=== PATIENT | female | born 1945 | race Caucasian/White ===

== ENCOUNTER → 2018-06-05 08:35 | Outpatient (CLI) | payer MEDICARE, OTHER, SELFPAY ==
[2018-06-05 11:15] LABS: AST(SGOT) 30 U/L (15-37); Alanine Aminotransfer ALT/SGPT 54 U/L (13-56); Anion Gap 11 (5-15); BUN 15 mg/dL (7-18); BUN/Creat Ratio 23.2 RATIO (10-20); Calcium,Total 8.7 mg/dL (8.5-10.1); Chloride 102 mmol/L (98-107); Cholesterol 167 mg/dL (200); Creatinine, Serum 0.65 mg/dL (0.55-1.02); EST Glomerular Filtration Rate 95 mL/min (>60); Est Glom Filt Rate - Afr Amer 115 mL/min (>60); Glucose 112 mg/dL (74-106); High Density Lipoprotein 69 mg/dL; Sodium Level 139 mmol/L (136-145); Triglycerides 66 mg/dL; Very Low Density Lipoprotein 13 mg/dL (5-40)
== END ==
PROVIDERS: Family Provider Family Medicine; PCP Family Medicine; Visit Provider Family Medicine
DX: I10 Essential (primary) hypertension (principal); E78.5 Hyperlipidemia, unspecified
CPT/HCPCS: 36415; 80048; 80061; 84450; 84460

== ENCOUNTER 2018-07-05 15:13 | Emergency (ER) | payer MEDICARE, OTHER, SELFPAY ==
[2018-07-05 15:14] VITALS: BP 161/66; PULSE 59; RESP 16; TEMP 36.6; O2SAT 96; BMI 25.7
--- NOTE | 2018-07-05 15:33 | RAD_ITS ---
STUDY: X-RAY - LUMBAR SPINE REASON FOR EXAM: Female, 72 years old. Sagittal plane with left-sided back and leg pain. TECHNIQUE: 3 view(s) of the lumbar spine were obtained. COMPARISON: None FINDINGS: Normal lumbar lordosis. There is no substantial scoliosis. There is a normal alignment of the vertebrae. There is multilevel endplate spondylosis of the lumbar vertebrae. There is multi-level degenerative disc disease with multi-level disc space narrowing. There is no evidence of acute fracture or loss of vertebral axial height. There is diffuse facet degenerative change. There is atherosclerotic calcification of the abdominal aorta without a demonstrated aneurysm. RAD/Lumbar Spine 2 or 3 Views IMPRESSION: Degenerative changes of the spine, as detailed above. Electronically Signed: Markell Cerna DO at 16:02 EST Tel [phone], Service support ,
--- NOTE | 2018-07-05 15:42 | ED.VISSUMM ---
- ER Visit Summary Date of Service: 07/05/18 Chief Complaint: Back pain History of Present Illness: The patient is a 72 F presenting for evaluation secondary to back pain. Patient reports that since yesterday she has had an onset of lower back pain that radiates somewhat down her left thigh. Patient denies that it was associated with any sort of spit civic injury. Patient states that it is a continuous pain that is worse with movement. She denies any bowel or bladder incontinence fevers recent surgeries or injections. Patient states that she did stumble over the weekend while she was removing snow, but she did not actually fall. Review of systems otherwise negative. Physical Examination: Vitals: Within normal limits General: Well-nourished well-developed no acute distress Head: Normocephalic atraumatic ENT: Moist mucous membranes Neck: Supple no JVD Cardiovascular: Heart regular rate and rhythm no murmurs Respiratory: Respirations nondistressed, lung sounds clear to auscultation bilaterally Abdominal: Soft, nontender, nondistended, normal bowel sounds, no evidence of abdominal masses or pulsatile mass Back: Normal to inspection, no midline tenderness to palpation, straight leg raise negative bilaterally Extremities: Nontender, nonedematous, 2+ radial and PT pulses bilaterally symmetric Skin: Normal color no rash Neuro: 5/5 strength hip flexion, knee flexion, knee extension, dorsiflexion, plantarflexion, EHL. Sensation intact over all dermatomes of the lower extremities bilaterally, 2+ patellar and Achilles reflexes bilaterally symmetric, negative clonus bilaterally Test Results: Lumbar x-ray demonstrates degenerative joint disease. Urinalysis is negative for blood or infection Emergency Department Course and Treatment: Patient presented with back pain. This pain seemed to radiate somewhat into her left groin, there is at least some concern for the possibility of a kidney stone so a urinalysis was obtained which was found to be negative making the likelihood of that much less. Patient's lumbar x-ray was essentially negative except for some degenerative arthritis. Patient did suffer a stumble a day or so prior to the onset of this back pain, and I believe that she likely has an element of a lumbar strain. She was recommended NSAIDs ice heat and stretching exercises for this. She was recommended to follow-up with primary care. Disposition: Discharge Impression: 1. Lumbosacral strain This note was generated with [employer] dictation software. It may contain incorrect words, spelling, and punctuation that were not noted in review of the chart prior to signing ED Disposition - Plan for ED Patient: Disposition: Home or Assisted Living Chief Complaint: Back Diagnosis: Lumbosacral strain Instructions: ED Sprain Strain Lumbar Referrals: Monika Venegas MD [Primary Care Provider] - 3-5 Days if not improving
[2018-07-05 16:06] LABS: Bacteria 0 SEEN /hpf (None Seen); Mucous, Urine 0 SEEN /hpf (<or=2+); Red Blood Cells-Urine 0 SEEN /hpf (0-5); Squamous Epithelial Cells - UA 0 SEEN /hpf (5-10); White Blood Cells 0 SEEN /hpf (0-5)
[2018-07-05 16:08] LABS: Color, Urine Yellow (Yellow); Glucose, Dipstick Normal (Normal); Ketone-Dipstick Negative (Negative); Leukocyte Esterase-Dipstick Negative /ul (Negative); Nitrite-Dipstick Negative (Negative); Occult Blood-Urine 10 /ul (Negative); Protein-Dipstick Negative (Negative); Urine Bilirubin Dipstick Negative (Negative); Urine Clarity Clear (Clear); Urine Urobilinogen Normal (Normal); Urine pH 6.5 (5.0 - 8.0)
[2018-07-05 16:55] VITALS: BP 172/67; PULSE 60; RESP 18; O2SAT 98
== END 2018-07-05 16:55 | disposition home or self-care (01) ==
PROVIDERS: Emergency Provider Emergency Medicine; Family Provider Family Medicine; PCP Family Medicine
DX: S39.012A Strain of muscle, fascia and tendon of lower back, initial encounter (principal); X58.XXXA Exposure to other specified factors, initial encounter; Y93.9 Activity, unspecified; Y92.9 Unspecified place or not applicable; M79.602 Pain in left arm; R20.2 Paresthesia of skin; I10 Essential (primary) hypertension; E78.00 Pure hypercholesterolemia, unspecified; Z79.899 Other long term (current) drug therapy
CPT/HCPCS: 72100; 81001; 99282

== ENCOUNTER 2018-09-06 15:30 | Outpatient (RCR) | payer MEDICARE, OTHER, SELFPAY ==
--- NOTE | 2018-07-26 15:26 | HP.PTEVAL_ITS ---
Patient's Visit Information FREDO MCGUIRE is a 72 year old F referred to Physical Therapy by Monika Venegas MD with a diagnosis of LOW BACK STRAIN. Date of Evaluation: 07/26/18 Physical Therapist: Ernie Darling PT, Cert MDT, OCS - Visit Plan Frequency: 2x /Week Duration: 4 Weeks Plan: DLS ABD/BACK,POSTURAL EX'S,MODLATIES PRN - Subjective Findings: This 72 y/o female presents to physical therapy with low back pain for 3weeks. Patient had to ER 3 weeks ago,did x-rays - . Patient left lumbar to pelvis region. Pain is described dull pain. Aggravted factors liffting,bending ,sitting. Alleviating factors walking and standing, Pain affects ADLS' and cleaning the house. Denies parathesia/tingling. Couging/sneezing -. Bowel/bladder -. No trauma . Possible incidous factors snow shoveling. Patient has had no prior therapy. Patient pain affects QOL and function. 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 SOCAIL: - Pain Left Back Pain Intensity (Out of 10): 4 Pain Intensity Range: 10 - Objective POSTURE: mild foward posture. GAIT: ambulates with normal alize. NEURO: denies parathesia/tingling,reflexes L3-4,L4-5,L5-S1 2/3. PALPATION: unremarkable. MMT: quads/hams 4/5,hip flexion 4-/5,ankle 4/5. SYMMMTRIES: align. LUMBAR ROM: flexion min loss decrease curve reversal,side glides decrease segmental motion,extenison mod/severe loss pain - Special Tests L/S Slump test left side: Negative L/S Slump test right side: Negative L/S Left Straight Leg Raise: Negative L/S Right Straight Leg Raise: Negative Lumbar Standing: Flexion - Mechanical Response: No effect Lumbar Standing: Flexion - Symptoms During Testing: No effect Lumbar Standing: Flexion - Symptoms After Testing: No effect Lumbar Standing: Extension - Mechanical Response: No effect Lumbar Standing: Extension - Symptoms During Testing: Increases Lumbar Standing: Extension - Symptoms After Testing: No worse Lumbar Standing: Right Side Glides - Mechanical Response: No effect Lumbar Standing: Right Side [place] - Symptoms During Testing: No effect Lumbar Standing: Right Side [place] - Symptoms After Testing: No effect Lumbar Standing: Left Side [place] - Mechanical Response: No effect Lumbar Standing: Left Side [place] - Symptoms During Testing: No effect Lumbar Standing: Left Side [place] - Symptoms After Testing: No effect - Goals Goal 1:: Independant with HEP Goal Time Frame: 4-6 Weeks Goal 2:: Independant with posture for ADL'S Goal Time Frame: 4-6 Weeks Goal 3:: Decrease lumbar pain by 50 % or greater to improve function and QOL Goal Time Frame: 4-6 Weeks Goal 4:: Patient to improve lumbar ROM for function of recovery Goal Time Frame: 4-6 Weeks Goal 5:: Patient ROSINA back owestry score by 5 points or greater to improve function. Goal Time Frame: 4-6 Weeks - Rehabilitation Potential Physical Therapy Diagnosis: Patient has symmtrical lumbtar pain with pain with extension,affects housework tasks,decrease core strength thus benifit from skilled PT Rehabilitation Potential: Good - Anticipated Interventions Patient/Client Instruction: Educate patient on: Condition, Plan of Care For the Purpose of:: To decrease pain, To increase ROM, To improve muscle performance and motor function, To improve ability to perform ADL's, To increase tolerance to activity/condition/position, To improve ability of physical actions for home/community/work/leisure, To improve health of tissue, To decrease soft tissue restriction, To increase flexibility/ROM, To improve health and function, To improve ability to perform tasks related to life management Therapeutic Exercise to Include: Strength training, Postural training, Flexibilty training, Active ROM, Dynamic Lumbar Stabilization For the Purpose of:: To decrease pain, To increase ROM, To improve muscle performance and motor function, To increase tolerance to activity/condition/position, To improve performance and independence with ADL's, To improve ability of physical actions for home/community/work/leisure, To improve health of tissue, To decrease soft tissue restriction, To increase flexibility/ROM, To improve ability to perform tasks related to life management TENS: Yes IF ES: Yes Cryotherapy (ice pack, ice massage): Yes Thermo therapy (hot pack): Yes Ultrasound (thermal/non thermal): Yes For the Purpose of:: To decrease pain, To increase ROM, To improve nutrient delivery to tissue, To increase oxygenation perfusion, To improve health of tissue, To decrease soft tissue restriction Thank you for the opportunity to evaluate your patient. For Medicare and Medicare HMO plans, please review the plan of care and approve it. It will need to be FAXED BACK to us at [phone] for Medicare purposes. For Medicare only, by signing this I certify the plan of care. Please let me know if there are questions or concerns regarding this plan of care. Physician Signature: Date:
--- NOTE | 2018-09-06 15:45 | HP.PTDCSUM ---
- PT D/C Summary It has been my pleasure to treat FREDO MCGUIRE under orders from Monika Venegas MD, for the diagnosis of LOW BACK STRAIN for a total of 9 visit(s). Discharge Date: 09/06/18 Please see the following information for a summary of their discharge status. - Subjective Subjective: Doing well ..Patient is able to do ADL''s and function - Pain Left Back Pain Intensity (Out of 10): 0 R back Pain Intensity (Out of 10): 0 LB Pain Intensity (Out of 10): 0 - Overall Improvement % Improvement: 100 - Objective Objective/Function: POSTURE: mild thoracic kyphosis. GAIT: normal alize. MMT: quads/hams/hip 4/5. LUMBAR ROM: lumbar flexion WFL ,extesnion min loss,side glides min loss. -SLR - Goals Goal 1:: Independant with HEP Goal Progress: Goal Met Goal 2:: Independant with posture for ADL'S Goal Progress: Goal Met Goal 3:: Decrease lumbar pain by 50 % or greater to improve function and QOL Goal Progress: Goal Met Goal 4:: Patient to improve lumbar ROM for function of recovery Goal Progress: Goal Met Goal 5:: Patient ROSINA back owestry score by 5 points or greater to improve function. Goal Progress: Goal Met - Plan Plan: D/C TO HEP AND GYM POSSIBLE AT - D/C Information Discharge Comments: HEP AND GYM AT If there are questions or concerns regarding this patient's physical therapy, please feel free to call me at [phone]. Thank you for the referral of this patient. Sincerely, Ernie Darling, PT, Cert MDT, OCS
== END 2018-09-06 19:00 | disposition home or self-care (01) ==
LOC: PT 15:30
PROVIDERS: Family Provider Family Medicine; PCP Family Medicine; Visit Provider Family Medicine
DX: S39.012D Strain of muscle, fascia and tendon of lower back, subsequent encounter (principal)
CPT/HCPCS: 97110; 97162; 97530

== ENCOUNTER → 2018-12-11 | Outpatient (CLI) | payer MEDICARE, OTHER, SELFPAY ==
[2018-12-11 13:59] LABS: AST(SGOT) 18 U/L (15-37); Alanine Aminotransfer ALT/SGPT 28 U/L (13-56); Anion Gap 7 (5-15); BUN 16 mg/dL (7-18); BUN/Creat Ratio 21.5 RATIO (10-20); Calcium,Total 8.8 mg/dL (8.5-10.1); Chloride 105 mmol/L (98-107); Cholesterol 146 mg/dL (200); Creatinine, Serum 0.74 mg/dL (0.55-1.02); EST Glomerular Filtration Rate 81 mL/min (>60); Est Glom Filt Rate - Afr Amer 98 mL/min (>60); Glucose 115 mg/dL (74-106); High Density Lipoprotein 66 mg/dL; Potassium 4.1 mmol/L (3.5-5.1); Sodium Level 140 mmol/L (136-145); Triglycerides 54 mg/dL; Very Low Density Lipoprotein 11 mg/dL (5-40)
== END | disposition home or self-care (01) ==
LOC: MFPLAB 10:11
PROVIDERS: Family Provider Family Medicine; PCP Family Medicine; Visit Provider Family Medicine
DX: E78.5 Hyperlipidemia, unspecified (principal); I10 Essential (primary) hypertension
CPT/HCPCS: 36415; 80048; 80061; 84450; 84460

== ENCOUNTER → 2019-06-11 10:06 | Outpatient (CLI) | payer MEDICARE, OTHER, SELFPAY ==
[2019-06-11 13:01] LABS: Anion Gap 5 (5-15); BUN 17 mg/dL (7-18); BUN/Creat Ratio 23.7 RATIO (10-20); Calcium,Total 8.8 mg/dL (8.5-10.1); Chloride 100 mmol/L (98-107); Creatinine, Serum 0.72 mg/dL (0.55-1.02); EST Glomerular Filtration Rate 84 mL/min (>60); Est Glom Filt Rate - Afr Amer 102 mL/min (>60); Glucose 121 mg/dL (74-106); Potassium 3.6 mmol/L (3.5-5.1); Sodium Level 134 mmol/L (136-145)
== END ==
PROVIDERS: Family Provider Family Medicine; PCP Family Medicine; Visit Provider Family Medicine
DX: I10 Essential (primary) hypertension (principal)
CPT/HCPCS: 36415; 80048

== ENCOUNTER → 2019-07-10 10:39 | Outpatient (CLI) | payer MEDICARE, OTHER, SELFPAY ==
--- NOTE | 2019-07-10 10:42 | BI_ITS ---
MAMMOGRAPHY - BILATERAL SCREENING REASON FOR EXAM: Female, 73 years old. Routine annual screening examination. PERTINENT HISTORY: Non-contributory. History of remote bilateral breast reduction and excisional breast biopsies. TECHNIQUE: Digital bilateral breast rhea (3D mammographic acquisition) in the CC and MLO projections. 2-D mediolateral oblique (MLO) and craniocaudad (CC) views of both breasts were obtained. CAD: Full Field Digital Mammography with Computer Added Detection was performed. COMPARISON: Comparison is made with prior examination dated May 27, 2016 and May 26, 2015. FINDINGS: Breast Composition: The breasts are heterogeneously dense, which may obscure small masses. There are no dominant masses or suspicious calcifications. Stable benign-appearing bilateral axillary lymph nodes. Stable architectural distortion from prior breast surgeries. No other significant abnormalities are identified. There has been no significant change since the prior study. BI/SCREEN MAMM (CAD) W/RHEA BILAT IMPRESSION: Stable bilateral screening mammogram. Yearly follow-up mammogram recommended. (A) ASSESSMENT CATEGORY: BIRADS Category 2: Benign. A letter regarding these results will be sent to the patient by the facility within 30 days. Approximately 10% of breast cancers are not detected by mammography. A normal mammogram should not delay biopsy of a clinically suspicious abnormality. [id number] Electronically Signed: Eugenio Bradshaw, at 12:57 EST , Service support ,
--- NOTE | 2019-07-10 10:51 | BD_ITS ---
STUDY: DUAL ENERGY X-RAY ABSORPTIOMETRY / DXA REASON FOR EXAM: Female, 73 years old. 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 COMPARISON: None. FINDINGS: Lumbar Spine (L1-L4): g/cm2 (0.917) / T-score (-2.1) / Z-score (-0.3) Findings are suggestive of osteopenia with a high fracture risk. Left Femur Total: g/cm2 (0.863) / T-score (-1.1) / Z-score (0.6) Left Femoral Neck: g/cm2 (0.679) / T-score (-2.6) / Z-score (-0.6) Right Femur Total: g/cm2 (0.867) / T-score (-1.1) / Z-score (0.6) Right Femoral Neck: g/cm2 (0.734) / T-score (-2.2) / Z-score (-0.2) BD/Dexa Bone Density Study IMPRESSION: The patient is considered osteoporotic as outlined below according to World Ar Organization (WHO) criteria with a high fracture risk. Reference Information: The T-score is the number of standard deviations above or below the standard which is normal for young adults at their peak bone mineral density. The World Health Organization (WHO) interprets the T-scores as follows: Above -1 Normal bone density Between -1 and -2.5 Osteopenia Equal to / or below -2.5 Osteoporosis As a practical clinical guideline, osteopenia may be graded as follows: Mild -1 through -1.5 Moderate -1.6 through -2.0 Severe -2.1 through -2.4 The Z-score is the number of standard deviations above or below age-matched controls. A Z-score of less than -1.5 would be considered abnormal. References: 1. NIH Osteoporosis and Related Bone Diseases http://www.osteo.org 2. International Society for Clinical Densitometry http://www.iscd.org 3. National Osteoporosis Foundation http://www.nof.org Electronically Signed: Eugenio Bradshaw, at 13:02 EST , Service support ,
== END ==
PROVIDERS: PCP Family Medicine; Referring Provider Family Medicine; Visit Provider Family Medicine
DX: Z00.00 Encounter for general adult medical examination without abnormal findings (principal); Z12.31 Encounter for screening mammogram for malignant neoplasm of breast; Z78.0 Asymptomatic menopausal state
CPT/HCPCS: 77063; 77067; 77080

== ENCOUNTER → 2019-12-11 10:04 | Outpatient (CLI) | payer MEDICARE, OTHER, SELFPAY ==
[2019-12-11 13:06] LABS: AST(SGOT) 14 U/L (15-37); Alanine Aminotransfer ALT/SGPT 25 U/L (13-56); Anion Gap 7 (5-15); BUN 15 mg/dL (7-18); BUN/Creat Ratio 19.9 RATIO (10-20); Calcium,Total 9.4 mg/dL (8.5-10.1); Chloride 97 mmol/L (98-107); Cholesterol 177 mg/dL (200); Creatinine, Serum 0.76 mg/dL (0.55-1.02); EST Glomerular Filtration Rate 79 mL/min (>60); Est Glom Filt Rate - Afr Amer 96 mL/min (>60); Glucose 133 mg/dL (74-106); High Density Lipoprotein 56 mg/dL; Potassium 3.8 mmol/L (3.5-5.1); Sodium Level 133 mmol/L (136-145); Triglycerides 131 mg/dL; Very Low Density Lipoprotein 26 mg/dL (5-40)
== END ==
PROVIDERS: PCP Family Medicine; Referring Provider Family Medicine; Visit Provider Family Medicine
DX: I10 Essential (primary) hypertension (principal); E78.5 Hyperlipidemia, unspecified
CPT/HCPCS: 36415; 80048; 80061; 84450; 84460

== ENCOUNTER → 2020-08-13 10:26 | Outpatient (CLI) | payer MEDICARE, OTHER, SELFPAY ==
[2020-08-12 14:34] VITALS: BMI 27.8
[2020-08-13 12:47] LABS: BUN 17 mg/dL (7-18); Creatinine, Serum 0.77 mg/dL (0.55-1.02); Glucose 133 mg/dL (74-106)
[2020-08-13 12:48] LABS: Anion Gap 7 (5-15); Calcium,Total 9.1 mg/dL (8.5-10.1); Chloride 99 mmol/L (98-107); EST Glomerular Filtration Rate 77 mL/min (>60); Est Glom Filt Rate - Afr Amer 93 mL/min (>60); Potassium 3.9 mmol/L (3.5-5.1); Sodium Level 133 mmol/L (136-145)
== END ==
PROVIDERS: PCP Family Medicine; Referring Provider Family Medicine; Visit Provider Family Medicine
DX: I10 Essential (primary) hypertension (principal)
CPT/HCPCS: 36415; 80048

== ENCOUNTER 2020-08-19 09:23 | Day surgery (SDC) | payer MEDICARE, OTHER, SELFPAY ==
[2020-08-12 14:34] VITALS: BMI 27.8
[2020-08-19] VITALS (9 sets, daily range): BP systolic 119–179; BP diastolic 49–74; PULSE 60–69; RESP 14–18; TEMP 36.2–37.2; O2SAT 95–100; BMI 26.9
[2020-08-19] MEDS: Lactated Ringers 1,000 ML 100 ML IV ×2 (10:09→14:45)
--- NOTE | 2020-08-19 10:32 | PCM.HP.BLA ---
Problem List (1) Hemorrhoids Status: Acute Qualifiers: Hemorrhoid type: third degree Qualified Code(s): K64.2 - Third degree hemorrhoids History and Physical Date of Admission: 08/19/20 Intake Vital Signs 08/12/20 Height 4 ft 8 in 08/12/20 Weight: 124 lb 08/12/20 BMI 27.8 08/12/20 BP 184/74 H 08/12/20 Blood Pressure Location Rt brachial 08/12/20 Position Sitting 08/12/20 Respiration 16 Intake Visit Reasons: HEMORRHOIDS Chief Complaint: hemorrhoids Personal Support Worker Required: No Is patient in pain?: No Allergies No Known Allergies Allergy (Verified 08/12/20 14:34) Medications Atenolol [Tenormin (beta bright)] 50 mg PO DAILY 07/05/18 [History Confirmed 07/05/18] Atorvastatin Calcium [Lipitor] 10 mg PO DAILY 07/05/18 [History Confirmed 07/05/18] Hydrochlorothiazide [Hctz] 25 mg PO DAILY 07/05/18 [History Confirmed 07/05/18] multivitamin 1 tab PO DAILY 08/12/20 [History Confirmed 08/12/20] PFSH Medical History (Updated 08/12/20 @ 14:33 by Breana Flynn) High cholesterol (Acute) HTN (hypertension) (Chronic) Surgical History (Updated 08/12/20 @ 14:46 by Breana Flynn) S/P bilateral breast reduction (Acute) S/P carpal tunnel release (Acute) S/P hysterectomy (Acute) Family History (Updated 08/12/20 @ 14:33 by Breana Flynn) Father CVA (cerebral vascular accident) Heart disease Mother Diabetes Social History (Updated 08/12/20 @ 15:[address] Damien Gallegos MD) Smoking Status: Never smoker alcohol intake: never HPI HPI HPI: FREDO MCGUIRE, is a 74 F who presents to the office today for HPI HPI HPI: FREDO MCGUIRE, is a 74 F who presents to the office today for Hemorrhoids. The patient reports that she has discomfort with defecation as well as blood in the stool. She says they intermittently bleed but they have started bleeding even with just urination. Patient's last colonoscopy was in 2015 was normal. ROS General General: No weight change or fatigue Cardio Cardiovascular: Yes high blood pressure; no murmur, pacemaker, heart disease, atrial fibrillation, heart attack, heart stent, palpitations, shortness of breat with exertion or chest pain Psych Psychiatric: No depression or anxiety Resp Respiratory: Yes shortness of breath, No sleep apnea, No cough, No COPD, No asthma, No emphysema, No wheezing Gastro Gastrointestinal: No abdominal pain, No nausea or vomiting, Yes diarrhea, No constipation, No blood in stool, No acid reflux, Yes hemorrhoids, No ulcers, No gallbladder problem, No black,tarry stools Hossein Hematologic: No blood thinners Exam Const General: cooperative Orientation: alert, oriented x3 Resp Effort & Inspection: normal respiratory effort Auscultation: clear to auscultation bilaterally Cardio Rate: regular rate Rhythm: regular rhythm Heart Sounds: no murmurs GI Inspection: non-distended Palpation: soft, nontender Other: On rectal exam the patient has grade 3 and 4 hemorrhoids with some ulceration of the internal hemorrhoids that are prolapsing Assessment & Plan Problems 1. Grade IV hemorrhoids K64.3 Plan The patient has third and fourth degree hemorrhoids which are ulcerated and likely the source of her bleeding. It appears that she has prolapse of the internal portion of her hemorrhoids. I did discuss hemorrhoidectomy with her. I discussed the risks including but not limited to bleeding, infection, recurrence of hemorrhoids, ongoing pain after surgery. The patient understands the risks and is willing to proceed with hemorrhoidectomy. Damien Gallegos MD Pager: [facility] [address] [place] [address], [address] [place] [address] Office:
[2020-08-19] MEDS: Cefotetan 2 GM in 0.9% NS 100 ML IV (10:50)
--- NOTE | 2020-08-19 11:00 | HEM_PTH ---
PATIENT: FREDO MCGUIRE LOC: [facility] U#:[id number] AGE/SX: 74/F ROOM: RE08/19/[address]: Dr. Damien Gallegos MD : 1945 BED: DIS: 08/19/2020 SPEC #: [id number] RECD: 08/19/20 12:17 STATUS: ALEJANDRINA RESonya #: [id number] MARLYN: 08/19/20 11:[address]: Damien Gallegos DEPT: SURGICAL PATHOLOGY RECD BY: Zeynep Gonzalez ENTERED: 08/19/20 12:47 SP TYPE: HEMORRHOID OTHR DR: Dr. Monika Venegas MD Tissues: HEMORRHOIDS Procedures: Surgery Specimen Level III HEADER OPERATION: Hemorrhoidectomy PRE-OP DIAGNOSIS: Grade IV hemorrhoids TISSUE SUBMITTED: A - Right superior hemorrhoid, B - Right inferior hemorrhoid MICROSCOPIC DIAGNOSIS A. Right superior hemorrhoid, hemorrhoidectomy: Submucosal vascular ectasia and thrombosis consistent with hemorrhoid. B. Right inferior hemorrhoid, hemorrhoidectomy: Submucosal vascular ectasia and thrombosis consistent with hemorrhoid. AM:levy 08/20/2020 MICROSCOPIC DESCRIPTION Slides are reviewed. GROSS DESCRIPTION A - Received in fixative is one container labeled with the patient's name and designated right superior hemorrhoid. The specimen consists of two irregular fragments of light costa mucosa with attached submucosal tissue that in aggregate measure 3 x 1.7 x 1.5 cm. Both fragments are bisected and submitted in their entirety in one cassette. B - Received in fixative is one container labeled with the patient's name and designated right inferior hemorrhoid. The specimen consists of one irregular fragment of light costa mucosa with attached submucosal tissue measuring 1.5 x 1.5 x 1 cm. The specimen is bisected and totally submitted in one cassette. / AM:levy 08/19/20 TC:5 CPT: 79294 x2
[2020-08-19] MEDS: Bupivacaine Mpf 0.5% 30 ML VIAL (11:15)
[2020-08-19] MEDS: Dibucaine 30 GM Tube 1 APPLIC (11:22)
--- NOTE | 2020-08-19 11:41 | PCM.OPRPT ---
Problem List (1) Hemorrhoids Status: Acute Qualifiers: Hemorrhoid type: third degree Qualified Code(s): K64.2 - Third degree hemorrhoids Report of Operation Date of Procedure: 08/19/20 Pre-Operative Diagnosis: Bleeding hemorrhoids grade 3 Post-Operative Diagnosis: Same Surgery/Procedure Performed:: Hemorrhoidectomy, 2 column internal and external Specimen's removed: Right superior and right inferior hemorrhoid Description of Procedure: The patient was brought back to the operating room and general anesthesia was induced. The patient was placed in a prone jackknife position. The buttocks were taped open. The perineum was prepped and draped in the normal usual fashion. A well-lubricated finger was used to perform a digital rectal exam the patient had 2 hemorrhoids on the right side which were ulcerated and enlarged. The patient also had a few hemorrhoids externally around the left side but none of those were ulcerated. It is likely that the runs on the right were larger and causing her issues. The right superior hemorrhoid was isolated and retracted medially. The harmonic scalpel was used to take the hemorrhoid material down and the mucosa was reapproximated with a running 2-0 chromic suture. In the same fashion the inferior hemorrhoid was grasped and retracted medially. Harmonic scalpel was used to take down this hemorrhoid column. The mucosa was reapproximated using a running 2-0 chromic suture. The area was irrigated and suctioned dry and appeared to be having good hemostasis. The area was injected with local anesthetic. Next a Gelfoam gauze was rolled and coated with dibucaine gel and placed into the rectal vault. Dressings were applied and the patient was awoken and taken to PACU in stable condition. - Admit VTE Documentation VTE Mechan Device Prophylaxis: SCD's
--- NOTE | 2020-08-19 11:50 | DCINST_ITS ---
Discharge Diet: No Restrictions Discharge Activity: Return to Normal Activity, May Not Drive - while you are taking narcotic pain medications. Do not drive, work with heavy equipment or sign legal documents for 24 hours after your surgery. Additional Activity Instructions:: Be aware that pain medications may cause nausea. You should typically eat light foods as you take your pain medications. Pain medications may also cause constipation, if you have difficulty with this please discuss with your doctor. Call your doctor if your incision/area has: Continuous Slow Oozing, Sudden Increased Bleeding, Increased Pain/ Swelling, Increased Redness, Foul Smelling Discharge, Swelling at the incision site Call your doctor if you observe: Fever of 101 or Higher Additional Dressing/Incision Instructions:: Leave the operative bandage on for 2 days. If a local anesthetic plug was placed in the anal area, try not to expel for [address]ucaine ointment on the perianal area as needed. Sitz baths twice daily and after bowel movements. Allergies/Adverse Reactions: Allergies No Known Allergies Allergy (Verified 08/19/20 09:43) Medications to take at Discharge Atenolol [Tenormin (beta bright)] 50 mg PO DAILY 07/05/18 Atorvastatin Calcium [Lipitor] 10 mg PO DAILY 07/05/18 Hydrochlorothiazide [Hctz] 25 mg PO DAILY 07/05/18 multivitamin 1 tab PO DAILY 08/12/20 Ascorbic Acid/Elderberry Fruit [Elderberry-Vit C 50-100 mg Chw] 1 ea PO DAILY 08/14/20 Calcium Carbonate/Vitamin D3 [Calcium 500 mg-Vit D3 600 Unit] 2 ea PO DAILY 08/14/20 Cholecalciferol (Vitamin D3) [Vitamin D3] 125 mcg PO DAILY 08/14/20 Cyanocobalamin (Vitamin B-12) [Vitamin B-12] 1,000 mcg PO DAILY 08/14/20 Glucosam/[place]-Msm1/C/Javier/Bosw [Osteo Bi-Flex Caplet] 2 tab PO DAILY 08/14/20 Docusate Sodium [Colace] 100 mg PO BID #30 cap 08/19/20 Oxycodone HCl/Acetaminophen [Percocet 5-325 mg Tablet] 1 - 2 tab PO Q6H PRN PRN 5 Days #40 tablet 08/19/20 The following prescriptions were given: Docusate Sodium [Colace] 100 mg PO BID #30 cap Transmission Status: Pending to [facility] Oxycodone HCl/Acetaminophen [Percocet 5-325 mg Tablet] 1 - 2 tab PO Q6H PRN PRN 5 Days #40 tablet PRN Reason: Pain Score 4-10/10 Transmission Status: Sent to [facility] Primary Care Physician: Monika Venegas MD [Primary Care Provider] - Test Results: Test results from this visit will be discussed in further detail at your follow- up appointment, if applicable. Please Follow Up With: Damien Gallegos MD When: Please call to schedule 2 week follow up appointment. [phone]
== END 2020-08-19 16:15 | disposition home or self-care (01) ==
LOC: SDC 09:24 → AC 09:24
PROVIDERS: PCP Family Medicine; Referring Provider Surgery; Visit Provider Surgery
PROC: (CPT 46260; principal; 2020-08-19 10:45)
DX: K64.2 Third degree hemorrhoids (principal); Z20.828 Contact with and (suspected) exposure to other viral communicable diseases; I10 Essential (primary) hypertension; E78.00 Pure hypercholesterolemia, unspecified; Z78.0 Asymptomatic menopausal state; Z86.718 Personal history of other venous thrombosis and embolism; Z79.899 Other long term (current) drug therapy
CPT/HCPCS: 00902; 46260; 87426; 88304; C9803; J7120; J2405

== ENCOUNTER 2020-08-28 18:54 | Observation (INO) | payer MEDICARE, OTHER, SELFPAY ==
[2020-08-19 09:45] VITALS: BMI 26.9
[2020-08-28 18:56] VITALS: BP 173/76; PULSE 63; RESP 16; TEMP 36.4; O2SAT 97; BMI 27.3
[2020-08-28 19:55] VITALS: BP 157/63; PULSE 64; RESP 16; O2SAT 99
[2020-08-28 19:58] LABS: Absolute Lymphocyte Count 0.98 X10^3/uL (0.83-4.51); Absolute Neutrophil Count 10.6 X10^3/uL (2.0-7.7); Basophil# 0.03 X10^3/uL; Basophil% 0.2 % (0-1); Eosinophil# 0.09 X10^3/uL; Eosinophils% 0.7 % (0-5); Hematocrit 30.1 % (37-47); Hemoglobin 10.9 g/dL (12.0-15.0); Lymphocyte # 0.98 X10^3/ul (4.0); Lymphocyte % 7.7 % (19-41); Mean Corp Hgb Conc 36.2 g/dL (32-36); Mean Corpuscular Hgb 30.4 pg (27.0-32.0); Mean Corpuscular Volume 84.1 fL (81-99); Mean Platelet Vol. 9.8 fl (6.2-12.0); Monocyte# 0.99 X10^3/uL; Monocyte% 7.8 % (0-10); NRBC Flagged by Analyzer 0 % (0-5); Neutrophil # 10.58 X10^3/uL (2.7-7.7); Neutrophil % 83.1 % (47-70); Platelet Count 266 K/mm3 (150-450); RBC Distribution Width CV 13.2 % (11.6-14.6); RBC Distribution Width SD 39.7 fl (35.1-43.9); Red Blood Count 3.58 M/mm3 (4.2-5.4); White Blood Count 12.7 K/mm3 (4.4-11.0)
[2020-08-28 20:10] LABS: Prothrombin Time (Protime)PT. 12.7 SECONDS (11.7-14.9)
[2020-08-28 20:14] LABS: ALB/GLOB Ratio 1.2 RATIO (0.9-2.4); AST(SGOT) 33 U/L (15-37); Alanine Aminotransfer ALT/SGPT 45 U/L (13-56); Albumin, Serum 4.1 g/dL (3.2-5.0); Alkaline Phosphatase 89 U/L (45-117); Anion Gap 6 (5-15); BUN 11 mg/dL (7-18); BUN/Creat Ratio 17.4 RATIO (10-20); Calcium,Total 8.9 mg/dL (8.5-10.1); Chloride 90 mmol/L (98-107); Creatinine, Serum 0.63 mg/dL (0.55-1.02); EST Glomerular Filtration Rate 97 mL/min (>60); Est Glom Filt Rate - Afr Amer 117 mL/min (>60); Globulin 3.3 g/dL (2.2-4.2); Glucose 116 mg/dL (74-106); Potassium 3.8 mmol/L (3.5-5.1); Protein, Total 7.4 g/dL (6.4-8.2); Sodium Level 122 mmol/L (136-145)
--- NOTE | 2020-08-28 20:18 | HP.PCM_ITS ---
Problem List (1) Rectal bleeding Status: Acute History of Present Illness Date of Admission: 08/28/20 The patient is a 74 year old F who presents to the emergency room with rectal bleeding. The patient had a hemorrhoidectomy 10 days ago for rectal bleeding and irritation. Since then the patient reports she has been doing well until today. She was having 3 loose bowel movements this morning and then this afternoon she had a large bloody bowel movement. Since then she has had several large bloody bowel movements. She is not having any abdominal pain or bloody vomiting. Past Medical History Medical History: Medical History (Last Updated 08/12/20 @ 14:33 by Breana Flynn) High cholesterol E78.00 HTN (hypertension) I10 Allergies No Known Allergies Allergy (Verified 08/28/20 18:56) Home Medications: Ambulatory Orders Medication Instructions Recorded Atenolol [Tenormin (beta bright)] 50 mg PO DAILY 07/05/18 Atorvastatin Calcium [Lipitor] 10 mg PO DAILY 07/05/18 Hydrochlorothiazide [Hctz] 25 mg PO DAILY 07/05/18 multivitamin 1 tab PO DAILY 08/12/20 Ascorbic Acid/Elderberry Fruit 1 ea PO DAILY 08/14/20 [Elderberry-Vit C 50-100 mg Chw] Calcium Carbonate/Vitamin D3 2 ea PO DAILY 08/14/20 [Calcium 500 mg-Vit D3 600 Unit] Cholecalciferol (Vitamin D3) 125 mcg PO DAILY 08/14/20 [Vitamin D3] Cyanocobalamin (Vitamin B-12) 1,000 mcg PO DAILY 08/14/20 [Vitamin B-12] Glucosam/Jeramie-Msm1/C/Javier/Bosw 2 tab PO DAILY 08/14/20 [Osteo Bi-Flex Caplet] Docusate Sodium [Colace] 100 mg PO BID #30 cap 08/19/20 Surgical History: Surgical History (Last Updated 08/12/20 @ 14:46 by Breana Flynn) S/P bilateral breast reduction Z98.890 S/P carpal tunnel release Z98.890 S/P hysterectomy Z90.710 Smoking Status: Never smoker Review of Systems Constitutional: Denies: Anorexia, Fever HEENT: Denies: Difficulty Swallowing Respiratory: Denies: Shortness of Breath Gastrointestinal: Reports: Diarrhea, Hematochezia. Denies: Abdominal Pain, Constipation, Hematemesis, Nausea, Melena, Vomiting Genitourinary: Denies: Dysuria Musculoskeletal: Denies: Joint Tenderness Skin: Denies: Jaundice Neurological: Denies: Balance problems Psychiatric: Reports: Anxiety. Denies: Depression Hematologic/ Lymphatic: Denies: Easy Bleeding VTE Information - Inpt Only VTE Present on Admission: No VTE Mechan Device Prophylaxis: SCD's Patient Problems: Active and Suspected Problems (Last Updated 08/12/20 @ 14:33 by Breana Flynn) Rectal bleeding (Acute) - Physical Exam Vitals/I&O's: Vital Signs Temp Pulse Resp BP Pulse Ox 97.5 F L 64 16 157/63 H 99 08/28/20 18:56 08/28/20 19:55 08/28/20 19:55 08/28/20 19:55 08/28/20 19:55 Oxygen Delivery Method Room Air Weight: 124 lb Body Mass Index (BMI) 27.3 General: Alert, Oriented x3 Neck: No JVD Lungs: Normal air movement Cardiovascular: Regular rate, Regular Rhythm Abdomen: Soft, Non Tender, Non-Distended, - - Red blood on rectal exam Skin: No rashes Musculoskeletal: No Muscle Wasting Neurological: Cranial nerves II-XII grossly intact Psych/Mental Status: Normal Affect Laboratory Results 08/28/20 19:48: WBC 12.7 H, RBC 3.58 L, Hgb 10.9 L, Hct 30.1 L, MCV 84.1, MCH 30.4, MCHC 36.2 H, RDW Std Deviation 39.7, RDW Coeff of Marga 13.2, Plt Count 266, MPV 9.8, Immature Gran % (Auto) 0.500, Neut % (Auto) 83.1 H, Lymph % (Auto) 7.7 L, [place] % (Auto) 7.8, Eos % (Auto) 0.7, Baso % (Auto) 0.2, Absolute Neuts (auto) 10.6 H, Absolute Lymphs (auto) 0.98, Nucleated RBC % 0 08/28/20 19:48: PT 12.7, INR 1.0, APTT 24.0 L 08/28/20 19:48: Sodium 122 L, Potassium 3.8, Chloride 90 L, Carbon Dioxide 26.0, Anion Gap 6, BUN 11, Creatinine 0.63, Estim Creat Clear Calc 42.50, Est GFR (MDRD) Af Amer 117, Est GFR (MDRD) Non-Af 97, BUN/Creatinine Ratio 17.4, Glucose 116 H, Calcium 8.9, Total Bilirubin 0.80, AST 33, ALT 45, Alkaline Phosphatase 89, Total Protein 7.4, Albumin 4.1, Globulin 3.3, Albumin/Globulin Ratio 1.2 08/28/20 19:48: Blood Type Pending, Antibody Screen Pending Current Medications Acetaminophen (Acetaminophen 325 Mg Tablet) 650 mg PO Q4H PRN PRN PRN Reason: P/F Sodium Chloride () 1,000 mls @ 100 mls/hr IV .Q10H TISHA Ondansetron HCl (Ondansetron 4 Mg/2 Ml Vial) 4 mg IV Q6H PRN PRN PRN Reason: NAUSEA Pantoprazole Sodium (Pantoprazole Sodium 40 Mg Tablet) 40 mg PO DAILY TISHA Assessment/Plan All Active Problems (Last Updated 08/12/20 @ 14:33 by Breana Flynn) Hemorrhoids (Acute) Rectal bleeding (Acute) 74-year-old female with rectal bleeding 1. The patient is having a heavy amount of rectal bleeding currently. She had a hemorrhoidectomy 10 days ago. On rectal exam the hemorrhoids did not appear to be active bleeding but then she had a large bowel movement with blood after rectal exam. I am unsure if the patient is having bleeding from the hemorrhoids or proximal GI tract. 2. At this time I will admit the patient and continue serial hemoglobin checks. Currently her hemoglobin is 10.9. She has had a type and screen. If the bleeding continues through the night and does not cease I will take her back for exploration tomorrow to see if any of the hemorrhoidectomy sites are bleeding. If the bleeding appears to be coming from more proximal we will bowel prep her and perform a colonoscopy. Her last colonoscopy was in 2016 and was normal. Patient is not taking any blood thinners. She will be kept on a clear liquid diet. Damien Gallegos MD Pager: [facility] [place] [facility] [address] [place] [address], [address] [place] [address] Office:
--- NOTE | 2020-08-28 20:21 | ED.VIS.GEN ---
History of Present Illness Chief Complaint: GI Bleed Informant: Patient Onset: Today Context: Sudden Onset Timing: Intermittent Narrative: Patient is a 74-year-old female that is status post hemorrhoidectomy presenting with rectal bleeding. Patient is on any blood thinners. She states she started having multiple bowel movements this morning and started having blood with her bowel movements around 430 this afternoon. She states since then she has had 6 or 7 episodes of bloody diarrhea. She is not sure if the stool is black or discomfort and blood. She states before that she was having normal postoperative bleeding. She denies any lightheadedness or dizziness. She denies any cyst abdominal pain. She has been taking Tylenol and Motrin to control her pain. No other complaints at this time. Past Medical History - Allergies and Home Meds Allergies/Adverse Reactions: Allergies No Known Allergies Allergy (Verified 08/28/20 18:56) Primary Care Physician: Monika Venegas MD [Primary Care Provider] - Past Medical History: - - Hypertension, hyperlipidemia Surgical History: - - Hemorrhoidectomy Lives: Alone Smoking Status: Never smoker Review of Systems General: Denies: Chills, Fever, Sweats Eyes: Denies: Visual changes - bilaterally, Diplopia ENT: Denies: Rhinorrhea, Sore throat Cardiovascular: Denies: Chest pain, Palpitations Respiratory: Denies: Dyspnea, Cough, Dyspnea on exertion Gastrointestinal: Reports: Diarrhea, Hematochezia. Denies: Abdominal pain, Nausea, Vomiting, Melena Genitourinary: Denies: Dysuria, Hematuria, Frequency Musculoskeletal: Denies: Back pain, Extremity Pain Skin: Denies: Rash, Wounds Neurological: Denies: Headache, Weakness, Numbness Physical Exam Vital Signs/Narrative: Vital Signs Temp Pulse Resp BP Pulse Ox 08/28/20 19:55 64 16 157/63 H 99 08/28/20 18:56 97.5 F L 63 16 173/76 H 97 Inital Vital Signs reviewed: Yes General: Well nourished, Well developed, No Acute Distress Head: Normocephalic, Atraumatic Eyes: Perrl, EOMI. Negative for: Pale conjunctiva ENT: Moist mucous membranes, No rhinorrhea Neck: Supple, Nontender Cardiovascular: Regular rate, Regular rhythm, No murmurs Respiratory: No distress, CTA bilaterally, Chest nontender Abdomen: Soft, Nontender, Nondistended, Normal bowel sounds Rectal: - - Small amount of blood noticed at the rectum but no active bleeding. Sutures in place from recent surgery. Back: Nontender, Normal Inspection Extremities: Nontender, No edema Skin: Normal color, No rash Neurological: Alert, Oriented x3, Cranial nerves II-XII grossly intact, Normal Strength, Normal Sensation Psychological: Normal affect, Normal Mood Diagnostic/Tx/Re-eval Laboratory Data 08/28/20 08/28/20 08/28/20 19:48 19:48 19:48 WBC 12.7 H RBC 3.58 L Hgb 10.9 L Hct 30.1 L MCV 84.1 MCH 30.4 MCHC 36.2 H RDW Std Deviation 39.7 RDW Coeff of Marga 13.2 Plt Count 266 MPV 9.8 Immature Gran % (Auto) 0.500 Neut % (Auto) 83.1 H Lymph % (Auto) 7.7 L Angelina % (Auto) 7.8 Eos % (Auto) 0.7 Baso % (Auto) 0.2 Absolute Neuts (auto) 10.6 H Absolute Lymphs (auto) 0.98 Nucleated RBC % 0 PT 12.7 INR 1.0 APTT 24.0 L Sodium 122 L Potassium 3.8 Chloride 90 L Carbon Dioxide 26.0 Anion Gap 6 BUN 11 Creatinine 0.63 Estim Creat Clear Calc 42.50 Est GFR (MDRD) Af Amer 117 Est GFR (MDRD) Non-Af 97 BUN/Creatinine Ratio 17.4 Glucose 116 H Calcium 8.9 Total Bilirubin 0.80 AST 33 ALT 45 Alkaline Phosphatase 89 Total Protein 7.4 Albumin 4.1 Globulin 3.3 Albumin/Globulin Ratio 1.2 - Medical Decision Making Evaluated for bright red blood per rectum. She is 10 days status post hemorrhoidectomy. Patient is having large volume episodes of hematochezia and has 2 episodes in the ER. She is hemodynamically stable. She is mildly anemic I do not have a baseline to compare to. Patient is evaluated by her surgeon, Dr. Gallegos, who will admit the patient for further evaluation and serial H&H's. Patient might require endoscopy tomorrow or revision. Type and cross is sent. Patient does not require transfusion at this time. Patient agreeable plan of care. ED Disposition - Plan for ED Patient: Disposition: Acute Care Hospital [facility] Diagnosis: Bleeding hemorrhoid Referrals: Monika Venegas MD [Primary Care Provider] -
[2020-08-28 20:27] VITALS: BP 167/52; PULSE 62; RESP 16; TEMP 37; O2SAT 99
[2020-08-28] MEDS: 0.9% Normal Saline 1,000 ML 100 ML IV (20:29)
[2020-08-28 21:16] VITALS: BMI 27.1
[2020-08-28 21:24] VITALS: BP 124/45; PULSE 60; RESP 18; TEMP 36.7; O2SAT 98
[2020-08-28 21:44] VITALS: BMI 27.2
[2020-08-29] VITALS (11 sets, daily range): BP systolic 114–164; BP diastolic 41–63; PULSE 62–99; RESP 12–18; TEMP 36.8–36.9; O2SAT 96–100; BMI 27.1; BMI 27.2
[2020-08-29 00:51] LABS: Hematocrit 23.6 % (37-47); Hemoglobin 8.3 g/dL (12.0-15.0)
[2020-08-29] MEDS: Ondansetron 4 MG/2 ML Vial IV (02:49)
[2020-08-29] MEDS: 0.9% Saline Lock 10 ML Syringe IV ×2 (02:49→05:59)
[2020-08-29 05:40] LABS: Absolute Lymphocyte Count 0.69 X10^3/uL (0.83-4.51); Absolute Neutrophil Count 10.2 X10^3/uL (2.0-7.7); Basophil# 0.02 X10^3/uL; Basophil% 0.2 % (0-1); Eosinophil# 0.01 X10^3/uL; Eosinophils% 0.1 % (0-5); Hematocrit 22.9 % (37-47); Hemoglobin 8.1 g/dL (12.0-15.0); Lymphocyte # 0.69 X10^3/ul (4.0); Lymphocyte % 5.9 % (19-41); Mean Corp Hgb Conc 35.4 g/dL (32-36); Mean Corpuscular Hgb 30.1 pg (27.0-32.0); Mean Corpuscular Volume 85.1 fL (81-99); Mean Platelet Vol. 10.1 fl (6.2-12.0); Monocyte# 0.65 X10^3/uL; Monocyte% 5.6 % (0-10); NRBC Flagged by Analyzer 0 % (0-5); Neutrophil # 10.17 X10^3/uL (2.7-7.7); Neutrophil % 87.7 % (47-70); Platelet Count 236 K/mm3 (150-450); RBC Distribution Width CV 13.1 % (11.6-14.6); RBC Distribution Width SD 39.8 fl (35.1-43.9); Red Blood Count 2.69 M/mm3 (4.2-5.4); White Blood Count 11.6 K/mm3 (4.4-11.0)
[2020-08-29] MEDS: 0.9% Normal Saline 1,000 ML 100 ML IV ×2 (05:58→14:30)
[2020-08-29] MEDS: Pantoprazole Sodium 40 MG Tablet PO (07:55)
--- NOTE | 2020-08-29 10:20 | EKG12_ITS ---
Test Reason : PRE OP Blood Pressure : / mmHG Vent. Rate : 065 BPM Atrial Rate : 065 BPM P-R Int : 146 ms QRS Dur : 078 ms QT Int : 440 ms P-R-T Axes : 054 030 047 degrees QTc Int : 457 ms Sinus rhythm with Premature atrial complexes Otherwise normal ECG When compared with ECG of 21-AUG-2003 09:11, Premature atrial complexes are now Present QT has lengthened Confirmed by LOLIS DEL VALLE, BROCK ([id number]), index editor ARETHA GARCIA ([id number]) on 09/02/2020 10:56:53 AM Referred By: AMBER Confirmed By:BROCK DANIELLE MD
--- NOTE | 2020-08-29 10:34 | PCM.PN.SRG ---
Patient Problems: Active and Suspected Problems (Last Updated 08/12/20 @ 14:33 by Breana Flynn) Rectal bleeding (Acute) Subjective: The patient had a few episodes of bleeding before midnight. Since midnight she has had no blood per rectum. - Physical Exam Vitals/I&O's: Vital Signs Temp Pulse Resp BP Pulse Ox 98.4 F 76 16 137/51 H 100 08/29/20 07:25 08/29/20 07:38 08/29/20 07:38 08/29/20 07:25 08/29/20 07:38 Oxygen Delivery Method Room Air Weight: 123 lb 7.342 oz Body Mass Index (BMI) 27.1 Intake and Output for Last 24 Hours 08/27/20 08/28/20 08/29/20 23:59 23:59 23:59 Intake Total 1228.33 / 1228.33 Balance 1228.33 / 1228.33 General: Alert, Oriented x3 Lungs: Normal air movement Cardiovascular: Regular Rhythm Abdomen: Soft, Non Tender, Non-Distended Microbiology Past 72 Hours 08/28/20 20:28 Mucosa - Nose SARS-CoV-2 Antigen (Rapid) - Final Laboratory Results 08/28/20 19:48: WBC 12.7 H, RBC 3.58 L, Hgb 10.9 L, Hct 30.1 L, MCV 84.1, MCH 30.4, MCHC 36.2 H, RDW Std Deviation 39.7, RDW Coeff of Marga 13.2, Plt Count 266, MPV 9.8, Immature Gran % (Auto) 0.500, Neut % (Auto) 83.1 H, Lymph % (Auto) 7.7 L, Gonzales % (Auto) 7.8, Eos % (Auto) 0.7, Baso % (Auto) 0.2, Absolute Neuts (auto) 10.6 H, Absolute Lymphs (auto) 0.98, Nucleated RBC % 0 08/28/20 19:48: PT 12.7, INR 1.0, APTT 24.0 L 08/28/20 19:48: Sodium 122 L, Potassium 3.8, Chloride 90 L, Carbon Dioxide 26.0, Anion Gap 6, BUN 11, Creatinine 0.63, Estim Creat Clear Calc 42.50, Est GFR (MDRD) Af Amer 117, Est GFR (MDRD) Non-Af 97, BUN/Creatinine Ratio 17.4, Glucose 116 H, Calcium 8.9, Total Bilirubin 0.80, AST 33, ALT 45, Alkaline Phosphatase 89, Total Protein 7.4, Albumin 4.1, Globulin 3.3, Albumin/Globulin Ratio 1.2 08/28/20 19:48: Blood Type AB NEGATIVE, Antibody Screen NEGATIVE 08/29/20 00:45: Hgb 8.3 L, Hct 23.6 L 08/29/20 05:12: WBC 11.6 H, RBC 2.69 L, Hgb 8.1 L, Hct 22.9 L, MCV 85.1, MCH 30.1, MCHC 35.4, RDW Std Deviation 39.8, RDW Coeff of Marga 13.1, Plt Count 236, MPV 10.1, Immature Gran % (Auto) 0.500, Neut % (Auto) 87.7 H, Lymph % (Auto) 5.9 L, Gonzales % (Auto) 5.6, Eos % (Auto) 0.1, Baso % (Auto) 0.2, Absolute Neuts (auto) 10.2 H, Absolute Lymphs (auto) 0.69 L, Nucleated RBC % 0 Current Medications Acetaminophen (Acetaminophen 325 Mg Tablet) 650 mg PO Q4H PRN PRN PRN Reason: PAIN 1-10/F Sodium Chloride () 1,000 mls @ 100 mls/hr IV .Q10H TISHA Last Admin: 08/29/20 05:58 Dose: 100 mls/hr Documented by: Ondansetron HCl (Ondansetron 4 Mg/2 Ml Vial) 4 mg IV Q6H PRN PRN PRN Reason: NAUSEA Last Admin: 08/29/20 02:49 Dose: 4 mg Documented by: Pantoprazole Sodium (Pantoprazole Sodium 40 Mg Tablet) 40 mg PO DAILY TISHA Last Admin: 08/29/20 07:55 Dose: 40 mg Documented by: Sodium Chloride (0.9% Saline Lock 10 Ml Syringe) 10 - 40 ml IV UD PRN PRN Reason: SALINE FLUSH Last Admin: 08/29/20 05:59 Dose: 10 ml Documented by: Medical Necessity - Tobacco Use Smoking Status: Never smoker Assessment/Plan All Active Problems (Last Updated 08/12/20 @ 14:33 by Breana Flynn) Hemorrhoids (Acute) Rectal bleeding (Acute) 74-year-old female with rectal bleeding status post hemorrhoidectomy 1. The patient reports no bleeding since midnight. Her hemoglobin at 1 AM was 8.3 and this morning is 8.1. I discussed observation versus exploration with her. The patient is very anxious and I believe that she has a fair chance of rebleeding. I discussed exam under anesthesia with her. I discussed the risks of worsening bleeding or infection. The patient understands the risks and would like exam under anesthesia. I will perform exam under anesthesia and stop any bleeding necessary and oversew the hemorrhoidectomy sites. Damien Gallegos MD Pager: [facility] [address] [place] [address] [address] [place] [address] Office:
--- NOTE | 2020-08-29 10:43 | CASEMGMT ---
MICAH LEY Assessment: Face to Face with pt for initial transition planning/care coordination assessment. RN CM introduced self and role at [facility], pt voices understanding and consents to assessment. Pt is A/O x4 and answers all questions appropriately at this time. Pt lying in bed with dtr at bedside. Care providers, pharmacy, and demographics verified/updated. Admitting Dx: Rectal Bleeding PCP: Dr. Venegas Specialists: Dr. Gallegos, surgeon Preferred Pharmacy: [facility] Retail Insurance: [employer], Commercial Prescription Benefit: Induction Manager LW/HPOA: Pt has LW and DPOA on file at [facility]. Pt DPOA is her dtr Alexsandra Grullon. LNOK: Dtr, Alexsandra Grullon Living Arrangements: Pt lives alone in a single story house with 4 steps to enter with a rail. Pt states she is I in ADL's and denies concerns at home. Transportation: Pt states she drives self. Dtr is available if needed for transportation. No concerns regarding this. DME/HHC/SNF: Pt states she has a cane and grab bar in the shower. Pt denies previous HHC and SNF stay. Pt states no concerns with going home at time of dc. Dtr states she will stay the night with the pt the night after dc as she did when she had her surgery a couple of weeks ago. Pt states no further concerns/needs. CM to follow. Advised pt to ask CM if any further question/concerns/needs arise, voices understanding. Pt Goal: Home Plan: Home with family support, fu plans in place.
[2020-08-29] MEDS: Bupivacaine Mpf 0.5% 30 ML VIAL (12:44)
[2020-08-29] MEDS: Dibucaine 30 GM Tube 1 APPLIC (13:20)
--- NOTE | 2020-08-29 14:36 | OP.PCM_ITS ---
Problem List (1) Rectal bleeding Status: Acute Report of Operation Date of Procedure: 08/29/20 Pre-Operative Diagnosis: Recurrent rectal bleeding 10 days after hemorrhoidectomy Post-Operative Diagnosis: Same Surgery/Procedure Performed:: Rectal exam under anesthesia Description of Procedure: The patient was brought back to the operating room and general anesthesia was induced. The patient was placed in prone jackknife position and the buttocks were taped open. The perineal area was prepped and draped in usual sterile fashion. A well-lubricated finger was used to perform a rectal exam and a well- lubricated speculum was placed into the rectum. The previous hemorrhoidal columns were inspected and there was no active bleeding only a slow ooze. The base of each hemorrhoidal column was sutured using a 2-0 Vicryl suture and the mucosa was once again reapproximated using a combination of interrupted 2-0 Vicryl sutures and running 2-0 chromic suture. Both of these areas had good hemostasis at the end of the case. A dibucaine soaked Gelfoam pad was rolled and placed in the rectal vault. Local anesthesia was injected around the anal area. Patient was awoken and taken to the PACU in stable condition. - Admit VTE Documentation VTE Mechan Device Prophylaxis: SCD's
--- NOTE | 2020-08-29 14:38 | DCINST_ITS ---
Discharge Diet: No Restrictions Discharge Activity: Return to Normal Activity, May Not Drive - while you are taking narcotic pain medications. Do not drive, work with heavy equipment or sign legal documents for 24 hours after your surgery., May Shower, May Take a Tub Bath Additional Activity Instructions:: Be aware that pain medications may cause nausea. You should typically eat light foods as you take your pain medications. Pain medications may also cause constipation, if you have difficulty with this please discuss with your doctor. Call your doctor if your incision/area has: Continuous Slow Oozing, Sudden Increased Bleeding, Increased Pain/ Swelling, Increased Redness Call your doctor if you observe: Fever of 101 or Higher Additional Dressing/Incision Instructions:: Leave the operative bandage on for 2 days. If a local anesthetic plug was placed in the anal area, try not to expel for [address]ucaine ointment on the perianal area as needed. Sitz baths twice daily and after bowel movements. Allergies/Adverse Reactions: Allergies No Known Allergies Allergy (Verified 08/28/20 18:56) Medications to take at Discharge Atenolol [Tenormin (beta bright)] 50 mg PO DAILY 07/05/18 Atorvastatin Calcium [Lipitor] 10 mg PO QHS 07/05/18 Hydrochlorothiazide [Hctz] 25 mg PO DAILY 07/05/18 multivitamin 1 tab PO DAILY 08/12/20 Ascorbic Acid/Elderberry Fruit [Elderberry-Vit C 50-100 mg Chw] 1 ea PO DAILY 08/14/20 Calcium Carbonate/Vitamin D3 [Calcium 500 mg-Vit D3 600 Unit] 2 ea PO DAILY 08/14/20 Cholecalciferol (Vitamin D3) [Vitamin D3] 125 mcg PO DAILY 08/14/20 Cyanocobalamin (Vitamin B-12) [Vitamin B-12] 1,000 mcg PO DAILY 08/14/20 Glucosam/[place]amie-Msm1/C/Javier/Bosw [Osteo Bi-Flex Caplet] 2 tab PO DAILY 08/14/20 Docusate Sodium [Colace] 100 mg PO BID 08/28/20 Primary Care Physician: Monika Venegas MD [Primary Care Provider] - Test Results: Test results from this visit will be discussed in further detail at your follow- up appointment, if applicable. Please Follow Up With: Damien Gallegos MD When: Follow up Tuesday as originally scheduled
[2020-08-29] MEDS: Lubricating Jelly 60 GM Tube 30 GM TOPICAL (15:19)
[2020-08-29] MEDS: Acetaminophen 325 MG Tablet 650 MG PO (17:26)
== END 2020-08-29 17:28 | disposition home or self-care (01) ==
LOC: ED 20:19 → MS3 20:23
PROVIDERS: Admitting Provider Surgery; Emergency Provider Emergency Medicine; PCP Family Medicine; Visit Provider Surgery
PROC: (CPT 45990; principal; 2020-08-29 12:45)
DX: K62.5 Hemorrhage of anus and rectum (principal); I10 Essential (primary) hypertension; K64.9 Unspecified hemorrhoids; E78.5 Hyperlipidemia, unspecified; Z79.899 Other long term (current) drug therapy; Z86.718 Personal history of other venous thrombosis and embolism
CPT/HCPCS: 45990; 36415; 80053; 85014; 85018; 85025; 85610; 85730; 86850; 86900; 86901; 87426; 93005; 96361; 96374; 99218; 99284; J7030; A4216; G0378; J2405

== ENCOUNTER → 2020-09-12 09:56 | Outpatient (CLI) | payer MEDICARE, OTHER, SELFPAY ==
[2020-08-29 11:19] VITALS: BMI 27.1
[2020-09-12 12:20] LABS: Absolute Lymphocyte Count 0.76 X10^3/uL (0.83-4.51); Absolute Neutrophil Count 8.3 X10^3/uL (2.0-7.7); Basophil# 0.04 X10^3/uL; Basophil% 0.4 % (0-1); Eosinophil# 0.11 X10^3/uL; Eosinophils% 1.1 % (0-5); Hematocrit 30.7 % (37-47); Hemoglobin 9.8 g/dL (12.0-15.0); Lymphocyte # 0.76 X10^3/ul (4.0); Lymphocyte % 7.6 % (19-41); Mean Corp Hgb Conc 31.9 g/dL (32-36); Mean Corpuscular Hgb 28.1 pg (27.0-32.0); Mean Platelet Vol. 9.6 fl (6.2-12.0); Monocyte# 0.71 X10^3/uL; Monocyte% 7.1 % (0-10); NRBC Flagged by Analyzer 0 % (0-5); Neutrophil # 8.31 X10^3/uL (2.7-7.7); Neutrophil % 83.4 % (47-70); Platelet Count 423 K/mm3 (150-450); RBC Distribution Width CV 14.2 % (11.6-14.6); RBC Distribution Width SD 45.2 fl (35.1-43.9); Red Blood Count 3.49 M/mm3 (4.2-5.4)
[2020-09-12 12:43] LABS: Anion Gap 6 (5-15); BUN 15 mg/dL (7-18); BUN/Creat Ratio 21.1 RATIO (10-20); Calcium,Total 9.4 mg/dL (8.5-10.1); Chloride 97 mmol/L (98-107); Creatinine, Serum 0.71 mg/dL (0.55-1.02); EST Glomerular Filtration Rate 85 mL/min (>60); Est Glom Filt Rate - Afr Amer 102 mL/min (>60); Glucose 163 mg/dL (74-106); Potassium 3.6 mmol/L (3.5-5.1); Sodium Level 131 mmol/L (136-145)
== END ==
PROVIDERS: PCP Family Medicine; Referring Provider Family Medicine; Visit Provider Family Medicine
DX: I10 Essential (primary) hypertension (principal); K64.9 Unspecified hemorrhoids
CPT/HCPCS: 36415; 80048; 85025

== ENCOUNTER → 2020-09-17 08:37 | Outpatient (CLI) | payer MEDICARE, OTHER, SELFPAY ==
[2020-08-12 14:34] VITALS: BMI 27.8
[2020-08-29 11:19] VITALS: BMI 27.1
--- NOTE | 2020-09-17 08:40 | BI_ITS ---
MAMMOGRAPHY - BILATERAL SCREENING REASON FOR EXAM: Female, 74 years old. Routine annual screening examination. PERTINENT HISTORY: Non-contributory. History of prior bilateral breast reduction surgery. TECHNIQUE: Digital bilateral breast hamzah (3D mammographic acquisition) in the CC and MLO projections. 2-D mediolateral oblique (MLO) and craniocaudad (CC) views of both breasts were obtained. CAD: Full Field Digital Mammography with Computer Added Detection was performed. COMPARISON: Comparison is made with prior examination dated 07/10/2019 and 05/27/2016. FINDINGS: Breast Composition: The breasts are heterogeneously dense, which may obscure small masses. There are no dominant masses or suspicious calcifications. Stable benign-appearing bilateral axillary lymph nodes. Stable densely calcified nodules in the retroareolar region of the breasts. No other significant abnormalities are identified. There has been no significant change since the prior study. BI/SCREENING MAMM (CAD), BILAT IMPRESSION: Stable bilateral screening mammogram. Yearly follow-up mammogram recommended. (A) ASSESSMENT CATEGORY: BIRADS Category 2: Benign. A letter regarding these results will be sent to the patient by the facility within 30 days. Approximately 10% of breast cancers are not detected by mammography. A normal mammogram should not delay biopsy of a clinically suspicious abnormality. [id number] Electronically Signed: Eugenio Bradshaw MD at 10:20 EDT , Service support ,
== END ==
PROVIDERS: PCP Family Medicine; Referring Provider Family Medicine; Visit Provider Family Medicine
DX: Z00.00 Encounter for general adult medical examination without abnormal findings (principal); Z12.31 Encounter for screening mammogram for malignant neoplasm of breast
CPT/HCPCS: 77067

== ENCOUNTER → 2021-02-18 14:44 | Outpatient (CLI) | payer MEDICARE, OTHER, SELFPAY ==
[2021-02-18 17:42] LABS: Absolute Lymphocyte Count 1.21 X10^3/uL (0.83-4.51); Absolute Neutrophil Count 6.8 X10^3/uL (2.0-7.7); Basophil# 0.04 X10^3/uL; Basophil% 0.5 % (0-1); Eosinophil# 0.08 X10^3/uL; Eosinophils% 0.9 % (0-5); Hematocrit 36.1 % (37-47); Hemoglobin 12.2 g/dL (12.0-15.0); Lymphocyte # 1.21 X10^3/ul (0.83-4.51); Lymphocyte % 13.6 % (19-41); Mean Corp Hgb Conc 33.8 g/dL (32-36); Mean Corpuscular Hgb 29.9 pg (27.0-32.0); Mean Corpuscular Volume 88.5 fL (81-99); Mean Platelet Vol. 10.6 fl (6.2-12.0); Monocyte# 0.71 X10^3/uL; NRBC Flagged by Analyzer 0 % (0-5); Neutrophil % 76.5 % (47-70); Platelet Count 270 K/mm3 (150-450); RBC Distribution Width CV 13.3 % (11.6-14.6); RBC Distribution Width SD 43.2 fl (35.1-43.9); Red Blood Count 4.08 M/mm3 (4.2-5.4); White Blood Count 8.9 K/mm3 (4.4-11.0)
[2021-02-18 18:00] LABS: AST(SGOT) 18 U/L (15-37); Alanine Aminotransfer ALT/SGPT 28 U/L (13-56); Anion Gap 6 (5-15); BUN 15 mg/dL (7-18); BUN/Creat Ratio 20.1 RATIO (10-20); Calcium,Total 9.6 mg/dL (8.5-10.1); Chloride 99 mmol/L (98-107); Cholesterol 164 mg/dL (200); Creatinine, Serum 0.74 mg/dL (0.55-1.02); EST Glomerular Filtration Rate 80 mL/min (>60); Est Glom Filt Rate - Afr Amer 97 mL/min (>60); Glucose 103 mg/dL (74-106); High Density Lipoprotein 59 mg/dL; Potassium 3.6 mmol/L (3.5-5.1); Sodium Level 134 mmol/L (136-145); Triglycerides 137 mg/dL; Very Low Density Lipoprotein 27 mg/dL (5-40)
== END ==
PROVIDERS: PCP Family Medicine; Referring Provider Family Medicine; Visit Provider Family Medicine
DX: I10 Essential (primary) hypertension (principal); K62.5 Hemorrhage of anus and rectum; E78.5 Hyperlipidemia, unspecified
CPT/HCPCS: 36415; 80048; 80061; 84450; 84460; 85025

== ENCOUNTER 2021-06-11 13:35 | Outpatient (CLI) | payer MEDICARE, OTHER, SELFPAY ==
--- NOTE | 2021-06-11 13:49 | ECHOD_ITS ---
Reason For Study: MURMUR Procedure This was a 2D Doppler, Color Flow transthoracic echocardiogram. Exam performed in department. Left Ventricle Normal LV size. Left ventricular systolic function is normal. The estimated ejection fraction is 60 %. Stage 1 diastolic dysfunction. No regional wall motion abnormalities noted. Right Ventricle Normal RV size. Normal systolic function. Atria The left atrium is mildly enlarged. Normal right atrium. Mitral Valve There is mild to moderate mitral annular calcification. Mild (1+) eccentric mitral valve insufficiency. Tricuspid Valve Normal tricuspid valve. Mild (1+) tricuspid valve insufficiency. Pulmonary artery systolic pressure is 36 mmHg. Aortic Valve Trisinus/trileaflet aortic valve. Mild (1+) aortic valve insufficiency. Pulmonic Valve Normal pulmonic valve. Great Vessels Normal aortic root. The pulmonary artery is normal size. Normal inferior vena cava. Pericardium/Pleural No pericardial effusion. MMode/2D Measurements & Calculations LVIDd: 4.2 cm IVSd: 0.97 cm LVOT diam: 2.0 cm LVIDs: 2.5 cm LVPWd: 1.0 cm LVOT area: 3.2 cm2 RVDd: 2.9 cm FS: 39.2 % Ao root diam: 2.7 cm LAV(MOD-bp): 42.7 ml LVAd ap4: 20.8 cm2 LAV(MOD-bp) Indexed: 29.9 ml/m2 LVLd ap4: 6.1 cm LAV(MOD-sp2): 40.0 ml EDV(MOD-sp4): 57.1 ml LAV(MOD-sp4): 38.0 ml EDV(sp4-el): 60.7 ml LVAs ap4: 11.1 cm2 LVLs ap4: 5.3 cm ESV(MOD-sp4): 19.6 ml ESV(sp4-el): 19.6 ml EF(MOD-sp4): 65.7 % EF(sp4-el): 67.6 % SV(MOD-sp4): 37.6 ml SV(sp4-el): 41.1 ml Aortic Valve Planimetry: 1.8 cm2 LA A4 area: 15.4 cm2 LA dimension(2D): 3.4 cm RA A4 area: 10.5 cm2 Time Measurements MV dec time: 0.22 sec Doppler Measurements & Calculations MV E max migel: 120.9 cm/sec Lat Peak E' Migel: 6.6 cm/sec Med Peak E' Migel: 4.9 cm/sec MV A max migel: 125.7 cm/sec E/E' lat: 18.5 E/E' med: 24.6 MV E/A: 0.96 Ao V2 max: 212.5 cm/sec AI max migel: 392.0 cm/sec LV V1 max: 113.1 cm/sec Ao max P.1 mmHg AI max P.5 mmHg LV V1 max P.1 mmHg JULIUS(V,D): 1.7 cm2 AI dec slope: 220.9 cm/sec2 AI P1/2t: 519.8 msec PA V2 max: 111.0 cm/sec TR max migel: 283.2 cm/sec TR max P.1 mmHg ECHO/Echo Complete Interpretation Summary Normal LV size. Left ventricular systolic function is normal. The estimated ejection fraction is 60 %. Mild (1+) aortic valve insufficiency. Pulmonary artery systolic pressure is 36 mmHg. Stage 1 diastolic dysfunction. Ordering Physician: Jagdish Noyola Referring Physician: JOSETTE SANTOS Performed By: Liz Palma RDCS
== END 2021-06-11 23:59 | disposition short-term general hospital (02) ==
LOC: CVS 13:36
PROVIDERS: PCP Family Medicine; Referring Provider Family Medicine; Visit Provider Family Medicine
DX: R01.1 Cardiac murmur, unspecified (principal)
CPT/HCPCS: 93306

== ENCOUNTER 2021-07-31 16:58 | Emergency (ER) | payer MEDICARE, OTHER, SELFPAY ==
[2021-07-31 16:59] VITALS: BP 201/59; PULSE 58; RESP 16; TEMP 35.7; O2SAT 100; BMI 26.4
--- NOTE | 2021-07-31 17:03 | RAD_ITS ---
STUDY: XR Shoulder Min 2 Views REASON FOR EXAM: Female, 75 years old. PAIN TECHNIQUE: XR Shoulder Min 2 Views COMPARISON: None. FINDINGS: Normal glenohumeral articulation. Normal acromioclavicular joint. Normal acromion. Normal humeral head and visualized proximal humerus. The soft tissue structures are unremarkable. Normal visualized pulmonary apex. RAD/Shoulder min 2 Views IMPRESSION: There are no acute findings of the shoulder. Electronically Signed: Mohamud Larose MD at 18:12 EST ,
--- NOTE | 2021-07-31 19:19 | ED.RN ---
Jovanna states she is not sure if workmans' comp because she was not on the clock. Discussed with patient and she states she has a number to call for [employer] but did not bring it with her and discussed with patient so she is aware if she needs it under workmans comp, needs to let us know to do the proper paperwork. For now, she is filing under private insurance.
--- NOTE | 2021-07-31 19:23 | ED.RN ---
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 Daughter is going to help her, per registration.
[2021-07-31 21:18] VITALS: BP 170/54; PULSE 67; RESP 16; O2SAT 99
--- NOTE | 2021-07-31 21:22 | EDS_ITS ---
HPI HPI - Fall History of Present Illness Chief Complaint: Fall Detail of Chief Complaint: Complaint left shoulder discomfort. Informant: patient and family Occured/Mechanism Occurred: Today and Hours Pain/Injury Pain Location: upper extremity Quality of Pain: Dull Current Severity: Mild Maximum Severity: Mild Associated Symptoms Associated Symptoms: Negative for Parasthesias, Weakness, Loss of function, Inability to ambulate, Loss of consciousness and Amnesia Narrative Narrative: 75-year-old female history of hypertension. Was getting out of her car today slipped on the ice fell landing awkwardly on her left shoulder left upper chest. Complaining of discomfort. This occurred several hours ago. She denies any LOC. She did not hit her head. She denies any neck pain or other injuries. She is on no blood thinners. She has no prior shoulder history or surgery. She is right-hand dominant. Prior similar symptoms: No Recent Illness/Hospitalization: No PFSH PFS Medical History Hemorrhoids High cholesterol HTN (hypertension) Home Medications atenolol 50 mg PO DAILY 07/05/18 [History Last Taken 08/28/20] atorvastatin 10 mg PO QHS 07/05/18 [History Last Taken 08/27/20] hydrochlorothiazide 25 mg PO DAILY 07/05/18 [History Last Taken 08/28/20] multivitamin 1 tablet PO DAILY 08/12/20 [History Last Taken 08/28/20] ascorbic acid-elderberry fruit 1 each PO DAILY 08/14/20 [History Last Taken 08/27/20] calcium carbonate-vitamin D3 2 each PO DAILY 08/14/20 [History Last Taken 08/28/20] cholecalciferol (vitamin D3) 125 mcg PO DAILY 08/14/20 [History Last Taken 08/28/20] cyanocobalamin (vitamin B-12) 1,000 mcg PO DAILY 08/14/20 [History Last Taken 08/27/20] Allergy/AdvReac Type Severity Reaction Status Date / Time No Known Allergies Allergy Verified 07/31/21 17:01 Family History Father CVA (cerebral vascular accident) Heart disease Mother Diabetes Surgical History S/P bilateral breast reduction S/P carpal tunnel release S/P hysterectomy Status post hemorrhoidectomy (~08/19/20) Social History Smoking Status: Never smoker alcohol intake: never ROS ROS ED ROS Narrative Denies recent illness. Review of Systems ROS Unobtainable: Denies due to encephalopathy Constitutional Constitutional ED: Denies fever(s) Eyes Eyes: Denies change in vision ENT ENT ED: Denies ear pain Cardiovascular Cardiovascular: Denies chest pain Respiratory/Chest Respiratory/Chest: Denies dyspnea Gastrointestinal Gastrointestinal: Denies abdominal pain Genitourinary Genitourinary ED: Denies dysuria Musculoskeletal Musculoskeletal: Denies myalgias Integumentary Denies rash Neurologic Neurologic: Denies headache(s) Psychiatric Psychiatric: Denies depression Endocrine Endocrinology: Denies polyuria Hematologic/Lymphatic Hematologic/Lymphatic: Denies easy bruising Allergic/Immunologic Allergic/Immunologic ED: Denies urticaria EXAM Physical Exam Narrative Exam Narrative: 75-year-old female no acute distress. Vital signs stable afebrile. Pulse ox 9% on room air no hypoxia. H EENT exam atraumatic. Pupils round reactive light. No trauma to the scalp or face nor any tenderness. C- spine nontender. Trachea midline. Lungs clear to auscultation bilaterally. Ribs nontender. Heart regular rate and rhythm no murmur. Abdomen soft nontender. Pelvic girdle intact. Extremities moves all 4. Neurovascular intact. No deformity. Normal range of motion. 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 Dorsi plantarflexion intact. No shortening or rotation of the lower extremities. Back nontender. Neurologic exam normal. Her left shoulder there is mild tenderness to the clavicle but no deformity. Const Vital Signs: 07/31/21 16:59 07/31/21 19:12 07/31/21 21:18 Temperature 96.3 F L Temperature Source Temporal Pulse Rate 58 L 67 Respiratory Rate 16 16 Respiratory Effort Normal Blood Pressure 201/59 H 170/54 H Blood Pressure Mean 106 92 Pulse Ox 100 99 Oxygen Delivery Method Room Air Room Air Positive well nourished and well developed; Negative for obese, cachectic, contractures or unkempt General Appearance ED: well developed and NAD; Negative for unkempt, cachectic or contractures Nutritional Appearance: Negative for cachectic or obese HEENT Reports normocephalic atraumatic Eyes PERRL and EOMs intact bilaterally General Eye ED: Negative for pale conjunctiva or scleral icterus Neck full ROM, no lymphadenopathy and supple General: Negative for tenderness Chest Wall inspection of chest normal; Negative for palpation of chest normal Chest Narrative: Mild tenderness to left clavicle. No deformity. Resp normal respiratory effort, no retractions and clear to auscultation bilaterally Auscultation: Negative for rales, rhonchi or wheezes Cardio regular rate, regular rhythm, S1 normal heart sound, S2 normal heart sound and no murmurs GI non-tender, non-distended and no masses Auscultation: normoactive bowel sounds Palpation: soft; Negative for guarding Back/Spine no CVA tenderness General Back: Negative for CVA tenderness Cervical Spine: Negative for cervical spine tenderness Thoracic Spine / Upper Back: Negative for thoracic spinal tenderness Extremity normal to inspection, full ROM and normal capillary refill Neuro oriented x3, moves all extremities and no focal motor deficits Catina Coma Scale: document GCS findings Spontaneous Obeys Commands Oriented 15 Sensorium / Orientation: alert, oriented to person, oriented to place and oriented to time; Negative for orientation impaired, confused, lethargic or stuporous Psych mental status grossly normal and thought process normal Appearance: Negative for unkempt Attitude: No agitated Mood & Affect: Negative for depressed, anxious or tearful Skin Lesions: no lesions and No lesion noted Rashes: no rashes and No rashes noted Trauma: Negative for abrasion or laceration MDM MDM MDM Narrative Medical decision making narrative: 75-year-old female fall. Exam benign. X-ray of the left shoulder was obtained shows no fracture. No dislocation. And the clavicle is unremarkable. Radiography Diagnostic Testing: Clinical Impression(s) from Imaging Studies Shoulder X-Ray 07/31/21 17:03 IMPRESSION: There are no acute findings of the shoulder. Electronically Signed: Mohamud Larose MD at 18:12 EST Reading Location ID and State: [facility] / [place] , Service support , Left shoulder x-ray interpreted by myself and radiologist shows no acute abnormality. No fracture or dislocation. I did go over the films with the patient and family. Discharge Plan Triage Chief Complaint: Fall ED Provider: Trev Luna Dx/Rx/DC Orders Clinical Impression: Fall, Contusion of left shoulder Instructions: ED Contusion, Upper Extremity Prescriptions: No Action multivitamin Tablet 1 tablet PO DAILY RF: 0 hydrochlorothiazide 25 MG tablet 25 mg PO DAILY RF: 0 atenolol 50 tablet 50 mg PO DAILY RF: 0 atorvastatin 10 MG tablet 10 mg PO QHS RF: 0 calcium carbonate-vitamin D3 1 EACH tablet 2 each PO DAILY RF: 0 cyanocobalamin (vitamin B-12) 500 MCG tablet,chewable 1,000 mcg PO DAILY RF: 0 ascorbic acid-elderberry fruit 1 EACH tablet,chewable 1 each PO DAILY RF: 0 cholecalciferol (vitamin D3) 125 MCG capsule 125 mcg PO DAILY RF: 0 Primary Care Provider: Monika Venegas Referrals: Monika Venegas MD [Primary Care Provider] - 1 Week if not improving Activity Restrictions/Additional Instructions: X-ray of your left shoulder looks good. No broken bones or dislocations. Ice to shoulder and collarbone. Alternate Tylenol Motrin for pain. This should progressively improve. Tomorrow you will be sore and that should start getting better. If in 1 to 2 weeks this is not greatly improved you need to have it reevaluated. Disposition Disposition: Home, Self Care
--- NOTE | 2021-08-03 14:40 | CASEMGMT ---
MICAH LEY ED follow-up: Date of ER visit: 07/31/2021 Presenting ER complaint: fall RN JIL placed call to patient's telephone number listed on demographics and patient answered. MICAH LEY introduced self and role at [facility]. Patient continues to report shoulder pain and tenderness, worsened when attempting to lift arm or reach into microwave above the stove. Hurts to twist a cap or open things. Patient states using ice intermittently and alternating Tylenol and Motrin every 4 hours as needed. Patient denies shortness of breath. 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 MICAH LEY encouraged patient rest and to schedule PCP follow-up for continued pain discomfort. Patient voiced understanding. Patient denies questions, needs or concerns and expressed appreciation for follow-up call. MICAH Trejo CM
== END 2021-07-31 21:30 | disposition home or self-care (01) ==
PROVIDERS: Emergency Provider Emergency Medicine; PCP Family Medicine; Visit Provider Emergency Medicine
DX: S40.012A Contusion of left shoulder, initial encounter (principal); I10 Essential (primary) hypertension; E78.00 Pure hypercholesterolemia, unspecified; W00.0XXA Fall on same level due to ice and snow, initial encounter; Y93.9 Activity, unspecified; Y92.9 Unspecified place or not applicable; Z79.899 Other long term (current) drug therapy
CPT/HCPCS: 73030; 99282

== ENCOUNTER → 2022-03-23 | Outpatient (CLI) | payer MEDICARE, OTHER, SELFPAY ==
[2022-03-23 18:17] LABS: AST(SGOT) 17 U/L (15-37); Alanine Aminotransfer ALT/SGPT 26 U/L (13-56); Anion Gap 7 (5-15); BUN 21 mg/dL (7-18); BUN/Creat Ratio 23.6 RATIO (10-20); Calcium,Total 9.4 mg/dL (8.5-10.1); Chloride 101 mmol/L (98-107); Cholesterol 155 mg/dL (200); Creatinine, Serum 0.89 mg/dL (0.55-1.02); EST Glomerular Filtration Rate 65 mL/min (>60); Est Glom Filt Rate - Afr Amer 79 mL/min (>60); Glucose 152 mg/dL (74-106); High Density Lipoprotein 53 mg/dL; Potassium 3.7 mmol/L (3.5-5.1); Sodium Level 135 mmol/L (136-145); Triglycerides 180 mg/dL; Very Low Density Lipoprotein 36 mg/dL (5-40)
== END | disposition home or self-care (01) ==
LOC: MFPLAB 14:48
PROVIDERS: PCP Family Medicine; Referring Provider Family Medicine; Visit Provider Family Medicine
DX: E78.5 Hyperlipidemia, unspecified (principal); I10 Essential (primary) hypertension
CPT/HCPCS: 36415; 80048; 80061; 84450; 84460

== ENCOUNTER → 2022-05-14 | Outpatient (CLI) | payer MEDICARE, OTHER, SELFPAY ==
--- NOTE | 2022-05-14 10:48 | BI_ITS ---
MAMMOGRAPHY - BILATERAL SCREENING REASON FOR EXAM: Female, 76 years old. Routine annual screening examination. PERTINENT HISTORY: Non-contributory. History of prior bilateral breast reduction surgery and bilateral excisional breast biopsies. TECHNIQUE: Digital bilateral breast rhea (3D mammographic acquisition) in the CC and MLO projections. 2-D mediolateral oblique (MLO) and craniocaudad (CC) views of both breasts were obtained. CAD: Full Field Digital Mammography with Computer Added Detection was performed. COMPARISON: Comparison is made with prior study 09/17/2020 and 07/10/2019. FINDINGS: Breast Composition: The breasts are heterogeneously dense, which may obscure small masses. There are no dominant masses or suspicious calcifications. Stable bilateral retroareolar calcifications. Stable benign appearing bilateral axillary lymph nodes. No other significant abnormalities are identified. There has been no significant change since the prior study. BI/SCRN MAMM (CAD)W/RHEA BILAT IMPRESSION: Stable bilateral screening mammogram. Yearly follow-up mammogram recommended. (A) ASSESSMENT CATEGORY: BIRADS Category 2: Benign. A letter regarding these results will be sent to the patient by the facility within 30 days. Approximately 10% of breast cancers are not detected by mammography. A normal mammogram should not delay biopsy of a clinically suspicious abnormality. [id number] Electronically Signed: Eugenio Bradshaw MD at 12:20 EST ,
== END | disposition home or self-care (01) ==
LOC: OPBI 10:47
PROVIDERS: PCP Family Medicine; Referring Provider Family Medicine; Visit Provider Family Medicine
DX: Z12.31 Encounter for screening mammogram for malignant neoplasm of breast (principal)
CPT/HCPCS: 77063; 77067

== ENCOUNTER → 2022-09-21 | Outpatient (CLI) | payer MEDICARE, OTHER, SELFPAY ==
[2022-09-21 13:24] LABS: Microalbumin,Random Urine 7.6 mg/L (NO RANGE EST.); Microalbumin:Creatinine Ratio 21.9 mg/g CRE (<30 mg/g CRE)
[2022-09-21 13:28] LABS: AST(SGOT) 18 U/L (15-37); Alanine Aminotransfer ALT/SGPT 28 U/L (13-56); Anion Gap 5 (5-15); BUN 14 mg/dL (7-18); Calcium,Total 9.3 mg/dL (8.5-10.1); Chloride 101 mmol/L (98-107); Cholesterol 164 mg/dL (200); Creatinine, Serum 0.74 mg/dL (0.55-1.02); EST Glomerular Filtration Rate 81 mL/min (>60); Est Glom Filt Rate - Afr Amer 98 mL/min (>60); Glucose 107 mg/dL (74-106); High Density Lipoprotein 63 mg/dL; Potassium 3.7 mmol/L (3.5-5.1); Sodium Level 132 mmol/L (136-145); Triglycerides 97 mg/dL; Very Low Density Lipoprotein 19 mg/dL (5-40)
== END | disposition home or self-care (01) ==
LOC: MFPLAB 09:55
PROVIDERS: PCP Family Medicine; Visit Provider Family Medicine
DX: I10 Essential (primary) hypertension (principal); E78.5 Hyperlipidemia, unspecified
CPT/HCPCS: 36415; 80048; 80061; 82043; 82570; 84450; 84460

== ENCOUNTER → 2022-09-23 | Outpatient (CLI) | payer MEDICARE, OTHER, SELFPAY ==
--- NOTE | 2022-09-23 06:40 | CT_ITS ---
STUDY: CT BRAIN WITH CONTRAST REASON FOR EXAM: Female, 76 years old. SCALP CYST -- ATTENTION SCALP RADIATION DOSAGE (If Supplied By Facility): CTDIvol = ( 44.99 ) mGy, DLP = ( 796.11 ) mGycm TECHNIQUE: Transaxial CT imaging of the brain was performed post contrast administration. The examination was performed with intravenous administration of IV 50mL Isovue-300. Individualized dose optimization techniques were used for this CT. COMPARISON: None. FINDINGS: There is a 5.2 cm x 3.4 cm x 2.9 cm enhancing mass in the scalp overlying the left frontoparietal bone with the underlying bone destruction. There is evidence of a invasion of the mass lesion into the extra-axial space overlying the left frontoparietal lobes. A neoplastic process should be ruled out. Normal size ventricles and extra-axial spaces for the patient''s age. Normal white matter tracts of the cerebral hemispheres. Normal basal ganglia and thalami. Normal brainstem. Normal cerebellum. There is no intracranial hemorrhage. There are no findings of an acute ischemic infarction. Normal visualized paranasal sinuses.
== END | disposition home or self-care (01) ==
LOC: CT 06:35
PROVIDERS: PCP Family Medicine; Referring Provider Surgery; Visit Provider Surgery
DX: L72.9 Follicular cyst of the skin and subcutaneous tissue, unspecified (principal)
CPT/HCPCS: 70460; Q9967

== ENCOUNTER → 2022-09-30 | Outpatient (CLI) | payer MEDICARE, OTHER, SELFPAY ==
--- NOTE | 2022-09-30 15:48 | CT_ITS ---
STUDY: CT CHEST, ABDOMEN T PELVIS WITH CONTRAST REASON FOR EXAM: Female, 76 years old. skull mass, eval for primary site RADIATION DOSAGE (If Supplied By Facility): CTDIvol = ( 9.68 ) mGy, DLP = ( 733.75 ) mGycm TECHNIQUE: Transaxial imaging was performed following intravenous administration of Oral and amp; IV Gastrografin and amp; 75mL Isovue-370. Individualized dose optimization techniques were used for this CT. COMPARISON: FINDINGS: CHEST The lungs. Minimal bibasilar fibrosis. There is no demonstrated pleural abnormality. Normal heart and pericardium. Normal mediastinum. Normal hilar regions. Normal unenhanced pulmonary arteries. Normal aorta arch and descending thoracic aorta. Normal osseous structures. There is no demonstrated abnormality of the visualized upper abdomen. ABDOMEN The visualized lung bases are unremarkable. The visualized portions of the heart are within normal limits. Normal liver. Normal gallbladder and extrahepatic biliary system. Normal spleen. Normal variant accessory spleen in the splenic hilum. Normal pancreas. Normal bilateral adrenal glands. Normal right kidney. Normal left kidney. Normal visualized stomach. Normal small intestine. Normal colon. The appendix is visualized and appears normal. Normal abdominal aorta. Normal inferior vena cava. Normal retroperitoneum. Normal abdominal wall. Normal osseous structures. PELVIS Normal urinary bladder. The uterus is atrophic or surgically absent. There is a cystic lesion in the left hemipelvis likely ovarian cyst less likely enteric duplication cyst measures 1.5 x 1.5 cm. Normal visualized small intestine. Normal visualized colon. There is no pelvic fluid. There is no pelvic lymphadenopathy or mass lesion. Normal visualized pelvic arteries. Normal abdominal wall. Grade 2 spondylolisthesis L4-5. Moderate degenerative disc disease L3-L5 and to a slightly lesser degree L5-S1. CT/CT Chest, Abd, Pel w/Contrast IMPRESSION: Minimal bibasilar fibrosis. Normal variant accessory spleen. Atrophic uterus versus hysterectomy. Left adnexal cyst less likely enteric duplication cyst in the left hemipelvis measures 0.5 x 1.5 cm. Degenerative changes of the lumbar Electronically Signed: Sylvain Leon MD, NASH at 18:38 EDT ,
== END | disposition home or self-care (01) ==
LOC: CT 15:40
PROVIDERS: PCP Family Medicine
DX: M89.8X8 Other specified disorders of bone, other site (principal)
CPT/HCPCS: 71260; 74177; Q9967; A4216

== ENCOUNTER → 2022-10-29 | Outpatient (CLI) | payer MEDICARE, OTHER, SELFPAY ==
--- NOTE | 2022-10-29 12:47 | CT_ITS ---
STUDY: CT BRAIN WITHOUT CONTRAST REASON FOR EXAM: Female, 76 years old. SKULL MASS *3D RECONSTRUCTION* RADIATION DOSAGE (If Supplied By Facility): CTDIvol = ( 44.99 ) mGy, DLP = ( 812.98 ) mGycm TECHNIQUE: Transaxial CT imaging of the brain was performed without administration of intravenous contrast material. Individualized dose optimization techniques were used for this CT. COMPARISON: Head CT dated September 23, 2022 FINDINGS: Redemonstration of a soft tissue mass of the scalp and lateral and superior aspect of the left side of frontal bone which is eroded the outer cortex and extends through the medullary portion of the bone into the subdural space in the superior aspect of the left frontal lobe. The portion of the mass in the lateral convexity and superior aspect of the left frontal lobe results in mild mass effect on the underlying parenchyma as seen on image /44 series 2. 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 The malignant mass extends to the junction of the left parietal bone near the apex of the skull. No parenchymal edema or definite infiltration is seen by CT but this should be further evaluated by MRI. No definite areas of parenchymal edema or obvious masses are seen in the remaining aspects of the brain. Normal size ventricles and extra-axial spaces for the patient''s age. Normal white matter tracts of the cerebral hemispheres. Normal basal ganglia and thalami. Normal brainstem. Normal cerebellum. There is no intracranial hemorrhage. There are no findings of an acute ischemic infarction. Normal visualized paranasal sinuses. CT/Brain/Head without Contrast IMPRESSION: 1. Redemonstration of a soft tissue mass of the scalp and lateral and superior aspect of the left side of frontal bone which is eroded the outer cortex and extends through the medullary portion of the bone into the subdural space in the superior aspect of the left frontal lobe. The portion of the mass in the lateral convexity and superior aspect of the left frontal lobe results in mild mass effect on the underlying parenchyma as seen on image 27/44 series 2. 2. 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 The malignant mass extends to the junction of the left parietal bone near the apex of the skull. No parenchymal edema or definite infiltration is seen by CT but this should be further evaluated by MRI. No definite areas of parenchymal edema or obvious masses are seen in the remaining aspects of the brain. Electronically Signed: Rafa Resendez MD at 14:25 EDT ,
--- NOTE | 2022-10-29 13:00 | CT_ITS ---
STUDY: CT BRAIN WITHOUT CONTRAST WITH 3-D RECONSTRUCTIONS OF THE SKULL. REASON FOR EXAM: Female, 76 years old. MASS RADIATION DOSAGE (If Supplied By Facility): CTDIvol = ( 44.99 ) mGy, DLP = ( 812.98 ) mGycm TECHNIQUE: Transaxial CT imaging of the brain was performed without administration of intravenous contrast material. Individualized dose optimization techniques were used for this CT. COMPARISON: Noncontrast head CT dated October 29, 2022 and September 23, 2022 FINDINGS: Redemonstration of a 6.69 x 1.90 x 3.94 cm soft tissue mass of the scalp and lateral and superior aspect of the left side of frontal bone which has eroded the outer cortex and extends through the medullary portion of the bone into the subdural space in the superior aspect of the left frontal lobe. The portion of the mass in the lateral convexity and superior aspect of the left frontal lobe results in mild mass effect on the underlying parenchyma as seen on image 27/44 series 2. 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 The malignant mass extends to the junction of the left parietal bone near the apex of the skull. No parenchymal edema or definite infiltration is seen by CT but this should be further evaluated by MRI. No definite areas of parenchymal edema or obvious masses are seen in the remaining aspects of the brain. The left frontal bone/soft tissue aggressive mass does not cross the midline to affect the right side of the bone. No additional lytic or blastic lesions are seen in the bony structures. CT/Coronals Sag Multi Obl 3-D Rec IMPRESSION: 1. 6.69 x 1.90 x 3.94 cm soft tissue mass of the scalp and lateral and superior aspect of the left side of frontal bone which has eroded the outer cortex and extends through the medullary portion of the bone into the subdural space in the superior aspect of the left frontal lobe. The portion of the mass in the lateral convexity and superior aspect of the left frontal lobe results in mild mass effect on the underlying parenchyma as seen on image 27/44 series 2. 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 Electronically Signed: Rfaa Resendez MD at 14:35 EDT ,
== END | disposition home or self-care (01) ==
LOC: CT 12:46
PROVIDERS: PCP Family Medicine
DX: M89.8X8 Other specified disorders of bone, other site (principal)
CPT/HCPCS: 70450; 76377

== ENCOUNTER → 2022-11-09 | Outpatient (CLI) | payer MEDICARE, OTHER, SELFPAY ==
[2022-11-09 15:22] LABS: Absolute Lymphocyte Count 1.41 X10^3/uL (0.83-4.51); Absolute Neutrophil Count 6.1 X10^3/uL (2.0-7.7); Basophil# 0.03 X10^3/uL; Basophil% 0.4 % (0-1); Eosinophil# 0.08 X10^3/uL; Hematocrit 34.7 % (37-47); Hemoglobin 12.2 g/dL (12.0-15.0); Lymphocyte # 1.41 X10^3/ul (0.83-4.51); Lymphocyte % 16.9 % (19-41); Mean Corp Hgb Conc 35.2 g/dL (32-36); Mean Corpuscular Volume 88.3 fL (81-99); Mean Platelet Vol. 9.8 fl (6.2-12.0); Monocyte# 0.73 X10^3/uL; Monocyte% 8.8 % (0-10); NRBC Flagged by Analyzer 0 % (0-5); Neutrophil # 6.05 X10^3/uL (2.7-7.7); Neutrophil % 72.5 % (47-70); Platelet Count 272 K/mm3 (150-450); RBC Distribution Width CV 13.2 % (11.6-14.6); RBC Distribution Width SD 42.7 fl (35.1-43.9); Red Blood Count 3.93 M/mm3 (4.2-5.4); White Blood Count 8.3 K/mm3 (4.4-11.0)
[2022-11-09 15:47] LABS: International Normalized Ratio 0.9; Prothrombin Time (Protime)PT. 12.5 SECONDS (11.7-14.9)
[2022-11-09 15:48] LABS: Partial Thromboplast Time 29.1 Seconds (24.1-36.2)
[2022-11-09 15:51] LABS: Anion Gap 6 (5-15); BUN 15 mg/dL (7-18); BUN/Creat Ratio 21.3 RATIO (10-20); Calcium,Total 9.3 mg/dL (8.5-10.1); Chloride 100 mmol/L (98-107); EST Glomerular Filtration Rate 85 mL/min (>60); Est Glom Filt Rate - Afr Amer 103 mL/min (>60); Glucose 108 mg/dL (74-106); Potassium 3.8 mmol/L (3.5-5.1); Sodium Level 133 mmol/L (136-145)
== END | disposition home or self-care (01) ==
LOC: LAB 14:56
PROVIDERS: PCP Family Medicine
DX: Z01.818 Encounter for other preprocedural examination (principal); M89.8X8 Other specified disorders of bone, other site; R79.89 Other specified abnormal findings of blood chemistry; R79.1 Abnormal coagulation profile
CPT/HCPCS: 36415; 80048; 85025; 85610; 85730

== ENCOUNTER 2022-12-06 18:30 | Inpatient (IN) | payer MEDICARE, OTHER, SELFPAY ==
[2022-12-06 19:07] VITALS: BP 128/47; PULSE 79; RESP 18; TEMP 37; O2SAT 98; BMI 29.0
[2022-12-06 22:31] LABS: Bedside Glucose 264 mg/dL (74-106)
[2022-12-06] MEDS: Doxazosin 1 MG Tablet 2 MG PO (22:48)
[2022-12-06] MEDS: Sodium Chloride 1 GM Tablet 2 GM PO (22:48)
[2022-12-06] MEDS: Atorvastatin Calcium 10 MG Tablet PO (22:48)
[2022-12-06] MEDS: Cephalexin 500 MG Capsule PO (22:48)
[2022-12-06] MEDS: Linezolid 600 MG Tablet PO (22:49)
[2022-12-06] MEDS: Menthol/Lanolin/Calamine/Znox 113 GM Tube 1 APPLIC TOPICAL (22:52)
[2022-12-06 22:55] VITALS: BP 124/55; PULSE 95; RESP 18; TEMP 36.8; O2SAT 97
[2022-12-07 06:09] LABS: Hematocrit 29.7 % (37-47); Hemoglobin 10.1 g/dL (12.0-15.0); Mean Corpuscular Hgb 30.2 pg (27.0-32.0); Mean Corpuscular Volume 88.9 fL (81-99); Mean Platelet Vol. 9.2 fl (6.2-12.0); Platelet Count 229 K/mm3 (150-450); RBC Distribution Width CV 14.4 % (11.6-14.6); RBC Distribution Width SD 46.3 fl (35.1-43.9); Red Blood Count 3.34 M/mm3 (4.2-5.4)
[2022-12-07 06:44] LABS: Bedside Glucose 119 mg/dL (74-106)
[2022-12-07 06:54] LABS: ALB/GLOB Ratio 0.6 RATIO (0.9-2.4); AST(SGOT) 16 U/L (15-37); Alanine Aminotransfer ALT/SGPT 23 U/L (13-56); Albumin, Serum 1.8 g/dL (3.2-5.0); Alkaline Phosphatase 74 U/L (45-117); Anion Gap 1 (5-15); BUN 14 mg/dL (7-18); BUN/Creat Ratio 36.1 RATIO (10-20); Chloride 104 mmol/L (98-107); Creatinine, Serum 0.39 mg/dL (0.55-1.02); EST Glomerular Filtration Rate 170 mL/min (>60); Est Glom Filt Rate - Afr Amer 205 mL/min (>60); Estimated Creatinine Clearance 43.78 ml/min; Glucose 122 mg/dL (74-106); Magnesium 1.7 mg/dL (1.6-2.6); Phosphorus 3.2 mg/dL (2.5-4.9); Protein, Total 4.8 g/dL (6.4-8.2); Sodium Level 133 mmol/L (136-145)
[2022-12-07 07:49] VITALS: BP 132/53; PULSE 98; RESP 17; TEMP 36.6; O2SAT 99
[2022-12-07 08:00] VITALS: BP 157/61; BP 169/64; PULSE 102; PULSE 92
[2022-12-07] MEDS: Senna/Docusate Sodium 1 Tablet 2 TABLET PO (08:50)
[2022-12-07] MEDS: Linezolid 600 MG Tablet PO ×2 (09:03→20:35)
[2022-12-07] MEDS: Sodium Chloride 1 GM Tablet 2 GM PO ×2 (09:11→20:34)
[2022-12-07] MEDS: Carvedilol 12.5 MG Tablet PO ×2 (09:11→18:42)
[2022-12-07] MEDS: Polyethylene Glycol 3350 17 GM PACKET PO (09:11)
[2022-12-07] MEDS: Cephalexin 500 MG Capsule PO ×2 (09:11→20:35)
[2022-12-07] MEDS: Menthol/Lanolin/Calamine/Znox 113 GM Tube 1 APPLIC TOPICAL ×2 (09:12→20:34)
--- NOTE | 2022-12-07 09:46 | PCM.HP.STD ---
HPI - General General Date of Admission: 12/06/22 Date of Service: 12/07/22 Chief Complaint: Debility due to craniectomy for meningioma resection. 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 On 11/16/22. Postoperative course was complicated by a right thalamic/internal capsule CVA. She also had steroid induced hyperglycemia and hyponatremia. She is not diabetic and a HGBA1C was 5.4. Post op she was seen by PT/OT/ST and recommendation for acute inpt rehab at [facility] was made. Fredo was transferred to the acute inpt rehab unit at [facility] on 12/06/22 for 3 hours of therapy daily to restore function/independence at or near her level prior to the surgery. Reportedly was C DIFF + at the previous hospital but, not currently having diarrhea........she is actually on 2 stool softeners. May be a carrier. 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 Decreased caliber and number of right M2 MCA and distal branches. Intracranial arterial atherosclerosis contributes to multifocal severe stenoses including severe stenoses of the right carotid terminus, distal left supraclinoid internal carotid artery, focal severe stenosis of the proximal left M1 MCA, multifocal severe stenoses of the right A1 anterior communicating artery, right P1 posterior cerebellar artery and focal severe stenosis of the proximal left P2 [employer]. There were several small foci of acute infarct most notably involving the right thalamus and right cerebellar hemisphere. There were also a few other punctate foci elsewhere in both cerebral hemispheres. ECHO: The left ventricle is of normal size and has normal wall thickness and normal global systolic function with an estimated ejection fraction of 65 to 70%. There were no wall motion abnormalities. Both atria were of normal size and there is no evidence of a right to left shunt. She has mild to moderate mitral stenosis with no regurgitation. The estimated right ventricular systolic pressure is elevated at 48 consistent with moderate pulmonary hypertension. 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 No seizures were seen. Needs a 30 day event monitor at [facility]. Afebrile VSS -blood pressures have ranged from 124/55 to 157/61 since admission to rehab. Heart rate has ranged from 79-102. Maintaining appropriate oxygen saturation on RA -97 to 99%. Oral intake is good. She ate 75 to 100% of her breakfast today. Oral intake is 1020 since admission and this is in less than 24H. She is incontinent of urine. No PVRs have been done yet. The blood sugar record was reviewed. At bedtime blood sugar was 264 and the fasting is 119 today. She is off dexamethasone but is on no medication to cover high blood sugars. Will institute a sliding insulin scale which I doubt we will need for long because she has a normal hemoglobin A1c and no history of diabetes mellitus. Discussed with nursing - Pt is very weak and needs 2-3 person assist for stand/pivot. Medication list reviewed. She is on linezolid and Keflex. All lab drawn this morning was personally reviewed. White blood cell count is normal at 10, hemoglobin is mildly decreased 10.1 and platelets are within normal limits. Sodium is 133 and was low even prior to the craniectomy and CVA. Potassium is normal at 4.0. BUN is 14 with a creatinine of 0.39. Based Creatinine since 2000 is 0.7-0.89. She was on hydrochlorothiazide during that time. Magnesium is low normal at 1.7. Calcium corrected for hypoalbuminemia is within normal limits. Albumin is decreased at 1.8. LFTs are unremarkable. Lipid panel done in September 2022 shows a total cholesterol of 164 with an LDL of 82 and an HDL of 63. Triglycerides were within normal limits. [facility] Medical History (Updated 12/08/22 @ 16:[address] Jo-Ann Arias, ) Cerebrovascular disease Hemorrhoids High cholesterol HTN (hypertension) Mitral stenosis Pulmonary hypertension Stroke/cerebrovascular accident Home Medications atenolol 50 mg tablet 50 mg PO DAILY blood pressure 07/05/18 [History Last Taken 08/28/20] atorvastatin 10 mg tablet 10 mg PO QHS cholesterol 07/05/18 [History Last Taken 08/27/20] hydrochlorothiazide 25 mg tablet 25 mg PO DAILY BP 07/05/18 [History Last Taken 08/28/20] multivitamin 1 tablet PO DAILY supplement 08/12/20 [History Last Taken 08/28/20] ascorbic acid 100 mg-elderberry fruit 50 mg chewable tablet 1 each PO DAILY supplement 08/14/20 [History Last Taken 08/27/20] calcium carbonate 500 mg-vitamin D3 15 mcg (600 unit) tablet 2 each PO DAILY supplement 08/14/20 [History Last Taken 08/28/20] cholecalciferol (vitamin D3) 125 mcg (5,000 unit) capsule 125 mcg PO DAILY supplement 08/14/20 [History Last Taken 08/28/20] cyanocobalamin (vitamin B-12) 500 mcg chewable tablet 1,000 mcg PO DAILY supplement 08/14/20 [History Last Taken 08/27/20] acetaminophen 325 mg tablet (Tylenol) 650 mg PO Q4H PRN pain 12/06/22 [History Last Taken Unknown] ascorbic acid (vitamin C) 500 mg tablet (C-500) 500 mg PO DAILY@1200 vitamin 12/06/22 [History Last Taken Unknown] carvedilol 12.5 mg tablet (Coreg) 12.5 mg PO BIDCM heart 12/06/22 [History Last Taken Unknown] cephalexin 500 mg capsule 500 mg PO Q12H atb 12/06/22 [History Last Taken Unknown] doxazosin 2 mg tablet (Cardura) 2 mg PO QHS heart 12/06/22 [History Last Taken Unknown] ferrous sulfate 325 mg (65 mg iron) tablet (Loly-Time) 325 mg PO DAILY@1200 iron 12/06/22 [History Last Taken Unknown] linezolid 600 mg tablet 600 mg PO Q12H atb 12/06/22 [History Last Taken Unknown] polyethylene glycol 3350 17 gram oral powder packet (Miralax) 17 g PO DAILY constipation 12/06/22 [History Last Taken Unknown] selenium 200 mcg capsule 200 mcg PO DAILY vitamin 12/06/22 [History Last Taken Unknown] sodium chloride 1,000 mg soluble tablet 2,000 mg PO BID vitamin 12/06/22 [History Last Taken Unknown] zinc sulfate 50 mg zinc (220 mg) capsule (Orazinc) 220 mg PO DAILY vitamin 12/06/22 [History Last Taken Unknown] Allergy/AdvReac Type Severity Reaction Status Date / Time No Known Allergies Allergy Verified 07/31/21 17:01 Family History Father CVA (cerebral vascular accident) Heart disease Mother Diabetes Surgical History (Updated 12/08/22 @ 16:[address] Jo-Ann Arias DO) H/O craniotomy S/P bilateral breast reduction S/P carpal tunnel release S/P hysterectomy Status post hemorrhoidectomy (~08/19/20) Social History Smoking Status: Never smoker alcohol intake: never ROS Review of Systems ROS Unobtainable: Denies due to encephalopathy, due to endotracheal tube, due to mental condition or due to mental status Constitutional Constitutional: Reports fatigue and weakness; Denies anorexia, change in weight, chills, fever(s) or night sweats Eyes Eyes: Denies blurry vision, change in vision, eye pain or loss of vision ENT HEENT: Denies abnormal hearing, dysphagia, headache(s), hearing loss, nasal congestion or sore throat Cardiovascular Cardiovascular: Reports lightheadedness; Denies chest pain, dyspnea on exertion, edema, orthopnea, palpitations, paroxysmal nocturnal dyspnea or syncope Respiratory/Chest Respiratory/Chest: Denies cough, dyspnea, shortness of breath at rest, shortness of breath with exertion or wheezing Gastrointestinal Gastrointestinal: Denies abdominal pain, constipation, diarrhea, dyspepsia, hematemesis, hematochezia, nausea or vomiting Genitourinary Genitourinary: Denies dysuria, hematuria, nocturia, urinary frequency, urinary hesitancy, urinary incontinence or urinary urgency Musculoskeletal Musculoskeletal: Denies back pain, joint pain, joint swelling or neck pain Neurologic Neurologic: Reports disequilibrium and other Details: has noticed some problems with her memory since the CVA ; Denies confusion, dizziness, focal weakness, headache(s), paresthesias, seizures or tremor(s) Psychiatric Psychiatric: Denies anxiety, depression, homicidal ideation or suicidal ideation Endocrine Endocrinology: Denies change in body appearance, polydipsia or polyuria Hematologic/Lymphatic Hematologic/Lymphatic: Denies easy bleeding, easy bruising or lymphadenopathy Allergic/Immunologic Allergic/Immunologic: Denies rhinitis, eczemia or asthma Vital Signs Vital Signs Vital Signs: 12/06/22 19:07 12/06/22 22:55 12/06/22 22:00 Temperature 98.6 F 98.2 F Temperature Source Temporal Temporal Pulse Rate 79 95 Pulse Rate [Lying] Pulse Rate [Sitting (for 1 minute prior to obtaining)] Pulse Strength Normal (2+) Respiratory Rate 18 18 Respiratory Effort Respiratory Depth Respiratory Pattern Blood Pressure 128/47 H 124/55 H Blood Pressure [Lying] Blood Pressure [Sitting (for 1 minute prior to obtaining)] Blood Pressure Mean 74 78 Blood Pressure Mean [Lying] Blood Pressure Mean [Sitting (for 1 minute prior to obtaining)] Blood Pressure Source Monitor Monitor Blood Pressure Position Semi-Fowlers Semi-Fowlers Blood Pressure Location Left Arm Left Arm Pulse Ox 98 97 Oxygen Delivery Method Room Air Room Air 12/06/22 23:30 12/07/22 07:49 12/07/22 08:00 Temperature 97.9 F Temperature Source Temporal Pulse Rate 98 Pulse Rate [Lying] 92 Pulse Rate [Sitting (for 1 minute prior to obtaining)] 102 H Pulse Strength Respiratory Rate 17 Respiratory Effort Normal Non-Labored Respiratory Depth Normal Respiratory Pattern Normal Blood Pressure 132/53 H Blood Pressure [Lying] 157/61 H Blood Pressure [Sitting (for 1 minute prior to obtaining)] 169/64 H Blood Pressure Mean 79 Blood Pressure Mean [Lying] 93 Blood Pressure Mean [Sitting (for 1 minute prior to obtaining)] 99 Blood Pressure Source Monitor Blood Pressure Position Semi-Fowlers Blood Pressure Location Right Arm Pulse Ox 99 Oxygen Delivery Method Room Air Room Air Weight Weight: 134 lb 0.657 oz Body Mass Index (BMI) 29.0 Physical Exam Const alert and no apparent distress Constitutional Narrative: Lying in bed resting. No tachypnea and no labored breathing. She is pleasant and appropriate. General Appearance: cooperative and well kempt HEENT HEENT Narrative: Dry MM with thrush. Eyes EOMs intact bilaterally, conjunctivae normal and no scleral icterus Eyes Narrative: Discharge from the eyes and no mattering of the eyelashes. EOMI Neck supple General: normal visual inspection and trachea midline Chest Chest: symmetrical chest wall rise Resp normal respiratory effort, normal air movement and clear to auscultation bilaterally Effort and Inspection: able to speak in complete sentences Cardio regular rate, regular rhythm, S1 normal heart sound, S2 normal heart sound, no rub and no gallops Cardio Narrative: She has a systolic MM at the second RICS that radiates to the LLSB and apex. Also with a systolic MM in the Left axillary area. GI normal to inspection, nondistended, normoactive bowel sounds, soft to palpation and non-tender GI Narrative: No guarding with palpation no CVA tenderness Extremity no calf tenderness Extremity Narrative: She has edema of the LUE from an IV that infiltrated. Also had mild edema of both LE's. Skin General Skin Exam: no breakdown Rashes: no rashes Wound Narrative: The craniotomy incision is intact with no discharge, no magdaleno-incisional erythema. There is a raised area away from the incision that is soft to palpation and not tender. No fluctuance. Not warm to touch and not red. Neuro CN's II-XII intact bilaterally, moves all extremities, no focal motor deficits and no sensory deficits noted Neuro Narrative: Generalized weakness is severe with poor endurance. No visual field cuts. Psych cooperative, affect normal and speech normal Psych Narrative: Therapy mentions that patient is very fearful of falling and is hesitant to try things without 2 people present. Appearance: grossly normal Attitude: calm Activity / Motor Behavior: appropriate eye contact Speech: normal speech Results Lab / Micro Data 12/07/22 06:00 12/07/22 06:00 Labs: Laboratory Results - last 24 hr 12/06/22 22:13: POC Glucose 264 H 12/07/22 06:00: WBC 10.0, RBC 3.34 L, Hgb 10.1 L, Hct 29.7 L, MCV 88.9, MCH 30.2, MCHC 34.0, RDW Std Deviation 46.3 H, RDW Coeff of Marga 14.4, Plt Count 229, MPV 9.2, Sodium 133 L, Potassium 4.0, Chloride 104, Carbon Dioxide 28.0, Anion Gap 1 L, BUN 14, Creatinine 0.39 L, Estim Creat Clear Calc 43.78, Est GFR (MDRD) Af Amer 205, Est GFR (MDRD) Non-Af 170, BUN/Creatinine Ratio 36.1 H, Glucose 122 H, Calcium 8.0 L, Phosphorus 3.2, Magnesium 1.7, Total Bilirubin 1.00, AST 16, ALT 23, Alkaline Phosphatase 74, Total Protein 4.8 L, Albumin 1.8 L, Globulin 3.0, Albumin/Globulin Ratio 0.6 L 12/07/22 06:26: POC Glucose 119 H Assessment & Plan Assessment/Plan (1) Physical debility: (2) Scalp lesion: PLAN: Due to meningioma with intraosseous extension. (3) H/O craniotomy: PLAN: 11/16/22 at [facility] (4) Ischemic cerebrovascular accident (CVA): PLAN: Several foci of acute infarct most notably involving the right thalamus and right cerebellar hemisphere but she also had a few other punctate foci in both cerebral hemispheres. 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 (5) Cerebrovascular disease: PLAN: Multiple areas of stenoses in the cerebral arteries. (6) Pulmonary hypertension: PLAN: Recent ECHO with PA systolic estimated at 48. (7) Mitral stenosis: QUALIFIERS: Cardiac valve disease etiology: nonrheumatic Qualified Code(s): I34.2 - Nonrheumatic mitral (valve) stenosis PLAN: Mild to moderate. (8) Acute blood loss anemia: (9) Hyponatremia: (10) Thrush: (11) C. difficile enteritis: PLAN: Reported by the previous hospital. PLAN: Plan PLAN PT for gait stability OT for ADL's ST for evaluation Analgesics as needed Bowel protocol Fall precautions Assess for Anxiety/Depression GI prophylaxis -not necessary at this time. Patient has no epigastric pain, nausea, vomiting or history of peptic ulcer disease. DVT prophylaxis with heparin 5000 units subcu every 12 hours Follow up with neurosurgeon, plastic surgeon and Dr. Venegas following DC from [facility] Rehab AM lab including CMP, CBC, Mag and Phos -personally reviewed 30 day event monitor at [facility] C. difficile toxin/antigen C. difficile PCR isolation until the results of the C Diff testing is available. heparin 5000 units subcu every 12 hours for DVT prophylaxis Low medium sliding insulin scale - she is not diabetic but, BS still elevated due to steroids she received at [facility]. Nystatin swish and swallow for thrush. She is third spacing fluid due to low Albumin and salt tabs. Consider giving 25 of Albumin and 20 mg of Lasix if the edema does not resolve with increased movement. Mag is only 1.7 which is low normal however, she had probable embolic strokes in the hospital post-op so would like to see the MAG at 2 so will order a supplement. Charges/Coding Visit Charges Inpatient E&M: 84764 Init Hosp L3
[2022-12-07 11:36] LABS: Bedside Glucose 204 mg/dL (74-106)
[2022-12-07] MEDS: Ferrous Sulfate 325 MG Tablet PO (11:55)
[2022-12-07] MEDS: Ascorbic Acid 500 MG Tablet PO (11:55)
[2022-12-07] MEDS: Insulin Lispro 100 UNIT/ML INSULN.PEN SC (11:55)
[2022-12-07 15:50] VITALS: O2SAT 98
[2022-12-07 16:32] LABS: Bedside Glucose 143 mg/dL (74-106)
[2022-12-07 19:59] VITALS: BP 130/54; PULSE 77; RESP 18; TEMP 37.1; O2SAT 98
[2022-12-07] MEDS: Atorvastatin Calcium 10 MG Tablet PO (20:35)
[2022-12-07] MEDS: Heparin Injection (Vial) 5,000 UNIT/ML VIAL 5000 UNIT SC (20:35)
[2022-12-07] MEDS: Doxazosin 1 MG Tablet 2 MG PO (20:35)
[2022-12-07 22:55] LABS: Bedside Glucose 191 mg/dL (74-106)
[2022-12-08 06:44] LABS: Bedside Glucose 128 mg/dL (74-106)
[2022-12-08 08:04] VITALS: BP 147/61; PULSE 98; RESP 16; TEMP 36.7; O2SAT 97
[2022-12-08] MEDS: Senna/Docusate Sodium 1 Tablet 2 TABLET PO (09:47)
[2022-12-08] MEDS: Sodium Chloride 1 GM Tablet 2 GM PO ×2 (09:47→21:04)
[2022-12-08] MEDS: Heparin Injection (Vial) 5,000 UNIT/ML VIAL 5000 UNIT SC ×2 (09:48→21:04)
[2022-12-08] MEDS: Polyethylene Glycol 3350 17 GM PACKET PO (09:48)
[2022-12-08] MEDS: Carvedilol 12.5 MG Tablet PO ×2 (09:48→17:34)
[2022-12-08] MEDS: Linezolid 600 MG Tablet PO ×2 (09:48→21:04)
[2022-12-08] MEDS: Cephalexin 500 MG Capsule PO ×2 (09:48→21:04)
[2022-12-08] MEDS: Menthol/Lanolin/Calamine/Znox 113 GM Tube 1 APPLIC TOPICAL ×2 (09:57→21:04)
[2022-12-08 11:26] LABS: Bedside Glucose 134 mg/dL (74-106)
[2022-12-08] MEDS: Ferrous Sulfate 325 MG Tablet PO (11:49)
[2022-12-08] MEDS: Ascorbic Acid 500 MG Tablet PO (11:49)
[2022-12-08 15:28] VITALS: BMI 29.0
--- NOTE | 2022-12-08 16:32 | REHABEVAL_ITS ---
Admission Information Primary Diagnosis:: Physical debility secondary to recent craniotomy to remove an extensive meningioma with postop ischemic CVAs most notably in the right internal capsule and right thalamus. Status Changes from Prescreening?: No changes Identified Actual Problem List:: Skin Intergrity, Pain, ALteration in Cmfrt, Cognitve Impr/Memory Loss, Mobility Impaired, Self Care Deficit and Alteration-Leisure Activ. Potential Problem List:: DVT, Bleeding, Infection, UTI, Aspiration, Falls, Skin Integrity and Depression Risk of Complications DVT: TORSTEN Hose and - (Heparin 5000 units subcu every 12 hours) Bleeding: Monitor Lab Values, Nursing to Teach Precautions for anti-coagulation therapy., Wound, if applicable, to be assessed every shift. and Stroke patients assessed for lethargy or change in status. Infection: Clinical Staff to Monitor for S/S of infection: and S/S of infection include fever, redness, warmth, etc. Urinary Tract Infection: Monitor for frequency, burning, discomfort, or incontinence. and Nursing will obtain urine sample for urinalysis and C&S when ordered. Aspiration: Clinical staff will monitor for coughing, drooling, congestion., Speech will evaluate swallowing and dsyphasia. and Nursing will monitor patient swallowing during meals. Falls: Patient will be evaluated for Fall Precautions and Patient will be placed on Fall Precautions as indicated per protocol. Skin Breakdown: Nursing will assess skin daily using assessment tool. and N ursing will place on Skin Breakdown Precautions as indicated. Pain: Clinical staff will assess patient's pain level per protocol., Medications will be given, if needed, and the pain level reassessed. and Other methods: Massage, distraction, decrease stimulus, etc. used PRN. Plan of Care Patient requires physician specializing in physical medicine and rehab oversight to provide close medical supervision of rehab issues including: Pain Management, Sleep Problems, Bowel and Bladder, Medical and co-morbidity Management, DVT prophylaxis, Rehabilitation Leadership and Coordination of treatment team Patient needs Physical Therapy: For a minimum of 1 hour and At least 5 out of 7 days Patient needs Physical Therapy to improve:: Mobility, Strengthening, Transfers, Stretching, ROM, Endurance, Stairs, Gait and Balance Patient needs Occupational Therapy: For a minimum of 1 hour and At least 5 out of 7 days Patient needs Occupational Therapy to improve ADL's incl.: Eating, Grooming, Bathing, Dressing, Toileting, Toilet transfers, Community Reintegration, Higher functioning activities, Household tasks, Adaptive Equipment, Splinting and Other activities as determined Patient requires speech therapy: For a minimum of 1 hour and At least 5 out of 7 days Patient requires speech therapy for: Swallowing, Cognition, Language Skills and Compensatory Strategies Patient requires 24/7 Rehabilitation Nursing for: Pain Issues, Identifying and preventing risk factors, Monitoring and reporting current medical conditions, Assisting with ambulation, transfer, and all ADL's, Teaching patients about disease process and medications, Family teaching, Providing safe environment, Bowel and Bladder Issues, Skin integrity and Medication Management Patient needs Special Agent Group Insurance/ Case Management for: Discharge Planning, Arranging Home Equipment or Services and Family Interventions Patient needs Dietary and Nutrition Services for: Adequate Nutrition, Nutritional Supplements and Nutritional Education Goals Patient will remain: free from falls and or injury at time of discharge. Patient will perform bed mobility at: MOD I level of assist. Patient will complete transfers from bed to chair at: MOD I level of assist. Patient will ambulate: with LRD and - (350 feet at Mod I with FWW) Patient will complete upper body dressing at: MOD I level of assist. Patient will complete lower body dressing at: MOD I level of assist. Patient will complete toileting at: MOD I level of assist. Patient will perform bathing at: Standby Assist. Patient will complete grooming at: MOD I level of assist. Patient will complete home management skills at: MOD I level of assist. Patient will achieve: - (1 curb step and 4 steps to gain entry to her home) Patient will have pain level of: of 3 or less Patient's skin will: remain intact Patient will receive: adequate nutrition. Discharge Planning Pt Prognosis for Sig. Practical Improv. w/in Reasonable Time: Good Estimated Length of stay (days): 28 Anticipated D/C Destination: Home with Outpt Therapy Was Preadmission Assessment Accurate?: Yes
[2022-12-08 16:56] LABS: Bedside Glucose 136 mg/dL (74-106)
[2022-12-08] MEDS: NYSTATIN 500,000 UNIT/5 ML UDC 500000 UNIT PO ×2 (17:34→21:04)
[2022-12-08 19:09] VITALS: O2SAT 97
[2022-12-08 19:30] VITALS: PULSE 81; RESP 16; O2SAT 99
[2022-12-08 19:34] VITALS: BP 121/44; PULSE 81; RESP 16; TEMP 37.2; O2SAT 99
[2022-12-08] MEDS: Atorvastatin Calcium 10 MG Tablet PO (21:04)
[2022-12-08] MEDS: Doxazosin 1 MG Tablet 2 MG PO (21:04)
[2022-12-08 21:18] LABS: Bedside Glucose 164 mg/dL (74-106)
[2022-12-08 22:00] VITALS: BMI 29.0
[2022-12-09 06:36] LABS: Bedside Glucose 120 mg/dL (74-106)
[2022-12-09] MEDS: Carvedilol 12.5 MG Tablet PO ×2 (08:09→17:23)
[2022-12-09 08:12] VITALS: BP 140/49; PULSE 96; RESP 18; TEMP 36.8; O2SAT 97
[2022-12-09] MEDS: NYSTATIN 500,000 UNIT/5 ML UDC 500000 UNIT PO ×4 (10:18→21:41)
[2022-12-09] MEDS: Magnesium Chloride 64 MG Delay Rel.Tablet 128 MG PO (10:18)
[2022-12-09] MEDS: Polyethylene Glycol 3350 17 GM PACKET PO (10:18)
[2022-12-09] MEDS: Cephalexin 500 MG Capsule PO ×2 (10:18→21:42)
[2022-12-09] MEDS: Heparin Injection (Vial) 5,000 UNIT/ML VIAL 5000 UNIT SC ×2 (10:19→21:42)
[2022-12-09] MEDS: Sodium Chloride 1 GM Tablet 2 GM PO ×2 (10:19→21:41)
[2022-12-09] MEDS: Senna/Docusate Sodium 1 Tablet 2 TABLET PO (10:19)
[2022-12-09] MEDS: Linezolid 600 MG Tablet PO ×2 (10:20→21:41)
[2022-12-09] MEDS: Menthol/Lanolin/Calamine/Znox 113 GM Tube 1 APPLIC TOPICAL ×2 (10:21→21:42)
[2022-12-09 11:37] LABS: Bedside Glucose 175 mg/dL (74-106)
[2022-12-09] MEDS: Ascorbic Acid 500 MG Tablet PO (11:47)
[2022-12-09] MEDS: Ferrous Sulfate 325 MG Tablet PO (11:47)
[2022-12-09] MEDS: Insulin Lispro 100 UNIT/ML INSULN.PEN SC (11:47)
--- NOTE | 2022-12-09 12:51 | CASEMGMT ---
Social Work IDT met with patient and two daughters for Team meeting. Discussed patient's progress in PT/OT/ST/SN. Educated to Medicare approval of 26 days with [facility] 01/01. Pt's goal is to return home close to PLOF. Pt does live home alone with 4 CHRIS. 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 Will ReTeam weekly. SW to continue to follow for DC planning. Vanessa Zhao, SYSTEMS DEVELOPMENT CONSULTANT [employer]
[2022-12-09 17:00] VITALS: BMI 29.0
[2022-12-09 17:13] LABS: Bedside Glucose 131 mg/dL (74-106)
[2022-12-09 20:24] LABS: Bedside Glucose 153 mg/dL (74-106)
[2022-12-09 21:30] VITALS: BP 149/59; PULSE 83; RESP 16; TEMP 36.8; O2SAT 98; BMI 29.0
[2022-12-09] MEDS: Doxazosin 1 MG Tablet 2 MG PO (21:41)
[2022-12-09] MEDS: Atorvastatin Calcium 10 MG Tablet PO (21:41)
[2022-12-10 06:00] VITALS: BMI 27.9
[2022-12-10 07:17] LABS: Bedside Glucose 120 mg/dL (74-106)
[2022-12-10 08:10] VITALS: O2SAT 94
[2022-12-10 08:11] VITALS: BP 142/61; PULSE 94; RESP 16; TEMP 36.9; O2SAT 97
--- NOTE | 2022-12-10 08:33 | PN_ITS ---
Subjective Subjective Sarah was seen yesterday on TEAM rounds and her family was present in the room. Afebrile VSS Maintaining appropriate oxygen saturation on RA Oral intake is fair. She is taking 50 to 74% of her meals but she is a small person and says her portions are too big. Most of the elderly patients in rehab say they get too much food even though we specify smaller portions. Blood sugar record was reviewed and the blood sugars are under excellent control. Blood sugars were elevated secondary to steroids and she is required no insulin coverage. We will discontinue Accu-Cheks. Discussed with nursing - no problems that need addressed Reviewed the PT/OT/ST notes Medication list reviewed. Sarah tells me that she is very tired and she wants to sleep a lot. She is having no trouble sleeping at night. Therapy wears her out and she has poor exercise tolerance. Denies cephalgia, sore throat, chest pain, shortness of breath at rest, palpitations, vomiting/abdominal pain, dysuria and calf tenderness. She does get a little lightheaded when standing and has some shortness of breath with exertion. She feels rather nauseated today after taking a large handful of medications this morning. Nursing will try to break these up so she does not get so many medications at one time. Objective Data Objective Data Vital Signs: Vital Signs Temp Pulse Resp BP Pulse Ox O2 Del Method 98.5 F 94 16 142/61 H 97 Room Air 12/10/22 08:11 12/10/22 08:11 12/10/22 08:11 12/10/22 08:11 12/10/22 08:11 12/10/22 08:11 Oxygen Delivery Method Room Air Weight: 129 lb 10.109 oz Body Mass Index (BMI) 27.9 Intake & Output: Intake and Output for Last 24 Hours 12/08/22 12/09/22 12/10/22 23:59 23:59 23:59 Intake Total 1250 / 1250 600 / 600 250 / 250 Output Total 305 / 305 7 / 357 750 / 750 Balance 945 / 945 593 / 243 -500 / -500 Lab / Micro Data 12/07/22 06:00 12/07/22 06:00 Labs: Laboratory Results - last 24 hr 12/09/22 11:17: POC Glucose 175 H 12/09/22 16:43: POC Glucose 131 H 12/09/22 20:06: POC Glucose 153 H 12/10/22 06:55: POC Glucose 120 H Micro: Microbiology 12/07/22 18:50 Stool C. difficile GDH Antigen & Toxins - Final 12/07/22 18:50 Stool C. difficile DNA Amplification - Final Physical Exam Const alert and no apparent distress Constitutional Narrative: Lying in bed resting. No tachypnea and no labored breathing. She is pleasant and appropriate. General Appearance: cooperative Resp normal respiratory effort, normal air movement and clear to auscultation bilaterally Effort and Inspection: able to speak in complete sentences Cardio regular rate, regular rhythm, no rub and no gallops Cardio Narrative: She has a systolic MM at the second RICS that radiates to the LLSB and apex. Also with a systolic MM in the Left axillary area. GI normal to inspection, nondistended, normoactive bowel sounds, soft to palpation and non-tender GI Narrative: No guarding with palpation no CVA tenderness Extremity no calf tenderness Extremity Narrative: She has edema of the LUE from an IV that infiltrated. Also had mild edema of both LE's. Skin General Skin Exam: no breakdown Rashes: no rashes Wound Narrative: The craniotomy incision is intact with no discharge, no magdaleno-incisional erythema. There is a raised area away from the incision that is soft to palpat ion and not tender. No fluctuance. Not warm to touch and not red. The incision of the lateral Left thigh is intact with no erythema and no DC. There is some swelling of the left thigh and some pitting in the posterior thigh. There is resolving bruising. The drain has minimal DC. Assessment & Plan Assessment/Plan (1) Physical debility: (2) Scalp lesion: PLAN: Due to meningioma with intraosseous extension. (3) H/O craniotomy: PLAN: 11/16/22 at [facility] (4) Ischemic cerebrovascular accident (CVA): PLAN: Several foci of acute infarct most notably involving the right thalamus and right cerebellar hemisphere but she also had a few other punctate foci in both cerebral hemispheres. 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 (5) Cerebrovascular disease: PLAN: Multiple areas of stenoses in the cerebral arteries. (6) Pulmonary hypertension: PLAN: Recent ECHO with PA systolic estimated at 48. (7) Mitral stenosis: QUALIFIERS: Cardiac valve disease etiology: nonrheumatic Qualified Code(s): I34.2 - Nonrheumatic mitral (valve) stenosis PLAN: Mild to moderate. (8) Acute blood loss anemia: (9) Hyponatremia: (10) Thrush: (11) C. difficile enteritis: PLAN: Reported by the previous hospital. PLAN: Plan 1. Continue therapy 2. Give 25 GM of albumin today and 20 mg of IV Lasix to improve the third spacing of fluids.....neeraj in the legs.....she is telling me her legs feel very heavy 3. Her daughter will get the phone number of the plastic surgeon and I will call and ask if we can remove the drain and the jahaira while she is in rehab. She will not be able to leave rehab to go to her appointment at [facility] in 10 to 14 days. 4. Break up the medications so she does not get so many at one time. 5. Discontinue Accu-Cheks 6. Finished linezolid and cephalexin. 7. Recheck a BMP on Tuesday Charges/Coding Visit Charges Inpatient E&M: 33204 Subs Hosp L2
[2022-12-10] MEDS: Carvedilol 12.5 MG Tablet PO ×2 (09:28→18:35)
[2022-12-10] MEDS: Menthol/Lanolin/Calamine/Znox 113 GM Tube 1 APPLIC TOPICAL ×2 (09:28→22:30)
[2022-12-10] MEDS: Cephalexin 500 MG Capsule PO ×2 (09:29→22:34)
[2022-12-10] MEDS: Magnesium Chloride 64 MG Delay Rel.Tablet 128 MG PO (09:29)
[2022-12-10] MEDS: Linezolid 600 MG Tablet PO ×2 (09:30→22:33)
[2022-12-10] MEDS: Sodium Chloride 1 GM Tablet 2 GM PO ×2 (09:30→22:33)
[2022-12-10] MEDS: NYSTATIN 500,000 UNIT/5 ML UDC 500000 UNIT PO ×4 (09:30→22:34)
[2022-12-10] MEDS: Heparin Injection (Vial) 5,000 UNIT/ML VIAL 5000 UNIT SC ×2 (09:31→22:35)
[2022-12-10] MEDS: Albumin Human 25% (100 mL) 25 GM/100 ML BAG IV (10:50)
[2022-12-10] MEDS: 0.9% Saline Lock 10 ML Syringe IV ×2 (10:50→12:43)
[2022-12-10] MEDS: Furosemide 20 MG/2 ML VIAL IV (10:51)
[2022-12-10] MEDS: Ferrous Sulfate 325 MG Tablet PO (12:08)
[2022-12-10] MEDS: Ascorbic Acid 500 MG Tablet PO (12:08)
[2022-12-10 15:01] VITALS: BMI 27.9
[2022-12-10 19:02] VITALS: BP 146/59; PULSE 89; RESP 15; TEMP 37.1; O2SAT 98
[2022-12-10 22:10] VITALS: BMI 27.9
[2022-12-10] MEDS: Atorvastatin Calcium 10 MG Tablet PO (22:33)
[2022-12-10] MEDS: Doxazosin 1 MG Tablet 2 MG PO (22:33)
[2022-12-10] MEDS: Senna/Docusate Sodium 1 Tablet 2 TABLET PO (22:34)
[2022-12-11 08:26] VITALS: BP 126/48; PULSE 83; RESP 18; TEMP 36.8; O2SAT 98
[2022-12-11] MEDS: Carvedilol 12.5 MG Tablet PO ×2 (10:03→17:31)
[2022-12-11] MEDS: Menthol/Lanolin/Calamine/Znox 113 GM Tube 1 APPLIC TOPICAL ×2 (10:03→23:00)
[2022-12-11] MEDS: Magnesium Chloride 64 MG Delay Rel.Tablet 128 MG PO (10:03)
[2022-12-11] MEDS: Cephalexin 500 MG Capsule PO (10:03)
[2022-12-11] MEDS: NYSTATIN 500,000 UNIT/5 ML UDC 500000 UNIT PO ×4 (10:04→23:02)
[2022-12-11] MEDS: Sodium Chloride 1 GM Tablet 2 GM PO ×2 (10:04→23:02)
[2022-12-11] MEDS: Linezolid 600 MG Tablet PO ×2 (10:04→23:03)
[2022-12-11] MEDS: Heparin Injection (Vial) 5,000 UNIT/ML VIAL 5000 UNIT SC ×2 (10:05→23:02)
[2022-12-11] MEDS: Ascorbic Acid 500 MG Tablet PO (11:48)
[2022-12-11] MEDS: Ferrous Sulfate 325 MG Tablet PO (11:48)
[2022-12-11 14:15] VITALS: BMI 27.9
[2022-12-11] MEDS: 0.9% Saline Lock 10 ML Syringe IV (14:47)
[2022-12-11 22:30] VITALS: BP 124/42; PULSE 82; RESP 15; TEMP 36.8; O2SAT 99; BMI 27.9
[2022-12-11] MEDS: Atorvastatin Calcium 10 MG Tablet PO (23:01)
[2022-12-11] MEDS: Doxazosin 1 MG Tablet 2 MG PO (23:01)
[2022-12-12 07:04] VITALS: BP 138/49; PULSE 89; RESP 17; TEMP 36.7; O2SAT 97
[2022-12-12] MEDS: Linezolid 600 MG Tablet PO (09:02)
[2022-12-12] MEDS: Heparin Injection (Vial) 5,000 UNIT/ML VIAL 5000 UNIT SC ×2 (09:02→22:06)
[2022-12-12] MEDS: Carvedilol 12.5 MG Tablet PO ×2 (09:02→16:53)
[2022-12-12] MEDS: Sodium Chloride 1 GM Tablet 2 GM PO ×2 (09:02→22:06)
[2022-12-12] MEDS: Menthol/Lanolin/Calamine/Znox 113 GM Tube 1 APPLIC TOPICAL ×2 (09:03→22:07)
[2022-12-12] MEDS: Magnesium Chloride 64 MG Delay Rel.Tablet 128 MG PO (09:03)
[2022-12-12] MEDS: NYSTATIN 500,000 UNIT/5 ML UDC 500000 UNIT PO ×4 (09:04→22:05)
[2022-12-12] MEDS: Ferrous Sulfate 325 MG Tablet PO (11:21)
[2022-12-12] MEDS: Ascorbic Acid 500 MG Tablet PO (11:21)
[2022-12-12 15:17] VITALS: BMI 27.9
[2022-12-12 22:00] VITALS: BP 133/59; PULSE 81; RESP 15; TEMP 36.6; O2SAT 97; BMI 27.9
[2022-12-12] MEDS: Atorvastatin Calcium 10 MG Tablet PO (22:05)
[2022-12-12] MEDS: Doxazosin 1 MG Tablet 2 MG PO (22:06)
[2022-12-13 05:35] LABS: Hematocrit 29.1 % (37-47); Hemoglobin 9.8 g/dL (12.0-15.0)
[2022-12-13 06:02] LABS: Anion Gap 4 (5-15); BUN 10 mg/dL (7-18); BUN/Creat Ratio 22.9 RATIO (10-20); Calcium,Total 8.3 mg/dL (8.5-10.1); Chloride 107 mmol/L (98-107); Creatinine, Serum 0.44 mg/dL (0.55-1.02); EST Glomerular Filtration Rate 148 mL/min (>60); Est Glom Filt Rate - Afr Amer 179 mL/min (>60); Estimated Creatinine Clearance 42.34 ml/min; Glucose 106 mg/dL (74-106); Magnesium 1.6 mg/dL (1.6-2.6); Sodium Level 138 mmol/L (136-145)
[2022-12-13 08:13] VITALS: BP 138/56; PULSE 89; RESP 17; TEMP 36.5; O2SAT 99
[2022-12-13] MEDS: Carvedilol 12.5 MG Tablet PO ×2 (08:48→17:56)
[2022-12-13] MEDS: NYSTATIN 500,000 UNIT/5 ML UDC 500000 UNIT PO ×4 (08:48→21:48)
[2022-12-13] MEDS: Magnesium Chloride 64 MG Delay Rel.Tablet 128 MG PO ×2 (08:49→21:49)
[2022-12-13] MEDS: Heparin Injection (Vial) 5,000 UNIT/ML VIAL 5000 UNIT SC ×2 (08:49→21:50)
[2022-12-13] MEDS: Menthol/Lanolin/Calamine/Znox 113 GM Tube 1 APPLIC TOPICAL ×2 (08:58→21:49)
[2022-12-13] MEDS: Sodium Chloride 1 GM Tablet 2 GM PO (10:31)
--- NOTE | 2022-12-13 10:53 | PCM.PROGNOTE ---
Subjective Subjective Afebrile VSS-systolic is mildly elevated but diastolics are always within normal limits. Maintaining appropriate oxygen saturation on RA Oral intake is good. Fluid intake yesterday was 1390. Discussed with nursing - no problems that need addressed Reviewed the PT/OT/ST notes Medication list reviewed. All lab from this morning it was personally reviewed. Hemoglobin is 9.8, down from 10.1 on 12/07/2022. Sodium is normal at 138 and the potassium is 4.0. BUN is 10 and the creatinine is stable at 0.44. Mag is low at 1.6. Calcium corrected for hypoalbuminemia is within normal limits. Sarah denies headache, lightheadedness, chest pain, shortness of breath, cough, nausea/vomiting/abdominal pain, dysuria and calf tenderness. She is afraid of falling and is always insisting she needs 2 people to get her up. She does not want to get out of bed at night to use the toilet at night and insists on the bed reese. Objective Data Objective Data Vital Signs: Vital Signs Temp Pulse Resp BP Pulse Ox O2 Del Method 97.7 F L 89 17 138/56 H 99 Room Air 12/13/22 08:13 12/13/22 08:13 12/13/22 08:13 12/13/22 08:13 12/13/22 08:13 12/13/22 08:13 Oxygen Delivery Method Room Air Weight: 129 lb 10.109 oz Body Mass Index (BMI) 27.9 Intake & Output: Intake and Output for Last 24 Hours 12/11/22 12/12/22 12/13/22 23:59 23:59 23:59 Intake Total 1170 / 1170 1390 / 1490 490 / 490 Output Total 610 / 610 635 / 845 430 / 430 Balance 560 / 560 755 / 645 60 / 60 Lab / Micro Data 12/13/22 05:15 12/16/22 05:37 Labs: Laboratory Results - last 24 hr 12/13/22 05:15: Hgb 9.8 L, Hct 29.1 L, Sodium 138, Potassium 4.0, Chloride 107, Carbon Dioxide 27.0, Anion Gap 4 L, BUN 10, Creatinine 0.44 L, Estim Creat Clear Calc 42.34, Est GFR (MDRD) Af Amer 179, Est GFR (MDRD) Non-Af 148, BUN/Creatinine Ratio 22.9 H, Glucose 106, Calcium 8.3 L, Magnesium 1.6 Micro: Microbiology 12/07/22 18:50 Stool C. difficile GDH Antigen & Toxins - Final 12/07/22 18:50 Stool C. difficile DNA Amplification - Final Physical Exam Const alert, oriented x3 and no apparent distress Constitutional Narrative: Talkative and pleasant. General Appearance: cooperative Resp clear to auscultation bilaterally Cardio regular rate and no gallops GI normal to inspection, nondistended, normoactive bowel sounds, soft to palpation and non-tender GI Narrative: No ectopy Extremity no calf tenderness General Extremity: Negative for edema Skin General Skin Exam: no breakdown Rashes: no rashes Wound Narrative: The scalp incision is intact with no dehiscence, no erythema and no discharge. There is still a very localized mushy swelling on the top of her head. No openings in the skin. It is not tender to light palpation. Neuro CN's II-XII intact bilaterally Neuro Narrative: Generalized weakness....improving. Assessment & Plan Assessment/Plan (1) Physical debility: (2) Scalp lesion: (3) H/O craniotomy: (4) Ischemic cerebrovascular accident (CVA): (5) Cerebrovascular disease: (6) Pulmonary hypertension: (7) Mitral stenosis: QUALIFIERS: Cardiac valve disease etiology: nonrheumatic Qualified Code(s): I34.2 - Nonrheumatic mitral (valve) stenosis (8) Acute blood loss anemia: (9) Hyponatremia: (10) Thrush: (11) C. difficile enteritis: PLAN: W/U negative. PLAN: Plan 1. Continue therapy 2. Decrease sodium chloride tabs to 2 g once daily 3. Recheck a BMP and magnesium on 4. Increase mag chloride to 128 mg twice daily 5. isolation precautions discontinue. Charges/Coding Visit Charges Inpatient E&M: 80934 Subs Hosp L2
[2022-12-13] MEDS: Ferrous Sulfate 325 MG Tablet PO (13:39)
[2022-12-13] MEDS: Ascorbic Acid 500 MG Tablet PO (13:39)
[2022-12-13 17:00] VITALS: BMI 27.9
--- NOTE | 2022-12-13 18:31 | NURSING ---
Thigh dressing changed, SHELBIE drain in place and draining well. Patient tolerated wound dressing fine w/ no complaints. Approx 55 cc of drainage removed today.
[2022-12-13 21:30] VITALS: PULSE 83; RESP 17; O2SAT 98
[2022-12-13] MEDS: Doxazosin 1 MG Tablet 2 MG PO (21:48)
[2022-12-13] MEDS: Atorvastatin Calcium 10 MG Tablet PO (21:48)
[2022-12-13 22:00] VITALS: BP 142/48; PULSE 83; RESP 17; TEMP 36.3; O2SAT 98; BMI 27.9
[2022-12-14 05:42] LABS: Magnesium 1.7 mg/dL (1.6-2.6)
[2022-12-14 07:51] VITALS: BP 137/63; PULSE 86; RESP 17; TEMP 36.6; O2SAT 97
[2022-12-14] MEDS: Carvedilol 12.5 MG Tablet PO ×2 (09:04→17:11)
[2022-12-14] MEDS: Sodium Chloride 1 GM Tablet 2 GM PO (10:23)
[2022-12-14] MEDS: Menthol/Lanolin/Calamine/Znox 113 GM Tube 1 APPLIC TOPICAL ×2 (10:23→21:55)
[2022-12-14] MEDS: Heparin Injection (Vial) 5,000 UNIT/ML VIAL 5000 UNIT SC ×2 (10:23→21:56)
[2022-12-14] MEDS: NYSTATIN 500,000 UNIT/5 ML UDC 500000 UNIT PO ×4 (10:23→21:55)
[2022-12-14] MEDS: Magnesium Chloride 64 MG Delay Rel.Tablet 128 MG PO ×2 (10:23→21:55)
[2022-12-14] MEDS: Ascorbic Acid 500 MG Tablet PO (11:53)
[2022-12-14] MEDS: Ferrous Sulfate 325 MG Tablet PO (11:53)
[2022-12-14 13:31] VITALS: BMI 27.9
[2022-12-14 19:30] VITALS: PULSE 82; RESP 16; BMI 27.9
[2022-12-14 19:57] VITALS: BP 144/48; PULSE 82; RESP 16; TEMP 36.6; O2SAT 98
[2022-12-14] MEDS: Doxazosin 1 MG Tablet 2 MG PO (21:55)
[2022-12-14] MEDS: Atorvastatin Calcium 10 MG Tablet PO (21:55)
[2022-12-15 07:59] VITALS: BP 134/73; PULSE 94; RESP 17; TEMP 37.2; O2SAT 97
[2022-12-15] MEDS: Carvedilol 12.5 MG Tablet PO ×3 (08:06→16:41)
[2022-12-15] MEDS: Heparin Injection (Vial) 5,000 UNIT/ML VIAL 5000 UNIT SC ×2 (08:06→20:45)
[2022-12-15] MEDS: Magnesium Chloride 64 MG Delay Rel.Tablet 128 MG PO ×2 (08:07→20:47)
[2022-12-15] MEDS: NYSTATIN 500,000 UNIT/5 ML UDC 500000 UNIT PO ×4 (10:08→20:45)
[2022-12-15] MEDS: Sodium Chloride 1 GM Tablet 2 GM PO (10:09)
[2022-12-15] MEDS: Menthol/Lanolin/Calamine/Znox 113 GM Tube 1 APPLIC TOPICAL ×2 (10:13→20:52)
[2022-12-15] MEDS: Ascorbic Acid 500 MG Tablet PO (13:43)
[2022-12-15] MEDS: Ferrous Sulfate 325 MG Tablet PO (13:43)
--- NOTE | 2022-12-15 15:21 | CHAPLAIN ---
Type of Pastoral Visit _x__ Initial Visit ___ Follow-up Visit ___ On-call Visit ___ General Patient Visit ___ Spiritual Assessment ___ Family Conference ___ Bereavement ___ Rapid Response ___ Code Blue ___ Other (describe below) Pastoral Care Referral From _x__ Patient ___ Family ___ Nurse ___ Physician ___ Medical Records Supervisor ___ Cementer Machine Applicator ___ Other (describe below) Sacrament/Intervention _x__ Active listening ___ Anointing ___ Confucianist ___ Bereavement ___ Communion ___ Analy exploration ___ _x__ Life review _x__ Prayer ___ Reconciliation ___ Sacrament of Sick _x__ Supportive presence ___ Wedding ___ Other (describe below) Pastoral Comments patient gives her health story and that of her recovery so far; pt states they say I am doing fine but it seems like a long time; pt talks about being closer to home and then gives some life review; pt has support from family and her bolt labeler/anglican; pt has clear goal of wanting to get home as soon as possible; pt welcomes prayer and is expressive of gratitude for visit and time given to sit with her
[2022-12-15 17:00] VITALS: BMI 27.9
[2022-12-15 18:55] VITALS: BP 156/54; PULSE 96; RESP 18; TEMP 36.8; O2SAT 96
[2022-12-15] MEDS: Atorvastatin Calcium 10 MG Tablet PO (20:48)
[2022-12-15 21:50] VITALS: BMI 27.9
[2022-12-15 22:00] VITALS: PULSE 84; RESP 15; O2SAT 96
[2022-12-15] MEDS: Doxazosin 1 MG Tablet 2 MG PO (22:41)
[2022-12-16 06:41] LABS: Anion Gap 4 (5-15); BUN 7 mg/dL (7-18); BUN/Creat Ratio 13.3 RATIO (10-20); Calcium,Total 8.8 mg/dL (8.5-10.1); Chloride 103 mmol/L (98-107); Creatinine, Serum 0.53 mg/dL (0.55-1.02); EST Glomerular Filtration Rate 119 mL/min (>60); Est Glom Filt Rate - Afr Amer 144 mL/min (>60); Estimated Creatinine Clearance 42.34 ml/min; Glucose 127 mg/dL (74-106); Potassium 4.2 mmol/L (3.5-5.1); Sodium Level 134 mmol/L (136-145)
[2022-12-16 07:55] VITALS: BP 155/51; PULSE 90; RESP 17; TEMP 36.6; O2SAT 97
[2022-12-16] MEDS: NYSTATIN 500,000 UNIT/5 ML UDC 500000 UNIT PO ×4 (08:23→21:02)
[2022-12-16] MEDS: Magnesium Chloride 64 MG Delay Rel.Tablet 128 MG PO ×2 (08:23→21:03)
[2022-12-16] MEDS: Menthol/Lanolin/Calamine/Znox 113 GM Tube 1 APPLIC TOPICAL ×2 (08:23→21:07)
[2022-12-16] MEDS: Heparin Injection (Vial) 5,000 UNIT/ML VIAL 5000 UNIT SC ×2 (08:23→21:02)
[2022-12-16] MEDS: Sodium Chloride 1 GM Tablet 2 GM PO (08:24)
[2022-12-16] MEDS: Carvedilol 12.5 MG Tablet PO ×2 (08:26→16:15)
[2022-12-16] MEDS: Ascorbic Acid 500 MG Tablet PO (11:57)
[2022-12-16] MEDS: Ferrous Sulfate 325 MG Tablet PO (11:58)
--- NOTE | 2022-12-16 12:22 | PN_ITS ---
Subjective Subjective Sarah was seen on team rounds today. Her daughter and her daughters friend were present in the room. All their questions were answered to their satisfaction. Afebrile VSS-systolic blood pressure is ranging from 137-156. Diastolics are always within normal limits. Maintaining appropriate oxygen saturation on RA Oral intake is good Discussed with nursing - no problems that need addressed Reviewed the PT/OT/ST notes Medication list reviewed. Sarah has been getting up in the chair more and is much more alert during the day. She requests the bedpan but, nursing is having her get up to use the toilet. She is ambulating longer distances. Her nurse got her up by herself this morning and Sarah is gaining some confidence that she is not going to fall. all lab from today was personally reviewed. Sodium is low at 134 and the potassium is 4.2. BUN is 7 with a creatinine of 0.53 and a BUN/creatinine ratio of 13.3. Sarah denies cephalgia, lightheadedness, vertigo, chest pain, shortness of breath, palpitations, dysuria and calf tenderness. Swelling in the extremities is much better with increased moving Objective Data Objective Data Vital Signs: Vital Signs Temp Pulse Resp BP Pulse Ox O2 Del Method 97.8 F 90 17 155/51 H 97 Room Air 12/16/22 07:55 12/16/22 07:55 12/16/22 07:55 12/16/22 07:55 12/16/22 07:55 12/16/22 07:55 Oxygen Delivery Method Room Air Weight: 129 lb 10.109 oz Body Mass Index (BMI) 27.9 Intake & Output: Intake and Output for Last 24 Hours 12/14/22 12/15/22 12/16/22 23:59 23:59 23:59 Intake Total 1160 / 1160 1920 / 2120 870 / 870 Output Total 1180 / 1180 630 / 630 905 / 905 Balance -20 / -20 1290 / 1490 -35 / -35 Lab / Micro Data 12/13/22 05:15 12/16/22 05:37 Labs: Laboratory Results - last 24 hr 12/16/22 05:37: Sodium 134 L, Potassium 4.2, Chloride 103, Carbon Dioxide 27.0, Anion Gap 4 L, BUN 7, Creatinine 0.53 L, Estim Creat Clear Calc 42.34, Est GFR (MDRD) Af Amer 144, Est GFR (MDRD) Non-Af 119, BUN/Creatinine Ratio 13.3, Glucose 127 H, Calcium 8.8 Micro: Microbiology 12/07/22 18:50 Stool C. difficile GDH Antigen & Toxins - Final 12/07/22 18:50 Stool C. difficile DNA Amplification - Final Physical Exam Const alert, oriented x3 and no apparent distress General Appearance: cooperative Orientation / Consciousness: Negative for confused HEENT moist oral mucous membranes Resp clear to auscultation bilaterally Cardio regular rate, regular rhythm and no gallops GI normal to inspection, nondistended, normoactive bowel sounds, soft to palpation and non-tender Extremity no calf tenderness Extremity Narrative: No pitting edema Assessment & Plan Assessment/Plan (1) Physical debility: (2) Scalp lesion: (3) H/O craniotomy: (4) Ischemic cerebrovascular accident (CVA): (5) Cerebrovascular disease: (6) Pulmonary hypertension: (7) Mitral stenosis: QUALIFIERS: Cardiac valve disease etiology: nonrheumatic Quali fied Code(s): I34.2 - Nonrheumatic mitral (valve) stenosis (8) Acute blood loss anemia: (9) Hyponatremia: (10) Thrush: (11) C. difficile enteritis: PLAN: W/U negative. PLAN: Plan 1. Continue therapy 2. Sodium decreased to 134 with decreasing salt tablets to twice daily from 3 times daily. This is acceptable. We will continue to monitor and when the sodium goes above 135 again will likely decrease salt tablets to once daily. 3. She is not to use the bedpan and is to continue to get up in the chair with meals. Charges/Coding Visit Charges Inpatient E&M: 91172 Subs Hosp L2
[2022-12-16 13:00] VITALS: BMI 27.9
--- NOTE | 2022-12-16 13:03 | CASEMGMT ---
Social Work IDT met with patient, dtr and friend for Team meeting. Discussed patient's progress in PT/OT/ST/SN. Educated to Medicare approval of 26 days with DC 01/01. DC plan unknown at this time. Home vs SNF. Encouraged pt to have more self-confidence and motivation. Will ReTeam next week to follow progress. Vanessa Zhao, MEDICAL CODING INSTRUCTOR [employer] OPERATIONS MANAGER
[2022-12-16 13:06] LABS: Magnesium 2.1 mg/dL (1.6-2.6)
[2022-12-16 19:29] VITALS: BP 134/80; PULSE 79; RESP 18; TEMP 36.7; O2SAT 95
[2022-12-16 20:15] VITALS: BMI 27.9
[2022-12-16] MEDS: Atorvastatin Calcium 10 MG Tablet PO (21:03)
[2022-12-16] MEDS: Doxazosin 1 MG Tablet 2 MG PO (21:03)
[2022-12-16 22:00] VITALS: PULSE 79; RESP 16; O2SAT 95
[2022-12-17 05:35] VITALS: BMI 26.3
[2022-12-17 08:07] VITALS: BP 136/72; PULSE 90; RESP 18; TEMP 36.4; O2SAT 99
[2022-12-17] MEDS: Carvedilol 12.5 MG Tablet PO ×2 (09:15→16:39)
[2022-12-17] MEDS: Magnesium Chloride 64 MG Delay Rel.Tablet 128 MG PO ×2 (09:41→20:43)
[2022-12-17] MEDS: Sodium Chloride 1 GM Tablet 2 GM PO (09:42)
[2022-12-17] MEDS: Menthol/Lanolin/Calamine/Znox 113 GM Tube 1 APPLIC TOPICAL ×2 (09:43→20:46)
[2022-12-17] MEDS: Heparin Injection (Vial) 5,000 UNIT/ML VIAL 5000 UNIT SC ×2 (09:43→20:41)
[2022-12-17] MEDS: Ferrous Sulfate 325 MG Tablet PO (12:38)
[2022-12-17] MEDS: Ascorbic Acid 500 MG Tablet PO (12:38)
[2022-12-17 17:00] VITALS: BMI 26.3
--- NOTE | 2022-12-17 18:44 | PCM.PROGNOTE ---
Subjective Subjective Afebrile VSS Maintaining appropriate oxygen saturation on RA Oral intake is good. Fluid intake is very good. Discussed with nursing - no problems that need addressed Reviewed the PT/OT/ST notes Medication list reviewed. No complaints today. The drain from the left thigh was removed today. The sutures in the skull will remain intact until she sees the plastic surgeon. Denies chest pain, cephalgia, night sweats, shaking chills, shortness of breath, cough and dysuria. Objective Data Objective Data Vital Signs: Vital Signs Temp Pulse Resp BP Pulse Ox O2 Del Method 97.6 F L 90 18 136/72 H 99 Room Air 12/17/22 08:07 12/17/22 08:07 12/17/22 08:07 12/17/22 08:07 12/17/22 08:07 12/17/22 08:07 Oxygen Delivery Method Room Air Weight: 121 lb 11.123 oz Body Mass Index (BMI) 26.3 Intake & Output: Intake and Output for Last 24 Hours 12/15/22 12/16/22 12/17/22 23:59 23:59 23:59 Intake Total 1920 / 2120 1350 / 1350 1670 / 1670 Output Total 630 / 630 1605 / 1605 1325 / 1325 Balance 1290 / 1490 -255 / -255 345 / 345 Lab / Micro Data 12/13/22 05:15 12/16/22 05:37 Micro: Microbiology 12/07/22 18:50 Stool C. difficile GDH Antigen & Toxins - Final 12/07/22 18:50 Stool C. difficile DNA Amplification - Final Physical Exam Const alert, oriented x3 and no apparent distress Constitutional Narrative: Very pleasant and talkative. Cooperating with everyone. Resp clear to auscultation bilaterally Cardio regular rate, regular rhythm and no gallops Cardio Narrative: No ectopy GI normal to inspection, nondistended, normoactive bowel sounds, soft to palpation and non-tender Extremity no calf tenderness General Extremity: Negative for edema Skin Skin Narrative: There is no longer any mushy swelling on the to of the head. There is no erythema and no discharge from the incision. The Left thigh is not red and does not have any swelling. Rashes: no rashes Assessment & Plan Assessment/Plan (1) Physical debility: (2) Scalp lesion: (3) H/O craniotomy: (4) Ischemic cerebrovascular accident (CVA): (5) Cerebrovascular disease: (6) Pulmonary hypertension: (7) Mitral stenosis: QUALIFIERS: Cardiac valve disease etiology: nonrheumatic Qualified Code(s): I34.2 - Nonrheumatic mitral (valve) stenosis (8) Acute blood loss anemia: (9) Hyponatremia: (10) Thrush: (11) C. difficile enteritis: PLAN: W/U negative. PLAN: Plan 1. Continue therapy 2. Check a sodium on Tuesday. Charges/Coding Visit Charges Inpatient E&M: 05170 Subs Hosp L1
[2022-12-17 19:35] VITALS: BP 142/77; PULSE 89; RESP 16; TEMP 36.2; O2SAT 97
[2022-12-17] MEDS: Atorvastatin Calcium 10 MG Tablet PO (20:42)
[2022-12-17] MEDS: Doxazosin 1 MG Tablet 2 MG PO (20:42)
[2022-12-17 22:00] VITALS: RESP 18; O2SAT 97
[2022-12-18 01:31] VITALS: BMI 26.3
[2022-12-18] MEDS: Magnesium Chloride 64 MG Delay Rel.Tablet 128 MG PO ×2 (07:57→21:09)
[2022-12-18] MEDS: Carvedilol 12.5 MG Tablet PO ×2 (07:57→16:28)
[2022-12-18] MEDS: Heparin Injection (Vial) 5,000 UNIT/ML VIAL 5000 UNIT SC ×2 (07:58→21:09)
[2022-12-18] MEDS: Menthol/Lanolin/Calamine/Znox 113 GM Tube 1 APPLIC TOPICAL ×2 (07:58→21:10)
[2022-12-18 08:00] VITALS: BP 125/46; PULSE 80; RESP 18; TEMP 36.5; O2SAT 97
[2022-12-18 10:18] VITALS: BMI 26.3
[2022-12-18] MEDS: Sodium Chloride 1 GM Tablet 2 GM PO (10:25)
[2022-12-18] MEDS: Ascorbic Acid 500 MG Tablet PO (12:31)
[2022-12-18] MEDS: Ferrous Sulfate 325 MG Tablet PO (12:31)
[2022-12-18] MEDS: Doxazosin 1 MG Tablet 2 MG PO (21:08)
[2022-12-18] MEDS: Atorvastatin Calcium 10 MG Tablet PO (21:09)
[2022-12-18 21:38] VITALS: BP 109/77; PULSE 90; RESP 16; TEMP 36.6; O2SAT 97
[2022-12-18 21:40] VITALS: RESP 16
[2022-12-19 04:25] VITALS: BMI 26.3
[2022-12-19] MEDS: Carvedilol 12.5 MG Tablet PO ×2 (08:16→16:38)
[2022-12-19] MEDS: Magnesium Chloride 64 MG Delay Rel.Tablet 128 MG PO ×2 (08:16→21:06)
[2022-12-19] MEDS: Heparin Injection (Vial) 5,000 UNIT/ML VIAL 5000 UNIT SC ×2 (08:17→21:06)
[2022-12-19] MEDS: Menthol/Lanolin/Calamine/Znox 113 GM Tube 1 APPLIC TOPICAL ×2 (08:21→21:07)
[2022-12-19 09:00] VITALS: BP 132/55; PULSE 91; RESP 16; TEMP 36.9; O2SAT 99
[2022-12-19] MEDS: Sodium Chloride 1 GM Tablet 2 GM PO (10:36)
[2022-12-19] MEDS: Ferrous Sulfate 325 MG Tablet PO (12:24)
[2022-12-19] MEDS: Ascorbic Acid 500 MG Tablet PO (12:24)
[2022-12-19 13:45] VITALS: BMI 26.3
[2022-12-19 21:00] VITALS: BP 130/52; PULSE 87; RESP 17; TEMP 36.7; O2SAT 97; BMI 26.3
[2022-12-19] MEDS: Atorvastatin Calcium 10 MG Tablet PO (21:06)
[2022-12-19] MEDS: Doxazosin 1 MG Tablet 2 MG PO (21:06)
[2022-12-20 06:30] LABS: Sodium Level 137 mmol/L (136-145)
[2022-12-20 07:49] VITALS: BP 143/54; PULSE 86; RESP 16; TEMP 36.9; O2SAT 98
[2022-12-20] MEDS: Carvedilol 12.5 MG Tablet PO ×2 (08:00→16:51)
[2022-12-20] MEDS: Magnesium Chloride 64 MG Delay Rel.Tablet 128 MG PO ×2 (08:00→22:27)
[2022-12-20] MEDS: Heparin Injection (Vial) 5,000 UNIT/ML VIAL 5000 UNIT SC ×2 (08:00→22:29)
[2022-12-20] MEDS: Menthol/Lanolin/Calamine/Znox 113 GM Tube 1 APPLIC TOPICAL ×2 (08:03→22:30)
[2022-12-20] MEDS: Sodium Chloride 1 GM Tablet 2 GM PO (09:55)
[2022-12-20] MEDS: Ferrous Sulfate 325 MG Tablet PO (11:57)
[2022-12-20] MEDS: Ascorbic Acid 500 MG Tablet PO (11:57)
--- NOTE | 2022-12-20 12:08 | PCM.PROGNOTE ---
Subjective Subjective Afebrile VSS Maintaining appropriate oxygen saturation on RA Oral intake is good Discussed with nursing - no problems that need addressed Reviewed the PT/OT/ST notes Medication list reviewed. Sarah has had a cough since admission to rehab. It is productive but, she is unable to expectorate any sputum. She denies ST, CP and SOB. She is c/o some pain in the R ear when her hearing aid is in. She has a little rhinorrhea/nasal congestion. She denies any hx of allergies or asthma. She denies shaking chills and night sweats. She has been afebrile. Objective Data Objective Data Vital Signs: Vital Signs Temp Pulse Resp BP Pulse Ox O2 Del Method 98.4 F 86 16 143/54 H 98 Room Air 12/20/22 07:49 12/20/22 07:49 12/20/22 07:49 12/20/22 07:49 12/20/22 07:49 12/20/22 07:49 Oxygen Delivery Method Room Air Weight: 121 lb 11.123 oz Body Mass Index (BMI) 26.3 Intake & Output: Intake and Output for Last 24 Hours 12/18/22 12/19/22 12/20/22 23:59 23:59 23:59 Intake Total 1220 / 1720 1400 / 1400 60 / 60 Output Total 1800 / 2200 1500 / 1500 Balance -580 / -480 -100 / -100 60 / 60 Lab / Micro Data 12/13/22 05:15 12/20/22 05:45 Labs: Laboratory Results - last 24 hr 12/20/22 05:45: Sodium 137 Micro: Microbiology 12/07/22 18:50 Stool C. difficile GDH Antigen & Toxins - Final 12/07/22 18:50 Stool C. difficile DNA Amplification - Final Physical Exam Const alert, oriented x3 and no apparent distress General Appearance: cooperative Orientation / Consciousness: Negative for confused HEENT HEENT Narrative: The bilateral external auditory canals are occluded with cerumen. There is no erythema of either canal. There is no pain with traction on the ear pinna. Resp Resp Narrative: Good air exchange, no conversational dyspnea. Clear posteriorly in all lung marti. Inspiratory and exp wheezing on the R anterior. The wheezing persisted despite a cough. The cough is loose and she is unable to expectorate sputum. Effort and Inspection: Negative for tachypneic or labored Cardio regular rate, regular rhythm and no gallops GI normal to inspection, nondistended, normoactive bowel sounds, soft to palpation and non-tender GI Narrative: No guarding with palpation Extremity no calf tenderness General Extremity: Negative for edema Skin General Skin Exam: no breakdown Rashes: no rashes Wound Narrative: The incision in the L thigh is intact and there is no magdaleno-incisional erythema or increased warmth to touch. There is some swelling in the upper lateral thigh but, it is progressively getting less. The drain was removed on Tuesday and when I squeeze the drain site there is a single drop of blood that was expressed. No fluctuance with palpation around the incision. The cranial incisions are intact with no magdaleno-incisional erythema, no discharge and no magdaleno-incisional swelling. There are some small scabs which are gradually being removed. Neuro CN's II-XII intact bilaterally, no focal motor deficits and no sensory deficits noted Psych cooperative and affect normal Assessment & Plan Assessment/Plan (1) Physical debility: (2) Scalp lesion: (3) H/O craniotomy: (4) Ischemic cerebrovascular accident (CVA): (5) Cerebrovascular disease: (6) Pulmonary hypertension: (7) Mitral stenosis: QUALIFIERS: Cardiac valve disease etiology: nonrheumatic Qualified Code(s): I34.2 - Nonrheumatic mitral (valve) stenosis (8) Acute blood loss anemia: (9) Hyponatremia: (10) Thrush: (11) C. difficile enteritis: (12) Excessive cerumen in both ear canals: PLAN: Plan 1. Continue therapy 2. PA and lateral chest x-ray today 3. Debrox eardrops into each ear nightly x5 days then will reexamine and if she still has wax will use ear candling to remove the wax. 4. Mucinex BID to thin the secretions. the cough is not keeping her awake at night so she will not need a cough suppressant. Charges/Coding Visit Charges Inpatient E&M: 70360 Subs Hosp L2
--- NOTE | 2022-12-20 12:40 | RAD_ITS ---
INDICATION: cough/wheezing EXAMINATION/TECHNIQUE: X-RAY - XR Chest 2 Views COMPARISON: FINDINGS: LINES/DEVICES: None. LUNGS: No consolidation, edema or effusion. No pneumothorax. MEDIASTINUM AND CARDIOVASCULAR STRUCTURES: Cardiac silhouette not enlarged. Central airways and mediastinal contour are unremarkable. BONES AND SOFT TISSUES: Unremarkable. RAD/Chest PA and Lateral IMPRESSION: No radiographic evidence of acute cardiopulmonary disease. Electronically Signed: Sukhdev Patel, at 12:51 EDT ,
[2022-12-20 13:05] VITALS: BMI 26.3
[2022-12-20 20:00] VITALS: BP 132/42; PULSE 90; RESP 16; TEMP 36.9; O2SAT 94; BMI 26.3
[2022-12-20] MEDS: Arthritis Pain Compound 60 CLICK TUBE TOPICAL (22:26)
[2022-12-20] MEDS: Doxazosin 1 MG Tablet 2 MG PO (22:28)
[2022-12-20] MEDS: Atorvastatin Calcium 10 MG Tablet PO (22:29)
[2022-12-20] MEDS: guaiFENesin 1,200 MG Tablet 1200 MG PO (22:29)
[2022-12-21] MEDS: Arthritis Pain Compound 60 CLICK TUBE TOPICAL ×3 (06:22→21:38)
[2022-12-21 07:59] VITALS: BP 123/56; PULSE 91; RESP 18; TEMP 36.6; O2SAT 97
[2022-12-21] MEDS: Heparin Injection (Vial) 5,000 UNIT/ML VIAL 5000 UNIT SC ×2 (08:55→21:35)
[2022-12-21] MEDS: Magnesium Chloride 64 MG Delay Rel.Tablet 128 MG PO ×2 (08:56→21:36)
[2022-12-21] MEDS: Carbamide Peroxide 15 ML Bottle OTIC (08:56)
[2022-12-21] MEDS: Carvedilol 12.5 MG Tablet PO ×2 (08:56→18:22)
[2022-12-21] MEDS: guaiFENesin 1,200 MG Tablet 1200 MG PO ×2 (11:58→21:35)
[2022-12-21] MEDS: Sodium Chloride 1 GM Tablet 2 GM PO (11:58)
[2022-12-21] MEDS: Menthol/Lanolin/Calamine/Znox 113 GM Tube 1 APPLIC TOPICAL ×2 (12:02→21:38)
--- NOTE | 2022-12-21 12:11 | PCM.PROGNOTE ---
Subjective Subjective Afebrile VSS Maintaining appropriate oxygen saturation on RA-94 to 97%. Oral intake is good Discussed with nursing - Night nursing thought she was coughing more last night and she slept poorly because of this. CXR yesterday showed no infiltrates. She did not like taking the Mucinex tablet because it was too big. Reviewed the PT/OT/ST notes Medication list reviewed. Sarah denies cephalgia, lightheadedness, vertigo, chest pain, palpitations, hemoptysis, nausea/vomiting/abdominal pain, dysuria and calf tenderness. She has been fearful and always wants someone to help her if she is out of bed. She has been up in the chair but, she is bed a lot of the day as well. Objective Data Objective Data Vital Signs: Vital Signs Temp Pulse Resp BP Pulse Ox O2 Del Method 97.9 F 91 18 123/56 H 97 Room Air 12/21/22 07:59 12/21/22 07:59 12/21/22 07:59 12/21/22 07:59 12/21/22 07:59 12/21/22 07:59 Oxygen Delivery Method Room Air Weight: 121 lb 11.123 oz Body Mass Index (BMI) 26.3 Intake & Output: Intake and Output for Last 24 Hours 12/19/22 12/20/22 12/21/22 23:59 23:59 23:59 Intake Total 1400 / 1400 1160 / 1160 300 / 300 Output Total 1500 / 1500 Balance -100 / -100 1160 / 1160 300 / 300 Lab / Micro Data 12/13/22 05:15 12/20/22 05:45 Micro: Microbiology 12/07/22 18:50 Stool C. difficile GDH Antigen & Toxins - Final 12/07/22 18:50 Stool C. difficile DNA Amplification - Final Radiography Diagnostic Testing: Radiology Impression Chest X-Ray 12/20/22 12:40 IMPRESSION: No radiographic evidence of acute cardiopulmonary disease. Electronically Signed: Sukhdev Patel, at 12:51 EDT , Physical Exam Const alert, oriented x3 and no apparent distress General Appearance: cooperative Resp normal respiratory effort, normal air movement and clear to auscultation bilaterally Effort and Inspection: Negative for tachypneic or labored Auscultation: Negative for rales or wheezes Cardio regular rate, regular rhythm and no gallops Cardio Narrative: No change in the heart murmur. GI normal to inspection, nondistended, normoactive bowel sounds, soft to palpation and non-tender GI Narrative: No guarding with palpation. Having regular bowel movements. Extremity no calf tenderness Extremity Narrative: She has lost about 15 lbs since admission. She was given Albumin 25GM and Lasix 20 mg IV X 1. She is moving much more now. General Extremity: Negative for edema Skin General Skin Exam: no breakdown Rashes: no rashes Wound Narrative: The left thigh incision is intact with no dehiscence, no magdaleno-incisional erythema, no purulent discharge. There is a small spot on the dressing that is serosanguineous. I could not express any DC from the drain site today. Psych cooperative and affect normal Assessment & Plan Assessment/Plan (1) Physical debility: (2) H/O craniotomy: (3) Ischemic cerebrovascular accident (CVA): (4) Cerebrovascular disease: (5) Pulmonary hypertension: (6) Mitral stenosis: QUALIFIERS: Cardiac valve disease etiology: nonrheumatic Qualified Code(s): I34.2 - Nonrheumatic mitral (valve) stenosis (7) Acute blood loss anemia: (8) Hyponatremia: (9) Thrush: (10) C. difficile enteritis: (11) Excessive cerumen in both ear canals: PLAN: Plan 1. Continue therapy 2. Start guaifenesin/DM as needed for cough which is keeping her up at night. Charges/Coding Visit Charges Inpatient E&M: 80376 Subs Hosp L2
[2022-12-21] MEDS: Ferrous Sulfate 325 MG Tablet PO (12:29)
[2022-12-21] MEDS: Ascorbic Acid 500 MG Tablet PO (12:29)
[2022-12-21 16:07] VITALS: BMI 26.3
[2022-12-21] MEDS: guaiFENesin Dm 10 ML UDC PO (18:47)
[2022-12-21 19:18] VITALS: BP 119/68; PULSE 80; RESP 18; TEMP 36.8; O2SAT 95
[2022-12-21 20:30] VITALS: BMI 26.3
[2022-12-21] MEDS: Doxazosin 1 MG Tablet 2 MG PO (21:36)
[2022-12-21] MEDS: Atorvastatin Calcium 10 MG Tablet PO (21:37)
[2022-12-22] MEDS: guaiFENesin Dm 10 ML UDC PO ×2 (01:00→10:18)
[2022-12-22 03:37] VITALS: BP 131/41; PULSE 92; RESP 18; TEMP 36.8; O2SAT 96
[2022-12-22] MEDS: Arthritis Pain Compound 60 CLICK TUBE TOPICAL ×3 (05:01→20:20)
[2022-12-22 08:11] VITALS: BP 131/41; PULSE 92; RESP 18; TEMP 36.8; O2SAT 96
[2022-12-22] MEDS: Sodium Chloride 1 GM Tablet 2 GM PO (09:15)
[2022-12-22] MEDS: Magnesium Chloride 64 MG Delay Rel.Tablet 128 MG PO ×2 (09:15→20:22)
[2022-12-22] MEDS: guaiFENesin 1,200 MG Tablet 1200 MG PO ×2 (10:18→20:23)
[2022-12-22] MEDS: Heparin Injection (Vial) 5,000 UNIT/ML VIAL 5000 UNIT SC ×2 (10:18→20:21)
[2022-12-22] MEDS: Carbamide Peroxide 15 ML Bottle OTIC (10:18)
[2022-12-22] MEDS: Menthol/Lanolin/Calamine/Znox 113 GM Tube 1 APPLIC TOPICAL ×2 (10:24→20:33)
[2022-12-22] MEDS: Ferrous Sulfate 325 MG Tablet PO (11:47)
[2022-12-22] MEDS: Carvedilol 12.5 MG Tablet PO ×2 (11:47→17:04)
[2022-12-22] MEDS: Ascorbic Acid 500 MG Tablet PO (11:53)
[2022-12-22 14:20] VITALS: BMI 26.3
[2022-12-22 19:24] VITALS: BP 121/45; PULSE 92; RESP 16; TEMP 36.7; O2SAT 97
[2022-12-22] MEDS: Doxazosin 1 MG Tablet 2 MG PO (20:21)
[2022-12-22] MEDS: Atorvastatin Calcium 10 MG Tablet PO (20:22)
[2022-12-22] MEDS: Senna/Docusate Sodium 1 Tablet 2 TABLET PO (20:23)
[2022-12-23] MEDS: Arthritis Pain Compound 60 CLICK TUBE TOPICAL ×2 (05:43→14:00)
[2022-12-23 07:32] VITALS: BP 101/46; PULSE 53; RESP 18; TEMP 36.4; O2SAT 97
[2022-12-23] MEDS: Sodium Chloride 1 GM Tablet 2 GM PO (08:17)
[2022-12-23] MEDS: Magnesium Chloride 64 MG Delay Rel.Tablet 128 MG PO (08:18)
[2022-12-23] MEDS: Senna/Docusate Sodium 1 Tablet 2 TABLET PO (08:19)
[2022-12-23] MEDS: guaiFENesin 1,200 MG Tablet 1200 MG PO (08:19)
[2022-12-23] MEDS: Heparin Injection (Vial) 5,000 UNIT/ML VIAL 5000 UNIT SC (08:19)
[2022-12-23] MEDS: Carvedilol 12.5 MG Tablet PO (08:19)
[2022-12-23] MEDS: Menthol/Lanolin/Calamine/Znox 113 GM Tube 1 APPLIC TOPICAL (08:20)
[2022-12-23] MEDS: Carbamide Peroxide 15 ML Bottle OTIC (08:20)
[2022-12-23] MEDS: Ascorbic Acid 500 MG Tablet PO (11:54)
[2022-12-23] MEDS: Ferrous Sulfate 325 MG Tablet PO (11:54)
--- NOTE | 2022-12-23 12:22 | PCM.PROGNOTE ---
Subjective Subjective Was seen on team rounds today. Her daughter was present in the room for rounds and so was Ashley, a family friend. All questions were answered. Afebrile VSS-heart rate has been in the 80s and 90s and this morning it is 53? Blood pressure is also low this morning at 101/46. There have been no changes in the drug regimen. She is on Coreg 12.5 mg twice daily. Maintaining appropriate oxygen saturation on RA Oral intake is good Her weight today is 121.7 pounds which is down from 134 pounds at admission due to diuresis. Discussed with nursing -night nursing reports that she is not sleeping well at night. Reviewed the PT/OT/ST notes Medication list reviewed. Sarah denies cephalgia, lightheadedness, vertigo, chest pain, shortness of breath, palpitations, nausea/vomiting/abdominal pain, dysuria and calf pain. She has a persistent cough however it is better with the Robitussin-DM. It is still nonproductive. Chest x-ray a few days ago showed no infiltrates, pulmonary vascular congestion or pleural effusions. Objective Data Objective Data Vital Signs: Vital Signs Temp Pulse Resp BP Pulse Ox O2 Del Method 97.5 F L 53 L 18 101/46 L 97 Room Air 12/23/22 07:32 12/23/22 07:32 12/23/22 07:32 12/23/22 07:32 12/23/22 07:32 12/23/22 07:32 Oxygen Delivery Method Room Air Weight: 121 lb 11.123 oz Body Mass Index (BMI) 26.3 Intake & Output: Intake and Output for Last 24 Hours 12/21/22 12/22/22 12/23/22 23:59 23:59 23:59 Intake Total 1700 / 1700 1150 / 1270 520 / 520 Output Total 300 / 300 600 / 600 400 / 400 Balance 1400 / 1400 550 / 670 120 / 120 Lab / Micro Data 12/13/22 05:15 12/20/22 05:45 Micro: Microbiology 12/07/22 18:50 Stool C. difficile GDH Antigen & Toxins - Final 12/07/22 18:50 Stool C. difficile DNA Amplification - Final Physical Exam Const alert, oriented x3 and no apparent distress General Appearance: cooperative Eyes PERRL and EOMs intact bilaterally Resp normal respiratory effort, normal air movement and clear to auscultation bilaterally Effort and Inspection: Negative for tachypneic or respiratory distress Cardio regular rate, regular rhythm and no gallops GI normal to inspection, nondistended, normoactive bowel sounds, soft to palpation and non-tender Extremity no calf tenderness General Extremity: Negative for edema Skin General Skin Exam: no breakdown Rashes: no rashes Psych affect normal Psych Narrative: She is still very fearful Assessment & Plan Assessment/Plan (1) Physical debility: (2) Scalp lesion: (3) H/O craniotomy: (4) Ischemic cerebrovascular accident (CVA): (5) Cerebrovascular disease: (6) Pulmonary hypertension: (7) Mitral stenosis: QUALIFIERS: Cardiac valve disease etiology: nonrheumatic Qualified Code(s): I34.2 - Nonrheumatic mitral (valve) stenosis (8) Acute blood loss anemia: (9) Hyponatremia: (10) Thrush: (11) C. difficile enteritis: (12) Excessive cerumen in both ear canals: PLAN: Plan 1. Continue therapy 2. Continue guaifenesin DM as needed for cough 3. We had a discussion about developing some independence and self-confidence show that when she goes home she will feel comfortable doing things herself. Her daughter will be with her /7 for as long as needed. 4. Recheck lab in the AM. It has now been over a month since the craniotomy so will start pharmacologic DVT prophylaxis in the AM. Charges/Coding Visit Charges Inpatient E&M: 30299 Subs Hosp L2
--- NOTE | 2022-12-23 13:05 | CASEMGMT ---
Social Work IDT met with patient, dtr and friend for Team meeting. Discussed patient's progress in PT/OT/ST/SN. Educated to Medicare DC 01/01. Pt is still having lack of confidence with doing tasks on her own. Dtr stated she will stay with pt at least the first week at home. SW offered HHC vs OP. Pt prefers HHC. Offered skilled HHC list with quality and resource data via [employer]. Printed and provided to dtr. Pt needs a FWW. Dtr to transport. SW faxed referral to [facility] [place]. Plan: DC home with dtr 01/01, HHC PT/OT/ST, FWW Vanessa Zhao, [employer]
[2022-12-23 14:39] VITALS: BMI 26.3
--- NOTE | 2022-12-23 16:38 | EKG12_ITS ---
Test Reason : afib Blood Pressure : / mmHG Vent. Rate : 149 BPM Atrial Rate : 000 BPM P-R Int : 000 ms QRS Dur : 076 ms QT Int : 260 ms P-R-T Axes : 000 029 259 degrees QTc Int : 409 ms Atrial fibrillation with rapid ventricular response Possible Inferior infarct , age undetermined Abnormal ECG Confirmed by LOLIS DEL VALLE, BROCK ([id number]), medical editor ARETHA GARCIA ([id number]) on 12/28/2022 7:20:33 AM Referred By: Jo-Ann Arias Confirmed By:BROCK DANIELLE MD
[2022-12-23 17:20] VITALS: BP 106/50; PULSE 79; RESP 16; TEMP 36.6; O2SAT 100
--- NOTE | 2022-12-23 17:44 | PCM.DC.SUM ---
Providers Date of Admission: 12/06/22 Date of Discharge: 12/23/22 Primary Care Physician: Dr. Monika Venegas MD Reason For Visit: STROKE Diagnosis Discharge Diagnosis (1) Physical debility: Status: Acute Code(s): R53.81 - Other malaise (2) H/O craniotomy: Status: Acute Code(s): Z98.890 - Other specified postprocedural states (3) Ischemic cerebrovascular accident (CVA): Status: Acute Code(s): I63.9 - Cerebral infarction, unspecified (4) Cerebrovascular disease: Status: Chronic Code(s): I67.9 - Cerebrovascular disease, unspecified (5) Pulmonary hypertension: Status: Chronic Code(s): I27.20 - Pulmonary hypertension, unspecified (6) Mitral stenosis: Status: Chronic Code(s): I05.0 - Rheumatic mitral stenosis Qualifiers: Cardiac valve disease etiology: nonrheumatic Qualified Code(s): I34.2 - Nonrheumatic mitral (valve) stenosis (7) Acute blood loss anemia: Status: Acute Code(s): D62 - Acute posthemorrhagic anemia (8) Hyponatremia: Status: Resolved Code(s): E87.1 - Hypo-osmolality and hyponatremia (9) Thrush: Status: Resolved Code(s): B37.0 - Candidal stomatitis (10) C. difficile enteritis: Status: Ruled-out Code(s): A04.72 - Enterocolitis due to Clostridium difficile, not specified as recurrent (11) Excessive cerumen in both ear canals: Status: Acute Code(s): H61.23 - Impacted cerumen, bilateral (12) Paroxysmal atrial fibrillation with rapid ventricular response: Status: Acute Code(s): I48.0 - Paroxysmal atrial fibrillation Plan 1. I notified Dr. Jacobo who is the admitting hospitalist and he will accept transfer of Anders to the progressive care unit for continuous telemetry monitoring and treatment of RVR. 2. I attempted to contact Alexsandra, her daughter, but she did not answer and I left a voicemail with my office and cell numbers and asked for her to call me. 3. She is asymptomatic at this time but she has not been on anticoagulation for DVT prophylaxis secondary to the craniotomy. she has been on TEDS and SCD's. Will likely need D Dimer and or CTA of the chest to r/o PE. She has no calf pain and no CP or SOB. Since it has been over a month since the surgery anticoagulation if necessary should be OK, neeraj DVT prophylaxis but, if she needs to be fully anticoagulated would discuss with the neurosurgeon who is Dr. Elfego Chopra at [facility]. 4. We will take her back on acute rehab when she is medically stable. She should continue to have PT/OT/ST while on PCU. Medications at Discharge Home Medications atenolol 50 mg tablet 50 mg PO DAILY blood pressure 07/05/18 atorvastatin 10 mg tablet 10 mg PO QHS cholesterol 07/05/18 hydrochlorothiazide 25 mg tablet 25 mg PO DAILY BP 07/05/18 multivitamin 1 tablet PO DAILY supplement 08/12/20 ascorbic acid 100 mg-elderberry fruit 50 mg chewable tablet 1 each PO DAILY supplement 08/14/20 calcium carbonate 500 mg-vitamin D3 15 mcg (600 unit) tablet 2 each PO DAILY supplement 08/14/20 cholecalciferol (vitamin D3) 125 mcg (5,000 unit) capsule 125 mcg PO DAILY supplement 08/14/20 cyanocobalamin (vitamin B-12) 500 mcg chewable tablet 1,000 mcg PO DAILY supplement 08/14/20 acetaminophen 325 mg tablet (Tylenol) 650 mg PO Q4H PRN pain 12/06/22 ascorbic acid (vitamin C) 500 mg tablet (C-500) 500 mg PO DAILY@1200 vitamin 12/06/22 carvedilol 12.5 mg tablet (Coreg) 12.5 mg PO BIDCM heart 12/06/22 cephalexin 500 mg capsule 500 mg PO Q12H atb 12/06/22 doxazosin 2 mg tablet (Cardura) 2 mg PO QHS heart 12/06/22 ferrous sulfate 325 mg (65 mg iron) tablet (Loly-Time) 325 mg PO DAILY@1200 iron 12/06/22 linezolid 600 mg tablet 600 mg PO Q12H atb 12/06/22 polyethylene glycol 3350 17 gram oral powder packet (Miralax) 17 g PO DAILY constipation 12/06/22 selenium 200 mcg capsule 200 mcg PO DAILY vitamin 12/06/22 sodium chloride 1,000 mg soluble tablet 2,000 mg PO BID vitamin 12/06/22 zinc sulfate 50 mg zinc (220 mg) capsule (Orazinc) 220 mg PO DAILY vitamin 12/06/22 Hospital Course Operations - (Craniectomy on 11/16/2022 with the excision of extensive meningioma by neurosurgery and plastics closure (flap muscle/myocutaneous/fasciocutaneous full-thickness skin graft of the scalp.) Procedures None Summary of Care Provided Minutes Spent on Discharge: 40 Hospital Course: ANDERS MCGUIRE, is a 77 YO F with a PMH of HTN, HLD and L intraosseous, 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 On 11/16/22. Postoperative course was complicated by a right thalamic/internal capsule CVA. She also had steroid induced hyperglycemia and hyponatremia. She is not diabetic and a HGBA1C was 5.4. Post op she was seen by PT/OT/ST and recommendation for acute inpt rehab at OR was made. Anders was transferred to the acute inpt rehab unit at [facility] on 12/06/22 for 3 hours of therapy daily to restore function/independence at or near her level prior to the surgery. 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 There was fairly extensive atherosclerosis contributing to multifocal severe stenoses including severe stenosis of the right carotid terminus, distal left supraclinoid internal carotid artery, focal severe stenosis of the proximal left M1 MCA and multifocal severe stenoses of the right A1 anterior communicating artery, right P1 posterior cerebellar artery and proximal left P2 [employer]. She had a acute infarct most notably involving the right thalamus and right cerebellar hemisphere. There were also a few other punctate foci elsewhere in both cerebral hemispheres. This may have been embolic. She has no hx of prior stroke or AF. the atria of ECHO were of normal size but she does have mitral stenosis and pulmonary hypertension. The EF was normal with no wall motion abnormalities. Lab at admission to rehab showed a hemoglobin of 10.1 which was down from 12.2 on 11/09/2022. Repeat hemoglobin on 12/13/2022 was stable at 9.8. The sodium was mildly decreased at 134 and she was on salt tablets which have been weaned down to 2 g once daily with a repeat sodium of 137 on the . Potassium was normal at 4.2 and magnesium was also normal. BUN was 14 with a creatinine of 0.39. Anders was doing quite well in rehab but developed a cough on 12/20/2022. She also had some rhinorrhea and postnasal discharge. Auscultation of the lungs revealed mild wheezing on the right anteriorly. She had no crackles and she had no shortness of breath and no tachypnea. Chest x-ray was obtained and showed no infiltrate, pleural effusions or pulmonary vascular congestion. She was started on Mucinex but continued to have a cough that kept her awake at night so she was changed to guaifenesin/dextromethorphan as needed. When I was listening to her lungs in the evening on 12/24/2022 they were clear to auscultation but when I listen to her heart the heart rate was rapid and irregular. EKG confirmed atrial fibrillation with rapid ventricular response. Anders denies shortness of breath, palpitations, lightheadedness, chest pain and calf pain. She was totally asymptomatic however we have no telemetry on rehab so I discussed the case with Dr. Jacobo who was the admitting hospitalist. He agreed to accept transfer of Anders to PCU. I called her dtr Alexsandra but, there was no answer so I left a VM asking her to call me and left my office and cell numbers. anders has been doing quite well in therapy and her strength has improved considerably. she will need to continue PT/OT/ST while on PCU. she has not been on pharmacologic DVT prophylaxis since she had an extensive resection of a meningioma with involvement of the skull. Since it has been greater than 1 month since her surgery she is likely able to start DVT prophylaxis. We will likely need to rule out pulmonary embolus since she has only been on SCDs and TORSTEN hose but she is totally asymptomatic so I do not suspect she has had a PE. If the CTA is positive would call Dr. Elfego Painter to [place] full dose anticoagulation prior to starting the medication. The sutures from the plastics closure are still in place and are not to be removed until she shes the plastic surgeon in January. The sutures and drain from the left lower extremity were removed and there is no discharge from the leg and no magdaleno-incisional erythema, dehiscence or increased warmth to touch. Anders will come back to acute rehab after she is medically stable. Physical Exam Const alert, oriented x3 and no apparent distress General Appearance: cooperative Orientation / Consciousness: Negative for confused Eyes PERRL and EOMs intact bilaterally Neck supple Resp normal respiratory effort, normal air movement and clear to auscultation bilaterally Resp Narrative: Very good air exchange. She is not tachypneic and respirations are not labored. She has had no hemoptysis with her cough. Cardio Cardio Narrative: She is tachycardic with an irregular rhythm and EKG showed atrial fibrillation with a heart rate of 151. QT is not prolonged. There is no ST elevation and no significant ST segment depression. She has a systolic murmur at the second right intercostal space that radiates to the lower left sternal border and apex. There is also a systolic murmur in the left axillary area. The murmur has not changed since admission to acute rehab. GI normal to inspection, nondistended, normoactive bowel sounds, soft to palpation and non-tender GI Narrative: No guarding with palpation Extremity no calf tenderness General Extremity: Negative for edema Skin General Skin Exam: no breakdown Rashes: no rashes Wound Narrative: The craniotomy wound with plastics closure is healing well with no discharge, no dehiscence and no magdaleno-incisional swelling or erythema. Neuro CN's II-XII intact bilaterally Neuro Narrative: She is moving all extremities. There are no focal motor deficits and no sensory deficits. She has generalized weakness which has improved significantly since admission. No visual field cuts, no neglect and no extinction. Psych affect normal Weight / BMI Weight Weight: 121 lb 11.123 oz Body Mass Index (BMI) 26.3 ABG / Lab / Microbiology Data 12/13/22 05:15 12/20/22 05:45 Microbiology: Microbiology 12/07/22 18:50 Stool C. difficile GDH Antigen & Toxins - Final 12/07/22 18:50 Stool C. difficile DNA Amplification - Final Meaningful Use Info Meaningful Use Diagnoses (Choose all that apply): Ischemic CVA CVA Therapy Assessed for PT,OT and/or ST?: Yes Ischemic Stroke Antithrombotic order at d/c?: No Reason antithrombotic not ordered: Medical Contraindication (Recent extensive craniotomy with plastic surgery closure to remove large meningioma with involvement of the skull. She also had a drain in the left thigh with a incision where the graft was taken.) Dx of Atrial fib/flutter?: Yes Anticoagulant at discharge?: No Reason anticoagulant not ordered: Treatment not Indicated (She just today had new onset of atrial fibrillation with rapid ventricular response but is asymptomatic. Anticoagulation will be addressed after pulmonary embolism is ruled out. At this point in time she would be able to have pharmacologic DVT prophylaxis.) Statins at discharge?: Yes Primary Dx Acute Ischemic CVA?: Yes IV thrombolytic ordered during stay?: No Reason IV thrombolytic not ordered: Treatment not Indicated Discharge Plan Admission Admit Date/Time: 12/06/22 18:30 Attending Provider: Jo-Ann Arias Primary Care Provider: Monika Venegas Discharge Orders/Prescriptions Prescriptions: No Action multivitamin Tablet 1 tablet PO DAILY hydrochlorothiazide 25 MG tablet 25 mg PO DAILY atenolol 50 tablet 50 mg PO DAILY atorvastatin 10 MG tablet 10 mg PO QHS calcium carbonate-vitamin D3 1 EACH tablet 2 each PO DAILY cyanocobalamin (vitamin B-12) 500 MCG tablet,chewable 1,000 mcg PO DAILY ascorbic acid-elderberry fruit 1 EACH tablet,chewable 1 each PO DAILY cholecalciferol (vitamin D3) 125 MCG capsule 125 mcg PO DAILY acetaminophen [Tylenol] 325 mg tablet 650 mg PO Q4H PRN (Reason: pain) ascorbic acid (vitamin C) [C-500] 500 mg tablet 500 mg PO DAILY@1200 carvedilol [Coreg] 12.5 mg tablet 12.5 mg PO BIDCM Rx Instructions: must administer with a meal/food cephalexin 500 mg capsule 500 mg PO Q12H doxazosin [Cardura] 2 mg tablet 2 mg PO QHS Rx Instructions: hold if systolic BP less than 110 ferrous sulfate [Loly-Time] 325 mg (65 mg iron) tablet 325 mg PO DAILY@1200 linezolid 600 mg tablet 600 mg PO Q12H polyethylene glycol 3350 [Miralax] 17 gram powder in packet 17 g PO DAILY selenium 200 mcg capsule 200 mcg PO DAILY sodium chloride 1,000 mg tablet,soluble 2,000 mg PO BID zinc sulfate [Orazinc] 50 mg zinc (220 mg) capsule 220 mg PO DAILY Referrals / Follow Up: Tali Yo [Other] - 01/10/23 1:15 pm ([facility] [id number] ) flavia turcios [Other] - 01/06/23 1:30 pm (virtual phone appointment ) CT,SCAN [Other] - 01/02/23 12:30 pm (CT Scan @ [facility] ) Monika Venegas MD [Primary Care Provider] - Disposition Disposition (needs filled in before D/C Order can be placed): Home Health Service Charges/Coding Visit Charges Inpatient E&M: 95428 Disch Hosp >30min
[2022-12-23 17:53] VITALS: BMI 26.3
[2022-12-24 15:24] VITALS: BP 135/49; PULSE 87; RESP 18; TEMP 36.7; O2SAT 95
--- NOTE | 2022-12-24 15:30 | PCM.PROGNOTE ---
Subjective Subjective Sarah returned from the progressive care unit today. She is in normal sinus rhythm and on Cardizem and amiodarone. The beta-bright was discontinued for a low blood pressure. I spoke to Dr. Kincaid, the neurosurgeon who performed Sarah's craniotomy, and he was okay with starting anticoagulation for PAF if a CT scan revealed no bleeding in the head. The CT showed no intracranial hemorrhage. She was started on Eliquis 2.5 mg BID.......if the creat clear is > 30 on Mondays lab and the H/H is stable will increase the dose to 5 mg BID I reviewed the med list she was discharged on. She is now on Amiodarone. VSS She is maintaining appropriate oxygen saturation on room air. Alert, oriented x3, no apparent distress Lungs-clear to auscultation throughout with excellent air exchange Heart-regular rate and rhythm, no gallop Abdomen-soft, nontender, nondistended, no guarding with palpation, normal bowel sounds heard No peripheral edema, no calf tenderness Impressions 1. Debility secondary to recent craniotomy for resection of a large invasive meningioma. 2. Postoperative ischemic CVA with multiple small foci in both cerebral hemispheres-suspect embolic. Since we now have documented atrial fibrillation we will anticoagulate 3. Generalized weakness Readmit to acute rehab and continue therapy. Objective Data Objective Data Vital Signs: Vital Signs Temp Pulse Resp BP Pulse Ox O2 Del Method 98.1 F 87 18 135/49 H 95 Room Air 12/24/22 15:24 12/24/22 15:24 12/24/22 15:24 12/24/22 15:24 12/24/22 15:24 12/24/22 15:24 Oxygen Delivery Method Room Air Weight: 121 lb 11.123 oz Body Mass Index (BMI) 26.3 Intake & Output: Intake and Output for Last 24 Hours 12/22/22 12/23/22 12/24/22 23:59 23:59 23:59 Intake Total 1150 / 1270 640 / 640 Output Total 600 / 600 400 / 400 Balance 550 / 670 240 / 240 Lab / Micro Data 12/13/22 05:15 12/27/22 05:40 Micro: Microbiology 12/07/22 18:50 Stool C. difficile GDH Antigen & Toxins - Final 12/07/22 18:50 Stool C. difficile DNA Amplification - Final Charges/Coding Visit Charges Inpatient E&M: 23982 Subs Hosp L2
[2022-12-24] MEDS: Carvedilol 12.5 MG Tablet PO ×2 (17:55→20:06)
[2022-12-24 19:52] VITALS: BP 138/52; PULSE 79; RESP 16; TEMP 36.7; O2SAT 95
[2022-12-24 19:53] VITALS: PULSE 80
[2022-12-24] MEDS: Arthritis Pain Compound 60 CLICK TUBE TOPICAL (22:43)
[2022-12-24] MEDS: APIXABAN 2.5 MG TABLET (WCH) PO (22:44)
[2022-12-24] MEDS: Atorvastatin Calcium 10 MG Tablet PO (22:45)
[2022-12-24] MEDS: Doxazosin 1 MG Tablet 2 MG PO (22:46)
[2022-12-25 03:04] VITALS: BMI 26.3
[2022-12-25] MEDS: Arthritis Pain Compound 60 CLICK TUBE TOPICAL ×3 (06:01→21:42)
[2022-12-25] MEDS: Multivitamins,Therapeutic Tablet 1 TABLET PO (07:50)
[2022-12-25] MEDS: Carvedilol 12.5 MG Tablet PO ×2 (07:50→16:39)
[2022-12-25 08:00] VITALS: BP 110/72; PULSE 80; RESP 16; TEMP 36.9; O2SAT 96
[2022-12-25] MEDS: Cyanocobalamin 500 MCG Tablet 1000 MCG PO (09:09)
[2022-12-25] MEDS: Calcium Carb/Vitamin D 1 TABLET Tablet PO (09:09)
[2022-12-25] MEDS: Amiodarone 200 MG Tablet PO (09:09)
[2022-12-25] MEDS: APIXABAN 2.5 MG TABLET (WCH) PO ×2 (09:09→21:46)
[2022-12-25] MEDS: Ferrous Sulfate 325 MG Tablet PO (12:07)
[2022-12-25] MEDS: Ascorbic Acid 500 MG Tablet PO (12:07)
[2022-12-25 12:37] VITALS: BMI 26.3
[2022-12-25 19:56] VITALS: BP 131/51; PULSE 78; RESP 17; TEMP 36.6; O2SAT 97
[2022-12-25 20:15] VITALS: BMI 26.3
[2022-12-25] MEDS: Atorvastatin Calcium 10 MG Tablet PO (21:44)
[2022-12-25] MEDS: Doxazosin 1 MG Tablet 2 MG PO (21:45)
[2022-12-26] MEDS: Arthritis Pain Compound 60 CLICK TUBE TOPICAL ×3 (06:01→20:15)
[2022-12-26] MEDS: Multivitamins,Therapeutic Tablet 1 TABLET PO (07:34)
[2022-12-26] MEDS: Carvedilol 12.5 MG Tablet PO ×2 (07:34→16:20)
[2022-12-26] MEDS: Calcium Carb/Vitamin D 1 TABLET Tablet PO (07:34)
[2022-12-26] MEDS: Amiodarone 200 MG Tablet PO (07:34)
[2022-12-26 08:55] VITALS: BP 119/54; PULSE 83; RESP 16; TEMP 36.3; O2SAT 98
[2022-12-26] MEDS: Cyanocobalamin 500 MCG Tablet 1000 MCG PO (09:53)
[2022-12-26] MEDS: APIXABAN 2.5 MG TABLET (WCH) PO ×2 (09:53→20:16)
[2022-12-26 10:47] VITALS: BMI 26.3
[2022-12-26] MEDS: Ascorbic Acid 500 MG Tablet PO (12:54)
[2022-12-26] MEDS: Ferrous Sulfate 325 MG Tablet PO (12:54)
[2022-12-26 19:06] VITALS: BP 134/58; PULSE 82; RESP 16; TEMP 35.9; O2SAT 97
[2022-12-26] MEDS: Doxazosin 1 MG Tablet 2 MG PO (20:15)
[2022-12-26] MEDS: Atorvastatin Calcium 10 MG Tablet PO (20:16)
[2022-12-26 20:33] VITALS: O2SAT 97
[2022-12-27 00:03] VITALS: BMI 26.3
[2022-12-27] MEDS: Arthritis Pain Compound 60 CLICK TUBE TOPICAL ×3 (05:14→20:15)
[2022-12-27 06:38] LABS: Anion Gap 4 (5-15); BUN 14 mg/dL (7-18); BUN/Creat Ratio 26.9 RATIO (10-20); Calcium,Total 8.8 mg/dL (8.5-10.1); Chloride 106 mmol/L (98-107); Creatinine, Serum 0.52 mg/dL (0.55-1.02); EST Glomerular Filtration Rate 121 mL/min (>60); Est Glom Filt Rate - Afr Amer 146 mL/min (>60); Estimated Creatinine Clearance 39.75 ml/min; Glucose 123 mg/dL (74-106); Magnesium 1.7 mg/dL (1.6-2.6); Potassium 4.2 mmol/L (3.5-5.1); Sodium Level 137 mmol/L (136-145)
[2022-12-27 07:10] VITALS: BP 150/58; PULSE 88; RESP 16; TEMP 36.7; O2SAT 97
[2022-12-27] MEDS: Carvedilol 12.5 MG Tablet PO ×2 (08:05→17:02)
[2022-12-27] MEDS: Multivitamins,Therapeutic Tablet 1 TABLET PO (08:05)
[2022-12-27] MEDS: Amiodarone 200 MG Tablet PO (08:05)
[2022-12-27] MEDS: APIXABAN 2.5 MG TABLET (WCH) PO (08:06)
[2022-12-27 08:15] VITALS: BMI 26.3
[2022-12-27] MEDS: Cyanocobalamin 500 MCG Tablet 1000 MCG PO (11:07)
[2022-12-27] MEDS: Calcium Carb/Vitamin D 1 TABLET Tablet PO (11:08)
--- NOTE | 2022-12-27 12:20 | PCM.PROGNOTE ---
Subjective Subjective Afebrile VSS - no more low BP's. HR is regular and in the 80's. Maintaining appropriate oxygen saturation on RA Oral intake is good Discussed with nursing - no problems that need addressed Reviewed the PT/OT/ST notes Medication list reviewed. All lab today was personally reviewed. Sodium is 137 and the potassium is 4.2. The BUN is 14 with a creatinine of 0.52 which is stable. Creatinine clearance is 40. Magnesium is borderline low at 1.7. Hemoglobin is stable at 9.7 and the white blood cell count is within normal limits. Platelets are within normal limits. Sarah is somewhat tearful today because she does not feel that she is making enough progress. I told her she has made excellent progress and her strength has significantly improved. She is ambulating well now with a WW and no LOB. Sarah is generally a fearful person without a lot of self confidence. I reinforced that she is giving us her best and that she will be able to go home on the with some assistance from her dtr. She needs a lot of reassurance. She denies cephalgia, changes in vision, vertigo, neck stiffness, chest pain, palpitations, lightheadedness, shortness of breath, cough, nausea/vomiting/abdominal pain, constipation, dysuria and calf pain. Objective Data Objective Data Vital Signs: Vital Signs Temp Pulse Resp BP Pulse Ox O2 Del Method 98.0 F 88 16 150/58 H 97 Room Air 12/27/22 07:10 12/27/22 07:10 12/27/22 07:10 12/27/22 07:10 12/27/22 07:10 12/27/22 07:10 Oxygen Delivery Method Room Air Weight: 121 lb 11.123 oz Body Mass Index (BMI) 26.3 Intake & Output: Intake and Output for Last 24 Hours 12/25/22 12/26/22 12/27/22 23:59 23:59 23:59 Intake Total 1080 / 1080 1160 / 1400 600 / 600 Output Total 1000 / 1600 1125 / 1125 Balance 1080 / 1080 160 / -200 -525 / -525 Lab / Micro Data 12/13/22 05:15 12/27/22 05:40 Labs: Laboratory Results - last 24 hr 12/27/22 05:40: Sodium 137, Potassium 4.2, Chloride 106, Carbon Dioxide 27.0, Anion Gap 4 L, BUN 14, Creatinine 0.52 L, Estim Creat Clear Calc 39.75, Est GFR (MDRD) Af Amer 146, Est GFR (MDRD) Non-Af 121, BUN/Creatinine Ratio 26.9 H, Glucose 123 H, Calcium 8.8, Magnesium 1.7 Micro: Microbiology 12/07/22 18:50 Stool C. difficile GDH Antigen & Toxins - Final 12/07/22 18:50 Stool C. difficile DNA Amplification - Final Physical Exam Const alert, oriented x3 and no apparent distress General Appearance: cooperative Orientation / Consciousness: Negative for confused Resp normal respiratory effort and clear to auscultation bilaterally Effort and Inspection: Negative for tachypneic or labored Cardio regular rate, regular rhythm and no gallops Cardio Narrative: No ectopy GI normal to inspection, nondistended, normoactive bowel sounds, soft to palpation and non-tender GI Narrative: No guarding with palpation Extremity no calf tenderness General Extremity: Negative for edema Skin General Skin Exam: no breakdown Rashes: no rashes Wound Narrative: The sutures in the scalp are intact with no dehiscence, no discharge and no magdaleno-incisional swelling. There is also no magdaleno-incisional erythema. Sutures will be removed by the plastic surgeon at her appt next week. Neuro CN's II-XII intact bilaterally Speech: speech normal Psych affect normal Psych Narrative: low self esteem and poor self confidence. Appearance: appropriate Assessment & Plan Assessment/Plan (1) Physical debility: (2) H/O craniotomy: (3) Ischemic cerebrovascular accident (CVA): (4) Cerebrovascular disease: (5) Paroxysmal atrial fibrillation: (6) Pulmonary hypertension: (7) Mitral stenosis: QUALIFIERS: Cardiac valve disease etiology: nonrheumatic Qualified Code(s): I34.2 - Nonrheumatic mitral (valve) stenosis (8) Acute blood loss anemia: (9) Hyponatremia: (10) Thrush: (11) C. difficile enteritis: (12) Excessive cerumen in both ear canals: (13) High cholesterol: (14) HTN (hypertension): QUALIFIERS: Hypertension type: primary hypertension Qualified Code(s): I10 - Essential (primary) hypertension PLAN: Plan 1. Continue therapy 2. Supplement Mag to keep the Mag at 2 or > in light of recent PAF. Keep the K at 4. 3. Increase the Eliquis to 5 mg BID 4. Assured her that we know she is doing her best and that she has made excellent progress since admission to rehab. 5. Recheck a BMP, HH and a Mag at the end of the week. Charges/Coding Visit Charges Inpatient E&M: 58084 Subs Hosp L2
[2022-12-27] MEDS: Ferrous Sulfate 325 MG Tablet PO (12:27)
[2022-12-27] MEDS: Ascorbic Acid 500 MG Tablet PO (12:27)
--- NOTE | 2022-12-27 14:56 | CASEMGMT ---
Addendum entered by Vanessa Zhao 12/27/22 15:11: SW spoke with [employer] and they are drop shipping the walker to the pt's home. SW updated dtr. Original Note: Social Work SW phoned dtr to follow up on confirming DC plans for 01/[address] [facility] agencies. Dtr prefers [facility]. SW phoned referral for PT/OT/[facility] sent email to f/u with [employer] on FWW. Dtr to transport. Plan: DC home with dtr assistance 01/01, [facility] PT/OT/ST, [facility] Vanessa Zhao, [employer]PERATOR [employer]CH[employer]IC
[2022-12-27 15:24] VITALS: BMI 28.8
[2022-12-27 19:06] VITALS: BP 131/49; PULSE 75; RESP 16; TEMP 36.9; O2SAT 99
[2022-12-27] MEDS: Doxazosin 1 MG Tablet 2 MG PO (20:15)
[2022-12-27] MEDS: APIXABAN 5 MG TABLET PO (20:16)
[2022-12-27] MEDS: Atorvastatin Calcium 10 MG Tablet PO (20:17)
[2022-12-27] MEDS: Magnesium Chloride 64 MG Delay Rel.Tablet 128 MG PO (20:17)
[2022-12-27 21:12] VITALS: O2SAT 99
[2022-12-28 03:04] VITALS: BMI 28.8
[2022-12-28] MEDS: Arthritis Pain Compound 60 CLICK TUBE TOPICAL ×3 (05:50→20:25)
[2022-12-28 07:13] VITALS: BP 134/67; PULSE 83; RESP 16; TEMP 36.4; O2SAT 97
[2022-12-28] MEDS: Multivitamins,Therapeutic Tablet 1 TABLET PO (08:57)
[2022-12-28] MEDS: Magnesium Chloride 64 MG Delay Rel.Tablet 128 MG PO ×2 (08:57→20:28)
[2022-12-28] MEDS: Carvedilol 12.5 MG Tablet PO ×2 (08:57→17:09)
[2022-12-28] MEDS: Calcium Carb/Vitamin D 1 TABLET Tablet PO (08:57)
[2022-12-28] MEDS: Amiodarone 200 MG Tablet PO (08:57)
[2022-12-28] MEDS: APIXABAN 5 MG TABLET PO ×2 (08:58→20:28)
[2022-12-28] MEDS: Cyanocobalamin 500 MCG Tablet 1000 MCG PO (08:58)
[2022-12-28] MEDS: Ascorbic Acid 500 MG Tablet PO (12:18)
[2022-12-28] MEDS: Ferrous Sulfate 325 MG Tablet PO (12:18)
[2022-12-28 16:33] VITALS: BMI 28.8
[2022-12-28 19:34] VITALS: BP 97/61; PULSE 74; RESP 16; TEMP 36.6; O2SAT 95
[2022-12-28 20:20] VITALS: BMI 28.8
[2022-12-28] MEDS: Atorvastatin Calcium 10 MG Tablet PO (20:28)
[2022-12-29] MEDS: Arthritis Pain Compound 60 CLICK TUBE TOPICAL ×3 (05:06→20:35)
[2022-12-29] MEDS: Cyanocobalamin 500 MCG Tablet 1000 MCG PO (07:44)
[2022-12-29] MEDS: Magnesium Chloride 64 MG Delay Rel.Tablet 128 MG PO ×2 (07:44→20:37)
[2022-12-29] MEDS: APIXABAN 5 MG TABLET PO ×2 (07:44→20:36)
[2022-12-29] MEDS: Carvedilol 12.5 MG Tablet PO ×2 (07:44→17:16)
[2022-12-29] MEDS: Calcium Carb/Vitamin D 1 TABLET Tablet PO (07:45)
[2022-12-29] MEDS: Multivitamins,Therapeutic Tablet 1 TABLET PO (07:45)
[2022-12-29] MEDS: Amiodarone 200 MG Tablet PO (07:45)
[2022-12-29 07:46] VITALS: BP 141/51; PULSE 75; RESP 16; TEMP 36.5; O2SAT 98
[2022-12-29] MEDS: Acetaminophen 325 MG Tablet 650 MG PO ×3 (08:07→21:37)
[2022-12-29] MEDS: Ascorbic Acid 500 MG Tablet PO (12:21)
[2022-12-29] MEDS: Ferrous Sulfate 325 MG Tablet PO (12:21)
--- NOTE | 2022-12-29 16:52 | PCM.PROGNOTE ---
Subjective Subjective Afebrile VSS Maintaining appropriate oxygen saturation on RA Oral intake is good Discussed with nursing - no problems that need addressed Reviewed the PT/OT/ST notes - She needs a lot of cajoling to attempt things with therapy without them having their hands on her. Poor self confidence. Medication list reviewed. Sarah denies lightheadedness, vertigo, CP, SOB at rest, SOB with exertion, cough, nausea, vomiting, abd pain, diarrhea, constipation, dysuria, calf pain and ankle swelling. Objective Data Objective Data Vital Signs: Vital Signs Temp Pulse Resp BP Pulse Ox O2 Del Method 97.7 F L 75 16 141/51 H 98 Room Air 12/29/22 07:46 12/29/22 07:46 12/29/22 07:46 12/29/22 07:46 12/29/22 07:46 12/29/22 07:46 Oxygen Delivery Method Room Air Weight: 127 lb 13.89 oz Body Mass Index (BMI) 28.8 Intake & Output: Intake and Output for Last 24 Hours 12/27/22 12/28/22 12/29/22 23:59 23:59 23:59 Intake Total 1300 / 1540 2080 / 2080 780 / 780 Output Total 1125 / 1925 1350 / 1350 Balance 175 / -385 730 / 730 780 / 780 Lab / Micro Data 12/13/22 05:15 12/27/22 05:40 Micro: Microbiology 12/07/22 18:50 Stool C. difficile GDH Antigen & Toxins - Final 12/07/22 18:50 Stool C. difficile DNA Amplification - Final Physical Exam Const alert, oriented x3 and no apparent distress Constitutional Narrative: Has been spending more time up in the chair. Nursing is having her get up from the bed at [facility] and she is able to do it without any assistance. General Appearance: cooperative Orientation / Consciousness: Negative for confused Resp normal respiratory effort, normal air movement and clear to auscultation bilaterally Cardio regular rate, regular rhythm and no gallops GI normal to inspection, nondistended, normoactive bowel sounds, soft to palpation and non-tender GI Narrative: No guarding with palpation. Regular bowel movements. Extremity no calf tenderness General Extremity: Negative for edema Skin General Skin Exam: no breakdown Rashes: no rashes Wound Narrative: The scalp incisions are intact with no dehiscence, no magdaleno-incisional erythema or swelling and no fluctuant areas. Sutures remain in and will not be removed until she sees the plastic surgeon in follow-up post discharge from acute rehab. Neuro CN's II-XII intact bilaterally, no focal motor deficits and no sensory deficits noted Psych cooperative and affect normal Psych Narrative: Hesitant to move without someone having their hands on her. Mood & Affect: anxious; Negative for depressed Assessment & Plan Assessment/Plan (1) Physical debility: (2) H/O craniotomy: PLAN: To remove a large meningioma which had invaded the skull. Plastics closure of the scalp. Craniotomy done by Dr. Kincaid from neurosurgery at [facility]. (3) Ischemic cerebrovascular accident (CVA): PLAN: Post operatively. Possibly due to AF since the there were several small foci of acute infarct in the right thalamus, right cerebellar hemisphere and a few other places in both cerebral hemispheres. She had PAF while on rehab and she is now on Amiodarone and Coreg. 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 There are multifocal areas of severe stenosis on both sides of the brain. (5) Paroxysmal atrial fibrillation: (6) Pulmonary hypertension: PLAN: The right ventricular systolic pressure was estimated at 48 on a transthoracic echocardiogram done at [facility]. (7) Mitral stenosis: QUALIFIERS: Cardiac valve disease etiology: nonrheumatic Qualified Code(s): I34.2 - Nonrheumatic mitral (valve) stenosis PLAN: Mild to moderate on echocardiogram done at [facility]. (8) Acute blood loss anemia: PLAN: Heme globin stable at 9.7. (9) Hyponatremia: PLAN: Stable at 137 and she is now off salt tablets. (10) Thrush: PLAN: Resolved. (11) C. difficile enteritis: PLAN: Ruled out. (12) Excessive cerumen in both ear canals: (13) High cholesterol: (14) HTN (hypertension): QUALIFIERS: Hypertension type: primary hypertension Qualified Code(s): I10 - Essential (primary) hypertension PLAN: Recent blood pressures have been mildly elevated above goal of 130/80. PLAN: Plan 1. Continue therapy 2. Add lisinopril 2.5 mg daily to the current drug regimen. 3. Plan discharge home on Tuesday. She will be staying with her daughter and have supervision 27/12 for at least the first 1 to 2 weeks. 4. She will have home health care with [facility] home health care for PT/OT/ST. 5. DME includes a front wheeled walker and [employer] will be drop shipping the walker to her home. 6. She is to follow-up with her PCP in 7 to 10 days postdischarge. 7. Cranial sutures will be removed by the plastic surgeon at her next appointment. Charges/Coding Visit Charges Inpatient E&M: 34131 Subs Hosp L2
[2022-12-29 17:00] VITALS: BMI 28.8
--- NOTE | 2022-12-29 17:14 | PCM.DC ---
Discharge Instructions Diet Discharge Diet: Low fat / Low cholesterol Activity Discharge Activity: May Not Drive and May Shower Weight Bearing Status: Full weight bearing Dressing / Incision Call your doctor if your incision/area has: Continuous Slow Oozing, Sudden Increased Bleeding, Increased Pain/ Swelling, Increased Redness, Foul Smelling Discharge and Swelling at the incision site Call your doctor if you observe: Fever of 101 or Higher, Shortness of breath, Dizziness, Fainting spells, Swelling in the ankles, Chest pain, Increased palpitations (irregular heartbeat), Calf discomfort, Uncontrolled pain and - (STROKE symptoms: facial droop, slurred speech, inability to get words out, weakness on 1 side of the body and not the other, numbness on 1 side of the body and not the other, inability to maintain your balance sitting or standing, vertigo. ) Suture Line Care: Avoid Pulling/Pushing and Avoid Pinching/Bending Cleanse incision/area with: Soap & Water and - (No dressing is necessary) Follow Up Care Please Follow Up With: Monika Venegas MD When: Within 7-10 days of DC from rehab. You will also need to follow up with Dr. Kincaid and Dr. Yo. Appts have been made for you. Test Results: Test results from this visit will be discussed in further detail at your follow-up appointment, if applicable. Pending Tests Upon Discharge: none Discharge Plan Admission Admit Date/Time: 12/06/22 18:30 Primary Reason for Your Visit: Debility post craniotomy to remove a large meningioma. Attending Provider: Jo-Ann Arias Primary Care Provider: Monika Venegas Instructions Patient Instructions: Caring for Your Incision Additional Instructions / Restrictions: 1. You were very weak when you came to rehab but, you have made remarkable improvement with therapy and you will be able to go home rather than to a detention facility. You worked very hard. 2. Use the walker until the therapists who will be seeing you at home tell you it is okay to use a cane or no assistive device. 3. Read the info given you about caring for the incision and preventing infection. The sutures will stay in until you see Dr. Yo and she will take them out herself. 4. You are doing very well but, you are afraid to try things without having someone else's hands on you. You not need help to get out of bed or up from a chair or to walk you to the bathroom. You have been doing these things without help recently in rehab and this should continue at home. You are steady and you are not going to fall. 5. Stay active and do the exercises given to you by the therapists twice a day. Do not sit in one spot for more than 1 hour without getting up and taking a walk around the house. 6. You had a problem with the rhythm of your heart while in rehab and it is called atrial fibrillation. This increases your risk for stroke and you will now be taking and anticoagulant called Eliquis. I okayed the Eliquis with Dr. Kincaid. I am going to have you follow up with one of the cardiologists at the hospital.......[facility]. 7. You have a lot of narrowing of the arteries in your brain and in order to keep this from getting worse and causing more strokes you need to follow a low fat diet, keep your BP under 130/80 and keep the LDL cholesterol (bad cholesterol) under 70. 8. Instead of the prescription cream you are getting on you sore knee you can use Voltaren gel which is available at any pharmacy over the counter. Voltaren is one of of the components of the cream you have been using in the hospital. If this does not work as well call me next and I will call the prescription into the retail pharmacy at the hospital. It will cost about $40 for a container. 9. If you or your family have any questions after you leave rehab please do not hesitate to call me. OFFICE: [phone] CELL: [phone] Discharge Orders/Prescriptions Prescriptions: New apixaban 5 mg tablet 5 mg PO BID Qty: 60 0RF lisinopril 2.5 mg Tablet 2.5 mg PO DAILY Qty: 30 0RF Mag 64 64 mg Tablet,Delayed Release (Dr/Ec) 128 mg PO BID Qty: 60 0RF Continued multivitamin Tablet 1 tablet PO DAILY calcium carbonate-vitamin D3 1 EACH tablet 2 each PO DAILY cyanocobalamin (vitamin B-12) 500 MCG tablet,chewable 1,000 mcg PO DAILY ascorbic acid-elderberry fruit 1 EACH tablet,chewable 1 each PO DAILY cholecalciferol (vitamin D3) 125 MCG capsule 125 mcg PO DAILY acetaminophen [Tylenol] 325 mg tablet 650 mg PO Q4H PRN (Reason: pain) ascorbic acid (vitamin C) [C-500] 500 mg tablet 500 mg PO DAILY@1200 ferrous sulfate [Loly-Time] 325 mg (65 mg iron) tablet 325 mg PO DAILY@1200 selenium 200 mcg capsule 200 mcg PO DAILY zinc sulfate [Orazinc] 50 mg zinc (220 mg) capsule 220 mg PO DAILY carvedilol [Coreg] 12.5 mg tablet 12.5 mg PO BIDCM Qty: 60 0RF Rx Instructions: must administer with a meal/food atorvastatin 10 MG tablet 10 mg PO QHS Qty: 30 0RF amiodarone 200 mg Tablet 200 mg PO DAILY Qty: 30 0RF doxazosin [Cardura] 2 mg tablet 2 mg PO QHS Qty: 30 0RF Rx Instructions: hold if systolic BP less than 110 Discontinued hydrochlorothiazide 25 MG tablet 25 mg PO DAILY cephalexin 500 mg capsule 500 mg PO Q12H linezolid 600 mg tablet 600 mg PO Q12H polyethylene glycol 3350 [Miralax] 17 gram powder in packet 17 g PO DAILY sodium chloride 1,000 mg tablet,soluble 2,000 mg PO BID Referrals / Follow Up: Tali Yo [Other] - 01/10/23 1:15 pm ([facility] [address] ) flavia kincaid [Other] - 01/06/23 1:30 pm (virtual phone appointment ) CT,SCAN [Other] - 01/02/23 12:30 pm (CT Scan @ [facility] ) Monika Venegas MD [Primary Care Provider] - Disposition Disposition (needs filled in before D/C Order can be placed): Home Health Service
--- NOTE | 2022-12-29 17:49 | PCM.DC.SUM ---
Providers Date of Admission: 12/06/22 Date of Discharge: 01/02/23 Primary Care Physician: Dr. Monika Venegas MD none Reason For Visit: STROKE Diagnosis Discharge Diagnosis (1) Physical debility: Status: Acute Code(s): R53.81 - Other malaise (2) H/O craniotomy: Status: Inactive Code(s): Z98.890 - Other specified postprocedural states Plan: To remove a large meningioma which had invaded the skull. Plastics closure of the scalp. Craniotomy done by Dr. Kincaid from neurosurgery at [facility]. (3) Ischemic cerebrovascular accident (CVA): Status: Acute Code(s): I63.9 - Cerebral infarction, unspecified Plan: Post operatively. Possibly due to AF since the there were several small foci of acute infarct in the right thalamus, right cerebellar hemisphere and a few other places in both cerebral hemispheres. She had PAF while on rehab and she is now on Amiodarone and Coreg. (4) Cerebrovascular disease: Status: Inactive Code(s): I67.9 - Cerebrovascular disease, unspecified Plan: She has many areas of arterial stenosis in the brain and chronic occlusion of the right M1 MCA with collateral circulation. There are multifocal areas of severe stenosis on both sides of the brain. (5) Paroxysmal atrial fibrillation: Status: Acute Code(s): I48.0 - Paroxysmal atrial fibrillation (6) Pulmonary hypertension: Status: Inactive Code(s): I27.20 - Pulmonary hypertension, unspecified Plan: The right ventricular systolic pressure was estimated at 48 on a transthoracic echocardiogram done at [facility]. (7) Mitral stenosis: Status: Inactive Code(s): I05.0 - Rheumatic mitral stenosis Qualifiers: Cardiac valve disease etiology: nonrheumatic Qualified Code(s): I34.2 - Nonrheumatic mitral (valve) stenosis Plan: Mild to moderate on echocardiogram done at [facility]. (8) Acute blood loss anemia: Status: Acute Code(s): D62 - Acute posthemorrhagic anemia Plan: Heme globin stable at 9.7. (9) Hyponatremia: Status: Resolved Code(s): E87.1 - Hypo-osmolality and hyponatremia Plan: Stable at 137 and she is now off salt tablets. (10) Thrush: Status: Resolved Code(s): B37.0 - Candidal stomatitis Plan: Resolved. (11) C. difficile enteritis: Status: Ruled-out Code(s): A04.72 - Enterocolitis due to Clostridium difficile, not specified as recurrent Plan: Ruled out. (12) Excessive cerumen in both ear canals: Status: Acute Code(s): H61.23 - Impacted cerumen, bilateral (13) High cholesterol: Status: Inactive Code(s): E78.00 - Pure hypercholesterolemia, unspecified (14) HTN (hypertension): Status: Inactive Code(s): I10 - Essential (primary) hypertension Qualifiers: Hypertension type: primary hypertension Qualified Code(s): I10 - Essential (primary) hypertension Plan: Recent blood pressures have been mildly elevated above goal of 130/80. Plan 1. Continue therapy 2. Add lisinopril 2.5 mg daily to the current drug regimen. 3. Plan discharge home on Tuesday. She will be staying with her daughter and have supervision 27/12 for at least the first 1 to 2 weeks. 4. She will have home health care with [facility] home health care for PT/OT/ST. 5. DME includes a front wheeled walker and [employer] will be drop shipping the walker to her home. 6. She is to follow-up with her PCP, Dr. Monika Venegas, in 7 to 10 days postdischarge. 7. Cranial sutures will be removed by the plastic surgeon at her next appointment (scheduled for her in rehab). 8. Follow-up with Dr. Kincaid, neurosurgery, has been scheduled. Medications at Discharge Home Medications multivitamin 1 tablet PO DAILY supplement 08/12/20 ascorbic acid 100 mg-elderberry fruit 50 mg chewable tablet 1 each PO DAILY supplement 08/14/20 calcium carbonate 500 mg-vitamin D3 15 mcg (600 unit) tablet 2 each PO DAILY supplement 08/14/20 cholecalciferol (vitamin D3) 125 mcg (5,000 unit) capsule 125 mcg PO DAILY supplement 08/14/20 cyanocobalamin (vitamin B-12) 500 mcg chewable tablet 1,000 mcg PO DAILY supplement 08/14/20 acetaminophen 325 mg tablet (Tylenol) 650 mg PO Q4H PRN pain 12/06/22 ascorbic acid (vitamin C) 500 mg tablet (C-500) 500 mg PO DAILY@1200 vitamin 12/06/22 ferrous sulfate 325 mg (65 mg iron) tablet (Loly-Time) 325 mg PO DAILY@1200 iron 12/06/22 selenium 200 mcg capsule 200 mcg PO DAILY vitamin 12/06/22 zinc sulfate 50 mg zinc (220 mg) capsule (Orazinc) 220 mg PO DAILY vitamin 12/06/22 amiodarone 200 mg tablet 200 mg PO DAILY afib #30 tabs 12/29/22 apixaban 5 mg tablet 5 mg PO BID #60 tabs 12/29/22 atorvastatin 10 mg tablet 10 mg PO QHS cholesterol #30 tabs 12/29/22 carvedilol 12.5 mg tablet (Coreg) 12.5 mg PO BIDCM heart #60 tabs 12/29/22 doxazosin 2 mg tablet (Cardura) 2 mg PO QHS heart #30 tabs 12/29/22 lisinopril 2.5 mg tablet 2.5 mg PO DAILY #30 tabs 12/29/22 magnesium chloride 64 mg (magnesium chloride) tablet,delayed release (Mag 64) 128 mg (2 x 64 mg) PO BID #60 tabs 12/29/22 Hospital Course Operations - (Craniotomy with excision of meningioma and plastics reconstruction on 11/16/2022.) Procedures None Summary of Care Provided Minutes Spent on Discharge: 45 Hospital Course: FREDO MCGUIRE, is a 77 YO F with a PMH of HTN, HLD and L intraosseous, intra/extra?calvarial frontoparietal grade 1 meningioma who underwent Left frontal/temporal craniectomy for resection of meningioma with plastics closure (flap muscle/myocutaneous/fasciocutaneous full-thickness skin graft of the scalp) on 11/16/22. Postoperative course was complicated by a right thalamic/internal capsule CVA. 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 There was decreased caliber and number of the right M2 MCA and distal branches. 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 There were also several small foci of acute infarct most notably involving the right thalamus and right cerebellar hemisphere but there were also a few other punctate foci elsewhere in both cerebral hemispheres. I suspect she may have embolized. She also had steroid induced hyperglycemia and hyponatremia. She is not diabetic and a HGBA1C was 5.4. Post op she was seen by PT/OT/ST and recommendation for acute inpt rehab at [facility] was made. Fredo was transferred to the acute inpt rehab unit at [facility] on 12/06/22 for 3 hours of therapy daily to restore function/independence at or near her level prior to the surgery. Reportedly was C DIFF + at the previous hospital but, was not having diarrhea when she presented to rehab. The stool was negative for C. difficile A/B antigen and negative for C. difficile toxin. Fredo did very well in therapy and progressed much faster than I expected. Prior to discharge she was supervision/set up for eating, grooming and upper body dressing. She required only minimal assistance with bathing and she was standby assist for lower body dressing, toilet transfer, tub/shower transfer and toileting. She was able to do 12 sit to stands with bilateral upper extremities to assist in 30 seconds. She could ascend/descend two 6 inch steps with a right handrail and handhold of the therapist on the left for 3 sets. She was able to ambulate 172 feet with a front wheeled walker at contact-guard assist on various surfaces with no loss of balance. She was discharged home on 01/01/2023 and will have home health care. Her daughter will be staying with her for at least the first few weeks. She had follow-up appointments scheduled with Dr. Shannon Yo from plastic surgery, Dr. Ernie Kincaid from neurosurgery and also with her primary care doctor Dr. Monika Venegas. Physical Exam Const alert, oriented x3 and no apparent distress General Appearance: cooperative and well kempt Orientation / Consciousness: Negative for confused HEENT moist oral mucous membranes Eyes PERRL, EOMs intact bilaterally, conjunctivae normal and no scleral icterus Neck supple General: normal visual inspection and trachea midline Chest Chest: symmetrical chest wall rise Resp normal respiratory effort, normal air movement and clear to auscultation bilaterally Effort and Inspection: able to speak in complete sentences; Negative for tachypneic, respiratory distress or labored Cardio regular rate, regular rhythm, S1 normal heart sound, S2 normal heart sound, no rub and no gallops Cardio Narrative: No ectopy GI normal to inspection, nondistended, normoactive bowel sounds, soft to palpation and non-tender GI Narrative: No guarding with palpation. Regular bowel movements. no CVA tenderness Extremity no calf tenderness General Extremity: Negative for edema Skin General Skin Exam: no breakdown Rashes: no rashes Wound Narrative: The scalp incisions are intact with no dehiscence, no magdaleno-incisional erythema or swelling and no fluctuant areas. Sutures remain in and will not be removed until she sees the plastic surgeon in follow-up post discharge from acute rehab. Neuro CN's II-XII intact bilaterally and moves all extremities Neuro Narrative: She is moving all extremities. There are no focal motor deficits and no sensory deficits. She has generalized weakness which has improved significantly since admission. No visual field cuts, no neglect and no extinction. Speech: speech normal Psych cooperative, affect normal and speech normal Appearance: appropriate Attitude: calm Activity / Motor Behavior: appropriate eye contact Weight / BMI Weight Weight: 127 lb 13.89 oz Body Mass Index (BMI) 28.8 ABG / Lab / Microbiology Data 12/13/22 05:15 12/27/22 05:40 Microbiology: Microbiology 12/07/22 18:50 Stool C. difficile GDH Antigen & Toxins - Final 12/07/22 18:50 Stool C. difficile DNA Amplification - Final D/C Instructions Discharge Diet: Low fat / Low cholesterol Weight Bearing Status: Full weight bearing Call your doctor if your incision/area has: Continuous Slow Oozing, Sudden Increased Bleeding, Increased Pain/ Swelling, Increased Redness, Foul Smelling Discharge and Swelling at the incision site Call your doctor if you observe: Fever of 101 or Higher, Shortness of breath, Dizziness, Fainting spells, Swelling in the ankles, Chest pain, Increased palpitations (irregular heartbeat), Calf discomfort, Uncontrolled pain and - (STROKE symptoms: facial droop, slurred speech, inability to get words out, weakness on 1 side of the body and not the other, numbness on 1 side of the body and not the other, inability to maintain your balance sitting or standing, vertigo. ) Suture Line Care: Avoid Pulling/Pushing and Avoid Pinching/Bending Cleanse incision/area with: Soap & Water and - (No dressing is necessary) Pending Tests Upon Discharge: none Please Follow Up With: Monika Venegas MD When: Within 7-10 days of DC from rehab. You will also need to follow up with Dr. Kincaid and Dr. Yo. Appts have been made for you. Meaningful Use Info Meaningful Use Diagnoses (Choose all that apply): Ischemic CVA CVA Therapy Assessed for PT,OT and/or ST?: Yes Ischemic Stroke Antithrombotic order at d/c?: No Reason antithrombotic not ordered: Treatment not Indicated Dx of Atrial fib/flutter?: Yes Anticoagulant at discharge?: Yes Statins at discharge?: Yes Primary Dx Acute Ischemic CVA?: Yes IV thrombolytic ordered during stay?: No Discharge Plan Admission Admit Date/Time: 12/06/22 18:30 Primary Reason for Your Visit: Debility post craniotomy to remove a large meningioma. Attending Provider: Jo-Ann Arias Primary Care Provider: Monika Venegas Instructions Patient Instructions: Caring for Your Incision Additional Instructions / Restrictions: 1. You were very weak when you came to rehab but, you have made remarkable improvement with therapy and you will be able to go home rather than to a [facility] facility. You worked very hard. 2. Use the walker until the therapists who will be seeing you at home tell you it is okay to use a cane or no assistive device. 3. Read the info given you about caring for the incision and preventing infection. The sutures will stay in until you see Dr. Yo and she will take them out herself. 4. You are doing very well but, you are afraid to try things without having someone else's hands on you. You not need help to get out of bed or up from a chair or to walk you to the bathroom. You have been doing these things without help recently in rehab and this should continue at home. You are steady and you are not going to fall. 5. Stay active and do the exercises given to you by the therapists twice a day. Do not sit in one spot for more than 1 hour without getting up and taking a walk around the house. 6. You had a problem with the rhythm of your heart while in rehab and it is called atrial fibrillation. This increases your risk for stroke and you will now be taking and anticoagulant called Eliquis. I okayed the Eliquis with Dr. Kincaid. I am going to have you follow up with one of the cardiologists at the hospital.......[facility]. 7. You have a lot of narrowing of the arteries in your brain and in order to keep this from getting worse and causing more strokes you need to follow a low fat diet, keep your BP under 130/80 and keep the LDL cholesterol (bad cholesterol) under 70. 8. Instead of the prescription cream you are getting on you sore knee you can use Voltaren gel which is available at any pharmacy over the counter. Voltaren is one of of the components of the cream you have been using in the hospital. If this does not work as well call me next and I will call the prescription into the retail pharmacy at the hospital. It will cost about $40 for a container. 9. If you or your family have any questions after you leave rehab please do not hesitate to call me. OFFICE: [phone] CELL: [phone] Discharge Orders/Prescriptions Prescriptions: New apixaban 5 mg tablet 5 mg PO BID Qty: 60 0RF lisinopril 2.5 mg Tablet 2.5 mg PO DAILY Qty: 30 0RF Mag 64 64 mg Tablet,Delayed Release (Dr/Ec) 128 mg PO BID Qty: 60 0RF Continued multivitamin Tablet 1 tablet PO DAILY calcium carbonate-vitamin D3 1 EACH tablet 2 each PO DAILY cyanocobalamin (vitamin B-12) 500 MCG tablet,chewable 1,000 mcg PO DAILY ascorbic acid-elderberry fruit 1 EACH tablet,chewable 1 each PO DAILY cholecalciferol (vitamin D3) 125 MCG capsule 125 mcg PO DAILY acetaminophen [Tylenol] 325 mg tablet 650 mg PO Q4H PRN (Reason: pain) ascorbic acid (vitamin C) [C-500] 500 mg tablet 500 mg PO DAILY@1200 ferrous sulfate [Loly-Time] 325 mg (65 mg iron) tablet 325 mg PO DAILY@1200 selenium 200 mcg capsule 200 mcg PO DAILY zinc sulfate [Orazinc] 50 mg zinc (220 mg) capsule 220 mg PO DAILY carvedilol [Coreg] 12.5 mg tablet 12.5 mg PO BIDCM Qty: 60 0RF Rx Instructions: must administer with a meal/food atorvastatin 10 MG tablet 10 mg PO QHS Qty: 30 0RF amiodarone 200 mg Tablet 200 mg PO DAILY Qty: 30 0RF doxazosin [Cardura] 2 mg tablet 2 mg PO QHS Qty: 30 0RF Rx Instructions: hold if systolic BP less than 110 Discontinued hydrochlorothiazide 25 MG tablet 25 mg PO DAILY cephalexin 500 mg capsule 500 mg PO Q12H linezolid 600 mg tablet 600 mg PO Q12H polyethylene glycol 3350 [Miralax] 17 gram powder in packet 17 g PO DAILY sodium chloride 1,000 mg tablet,soluble 2,000 mg PO BID Referrals / Follow Up: Tali Yo [Other] - 01/10/23 1:15 pm ([facility] [address] ) ernie kincaid [Other] - 01/06/23 1:30 pm (virtual phone appointment ) CT,SCAN [Other] - 01/02/23 12:30 pm ([facility] Scan @ [facility] ) Monika Venegas MD [Primary Care Provider] - (daughter will make appointment) Lolly Alejandra PA [Med Staff - Adv Practice Prof] - 01/13/23 1:00 pm Disposition Disposition (needs filled in before D/C Order can be placed): Home Health Service Charges/Coding Visit Charges Inpatient E&M: 47876 Disch Hosp >30min
[2022-12-29 18:58] VITALS: BP 158/60; PULSE 76; RESP 18; TEMP 36.6; O2SAT 97
[2022-12-29 20:13] VITALS: BMI 28.8
[2022-12-29 20:35] VITALS: BP 116/41; PULSE 71
[2022-12-29] MEDS: Doxazosin 1 MG Tablet 2 MG PO (20:36)
[2022-12-29] MEDS: Atorvastatin Calcium 10 MG Tablet PO (20:37)
[2022-12-30] MEDS: Acetaminophen 325 MG Tablet 650 MG PO ×3 (03:05→17:25)
[2022-12-30] MEDS: Lisinopril 2.5 MG Tablet PO (08:07)
[2022-12-30] MEDS: Multivitamins,Therapeutic Tablet 1 TABLET PO (08:07)
[2022-12-30] MEDS: Carvedilol 12.5 MG Tablet PO ×3 (08:07→20:40)
[2022-12-30] MEDS: Amiodarone 200 MG Tablet PO (08:07)
[2022-12-30] MEDS: Cyanocobalamin 500 MCG Tablet 1000 MCG PO (08:07)
[2022-12-30] MEDS: APIXABAN 5 MG TABLET PO ×2 (08:07→20:40)
[2022-12-30] MEDS: Magnesium Chloride 64 MG Delay Rel.Tablet 128 MG PO ×2 (08:08→20:40)
[2022-12-30] MEDS: Calcium Carb/Vitamin D 1 TABLET Tablet PO (08:08)
[2022-12-30] MEDS: Arthritis Pain Compound 60 CLICK TUBE TOPICAL ×3 (08:08→20:39)
[2022-12-30 09:16] VITALS: BP 138/58; PULSE 76; RESP 16; TEMP 36.5; O2SAT 94
[2022-12-30] MEDS: Ascorbic Acid 500 MG Tablet PO (12:15)
[2022-12-30] MEDS: Ferrous Sulfate 325 MG Tablet PO (12:15)
--- NOTE | 2022-12-30 15:07 | CASEMGMT ---
Social Work Team meeting held. Patient present as well as patient daughters. Discharge date continues to be 01/01/2023 with patient to discharge to home alone with daughters to stay with patient. Patient to have home health care services through [facility] for PT/OT/[facility]. Patient family reports to have received walker through [employer] and walker is already at home. Family plans to transport patient to home. Patient has no concerns on returning to home. Family able to have all questioned answered. Patient to continiue with further care and treatment on the Inpatient Rehab Unit until time of discharge on 01/01/2023. [facility] reports that start of care is going to be Tuesday and to have spoken with family. Proposed discharge date: 01/01/2023 PLAN: Discharge to home with home health services and family for support. Agustin BLOOD, CHIOMA
[2022-12-30 15:36] VITALS: BMI 28.8
[2022-12-30 19:38] VITALS: BP 151/61; PULSE 77; RESP 16; TEMP 36.7; O2SAT 97
[2022-12-30 20:27] VITALS: BMI 28.8
[2022-12-30] MEDS: Doxazosin 1 MG Tablet 2 MG PO (20:40)
[2022-12-30] MEDS: Atorvastatin Calcium 10 MG Tablet PO (20:41)
[2022-12-30 22:00] VITALS: PULSE 77; RESP 16; O2SAT 97
[2022-12-31] MEDS: Acetaminophen 325 MG Tablet 650 MG PO ×4 (01:09→22:58)
[2022-12-31] MEDS: Arthritis Pain Compound 60 CLICK TUBE TOPICAL ×3 (05:02→20:16)
[2022-12-31 05:15] VITALS: BMI 27.1
[2022-12-31] MEDS: APIXABAN 5 MG TABLET PO ×2 (07:44→20:19)
[2022-12-31] MEDS: Multivitamins,Therapeutic Tablet 1 TABLET PO (07:44)
[2022-12-31] MEDS: Amiodarone 200 MG Tablet PO (07:44)
[2022-12-31 07:57] VITALS: BP 125/59; PULSE 67; RESP 16; TEMP 36; O2SAT 98
[2022-12-31] MEDS: Calcium Carb/Vitamin D 1 TABLET Tablet PO (09:37)
[2022-12-31] MEDS: Magnesium Chloride 64 MG Delay Rel.Tablet 128 MG PO ×2 (09:37→20:18)
[2022-12-31] MEDS: Cyanocobalamin 500 MCG Tablet 1000 MCG PO (09:37)
[2022-12-31] MEDS: Lisinopril 2.5 MG Tablet PO (09:37)
[2022-12-31 10:50] VITALS: BMI 27.1
[2022-12-31] MEDS: Ascorbic Acid 500 MG Tablet PO (12:05)
[2022-12-31] MEDS: Ferrous Sulfate 325 MG Tablet PO (12:06)
[2022-12-31] MEDS: Carvedilol 12.5 MG Tablet PO (16:37)
[2022-12-31 19:00] VITALS: BP 135/71; PULSE 81; RESP 16; TEMP 36.6; O2SAT 98
[2022-12-31] MEDS: Doxazosin 1 MG Tablet 2 MG PO (20:18)
[2022-12-31] MEDS: Atorvastatin Calcium 10 MG Tablet PO (20:18)
[2022-12-31 20:30] VITALS: BMI 27.1
[2023-01-01] MEDS: Arthritis Pain Compound 60 CLICK TUBE TOPICAL (05:04)
[2023-01-01] MEDS: Acetaminophen 325 MG Tablet 650 MG PO ×2 (05:04→11:52)
[2023-01-01 07:46] VITALS: BP 118/43; PULSE 71; RESP 16; TEMP 36.4; O2SAT 97
[2023-01-01] MEDS: Lisinopril 2.5 MG Tablet PO (08:06)
[2023-01-01] MEDS: Calcium Carb/Vitamin D 1 TABLET Tablet PO (08:07)
[2023-01-01] MEDS: APIXABAN 5 MG TABLET PO (08:07)
[2023-01-01] MEDS: Cyanocobalamin 500 MCG Tablet 1000 MCG PO (08:07)
[2023-01-01] MEDS: Multivitamins,Therapeutic Tablet 1 TABLET PO (08:08)
[2023-01-01] MEDS: Amiodarone 200 MG Tablet PO (08:09)
[2023-01-01] MEDS: Magnesium Chloride 64 MG Delay Rel.Tablet 128 MG PO (08:09)
[2023-01-01] MEDS: Carvedilol 12.5 MG Tablet PO (08:09)
[2023-01-01] MEDS: Ascorbic Acid 500 MG Tablet PO (11:46)
[2023-01-01] MEDS: Ferrous Sulfate 325 MG Tablet PO (11:47)
== END 2023-01-01 12:32 | disposition home health service (06) | DRG 949 ==
PROVIDERS: Admitting Provider Internal Medicine; PCP Family Medicine; Referring Provider Internal Medicine; Visit Provider Internal Medicine
DX: Z48.811 Encounter for surgical aftercare following surgery on the nervous system (principal); D62 Acute posthemorrhagic anemia; A04.72 Enterocolitis due to Clostridium difficile, not specified as recurrent; B37.0 Candidal stomatitis; E87.1 Hypo-osmolality and hyponatremia; I27.20 Pulmonary hypertension, unspecified; I48.0 Paroxysmal atrial fibrillation; D32.9 Benign neoplasm of meninges, unspecified; E78.00 Pure hypercholesterolemia, unspecified; I10 Essential (primary) hypertension; T38.0X5A Adverse effect of glucocorticoids and synthetic analogues, initial encounter; R73.9 Hyperglycemia, unspecified; Z86.73 Personal history of transient ischemic attack (TIA), and cerebral infarction without residual deficits; Z79.899 Other long term (current) drug therapy
CPT/HCPCS: 36415; 70450; 71046; 80048; 80053; 82962; 83735; 84100; 84295; 84443; 85014; 85018; 85025; 85027; 87493; 92507; 92526; 92610; 93005; 94668; 97110; 97112; 97116; 97129; 97130; 97150; 97163; 97166; 97530; 97535; 97802; P9047; A4216; J1940

== ENCOUNTER 2022-12-23 18:32 | Inpatient (IN) | payer MEDICARE, OTHER, SELFPAY ==
[2022-12-23] VITALS (18 sets, daily range): BP systolic 92–126; BP diastolic 48–104; PULSE 122–172; RESP 14–25; TEMP 36.6–36.7; O2SAT 97–100; BMI 27.4
--- NOTE | 2022-12-23 18:30 | EKG12_ITS ---
Test Reason : AFIB Blood Pressure : / mmHG Vent. Rate : 151 BPM Atrial Rate : 091 BPM P-R Int : 000 ms QRS Dur : 076 ms QT Int : 274 ms P-R-T Axes : 000 040 089 degrees QTc Int : 434 ms Atrial fibrillation Abnormal ECG No previous ECGs available Confirmed by LOLIS DEL VALLE, BROCK ([id number]), dictionary editor ARETHA GARCIA ([id number]) on 12/28/2022 7:13:45 AM Referred By: RIKA Confirmed By:BROCK DANIELLE MD
--- NOTE | 2022-12-23 18:39 | PCM.HP.STD ---
HPI - General General Date of Admission: 12/23/22 Date of Service: 12/23/22 Chief Complaint: Atrial fibrillation with rapid ventricular response HPI Narrative FREDO MCGUIRE, is a 77 F who recently underwent craniotomy for resection of a large meningioma in the left frontotemporal region at [facility] and had been undergoing acute rehab here posthospital. Hospitalization at that time was complicated by acute ischemic stroke in the right thalamic and right cerebellar regions with CTA showing extensive atherosclerotic intracranial stenosis. On routine examination today patient was found to be tachycardic with an irregular heart rhythm. EKG was done that showed atrial fibrillation with rapid ventricular response with rates as high as 150. Patient typically runs in the 50s. Decision made to admit patient to the hospital for management. Patient denies any chest pain or shortness of breath or even palpitations. Denies any dizziness or lightheadedness. No prior history of atrial fibrillation. [facility] Medical History Cerebrovascular disease Hemorrhoids High cholesterol HTN (hypertension) Mitral stenosis Pulmonary hypertension Stroke/cerebrovascular accident Home Medications atenolol 50 mg tablet 50 mg PO DAILY blood pressure 07/05/18 [History Last Taken 08/28/20] atorvastatin 10 mg tablet 10 mg PO QHS cholesterol 07/05/18 [History Last Taken 08/27/20] hydrochlorothiazide 25 mg tablet 25 mg PO DAILY BP 07/05/18 [History Last Taken 08/28/20] multivitamin 1 tablet PO DAILY supplement 08/12/20 [History Last Taken 08/28/20] ascorbic acid 100 mg-elderberry fruit 50 mg chewable tablet 1 each PO DAILY supplement 08/14/20 [History Last Taken 08/27/20] calcium carbonate 500 mg-vitamin D3 15 mcg (600 unit) tablet 2 each PO DAILY supplement 08/14/20 [History Last Taken 08/28/20] cholecalciferol (vitamin D3) 125 mcg (5,000 unit) capsule 125 mcg PO DAILY supplement 08/14/20 [History Last Taken 08/28/20] cyanocobalamin (vitamin B-12) 500 mcg chewable tablet 1,000 mcg PO DAILY supplement 08/14/20 [History Last Taken 08/27/20] acetaminophen 325 mg tablet (Tylenol) 650 mg PO Q4H PRN pain 12/06/22 [History Last Taken Unknown] ascorbic acid (vitamin C) 500 mg tablet (C-500) 500 mg PO DAILY@1200 vitamin 12/06/22 [History Last Taken Unknown] carvedilol 12.5 mg tablet (Coreg) 12.5 mg PO BIDCM heart 12/06/22 [History Last Taken Unknown] cephalexin 500 mg capsule 500 mg PO Q12H atb 12/06/22 [History Last Taken Unknown] doxazosin 2 mg tablet (Cardura) 2 mg PO QHS heart 12/06/22 [History Last Taken Unknown] ferrous sulfate 325 mg (65 mg iron) tablet (Loly-Time) 325 mg PO DAILY@1200 iron 12/06/22 [History Last Taken Unknown] linezolid 600 mg tablet 600 mg PO Q12H atb 12/06/22 [History Last Taken Unknown] polyethylene glycol 3350 17 gram oral powder packet (Miralax) 17 g PO DAILY constipation 12/06/22 [History Last Taken Unknown] selenium 200 mcg capsule 200 mcg PO DAILY vitamin 12/06/22 [History Last Taken Unknown] sodium chloride 1,000 mg soluble tablet 2,000 mg PO BID vitamin 12/06/22 [History Last Taken Unknown] zinc sulfate 50 mg zinc (220 mg) capsule (Orazinc) 220 mg PO DAILY vitamin 12/06/22 [History Last Taken Unknown] Allergy/AdvReac Type Severity Reaction Status Date / Time No Known Allergies Allergy Verified 07/31/21 17:01 Family History Father CVA (cerebral vascular accident) Heart disease Mother Diabetes Surgical History H/O craniotomy S/P bilateral breast reduction S/P carpal tunnel release S/P hysterectomy Status post hemorrhoidectomy (~08/19/20) Social History current occupational status: retired Smoking Status: Never smoker alcohol intake: never ROS ROS Narrative Denies any chest pain or shortness of breath. No nausea vomiting. Admits to some anxiety currently. All other systems reviewed and essentially negative or as above in the body of the history. Vital Signs Vital Signs Vital Signs: Weight Weight: 55.5 kg Body Mass Index (BMI) 27.4 Physical Exam Narrative General exam. Elderly woman, anxious appearing. Not in any overt distress HEENT. Oral mucosa moist no pallor jaundice and no cyanosis. Well-healed scars over the scalp with intact sutures. Neck. Neck is supple Heart. Heart sounds irregular and tachycardic. No murmurs heard Lungs. Clear to auscultation. Abdomen. Obese and moves with respiration. Extremities. No pedal edema. [employer]. Conscious and alert oriented x3. Cranial nerves II to XII grossly intact. Myoclonic jerking of the right foot noted. Results Lab / Micro Data Attestation: I reviewed the patient's lab results. Assessment & Plan Assessment/Plan (1) Paroxysmal atrial fibrillation with rapid ventricular response: PLAN: Plan Assessment and plan 1. New onset versus newly detected atrial fibrillation with rapid ventricular response. Heart rate as high as 150. Patient to be admitted to the ICU on telemetry. Start patient on Cardizem drip while monitoring blood pressure. Titrate for heart rate between 90 and 110. Consult cardiology. Echocardiogram. [id number] of 5 warrants anticoagulation, however had craniotomy about a month ago. We will need to check with patient's neurosurgeon if safe and okay to start on full anticoagulation with Eliquis. May be prudent to start with heparin by weight and then monitoring for 24 to 48 hours for any bleeding complications prior to transitioning to Eliquis. 2. Recent cerebrovascular accident complicating postoperative course. Infarct noted in different vascular territories indeed raising the suspicion of cardioembolic etiology, however CT angiogram did not show extensive intracranial atherosclerotic stenotic disease that potentially may explain the same especially if patient experienced significant hypotension and cerebral hypoperfusion during surgery. No aspirin initiated. Will increase atorvastatin to 40 mg daily 3. Recent craniotomy for resection of large meningioma. Noted patient on long-term antibiotics with cephalexin and linezolid. Not clear the indication. Discussed with acute rehab physician and informed patient was supposed to continue for 14 days from date of admission there. That would end today. We will discontinue. 4. Myoclonic jerking of the right foot. Possible simple focal motor seizure. The patient states that she has had this for some years. Suspect related to meningioma that was on the left. Will order EEG. Consult neurology if abnormal. Charges/Coding Visit Charges Inpatient E&M: 88153 Init Hosp L3
[2022-12-23 20:52] LABS: Thyroid Stim Hormone (TSH) 2.34 uIU/mL (0.358-3.74)
[2022-12-23] MEDS: Sodium Chloride 1 GM Tablet 2 GM PO (21:03)
[2022-12-23] MEDS: MELATONIN 10 MG TABLET PO (21:03)
[2022-12-23] MEDS: Atorvastatin Calcium 40 MG Tablet PO (21:03)
[2022-12-23] MEDS: Amiodarone 360 MG in Dextrose 5% Viaflo Bag 192.8 ML 33.3 MG CONT INF (23:58)
[2022-12-24] VITALS (18 sets, daily range): BP systolic 88–119; BP diastolic 42–74; PULSE 69–119; RESP 14–24; TEMP 36.5–36.8; O2SAT 95–99
[2022-12-24] MEDS: Amiodarone 360 MG in Dextrose 5% Viaflo Bag 192.8 ML 16.7 MG CONT INF (04:53)
[2022-12-24 05:52] LABS: Absolute Lymphocyte Count 0.91 X10^3/uL (0.83-4.51); Absolute Neutrophil Count 3.9 X10^3/uL (2.0-7.7); Basophil# 0.02 X10^3/uL; Basophil% 0.4 % (0-1); Eosinophil# 0.04 X10^3/uL; Eosinophils% 0.7 % (0-5); Hematocrit 30.1 % (37-47); Hemoglobin 9.7 g/dL (12.0-15.0); Lymphocyte # 0.91 X10^3/ul (0.83-4.51); Lymphocyte % 15.9 % (19-41); Mean Corp Hgb Conc 32.2 g/dL (32-36); Mean Corpuscular Hgb 29.5 pg (27.0-32.0); Mean Corpuscular Volume 91.5 fL (81-99); Mean Platelet Vol. 9.9 fl (6.2-12.0); Monocyte# 0.75 X10^3/uL; Monocyte% 13.1 % (0-10); NRBC Flagged by Analyzer 0 % (0-5); Neutrophil # 3.86 X10^3/uL (2.7-7.7); Neutrophil % 67.6 % (47-70); Platelet Count 246 K/mm3 (150-450); RBC Distribution Width CV 15.2 % (11.6-14.6); RBC Distribution Width SD 50.5 fl (35.1-43.9); Red Blood Count 3.29 M/mm3 (4.2-5.4); White Blood Count 5.7 K/mm3 (4.4-11.0)
[2022-12-24 06:29] LABS: ALB/GLOB Ratio 1.1 RATIO (0.9-2.4); AST(SGOT) 14 U/L (15-37); Alanine Aminotransfer ALT/SGPT 36 U/L (13-56); Albumin, Serum 2.9 g/dL (3.2-5.0); Alkaline Phosphatase 121 U/L (45-117); Anion Gap 6 (5-15); BUN 17 mg/dL (7-18); Calcium,Total 8.8 mg/dL (8.5-10.1); Chloride 109 mmol/L (98-107); Creatinine, Serum 0.59 mg/dL (0.55-1.02); EST Glomerular Filtration Rate 105 mL/min (>60); Est Glom Filt Rate - Afr Amer 127 mL/min (>60); Estimated Creatinine Clearance 39.97 ml/min; Globulin 2.7 g/dL (2.2-4.2); Glucose 159 mg/dL (74-106); Potassium 4.2 mmol/L (3.5-5.1); Protein, Total 5.6 g/dL (6.4-8.2); Sodium Level 138 mmol/L (136-145)
--- NOTE | 2022-12-24 09:41 | CASEMGMT ---
Patient is from [facility] Acute Rehab Unit. SALINAS spoke with Alicia in Rehab and patient can return whenever she is ready. SALINAS will check with patient and family to confirm this is the plan. Plan: [facility] Acute Rehab Unit Padmini PIZARRO
[2022-12-24] MEDS: hydroCHLOROthiazide 25 MG Tablet PO (09:44)
[2022-12-24] MEDS: Sodium Chloride 1 GM Tablet 2 GM PO (09:44)
[2022-12-24] MEDS: Enoxaparin 40 MG/0.4 ML Syringe SC (09:48)
[2022-12-24] MEDS: Cyanocobalamin 500 MCG Tablet 1000 MCG PO (09:48)
--- NOTE | 2022-12-24 10:36 | CON.PCM.CA_ITS ---
Assessment & Plan Assessment/Plan (1) Paroxysmal atrial fibrillation: PLAN: Converted to normal sinus rhythm. Change amiodarone to p.o. Patient has history of recent coronary artery disease, complicated by intracerebral bleed and postop ischemic CVA. Defer decision of anticoagulation to neurosurgery/neurology. Suspect (2) HTN (hypertension): PLAN: Blood pressure on the lower side. Stop hydrochlorothiazide. (3) H/O craniotomy: PLAN: As per neurosurgery. (4) Ischemic cerebrovascular accident (CVA): PLAN: Antiplatelet/anticoagulation agents only as per neurosurgery/neurology. HPI Consult Data Date of Consult: 12/24/22 HPI Narrative Reason for Consultation: Atrial fibrillation HPI Narrative: Patient has past medical history significant for hypertension. She recently had surgery done for meningioma. Postop course was complicated by an ischemic stroke. She has been in the rehab where she was noted to have irregular, fast heart rate. She was referred to the hospital. She was noted to be in atrial fibrillation with rapid ventricular response. Started on amiodarone and d iltiazem. Converted to normal sinus rhythm. Patient denies any palpitations. Denies any chest pains. No shortness of breath. [facility] Medical History Cerebrovascular disease Hemorrhoids High cholesterol HTN (hypertension) Mitral stenosis Pulmonary hypertension Stroke/cerebrovascular accident Home Medications atenolol 50 mg tablet 50 mg PO DAILY blood pressure 07/05/18 [History Last Taken 08/28/20] atorvastatin 10 mg tablet 10 mg PO QHS cholesterol 07/05/18 [History Last Taken 08/27/20] hydrochlorothiazide 25 mg tablet 25 mg PO DAILY BP 07/05/18 [History Last Taken 08/28/20] multivitamin 1 tablet PO DAILY supplement 08/12/20 [History Last Taken 08/28/20] ascorbic acid 100 mg-elderberry fruit 50 mg chewable tablet 1 each PO DAILY sup plement 08/14/20 [History Last Taken 08/27/20] calcium carbonate 500 mg-vitamin D3 15 mcg (600 unit) tablet 2 each PO DAILY supplement 08/14/20 [History Last Taken 08/28/20] cholecalciferol (vitamin D3) 125 mcg (5,000 unit) capsule 125 mcg PO DAILY supplement 08/14/20 [History Last Taken 08/28/20] cyanocobalamin (vitamin B-12) 500 mcg chewable tablet 1,000 mcg PO DAILY supplement 08/14/20 [History Last Taken 08/27/20] acetaminophen 325 mg tablet (Tylenol) 650 mg PO Q4H PRN pain 12/06/22 [History Last Taken Unknown] ascorbic acid (vitamin C) 500 mg tablet (C-500) 500 mg PO DAILY@1200 vitamin [History Last Taken Unknown] carvedilol 12.5 mg tablet (Coreg) 12.5 mg PO BIDCM heart 12/06/22 [History Last Taken Unknown] cephalexin 500 mg capsule 500 mg PO Q12H atb 12/06/22 [History Last Taken Unknown] doxazosin 2 mg tablet (Cardura) 2 mg PO QHS heart 12/06/22 [History Last Taken Unknown] ferrous sulfate 325 mg (65 mg iron) tablet (Loly-Time) 325 mg PO DAILY@1200 iron 12/06/22 [History Last Taken Unknown] linezolid 600 mg tablet 600 mg PO Q12H atb 12/06/22 [History Last Taken Unknown] polyethylene glycol 3350 17 gram oral powder packet (Miralax) 17 g PO DAILY constipation 12/06/22 [History Last Taken Unknown] selenium 200 mcg capsule 200 mcg PO DAILY vitamin 12/06/22 [History Last Taken Unknown] sodium chloride 1,000 mg soluble tablet 2,000 mg PO BID vitamin 12/06/22 [History Last Taken Unknown] zinc sulfate 50 mg zinc (220 mg) capsule (Orazinc) 220 mg PO DAILY vitamin 12/06 [History Last Taken Unknown] Allergy/AdvReac Type Severity Reaction Status Date / Time No Known Allergies Allergy Verified 07/31/21 17:01 Family History Father CVA (cerebral vascular accident) Heart disease Mother Diabetes Surgical History H/O craniotomy S/P bilateral breast reduction S/P carpal tunnel release S/P hysterectomy Status post hemorrhoidectomy (~08/19/20) Social History current occupational status: retired Smoking Status: Never smoker alcohol intake: never Physical Exam Narrative Comfortable. No distress. States his heart size is improved is abnormal exercise rubs. Chest clear to auscultation bilaterally. Alert oriented x3. No ankle edema noted. Risk Stratification Risk Stratification Applicable: No Objective Data Vital Signs: Vital Signs Temp Pulse Resp BP Pulse Ox O2 Del Method 98.1 F 75 14 88/63 L 99 Room Air 12/24/22 10:00 12/24/22 10:00 12/24/22 10:00 12/24/22 10:00 12/24/22 10:00 12/24/22 10:00 Oxygen Delivery Method Room Air Weight: 122 lb 5.705 oz Body Mass Index (BMI) 27.4 Intake & Output: Intake and Output for Last 24 Hours 12/22/22 12/23/22 12/24/22 23:59 23:59 23:59 Intake Total 148.09 / 263.09 521.92 / 521.92 Balance 148.09 / 263.09 521.92 / 521.92 Lab / Micro Data 12/24/22 05:39 12/24/22 05:39 Labs: Laboratory Results - last 24 hr 12/23/22 20:18: TSH 2.34 12/24/22 05:39: WBC 5.7, RBC 3.29 L, Hgb 9.7 L, Hct 30.1 L, MCV 91.5, MCH 29.5, MCHC 32.2, RDW Std Deviation 50.5 H, RDW Coeff of Marga 15.2 H, Plt Count 246, MPV 9.9, Immature Gran % (Auto) 2.300 H, Neut % (Auto) 67.6, Lymph % (Auto) 15.9 L, [place] % (Auto) 13.1 H, Eos % (Auto) 0.7, Baso % (Auto) 0.4, Absolute Neuts (auto) 3.9, Absolute Lymphs (auto) 0.91, Nucleated RBC % 0, Sodium 138, Potassium 4.2, Chloride 109 H, Carbon Dioxide 23.0, Anion Gap 6, BUN 17, Creatinine 0.59, Estim Creat Clear Calc 39.97, Est GFR (MDRD) Af Amer 127, Est GFR (MDRD) Non-Af 105, BUN/Creatinine Ratio 29.0 H, Glucose 159 H, Calcium 8.8, Total Bilirubin 0.70, AST 14 L, ALT 36, Alkaline Phosphatase 121 H, Total Protein 5.6 L, Albumin 2.9 L , Globulin 2.7, Albumin/Globulin Ratio 1.1 Cardiology Labs/Tests 12/24/22 05:39: WBC 5.7, RBC 3.29 L, Hgb 9.7 L, Hct 30.1 L, MCV 91.5, MCH 29.5, MCHC 32.2, Plt Count 246, MPV 9.9, Immature Gran % (Auto) 2.300 H, Neut % (Auto) 67.6, Lymph % (Auto) 15.9 L, [place] % (Auto) 13.1 H, Eos % (Auto) 0.7, Baso % (Auto) 0.4, Absolute Neuts (auto) 3.9, Nucleated RBC % 0, Sodium 138, Potassium 4.2, Chloride 109 H, Carbon Dioxide 23.0, Anion Gap 6, BUN 17, Creatinine 0.59, Est GFR (MDRD) Af Amer 127, Est GFR (MDRD) Non-Af 105, BUN/Creatinine Ratio 29.0 H, Glucose 159 H, Calcium 8.8, Total Bilirubin 0.70 Rhythm: EKG: ECHO: Stress Test: Cardiac Cath: PCI: CT Surgery: Holter monitor: EPS: PPM: CXR: Chest CT Scan:
[2022-12-24] MEDS: 0.9% Saline Lock 10 ML Syringe IV (10:53)
[2022-12-24] MEDS: Amiodarone 200 MG Tablet PO (10:53)
[2022-12-24] MEDS: Ascorbic Acid 500 MG Tablet PO (10:58)
[2022-12-24] MEDS: Ferrous Sulfate 325 MG Tablet PO (10:58)
--- NOTE | 2022-12-24 11:27 | PCM.DC.SUM ---
Providers Date of Admission: 12/23/22 Date of Discharge: 12/24/22 Primary Care Physician: Dr. Monika Venegas MD Consultations 12/23/22 18:30 Consult: Cardiology Routine Consulting Provider: Mo Galaviz Reason for Consult: afib rvr EMERGENT Consult: No MD Notified: Yes Date Notified: 12/23/22 Time Notified: 18:30 Method of Notification: Text Reason For Visit: AFIB WITH RVR Diagnosis Discharge Diagnosis (1) Paroxysmal atrial fibrillation: Status: Acute Code(s): I48.0 - Paroxysmal atrial fibrillation (2) HTN (hypertension): Status: Chronic Code(s): I10 - Essential (primary) hypertension (3) H/O craniotomy: Status: Acute Code(s): Z98.890 - Other specified postprocedural states (4) Ischemic cerebrovascular accident (CVA): Status: Acute Code(s): I63.9 - Cerebral infarction, unspecified Medications at Discharge Home Medications atorvastatin 10 mg tablet 10 mg PO QHS cholesterol 07/05/18 hydrochlorothiazide 25 mg tablet 25 mg PO DAILY BP 07/05/18 multivitamin 1 tablet PO DAILY supplement 08/12/20 ascorbic acid 100 mg-elderberry fruit 50 mg chewable tablet 1 each PO DAILY supplement 08/14/20 calcium carbonate 500 mg-vitamin D3 15 mcg (600 unit) tablet 2 each PO DAILY supplement 08/14/20 cholecalciferol (vitamin D3) 125 mcg (5,000 unit) capsule 125 mcg PO DAILY supplement 08/14/20 cyanocobalamin (vitamin B-12) 500 mcg chewable tablet 1,000 mcg PO DAILY supplement 08/14/20 acetaminophen 325 mg tablet (Tylenol) 650 mg PO Q4H PRN pain 12/06/22 ascorbic acid (vitamin C) 500 mg tablet (C-500) 500 mg PO DAILY@1200 vitamin 12/06/22 carvedilol 12.5 mg tablet (Coreg) 12.5 mg PO BIDCM heart 12/06/22 cephalexin 500 mg capsule 500 mg PO Q12H atb 12/06/22 doxazosin 2 mg tablet (Cardura) 2 mg PO QHS heart 12/06/22 ferrous sulfate 325 mg (65 mg iron) tablet (Loly-Time) 325 mg PO DAILY@1200 iron 12/06/22 linezolid 600 mg tablet 600 mg PO Q12H atb 12/06/22 polyethylene glycol 3350 17 gram oral powder packet (Miralax) 17 g PO DAILY constipation 12/06/22 selenium 200 mcg capsule 200 mcg PO DAILY vitamin 12/06/22 sodium chloride 1,000 mg soluble tablet 2,000 mg PO BID vitamin 12/06/22 zinc sulfate 50 mg zinc (220 mg) capsule (Orazinc) 220 mg PO DAILY vitamin 12/06/22 amiodarone 200 mg tablet 200 mg PO DAILY #0 tabs 12/24/22 Hospital Course Operations None Procedures EKG Summary of Care Provided Minutes Spent on Discharge: 33 Hospital Course: Mrs. Marie is a 77-year-old white female who presented to [facility] as a direct admission from the rehab facility here on campus. She recently underwent a craniotomy for resection of a large meningioma in the left frontal temporal region at [facility] and was undergoing acute rehab prior to discharging home. Her hospitalization at [facility] was complicated by an acute ischemic stroke in the right thalamic area and a right cerebellar stroke with CTA showing extensive atherosclerosis and intracranial stenosis. On routine exam on the day of admission she was found to be tachycardic with an irregularly irregular heart rhythm. An EKG was done and demonstrated that she was in A-fib with RVR. Heart rates were as high as 150. Typical heart rates in the 50s. Request for admission to the hospital directly from rehab was made and the patient was admitted to PCU. She was initially placed on a Cardizem drip however her heart rate still remained elevated and amiodarone was ordered. We subsequently discontinued Cardizem and her amiodarone was able to be transition to oral amiodarone as she did convert to normal sinus rhythm. It was felt that she developed atrial fibrillation on the day of admission as her initial exam in the morning per discussion with the physician was normal sinus rhythm. Cardiology evaluated the patient and did transitioned her to amiodarone 200 mg daily which will be continued at discharge. Dr. Arias from rehab discussed the case with the neurosurgeon at [facility] with regards to anticoagulation and they recommended a CT scan be performed and reviewed prior to anticoagulation being initiated. With her history of stroke we do feel that it is imperative that we anticoagulate her if at all possible. Echocardiogram was deferred as she had a recent echocardiogram done at [facility] that did not show any gross abnormalities however she did have some nonrheumatic valvular disease on that echocardiogram which will need follow-up as an outpatient. There is also some concern about some twitching she had in her foot periodically. There was concern that this could be seizure activity and an EEG was ordered however the patient did have a recent EEG done [facility] which was unremarkable for any acute findings. EEG was deferred at this time. She was able to discharge in stable condition in normal sinus rhythm on 12/24/2022. Her CT scan is pending at the time of discharge and will be reviewed by the rehab physician for initiation of anticoagulation after discharge. She is to follow-up with cardiology as noted in the discharge recommendations and her primary care physician within the 1 month after discharge from the rehab facility or sooner if recommended by rehab physician. Discharge diagnoses: Atrial fibrillation with RVR-resolved History of stroke Cerebrovascular disease Meningioma status post resection Mitral valve stenosis PAH Hypertension constipation type lipidemia Physical Exam Const alert, oriented x3, no apparent distress, average body habitus, no limitations and well nourished Constitutional Narrative: Elderly, white female, sitting up in bed watching television, nursing at bedside, patient appears comfortable and nontoxic General Appearance: cooperative, comfortable, well kempt and well developed Orientation / Consciousness: awake, oriented to person, oriented to place and oriented to time Exam Limitations: no limitations HEENT hearing grossly normal bilaterally and moist oral mucous membranes HEENT Narrative: Craniotomy incision noted with no signs of drainage or erythema, sutures in place Mallampati is 2-3, no thrush Eyes PERRL, EOMs intact bilaterally and conjunctivae normal Eyes Narrative: No scleral icterus Resp normal respiratory effort, no retractions, no use of accessory muscles and clear to auscultation bilaterally Auscultation: Negative for rales, rhonchi or wheezes Cardio regular rate, regular rhythm, S1 normal heart sound, S2 normal heart sound, no murmurs, no rub, no gallops and no clicks GI normal to inspection, nondistended, normoactive bowel sounds, soft to palpation and non-tender Extremity no clubbing, cyanosis or edema Neuro oriented x3 and moves all extremities Speech: speech normal Psych affect normal Mood & Affect: anxious Weight / BMI Weight Weight: 55.5 kg Body Mass Index (BMI) 27.4 ABG / Lab / Microbiology Data 12/24/22 05:39 12/24/22 05:39 Laboratory: Laboratory Results - last 24 hr 12/23/22 20:18: TSH 2.34 12/24/22 05:39: WBC 5.7, RBC 3.29 L, Hgb 9.7 L, Hct 30.1 L, MCV 91.5, MCH 29.5, MCHC 32.2, RDW Std Deviation 50.5 H, RDW Coeff of Marga 15.2 H, Plt Count 246, MPV 9.9, Immature Gran % (Auto) 2.300 H, Neut % (Auto) 67.6, Lymph % (Auto) 15.9 L, [place] % (Auto) 13.1 H, Eos % (Auto) 0.7, Baso % (Auto) 0.4, Absolute Neuts (auto) 3.9, Absolute Lymphs (auto) 0.91, Nucleated RBC % 0, Sodium 138, Potassium 4.2, Chloride 109 H, Carbon Dioxide 23.0, Anion Gap 6, BUN 17, Creatinine 0.59, Estim Creat Clear Calc 39.97, Est GFR (MDRD) Af Amer 127, Est GFR (MDRD) Non-Af 105, BUN/Creatinine Ratio 29.0 H, Glucose 159 H, Calcium 8.8, Total Bilirubin 0.70, AST 14 L, ALT 36, Alkaline Phosphatase 121 H, Total Protein 5.6 L, Albumin 2.9 L, Globulin 2.7, Albumin/Globulin Ratio 1.1 D/C Instructions Discharge Diet: Low fat / Low cholesterol Discharge Activity: Return to Normal Activity Meaningful Use Info Meaningful Use Diagnoses (Choose all that apply): None applicable Discharge Plan Admission Admit Date/Time: 12/23/22 18:32 Primary Reason for Your Visit: A fib with RVR Attending Provider: Alix Hudson Primary Care Provider: Monika Venegas Consulting Providers: Kourtney Thompson; Dudley Calderon; Nic Harvey; Domenic Goodson; German Dacosta; John Severino; Corey Easton; Antwon Tyler; Joanne,Juan Jose; Amelia Díaz; Gemma Cordova; Darshan Esparza; Hugo Burns; Howard Rivera; Jagdish Moncada COMPOSITION TILE LAYER; Kourtney Beasley COMPOSITION TILE LAYER; Lolly Alejandra PA; Laura Jacobo Discharge Orders/Prescriptions Prescriptions: New amiodarone 200 mg Tablet 200 mg PO DAILY Qty: 0 0RF Continued multivitamin Tablet 1 tablet PO DAILY hydrochlorothiazide 25 MG tablet 25 mg PO DAILY atorvastatin 10 MG tablet 10 mg PO QHS calcium carbonate-vitamin D3 1 EACH tablet 2 each PO DAILY cyanocobalamin (vitamin B-12) 500 MCG tablet,chewable 1,000 mcg PO DAILY ascorbic acid-elderberry fruit 1 EACH tablet,chewable 1 each PO DAILY cholecalciferol (vitamin D3) 125 MCG capsule 125 mcg PO DAILY acetaminophen [Tylenol] 325 mg tablet 650 mg PO Q4H PRN (Reason: pain) ascorbic acid (vitamin C) [C-500] 500 mg tablet 500 mg PO DAILY@1200 carvedilol [Coreg] 12.5 mg tablet 12.5 mg PO BIDCM Rx Instructions: must administer with a meal/food cephalexin 500 mg capsule 500 mg PO Q12H doxazosin [Cardura] 2 mg tablet 2 mg PO QHS Rx Instructions: hold if systolic BP less than 110 ferrous sulfate [Loly-Time] 325 mg (65 mg iron) tablet 325 mg PO DAILY@1200 linezolid 600 mg tablet 600 mg PO Q12H polyethylene glycol 3350 [Miralax] 17 gram powder in packet 17 g PO DAILY selenium 200 mcg capsule 200 mcg PO DAILY sodium chloride 1,000 mg tablet,soluble 2,000 mg PO BID zinc sulfate [Orazinc] 50 mg zinc (220 mg) capsule 220 mg PO DAILY Discontinued atenolol 50 tablet 50 mg PO DAILY Referrals / Follow Up: Monika Venegas MD [Primary Care Provider] - Within 1 Month Disposition Disposition (needs filled in before D/C Order can be placed): Inpatient Rehab Unit/Facility Charges/Coding Visit Charges Inpatient E&M: 51473 Disch Hosp
--- NOTE | 2022-12-24 11:42 | CASEMGMT ---
Patient's plan is to return to [facility] Acute Rehab Unit. Padmini PIZARRO
--- NOTE | 2022-12-24 11:50 | CT_ITS ---
STUDY: CT BRAIN WITHOUT CONTRAST REASON FOR EXAM: Female, 77 years old. recent brain surgery RADIATION DOSAGE (If Supplied By Facility): CTDIvol = ( 44.99 ) mGy, DLP = ( 796.11 ) mGycm TECHNIQUE: Transaxial CT imaging of the brain was performed without administration of intravenous contrast material. Individualized dose optimization techniques were used for this CT. 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 Interval appearance of dural closure material in the overlying prosthesis with cortical plate screw constructs. No visualized focal mass or infiltrative process of the brain parenchyma on the current study. Small postoperative subdural hygroma of the right frontal convexity without demonstrated midline shift. There is mild cerebral atrophy with widening of the extra-axial spaces and ventricular dilatation. There are areas of decreased attenuation within the white matter tracts of the supratentorial brain, consistent with microvascular disease changes. Normal basal ganglia and thalami. Normal brainstem. Normal cerebellum. There is no intracranial hemorrhage. There are no findings of an acute ischemic infarction. Normal visualized paranasal sinuses. CT/Brain/Head without Contrast IMPRESSION: 1. 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 Interval appearance of dural closure material in the overlying prosthesis with cortical plate screw constructs. No visualized focal mass or infiltrative process of the brain parenchyma on the current study. Small postoperative subdural hygroma of the right frontal convexity without demonstrated midline shift. Electronically Signed: Rafa Resendez MD at 13:03 EDT ,
--- NOTE | 2022-12-24 15:09 | CHAPLAIN ---
Type of Pastoral Visit ___ Initial Visit _x__ Follow-up Visit ___ On-call Visit ___ General Patient Visit ___ Spiritual Assessment ___ Family Conference ___ Bereavement ___ Rapid Response ___ Code Blue ___ Other (describe below) Pastoral Care Referral From _x__ Patient ___ Family ___ Nurse ___ Physician ___ Clinical Data Coordinator ___ Co Founder And Chief Strategy Officer ___ Other (describe below) Sacrament/Intervention _x__ Active listening ___ Anointing ___ Pentecostalism ___ Bereavement ___ Communion ___ Analy exploration ___ _x__ Life review _x_ Prayer ___ Reconciliation ___ Sacrament of Sick _x__ Supportive presence ___ Wedding ___ Other (describe below) Pastoral Comments patient had a change of medical status and was moved to PCU; pt expects to go back to Rehab for more therapy; pt gives her review of current health and progress in therapy; pt strongly desires to get home soon and she has been in hospitals for several weeks; pt stated that her livestock farm manager tried to visit yesterday but missed her; pt welcomes presence and prayer for her support
== END 2022-12-24 13:40 | DRG 308 ==
PROVIDERS: Admitting Provider Internal Medicine; PCP Family Medicine; Visit Provider Internal Medicine
DX: I48.0 Paroxysmal atrial fibrillation (principal); I63.9 Cerebral infarction, unspecified; G40.109 Localization-related (focal) (partial) symptomatic epilepsy and epileptic syndromes with simple partial seizures, not intractable, without status epilepticus; D32.9 Benign neoplasm of meninges, unspecified; E78.00 Pure hypercholesterolemia, unspecified; I10 Essential (primary) hypertension; I25.10 Atherosclerotic heart disease of native coronary artery without angina pectoris; I05.0 Rheumatic mitral stenosis; Z82.3 Family history of stroke; Z86.73 Personal history of transient ischemic attack (TIA), and cerebral infarction without residual deficits; Z98.890 Other specified postprocedural states
CPT/HCPCS: 36415; 70450; 80053; 84443; 85025; 93005; 97802; A4216

== ENCOUNTER → 2023-01-18 | Outpatient (CLI) | payer MEDICARE, OTHER, SELFPAY ==
[2023-01-18 17:53] LABS: Absolute Lymphocyte Count 0.91 X10^3/uL (0.83-4.51); Basophil# 0.02 X10^3/uL; Basophil% 0.3 % (0-1); Eosinophil# 0.12 X10^3/uL; Eosinophils% 1.5 % (0-5); Hematocrit 30.8 % (37-47); Hemoglobin 10.4 g/dL (12.0-15.0); Lymphocyte # 0.91 X10^3/ul (0.83-4.51); Lymphocyte % 11.7 % (19-41); Mean Corp Hgb Conc 33.8 g/dL (32-36); Mean Corpuscular Hgb 30.6 pg (27.0-32.0); Mean Corpuscular Volume 90.6 fL (81-99); Mean Platelet Vol. 10.5 fl (6.2-12.0); Monocyte# 0.71 X10^3/uL; Monocyte% 9.1 % (0-10); NRBC Flagged by Analyzer 0 % (0-5); Neutrophil # 5.96 X10^3/uL (2.7-7.7); Neutrophil % 76.8 % (47-70); Platelet Count 245 K/mm3 (150-450); RBC Distribution Width CV 15.1 % (11.6-14.6); RBC Distribution Width SD 49.6 fl (35.1-43.9); White Blood Count 7.8 K/mm3 (4.4-11.0)
[2023-01-18 18:10] LABS: Anion Gap 4 (5-15); BUN 16 mg/dL (7-18); BUN/Creat Ratio 22.3 RATIO (10-20); Calcium,Total 9.4 mg/dL (8.5-10.1); Chloride 98 mmol/L (98-107); Creatinine, Serum 0.72 mg/dL (0.55-1.02); EST Glomerular Filtration Rate 83 mL/min (>60); Est Glom Filt Rate - Afr Amer 101 mL/min (>60); Glucose 113 mg/dL (74-106); Potassium 4.4 mmol/L (3.5-5.1); Sodium Level 132 mmol/L (136-145)
== END | disposition home or self-care (01) ==
LOC: MFPLAB 15:56
PROVIDERS: PCP Family Medicine; Visit Provider Family Medicine
DX: R60.9 Edema, unspecified (principal)
CPT/HCPCS: 36415; 80048; 85025

== ENCOUNTER → 2023-07-19 | Outpatient (CLI) | payer MEDICARE, OTHER, SELFPAY ==
[2023-07-19 17:04] LABS: AST(SGOT) 18 U/L (15-37); Alanine Aminotransfer ALT/SGPT 29 U/L (13-56); Albumin, Serum 4.2 g/dL (3.2-5.0); Alkaline Phosphatase 84 U/L (45-117); Bilirubin, Direct 0.32 mg/dL (0.00-0.30); Free T3 2.1 pg/mL (2.18-3.98); Protein, Total 7.2 g/dL (6.4-8.2); T4 Free Direct 1.53 ng/dL (0.76-1.46); Thyroid Stim Hormone (TSH) 2.69 uIU/mL (0.358-3.74)
== END | disposition home or self-care (01) ==
LOC: LAB 14:33
PROVIDERS: PCP Family Medicine; Referring Provider Physician Assistant Medical; Visit Provider Physician Assistant Medical
DX: R53.81 Other malaise (principal); Z79.899 Other long term (current) drug therapy
CPT/HCPCS: 36415; 80076; 84439; 84443; 84481

== ENCOUNTER → 2023-07-28 | Outpatient (CLI) | payer MEDICARE, OTHER, SELFPAY ==
--- NOTE | 2023-07-28 14:34 | CDU_ITS ---
Reason For Study: bilateral carotid bruit Rt. Velocities/BP Lt. Velocities/BP Prox CCA 91.6/4.4 cm/sec. Prox CCA 73.2/14.2 cm/sec. Mid CCA 73.2/5.6 cm/sec. Mid CCA 60.9/15.5 cm/sec. Dist CCA 60.9/9.3 cm/sec. Dist CCA 68.3/10.6 cm/sec. Prox ICA 49.5/10.2 cm/sec. Prox ICA 69.5/20.4 cm/sec. Mid ICA 96.1/16.3 cm/sec. Mid ICA 89.1/30.2 cm/sec. Dist ICA 50.7/9.0 cm/sec. Dist ICA 58.9/20.4 cm/sec. Rt. ICA/CCA = 1.3. Lt. ICA/CCA = 1.5. Prox ECA 76.7 cm/sec. Prox ECA 119.9/3.5 cm/sec. Rt. Vert. 75.6/10.6 cm/sec. Lt. Vert. 62.1/10.6 cm/sec. Right Extracranial There is homogeneous, smooth atherosclerotic plaque noted in the right common carotid artery. There is heterogeneous, irregular atherosclerotic plaque noted in the right internal carotid artery. There is heterogeneous, irregular atherosclerotic plaque noted in the right external carotid artery. Antegrade flow is noted in the right vertebral artery. Left Extracranial There is intimal thickening but no significant atherosclerotic plaque noted in the left common carotid artery. There is intimal thickening but no significant atherosclerotic plaque noted in the left internal carotid artery. The left internal carotid artery is very tortuous. There is intimal thickening but no significant atherosclerotic plaque noted in the left external carotid artery. Antegrade flow is noted in the left vertebral artery. VL/Carotid Duplex Ultrasound Interpretation Summary Normal right extracranial internal carotid. Mild (<50%) stenosis left extracranial internal carotid. Patent and antegrade vertebrals bilaterally. Ordering Physician: Lolly Alejandra Referring Physician: Lolly Alejandra Performed By: Chacho Roper RVT
== END | disposition home or self-care (01) ==
LOC: CVS 14:30
PROVIDERS: PCP Family Medicine; Referring Provider Physician Assistant Medical; Visit Provider Physician Assistant Medical
DX: R09.89 Other specified symptoms and signs involving the circulatory and respiratory systems (principal)
CPT/HCPCS: 93880

== ENCOUNTER 2023-10-12 18:00 | Outpatient (RCR) | payer MEDICARE, OTHER, SELFPAY ==
--- NOTE | 2023-04-21 18:55 | HP.PTEVAL_ITS ---
Patient's Visit Information Visit Information Visit Information: FREDO MCGUIRE is a 77 year old F referred to Physical Therapy by Dr. Monika Venegas MD with a diagnosis of Stroke. Date of Evaluation: 04/21/23 Physical Therapist: Corey Zhao, KRISTOFERT, OCS, CSCS Visit Plan Frequency: 3x /Week Duration: 4-6 Weeks Plan: 3x/week for 4-6 weeks for 1. Gait training for step length/height, safety and confidence with gait with decreasing AD as safety allows, cane then no AD. 2. standing balance and weight shifts 3. steps, transfers. 4. progressive LE and balance HEP with pics. Subjective Subjective: Recuperating from 2 surgeries. Had brain tumor surgery in skull. Replaced skull and 10+ hour surgery, had a ministroke with slurred speech. Starting to recover and had a brain bleed and another surgery. First surgery was November 16. No falls but has a deep fear of falling. Second surgery a week later. 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 Done in March. Had home PT. Was using cane to walk in rehab. Started working with cane at when sent for outpatient PT. Feels weak. Feels wants to sleep alot. Sleeps alot during the day and not tired at night. Spends day helping to fold clothes and do dishes, reads Sensorist and watches TV. Exercises: stand at sink and lifting toes and heels, hip extension, stand knee flexion, hip abduction 20reps daily. LE movements on couch. Had skin graft from second surgery from hip Basic ADLS at home: dresses self, needs help with elastic hose. Bathroom I, showering with dtr helping step in tub. L side is weak and numb. Has shower chair. 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 No walker or cane needed prior. Has basement steps and front porch, Does front steps avoids basement steps. Porch steps with supervision with railing. Dtr staying with her right now. 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 Walks out with larger steps due to cues and education. Walks with cane hesitant but able with SBA, Without cane with Min A for balance and fear. Needs hands to exit chair and sit and is hesitant and fearful. bed trasnfers are slow and labored adn weakness evident in core. Steps preferring up with L and down with L and needing cane and rail or two rails and SBA Stand balance with cane is good, without AD is good ec for 30 seconds. LE strength 3+/5 symettrically reflexes 1/3 patella and achilles B. Sensation seem slightly at deficit L lE vs R to gross light touch. Coordination to reciprocal toe tap is min deficits and slow. UE AROM WFL and strength at 3+. Balance/Special Test Scores Lower Extremity Functional Score: 20 Goals Goal 1:: Walk with cane into and out of PT mod I Goal Time Frame: 4-6 Weeks Goal 2:: Steps reciprocal with one rail I Goal Time Frame: 4-6 Weeks Goal 3:: I appropriate HEP to continue progress with LE strength adn weoght shift and confidence. Goal Time Frame: 4-6 Weeks Goal 4:: Step over edge into tub safely adn I Goal Time Frame: 4-6 Weeks Rehabilitation Potential Physical Therapy Diagnosis: weakness and L leg proprio deficits from stroke limiting confidence with gait and mobility. Rehabilitation Potential: Fair Anticipated Interventions Patient/Client Instruction: Educate patient on: Condition and Risk Factors For the Purpose of:: To decrease pain, To increase ROM, To improve nutrient delivery to tissue, To improve muscle performance and motor function, To increase tolerance to activity/condition/position and To improve gait and locomotor functions Therapeutic Exercise to Include: Strength training, Balance training, Postural training, Flexibilty training and Gait and locomotor training For the Purpose of:: To improve nutrient delivery to tissue, To improve muscle performance and motor function, To increase tolerance to activity/condition/position, To improve ability of physical actions for home/community/work/leisure, To improve gait and locomotor functions, To improve balance and To improve safety with gait Text: Thank you for the opportunity to evaluate your patient. For Medicare and Medicare HMO plans, please review the plan of care and approve it. It will need to be FAXED BACK to us at [phone] for Medicare purposes. For Medicare only, by signing this I certify the plan of care. Please let me know if there are questions or concerns regarding this plan of care. Physician Signature: Date:
--- NOTE | 2023-07-06 17:24 | HP.PTREVAL ---
Re-Evaluation Intro: Dr. Monika Venegas MD, It has been my pleasure to treat FREDO MCGUIRE over the last 24 visits for Stroke. Please see the progress note below for an update on the physical therapy plan of care! Subjective Subjective: Went to [facility] this morning first time this year. Used cane alot but walker to go to bathroom. Wants to use cane to get around more instead of walker. getting in tub is still difficult at times. Used cane and railing on steps at [employer] and impressed her friends. Dtr present and sees huge improvements getting up big step into car with less support but still needs more. Objective Objective/Function: Walking with walker today with good step length entire session, tends to lean FW on walker but up tall and good form otherwise adn very safe. Can get out of chair easily without UE but holds onto it tight at first when getting up and lacks soncifdence to let go , Cotninues to slow down at turns with cane and need frequesnt breaks. Mentally is scared at times and panics to feet stuck to the floor limitig balance potential. Overall significat mobility improvements and appropriate to continue toward specific goals with a fair prognosis. LEFS worse cause dtr helped her fill it out day one. Goals 1. step into tub I holding on over tub edge 2. walk 50 feet (into [facility] or restaurant I with cane) 3. Step up 10 inch step I with one rail 4. stand at counter and bend to picker / packer object/lean over counter without LOB All 4-6 week goals and fair to questionable prognosis. Plan Plan Plan: 3x/week for 4 weeks (pt to walk with wh walker as much as possible at home in limited environment and with weather. Also to continue leg strengthening exercises daily 3x10) Please work in therapy on funcitonal mobility towward goals of weight shifting, walk short distances with cane safely and reach , bending and recovering as she might have to do in kitchen, also stepping over tub holding on and larger steps that she has at [facility] and into car. Balance/Gait/Functional tests Balance/Special Test Scores Lower Extremity Functional Score: 11 TUG Test Time Seconds: 30 Tug Test: 20-30sec.=variable mobility 30 Second Chair Rise Test Seconds: 13 6 Minute Walk Test: 580 feet 416ft on 05/16/23 Goals Goals Goal 1:: Walk with cane into and out of PT mod I Goal Time Frame: 4-6 Weeks Goal Progress: NA on her own, yes A. Goal 2:: Steps reciprocal with one rail I Goal Time Frame: 4-6 Weeks Goal Progress: Goal Met with cane Goal 3:: I appropriate HEP to continue progress with LE strength adn weoght shift and confidence. Goal Time Frame: 4-6 Weeks Goal Progress: Goal Met Goal 4:: Step over edge into tub safely adn I Goal Time Frame: 4-6 Weeks Goal Progress: Not Progressing, approp Goal 5:: walk I with cane and bend and recover easily and I to floor Goal Time Frame: 4-6 Weeks Goal Progress: NEW GOAL Anticipated Interventions Anticipated Interventions Patient/Client Instruction: Educate patient on: Condition and Risk Factors For the Purpose of:: To decrease pain, To increase ROM, To improve nutrient delivery to tissue, To improve muscle performance and motor function, To increase tolerance to activity/condition/position and To improve gait and locomotor functions Therapeutic Exercise to Include: Strength training, Balance training, Postural training, Flexibilty training and Gait and locomotor training For the Purpose of:: To improve nutrient delivery to tissue, To improve muscle performance and motor function, To increase tolerance to activity/condition/position, To improve ability of physical actions for home/community/work/leisure, To improve gait and locomotor functions, To improve balance and To improve safety with gait Re-Evaluation Ending Re-evaluation ending: Please do not hesitate to contact me at [phone] by phone or if you have questions or concerns regarding this new plan of care! Sincerely, Corey Zhao, DPT, OCS, CSCS
--- NOTE | 2023-08-15 16:23 | HP.PTREVAL ---
Re-Evaluation Intro: Dr. Mnoika Venegas MD, It has been my pleasure to treat FREDO MCGUIRE over the last 36 visits for Stroke. Please see the progress note below for an update on the physical therapy plan of care! Subjective Subjective: To doctor in October. MRI FOR 3 MO F/U tuesday. Doing well overall but still having trouble with turning and reaching into cupboards. Dtr says she is exercising at home and walking with A into places with cane but needs walker if on her own. Objective Objective/Function: Pt still not doing things at home that she can likely do and it was recommended she do these things as safety allows. TUG is slow mostly now b/c of taking 12 seconds to turn adn sit down once arrives at chair(mental vs physical). 30 second sit to stand test is good today. Walking a lap with cane today with therapist min A for LOB when her feet stops but body does not(panic vs mental). pt is not confident with wt shifts at this point especially funcitonally. Overall pt is much safer with ambulation and mod I with wh walker. Faster with walking annie stronger with 30 sec sit to stand. She c/o her L quad less which is still tight sometimes. Due to continued progress, she is appropriate to work toward further funcitonal goals and a fair prognosis. Plan Plan Plan: 2x/week weaning therapy, pt to work at home on gait with cane with others able bodied to assist but lots of wh walker walking otherwise adn HEP including sit to stand 2x15 daily. In clinic please work on 2 goals of 1. turning to sit quicker with weight shifts, practice, tilt board...and 2. reaching into upper and lower cupboards with support with reaching under plinths and into cupboards in clinic. Reaching weight shifting execises. Balance/Gait/Functional tests Balance/Special Test Scores Lower Extremity Functional Score: 37 TUG Test Time Seconds: 33 Tug Test: >30sec.=impaired mobility 30 Second Chair Rise Test Seconds: 14 6 Minute Walk Test: 580 feet 416ft on 05/16/23 Goals Goals Goal 1:: Walk with cane into and out of PT mod I Goal Time Frame: 4-6 Weeks Goal Progress: with A and max med I Goal 2:: Steps reciprocal with one rail I Goal Time Frame: 4-6 Weeks Goal Progress: Goal Met with cane Goal 3:: 22 seconds on Tug to show improved turning efficiency adn safety Goal Time Frame: 4-6 Weeks Goal Progress: NEW GOAL Goal 4:: Step over edge into tub safely adn I Goal Time Frame: 4-6 Weeks Goal Progress: Goal Met Goal 5:: walk I with cane and bend and recover easily and I to floor Goal Time Frame: 4-6 Weeks Goal Progress: Goal Met Goal 6:: reach into upper and lower cupboards with support safe and I to get plates. Goal Time Frame: 4-6 Weeks Goal Progress: NEW GOAL Anticipated Interventions Anticipated Interventions Patient/Client Instruction: Educate patient on: Condition and Risk Factors For the Purpose of:: To decrease pain, To increase ROM, To improve nutrient delivery to tissue, To improve muscle performance and motor function, To increase tolerance to activity/condition/position and To improve gait and locomotor functions Therapeutic Exercise to Include: Strength training, Balance training, Postural training, Flexibilty training and Gait and locomotor training For the Purpose of:: To improve nutrient delivery to tissue, To improve muscle performance and motor function, To increase tolerance to activity/condition/position, To improve ability of physical actions for home/community/work/leisure, To improve gait and locomotor functions, To improve balance and To improve safety with gait Re-Evaluation Ending Re-evaluation ending: Please do not hesitate to contact me at [phone] by phone or if you have questions or concerns regarding this new plan of care! Sincerely, Corey Zhao, DPT, OCS, CSCS
--- NOTE | 2023-09-20 18:19 | HP.PTREVAL ---
Re-Evaluation Intro: Dr. Monika Venegas MD, It has been my pleasure to treat FREDO MCGUIRE over the last 46 visits for Stroke. Please see the progress note below for an update on the physical therapy plan of care! Subjective Subjective: Walked at home alot yesterday with dtr. Going to [facility] study weekly. Still complaining of L leg tightness and discomfort without pattern and is frustrating adn almost mentally captivating to patient who focusses on this. Objective Objective/Function: TUG is better by 10 seconds but still requires focus and extra time to turn due to confidence, lack of focus, and metal fear. Walked one lap today with cane with 3 stops and no LOB corrections by PT but still requires SBA for safety. Steps reciprocal with one rail and cane Mod I. Overall better and fucnitonal but has fallen back on some of the home exercises and needs update in prep for d/c Plan Plan Plan: weekly x 4, please review HEP with new pics as she seems to be focussing on the easier exercises at home, walk and step each visit and focus on turning. HEP should be : heel raises x10 hip abd/ext x 10 stadn knee flexion x 10 march x10 no hands in here chair sit to stand 2x10 foam stance eo then ec(cues and safety needed) 2 min each side step no UE 10 feet x1 step and recover 'side step side step and rotate SLS Please give pics and challenge as appropriate in prep for d/c Balance/Gait/Functional tests Balance/Special Test Scores Lower Extremity Functional Score: 37 TUG Test Time Seconds: 22 Tug Test: >30sec.=impaired mobility 30 Second Chair Rise Test Seconds: 14 6 Minute Walk Test: 580 feet 416ft on 05/16/23 Goals Goals Goal 1:: Walk with cane into and out of PT mod I Goal Time Frame: 4-6 Weeks Goal Progress: Met with SBA Goal 2:: Steps reciprocal with one rail I Goal Time Frame: 4-6 Weeks Goal Progress: Goal Met with cane Goal 3:: 22 seconds on Tug to show improved turning efficiency adn safety Goal Time Frame: 4-6 Weeks Goal Progress: 23 seconds, good progress Goal 4:: Maintain 23 second TUG, 14 on 30 sec sit to stand and ability to walk with cane one lap without LOB all maintained with 1x/week therapy adn HEP Goal Time Frame: 4-6 Weeks Goal Progress: NEW GOAL Goal 5:: walk I with cane and bend and recover easily and I to floor Goal Time Frame: 4-6 Weeks Goal Progress: Goal Met Goal 6:: reach into upper and lower cupboards with support safe and I to get plates. Goal Time Frame: 4-6 Weeks Goal Progress: Goal Met Anticipated Interventions Anticipated Interventions Patient/Client Instruction: Educate patient on: Condition and Risk Factors For the Purpose of:: To decrease pain, To increase ROM, To improve nutrient delivery to tissue, To improve muscle performance and motor function, To increase tolerance to activity/condition/position and To improve gait and locomotor functions Therapeutic Exercise to Include: Strength training, Balance training, Postural training, Flexibilty training and Gait and locomotor training For the Purpose of:: To improve nutrient delivery to tissue, To improve muscle performance and motor function, To increase tolerance to activity/condition/position, To improve ability of physical actions for home/community/work/leisure, To improve gait and locomotor functions, To improve balance and To improve safety with gait Re-Evaluation Ending Re-evaluation ending: Please do not hesitate to contact me at [phone] by phone or if you have questions or concerns regarding this new plan of care! Sincerely, Corey Zhao, DPT, OCS, CSCS
== END 2023-10-12 19:00 | disposition home or self-care (01) ==
LOC: PT 18:00
PROVIDERS: PCP Family Medicine; Referring Provider Family Medicine; Visit Provider Family Medicine
DX: Z86.73 Personal history of transient ischemic attack (TIA), and cerebral infarction without residual deficits (principal)
CPT/HCPCS: 97110; 97116; 97140; 97162; 97164; 97530

== ENCOUNTER → 2023-11-18 | Outpatient (CLI) | payer MEDICARE, OTHER, SELFPAY ==
[2023-11-18 13:37] LABS: Protein, Urine (Random) 13.1 mg/dL (<11.9); Protein:Creat Ratio 463 mg/g CRE (0-200)
[2023-11-19 01:56] LABS: AST(SGOT) 29 U/L (15-37); Alanine Aminotransfer ALT/SGPT 45 U/L (13-56); Anion Gap 8 (5-15); BUN 11 mg/dL (7-18); Calcium,Total 9.3 mg/dL (8.5-10.1); Chloride 94 mmol/L (98-107); Cholesterol 158 mg/dL (200); Creatinine, Serum 0.73 mg/dL (0.55-1.02); EST Glomerular Filtration Rate 81 mL/min (>60); Est Glom Filt Rate - Afr Amer 99 mL/min (>60); Glucose 114 mg/dL (74-106); High Density Lipoprotein 67 mg/dL; Potassium 3.6 mmol/L (3.5-5.1); Sodium Level 131 mmol/L (136-145); Triglycerides 67 mg/dL; Very Low Density Lipoprotein 13 mg/dL (5-40)
== END | disposition home or self-care (01) ==
LOC: MFPLAB 10:26
PROVIDERS: PCP Family Medicine; Visit Provider Family Medicine
DX: I10 Essential (primary) hypertension (principal); E78.5 Hyperlipidemia, unspecified
CPT/HCPCS: 36415; 80048; 80061; 82570; 84156; 84450; 84460

== ENCOUNTER → 2023-12-16 | Outpatient (CLI) | payer MEDICARE, OTHER, SELFPAY ==
[2023-12-16 15:23] LABS: Anion Gap 9 (5-15); BUN 15 mg/dL (7-18); BUN/Creat Ratio 18.1 RATIO (10-20); Calcium,Total 9.5 mg/dL (8.5-10.1); Chloride 96 mmol/L (98-107); Creatinine, Serum 0.83 mg/dL (0.55-1.02); EST Glomerular Filtration Rate 70 mL/min (>60); Est Glom Filt Rate - Afr Amer 85 mL/min (>60); Glucose 98 mg/dL (74-106); Potassium 3.4 mmol/L (3.5-5.1); Sodium Level 131 mmol/L (136-145)
== END | disposition home or self-care (01) ==
PROVIDERS: PCP Family Medicine; Referring Provider Family Medicine; Visit Provider Family Medicine
DX: I10 Essential (primary) hypertension (principal); E87.1 Hypo-osmolality and hyponatremia
CPT/HCPCS: 36415; 80048

== ENCOUNTER → 2024-01-13 | Outpatient (CLI) | payer MEDICARE, OTHER, SELFPAY ==
[2024-01-13 18:02] LABS: Anion Gap 7 (5-15); BUN 15 mg/dL (7-18); BUN/Creat Ratio 18.5 RATIO (10-20); Chloride 100 mmol/L (98-107); Creatinine, Serum 0.81 mg/dL (0.55-1.02); EST Glomerular Filtration Rate 72 mL/min (>60); Est Glom Filt Rate - Afr Amer 87 mL/min (>60); Glucose 161 mg/dL (74-106); Potassium 3.3 mmol/L (3.5-5.1); Sodium Level 135 mmol/L (136-145)
== END | disposition home or self-care (01) ==
LOC: MTLAB 15:26
PROVIDERS: PCP Family Medicine; Referring Provider Family Medicine; Visit Provider Family Medicine
DX: E87.1 Hypo-osmolality and hyponatremia (principal)
CPT/HCPCS: 36415; 80048

== ENCOUNTER → 2024-02-24 | Outpatient (CLI) | payer MEDICARE, OTHER, SELFPAY ==
[2024-02-24 17:57] LABS: ALB/GLOB Ratio 1.3 RATIO (0.9-2.4); AST(SGOT) 22 U/L (15-37); Alanine Aminotransfer ALT/SGPT 33 U/L (13-56); Albumin, Serum 3.9 g/dL (3.2-5.0); Alkaline Phosphatase 81 U/L (45-117); Anion Gap 7 (5-15); BUN 12 mg/dL (7-18); BUN/Creat Ratio 16.5 RATIO (10-20); Calcium,Total 9.1 mg/dL (8.5-10.1); Chloride 96 mmol/L (98-107); Creatinine, Serum 0.73 mg/dL (0.55-1.02); EST Glomerular Filtration Rate 82 mL/min (>60); Est Glom Filt Rate - Afr Amer 99 mL/min (>60); Globulin 2.9 g/dL (2.2-4.2); Glucose 145 mg/dL (74-106); Potassium 3.4 mmol/L (3.5-5.1); Protein, Total 6.8 g/dL (6.4-8.2); Sodium Level 130 mmol/L (136-145)
== END | disposition home or self-care (01) ==
LOC: MTLAB 15:33
PROVIDERS: PCP Family Medicine; Referring Provider Family Medicine; Visit Provider Family Medicine
DX: E87.6 Hypokalemia (principal)
CPT/HCPCS: 36415; 80053

== ENCOUNTER 2024-03-09 15:30 | Outpatient (RCR) | payer MEDICARE, OTHER, SELFPAY ==
--- NOTE | 2023-11-22 15:22 | HP.OTEVAL_ITS ---
Patient's Visit Information Visit Information Visit Information: FREDO MCGUIRE is a 78 year old F, referred to Occupational Therapy by Dr. Monika Venegas MD, with a diagnosis of CVA. Date of Evaluation: 11/22/23 Occupational Therapist: Lauryn Tubbs Subjective Subjective: This 78 year old female present to this date for OT eval with dx of CVA. 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 pt with internal bleeding then back to surgery pt brought back to [facility] december 06 for rehabilitation drain tube was taken out and began having leg pain. Pt was in rehab then home health therapy. underwent radiation to assure does not come back home therapy started back up after radiation complete. pt did have a fall in october which set pt back due to lack of confidence. pt does receive assistance with bathing washing of hair and getting in and out of shower, does require occ assist for compression socks. pt is R hand dominant. Per family member pt was affected on both sides of body. pt enjoys counter cross stitching. Objective Objective/Observation: Pt arrives this date using rollator as means of mobility to therapy room. This pt requiring cues to assure safety as well as problem solving of tasks. Pt relies on family member during intake to answer majority of detailed questions for her. ROM Shoulder: wfl Elbow: wfl Forearm: wfl Wrist: wfl CMC: wfl MP: wfl IP: wfl Radial Abduction: wfl Palmar Abduction: wfl Opposition: wfl MP: wfl PIP: wfl DIP: wfl ROM Comments: within normal range Strength Shoulder: L 8.4 R 4.9 pounds Elbow: L 10.7 R 8.3 pounds Behavioral Sciences Instructor: L 30 R 25 pounds Lateral Pinch: L 4 R 5 pounds Tripod Pinch: L2 R 1 pounds Sensation Sensation Comments: L numbness and tingling 2.83 semmes Nine Hole Peg Right: 33 sec Left: 55 sec In-Hand Manipulation Finger to Palm Translation: Moderate - Right and Moderate - Left Palm to Finger Translation: Moderate - Right and Moderate - Left Goals Goal:: pt will increase L shoulder flexion strength to 15 pounds in order to maximize I in self care as well as light IADL tasks pt will increase R shoulder flexion strength to 10 pounds in order to maximize I in self care as well as light IADL tasks pt will increase L bicep strength to 15 pounds in order to maximize I in self care tasks as well as light IADL tasks pt will increase R bicep strength to 13 pounds in order to maximize I in self care tasks as well as light IADL tasks pt will improve L local delivery truck driver strength to 35 pounds or more in order to maximize I in light IADL tasks as well as cross stitching pt will improve R local delivery truck driver strength to 30 pounds or more in order to maximize I in light IADL tasks as well as cross stitching Goal:: Pt will improve L hand coordination with improvement in 9 hole test scoring 45 sec or less in order to increase I in IADL as well as cross stitching task pt will demonstrate the ability to manipulation and manage 5/5 buttons of various size in order to maximize I in ADL tasks Goal:: pt will completing hair washing task set up assistance in order to return to PLOF Rehabilitation General Assessment: This 78 year old female presents s/p brain tumor removal x4 mini vera and brain bleed as well as radiation treatment within the past year time frame. Pt presents with instability in standing, decreased overall aerobic capacity to sustained task, decreased UB strength as well as FMC dexterity in hand manipulation tasks impacting ability to perform self care tasks as well as light IADL tasks. Rehabilitation Potential: Good Anticipated Interventions Anticipated Interventions: A/AAROM/PROM, Strengthening, Joint Protection/Energy Conservation, Fine Motor Coord/Antelmo, Neuro Reeducation, ADL Training, Education re assistive Equipment, Education re Diagnosis, Caregiver Training and Home Program Visit Plan Frequency: 2x /Week Duration: 6 Weeks General Plan: strengthening FMC coordination in hand manipulation adaptive tool training joint protection TEXT: Thank you for the opportunity to evaluate your patient. For Medicare and Medicare HMO plans, please review the plan of care and approve it. It will need to be FAXED BACK to us at [phone] for Medicare purposes. Please let me know if there are questions or concerns regarding this plan of ca re. Physician Signature: Date:
--- NOTE | 2024-01-10 15:54 | OTREVAL_ITS ---
Re-Evaluation Intro: Dr. Monika Venegas MD, It has been my pleasure to treat FREDO MCGUIRE over the last 11 visits for CVA. Please see the progress note below for an update on the occupational therapy plan of care! Subjective Subjective: arrives with daughter doing well no new concners Plan Plan Frequency: 2x /Week Duration: 6 Weeks Visits in this POC: (Insurance Limit: $2330) 6 weeks (2x week) Plan: AROM/AAROM/PROM strengthening coordination Goals Goals Patient Goals: Regain Strength, Improve Fine Motor Skills, Use Hand/Wrist/Arm Normally Again, Be More Independent in ADLS, Resume Former Household Responsibilities (Cooking,Cleaning,Yard, etc.) and Resume Hobbies Goal:: pt will increase L shoulder flexion strength to 15 pounds in order to maximize I in self care as well as light IADL tasks 01/10/24: 11.5 pounds pt will increase R shoulder flexion strength to 10 pounds in order to maximize I in self care as well as light IADL tasks 01/10/24: 10.2 GOAL MET NEW: pt will increase R shoulder flexion strength to 12 pounds in order to maximize I in self care as well as light IADL tasks pt will increase L bicep strength to 15 pounds in order to maximize I in self care tasks as well as light IADL tasks 01/10/24: 11.8# pt will increase R bicep strength to 13 pounds in order to maximize I in self care tasks as well as light IADL tasks 01/10/24: 9# pt will improve L supervising editor news reel strength to 35 pounds or more in order to maximize I in light IADL tasks as well as cross stitching 01/10/24: 25# pt will improve R supervising editor news reel strength to 30 pounds or more in order to maximize I in light IADL tasks as well as cross stitching 01/10/24: 22# Goal:: Pt will improve L hand coordination with improvement in 9 hole test scoring 45 sec or less in order to increase I in IADL as well as cross stitching task 01/10/24: 29 sec GOAL MET pt will demonstrate the ability to manipulation and manage 5/5 buttons of various size in order to maximize I in ADL tasks able to button 4/4 small buttons this session ongoing Goal:: pt will completing hair washing task set up assistance in order to return to PLOF ongoing Anticipated Interventions Anticipated Interventions Anticipated Interventions: A/AAROM/PROM, Strengthening, Joint Protection/Energy Conservation, Fine Motor Coord/Antelmo, Neuro Reeducation, ADL Training, Education re assistive Equipment, Education re Diagnosis, Caregiver Training and Home Program Re-Evaluation Ending Re-evaluation ending: Please do not hesitate to contact me at [phone] by phone or if you have questions or concerns regarding this new plan of care! Sincerely, Lauryn Tubbs
--- NOTE | 2024-01-19 09:02 | HP.PTREVAL ---
Re-Evaluation Intro: Dr. Monika Venegas MD, It has been my pleasure to treat FREDO MCGUIRE over the last 63 visits for Stroke. Please see the progress note below for an update on the physical therapy plan of care! Subjective Subjective: Doing exercises at home daily. Legs still don't feel normal and feel not right but have felt that way since this incident. Staying at home by self one night per week. Using walker at home. Objective Objective/Function: one lap 8 minutes with 2 LOB when you s. W with body and not feet when she stops walking causing her to tumble FW. Decent steps and movement today until she stops which she does often in response to others in her visual field or stress etc.Dtr adn her state difficulty getting items out of microwave adn onto tray to table and refrigerator due to standing and reaching balance. Much education today on likely reaching maximum mobility with her confidence and limitations and need to use wh walker forever. They want to get better with getting items from fridge/microwave onto walker to push them to table. mental confidence continues to be a problem as well as legs not feelign right and have not since her incident. I educated her that they likely will not but doctor will be a sharon person totalk to this about. New goal and fair prognosis for that goal. Prepared pt and dtr for maximum medical improvement. Plan Plan Plan: 2x/week for 8 visits until end February to work strictyl on... 1. standing reaching balance to mimic moving items from fridge/microwave to tray on walker and pushing them safely. 2. Answer and progress any exercises via HEP, work to standing balance and reach at home with pics. Balance/Gait/Functional tests Balance/Special Test Scores Lower Extremity Functional Score: 23 TUG Test Time Seconds: 31 Tug Test: >30sec.=impaired mobility 30 Second Chair Rise Test Seconds: 17 Goals Goals Goal 1:: 30 seconds on TUG to show improved mobility. Goal Time Frame: 6-8 Weeks Goal Progress: Goal Met Goal 2:: Pt compliant 5x/week with full HEP to help limit effects of sedentarism Goal Time Frame: 6-8 Weeks Goal Progress: Goal Met subjectively Goal 3:: 10 on 30 sec STS to show improved strength and confidence. Goal Time Frame: 6-8 Weeks Goal Progress: Goal Met Goal 4:: Maintain 23 seconds TUG, 14 on 30 sec sit to stand and ability to walk with one cane one lap without LOB with 1x/week PT Goal Time Frame: 4-6 Weeks Goal Progress: Has been worse. Goal 5:: walk one lap at in under 10 minutes with cane and CGA Goal Time Frame: 6-8 Weeks Goal Progress: Goal Met Goal 6:: place object on walker from a shelf with twohands and good weight shift and push it across floor 8/8 x placing it back on shelf with two hands without LOB. Goal Time Frame: 4-6 Weeks Goal Progress: NEW GOAL Anticipated Interventions Anticipated Interventions Patient/Client Instruction: Educate patient on: Condition For the Purpose of:: To improve gait and locomotor functions Therapeutic Exercise to Include: Strength training and Gait and locomotor training Re-Evaluation Ending Re-evaluation ending: Please do not hesitate to contact me at [phone] by phone or if you have questions or concerns regarding this new plan of care! Sincerely, Corey Zhao, DPT, OCS, CSCS
--- NOTE | 2024-02-23 17:07 | HP.OTREVAL ---
Re-Evaluation Intro: Dr. Monika Venegas MD, It has been my pleasure to treat FREDO MCGUIRE over the last 20 visits for CVA. Please see the progress note below for an update on the occupational therapy plan of care! Subjective Subjective: pt arrives with family doing well no new concerns Objective Objective/Function: L shoulder 9.9# R shoulder 9.5# L bicep 16.2# R bicep 14.1# L manager community development 30# R manager community development 35# Plan Plan Frequency: 2x /Week Duration: 6 Weeks Visits in this POC: (Insurance Limit: $2330) 6 weeks (2x week) Plan: AROM/AAROM/PROM strengthening coordination Goals Goals Patient Goals: Regain Strength, Improve Fine Motor Skills, Use Hand/Wrist/Arm Normally Again, Be More Independent in ADLS, Resume Former Household Responsibilities (Cooking,Cleaning,Yard, etc.) and Resume Hobbies Goal:: pt will increase L shoulder flexion strength to 15 pounds in order to maximize I in self care as well as light IADL tasks 01/10/24: 11.5 pounds 02/22: 9/9 pounds pt will increase R shoulder flexion strength to 10 pounds in order to maximize I in self care as well as light IADL tasks 01/10/24: 10.2 GOAL MET NEW: pt will increase R shoulder flexion strength to 12 pounds in order to maximize I in self care as well as light IADL tasks 02/22: 9.5# pt will increase L bicep strength to 15 pounds in order to maximize I in self care tasks as well as light IADL tasks 01/10/24: 11.8# 02/22:16.2# GOAL MET pt will increase R bicep strength to 13 pounds in order to maximize I in self care tasks as well as light IADL tasks 01/10/24: 9# 02/22:14.1# GOAL MET pt will improve L manager community development strength to 35 pounds or more in order to maximize I in light IADL tasks as well as cross stitching 01/10/24: 25# 02/22: 30# pt will improve R manager community development strength to 30 pounds or more in order to maximize I in light IADL tasks as well as cross stitching 01/10/24: 22# 02/22: 35# GOAL MET Goal:: Pt will improve L hand coordination with improvement in 9 hole test scoring 45 sec or less in order to increase I in IADL as well as cross stitching task 01/10/24: 29 sec GOAL MET pt will demonstrate the ability to manipulation and manage 5/5 buttons of various size in order to maximize I in ADL tasks able to do 5/5 buttons with button hook as needed Goal:: pt will completing hair washing task set up assistance in order to return to PLOF PR GOAL MET Anticipated Interventions Anticipated Interventions Anticipated Interventions: A/AAROM/PROM, Strengthening, Joint Protection/Energy Conservation, Fine Motor Coord/Antelmo, Neuro Reeducation, ADL Training, Education re assistive Equipment, Education re Diagnosis, Caregiver Training and Home Program Re-Evaluation Ending Re-evaluation ending: Please do not hesitate to contact me at [phone] by phone or if you have questions or concerns regarding this new plan of care! Sincerely, Lauryn Tubbs
--- NOTE | 2024-03-01 17:06 | HP.OTDCSUM ---
Discharge Summary D/C Summary: It has been my pleasure to treat FREDO MCGUIRE under orders from Dr. Monika Venegas MD, for the diagnosis of CVA for a total of 22 visit(s). Please see the following information for a summary of their discharge status. Overall Improvement % Improvement: 35 Objective Objective/Function: L shoulder 11.3# R shoulder 10.7# Goals Patient Goals: Regain Strength, Improve Fine Motor Skills, Use Hand/Wrist/Arm Normally Again, Be More Independent in ADLS, Resume Former Household Responsibilities (Cooking,Cleaning,Yard, etc.) and Resume Hobbies Goal:: pt will increase L shoulder flexion strength to 15 pounds in order to maximize I in self care as well as light IADL tasks 01/10/24: 11.5 pounds 02/22: 9/ pounds 03/01/24: 11.3 pounds NOT MET pt will increase R shoulder flexion strength to 10 pounds in order to maximize I in self care as well as light IADL tasks 01/10/24: 10.2 GOAL MET NEW: pt will increase R shoulder flexion strength to 12 pounds in order to maximize I in self care as well as light IADL tasks 02/22: 9.5# 03/01/24: 10.7# NOT MET pt will increase L bicep strength to 15 pounds in order to maximize I in self care tasks as well as light IADL tasks 01/10/24: 11.8# 02/22:16.2# GOAL MET pt will increase R bicep strength to 13 pounds in order to maximize I in self care tasks as well as light IADL tasks 01/10/24: 9# 02/22:14.1# GOAL MET pt will improve L natural resource officer strength to 35 pounds or more in order to maximize I in light IADL tasks as well as cross stitching 01/10/24: 25# 02/22: 30# 03/01: 32# NOT MET pt will improve R natural resource officer strength to 30 pounds or more in order to maximize I in light IADL tasks as well as cross stitching 01/10/24: 22# 02/22: 35# GOAL MET Goal:: Pt will improve L hand coordination with improvement in 9 hole test scoring 45 sec or less in order to increase I in IADL as well as cross stitching task 24: 29 sec GOAL MET pt will demonstrate the ability to manipulation and manage 5/5 buttons of various size in order to maximize I in ADL tasks able to do 5/5 buttons with button hook as needed GOAL MET Goal:: pt will completing hair washing task set up assistance in order to return to PLOF [place] GOAL MET Plan Plan: AROM/AAROM/PROM strengthening coordination D/C Information Discharge Comments: pt seen for dx of CVA. progress made in fine motor control manipulation skills as well as overall UB strength. pt to continue exercises and manipulation tasks at home for ongoing progress. d/c sentence: If there are questions or concerns regarding this patient's occupational therapy, please fell free to call me at [phone]. Thank you for the referral of this patient. Sincerely, Lauryn Tubbs
--- NOTE | 2024-03-01 17:07 | HP.OT.NRP ---
Patient Information Patient Information: FREDO MCGUIRE was seen in my office for initial evaluation on 11/22/23. The following Plan of Care was established for this patient: POC Established Initial Frequency: 2x /Week Initial Duration: 6 Weeks Plan: AROM/AAROM/PROM strengthening coordination Anticipated Interventions Anticipated Interventions: A/AAROM/PROM, Strengthening, Joint Protection/Energy Conservation, Fine Motor Coord/Antelmo, Neuro Reeducation, ADL Training, Education re assistive Equipment, Education re Diagnosis, Caregiver Training and Home Program Last Seen Last Seen: This patient was last seen in our office 03/01/24. Pertinent comments regarding their Occupational therapy will appear below: this 78 year old female seen in OT for dx of CVA. pt seen for improved UB strength [facility] ed in adaptive equipment. pt has progressed in all goals and to be discharged at this time pt in agreeance. At this point I will be discontinuing this patient from occupational therapy. I would be happy to see this patient again in the future if found appropriate by the physician. Thank you! Lauryn Tubbs
--- NOTE | 2024-03-09 16:23 | HP.PTDCSUM_ITS ---
Discharge Summary D/C summary: It has been my pleasure to treat FREDO MCGUIRE referred by Dr. Monika Venegas MD, with the diagnosis of Stroke for a total of 74 visit(s). Discharge Date: 03/09/24 Please see the following information for a summary of their discharge status. Subjective Subjective: States doing exercises daily when not in PT. Uses wh walker but sometimes wiill walk with dtr with cane. Taking things out of microwave and putting on walker and pushing to table. L leg still painful and tight especially if going to rain.Dtr agreeable. Picking tray up with two hands spometimes adn one hand. Pain L quad: Pain Intensity (Out of 10): Unrated Overall Improvement % Improvement: 25 Objective Objective/Function: 6 minutes for 3/4 lap today with cane and 5 LOB typically when she stops her feet and her body continues FW(panics) Mod A. Walks in with wh walker and does so well without a problem. TUG is still 32+ seconds adn 50% + of that time is turning once she gets back to chair lacking confidence to sit and has been that way for some time without lasting improvement. 30 sec STS is status quo and good for her age but does not on her own fully shift weight forward and prefers holding on the whole time. Can staand without UE. LEFS is not improving overall She did picker and packer object with two hands, place on walker roll it to a goal and take it off and place it with 2hands but slow and lacks confidence with balance. Goals Goal 1:: 30 seconds on TUG to show improved mobility. Goal Progress: Goal Met Goal 2:: Pt compliant 5x/week with full HEP to help limit effects of sedentarism Goal Progress: Goal Met subjectively Goal 3:: 10 on 30 sec STS to show improved strength and confidence. Goal Progress: Goal Met Goal 4:: Maintain 23 seconds TUG, 14 on 30 sec sit to stand and ability to walk with one cane one lap without LOB with 1x/week PT Goal Progress: Not Progressing Goal 5:: walk one lap at in under 10 minutes with cane and CGA Goal Progress: Goal Met Goal 6:: place object on walker from a shelf with twohands and good weight shift and push it across floor 8/8 x placing it back on shelf with two hands without LOB. Goal Progress: slow but met. Plan Plan: Pt seems to lack confidence and have fear that causes anxiety which panics her in walking and LOB or causes huge increases in time on TUG or slows way down weight shifts. Repetition and HEP are not helping this. PT will be D?C and will see eye doctor and surgeon for f/u and expectations as she seems to have reached maximum medical improvement after a year of therapy. D/C Information d/c sentence: If there are questions or concerns regarding this patient's physical therapy, pl faustino feel free to call me at [phone]. Thank you for the referral of this patient. Sincerely, Corey Zhao, DPT, OCS, CSCS Balance/Gait/Functional tests Balance/Special Test Scores Lower Extremity Functional Score: 29 TUG Test Time Seconds: 31 Tug Test: >30sec.=impaired mobility 30 Second Chair Rise Test Seconds: 15 Improvement % Improvement: 25
== END 2024-03-09 19:00 | disposition home or self-care (01) ==
LOC: PT 15:30
PROVIDERS: PCP Family Medicine; Referring Provider Family Medicine; Visit Provider Family Medicine
DX: Z86.73 Personal history of transient ischemic attack (TIA), and cerebral infarction without residual deficits (principal); M79.605 Pain in left leg
CPT/HCPCS: 97110; 97112; 97116; 97164; 97166; 97530

== ENCOUNTER → 2024-04-17 | Outpatient (CLI) | payer MEDICARE, OTHER, SELFPAY ==
[2024-04-17 17:56] LABS: Protein, Urine (Random) 20.1 mg/dL (<11.9); Protein:Creat Ratio 301 mg/g CRE (0-200)
[2024-04-17 18:09] LABS: AST(SGOT) 24 U/L (15-37); Alanine Aminotransfer ALT/SGPT 46 U/L (13-56); Anion Gap 7 (5-15); BUN 16 mg/dL (7-18); BUN/Creat Ratio 17.6 RATIO (10-20); Calcium,Total 9.1 mg/dL (8.5-10.1); Chloride 99 mmol/L (98-107); Cholesterol 160 mg/dL (200); Creatinine, Serum 0.91 mg/dL (0.55-1.02); EST Glomerular Filtration Rate 63 mL/min (>60); Est Glom Filt Rate - Afr Amer 77 mL/min (>60); Glucose 121 mg/dL (74-106); High Density Lipoprotein 73 mg/dL; Potassium 4.6 mmol/L (3.5-5.1); Sodium Level 130 mmol/L (136-145); Triglycerides 78 mg/dL; Very Low Density Lipoprotein 16 mg/dL (5-40)
== END | disposition home or self-care (01) ==
LOC: MTLAB 15:42
PROVIDERS: PCP Family Medicine; Referring Provider Family Medicine; Visit Provider Family Medicine
DX: E78.5 Hyperlipidemia, unspecified (principal); E87.1 Hypo-osmolality and hyponatremia; I10 Essential (primary) hypertension
CPT/HCPCS: 36415; 80048; 80061; 82570; 84156; 84450; 84460

== ENCOUNTER → 2024-06-19 | Outpatient (CLI) | payer MEDICARE, OTHER, SELFPAY ==
[2024-06-19 12:34] LABS: Urine Sodium 75 mmol/L (Not Establ.)
[2024-06-19 13:32] LABS: Anion Gap 6 (5-15); BUN 23 mg/dL (7-18); BUN/Creat Ratio 25.9 RATIO (10-20); Calcium,Total 9.3 mg/dL (8.5-10.1); Chloride 98 mmol/L (98-107); Creatinine, Serum 0.89 mg/dL (0.55-1.02); EST Glomerular Filtration Rate 65 mL/min (>60); Est Glom Filt Rate - Afr Amer 79 mL/min (>60); Glucose 121 mg/dL (74-106); Potassium 4.4 mmol/L (3.5-5.1); Sodium Level 129 mmol/L (136-145)
[2024-06-19 13:47] LABS: Osmolality, Urine 657 mOsm/KG
[2024-06-19 13:48] LABS: Osmolality, Serum 281 mOsm/KG (280-301)
[2024-06-19 15:28] LABS: Free T3 1.8 pg/mL (2.18-3.98)
== END | disposition home or self-care (01) ==
LOC: POLAB3 11:52
PROVIDERS: Physician Assistant Medical; PCP Family Medicine; Visit Provider Internal Medicine Nephrology
DX: E87.1 Hypo-osmolality and hyponatremia (principal); I48.0 Paroxysmal atrial fibrillation; Z79.899 Other long term (current) drug therapy
CPT/HCPCS: 36415; 80048; 83930; 83935; 84300; 84439; 84443; 84481

== ENCOUNTER → 2024-07-24 | Outpatient (CLI) | payer MEDICARE, OTHER, SELFPAY ==
[2024-07-24 15:10] LABS: Anion Gap 8 (5-15); BUN 21 mg/dL (7-18); BUN/Creat Ratio 26.3 RATIO (10-20); Calcium,Total 9.4 mg/dL (8.5-10.1); Chloride 97 mmol/L (98-107); EST Glomerular Filtration Rate 74 mL/min (>60); Est Glom Filt Rate - Afr Amer 89 mL/min (>60); Glucose 120 mg/dL (74-106); Potassium 4.5 mmol/L (3.5-5.1); Sodium Level 129 mmol/L (136-145)
== END | disposition home or self-care (01) ==
LOC: LAB 13:56
PROVIDERS: PCP Family Medicine; Referring Provider Internal Medicine Nephrology; Visit Provider Internal Medicine Nephrology
DX: E87.1 Hypo-osmolality and hyponatremia (principal)
CPT/HCPCS: 36415; 80048

== ENCOUNTER 2024-09-27 09:19 | Emergency (ER) | payer MEDICARE, OTHER, SELFPAY ==
[2024-09-27 09:20] VITALS: TEMP 36.6; BMI 24.8
[2024-09-27 09:23] VITALS: BP 178/43; PULSE 55; RESP 25; O2SAT 98
[2024-09-27 09:37] LABS: Absolute Neutrophil Count 5.1 X10^3/uL (2.0-7.7); Basophil# 0.02 X10^3/uL; Basophil% 0.3 % (0-1); Eosinophil# 0.07 X10^3/uL; Eosinophils% 1.1 % (0-5); Hematocrit 31.3 % (37-47); Lymphocyte % 10.8 % (19-41); Mean Corp Hgb Conc 35.1 g/dL (32-36); Mean Corpuscular Hgb 32.4 pg (27.0-32.0); Mean Corpuscular Volume 92.3 fL (81-99); Mean Platelet Vol. 9.9 fl (6.2-12.0); Monocyte# 0.54 X10^3/uL; Monocyte% 8.3 % (0-10); NRBC Flagged by Analyzer 0 % (0-5); Neutrophil # 5.12 X10^3/uL (2.7-7.7); Neutrophil % 78.7 % (47-70); Platelet Count 219 K/mm3 (150-450); RBC Distribution Width CV 13.8 % (11.6-14.6); RBC Distribution Width SD 46.5 fl (35.1-43.9); Red Blood Count 3.39 M/mm3 (4.2-5.4); White Blood Count 6.5 K/mm3 (4.4-11.0)
[2024-09-27] MEDS: 0.9% Normal Saline (500mL Bag) 500 ML 999 ML IV (09:40)
[2024-09-27 09:48] LABS: International Normalized Ratio 1.1; Prothrombin Time (Protime)PT. 14.8 SECONDS (11.7-14.9)
[2024-09-27 09:49] LABS: Partial Thromboplast Time 32.4 Seconds (24.1-36.2)
--- NOTE | 2024-09-27 09:50 | RAD_ITS ---
PROCEDURE: CHEST PA AND LATERAL 09/27/2024 REASON FOR EXAM: CHEST PAIN Chest pressure with radiation to the left upper extremity. TECHNIQUE: Frontal and lateral views of the chest. COMPARISON: None available. FINDINGS: Hardware: EKG electrodes are seen. Heart: The heart size is normal. Mediastinum: The mediastinal contour is unremarkable. Atherosclerotic calcification of the aortic arch. Lungs: The lungs are clear. Bones: The bones are unremarkable. RAD/Chest PA and Lateral IMPRESSION: No acute abnormality is seen. Reading Location: [place] [id number]
--- NOTE | 2024-09-27 09:54 | EX.ED.DYSGE1 ---
HPI History of Present Illness Chief Complaint: Chest Pain Narrative Narrative: Patient is a 78-year-old female with past medical history hypertension, hypercholesteremia, CVA, pulmonary hypertension, mitral stenosis, intracranial hemorrhage status post craniotomy who presents to the emergency department the chief complaint of chest pain. Patient states that around 730 this morning she noted that she had discomfort in the left side of her chest which ultimately she states that this felt different than her normal pain. States that ever since her surgery and from the ride from [facility] to [place] and December 2022 she noted that she has had some numbness and tingling periodically in her left arm but today this felt different therefore her daughter brought her here for further evaluation management. She states that she was sitting eating breakfast when this occurred. Patient states that she is anxious about her symptoms. She states that she is on Eliquis. [facility] Medical History Mitral valve stenosis, non-rheumatic Cerebrovascular disease Mitral stenosis Pulmonary hypertension Stroke/cerebrovascular accident Scalp lesion Hemorrhoids High cholesterol HTN (hypertension) Home Medications ?Medication ?Instructions ?Recorded ?Last Taken ?Type multivitamin 1 tablet PO DAILY supplement 08/12/20 12/24/22 10:00 History cholecalciferol (vitamin D3) 125 125 mcg PO DAILY supplement 08/14/20 12/24/22 08:00 History mcg (5,000 unit) capsule cyanocobalamin (vitamin B-12) 500 1,000 mcg PO DAILY supplement 08/14/20 12/24/22 10:00 History mcg chewable tablet zinc sulfate 50 mg zinc (220 mg) 220 mg PO DAILY vitamin 12/06/22 12/24/22 10:00 History capsule (Orazinc) amiodarone 200 mg tablet 200 mg PO DAILY #90 TABLETS 12/12/23 09/27/24 Rx atorvastatin 10 mg tablet 10 mg PO QHS for cholesterol #90 12/12/23 09/26/24 Rx TABLETS carvedilol 12.5 mg tablet 12.5 mg PO BID #180 TABLETS 12/12/23 09/27/24 Rx doxazosin 2 mg tablet 2 mg PO QHS #90 TABLETS 12/12/23 09/26/24 Rx apixaban 2.5 mg tablet 2.5 mg PO BID called to [facility] 08/13/24 09/27/24 Rx [facility]180 tabs acetaminophen 650 mg 1,300 mg PO Q8H PRN pain 09/27/24 Unknown History tablet,extended release (8 Hour Pain Reliever) garlic extract 1 tab PO DAILY supplement 09/27/24 Unknown History spironolactone 25 mg tablet 25 mg PO DAILY 09/27/24 09/27/24 History Allergy/AdvReac Type Severity Reaction Status Date / Time No Known Allergies Allergy Verified 09/27/24 09:20 Family History Father CVA (cerebral vascular accident) Heart disease Mother Diabetes Surgical History H/O craniotomy Status post hemorrhoidectomy (~08/19/20) S/P carpal tunnel release S/P bilateral breast reduction S/P hysterectomy Social History current occupational status: retired Smoking Status: Never smoker alcohol intake: never ROS ROS ED ROS Narrative Constitutional: Denies fever, chills, headaches, lightness, dizziness Eyes: Denies change in vision double vision blurry vision Cardiovascular: Complains of chest discomfort as noted above denies palpitations Respiratory: Denies shortness of breath, coughing Abdomen: Denies abdominal pain nausea vomit diarrhea : Denies urinary symptoms Neurological: Complains of chronic numbness tingling in the left upper extremity as noted above denies any new numbness, weakness or tingling Musculoskeletal: Denies back pain Skin: Denies any rashes or lesions EXAM Physical Exam Narrative Exam Narrative: General: Patient was lying in bed rest comfortably did not appear to be in acute distress Head: Atraumatic, normocephalic Eyes: PERRL bilaterally, EOMI bilaterally, no conjunctival injection noted Neck: Soft, supple, trachea midline Cardiovascular: Patient bradycardic with a regular rhythm Respiratory: Clear to auscultation bilaterally Abdomen: Soft, nondistended, nontender to palpation Extremities: Radial pulses +2/4 in the bilateral extremities, +5/5 strength noted in the bilateral upper and lower extremities Neurological: Patient follow commands knew that she was at [facility] year is 2024 Skin: Warm, dry, intact Const Vital Signs: 04/24/25 09:20 09/27/24 09:23 09/27/24 09:31 Temperature 98 F Temperature Source Oral Pulse Rate 55 L Respiratory Rate 25 H Blood Pressure 178/43 H Blood Pressure Mean 88 Pulse Ox 98 Oxygen Delivery Method Room Air 09/27/24 10:24 09/27/24 11:00 09/27/24 12:00 Temperature Temperature Source Pulse Rate 51 L 50 L 49 L Respiratory Rate 18 14 15 Blood Pressure 176/53 H 191/66 H Blood Pressure Mean 94 107 Pulse Ox 99 96 98 Oxygen Delivery Method 09/27/24 13:05 Temperature Temperature Source Pulse Rate 51 L Respiratory Rate 16 Blood Pressure 180/64 H Blood Pressure Mean 102 Pulse Ox 98 Oxygen Delivery Method MDM MDM MDM Narrative Medical decision making narrative: Patient is a 78-year-old female who presented to the emergency department with chief complaint of chest discomfort. On the differential diagnose includes but not limited to ACS, pneumonia, pneumothorax, anxiety. Once workup is obtained reviewed she will be reevaluated. Patient CBC reviewed and was largely unremarkable no evidence of leukocytosis white blood count normal at 6.5, hemoglobin is 11, platelet count was noted to be normal at 219. Patient INR normal at 1.1, PT of 14.8. Patient's sodium was noted to be low at 128 indicating hyponatremia however according to previous blood draw she is chronically hyponatremic this is her baseline, creatinine normal at 0.97. Patient's troponin was noted be 16 with a delta troponin of 14. Patient's EKG was reviewed which showed sinus bradycardia. Patient chest x-ray reviewed by myself and by radiology showed no acute cardiopulmonary processes. Did discuss his case with on-call hydropulper operator Dr. Calderon who states that she can follow-up in the outpatient setting. Did discuss results with the patient and family member bedside. She would like to go home at this point in time and is feeling better. Family bedside states that she has a doctor's appointment tomorrow and she was advised to follow-up at that appointment which is with her primary care physician. She is encouraged return with worsening symptoms or concerns. They are agreeable to this plan all question concerns answered she was discharged home in stable condition. Lab Data Labs: Laboratory Results - last 24 hr 09/27/24 09:24 WBC 6.5 RBC 3.39 L Hgb 11.0 L Hct 31.3 L MCV 92.3 MCH 32.4 H MCHC 35.1 RDW Std Deviation 46.5 H RDW Coeff of Marga 13.8 Plt Count 219 MPV 9.9 Immature Gran % (Auto) 0.800 Neut % (Auto) 78.7 H Lymph % (Auto) 10.8 L Aiken % (Auto) 8.3 Eos % (Auto) 1.1 Baso % (Auto) 0.3 Absolute Neuts (auto) 5.1 Absolute Lymphs (auto) 0.70 L Nucleated RBC % 0 PT 14.8 INR 1.1 APTT 32.4 Sodium 128 L Potassium 4.6 Chloride 95 L Carbon Dioxide 22.8 Anion Gap 10 BUN 23 H Creatinine 0.97 Estim Creat Clear Calc 33.23 L Est GFR (MDRD) Non-Af 59 L BUN/Creatinine Ratio 23.3 H Glucose 160 H Calcium 9.3 Troponin T High Sens 16 H Troponin T Hi Sens 2 Hr 14 Radiography Diagnostic Testing: Clinical Impression(s) from Imaging Studies Chest X-Ray 09/27/24 09:50 IMPRESSION: No acute abnormality is seen. Reading Location: [place] [id number] Discharge Plan Triage Chief Complaint: Chest Pain ED Provider: Hayden Sadler Dx/Rx/DC Orders Clinical Impression: Chest pain Prescriptions: No Action multivitamin Tablet 1 tablet PO DAILY cyanocobalamin (vitamin B-12) 500 MCG tablet,chewable 1,000 mcg PO DAILY cholecalciferol (vitamin D3) 125 MCG capsule 125 mcg PO DAILY zinc sulfate [Orazinc] 50 mg zinc (220 mg) capsule 220 mg PO DAILY acetaminophen [8 Hour Pain Reliever] 650 mg tablet extended release 1,300 mg PO Q8H PRN (Reason: pain) spironolactone 25 mg tablet 25 mg PO DAILY garlic extract 1 tab PO DAILY atorvastatin 10 mg tablet 10 mg PO QHS Qty: 90 3RF amiodarone 200 mg tablet 200 mg PO DAILY Qty: 90 3RF doxazosin 2 mg tablet 2 mg PO QHS Qty: 90 3RF carvedilol 12.5 mg tablet 12.5 mg PO BID Qty: 180 3RF apixaban 2.5 mg tablet 2.5 mg PO BID Qty: 180 4RF Primary Care Provider: Monika Venegas Referrals: Monika Venegas MD [Primary Care Provider] - Activity Restrictions/Additional Instructions: Follow-up with your primary care physician at your scheduled appointment tomorrow. Return with worsening symptoms or any other concerns. Print Language: Telugu Disposition Disposition: Home, Self Care
[2024-09-27 10:13] LABS: Anion Gap 10 (5-15); BUN 23 mg/dL (4-19); BUN/Creat Ratio 23.3 RATIO (10-20); Calcium,Total 9.3 mg/dL (7.6-11.0); Carbon Dioxide 22.8 mmol/L (21.0-32.0); Chloride 95 mmol/L (98-108); Creatinine, Serum 0.97 mg/dL (0.70-1.20); EST Glomerular Filtration Rate 59 (>60); Estimated Creatinine Clearance 33.23 ml/min (50-250); Glucose 160 mg/dL (70-99); Potassium 4.6 mmol/L (3.3-5.1); Sodium Level 128 mmol/L (133-145); Troponin T High Sensitivity 16 ng/L (<=14)
[2024-09-27 10:24] VITALS: BP 176/53; PULSE 51; RESP 18; O2SAT 99
[2024-09-27] MEDS: Aspirin 325 MG Tablet PO (10:36)
[2024-09-27 11:00] VITALS: PULSE 50; RESP 14; O2SAT 96
[2024-09-27 12:00] VITALS: BP 191/66; PULSE 49; RESP 15; O2SAT 98
[2024-09-27 12:45] LABS: Troponin T High Sens 2 HR 14 ng/L (<=14)
[2024-09-27 13:05] VITALS: BP 180/64; PULSE 51; RESP 16; O2SAT 98
== END 2024-09-27 13:40 | disposition home or self-care (01) ==
PROVIDERS: Emergency Provider Emergency Medicine; PCP Family Medicine; Visit Provider Emergency Medicine
DX: R07.9 Chest pain, unspecified (principal); I10 Essential (primary) hypertension; E78.00 Pure hypercholesterolemia, unspecified; Z90.710 Acquired absence of both cervix and uterus; Z86.73 Personal history of transient ischemic attack (TIA), and cerebral infarction without residual deficits; Z79.899 Other long term (current) drug therapy; Z79.01 Long term (current) use of anticoagulants
CPT/HCPCS: 71046; 80048; 84484; 85025; 85610; 85730; 93005; 96360; 99284

== ENCOUNTER 2024-11-07 10:51 | Emergency (ER) | payer MEDICARE, OTHER, SELFPAY ==
[2024-11-07 10:51] VITALS: BP 218/43; PULSE 47; RESP 20; O2SAT 100
[2024-11-07 10:52] VITALS: BP 161/37; PULSE 46; RESP 19; TEMP 37.1; O2SAT 98
--- NOTE | 2024-11-07 10:53 | EKG12_ITS ---
Test Reason : STROKE Blood Pressure : */* mmHG Vent. Rate : 49 BPM Atrial Rate : 49 BPM P-R Int : 176 ms QRS Dur : 76 ms QT Int : 484 ms P-R-T Axes : 53 31 57 degrees QTcB Int : 437 ms Sinus bradycardia Otherwise normal ECG Confirmed by STEW DEL VALLE, LORENA ([id number]), news assignment editor ARETHA GARCIA ([id number]) on 11/12/2024 7:10:59 AM Referred By: Confirmed By: LORENA MATHIAS MD
[2024-11-07 10:54] VITALS: BMI 26.0
--- NOTE | 2024-11-07 10:57 | EDS_ITS ---
HPI History of Present Illness Chief Complaint: Neuro S/Sx Detail of Chief Complaint: Daughter received a call that mother had slurred speech and had difficulty Informant: patient and family Onset/Context/Timing Onset: Today (1020) Context: Sudden Onset Timing: Continuous Quality and Location: Positive for Slurred Speech and Difficulty with Ambulation Onset: 1020 this is a Current Severity: Mild Maximum Severity: Mild Worsened by: Nothing Relieved by: Nothing Associated Symptoms Associated Symptoms: Negative for Headache, Nausea, Vomiting or Chest Pain Narrative Narrative: Patient is an 78-year-old woman. She was at [employer]. Other participants called daughter at 1021 because of trouble with speech and unable to walk. She has no complaints. She does admit she is having trouble walking. Patient is on amiodarone, she has history carotid bruit, mitral valve stenosis, high cholesterol, hypertension, prior stroke. Patient denies headache, visual, ocular auditory symptoms. Patient denies cardiovascular or respiratory symptoms. Patient has no GI symptoms. Prior similar symptoms: Yes Recent Illness/Hospitalization: No PFSH PFS Medical History Mitral valve stenosis, non-rheumatic Cerebrovascular disease Mitral stenosis Pulmonary hypertension Stroke/cerebrovascular accident Scalp lesion Hemorrhoids High cholesterol HTN (hypertension) Home Medications ?Medication ?Instructions ?Recorded ?Last Taken ?Type multivitamin 1 tablet PO DAILY supplement 08/12/20 12/24/22 10:00 History cholecalciferol (vitamin D3) 125 125 mcg PO DAILY supp lement 08/14/20 12/24/22 08:00 History mcg (5,000 unit) capsule cyanocobalamin (vitamin B-12) 500 1,000 mcg PO DAILY s upplement 08/14/20 0706/28 10:00 History mcg chewable tablet zinc sulfate 50 mg zinc (220 mg) 220 mg PO DAILY vitam in 12/06/22 12/24/22 10:00 History capsule (Orazinc) amiodarone 200 mg tablet 200 mg PO DAILY #90 TABLETS 12/12/23 09/27/24 Rx atorvastatin 10 mg tablet 10 mg PO QHS for cholesterol #90 12/12/23 09/26/24 Rx TABLETS carvedilol 12.5 mg tablet 12.5 mg PO BID #180 TABLETS 12/12/23 09/27/24 Rx doxazosin 2 mg tablet 2 mg PO QHS #90 TABLETS 07/0 01/2709/26/24 Rx apixaban 2.5 mg tablet 2.5 mg PO BID called to Disc ount 08/13/24 09/27/24 Rx [facility] #180 tabs acetaminophen 650 mg 1,300 mg PO Q8H PRN pain Unknown History tablet,extended release (8 Hour Pain Reliever) garlic extract 1 tab PO DAILY supplement Unknown History spironolactone 25 mg tablet 25 mg PO DAILY 09/27/24 History Allergy/AdvReac Type Severity Reaction Status Date / Time No Known Allergies Allergy Verified 11/07/24 11:15 Family History Father CVA (cerebral vascular accident) Heart disease Mother Diabetes Surgical History H/O craniotomy Status post hemorrhoidectomy (~08/19/20) S/P carpal tunnel release S/P bilateral breast reduction S/P hysterectomy Social History current occupational status: retired Smoking Status: Never smoker alcohol intake: never ROS ROS ED Constitutional Constitutional ED: Denies chills, fever(s) or subjective Eyes Eyes: Denies blurry vision or change in vision ENT ENT ED: Denies ear pain or rhinorrhea Cardiovascular Cardiovascular: Denies chest pain or palpitations Respiratory/Chest Respiratory/Chest: Denies cough, dyspnea or dyspnea on exertion Gastrointestinal Gastrointestinal: Denies abdominal pain, nausea or vomiting Genitourinary Genitourinary ED: Denies dysuria, hematuria or urinary frequency Musculoskeletal Musculoskeletal: Denies arthralgias, back pain or neck pain Neurologic Neurologic: Reports other Details: Difficulty ambulating and slurred speech ; Denies headache(s), paresthesias or weakness Psychiatric Psychiatric: Denies anxiety or depression Hematologic/Lymphatic Hematologic/Lymphatic: Denies easy bleeding or easy bruising EXAM Physical Exam Const Vital Signs: 11/07/24 10:51 11/07/24 10:52 11/07/24 10:53 Temperature 98.7 F Temperature Source Temporal Pulse Rate 47 L 46 L Respiratory Rate 20 H 19 H Blood Pressure 218/43 H 161/37 H Blood Pressure Mean 101 78 Pulse Ox 100 98 Oxygen Delivery Method Room Air Room Air 11/07/24 11:30 11/07/24 12:00 Temperature Temperature Source Pulse Rate 51 L 58 L Respiratory Rate 14 20 H Blood Pressure 217/62 H 194/59 H Blood Pressure Mean 113 104 Pulse Ox 99 100 Oxygen Delivery Method Room Air Positive well nourished and well developed Constitutional Narrative: HEENT exam is remarkable for prior surgery due to epidural. General Appearance ED: well developed and NAD HEENT Reports moist mucous membranes atraumatic Eyes PERRL and EOMs intact bilaterally General Eye ED: Negative for pale conjunctiva or scleral icterus Neck no lymphadenopathy, supple and no JVD Chest Wall inspection of chest normal and palpation of chest normal Resp normal respiratory effort and clear to auscultation bilaterally Cardio Rate: regular rate Rhythm: regular rhythm GI normal to inspection, nondistended, normoactive bowel sounds, soft to palpation, non-tender, non-distended and no masses Back/Spine no CVA tenderness Extremity normal to inspection Neuro oriented x3, CN's II-XII intact bilaterally and no sensory deficits noted Psych mental status grossly normal Skin no wounds General Skin Exam: Negative for jaundice Lesions: no lesions Rashes: no rashes MDM MDM MDM Narrative Medical decision making narrative: Patient presents with acute onset of trouble speaking and walking. Daughter states he walked her here apparently hit her head on the faucet the other day. She has a prior history of epidural hematoma. She is presently on apixaban and history of A-fib. History & Record Review Discussion w/independent historian: EMS personnel and Patient Additional record(s) reviewed:: Prior inpatient record Lab Data Labs: Laboratory Results - last 24 hr 11/07/24 11:09 WBC 6.7 RBC 3.09 L Hgb 10.2 L Hct 28.5 L MCV 92.2 MCH 33.0 H MCHC 35.8 RDW Std Deviation 45.2 H RDW Coeff of Marga 13.3 Plt Count 194 MPV 9.8 Immature Gran % (Auto) 0.900 Neut % (Auto) 79.2 H Lymph % (Auto) 9.3 L Loving % (Auto) 9.9 Eos % (Auto) 0.4 Baso % (Auto) 0.3 Absolute Neuts (auto) 5.3 Absolute Lymphs (auto) 0.62 L Nucleated RBC % 0 PT 17.1 H INR 1.4 APTT 33.0 Sodium 131 L Potassium 4.5 Chloride 98 Carbon Dioxide 23.7 Anion Gap 9 BUN 23 H Creatinine 1.04 Estim Creat Clear Calc 30.99 L Est GFR (MDRD) Non-Af 54 L BUN/Creatinine Ratio 22.3 H Glucose 101 H Calcium 9.1 Troponin T High Sens 21 H D POC Glucose 99 Radiography Diagnostic Testing: Clinical Impression(s) from Imaging Studies Brain CT 11/07/24 11:00 IMPRESSION: 1. Moderate-sized mixed density left subdural fluid collection, concerning for recurrent bleed. No midline shift is noted. 2. Hypodensities in nearby areas left frontal white matter, concerning for possible areas infarction, of uncertain age. 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 EKG Initial EKG: Attestation: I personally reviewed and interpreted this EKG as follows: Interpretation: Sinus Bradycardia (Rate is 49. Parables 176 ms. QS duration 76 ms. QT duration 484 ms. [place] is normal. Other than the bradycardia there is no abnormality.) Management Discussion w/another healthcare provider: Other (Nurse at [facility] transfer line, Dr. Bailey who accepted as well as a trauma patient. Dr. Treviño the ED accepting physician) Treatment and Re-Evaluation Narrative: Spoke with transfer nurse at [facility]. Patient was accepted ED to ED transfer by Dr. Treviño. Patient will receive human prothrombin to reverse the apixaban she is on for her atrial fibrillation. Critical Care Time Critical Care Time: Yes Critical care time (excluding procedures): 30-74 minutes (31), Including time spent: (History, physical, documentation, review of prior records and prior images as well as independent rotation of the CAT scan that reveals no hemorrhage.), Discussing w/Patient &/or Family/Charter Coach Driver, Discussing w/Consultants ([facility]), Arranging Admission or Transfer and Performing Direct Patient Care at Bedside Discharge Plan Triage Chief Complaint: Neuro S/Sx ED Provider: Dallas Bowen Dx/Rx/DC Orders Clinical Impression: Traumatic intracranial subdural hematoma, HTN (hypertension), Paroxysmal atrial fibrillation, Carotid artery bruit, [facility] current use of amiodarone, Difficulty in walking, Anticoagulant long-term use, Bradycardia, sinus Prescriptions: No Action multivitamin Tablet 1 tablet PO DAILY cyanocobalamin (vitamin B-12) 500 MCG tablet,chewable 1,000 mcg PO DAILY cholecalciferol (vitamin D3) 125 MCG capsule 125 mcg PO DAILY zinc sulfate [Orazinc] 50 mg zinc (220 mg) capsule 220 mg PO DAILY acetaminophen [8 Hour Pain Reliever] 650 mg tablet extended release 1,300 mg PO Q8H PRN (Reason: pain) spironolactone 25 mg tablet 25 mg PO DAILY garlic extract 1 tab PO DAILY atorvastatin 10 mg tablet 10 mg PO QHS Qty: 90 3RF amiodarone 200 mg tablet 200 mg PO DAILY Qty: 90 3RF doxazosin 2 mg tablet 2 mg PO QHS Qty: 90 3RF carvedilol 12.5 mg tablet 12.5 mg PO BID Qty: 180 3RF apixaban 2.5 mg tablet 2.5 mg PO BID Qty: 180 4RF Primary Care Provider: Monika Venegas Referrals: Monika Venegas MD [Primary Care Provider] - Print Language: Burkinan Disposition Disposition: Acute Care Hospital Discharge Location: [facility] Discharge Date/Time: 11/07/24 12:10 NIHSS NIHSS 1a. Level of Consciousness: 0 - Alert; keenly responsive 1b. LOC Questions: 0 - Answers BOTH questions correctly 1c. LOC Commands: 0 - Performs BOTH tasks correctly 3. Visual: 0 - No visual loss 4. Facial Palsy: 0 - Normal symmetrical movements 5a. Left Arm: 0 - No drift; arm holds 90 (or 45) degrees for full 10 seconds 5b. Right Arm: 0 - No drift; arm holds 90 (or 45) degrees for full 10 seconds 6a. Left Le - No drift; leg holds 30-degree position for full 5 seconds 6b. Right Le - No drift; leg holds 30-degree position for full 5 seconds 7. Limb Ataxia: 0 - Absent 8. Sensory: 0 - Normal; no sensory loss 9. Best Language: 0 - No aphasia; normal 10. Dysarthria: 1 = [id number] dysarthria; 11. Extinction and Inattention: 0 - No abnormality Total: 1 Stroke Questions Stroke Team Activated: Yes Reviewed Inclusion/Exclusion criteria: Yes Was Patient considered for Endovascular Intervention?: No IV Thrombolytic Administered: No No contraindications from thrombolytic administration: No
[2024-11-07 10:59] VITALS: BMI 24.0
--- NOTE | 2024-11-07 11:00 | CT_ITS ---
PROCEDURE: STROKE BRAIN/HEAD WITHOUT CONT 11/07/2024 REASON FOR EXAM: NEURO DEFICIT, ACUTE, STROKE SUSPECTED TECHNIQUE: Head CT without intravenous contrast. Coronal and Sagittal reconstruction series were provided. One or more dose reduction techniques were used (e.g., Automated exposure control, adjustment of the mA and/or kV according to patient size, use of iterative reconstruction technique. RADIATION DOSE SUMMARY: CTDlvol: 44.99 mGy DLP: 762.36 mGycm COMPARISON: Head CT of 12/24/2022. FINDINGS: A left craniotomy site is seen. Beneath the craniotomy site is noted mixed density moderate-sized subdural fluid collection. No significant midline shift is seen. Beneath the subdural fluid collection is seen areas of left frontal white matter hypodensities (axial images 19 through 30). These are concerning for the presence of possible white matter infarction, of uncertain age. Ventricles appear symmetric and within the normal range. No parenchymal hemorrhage is seen. No intraventricular blood is noted. Sinuses/Mastoids: Clear at visualized levels Bones: No acute osseous change is seen. CT/STROKE Brain/Head without Cont IMPRESSION: 1. Moderate-sized mixed density left subdural fluid collection, concerning for recurrent bleed. No midline shift is noted. 2. Hypodensities in nearby areas left frontal white matter, concerning for poss ible areas infarction, of uncertain age. Reading Location: [address]
[2024-11-07 11:07] VITALS: BP 218/43; PULSE 48; RESP 16; TEMP 36.6; O2SAT 99; BMI 26.1
--- NOTE | 2024-11-07 11:11 | ED.RN ---
patient was entered in the computer twice see other visit
--- NOTE | 2024-11-07 11:12 | ED.RN ---
pre registration was a duplicate.
[2024-11-07 11:21] LABS: Absolute Lymphocyte Count 0.62 X10^3/uL (0.83-4.51); Absolute Neutrophil Count 5.3 X10^3/uL (2.0-7.7); Basophil# 0.02 X10^3/uL; Basophil% 0.3 % (0-1); Eosinophil# 0.03 X10^3/uL; Eosinophils% 0.4 % (0-5); Hematocrit 28.5 % (37-47); Hemoglobin 10.2 g/dL (12.0-15.0); Lymphocyte # 0.62 X10^3/ul (0.83-4.51); Lymphocyte % 9.3 % (19-41); Mean Corp Hgb Conc 35.8 g/dL (32-36); Mean Corpuscular Volume 92.2 fL (81-99); Mean Platelet Vol. 9.8 fl (6.2-12.0); Monocyte# 0.66 X10^3/uL; Monocyte% 9.9 % (0-10); NRBC Flagged by Analyzer 0 % (0-5); Neutrophil % 79.2 % (47-70); Platelet Count 194 K/mm3 (150-450); RBC Distribution Width CV 13.3 % (11.6-14.6); RBC Distribution Width SD 45.2 fl (35.1-43.9); Red Blood Count 3.09 M/mm3 (4.2-5.4); White Blood Count 6.7 K/mm3 (4.4-11.0)
[2024-11-07 11:30] VITALS: BP 217/62; PULSE 51; RESP 14; O2SAT 99
[2024-11-07 11:32] LABS: International Normalized Ratio 1.4; Prothrombin Time (Protime)PT. 17.1 SECONDS (11.7-14.9)
[2024-11-07 11:33] LABS: Bedside Glucose 99 mg/dL (74-106)
[2024-11-07] MEDS: HUM PROTHROMBIN CPLX LANS IV (11:38)
[2024-11-07] MEDS: VIAFLEX IV (11:38)
[2024-11-07 11:40] LABS: Anion Gap 9 (5-15); BUN 23 mg/dL (4-19); BUN/Creat Ratio 22.3 RATIO (10-20); Calcium,Total 9.1 mg/dL (7.6-11.0); Carbon Dioxide 23.7 mmol/L (21.0-32.0); Chloride 98 mmol/L (98-108); Creatinine, Serum 1.04 mg/dL (0.70-1.20); EST Glomerular Filtration Rate 54 (>60); Estimated Creatinine Clearance 30.99 ml/min (50-250); Glucose 101 mg/dL (70-99); Potassium 4.5 mmol/L (3.3-5.1); Sodium Level 131 mmol/L (133-145); Troponin T High Sensitivity 21 ng/L (<=14)
[2024-11-07 12:00] VITALS: BP 194/59; PULSE 58; RESP 20; O2SAT 100
--- NOTE | 2024-11-07 15:34 | CM.ED ---
Social Work SW responded to stroke alert in triage. Patients daughter has accompanied patient to ER. SW took patient to room to wait on patient to return from imaging. Nurse is with patients daughter at this time collecting information, SW left room at this time. Magda Clark, HOSTEL MANAGER, CREDIT INVESTIGATOR
--- OUTSIDE RECORDS SUMMARY | 2024-11-07 20:03 | XMS RPT_ITS | CCD ---
Author Organization [facility] CliniSynv Care Team Providers Care General Surgery Physician Assistant Name Role Phone Dr. Monika Venegas Primary Care Provider Dr. Monika Venegas Referring Provider Dr. Rock Downing Attending Provider Monika Venegas MD Primary Care Provider Hugo, Dr. Jo-Ann Carias Admit Provider Dr. Jo-Ann Arias Attending Provider Dr. Jo-Ann Arias Other Provider Hugo, Dr. Jo-Ann Carias Referring Provider Monika Venegas MD Primary Care Provider Dr. Monika Venegas Primary Care Provider Dr. Monika Venegas Referring Provider Dr. Rock Downing Attending Provider Dr. German Dacosta Attending Provider Dr. Jo-Ann Arias Referring Provider Dr. Laura Jacobo Admit Provider Dr. Laura Jacobo Other Provider Kourtney Thompson Other Provider Unavailable Dr. Dudley Calderon Attending Provider Dr. Dudley Calderon Other Provider Dr. Nic Harvey Other Provider Dr. Domenic Goodson Other Provider Unavailable Dr. German Dacosta Other Provider Dr. John Severino Other Provider Dr. Corey Easton Other Provider Dr. Antwon Tyler Other Provider Dr. Juan Jose Rubio Other Provider Dr. Amelia Díaz Other Provider Dr. Gemma Cordova Other Provider Dr. Darshan Esparza Other Provider Dr. Hugo Burns Other Provider Dr. Howard Rivera Other Provider Roof DISPATCH OFFICER, DISPATCH OFFICER-C Jagdish Basilio Other Provider Ramos DISPATCH OFFICER, DISPATCH OFFICER-C Kourtney Other Provider MAGALY Palomo Other Provider Dr. Alix Hudson Other Provider Dr. Alix Hudson Attending Provider MAAGLY Palomo Attending Provider Dr. Monika Venegas Primary Care Provider Dr. Monika Venegas Referring Provider [phone] MAGALY Palomo Attending Provider BUENO, ANDREW D Attending Unavailable BUENO, ANDREW D Referring Unavailable JOLLIFF, MONIKA S Primary Care Unavailable BUENO, ANDREW D Attending Unavailable SELF, SELF Referring Unavailable JOLLIFF, MONIKA S Primary Care Unavailable BUENO, ANDREW D Referring Unavailable JOLLIFF, MONIKA S Primary Care Unavailable BUENO, ANDREW D Attending Unavailable BUENO, ANDREW D Referring Unavailable BUENO, ANDREW D Attending Unavailable JOLLIFF, MONIKA S Primary Care Unavailable JOLLIFF, MONIKA S Referring Unavailable JOLLIFF, MONIKA S Primary Care Unavailable BUENO, ANDREW D Attending Unavailable JOLLIFF, MONIKA S Primary Care Unavailable SALTS, KRISTINE A Attending Unavailable SALTS, KRISTINE A Referring Unavailable JOLLIFF, MONIKA S Primary Care Unavailable ANDREW BUENO Attending Unavailable SALTS, KRISTINE A Referring Unavailable JOLLIFF, MONIKA S Primary Care Unavailable SALTS, KRISTINE A Attending Unavailable SALTS, KRISTINE A Referring Unavailable BUENOANDREW Attending Unavailable SELF, SELF Referring Unavailable JOLLIFF, MONIKA S Primary Care Unavailable Tresaiff Dr. Monika DEL VALLE Primary Care Provider Dr. Nati Hudson DO Attending Provider Dr. Nati Hudson DO Referring Provider Dr. Hayden Sadler DO Emergency Provider [phone] Jolliff, Monika S Referring Unavailable Jolliff, Monika S Primary Care Unavailable Lolly Palomo Attending Unavail able Jolliff, Monika S Referring Unavailable Jolliff, Monika S Attending Unavailable Jolliff, Monika S Primary Care Unavailable Jolliff, Monika S Attending Unavailable Jolliff, Monika S Primary Care Unavailable Jolliff, Monika S Attending Unavailable Jolliff, Monika S Referring Unavailable Jolliff, Monika S Primary Care Unavailable Jolliff, Monika S Attending Unavailable Jolliff, Monika S Referring Unavailable Jolliff, Monika S Primary Care Unavailable Jolliff, Monika S Primary Care Unavailable Hayden Sadler Attending Unavailable Jolliff, Monika S Primary Care Unavailable Nati Hudson Attending Unavailable Nati Hudson Referring Unavailable Jolliff, Monika S Primary Care Unavailable Nati Hudson Attending Unavailable Jolliff, Monika S Primary Care Unavailable Jolliff, Monika S Attending Unavailable Jolliff, Monika S Referring Unavailable Jolliff, Monika S Referring Unavailable Jolliff, Monika S Primary Care Unavailable Jolliff, Monika S Attending Unavailable Jolliff, Monika S Referring Unavailable Jolliff, Monika S Attending Unavailable Jolliff, Monika S Primary Care Unavailable Medications Current Medications Medication Drug Class(es) Dates Sig (Normalized) Sig (Original) 8 hr acetaminophen 650 mg extended release oral tablet (20 sources) Start: 09-27-2024 Acetaminophen (8 Hour Pain Reliever) 650 mg tablet extended release Active 1300 mg PO Q8H as needed for pain September 27, 2024 12:00am Start: 12-06-2022 take 1 tablet nasoga stric route every four hours as needed Acetaminophen 325 MG tablet 1 tablet by Per NG tube route every 4 hours as needed for Mild Pain. 30 tablet 12/06/2022 Active Start: 12-06-2022 End: 09-27-2024 take 2 tablets by mouth every four hours as needed for pain Acetaminophen (Tylenol) 325 mg tablet Discontinued 650 mg PO Q4H as needed for pain December 06, 2022 12:00am September 27, 2024 9:59am apixaban 2.5 mg oral tablet (20 sources) Factor Xa Inhibitor Start: 08-13-2024 take 1 tablet by mouth twice daily Apixaban 2.5 mg tablet Active 2.5 mg PO TWICE A DAY 180 August 13, 2024 12:00am Start: 12-29-2022 End: 08-13-2024 take 1 tablet by mouth twice daily Apixaban 5 mg tablet Discontinued 5 mg PO TWICE A DAY 180 July 24, 2024 4:26pm August 13, 2024 3:51pm cholecalciferol 0.125 mg oral capsule (17 sources) Vitamin D Start: 08-14-2020 End: 11-17-2022 take 1 capsule by mouth once daily Cholecalciferol (Vitamin D3) 125 MCG capsule Active 125 ug PO DAILY August 14, 2020 1:00am Garlic preparation (7 sources) Non-Standardized Food Allergenic Extract Start: 09-27-2024 garlic extract Active 1 {tbl} PO DAILY September 27, 2024 12:00am End: 11-17-2022 Garlic (GARLIQUE PO) Take by mouth daily every morning. 11/17/2022 Discontinued (Medication Reconciliation (suppress cancel msg)) Garlic (GARLIQUE PO) Take by mouth daily every morning. 0 Active Garlic (GARLIQUE PO) Take by mouth. 0 Active magnesium chloride 535 mg delayed release oral tablet (20 sources) Start: 01-01-2023 magnesium Chlo ride (Mag64) [address] tablet ER 01/01/2023 Active Start: 12-29-2022 Magnesium Chlo ride (Mag 64) 64 mg Tablet,Delayed Release (Dr/Ec) Active 128 MG PO TWICE A DAY 60 December 28, 2022 11:00pm Start: 12-29-2022 End: 09-27-2024 Magnesium Chloride (Mag 64) 64 mg Tablet,Delayed Release (Dr/Ec) Discontinued 128 mg PO TWICE A DAY 60 December 29, 2022 12:00am September 27, 2024 10:00am Multivitamin preparation (10 sources) Start: 08-12-2020 take 1 tablet by mouth once daily Multivitamin Active 1 TABLET PO DAILY August 12, 2020 12:00am Start: 08-12-2020 take 1 tablet by melo th once daily Multivitamin Active 1 TABLET PO DAILY August 12, 2020 1:00am Multivitamin tablet (1 source) Start: 08-12-2020 Multivitamin tablet Active 1 {tbl} PO DAILY August 12, 2020 1:00am spironolactone 25 mg oral tablet (2 sources) Aldosterone Antagonist Start: 09-27-2024 take 1 tablet by mouth once daily Spironolactone 25 mg tablet Active 25 mg PO DAILY September 27, 2024 12:00am Start: 03-20-2024 take 25 mg by mouth once daily Spironolactone 25 MG/5ML Suspension Take 25 mg by mouth daily. 03/20/2024 Active vitamin b12 0.5 mg chewable tablet (11 sources) Vitamin B12 Start: 08-14-2020 take 2 tablets by mouth once daily Cyanocobalamin (Vitamin B-12) 500 MCG tablet,chewable Active 1000 ug PO DAILY August 14, 2020 1:00am Start: 08-14-2020 take 1000 ug by mout h once daily Cyanocobalamin (Vitamin B-12) Active 1000 MCG PO DAILY August 14, 2020 12:00am Zinc (5 sources) Zinc 50 MG table t Take by mouth. 0 Active zinc sulfate 220 mg oral cap dhaval (4 sources) Start: 12-06-2022 Zinc Sulfate ( Orazinc) 50 mg zinc (220 mg) capsule Active 220 mg PO DAILY December 06, 2022 12:00am Completed/Discontinued Medications Medication Drug Class(es) Dates Sig (Normalized) Sig (Original) acetaminophen 325 mg / oxyCODONE hydrochloride 5 mg oral tablet (11 sources) Opioid Agonist Start: 08-19-2020 End: 08-24-2020 Oxycodone-Acetamino phen 1 EACH tablet Discontinued 1 - 2 {tbl} PO EVERY 6 HOURS NEEDED as needed for Pain Score 4-10/10 40 5 August 19, 2020 August 23, 2020 12:00am August 24, 2020 12:03am Start: 08-19-2020 End: 08-24-2020 take 1 tablet by mouth every six hours as needed Oxycodone-Acetaminophen Discontinued 1 - 2 TABLET PO EVERY 6 HOURS NEEDED 40 5 August 19, 2020 August 23, 2020 11:03pm amiodarone hydrochloride 200 mg oral tablet (20 sources) Antiarrhythmic Start: 12-24-2022 End: 12-12-2023 take 1 tablet by mouth once daily Amiodarone 200 mg tablet Discontinued 200 mg PO DAILY January 07, 2023 1:55pm January 13, 2023 1:50pm ascorbic acid 500 mg oral tablet (4 sources) Vitamin C Start: 12-06-2022 End: 01-13-2023 take 1 tablet by mouth once daily Ascorbic Acid (Vitamin C) (C-500) 500 mg tablet Discontinued 500 mg PO DAILY@1200 December 06, 2022 12:00am January 13, 2023 1:18pm Ascorbic Acid-Elderberry Fruit (10 sources) Start: 08-14-2020 End: 01-13-2023 Ascorbic Acid-Elderberry Fruit Discontinued 1 EACH PO DAILY August 14, 2020 12:00am January 13, 2023 12:18pm Start: 08-14-2020 End: 01-13-2023 Ascorbic Acid-Elderberry Fru it Discontinued 1 EACH PO DAILY August 14, 2020 1:00am January 13, 2023 1:18pm Start: 08-14-2020 Ascorbic Acid- Elderberry Fruit Active 1 EACH PO DAILY August 14, 2020 12:00am Start: 08-14-2020 Ascorbic Acid- Elderberry Fruit Active 1 EACH PO DAILY August 14, 2020 1:00am Ascorbic Acid-Elderberry Fruit 1 EACH tablet,chewable (1 source) Start: 08-14-2020 End: 01-13-2023 take 1 tablet by mouth once daily Ascorbic Acid-Elderberry Fruit 1 EACH tablet,chewable Discontinued 1 NMA PO DAILY August 14, 2020 1:00am January 13, 2023 1:18pm atenolol 50 mg oral tablet (17 sources) beta-Adrenergi c Joie Start: 07-05-2018 End: 12-24-2022 take 1 tablet by mouth once daily Atenolol 50 tablet Discontinued 50 mg PO DAILY July 05, 2018 1:00am December 24, 2022 11:28am End: 12-06-2022 take 1 tablet by mouth twice daily Atenolol 50 MG tablet Take 1 tablet by mouth 2 times daily. 12/06/2022 Discontinued (Stop Taking at Discharge) take 2 tablets by mo uth twice daily, then take 2 tablets by mouth in the morning, then take 2 tablets by mouth in the evening Atenolol 50 MG tablet Take 2 tablets by mouth 2 times daily. 2 in the morning and two in the evening 0 Active atorvastatin 10 mg oral tablet (20 sources) HMG-CoA Reductase Inhibitor Start: 07-05-2018 End: 12-12-2023 take 1 tablet by mouth at bedtime Atorvastatin 10 MG tablet Discontinued 10 mg PO AT BEDTIME December 29, 2022 5:40pm January 13, 2023 1:50pm Boswellia-Glucosami ne-Vit D (OSTEO BI-FLEX ONE PER DAY PO) (6 sources) End: 10-13-2022 Boswellia-Glucosami ne-Vit D (OSTEO BI-FLEX ONE PER DAY PO) Take by mouth. 10/13/2022 Discontinued (Stop Taking at Discharge) Boswellia-Glucos amine-Vit D (OSTEO BI-FLEX ONE PER DAY PO) Take by mouth. 0 Active calcium carbonate 1250 mg / cholecalciferol 600 unt oral tablet (11 sources) Vitamin D Start: 08-14-2020 End: 09-27-2024 Calcium Carbonate-Vitamin D3 1 EACH tablet Discontinued 2 NMA PO DAILY August 14, 2020 1:00am September 27, 2024 9:59am Start: 08-14-2020 Calcium Carbon ate-Vitamin D3 Active 2 EACH PO DAILY August 14, 2020 12:00am Calcium Citrate / Vitamin D (6 sources) End: 11-17-2022 Calcium Citrate-Vitamin D (C ALCIUM CITRATE+D3 PO) Take by mouth daily every morning. 11/17/2022 Discontinued (Medication Reconciliation (suppress cancel msg)) Calcium Citrate- Vitamin D (CALCIUM CITRATE+D3 PO) Take by mouth daily every morning. 0 Active Calcium Citrate- Vitamin D (CALCIUM CITRATE+D3 PO) Take by mouth. 0 Active carvedilol 12.5 mg oral tablet (20 sources) alpha-Adrenergic Joie, beta-Adrenergic Joie Start: 12-06-2022 carveDILOL 12.5 MG tablet 1 tablet by Per NG tube route every 12 hours. 60 tablet 12/06/2022 Active Start: 12-06-2022 End: 12-12-2023 take 1 tablet by mouth twice daily at mealtime Carvedilol (Coreg) 12.5 mg tablet Discontinued 12.5 mg PO TWICE DAILY WITH MEALS 60 December 29, 2022 5:40pm January 13, 2023 1:50pm must administer with a meal/food cephalexin 500 mg oral capsule (4 sources) Cephalosporin Antibacterial Start: 12-06-2022 End: 12-29-2022 take 1 capsule by mouth every twelve hours Cephalexin 500 mg capsule Discontinued 500 mg PO Q12H December 06, 2022 12:00am December 29, 2022 5:36pm docusate sodium 100 mg oral capsule (11 sources) Start: 08-19-2020 End: 08-28-2020 take 1 capsule by mouth twice daily Docusate Sodium 100 MG capsule Discontinued 100 mg PO TWICE A DAY August 19, 2020 12:00am August 28, 2020 9:41pm doxazosin 2 mg oral tablet (20 sources) alpha-Adrenergic Joie Start: 12-06-2022 End: 12-12-2023 take 1 tablet by mouth at bedtime Doxazosin (Cardura) 2 mg tablet Discontinued 2 mg PO AT BEDTIME January 07, 2023 1:55pm January 13, 2023 1:50pm hold if systolic BP less than 110 ferrous sulfate 325 mg oral tablet (4 sources) Start: 12-06-2022 End: 01-13-2023 take 1 tablet by mouth once daily Ferrous Sulfate (Loly-Time) 325 mg (65 mg iron) tablet Discontinued 325 mg PO DAILY@1200 December 06, 2022 12:00am January 13, 2023 1:18pm Gadopiclenol SOLN 1-25 mL (4 sources) Start: 07-11-2024 End: 07-11-2024 1-25 mL, Intravenous, ONCE, 1 dose, On Tue07/11/24 at 0945 Start: 03-14-2024 End: 03-14-2024 1-25 mL, Intravenous, ONCE, 1 dose, On Tue03/14/24 at 1400 Start: 11-29-2023 End: 11-29-2023 1-25 mL, Intravenous, ONCE, 1 dose, On Tu11/29/23 at 1345 Start: 08-18-2023 End: 08-18-2023 1-25 mL, Intravenous, ONCE, 1 dose, On Donita 08/18/23 at 1400 gadoterate Meglumine (DOTARE M) 5 MMOL/10ML injection 3-60 mL (2 sources) Start: 01-12-2023 End: 01-12-2023 gadoterate Meglumine (DOTARE M) 5 MMOL/10ML injection 3-60 mL Start: 10-09-2022 End: 10-09-2022 gadoterate Meglumine (DOTARE M) 5 MMOL/10ML injection 3-60 mL Gallium Ga 68 Dotatate (Netspot) 0.5-5.94 millicurie (2 sources) Start: 03-14-2024 End: 03-14-2024 0.5-5.94 millicurie, Intravenous, ONCE, 1 dose, On Tue03/14/24 at 0915 Start: 01-12-2023 End: 01-12-2023 Gallium Ga 68 Dotatate (Nets pot) 0.5-5.94 millicurie hydroCHLOROthiazide 25 mg oral tablet (20 sources) Thiazide Diuretic Start: 01-07-2023 End: 09-27-2024 take 1 tablet by mouth once daily Hydrochlorothiazide 25 mg tablet Discontinued 25 mg PO DAILY December 12, 2023 8:05am September 27, 2024 10:00am Start: 07-05-2018 End: 12-29-2022 take 1 tablet by mouth once daily Hydrochlorothiazide 25 MG tablet Discontinued 25 mg PO DAILY July 05, 2018 1:00am December 29, 2022 5:37pm linezolid 600 mg oral tablet (4 sources) Oxazolidinone Antibacterial Start: 12-06-2022 End: 12-29-2022 take 1 tablet by mouth every twelve hours Linezolid 600 mg tablet Discontinued 600 mg PO Q12H December 06, 2022 12:00am December 29, 2022 5:37pm lisinopril 2.5 mg oral tablet (20 sources) Angiotensin Converting Enzyme Inhibitor Start: 12-29-2022 End: 01-13-2023 take 1 tablet by mouth once daily Lisinopril 2.5 mg Tablet Discontinued 2.5 mg PO DAILY December 29, 2022 12:00am January 13, 2023 1:18pm On Hold: BP is low Multiple Vitamin (multivitamin) capsule (6 sources) End: 11-17-2022 take 1 capsule by mouth once daily in the morning Multiple Vitamin (multivitamin) capsule Take 1 capsule by mouth daily every morning. 11/17/2022 Discontinued (Medication Reconciliation (suppress cancel msg)) take 1 capsule by mo ut once daily in the morning Multiple Vitamin (multivitamin) capsule Take 1 capsule by mouth daily every morning. 0 Active take 1 capsule by mouth once jayme ly Multiple Vitamin (multivitamin) capsule Take 1 capsule by mouth daily. 0 Active polyethylene glycol 3350 34537 mg powder for oral solution (4 sources) Osmotic Laxative Start: 12-06-2022 End: 12-29-2022 Polyethylene Glycol 3350 (Miralax) 17 gram powder in packet Discontinued 17 g PO DAILY December 06, 2022 12:00am December 29, 2022 5:38pm potassium chloride 20 meq extended release oral tablet (1 source) Start: 01-17-2024 End: 09-27-2024 take 1 tablet by mouth once daily Potassium Chloride 20 mEq tablet extended release Discontinued 20 meq PO DAILY January 17, 2024 12:00am September 27, 2024 10:00am Selenium (3 sources) Start: 12-06-2022 End: 01-13-2023 take 200 ug by mouth once daily Selenium Discontinued 200 MCG PO DAILY December 05, 2022 11:00pm January 13, 2023 12:18pm Start: 12-06-2022 End: 01-13-2023 take 200 ug by mouth once daily Selenium Discontinued 200 MCG PO DAILY December 06, 2022 12:00am January 13, 2023 1:18pm Start: 12-06-2022 take 200 ug by mouth once daily Selenium Active 200 MCG PO DAILY December 06, 2022 12:00am Selenium 200 mcg capsule (1 source) Start: 12-06-2022 End: 01-13-2023 take 1 capsule by mouth once daily Selenium 200 mcg capsule Discontinued 200 ug PO DAILY December 06, 2022 12:00am January 13, 2023 1:18pm 20 ml sodium chloride 9 mg/ml injection (8 sources) Start: 03-14-2024 End: 03-14-2024 1-100 mL, Intravenous, ONCE NEEDED, 1 dose, Starting on Tue03/14/24 at 1356, Until Tue03/14/24 at 1457, Flush, MR Procedure Start: 11-29-2023 End: 11-29-2023 1-100 mL, Intravenous, ONCE NEEDED, 1 dose, Starting on Tue11/29/23 at 1337, Until Tue11/29/23 at 1429, Flush, MR Procedure Start: 08-18-2023 End: 08-18-2023 1-100 mL, Intravenous, ONCE NEEDED, 1 dose, Starting on Tue08/18/23 at 1352, Until Tue08/18/23 at 1353, Flush, MR Procedure Start: 12-06-2022 End: 12-29-2022 take 2 tablets by mouth twice daily Sodium Chloride 1,000 mg tablet,soluble Discontinued 2000 mg PO TWICE A DAY December 06, 2022 12:00am December 29, 2022 5:38pm Start: 12-06-2022 End: 12-29-2022 take 2000 mg by mouth twice daily Sodium Chloride Discontinued 2000 MG PO TWICE A DAY December 05, 2022 11:00pm December 29, 2022 4:38pm Start: 10-09-2022 End: 10-09-2022 Sodium chloride (PF) 0.9 % i njection 1-100 mL zinc gluconate 50 mg oral tablet (1 source) End: 10-13-2022 Zinc [facility] MG [facility] 10/13/2022 Discontinued (Stop Taking at Discharge) Problems Active Problems Problem Classification Problem Date Documented Da te Episodic/Chronic Acute cerebrovascular disease (10 sources) Ischemic stroke; Translations: [Cerebral infarction, unspecified] Onset: 03-12-2024 12-08-2022 Chronic Comment on above: suspect embolic - mu ltiple foci in different areas of the brain Acute posthemorrhagic anemia (6 sources) Acute posthemorrhagic anemia; Translations: [Acute posthemorrhagic anemia] 12-08-2022 Episodic Cancer of brain and nervous system (20 sources) Malignant neoplasm of cerebral meninges; Translations: [Malignant neoplasm of cerebral meninges] Onset: 01-06-2023 01-12-2023 Chronic Cardiac dysrhythmias (13 sources) Paroxysmal atrial fibrillation; Translations: [Paroxysmal atrial fibrillation] Onset: 01-17-2024 01-09-2023 Chronic Comment on above: New onset on 12/25/19 23 Disorders of lipid metabolism (7 sources) Hyperlipidemia; Translations: [Hyperlipidemia, unspecified] Onset: 05-15-2024 Chronic E Codes: Fall (11 sources) Fall; Translations: [Unspecified fall, initial encounter] 08-08-2021 Episodic Essential hypertension (8 sources) Essential hypertension; Translations: [Essential (primary) hypertension] Onset: 12-23-2023 Chronic Fluid and electrolyte disorders (20 sources) Hyponatremia; Translations: [Hypo-osmolality and hyponatremia] Onset: 11-17-2022 12-08-2022 Episodic Gastrointestinal hemorrhage (11 sources) Rectal hemorrhage; Translations: [Hemorrhage of anus and rectum] 08-28-2020 Episodic Heart valve disorders (10 sources) Mitral valve stenosis; 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] 12-08-2022 Chronic Hemorrhoids (11 sources) Hemorrhoids; Translations: [Unspecified hemorrhoids] 08-28-2020 Episodic Intestinal infection (2 sources) Clostridioides difficile infection; Translations: [Enterocolitis due to Clostridium difficile, not specified as recurrent] 12-07-2022 Episodic Malaise and fatigue (6 sources) Asthenia; Translations: [Other malaise] 12-08-2022 Episodic Malignant neoplasm without specification of site (20 sources) Malignant neuroendocrine tumor; Translations: [Other malignant neuroendocrine tumors] Onset: 01-06-2023 01-12-2023 Chronic Mycoses (6 sources) Candidiasis of mouth; Translations: [Candidal stomatitis] 12-08-2022 Episodic Nonspecific chest pain (2 sources) Chest pain; Translations: [Chest pain, unspecified] Onset: 10-01-2024 09-27-2024 Episodic Other aftercare (2 sources) Drug therapy finding; Translations: [Other buttermaker (current) drug therapy] 07-19-2023 Episodic Other and ill-defined cerebrovascular disease (4 sources) Cerebrovascular disease; Translations: [Cerebrovascular disease, unspecified] 12-08-2022 Chronic Other and ill-defined cerebrovascular disease (1 source) Cerebrovascular disease, unspecified; Translations: [Unspecified cerebrovascular disease] 12-23-2022 Chronic Other circulatory disease (2 sources) Carotid bruit; Translations: [Other specified symptoms and signs involving the circulatory and respiratory systems] 07-19-2023 Episodic Other circulatory disease (1 source) Other specified symptoms and signs involving the circulatory and respiratory systems; Translations: [Other symptoms involving cardiovascular system] 07-19-2023 Episodic Other ear and sense organ disorders (4 sources) Excessive cerumen in ear canal ; Translations: [Impacted cerumen, bilateral] 12-20-2022 Episodic Other ear and sense organ disorders (2 sources) Impacted cerumen, bilateral; Translations: [Impacted cerumen] 12-23-2022 Episodic Other skin disorders (9 sources) Lesion of scalp; Translations: [Disorder of the skin and subcutaneous tissue, unspecified] 09-28-2022 Episodic Comment on above: This is a 76-year-ol d female who presents for evaluation of multiple left scalp lesions which she stated have been present for a number of years, but have undergone progressive growth. She underwent a CT scan of her brain 09/23/2022 with the following read:There is a 5.2 cm x 3.4 cm x 2.9 cm enhancing mass in the scalp overlyingthe left frontoparietal bone with the underlying bone destruction. There isevidence of a invasion of the mass lesion into the extra-axial spaceoverlying the left frontoparietal lobes. A neoplastic process should beruled out.Given this read, patient was notified via telephone of these results in an effort to give her as much time as possible. Patient's PCP, Dr. Venegas was also updated and has since made a referral to neurosurgery with [facility]. Today I did share CT images with Mrs. Mcguire and her daughter and tried to answer any questions as appropriate, but primarily deferred questions related to diagnosis and treatment for patient's eventual consultation visit. Patient's daughter is very understanding and states that they will look to follow-up with the referral later today. For her part, patient is quite anxious, but I have tried to encourage both patients and participation with this work-up. I have suggested it is a favorable thing that she has not developed any significant neuro symptoms, but in the end emphasized that a diagnosis must be made before prognoses are shared with treatment plans were formulated. Other skin disorders (13 sources) Disorder of the skin and subcutaneous tissue, unspecified; Translations: [Unspecified disorder of skin and subcutaneous tissue] 09-15-2022 Episodic Other skin disorders (2 sources) Alopecia; Translations: [Nonscarring hair loss, unspecified] 08-06-2024 Episodic Other skin disorders (1 source) Skin finding; Translations: [Unspecified skin changes] 07-11-2024 Episodic Other skin disorders (2 sources) Unspecified skin changes; Translations: [Unspecified skin changes] Onset: 07-11-2024 Episodic Other skin disorders (2 sources) Nonscarring hair loss, unspecified; Translations: [Nonscarring hair loss, unspecified] Onset: 07-11-2024 Episodic Pulmonary heart disease (5 sources) Pulmonary hypertension; Translations: [Pulmonary hypertension, unspecified] 12-08-2022 Chronic Residual codes; unclassified (4 sources) History of craniotomy; Translations: [Other specified postprocedural states] 12-08-2022 Episodic Residual codes; unclassified (1 source) Other specified postprocedural states; Translations: [Other postprocedural status] 12-23-2022 Episodic Residual codes; unclassified (2 sources) Personal history of irradiation; Translations: [Personal history of irradiation] Onset: 07-11-2024 Episodic Sprains and strains (11 sources) Lumbosacral strain; Translations: [Strain of muscle, fascia and tendon of lower back, initial encounter] 07-06-2018 Episodic Superficial injury; contusion (11 sources) Contusion of shoulder region; Translations: [Contusion of left shoulder, initial encounter] 08-08-2021 Episodic Past or Other Problems Problem Classification Problem Date Documented Da te Episodic/Chronic Deficiency and other anemia (20 sources) Anemia; Translations: [Anemia, unspecified] Onset: 11-16-2022 11-17-2022 Episodic Mood disorders (20 sources) Mood disorders Onset: 09-30-2022 Resolved: 07-11-2024 09-30-2022 Other aftercare (2 sources) Other buttermaker (current) drug therapy; Translations: [Long-term (current) use of other medications] Onset: 01-17-2024 07-19-2023 Episodic Other bone disease and musculoskeletal deformities (20 sources) Mass of head; Translations: [Other specified disorders of bone, other site] Onset: 10-04-2022 Episodic Other nervous system disorders (20 sources) Postoperative pain ; Translations: [Other acute postprocedural pain] Onset: 10-13-2022 10-13-2022 Episodic Residual codes; unclassified (20 sources) Postoperative state; Translations: [Other specified postprocedural states] Onset: 11-16-2022 11-16-2022 Episodic Unclassified (10 sources) Onset: 09-30-2022 Resolved: 03-14-2024 09-30-2022 Unclassified (1 source) Skin finding 08-06-2024 Results Test Name Value Interpretation Reference Range Facility Absolute neutrophil countOrd ered By: Hayden Sadler on 09-27-2024 Neutrophils (Bld) [#/Vol] 5.1 10*3/uL 2.0-7.7 [facility] Anion gap in Serum or Plasma Ordered By: Hayden Sadler on 09-27-2024 Anion gap [Moles/Vol] 10 mmol/L 5-15 [facility] BUN/creatinine ratioOrdered By: Hayden Sadler on 09-27-2024 Urea nitrogen/Creatinine [Mass ratio] 23.3 mg/mg High 10-20 [facility] Basic Metabolic Profile (BMP )on 09-27-2024 BUN/CRE 23.3 RATIO High 10- [facility] Comment on above: Performed By: #### L 500.2500 #### [facility] [address] [place], [address] Calcium [Mass/Vol] 9.3 mg/dL Normal 7.6-11.0 [facility] Comment on above: Performed By: #### L 500.2500 #### [facility] [address] [place], [address] Chloride [Moles/Vol] 95 mmol/L Low 98-108 [facility] Comment on above: Performed By: #### L 500.2500 #### [facility] [address] [place], [address] CO2 [Moles/Vol] 22.8 mmol/L Normal 21.0-32.0 [facility] Comment on above: Performed By: #### L 500.2500 #### [facility] [address] [place], [address] Creatinine [Mass/Vol] 0.97 mg/dL Normal 0.70-1.20 [facility] Comment on above: Performed By: #### L 500.2500 #### [facility] [address] [place], [address] ECRCL 33.23 ml/min Low 50-250 [facility] Comment on above: Performed By: #### L 500.2500 #### [facility] [address] [place], [address] GAP 10 Normal 5-15 [facility] Comment on above: Performed By: #### L 500.2500 #### [facility] [address] [place], [address] GFR/1.73 sq M.predicted among non-blacks MDRD (S/P/Bld) [Vol rate/Area] 59 mL/min/{1.73_m2} Low >60 [facility] Comment on above: Result Comment: mL/m in/1.73m2 CKD-EPI Creatinine Equation (2020) Performed By: #### L 500.2500 #### [facility] [address] [place], [address] Glucose [Mass/Vol] 160 mg/dL High 70-99 [facility] Comment on above: Performed By: #### L 500.2500 #### [facility] [address] [place], [address] Potassium [Moles/Vol] 4.6 mmol/L Normal 3.3-5.1 [facility] Comment on above: Performed By: #### L 500.2500 #### [facility] [address] [place], [address] Sodium [Moles/Vol] 128 mmol/L Low 133-145 [facility] Comment on above: Performed By: #### L 500.2500 #### [facility] [address] [place], [address] Urea nitrogen [Mass/Vol] 23 mg/dL High 4-19 [facility] Comment on above: Performed By: #### L 500.2500 #### [facility] [address] [place], [address] Basophil percentageOrdered B y: Hayden Sadler on 09-27-2024 Basophils/100 WBC (Bld) 0.3 % 0-1 [facility] CBC W/Diff, Automatedon 09-05 Absolute Lymph 0.70 X10 3/uL Low 0.83-4.51 [facility] Comment on above: Performed By: #### L 500.2500 #### [facility] [address] [place], [address] Absolute Neut 5.1 X10 3/uL Normal 2.0-7.7 [facility] Comment on above: Performed By: #### L 500.2500 #### [facility] [address] [place], [address] Basophils/100 WBC (Bld) 0.3 % Normal 0-1 [facility] Comment on above: Performed By: #### L 500.2500 #### [facility] [address] [place], [address] Eosinophils/100 WBC (Bld) 1.1 % Normal 0-5 [facility] Comment on above: Performed By: #### L 500.2500 #### [facility] [address] [place], [address] Erythrocyte distribution width (RBC) [Ratio] 13.8 % Normal 11.6-14.6 [facility] Comment on above: Performed By: #### L 500.2500 #### [facility] [address] [place], [address] Hematocrit (Bld) [Volume fraction] 31.3 % Low 37-47 [facility] Comment on above: Performed By: #### L 500.2500 #### [facility] [address] [place], [address] Hemoglobin (Bld) [Mass/Vol] 11.0 g/dL Low 12.0-15.0 [facility] Comment on above: Performed By: #### L 500.2500 #### [facility] [address] [place], [address] IG% 0.800 Normal 0.0-0.9 [facility] Comment on above: Result Comment: IG% - Immature Granulocytes (promyelocytes, myelocytes and metamyelocytes) > 1% indicates that a LEFT SHIFT is Present. Performed By: #### L 500.2500 #### [facility] [address] [place], [address] Lymphocytes/100 WBC (Bld) 10.8 % Low 19-41 [facility] Comment on above: Performed By: #### L 500.2500 #### [facility] [address] [place], [address] MCH (RBC) [Entitic mass] 32.4 pg High 27.0-32.0 [facility] Comment on above: Performed By: #### L 500.2500 #### [facility] [address] [place], [address] MCHC (RBC) [Mass/Vol] 35.1 g/dL Normal 32-36 [facility] Comment on above: Performed By: #### L 500.2500 #### [facility] [address] [place], [address] MCV (RBC) [Entitic vol] 92.3 fL Normal 81-99 [facility] Comment on above: Performed By: #### L 500.2500 #### [facility] [address] [place], [address] Monocytes/100 WBC (Bld) 8.3 % Normal 0-10 [facility] Comment on above: Performed By: #### L 500.2500 #### [facility] [address] [place], [address] Neutrophils/100 WBC (Bld) 78.7 % High 47-70 [facility] Comment on above: Performed By: #### L 500.2500 #### [facility] [address] [place], [address] Nucleated RBC (Bld) [#/Vol] 0 10*3/uL Normal 0-5 [facility] Comment on above: Performed By: #### L 500.2500 #### [facility] [address] [place], [address] Platelet mean volume (Bld) [Entitic vol] 9.9 fL Normal 6.2-12.0 [facility] Comment on above: Performed By: #### L 500.2500 #### [facility] [address] [place], [address] Platelets (Bld) [#/Vol] 219 10*3/uL Normal 150-450 [facility] Comment on above: Performed By: #### L 500.2500 #### [facility] [address] [place], [address] RBC (Bld) [#/Vol] 3.39 10*6/uL Low 4.2-5.4 [facility] Comment on above: Performed By: #### L 500.2500 #### [facility] [address] [place], [address] RDW SD 46.5 fl High 35.1-43.9 [facility] Comment on above: Performed By: #### L 500.2500 #### [facility] [address] [place], [place], [address] WBC (Bld) [#/Vol] 6.5 10*3/uL Normal 4.4-11.0 [facility] Comment on above: Performed By: #### L 500.2500 #### [facility] [address] [place], [address] Carbon dioxide, total [Moles /volume] in Central venous bloodOrdered By: Hayden Sadler on 09-27-2024 CO2 [Moles/Vol] 22.8 mmol/L 21.0-32.0 [facility] Chest PA and Lateralon 09-27 Chest PA and Lateral [facility] Imaging Services [address] [place] [address] Chest PA and Lateral MR#: [id number] Acct: [id number] Name: SARAH MCGUIRE Rep #: [id number] : 1945 F 78 From: Eugenio gomez MD PCP: Dr. Monika Venegas MD Status: REG ER Study: Chest PA and Lateral Date of Exam: 09/27/24 Exam# [id number] Ordering Dr: Hayden Sadler DO PROCEDURE: CHEST PA AND LATERAL 09/27/2024 REASON FOR EXAM: CHEST PAIN Chest pressure with radiation to the left upper extremity. TECHNIQUE: Frontal and lateral views of the chest. COMPARISON: None available. FINDINGS: Hardware: EKG electrodes are seen. Heart: The heart size is normal. Mediastinum: The mediastinal contour is unremarkable. Atherosclerotic calcification of the aortic arch. Lungs: The lungs are clear. Bones: The bones are unremarkable. RAD/Chest PA and Lateral IMPRESSION: No acute abnormality is seen. Reading Location: [place] [address] CC: Dr. Monika Venegas MD; Dr. Hayden Sadler DO Supply Chain Manager: Signed Normal [facility] Chloride assayOrdered By: Delfin Sadler on 09-27-2024 Chloride [Moles/Vol] 95 mmol/L Low 98-108 [facility] Emergency Department Summary on 09-27-2024 Emergency Department Summary [facility] Medical Records Department [address] [place] [address] Emergency Department Summary 09/27/24 MR#: [id number] Acct: [id number] Name: SARAH MCGUIRE Rep #: [id number] : 1945 78 From: Hayden Sadler DO PCP: Dr. Monika Venegas MD Status:REG ER Location: ED HPI History of Present Illness Chief Complaint: Chest Pain Narrative Narrative: Patient is a 78-year-old female with past medical history hypertension, hypercholesteremia, CVA, pulmonary hypertension, mitral stenosis, intracranial hemorrhage status post craniotomy who presents to the emergency department the chief complaint of chest pain. Patient states that around 730 this morning she noted that she had discomfort in the left side of her chest which ultimately she states that this felt different than her normal pain. States that ever since her surgery and from the ride from [facility] to [place] and December 2022 she noted that she has had some numbness and tingling periodically in her left arm but today this felt different therefore her daughter brought her here for further evaluation management. She states that she was sitting eating breakfast when this occurred. Patient states that she is anxious about her symptoms. She states that she is on Eliquis. [facility] Medical History Mitral valve stenosis, non-rheumatic Cerebrovascular disease Mitral stenosis Pulmonary hypertension Stroke/cerebrovascular accident Scalp lesion Hemorrhoids High cholesterol HTN (hypertension) Home Medications ???Medication ???Instructions ???Recorded ???Last Taken ???Type multivitamin 1 tablet PO DAILY supplement 08/1212/24/22 10:00 History cholecalciferol (vitamin D3) 125 125 mcg PO DAILY supplement 12/24/22 08:00 History mcg (5,000 unit) capsule cyanocobalamin (vitamin B-12) 500 1,000 mcg PO DAILY supplement 04/2612/24/22 10:00 History mcg chewable tablet zinc sulfate 50 mg zinc (220 mg) 220 mg PO DAILY vitamin 07/03/23 0 12/24/22 10:00 History capsule (Orazinc) amiodarone 200 mg tablet 200 mg PO DAILY #90 TABLETS 09/27/24 Rx atorvastatin 10 mg tablet 10 mg PO QHS for cholesterol #90 0 12/12/23 09/26/24 Rx TABLETS carvedilol 12.5 mg tablet 12.5 mg PO BID #180 TABLETS 09/27/24 Rx doxazosin 2 mg tablet 2 mg PO QHS #90 TABLETS 12/12/23 0 09/26/24 Rx apixaban 2.5 mg tablet 2.5 mg PO BID called to [facility] 08/13/24 09/27/24 Rx [facility] tabs acetaminophen 650 mg 1,300 mg PO Q8H PRN pain 09/27/24 Unknown History tablet,extended release (8 Hour Pain Reliever) garlic extract 1 tab PO DAILY supplement 09/27/24 Unknown History spironolactone 25 mg tablet 25 mg PO DAILY 09/27/24 09/27/24 H istory Allergy/AdvReac Type Severity Reaction Status Date / Time No Known Allergies Allergy Verified 09/27/24 09:20 Family History Father CVA (cerebral vascular accident) Heart disease Mother Diabetes Surgical History H/O craniotomy Status post hemorrhoidectomy ( 08/19/20) S/P carpal tunnel release S/P bilateral breast reduction S/P hysterectomy Social History current occupational status: retired Smoking Status: Never smoker alcohol intake: never ROS ROS ED ROS Narrative Constitutional: Denies fever, chills, headaches, lightness, dizziness Eyes: Denies change in vision double vision blurry vision Cardiovascular: Complains of chest discomfort as noted above denies palpitations Respiratory: Denies shortness of breath, coughing Abdomen: Denies abdominal pain nausea vomit diarrhea : Denies urinary symptoms Neurological: Complains of chronic numbness tingling in the left upper extremity as noted above denies any new numbness, weakness or tingling Musculoskeletal: Denies back pain Skin: Denies any rashes or lesions EXAM Physical Exam Narrative Exam Narrative: General: Patient was lying in bed rest comfortably did not appear to be in acute distress Head: Atraumatic, normocephalic Eyes: PERRL bilaterally, EOMI bilaterally, no conjunctival injection noted Neck: Soft, supple, trachea midline Cardiovascular: Patient bradycardic with a regular rhythm Respiratory: Clear to auscultation bilaterally Abdomen: Soft, nondistended, nontender to palpation Extremities: Radial pulses +2/4 in the bilateral extremities, +5/5 strength noted in the bilateral upper and lower extremities Neurological: Patient follow commands knew that she was at [facility] year is 2024 Skin: Warm, dry, intact Const Vital Signs: 09/27/24 09:20 09/27/24 09:23 09/27/24 09:31 Temperature 98 F (more content not included)... Normal [facility] Eosinophil percentageOrdered By: Hayden Sadler on 09-27-2024 Eosinophils/100 WBC (Bld) 1.1 % 0-5 [facility] Erythrocyte distribution wid th (RBC) [Ratio]Ordered By: Hayden Sadler on 09-27-2024 Erythrocyte distribution width (RBC) [Entitic vol] 46.5 fL High 35.1-43.9 [facility] Erythrocyte distribution wid th ratioOrdered By: Hayden Sadler on 09-27-2024 Erythrocyte distribution width (RBC) [Ratio] 13.8 % 11.6-14.6 [facility] Estimation of creatinine guido aranceOrdered By: Hayden Sadler on 09-27-2024 Estimated Creatinine Clearance Calc 33.23 ml/min Low 50-250 [facility] GFR/1.73 sq M.predicted maicol g non-blacks MDRD (S/P/Bld) [Vol rate/Area]Ordered By: Hayden Sadler on 09-27-2024 Estimated GFR (MDRD) Non-Af Amer 59 Low >60 [facility] Comment on above: mL/min/1.73m2 CKD-EP I Creatinine Equation (2020) Hematocrit Auto (Bld) [Volum e fraction]Ordered By: Hayden Sadler on 09-27-2024 Hematocrit (Bld) [Volume fraction] 31.3 % Low 37-47 [facility] Hemoglobin measurementOrdere d By: Hayden Sadler on 09-27-2024 Hemoglobin (Bld) [Mass/Vol] 11.0 g/dL Low 12.0-15.0 [facility] Immature granulocytes/100 WB C Auto (Bld)Ordered By: Hayden Sadler on 09-27-2024 Immature granulocytes/100 WBC (Bld) 0.800 % 0.0-0.9 [facility] Comment on above: IG% - Immature Granu locytes (promyelocytes, myelocytes and metamyelocytes) > 1% indicates that a LEFT SHIFT is Present. International normalized rat io (INR) calculationOrdered By: Hayden Sadler on 09-27-2024 INR Coag (Bld) [Relative time] 1.1 {INR} [facility] L499.0042on 09-27-2024 Trop T High Sen 14 ng/L Normal <=14 [facility] Comment on above: Performed By: #### L 300.4310, L300.3900 #### [facility] [address] [place], [address] L499.0043on 09-27-2024 Trop T High Sen Normal <=14 [facility] Comment on above: Result Comment: CANC ELLATION ORDER Performed By: #### L 499.0043 #### [facility] [address] [place], [address] L501.4021on 09-27-2024 Trop T High Sen 16 ng/L High <=14 [facility] Comment on above: Performed By: #### L 500.2500 #### [facility] [address] [place], [address] Lymphocytes Auto (Unsp spec) [#/Vol]Ordered By: Hayden Sadler on 09-27-2024 Lymphocytes (Bld) [#/Vol] 0.70 10*3/uL Low 0.83-4.51 [facility] Lymphocytes/100 WBC Auto (Un sp spec)Ordered By: Hayden Sadler on 09-27-2024 Lymphocytes/100 WBC (Bld) 10.8 % Low 19-41 [facility] MCV (mean corpuscular volume ) determinationOrdered By: Hayden Sadler on 09-27-2024 MCV (RBC) [Entitic vol] 92.3 fL 81-99 [facility] Mean corpuscular hemoglobin (MCH) determinationOrdered By: Hayden Sadler on 09-27-2024 MCH (RBC) [Entitic mass] 32.4 pg High 27.0-32.0 [facility] Mean corpuscular hemoglobin concentration (MCHC) determinationOrdered By: Hayden Sadler on 09-27-2024 MCHC (RBC) [Mass/Vol] 35.1 g/dL 32-36 [facility] Mean platelet volume determi nationOrdered By: Hayden Sadler on 09-27-2024 Platelet mean volume (Bld) [Entitic vol] 9.9 fL 6.2-12.0 [facility] Monocyte percentageOrdered B y: Hayden Sadler on 09-27-2024 Monocytes/100 WBC (Bld) 8.3 % 0-10 [facility] Neutrophil percentageOrdered By: Hayden Sadler on 09-27-2024 Neutrophils/100 WBC (Bld) 78.7 % High 47-70 [facility] Nucleated red blood cell per centageOrdered By: Hayden Sadler on 09-27-2024 Nucleated RBC/100 WBC (Bld) [Ratio] 0 % 0-5 [facility] Partial Thromboplast Timeon 09-27-2024 aPTT Coag (Bld) [Time] 32.4 s Normal 24.1-36.2 [facility] Comment on above: Performed By: #### L 300.4310, L300.3900 #### [facility] [address] [place] [address], [address] Platelet countOrdered By: Delfin Sadler on 09-27-2024 Platelets (Bld) [#/Vol] 219 10*3/uL 150-450 [facility] Potassium (Unsp spec) [Mass/ Vol]Ordered By: Hayden Sadler on 09-27-2024 Potassium [Moles/Vol] 4.6 mmol/L 3.3-5.1 [facility] Prothrombin Time w/INRon INR Coag (PPP) [Relative time] 1.1 {INR} Normal [facility] Comment on above: Performed By: #### L 300.4310, L300.3900 #### [facility] [address] [place], [address] PT Coag (PPP) [Time] 14.8 s Normal 11.7-14.9 [facility] Comment on above: Performed By: #### L 300.4310, L300.3900 #### [facility] [address] [place], [address] Prothrombin timeOrdered By: Hayden Sadler on 09-27-2024 PT Coag (PPP) [Time] 14.8 s 11.7-14.9 [facility] RBC Auto (Bld) [#/Vol]Ordere d By: Hayden Sadler on 09-27-2024 RBC (Bld) [#/Vol] 3.39 10*6/uL Low 4.2-5.4 [facility] Serum creatinine measurement (mass/volume)Ordered By: Hayden Sadler on 09-27-2024 Creatinine [Mass/Vol] 0.97 mg/dL 0.70-1.20 [facility] Serum glucose measurement (m ass/volume)Ordered By: Hayden Sadler on 09-27-2024 Glucose [Mass/Vol] 160 mg/dL High 70-99 [facility] Serum or plasma calcium ena urement (mass/volume)Ordered By: Hayden Sadler on 09-27-2024 Calcium [Mass/Vol] 9.3 mg/dL 7.6-11.0 [facility] Serum or plasma urea nitroge n measurement (mass/volume)Ordered By: Hayden Sadler on 09-27-2024 Urea nitrogen [Mass/Vol] 23 mg/dL High 4-19 [facility] Sodium levelOrdered By: Naomi Sadler on 09-27-2024 Sodium [Moles/Vol] 128 mmol/L Low 133-145 [facility] Troponin T.cardiac High sens itivity method [Mass/Vol]Ordered By: Hayden Sadler on 09-27-2024 Troponin T High Sensitivity 16 ng/L High <14 [facility] Troponin T High Sensitivity 2 Hour 14 ng/L <14 [facility] White blood cell (WBC) count Ordered By: Hayden Sadler on 09-27-2024 WBC (Bld) [#/Vol] 6.5 10*3/uL 4.4-11.0 [facility] aPTT Coag (PPP) [Time]Ordere d By: Hayden Sadler on 09-27-2024 aPTT Coag (Bld) [Time] 32.4 s 24.1-36.2 [facility] Basic Metabolic Profile (BMP )on 07-24-2024 BUN/CRE 26.3 RATIO High 10-20 [facility] Comment on above: Performed By: #### L 500.2500 #### [facility] [address] [place], [address] CA,Total 9.4 mg/dL Normal 8.5-10.1 [facility] Comment on above: Performed By: #### L 500.2500 #### [facility] [address] [place], [address] Chloride [Moles/Vol] 97 mmol/L Low 98-107 [facility] Comment on above: Performed By: #### L 500.2500 #### [facility] [address] [place], [address] CO2 [Moles/Vol] 24.0 mmol/L Normal 21.0-32.0 [facility] Comment on above: Performed By: #### L 500.2500 #### [facility] [address] [place], [address] Creatinine [Mass/Vol] 0.80 mg/dL Normal 0.55-1.02 [facility] Comment on above: Result Comment: The validity of the calculated GFR GFRAA in patients over 70 years has not been determined. Clinical correlation is essential. Performed By: #### L 500.2500 #### [facility] [address] [place], [address] EST GFR - AA 89 mL/min Normal >60 [facility] Comment on above: Result Comment: Afri can [place] GFR Calc Performed By: #### L 500.2500 #### [facility] [address] [place], [address] GAP 8 Normal 5-15 [facility] Comment on above: Performed By: #### L 500.2500 #### [facility] [address] [place], [address] GFR/1.73 sq M.predicted among non-blacks MDRD (S/P/Bld) [Vol rate/Area] 74 mL/min/{1.73_m2} Normal >60 [facility] Comment on above: Result Comment: Non- GFR Calc Performed By: #### L 500.2500 #### [facility] [address] [place], [address] Glucose [Mass/Vol] 120 mg/dL High 74-106 [facility] Comment on above: Result Comment: Fast ing Glucose result from 100 to 125 mg/dL suggests IMPAIRED HOMEOSTASIS per A.D.A. criteria. Performed By: #### L 500.2500 #### [facility] [address] [place], [address] Potassium [Moles/Vol] 4.5 mmol/L Normal 3.5-5.1 [facility] Comment on above: Performed By: #### L 500.2500 #### [facility] [address] [place], [address] Sodium [Moles/Vol] 129 mmol/L Low 136-145 [facility] Comment on above: Performed By: #### L 500.2500 #### [facility] [address] [place], [address] Urea nitrogen [Mass/Vol] 21 mg/dL High 7-18 [facility] Comment on above: Performed By: #### L 500.2500 #### [facility] [address] [place], [address] Blood urea nitrogen (BUN)/cr eatinine ratioOrdered By: Nati Hudson on 07-24-2024 Urea nitrogen/Creatinine [Mass ratio] 26.3 mg/mg High 10-20 [facility] Carbon dioxide measurementOr dered By: Nati Hudson on 07-24-2024 CO2 [Moles/Vol] 24.0 mmol/L 21.0-32.0 [facility] Chloride measurementOrdered By: Nati Hudson on 07-24-2024 Chloride [Moles/Vol] 97 mmol/L Low 98-107 [facility] Estimated glomerular filtrat ion rate (GFR) AmericanOrdered By: Nati Hudson on 07-24-2024 Estimated GFR (MDRD) Amer 89 mL/min >60 [facility] Comment on above: GFR Calc Glomerular filtration rate ( GFR) estimationOrdered By: Nati Hudson on 07-24-2024 Estimated GFR (MDRD) Non-Af Amer 74 mL/min >60 [facility] Comment on above: Non- GFR Calc Glucose measurementOrdered B y: Nati Hudson on 07-24-2024 Glucose [Mass/Vol] 120 mg/dL High 74-106 [facility] Comment on above: Fasting Glucose resu lt from 100 to 125 mg/dL suggests IMPAIRED HOMEOSTASIS per A.D.A. criteria. Potassium measurementOrdered By: Nati Hudson on 07-24-2024 Potassium [Moles/Vol] 4.5 mmol/L 3.5-5.1 [facility] Serum anion gap measurementO rdered By: Nati Hudson on 07-24-2024 Anion gap [Moles/Vol] 8 mmol/L 5-15 [facility] Serum or plasma calcium ena urement (mass/volume)Ordered By: Nati Hudson on 07-24-2024 Calcium [Mass/Vol] 9.4 mg/dL 8.5-10.1 [facility] Serum or plasma creatinine m easurement (mass/volume)Ordered By: Nati Hudson on 07-24-2024 Creatinine [Mass/Vol] 0.80 mg/dL 0.55-1.02 [facility] Comment on above: The validity of the calculated GFR & GFRAA in patients over 70 years has not been determined. Clinical correlation is essential. 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 CONTRAST: Gadopiclenol SOLN 1-25 mL; Route of Administration: Intravenous; Dose: 10 mL. FINDINGS: Redemonstrated postsurgical changes related to craniotomy for meningioma resection. Unchanged areas of encephalomalacia and gliosis in the left frontal lobe underlying the surgical site. Expected postsurgical dural thickening without evidence of a suspicious nodular enhancing focus. No discrete focus of elevated relative blood volume is identified on perfusion imaging. No evidence of mass effect. Mild hemosiderin along the left cerebral convexity. Small stable heterogeneously T1-hyperintense collection at the left cranioplasty site. No evidence of acute infarct is identified. No additional abnormal enhancement. Scattered foci of T2 prolongation in the periventricular and deep white matter are nonspecific but compatible with chronic microvascular changes and/or treatment-related changes. Small remote infarct in the right cerebellar hemisphere, unchanged. Sellar and parasellar structures are unremarkable. Ventricles and sulci are mildly prominent, compatible with parenchymal volume loss. Minimal mucosal thickening in the paranasal sinuses. Bilateral cataract surgery. IMPRESSION: Stable posttreatment changes are again seen without evidence of nodular disease recurrence along the resection margins. There is no nodular correlates to areas of mild neuroendocrine radiotracer uptake on the March 14, 2024 PET/CT. Normal [facility] Basic Metabolic Profile (BMP )on 06-19-2024 BUN/CRE 25.9 RATIO High 10-20 [facility] Comment on above: Performed By: #### L 500.2500 #### [facility] [address] [place], [address] CA,Total 9.3 mg/dL Normal 8.5-10.1 [facility] Comment on above: Performed By: #### L 500.2500 #### [facility] [address] [place], [address] Chloride [Moles/Vol] 98 mmol/L Normal 98-107 [facility] Comment on above: Performed By: #### L 500.2500 #### [facility] [address] [place], [address] CO2 [Moles/Vol] 24.0 mmol/L Normal 21.0-32.0 [facility] Comment on above: Performed By: #### L 500.2500 #### [facility] [address] [place], [address] Creatinine [Mass/Vol] 0.89 mg/dL Normal 0.55-1.02 [facility] Comment on above: Result Comment: The validity of the calculated GFR GFRAA in patients over 70 years has not been determined. Clinical correlation is essential. Performed By: #### L 500.2500 #### [facility] [address] [place], [address] EST GFR - AA 79 mL/min Normal >60 [facility] Comment on above: Result Comment: Afri can Kenyan GFR Calc Performed By: #### L 500.2500 #### [facility] [address] [place], [address] GAP 6 Normal 5-15 [facility] Comment on above: Performed By: #### L 500.2500 #### [facility] [address] [place], [address] GFR/1.73 sq M.predicted among non-blacks MDRD (S/P/Bld) [Vol rate/Area] 65 mL/min/{1.73_m2} Normal >60 [facility] Comment on above: Result Comment: Non- GFR Calc Performed By: #### L 500.2500 #### [facility] [address] [place], [address] Glucose [Mass/Vol] 121 mg/dL High 74-106 [facility] Comment on above: Result Comment: Fast ing Glucose result from 100 to 125 mg/dL suggests IMPAIRED HOMEOSTASIS per A.D.A. criteria. Performed By: #### L 500.2500 #### [facility] [address] [place], [address] Potassium [Moles/Vol] 4.4 mmol/L Normal 3.5-5.1 [facility] Comment on above: Performed By: #### L [id number] #### [facility] [address] [place], [address] Sodium [Moles/Vol] 129 mmol/L Low 136-145 [facility] Comment on above: Performed By: #### L 500.2500 #### [facility] [address] [place], [address] Urea nitrogen [Mass/Vol] 23 mg/dL High 7-18 [facility] Comment on above: Performed By: #### L 500.2500 #### [facility] [address] [place], [address] Blood urea nitrogen (BUN)/cr eatinine ratioOrdered By: Nati Hudson on 06-19-2024 Urea nitrogen/Creatinine [Mass ratio] 25.9 mg/mg High 10-20 [facility] Carbon dioxide measurementOr dered By: Nati Hudson on 06-19-2024 CO2 [Moles/Vol] 24.0 mmol/L 21.0-32.0 [facility] Chloride measurementOrdered By: Nati Hudson on 06-19-2024 Chloride [Moles/Vol] 98 mmol/L 98-107 [facility] Direct serum free thyroxine (FT4) measurementOrdered By: Lolly Alejandra on 06-19-2024 Free T4 [Mass/Vol] 1.60 ng/dL High 0.76-1.46 [facility] Estimated glomerular filtrat ion rate (GFR) AmericanOrdered By: Nati Hudson on 06-19-2024 Estimated GFR (MDRD) Amer 79 mL/min >60 [facility] Comment on above: GFR Calc Free T3on 06-19-2024 Free T3 [Mass/Vol] 1.8 pg/mL Low 2.18-3.98 [facility] Comment on above: Performed By: #### L 506.0400, L501.9520, L501.87271 #### [facility] [address] [place] [address], [address] Free J4Iexuxvs By: Lolly Alejandra on 06-19-2024 Free Triiodothyronine (T3) pg/dL 1.8 pg/mL Low 2.18-3.98 [facility] Glomerular filtration rate ( GFR) estimationOrdered By: Nati Hudson on 06-19-2024 Estimated GFR (MDRD) Non-Af Amer 65 mL/min >60 [facility] Comment on above: Non- GFR Calc Glucose measurementOrdered B y: Nati Hudson on 06-19-2024 Glucose [Mass/Vol] 121 mg/dL High 74-106 [facility] Comment on above: Fasting Glucose resu lt from 100 to 125 mg/dL suggests IMPAIRED HOMEOSTASIS per A.D.A. criteria. Osmolality (U) [Osmolality]O rdered By: Nati Hudson on 06-19-2024 Urine Osmolality 657 mOsm/KG >50 [facility] Comment on above: Normal Urine Referen ce Ranges Random: 50 - 1200 mOsm/kg H20 depending on fluid intake Random: >850 mOsm/kg after 12 hour fluid restriction 24 hour: ~300 - 900 mOsm/kg H2O Osmolality, Serumon 06-19-19 25 OSMOLALITY,SER 281 mOsm/KG Normal 280-301 [facility] Comment on above: Performed By: #### L 500.2500 #### [facility] [address] [place], [place], [address] Osmolality, Urineon 06-19-19 25 OSMOLALITY,UR 657 mOsm/KG Normal [facility] Comment on above: Result Comment: Normal Urine Reference Ranges Random: 50 - 1200 mOsm/kg H20 depending on fluid intake Random: >850 mOsm/kg after 12 hour fluid restriction 24 hour: 300 - 900 mOsm/kg H2O Performed By: #### L 500.2500 #### [facility] [address] [facility] [place], [address] Osmolality, serumOrdered By: Nati Hudson on 06-19-2024 Serum Osmolality 281 mOsm/KG 280-301 [facility] Potassium measurementOrdered By: Nati Hudson on 06-19-2024 Potassium [Moles/Vol] 4.4 mmol/L 3.5-5.1 [facility] Serum anion gap measurementO rdered By: Nati Hudson on 06-19-2024 Anion gap [Moles/Vol] 6 mmol/L 5-15 [facility] Serum or plasma calcium ena urement (mass/volume)Ordered By: Nati Hudson on 06-19-2024 Calcium [Mass/Vol] 9.3 mg/dL 8.5-10.1 [facility] Serum or plasma creatinine m easurement (mass/volume)Ordered By: Nati Hudson on 06-19-2024 Creatinine [Mass/Vol] 0.89 mg/dL 0.55-1.02 [facility] Comment on above: The validity of the calculated GFR & GFRAA in patients over 70 years has not been determined. Clinical correlation is essential. Serum or plasma urea nitroge n measurement (mass/volume)Ordered By: Nati Hudson on 06-19-2024 Urea nitrogen [Mass/Vol] 23 mg/dL High 7-18 [facility] Sodium levelOrdered By: Luiz Hudson on 06-19-2024 Sodium [Moles/Vol] 129 mmol/L Low 136-145 [facility] Sodium urOrdered By: Ana Cristina Hudson on 06-19-2024 Sodium (U) [Moles/Vol] 75 mmol/L Not Establ. [facility] T4 Free Directon 06-19-2024 T4 FREE DIRECT 1.60 ng/dL High 0.76-1.46 [facility] Comment on above: Performed By: #### L 506.0400, L501.9520, L501.68275 #### [facility] [address] [place], [address] TSH QnOrdered By: Lolly Bernabe on 06-19-2024 Thyroid Stimulating Hormone (TSH) 1.730 uIU/mL 0.358-3.740 [facility] Thyroid Stim Hormone (TSH)on 06-19-2024 TSH 1.730 uIU/mL Normal 0.358-3.740 [facility] Comment on above: Performed By: #### L 506.0400, L501.9520, L501.23462 #### [facility] [address] [place], [address] Urine Sodiumon 06-19-2024 Sodium (U) [Moles/Vol] 75 mmol/L Normal Not Establ. [facility] Comment on above: Performed By: #### L 500.2500 #### [facility] [address] [place], [address] AST(SGOT)on 04-17-2024 AST [Catalytic activity/Vol] 24 U/L Normal 15-37 [facility] Comment on above: Order Comment: Order Date: 03/20/24Order Info: 0667-1 - BMPOrder Info: 62543-8 - LIPIDOrder Date: 11/18/23Order Info: 1920-8 - ASTOrder Info: 1742-6 - ALT Performed By: #### L 300.4310, L300.3900 #### [facility] [address] [place], [address] Alanine Aminotransferas (SGP T)on 04-17-2024 ALT [Catalytic activity/Vol] 46 U/L Normal 13-56 [facility] Comment on above: Order Comment: Order Date: 03/20/24Order Info: 666-06 - BMPOrder Info: - LIPIDOrder Date: 11/18/23Order Info: 1920-01 - ASTOrder Info: 1741-11 - ALT Performed By: #### L 300.4310, L300.3900 #### [facility] [address] [place], [place], [address] Basic Metabolic Profile (BMP )on 04-17-2024 BUN/CRE 17.6 RATIO Normal 10-20 [facility] Comment on above: Order Comment: Order Date: 03/20/24 Order Info: 666-06 - BMP Order Info: - LIPID Order Date: 11/18/23 Order Info: 1920-01 - AST Order Info: 1741-11 - ALT Performed By: #### L 500.2500 #### [facility] [address] [place], [place], [address] CA,Total 9.1 mg/dL Normal 8.5-10.1 [facility] Comment on above: Order Comment: Order Date: 03/20/24 Order Info: 666-06 - BMP Order Info: - LIPID Order Date: 11/18/23 Order Info: 1920-01 - AST Order Info: 1741-11 - ALT Performed By: #### L 500.2500 #### [facility] [address] [place], [address] Chloride [Moles/Vol] 99 mmol/L Normal 98-107 [facility] Comment on above: Order Comment: Order Date: 03/20/24 Order Info: 666-06 - BMP Order Info: - LIPID Order Date: 11/18/23 Order Info: 1920-01 - AST Order Info: 1741-11 - ALT Performed By: #### L 500.2500 #### [facility] [address] [place], [address] CO2 [Moles/Vol] 24.0 mmol/L Normal 21.0-32.0 [facility] Comment on above: Order Comment: Order Date: 03/20/24 Order Info: 666-06 - BMP Order Info: - LIPID Order Date: 11/18/23 Order Info: 1920-01 - AST Order Info: 1741-11 - ALT Performed By: #### L 500.2500 #### [facility] [address] [place], [place], [address] Creatinine [Mass/Vol] 0.91 mg/dL Normal 0.55-1.02 [facility] Comment on above: Order Comment: Order Date: 03/20/24 Order Info: 666-06 - BMP Order Info: - LIPID Order Date: 11/18/23 Order Info: 1920-01 - AST Order Info: 1741-11 - ALT Result Comment: The validity of the calculated GFR GFRAA in patients over 70 years has not been determined. Clinical correlation is essential. Performed By: #### L 500.2500 #### [facility] [address] [place], [address] EST GFR - AA 77 mL/min Normal >60 [facility] Comment on above: Order Comment: Order Date: 03/20/24 Order Info: 666-06 - BMP Order Info: - LIPID Order Date: 11/18/23 Order Info: 1920-01 - AST Order Info: 1741-11 - ALT Result Comment: Afri can Kenyan GFR Calc Performed By: #### L 500.2500 #### [facility] [address] [place], [address] GAP 7 Normal 5-15 [facility] Comment on above: Order Comment: Order Date: 03/20/24 Order Info: 666-06 - BMP Order Info: - LIPID Order Date: 11/18/23 Order Info: 1920-01 - AST Order Info: 1741-11 - ALT Performed By: #### L 500.2500 #### [facility] [address] [place], [address] GFR/1.73 sq M.predicted among non-blacks MDRD (S/P/Bld) [Vol rate/Area] 63 mL/min/{1.73_m2} Normal >60 [facility] Comment on above: Order Comment: Order Date: 03/20/24 Order Info: 666-06 - BMP Order Info: - LIPID Order Date: 11/18/23 Order Info: 1920-01 - AST Order Info: 1741-11 - ALT Result Comment: Non- GFR Calc Performed By: #### L 500.2500 #### [facility] [address] [place], [address] Glucose [Mass/Vol] 121 mg/dL High 74-106 [facility] Comment on above: Order Comment: Order Date: 03/20/24 Order Info: 666-06 - BMP Order Info: - LIPID Order Date: 11/18/23 Order Info: 1920-01 - AST Order Info: 1741-11 - ALT Result Comment: Fast ing Glucose result from 100 to 125 mg/dL suggests IMPAIRED HOMEOSTASIS per A.D.A. criteria. Performed By: #### L 500.2500 #### [facility] [address] [place], [address] Potassium [Moles/Vol] 4.6 mmol/L Normal 3.5-5.1 [facility] Comment on above: Order Comment: Order Date: 03/20/24 Order Info: 666-06 - BMP Order Info: - LIPID Order Date: 11/18/23 Order Info: 1920-01 - AST Order Info: 1741-11 - ALT Performed By: #### L 500.2500 #### [facility] [address] [place], [address] Sodium [Moles/Vol] 130 mmol/L Low 136-145 [facility] Comment on above: Order Comment: Order Date: 03/20/24 Order Info: 666-06 - BMP Order Info: - LIPID Order Date: 11/18/23 Order Info: 1920-01 - AST Order Info: 1741-11 - ALT Performed By: #### L 500.2500 #### [facility] [address] [place], [address] Urea nitrogen [Mass/Vol] 16 mg/dL Normal 7-18 [facility] Comment on above: Order Comment: Order Date: 03/20/24 Order Info: 666-06 - BMP Order Info: - LIPID Order Date: 11/18/23 Order Info: 1920-01 - AST Order Info: 1741-11 - ALT Performed By: #### L 500.2500 #### [facility] [address] [place], [place], [address] Lipid Profileon 04-17-2024 Cholesterol [Mass/Vol] 160 mg/dL Normal 200 [facility] Comment on above: Order Comment: Order Date: 03/20/24 Order Info: 666-06 - BMP Order Info: - LIPID Order Date: 11/18/23 Order Info: 1920-01 - AST Order Info: 1741-11 - ALT Result Comment: <200 mg/dL Desirable 200-240 mg/dL Borderline >240 mg/dL High Risk Performed By: #### L 501.4405, L500.4100, L501.4100 #### [facility] [address] [place], [address] Cholesterol in HDL [Mass/Vol] 73 mg/dL Normal [facility] Comment on above: Order Comment: Order Date: 03/20/24 Order Info: 666-06 - BMP Order Info: - LIPID Order Date: 11/18/23 Order Info: 1920-01 - AST Order Info: 1741-11 - ALT Result Comment: The drugs N-Acetylcysteine and Metamizole may falsely depress this assay. Reference Range HDL <40 mg/dL Low HDL Cholesterol HDL >or= 60 mg/dL High HDL Cholesterol Performed By: #### L 501.4405, L500.4100, L501.4100 #### [facility] [address] [place], [address] Cholesterol in LDL [Mass/Vol] 71 mg/dL Normal 0-130 [facility] Comment on above: Order Comment: Order Date: 03/20/24 Order Info: 666-06 - BMP Order Info: 27908-4 - LIPID Order Date: 11/18/23 Order Info: 1920-01 - AST Order Info: 1741-11 - ALT Performed By: #### L 501.4405, L500.4100, L501.4100 #### [facility] [address] [place], [address] Cholesterol in VLDL [Mass/Vol] 16 mg/dL Normal 5-40 [facility] Comment on above: Order Comment: Order Date: 03/20/24 Order Info: 666-06 - BMP Order Info: - LIPID Order Date: 11/18/23 Order Info: 1920-01 - AST Order Info: 1741-11 - ALT Performed By: #### L 501.4405, L500.4100, L501.4100 #### [facility] [address] [place], [address] Triglyceride [Mass/Vol] 78 mg/dL Normal [facility] Comment on above: Order Comment: Order Date: 03/20/24 Order Info: 666-06 - BMP Order Info: [id number] - LIPID Order Date: 11/18/23 Order Info: 1920-01 - AST Order Info: 1741-11 - ALT Result Comment: The drugs N-Acetylcysteine and Metamizole may falsely depress this assay. Serum Triglycerides Reference Interval Normal <150 mg/dL Borderline high 150 - 199 mg/dL High 200 - 499 mg/dL Very High > or = 500 mg/dL Performed By: #### L 501.4405, L500.4100, L501.4100 #### [facility] [address] [place], [address] Protein+Creatinine Ratio,Uri neon 04-17-2024 PROT:CRE RATIO 301 mg/g CRE High 0-200 [facility] Comment on above: Performed By: #### L 300.4310, L300.3900 #### [facility] [address] [place], [address] Protein (U) [Mass/Vol] 20.1 mg/dL High <11.9 [facility] Comment on above: Performed By: #### L 300.4310, L300.3900 #### [facility] [address] [place], [address] UR CREAT 66.70 mg/dL Normal NO RANGE EST. [facility] Comment on above: Performed By: #### L 300.4310, L300.3900 #### [facility] [address] [place], [address] MRI BRAIN WITH PERFUSIONon 1 MRI BRAIN WITH PERFUSION EXAM: MRI BRAIN WITH PERFUSION, 03/14/2024 15:39 PM COMPARISON: MRI brain dated November 29, 2023. A PET/CT dated March 14, 2024 was also reviewed. CLINICAL INDICATIONS: 78-year-old female. Grade 2 meningioma s/p RT. Evaluation for progression. 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 Study was performed at 1.5 [place]. Dynamic susceptibility contrast MR perfusion imaging was performed. CONTRAST: Gadopiclenol SOLN 1-25 mL; Route of Administration: Intravenous; Dose: 10 mL. FINDINGS: Redemonstrated postsurgical changes related to craniotomy for meningioma resection. Unchanged areas of encephalomalacia and gliosis in the left frontal lobe underlying the surgical site. Expected postsurgical dural thickening without evidence of a suspicious nodular enhancing focus. No discrete focus of elevated relative blood volume is identified on perfusion imaging. No evidence of mass effect. Mild hemosiderin along the left cerebral convexity. Small stable heterogeneously T1-hyperintense collection at the left cranioplasty site. No evidence of acute infarct is identified. No additional abnormal enhancement. Scattered foci of T2 prolongation in the periventricular and deep white matter are nonspecific but compatible with chronic microvascular changes and/or treatment-related changes. Small remote infarct in the right cerebellar hemisphere, unchanged. Sellar and parasellar structures are unremarkable. Ventricles and sulci are mildly prominent, compatible with parenchymal volume loss. Minimal mucosal thickening in the paranasal sinuses. Bilateral cataract surgery. IMPRESSION: Stable posttreatment findings related to meningioma resection. No evidence of recurrent tumor. I personally viewed and interpreted these images and I have reviewed and approved this report. Normal [facility] PT Skull base to mid-thighon 03-14-2024 IMPRESSION: Persistent 4 foci of tracer avidity along the postsurgical site with similar distribution but decrease in overall intensity of tracer activity in the left frontal craniotomy site and post surgical bed, findings remain indeterminate and could be either postsurgical, although residual/recurrent disease cannot be entirely excluded. OLOGY EXAM: NUC PET NEUROENDOCRINE, 03/14/2024 10:34 AM CLINICAL INDICATIONS: grade 2 meningioma eval for progression; , COMPARISON: PET/CT 01/12/23.MRI brain 11/29/23 CT DOSE: DLP: 453 mGy x cm kVp: 120 TECHNIQUE: Approximately 65 minutes following the injection of 2.6 mCi of Gallium-68 Dotatate, the patient was positioned on the Siemens Biograph mCT TOF< PET/CT-64, [employer] imaging unit.. A low resolution non-contrast CT was obtained from the top of the head through the mid-femurs for use in attenuation correction and anatomic correlation. PET emission scans of this anatomic region were acquired shortly thereafter. Axial, sagittal, coronal and maximal intensity projection reconstruction images were presented for interpretation. FINDINGS: Head/Neck: Physiologic activity seen within the pituitary gland, salivary glands, and thyroid. Postsurgical change of left frontal lobe, unchanged. There are persistent 4 foci of tracer avidity along the postsurgical site with similar distribution but decrease in overall intensity of tracer activity. There is a focus in the superior anterior medial aspect with maximum SUV 4.8, previously 9.3. There is a focus along the inferior most craniectomy site within the calvarium with maximum SUV 3.1, previously 7.3. Additional focus along the cranioplasty flap associated with surgical clip has maximum SUV 3.1, previously 5.6. There is a focus of tracer avid subcutaneous stranding/mass in the superior anterior cranioplasty site with maximum SUV 3.8, previously 6.4. Chest: No suspicious tracer avid lung parenchymal lesions or lymphadenopathy. Abdomen/Pelvis: Intense physiologic uptake seen within the spleen and adrenal glands which can obscure potential disease in these structures. Milder physiologic uptake seen within the liver. Musculoskeletal: No suspicious tracer avid osseous foci. RADIOLOGY Anthony Ricci MD - 03/14/2024 EXAM: NUC PET NEUROENDOCRINE, 03/14/2024 10:34 AM CLINICAL INDICATIONS: grade 2 meningioma eval for progression; , COMPARISON: PET/CT 01/12/23.MRI brain 11/29/23 CT DOSE: DLP: 453 mGy x cm kVp: 120 TECHNIQUE: Approximately 65 minutes following the injection of 2.6 mCi of Gallium-68 Dotatate, the patient was positioned on the Siemens [email or web address] mCT TOF< PET/CT-64, [facility] imaging unit.. A low resolution non-contrast CT was obtained from the top of the head through the mid-femurs for use in attenuation correction and anatomic correlation. PET emission scans of this anatomic region were acquired shortly thereafter. Axial, sagittal, coronal and maximal intensity projection reconstruction images were presented for interpretation. FINDINGS: Head/Neck: Physiologic activity seen within the pituitary gland, salivary glands, and thyroid. Postsurgical change of left frontal lobe, unchanged. There are persistent 4 foci of tracer avidity along the postsurgical site with similar distribution but decrease in overall intensity of tracer activity. There is a focus in the superior anterior medial aspect with maximum SUV 4.8, previously 9.3. There is a focus along the inferior most craniectomy site within the calvarium with maximum SUV 3.1, previously 7.3. Additional focus along the cranioplasty flap associated with surgical clip has maximum SUV 3.1, previously 5.6. There is a focus of tracer avid subcutaneous stranding/mass in the superior anterior cranioplasty site with maximum SUV 3.8, previously 6.4. Chest: No suspicious tracer avid lung parenchymal lesions or lymphadenopathy. Abdomen/Pelvis: Intense physiologic uptake seen within the spleen and adrenal glands which can obscure potential disease in these structures. Milder physiologic uptake seen within the liver. Musculoskeletal: No suspicious tracer avid osseous foci. IMPRESSION IMPRESSION: Persistent 4 foci of tracer avidity along the postsurgical site with similar distribution but decrease in overall intensity of tracer activity in the left frontal craniotomy site and post surgical bed, findings remain indeterminate and could be either postsurgical, although residual/recurrent disease cannot be entirely excluded. [facility] Radiology Study observation (narrative) [facility] PT Skull base to mid-thighOr dered By: Anthony Ricci on 03-14-2024 [facility] Work Phone: PT D/C Summary (1)on 024 PT D/C Summary (1) [facility] Physical Therapy [facility] [address] [place] [address]. [address] [place] [address] / REHABILITATION SERVICES DISCHARGE SUMMARY MR#: [id number] Acct: [id number] Name: SARAH MCGUIRE Rep #: [id number] : 1945 78 From: Corey Zhao DPT, OCS, CSCS Referring Dr.: Dr. Monika Venegas MD Status: RE G RCR Insurance: MEDICARE PART A B MEDICARE SUPPLEMENT PLAN Discharge Summary D/C summary: It has been my pleasure to treat SARAH MCGUIRE referred by Dr. Monika Venegas MD, with the diagnosis of Stroke for a total of 74 visit(s). Discharge Date: 03/09/24 Please see the following information for a summary of their discharge status. Subjective Subjective: States doing exercises daily when not in PT. Uses wh walker but sometimes wiill walk with dtr with cane. Taking things out of microwave and putting on walker and pushing to table. L leg still painful and tight especially if going to rain.Dtr agreeable. Picking tray up with two hands spometimes adn one hand. Pain L quad: Pain Intensity (Out of 10): Unrated Overall Improvement % Improvement: 25 Objective Objective/Function: 6 minutes for 3/4 lap today with cane and 5 LOB typically when she stops her feet and her body continues FW(panics) Mod A. Walks in with wh walker and does so well without a problem. TUG is still 32+ seconds adn 50% + of that time is turning once she gets back to chair lacking confidence to sit and has been that way for some time without lasting improvement. 30 sec STS is status quo and good for her age but does not on her own fully shift weight forward and prefers holding on the whole time. Can staand without UE. LEFS is not improving overall She did product picker object with two hands, place on walker roll it to a goal and take it off and place it with 2hands but slow and lacks confidence with balance. Goals Goal 1:: 30 seconds on TUG to show improved mobility. Goal Progress: Goal Met Goal 2:: Pt compliant 5x/week with full HEP to help limit effects of sedentarism Goal Progress: Goal Met subjectively Goal 3:: 10 on 30 sec STS to show improved strength and confidence. Goal Progress: Goal Met Goal 4:: Maintain 23 seconds TUG, 14 on 30 sec sit to stand and ability to walk with one cane one lap without LOB with 1x/week PT Goal Progress: Not Progressing Goal 5:: walk one lap at in under 10 minutes with cane and CGA Goal Progress: Goal Met Goal 6:: place object on walker from a shelf with twohands and good weight shift and push it across floor 8/8 x placing it back on shelf with two hands without LOB. Goal Progress: slow but met. Plan Plan: Pt seems to lack confidence and have fear that causes anxiety which panics her in walking and LOB or causes huge increases in time on TUG or slows way down weight shifts. Repetition and HEP are not helping this. PT will be D?C and will see eye doctor and surgeon for f/u and expectations as she seems to have reached maximum medical improvement after a year of therapy. D/C Information d/c sentence: If there are questions or concerns regarding this patient's physical therapy, please feel free to call me at [phone]. Thank you for the referral of this patient. Sincerely, Corey Zhao, DPT, OCS, CSCS Balance/Gait/Functional tests Balance/Special Test Scores Lower Extremity Functional Score: 29 TUG Test Time Seconds: 31 Tug Test: >30sec.=impaired mobility 30 Second Chair Rise Test Seconds: 15 Improvement % Improvement: 25 03/09/24 1623 CC: Dr. Monika Venegas MD EBG Signed Normal [facility] OT D/C Summaryon 03-01-2024 OT D/C Summary [facility] Occupational Therapy [facility] [address] [place] [address] / REHABILITATION SERVICES DISCHARGE SUMMARY MR#: [id number] Acct: [id number] Name: SARAH MCGUIRE Rep #: [id number] : 1945 78 From: Lauryn Tubbs Referring Dr.: Dr. Monika Venegas MD Status: RE G RCR Eval Date: Discharge Date: Discharge Summary D/C Summary: It has been my pleasure to treat SARAH MCGUIRE under orders from Dr. Monika Venegas MD, for the diagnosis of CVA for a total of 22 visit(s). Please see the following information for a summary of their discharge status. Overall Improvement % Improvement: 35 Objective Objective/Function: L shoulder 11.3# R shoulder 10.7# Goals Patient Goals: Regain Strength, Improve Fine Motor Skills, Use Hand/Wrist/Arm Normally Again, Be More Independent in ADLS, Resume Former Household Responsibilities (Cooking,Cleaning,Yard, etc.) and Resume Hobbies Goal:: pt will increase L shoulder flexion strength to 15 pounds in order to maximize I in self care as well as light IADL tasks 01/10/24: 11.5 pounds 02/22: 9/9 pounds 03/01/24: 11.3 pounds NOT MET pt will increase R shoulder flexion strength to 10 pounds in order to maximize I in self care as well as light IADL tasks 01/10/24: 10.2 GOAL MET NEW: pt will increase R shoulder flexion strength to 12 pounds in order to maximize I in self care as well as light IADL tasks 02/22: 9.5# 03/01/24: 10.7# NOT MET pt will increase L bicep strength to 15 pounds in order to maximize I in self care tasks as well as light IADL tasks 01/10/24: 11.8# 02/22:16.2# GOAL MET pt will increase R bicep strength to 13 pounds in order to maximize I in self care tasks as well as light IADL tasks 01/10/24: 9# 02/22:14.1# GOAL MET pt will improve L hoop driving machine operator helper strength to 35 pounds or more in order to maximize I in light IADL tasks as well as cross stitching 01/10/24: 25# 02/22: 30# 03/01: 32# NOT MET pt will improve R hoop driving machine operator helper strength to 30 pounds or more in order to maximize I in light IADL tasks as well as cross stitching 01/10/24: 22# 02/22: 35# GOAL MET Goal:: Pt will improve L hand coordination with improvement in 9 hole test scoring 45 sec or less in order to increase I in IADL as well as cross stitching task 01/10/24: 29 sec GOAL MET pt will demonstrate the ability to manipulation and manage 5/5 buttons of various size in order to maximize I in ADL tasks able to do 5/5 buttons with button hook as needed GOAL MET Goal:: pt will completing hair washing task set up assistance in order to return to PLOF PR GOAL MET Plan Plan: AROM/AAROM/PROM strengthening coordination D/C Information Discharge Comments: pt seen for dx of CVA. progress made in fine motor control manipulation skills as well as overall UB strength. pt to continue exercises and manipulation tasks at home for ongoing progress. d/c sentence: If there are questions or concerns regarding this patient's occupational therapy, please fell free to call me at [phone]. Thank you for the referral of this patient. Sincerely, Lauryn Tubbs 03/01/24 6875 CC: Dr. Monika Venegas MD CK Signed Normal [facility] OT D/C of Non Returning Pton 03-01-2024 OT D/C of Non Returning Pt [facility] Occupational Therapy [facility] [address] [place] [address]. [address] [place] [address] / REHABILITATION SERVICES DISCHARGE SUMMARY MR#: [id number] Acct: [id number] Name: SARAH MCGUIRE Rep #: [id number] : 1945 78 From: Lauryn Tbubs Referring Dr.: Dr. Monika Venegas MD Status: RE G RCR Eval Date: Discharge Date: Patient Information Patient Information: SARAH MCGUIRE was seen in my office for initial evaluation on 11/22/23. The following Plan of Care was established for this patient: POC Established Initial Frequency: 2x /Week Initial Duration: 6 Weeks Plan: AROM/AAROM/PROM strengthening coordination Anticipated Interventions Anticipated Interventions: A/AAROM/PROM, Strengthening, Joint Protection/Energy Conservation, Fine Motor Coord/Antelmo, Neuro Reeducation, ADL Training, Education re assistive Equipment, Education re Diagnosis, Caregiver Training and Home Program Last Seen Last Seen: This patient was last seen in our office 03/01/24. Pertinent comments regarding their Occupational therapy will appear below: this 78 year old female seen in OT for dx of CVA. pt seen for improved UB strength C ed in adaptive equipment. pt has progressed in all goals and to be discharged at this time pt in agreeance. At this point I will be discontinuing this patient from occupational therapy. I would be happy to see this patient again in the future if found appropriate by the physician. Thank you! Lauryn Tubbs 03/01/24 1707 CC: Dr. Monika Venegas MD CK Signed Normal [facility] Comprehensive Metabolic Prof ilon 02-24-2024 Albumin [Mass/Vol] 3.9 g/dL Normal 3.2-5.0 [facility] Comment on above: Order Comment: Order Date: 01/17/24Order Info: 0786-1 - CMP Performed By: #### L 300.2297, L300.0985 #### [facility] [address] [place], [place], [id number] Albumin/Globulin [Mass ratio] 1.3 {ratio} Normal 0.9-2.4 [facility] Comment on above: Order Comment: Order Date: 01/17/24Order Info: 0786-1 - CMP Performed By: #### L 300.4310, L300.3900 #### [facility] [address] [place], [address] ALK P 81 U/L Normal 45-117 [facility] Comment on above: Order Comment: Order Date: 01/17/24Order Info: 0786-1 - CMP Performed By: #### L 300.4310, L300.3900 #### [facility] [address] [place], [address] ALT [Catalytic activity/Vol] 33 U/L Normal 13-56 [facility] Comment on above: Order Comment: Order Date: 01/17/24Order Info: 0786-1 - CMP Performed By: #### L 300.4310, L300.3900 #### [facility] [address] [place], [address] AST [Catalytic activity/Vol] 22 U/L Normal 15-37 [facility] Comment on above: Order Comment: Order Date: 01/17/24Order Info: 0786-1 - CMP Performed By: #### L 300.4310, L300.3900 #### [facility] [address] [place], [address] Bilirubin [Mass/Vol] 0.80 mg/dL Normal 0.20-1.00 [facility] Comment on above: Order Comment: Order Date: 01/17/24Order Info: 0786-1 - CMP Result Comment: For patients on eltrombopag therapy, use of Dimension [place] TBIL is not recommended. Performed By: #### L 300.4310, L300.3900 #### [facility] [address] [place], [address] BUN/CRE 16.5 RATIO Normal 10-20 [facility] Comment on above: Order Comment: Order Date: 01/17/24Order Info: 0786-1 - CMP Performed By: #### L 300.4310, L300.3900 #### [facility] [address] [place], [address] CA,Total 9.1 mg/dL Normal 8.5-10.1 [facility] Comment on above: Order Comment: Order Date: 01/17/24Order Info: 0786-1 - CMP Performed By: #### L 300.4310, L300.3900 #### [facility] [address] [place], [address] Chloride [Moles/Vol] 96 mmol/L Low 98-107 [facility] Comment on above: Order Comment: Order Date: 01/17/24Order Info: 07-1 - CMP Performed By: #### L 300.4310, L300.3900 #### [facility] [address] [place], [address] CO2 [Moles/Vol] 27.0 mmol/L Normal 21.0-32.0 [facility] Comment on above: Order Comment: Order Date: 01/17/24Order Info: 07- - CMP Performed By: #### L 300.4310, L300.3900 #### [facility] [address] [place], [address] Creatinine [Mass/Vol] 0.73 mg/dL Normal 0.55-1.02 [facility] Comment on above: Order Comment: Order Date: 01/17/24Order Info: 0786-1 - CMP Result Comment: The validity of the calculated GFR GFRAA in patients over 70 years has not been determined. Clinical correlation is essential. Performed By: #### L 300.4310, L300.3900 #### [facility] [address] [place], [address] EST GFR - AA 99 mL/min Normal >60 [facility] Comment on above: Order Comment: Order Date: 01/17/24Order Info: 0786-1 - CMP Result Comment: Afri can [place] GFR Calc Performed By: #### L 300.4310, L300.3900 #### [facility] [address] [place], [address] GAP 7 Normal 5-15 [facility] Comment on above: Order Comment: Order Date: 01/17/24Order Info: 0786-1 - CMP Performed By: #### L 300.4310, L300.3900 #### [facility] [address] [place], [address] GFR/1.73 sq M.predicted among non-blacks MDRD (S/P/Bld) [Vol rate/Area] 82 mL/min/{1.73_m2} Normal >60 [facility] Comment on above: Order Comment: Order Date: 01/17/24Order Info: 0786-1 - CMP Result Comment: Non- GFR Calc Performed By: #### L 300.4310, L300.3900 #### [facility] [address] [place], [address] Globulin (S) [Mass/Vol] 2.9 g/dL Normal 2.2-4.2 [facility] Comment on above: Order Comment: Order Date: 01/17/24Order Info: 0786-1 - CMP Performed By: #### L 300.4310, L300.3900 #### [facility] [address] [place], [address] Glucose [Mass/Vol] 145 mg/dL High 74-106 [facility] Comment on above: Order Comment: Order Date: 01/17/24Order Info: 0786-1 - CMP Result Comment: Fast ing Glucose result greater than or equal to 126 mg/dL suggests DIABETES MELLITUS per A.D.A. criteria. Performed By: #### L 300.4310, L300.3900 #### [facility] [address] [place], [address] Potassium [Moles/Vol] 3.4 mmol/L Low 3.5-5.1 [facility] Comment on above: Order Comment: Order Date: 01/17/24Order Info: 0786-1 - CMP Performed By: #### L 300.4310, L300.3900 #### [facility] [address] [place], [address] Sodium [Moles/Vol] 130 mmol/L Low 136-145 [facility] Comment on above: Order Comment: Order Date: 01/17/24Order Info: 0786-1 - CMP Performed By: #### L 300.4310, L300.3900 #### [facility] [address] [place], [address] T PROT 6.8 g/dL Normal 6.4-8.2 [facility] Comment on above: Order Comment: Order Date: 01/17/24Order Info: 0786-1 - CMP Performed By: #### L 300.4310, L300.3900 #### [facility] [address] [place], [address] Urea nitrogen [Mass/Vol] 12 mg/dL Normal 7-18 [facility] Comment on above: Order Comment: Order Date: 01/17/24Order Info: 0786-1 - CMP Performed By: #### L 300.4310, L300.3900 #### [facility] [address] [place], [address] Re-Evalution OTon 02-23-2024 Re-Evalution OT [facility] Occupational Therapy [address] [place] [address] / REEVALUATION / MEDICARE RECERTIFICATION OCCUPATIONAL THERAPY MR#: [id number] Acct: [id number] Name: SARAH MCGUIRE Rep #: [id number] : 1945 78 From: Lauryn Tubbs Referring Dr.: Dr. Monika Venegas MD Status: RE G RCR Insurance: MEDICARE PART A B Eval Date: MEDICARE SUPPLEMENT PLAN Re-Evaluation Intro: Dr. Monika Venegas MD, It has been my pleasure to treat SARAH MCGUIRE over the last 20 visits for CVA. Please see the progress note below for an update on the occupational therapy plan of care! Subjective Subjective: pt arrives with family doing well no new concerns Objective Objective/Function: L shoulder 9.9# R shoulder 9.5# L bicep 16.2# R bicep 14.1# L hoop driving machine operator helper 30# R hoop driving machine operator helper 35# Plan Plan Frequency: 2x /Week Duration: 6 Weeks Visits in this POC: (Insurance Limit: $2330) 6 weeks (2x week) Plan: AROM/AAROM/PROM strengthening coordination Goals Goals Patient Goals: Regain Strength, Improve Fine Motor Skills, Use Hand/Wrist/Arm Normally Again, Be More Independent in ADLS, Resume Former Household Responsibilities (Cooking,Cleaning,Yard, etc.) and Resume Hobbies Goal:: pt will increase L shoulder flexion strength to 15 pounds in order to maximize I in self care as well as light IADL tasks 01/10/24: 11.5 pounds 02/22: 9/9 pounds pt will increase R shoulder flexion strength to 10 pounds in order to maximize I in self care as well as light IADL tasks 01/10/24: 10.2 GOAL MET NEW: pt will increase R shoulder flexion strength to 12 pounds in order to maximize I in self care as well as light IADL tasks 02/22: 9.5# pt will increase L bicep strength to 15 pounds in order to maximize I in self care tasks as well as light IADL tasks 01/10/24: 11.8# 02/22:16.2# GOAL MET pt will increase R bicep strength to 13 pounds in order to maximize I in self care tasks as well as light IADL tasks 01/10/24: 9# 02/22:14.1# GOAL MET pt will improve L hoop driving machine operator helper strength to 35 pounds or more in order to maximize I in light IADL tasks as well as cross stitching 01/10/24: 25# 02/22: 30# pt will improve R hoop driving machine operator helper strength to 30 pounds or more in order to maximize I in light IADL tasks as well as cross stitching 01/10/24: 22# 02/22: 35# GOAL MET Goal:: Pt will improve L hand coordination with improvement in 9 hole test scoring 45 sec or less in order to increase I in IADL as well as cross stitching task 01/10/24: 29 sec GOAL MET pt will demonstrate the ability to manipulation and manage 5/5 buttons of various size in order to maximize I in ADL tasks able to do 5/5 buttons with button hook as needed Goal:: pt will completing hair washing task set up assistance in order to return to PLOF PR GOAL MET Anticipated Interventions Anticipated Interventions Anticipated Interventions: A/AAROM/PROM, Strengthening, Joint Protection/Energy Conservation, Fine Motor Coord/Antelmo, Neuro Reeducation, ADL Training, Education re assistive Equipment, Education re Diagnosis, Caregiver Training and Home Program Re-Evaluation Ending Re-evaluation ending: Please do not hesitate to contact me at [phone] by phone or if you have questions or concerns regarding this new plan of care! Sincerely, Lauryn Tubbs 02/23/24 0092 CC: Dr. Monika Venegas MD CK Signed For Medicare only, by signing this I certify the plan of care. Physicians Signature Date Normal [facility] Re-Evaluation - PT (1)on Re-Evaluation - PT (1) [facility] [address] [place] [address] / REEVALUATION / MEDICARE RECERTIFICATION PHYSICAL THERAPY MR#: [id number] Acct: [id number] Name: SARAH MCGUIRE Rep #: [id number] : 1945 78 From: Corey Zhao DPT, OCS, CSCS Referring Dr.: Dr. Monika Venegas MD Status:REG RCR Insurance: MEDICARE PART A B MEDICARE SUPPLEMENT PLAN Re-Evaluation Intro: Dr. Monika Venegas MD, It has been my pleasure to treat SARAH MCGUIRE over the last 63 visits for Stroke. Please see the progress note below for an update on the physical therapy plan of care! Subjective Subjective: Doing exercises at home daily. Legs still don't feel normal and feel not right but have felt that way since this incident. Staying at home by self one night per week. Using walker at home. Objective Objective/Function: one lap 8 minutes with 2 LOB when you s. W with body and not feet when she stops walking causing her to tumble FW. Decent steps and movement today until she stops which she does often in response to others in her visual field or stress etc.Dtr adn her state difficulty getting items out of microwave adn onto tray to table and refrigerator due to standing and reaching balance. Much education today on likely reaching maximum mobility with her confidence and limitations and need to use wh walker forever. They want to get better with getting items from fridge/microwave onto walker to push them to table. mental confidence continues to be a problem as well as legs not feelign right and have not since her incident. I educated her that they likely will not but doctor will be a sharon person totalk to this about. New goal and fair prognosis for that goal. Prepared pt and dtr for maximum medical improvement. Plan Plan Plan: 2x/week for 8 visits until end February to work strictyl on... 1. standing reaching balance to mimic moving items from fridge/microwave to tray on walker and pushing them safely. 2. Answer and progress any exercises via HEP, work to standing balance and reach at home with pics. Balance/Gait/Functional tests Balance/Special Test Scores Lower Extremity Functional Score: 23 TUG Test Time Seconds: 31 Tug Test: >30sec.=impaired mobility 30 Second Chair Rise Test Seconds: 17 Goals Goals Goal 1:: 30 seconds on TUG to show improved mobility. Goal Time Frame: 6-8 Weeks Goal Progress: Goal Met Goal 2:: Pt compliant 5x/week with full HEP to help limit effects of sedentarism Goal Time Frame: 6-8 Weeks Goal Progress: Goal Met subjectively Goal 3:: 10 on 30 sec STS to show improved strength and confidence. Goal Time Frame: 6-8 Weeks Goal Progress: Goal Met Goal 4:: Maintain 23 seconds TUG, 14 on 30 sec sit to stand and ability to walk with one cane one lap without LOB with 1x/week PT Goal Time Frame: 4-6 Weeks Goal Progress: Has been worse. Goal 5:: walk one lap at in under 10 minutes with cane and CGA Goal Time Frame: 6-8 Weeks Goal Progress: Goal Met Goal 6:: place object on walker from a shelf with twohands and good weight shift and push it across floor 8/8 x placing it back on shelf with two hands without LOB. Goal Time Frame: 4-6 Weeks Goal Progress: NEW GOAL Anticipated Interventions Anticipated Interventions Patient/Client Instruction: Educate patient on: Condition For the Purpose of:: To improve gait and locomotor functions Therapeutic Exercise to Include: Strength training and Gait and locomotor training Re-Evaluation Ending Re-evaluation ending: Please do not hesitate to contact me at [phone] by phone or if you have questions or concerns regarding this new plan of care! Sincerely, Corey Zhao, DPT, OCS, CSCS 01/19/24 0902 CC: Dr. Monika Venegas MD EBG Signed For Medicare only, by signing this I certify the plan of care. Physicians Signature Date Normal [facility] 12 Lead EKG performed by [facility] on 01-17-2024 12 Lead EKG performed by [facility] [address] [place] [address] 12 Lead EKG performed by [facility] [facility] 01/17/24 1323 MR#: [id number] Acct: [id number] Name: SARAH MCGUIRE Rep #: [id number] : 1945 78 From: Lolly Haro Attending Dr: MAGALY Davis Status: DEP AMB Ordering Dr: Lolly Alejandra Date: 01/04 08/27 Location: [facility] Sex: F C Admitted: [facility]/12 Lead EKG performed by [facility] ECG Report Interpretation ---Sinus Bradycardia WITHIN NORMAL LIMITSElectronically signed on 02/07/2024 at 15:56 by German [employer] Version 8610 02/07/24 1601 Date Lolly MCKENZIE CC: Dr. Monika Venegas MD Date Dictated: 01/17/241322 Date Transcribed: 01/17/241322 Supply Chain Manager: SUSAN Signed Normal [facility] Cardiology Visit Reporton Cardiology Visit Report [facility] [address] [place] [address] OFFICE VISIT Date of Service: 01/17/24 MR#: [id number] Acct: [id number] Name: SARAH MCGUIRE Rep #: [id number] : 1945 Provider: MAGALY Fitzgerald Age/Sex: 78/F Location: [facility] Status: Signed with Addenda ADDENDUM by MAGALY Davis on 01/17/24 at 1535 Addendum Addendum Details:: Patient did have low sodium. This is being managed by her primary care doctor. If she continues to have low sodium would consider stopping her hydrochlorothiazide and potassium supplement that was just started and starting her on spironolactone. Assessment and Plan Assessment and Plan (1) Paroxysmal atrial fibrillation: Status: Acute (2) jail current use of amiodarone: Status: Acute Orders: Orders 12 Lead EKG performed by [facility] Today Z79.899 - Other buttermaker (current) drug therapy T4 Free Direct Today I48.0 - Paroxysmal atrial fibrillation, Z79.899 - Other snf (current) drug therapy Thyroid Stim Hormone (TSH) Today I48.0 - Paroxysmal atrial fibrillation, Z79.899 - Other buttermaker (current) drug therapy Free T3 Today I48.0 - Paroxysmal atrial fibrillation, Z79.899 - Other snf (current) drug therapy Plan Details Follow Up: 9 Months (Conn ) 01/17/24 1535 A> Date Lolly Alejandra cc: Dr. Monika Venegas MD * Signed HPI HPI History of Present Illness Details: Sarah Mcguire is a 78-year-old female who presents here today for a hospital follow-up. She was hospitalized on 12/23/2022 for atrial fibs with RVR. 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 CTA demonstrated extensive atherosclerotic intracranial stenosis. While in the acute rehab floor today on her exam in the acute rehab floor she was noted to be tachycardic and an irregular rhythm. She was admitted to the hospital for further management. Cardiology was consulted. While in the hospital she was started on amiodarone and diltiazem. She did convert to sinus rhythm. She was not started on an anticoagulant immediately due to concerns over recent craniotomy. She was discharged back to rehab. She was discharged home on January 02, 2023. While in the rehab she was started on Eliquis. Her amiodarone was continued. She does have a history of ischemic CVA, paroxysmal atrial fibrillation, pulmonary hypertension, rheumatic mitral stenosis, anemia, hypertension and hyperlipidemia. She did have an echocardiogram done at [facility] prior to her craniotomy. This demonstrated left ventricle is of normal size and has normal wall thickness and normal global systolic function with an estimated ejection fraction of 65 to 70%. There were no wall motion abnormalities. Both atria were of normal size and there is no evidence of a right to left shunt. She has mild to moderate mitral stenosis with no regurgitation. The estimated right ventricular systolic pressure is elevated at 48 consistent with moderate pulmonary hypertension. She is following with [facility] every 3 months. She is still at [facility] for PT/OT. She is ambulating with walker. She does occasionally have dizziness. She does not have any edema. She does not have any chest pain/heaviness. She does not have any worsening SOB. Intake Vital Signs 07/19/23 13:50 01/17/24 14:16 01/17/24 14:18 Height 4 ft 8 in 4 ft 8 in 4 ft 8 in Weight: 114 lb BMI 25.5 BP 148/56 H Blood Pressure Location Lt brachial Position Sitting Respiration 18 Pulse 60 Pulse Source Monitor Pulse Oximetry (%) 97 Intake Visit Reasons: 6 M FU Fiscal Technician Required: No Is patient in pain?: No Allergies No Known Allergies Allergy (Verified 01/17/24 14:16) Medications ???Medication ???Instructions ???Recorded ???Confirmed ???Type multivitamin 1 tablet PO DAILY supplement 08/12/20 01/17/24 History calcium carbonate 500 mg-vitamin 2 each PO DAILY supplement 08/14/20 01/17/24 History D3 15 mcg (600 unit) tablet cholecalciferol (vitamin D3) 125 125 mcg PO DAILY supplement 08/14/20 01/17/24 History mcg (5,000 unit) capsule cyanocobalamin (vitamin B-12) 500 1,000 mcg PO DAILY supplement 08/14/20 01/17/24 History mcg chewable tablet acetaminophen 325 mg tablet 650 mg PO Q4H PRN pain 12/06/22 01/17/24 History (Tylenol) zinc sulfate 50 mg zinc (220 mg) 220 mg PO DAILY vitamin 12/06/22 01/17/24 History capsule (Orazinc) magnesium chloride 64 mg 128 mg (2 x 64 mg) PO BID #60 tabs 12/29/22 01/17/24 Rx (magnesium chloride) tablet,delayed release (Mag 64) apixaban 5 mg tablet 5 mg PO BID #60 tabs 08/17/23 (more content not included)... Normal [facility] Basic Metabolic Profile (BMP )on 01-13-2024 BUN/CRE 18.5 RATIO Normal 10-20 [facility] Comment on above: Order Comment: Order Date: 12/19/23 Order Info: 0667-1 - BMP Performed By: #### L 500.2500 #### [facility] [address] [place], [address] CA,Total 9.0 mg/dL Normal 8.5-10.1 [facility] Comment on above: Order Comment: Order Date: 12/19/23 Order Info: 666-06 - BMP Performed By: #### L 500.2500 #### [facility] [address] [place], [address] Chloride [Moles/Vol] 100 mmol/L Normal 98-107 [facility] Comment on above: Order Comment: Order Date: 12/19/23 Order Info: 666-06 - BMP Performed By: #### L 500.2500 #### [facility] [address] [place], [address] CO2 [Moles/Vol] 28.0 mmol/L Normal 21.0-32.0 [facility] Comment on above: Order Comment: Order Date: 12/19/23 Order Info: 666-06 - BMP Performed By: #### L 500.2500 #### [facility] [address] [place], [address] Creatinine [Mass/Vol] 0.81 mg/dL Normal 0.55-1.02 [facility] Comment on above: Order Comment: Order Date: 12/19/23 Order Info: 666-06 - BMP Result Comment: The validity of the calculated GFR GFRAA in patients over 70 years has not been determined. Clinical correlation is essential. Performed By: #### L 500.2500 #### [facility] [address] [place], [address] EST GFR - AA 87 mL/min Normal >60 [facility] Comment on above: Order Comment: Order Date: 12/19/23 Order Info: 666-06 - BMP Result Comment: Afri can Kenyan GFR Calc Performed By: #### L 500.2500 #### [facility] [address] [place], [address] GAP 7 Normal 5-15 [facility] Comment on above: Order Comment: Order Date: 12/19/23 Order Info: 06 - BMP Performed By: #### L 500.2500 #### [facility] [address] [place], [place], [address] GFR/1.73 sq M.predicted among non-blacks MDRD (S/P/Bld) [Vol rate/Area] 72 mL/min/{1.73_m2} Normal >60 [facility] Comment on above: Order Comment: Order Date: 12/19/23 Order Info: 06 - BMP Result Comment: Non- GFR Calc Performed By: #### L 500.2500 #### [facility] [address] [place], [place], [address] Glucose [Mass/Vol] 161 mg/dL High 74-106 [facility] Comment on above: Order Comment: Order Date: 12/19/23 Order Info: 06 - BMP Result Comment: Fast ing Glucose result greater than or equal to 126 mg/dL suggests DIABETES MELLITUS per A.D.A. criteria. Performed By: #### L 500.2500 #### [facility] [address] [place], [place], [address] Potassium [Moles/Vol] 3.3 mmol/L Low 3.5-5.1 [facility] Comment on above: Order Comment: Order Date: 12/19/23 Order Info: 0667 - BMP Performed By: #### L 500.2500 #### [facility] [address] [place], [place], [address] [phone] Sodium [Moles/Vol] 135 mmol/L Low 136-145 [facility] Comment on above: Order Comment: Order Date: 12/19/23 Order Info: 0667 - BMP Performed By: #### L 500.2500 #### [facility] [address] [place], [place], [address] [phone] Urea nitrogen [Mass/Vol] 15 mg/dL Normal 7-18 [facility] Comment on above: Order Comment: Order Date: 12/19/23 Order Info: 0667 - BMP Performed By: #### L 500.2500 #### [facility] [address], [address] Re-Evalution OTon 01-10-2024 Re-Evalution OT [facility] Occupational Therapy [facility] [address] [place] [address] / REEVALUATION / MEDICARE RECERTIFICATION OCCUPATIONAL THERAPY MR#: [id number] Acct: [id number] Name: SARAH MCGUIRE Rep #: [id number] : 1945 78 From: Lauryn Tubbs Referring Dr.: Dr. Monika Venegas MD Status: RE G RCR Insurance: MEDICARE PART A B Eval Date: MEDICARE SUPPLEMENT PLAN Re-Evaluation Intro: Dr. Monika Venegas MD, It has been my pleasure to treat SARAH MCGUIRE over the last 11 visits for CVA. Please see the progress note below for an update on the occupational therapy plan of care! Subjective Subjective: arrives with daughter doing well no new concners Plan Plan Frequency: 2x /Week Duration: 6 Weeks Visits in this POC: (Insurance Limit: $2330) 6 weeks (2x week) Plan: AROM/AAROM/PROM strengthening coordination Goals Goals Patient Goals: Regain Strength, Improve Fine Motor Skills, Use Hand/Wrist/Arm Normally Again, Be More Independent in ADLS, Resume Former Household Responsibilities (Cooking,Cleaning,Yard, etc.) and Resume Hobbies Goal:: pt will increase L shoulder flexion strength to 15 pounds in order to maximize I in self care as well as light IADL tasks 01/10/24: 11.5 pounds pt will increase R shoulder flexion strength to 10 pounds in order to maximize I in self care as well as light IADL tasks 01/10/24: 10.2 GOAL MET NEW: pt will increase R shoulder flexion strength to 12 pounds in order to maximize I in self care as well as light IADL tasks pt will increase L bicep strength to 15 pounds in order to maximize I in self care tasks as well as light IADL tasks 01/10/24: 11.8# pt will increase R bicep strength to 13 pounds in order to maximize I in self care tasks as well as light IADL tasks 01/10/24: 9# pt will improve L hoop driving machine operator helper strength to 35 pounds or more in order to maximize I in light IADL tasks as well as cross stitching 01/10/24: 25# pt will improve R hoop driving machine operator helper strength to 30 pounds or more in order to maximize I in light IADL tasks as well as cross stitching 01/10/24: 22# Goal:: Pt will improve L hand coordination with improvement in 9 hole test scoring 45 sec or less in order to increase I in IADL as well as cross stitching task 01/10/24: 29 sec GOAL MET pt will demonstrate the ability to manipulation and manage 5/5 buttons of various size in order to maximize I in ADL tasks able to button 4/4 small buttons this session ongoing Goal:: pt will completing hair washing task set up assistance in order to return to PLOF ongoing Anticipated Interventions Anticipated Interventions Anticipated Interventions: A/AAROM/PROM, Strengthening, Joint Protection/Energy Conservation, Fine Motor Coord/Antelmo, Neuro Reeducation, ADL Training, Education re assistive Equipment, Education re Diagnosis, Caregiver Training and Home Program Re-Evaluation Ending Re-evaluation ending: Please do not hesitate to contact me at [phone] by phone or if you have questions or concerns regarding this new plan of care! Sincerely, Lauryn Tubbs 01/10/24 5808 CC: Dr. Monika Venegas MD CK Signed For Medicare only, by signing this I certify the plan of care. Physicians Signature Date Normal [facility] Basic Metabolic Profile (BMP )on 12-16-2023 BUN/CRE 18.1 RATIO Normal 10-20 [facility] Comment on above: Order Comment: Order Date: 11/21/23Order Info: 0667-1 - BMP Performed By: #### L 300.7628, L300.3900 #### [facility] [address] [place], [address] CA,Total 9.5 mg/dL Normal 8.5-10.1 [facility] Comment on above: Order Comment: Order Date: 11/21/23Order Info: 666-06 - BMP Performed By: #### L 300.4310, L300.3900 #### [facility] [address] [place], [address] Chloride [Moles/Vol] 96 mmol/L Low 98-107 [facility] Comment on above: Order Comment: Order Date: 11/21/23Order Info: 666-06 - BMP Performed By: #### L 300.4310, L300.3900 #### [facility] [address] [place], [address] CO2 [Moles/Vol] 26.0 mmol/L Normal 21.0-32.0 [facility] Comment on above: Order Comment: Order Date: 11/21/23Order Info: 666-06 - BMP Performed By: #### L 300.4310, L300.3900 #### [facility] [address] [place], [address] Creatinine [Mass/Vol] 0.83 mg/dL Normal 0.55-1.02 [facility] Comment on above: Order Comment: Order Date: 11/21/23Order Info: 666-06 - BMP Result Comment: The validity of the calculated GFR GFRAA in patients over 70 years has not been determined. Clinical correlation is essential. Performed By: #### L 300.4310, L300.3900 #### [facility] [address] [place], [address] EST GFR - AA 85 mL/min Normal >60 [facility] Comment on above: Order Comment: Order Date: 11/21/23Order Info: 666-06 - BMP Result Comment: Afri can Kenyan GFR Calc Performed By: #### L 300.4310, L300.3900 #### [facility] [address] [place], [address] GAP 9 Normal 5-15 [facility] Comment on above: Order Comment: Order Date: 11/21/23Order Info: 666-06 - BMP Performed By: #### L 300.4310, L300.3900 #### [facility] [address] [place], [address] GFR/1.73 sq M.predicted among non-blacks MDRD (S/P/Bld) [Vol rate/Area] 70 mL/min/{1.73_m2} Normal >60 [facility] Comment on above: Order Comment: Order Date: 11/21/23Order Info: 666-06 - BMP Result Comment: Non- GFR Calc Performed By: #### L 300.4310, L300.3900 #### [facility] [address] [place], [address] Glucose [Mass/Vol] 98 mg/dL Normal 74-106 [facility] Comment on above: Order Comment: Order Date: 11/21/23Order Info: 666-06 - BMP Performed By: #### L 300.4310, L300.3900 #### [facility] [address] [place], [address] Potassium [Moles/Vol] 3.4 mmol/L Low 3.5-5.1 [facility] Comment on above: Order Comment: Order Date: 11/21/23Order Info: 666-06 - BMP Performed By: #### L 300.4310, L300.3900 #### [facility] [address] [place], [address] Sodium [Moles/Vol] 131 mmol/L Low 136-145 [facility] Comment on above: Order Comment: Order Date: 11/21/23Order Info: 666-06 - BMP Performed By: #### L 300.4310, L300.3900 #### [facility] [address] 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 CONTRAST: Gadopiclenol SOLN 1-25 mL; Route of Administration: Intravenous; Dose: 10 mL. FINDINGS: Again noted are postoperative changes following previous craniotomy and surgical resection of meningioma along the lateral/superior convexity of the left hemisphere. There is chronic scarring and heterogeneous postoperative fluid again noted along the craniotomy site which appears stable. There is chronic smooth dural thickening adjacent to the craniotomy site which appears stable. There is no evidence of recurrent nodular enhancing lesion. Stable areas of encephalomalacia and gliosis along the periphery of the left frontal lobe. No new parenchymal abnormality. No other acute abnormality such as acute infarct or hemorrhage. No extracerebral collection. Sellar and parasellar structures are unremarkable. There is mild chronic atrophy again noted in the cerebellum. Posterior fossa is otherwise unremarkable. Ventricles and sulci are within normal limits. Extracranial structures are unremarkable. IMPRESSION: Stable compared to previous MRI. Postoperative changes with no evidence of recurrent tumor. Normal [facility] OT General Evaluationon 11-04 OT General Evaluation [facility] Occupational Therapy [facility] [place] [address] / REHABILITATION SERVICES INITIAL EVALUATION MR#: [id number] Acct: [id number] Name: SARAH MCGUIRE Rep #: [id number] : 1945 78 From: Lauryn Tubbs Referring Dr.: Dr. Monika Venegas MD Status: RE G RCR Insurance: MEDICARE PART A B Eval Date: MEDICARE SUPPLEMENT PLAN Patient's Visit Information Visit Information Visit Information: SARAH MCGUIRE is a 78 year old F, referred to Occupational Therapy by Dr. Monika Venegas MD, with a diagnosis of CVA. Date of Evaluation: 11/22/23 Occupational Therapist: Lauryn Tubbs Subjective Subjective: This 78 year old female present to this date for OT eval with dx of CVA. 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 pt with internal bleeding then back to surgery pt brought back to [facility] december 06 for rehabilitation drain tube was taken out and began having leg pain. Pt was in rehab then home health therapy. underwent radiation to assure does not come back home therapy started back up after radiation complete. pt did have a fall in october which set pt back due to lack of confidence. pt does receive assistance with bathing washing of hair and getting in and out of shower, does require occ assist for compression socks. pt is R hand dominant. Per family member pt was affected on both sides of body. pt enjoys counter cross stitching. Objective Objective/Observation: Pt arrives this date using rollator as means of mobility to therapy room. This pt requiring cues to assure safety as well as problem solving of tasks. Pt relies on family member during intake to answer majority of detailed questions for her. ROM Shoulder: wfl Elbow: wfl Forearm: wfl Wrist: wfl CMC: wfl MP: wfl IP: wfl Radial Abduction: wfl Palmar Abduction: wfl Opposition: wfl MP: wfl PIP: wfl DIP: wfl ROM Comments: within normal range Strength Shoulder: L 8.4 R 4.9 pounds Elbow: L 10.7 R 8.3 pounds Maintenance Groundman: L 30 R 25 pounds Lateral Pinch: L 4 R 5 pounds Tripod Pinch: L2 R 1 pounds Sensation Sensation Comments: L numbness and tingling 2.83 semmes Nine Hole Peg Right: 33 sec Left: 55 sec In-Hand Manipulation Finger to Palm Translation: Moderate - Right and Moderate - Left Palm to Finger Translation: Moderate - Right and Moderate - Left Goals Goal:: pt will increase L shoulder flexion strength to 15 pounds in order to maximize I in self care as well as light IADL tasks pt will increase R shoulder flexion strength to 10 pounds in order to maximize I in self care as well as light IADL tasks pt will increase L bicep strength to 15 pounds in order to maximize I in self care tasks as well as light IADL tasks pt will increase R bicep strength to 13 pounds in order to maximize I in self care tasks as well as light IADL tasks pt will improve L hoop driving machine operator helper strength to 35 pounds or more in order to maximize I in light IADL tasks as well as cross stitching pt will improve R hoop driving machine operator helper strength to 30 pounds or more in order to maximize I in light IADL tasks as well as cross stitching Goal:: Pt will improve L hand coordination with improvement in 9 hole test scoring 45 sec or less in order to increase I in IADL as well as cross stitching task pt will demonstrate the ability to manipulation and manage 5/5 buttons of various size in order to maximize I in ADL tasks Goal:: pt will completing hair washing task set up assistance in order to return to PLOF Rehabilitation General Assessment: This 78 year old female presents s/p brain tumor removal x4 mini vera and brain bleed as well as radiation treatment within the past year time frame. Pt presents with instability in standing, decreased overall aerobic capacity to sustained task, decreased UB strength as well as FMC dexterity in hand manipulation tasks impacting ability to perform self care tasks as well as light IADL tasks. Rehabilitation Potential: Good Anticipated Interventions Anticipated Interventions: A/AAROM/PROM, Strengthening, Joint Protection/Energy Conservation, Fine Motor Coord/Antelmo, Neuro Reeducation, ADL Training, Education re assistive Equipment, Education re Diagnosis, Caregiver Training and Home Program Visit Plan Frequency: 2x /Week Duration: 6 Weeks General Plan: strengthening FMC coordination in hand manipulation adaptive tool training joint protection TEXT: Thank you for the opportunity to evaluate your patient. For Medicare and Medicare HMO plans, please review the plan of care and approve it. It will need to be FAXED BACK to us at [phone] for Medicare purposes. Please let me know if there are questions or concerns regarding this plan of care. Physician Signature: (more content not included)... Normal [facility] AST(SGOT)on 11-19-2023 AST [Catalytic activity/Vol] 29 U/L Normal 15-37 [facility] Comment on above: Performed By: #### L 300.4310, L300.3900 #### [facility] [address] [place], [address] Alanine Aminotransferas (SGP T)on 11-19-2023 ALT [Catalytic activity/Vol] 45 U/L Normal 13-56 [facility] Comment on above: Performed By: #### L 300.4310, L300.3900 #### [facility] [address] [place], [address] Basic Metabolic Profile (BMP )on 11-19-2023 BUN/CRE 15.0 RATIO Normal 10-20 [facility] Comment on above: Performed By: #### L 300.4310, L300.3900 #### [facility] [address] [place], [address] CA,Total 9.3 mg/dL Normal 8.5-10.1 [facility] Comment on above: Performed By: #### L 300.4310, L300.3900 #### [facility] [address] [place], [address] Chloride [Moles/Vol] 94 mmol/L Low 98-107 [facility] Comment on above: Performed By: #### L 300.4310, L300.3900 #### [facility] [address] [place], [address] CO2 [Moles/Vol] 29.0 mmol/L Normal 21.0-32.0 [facility] Comment on above: Performed By: #### L 300.4310, L300.3900 #### [facility] [address] [place], [address] Creatinine [Mass/Vol] 0.73 mg/dL Normal 0.55-1.02 [facility] Comment on above: Result Comment: The validity of the calculated GFR GFRAA in patients over 70 years has not been determined. Clinical correlation is essential. Performed By: #### L 300.4310, L300.3900 #### [facility] [facility] [address] [place], [address] EST GFR - AA 99 mL/min Normal >60 [facility] Comment on above: Result Comment: Afri can [place] GFR Calc Performed By: #### L 300.4310, L300.3900 #### [facility] [address] [place], [address] GAP 8 Normal 5-15 [facility] Comment on above: Performed By: #### L 300.4310, [id number] #### [facility] [address] [place], [address] GFR/1.73 sq M.predicted among non-blacks MDRD (S/P/Bld) [Vol rate/Area] 81 mL/min/{1.73_m2} Normal >60 [facility] Comment on above: Result Comment: Non- GFR Calc Performed By: #### L 300.4310, L300.3900 #### [facility] [address] [place], [address] Glucose [Mass/Vol] 114 mg/dL High 74-106 [facility] Comment on above: Result Comment: Fast ing Glucose result from 100 to 125 mg/dL suggests IMPAIRED HOMEOSTASIS per A.D.A. criteria. Performed By: #### L 300.4310, L300.3900 #### [facility] [address] [place], [address] Potassium [Moles/Vol] 3.6 mmol/L Normal 3.5-5.1 [facility] Comment on above: Performed By: #### L 300.4310, [id number] #### [facility] [address] [place], [address] Sodium [Moles/Vol] 131 mmol/L Low 136-145 [facility] Comment on above: Performed By: #### L 300.4310, [id number] #### [facility] [address] [place], [address] Urea nitrogen [Mass/Vol] 11 mg/dL Normal 7-18 [facility] Comment on above: Performed By: #### L 300.4310, [id number] #### [facility] [address] [place], [address] Lipid Profileon 11-19-2023 Cholesterol [Mass/Vol] 158 mg/dL Normal 200 [facility] Comment on above: Result Comment: <200 mg/dL Desirable 200-240 mg/dL Borderline >240 mg/dL High Risk Performed By: #### L 300.4310, [id number] #### [facility] [address] [place], [address] Cholesterol in HDL [Mass/Vol] 67 mg/dL Normal [facility] Comment on above: Result Comment: The drugs N-Acetylcysteine and Metamizole may falsely depress this assay. Reference Range HDL <40 mg/dL Low HDL Cholesterol HDL >or= 60 mg/dL High HDL Cholesterol Performed By: #### L 300.4310, L300.3900 #### [facility] [address] [place], [address] Cholesterol in LDL [Mass/Vol] 78 mg/dL Normal 0-130 [facility] Comment on above: Performed By: #### L 300.4310, [id number] #### [facility] [address] [place], [address] Cholesterol in VLDL [Mass/Vol] 13 mg/dL Normal 5-40 [facility] Comment on above: Performed By: #### L 300.4310, [id number] #### [facility] [address] [place], [address] Triglyceride [Mass/Vol] 67 mg/dL Normal [facility] Comment on above: Result Comment: The drugs N-Acetylcysteine and Metamizole may falsely depress this assay. Serum Triglycerides Reference Interval Normal <150 mg/dL Borderline high 150 - 199 mg/dL High 200 - 499 mg/dL Very High > or = 500 mg/dL Performed By: #### L 300.4310, [id number] #### [facility] [address] [place], [address] Protein+Creatinine Ratio,Uri neon 11-18-2023 PROT:CRE RATIO 463 mg/g CRE High 0-200 [facility] Comment on above: Performed By: #### L 300.4310, [id number] #### [facility] [address] [place], [address] Protein (U) [Mass/Vol] 13.1 mg/dL High <11.9 [facility] Comment on above: Performed By: #### L 300.4310, [id number] #### [facility] [address] [place], [address] UR CREAT 28.30 mg/dL Normal NO RANGE EST. [facility] Comment on above: Performed By: #### L 300.4310, [id number] #### [facility] [address] [place], [address] MRI BRAIN WITH PERFUSIONon 0 08-22-2023 MRI BRAIN WITH PERFUSION ADDENDUM #1 The following should be added to the findings: Stable asymmetric atrophy within the superior cerebellar vermis. This can be seen in the setting of chronic alcohol use, chronic antiseizure therapy, and with certain paraneoplastic disorders. ORIGINAL REPORT EXAM: MRI BRAIN WITH PERFUSION, 08/18/2023 13:53 PM COMPARISON: MRI the brain dated May 19, 2023. CLINICAL INDICATIONS: 77 years Female hx grade 2 meningioma s/p resection and radiation restaging scan.; RELEVANT CLINICAL HISTORY: C70.0:Cancer of cerebral meninges Please include a volumetric T1-post contrast sequence.; TECHNIQUE: A series of multisequence, multiplanar images of the brain are obtained both before and after intravenous administration of gadolinium-based contrast using standard protocol. CONTRAST: Gadopiclenol SOLN 1-25 mL; Route of Administration: Intravenous; Dose: 5.6 mL. FINDINGS: Again seen are postoperative changes related to left frontoparietal craniotomy for meningioma resection. There is a chronic extracerebral fluid collection beneath the craniotomy site which is grossly unchanged in size, and again contains intrinsically T1 hyperintense blood products and other postsurgical changes. There is persistent dural thickening and enhancement around the craniotomy site. No progressive nodular enhancement is seen at the craniotomy site to strongly suggest tumor recurrence. No significant mass effect or midline shift. No acute infarcts are seen on diffusion-weighted imaging. Stable encephalomalacia in the right cerebellum compatible with a remote infarct. Additional areas of stable encephalomalacia along the periphery of the left frontal lobe near the site of surgery which may be related to prior surgery in this region and/or remote infarcts. No hydrocephalus. Trace scattered opacity in the sinuses. Bilateral cataract surgery. Partial opacification of the right mastoid air cells. IMPRESSION: Stable examination since May 19, 2023. Postoperative changes following resection of a left convexity meningioma. No evidence of recurrent tumor. Stable postoperative extracerebral collection at the left frontoparietal craniotomy site. Stable areas of encephalomalacia in the right cerebellum and periphery of the left frontal lobe. Normal [facility] Basophil percentageOrdered B y: Lolly Alejandra on 07-19-2023 Bilirubin [Mass/Vol] 1.00 mg/dL 0.20-1.00 [facility] Comment on above: For patients on eltr ombopag therapy, use of Dimension [place] TBIL is not recommended. Protein [Mass/Vol] 7.2 g/dL 6.4-8.2 [facility] Direct bilirubinOrdered By: Lolly Alejandra on 07-19-2023 Bilirubin.direct [Mass/Vol] 0.32 mg/dL 0.00-0.30 [facility] - Chemistry and C hemistry - challengeOrdered By: Lolly Alejandra on 07-19-2023 ALP [Catalytic activity/Vol] 84 U/L 45-117 [facility] ALT [Catalytic activity/Vol] 29 U/L 13-56 [facility] Globulin (S) [Mass/Vol] 3.0 g/dL 2.2-4.2 [facility] No Panel InformationOrdered By: Lolly Alejandra on 07-19-2023 Free Triiodothyronine (T3) pg/dL 2.1 pg/mL 2.18-3.98 [facility] Serum or plasma thyroid stim ulating hormone (TSH) measurement (units/volume)Ordered By: Lolly Alejandra on 07-19-2023 TSH Qn 2.69 uIU/mL 0.358-3.74 [facility] Thin prep Papanicolaou smear with manual screeningOrdered By: Lolly Alejandra on 07-19-2023 Thin prep Papanicolaou smear with manual screening 4.2 g/dL 3.2-5.0 [facility] Thin prep Papanicolaou smear with manual screening 18 U/L 15-37 [facility] Thin prep Papanicolaou smear with manual screening 1.53 ng/dL 0.76-1.46 [facility] RAD ONC ARIA FRACTION SUMMAR Yon 02-16-2023 Course Elapsed Days 15 [facility] Course First Treatment Date 02/01/2023 12:46 PM [facility] ID [facility] Last Treatment Date 02/16/2023 9:15 AM [facility] Energy [facility]X [facility] D[facility] to [facility] 2200 [facility] Fractions Treated to Date 11 [facility] Plan ID L_Fronto_Temp [facility] Plan Prescribed Dose Per Fraction 200 [facility]Gy [facility] Plan Primary Reference Point 1.A L_FrontoTemp [facility] Plan Total Fractions Prescribed [facility] Plan Total Prescribed Dose 6000 cGy [facility] Reference Point ID 1.A L_FrontoTemp [facility] Treatment Dates 30 [facility] Radiology Study observation (narrative) [facility] RAD ONC ARIA FRACTION SUMMAR Yon 02-08-2023 Course [facility] First Treatment Date 02/01/2023 12:46 PM [facility] Course ID C1 Meningioma [facility] Course Last Treatment Date 02/08/2023 10:18 AM [facility] Energy 6X [facility] Dose Delivered to Date 1000 cGy [facility] Plan Fractions Treated to Date 5 [facility] Plan ID L_Fronto_Temp [facility] Plan Prescribed Dose Per Fraction 200 cGy [facility] Plan Primary Reference Point 1.A L_FrontoTemp [facility] Plan Total Fractions Prescribed 30 [facility] Plan Total Prescribed Dose 6000 cGy [facility] Reference Point ID 1.A L_FrontoTemp [facility] Treatment Dates 30 [facility] Radiology Study observation (narrative) [facility] Absolute lymphocyte countOrd ered By: Monika Venegas on 01-18-2023 Lymphocytes Auto (Unsp spec) [#/Vol] 0.91 10*3/uL 0.83-4.51 [facility] Basophil percentageOrdered B y: Monika Venegas on 01-18-2023 Basophils/100 WBC (Bld) 0.3 % 0-1 [facility] Chloride [Moles/Vol] 98 mmol/L 98-107 [facility] Eosinophils/100 WBC (Bld) 1.5 % 0-5 [facility] Glucose [Mass/Vol] 113 mg/dL 74-106 [facility] Comment on above: Fasting Glucose resu lt from 100 to 125 mg/dL suggests IMPAIRED HOMEOSTASIS per A.D.A. criteria. Neutrophils (Bld) [#/Vol] 6.0 10*3/uL 2.0-7.7 [facility] Neutrophils/100 WBC (Bld) 76.8 % 47-70 [facility] Potassium [Moles/Vol] 4.4 mmol/L 3.5-5.1 [facility] Sodium [Moles/Vol] 132 mmol/L 136-145 [facility] WBC (Bld) [#/Vol] 7.8 10*3/uL 4.4-11.0 [facility] Blood erythrocytes count (nu mber/volume)Ordered By: Monika Venegas on 01-18-2023 RBC (Bld) [#/Vol] 3.40 10*6/uL 4.2-5.4 [facility] Blood hemoglobin measurement (mass/volume)Ordered By: Monika Venegas on 01-18-2023 Hemoglobin (Bld) [Mass/Vol] 10.4 g/dL 12.0-15.0 [facility] Blood lymphocytes/100 leukoc ytesOrdered By: Monika Venegas on 01-18-2023 Lymphocytes/100 WBC (Bld) 11.7 % 19-41 [facility] Blood monocytes/100 leukocyt esOrdered By: Monika Venegas on 01-18-2023 Monocytes/100 WBC (Bld) 9.1 % 0-10 [facility] Blood platelet mean volumeOr dered By: Monika Venegas on 01-18-2023 Platelet mean volume (Bld) [Entitic vol] 10.5 fL 6.2-12.0 [facility] Determination of erythrocyte mean corpuscular volume (MCV)Ordered By: Monika Venegas on 01-18-2023 MCV (RBC) [Entitic vol] 90.6 fL 81-99 [facility] Hematocrit Auto (Bld) [Volum e fraction]Ordered By: Monika Venegas on 01-18-2023 Hematocrit (Bld) [Volume fraction] 30.8 % 37-47 [facility] - Chemistry and C hemistry - challengeOrdered By: Monika Venegas on 01-18-2023 CO2 [Moles/Vol] 30.0 mmol/L 21.0-32.0 [facility] Urea nitrogen/Creatinine [Mass ratio] 22.3 mg/mg 10-20 [facility] - Hematology and Cell countsOrdered By: Monika Venegas on 01-18-2023 Erythrocyte distribution width (RBC) [Entitic vol] 49.6 fL 35.1-43.9 [facility] Erythrocyte distribution width (RBC) [Ratio] 15.1 % 11.6-14.6 [facility] Immature granulocytes/100 WBC (Bld) 0.600 % 0.0-0.9 [facility] Comment on above: IG% - Immature Granu locytes (promyelocytes, myelocytes and metamyelocytes) > 1% indicates that a LEFT SHIFT is Present. MCH (RBC) [Entitic mass] 30.6 pg 27.0-32.0 [facility] Nucleated RBC/100 WBC (Bld) [Ratio] 0 % 0-5 [facility] MCHC Auto (RBC) [Mass/Vol]Or dered By: Monika Venegas on 01-18-2023 MCHC (RBC) [Mass/Vol] 33.8 g/dL 32-36 [facility] No Panel InformationOrdered By: Monika Venegas on 01-18-2023 Estimated GFR (MDRD) Amer 101 mL/min >60 [facility] Comment on above: GFR Calc Estimated GFR (MDRD) Non-Af Amer 83 mL/min >60 [facility] Comment on above: Non- GFR Calc Platelets bldOrdered By: Monika Venegas on 01-18-2023 Platelets (Bld) [#/Vol] 245 10*3/uL 150-450 [facility] Serum or plasma calcium ena urement (mass/volume)Ordered By: Monika Venegas on 01-18-2023 Calcium [Mass/Vol] 9.4 mg/dL 8.5-10.1 [facility] Serum or plasma creatinine m easurement (mass/volume)Ordered By: Monika Venegas on 01-18-2023 Creatinine [Mass/Vol] 0.72 mg/dL 0.55-1.02 [facility] Comment on above: The validity of the calculated GFR & GFRAA in patients over 70 years has not been determined. Clinical correlation is essential. Serum or plasma urea nitroge n measurement (mass/volume)Ordered By: Monika Venegas on 01-18-2023 Urea nitrogen [Mass/Vol] 16 mg/dL 7-18 [facility] Thin prep Papanicolaou smear with manual screeningOrdered By: Monika Venegas on 01-18-2023 Thin prep Papanicolaou smear with manual screening 09 08- [facility] Basophil percentageOrdered B y: Jo-Ann Arais on 12-27-2022 Chloride [Moles/Vol] 106 mmol/L 98-107 [facility] Glucose [Mass/Vol] 123 mg/dL 74-106 [facility] Comment on above: Fasting Glucose resu lt from 100 to 125 mg/dL suggests IMPAIRED HOMEOSTASIS per A.D.A. criteria. Potassium [Moles/Vol] 4.2 mmol/L 3.5-5.1 [facility] Sodium [Moles/Vol] 137 mmol/L 136-145 [facility] - Chemistry and C hemistry - challengeOrdered By: Jo-Ann Arias on 12-27-2022 CO2 [Moles/Vol] 27.0 mmol/L 21.0-32.0 [facility] Magnesium [Mass/Vol] 1.7 mg/dL 1.6-2.6 [facility] Urea nitrogen/Creatinine [Mass ratio] 26.9 mg/mg 10-20 [facility] No Panel InformationOrdered By: Jo-Ann Arias on 12-27-2022 Estimated Creatinine Clearance Calc 39.75 ml/min [facility] Estimated GFR (MDRD) Amer 146 mL/min >60 [facility] Comment on above: GFR Calc Estimated GFR (MDRD) Non-Af Amer 121 mL/min >60 [facility] Comment on above: Non- GFR Calc Serum or plasma calcium ena urement (mass/volume)Ordered By: Jo-Ann Arias on 12-27-2022 Calcium [Mass/Vol] 8.8 mg/dL 8.5-10.1 [facility] Serum or plasma creatinine m easurement (mass/volume)Ordered By: Jo-Ann Hsiehjenny on 12-27-2022 Creatinine [Mass/Vol] 0.52 mg/dL 0.55-1.02 [facility] Comment on above: The validity of the calculated GFR & GFRAA in patients over 70 years has not been determined. Clinical correlation is essential. Serum or plasma urea nitroge n measurement (mass/volume)Ordered By: Jo-Ann Hsiehjenny on 12-27-2022 Urea nitrogen [Mass/Vol] 14 mg/dL 7-18 [facility] Thin prep Papanicolaou smear with manual screeningOrdered By: Jo-Ann Hugo on 12-27-2022 Thin prep Papanicolaou smear with manual screening 4 5-15 [facility] Absolute lymphocyte countOrd ered By: Laura Jacobo on 12-24-2022 Lymphocytes Auto (Unsp spec) [#/Vol] 0.91 10*3/uL 0.83-4.51 [facility] Basophil percentageOrdered B y: Laura Jacobo on 12-24-2022 Basophils/100 WBC (Bld) 0.4 % 0-1 [facility] Bilirubin [Mass/Vol] 0.70 mg/dL 0.20-1.00 [facility] Comment on above: For patients on eltr ombopag therapy, use of Dimension [place] TBIL is not recommended. Chloride [Moles/Vol] 109 mmol/L 98-107 [facility] Eosinophils/100 WBC (Bld) 0.7 % 0-5 [facility] Glucose [Mass/Vol] 159 mg/dL 74-106 [facility] Comment on above: Fasting Glucose resu lt greater than or equal to 126 mg/dL suggests DIABETES MELLITUS per A.D.A. criteria. Neutrophils (Bld) [#/Vol] 3.9 10*3/uL 2.0-7.7 [facility] Neutrophils/100 WBC (Bld) 67.6 % 47-70 [facility] Potassium [Moles/Vol] 4.2 mmol/L 3.5-5.1 [facility] Protein [Mass/Vol] 5.6 g/dL 6.4-8.2 [facility] Sodium [Moles/Vol] 138 mmol/L 136-145 [facility] WBC (Bld) [#/Vol] 5.7 10*3/uL 4.4-11.0 [facility] Blood erythrocytes count (nu mber/volume)Ordered By: Laura Jacobo on 12-24-2022 RBC (Bld) [#/Vol] 3.29 10*6/uL 4.2-5.4 [facility] Blood hemoglobin measurement (mass/volume)Ordered By: Laura Jacobo on 12-24-2022 Hemoglobin (Bld) [Mass/Vol] 9.7 g/dL 12.0-15.0 [facility] Blood lymphocytes/100 leukoc ytesOrdered By: Laura Jacobo on 12-24-2022 Lymphocytes/100 WBC (Bld) 15.9 % 19-41 [facility] Blood monocytes/100 leukocyt esOrdered By: Laura Jacobo on 12-24-2022 Monocytes/100 WBC (Bld) 13.1 % 0-10 [facility] Blood platelet mean volumeOr dered By: Laura Jacobo on 12-24-2022 Platelet mean volume (Bld) [Entitic vol] 9.9 fL 6.2-12.0 [facility] Determination of erythrocyte mean corpuscular volume (MCV)Ordered By: Laura Jacobo on 12-24-2022 MCV (RBC) [Entitic vol] 91.5 fL 81-99 [facility] Hematocrit Auto (Bld) [Volum e fraction]Ordered By: Laura Jacobo on 12-24-2022 Hematocrit (Bld) [Volume fraction] 30.1 % 37-47 [facility] - Chemistry and C hemistry - challengeOrdered By: Laura Jacobo on 12-24-2022 ALP [Catalytic activity/Vol] 121 U/L 45-117 [facility] ALT [Catalytic activity/Vol] 36 U/L 13-56 [facility] CO2 [Moles/Vol] 23.0 mmol/L 21.0-32.0 [facility] Globulin (S) [Mass/Vol] 2.7 g/dL 2.2-4.2 [facility] Urea nitrogen/Creatinine [Mass ratio] 29.0 mg/mg 10-20 [facility] - Hematology and Cell countsOrdered By: Laura Jacobo on 12-24-2022 Erythrocyte distribution width (RBC) [Entitic vol] 50.5 fL 35.1-43.9 [facility] Erythrocyte distribution width (RBC) [Ratio] 15.2 % 11.6-14.6 [facility] Immature granulocytes/100 WBC (Bld) 2.300 % 0.0-0.9 [facility] Comment on above: IG% - Immature Granu locytes (promyelocytes, myelocytes and metamyelocytes) > 1% indicates that a LEFT SHIFT is Present. MCH (RBC) [Entitic mass] 29.5 pg 27.0-32.0 [facility] Nucleated RBC/100 WBC (Bld) [Ratio] 0 % 0-5 [facility] MCHC Auto (RBC) [Mass/Vol]Or dered By: Laura Jacobo on 12-24-2022 MCHC (RBC) [Mass/Vol] 32.2 g/dL 32-36 [facility] No Panel InformationOrdered By: Laura Jacobo on 12-24-2022 Estimated Creatinine Clearance Calc 39.97 ml/min [facility] Estimated GFR (MDRD) Amer 127 mL/min >60 [facility] Comment on above: GFR Calc Estimated GFR (MDRD) Non-Af Amer 105 mL/min >60 [facility] Comment on above: Non- GFR Calc Platelets bldOrdered By: Isabel Jacobo on 12-24-2022 Platelets (Bld) [#/Vol] 246 10*3/uL 150-450 [facility] Serum or plasma albumin ena urement (mass/volume)Ordered By: Laura Jacobo on 12-24-2022 Albumin [Mass/Vol] 2.9 g/dL 3.2-5.0 [facility] Serum or plasma albumin/glob ulin mass ratioOrdered By: Laura Jacobo on 12-24-2022 Albumin/Globulin [Mass ratio] 1.1 {ratio} 0.9-2.4 [facility] Serum or plasma calcium ena urement (mass/volume)Ordered By: Laura Jacobo on 12-24-2022 Calcium [Mass/Vol] 8.8 mg/dL 8.5-10.1 [facility] Serum or plasma creatinine m easurement (mass/volume)Ordered By: Laura Jacobo on 12-24-2022 Creatinine [Mass/Vol] 0.59 mg/dL 0.55-1.02 [facility] Comment on above: The validity of the calculated GFR & GFRAA in patients over 70 years has not been determined. Clinical correlation is essential. Serum or plasma urea nitroge n measurement (mass/volume)Ordered By: Laura Jacobo on 12-24-2022 Urea nitrogen [Mass/Vol] 17 mg/dL 7-18 [facility] Thin prep Papanicolaou smear with manual screeningOrdered By: Laura Jacobo on 12-24-2022 Thin prep Papanicolaou smear with manual screening 14 U/L 15-37 [facility] Thin prep Papanicolaou smear with manual screening 6 5-15 [facility] No Panel InformationOrdered By: Laura Jacobo on 12-23-2022 Thyroid Stimulating Hormone (TSH) 2.34 uIU/mL 0.358-3.74 [facility] Basophil percentageOrdered B y: Jo-Ann Hsiehjenny on 12-20-2022 Sodium [Moles/Vol] 137 mmol/L 136-145 [facility] Basophil percentageOrdered B y: Jo-Ann Hsiehjenny on 12-16-2022 Chloride [Moles/Vol] 103 mmol/L 98-107 [facility] Glucose [Mass/Vol] 127 mg/dL 74-106 [facility] Comment on above: Fasting Glucose resu lt greater than or equal to 126 mg/dL suggests DIABETES MELLITUS per A.D.A. criteria. Potassium [Moles/Vol] 4.2 mmol/L 3.5-5.1 [facility] - Chemistry and C hemistry - challengeOrdered By: Jo-Ann Hugo on 12-16-2022 CO2 [Moles/Vol] 27.0 mmol/L 21.0-32.0 [facility] Magnesium [Mass/Vol] 2.1 mg/dL 1.6-2.6 [facility] Urea nitrogen/Creatinine [Mass ratio] 13.3 mg/mg 10-20 [facility] No Panel InformationOrdered By: Jo-Ann Hugo on 12-16-2022 Estimated Creatinine Clearance Calc 42.34 ml/min [facility] Estimated GFR (MDRD) Amer 144 mL/min >60 [facility] Comment on above: GFR Calc Estimated GFR (MDRD) Non-Af Amer 119 mL/min >60 [facility] Comment on above: Non- GFR Calc Serum or plasma calcium ena urement (mass/volume)Ordered By: Jo-Ann Arias on 12-16-2022 Calcium [Mass/Vol] 8.8 mg/dL 8.5-10.1 [facility] Serum or plasma creatinine m easurement (mass/volume)Ordered By: Jo-Ann Arias on 12-16-2022 Creatinine [Mass/Vol] 0.53 mg/dL 0.55-1.02 [facility] Comment on above: The validity of the calculated GFR & GFRAA in patients over 70 years has not been determined. Clinical correlation is essential. Serum or plasma urea nitroge n measurement (mass/volume)Ordered By: Jo-Ann Arias on 12-16-2022 Urea nitrogen [Mass/Vol] 7 mg/dL 7-18 [facility] Thin prep Papanicolaou smear with manual screeningOrdered By: Jo-Ann Arias on 12-16-2022 Thin prep Papanicolaou smear with manual screening 4 5-15 [facility] Blood hemoglobin measurement (mass/volume)Ordered By: Jo-Ann Arias on 12-13-2022 Hemoglobin (Bld) [Mass/Vol] 9.8 g/dL 12.0-15.0 [facility] Hematocrit Auto (Bld) [Volum e fraction]Ordered By: Jo-Ann Arias on 12-13-2022 Hematocrit (Bld) [Volume fraction] 29.1 % 37-47 [facility] Glucose Glucometer (BldC) [M ass/Vol]Ordered By: Jo-Ann Arias on 12-10-2022 Glucose [Mass/Vol] 120 mg/dL 74-106 [facility] Comment on above: MANAGEMENT OF PATIEN T CARE PER NURSING PROTOCOL Basophil percentageOrdered B y: Jo-Ann Arias on 12-07-2022 Basophil percentage 3.2 mg/dL 2.5-4.9 [facility] Bilirubin [Mass/Vol] 1.00 mg/dL 0.20-1.00 [facility] Comment on above: For patients on eltr ombopag therapy, use of Dimension [place] TBIL is not recommended. Protein [Mass/Vol] 4.8 g/dL 6.4-8.2 [facility] WBC (Bld) [#/Vol] 10.0 10*3/uL 4.4-11.0 [facility] Blood erythrocytes count (nu mber/volume)Ordered By: Jo-Ann Arias on 12-07-2022 RBC (Bld) [#/Vol] 3.34 10*6/uL 4.2-5.4 [facility] Blood platelet mean volumeOr dered By: Jo-Ann Arias on 12-07-2022 Platelet mean volume (Bld) [Entitic vol] 9.2 fL 6.2-12.0 [facility] Clostridium difficile detect ion by polymerase chain reactionOrdered By: Jo-Ann Arias on 12-07-2022 C. difficile DNA SHAHBAZ+probe Ql (Unsp spec) [facility] Determination of erythrocyte mean corpuscular volume (MCV)Ordered By: Jo-Ann Arias on 12-07-2022 MCV (RBC) [Entitic vol] 88.9 fL 81-99 [facility] Laboratory - Chemistry and C hemistry - challengeOrdered By: Jo-Ann Arias on 12-07-2022 ALP [Catalytic activity/Vol] 74 U/L 45-117 [facility] ALT [Catalytic activity/Vol] 23 U/L 13-56 [facility] Globulin (S) [Mass/Vol] 3.0 g/dL 2.2-4.2 [facility] Laboratory - Hematology and Cell countsOrdered By: Jo-Ann Arias on 12-07-2022 Erythrocyte distribution width (RBC) [Entitic vol] 46.3 fL 35.1-43.9 [facility] Erythrocyte distribution width (RBC) [Ratio] 14.4 % 11.6-14.6 [facility] MCH (RBC) [Entitic mass] 30.2 pg 27.0-32.0 [facility] MCHC Auto (RBC) [Mass/Vol]Or dered By: Jo-Ann Hsiehjenny on 12-07-2022 MCHC (RBC) [Mass/Vol] 34.0 g/dL 32-36 [facility] Platelets bldOrdered By: Alyssa Arias on 12-07-2022 Platelets (Bld) [#/Vol] 229 10*3/uL 150-450 [facility] Serum or plasma albumin ena urement (mass/volume)Ordered By: Jo-Ann Hugo on 12-07-2022 Albumin [Mass/Vol] 1.8 g/dL 3.2-5.0 [facility] Serum or plasma albumin/glob ulin mass ratioOrdered By: Jo-Ann Hsiehjenny on 12-07-2022 Albumin/Globulin [Mass ratio] 0.6 {ratio} 0.9-2.4 [facility] Stool Clostridium difficile detectionOrdered By: Jo-Ann Hugo on 12-07-2022 C. difficile Ql (Stl) [facility] Thin prep Papanicolaou smear with manual screeningOrdered By: Jo-Ann Hugo on 12-07-2022 Thin prep Papanicolaou smear with manual screening 16 U/L 15-37 [facility] Absolute lymphocyte counton 11-09-2022 Lymphocytes Auto (Unsp spec) [#/Vol] 1.41 10*3/uL 0.83-4.51 [facility] Basophil percentageon 2022 Basophils/100 WBC (Bld) 0.4 % 0-1 [facility] Chloride [Moles/Vol] 100 mmol/L 98-107 [facility] Eosinophils/100 WBC (Bld) 1.0 % 0-5 [facility] Glucose [Mass/Vol] 108 mg/dL 74-106 [facility] Comment on above: Fasting Glucose resu lt from 100 to 125 mg/dL suggests IMPAIRED HOMEOSTASIS per A.D.A. criteria. Neutrophils (Bld) [#/Vol] 6.1 10*3/uL 2.0-7.7 [facility] Neutrophils/100 WBC (Bld) 72.5 % 47-70 [facility] Potassium [Moles/Vol] 3.8 mmol/L 3.5-5.1 [facility] Sodium [Moles/Vol] 133 mmol/L 136-145 [facility] WBC (Bld) [#/Vol] 8.3 10*3/uL 4.4-11.0 [facility] Blood erythrocytes count (nu mber/volume)on 11-09-2022 RBC (Bld) [#/Vol] 3.93 10*6/uL 4.2-5.4 [facility] Blood hemoglobin measurement (mass/volume)on 11-09-2022 Hemoglobin (Bld) [Mass/Vol] 12.2 g/dL 12.0-15.0 [facility] Blood lymphocytes/100 leukoc yteson 11-09-2022 Lymphocytes/100 WBC (Bld) 16.9 % 19-41 [facility] Blood monocytes/100 leukocyt eson 11-09-2022 Monocytes/100 WBC (Bld) 8.8 % 0-10 [facility] Blood platelet mean volumeon 11-09-2022 Platelet mean volume (Bld) [Entitic vol] 9.8 fL 6.2-12.0 [facility] Determination of erythrocyte mean corpuscular volume (MCV)on 11-09-2022 MCV (RBC) [Entitic vol] 88.3 fL 81-99 [facility] Hematocrit Auto (Bld) [Volum e fraction]on 11-09-2022 Hematocrit (Bld) [Volume fraction] 34.7 % 37-47 [facility] INR in Blood by Coagulation assayon 11-09-2022 INR Coag (Bld) [Relative time] 0.9 {INR} [facility] Laboratory - Chemistry and C hemistry - challengeon 11-09-2022 CO2 [Moles/Vol] 27.0 mmol/L 21.0-32.0 [facility] Urea nitrogen/Creatinine [Mass ratio] 21.3 mg/mg 10-20 [facility] Laboratory - Coagulationon 0 11-09-2022 aPTT Coag (Bld) [Time] 29.1 s 24.1-36.2 [facility] PT Coag (PPP) [Time] 12.5 s 11.7-14.9 [facility] Laboratory - Hematology and Cell countson 11-09-2022 Erythrocyte distribution width (RBC) [Entitic vol] 42.7 fL 35.1-43.9 [facility] Erythrocyte distribution width (RBC) [Ratio] 13.2 % 11.6-14.6 [facility] Immature granulocytes/100 WBC (Bld) 0.400 % 0.0-0.9 [facility] Comment on above: IG% - Immature Granu locytes (promyelocytes, myelocytes and metamyelocytes) > 1% indicates that a LEFT SHIFT is Present. MCH (RBC) [Entitic mass] 31.0 pg 27.0-32.0 [facility] Nucleated RBC/100 WBC (Bld) [Ratio] 0 % 0-5 [facility] MCHC Auto (RBC) [Mass/Vol]on 11-09-2022 MCHC (RBC) [Mass/Vol] 35.2 g/dL 32-36 [facility] No Panel Informationon 11-09 Estimated GFR (MDRD) Amer 103 mL/min >60 [facility] Comment on above: GFR Calc Estimated GFR (MDRD) Non-Af Amer 85 mL/min >60 [facility] Comment on above: Non- GFR Calc Platelets bldon 11-09-2022 Platelets (Bld) [#/Vol] 272 10*3/uL 150-450 [facility] Serum or plasma calcium ena urement (mass/volume)on 11-09-2022 Calcium [Mass/Vol] 9.3 mg/dL 8.5-10.1 [facility] Serum or plasma creatinine m easurement (mass/volume)on 11-09-2022 Creatinine [Mass/Vol] 0.70 mg/dL 0.55-1.02 [facility] Comment on above: The validity of the calculated GFR & GFRAA in patients over 70 years has not been determined. Clinical correlation is essential. Serum or plasma urea nitroge n measurement (mass/volume)on 11-09-2022 Urea nitrogen [Mass/Vol] 15 mg/dL 7-18 [facility] Thin prep Papanicolaou smear with manual screeningon 11-09-2022 Thin prep Papanicolaou smear with manual screening 6 5-15 [facility] EXTRA MICROon 10-09-2022 [facility] SCREEN: MRSA/MSSAOrdered By: Patrick Galicia on 05-06-2023 Interpretation and review of laboratory results Normal [facility] Methicillin Resistant S. Aureus By Pcr Negative Negative [facility] Staphylococcus Aureus By Pcr Negative Negative [facility] This test was perfor med using a real time PCR assay. Results should be interpreted in conjunction with other clinical and laboratory findings. A positive result does not necessarily indicate the presence of viable organism. This test should not be used as a test of cure. For E-swab specimens, this test was developed and its performance characteristics determined by the Clinical Microbiology Laboratory at [facility]. It has not been cleared or approved by the FDA.The laboratory is regulated under CLIA as qualified to perform high-complexity testing. This test is used for clinical purposes. It should not be regarded as investigational or for research. [facility] CBC AND ELECTRONIC DIFFon Basophils (Bld) [#/Vol] 0.05 10*3/uL 0.00 - 0.15 K/uL [facility] Basophils/100 WBC (Bld) 0.5 % [facility] Differential cell count method Nom (Bld) Electronic Differential [facility] Eosinophils (Bld) [#/Vol] 0.08 10*3/uL 0.00 - 0.42 K/uL [facility] Eosinophils/100 WBC (Bld) 0.8 % [facility] Erythrocyte distribution width (RBC) [Ratio] 12.9 % 10.8 - 14.9 % [facility] Hematocrit (Bld) [Volume fraction] 38.0 % 34.9 - 44.3 % [facility] Hemoglobin (Bld) [Mass/Vol] 13.0 g/dL 11.4 - 15.2 g/dL [facility] Immature granulocytes (Bld) [#/Vol] 0.05 10*3/uL NINF - 0.08 K/uL [facility] Immature granulocytes/100 WBC (Bld) 0.5 % [facility] Interpretation and review of laboratory results Abnormal [facility] Lymphocytes (Bld) [#/Vol] 1.34 10*3/uL 1.16 - 3.51 K/uL [facility] Lymphocytes/100 WBC (Bld) 13.4 % [facility] MCH (RBC) [Entitic mass] 29.5 pg 25.9 - 33.9 pg [facility] MCHC (RBC) [Mass/Vol] 34.2 g/dL 31.4 - 35.9 g/dL [facility] MCV (RBC) [Entitic vol] 86.2 fL 79.6 - 97.7 fL [facility] Monocytes (Bld) [#/Vol] 0.76 10*3/uL 0.22 - 0.87 K/uL [facility] Monocytes/100 WBC (Bld) 7.6 % [facility] Neutrophils (Bld) [#/Vol] 7.74 10*3/uL High 1.64 - 7.28 K/uL [facility] Nucleated RBC/100 WBC (Bld) [Ratio] 0.0 % NINF [facility] Platelet mean volume (Bld) [Entitic vol] 10.3 fL 8.5 - 12.2 fL [facility] Platelets (Bld) [#/Vol] 280 10*3/uL 150 - 393 K/uL [facility] RBC (Bld) [#/Vol] 4.41 10*6/uL [facility] Segmented neutrophils/100 WBC (Bld) 77.2 % [facility] WBC (Bld) [#/Vol] 10.02 10*3/uL 3.99 - 11 .19 K/uL [facility] CHEM 7 (LYTES,BUN,CREA,GLUC) on 10-08-2022 Anion gap [Moles/Vol] 11 mmol/L 7 - 17 mmol/L [facility] Chloride [Moles/Vol] 93 mmol/L Low 98 - 10 8 mmol/L [facility] CO2 [Moles/Vol] 28 mmol/L 21 - 31 mmol/L [facility] Creatinine [Mass/Vol] 0.72 mg/dL 0.50 - 1.20 mg/dL [facility] GFR/1.73 sq M.predicted CKD-EPI (S/P/Bld) [Vol rate/Area] 86 - PINF [facility] Comment on above: Reported eGFR is bas ed on the CKD-EPI 2020 equation using creatinine, age, and sex. Glucose [Mass/Vol] 106 mg/dL High 70 - 99 mg/dL [facility] Interpretation and review of laboratory results Abnormal [facility] Osmolality Calc [Osmolality] 272 Low [facility] Potassium [Moles/Vol] 4.3 mmol/L 3.5 - 5.0 mmol/L [facility] Sodium [Moles/Vol] 128 mmol/L Low 135 - 145 mmol/L [facility] Urea nitrogen [Mass/Vol] 15 mg/dL 7 - 25 mg/dL [facility] Urea nitrogen/Creatinine [Mass ratio] 21 mg/mg [facility] EXTRA LIGHT BLUE TOP DOUBLE SPINon 10-08-2022 Dummy LRR - Route to Double Spin Received [facility] PREPARE TO TRANSFUSE OR RED BLOOD CELLSon 10-08-2022 [facility] PROTIME-INRon 10-08-2022 INR Coag (Bld) [Relative time] 1.0 {INR} 0.9 - 1.1 [facility] Interpretation and review of laboratory results Normal [facility] PT Coag (PPP) [Time] 13.[address] [facility] PTT W/MIXING STUDY PERF ONLY Ordered By: Adia Ross on 10-08-2022 aPTT Coag (PPP) [Time] 28.7 s OS [facility] PTT Mixing Study With Normal Plasma Not Indicated [facility] TYPE AND SCREEN - PREADMISSI ONon 10-08-2022 ABO/RH(D) TYPE AB NEG [facility] URINALYSIS REFLEX TO CULTURE PERFORMABLEOrdered By: Paula Dixon on 10-08-2022 Appearance (U) Clear Clear [facility] Bacteria LM Ql (Urine sed) TRACE Abnormal ABSENT [facility] Color (U) Yellow Yellow [facility] Epithelial cells.squamous LM Ql (Urine sed) 1/hpf = 1+ 1/hpf = 1+, 2-5/hpf = 2+, 0/hpf = 0+, ABSENT U [facility] Glucose Test strip (U) [Mass/Vol] Negative Negative [facility] Interpretation and review of laboratory results Abnormal [facility] Ketones (U) [Mass/Vol] Negative Negative [facility] Leukocyte esterase Test strip Ql (U) Trace Abnormal Negative [facility] Nitrite Ql (U) Negative Negative [facility] pH (U) 7.0 [pH] 5.0 - 7.0 [facility] Protein (U) [Mass/Vol] Negative Negative [facility] RBC (U) [#/Vol] Negative Negative [facility] RBC LM.HPF (Urine sed) [#/Area] 0-2 [facility] Specific gravity (U) [Rel density] 1.015 1.001 - PINF [facility] Urobilinogen (U) [Mass/Vol] 0.2 E.U./dL 0.2 E.U/dL, 1.0 E.U/dL [facility] WBC LM.HPF (Urine sed) [#/Area] 0-[address] [facility] XR Chest PA and Lateralon IMPRESSION: No acute cardiopulmonary disease OLOGY EXAM: XR CHEST PA AN D LATERAL, 10/08/2022 12:44 PM COMPARISON: No prior studies available for comparison. 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 Pleural Spaces: No pleural effusion. No pneumothorax. Mediastinum and Tammie: Normal Cardiac silhouette and great vessels: Normal heart size. Atherosclerotic calcifications. Chest Wall: Normal RADIOLOGY Abraham Bahena MD - 10/08/2022 EXAM: XR CHEST PA AND LATERAL, 10/08/2022 12:44 PM COMPARISON: No prior studies available for comparison. 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 Pleural Spaces: No pleural effusion. No pneumothorax. Mediastinum and Tammie: Normal Cardiac silhouette and great vessels: Normal heart size. Atherosclerotic calcifications. Chest Wall: Normal IMPRESSION IMPRESSION: No acute cardiopulmonary disease [facility] Radiology Study observation (narrative) [facility] XR Chest PA and LateralOrder ed By: Abraham Bahena on 10-08-2022 [facility] Work Phone: CT Cheston 10-06-2022 IMPRESSION: Agree wi th outside interpretation. OLOGY EXAM: CT CHEST (INTERPRETATION - OUTSIDE IMAGE), 10/04/2022 08:18 AM DATE- OUTSIDE STUDY PERFORMED: September 30, 2022 COMPARISON: No prior studies available for comparison. CLINICAL INDICATIONS: Reason for Exam:->patient with a large skull/brain mass, please over-read CTs for any other sides of potential primary malignancy; Abdomen pelvis is also included but I am unable to link it to the separate order M89.8X8:Skull mass DISCLAIMER: This is an interpretation of images obtained at an outside imaging facility. This report refers only to the anatomic area or body part in the study description, as requested. Technique: Contiguous axial images were obtained through the chest using intravenous contrast. Reconstructed sagittal and coronal images were performed as well. Findings: Mild motion artifact degrades imaging of the lung bases, otherwise the lungs show no mass, nodule, consolidation or pleural effusion. No pneumothorax. Central airways patent. Normal heart size with no pericardial effusion. Aorta and central pulmonary vasculature are of normal caliber. Mild calcified atherosclerotic disease of the aorta and coronary arteries. No mediastinal or axillary lymphadenopathy. Unremarkable thyroid and esophagus. No destructive bony lesions. Mild degenerative changes of the thoracic spine. CT abdomen dictated separately. RADIOLOGY Ernie Rogel DO - 10/06/2022 EXAM: CT CHEST (INTERPRETATION - OUTSIDE IMAGE), 10/04/2022 08:18 AM DATE- OUTSIDE STUDY PERFORMED: September 30, 2022 COMPARISON: No prior studies available for comparison. CLINICAL INDICATIONS: Reason for Exam:->patient with a large skull/brain mass, please over-read CTs for any other sides of potential primary malignancy; Abdomen pelvis is also included but I am unable to link it to the separate order M89.8X8:Skull mass DISCLAIMER: This is an interpretation of images obtained at an outside imaging facility. This report refers only to the anatomic area or body part in the study description, as requested. Technique: Contiguous axial images were obtained through the chest using intravenous contrast. Reconstructed sagittal and coronal images were performed as well. Findings: Mild motion artifact degrades imaging of the lung bases, otherwise the lungs show no mass, nodule, consolidation or pleural effusion. No pneumothorax. Central airways patent. Normal heart size with no pericardial effusion. Aorta and central pulmonary vasculature are of normal caliber. Mild calcified atherosclerotic disease of the aorta and coronary arteries. No mediastinal or axillary lymphadenopathy. Unremarkable thyroid and esophagus. No destructive bony lesions. Mild degenerative changes of the thoracic spine. CT abdomen dictated separately. IMPRESSION IMPRESSION: Agree with outside interpretation. [facility] CT ChestOrdered By: Ernie Coburn on 10-06-2022 [facility] Work Phone: CT Abdomen and Pelvison Outside Imaging Stud y for Support of Clinical Care This study was sent from an outside facility to [facility] for support of clinical care of the patient within the [facility] system. [facility] CT Cheston 10-04-2022 Radiology Study observation (narrative) [facility] Basophil percentageOrdered B y: Dr. Venegas on 09-21-2022 Chloride [Moles/Vol] 101 mmol/L 98-107 [facility] Cholesterol [Mass/Vol] 164 mg/dL <200 [facility] Comment on above: <200 mg/dL Desirable 200-240 mg/dL Borderline >240 mg/dL High Risk Glucose [Mass/Vol] 107 mg/dL 74-106 [facility] Comment on above: Fasting Glucose resu lt from 100 to 125 mg/dL suggests IMPAIRED HOMEOSTASIS per A.D.A. criteria. Potassium [Moles/Vol] 3.7 mmol/L 3.5-5.1 [facility] Sodium [Moles/Vol] 132 mmol/L 136-145 [facility] Triglyceride [Mass/Vol] 97 mg/dL <199 [facility] Comment on above: The drugs N-Acetylcy steine and Metamizole may falsely depress this assay.Serum Triglycerides Reference Interval Normal <150 mg/dL Borderline high 150 - 199 mg/dL High 200 - 499 mg/dL Very High > or = 500 mg/dL Laboratory - Chemistry and C hemistry - challengeOrdered By: Dr. Venegas on 09-21-2022 ALT [Catalytic activity/Vol] 28 U/L 13-56 [facility] CO2 [Moles/Vol] 26.0 mmol/L 21.0-32.0 [facility] Urea nitrogen/Creatinine [Mass ratio] 19.0 mg/mg 10-20 [facility] No Panel InformationOrdered By: Dr. Venegas on 09-21-2022 Estimated GFR (MDRD) Amer 98 mL/min >60 [facility] Comment on above: GFR Calc Estimated GFR (MDRD) Non-Af Amer 81 mL/min >60 [facility] Comment on above: Non- GFR Calc Urine Microalbumin/Creatinine Ratio 21.9 mg/g CRE <30 [facility] Serum or plasma calcium ena urement (mass/volume)Ordered By: Dr. Venegas on 09-21-2022 Calcium [Mass/Vol] 9.3 mg/dL 8.5-10.1 [facility] Serum or plasma cholesterol in HDL measurement (mass/volume)Ordered By: Dr. Venegas on 09-21-2022 Cholesterol in HDL [Mass/Vol] 63 mg/dL >40 [facility] Comment on above: The drugs N-Acetylcy steine and Metamizole may falsely depress this assay. Reference Range HDL <40 mg/dL Low HDL Cholesterol HDL >or= 60 mg/dL High HDL Cholesterol Serum or plasma cholesterol in VLDL measurement (mass/volume)Ordered By: Dr. Venegas on 09-21-2022 Cholesterol in VLDL [Mass/Vol] 19 mg/dL 5-40 [facility] Serum or plasma creatinine m easurement (mass/volume)Ordered By: Dr. Venegas on 09-21-2022 Creatinine [Mass/Vol] 0.74 mg/dL 0.55-1.02 [facility] Comment on above: The validity of the calculated GFR & GFRAA in patients over 70 years has not been determined. Clinical correlation is essential. Serum or plasma low density lipoprotein (LDL) cholesterol measurement (mass/volume)Ordered By: Dr. Venegas on 09-21-2022 Cholesterol in LDL [Mass/Vol] 82 mg/dL 0-130 [facility] Serum or plasma urea nitroge n measurement (mass/volume)Ordered By: Dr. Venegas on 09-21-2022 Urea nitrogen [Mass/Vol] 14 mg/dL 7-18 [facility] Thin prep Papanicolaou smear with manual screeningOrdered By: Dr. Venegas on 09-21-2022 Thin prep Papanicolaou smear with manual screening 18 U/L 15-37 [facility] Thin prep Papanicolaou smear with manual screening 5 5-15 [facility] Thin prep Papanicolaou smear with manual screening 7.6 mg/L NO RANGE EST. [facility] Urine creatinine measurement (mass/volume)Ordered By: Dr. Venegas on 09-21-2022 Creatinine (U) [Mass/Vol] 34.60 mg/dL NO RANGE EST. [facility] Basophil percentageon 2021 Chloride [Moles/Vol] 101 mmol/L 98-107 [facility] Work Phone: Cholesterol [Mass/Vol] 155 mg/dL <200 [facility] Work Phone: Comment on above: <200 mg/dL Desirable 200-240 mg/dL Borderline >240 mg/dL High Risk Glucose [Mass/Vol] 152 mg/dL 74-106 [facility] Work Phone: Comment on above: Fasting Glucose resu lt greater than or equal to 126 mg/dL suggests DIABETES MELLITUS per A.D.A. criteria. Potassium [Moles/Vol] 3.7 mmol/L 3.5-5.1 [facility] Work Phone: Sodium [Moles/Vol] 135 mmol/L 136-145 [facility] Work Phone: [phone] Triglyceride [Mass/Vol] 180 mg/dL <199 [facility] Work Phone: Comment on above: The drugs N-Acetylcy steine and Metamizole may falsely depress this assay.Serum Triglycerides Reference Interval Normal <150 mg/dL Borderline high 150 - 199 mg/dL High 200 - 499 mg/dL Very High > or = 500 mg/dL Laboratory - Chemistry and C hemistry - challengeon 03-23-2022 ALT [Catalytic activity/Vol] 26 U/L 13-56 [facility] Work Phone: CO2 [Moles/Vol] 27.0 mmol/L 21.0-32.0 [facility] Work Phone: [phone] Urea nitrogen/Creatinine [Mass ratio] 23.6 mg/mg 10-20 [facility] Work Phone: No Panel Informationon 03-23 Estimated GFR (MDRD) Amer 79 mL/min >60 [facility] Work Phone: Comment on above: GFR Calc Estimated GFR (MDRD) Non-Af Amer 65 mL/min >60 [facility] Work Phone: [phone] Comment on above: Non- GFR Calc Serum or plasma calcium ena urement (mass/volume)on 03-23-2022 Calcium [Mass/Vol] 9.4 mg/dL 8.5-10.1 [facility] Work Phone: [phone] Serum or plasma cholesterol in HDL measurement (mass/volume)on 03-23-2022 Cholesterol in HDL [Mass/Vol] 53 mg/dL >40 [facility] Work Phone: Comment on above: The drugs N-Acetylcy steine and Metamizole may falsely depress this assay. Reference Range HDL <40 mg/dL Low HDL Cholesterol HDL >or= 60 mg/dL High HDL Cholesterol Serum or plasma cholesterol in VLDL measurement (mass/volume)on 03-23-2022 Cholesterol in VLDL [Mass/Vol] 36 mg/dL 5-40 [facility] Work Phone: Serum or plasma creatinine m easurement (mass/volume)on 03-23-2022 Creatinine [Mass/Vol] 0.89 mg/dL 0.55-1.02 [facility] Work Phone: Comment on above: The validity of the calculated GFR & GFRAA in patients over 70 years has not been determined. Clinical correlation is essential. Serum or plasma low density lipoprotein (LDL) cholesterol measurement (mass/volume)on 03-23-2022 Cholesterol in LDL [Mass/Vol] 66 mg/dL 0-130 [facility] Work Phone: Serum or plasma urea nitroge n measurement (mass/volume)on 03-23-2022 Urea nitrogen [Mass/Vol] 21 mg/dL -18 [facility] Work Phone: Thin prep Papanicolaou smear with manual screeningon 03-23-2022 Thin prep Papanicolaou smear with manual screening 17 U/L 15-37 [facility] Work Phone: [phone] Thin prep Papanicolaou smear with manual screening 7 5-15 [facility] Work Phone: Vital Signs Date Time Vital Sign Value Performing Clinician Facility 09-27-2024 13:05-0400 Diastolic blood pressure 64 mm[Hg] Dr. Monika Venegas MD Work Phone: [facility] 09-27-2024 13:05-0400 Heart rate 51 /min Dr. Monika Venegas MD Work Phone: [facility] 09-27-2024 13:05-0400 Respiratory rate 16 /min Dr. Monika Venegas MD Work Phone: [facility] 09-27-2024 13:05-0400 SaO2% (BldA) [Mass fraction] 98 % Dr. Monika Venegas MD Work Phone: [facility] 09-27-2024 13:05-0400 Systolic blood pressure 180 mm[Hg] Dr. Monika Venegas MD Work Phone: [facility] 09-27-2024 09:20-0400 Body height 142.[address] Monika Venegas MD Work Phone: [facility] 09-27-2024 09:20-0400 Body mass index (BMI) [Ratio] 24.8 kg/m2 Dr. Monika Venegas MD Work Phone: [facility] 09-27-2024 09:20-0400 Body temperature 98 [degF] Dr. Monika Venegas MD Work Phone: [facility] 09-27-2024 09:20-0400 Body weight 50.[address] Monika Venegas MD Work Phone: [facility] 07-11-2024 11:09-0500 Body mass index (BMI) [Ratio] 24.98 kg/m2 Andrew Bueno MD Work Phone: [facility] 07-11-2024 11:09-0500 Body temperature 97.5 [degF] Andrew Bueno MD Work Phone: [facility] 07-11-2024 11:09-0500 Body weight 50.53 kg Andrew Bueno MD Work Phone: [facility] 07-11-2024 11:09-0500 Diastolic blood pressure 70 mm[Hg] Andrew Bueno MD Work Phone: [facility] Comment on above: manual 07-11-2024 11:09-0500 Heart rate 57 /min Andrew Bueno MD Work Phone: [facility] 07-11-2024 11:09-0500 Respiratory rate 16 /min Andrew Bueno MD Work Phone: [facility] 07-11-2024 11:09-0500 SaO2% (BldA) [Mass fraction] 97 % Andrew Bueno MD Work Phone: [facility] 07-11-2024 11:09-0500 Systolic blood pressure 162 mm[Hg] Andrew Bueno MD Work Phone: 6(260)891-253331 [place] [address] Comment on above: manual 03-14-2024 15:48-0400 Body mass index (BMI) [Ratio] 25.18 kg/m2 Andrew Bueno MD Work Phone: 5(592)589-203531 [place] [address] 03-14-2024 15:48-0400 Body temperature 97.5 [degF] Andrew Bueno MD Work Phone: 6(140)299-727431 [place] [address] 03-14-2024 15:48-0400 Body weight 50.94 kg Andrew Bueno MD Work Phone: [facility] 03-14-2024 15:48-0400 Diastolic blood pressure 68 mm[Hg] Andrew Bueno MD Work Phone: [facility] 03-14-2024 15:48-0400 Heart rate 56 /min Andrew Bueno MD Work Phone: 0(614)400-737831 [place] [address] 03-14-2024 15:48-0400 Respiratory rate 16 /min Andrew Bueno MD Work Phone: [facility] 03-14-2024 15:48-0400 SaO2% (BldA) [Mass fraction] 98 % Andrew Bueno MD Work Phone: [facility] 03-14-2024 15:48-0400 Systolic blood pressure 140 mm[Hg] Andrew Bueno MD Work Phone: [facility] 03-14-2024 13:56-0400 Diastolic blood pressure 87 mm[Hg] Andrew Bueno MD Work Phone: [facility] 03-14-2024 13:56-0400 Heart rate 55 /min Andrew Bueno MD Work Phone: [facility] 03-14-2024 13:56-0400 Systolic blood pressure 220 mm[Hg] Andrew Bueno MD Work Phone: [facility] 11-29-2023 15:40-0400 Body mass index (BMI) [Ratio] 26.21 kg/m2 Andrew Bueno MD Work Phone: [facility] 11-29-2023 15:40-0400 Body temperature 97.39 [degF] Andrew Bueno MD Work Phone: 8(202)953-443131 [place] [address] 11-29-2023 15:40-0400 Body weight 53.02 kg Andrew Bueno MD Work Phone: [facility] 11-29-2023 15:40-0400 Diastolic blood pressure 60 mm[Hg] Andrew Bueno MD Work Phone: [facility] 11-29-2023 15:40-0400 Heart rate 56 /min Andrew Bueno MD Work Phone: [facility] 11-29-2023 15:40-0400 Respiratory rate 16 /min Andrew Bueno MD Work Phone: [facility] 11-29-2023 15:40-0400 SaO2% (BldA) [Mass fraction] 98 % Andrew Bueno MD Work Phone: [facility] 11-29-2023 15:40-0400 Systolic blood pressure 128 mm[Hg] Andrew Bueno MD Work Phone: [facility] 11-29-2023 13:38-0400 Diastolic blood pressure 77 mm[Hg] Andrew Bueno MD Work Phone: [facility] 11-29-2023 13:38-0400 Heart rate 58 /min Andrew Bueno MD Work Phone: [facility] 11-29-2023 13:38-0400 Systolic blood pressure 199 mm[Hg] Andrew Bueno MD Work Phone: [facility] 08-18-2023 13:25-0400 Diastolic blood pressure 92 mm[Hg] Kristine Salts AMBULANCE ASSISTANT-[employer] Work Phone: [facility] 08-18-2023 13:25-0400 Heart rate 66 /min Kristine Salts [employer]BULANCE ASSISTANT[employer] Work Phone: [facility] 08-18-2023 13:25-0400 Systolic blood pressure 202 mm[Hg] Kristine Salts AMBULANCE ASSISTANT[employer] Work Phone: [facility] 07-19-2023 13:50-0500 Body height 142.[address] Monika Venegas Work Phone: [facility] 07-19-2023 13:49-0500 Body mass index (BMI) [Ratio] 26.4 kg/m2 Dr. Monika Venegas Work Phone: [facility] 07-19-2023 13:49-0500 Body weight 53.[address] Monika Venegas Work Phone: [facility] 07-19-2023 13:49-0500 Diastolic blood pressure 70 mm[Hg] Dr. Monika Venegas Work Phone: [facility] 07-19-2023 13:49-0500 Heart rate 63 /min Dr. Monika Venegas Work Phone: [facility] 07-19-2023 13:49-0500 Respiratory rate 18 /min Dr. Monika Venegas Work Phone: [facility] 07-19-2023 13:49-0500 SaO2% (BldA) [Mass fraction] 99 % Dr. Monika Venegas Work Phone: [facility] 07-19-2023 13:49-0500 Systolic blood pressure 179 mm[Hg] Dr. Monika Venegas Work Phone: [facility] 05-19-2023 14:01-0500 Body mass index (BMI) [Ratio] 27.89 kg/m2 Andrew Bueno MD Work Phone: [facility] 05-19-2023 14:01-0500 Body temperature 97.2 [degF] Andrew Bueno MD Work Phone: [facility] 05-19-2023 14:01-0500 Body weight 56.43 kg Andrew Bueno MD Work Phone: [facility] 05-19-2023 14:01-0500 Diastolic blood pressure 70 mm[Hg] Andrew Bueno MD Work Phone: [facility] 05-19-2023 14:01-0500 Heart rate 68 /min Andrew Bueno MD Work Phone: [facility] 05-19-2023 14:01-0500 Respiratory rate 16 /min Andrew Bueno MD Work Phone: [facility] 05-19-2023 14:01-0500 SaO2% (BldA) [Mass fraction] 98 % Andrew Bueno MD Work Phone: [facility] 05-19-2023 14:01-0500 Systolic blood pressure 142 mm[Hg] Andrew Bueno MD Work Phone: [facility] 03-15-2023 10:29-0400 Body mass index (BMI) [Ratio] 26.9 kg/m2 Andrew Bueno MD Work Phone: [facility] 03-15-2023 10:29-0400 Body temperature 97.9 [degF] Andrew Bueno MD Work Phone: [facility] 03-15-2023 10:29-0400 Body weight 54.43 kg Andrew Bueno MD Work Phone: [facility] 03-15-2023 10:29-0400 Diastolic blood pressure 68 mm[Hg] Andrew Bueno MD Work Phone: [facility] 03-15-2023 10:29-0400 Heart rate 62 /min Andrew Bueno MD Work Phone: [facility] 03-15-2023 10:29-0400 Respiratory rate 16 /min Andrew Bueno MD Work Phone: [facility] 03-15-2023 10:29-0400 SaO2% (BldA) [Mass fraction] 97 % Andrew Bueno MD Work Phone: [facility] 03-15-2023 10:29-0400 Systolic blood pressure 160 mm[Hg] Andrew Bueno MD Work Phone: [facility] 03-08-2023 10:08-0400 Body mass index (BMI) [Ratio] 27.06 kg/m2 Ameya Singh MD Work Phone: [facility] 03-08-2023 10:08-0400 Body temperature 97.9 [degF] Ameya Singh MD Work Phone: [facility] 03-08-2023 10:08-0400 Body weight 54.75 kg Ameya Singh MD Work Phone: [facility] 03-08-2023 10:08-0400 Diastolic blood pressure 66 mm[Hg] Ameya Singh MD Work Phone: [facility] 03-08-2023 10:08-0400 Heart rate 70 /min Ameya Singh MD Work Phone: [facility] 03-08-2023 10:08-0400 Respiratory rate 16 /min Ameya Singh MD Work Phone: [facility] 03-08-2023 10:08-0400 SaO2% (BldA) [Mass fraction] 98 % Ameya Singh MD Work Phone: [facility] 03-08-2023 10:08-0400 Systolic blood pressure 152 mm[Hg] Ameya Singh MD Work Phone: [facility] 03-01-2023 09:59-0400 Body mass index (BMI) [Ratio] 27.15 kg/m2 Andrew Bueno MD Work Phone: 2(389)089-431931 [place] [address] 03-01-2023 09:59-0400 Body temperature 97.59 [degF] Andrew Bueno MD Work Phone: 9(140)411-536631 [place] [address] 03-01-2023 09:59-0400 Body weight 54.93 kg Andrew Bueno MD Work Phone: [facility] 03-01-2023 09:59-0400 Diastolic blood pressure 62 mm[Hg] Andrew Bueno MD Work Phone: [facility] 03-01-2023 09:59-0400 Heart rate 69 /min Andrew Bueno MD Work Phone: [facility] 03-01-2023 09:59-0400 Respiratory rate 16 /min Andrew Bueno MD Work Phone: 0(457)224-010744 [address] 03-01-2023 09:59-0400 SaO2% (BldA) [Mass fraction] 99 % Andrew Bueno MD Work Phone: [facility] 03-01-2023 09:59-0400 Systolic blood pressure 118 mm[Hg] Andrew Bueno MD Work Phone: [facility] 02-15-2023 09:35-0400 Body mass index (BMI) [Ratio] 26.72 kg/m2 Andrew Bueno MD Work Phone: 4(586)923-451444 [address] 02-15-2023 09:35-0400 Body temperature 97.81 [degF] Andrew Bueno MD Work Phone: 5(349)649-957344 [address] 02-15-2023 09:35-0400 Body weight 54.07 kg Andrew Bueno MD Work Phone: 2(077)871-294444 [address] 02-15-2023 09:35-0400 Diastolic blood pressure 62 mm[Hg] Andrew Bueno MD Work Phone: [facility] 02-15-2023 09:35-0400 Heart rate 66 /min Andrew Bueno MD Work Phone: [facility] 02-15-2023 09:35-0400 Respiratory rate 16 /min Andrew Bueno MD Work Phone: [facility] 02-15-2023 09:35-0400 SaO2% (BldA) [Mass fraction] 97 % Andrew Bueno MD Work Phone: [facility] 02-15-2023 09:35-0400 Systolic blood pressure 148 mm[Hg] Andrew Bueno MD Work Phone: [facility] 02-08-2023 10:31-0400 Body mass index (BMI) [Ratio] 27.33 kg/m2 Andrew Bueno MD Work Phone: [facility] 02-08-2023 10:31-0400 Body temperature 97.7 [degF] Andrew Bueno MD Work Phone: [facility] 02-08-2023 10:31-0400 Body weight 55.29 kg Andrew Bueno MD Work Phone: 4(187)091-928244 [address] 02-08-2023 10:31-0400 Diastolic blood pressure 72 mm[Hg] Andrew Bueno MD Work Phone: 9(421)438-637144 [address] 02-08-2023 10:31-0400 Heart rate 69 /min Andrew Bueno MD Work Phone: 1(330)639-897244 [address] 02-08-2023 10:31-0400 Respiratory rate 16 /min Andrew Bueno MD Work Phone: 8(373)166-540044 [address] 02-08-2023 10:31-0400 SaO2% (BldA) [Mass fraction] 98 % Andrew Bueno MD Work Phone: 2(176)663-256944 [address] 02-08-2023 10:31-0400 Systolic blood pressure 150 mm[Hg] Andrew Bueno MD Work Phone: [facility] 01-19-2023 10:59-0400 Body mass index (BMI) [Ratio] 26.3 kg/m2 Andrew Bueno MD Work Phone: [facility] 01-19-2023 10:59-0400 Body temperature 98.1 [degF] Andrew Bueno MD Work Phone: [facility] 01-19-2023 10:59-0400 Body weight 53.21 kg Andrew Bueno MD Work Phone: [facility] 01-19-2023 10:59-0400 Diastolic blood pressure 68 mm[Hg] Andrew Bueno MD Work Phone: [facility] 08-16-2023 10:59-0400 Heart rate 65 /min Andrew Bueno MD Work Phone: [facility] 01-19-2023 10:59-0400 Respiratory rate 16 /min Andrew Bueno MD Work Phone: [facility] 01-19-2023 10:59-0400 SaO2% (BldA) [Mass fraction] 98 % Andrew Bueno MD Work Phone: [facility] 01-19-2023 10:59-0400 Systolic blood pressure 154 mm[Hg] Andrew Bueno MD Work Phone: [facility] 01-13-2023 13:14-0400 Body height 142.[address] Monika Venegas Work Phone: [facility] 01-13-2023 13:14-0400 Body mass index (BMI) [Ratio] 26.2 kg/m2 Dr. Monika Venegas Work Phone: [facility] 01-13-2023 13:14-0400 Body weight 53.[address] Monika Venegas Work Phone: [facility] 01-13-2023 13:14-0400 Diastolic blood pressure 67 mm[Hg] Dr. Monika Venegas Work Phone: [facility] 01-13-2023 13:14-0400 Heart rate 70 /min Dr. Monika Venegas Work Phone: [facility] 01-13-2023 13:14-0400 SaO2% (BldA) [Mass fraction] 99 % Dr. Monika Venegas Work Phone: [facility] 01-13-2023 13:14-0400 Systolic blood pressure 130 mm[Hg] Dr. Monika Venegas Work Phone: [facility] 01-01-2023 07:46-0400 Body temperature 97.6 [degF] Dr. Monika Venegas Work Phone: [facility] 01-01-2023 07:46-0400 Diastolic blood pressure 43 mm[Hg] Dr. Monika Venegas Work Phone: [facility] 01-01-2023 07:46-0400 Heart rate 71 /min Dr. Monika Venegas Work Phone: [facility] 01-01-2023 07:46-0400 Respiratory rate 16 /min Dr. Monika Venegas Work Phone: 5(368)870-825343 [place] [address] 01-01-2023 07:46-0400 SaO2% (BldA) [Mass fraction] 97 % Dr. Monika Venegas Work Phone: 4(117)952-943143 [place] [address] 01-01-2023 07:46-0400 Systolic blood pressure 118 mm[Hg] Dr. Monika Venegas Work Phone: 6(912)689-250022 [place] [address] 12-31-2022 20:30-0400 Body mass index (BMI) [Ratio] 27.1 kg/m2 Dr. Monika Venegas Work Phone: 9(051)160-525643 [place] [address] 12-31-2022 05:15-04[address] Body weight [address] Monika Venegas Work Phone: 0(642)777-455922 [place] [address] 12-24-2022 15:11-0400 Body weight 55.[address] Monika Venegas Work Phone: 9(613)094-118529 [address] 12-24-2022 13:54-0400 Body temperature 97.7 [degF] Dr. Monika Venegas Work Phone: [facility] 12-24-2022 13:54-0400 Diastolic blood pressure 52 mm[Hg] Dr. Monika Venegas Work Phone: 9(289)310-505443 [place] [address] 12-24-2022 13:54-0400 Heart rate 79 /min Dr. Monika Venegas Work Phone: [facility] 12-24-2022 13:54-0400 Respiratory rate 18 /min Dr. Monika Venegas Work Phone: [facility] 12-24-2022 13:54-0400 SaO2% (BldA) [Mass fraction] 95 % Dr. Monika Venegas Work Phone: [facility] 12-24-2022 13:54-0400 Systolic blood pressure 115 mm[Hg] Dr. Monika Venegas Work Phone: [facility] 12-23-2022 18:15-0400 Body mass index (BMI) [Ratio] 27.4 kg/m2 Dr. Monika Venegas Work Phone: 1(085)513-370643 [place] [address] 12-23-2022 14:39-0400 Body mass index (BMI) [Ratio] 26.3 kg/m2 Dr. Monika Venegas Work Phone: 3(685)417-495829 [address] 12-23-2022 07:32-0400 Body temperature 97.5 [degF] Dr. Monika Venegas Work Phone: 3(334)702-689329 [address] 12-23-2022 07:32-0400 Diastolic blood pressure 46 mm[Hg] Dr. Monika Venegas Work Phone: 5(472)307-663629 [address] 12-23-2022 07:32-0400 Heart rate 53 /min Dr. Monika Venegas Work Phone: 5(251)498-421529 [address] 12-23-2022 07:32-0400 Respiratory rate 18 /min Dr. Monika Venegas Work Phone: 7(647)759-413729 [address] 12-23-2022 07:32-0400 SaO2% (BldA) [Mass fraction] 97 % Dr. Monika Venegas Work Phone: [facility] 12-23-2022 07:32-0400 Systolic blood pressure 101 mm[Hg] Dr. Monika Venegas Work Phone: 4(278)458-881129 [address] 12-22-2022 14:14-0400 Body height 144.[address] Monika Venegas Work Phone: 9(201)579-587443 [place] [address] 12-22-2022 14:14-0400 Body weight 55.[address] Monika Venegas Work Phone: 4(761)533-970729 [address] 10-09-2022 12:16-0400 Body height 143.5 cm Shaye Weston AMBULANCE ASSISTANT[employer] Work Phone: [facility] 10-09-2022 12:16-0400 Diastolic blood pressure 61 mm[Hg] Shaye Weston AMBULANCE ASSISTANT[employer] Work Phone: [facility] 10-09-2022 12:16-0400 Heart rate 63 /min Shaye Weston AMBULANCE ASSISTANT[employer] Work Phone: [facility] 10-09-2022 12:16-0400 Systolic blood pressure 190 mm[Hg] Shaye Weston AMBULANCE ASSISTANT[employer] Work Phone: [facility] 10-08-2022 11:24-0400 Body height 142.2 cm Qian Randle MD Work Phone: [facility] 10-08-2022 11:24-0400 Body mass index (BMI) [Ratio] 27.31 kg/m2 Qian Randle MD Work Phone: [facility] 10-08-2022 11:24-0400 Body temperature 98.4 [degF] Qian Randle MD Work Phone: [facility] 10-08-2022 11:24-0400 Body weight 55.25 kg Qian Randle MD Work Phone: [facility] 10-08-2022 11:24-0400 Diastolic blood pressure 80 mm[Hg] Qian Randle MD Work Phone: [facility] 10-08-2022 11:24-0400 Heart rate 55 /min Qian Ranlde MD Work Phone: [facility] 10-08-2022 11:24-0400 Respiratory rate 16 /min Qian Randle MD Work Phone: [facility] 10-08-2022 11:24-0400 SaO2% (BldA) [Mass fraction] 99 % Qian Randle MD Work Phone: [facility] 10-08-2022 11:24-0400 Systolic blood pressure 128 mm[Hg] Qian Randle MD Work Phone: [facility] 09-30-2022 11:21-0400 Diastolic blood pressure 72 mm[Hg] Ernie Kincaid MD Work Phone: [facility] Comment on above: manual providers aware 09-30-2022 11:21-0400 Systolic blood pressure 196 mm[Hg] Ernie Kincaid MD Work Phone: [facility] Comment on above: manual providers aware 09-30-2022 11:17-0400 Body height 142.2 cm Ernie Kincaid MD Work Phone: [facility] 09-30-2022 11:17-0400 Body mass index (BMI) [Ratio] 26.97 kg/m2 Ernie Kincaid MD Work Phone: [facility] 09-30-2022 11:17-0400 Body temperature 99.39 [degF] Ernie Kincaid MD Work Phone: [facility] 09-30-2022 11:17-0400 Body weight 54.57 kg Ernie Kincaid MD Work Phone: [facility] 09-30-2022 11:17-0400 Heart rate 62 /min Ernie Kincaid MD Work Phone: [facility] 09-30-2022 11:17-0400 Respiratory rate 16 /min Ernie Kincaid MD Work Phone: [facility] 09-30-2022 11:17-0400 SaO2% (BldA) [Mass fraction] 96 % Ernie Kincaid MD Work Phone: [facility] 09-15-2022 13:37-0400 Body height 142.[address] Monika Venegas Work Phone: [facility] 09-15-2022 13:37-0400 Body mass index (BMI) [Ratio] 27.3 kg/m2 Dr. Monika Venegas Work Phone: [facility] 09-15-2022 13:37-0400 Body temperature 97.4 [degF] Dr. Monika Venegas Work Phone: [facility] 09-15-2022 13:37-0400 Body weight 55.[address] Monika Venegas Work Phone: [facility] 09-15-2022 13:37-0400 Diastolic blood pressure 66 mm[Hg] Dr. Monika Venegas Work Phone: [facility] 09-15-2022 13:37-0400 Heart rate 53 /min Dr. Monika Venegas Work Phone: [facility] 09-15-2022 13:37-0400 Respiratory rate 17 /min Dr. Monika Venegas Work Phone: [facility] 09-15-2022 13:37-0400 SaO2% (BldA) [Mass fraction] 99 % Dr. Monika Venegas Work Phone: [facility] 09-15-2022 13:37-0400 Systolic blood pressure 177 mm[Hg] Dr. Monika Venegas Work Phone: [facility] Encounters Encounter Date Encounter Type Care Provider Facility Start: 09-27-2024 End: 09-27-2024 Emergency department patient visit Dr. Monika Venegas MD Work Phone: -Emergency Department Work Phone: Start: 07-24-2024 End: 07-24-[address] Nati Hudson DO -Laboratory Work Phone: Start: 07-24-2024 End: 07-24-2024 ambulatory Monika Venegas Facility:[facility] Start: 07-11-2024 End: 07-11-2024 Office outpatient visit 25 minutes Andrew Bueno MD Work Phone: Department of Radiation Oncology at [facility] Comment on above: Cancer of cerebral m eninges (Primary Dx); Skin change; Alopecia; S/P radiation therapy Start: 07-11-2024 ambulatory MONIKA S JOLLIFF Facility: [facility] Start: 07-11-2024 End: 07-11-2024 Subsequent hospital visit by physician Kristine ABREU Work Phone: Imaging [facility] Comment on above: Arrived Start: 07-11-2024 ambulatory MONIKA S JOLLIFF Facility: [facility] Start: 06-19-2024 End: 06-19-[address] Nati Hudson DO -Laboratory, Phy Office 3rd Arr Start: 06-19-2024 End: 06-19-2024 ambulatory Monika S Jolliff Facility:[facility] Start: 04-17-2024 End: 04-17-2024 ambulatory Monika S Jolliff Facility:[facility] Start: 03-14-2024 End: 03-14-2024 Office outpatient visit 25 minutes Andrew Bueno MD Work Phone: Department of Radiation Oncology at [facility] Comment on above: Cancer of cerebral m eninges (Primary Dx) Start: 03-14-2024 ambulatory MONIKA S JOLLIFF Facility: [facility] Start: 03-14-2024 End: 03-14-2024 Subsequent hospital visit by physician Andrew Bueno MD Work Phone: Imaging at [facility] Comment on above: Arrived Start: 03-14-2024 ambulatory ANDREW BUENO Facilit y:[facility] Start: 03-14-2024 End: 03-14-2024 Subsequent hospital visit by physician Andrew Bueno MD Work Phone: Imaging [facility] Comment on above: Arrived Start: 03-09-2024 End: 03-09-2024 ambulatory Monika S Jolliff Facility:[facility] Start: 02-24-2024 End: 02-24-2024 ambulatory Monika S Jolliff Facility:[facility] Start: 01-17-2024 End: 01-17-2024 ambulatory Monika S Jolliff Facility:[facility] Start: 01-13-2024 End: 01-13-2024 ambulatory Monika S Jolliff Facility:[facility] Start: 12-16-2023 End: 12-16-2023 ambulatory Monika S Jolliff Facility:[facility] Start: 11-29-2023 End: 11-29-2023 Office outpatient visit 25 minutes Andrew Bueno MD Work Phone: Department of Radiation Oncology at [facility] Comment on above: Cancer of cerebral m eninges (Primary Dx); Neuroendocrine cancer Start: 11-29-2023 ambulatory ANDREW BUENO Facilit y:[facility] Start: 11-29-2023 End: 11-29-2023 Subsequent hospital visit by physician Andrew Bueno MD Work Phone: Imaging at [facility] Comment on above: Arrived Start: 11-18-2023 End: 11-18-2023 ambulatory Monika S Jolliff Facility:[facility] Start: 10-12-2023 End: 10-12-2023 ambulatory Monika S Jolliff Facility:[facility] Start: 08-23-2023 ambulatory ANDREW Nicole BUENO Facilit y:[facility] Start: 08-18-2023 ambulatory MONIKA S JOLLIFF Facility: [facility] Start: 08-18-2023 End: 08-18-2023 Subsequent hospital visit by physician Kristine ABREU Work Phone: Imaging at [facility] Comment on above: Arrived Start: 07-22-[address] Monika hameed Work Phone: [facility] Work Phone: Start: 07-19-2023 End: 07-19-[address] Monika Venegas Work Phone: [facility] Work Phone: Start: 07-19-2023 End: 07-19-[address] Monika Venegas Work Phone: [facility] Work Phone: Start: 05-19-2023 End: 05-19-2023 Office outpatient visit 25 minutes Andrew Bueno MD Work Phone: Department of Radiation Oncology at [facility] Comment on above: Cancer of cerebral m eninges (Primary Dx) Start: 03-16-2023 End: 03-16-2023 Subsequent hospital visit by physician [facility] John [facility]ac 1 Department of Radiation Oncology at [facility] Comment on above: Arrived Start: 03-15-2023 End: 03-28-2023 Patient encounter procedure Andrew Bueno MD Work Phone: Department of Radiation Oncology at [facility] Comment on above: Cancer of cerebral m eninges (Primary Dx) Start: 03-14-2023 End: 03-14-2023 Subsequent hospital visit by physician [facility] 1 Department of Radiation Oncology at [facility] Comment on above: Arrived Start: 03-10-2023 End: 03-10-2023 Subsequent hospital visit by physician [facility] 1 Department of Radiation Oncology at [facility] Comment on above: Arrived Start: 03-08-2023 End: 03-08-2023 Patient encounter procedure Andrew Bueno MD Work Phone: Department of Radiation Oncology at [facility] Comment on above: Neuroendocrine cance r (Primary Dx) Start: 03-04-2023 End: 03-04-2023 Subsequent hospital visit by physician [facility] 1 Department of Radiation Oncology at [facility] Comment on above: Arrived Start: 03-03-2023 End: 03-03-2023 Subsequent [facility] 1 Department of Radiation Oncology at [facility] Comment on above: Arrived Start: 03-02-2023 End: 03-02-2023 Subsequent [facility] Department of Radiation Oncology at [facility] Comment on above: Arrived Start: 03-01-2023 End: 03-29-2023 Patient encounter procedure Andrew Bueno MD Work Phone: Department of Radiation Oncology at [facility] Comment on above: Cancer of cerebral m eninges (Primary Dx) Start: 03-01-2023 End: 03-01-2023 Subsequent hospital visit by physician Tonia John [place] 1 Department of Radiation Oncology at [facility] Comment on above: Arrived Start: 02-28-2023 End: 02-28-2023 Subsequent hospital visit by physician Tonia John [place] 1 Department of Radiation Oncology at [facility] Comment on above: Arrived Start: 02-24-2023 End: 02-24-2023 Subsequent [facility] 1 Department of Radiation Oncology at [facility] Comment on above: Arrived Start: 02-23-2023 End: 02-23-2023 Subsequent [facility] 1 Department of Radiation Oncology at [facility] Comment on above: Arrived Start: 02-18-2023 End: 02-18-2023 Subsequent [facility] [place] 1 Department of Radiation Oncology at [facility] Comment on above: Arrived Start: 02-17-2023 End: 02-17-2023 Subsequent hospital visit by [facility] 1 Department of Radiation Oncology at [facility] Comment on above: Arrived Start: 02-16-2023 End: 02-16-2023 Subsequent hospital visit by [facility] 1 Department of Radiation Oncology at [facility] Comment on above: Arrived Start: 02-15-2023 End: 03-16-2023 Patient encounter procedure Andrew Bueno MD Work Phone: Department of Radiation Oncology at [facility] Comment on above: Cancer of cerebral m eninges (Primary Dx) Start: 02-15-2023 End: 02-15-2023 Subsequent hospital visit [facility] 1 Department of Radiation Oncology at [facility] Comment on above: Arrived Start: 02-14-2023 End: 02-14-2023 Subsequent hospital visit by physician [facility] John [facility] 1 Department of Radiation Oncology at [facility] Comment on above: Arrived Start: 02-11-2023 End: 02-11-2023 Subsequent hospital visit by physician [facility] John [place] 1 Department of Radiation Oncology at [facility] Comment on above: Arrived Start: 02-10-2023 End: 02-10-2023 Subsequent hospital visit by physician Tonia John [facility] 1 Department of Radiation Oncology at [facility] Comment on above: Arrived Start: 02-09-2023 End: 02-09-2023 Subsequent [facility] 1 Department of Radiation Oncology at [facility] Comment on above: Arrived Start: 02-08-2023 End: 03-08-2023 Patient encounter procedure Andrew Bueno MD Work Phone: Department of Radiation Oncology at [facility] Comment on above: Cancer of cerebral m eninges (Primary Dx) Start: 02-08-2023 End: 02-08-2023 Subsequent hospital visit [facility] 1 Department of Radiation Oncology at [facility] Comment on above: Arrived Start: 02-04-2023 End: 02-04-2023 Subsequent hospital visit [facility] [place] 1 Department of Radiation Oncology at [facility] Comment on above: Arrived Start: 02-03-2023 End: 02-03-2023 Subsequent hospital visit by physician [facility] 1 Department of Radiation Oncology at [facility] Comment on above: Arrived Start: 02-02-2023 End: 02-02-2023 [facility] Department of Radiation Oncology at [facility] Comment on above: Arrived Start: 02-01-2023 End: 02-01-2023 Subsequent hospital visit by physician Andrew Bueno MD Work Phone: Department of Radiation Oncology at [facility] Comment on above: Arrived Start: 01-19-2023 End: 01-19-2023 Clinical Support Encounter Andrew Bueno MD Work Phone: Department of Radiation Oncology Comment on above: Neuroendocrine cance r (Primary Dx) Start: 01-19-2023 End: 01-19-2023 Office outpatient new 60 minutes Andrew Bueno MD Work Phone: Department of Radiation Oncology Comment on above: Cancer of cerebral m eninges (Primary Dx); Neuroendocrine cancer Start: 01-19-2023 End: 01-19-2023 Subsequent hospital visit by physician Andrew Bueno MD Work Phone: Department of Radiology Comment on above: Arrived Start: 01-18-2023 End: 01-18-[address] Monika Venegas Work Phone: [facility] Work Phone: Start: 01-18-2023 End: 01-18-[address] Monika Venegas Work Phone: [facility] Start: 01-13-2023 End: 01-13-[address] Monika Venegas Work Phone: [facility] Work Phone: Start: 01-12-2023 End: 01-12-2023 Subsequent hospital visit by physician Andrew Bueno MD Work Phone: [facility] Comment on above: Arrived Start: 01-12-2023 End: 01-12-2023 Subsequent hospital visit by physician Andrew Bueno MD Work Phone: Department of Radiology Comment on above: Arrived Start: 12-29-2022 Non-patient / Non-visit Dr. Joni Venegas Work Phone: [facility] Work Phone: Start: 12-27-2022 Non-patient / Non-visit Dr. Joni Venegas Work Phone: [facility] Work Phone: Start: 12-24-2022 Non-patient / Non-visit Dr. Joni Venegas Work Phone: [facility] Work Phone: Start: 12-23-2022 End: 12-24-2022 Evaluation and management of inpatient Dr. Monika Venegas Work Phone: [facility] Work Phone: Start: 12-23-2022 End: 12-23-2022 Non-patient / Non-visit Dr. Monika Venegas Work Phone: [facility] Work Phone: Start: 12-23-2022 Non-patient / Non-visit Dr. Joni Venegas Work Phone: [facility] Work Phone: Start: 12-21-2022 Non-patient / Non-visit Dr. Joni Venegas Work Phone: [facility] Work Phone: Start: 12-20-2022 Non-patient / Non-visit Dr. Joni Venegas Work Phone: [facility] Work Phone: Start: 12-17-2022 Non-patient / Non-visit Dr. Joni Venegas Work Phone: [facility] Work Phone: Start: 12-16-2022 Non-patient / Non-visit Dr. Joni Venegas Work Phone: [facility] Work Phone: Start: 12-13-2022 Non-patient / Non-visit Dr. Joni Venegas Work Phone: [facility] Work Phone: Start: 12-10-2022 Non-patient / Non-visit Dr. Joni Venegas Work Phone: [facility] Work Phone: Start: 12-08-2022 Non-patient / Non-visit Dr. Joni Venegas Work Phone: [facility] Work Phone: Start: 12-07-2022 Non-patient / Non-visit Dr. Joni Venegas Work Phone: [facility] Work Phone: Start: 12-06-2022 End: 01-01-2023 Evaluation and management of inpatient Dr. Monika Venegas Work Phone: [facility] Work Phone: Start: 11-09-2022 End: 11-09-[address] Monika Venegas Work Phone: [facility] Work Phone: Start: 11-09-2022 End: 11-09-[address] Monika Venegas Work Phone: [facility]Labor[facility] Start: 10-29-2022 End: 10-29-[address] Monika Venegas Work Phone: [facility] Work Phone: Start: 10-29-2022 End: 10-29-[address] Monika Venegas Work Phone: [facility]-Cat Scan, [facility] Start: 10-09-2022 End: 10-09-2022 Subsequent hospital visit by physician Shaye Weston APRN-[employer] Work Phone: Imaging Outpatient [facility] Comment on above: Arrived Start: 10-08-2022 End: 10-08-2022 Subsequent hospital visit by physician Qian Randle MD Work Phone: Imaging [facility] Comment on above: Arrived Start: 10-08-2022 End: 10-08-2022 Office consultation new/estab patient 60 min Qian Randle MD Work Phone: Pre-Procedure Evaluation and Assessment [facility] Comment on above: Preop exam for inter nal medicine (Primary Dx); Skull mass; Essential hypertension; Hyperlipidemia, unspecified hyperlipidemia type Start: 10-08-2022 End: 10-08-2022 Patient encounter status Qian Randle MD Work Phone: [facility] Start: 10-04-2022 End: 10-04-2022 Patient encounter procedure [facility] Outside Imaging Ct Scan So Outside Imaging Second Opinion Start: 09-30-2022 End: 09-30-2022 Subsequent hospital visit by physician Joanne Mitchell APRN-[employer] Work Phone: Outside Imaging Start: 09-30-2022 End: 09-30-[address] Monika Venegas Work Phone: [facility] Work Phone: Start: 09-30-2022 End: 09-30-[address] Monika Venegas Work Phone: [facility] Start: 09-30-2022 End: 09-30-2022 Office outpatient new 45 minutes Ernie Kincaid MD Work Phone: Division of Neuro Surgery at [facility] Comment on above: Skull mass (Primary Dx) Start: 09-28-2022 End: 09-28-[address] Monika Venegas Work Phone: [facility] Start: 09-23-2022 End: 09-23-[address] Monika Venegas Work Phone: [facility] Work Phone: Start: 09-23-2022 End: 09-23-[address] Monika Venegas Work Phone: [facility] Start: 09-21-2022 End: 09-21-[address] Monika Venegas Work Phone: [facility] Work Phone: Start: 09-21-2022 End: 09-21-[address] Monika Venegas Work Phone: [facility] Start: 09-15-2022 End: 09-15-[address] Monika Venegas Work Phone: [facility] Start: 05-14-2022 End: 05-14-2022 ambulatory [facility] Work Phone: Start: 05-14-2022 End: 05-14-2022 Patient encounter procedure [facility]Outpatient Breast Imaging Start: 03-23-2022 End: 03-23-2022 ambulatory [facility] Work Phone: Start: 03-23-2022 End: 03-23-2022 Patient encounter procedure [facility], [place] [facility] Date Procedure Procedure Detail Performing Clinician Start: 09-27-2024 X-ray of chest, PA a nd lateral views Dr. Monika Venegas MD Work Phone: Start: 03-14-[address] attenuation skull base mid-thigh Andrew Bueno MD Work Phone: Start: 02-16-2023 RAD ONC ARIA FRACTIO N SUMMARY Other Other Start: 02-08-2023 RAD ONC ARIA FRACTIO N SUMMARY Other Other Start: 12-24-2022 CT of head without contrast Dr. Monika Venegas Work Phone: Start: 12-20-2022 Plain chest X-ray Dr. Tahir Venegas Work Phone: Start: 12-07-[address] e detection Dr. Monika Venegas Work Phone: Start: 10-29-[address] Monika Venegas Work Phone: Start: 10-29-2022 CT of head without contrast Dr. Monika Venegas Work Phone: Start: 10-08-2022 Antibody screen Qian spangler MD Work Phone: Start: 10-08-2022 Blood typing serolog ic abo Qian Randle MD Work Phone: Start: 10-08-2022 CBC AND ELECTRONIC DIFF Qian Randle MD Work Phone: Start: 10-08-2022 Complete blood count with white cell differential, automated Qian Randle MD Work Phone: Start: 10-08-2022 EXTRA LIGHT BLUE TOP Ran Randle MD Work Phone: Start: 10-08-2022 Prothrombin time Qian Randle MD Work Phone: Start: 10-08-2022 PTT WITH MIXING STUDY K simon Randle MD Work Phone: Start: 10-08-2022 Radiologic exam ches t 2 views Qian Randle MD Work Phone: Start: 10-08-2022 EXTRA MICRO Qian greene MD Work Phone: Start: 10-08-2022 Iadna s aureus ampli fied probe tq Qian Randle MD Work Phone: Start: 10-08-2022 URINALYSIS REFLEX TO CULTURE Qian Randle MD Work Phone: Start: 10-08-2022 PREPARE TO TRANSFUSE OR RED BLOOD CELLS Qian Rnadle MD Work Phone: Start: 10-04-2022 Ct thorax w/contrast material Joanne Mitchell AMBULANCE ASSISTANT-[employer] Work Phone: Start: 09-30-2022 CT Abdomen and Pelvis V ictvanessa Mitchell AMBULANCE ASSISTANT-[employer] Work Phone: Start: 09-30-2022 CT of chest and abdomen Dr. Monika Venegas Work Phone: Start: 09-23-2022 CT of head with contrast Dr. Monika Venegas Work Phone: Start: 05-14-2022 Screening mammography History of radiation therapy S/P radiation therapy Andrew Bueno MD Work Phone: Plan of Treatment Date Care Activity Detail Author Start: 11-14-2024 End: 11-14-2024 Patient encounter procedure Imaging at [facility] Start: 09-27-2024 [facility] Start: 09-27-2024 [facility] Start: 07-11-2024 End: 07-11-2025 MR Brain W contrast IV [facility] Work Phone: Comment on above: 1 Occurrences starti ng 07/11/2024 until 07/11/2024 Expected: 07/11/2024 , Expires: 07/11/2025 Start: 07-11-2024 End: 07-11-2024 Patient encounter procedure Imaging at [facility] Start: 06-14-2024 End: 03-14-2025 MR Brain W contrast IV MRI BRAIN WITH PERFUSION Imaging Routine Cancer of cerebral meninges Expected: 06/14/2024, Expires: 03/14/2025 [facility] Comment on above: Expected: 06/14/2024 , Expires: 03/14/2025 Start: 03-14-2024 End: 03-14-2024 Patient encounter procedure Imaging at [facility] Start: 03-14-2024 End: 03-14-2024 Patient encounter procedure 03/14/2024 9:30 AM EDT Appointment Imaging [facility] [address] [place] [address] Andrew Bueno MD [address] [place] [address] Imaging [facility] Start: 02-05-2024 Influenza vaccination O [facility] Start: 12-07-2023 Potassium [Moles/vol ume] in Serum or Plasma POTASSIUM [facility] Start: 11-29-2023 End: 11-28-2024 MR Brain W contrast IV [facility] Comment on above: 1 Occurrences starti ng 11/29/2023 until 11/29/2023 Expected: 11/29/2023 , Expires: 11/28/2024 Start: 11-29-2023 End: 11-28-2024 PT Skull base to mid-thigh NUC PET NEUROENDOCRINE Imaging Routine Cancer of cerebral meninges Neuroendocrine cancer Expected: 11/29/2023, Expires: 11/28/2024 [facility] Comment on above: Expected: 11/29/2023 , Expires: 11/28/2024 Start: 11-29-2023 End: 11-29-2023 Patient encounter procedure Imaging at [facility] Start: 10-09-2023 Potassium [Moles/vol ume] in Serum or Plasma POTASSIUM [facility] Start: 08-23-2023 End: 08-23-2023 Telemedicine consultation with patient 08/23/2023 5:30 PM EDT Telemedicine Department of Radiation Oncology at [facility] [place] [address] [place] [phone] Andrew Bueno MD [address] [place] [address] Department of Radiation Oncology at [facility] Start: 08-18-2023 End: 05-19-2024 MR Brain W contrast IV [facility] Comment on above: Expected: 08/18/2023 , Expires: 05/19/2024 1 Occurrences starti ng 08/18/2023 until 08/18/2023 Start: 08-18-2023 End: 08-18-2023 Patient encounter procedure Imaging at [facility] Start: 05-19-2023 End: 05-19-2023 Patient encounter procedure Department of Radiation Oncology at [facility] Start: 05-19-2023 End: 05-19-2023 Patient encounter procedure Imaging at [facility] Start: 05-14-2023 Screening for malign ant neoplasm of breast MAMMOGRAM SCREENING DISCUSSION [facility] Start: 03-15-2023 End: 03-15-2024 MR Brain W contrast IV MRI BRAIN WITH PERFUSION Imaging Routine Cancer of cerebral meninges Expected: 03/15/2023, Expires: 03/15/2024 [facility] Comment on above: Expected: 03/15/2023 , Expires: 03/15/2024 Start: 03-15-2023 End: 03-15-2023 Patient encounter procedure 03/15/2023 10:00 AM EDT Office Visit Department of Radiation Oncology at [facility] [place] [address] [address] [facility] [place] [address] Andrew Bueno MD [address] [place] [phone] Department of Radiation Oncology at [facility] Start: 03-08-2023 End: 03-08-2023 Patient encounter procedure Department of Radiation Oncology at [facility] Start: 03-01-2023 End: 03-01-2023 Patient encounter procedure 03/01/2023 10:00 AM EDT Office Visit Department of Radiation Oncology at [place] [address] [address] [place] [phone] Andrew Bueno MD [address] [place] [phone] Department of Radiation Oncology at [facility] Start: 02-22-2023 End: 02-22-2023 Patient encounter procedure 02/22/2023 10:20 AM EDT Office Visit Department of Radiation Oncology at [place] [address] [place] [phone] Andrew Bueno MD [address] [place] [phone] Department of Radiation Oncology at [facility] Start: 02-17-2023 Subsequent hospital visit by physician 02/17/2023 9:09 AM EDT Hospital Encounter Department of Radiation Oncology at [facility] [place] [address] [address] [place] [phone] Arrived Department of Radiation Oncology at [facility] Comment on above: Arrived Start: 02-15-2023 End: 02-15-2023 Patient encounter procedure 02/15/2023 9:40 AM EDT Office Visit Department of Radiation Oncology at [facility] [place] [address] [address] [place] [address], [place] [address] Andrew Bueno MD [address] [place] [address] [phone] Department of Radiation Oncology at [facility] Start: 02-08-2023 End: 02-08-2023 Patient encounter procedure 02/08/2023 10:40 AM EDT Office Visit Department of Radiation Oncology at [place] [address] [address] [place] [address] Andrew Bueno MD [address] [place] [phone] Department of Radiation Oncology at [facility] Start: 02-04-2023 Influenza vaccination INFLUENZA VACC INE (#1) [facility] Start: 02-01-2023 End: 02-01-2023 Patient encounter procedure 02/01/2023 1:00 PM EDT Office Visit Department of Radiation Oncology at [place] [address] [address] [place] [address] Andrew Bueno MD [address] [place] [phone] Department of Radiation Oncology at [facility] Start: 01-19-2023 End: 01-19-2023 Patient encounter procedure Department of Radiation Oncology Start: 01-02-2023 Patient discharge [facility] Start: 01-01-2023 [facility] Start: 12-31-2022 [facility] Start: 12-29-2022 End: 12-30-2022 [facility] Start: 12-29-2022 [facility] Start: 12-27-2022 Referral to service [facility] Start: 12-24-2022 Patient discharge [facility] Start: 12-24-2022 Care planning and pr oblem solving actions [facility] Start: 12-24-2022 Chart related administrative procedure [facility] Start: 12-23-2022 End: 12-24-2022 [facility] Start: 12-23-2022 Care planning and pr oblem solving actions [facility] Start: 12-23-2022 Cardiac monitoring [facility] Start: 12-23-2022 Admission procedure [facility] Start: 12-23-2022 Provision of activit y privileges [facility] Start: 12-23-2022 Assessment of risk o f venous thromboembolism [facility] Start: 12-23-2022 Insertion of cathete r into peripheral vein [facility] Start: 12-23-2022 Measuring intake and output [facility] Start: 12-23-2022 Providing care accor ding to standard [facility] Start: 12-23-2022 Referral to team lead [facility] Start: 12-23-2022 Referral to occupati onal therapist [facility] Start: 12-23-2022 Referral to service [facility] Start: 12-23-2022 Following clinical pathway protocol [facility] Start: 12-23-2022 Patient discharge [facility] Start: 12-23-2022 Patient referral to dietitian [facility] Start: 12-22-2022 [facility] Start: 12-16-2022 [facility] Start: 12-10-2022 Following clinical pathway protocol [facility] Start: 12-09-2022 Application of elast ic bandage [facility] Start: 12-06-2022 Application of intermittent pneumatic compression device [facility] Start: 12-06-2022 [facility] Start: 12-06-2022 Recommendation to continue with treatment [facility] Start: 12-06-2022 Urinary bladder training [facility] Start: 12-06-2022 Wound care [facility] Start: 12-06-2022 Referral to service [facility] Start: 12-06-2022 Admission procedure [facility] Start: 12-06-2022 Patient referral to dietitian [facility] Start: 12-06-2022 Referral to occupati onal therapist [facility] Start: 12-06-2022 Vital signs measurements [facility] Start: 12-06-2022 [facility] Start: 12-06-2022 Speech therapy assessment [facility] Start: 10-28-2022 End: 10-28-2022 Patient encounter procedure 10/28/2022 Office Visit Neurosurgery Neuro Oncology Shaye Weston, AMBULANCE ASSISTANT-[employer] [address] [place] [address] Division of Neuro Surgery at [facility] Start: 10-13-2022 End: 10-13-2022 Craniectomy w/excision tumor/lesion skull EXCISION SKULL LESION TUMOR W/ CRANIECTOMY W/ OR W/O GRAFT Skull lesion 10/13/2022 10:30 AM EDT [facility] Start: 10-13-2022 End: 10-13-2022 Evaluation and management of inpatient CCCT PERIOP Comment on above: Skull lesion EXCISION SKULL LESIO N TUMOR W/ CRANIECTOMY W/ OR W/O GRAFT Start: 10-09-2022 Subsequent hospital visit by physician 10/09/2022 Hospital Encounter Magnetic Resonance Imaging Shaye Weston, AMBULANCE ASSISTANT-[employer] [address] [place] [address] Imaging Outpatient Care [facility] Start: 10-07-2022 End: 10-07-2022 Telemedicine consultation with patient 10/07/2022 Telemedicine Neurosurgery Neuro Oncology Ernie Kincaid MD [address] [place] [address] Division of Neuro Surgery at [facility] Start: 09-30-2022 End: 10-01-2023 CT Abdomen and Pelvis W contrast IV CT ABDOMEN/PELVIS WITH CONTRAST Imaging STAT Skull mass Expected: 09/30/2022, Expires: 10/01/2023 [facility] Comment on above: Expected: 09/30/2022 , Expires: 10/01/2023 Start: 09-30-2022 End: 10-01-2023 CT Chest W contrast IV CT CHEST WITH CONTRAST Imaging STAT Skull mass Expected: 09/30/2022, Expires: 10/01/2023 [facility] Comment on above: Expected: 09/30/2022 , Expires: 10/01/2023 Start: 07-24-2022 COVID-19 VACCINE (2 - Moderna series) COVID-19 VACCINE (2 - Moderna series) [facility] Start: 04-20-2022 COVID-19 VACCINE (2 - Moderna risk series) COVID-19 VACCINE (2 - Moderna risk series) [facility] Start: 11-19-2018 RSV VACCINE (1 - 1-d ose 75+ series) RSV VACCINE (1 - 1-dose 75+ series) [facility] Start: 11-19-2008 Pneumococcal vaccination PNEUM OCOCCAL VACCINE SERIES (1 - PCV) [facility] Start: 2003 RSV VACCINE (1 - 1-d ose 60+ series) RSV VACCINE (1 - 1-dose 60+ series) [facility] Start: 11-19-1993 Zoster vaccine hzv l henrietta for subcutaneous use ZOSTER (SHINGLES) VACCINE (1 of 2) [facility] Start: 11-19-1988 Screening for malign ant neoplasm of colon COLORECTAL CANCER SCREENING DISCUSSION [facility] Start: 11-19-1964 Screening for malign ant neoplasm of cervix CERVICAL CANCER SCREENING DISCUSSION [facility] Start: 11-19-1962 Pneumococcal vaccination PNEUM OCOCCAL VACCINE SERIES (1 of 2 - PCV) [facility] Start: 11-19-1962 Third diphtheria, te tanus and acellular pertussis (DTaP) vaccination TDAP (ADULT) [facility] Start: 11-19-1962 Zoster vaccine hzv l henrietta for subcutaneous use ZOSTER (SHINGLES) VACCINE (1 of 2) [facility] Start: 11-19-1949 Pneumococcal vaccination [facility] Start: 05-21-1944 COVID-19 VACCINE (#1) COVID-19 VACCI NE (#1) [facility] Start: 1945 Hepatitis C screening HEPATITI S C VIRUS SCREENING [facility] Start: 1945 Potassium [Moles/vol ume] in Serum or Plasma POTASSIUM [facility] Start: 1945 Screening for osteoporosis DEXA SCAN DISCUSSION [facility] Start: 1945 Tetanus vaccination TETANUS [facility] Cranioplasty skull d efect 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 Skull mass [facility] Cranioplasty skull d efect 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 Skull [facility] Ecg routine ecg w/le ast 12 lds w/i&r CA ELECTROCARDIOGRAM, COMPLETE CA - OFFICE PERFORMED Routine Preop exam for internal medicine Skull mass Essential hypertension Hyperlipidemia, unspecified hyperlipidemia type Ordered: 10/08/2022 [facility] Comment on above: Ordered: 10/08/2022 Fth/gft free w/direc t closure s/a/l 20 cm/< GRAFT SKIN FULL THICKNESS SCALP (FTSG) Skull mass [facility] Fth/gft free w/direc t closure s/a/l 20 cm/< GRAFT SKIN FULL THICKNESS SCALP (FTSG) Skull mass [facility] End: 10-09-2022 MR Brain [facility] Work Phone: Comment on above: 1 Occurrences starti ng 10/09/2022 until 10/09/2022 End: 01-12-2023 MR Brain W contrast IV [facility] Comment on above: 1 Occurrences starti ng 01/12/2023 until 01/12/2023 End: 03-14-2024 MR Brain W contrast [facility] Comment on above: 1 Occurrences starti ng 03/14/2024 until 03/14/2024 Musc myoq/fscq flap head&neck w/named vasc pedcl FLAP MUSCLE/MYOCUTANEOUS/FASC IOCUTANEOUS HEAD OR NECK Skull mass [facility] Musc myoq/fscq flap head&neck w/named vasc pedcl FLAP MUSCLE/MYOCUTANEOUS/FASC IOCUTANEOUS HEAD OR NECK Skull mass [facility] Patient Education [facility] Your [facility] n [facility] Work Phone: Patient referral [facility] Work Phone: End: 01-12-2023 PT Skull base to mid-thigh [facility] Comment on above: 1 Occurrences starti ng 01/12/2023 until 01/12/2023 RAD ONC SIMULATION RAD ONC SIMUL ATION Imaging Routine Neuroendocrine cancer Cancer of cerebral meninges 01/19/2023 2:34 PM EDT [facility] Troponin T.cardiac [Mass/volume] in Serum or Plasma by High sensitivity method [facility] US Carotid arteries [facility] Immunizations Immunization Date Immunization Notes Care Provider Fa néstor 03-23-2022 influenza virus vaccine, unspecified formulation Andrew Bueno MD Work Phone: [facility] 04-06-2020 Influenza virus vaccine [facility] Payers Date Payer Category Payer Self-pay [id number] 2022 Medicare [id number] 2019 Managed Care (unspecified) MEDICARE SUPPLEMENT [id number] 2019 Unknown GENERIC PAYOR ME DICARE SUPPLEMENT [id number] 2019-Present [phone] [place] [id number] 2019 Unknown [id number] 2008 Medicare [id number] 1945 Unknown [id number] 2..840.1.267755.3.579. 2.594 1943 Unknown [id number] 2.840.1.074078.3.579. 2.594 1943 Unknown [id number] 2.840.1.721645.3.579. 2.594 1943 Unknown [id number] 2.840.1.491597.3.579. 2.594 1943 Unknown [id number] 2.840.1.125510.3.579. 2.594 1943 Unknown [id number] 2.0.1.650724.3.579. 2.594 1943 Unknown [id number] .0.1.779218.3.579. 2.594 1943 Unknown [id number] .0.1.443035.3.579. 2.594 1943 Unknown [id number] .0.1.717932.3.579. 2.594 Medicare MEDICARE HMO OTHER [id number] Private Health Insurance [employer] SR SUPPLEM ENT INS [id number] Unknown [id number] .840.1.228248.3.579. 2.462 Unknown [id number] .840.1.131700.3.579. 2.462 Unknown [id number] 2.840.1.658075.3.579. 2.462 Unknown [id number] 2.840.1.329681.3.579. 2.462 Unknown [id number] 2.840.1.516087.3.579. 2.462 Unknown [id number] 2.16.840.1.618704.3.579. 2.462 Unknown [id number] 2.16840.1.799750.3.579. 2.462 Unknown [id number] 2.16840.1.424360.3.579. 2.462 Unknown [id number] 2.16840.1.381356.3.579. 2.462 Unknown [id number] 2.840.1.471142.3.579. 2.462 Unknown [id number] 2.840.1.201530.3.579. 2.462 Social History Date Type Detail Facility Start: 07-31-2021 End: 07-19-2023 Tobacco smoking status NHIS Unknown if ever smoked [facility] Start: 08-28-2020 Alone [facility] Start: 08-14-2020 Non-smoker [facility] Start: 1945 Sex Assigned At Female [facility] Start: 1945 Sex Assigned At Not on file [facility] Start: 10-04-2022 End: 09-27-2024 Tobacco smoking status NHIS Never smoked tobacco [facility] Start: 10-04-2022 Tobacco use and exposure Smokeless tobacco non-user [facility] Start: 10-04-2022 End: 10-08-2022 Alcohol intake Current drinker of alcohol (finding) [facility] Start: 10-04-2022 Alcohol Comment socially once a year [facility] Start: 01-12-2023 End: 07-12-2024 Alcohol intake Ex-drinker (finding) [facility] Start: 11-18-2022 End: 07-11-2024 History of Social function [facility] Start: 11-18-2022 End: 07-11-2024 Alcohol Use Disorder Identification Test - Consumption [AUDIT-C] [facility] How often to you hav e a drink containing alcohol? Monthly or less [facility] How many standard dr inks containing alcohol do you have on a typical day? 1 or 2 [facility] How often do you hav e 6 or more drinks on 1 occasion? Never [facility] (I/We) worried mark anthony er (my/our) food would run out before (I/we) got money to buy more. Never true [facility] In the past 12 month s, has lack of transportation kept you from medical appointments or from getting medications? No [facility] In the past 12 month s, was there a time when you were not able to pay the mortgage or rent on time? No [facility] Start: 11-09-2022 End: 11-19-2022 Exposure to SARS-CoV-2 (event) Not sure [facility] Start: 07-08-2024 Gender identity Identifies as female gender (finding) [facility] Start: 07-08-2024 Sexual orientation Heterosexual (finding) [facility] Start: 09-27-2022 End: 09-27-2024 Sex Female (finding) [facility] Medical Equipment Procedure Code Equipment Code Equipment Original Text Equipment Identifier Dates Sealant Dural Ad herus Autospray Et - [id number] Start: 11-16-2022 Screw Bone 5mm 1 .8mm Emergency Craniofacial Level One - [id number] Start: 11-24-2022 Clearfit Cranial Implant [id number] Start: 11-25-2022 Clearfit Cranial Implant [id number] Start: 11-16-2022 Patch Dural 3x3i n Durepair Substitute - [id number] Start: 11-16-2022 Screw Bone 5mm 1 .8mm Emergency Craniomaxillofacial Level One - [id number] Start: 11-24-2022 Patch Dural 7x5i n Thk3.5mm Craniomaxillofacial - [id number] Start: 11-24-2022 Mesh Titanium 3m m Regular Cranial Screen Panel 59-048-00-09 - [id number] Start: 11-24-2022 Plate Bone .6mm Curve Craniomaxillofacial 5x2 Hole Low - [id number] Start: 11-24-2022 Plate Bn .6mm Cr nmxf 3x2 Hl Lwpr Crv Seg Ti Nst - [id number] Start: 11-24-2022 Cover [place] Craniofacial .3mm 15mm Ultra Low Profile - [id number] Start: 11-24-2022 Screw Bone 5mm 1 .5mm Craniomaxillofacial Level One - [id number] Start: 11-24-2022 Screw Bone Drill Free Craniomaxillofacial Titanium Level One - [id number] Start: 11-25-2022 Cover Bur Hl Crn mxf .4mm 17mm Matrixneuro Ti Nst Eddie - [id number] Start: 11-24-2022 Cover Bur Hl Crn mxf .4mm 17mm Matrixneuro Ti Nst Eddie - [id number] Start: 11-16-2022 Screw 1.5x4mm 04.503.104.01 - [id number] Start: 11-24-2022 Screw 1.5x4mm 04.503.104.01 - [id number] Start: 11-16-2022 Cover Bur Hl Crn mxf .4mm 15mm Matrixneuro Ti Nst Eddie - [id number] Start: 11-24-2022 Cover Bur Hl Crn mxf .4mm 15mm Matrixneuro Ti Nst Eddie - [id number] Start: 11-16-2022 Cover [place] Hole Craniomaxillofacial .4mm 24mm Matrixneuro - [id number] Start: 11-24-2022 Cover [place] Hole Craniomaxillofacial .4mm 24mm Matrixneuro - [id number] Start: 11-16-2022 Mesh Matrixneuro [id number].6mm Titanium Cranial Rigid - [id number] Start: 11-24-2022 Mesh Matrixneuro [id number].6mm Titanium Cranial Rigid - [id number] Start: 11-16-2022 Goals Date Patient Goal Desired Activity /State Functional Status Date Assessment Result Facility 01-06-2023 Are you deaf, or do you have serious difficulty hearing Yes 01/06/2023 9:52 AM Hansa Patiño, MICAH Yes [facility] 01-06-2023 Are you blind, or do you have serious difficulty seeing, even when wearing glasses No 01/06/2023 9:52 AM Hansa Patiño, RN No [facility] 01-06-2023 Do you have serious difficulty walking or climbing stairs Yes 01/06/2023 9:52 AM Hansa Patiño, MICAH Yes [facility] 01-06-2023 Do you have difficul ty dressing or bathing No 01/06/2023 9:52 AM Hansa Patiño, MICAH No [facility] 01-06-2023 Because of a physica l, mental, or emotional condition, do you have difficulty doing errands alone such as visiting a physician's office or shopping No 01/06/2023 9:52 AM Hansa Patiño, MICAH No [facility] 01-01-2023 Functional status Activity Abili ty Standby Assist [facility] Work Phone: 12-31-2022 Functional status Chair [facility] Work Phone: 12-24-2022 Functional status Ambulates [facility] Work Phone: 12-23-2022 Functional status Ambulates [facility] Work Phone: Mental Status Date Assessment Result Facility 09-27-2024 Cognitive function Awake;Alert;A ppropriate; Follows Commands [facility] Work Phone: 01-06-2023 Because of a physica l, mental, or emotional condition, do you have serious difficulty concentrating, remembering, or making decisions No 01/06/2023 9:52 AM Hansa Patiño, MICAH No [facility] 01-01-2023 Cognitive function Voice/Name [facility] Work Phone: 12-24-2022 Cognitive function Voice/Name [facility] Work Phone: 12-23-2022 Cognitive function Voice/Name [facility] Work Phone: Clinical Notes 09-30-2022 to 09-27-2024 Annelise Rogers, RN - 07/11/2024 11:00 AM Marino Rogers, RN - 07/11/2024 11:00 AM Marino Rogers RN - 07/11/2024 11:00 AM Paul Trejo, AMBULANCE ASSISTANT-AGNIESZKA - 07/11/2024 11:00 AM EST Note Date & Type Note Facility 09-27-2024 Discharge summary [facility] 09-27-2024 Radiology Diagnostic study note [facility] Imaging Services [address] [place] [address] Chest PA and Lateral MR#: [id number] Acct: [id number] Name: SARAH MCGUIRE Rep #: [id number] : 1945 F 78 From: Heri Bradshaw MD PCP: Dr. Monika Venegas MD Status: REG ER Study:Chest PA and Lateral Date of Exam: 09/27/24 Exam# [id number] Ordering Dr: Brte Sadler DO PROCEDURE: CHEST PA AND LATERAL 09/27/2024 REASON FOR EXAM: CHEST PAIN Chest pressure with radiation to the left upper extremity. TECHNIQUE: Frontal and lateral views of the chest. COMPARISON: None available. FINDINGS: Hardware: EKG electrodes are seen. Heart: The heart size is normal. Mediastinum: The mediastinal contour is unremarkable. Atherosclerotic calcification of the aortic arch. Lungs: The lungs are clear. Bones: The bones are unremarkable. RAD/Chest PA and Lateral IMPRESSION: No acute abnormality is seen. Reading Location: [place] [address] CC: Dr. Monika Venegas MD; Dr. Hayden Sadler DO ~ Supply Chain Manager: Signed [facility] 07-11-2024 History of Present illness Narrative Patient here today for follow up with her daughter. Diagnosis: grade 2 meningioma of the scalp. s/p skull lesion biopsy (10/13/22), and s/p left frontal craniectomy and plastics closure on 11/16/22. Postoperative course was complicated by right thalamic/internal capsule stroke, s/p left frontal craniotomy for epidural hematoma evacuation on 11/24/2022. Prior Radiation Treatment: Left frontal/temporal meningioma: 30 fractions in 6000 cGy completed 03/16/2023 NEURO ASSESSMENT Fatigue: grade 2; daughter assist with shower Headache: ongoing frontal headaches a couple times a week; rating 2-3/10, takes tylenol with relief Seizures: denies Falls: denies Weakness: denies Balance difficulty: yes; using walker, taking break from cane and therapy with winter Dizziness/Light headedness: with position change Vision changes: denies; needs glasses readjusted not focusing/reading as well Hearing changes: decreased hearing in left ear; local ENT; has hearing aids Memory changes: denies Speech/Word finding difficulty: rare WF difficulty- stable Numbness/Tingling: left side- stable Nausea/Vomiting: denies PROMIS: 30 (was 28 on 03/14/24) Chemo/immunotherapy: denies Recent Hospitalizations: denies -intermittent left leg edema wears compression stockings; switched from hydrochlorothiazide to spironolactone due to sodium levels decreasing - interested in discussing Rogaine to apply to scalp for hair regrowth within treatment site. Karen Trejo CNP notified Annelise Rogers RN Cognitive Function - Short Form 8a ([employer]) In the past 7 days... My thinking has been slow: 3 : Sometimes (two or three times) It has seemed like my brain has not been working as well as usual: 4 : Rarely (once) I have had to work harder than usual to keep track of what I was doin : Rarely (once) I have had trouble shifting back and forth between different activities that require thinkin : Rarely (once) I have had trouble concentratin : Rarely (once) I have had to work really hard to pay attention, or I would make a mistake: 4 : Rarely (once) I have had trouble forming thoughts: 3 : Sometimes (two or three times) I have had trouble adding or subtracting numbers in my head: 4 : Rarely (once) TOTAL: 30 EQ-5D-3L FORM: MOBILITY: (2) I have some problems in walking about SELF-CARE: (2) I have some problems washing or dressing myself USUAL ACTIVITIES (e.g. work, study, housework, family, or leisure activities): (2) I have some problems with performing my usual activities PAIN / DISCOMFORT: (2) I have moderate pain or discomfort ANXIETY / DEPRESSION: (2) I am moderately anxious or depressed We would like to know how good or bad your health is TODAY This scale is numbered 0 to 100 100 means the best health you can imagine 0 means the worst health you can imagine Sylvain X on the scale to indicate how your health is TODAY Now, please write the number you marked on the scale in the box below. YOUR HEALTH TODAY= 65% RADIATION ONCOLOGY FOLLOW UP NOTE Patient Name: Sarah Mcguire Provider: Dr. Andrew Bueno : 1945 Date: 07/11/2024 DIAGNOSIS: 78 y/o with grade 2 meningioma of the scalp. s/p skull lesion biopsy (10/13/22), and s/p left frontal craniectomy and plastics closure on 11/16/22. Postoperative course was complicated by right thalamic/internal capsule stroke, s/p left frontal craniotomy for epidural hematoma evacuation on 11/24/2022. CURRENT STATUS OF DISEASE: No clinical or radiographic evidence of progression. PRIOR RADIATION TREATMENT: 1) Meningioma 60-75Gy in 30fx completed 03/16/23. INTERVAL SINCE COMPLETION OF TREATMENT: 1 year, 3 months. Interval History: Here with her daughter. Grade 2 fatigue. Ongoing frontal HAs twice weekly. -08/13. Taking tylenol with good relief. Using a walker d/t the weather. Not doing PT currently. Denies falls. Dizziness with position change. Occasional, not constant. Denies vision change, but feels she needs new glasses. Has difficulty with fine print. Left ear with decreased hearing. Follows with local ENT. Has hearing aid. Rare word finding difficulty. PROMIS 30, previous 28. Left sided neuropathy stable. Waxes and wanes, but no worse. Wears compression stockings for edema. Changed her diaurectic d/t Na levels. Continues to have alopecia. Interested in Akbar. Denies any balance difficulty, dysphagia, seizures, focal weakness, numbness/tingling, or bowel/bladder incontinence or retention. Review of Systems: A complete 14 system review was negative except as noted in the HPI above. Allergies: No Known Allergies Medications: Current Outpatient Medications: Spironolactone 25 MG/5ML Suspension, Take 25 mg by mouth daily., Disp: , Rfl: Acetaminophen 325 MG tablet, 1 tablet by Per NG tube route every 4 hours as needed for Mild Pain., Disp: 30 tablet, Rfl: 0 AMIOdarone 200 MG tablet, , Disp: , Rfl: apixaban (Eliquis) 5 MG tablet, , Disp: , Rfl: Atorvastatin 10 MG tablet, Take 1 tablet by mouth at bedtime., Disp: , Rfl: carveDILOL 12.5 MG tablet, 1 tablet by Per NG tube route every 12 hours., Disp: 60 tablet, Rfl: 0 Doxazosin 2 MG tablet, Take 1 tablet by mouth at bedtime., Disp: , Rfl: hydroCHLOROthiazide 25 MG tablet, Take 1 tablet by mouth daily., Disp: , Rfl: Lisinopril 2.5 MG tablet, , Disp: , Rfl: magnesium Chloride (Mag64) [address] tablet ER, , Disp: , Rfl: No current facility-administered medications for this visit. Facility-Administered Medications Ordered in Other Visits: Sodium chloride (PF) 0.9 % injection 1-100 mL, 1-100 mL, Intravenous, Once PRN, Maddison Pickett DO Physical Exam: Performance status: Karnofsky scale 80 (ECOG grade 1) Performs normal activity with effort; some signs & symptoms of disease General: NAD, patient well appearing. HEENT: Oropharynx is clear without erythema or exudates. Neck: no decrease in suppleness, trachea midline. CV: regular rate and rhythm, no audible murmurs, rubs, or gallops Resp: Breathing is non-labored on room air. Lungs clear to auscultation bilaterally. Abdomen: Soft, NT, ND. Bowel sounds normoactive. Extremities: No acute findings. Mild non-pitting BLE. Skin: color, texture and turgor wnl. No rashes and lesions. Focal alopecia, hyperpigmentation of scalp / ? seborrheic keratosis. Neuro: AAO x 3, appropriately interactive, normal affect, speech fluent. Cranial nerves II through XII are intact grossly and symmetrically EXCEPT [place] in the left ear. No focal neurologic deficit. Normal sensation to LT intact bilaterally in the upper and lower extremities. BLE 4/5, BUE 4/5 strength. Imaging and Diagnostic Studies: MRI BRAIN WITH PERFUSION, 07/12/24 The final impression is pending at the time of our visit. TOXICITY: Grade 1 fatigue. Grade 1 alopecia Assessment/Plan: Sarah Mcguire is a 78 y.o. female with grade 2 meningioma of the scalp. s/p skull lesion biopsy (10/13/22), and s/p left frontal craniectomy and plastics closure on 11/16/22. Postoperative course was complicated by right thalamic/internal capsule stroke, s/p left frontal craniotomy for epidural hematoma evacuation on 11/24/2022. Patient is s/p radiation to Meningioma of scalp 60-75Gy in 30fx completed 03/16/23. She presents today with her daughter for routine follow up. Here with her daughter. Feeling well. Not undergoing PT currently so daughter feels that she may be a little weaker in general d/t this. Uses a walker for stability and denies any falls. Having some headaches which are well managed with tylenol. Her left sided neuropathy is stable. Her biggest issue currently is LE swelling which is being managed by her PCP, changes have recently been made to her diuretics which has caused the swelling to wax and wane. Otherwise, she continues to have alopecia from her RT. Has interest in Rogaine, however given hyperpigmentation/possible seborrheic keratosis, will refer to dermatology for further recommendations on alopecia and evaluation of her skin lesions. Patient prefers local consultation therefore copy of referral provided to patient/daughter. We have reviewed the MRI brain completed earlier today. The final impression is pending at the time of our visit. On our review of the imaging, there is no clear evidence of disease progression or recurrence. Recommendations: 1) RTC in 4 months. 2) MRI brain with perfusion in 4 months. 3) Dotatate PET scan in 12 months (last study 03/14/24). 4) Referral to dermatology for alopecia/skin lesions. 5) Contact our office with any new or worsening neurologic symptoms in the interim. All the patient's questions were answered to verbalized satisfaction. We instructed the patient to call with any questions or concerns in the interim. The patient was seen and the plan of care was developed with Dr. Andrew Bueno, attending physician. In total, 30 minutes were spent in association with this visit by the LOIS. LOIS Clarke, [facility] Department of Radiation Oncology Pager #[phone] Radiation Oncology Attending Addendum: I saw and independently examined this patient today on 07/11/2024. I discussed my findings and the therapeutic plan with Radiation Oncology Nurse Practitioner, Karen Trejo CNP . I agree with her history, physical examination, and medical decisions as outlined. I have reviewed the progress note and edited as appropriate. I edited the assessment, physical examination, impression and plan to reflect the patient's current status and treatment plan, which was developed mutually at the time of the visit with the patient. DIAGNOSIS: 77 y/o with grade 2 meningioma of the scalp. s/p skull lesion biopsy (10/13/22), and s/p left frontal craniectomy and plastics closure on 11/16/22. Postoperative course was complicated by right thalamic/internal capsule stroke, s/p left frontal craniotomy for epidural hematoma evacuation on 11/24/2022. CURRENT STATUS OF DISEASE: No clinical or radiographic evidence of progression. (SUV decreased from 9.6 to 4.8) PRIOR RADIATION TREATMENT: 1) Meningioma 60-75Gy in 30fx completed 03/16/23. INTERVAL SINCE COMPLETION OF TREATMENT: 1 year Interval History: Sarah Mcguire is a 78 y.o. female with a WHO grade 2 meningioma s/p subtotal resection and dose escalated 75 Gy in 30 fractions to the tumor. She presents today for routine follow-up with her daughter and mentions grade 2 fatigue, needing assistance from her daughter with showering. Pt reports difficulty with balancing, using a walker and taking a break from a cane and therapy for the winter. Pt reports ongoing frontal headaches a couple times a week, rating 2-3/10. She takes Tylenol with relief. Pt experiences dizziness/light headedness with position change. Pt denies vision changes, but needs glasses readjusted due to difficulty focusing/reading. Pt has decreased hearing in the left ear, uses hearing aids, and sees a local ENT. Pt's rare word finding difficulty is stable. Her left side numbness/tingling is stable. Pt denies seizures, falls, weakness, memory changes, nausea/vomiting, chemo/immunotherapy, and recent hospitalizations. Pt has an intermittent left leg edema and wears compression stockings. She switched from hydrochlorothiazide to spironolactone due to sodium levels decreasing. She is interested in discussing Rogaine to apply to scalp for hair regrowth within treatment site. PROMIS: 30 (was 28 on 03/14/24) Physical exam: Brown patches resembling seborrheic keratosis observed on the scalp . No focal neurologic deficits. The final radiology report has not yet been published, however on our physician review her MRI brain from today, 07/11/24, shows no evidence of recurrence or disease progression. The plan for the patient is to continue with routine MRI surveillance imaging. The exam is stable, imaging is stable. Recommendations: 1) MRI RTC in 4 months 2) MRI brain with perfusion in 4 months. 3) Will refer to dermatology for brown patches of skin on scalp. Thank you for allowing us to participate in the care of this patient. Please do not hesitate to contact me should any questions arise. Documented by Linda, Minna Hawk, for Dr. Andrew Bueno on 07/11/2024 11:31 AM. All medical record entries made by the Linda were at my direction and personally dictated by me, Andrew Bueno MD . I have reviewed and edited the chart and agree that the record accurately reflects my personal performance of the history, physical exam, assessment and plan. I have also personally directed, reviewed, and agree with the discharge instructions. documented in this encounter [facility] 07-11-2024 Instructions Annelise Rogers RN - 07/11/2024 11:00 AM EST It was a pleasure to see you today! We will contact you if there are any concerning findings on the final read of your MRI completed today. Please call our office if you develop any new or worsening symptoms in the interim. [phone]. Please schedule a MRI brain prior to follow up with Dr. Bueno in 4 months. Referral placed for dermatology. documented in this encounter [facility] 03-14-2024 Note EXAM: NUC PET NEUROE NDOCRINE, 03/14/2024 10:34 AM CLINICAL INDICATIONS: grade 2 meningioma eval for progression; , COMPARISON: PET/CT 01/12/23.MRI brain 11/29/23 CT DOSE: DLP: 453 mGy x cm kVp: 120 TECHNIQUE: Approximately 65 minutes following the injection of 2.6 mCi of Gallium-68 Dotatate, the patient was positioned on the Siemens Biograph mCT TOF< PET/CT-64, [employer] imaging unit.. A low resolution non-contrast CT was obtained from the top of the head through the mid-femurs for use in attenuation correction and anatomic correlation. PET emission scans of this anatomic region were acquired shortly thereafter. Axial, sagittal, coronal and maximal intensity projection reconstruction images were presented for interpretation. FINDINGS: Head/Neck: Physiologic activity seen within the pituitary gland, salivary glands, and thyroid. Postsurgical change of left frontal lobe, unchanged. There are persistent 4 foci of tracer avidity along the postsurgical site with similar distribution but decrease in overall intensity of tracer activity. There is a focus in the superior anterior medial aspect with maximum SUV 4.8, previously 9.3. There is a focus along the inferior most craniectomy site within the calvarium with maximum SUV 3.1, previously 7.3. Additional focus along the cranioplasty flap associated with surgical clip has maximum SUV 3.1, previously 5.6. There is a focus of tracer avid subcutaneous stranding/mass in the superior anterior cranioplasty site with maximum SUV 3.8, previously 6.4. Chest: No suspicious tracer avid lung parenchymal lesions or lymphadenopathy. Abdomen/Pelvis: Intense physiologic uptake seen within the spleen and adrenal glands which can obscure potential disease in these structures. Milder physiologic uptake seen within the liver. Musculoskeletal: No suspicious tracer avid osseous foci. IMPRESSION: Persistent 4 foci of tracer avidity along the postsurgical site with similar distribution but decrease in overall intensity of tracer activity in the left frontal craniotomy site and post surgical bed, findings remain indeterminate and could be either postsurgical, although residual/recurrent disease cannot be entirely excluded. [facility] 03-14-2024 History of Present illness Narrative RADIATION ONCOLOGY FOLLOW UP NOTE Patient Name: Sarah Mcguire Provider: Dr. Andrew Bueno : 1945 Date: 03/14/2024 DIAGNOSIS: 78 y/o with grade 2 meningioma of the scalp. s/p skull lesion biopsy (10/13/22), and s/p left frontal craniectomy and plastics closure on 11/16/22. Postoperative course was complicated by right thalamic/internal capsule stroke, s/p left frontal craniotomy for epidural hematoma evacuation on 11/24/2022. CURRENT STATUS OF DISEASE: No clinical or radiographic evidence of progression. (SUV 9.6 to 4.8) PRIOR RADIATION TREATMENT: 1) Meningioma 60-75Gy in 30fx completed 03/16/23. INTERVAL SINCE COMPLETION OF TREATMENT: 1 year Interval History: Sarah Mcguire is an 78 y.o. female with a WHO grade 2 meningioma s/p subtotal resection and dose escalated 75 Gy in 30 fractions to the tumor. She presents today for routine follow-up with her daughter and granddaughter. Patient complains of grade 1 fatigue, balance difficulty, left sided neuropathy, intermittent left leg edema wears compression stockings, and rare word finding difficulty. She also reports PROMIS: 28 (was 28 on 11/29/23) Review of Systems: A complete 14 system review was negative except as noted in the HPI above. Allergies: No Known Allergies Medications: Current Outpatient Medications: Acetaminophen 325 MG tablet, 1 tablet by Per NG tube route every 4 hours as needed for Mild Pain., Disp: 30 tablet, Rfl: 0 AMIOdarone 200 MG tablet, , Disp: , Rfl: apixaban (Eliquis) 5 MG tablet, , Disp: , Rfl: Atorvastatin 10 MG tablet, Take 1 tablet by mouth at bedtime., Disp: , Rfl: carveDILOL 12.5 MG tablet, 1 tablet by Per NG tube route every 12 hours., Disp: 60 tablet, Rfl: 0 Doxazosin 2 MG tablet, Take 1 tablet by mouth at bedtime., Disp: , Rfl: hydroCHLOROthiazide 25 MG tablet, Take 1 tablet by mouth daily., Disp: , Rfl: Lisinopril 2.5 MG tablet, , Disp: , Rfl: magnesium Chloride (Mag64) [address] tablet ER, , Disp: , Rfl: No current facility-administered medications for this visit. Facility-Administered Medications Ordered in Other Visits: Gadopiclenol SOLN 1-25 mL, 1-25 mL, Intravenous, Once, Darnell Moss MD Sodium chloride (PF) 0.9 % injection 1-100 mL, 1-100 mL, Intravenous, Once PRN, Darnell Moss MD Physical Exam: Performance status: Karnofsky scale 80 (ECOG grade 1) Performs normal activity with effort; some signs & symptoms of disease General: NAD, patient well appearing. HEENT: Oropharynx is clear without erythema or exudates. Neck: no decrease in suppleness, trachea midline. Well healed incision on scalp with well approximated skin. Focal alopecia present. CV: regular rate and rhythm, no audible murmurs, rubs, or gallops Resp: Breathing is non-labored on room air. Lungs clear to auscultation bilaterally. Abdomen: Soft, NT, ND. Bowel sounds normoactive. No guarding, no rebound Extremities: No acute findings. Mild non-pitting BLE. Skin: color, texture and turgor wnl. No rashes and lesions. Focal alopecia, hyperpigmentation of scalp. Neuro: AAO x 3, appropriately interactive, normal affect, speech fluent. Cranial nerves II through XII are intact grossly and symmetrically. No focal neurologic deficit. Normal sensation to LT intact bilaterally in the upper and lower extremities. BLE 4/5, BUE 4/5. Imaging and Diagnostic Studies: 03/14/24: MRI Brain: PRELIMINARY: IMPRESSION: Stable posttreatment findings related to meningioma resection. No evidence of recurrent tumor. This result has not been signed. Information might be incomplete. 03/14/24: NUC PET: IMPRESSION: Persistent 4 foci of tracer avidity along the postsurgical site with similar distribution but decrease in overall intensity of tracer activity in the left frontal craniotomy site and post surgical bed, findings remain indeterminate and could be either postsurgical, although residual/recurrent disease cannot be entirely excluded. TOXICITY: Grade 1 fatigue. Grade 1 alopecia and dermatitis. Assessment/Plan: 78 y/o with grade 2 meningioma of the scalp. s/p skull lesion biopsy (10/13/22), and s/p left frontal craniectomy and plastics closure on 11/16/22. Postoperative course was complicated by right thalamic/internal capsule stroke, s/p left frontal craniotomy for epidural hematoma evacuation on 11/24/2022. Patient is s/p radiation to Meningioma of scalp 60-75Gy in 30fx completed 03/16/23. Patient arrives with her daughter and granddaughter for follow up today. Patient reports stable mild headaches on top of her head. Patient denies visual changes, trouble eating or drinking, bowel or bladder issues. She does have some dizziness with position changes. She is now walking with her walker again and restarting PT/OT and hopes to get back to walking with just a cane. The final read of the MRI Brain is not completed at this time, however, upon physician review it appears stable. Dr. Bueno plans to see the patient back with a repeat MRI in 3 months and a neuroendocrine PET scan in 1 months. Recommendations: 1) RTC in 3 months. 2) MRI brain with perfusion in 3 months. 3) Dotatate PET scan in 12 months. 4) Advised pt to consider Rogaine to apply to scalp for hair regrowth within treatment site. All the patient's questions were answered to verbalized satisfaction. We instructed the patient to call with any questions or concerns in the interim. The patient was seen and the plan of care was developed with Dr. Bueno, attending physician. Kristine Blue APRN-[employer], pager [phone] Radiation Oncology Attending Addendum: I saw and independently examined this patient today on 03/14/2024. I discussed my findings and the therapeutic plan with Radiation Oncology Nurse Practitioner, Kristine Blue APRN, CNP. I agree with her history, physical examination, and medical decisions as outlined. I have reviewed the progress note and edited as appropriate. I edited the assessment, physical examination, impression and plan to reflect the patient's current status and treatment plan, which was developed mutually at the time of the visit with the patient. DIAGNOSIS: 77 y/o with grade 2 meningioma of the scalp. s/p skull lesion biopsy (10/13/22), and s/p left frontal craniectomy and plastics closure on 11/16/22. Postoperative course was complicated by right thalamic/internal capsule stroke, s/p left frontal craniotomy for epidural hematoma evacuation on 11/24/2022. CURRENT STATUS OF DISEASE: No clinical or radiographic evidence of progression. (SUV 9.6 to 4.8) PRIOR RADIATION TREATMENT: 1) Meningioma 60-75Gy in 30fx completed 03/16/23. INTERVAL SINCE COMPLETION OF TREATMENT: 1 year Interval History: Sarah Mcguire is a 78 y.o. female with a WHO grade 2 meningioma s/p subtotal resection and dose escalated 75 Gy in 30 fractions to the tumor. She presents today for routine follow-up with her daughter and mentions grade 1 fatigue, balance difficulty, left sided neuropathy, intermittent left leg edema wears compression stockings, and rare word finding difficulty. PROMIS: 28 (was 28 on 11/29/23) Neuro exam, unchanged. I have reviewed the MRI imaging with the patient at the time of the visit. The final radiology report has not yet been published, however on our physician review her MRI brain from 03/14/24 shows no evidence of recurrence or disease progression. The plan for the patient is to continue with routine MRI surveillance imaging. The exam is stable, imaging is stable. Recommendations: 1) RTC in 3 months. 2) MRI brain with perfusion in 3 months. 3) Dotatate PET scan in 12 months. 4) Advised pt to consider Rogaine to apply to scalp for hair regrowth within treatment site. Thank you for allowing us to participate in the care of this patient. Please do not hesitate to contact me should any questions arise. Documented by Danny Mckeon, for Dr. Andrew Bueno on 03/14/2024 4:05 PM. All medical record entries made by the Linda were at my direction and personally dictated by me, Andrew Bueno MD . I have reviewed and edited the chart and agree that the record accurately reflects my personal performance of the history, physical exam, assessment and plan. I have also personally directed, reviewed, and agree with the discharge instructions. Andrew Bueno MD [employer] Department of Radiation Oncology Pager: [phone] Office: [phone] Patient seen independently by provider. Annelise Rogers RN Cognitive Function - Short Form 8a (PROMIS Item Bank) In the past 7 days... My thinking has been slow: 3 : Sometimes (two or three times) It has seemed like my brain has not been working as well as usual: 4 : Rarely (once) I have had to work harder than usual to keep track of what I was doin : Sometimes (two or three times) I have had trouble shifting back and forth between different activities that require thinkin : Sometimes (two or three times) I have had trouble concentratin : Sometimes (two or three times) I have had to work really hard to pay attention, or I would make a mistake: 4 : Rarely (once) I have had trouble forming thoughts: 3 : Sometimes (two or three times) I have had trouble adding or subtracting numbers in my head: 5 : Never TOTAL: 28 EQ-5D-3L FORM: MOBILITY: (2) I have some problems in walking about SELF-CARE: (2) I have some problems washing or dressing myself USUAL ACTIVITIES (e.g. work, study, housework, family, or leisure activities): (2) I have some problems with performing my usual activities PAIN / DISCOMFORT: (1) I have no pain or discomfort ANXIETY / DEPRESSION: (2) I am moderately anxious or depressed We would like to know how good or bad your health is TODAY This scale is numbered 0 to 100 100 means the best health you can imagine 0 means the worst health you can imagine Sylvain X on the scale to indicate how your health is TODAY Now, please write the number you marked on the scale in the box below. YOUR HEALTH TODAY= 75% documented in this encounter [facility] 03-14-2024 Instructions Annelise Rogers RN - 03/14/2024 3:00 PM EDT Please return in 3 month MRI and follow up with Dr. Bueno documented in this encounter [facility] 11-29-2023 History of Present illness Narrative Patient here today for follow up with her daughter. Diagnosis: grade 2 meningioma of the scalp. s/p skull lesion biopsy (10/13/22), and s/p left frontal craniectomy and plastics closure on 11/16/22. Postoperative course was complicated by right thalamic/internal capsule stroke, s/p left frontal craniotomy for epidural hematoma evacuation on 11/24/2022. NEURO ASSESSMENT Fatigue: grade 1 Headache: ongoing slight headache on top of head, occurring daily, rating 2-3/10, takes tylenol with relief Seizures: denies [place]: [place] have foot fully on pavement and lost balance and fell onto butt, did not hit head Weakness: denies Balance difficulty: yes; using walker, and restart PT/OT this week which they will work with transitioning back to cane Dizziness/Light headedness: with position change Vision changes: denies Hearing changes: build up of earwax near left ear drum; local ENT; has hearing aids Memory changes: denies Speech/Word finding difficulty: rare WF difficulty Numbness/Tingling: left side- especially L thigh is worse Nausea/Vomiting: denies PROMIS: 28 (was 31 on 05/19/23) Chemo/immunotherapy: denies Recent Hospitalizations: denies -intermittent left leg edema wears compression stockings Kristine Blue CNP notified Annelise Rogers RN Cognitive Function - Short Form 8a (PROMIS Item Bank) In the past 7 days... My thinking has been slow: 3 : Sometimes (two or three times) It has seemed like my brain has not been working as well as usual: 4 : Rarely (once) I have had to work harder than usual to keep track of what I was doin : Rarely (once) I have had trouble shifting back and forth between different activities that require thinkin : Never I have had trouble concentratin : Rarely (once) I have had to work really hard to pay attention, or I would make a mistake: 4 : Rarely (once) I have had trouble forming thoughts: 3 : Sometimes (two or three times) I have had trouble adding or subtracting numbers in my head: 4 : Rarely (once) TOTAL: 28 EQ-5D-3L FORM: MOBILITY: (2) I have some problems in walking about SELF-CARE: (1) I have no problems with self-care USUAL ACTIVITIES (e.g. work, study, housework, family, or leisure activities): (2) I have some problems with performing my usual activities PAIN / DISCOMFORT: (2) I have moderate pain or discomfort ANXIETY / DEPRESSION: (2) I am moderately anxious or depressed We would like to know how good or bad your health is TODAY This scale is numbered 0 to 100 100 means the best health you can imagine 0 means the worst health you can imagine Sylvain X on the scale to indicate how your health is TODAY Now, please write the number you marked on the scale in the box below. YOUR HEALTH TODAY= 85% RADIATION ONCOLOGY FOLLOW UP NOTE Patient Name: Sarah Mcguire Provider: Dr. Andrew Bueno : 1945 Date: 11/29/2023 DIAGNOSIS: 78 y/o with grade 2 meningioma of the scalp. s/p skull lesion biopsy (10/13/22), and s/p left frontal craniectomy and plastics closure on 11/16/22. Postoperative course was complicated by right thalamic/internal capsule stroke, s/p left frontal craniotomy for epidural hematoma evacuation on 11/24/2022. CURRENT STATUS OF DISEASE: No clinical or radiographic evidence of progression. PRIOR RADIATION TREATMENT: 1) Meningioma 60-75Gy in 30fx completed 03/16/23. INTERVAL SINCE COMPLETION OF TREATMENT: 8 months Interval History: Patient arrives with her daughter for follow up today. Patient continues to have mild headaches at the top of her head. She denies visual changes, trouble eating or drinking, bowel or bladder issues. She does have some dizziness with position changes, and she fell a few weeks ago walking on unstable surface, she did not hit her head. Patient is back to walking with a walker, and is restarting PT/OT. She states the goal is to be able to walk without her walker. Patient has bilateral hearing aides, but did not wear them today due to having an MRI. Patient has intermittent bilateral leg edema, and is wearing her compression stockings. Of note the patient denied weight loss, change in energy level, headache, nausea, vomiting, vertigo, vision or hearing changes, seizures, syncope, new focal weakness, numbness, or difficulty walking. Denies any cough. No hemoptysis. No fever, chills or night sweats. Promis 28, was 31 05/2023. Review of Systems: A complete 14 system review was negative except as noted in the HPI above. Allergies: No Known Allergies Medications: Current Outpatient Medications: Acetaminophen 325 MG tablet, 1 tablet by Per NG tube route every 4 hours as needed for Mild Pain., Disp: 30 tablet, Rfl: 0 AMIOdarone 200 MG tablet, , Disp: , Rfl: apixaban (Eliquis) 5 MG tablet, , Disp: , Rfl: Atorvastatin 10 MG tablet, Take 1 tablet by mouth at bedtime., Disp: , Rfl: carveDILOL 12.5 MG tablet, 1 tablet by Per NG tube route every 12 hours., Disp: 60 tablet, Rfl: 0 Doxazosin 2 MG tablet, Take 1 tablet by mouth at bedtime., Disp: , Rfl: hydroCHLOROthiazide 25 MG tablet, Take 1 tablet by mouth daily., Disp: , Rfl: Lisinopril 2.5 MG tablet, , Disp: , Rfl: magnesium Chloride (Mag64) [address] tablet ER, , Disp: , Rfl: Physical Exam: Performance status: Karnofsky scale 80 (ECOG grade 1) Performs normal activity with effort; some signs & symptoms of disease General: NAD, patient well appearing. HEENT: Oropharynx is clear without erythema or exudates. Neck: no decrease in suppleness, trachea midline. Well healed incision on scalp with well approximated skin. Focal alopecia present. CV: regular rate and rhythm, no audible murmurs, rubs, or gallops Resp: Breathing is non-labored on room air. Lungs clear to auscultation bilaterally. Abdomen: Soft, NT, ND. Bowel sounds normoactive. No guarding, no rebound Extremities: No acute findings. Mild non-pitting BLE. Skin: color, texture and turgor wnl. No rashes and lesions. Neuro: AAO x 3, appropriately interactive, normal affect, speech fluent. Cranial nerves II through XII are intact grossly and symmetrically. No focal neurologic deficit. Normal sensation to LT intact bilaterally in the upper and lower extremities. BLE 4/5, BUE 4/5. Imaging and Diagnostic Studies: 11/29/23: MRI Brain with perfusion: pending TOXICITY: Grade 1 fatigue. Assessment/Plan: 78 y/o with grade 2 meningioma of the scalp. s/p skull lesion biopsy (10/13/22), and s/p left frontal craniectomy and plastics closure on 11/16/22. Postoperative course was complicated by right thalamic/internal capsule stroke, s/p left frontal craniotomy for epidural hematoma evacuation on 11/24/2022. Patient is s/p radiation to Meningioma of scalp 60-75Gy in 30fx completed 03/16/23. Patient arrives with her daughter for follow up today. Patient reports stable mild headaches on top of her head. Patient denies visual changes, trouble eating or drinking, bowel or bladder issues. She does have some dizziness with position changes. She had a fall several weeks ago when walking up a hill and fell on her bottom, did not hit her head. She is now walking with her walker again, but is restarting PT/OT and hopes to get back to walking with just a cane. The final read of the MRI Brain is not completed at this time, however, upon physician review it appears stable. Dr. Bueno plans to see the patient back with a repeat MRI in 3 months and a neuroendocrine PET scan in 3 months.. Plan: 1) RTC in 3 months 2) MRI Brain (perfusion) in 3 months 3) Neuroendocrine PET in 3 months All the patient's questions were answered to verbalized satisfaction. We instructed the patient to call with any questions or concerns in the interim. The patient was seen and the plan of care was developed with Dr. Bueno, attending physician. Kristine ABREU, pager [phone] Radiation Oncology Attending Addendum: I saw and independently examined this patient today on 11/29/2023. I discussed my findings and the therapeutic plan with Radiation Oncology Nurse Practitioner, Kristine Blue APRN, CNP. I agree with her history, physical examination, and medical decisions as outlined. I have reviewed the progress note and edited as appropriate. I edited the assessment, physical examination, impression and plan to reflect the patient's current status and treatment plan, which was developed mutually at the time of the visit with the patient. DIAGNOSIS: 77 y/o with grade 2 meningioma of the scalp. s/p skull lesion biopsy (10/13/22), and s/p left frontal craniectomy and plastics closure on 11/16/22. Postoperative course was complicated by right thalamic/internal capsule stroke, s/p left frontal craniotomy for epidural hematoma evacuation on 11/24/2022. CURRENT STATUS OF DISEASE: No clinical or radiographic evidence of progression. PRIOR RADIATION TREATMENT: 1) Meningioma 60-75Gy in 30fx completed 03/16/23. INTERVAL SINCE COMPLETION OF TREATMENT: 8 months Interval History: Sarah Mcguire is a 78 y.o. female with a WHO grade 2 meningioma s/p subtotal resection and dose escalated 75 Gy in 30 fractions to the tumor. She presents today for routine follow-up with her daughter and mentions grade 1 fatigue, daily headaches, rating a 2-3 out of 10 (relived with Tylenol), balance difficulty (plan to restart CA/OT this week), dizziness with position change, left sided neuropathy, intermittent left leg edema wears compression stockings, and rare word finding difficulty. PROMIS: 28 (was 31 on 05/19/23) Neuro exam, unchanged. I have reviewed the MRI imaging with the patient at the time of the visit. The final radiology report has not yet been published, however on our physician review her MRI brain from 11/29/23 shows no evidence of recurrence or disease progression. The plan for the patient is to continue with routine MRI surveillance imaging. The exam is stable, imaging is stable. Recommendations: 1) RTC in 3 months. 2) MRI brain with perfusion in 3 months. 3) Neuroendocrine PET scan in 3 months. 4) Advised pt to consider Rogaine to apply to scalp for hair regrowth within treatment site. Thank you for allowing us to participate in the care of this patient. Please do not hesitate to contact me should any questions arise. Documented by Danny Mckeon, for Dr. Andrew Bueno on 11/29/2023 4:53 PM. All medical record entries made by the Linda were at my direction and personally dictated by me, Andrew Bueno MD . I have reviewed and edited the chart and agree that the record accurately reflects my personal performance of the history, physical exam, assessment and plan. I have also personally directed, reviewed, and agree with the discharge instructions. Andrew Bueno MD Band Ripsaw Operator Department of Radiation Oncology Pager: [phone] Office: [phone] documented in this encounter [facility] 11-29-2023 Instructions Kristine Blue APRN-[employer] - 11/29/2023 2:30 PM EDT It was a pleasure to see you today! Please call our office if you develop any new or worsening symptoms in the interim. [phone]. Please schedule a MRI Brain and Neuroendocrine PET scan prior to follow up with Dr. Bueno in 3 months. documented in this encounter [facility] 05-19-2023 History of Present illness Narrative Patient seen today in clinic for two month follow up. She is here with her daughter NEURO ASSESSMENT Pain: headache (see below) Fatigue: Grade 1 Headache: top of head and eyes, 2/10 Seizures: denies Falls: yes, 1 1/2 months ago was using her walker and ran into a chair, she fell on her bottom, did not hit head Weakness: yes, gets PT three times a week Balance difficulty: yes, PT is working on her balance an walking Dizziness/Light headedness: yes, now and then with position changes Vision changes: denies Hearing changes: can't hear out of left ear. Patient has an appointment tomorrow with PCP, she had to have wax cleaned out of her ear in January. Memory changes: denies Speech/Word finding difficulty: denies Numbness/Tingling: yes, whole left side-since December from waist up and in left leg, occasionally has arm jerks Nausea/Vomiting: denies PROMIS: 31 Chemo/immunotherapy: denies Follows with: Dr. Kincaid Recent Hospitalizations: denies -patient has significant amount of scabbing top of head over her incision Kristine Blue CNP notified Cherrie Mendoza RN RADIATION ONCOLOGY FOLLOW UP NOTE Patient Name: Sarah Mcguire Provider: Dr. Andrew Bueno : 1945 Date: 05/19/2023 DIAGNOSIS: 77 y/o with grade 2 meningioma of the scalp. s/p skull lesion biopsy (10/13/22), and s/p left frontal craniectomy and plastics closure on 11/16/22. Postoperative course was complicated by right thalamic/internal capsule stroke, s/p left frontal craniotomy for epidural hematoma evacuation on 11/24/2022. CURRENT STATUS OF DISEASE: No clinical or radiographic evidence of progression. PRIOR RADIATION TREATMENT: 1) Meningioma 60-75Gy in 30fx completed 03/16/23. INTERVAL SINCE COMPLETION OF TREATMENT: 2 months Interval History: Patient arrives with her daughter for follow up today. Patient is concerned that she still has a rather long area of scabbing over her incision area. Otherwise, patient denies any new headache, visual changes, trouble eating or drinking, bowel or bladder issues. She does have some dizziness with position changes, and she is working with PT 3 times per week to improve this, and increase her strength. She states the goal is to be able to walk without her walker. Of note the patient denied weight loss, change in energy level, headache, nausea, vomiting, vertigo, vision or hearing changes, seizures, syncope, new focal weakness, numbness, or difficulty walking. Denies any cough. No hemoptysis. No fever, chills or night sweats. Promis 31. Review of Systems: A complete 14 system review was negative except as noted in the HPI above. Allergies: No Known Allergies Medications: Current Outpatient Medications: Acetaminophen 325 MG tablet, 1 tablet by Per NG tube route every 4 hours as needed for Mild Pain., Disp: 30 tablet, Rfl: 0 AMIOdarone 200 MG tablet, , Disp: , Rfl: apixaban (Eliquis) 5 MG tablet, , Disp: , Rfl: Atorvastatin 10 MG tablet, Take 1 tablet by mouth at bedtime., Disp: , Rfl: carveDILOL 12.5 MG tablet, 1 tablet by Per NG tube route every 12 hours., Disp: 60 tablet, Rfl: 0 Doxazosin 2 MG tablet, Take 1 tablet by mouth at bedtime., Disp: , Rfl: hydroCHLOROthiazide 25 MG tablet, Take 1 tablet by mouth daily., Disp: , Rfl: Lisinopril 2.5 MG tablet, , Disp: , Rfl: magnesium Chloride (Mag64) [address] tablet ER, , Disp: , Rfl: Physical Exam: Performance status: Karnofsky scale 80 (ECOG grade 1) Performs normal activity with effort; some signs & symptoms of disease General: NAD, patient well appearing. HEENT: Oropharynx is clear without erythema or exudates. Neck: no decrease in suppleness, trachea midline. Well healed incision on scalp with clean and dry scab overlying the area. CV: regular rate and rhythm, no audible murmurs, rubs, or gallops Resp: Breathing is non-labored on room air. Lungs clear to auscultation bilaterally. Abdomen: Soft, NT, ND. Bowel sounds normoactive. No masses, no organomegaly. Extremities: No acute findings.Mild non-pitting BLE. Skin: color, texture and turgor wnl. No rashes and lesions. Neuro: AAO x 3, appropriately interactive, normal affect, speech fluent. Cranial nerves II through XII are intact grossly and symmetrically. No focal neurologic deficit. Normal sensation to LT intact bilaterally in the upper and lower extremities. BLE 4/5, BLE 4/5. Imaging and Diagnostic Studies: 05/19/23: MRI Brain with perfusion: pending TOXICITY: Grade 1 fatigue. Assessment/Plan: 77 y/o with grade 2 meningioma of the scalp. s/p skull lesion biopsy (10/13/22), and s/p left frontal craniectomy and plastics closure on 11/16/22. Postoperative course was complicated by right thalamic/internal capsule stroke, s/p left frontal craniotomy for epidural hematoma evacuation on 11/24/2022. Patient is s/p radiation to Meningioma of scalp 60-75Gy in 30fx completed 03/16/23. Patient arrives with her daughter for follow up today. Patient is concerned that she still has a rather long area of scabbing over her incision area. They are trying moisturizing cream for the scab. If this does not improve, patient instructed to call clinic. Otherwise, patient denies any new headache, visual changes, trouble eating or drinking, bowel or bladder issues. She does have some dizziness with position changes, and she is working with PT 3 times per week to improve this, and increase her strength. She states the goal is to be able to walk without her walker. The final read of the MRI Brain is not completed at this time, however, upon physician review it appears stable. Dr. Bueno plans to see the patient back with a repeat MRI in 3 months. Plan: 1) RTC in 3 months 2) MRI Brain (perfusion) in 3 months All the patient's questions were answered to verbalized satisfaction. We instructed the patient to call with any questions or concerns in the interim. The patient was seen and the plan of care was developed with Dr. Bueno, attending physician. Kristine ABREU, pager [phone] Radiation Oncology Attending Addendum: I saw and independently examined this patient today on 05/19/2023. I discussed my findings and the therapeutic plan with Radiation Oncology DISPATCH OFFICER, Kristine. I agree with her history, physical examination, and medical decisions as outlined. I have reviewed the progress note and edited as appropriate. I edited the assessment, physical examination, impression and plan to reflect the patient's current status and treatment plan, which was developed mutually at the time of the visit with the patient. I have reviewed the MRI imaging with the patient at the time of the visit. The plan for the patient is to continue with routine MRI surveillance imaging. The exam is stable, imaging is stable. Thank you for allowing us to participate in the care of this patient. Please do not hesitate to contact me should any questions arise. Andrew Bueno MD Band Ripsaw Operator Department of Radiation Oncology Pager: [phone] Office: [phone] Cognitive Function - Short Form 8a ([employer]) In the past 7 days... My thinking has been slow: 3 : Sometimes (two or three times) It has seemed like my brain has not been working as well as usual: 4 : Rarely (once) I have had to work harder than usual to keep track of what I was doin : Rarely (once) I have had trouble shifting back and forth between different activities that require thinkin : Rarely (once) I have had trouble concentratin : Rarely (once) I have had to work really hard to pay attention, or I would make a mistake: 4 : Rarely (once) I have had trouble forming thoughts: 3 : Sometimes (two or three times) I have had trouble adding or subtracting numbers in my head: 5 : Never EQ-5D-3L FORM: MOBILITY: (2) I have some problems in walking about SELF-CARE: (2) I have some problems washing or dressing myself USUAL ACTIVITIES (e.g. work, study, housework, family, or leisure activities): (1) I have no problems with performing my usual activities PAIN / DISCOMFORT: (2) I have moderate pain or discomfort ANXIETY / DEPRESSION: (2) I am moderately anxious or depressed We would like to know how good or bad your health is TODAY This scale is numbered 0 to 100 100 means the best health you can imagine 0 means the worst health you can imagine Sylvain X on the scale to indicate how your health is TODAY Now, please write the number you marked on the scale in the box below. YOUR HEALTH TODAY= did not fill out documented in this encounter [facility] 05-19-2023 Instructions LOIS Middleton - 05/19/2023 2:30 PM EST It was a pleasure to see you today! Please call our office if you develop any new or worsening symptoms in the interim. [phone]. Please schedule a MRI prior to follow up with Dr. Bueno in 3 months. documented in this encounter [facility] 03-15-2023 History of Present illness Narrative RADIATION ONCOLOGY ON TREATMENT VISIT Sarah Mcguire is here for an On Treatment Visit for External Beam Radiation to left frontal temporal meningioma. Sarah Mcguire has received 29 of 30 fx's and 5800 cGy of 6000 cGy. VS and weight obtained. Diagnosis: Meningioma grade 2 Concurrent Chemotherapy: denies Current seizure medications: denies Current steroids: denies Here today with her daughter. Staying in hotel during treatment. PT/OT resume after finishing RT. NEURO ASSESSMENT Pain: denies Fatigue: Grade 1 Headache: discomfort, intermittently takes tylenol with relief Seizures: denies Falls: assisted fall onto the couch while turning direction with her grandson, he didn't pivot with her. Did not hit head, no sustained injuries Weakness: denies Balance difficulty: mild imbalance, using walker transitioning to cane Dizziness/Light headedness: with position change Vision changes: intermittent blurry vision; plans for an eye exam after finishing RT Hearing changes: chronic bilateral tinnitus Memory changes: denies Speech/Word finding difficulty: denies Numbness/Tingling: stable numbness on left arm and left leg- started after surgery Appetite: good Nausea/Vomiting: mild nausea, believes it is due to her iron and zinc vitamins, started taking with food which has helped. 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 MD Annelise Deleon RN RADIATION ONCOLOGY ON-TREATMENT VISIT Date of service: 03/15/2023 ID: Sarah Mcguire 77 y.o. female with past medical history of a scalp tumor confirmed to be a meningoma, Grade 2. Pt is s/p skull lesion biopsy (10/13/22), and s/p left frontal craniectomy and plastics closure on 11/16/22. Postoperative course was complicated by right thalamic/internal capsule stroke, s/p left frontal craniotomy for epidural hematoma evacuation on 11/24/2022 Treatment Site: Left frontoteporal Current Total Dose: 58 Gy Planned Total Dose: 60 Gy Fraction Number: Dose per Fraction: 2 Gy Chemotherapy: None Subjective: Patient doing well this week with mild fatigue. No new numbness, falls, seizures, nausea, or vision changes. Objective: Vitals: weight is 54.4 kg (120 lb). Her oral temperature is 97.9 F (36.6 C). Her blood pressure is 160/68 and her pulse is 62. Her respiration is 16 and oxygen saturation is 97%. Performance status: Karnofsky scale 70 (ECOG grade 1) Cares for self, unable to perform normal activity or active work General: NAD. Well appearing. 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 Labs: Lab Results Component Value Date WBC 11.63 (H) 12/06/2022 HGB 10.1 (L) 12/06/2022 HCT 29.6 (L) 12/06/2022 PLATELET 227 12/06/2022 MCV 87.3 12/06/2022 Toxicity:g1 alopecia Assessment/Plan: - Evaluated patient for radiation reactions/side effects and were noted as above. - Radiation therapy side effects consistent with current radiation dose. - I have personally reviewed and approved all treatment related imaging, table shifts, and daily setup this week for the patient. - arrange follow up - The patient is tolerating treatment as expected based on radiation dose. - Continue radiation therapy as planned. Andrew Bueno MD Administrative Associate Department of Radiation Oncology documented in this encounter [facility] 03-15-2023 Instructions Annelise Rogers RN - 03/15/2023 10:00 AM EDT Please return in 2 months with repeat brain MRI and follow up with Dr. Bueno on same day! (Patient cannot do Mondays) documented in this encounter [facility] 03-08-2023 History of Present illness Narrative RADIATION ONCOLOGY ON TREATMENT VISIT Sarah Mcguire is here for an On Treatment Visit for External Beam Radiation to left frontal temporal meningioma. Sarah Mcguire has received 24 of 30 fx's and 4800 cGy of 6000 cGy. VS and weight obtained. Diagnosis: Meningioma grade 2 Concurrent Chemotherapy: denies Current seizure medications: denies Current steroids: denies Here today with her daughter. Staying in hotel during treatment. PT/OT resume after finishing RT. NEURO ASSESSMENT Pain: denies Fatigue: Grade 1 Headache: discomfort, intermittently takes tylenol with relief Seizures: denies Falls: denies Weakness: denies Balance difficulty: mild imbalance, using walker transitioning to cane Dizziness/Light headedness: with position change Vision changes: intermittent blurry vision; plans for an eye exam after finishing RT Hearing changes: chronic bilateral tinnitus Memory changes: denies Speech/Word finding difficulty: denies Numbness/Tingling: stable numbness on left arm and left leg- started after surgery Appetite: good Nausea/Vomiting: mild nausea, believes it is due to her iron and zinc vitamins, started taking with food which has helped. 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 Singh notified Annelise Rogers RN RADIATION ONCOLOGY ON-TREATMENT VISIT Date of service: 03/08/2023 ID: Sarah Mcguire 77 y.o. female with past medical history of a scalp tumor confirmed to be a meningoma, Grade 2. Pt is s/p skull lesion biopsy (10/13/22), and s/p left frontal craniectomy and plastics closure on 11/16/22. Postoperative course was complicated by right thalamic/internal capsule stroke, s/p left frontal craniotomy for epidural hematoma evacuation on 11/24/2022 Treatment Site: Left frontoteporal Current Total Dose: 48 Gy Planned Total Dose: 60 Gy Fraction Number: Dose per Fraction: 2 Gy Chemotherapy: None Subjective: Patient doing well this week with grade I fatigue. No new numbness, falls, seizures, nausea, or vision changes. She uses walker, mild dizziness, chronic left hearing loss, right hearing is good, stable left sided numbness. Objective: Vitals: weight is 54.7 kg (120 lb 11.2 oz). Her infrared temperature is 97.9 F (36.6 C). Her blood pressure is 152/66 and her pulse is 70. Her respiration is 16 and oxygen saturation is 98%. Performance status: Karnofsky scale 70 (ECOG grade 1) Cares for self, unable to perform normal activity or active work General: NAD. Well appearing. Neuro: Neurologically grossly unchanged from prior examination. Left sided numbness and left sided hearing loss Labs: Lab Results Component Value Date WBC 11.63 (H) 12/06/2022 HGB 10.1 (L) 12/06/2022 HCT 29.6 (L) 12/06/2022 PLATELET 227 12/06/2022 MCV 87.3 12/06/2022 Assessment/Plan: - Evaluated patient for radiation reactions/side effects and were noted as above. - Radiation therapy side effects consistent with current radiation dose. - The patient is tolerating treatment as expected based on radiation dose. - Continue radiation therapy as planned. Ameya Singh MD documented in this encounter [facility] 03-01-2023 History of Present illness Narrative RADIATION ONCOLOGY ON TREATMENT VISIT Sarah Mcguire is here for an On Treatment Visit for External Beam Radiation to left frontal temporal meningioma. Sarah Mcguire has received 20 of 30 fx's and 4000 cGy of 6000 cGy. VS and weight obtained. Diagnosis: Meningioma grade 2 Concurrent Chemotherapy: denies Current seizure medications: denies Current steroids: denies Here today with her daughter. Staying in hotel during treatment. PT/OT resume after finishing RT. NEURO ASSESSMENT Pain: denies Fatigue: Grade 1 Headache: discomfort, intermittently takes tylenol with relief Seizures: denies Falls: denies Weakness: denies Balance difficulty: mild imbalance, using walker transitioning to cane Dizziness/Light headedness: with position change Vision changes: intermittent blurry vision; plans for an eye exam after finishing RT Hearing changes: chronic bilateral tinnitus Memory changes: denies Speech/Word finding difficulty: denies Numbness/Tingling: stable numbness on left arm and left leg- started after surgery Appetite: good Nausea/Vomiting: denies Radiation dermatitis: G1 alopecia hair starting to thin; remedy cream provided -BLE edema, wearing compression stockings Julian Siddiqui MD notified Annelise Rogers RN RADIATION ONCOLOGY ON-TREATMENT VISIT Date of service: 03/01/2023 ID: Sarah Mcguire 77 y.o. female with past medical history of a scalp tumor confirmed to be a meningoma, Grade 2. Pt is s/p skull lesion biopsy (10/13/22), and s/p left frontal craniectomy and plastics closure on 11/16/22. Postoperative course was complicated by right thalamic/internal capsule stroke, s/p left frontal craniotomy for epidural hematoma evacuation on 11/24/2022 Treatment Site: Left frontoteporal Current Total Dose: 40 Gy Planned Total Dose: 60 Gy Fraction Number: Dose per Fraction: 2 Gy Chemotherapy: None Subjective: Patient doing well this week with grade I fatigue. No new numbness, falls, seizures, nausea, or vision changes. She uses walker, mild dizziness, chronic left hearing loss, right hearing is good, stable left sided numbness. Objective: Vitals: vitals were not taken for this visit. Performance status: Karnofsky scale 70 (ECOG grade 1) Cares for self, unable to perform normal activity or active work General: NAD. Well appearing. Neuro: Neurologically grossly unchanged from prior examination. Left sided numbness and left sided hearing loss Labs: Lab Results Component Value Date WBC 11.63 (H) 12/06/2022 HGB 10.1 (L) 12/06/2022 HCT 29.6 (L) 12/06/2022 PLATELET 227 12/06/2022 MCV 87.3 12/06/2022 Assessment/Plan: - Evaluated patient for radiation reactions/side effects and were noted as above. - Radiation therapy side effects consistent with current radiation dose. - Dr. Bueno reviewed and approved all treatment related imaging, table shifts, and daily setup this week for the patient. - The patient is tolerating treatment as expected based on radiation dose. - Continue radiation therapy as planned. Julian Siddiqui MD Radiation Oncology Resident Pager:[phone] On Treatment Visit Addendum: I saw and independently examined this patient today with the Radiation Oncology Resident. I agree with the documented history, physical exam findings, and medical decisions as outlined. I discussed my findings and plan with them, and personally reviewed and approved all treatment related imaging, table shifts, and daily setup this week for the patient. Radiation therapy side effects consistent with radiation dose. The patient will continue radiation therapy as planned. Andrew Bueno MD Band Ripsaw Operator Department of Radiation Oncology [facility] documented in this encounter [facility] 02-15-2023 History of Present illness Narrative RADIATION ONCOLOGY ON TREATMENT VISIT Sarah Mcguire is here for an On Treatment Visit for External Beam Radiation to left frontal temporal meningioma. Sarah Mcguire has received 10 of 30 fx's and 2000 cGy of 6000 cGy. VS and weight obtained. Diagnosis: Meningioma grade 2 Concurrent Chemotherapy: denies Current seizure medications: denies Current steroids: denies Here today with her daughter. Staying in hotel during treatment. PT/OT resume after finishing RT. NEURO ASSESSMENT Pain: denies Fatigue: Grade 1 Headache: discomfort, intermittently takes tylenol with relief Seizures: denies Falls: denies Weakness: denies Balance difficulty: mild imbalance, using walker transitioning to cane Dizziness/Light headedness: with position change Vision changes: the other day had blurry vision with TV, hasn't had lenses checked in 2-3 years, will be getting eye exam after finishing RT Hearing changes: chronic bilateral tinnitus, cannot hear out of left ear (was having problems before surgery) , now right ear hearing decreasing, recommending PCP Memory changes: denies Speech/Word finding difficulty: denies Numbness/Tingling: stable numbness on left arm and left leg- started after surgery Appetite: good Nausea/Vomiting: denies Radiation dermatitis: denies; remedy cream provided -BLE edema, wearing compression stockings Julian Siddiqui MD notified. Annelise Rogers RN RADIATION ONCOLOGY ON-TREATMENT VISIT Date of service: 02/15/2023 ID: Sarah Mcguier 77 y.o. female with past medical history of a scalp tumor confirmed to be a meningoma, Grade 2. Pt is s/p skull lesion biopsy (10/13/22), and s/p left frontal craniectomy and plastics closure on 11/16/22. Postoperative course was complicated by right thalamic/internal capsule stroke, s/p left frontal craniotomy for epidural hematoma evacuation on 11/24/2022 Treatment Site: Left frontoteporal Current Total Dose: 20 Gy Planned Total Dose: 60 Gy Fraction Number: 04/04 Dose per Fraction: 2 Gy Chemotherapy: None Subjective: Patient doing well this week with grade I fatigue. No new numbness, falls, seizures, nausea, or vision changes. She uses walker, mild dizziness, chronic left hearing loss, right hearing is good, stable left sided numbness. Objective: Vitals: weight is 54.1 kg (119 lb 3.2 oz). Her oral temperature is 97.8 F (36.6 C). Her blood pressure is 148/62 and her pulse is 66. Her respiration is 16 and oxygen saturation is 97%. Performance status: Karnofsky scale 70 (ECOG grade 1) Cares for self, unable to perform normal activity or active work General: NAD. Well appearing. Neuro: Neurologically grossly unchanged from prior examination. Left sided numbness and left sided hearing loss Labs: Lab Results Component Value Date WBC 11.63 (H) 12/06/2022 HGB 10.1 (L) 12/06/2022 HCT 29.6 (L) 12/06/2022 PLATELET 227 12/06/2022 MCV 87.3 12/06/2022 Assessment/Plan: - Evaluated patient for radiation reactions/side effects and were noted as above. - Radiation therapy side effects consistent with current radiation dose. - Dr. Bueno reviewed and approved all treatment related imaging, table shifts, and daily setup this week for the patient. - The patient is tolerating treatment as expected based on radiation dose. - Continue radiation therapy as planned. Julian Siddiqui MD Radiation Oncology Resident Pager:[phone] On Treatment Visit Addendum: I saw and independently examined this patient today with the Radiation Oncology Resident. I agree with the documented history, physical exam findings, and medical decisions as outlined. I discussed my findings and plan with them, and personally reviewed and approved all treatment related imaging, table shifts, and daily setup this week for the patient. Radiation therapy side effects consistent with radiation dose. The patient will continue radiation therapy as planned. Andrew Bueno MD Band Ripsaw Operator Department of Radiation Oncology [facility] documented in this encounter [facility] 02-08-2023 History of Present illness Narrative RADIATION ONCOLOGY ON TREATMENT VISIT Sarah Mcguire is here for an On Treatment Visit for External Beam Radiation to left frontal temporal meningioma. Sarah Mcguire has received 5 of 30 fx's and 1000 cGy of 6000 cGy. VS and weight obtained. Diagnosis: Meningioma grade 2 Concurrent Chemotherapy: denies Current seizure medications: denies Current steroids: denies Here today with her daughter. Staying in hotel during treatment. PT/OT resume after finishing RT. NEURO ASSESSMENT Pain: denies Fatigue: Grade 1 Headache: slight headaches, only lasts a few minutes, intermittently takes tylenol with relief Seizures: denies Falls: denies Weakness: denies Balance difficulty: mild imbalance, using walker transitioning to cane Dizziness/Light headedness: today when getting off RT table Vision changes: denies Hearing changes: chronic bilateral tinnitus, cannot hear out of left ear (was having problems before surgery) Memory changes: denies Speech/Word finding difficulty: denies Numbness/Tingling: stable numbness on left arm and left leg- started after surgery Appetite: good Nausea/Vomiting: denies Radiation dermatitis: denies; remedy cream provided -BLE edema, wearing compression stockings Andrew Bueno MD notified. Annelise Rogers RN RADIATION ONCOLOGY ON-TREATMENT VISIT Date of service: 02/08/2023 ID: Sarah Mcguire 77 y.o. female with past medical history of a scalp tumor confirmed to be a meningoma, Grade 2. Pt is s/p skull lesion biopsy (10/13/22), and s/p left frontal craniectomy and plastics closure on 11/16/22. Postoperative course was complicated by right thalamic/internal capsule stroke, s/p left frontal craniotomy for epidural hematoma evacuation on 11/24/2022 Treatment Site: Left frontoteporal Current Total Dose: 1000/350 cGy Planned Total Dose: 6000/7500 cGy Fraction Number: 11/02 Dose per Fraction: 200 Gy (350 cGy) Chemotherapy: None Subjective: Patient doing well this week with no fatigue. No new numbness, falls, seizures, nausea, or vision changes. Objective: Vitals: weight is 55.3 kg (121 lb 14.4 oz). Her oral temperature is 97.7 F (36.5 C). Her blood pressure is 150/72 and her pulse is 69. Her respiration is 16 and oxygen saturation is 98%. Performance status: Karnofsky scale 80 (ECOG grade 1) Performs normal activity with effort; some signs & symptoms of disease General: NAD. Well appearing. 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 Labs: Lab Results Component Value Date WBC 11.63 (H) 12/06/2022 HGB 10.1 (L) 12/06/2022 HCT 29.6 (L) 12/06/2022 PLATELET 227 12/06/2022 MCV 87.3 12/06/2022 Toxicity:g0 Assessment/Plan: - Evaluated patient for radiation reactions/side effects and were noted as above. - Radiation therapy side effects consistent with current radiation dose. - I have personally reviewed and approved all treatment related imaging, table shifts, and daily setup this week for the patient. - Continue as planned - The patient is tolerating treatment as expected based on radiation dose. - Continue radiation therapy as planned. Andrew Bueno MD Administrative Associate Department of Radiation Oncology documented in this encounter [facility] 01-19-2023 History of Present illness Narrative Sarah Mcguire was seen 01/19/2023 in Radiation Oncology for a CT Simulation. Sarah Mcguire will start radiation on 02/01/2023 and receive 30 treatments. Final treatment will be on 03/15/2023. Dr. Kincaid's medical oncology group notified by BRENDA samaniego. Assessed pt for any further needs with regard to childcare, spiritual, financial, transportation, or psychosocial issues. Further education was provided to Sarah Mcguire regarding side effects of radiation, the OTV process, and Time Out procedures prior to daily treatments. No further assistance needed at this time. Annelise Rogers RN [facility] Instructions Annelise Rogers RN - 01/19/2023 3:[address] Simulation Instructions You had a CT scan today. If you had IV contrast for your CT, make sure you drink 2-3 extra glasses of water this evening to help your kidneys flush the contrast from your blood. Your CT scan will help your doctor, the dosimetrists, and the physicists plan for your radiation treatment. This planning normally takes about 7-10 days, after which you will start treatment. You may start treatment earlier than this in some cases. You will leave today with a full schedule of all of your radiation appointments. If there is a time of day that works best for you for treatment, let your radiation therapist know during your CT so they can try to accommodate your schedule. Any changes in treatment times after your CT will need to be made by the therapists on your machine. Radiation treatments occur daily Tuesday through Tuesday. Normally, there are no treatments on weekends or holidays. Your doctor will tell you if you need treatment on a weekend or holiday. Your treatment will normally be in the same LINAC (treatment machine) each day. You can check the monitors in each waiting room when you come to see if your treatment machine is running on time or if there is a delay. Allow for about 45-60 minutes for your treatment each day. Dr. Bueno will see you each TUESDAY at [facility] after your treatment for your On Treatment Visit (OTV). Your physician along with your primary nurse will discuss symptom management and check to see how you are doing. Your primary nurse is Annelise. Allow for a longer visit on these days. If you have side effects or trouble related to your treatment in between your weekly OTVs, ask the therapists during your treatment to see a nurse and you can be scheduled for a nursing visit following treatment. The department validates parking, so make sure to ask for a ticket each day. This includes jewel bearing polisher parking. You will be given information on reserved parking in the [place] garages. You will be given a special wrist band today that you can use to check in for your treatments. You do not need to go to registration before each radiation treatment. If you have appointments with any other department at [facility], you must go to registration prior to those appointments. Please call the radiation clinic at [phone] with any questions or concerns. You can also contact your physician via My Chart with any non-urgent issues. My Chart messages are only reviewed during regular business hours. documented in this encounter [facility] 01-19-2023 History of Present illness Narrative Patient seen today in clinic for consult. Here today with her daughter and friend. Reason for Consult: meningioma WHO grade 2 Prior Radiation: denies Prior Chemo: denies Pacemaker: denies Claustrophobia: denies Smoking History: denies Alcohol Use: rarely Drug Use: denies 11/16/2022: left frontotemporal craniectomy for resection of intraosseous meningioma with intra- and extra-cranial extension with Dr. Kincaid 11/24/2022: Left frontal craniotomy for epidural hematoma evacuation with Dr. Salazar 01/12/2023: brain MRI and PET scan NEURO ASSESSMENT Pain: head incisional soreness, rating 1-2 out of 10, not taking medications for it Fatigue: Grade 1 Headache: slight headaches, intermittently takes tylenol with relief Seizures: denies Falls: denies Weakness: denies Balance difficulty: mild imbalance, using walker, working with home PT Dizziness/Light headedness: denies Vision changes: shadows in peripheral vision have improved Hearing changes: denies Memory changes: denies Speech/Word finding difficulty: mild word finding difficulty- released from speech this week Numbness/Tingling: numbness on left arm and left leg- started after surgery Nausea/Vomiting: denies PROMIS: 38 Chemo/immunotherapy: denies -BLE edema, wearing compression stockings -PT/OT twice a week Razia Aldridge MD notified Annelise Rogers RN Cognitive Function - Short Form 8a (PROMIS Item Bank) In the past 7 days... 1. My thinking has been slow: 4 : Rarely (once) 2. It has seemed like my brain has not been working as well as usual: 4 : Rarely (once) 3. I have had to work harder than usual to keep track of what I was doin : Never 4. I have had trouble shifting back and forth between different activities that require thinkin : Never 5. I have had trouble concentratin : Never 6. I have had to work really hard to pay attention, or I would make a mistake: 5 : Never 7. I have had trouble forming thoughts: 5 : Never 8. I have had trouble adding or subtracting numbers in my head: 5 : Never TOTAL: 38 EQ-5D-3L FORM: MOBILITY: (2) I have some problems in walking about SELF-CARE: (2) I have some problems washing or dressing myself USUAL ACTIVITIES (e.g. work, study, housework, family, or leisure activities): (2) I have some problems with performing my usual activities PAIN / DISCOMFORT: (2) I have moderate pain or discomfort ANXIETY / DEPRESSION: (2) I am moderately anxious or depressed We would like to know how good or bad your health is TODAY This scale is numbered 0 to 100 100 means the best health you can imagine 0 means the worst health you can imagine Sylvain X on the scale to indicate how your health is TODAY Now, please write the number you marked on the scale in the box below. YOUR HEALTH TODAY= didn't fill out Images from the original note were not included. DIAGNOSIS: Meningioma grade 2. Dear Dr. Ernie Kincaid MD, It was a pleasure to evaluate your patient an outpatient consultation today. HISTORY OF PRESENT ILLNESS: As you know, Sarah Mcgurie is a 77 y.o. female who presents to the [facility] for adjuvant radiation for left frontal meningioma grade 2. Sarah Mcguire is a 77 y.o. female patient with past medical history of a scalp tumor confirmed to be a meningoma, Grade 2. Patient is s/p skull lesion biopsy (10/13/22), and s/p left frontal craniectomy and plastics closure on 11/16/22. Postoperative course was complicated by right thalamic/internal capsule stroke, s/p left frontal craniotomy for epidural hematoma evacuation on 11/24/2022. She still has incisional soarness 1-2/10, with slight headaches, relieved with tylenol, mild imbalance difficulty. She works twice weekly. The peripheral vision blurriness has improved. Mild word finding difficulty. Numbness on left arm and leg...PROMIS 38. Edema in lower legs. PAST MEDICAL HISTORY: Past Medical History: Diagnosis Date High blood cholesterol HTN (hypertension) PAST SURGICAL HISTORY: Past Surgical History: Procedure Laterality Date EVACUATION BRAIN HEMATOMA BY CRANIECTOMY/CRANIOTOMY SUPRATENTORIAL Left 11/24/2022 Laterality: Left; Surgeon: Chava Salazar MD; Location: [facility] OR EXCISION SKULL LESION TUMOR W/ CRANIECTOMY W/ OR W/O GRAFT Left 11/16/2022 Laterality: Left; Surgeon: Ernie Kincaid MD; Location: [facility] OR EXCISION BRAIN TUMOR BY CRANIOTOMY Left 11/16/2022 Laterality: Left; Surgeon: Ernie Kincaid MD; Location: [facility] MA[facility] OR FLAP MUSCLE/MYOCUTANEOUS/FASCIOCUTANEOU S HEAD OR NECK Left 11/16/2022 Laterality: Left; Surgeon: aSray Key MD, PhD; Location: [facility] MAIN OR GRAFT SKIN FULL THICKNESS SCALP (FTSG) Left 11/16/2022 Laterality: Left; Surgeon: Saray Key MD, PhD; Location: [facility] MAIN OR CRANIOPLASTY FOR SKULL DEFECT Left 11/16/2022 Laterality: Left; Surgeon: Saray Key MD, PhD; Location: [facility] MA[facility] OR EXCISION SKULL LESION TUMOR W/ CRANIECTOMY W/ OR W/O GRAFT Left 10/13/2022 Laterality: Left; Surgeon: Ernie Kincaid MD; Location: [facility] MAIN OR BREAST REDUCTION 1997 BREAST LUMPECTOMY Bilateral HEMORRHOIDECTOMY HYSTERECTOMY MEDICATIONS: Current Outpatient Medications Medication Sig Dispense Refill Acetaminophen 325 MG tablet 1 tablet by Per NG tube route every 4 hours as needed for Mild Pain. 30 tablet 0 AMIOdarone 200 MG tablet apixaban (Eliquis) 5 MG tablet Atorvastatin 10 MG tablet Take 1 tablet by mouth at bedtime. carveDILOL 12.5 MG tablet 1 tablet by Per NG tube route every 12 hours. 60 tablet 0 hydroCHLOROthiazide 25 MG tablet Take 1 tablet by mouth daily. Lisinopril 2.5 MG tablet magnesium Chloride (Mag64) [address] tablet ER No current facility-administered medications for this visit. ALLERGIES: Patient has no known allergies. 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 Tobacco Use Smoking status: Never Smokeless tobacco: Never Vaping Use Vaping Use: Never used Substance and Sexual Activity Alcohol use: Not Currently Comment: socially once a year Drug use: Never Sexual activity: Never Other Topics Concern Occupational Exposure No Hobby Hazards No Social History Narrative Not on file Social Determinants of Health Financial Resource Strain: Not on file Food Insecurity: No Food Insecurity (11/18/2022) Hunger Vital Sign Worried About Running Out of Food in the Last Year: Never true Ran Out of Food in the Last Year: Never true Transportation Needs: No Transportation Needs (11/18/2022) PRAPARE - Transportation Lack of Transportation (Medical): No Lack of Transportation (Non-Medical): No Physical Activity: Not on file Stress: Not on file Social Connections: Not on file Intimate Partner Violence: Not on file Housing Stability: Low Risk (11/18/2022) Housing Stability Vital Sign Unable to Pay for Housing in the Last Year: No Number of Places Lived in the Last Year: 1 Unstable Housing in the Last Year: No FAMILY HISTORY: Family History Problem Relation Age of Onset Other - Specify Father perferated bowel Prior Radiation Therapy: no Collagen Vascular Diseases: no Pacemaker: no REVIEW OF SYSTEMS: A 14 point review of systems was completed and was negative except for what is noted by the nurse and in HPI. PHYSICAL EXAM: Smoking Status Never CONSTITUTIONAL: Well developed, well nourished female, who looks their stated age of 77 y.o.. No acute distress noted. HEENT: Head: Normocephalic and atraumatic. EYES: Pupils are equal, round, and reactive to light and accommodation. Extraocular movements are intact. Sclerae are anicteric. NECK: Supple, non-tender, with no lymphadenopathy. No jugular venous distension, carotid bruits, or tracheal deviation. CARDIAC: Regular rate and rhythm. Normal S1, S2. No murmurs, rubs or gallops. PULMONARY/CHEST: Lungs are clear to auscultation and percussion bilaterally. No wheezes, rhonchi or rales noted. ABDOMINAL: Abdomen soft, non-tender, non-distended. No organomegaly. Normoactive bowel sounds in all four quadrants. No guarding, rebound. BACK: Non-tender to percussion, no CVA tenderness. Axial skeleton non-tender to percussion. EXTREMITIES: Full range of motion in all four extremities, with normal strength equally and symmetrically. No cyanosis or clubbing or edema. SKIN: Skin is warm and dry. She is not diaphoretic. NEUROLOGIC EXAM: Alert and oriented x 3. Cranial nerves II through XII are intact grossly. No focal neurologic deficit. Speech is fluent. There is no upper or lower extremitymotor deficit. Muscle strength is intact in all muscle groups. numbness (left arm and leg). PSYCHIATRIC: Appropriate mood and affect for her clinical situation. KPS: 90 CLINICAL DATA: RADIOGRAPHIC FINDINGS: I reviewed NUC PET NEUROENDOCRINE, 01/12/2023 IMPRESSION: 1. There are 4 tracer avid foci along the left frontal craniotomy and cranioplasty site as detailed above, indeterminate. This finding is likely postsurgical, although residual/recurrent disease cannot be entirely excluded. 2. There is incidental finding of epidural hematoma along the left frontal craniectomy and cranioplasty site, with approximately 4 mm right-sided midline Shift. MRI BRAIN WITH PERFUSION, 01/12/2023 IMPRESSION: - Improved postoperative meningioma resection along the left cerebral convexity. - Persistent postoperative collection adjacent to the cranioplasty site. Underlying mild mass effect remains. - Chronic infarcts in the right cerebellum, right thalamus, and along the cortex of the left frontal and parietal lobes. No evidence of acute infarct. - Stable mild midline shift. - Decrease in size of the previously noted residual enhancing focus. CT HEAD WITHOUT CONTRAST, 12/24/2022 at 1:04 pm PATHOLOGIC FINDINGS: Pathologic Diagnosis 10/13/22 A. Left skull/scalp tumor, biopsy: Meningioma, most compatible with WHO Grade 1 designation, see Comment B. Left skull/scalp tumor, excision: Meningioma, most compatible with WHO Grade 1 designation, see Comment Pathologic Diagnosis, 11/16/2022 A. Left frontotemporal tumor and bone flap, craniectomy with excision: Atypical meningioma, WHO grade 2, with bone involvement; see Comment B. Left frontotemporal tumor for Biobank, no specimen received: No microscopic diagnosis is rendered, as all the tissue submitted for research C. Glia, excision: Atypical meningioma, WHO grade 2; see Comment D. Scalp over tumor, excision: Fragments of skin consistent with scalp showing reactive changes. ALL available labs and pathology have been reviewed. ASSESSMENT AND PLAN: Sarah Mcguire is a 77 y.o. female patient with past medical history of a scalp tumor confirmed to be a meningoma, Grade 2. Pt is s/p skull lesion biopsy (10/13/22), and s/p left frontal craniectomy and plastics closure on 11/16/22. Postoperative course was complicated by right thalamic/internal capsule stroke, s/p left frontal craniotomy for epidural hematoma evacuation on 11/24/2022. Patient is doing well, no neurological symptoms except for left sided numbness of upper and lower limbs (probably due to the recent stroke). PLAN: 1) Recommend LINAC-based stereotactic radiation therapy to a total dose of 6000 cGy in a 30 fractions to the surgical bed, with boost of the AVID lesions +/- bolus to the skin. 2) Discussed the potential benefits and risks of radiation therapy, including both short-term and long-term potential side effects of radiation therapy. 3) The patient stated they understood our thoughts and were open to undergoing radiation therapy as recommended. Consents for treatment were obtained at today's visit. 4) CT Simulation scan for radiation treatment planning. We discussed the acute and late toxicities, risks, benefits and alternatives to radiation therapy. The patient has had time to ask questions and has signed informed consent. All the patients questions were answered to their satisfaction and will call with any further questions or concerns. Thank you for allowing me to participate in the management and care of your patient. If I may answer any questions in the interim, please do not hesitiate to contact me at any time. Razia Singh MD Radiation Oncology Fellow Pager: [phone] Radiation Oncology Attending Addendum: I saw and independently examined this patient today on 01/19/2023. I discussed my findings and the therapeutic plan with Radiation Oncology Fellow, Dr. Razia Aldridge. I agree with his history, physical examination, and medical decisions as outlined. I have reviewed the progress note and edited as appropriate. I edited the assessment, physical examination, impression and plan to reflect the patient's current status and treatment plan, which was developed mutually at the time of the visit with the patient. 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 CURRENT STATUS OF DISEASE: Radiographic evidence of residual disease within the left frontoparietal skull meningioma PRIOR RADIATION: N/A 1.) 11/16/2022: left frontotemporal craniectomy for resection of intraosseous meningioma with intra- and extra-cranial extension with Dr. Kincaid 2.) 11/24/2022: Left frontal craniotomy for epidural hematoma evacuation with Dr. Salazar INTERVAL SINCE COMPLETION OF RADIATION: N/A Interval History: Sarah Mcguire is a 77 y.o. female who presents in our department for consultation in regards to the role of radiation in treating a residual left frontoparietal skull meningioma WHO grade 2. Mr. Mcguire has a past medical history of a scalp tumor confirmed to be a meningoma, Grade 2. Pt is s/p skull lesion biopsy (10/13/22), and s/p left frontal craniectomy and plastics closure on 11/16/22. Postoperative course was complicated by right thalmic/internal capsule stroke, s/p left frontal craniotomy for epidural hematoma evacuation on 11/24/2022. Clinically pt reports head incisional soreness, rating a 1-2 out of 10, intermittently slight headaches (takes tylenol with relief), mild imbalance (using walker, working with home PT), improvements within peripheral vision, mild word finding difficulty, neuropathy within left arm and left leg. PROMIS: 38 On exam pt has 4+/5 strength within LLE, no focal defects. I have reviewed the MRI brain imaging with the patient at the time of the visit from 01/12/23 which shows improved postoperative meningioma resection along the left cerebral convexity. Persistent postoperative collection adjacent to the cranioplasty site. Underlying mild mass effect remains. Chronic infarcts in the right cerebellum, right thalamus, and along the cortex of the left frontal and parietal lobes. No evidence of acute infarct.Stable mild midline shift. Decrease in size of the previously noted residual enhancing focus. I also reviewed the PET scan from 01/12/23 which shows tracer avid foci along the left frontal craniotomy and cranioplasty site, with a incidental finding of epidural hematoma along the left frontal craniectomy and cranioplasty site, with approximately 4 mm right-sided midline shift. Pathologic Diagnosis from 11/16/22: A. Left frontotemporal tumor and bone flap, craniectomy with excision: Atypical meningioma, WHO grade 2, with bone involvement; see Comment B. Left frontotemporal tumor for Biobank, no specimen received: No microscopic diagnosis is rendered, as all the tissue submitted for research C. Glia, excision: Atypical meningioma, WHO grade 2; see Comment D. Scalp over tumor, excision: Fragments of skin consistent with scalp showing reactive changes. Pathologic Diagnosis from 10/13/22: A. Left skull/scalp tumor, biopsy: Meningioma, most compatible with WHO Grade 1 designation, see Comment B. Left skull/scalp tumor, excision: Meningioma, most compatible with WHO Grade 1 designation, see Comment Assessment/Plan Sarah Mcguire is a 77 y.o. female who presents in our department for consultation in regards to the role of radiation in treating a left frontoparietal skull meningioma WHO grade 2. We had a long discussion about her current diagnosis, the nature of her disease and possible treatment options. This included undergoing RT 60-75 Gy in 30 fractions to ablate the residual left frontoparietal skull meningioma WHO grade 2 non-invasively to distribute a focal treatment to the known area of disease. Treatment Plan Summary: 1) Recommend 60-75 Gy in 30 fractions to grade 2 meningioma 2) Discussed the potential benefits and risks of radiation therapy, including both short-term and long-term potential side effects of radiation therapy. 3) The patient stated they understood our thoughts and were open to undergoing radiation therapy as recommended. Consents for treatment were obtained at today's visit. 4) CT Simulation scan for radiation treatment planning. Thank you for allowing us to participate in the care of this patient. Please do not hesitate to contact me should any questions arise. Documented by Danny Mckeon, for Dr. Andrew Bueno on 01/19/2023 12:48 PM. All medical record entries made by the Danny Mckeon, were at my direction and personally dictated by me, Andrew Bueno. I have reviewed the chart and agree that the record accurately reflects my personal performance of the history, physical exam, assessment and plan. I have also personally directed, reviewed, and agree with the discharge instructions. Andrew Bueno MD [employer] Department of Radiation Oncology Pager: [phone] Office: [phone] documented in this encounter [facility] 12-20-2022 Progress note Note Date/Time December 20, 2022 12:13pm [facility] Medical Records Department [address] [place] [address] Progress Note 12/20/22 1208 MR#: [id number] Acct: [id number] Name: SARAH MCGUIRE Rep #:[id number] : 1945 77 From: Jo-Ann Arias DO PCP: Dr. Monika Venegas MD Status:ADM IN Location: [address] Subjective Subjective Afebrile VSS Maintaining appropriate oxygen saturation on RA Oral intake is good Discussed with nursing - no problems that need addressed Reviewed the PT/OT/ST notes Medication list reviewed. Sarah has had a cough since admission to rehab. It is productive but, she is unable to expectorate any sputum. She denies ST, CP and SOB. She is c/o some pain in the R ear when her hearing aid is in. She has a little rhinorrhea/nasalcongestion. She denies any hx of allergies or asthma. She denies shaking chills and night sweats. She has been afebrile. Objective Data Objective Data Vital Signs: Vital Signs Temp Pulse Resp BP Pulse Ox O2 Del Method 98.4 F 86 16 143/54 H 98 Room Air 12/20/22 07:49 12/20/22 07:49 12/20/22 07:49 12/20/22 07:49 12/20/22 07:49 12/20/22 07:49 Oxygen Delivery Method Room Air Weight: 121 lb 11.123 oz Body Mass Index (BMI) 26.3 Intake & Output: Intake and Output for Last 24 Hours 12/18/22 12/19/22 12/20/22 23:59 23:59 23:59 Intake Total 1220 / 1720 1400 / 1400 60 / 60 Output Total 1800 / 2200 1500 / 1500 Balance -580 / -480 -100 / -100 60 / 60 Lab / Micro Data 12/13/22 05:15 12/20/22 05:45 Labs: Laboratory Results - last 24 hr 12/20/22 05:45: Sodium 137 Micro: Microbiology 12/07/22 18:50 Stool C. difficile GDH Antigen & Toxins - Final 12/07/22 18:50 Stool C. difficile DNA Amplification - Final Physical Exam Const alert, oriented x3 and no apparent distress General Appearance: cooperative Orientation / Consciousness: Negative for confused HEENT HEENT Narrative: The bilateral external auditory canals are occluded with cerumen. There is no erythema of either canal. There is no pain with traction on the ear pinna. Resp Resp Narrative: Good air exchange, no conversational dyspnea. Clear posteriorly in all lung marti. Inspiratory and exp wheezing on the R anterior. The wheezing persisteddespite a cough. The cough is loose and she is unable to expectorate sputum. Effort and Inspection: Negative for tachypneic or labored Cardio regular rate, regular rhythm and no gallops GI normal to inspection, nondistended, normoactive bowel sounds, soft to palpation and non-tender GI Narrative: No guarding with palpation Extremity no calf tenderness General Extremity: Negative for edema Skin General Skin Exam: no breakdown Rashes: no rashes Wound Narrative: The incision in the L thigh is intact and there is no magdaleno-incisional erythema or increased warmth to touch. There is some swelling in the upper lateral thighbut, it is progressively getting less. The drain was removed on Tuesday and whenI squeeze the drain site there is a single drop of blood that was expressed. Nofluctuance with palpation around the incision. The cranial incisions are intactwith no magdaleno-incisional erythema, no discharge and no magdaleno-incisional swelling. There are some small scabs which are gradually being removed. Neuro CN's II-XII intact bilaterally, no focal motor deficits and no sensory deficits noted Psych cooperative and affect normal Assessment & Plan Assessment/Plan (1) Physical debility: (2) Scalp lesion: (3) H/O craniotomy: (4) Ischemic cerebrovascular accident (CVA): (5) Cerebrovascular disease: (6) Pulmonary hypertension: (7) Mitral stenosis: QUALIFIERS: Cardiac valve disease etiology: nonrheumatic Qualified Code(s): I34.2 - Nonrheumatic mitral (valve) stenosis (8) Acute blood loss anemia: (9) Hyponatremia: (10) Thrush: (11) C. difficile enteritis: (12) Excessive cerumen in both ear canals: PLAN: Plan 1. Continue therapy 2. PA and lateral chest x-ray today 3. Debrox eardrops into each ear nightly x5 days then will reexamine and if shestill has wax will use ear candling to remove the wax. 4. Mucinex BID to thin the secretions. the cough is not keeping her awake at night so she will not need a cough suppressant. Charges/Coding Visit Charges Inpatient E&M: 99994 Subs Hosp L2 12/20/22 1528 <Electronically signed by Jo-Ann Arias DO> Jo-Ann Arias DO Cosigner Signature (if applicable): CC: ~ Signed ADDENDUM by Dr. Jo-Ann Arias DO on 12/20/22 at 1545 Addendum Chest x-ray is negative for infiltrate, pleural effusion or pulmonary vascular congestion. No need for antibiotics at this time. Mucinex has been prescribed to thin the secretions. 12/20/22 1545 <Electronically signed by Jo-Ann alvarado DO> Date _ Jo-Ann Arias DO Cosshahlaer Signature (if applicable): Date cc: ~* Signed [facility] Work Phone: 1(430) 544-137307-15-2023 Progress note Author Jo-Ann Arias [facility] December 18, 2022 11:48am Note Date/Time December 17, 2022 6:46 pm [facility] Medical Records Department [address] [place] [address] Progress Note 12/17/22 1844 MR#: [id number] Acct: [id number] Name: SARAH MCGUIRE Rep #:[id number] : 1945 77 From: Jo-Ann Arias DO PCP: Dr. Monika Venegas MD Status:ADM IN Location: [place] [address]84[address]5 Subjective Subjective Afebrile VSS Maintaining appropriate oxygen saturation on RA Oral intake is good. Fluid intake is very good. Discussed with nursing - no problems that need addressed Reviewed the PT/OT/ST notes Medication list reviewed. No complaints today. The drain from the left thigh was removed today. The sutures in the skull will remain intact until she sees the plastic surgeon. Denies chest pain, cephalgia, night sweats, shaking chills, shortness of breath,cough and dysuria. Objective Data Objective Data Vital Signs: Vital Signs Temp Pulse Resp BP Pulse Ox O2 Del Method 97.6 F L 90 18 136/72 H 99 Room Air 12/17/22 08:07 12/17/22 08:07 12/17/22 08:07 12/17/22 08:07 12/17/22 08:07 12/17/22 08:07 Oxygen Delivery Method Room Air Weight: 121 lb 11.123 oz Body Mass Index (BMI) 26.3 Intake & Output: Intake and Output for Last 24 Hours 12/15/22 12/16/22 12/17/22 23:59 23:59 23:59 Intake Total 1920 / 2120 1350 / 1350 1670 / 1670 Output Total 630 / 630 1605 / 1605 1325 / 1325 Balance 1290 / 1490 -255 / -255 345 / 345 Lab / Micro Data 12/13/22 05:15 12/16/22 05:37 Micro: Microbiology 12/07/22 18:50 Stool C. difficile GDH Antigen & Toxins - Final 12/07/22 18:50 Stool C. difficile DNA Amplification - Final Physical Exam Const alert, oriented x3 and no apparent distress Constitutional Narrative: Very pleasant and talkative. Cooperating with everyone. Resp clear to auscultation bilaterally Cardio regular rate, regular rhythm and no gallops Cardio Narrative: No ectopy GI normal to inspection, nondistended, normoactive bowel sounds, soft to palpation and non-tender Extremity no calf tenderness General Extremity: Negative for edema Skin Skin Narrative: There is no longer any mushy swelling on the to of the head. There is no erythema and no discharge from the incision. The Left thigh is not red and does not have any swelling. Rashes: no rashes Assessment & Plan Assessment/Plan (1) Physical debility: (2) Scalp lesion: (3) H/O craniotomy: (4) Ischemic cerebrovascular accident (CVA): (5) Cerebrovascular disease: (6) Pulmonary hypertension: (7) Mitral stenosis: QUALIFIERS: Cardiac valve disease etiology: nonrheumatic Qualified Code(s): I34.2 - Nonrheumatic mitral (valve) stenosis (8) Acute blood loss anemia: (9) Hyponatremia: (10) Thrush: (11) C. difficile enteritis: PLAN: W/U negative. PLAN: Plan 1. Continue therapy 2. Check a sodium on Tuesday. Charges/Coding Visit Charges Inpatient E&M: 47621 Subs Hosp L1 12/18/22 1148 <Electronically signed by Jo-Ann Arias DO> Jo-Ann Arias DO Cosigner Signature (if applicable): CC: ~ Signed [facility] Work Phone: 1(273) 961-505807-15-2023 Progress note Author [facility] December 18, 2022 11:42am Note Date/Time December 16, 2022 12:2 6pm [facility] Medical Records Department [address] [place] [address] Progress Note 12/16/22 1222 MR#: [id number] Acct: [id number] Name: SARAH MCGUIRE Rep #:[id number] : 1945 77 From: Jo-Ann Arias DO PCP: Dr. Monika Venegas MD Status:ADM IN Location: [place] [address] Subjective Subjective Sarah was seen on team rounds today. Her daughter and her daughters friend were present in the room. All their questions were answered to their satisfaction. Afebrile VSS-systolic blood pressure is ranging from 137-156. Diastolics are always within normal limits. Maintaining appropriate oxygen saturation on RA Oral intake is good Discussed with nursing - no problems that need addressed Reviewed the PT/OT/ST notes Medication list reviewed. Sarah has been getting up in the chair more and is much more alert during the day. She requests the bedpan but, nursing is having her get up to use the toilet. She is ambulating longer distances. Her nurse got her up by herself this morning and Sarah is gaining some confidence that she is not going to fall. all lab from today was personally reviewed. Sodium is low at 134 and the potassium is 4.2. BUN is 7 with a creatinine of 0.53 and a BUN/creatinine ratioof 13.3. Sarah denies cephalgia, lightheadedness, vertigo, chest pain, shortness of breath, palpitations, dysuria and calf tenderness. Swelling in the extremities is much better with increased moving Objective Data Objective Data Vital Signs: Vital Signs Temp Pulse Resp BP Pulse Ox O2 Del Method 97.8 F 90 17 155/51 H 97 Room Air 12/16/22 07:55 12/16/22 07:55 12/16/22 07:55 12/16/22 07:55 12/16/22 07:55 12/16/22 07:55 Oxygen Delivery Method Room Air Weight: 129 lb 10.109 oz Body Mass Index (BMI) 27.9 Intake & Output: Intake and Output for Last 24 Hours 12/14/22 12/15/22 12/16/22 23:59 23:59 23:59 Intake Total 1160 / 1160 1920 / 2120 870 / 870 Output Total 1180 / 1180 630 / 630 905 / 905 Balance -20 / -20 1290 / 1490 -35 / -35 Lab / Micro Data 12/13/22 05:15 12/16/22 05:37 Labs: Laboratory Results - last 24 hr 12/16/22 05:37: Sodium 134 L, Potassium 4.2, Chloride 103, Carbon Dioxide 27.0, Anion Gap 4 L, BUN 7, Creatinine 0.53 L, Estim Creat Clear Calc 42.34, Est GFR (MDRD) Af Amer 144, Est GFR (MDRD) Non-Af 119, BUN/Creatinine Ratio 13.3, Glucose 127 H, Calcium 8.8 Micro: Microbiology 12/07/22 18:50 Stool C. difficile GDH Antigen & Toxins - Final 12/07/22 18:50 Stool C. difficile DNA Amplification - Final Physical Exam Const alert, oriented x3 and no apparent distress General Appearance: cooperative Orientation / Consciousness: Negative for confused HEENT moist oral mucous membranes Resp clear to auscultation bilaterally Cardio regular rate, regular rhythm and no gallops GI normal to inspection, nondistended, normoactive bowel sounds, soft to palpation and non-tender Extremity no calf tenderness Extremity Narrative: No pitting edema Assessment & Plan Assessment/Plan (1) Physical debility: (2) Scalp lesion: (3) H/O craniotomy: (4) Ischemic cerebrovascular accident (CVA): (5) Cerebrovascular disease: (6) Pulmonary hypertension: (7) Mitral stenosis: QUALIFIERS: Cardiac valve disease etiology: nonrheumatic Qualified Code(s): I34.2 - Nonrheumatic mitral (valve) stenosis (8) Acute blood loss anemia: (9) Hyponatremia: (10) Thrush: (11) C. difficile enteritis: PLAN: W/U negative. PLAN: Plan 1. Continue therapy 2. Sodium decreased to 134 with decreasing salt tablets to twice daily from 3 times daily. This is acceptable. We will continue to monitor and when the sodium goes above 135 again will likely decrease salt tablets to once daily. 3. She is not to use the bedpan and is to continue to get up in the chair with meals. Charges/Coding Visit Charges Inpatient E&M: 58614 Subs Hosp L2 12/18/22 1142 <Electronically signed by Jo-Ann Arias DO> Jo-Ann Arias DO Cosigner Signature (if applicable): CC: ~ Signed [facility] Work Phone: 1(106) [phone] Progress [facility] December 18, 2022 11:30am Note Date/Time December 13, 2022 10:5 9am [facility] Medical Records Department [address] [place] [address] Progress Note 12/13/22 1053 MR#: [id number] Acct: [id number] Name: SARAH MCGUIRE Rep #:[id number] : 1945 77 From: Jo-Ann Arias DO PCP: Dr. Monika Venegas MD Status:ADM IN Location: [place] [address] Subjective Subjective Afebrile VSS-systolic is mildly elevated but diastolics are always within normal limits. Maintaining appropriate oxygen saturation on RA Oral intake is good. Fluid intake yesterday was 1390. Discussed with nursing - no problems that need addressed Reviewed the PT/OT/ST notes Medication list reviewed. All lab from this morning it was personally reviewed. Hemoglobin is 9.8, down from 10.1 on 12/07/2022. Sodium is normal at 138 and the potassium is 4.0. BUN is 10 and the creatinine is stable at 0.44. Mag is low at 1.6. Calcium corrected for hypoalbuminemia is within normal limits. Sarah denies headache, lightheadedness, chest pain, shortness of breath, cough, nausea/vomiting/abdominal pain, dysuria and calf tenderness. She is afraid of falling and is always insisting she needs 2 people to get her up. She does not want to get out of bed at night to use the toilet at night and insists on the bed reese. Objective Data Objective Data Vital Signs: Vital Signs Temp Pulse Resp BP Pulse Ox O2 Del Method 97.7 F L 89 17 138/56 H 99 Room Air 12/13/22 08:13 12/13/22 08:13 12/13/22 08:13 12/13/22 08:13 12/13/22 08:13 12/13/22 08:13 Oxygen Delivery Method Room Air Weight: 129 lb 10.109 oz Body Mass Index (BMI) 27.9 Intake & Output: Intake and Output for Last 24 Hours 12/11/22 12/12/22 12/13/22 23:59 23:59 23:59 Intake Total 1170 / 1170 1390 / 1490 490 / 490 Output Total 610 / 610 635 / 845 430 / 430 Balance 560 / 560 755 / 645 60 / 60 Lab / Micro Data 12/13/22 05:15 12/16/22 05:37 Labs: Laboratory Results - last 24 hr 12/13/22 05:15: Hgb 9.8 L, Hct 29.1 L, Sodium 138, Potassium 4.0, Chloride 107, Carbon Dioxide 27.0, Anion Gap 4 L, BUN 10, Creatinine 0.44 L, Estim Creat ClearCalc 42.34, Est GFR (MDRD) Af Amer 179, Est GFR (MDRD) Non-Af 148, BUN/Creatinine Ratio 22.9 H, Glucose 106, Calcium 8.3 L, Magnesium 1.6 Micro: Microbiology 12/07/22 18:50 Stool C. difficile GDH Antigen & Toxins - Final 12/07/22 18:50 Stool C. difficile DNA Amplification - Final Physical Exam Const alert, oriented x3 and no apparent distress Constitutional Narrative: Talkative and pleasant. General Appearance: cooperative Resp clear to auscultation bilaterally Cardio regular rate and no gallops GI normal to inspection, nondistended, normoactive bowel sounds, soft to palpation and non-tender GI Narrative: No ectopy Extremity no calf tenderness General Extremity: Negative for edema Skin General Skin Exam: no breakdown Rashes: no rashes Wound Narrative: The scalp incision is intact with no dehiscence, no erythema and no discharge. There is still a very localized mushy swelling on the top of her head. No openings in the skin. It is not tender to light palpation. Neuro CN's II-XII intact bilaterally Neuro Narrative: Generalized weakness....improving. Assessment & Plan Assessment/Plan (1) Physical debility: (2) Scalp lesion: (3) H/O craniotomy: (4) Ischemic cerebrovascular accident (CVA): (5) Cerebrovascular disease: (6) Pulmonary hypertension: (7) Mitral stenosis: QUALIFIERS: Cardiac valve disease etiology: nonrheumatic Qualified Code(s): I34.2 - Nonrheumatic mitral (valve) stenosis (8) Acute blood loss anemia: (9) Hyponatremia: (10) Thrush: (11) C. difficile enteritis: PLAN: W/U negative. PLAN: Plan 1. Continue therapy 2. Decrease sodium chloride tabs to 2 g once daily 3. Recheck a BMP and magnesium on 4. Increase mag chloride to 128 mg twice daily 5. isolation precautions discontinue. Charges/Coding Visit Charges Inpatient E&M: 07560 Subs Hosp L2 12/18/22 1130 <Electronically signed by Jo-Ann Arias DO> Jo-Ann Arias DO Cosigner Signature (if applicable): CC: ~ Signed [facility] Work Phone: 1(254) 218-235907-07-2023 Progress note Author Jo-Ann Arias [facility] December 10, 2022 8:52am Note Date/Time December 10, 2022 8:53a m [facility] Medical Records Department [address] [place] [address] Progress Note 12/10/22 0833 MR#: [id number] Acct: [id number] Name: RENETTASARAH AppleAINE Rep #:[id number] : 1945 77 From: Jo-Ann Arias PCP: Dr. Monika Venegas MD Status:ADM IN [id number] Subjective Subjective Sarah was seen yesterday on TEAM rounds and her family was present in the room. Afebrile VSS Maintaining appropriate oxygen saturation on RA Oral intake is fair. She is taking 50 to 74% of her meals but she is a small person and says her portions are too big. Most of the elderly patients in rehabsay they get too much food even though we specify smaller portions. Blood sugar record was reviewed and the blood sugars are under excellent control. Blood sugars were elevated secondary to steroids and she is required no insulin coverage. We will discontinue Accu-Cheks. Discussed with nursing - no problems that need addressed Reviewed the PT/OT/ST notes Medication list reviewed. Sarah tells me that she is very tired and she wants to sleep a lot. She is having no trouble sleeping at night. Therapy wears her out and she has poor exercise tolerance. Denies cephalgia, sore throat, chest pain, shortness of breath at rest, palpitations, vomiting/abdominal pain, dysuria and calf tenderness. She does get a little lightheaded when standing and has some shortness of breath with exertion. She feels rather nauseated today after taking a large handful of medications this morning. Nursing will try to break these up so she does not get so many medications at one time. Objective Data Objective Data Vital Signs: Vital Signs Temp Pulse Resp BP Pulse Ox O2 Del Method 98.5 F 94 16 142/61 H 97 Room Air 12/10/22 08:11 12/10/22 08:11 12/10/22 08:11 12/10/22 08:11 12/10/22 08:11 12/10/22 08:11 Oxygen Delivery Method Room Air Weight: 129 lb 10.109 oz Body Mass Index (BMI) 27.9 Intake & Output: Intake and Output for Last 24 Hours 12/08/22 12/09/22 12/10/22 23:59 23:59 23:59 Intake Total 1250 / 1250 600 / 600 250 / 250 Output Total 305 / 305 7 / 357 750 / 750 Balance 945 / 945 593 / 243 -500 / -500 Lab / Micro Data 12/07/22 06:00 12/07/22 06:00 Labs: Laboratory Results - last 24 hr 12/09/22 11:17: POC Glucose 175 H 12/09/22 16:43: POC Glucose 131 H 12/09/22 20:06: POC Glucose 153 H 12/10/22 06:55: POC Glucose 120 H Micro: Microbiology 12/07/22 18:50 Stool C. difficile GDH Antigen & Toxins - Final 12/07/22 18:50 Stool C. difficile DNA Amplification - Final Physical Exam Const alert and no apparent distress Constitutional Narrative: Lying in bed resting. No tachypnea and no labored breathing. She is pleasant and appropriate. General Appearance: cooperative Resp normal respiratory effort, normal air movement and clear to auscultation bilaterally Effort and Inspection: able to speak in complete sentences Cardio regular rate, regular rhythm, no rub and no gallops Cardio Narrative: She has a systolic MM at the second RICS that radiates to the LLSB and apex. Also with a systolic MM in the Left axillary area. GI normal to inspection, nondistended, normoactive bowel sounds, soft to palpation and non-tender GI Narrative: No guarding with palpation no CVA tenderness Extremity no calf tenderness Extremity Narrative: She has edema of the LUE from an IV that infiltrated. Also had mild edema of both LE's. Skin General Skin Exam: no breakdown Rashes: no rashes Wound Narrative: The craniotomy incision is intact with no discharge, no magdaleno-incisional erythema. There is a raised area away from the incision that is soft to palpation and not tender. No fluctuance. Not warm to touch and not red. The incision of the lateral Left thigh is intact with no erythema and no DC. There is some swelling of the left thigh and some pitting in the posterior thigh. There is resolving bruising. The drain has minimal DC. Assessment & Plan Assessment/Plan (1) Physical debility: (2) Scalp lesion: PLAN: Due to meningioma with intraosseous extension. (3) H/O craniotomy: PLAN: 11/16/22 at [facility] (4) Ischemic cerebrovascular accident (CVA): PLAN: Several foci of acute infarct most notably involving the right thalamus and right cerebellar hemisphere but she also had a few other punctate foci in both cerebral hemispheres. 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 (5) Cerebrovascular disease: PLAN: Multiple areas of stenoses in the cerebral arteries. (6) Pulmonary hypertension: PLAN: Recent ECHO with PA systolic estimated at 48. (7) Mitral stenosis: QUALIFIERS: Cardiac valve disease etiology: nonrheumatic Qualified Code(s): I34.2 - Nonrheumatic mitral (valve) stenosis PLAN: Mild to moderate. (8) Acute blood loss anemia: (9) Hyponatremia: (10) Thrush: (11) C. difficile enteritis: PLAN: Reported by the previous hospital. PLAN: Plan 1. Continue therapy 2. Give 25 GM of albumin today and 20 mg of IV Lasix to improve the third spacing of fluids.....neeraj in the legs.....she is telling me her legs feel very heavy 3. Her daughter will get the phone number of the plastic surgeon and I will call and ask if we can remove the drain and the jahaira while she is in rehab. She will not be able to leave rehab to go to her appointment at [facility] in 10 to 14 days. 4. Break up the medications so she does not get so many at one time. 5. Discontinue Accu-Cheks 6. Finished linezolid and cephalexin. 7. Recheck a BMP on Tuesday Charges/Coding Visit Charges Inpatient E&M: 15303 Subs Hosp L2 12/10/22 0852 <Electronically signed by Jo-Ann Arias DO> Jo-Ann Arias DO Cosigner Signature (if applicable): CC: ~ Signed [facility] Work Phone: 1([phone]) 429-573007-07-2023 History and physical note Author [facility] December 10, 2022 8:33am Note Date/Time December 08, 2022 4:34p m [facility] Medical Records Department [address] [place] [address] Post Admission Physician Eval 12/08/22 1632 MR#: [id number] Acct: [id number] Name: SARAH MCGUIRE Rep #:[id number] : 1945 77 From: Jo-Ann Arias DO PCP: Dr. Monika Venegas MD Status:ADM IN Location: [place] [address] Admission Information Primary Diagnosis:: Physical debility secondary to recent craniotomy to remove an extensive meningioma with postop ischemic CVAs most notably in the right internal capsule and right thalamus. Status Changes from Prescreening?: No changes Identified Actual Problem List:: Skin Intergrity, Pain, ALteration in Cmfrt, Cognitve Impr/Memory Loss, Mobility Impaired, Self Care Deficit and Alteration-Leisure Activ. Potential Problem List:: DVT, Bleeding, Infection, UTI, Aspiration, Falls, Skin Integrity and Depression Risk of Complications DVT: TORSTEN Nolan and - (Heparin 5000 units subcu every 12 hours) Bleeding: Monitor Lab Values, Nursing to Teach Precautions for anti-coagulation therapy., Wound, if applicable, to be assessed every shift. and Stroke patients assessed for lethargy or change in status. Infection: Clinical Staff to Monitor for S/S of infection: and S/S of infection include fever, redness, warmth, etc. Urinary Tract Infection: Monitor for frequency, burning, discomfort, or incontinence. and Nursing will obtain urine sample for urinalysis and C&S when ordered. Aspiration: Clinical staff will monitor for coughing, drooling, congestion., Speech will evaluate swallowing and dsyphasia. and Nursing will monitor patient swallowing during meals. Falls: Patient will be evaluated for Fall Precautions and Patient will be placedon Fall Precautions as indicated per protocol. Skin Breakdown: Nursing will assess skin daily using assessment tool. and Nursing will place on Skin Breakdown Precautions as indicated. Pain: Clinical staff will assess patient's pain level per protocol., Medicationswill be given, if needed, and the pain level reassessed. and Other methods: Massage, distraction, decrease stimulus, etc. used PRN. Plan of Care Patient requires physician specializing in physical medicine and rehab oversightto provide close medical supervision of rehab issues including: Pain Management,Sleep Problems, Bowel and Bladder, Medical and co-morbidity Management, DVT prophylaxis, Rehabilitation Leadership and Coordination of treatment team Patient needs Physical Therapy: For a minimum of 1 hour and At least 5 out of 7 days Patient needs Physical Therapy to improve:: Mobility, Strengthening, Transfers, Stretching, ROM, Endurance, Stairs, Gait and Balance Patient needs Occupational Therapy: For a minimum of 1 hour and At least 5 out of 7 days Patient needs Occupational Therapy to improve ADL's incl.: Eating, Grooming, Bathing, Dressing, Toileting, Toilet transfers, Community Reintegration, Higher functioning activities, Household tasks, Adaptive Equipment, Splinting and Otheractivities as determined Patient requires speech therapy: For a minimum of 1 hour and At least 5 out of 7days Patient requires speech therapy for: Swallowing, Cognition, Language Skills and Compensatory Strategies Patient requires 24/7 Rehabilitation Nursing for: Pain Issues, Identifying and preventing risk factors, Monitoring and reporting current medical conditions, Assisting with ambulation, transfer, and all ADL's, Teaching patients about disease process and medications, Family teaching, Providing safe environment, Bowel and Bladder Issues, Skin integrity and Medication Management Patient needs Pipe Coverer And Insulator/ Case Management for: Discharge Planning, Arranging Home Equipment or Services and Family Interventions Patient needs Dietary and Nutrition Services for: Adequate Nutrition, Nutritional Supplements and Nutritional Education Goals Patient will remain: free from falls and or injury at time of discharge. Patient will perform bed mobility at: MOD I level of assist. Patient will complete transfers from bed to chair at: MOD I level of assist. Patient will ambulate: with LRD and - (350 feet at Mod I with FWW) Patient will complete upper body dressing at: MOD I level of assist. Patient will complete lower body dressing at: MOD I level of assist. Patient will complete toileting at: MOD I level of assist. Patient will perform bathing at: Standby Assist. Patient will complete grooming at: MOD I level of assist. Patient will complete home management skills at: MOD I level of assist. Patient will achieve: - (1 curb step and 4 steps to gain entry to her home) Patient will have pain level of: of 3 or less Patient's skin will: remain intact Patient will receive: adequate nutrition. Discharge Planning Pt Prognosis for Sig. Practical Improv. w/in Reasonable Time: Good Estimated Length of stay (days): 28 Anticipated D/C Destination: Home with Outpt Therapy Was Preadmission Assessment Accurate?: Yes 12/10/22 0833 <Electronically signed by Jo-Ann Arias DO> Cosigner Signature (if applicable): CC: ~ Signed [facility] Work Phone: [phone]) 228-689107-05-2023 History and physical note Author Jo-Ann Arias [facility] December 08, 2022 4:32pm Note Date/Time December 07, 2022 10:06 am [facility] Medical Records Department [address] [place], [place] [address]alma [place] [address] History & Physical Exam 12/07/22 0946 MR#: [id number] Acct: [id number] Name: SARAH MCGUIRE Rep #:[id number] : 1945 77 From: Jo-Ann AlineEnoc Arias PCP: Dr. Monika Venegas MD Status:ADM IN Location: [address] HPI - General General Date of Admission: 12/06/22 Date of Service: 12/07/22 Chief Complaint: Debility due to craniectomy for meningioma resection. 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 On 11/16/22. Postoperative course was complicated by a right thalamic/internal capsule CVA. She also had steroid induced hyperglycemia and hyponatremia. She is not diabetic and a HGBA1C was 5.4. Post op she was seen byPT/OT/ST and recommendation for acute inpt rehab at [facility] was made. Sarah was transferred to the acute inpt rehab unit at [facility] on 12/06/22 for 3 hours of therapydaily to restore function/independence at or near her level prior to the surgery. Reportedly was C DIFF + at the previous hospital but, not currently having diarrhea........she is actually on 2 stool softeners. May be a carrier. 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 Decreased caliber and number of right M2 MCA and distal branches. Intracranial arterial atherosclerosis contributes to multifocal severe stenoses including severe stenoses of the right carotid terminus, distal left supraclinoid internal carotid artery, focal severe stenosis of the proximal leftM1 MCA, multifocal severe stenoses of the right A1 anterior communicating artery, right P1 posterior cerebellar artery and focal severe stenosis of the proximal left P2 HAND COLLATOR. There were several small foci of acute infarct most notably involving the right thalamus and right cerebellar hemisphere. There were also a few other punctate foci elsewhere in both cerebral hemispheres. ECHO: The left ventricle is of normal size and has normal wall thickness and normal global systolic function with an estimated ejection fraction of 65 to 70%. There were no wall motion abnormalities. Both atria were of normal size and there is no evidence of a right to left shunt. She has mild to moderate mitral stenosis with no regurgitation. The estimated right ventricular systolicpressure is elevated at 48 consistent with moderate pulmonary hypertension. 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 No seizures were seen. Needs a 30 day event monitor at [facility]. Afebrile VSS -blood pressures have ranged from 124/55 to 157/61 since admission to rehab. Heart rate has ranged from 79-102. Maintaining appropriate oxygen saturation on RA -97 to 99%. Oral intake is good. She ate 75 to 100% of her breakfast today. Oral intake [id number] since admission and this is in less than 24H. She is incontinent of urine. No PVRs have been done yet. The blood sugar record was reviewed. At bedtime blood sugar was 264 and the fasting is 119 today. She is off dexamethasone but is on no medication to coverhigh blood sugars. Will institute a sliding insulin scale which I doubt we willneed for long because she has a normal hemoglobin A1c and no history of diabetesmellitus. Discussed with nursing - Pt is very weak and needs 2-3 person assist for stand/pivot. Medication list reviewed. She is on linezolid and Keflex. All lab drawn this morning was personally reviewed. White blood cell count is normal at 10, hemoglobin is mildly decreased 10.1 and platelets are within normallimits. Sodium is 133 and was low even prior to the craniectomy and CVA. Potassium is normal at 4.0. BUN is 14 with a creatinine of 0.39. Based Creatinine since 2000 is 0.7-0.89. She was on hydrochlorothiazide during that time. Magnesium is low normal at 1.7. Calcium corrected for hypoalbuminemia iswithin normal limits. Albumin is decreased at 1.8. LFTs are unremarkable. Lipid panel done in September 2022 shows a total cholesterol of 164 with an LDL of 82 and an HDL of 63. Triglycerides were within normal limits. [facility] Medical History (Updated 12/08/22 @ 16:[address] Jo-Ann Arias, ) Cerebrovascular disease Hemorrhoids High cholesterol HTN (hypertension) Mitral stenosis Pulmonary hypertension Stroke/cerebrovascular accident Home Medications atenolol 50 mg tablet 50 mg PO DAILY blood pressure 07/05/18 [History Last Taken 08/28/20] atorvastatin 10 mg tablet 10 mg PO QHS cholesterol 07/05/18 [History Last Taken 08/27/20] hydrochlorothiazide 25 mg tablet 25 mg PO DAILY BP 07/05/18 [History Last Taken 08/28/20] multivitamin 1 tablet PO DAILY supplement 08/12/20 [History Last Taken 08/28/20] ascorbic acid 100 mg-elderberry fruit 50 mg chewable tablet 1 each PO DAILY supplement 08/14/20 [History Last Taken 08/27/20] calcium carbonate 500 mg-vitamin D3 15 mcg (600 unit) tablet 2 each PO DAILY supplement 08/14/20 [History Last Taken 08/28/20] cholecalciferol (vitamin D3) 125 mcg (5,000 unit) capsule 125 mcg PO DAILY supplement 08/14/20 [History Last Taken 08/28/20] cyanocobalamin (vitamin B-12) 500 mcg chewable tablet 1,000 mcg PO DAILY supplement 08/14/20 [History Last Taken 08/27/20] acetaminophen 325 mg tablet (Tylenol) 650 mg PO Q4H PRN pain 12/06/22 [History Last Taken Unknown] ascorbic acid (vitamin C) 500 mg tablet (C-500) 500 mg PO DAILY@1200 vitamin 12/06/22 [History Last Taken Unknown] carvedilol 12.5 mg tablet (Coreg) 12.5 mg PO BIDCM heart 12/06/22 [History Last Taken Unknown] cephalexin 500 mg capsule 500 mg PO Q12H atb 12/06/22 [History Last Taken Unknown] doxazosin 2 mg tablet (Cardura) 2 mg PO QHS heart 12/06/22 [History Last Taken Unknown] ferrous sulfate 325 mg (65 mg iron) tablet (Loly-Time) 325 mg PO DAILY@1200 iron 12/06/22 [History Last Taken Unknown] linezolid 600 mg tablet 600 mg PO Q12H atb 12/06/22 [History Last Taken Unknown] polyethylene glycol 3350 17 gram oral powder packet (Miralax) 17 g PO DAILY constipation 12/06/22 [History Last Taken Unknown] selenium 200 mcg capsule 200 mcg PO DAILY vitamin 12/06/22 [History Last Taken Unknown] sodium chloride 1,000 mg soluble tablet 2,000 mg PO BID vitamin 12/06/22 [History Last Taken Unknown] zinc sulfate 50 mg zinc (220 mg) capsule (Orazinc) 220 mg PO DAILY vitamin 12/06/22 [History Last Taken Unknown] Allergy/AdvReac Type Severity Reaction Status Date / Time No Known Allergies Allergy Verified 07/31/21 17:01 Family History Father CVA (cerebral vascular accident) Heart disease Mother Diabetes Surgical History (Updated 12/08/22 @ 16:[address] Jo-Ann Arias DO) H/O craniotomy S/P bilateral breast reduction S/P carpal tunnel release S/P hysterectomy Status post hemorrhoidectomy (~08/19/20) Social History Smoking Status: Never smoker alcohol intake: never ROS Review of Systems ROS Unobtainable: Denies due to encephalopathy, due to endotracheal tube, due tomental condition or due to mental status Constitutional Constitutional: Reports fatigue and weakness; Denies anorexia, change in weight,chills, fever(s) or night sweats Eyes Eyes: Denies blurry vision, change in vision, eye pain or loss of vision ENT HEENT: Denies abnormal hearing, dysphagia, headache(s), hearing loss, nasal congestion or sore throat Cardiovascular Cardiovascular: Reports lightheadedness; Denies chest pain, dyspnea on exertion,edema, orthopnea, palpitations, paroxysmal nocturnal dyspnea or syncope Respiratory/Chest Respiratory/Chest: Denies cough, dyspnea, shortness of breath at rest, shortnessof breath with exertion or wheezing Gastrointestinal Gastrointestinal: Denies abdominal pain, constipation, diarrhea, dyspepsia, hematemesis, hematochezia, nausea or vomiting Genitourinary Genitourinary: Denies dysuria, hematuria, nocturia, urinary frequency, urinary hesitancy, urinary incontinence or urinary urgency Musculoskeletal Musculoskeletal: Denies back pain, joint pain, joint swelling or neck pain Neurologic Neurologic: Reports disequilibrium and other Details: has noticed some problems with her memory since the CVA ; Denies confusion, dizziness, focal weakness, headache(s), paresthesias, seizuresor tremor(s) Psychiatric Psychiatric: Denies anxiety, depression, homicidal ideation or suicidal ideation Endocrine Endocrinology: Denies change in body appearance, polydipsia or polyuria Hematologic/Lymphatic Hematologic/Lymphatic: Denies easy bleeding, easy bruising or lymphadenopathy Allergic/Immunologic Allergic/Immunologic: Denies rhinitis, eczemia or asthma Vital Signs Vital Signs Vital Signs: 12/06/22 19:07 12/06/22 22:55 12/06/22 22:00 Temperature 98.6 F 98.2 F Temperature Source Temporal Temporal Pulse Rate 79 95 Pulse Rate [Lying] Pulse Rate [Sitting (for 1 minute prior to obtaining)] Pulse Strength Normal (2+) Respiratory Rate 18 18 Respiratory Effort Respiratory Depth Respiratory Pattern Blood Pressure 128/47 H 124/55 H Blood Pressure [Lying] Blood Pressure [Sitting (for 1 minute prior to obtaining)] Blood Pressure Mean 74 78 Blood Pressure Mean [Lying] Blood Pressure Mean [Sitting (for 1 minute prior to obtaining)] Blood Pressure Source Monitor Monitor Blood Pressure Position Semi-Fowlers Semi-Fowlers Blood Pressure Location Left Arm Left Arm Pulse Ox 98 97 Oxygen Delivery Method Room Air Room Air 12/06/22 23:30 12/07/22 07:49 12/07/22 08:00 Temperature 97.9 F Temperature Source Temporal Pulse Rate 98 Pulse Rate [Lying] 92 Pulse Rate [Sitting (for 1 minute prior to obtaining)] 102 H Pulse Strength Respiratory Rate 17 Respiratory Effort Normal Non-Labored Respiratory Depth Normal Respiratory Pattern Normal Blood Pressure 132/53 H Blood Pressure [Lying] 157/61 H Blood Pressure [Sitting (for 1 minute prior to obtaining)] 169/64 H Blood Pressure Mean 79 Blood Pressure Mean [Lying] 93 Blood Pressure Mean [Sitting (for 1 minute prior to obtaining)] 99 Blood Pressure Source Monitor Blood Pressure Position Semi-Fowlers Blood Pressure Location Right Arm Pulse Ox 99 Oxygen Delivery Method Room Air Room Air Weight Weight: 134 lb 0.657 oz Body Mass Index (BMI) 29.0 Physical Exam Const alert and no apparent distress Constitutional Narrative: Lying in bed resting. No tachypnea and no labored breathing. She is pleasant and appropriate. General Appearance: cooperative and well kempt HEENT HEENT Narrative: Dry MM with thrush. Eyes EOMs intact bilaterally, conjunctivae normal and no scleral icterus Eyes Narrative: Discharge from the eyes and no mattering of the eyelashes. EOMI Neck supple General: normal visual inspection and trachea midline Chest Chest: symmetrical chest wall rise Resp normal respiratory effort, normal air movement and clear to auscultation bilaterally Effort and Inspection: able to speak in complete sentences Cardio regular rate, regular rhythm, S1 normal heart sound, S2 normal heart sound, no rub and no gallops Cardio Narrative: She has a systolic MM at the second RICS that radiates to the LLSB and apex. Also with a systolic MM in the Left axillary area. GI normal to inspection, nondistended, normoactive bowel sounds, soft to palpation and non-tender GI Narrative: No guarding with palpation no CVA tenderness Extremity no calf tenderness Extremity Narrative: She has edema of the LUE from an IV that infiltrated. Also had mild edema of both LE's. Skin General Skin Exam: no breakdown Rashes: no rashes Wound Narrative: The craniotomy incision is intact with no discharge, no magdaleno-incisional erythema. There is a raised area away from the incision that is soft to palpation and not tender. No fluctuance. Not warm to touch and not red. Neuro CN's II-XII intact bilaterally, moves all extremities, no focal motor deficits and no sensory deficits noted Neuro Narrative: Generalized weakness is severe with poor endurance. No visual field cuts. Psych cooperative, affect normal and speech normal Psych Narrative: Therapy mentions that patient is very fearful of falling and is hesitant to try things without 2 people present. Appearance: grossly normal Attitude: calm Activity / Motor Behavior: appropriate eye contact Speech: normal speech Results Lab / Micro Data 12/07/22 06:00 12/07/22 06:00 Labs: Laboratory Results - last 24 hr 12/06/22 22:13: POC Glucose 264 H 12/07/22 06:00: WBC 10.0, RBC 3.34 L, Hgb 10.1 L, Hct 29.7 L, MCV 88.9, MCH 30.2, MCHC 34.0, RDW Std Deviation 46.3 H, RDW Coeff of Marga 14.4, Plt Count 229,MPV 9.2, Sodium 133 L, Potassium 4.0, Chloride 104, Carbon Dioxide 28.0, Anion Gap 1 L, BUN 14, Creatinine 0.39 L, Estim Creat Clear Calc 43.78, Est GFR (MDRD)Af Amer 205, Est GFR (MDRD) Non-Af 170, BUN/Creatinine Ratio 36.1 H, Glucose 122H, Calcium 8.0 L, Phosphorus 3.2, Magnesium 1.7, Total Bilirubin 1.00, AST 16, ALT 23, Alkaline Phosphatase 74, Total Protein 4.8 L, Albumin 1.8 L, Globulin 3.0, Albumin/Globulin Ratio 0.6 L 12/07/22 06:26: POC Glucose 119 H Assessment & Plan Assessment/Plan (1) Physical debility: (2) Scalp lesion: PLAN: Due to meningioma with intraosseous extension. (3) H/O craniotomy: PLAN: 11/16/22 at [facility] (4) Ischemic cerebrovascular accident (CVA): PLAN: Several foci of acute infarct most notably involving the right thalamus and right cerebellar hemisphere but she also had a few other punctate foci in both cerebral hemispheres. 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 (5) Cerebrovascular disease: PLAN: Multiple areas of stenoses in the cerebral arteries. (6) Pulmonary hypertension: PLAN: Recent ECHO with PA systolic estimated at 48. (7) Mitral stenosis: QUALIFIERS: Cardiac valve disease etiology: nonrheumatic Qualified Code(s): I34.2 - Nonrheumatic mitral (valve) stenosis PLAN: Mild to moderate. (8) Acute blood loss anemia: (9) Hyponatremia: (10) Thrush: (11) C. difficile enteritis: PLAN: Reported by the previous hospital. PLAN: Plan PLAN PT for gait stability OT for ADL's ST for evaluation Analgesics as needed Bowel protocol Fall precautions Assess for Anxiety/Depression GI prophylaxis -not necessary at this time. Patient has no epigastric pain, nausea, vomiting or history of peptic ulcer disease. DVT prophylaxis with heparin 5000 units subcu every 12 hours Follow up with neurosurgeon, plastic surgeon and Dr. Venegas following DC from [facility] Rehab AM lab including CMP, CBC, Mag and Phos -personally reviewed 30 day event monitor at [facility] C. difficile toxin/antigen C. difficile PCR isolation until the results of the C Diff testing is available. heparin 5000 units subcu every 12 hours for DVT prophylaxis Low medium sliding insulin scale - she is not diabetic but, BS still elevated due to steroids she received at [facility]. Nystatin swish and swallow for thrush. She is third spacing fluid due to low Albumin and salt tabs. Consider giving 25of Albumin and 20 mg of Lasix if the edema does not resolve with increased movement. Mag is only 1.7 which is low normal however, she had probable embolic strokes inthe hospital post-op so would like to see the MAG at 2 so will order a supplement. Charges/Coding Visit Charges Inpatient E&M: 86474 Init Hosp L3 12/08/22 1632 <Electronically signed by Jo-Ann Arias DO> Cosigner Signature (if applicable): CC: Dr. Monika Venegas MD; Dr. Jo-Ann Arias DO~ Signed [facility] Work Phone: [phone]) [phone] History and physical note* Qian Randle MD - 10/08/2022 11:45 AM EDT History of Present Illness Ms. Mcguire is a 76 y.o. female is being evaluated in OPAC due to her medical condition(s) , which increases her risk for perioperative complications. Patient has hx of HYPERTENSION, HYPERLIPIDEMIA and Skull mass. Pt is accompanied by daughter Alexsandra. Name: Sarah Mcguire Date of Surgery: 10/13 Surgeon: Sanjiv Pre-Op Diagnosis: Skull mass Planned Procedure: BIOPSY OF LEFT FRONTOPARIETAL SKULL LESION Do you take Aspirin? no If so, why? Do you take anti-coagulations? If so, why? Type of anesthesia planned: General ANESTHESIA/AIRWAY Anesthesia alerts - PONV Personal history of problems related to anesthesia (ex.Malignant Hyperthermia): no Family History of problems related to anesthesia (ex.Malignant Hyperthermia: no Pacer/AICD: no Glaucoma: no Beta Joie: yes Diabetic Mellitus: no JENNIFER: no STOP-BANG Risk Assessment (3 or more YES responses is high risk) Do you snore - Yes Are you frequently tired during the day? - No Have you been observed gasping or choking while asleep? - No Do you have high blood pressure? - Yes Age more than 50? - Yes Gender male? - No Neck circumference greater than 40 cm? - No Neck Circumference (cm): 35 BMI more then 35? - No Body mass index is 27.31 kg/m . Mallampati class - 2 TM Distance - 3 FB Oral Opening - 3 FB Teeth - dentures Cervical range of motion - within normal limits Neck circumference - Neck Circumference (cm): 35 Allergies and adverse drug reactions No Known Allergies Anesthesia/Airway A/P - Pt denies hx of complication with previous anesthesia and/or airway. CARDIOVASCULAR Cardiovascular A/P - This patient is in a elevated risk category as calculated using the RCRI/NSQIP with 1 risk factors. RCRI score is 1 points placing him/her at a 6% cardiac risk in the perioperative setting Functional status - : moderate functional status. 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 1. HYPERTENSION- diangosed 6+yrs ago and has been controlled on current meds. BP Readings from Last 3 Encounters: 10/08/22 128/80 09/30/22 196/72 2. HYPERLIPIDEMIA - stable on statins for 6+ yrs. PLAN: No further cardiac testing needed. CARDIAC TESTING: EKG (10/08/2022): sinus bradycardia, HR:57, normal CA interval, no acute abnormality. PULMONARY Social History Tobacco Use Smoking Status Never Smokeless Tobacco Never Does the patient Vape? no Pulmonary A/P - Pt denies any active pulmonary complaints/concerns at this time. SUBSTANCE ABUSE Social History Substance and Sexual Activity Alcohol Use Yes Comment: socially once a year Social History Substance and Sexual Activity Drug Use Never Substance Abuse A/P - Pt denies any hx of substance abuse. CLOTTING/BLEEDING History of DVT/PE - no Are you a Jehovah Witness? - no In case of surgeons plan or unforseen emergency, are you okay with receiving blood products? - yes Clotting Bleeding A/P - Pt denies any hx of clotting/bleeding disorder. Recommend standard DVT/PE prophylaxis postoperatively. DIABETES Diabetes A/P - Pt has never been diagnosed with DM. No results found for: HGBA1C ADDITIONAL DIAGNOSES OF CONCERN MEDICATIONS Current Outpatient Medications Medication Sig Atenolol 50 MG tablet Take 2 tablets by mouth 2 times daily. 2 in the morning and two in the evening Atorvastatin 10 MG tablet Take 1 tablet by mouth at bedtime. Calcium Citrate-Vitamin D (CALCIUM CITRATE+D3 PO) Take by mouth daily every morning. Cholecalciferol (Vitamin D) 125 MCG (5000 UT) capsule Take by mouth daily every morning. Garlic (GARLIQUE PO) Take by mouth daily every morning. hydroCHLOROthiazide 25 MG tablet Take 1 tablet by mouth daily every morning. Multiple Vitamin (multivitamin) capsule Take 1 capsule by mouth daily every morning. Ovmyzqjgg-Llslmmrxxjl-Zzy D (OSTEO BI-FLEX ONE PER DAY PO) Take by mouth. (Patient not taking: Reported on 10/07/2022) Zinc 50 MG tablet Take by mouth. (Patient not taking: Reported on 10/08/2022) Medication A/P - Instructions for preoperative medications given to the patient in AVS. LABS Orders Placed This Encounter SCREEN: MRSA/MSSA XR CHEST PA AND LATERAL CBC, EDIF, PLATELET CHEM 7 (LYTES,BUN,CREA,GLUC) PROTIME-INR PTT WITH MIXING STUDY PTT W/MIXING STUDY PERF ONLY EXTRA LIGHT BLUE TOP DOUBLE SPIN CBC AND ELECTRONIC DIFF PREPARE TO TRANSFUSE OR RED BLOOD CELLS: 2 Units Type and Cross -Preadmission URINALYSIS REFLEX TO CULTURE URINALYSIS REFLEX TO CULTURE PERFORMABLE EXTRA MICRO CA ECG, CLINIC PERFORMED Lab A/P - Labs reviewed and CBC, PT/INR/PTT & Chem-6 (noted to have hypnatremia which seems chronic in nature, was 132 09/22/2022) noted in acceptable range for scheduled surgery. Lab Results Component Value Date WBC 10.02 10/08/2022 HGB 13.0 10/08/2022 HCT 38.0 10/08/2022 PLATELET 280 10/08/2022 MCV 86.2 10/08/2022 Lab Results Component Value Date SODIUM 128 (L) 10/08/2022 POTASSIUM 4.3 10/08/2022 CHLORIDE 93 (L) 10/08/2022 CO2 28 10/08/2022 BUN 15 10/08/2022 CREATSERUM 0.72 10/08/2022 GLUCOSE 106 (H) 10/08/2022 Lab Results Component Value Date PTT 28.7 10/08/2022 MRSA: UA: neg Chest xray (10/08/2022): IMPRESSION: No acute cardiopulmonary disease Does pt meet criteria for liberalized NPO? no. If no, why? ASA 3 or more Pt is Medically OPTIMIZED to proceed with scheduled surgery. Qian Randle MD [facility] [place] [address] [facility] Review of Systems (OSUROS) Review of Systems Constitutional: Negative for appetite change, chills, fatigue and fever. HENT: Negative for congestion, ear pain, hearing loss, nosebleeds, sinus pain, sore throat, tinnitus and trouble swallowing. Eyes: Negative for discharge and itching. Respiratory: Negative for cough, chest tightness and shortness of breath. Cardiovascular: Negative for chest pain, palpitations and leg swelling. Gastrointestinal: Negative for abdominal pain, constipation, diarrhea, nausea and vomiting. Genitourinary: Negative for difficulty urinating, dysuria, enuresis, hematuria and urgency. Musculoskeletal: Negative for back pain, myalgias and neck pain. Skin: Negative for color change and rash. Neurological: Negative for dizziness, speech difficulty, numbness and headaches. Psychiatric/Behavioral: Negative for agitation, behavioral problems, decreased concentration and sleep disturbance. The patient is nervous/anxious. Physical Examination ([facility]) Blood pressure 128/80, pulse 55, temperature 98.4 F (36.9 C), temperature source Temporal, resp. rate 16, height 1.422 m (4' 8), weight 55.2 kg (121 lb 12.8 oz), SpO2 99 %. Physical Exam Constitutional: General: She is not in acute distress. Appearance: Normal appearance. She is well-developed and normal weight. She is not ill-appearing, toxic-appearing or diaphoretic. HENT: Head: Normocephalic and atraumatic. Right Ear: Tympanic membrane and external ear normal. Left Ear: Tympanic membrane and external ear normal. Nose: Nose normal. No congestion or rhinorrhea. Mouth/Throat: Mouth: Mucous membranes are moist. Pharynx: Oropharynx is clear. Eyes: Extraocular Movements: Extraocular movements intact. Conjunctiva/sclera: Conjunctivae normal. Pupils: Pupils are equal, round, and reactive to light. Cardiovascular: Rate and Rhythm: Normal rate and regular rhythm. Pulses: Normal pulses. Heart sounds: Normal heart sounds. No murmur heard. No friction rub. Pulmonary: Effort: Pulmonary effort is normal. No respiratory distress. Breath sounds: Normal breath sounds. No stridor. No wheezing or rhonchi. Abdominal: General: Abdomen is flat. Bowel sounds are normal. There is no distension. Palpations: Abdomen is soft. There is no mass. Tenderness: There is no abdominal tenderness. Hernia: No hernia is present. Musculoskeletal: General: No swelling, tenderness, deformity or signs of injury. Normal range of motion. Cervical back: Normal range of motion and neck supple. No rigidity. No muscular tenderness. Skin: General: Skin is warm. Coloration: Skin is not jaundiced or pale. Findings: No bruising or erythema. Neurological: General: No focal deficit present. Mental Status: She is alert and oriented to person, place, and time. Mental status is at baseline. Cranial Nerves: No cranial nerve deficit. Sensory: No sensory deficit. Motor: No weakness. Coordination: Coordination normal. Psychiatric: Mood and Affect: Mood normal. Behavior: Behavior normal. Thought Content: Thought content normal. Judgment: Judgment normal. 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 Mcguire is a 76 y.o. female is being evaluated in OPAC due to her medical condition(s) , which increases her risk for perioperative complications. Patient has hx of HYPERTENSION, HYPERLIPIDEMIA and Skull mass. Pt is accompanied by daughter Alexsandra. Name: Sarah Mcguire Date of Surgery: 10/13 Surgeon: Sanjiv Pre-Op Diagnosis: Skull mass Planned Procedure: BIOPSY OF LEFT FRONTOPARIETAL SKULL LESION Do you take Aspirin? no If so, why? Do you take anti-coagulations? If so, why? Type of anesthesia planned: General ANESTHESIA/AIRWAY Anesthesia alerts - PONV Personal history of problems related to anesthesia (ex.Malignant Hyperthermia): no Family History of problems related to anesthesia (ex.Malignant Hyperthermia: no Pacer/AICD: no Glaucoma: no Beta Joie: yes Diabetic Mellitus: no JENNIFER: no STOP-BANG Risk Assessment (3 or more YES responses is high risk) Do you snore - Yes Are you frequently tired during the day? - No Have you been observed gasping or choking while asleep? - No Do you have high blood pressure? - Yes Age more than 50? - Yes Gender male? - No Neck circumference greater than 40 cm? - No Neck Circumference (cm): 35 BMI more then 35? - No Body mass index is 27.31 kg/m . Mallampati class - 2 TM Distance - 3 FB Oral Opening - 3 FB Teeth - dentures Cervical range of motion - within normal limits Neck circumference - Neck Circumference (cm): 35 Allergies and adverse drug reactions No Known Allergies Anesthesia/Airway A/P - Pt denies hx of complication with previous anesthesia and/or airway. CARDIOVASCULAR Cardiovascular A/P - This patient is in a elevated risk category as calculated using the RCRI/NSQIP with 1 risk factors. RCRI score is 1 points placing him/her at a 6% cardiac risk in the perioperative setting Functional status - : moderate functional status. 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 1. HYPERTENSION- diangosed 6+yrs ago and has been controlled on current meds. BP Readings from Last 3 Encounters: 10/08/22 128/80 09/30/22 196/72 2. HYPERLIPIDEMIA - stable on statins for 6+ yrs. PLAN: No further cardiac testing needed. CARDIAC TESTING: EKG (10/08/2022): sinus bradycardia, HR:57, normal CA interval, no acute abnormality. PULMONARY Social History Tobacco Use Smoking Status Never Smokeless Tobacco Never Does the patient Vape? no Pulmonary A/P - Pt denies any active pulmonary complaints/concerns at this time. SUBSTANCE ABUSE Social History Substance and Sexual Activity Alcohol Use Yes Comment: socially once a year Social History Substance and Sexual Activity Drug Use Never Substance Abuse A/P - Pt denies any hx of substance abuse. CLOTTING/BLEEDING History of DVT/PE - no Are you a Jehovah Witness? - no In case of surgeons plan or unforseen emergency, are you okay with receiving blood products? - yes Clotting Bleeding A/P - Pt denies any hx of clotting/bleeding disorder. Recommend standard DVT/PE prophylaxis postoperatively. DIABETES Diabetes A/P - Pt has never been diagnosed with DM. No results found for: HGBA1C ADDITIONAL DIAGNOSES OF CONCERN MEDICATIONS Current Outpatient Medications Medication Sig Atenolol 50 MG tablet Take 2 tablets by mouth 2 times daily. 2 in the morning and two in the evening Atorvastatin 10 MG tablet Take 1 tablet by mouth at bedtime. Calcium Citrate-Vitamin D (CALCIUM CITRATE+D3 PO) Take by mouth daily every morning. Cholecalciferol (Vitamin D) 125 MCG (5000 UT) capsule Take by mouth daily every morning. Garlic (GARLIQUE PO) Take by mouth daily every morning. hydroCHLOROthiazide 25 MG tablet Take 1 tablet by mouth daily every morning. Multiple Vitamin (multivitamin) capsule Take 1 capsule by mouth daily every morning. Nkbzpyldr-Crenywgzfbr-Ckd D (OSTEO BI-FLEX ONE PER DAY PO) Take by mouth. (Patient not taking: Reported on 10/07/2022) Zinc 50 MG tablet Take by mouth. (Patient not taking: Reported on 10/08/2022) Medication A/P - Instructions for preoperative medications given to the patient in AVS. LABS Orders Placed This Encounter SCREEN: MRSA/MSSA XR CHEST PA AND LATERAL CBC, EDIF, PLATELET CHEM 7 (LYTES,BUN,CREA,GLUC) PROTIME-INR PTT WITH MIXING STUDY PTT W/MIXING STUDY PERF ONLY EXTRA LIGHT BLUE TOP DOUBLE SPIN CBC AND ELECTRONIC DIFF PREPARE TO TRANSFUSE OR RED BLOOD CELLS: 2 Units Type and Cross -Preadmission URINALYSIS REFLEX TO CULTURE URINALYSIS REFLEX TO CULTURE PERFORMABLE EXTRA MICRO CA ECG, CLINIC PERFORMED Lab A/P - Labs reviewed and CBC, PT/INR/PTT & Chem-6 (noted to have hypnatremia which seems chronic in nature, was 132 09/22/2022) noted in acceptable range for scheduled surgery. Lab Results Component Value Date WBC 10.02 10/08/2022 HGB 13.0 10/08/2022 HCT 38.0 10/08/2022 PLATELET 280 10/08/2022 MCV 86.2 10/08/2022 Lab Results Component Value Date SODIUM 128 (L) 10/08/2022 POTASSIUM 4.3 10/08/2022 CHLORIDE 93 (L) 10/08/2022 CO2 28 10/08/2022 BUN 15 10/08/2022 CREATSERUM 0.72 10/08/2022 GLUCOSE 106 (H) 10/08/2022 Lab Results Component Value Date PTT 28.7 10/08/2022 MRSA: UA: neg Chest xray (10/08/2022): IMPRESSION: No acute cardiopulmonary disease Does pt meet criteria for liberalized NPO? no. If no, why? ASA 3 or more Pt is Medically OPTIMIZED to proceed with scheduled surgery. Qian Randle MD [facility] Perioperative Clinic [facility] [address] [facility] Review of Systems (OSUROS) Review of Systems Constitutional: Negative for appetite change, chills, fatigue and fever. HENT: Negative for congestion, ear pain, hearing loss, nosebleeds, sinus pain, sore throat, tinnitus and trouble swallowing. Eyes: Negative for discharge and itching. Respiratory: Negative for cough, chest tightness and shortness of breath. Cardiovascular: Negative for chest pain, palpitations and leg swelling. Gastrointestinal: Negative for abdominal pain, constipation, diarrhea, nausea and vomiting. Genitourinary: Negative for difficulty urinating, dysuria, enuresis, hematuria and urgency. Musculoskeletal: Negative for back pain, myalgias and neck pain. Skin: Negative for color change and rash. Neurological: Negative for dizziness, speech difficulty, numbness and headaches. Psychiatric/Behavioral: Negative for agitation, behavioral problems, decreased concentration and sleep disturbance. The patient is nervous/anxious. Physical Examination ([facility]SEXAM) Blood pressure 128/80, pulse 55, temperature 98.4 F (36.9 C), temperature source Temporal, resp. rate 16, height 1.422 m (4' 8), weight 55.2 kg (121 lb 12.8 oz), SpO2 99 %. Physical Exam Constitutional: General: She is not in acute distress. Appearance: Normal appearance. She is well-developed and normal weight. She is not ill-appearing, toxic-appearing or diaphoretic. HENT: Head: Normocephalic and atraumatic. Right Ear: Tympanic membrane and external ear normal. Left Ear: Tympanic membrane and external ear normal. Nose: Nose normal. No congestion or rhinorrhea. Mouth/Throat: Mouth: Mucous membranes are moist. Pharynx: Oropharynx is clear. Eyes: Extraocular Movements: Extraocular movements intact. Conjunctiva/sclera: Conjunctivae normal. Pupils: Pupils are equal, round, and reactive to light. Cardiovascular: Rate and Rhythm: Normal rate and regular rhythm. Pulses: Normal pulses. Heart sounds: Normal heart sounds. No murmur heard. No friction rub. Pulmonary: Effort: Pulmonary effort is normal. No respiratory distress. Breath sounds: Normal breath sounds. No stridor. No wheezing or rhonchi. Abdominal: General: Abdomen is flat. Bowel sounds are normal. There is no distension. Palpations: Abdomen is soft. There is no mass. Tenderness: There is no abdominal tenderness. Hernia: No hernia is present. Musculoskeletal: General: No swelling, tenderness, deformity or signs of injury. Normal range of motion. Cervical back: Normal range of motion and neck supple. No rigidity. No muscular tenderness. Skin: General: Skin is warm. Coloration: Skin is not jaundiced or pale. Findings: No bruising or erythema. Neurological: General: No focal deficit present. Mental Status: She is alert and oriented to person, place, and time. Mental status is at baseline. Cranial Nerves: No cranial nerve deficit. Sensory: No sensory deficit. Motor: No weakness. Coordination: Coordination normal. Psychiatric: Mood and Affect: Mood normal. Behavior: Behavior normal. Thought Content: Thought content normal. Judgment: Judgment normal. 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 Do not take any of your other medications on the morning of surgery. Current Outpatient Medications Medication Sig Last Dose Atenolol 50 MG tablet 100 mg, Oral, 2 TIMES DAILY, 2 in the morning and two in the evening Taking Take day of the surgery. Atorvastatin 10 MG tablet 10 mg, Oral, DAILY AT BEDTIME Taking Take night prior to the surgery. Calcium Citrate-Vitamin D (CALCIUM CITRATE+D3 PO) Oral, DAILY EVERY MORNING Taking Do not take day of the surgery. Cholecalciferol (Vitamin D) 125 MCG (5000 UT) capsule Oral, DAILY EVERY MORNING Taking Do not take day of the surgery. Garlic (GARLIQUE PO) Oral, DAILY EVERY MORNING Taking Hold 2 weeks prior to the surgery. hydroCHLOROthiazide 25 MG tablet 25 mg, Oral, DAILY EVERY MORNING Taking Do not take day of the surgery. Multiple Vitamin (multivitamin) capsule 1 capsule, Oral, DAILY EVERY MORNING Taking Hold 2 weeks prior to the surgery. If you use an Inhaler/Inhalers on a daily basis, then use your inhaler on the morning of surgery. - Do NOT take Herbal Medication (including multi-vitamin, fish oil ([place]-3), garlic, Glucosamine -Chondroitin ,gingko, ginseng, Vitamin E, probiotics) vitamins and supplements 2 weeks before surgery. - Do NOT take Excedrin, ibuprofen, Advil, Voltaren (Diclofenac), Motrin, naproxen, or Aleve, Mobic (Meloxicam) for the 7-14 days before surgery. Acetaminophen (Tylenol) is ok to take up until the dayof surgery. DO not Vape 24 hrs prior to the surgery. Patient Pre-Operative Instructions: Diet Instructions: Does pt meet criteria for liberalized NPO? no. If no, why? ASA 3 or more -NO food or drink after 11 pm the night before surgery except for enough water to take your medications. (No Candy, Mints and/or Gum) - Do NOT wear any hearing aids, jewelry, watches, rings, hairpieces, makeup, glasses or contact lenses with you into your surgery. - Shower the night before and the morning of surgery. - Do NOT shave, or pluck hair from anywhere near the surgical site one week prior to surgery. - [place] your teeth and rinse your mouth the morning of surgery. - Do NOT bring your dentures or partials with you into surgery. They may be lost. Give them to someone to bring to you after surgery. If you become ill, develop a fever, cough, or any type of infection within 14 days of your scheduled surgery, please call the surgeon's office. You may need to have your surgery moved, as we would not want to put you at risk for complications due to an illness. If you are placed on Antibiotics within 1 week of surgery, please notify our team immediately. To lessen your chance of getting an infection after your surgery, you will need to wash your skin with a special soap called 4% Chlorhexidine Gluconate (CHG) before your surgery. Your nurse has givenyou CHG soap today and written instructions; Getting Your Skin Ready for Surgery. Please review the instructions carefully prior to your surgery. Today we completed a nasal swab culture to check for a specific bacteria called MRSA or MSSA. This is a bacteria that can live in the nose and cause no symptoms or illness. If your culture is positive, we will contact you and send in a prescription for mupirocin to your pharmacy. You will be instructed to rub the ointment into each of your nostrils twice a day for 5 days prior to your surgery. Your nurse will also swab your nose with a betadine swab in the preoperative area on your day of surgery. Please notify the nurse if you have an iodine allergy. - If you have Sleep apnea and have a CPAP or BIPAP, then bring your CPAP mask and machine with you to the hospital. Please contact Medical Information Management Department for all records requests. [phone] [phone] AVS/RF documented in this [place]04-27-2023 History of Present illness Narrative* Emily Veras RN - 09/30/2022 12:00 PM EDT Nurse Note: Review of Systems Constitutional: Positive for fatigue. Negative for chills and fever. HENT: Positive for tinnitus (history ). Negative for hearing loss. Eyes: Negative for visual disturbance. Respiratory: Negative for cough and shortness of breath. Cardiovascular: Negative for chest pain and leg swelling. Gastrointestinal: Negative for constipation, diarrhea, nausea and vomiting. Genitourinary: Negative for difficulty urinating. Musculoskeletal: Positive for back pain (shot down to left leg). Negative for neck pain. Skin: Negative for rash. Neurological: Positive for dizziness (intermittent ), numbness (and tingling left hand ) and headaches. Negative for tremors, seizures, speech difficulty, weakness and light-headedness. Psychiatric/Behavioral: Negative for confusion, decreased concentration and hallucinations. Nursing Assessment: Physical Exam * Shaye Weston, AMBULANCE ASSISTANT-[employer]ER - 09/30/2022 12:00 PM EDT Images from the original note were not included. [facility] Dr. Ernie Kincaid MD Professor, Department of Neurosurgery Director of Neurosurgical Oncology [facility] and [place] [address] NEW PATIENT VISIT NOTES IEnoc Mcguire is a 76 y.o. female with PMH of HTN, HDL, no cancer history who was recently diagnosed with a Left frontotemporal skull lesion that presents to [facility] for consultation. Pt felt an irregular structure on the left side of her head few weeks ago. She told her PCP, who sent her to a local general surgeon. CT scan showed a 5.2 x 3.4 x 2.9 cm enhancing mass in the scalp overlying the left frontoparietal bone with the underlying bone destruction. In addition, there is evidence of the mass into the extra- axial space overlying the left frontoparietal lobes. 09/30/22: New patient visit. Pt presents to the clinic with her daughter. Pt reports doing well overall. She is very anxious due to the unknown pathology of her recently found large skull mass. Pt endorses occasional headaches, which have not changed. Pt denies numbness, weakness, paresthesias, altered ambulation, change in vision, difficulty swallowing, change in speech, change in bowel/bladder habits, or other focal neurologic deficits. II. PAST MEDICAL / SURGICAL HISTORY Past Medical History: Diagnosis Date High blood cholesterol HTN (hypertension) Past Surgical History: Procedure Laterality Date BREAST REDUCTION 1996 BREAST LUMPECTOMY Bilateral HEMORRHOIDECTOMY HYSTERECTOMY Social History Socioeconomic History Marital status: Spouse name: Not on file Number of children: Not on file Years of education: Not on file Highest education level: Not on file Occupational History Not on file Tobacco Use Smoking status: Not on file Smokeless tobacco: Not on file Substance and Sexual Activity Alcohol use: Not on file Drug use: Not on file Sexual activity: Not on file Other Topics Concern Not on file Social History Narrative Not on file Social Determinants of Health Financial Resource Strain: Not on file Food Insecurity: Not on file Transportation Needs: Not on file Physical Activity: Not on file Stress: Not on file Social Connections: Not on file Intimate Partner Violence: Not on file Housing Stability: Not on file No family history on file. III. ALLERGIES/ MEDICATIONS ALLERGIES: Patient has no known allergies. MEDICATIONS: Current Outpatient Medications Medication Sig Atenolol 50 MG tablet Take 1 tablet by mouth 2 times daily. Atorvastatin 10 MG tablet Take 1 tablet by mouth daily. Dypkjnwvb-Noymsenbnzc-Ble D (OSTEO BI-FLEX ONE PER DAY PO) Take by mouth. Calcium Citrate-Vitamin D (CALCIUM CITRATE+D3 PO) Take by mouth. Cholecalciferol (Vitamin D) 125 MCG (5000 UT) capsule Take by mouth. Garlic (GARLIQUE PO) Take by mouth. hydroCHLOROthiazide 25 MG tablet Take 1 tablet by mouth daily. Multiple Vitamin (multivitamin) capsule Take 1 capsule by mouth daily. Zinc 50 MG tablet Take by mouth. IV. IMAGING CT HEAD WITHOUT CONTRAST 09/23/22 . CURRENT CLINIC VISIT FINDINGS, EVALUATION, AND PLAN OF CARE REVIEW OF SYSTEMS: Review of Systems Constitutional: Negative for chills, diaphoresis, fatigue and fever. Musculoskeletal: Negative for gait problem. Neurological: Negative for dizziness, extremity weakness, gait problem, headaches, light-headedness, numbness, seizures and speech difficulty. All other systems reviewed and are negative. ASSESSMENT AND PHYSICAL EXAM: BP (!) 214/88 Pulse 62 Temp 99.4 F (37.4 C) Resp 16 Ht 1.422 m (4' 8) Wt 54.6 kg (120 lb4.8 oz) SpO2 96% BMI 26.97 kg/m See Dr. Kincaid's note. IMPRESSION AND PLAN OF CARE: Sarah Mcguire is a 76 y.o. 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 Patient seen and evaluated by myself and Dr. Kincaid, all relevant imaging reviewed. Patient denies new neurological symptoms. Imaging reviewed w/ patient. Pt is asymptomatic from this. No indication for neurosur gical intervention at this time. From a neurosurgery standpoint, we recommend an urgent systemic workup, given that patient has no known cancer history. Will order CT CAP and refer to the [facility]. We will see patient once a diagnosis is established or if a biopsy of skull lesion is recommended. Neurosurgery recommendations and plan were discussed with MIRELA at the [facility]. Patient advised to call with new or worsening neurological symptoms. Patient agrees with the plan. Plan: CT CAP with contrast STAT Referral to [facility] RTC after dx is established or if bx is needed to establish dx * Ernie Kincaid MD - 09/30/2022 12:00 PM EDT I saw and examined Sarah Mcguire today with my MIRELA, Shaye Weston. Sarah Mcguire is a 76 y.o. female with history of newly diagnosed skull tumor. She was referred for surgical opinion. I agree with the history of present illness, past medical history, family history, social history, medication list, allergies listed, and current complaints. I have personally reviewed all labs and radiographs as well as medical records and I confirm the findings noted above. I agree with the assessment and plan as noted above. Awake, alert ox4 eomfull tml fs ma4e 5/5 Palpable mass left frontal, non tender, no erythema The imaging reviewed today includes: CT: mass involving left frontal bone and epidural and subgaleal spaces with mass effect on underlying brain and overlying scalp At this time, I feel we should proceed with systemic workup. She may require biopsy versus resection of the skull tumor if systemic workup does not yield a diagnosis or if the tumor progresses and the mass effect on the brain increases. I discussed with the patient that risks of skull tumor surgerymay include bleeding, infection, pneumonia, heart complications, blood clots, post operative pain, neurological deficit, and . The patient is aware of these risks. All questions answered. I willalso order MRI brain. The plan was developed mutually at the time of the clinic visit. The nurse practitioner/physician assistant curator and I have spoken with the patient and provided written and verbal instructions for the patient. The above note has been reviewed and I agree with the assessment and plan. Ernie Kincaid MD [facility] Instructions* Patient Instructions* Hansa Nice RN - 09/30/2022 12:00 PM EDT We are here to assist you through your care at [facility]! Your Care Team from today's visit included: Neurosurgeon- Dr. Ramakrishna Kincaid Nurse Practitioner- Shaye Weston APRN-[employer] Primary Nurse - ROSETTA Hall, RN The Neurosurgery clinic and scheduling staff can be reached at [phone]. Please call if you develop new or worsening symptoms, also with any additional questions regarding your visit today or if you need to contact the doctor. You will speak with a skein dyer, who will take a message and forward it to the clinical team. The primary nurse will return your call within 24 hours, assess your problem, consult with your medical team, and give direction on what should be done. We are not able to accommodate walk-in appointments. This is to provide the best possible care we can to all our patients. For any questions, comments, or concerns during after-hours (past 4:00pm M-F), weekends, and/or during a holiday please call [phone] and speak with the after-hours service. You will be connectedto the neurosurgery resident conversion developer. New or worsening neurological symptoms can include, but are not limited to: weakness, confusion, difficulty walking, vision/hearing/speech changes, seizures or extremity tremors, and persistent headaches. If it is an emergency you will need to go to your local ER. Ask them to fax your records to us so that we can update our team, fax number [phone]. If you experience seizures affecting the whole body, with or with out loss of consciousness, or stroke like symptoms please call 911 and get evaluated at local Emergency Room. The neurosurgery team typically does not refill medications. Please reach out to your primary care physician for any post-hospital or post- surgical medication refill requests. Family Medical Leave paperwork is available through your human resources department. Please allow 10-14 business days for completion of paperwork from our office. Documentation can be faxed to [phone]. Your feedback is important to our team. You may receive a survey in the mail following today's appointment. We would appreciate if you could take a few minutes to complete the survey and return it inthe envelope provided. Your response will be confidential and used to enhance patient care and address areas of opportunity. Thank you The Oncology Distress Screening, or Patient-Reported Outcomes Measurement Information System (PROMIS) questionnaire, is a validated tool used for recording self-reported measures of global, physical,mental and social health for adults in the general population and those living with a chronic condition. You will receive this questionnaire via Telepartner. Please complete so your providers at [facility] can better help you! documented in this encounterOS[facility] CenterDischarge summary Author Hayden Sadler [facility] Note Date/Time September 27, 2024 1:3 0pm [facility] Medical Records Department [address] [place] [address] Emergency Department Summary 09/27/24 MR#: [id number] Acct: [id number] Name: SARAH MCGUIRE Rep #:[id number] : 1945 78 From: Hayden Sadler DO PCP: Dr. Monika Venegas MD Status:REG ER Location: ED HPI History of Present Illness Chief Complaint: Chest Pain Narrative Narrative: Patient is a 78-year-old female with past medical history hypertension, hypercholesteremia, CVA, pulmonary hypertension, mitral stenosis, intracranial hemorrhage status post craniotomy who presents to the emergency department the chief complaint of chest pain. Patient states that around 730 this morning shenoted that she had discomfort in the left side of her chest which ultimately shestates that this felt different than her normal pain. States that ever since her surgery and from the ride from [facility] to [place] and December 2022 she notedthat she has had some numbness and tingling periodically in her left arm but today this felt different therefore her daughter brought her here for further evaluation management. She states that she was sitting eating breakfast when this occurred. Patient states that she is anxious about her symptoms. She states that she is on Eliquis. [facility] Medical History Mitral valve stenosis, non-rheumatic Cerebrovascular disease Mitral stenosis Pulmonary hypertension Stroke/cerebrovascular accident Scalp lesion Hemorrhoids High cholesterol HTN (hypertension) Home Medications ?Medication ?Instructions ?Recorded ?Last Taken ?Type multivitamin 1 tablet PO DAILY supplement 08/12/20 12/24/22 10:00 History cholecalciferol (vitamin D3) 125 125 mcg PO DAILY supp lement 08/14/20 12/24/22 08:00 History mcg (5,000 unit) capsule cyanocobalamin (vitamin B-12) 500 1,000 mcg PO DAILY s upplement 08/14/20 12/24/22 10:00 History mcg chewable tablet zinc sulfate 50 mg zinc (220 mg) 220 mg PO DAILY vitam in 12/06/22 12/24/22 10:00 History capsule (Orazinc) amiodarone 200 mg tablet 200 mg PO DAILY #90 TABLETS 12/12/23 09/27/24 Rx atorvastatin 10 mg tablet 10 mg PO QHS for cholesterol #90 12/12/23 09/26/24 Rx TABLETS carvedilol 12.5 mg tablet 12.5 mg PO BID #180 TABLETS 12/12/23 09/27/24 Rx doxazosin 2 mg tablet 2 mg PO QHS #90 TABLETS 07/0 01/2709/26/24 Rx apixaban 2.5 mg tablet 2.5 mg PO BID called to Disc ount 08/13/24 09/27/24 Rx [facility]180 tabs acetaminophen 650 mg 1,300 mg PO Q8H PRN pain Unknown History tablet,extended release (8 Hour Pain Reliever) garlic extract 1 tab PO DAILY supplement Unknown History spironolactone 25 mg tablet 25 mg PO DAILY 09/27/24 History Allergy/AdvReac Type Severity Reaction Status Date / Time No Known Allergies Allergy Verified 09/27/24 09:20 Family History Father CVA (cerebral vascular accident) Heart disease Mother Diabetes Surgical History H/O craniotomy Status post hemorrhoidectomy (~08/19/20) S/P carpal tunnel release S/P bilateral breast reduction S/P hysterectomy Social History current occupational status: retired Smoking Status: Never smoker alcohol intake: never ROS ROS ED ROS Narrative Constitutional: Denies fever, chills, headaches, lightness, dizziness Eyes: Denies change in vision double vision blurry vision Cardiovascular: Complains of chest discomfort as noted above denies palpitations Respiratory: Denies shortness of breath, coughing Abdomen: Denies abdominal pain nausea vomit diarrhea : Denies urinary symptoms Neurological: Complains of chronic numbness tingling in the left upper extremityas noted above denies any new numbness, weakness or tingling Musculoskeletal: Denies back pain Skin: Denies any rashes or lesions EXAM Physical Exam Narrative Exam Narrative: General: Patient was lying in bed rest comfortably did not appear to be in acutedistress Head: Atraumatic, normocephalic Eyes: PERRL bilaterally, EOMI bilaterally, no conjunctival injection noted Neck: Soft, supple, trachea midline Cardiovascular: Patient bradycardic with a regular rhythm Respiratory: Clear to auscultation bilaterally Abdomen: Soft, nondistended, nontender to palpation Extremities: Radial pulses +2/4 in the bilateral extremities, +5/5 strength noted in the bilateral upper and lower extremities Neurological: Patient follow commands knew that she was at [facility] 2024 Skin: Warm, dry, intact Const Vital Signs: 09/27/24 09:20 09/27/24 09:23 09/27/24 09:31 Temperature 98 F Temperature Source Oral Pulse Rate 55 L Respiratory Rate 25 H Blood Pressure 178/43 H Blood Pressure Mean 88 Pulse Ox 98 Oxygen Delivery Method Room Air 09/27/24 10:24 09/27/24 11:00 09/27/24 12:00 Temperature Temperature Source Pulse Rate 51 L 50 L 49 L Respiratory Rate 18 14 15 Blood Pressure 176/53 H 191/66 H Blood Pressure Mean 94 107 Pulse Ox 99 96 98 Oxygen Delivery Method 09/27/24 13:05 Temperature Temperature Source Pulse Rate 51 L Respiratory Rate 16 Blood Pressure 180/64 H Blood Pressure Mean 102 Pulse Ox 98 Oxygen Delivery Method MDM MDM MDM Narrative Medical decision making narrative: Patient is a 78-year-old female who presented to the emergency department with chief complaint of chest discomfort. On the differential diagnose includes but not limited to ACS, pneumonia, pneumothorax, anxiety. Once workup is obtained reviewed she will be reevaluated. Patient CBC reviewed and was largely unremarkable no evidence of leukocytosis white blood count normal at 6.5, hemoglobin is 11, platelet count was noted to be normal at 219. Patient INR normal at 1.1, PT of 14.8. Patient's sodium was noted to be low at 128 indicating hyponatremia however according to previous blood draw she is chronically hyponatremic this is her baseline, creatinine normal at 0.97. Patient's troponin was noted be 16 with a delta troponin of 14. Patient's EKG was reviewed which showed sinus bradycardia. Patient chest x-rayreviewed by myself and by radiology showed no acute cardiopulmonary processes. Did discuss his case with on-call team lead Dr. Calderon who states that she canfollow-up in the outpatient setting. Did discuss results with the patient and family member bedside. She would like to go home at this point in time and is feeling better. Family bedside states that she has a doctor's appointment tomorrow and she was advised to follow-up atthat appointment which is with her primary care physician. She is encouraged return with worsening symptoms or concerns. They are agreeable to this plan allquestion concerns answered she was discharged home in stable condition. Lab Data Labs: Laboratory Results - last 24 hr 09/27/24 09:24 WBC 6.5 RBC 3.39 L Hgb 11.0 L Hct 31.3 L MCV 92.3 MCH 32.4 H MCHC 35.1 RDW Std Deviation 46.5 H RDW Coeff of Marga 13.8 Plt Count 219 MPV 9.9 Immature Gran % (Auto) 0.800 Neut % (Auto) 78.7 H Lymph % (Auto) 10.[address] [place] % (Auto) 8.3 Eos % (Auto) 1.1 Baso % (Auto) 0.3 Absolute Neuts (auto) 5.1 Absolute Lymphs (auto) 0.70 L Nucleated RBC % 0 PT 14.8 INR 1.1 APTT 32.4 Sodium 128 L Potassium 4.6 Chloride 95 L Carbon Dioxide 22.8 Anion Gap 10 BUN 23 H Creatinine 0.97 Estim Creat Clear Calc 33.23 L Est GFR (MDRD) Non-Af 59 L BUN/Creatinine Ratio 23.3 H Glucose 160 H Calcium 9.3 Troponin T High Sens 16 H Troponin T Hi Sens 2 Hr 14 Radiography Diagnostic Testing: Clinical Impression(s) from Imaging Studies Chest X-Ray 09/27/24 09:50 IMPRESSION: No acute abnormality is seen. Reading Location: [place] [address] Discharge Plan Triage Chief Complaint: Chest Pain ED Provider: Hayden Sadler Dx/Rx/DC Orders Clinical Impression: Chest pain Prescriptions: No Action multivitamin Tablet 1 tablet PO DAILY cyanocobalamin (vitamin B-12) 500 MCG tablet,chewable 1,000 mcg PO DAILY cholecalciferol (vitamin D3) 125 MCG capsule 125 mcg PO DAILY zinc sulfate [Orazinc] 50 mg zinc (220 mg) capsule 220 mg PO DAILY acetaminophen [8 Hour Pain Reliever] 650 mg tablet extended release 1,300 mg PO Q8H PRN (Reason: pain) spironolactone 25 mg tablet 25 mg PO DAILY garlic extract 1 tab PO DAILY atorvastatin 10 mg tablet 10 mg PO QHS Qty: 90 3RF amiodarone 200 mg tablet 200 mg PO DAILY Qty: 90 3RF doxazosin 2 mg tablet 2 mg PO QHS Qty: 90 3RF carvedilol 12.5 mg tablet 12.5 mg PO BID Qty: 180 3RF apixaban 2.5 mg tablet 2.5 mg PO BID Qty: 180 4RF Primary Care Provider: Monika Venegas Referrals: Monika Venegas MD [Primary Care Provider] - Activity Restrictions/Additional Instructions: Follow-up with your primary care physician at your scheduled appointment tomorrow. Return with worsening symptoms or any other concerns. Print Language: Amharic Disposition Disposition: Home, Self Care What to do if you have Problems For any increased pain, shortness of breath, bleeding, nausea or vomiting, chestpain, or any unexpected problems, contact your Primary Care Provider. Call [facility] ([phone]) or report to the closest Emergency Room. Call 911 if necessary. 09/27/24 1330 <Electronically signed by Hayden Sadler DO> Leonardoigner Signature (if applicable): CC: Dr. Monika Venegas MD ~ Signed [facility] Work Phone: Evaluation noteNo assessment information available [facility] Work Phone: Evaluation note* Diagnosis Onset Date Resolution Status Scalp lesion chronic Scalp lesion chronic [facility] Work Phone: Evaluation note* Diagnosis Skull mass- Primary Disorder of bone and cartilage, unspecified [facility] encounter [facility]* Diagnosis Preop exam for internal medicine Other specified pre-operative examination Skull mass Disorder of bone and cartilage, unspecified Essential hypertension Unspecified essential hypertension Hyperlipidemia, unspecified hyperlipidemia type Skull lesion Disorder of bone and cartilage, unspecified [facility] Diagnosis Preop exam for internal medicine- Primary Other specified pre-operative examination Skull mass Disorder of bone and cartilage, unspecified Essential hypertension Unspecified essential hypertension Hyperlipidemia, unspecified hyperlipidemia type Preop exam for internal medicine Other specified pre-operative examination Skull mass Disorder of bone and cartilage, unspecified Essential hypertension Unspecified essential hypertension Hyperlipidemia, unspecified hyperlipidemia type Skull lesion Disorder of bone and cartilage, unspecified [facility] Diagnosis Skull mass Disorder of bone and cartilage, unspecified Skull lesion Disorder of bone and cartilage, unspecified [facility] Diagnosis Onset Date Resolution Status Scalp lesion chronic Scalp lesion chronic Acute blood loss anemia acut e C. difficile enteritis acute Cerebrovascular disease acut e Excessive cerumen in both ear canals acute H/O craniotomy acute Hyponatremia acute Ischemic cerebrovascular accident (CVA) acute Mitral stenosis acute Physical debility acute Pulmonary hypertension acute Thrush acute Scalp lesion chronic [facility] Work Phone: Evaluation note* Diagnosis Neuroendocrine cancer Other malignant neoplasm without specification of site Cancer of cerebral meninges Malignant neoplasm of cerebral meninges [facility] Neuroendocrine cancer- Primary Other malignant neoplasm without specification of site [facility] Diagnosis Onset Date Resolution Status Acute blood loss anemia acut e Excessive cerumen in both ear canals acute High cholesterol acute Ischemic cerebrovascular accident (CVA) acute Paroxysmal atrial fibrillation acute Physical debility acute HTN (hypertension) chronic Hyponatremia resolved Paroxysmal atrial fibrillati on with rapid ventricular response resolved Thrush resolved Ischemic cerebrovascular accident (CVA) acute Paroxysmal atrial fibrillation acute HTN (hypertension) chronic Paroxysmal atrial fibrillati on with rapid ventricular response resolved Ischemic cerebrovascular accident (CVA) acute Mitral valve stenosis, non-rheumatic acute Paroxysmal atrial fibrillation acute [facility] Work Phone: Evaluation note* Diagnosis Cancer of cerebral meninges- Primary Malignant neoplasm of cerebral meninges Neuroendocrine cancer Other malignant neoplasm without specification of site [facility] Diagnosis Neuroendocrine cancer- Primary Other malignant neoplasm without specification of site [facility] Diagnosis Cancer of cerebral meninges- Primary Malignant neoplasm of cerebral meninges [facility] Diagnosis Cancer of cerebral meninges- Primary Malignant neoplasm of cerebral meninges [facility] Diagnosis Cancer of cerebral meninges- Primary Malignant neoplasm of cerebral meninges [facility]* Diagnosis Cancer of cerebral meninges- Primary Malignant neoplasm of cerebral meninges [facility] Diagnosis Onset Date Resolution Status Carotid artery bruit acute Ischemic cerebrovascular accident (CVA) acute jail current use of amiodarone acute Mitral valve stenosis, non-rheumatic acute Paroxysmal atrial fibrillation acute [facility] Work Phone: Evaluation note* Diagnosis Cancer of cerebral meninges Malignant neoplasm of cerebral meninges [facility] Diagnosis Cancer of cerebral meninges- Primary Malignant neoplasm of cerebral meninges Neuroendocrine cancer Other malignant neoplasm without specification of site [facility] Diagnosis Cancer of cerebral meninges Malignant neoplasm of cerebral meninges Neuroendocrine cancer Other malignant neoplasm without specification of site [facility] Diagnosis Cancer of cerebral meninges Malignant neoplasm of cerebral meninges Neuroendocrine cancer Other malignant neoplasm without specification of site [facility]* Diagnosis Cancer of cerebral meninges- Primary Malignant neoplasm of cerebral meninges [facility] Diagnosis Cancer of cerebral meninges Malignant neoplasm of cerebral meninges [facility]* Diagnosis Cancer of cerebral meninges- Primary Malignant neoplasm of cerebral meninges Skin change Other symptoms involving skin and integumentary tissues Alopecia Alopecia, unspecified S/P radiation therapy Convalescence following radiotherapy documented [facility] this encounter [facility] Additional Instructions Follow-up with your primary care physician at your scheduled appointment tomorrow. Return with worsening symptoms or any other concerns.[facility] Work Phone: Reason for referral (narrative)* Consultation (Urgent) - New Request Specialty Diagnoses / Procedures Referred By Martha maciel Referred To Contact Oncology Diagnoses Skull mass Shaye Weston APRN-CNP [address] [place] [address] Referral ID Status Reason Start Date Expiration Date V isits Requested Visits Authorized [id number] New Request 09/30/2022 10/25/2023 1 1 * MRI/CAT Scan (Emergency) - New Request Specialty Diagnoses / Procedures Referred By Martha maciel Referred To Contact Diagnoses Skull mass Procedures CT ABDOMEN/PELVIS WITH CONTRAST CHG CT SCAN,ABDOMENT AND PELVIS,W CONTRAST Shaye Weston APRN-CNP [address] [place] [address] Referral ID Status Reason Start Date Expiration Date V isits Requested Visits Authorized [id number] New Request 09/30/2022 10/25/2023 1 1 * MRI/CAT Scan (Emergency) - New Request Specialty Diagnoses / Procedures Referred By Martha maciel Referred To Contact Diagnoses Skull mass Procedures CT CHEST WITH CONTRAST CHG DIAGNOSTIC COMPUTED TOMOGRAPHY THORAX W/CONTRAST Shaye Weston APRN-CNP [address] [place] [address] Referral ID Status Reason Start Date Expiration Date V isits Requested Visits Authorized [id number] New Request 09/30/2022 10/25/2023 1 1 [facility] (narrative)No reason for referral information availableWGeorgetown Behavioral [facility] Work Phone: Family History No Family History Records Found Relationship Condition Age at Onset Recorded Date/T emir father Cerebrovascular accident (CVA) Unknown Cardiac disease Unknown mother Diabetes mellitus Unknown Advance Directives No Advanced Directives Records Found Advance Directive Response Recorded Date/ Time Living Will No July 31, 022 8:17pm Power of Wool Shearing Supervisor No July 31, 2021 8:17pm Advance Directive Response Recorded Date/ Time Living Will No July 31, 022 7:17pm Power of Wool Shearing Supervisor No July 31, 2021 7:17pm Advance Directive Response Recorded Date/ Time Name of Medical Power of Wool Shearing Supervisor nicole Rapp December 10, 2022 11:50am Living Will Yes December 10, 2022 1 1:50am Power of Wool Shearing Supervisor Yes December 10, 2022 11:50am Latest Code Status on File Code Status Date Activated Date Inactivated Comments Full Code 11/24/2022 4:41 PM Code Status History Code Status Date Activated Date Inactivated Comments Full Code 11/17/2022 10:57 AM 11/24/2022 4:41 PM Full Code 11/16/2022 5:26 AM 11/16/2022 5:13 PM Full Code 10/13/2022 8:29 AM 11/16/2022 5:26 AM Latest Code Status on File Code Status Date Activated Date Inactivated Comments Full Code 11/24/2022 4:41 PM Code Status History Code Status Date Activated Date Inactivated Comments Full Code 11/17/2022 10:57 AM 11/24/2022 4:41 PM Full Code 11/16/2022 5:26 AM 11/16/2022 5:13 PM Full Code 10/13/2022 8:29 AM 11/16/2022 5:26 AM Advance Directive Response Recorded Date/ Time Name of Medical Power of Wool Shearing Supervisor Alexsandra Renettanicole apple cristinjanusz December 10, 2022 11:50am Name of Medical Power of Wool Shearing Supervisor AlexsandraSonal saminayudy boudreaux December 23, 2022 6:27pm Living Will Yes December 23, 2022 6:27pm Power of Wool Shearing Supervisor Yes December 23 6:27pm Advance Directive Response Recorded Date/ Time Living Will Yes December 23, 2022 5:27pm Power of Wool Shearing Supervisor Yes December 23 5:27pm Date Activated Date Inactivated Comments 11/24/2022 4:41 PM Date Activated Date Inactivated Comments 11/17/2022 10:57 AM 11/24/2022 4:41 PM Date Activated Date Inactivated Comments 11/16/2022 5:26 AM 11/16/2022 5:13 PM Date Activated Date Inactivated Comments 10/13/2022 8:29 AM 11/16/2022 5:26 AM Date Activated Date Inactivated Comments 11/24/2022 4:41 PM Date Activated Date Inactivated Comments 11/17/2022 10:57 AM 11/24/2022 4:41 PM Date Activated Date Inactivated Comments 11/16/2022 5:26 AM 11/16/2022 5:13 PM Date Activated Date Inactivated Comments 10/13/2022 8:29 AM 11/16/2022 5:26 AM Advance Directive Response Recorded Date/ Time Do you have a Healthcare Power of Wool Shearing Supervisor? Yes September 27, 2024 9:32am Name of Medical Power of Wool Shearing Supervisor Alexsandra September 27, 2024 9:32am Chief Complaint and Reason for Visit Chief Complaint SCREENING Chief Complaint SEBACEOUS CYST SCALP CYST F/U SEBASECOUS CYST Reason for Visit Scalp lesion Scalp lesion Chief Complaint SEBACEOUS CYST SCALP CYST F/U SEBASECOUS CYST SKULL MASS Reason for Visit Scalp lesion Scalp lesion Chief Complaint SEBACEOUS CYST SCALP CYST F/U SEBASECOUS CYST SKULL MASS SKULL MASS *3D RECONSTRUCTION* Reason for Visit Scalp lesion Scalp lesion Chief Complaint SEBACEOUS CYST SCALP CYST F/U SEBASECOUS CYST SKULL MASS SKULL MASS *3D RECONSTRUCTION* STROKE STROKE STROKE STROKE STROKE STROKE STROKE STROKE Reason for Visit Scalp lesion Scalp lesion Acute blood loss anemia C. difficile enteritis Cerebrovascular disease Excessive cerumen in both ear canals H/O craniotomy Hyponatremia Ischemic cerebrovascular accident (CVA) Mitral stenosis Physical debility Pulmonary hypertension Thrush Scalp lesion Chief Complaint F/U SEBASECOUS CYST SKULL MASS SKULL MASS *3D RECONSTRUCTION* STROKE STROKE STROKE STROKE STROKE STROKE STROKE STROKE STROKE STROKE Atrial fibrillation AFIB WITH RVR AFIB WITH RVR AFIB WITH RVR STROKE STROKE S/P [facility] 12/24/22 Reason for Visit Acute blood loss ane pam Excessive cerumen in both ear canals High cholesterol Ischemic cerebrovascular accident (CVA) Paroxysmal atrial fibrillation Physical debility HTN (hypertension) Hyponatremia Paroxysmal atrial fibrillation with rapid ventricular response Thrush Ischemic cerebrovascular accident (CVA) Paroxysmal atrial fibrillation HTN (hypertension) Paroxysmal atrial fibrillation with rapid ventricular response Ischemic cerebrovascular accident (CVA) Mitral valve stenosis, non-rheumatic Paroxysmal atrial fibrillation Chief Complaint [address] TO FAX (HOME HEALTH TO OUTPATIENT) Reason for Visit Carotid artery bruit Ischemic cerebrovascular accident (CVA) jail current use of amiodarone Mitral valve stenosis, non-rheumatic Paroxysmal atrial fibrillation Chief Complaint Admit Date chest pain September 27, 2024 9:1 9am Reason for Referral Specialty Diagnoses / Procedures Referred By Martha maciel Referred To Contact Diagnoses Preop exam for internal medicine Skull mass Essential hypertension Hyperlipidemia, unspecified hyperlipidemia type Procedures PREPARE TO TRANSFUSE OR RED BLOOD CELLS Qian Randle MD [address] [facility] [place] [facility] [address] [place] [address] Referral ID Status Reason Start Date Expiration Date V isits Requested Visits Authorized [id number] New Request 10/08/2022 11/02/2023 1 1 Specialty Diagnoses / Procedures Referred By Martha maciel Referred To Contact Diagnoses Skull mass Procedures MRI STEALTH BRAIN CA MRI BRAIN COMBO Shaye Weston, AMBULANCE ASSISTANT-[employer]ELT GL[employer] SANDER [address] [place] [address] Referral ID Status Reason Start Date Expiration Date V isits Requested Visits Authorized [id number] New Request 10/08/2022 11/02/2023 1 1 Specialty Diagnoses / Procedures Referred By Contac t Referred To Contact Diagnoses Neuroendocrine cancer Cancer of cerebral meninges Procedures MRI BRAIN WITH PERFUSION CA MRI BRAIN Andrew Sher MD [address] [place] [address] Referral ID Status Reason Start Date Expiration Date V isits Requested Visits Authorized [id number] New Request 01/06/2023 01/31/2024 1 1 Specialty Diagnoses / Procedures Referred By Contac t Referred To Contact Diagnoses Neuroendocrine cancer Cancer of cerebral meninges Procedures NUC PET NEUROENDOCRINE CHG NUC THERAPY HYPERTHYROID SUBSEQUENT Andrew Bueno MD [address] [place] [address] Referral ID Status Reason Start Date Expiration Date V isits Requested Visits Authorized [id number] New Request 01/06/2023 01/31/2024 1 1 Specialty Diagnoses / Procedures Referred By Contac t Referred To Contact Diagnoses Cancer of cerebral meninges Procedures MRI BRAIN WITH PERFUSION CA MRI BRAIN Andrew Sher MD [address] [place] [address] Referral ID Status Reason Start Date Expiration Date V isits Requested Visits Authorized [id number] New Request 03/15/2023 04/08/2024 1 1 Specialty Diagnoses / Procedures Referred By Contac t Referred To Contact Diagnoses Cancer of cerebral meninges Procedures MRI BRAIN WITH PERFUSION CA MRI BRAIN COMBO Kristine Blue, AMBULANCE ASSISTANT-[employer]ER [address] [facility] [address] [place] [address] Referral ID Status Reason Start Date Expiration Date V isits Requested Visits Authorized [id number] New Request 05/19/2023 06/12/2024 1 1 Referral ID Status Reason Start Date Expiration Date V isits Requested Visits Authorized [id number] New Request 08/23/2023 09/16/2024 1 1 Specialty Diagnoses / Procedures Referred By Contac t Referred To Contact Diagnoses Cancer of cerebral meninges Neuroendocrine cancer Procedures NUC PET NEUROENDOCRINE CHG PET IMAGING CT ATTENUATION SKULL BASE MID-THIGH Andrew Bueno MD [address] [place] [address] Referral ID Status Reason Start Date Expiration Date V isits Requested Visits Authorized [id number] New Request 11/29/2023 12/23/2024 1 1 Specialty Diagnoses / Procedures Referred By Contac t Referred To Contact Diagnoses Cancer of cerebral meninges Neuroendocrine cancer Procedures MRI BRAIN WITH PERFUSION CHG MRI BRAIN BRAIN STEM W/O W/CONTRAST MATERIAL Andrew Bueno MD [address] [place] [address] Referral ID Status Reason Start Date Expiration Date V isits Requested Visits Authorized [id number] New Request 11/29/2023 12/23/2024 1 1 Specialty Diagnoses / Procedures Referred By Contac t Referred To Contact Diagnoses Cancer of cerebral meninges Procedures MRI BRAIN WITH PERFUSION CHG MRI BRAIN BRAIN STEM W/O W/CONTRAST MATERIAL Su, Kristine Haro, AMBULANCE ASSISTANT-[employer]ER [address] [place] [address] Referral ID Status Reason Start Date Expiration Date V isits Requested Visits Authorized [id number] New Request 03/14/2024 04/08/2025 1 1 Summary Purpose Additional Source Comments Goals (unrecognized section and content) Goals may be documented in a n alternate sectionGoals may be documented in an alternate sectionGoals may be documented in an alternate sectionGoals may be documented in an alternate sectionGoals may be documented in an alternate sectionGoals may be documented in an alternate sectionGoals may be documented in an alternate sectionGoals may be documented in an alternate sectionGoals may be documented in an alternate section Care Teams (unrecognized sec tion and content) Team Status: Active Member Role Status Dates Dr. Monika Venegas MD Family Provider Active Dr. Monika Venegas MD Primary Care Provider Active Team Status: Inactive Member Role Status Dates Dr. Monika Venegas MD Primary Care Provider, Referrin g Provider Active Dr. Rock Downing MD Attending Provider Active Team Status: Inactive Member Role Status Dates Dr. Monika Venegas MD Primary Care Provider Active Dr. Rock Downing MD Attending Provider, Referring P rovider Active Team Status: Active Member Role Status Dates Dr. Monika Venegas MD Primary Care Provider, Attendin g Provider Active Team Status: Inactive Member Role Status Dates Dr. Monika Venegas MD Primary Care Provider, Attendin g Provider Active Team Status: Active Member Role Status Dates Dr. Monika Venegas MD Primary Care Provider Active MONICA ESQUIVEL Attending Provider, Referring Provide r Active Team Status: Inactive Member Role Status Dates Dr. Monika Venegas MD Primary Care Provider Active MONICA ESQUIVEL Attending Provider, Referring Provide r Active General Surgery Physician Assistant Relationship Specialty Start Date End Date Monika Venegas MD [address] [place] [address] PCP - General Family Medicine 09/28/22 General Surgery Physician Assistant Relationship Specialty Start Date End Date Monika Venegas MD [address] [place] [address] PCP - General Family Medicine 09/28/22 General Surgery Physician Assistant Relationship Specialty Start Date End Date Monika Venegas MD [address] [place] [phone] PCP - General Family Medicine 09/28/22 General Surgery Physician Assistant Relationship Specialty Start Date End Date Monika Venegas MD [address] [place] [address] PCP - General Family Medicine 09/28/22 General Surgery Physician Assistant Relationship Specialty Start Date End Date Monika Venegas MD [address] [place] [address] PCP - General Family Medicine 09/28/22 Team Status: Inactive Member Role Status Dates Dr. Monika Venegas MD Primary Care Provider Active DEQUAN ANDERSON Attending Provider, Referring Prov ider Active Team Status: Inactive Member Role Status Dates Dr. Monika Venegas MD Primary Care Provider Active MONICA ESQUIVEL Attending Provider Active MONICA ESQUIVEL Referring Provider Active Team Status: Active Member Role Status Dates Dr. Monika Venegas MD Primary Care Provider Active Dr. Jo-Ann Arias , DO Admit Pr ovider, Attending Provider, Other Provider Active Team Status: Active Member Role Status Dates Dr. Monika Venegas MD Primary Care Provider Active Dr. Jo-Ann Arias , DO Admit Pr ovider, Attending Provider, Referring Provider, Other Provider Active Team Status: Inactive Member Role Status Dates Dr. Monika Venegas MD Primary Care Provider Active Dr. Jo-Ann Arias , DO Admit Pr ovider, Attending Provider, Referring Provider Active General Surgery Physician Assistant Relationship Specialty Start Date End Date Monika Venegas MD [address] [place] [address] PCP - General Family Medicine 09/28/22 General Surgery Physician Assistant Relationship Specialty Start Date End Date Monika Venegas MD [address] [place] [phone] PCP - General Family Medicine 09/28/22 General Surgery Physician Assistant Relationship Specialty Start Date End Date Monika Venegas MD [address] [place] [phone] PCP - General Family Medicine 09/28/22 Team Status: Active Member Role Status Dates Dr. Monika Venegas MD Primary Care Provider Active Dr. Laura Jacobo MD Admit Provider, Other Provider Active Kourtney Thompson Other Provider Active Dr. Dudley Calderon MD Attending Provider, Other Provid er Active Dr. Nic Harvey MD Other Provider Active Dr. Domenic Goodson MD Other Provider Active Dr. German Dacosta MD Other Provider Active Dr. John Severino MD Other Provider Active Dr. Corey Easton MD Other Provider Active Dr. Antwon Tyler MD Other Provider Active Dr. Juan Jose Rubio MD Other Provider Active Dr. Amelia Díaz MD Other Provider Active Dr. Gemma Cordova MD Other Provider Active Dr. Darshan Esparza MD Other Provider Active Dr. Hugo Burns MD Other Provider Active Dr. Howard Rivera MD Other Provider Active Jagdish Moncada DISPATCH OFFICER, DISPATCH OFFICER-C Other Provider Active Kourtney Beasley DISPATCH OFFICER, DISPATCH OFFICER-C Other Provider Active Lolly Alejandra PA, PA Other Provider Active Dr. Alix Hudson DO Other Provider Active Team Status: Active Member Role Status Dates Dr. Monika Venegas MD Primary Care Provider Active Dr. Laura Jacobo MD Admit Provider, Other Provider Active Kourtney Thompson Other Provider Active Dr. Dudley Calderon MD Other Provider Active Dr. Nic Harvey MD Other Provider Active Dr. Domenic Goodson MD Other Provider Active Dr. German Dacosta MD Other Provider Active Dr. John Severino MD Other Provider Active Dr. Corey Easton MD Other Provider Active Dr. Antwon Tyler MD Other Provider Active Dr. Juan Jose Rubio MD Other Provider Active Dr. Amelia Díaz MD Other Provider Active Dr. Gemma Cordova MD Other Provider Active Dr. Darshan Esparza MD Other Provider Active Dr. Hugo Burns MD Other Provider Active Dr. Howard Rivera MD Other Provider Active Jagdish Moncada DISPATCH OFFICER, DISPATCH OFFICER-C Other Provider Active Kourtney Beasley DISPATCH OFFICER, DISPATCH OFFICER-C Other Provider Active Lolly Alejandra PA, PA Other Provider Active Dr. Alix Hudson DO Attending Provider, Other Provide r Active Team Status: Inactive Member Role Status Dates Dr. Monika Venegas MD Primary Care Provider, Referrin g Provider Active Lolly Alejandra PA, PA Attending Provider Active Team Status: Active Member Role Status Dates Dr. Monika Venegas MD Primary Care Provider Active Dr. German Dacosta MD Attending Provider Active Dr. Jo-Ann Arias DO Referring Provider Act henrietta Team Status: Inactive Member Role Status Dates Dr. Monika Venegas MD Primary Care Provider Active Dr. Laura Jacobo MD Admit Provider, Other Provider Active Kourtney Thompson Other Provider Active Dr. Dudley Calderon MD Other Provider Active Dr. Nic Harvey MD Other Provider Active Dr. Domenic Goodson MD Other Provider Active Dr. German Dacosta MD Other Provider Active Dr. John Severino MD Other Provider Active Dr. Corey Easton MD Other Provider Active Dr. Antwon Tyler MD Other Provider Active Dr. Juan Jose Rubio MD Other Provider Active Dr. Amelia Díaz MD Other Provider Active Dr. Gemma Cordova MD Other Provider Active Dr. Darshan Esparza MD Other Provider Active Dr. Hugo Burns MD Other Provider Active Dr. Howard Rivera MD Other Provider Active Jagdish Moncada DISPATCH OFFICER, DISPATCH OFFICER-C Other Provider Active Kourtney Beasley DISPATCH OFFICER, DISPATCH OFFICER-C Other Provider Active Lolly Alejandra PA, PA Other Provider Active Dr. Alix Hudson DO Attending Provider Active General Surgery Physician Assistant Relationship Specialty Start Date End Date Monika Venegas MD [address] [place] [phone] PCP - General Family Medicine 09/28/22 General Surgery Physician Assistant Relationship Specialty Start Date End Date Monika Venegas MD [address] [place] [address] PCP - General Family Medicine 09/28/22 General Surgery Physician Assistant Relationship Specialty Start Date End Date Monika Venegas MD [address] [place] [address] PCP - General Family Medicine 09/28/22 General Surgery Physician Assistant Relationship Specialty Start Date End Date Monika Venegas MD [address] [place] [address] PCP - General Family Medicine 09/28/22 General Surgery Physician Assistant Relationship Specialty Start Date End Date Monika Venegas MD [address] [place] [phone] PCP - General Family Medicine 09/28/22 General Surgery Physician Assistant Relationship Specialty Start Date End Date Monika Venegas MD [address] [place] [address] PCP - General Family Medicine 09/28/22 General Surgery Physician Assistant Relationship Specialty Start Date End Date Monika Venegas MD [address] [place] [phone] PCP - General Family Medicine 09/28/22 General Surgery Physician Assistant Relationship Specialty Start Date End Date Monika Venegas MD [address] [place] [phone] PCP - General Family Medicine 09/28/22 General Surgery Physician Assistant Relationship Specialty Start Date End Date Monika Venegas MD [address] [place] [address] PCP - General Family Medicine 09/28/22 Team Status: Inactive Member Role Status Dates Dr. Monika Venegas MD Primary Care Provider Active Lolly MCKENZIE, PA Attending Provider, Referr ing Provider Active Team Status: Active Member Role Status Dates Dr. Monika Venegas MD Primary Care Prov ider, Attending Provider, Referring Provider Active General Surgery Physician Assistant Relationship Specialty Start Date End Date Monika Venegas MD [address] [place] [phone] PCP - General Family Medicine 09/28/22 General Surgery Physician Assistant Relationship Specialty Start Date End Date Monika Venegas MD [address] [place] [phone] PCP - General Family Medicine 09/28/22 General Surgery Physician Assistant Relationship Specialty Start Date End Date Monika Venegas MD [address] [place] [phone] PCP - General Family Medicine 09/28/22 General Surgery Physician Assistant Relationship Specialty Start Date End Date Monika Venegas MD [address] [place] [address] PCP - General Family Medicine 09/28/22 Team Status: Active Member Role Status Dates Dr. Monika Venegas MD Primary Care Provider Active Team Status: Inactive Member Role Status Dates Dr. Monika Venegas MD Primary Care Provider Active Start: June 19, 2024 End: June 19, 2024 Dr. Nati Hudson DO Attending Provider Active Start: June 19, 2024 End: June 19, 2024 Team Status: Inactive Member Role Status Dates Dr. Monika Venegas MD Primary Care Provider Active Start: July 24, 2024 End: July 24, 2024 Dr. Nati Hudson DO Attending Provider Active Start: July 24, 2024 End: July 24, 2024 Dr. Nati Hudson DO Referring Provider Active Start: July 24, 2024 End: July 24, 2024 Team Status: Inactive Member Role Status Dates Dr. Monika Venegas MD Primary Care Provider Active Start: September 27, 2024 End: September 27, 2024 Dr. Hayden Sadler DO Emergency Provider Active Start: September 27, 2024 End: September 27, 2024 Reason for Visit (unrecogniz ed section and content) Reason Comments New Patient Specialty Diagnoses / Procedures Referred By Martha maciel Referred To Contact Neurologic Surgery Diagnoses Neoplasm of bone of skull Monika Venegas MD [address] [place] [address] [facility] [address] [place] [address] Referral ID Status Reason Start Date Expiration Date V isits Requested Visits Authorized [id number] Pending Review 09/27/2022 10/22/2023 1 1 Reason Comments Pre-operative Consultation Specialty Diagnoses / Procedures Referred By Contac t Referred To Contact PreOp Diagnoses Skull mass Shaye Weston, AMBULANCE ASSISTANT-[employer]ER [address] [place] [address] Referral ID Status Reason Start Date Expiration Date V isits Requested Visits Authorized [id number] New Request 10/07/2022 11/01/2023 1 1 Specialty Diagnoses / Procedures Referred By Contac t Referred To Contact Diagnoses Skull mass Procedures MRI STEALTH BRAIN CA MRI BRAIN COMBO Shaye Weston, AMBULANCE ASSISTANT-[employer]ER [address] [place] [address] Referral ID Status Reason Start Date Expiration Date V isits Requested Visits Authorized [id number] New Request 10/08/2022 11/02/2023 1 1 Specialty Diagnoses / Procedures Referred By Contac t Referred To Contact Diagnoses Neuroendocrine cancer Cancer of cerebral meninges Procedures MRI BRAIN WITH PERFUSION CA MRI BRAIN COMBO Andrew Bueno MD [address] [place] [phone] Referral ID Status Reason Start Date Expiration Date V isits Requested Visits Authorized [id number] New Request 01/06/2023 01/31/2024 1 1 Specialty Diagnoses / Procedures Referred By Contac t Referred To Contact Diagnoses Neuroendocrine cancer Cancer of cerebral meninges Procedures NUC PET NEUROENDOCRINE CHG NUC THERAPY HYPERTHYROID SUBSEQUENT Andrew Bueno MD [address] [place] [phone] Referral ID Status Reason Start Date Expiration Date V isits Requested Visits Authorized [id number] New Request 01/06/2023 01/31/2024 1 1 Reason Comments Continuity Of Care Specialty Diagnoses / Procedures Referred By Contac t Referred To Contact Diagnoses Neuroendocrine cancer Cancer of cerebral meninges Procedures RAD ONC SIMULATION Andrew Bueno MD [address] [place] [address] Referral ID Status Reason Start Date Expiration Date Visits Re quested Visits Authorized [id number] Closed 01/06/2023 01/31/2024 1 1 Reason Comments Consult Reason Comments On Treatment Visit Reason Comments On Treatment Visit Reason Comments Follow-up Specialty Diagnoses / Procedures Referred By Contac t Referred To Contact Diagnoses Cancer of cerebral meninges Procedures MRI BRAIN WITH PERFUSION CA MRI BRAIN COMBO Kristine Blue, AMBULANCE ASSISTANT-[employer]ER [address] [place] [address] [address] [place] [address] Referral ID Status Reason Start Date Expiration Date V isits Requested Visits Authorized [id number] New Request 05/19/2023 06/12/2024 1 1 Specialty Diagnoses / Procedures Referred By Contac t Referred To Contact Diagnoses Cancer of cerebral meninges Procedures MRI BRAIN WITH PERFUSION CA MRI BRAIN COMBO Andrew Bueno MD [address] [place] [phone] Referral ID Status Reason Start Date Expiration Date V isits Requested Visits Authorized [id number] New Request 08/23/2023 09/16/2024 1 1 Reason Comments Follow-up Specialty Diagnoses / Procedures Referred By Contac t Referred To Contact Diagnoses Cancer of cerebral meninges Neuroendocrine cancer Procedures NUC PET NEUROENDOCRINE CHG PET IMAGING CT ATTENUATION SKULL BASE MID-THIGH Andrew Bueno MD [address] [place] [address] Referral ID Status Reason Start Date Expiration Date V isits Requested Visits Authorized [id number] New Request 11/29/2023 12/23/2024 1 1 Specialty Diagnoses / Procedures Referred By Contac t Referred To Contact Diagnoses Cancer of cerebral meninges Neuroendocrine cancer Procedures MRI BRAIN WITH PERFUSION CHG MRI BRAIN BRAIN STEM W/O W/CONTRAST MATERIAL Andrew Bueno MD [address] [place] [address] Referral ID Status Reason Start Date Expiration Date V isits Requested Visits Authorized [id number] New Request 11/29/2023 12/23/2024 1 1 Specialty Diagnoses / Procedures Referred By Contac t Referred To Contact Diagnoses Cancer of cerebral meninges Procedures MRI BRAIN WITH PERFUSION CHG MRI BRAIN BRAIN STEM W/O W/CONTRAST MATERIAL Salts, Kristine A, AMBULANCE ASSISTANT-[employer]ER [address] [place] [address] Referral ID Status Reason Start Date Expiration Date V isits Requested Visits Authorized [id number] New Request 03/14/2024 04/08/2025 1 1 INFORMATION SOURCE (unrecogn ized section and content) DATE CREATED AUTHOR 08/07/2024 [facility] DATE CREATED AUTHOR AUTHOR'S ORGANIZ ATION 10/02/2024 [facility] FOR RECORDS PERTAINING TO PATIENTS WHO ARE OR HAVE BEEN ENROLLED IN A CHEMICAL DEPENDENCY/SUBSTANCEABUSE PROGRAM, SOME INFORMATION MAY BE OMITTED. This clinical summary was aggregated from multiple sources. Caution should be exercised in using it in the provision of clinical care. This summary normalizes information from multiple sources, and as a consequence, information in this document may materially change the coding, format and clinical context of patient data. In addition, data may be omitted in some cases. CLINICAL DECISIONS SHOULD BE BASED ON THE PRIMARY CLINICAL RECORDS. [employer] provides no warranty or guarantee of the accuracy or completeness of information in this document.
== END 2024-11-07 12:10 | disposition short-term general hospital (02) ==
PROVIDERS: Emergency Provider Emergency Medicine; PCP Family Medicine; Visit Provider Emergency Medicine
DX: S06.5X0A Traumatic subdural hemorrhage without loss of consciousness, initial encounter (principal); I48.0 Paroxysmal atrial fibrillation; Z90.710 Acquired absence of both cervix and uterus; R00.1 Bradycardia, unspecified; E78.00 Pure hypercholesterolemia, unspecified; R26.2 Difficulty in walking, not elsewhere classified; I10 Essential (primary) hypertension; Z79.01 Long term (current) use of anticoagulants; R09.89 Other specified symptoms and signs involving the circulatory and respiratory systems; Z86.73 Personal history of transient ischemic attack (TIA), and cerebral infarction without residual deficits; Z79.899 Other long term (current) drug therapy; X58.XXXA Exposure to other specified factors, initial encounter
CPT/HCPCS: 70450; 80048; 82962; 84484; 85025; 85610; 85730; 93005; 96365; 99285; A4216; J7165

== ENCOUNTER 2024-11-12 18:16 | Inpatient (IN) | payer MEDICARE, OTHER, SELFPAY ==
[2024-11-12 18:45] VITALS: BP 120/43; PULSE 57; RESP 16; TEMP 37.2; O2SAT 97
[2024-11-12 19:10] VITALS: BMI 24.5
[2024-11-12 21:06] VITALS: PULSE 66
[2024-11-12 21:27] VITALS: BP 115/36; PULSE 54; RESP 18; TEMP 37.4; O2SAT 95
[2024-11-12] MEDS: Magnesium Chloride 64 MG Delay Rel.Tablet PO (21:32)
[2024-11-12] MEDS: Cefdinir 300 MG Capsule PO (21:32)
[2024-11-12] MEDS: APIXABAN 2.5 MG TABLET (WCH) PO (21:32)
[2024-11-12] MEDS: levETIRAcetam 1,000 MG Tablet 1000 MG PO (21:32)
[2024-11-12] MEDS: Atorvastatin Calcium 10 MG Tablet PO (21:32)
--- OUTSIDE RECORDS SUMMARY | 2024-11-13 03:21 | XMS RPT_ITS | CCD ---
Author Organization [facility] Care Team Providers Care Storage Administrator Name Role Phone Dr. Monika Venegas Primary [...] Other Provider Dr. Nic Harvey Other Provider Goodson, Dr. Bhava Other Provider Unavailable Dr. German Dacosta Other Provider Dr. John Severino Other Provider Dr. Corey Easton Other Provider Dr. Antwon Tyler Other Provider Dr. Juan Jose Rubio Other Provider Dr. Amelia Díaz Other Provider Dr. Gemma Cordova Other Provider Dr. Darshan Esparza Other Provider Dr. Hugo Burns Other Provider Dr. Howard Rivera Other Provider Roof HEALTH PROMOTION OFFICER, HEALTH PROMOTION OFFICER-C Jagdish Basilio Other Provider Beasley HEALTH PROMOTION OFFICER, HEALTH PROMOTION OFFICER-C Kourtney Other Provider MAGALY Palomo Other Provider Dr. Alix Hudson Other Provider Dr. Alix Hudson Attending Provider MAGALY Palomo Attending Provider Dr. Monika Venegas Primary Care Provider Dr. Monika Venegas Referring Provider MAGALY Palomo Attending Provider Dr. Monika Venegas MD Primary Care Provider Dr. Nati Hudson DO Attending Provider Dr. Nati Hudson DO Referring Provider Dr. Hayden Sadler DO Emergency Provider Monika Venegas Primary Care Unavailable Hayden Sadler Attending Unavailable Monika Venegas Referring Unavailable Monika Venegas Attending Unavailable Monika Venegas Primary Care Unavailable Monika Venegas Primary Care Unavailable Nati Hudson Attending Unavailable Monika Venegas Primary Care Unavailable Nati Hudson Attending Unavailable Nati Hudson Referring Unavailable Jolliff, Monika S Primary Care Unavailable Provider, Ed Physician Attending Unavailab le Jolliff, Monika S Primary Care Unavailable Anand, Dallas Attending Unavailable Jolliff, Monika S Referring Unavailable Jolliff, Monika S Primary Care Unavailable Lolly Palomo Attending Unavail able Jolliff, Monika S Attending Unavailable Jolliff, Monika S Referring Unavailable Jolliff, Monika S Primary Care Unavailable Jolliff, Monika S Attending Unavailable Jolliff, Monika S Primary Care Unavailable Jolliff, Monika S Attending Unavailable Jolliff, Monika S Referring Unavailable Jolliff, Monika S Primary Care Unavailable Jolliff, Monika S Attending Unavailable Jolliff, Monika S Referring Unavailable Jolliff, Monika S Primary Care Unavailable Jolliff, Monika S Referring Unavailable Jolliff, Monika S Attending Unavailable Jolliff, Monika S Primary Care Unavailable BUENO, ANDREW D Attending Unavailable BUENO, ANDREW D Referring Unavailable JOLLIFF, MONIKA S Primary Care Unavailable BUENO, ANDREW D Attending Unavailable BUENO, ANDREW D Referring Unavailable JOLLIFF, MONIKA S Primary Care Unavailable JOLLIFF, MONIKA S Referring Unavailable BUENO, ANDREW D Attending Unavailable JOLLIFF, MONIKA S Primary Care Unavailable JOLLIFF, MONIKA S Primary Care Unavailable SALTS, KRISTINE A Attending Unavailable SALTS, KRISTINE A Referring Unavailable JOLLIFF, MONIKA S Primary Care Unavailable BUENO, ANDREW D Attending Unavailable SALTS, KRISTINE A Referring Unavailable JOLLIFF, MONIKA S Primary Care Unavailable BUENO, ANDREW D Attending Unavailable BUENO, ANDREW D Referring Unavailable BUENO, ANDREW D Attending Unavailable SELF, SELF Referring Unavailable JOLLIFF, MONIKA S Primary Care Unavailable JOLLIFF, MONIKA S Primary Care Unavailable ANGEL HILTON Attending Unavailable CONSULT, SURGERY - NEURO Consulting Unavail able ANAND, DALLAS Referring Unavailable JL NAZARIO Admitting Unavailable Jolliff Monika DEL VALLE Primary Care Provider Medications Current Medications Medication Drug Class(es) Dates Sig (Normalized) Sig (Original) apixaban 2.5 mg oral tablet (20 sources) Factor Xa Inhibitor Start: 11-08-2024 End: 11-12-2024 take 1 tablet by mouth every twelve hours apixaban (Eliquis) 2.5 MG tablet Indications: Paroxysmal atrial fibrillation Take 1 tablet by mouth every 12 hours. 11/12/2024 Active Start: 08-13-2024 take 1 tablet by melo twice daily Apixaban 2.5 mg tablet Active 2.5 mg PO TWICE A DAY 180 August 13, 2024 12:00am Start: 12-29-2022 End: 11-12-2024 apixaban (Eliquis) 5 MG tabl et 01/01/2023 11/12/2024 Discontinued cefdinir 300 mg oral capsule (1 source) Cephalosporin Antibacterial Start: 11-12-2024 End: 11-15-2024 take 1 capsule by mouth every twelve hours Cefdinir (OMNICEF) 300 MG capsule Take 1 capsule by mouth every 12 hours for 3 days. 6 capsule 11/12/2024 11/15/2024 Active cholecalciferol 0.125 mg oral capsule (17 sources) [...] (GARLIQUE PO) Take by mouth. 0 Active levETIRAcetam 1000 mg oral tablet (3 sources) Start: 11-12-2024 take 1 tablet by mouth every twelve hours levETIRAcetam 1000 MG tablet Take 1 tablet by mouth every 12 hours. 11/12/2024 Active Start: 11-10-2024 End: 11-12-2024 take 1000 mg by mouth every twelve hours 1,000 mg, Oral, EVERY 12 HOURS, First dose on Tue11/10/24 at 0900, Until Discontinued Start: 11-07-2024 End: 11-10-2024 take 1000 mg intravenously every twelve hours 1,000 mg, Intravenous, EVERY 12 HOURS NON-STANDARD, First dose on Tue11/07/24 at 1430, Until Discontinued, Administer by IV push at a rate not to exceed 500 mg/min. lisinopril 10 mg oral tablet (20 sources) Angiotensin Converting Enzyme Inhibitor Start: 11-11-2024 End: 11-12-2024 take 1 tablet by mouth once daily Lisinopril 10 MG tablet Take 1 tablet by mouth daily. 11/12/2024 Active Start: 12-29-2022 End: 11-12-2024 take 2.5 mg by mouth once daily 2.5 mg, Oral, DAILY, First dose on Tue11/10/24 at 0900, Until Discontinued magnesium chloride 535 mg delayed release oral [...] Multivitamin tablet (1 source) Start: 08-12-2020 Multivitamin t ablet Active 1 {tbl} PO DAILY August 12, 2020 1:00am vitamin b12 0.5 mg chewable tablet (11 [...] Sig (Normalized) Sig (Original) acetaminophen 325 mg oral tablet (20 sources) Start: 11-08-2024 End: 11-12-2024 take 1 tablet by mouth every six hours as needed 650 mg, Oral, EVERY 6 HOURS NEEDED, Starting on Donita 11/08/24 at 1551, Until 11/12/24 at 1804, Mild Pain, Oral temp > 100.4 F, Headaches, Alternate with ibuprofen if ordered, Maximum dose of acetaminophen is 4000 mg from all sources in 24 hours or 2000 mg from all sources in patients with cirrhosis in 24 hours. Start: 09-27-2024 Acetaminophen (8 Hour Pain Reliever) [...] 06, 2022 12:00am September 27, 2024 9:59am acetaminophen 325 mg / oxyCODONE hydrochloride 5 mg oral tablet (11 sources) Opioid Agonist Start: 08-19-2020 End: 08-24-2020 Oxycodone-Acetaminophen 1 EA CH tablet Discontinued 1 - 2 {tbl} PO [...] mg oral tablet (20 sources) Antiarrhythmic Start: 11-08-2024 End: 11-12-2024 take 200 mg by mouth once daily 200 mg, Oral, DAILY, First dose on Tue11/08/24 at 1615, Until Discontinued Start: 12-24-2022 End: 12-12-2023 AMIOdarone 200 MG tablet 09/2022 Active ascorbic acid 500 mg oral tablet (4 [...] mg oral tablet (17 sources) beta-Adrenergi c Bright Start: 07-05-2018 End: 12-24-2022 take 1 tablet [...] tablet (20 sources) HMG-CoA Reductase Inhibitor Start: 11-08-2024 End: 11-12-2024 take 10 mg by mouth once daily at bedtime 10 mg, Oral, DAILY AT BEDTIME, First dose on Tue11/08/24 at 2100, Until Discontinued Start: 07-05-2018 End: 12-12-2023 take 1 tablet by mouth at bedtime Atorvastatin 10 MG tablet Discontinued 10 mg PO AT BEDTIME December 29, 2022 5:40pm January 13, 2023 1:50pm Vummgjpzf-Jsszafsexuv-Dyf D (OSTEO BI-FLEX ONE PER DAY PO) (6 sources) End: 10-13-2022 Bygcvqnzd-Cgyqgqvbavp-Bry D (OSTEO BI-FLEX ONE PER DAY PO) [...] 12.5 mg oral tablet (20 sources) alpha-Adrenergic Bright, beta-Adrenergic Bright Start: 11-08-2024 End: 11-12-2024 Start: 12-06-2022 End: 11-12-2024 carveDILOL 12.5 MG tablet 1 tablet by Per NG tube route every 12 hours. 60 tablet 12/06/2022 11/12/2024 Discontinued (Stop Taking at Discharge) Start: 12-06-2022 End: 12-12-2023 take 1 tablet by mouth twice daily at mealtime Carvedilol (Coreg) 12.5 mg tablet Discontinued 12.5 mg PO TWICE DAILY WITH MEALS 60 December 29, 2022 5:40pm January 13, 2023 1:50pm must administer with a meal/food cefTRIAXone 1000 mg injection (1 source) Cephalosporin Antibacterial Start: 11-09-2024 End: 11-12-2024 1 g, Intravenous, Administer over 30 Minutes, DAILY, First dose on Tue11/09/24 at 1030, Until Discontinued cephalexin 500 mg oral capsule (4 sources) [...] 2020 12:00am August 28, 2020 9:41pm doxazosin 1 mg oral tablet (20 sources) alpha-Adrenergic Bright Start: 11-08-2024 End: 11-10-2024 take 2 mg by mouth once daily 2 mg, Oral, Nightly, First dose on Tue11/08/24 at 2100, Until Discontinued Start: 12-06-2022 End: 11-12-2024 take 1 tablet by mouth at bedtime Doxazosin 2 MG tablet Take 1 tablet by mouth at bedtime. 01/30/2023 11/12/2024 Discontinued (Stop Taking at Discharge) ferrous sulfate 325 mg oral tablet (4 sources) Start: 12-06-2022 End: 01-13-2023 take 1 tablet by mouth once daily Ferrous Sulfate (Loly-Time) 325 mg (65 mg iron) tablet Discontinued 325 mg PO DAILY@1200 December 06, 2022 12:00am January 13, 2023 1:18pm Gadopiclenol SOLN 1-25 mL (5 sources) Start: 11-10-2024 End: 11-10-2024 1-25 mL, Intravenous, ONCE, 1 dose, On 11/10/24 at 1100 Start: 07-11-2024 End: 07-11-2024 1-25 mL, Intravenous, ONCE, 1 dose, On Tue07/11/24 at 0945 Start: 03-14-2024 End: 03-14-2024 1-25 mL, Intravenous, ONCE, 1 dose, On Tue03/14/24 at 1400 Start: 11-29-2023 End: 11-29-2023 1-25 mL, Intravenous, ONCE, 1 dose, On 11/29/23 at 1345 Start: 08-18-2023 End: 08-18-2023 1-25 [...] 0.5-5.94 millicurie, Intravenous, ONCE, 1 dose, On 03/14/24 at 0915 Start: 01-12-2023 End: 01-12-2023 Gallium Ga 68 Dotatate (Nets pot) 0.5-5.94 millicurie guaiFENesin 20 mg/ml oral solution (1 source) Start: 11-08-2024 End: 11-12-2024 take 400 mg by mouth every six hours as needed 400 mg, Oral, EVERY 6 HOURS NEEDED, Starting on Tue11/08/24 at 1549, Until 11/12/24 at 1804, Cough, Congestion hydroCHLOROthiazide 25 mg oral tablet (20 sources) Thiazide Diuretic Start: 01-07-2023 End: 09-27-2024 take 1 tablet by mouth once daily Hydrochlorothiazide 25 mg tablet Discontinued 25 mg PO DAILY 90 December 12, 2023 8:05am September 27, 2024 10:00am Start: 07-05-2018 End: 11-12-2024 take 1 tablet by mouth once daily Hydrochlorothiazide 25 MG tablet Discontinued 25 mg PO DAILY July 05, 2018 1:00am December 29, 2022 5:37pm linezolid 600 mg oral tablet (4 sources) Oxazolidinone Antibacterial Start: 12-06-2022 End: 12-29-2022 take 1 tablet by mouth every twelve hours Linezolid 600 mg tablet Discontinued 600 mg PO Q12H December 06, 2022 12:00am December 29, 2022 5:37pm melatonin 3 mg oral tablet (1 source) Start: 11-08-2024 End: 11-12-2024 take 6 mg by mouth once daily at bedtime as needed 6 mg, Oral, DAILY AT BEDTIME NEEDED, Starting on Tue11/08/24 at 1549, Until Tue11/12/24 at 1804, Insomnia Multiple Vitamin (multivitamin) capsule (6 sources) End: 11-17-2022 take 1 capsule by mouth once daily in the morning Multiple Vitamin (multivitamin) capsule Take 1 capsule by mouth daily every morning. 11/17/2022 Discontinued (Medication Reconciliation (suppress cancel msg)) take 1 capsule by mo uth once daily in the morning Multiple Vitamin (multivitamin) capsule Take 1 capsule by mouth daily every morning. 0 Active take 1 capsule by mouth once jayme ly Multiple Vitamin (multivitamin) capsule Take 1 capsule by mouth daily. 0 Active 200 ml niCARdipine hydrochloride 0.2 mg/ml injection (1 source) Dihydropyridine Calcium Channel Bright Start: 11-07-2024 End: 11-08-2024 0-15 mg/hr (0-75 mL/hr), Intravenous, CONTINUOUS, Starting on Tue11/07/24 at 1330, Until Tue11/08/24 at 1535, Initiate at 5 mg/hr. Titrate by 2.5 mg/hr every 15 minutes to maintain SAH: SBP between 120 and 160 mmHg . Notify prescriber for inability to achieve goals at maximum dose of ordered range or change in clinical condition. Ondansetron 4mg/2ml (ZOFRAN) injection 4 mg (1 source) Start: 11-08-2024 End: 11-12-2024 take 4 mg intravenously every six hours as needed Ondansetron 4mg/2ml (ZOFRAN) injection 4 mg polyethylene glycol 3350 03780 mg powder for oral solution (5 sources) Osmotic Laxative Start: 11-09-2024 End: 11-12-2024 17 g, Oral, DAILY, First dose on Tue11/09/24 at 0900, Until Discontinued Start: 12-06-2022 End: 12-29-2022 Polyethylene Glycol 3350 (Mi ralax) 17 gram powder in packet Discontinued 17 [...] 06, 2022 12:00am January 13, 2023 1:18pm sennosides, mcfp 8.6 mg oral tablet (1 source) Start: 11-08-2024 End: 11-12-2024 take 8.6 mg by mouth once daily as needed for constipation 8.6 mg, Oral, DAILY NEEDED, Starting on Tue11/08/24 at 1551, Until 11/12/24 at 1804, Constipation 1st Line 250 ml sodium chloride 9 mg/ml injection (9 sources) Start: 11-08-2024 End: 11-12-2024 Intravenous, at 20 mL/hr, NEEDED, Starting on Tue11/08/24 at 1549, Until Tue11/12/24 at 1804, Carrier Fluid - See Admin. Inst, 250mL 0.9NS to be used as carrier fluid for intermittent small volume or piggyback medication administration as needed. Infusion rate of the carrier fluid should be set at 20 mL/hr unless the rate as the intermittent medication is less than 20 mL/hr. For intermittent medications with a rate less than 20 mL/hr set the carrier fluid at that rate of the intermittent or piggy back medication. Start: 03-14-2024 End: 03-14-2024 1-100 mL, Intravenous, [...] (PF) 0.9 % i njection 1-100 mL spironolactone 25 mg oral tablet (4 sources) Aldosterone Antagonist Start: 11-09-2024 End: 11-10-2024 take 25 mg by mouth once daily 25 mg, Oral, DAILY, First dose on Tue11/09/24 at 0900, Until Discontinued Start: 09-27-2024 take 1 tablet by melo once daily Spironolactone 25 mg tablet Active 25 mg PO DAILY September 27, 2024 12:00am Start: 03-20-2024 End: 11-12-2024 take 25 mg by mouth once daily Spironolactone 25 MG/5M L Suspension Take 25 mg by mouth daily. 03/20/2024 11/12/2024 Discontinued (Stop Taking at Discharge) zinc gluconate 50 mg oral tablet (1 source) End: 10-13-2022 Zinc 50 MG tablet Take by [facility]. 10/13/2022 Discontinued (Stop Taking at Discharge) Problems [...] meninges] Onset: 01-06-2023 01-12-2023 Chronic Cardiac dysrhythmias (16 sources) Paroxysmal atrial fibrillation; Translations: [Paroxysmal atrial fibrillation] Onset: 01-17-2024 01-09-2023 Chronic Comment on above: New onset on 12/25/19 23 Disorders of lipid metabolism (7 sources) Hyperlipidemia; Translations: [Hyperlipidemia, unspecified] Onset: 05-15-2024 Chronic E Codes: Fall (11 sources) Fall; Translations: [Unspecified fall, initial encounter] 08-08-2021 Episodic Epilepsy; convulsions (5 sources) Unspecified convulsions; Translations: [Seizure] Onset: 11-07-2024 Episodic Essential hypertension (8 sources) Essential hypertension; Translations: [Essential (primary) hypertension] Onset: 12-23-2023 Chronic Gastrointestinal hemorrhage (11 sources) Rectal hemorrhage; Translations: [Hemorrhage of anus and rectum] 08-28-2020 Episodic Heart valve disorders (10 sources) Mitral valve stenosis; 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] 12-08-2022 Chronic Heart valve disorders (3 sources) Cardiac murmur, unspecified; Translations: [Heart murmur] Onset: 11-07-2024 Episodic Hemorrhoids (11 sources) Hemorrhoids; Translations: [Unspecified hemorrhoids] 08-28-2020 Episodic Intestinal infection (2 sources) Clostridioides difficile infection; Translations: [Enterocolitis due to Clostridium difficile, not specified as recurrent] 12-07-2022 Episodic Intracranial injury (3 sources) Traumatic subdural hemorrhage without loss of consciousness, initial encounter; Translations: [Hematoma] Onset: 11-08-2024 11-08-2024 Episodic Malaise and fatigue (6 sources) Asthenia; [...] (2 sources) Drug therapy finding; Translations: [Other meterman (current) drug therapy] 07-19-2023 Episodic Other and [...] since made a referral to neurosurgery with [facility]. Today I did share CT images [...] finding; Translations: [Unspecified skin changes] 07-11-2024 Episodic Pulmonary heart disease (5 sources) Pulmonary hypertension; Translations: [Pulmonary hypertension, unspecified] 12-08-2022 Chronic Residual codes; unclassified (4 sources) History of craniotomy; Translations: [Other specified postprocedural states] 12-08-2022 Episodic Residual codes; unclassified (1 source) Other specified postprocedural states; Translations: [Other postprocedural status] 12-23-2022 Episodic Sprains and strains (11 sources) Lumbosacral [...] Translations: [Anemia, unspecified] Onset: 11-16-2022 11-17-2022 Episodic Fluid and electrolyte disorders (20 sources) Hyponatremia; Translations: [Hypo-osmolality and hyponatremia] Onset: 11-17-2022 12-08-2022 Episodic Mood disorders (20 sources) Mood disorders Onset: 09-30-2022 Resolved: 07-11-2024 09-30-2022 Other aftercare (2 sources) Other meterman (current) drug therapy; Translations: [Long-term (current) use of other medications] Onset: 01-17-2024 07-19-2023 Episodic Other bone disease and musculoskeletal deformities (20 sources) Mass of head; Translations: [Other specified disorders of bone, other site] Onset: 10-04-2022 Episodic Other nervous system disorders (20 sources) Postoperative pain ; Translations: [Other acute postprocedural pain] Onset: 10-13-2022 10-13-2022 Episodic Other skin disorders (2 sources) Unspecified skin changes; Translations: [Unspecified skin changes] Onset: 07-11-2024 Episodic Other skin disorders (2 sources) Nonscarring hair loss, unspecified; Translations: [Nonscarring hair loss, unspecified] Onset: 07-11-2024 Episodic Residual codes; unclassified (20 sources) Postoperative state; Translations: [Other specified postprocedural states] Onset: 11-16-2022 11-16-2022 Episodic Residual codes; unclassified (2 sources) Personal history of irradiation; Translations: [Personal history of irradiation] Onset: 07-11-2024 Episodic Unclassified (10 sources) Onset: 09-30-2022 Resolved: 03-14-2024 09-30-2022 Unclassified (1 source) Skin finding 08-06-2024 Results Test Name Value Interpretation Reference Range Facility CBC,PLATELETSon 11-12-2024 Erythrocyte distribution width (RBC) [Ratio] 13.2 % 10.8 - 14.9 % [facility] Hematocrit (Bld) [Volume fraction] 30 % Low 34.9 - 44.3 % [facility] Hemoglobin (Bld) [Mass/Vol] 10.6 g/dL Low 11.4 - 15.2 g/dL [facility] Interpretation and review of laboratory results Abnormal [facility] MCH (RBC) [Entitic mass] 32.8 pg 25.9 - 33.9 pg [facility] MCHC (RBC) [Mass/Vol] 35.3 g/dL 31.4 - 35.9 g/dL [facility] MCV (RBC) [Entitic vol] 92.9 fL 79.6 - 97.7 fL [facility] Platelet mean volume (Bld) [Entitic vol] 10.2 fL 8.5 - 12.2 fL [facility] Platelets (Bld) [#/Vol] 195 10*3/uL 150 - 393 K/uL [facility] RBC (Bld) [#/Vol] 3.23 10*6/uL Low [facility] WBC (Bld) [#/Vol] 6.18 10*3/uL 3.99 - 11. 19 K/uL [facility] Hematocrit (Bld) [Volume fraction] 30.0 % Low 34.9-44.3 [facility] Comment on above: Performed By: #### [place] [facility] [place] #### [facility] (DEFAULT) [address] [place] [phone] Hemoglobin (Bld) [Mass/Vol] 10.6 g/dL Low 11.4-15.2 [facility] Comment on above: Performed By: #### H EMOGC #### [facility] (DEFAULT) [address] [place] [phone] MCV (RBC) [Entitic vol] 92.9 fL Normal 79.6-97.7 [facility] Comment on above: Performed By: #### H EMOGC #### [facility] (DEFAULT) [address] [address] Mean Cell Hgb 32.8 pg Normal 25.9-33.9 [facility] Comment on above: Performed By: #### H EMOGC #### [facility] (DEFAULT) [address] [address] Mean Cell Hgb Conc 35.3 g/dL Normal 31.4-35.9 [facility] Comment on above: Performed By: #### H EMOGC #### [facility] (DEFAULT) [address] [address] Platelet mean volume (Bld) [Entitic vol] 10.2 fL Normal 8.5-12.2 [facility] Comment on above: Performed By: #### H EMOGC #### [facility] (DEFAULT) [address] [address] Platelets (Bld) [#/Vol] 195 10*3/uL Normal 150-393 [facility] Comment on above: Performed By: #### H EMOGC #### [facility] (DEFAULT) [address] [address] RBC (Bld) [#/Vol] 3.23 10*6/uL Low 3.91-5.04 [facility] Comment on above: Performed By: #### H EMOGC #### [facility] (DEFAULT) [address] [place] [phone] RBC Distribution 13.2 % Normal 10.8-14.9 [facility] Comment on above: Performed By: #### [place] [facility] [place] #### [facility] (DEFAULT) [address] [place] [address] WBC (Bld) [#/Vol] 6.18 10*3/uL Normal 3.99-11.19 [facility] Comment on above: Performed By: #### [facility] [place] #### [facility] (DEFAULT) [address] [place] [phone] CHEM 7 (LYTES,BUN,CREA,GLUC) on 11-12-2024 Anion gap [Moles/Vol] 12 mmol/L 7 - 17 mmol/L [facility] Chloride [Moles/Vol] 99 mmol/L 98 - 10 8 mmol/L [facility] CO2 [Moles/Vol] 25 mmol/L 21 - 31 mmol/L [facility] Creatinine [Mass/Vol] 0.89 mg/dL 0.50 - 1.20 mg/dL [facility] eGFR, CKD-EPI, Female 65 - PINF [facility] Comment on above: Reported eGFR is bas ed on the CKD-EPI 2020 equation using creatinine, age, and sex. Glucose [Mass/Vol] 99 mg/dL 70 - 179 mg/dL [facility] Interpretation and review of laboratory results Abnormal [facility] Osmolality Calc [Osmolality] 278 [facility] Potassium [Moles/Vol] 4.5 mmol/L 3.5 - 5.0 mmol/L [facility] Sodium [Moles/Vol] 131 mmol/L Low 135 - 145 mmol/L [facility] Urea nitrogen [Mass/Vol] 16 mg/dL 7 - 25 mg/dL [facility] Urea nitrogen/Creatinine [Mass ratio] 18 mg[facility] Anion gap [Moles/Vol] 12 mmol/L Normal 7-17 [facility] Comment on above: Performed By: #### C 7 #### [facility] (DEFAULT) [address] [place] [address] Chloride [Moles/Vol] 99 mmol/L Normal 98-108 [facility] Comment on above: Performed By: #### C HM7 #### [facility] (DEFAULT) [address] [place] [address] CO2 [Moles/Vol] 25 mmol/L Normal 21-31 [facility] Comment on above: Performed By: #### C HM7 #### [facility] (DEFAULT) [address] [place] [address] Creatinine [Mass/Vol] 0.89 mg/dL Normal 0.50-1.20 [facility] Comment on above: Performed By: #### C HM7 #### [facility] (DEFAULT) [address] [place] [phone] GFR/1.73 sq M.predicted among non-blacks MDRD (S/P/Bld) [Vol rate/Area] 65 mL/min/{1.73_m2} Normal >=60 [facility] Comment on above: Result Comment: Repo rted eGFR is based on the CKD-EPI 2020 equation using creatinine, age, and sex. Performed By: #### C HM7 #### [facility] (DEFAULT) [address] [place] [phone] Glucose [Mass/Vol] 99 mg/dL Normal Nonfastin -179 mg/dL; Fastin-99 [facility] Comment on above: Performed By: #### C HM7 #### [facility] (DEFAULT) [address] [place] [address] Osmolality [Osmolality] 278 mosm/kg Normal 278-305 [facility] Comment on above: Performed By: #### C HM7 #### [facility] (DEFAULT) [address] [place] [address] Potassium [Moles/Vol] 4.5 mmol/L Normal 3.5-5.0 [facility] Comment on above: Performed By: #### C HM7 #### [facility] (DEFAULT) [address] [place] [address] 39301 Sodium [Moles/Vol] 131 mmol/L Low 135-145 [facility] Comment on above: Performed By: #### C HM7 #### [facility] (DEFAULT) [address] [place] [address] 01951 Urea nitrogen [Mass/Vol] 16 mg/dL Normal 7-25 [facility] Comment on above: Performed By: #### C HM7 #### [facility] (DEFAULT) [address] [place] [address] 74151 Urea nitrogen/Creatinine [Mass ratio] 18 mg/mg Normal [facility] Comment on above: Performed By: #### C HM7 #### [facility] (DEFAULT) [address] [place] [address] 53612 Cardiac echo study Procedure Ordered By: Shirlene Marrero on 11-12-2024 Ao ASC index 2.1 cm/m2 [facility] Work Phone: Ao peak vika 2.71 m/s [facility] Work Phone: Ao SOV index 1.88 cm/m2 [facility] Work Phone: [phone] Ao VTI 63.7 cm [facility] Work Phone: AR Max Vika 4.09 m/s [facility] Work Phone: Ascending aorta 2.9 cm [facility] Work Phone: AV LVOT peak gradient 9 mmHg [facility] Work Phone: AV mean gradient 15 mmHg [facility] Work Phone: AV peak gradient 29 mmHG [facility] Work Phone: AV regurgitation pressure 1/2 time 468 ms [facility] Work Phone: [phone] AV valve area 1.38 cm2 [facility] Work Phone: [phone] AV Velocity Ratio 0.54 [facility] Work Phone: [phone] JULIUS (continuity Vmax) 1.37 cm2 [facility] Work Phone: [phone] JULIUS (continuity VTI) 1.38 cm2 [facility] Work Phone: [phone] JULIUS index (continuity Vmax) 0.99 m/s [facility] Work Phone: [phone] JULIUS index (continuity VTI) 1 cm2/m2 [facility] Work Phone: [phone] Avg e' pk vika 0.06 m/s [facility] Work Phone: [phone] Avg E/e' ratio 15.98 [facility] Work Phone: [phone] Body surface area Derived from formula 1.38 m2 [facility] Work Phone: [phone] DI (Vmax) 0.54 [facility] Work Phone: [phone] DI (VTI) 0.54 m/2 [facility] Work Phone: E wave decelartion time 209 msec [facility] Work Phone: [phone] e' lateral pk vika 0.0729 m/s [facility] Work Phone: [phone] e' lateral pk vika 0.07 m/s [facility] Work Phone: [phone] e' septal pk vika 0.0511 m/s [facility] Work Phone: [phone] e' septal pk vika 0.05 m/s [facility] Work Phone: E/A ratio 0.73 [facility] Work Phone: [phone] E/e' lateral ratio 13.17 [facility] Work Phone: [phone] E/e' septal ratio 18.79 [facility] Work Phone: [phone] Echo EF Estimated 55 % [facility] Work Phone: [phone] EST RAP 3 mmHg [facility] Work Phone: EST RVSP 25 mmHg [facility] Work Phone: [phone] FS 47 % [facility] [phone] IVC ostium 1.5 cm [facility] Work Phone: [phone] IVS 0.9 cm [facility] Work Phone: [phone] LA ESV BP (MOD) 60 mL [facility] Work Phone: LA ESV BP (MOD) index 43 mL/m2 [facility] Work Phone: LA ESV SP 2CH (MOD) [address] [facility] Work Phone: LA ESV SP 4CH (MOD) [address] [facility] Work Phone: LV mass 141.91 g [facility] Work Phone: LV Mass Index 102.8 g/m2 [facility] Work Phone: LV RWT 0.33 [facility] Work Phone: LVIDD 4.9 cm [facility] Work Phone: LVIDS 2.6 cm [facility] Work Phone: LVOT area 2.54 cm2 [facility] Work Phone: LVOT diameter 1.8 cm [facility] Work Phone: [phone] LVOT peak vika 1.46 m/s [facility] Work Phone: [phone] LVOT peak VTI 34.5 cm [facility] Work Phone: [phone] LVOT stroke volume 88 cm3 [facility] Work Phone: [phone] LVOT stroke volume index 63.59 ml/m2 [facility] Work Phone: [phone] MV pk A vika 1.32 m/s [facility] Work Phone: [phone] MV pk E vika 0.96 m/s [facility] Work Phone: [phone] MV stenosis pressure 1/2 time 61 ms [facility] Work Phone: [phone] MV valve area p 1/2 method 3.61 cm2 [facility] Work Phone: [phone] [facility] AV VTI RATIO PRE STRESS 0.54 [facility] Work Phone: [phone] [facility] RVOT VTI RATIO 0.79 [facility] Work Phone: [phone] PV mean gradient 4 mmHg [facility] Work Phone: [phone] [facility]: [phone] PV PK VIKA 1.22 m/s [facility] Work Phone: [phone] PV VTI 29.8 cm [facility] Work Phone: [phone] PW 0.8 cm [facility] Work Phone: [phone] RA vol index 4CH (MOD) 12.32 mL/m2 [facility] Work Phone: [phone] Right atrium volume 4 chamber method of disks 17 [facility] Phone: [phone] RV basal diam 3.7 [facility] Work Phone: RV S' 13.1 cm/s [facility] Work Phone: RVOT peak gradient [address] Work Phone: RVOT peak vika 0.97 m/s [facility] Work Phone: RVOT peak VTI 23.5 cm [facility] Work Phone: Sinus 2.6 cm [facility] Work Phone: Stroke Volume 88 cm/mL [facility] Work Phone: Stroke volume index [address] [facility] Work Phone: TAPSE 2.23 cm [facility] Work Phone: TR pk grad 22 mmHg [facility] Work Phone: TR pk vika 2.33 m/s [facility] Work Phone: [facility] Work Phone: Cardiac echo study Procedure on 11-12-2024 Normal left ventricu lar size with mild asymmetric mid septal hypertrophy (max thickness 1.3 cm). Normal systolic function, LVEF 55-60%. Grade II diastolic dysfunction. Normal right ventricular size with normal systolic function. Mildly calcified aortic valve leaflets with mild aortic stenosis as well as mild to moderate central aortic regurgitation. Normal RVSP estimated at 25 mmHg. Left Ventricle Chamber size is normal. End-diastolic volume is normal. Mild predominately mid septal asymmetric hypertrophy with no gradient. Normal global systolic function. Regional wall motion is normal. The ejection fraction is 55% (+/- 5%) by visual estimate. Ejection fraction is normal (55 - 60%). Diastolic function is consistent with pseudonormalization (grade II). Right Ventricle Chamber size is normal. Systolic function is normal. Estimated right ventricular systolic pressure is 25 mmHg. Right ventricular S' is 13.10 cm/s. Tricuspid annular plane systolic excursion is 2.23 cm. Left Atrium Chamber size is moderately enlarged. Right Atrium Chamber size is normal. IVC/SVC The inferior vena cava is normal in size. The inferior vena cava structure is normal. Mitral Valve Mild anterior and posterior leaflet thickening. Leaflet mobility is normal. Moderate posterior annular calcification. Trace regurgitation. No valve stenosis. Tricuspid Valve Normal leaflets. Leaflet mobility is normal. Trace regurgitation. No stenosis. No echo/Doppler evidence for pulmonary hypertension. Estimated right ventricular systolic pressure is 25 mmHg. Estimated right atrial pressure is 3.00 mmHg. Aortic Valve Trileaflet valve. Leaflet mobility is normal. Mild to moderate central regurgitation. Mild stenosis. LVOT diameter: 1.80 cm. Mean gradient: 15 mmHg. Dimensionless Index by VTI: 0.54. Dimensionless Index by VMAX: 0.54. Valve area continuity VMAX: 1.37 cm2. Valve area continuity VTI: 1.38 cm2. Stroke volume index: 63.59 ml/m2. The valve Vmax is 2.71 m/s. Pulmonic Valve Trace regurgitation. No stenosis. Peak gradient is 6 mmHg. Mean gradient is 4 mmHg. Pericardium No pericardial effusion. Septum The atrial septum is normal. No evidence of patent foramen ovale determined by color flow. Aorta No dilation to extent seen. SOV: 2.60 cm. Ascendin.90 cm. Study Details A complete echocardiography study (including color flow Doppler, spectral Doppler and M-mode) was performed. Overall study quality was fair. Study limitations include patient's inability to turn and technically difficult study. Imaging system used: [employer]ogethe[employer]. Indications Indications for study: murmur. Wall Scoring Score Index: 1.00 The left ventricular wall motion is normal. [facility] Radiology Study observation (narrative) [facility] CBC,PLATELETSon 11-11-2024 Erythrocyte distribution width (RBC) [Ratio] 13.2 % 10.8 - 14.9 % [facility] Hematocrit (Bld) [Volume fraction] 29.3 % Low 34.9 - 44.3 % [facility] Hemoglobin (Bld) [Mass/Vol] 10.2 g/dL Low 11.4 - 15.2 g/dL [facility] Interpretation and review of laboratory results Abnormal [facility] MCH (RBC) [Entitic mass] 32.5 pg 25.9 - 33.9 pg [facility] MCHC (RBC) [Mass/Vol] 34.8 g/dL 31.4 - 35.9 g/dL [facility] MCV (RBC) [Entitic vol] 93.3 fL 79.6 - 97.7 fL [facility] Platelet mean volume (Bld) [Entitic vol] 10.3 fL 8.5 - 12.2 fL [facility] Platelets (Bld) [#/Vol] 193 10*3/uL 150 - 393 K/uL [facility] RBC (Bld) [#/Vol] 3.14 10*6/uL Low [facility] WBC (Bld) [#/Vol] 5.77 10*3/uL 3.99 - 11. 19 K/uL [facility] Hematocrit (Bld) [Volume fraction] 29.3 % Low 34.9-44.3 [facility] Comment on above: Performed By: #### [place] [facility] [place] #### [facility] (DEFAULT) [address] [place] [address] 56456 Hemoglobin (Bld) [Mass/Vol] 10.2 g/dL Low 11.4-15.2 [facility] Comment on above: Performed By: #### H EMO #### [facility] (DEFAULT) [address] [place] [address] 28113 MCV (RBC) [Entitic vol] 93.3 fL Normal 79.6-97.7 [facility] Comment on above: Performed By: #### H EMO #### [facility] (DEFAULT) [address] [place] [address] 69367 Mean Cell Hgb 32.5 pg Normal 25.9-33.9 [facility] Comment on above: Performed By: #### H EMO #### [facility] (DEFAULT) [address] [place] [address] Mean Cell Hgb Conc 34.8 g/dL Normal 31.4-35.9 [facility] Comment on above: Performed By: #### H EMO #### [facility] (DEFAULT) [address] [place] [address] 11788 Platelet mean volume (Bld) [Entitic vol] 10.3 fL Normal 8.5-12.2 [facility] Comment on above: Performed By: #### H EMO #### [facility] (DEFAULT) [address] [place] [address] 65733 Platelets (Bld) [#/Vol] 193 10*3/uL Normal 150-393 [facility] Comment on above: Performed By: #### H EMO #### [facility] (DEFAULT) [address] [place] [address] 88591 RBC (Bld) [#/Vol] 3.14 10*6/uL Low 3.91-5.04 [facility] Comment on above: Performed By: #### H EMO #### [facility] (DEFAULT) [address] [place] [address] 82536 RBC Distribution 13.2 % Normal 10.8-14.9 [facility] Comment on above: Performed By: #### H EMOGC #### [facility] (DEFAULT) [address] [place] [address] 21655 WBC (Bld) [#/Vol] 5.77 10*3/uL Normal 3.99-11.19 [facility] Comment on above: Performed By: #### H EMO #### [facility] (DEFAULT) [address] [place] [address] 74641 CHEM 7 (LYTES,BUN,CREA,GLUC) on 11-11-2024 Anion gap [Moles/Vol] 12 mmol/L 7 - 17 mmol/L [facility] Chloride [Moles/Vol] 98 mmol/L 98 - 10 8 mmol/L [facility] CO2 [Moles/Vol] 24 mmol/L 21 - 31 mmol/L [facility] Creatinine [Mass/Vol] 0.93 mg/dL 0.50 - 1.20 mg/dL [facility] eGFR, CKD-EPI, Female 62 - PINF [facility] Comment on above: Reported eGFR is bas ed on the CKD-EPI 2020 equation using creatinine, age, and sex. Glucose [Mass/Vol] 95 mg/dL 70 - 179 mg/dL [facility] Interpretation and review of laboratory results Abnormal [facility] Osmolality Calc [Osmolality] 275 Low [facility] Potassium [Moles/Vol] 4.3 mmol/L 3.5 - 5.0 mmol/L [facility] Sodium [Moles/Vol] 130 mmol/L Low 135 - 145 mmol/L [facility] Urea nitrogen [Mass/Vol] 15 mg/dL 7 - 25 mg/dL [facility] Urea nitrogen/Creatinine [Mass ratio] 16 mg/mg [facility] Anion gap [Moles/Vol] 12 mmol/L Normal 7-17 [facility] Comment on above: Performed By: #### M GO, IPB, CHM7, HFP #### [facility] (DEFAULT) [address] [place] [address] 90967 Chloride [Moles/Vol] 98 mmol/L Normal 98-108 [facility] Comment on above: Performed By: #### Harini GO, IPB, CHM7, HFP #### [facility] (DEFAULT) [address] [place] [address] 65614 CO2 [Moles/Vol] 24 mmol/L Normal 21-31 [facility] Comment on above: Performed By: #### M GO, IPB, CHM7, HFP #### [facility] (DEFAULT) [address] [place] [address] 60117 Creatinine [Mass/Vol] 0.93 mg/dL Normal 0.50-1.20 [facility] Comment on above: Performed By: #### M GO, IPB, CHM7, HFP #### [facility] (DEFAULT) [address] [place] [address] 52555 GFR/1.73 sq M.predicted among non-blacks MDRD (S/P/Bld) [Vol rate/Area] 62 mL/min/{1.73_m2} Normal >=60 [facility] Comment on above: Result Comment: Repo rted eGFR is based on the CKD-EPI 2020 equation using creatinine, age, and sex. Performed By: #### Harini ALBERTO IPB, CHM7, HFP #### [facility] (DEFAULT) [address] [place] [address] 55313 Glucose [Mass/Vol] 95 mg/dL Normal Nonfastin -179 mg/dL; Fastin-99 [facility] Comment on above: Performed By: #### IDALIA FUNESB, CHM7, HFP #### [facility] (DEFAULT) [address] [place] [address] 20109 Osmolality [Osmolality] 275 mosm/kg Low 278-305 [facility] Comment on above: Performed By: #### Harini ALBERTO IPB, CHM7, HFP #### [facility] (DEFAULT) [address] [place] [address] 96009 Potassium [Moles/Vol] 4.3 mmol/L Normal 3.5-5.0 [facility] Comment on above: Performed By: #### Harini ALBERTO IPB, CHM7, HFP #### [facility] (DEFAULT) [address] [place] [address] 82036 Sodium [Moles/Vol] 130 mmol/L Low 135-145 [facility] Comment on above: Performed By: #### Harini ALBERTO IPB, CHM7, HFP #### [facility] (DEFAULT) [address] [place] [address] 81988 Urea nitrogen [Mass/Vol] 15 mg/dL Normal 7-25 [facility] Comment on above: Performed By: #### Harini ALBERTO IPB, CHM7, HFP #### [facility] (DEFAULT) [address] [place] [address] 63476 Urea nitrogen/Creatinine [Mass ratio] 16 mg/mg Normal [facility] Comment on above: Performed By: #### M GA ALBERTO CHM7, HFP #### [facility] (DEFAULT) [address] [place] [address] CARDIAC RHYTHMon 11-10-2024 [facility] CBC,PLATELETSon 11-10-2024 Erythrocyte distribution width (RBC) [Ratio] 13.3 % 10.8 - 14.9 % [facility] Hematocrit (Bld) [Volume fraction] 31.4 % Low 34.9 - 44.3 % [facility] Hemoglobin (Bld) [Mass/Vol] 11.1 g/dL Low 11.4 - 15.2 g/dL [facility] Interpretation and review of laboratory results Abnormal [facility] MCH (RBC) [Entitic mass] 33 pg 25.9 - 33.9 pg [facility] MCHC (RBC) [Mass/Vol] 35.4 g/dL 31.4 - 35.9 g/dL [facility] MCV (RBC) [Entitic vol] 93.5 fL 79.6 - 97.7 fL [facility] Platelet mean volume (Bld) [Entitic vol] 10.4 fL 8.5 - 12.2 fL [facility] Platelets (Bld) [#/Vol] 205 10*3/uL 150 - 393 K/uL [facility] RBC (Bld) [#/Vol] 3.36 10*6/uL Low [facility] WBC (Bld) [#/Vol] 9.67 10*3/uL 3.99 - 11. 19 K/uL [facility] Hematocrit (Bld) [Volume fraction] 31.4 % Low 34.9-44.3 [facility] Comment on above: Performed By: #### M GA ALBERTO, TIANA, HFP #### [facility] (DEFAULT) [address] [place] [address] 17366 Hemoglobin (Bld) [Mass/Vol] 11.1 g/dL Low 11.4-15.2 [facility] Comment on above: Performed By: #### M REMY, IPB, CHM7, HFP #### [facility] (DEFAULT) [address] [place] [address] 34037 MCV (RBC) [Entitic vol] 93.5 fL Normal 79.6-97.7 [facility] Comment on above: Performed By: #### M GO, IPB, CHM7, HFP #### [facility] (DEFAULT) [address] [place] [address] 11130 Mean Cell Hgb 33.0 pg Normal 25.9-33.9 [facility] Comment on above: Performed By: #### M GO, IPB, CHM7, HFP #### [facility] (DEFAULT) [address] [place] [address] 69982 Mean Cell Hgb Conc 35.4 g/dL Normal 31.4-35.9 [facility] Comment on above: Performed By: #### M REMY, IPB, CHM7, HFP #### [facility] (DEFAULT) [address] [place] [address] 40739 Platelet mean volume (Bld) [Entitic vol] 10.4 fL Normal 8.5-12.2 [facility] Comment on above: Performed By: #### M REMY, IPB, CHM7, HFP #### [facility] (DEFAULT) [address] [place] [address] 49346 Platelets (Bld) [#/Vol] 205 10*3/uL Normal 150-393 [facility] Comment on above: Performed By: #### M GO, IPB, CHM7, HFP #### [facility] (DEFAULT) [address] [place] [address] 83305 RBC (Bld) [#/Vol] 3.36 10*6/uL Low 3.91-5.04 [facility] Comment on above: Performed By: #### M GO, IPB, CHM7, HFP #### [facility] (DEFAULT) [address] [place] [address] RBC Distribution 13.3 % Normal 10.8-14.9 [facility] Comment on above: Performed By: #### M REMY, IPB, CHM7, HFP #### [facility] (DEFAULT) [address] [place] [address] WBC (Bld) [#/Vol] 9.67 10*3/uL Normal 3.99-11.19 [facility] Comment on above: Performed By: #### M REMY, IPB, CHM7, HFP #### [facility] (DEFAULT) [address] [place] [address] CHEM 7 (LYTES,BUN,CREA,GLUC) on 11-10-2024 Anion gap [Moles/Vol] 13 mmol/L 7 - 17 mmol/L [facility] Chloride [Moles/Vol] 99 mmol/L 98 - 10 8 mmol/L [facility] CO2 [Moles/Vol] 25 mmol/L 21 - 31 mmol/L [facility] Creatinine [Mass/Vol] 0.78 mg/dL 0.50 - 1.20 mg/dL [facility] eGFR, CKD-EPI, Female 77 - PINF [facility] Comment on above: Reported eGFR is bas ed on the CKD-EPI 2020 equation using creatinine, age, and sex. Glucose [Mass/Vol] 96 mg/dL 70 - 179 mg/dL [facility] Interpretation and review of laboratory results Abnormal [facility] Osmolality Calc [Osmolality] 280 [facility] Potassium [Moles/Vol] 4.7 mmol/L 3.5 - 5.0 mmol/L [facility] Sodium [Moles/Vol] 132 mmol/L Low 135 - 145 mmol/L [facility] Urea nitrogen [Mass/Vol] 16 mg/dL 7 - 25 mg/dL [facility] Urea nitrogen/Creatinine [Mass ratio] 21 mg/mg [facility] Anion gap [Moles/Vol] 13 mmol/L Normal 7-17 [facility] Comment on above: Performed By: #### M GA ALBERTO, CHM7, HFP #### [facility] (DEFAULT) [address] [place] [address] 71747 Chloride [Moles/Vol] 99 mmol/L Normal 98-108 [facility] Comment on above: Performed By: #### M GA ALBERTO, CHM7, HFP #### [facility] (DEFAULT) [address] [place] [address] 97605 CO2 [Moles/Vol] 25 mmol/L Normal 21-31 [facility] Comment on above: Performed By: #### GA FUNES, CHM7, HFP #### [facility] (DEFAULT) [address] [place] [address] 02518 Creatinine [Mass/Vol] 0.78 mg/dL Normal 0.50-1.20 [facility] Comment on above: Performed By: #### GA FUNES, CHM7, HFP #### [facility] (DEFAULT) [address] [place] [address] 53978 GFR/1.73 sq M.predicted among non-blacks MDRD (S/P/Bld) [Vol rate/Area] 77 mL/min/{1.73_m2} Normal >=60 [facility] Comment on above: Result Comment: Repo rted eGFR is based on the CKD-EPI 2020 equation using creatinine, age, and sex. Performed By: #### GA FUNES, CHM7, HFP #### [facility] (DEFAULT) [address] [place] [address] 05250 Glucose [Mass/Vol] 96 mg/dL Normal Nonfastin -179 mg/dL; Fastin-99 [facility] Comment on above: Performed By: #### M GA ALBERTO, CHM7, HFP #### [facility] (DEFAULT) [address] [place] [address] 67052 Osmolality [Osmolality] 280 mosm/kg Normal 278-305 [facility] Comment on above: Performed By: #### M GO, IPB, CHM7, HFP #### [facility] (DEFAULT) [address] [place] [address] 21418 Potassium [Moles/Vol] 4.7 mmol/L Normal 3.5-5.0 [facility] Comment on above: Performed By: #### M GO, IPB, CHM7, HFP #### [facility] (DEFAULT) [address] [place] [address] 42689 Sodium [Moles/Vol] 132 mmol/L Low 135-145 [facility] Comment on above: Performed By: #### M GO, IPB, CHM7, HFP #### [facility] (DEFAULT) [address] [place] [address] 16441 Urea nitrogen [Mass/Vol] 16 mg/dL Normal 7-25 [facility] Comment on above: Performed By: #### M GO, IPB, CHM7, HFP #### [facility] (DEFAULT) [address] [address] [place] [id number] Urea nitrogen/Creatinine [Mass ratio] 21 mg/mg Normal [facility] Comment on above: Performed By: #### M GO, IPB, CHM7, HFP #### [facility] (DEFAULT) [address] [place] [phone] MR Brain WO and W contrast I Von 11-10-2024 IMPRESSION: Postoperative changes related at prior left-sided craniectomy and 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 There are areas of encephalomalacia involving the left frontal and parietal lobes. A fluid collection with blood products is again noted at the cranioplasty site. Stable appearance of an area of dural thickening in the left parasagittal region near the vertex. No new/progressive contrast enhancing nodule to suggest recurrence. Stable remote right cerebellar infarct. OLOGY EXAM: MRI BRAIN WITH AND WITHOUT CONTRAST, 11/10/2024 11:55 AM COMPARISON: MRI BRAIN WITH PERFUSION July 11, 2024, MRI [facility]ALTH BRAIN October 09, 2022 CLINICAL INDICATIONS: 78 years Female seizure work up TECHNIQUE: A series of multisequence, multiplanar images of the brain are obtained both before and after intravenous administration of gadolinium-based contrast using standard protocol. CONTRAST: Gadopiclenol SOLN 1-25 mL; Route of Administration: Intravenous; Dose: 6 mL. 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 There are areas of encephalomalacia involving the left frontal and parietal lobes. A fluid collection with blood products is again noted at the cranioplasty site. Stable appearance of a left parasagittal dural thickening near the vertex. No new/progressive contrast enhancing nodule to suggest recurrence. No filling defect within the dural venous sinuses to suggest thrombosis. No restricted diffusion within the brain parenchyma to suggest acute infarct. T2 hyperintense lesion involving the right cerebellar hemispheres consistent with sequela of a remote infarct. Susceptibility weighted imaging shows no evidence of intracranial hemorrhage. There are however remote blood products at the postoperative site. No sellar or parasellar mass is identified. Mild prominence of the ventricles suggesting central parenchymal volume loss. No air-fluid level within the paranasal sinuses. No orbital mass is identified. The mastoids are clear. No contrast enhancing mass is identified involving the skull or visualized upper cervical spine. RADIOLOGY Morgan Fierro MD, MPH - 11/10/2024 EXAM: MRI BRAIN WITH AND WITHOUT CONTRAST, 11/10/2024 11:55 AM COMPARISON: MRI BRAIN WITH PERFUSION July 11, 2024, MRI [facility]ALTH BRAIN October 09, 2022 CLINICAL INDICATIONS: 78 years Female seizure work up TECHNIQUE: A series of multisequence, multiplanar images of the brain are obtained both before and after intravenous administration of gadolinium-based contrast using standard protocol. CONTRAST: Gadopiclenol SOLN 1-25 mL; Route of Administration: Intravenous; Dose: 6 mL. 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 There are areas of encephalomalacia involving the left frontal and parietal lobes. A fluid collection with blood products is again noted at the cranioplasty site. Stable appearance of a left parasagittal dural thickening near the vertex. No new/progressive contrast enhancing nodule to suggest recurrence. No filling defect within the dural venous sinuses to suggest thrombosis. No restricted diffusion within the brain parenchyma to suggest acute infarct. T2 hyperintense lesion involving the right cerebellar hemispheres consistent with sequela of a remote infarct. Susceptibility weighted imaging shows no evidence of intracranial hemorrhage. There are however remote blood products at the postoperative site. No sellar or parasellar mass is identified. Mild prominence of the ventricles suggesting central parenchymal volume loss. No air-fluid level within the paranasal sinuses. No orbital mass is identified. The mastoids are clear. No contrast enhancing mass is identified involving the skull or visualized upper cervical spine. 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 There are areas of encephalomalacia involving the left frontal and parietal lobes. A fluid collection with blood products is again noted at the cranioplasty site. Stable appearance of an area of dural thickening in the left parasagittal region near the vertex. No new/progressive contrast enhancing nodule to suggest recurrence. Stable remote right cerebellar infarct. [facility] Radiology Study observation (narrative) [facility] MRA Head vessels WO contrast on 11-10-2024 IMPRESSION: Occlusion of the right carotid terminus with no flow related signal in the right A1, right M1 and proximal right M2. Mild flow related signal through the distal segments of the right middle cerebral artery likely through collaterals. Occlusion with immediate reconstitution or severe stenoses at the left supraclinoid ICA and proximal left M1 segment. 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 OLOGY EXAM: MRI ARTERIOGRA M BRAIN WITHOUT CONTRAST, 11/10/2024 11:55 AM COMPARISON: MRI BRAIN WITH AND WITHOUT CONTRAST November 10, 2024 CLINICAL INDICATIONS: 78 years Female Seizure work up TECHNIQUE: MR Angiography of the brain is performed using 3D uoae-yb-biweom technique without intravenous contrast. Source images, as well as MIP images with region of interest cut-outs, are provided. FINDINGS: INTERNAL CAROTID ARTERIES: There is either severe stenosis of the left supraclinoid ICA or occlusion with immediate reconstitution since flow related signal is noted in the left carotid terminus. There is occlusion of the right carotid terminus with no flow related signal noted in the right A1 or a right M1. ANTERIOR CEREBRAL ARTERIES: No flow related signal noted in the right A1. The left A1 is patent. Bilateral A2 are widely patent. MIDDLE CEREBRAL ARTERIES: No flow related signal in the right M1 and proximal right M2. The sylvian branches of the right middle cerebral artery show flow related signal but are small in caliber. POSTERIOR CEREBRAL ARTERIES: Suspected severe stenosis at the P2 segments bilaterally. The right posterior cerebral artery originates predominantly from the anterior circulation whereas the left posterior cerebral artery originates predominantly from the posterior circulation. VERTEBRAL ARTERIES: Patent. 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 The remainder of the basilar artery is widely patent. OTHER: No aneurysm or AVM. RADIOLOGY Morgan Fierro MD, MPH - 11/10/2024 EXAM: MRI ARTERIOGRAM BRAIN WITHOUT CONTRAST, 11/10/2024 11:55 AM COMPARISON: MRI BRAIN WITH AND WITHOUT CONTRAST November 10, 2024 CLINICAL INDICATIONS: 78 years Female Seizure work up TECHNIQUE: MR Angiography of the brain is performed using 3D [id number]-ik-[id number] technique without intravenous contrast. Source images, as well as MIP images with region of interest cut-outs, are provided. FINDINGS: INTERNAL CAROTID ARTERIES: There is either severe stenosis of the left supraclinoid ICA or occlusion with immediate reconstitution since flow related signal is noted in the left carotid terminus. There is occlusion of the right carotid terminus with no flow related signal noted in the right A1 or a right M1. ANTERIOR CEREBRAL ARTERIES: No flow related signal noted in the right A1. The left A1 is patent. Bilateral A2 are widely patent. MIDDLE CEREBRAL ARTERIES: No flow related signal in the right M1 and proximal right M2. The sylvian branches of the right middle cerebral artery show flow related signal but are small in caliber. POSTERIOR CEREBRAL ARTERIES: Suspected severe stenosis at the P2 segments bilaterally. The right posterior cerebral artery originates predominantly from the anterior circulation whereas the left posterior cerebral artery originates predominantly from the posterior circulation. VERTEBRAL ARTERIES: Patent. 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 The remainder of the basilar artery is widely patent. OTHER: No aneurysm or AVM. IMPRESSION IMPRESSION: Occlusion of the right carotid terminus with no flow related signal in the right A1, right M1 and proximal right M2. Mild flow related signal through the distal segments of the right middle cerebral artery likely through collaterals. Occlusion with immediate reconstitution or severe stenoses at the left supraclinoid ICA and proximal left M1 segment. 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 [facility] Radiology Study observation (narrative) [facility] MRA Head vessels WO contrast Ordered By: Morgan Fierro on 11-10-2024 [facility] Work Phone: MRA Neck vessels WO and W co ntrast Dina 11-10-2024 IMPRESSION: No large vessel occlusion or significant stenosis involving the carotid or vertebral system in the neck. OLOGY EXAM: MRI ANGIO NECK WITH AND WITHOUT CONTRAST, 11/10/2024 11:56 AM COMPARISON: MRI BRAIN WITH AND WITHOUT CONTRAST November 10, 2024 CLINICAL INDICATIONS: 78 years Female Seizure work up TECHNIQUE: MR Angiography of the Neck is performed precontrast 2D Time of Flight technique, with MIP and source images are provided. MR Angiography of the Neck is performed using contrast enhanced MRA (CEMRA) technique, with 3D gradient echo coronal slabs obtained both before and after intravenous administration of gadolinium based contrast, with MIP and source images provided. CONTRAST: Gadopiclenol SOLN 1-25 mL; Route of Administration: Intravenous; Dose: 6 mL. FINDINGS: AORTIC ARCH: Conventional anatomic origin of the great vessels. No significant stenosis. RIGHT CAROTID ARTERY: Common carotid artery is patent and normal in caliber. Internal carotid artery origin at the bifurcation is patent and normal in caliber. More distal cervical segments of the internal carotid artery are patent and normal in caliber. LEFT CAROTID ARTERY: Common carotid artery is patent and normal in caliber. Internal carotid artery origin at the bifurcation is patent and normal in caliber. More distal cervical segments of the internal carotid artery are patent and normal in caliber. RIGHT VERTEBRAL ARTERY: Origin is patent. More distal cervical segments are patent and normal in caliber. LEFT VERTEBRAL ARTERY: Origin is patent. More distal cervical segments are patent and normal in caliber. OTHER: No dissection or pseudoaneurysm. RADIOLOGY Morgan Fierro MD, MPH - 11/10/2024 EXAM: MRI ANGIO NECK WITH AND WITHOUT CONTRAST, 11/10/2024 11:56 AM COMPARISON: MRI BRAIN WITH AND WITHOUT CONTRAST November 10, 2024 CLINICAL INDICATIONS: 78 years Female Seizure work up TECHNIQUE: MR Angiography of the Neck is performed precontrast 2D Time of Flight technique, with MIP and source images are provided. MR Angiography of the Neck is performed using contrast enhanced MRA (CEMRA) technique, with 3D gradient echo coronal slabs obtained both before and after intravenous administration of gadolinium based contrast, with MIP and source images provided. CONTRAST: Gadopiclenol SOLN 1-25 mL; Route of Administration: Intravenous; Dose: 6 mL. FINDINGS: AORTIC ARCH: Conventional anatomic origin of the great vessels. No significant stenosis. RIGHT CAROTID ARTERY: Common carotid artery is patent and normal in caliber. Internal carotid artery origin at the bifurcation is patent and normal in caliber. More distal cervical segments of the internal carotid artery are patent and normal in caliber. LEFT CAROTID ARTERY: Common carotid artery is patent and normal in caliber. Internal carotid artery origin at the bifurcation is patent and normal in caliber. More distal cervical segments of the internal carotid artery are patent and normal in caliber. RIGHT VERTEBRAL ARTERY: Origin is patent. More distal cervical segments are patent and normal in caliber. LEFT VERTEBRAL ARTERY: Origin is patent. More distal cervical segments are patent and normal in caliber. OTHER: No dissection or pseudoaneurysm. IMPRESSION IMPRESSION: No large vessel occlusion or significant stenosis involving the carotid or vertebral system in the neck. [facility] Radiology Study observation (narrative) [facility] MRI ANGIO NECK WITH AND WITH OUT CONTRASTon 11-10-2024 MRI ANGIO NECK WITH AND WITHOUT CONTRAST EXAM: MRI ANGIO NECK WITH AND WITHOUT CONTRAST, 11/10/2024 11:56 AM COMPARISON: MRI BRAIN WITH AND WITHOUT CONTRAST November 10, 2024 CLINICAL INDICATIONS: 78 years Female Seizure work up TECHNIQUE: MR Angiography of the Neck is performed precontrast 2D Time of Flight technique, with MIP and source images are provided. MR Angiography of the Neck is performed using contrast enhanced MRA (CEMRA) technique, with 3D gradient echo coronal slabs obtained both before and after intravenous administration of gadolinium based contrast, with MIP and source images provided. CONTRAST: Gadopiclenol SOLN 1-25 mL; Route of Administration: Intravenous; Dose: 6 mL. FINDINGS: AORTIC ARCH: Conventional anatomic origin of the great vessels. No significant stenosis. RIGHT CAROTID ARTERY: Common carotid artery is patent and normal in caliber. Internal carotid artery origin at the bifurcation is patent and normal in caliber. More distal cervical segments of the internal carotid artery are patent and normal in caliber. LEFT CAROTID ARTERY: Common carotid artery is patent and normal in caliber. Internal carotid artery origin at the bifurcation is patent and normal in caliber. More distal cervical segments of the internal carotid artery are patent and normal in caliber. RIGHT VERTEBRAL ARTERY: Origin is patent. More distal cervical segments are patent and normal in caliber. LEFT VERTEBRAL ARTERY: Origin is patent. More distal cervical segments are patent and normal in caliber. OTHER: No dissection or pseudoaneurysm. IMPRESSION: No large vessel occlusion or significant stenosis involving the carotid or vertebral system in the neck. Normal [facility] MRI ARTERIOGRAM BRAIN WITHOU T CONTRASTon 11-10-2024 MRI ARTERIOGRAM BRAIN WITHOUT CONTRAST EXAM: MRI ARTERIOGRAM BRAIN WITHOUT CONTRAST, 11/10/2024 11:55 AM COMPARISON: MRI BRAIN WITH AND WITHOUT CONTRAST November 10, 2024 CLINICAL INDICATIONS: 78 years Female Seizure work up TECHNIQUE: MR Angiography of the brain is performed using 3D [id number]-zy-[id number] technique without intravenous contrast. Source images, as well as MIP images with region of interest cut-outs, are provided. FINDINGS: INTERNAL CAROTID ARTERIES: There is either severe stenosis of the left supraclinoid ICA or occlusion with immediate reconstitution since flow related signal is noted in the left carotid terminus. There is occlusion of the right carotid terminus with no flow related signal noted in the right A1 or a right M1. ANTERIOR CEREBRAL ARTERIES: No flow related signal noted in the right A1. The left A1 is patent. Bilateral A2 are widely patent. MIDDLE CEREBRAL ARTERIES: No flow related signal in the right M1 and proximal right M2. The sylvian branches of the right middle cerebral artery show flow related signal but are small in caliber. POSTERIOR CEREBRAL ARTERIES: Suspected severe stenosis at the P2 segments bilaterally. The right posterior cerebral artery originates predominantly from the anterior circulation whereas the left posterior cerebral artery originates predominantly from the posterior circulation. VERTEBRAL ARTERIES: Patent. 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 The remainder of the basilar artery is widely patent. OTHER: No aneurysm or AVM. IMPRESSION: Occlusion of the right carotid terminus with no flow related signal in the right A1, right M1 and proximal right M2. Mild flow related signal through the distal segments of the right middle cerebral artery likely through collaterals. Occlusion with immediate reconstitution or severe stenoses at the left supraclinoid ICA and proximal left M1 segment. 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 Normal [facility] MRI BRAIN WITH AND WITHOUT C [facility] 11-10-2024 MRI BRAIN WITH AND WITHOUT CONTRAST EXAM: MRI BRAIN WITH AND WITHOUT CONTRAST, 11/10/2024 11:55 AM COMPARISON: MRI BRAIN WITH PERFUSION July 11, 2024, MRI [facility]ALTH BRAIN October 09, 2022 CLINICAL INDICATIONS: 78 years Female seizure work up TECHNIQUE: A series of multisequence, multiplanar images of the brain are obtained both before and after intravenous administration of gadolinium-based contrast using standard protocol. CONTRAST: Gadopiclenol SOLN 1-25 mL; Route of Administration: Intravenous; Dose: 6 mL. 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 There are areas of encephalomalacia involving the left frontal and parietal lobes. A fluid collection with blood products is again noted at the cranioplasty site. Stable appearance of a left parasagittal dural thickening near the vertex. No new/progressive contrast enhancing nodule to suggest recurrence. No filling defect within the dural venous sinuses to suggest thrombosis. No restricted diffusion within the brain parenchyma to suggest acute infarct. T2 hyperintense lesion involving the right cerebellar hemispheres consistent with sequela of a remote infarct. Susceptibility weighted imaging shows no evidence of intracranial hemorrhage. There are however remote blood products at the postoperative site. No sellar or parasellar mass is identified. Mild prominence of the ventricles suggesting central parenchymal volume loss. No air-fluid level within the paranasal sinuses. No orbital mass is identified. The mastoids are clear. No contrast enhancing mass is identified involving the skull or visualized upper cervical spine. 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 There are areas of encephalomalacia involving the left frontal and parietal lobes. A fluid collection with blood products is again noted at the cranioplasty site. Stable appearance of an area of dural thickening in the left parasagittal region near the vertex. No new/progressive contrast enhancing nodule to suggest recurrence. Stable remote right cerebellar infarct. Normal [facility] CBC,PLATELETSon 11-09-2024 Erythrocyte distribution width (RBC) [Ratio] 13.2 % 10.8 - 14.9 % [facility] Hematocrit (Bld) [Volume fraction] 28.5 % Low 34.9 - 44.3 % [facility] Hemoglobin (Bld) [Mass/Vol] 10.4 g/dL Low 11.4 - 15.2 g/dL [facility] Interpretation and review of laboratory results Abnormal [facility] MCH (RBC) [Entitic mass] 33.5 pg 25.9 - 33.9 pg [facility] MCHC (RBC) [Mass/Vol] 36.5 g/dL High 31.4 - 35.9 g/dL [facility] MCV (RBC) [Entitic vol] 91.9 fL 79.6 - 97.7 fL [facility] Platelet mean volume (Bld) [Entitic vol] 10.4 fL 8.5 - 12.2 fL [facility] Platelets (Bld) [#/Vol] 182 10*3/uL 150 - 393 K/uL [facility] RBC (Bld) [#/Vol] 3.1 10*6/uL Low [facility] WBC (Bld) [#/Vol] 6.17 10*3/uL 3.99 - 11. 19 K/uL [facility] Hematocrit (Bld) [Volume fraction] 28.5 % Low 34.9-44.3 [facility] Comment on above: Performed By: #### M REMY IPB, CHM7, HFP #### [facility] (DEFAULT) [address] [place] [phone] Hemoglobin (Bld) [Mass/Vol] 10.4 g/dL Low 11.4-15.2 [facility] Comment on above: Performed By: #### Harini ALBERTO IPB, CHM7, HFP #### [facility] (DEFAULT) [address] [place] [address] [phone] MCV (RBC) [Entitic vol] 91.9 fL Normal 79.6-97.7 [facility] Comment on above: Performed By: #### M REMY IPB, CHM7, HFP #### [facility] (DEFAULT) [address] [place] [address] [phone] Mean Cell Hgb 33.5 pg Normal 25.9-33.9 [facility] Comment on above: Performed By: #### M REMY IPB, CHM7, HFP #### [facility] (DEFAULT) [address] [place] [address] [phone] Mean Cell Hgb Conc 36.5 g/dL High 31.4-35.9 [facility] Comment on above: Performed By: #### M REMY IPB, CHM7, HFP #### [facility] (DEFAULT) [address] [place] [address] [phone] Platelet mean volume (Bld) [Entitic vol] 10.4 fL Normal 8.5-12.2 [facility] Comment on above: Performed By: #### M REMY IPB, CHM7, HFP #### [facility] (DEFAULT) [address] [place] [address] [phone] Platelets (Bld) [#/Vol] 182 10*3/uL Normal 150-393 [facility] Comment on above: Performed By: #### M REMY IPB, CHM7, HFP #### [facility] (DEFAULT) [address] [place] [address] [phone] RBC (Bld) [#/Vol] 3.10 10*6/uL Low 3.91-5.04 [facility] Comment on above: Performed By: #### M REMY IPB, CHM7, HFP #### [facility] (DEFAULT) [address] [place] [address] [phone] RBC Distribution 13.2 % Normal 10.8-14.9 [facility] Comment on above: Performed By: #### Harini GO IPB, CHM7, HFP #### [facility] (DEFAULT) [address] [place] [address] [phone] WBC (Bld) [#/Vol] 6.17 10*3/uL Normal 3.99-11.19 [facility] Comment on above: Performed By: #### Harini ALBERTO IPB, CHM7, HFP #### [facility] (DEFAULT) [address] [place] [address] [phone] CHEM 7 (LYTES,BUN,CREA,GLUC) on 11-09-2024 Anion gap [Moles/Vol] 11 mmol/L 7 - 17 mmol/L [facility] Chloride [Moles/Vol] 100 mmol/L 98 - 10 8 mmol/L [facility] CO2 [Moles/Vol] 26 mmol/L 21 - 31 mmol/L [facility] Creatinine [Mass/Vol] 0.97 mg/dL 0.50 - 1.20 mg/dL [facility] eGFR, CKD-EPI, Female 57 Low - PINF [facility] Comment on above: Reported eGFR is bas ed on the CKD-EPI 2020 equation using creatinine, age, and sex. Glucose [Mass/Vol] 110 mg/dL 70 - 179 mg/dL [facility] Osmolality Calc [Osmolality] 283 [facility] Potassium [Moles/Vol] 4.2 mmol/L 3.5 - 5.0 mmol/L [facility] Sodium [Moles/Vol] 133 mmol/L Low 135 - 145 mmol/L [facility] Urea nitrogen [Mass/Vol] 20 mg/dL 7 - 25 mg/dL [facility] Urea nitrogen/Creatinine [Mass ratio] 21 mg/mg [facility] Anion gap [Moles/Vol] 11 mmol/L Normal 7-17 [facility] Comment on above: Performed By: #### GA FUNES, CARLM7, HFP #### [facility] (DEFAULT) [address] [place] [address] [phone] Chloride [Moles/Vol] 100 mmol/L Normal 98-108 [facility] Comment on above: Performed By: #### GA FUNES, KARL7, HFP #### [facility] (DEFAULT) [address] [place] [address] 92748 CO2 [Moles/Vol] 26 mmol/L Normal 21-31 [facility] Comment on above: Performed By: #### GA FUNES, CHM7, HFP #### [facility] (DEFAULT) [address] [place] [address] 41010 Creatinine [Mass/Vol] 0.97 mg/dL Normal 0.50-1.20 [facility] Comment on above: Performed By: #### GA FUNES, CHM7, HFP #### [facility] (DEFAULT) [address] [place] [address] 80283 GFR/1.73 sq M.predicted among non-blacks MDRD (S/P/Bld) [Vol rate/Area] 59 mL/min/{1.73_m2} Low >=60 [facility] Comment on above: Result Comment: Repo rted eGFR is based on the CKD-EPI 2020 equation using creatinine, age, and sex. Performed By: #### Harini ALBERTO, IPB, CHM7, HFP #### [facility] (DEFAULT) [address] [place] [address] 62716 Glucose [Mass/Vol] 110 mg/dL Normal Nonfastin -179 mg/dL; Fastin-99 [facility] Comment on above: Performed By: #### Harini ALBERTO, IPB, CHM7, HFP #### [facility] (DEFAULT) [address] [place] [address] 36061 Osmolality [Osmolality] 283 mosm/kg Normal 278-305 [facility] Comment on above: Performed By: #### M REMY IPB, CHM7, HFP #### [facility] (DEFAULT) [address] [place] [address] 53820 Potassium [Moles/Vol] 4.2 mmol/L Normal 3.5-5.0 [facility] Comment on above: Performed By: #### Harini ALBERTO IPB, CHM7, HFP #### [facility] (DEFAULT) [address] [place] [address] 53786 Sodium [Moles/Vol] 133 mmol/L Low 135-145 [facility] Comment on above: Performed By: #### M REMY, IPB, CHM7, HFP #### [facility] (DEFAULT) [address] [place] [address] 83949 Urea nitrogen [Mass/Vol] 20 mg/dL Normal 7-25 [facility] Comment on above: Performed By: #### M GO, IPB, CHM7, HFP #### [facility] (DEFAULT) [address] [place] [address] 13616 Urea nitrogen/Creatinine [Mass ratio] 21 mg/mg Normal [facility] Comment on above: Performed By: #### M GO, IPB, CHM7, HFP #### [facility] (DEFAULT) [address] [place] [address] 90738 GENERAL PROCEDUREon 11-10-19 FABY Jacques - 11/09/2024 8:56 AM EDT Inpatient routine EEG report: History: 78 yo F with h/o HTN, HLD, pAF on eliquis, 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 Indication: evaluate for possible seizure Technical Description: This is a 21-channel digital EEG recording with time-locked video and single-channel electrocardiogram. Electrodes are placed according to the 10 to 20 International System. . The patient was monitored continuously by EEG technicians by video and EEG recording was reviewed intermittently with annotations to the EEG record made . Portions of this record are reviewed using bandpass filters of 1 to 70 Hz and sensitivity of 7mV/mm. EEG DESCRIPTION Background: This recording was obtained during awake and drowsy state. In the maximally alert state, a posterior dominant rhythm was a symmetric, reactive, well-modulated 8-9 Hz with a normal frequency-amplitude gradient over right hemisphere and 6-7 over left hemisphere. During drowsiness, there was attenuation of the waking background. Stage II sleep architecture was not present. Background was comprised of continuous left hemispheric polymorphic theta slow activity. Activation Procedures: none Sporadic Epileptiform Discharges: none Focal slow activity: Continuous left hemispheric polymorphic theta slow activity. Rhythmic or Periodic activity: none Seizures:none Patient Events: none EEG DIAGNOSIS Focal slow activity over left hemisphere CLINICAL INTERPRETATION This routine EEG is indicative of structural lesion over left hemisphere. No epileptiform discharges or seizures were noted during this period of recording. Brittaney Ferraro MD Interventionist Department of Neurology and Epilepsy [facility] Radiology Study observation (narrative) [facility] HEPATIC FUNCTION PANELon Albumin [Mass/Vol] 3.7 g/dL 3.5 - 5.0 g/dL [facility] ALP [Catalytic activity/Vol] 64 U/L 32 - 126 U/L [facility] ALT [Catalytic activity/Vol] 64 U/L High 9 - 48 U/L [facility] AST [Catalytic activity/Vol] 41 U/L High 10 - 39 U/L [facility] Bilirubin [Mass/Vol] 1 mg/dL NINF - 1.5 mg/dL [facility] Bilirubin.direct [Mass/Vol] 0.2 mg/dL NINF - 0.3 mg/dL [facility] Protein [Mass/Vol] 5.9 g/dL Low 6.4 - 8.3 g/dL [facility] Albumin [Mass/Vol] 3.7 g/dL Normal 3.5-5.0 [facility] Comment on above: Performed By: #### M GO, IPB, CHM7, HFP #### [facility] (DEFAULT) [address] [place] [address] 64130 ALP [Catalytic activity/Vol] 64 U/L Normal 32-126 [facility] Comment on above: Performed By: #### M GO IPB, CHM7, HFP #### [facility] (DEFAULT) [address] [place] [address] 03982 ALT [Catalytic activity/Vol] 64 U/L High 9-48 [facility] Comment on above: Performed By: #### M GO IPB, CHM7, HFP #### [facility] (DEFAULT) [address] [place] [address] 84099 AST [Catalytic activity/Vol] 41 U/L High 10-39 [facility] Comment on above: Performed By: #### M GO, IPB, CHM7, HFP #### [facility] (DEFAULT) [address] [place] [address] 67170 Bilirubin [Mass/Vol] 1.0 mg/dL Normal <1.5 [facility] Comment on above: Performed By: #### M GO, IPB, CHM7, HFP #### [facility] (DEFAULT) [address] [place] [address] 45689 Bilirubin.indirect [Mass/Vol] 0.2 mg/dL Normal <0.3 [facility] Comment on above: Performed By: #### M GO, IPB, CHM7, HFP #### [facility] (DEFAULT) [address] [place] [address] 28763 Protein [Mass/Vol] 5.9 g/dL Low 6.4-8.3 [facility] Comment on above: Performed By: #### M GA ALBERTO, CHM7, HFP #### [facility] (DEFAULT) [address] [place] [address] 68066 MAGNESIUMon 11-09-2024 Magnesium [Mass/Vol] 1.9 mg/dL 1.6 - 2 .6 mg/dL [facility] Magnesium [Mass/Vol] 1.9 mg/dL Normal 1.6-2.6 [facility] Comment on above: Performed By: #### GA FUNES, CHM7, HFP #### [facility] (DEFAULT) [address] [place] [address] 20083 No Panel Informationon 11-09 Interpretation and review of laboratory results Normal [facility] Interpretation and review of laboratory results Abnormal [facility] PHOSPHATE, INORGANICon 11-09 Phosphate [Mass/Vol] 3.6 mg/dL 2.2 - 4 .6 mg/dL [facility] Phosphorous 3.6 mg/dL Normal 2.2-4.6 [facility] Comment on above: Performed By: #### GA FUNES, CHM7, HFP #### [facility] (DEFAULT) [address] [place] [address] 95676 PT,INR,PTTon 11-09-2024 aPTT Coag (PPP) [Time] 31.6 s [facility] INR Coag (Bld) [Relative time] 1.1 {INR} 0.9 - 1.1 [facility] Interpretation and review of laboratory results Normal [facility] PT Coag (PPP) [Time] 14 s [facility] aPTT Coag (Bld) [Time] 31.6 s Normal 24.0-34.3 [facility] Comment on above: Performed By: #### M REMY, IPB, CHM7, HFP #### [facility] (DEFAULT) [address] [place] [address] 70999 INR Coag (PPP) [Relative time] 1.1 {INR} Normal 0.9-1.1 [facility] Comment on above: Performed By: #### M GO, IPB, CHM7, HFP #### [facility] (DEFAULT) [address] [place] [address] 74229 PT Coag (PPP) [Time] 14.0 s Normal 11.9-14.2 [facility] Comment on above: Performed By: #### M REMY, IPB, CHM7, HFP #### [facility] (DEFAULT) [address] [place] [address] 86196 EXTRA MICROon 11-08-2024 [facility] 12 Lead EKGon 11-07-2024 12 Lead EKG [facility] Cardiovascular Services [address] [place] [address] 32264 12 Lead EKG 11/07/24 1110 MR#: [id number] Acct: [id number] Name: SARAH MCGUIRE Rep #: [id number] : 1945 78 From: Gemma Cordova MD Attending Dr: Dr. [place] Anand MD Status: DEP ER Ordering Dr: [place] Anand MD Date: 11/07/24 Location: ED Sex: F C Admitted: Test Reason : STROKE Blood Pressure : */* mmHG Vent. Rate : 49 BPM Atrial Rate : 49 BPM P-R Int : 176 ms QRS Dur : 76 ms QT Int : 484 ms P-R-T Axes : 53 31 57 degrees QTcB Int : 437 ms Sinus bradycardia Otherwise normal ECG Confirmed by STEW DEL VALLE, LORENA ([id number]), tape editor ARETHA GARCIA ([id number]) on 11/12/2024 7:10:59 AM Referred By: Confirmed By: LORENA CORDOVA MD 11/12/24 07 Date Gemma Cordova MD CC: Dr. Monika Venegas MD; Dr. [place] Anand MD Signed Normal [facility] ALCOHOL (ETHANOL),BLOODon Ethanol Ql (Bld) mg/dL NINF - 10 mg/dL [facility] Interpretation and review of laboratory results Normal [facility] Alcohol, Serum <10 Normal <10 [facility] Comment on above: Order Comment: Non-f lesic. Performed By: #### M GO, IPB, CHM7, HFP #### [facility] (DEFAULT) [address] [place] [address] Basic Metabolic Profile (BMP )on 11-07-2024 BUN/CRE 22.3 RATIO High 10-20 [facility] Comment on above: Performed By: #### L 501.9520, L506.0400, L501.49404 #### [facility] [address] [place], [address] Calcium [Mass/Vol] 9.1 mg/dL Normal 7.6-11.0 [facility] Comment on above: Performed By: #### L 501.9520, L506.0400, [id number] #### [facility] [address] [place], [address] Chloride [Moles/Vol] 98 mmol/L Normal 98-108 [facility] Comment on above: Performed By: #### L 501.9520, L506.0400, [id number] #### [facility] [address] [place], [address] CO2 [Moles/Vol] 23.7 mmol/L Normal 21.0-32.0 [facility] Comment on above: Performed By: #### L 501.9520, L506.0400, L501.63609 #### [facility] [address] [place], [address] Creatinine [Mass/Vol] 1.04 mg/dL Normal 0.70-1.20 [facility] Comment on above: Performed By: #### L 501.9520, L506.0400, L501.44218 #### [facility] [address] [place], [address] ECRCL 30.99 ml/min Low 50-250 [facility] Comment on above: Performed By: #### L 501.9520, L506.0400, L501.05155 #### [facility] [address] [place], [address] GAP 9 Normal 5-15 [facility] Comment on above: Performed By: #### L 501.9520, L506.0400, [id number] #### [facility] [address] [place], [address] GFR/1.73 sq M.predicted among non-blacks MDRD (S/P/Bld) [Vol rate/Area] 54 mL/min/{1.73_m2} Low >60 [facility] Comment on above: Result Comment: mL/m in/1.73m2 CKD-EPI Creatinine Equation (2020) Performed By: #### L 501.9520, L506.0400, L501.13335 #### [facility] [address] [place], [address] Glucose [Mass/Vol] 101 mg/dL High 70-99 [facility] Comment on above: Performed By: #### L 501.9520, L506.0400, L501.27957 #### [facility] [address] [place], [address] Potassium [Moles/Vol] 4.5 mmol/L Normal 3.3-5.1 [facility] Comment on above: Performed By: #### L 501.9520, L506.0400, L501.53976 #### [facility] [address] [place], [address] Sodium [Moles/Vol] 131 mmol/L Low 133-145 [facility] Comment on above: Performed By: #### L 501.9520, L506.0400, [id number] #### [facility] [address] [place], [address] Urea nitrogen [Mass/Vol] 23 mg/dL High 4-19 [facility] Comment on above: Performed By: #### L 501.9520, L506.0400, L501.27952 #### [facility] [address] [place], [address] Bedside Glucoseon 11-07-2024 FINGERSTICK GLU 99 mg/dL Normal 74-106 [facility] Comment on above: Result Comment: REJI KUMAR OF PATIENT CARE PER NURSING PROTOCOL Performed By: #### L 300.4310, L300.3900 #### [facility] [address] [place], [address] CBC AND ELECTRONIC DIFFon Basophils (Bld) [#/Vol] K/uL 0.00 - 0.15 K/uL [facility] Basophils/100 WBC (Bld) 0.3 % [facility] Differential cell count method Nom (Bld) Electronic Differential [facility] Eosinophils (Bld) [#/Vol] K/uL 0.00 - 0.42 K/uL [facility] Eosinophils/100 WBC (Bld) 0.4 % [facility] Erythrocyte distribution width (RBC) [Ratio] 13.1 % 10.8 - 14.9 % [facility] Hematocrit (Bld) [Volume fraction] 29 % Low 34.9 - 44.3 % [facility] Hemoglobin (Bld) [Mass/Vol] 10.5 g/dL Low 11.4 - 15.2 g/dL [facility] Immature granulocytes (Bld) [#/Vol] K/uL NINF - 0.08 K/uL [facility] Immature granulocytes/100 WBC (Bld) 0.4 % [facility] Interpretation and review of laboratory results Abnormal [facility] Lymphocytes (Bld) [#/Vol] 0.69 10*3/uL Low 1.16 - 3.51 K/uL [facility] Lymphocytes/100 WBC (Bld) 10.2 % [facility] MCH (RBC) [Entitic mass] 33.1 pg 25.9 - 33.9 pg [facility] MCHC (RBC) [Mass/Vol] 36.2 g/dL High 31.4 - 35.9 g/dL [facility] MCV (RBC) [Entitic vol] 91.5 fL 79.6 - 97.7 fL [facility] Monocytes (Bld) [#/Vol] 0.62 10*3/uL 0.22 - 0.87 K/uL [facility] Monocytes/100 WBC (Bld) 9.2 % [facility] Neutrophils (Bld) [#/Vol] 5.35 10*3/uL 1.64 - 7.28 K/uL [facility] Nucleated RBC/100 WBC (Bld) [Ratio] 0 % [facility] Platelet mean volume (Bld) [Entitic vol] 10 fL 8.5 - 12.2 fL [facility] Platelets (Bld) [#/Vol] 169 10*3/uL 150 - 393 K/uL [facility] RBC (Bld) [#/Vol] 3.17 10*6/uL Low [facility] Segmented neutrophils/100 WBC (Bld) 79.5 % [facility] WBC (Bld) [#/Vol] 6.74 10*3/uL 3.99 - 11. 19 K/uL [facility] Abs Baso Auto < Normal 0.00-0.15 [facility] Comment on above: Performed By: #### M REMY IPB, CHM7, HFP #### [facility] (DEFAULT) [address] [place] [address] 68178 Abs Eos Auto < Normal 0.00-0.42 [facility] Comment on above: Performed By: #### M REMY, IPB, CHM7, HFP #### [facility] (DEFAULT) [address] [place] [address] 98894 Basophils/100 WBC (Bld) 0.3 % Normal [facility] Comment on above: Performed By: #### M REMY IPB, CHM7, HFP #### [facility] (DEFAULT) [address] [place] [address] 88762 DIFF STATUS Electronic Differential Normal [facility] Comment on above: Performed By: #### Harini ALBERTO IPB, CHM7, HFP #### [facility] (DEFAULT) [address] [place] [address] 55570 Eosinophils/100 WBC (Bld) 0.4 % Normal [facility] Comment on above: Performed By: #### M REMY IPB, CHM7, HFP #### [facility] (DEFAULT) [address] [place] [address] 01554 Hematocrit (Bld) [Volume fraction] 29.0 % Low 34.9-44.3 [facility] Comment on above: Performed By: #### M REMY, IPB, CHM7, HFP #### [facility] (DEFAULT) [address] [place] [address] 51979 Hemoglobin (Bld) [Mass/Vol] 10.5 g/dL Low 11.4-15.2 [facility] Comment on above: Performed By: #### M GO, IPB, CHM7, HFP #### [facility] (DEFAULT) [address] [place] [address] 29374 Immature Grans % 0.4 % Normal [facility] Comment on above: Performed By: #### M GO, IPB, CHM7, HFP #### [facility] (DEFAULT) [address] [place] [address] 54605 Immature Grans Absolute < Normal <=0.08 [facility] Comment on above: Performed By: #### M GO, IPB, CHM7, HFP #### [facility] (DEFAULT) [address] [place] [address] 47395 Lymphocytes (Bld) [#/Vol] 0.69 10*3/uL Low 1.16-3.51 [facility] Comment on above: Performed By: #### M GO, IPB, CHM7, HFP #### [facility] (DEFAULT) [address] [place] [address] 56547 Lymphocytes/100 WBC (Bld) 10.2 % Normal [facility] Comment on above: Performed By: #### M GO, IPB, CHM7, HFP #### [facility] (DEFAULT) [address] [place] [address] 19479 MCV (RBC) [Entitic vol] 91.5 fL Normal 79.6-97.7 [facility] Comment on above: Performed By: #### M GO, IPB, CHM7, HFP #### [facility] (DEFAULT) [address] [place] [address] 51442 Mean Cell Hgb 33.1 pg Normal 25.9-33.9 [facility] Comment on above: Performed By: #### M GO, IPB, CHM7, HFP #### [facility] (DEFAULT) [address] [place] [address] 70428 Mean Cell Hgb Conc 36.2 g/dL High 31.4-35.9 [facility] Comment on above: Performed By: #### M GO, IPB, CHM7, HFP #### [facility] (DEFAULT) [address] [place] [address] 92578 Monocytes (Bld) [#/Vol] 0.62 10*3/uL Normal 0.22-0.87 [facility] Comment on above: Performed By: #### M IDALIA ALBERTOB, CHM7, HFP #### [facility] (DEFAULT) [address] [place] [address] 23882 Monocytes/100 WBC (Bld) 9.2 % Normal [facility] Comment on above: Performed By: #### Harini ALBERTO IPB, CHM7, HFP #### [facility] (DEFAULT) [address] [place] [address] 60145 Nucleated RBC 0.0 /100 WBC Normal <=0.2 [facility] Comment on above: Performed By: #### Harini ALBERTO IPB, CHM7, HFP #### [facility] (DEFAULT) [address] [place] [address] 31387 Platelet mean volume (Bld) [Entitic vol] 10.0 fL Normal 8.5-12.2 [facility] Comment on above: Performed By: #### Harini ALBERTO IPB, CHM7, HFP #### [facility] (DEFAULT) [address] [place] [address] 13101 Platelets (Bld) [#/Vol] 169 10*3/uL Normal 150-393 [facility] Comment on above: Performed By: #### M REMY IPB, CHM7, HFP #### [facility] (DEFAULT) [address] [place] [address] 09862 RBC (Bld) [#/Vol] 3.17 10*6/uL Low 3.91-5.04 [facility] Comment on above: Performed By: #### Harini ALBERTO IPB, CHM7, HFP #### [facility] (DEFAULT) [address] [place] [address] 02592 RBC Distribution 13.1 % Normal 10.8-14.9 [facility] Comment on above: Performed By: #### Harini ALBERTO IPB, CHM7, HFP #### [facility] (DEFAULT) [address] [place] [address] 92835 Segs + Bands Auto 79.5 % Normal [facility] Comment on above: Performed By: #### M REMY, IPB, CHM7, HFP #### [facility] (DEFAULT) [address] [place] [address] 83799 Segs + Bands,Absolute Auto 5.35 K/uL Normal 1.64-7.28 [facility] Comment on above: Performed By: #### M REMY, IPB, CHM7, HFP #### [facility] (DEFAULT) [address] [place] [address] 78540 WBC (Bld) [#/Vol] 6.74 10*3/uL Normal 3.99-11.19 [facility] Comment on above: Performed By: #### M REMY IPB, CHM7, HFP #### [facility] (DEFAULT) [address] [place] [address] 68960 CBC W/Diff, Automatedon 06-0 4-2025 Absolute Lymph 0.62 X10 3/uL Low 0.83-4.51 [facility] Comment on above: Performed By: #### L 501.9520, L506.0400, L501.32296 #### [facility] [address] [place], [address] Absolute Neut 5.3 X10 3/uL Normal 2.0-7.7 [facility] Comment on above: Performed By: #### L 501.9520, L506.0400, L501.24668 #### [facility] [address] [place], [address] Basophils/100 WBC (Bld) 0.3 % Normal 0-1 [facility] Comment on above: Performed By: #### L 501.9520, L506.0400, L501.96054 #### [facility] [address] [place], [address] Eosinophils/100 WBC (Bld) 0.4 % Normal 0-5 [facility] Comment on above: Performed By: #### L 501.9520, L506.0400, L501.58514 #### [facility] [address] [place], [address] Erythrocyte distribution width (RBC) [Ratio] 13.3 % Normal 11.6-14.6 [facility] Comment on above: Performed By: #### L 501.9520, L506.0400, L501.14944 #### [facility] [address] [place], [address] Hematocrit (Bld) [Volume fraction] 28.5 % Low 37-47 [facility] Comment on above: Performed By: #### L 501.9520, L506.0400, L501.10588 #### [facility] [address] [place], [address] Hemoglobin (Bld) [Mass/Vol] 10.2 g/dL Low 12.0-15.0 [facility] Comment on above: Performed By: #### L 501.9520, L506.0400, L501.48914 #### [facility] [address] [place], [address] IG% 0.900 Normal 0.0-0.9 [facility] Comment on above: Result Comment: IG% - Immature Granulocytes (promyelocytes, myelocytes and metamyelocytes) > 1% indicates that a LEFT SHIFT is Present. Performed By: #### L 501.9520, L506.0400, L501.85122 #### [facility] [address] [place], [address] Lymphocytes/100 WBC (Bld) 9.3 % Low 19-41 [facility] Comment on above: Performed By: #### L 501.9520, L506.0400, L501.14704 #### [facility] [address] [place], [address] MCH (RBC) [Entitic mass] 33.0 pg High 27.0-32.0 [facility] Comment on above: Performed By: #### L 501.9520, L506.0400, L501.94502 #### [facility] [address] [place], [place], [address] MCHC (RBC) [Mass/Vol] 35.8 g/dL Normal 32-36 [facility] [place] [facility] Comment on above: Performed By: #### L [id number], L506.0400, L501.05897 #### [facility] [address] [place], [address] MCV (RBC) [Entitic vol] 92.2 fL Normal 81-[address] [facility] Comment on above: Performed By: #### L [id number], L506.0400, L501.96273 #### [facility] [address] [place], [address] Monocytes/100 WBC (Bld) 9.9 % Normal 0-[address] [facility] Comment on above: Performed By: #### L [id number], L506.0400, [id number] #### [facility] [address] [place], [address] Neutrophils/100 WBC (Bld) 79.2 % High 47-70 [facility] Comment on above: Performed By: #### L [id number], L506.0400, L501.60599 #### [facility] [address] [place], [address] Nucleated RBC (Bld) [#/Vol] 0 10*3/uL Normal 0-5 [facility] Comment on above: Performed By: #### L [id number], L506.0400, L501.56910 #### [facility] [address] [place], [address] Platelet mean volume (Bld) [Entitic vol] 9.8 fL Normal 6.2-12.0 [facility] Comment on above: Performed By: #### L [id number], L506.0400, L501.10474 #### [facility] [address] [place], [address] Platelets (Bld) [#/Vol] 194 10*3/uL Normal 150-450 [facility] Comment on above: Performed By: #### L [id number], L506.0400, L501.61813 #### [facility] [address] [place], [address] RBC (Bld) [#/Vol] 3.09 10*6/uL Low 4.2-5.4 [facility] Comment on above: Performed By: #### L [id number], L506.0400, L501.65269 #### [facility] [address] [place], [address] RDW SD 45.2 fl High 35.1-43.9 [facility] Comment on above: Performed By: #### L [id number], L506.0400, L501.42119 #### [facility] [address] [place], [address] WBC (Bld) [#/Vol] 6.7 10*3/uL Normal 4.4-11.0 [facility] Comment on above: Performed By: #### L [id number], L506.0400, L501.87773 #### [facility] [address] [place], [address] CHM 7 - EDon 11-07-2024 Anion gap [Moles/Vol] 15 mmol/L 7 - 17 mmol/L [facility] Chloride [Moles/Vol] 100 mmol/L 98 - 10 8 mmol/L [facility] CO2 [Moles/Vol] 21 mmol/L 21 - 31 mmol/L [facility] Creatinine [Mass/Vol] 0.93 mg/dL 0.50 - 1.20 mg/dL [facility] eGFR, CKD-EPI, Female 62 - PINF [facility] Comment on above: Reported eGFR is bas ed on the CKD-EPI 2020 equation using creatinine, age, and sex. Glucose [Mass/Vol] 107 mg/dL 70 - 179 mg/dL [facility] Interpretation and review of laboratory results Abnormal [facility] Osmolality Calc [Osmolality] 281 [facility] Potassium [Moles/Vol] 4.5 mmol/L 3.5 - 5.0 mmol/L [facility] Sodium [Moles/Vol] 131 mmol/L Low 135 - 145 mmol/L [facility] Urea nitrogen [Mass/Vol] 22 mg/dL 7 - 25 mg/dL [facility] Urea nitrogen/Creatinine [Mass ratio] 24 mg/mg [facility] Anion gap [Moles/Vol] 15 mmol/L Normal 7-17 [facility] Comment on above: Performed By: #### GA FUNES, CHM7, HFP #### [facility] (DEFAULT) [address] [place] [address] Chloride [Moles/Vol] 100 mmol/L Normal 98-108 [facility] Comment on above: Performed By: #### GA FUNES, CHM7, HFP #### [facility] (DEFAULT) [address] [place] [address] CO2 [Moles/Vol] 21 mmol/L Normal 21-31 [facility] Comment on above: Performed By: #### GA FUNES, CHM7, HFP #### [facility] (DEFAULT) [address] [place] [address] Creatinine [Mass/Vol] 0.93 mg/dL Normal 0.50-1.20 [facility] Comment on above: Performed By: #### GA FUNES CHM7, HFP #### [facility] (DEFAULT) [address] [place] [address] GFR/1.73 sq M.predicted among non-blacks MDRD (S/P/Bld) [Vol rate/Area] 62 mL/min/{1.73_m2} Normal >=60 [facility] Comment on above: Result Comment: Repo rted eGFR is based on the CKD-EPI 2020 equation using creatinine, age, and sex. Performed By: #### GA FUNES CHM7, HFP #### [facility] (DEFAULT) [address] [place] [address] Glucose [Mass/Vol] 107 mg/dL Normal Nonfastin -179 mg/dL; Fastin-99 [facility] Comment on above: Performed By: #### GA FUNES CHM7, HFP #### [facility] (DEFAULT) [address] [place] [address] Osmolality [Osmolality] 281 mosm/kg Normal 278-305 [facility] Comment on above: Performed By: #### GA FUNES, CHM7, HFP #### [facility] (DEFAULT) [address] [place] [address] Potassium [Moles/Vol] 4.5 mmol/L Normal 3.5-5.0 [facility] Comment on above: Performed By: #### GA FUNES, CHM7, HFP #### [facility] (DEFAULT) [address] [place] [address] Sodium [Moles/Vol] 131 mmol/L Low 135-145 [facility] Comment on above: Performed By: #### GA FUNES, CHM7, HFP #### [facility] (DEFAULT) [address] [place] [address] Urea nitrogen [Mass/Vol] 22 mg/dL Normal 7-25 [facility] Comment on above: Performed By: #### M REMY, IPB, CHM7, HFP #### [facility] (DEFAULT) [address] [place] [address] Urea nitrogen/Creatinine [Mass ratio] 24 mg/mg Normal [facility] Comment on above: Performed By: #### M GO, IPB, CHM7, HFP #### [facility] (DEFAULT) [address] [place] [address] CT Cervical spine WO contras ton 11-07-2024 IMPRESSION: No acute fracture or traumatic malalignment. OLOGY EXAM: CT SPINE CERVI DANIELLA WITHOUT CONTRAST, 11/07/2024 13:43 PM COMPARISON: No prior studies available for comparison. CLINICAL INDICATIONS: Trauma Age: 78 years Gender: Female TECHNIQUE: A series of transaxial multislice computed tomographic thin-section source images are obtained with helical technique from the clivus to the upper thoracic spine without intravenous contrast. Reformats: Axial, sagittal, and coronal. FINDINGS: Alignment is normal. Vertebral bodies are normal in height. No acute fracture. Prevertebral and other paraspinal soft tissues are within normal limits. Intervertebral discs are within normal limits in height for age. No high-grade canal or foraminal stenosis. Skull base and craniocervical junction are within normal limits. RADIOLOGY Zahida Zuniga MD - 11/07/2024 EXAM: CT SPINE CERVICAL WITHOUT CONTRAST, 11/07/2024 13:43 PM COMPARISON: No prior studies available for comparison. CLINICAL INDICATIONS: Trauma Age: 78 years Gender: Female TECHNIQUE: A series of transaxial multislice computed tomographic thin-section source images are obtained with helical technique from the clivus to the upper thoracic spine without intravenous contrast. Reformats: Axial, sagittal, and coronal. FINDINGS: Alignment is normal. Vertebral bodies are normal in height. No acute fracture. Prevertebral and other paraspinal soft tissues are within normal limits. Intervertebral discs are within normal limits in height for age. No high-grade canal or foraminal stenosis. Skull base and craniocervical junction are within normal limits. IMPRESSION IMPRESSION: No acute fracture or traumatic malalignment. [facility] Radiology Study observation (narrative) [facility] CT HEAD WITHOUT CONTRASTon 0 11-07-2024 CT HEAD WITHOUT CONTRAST EXAM: CT HEAD WITHOUT CONTRAST, 11/07/2024 1:42 PM COMPARISON: CT HEAD (OUTSIDE IMAGE) December 24, 2022. CLINICAL INDICATIONS: Trauma Age: 78 years Gender: Female TECHNIQUE: A series of transaxial computed tomographic images were obtained from the base of the skull to the vertex without intravenous contrast. Axial whole-head and thin-section posterior fossa images were provided. Reformats: Sagittal and coronal. FINDINGS: Status post left-sided craniectomy/cranioplast y. Again present is a predominantly hypoattenuating extra-axial fluid collection deep to the cranioplasty, mildly increased in size since December 2022. There are some indistinctly marginated nodular isoattenuating to mildly hyperattenuating findings along the deep margin of this extra-axial collection that are new from December 2022. This is nonspecific and could represent scarring, blood, or recurrent neoplasm. An MRI brain with and without contrast would offer better characterization of this finding. Chronic encephalomalacic findings peripherally in the left cerebral hemisphere, with mild interval progression of generalized cerebral parenchymal volume loss in comparison to December 2022. 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 Patchy hypoattenuation in the periventricular and deep white matter is nonspecific but compatible with chronic microvascular changes. There is no evidence of acute intraparenchymal hemorrhage or acute large territory infarct. No hydrocephalus. There is no mass effect or midline shift. Visualized paranasal sinuses show no air-fluid levels. Minimal mucosal thickening in the paranasal sinuses. Bilateral cataract surgery is noted. Vascular calcifications are seen along the intracranial carotid and vertebral arteries. IMPRESSION: Status post left-sided craniectomy/cranioplast y. Again present is a predominantly hypoattenuating extra-axial fluid collection deep to the cranioplasty, mildly increased in size since December 2022. There are some indistinctly marginated nodular isoattenuating to mildly hyperattenuating findings along the deep margin of this extra-axial collection that are new from December 2022. This is nonspecific and could represent scarring, blood, or recurrent neoplasm. An MRI brain with and without contrast would offer better characterization of this finding. No evidence of acute intraparenchymal hemorrhage, mass effect, or acute large territory infarct. Normal [facility] CT Head WO contraston 2024 IMPRESSION: Status post left-sided craniectomy/cranioplast y. Again present is a predominantly hypoattenuating extra-axial fluid collection deep to the cranioplasty, mildly increased in size since December 2022. There are some indistinctly marginated nodular isoattenuating to mildly hyperattenuating findings along the deep margin of this extra-axial collection that are new from December 2022. This is nonspecific and could represent scarring, blood, or recurrent neoplasm. An MRI brain with and without contrast would offer better characterization of this finding. No evidence of acute intraparenchymal hemorrhage, mass effect, or acute large territory infarct. OLOGY EXAM: CT HEAD WITHOU T CONTRAST, 11/07/2024 1:42 PM COMPARISON: CT HEAD (OUTSIDE IMAGE) December 24, 2022. CLINICAL INDICATIONS: Trauma Age: 78 years Gender: Female TECHNIQUE: A series of transaxial computed tomographic images were obtained from the base of the skull to the vertex without intravenous contrast. Axial whole-head and thin-section posterior fossa images were provided. Reformats: Sagittal and coronal. FINDINGS: Status post left-sided craniectomy/cranioplast y. Again present is a predominantly hypoattenuating extra-axial fluid collection deep to the cranioplasty, mildly increased in size since December 2022. There are some indistinctly marginated nodular isoattenuating to mildly hyperattenuating findings along the deep margin of this extra-axial collection that are new from December 2022. This is nonspecific and could represent scarring, blood, or recurrent neoplasm. An MRI brain with and without contrast would offer better characterization of this finding. Chronic encephalomalacic findings peripherally in the left cerebral hemisphere, with mild interval progression of generalized cerebral parenchymal volume loss in comparison to December 2022. 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 Patchy hypoattenuation in the periventricular and deep white matter is nonspecific but compatible with chronic microvascular changes. There is no evidence of acute intraparenchymal hemorrhage or acute large territory infarct. No hydrocephalus. There is no mass effect or midline shift. Visualized paranasal sinuses show no air-fluid levels. Minimal mucosal thickening in the paranasal sinuses. Bilateral cataract surgery is noted. Vascular calcifications are seen along the intracranial carotid and vertebral arteries. RADIOLOGY Zahida Zuniga MD - 11/07/2024 EXAM: CT HEAD WITHOUT CONTRAST, 11/07/2024 1:42 PM COMPARISON: CT HEAD (OUTSIDE IMAGE) December 24, 2022. CLINICAL INDICATIONS: Trauma Age: 78 years Gender: Female TECHNIQUE: A series of transaxial computed tomographic images were obtained from the base of the skull to the vertex without intravenous contrast. Axial whole-head and thin-section posterior fossa images were provided. Reformats: Sagittal and coronal. FINDINGS: Status post left-sided craniectomy/cranioplast y. Again present is a predominantly hypoattenuating extra-axial fluid collection deep to the cranioplasty, mildly increased in size since December 2022. There are some indistinctly marginated nodular isoattenuating to mildly hyperattenuating findings along the deep margin of this extra-axial collection that are new from December 2022. This is nonspecific and could represent scarring, blood, or recurrent neoplasm. An MRI brain with and without contrast would offer better characterization of this finding. Chronic encephalomalacic findings peripherally in the left cerebral hemisphere, with mild interval progression of generalized cerebral parenchymal volume loss in comparison to December 2022. 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 Patchy hypoattenuation in the periventricular and deep white matter is nonspecific but compatible with chronic microvascular changes. There is no evidence of acute intraparenchymal hemorrhage or acute large territory infarct. No hydrocephalus. There is no mass effect or midline shift. Visualized paranasal sinuses show no air-fluid levels. Minimal mucosal thickening in the paranasal sinuses. Bilateral cataract surgery is noted. Vascular calcifications are seen along the intracranial carotid and vertebral arteries. IMPRESSION IMPRESSION: Status post left-sided craniectomy/cranioplast y. Again present is a predominantly hypoattenuating extra-axial fluid collection deep to the cranioplasty, mildly increased in size since December 2022. There are some indistinctly marginated nodular isoattenuating to mildly hyperattenuating findings along the deep margin of this extra-axial collection that are new from December 2022. This is nonspecific and could represent scarring, blood, or recurrent neoplasm. An MRI brain with and without contrast would offer better characterization of this finding. No evidence of acute intraparenchymal hemorrhage, mass effect, or acute large territory infarct. [facility] Radiology Study observation (narrative) [facility] CT Head WO contrastOrdered B y: Zahida Yang on 11-07-2024 [facility] Work Phone: CT SPINE CERVICAL WITHOUT CO NTRASTon 11-07-2024 CT SPINE CERVICAL WITHOUT CONTRAST EXAM: CT SPINE CERVICAL WITHOUT CONTRAST, 11/07/2024 13:43 PM COMPARISON: No prior studies available for comparison. CLINICAL INDICATIONS: Trauma Age: 78 years Gender: Female TECHNIQUE: A series of transaxial multislice computed tomographic thin-section source images are obtained with helical technique from the clivus to the upper thoracic spine without intravenous contrast. Reformats: Axial, sagittal, and coronal. FINDINGS: Alignment is normal. Vertebral bodies are normal in height. No acute fracture. Prevertebral and other paraspinal soft tissues are within normal limits. Intervertebral discs are within normal limits in height for age. No high-grade canal or foraminal stenosis. Skull base and craniocervical junction are within normal limits. IMPRESSION: No acute fracture or traumatic malalignment. Normal [facility] Emergency Department Summary on 11-07-2024 Emergency Department Summary [facility] Medical Records Department [address] [place] [address] Emergency Department Summary 11/07/24 MR#: [id number] Acct: [id number] Name: SARAH MCGUIRE #: [id number] : 1945 78 From: [place] Anand MD PCP: Dr. Monika Venegas MD Status:DEP ER Location: ED HPI History of Present Illness Chief Complaint: Neuro S/Sx Detail of Chief Complaint: Daughter received a call that mother had slurred speech and had difficulty Informant: patient and family Onset/Context/Timing Onset: Today (1020) Context: Sudden Onset Timing: Continuous Quality and Location: Positive for Slurred Speech and Difficulty with Ambulation Onset: 1020 this is a Current Severity: Mild Maximum Severity: Mild Worsened by: Nothing Relieved by: Nothing Associated Symptoms Associated Symptoms: Negative for Headache, Nausea, Vomiting or Chest Pain Narrative Narrative: Patient is an 78-year-old woman. She was at [employer]. Other participants called daughter at 1021 because of trouble with speech and unable to walk. She has no complaints. She does admit she is having trouble walking. Patient is on amiodarone, she has history carotid bruit, mitral valve stenosis, high cholesterol, hypertension, prior stroke. Patient denies headache, visual, ocular auditory symptoms. Patient denies cardiovascular or respiratory symptoms. Patient has no GI symptoms. Prior similar symptoms: Yes Recent Illness/Hospitalization : No PFSH PFS Medical History Mitral valve stenosis, non-rheumatic Cerebrovascular [...] mg) 220 mg PO DAILY vitamin 12/06/22 0 12/24/22 10:00 History capsule (Orazinc) amiodarone [...] / Time No Known Allergies Allergy Verified 11/07/24 11:15 Family History Father CVA (cerebral vascular accident) Heart disease Mother Diabetes Surgical History H/O craniotomy Status post hemorrhoidectomy ( 08/19/20) S/P carpal tunnel release S/P bilateral breast reduction S/P hysterectomy Social History current occupational status: retired Smoking Status: Never smoker alcohol intake: never ROS ROS ED Constitutional Constitutional ED: Denies chills, fever(s) or subjective Eyes Eyes: Denies blurry vision or change in vision ENT ENT ED: Denies ear pain or rhinorrhea Cardiovascular Cardiovascular: Denies chest pain or palpitations Respiratory/Chest Respiratory/Chest: Denies cough, dyspnea or dyspnea on exertion Gastrointestinal Gastrointestinal: Denies abdominal pain, nausea or vomiting Genitourinary Genitourinary ED: Denies dysuria, hematuria or urinary frequency Musculoskeletal Musculoskeletal: Denies arthralgias, back pain or neck pain Neurologic Neurologic: Reports other Details: Difficulty ambulating and slurred speech ; Denies headache(s), paresthesias or weakness Psychiatric Psychiatric: Denies anxiety or depression Hematologic/Lymphatic Hematologic/Lymphatic: Denies easy bleeding or easy bruising EXAM Physical Exam Const Vital Signs: 11/07/24 10:51 11/07/24 10:52 11/07/24 10:53 Temperature 98.7 F Temperature Source Temporal Pulse Rate 47 L 46 L Respiratory Rate 20 H 19 H Blood Pressure 218/43 H 161/37 H Blood Pressure Mean 101 78 Pulse Ox 100 98 Oxygen Delivery Method Room Air Room Air (more content not included)... Normal [facility] HIGH SENSITIVITY TROPONIN I - SINGLE ORDERon 11-07-2024 Interpretation and review of laboratory results Normal [facility] Troponin I.cardiac High sensitivity method [Mass/Vol] 9 ng/L NINF - 34 ng/L [facility] hs-Troponin I 9 ng/L Normal <34 [facility] Comment on above: Order Comment: Acute Coronary Syndrome (ACS): Initial Evaluation and Management:[email or web address] Performed By: #### M GO, IPB, CHM7, HFP #### [facility] (DEFAULT) [address] [address] L499.0042on 11-07-2024 Trop T High Sen Normal <=14 [facility] Comment on above: Result Comment: Canc elled via OM: Order cancelled - Patient discharged Performed By: #### L 499.0042 #### [facility] [address] [place], [address] L499.0043on 11-07-2024 Trop T High Sen Normal <=14 [facility] Comment on above: Result Comment: Canc elled via OM: Order cancelled - Patient discharged Performed By: #### L 499.0043 #### [facility] [address] [place], [place], [address] L501.4021on 11-07-2024 Trop T High Sen 21 ng/L High <=14 [facility] Comment on above: Performed By: #### L 501.9520, L506.0400, L501.41004 #### [facility] [address] [place], [address] No Panel Informationon 11-07 [facility] PROTIME-INRon 11-07-2024 INR Coag (Bld) [Relative time] 1.3 {INR} High 0.9 - 1.1 [facility] Interpretation and review of laboratory results Abnormal [facility] PT Coag (PPP) [Time] 15.8 s High [facility] INR Coag (PPP) [Relative time] 1.3 {INR} High 0.9-1.1 [facility] Comment on above: Performed By: #### GA FUNES, CHM7, HFP #### [facility] (DEFAULT) [address] [place] [id number] PT Coag (PPP) [Time] 15.8 s High 11.9-14.2 [facility] Comment on above: Performed By: #### GA FUNES, CHM7, HFP #### [facility] (DEFAULT) [address] [place] [address] Partial Thromboplast Timeon 11-07-2024 aPTT Coag (Bld) [Time] 33.0 s Normal 24.1-36.2 [facility] Comment on above: Performed By: #### L 501.9520, L506.0400, L501.71466 #### [facility] [address] [place], [address] Portable XR Chest Viewson IMPRESSION: No displaced fracture. Diffuse centrally predominant bronchial wall thickening and interstitial changes can be seen with inflammatory airways disease or early developing edema. Clinically correlate. OLOGY EXAM: XR CHEST 1 VIE W PORTABLE, 11/07/2024 13:23 PM COMPARISON: December 02, 2022 CLINICAL INDICATIONS: Trauma RELEVANT CLINICAL HISTORY: FINDINGS: (Adequate technique) Thickening along the right paravertebral region was not well seen on the immediate prior, however is similar to more remote exams from October 2022 and correlates with fat on the interval PET/CT from March 2024. Bronchial cuffing and diffuse mild interstitial changes. Stable cardiac megaly. Aortic atherosclerosis. No displaced fracture. Degenerative changes in the spine. RADIOLOGY Adele Luna M D - 11/07/2024 EXAM: XR CHEST 1 VIEW PORTABLE, 11/07/2024 13:23 PM COMPARISON: December 02, 2022 CLINICAL INDICATIONS: Trauma RELEVANT CLINICAL HISTORY: FINDINGS: (Adequate technique) Thickening along the right paravertebral region was not well seen on the immediate prior, however is similar to more remote exams from October 2022 and correlates with fat on the interval PET/CT from March 2024. Bronchial cuffing and diffuse mild interstitial changes. Stable cardiac megaly. Aortic atherosclerosis. No displaced fracture. Degenerative changes in the spine. IMPRESSION IMPRESSION: No displaced fracture. Diffuse centrally predominant bronchial wall thickening and interstitial changes can be seen with inflammatory airways disease or early developing edema. Clinically correlate. [facility] Radiology Study observation (narrative) [facility] Portable XR Chest ViewsOrder ed By: Adele Luna on 11-07-2024 [facility] Work Phone: Prothrombin Time w/INRon INR Coag (PPP) [Relative time] 1.4 {INR} Normal [facility] Comment on above: Performed By: #### L [id number], L506.0400, [id number] #### [facility] [address] [place], [place], [id number] PT Coag (PPP) [Time] 17.1 s High 11.7-14.9 [facility] Comment on above: Performed By: #### L [id number], L506.0400, [id number] #### [facility] [address] [place], [address] STROKE Brain/Head without Co nton 11-07-2024 STROKE Brain/Head without Cont [facility] Imaging Services [address] [place] [address] STROKE Brain/Head without Cont MR#: [id number] Acct: [id number] Name: SARAH MCGUIRE Rep #: [id number] : 1945 F 78 From: Darnell Rivera PCP: Dr. Monika Venegas MD Status: REG ER Study: STROKE Brain/Head without Cont Date of Exam: 0 11/07/24 Exam# [id number] Ordering Dr: [place] Anand MD PROCEDURE: STROKE BRAIN/HEAD WITHOUT CONT 11/07/2024 REASON FOR EXAM: NEURO DEFICIT, ACUTE, STROKE SUSPECTED TECHNIQUE: Head CT without intravenous contrast. Coronal and Sagittal reconstruction series were provided. One or more dose reduction techniques were used (e.g., Automated exposure control, adjustment of the mA and/or kV according to patient size, use of iterative reconstruction technique. RADIATION DOSE SUMMARY: CTDlvol: 44.99 mGy DLP: 762.36 mGycm COMPARISON: Head CT of 12/24/2022. FINDINGS: A left craniotomy site is seen. Beneath the craniotomy site is noted mixed density moderate-sized subdural fluid collection. No significant midline shift is seen. Beneath the subdural fluid collection is seen areas of left frontal white matter hypodensities (axial images 19 through 30). These are concerning for the presence of possible white matter infarction, of uncertain age. Ventricles appear symmetric and within the normal range. No parenchymal hemorrhage is seen. No intraventricular blood is noted. Sinuses/Mastoids: Clear at visualized levels Bones: No acute osseous change is seen. CT/STROKE Brain/Head without Cont IMPRESSION: 1. Moderate-sized mixed density left subdural fluid collection, concerning for recurrent bleed. No midline shift is noted. 2. Hypodensities in nearby areas left frontal white matter, concerning for possible areas infarction, of uncertain age. Reading Location: [id number] CC: Dr. Monika Venegas MD; Dr. [place] Anand MD [employer]borne [employer] Air Delivery Specialist: Signed Normal [facility] TSHon 11-07-2024 Interpretation and review of laboratory results Normal [facility] TSH Qn 1.934 m[IU]/L [facility] TSH 1.934 uIU/mL Normal 0.550-4.780 [facility] Comment on above: Performed By: #### GA FUNES, CHM7, HFP #### [facility] (DEFAULT) [address] [place] [address] TYPE AND SCREENon 11-07-2024 ABO/RH(D) TYPE AB NEG [facility] Specimen Expiration 11/10/2024 23:59 [facility] ABO/RH(D) TYPE AB NEG Normal [facility] Comment on above: Performed By: #### GA FUNES, CHM7, HFP #### [facility] (DEFAULT) [address] [place] [address] Specimen Expiration 11/10/2024 23:59 Normal [facility] Comment on above: Performed By: #### GA FUNES, CHM7, HFP #### [facility] (DEFAULT) [address] [place] [address] URINALYSIS REFLEX TO CULTURE PERFORMABLEOrdered By: Annika Pitts on 11-07-2024 Appearance (U) Clear Clear [facility] Bacteria LM Ql (Urine sed) PRESENT Abnormal ABSENT [facility] Color (U) Yellow Yellow [facility] Epithelial cells.squamous LM Ql (Urine sed) 0-2/hpf 0-2/hpf, 3-5/hpf = 1+ [facility] Glucose Test strip (U) [Mass/Vol] Negative Negative [facility] Interpretation and review of laboratory results Abnormal [facility] Ketones (U) [Mass/Vol] Negative Negative [facility] Leukocyte esterase Test strip Ql (U) Moderate Abnormal Negative [facility] Nitrite Ql (U) Positive Abnormal Negative [facility] pH (U) 7.0 [pH] 5.0 - 7.0 [facility] Protein (U) [Mass/Vol] Negative Negative [facility] RBC (U) [#/Vol] Negative Negative [facility] RBC LM.HPF (Urine sed) [#/Area] 0-2 [facility] Specific gravity (U) [Rel density] 1.014 1.001 - 1.035 [facility] Urobilinogen (U) [Mass/Vol] 1.0 E.U./dL 0.2 E.U/dL, 1.0 E.U/dL [facility] WBC LM.HPF (Urine sed) [#/Area] 6 - 10 Abnormal [facility] URINALYSIS REFLEX TO CULTURE PERFORMABLEon 11-07-2024 Appearance (U) Clear Normal Clear [facility] Comment on above: Order Comment: For i ndwelling catheters, specimen collection is acceptable on catheter day 1 and 2 only. ? Performed By: #### U [id number] #### [facility] (DEFAULT) [address] [address] Bacteria PRESENT Abnormal ABSENT [facility] Comment on above: Order Comment: For i ndwelling catheters, specimen collection is acceptable on catheter day 1 and 2 only. ? Performed By: #### U [id number] #### [facility] (DEFAULT) [address] [address] Blood Urine Negative Normal Negative [facility] Comment on above: Order Comment: For i ndwelling catheters, specimen collection is acceptable on catheter day 1 and 2 only. ? Performed By: #### U [id number] #### [facility] (DEFAULT) [address] [address] Color (U) Yellow Normal Yellow [facility] Comment on above: Order Comment: For i ndwelling catheters, specimen collection is acceptable on catheter day 1 and 2 only. ? Performed By: #### U [id number] #### [facility] (DEFAULT) [address] [place] [address] Glucose Ql (U) Negative Normal Negative [facility] Comment on above: Order Comment: For i ndwelling catheters, specimen collection is acceptable on catheter day 1 and 2 only. ? Performed By: #### U [id number] #### [facility] (DEFAULT) [address] [place] [address] Ketones Ql (U) Negative Normal Negative [facility] Comment on above: Order Comment: For i ndwelling catheters, specimen collection is acceptable on catheter day 1 and 2 only. ? Performed By: #### U [id number] #### [facility] (DEFAULT) [address] [place] [address] Leukocyte esterase Test strip Ql (U) Moderate Abnormal Negative [facility] Comment on above: Order Comment: For i ndwelling catheters, specimen collection is acceptable on catheter day 1 and 2 only. ? Performed By: #### U [id number] #### [facility] (DEFAULT) [address] [place] [address] Nitrites Urine Positive Abnormal Negative [facility] Comment on above: Order Comment: For i ndwelling catheters, specimen collection is acceptable on catheter day 1 and 2 only. ? Performed By: #### U [id number] #### [facility] (DEFAULT) [address] [place] [address] pH (U) 7.0 [pH] Normal 5.0-7.0 [facility] Comment on above: Order Comment: For i ndwelling catheters, specimen collection is acceptable on catheter day 1 and 2 only. ? Performed By: #### U [id number] #### [facility] (DEFAULT) [address] [place] [address] Protein Urine Negative Normal Negative [facility] Comment on above: Order Comment: For i ndwelling catheters, specimen collection is acceptable on catheter day 1 and 2 only. ? Performed By: #### U [id number] #### [facility] (DEFAULT) [address] [place] [address] RBC Urine 0-2 Normal 0-2 [facility] Comment on above: Order Comment: For i ndwelling catheters, specimen collection is acceptable on catheter day 1 and 2 only. ? Performed By: #### U [id number] #### [facility] (DEFAULT) [address] [address] Specific [place] Urine 1.014 Normal 1.001-1.035 [facility] Comment on above: Order Comment: For i ndwelling catheters, specimen collection is acceptable on catheter day 1 and 2 only. ? Performed By: #### U [id number] #### [facility] (DEFAULT) [address] [address] Squamous/Epithelial Cells, Urine 0-2/hpf Normal 0-2/hpf, 3-5/hpf = 1+ [facility] Comment on above: Order Comment: For i ndwelling catheters, specimen collection is acceptable on catheter day 1 and 2 only. ? Performed By: #### U [id number] #### [facility] (DEFAULT) [address] [address] Urobilinogen Urine 1.0 E.U./dL Normal 0.2 E.U/d L, 1.0 E.U/dL [facility] Comment on above: Order Comment: For i ndwelling catheters, specimen collection is acceptable on catheter day 1 and 2 only. ? Performed By: #### U [id number] #### [facility] (DEFAULT) [address] [address] WBC Urine 6 - 10 Abnormal 0 - 5 [facility] Comment on above: Order Comment: For i ndwelling catheters, specimen collection is acceptable on catheter day 1 and 2 only. ? Performed By: #### U [id number] #### [facility] (DEFAULT) [address] [address] URINE DRUG SCREEN 11-07 Amphetamine+Methampheta mine Screen (U) [Mass/Vol] Not detected Cutoff: 500 ng/mL [facility] Barbiturates Ql (U) Not detected Cutoff: 200 ng/mL [facility] Benzodiazepines Ql (U) Not detected Cutof f: 200 ng/mL [facility] Buprenorphine Ql (U) Not detected Cutoff: 5 ng/mL [facility] Cannabinoids Screen Ql (U) Not detected Cutoff: 50 ng/mL [facility] Cocaine Ql (U) Not detected Cutoff: 150 ng/mL [facility] fentaNYL Ql (U) Not detected Cutoff: 1 ng/mL [facility] Interpretation and review of laboratory results Normal [facility] Methadone Ql (U) Not detected Cutoff: 300 ng/mL [facility] Opiates Ql (U) Not detected Cutoff: 300 ng/mL [facility] oxyCODONE Ql (U) Not detected Cutoff: 100 ng/mL [facility] For medical purposes only. Positive results are unconfirmed unless otherwise noted. [facility] Amphetamine/Methampheta mine Not detected Normal Cutoff: 500 ng/mL [facility] Comment on above: Order Comment: For edical purposes only. Positive results are unconfirmed unless otherwise noted. Performed By: #### Harini ALBERTO IPB, CHM7, HFP #### [facility] (DEFAULT) [address] [address] Barbiturates Not detected Normal Cutoff: 200 ng/mL [facility] Comment on above: Order Comment: For m edical purposes only. Positive results are unconfirmed unless otherwise noted. Performed By: #### Harini ALBERTO IPB, CHM7, HFP #### [facility] (DEFAULT) [address] [place] [address] Benzodiazepines Not detected Normal Cutoff: 200 ng/mL [facility] Comment on above: Order Comment: For m edical purposes only. Positive results are unconfirmed unless otherwise noted. Performed By: #### Harini ALBERTO, IPB, CHM7, HFP #### [facility] (DEFAULT) [address] [address] Buprenorphine Not detected Normal Cutoff: 5 ng/mL [facility] Comment on above: Order Comment: For m edical purposes only. Positive results are unconfirmed unless otherwise noted. Performed By: #### M GO, IPB, CHM7, HFP #### [facility] (DEFAULT) [address] [place] [address] Cannabinoids Screen Ql (U) Not detected Normal Cutoff: 50 ng/mL [facility] Comment on above: Order Comment: For m edical purposes only. Positive results are unconfirmed unless otherwise noted. Performed By: #### M GO, IPB, CHM7, HFP #### [facility] (DEFAULT) [address] [address] Cocaine Not detected Normal Cutoff: 150 ng/mL [facility] Comment on above: Order Comment: For m edical purposes only. Positive results are unconfirmed unless otherwise noted. Performed By: #### M GO, IPB, CHM7, HFP #### [facility] (DEFAULT) [address] [address] Fentanyl Not detected Normal Cutoff: 1 ng/mL [facility] Comment on above: Order Comment: For edical purposes only. Positive results are unconfirmed unless otherwise noted. Performed By: #### M GO, IPB, CHM7, HFP #### [facility] (DEFAULT) [address] [address] Methadone Not detected Normal Cutoff: 300 ng/mL [facility] Comment on above: Order Comment: For m edical purposes only. Positive results are unconfirmed unless otherwise noted. Performed By: #### M GO, IPB, CHM7, HFP #### [facility] (DEFAULT) [address] [address] Opiates Not detected Normal Cutoff: 300 ng/mL [facility] Comment on above: Order Comment: For m edical purposes only. Positive results are unconfirmed unless otherwise noted. Performed By: #### M GO, IPB, CHM7, HFP #### [facility] (DEFAULT) [address] [address] Oxycodone Not detected Normal Cutoff: 100 ng/mL [facility] Comment on above: Order Comment: For m edical purposes only. Positive results are unconfirmed unless otherwise noted. Performed By: #### M GO, IPB, CHM7, HFP #### [facility] (DEFAULT) [address] [place] [address] VENOUS BLOOD GAS (FULL PANEL )on 11-07-2024 Base excess Calc (Bld) [Moles/Vol] -1.9000 mmol/L -3.0 - 3.0 mmol/L [facility] Calcium.ionized (Bld) [Mass/Vol] 4.45 mg/dL Low 4.60 - 5.30 mg/dL [facility] Carboxyhemoglobin (Bld) [Mass fraction] 1.6 % High NINF - 1.5 % [facility] CO2 (Bld) [Partial pressure] 29 mm[Hg] Low [facility] Glucose [Mass/Vol] 102 mg/dL 70 - 179 mg/dL [facility] HCO3 (Bld) [Moles/Vol] 22 mmol/L 22 - 29 mmol/L [facility] Hematocrit (Bld) [Volume fraction] 33 % Low 34 - 46 % [facility] Hemoglobin (Bld) [Mass/Vol] 11.1 g/dL Low 11.4 - 15.2 g/dL [facility] Interpretation and review of laboratory results Abnormal [facility] Lactate [Moles/Vol] 0.7 mmol/L 0.5 - 1. 6 mmol/L [facility] Methemoglobin (Bld) [Mass fraction] 1.1 % NINF - 1.5 % [facility] Oxygen (Bld) [Partial pressure] 106 mm[Hg] mm Hg [facility] Comment on above: Venous pO2 is not re commended for the evaluation of oxygen status, clinical correlation is recommended. Oxygen saturation in Blood 99 % High 70 - 80 % [facility] Oxyhemoglobin 96 % 94 - 98 % [facility] pH (Bld) 7.48 [pH] High 7.32 - 7.43 [facility] Potassium [Moles/Vol] 4.3 mmol/L 3.5 - 5.0 mmol/L [facility] Sodium [Moles/Vol] 128 mmol/L Low 135 - 145 mmol/L [facility] Specimen source Nom (Unsp spec) Venous [facility] Base Excess -1.9 mmol/L Normal -3.0-3.0 [facility] Comment on above: Performed By: #### G SVALL #### [facility] (DEFAULT) [address] [place] [address] Carboxyhemoglobin 1.6 % High <=1.5 [facility] Comment on above: Performed By: #### G SVALL #### [facility] (DEFAULT) [address] [place] [address] Glucose [Mass/Vol] 102 mg/dL Normal Nonfastin g Glucose: 70-179 [facility] Comment on above: Performed By: #### G SVALL #### [facility] (DEFAULT) [address] [place] [address] HCO3 (Bld) [Moles/Vol] 22 mmol/L Normal 22-29 [facility] Comment on above: Performed By: #### G SVALL #### [facility] (DEFAULT) [address] [place] [address] Hematocrit (Bld) [Volume fraction] 33 % Low 34-46 [facility] Comment on above: Performed By: #### G SVALL #### [facility] (DEFAULT) [address] [place] [address] Hemoglobin (Bld) [Mass/Vol] 11.1 g/dL Low 11.4-15.2 [facility] Comment on above: Performed By: #### G SVALL #### [facility] (DEFAULT) [address] [place] [address] Ionized Calcium, Whole Blood 4.45 mg/dL Low 4.60-5.30 [facility] Comment on above: Performed By: #### G SVALL #### [facility] (DEFAULT) [address] [place] [address] Lactate, Whole Blood 0.7 mmol/L Normal 0.5-1.6 [facility] Comment on above: Performed By: #### G SVALL #### [facility] (DEFAULT) [address] [place] [address] Methemoglobin 1.1 % Normal <=1.5 [facility] Comment on above: Performed By: #### G SVALL #### [facility] (DEFAULT) [address] [place] [address] Oxygen saturation in Blood 99 % High 70-80 [facility] Comment on above: Performed By: #### G SVALL #### [facility] (DEFAULT) [address] [place] [address] Oxyhemoglobin 96 % Normal 94-98 [facility] Comment on above: Performed By: #### G SVALL #### [facility] (DEFAULT) [address] [place] [address] pCO2, Venous 29 mm Hg Low 36-52 [facility] Comment on above: Performed By: #### G SVALL #### [facility] (DEFAULT) [address] [place] [address] pH, Venous 7.48 High 7.32-7.43 [facility] Comment on above: Performed By: #### G SVALL #### [facility] (DEFAULT) [address] [place] [address] pO2, Venous 106 mm Hg Normal [facility] Comment on above: Result Comment: Veno us pO2 is not recommended for the evaluation of oxygen status, clinical correlation is recommended. Performed By: #### G SVALL #### [facility] (DEFAULT) [address] [place] [address] Potassium [Moles/Vol] 4.3 mmol/L Normal 3.5-5.0 [facility] Comment on above: Performed By: #### G SVALL #### [facility] (DEFAULT) [address] [place] [address] Sodium [Moles/Vol] 128 mmol/L Low 135-145 [facility] Comment on above: Performed By: #### G SVALL #### [facility] (DEFAULT) [address] [place] [address] Specimen type Nom (Spec) Venous Normal [facility] Comment on above: Performed By: #### G SVALL #### [facility] (DEFAULT) [address] [place] [address] XR CHEST 1 VIEW PORTABLEon 0 11-07-2024 XR CHEST 1 VIEW PORTABLE EXAM: XR CHEST 1 VIEW PORTABLE, 11/07/2024 13:23 PM COMPARISON: December 02, 2022 CLINICAL INDICATIONS: Trauma RELEVANT CLINICAL HISTORY: FINDINGS: (Adequate technique) Thickening along the right paravertebral region was not well seen on the immediate prior, however is similar to more remote exams from October 2022 and correlates with fat on the interval PET/CT from March 2024. Bronchial cuffing and diffuse mild interstitial changes. Stable cardiac megaly. Aortic atherosclerosis. No displaced fracture. Degenerative changes in the spine. IMPRESSION: No displaced fracture. Diffuse centrally predominant bronchial wall thickening and interstitial changes can be seen with inflammatory airways disease or early developing edema. Clinically correlate. Normal [facility] XR PELVIS 1-2 VIEWSon 2024 XR PELVIS 1-2 VIEWS EXAM: XR PELVIS 1-2 VIEWS, 11/07/2024 13:23 PM COMPARISON: CT pelvis dated November 26, 2022 CLINICAL INDICATIONS: , Trauma RELEVANT CLINICAL HISTORY: FINDINGS: 1 images obtained. Bone: There is diffuse demineralization. Bony pelvis appears grossly intact. Mild widening of the pubic symphysis is unchanged. SI Joint: The sacroiliac joints are anatomically aligned. Hip: The hip joints are anatomically aligned. IMPRESSION: Osteopenia. Chronic appearing mild widening of the pubic symphysis. No displaced fracture evident. Normal [facility] XR Pelvis 2 Viewson 11-08-19 IMPRESSION: Osteopenia. Chronic appearing mild widening of the pubic symphysis. No displaced fracture evident. OLOGY EXAM: XR PELVIS 1-2 VIEWS, 11/07/2024 13:23 PM COMPARISON: CT pelvis dated November 26, 2022 CLINICAL INDICATIONS: , Trauma RELEVANT CLINICAL HISTORY: FINDINGS: 1 images obtained. Bone: There is diffuse demineralization. Bony pelvis appears grossly intact. Mild widening of the pubic symphysis is unchanged. SI Joint: The sacroiliac joints are anatomically aligned. Hip: The hip joints are anatomically aligned. RADIOLOGY Damien Beasley DO - 11/07/2024 EXAM: XR PELVIS 1-2 VIEWS, 11/07/2024 13:23 PM COMPARISON: CT pelvis dated November 26, 2022 CLINICAL INDICATIONS: , Trauma RELEVANT CLINICAL HISTORY: FINDINGS: 1 images obtained. Bone: There is diffuse demineralization. Bony pelvis appears grossly intact. Mild widening of the pubic symphysis is unchanged. SI Joint: The sacroiliac joints are anatomically aligned. Hip: The hip joints are anatomically aligned. IMPRESSION IMPRESSION: Osteopenia. Chronic appearing mild widening of the pubic symphysis. No displaced fracture evident. [facility] Radiology Study observation (narrative) [facility] XR Pelvis 2 ViewsOrdered By: Damien Beasley on 11-07-2024 [facility] Work Phone: Absolute neutrophil countOrd ered By: Hayden Sadler on 09-27-2024 Neutrophils (Bld) [#/Vol] 5.1 10*3/uL 2.0-7.7 [facility] Anion gap in Serum or Plasma Ordered By: Hayden Sadler on 09-27-2024 Anion gap [Moles/Vol] 10 mmol/L 5-15 [facility] BUN/creatinine ratioOrdered By: Hayden Sadler on 09-27-2024 Urea nitrogen/Creatinine [Mass ratio] 23.3 mg/mg High - [facility] Basic Metabolic Profile (BMP )on 09-27-2024 BUN/CRE 23.3 RATIO High - [facility] Comment on above: Performed By: #### L 501.9520, L506.0400, [id number] #### [facility] [address] [place], [address] Calcium [Mass/Vol] 9.3 mg/dL Normal 7.6-11.0 [facility] Comment on above: Performed By: #### L 501.9520, L506.0400, L501.99924 #### [facility] [address] [place], [address] Chloride [Moles/Vol] 95 mmol/L Low 98-108 [facility] Comment on above: Performed By: #### L 501.9520, L506.0400, L501.03372 #### [facility] [address] [place], [address] CO2 [Moles/Vol] 22.8 mmol/L Normal 21.0-32.0 [facility] Comment on above: Performed By: #### L 501.9520, L506.0400, L501.87543 #### [facility] [address] [place], [address] Creatinine [Mass/Vol] 0.97 mg/dL Normal 0.70-1.20 [facility] Comment on above: Performed By: #### L 501.9520, L506.0400, L501.41519 #### [facility] [address] [place], [address] ECRCL 33.23 ml/min Low 50-250 [facility] Comment on above: Performed By: #### L 501.9520, L506.0400, L501.62249 #### [facility] [address] [place], [address] GAP 10 Normal 5-15 [facility] Comment on above: Performed By: #### L 501.9520, L506.0400, L501.63813 #### [facility] [address] [place], [address] GFR/1.73 sq M.predicted among non-blacks MDRD (S/P/Bld) [Vol rate/Area] 59 mL/min/{1.73_m2} Low >60 [facility] Comment on above: Result Comment: mL/m in/1.73m2 CKD-EPI Creatinine Equation (2020) Performed By: #### L 501.9520, L506.0400, L501.67270 #### [facility] [address] [place], [address] Glucose [Mass/Vol] 160 mg/dL High 70-99 [facility] Comment on above: Performed By: #### L 501.9520, L506.0400, L501.67052 #### [facility] [address] [place], [address] Potassium [Moles/Vol] 4.6 mmol/L Normal 3.3-5.1 [facility] Comment on above: Performed By: #### L 501.9520, L506.0400, L501.91303 #### [facility] [address] [place], [address] Sodium [Moles/Vol] 128 mmol/L Low 133-145 [facility] Comment on above: Performed By: #### L 501.9520, L506.0400, L501.89416 #### [facility] [address] [place], [address] Urea nitrogen [Mass/Vol] 23 mg/dL High 4-19 [facility] Comment on above: Performed By: #### L 501.9520, L506.0400, L501.31820 #### [facility] [address] [place], [address] Basophil percentageOrdered B y: Hayden Sadler on 09-27-2024 Basophils/100 WBC (Bld) 0.3 % 0-1 [facility] CBC W/Diff, Automatedon 09-05 Absolute Lymph 0.70 X10 3/uL Low 0.83-4.51 [facility] Comment on above: Performed By: #### L 501.9520, L506.0400, L501.06786 #### [facility] [address] [place], [address] Absolute Neut 5.1 X10 3/uL Normal 2.0-7.7 [facility] Comment on above: Performed By: #### L 501.9520, L506.0400, L501.42950 #### [facility] [address] [place], [address] Basophils/100 WBC (Bld) 0.3 % Normal 0-1 [facility] Comment on above: Performed By: #### L 501.9520, L506.0400, L501.68447 #### [facility] [address] [place], [address] Eosinophils/100 WBC (Bld) 1.1 % Normal 0-5 [facility] Comment on above: Performed By: #### L 501.9520, L506.0400, L501.11015 #### [facility] [address] [place], [address] Erythrocyte distribution width (RBC) [Ratio] 13.8 % Normal 11.6-14.6 [facility] Comment on above: Performed By: #### L 501.9520, L506.0400, L501.50441 #### [facility] [address] [place], [address] Hematocrit (Bld) [Volume fraction] 31.3 % Low 37-47 [facility] Comment on above: Performed By: #### L 501.9520, L506.0400, L501.25102 #### [facility] [address] [place], [address] Hemoglobin (Bld) [Mass/Vol] 11.0 g/dL Low 12.0-15.0 [facility] Comment on above: Performed By: #### L 501.9520, L506.0400, L501.76093 #### [facility] [address] [place], [address] IG% 0.800 Normal 0.0-0.9 [facility] Comment on above: Result Comment: IG% - Immature Granulocytes (promyelocytes, myelocytes and metamyelocytes) > 1% indicates that a LEFT SHIFT is Present. Performed By: #### L 501.9520, L506.0400, L501.93059 #### [facility] [address] [place], [address] Lymphocytes/100 WBC (Bld) 10.8 % Low 19-41 [facility] Comment on above: Performed By: #### L 501.9520, L506.0400, L501.30601 #### [facility] [address] [place], [address] MCH (RBC) [Entitic mass] 32.4 pg High 27.0-32.0 [facility] Comment on above: Performed By: #### L 501.9520, L506.0400, L501.93825 #### [facility] [address] [place], [address] MCHC (RBC) [Mass/Vol] 35.1 g/dL Normal 32-36 [facility] Comment on above: Performed By: #### L 501.9520, L506.0400, L501.65246 #### [facility] [address] [place], [address] MCV (RBC) [Entitic vol] 92.3 fL Normal 81-99 [facility] Comment on above: Performed By: #### L 501.9520, L506.0400, L501.44977 #### [facility] [address] [place], [address] Monocytes/100 WBC (Bld) 8.3 % Normal 0-[address] [facility] Comment on above: Performed By: #### L 501.9520, L506.0400, L501.75442 #### [facility] [address] [place], [address] Neutrophils/100 WBC (Bld) 78.7 % High 47-70 [facility] Comment on above: Performed By: #### L 501.9520, L506.0400, L501.60255 #### [facility] [address] [place], [address] Nucleated RBC (Bld) [#/Vol] 0 10*3/uL Normal 0-5 [facility] Comment on above: Performed By: #### L 501.20, L506.0400, L501.41675 #### [facility] [address] [place], [address] Platelet mean volume (Bld) [Entitic vol] 9.9 fL Normal 6.2-12.0 [facility] Comment on above: Performed By: #### L 501.9520, L506.0400, L501.38996 #### [facility] [address] [place], [address] Platelets (Bld) [#/Vol] 219 10*3/uL Normal 150-450 [facility] Comment on above: Performed By: #### L 501.9520, L506.0400, L501.88017 #### [facility] [address] [place], [address] RBC (Bld) [#/Vol] 3.39 10*6/uL Low 4.2-5.4 [facility] Comment on above: Performed By: #### L 501.9520, L506.0400, L501.78977 #### [facility] [address] [place], [address] RDW SD 46.5 fl High 35.1-43.9 [facility] Comment on above: Performed By: #### L 501.9520, L506.0400, L501.29405 #### [facility] [address] [place], [address] WBC (Bld) [#/Vol] 6.5 10*3/uL Normal 4.4-11.0 [facility] Comment on above: Performed By: #### L 501.9520, L506.0400, L501.92101 #### [facility] [address] [place], [address] Carbon dioxide, total [Moles /volume] in Central venous bloodOrdered By: Hayden Sadler on 09-27-2024 CO2 [Moles/Vol] 22.8 mmol/L 21.0-32.0 [facility] Chest PA and Lateralon 09-27 Chest PA and Lateral [facility] Imaging Services [address] [place] [address] Chest PA and Lateral MR#: [id number] Acct: [id number] Name: SARAH MCGUIRE Rep #: [id number] : 1945 F 78 From: Eugenio gomez MD PCP: Dr. Monika Venegas MD Status: [facility] ER Study: Chest PA and Lateral Date of Exam: 09/27/24 Exam# [id number] Ordering Dr: Hayden Sadler DO PROCEDURE: CHEST [...] No acute abnormality is seen. Reading Location: [facility] CC: Dr. Monika Venegas MD; Dr. Hayden Sadler DO [employer] Specialist: Signed Normal [facility] Chloride assayOrdered By: Delfin Sadler on 09-27-2024 Chloride [Moles/Vol] 95 mmol/L Low 98-108 [facility] Emergency Department Summary on 09-27-2024 Emergency Department Summary [facility] Medical Records Department [address] [place] [id number] Emergency Department Summary 09/27/24 MR#: [id number] Acct: [id number] Name: SARAH MCGUIRE Rep #: [id number] : 1945 78 From: Hayden Sadler DO [...] her surgery and from the ride from [facility] to [place] and December 2022 she noted that she has had some numbness and tingling periodically in her left arm but today this felt different therefore her daughter brought her here for further evaluation management. She states that she was sitting eating breakfast when this occurred. Patient states that she is anxious about her symptoms. She states that she is on Eliquis. [facility] Medical History Mitral valve stenosis, non-rheumatic [...] mg) 220 mg PO DAILY vitamin 12/06/22 0 12/24/22 10:00 History capsule (Orazinc) amiodarone [...] follow commands knew that she was at [facility] year is 2024 Skin: Warm, dry, intact Const Vital Signs: 09/27/24 09:20 09/27/24 09:23 09/27/24 09:31 Temperature 98 F (more content not included)... Normal [facility] Eosinophil percentageOrdered By: Hayden Sadler on 09-27-2024 Eosinophils/100 WBC (Bld) 1.1 % 0-5 [facility] Erythrocyte distribution wid th (RBC) [Ratio]Ordered By: Hayden Sadler on 09-27-2024 Erythrocyte distribution width (RBC) [Entitic vol] 46.5 fL High 35.1-43.9 [facility] Erythrocyte distribution wid th ratioOrdered By: Hayden Sadler on 09-27-2024 Erythrocyte distribution width (RBC) [Ratio] 13.8 % 11.6-14.6 [facility] Estimation of creatinine guido aranceOrdered By: Hayden Sadler on 09-27-2024 Estimated Creatinine Clearance Calc 33.23 ml/min Low 50-250 [facility] GFR/1.73 sq M.predicted maicol g non-blacks MDRD (S/P/Bld) [Vol rate/Area]Ordered By: Hayden Sadler on 09-27-2024 Estimated GFR (MDRD) Non-Af Amer 59 Low >60 [facility] Comment on above: mL/min/1.73m2 CKD-EP I Creatinine Equation (2020) Hematocrit Auto (Bld) [Volum e fraction]Ordered By: Hayden Sadler on 09-27-2024 Hematocrit (Bld) [Volume fraction] 31.3 % Low 37-47 [facility] Hemoglobin measurementOrdere d By: Hayden Sadler on 09-27-2024 Hemoglobin (Bld) [Mass/Vol] 11.0 g/dL Low 12.0-15.0 [facility] Immature granulocytes/100 WB C Auto (Bld)Ordered By: Hayden Sadler on 09-27-2024 Immature granulocytes/100 WBC (Bld) 0.800 % 0.0-0.9 [facility] Comment on above: IG% - Immature Granu locytes (promyelocytes, myelocytes and metamyelocytes) > 1% indicates that a LEFT SHIFT is Present. International normalized rat io (INR) calculationOrdered By: Hayden Sadler on 09-27-2024 INR Coag (Bld) [Relative time] 1.1 {INR} [facility] L499.0042on 09-27-2024 Trop T High Sen 14 ng/L Normal <=14 [facility] Comment on above: Performed By: #### L 300.5010, L300.3900 #### [facility] [address] [place], [place], [address] L499.0043on 09-27-2024 Trop T High Sen Normal <=14 [facility] Comment on above: Result Comment: CANC ELLATION ORDER Performed By: #### L 499.0043 #### [facility] [address] [place], [address] L501.4021on 09-27-2024 Trop T High Sen 16 ng/L High <=14 [facility] Comment on above: Performed By: #### L 501.9520, L506.0400, L501.17078 #### [facility] [address] [place], [address] Lymphocytes Auto (Unsp spec) [#/Vol]Ordered By: Hayden Sadler on 09-27-2024 Lymphocytes (Bld) [#/Vol] 0.70 10*3/uL Low 0.83-4.51 [facility] Lymphocytes/100 WBC Auto (Un sp spec)Ordered By: Hayden Sadler on 09-27-2024 Lymphocytes/100 WBC (Bld) 10.8 % Low 19-41 [facility] MCV (mean corpuscular volume ) determinationOrdered By: Hayden Sadler on 09-27-2024 MCV (RBC) [Entitic vol] 92.3 fL 81-99 [facility] Mean corpuscular hemoglobin (MCH) determinationOrdered By: Hayden Sadler on 09-27-2024 MCH (RBC) [Entitic mass] 32.4 pg High 27.0-32.0 [facility] Mean corpuscular hemoglobin concentration (MCHC) determinationOrdered By: Hayden Sadler on 09-27-2024 MCHC (RBC) [Mass/Vol] 35.1 g/dL 32-36 [facility] Mean platelet volume determi nationOrdered By: Hayden Sadler on 09-27-2024 Platelet mean volume (Bld) [Entitic vol] 9.9 fL 6.2-12.0 [facility] Monocyte percentageOrdered B y: Hayden Sadler on 09-27-2024 Monocytes/100 WBC (Bld) 8.3 % 0-10 [facility] Neutrophil percentageOrdered By: Hayden Sadler on 09-27-2024 Neutrophils/100 WBC (Bld) 78.7 % High 47-70 [facility] Nucleated red blood cell per centageOrdered By: Hayden Sadler on 09-27-2024 Nucleated RBC/100 WBC (Bld) [Ratio] 0 % 0-5 [facility] Partial Thromboplast Timeon 09-27-2024 aPTT Coag (Bld) [Time] 32.4 s Normal 24.1-36.2 [facility] Comment on above: Performed By: #### L 300.4310, L300.3900 #### [facility] [address] [place], [address] Platelet countOrdered By: Delfin Sadler on 09-27-2024 Platelets (Bld) [#/Vol] 219 10*3/uL 150-450 [facility] Potassium (Unsp spec) [Mass/ Vol]Ordered By: Hayden Sadler on 09-27-2024 Potassium [Moles/Vol] 4.6 mmol/L 3.3-5.1 [facility] Prothrombin Time w/INRon INR Coag (PPP) [Relative time] 1.1 {INR} Normal [facility] Comment on above: Performed By: #### L 300.4310, L300.3900 #### [facility] [address] [place], [address] PT Coag (PPP) [Time] 14.8 s Normal 11.7-14.9 [facility] Comment on above: Performed By: #### L 300.4310, L300.3900 #### [facility] [address] [place], [address] Prothrombin timeOrdered By: Hayden Sadler on 09-27-2024 PT Coag (PPP) [Time] 14.8 s 11.7-14.9 [facility] RBC Auto (Bld) [#/Vol]Ordere d By: Hayden Sadler on 09-27-2024 RBC (Bld) [#/Vol] 3.39 10*6/uL Low 4.2-5.4 [facility] Serum creatinine measurement (mass/volume)Ordered By: Hayden Sadler on 09-27-2024 Creatinine [Mass/Vol] 0.97 mg/dL 0.70-1.20 [facility] Serum glucose measurement (m ass/volume)Ordered By: Hayden Sadler on 09-27-2024 Glucose [Mass/Vol] 160 mg/dL High 70-99 [facility] Serum or plasma calcium ena urement (mass/volume)Ordered By: Hayden Sadler on 09-27-2024 Calcium [Mass/Vol] 9.3 mg/dL 7.6-11.0 [facility] Serum or plasma urea nitroge n measurement (mass/volume)Ordered By: Hayden Sadler on 09-27-2024 Urea nitrogen [Mass/Vol] 23 mg/dL High 4-19 [facility] Sodium levelOrdered By: Naomi Sadler on 09-27-2024 Sodium [Moles/Vol] 128 mmol/L Low 133-145 [facility] Troponin T.cardiac High sens itivity method [Mass/Vol]Ordered By: Hayden Sadler on 09-27-2024 Troponin T High Sensitivity 16 ng/L High <14 [facility] Troponin T High Sensitivity 2 Hour 14 ng/L <14 [facility] White blood cell (WBC) count Ordered By: Hayden Sadler on 09-27-2024 WBC (Bld) [#/Vol] 6.5 10*3/uL 4.4-11.0 [facility] aPTT Coag (PPP) [Time]Ordere d By: Hayden Sadler on 09-27-2024 aPTT Coag (Bld) [Time] 32.4 s 24.1-36.2 [facility] Basic Metabolic Profile (BMP )on 07-24-2024 BUN/CRE 26.3 RATIO High 10-20 [facility] Comment on above: Performed By: #### L 500.2500 #### [facility] [address] [place], [place], [id number] CA,Total 9.4 mg/dL Normal 8.5-10.1 [facility] Comment on above: Performed By: #### L 500.2500 #### [facility] [address] [place], [address] Chloride [Moles/Vol] 97 mmol/L Low 98-107 [facility] Comment on above: Performed By: #### L 500.2500 #### [facility] [address] [place], [address] CO2 [Moles/Vol] 24.0 mmol/L Normal 21.0-32.0 [facility] Comment on above: Performed By: #### L 500.2500 #### [facility] [address] [place], [address] Creatinine [Mass/Vol] 0.80 mg/dL Normal 0.55-1.02 [facility] Comment on above: Result Comment: The validity of the calculated GFR GFRAA in patients over 70 years has not been determined. Clinical correlation is essential. Performed By: #### L 500.2500 #### [facility] [address] [place], [address] EST GFR - AA 89 mL/min Normal >60 [facility] Comment on above: Result Comment: Afri can Guamanian GFR Calc Performed By: #### L 500.2500 #### [facility] [address] [place], [address] GAP 8 Normal 5-15 [facility] Comment on above: Performed By: #### L 500.2500 #### [facility] [address] [place], [address] GFR/1.73 sq M.predicted among non-blacks MDRD (S/P/Bld) [Vol rate/Area] 74 mL/min/{1.73_m2} Normal >60 [facility] Comment on above: Result Comment: Non- GFR Calc Performed By: #### L 500.2500 #### [facility] [address] [place], [address] Glucose [Mass/Vol] 120 mg/dL High 74-106 [facility] Comment on above: Result Comment: Fast ing Glucose result from 100 to 125 mg/dL suggests IMPAIRED HOMEOSTASIS per A.D.A. criteria. Performed By: #### L 500.2500 #### [facility] [address] [place], [address] Potassium [Moles/Vol] 4.5 mmol/L Normal 3.5-5.1 [facility] Comment on above: Performed By: #### L 500.2500 #### [facility] [address] [place], [address] Sodium [Moles/Vol] 129 mmol/L Low 136-145 [facility] Comment on above: Performed By: #### L 500.2500 #### [facility] [address] [place], [address] Urea nitrogen [Mass/Vol] 21 mg/dL High 7-18 [facility] Comment on above: Performed By: #### L 500.2500 #### [facility] [address] [place], [address] Blood urea nitrogen (BUN)/cr eatinine ratioOrdered By: Nati Hudson on 07-24-2024 Urea nitrogen/Creatinine [Mass ratio] 26.3 mg/mg High 10-20 [facility] Carbon dioxide measurementOr dered By: Nati Hudson on 07-24-2024 CO2 [Moles/Vol] 24.0 mmol/L 21.0-32.0 [facility] Chloride measurementOrdered By: Nati Hudson on 07-24-2024 Chloride [Moles/Vol] 97 mmol/L Low 98-107 [facility] Estimated glomerular filtrat ion rate (GFR) AmericanOrdered By: Nati Hudson on 07-24-2024 Estimated GFR (MDRD) Amer 89 mL/min >60 [facility] Comment on above: GFR Calc Glomerular filtration rate ( GFR) estimationOrdered By: Nati Hudson on 07-24-2024 Estimated GFR (MDRD) Non-Af Amer 74 mL/min >60 [facility] Comment on above: Non- GFR Calc Glucose measurementOrdered B y: Nati Hudson on 07-24-2024 Glucose [Mass/Vol] 120 mg/dL High 74-106 [facility] Comment on above: Fasting Glucose resu lt from 100 to 125 mg/dL suggests IMPAIRED HOMEOSTASIS per A.D.A. criteria. Potassium measurementOrdered By: Nati Hudson on 07-24-2024 Potassium [Moles/Vol] 4.5 mmol/L 3.5-5.1 [facility] Serum anion gap measurementO rdered By: Nati Hudson on 07-24-2024 Anion gap [Moles/Vol] 8 mmol/L 5-15 [facility] Serum or plasma calcium ena urement (mass/volume)Ordered By: Nati Hudson on 07-24-2024 Calcium [Mass/Vol] 9.4 mg/dL 8.5-10.1 [facility] Serum or plasma creatinine m easurement (mass/volume)Ordered By: Nati Hudson on 07-24-2024 Creatinine [Mass/Vol] 0.80 mg/dL 0.55-1.02 [facility] Comment on above: The validity of the calculated GFR & GFRAA in patients over 70 years has not been determined. Clinical correlation is essential. Serum or plasma urea nitroge n measurement (mass/volume)Ordered By: Nati Hudson on 07-24-2024 Urea nitrogen [Mass/Vol] 21 mg/dL High 7-18 [facility] Sodium levelOrdered By: Luiz Hudson on 07-24-2024 Sodium [Moles/Vol] 129 mmol/L Low 136-145 [facility] MRI BRAIN WITH PERFUSIONon 0 07-16-2024 MRI [...] on the March 14, 2024 PET/CT. Normal [facility] Basic Metabolic Profile (BMP )on 06-19-2024 BUN/CRE 25.9 RATIO High 10-20 [facility] Comment on above: Performed By: #### L 300.4310, L300.3900 #### [facility] [address] [place], [address] CA,Total 9.3 mg/dL Normal 8.5-10.1 [facility] Comment on above: Performed By: #### L 300.4310, L300.3900 #### [facility] [address] [place], [address] Chloride [Moles/Vol] 98 mmol/L Normal 98-107 [facility] Comment on above: Performed By: #### L 300.4310, L300.3900 #### [facility] [address] [place], [address] CO2 [Moles/Vol] 24.0 mmol/L Normal 21.0-32.0 [facility] Comment on above: Performed By: #### L 300.4310, L300.3900 #### [facility] [address] [place], [address] Creatinine [Mass/Vol] 0.89 mg/dL Normal 0.55-1.02 [facility] Comment on above: Result Comment: The validity of the calculated GFR GFRAA in patients over 70 years has not been determined. Clinical correlation is essential. Performed By: #### L 300.4310, L300.3900 #### [facility] [address] [place], [address] EST GFR - AA 79 mL/min Normal >60 [facility] Comment on above: Result Comment: Afri can Guamanian GFR Calc Performed By: #### L 300.4310, L300.3900 #### [facility] [address] [place], [address] GAP 6 Normal 5-15 [facility] Comment on above: Performed By: #### L 300.4310, L300.3900 #### [facility] [address] [place], [address] GFR/1.73 sq M.predicted among non-blacks MDRD (S/P/Bld) [Vol rate/Area] 65 mL/min/{1.73_m2} Normal >60 [facility] Comment on above: Result Comment: Non- GFR Calc Performed By: #### L 300.4310, L300.3900 #### [facility] [address] [place], [address] Glucose [Mass/Vol] 121 mg/dL High 74-106 [facility] Comment on above: Result Comment: Fast ing Glucose result from 100 to 125 mg/dL suggests IMPAIRED HOMEOSTASIS per A.D.A. criteria. Performed By: #### L 300.4310, L300.3900 #### [facility] [address] [place], [address] Potassium [Moles/Vol] 4.4 mmol/L Normal 3.5-5.1 [facility] Comment on above: Performed By: #### L 300.4310, L300.3900 #### [facility] [address] [place], [address] Sodium [Moles/Vol] 129 mmol/L Low 136-145 [facility] Comment on above: Performed By: #### L 300.4310, L300.3900 #### [facility] [address] [place], [address] Urea nitrogen [Mass/Vol] 23 mg/dL High 7-18 [facility] Comment on above: Performed By: #### L 300.4310, L300.3900 #### [facility] [address] [place], [address] Blood urea nitrogen (BUN)/cr eatinine ratioOrdered By: Nati Hudson on 06-19-2024 Urea nitrogen/Creatinine [Mass ratio] 25.9 mg/mg High 10-20 [facility] Carbon dioxide measurementOr dered By: Nati Hudson on 06-19-2024 CO2 [Moles/Vol] 24.0 mmol/L 21.0-32.0 [facility] Chloride measurementOrdered By: Nati Hudson on 06-19-2024 Chloride [Moles/Vol] 98 mmol/L 98-107 [facility] Direct serum free thyroxine (FT4) measurementOrdered By: Lolly Alejandra on 06-19-2024 Free T4 [Mass/Vol] 1.60 ng/dL High 0.76-1.46 [facility] Estimated glomerular filtrat ion rate (GFR) AmericanOrdered By: Nati Hudson on 06-19-2024 Estimated GFR (MDRD) Amer 79 mL/min >60 [facility] Comment on above: GFR Calc Free T3on 06-19-2024 Free T3 [Mass/Vol] 1.8 pg/mL Low 2.18-3.98 [facility] Comment on above: Performed By: #### L 501.9520, L506.0400, L501.15511 #### [facility] [address], [place], [address] Free [id number] By: Lolly Aleajndra on 06-19-2024 Free Triiodothyronine (T3) pg/dL 1.8 pg/mL Low 2.18-3.98 [facility] Glomerular filtration rate ( GFR) estimationOrdered By: Nati Hudson on 06-19-2024 Estimated GFR (MDRD) Non-Af Amer 65 mL/min >60 [facility] Comment on above: Non- GFR Calc Glucose measurementOrdered B y: Nati Hudson on 06-19-2024 Glucose [Mass/Vol] 121 mg/dL High 74-106 [facility] Comment on above: Fasting Glucose resu lt from 100 to 125 mg/dL suggests IMPAIRED HOMEOSTASIS per A.D.A. criteria. Osmolality (U) [Osmolality]O rdered By: Nati Hudson on 06-19-2024 Urine Osmolality 657 mOsm/KG >50 [facility] Comment on above: Normal Urine Referen ce Ranges Random: 50 - 1200 mOsm/kg H20 depending on fluid intake Random: >850 mOsm/kg after 12 hour fluid restriction 24 hour: ~300 - 900 mOsm/kg H2O Osmolality, Serumon 06-19-19 25 OSMOLALITY,SER 281 mOsm/KG Normal 280-301 [facility] Comment on above: Performed By: #### L 300.4310, L300.3900 #### [facility] [address] [place], [address] Osmolality, Urineon 06-19-19 25 OSMOLALITY,UR 657 mOsm/KG Normal [facility] Comment on above: Result Comment: Normal Urine Reference Ranges Random: 50 - 1200 mOsm/kg H20 depending on fluid intake Random: >850 mOsm/kg after 12 hour fluid restriction 24 hour: 300 - 900 mOsm/kg H2O Performed By: #### L 300.4310, L300.3900 #### [facility] [address] [place], [address] Osmolality, serumOrdered By: Nati Hudson on 06-19-2024 Serum Osmolality 281 mOsm/KG 280-301 [facility] Potassium measurementOrdered By: Nati Hudson on 06-19-2024 Potassium [Moles/Vol] 4.4 mmol/L 3.5-5.1 [facility] Serum anion gap measurementO rdered By: Nati Hudson on 06-19-2024 Anion gap [Moles/Vol] 6 mmol/L 5-15 [facility] Serum or plasma calcium ena urement (mass/volume)Ordered By: Nati Hudson on 06-19-2024 Calcium [Mass/Vol] 9.3 mg/dL 8.5-10.1 [facility] Serum or plasma creatinine m easurement (mass/volume)Ordered By: Nati Hudson on 06-19-2024 Creatinine [Mass/Vol] 0.89 mg/dL 0.55-1.02 [facility] Comment on above: The validity of the calculated GFR & GFRAA in patients over 70 years has not been determined. Clinical correlation is essential. Serum or plasma urea nitroge n measurement (mass/volume)Ordered By: Nati Hudson on 06-19-2024 Urea nitrogen [Mass/Vol] 23 mg/dL High 7-18 [facility] Sodium levelOrdered By: Luiz Hudson on 06-19-2024 Sodium [Moles/Vol] 129 mmol/L Low 136-145 [facility] Sodium urOrdered By: Ana Cristina Hudson on 06-19-2024 Sodium (U) [Moles/Vol] 75 mmol/L Not Establ. [facility] T4 Free Directon 06-19-2024 T4 FREE DIRECT 1.60 ng/dL High 0.76-1.46 [facility] Comment on above: Performed By: #### L 501.9520, L506.0400, L501.13358 #### [facility] [address] [place], [place], [address] TSH QnOrdered By: Lolly Bernabe on 06-19-2024 Thyroid Stimulating Hormone (TSH) 1.730 uIU/mL 0.358-3.740 [facility] Thyroid Stim Hormone (TSH)on 06-19-2024 TSH 1.730 uIU/mL Normal 0.358-3.740 [facility] Comment on above: Performed By: #### L 501.9520, L506.0400, L501.08050 #### [facility] [address] [place], [address] Urine Sodiumon 06-19-2024 Sodium (U) [Moles/Vol] 75 mmol/L Normal Not Establ. [facility] Comment on above: Performed By: #### L 300.4310, L300.3900 #### [facility] [address] [place], [address] AST(SGOT)on 04-17-2024 AST [Catalytic activity/Vol] 24 U/L Normal 15-37 [facility] Comment on above: Order Comment: Order Date: 03/20/24Order Info: 666-06 - BMPOrder Info: - LIPIDOrder Date: 11/18/23Order Info: 1920-01 - ASTOrder Info: 1741-11 - ALT Performed By: #### L 300.4310, L300.3900 #### [facility] [address] [place], [address] Alanine Aminotransferas (SGP T)on 04-17-2024 ALT [Catalytic activity/Vol] 46 U/L Normal 13-56 [facility] Comment on above: Order Comment: Order Date: 03/20/24Order Info: 666-06 - BMPOrder Info: [id number] - LIPIDOrder Date: 11/18/23Order Info: 1920-01 - ASTOrder Info: 1741-11 - ALT Performed By: #### L 300.4310, L300.3900 #### [facility] [address] [place], [address] Basic Metabolic Profile (BMP )on 04-17-2024 BUN/CRE 17.6 RATIO Normal 10-20 [facility] Comment on above: Order Comment: Order Date: 03/20/24 Order Info: 666-06 - BMP Order Info: - LIPID Order Date: 11/18/23 Order Info: 1920-01 - AST Order Info: 1741-11 - ALT Performed By: #### L 500.2500 #### [facility] [address] [place], [place], [address] CA,Total 9.1 mg/dL Normal 8.5-10.1 [facility] Comment on above: Order Comment: Order Date: 03/20/24 Order Info: 666-06 - BMP Order Info: - LIPID Order Date: 11/18/23 Order Info: 1920-01 - AST Order Info: 1741-11 - ALT Performed By: #### L 500.2500 #### [facility] [address] [place], [place], [address] Chloride [Moles/Vol] 99 mmol/L Normal 98-107 [facility] Comment on above: Order Comment: Order Date: 03/20/24 Order Info: 666-06 - BMP Order Info: - LIPID Order Date: 11/18/23 Order Info: 1920-01 - AST Order Info: 1741-11 - ALT Performed By: #### L 500.2500 #### [facility] [address] [place], [place], [address] CO2 [Moles/Vol] 24.0 mmol/L Normal 21.0-32.0 [facility] Comment on above: Order Comment: Order Date: 03/20/24 Order Info: 666-06 - BMP Order Info: - LIPID Order Date: 11/18/23 Order Info: 1920-01 - AST Order Info: 1741-11 - ALT Performed By: #### L 500.2500 #### [facility] [address] [place], [address] Creatinine [Mass/Vol] 0.91 mg/dL Normal 0.55-1.02 [facility] Comment on above: Order Comment: Order Date: 03/20/24 Order Info: 666-06 - BMP Order Info: - LIPID Order Date: 11/18/23 Order Info: 1920-01 AST Order Info: 1741-11 - ALT Result Comment: The validity of the calculated GFR GFRAA in patients over 70 years has not been determined. Clinical correlation is essential. Performed By: #### L 500.2500 #### [facility] [address] [place], [address] EST GFR - AA 77 mL/min Normal >60 [facility] Comment on above: Order Comment: Order Date: 03/20/24 Order Info: 666-06 - BMP Order Info: - LIPID Order Date: 11/18/23 Order Info: 1920-01 AST Order Info: 1741-11 - ALT Result Comment: Afri can Guamanian GFR Calc Performed By: #### L 500.2500 #### [facility] [address] [place], [place], [address] GAP 7 Normal 5-15 [facility] Comment on above: Order Comment: Order Date: 03/20/24 Order Info: 666-06 - BMP Order Info: - LIPID Order Date: 11/18/23 Order Info: 1920-01 - AST Order Info: 1741-11 - ALT Performed By: #### L 500.2500 #### [facility] [address] [place], [place], [address] GFR/1.73 sq M.predicted among non-blacks MDRD (S/P/Bld) [Vol rate/Area] 63 mL/min/{1.73_m2} Normal >60 [facility] Comment on above: Order Comment: Order Date: 03/20/24 Order Info: 666-06 - BMP Order Info: - LIPID Order Date: 11/18/23 Order Info: 1920-01 - AST Order Info: 1741-11 - ALT Result Comment: Non- GFR Calc Performed By: #### L 500.2500 #### [facility] [address] [place], [place], [address] Glucose [Mass/Vol] 121 mg/dL High 74-106 [facility] Comment on above: Order Comment: Order Date: 03/20/24 Order Info: 666-06 - BMP Order Info: - LIPID Order Date: 11/18/23 Order Info: 1920-01 - AST Order Info: 1741-11 - ALT Result Comment: Fast ing Glucose result from 100 to 125 mg/dL suggests IMPAIRED HOMEOSTASIS per A.D.A. criteria. Performed By: #### L 500.2500 #### [facility] [address] [place], [place], [address] Potassium [Moles/Vol] 4.6 mmol/L Normal 3.5-5.1 [facility] Comment on above: Order Comment: Order Date: 03/20/24 Order Info: 666-06 - BMP Order Info: [id number] - LIPID Order Date: 11/18/23 Order Info: 1920-01 - AST Order Info: 1741-11 - ALT Performed By: #### L 500.2500 #### [facility] [address] [place], [place], [address] Sodium [Moles/Vol] 130 mmol/L Low 136-145 [facility] Comment on above: Order Comment: Order Date: 03/20/24 Order Info: 666-06 - BMP Order Info: 45326-0 - LIPID Order Date: 11/18/23 Order Info: 1920-01 - AST Order Info: 1741-11 - ALT Performed By: #### L 500.2500 #### [facility] [address] [place], [place], [address] Urea nitrogen [Mass/Vol] 16 mg/dL Normal 7-18 [facility] Comment on above: Order Comment: Order Date: 03/20/24 Order Info: 666-06 - BMP Order Info: - LIPID Order Date: 11/18/23 Order Info: 1920-01 - AST Order Info: 1741-11 - ALT Performed By: #### L 500.2500 #### [facility] [address] [place], [address] Lipid Profileon 04-17-2024 Cholesterol [Mass/Vol] 160 mg/dL Normal 200 [facility] Comment on above: Order Comment: Order Date: 03/20/24Order Info: 666-06 - BMPOrder Info: - LIPIDOrder Date: 11/18/23Order Info: 1920-01 - ASTOrder Info: 6 - ALT Result Comment: <200 mg/dL Desirable 200-240 mg/dL Borderline >240 mg/dL High Risk Performed By: #### L 300.4310, L300.3900 #### [facility] [address] [place], [address] Cholesterol in HDL [Mass/Vol] 73 mg/dL Normal [facility] Comment on above: Order Comment: Order Date: 03/20/24Order Info: 666-06 - BMPOrder Info: - LIPIDOrder Date: 11/18/23Order Info: 1920-01 - ASTOrder Info: 1741-11 - ALT Result Comment: The drugs N-Acetylcysteine and Metamizole may falsely depress this assay. Reference Range HDL <40 mg/dL Low HDL Cholesterol HDL >or= 60 mg/dL High HDL Cholesterol Performed By: #### L 300.4310, L300.3900 #### [facility] [address] [place], [address] Cholesterol in LDL [Mass/Vol] 71 mg/dL Normal 0-130 [facility] Comment on above: Order Comment: Order Date: 03/20/24Order Info: 666-06 - BMPOrder Info: - LIPIDOrder Date: 11/18/23Order Info: 1920-01 - ASTOrder Info: 1741-11 - ALT Performed By: #### L 300.4310, L300.3900 #### [facility] [address] [place], [address] Cholesterol in VLDL [Mass/Vol] 16 mg/dL Normal 5-40 [facility] Comment on above: Order Comment: Order Date: 03/20/24Order Info: 666-06 - BMPOrder Info: - LIPIDOrder Date: 11/18/23Order Info: 1920-01 - ASTOrder Info: 1741-11 - ALT Performed By: #### L 300.4310, L300.3900 #### [facility] [address] [place], [address] Triglyceride [Mass/Vol] 78 mg/dL Normal [facility] Comment on above: Order Comment: Order Date: 03/20/24Order Info: 0667-1 - BMPOrder Info: 33341-4 - LIPIDOrder Date: 11/18/23Order Info: 1920-01 - ASTOrder Info: 1741-11 - ALT Result Comment: The drugs N-Acetylcysteine and Metamizole may falsely depress this assay. Serum Triglycerides Reference Interval Normal <150 mg/dL Borderline high 150 - 199 mg/dL High 200 - 499 mg/dL Very High > or = 500 mg/dL Performed By: #### L 300.4310, L300.3900 #### [facility] [address] [place], [address] Protein+Creatinine Ratio,Uri neon 04-17-2024 PROT:CRE RATIO 301 mg/g CRE High 0-200 [facility] Comment on above: Performed By: #### L 500.2500 #### [facility] [address] [place], [address] Protein (U) [Mass/Vol] 20.1 mg/dL High <11.9 [facility] Comment on above: Performed By: #### L 500.2500 #### [facility] [address] [place], [address] UR CREAT 66.70 mg/dL Normal NO RANGE EST. [facility] Comment on above: Performed By: #### L 500.2500 #### [facility] [address] [place], [address] MRI BRAIN WITH PERFUSIONon 1 MRI BRAIN [...] have reviewed and approved this report. Normal [facility] PT Skull base to mid-thighon 03-14-2024 [...] the patient was positioned on the Siemens WemoLabgraph mCT TOF< PET/CT-64, Ulices imaging unit.. A [...] although residual/recurrent disease cannot be entirely excluded. [facility] Radiology Study observation (narrative) [facility] PT Skull base to mid-thighOr dered By: Anthony Ricci on 03-14-2024 [facility] Work Phone: PT D/C Summary (1)on 024 PT D/C Summary (1) [facility] Physical Therapy Health[address] [place] [address] / REHABILITATION SERVICES DISCHARGE SUMMARY MR#: [id number] Acct: [id number] Name: SARAH MCGUIRE Rep #: [id number] : 1945 78 From: Corey Zhao DPT, [...] LEFS is not improving overall She did order picker/assembler object with two hands, place on walker [...] please feel free to call me at [phone]. Thank you for the referral of this patient. Sincerely, Corey Zhao, DPT, OCS, CSCS Balance/Gait/Functional tests Balance/Special Test Scores Lower Extremity Functional Score: 29 TUG Test Time Seconds: 31 Tug Test: >30sec.=impaired mobility 30 Second Chair Rise Test Seconds: 15 Improvement % Improvement: 25 03/09/24 1623 CC: Dr. Monika Venegas MD EBG Signed Normal [facility] OT D/C Summaryon 03-01-2024 OT D/C Summary [facility] Occupational Therapy Health[address] [place] [address] / REHABILITATION SERVICES DISCHARGE SUMMARY MR#: [id number] Acct: [id number] Name: SARAH MCGUIRE Rep #: [id number] : 1945 78 From: Lauryn Tubbs Referring DrEnoc: Dr. Monika Venegas MD Status: RE G [...] light IADL tasks 01/10/24: 11.5 pounds 02/22: 9 pounds 03/01/24: 11.3 pounds NOT MET pt [...] 02/22:14.1# GOAL MET pt will improve L custom bookbinder strength to 35 pounds or more in order to maximize I in light IADL tasks as well as cross stitching 01/10/24: 25# 02/22: 30# 03/01: 32# NOT MET pt will improve R custom bookbinder strength to 30 pounds or more in [...] assistance in order to return to PLOF NH GOAL MET Plan Plan: AROM/AAROM/PROM strengthening coordination D/C Information Discharge Comments: pt seen for dx of CVA. progress made in fine motor control manipulation skills as well as overall UB strength. pt to continue exercises and manipulation tasks at home for ongoing progress. d/c sentence: If there are questions or concerns regarding this patient's occupational therapy, please fell free to call me at [phone]. Thank you for the referral of this patient. Sincerely, Lauryn Tubbs 03/01/24 1632 CC: Dr. Monika Venegas MD CK Signed Normal [facility] OT D/C of Non Returning Pton 03-01-2024 OT D/C of Non Returning Pt [facility] [place] [id number] / REHABILITATION SERVICES DISCHARGE SUMMARY MR#: [id number] Acct: [id number] Name: SARAH MCGUIRE Rep #: [id number] : 1945 78 From: Lauryn Tubbs Referring [...] CVA. pt seen for improved UB strength [facility] ed in adaptive equipment. pt has progressed in all goals and to be discharged at this time pt in agreeance. At this point I will be discontinuing this patient from occupational therapy. I would be happy to see this patient again in the future if found appropriate by the physician. Thank you! Lauryn Tubbs 03/01/24 5707 CC: Dr. Monika Venegas MD CK Signed Normal [facility] Comprehensive Metabolic Prof ilon 02-24-2024 Albumin [Mass/Vol] 3.9 g/dL Normal 3.2-5.0 [facility] Comment on above: Order Comment: Order Date: 01/17/24Order Info: 0786-1 - CMP Performed By: #### L 499.0043 #### [facility] [address] [place], [address] Albumin/Globulin [Mass ratio] 1.3 {ratio} Normal 0.9-2.4 [facility] Comment on above: Order Comment: Order Date: 01/17/24Order Info: 0786-1 - CMP Performed By: #### L 499.0043 #### [facility] [address] [place], [address] ALK P 81 U/L Normal 45-117 [facility] Comment on above: Order Comment: Order Date: 01/17/24Order Info: 0786-1 - CMP Performed By: #### L 499.0043 #### [facility] [address] [place], [address] ALT [Catalytic activity/Vol] 33 U/L Normal 13-56 [facility] Comment on above: Order Comment: Order Date: 01/17/24Order Info: 0786-1 - CMP Performed By: #### L 499.0043 #### [facility] [address] [place], [address] AST [Catalytic activity/Vol] 22 U/L Normal 15-37 [facility] Comment on above: Order Comment: Order Date: 01/17/24Order Info: 0786-1 - CMP Performed By: #### L 499.0043 #### [facility] [address] [place], [address] Bilirubin [Mass/Vol] 0.80 mg/dL Normal 0.20-1.00 [facility] Comment on above: Order Comment: Order Date: 01/17/24Order Info: 0786-1 - CMP Result Comment: For patients on eltrombopag therapy, use of Dimension [place] TBIL is not recommended. Performed By: #### L 499.0043 #### [facility] [address] [place], [address] BUN/CRE 16.5 RATIO Normal 10-20 [facility] Comment on above: Order Comment: Order Date: 01/17/24Order Info: 86-1 - CMP Performed By: #### L 499.0043 #### [facility] [address] [place], [address] CA,Total 9.1 mg/dL Normal 8.5-10.1 [facility] Comment on above: Order Comment: Order Date: 01/17/24Order Info: 0786-1 - CMP Performed By: #### L 499.0043 #### [facility] [address] [place], [address] Chloride [Moles/Vol] 96 mmol/L Low 98-107 [facility] Comment on above: Order Comment: Order Date: 01/17/24Order Info: 0786-1 - CMP Performed By: #### L 499.0043 #### [facility] [address] [place], [address] CO2 [Moles/Vol] 27.0 mmol/L Normal 21.0-32.0 [facility] Comment on above: Order Comment: Order Date: 01/17/24Order Info: 0786-1 - CMP Performed By: #### L 499.0043 #### [facility] [address] [place], [place], [address] Creatinine [Mass/Vol] 0.73 mg/dL Normal 0.55-1.02 [facility] Comment on above: Order Comment: Order Date: 01/17/24Order Info: 0786-1 - CMP Result Comment: The validity of the calculated GFR GFRAA in patients over 70 years has not been determined. Clinical correlation is essential. Performed By: #### L 499.0043 #### [facility] [address] [place], [address] EST GFR - AA 99 mL/min Normal >60 [facility] Comment on above: Order Comment: Order Date: 01/17/24Order Info: 0786-1 - CMP Result Comment: Afri can Guamanian GFR Calc Performed By: #### L 499.0043 #### [facility] [address] [place], [address] GAP 7 Normal 5-15 [facility] Comment on above: Order Comment: Order Date: 01/17/24Order Info: 0786-1 - CMP Performed By: #### L 499.0043 #### [facility] [address] [place], [address] GFR/1.73 sq M.predicted among non-blacks MDRD (S/P/Bld) [Vol rate/Area] 82 mL/min/{1.73_m2} Normal >60 [facility] Comment on above: Order Comment: Order Date: 01/17/24Order Info: 0786-1 - CMP Result Comment: Non- GFR Calc Performed By: #### L 499.0043 #### [facility] [address] [place], [address] Globulin (S) [Mass/Vol] 2.9 g/dL Normal 2.2-4.[address] [facility] Comment on above: Order Comment: Order Date: 01/17/24Order Info: 0786-1 - CMP Performed By: #### L 499.0043 #### [facility] [address] [place], [address] Glucose [Mass/Vol] 145 mg/dL High 74-106 [facility] Comment on above: Order Comment: Order Date: 01/17/24Order Info: 0786-1 - CMP Result Comment: Fast ing Glucose result greater than or equal to 126 mg/dL suggests DIABETES MELLITUS per A.D.A. criteria. Performed By: #### L 499.0043 #### [facility] [address] [place], [address] Potassium [Moles/Vol] 3.4 mmol/L Low 3.5-5.1 [facility] Comment on above: Order Comment: Order Date: 01/17/24Order Info: 0786-1 - CMP Performed By: #### L 499.0043 #### [facility] [address] [place], [address] Sodium [Moles/Vol] 130 mmol/L Low 136-145 [facility] Comment on above: Order Comment: Order Date: 01/17/24Order Info: 0786-1 - CMP Performed By: #### L 499.0043 #### [facility] [address] [place], [place], [address] T PROT 6.8 g/dL Normal 6.4-8.2 [facility] Comment on above: Order Comment: Order Date: 01/17/24Order Info: 0786-1 - CMP Performed By: #### L 499.0043 #### [facility] [address] [place], [address] Urea nitrogen [Mass/Vol] 12 mg/dL Normal 7-18 [facility] Comment on above: Order Comment: Order Date: 01/17/24Order Info: 0786-1 - CMP Performed By: #### L 499.0043 #### [facility] [address] [place], [address] Re-Evalution OTon 02-23-2024 Re-Evalution OT [facility] [address] [place] [address] / REEVALUATION / MEDICARE RECERTIFICATION OCCUPATIONAL THERAPY MR#: [id number] Acct: [id number] Name: SARAH MCGUIRE Rep #: [id number] : 1945 78 From: Lauryn Tubbs Referring [...] L bicep 16.2# R bicep 14.1# L custom bookbinder 30# R custom bookbinder 35# Plan Plan Frequency: 2x /Week Duration: [...] 02/22:14.1# GOAL MET pt will improve L custom bookbinder strength to 35 pounds or more in order to maximize I in light IADL tasks as well as cross stitching 01/10/24: 25# 02/22: 30# pt will improve R custom bookbinder strength to 30 pounds or more in [...] assistance in order to return to PLOF NH GOAL MET Anticipated Interventions Anticipated Interventions Anticipated Interventions: A/AAROM/PROM, Strengthening, Joint Protection/Energy Conservation, Fine Motor Coord/Antelmo, Neuro Reeducation, ADL Training, Education re assistive Equipment, Education re Diagnosis, Caregiver Training and Home Program Re-Evaluation Ending Re-evaluation ending: Please do not hesitate to contact me at [phone] by phone or if you have questions or concerns regarding this new plan of care! Sincerely, Lauryn Tubbs 02/23/24 1378 CC: Dr. Monika Venegas MD CK Signed For Medicare only, by signing this I certify the plan of care. Physicians Signature Date Normal [facility] Re-Evaluation - PT (1)on Re-Evaluation - PT (1) [facility] Physical Therapy Health[address] [place] [address] / REEVALUATION / MEDICARE RECERTIFICATION PHYSICAL THERAPY MR#: [id number] Acct: [id number] Name: SARAH MCGUIRE Rep #: [id number] : 1945 78 From: Corey Zhao DPT, [...] weight shift and push it across floor 8 x placing it back on shelf with two hands without LOB. Goal Time Frame: 4-6 Weeks Goal Progress: NEW GOAL Anticipated Interventions Anticipated Interventions Patient/Client Instruction: Educate patient on: Condition For the Purpose of:: To improve gait and locomotor functions Therapeutic Exercise to Include: Strength training and Gait and locomotor training Re-Evaluation Ending Re-evaluation ending: Please do not hesitate to contact me at [phone] by phone or if you have questions or concerns regarding this new plan of care! Sincerely, Corey Zhao, KRISTOFERT, OCS, CSCS 01/19/24 0902 CC: Dr. Monika Venegas MD EBG Signed For Medicare only, by signing this I certify the plan of care. Physicians Signature Date Normal [facility] 12 Lead EKG performed by [facility] on 01-17-2024 12 Lead EKG performed by [place] [address] [place] [address] 12 Lead EKG performed by [facility] 01/17/24 1323 MR#: [id number] Acct: [id number] Name: SARAH MCGUIRE Rep #: [id number] : 1945 78 From: oLlly Haro Attending Dr: MAGALY Davis Status: DEP AMB Ordering Dr: Lolly Alejandra Date: 01/04 08/27 Location: [facility] Sex: F C Admitted: BMS/12 Lead EKG performed by [facility] ECG Report Interpretation ---Sinus Bradycardia WITHIN NORMAL LIMITSElectronically signed on 02/07/2024 at 15:56 by German [employer] Version 8610 02/07/24 1601 Date Lolly MCKENZIE CC: Dr. Monika Venegas MD Date Dictated: 01/17/241322 Date Transcribed: 01/17/241322 Airborne And Air Delivery Specialist: SUSAN Signed Normal [facility] Cardiology Visit Reporton Cardiology Visit Report [facility] [address] [place] [address] OFFICE VISIT Date of Service: 01/17/24 MR#: [id number] Acct: [id number] Name: SARAH MCGUIRE Rep #: [id number] : 1945 Provider: MAGALY Fitzgerald Age/Sex: 78/F Location: [facility] Status: Signed with Addenda ADDENDUM by [...] (1) Paroxysmal atrial fibrillation: Status: Acute (2) long-term current use of amiodarone: Status: Acute Orders: Orders 12 Lead EKG performed by [facility] Today Z79.899 - Other meterman (current) drug therapy T4 Free Direct Today I48.0 - Paroxysmal atrial fibrillation, Z79.899 - Other meterman (current) drug therapy Thyroid Stim Hormone (TSH) Today I48.0 - Paroxysmal atrial fibrillation, Z79.899 - Other meterman (current) drug therapy Free T3 Today I48.0 - Paroxysmal atrial fibrillation, Z79.899 - Other nursing home (current) drug therapy Plan Details Follow Up: 9 Months ([place] ) 01/17/24 1535 A> Date Lolly Alejandra [...] every 3 months. She is still at [facility] for PT/OT. She is ambulating with walker. 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 Normal [facility] Basic Metabolic Profile (BMP )on 01-13-2024 BUN/CRE 18.5 RATIO Normal 10-20 [facility] Comment on above: Order Comment: Order Date: 12/19/23Order Info: 0667-1 - BMP Performed By: #### L 501.9520, L506.0400, L501.89793 #### [facility] [address] [place], [address] CA,Total 9.0 mg/dL Normal 8.5-10.1 [facility] Comment on above: Order Comment: Order Date: 12/19/23Order Info: 666-06 - BMP Performed By: #### L 501.9520, L506.0400, L501.39478 #### [facility] [address] [place], [address] Chloride [Moles/Vol] 100 mmol/L Normal 98-107 [facility] Comment on above: Order Comment: Order Date: 12/19/23Order Info: 0667 - BMP Performed By: #### L 501.9520, L506.0400, L501.69650 #### [facility] [address] [place], [address] CO2 [Moles/Vol] 28.0 mmol/L Normal 21.0-32.0 [facility] Comment on above: Order Comment: Order Date: 12/19/23Order Info: 0667- - BMP Performed By: #### L 501.9520, L506.0400, L501.50800 #### [facility] [address] [place], [address] Creatinine [Mass/Vol] 0.81 mg/dL Normal 0.55-1.02 [facility] Comment on above: Order Comment: Order Date: 12/19/23Order Info: 06- - BMP Result Comment: The validity of the calculated GFR GFRAA in patients over 70 years has not been determined. Clinical correlation is essential. Performed By: #### L 501.9520, L506.0400, L501.54896 #### [facility] [address] [place], [address] EST GFR - AA 87 mL/min Normal >60 [facility] Comment on above: Order Comment: Order Date: 12/19/23Order Info: 0667 - BMP Result Comment: Afri can Guamanian GFR Calc Performed By: #### L 501.9520, L506.0400, L501.78101 #### [facility] [address] [place], [address] GAP 7 Normal 5-15 [facility] Comment on above: Order Comment: Order Date: 12/19/23Order Info: 0667 - BMP Performed By: #### L 501.9520, L506.0400, L501.77720 #### [facility] [address] [place], [address] GFR/1.73 sq M.predicted among non-blacks MDRD (S/P/Bld) [Vol rate/Area] 72 mL/min/{1.73_m2} Normal >60 [facility] Comment on above: Order Comment: Order Date: 12/19/23Order Info: 0667- - BMP Result Comment: Non- GFR Calc Performed By: #### L 501.9520, L506.0400, L501.93108 #### [facility] [address] [place], [address] Glucose [Mass/Vol] 161 mg/dL High 74-106 [facility] Comment on above: Order Comment: Order Date: 12/19/23Order Info: 0667- - BMP Result Comment: Fast ing Glucose result greater than or equal to 126 mg/dL suggests DIABETES MELLITUS per A.D.A. criteria. Performed By: #### L 501.9520, L506.0400, L501.25885 #### [facility] [address] [place], [address] Potassium [Moles/Vol] 3.3 mmol/L Low 3.5-5.1 [facility] Comment on above: Order Comment: Order Date: 12/19/23Order Info: 0667-1 - BMP Performed By: #### L 501.9520, L506.0400, L501.52594 #### [facility] [address] [place], [address] Sodium [Moles/Vol] 135 mmol/L Low 136-145 [facility] Comment on above: Order Comment: Order Date: 12/19/23Order Info: 0667 - BMP Performed By: #### L 501.9520, L506.0400, L501.41929 #### [facility] [address] [place], [address] Urea nitrogen [Mass/Vol] 15 mg/dL Normal 7-18 [facility] Comment on above: Order Comment: Order Date: 12/19/23Order Info: 06671 - BMP Performed By: #### L 501.9520, L506.0400, L501.61332 #### [facility] [address] [place], [address] Re-Evalution OTon 01-10-2024 Re-Evalution OT [facility] Occupational Therapy [address] [place] [address] / REEVALUATION / MEDICARE RECERTIFICATION OCCUPATIONAL THERAPY MR#: [id number] Acct: [id number] Name: SARAH MCGUIRE Rep #: [id number] : 1945 78 From: Lauryn Tubbs Referring [...] tasks 01/10/24: 9# pt will improve L custom bookbinder strength to 35 pounds or more in order to maximize I in light IADL tasks as well as cross stitching 01/10/24: 25# pt will improve R custom bookbinder strength to 30 pounds or more in [...] do not hesitate to contact me at [phone] by phone or if you have questions or concerns regarding this new plan of care! Sincerely, Lauryn Tubbs 01/10/24 6255 CC: Dr. Monika Venegas MD CK Signed For Medicare only, by signing this I certify the plan of care. Physicians Signature Date Normal [facility] Basic Metabolic Profile (BMP )on 12-16-2023 BUN/CRE 18.1 RATIO Normal 10-20 [facility] Comment on above: Order Comment: Order Date: 11/21/23Order Info: 0667-1 - BMP Performed By: #### L 499.0043 #### [facility] [address] [place], [place], [id number] ([address]) CA,Total 9.5 mg/dL Normal 8.5-10.1 [facility] Comment on above: Order Comment: Order Date: 11/21/23Order Info: 0667-1 - BMP Performed By: #### L 499.0043 #### [facility] [address] [place], [address] Chloride [Moles/Vol] 96 mmol/L Low 98-107 [facility] Comment on above: Order Comment: Order Date: 11/21/23Order Info: 0667-1 - BMP Performed By: #### L 499.0043 #### [facility] [address] [place], [address] CO2 [Moles/Vol] 26.0 mmol/L Normal 21.0-32.0 [facility] Comment on above: Order Comment: Order Date: 11/21/23Order Info: 666-06 - BMP Performed By: #### L 499.0043 #### [facility] [address] [place], [address] Creatinine [Mass/Vol] 0.83 mg/dL Normal 0.55-1.02 [facility] Comment on above: Order Comment: Order Date: 11/21/23Order Info: 666-06 - BMP Result Comment: The validity of the calculated GFR GFRAA in patients over 70 years has not been determined. Clinical correlation is essential. Performed By: #### L 499.0043 #### [facility] [address] [place], [address] EST GFR - AA 85 mL/min Normal >60 [facility] Comment on above: Order Comment: Order Date: 11/21/23Order Info: 666-06 - BMP Result Comment: Afri can Guamanian GFR Calc Performed By: #### L 499.0043 #### [facility] [address] [place], [address] GAP 9 Normal 5-15 [facility] Comment on above: Order Comment: Order Date: 11/21/23Order Info: 06 - BMP Performed By: #### L 499.0043 #### [facility] [address] [place], [address] GFR/1.73 sq M.predicted among non-blacks MDRD (S/P/Bld) [Vol rate/Area] 70 mL/min/{1.73_m2} Normal >60 [facility] Comment on above: Order Comment: Order Date: 11/21/23Order Info: 666-06 - BMP Result Comment: Non- GFR Calc Performed By: #### L 499.0043 #### [facility] [address] [place], [place], [address] Glucose [Mass/Vol] 98 mg/dL Normal 74-106 [facility] Comment on above: Order Comment: Order Date: 11/21/23Order Info: 666-06 - BMP Performed By: #### L 499.0043 #### [facility] [address] [place], [address] Potassium [Moles/Vol] 3.4 mmol/L Low 3.5-5.1 [facility] Comment on above: Order Comment: Order Date: 11/21/23Order Info: 666-06 - BMP Performed By: #### L 499.0043 #### [facility] [address] [place], [address] Sodium [Moles/Vol] 131 mmol/L Low 136-145 [facility] Comment on above: Order Comment: Order Date: 11/21/23Order Info: 666-06 - BMP Performed By: #### L 499.0043 #### [facility] [address] [place], [place], [address] Urea nitrogen [Mass/Vol] 15 mg/dL Normal 7-18 [facility] Comment on above: Order Comment: Order Date: 11/21/23Order Info: 666-06 - BMP Performed By: #### L 499.0043 #### [facility] [address] [place], [address] MRI BRAIN WITH PERFUSIONon 0 12-01-2023 MRI [...] with no evidence of recurrent tumor. Normal [facility] OT General Evaluationon 11-04 OT General Evaluation [facility] Occupational Therapy Health[address] [place] [address] / REHABILITATION SERVICES INITIAL EVALUATION MR#: [id number] Acct: [id number] Name: SARAH MCGUIRE Rep #: [id number] : 1945 78 From: Lauryn Tubbs Referring Dr.: Dr. Monika Venegas MD Status: RE G [facility] Insurance: MEDICARE PART A B Eval Date: [...] back to surgery pt brought back to [facility] december 06 for rehabilitation drain tube [...] pounds Elbow: L 10.7 R 8.3 pounds Department Clerk: L 30 R 25 pounds Lateral Pinch: [...] light IADL tasks pt will improve L custom bookbinder strength to 35 pounds or more in order to maximize I in light IADL tasks as well as cross stitching pt will improve R custom bookbinder strength to 30 pounds or more in [...] to be FAXED BACK to us at [phone] for Medicare purposes. Please let me know if there are questions or concerns regarding this plan of care. Physician Signature: (more content not included)... Normal [facility] AST(SGOT)on 11-19-2023 AST [Catalytic activity/Vol] 29 U/L Normal 15-37 [facility] Comment on above: Performed By: #### L 499.0043 #### [facility] [address] [place], [place], [id number] Alanine Aminotransferas (SGP T)on 11-19-2023 ALT [Catalytic activity/Vol] 45 U/L Normal 13-56 [facility] Comment on above: Performed By: #### L 501.9520, L506.0400, L501.03310 #### [facility] [address] [place], [address] Basic Metabolic Profile (BMP )on 11-19-2023 BUN/CRE 15.0 RATIO Normal 10-20 [facility] Comment on above: Performed By: #### L 499.0043 #### [facility] [address] [place], [address] CA,Total 9.3 mg/dL Normal 8.5-10.1 [facility] Comment on above: Performed By: #### L 499.0043 #### [facility] [address] [place], [address] Chloride [Moles/Vol] 94 mmol/L Low 98-107 [facility] Comment on above: Performed By: #### L 499.0043 #### [facility] [address] [place], [address] CO2 [Moles/Vol] 29.0 mmol/L Normal 21.0-32.0 [facility] Comment on above: Performed By: #### L 499.0043 #### [facility] [address] [place], [address] Creatinine [Mass/Vol] 0.73 mg/dL Normal 0.55-1.02 [facility] Comment on above: Result Comment: The validity of the calculated GFR GFRAA in patients over 70 years has not been determined. Clinical correlation is essential. Performed By: #### L 499.0043 #### [facility] [address] [place], [address] EST GFR - AA 99 mL/min Normal >60 [facility] Comment on above: Result Comment: Afri can Guamanian GFR Calc Performed By: #### L 499.0043 #### [facility] [address] [place], [address] GAP 8 Normal 5-15 [facility] Comment on above: Performed By: #### L 499.0043 #### [facility] [address] [place], [address] GFR/1.73 sq M.predicted among non-blacks MDRD (S/P/Bld) [Vol rate/Area] 81 mL/min/{1.73_m2} Normal >60 [facility] Comment on above: Result Comment: Non- GFR Calc Performed By: #### L 499.0043 #### [facility] [address] [place], [address] Glucose [Mass/Vol] 114 mg/dL High 74-106 [facility] Comment on above: Result Comment: Fast ing Glucose result from 100 to 125 mg/dL suggests IMPAIRED HOMEOSTASIS per A.D.A. criteria. Performed By: #### L 499.0043 #### [facility] [address] [place], [address] Potassium [Moles/Vol] 3.6 mmol/L Normal 3.5-5.1 [facility] Comment on above: Performed By: #### L 499.0043 #### [facility] [address] [place], [address] Sodium [Moles/Vol] 131 mmol/L Low 136-145 [facility] Comment on above: Performed By: #### L 499.0043 #### [facility] [address] [place], [address] Urea nitrogen [Mass/Vol] 11 mg/dL Normal 7-18 [facility] Comment on above: Performed By: #### L 499.0043 #### [facility] [address] [place], [address] Lipid Profileon 11-19-2023 Cholesterol [Mass/Vol] 158 mg/dL Normal 200 [facility] Comment on above: Result Comment: <200 mg/dL Desirable 200-240 mg/dL Borderline >240 mg/dL High Risk Performed By: #### L 499.0043 #### [facility] [address] [place], [address] Cholesterol in HDL [Mass/Vol] 67 mg/dL Normal [facility] Comment on above: Result Comment: The drugs N-Acetylcysteine and Metamizole may falsely depress this assay. Reference Range HDL <40 mg/dL Low HDL Cholesterol HDL >or= 60 mg/dL High HDL Cholesterol Performed By: #### L 499.0043 #### [facility] [address] [place], [address] Cholesterol in LDL [Mass/Vol] 78 mg/dL Normal 0-130 [facility] Comment on above: Performed By: #### L 499.0043 #### [facility] [address] [place], [address] Cholesterol in VLDL [Mass/Vol] 13 mg/dL Normal 5-40 [facility] Comment on above: Performed By: #### L 499.0043 #### [facility] [address] [place], [address] Triglyceride [Mass/Vol] 67 mg/dL Normal [facility] Comment on above: Result Comment: The drugs N-Acetylcysteine and Metamizole may falsely depress this assay. Serum Triglycerides Reference Interval Normal <150 mg/dL Borderline high 150 - 199 mg/dL High 200 - 499 mg/dL Very High > or = 500 mg/dL Performed By: #### L 499.0043 #### [facility] [address] [place], [address] Protein+Creatinine Ratio,Uri neon 11-18-2023 PROT:CRE RATIO 463 mg/g CRE High 0-200 [facility] Comment on above: Performed By: #### L 499.0043 #### [facility] [address] [place], [address] Protein (U) [Mass/Vol] 13.1 mg/dL High <11.9 [facility] Comment on above: Performed By: #### L 499.0043 #### [facility] [address] [place], [address] UR CREAT 28.30 mg/dL Normal NO RANGE EST. [facility] Comment on above: Performed By: #### L 499.0043 #### [facility] [address] [place], [address] Basophil percentageOrdered B y: Lolly Alejandra on 07-19-2023 Bilirubin [Mass/Vol] 1.00 mg/dL 0.20-1.00 [facility] Comment on above: For patients on eltr ombopag therapy, use of Dimension [place] TBIL is not recommended. Protein [Mass/Vol] 7.2 g/dL 6.4-8.2 [facility] Direct bilirubinOrdered By: Lolly Alejandra on 07-19-2023 Bilirubin.direct [Mass/Vol] 0.32 mg/dL 0.00-0.30 [facility] - Chemistry and C hemistry - challengeOrdered By: Lolly Alejandra on 07-19-2023 ALP [Catalytic activity/Vol] 84 U/L 45-117 [facility] ALT [Catalytic activity/Vol] 29 U/L 13-56 [facility] Globulin (S) [Mass/Vol] 3.0 g/dL 2.2-4.[address] [facility] No Panel InformationOrdered By: Lolly Alejandra on 07-19-2023 Free Triiodothyronine (T3) pg/dL 2.1 pg/mL 2.18-3.98 [facility] Serum or plasma thyroid stim ulating hormone (TSH) measurement (units/volume)Ordered By: Lolly Alejandra on 07-19-2023 TSH Qn 2.69 uIU/mL 0.358-3.74 [facility] Thin prep Papanicolaou smear with manual screeningOrdered By: Lolly Alejandra on 07-19-2023 Thin prep Papanicolaou smear with manual screening 4.2 g/dL 3.2-5.0 [facility] Thin prep Papanicolaou smear with manual screening 18 U/L 15-37 [facility] Thin prep Papanicolaou smear with manual screening 1.53 ng/dL 0.76-1.46 [facility] RAD ONC ARIA FRACTION SUMMAR Yon 02-16-2023 Course Elapsed Days [address] [facility] Course First Treatment Date [facility]23 [facility] Course Last Treatment Date 02/16/2023 9:15 AM [facility] Energy [facility]X [facility] Fraction Number 11 [facility] Plan Dose Delivered to Date 2200 [facility]Gy [facility] Plan Fractions Treated to Date 11 [facility] Plan ID L_Fronto_Temp [facility] Plan Prescribed Dose Per Fraction 200 [facility] Plan Primary Reference Point 1.A L_FrontoTemp [facility] Plan Total Fractions Prescribed 30 [facility] Plan Total Prescribed Dose 6000 cGy [facility] Reference Point ID 1.A L_Frontomp [facility] Radiology Study observation (narrative) [facility] RAD ONC ARIA FRACTION SUMMAR [facility] 02-08-2023 Course Elapsed Days [address] [facility] Course First Treatment Date 02/01/2023 12:46 PM [facility] Course ID C1 Meningioma [facility] Course Last Treatment Date 02/08/2023 10:18 AM [facility] Energy 6X [facility] Dose Delivered to Date 1000 cGy [facility] Plan Fractions Treated to Date 5 [facility] Plan ID L_Fronto_Temp [facility] Plan Prescribed Dose Per Fraction 200 cGy [facility] Plan Primary Reference Point 1.A L_FrontoTemp [facility] Plan Total Fractions Prescribed 30 [facility] Plan Total Prescribed Dose 6000 cGy [facility] Reference Point ID 1.A L_FrontoTemp [facility] Treatment Dates 30 [facility] Radiology Study observation (narrative) [facility] Absolute lymphocyte countOrd ered By: Monika Venegas on 01-18-2023 Lymphocytes Auto (Unsp spec) [#/Vol] 0.91 10*3/uL 0.83-4.51 [facility] Basophil percentageOrdered B y: Monika Venegas on 01-18-2023 Basophils/100 WBC (Bld) 0.3 % 0-1 [facility] Chloride [Moles/Vol] 98 mmol/L 98-107 [facility] Eosinophils/100 WBC (Bld) 1.5 % 0-5 [facility] Glucose [Mass/Vol] 113 mg/dL 74-106 [facility] Comment on above: Fasting Glucose resu lt from 100 to 125 mg/dL suggests IMPAIRED HOMEOSTASIS per A.D.A. criteria. Neutrophils (Bld) [#/Vol] 6.0 10*3/uL 2.0-7.7 [facility] Neutrophils/100 WBC (Bld) 76.8 % 47-70 [facility] Potassium [Moles/Vol] 4.4 mmol/L 3.5-5.1 [facility] Sodium [Moles/Vol] 132 mmol/L 136-145 [facility] WBC (Bld) [#/Vol] 7.8 10*3/uL 4.4-11.0 [facility] Blood erythrocytes count (nu mber/volume)Ordered By: Monika Venegas on 01-18-2023 RBC (Bld) [#/Vol] 3.40 10*6/uL 4.2-5.4 [facility] Blood hemoglobin measurement (mass/volume)Ordered By: Monika Venegas on 01-18-2023 Hemoglobin (Bld) [Mass/Vol] 10.4 g/dL 12.0-15.0 [facility] [facility] Blood lymphocytes/100 leukoc ytesOrdered By: Monika Venegas on 01-18-2023 Lymphocytes/100 WBC (Bld) 11.7 % 19-41 [facility] Blood monocytes/100 leukocyt esOrdered By: Monika Venegas on 01-18-2023 Monocytes/100 WBC (Bld) 9.1 % 0-10 [facility] Blood platelet mean volumeOr dered By: Monika Venegas on 01-18-2023 Platelet mean volume (Bld) [Entitic vol] 10.5 fL 6.2-12.0 [facility] Determination of erythrocyte mean corpuscular volume (MCV)Ordered By: Monika Venegas on 01-18-2023 MCV (RBC) [Entitic vol] 90.6 fL 81-[address] [facility] Hematocrit Auto (Bld) [Volum e fraction]Ordered By: Monika Venegas on 01-18-2023 Hematocrit (Bld) [Volume fraction] 30.8 % 37-47 [facility] Laboratory - Chemistry and C hemistry - challengeOrdered By: Monika Venegas on 01-18-2023 CO2 [Moles/Vol] 30.0 mmol/L 21.0-32.0 [facility] Urea nitrogen/Creatinine [Mass ratio] 22.3 mg/mg 10-20 [facility] Laboratory - Hematology and Cell countsOrdered By: Moniak Venegas on 01-18-2023 Erythrocyte distribution width (RBC) [Entitic vol] 49.6 fL 35.1-43.9 [facility] Erythrocyte distribution width (RBC) [Ratio] 15.1 % 11.6-14.6 [facility] Immature granulocytes/100 WBC (Bld) 0.600 % 0.0-0.9 [facility] Comment on above: IG% - Immature Granu locytes (promyelocytes, myelocytes and metamyelocytes) > 1% indicates that a LEFT SHIFT is Present. MCH (RBC) [Entitic mass] 30.6 pg 27.0-32.0 [facility] Nucleated RBC/100 WBC (Bld) [Ratio] 0 % 0-5 [facility] MCHC Auto (RBC) [Mass/Vol]Or dered By: Monika Venegas on 01-18-2023 MCHC (RBC) [Mass/Vol] 33.8 g/dL 32-36 [facility] No Panel InformationOrdered By: Monika Venegas on 01-18-2023 Estimated GFR (MDRD) Amer 101 mL/min >60 [facility] Comment on above: GFR Calc Estimated GFR (MDRD) Non-Af Amer 83 mL/min >60 [facility] Comment on above: Non- GFR Calc Platelets bldOrdered By: Monika Venegas on 01-18-2023 Platelets (Bld) [#/Vol] 245 10*3/uL 150-450 [facility] Serum or plasma calcium ena urement (mass/volume)Ordered By: Monika Venegas on 01-18-2023 Calcium [Mass/Vol] 9.4 mg/dL 8.5-10.1 [facility] Serum or plasma creatinine m easurement (mass/volume)Ordered By: Monika Venegas on 01-18-2023 Creatinine [Mass/Vol] 0.72 mg/dL 0.55-1.02 [facility] Comment on above: The validity of the calculated GFR & GFRAA in patients over 70 years has not been determined. Clinical correlation is essential. Serum or plasma urea nitroge n measurement (mass/volume)Ordered By: Monika Venegas on 01-18-2023 Urea nitrogen [Mass/Vol] 16 mg/dL 7-18 [facility] Thin prep Papanicolaou smear with manual screeningOrdered By: Monika Venegas on 01-18-2023 Thin prep Papanicolaou smear with manual screening 4 -15 [facility] Basophil percentageOrdered B y: Jo-Ann Arias on 12-27-2022 Chloride [Moles/Vol] 106 mmol/L 98-107 [facility] Glucose [Mass/Vol] 123 mg/dL 74-106 [facility] Comment on above: Fasting Glucose resu lt from 100 to 125 mg/dL suggests IMPAIRED HOMEOSTASIS per A.D.A. criteria. Potassium [Moles/Vol] 4.2 mmol/L 3.5-5.1 [facility] Sodium [Moles/Vol] 137 mmol/L 136-145 [facility] Laboratory - Chemistry and C hemistry - challengeOrdered By: Jo-Ann Arias on 12-27-2022 CO2 [Moles/Vol] 27.0 mmol/L 21.0-32.0 [facility] Magnesium [Mass/Vol] 1.7 mg/dL 1.6-2.6 [facility] Urea nitrogen/Creatinine [Mass ratio] 26.9 mg/mg 10-20 [facility] No Panel InformationOrdered By: Jo-Ann Arias on 12-27-2022 Estimated Creatinine Clearance Calc 39.75 ml/min [facility] Estimated GFR (MDRD) Amer 146 mL/min >60 [facility] Comment on above: GFR Calc Estimated GFR (MDRD) Non-Af Amer 121 mL/min >60 [facility] Comment on above: Non- GFR Calc Serum or plasma calcium ena urement (mass/volume)Ordered By: Jo-Ann Arias on 12-27-2022 Calcium [Mass/Vol] 8.8 mg/dL 8.5-10.1 [facility] Serum or plasma creatinine m easurement (mass/volume)Ordered By: Jo-Ann Arias on 12-27-2022 Creatinine [Mass/Vol] 0.52 mg/dL 0.55-1.02 [facility] Comment on above: The validity of the calculated GFR & GFRAA in patients over 70 years has not been determined. Clinical correlation is essential. Serum or plasma urea nitroge n measurement (mass/volume)Ordered By: Jo-Ann Arias on 12-27-2022 Urea nitrogen [Mass/Vol] 14 mg/dL 7-18 [facility] Thin prep Papanicolaou smear with manual screeningOrdered By: Jo-Ann Arias on 12-27-2022 Thin prep Papanicolaou smear with manual screening 4 5-15 [facility] Absolute lymphocyte countOrd ered By: Laura Jacobo on 12-24-2022 Lymphocytes Auto (Unsp spec) [#/Vol] 0.91 10*3/uL 0.83-4.51 [facility] Basophil percentageOrdered B y: Laura Jacobo on 12-24-2022 Basophils/100 WBC (Bld) 0.4 % 0-1 [facility] Bilirubin [Mass/Vol] 0.70 mg/dL 0.20-1.00 [facility] Comment on above: For patients on eltr ombopag therapy, use of Dimension [place] TBIL is not recommended. Chloride [Moles/Vol] 109 mmol/L 98-107 [facility] Eosinophils/100 WBC (Bld) 0.7 % 0-5 [facility] Glucose [Mass/Vol] 159 mg/dL 74-106 [facility] Comment on above: Fasting Glucose resu lt greater than or equal to 126 mg/dL suggests DIABETES MELLITUS per A.D.A. criteria. Neutrophils (Bld) [#/Vol] 3.9 10*3/uL 2.0-7.7 [facility] Neutrophils/100 WBC (Bld) 67.6 % 47-70 [facility] Potassium [Moles/Vol] 4.2 mmol/L 3.5-5.1 [facility] Protein [Mass/Vol] 5.6 g/dL 6.4-8.2 [facility] Sodium [Moles/Vol] 138 mmol/L 136-145 [facility] WBC (Bld) [#/Vol] 5.7 10*3/uL 4.4-11.0 [facility] Blood erythrocytes count (nu mber/volume)Ordered By: Laura Jacobo on 12-24-2022 RBC (Bld) [#/Vol] 3.29 10*6/uL 4.2-5.4 [facility] Blood hemoglobin measurement (mass/volume)Ordered By: Laura Jacobo on 12-24-2022 Hemoglobin (Bld) [Mass/Vol] 9.7 g/dL 12.0-15.0 [facility] Blood lymphocytes/100 leukoc ytesOrdered By: Laura Jacobo on 12-24-2022 Lymphocytes/100 WBC (Bld) 15.9 % 19-41 [facility] Blood monocytes/100 leukocyt esOrdered By: Laura Jacobo on 12-24-2022 Monocytes/100 WBC (Bld) 13.1 % 0-10 [facility] Blood platelet mean volumeOr dered By: Laura Jacobo on 12-24-2022 Platelet mean volume (Bld) [Entitic vol] 9.9 fL 6.2-12.0 [facility] Determination of erythrocyte mean corpuscular volume (MCV)Ordered By: Laura Jacobo on 12-24-2022 MCV (RBC) [Entitic vol] 91.5 fL 81-99 [facility] Hematocrit Auto (Bld) [Volum e fraction]Ordered By: Laura Jacobo on 12-24-2022 Hematocrit (Bld) [Volume fraction] 30.1 % 37-47 [facility] Laboratory - Chemistry and C hemistry - challengeOrdered By: Laura Jacobo on 12-24-2022 ALP [Catalytic activity/Vol] 121 U/L 45-117 [facility] ALT [Catalytic activity/Vol] 36 U/L 13-56 [facility] CO2 [Moles/Vol] 23.0 mmol/L 21.0-32.0 [facility] Globulin (S) [Mass/Vol] 2.7 g/dL 2.2-4.2 [facility] Urea nitrogen/Creatinine [Mass ratio] 29.0 mg/mg 10-20 [facility] Laboratory - Hematology and Cell countsOrdered By: Laura Jacobo on 12-24-2022 Erythrocyte distribution width (RBC) [Entitic vol] 50.5 fL 35.1-43.9 [facility] Erythrocyte distribution width (RBC) [Ratio] 15.2 % 11.6-14.6 [facility] Immature granulocytes/100 WBC (Bld) 2.300 % 0.0-0.9 [facility] Comment on above: IG% - Immature Granu locytes (promyelocytes, myelocytes and metamyelocytes) > 1% indicates that a LEFT SHIFT is Present. MCH (RBC) [Entitic mass] 29.5 pg 27.0-32.0 [facility] Nucleated RBC/100 WBC (Bld) [Ratio] 0 % 0-5 [facility] MCHC Auto (RBC) [Mass/Vol]Or dered By: Laura Jacobo on 12-24-2022 MCHC (RBC) [Mass/Vol] 32.2 g/dL 32-36 [facility] No Panel InformationOrdered By: Laura Jacobo on 12-24-2022 Estimated Creatinine Clearance Calc 39.97 ml/min [facility] Estimated GFR (MDRD) Amer 127 mL/min >60 [facility] Comment on above: GFR Calc Estimated GFR (MDRD) Non-Af Amer 105 mL/min >60 [facility] Comment on above: Non- GFR Calc Platelets bldOrdered By: Isabel Jacobo on 12-24-2022 Platelets (Bld) [#/Vol] 246 10*3/uL 150-450 [facility] Serum or plasma albumin ena urement (mass/volume)Ordered By: Laura Jacobo on 12-24-2022 Albumin [Mass/Vol] 2.9 g/dL 3.2-5.0 [facility] Serum or plasma albumin/glob ulin mass ratioOrdered By: Laura Jacobo on 12-24-2022 Albumin/Globulin [Mass ratio] 1.1 {ratio} 0.9-2.4 [facility] Serum or plasma calcium ena urement (mass/volume)Ordered By: Laura Jacobo on 12-24-2022 Calcium [Mass/Vol] 8.8 mg/dL 8.5-10.1 [facility] Serum or plasma creatinine m easurement (mass/volume)Ordered By: Laura Jacobo on 12-24-2022 Creatinine [Mass/Vol] 0.59 mg/dL 0.55-1.02 [facility] Comment on above: The validity of the calculated GFR & GFRAA in patients over 70 years has not been determined. Clinical correlation is essential. Serum or plasma urea nitroge n measurement (mass/volume)Ordered By: Laura Jacobo on 12-24-2022 Urea nitrogen [Mass/Vol] 17 mg/dL 7-18 [facility] Thin prep Papanicolaou smear with manual screeningOrdered By: Laura Jacobo on 12-24-2022 Thin prep Papanicolaou smear with manual screening 14 U/L 15-37 [facility] Thin prep Papanicolaou smear with manual screening 6 5-15 [facility] No Panel InformationOrdered By: Laura Jacobo on 12-23-2022 Thyroid Stimulating Hormone (TSH) 2.34 uIU/mL 0.358-3.74 [facility] Basophil percentageOrdered B y: Jo-Ann Arias on 12-20-2022 Sodium [Moles/Vol] 137 mmol/L 136-145 [facility] Basophil percentageOrdered B y: Jo-Ann Arias on 12-16-2022 Chloride [Moles/Vol] 103 mmol/L 98-107 [facility] Glucose [Mass/Vol] 127 mg/dL 74-106 [facility] Comment on above: Fasting Glucose resu lt greater than or equal to 126 mg/dL suggests DIABETES MELLITUS per A.D.A. criteria. Potassium [Moles/Vol] 4.2 mmol/L 3.5-5.1 [facility] Laboratory - Chemistry and C hemistry - challengeOrdered By: Jo-Ann Arias on 12-16-2022 CO2 [Moles/Vol] 27.0 mmol/L 21.0-32.0 [facility] Magnesium [Mass/Vol] 2.1 mg/dL 1.6-2.6 [facility] Urea nitrogen/Creatinine [Mass ratio] 13.3 mg/mg 10-20 [facility] No Panel InformationOrdered By: Jo-Ann Arias on 12-16-2022 Estimated Creatinine Clearance Calc 42.34 ml/min [facility] Estimated GFR (MDRD) Amer 144 mL/min >60 [facility] Comment on above: GFR Calc Estimated GFR (MDRD) Non-Af Amer 119 mL/min >60 [facility] Comment on above: Non- GFR Calc Serum or plasma calcium ena urement (mass/volume)Ordered By: Jo-Ann Arias on 12-16-2022 Calcium [Mass/Vol] 8.8 mg/dL 8.5-10.1 [facility] Serum or plasma creatinine m easurement (mass/volume)Ordered By: Jo-Ann Arias on 12-16-2022 Creatinine [Mass/Vol] 0.53 mg/dL 0.55-1.02 [facility] Comment on above: The validity of the calculated GFR & GFRAA in patients over 70 years has not been determined. Clinical correlation is essential. Serum or plasma urea nitroge n measurement (mass/volume)Ordered By: Jo-Ann Arias on 12-16-2022 Urea nitrogen [Mass/Vol] 7 mg/dL 7-18 [facility] Thin prep Papanicolaou smear with manual screeningOrdered By: Jo-Ann Arias on 12-16-2022 Thin prep Papanicolaou smear with manual screening 4 5-15 [facility] Blood hemoglobin measurement (mass/volume)Ordered By: Jo-Ann Arias on 12-13-2022 Hemoglobin (Bld) [Mass/Vol] 9.8 g/dL 12.0-15.0 [facility] Hematocrit Auto (Bld) [Volum e fraction]Ordered By: Jo-Ann Arias on 12-13-2022 Hematocrit (Bld) [Volume fraction] 29.1 % 37-47 [facility] Glucose Glucometer (BldC) [M ass/Vol]Ordered By: Jo-Ann Hugo on 12-10-2022 Glucose [Mass/Vol] 120 mg/dL 74-106 [facility] Comment on above: MANAGEMENT OF PATIEN T CARE PER NURSING PROTOCOL Basophil percentageOrdered B y: Jo-Ann Hsiehjenny on 12-07-2022 Basophil percentage 3.2 mg/dL 2.5-4.9 [facility] Bilirubin [Mass/Vol] 1.00 mg/dL 0.20-1.00 [facility] Comment on above: For patients on eltr ombopag therapy, use of Dimension [place] TBIL is not recommended. Protein [Mass/Vol] 4.8 g/dL 6.4-8.2 [facility] WBC (Bld) [#/Vol] 10.0 10*3/uL 4.4-11.0 [facility] Blood erythrocytes count (nu mber/volume)Ordered By: Jo-Ann Arias on 12-07-2022 RBC (Bld) [#/Vol] 3.34 10*6/uL 4.2-5.4 [facility] Blood platelet mean volumeOr dered By: Jo-Ann Hugo on 12-07-2022 Platelet mean volume (Bld) [Entitic vol] 9.2 fL 6.2-12.0 [facility] Clostridium difficile detect ion by polymerase chain reactionOrdered By: Jo-Ann Arias on 12-07-2022 C. difficile DNA SHAHBAZ+probe Ql (Unsp spec) [facility] Determination of erythrocyte mean corpuscular volume (MCV)Ordered By: Jo-Ann Arias on 12-07-2022 MCV (RBC) [Entitic vol] 88.9 fL 81-99 [facility] Laboratory - Chemistry and C hemistry - challengeOrdered By: Jo-Ann Arias on 12-07-2022 ALP [Catalytic activity/Vol] 74 U/L 45-117 [facility] ALT [Catalytic activity/Vol] 23 U/L 13-56 [facility] Globulin (S) [Mass/Vol] 3.0 g/dL 2.2-4.2 [facility] Laboratory - Hematology and Cell countsOrdered By: Jo-Ann Arias on 12-07-2022 Erythrocyte distribution width (RBC) [Entitic vol] 46.3 fL 35.1-43.9 [facility] Erythrocyte distribution width (RBC) [Ratio] 14.4 % 11.6-14.6 [facility] MCH (RBC) [Entitic mass] 30.2 pg 27.0-32.0 [facility] MCHC Auto (RBC) [Mass/Vol]Or dered By: Jo-Ann Hugo on 12-07-2022 MCHC (RBC) [Mass/Vol] 34.0 g/dL 32-36 [facility] Platelets bldOrdered By: Alyssa mejia Hugo on 12-07-2022 Platelets (Bld) [#/Vol] 229 10*3/uL 150-450 [facility] Serum or plasma albumin ena urement (mass/volume)Ordered By: Jo-Ann Hugo on 12-07-2022 Albumin [Mass/Vol] 1.8 g/dL 3.2-5.0 [facility] Serum or plasma albumin/glob ulin mass ratioOrdered By: Jo-Ann Hugo on 12-07-2022 Albumin/Globulin [Mass ratio] 0.6 {ratio} 0.9-2.4 [facility] Stool Clostridium difficile detectionOrdered By: Jo-Ann Hugo on 12-07-2022 C. difficile Ql (Stl) [facility] Thin prep Papanicolaou smear with manual screeningOrdered By: Jo-Ann Hugo on 12-07-2022 Thin prep Papanicolaou smear with manual screening 16 U/L 15-37 [facility] Absolute lymphocyte counton 11-09-2022 Lymphocytes Auto (Unsp spec) [#/Vol] 1.41 10*3/uL 0.83-4.51 [facility] Basophil percentageon 2022 Basophils/100 WBC (Bld) 0.4 % 0-1 [facility] Chloride [Moles/Vol] 100 mmol/L 98-107 [facility] Eosinophils/100 WBC (Bld) 1.0 % 0-5 [facility] Glucose [Mass/Vol] 108 mg/dL 74-106 [facility] Comment on above: Fasting Glucose resu lt from 100 to 125 mg/dL suggests IMPAIRED HOMEOSTASIS per A.D.A. criteria. Neutrophils (Bld) [#/Vol] 6.1 10*3/uL 2.0-7.7 [facility] Neutrophils/100 WBC (Bld) 72.5 % 47-70 [facility] Potassium [Moles/Vol] 3.8 mmol/L 3.5-5.1 [facility] Sodium [Moles/Vol] 133 mmol/L 136-145 [facility] WBC (Bld) [#/Vol] 8.3 10*3/uL 4.4-11.0 [facility] Blood erythrocytes count (nu mber/volume)on 11-09-2022 RBC (Bld) [#/Vol] 3.93 10*6/uL 4.2-5.4 [facility] Blood hemoglobin measurement (mass/volume)on 11-09-2022 Hemoglobin (Bld) [Mass/Vol] 12.2 g/dL 12.0-15.0 [facility] Blood lymphocytes/100 leukoc yteson 11-09-2022 Lymphocytes/100 WBC (Bld) 16.9 % 19-41 [facility] Blood monocytes/100 leukocyt eson 11-09-2022 Monocytes/100 WBC (Bld) 8.8 % 0-10 [facility] Blood platelet mean volumeon 11-09-2022 Platelet mean volume (Bld) [Entitic vol] 9.8 fL 6.2-12.0 [facility] Determination of erythrocyte mean corpuscular volume (MCV)on 11-09-2022 MCV (RBC) [Entitic vol] 88.3 fL 81-99 [facility] Hematocrit Auto (Bld) [Volum e fraction]on 11-09-2022 Hematocrit (Bld) [Volume fraction] 34.7 % 37-47 [facility] INR in Blood by Coagulation assayon 11-09-2022 INR Coag (Bld) [Relative time] 0.9 {INR} [facility] Laboratory - Chemistry and C hemistry - challengeon 11-09-2022 CO2 [Moles/Vol] 27.0 mmol/L 21.0-32.0 [facility] Urea nitrogen/Creatinine [Mass ratio] 21.3 mg/mg 10-20 [facility] Laboratory - Coagulationon 0 11-09-2022 aPTT Coag (Bld) [Time] 29.1 s 24.1-36.2 [facility] PT Coag (PPP) [Time] 12.5 s 11.7-14.9 [facility] Laboratory - Hematology and Cell countson 11-09-2022 Erythrocyte distribution width (RBC) [Entitic vol] 42.7 fL 35.1-43.9 [facility] Erythrocyte distribution width (RBC) [Ratio] 13.2 % 11.6-14.6 [facility] Immature granulocytes/100 WBC (Bld) 0.400 % 0.0-0.9 [facility] Comment on above: IG% - Immature Granu locytes (promyelocytes, myelocytes and metamyelocytes) > 1% indicates that a LEFT SHIFT is Present. MCH (RBC) [Entitic mass] 31.0 pg 27.0-32.0 [facility] Nucleated RBC/100 WBC (Bld) [Ratio] 0 % 0-5 [facility] MCHC Auto (RBC) [Mass/Vol]on 11-09-2022 MCHC (RBC) [Mass/Vol] 35.2 g/dL 32-36 [facility] No Panel Informationon 11-09 Estimated GFR (MDRD) Amer 103 mL/min >60 [facility] Comment on above: GFR Calc Estimated GFR (MDRD) Non-Af Amer 85 mL/min >60 [facility] Comment on above: Non- GFR Calc Platelets bldon 11-09-2022 Platelets (Bld) [#/Vol] 272 10*3/uL 150-450 [facility] Serum or plasma calcium ena urement (mass/volume)on 11-09-2022 Calcium [Mass/Vol] 9.3 mg/dL 8.5-10.1 [facility] Serum or plasma creatinine m easurement (mass/volume)on 11-09-2022 Creatinine [Mass/Vol] 0.70 mg/dL 0.55-1.02 [facility] Comment on above: The validity of the calculated GFR & GFRAA in patients over 70 years has not been determined. Clinical correlation is essential. Serum or plasma urea nitroge n measurement (mass/volume)on 11-09-2022 Urea nitrogen [Mass/Vol] 15 mg/dL 7-18 [facility] Thin prep Papanicolaou smear with manual screeningon 11-09-2022 Thin prep Papanicolaou smear with manual screening 6 5-15 [facility] EXTRA MICROon 10-09-2022 [facility] SCREEN: MRSA/MSSAOrdered By: Patrick Galicia on 10-09-2022 Interpretation and review of laboratory results Normal [facility] Methicillin Resistant S. Aureus By Pcr Negative Negative [facility] Staphylococcus Aureus By Pcr Negative Negative [facility] This test was perfor med using a [...] by the Clinical Microbiology Laboratory at [facility]. It has not been cleared or approved by the FDA.The laboratory is regulated under CLIA as qualified to perform high-complexity testing. This test is used for clinical purposes. It should not be regarded as investigational or for research. [facility] CBC AND ELECTRONIC DIFFon Basophils (Bld) [#/Vol] 0.05 10*3/uL 0.00 - 0.15 K/uL [facility] Basophils/100 WBC (Bld) 0.5 % [facility] Differential cell count method Nom (Bld) Electronic Differential [facility] Eosinophils (Bld) [#/Vol] 0.08 10*3/uL 0.00 - 0.42 K/uL [facility] Eosinophils/100 WBC (Bld) 0.8 % [facility] Erythrocyte distribution width (RBC) [Ratio] 12.9 % 10.8 - 14.9 % [facility] Hematocrit (Bld) [Volume fraction] 38.0 % 34.9 - 44.3 % [facility] Hemoglobin (Bld) [Mass/Vol] 13.0 g/dL 11.4 - 15.2 g/dL [facility] Immature granulocytes (Bld) [#/Vol] 0.05 10*3/uL NINF - 0.08 K/uL [facility] Immature granulocytes/100 WBC (Bld) 0.5 % [facility] Interpretation and review of laboratory results Abnormal [facility] Lymphocytes (Bld) [#/Vol] 1.34 10*3/uL 1.16 - 3.51 K/uL [facility] Lymphocytes/100 WBC (Bld) 13.4 % [facility] MCH (RBC) [Entitic mass] 29.5 pg 25.9 - 33.9 pg [facility] MCHC (RBC) [Mass/Vol] 34.2 g/dL 31.4 - 35.9 g/dL [facility] MCV (RBC) [Entitic vol] 86.2 fL 79.6 - 97.7 fL [facility] Monocytes (Bld) [#/Vol] 0.76 10*3/uL 0.22 - 0.87 K/uL [facility] Monocytes/100 WBC (Bld) 7.6 % [facility] Neutrophils (Bld) [#/Vol] 7.74 10*3/uL High 1.64 - 7.28 K/uL [facility] Nucleated RBC/100 WBC (Bld) [Ratio] 0.0 % [facility] Platelet mean volume (Bld) [Entitic vol] 10.3 fL 8.5 - 12.2 fL [facility] Platelets (Bld) [#/Vol] 280 10*3/uL 150 - 393 K/uL [facility] RBC (Bld) [#/Vol] 4.41 10*6/uL [facility] Segmented neutrophils/100 WBC (Bld) 77.2 % [facility] WBC (Bld) [#/Vol] 10.02 10*3/uL 3.99 - 11 .19 K/uL [facility] CHEM 7 (LYTES,BUN,CREA,GLUC) on 10-08-2022 Anion gap [Moles/Vol] 11 mmol/L 7 - 17 mmol/L [facility] Chloride [Moles/Vol] 93 mmol/L Low 98 - 10 8 mmol/L [facility] CO2 [Moles/Vol] 28 mmol/L 21 - 31 mmol/L [facility] Creatinine [Mass/Vol] 0.72 mg/dL 0.50 - 1.20 mg/dL [facility] GFR/1.73 sq M.predicted CKD-EPI (S/P/Bld) [Vol rate/Area] 86 - PINF [facility] Comment on above: Reported eGFR is bas ed on the CKD-EPI 2020 equation using creatinine, age, and sex. Glucose [Mass/Vol] 106 mg/dL High 70 - 99 mg/dL [facility] Interpretation and review of laboratory results Abnormal [facility] Osmolality Calc [Osmolality] 272 Low [facility] Potassium [Moles/Vol] 4.3 mmol/L 3.5 - 5.0 mmol/L [facility] Sodium [Moles/Vol] 128 mmol/L Low 135 - 145 mmol/L [facility] Urea nitrogen [Mass/Vol] 15 mg/dL 7 - 25 mg/dL [facility] Urea nitrogen/Creatinine [Mass ratio] 21 mg/mg [facility] [facility] EXTRA LIGHT BLUE TOP DOUBLE SPINon 10-08-2022 Dummy LRR - Route to Double Spin Received [facility] PREPARE TO TRANSFUSE OR RED BLOOD CELLSon 10-08-2022 [facility] PROTIME-INRon 10-08-2022 INR Coag (Bld) [Relative time] 1.0 {INR} 0.9 - 1.1 [facility] Interpretation and review of laboratory results Normal [facility] PT Coag (PPP) [Time] 13.2 s [facility] PTT W/MIXING STUDY PERF ONLY Ordered By: Adia Ross on 10-08-2022 aPTT Coag (PPP) [Time] 28.7 s [facility] PTT Mixing Study With Normal Plasma Not Indicated [facility] TYPE AND SCREEN - PREADMISSI ONon 10-08-2022 ABO/RH(D) TYPE AB NEG [facility] URINALYSIS REFLEX TO CULTURE PERFORMABLEOrdered By: Paula Dixon on 10-08-2022 Appearance (U) [facility] Bacteria LM Ql (Urine sed) TRACE Abnormal ABSENT [facility] Color (U) Yellow Yellow [facility] Epithelial cells.squamous LM Ql (Urine sed) 1/hpf = 1+ 1/hpf = 1+, 2-5/hpf = 2+, 0/hpf = 0+, ABSENT [facility] Glucose Test strip (U) [Mass/Vol] Negative Negative [facility] Interpretation and review of laboratory results Abnormal [facility] Ketones (U) [Mass/Vol] Negative Negative [facility] Leukocyte esterase Test strip Ql (U) Trace Abnormal Negative [facility] Nitrite Ql (U) Negative Negative [facility] pH (U) 7.0 [pH] 5.0 - 7.0 [facility] Protein (U) [Mass/Vol] Negative Negative [facility] RBC (U) [#/Vol] Negative Negative [facility] RBC LM.HPF (Urine sed) [#/Area] 0-2 [facility] Specific gravity (U) [Rel density] 1.015 1.001 - PINF [facility] Urobilinogen (U) [Mass/Vol] 0.2 E.U./dL 0.2 E.U/dL, 1.0 E.U/dL [facility] WBC LM.HPF (Urine sed) [#/Area] 0-5 [facility] XR Chest PA and Lateralon IMPRESSION: No [...] comparison. 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 Pleural Spaces: No pleural effusion. No pneumothorax. Mediastinum and Tammie: Normal Cardiac silhouette and great vessels: Normal heart size. Atherosclerotic calcifications. Chest Wall: Normal IMPRESSION IMPRESSION: No acute cardiopulmonary disease [facility] Radiology [facility]narrative[facility] PA and LateralOrder ed By: Abraham Bahena on 10-08-2022 [facility] Work Phone: CT Cheston 10-06-2022 IMPRESSION: Agree [...] spine. CT abdomen dictated separately. RADIOLOGY Ernie Rogel, DO - 10/06/2022 EXAM: CT CHEST (INTERPRETATION [...] separately. IMPRESSION IMPRESSION: Agree with outside interpretation. [facility] CT ChestOrdered By: Ernie Coburn on 10-06-2022 [facility] Work Phone: CT Abdomen and Pelvison 05- Outside Imaging Stud y for Support of Clinical Care This study was sent from an outside facility to [facility] for support of clinical care of the patient within the [facility]. [facility] CT Cheston 10-04-2022 Radiology Study observation (narrative) [facility] Basophil percentageOrdered B y: Dr. Venegas on 09-21-2022 Chloride [Moles/Vol] 101 mmol/L 98-107 [facility] Cholesterol [Mass/Vol] 164 mg/dL <200 [facility] Comment on above: <200 mg/dL Desirable 200-240 mg/dL Borderline >240 mg/dL High Risk Glucose [Mass/Vol] 107 mg/dL 74-106 [facility] Comment on above: Fasting Glucose resu lt from 100 to 125 mg/dL suggests IMPAIRED HOMEOSTASIS per A.D.A. criteria. Potassium [Moles/Vol] 3.7 mmol/L 3.5-5.1 [facility] Sodium [Moles/Vol] 132 mmol/L 136-145 [facility] Triglyceride [Mass/Vol] 97 mg/dL <199 [facility] Comment on above: The drugs N-Acetylcy steine and Metamizole may falsely depress this assay.Serum Triglycerides Reference Interval Normal <150 mg/dL Borderline high 150 - 199 mg/dL High 200 - 499 mg/dL Very High > or = 500 mg/dL Laboratory - Chemistry and C hemistry - challengeOrdered By: Dr. Venegas on 09-21-2022 ALT [Catalytic activity/Vol] 28 U/L 13-56 [facility] CO2 [Moles/Vol] 26.0 mmol/L 21.0-32.0 [facility] Urea nitrogen/Creatinine [Mass ratio] 19.0 mg/mg 10-20 [facility] No Panel InformationOrdered By: Dr. Venegas on 09-21-2022 Estimated GFR (MDRD) Amer 98 mL/min >60 [facility] Comment on above: GFR Calc Estimated GFR (MDRD) Non-Af Amer 81 mL/min >60 [facility] Comment on above: Non- GFR Calc Urine Microalbumin/Creatinine Ratio 21.9 mg/g CRE <30 [facility] Serum or plasma calcium ena urement (mass/volume)Ordered By: Dr. Venegas on 09-21-2022 Calcium [Mass/Vol] 9.3 mg/dL 8.5-10.1 [facility] Serum or plasma cholesterol in HDL measurement (mass/volume)Ordered By: Dr. Venegas on 09-21-2022 Cholesterol in HDL [Mass/Vol] 63 mg/dL >40 [facility] Comment on above: The drugs N-Acetylcy steine and Metamizole may falsely depress this assay. Reference Range HDL <40 mg/dL Low HDL Cholesterol HDL >or= 60 mg/dL High HDL Cholesterol Serum or plasma cholesterol in VLDL measurement (mass/volume)Ordered By: Dr. Venegas on 09-21-2022 Cholesterol in VLDL [Mass/Vol] 19 mg/dL 5-40 [facility] Serum or plasma creatinine m easurement (mass/volume)Ordered By: Dr. Venegas on 09-21-2022 Creatinine [Mass/Vol] 0.74 mg/dL 0.55-1.02 [facility] Comment on above: The validity of the calculated GFR & GFRAA in patients over 70 years has not been determined. Clinical correlation is essential. Serum or plasma low density lipoprotein (LDL) cholesterol measurement (mass/volume)Ordered By: Dr. Venegas on 09-21-2022 Cholesterol in LDL [Mass/Vol] 82 mg/dL 0-130 [facility] Serum or plasma urea nitroge n measurement (mass/volume)Ordered By: Dr. Venegas on 09-21-2022 Urea nitrogen [Mass/Vol] 14 mg/dL 7-18 [facility] Thin prep Papanicolaou smear with manual screeningOrdered By: Dr. Venegas on 09-21-2022 Thin prep Papanicolaou smear with manual screening 18 U/L 15-37 [facility] Thin prep Papanicolaou smear with manual screening 5 5-15 [facility] Thin prep Papanicolaou smear with manual screening 7.6 mg/L NO RANGE EST. [facility] Urine creatinine measurement (mass/volume)Ordered By: Dr. Venegas on 09-21-2022 Creatinine (U) [Mass/Vol] 34.60 mg/dL NO RANGE EST. [facility] Basophil percentageon 2021 Chloride [Moles/Vol] 101 mmol/L 98-107 [facility] Work Phone: Cholesterol [Mass/Vol] 155 mg/dL <200 [facility] Work Phone: Comment on above: <200 mg/dL Desirable 200-240 mg/dL Borderline >240 mg/dL High Risk Glucose [Mass/Vol] 152 mg/dL 74-106 [facility] Work Phone: Comment on above: Fasting Glucose resu lt greater than or equal to 126 mg/dL suggests DIABETES MELLITUS per A.D.A. criteria. Potassium [Moles/Vol] 3.7 mmol/L 3.5-5.1 [facility] Work Phone: Sodium [Moles/Vol] 135 mmol/L 136-145 [facility] Work Phone: Triglyceride [Mass/Vol] 180 mg/dL <199 [facility] Work Phone: [phone] Comment on above: The drugs N-Acetylcy steine and Metamizole may falsely depress this assay.Serum Triglycerides Reference Interval Normal <150 mg/dL Borderline high 150 - 199 mg/dL High 200 - 499 mg/dL Very High > or = 500 mg/dL Laboratory - Chemistry and C hemistry - challengeon 03-23-2022 ALT [Catalytic activity/Vol] 26 U/L 13-56 [facility] Work Phone: CO2 [Moles/Vol] 27.0 mmol/L 21.0-32.0 [facility] Work Phone: Urea nitrogen/Creatinine [Mass ratio] 23.6 mg/mg 10-20 [facility] Work Phone: No Panel Informationon 03-23 Estimated GFR (MDRD) Amer 79 mL/min >60 [facility] Work Phone: Comment on above: GFR Calc Estimated GFR (MDRD) Non-Af Amer 65 mL/min >60 [facility] Work Phone: [phone] Comment on above: Non- GFR Calc Serum or plasma calcium ena urement (mass/volume)on 03-23-2022 Calcium [Mass/Vol] 9.4 mg/dL 8.5-10.1 [facility] Work Phone: Serum or plasma cholesterol in HDL measurement (mass/volume)on 03-23-2022 Cholesterol in HDL [Mass/Vol] 53 mg/dL >40 [facility] Work Phone: Comment on above: The drugs N-Acetylcy steine and Metamizole may falsely depress this assay. Reference Range HDL <40 mg/dL Low HDL Cholesterol HDL >or= 60 mg/dL High HDL Cholesterol Serum or plasma cholesterol in VLDL measurement (mass/volume)on 03-23-2022 Cholesterol in VLDL [Mass/Vol] 36 mg/dL 5-40 [facility] Work Phone: Serum or plasma creatinine m easurement (mass/volume)on 03-23-2022 Creatinine [Mass/Vol] 0.89 mg/dL 0.55-1.02 [facility] Work Phone: Comment on above: The validity of the calculated GFR & GFRAA in patients over 70 years has not been determined. Clinical correlation is essential. Serum or plasma low density lipoprotein (LDL) cholesterol measurement (mass/volume)on 03-23-2022 Cholesterol in LDL [Mass/Vol] 66 mg/dL 0-130 [facility] Work Phone: Serum or plasma urea nitroge n measurement (mass/volume)on 03-23-2022 Urea nitrogen [Mass/Vol] 21 mg/dL -18 [facility] Work Phone: Thin prep Papanicolaou smear with manual screeningon 03-23-2022 Thin prep Papanicolaou smear with manual screening 17 U/L 15-37 [facility] Work Phone: Thin prep Papanicolaou smear with manual screening 7 5-15 [facility] Work Phone: Vital Signs Date Time Vital Sign Value Performing Clinician Facility 11-12-2024 11:54-0400 Body height 142.2 cm Ignacio De La Garza Sr., MD, PhD Work Phone: [facility] 11-12-2024 11:54-0400 Body mass index (BMI) [Ratio] 24.89 kg/m2 Ignacio De La Garza Sr., MD, PhD Work Phone: [facility] 11-12-2024 11:54-0400 Body temperature 97.9 [degF] Ignacio De La Garza Sr., MD, PhD Work Phone: [facility] 11-12-2024 11:54-0400 Body weight 50.35 kg Ignacio De La Garza Sr., MD, PhD Work Phone: [facility] 11-12-2024 11:54-0400 Diastolic blood pressure 66 mm[Hg] Ignacio De La Garza Sr., MD, PhD Work Phone: [facility] 11-12-2024 11:54-0400 Heart rate 59 /min Ignacio De La Garza Sr., MD, PhD Work Phone: [facility] 11-12-2024 11:54-0400 Respiratory rate 18 /min Ignacio De La Garza Sr., MD, PhD Work Phone: [facility] 11-12-2024 11:54-0400 SaO2% (BldA) [Mass fraction] 98 % Ignacio De La Garza Sr., MD, PhD Work Phone: [facility] 11-12-2024 11:54-0400 Systolic blood pressure 150 mm[Hg] Ignacio De La Garza Sr., MD, PhD Work Phone: [facility] 09-27-2024 13:05-0400 Diastolic blood pressure 64 mm[Hg] Dr. Monika Venegas MD Work Phone: [facility] 09-27-2024 13:05-0400 Heart rate 51 /min Dr. Monika Venegas MD Work Phone: [facility] 09-27-2024 13:05-0400 Respiratory rate 16 /min Dr. Monika Venegas MD Work Phone: [facility] 09-27-2024 13:05-0400 SaO2% (BldA) [Mass fraction] 98 % Dr. Monika Venegas MD Work Phone: [facility] 09-27-2024 13:05-0400 Systolic blood pressure 180 mm[Hg] Dr. Monika Venegas MD Work Phone: [facility] 09-27-2024 09:20-0400 Body height 142.[address] Monika Venegas MD Work Phone: [facility] 09-27-2024 09:20-0400 Body mass index (BMI) [Ratio] 24.8 kg/m2 Dr. Monika Venegas MD Work Phone: [facility] 09-27-2024 09:20-0400 Body temperature 98 [degF] Dr. Monika Venegas MD Work Phone: [facility] 09-27-2024 09:20-0400 Body weight 50.[address] Monika Venegas MD Work Phone: [facility] 07-11-2024 11:09-0500 Body mass index (BMI) [Ratio] 24.98 kg/m2 Andrew Bueno MD Work Phone: [facility] 07-11-2024 11:09-0500 Body temperature 97.5 [degF] Andrew Bueno MD Work Phone: [facility] 07-11-2024 11:09-0500 Body weight 50.53 kg Andrew Bueno MD Work Phone: [facility] 07-11-2024 11:09-0500 Diastolic blood pressure 70 mm[Hg] Andrew Bueno MD Work Phone: [facility] Comment on above: manual 07-11-2024 11:09-0500 Heart rate 57 /min Andrew Bueno MD Work Phone: [facility] 07-11-2024 11:09-0500 Respiratory rate 16 /min Andrew Bueno MD Work Phone: [facility] 07-11-2024 11:09-0500 SaO2% (BldA) [Mass fraction] 97 % Andrew Bueno MD Work Phone: [facility] 07-11-2024 11:09-0500 Systolic blood pressure 162 mm[Hg] Andrew Bueno MD Work Phone: [facility] Comment on above: manual 03-14-2024 15:48-0400 Body mass index (BMI) [Ratio] 25.18 kg/m2 Andrew Bueno MD Work Phone: [phone] [place] [address] 03-14-2024 15:48-0400 Body temperature 97.5 [degF] Andrew Bueno MD Work Phone: [facility] 03-14-2024 15:48-0400 Body weight 50.94 kg Andrew Bueno MD Work Phone: [facility] 03-14-2024 15:48-0400 Diastolic blood pressure 68 mm[Hg] Andrew Bueno MD Work Phone: [facility] 03-14-2024 15:48-0400 Heart rate 56 /min Andrew Bueno MD Work Phone: [facility] 03-14-2024 15:48-0400 Respiratory rate 16 /min Andrew Bueno MD Work Phone: [facility] 03-14-2024 15:48-0400 SaO2% (BldA) [Mass fraction] 98 % Andrew Bueno MD Work Phone: [facility] 03-14-2024 15:48-0400 Systolic blood pressure 140 mm[Hg] Andrew Bueno MD Work Phone: [facility] 03-14-2024 13:56-0400 Diastolic blood pressure 87 mm[Hg] Andrew Bueno MD Work Phone: [facility] 03-14-2024 13:56-0400 Heart rate 55 /min Andrew Bueno MD Work Phone: [facility] 03-14-2024 13:56-0400 Systolic blood pressure 220 mm[Hg] Andrew Bueno MD Work Phone: [facility] 11-29-2023 15:40-0400 Body mass index (BMI) [Ratio] 26.21 kg/m2 Andrew Bueno MD Work Phone: [phone] [place] [address] 11-29-2023 15:40-0400 Body temperature 97.39 [degF] Andrew Bueno MD Work Phone: [facility] 11-29-2023 15:40-0400 Body weight 53.02 kg Andrew Bueno MD Work Phone: [facility] 11-29-2023 15:40-0400 Diastolic blood pressure 60 mm[Hg] Andrew Bueno MD Work Phone: [facility] 11-29-2023 15:40-0400 Heart rate 56 /min Andrew Bueno MD Work Phone: [facility] 11-29-2023 15:40-0400 Respiratory rate 16 /min Andrew Bueno MD Work Phone: [facility] 11-29-2023 15:40-0400 SaO2% (BldA) [Mass fraction] 98 % Andrew Bueno MD Work Phone: [facility] 11-29-2023 15:40-0400 Systolic blood pressure 128 mm[Hg] Andrew Bueno MD Work Phone: [facility] 11-29-2023 13:38-0400 Diastolic blood pressure 77 mm[Hg] Andrew Bueno MD Work Phone: [facility] 11-29-2023 13:38-0400 Heart rate 58 /min Andrew Bueno MD Work Phone: [facility] 11-29-2023 13:38-0400 Systolic blood pressure 199 mm[Hg] Andrew Bueno MD Work Phone: [facility] 08-18-2023 13:25-0400 Diastolic blood pressure 92 mm[Hg] Kristine Salts SALES ACCOUNT MANAGER[employer] Work Phone: [facility] 08-18-2023 13:25-0400 Heart rate 66 /min Kristine Salts SALES ACCOUNT MANAGER-[employer] INSPECTOR AND P[employer]ER Work Phone: [facility] 08-18-2023 13:25-0400 Systolic blood pressure 202 mm[Hg] Kristine Salts SALES ACCOUNT MANAGER-HOSE INSPECTOR AND PATCHER Work Phone: [facility] 07-19-2023 13:50-0500 Body height 142.[address] Monika Venegas Work Phone: [facility] 07-19-2023 13:49-0500 Body mass index (BMI) [Ratio] 26.4 kg/m2 Dr. Monika Venegas Work Phone: [facility] 07-19-2023 13:49-0500 Body weight 53.[address] Monika Venegas Work Phone: [facility] 07-19-2023 13:49-0500 Diastolic blood pressure 70 mm[Hg] Dr. Monika Venegas Work Phone: [facility] 07-19-2023 13:49-0500 Heart rate 63 /min Dr. Monika Venegas Work Phone: [facility] 07-19-2023 13:49-0500 Respiratory rate 18 /min Dr. Monika Venegas Work Phone: [facility] 07-19-2023 13:49-0500 SaO2% (BldA) [Mass fraction] 99 % Dr. Monika Venegas Work Phone: [facility] 07-19-2023 13:49-0500 Systolic blood pressure 179 mm[Hg] Dr. Monika Venegas Work Phone: [facility] 05-19-2023 14:01-0500 Body mass index (BMI) [Ratio] 27.89 kg/m2 Andrew Bueno MD Work Phone: [facility] 05-19-2023 14:01-0500 Body temperature 97.2 [degF] Andrew Bueno MD Work Phone: [facility] 05-19-2023 14:01-0500 Body weight 56.43 kg Andrew Bueno MD Work Phone: [facility] 05-19-2023 14:01-0500 Diastolic blood pressure 70 mm[Hg] Andrew Bueno MD Work Phone: [facility] 05-19-2023 14:01-0500 Heart rate 68 /min Andrew Bueno MD Work Phone: [facility] 05-19-2023 14:01-0500 Respiratory rate 16 /min Andrew Bueno MD Work Phone: [facility] 05-19-2023 14:01-0500 SaO2% (BldA) [Mass fraction] 98 % Andrew Bueno MD Work Phone: [facility] 05-19-2023 14:01-0500 Systolic blood pressure 142 mm[Hg] Andrew Bueno MD Work Phone: [facility] 03-15-2023 10:29-0400 Body mass index (BMI) [Ratio] 26.9 kg/m2 Andrew Bueno MD Work Phone: [facility] 03-15-2023 10:29-0400 Body temperature 97.9 [degF] Andrew Bueno MD Work Phone: [facility] 03-15-2023 10:29-0400 Body weight 54.43 kg Andrew Bueno MD Work Phone: [facility] 03-15-2023 10:29-0400 Diastolic blood pressure 68 mm[Hg] Andrew Bueno MD Work Phone: [facility] 03-15-2023 10:29-0400 Heart rate 62 /min Andrew Bueno MD Work Phone: [facility] 03-15-2023 10:29-0400 Respiratory rate 16 /min Andrew Bueno MD Work Phone: [facility] 03-15-2023 10:29-0400 SaO2% (BldA) [Mass fraction] 97 % Andrew Bueno MD Work Phone: [facility] 03-15-2023 10:29-0400 Systolic blood pressure 160 mm[Hg] Andrew Bueno MD Work Phone: [facility] 03-08-2023 10:08-0400 Body mass index (BMI) [Ratio] 27.06 kg/m2 Ameya Singh MD Work Phone: [facility] 03-08-2023 10:08-0400 Body temperature 97.9 [degF] Ameya Singh MD Work Phone: [facility] 03-08-2023 10:08-0400 Body weight 54.75 kg Ameya Singh MD Work Phone: [facility] 03-08-2023 10:08-0400 Diastolic blood pressure 66 mm[Hg] Ameya Singh MD Work Phone: [facility] 03-08-2023 10:08-0400 Heart rate 70 /min Ameya Singh MD Work Phone: [facility] 03-08-2023 10:08-0400 Respiratory rate 16 /min Ameya Singh MD Work Phone: [facility] 03-08-2023 10:08-0400 SaO2% (BldA) [Mass fraction] 98 % Ameya Singh MD Work Phone: [facility] 03-08-2023 10:08-0400 Systolic blood pressure 152 mm[Hg] Ameya Singh MD Work Phone: [facility] 03-01-2023 09:59-0400 Body mass index (BMI) [Ratio] 27.15 kg/m2 Andrew Bueno MD Work Phone: [facility] 03-01-2023 09:59-0400 Body temperature 97.59 [degF] Andrew Bueno MD Work Phone: [facility] 03-01-2023 09:59-0400 Body weight 54.93 kg Andrew Bueno MD Work Phone: [facility] 03-01-2023 09:59-0400 Diastolic blood pressure 62 mm[Hg] Andrew Bueno MD Work Phone: [facility] 03-01-2023 09:59-0400 Heart rate 69 /min Andrew Bueno MD Work Phone: [facility] 03-01-2023 09:59-0400 Respiratory rate 16 /min Andrew Bueno MD Work Phone: [facility] 03-01-2023 09:59-0400 SaO2% (BldA) [Mass fraction] 99 % Andrew Bueno MD Work Phone: [facility] 03-01-2023 09:59-0400 Systolic blood pressure 118 mm[Hg] Andrew Bueno MD Work Phone: [facility] 02-15-2023 09:35-0400 Body mass index (BMI) [Ratio] 26.72 kg/m2 Andrew Bueno MD Work Phone: [facility] 02-15-2023 09:35-0400 Body temperature 97.81 [degF] Andrew Bueno MD Work Phone: [facility] 02-15-2023 09:35-0400 Body weight 54.07 kg Andrew Bueno MD Work Phone: [facility] 02-15-2023 09:35-0400 Diastolic blood pressure 62 mm[Hg] Andrew Bueno MD Work Phone: [facility] 02-15-2023 09:35-0400 Heart rate 66 /min Andrew Bueno MD Work Phone: [facility] 02-15-2023 09:35-0400 Respiratory rate 16 /min Andrew Bueno MD Work Phone: [facility] 02-15-2023 09:35-0400 SaO2% (BldA) [Mass fraction] 97 % Andrew Bueno MD Work Phone: [facility] 02-15-2023 09:35-0400 Systolic blood pressure 148 mm[Hg] Andrew Bueno MD Work Phone: [facility] 02-08-2023 10:31-0400 Body mass index (BMI) [Ratio] 27.33 kg/m2 Andrew Bueno MD Work Phone: [facility] 02-08-2023 10:31-0400 Body temperature 97.7 [degF] Andrew Bueno MD Work Phone: 9(675)380-613521 [address] 02-08-2023 10:31-0400 Body weight 55.29 kg Andrew Bueno MD Work Phone: 0(731)282-991214 [place] [address] 02-08-2023 10:31-0400 Diastolic blood pressure 72 mm[Hg] Andrew Bueno MD Work Phone: 8(513)966-579814 [place] [address] 02-08-2023 10:31-0400 Heart rate 69 /min Andrew Bueno MD Work Phone: 3(378)966-133314 [place] [address] 02-08-2023 10:31-0400 Respiratory rate 16 /min Andrew Bueno MD Work Phone: 0(317)547-462821 [address] 02-08-2023 10:31-0400 SaO2% (BldA) [Mass fraction] 98 % Andrew Bueno MD Work Phone: [phone] [address] 02-08-2023 10:31-0400 Systolic blood pressure 150 mm[Hg] Andrew Bueno MD Work Phone: [facility] 01-19-2023 10:59-0400 Body mass index (BMI) [Ratio] 26.3 kg/m2 Andrew Bueno MD Work Phone: [facility] 01-19-2023 10:59-0400 Body temperature 98.1 [degF] Andrew Bueno MD Work Phone: [facility] 01-19-2023 10:59-0400 Body weight 53.21 kg Andrew Bueno MD Work Phone: [phone](963)[phone] [address] 01-19-2023 10:59-0400 Diastolic blood pressure 68 mm[Hg] Andrew Bueno MD Work Phone: [facility] 01-19-2023 10:59-0400 Heart rate 65 /min Andrew Bueno MD Work Phone: [facility] 01-19-2023 10:59-0400 Respiratory rate 16 /min Andrew Bueno MD Work Phone: [facility] 01-19-2023 10:59-0400 SaO2% (BldA) [Mass fraction] 98 % Andrew Bueno MD Work Phone: [facility] 01-19-2023 10:59-0400 Systolic blood pressure 154 mm[Hg] Andrew Bueon MD Work Phone: [facility] 01-13-2023 13:14-0400 Body height 142.[address] Monika Venegas Work Phone: [facility] 01-13-2023 13:14-0400 Body mass index (BMI) [Ratio] 26.2 kg/m2 Dr. Monika Venegas Work Phone: [facility] 01-13-2023 13:14-0400 Body weight 53.[address] Monika Venegas Work Phone: [facility] 01-13-2023 13:14-0400 Diastolic blood pressure 67 mm[Hg] Dr. Monika Venegas Work Phone: [facility] 01-13-2023 13:14-0400 Heart rate 70 /min Dr. Monika Venegas Work Phone: [facility] 01-13-2023 13:14-0400 SaO2% (BldA) [Mass fraction] 99 % Dr. Monika Venegas Work Phone: [facility] 01-13-2023 13:14-0400 Systolic blood pressure 130 mm[Hg] Dr. Monika Venegas Work Phone: 7(530)180-405565 [place] [address] 01-01-2023 07:46-0400 Body temperature 97.6 [degF] Dr. Monika Venegas Work Phone: [facility] 01-01-2023 07:46-0400 Diastolic blood pressure 43 mm[Hg] Dr. Monika Venegas Work Phone: 2(858)846-960965 [place] [address] 01-01-2023 07:46-0400 Heart rate 71 /min Dr. Monika Venegas Work Phone: 0(182)824-418312 [place] [address] 01-01-2023 07:46-0400 Respiratory rate 16 /min Dr. Monika Venegas Work Phone: 9(180)423-637312 [place] [address] 01-01-2023 07:46-0400 SaO2% (BldA) [Mass fraction] 97 % Dr. Monika Venegas Work Phone: 0(324)494-367812 [place] [address] 01-01-2023 07:46-0400 Systolic blood pressure 118 mm[Hg] Dr. Monika Venegas Work Phone: 3(242)570-796112 [place] [address] 12-31-2022 20:30-0400 Body mass index (BMI) [Ratio] 27.1 kg/m2 Dr. Monika Venegas Work Phone: 9(082)881-928612 [place] [address] 12-31-2022 05:15-04[address] Body weight [address] Monika Venegas Work Phone: 5(415)915-673512 [place] [address] 12-24-2022 15:11-0400 Body weight 55.[address] Monika Venegas Work Phone: 4(418)944-337965 [place] [address] 12-24-2022 13:54-0400 Body temperature 97.7 [degF] Dr. Monika Venegas Work Phone: 5(581)661-272985 [address] 12-24-2022 13:54-0400 Diastolic blood pressure 52 mm[Hg] Dr. Monika Venegas Work Phone: 5(382)568-658065 [place] [address] 12-24-2022 13:54-0400 Heart rate 79 /min Dr. Monika Venegas Work Phone: 5(549)574-148865 [place] [address] 12-24-2022 13:54-0400 Respiratory rate 18 /min Dr. Monika Venegas Work Phone: [facility] 12-24-2022 13:54-0400 SaO2% (BldA) [Mass fraction] 95 % Dr. Monika Venegas Work Phone: [facility] 12-24-2022 13:54-0400 Systolic blood pressure 115 mm[Hg] Dr. Monika Venegas Work Phone: 1(313)339-458965 [place] [address] 12-23-2022 18:15-0400 Body mass index (BMI) [Ratio] 27.4 kg/m2 Dr. Monika Venegas Work Phone: 2(787)209-776785 [address] 12-23-2022 14:39-0400 Body mass index (BMI) [Ratio] 26.3 kg/m2 Dr. Monika Venegas Work Phone: 9(668)805-185385 [address] 12-23-2022 07:32-0400 Body temperature 97.5 [degF] Dr. Monika Venegas Work Phone: [facility] 12-23-2022 07:32-0400 Diastolic blood pressure 46 mm[Hg] Dr. Monika Venegas Work Phone: [facility] 12-23-2022 07:32-0400 Heart rate 53 /min Dr. Monika Venegas Work Phone: [facility] 12-23-2022 07:32-0400 Respiratory rate 18 /min Dr. Monika Venegas Work Phone: [facility] 12-23-2022 07:32-0400 SaO2% (BldA) [Mass fraction] 97 % Dr. Monika Venegas Work Phone: [facility] 12-23-2022 07:32-0400 Systolic blood pressure 101 mm[Hg] Dr. Monika Venegas Work Phone: [facility] 12-22-2022 14:14-0400 Body height 144.[address] Monika Venegas Work Phone: [facility] 12-22-2022 14:14-0400 Body weight 55.[address] Monika Venegas Work Phone: [facility] 10-09-2022 12:16-0400 Body height 143.5 cm Shaye Weston SALES ACCOUNT MANAGER-HOSE INSPECTOR AND PATCHER Work Phone: [facility] 10-09-2022 12:16-0400 Diastolic blood pressure 61 mm[Hg] Shaye Weston SALES ACCOUNT MANAGER-HOSE INSPECTOR AND PATCHER Work Phone: [facility] 10-09-2022 12:16-0400 Heart rate 63 /min radha Ledbetter SALES ACCOUNT MANAGER-HOSE INSPECTOR AND PATCHER Work Phone: [facility] 10-09-2022 12:16-0400 Systolic blood pressure 190 mm[Hg] Shaye Monica SALES ACCOUNT MANAGER-HOSE INSPECTOR AND PATCHER Work Phone: [facility] 10-08-2022 11:24-0400 Body height 142.2 cm Qian Randle MD Work Phone: [facility] 10-08-2022 11:24-0400 Body mass index (BMI) [Ratio] 27.31 kg/m2 Qian Randle MD Work Phone: [facility] 10-08-2022 11:24-0400 Body temperature 98.4 [degF] Qian Randle MD Work Phone: [facility] 10-08-2022 11:24-0400 Body weight 55.25 kg Qian Randle MD Work Phone: [facility] 10-08-2022 11:24-0400 Diastolic blood pressure 80 mm[Hg] Qian Randle MD Work Phone: [facility] 10-08-2022 11:24-0400 Heart rate 55 /min Qian Randle MD Work Phone: [facility] 10-08-2022 11:24-0400 Respiratory rate 16 /min Qian Randle MD Work Phone: [facility] 10-08-2022 11:24-0400 SaO2% (BldA) [Mass fraction] 99 % Qian Randle MD Work Phone: [facility] 10-08-2022 11:24-0400 Systolic blood pressure 128 mm[Hg] Qian Randle MD Work Phone: [facility] 09-30-2022 11:21-0400 Diastolic blood pressure 72 mm[Hg] Ernie Kincaid MD Work Phone: [facility] Comment on above: manual providers aware 09-30-2022 11:21-0400 Systolic blood pressure 196 mm[Hg] Ernie Kincaid MD Work Phone: 9(920)710-305831 [place] [address] Comment on above: manual providers aware 09-30-2022 11:17-0400 Body height 142.2 cm Ernie Kincaid MD Work Phone: [facility] 09-30-2022 11:17-0400 Body mass index (BMI) [Ratio] 26.97 kg/m2 Ernie Kincaid MD Work Phone: [facility] 09-30-2022 11:17-0400 Body temperature 99.39 [degF] Ernie Kincaid MD Work Phone: [facility] 09-30-2022 11:17-0400 Body weight 54.57 kg Ernie Kincaid MD Work Phone: [facility] 09-30-2022 11:17-0400 Heart rate 62 /min Ernie Kincaid MD Work Phone: [facility] 09-30-2022 11:17-0400 Respiratory rate 16 /min Ernie Kincaid MD Work Phone: [facility] 09-30-2022 11:17-0400 SaO2% (BldA) [Mass fraction] 96 % Ernie Kincaid MD Work Phone: [facility] 09-15-2022 13:37-0400 Body height 142.[address] Monika Venegas Work Phone: [facility] 09-15-2022 13:37-0400 Body mass index (BMI) [Ratio] 27.3 kg/m2 Dr. Monika Venegas Work Phone: [facility] 09-15-2022 13:37-0400 Body temperature 97.4 [degF] Dr. Monika Venegas Work Phone: [facility] 09-15-2022 13:37-0400 Body weight 55.[address] Monika Venegas Work Phone: [facility] 09-15-2022 13:37-0400 Diastolic blood pressure 66 mm[Hg] Dr. Monika Venegas Work Phone: [facility] 09-15-2022 13:37-0400 Heart rate 53 /min Dr. Monika Venegas Work Phone: [facility] 09-15-2022 13:37-0400 Respiratory rate 17 /min Dr. Monika Venegas Work Phone: [facility] 09-15-2022 13:37-0400 SaO2% (BldA) [Mass fraction] 99 % Dr. Monika Venegas Work Phone: [facility] 09-15-2022 13:37-0400 Systolic blood pressure 177 mm[Hg] Dr. Monika Venegas Work Phone: [facility] Encounters Encounter Date Encounter Type Care Provider Facility Start: 11-07-2024 End: 11-12-2024 Evaluation and management of inpatient MONIKA VENEGAS Facility:[facility] Comment on above: Epidural hematoma Start: 11-07-2024 ambulatory oMnika Venegas Facility: [facility] Start: 11-07-2024 End: 11-07-2024 Emergency department patient visit Monika Venegas Facility:[facility] Start: 09-27-2024 End: 09-27-2024 Emergency department patient visit Dr. Monika Venegas MD Work Phone: -Emergency Department Work Phone: Start: 07-24-2024 End: 07-24-[address] Nati Olvera Work Phone: Start: 07-24-2024 End: 07-24-2024 ambulatory Monika S Jolliff Facility:[facility] Start: 07-11-2024 End: 07-11-2024 Office outpatient visit 25 minutes Andrew Bueno MD Work Phone: Department of Radiation Oncology at [facility] Comment on above: Cancer of cerebral m eninges (Primary Dx); Skin change; Alopecia; S/P radiation therapy Start: 07-11-2024 ambulatory MONIKA S PILOGODFREY Facility: [facility] Start: 07-11-2024 End: 07-11-2024 Subsequent hospital visit by physician Kristine ABREU Work Phone: Imaging [facility] Comment on above: Arrived Start: 07-11-2024 ambulatory MONIKA S JOLLIFF Facility: [facility] Start: 06-19-2024 End: 06-19-[address] Nati Olvera, [facility] Office 3rd Cor Start: 06-19-2024 End: 06-19-2024 ambulatory Monika S Jolliff Facility:[facility] Start: 04-17-2024 End: 04-17-2024 ambulatory Monika S Jolliff Facility:[facility] Start: 03-14-2024 End: 03-14-2024 Office outpatient visit 25 minutes Andrew Bueno MD Work Phone: Department of Radiation Oncology at [facility] Comment on above: Cancer of cerebral m eninges (Primary Dx) Start: 03-14-2024 ambulatory MONIKA S JOLLIFF Facility: [facility] Start: 03-14-2024 End: 03-14-2024 Subsequent hospital visit by physician Andrew Bueno MD Work Phone: Imaging at [facility] Comment on above: Arrived Start: 03-14-2024 ambulatory ANDREW BUENO Facilit y:[facility] Start: 03-14-2024 End: 03-14-2024 Subsequent hospital visit by physician Andrew Bueno MD Work Phone: Imaging [facility] Comment on above: Arrived Start: 03-09-2024 End: 03-09-2024 ambulatory Monika S Jolliff Facility:[facility] Start: 02-24-2024 End: 02-24-2024 ambulatory Monika S Jolliff Facility:[facility] Start: 01-17-2024 End: 01-17-2024 ambulatory Monika S Jolliff Facility:[facility] Start: 01-13-2024 End: 01-13-2024 ambulatory Monika S Jolliff Facility:[facility] Start: 12-16-2023 End: 12-16-2023 ambulatory Monika S Jolliff Facility:[facility] Start: 11-29-2023 End: 11-29-2023 Office outpatient visit 25 minutes Andrew Bueno MD Work Phone: Department of Radiation Oncology at [facility] Comment on above: Cancer of cerebral m eninges (Primary Dx); Neuroendocrine cancer Start: 11-29-2023 ambulatory ANDREW BUENO Facilit y:[facility] Start: 11-29-2023 End: 11-29-2023 Subsequent hospital visit by physician Andrew Bueno MD Work Phone: Imaging at [facility] Comment on above: Arrived Start: 11-18-2023 End: 11-18-2023 ambulatory Monika S Jolliff Facility:[facility] Start: 08-18-2023 End: 08-18-2023 Subsequent hospital visit by physician Kristine ABREU Work Phone: Imaging at [facility] Comment on above: Arrived Start: 07-22-[address] Monika hameed Work Phone: [facility]-Physical Therapy Work Phone: Start: 07-19-2023 End: 07-19-[address] Monika Venegas Work Phone: [facility] Work Phone: Start: 07-19-2023 End: 07-19-[address] Monika Venegas Work Phone: [facility] Work Phone: Start: 05-19-2023 End: 05-19-2023 Office outpatient visit 25 minutes Andrew Bueno MD Work Phone: Department of Radiation Oncology at [facility] Comment on above: Cancer of cerebral m eninges (Primary Dx) Start: 03-16-2023 End: 03-16-2023 Subsequent hospital visit by physician [facility] John [place] 1 Department of Radiation Oncology at [facility] Comment on above: Arrived Start: 03-15-2023 End: 03-28-2023 Patient encounter procedure Andrew Bueno MD Work Phone: Department of Radiation Oncology at [facility] Comment on above: Cancer of cerebral m eninges (Primary Dx) Start: 03-14-2023 End: 03-14-2023 Subsequent hospital visit by physician [facility] [place] 1 Department of Radiation Oncology at [facility] Comment on above: Arrived Start: 03-10-2023 End: 03-10-2023 Subsequent hospital visit by physician Tonia [place] 1 Department of Radiation Oncology at [facility] Comment on above: Arrived Start: 03-08-2023 End: 03-08-2023 Patient encounter procedure Andrew Bueno MD Work Phone: Department of Radiation Oncology at [facility] Comment on above: Neuroendocrine cance r (Primary Dx) Start: 03-04-2023 End: 03-04-2023 Subsequent hospital visit by physician [facility] [place] 1 Department of Radiation Oncology at [facility] Comment on above: Arrived Start: 03-03-2023 End: 03-03-2023 Subsequent hospital visit by [facility] [place] 1 Department of Radiation Oncology at [facility] Comment on above: Arrived Start: 03-02-2023 End: 03-02-2023 Subsequent hospital visit by physician [facility] [place] 1 Department of Radiation Oncology at [facility] Comment on above: Arrived Start: 03-01-2023 End: 03-29-2023 Patient encounter procedure Andrew Bueno MD Work Phone: Department of Radiation Oncology at [facility] Comment on above: Cancer of cerebral m eninges (Primary Dx) Start: 03-01-2023 End: 03-01-2023 Subsequent hospital visit by physician [facility] [place] 1 Department of Radiation Oncology at [facility] Comment on above: Arrived Start: 02-28-2023 End: 02-28-2023 Subsequent hospital visit by physician [facility] [place] 1 Department of Radiation Oncology at [facility] Comment on above: Arrived Start: 02-24-2023 End: 02-24-2023 Subsequent hospital visit by physician [facility] [place] 1 Department of Radiation Oncology at [facility] Comment on above: Arrived Start: 02-23-2023 End: 02-23-2023 Subsequent hospital visit by physician [facility] [place] 1 Department of Radiation Oncology at [facility] Comment on above: Arrived Start: 02-18-2023 End: 02-18-2023 Subsequent hospital visit by physician [facility] [place] 1 Department of Radiation Oncology at [facility] Comment on above: Arrived Start: 02-17-2023 End: 02-17-2023 Subsequent hospital visit by physician [facility] John [place] 1 Department of Radiation Oncology at [facility] Comment on above: Arrived Start: 02-16-2023 End: 02-16-2023 Subsequent hospital visit by physician [facility] John [place] 1 Department of Radiation Oncology at [facility] Comment on above: Arrived Start: 02-15-2023 End: 03-16-2023 Patient encounter procedure Andrew Bueno MD Work Phone: Department of Radiation Oncology at [facility] Comment on above: Cancer of cerebral m eninges (Primary Dx) Start: 02-15-2023 End: 02-15-2023 Subsequent hospital visit by physician [facility] John [place] 1 Department of Radiation Oncology at [facility] Comment on above: Arrived Start: 02-14-2023 End: 02-14-2023 Subsequent hospital visit by physician [facility] [place] 1 Department of Radiation Oncology at [facility] Comment on above: Arrived Start: 02-11-2023 End: 02-11-2023 Subsequent hospital visit by physician Tonia [place] 1 Department of Radiation Oncology at [facility] Comment on above: Arrived Start: 02-10-2023 End: 02-10-2023 Subsequent hospital visit by physician [facility] John [place] 1 Department of Radiation Oncology at [facility] Comment on above: Arrived Start: 02-09-2023 End: 02-09-2023 Subsequent hospital visit by physician [facility] John [place] 1 Department of Radiation Oncology at [facility] Comment on above: Arrived Start: 02-08-2023 End: 03-08-2023 Patient encounter procedure Andrew Bueno MD Work Phone: Department of Radiation Oncology at [facility] Comment on above: Cancer of cerebral m eninges (Primary Dx) Start: 02-08-2023 End: 02-08-2023 Subsequent [facility] 1 Department of Radiation Oncology at [facility] Comment on above: Arrived Start: 02-04-2023 End: 02-04-2023 Subsequent hospital visit by physician [facility] John [place] 1 Department of Radiation Oncology at [facility] Comment on above: Arrived Start: 02-03-2023 End: 02-03-2023 Subsequent hospital visit by physician [facility] [place] 1 Department of Radiation Oncology at [facility] Comment on above: Arrived Start: 02-02-2023 End: 02-02-2023 Subsequent hospital visit by physician [facility] John [place] 1 Department of Radiation Oncology at [facility] Comment on above: Arrived Start: 02-01-2023 End: 02-01-2023 Subsequent hospital visit by physician Andrew Bueno MD Work Phone: Department of Radiation Oncology at [facility] Comment on above: Arrived Start: 01-19-2023 End: [...] 01-18-[address] Monika Venegas Work Phone: [facility] Work Phone: Start: 01-18-2023 End: 01-18-[address] Monika Venegas Work Phone: [facility] Start: 01-13-2023 End: 01-13-[address] Monika Venegas Work Phone: [facility] Work Phone: Start: 01-12-2023 End: 01-12-2023 Subsequent hospital visit by physician Andrew Bueno MD Work Phone: [facility] Comment on above: Arrived Start: 01-12-2023 End: 01-12-2023 Subsequent hospital visit by physician Andrew Bueno MD Work Phone: Department of Radiology Comment on above: Arrived Start: 12-29-2022 Non-patient / Non-visit Dr. Joni Venegas Work Phone: [facility] Work Phone: Start: 12-27-2022 Non-patient / Non-visit Dr. Joni Venegas Work Phone: [facility] Work Phone: Start: 12-24-2022 Non-patient / Non-visit Dr. Joni Venegas Work Phone: [facility] Work Phone: Start: 12-23-2022 End: 12-24-2022 Evaluation and management of inpatient Dr. Monika Venegas Work Phone: [facility]-Progressive Care Unit Work Phone: Start: 12-23-2022 End: 12-23-2022 Non-patient / Non-visit Dr. Monika Venegas Work Phone: [facility] Work Phone: Start: 12-23-2022 Non-patient / Non-visit Dr. Joni Venegas Work Phone: [facility] Work Phone: Start: 12-21-2022 Non-patient / Non-visit Dr. Joni Venegas Work Phone: [facility] Work Phone: Start: 12-20-2022 Non-patient / Non-visit Dr. Joni Venegas Work Phone: [facility] Work Phone: Start: 12-17-2022 Non-patient / Non-visit Dr. Joni Venegas Work Phone: [facility] Work Phone: Start: 12-16-2022 Non-patient / Non-visit Dr. Joni Venegas Work Phone: [facility] Work Phone: Start: 12-13-2022 Non-patient / Non-visit Dr. Joni Venegas Work Phone: [facility] Work Phone: Start: 12-10-2022 Non-patient / Non-visit Dr. Joni Venegas Work Phone: [facility] Work Phone: Start: 12-08-2022 Non-patient / Non-visit Dr. Joni Venegas Work Phone: [facility] Work Phone: Start: 12-07-2022 Non-patient / Non-visit Dr. Joni Venegas Work Phone: [facility] Work Phone: Start: 12-06-2022 End: 01-01-2023 Evaluation and management of inpatient Dr. Monika Venegas Work Phone: [facility]-Rehab Unit Work Phone: Start: 11-09-2022 End: 11-09-[address] Monika Venegas Work Phone: [facility] Work Phone: Start: 11-09-2022 End: 11-09-[address] Monika Venegas Work Phone: [facility]-Laboratory Start: 10-29-2022 End: 10-29-[address] Monika Venegas Work Phone: [facility] Work Phone: Start: 10-29-2022 End: 10-29-[address] Monika Venegas Work Phone: [facility]-Cat Scan, [facility] Start: 10-09-2022 End: 10-09-2022 Subsequent hospital visit by physician Shaye Weston SALES ACCOUNT MANAGER-HOSE INSPECTOR AND PATCHER Work Phone: Imaging [facility] Comment on above: Arrived Start: 10-08-2022 End: 10-08-2022 Subsequent hospital visit by physician Qian Randle MD Work Phone: Imaging [facility] Comment on above: Arrived Start: 10-08-2022 End: 10-08-2022 Office consultation new/estab patient 60 min Qian Randle MD Work Phone: Pre-Procedure Evaluation and Assessment [facility] Comment on above: Preop exam for inter nal medicine (Primary Dx); Skull mass; Essential hypertension; Hyperlipidemia, unspecified hyperlipidemia type Start: 10-08-2022 End: 10-08-2022 Patient encounter status Qian Randle MD Work Phone: Imaging [facility] Start: 10-04-2022 End: 10-04-2022 Patient encounter procedure [facility] Outside Imaging Ct Scan So Outside Imaging Second Opinion Start: 09-30-2022 End: 09-30-2022 Subsequent hospital visit by physician Joanne Mitchell SALES ACCOUNT MANAGER-HOSE INSPECTOR AND PATCHER Work Phone: Outside Imaging Start: 09-30-2022 End: 09-30-[address] Monika Venegas Work Phone: [facility] Work Phone: Start: 09-30-2022 End: 09-30-[address] Monika Venegas Work Phone: [facility] Start: 09-30-2022 End: 09-30-2022 Office outpatient new 45 minutes Ernie Kincaid MD Work Phone: Division of Neuro Surgery [facility] Comment on above: Skull mass (Primary Dx) Start: 09-28-2022 End: 09-28-[address] Monika Venegas Work Phone: [facility] Start: 09-23-2022 End: 09-23-[address] Monika Venegas Work Phone: [facility] Work Phone: Start: 09-23-2022 End: 09-23-[address] Monika Venegas Work Phone: [facility] Start: 09-21-2022 End: 09-21-[address] Monika Venegas Work Phone: [facility] Work Phone: Start: 09-21-2022 End: 09-21-[address] Monika Venegas Work Phone: [facility] Start: 09-15-2022 End: 09-15-[address] Monika Venegas Work Phone: [facility] Start: 05-14-2022 End: 05-14-2022 ambulatory [facility] Work Phone: Start: 05-14-2022 End: 05-14-2022 Patient encounter procedure [facility]Outpatient Breast Imaging Start: 03-23-2022 End: 03-23-2022 ambulatory [facility] Work Phone: Start: 03-23-2022 End: 03-23-2022 Patient encounter procedure [facility] [facility] Procedures Date Procedure Procedure Detail Performing Clinician Start: 11-12-2024 Echo tthrc r-t 2d w/wom-mode compl spec&colr d Angel Hilton MD Work Phone: Start: 11-12-2024 Creatinine blood Jl [facility] Work Phone: Start: 11-11-2024 Creatinine blood Jl [facility]AN [facility] Work Phone: Start: 11-10-2024 CARDIAC RHYTHM Other Ot her OT Start: 11-10-2024 End: 11-10-2024 Mri brain brain stem w/o w/contrast material Staci Luna MD Work Phone: Start: 11-10-2024 Creatinine blood Jl [facility]AN [facility] Work Phone: Start: 11-09-2024 GENERAL PROCEDURE Shasha ROMAN Work Phone: Start: 11-09-2024 Assay of magnesium Jl ROMAN [facility] Work Phone: Start: 11-09-2024 Hepatic function panel Jl [facility]AN [facility] Work Phone: Start: 11-08-2024 IP CONSULT TO SPEECH THERAPY Jl [facility]AN [facility] Work Phone: Start: 11-07-2024 Drug tst prsmv instr mnt chem analyzers pr date Ignacio De La Garza MD, PhD Work Phone: Start: 11-07-2024 EXTRA MICRO Ignacio De La Garza MD, PhD Work Phone: Start: 11-07-2024 URINALYSIS REFLEX TO CULTURE Ignacio De La Garza MD, PhD Work Phone: Start: 11-07-2024 Urnls dip stick/tabl et reagent auto microscopy Ignacio De La Garza MD, PhD Work Phone: Start: 11-07-2024 Antibody screen Ignacio De La Garza Sr., MD, PhD Work Phone: Start: 11-07-2024 Ct cervical spine w/ o contrast material Smiley Bailey MD, MPH Work Phone: Start: 11-07-2024 Ct head/brain w/o contrast material Smiley Bailey MD, MPH Work Phone: Start: 11-07-2024 Radiologic examinati on pelvis 1/2 views Ignacio De La Garza MD, PhD Work Phone: Start: 11-07-2024 Radiologic exam ches t single view Ignacio De La Garza MD, PhD Work Phone: Start: 11-07-2024 Antibody screen ANDREW BUENO Comment on above: Performed By: #### M REMY, IPB, CHM7, HFP #### [facility] ([facility]) [address] [address] Start: 11-07-2024 ALCOHOL (ETHANOL),BLOOD Ignacio De La Garza MD, PhD Work Phone: Start: 11-07-2024 End: 11-07-2024 Assay of thyroid stimulating hormone tsh Ignacio De La Garza MD, PhD Work Phone: Start: 11-07-2024 Blood typing serolog ic abo Igancio De La Garza MD, PhD Work Phone: Start: 11-07-2024 CBC AND ELECTRONIC DIFF Ignacio De La Garza MD, PhD Work Phone: Start: 11-07-2024 Complete blood count with white cell differential, automated Ignacio De La Garza MD, PhD Work Phone: Start: 11-07-2024 GOLD TOP TUBE Ignacio De La Garza MD, PhD Work Phone: Start: 11-07-2024 LAVENDER TOP TUBE Eugenio s Chaparro De La Garza MD, PhD Work Phone: Start: 11-07-2024 LT BLUE TOP TUBE Ignacio De La Garza MD, PhD Work Phone: Start: 11-07-2024 MINT GREEN TOP TUBE José Antonio De La Garza MD, PhD Work Phone: Start: 11-07-2024 RAINBOW DRAW Ignacio De La Garza MD, PhD Work Phone: Start: 09-27-2024 X-ray of chest, PA a [...] Radiologic exam ches t 2 views Qian Ranlde MD Work Phone: Start: 10-08-2022 EXTRA MICRO Qian greene MD Work Phone: Start: 10-08-2022 Iadna s aureus ampli fied probe tq Qian Randle MD Work Phone: Start: 10-08-2022 URINALYSIS REFLEX TO CULTURE Qian Randle MD Work Phone: Start: 10-08-2022 PREPARE TO TRANSFUSE OR RED BLOOD CELLS Qian Randle MD Work Phone: Start: 10-04-2022 Ct thorax w/contrast material Joanne Mitchell SALES ACCOUNT MANAGER-HOSE INSPECTOR AND PATCHER Work Phone: Start: 09-30-2022 CT Abdomen and Pelvis V ictoria E Stephen SALES ACCOUNT MANAGER-HOSE INSPECTOR AND PATCHER Work Phone: Start: 09-30-2022 CT of chest and abdomen Dr. Monika Venegas Work Phone: Start: 09-23-2022 CT of head with contrast Dr. Monika Venegas Work Phone: Start: 05-14-2022 Screening mammography History of radiation therapy S/P radiation therapy Andrew Bueno MD Work Phone: Plan of Treatment Date Care Activity Detail Author Start: 11-07-2034 Tetanus vaccination TETANUS [facility] Start: 11-28-2024 End: 11-28-2024 Patient encounter procedure 11/28/2024 12:00 PM EDT Office Visit Department of Radiation Oncology at [facility] [address] [place] [address] Andrew Bueno MD [address] [place] [address] Department of Radiation Oncology at [facility] Start: 11-14-2024 End: 11-14-2024 Patient encounter procedure Imaging at [facility] Start: 09-27-2024 [facility] Start: 09-27-2024 [facility] Start: 07-11-2024 End: 07-11-2025 MR Brain W contrast IV [facility] Work Phone: Comment on above: 1 Occurrences starti ng 07/11/2024 until 07/11/2024 Expected: 07/11/2024 , Expires: 07/11/2025 Start: 07-11-2024 End: 07-11-2024 Patient encounter procedure Imaging at [facility] Start: 06-14-2024 End: 03-14-2025 MR Brain W contrast IV MRI BRAIN WITH PERFUSION Imaging Routine Cancer of cerebral meninges Expected: 06/14/2024, Expires: 03/14/2025 [facility] Comment on above: Expected: 06/14/2024 , Expires: 03/14/2025 Start: 03-14-2024 End: 03-14-2024 Patient encounter procedure Imaging at [facility] Start: 03-14-2024 End: 03-14-2024 Patient encounter procedure 03/14/2024 9:30 AM EDT Appointment Imaging [facility] [address] [place] [phone] Andrew Bueno MD [address] [place] [address] Imaging [facility] Start: 02-05-2024 Influenza vaccination [facility] Start: 12-07-2023 Potassium [Moles/vol ume] in Serum or Plasma POTASSIUM [facility] Start: 11-29-2023 End: 11-28-2024 MR Brain W contrast IV [facility] Comment on above: 1 Occurrences starti ng 11/29/2023 until 11/29/2023 Expected: 11/29/2023 , Expires: 11/28/2024 Start: 11-29-2023 End: 11-28-2024 PT Skull base to mid-thigh NUC PET NEUROENDOCRINE Imaging Routine Cancer of cerebral meninges Neuroendocrine cancer Expected: 11/29/2023, Expires: 11/28/2024 [facility] Comment on above: Expected: 11/29/2023 , Expires: 11/28/2024 Start: 11-29-2023 End: 11-29-2023 Patient encounter procedure Imaging at [facility] Start: 10-09-2023 Potassium [Moles/vol ume] in Serum or Plasma POTASSIUM [facility] Start: 08-23-2023 End: 08-23-2023 Telemedicine consultation with patient 08/23/2023 5:30 PM EDT Telemedicine Department of Radiation Oncology at [facility] [place] [id number] [place] [phone] Andrew Bueno MD [address] [place] [address] Department of Radiation Oncology at [facility] Start: 08-18-2023 End: 05-19-2024 MR Brain W contrast IV [facility] Comment on above: Expected: 08/18/2023 , Expires: 05/19/2024 1 Occurrences starti ng 08/18/2023 until 08/18/2023 Start: 08-18-2023 End: 08-18-2023 Patient encounter procedure Imaging at [facility] Start: 05-19-2023 End: 05-19-2023 Patient encounter procedure Department of Radiation Oncology at [facility] Start: 05-19-2023 End: 05-19-2023 Patient encounter procedure Imaging at [facility] Start: 05-14-2023 Screening for malign ant neoplasm of breast MAMMOGRAM SCREENING DISCUSSION [facility] Start: 03-15-2023 End: 03-15-2024 MR Brain W contrast IV MRI BRAIN WITH PERFUSION Imaging Routine Cancer of cerebral meninges Expected: 03/15/2023, Expires: 03/15/2024 [facility] Comment on above: Expected: 03/15/2023 , Expires: 03/15/2024 Start: 03-15-2023 End: 03-15-2023 Patient encounter procedure 03/15/2023 10:00 AM EDT Office Visit Department of Radiation Oncology at [facility] [address] [place] [phone] Andrew Bueno MD [address] [place] [phone] Department of Radiation Oncology at [facility] Start: 03-08-2023 End: 03-08-2023 Patient encounter procedure Department of Radiation Oncology at [facility] Start: 03-01-2023 End: 03-01-2023 Patient encounter procedure 03/01/2023 10:00 AM EDT Office Visit Department of Radiation Oncology at [facility] [address] [place] [phone] Andrew Bueno MD [address] [place] [phone] Department of Radiation Oncology at [facility] Start: 02-22-2023 End: 02-22-2023 Patient encounter procedure 02/22/2023 10:20 AM EDT Office Visit Department of Radiation Oncology at [place] [address] [address] [place] [phone] Andrew Bueno MD [address] [place] [phone] Department of Radiation Oncology at [facility] Start: 02-17-2023 Subsequent hospital visit by physician 02/17/2023 9:09 AM EDT Hospital Encounter Department of Radiation Oncology at [place] [address] [address] [place] [phone] Arrived Department of Radiation Oncology at [facility] Comment on above: Arrived Start: 02-15-2023 End: 02-15-2023 Patient encounter procedure 02/15/2023 9:40 AM EDT Office Visit Department of Radiation Oncology at [place] [address] [address] [place] [phone] Andrew Bueno MD [address] [place] [phone] Department of Radiation Oncology at [facility] Start: 02-08-2023 End: 02-08-2023 Patient encounter procedure 02/08/2023 10:40 AM EDT Office Visit Department of Radiation Oncology at [place] [address] [address] [place] [phone] Andrew Bueno MD [address] [place] [phone] Department of Radiation Oncology at [facility] Start: 02-04-2023 Influenza vaccination INFLUENZA VACC INE (#1) [facility] Start: 02-01-2023 End: 02-01-2023 Patient encounter procedure 02/01/2023 1:00 PM EDT Office Visit Department of Radiation Oncology at [facility] [address] [place] [address] Andrew Bueno MD [address] [place] [phone] Department of Radiation Oncology at [facility] Start: 01-19-2023 End: 01-19-2023 Patient encounter procedure Department of Radiation Oncology Start: 01-02-2023 Patient discharge [facility] Start: 01-01-2023 [facility] Start: 12-31-2022 [facility] Start: 12-29-2022 End: 12-30-2022 [facility] Start: 12-29-2022 [facility] Start: 12-27-2022 Referral to service [facility] Start: 12-24-2022 Patient discharge [facility] Start: 12-24-2022 Care planning and pr oblem solving actions [facility] Start: 12-24-2022 Chart related administrative procedure [facility] Start: 12-23-2022 End: 12-24-2022 [facility] Start: 12-23-2022 Care planning and pr oblem solving actions [facility] Start: 12-23-2022 Cardiac monitoring [facility] Start: 12-23-2022 Admission procedure [facility] Start: 12-23-2022 Provision of activit y privileges [facility] Start: 12-23-2022 Assessment of risk o f venous thromboembolism [facility] Start: 12-23-2022 Insertion of cathete r into peripheral vein [facility] Start: 12-23-2022 Measuring intake and output [facility] Start: 12-23-2022 Providing care accor ding to standard [facility] Start: 12-23-2022 Referral to anatomy professor [facility] Start: 12-23-2022 Referral to occupati onal therapist [facility] Start: 12-23-2022 Referral to service [facility] Start: 12-23-2022 Following clinical pathway protocol [facility] Start: 12-23-2022 Patient discharge [facility] Start: 12-23-2022 Patient referral to dietitian [facility] Start: 12-22-2022 [facility] Start: 12-16-2022 [facility] Start: 12-10-2022 Following clinical pathway protocol [facility] Start: 12-09-2022 Application of elast ic bandage [facility] Start: 12-06-2022 Application of intermittent pneumatic compression device [facility] Start: 12-06-2022 [facility] Start: 12-06-2022 Recommendation to continue with treatment [facility] Start: 12-06-2022 Urinary bladder training [facility] Start: 12-06-2022 Wound care [facility] Start: 12-06-2022 Referral to service [facility] Start: 12-06-2022 Admission procedure [facility] Start: 12-06-2022 Patient referral to dietitian [facility] Start: 12-06-2022 Referral to occupati onal therapist [facility] Start: 12-06-2022 Vital signs measurements [facility] Start: 12-06-2022 [facility] Start: 12-06-2022 Speech therapy assessment [facility] Start: 10-28-2022 End: 10-28-2022 Patient encounter procedure 10/28/2022 Office Visit Neurosurgery Neuro Oncology Shaye Weston, SALES ACCOUNT MANAGER-HOSE INSPECTOR AND PATCHER [address] [place] [phone] Division of Neuro Surgery at [facility] Start: 10-13-2022 End: 10-13-2022 Craniectomy w/excision tumor/lesion [...] Hospital Encounter Magnetic Resonance Imaging Shaye Weston, SALES ACCOUNT MANAGER-HOSE INSPECTOR AND PATCHER [address] [place] [address] Imaging Outpatient Care [facility] Start: 10-07-2022 End: 10-07-2022 Telemedicine consultation with patient 10/07/2022 Telemedicine Neurosurgery Neuro Oncology Ernie Kincaid MD [address] [place] [address] Division of Neuro Surgery at [facility] Start: 09-30-2022 End: 10-01-2023 CT Abdomen and Pelvis W contrast IV CT ABDOMEN/PELVIS WITH CONTRAST Imaging STAT Skull mass Expected: 09/30/2022, Expires: 10/01/2023 [facility] Comment on above: Expected: 09/30/2022 , Expires: 10/01/2023 Start: 09-30-2022 End: 10-01-2023 CT Chest W contrast IV CT CHEST WITH CONTRAST Imaging STAT Skull mass Expected: 09/30/2022, Expires: 10/01/2023 [facility] Comment on above: Expected: 09/30/2022 , Expires: 10/01/2023 Start: 07-24-2022 COVID-19 VACCINE (2 - Moderna series) COVID-19 VACCINE (2 - Moderna series) [facility] Start: 04-20-2022 COVID-19 VACCINE (2 - Moderna risk series) COVID-19 VACCINE (2 - Moderna risk series) [facility] Start: 11-19-2018 RSV VACCINE (1 - 1-d ose 75+ series) RSV VACCINE (1 - 1-dose 75+ series) [facility] Start: 11-19-2008 Pneumococcal vaccination PNEUM OCOCCAL VACCINE SERIES (1 - PCV) [facility] Start: 2003 RSV VACCINE (1 - 1-d ose 60+ series) RSV VACCINE (1 - 1-dose 60+ series) [facility] Start: 11-19-1993 Zoster vaccine hzv l henrietta for subcutaneous use ZOSTER (SHINGLES) VACCINE (1 of 2) [facility] Start: 11-19-1988 Screening for malign ant neoplasm of colon COLORECTAL CANCER SCREENING DISCUSSION [facility] Start: 11-19-1964 Screening for malign ant neoplasm of cervix CERVICAL CANCER SCREENING DISCUSSION [facility] Start: 11-19-1962 Pneumococcal vaccination PNEUM OCOCCAL VACCINE SERIES (1 of 2 - PCV) [facility] Start: 11-19-1962 Third diphtheria, te tanus and acellular pertussis (DTaP) vaccination TDAP (ADULT) [facility] Start: 11-19-1962 Zoster vaccine hzv l henrietta for subcutaneous use ZOSTER (SHINGLES) VACCINE (1 of 2) [facility] Start: 11-19-1949 Pneumococcal vaccination [facility] Start: 05-21-1944 COVID-19 VACCINE (#1) COVID-19 VACCI NE (#1) [facility] Start: 1943 Hepatitis C screening HEPATITI S C VIRUS SCREENING [facility] Start: 1943 Potassium [Moles/vol ume] in Serum or Plasma POTASSIUM [facility] Start: 1943 Screening for osteoporosis DEXA SCAN DISCUSSION [facility] Start: 1943 Tetanus vaccination TETANUS [facility] Cranioplasty skull d efect 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 Skull mass [facility] Cranioplasty skull d efect 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 Skull mass [facility] Ecg routine ecg w/le ast 12 lds w/i&r ND ELECTROCARDIOGRAM, COMPLETE ND - OFFICE PERFORMED Routine Preop exam for internal medicine Skull mass Essential hypertension Hyperlipidemia, unspecified hyperlipidemia type Ordered: 10/08/2022 [facility] Comment on above: Ordered: 10/08/2022 End: 11-07-2024 ED US FAST ED US FAST Imaging STAT One Time for 1 Occurrences starting 11/07/2024 until 11/07/2024 [facility] Comment on above: One Time for 1 Occur rences starting 11/07/2024 until 11/07/2024 Fth/gft free w/direc t closure s/a/l 20 cm/< GRAFT SKIN FULL THICKNESS SCALP (FTSG) Skull mass [facility] Fth/gft free w/direc t closure s/a/l 20 cm/< GRAFT SKIN FULL THICKNESS SCALP (FTSG) [facility] End: 10-09-2022 MR Brain [facility] Work Phone: Comment on above: 1 Occurrences starti ng 10/09/2022 until 10/09/2022 End: 01-12-2023 MR Brain W contrast IV [facility] Comment on above: 1 Occurrences starti ng 01/12/2023 until 01/12/2023 End: 03-14-2024 MR Brain W contrast IV [facility] Comment on above: 1 Occurrences starti ng 03/14/2024 until 03/14/2024 [facility] myoq/fscq flap head&neck w/named vasc pedcl FLAP MUSCLE/MYOCUTANEOUS/FASC IOCUTANEOUS HEAD OR NECK Skull mass [facility] Musc myoq/fscq flap head&neck w/named vasc pedcl FLAP MUSCLE/MYOCUTANEOUS/FASC IOCUTANEOUS HEAD OR NECK Skull mass [facility] Patient Education [facility] Work Phone: Patient referral [facility] Work Phone: End: 01-12-2023 PT Skull base to mid-thigh [facility] Comment on above: 1 Occurrences starti ng 01/12/2023 until 01/12/2023 RAD ONC SIMULATION RAD ONC SIMUL ATION Imaging Routine Neuroendocrine cancer Cancer of cerebral meninges 01/19/2023 2:34 PM EDT [facility] End: 11-07-2024 Standard ECG ECG ECG STAT One Time for 1 Occurrences starting 11/07/2024 until 11/07/2024 [facility] Comment on above: One Time for 1 Occur rences starting 11/07/2024 until 11/07/2024 Troponin T.cardiac [Mass/volume] in Serum or Plasma by High sensitivity method [facility] US Carotid arteries [facility] End: 11-07-2024 VITAMIN D (25-HYDROXY,TOTAL) VITAMIN D (25-HYDROXY,TOTAL) Lab Routine One Time for 1 Occurrences starting 11/07/2024 until 11/07/2024 [facility] Comment on above: One Time for 1 Occur rences starting 11/07/2024 until 11/07/2024 Immunizations Immunization Date Immunization Notes Care Provider Matt palm 11-07-2024 tetanus and diphther ia toxoids, adsorbed, preservative free, for adult use (5 Lf of tetanus toxoid and 2 Lf of diphtheria toxoid) Ignacio De La Garza Sr., MD, PhD Work Phone: [facility] 03-23-2022 influenza virus vaccine, unspecified formulation Andrew Bueno MD Work Phone: [facility] 04-06-2020 Influenza virus vaccine [facility] Payers Date Payer Category Payer Self-pay [id number] 2022 Medicare [id number] 2019 Managed Care (unspecified) MEDICARE SUPPLEMENT [id number] 2019 Unknown GENERIC PAYOR ME DICARE SUPPLEMENT [id number] 2019-Present [phone] [address] [address] [place] [address] [id number] 2019 Unknown [id number] 2008 Medicare [id number] 1943 Unknown [id number] 2.840.1.654116.3.579. 2.594 1943 Unknown [id number] 2.840.1.896841.3.579. 2.594 1943 Unknown [id number] .0.1.117551.3.579. 2.594 1943 Unknown [id number] .0.1.830099.3.579. 2.594 1943 Unknown [id number] .0.1.099320.3.579. 2.594 1943 Unknown [id number] 2.0.1.998564.3.579. 2.594 1943 Unknown [id number] .0.1.900189.3.579. 2.594 1943 Unknown [id number] 2.0.1.076561.3.579. 2.594 Medicare MEDICARE HMO OTHER [id number] Private Health Insurance [employer] SR SUPPLEM ENT INS [id number] Unknown [id number] 2.840.1.080040.3.579. 2.462 Unknown [id number] 2.840.1.058217.3.579. 2.462 Unknown [id number] 2.840.1.712324.3.579. 2.462 Unknown [id number] 2.840.1.932188.3.579. 2.462 Unknown [id number] 2.16.840.1.467742.3.579. 2.462 Unknown [id number] 2.16.840.1.241644.3.579. 2.462 Unknown [id number] 2.16.840.1.408794.3.579. 2.462 Unknown [id number] 2.16840.1.290421.3.579. 2.462 Unknown [id number] 2.16.840.1.924651.3.579. 2.462 Unknown [id number] 2.16840.1.339067.3.579. 2.462 Unknown [id number] 2.16840.1.192884.3.579. 2.462 Unknown [id number] 2.840.1.998823.3.579. 2.462 Social History Date Type Detail Facility Start: 07-31-2021 End: 07-19-2023 Tobacco smoking status NHIS Unknown if ever smoked [facility] Start: 08-28-2020 Alone [facility] Start: 08-14-2020 Non-smoker [facility] Start: 1945 Sex Assigned At Female [facility] Start: 1945 Sex Assigned At Not on file [facility] Start: 10-04-2022 End: 09-27-2024 Tobacco smoking status NHIS Never smoked tobacco [facility] Start: 10-04-2022 Tobacco use and exposure Smokeless tobacco non-user [facility] Start: 10-04-2022 End: 10-08-2022 Alcohol intake Current drinker of alcohol (finding) [facility] Start: 10-04-2022 Alcohol Comment socially once a year [facility] Start: 01-12-2023 End: 11-04-2024 Alcohol intake Ex-drinker (finding) [facility] Start: 11-18-2022 End: 07-11-2024 History of Social function [facility] Start: 11-18-2022 End: 07-11-2024 Alcohol Use Disorder Identification Test - Consumption [AUDIT-C] [facility] How often to you hav e a drink containing alcohol? Monthly or less [facility] How many standard dr inks containing alcohol do you have on a typical day? 1 or 2 [facility] How often do you hav e 6 or more drinks on 1 occasion? Never [facility] (I/We) worried mark anthony er (my/our) food would run out before (I/we) got money to buy more. Never true [facility] In the past 12 month s, has lack of transportation kept you from medical appointments or from getting medications? No [facility] In the past 12 month s, was there a time when you were not able to pay the mortgage or rent on time? No [facility] Start: 11-09-2022 End: 11-19-2022 Exposure to SARS-CoV-2 (event) Not sure [facility] Start: 07-08-2024 Gender identity Identifies as female gender (finding) [facility] Start: 07-08-2024 Sexual orientation Heterosexual (finding) [facility] Start: 09-27-2022 End: 09-27-2024 Sex Female (finding) [facility] Medical Equipment Procedure Code Equipment Code Equipment Original Text Equipment Identifier Dates Sealant Dural Ad herus [employer] Et - [id number] Start: 11-16-2022 Screw Bone 5mm 1 .8mm Emergency Craniofacial Level One - [id number] Start: 11-24-2022 Clearfit Cranial Implant [id number] Start: 11-25-2022 Clearfit Cranial Implant [id number] Start: 11-16-2022 Patch Dural 3x3i n Durepair Substitute - [id number] Start: 11-16-2022 Screw Bone 5mm 1 .8mm Emergency Craniomaxillofacial Level One - [id number] Start: 11-24-2022 Patch Dural 7x5i n Thk3.5mm Craniomaxillofacial - [id number] Start: 11-24-2022 Mesh Titanium 3m m Regular Cranial Screen Panel 12-980-55- - [id number] Start: 11-24-2022 Plate Bone .6mm Curve Craniomaxillofacial 5x2 Hole Low - [id number] Start: 11-24-2022 Plate Bn .6mm Cr nmxf 3x2 Hl Lwpr Crv Seg Ti Nst - [id number] Start: 11-24-2022 Cover Kylie Hole Craniofacial .3mm 15mm Ultra Low Profile - [id number] Start: 11-24-2022 Screw Bone 5mm 1 .5mm Craniomaxillofacial Level One - [id number] Start: 11-24-2022 Screw Bone Drill Free Craniomaxillofacial Titanium Level One - [id number] Start: 11-25-2022 Cover Bur Hl Crn mxf .4mm 17mm Matrixneuro Ti Nst Eddie - [id number] Start: 11-24-2022 Cover Bur Hl Crn mxf .4mm 17mm Matrixneuro Ti Nst Eddie - [id number] Start: 11-16-2022 Screw 1.5x4mm 04.503.104.01 - [id number] Start: 11-24-2022 Screw 1.5x4mm 04.503.104.01 - [id number] Start: 11-16-2022 Cover Bur Hl Crn mxf .4mm 15mm Matrixneuro Ti Nst Eddie - [id number] Start: 11-24-2022 Cover Bur Hl Crn mxf .4mm 15mm Matrixneuro Ti Nst Eddie - [id number] Start: 11-16-2022 Cover [place] Craniomaxillofacial .4mm 24mm Matrixneuro - [id number] Start: 11-24-2022 Cover Kylie Hole Craniomaxillofacial .4mm 24mm Matrixneuro - [id number] Start: 11-16-2022 Mesh Matrixneuro [id number].6mm Titanium Cranial Rigid - [id number] Start: 11-24-2022 Mesh Matrixneuro 014x351o.6mm Titanium Cranial Rigid - [id number] Start: 11-16-2022 Goals Date Patient Goal Desired Activity /State Functional Status Date Assessment Result Facility 11-08-2024 Are you deaf, or do you have serious difficulty hearing Yes 11/08/2024 4:11 PM Shelby Montano RN Yes [facility] 11-08-2024 Are you blind, or do you have serious difficulty seeing, even when wearing glasses No 11/08/2024 4:11 PM Shelby Montano RN No [facility] 11-08-2024 Do you have serious difficulty walking or climbing stairs Yes 11/08/2024 4:11 PM Shelby Montano, MICAH Yes [facility] 11-08-2024 Do you have difficul ty dressing or bathing No 11/08/2024 4:11 PM Shelby Montano RN No [facility] 11-08-2024 Because of a physica l, mental, or emotional condition, do you have difficulty doing errands alone such as visiting a physician's office or shopping No 11/08/2024 4:11 PM Shelby Montano, MICAH No [facility] 01-06-2023 Are you deaf, or do you have serious difficulty hearing Yes 01/06/2023 9:52 AM Hansa Patiño, MICAH Yes [facility] 01-06-2023 Are you blind, or do you have serious difficulty seeing, even when wearing glasses No 01/06/2023 9:52 AM Hansa Patiño, MICAH No [facility] 01-06-2023 Do you have serious difficulty walking or climbing stairs Yes 01/06/2023 9:52 AM Hansa Patiño, MICAH Yes [facility] 01-06-2023 Do you have difficul ty dressing or bathing No 01/06/2023 9:52 AM Hansa Patiño, MICAH No [facility] 01-06-2023 Because of a physica l, mental, or emotional condition, do you have difficulty doing errands alone such as visiting a physician's office or shopping No 01/06/2023 9:52 AM Hansa Patiño RN No [facility] 01-01-2023 Functional status Activity Abili ty Standby Assist [facility] Work Phone: 12-31-2022 Functional status Chair [facility] Work Phone: 12-24-2022 Functional status Ambulates [facility] Work Phone: 12-23-2022 Functional status Ambulates [facility] Work Phone: Mental Status Date Assessment Result Facility 11-08-2024 Because of a physica l, mental, or emotional condition, do you have serious difficulty concentrating, remembering, or making decisions No 11/08/2024 4:11 PM EDT Shelby Mae RN No [facility] 09-27-2024 Cognitive function Awake;Alert;A ppropriate; Follows Commands [facility] Work Phone: 01-06-2023 Because of a physica l, mental, or emotional condition, do you have serious difficulty concentrating, remembering, or making decisions No 01/06/2023 9:52 AM Hansa Patiño RN No [facility] 01-01-2023 Cognitive function Voice/Name [facility] Work Phone: 12-24-2022 Cognitive function Voice/Name [facility] Work Phone: 12-23-2022 Cognitive function Voice/Name [facility] Work Phone: Clinical Notes 09-30-2022 to 11-12-2024 Plan of Care - Shanna Benavides RN - 11/12/2024 3:44 PM EDTPlan of Care - Shanna Benavides RN - 11/12/2024 3:44 PM EDTNursing Notes - Shanna Benavides RN - 11/12/2024 3:42 PM EDTDischarge Instructions Note Date & Type Note Facility 11-12-2024 Plan of care note Problem: Adult Inpatient Plan of Care Goal: Plan of Care Review Outcome: Adequate for Discharge Goal: Patient-Specific Goal (Individualized) Outcome: Adequate for Discharge Goal: Absence of Hospital-Acquired Illness or Injury Outcome: Adequate for Discharge Goal: Optimal Comfort and Wellbeing Outcome: Adequate for Discharge Intervention: Provide Person-Centered Care Flowsheets (Taken 11/12/2024 0859) Trust Relationship/Rapport: care explained emotional support provided empathic listening provided questions answered Goal: Readiness for Transition of Care Outcome: Adequate for Discharge Problem: OT - Balance Goal: Balance - Standing - Patient will perform 5 minutes of functional task in standing with minimal assistance and fair balance to promote safety and improved balance required for self-care activities. Outcome: Adequate for Discharge Problem: Mobility Impairment Goal: Optimal Mobility [place] and Safety Outcome: Adequate for Discharge Problem: Communication Impairment Goal: Effective Communication Skills Outcome: Adequate for Discharge [facility] 11-12-2024 Miscellaneous Notes Problem: Adult Inpatient Plan of Care Goal: Plan of Care Review Outcome: Adequate for Discharge Goal: Patient-Specific Goal (Individualized) Outcome: Adequate for Discharge Goal: Absence of Hospital-Acquired Illness or Injury Outcome: Adequate for Discharge Goal: Optimal Comfort and Wellbeing Outcome: Adequate for Discharge Intervention: Provide Person-Centered Care Flowsheets (Taken 11/12/2024 0859) Trust Relationship/Rapport: care explained emotional support provided empathic listening provided questions answered Goal: Readiness for Transition of Care Outcome: Adequate for Discharge Problem: OT - Balance Goal: Balance - Standing - Patient will perform 5 minutes of functional task in standing with minimal assistance and fair balance to promote safety and improved balance required for self-care activities. Outcome: Adequate for Discharge Problem: Mobility Impairment Goal: Optimal Mobility [place] and Safety Outcome: Adequate for Discharge Problem: Communication Impairment Goal: Effective Communication Skills Outcome: Adequate for Discharge Report called to [facility]. Problem: PT - General Goals Goal: Supine <-> Sit Transfers - Patient will perform supine to/from sit transfers with minimal assistance and with use of hospital bed features in order to improve functional mobility and safety. Outcome: Progressing Goal: Sit <-> Stand Transfers - Patient will perform sit to/from stand transfers with minimal assistance and least restrictive device in order to improve functional mobility and safety. Outcome: Progressing Goal: Standing Endurance/Balance - Patient will perform standing balance tasks for 5 min with minimal assistance and least restrictive device Outcome: Progressing Goal: Ambulation - Patient will ambulate 50 feet with minimal assistance and least restrictive device to improve ability to safely navigate home and community. Outcome: Progressing Problem: OT - ADLs Goal: Grooming - Patient will complete grooming in standing with minimal assistance for improved ability to safely complete ADLs. Outcome: Progressing Problem: OT - Transfers Goal: Transfers Sit/Stand - Patient will demonstrate good safety awareness during sit to/from stand functional transfer with minimal assistance and front-wheeled walker to demonstrate safe functional transfers. Outcome: Progressing Problem: OT - Balance Goal: Balance - Standing - Patient will perform 5 minutes of functional task in standing with minimal assistance and fair balance to promote safety and improved balance required for self-care activities. Outcome: Progressing Problem: OT - Endurance Goal: Endurance Functional Mobility - Patient will complete distance needed to access restroom with ww and min A for improved tolerance to safely complete I/ADL's Outcome: Progressing Problem: OT - Cognition Goal: Safety - Patient will demonstrate good safety awareness during ADL routine with 25% or less cues for accuracy. Outcome: Progressing Problem: Adult Inpatient Plan of Care Goal: Optimal Comfort and Wellbeing Intervention: Provide Person-Centered Care Flowsheets (Taken 11/12/2024 0859) Trust Relationship/Rapport: care explained emotional support provided empathic listening provided questions answered Problem: Adult Inpatient Plan of Care Goal: Plan of Care Review Outcome: Progressing Goal: Patient-Specific Goal (Individualized) Outcome: Progressing Goal: Absence of Hospital-Acquired Illness or Injury Outcome: Progressing Goal: Optimal Comfort and Wellbeing Outcome: Progressing Goal: Readiness for Transition of Care Outcome: Progressing Problem: Mobility Impairment Goal: Optimal Mobility [place] and Safety Outcome: Progressing Problem: Communication Impairment Goal: Effective Communication Skills Outcome: Progressing Orthostatic vitals obtained per MD order. See below: 11/10/24 1642 11/10/24 1644 11/10/24 1702 Vitals ICU/PCU Pulse (Heart Rate) 54 52 59 Heart Rate Source Monitor Monitor Monitor Resp Rate 20 18 24 BP 165/68 186/75 159/71 MAP (mmHg) 98 mmHg 108 mmHg 102 mmHg BP Method Automatic Automatic Automatic BP Location Left arm Left arm Right arm BP Position Lying Sitting Standing Oxygen Therapy O2 Sat (%) 98 % 97 % 98 % Problem: Adult Inpatient Plan of Care Goal: Plan of Care Review Outcome: Progressing Goal: Patient-Specific Goal (Individualized) Outcome: Progressing Goal: Absence of Hospital-Acquired Illness or Injury Outcome: Progressing Goal: Optimal Comfort and Wellbeing Outcome: Progressing Goal: Readiness for Transition of Care Outcome: Progressing Problem: Mobility Impairment Goal: Optimal Mobility [place] and Safety Outcome: Progressing Orthostatic vital signs obtained per MD order. See below. 11/10/24 0822 11/10/24 0827 11/10/24 0838 Vitals ICU/PCU Pulse (Heart Rate) 59 60 61 Heart Rate Source Monitor Monitor Monitor Resp Rate 16 19 19 BP 144/63 154/70 133/61 MAP (mmHg) 91 mmHg 100 mmHg 88 mmHg BP Method Automatic Automatic Automatic BP Location Left arm Left arm Left arm BP Position Lying Sitting Standing Oxygen Therapy O2 Sat (%) 100 % 100 % 98 % O2 Device room air room air room air Problem: Adult Inpatient Plan of Care Goal: Plan of Care Review Outcome: Progressing Goal: Patient-Specific Goal (Individualized) Outcome: Progressing Goal: Absence of Hospital-Acquired Illness or Injury Outcome: Progressing Goal: Optimal Comfort and Wellbeing Outcome: Progressing Goal: Readiness for Transition of Care Outcome: Progressing Problem: PT - General Goals Goal: Supine <-> Sit Transfers - Patient will perform supine to/from sit transfers with minimal assistance and with use of hospital bed features in order to improve functional mobility and safety. Outcome: Progressing Goal: Sit <-> Stand Transfers - Patient will perform sit to/from stand transfers with minimal assistance and least restrictive device in order to improve functional mobility and safety. Outcome: Progressing Goal: Standing Endurance/Balance - Patient will perform standing balance tasks for 5 min with minimal assistance and least restrictive device Outcome: Progressing Goal: Ambulation - Patient will ambulate 50 feet with minimal assistance and least restrictive device to improve ability to safely navigate home and community. Outcome: Progressing Problem: OT - ADLs Goal: Grooming - Patient will complete grooming in standing with minimal assistance for improved ability to safely complete ADLs. Outcome: Progressing Goal: Toileting - Patient will complete toileting task with moderate assistance and adaptive equipment as needed for improved ability to safely complete self-care activities. Outcome: Progressing Problem: OT - Transfers Goal: Transfers Sit/Stand - Patient will demonstrate good safety awareness during sit to/from stand functional transfer with minimal assistance and front-wheeled walker to demonstrate safe functional transfers. Outcome: Progressing Problem: OT - Balance Goal: Balance - Standing - Patient will perform 5 minutes of functional task in standing with minimal assistance and fair balance to promote safety and improved balance required for self-care activities. Outcome: Progressing Problem: OT - Endurance Goal: Endurance Functional Mobility - Patient will complete distance needed to access restroom with ww and min A for improved tolerance to safely complete I/ADL's Outcome: Progressing Problem: OT - Cognition Goal: Safety - Patient will demonstrate good safety awareness during ADL routine with 25% or less cues for accuracy. Outcome: Progressing Problem: PT - General Goals Goal: Supine <-> Sit Transfers - Patient will perform supine to/from sit transfers with minimal assistance and with use of hospital bed features in order to improve functional mobility and safety. Outcome: Ongoing Goal: Sit <-> Stand Transfers - Patient will perform sit to/from stand transfers with minimal assistance and least restrictive device in order to improve functional mobility and safety. Outcome: Ongoing Goal: Standing Endurance/Balance - Patient will perform standing balance tasks for 5 min with minimal assistance and least restrictive device Outcome: Ongoing Goal: Ambulation - Patient will ambulate 50 feet with minimal assistance and least restrictive device to improve ability to safely navigate home and community. Outcome: Ongoing Problem: OT - ADLs Goal: Grooming - Patient will complete grooming in standing with minimal assistance for improved ability to safely complete ADLs. Outcome: Ongoing Goal: Toileting - Patient will complete toileting task with moderate assistance and adaptive equipment as needed for improved ability to safely complete self-care activities. Outcome: Ongoing Problem: OT - Transfers Goal: Transfers Sit/Stand - Patient will demonstrate good safety awareness during sit to/from stand functional transfer with minimal assistance and front-wheeled walker to demonstrate safe functional transfers. Outcome: Ongoing Problem: OT - Balance Goal: Balance - Standing - Patient will perform 5 minutes of functional task in standing with minimal assistance and fair balance to promote safety and improved balance required for self-care activities. Outcome: Ongoing Problem: OT - Endurance Goal: Endurance Functional Mobility - Patient will complete distance needed to access restroom with ww and min A for improved tolerance to safely complete I/ADL's Outcome: Ongoing Problem: OT - Cognition Goal: Safety - Patient will demonstrate good safety awareness during ADL routine with 25% or less cues for accuracy. Outcome: Ongoing Neurosurgery Update: Consulted for fluid under craioplasty. Imaging reviewed which revealed stable extradural fluid under cranioplasty, as expected after procedure. No neurosurgical intervention at this time. - for question of seizures or intermittent altered mental status, recommend neurology evaluation if indicated. Otherwise can continue Keppra for 1 week total. - No neurosurgery follow up needed. - Neurosurgery will sign-off. Please call with questions. Andrew Chopra MD, Neurosurgery NS1 ([phone]) Problem: Adult Inpatient Plan of Care Goal: Plan of Care Review Outcome: Progressing Goal: Patient-Specific Goal (Individualized) Outcome: Progressing Goal: Absence of Hospital-Acquired Illness or Injury Outcome: Progressing Goal: Optimal Comfort and Wellbeing Outcome: Progressing Goal: Readiness for Transition of Care Outcome: Progressing Images from the original note were not included. On admission to [facility], from ED a dual RN initial assessment of skin condition was performed by Shelby Mae RN and Teresa Long RN. Skin Assessment: Skin not within defined limits. - Photo taken and uploaded into notes in IHIS: Yes Brent Score: 16 LDA Added:No Shelby Mae RN Right heel blanchable documented in this encounter [facility] 11-12-2024 Nurse [facility] History of Presen t illness Narrative Care Management Discharge Note Selected Continued Care - Admitted Since 11/07/2024 Destination Coordination complete. Service Provider Services Address Phone Fax Patient Preferred [facility] Inpatient Rehabilitation [address] [facility] [address] [phone] -- Transport Request Mode of Transfer: BLS Name of Discharge Transport Company: ([facility]) Discharge Transport ETA: 3pm Patient medically stable for discharge per physician/medical team. Patient/Rn Picu remain in agreement with the discharge plan. JEREMI Cast, [employer] Supervisor Available by Secure Chat Acute Physical Therapy Treatment Prior Gross Functional Mobility: used device, independent Current AM-PAC score(s): CURRENT AM-PAC Mobility Raw Score: 15 Based on the above AM-PAC score(s) and PT clinical judgment, patient is a good candidate [facility] Barriers to discharge home: Patient needs assistance with functional mobility Mobility equipment available at home: rollator, straight cane ADL equipment available at home: shower chair Equipment needed for discharge: to be determined Current therapy frequency recommendation in acute: PT Therapy Frequency: 5 times a week Activity Recommendations for outside of rehab session: 2 person pivot transfer Precautions and Weightbearing Status: Existing Precautions/Restrictions: fall Patient Safety Communication Prior to Visit: Nursing Subjective: pt was alert and cooperative and agreeable to participate Pain: General Pain Documentation (Adult, OB, Peds) Presence of Pain: denies pain/discomfort Presence of Pain Score (Auto-calculated): 0 Objective/Observation: Vitals/Vitals Responses to Treatment: WFL O2 Device: room air Cognition Overall Cognitive Status: Within Functional Limits Arousal/Alertness: Appropriate responses to stimuli Orientation Level: Oriented X4 Cognition Comments: pt continues to be very anxious with all mobility Extremity Assessments: See PT Evaluation flowsheet for Extremity Measurement updates. Skin and Edema: Balance: Standing Balance Static Standing-Level of Assistance: (contact guard to mod) Standing-Balance Support: Gait belt, Front-wheeled walker Skilled Rationale: Positioning, Sequencing, Hand placement, Verbal cues Standing Balance Skilled Intervention/Details: Pt completed standing throughout session up to 1-2 minutes with mostly min/mod assist due to patient with retro leaning. Pt completed standing at sink during functional ADLs. Pt completed additional standing with WW requiring cues for increased MUNDO and anterior weight shifting. Pt able to briefly progress to contact guard assist during true static standing with WW for 10-20 seconds before requiring a sitting rest break Mobility Assessment/Intervention: Supine to Sit Mobility [place] Level: Supine->Sit: minimum assist (75% patient effort) Bed Features/Set-up: Supine->Sit: Head of bed elevated, Use of bed rail Skilled Rationale: Positioning, Sequencing, Hand placement, Verbal cues Skilled Intervention/Details: Supine->Sit: increased time and step by step cues for sequencing Transfer Assessment/Intervention: Sit to Stand Transfer [place] Level: Sit->Stand: minimum assist (75% patient effort) Physical Assist: Sit->Stand: (1-2) Assistive Device: Sit->Stand: gait belt Skilled Rationale: Positioning, Sequencing, Hand placement, Verbal cues Skilled Intervention/Details: Sit->Stand: Pt educated in sit to stand transfers throughout session from EOB and chair. Pt required cues for hand placement and transfer technique Stand to Sit Transfer Skilled Intervention/Details: Stand->Sit: cues for hand placement and eccentric quad control each stand to sit Bed-Chair Transfer [place] Level: Bed<->Chair: moderate assist (50% patient effort) Physical Assist: Bed<->Chair: 2 person assist Assistive Device: Bed<->Chair: gait belt, hand held assist Skilled Rationale: Positioning, Sequencing, Hand placement, Verbal cues Skilled Intervention/Details: Bed<->Chair: Pt completed bed to chair transfer with arm and arm assist, pt required increased time but able to complete x 2-3 steps Gait/Functional Mobility Assessment/Intervention: Gait Assessment [place] Level: Gait: minimum assist (75% patient effort) Physical Assist: Gait: chair follow Assistive Device: Gait: gait belt, front-wheeled walker Ambulation Distance (Feet): (10) Gait Deviations Identified: decreased gait speed, decreased alize, decreased step length, decreased weight shifting, decreased stride length, decreased heel strike Gait Skilled Rationale: verbal, upright posture, increase step length Skilled Intervention/Details - Gait: Pt educated in gait trianing with slow alize/decreased step length, max encouragement to complete Stairs Assessment/Intervention: Outcome Score(s): CURRENT [facility] Basic Mobility Inpatient Short Form Turning over in bed: 3 - A Little Assistance Moving from lying on back to sittin - A Little Assistance Moving to and from bed to chair: 2 - A Lot of Assistance Sitting/standing from chair: 3 - A Little Assistance Walk in hospital room: 3 - A Little Assistance Climbing 3-5 steps with a railin - Total Assistance CURRENT [facility] Mobility Raw Score: 15 CURRENT [facility] Mobility Functional Limitation: 57.70% Impaired in Basic Mobility Interventions: Assessment & Plan: Pt progressed standing balance, gait distance Patient Instruction/Education this session: Learners: Patient Education provided: Activity outside of therapy, Discharge recommendations, Fall precautions Plan for next session: Continue to progress standing balance, endurance and gait distance Acute PT Goals Plan of Care by Karen Johnson PT at 11/12/2024 12:29 PM Version 1 of 1 Problem: PT - General Goals Goal: Supine <-> Sit Transfers - Patient will perform supine to/from sit transfers with minimal assistance and with use of hospital bed features in order to improve functional mobility and safety. Outcome: Progressing Goal: Sit <-> Stand Transfers - Patient will perform sit to/from stand transfers with minimal assistance and least restrictive device in order to improve functional mobility and safety. Outcome: Progressing Goal: Standing Endurance/Balance - Patient will perform standing balance tasks for 5 min with minimal assistance and least restrictive device Outcome: Progressing Goal: Ambulation - Patient will ambulate 50 feet with minimal assistance and least restrictive device to improve ability to safely navigate home and community. Outcome: Progressing PT treatment consisted of the following to progress towards the above goal(s): PT Evaluation and Treatment Time Therapeutic Activity Time Entry: 16 Gait Training Time Entry: 14 Treating Therapist: Karen Johnson PT Additional Details: PT Co-Eval/Treatment Information Co-evaluation/co-treatment performed?: Yes, simultaneous billable skilled care was necessary due to medical complexity and functional deficits Other discipline: OT Rationale for need to co-eval/treat: postural control Co-treatment goal focus: balance, mobility PPE used during patient interaction: gloves Patient location at end of session: chair Alarms on at end of session: chair alarm, RN aware Needs in reach. Time In: 1118 Time Out: 1148 Total Visit Time: 30 minutes Total Treatment Time (skilled, billable minutes): 30 minutes Upon discontinuation of Acute Care Physical Therapy Services or patient discharge from the hospital this note represents the current Physical Therapy Discharge Summary. Acute Occupational Therapy Treatment Prior Gross Functional Mobility: used device, independent Current AM-PAC score(s): CURRENT AM-PAC Activity Raw Score: 14 Based on the above AM-PAC score(s), and OT clinical judgment, discharge destination recommendation is: [facility] Barriers to discharge home: Patient needs assistance with functional mobility, Patient needs assistance with ADLs, Patient needs assistance with IADLs (see note below) Mobility equipment available at home: rollator, straight cane ADL equipment available at home: shower chair Equipment recommendations for discharge: to be determined Equipment issued: Current therapy frequency recommendation(s) in acute: 5 times a week Activity Recommendations for outside of rehab session: 2 person pivot Precautions and Weightbearing Status: OT Existing Precautions/Restrictions: fall Telemetry Patient Safety Communication Prior to Visit: Nursing Subjective: Pt agreeable to OT session, anxious throughout asking if therapist was holding on to her, cooperative with treatment Pain: General Pain Documentation (Adult, OB, Peds) Presence of Pain: denies pain/discomfort Presence of Pain Score (Auto-calculated): 0 Objective/Observation: Vitals/Vitals Responses to Treatment: VSS O2 Device: room air Cognition Overall Cognitive Status: Impaired Arousal/Alertness: Appropriate responses to stimuli Orientation Level: Oriented X4 Following Commands: Follows one step commands with increased time, Follows one step commands with repetition Safety Judgment: Decreased awareness of need for assistance, Decreased awareness of need for safety Awareness of Errors: Assistance required to correct errors made, Assistance required to identify errors made, Decreased awareness of errors Deficits: Decreased awareness of deficits Cognition Comments: anxious behaviors with activity, decreased safety and insight and recall ADL Assessment/Intervention: ADLs: Grooming Assistance: Minimal Grooming Location: standing at sink Grooming Deficit: Activity tolerance, Generalized weakness, Balance, Wash/dry face Grooming Skilled Rationale (Verbal/Tactile/Visual/Demonstrat ion): Supervision, Setup, Facilitate positioning Grooming Intervention/Details: cues for anterior weight shift and upright posture Balance: Sitting Balance Static Sitting-Level of Assistance: Contact guard Skilled Rationale: Verbal cues Standing Balance Static Standing-Level of Assistance: (CGA to mod) Standing-Balance Support: Gait belt, Front-wheeled walker Skilled Rationale: Verbal cues, Tactile cues, Facilitate anterior shift, Full extension to upright positioning/posture Standing Balance Skilled Intervention/Details: Pt completed standing trial at sink x2-3 min with counter for balance support and intermittent 1 hand for functional task. Pt required min to mod A and frequent cues for anterior weight shift for posture during task. Pt then completed standing trial x1 with ww and CGA to min A, multimodal cues for upright posture and anterior weight shift Mobility Assessment/Intervention: Supine to Sit Mobility [place] Level: Supine->Sit: minimum assist (75% patient effort) Bed Features/Set-up: Supine->Sit: Head of bed elevated, Use of bed rail Skilled Rationale: Tactile cues, Verbal cues Skilled Intervention/Details: Supine->Sit: step by step sequencing cues and assist at LEs Transfer Assessment/Intervention: Sit to Stand Transfer [place] Level: Sit->Stand: minimum assist (75% patient effort) Physical Assist: Sit->Stand: (1-2) Assistive Device: Sit->Stand: gait belt (handheld progressing to 2ww) Skilled Rationale: Verbal cues, Tactile cues, Technique of activity Skilled Intervention/Details: Sit->Stand: Pt completed x1 from EOB with bilat arm in arm and then x3 from recliner with cues for hand placement and hands on chair vs ww, cues for anterior weight shift Stand to Sit Transfer [place] Level: Stand->Sit: minimum assist (75% patient effort) Assistive Device: Stand->Sit: gait belt, front-wheeled walker, armed chair Skilled Rationale: Hand placement, Verbal cues, Controlled descent for sitting Skilled Intervention/Details: Stand->Sit: cues for proximity to chair and reaching back to arm rest with fair eccentric control Bed-Chair Transfer [place] Level: Bed<->Chair: moderate assist (50% patient effort) Physical Assist: Bed<->Chair: 2 person assist Assistive Device: Bed<->Chair: gait belt, hand held assist Skilled Rationale: Verbal cues, Tactile cues Skilled Intervention/Details: Bed<->Chair: pivot transfer to left with bilat arm in arm, assist to weight shift bilat to progress feet Functional Mobility: Functional Mobility [place] Level: Functional Mobility/Gait: minimum assist (75% patient effort) Physical Assist: Functional Mobility/Gait: chair follow Assistive Device: Functional Mobility/Gait: gait belt, front-wheeled walker Functional Mobility Distance: (approx 5ft towards bathroom/sink) Functional Mobility Deficits: Activity tolerance, Balance, Slowed gait speed, Decreased step length Functional Mobility Skilled Rationale: Verbal cues, Tactile cues Skilled Intervention/Details - Functional Mobility/Gait: Pt completed with max encouragement, min A and cues for increased step length and progression of ww, close chair follow Outcome Score(s): CURRENT AM-PAC Daily Activity Inpatient Short Form Putting on/Taking Off Lower Body Clothin - Total Assistance Bathin - A Lot of Assistance Toiletin - Total Assistance Putting on/Taking Off Upper Body Clothin - A Little Assistance Groomin - A Little Assistance Eatin - No Assistance CURRENT AM-[facility] Activity Raw Score: 14 CURRENT AM-[facility] Activity Functional Limitation/Modifier: 59.67% Currently Impaired in Daily Activity - CK Assessment & Plan: Pt demonstrates increased activity tolerance, standing balance, I with grooming at sink from previous session and is making good progress towards goals. Pt continues to present with deficits in balance, activity tolerance, cognition and requires 1-2 person assist for ADLs and functional transfer and mobility tasks. Pt requires continued skilled OT services to address functional deficits and maximize safety and independence in ADLs for return home with family assist safely. Patient Instruction/Education this session: Plan for next session: toilet transfers and clothing mgmt during toileting Acute OT Goals Plan of Care by Grace Meyer OT at 11/12/2024 11:45 AM Version 1 of 1 Problem: OT - ADLs Goal: Grooming - Patient will complete grooming in standing with minimal assistance for improved ability to safely complete ADLs. Outcome: Progressing Problem: OT - Transfers Goal: Transfers Sit/Stand - Patient will demonstrate good safety awareness during sit to/from stand functional transfer with minimal assistance and front-wheeled walker to demonstrate safe functional transfers. Outcome: Progressing Problem: OT - Balance Goal: Balance - Standing - Patient will perform 5 minutes of functional task in standing with minimal assistance and fair balance to promote safety and improved balance required for self-care activities. Outcome: Progressing Problem: OT - Endurance Goal: Endurance Functional Mobility - Patient will complete distance needed to access restroom with ww and min A for improved tolerance to safely complete I/ADL's Outcome: Progressing Problem: OT - Cognition Goal: Safety - Patient will demonstrate good safety awareness during ADL routine with 25% or less cues for accuracy. Outcome: Progressing OT treatment consisted of the following to work and progress towards the above goal(s): OT Evaluation and Treatment Time Self Care/Home Management (ADLs) Time Entry: 30 Treating Therapist: Grace Meyer OT Additional Details: OT Co-Eval/Treatment Information Co-evaluation/co-treatment performed?: Yes, simultaneous billable skilled care was necessary due to medical complexity and functional deficits Other discipline: PT Rationale for need to co-eval/treat: cognition, postural control Co-treatment goal focus: self-care PPE used during patient interaction: gloves Patient location at end of session: chair Alarms on at end of session: chair alarm Needs in reach. Time In: 1118 Time Out: 1148 Total Visit Time: 30 minutes Total Treatment Time (skilled, billable minutes): 30 minutes Upon discontinuation of Acute Care Occupational Therapy Services or patient discharge from the hospital this note represents the current Occupational Therapy Discharge Summary. Care Management Progress Note Transportation for discharge arranged Mode of Transfer: (P) [facility] Name of Discharge Transport Company: (P) Other ([facility] Discharge Transport ETA: (P) 11/12/2024 @ 3:00pm Pick-up from 0E 1078/A Destination [address] [address] [facility]ff Care Management Starch Cooker Psychosocial Assessment Per chart review, patient is an 78 year old female who presents with concern for slurred speech/word finding difficulty. Freight Car Builder met with patient to introduce self, explain social work role during the inpatient stay and answer patient questions. Patient was alert and oriented x 4 and agreeable to social work visit. Information Source Information Source Information Source: patient Information Source Name: Sarah Mcguire Information Source Number: [phone] Considerations for the Medical Team: Patient has support from her daughter. Employment Financial Employed?: Retired Employment Details: Patient is retired. Employment/Financial Concerns: no Source Of Income: social security Financial Concerns: none Housing and Utilities: Housing Stability: Not At Risk (11/11/2024) NCSS - Housing/Utilities Has Housing: Yes Worried About Losing Housing: No Unable to Get Utilities: No Food Insecurity: Food Insecurity: No Food Insecurity (11/11/2024) NCSS - Food Insecurity Worried About Running Out of Food in the Last Year: No Ran Out of Food in the Last Year: No Transportation Needs: Transportation Needs: No Transportation Needs (11/11/2024) NCSS - Transportation Lack of Transportation: No Abuse Screen Abuse Screen Do You Feel Unsafe at Home, Work or School?: no Mental Health Mental Health Conditions/Symptoms: none Previous Mental Health Treatment: none Substance Use Past or current substance use by patient: Denied Age at first use: Consequence of use/legal related issues: Positive tox screen: No Cultural, Spiritual, Latter Day Practices Cultural or hoahaoism practices that may impact discharge planning and/or medical care?: No Coping and Stress Concerns Patient Coping/Stress Concerns Patient Coping/Stress Concerns: No Patient Personal Strengths: able to adapt, strong support system, positive attitude, expressive of needs Sources Of Support: adult child(morris) Reaction To Health Status: accepting, adjusting, realistic Understanding Of Condition And Treatment: adequate understanding of medical condition Caregiver Coping/Stress Concerns Caregiver Coping/Stress Concerns: No Primary Caregiver Strengths: resourceful, positive attitude Sources Of Support: unable to assess Reaction To Health Status: unable to assess Understanding Of Condition And Treatment: unable to assess SW Intervention(s) and Recommendation(s): SW met with patient at bedside for SDOH assessment, following trauma screener. Daughter lives with her and is her main support system. Daughter is able to drive patient to appointments. No needs at this time. CHIOMA Quesada Painter Rough 11/11/24 1332 Social Work Screenings Screening patient has qualified for Trauma Patient appropriate for screening? Yes Trauma Screening Were you using substances at the time of the accident? No Is alcohol use a problem? No Interventions Intervention Needed? No CHIOMA Quesada Painter Rough [facility] Medicine Daily Progress Note Patient: Sarah Mcguire, 1945, IMPRESSION / PLAN 78 yo F with h/o HTN, HLD, pAF on eliquis, 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 Word Finding Difficulties: With worsening of speech disturbances (has word finding difficulties at baseline) noted by others during bible study. MRI brain, MRA brain, and MRA neck without evidence of new CVA. - Neurology feels that this is highly concerning for seizures, though no events captured on EEG. - Continue keppra [id number] mg BID Hypertensive Urgency: SBP in 200's on arrival - Escalate lisinopril to 10 mg daily. Orthostatic vitals negative - Will not resume doxazosin and spironolactone - Titrate antihypertensive meds to maintain SBP <160 mmHg while monitoring orthostatic vitals Extradural Fluid Collection: Noted beneath patient's cranioplasty on imaging. - Neurosurgery consulted, who have advised that this is an expected finding after cranioplasty. - Continue holding anticoagulation for at least 2 weeks Paraoxysmal Afib: Chadsvasc 4. - Holding home eliquis for at least 2 weeks per neurosurgery. - Continue home amiodarone, but holding coreg for bradycardia. Sinus bradycardia: Unclear etiology, pt otherwise asymptomatic - Holding home carvedilol as above. Will not continue on discharge. - Continue cardiac monitoring HLD: Continue home statin DVT prophylaxis with SCDs Anticipated Disposition: Pneding PT/OT evaluation Code status is Full Code INTERVAL HISTORY / SUBJECTIVE No acute events overnight. Patient was afebrile, hemodynamically stable, and had appropriate oxygen saturation on RA. Patient denied pain or dyspnea. Daughter was at bedside. Discussed her ongoing plan of care and discharge planning. All questions answered. OBJECTIVE Temp 97.8 F (36.6 C) Pulse 53 Resp 24 BP 155/67 SaO2 98 % Weight PHYSICAL EXAM Gen: A, A, NAD, SILETZ TRIBE ENT: MMM Resp: CTA & P bilat, normal effort Cardio: RRR, normal S1, S2, No TONO GI: S/NT/ND, NABS Psych: Ox3, appropriate affect and cognition DATA REVIEW WBC/Hgb/Hct/Plts: 5.77/10.2/29.3/193 (11/12 435) Na/K+/Phos/Mg/Ca: 130/4.3/--/--/-- (11/12 435) Bun/Creat/Cl/CO2/Glucose: 15/0.93/98/24/95 (11/12 435) [facility] Medicine Daily Progress Note Patient: Sarah Mcguire, 1945, IMPRESSION / PLAN 78 yo F with h/o HTN, HLD, pAF on eliquis, 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 Word Finding Difficulties: With worsening of speech disturbances (has word finding difficulties at baseline) noted by others during bible study. - Neurology feels that this is highly concerning for seizures, though no events captured on EEG. - Follow up MRI brain, MRA brain, and MRA neck. - Transitioning IV to PO keppra, which is likely to be continued at the time of discharge. Extradural Fluid Collection: Noted beneath patient's cranioplasty on imaging. - Neurosurgery consulted, who have advised that this is an expected finding after cranioplasty. - Continue holding anticoagulation for at least 2 weeks Hypertensive Urgency: SBP in 200's on arrival - Escalate lisinopril to 10 mg daily. Will continue to titrate as need to maintain goals. - Discontinue doxazosin and spironolactone - Titrate antihypertensive meds to maintain SBP <160 mmHg while monitoring orthostatic vitals Paraoxysmal Afib: Chadsvasc 4. - Holding home eliquis for at least 2 weeks per neurosurgery. - Continue home amiodarone, but holding coreg for bradycardia. Sinus bradycardia: Unclear etiology, pt otherwise asymptomatic - Holding home carvedilol as above. Will not continue on discharge. - Continue cardiac monitoring HLD: Continue home statin DVT prophylaxis with SCDs Anticipated Disposition: Pneding PT/OT evaluation Code status is Full Code INTERVAL HISTORY / SUBJECTIVE No acute events overnight. Patient was afebrile, hemodynamically stable, and had appropriate oxygen saturation on RA. Patient was leaving to go to MRI. Stayed with daughter and discussed her ongoing plan of care and titration of her blood pressure medications. OBJECTIVE Temp 97.4 F (36.3 C) Pulse 51 Resp 18 BP 171/72 SaO2 100 % Weight PHYSICAL EXAM Gen: A, A, NAD, SI[place] TRIBE ENT: MMM Resp: CTA & P bilat, normal effort Cardio: RRR, normal S1, S2, No TONO GI: S/NT/ND, NABS Psych: Ox3, appropriate affect and cognition DATA REVIEW WBC/Hgb/Hct/Plts: 9.67/11.1/31.4/205 (11/10 338) Na/K+/Phos/Mg/Ca: 132/4.7/--/--/-- (11/10 338) Bun/Creat/Cl/CO2/Glucose: 16/0.78/99/25/96 (11/10 338) Acute Care Speech Therapy Screen Note ? SLEEVE SEPARATOR speech/language/cognitive consult received and chart review completed this date. Pt is admitted with word finding difficulties. Head imaging is non-acute (please see CT imaging for further details.). Patient with hx of meningioma s/p left frontotemporal resection and flap reconstruction (2022) c/b EDH s/p emergent L frontal craniotomy. Patient was seen in 2022 for speech therapy services and has not received further services. Per discussion with RN, patient has returned near baseline. Given this and chronicity of deficits, do not recommend services at this time. If concerns arise, recommend outpatient SLEEVE SEPARATOR services. Time in: 1530 Time out: 1530 Speech-Language Pathologist TERRY Loja Acute Physical Therapy Evaluation Prior Gross Functional Mobility: used device, independent Current AM-PAC score(s): CURRENT AM-PAC Mobility Raw Score: 10 Based on the above AM-PAC score(s) and PT clinical judgment, patient is a good candidate for [facility] to [facility] Barriers to discharge home: Patient needs assistance with functional mobility Mobility equipment available at home: rollator, straight cane ADL equipment available at home: shower chair Equipment needed for discharge: to be determined Current therapy frequency recommendation in acute: PT Therapy Frequency: 5 times a week Activity Recommendations for outside of rehab session: 2 person pivot Precautions and Weightbearing Status: Existing Precautions/Restrictions: fall Patient Safety Communication Prior to Visit: Nursing Subjective: pt was alert and agreeable to participate, pt extremely nervous throughout mobility Pain: General Pain Documentation (Adult, OB, Peds) Presence of Pain: denies pain/discomfort Presence of Pain Score (Auto-calculated): 0 Home Setting Residence: House (1 level with basement) Lives With: alone, children (adult) (daughter is there 80% of the time) Patient receives help from : children (adult) Patient reported support for discharge plannin hour physical assistance, 24 hour supervision First floor setup: bedroom, tub shower (has not been in the tub the past few months, sponge baths) Number of stairs to enter home: 3-4 Stair Railings at Home: entry - with rail Mobility Equipment Available: rollator, straight cane ADL Equipment Available: shower chair Previous Level of Function Gross Functional Mobility: used device, independent Assistive Device: rollator Prior level ADL Overview: Independent with all ADLs (supervise standing bathing task at sink) Dominant Hand: Right Bed Mobility: independent Transfers: independent Stairs: needs assist (supervision/stand by) Ambulation: modified independent with home Prior Level of Function Details: no true falls but can lower self to ground, patient assist with basic IADLs including making light meals and folding laundry, doing dishes Objective/Observation: Vitals/Vitals Responses to Treatment: WFL O2 Device: room air Cognition Overall Cognitive Status: Within Functional Limits Arousal/Alertness: Appropriate responses to stimuli Orientation Level: Oriented X4 Vision Screen Currently wearing corrective lenses: Yes Visual Impairments Observed?: No Speech Speech: no gross deficits noted (daughter reports back to baseline speech this date) Hearing Hearing: hard of hearing Extremity Assessments: RLE Assessment RLE Assessment: Within Functional Limits LLE Assessment LLE Assessment: Within Functional Limits Sensation Overall Sensation: Intact Proprioception Proprioception: intact Skin Integrity Skin Integrity Description: WFL Edema Edema: none noted Mobility Assessment: Supine to Sit Mobility [place] Level: Supine->Sit: moderate assist (50% patient effort) Physical Assist: Supine->Sit: 2 person assist Bed Features/Set-up: Supine->Sit: Head of bed elevated, Use of bed rail Skilled Rationale: Positioning, Hand placement, Verbal cues, Sequencing Skilled Intervention/Details: Supine->Sit: increased time and step by step cues for sequencing Balance: Sitting Balance Static Sitting-Level of Assistance: (contact guard/stand by) Dynamic Sitting-Level of Assistance: Minimum assistance Skilled Rationale: Positioning, Sequencing, Hand placement, Verbal cues, Full extension to upright positioning/posture, Finding/maintaining midline positioning Sitting Balance Skilled Intervention/Details: Pt initially required min assist with forward leaning, able to progress to contact guard/stand by assist Standing Balance Static Standing-Level of Assistance: Minimum assistance, 2-person assist Standing-Balance Support: Gait belt, Hand-held assist Skilled Rationale: Positioning, Sequencing, Hand placement, Verbal cues Standing Balance Skilled Intervention/Details: Pt completed static standing following use of commode and prior to completing transfers with min assist of 2 and arm and arm assist Transfer Assessment: Sit to Stand Transfer [place] Level: Sit->Stand: minimum assist (75% patient effort) Physical Assist: Sit->Stand: 2 person assist Assistive Device: Sit->Stand: gait belt, hand held assist Skilled Rationale: Positioning, Sequencing, Hand placement, Verbal cues Skilled Intervention/Details: Sit->Stand: pt educated in sit to stand transfer with min assist of 2 and arm and arm assist, pt completed sit to stand from EOB and bedside commode Bed-Chair Transfer [place] Level: Bed<->Chair: moderate assist (50% patient effort) Physical Assist: Bed<->Chair: 2 person assist Assistive Device: Bed<->Chair: gait belt, hand held assist Skilled Rationale: Positioning, Sequencing, Hand placement, Verbal cues Skilled Intervention/Details: Bed<->Chair: pt educated in bed to bedside commode and bedside commode to chair transfer with mod assist of 2, arm and arm assist, cues for full trunk and knee extension, assist for weight shifting to complete x 2-3 small, shuffling steps Gait/Functional Mobility: Stairs: Outcome Score(s): CURRENT [facility] Basic Mobility Inpatient Short Form Turning over in bed: 2 - A Lot of Assistance Moving from lying on back to sittin - A Lot of Assistance Moving to and from bed to chair: 2 - A Lot of Assistance Sitting/standing from chair: 2 - A Lot of Assistance Walk in hospital room: 1 - Total Assistance Climbing 3-5 steps with a railin - Total Assistance CURRENT [facility] Mobility Raw Score: 10 CURRENT AM-PAC Mobility Functional Limitation: 76.75% Impaired in Basic Mobility Interventions: Assessment & Plan: Patient was admitted for Epidural hematoma [S06.4XAA] and seen for therapy evaluation related to deficits in functional mobility. Exam findings include impairments in: Strength, Coordination, Balance, Posture, Transfers, Gait/Locomotion, Motor control, Aerobic capacity/endurance, Neuromotor development and sensory integration. These impairments contribute to functional limitations including Decreased ambulation distance/endurance, Ambulation/locomotion pain, Difficulty stair climbing/descent, Increased fall risk, Limited standing tolerance, Difficulty with bed mobility, Difficulty with transfers, Decreased functional mobility. Current clinical presentation is Evolving - changing/inconsistent clinical characteristics (Moderate). Patient history factors impacting Plan Of Care include . Patient will benefit from skilled physical therapy to address these impairments, functional limitations, and participation restrictions and has good rehab potential to achieve therapy goals. Planned Therapy Interventions: balance training, bed mobility training, endurance, functional activity tolerance, gait training, motor coordination training, neuromuscular re-education, postural re-education, strengthening, transfer training Patient Instruction/Education this session: Learners: Patient, Adult Child/Children Education provided: Activity outside of therapy, Discharge recommendations, Fall precautions Teaching method: Audiovisual Learner response: Applies knowledge Learning preferences: Auditory Learning considerations: No barriers/ready to learn Stroke education: Role of rehabilitation discipline Plan for next session: Continue to progress standing balance, endurance and mobiltiy Acute PT Goals Plan of Care by Karen Johnson PT at 11/09/2024 10:35 AM Version 1 of 1 Problem: PT - General Goals Goal: Supine <-> Sit Transfers - Patient will perform supine to/from sit transfers with minimal assistance and with use of hospital bed features in order to improve functional mobility and safety. Outcome: Ongoing Goal: Sit <-> Stand Transfers - Patient will perform sit to/from stand transfers with minimal assistance and least restrictive device in order to improve functional mobility and safety. Outcome: Ongoing Goal: Standing Endurance/Balance - Patient will perform standing balance tasks for 5 min with minimal assistance and least restrictive device Outcome: Ongoing Goal: Ambulation - Patient will ambulate 50 feet with minimal assistance and least restrictive device to improve ability to safely navigate home and community. Outcome: Ongoing PT treatment consisted of the following to progress towards the above goal(s): PT Evaluation and Treatment Time PT Evaluation (Moderate) Time Entry: 30 Evaluating Therapist: Karen Johnson PT Additional Details: PT Co-Eval/Treatment Information Co-evaluation/co-treatment performed?: Yes, simultaneous billable skilled care was necessary due to medical complexity and functional deficits Other discipline: OT Rationale for need to co-eval/treat: postural control, coordination Co-treatment goal focus: balance, mobility Evaluation Complexity Components History: Moderate (1-2 personal factors and/or comorbidities) Body Systems Review: Moderate (Addressing a total of 3 or more elements) Clinical Presentation: Evolving - changing/inconsistent clinical characteristics (Moderate) Clinical Decision Making Complexity: Moderate Time In: 0943 Time Out: 1013 Total Visit Time: 30 minutes Total Treatment Time (skilled, billable minutes): 30 minutes PPE used during patient interaction: gloves Patient location at end of session: chair Alarms on at end of session: chair alarm, RN aware Needs in reach. Upon discontinuation of Acute Care Physical Therapy Services or patient discharge from the hospital this note represents the current Physical Therapy Discharge Summary. Discharge Planning Assessment Is the patient able to participate in the assessment?: Yes Care Management Plan CM met with patient and daughter at bedside, Daughter stated she moved in with patient about a year ago. Daughter assists patient with safety. Current recommendation is for SNF. [facility]. She had been there in the past. CM will initiate referral today. YI TBD. Initial Discharge Planning Expected Discharge Disposition: [facility] Transportation Available for Discharge: Ambulance Anticipated DME: unknown at this time Anticipated Services at Discharge: Physical Therapy, Occupational Therapy, Outpatient follow up, [facility] Patient Assessment Completed: Initial Legal Next of Kin Does the patient have a Guardian?: No Spouse: No Adult Child(morris), List All Adult Children: Yes Name and Contact information: Alexsandra Gascadereje [phone] Reviewed and Updated in Demographics? : Yes Advanced Care Planning Has the patient completed Advance Directives?: Completed, Not Available in Medical Record Copy of Advance Directives was requested?: Yes Advance Directives Requested From: Daughter Medication Management Does the patient have prescription insurance coverage? : Yes Is the patient on Anticoagulation? : Yes Provider or Clinic that manages Anticoagulation?: [facility] [address] [place] [phone] [facility] [address] [facility] [id number] Living Environment and Support System Is the patient from a facility or intermediate?: No Living Environment: House Patient Caregiving Responsibilities: Self Patient-identified caregiver/support network: Family Who does the patient identify as a teachable caregiver(s)?: Child(morris) - Independent Services Does the patient use a home health or hospice agency?: No Current with dialysis?: No Does the patient use any community programs or services?: No Does patient use DME? : walker, rollator, straight cane Would you like to add additional DME providers?: No Does the patient use oxygen?: No Does patient use medical supplies? : none Anticipated Changes Related to Illness/Injury? : Yes Inability to care for self?: Yes Inability to care for dependents?: N/A Inability to return to school/work?: N/A Initial ADLs Prior to Arrival What is the patient's reported baseline physical functioning prior to this acute illness?: independent (Daughter only assisted for safety) What is the patient's reported baseline cognitive functioning prior to this acute illness?: independent (Patient [place]BE and prefers Daughter answer CM questions) Is the patient's baseline functioning changed by this acute illness? : Yes Changes observed : Physical Concerns with patient being able to care for themselves at home? : Yes JEREMI Cast, [employer] Supervisor Available by Secure Chat Acute Occupational Therapy Evaluation Prior Gross Functional Mobility: used device, independent Current AM-PAC score(s): CURRENT AM-PAC Activity Raw Score: 14 Based on the above AM-PAC score(s) and OT clinical judgment, discharge destination recommendation is: [facility] Facility Barriers to discharge home: Patient needs assistance with functional mobility, Patient needs assistance with ADLs, Patient needs assistance with IADLs (see note below) Mobility equipment available at home: rollator, straight cane ADL equipment available at home: shower chair Equipment recommendations for discharge: to be determined Equipment issued: Current therapy frequency recommendation(s) in acute: 5 times a week Activity Recommendations for outside of rehab session: 2 person pivot Precautions and Weightbearing Status: OT Existing Precautions/Restrictions: fall Telemetry Patient Safety Communication Prior to Visit: Nursing Subjective: Pt agreeable to OT session, anxious throughout stating don't let me fall Pain: General Pain Documentation (Adult, OB, Peds) Presence of Pain: denies pain/discomfort Presence of Pain Score (Auto-calculated): 0 Home Setting Residence: House (1 level with basement) Lives With: alone, children (adult) (daughter is there 80% of the time) Patient receives help from : children (adult) Patient reported support for discharge plannin hour physical assistance, 24 hour supervision First floor setup: bedroom, tub shower (has not been in the tub the past few months, sponge baths) Number of stairs to enter home: 3-4 Stair Railings at Home: entry - with rail Mobility Equipment Available: rollator, straight cane ADL Equipment Available: shower chair Previous Level of Function Gross Functional Mobility: used device, independent Assistive Device: rollator Prior level ADL Overview: Independent with all ADLs (supervise standing bathing task at sink) Dominant Hand: Right Bed Mobility: independent Transfers: independent Stairs: needs assist (supervision/stand by) Ambulation: modified independent with home Prior Level of Function Details: no true falls but can lower self to ground, patient assist with basic IADLs including making light meals and folding laundry, doing dishes Objective/Observation: Vitals/Vitals Responses to Treatment: VSS O2 Device: room air Vision Screen Currently wearing corrective lenses: Yes Visual Impairments Observed?: No Speech Speech: no gross deficits noted Hearing Hearing: hard of hearing (hears better out of right ear per pt) Cognition Overall Cognitive Status: Within Functional Limits Arousal/Alertness: Appropriate responses to stimuli Orientation Level: Oriented X4 Following Commands: Follows one step commands with increased time, Follows one step commands with repetition Awareness of Errors: Assistance required to identify errors made, Assistance required to correct errors made Cognition Comments: pt with anxious behaviors throughout ADLs: ADL Assessment: Toileting Deficit ADL Anticipated Performance (ADLs not directly observed this session): Eating, Grooming, Bathing, UE Dressing, LE Dressing Eating Assistance: Independent Grooming Assistance: Stand by Grooming Location: edge of bed Bathing Assistance: Maximal UE Dressing Assistance: Stand by UE Dressing Location: seated in chair LE Dressing Assistance: Total Toilet Assistance: Total Toileting Location: bedside commode Toileting Deficit: Activity tolerance, Generalized weakness, Balance, Grab bar use, Perineal hygiene Toilet Skilled Rationale (Verbal/Tactile/Visual/Demonstrat ion): Supervision, Setup, Facilitate positioning Toileting Intervention/Details: Transferred to and from [facility] with min Ax2 and stood with min Ax2 and required total assist for magdaleno care Extremity Assessments: RUE Assessment RUE Assessment: Within Functional Limits Right UE Assessment Details: grossly 4/5 LUE Assessment LUE Assessment: Within Functional Limits Left UE Assessment Details: grossly 4/5 Balance: Sitting Balance Static Sitting-Level of Assistance: (CGA to SBA) Dynamic Sitting-Level of Assistance: Minimum assistance Skilled Rationale: Tactile cues, Verbal cues, Facilitate anterior shift, Full extension to upright positioning/posture Sitting Balance Skilled Intervention/Details: Pt sat EOB approx 4-5 min prior to transfer to stand. Required initial min A progressing to CGA to SBA once hips positioned forward EOB Standing Balance Static Standing-Level of Assistance: Minimum assistance, 2-person assist Standing-Balance Support: Gait belt, Hand-held assist Skilled Rationale: Verbal cues, Tactile cues Standing Balance Skilled Intervention/Details: Pt completed static standing at EOB/BSC with min Ax2 Neuro: Sensation Overall Sensation: Intact Gross Coordination Gross Coordination: bilat UE intact Skin and Edema: Mobility Assessment: Supine to Sit Mobility [place] Level: Supine->Sit: moderate assist (50% patient effort) Physical Assist: Supine->Sit: 2 person assist Bed Features/Set-up: Supine->Sit: Head of bed elevated Skilled Rationale: Verbal cues Skilled Intervention/Details: Supine->Sit: step by step sequencing cues, increased time, assist at trunk and hips Transfer Assessment: Sit to Stand Transfer [place] Level: Sit->Stand: minimum assist (75% patient effort) Physical Assist: Sit->Stand: 2 person assist Assistive Device: Sit->Stand: gait belt, hand held assist Skilled Rationale: Verbal cues, Tactile cues, Full extension to upright positioning/posture Skilled Intervention/Details: Sit->Stand: Completed x1 from EOB, x1 from BSC, and x1 from recliner. Bilat arm in arm, tactile cues at hips and cues for full upright posture Bed-Chair Transfer [place] Level: Bed<->Chair: moderate assist (50% patient effort) Physical Assist: Bed<->Chair: 2 person assist Assistive Device: Bed<->Chair: gait belt, hand held assist Skilled Rationale: Verbal cues, Tactile cues, Full extension to upright positioning/posture Skilled Intervention/Details: Bed<->Chair: Completed pivot from EOB to BSC and then to recliner chair with bilat arm in arm, tactile cues at hips and assist to weight shift bilat to take steps to left. Functional Mobility: Outcome Score(s): CURRENT [facility] Daily Activity Inpatient Short Form Putting on/Taking Off Lower Body Clothin - Total Assistance Bathin - A Lot of Assistance Toiletin - Total Assistance Putting on/Taking Off Upper Body Clothin - A Little Assistance Groomin - A Little Assistance Eatin - No Assistance CURRENT [facility] Activity Raw Score: 14 CURRENT [facility] Activity Functional Limitation/Modifier: 59.67% Currently Impaired in Daily Activity - CK Assessment & Plan: Patient was admitted for slurred speech/word-finding difficulty and seen for therapy evaluation related to balance, strength, activity tolerance affecting I in ADL/IADLs. Exam findings include impairments in: balance, endurance, pain, posture, strength, transfers. These impairments contribute to occupational performance limitations including bathing, dressing, grooming, toileting, functional mobility, ADL transfers, home management tasks. The following factors impact the plan of care: hx of falls, hx of craniectomy/plasty Patient will benefit from skilled occupational therapy to address these impairments, occupational performance limitations, and participation restrictions. Patient's rehab potential is: good. Planned Therapy Interventions (OT Eval): ADL retraining, IADL retraining, bed mobility training, balance training, caregiver training/education, neuromuscular re-education, strengthening, transfer training Patient Instruction/Education this session: Learners: Patient, Adult Child/Children Education provided: Activity outside of therapy, Balance training, Discharge recommendations, Plan of care, Role of this discipline Teaching method: Verbal Education/Instruction Learner response: Needs review Plan for next session: increased standing tolerance at sink for ADLs Acute OT Goals Plan of Care by Grace Meyer OT at 11/09/2024 10:15 AM Version 1 of 1 Problem: OT - ADLs Goal: Grooming - Patient will complete grooming in standing with minimal assistance for improved ability to safely complete ADLs. Outcome: Ongoing Goal: Toileting - Patient will complete toileting task with moderate assistance and adaptive equipment as needed for improved ability to safely complete self-care activities. Outcome: Ongoing Problem: OT - Transfers Goal: Transfers Sit/Stand - Patient will demonstrate good safety awareness during sit to/from stand functional transfer with minimal assistance and front-wheeled walker to demonstrate safe functional transfers. Outcome: Ongoing Problem: OT - Balance Goal: Balance - Standing - Patient will perform 5 minutes of functional task in standing with minimal assistance and fair balance to promote safety and improved balance required for self-care activities. Outcome: Ongoing Problem: OT - Endurance Goal: Endurance Functional Mobility - Patient will complete distance needed to access restroom with ww and min A for improved tolerance to safely complete I/ADL's Outcome: Ongoing Problem: OT - Cognition Goal: Safety - Patient will demonstrate good safety awareness during ADL routine with 25% or less cues for accuracy. Outcome: Ongoing OT treatment consisted of the following to work and progress towards the above goal(s): OT Evaluation and Treatment Time OT Evaluation (Moderate) Time Entry: 29 Evaluating Therapist: Grace Meyer OT Additional Details: OT Co-Eval/Treatment Information Co-evaluation/co-treatment performed?: Yes, simultaneous billable skilled care was necessary due to medical complexity and functional deficits Other discipline: PT Rationale for need to co-eval/treat: cognition, postural control OT Evaluation Complexity Occupational Profile and Client History: Moderate - expanded history Assessment of Occupational Performance: Moderate (3-5 performance deficits) Clinical Decision/Performance Deficits: Moderate (detailed assessments w/several treatment options) Time In: 0945 Time Out: 1014 Total Visit Time: 29 minutes Total Treatment Time (skilled, billable minutes): 29 minutes PPE used during patient interaction: gloves Patient location at end of session: chair Alarms on at end of session: chair alarm, RN aware Needs in reach. Upon discontinuation of Acute Care Occupational Therapy Services or patient discharge from the hospital this note represents the current Occupational Therapy Discharge Summary. 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 Extradural Fluid Collection: Noted beneath patient's cranioplasty on imaging. - Neurosurgery consulted, who have advised that this is an expected finding after cranioplasty. - Continue holding anticoagulation for at least 2 weeks Word Finding Difficulties: With worsening of speech disturbances (has word finding difficulties at baseline) noted by others during bible study. - Neurology consulted, appreciate recs - Follow up spot EEG for evidence of seizures - Continue keppra 1000 mg IV BID pending further neurology recs Hypertensive Urgency: SBP in 200's on arrival - Continue home spironolactone and doxazosin Paraoxysmal Afib: Chadsvasc 4. - Holding home eliquis for at least 2 weeks per neurosurgery. - Continue home amiodarone, but holding coreg for bradycardia. Sinus bradycardia: Unclear etiology, pt otherwise asymptomatic - Holding home carvedilol as above. Will not continue on discharge. - Continue cardiac monitoring HLD: Continue home statin DVT prophylaxis with SCDs Anticipated Disposition: Pneding PT/OT evaluation Code status is Full Code INTERVAL HISTORY / SUBJECTIVE No acute events overnight. EEG did not record any epileptic events. Patient was afebrile, hemodynamically stable, and had appropriate oxygen saturation on RA. Daughter was present at bedside, discussed her ongoing plan of care and discharge planning. OBJECTIVE Temp 97.5 F (36.4 C) Pulse 52 Resp 22 BP 157/64 SaO2 100 % Weight PHYSICAL EXAM Gen: A, A, NAD, SI[place] TRIBE ENT: MMM Resp: CTA & P bilat, normal effort Cardio: RRR, normal S1, S2, No TONO GI: S/NT/ND, NABS Psych: Ox3, appropriate affect and cognition DATA REVIEW WBC/Hgb/Hct/Plts: 6.17/10.4/28.5/182 (11/10 335) Na/K+/Phos/Mg/Ca: 133/4.2/3.6/1.9/-- (11/10 335) Bun/Creat/Cl/CO2/Glucose: 20/0.97/100/26/110 (11/10 335) Ptt/Pt/Inr: 31.6/14.0/1.1 (11/10 335) 11/07/242022 Social Work Screenings Screening patient has qualified for Trauma Patient appropriate for screening? No - altered mental status JEREMI Keith, INSERTING OPERATOR-[facility], Emergency Dept. Trauma Response Per EMS ([facility]), patient is Sarah Mcguire DOB 41 Family is not present. EMS states daughter is en route. Pastoral presence provided. Rev. Abraham Stokes M.Div., [place], PSYCHIATRIC [phone] (office) Chaplains are available 27/12 by paging [phone]. 11/07/24 1315 Clinical Encounter Type Visited With Health Care Provider;Patient Visit Type Introduction Crisis Visit Trauma Pastoral Time Spent 15 min Referral Automated Page Interventions Provided Active listening;Supportive presence Plan of Care Continue Visiting PRN documented in this encounter [facility] 11-12-2024 Plan of care note Problem: PT - General Goals Goal: Supine <-> Sit Transfers - Patient will perform supine to/from sit transfers with minimal assistance and with use of hospital bed features in order to improve functional mobility and safety. Outcome: Progressing Goal: Sit <-> Stand Transfers - Patient will perform sit to/from stand transfers with minimal assistance and least restrictive device in order to improve functional mobility and safety. Outcome: Progressing Goal: Standing Endurance/Balance - Patient will perform standing balance tasks for 5 min with minimal assistance and least restrictive device Outcome: Progressing Goal: Ambulation - Patient will ambulate 50 feet with minimal assistance and least restrictive device to improve ability to safely navigate home and community. Outcome: Progressing [facility] 11-12-2024 Plan of care note Problem: OT - ADLs Goal: Grooming - Patient will complete grooming in standing with minimal assistance for improved ability to safely complete ADLs. Outcome: Progressing Problem: OT - Transfers Goal: Transfers Sit/Stand - Patient will demonstrate good safety awareness during sit to/from stand functional transfer with minimal assistance and front-wheeled walker to demonstrate safe functional transfers. Outcome: Progressing Problem: OT - Balance Goal: Balance - Standing - Patient will perform 5 minutes of functional task in standing with minimal assistance and fair balance to promote safety and improved balance required for self-care activities. Outcome: Progressing Problem: OT - Endurance Goal: Endurance Functional Mobility - Patient will complete distance needed to access restroom with ww and min A for improved tolerance to safely complete I/ADL's Outcome: Progressing Problem: OT - Cognition Goal: Safety - Patient will demonstrate good safety awareness during ADL routine with 25% or less cues for accuracy. Outcome: Progressing [facility] 11-12-2024 Plan of care note Problem: Adult Inpatient Plan of Care Goal: Optimal Comfort and Wellbeing Intervention: Provide Person-Centered Care Flowsheets (Taken 11/12/2024 0859) Trust Relationship/Rapport: care explained emotional support provided empathic listening provided questions answered T [facility] 11-11-2024 Plan of care note Problem: Adult Inpatient Plan of Care Goal: Plan of Care Review Outcome: Progressing Goal: Patient-Specific Goal (Individualized) Outcome: Progressing Goal: Absence of Hospital-Acquired Illness or Injury Outcome: Progressing Goal: Optimal Comfort and Wellbeing Outcome: Progressing Goal: Readiness for Transition of Care Outcome: Progressing Problem: Mobility Impairment Goal: Optimal Mobility [place] and Safety Outcome: Progressing Problem: Communication Impairment Goal: Effective Communication Skills Outcome: Progressing [facility] 11-10-2024 Nurse Note Orthostatic vitals obtained per MD order. See below: 11/10/24 1642 11/10/24 1644 11/10/24 1702 Vitals ICU/PCU Pulse (Heart Rate) 54 52 59 Heart Rate Source Monitor Monitor Monitor Resp Rate 20 18 24 BP 165/68 186/75 159/71 MAP (mmHg) 98 mmHg 108 mmHg 102 mmHg BP Method Automatic Automatic Automatic BP Location Left arm Left arm Right arm BP Position Lying Sitting Standing Oxygen Therapy O2 Sat (%) 98 % 97 % 98 % [facility] 11-10-2024 Plan of care note Problem: Adult Inpatient Plan of Care Goal: Plan of Care Review Outcome: Progressing Goal: Patient-Specific Goal (Individualized) Outcome: Progressing Goal: Absence of Hospital-Acquired Illness or Injury Outcome: Progressing Goal: Optimal Comfort and Wellbeing Outcome: Progressing Goal: Readiness for Transition of Care Outcome: Progressing Problem: Mobility Impairment Goal: Optimal Mobility [place] and Safety Outcome: Progressing [facility] 11-10-2024 Nurse Note Orthostatic vital signs obtained per MD order. See below. 11/10/24 0822 11/10/24 0827 11/10/24 0838 Vitals ICU/PCU Pulse (Heart Rate) 59 60 61 Heart Rate Source Monitor Monitor Monitor Resp Rate 16 19 19 BP 144/63 154/70 133/61 MAP (mmHg) 91 mmHg 100 mmHg 88 mmHg BP Method Automatic Automatic Automatic BP Location Left arm Left arm Left arm BP Position Lying Sitting Standing Oxygen Therapy O2 Sat (%) 100 % 100 % 98 % O2 Device room air room air room air [facility] 11-09-2024 Plan of care note Problem: Adult Inpatient Plan of Care Goal: Plan of Care Review Outcome: Progressing Goal: Patient-Specific Goal (Individualized) Outcome: Progressing Goal: Absence of Hospital-Acquired Illness or Injury Outcome: Progressing Goal: Optimal Comfort and Wellbeing Outcome: Progressing Goal: Readiness for Transition of Care Outcome: Progressing Problem: PT - General Goals Goal: Supine <-> Sit Transfers - Patient will perform supine to/from sit transfers with minimal assistance and with use of hospital bed features in order to improve functional mobility and safety. Outcome: Progressing Goal: Sit <-> Stand Transfers - Patient will perform sit to/from stand transfers with minimal assistance and least restrictive device in order to improve functional mobility and safety. Outcome: Progressing Goal: Standing Endurance/Balance - Patient will perform standing balance tasks for 5 min with minimal assistance and least restrictive device Outcome: Progressing Goal: Ambulation - Patient will ambulate 50 feet with minimal assistance and least restrictive device to improve ability to safely navigate home and community. Outcome: Progressing Problem: OT - ADLs Goal: Grooming - Patient will complete grooming in standing with minimal assistance for improved ability to safely complete ADLs. Outcome: Progressing Goal: Toileting - Patient will complete toileting task with moderate assistance and adaptive equipment as needed for improved ability to safely complete self-care activities. Outcome: Progressing Problem: OT - Transfers Goal: Transfers Sit/Stand - Patient will demonstrate good safety awareness during sit to/from stand functional transfer with minimal assistance and front-wheeled walker to demonstrate safe functional transfers. Outcome: Progressing Problem: OT - Balance Goal: Balance - Standing - Patient will perform 5 minutes of functional task in standing with minimal assistance and fair balance to promote safety and improved balance required for self-care activities. Outcome: Progressing Problem: OT - Endurance Goal: Endurance Functional Mobility - Patient will complete distance needed to access restroom with ww and min A for improved tolerance to safely complete I/ADL's Outcome: Progressing Problem: OT - Cognition Goal: Safety - Patient will demonstrate good safety awareness during ADL routine with 25% or less cues for accuracy. Outcome: Progressing [facility] 11-09-2024 Plan of care note Problem: PT - General Goals Goal: Supine <-> Sit Transfers - Patient will perform supine to/from sit transfers with minimal assistance and with use of hospital bed features in order to improve functional mobility and safety. Outcome: Ongoing Goal: Sit <-> Stand Transfers - Patient will perform sit to/from stand transfers with minimal assistance and least restrictive device in order to improve functional mobility and safety. Outcome: Ongoing Goal: Standing Endurance/Balance - Patient will perform standing balance tasks for 5 min with minimal assistance and least restrictive device Outcome: Ongoing Goal: Ambulation - Patient will ambulate 50 feet with minimal assistance and least restrictive device to improve ability to safely navigate home and community. Outcome: Ongoing [facility] 11-09-2024 Plan of care note Problem: OT - ADLs Goal: Grooming - Patient will complete grooming in standing with minimal assistance for improved ability to safely complete ADLs. Outcome: Ongoing Goal: Toileting - Patient will complete toileting task with moderate assistance and adaptive equipment as needed for improved ability to safely complete self-care activities. Outcome: Ongoing Problem: OT - Transfers Goal: Transfers Sit/Stand - Patient will demonstrate good safety awareness during sit to/from stand functional transfer with minimal assistance and front-wheeled walker to demonstrate safe functional transfers. Outcome: Ongoing Problem: OT - Balance Goal: Balance - Standing - Patient will perform 5 minutes of functional task in standing with minimal assistance and fair balance to promote safety and improved balance required for self-care activities. Outcome: Ongoing Problem: OT - Endurance Goal: Endurance Functional Mobility - Patient will complete distance needed to access restroom with ww and min A for improved tolerance to safely complete I/ADL's Outcome: Ongoing Problem: OT - Cognition Goal: Safety - Patient will demonstrate good safety awareness during ADL routine with 25% or less cues for accuracy. Outcome: Ongoing [facility] 11-09-2024 Consult note Associated Order (s): IP CONSULT TO GERIATRICS Images from the original note were not included. 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 -PT/OT with evaluation for SNF vs HHC placement -consider consult to cardiology regarding bradycardia and possible relationship to neurologic symptoms -consider reducing dose of doxazosin vs changing antihypertensive regimen +/- cardiology consultation -consider TTE to evaluation murmur, defer to cardiology Jagdish Galindo MD PGY-4 Internal Medicine-Pediatrics [facility] Pager #: [phone] Reason for consult - 78 yo F here as level 2 trauma, acute on chronic subdural hematoma - trauma surgery recs for fatmata c/s for co-mx Admission date and reason - 11/08/24, slurred speech/word finding difficulty Primary Service - 6 PCP - Monika Venegas [facility] - The history was obtained from patient, EMR and adult daughter at bedside. Mrs. Mcguire is an 78 yo F with h/o HTN, HLD, pAF on eliquis, 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 OSH CT head c/f epidural collection, transferred to [facility] as a level 2 trauma due to concern that the patient may have fallen with head strike +/- seizure activity. Interviewed the patient and adult daughter at [facility], and they relate that she was in her usual state of health attending a local Bible study group when her friends noted her speech/word finding difficulty was much worse. She also reported progressive difficulty walking (described as feet feel like lead on the floor). At the time of her admission to [facility], she denied any falls, headaches, extremity weakness, numbness or facial weakness. She did report intermittent lightheadedness but no chest pain, SOB, n/v, abd pain or changes in bowel/urinary habits aside from occasional mild constipation. Patient's NIH score was 1 at OSH, but zero for the flight team. Admitted to the [facility] with neurosurgery consultation, received Kcentra at OSH. Daughter and patient confirm the above information at bedside, adding that the word finding issues have been an ongoing recent problem. 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 Postoperatively, she has become mostly dependant for most of her ADL/IADL (can still fold laundry and make a sandwich, but otherwise requires assistance with everything else on a daily basis). She denies any recent falls, but does report a remote partial fall (slid to the floor) approximately 2-4 weeks ago. States that she was walking with her walker and felt her legs weakening, and had attempted to move to the living room in order to sit on her couch. States that she didn't quite make it and slid down to the floor. She required her neighbor's assistance to regain standing, and was assisted to her couch. Daughter reports that her word finding issue suddenly worsened while at Bible study as above. She did not note any other neurologic deficits. S States that the noted intracranial hematoma appears to be old (I.e. a prior known hematoma collection from 2022 related to a meningioma resection completed at that time). Of note, daughter also reports that they follow with a non-[facility] anatomy professor in their home town, adding that her HR has been much lower than baseline over the past 2-4 weeks. Medications history reviewed with adult daughter, and she is currently taking amiodarone and apixaban for pAF, previously taking 2.5 mg lisinopril but not currently, currently taking doxazosin for HTN, and carvedilol 12.5 mg BID per her anatomy professor. She is taking spironolactone 25 mg daily (previously taking Hydrochlorothiazide, now discontinued at this admission. Daughter denies any other sedating/opioid/anticholinergic medication history. Related to cardiac murmur heard on exam today, they report that she does have a known history of a murmur for several years, but indicated that it has not been further evaluated in the past. Geriatric ROS: Functional status at baseline Basic ADLs - Instrumental ADLs - Current functional status Basic ADLs - Instrumental ADLs - Geriatric Syndromes Cognitive function and memory at baseline - SILETZ TRIBE at baseline, otherwise cognitively intact with normal/appropriate memory Prior history of delirium - None Falls/Mobility - 1 approx one month prior to this admission Sensory impairment - None Sleep habits - Generally sleeping well. Elder Abuse/Neglect -None/denies Review of Systems - See HPI Advanced directive/Code Status - Full, HC surrogate (daughter, Alexsandra Grullon, no POA) Past Medical History: Diagnosis Date High blood cholesterol HTN (hypertension) Past Surgical History: Procedure Laterality Date EVACUATION [...] MD; Location: [facility] FLAP MUSCLE/MYOCUTANEOUS/FASCIOCUTANEO US HEAD OR NECK Left 11/16/2022 Laterality: Left; Surgeon: Saray Key [...] Location: [facility] OR BREAST REDUCTION 1996 BREAST LUMPECTOMY Bilateral HEMORRHOIDECTOMY HYSTERECTOMY Family History Problem Relation Age of Onset Other - Specify Father perferated bowel Social History Socioeconomic History Marital status: Spouse name: Not on file Number of children: Not on file Years of education: Not on file Highest education level: Not on file Occupational History 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 Tobacco Use Smoking status: Never Smokeless tobacco: Never Vaping Use Vaping status: Never Used Substance and Sexual Activity Alcohol use: Not Currently Comment: socially once a year Drug use: Never Sexual activity: Never Other Topics Concern Occupational Exposure No Hobby Hazards No Social History Narrative Not on file Social Drivers of Health Financial Resource Strain: Not on [...] on file Social Connections: Not on file Personal Safety: Not on file Housing Stability: Low Risk (11/18/2022) Housing Stability Vital Sign Unable to Pay for Housing in the Last Year: No Number of Places Lived in the Last Year: 1 Unstable Housing in the Last Year: No Allergies - Patient has no known allergies. Home Medications Reviewed - Current Outpatient Medications Medication Instructions Acetaminophen (TYLENOL) 325 mg, Per NG tube, EVERY 4 HOURS NEEDED AMIOdarone 200 MG tablet No dose, route, or frequency recorded. apixaban (Eliquis) 5 MG tablet No dose, route, or frequency recorded. Atorvastatin (LIPITOR) 10 mg, Oral, DAILY AT BEDTIME carveDILOL (COREG) 12.5 mg, Per NG tube, EVERY 12 HOURS Doxazosin (CARDURA) 2 mg, Oral, Nightly hydroCHLOROthiazide (HYDRODIURIL) 25 mg, Oral, DAILY Lisinopril 2.5 MG tablet No dose, route, or frequency recorded. magnesium Chloride (Mag64) [address] tablet ER No dose, route, or frequency recorded. Spironolactone 25 mg, Oral, DAILY Inpatient Medications Reviewed - AMIOdarone 200 mg Oral Daily [Held by provider] apixaban 2.5 mg Oral Q12H Atorvastatin 10 mg Oral QHS [Held by provider] carveDILOL 12.5 mg Per NG tube Q12H cefTRIAXone 1 g Intravenous Daily Doxazosin 2 mg Oral Nightly levETIRAcetam 1,000 mg Intravenous Q12HNS Polyethylene glycol 17 g Oral Daily Spironolactone 25 mg Oral Daily Acetaminophen, guaiFENesin, hydrALAZINE, Melatonin, Ondansetron 4mg/2ml OR Ondansetron, Senna, Sodium chloride 0.9% Physical Exam Blood pressure 157/64, pulse 52, temperature 97.5 F (36.4 C), temperature source Oral, resp. rate 22, height 1.422 m (4' 8), SpO2 100%. Constitutional: Appears well. SILETZ TRIBE at baseline, No acute distress. Weight appropriate for height. Head: Head symmetric and normocephalic. No evidence of trauma. No deformity. Eyes: Lids without swelling, lesions, or drainage. Conjunctiva clear. PERRLA. ENT: External auditory canals are without swelling or drainage. TM exam deferred.. Nasal mucosa is pink without drainage. There is no maxillary sinus tenderness. Pharynx is non-erythematous and without exudate. Mouth: Tongue and gingiva are pink without lesions. Mildly dry mucosa Neck: Full ROM. No evidence of lymphadenopathy. No asymmetry, deviation, or masses. Lungs/Thorax: Respirations are full and nonlabored. Chest wall without deformity. Lung sounds are clear and equal to auscultation through all marti without adventitious sounds. Percussion normal. Cardiovascular: Bradycardic rate and rhythm. No JVD. II/ systolic murmur throughout precordium, best at LUSB, no radiation, no thrills noted. Carotid, radial, femoral, and pedal pulses are intact and equal. No carotid or aortic bruits. No edema of the extremities. Abdomen: Soft and nontender. Bowel sounds present in all four quadrants. There is no hepatosplenomegaly or other masses. No rebound, guarding, costovertebral angle tenderness, or suprapubic tenderness. No palpable hernias. Lymphatics: No visible or palpable enlargement of anterior cervical, posterior cervical, supraclavicular, supratrochlear, axillary, and inguinal lymph nodes. No tenderness to palpation. Musculoskeletal: All major joints are without swelling, erythema, or bony deformity. Full range of motion of all major joints. Function is grossly intact. Muscular strength is overall normal. Gait not tested. Skin: Inspection and palpation reveal that skin is intact without pathologic lesions, erythema, vesicles, discharge, or significant rash. No evidence of jaundice. Neurological: Cranial nerves II - XII intact. Reflexes normal in all extremities. No sensory or motor deficits. Psychiatry/Mental Health: Alert and oriented to person, place, and time. Affect appropriate. Thought process is normal without evidence of depression or psychosis. Memory grossly intact. Laboratory Data Reviewed Lab Results Component Value Date WBC 6.17 11/09/2024 HGB 10.4 (L) 11/09/2024 HCT 28.5 (L) 11/09/2024 PLATELET 182 11/09/2024 MCV 91.9 11/09/2024 Lab Results Component Value Date SODIUM 133 (L) 11/09/2024 POTASSIUM 4.2 11/09/2024 CHLORIDE 100 11/09/2024 CO2 26 11/09/2024 BUN 20 11/09/2024 CREATSERUM 0.97 11/09/2024 GLUCOSE 110 11/09/[address]-C/spine 11/07/24 IMPRESSION IMPRESSION: No acute fracture or traumatic malalignment. CTH 11/07/24 IMPRESSION IMPRESSION: Status post left-sided craniectomy/cranioplasty. Again present is a predominantly hypoattenuating extra-axial fluid collection deep to the cranioplasty, mildly increased in size since December 2022. There are some indistinctly marginated nodular isoattenuating to mildly hyperattenuating findings along the deep margin of this extra-axial collection that are new from December 2022. This is nonspecific and could represent scarring, blood, or recurrent neoplasm. An MRI brain with and without contrast would offer better characterization of this finding. XR Pelvis, 11/07/24 IMPRESSION IMPRESSION: Osteopenia. Chronic appearing mild widening of the pubic symphysis. No displaced fracture evident. No evidence of acute intraparenchymal hemorrhage, mass effect, or acute large territory infarct. XR chest IMPRESSION IMPRESSION: No displaced fracture. Diffuse centrally predominant bronchial wall thickening and interstitial changes can be seen with inflammatory airways disease or early developing edema. Clinically correlate. MRI Brain/perfusion 07/11/24 IMPRESSION IMPRESSION: Stable posttreatment changes are again seen without evidence of nodular disease recurrence along the resection margins. There is no nodular correlates to areas of mild neuroendocrine radiotracer uptake on the March 14, 2024 PET/CT. Cosigned by Pebbles Gu MD at 11/09/2024 6:50 PM EDT Associated attestation - Pebbles Gu MD - 11/09/2024 6:50 PM EDT Attending Physician Note I interviewed and examined this patient independently I reviewed the history and exam detailed in the note. I agree with the medical decision making with the following comment(s): Ms. Mcguire is an 78 year old admitted for slurred speech and difficulty with word finding. Of note had a fall 1-2 weeks ago. Geriatrics consult for fall evaluation which most likely due to bradycardia and physical deconditioning. Agree with holding beta bright. Would wean off Doxazosin and consider other options for BP management. PT/OT consults to evaluate for SNF needs and CM/SW for safe discharge planning. Thank you for allowing us to participate in the care of this interesting patient. Should you have any questions feel free to call the geriatric consult service. Pebbles Gu MD Interventionist of Clinical Medicine Geriatric Medicine [id number] [facility] Work Phone: 11-09-2024 Consult note Associated Order (s): IP CONSULT TO GERIATRICS Images from the original note were not included. 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 -PT/OT with evaluation for SNF vs HHC placement -consider consult to cardiology regarding bradycardia and possible relationship to neurologic symptoms -consider reducing dose of doxazosin vs changing antihypertensive regimen +/- cardiology consultation -consider TTE to evaluation murmur, defer to cardiology Jagdish Galindo MD PGY-4 Internal Medicine-Pediatrics [facility] Pager #: [phone] Reason for consult - 78 yo F here as level 2 trauma, acute on chronic subdural hematoma - trauma surgery recs for fatmata c/s for co-mx Admission date and reason - 11/08/24, slurred speech/word finding difficulty Primary Service - GM 6 PCP - Monika Venegas [facility] - The history was obtained from patient, EMR and adult daughter at bedside. Mrs. Mcguire is an 78 yo F with h/o HTN, HLD, pAF on eliquis, 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 OSH CT head c/f epidural collection, transferred to [facility] as a level 2 trauma due to concern that the patient may have fallen with head strike +/- seizure activity. Interviewed the patient and adult daughter at [facility], and they relate that she was in her usual state of health attending a local Bible study group when her friends noted her speech/word finding difficulty was much worse. She also reported progressive difficulty walking (described as feet feel like lead on the floor). At the time of her admission to [facility], she denied any falls, headaches, extremity weakness, numbness or facial weakness. She did report intermittent lightheadedness but no chest pain, SOB, n/v, abd pain or changes in bowel/urinary habits aside from occasional mild constipation. Patient's NIH score was 1 at OSH, but zero for the flight team. Admitted to the [facility] with neurosurgery consultation, received Kcentra at OSH. Daughter and patient confirm the above information at bedside, adding that the word finding issues have been an ongoing recent problem. 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 Postoperatively, she has become mostly dependant for most of her ADL/IADL (can still fold laundry and make a sandwich, but otherwise requires assistance with everything else on a daily basis). She denies any recent falls, but does report a remote partial fall (slid to the floor) approximately 2-4 weeks ago. States that she was walking with her walker and felt her legs weakening, and had attempted to move to the living room in order to sit on her couch. States that she didn't quite make it and slid down to the floor. She required her neighbor's assistance to regain standing, and was assisted to her couch. Daughter reports that her word finding issue suddenly worsened while at [facility] study as above. She did not note any other neurologic deficits. S States that the noted intracranial hematoma appears to be old (I.e. a prior known hematoma collection from 2022 related to a meningioma resection completed at that time). Of note, daughter also reports that they follow with a non-[facility] anatomy professor in their home town, adding that her HR has been much lower than baseline over the past 2-4 weeks. Medications history reviewed with adult daughter, and she is currently taking amiodarone and apixaban for pAF, previously taking 2.5 mg lisinopril but not currently, currently taking doxazosin for HTN, and carvedilol 12.5 mg BID per her anatomy professor. She is taking spironolactone 25 mg daily (previously taking Hydrochlorothiazide, now discontinued at this admission. Daughter denies any other sedating/opioid/anticholinergic medication history. Related to cardiac murmur heard on exam today, they report that she does have a known history of a murmur for several years, but indicated that it has not been further evaluated in the past. Geriatric ROS: Functional status at baseline Basic ADLs - Instrumental ADLs - Current functional status Basic ADLs - Instrumental ADLs - Geriatric Syndromes Cognitive function and memory at baseline - SILETZ TRIBE at baseline, otherwise cognitively intact with normal/appropriate memory Prior history of delirium - None Falls/Mobility - 1 approx one month prior to this admission Sensory impairment - None Sleep habits - Generally sleeping well. Elder Abuse/Neglect -None/denies Review of Systems - See HPI Advanced directive/Code Status - Full, HC surrogate (daughter, Alexsandra Grullon, no POA) Past Medical History: Diagnosis Date High blood cholesterol HTN (hypertension) Past Surgical History: Procedure Laterality Date EVACUATION [...] MD; Location: [facility] FLAP MUSCLE/MYOCUTANEOUS/FASCIOCUTANEO US HEAD OR NECK Left 11/16/2022 Laterality: Left; Surgeon: Saray Key [...] Location: [facility] OR BREAST REDUCTION 1996 BREAST LUMPECTOMY Bilateral HEMORRHOIDECTOMY HYSTERECTOMY Family History Problem Relation Age of Onset Other - Specify Father perferated bowel Social History Socioeconomic History Marital status: Spouse name: Not on file Number of children: Not on file Years of education: Not on file Highest education level: Not on file Occupational History 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 Tobacco Use Smoking status: Never Smokeless tobacco: Never Vaping Use Vaping status: Never Used Substance and Sexual Activity Alcohol use: Not Currently Comment: socially once a year Drug use: Never Sexual activity: Never Other Topics Concern Occupational Exposure No Hobby Hazards No Social History Narrative Not on file Social Drivers of Health Financial Resource Strain: Not on [...] on file Social Connections: Not on file Personal Safety: Not on file Housing Stability: Low Risk (11/18/2022) Housing Stability Vital Sign Unable to Pay for Housing in the Last Year: No Number of Places Lived in the Last Year: 1 Unstable Housing in the Last Year: No Allergies - Patient has no known allergies. Home Medications Reviewed - Current Outpatient Medications Medication Instructions Acetaminophen (TYLENOL) 325 mg, Per NG tube, EVERY 4 HOURS NEEDED AMIOdarone 200 MG tablet No dose, route, or frequency recorded. apixaban (Eliquis) 5 MG tablet No dose, route, or frequency recorded. Atorvastatin (LIPITOR) 10 mg, Oral, DAILY AT BEDTIME carveDILOL (COREG) 12.5 mg, Per NG tube, EVERY 12 HOURS Doxazosin (CARDURA) 2 mg, Oral, Nightly hydroCHLOROthiazide (HYDRODIURIL) 25 mg, Oral, DAILY Lisinopril 2.5 MG tablet No dose, route, or frequency recorded. magnesium Chloride (Mag64) [address] tablet ER No dose, route, or frequency recorded. Spironolactone 25 mg, Oral, DAILY Inpatient Medications Reviewed - AMIOdarone 200 mg Oral Daily [Held by provider] apixaban 2.5 mg Oral Q12H Atorvastatin 10 mg Oral QHS [Held by provider] carveDILOL 12.5 mg Per NG tube Q12H cefTRIAXone 1 g Intravenous Daily Doxazosin 2 mg Oral Nightly levETIRAcetam 1,000 mg Intravenous Q12HNS Polyethylene glycol 17 g Oral Daily Spironolactone 25 mg Oral Daily Acetaminophen, guaiFENesin, hydrALAZINE, Melatonin, Ondansetron 4mg/2ml OR Ondansetron, Senna, Sodium chloride 0.9% Physical Exam Blood pressure 157/64, pulse 52, temperature 97.5 F (36.4 C), temperature source Oral, resp. rate 22, height 1.422 m (4' 8), SpO2 100%. Constitutional: Appears well. SILETZ TRIBE at baseline, No acute distress. Weight appropriate for height. Head: Head symmetric and normocephalic. No evidence of trauma. No deformity. Eyes: Lids without swelling, lesions, or drainage. Conjunctiva clear. PERRLA. ENT: External auditory canals are without swelling or drainage. TM exam deferred.. Nasal mucosa is pink without drainage. There is no maxillary sinus tenderness. Pharynx is non-erythematous and without exudate. Mouth: Tongue and gingiva are pink without lesions. Mildly dry mucosa Neck: Full ROM. No evidence of lymphadenopathy. No asymmetry, deviation, or masses. Lungs/Thorax: Respirations are full and nonlabored. Chest wall without deformity. Lung sounds are clear and equal to auscultation through all marti without adventitious sounds. Percussion normal. Cardiovascular: Bradycardic rate and rhythm. No JVD. II/ systolic murmur throughout precordium, best at LUSB, no radiation, no thrills noted. Carotid, radial, femoral, and pedal pulses are intact and equal. No carotid or aortic bruits. No edema of the extremities. Abdomen: Soft and nontender. Bowel sounds present in all four quadrants. There is no hepatosplenomegaly or other masses. No rebound, guarding, costovertebral angle tenderness, or suprapubic tenderness. No palpable hernias. Lymphatics: No visible or palpable enlargement of anterior cervical, posterior cervical, supraclavicular, supratrochlear, axillary, and inguinal lymph nodes. No tenderness to palpation. Musculoskeletal: All major joints are without swelling, erythema, or bony deformity. Full range of motion of all major joints. Function is grossly intact. Muscular strength is overall normal. Gait not tested. Skin: Inspection and palpation reveal that skin is intact without pathologic lesions, erythema, vesicles, discharge, or significant rash. No evidence of jaundice. Neurological: Cranial nerves II - XII intact. Reflexes normal in all extremities. No sensory or motor deficits. Psychiatry/Mental Health: Alert and oriented to person, place, and time. Affect appropriate. Thought process is normal without evidence of depression or psychosis. Memory grossly intact. Laboratory Data Reviewed Lab Results Component Value Date WBC 6.17 11/09/2024 HGB 10.4 (L) 11/09/2024 HCT 28.5 (L) 11/09/2024 PLATELET 182 11/09/2024 MCV 91.9 11/09/2024 Lab Results Component Value Date SODIUM 133 (L) 11/09/2024 POTASSIUM 4.2 11/09/2024 CHLORIDE 100 11/09/2024 CO2 26 11/09/2024 BUN 20 11/09/2024 CREATSERUM 0.97 11/09/2024 GLUCOSE 110 11/09/[address]-C/spine 11/07/24 IMPRESSION IMPRESSION: No acute fracture or traumatic malalignment. CTH 11/07/24 IMPRESSION IMPRESSION: Status post left-sided craniectomy/cranioplasty. Again present is a predominantly hypoattenuating extra-axial fluid collection deep to the cranioplasty, mildly increased in size since December 2022. There are some indistinctly marginated nodular isoattenuating to mildly hyperattenuating findings along the deep margin of this extra-axial collection that are new from December 2022. This is nonspecific and could represent scarring, blood, or recurrent neoplasm. An MRI brain with and without contrast would offer better characterization of this finding. XR Pelvis, 11/07/24 IMPRESSION IMPRESSION: Osteopenia. Chronic appearing mild widening of the pubic symphysis. No displaced fracture evident. No evidence of acute intraparenchymal hemorrhage, mass effect, or acute large territory infarct. XR chest IMPRESSION IMPRESSION: No displaced fracture. Diffuse centrally predominant bronchial wall thickening and interstitial changes can be seen with inflammatory airways disease or early developing edema. Clinically correlate. MRI Brain/perfusion 07/11/24 IMPRESSION IMPRESSION: Stable posttreatment changes are again seen without evidence of nodular disease recurrence along the resection margins. There is no nodular correlates to areas of mild neuroendocrine radiotracer uptake on the March 14, 2024 PET/CT. Cosigned by Pebbles Gu MD at 11/09/2024 6:50 PM EDT Associated attestation - Pebbles Gu MD - 11/09/2024 6:50 PM EDT Attending Physician Note I interviewed and examined this patient independently I reviewed the history and exam detailed in the note. I agree with the medical decision making with the following comment(s): Ms. Mcguire is an 78 year old admitted for slurred speech and difficulty with word finding. Of note had a fall 1-2 weeks ago. Geriatrics consult for fall evaluation which most likely due to bradycardia and physical deconditioning. Agree with holding beta bright. Would wean off Doxazosin and consider other options for BP management. PT/OT consults to evaluate for SNF needs and CM/SW for safe discharge planning. Thank you for allowing us to participate in the care of this interesting patient. Should you have any questions feel free to call the geriatric consult service. Pebbles Gu MD Interventionist of Clinical Medicine Geriatric Medicine [id number] Patient Name: Sarah Mcguire 78 y.o. female Date of Evaluation: 11/07/2024 Trauma Attending: Dr. Leo GARDNER: TRAUMA LEVEL: Level 2 Trauma Inter-facility Transfer: No Sarah Mcguire is a 78 y.o. female transported to [facility] s/p slurred speech and c/f possible head strike earlier this week. Per EMS Slurred speech, unsteady gait while at bible study. PMH intracranial bleed, craniotomy for tumor (2022). 200/60 on EMS arrival. Improved to 170 en route. NIH 1 at OSH but 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 On eliquis at home, patient hard of hearing but GCS 14 one off for confusion on arrival. Pre-hospital Care Provided: imaging HISTORY: [] Unable to obtain due to altered sensorium Allergies: has no known allergies. Home Medications: AMIOdarone, Acetaminophen, Atorvastatin, Doxazosin, Lisinopril, Spironolactone, apixaban, carveDILOL, hydroCHLOROthiazide, and magnesium Chloride Past Medical History: PMH significant for HTN, HLD, and a large frontoparietal meningioma s/p left frontotemporal resection with Dr. Kincaid and a large plastics scalp reconstruction with Dr. Key in 11/2022 c/b an emergent left frontal craniotomy for an epidural hematoma postop 8 days later Past Medical History: Diagnosis Date High blood cholesterol HTN (hypertension) Past Surgical History: per above Past Surgical History: Procedure Laterality Date EVACUATION [...] MD; Location: [facility] MAIN OR FLAP MUSCLE/MYOCUTANEOUS/FASCIOCUTANEO US HEAD OR NECK Left 11/16/2022 Laterality: Left; Surgeon: Saray Key [...] REDUCTION 1997 BREAST LUMPECTOMY Bilateral HEMORRHOIDECTOMY HYSTERECTOMY There is no height or weight on file to calculate BMI. Social History: reports that she has never smoked. She has never used smokeless tobacco. She reports that she does not currently use alcohol. She reports that she does not use drugs. ROS: Hard of hearing but no obvious complaints, states she doesn't have pain or n/v. PRIMARY SURVEY: Airway/C-Spine: Patent, Trachea Midline, Cervical collar in place Breathing/Pulmonary: Spontaneous, Bilateral breath sounds, Equal rise and fall of chest Circulation/Cardiovascular: 2+ and symmetric, No significant bleeding Disability/Neurologic: G.C.S: 4 - Opens eyes on own, 6 - Follows simple motor commands, 5 - Alert and oriented G.C.S. Total: 15 Exposure: Exposure achieved. SECONDARY SURVEY: VS: BP 123/57 Pulse 54 Temp 98.6 F (37 C) (Oral) Resp 23 SpO2 99% Smoking Status Never O2 Sat (%): [97 %-99 %] 99 % O2 Device: room air Neurologic: Awake, alert, follows commands, moves all extremities. PEERL. Motor and sensation grossly intact. Head: Vision and hearing intact. Midface stable. No hyphema, hemotympanum, nasal septal hematoma, malocclusion, loose teeth, blood in mouth. Old post op changes to head with step off on cranium Neck: No midline spine tenderness with palpation, no step offs or deformities, no paraspinal tenderness. No JVD. Back/Flank: No thoracic or lumbar spine tenderness, nontender sacrum. No lacerations, abrasions, ecchymoses. Cardiopulmonary/Chest: Respirations easy and regular, equal rise and fall of chest, no accessory muscle use. Regular rate and rhythm, well perfused with warm extremities. No chest pain with palpation. No lacerations, abrasions or other obvious deformities. GI/Abd: Abdomen soft, non-distended, non-tender to palpation. No lacerations, abrasions or other obvious deformities. /Pelvis: Pelvis stable and nontender to AP compression, no blood from genitalia or rectum. No lacerations, abrasions or other obvious deformities. MSK: Good pulse, motor and sensory to all four extremities. Skin, pink, warm and dry. No lacerations, abrasions or other obvious deformities. Psych: Normal affect. LABS/IMAGING: Recent Labs 11/07/24 1254 11/07/24 1319 WBC 6.74 -- HGB 10.5* -- SODIUM 131* 128* POTASSIUM 4.5 4.3 CO2 21 -- CREATSERUM 0.93 -- INR 1.3* -- CT SPINE CERVICAL WITHOUT CONTRAST Preliminary Result IMPRESSION: No acute fracture or traumatic malalignment. CT HEAD WITHOUT CONTRAST Preliminary Result IMPRESSION: Status post left-sided craniectomy/cranioplasty. Again present is a predominantly hypoattenuating extra-axial fluid collection deep to the cranioplasty, mildly increased in size since 2022. There are some indistinctly marginated nodular isoattenuating to mildly hyperattenuating findings along the deep margin of this extra-axial collection that are new from December 2022. This is nonspecific and could represent scarring, blood, or recurrent neoplasm. An MRI brain with and without contrast would offer better characterization of this finding. No evidence of acute intraparenchymal hemorrhage, mass effect, or acute large territory infarct. XR PELVIS 1-2 VIEWS Final Result IMPRESSION: Osteopenia. Chronic appearing mild widening of the pubic symphysis. No displaced fracture evident. CHEST 1 VIEW PORTABLE Final Result IMPRESSION: No displaced fracture. Diffuse centrally predominant bronchial wall thickening and interstitial changes can be seen with inflammatory airways disease or early developing edema. Clinically correlate. US FAST (Results Pending) TRAUMA CATALOGUE OF INJURIES & INCIDENTAL FINDINGS: Status post left-sided craniectomy/cranioplasty. Again present is a predominantly hypoattenuating extra-axial fluid collection deep to the cranioplasty, mildly increased in size since December 2022. There are some indistinctly marginated nodular isoattenuating to mildly hyperattenuating findings along the deep margin of this extra-axial collection that are new from December 2022. Incidental Findings: ASSESSMENT AND PLAN: The patient was evaluated according to ATLS standards and discussed with the Attending Trauma Surgeon. Time Discussed with Trauma Attending: Dr. Leo Silver Frank is a 78 y.o. s/p slurred speech and possible recent head strike transferred from OSH due to concern for Intracranial bleed, on eliquis, reversed OSH Predominantly hypoattenuating extra-axial fluid collection deep to the cranioplasty, mildly increased in size since December 2022. There are some indistinctly marginated nodular isoattenuating to mildly hyperattenuating findings along the deep margin of this extra-axial collection that are new from December 2022. OSH CTH showed a 1.2 cm epidural collection of fluid, isointense with a heterogenous component that could be concerning for subacute epidural blood, and 6 hour interval CTH was stable. - NSGY consulted: -- No repeat imaging recommended at this time given the 6 hour interval scan was stable (unless patient has a decline on exam) -- Start keppra 1000 mg BID for concern of seizure as etiology of word-finding difficulties -- Recommend a spot EEG -- Maintain INR < 1.4 and PLT > 100 -- SBP < 160 C/F fall/head strike: - Geriatric trauma labs (if not already collected): vitamin D, TSH, UA reflex to culture - Recommend fall workup: orthostatic vital signs, EKG, may require echocardiogram if suspicion for cardiac etiology Goals of Care and Code Status: Code Status on File: Full Code Disposition: NSGY recommending medicine admission [] For all traumatically injured geriatric patients, place geriatrics consult. [] SW/SBIRT order for all traumatically injured patients. [] SICU Admission: Handoff Called to Fellow - Pager [phone] D-ÉG [employer] [phone] If there are any questions or concerns, please see the treatment team or page the Consult Resident #[id number] (Web Exchange, search Acute Care Surgery > Consults - Emergency General Surgery/Trauma Consults) Greta Tabares MD Complexity. Any conditions listed below are present on admission unless otherwise specified.. Cosigned by Smiley Bailey MD, MPH at 11/08/2024 6:22 AM EDT Associated attestation - Smiley Bailey MD, MPH - 11/08/2024 6:22 AM EDT Images from the original note were not included. TRAUMA ATTENDING NOTE I personally saw and examined the patient on 11/07/24 at 1:05pm. All pertinent notes, labs and imaging were discussed, read, and reviewed. All past medical, social and family histories were reviewed and not pertinent to the presenting problem, unless otherwise documented. A review of systems was queried and is negative unless otherwise noted. All effort was exhausted to obtain pertinent information from the patient, available family, medical records, or technical support consultant. I agree with resident exam, assessment and plan and my additional comments are below. In brief, this is a 78 yo F with h/o HTN, HPL, large frontoparietal meningioma s/p left frontotemporal resection and flap reconstruction (2022) c/b EDH s/p emergent L frontal craniotomy post op and XRT who presents with unclear traumatic story. Patient was found to be altered, with slurred speech at bible study, with subsequent reports of hitting her head in the bathroom while washing her hair in the sink before bible study. Patient is on eliquis, unclear indication. Primary intact - HDS, GCS 15. Secondary unremarkable. Labs r/f Hgb 10.5, sodium 131. CXR/PXR negative for injury. CTH with 1.2 cm epidural collection of fluid, isointense with a heterogenous component that could be concerning for subacute epidural blood. Trauma Activation Checklist was utilized: Yes. This patient s admission is complicated by: Blood Loss Anemia and Traumatic SDH/EDH Without Loss of Consciousness. See details in my documentation below. Diagnosis/Plan: # concern for epidural hematoma - NSTY consulted - rCTH stable, keppra BID, spot EEG, INR < 1.4 and PLT > 100, SBP < 160 Disposition from the ED: Medicine with NSGY C/S and ACS tertiary. Given the patient's age > 64, recommend geriatric consult. Signed Smiley Bailey MD MPH home office claim specialist Division of Trauma, Critical Care, Burn Associated Order(s): IP CONSULT TO SURGERY - NEURO Neurosurgery Consult Note Reason for Consultation: subdural HPI Ms. Sarah Mcguire is a 78 y.o. female w/ PMH significant for HTN, HLD, and a large frontoparietal meningioma s/p left frontotemporal resection with Dr. Kincaid and a large plastics scalp reconstruction with Dr. Key in 11/2022 c/b an emergent left frontal craniotomy for an epidural hematoma postop 8 days later who presents to [facility] for an epidural collection observed on OSH CTH in the context of word finding difficulties at her bible study meeting. She denies any headache, nausea, vomiting, numbness, weakness, paresthesias, altered ambulation, changes in vision, difficulty swallowing, changes in speech, changes in bowel/bladder habits, or other focal neurological deficits. She states that her friend group at the bible study wanted her to get checked out the hospital because of her word finding difficulties. She takes eliquis (LD 6/4 AM) and received kcentra at OSH for reversal. ROS: All other systems are negative except as mentioned in HPI Past Medical History: Diagnosis Date High blood cholesterol HTN (hypertension) Past Surgical History: Procedure Laterality Date EVACUATION [...] MD; Location: [facility] OR FLAP MUSCLE/MYOCUTANEOUS/FASCIOCUTANEO US HEAD OR NECK Left 11/16/2022 Laterality: Left; Surgeon: Saray Key [...] REDUCTION 1997 BREAST LUMPECTOMY Bilateral HEMORRHOIDECTOMY HYSTERECTOMY Family History Problem Relation Age of Onset Other - Specify Father perferated bowel Social History Tobacco Use Smoking status: Never Smokeless tobacco: Never Vaping Use Vaping status: Never Used Substance Use Topics Alcohol use: Not Currently Comment: socially once a year Drug use: Never Allergies No Known Allergies Infusions niCARdipine 5 mg/hr (11/07/24 1324) Scheduled Meds levETIRAcetam 1,000 mg Intravenous Q12HNS Tetanus & diphtheria toxoids vaccine 0.5 mL Intramuscular Once PRN Meds: Home Meds Prior to Admission medications Medication Sig Start Date End Date Taking? Authorizing Provider Acetaminophen 325 MG tablet 1 tablet by Per NG tube route every 4 hours as needed for Mild Pain. 12/06/22 LOIS Chairez AMIOdarone 200 MG tablet 01/07/23 Historical Provider apixaban (Eliquis) 5 MG tablet 01/01/23 Historical Provider Atorvastatin 10 MG tablet Take 1 tablet by mouth at bedtime. Historical Provider carveDILOL 12.5 MG tablet 1 tablet by Per NG tube route every 12 hours. 12/06/22 01/05/23 LOIS Chairez Doxazosin 2 MG tablet Take 1 tablet by mouth at bedtime. 01/30/23 Historical Provider hydroCHLOROthiazide 25 MG tablet Take 1 tablet by mouth daily. Historical Provider Lisinopril 2.5 MG tablet 12/29/22 Historical Provider magnesium Chloride (Mag64) [address] tablet ER 01/01/23 Historical Provider Spironolactone 25 MG/5ML Suspension Take 25 mg by mouth daily. 03/20/24 Historical Provider Vitals Temp: [98.6 F (37 C)] 98.6 F (37 C) Pulse (Heart Rate): [60-64] 61 Resp Rate: [14-25] 23 BP: (131-218)/(59-88) 131/59 O2 Sat (%): [98 %-99 %] 98 % Physical General: NAD Cards: no obvious JVD Resp: no stridor or retractions Abd: soft NTND Ext: no edema Mental Status: Awake, alert, oriented x3. Cooperative, follows commands. Language fluent. Cranial Nerves: PERRL, EOMI bilaterally. Facial sensation intact in all 3 branches. Facial movement intact and symmetric. SCM/Trap strength 5/5 bilaterally. Tongue is midline. Motor Function: SA EF EE WF WE FG DI HF KF KE PF DF Right 5 5 5 5 5 5 5 5 5 5 5 5 Left 5 5 5 5 5 5 5 5 5 5 5 5 Sensory Function: Sensation is intact to light touch and painful stimulation throughout. Labs WBC/Hgb/Hct/Plts: 6.74/10.5/33/169 (11/07 1254-11/07 1319) Na/K+/Phos/Mg/Ca: 128/4.3/--/--/-- (11/07 1319) Bun/Creat/Cl/CO2/Glucose: --/--/--/--/102 (11/07 1319) Recent Labs 11/07/24 1254 PT 15.8* INR 1.3* Imaging: XR PELVIS 1-2 VIEWS Final Result IMPRESSION: Osteopenia. Chronic appearing mild widening of the pubic symphysis. No displaced fracture evident. CHEST 1 VIEW PORTABLE Final Result IMPRESSION: No displaced fracture. Diffuse centrally predominant bronchial wall thickening and interstitial changes can be seen with inflammatory airways disease or early developing edema. Clinically correlate. US FAST (Results Pending) CT HEAD WITHOUT CONTRAST (Results Pending) CT SPINE CERVICAL WITHOUT CONTRAST (Results Pending) Pertinent Imaging: OSH CTH / - 1.2 cm thick epidural collection of fluid under the cranioplasty but above the dural layer, no midline shift CTH 6/4 6 hour interval scan - stable without interval progression, no midline shift Pertinent Labs: INR 1.3 (post kcentra), PLT 169 A/P: Sarah Mcguire is a 78 y.o. female w/ PMH significant for a large frontoparietal meningioma s/p left frontotemporal resection with Dr. Kincaid and a large plastics scalp reconstruction with Dr. Key in 11/2022 c/b an emergent left frontal craniotomy for an epidural hematoma postop [address] Salazar who presents to [facility] for an epidural collection observed on OSH CTH in the context of word find difficulties at [facility] study. OSH CTH showed a 1.2 cm epidural collection of fluid, isointense with a heterogenous component that could be concerning for subacute epidural blood, and 6 hour interval CTH was stable. Exam was intact. She received kcentra at OSH because of eliquis. Plan: -- No repeat imaging recommended at this time given the 6 hour interval scan was stable (unless patient has a decline on exam) -- Start keppra 1000 mg BID for concern of seizure as etiology of word-finding difficulties -- Recommend a spot EEG -- Maintain INR < 1.4 and PLT > 100 -- SBP < 160 Staff: Dr. Kincaid Covering: NS1 ([phone]) ## neurosurgery coverage changes at 0530/1730; if 0530 or 1730 has passed since original consult note placed, please page covering pager above ## Complexity. Hyponatremia - Secondary to fluid shifts. Monitor. Hypocalcemia - Continue to monitor and replete. Wound Documentation Any conditions listed below are present on admission unless otherwise specified. . Cosigned by Ernie Kincaid MD at 11/08/2024 9:48 AM EDT documented in this encounter [facility] 11-09-2024 Hospital Discharg e instructions Shannon Werner RN - 11/09/2024 9:18 AM EDT Patient Experience Survey Reminder You may receive a survey in the mail within a few weeks regarding your hospitalization. This helps us to improve the care and services we provide at [facility]. We truly appreciate you taking the time to fill this out. We particularly welcome any specific comments you may have (good or bad!) regarding your experience at [facility] so that we may use them to continue to strive towards excellence for our patients. documented in this encounter [facility] 11-09-2024 Procedure note Associated Ord er(s): GENERAL PROCEDURE Inpatient routine EEG report: History: 78 yo F with h/o HTN, HLD, pAF on eliquis, 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 Indication: evaluate for possible seizure Technical Description: This is a 21-channel digital EEG recording with time-locked video and single-channel electrocardiogram. Electrodes are placed according to the 10 to 20 International System. . The patient was monitored continuously by EEG technicians by video and EEG recording was reviewed intermittently with annotations to the EEG record made . Portions of this record are reviewed using bandpass filters of 1 to 70 Hz and sensitivity of 7mV/mm. EEG DESCRIPTION Background: This recording was obtained during awake and drowsy state. In the maximally alert state, a posterior dominant rhythm was a symmetric, reactive, well-modulated 8-9 Hz with a normal frequency-amplitude gradient over right hemisphere and 6-7 over left hemisphere. During drowsiness, there was attenuation of the waking background. Stage II sleep architecture was not present. Background was comprised of continuous left hemispheric polymorphic theta slow activity. Activation Procedures: none Sporadic Epileptiform Discharges: none Focal slow activity: Continuous left hemispheric polymorphic theta slow activity. Rhythmic or Periodic activity: none Seizures:none Patient Events: none EEG DIAGNOSIS Focal slow activity over left hemisphere CLINICAL INTERPRETATION This routine EEG is indicative of structural lesion over left hemisphere. No epileptiform discharges or seizures were noted during this period of recording. Brittaney Ferraro MD Interventionist Department of Neurology and Epilepsy [facility] Work Phone: 11-09-2024 Procedure note Associated Ord er(s): GENERAL PROCEDURE Inpatient routine EEG report: History: 78 yo F with h/o HTN, HLD, pAF on eliquis, 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 Indication: evaluate for possible seizure Technical Description: This is a 21-channel digital EEG recording with time-locked video and single-channel electrocardiogram. Electrodes are placed according to the 10 to 20 International System. . The patient was monitored continuously by EEG technicians by video and EEG recording was reviewed intermittently with annotations to the EEG record made . Portions of this record are reviewed using bandpass filters of 1 to 70 Hz and sensitivity of 7mV/mm. EEG DESCRIPTION Background: This recording was obtained during awake and drowsy state. In the maximally alert state, a posterior dominant rhythm was a symmetric, reactive, well-modulated 8-9 Hz with a normal frequency-amplitude gradient over right hemisphere and 6-7 over left hemisphere. During drowsiness, there was attenuation of the waking background. Stage II sleep architecture was not present. Background was comprised of continuous left hemispheric polymorphic theta slow activity. Activation Procedures: none Sporadic Epileptiform Discharges: none Focal slow activity: Continuous left hemispheric polymorphic theta slow activity. Rhythmic or Periodic activity: none Seizures:none Patient Events: none EEG DIAGNOSIS Focal slow activity over left hemisphere CLINICAL INTERPRETATION This routine EEG is indicative of structural lesion over left hemisphere. No epileptiform discharges or seizures were noted during this period of recording. Brittaney Ferraro MD Interventionist Department of Neurology and Epilepsy [facility] documented in this encounter [facility] 11-09-2024 Plan of care note Neurosurgery Update: Consulted for fluid under craioplasty. Imaging reviewed which revealed stable extradural fluid under cranioplasty, as expected after procedure. No neurosurgical intervention at this time. - for question of seizures or intermittent altered mental status, recommend neurology evaluation if indicated. Otherwise can continue Keppra for 1 week total. - No neurosurgery follow up needed. - Neurosurgery will sign-off. Please call with questions. Andrew Chopra MD, Neurosurgery NS1 ([phone]) [facility] Work Phone: 11-08-2024 Plan of care note Problem: Adult Inpatient Plan of Care Goal: Plan of Care Review Outcome: Progressing Goal: Patient-Specific Goal (Individualized) Outcome: Progressing Goal: Absence of Hospital-Acquired Illness or Injury Outcome: Progressing Goal: Optimal Comfort and Wellbeing Outcome: Progressing Goal: Readiness for Transition of Care Outcome: Progressing [facility] 11-08-2024 Nurse Note Images from the original note were not included. On admission to [facility], from ED a dual RN initial assessment of skin condition was performed by Shelby Mae RN and Teresa Long RN. Skin Assessment: Skin not within defined limits. - Photo taken and uploaded into notes in IHIS: Yes Brent Score: 16 LDA Added:No Shelby Mae RN Right heel blanchable [facility] 11-08-2024 History and physical note Hospital Medicine Admission History & Physical Patient: Sarah Mcguire, 1945, [id number] Physician: JESSIE Bone [facility], Attending Physician Date of face to face patient encounter: 11/08/2024. IMPRESSION/PLAN 78 yo F with h/o HTN, HLD, pAF on eliquis, 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 Epidural collection on CT head c/f acute on chronic hematoma Word finding difficulties Hx of large meningioma s/p resection and radiation tx - Pt reports worsening of speech disturbances (has word finding difficulties at baseline) noted by others during bible study. Reports trauma to head few days prior (washing hair in sink and hit head on the sink faucet). No LOC/fall. - OSH CT head showed 1.2 cm thick epidural collection of fluid under the cranioplasty but above the dural layer. No midline shift - Repeat CT head here 11/07 - stable with no progression. Epidural collection appears mildly increased compared to imaging in December 2022. Non specific and could represent scarring/blood or recurrent neoplasm - NSGY consulted and concerned that there is a possibility of subacute epidural blood. No intervention recommended and overall findings appear stable compared to prior images. Recommended to hold anticoagulation for at least 2 weeks. - Monitor H/H - Suspect seizure as possible etiology of word-finding difficulties - Follow up spot EEG - Start keppra 1gm IV BID - Neuro consult -> ?need for MRI to further evaluate - Cont NIH assessments and neuro checks. Obtain repeat imaging if any changes. - PT/OT/ST consults Hypertensive urgency - SBP in 200's on arrival - Briefly required cardene gtt -> off on 11/07 - Repeat BP readings improved -> resume home spironolactone. Holding coreg due to bradycardia. Consider addition of nifedipine vs losartan instead pending BP trend. She was taken off lisinopril and thiazides due to hx of hypoNa per daughter - Hydralazine PRN SBP > 160 Sinus bradycardia - Unclear etiology, pt otherwise asymptomatic - HR ranging between 45 bpm - 50 bpm. - Troponins negative - Hold home BB - Keep on tele monitoring Paraoxysmal Afib - Chadsvasc 4 - Pt is on eliquis, she received Kcentra at OSH prior to arrival. HOLD for now per NSGY recs (Atleast 2 weeks). - cont home amiodarone HLD - cont home statin DVT prophylaxis with SCD's Disposition: pending pt/ot eval Code status is full CHIEF COMPLAINT Word finding difficulties x 1 day HISTORY OF PRESENT ILLNESS 78 yo F with h/o HTN, HLD, pAF on eliquis, 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 OSH CT head c/f epidural collection - pt was brought here via med flight as level 2 trauma. Pt reports being in her usual state of health, her friends noted her speech/word finding difficulty was much worse at her bible study. She also reports difficulty walking (feet feel like lead on the floor). Denies any falls, headaches, extremity weakness, numbness or facial weakness. Has intermittent lightheadedness but no chest pain, SOB, n/v, abd pain or changes in bowel/urinary habits (other than occasional constipation) NIH 1 at OSH but 0 for medflight. NSGY consulted here and repeat CT head done - suspect possible subacute on chronic hematoma, but no intervention recommended. K centra given at OSH. Suspect seizure contributed to current episode and started on IV keppra BID. Plan to admit to [facility]. REVIEW OF SYSTEMS Constitutional (- fever, chills, weight changes) Eyes (negative for vision changes) ENT (- ringing, loss of hearing) Cardiovascular (no LE edema or leg pain with walking, denies PND, orthopnea) Respiratory (no cough, SOB) Gastrointestinal (no abd pain, +ve constipation, diarrhea) Genitourinary (- dysuria, gross hematuria) Integumentary (no rash) Musculoskeletal (no joint deformity, joint pains) Psych: no depressed mood MEDICAL HISTORY Past Medical History: Diagnosis Date High blood cholesterol HTN (hypertension) Past Surgical History: Procedure Laterality Date EVACUATION [...] MD; Location: [facility] MA[facility] OR FLAP MUSCLE/MYOCUTANEOUS/FASCIOCUTANEO US HEAD OR NECK Left 11/16/2022 Laterality: Left; Surgeon: Saray Key [...] Location: [facility] MAIN OR BREAST REDUCTION 1996 BREAST LUMPECTOMY Bilateral HEMORRHOIDECTOMY HYSTERECTOMY SOCIAL HISTORY Social History Tobacco Use Smoking status: Never Smokeless tobacco: Never Substance Use Topics Alcohol use: Not Currently Comment: socially once a year Social History Substance and Sexual Activity Drug Use Never FAMILY HISTORY family history includes Other - Specify in her father. MEDICATIONS Prior to Admission Medications Prescriptions Last Dose Informant Patient Reported? Taking? AMIOdarone 200 MG tablet Yes No Acetaminophen 325 MG tablet No No Si tablet by Per NG tube route every 4 hours as needed for Mild Pain. Atorvastatin 10 MG tablet Yes No Sig: Take 1 tablet by mouth at bedtime. Doxazosin 2 MG tablet Yes No Sig: Take 1 tablet by mouth at bedtime. Lisinopril 2.5 MG tablet Yes No Spironolactone 25 MG/5ML Suspension Yes No Sig: Take 25 mg by mouth daily. apixaban (Eliquis) 5 MG tablet Yes No carveDILOL 12.5 MG tablet No No Si tablet by Per NG tube route every 12 hours. hydroCHLOROthiazide 25 MG tablet Yes No Sig: Take 1 tablet by mouth daily. magnesium Chloride (Mag64) [address] tablet ER Yes No Facility-Administered Medications: None ALLERGIES No Known Allergies PHYSICAL EXAM Vitals: 11/08/24 1345 BP: 134/61 Pulse: 50 Resp: 24 Temp: SpO2: 100% O2 Device: room air (11/07/24 1845) Gen: Comfortable appearing, no apparent distress. Noted L sided skull deformity c/w prior craniotomy hx Eyes: Anicteric Neck: No visible JVD ENT: MMM Resp: normal respiratory effort, CTA & P bilaterally, no other adventitious sounds. Cardio: RRR, normal S1, S2, No TONO GI: non distended, soft, non tender, normal abdominal bowel sounds Neuro: awake & alert. No focal deficits. Noted slow speech/word finding difficulties. Strength grossly equal in muscle groups of the bilateral UEs and LEs. Psych: O X 3, appropriate affect and cognition Skin: warm and dry. No rash or erythema. DATA REVIEW There is no height or weight on file to calculate BMI. Imaging: OSH CTH 11/07 - 1.2 cm thick epidural collection of fluid under the cranioplasty but above the dural layer, no midline shift CTH 11/07 6 hour interval scan - stable without interval progression, no midline shift ECG: Sinus bradycardia, no ST segment changes Signed, JESSIE Bone [facility] Interventionist of Internal Medicine Division of Hospital Medicine [facility], [facility] 11-08-2024 History and physical note Hospital Medicine Admission History & Physical Patient: Sarah Mcguire, 1945, [id number] Physician: JESSIE Bone [facility], Attending Physician Date of face to face patient encounter: 11/08/2024. IMPRESSION/PLAN 78 yo F with h/o HTN, HLD, pAF on eliquis, 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 Epidural collection on CT head c/f acute on chronic hematoma Word finding difficulties Hx of large meningioma s/p resection and radiation tx - Pt reports worsening of speech disturbances (has word finding difficulties at baseline) noted by others during bible study. Reports trauma to head few days prior (washing hair in sink and hit head on the sink faucet). No LOC/fall. - OSH CT head showed 1.2 cm thick epidural collection of fluid under the cranioplasty but above the dural layer. No midline shift - Repeat CT head here 11/07 - stable with no progression. Epidural collection appears mildly increased compared to imaging in December 2022. Non specific and could represent scarring/blood or recurrent neoplasm - NSGY consulted and concerned that there is a possibility of subacute epidural blood. No intervention recommended and overall findings appear stable compared to prior images. Recommended to hold anticoagulation for at least 2 weeks. - Monitor H/H - Suspect seizure as possible etiology of word-finding difficulties - Follow up spot EEG - Start keppra 1gm IV BID - Neuro consult -> ?need for MRI to further evaluate - Cont NIH assessments and neuro checks. Obtain repeat imaging if any changes. - PT/OT/ST consults Hypertensive urgency - SBP in 200's on arrival - Briefly required cardene gtt -> off on 11/07 - Repeat BP readings improved -> resume home spironolactone. Holding coreg due to bradycardia. Consider addition of nifedipine vs losartan instead pending BP trend. She was taken off lisinopril and thiazides due to hx of hypoNa per daughter - Hydralazine PRN SBP > 160 Sinus bradycardia - Unclear etiology, pt otherwise asymptomatic - HR ranging between 45 bpm - 50 bpm. - Troponins negative - Hold home BB - Keep on tele monitoring Paraoxysmal Afib - Chadsvasc 4 - Pt is on eliquis, she received Kcentra at OSH prior to arrival. HOLD for now per NSGY recs (Atleast 2 weeks). - cont home amiodarone HLD - cont home statin DVT prophylaxis with SCD's Disposition: pending pt/ot eval Code status is full CHIEF COMPLAINT Word finding difficulties x 1 day HISTORY OF PRESENT ILLNESS 78 yo F with h/o HTN, HLD, pAF on eliquis, 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 OSH CT head c/f epidural collection - pt was brought here via med flight as level 2 trauma. Pt reports being in her usual state of health, her friends noted her speech/word finding difficulty was much worse at her bible study. She also reports difficulty walking (feet feel like lead on the floor). Denies any falls, headaches, extremity weakness, numbness or facial weakness. Has intermittent lightheadedness but no chest pain, SOB, n/v, abd pain or changes in bowel/urinary habits (other than occasional constipation) NIH 1 at OSH but 0 for medflight. NSGY consulted here and repeat CT head done - suspect possible subacute on chronic hematoma, but no intervention recommended. K centra given at OSH. Suspect seizure contributed to current episode and started on IV keppra BID. Plan to admit to [facility]. REVIEW OF SYSTEMS Constitutional (- fever, chills, weight changes) Eyes (negative for vision changes) ENT (- ringing, loss of hearing) Cardiovascular (no LE edema or leg pain with walking, denies PND, orthopnea) Respiratory (no cough, SOB) Gastrointestinal (no abd pain, +ve constipation, diarrhea) Genitourinary (- dysuria, gross hematuria) Integumentary (no rash) Musculoskeletal (no joint deformity, joint pains) Psych: no depressed mood MEDICAL HISTORY Past Medical History: Diagnosis Date High blood cholesterol HTN (hypertension) Past Surgical History: Procedure Laterality Date EVACUATION [...] MD; Location: [facility] FLAP MUSCLE/MYOCUTANEOUS/FASCIOCUTANEO US HEAD OR NECK Left 11/16/2022 Laterality: Left; Surgeon: Saray Key [...] Location: [facility] MAIN OR BREAST REDUCTION 1996 BREAST LUMPECTOMY Bilateral HEMORRHOIDECTOMY HYSTERECTOMY SOCIAL HISTORY Social History Tobacco Use Smoking status: Never Smokeless tobacco: Never Substance Use Topics Alcohol use: Not Currently Comment: socially once a year Social History Substance and Sexual Activity Drug Use Never FAMILY HISTORY family history includes Other - Specify in her father. MEDICATIONS Prior to Admission Medications Prescriptions Last Dose Informant Patient Reported? Taking? AMIOdarone 200 MG tablet Yes No Acetaminophen 325 MG tablet No No Si tablet by Per NG tube route every 4 hours as needed for Mild Pain. Atorvastatin 10 MG tablet Yes No Sig: Take 1 tablet by mouth at bedtime. Doxazosin 2 MG tablet Yes No Sig: Take 1 tablet by mouth at bedtime. Lisinopril 2.5 MG tablet Yes No Spironolactone 25 MG/5ML Suspension Yes No Sig: Take 25 mg by mouth daily. apixaban (Eliquis) 5 MG tablet Yes No carveDILOL 12.5 MG tablet No No Si tablet by Per NG tube route every 12 hours. hydroCHLOROthiazide 25 MG tablet Yes No Sig: Take 1 tablet by mouth daily. magnesium Chloride (Mag64) [address] tablet ER Yes No Facility-Administered Medications: None ALLERGIES No Known Allergies PHYSICAL EXAM Vitals: 11/08/24 1345 BP: 134/61 Pulse: 50 Resp: 24 Temp: SpO2: 100% O2 Device: room air (11/07/24 1845) Gen: Comfortable appearing, no apparent distress. Noted L sided skull deformity c/w prior craniotomy hx Eyes: Anicteric Neck: No visible JVD ENT: MMM Resp: normal respiratory effort, CTA & P bilaterally, no other adventitious sounds. Cardio: RRR, normal S1, S2, No TONO GI: non distended, soft, non tender, normal abdominal bowel sounds Neuro: awake & alert. No focal deficits. Noted slow speech/word finding difficulties. Strength grossly equal in muscle groups of the bilateral UEs and LEs. Psych: O X 3, appropriate affect and cognition Skin: warm and dry. No rash or erythema. DATA REVIEW There is no height or weight on file to calculate BMI. Imaging: OSH CTH 11/07 - 1.2 cm thick epidural collection of fluid under the cranioplasty but above the dural layer, no midline shift CTH 11/07 6 hour interval scan - stable without interval progression, no midline shift ECG: Sinus bradycardia, no ST segment changes Signed, JESSIE Bone [facility] Interventionist of Internal Medicine Division of Hospital Medicine [facility], [facility] documented in this encounter [facility] 11-08-2024 Emergency department Note Pt has been germania- HR 42-49. Dr Johnson aware. No intervention as long at pt is saturating appropriately [facility] 11-08-2024 Emergency department Note Pt has been germania- HR 42-49. Dr Johnson aware. No intervention as long at pt is saturating appropriately Per Dr Johnson, pt is allowed to eat. Pt given breakfast. Pt passed bedside swallow. Pt incontinent at this time. Total linen change, new brief and purwick in place. Pt states dull pain across forehead that is new, no changes in neuro exam. Md notified Transport to CT on monitor with RN, Resident. eMERGENCY dEPARTMENT eNCOUnter Patient: Sarah Mcguire : 1945 MR#: [id number] Primary Care Provider: Monika Venegas Date of Exam: 11/07/2024 CHIEF COMPLAINT No chief complaint on file. HPI Sarah Mcguire is a 78 y.o. 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, hypertension, hyperlipidemia presents to [facility] as a level 2 trauma transfer via medflight for subdural hematoma. Brief History: Patient had slurred speech, unsteady gait while at bible study. EMS report patient hit her head at faucet when trying to wash her hair, LKW 10.21am. Blood pressure was 200/60 on EMS arrival. Improved to 170 en route. NIH 1 at OSH but 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 Patient on eliquis, Balfaxar given at OSH. C-collar placed upon arrival to [facility] ED. The patient was evaluated using standard ATLS protocols with assistance from trauma surgery service. Cervical spine precautions were maintained throughout primary and secondary surveys. TRAUMA INFORMATION Trauma Level Time of Alert: 1251 Trauma Level: level 2 Pre-Arrival Treatment Pre-Arrival Treatment: hospital transfer [facility] Ar[facility] By: helicopter PAST MEDICAL HISTORY Past Medical History: Diagnosis Date High blood cholesterol HTN (hypertension) SURGICAL HISTORY Past Surgical History: Procedure Laterality Date EVACUATION [...] MD; Location: [facility] MAIN OR FLAP MUSCLE/MYOCUTANEOUS/FASCIOCUTANEO US HEAD OR NECK Left 11/16/2022 Laterality: Left; Surgeon: Saray Key [...] REDUCTION 1997 BREAST LUMPECTOMY Bilateral HEMORRHOIDECTOMY HYSTERECTOMY CURRENT MEDICATIONS Current Outpatient Medications Medication Sig Acetaminophen 325 MG tablet 1 tablet by Per NG tube route every 4 hours as needed for Mild Pain. AMIOdarone 200 MG tablet apixaban (Eliquis) 5 MG tablet Atorvastatin 10 MG tablet Take 1 tablet by mouth at bedtime. carveDILOL 12.5 MG tablet 1 tablet by Per NG tube route every 12 hours. Doxazosin 2 MG tablet Take 1 tablet by mouth at bedtime. hydroCHLOROthiazide 25 MG tablet Take 1 tablet by mouth daily. Lisinopril 2.5 MG tablet magnesium Chloride (Mag64) [address] tablet ER Spironolactone 25 MG/5ML Suspension Take 25 mg by mouth daily. 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 Tobacco Use Smoking status: Never Smokeless tobacco: Never Vaping Use Vaping status: Never Used Substance and Sexual Activity Alcohol use: Not Currently Comment: socially once a year Drug use: Never Sexual activity: Never Other Topics Concern Occupational Exposure No Hobby Hazards No Social History Narrative Not on file Social Drivers of Health Financial Resource Strain: Not on [...] on file Social Connections: Not on file Personal Safety: Not on file Housing Stability: Low Risk (11/18/2022) Housing Stability Vital Sign Unable to Pay for Housing in the Last Year: No Number of Places Lived in the Last Year: 1 Unstable Housing in the Last Year: No PHYSICAL EXAM VITAL SIGNS: BP 200/70 Pulse 64 Temp 98.6 F (37 C) (Oral) Resp 20 SpO2 98% Smoking Status Never [place] Coma Scale Best Eye Response: 4-->(E4) spontaneous Best Motor Response: 6-->(M6) obeys commands Best Verbal Response: 5-->(V5) oriented [place] Coma Scale Score: 15 Primary Assessment Airway Airway (WDL): Within Defined Limits C-Spine Protections: c-collar applied (on arrival) Breathing Breathing (WDL): Within Defined Limits Chest Assessment: Trachea midline O2 Sat (%): 98 % O2 Device: room air Circulation Circulation (WDL): Within Defined Limits Radial Pulses: Assessed Left Radial Pulse: 2+ (normal) Right Radial Pulse: 2+ (normal) Femoral Pulses: Assessed Left Femoral Pulse: 2+ (normal) Right Femoral Pulse: 2+ (normal) Dorsalis Pedis Pulses: Assessed Left Dorsalis Pedis Pulse: 2+ (normal) Right Dorsalis Pedis Pulse: 2+ (normal) Back Back (WDL): Within Defined Limits Log Roll With C-Spine Precautions: yes Back Deformity: negative Step Offs: negative Rectal Tone: deferred Secondary Assessment Head/Face Head/Face Assessment: WDL Except Head/Face: (S) (post operative changes in occipital region, s/p craniotomy in 2022) Mouth and Throat Assessment: Brief WDL Neck NECK (WDL): Within Defined Limits (c-collar applied on arrival) Chest Chest (WDL): Within Defined Limits Abdomen Abdomen (WDL): (S) Exceptions to WDL (left lower abdominal pain with palpation) Genito-Urinary Genito-Urinary (WDL): Within Defined Limits Rectal Tone: deferred Pelvis Pelvis (WDL): Within Defined Limits Extremities Extremities (WDL): Within Defined Limits Results for orders placed or performed during the hospital encounter of 11/07/24 CBC AND ELECTRONIC DIFF Result Value Ref Range WBC Count 6.74 3.99 - 11.19 K/uL RBC Count 3.17 (L) 3.91 - 5.04 M/uL Hemoglobin 10.5 (L) 11.4 - 15.2 g/dL Hematocrit 29.0 (L) 34.9 - 44.3 % Mean Cell Volume 91.5 79.6 - 97.7 fL Mean Cell Hgb 33.1 25.9 - 33.9 pg Mean Cell Hgb Conc 36.2 (H) 31.4 - 35.9 g/dL RBC Distribution 13.1 10.8 - 14.9 % Platelet Count 169 150 - 393 K/uL Mean Platelet Volume 10.0 8.5 - 12.2 fL DIFF STATUS Electronic Differential Segs + Bands Auto 79.5 % Immature Grans % 0.4 % Lymphocyte % Auto 10.2 % Monocyte % Auto 9.2 % Eosinophil % Auto 0.4 % Basophil % Auto 0.3 % Nucleated RBC 0.0 <=0.2 /100 WBC Segs + Bands,Absolute Auto 5.35 1.64 - 7.28 K/uL Immature Grans Absolute <0.04 <=0.08 K/uL Abs Lymph Auto 0.69 (L) 1.16 - 3.51 K/uL Abs Panola Auto 0.62 0.22 - 0.87 K/uL Abs Eos Auto <0.04 0.00 - 0.42 K/uL Abs Baso Auto <0.04 0.00 - 0.15 K/uL VENOUS BLOOD GAS (FULL PANEL) Result Value Ref Range pH, Venous 7.48 (H) 7.32 - 7.43 pCO2, Venous 29 (L) 36 - 52 mm Hg pO2, Venous 106 mm Hg HCO3, Venous 22 22 - 29 mmol/L sO2 (O2 Saturation), Venous 99 (H) 70 - 80 % Base Excess -1.9 -3.0 - 3.0 mmol/L Glucose, Whole Blood 102 Nonfasting Glucose: 70-179 mg/dL Lactate, Whole Blood 0.7 0.5 - 1.6 mmol/L Sodium, Whole Blood 128 (L) 135 - 145 mmol/L Potassium, Whole Blood 4.3 3.5 - 5.0 mmol/L Ionized Calcium, Whole Blood 4.45 (L) 4.60 - 5.30 mg/dL Total Hemoglobin 11.1 (L) 11.4 - 15.2 g/dL Hematocrit (Calculated) 33 (L) 34 - 46 % Oxyhemoglobin 96 94 - 98 % Carboxyhemoglobin 1.6 (H) <=1.5 % Methemoglobin 1.1 <=1.5 % Specimen Type Venous ED US FAST (Results Pending) XR CHEST 1 VIEW PORTABLE (Results Pending) XR PELVIS 1-2 VIEWS (Results Pending) CT HEAD WITHOUT CONTRAST (Results Pending) CT SPINE CERVICAL WITHOUT CONTRAST (Results Pending) Vitals: 11/07/24 1309 11/07/24 1320 BP: 200/70 Pulse: 62 64 Resp: 18 20 Temp: 98.6 degrees F (37 degrees C) TempSrc: Oral SpO2: 98% 98% ED COURSE & MEDICAL DECISION MAKING Medical Decision Making Amount and/or Complexity of Data Reviewed Labs: ordered. Radiology: ordered. ECG/medicine tests: ordered. Sarah Mcguire is a 78 y.o. female, who presents as a trauma alert. Standard ATLS protocols were followed with assistance from the trauma surgery service. Initial evaluation significant for acute on chronic subd. Differential includes but is not limited to acute intracranial, intra-abdominal, intra-thoracic, spinal pathology and/or injury, fracture to skull, facial bones. Pertinent labs & imaging studies reviewed. Cervical spine clearance per trauma service. Continuous cardiovascular monitoring. Trauma labs obtained, including T&C, coags, CBC, chemistries. Volume resuscitation was not necessary as the patient was hemodynamically stable Trauma imaging: CT: head and cervical spine XR: chest and pelvis tetanus was updated as last tetanus unknown Will consult neurosurgery. Will place geriatrics consult. ED Course as of 11/08/24 1502 Wed Nov 07, 2024 1347 Neurosurgery at bedside, BP goal systolic < 160. Seizure prophylaxis with keppra 1000 bid. possible admission to their service pending discussion with team, will reach out with further recommendations 1347 Patient on eliquis, 2500units of balfaxar given at OSH. INR 1.3 Donita Nov 08, 2024 1501 SO: hx of meningioma w/ craniotomy, acute on chronic subdural, NSGY following, admitted to medicine Disposition Admitted to medicine A [id number] dictation tool was used in the production of this document and all attempts were made for proper editing but errors may occur. Cindy Coffey MD Resident 11/07/24 1654 Bed: E021 Expected date: Expected time: Means of arrival: Comments: 34 Department of Pharmacy - Trauma Note Patient: Sarah Mcguire Room/Bed: E034/E034 Level 2 trauma s/p Fall with SDH found at OSH Medications received prior to arrival: Balfaxar 2500 units @1130 Prophylactic Antibiotics: n/a Tetanus: N/A Patient is on eliquis. Please feel free to contact me with any further questions. Name: Octavio Pinon RPH Phone #: [phone] Date/Time: 11/07/2024 1:29 PM ED ATTENDING NOTE Please see resident notes from this encounter for additional information. I saw and examined the patient. I discussed the history and examination with the resident and agree with the plan of care unless otherwise indicated. RELEVANT HPI: Sarah Mcguire is a 78 y.o. female has a past medical history of High blood cholesterol and HTN (hypertension). She has no past medical history of History of chemotherapy, History of radiation therapy, or Pacemaker.; she presents with chief complaint of No chief complaint on file. Patient presents with known SDH. Patient presents as level 2 trauma activation per trauma team. Report to them from physician at OSH was of a head strike on the faucet while the patient was washing her hair. EMS was not told of any traumatic injury. They were told LKW 1021 and patient had new slurred speech; NIH 1. Patient was alert, oriented with normal speech, and no weakness for medics en route and in general stable. No c collar given lack of trauma in report to them. C collar was applied upon arrival. Patient is in no acute distress and corroborates the story including noting that she is unsure if she hit her head or not. EMS also notes patient had a craniotomy but other than that known deformity that appears chronic there were no reported signs of head trauma. PERTINENT EXAM: Vital Signs: BP 200/70 Pulse 64 Temp 98.6 F (37 C) (Oral) Resp 20 SpO2 98% Smoking Status Never Catina Coma Scale Best Eye Response: 4-->(E4) spontaneous Best Motor Response: 6-->(M6) obeys commands Best Verbal Response: 5-->(V5) oriented Catina Coma Scale Score: 15 Primary Assessment Airway Airway (WDL): Within Defined Limits C-Spine Protections: c-collar applied (on arrival) Breathing Breathing (WDL): Within Defined Limits Chest Assessment: Trachea midline O2 Sat (%): 98 % O2 Device: room air Circulation Circulation (WDL): Within Defined Limits Radial Pulses: Assessed Left Radial Pulse: 2+ (normal) Right Radial Pulse: 2+ (normal) Femoral Pulses: Assessed Left Femoral Pulse: 2+ (normal) Right Femoral Pulse: 2+ (normal) Dorsalis Pedis Pulses: Assessed Left Dorsalis Pedis Pulse: 2+ (normal) Right Dorsalis Pedis Pulse: 2+ (normal) Back Back (WDL): Within Defined Limits Log Roll With C-Spine Precautions: yes Back Deformity: negative Step Offs: negative Rectal Tone: deferred Secondary Assessment Head/Face Head/Face Assessment: WDL Except Head/Face: (S) (post operative changes in occipital region, s/p craniotomy in 2022) Mouth and Throat Assessment: Brief WDL Neck NECK (WDL): Within Defined Limits (c-collar applied on arrival) Chest Chest (WDL): Within Defined Limits Abdomen Abdomen (WDL): (S) Exceptions to WDL (left lower abdominal pain with palpation) Genito-Urinary Genito-Urinary (WDL): Within Defined Limits Rectal Tone: deferred Pelvis Pelvis (WDL): Within Defined Limits Extremities Extremities (WDL): Within Defined Limits DIAGNOSTICS EKG Interpretation Rhythm: normal sinus Rate: normal Purdum: normal Ectopy: none Conduction: normal ST Segments: no acute change T Waves: no acute change Q Waves: none Clinical Impression: no acute changes Labs: Results for orders placed or performed during the hospital encounter of 11/07/24 CBC AND ELECTRONIC DIFF Result Value Ref Range WBC Count 6.74 3.99 - 11.19 K/uL RBC Count 3.17 (L) 3.91 - 5.04 M/uL Hemoglobin 10.5 (L) 11.4 - 15.2 g/dL Hematocrit 29.0 (L) 34.9 - 44.3 % Mean Cell Volume 91.5 79.6 - 97.7 fL Mean Cell Hgb 33.1 25.9 - 33.9 pg Mean Cell Hgb Conc 36.2 (H) 31.4 - 35.9 g/dL RBC Distribution 13.1 10.8 - 14.9 % Platelet Count 169 150 - 393 K/uL Mean Platelet Volume 10.0 8.5 - 12.2 fL DIFF STATUS Electronic Differential Segs + Bands Auto 79.5 % Immature Grans % 0.4 % Lymphocyte % Auto 10.2 % Monocyte % Auto 9.2 % Eosinophil % Auto 0.4 % Basophil % Auto 0.3 % Nucleated RBC 0.0 <=0.2 /100 WBC Segs + Bands,Absolute Auto 5.35 1.64 - 7.28 K/uL Immature Grans Absolute <0.04 <=0.08 K/uL Abs Lymph Auto 0.69 (L) 1.16 - 3.51 K/uL Abs Panola Auto 0.62 0.22 - 0.87 K/uL Abs Eos Auto <0.04 0.00 - 0.42 K/uL Abs Baso Auto <0.04 0.00 - 0.15 K/uL VENOUS BLOOD GAS (FULL PANEL) Result Value Ref Range pH, Venous 7.48 (H) 7.32 - 7.43 pCO2, Venous 29 (L) 36 - 52 mm Hg pO2, Venous 106 mm Hg HCO3, Venous 22 22 - 29 mmol/L sO2 (O2 Saturation), Venous 99 (H) 70 - 80 % Base Excess -1.9 -3.0 - 3.0 mmol/L Glucose, Whole Blood 102 Nonfasting Glucose: 70-179 mg/dL Lactate, Whole Blood 0.7 0.5 - 1.6 mmol/L Sodium, Whole Blood 128 (L) 135 - 145 mmol/L Potassium, Whole Blood 4.3 3.5 - 5.0 mmol/L Ionized Calcium, Whole Blood 4.45 (L) 4.60 - 5.30 mg/dL Total Hemoglobin 11.1 (L) 11.4 - 15.2 g/dL Hematocrit (Calculated) 33 (L) 34 - 46 % Oxyhemoglobin 96 94 - 98 % Carboxyhemoglobin 1.6 (H) <=1.5 % Methemoglobin 1.1 <=1.5 % Specimen Type Venous Radiology: CT SPINE CERVICAL WITHOUT CONTRAST Preliminary Result IMPRESSION: No acute fracture or traumatic malalignment. CT HEAD WITHOUT CONTRAST Preliminary Result IMPRESSION: Status post left-sided craniectomy/cranioplasty. Again present is a predominantly hypoattenuating extra-axial fluid collection deep to the cranioplasty, mildly increased in size since 2022. There are some indistinctly marginated nodular isoattenuating to mildly hyperattenuating findings along the deep margin of this extra-axial collection that are new from December 2022. This is nonspecific and could represent scarring, blood, or recurrent neoplasm. An MRI brain with and without contrast would offer better characterization of this finding. No evidence of acute intraparenchymal hemorrhage, mass effect, or acute large territory infarct. XR PELVIS 1-2 VIEWS Final Result IMPRESSION: Osteopenia. Chronic appearing mild widening of the pubic symphysis. No displaced fracture evident. CHEST 1 VIEW PORTABLE Final Result IMPRESSION: No displaced fracture. Diffuse centrally predominant bronchial wall thickening and interstitial changes can be seen with inflammatory airways disease or early developing edema. Clinically correlate. US FAST (Results Pending) I directly reviewed the images and radiology interpretation . Medical Decision Making Patient presents with acute on chronic SDH. Unknown trauma status but remainder of patient's exam is atraumatic. Out of caution will obtain CT cervical spine in addition to repeat CT head to evaluate for progression. Will start nicardipine for blood pressure control as patient is significantly hypertensive in the setting of SDH. Neurosurgery consulted for management. Imaging as above without traumatic injury and questionable hyperdensity that may represent neoplasm vs. Blood with associated hypodensities with presumed chronic findings. Impression: acute on chronic sdh, hypertensive emergency Critical Care Time 34 minutes. Total number of minutes spent in direct care of this critically ill patient; excludes procedure time. Interventions 1. Serial Hemodynamic evaluation 2. Serial Neurologic evaluation 3. Laboratory evaluation/interpretation 4. Radiographic evaluation/interpretation 12. Discussion with accepting team on patient status Amount and/or Complexity of Data Reviewed Labs: ordered. Radiology: ordered. ECG/medicine tests: ordered. Risk Prescription drug management. Decision regarding hospitalization. Orders Placed This Encounter ED US FAST XR CHEST 1 VIEW PORTABLE XR PELVIS 1-[address] HEAD WITHOUT CONTRAST CT SPINE CERVICAL WITHOUT CONTRAST RAINBOW DRAW CBC, EDIF, PLATELET CHM 7 - ED PROTIME-INR ALCOHOL (ETHANOL),BLOOD URINE DRUG SCREEN 10 HIGH SENSITIVITY TROPONIN I - SINGLE ORDER VITAMIN D (25-HYDROXY,TOTAL) TSH GOLD TOP TUBE MINT GREEN TOP TUBE LAVENDER TOP TUBE LT BLUE TOP TUBE CBC AND ELECTRONIC DIFF ECG TYPE AND SCREEN niCARdipine in sodium chloride (CARDENE) 40 mg-0.83/200 ml premix IV infusion URINALYSIS REFLEX TO CULTURE URINALYSIS REFLEX TO CULTURE PERFORMABLE EXTRA MICRO ED Course: I have reviewed the history, physical, and plan with the resident/MIRELA and agree. Prior medical records were reviewed. All pertinent labs and imaging results were reviewed and interpreted by me. The patient was updated regarding findings, and was re-assessed during ED stay. This note was dictated using medical voice recognition software. Attempts at proofreading were made, but errors may occasionally still occur. Ignacio De La Garza Sr., MD, PhD 11/07/24 1332 Ignacio De La Garza Sr., MD, PhD 11/07/24 1627 Ignacio De La Garza Sr., MD, PhD 11/07/24 1628 Cardene 5 mg/hr started now. SW responded to Level 2 Trauma brought in by [employer] after patient fell. Emergency Contacts: Alexsandra, child [phone] Per EMS patient's daughter is en route to [facility]. SW will be available for support as needed while patient is in the ED. Edy BLOOD, [facility] Medical Social Work Patient arrives to trauma bay now. Slurred speech, unsteady gait while at [facility] study. PMH intracranial bleed, craniotomy for tumor (2022). 200/60 on EMS arrival. Improved to 170 en route. NIH 1 at OSH but 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 Patient roomed for ordering purposes. Neuro surg provider paged at this time to clarify BP parameters at this time. Neuro surg provider paged at this time to clarify BP parameters documented in this encounter [facility] 11-08-2024 Emergency department Note Per Dr Johnson, pt is allowed to eat. Pt given breakfast. Pt passed bedside swallow. [facility] 11-08-2024 Emergency department Note Pt incontinent at this time. Total linen change, new brief and purwick in place. [facility] 11-07-2024 Emergency department Note Pt states dull pain across forehead that is new, no changes in neuro exam. [facility] Consult note Formatting of th is note is different from the original. TRAUMA SERVICES - TRAUMA H & P Patient Name: Sarah Mcguire 78 y.o. female Date of Evaluation: 11/07/2024 Trauma Attending: Dr. Leo GARDNER: TRAUMA LEVEL: Level 2 Trauma Inter-facility Transfer: No Sarah Mcguire is a 78 y.o. female transported to [facility] s/p slurred speech and c/f possible head strike earlier this week. Per EMS Slurred speech, unsteady gait while at bible study. PMH intracranial bleed, craniotomy for tumor (2022). 200/60 on EMS arrival. Improved to 170 en route. NIH 1 at OSH but 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 On eliquis at home, patient hard of hearing but GCS 14 one off for confusion on arrival. Pre-hospital Care Provided: imaging HISTORY: [] Unable to obtain due to altered sensorium Allergies: has no known allergies. Home Medications: AMIOdarone, Acetaminophen, Atorvastatin, Doxazosin, Lisinopril, Spironolactone, apixaban, carveDILOL, hydroCHLOROthiazide, and magnesium Chloride Past Medical History: PMH significant for HTN, HLD, and a large frontoparietal meningioma s/p left frontotemporal resection with Dr. Kincaid and a large plastics scalp reconstruction with Dr. Key in 11/2022 c/b an emergent left frontal craniotomy for an epidural hematoma postop 8 days later Past Medical History: Diagnosis Date High blood cholesterol HTN (hypertension) Past Surgical History: per above Past Surgical History: Procedure Laterality Date EVACUATION [...] MD; Location: [facility] MAIN OR FLAP MUSCLE/MYOCUTANEOUS/FASCIOCUTANEO US HEAD OR NECK Left 11/16/2022 Laterality: Left; Surgeon: Saray Key [...] REDUCTION 1997 BREAST LUMPECTOMY Bilateral HEMORRHOIDECTOMY HYSTERECTOMY There is no height or weight on file to calculate BMI. Social History: reports that she has never smoked. She has never used smokeless tobacco. She reports that she does not currently use alcohol. She reports that she does not use drugs. ROS: Hard of hearing but no obvious complaints, states she doesn't have pain or n/v. PRIMARY SURVEY: Airway/C-Spine: Patent, Trachea Midline, Cervical collar in place Breathing/Pulmonary: Spontaneous, Bilateral breath sounds, Equal rise and fall of chest Circulation/Cardiovascular: 2+ and symmetric, No significant bleeding Disability/Neurologic: G.C.S: 4 - Opens eyes on own, 6 - Follows simple motor commands, 5 - Alert and oriented G.C.S. Total: 15 Exposure: Exposure achieved. SECONDARY SURVEY: VS: BP 123/57 Pulse 54 Temp 98.6 F (37 C) (Oral) Resp 23 SpO2 99% Smoking Status Never O2 Sat (%): [97 %-99 %] 99 % O2 Device: room air Neurologic: Awake, alert, follows commands, moves all extremities. PEERL. Motor and sensation grossly intact. Head: Vision and hearing intact. Midface stable. No hyphema, hemotympanum, nasal septal hematoma, malocclusion, loose teeth, blood in mouth. Old post op changes to head with step off on cranium Neck: No midline spine tenderness with palpation, no step offs or deformities, no paraspinal tenderness. No JVD. Back/Flank: No thoracic or lumbar spine tenderness, nontender sacrum. No lacerations, abrasions, ecchymoses. Cardiopulmonary/Chest: Respirations easy and regular, equal rise and fall of chest, no accessory muscle use. Regular rate and rhythm, well perfused with warm extremities. No chest pain with palpation. No lacerations, abrasions or other obvious deformities. GI/Abd: Abdomen soft, non-distended, non-tender to palpation. No lacerations, abrasions or other obvious deformities. /Pelvis: Pelvis stable and nontender to AP compression, no blood from genitalia or rectum. No lacerations, abrasions or other obvious deformities. MSK: Good pulse, motor and sensory to all four extremities. Skin, pink, warm and dry. No lacerations, abrasions or other obvious deformities. Psych: Normal affect. LABS/IMAGING: Recent Labs 11/07/24 1254 11/07/24 1319 WBC 6.74 -- HGB 10.5* -- SODIUM 131* 128* POTASSIUM 4.5 4.3 CO2 21 -- CREATSERUM 0.93 -- INR 1.3* -- CT SPINE CERVICAL WITHOUT CONTRAST Preliminary Result IMPRESSION: No acute fracture or traumatic malalignment. CT HEAD WITHOUT CONTRAST Preliminary Result IMPRESSION: Status post left-sided craniectomy/cranioplasty. Again present is a predominantly hypoattenuating extra-axial fluid collection deep to the cranioplasty, mildly increased in size since 2022. There are some indistinctly marginated nodular isoattenuating to mildly hyperattenuating findings along the deep margin of this extra-axial collection that are new from December 2022. This is nonspecific and could represent scarring, blood, or recurrent neoplasm. An MRI brain with and without contrast would offer better characterization of this finding. No evidence of acute intraparenchymal hemorrhage, mass effect, or acute large territory infarct. XR PELVIS 1-2 VIEWS Final Result IMPRESSION: Osteopenia. Chronic appearing mild widening of the pubic symphysis. No displaced fracture evident. CHEST 1 VIEW PORTABLE Final Result IMPRESSION: No displaced fracture. Diffuse centrally predominant bronchial wall thickening and interstitial changes can be seen with inflammatory airways disease or early developing edema. Clinically correlate. US FAST (Results Pending) TRAUMA CATALOGUE OF INJURIES & INCIDENTAL FINDINGS: Status post left-sided craniectomy/cranioplasty. Again present is a predominantly hypoattenuating extra-axial fluid collection deep to the cranioplasty, mildly increased in size since December 2022. There are some indistinctly marginated nodular isoattenuating to mildly hyperattenuating findings along the deep margin of this extra-axial collection that are new from December 2022. Incidental Findings: ASSESSMENT AND PLAN: The patient was evaluated according to ATLS standards and discussed with the Attending Trauma Surgeon. Time Discussed with Trauma Attending: Dr. Leo Mcguire is a 78 y.o. s/p slurred speech and possible recent head strike transferred from OSH due to concern for Intracranial bleed, on eliquis, reversed OSH Predominantly hypoattenuating extra-axial fluid collection deep to the cranioplasty, mildly increased in size since December 2022. There are some indistinctly marginated nodular isoattenuating to mildly hyperattenuating findings along the deep margin of this extra-axial collection that are new from December 2022. OSH CTH showed a 1.2 cm epidural collection of fluid, isointense with a heterogenous component that could be concerning for subacute epidural blood, and 6 hour interval CTH was stable. - NSGY consulted: -- No repeat imaging recommended at this time given the 6 hour interval scan was stable (unless patient has a decline on exam) -- Start keppra 1000 mg BID for concern of seizure as etiology of word-finding difficulties -- Recommend a spot EEG -- Maintain INR < 1.4 and PLT > 100 -- SBP < 160 C/F fall/head strike: - Geriatric trauma labs (if not already collected): vitamin D, TSH, UA reflex to culture - Recommend fall workup: orthostatic vital signs, EKG, may require echocardiogram if suspicion for cardiac etiology Goals of Care and Code Status: Code Status on File: Full Code Disposition: NSGY recommending medicine admission [] For all traumatically injured geriatric patients, place geriatrics consult. [] SW/SBIRT order for all traumatically injured patients. [] SICU Admission: Handoff Called to Fellow - Pager [phone] D-ÉG [employer] [phone] If there are any questions or concerns, please see the treatment team or page the Consult Resident #[id number] (Web Exchange, search Acute Care Surgery > Consults - Emergency General Surgery/Trauma Consults) Greta Tabares MD Complexity. Any conditions listed below are present on admission unless otherwise specified.. Cosigned by Smiley Bailey MD, MPH at 11/08/2024 6:22 AM EDT Associated attestation - Smiley Bailey MD, MPH - 11/08/2024 6:22 AM EDT Images from the original note were not included. TRAUMA ATTENDING NOTE I personally saw and examined the patient on 11/07/24 at 1:05pm. All pertinent notes, labs and imaging were discussed, read, and reviewed. All past medical, social and family histories were reviewed and not pertinent to the presenting problem, unless otherwise documented. A review of systems was queried and is negative unless otherwise noted. All effort was exhausted to obtain pertinent information from the patient, available family, medical records, or technical support consultant. I agree with resident exam, assessment and plan and my additional comments are below. In brief, this is a 78 yo F with h/o HTN, HPL, large frontoparietal meningioma s/p left frontotemporal resection and flap reconstruction (2022) c/b EDH s/p emergent L frontal craniotomy post op and XRT who presents with unclear traumatic story. Patient was found to be altered, with slurred speech at bible study, with subsequent reports of hitting her head in the bathroom while washing her hair in the sink before bible study. Patient is on eliquis, unclear indication. Primary intact - HDS, GCS 15. Secondary unremarkable. Labs r/f Hgb 10.5, sodium 131. CXR/PXR negative for injury. CTH with 1.2 cm epidural collection of fluid, isointense with a heterogenous component that could be concerning for subacute epidural blood. Trauma Activation Checklist was utilized: Yes. This patient s admission is complicated by: Blood Loss Anemia and Traumatic SDH/EDH Without Loss of Consciousness. See details in my documentation below. Diagnosis/Plan: # concern for epidural hematoma - NSTY consulted - rCTH stable, keppra BID, spot EEG, INR < 1.4 and PLT > 100, SBP < 160 Disposition from the ED: Medicine with NSGY C/S and ACS tertiary. Given the patient's age > 64, recommend geriatric consult. Signed Smiley Bailey MD MPH home office claim specialist Division of Trauma, Critical Care, Burn [facility] Work Phone: 11-07-2024 Consult note Associated Order (s): IP CONSULT TO SURGERY - NEURO Neurosurgery Consult Note Reason for Consultation: subdural HPI Ms. Sarah Mcguire is a 78 y.o. female w/ PMH significant for HTN, HLD, and a large frontoparietal meningioma s/p left frontotemporal resection with Dr. Kincaid and a large plastics scalp reconstruction with Dr. Key in 11/2022 c/b an emergent left frontal craniotomy for an epidural hematoma postop 8 days later who presents to [facility] for an epidural collection observed on OSH CTH in the context of word finding difficulties at her bible study meeting. She denies any headache, nausea, vomiting, numbness, weakness, paresthesias, altered ambulation, changes in vision, difficulty swallowing, changes in speech, changes in bowel/bladder habits, or other focal neurological deficits. She states that her friend group at the bible study wanted her to get checked out the hospital because of her word finding difficulties. She takes eliquis (LD 6/4 AM) and received kcentra at OSH for reversal. ROS: All other systems are negative except as mentioned in HPI Past Medical History: Diagnosis Date High blood cholesterol HTN (hypertension) Past Surgical History: Procedure Laterality Date EVACUATION [...] MD; Location: [facility] FLAP MUSCLE/MYOCUTANEOUS/FASCIOCUTANEO US HEAD OR NECK Left 11/16/2022 Laterality: Left; Surgeon: Saray Key [...] REDUCTION 1997 BREAST LUMPECTOMY Bilateral HEMORRHOIDECTOMY HYSTERECTOMY Family History Problem Relation Age of Onset Other - Specify Father perferated bowel Social History Tobacco Use Smoking status: Never Smokeless tobacco: Never Vaping Use Vaping status: Never Used Substance Use Topics Alcohol use: Not Currently Comment: socially once a year Drug use: Never Allergies No Known Allergies Infusions niCARdipine 5 mg/hr (11/07/24 1324) Scheduled Meds levETIRAcetam 1,000 mg Intravenous Q12HNS Tetanus & diphtheria toxoids vaccine 0.5 mL Intramuscular Once PRN Meds: Home Meds Prior to Admission medications Medication Sig Start Date End Date Taking? Authorizing Provider Acetaminophen 325 MG tablet 1 tablet by Per NG tube route every 4 hours as needed for Mild Pain. 12/06/22 LOIS Chairez AMIOdarone 200 MG tablet 01/07/23 Historical Provider apixaban (Eliquis) 5 MG tablet 01/01/23 Historical Provider Atorvastatin 10 MG tablet Take 1 tablet by mouth at bedtime. Historical Provider carveDILOL 12.5 MG tablet 1 tablet by Per NG tube route every 12 hours. 12/06/22 01/05/23 LOIS Chairez Doxazosin 2 MG tablet Take 1 tablet by mouth at bedtime. 01/30/23 Historical Provider hydroCHLOROthiazide 25 MG tablet Take 1 tablet by mouth daily. Historical Provider Lisinopril 2.5 MG tablet 12/29/22 Historical Provider magnesium Chloride (Mag64) [address] tablet ER 01/01/23 Historical Provider Spironolactone 25 MG/5ML Suspension Take 25 mg by mouth daily. 03/20/24 Historical Provider Vitals Temp: [98.6 F (37 C)] 98.6 F (37 C) Pulse (Heart Rate): [60-64] 61 Resp Rate: [14-25] 23 BP: (131-218)/(59-88) 131/59 O2 Sat (%): [98 %-99 %] 98 % Physical General: NAD Cards: no obvious JVD Resp: no stridor or retractions Abd: soft NTND Ext: no edema Mental Status: Awake, alert, oriented x3. Cooperative, follows commands. Language fluent. Cranial Nerves: PERRL, EOMI bilaterally. Facial sensation intact in all 3 branches. Facial movement intact and symmetric. SCM/Trap strength 5/5 bilaterally. Tongue is midline. Motor Function: SA EF EE WF WE FG DI HF KF KE PF DF Right 5 5 5 5 5 5 5 5 5 5 5 5 Left 5 5 5 5 5 5 5 5 5 5 5 5 Sensory Function: Sensation is intact to light touch and painful stimulation throughout. Labs WBC/Hgb/Hct/Plts: 6.74/10.5/33/169 (11/07 1254-11/07 1319) Na/K+/Phos/Mg/Ca: 128/4.3/--/--/-- (11/07 1319) Bun/Creat/Cl/CO2/Glucose: --/--/--/--/102 (11/07 1319) Recent Labs 11/07/24 1254 PT 15.8* INR 1.3* Imaging: XR PELVIS 1-2 VIEWS Final Result IMPRESSION: Osteopenia. Chronic appearing mild widening of the pubic symphysis. No displaced fracture evident. CHEST 1 VIEW PORTABLE Final Result IMPRESSION: No displaced fracture. Diffuse centrally predominant bronchial wall thickening and interstitial changes can be seen with inflammatory airways disease or early developing edema. Clinically correlate. US FAST (Results Pending) CT HEAD WITHOUT CONTRAST (Results Pending) CT SPINE CERVICAL WITHOUT CONTRAST (Results Pending) Pertinent Imaging: OSH CTH 11/07 - 1.2 cm thick epidural collection of fluid under the cranioplasty but above the dural layer, no midline shift CTH 6/ 6 hour interval scan - stable without interval progression, no midline shift Pertinent Labs: INR 1.3 (post kcentra), PLT 169 A/P: Sarah Mcguire is a 78 y.o. female w/ PMH significant for a large frontoparietal meningioma s/p left frontotemporal resection with Dr. Kincaid and a large plastics scalp reconstruction with Dr. Key in 11/2022 c/b an emergent left frontal craniotomy for an epidural hematoma postop [address] Salazar who presents to [facility] for an epidural collection observed on OSH CTH in the context of word find difficulties at bible study. OSH CTH showed a 1.2 cm epidural collection of fluid, isointense with a heterogenous component that could be concerning for subacute epidural blood, and 6 hour interval CTH was stable. Exam was intact. She received kcentra at OSH because of eliquis. Plan: -- No repeat imaging recommended at this time given the 6 hour interval scan was stable (unless patient has a decline on exam) -- Start keppra 1000 mg BID for concern of seizure as etiology of word-finding difficulties -- Recommend a spot EEG -- Maintain INR < 1.4 and PLT > 100 -- SBP < 160 Staff: Dr. Kincaid Covering: NS1 ([id number]) ## neurosurgery coverage changes at 0530/1730; if 0530 or 1730 has passed since original consult note placed, please page covering pager above ## Complexity. Hyponatremia - Secondary to fluid shifts. Monitor. Hypocalcemia - Continue to monitor and replete. Wound Documentation Any conditions listed below are present on admission unless otherwise specified. . Cosigned by Ernie Kincaid MD at 11/08/2024 9:48 AM EDT [facility] Work Phone: 11-07-2024 Note Acute Coronary Syndr ome (ACS): Initial Evaluation and Management: [email or web address] [facility] 11-07-2024 Emergency department Note Transport to CT on monitor with RN, Resident. [facility] 11-07-2024 Physician Emergency department Note eMERGENCY dEPARTMENT eNCOUnter Patient: Sarah Mcguire : 1945 MR#: [id number] Primary Care Provider: Monika Venegas Date of Exam: 11/07/2024 CHIEF COMPLAINT No chief complaint on file. HPI Sarah Mcguire is a 78 y.o. 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, hypertension, hyperlipidemia presents to [facility] as a level 2 trauma transfer via [facility] for subdural hematoma. Brief History: Patient had slurred speech, unsteady gait while at [facility] study. EMS report patient hit her head at faucet when trying to wash her hair, LKW 10.21am. Blood pressure was 200/60 on EMS arrival. Improved to 170 en route. NIH 1 at OSH but 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 Patient on eliquis, Balfaxar given at OSH. C-collar placed upon arrival to [facility] ED. The patient was evaluated using standard ATLS protocols with assistance from trauma surgery service. Cervical spine precautions were maintained throughout primary and secondary surveys. TRAUMA INFORMATION Trauma Level Time of Alert: 1251 Trauma Level: level 2 Pre-Arrival Treatment Pre-Arrival Treatment: hospital transfer EMS Agency: [facility] (5) Arrived By: helicopter PAST MEDICAL HISTORY Past Medical History: Diagnosis Date High blood cholesterol HTN (hypertension) SURGICAL HISTORY Past Surgical History: Procedure Laterality Date EVACUATION [...] MD; [facility] FLAP MUSCLE/MYOCUTANEOUS/FASCIOCUTANEO US HEAD OR NECK Left 11/16/2022 Laterality: Left; Surgeon: Saray Key [...] W/O GRAFT Left 10/13/2022 Laterality: Left; Surgeon: Ernei Kincaid MD; Location: [facility] OR BREAST REDUCTION 1997 BREAST LUMPECTOMY Bilateral HEMORRHOIDECTOMY HYSTERECTOMY CURRENT MEDICATIONS Current Outpatient Medications Medication Sig Acetaminophen 325 MG tablet 1 tablet by Per NG tube route every 4 hours as needed for Mild Pain. AMIOdarone 200 MG tablet apixaban (Eliquis) 5 MG tablet Atorvastatin 10 MG tablet Take 1 tablet by mouth at bedtime. carveDILOL 12.5 MG tablet 1 tablet by Per NG tube route every 12 hours. Doxazosin 2 MG tablet Take 1 tablet by mouth at bedtime. hydroCHLOROthiazide 25 MG tablet Take 1 tablet by mouth daily. Lisinopril 2.5 MG tablet magnesium Chloride (Mag64) [address] tablet ER Spironolactone 25 MG/5ML Suspension Take 25 mg by mouth daily. 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 Tobacco Use Smoking status: Never Smokeless tobacco: Never Vaping Use Vaping status: Never Used Substance and Sexual Activity Alcohol use: Not Currently Comment: socially once a year Drug use: Never Sexual activity: Never Other Topics Concern Occupational Exposure No Hobby Hazards No Social History Narrative Not on file Social Drivers of Health Financial Resource Strain: Not on [...] on file Social Connections: Not on file Personal Safety: Not on file Housing Stability: Low Risk (11/18/2022) Housing Stability Vital Sign Unable to Pay for Housing in the Last Year: No Number of Places Lived in the Last Year: 1 Unstable Housing in the Last Year: No PHYSICAL EXAM VITAL SIGNS: BP 200/70 Pulse 64 Temp 98.6 F (37 C) (Oral) Resp 20 SpO2 98% Smoking Status Never [place] Coma Scale Best Eye Response: 4-->(E4) spontaneous Best Motor Response: 6-->(M6) obeys commands Best Verbal Response: 5-->(V5) oriented [place] Coma Scale Score: 15 Primary Assessment Airway Airway (WDL): Within Defined Limits C-Spine Protections: c-collar applied (on arrival) Breathing Breathing (WDL): Within Defined Limits Chest Assessment: Trachea midline O2 Sat (%): 98 % O2 Device: room air Circulation Circulation (WDL): Within Defined Limits Radial Pulses: Assessed Left Radial Pulse: 2+ (normal) Right Radial Pulse: 2+ (normal) Femoral Pulses: Assessed Left Femoral Pulse: 2+ (normal) Right Femoral Pulse: 2+ (normal) Dorsalis Pedis Pulses: Assessed Left Dorsalis Pedis Pulse: 2+ (normal) Right Dorsalis Pedis Pulse: 2+ (normal) Back Back (WDL): Within Defined Limits Log Roll With C-Spine Precautions: yes Back Deformity: negative Step Offs: negative Rectal Tone: deferred Secondary Assessment Head/Face Head/Face Assessment: WDL Except Head/Face: (S) (post operative changes in occipital region, s/p craniotomy in 2022) Mouth and Throat Assessment: Brief WDL Neck NECK (WDL): Within Defined Limits (c-collar applied on arrival) Chest Chest (WDL): Within Defined Limits Abdomen Abdomen (WDL): (S) Exceptions to WDL (left lower abdominal pain with palpation) Genito-Urinary Genito-Urinary (WDL): Within Defined Limits Rectal Tone: deferred Pelvis Pelvis (WDL): Within Defined Limits Extremities Extremities (WDL): Within Defined Limits Results for orders placed or performed during the hospital encounter of 11/07/24 CBC AND ELECTRONIC DIFF Result Value Ref Range WBC Count 6.74 3.99 - 11.19 K/uL RBC Count 3.17 (L) 3.91 - 5.04 M/uL Hemoglobin 10.5 (L) 11.4 - 15.2 g/dL Hematocrit 29.0 (L) 34.9 - 44.3 % Mean Cell Volume 91.5 79.6 - 97.7 fL Mean Cell Hgb 33.1 25.9 - 33.9 pg Mean Cell Hgb Conc 36.2 (H) 31.4 - 35.9 g/dL RBC Distribution 13.1 10.8 - 14.9 % Platelet Count 169 150 - 393 K/uL Mean Platelet Volume 10.0 8.5 - 12.2 fL DIFF STATUS Electronic Differential Segs + Bands Auto 79.5 % Immature Grans % 0.4 % Lymphocyte % Auto 10.2 % Monocyte % Auto 9.2 % Eosinophil % Auto 0.4 % Basophil % Auto 0.3 % Nucleated RBC 0.0 <=0.2 /100 WBC Segs + Bands,Absolute Auto 5.35 1.64 - 7.28 K/uL Immature Grans Absolute <0.04 <=0.08 K/uL Abs Lymph Auto 0.69 (L) 1.16 - 3.51 K/uL Abs Panola Auto 0.62 0.22 - 0.87 K/uL Abs Eos Auto <0.04 0.00 - 0.42 K/uL Abs Baso Auto <0.04 0.00 - 0.15 K/uL VENOUS BLOOD GAS (FULL PANEL) Result Value Ref Range pH, Venous 7.48 (H) 7.32 - 7.43 pCO2, Venous 29 (L) 36 - 52 mm Hg pO2, Venous 106 mm Hg HCO3, Venous 22 22 - 29 mmol/L sO2 (O2 Saturation), Venous 99 (H) 70 - 80 % Base Excess -1.9 -3.0 - 3.0 mmol/L Glucose, Whole Blood 102 Nonfasting Glucose: 70-179 mg/dL Lactate, Whole Blood 0.7 0.5 - 1.6 mmol/L Sodium, Whole Blood 128 (L) 135 - 145 mmol/L Potassium, Whole Blood 4.3 3.5 - 5.0 mmol/L Ionized Calcium, Whole Blood 4.45 (L) 4.60 - 5.30 mg/dL Total Hemoglobin 11.1 (L) 11.4 - 15.2 g/dL Hematocrit (Calculated) 33 (L) 34 - 46 % Oxyhemoglobin 96 94 - 98 % Carboxyhemoglobin 1.6 (H) <=1.5 % Methemoglobin 1.1 <=1.5 % Specimen Type Venous ED US FAST (Results Pending) XR CHEST 1 VIEW PORTABLE (Results Pending) XR PELVIS 1-2 VIEWS (Results Pending) CT HEAD WITHOUT CONTRAST (Results Pending) CT SPINE CERVICAL WITHOUT CONTRAST (Results Pending) Vitals: 11/07/24 1309 11/07/24 1320 BP: 200/70 Pulse: 62 64 Resp: 18 20 Temp: 98.6 degrees F (37 degrees C) TempSrc: Oral SpO2: 98% 98% ED COURSE & MEDICAL DECISION MAKING Medical Decision Making Amount and/or Complexity of Data Reviewed Labs: ordered. Radiology: ordered. ECG/medicine tests: ordered. Sarah Mcguire is a 78 y.o. female, who presents as a trauma alert. Standard ATLS protocols were followed with assistance from the trauma surgery service. Initial evaluation significant for acute on chronic subd. Differential includes but is not limited to acute intracranial, intra-abdominal, intra-thoracic, spinal pathology and/or injury, fracture to skull, facial bones. Pertinent labs & imaging studies reviewed. Cervical spine clearance per trauma service. Continuous cardiovascular monitoring. Trauma labs obtained, including T&C, coags, CBC, chemistries. Volume resuscitation was not necessary as the patient was hemodynamically stable Trauma imaging: CT: head and cervical spine XR: chest and pelvis tetanus was updated as last tetanus unknown Will consult neurosurgery. Will place geriatrics consult. ED Course as of 11/08/24 1502 Wed Nov 07, 2024 1347 Neurosurgery at bedside, BP goal systolic < 160. Seizure prophylaxis with keppra 1000 bid. possible admission to their service pending discussion with team, will reach out with further recommendations 1347 Patient on eliquis, 2500units of balfaxar given at OSH. 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 Cindy Coffey MD Resident 11/07/24 1668 [facility] Work Phone: 11-07-2024 Emergency department Note Bed: E021 Expected date: Expected time: Means of arrival: Comments: 34 [facility] 11-07-2024 Emergency department Note Department of Pharmacy - Trauma Note Patient: Sarah Mcguire Room/Bed: E034/E034 Level 2 trauma s/p Fall with SDH found at OSH Medications received prior to arrival: Balfaxar 2500 units @1130 Prophylactic Antibiotics: n/a Tetanus: N/A Patient is on eliquis. Please feel free to contact me with any further questions. Name: Octavio Pinon RPH Phone #: [phone] Date/Time: 11/07/2024 1:29 PM [facility] 11-07-2024 Physician Emergency department Note ED ATTENDING NOTE Please see resident notes from this encounter for additional information. I saw and examined the patient. I discussed the history and examination with the resident and agree with the plan of care unless otherwise indicated. RELEVANT HPI: Sarah Mcguire is a 78 y.o. female has a past medical history of High blood cholesterol and HTN (hypertension). She has no past medical history of History of chemotherapy, History of radiation therapy, or Pacemaker.; she presents with chief complaint of No chief complaint on file. Patient presents with known SDH. Patient presents as level 2 trauma activation per trauma team. Report to them from physician at OSH was of a head strike on the faucet while the patient was washing her hair. EMS was not told of any traumatic injury. They were told LKW 1021 and patient had new slurred speech; NIH 1. Patient was alert, oriented with normal speech, and no weakness for medics en route and in general stable. No c collar given lack of trauma in report to them. C collar was applied upon arrival. Patient is in no acute distress and corroborates the story including noting that she is unsure if she hit her head or not. EMS also notes patient had a craniotomy but other than that known deformity that appears chronic there were no reported signs of head trauma. PERTINENT EXAM: Vital Signs: BP 200/70 Pulse 64 Temp 98.6 F (37 C) (Oral) Resp 20 SpO2 98% Smoking Status Never Hann[place] Coma Scale Best Eye Response: 4-->(E4) spontaneous Best Motor Response: 6-->(M6) obeys commands Best Verbal Response: 5-->(V5) oriented Hann[place] Coma Scale Score: 15 Primary Assessment Airway Airway (WDL): Within Defined Limits C-Spine Protections: c-collar applied (on arrival) Breathing Breathing (WDL): Within Defined Limits Chest Assessment: Trachea midline O2 Sat (%): 98 % O2 Device: room air Circulation Circulation (WDL): Within Defined Limits Radial Pulses: Assessed Left Radial Pulse: 2+ (normal) Right Radial Pulse: 2+ (normal) Femoral Pulses: Assessed Left Femoral Pulse: 2+ (normal) Right Femoral Pulse: 2+ (normal) Dorsalis Pedis Pulses: Assessed Left Dorsalis Pedis Pulse: 2+ (normal) Right Dorsalis Pedis Pulse: 2+ (normal) Back Back (WDL): Within Defined Limits Log Roll With C-Spine Precautions: yes Back Deformity: negative Step Offs: negative Rectal Tone: deferred Secondary Assessment Head/Face Head/Face Assessment: WDL Except Head/Face: (S) (post operative changes in occipital region, s/p craniotomy in 2022) Mouth and Throat Assessment: Brief WDL Neck NECK (WDL): Within Defined Limits (c-collar applied on arrival) Chest Chest (WDL): Within Defined Limits Abdomen Abdomen (WDL): (S) Exceptions to WDL (left lower abdominal pain with palpation) Genito-Urinary Genito-Urinary (WDL): Within Defined Limits Rectal Tone: deferred Pelvis Pelvis (WDL): Within Defined Limits Extremities Extremities (WDL): Within Defined Limits DIAGNOSTICS EKG Interpretation Rhythm: normal sinus Rate: normal Purdum: normal Ectopy: none Conduction: normal ST Segments: no acute change T Waves: no acute change Q Waves: none Clinical Impression: no acute changes Labs: Results for orders placed or performed during the hospital encounter of 11/07/24 CBC AND ELECTRONIC DIFF Result Value Ref Range WBC Count 6.74 3.99 - 11.19 K/uL RBC Count 3.17 (L) 3.91 - 5.04 M/uL Hemoglobin 10.5 (L) 11.4 - 15.2 g/dL Hematocrit 29.0 (L) 34.9 - 44.3 % Mean Cell Volume 91.5 79.6 - 97.7 fL Mean Cell Hgb 33.1 25.9 - 33.9 pg Mean Cell Hgb Conc 36.2 (H) 31.4 - 35.9 g/dL RBC Distribution 13.1 10.8 - 14.9 % Platelet Count 169 150 - 393 K/uL Mean Platelet Volume 10.0 8.5 - 12.2 fL DIFF STATUS Electronic Differential Segs + Bands Auto 79.5 % Immature Grans % 0.4 % Lymphocyte % Auto 10.2 % Monocyte % Auto 9.2 % Eosinophil % Auto 0.4 % Basophil % Auto 0.3 % Nucleated RBC 0.0 <=0.2 /100 WBC Segs + Bands,Absolute Auto 5.35 1.64 - 7.28 K/uL Immature Grans Absolute <0.04 <=0.08 K/uL Abs Lymph Auto 0.69 (L) 1.16 - 3.51 K/uL Abs Panola Auto 0.62 0.22 - 0.87 K/uL Abs Eos Auto <0.04 0.00 - 0.42 K/uL Abs Baso Auto <0.04 0.00 - 0.15 K/uL VENOUS BLOOD GAS (FULL PANEL) Result Value Ref Range pH, Venous 7.48 (H) 7.32 - 7.43 pCO2, Venous 29 (L) 36 - 52 mm Hg pO2, Venous 106 mm Hg HCO3, Venous 22 22 - 29 mmol/L sO2 (O2 Saturation), Venous 99 (H) 70 - 80 % Base Excess -1.9 -3.0 - 3.0 mmol/L Glucose, Whole Blood 102 Nonfasting Glucose: 70-179 mg/dL Lactate, Whole Blood 0.7 0.5 - 1.6 mmol/L Sodium, Whole Blood 128 (L) 135 - 145 mmol/L Potassium, Whole Blood 4.3 3.5 - 5.0 mmol/L Ionized Calcium, Whole Blood 4.45 (L) 4.60 - 5.30 mg/dL Total Hemoglobin 11.1 (L) 11.4 - 15.2 g/dL Hematocrit (Calculated) 33 (L) 34 - 46 % Oxyhemoglobin 96 94 - 98 % Carboxyhemoglobin 1.6 (H) <=1.5 % Methemoglobin 1.1 <=1.5 % Specimen Type Venous Radiology: CT SPINE CERVICAL WITHOUT CONTRAST Preliminary Result IMPRESSION: No acute fracture or traumatic malalignment. CT HEAD WITHOUT CONTRAST Preliminary Result IMPRESSION: Status post left-sided craniectomy/cranioplasty. Again present is a predominantly hypoattenuating extra-axial fluid collection deep to the cranioplasty, mildly increased in size since 2022. There are some indistinctly marginated nodular isoattenuating to mildly hyperattenuating findings along the deep margin of this extra-axial collection that are new from December 2022. This is nonspecific and could represent scarring, blood, or recurrent neoplasm. An MRI brain with and without contrast would offer better characterization of this finding. No evidence of acute intraparenchymal hemorrhage, mass effect, or acute large territory infarct. XR PELVIS 1-2 VIEWS Final Result IMPRESSION: Osteopenia. Chronic appearing mild widening of the pubic symphysis. No displaced fracture evident. CHEST 1 VIEW PORTABLE Final Result IMPRESSION: No displaced fracture. Diffuse centrally predominant bronchial wall thickening and interstitial changes can be seen with inflammatory airways disease or early developing edema. Clinically correlate. US FAST (Results Pending) I directly reviewed the images and radiology interpretation . Medical Decision Making Patient presents with acute on chronic SDH. Unknown trauma status but remainder of patient's exam is atraumatic. Out of caution will obtain CT cervical spine in addition to repeat CT head to evaluate for progression. Will start nicardipine for blood pressure control as patient is significantly hypertensive in the setting of SDH. Neurosurgery consulted for management. Imaging as above without traumatic injury and questionable hyperdensity that may represent neoplasm vs. Blood with associated hypodensities with presumed chronic findings. Impression: acute on chronic sdh, hypertensive emergency Critical Care Time 34 minutes. Total number of minutes spent in direct care of this critically ill patient; excludes procedure time. Interventions 1. Serial Hemodynamic evaluation 2. Serial Neurologic evaluation 3. Laboratory evaluation/interpretation 4. Radiographic evaluation/interpretation 12. Discussion with accepting team on patient status Amount and/or Complexity of Data Reviewed Labs: ordered. Radiology: ordered. ECG/medicine tests: ordered. Risk Prescription drug management. Decision regarding hospitalization. Orders Placed This Encounter ED US FAST XR CHEST 1 VIEW PORTABLE XR PELVIS 1-[address] HEAD WITHOUT CONTRAST CT SPINE CERVICAL WITHOUT CONTRAST RAINBOW DRAW CBC, EDIF, PLATELET CHM 7 - ED PROTIME-INR ALCOHOL (ETHANOL),BLOOD URINE DRUG SCREEN 10 HIGH SENSITIVITY TROPONIN I - SINGLE ORDER VITAMIN D (25-HYDROXY,TOTAL) TSH GOLD TOP TUBE MINT GREEN TOP TUBE LAVENDER TOP TUBE LT BLUE TOP TUBE CBC AND ELECTRONIC DIFF ECG TYPE AND SCREEN niCARdipine in sodium chloride (CARDENE) 40 mg-0.83/200 ml premix IV infusion URINALYSIS REFLEX TO CULTURE URINALYSIS REFLEX TO CULTURE PERFORMABLE EXTRA MICRO ED Course: I have reviewed the history, physical, and plan with the resident/MIRELA and agree. Prior medical records were reviewed. All pertinent labs and imaging results were reviewed and interpreted by me. The patient was updated regarding findings, and was re-assessed during ED stay. This note was dictated using medical voice recognition software. Attempts at proofreading were made, but errors may occasionally still occur. Ignacio De La Garza Sr., MD, PhD 11/07/24 1332 Ignacio De La Garza Sr., MD, PhD 11/07/24 1627 Ignacio De La Garza Sr., MD, PhD 11/07/24 1628 [facility] 11-07-2024 Emergency department Note Cardene 5 mg/hr started now. [facility] department Note SW responded to Level 2 Trauma brought in by [employer] after patient fell. Emergency Contacts: elba Upton [phone] Per EMS patient's daughter is en route to [facility]. SW will be available for support as needed while patient is in the ED. Edy BLOOD, HIGHWAY ENGINEERING TECHNICIAN Medical Social Work [facility] Emergency department Note Patient arrives to trauma bay now. Slurred speech, unsteady gait while at bible study. PMH intracranial bleed, craniotomy for tumor (2022). 200/60 on EMS arrival. Improved to 170 en route. NIH 1 at OSH but 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 [facility] 11-07-2024 Emergency department Note Patient roomed for ordering purposes. [facility] 11-07-2024 Emergency department Note Neuro surg provider paged at this time to clarify BP parameters at this time. [facility] 11-07-2024 Emergency department Note Neuro surg provider paged at this time to clarify BP parameters [facility] 09-27-2024 Discharge summary [facility] 09-27-2024 Radiology Diagnostic study note [facility] Imaging Services [address], [place] [address] Chest PA and Lateral MR#: [id number] Acct: [id number] Name: SARAH MCGUIRE Rep #: [id number] : 1945 F 78 From: Heri Bradshaw MD PCP: Dr. Monika Venegas MD Status: REG ER Study:Chest PA and Lateral Date of Exam: 09/27/24 Exam# [id number] Ordering Dr: Bret Sadler DO PROCEDURE: CHEST PA AND LATERAL [...] No acute abnormality is seen. Reading Location: [facility] CC: Dr. Monika Venegas MD; Dr. Hayden Sadler DO ~ Airborne And Air Delivery Specialist: Signed [facility] 07-11-2024 History of Present illness Narrative Patient [...] 2 fatigue. Ongoing frontal HAs twice weekly. 2-08/13. Taking tylenol with good relief. Using a [...] levels. Continues to have alopecia. Interested in Rogaine. Denies any balance difficulty, dysphagia, seizures, focal [...] mL, 1-100 mL, Intravenous, Once PRN, Maddison Pickett, DO Physical Exam: Performance status: Karnofsky scale [...] XII are intact grossly and symmetrically EXCEPT SILETZ TRIBE in the left ear. No focal neurologic [...] this visit by the LOIS. LOIS Clarke, [facility] Department of Radiation Oncology Pager #[phone] Radiation Oncology Attending Addendum: I saw and [...] All medical record entries made by the Scribnadeem were at my direction and personally dictated by me, Andrew Bueno MD . I have reviewed and edited the chart and agree that the record accurately reflects my personal performance of the history, physical exam, assessment and plan. I have also personally directed, reviewed, and agree with the discharge instructions. documented in this encounter [facility] 07-11-2024 Instructions Annelise Rogers RN - 07/11/2024 11:00 AM EST It was a pleasure to see you today! We will contact you if there are any concerning findings on the final read of your MRI completed today. Please call our office if you develop any new or worsening symptoms in the interim. [phone]. Please schedule a MRI brain prior to follow up with Dr. Bueno in 4 months. Referral placed for dermatology. documented in this encounter [facility] 03-14-2024 Note EXAM: NUC PET NEUROE NDOCRINE, [...] although residual/recurrent disease cannot be entirely excluded. [facility] 03-14-2024 History of Present illness Narrative [...] Dr. Bueno, attending physician. Kristine ABREU, pager [phone] Radiation Oncology Attending Addendum: I saw and [...] with the discharge instructions. Andrew Bueno MD Executive Coach Department of Radiation Oncology Pager: [phone] Office: [phone] Patient seen independently by provider. Annelise Rogers [...] HEALTH TODAY= 75% documented in this encounter [facility] 03-14-2024 Instructions Annelise Rogers RN - 03/14/2024 3:00 PM EDT Please return in 3 month MRI and follow up with Dr. Bueno documented in this encounter [facility] 11-29-2023 History of Present illness Narrative Patient [...] Dr. Bueno, attending physician. Kristine ABREU, pager [phone] Radiation Oncology Attending Addendum: I saw and independently examined this patient today on 11/29/2023. I discussed my findings and the therapeutic plan with Radiation Oncology Nurse Practitioner, Kristine Blue, SALES ACCOUNT MANAGER,HOSE INSPECTOR AND PATCHER. I agree with her history, physical examination, [...] with Tylenol), balance difficulty (plan to restart ND/OT this week), dizziness with position change, left [...] should any questions arise. Documented by Danny Mckeon for Dr. Andrew Bueno on 11/29/2023 4:53 [...] with the discharge instructions. Andrew Bueno MD Executive Coach Department of Radiation Oncology Pager: [phone] Office: [phone] documented in this encounter [facility] 11-29-2023 Instructions LOIS Middleton - 11/29/2023 2:30 PM EDT It was a pleasure to see you today! Please call our office if you develop any new or worsening symptoms in the interim. [phone]. Please schedule a MRI Brain and Neuroendocrine PET scan prior to follow up with Dr. Bueno in 3 months. documented in this encounter [facility] 05-19-2023 History of Present illness Narrative Patient [...] with Dr. Bueno, attending physician. Kristine Blue APRN-[facility], pager [phone] Radiation Oncology Attending Addendum: I saw and independently examined this patient today on 05/19/2023. I discussed my findings and the therapeutic plan with Radiation Oncology HEALTH PROMOTION OFFICER, Kristine. I agree with her history, [...] should any questions arise. Andrew Bueno MD Executive Coach Department of Radiation Oncology Pager: [phone] Office: [phone] Cognitive Function - Short Form 8a (PROMIS [...] not fill out documented in this encounter [facility] 05-19-2023 Instructions Kristine Blue APRN-AGNIESZKA - 05/19/2023 2:30 PM EST It was a pleasure to see you today! Please call our office if you develop any new or worsening symptoms in the interim. [phone]. Please schedule a MRI prior to follow up with Dr. Bueno in 3 months. documented in this encounter [facility] 03-15-2023 History of Present illness Narrative [...] placed, bruised, no active drainage. MD Annelise Deelon, RN RADIATION ONCOLOGY ON-TREATMENT VISIT Date of [...] grossly unchanged from prior examination, no focal MARINE GEAR KEEPER findings. Labs: Lab Results Component Value Date [...] radiation therapy as planned. Andrew Bueno MD Interventionist Department of Radiation Oncology documented in this encounter [facility] 03-15-2023 Instructions Annelise Rogers RN - 03/15/2023 10:00 AM EDT Please return in 2 months with repeat brain MRI and follow up with Dr. Bueno on same day! (Patient cannot do Mondays) documented in this encounter [facility] 03-08-2023 History of Present illness Narrative RADIATION [...] Singh MD documented in this encounter [facility] 03-01-2023 History of Present illness Narrative RADIATION [...] planned. Julian Siddiqui MD Radiation Oncology Resident Pager:[phone] On Treatment Visit Addendum: I saw and [...] will continue radiation therapy as planned. Andrew uBeno MD Executive Coach Department of Radiation Oncology [facility] documented in this encounter [facility] 02-15-2023 History of Present illness Narrative RADIATION [...] VISIT Date of service: 02/15/2023 ID: Sarah Mcguire 77 y.o. female with [...] planned. Julian Siddiqui MD Radiation Oncology Resident Pager:[phone] On Treatment Visit Addendum: I saw and [...] radiation therapy as planned. Andrew Bueno MD Executive Coach Department of Radiation Oncology [facility] documented in this encounter [facility] 02-08-2023 History of Present illness Narrative RADIATION [...] grossly unchanged from prior examination, no focal MARINE GEAR KEEPER findings. Labs: Lab Results Component Value Date [...] radiation therapy as planned. Andrew Bueno MD Interventionist Department of Radiation Oncology documented in this encounter [facility] 01-19-2023 History of Present illness Narrative Sarah Nadeem Mcguire was seen 01/19/2023 in Radiation Oncology for a CT Simulation. Sarah Nadeem Mcguire will start radiation on 02/01/2023 and receive 30 treatments. Final treatment will be on 03/15/2023. Dr. Kincaid's medical oncology group notified by ADDIE samaniego. Assessed pt for any further needs with regard to childcare, spiritual, financial, transportation, or psychosocial issues. Further education was provided to Sarah Silver Frank regarding side effects of radiation, the OTV process, and Time Out procedures prior to daily treatments. No further assistance needed at this time. Annelise Rogers RN documented in this encounter [facility] 01-19-2023 Instructions Annelise Rogers RN - [...] Bueno will see you each TUESDAY at [facility] after your treatment for your [...] for a ticket each day. This includes nnps parking. You will be given information on reserved parking in the [place] garages. You will be given a special wrist band today that you can use to check in for your treatments. You do not need to go to registration before each radiation treatment. If you have appointments with any other department at [facility], you must go to registration prior to those appointments. Please call the radiation clinic at [phone] with any questions or concerns. You can also contact your physician via My Chart with any non-urgent issues. My Chart messages are only reviewed during regular business hours. documented in this encounter [facility] 01-19-2023 History of Present illness Narrative Patient [...] OF PRESENT ILLNESS: As you know, Sarah Mcguire is a 77 y.o. 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 female who [...] with the discharge instructions. Andrew Bueno MD Executive Coach Department of Radiation Oncology Pager: [phone] Office: [phone] documented in this encounter [facility] 12-20-2022 Progress note Note Date/Time December 20, 2022 12:13pm [facility] Medical Records Department [address] [place] [address] Progress Note 12/20/22 1208 MR#: [id number] Acct: [id number] Name: SARAH MCGUIRE Rep #:[id number] : 1945 77 From: Jo-Ann Arias DO PCP: Dr. Monika Venegas MD Status:ADM IN Location: [place] [address]-1 Subjective Subjective Afebrile VSS Maintaining appropriate oxygen [...] cough suppressant. Charges/Coding Visit Charges Inpatient E&M: 68870 Subs Hosp L2 12/20/22 1528 <Electronically signed [...] alvarado DO> Date _ Jo-Ann Arias DO Cosigner Signature (if applicable): Date cc: ~* Signed [facility] Work Phone: 1(906) 887-485607-15-2023 Progress note Author Jo-Ann Arias [facility] December 18, 2022 11:48am Note Date/Time December 17, 2022 6:46 pm [facility] Medical Records Department [address] [place] [address] Progress Note 12/17/22 1844 MR#: [id number] Acct: [id number] Name: SARAH MCGUIRE Rep #:[id number] : 1945 77 From: Jo-Ann Arias DO PCP: Dr. Monika Venegas MD Status:ADM IN Location: [place] [address] Subjective Subjective Afebrile VSS Maintaining appropriate oxygen [...] on Tuesday. Charges/Coding Visit Charges Inpatient E&M: 73104 [facility] Hosp L1 12/18/22 1148 <Electronically signed by Jo-Ann Arias DO> Jo-Ann Arias DO Cosigner Signature (if applicable): CC: ~ Signed [facility] Work Phone: 1(788) 619-571007-15-2023 Progress note Author Jo-Ann Arias [facility] December 18, 2022 11:42am Note Date/Time December 16, 2022 12:2 6pm [facility] Medical Records Department [address] [place] [address] Progress Note 12/16/22 1222 MR#: [id number] Acct: [id number] Name: SARAH MCGUIRE Rep #:[id number] : 1945 77 From: Jo-Ann Arias DO PCP: Dr. Monika Venegas MD Status:ADM IN Location: [place] [address]-1 Subjective Subjective Sarah was seen on team [...] with meals. Charges/Coding Visit Charges Inpatient E&M: 51231 Subs Hosp L2 12/18/22 1142 <Electronically signed by Jo-Ann Arias DO> Jo-Ann Arias DO Cosigner Signature (if applicable): CC: ~ Signed [facility] Work Phone: 1(380) 178-736107-15-2023 Progress note Author Jo-Ann Arias [facility] December 18, 2022 11:30am Note Date/Time December 13, 2022 10:5 9am [facility] Medical Records Department [address] [place] [address] Progress Note 12/13/22 1053 MR#: [id number] Acct: [id number] Name: SARAH MCGUIRE Rep #:[id number] : 1945 77 From: Jo-Ann Arias DO PCP: Dr. Monika Venegas MD Status:ADM IN Location: [place] [address] Subjective Subjective Afebrile VSS-systolic is mildly elevated [...] precautions discontinue. Charges/Coding Visit Charges Inpatient E&M: 19924 Subs Hosp L2 12/18/22 1130 <Electronically signed by Jo-Ann Arias DO> Jo-Ann Arias DO Cosigner Signature (if applicable): CC: ~ Signed [facility] Work Phone: 1(296) 159-457607-07-2023 Progress note Author Jo-Ann Hsiehjenny [facility] December 10, 2022 8:52am Note Date/Time December 10, 2022 8:53a m [facility] Medical Records Department [address] [facility] [place] [address] Progress Note 12/10/22 0833 MR#: [id number] Acct: [id number] Name: SARAH MCGUIRE Rep #:[id number] : 1945 77 From: Jo-Ann Arias DO PCP: Dr. Monika Venegas MD Status:ADM IN Location: [place] [address] Subjective Subjective Saarh was seen yesterday on TEAM rounds and [...] on Tuesday Charges/Coding Visit Charges Inpatient E&M: 12029 Subs Hosp L2 12/10/22 0852 <Electronically signed by Jo-Ann Arias DO> Jo-Ann Arias DO Cosigner Signature (if applicable): CC: ~ Signed [facility] Work Phone: 1(126) 888-777407-07-2023 History and physical note Author Jo-Ann Arias [facility] December 10, 2022 8:33am Note Date/Time December 08, 2022 4:34p m [facility] Medical Records Department [address] [place] [address] Post Admission Physician Radhika 12/08/22 1632 MR#: [id number] Acct: [id number] Name: SARAH MCGUIRE Rep #:[id number] : 1945 77 From: Jo-Ann Arias DO PCP: Dr. Monika Venegas MD Status:ADM IN Location: [place] [address] Admission Information Primary Diagnosis:: Physical debility secondary [...] and Depression Risk of Complications DVT: TORSTEN Hose and - (Heparin 5000 units subcu every [...] Skin integrity and Medication Management Patient needs Administrative Volunteer/ Case Management for: Discharge Planning, Arranging Home [...] Cosigner Signature (if applicable): CC: ~ Signed [facility] Work Phone: 1(291) 705-939207-05-2023 History and physical note Author Jo-Ann [facility] December 08, 2022 4:32pm Note Date/Time December 07, 2022 10:06 am [facility] Medical Records Department [address] [place] [address] History & Physical Exam 12/07/22 0946 MR#: [id number] Acct: [id number] Name: SARAH MCGUIRE Rep #:[id number] : 1945 77 From: Jo-Ann Arias DO PCP: Dr. Monika Venegas MD Status:ADM IN Location: [place] [address] HPI - General General Date of Admission: [...] and recommendation for acute inpt rehab at [place] was made. Sarah was transferred to the acute inpt rehab unit at 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 There were several small foci of acute [...] Needs a 30 day event monitor at [place]. Afebrile VSS -blood pressures have ranged from 124/55 to 157/61 since admission to rehab. Heart rate has ranged from 79-102. Maintaining appropriate oxygen saturation on RA -97 to 99%. Oral intake is good. She ate 75 to 100% of her breakfast today. Oral intake [id number] since admission and this is in less [...] of 63. Triglycerides were within normal limits. [facility] Medical History (Updated 12/08/22 @ 16:[address] Jo-Ann Arias DO) Cerebrovascular disease Hemorrhoids High cholesterol HTN (hypertension) [...] a supplement. Charges/Coding Visit Charges Inpatient E&M: 01607 Init Hosp L3 12/08/22 1632 <Electronically signed by Jo-Ann Arias DO> Cosigner Signature (if applicable): CC: Dr. Monika Venegas MD; Dr. Jo-Ann Arias DO~ Signed [facility] Work Phone: 1(642) 666-110205-05-2023 History and physical note* Qian Randle MD - 10/08/2022 11:45 AM EDT History of Present Illness Ms. Mcguire is a 76 y.o. 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 1. HYPERTENSION- diangosed 6+yrs ago and has been controlled on current meds. BP Readings from Last 3 Encounters: 10/08/22 128/80 09/30/22 196/72 2. HYPERLIPIDEMIA - stable on statins for 6+ yrs. PLAN: No further cardiac testing needed. CARDIAC TESTING: EKG (10/08/2022): sinus bradycardia, HR:57, normal ND interval, no acute abnormality. PULMONARY Social History [...] 1 capsule by mouth daily every morning. Yzisycdvr-Ldrjwkvmuxy-Kgn D (OSTEO BI-FLEX ONE PER DAY PO) [...] URINALYSIS REFLEX TO CULTURE PERFORMABLE EXTRA MICRO ND ECG, CLINIC PERFORMED Lab A/P - Labs [...] proceed with scheduled surgery. 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 1. HYPERTENSION- diangosed 6+yrs ago and has been controlled on current meds. BP Readings from Last 3 Encounters: 10/08/22 128/80 09/30/22 196/72 2. HYPERLIPIDEMIA - stable on statins for 6+ yrs. PLAN: No further cardiac testing needed. CARDIAC TESTING: EKG (10/08/2022): sinus bradycardia, HR:57, normal ND interval, no acute abnormality. PULMONARY Social History [...] 1 capsule by mouth daily every morning. Lvgfolgqu-Ngukxpiqqtp-Xuo D (OSTEO BI-FLEX ONE PER DAY PO) [...] URINALYSIS REFLEX TO CULTURE PERFORMABLE EXTRA MICRO ND ECG, CLINIC PERFORMED Lab A/P - Labs [...] proceed with scheduled surgery. Qian Randle MD [facility] Perioperative Clinic [facility] [address] Review of Systems (OSUROS) Review of [...] disturbance. The patient is nervous/anxious. 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 - [place] your teeth and rinse your mouth the [...] Information Management Department for all records requests. [phone] [phone] AVS/RF [facility] History of Present illness Narrative* Emily Veras [...] hallucinations. Nursing Assessment: Physical Exam * Shaye Weston APRN-HOSE INSPECTOR AND PATCHER - 09/30/2022 12:00 PM EDT Images from the original note were not included. [facility] Neurosurgery Oncology Clinic Dr. Ernie Kincaid MD Professor, Department of Neurosurgery Director of Neurosurgical Oncology [facility] and [place] [address] NEW PATIENT VISIT NOTES Leon Mcguire is a 76 y.o. female with PMH of HTN, HDL, no cancer history who was recently diagnosed with a Left frontotemporal skull lesion that presents to [facility] Neuro[facility]cology [facility] for consultation. Pt felt [...] Surgical History: Procedure Laterality Date BREAST REDUCTION 1997 BREAST LUMPECTOMY Bilateral HEMORRHOIDECTOMY HYSTERECTOMY Social History [...] tablet Take 1 tablet by mouth daily. Binqacrsn-Sdfjqfxokgg-Ihx D (OSTEO BI-FLEX ONE PER DAY PO) [...] cancer history who presents today to [facility] Neurosurgery[facility]cology Clinic for a consultation related to [...] order CT CAP and refer to [facility]cology Clinic. We will see patient [...] of the clinic visit. The nurse practitioner/physician animal care assistant and I have spoken with the patient and provided written and verbal instructions for the patient. The above note has been reviewed and I agree with the assessment and plan. Ernie Kincaid MD [facility] Instructions* Patient Instructions* Hansa Nice RN - 09/30/2022 12:00 PM EDT We are here to assist you through your care at [facility] and Noman Villegas [facility] [place]! Your Care Team from today's visit included: Neurosurgeon- Dr. Ramakrishna Kincaid Nurse Practitioner- Shaye Weston, SALES ACCOUNT MANAGER-HOSE INSPECTOR AND PATCHER Primary Nurse - ROSETTA Hall, RN The Neurosurgery clinic and scheduling staff can be reached at [phone]. Please call if you develop new or worsening symptoms, also with any additional questions regarding your visit today or if you need to contact the doctor. You will speak with a medical scheduler, who will take a message and forward [...] weekends, and/or during a holiday please call [phone] and speak with the after-hours service. You will be connectedto the neurosurgery resident sonographer. New or worsening neurological symptoms can include, but are not limited to: weakness, confusion, difficulty walking, vision/hearing/speech changes, seizures or extremity tremors, and persistent headaches. If it is an emergency you will need to go to your local ER. Ask them to fax your records to us so that we can update our team, fax number [phone]. If you experience seizures affecting the whole [...] our office. Documentation can be faxed to [phone]. Your feedback is important to our team. [...] condition. You will receive this questionnaire via [employer]. Please complete so your providers at [facility] can better help you! documented in this encounter[facility] HospitalDis[facility] summary Author Hayden Sadler [facility] Note Date/Time September 27, 2024 1:3 0pm [facility] Medical Records Department [address] [place] [address] Emergency Department Summary 09/27/24 MR#: [id number] Acct: [id number] Name: SARAH MCGUIRE Rep #:[id number] : 1945 78 From: Hayden Sadler DO [...] her surgery and from the ride from [facility] to [place] and December 2022 she notedthat she has had some numbness and tingling periodically in her left arm but today this felt different therefore her daughter brought her here for further evaluation management. She states that she was sitting eating breakfast when this occurred. Patient states that she is anxious about her symptoms. She states that she is on Eliquis. [facility] Medical History Mitral valve stenosis, non-rheumatic [...] tablet 2 mg PO QHS #90 TABLETS /01/2709/26/24 Rx apixaban 2.5 mg tablet 2.5 mg [...] follow commands knew that she was at [facility] 2024 Skin: Warm, dry, intact Const [...] processes. Did discuss his case with on-call anatomy professor Dr. Calderon who states that she canfollow-up [...] 78.7 H Lymph % (Auto) 10.8 L [place] % (Auto) 8.3 Eos % (Auto) 1.1 [...] No acute abnormality is seen. Reading Location: [facility] Discharge Plan Triage Chief Complaint: Chest Pain [...] symptoms or any other concerns. Print Language: Romanian Disposition Disposition: Home, Self Care What to do if you have Problems For any increased pain, shortness of breath, bleeding, nausea or vomiting, chestpain, or any unexpected problems, contact your Primary Care Provider. Call [facility] ([phone]) or report to the closest Emergency Room. Call 911 if necessary. 09/27/24 1330 <Electronically signed by Hayden Sadler DO> Cosigner Signature (if applicable): CC: Dr. Monika Venegas MD ~ Signed [facility] Work Phone: Evaluation noteNo assessment information available [facility] Work Phone: Evaluation note* Diagnosis Onset Date Resolution Status Scalp lesion chronic Scalp lesion chronic [facility] Work Phone: Evaluation note* Diagnosis Skull mass- Primary Disorder of bone and cartilage, unspecified [facility] Preop exam for internal medicine Other specified pre-operative examination Skull mass Disorder of bone and cartilage, unspecified Essential hypertension Unspecified essential hypertension Hyperlipidemia, unspecified hyperlipidemia type Skull lesion Disorder of bone and cartilage, unspecified [facility] Preop exam for internal medicine- [...] cartilage, unspecified [facility] Diagnosis Skull mass Disorder of bone and cartilage, unspecified Skull lesion Disorder of bone and cartilage, unspecified [facility] Diagnosis Onset Date Resolution Status Scalp lesion chronic Scalp lesion chronic Acute blood loss anemia acut e C. difficile enteritis acute Cerebrovascular disease acut e Excessive cerumen in both ear canals acute H/O craniotomy acute Hyponatremia acute Ischemic cerebrovascular accident (CVA) acute Mitral stenosis acute Physical debility acute Pulmonary hypertension acute Thrush acute Scalp lesion chronic [facility] Work Phone: Evaluation note* Diagnosis Neuroendocrine cancer Other malignant neoplasm without specification of site Cancer of cerebral meninges Malignant neoplasm of cerebral meninges documented [facility] Diagnosis Neuroendocrine cancer- Primary Other malignant neoplasm without specification of site documented [facility] this [facility] Diagnosis Onset Date Resolution Status Acute [...] stenosis, non-rheumatic acute Paroxysmal atrial fibrillation acute [facility] Work Phone: Evaluation note* Diagnosis Cancer of cerebral meninges- Primary Malignant neoplasm of cerebral meninges Neuroendocrine cancer Other malignant neoplasm without specification of site [facility] Diagnosis Neuroendocrine cancer- Primary Other malignant neoplasm without specification of site [facility] Diagnosis Cancer of cerebral meninges- Primary Malignant neoplasm of cerebral meninges [facility] Cancer of cerebral meninges- Primary Malignant neoplasm of cerebral meninges [facility] Diagnosis Cancer of cerebral meninges- Primary Malignant neoplasm of cerebral meninges documented [facility] Diagnosis Cancer of cerebral meninges- Primary Malignant neoplasm of cerebral meninges documented [facility] Diagnosis Onset Date Resolution Status Carotid artery bruit acute Ischemic cerebrovascular accident (CVA) acute long term current use of amiodarone acute Mitral valve stenosis, non-rheumatic acute Paroxysmal atrial fibrillation acute [facility] Work Phone: Evaluation note* Diagnosis Cancer of cerebral meninges Malignant neoplasm of cerebral meninges documented [facility] Diagnosis Cancer of cerebral meninges- Primary Malignant neoplasm of cerebral meninges Neuroendocrine cancer Other malignant neoplasm without specification of site documented [facility] Diagnosis Cancer of cerebral meninges Malignant neoplasm of cerebral meninges Neuroendocrine cancer Other malignant neoplasm without specification of site documented in this [facility] Diagnosis Cancer of cerebral meninges Malignant neoplasm of cerebral meninges Neuroendocrine cancer Other malignant neoplasm without specification of site documented in this [facility] Diagnosis Cancer of cerebral meninges- Primary Malignant neoplasm of cerebral meninges documented [facility] this [facility] Diagnosis Cancer of cerebral meninges Malignant neoplasm of cerebral meninges documented [facility] Diagnosis Cancer of cerebral meninges- Primary Malignant neoplasm of cerebral meninges Skin change Other symptoms involving skin and integumentary tissues Alopecia Alopecia, unspecified S/P radiation therapy Convalescence following radiotherapy documented in this [facility]* Diagnosis 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 Return with worsening symptoms or any other concerns.[facility] Work Phone: Reason for referral (narrative)* Consultation (Urgent) - New Request Specialty Diagnoses / Procedures Referred By Martha maciel Referred To Contact Oncology Diagnoses Skull mass Shaye Weston, SALES ACCOUNT MANAGER-HOSE INSPECTOR AND PATCHER [address] [place] [address] Referral ID Status Reason Start Date Expiration Date V isits Requested Visits Authorized [id number] New Request 09/30/2022 10/25/2023 1 1 * MRI/CAT Scan (Emergency) - New Request Specialty Diagnoses / Procedures Referred By Contac t Referred To Contact Diagnoses Skull mass Procedures CT ABDOMEN/PELVIS WITH CONTRAST CHG CT SCAN,ABDOMENT AND PELVIS,W CONTRAST Shaye Weston APRN-HOSE INSPECTOR AND PATCHER [address] [place] [address] Referral ID Status Reason Start Date Expiration Date V isits Requested Visits Authorized [id number] New Request 09/30/2022 10/25/2023 1 1 * MRI/CAT Scan (Emergency) - New Request Specialty Diagnoses / Procedures Referred By Contac t Referred To Contact Diagnoses Skull mass Procedures CT CHEST WITH CONTRAST CHG DIAGNOSTIC COMPUTED TOMOGRAPHY THORAX W/CONTRAST Shaye Weston APRN-HOSE INSPECTOR AND PATCHER [address] [place] [address] Referral ID Status Reason Start Date Expiration Date V isits Requested Visits Authorized [id number] New Request 09/30/2022 10/25/2023 1 1 [facility] HospitalReason for referral (narrative)No reason for referral information availableWUniversity [facility] Work Phone: Reason for visit Narrative* Auth/Cert Specialty Diagnoses / Procedures Referred By Contac t Referred To Contact Diagnoses Epidural hematoma Subdural Hematoma Jl Nazario MB [facility] [address] [facility] [address] [place] [address] Phone: tel: fax: [facility] [address] [place] [phone] Referral ID Status Reason Start Date Expiration Date Visits Re quested Visits Authorized [id number] 1 1 [facility] Family History Relationship Condition Age at Onset Recorded Date/T emir father Cerebrovascular accident (CVA) Unknown Cardiac disease Unknown mother Diabetes mellitus Unknown Advance Directives Advance Directive Response Recorded Date/ Time Living Will No July 31, 022 8:17pm Power of Snow Technician No July 31, 2021 8:17pm Advance Directive Response Recorded Date/ Time Living Will No July 31, 7:17pm Power of Snow Technician No July 31, 2021 7:17pm Advance Directive Response Recorded Date/ Time Name of Medical Power of Snow Technician herbie Rapp December 10, 2022 11:50am Living Will Yes December 10, 2022 1 1:50am Power of Snow Technician Yes December 10, 2022 11:50am Latest Code [...] Date/ Time Name of Medical Power of Snow Technician herbie Rapp December 10, 2022 11:50am Name of Medical Power of Snow Technician Reggie boudreaux December 23, 2022 6:27pm Living Will Yes December 23, 2022 6:27pm Power of Snow Technician Yes December 23 6:27pm Advance Directive Response Recorded Date/ Time Living Will Yes December 23, 2022 5:27pm Power of Snow Technician Yes December 23 5:27pm Date Activated Date [...] Do you have a Healthcare Power of Snow Technician? Yes September 27, 2024 9:32am Name of Medical Power of Snow Technician Alexsandra September 27, 2024 9:32am Date Activated Date Inactivated Comments 11/08/2024 3:51 PM Date Activated Date Inactivated Comments 11/24/2022 4:41 PM 11/08/2024 3:51 PM Date Activated Date Inactivated Comments 11/17/2022 10:57 AM 11/24/2022 4:41 PM Date Activated Date Inactivated Comments 11/16/2022 5:26 AM 11/16/2022 5:13 PM Date Activated Date Inactivated Comments 10/13/2022 8:29 AM 11/16/2022 5:26 AM Chief Complaint and Reason for Visit Chief [...] RVR AFIB WITH RVR STROKE STROKE S/P [facility] 12/24/22 Reason for Visit Acute blood loss [...] Carotid artery bruit Ischemic cerebrovascular accident (CVA) long term current use of amiodarone Mitral valve stenosis, non-rheumatic Paroxysmal atrial fibrillation Chief Complaint Admit Date chest pain September 27, 2024 9:1 9am Reason for Referral Specialty Diagnoses / Procedures Referred By Martha maciel Referred To Contact Diagnoses Preop exam for internal medicine Skull mass Essential hypertension Hyperlipidemia, unspecified hyperlipidemia type Procedures PREPARE TO TRANSFUSE OR RED BLOOD CELLS Qian Randle MD [address] [facility] [address] [place] [address] Referral ID Status Reason Start Date Expiration Date V isits Requested Visits Authorized [id number] New Request 10/08/2022 11/02/2023 1 1 Specialty Diagnoses / Procedures Referred By Martha maciel Referred To Contact Diagnoses Skull mass Procedures MRI STEALTH BRAIN ND MRI BRAIN [place] Shaye Weston, SALES ACCOUNT MANAGER-HOSE INSPECTOR AND PATCHER [address] [place] [address] Referral ID Status Reason Start Date Expiration Date V isits Requested Visits Authorized [id number] New Request 10/08/2022 11/02/2023 1 1 Specialty Diagnoses / Procedures Referred By Contac t Referred To Contact Diagnoses Neuroendocrine cancer Cancer of cerebral meninges Procedures MRI BRAIN WITH PERFUSION ND MRI BRAIN Andrew Sher MD [address] [place] [address] Referral ID Status Reason Start Date Expiration Date V isits Requested Visits Authorized [id number] New Request 01/06/2023 01/31/2024 1 1 Specialty Diagnoses / Procedures Referred By Contac t Referred To Contact Diagnoses Neuroendocrine cancer Cancer of cerebral meninges Procedures NUC PET NEUROENDOCRINE CHG NUC THERAPY HYPERTHYROID SUBSEQUENT Andrew Bueno MD [address] [place] [address] Referral ID Status Reason Start Date Expiration Date V isits Requested Visits Authorized [id number] New Request 01/06/2023 01/31/2024 1 1 Specialty Diagnoses / Procedures Referred By Contac t Referred To Contact Diagnoses Cancer of cerebral meninges Procedures MRI BRAIN WITH PERFUSION ND MRI BRAIN Andrew Sher MD [address] [place] [phone] Referral ID Status Reason Start Date Expiration Date V isits Requested Visits Authorized [id number] New Request 03/15/2023 04/08/2024 1 1 Specialty Diagnoses / Procedures Referred By Contac t Referred To Contact Diagnoses Cancer of cerebral meninges Procedures MRI BRAIN WITH PERFUSION ND MRI BRAIN COMBO Kristine Blue APRN-HOSE INSPECTOR AND PATCHER [address] [place] [address] Referral ID Status Reason Start Date Expiration Date V isits Requested Visits Authorized [id number] New Request 05/19/2023 06/12/2024 1 1 Referral ID Status Reason Start Date Expiration Date V isits Requested Visits Authorized [id number] New Request 08/23/2023 09/16/2024 1 1 Specialty Diagnoses / Procedures Referred By Contac t Referred To Contact Diagnoses Cancer of cerebral meninges Neuroendocrine cancer Procedures NUC PET NEUROENDOCRINE CHG PET IMAGING CT ATTENUATION SKULL BASE MID-THIGH Andrew Bueno MD [address] [place] [address] Referral ID Status Reason Start Date Expiration Date V isits Requested Visits Authorized [id number] New Request 11/29/2023 12/23/2024 1 1 Specialty Diagnoses / Procedures Referred By Contac t Referred To Contact Diagnoses Cancer of cerebral meninges Neuroendocrine cancer Procedures MRI BRAIN WITH PERFUSION CHG MRI BRAIN BRAIN STEM W/O W/CONTRAST MATERIAL Andrew Bueno MD [address] [place] [address] Referral ID Status Reason Start Date Expiration Date V isits Requested Visits Authorized [id number] New Request 11/29/2023 12/23/2024 1 1 Specialty Diagnoses / Procedures Referred By Contac t Referred To Contact Diagnoses Cancer of cerebral meninges Procedures MRI BRAIN WITH PERFUSION CHG MRI BRAIN BRAIN STEM W/O W/CONTRAST MATERIAL Kristine Blue APRN-HOSE INSPECTOR AND PATCHER [address] Floor [facility] [address] [place] [address] Referral ID Status Reason Start Date Expiration Date V isits Requested Visits Authorized [id number] New Request 03/14/2024 04/08/2025 1 1 Summary [...] Dr. Monika Venegas MD Primary Care Provider, [facility] Provider Active Dr. Rock Downing MD Attending [...] ESQUIVEL Attending Provider, Referring Provide r Active Storage Administrator Relationship Specialty Start Date End Date Monika Venegas MD [address] [place] [phone] PCP - General Family Medicine 09/28/22 Storage Administrator Relationship Specialty Start Date End Date Monika Venegas MD [address] [place] [phone] PCP - General Family Medicine 09/28/22 Storage Administrator Relationship Specialty Start Date End Date Monika Venegas MD [address] [place] [phone] PCP - General Family Medicine 09/28/22 Storage Administrator Relationship Specialty Start Date End Date Monika Venegas MD [address] [place] [phone] PCP - General Family Medicine 09/28/22 Storage Administrator Relationship Specialty Start Date End Date Monika Venegas MD [address] [place] [phone] PCP - General Family Medicine 09/28/22 Team [...] Pr ovider, Attending Provider, Referring Provider Active Storage Administrator Relationship Specialty Start Date End Date Monika Venegas MD [address] [place] [phone] PCP - General Family Medicine 09/28/22 Storage Administrator Relationship Specialty Start Date End Date Monika Venegas MD [address] [place] [phone] PCP - General Family Medicine 09/28/22 Storage Administrator Relationship Specialty Start Date End Date Monika Venegas MD [address] [place] [phone] PCP - General Family Medicine 09/28/22 Team [...] Rivera MD Other Provider Active Jagdish Moncada HEALTH PROMOTION OFFICER, HEALTH PROMOTION OFFICER-C Other Provider Active Kourtney Beasley HEALTH PROMOTION OFFICER, HEALTH PROMOTION OFFICER-C Other Provider Active Lolly Alejandra PA, [...] Rivera MD Other Provider Active Jagdish Moncada HEALTH PROMOTION OFFICER, HEALTH PROMOTION OFFICER-C Other Provider Active Kourtney Beasley HEALTH PROMOTION OFFICER, HEALTH PROMOTION OFFICER-C Other Provider Active Lolly Alejandra PA, [...] Rivera MD Other Provider Active Jagdish Moncada HEALTH PROMOTION OFFICER, HEALTH PROMOTION OFFICER-C Other Provider Active Kourtney Beasley HEALTH PROMOTION OFFICER, HEALTH PROMOTION OFFICER-C Other Provider Active Lolly Alejandra PA, PA Other Provider Active Dr. Alix Hudson DO Attending Provider Active Storage Administrator Relationship Specialty Start Date End Date Monika Venegas MD [address] [place] [phone] PCP - General Family Medicine 09/28/22 Storage Administrator Relationship Specialty Start Date End Date Monika Venegas MD [address] [place] [phone] PCP - General Family Medicine 09/28/22 Storage Administrator Relationship Specialty Start Date End Date Monika Venegas MD [address] [place] [phone] PCP - General Family Medicine 09/28/22 Storage Administrator Relationship Specialty Start Date End Date Monika Venegas MD [address] [place] [phone] PCP - General Family Medicine 09/28/22 Storage Administrator Relationship Specialty Start Date End Date Monika Venegas MD [address] [place] [address] PCP - General Family Medicine 09/28/22 Storage Administrator Relationship Specialty Start Date End Date Monika Venegas MD [address] [place] [address] PCP - General Family Medicine 09/28/22 Storage Administrator Relationship Specialty Start Date End Date Monika Venegas MD [address] [place] [phone] PCP - General Family Medicine 09/28/22 Storage Administrator Relationship Specialty Start Date End Date Monika Venegas MD [address] [place] [address] PCP - General Family Medicine 09/28/22 Storage Administrator Relationship Specialty Start Date End Date Monika Venegas MD [address] [place] [phone] PCP - General Family Medicine 09/28/22 Team Status: Inactive Member Role Status Dates Dr. Monika Venegas MD Primary Care Provider Active Lolly Alejandra PA, PA Attending Provider, Referr ing Provider Active Team Status: Active Member Role Status Dates Dr. Monika Venegas MD Primary Care Prov ider, Attending Provider, Referring Provider Active Storage Administrator Relationship Specialty Start Date End Date Monika Venegas MD [address] [place] [phone] PCP - General Family Medicine 09/28/22 Storage Administrator Relationship Specialty Start Date End Date Monika Venegas MD [address] [place] [phone] PCP - General Family Medicine 09/28/22 Storage Administrator Relationship Specialty Start Date End Date Monika Venegas MD [address] [place] [address] PCP - General Family Medicine 09/28/22 Storage Administrator Relationship Specialty Start Date End Date Monika Venegas MD [address] [place] [address] PCP - General Family Medicine 09/28/22 Team Status: Active Member Role Status Dates Dr. Monika Venegas MD Primary Care Provider Active Team Status: Inactive Member Role Status Dates Dr. Monika Vneegas MD Primary Care Provider Active Start: June [...] September 27, 2024 End: September 27, 2024 Storage Administrator Relationship Specialty Start Date End Date Monika Venegas MD PCP - General Family Medicine 09/28/22 Reason for Visit (unrecogniz ed section and content) Reason Comments New Patient Specialty Diagnoses / Procedures Referred By Martha t Referred To Contact Neurologic Surgery Diagnoses Neoplasm of bone of skull Monika Venegas MD [address] [place] [address] [facility] [address] [place], [place] [phone] Referral ID Status Reason Start Date Expiration Date V isits Requested Visits Authorized [id number] Pending Review 09/27/2022 10/22/2023 1 1 Reason Comments Pre-operative Consultation Specialty Diagnoses / Procedures Referred By Contac t Referred To Contact PreOp Diagnoses Skull mass Mak Westonkleber Eldridge, SALES ACCOUNT MANAGER-HOSE INSPECTOR AND PATCHER [address] [place] [address] Referral ID Status Reason Start Date Expiration Date V isits Requested Visits Authorized [id number] New Request 10/07/2022 11/01/2023 1 1 Specialty Diagnoses / Procedures Referred By Contac t Referred To Contact Diagnoses Skull mass Procedures MRI STEALTH BRAIN ND MRI BRAIN COMBO Shaye Weston, SALES ACCOUNT MANAGER-HOSE INSPECTOR AND PATCHER [address] [place] [phone] Referral ID Status Reason Start Date Expiration Date V isits Requested Visits Authorized [id number] New Request 10/08/2022 11/02/2023 1 1 Specialty Diagnoses / Procedures Referred By Contac t Referred To Contact Diagnoses Neuroendocrine cancer Cancer of cerebral meninges Procedures MRI BRAIN WITH PERFUSION ND MRI BRAIN COMBO Andrew Bueno MD [address] [place] [address] Referral ID Status Reason Start Date Expiration Date V isits Requested Visits Authorized [id number] New Request 01/06/2023 01/31/2024 1 1 Specialty Diagnoses / Procedures Referred By Contac t Referred To Contact Diagnoses Neuroendocrine cancer Cancer of cerebral meninges Procedures NUC PET NEUROENDOCRINE CHG NUC THERAPY HYPERTHYROID SUBSEQUENT Andrew Bueno MD [address] [address] Referral ID Status Reason Start Date Expiration Date V isits Requested Visits Authorized [id number] New Request 01/06/2023 01/31/2024 1 1 Reason Comments Continuity Of Care Specialty Diagnoses / Procedures Referred By Contac t Referred To Contact Diagnoses Neuroendocrine cancer Cancer of cerebral meninges Procedures RAD ONC SIMULATION Andrew Bueno MD [address] [place] [phone] Referral ID Status Reason Start Date Expiration Date Visits Re quested Visits Authorized [id number] Closed 01/06/2023 01/31/2024 1 1 Reason Comments Consult Reason Comments On Treatment Visit Reason Comments On Treatment Visit Reason Comments Follow-up Specialty Diagnoses / Procedures Referred By Contac t Referred To Contact Diagnoses Cancer of cerebral meninges Procedures MRI BRAIN WITH PERFUSION ND MRI BRAIN SCOTTO Kristine Blue APRN-HOSE INSPECTOR AND PATCHER [address] [place] [phone] Referral ID Status Reason Start Date Expiration Date V isits Requested Visits Authorized [id number] New Request 05/19/2023 06/12/2024 1 1 Specialty Diagnoses / Procedures Referred By Contac t Referred To Contact Diagnoses Cancer of cerebral meninges Procedures MRI BRAIN WITH PERFUSION ND MRI BRAIN COMBAndrew Santana MD [address] [place] [phone] Referral ID Status Reason Start Date Expiration Date V isits Requested Visits Authorized [id number] New Request 08/23/2023 09/16/2024 1 1 Reason Comments Follow-up Specialty Diagnoses / Procedures Referred By Contac t Referred To Contact Diagnoses Cancer of cerebral meninges Neuroendocrine cancer Procedures NUC PET NEUROENDOCRINE CHG PET IMAGING CT ATTENUATION SKULL BASE MID-THIGH Andrew Bueno MD [address] [place] [phone] Referral ID Status Reason Start Date Expiration Date V isits Requested Visits Authorized [id number] New Request 11/29/2023 12/23/2024 1 1 Specialty Diagnoses / Procedures Referred By Contac t Referred To Contact Diagnoses Cancer of cerebral meninges Neuroendocrine cancer Procedures MRI BRAIN WITH PERFUSION CHG MRI BRAIN BRAIN STEM W/O W/CONTRAST MATERIAL Andrew Bueno MD [address] [place] [phone] Referral ID Status Reason Start Date Expiration Date V isits Requested Visits Authorized [id number] New Request 11/29/2023 12/23/2024 1 1 Specialty Diagnoses / Procedures Referred By Contac t Referred To Contact Diagnoses Cancer of cerebral meninges Procedures MRI BRAIN WITH PERFUSION CHG MRI BRAIN BRAIN STEM W/O W/CONTRAST MATERIAL Su, Kristine Haro, SALES ACCOUNT MANAGER-HOSE INSPECTOR AND PATCHER [address] [place] [phone] Referral ID Status Reason Start Date Expiration Date V isits Requested Visits Authorized [id number] New Request 03/14/2024 04/08/2025 1 1 INFORMATION SOURCE (unrecogn ized section and content) DATE CREATED AUTHOR 11/12/2024 [facility] DATE CREATED AUTHOR AUTHOR'S ORGANIZ ATION 11/12/2024 [facility] Scheduled Active and Recently Administ ered Medications (unrecognized section and content) Medication Order 11/10/2024 11/11/2024 11/12/2024 AMIOdarone (PACERONE) tablet 200 mg 200 mg, Oral, DAILY, First dose on Donita 11/08/24 at 1615, Until Discontinued 0840 (Given - Provider: Greta Yoder RN) 0927 (Given - Provider: Greta Yoder RN) 0831 (Given - Provider: Shanna Benavides RN) apixaban (ELIQUIS) tablet 2.5 mg 2.5 mg, Oral, EVERY 12 HOURS, First dose on Donita 11/08/24 at 2100, Until Discontinued, Due to the rapid onset of action of apixaban, no overlap is needed with other anticoagulants (e.g. enoxaparin, heparin)., Indications: Atrial Fibrillation, On hold since Donita 11/08/2024 at 1610 until manually unheld 0900 (Automatically Held)2100 (Automatically Held) 0900 (Automatically Held)2100 (Automatically Held) 0900 (Automatically Held)1804 (Unheld by provider - Provider: System Discharge) Atorvastatin (LIPITOR) tablet 10 mg 10 mg, Oral, DAILY AT BEDTIME, First dose on Tue11/08/24 at 2100, Until Discontinued 2015 (Given - Provider: Sharlene Moses RN) 2100 (Given - Provider: Ashley Blake RN) carveDILOL (COREG) tablet 12.5 mg 12.5 mg, Per NG tube, EVERY 12 HOURS, First dose on Tue11/08/24 at 2100, Until Discontinued, On hold since Tue11/08/2024 at 1610 until manually unheld 0900 (Automatically Held)2100 (Automatically Held) 0900 (Automatically Held)2100 (Automatically Held) 0900 (Automatically Held)1804 (Unheld by provider - Provider: System Discharge) cefTRIAXone (ROCEPHIN) 1 g in dextrose 50ml premix IVPB 1 g, Intravenous, Administer over 30 Minutes, DAILY, First dose on Tue11/09/24 at 1030, Until Discontinued 1303 ($$New Bag$$ - Provider: Greta Yoder RN)1333 (Stopped - Provider: Greta Yoder RN) 1007 ($$New Bag$$ - Provider: Greta Yoder RN)1032 (Stopped - Provider: Shanna Benavides RN)1034 (Stopped - Provider: Shanna Benavides RN)1418 (Stopped - Provider: Greta Yoder RN) 1025 ($$New Bag$$ - Provider: Shanna Benavides RN)1025 (Rate/Dose Verify - Provider: Shanna Benavides RN)1054 (Stopped - Provider: Shanna Benavides RN) Gadopiclenol SOLN 1-25 mL (COMPLETED) 1-25 mL, Intravenous, ONCE, 1 dose, On Tue11/10/24 at 1100 1059 (Given - Provider: Aubrie Henderson) levETIRAcetam (KEPPRA) injection 1,000 mg (CANCELED) 1,000 mg, Intravenous, EVERY 12 HOURS NON-STANDARD, First dose on Tue11/07/24 at 1430, Until Discontinued, Administer by IV push at a rate not to exceed 500 mg/min. 0323 (Given - Provider: Sharlene Moses, MICAH) levETIRAcetam (KEPPRA) tablet 1,000 mg 1,000 mg, Oral, EVERY 12 HOURS, First dose on Tue11/10/24 at 0900, Until Discontinued 0839 (Given - Provider: Greta Yoder, MICAH)2015 (Given - Provider: Sharlene Moses RN) 09 (Given - Provider: Greta Yoder RN)2099 (Given - Provider: Ashley Blake RN) 0831 (Given - Provider: Shanna Benavides, RN) Lisinopril (PRINIVIL) tablet 10 mg 10 mg, Oral, DAILY, First dose (after last modification) on Tue11/11/24 at 0900, Until Discontinued 09 (Given - Provider: Greta Yoder RN) 0831 (Given - Provider: Shanna Benaivdes, RN) Lisinopril (PRINIVIL) tablet 2.5 mg (CANCELED) 2.5 mg, Oral, DAILY, First dose on 11/10/24 at 0900, Until Discontinued 0839 (Given - Provider: Greta Yoder RN) Polyethylene glycol (MIRALAX) packet 17 g 17 g, Oral, DAILY, First dose on Tue11/09/24 at 0900, Until Discontinued 0840 (Given - Provider: Greta Yoder RN) 09 (Given - Provider: Greta Yoder RN) 0831 (Given - Provider: Shanna Benavides, MICAH) Spironolactone (ALDACTONE) tablet 25 mg (CANCELED) 25 mg, Oral, DAILY, First dose on Tue11/09/24 at 0900, Until Discontinued 0840 (Given - Provider: Greta Yoder RN) PRN Medication Order 11/10/2024 11/11/2024 11/12/2024 Acetaminophen (TYLENOL) tablet 650 mg 650 mg, Oral, EVERY 6 HOURS NEEDED, Starting on Donita 11/08/24 at 1551, Until 11/12/24 at 1804, Mild Pain, Oral temp > 100.4 F, Headaches, Alternate with ibuprofen if ordered, Maximum dose of acetaminophen is 4000 mg from all sources in 24 hours or 2000 mg from all sources in patients with cirrhosis in 24 hours. 0840 (Given - Provider: Greta Yoder RN)1724 (Given - Provider: Greta Yoder RN) 0444 (Given - Provider: Sharlene Moses RN)1407 (Given - Provider: Greta Yoder RN) 1317 (Given - Provider: Shanna Benavides, MICAH) guaiFENesin (ROBITUSSIN) oral solution 400 mg 400 mg, Oral, EVERY 6 HOURS NEEDED, Starting on Donita 11/08/24 at 1549, Until Tue11/12/24 at 1804, Cough, Congestion Melatonin tablet 6 mg 6 mg, Oral, DAILY AT BEDTIME NEEDED, Starting on Donita 11/08/24 at 1549, Until Tue11/12/24 at 1804, Insomnia 2100 (Given - Provider: Ashley Blake RN) Ondansetron (ZOFRAN-ODT) disintegrating tablet 4 mg(Linked Group 1) 4 mg, Oral, EVERY 6 HOURS NEEDED, Starting on Donita 11/08/24 at 1551, Until Tue11/12/24 at 1804, Nausea / Vomiting Ondansetron 4mg/2ml (ZOFRAN) injection 4 mg(Linked Group 1) 4 mg, Intravenous, EVERY 6 HOURS NEEDED, Starting on Donita 11/08/24 at 1551, Until Tue11/12/24 at 1804, Nausea / Vomiting Senna (SENOKOT) tablet 8.6 mg 8.6 mg, Oral, DAILY NEEDED, Starting on Donita 11/08/24 at 1551, Until Tue11/12/24 at 1804, Constipation 1st Line Sodium chloride 0.9% IV solution 250 mL Intravenous, at 20 mL/hr, NEEDED, Starting on Donita 11/08/24 at 1549, Until Tue11/12/24 at 1804, Carrier Fluid - See Admin. Inst, 250mL 0.9NS to be used as carrier fluid for intermittent small volume or piggyback medication administration as needed. Infusion rate of the carrier fluid should be set at 20 mL/hr unless the rate as the intermittent medication is less than 20 mL/hr. For intermittent medications with a rate less than 20 mL/hr set the carrier fluid at that rate of the intermittent or piggy back medication. Linked Groups Order Group 1: Ondansetron 4mg/2ml (ZOFRAN) injection 4 mgJump to med 4 mg, Intravenous, EVERY 6 HOURS NEEDED, Starting on Donita 11/08/24 at 1551, Until Tue11/12/24 at 1804, Nausea / Vomiting Or Ondansetron (ZOFRAN-ODT) disintegrating tablet 4 mgJump to med 4 mg, Oral, EVERY 6 HOURS NEEDED, Starting on Donita 11/08/24 at 1551, Until 11/12/24 at 1804, Nausea / Vomiting FOR RECORDS PERTAINING TO PATIENTS WHO ARE [...] BE BASED ON THE PRIMARY CLINICAL RECORDS. [facility] [employer] [facility]. provides no warranty or guarantee of the accuracy or completeness of information in this document.
[2024-11-13 05:30] VITALS: BP 170/44; PULSE 59; RESP 17; TEMP 37.1; O2SAT 98
[2024-11-13 06:57] LABS: Hematocrit 30.8 % (37-47); Hemoglobin 11.1 g/dL (12.0-15.0); Mean Corpuscular Hgb 33.3 pg (27.0-32.0); Mean Corpuscular Volume 92.5 fL (81-99); Mean Platelet Vol. 10.1 fl (6.2-12.0); Platelet Count 204 K/mm3 (150-450); RBC Distribution Width CV 13.2 % (11.6-14.6); RBC Distribution Width SD 44.3 fl (35.1-43.9); Red Blood Count 3.33 M/mm3 (4.2-5.4)
[2024-11-13 07:20] LABS: Phosphorus 3.9 mg/dL (2.7-4.5)
[2024-11-13 07:24] LABS: ALB/GLOB Ratio 1.8 RATIO (0.9-2.4); AST(SGOT) 57 U/L (<=31); Alanine Aminotransfer ALT/SGPT 82 U/L (<=34); Albumin, Serum 3.9 g/dL (3.4-4.8); Alkaline Phosphatase 81 U/L (35-104); Anion Gap 10 (5-15); BUN 20 mg/dL (4-19); BUN/Creat Ratio 22.2 RATIO (10-20); Calcium,Total 9.4 mg/dL (7.6-11.0); Chloride 95 mmol/L (98-108); Creatinine, Serum 0.89 mg/dL (0.70-1.20); EST Glomerular Filtration Rate 66 (>60); Estimated Creatinine Clearance 36.21 ml/min (50-250); Globulin 2.2 g/dL (2.2-4.2); Glucose 95 mg/dL (70-99); Potassium 4.7 mmol/L (3.3-5.1); Protein, Total 6.1 g/dL (5.9-8.4); Sodium Level 127 mmol/L (133-145); Total Bilirubin 0.71 mg/dL (0.00-1.30)
[2024-11-13] MEDS: Amiodarone 200 MG Tablet PO (08:35)
[2024-11-13] MEDS: Lisinopril 10 MG Tablet PO (08:35)
[2024-11-13] MEDS: levETIRAcetam 1,000 MG Tablet 1000 MG PO ×2 (08:35→22:02)
[2024-11-13] MEDS: Cefdinir 300 MG Capsule PO ×2 (08:35→22:02)
--- NOTE | 2024-11-13 10:50 | PCM.HP.STD ---
HPI - General General Date of Admission: 11/12/24 Date of Service: 11/13/24 HPI Narrative FREDO MCGUIRE, is a 78 YO F with a PMH of paroxysmal atrial fibrillation, hypertension, hyperlipidemia, CVA (following resection of meningioma in December of 2022), chronic hyponatremia, large meningioma resected at [facility] by Dr. Kincaid in December of 2022, cerebral vascular disease involving multiple intracerebral arteries, rheumatic mitral stenosis, pulmonary hypertension with a PA systolic estimated at 48 in December 2022, hx of epidural hematoma (post op) and C DIFF infection in the past who presented to the emergency department at [facility] on 11/07/2024 complaining of increased slurred speech over her baseline and difficulty ambulating. Noncontrast brain CT showed a moderate-sized mixed density left subdural fluid collection concerning for bleeding. She was transferred to [facility] ED for possible subdural hematoma. She was given Kcentra in the ED prior to transfer to reverse the Apixaban. MRI of the brain, MRA brain and MRA neck showed no evidence of a new CVA. Neurology evaluated the patient and felt her history was highly suggestive of seizures although no epileptic discharges were captured on EEG. She had continuous left hemispheric polymorphic theta slow-wave activity indicative of a structural lesion over the left hemisphere and this is the area where she had the craniotomy in 2022. She was started on Keppra 1000 mg p.o. twice daily. Neurosurgery was consulted for the extradural fluid collection and recommended holding anticoagulation for at least 2 weeks since she could have a subacute on chronic extradural fluid collection related to a fall she had approximately 1 month prior to presenting to the emergency department at [facility].. Coreg was held for bradycardia but, amiodarone was continued. Blood pressures were high so lisinopril was increased to 10 mg daily. Doxazosin, HCTZ and spironolactone were discontinued. Serum osmolality was low at [facility] but, I could not find a urine osmolality or urine sodium in my review of the chart. Speech was back to baseline at the time of DC from [facility]. She was seen by PT/OT/ST at [facility] and acute rehab was recommended at DC. She was transferred to the acute inpt rehab unit at [facility] on 11/12/24 for 3 hours of therapy daily to restore function/independence at or near her level prior to recent events. Since her craniotomy in 2022 she requires assistance from family for many ADL's. All lab drawn this AM was personally reviewed. White blood cell count is normal at 7. Hemoglobin is mildly decreased at 11.1 which is stable from a CBC done in September 2024. Platelets are within normal limits. MCV is normal. RDW is very mildly increased at 44.3. Sodium is low at 127 and the potassium is 4.7. Sodium has been low since December 2022. Chloride is low at 95. BUN is 20 with a creatinine of 0.89 which is stable from creatinine on 09/27/2024. GFR is 66 which is consistent with stage II chronic renal failure. Calcium and phosphorus are normal. Magnesium is 2.0. Bilirubin and alkaline phosphatase are within normal limits however AST and ALT are mildly elevated at 57 and 82 respectively. Blood pressure since arrival on rehab has ranged from 115/36 to 170/44. Heart rate has ranged from 54-66. Postvoid residuals x 3 are all less than 100. [facility] Medical History (Updated 11/13/24 @ 14:[address] Jo-Ann Arias, ) Presbycusis History of rheumatic fever as a child Grade II diastolic dysfunction Ischemic cerebrovascular accident (CVA) Intracranial epidural hematoma Cerebrovascular disease Mitral stenosis Pulmonary hypertension Stroke/cerebrovascular accident Scalp lesion Hemorrhoids High cholesterol HTN (hypertension) Home Medications ?Medication ?Instructions ?Recorded ?Last Taken ?Type multivitamin 1 tablet PO DAILY supplement 08/12/20 12/24/22 10:00 History cholecalciferol (vitamin D3) 125 125 mcg PO DAILY supplement 08/14/20 12/24/22 08:00 History mcg (5,000 unit) capsule cyanocobalamin (vitamin B-12) 500 1,000 mcg PO DAILY supplement 08/14/20 12/24/22 10:00 History mcg chewable tablet zinc sulfate 50 mg zinc (220 mg) 220 mg PO DAILY vitamin 12/06/22 12/24/22 10:00 History capsule (Orazinc) amiodarone 200 mg tablet 200 mg PO DAILY heart #90 TABLETS 12/12/23 11/12/24 08:30 Rx atorvastatin 10 mg tablet 10 mg PO QHS for cholesterol #90 12/12/23 11/11/24 21:08 Rx TABLETS apixaban 2.5 mg tablet 2.5 mg PO BID called to [facility] 08/13/24 09/27/24 Rx [facility] tabs acetaminophen 325 mg capsule 325 mg PO Q4H PRN pain 11/12/24 11/12/24 13:15 History cefdinir 300 mg capsule 300 mg PO BID UTI 11/12/24 Unknown History levetiracetam 1,000 mg tablet 1,000 mg PO BID Seizures 11/12/24 11/12/24 08:30 History (Keppra) lisinopril 10 mg tablet 10 mg PO DAILY BP 11/12/24 Unknown History magnesium chloride 64 mg PO QHS Supplement 11/12/24 Unknown History Allergy/AdvReac Type Severity Reaction Status Date / Time No Known Allergies Allergy Verified 11/07/24 11:15 Family History Father CVA (cerebral vascular accident) Heart disease Mother Diabetes Surgical History (Updated 11/13/24 @ 14:[address] Jo-Ann Arias DO) H/O craniotomy Status post hemorrhoidectomy (~08/19/20) S/P carpal tunnel release S/P bilateral breast reduction S/P hysterectomy Social History (Updated 11/13/24 @ 14:[address] Jo-Ann Arias DO) household members: children and other details: BRADY Upton lives with her. housing: house current occupational status: retired Smoking Status: Never smoker alcohol intake: never ROS Review of Systems ROS Unobtainable: Denies due to mental status Constitutional Constitutional: Reports fatigue and weakness; Denies anorexia, change in weight, chills, fever(s) or night sweats Eyes Eyes: Denies blurry vision, change in vision, eye pain or loss of vision ENT HEENT: Reports abnormal hearing and hearing loss; Denies dizziness, dysphagia, headache(s), mouth pain, nasal congestion or sore throat Cardiovascular Cardiovascular: Denies chest pain, dyspnea on exertion, edema, lightheadedness, orthopnea, palpitations, paroxysmal nocturnal dyspnea or syncope Respiratory/Chest Respiratory/Chest: Denies cough, dyspnea, shortness of breath at rest, shortness of breath with exertion or wheezing Gastrointestinal Gastrointestinal: Denies abdominal pain, constipation, diarrhea, dyspepsia, hematemesis, hematochezia, nausea or vomiting Genitourinary Genitourinary: Reports other Details: Being treated for a UTI at presentation to rehab with Cefdinir ; Denies dysuria, hematuria, nocturia, urinary frequency, urinary hesitancy, urinary incontinence or urinary urgency Musculoskeletal Musculoskeletal: Denies back pain, joint pain, joint swelling or neck pain Integumentary Integumentary: Reports alopecia and dry skin; Denies jaundice, pruritus or rash Neurologic Neurologic: Reports confusion, headache(s) and other Details: scored 41/50 on BCAT but, having some issues with memory. Unclear from her hx if she has frequent falls at home or not. ; Denies disequilibrium, dizziness, focal weakness, paresthesias, radicular pain, restless legs, seizures, syncope or tremor(s) Psychiatric Psychiatric: Reports memory loss; Denies anxiety, depression, homicidal ideation, hopelessness, suicidal ideation or visual hallucinations Endocrine Endocrinology: Denies change in body appearance, polydipsia or polyuria Hematologic/Lymphatic Hematologic/Lymphatic: Reports easy bleeding and easy bruising; Denies lymphadenopathy Allergic/Immunologic Allergic/Immunologic: Denies rhinitis, eczemia or asthma Vital Signs Vital Signs Vital Signs: 11/12/24 18:45 11/12/24 21:06 11/12/24 21:27 Temperature 98.9 F 99.3 F H Temperature Source Temporal Temporal Pulse Rate 57 L 66 54 L Respiratory Rate 16 18 Respiratory Effort Normal Non-Labored Respiratory Depth Normal Respiratory Pattern Normal Blood Pressure 120/43 L 115/36 L Blood Pressure Mean 68 62 Blood Pressure Source Monitor Monitor Blood Pressure Position Semi-Fowlers Semi-Fowlers Blood Pressure Location Left Arm Left Arm Pulse Ox 97 95 Oxygen Delivery Method Room Air Room Air Room Air 11/13/24 05:30 Temperature 98.7 F Temperature Source Temporal Pulse Rate 59 L Respiratory Rate 17 Respiratory Effort Respiratory Depth Respiratory Pattern Blood Pressure 170/44 H Blood Pressure Mean 86 Blood Pressure Source Monitor Blood Pressure Position Semi-Fowlers Blood Pressure Location Left Arm Pulse Ox 98 Oxygen Delivery Method Room Air Weight Weight: 105 lb 6.095 oz Body Mass Index (BMI) 24.5 Physical Exam Const alert, oriented x3 and no apparent distress Constitutional Narrative: Sitting in bed when I examined her. General Appearance: cooperative and well kempt; Negative for anxious HEENT head/scalp atraumatic HEENT Narrative: She has localized alopecia of L frontal temporal area from previous craniotomy. She also has some age related hair loss in other areas of the scalp. No bruising of the scalp noted. No hematomas. Told me she fell to the floor about 1 month ago but, she did not hit her head and she did not lose consciousness......her legs just gave out. Very slight asymmetry of the smile.........less teeth on the Left side when smiling. No pain with palpation of the skull. Mucous membranes are moist. No evidence of thrush. General Ear: other Other Details: Hard of hearing and need to repeat things when speaking with her. Eyes PERRL, EOMs intact bilaterally, conjunctivae normal and no scleral icterus Eyes Narrative: No discharge from the eyes. General Eye: normal appearance of both eyes Neck Neck Narrative: She has loud bruits in both carotids....whether these are bruits or radiation of the MM I can not tell. MRA of the neck recently did not mention any significant carotid stenosis General: trachea midline Chest Chest: symmetrical chest wall rise Resp normal respiratory effort, normal air movement and clear to auscultation bilaterally Effort and Inspection: able to speak in complete sentences Cardio regular rate, regular rhythm, no rub and no gallops Cardio Narrative: No ectopy. She has a 3/6 PATY at the second RICS with radiation to the LVOT, LLSB, apex, carotids and into the left axilla. No diastolic MM appreciated. GI normal to inspection, nondistended, normoactive bowel sounds, soft to palpation and non-tender GI Narrative: No guarding with palpation. no CVA tenderness Narrative: No suprapubic tenderness. Extremity no calf tenderness and no pedal edema Extremity Narrative: No clubbing and no cyanosis. Skin no jaundice Rashes: no rashes Hair: general thinning and scarring alopecia Neuro oriented x3, moves all extremities, no focal motor deficits and no sensory deficits noted Neuro Narrative: Shuffling gait per PT. I did not ambulate her. No resting tremors. No bradykinesia. No masked facies. No significant rigidity. Having a little trouble with short term memory. Able to follow simple commands with no problem. Talkative and engaged. Psych thought process normal, cooperative, affect normal, denies hallucinations and denies suicidal ideation Appearance: grossly normal, appropriate and well kempt Attitude: calm and engaged Activity / Motor Behavior: appropriate eye contact Mood & Affect: euthymic mood Results Lab / Micro Data 11/13/24 06:37 11/13/24 06:37 Labs: Laboratory Results - last 24 hr 11/13/24 06:37: WBC 7.0, RBC 3.33 L, Hgb 11.1 L, Hct 30.8 L, MCV 92.5, MCH 33.3 H, MCHC 36.0, RDW Std Deviation 44.3 H, RDW Coeff of Marga 13.2, Plt Count 204, MPV 10.1, Sodium 127 L, Potassium 4.7, Chloride 95 L, Carbon Dioxide 22.0, Anion Gap 10, BUN 20 H, Creatinine 0.89, Estim Creat Clear Calc 36.21 L, Est GFR (MDRD) Non-Af 66, BUN/Creatinine Ratio 22.2 H, Glucose 95, Calcium 9.4, Phosphorus 3.9, Magnesium 2.0, Total Bilirubin 0.71, AST 57 H, ALT 82 H, Alkaline Phosphatase 81, Total Protein 6.1, Albumin 3.9, Globulin 2.2, Albumin/Globulin Ratio 1.8 Assessment & Plan Assessment/Plan (1) Physical debility: (2) Generalized muscle weakness: (3) Seizure disorder: (4) Intracranial epidural hematoma: (5) Acute cystitis: QUALIFIERS: Hematuria presence: without hematuria Qualified Code(s): N30.00 - Acute cystitis without hematuria (6) Paroxysmal atrial fibrillation: (7) Anticoagulant long-term use: (8) Bradycardia, sinus: PLAN: On amiodarone. Coreg was DC'd at [facility] for bradycardia. TSH is normal. 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 (11) HTN (hypertension): QUALIFIERS: Hypertension type: primary hypertension Qualified Code(s): I10 - Essential (primary) hypertension PLAN: Continue lisinopril for now. Dose recently increased to 10 mg from 2.5 mg. Hyponatremia got worse......may need to DC and use another agent to control BP.......Norvasc, procardia or Hydralazine since they do not cause bradycardia. (12) Carotid artery bruit: QUALIFIERS: Laterality: bilateral Qualified Code(s): R09.89 - Other specified symptoms and signs involving the circulatory and respiratory systems PLAN: due to carotid stenosis or to radiation of MM? MRA of the neck at [facility] showed no significant stenosis in the carotids or posterior neck. (13) Mild aortic stenosis: PLAN: Rheumatic (14) Grade II diastolic dysfunction: PLAN: With preserved EF. (15) Chronic anemia: PLAN: Normocytic (16) Hypo-osmolality and hyponatremia: PLAN: Suspect possible SIADH........ serum osmolality, urine osmolality and urine sodium ordered. Serum osmolality is low at 271 and the other tests are still pending. (17) Presbycusis: PLAN: Plan PLAN PT for gait stability OT for ADL's ST for evaluation Analgesics as needed Bowel protocol Fall precautions Assess for Anxiety/Depression GI prophylaxis -not necessary at this time. She denies nausea/vomiting/epigastric pain/heartburn. DVT prophylaxis with SCDs and TORSTEN bowen Follow up with PCP, neurology, cardiology following DC from [facility] AM lab including CMP, CBC, Mag and Phos Serum osmolality, urine osmolality and urine sodium Check a TSH No diuretics Request results of UA and/or urine culture from [facility]......none of the documentation we received tells me why she is on Cefdinir? Lisinopril can cause hyponatremia and the dose was increased to 10 mg while at [facility]. Last saw cardiology in January 2024. Last echocardiogram at [facility] was in 2021. It showed an ejection fraction of 60% with stage I diastolic dysfunction, mild left atrial enlargement, mild mitral regurgitation and a PA systolic estimated at 36. She had an echocardiogram at [facility] when she had her craniotomy and the EF was 65 to 70%. The atria were of normal size. There was no [id number] shunt. She had mild to moderate mitral stenosis with no regurgitation with an estimated right ventricular systolic pressure of 48 consistent with moderate pulmonary hypertension. ECHO this admission to [facility] showed a normal left ventricular ejection fraction of 55 to 60% with no wall motion abnormalities. There was grade 2 diastolic dysfunction. There was normal right ventricular size with normal systolic function. There were mildly calcified aortic valve leaflets with mild aortic stenosis as well as mild to moderate central aortic regurgitation. The right ventricular systolic pressure was estimated at 25. There was trace of mitral regurgitation but no mitral stenosis. Will need to discuss with Alexsandra what patient was able to do at home by herself without assistance. She may just be de-conditioned because Alexsandra helps her with everything. Charges/Coding Visit Charges Inpatient E&M: 44861 Init Hosp L2
--- NOTE | 2024-11-13 12:00 | PCM.RU.PYE ---
Admission Information Primary Diagnosis:: Debility/generalized weakness/recent diagnosis of seizures Status Changes from Prescreening?: No changes Identified Actual Problem List:: UTI (She is on Cefdinir......no documentation from previous hospital for why she is on and antibiotic. ), Falls, Mobility Impaired, Self Care Deficit, BP, Hypertension and Alteration-Leisure Activ. Risk of Complications DVT: TORSTEN Hose and Sequential Compression Device Bleeding: Monitor Lab Values, Nursing to Teach Precautions for anti-coagulation therapy., Wound, if applicable, to be assessed every shift. and Stroke patients assessed for lethargy or change in status. Infection: Clinical Staff to Monitor for S/S of infection: and S/S of infection include fever, redness, warmth, etc. Urinary Tract Infection: Monitor for frequency, burning, discomfort, or incontinence. and Nursing will obtain urine sample for urinalysis and C&S when ordered. Aspiration: Clinical staff will monitor for coughing, drooling, congestion., Speech will evaluate swallowing and dsyphasia. and Nursing will monitor patient swallowing during meals. Falls: Patient will be evaluated for Fall Precautions and Patient will be placed on Fall Precautions as indicated per protocol. Skin Breakdown: Nursing will assess skin daily using assessment tool. and Nursing will place on Skin Breakdown Precautions as indicated. Pain: Clinical staff will assess patient's pain level per protocol., Medications will be given, if needed, and the pain level reassessed. and Other methods: Massage, distraction, decrease stimulus, etc. used PRN. Plan of Care Patient requires physician specializing in physical medicine and rehab oversight to provide close medical supervision of rehab issues including: Pain Management, Sleep Problems, Bowel and Bladder, Medical and co-morbidity Management, DVT prophylaxis, Rehabilitation Leadership and Coordination of treatment team Patient needs Physical Therapy: For a minimum of 1 hour and At least 5 out of 7 days Patient needs Physical Therapy to improve:: Mobility, Strengthening, Transfers, Stretching, ROM, Endurance, Stairs, Gait and Balance Patient needs Occupational Therapy: For a minimum of 1 hour and At least 5 out of 7 days Patient needs Occupational Therapy to improve ADL's incl.: Eating, Grooming, Bathing, Dressing, Toileting, Toilet transfers, Community Reintegration, Higher functioning activities, Household tasks, Adaptive Equipment, Splinting and Other activities as determined Patient requires speech therapy: For a minimum of 1 hour and At least 5 out of 7 days Patient requires speech therapy for: Swallowing, Cognition, Language Skills and Compensatory Strategies Patient requires 24/ Rehabilitation Nursing for: Pain Issues, Identifying and preventing risk factors, Monitoring and reporting current medical conditions, Assisting with ambulation, transfer, and all ADL's, Teaching patients about disease process and medications, Family teaching, Providing safe environment, Bowel and Bladder Issues, Skin integrity and Medication Management Patient needs Market Intelligence Consultant/ Case Management for: Discharge Planning, Arranging Home Equipment or Services and Family Interventions Patient needs Dietary and Nutrition Services for: Adequate Nutrition, Nutritional Supplements and Nutritional Education Goals Goals Patient will remain: free from falls Patient will perform eating at: MOD I level of assist. Patient will perform bed mobility at: MOD I level of assist. Patient will complete transfers from bed to chair at: MOD I level of assist. Patient will ambulate: - (165 feet with a rollator walker at standby assist on various surfaces) Patient will complete upper body dressing at: - (Supervision) Patient will complete lower body dressing at: - (Supervision with adaptive equipment as needed for increased independence with self-care) Patient will complete toilet transfer at: - (Supervision) Patient will complete toileting at: - (Supervision) Patient will perform bathing at: - (She will complete upper body bathing at supervision and lower body bathing at supervision with adaptive equipment as needed.) Patient will perform Tub/Shower transfer at: - (Supervision) Patient will complete grooming at: - (Supervision while standing at the sink) Patient will complete home management skills at: - (Supervision) Patient will achieve: - (4 steps with 2 handrails at standby assist to allow access to her home) Patient will have pain level of: of 3 or less Patient's skin will: remain intact Discharge Planning Pt Prognosis for Sig. Practical Improv. w/in Reasonable Time: Good Estimated Length of stay (days): 28 Anticipated D/C Destination: Home w/ family or friends Was Preadmission Assessment Accurate?: Yes
[2024-11-13 13:43] LABS: Osmolality, Serum 271 mOsm/KG (280-301)
--- NOTE | 2024-11-13 15:40 | CHAPLAIN ---
Type of Pastoral Visit _x__ Initial Visit ___ Follow-up Visit ___ On-call Visit ___ General Patient Visit ___ Spiritual Assessment ___ Family Conference ___ Bereavement ___ Rapid Response ___ Code Blue ___ Other (describe below) Pastoral Care Referral From _x__ Patient ___ Family ___ Nurse ___ Physician ___ Human Resources Professional ___ Sewage Plant Attendant ___ Other (describe below) Sacrament/Intervention _x__ Active listening ___ Anointing ___ Amish ___ Bereavement ___ Communion ___ Analy exploration ___ _x__ Life review _x__ Prayer ___ Reconciliation ___ Sacrament of Sick ___ Supportive presence ___ Wedding ___ Other (describe below) Pastoral Comments patient is talkative about her life, being a , changing churches so it is easy accessible to her, and how she is feeling about therapy so far; pt has support and welcomes prayers
[2024-11-13 17:12] LABS: Urine Sodium 89 mmol/L (Not Establ.)
[2024-11-13 18:00] VITALS: BP 142/55; PULSE 60; RESP 17; TEMP 37.1; O2SAT 98
[2024-11-13 19:09] LABS: Osmolality, Urine 591 mOsm/KG
[2024-11-13] MEDS: Atorvastatin Calcium 10 MG Tablet PO (22:02)
[2024-11-13] MEDS: Magnesium Chloride 64 MG Delay Rel.Tablet PO (22:02)
[2024-11-13] MEDS: Nystatin Powder 15gm Bottle 1 APPLIC TOPICAL (22:02)
[2024-11-14 05:44] VITALS: BP 152/42; PULSE 56; RESP 16; TEMP 37.1; O2SAT 96
[2024-11-14] MEDS: Cyanocobalamin 500 MCG Tablet 1000 MCG PO (08:24)
[2024-11-14] MEDS: Nystatin Powder 15gm Bottle 1 APPLIC TOPICAL ×2 (08:25→21:26)
[2024-11-14] MEDS: Multivitamins,Therapeutic Tablet 1 TABLET PO (08:25)
[2024-11-14] MEDS: levETIRAcetam 1,000 MG Tablet 1000 MG PO ×2 (08:25→21:26)
[2024-11-14] MEDS: Zinc Sulfate 50 mg zinc (220 mg) ORAL capsule PO (08:25)
[2024-11-14] MEDS: Amiodarone 200 MG Tablet PO (08:25)
[2024-11-14] MEDS: Lisinopril 10 MG Tablet PO (08:25)
[2024-11-14] MEDS: Cholecalciferol (Vit D3) 125 MCG CAPSULE (5,000 UNITS) PO (08:25)
[2024-11-14] MEDS: Cefdinir 300 MG Capsule PO ×2 (08:25→21:26)
[2024-11-14] MEDS: Sodium Chloride 1 GM Tablet PO ×2 (13:09→21:27)
[2024-11-14 17:39] VITALS: BP 175/51; PULSE 66; RESP 16; TEMP 36.8; O2SAT 98
[2024-11-14 21:25] VITALS: BP 170/50
[2024-11-14] MEDS: Atorvastatin Calcium 10 MG Tablet PO (21:26)
[2024-11-14] MEDS: Magnesium Chloride 64 MG Delay Rel.Tablet PO (21:27)
[2024-11-15 03:00] VITALS: BP 155/75
[2024-11-15] MEDS: Nystatin Powder 15gm Bottle 1 APPLIC TOPICAL ×2 (05:40→22:24)
[2024-11-15 06:00] VITALS: BP 175/80; PULSE 66; RESP 16; TEMP 36.6; O2SAT 96
[2024-11-15 06:16] LABS: Anion Gap 10 (5-15); BUN 17 mg/dL (4-19); BUN/Creat Ratio 18.3 RATIO (10-20); Calcium,Total 9.1 mg/dL (7.6-11.0); Carbon Dioxide 22.8 mmol/L (21.0-32.0); Chloride 92 mmol/L (98-108); Creatinine, Serum 0.91 mg/dL (0.70-1.20); EST Glomerular Filtration Rate 64 (>60); Estimated Creatinine Clearance 35.42 ml/min (50-250); Glucose 97 mg/dL (70-99); Potassium 4.7 mmol/L (3.3-5.1); Sodium Level 124 mmol/L (133-145)
[2024-11-15] MEDS: Cholecalciferol (Vit D3) 125 MCG CAPSULE (5,000 UNITS) PO (08:07)
[2024-11-15] MEDS: Amiodarone 200 MG Tablet PO (08:07)
[2024-11-15] MEDS: levETIRAcetam 1,000 MG Tablet 1000 MG PO ×2 (08:07→22:14)
[2024-11-15] MEDS: Zinc Sulfate 50 mg zinc (220 mg) ORAL capsule PO (08:07)
[2024-11-15] MEDS: Multivitamins,Therapeutic Tablet 1 TABLET PO (08:07)
[2024-11-15] MEDS: Cyanocobalamin 500 MCG Tablet 1000 MCG PO (08:07)
[2024-11-15] MEDS: Cefdinir 300 MG Capsule PO ×2 (08:07→22:14)
[2024-11-15] MEDS: Sodium Chloride 1 GM Tablet PO ×3 (08:07→22:14)
[2024-11-15] MEDS: Lisinopril 10 MG Tablet PO (08:07)
--- NOTE | 2024-11-15 11:24 | PCM.PROGNOTE ---
Subjective Subjective Sarah was seen on team rounds today. Her daughter Maribell was present in the room for rounds. All questions were answered to their satisfaction. Afebrile VSS - BP's are not adequately controlled.....even with increasing the dose of the Lisinopril to 10 mg daily while at [facility]. Heart rate has ranged from 56-89 over the past 24 hours. She was taken off her beta-bright while at [facility] due to bradycardia. Maintaining appropriate oxygen saturation on RA Oral intake - FOOD good FLUIDS good but she has to be reminded to drink. Discussed with nursing - no problems that need addressed Reviewed the THERAPY notes Medication list reviewed. sodium is 124 today, down from 127 at admission. she is mildly hypotonic (271) and the urine sodium is > 40 (89) with a urine osmo > 100 (591) TSH is normal Objective Data Objective Data Vital Signs: Vital Signs Temp Pulse Resp BP Pulse Ox O2 Del Method 98 F 66 16 175/80 H 96 Room Air 11/15/24 06:00 11/15/24 06:00 11/15/24 06:00 11/15/24 06:00 11/15/24 06:00 11/15/24 06:00 Oxygen Delivery Method Room Air Weight: 105 lb 6.095 oz Body Mass Index (BMI) 24.5 Intake & Output: Intake and Output for Last 24 Hours 11/13/24 11/14/24 11/15/24 23:59 23:59 23:59 Intake Total 834 / 834 1120 / 1120 560 / 560 Output Total 850 / 1050 1270 / 1270 450 / 450 Balance -16 / -216 -150 / -150 110 / 110 Lab / Micro Data 11/13/24 06:37 11/15/24 05:33 Labs: Laboratory Results - last 24 hr 11/15/24 05:33: Sodium 124 L, Potassium 4.7, Chloride 92 L, Carbon Dioxide 22.8, Anion Gap 10, BUN 17, Creatinine 0.91, Estim Creat Clear Calc 35.42 L, Est GFR (MDRD) Non-Af 64, BUN/Creatinine Ratio 18.3, Glucose 97, Calcium 9.1 Physical Exam Const alert, oriented x3 and no apparent distress Constitutional Narrative: Sitting in bed when I examined her. General Appearance: cooperative and well kempt HEENT General Ear: other Other Details: Hard of hearing and need to repeat things when speaking with her. Resp normal respiratory effort, normal air movement and clear to auscultation bilaterally Effort and Inspection: able to speak in complete sentences Cardio regular rate, regular rhythm, no rub and no gallops Cardio Narrative: No ectopy. She has a 3/6 PATY at the second RICS with radiation to the LVOT, LLSB, apex, carotids and into the left axilla. No diastolic MM appreciated. GI normal to inspection, nondistended, normoactive bowel sounds, soft to palpation and non-tender GI Narrative: No guarding with palpation. Extremity no calf tenderness and no pedal edema Extremity Narrative: No clubbing and no cyanosis. 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 Continue therapy 2. Continue 1000 cc daily fluid restriction 3. Increase salt tablets to 1 g p.o. 3 times daily 4. Hold lisinopril and start hydralazine 25 mg 3 times daily 5. Lasix 20 mg p.o. today 6. Recheck BMP in the a.m. and a cortisol. TSH is normal. 7. If no improvement in the sodium tomorrow will need to consult Nephrology. 8. Hyponatremia is a SE of Keppra Charges/Coding Visit Charges Inpatient E&M: 00586 Subs Hosp L2
[2024-11-15 13:27] VITALS: PULSE 89
[2024-11-15] MEDS: hydrALAZINE 25 MG Tablet PO ×2 (13:27→22:20)
[2024-11-15] MEDS: Furosemide 20 MG Tablet PO (13:28)
--- NOTE | 2024-11-15 13:40 | CASEMGMT ---
Addendum entered by Vanessa Zhao 11/15/24 17:21: SW received Medicare days - approval of 16 days with DC 11/28. SW phoned dtr and left VM to notify. Original Note: Social Work IDT met with patient and dtr for Team meeting. Discussed patient's progress in PT/OT/ST/SN. Educated to Medicare benefit and will notify pt/dtr when aware of days approved. SW clarified DC plans. Pt's dtr has been living with pt since this happened and plans to continue until pt no longer needs assistance. Dtr does have her own home and has been working remotely from pt's home. Pt will need to be independent with short-distance ambulation, transfers and toileting. Dtr can assist with other areas. SW will continue to follow for DC planning. Will ReTeam weekly. Vanessa Zhao MSW PLANT SPECIALIST
[2024-11-15 18:00] VITALS: BP 137/38; PULSE 57; RESP 16; TEMP 37; O2SAT 98
[2024-11-15 22:00] VITALS: BP 144/49; PULSE 57; RESP 16; O2SAT 98
[2024-11-15] MEDS: Atorvastatin Calcium 10 MG Tablet PO (22:14)
[2024-11-15] MEDS: Magnesium Chloride 64 MG Delay Rel.Tablet PO (22:14)
[2024-11-15 22:20] VITALS: BP 144/49; PULSE 57
[2024-11-16] VITALS (7 sets, daily range): BP systolic 114–143; BP diastolic 37–75; PULSE 54–65; RESP 17; TEMP 36.7–37.1; O2SAT 99–100; BMI 24.3
[2024-11-16] MEDS: hydrALAZINE 25 MG Tablet PO ×3 (04:52→21:21)
[2024-11-16] MEDS: Sodium Chloride 1 GM Tablet PO ×3 (04:52→21:22)
[2024-11-16] MEDS: Nystatin Powder 15gm Bottle 1 APPLIC TOPICAL ×2 (04:54→21:22)
[2024-11-16 05:53] LABS: Anion Gap 11 (5-15); BUN 17 mg/dL (4-19); BUN/Creat Ratio 18.5 RATIO (10-20); Calcium,Total 9.3 mg/dL (7.6-11.0); Carbon Dioxide 21.4 mmol/L (21.0-32.0); Chloride 95 mmol/L (98-108); Creatinine, Serum 0.91 mg/dL (0.70-1.20); EST Glomerular Filtration Rate 64 (>60); Estimated Creatinine Clearance 35.42 ml/min (50-250); Glucose 103 mg/dL (70-99); Potassium 4.5 mmol/L (3.3-5.1); Sodium Level 126 mmol/L (133-145)
[2024-11-16] MEDS: Zinc Sulfate 50 mg zinc (220 mg) ORAL capsule PO (08:22)
[2024-11-16] MEDS: Cyanocobalamin 500 MCG Tablet 1000 MCG PO (08:22)
[2024-11-16] MEDS: Cholecalciferol (Vit D3) 125 MCG CAPSULE (5,000 UNITS) PO (08:22)
[2024-11-16] MEDS: Amiodarone 200 MG Tablet PO (08:22)
[2024-11-16] MEDS: levETIRAcetam 1,000 MG Tablet 1000 MG PO ×2 (08:22→21:22)
[2024-11-16] MEDS: Multivitamins,Therapeutic Tablet 1 TABLET PO (08:22)
--- NOTE | 2024-11-16 08:28 | PCM.PROGNOTE ---
Subjective Subjective Afebrile VSS -she was transitioned from lisinopril to hydralazine for blood pressure control yesterday. The blood pressure over the past 24 hours has ranged from 137/38 to 175/80. Blood pressure this a.m. was 143/40. The heart rate is ranged from 54-89. Maintaining appropriate oxygen saturation on RA Oral intake - FOOD good FLUIDS she stayed within the 1000 cc/day fluid restriction yesterday. Discussed with nursing - Pt c/o nausea last night.......she associates this with the salt tabs but, she was nauseated prior to the salt tabs being started and I suspect it is related to low sodium. Despite c/o nausea she ate 75-100% of breakfast this AM. She is requesting a stool softener. Reviewed the THERAPY notes Medication list reviewed. All lab drawn this morning was personally reviewed. Sodium is up to 126 today and chloride is up to 95. Potassium is stable at 4.5. The BUN is 17 and the creatinine is 0.1 which is unchanged from yesterday. No nausea when she took her medications with a cracker today. Denies cephalgia and lightheadedness. Oriented X 3 today. Good appetite today. Denies SOB, CP and calf pain. Objective Data Objective Data Vital Signs: Vital Signs Temp Pulse Resp BP Pulse Ox O2 Del Method 98.0 F 54 L 17 143/40 H 100 Room Air 11/16/24 04:58 11/16/24 04:58 11/16/24 04:58 11/16/24 04:58 11/16/24 04:58 11/16/24 04:58 Oxygen Delivery Method Room Air Weight: 104 lb 11.513 oz Body Mass Index (BMI) 24.3 Intake & Output: Intake and Output for Last 24 Hours 11/14/24 11/15/24 11/16/24 23:59 23:59 23:59 Intake Total 1120 / 1120 760 / 760 380 / 380 Output Total 1270 / 1270 750 / 750 325 / 325 Balance -150 / -150 55 / 55 Lab / Micro Data 11/13/24 06:37 11/16/24 04:36 Labs: Laboratory Results - last 24 hr 11/16/24 04:36: Sodium 126 L, Potassium 4.5, Chloride 95 L, Carbon Dioxide 21.4, Anion Gap 11, BUN 17, Creatinine 0.91, Estim Creat Clear Calc 35.42 L, Est GFR (MDRD) Non-Af 64, BUN/Creatinine Ratio 18.5, Glucose 103 H, Calcium 9.3, Cortisol AM Sample 11.40 Physical Exam Const alert, oriented x3 and no apparent distress Resp normal respiratory effort, normal air movement and clear to auscultation bilaterally Effort and Inspection: able to speak in complete sentences Cardio regular rate, regular rhythm, no rub and no gallops Cardio Narrative: No ectopy. She has a 3/6 PATY at the second RICS with radiation to the LVOT, LLSB, apex, carotids and into the left axilla. No diastolic MM appreciated. GI normal to inspection, nondistended, normoactive bowel sounds, soft to palpation and non-tender GI Narrative: No guarding with palpation. 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 Continue therapy 2. Lasix 40 mg p.o. today 3. Continue 1000 cc/day fluid restriction. 4. Discontinue lisinopril and continue hydralazine for blood pressure control. 5. Recheck a BMP on Tuesday. 6. Senna added to the current drug regimen. 7. Consider starting something for anxeity after the sodium is 130 or >. she is calmer today and may not need anything after she is here for a few more days. Charges/Coding Visit Charges Inpatient E&M: 05503 Subs Hosp L1
[2024-11-16] MEDS: Senna/Docusate Sodium 1 Tablet 2 TABLET PO ×2 (10:23→21:22)
[2024-11-16] MEDS: Furosemide 40 MG Tablet PO (10:23)
[2024-11-16] MEDS: Atorvastatin Calcium 10 MG Tablet PO (21:21)
[2024-11-16] MEDS: Magnesium Chloride 64 MG Delay Rel.Tablet PO (21:23)
[2024-11-17] VITALS (8 sets, daily range): BP systolic 119–141; BP diastolic 42–83; PULSE 62–87; RESP 14–16; TEMP 36.3–36.9; O2SAT 95–99
[2024-11-17] MEDS: hydrALAZINE 25 MG Tablet PO ×3 (05:34→20:55)
[2024-11-17] MEDS: Sodium Chloride 1 GM Tablet PO ×3 (05:34→20:58)
[2024-11-17] MEDS: Nystatin Powder 15gm Bottle 1 APPLIC TOPICAL ×2 (05:37→20:59)
[2024-11-17] MEDS: levETIRAcetam 1,000 MG Tablet 1000 MG PO ×2 (08:08→20:56)
[2024-11-17] MEDS: Zinc Sulfate 50 mg zinc (220 mg) ORAL capsule PO (08:08)
[2024-11-17] MEDS: Cyanocobalamin 500 MCG Tablet 1000 MCG PO (08:08)
[2024-11-17] MEDS: Cholecalciferol (Vit D3) 125 MCG CAPSULE (5,000 UNITS) PO (08:08)
[2024-11-17] MEDS: Amiodarone 200 MG Tablet PO (08:08)
[2024-11-17] MEDS: Senna/Docusate Sodium 1 Tablet 2 TABLET PO ×2 (08:08→20:57)
[2024-11-17] MEDS: Multivitamins,Therapeutic Tablet 1 TABLET PO (08:09)
[2024-11-17] MEDS: Atorvastatin Calcium 10 MG Tablet PO (20:56)
[2024-11-17] MEDS: Magnesium Chloride 64 MG Delay Rel.Tablet PO (20:57)
[2024-11-18] VITALS (7 sets, daily range): BP systolic 133; BP diastolic 35–48; PULSE 66–70; RESP 16; TEMP 36.6–36.8; O2SAT 98
[2024-11-18] MEDS: Sodium Chloride 1 GM Tablet PO ×3 (05:50→20:04)
[2024-11-18] MEDS: hydrALAZINE 25 MG Tablet PO ×3 (05:50→20:08)
[2024-11-18] MEDS: Nystatin Powder 15gm Bottle 1 APPLIC TOPICAL ×2 (05:51→20:14)
[2024-11-18 07:30] LABS: Anion Gap 10 (5-15); BUN 32 mg/dL (4-19); BUN/Creat Ratio 33.7 RATIO (10-20); Calcium,Total 8.9 mg/dL (7.6-11.0); Carbon Dioxide 20.1 mmol/L (21.0-32.0); Chloride 104 mmol/L (98-108); Creatinine, Serum 0.94 mg/dL (0.70-1.20); EST Glomerular Filtration Rate 61 (>60); Estimated Creatinine Clearance 34.29 ml/min (50-250); Glucose 101 mg/dL (70-99); Potassium 4.3 mmol/L (3.3-5.1); Sodium Level 134 mmol/L (133-145)
[2024-11-18] MEDS: levETIRAcetam 1,000 MG Tablet 1000 MG PO ×2 (09:52→20:03)
[2024-11-18] MEDS: Cyanocobalamin 500 MCG Tablet 1000 MCG PO (09:53)
[2024-11-18] MEDS: Multivitamins,Therapeutic Tablet 1 TABLET PO (09:53)
[2024-11-18] MEDS: Zinc Sulfate 50 mg zinc (220 mg) ORAL capsule PO (09:53)
[2024-11-18] MEDS: Cholecalciferol (Vit D3) 125 MCG CAPSULE (5,000 UNITS) PO (09:53)
[2024-11-18] MEDS: Amiodarone 200 MG Tablet PO (09:53)
[2024-11-18] MEDS: Senna/Docusate Sodium 1 Tablet 2 TABLET PO (20:03)
[2024-11-18] MEDS: Atorvastatin Calcium 10 MG Tablet PO (20:03)
[2024-11-18] MEDS: Magnesium Chloride 64 MG Delay Rel.Tablet PO (20:03)
[2024-11-19 04:37] VITALS: BP 151/44; PULSE 67; RESP 16; TEMP 37.1; O2SAT 97
[2024-11-19 04:40] VITALS: BP 151/44; PULSE 67
[2024-11-19] MEDS: Sodium Chloride 1 GM Tablet PO ×2 (04:40→17:14)
[2024-11-19] MEDS: hydrALAZINE 25 MG Tablet PO ×3 (04:40→22:48)
[2024-11-19] MEDS: Nystatin Powder 15gm Bottle 1 APPLIC TOPICAL ×2 (06:50→22:55)
--- NOTE | 2024-11-19 08:26 | PN_ITS ---
Subjective Subjective Afebrile VSS -blood pressure over the weekend has ranged from 125/45 to 151/44 (this AM).......most BP's are less than 140/80. Heart rate has ranged from 65-87. Lisinopril was discontinued last week due to the low sodium and she is now taking Hydralazine. Maintaining appropriate oxygen saturation on RA Oral intake - FOOD good FLUIDS poor......not even coming close to the fluid restriction of 1,000 daily. Discussed with nursing - no problems that need addressed. Needs a lot of encouragement to get up and move from nursing........ with complaints of not being able to transfer but she is able to do this and nursing encourages her to do it. Reviewed the THERAPY notes Medication list reviewed. Most recent sodium is up to 134 with a K of 4.3. BUN is 32 with stable creat at 0.94. AM cortisol on Sat was WNL at 11.4. Sarah tends to perseverate on things. She is complaining of nausea after med Pass however she is eating 75 to 100% of over 80% of her meals. Keeps going back to her last admission to rehab when she had nausea and blamed it on the pills at that time as well. Seems to do better if she is given crackers with her medications. Continually perseverates on the salt tablets. Poor short-term memory, I have to repeat myself daily about the same things. Arpit denies lightheadedness, headache, chest pain, abdominal pain, dysuria and calf tenderness. Hemoglobin is 10.7 today which is stable. Sodium is now stable at 134 and the potassium is stable at 4.3. The BUN is 27 with a creatinine of 0.84. Random blood sugar today is 138, obtained after breakfast. Objective Data Objective Data Vital Signs: Vital Signs Temp Pulse Resp BP Pulse Ox O2 Del Method 98.7 F 67 16 151/44 H 97 Room Air 11/19/24 04:37 11/19/24 04:40 11/19/24 04:37 11/19/24 04:40 11/19/24 04:37 11/19/24 04:37 Oxygen Delivery Method Room Air Weight: 104 lb 11.513 oz Body Mass Index (BMI) 24.3 Intake & Output: Intake and Output for Last 24 Hours 11/17/24 11/18/24 11/19/24 23:59 23:59 23:59 Intake Total 400 / 400 210 / 410 300 / 300 Output Total 500 / 500 450 / 450 175 / 175 Balance -100 / -100 -240 / -40 125 / 125 Lab / Micro Data 11/19/24 08:50 11/19/24 08:50 Physical Exam Const alert, oriented x3 and no apparent distress HEENT moist oral mucous membranes Resp normal respiratory effort, normal air movement and clear to auscultation bilaterally Effort and Inspection: able to speak in complete sentences Cardio regular rate, regular rhythm, no rub and no gallops Cardio Narrative: No ectopy. She has a 3/6 PATY at the second RICS with radiation to the LVOT, LLSB, apex, carotids and into the left axilla. No diastolic MM appreciated. GI normal to inspection, nondistended, normoactive bowel sounds, soft to palpation and non-tender GI Narrative: No guarding with palpation. Extremity no calf tenderness and no pedal edema Skin General Skin Exam: no breakdown Rashes: no rashes Neuro Neuro Narrative: Poor short-term memory. Asks me the same questions every day. Tends to perseverate on things. No seizure activity observed since admission. She is anxious and has intention tremors and tremors at rest. 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 Continue therapy 2. BMP and HH today. Reviewed. 3. Encouraged her to increase fluid intake to 1,000 daily. Increase fluid restriction to 1200 cc daily 4. Decrease sodium tablets to twice daily 5. Continue hydralazine for blood pressure control. I suspect the lisinopril is what led to the worsening of the hyponatremia. 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 TSH and cortisol are normal. Osmolalities and urine sodium are consistent with SIADH. 6. Needs a lot of encouragement to get up and move. 7. Start Buspar 5 mg BID for anxiety. 8. HGB is stable on apixaban. 9. Recheck a BMP . Charges/Coding Visit Charges Inpatient E&M: 53498 Subs Hosp L1
[2024-11-19] MEDS: Amiodarone 200 MG Tablet PO (08:28)
[2024-11-19] MEDS: Cholecalciferol (Vit D3) 125 MCG CAPSULE (5,000 UNITS) PO (08:28)
[2024-11-19] MEDS: Cyanocobalamin 500 MCG Tablet 1000 MCG PO (08:28)
[2024-11-19] MEDS: Zinc Sulfate 50 mg zinc (220 mg) ORAL capsule PO (08:28)
[2024-11-19] MEDS: levETIRAcetam 1,000 MG Tablet 1000 MG PO ×2 (08:28→22:55)
[2024-11-19] MEDS: Multivitamins,Therapeutic Tablet 1 TABLET PO (08:28)
[2024-11-19] MEDS: Senna/Docusate Sodium 1 Tablet 2 TABLET PO ×2 (08:29→22:54)
[2024-11-19 09:04] LABS: Hematocrit 30.9 % (37-47); Hemoglobin 10.7 g/dL (12.0-15.0)
[2024-11-19 09:50] LABS: Anion Gap 11 (5-15); BUN 27 mg/dL (4-19); BUN/Creat Ratio 32.5 RATIO (10-20); Calcium,Total 9.2 mg/dL (7.6-11.0); Carbon Dioxide 20.4 mmol/L (21.0-32.0); Chloride 103 mmol/L (98-108); Creatinine, Serum 0.84 mg/dL (0.70-1.20); EST Glomerular Filtration Rate 70 (>60); Estimated Creatinine Clearance 37.73 ml/min (50-250); Glucose 138 mg/dL (70-99); Potassium 4.3 mmol/L (3.3-5.1); Sodium Level 134 mmol/L (133-145)
[2024-11-19 14:20] VITALS: BP 141/36; PULSE 64
[2024-11-19 18:00] VITALS: BP 112/37; PULSE 65; RESP 17; TEMP 36.9; O2SAT 98
[2024-11-19 22:45] VITALS: BP 149/29; PULSE 59; RESP 17
[2024-11-19 22:48] VITALS: BP 149/29; PULSE 59
[2024-11-19] MEDS: Atorvastatin Calcium 10 MG Tablet PO (22:53)
[2024-11-19] MEDS: Magnesium Chloride 64 MG Delay Rel.Tablet PO (22:54)
[2024-11-20] VITALS (7 sets, daily range): BP systolic 129–175; BP diastolic 35–58; PULSE 62–74; RESP 16–17; TEMP 36.6–36.9; O2SAT 98
[2024-11-20] MEDS: Acetaminophen 325 MG Tablet PO (06:32)
[2024-11-20] MEDS: hydrALAZINE 25 MG Tablet PO (06:32)
[2024-11-20] MEDS: Nystatin Powder 15gm Bottle 1 APPLIC TOPICAL (06:33)
[2024-11-20] MEDS: Sodium Chloride 1 GM Tablet PO ×2 (08:23→16:54)
[2024-11-20] MEDS: Amiodarone 200 MG Tablet PO (08:24)
[2024-11-20] MEDS: Cholecalciferol (Vit D3) 125 MCG CAPSULE (5,000 UNITS) PO (08:24)
[2024-11-20] MEDS: Multivitamins,Therapeutic Tablet 1 TABLET PO (08:24)
[2024-11-20] MEDS: Senna/Docusate Sodium 1 Tablet 2 TABLET PO ×2 (08:24→21:42)
[2024-11-20] MEDS: Zinc Sulfate 50 mg zinc (220 mg) ORAL capsule PO (08:24)
[2024-11-20] MEDS: levETIRAcetam 1,000 MG Tablet 1000 MG PO ×2 (08:24→21:43)
[2024-11-20] MEDS: Cyanocobalamin 500 MCG Tablet 1000 MCG PO (08:24)
--- NOTE | 2024-11-20 11:40 | PN_ITS ---
Subjective Subjective Afebrile Fluid intake yesterday was 1180 with much encouragement. Having regular bowel movements Eating 75 to 100% of most of her meals. Blood pressure over the past 24 hours has ranged from 149/29 to 161/35. Heart rate has ranged from 59-62. Has not c/o nausea to nursing. She was restless on and of through the night last night. she is anxious during the day also........this is her baseline per her dtr. Tends to perseverate also. she has no complaints today. She denies lightheadedness, cephalgia, chest pain, shortness of breath, cough, nausea/vomiting/abdominal pain, dysuria and calf tenderness today. Objective Data Objective Data Vital Signs: Vital Signs Temp Pulse Resp BP Pulse Ox O2 Del Method 98.5 F 62 17 161/35 H 98 Room Air 11/20/24 06:00 11/20/24 06:32 11/20/24 06:00 11/20/24 06:32 11/20/24 06:00 11/20/24 06:00 Oxygen Delivery Method Room Air Weight: 104 lb 11.513 oz Body Mass Index (BMI) 24.3 Intake & Output: Intake and Output for Last 24 Hours 11/18/24 11/19/24 11/20/24 23:59 23:59 23:59 Intake Total 210 / 410 1180 / 1180 Output Total 450 / 450 825 / 825 Balance -240 / -40 355 / 355 Lab / Micro Data 11/19/24 08:50 11/19/24 08:50 Physical Exam Const alert, oriented x3 and no apparent distress HEENT moist oral mucous membranes Resp normal respiratory effort, normal air movement and clear to auscultation bilaterally Effort and Inspection: able to speak in complete sentences Cardio regular rate, regular rhythm, no rub and no gallops Cardio Narrative: No ectopy. She has a 3/6 PATY at the second RICS with radiation to the LVOT, LLSB, apex, carotids and into the left axilla. No diastolic MM appreciated. GI normal to inspection, nondistended, normoactive bowel sounds, soft to palpation and non-tender GI Narrative: No guarding with palpation. Extremity no calf tenderness and no pedal edema Skin General Skin Exam: no breakdown Rashes: no rashes Neuro Neuro Narrative: gets restless and has tremors of the hands and feet when she feels stressed. Does not seem depressed. 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 Continue therapy 2. Start BuSpar 5 mg p.o. twice daily starting tonight. 3. Lab ordered for . 4. Increase hydralazine to 50 mg 3 times daily to better control the systolic blood pressure. 5. Check orthostatics in the AM. Charges/Coding Visit Charges Inpatient E&M: 03552 Subs Hosp L1
[2024-11-20] MEDS: hydrALAZINE 50 MG Tablet PO ×2 (13:53→21:42)
[2024-11-20] MEDS: busPIRone 5 MG Tablet PO (21:42)
[2024-11-20] MEDS: Magnesium Chloride 64 MG Delay Rel.Tablet PO (21:42)
[2024-11-20] MEDS: Atorvastatin Calcium 10 MG Tablet PO (21:43)
[2024-11-21] VITALS (7 sets, daily range): BP systolic 127–153; BP diastolic 34–51; PULSE 67–75; RESP 12–16; TEMP 37–37.1; O2SAT 97–98
[2024-11-21] MEDS: Nystatin Powder 15gm Bottle 1 APPLIC TOPICAL ×2 (05:32→21:31)
[2024-11-21] MEDS: hydrALAZINE 50 MG Tablet PO ×3 (05:32→21:29)
[2024-11-21] MEDS: Sodium Chloride 1 GM Tablet PO ×2 (09:04→17:23)
[2024-11-21] MEDS: Cholecalciferol (Vit D3) 125 MCG CAPSULE (5,000 UNITS) PO (09:04)
[2024-11-21] MEDS: Zinc Sulfate 50 mg zinc (220 mg) ORAL capsule PO (09:04)
[2024-11-21] MEDS: levETIRAcetam 1,000 MG Tablet 1000 MG PO ×2 (09:04→21:29)
[2024-11-21] MEDS: Multivitamins,Therapeutic Tablet 1 TABLET PO (09:04)
[2024-11-21] MEDS: Senna/Docusate Sodium 1 Tablet 2 TABLET PO ×2 (09:04→21:30)
[2024-11-21] MEDS: busPIRone 5 MG Tablet PO ×2 (09:04→21:29)
[2024-11-21] MEDS: Amiodarone 200 MG Tablet PO (09:04)
[2024-11-21] MEDS: Cyanocobalamin 500 MCG Tablet 1000 MCG PO (09:04)
[2024-11-21] MEDS: Magnesium Chloride 64 MG Delay Rel.Tablet PO (21:29)
[2024-11-21] MEDS: Atorvastatin Calcium 10 MG Tablet PO (21:30)
[2024-11-22 06:00] VITALS: BP 140/44; PULSE 77; RESP 17; TEMP 36.6; O2SAT 97
[2024-11-22 06:14] VITALS: BP 140/44; PULSE 77
[2024-11-22] MEDS: hydrALAZINE 50 MG Tablet PO ×3 (06:14→21:16)
[2024-11-22] MEDS: Sodium Chloride 1 GM Tablet PO ×2 (06:19→17:09)
[2024-11-22 06:25] LABS: Anion Gap 10 (5-15); BUN 11 mg/dL (4-19); BUN/Creat Ratio 14.8 RATIO (10-20); Calcium,Total 8.8 mg/dL (7.6-11.0); Carbon Dioxide 21.4 mmol/L (21.0-32.0); Chloride 98 mmol/L (98-108); Creatinine, Serum 0.76 mg/dL (0.70-1.20); EST Glomerular Filtration Rate 79 (>60); Estimated Creatinine Clearance 39.62 ml/min (50-250); Glucose 95 mg/dL (70-99); Potassium 4.3 mmol/L (3.3-5.1); Sodium Level 129 mmol/L (133-145)
--- NOTE | 2024-11-22 08:50 | PCM.PROGNOTE ---
Subjective Subjective Sarah was seen on team rounds today. Afebrile VSS - Maintaining appropriate oxygen saturation on RA Oral intake - FOOD good FLUIDS she is on fluid restriction for SIADH.Suspect she is drinking more than what is being recorded because the BUN has decreased significantly since last checked and the Sodium dropped to 129 today? Discussed with nursing - no problems that need addressed Reviewed the THERAPY notes Medication list reviewed. All lab drawn this morning was personally reviewed. Sodium today is 129, down from 134 on 11/19/2024. Potassium is 4.3. BUN is only 11 today which is down from 27 on 11/19/2024. Creatinine is 0.76 which is down from 0.94 on 11/18/2024. I suspect she is getting more fluid that what nursing is giving her. I have no other explanation for why the BUN dropped 16 points in the past 3 days. The only new medication in the past couple days is Buspar and hyponatremia is not a SE of this medication. We did decrease the salt tabs to BID from TID. TSH and cortisol are normal. Keppra can cause hyponatremia but, it would not cause the BUN to drop. She tends to perseverate on things that happened in the past. When she does this she gets very anxious and starts shaking her legs and has tremors in the hands and gets emotional and then c/o nausea. I think the complaints of nausea are due to uncontrolled anxiety and not due to any of the meds she is getting. She is eating well and has a good appetite and is not having emesis. Keeps perseverating on how this happened the last time she was in rehab and it was because we did not space out her pills but, nursing is spacing out the medications......then she blames it on the salt tabs because she says they taste bad. Objective Data Objective Data Vital Signs: Vital Signs Temp Pulse Resp BP Pulse Ox O2 Del Method 97.9 F 77 17 140/44 H 97 Room Air 11/22/24 06:00 11/22/24 06:14 11/22/24 06:00 11/22/24 06:14 11/22/24 06:00 11/22/24 06:00 Oxygen Delivery Method Room Air Weight: 104 lb 11.513 oz Body Mass Index (BMI) 24.3 Intake & Output: Intake and Output for Last 24 Hours 11/20/24 11/21/24 11/22/24 23:59 23:59 23:59 Intake Total 650 / 650 830 / 830 220 / 220 Output Total 300 / 300 550 / 550 200 / 200 Balance 350 / 350 280 / 280 Lab / Micro Data 11/19/24 08:50 11/22/24 05:19 Labs: Laboratory Results - last 24 hr 11/22/24 05:19: Sodium 129 L, Potassium 4.3, Chloride 98, Carbon Dioxide 21.4, Anion Gap 10, BUN 11, Creatinine 0.76, Estim Creat Clear Calc 39.62 L, Est GFR (MDRD) Non-Af 79, BUN/Creatinine Ratio 14.8, Glucose 95, Calcium 8.8 Physical Exam Const alert, oriented x3 and no apparent distress HEENT moist oral mucous membranes Resp normal respiratory effort, normal air movement and clear to auscultation bilaterally Effort and Inspection: able to speak in complete sentences Cardio regular rate, regular rhythm, no rub and no gallops Cardio Narrative: No ectopy. She has a 3/6 PATY at the second RICS with radiation to the LVOT, LLSB, apex, carotids and into the left axilla. No diastolic MM appreciated. GI normal to inspection, nondistended, normoactive bowel sounds, soft to palpation and non-tender GI Narrative: No guarding with palpation. Extremity no calf tenderness and no pedal edema Skin General Skin Exam: no breakdown Rashes: no rashes Psych Psych Narrative: the restlessness, shaking of the legs and tremoring of the hands is somewhat better today. she is sleeping better. Assessment & Plan Assessment/Plan (1) Physical debility: (2) Generalized muscle weakness: (3) Seizure disorder: (4) Intracranial epidural hematoma: (5) Acute cystitis: QUALIFIERS: Hematuria presence: without hematuria Qualified Code(s): N30.00 - Acute cystitis without hematuria (6) Paroxysmal atrial fibrillation: (7) Anticoagulant long-term use: (8) Bradycardia, sinus: (9) halfway current use of amiodarone: (10) High cholesterol: (11) HTN (hypertension): QUALIFIERS: Hypertension type: primary hypertension Qualified Code(s): I10 - Essential (primary) hypertension (12) Carotid artery bruit: QUALIFIERS: Laterality: bilateral Qualified Code(s): R09.89 - Other specified symptoms and signs involving the circulatory and respiratory systems (13) Mild aortic stenosis: (14) Grade II diastolic dysfunction: (15) Chronic anemia: (16) Hypo-osmolality and hyponatremia: (17) Presbycusis: QUALIFIERS: Laterality: bilateral Qualified Code(s): 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 Continue therapy 2. The nurses are spacing out her pills so she does not get too many at one time. 3. Continue the BuSpar 5 mg twice daily because it seems to be helping. 4. Planning on discharging her next Tuesday. She will go home with [facility] home health care. This morning when I spoke to her she did not have her hearing aids in because she says they do not help however her daughter Alexsandra brought them in and put them in her ears and when we had the team meeting no one had to repeat themselves and we did not have to scream at her. I stayed in the room and spoke to her in a normal voice following team meeting and she understood what I was saying much better. I encouraged her to continue wearing the hearing aids because I think that they help. I also told her that hearing aids are not perfect and if there is a lot of noise in the room or people are speaking behind her and not looking at her that her hearing will be worse. I told her that when she is talking with someone she should not have the radio or the television on and that they should always be standing in front of her talking to her and not behind her or talking to her from another room. Her daughter was present when we had this discussion. Charges/Coding Visit Charges Inpatient E&M: 11537 Subs Hosp L2
[2024-11-22] MEDS: Zinc Sulfate 50 mg zinc (220 mg) ORAL capsule PO (09:10)
[2024-11-22] MEDS: Senna/Docusate Sodium 1 Tablet 2 TABLET PO ×2 (09:10→21:15)
[2024-11-22] MEDS: Amiodarone 200 MG Tablet PO (09:11)
[2024-11-22] MEDS: Multivitamins,Therapeutic Tablet 1 TABLET PO (09:11)
[2024-11-22] MEDS: levETIRAcetam 1,000 MG Tablet 1000 MG PO ×2 (09:11→21:16)
[2024-11-22] MEDS: busPIRone 5 MG Tablet PO ×2 (09:11→21:16)
[2024-11-22] MEDS: Cyanocobalamin 500 MCG Tablet 1000 MCG PO (09:11)
[2024-11-22] MEDS: Cholecalciferol (Vit D3) 125 MCG CAPSULE (5,000 UNITS) PO (09:11)
--- NOTE | 2024-11-22 13:31 | CASEMGMT ---
Social Work Team meeting held with pt and pt's dgt present. PT/OT/ST/SN/Physician provided updates. PT is progressing well with therapy. Discharge date has been set for 11/28. Pt and dgt are agreeable that pt will be ready to return home at that time. Pt will be going to her home and dgt will be moving in with pt to provide / supervision and assistance as needed. Pt is agreeable to recommended [facility] PT/OT/[employer]CH[employer]IC. Per pt dgt, pt has used [facility] in the past and would like to use this agency again. Pt has all needed DME. SW to follow for continued dc planning. KEY Dobbs
[2024-11-22 14:26] VITALS: BP 142/33; PULSE 68
[2024-11-22 18:00] VITALS: BP 128/42; PULSE 77; RESP 16; TEMP 37; O2SAT 98
[2024-11-22 21:15] VITALS: BP 135/56; PULSE 66
[2024-11-22] MEDS: Magnesium Chloride 64 MG Delay Rel.Tablet PO (21:15)
[2024-11-22 21:16] VITALS: BP 135/56; PULSE 66
[2024-11-22] MEDS: Atorvastatin Calcium 10 MG Tablet PO (21:16)
[2024-11-22] MEDS: Nystatin Powder 15gm Bottle 1 APPLIC TOPICAL (21:36)
[2024-11-23] MEDS: Nystatin Powder 15gm Bottle 1 APPLIC TOPICAL ×2 (04:58→21:04)
[2024-11-23 05:00] VITALS: BP 169/49; PULSE 69
[2024-11-23] MEDS: hydrALAZINE 50 MG Tablet PO ×3 (05:00→21:02)
[2024-11-23 05:03] VITALS: BMI 24.7
[2024-11-23 05:05] VITALS: BP 169/49; PULSE 69; RESP 16; TEMP 36.7; O2SAT 97
[2024-11-23] MEDS: busPIRone 5 MG Tablet PO ×2 (08:35→21:03)
[2024-11-23] MEDS: Multivitamins,Therapeutic Tablet 1 TABLET PO (08:35)
[2024-11-23] MEDS: Cholecalciferol (Vit D3) 125 MCG CAPSULE (5,000 UNITS) PO (08:35)
[2024-11-23] MEDS: Amiodarone 200 MG Tablet PO (08:35)
[2024-11-23] MEDS: Zinc Sulfate 50 mg zinc (220 mg) ORAL capsule PO (08:35)
[2024-11-23] MEDS: Sodium Chloride 1 GM Tablet PO ×2 (08:35→15:46)
[2024-11-23] MEDS: levETIRAcetam 1,000 MG Tablet 1000 MG PO (08:36)
[2024-11-23] MEDS: Senna/Docusate Sodium 1 Tablet 2 TABLET PO (08:40)
[2024-11-23] MEDS: Cyanocobalamin 500 MCG Tablet 1000 MCG PO (10:41)
[2024-11-23] MEDS: APIXABAN 2.5 MG TABLET (WCH) PO ×2 (10:42→21:03)
--- NOTE | 2024-11-23 14:37 | CASEMGMT ---
Social Work Discharge is planned for 11/28. Pt and dgt agreeable and requesting [facility]. Referral made to [facility] for PT/OT/SN. [facility] is able to accept with SOC on 11/29. Discharge Date: 11/28 Discharge Disposition: home with dgt providing 24 hour supervision and assistance, [facility] PT/OT/SN [facility] [place]
[2024-11-23 15:09] VITALS: BP 167/52; PULSE 63
[2024-11-23 18:00] VITALS: BP 130/38; PULSE 72; RESP 17; TEMP 36.4; O2SAT 98
[2024-11-23 21:02] VITALS: BP 130/71; PULSE 64
[2024-11-23] MEDS: Magnesium Chloride 64 MG Delay Rel.Tablet PO (21:03)
[2024-11-23] MEDS: levETIRAcetam 750 MG Tablet PO (21:03)
[2024-11-23] MEDS: Atorvastatin Calcium 10 MG Tablet PO (21:03)
[2024-11-23 22:00] VITALS: PULSE 64; O2SAT 98
[2024-11-24 05:06] VITALS: BP 132/40; PULSE 66
[2024-11-24] MEDS: Nystatin Powder 15gm Bottle 1 APPLIC TOPICAL ×2 (05:06→20:59)
[2024-11-24] MEDS: hydrALAZINE 50 MG Tablet PO ×3 (05:06→20:57)
[2024-11-24 05:28] LABS: Anion Gap 9 (5-15); BUN 9 mg/dL (4-19); BUN/Creat Ratio 12.6 RATIO (10-20); Calcium,Total 8.7 mg/dL (7.6-11.0); Carbon Dioxide 20.7 mmol/L (21.0-32.0); Chloride 97 mmol/L (98-108); Creatinine, Serum 0.68 mg/dL (0.70-1.20); EST Glomerular Filtration Rate 88 (>60); Estimated Creatinine Clearance 39.62 ml/min (50-250); Glucose 92 mg/dL (70-99); Potassium 3.9 mmol/L (3.3-5.1); Sodium Level 127 mmol/L (133-145)
[2024-11-24 06:00] VITALS: BP 132/40; PULSE 66; RESP 16; TEMP 36.4; O2SAT 97
[2024-11-24] MEDS: APIXABAN 2.5 MG TABLET (WCH) PO ×2 (07:52→20:58)
[2024-11-24] MEDS: Zinc Sulfate 50 mg zinc (220 mg) ORAL capsule PO (07:52)
[2024-11-24] MEDS: Cyanocobalamin 500 MCG Tablet 1000 MCG PO (07:52)
[2024-11-24] MEDS: levETIRAcetam 750 MG Tablet PO ×2 (07:53→20:58)
[2024-11-24] MEDS: amLODIPine 5 MG Tablet PO (07:53)
[2024-11-24] MEDS: Cholecalciferol (Vit D3) 125 MCG CAPSULE (5,000 UNITS) PO (07:54)
[2024-11-24] MEDS: Sodium Chloride 1 GM Tablet PO ×2 (07:54→17:03)
[2024-11-24] MEDS: Amiodarone 200 MG Tablet PO (07:55)
[2024-11-24] MEDS: Multivitamins,Therapeutic Tablet 1 TABLET PO (07:55)
[2024-11-24] MEDS: busPIRone 5 MG Tablet PO ×2 (07:56→20:58)
[2024-11-24 14:21] VITALS: BP 146/47; PULSE 72
[2024-11-24 16:14] LABS: Bacteria 0 SEEN /hpf (None Seen); Mucous, Urine 0 SEEN /hpf (<or=2+); Squamous Epithelial Cells - UA 0 SEEN /hpf (5-10)
[2024-11-24 16:52] LABS: Color, Urine Yellow (Yellow); Glucose, Dipstick Normal (Normal); Ketone-Dipstick Negative (Negative); Leukocyte Esterase-Dipstick 100 /ul (Negative); Nitrite-Dipstick Negative (Negative); Occult Blood-Urine Negative /ul (Negative); Protein-Dipstick 15 mg/dl (Negative); Urine Bilirubin Dipstick Negative (Negative); Urine Clarity Clear (Clear); Urine Urobilinogen Normal (Normal)
[2024-11-24 17:43] VITALS: BP 136/40; PULSE 71; RESP 16; TEMP 36.7; O2SAT 96
[2024-11-24 18:30] LABS: Red Blood Cells-Urine 0-5 SEEN /hpf (0-5); White Blood Cells 5-10 SEEN /hpf (0-5)
[2024-11-24 20:57] VITALS: BP 149/42; PULSE 66
[2024-11-24] MEDS: Magnesium Chloride 64 MG Delay Rel.Tablet PO (20:58)
[2024-11-24] MEDS: Atorvastatin Calcium 10 MG Tablet PO (20:58)
[2024-11-25 06:00] VITALS: BP 143/43; PULSE 74; RESP 17; TEMP 36.3; O2SAT 98
[2024-11-25 07:14] VITALS: BP 143/43; PULSE 74
[2024-11-25] MEDS: hydrALAZINE 50 MG Tablet PO ×3 (07:14→21:59)
[2024-11-25] MEDS: Nystatin Powder 15gm Bottle 1 APPLIC TOPICAL ×2 (07:15→21:59)
[2024-11-25] MEDS: Multivitamins,Therapeutic Tablet 1 TABLET PO (08:46)
[2024-11-25] MEDS: Amiodarone 200 MG Tablet PO (08:46)
[2024-11-25] MEDS: Zinc Sulfate 50 mg zinc (220 mg) ORAL capsule PO (08:47)
[2024-11-25] MEDS: Cholecalciferol (Vit D3) 125 MCG CAPSULE (5,000 UNITS) PO (08:47)
[2024-11-25] MEDS: APIXABAN 2.5 MG TABLET (WCH) PO ×2 (08:47→21:57)
[2024-11-25] MEDS: Sodium Chloride 1 GM Tablet PO ×3 (08:47→16:23)
[2024-11-25] MEDS: Cyanocobalamin 500 MCG Tablet 1000 MCG PO (08:47)
[2024-11-25] MEDS: busPIRone 5 MG Tablet PO (08:47)
[2024-11-25] MEDS: levETIRAcetam 750 MG Tablet PO ×2 (08:47→21:57)
[2024-11-25 13:26] VITALS: BP 175/47; PULSE 88
[2024-11-25 18:00] VITALS: BP 149/46; PULSE 60; RESP 16; TEMP 36.2; O2SAT 98
[2024-11-25] MEDS: Atorvastatin Calcium 10 MG Tablet PO (21:57)
[2024-11-25 21:59] VITALS: BP 133/46; PULSE 63
[2024-11-25] MEDS: Senna/Docusate Sodium 1 Tablet 2 TABLET PO (22:00)
[2024-11-25] MEDS: Magnesium Chloride 64 MG Delay Rel.Tablet PO (22:38)
[2024-11-26 06:27] LABS: Anion Gap 10 (5-15); BUN 9 mg/dL (4-19); BUN/Creat Ratio 12.8 RATIO (10-20); Calcium,Total 8.8 mg/dL (7.6-11.0); Carbon Dioxide 22.9 mmol/L (21.0-32.0); Chloride 95 mmol/L (98-108); EST Glomerular Filtration Rate 87 (>60); Estimated Creatinine Clearance 39.62 ml/min (50-250); Glucose 101 mg/dL (70-99); Potassium 4.1 mmol/L (3.3-5.1); Sodium Level 127 mmol/L (133-145)
[2024-11-26 06:33] VITALS: BP 135/39; PULSE 67; RESP 15; TEMP 36.5; O2SAT 96
[2024-11-26 06:37] VITALS: BP 135/39; PULSE 67
[2024-11-26] MEDS: hydrALAZINE 50 MG Tablet PO ×3 (06:37→21:56)
[2024-11-26] MEDS: Nystatin Powder 15gm Bottle 1 APPLIC TOPICAL ×2 (06:38→21:59)
[2024-11-26] MEDS: Cholecalciferol (Vit D3) 125 MCG CAPSULE (5,000 UNITS) PO (08:32)
[2024-11-26] MEDS: levETIRAcetam 750 MG Tablet PO ×2 (08:32→21:56)
[2024-11-26] MEDS: Sodium Chloride 1 GM Tablet PO ×3 (08:32→17:05)
[2024-11-26] MEDS: APIXABAN 2.5 MG TABLET (WCH) PO ×2 (08:33→21:57)
[2024-11-26] MEDS: Cyanocobalamin 500 MCG Tablet 1000 MCG PO (10:00)
[2024-11-26] MEDS: Amiodarone 200 MG Tablet PO (10:01)
[2024-11-26] MEDS: Zinc Sulfate 50 mg zinc (220 mg) ORAL capsule PO (10:01)
[2024-11-26] MEDS: Furosemide 40 MG Tablet PO (10:01)
[2024-11-26] MEDS: Multivitamins,Therapeutic Tablet 1 TABLET PO (10:01)
--- NOTE | 2024-11-26 12:06 | PCM.PROGNOTE ---
Subjective Subjective Afebrile VSS - Maintaining appropriate oxygen saturation on RA Oral intake - FOOD good Discussed with nursing - no problems that need addressed Reviewed the THERAPY notes Medication list reviewed. All lab from today was personally reviewed. Sodium is 127, stable from 11/24/2024. The BUN is 9, down from 27 on 11/19/2024 and the creatinine is 0.7 which is down from 0.91 on 11/16/2024. Wt is going up, BUN is going down and creat is going down and sodium is going down........This is not consistent with only only drinking 580-600 cc per day? She continues to have c/o nausea and she has emesis. I was talking to her about DC and some of her issues and she started to gag......then she brought up a lot of thick mucous......more like a cough rather than regurgitation. I was not associated with taking pills or eating........I think this is due to anxiety/stress and she makes herself gag. She had been fine all morning. She perseverates on getting too many pills at one time.....she does this even when nursing spaces the medications out. she does not have this problem at home. She grew Pseudomonas aeruginosa in the urine but only 1000-10,000 colonies. She denies dysuria and has had no fever. The WBC is normal. NO tx indicted at this time. She had urinary frequency over the weekend but, I think this is related to anxiety and not UTI. She denies SOB, lightheadedness, CP, palpitations, c/o nausea but eating 75-100% of her meals most of the time, no abd pain and no diarrhea. Denies calf tenderness. Objective Data Objective Data Vital Signs: Vital Signs Temp Pulse Resp BP Pulse Ox O2 Del Method 97.7 F L 67 15 135/39 H 96 Room Air 11/26/24 06:33 11/26/24 06:37 11/26/24 06:33 11/26/24 06:37 11/26/24 06:33 11/26/24 06:33 Oxygen Delivery Method Room Air Weight: 106 lb 4.8 oz Body Mass Index (BMI) 24.7 Intake & Output: Intake and Output for Last 24 Hours 11/24/24 11/25/24 11/26/24 23:59 23:59 23:59 Intake Total 580 / 580 600 / 600 Output Total 425 / 425 525 / 525 300 / 300 Balance 155 / 155 75 / 75 -300 / -300 Lab / Micro Data 11/27/24 05:38 11/27/24 05:38 Labs: Laboratory Results - last 24 hr 11/26/24 05:26: Sodium 127 L, Potassium 4.1, Chloride 95 L, Carbon Dioxide 22.9, Anion Gap 10, BUN 9, Creatinine 0.70, Estim Creat Clear Calc 39.62 L, Est GFR (MDRD) Non-Af 87, BUN/Creatinine Ratio 12.8, Glucose 101 H, Calcium 8.8 Physical Exam Const alert, oriented x3 and no apparent distress HEENT moist oral mucous membranes Resp normal respiratory effort, normal air movement and clear to auscultation bilaterally Effort and Inspection: able to speak in complete sentences Cardio regular rate, regular rhythm, no rub and no gallops Cardio Narrative: No ectopy. She has a 3/6 PATY at the second RICS with radiation to the LVOT, LLSB, apex, carotids and into the left axilla. No diastolic MM appreciated. GI normal to inspection, nondistended, normoactive bowel sounds, soft to palpation and non-tender GI Narrative: No guarding with palpation. 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 Continue therapy 2. Lasix 40 mg p.o. today 3. Recheck a BMP in the AM. 4. DC Buspar.......because of nausea.......the nausea predated the Buspar and she is c/o taking too many pills. We discussed follow up as an OP with psychotherapy to learn to control her anxiety. Charges/Coding Visit Charges Inpatient E&M: 21729 Subs Hosp L1
[2024-11-26 14:09] VITALS: PULSE 62
[2024-11-26 18:00] VITALS: BP 149/50; PULSE 71; RESP 17; TEMP 36.5; O2SAT 97
[2024-11-26 21:56] VITALS: BP 144/47; PULSE 67
[2024-11-26] MEDS: Atorvastatin Calcium 10 MG Tablet PO (21:56)
[2024-11-26] MEDS: Magnesium Chloride 64 MG Delay Rel.Tablet PO (21:57)
[2024-11-27 05:25] VITALS: BP 159/53; PULSE 72
[2024-11-27] MEDS: hydrALAZINE 50 MG Tablet PO ×3 (05:25→20:17)
[2024-11-27] MEDS: Nystatin Powder 15gm Bottle 1 APPLIC TOPICAL ×2 (05:26→20:19)
[2024-11-27 05:58] LABS: Hematocrit 27.3 % (37-47); Hemoglobin 9.9 g/dL (12.0-15.0); Mean Corp Hgb Conc 36.3 g/dL (32-36); Mean Corpuscular Hgb 32.6 pg (27.0-32.0); Mean Corpuscular Volume 89.8 fL (81-99); Mean Platelet Vol. 10.2 fl (6.2-12.0); Platelet Count 226 K/mm3 (150-450); RBC Distribution Width CV 12.5 % (11.6-14.6); RBC Distribution Width SD 40.9 fl (35.1-43.9); Red Blood Count 3.04 M/mm3 (4.2-5.4); White Blood Count 8.6 K/mm3 (4.4-11.0)
[2024-11-27 06:00] VITALS: BP 159/53; PULSE 72; RESP 16; TEMP 36.7; O2SAT 96
[2024-11-27 06:33] LABS: Anion Gap 11 (5-15); BUN 11 mg/dL (4-19); BUN/Creat Ratio 13.8 RATIO (10-20); Calcium,Total 8.7 mg/dL (7.6-11.0); Carbon Dioxide 22.7 mmol/L (21.0-32.0); Chloride 93 mmol/L (98-108); Creatinine, Serum 0.77 mg/dL (0.70-1.20); EST Glomerular Filtration Rate 78 (>60); Estimated Creatinine Clearance 39.62 ml/min (50-250); Glucose 93 mg/dL (70-99); Potassium 3.8 mmol/L (3.3-5.1); Sodium Level 127 mmol/L (133-145)
[2024-11-27] MEDS: Sodium Chloride 1 GM Tablet PO ×3 (07:58→16:48)
[2024-11-27] MEDS: APIXABAN 2.5 MG TABLET (WCH) PO ×2 (10:04→20:17)
[2024-11-27] MEDS: Furosemide 40 MG Tablet PO (10:04)
[2024-11-27] MEDS: levETIRAcetam 750 MG Tablet PO ×2 (10:05→20:17)
[2024-11-27] MEDS: Multivitamins,Therapeutic Tablet 1 TABLET PO (10:05)
[2024-11-27] MEDS: Cyanocobalamin 500 MCG Tablet 1000 MCG PO (10:06)
[2024-11-27] MEDS: Zinc Sulfate 50 mg zinc (220 mg) ORAL capsule PO (10:51)
[2024-11-27] MEDS: Cholecalciferol (Vit D3) 125 MCG CAPSULE (5,000 UNITS) PO (10:51)
[2024-11-27] MEDS: Amiodarone 200 MG Tablet PO (10:51)
[2024-11-27 14:26] VITALS: BP 155/59; PULSE 70
--- NOTE | 2024-11-27 16:02 | PCM.DC ---
Discharge Instructions Diet Discharge Diet: - (Limit fluid to five 8 ounce cups a day. Regular diet. ) DC O2, CPAP, BIPAP needs Home O2 Discharge instructions: No Dressing / Incision Discharge Activity: May Not Drive, May Shower and Use Walker Weight Bearing Status: Full weight bearing Dressing / Incision Call your doctor if you observe: Fever of 101 or Higher, Inability to urinate, Inability to have a bowel movement, Shortness of breath, Dizziness, Fainting spells, Swelling in the ankles, Chest pain and Calf discomfort Follow Up Care Please Follow Up With: Monika Venegas MD When: listed later in this document. You will also need to follow up with Dr. Melchor from neurology. Test Results: Test results from this visit will be discussed in further detail at your follow-up appointment, if applicable. Pending Tests Upon Discharge: none Discharge Plan Admission Admit Date/Time: 11/12/24 18:16 Primary Reason for Your Visit: Debility Attending Provider: Jo-Ann Arias Primary Care Provider: Monika Venegas Instructions Patient Instructions: Anxiety Disorders Tx, ED Anxiety Reaction, ED Panic Attack Additional Instructions / Restrictions: 1. We have not witnessed any seizures while you have been on rehab. We decreased the dose of the Keppra (antiepileptic drug) to 750 mg twice a day from 1000 mg twice a day. You had an EEG at [facility] and it was negative for seizure. You will need to follow up with a neurologist. There is a excellent neurologist in [place] and his name is Dr. Melchor. He may want to do some additional testing to see if you even need to be on and antiseizure medication. 2. Your sodium has been low while on rehab. This was a problem the last time you were on rehab also. 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 With this diagnosis the problem is NOT that your body is low in sodium.....it is that you have an excess of water that is diluting the sodium out. The treatment for this condition is to restrict fluid intake. You should not drink more than five 8 oz cups of water a day. Sometimes this is not enough and you have to take salt tabs as well. While you were on rehab we also had to give you a diuretic called Lasix a couple times to get rid of the excess water. You will need to have follow up lab done after you leave rehab to make sure the sodium is staying stable. Sometimes when people have SIADH and it is hard to keep the sodium up they have to see a rate setter(kidney doctor) to help manage the medications. I would recommend follow up with Dr. Schulte who is a kidney doctor who sees outpatients at the hospital in his office. 3. You are very anxious. You tend to get an idea in your head and stick with it and agonize about it, even when things have been changed. Nausea can be a sx of uncontrolled anxiety. When we get anxious it can cause lightheadedness, headache, palpitations, chest pain, shortness of breath, nausea, diarrhea, difficulty sleeping and fatigue. Being anxious can feel terrible. I think some of the symptoms you have are due to anxiety and I suspect you would feel a lot better if this could be controlled. I think you would benefit from seeing a psychiatrist to try medication to control your anxiety and I also think you would benefit from counselling. TAlk to your PCP about this. 4. If you or Alexsandra have questions after you leave rehab please do not hesitate to call me. I have given you some handouts that talk about anxiety and some of the symptoms uncontrolled anxiety can cause......you have many of these symptoms.......I hope you and Alexsandra are able to read these together so you can make a plan for getting help to control anxiety. Your heart rate is normal now that you are off COREG. You continue to take Amiodarone that helps keep your heart rate in control. You are back on Eliquis which you need to continue to take to prevent strokes due to atrial fibrillation (AFIB). OFFICE: [phone] CELL: [phone] NURSES STATION ON REHAB: [phone] Discharge Orders/Prescriptions Prescriptions: New hydralazine 50 mg Tablet 50 mg PO TID Qty: 90 0RF levetiracetam 750 mg Tablet 750 mg PO BID Qty: 60 0RF sodium chloride 1,000 mg Tablet,Soluble 1,000 mg PO TIDCM Qty: 90 0RF Continued multivitamin Tablet 1 tablet PO DAILY cyanocobalamin (vitamin B-12) 500 MCG tablet,chewable 1,000 mcg PO DAILY cholecalciferol (vitamin D3) 125 MCG capsule 125 mcg PO DAILY zinc sulfate [Orazinc] 50 mg zinc (220 mg) capsule 220 mg PO DAILY acetaminophen 325 mg capsule 325 mg PO Q4H PRN (Reason: pain) magnesium chloride 64 mg PO QHS atorvastatin 10 mg tablet 10 mg PO QHS Qty: 90 3RF amiodarone 200 mg tablet 200 mg PO DAILY Qty: 90 3RF apixaban 2.5 mg tablet 2.5 mg PO BID Qty: 180 4RF Discontinued lisinopril 10 mg tablet 10 mg PO DAILY cefdinir 300 mg capsule 300 mg PO BID levetiracetam [Keppra] 1,000 mg tablet 1,000 mg PO BID Referrals / Follow Up: Andrew Bueno [Other] - 11/28/24 12:00 pm Monika Venegas MD [Primary Care Provider] - 12/12/24 11:00 pm Disposition Disposition (needs filled in before D/C Order can be placed): Home Health Service
--- NOTE | 2024-11-27 16:47 | PCM.DC.SUM ---
Providers Date of Admission: 11/12/24 Date of Discharge: 11/28/24 Primary Care Physician: Dr. Monika Venegas MD Consultations 11/28/24 12:17 Consult: Nephrology Routine Consulting Provider: [facility] Reason for Consult: hyponatremia with hx SIADH EMERGENT Consult: Yes MD Notified: Yes Date Notified: 11/28/24 Time Notified: 12:17 Method of Notification: Answering Service Reason For Visit: SUBDURAL HEMATOMA Diagnosis Discharge Diagnosis (1) Physical debility: Status: Acute Code(s): R53.81 - Other malaise (2) Generalized muscle weakness: Status: Acute Code(s): M62.81 - Muscle weakness (generalized) Plan: Improved. (3) Seizure disorder: Status: Acute Code(s): G40.909 - Epilepsy, unspecified, not intractable, without status epilepticus Plan: I suspect the etiology of the slurred speech and difficulty walking was severe bradycardia with poor cerebral perfusion. EEG was negative at [facility]. She was placed on Keppra 1,000 BID which was making her drowsy. Also likely contributing to hyponatremia. We decreased the dose to 750 mg while on rehab and she has had no events. HR is now always WNL since Coreg was discontinued, She remains on Amiodarone 200 mg daily. She will follow up with neurology to address thye need for continued Keppra. (4) Intracranial epidural hematoma: Status: Chronic Code(s): S06.4XAA - Epidural hemorrhage with loss of consciousness status unknown, initial encounter Plan: The epidural hematoma is not new. She had no recent head trauma. Neurosurgery recommended holding Eliquis for 2 weeks and then restarting. She has been restarted on Eliquis 2.5 mg BID prior to DC from rehab. (5) Acute cystitis: Status: Resolved Code(s): N30.00 - Acute cystitis without hematuria Qualifiers: Hematuria presence: without hematuria Qualified Code(s): N30.00 - Acute cystitis without hematuria Plan: This was present at admission to rehab and she came to us on Cefdinir. She had a UA done on 11/25 prior to DC and it had 5-10 WBC's with no bacteria. The urine culture grew 1000-10,000 colonies of Pseudomonas aeruginosa. She is afebrile with a normal white blood cell count and denies dysuria. Asymptomatic bacteriuria in the elderly is not uncommon and since she is afebrile, asymptomatic and has a normal white blood cell count there is no reason to treat this. 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 (8) Bradycardia, sinus: Status: Inactive Code(s): R00.1 - Bradycardia, unspecified Plan: Resolved with the4 discontinuation of Coreg. HR is WNL on Amiodarone 200 mg daily. (9) [facility] current use of amiodarone: Status: Chronic Code(s): Z79.899 - Other fdc (current) drug therapy (10) High cholesterol: Status: Chronic Code(s): E78.00 - Pure hypercholesterolemia, unspecified (11) HTN (hypertension): Status: Chronic Code(s): I10 - Essential (primary) hypertension Qualifiers: Hypertension type: primary hypertension Qualified Code(s): I10 - Essential (primary) hypertension Plan: Continue atorvastatin (12) Carotid artery bruit: Status: Chronic Code(s): R09.89 - Other specified symptoms and signs involving the circulatory and respiratory systems Qualifiers: Laterality: bilateral Qualified Code(s): R09.89 - Other specified symptoms and signs involving the circulatory and respiratory systems (13) Mild aortic stenosis: Status: Chronic Code(s): I35.0 - Nonrheumatic aortic (valve) stenosis (14) Grade II diastolic dysfunction: Status: Chronic Code(s): I51.89 - Other ill-defined heart diseases (15) Chronic anemia: Status: Chronic Code(s): D64.9 - Anemia, unspecified (16) Hypo-osmolality and hyponatremia: Status: Resolved Code(s): E87.1 - Hypo-osmolality and hyponatremia Plan: 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 The Keppra may be causing the sodium to continue to drop. She was placed on fluid restriction, salt tabs and was given Lasix with no improvement. On 11/28/25 the sodium was 125. She was given 15 mg of Tolvaptan on 11/28 and the sodium on 11/29 was 135. She is being discharged on salt tabs and fluid restircition and will follow up with Dr. Schulte post DC from rehab. (17) Presbycusis: Status: Chronic Code(s): H91.10 - Presbycusis, unspecified ear Qualifiers: Laterality: bilateral Qualified Code(s): H91.13 - Presbycusis, bilateral Plan: She is very hard of hearing and will not wear her hearing aids. she does not think they help BUT, when she has them in I do not have to repeat myself multiple times and scream at her. (18) Decubitus ulcer of coccyx, stage 2: Status: Acute Code(s): L89.152 - Pressure ulcer of sacral region, stage 2 Plan: Mepilex applied and will have HHC [place] with SN to follow the ulcer to healing. Will continue Mepilex and off loading. (19) Severe anxiety: Status: Chronic Code(s): F41.9 - Anxiety disorder, unspecified Plan: She has severe anxiety and many somatic complaints. She perseverates on things that happened in the past and keeps repeating the same thing over and over. She c/o nausea chronically and associates this with getting too many pills at once.......nursing spread her pills out and she continues to repeat she is getting too many pills at once. She c/o nausea even when she has not had any pills. When she gets anxious she will start gagging and regurgitating. What she brings up is thick clear secretions.......not gastrc contents. I have watched her do this and it comes out of the blue.......neeraj if we are talking something that makes her anxious. Immediately after she will eat? She is eating 75-100% of all her meals despite c/o nausea. She was tried on Buspar with no success on rehab and it was discontinued. I have recommended that she follow up with psychotherapy to get her anxiety treated. Plan 1. DC home with [facility]. BMP in 1 week. HHC to draw. 2. Continue Mepilex to the decubitus ulcer C SN will follow 3. BMP in 1 week - results to PCP. 4. Follow up with Dr. Schulte for chronic hyponatremia. 5. Follow up with Dr. Melchor 6. COntinue to follow up with [facility] 7. Follow up with PCP Medications at Discharge Home Medications multivitamin 1 tablet PO DAILY supplement 08/12/20 cholecalciferol (vitamin D3) 125 mcg (5,000 unit) capsule 125 mcg PO DAILY supplement 08/14/20 cyanocobalamin (vitamin B-12) 500 mcg chewable tablet 1,000 mcg PO DAILY supplement 08/14/20 zinc sulfate 50 mg zinc (220 mg) capsule (Orazinc) 220 mg PO DAILY vitamin 12/06/22 amiodarone 200 mg tablet 200 mg PO DAILY heart #90 TABLETS 12/12/23 atorvastatin 10 mg tablet 10 mg PO QHS for cholesterol #90 TABLETS 12/12/23 apixaban 2.5 mg tablet 2.5 mg PO BID called to [facility] tabs 08/13/24 acetaminophen 325 mg capsule 325 mg PO Q4H PRN pain 11/12/24 magnesium chloride 64 mg PO QHS Supplement 11/12/24 hydralazine 50 mg tablet 50 mg PO TID #90 tabs 11/27/24 levetiracetam 750 mg tablet 750 mg PO BID #60 tabs 11/27/24 sodium chloride 1,000 mg soluble tablet 1,000 mg PO TIDCM #90 tabs 11/27/24 Hospital Course Operations None Procedures Electroencephalogram (Done at [facility]. No epileptiform activity but, she had continuous left hemispheric polymorphic theta slow-wave activity indicative of a structural lesion over the left hemisphere which is where the meningioma was.) Summary of Care Provided Minutes Spent on Discharge: 42 Hospital Course: ANDERS MCGUIRE, is a 78 YO F with a PMH of paroxysmal atrial fibrillation, hypertension, hyperlipidemia, CVA (following resection of meningioma in December of 2022), chronic hyponatremia, large meningioma resected at [facility] by Dr. Kincaid in December of 2022, cerebral vascular disease involving multiple intracerebral arteries, rheumatic mitral stenosis, pulmonary hypertension with a PA systolic estimated at 48 in December 2022, hx of epidural hematoma (post op) and C DIFF infection in the past who presented to the emergency department at [facility] on 11/07/2024 complaining of increased slurred speech over her baseline and difficulty ambulating. Noncontrast brain CT showed a moderate-sized mixed density left subdural fluid collection concerning for bleeding. She was transferred to [facility] ED for possible subdural hematoma. She was given Kcentra in the ED prior to transfer to reverse the Apixaban. MRI of the brain, MRA brain and MRA neck showed no evidence of a new CVA. Neurology evaluated the patient and felt her history was highly suggestive of seizures although no epileptic discharges were captured on EEG. She had continuous left hemispheric polymorphic theta slow-wave activity indicative of a structural lesion over the left hemisphere and this is the area where she had the craniotomy in 2022. She was started on Keppra 1000 mg p.o. twice daily. Neurosurgery was consulted for the extradural fluid collection and recommended holding anticoagulation for 2 weeks since she could have a subacute on chronic extradural fluid collection related to a fall she had approximately 1 month prior to presenting to the emergency department at [facility]. Coreg was held for bradycardia but, amiodarone was continued. Blood pressures were high so lisinopril was increased to 10 mg daily. Doxazosin, HCTZ and spironolactone were discontinued. Serum osmolality was low at [facility] but, I could not find a urine osmolality or urine sodium in my review of the chart. Speech was back to baseline at the time of DC from [facility]. She was seen by PT/OT/ST at [facility] and acute rehab was recommended at DC. She was transferred to the acute inpt rehab unit at [facility] on 11/12/24 for 3 hours of therapy daily to restore function/independence at or near her level prior to recent events. Since her craniotomy in 2022 she requires assistance from family for many ADL's. anders was taking Cefdinir at the time of admission to acute rehab for reported urinary tract infection. Sodium was 127 at admission to rehab. Serum osmolality was 271 and urine osmolality 591. Urine sodium was 89. Sodium dropped to 124 on 11/15/2024. She is chronically hyponatremic. Lisinopril was discontinued since it can cause a low sodium. She was placed on fluid restriction and salt tabs but, sodium remained low. She was given 2 dose of Lasix and the sodium came up to 134. When the sodium was 134 the BUN was 32 with a creatinine of 0.94. Salt tabs were decreased to twice a day and fluid restriction was continued. The sodium began to decreases again. On 11/28/25 it was 125 and this was on fluid restriction, salt tabs 1 gm TID and 2 doses of Lasix. Urine osmolality was 519 and the urine sodium was 48. Serum osmolality was 281. She was given Tolvaptan 15 mg and on 11/29 the sodium was 135. She will continue salt tabs and fluid restriction at home and will follow up with Dr. Schulte. She will have a BMP done in 1 week post [place] to draw and send results to the PCP. with fluid restriction and reportedly drinking less than 1 liter a day and often less than 800 cc the BUN has remained at 9-11 since 11/19 when the BUN was 27 and the sodium was 134? Creat has remained in the 0.70 - 75 range. At the time of discharge she is able to do 8 sit to stands at MIN A using her upper extremities to rise in 30 seconds. She does a 3/4 rise and does not get fully upright. She is able to ascend/descend three 4 inch steps with 2 handrails at min assist/contact-guard assist. She has ambulated up to 130 feet with a rollator walker. She needs moderate assistance to get out of bed but is min assist for sit to stand. She is supervision/set up for eating and grooming. She requires minimal assistance with tub/shower transfer, bathing, upper body dressing and toileting. She is max assist with toilet transfer. She requires moderate assistance for lower body bathing. anders has some barriers to making progress in therapy. she has severe hearing loss and does not wear her hearing aids. They do not ring aids in and I am speaking with repeat myself multiple times nor do I have to scream at her. When she does not have the hearing aids in she needs a lot of cuing to complete activities. In addition to hearing loss she is very anxious and frequently does not listen to what is being said to her because she is talking over the person peaking to her. She has numerous somatic complaints and perseverates on things that happened in the past but, are not happening currently. She chronically c/o nausea but, she is eating 75-100% of her meals. She days the nausea is do to getting too many pills at once but, nursing is spreading them out and she continues to c.o this. When you are speaking with her about something that makes her anxious she gets tremulous, shakes her legs and then starts gagging. I have watched her do this and then she spits out some thick, clear spit. It is not even sputum. No emesis and then she will eat a meal? She was tried on Buspar while on rehab but, it was not effective. I have recommended to her daughter Alexsandra that Anders be seen by psychiatry/psychotherapy to get her anxiety under control. She has had no seizures while on rehab. I suspect the slurred speech and trouble walking at presentation to the ER were due to severe bradycardia/hypotension and not due to seizures. Keppra was decreased to 750 mg BID while on rehab and she has had no slurred speech or increased neurologic events. No one has witnessed any seizure activity. she is going to follow up with Dr. Melchor post [place] from rehab. HR is WNL on Amiodarone 200 mg daily with no tachycardia. She has not been bradycardic. Anders was discharged home with her daughter Alexsandra on 11/29/2024 and will have [facility] home health care. Will have home health care draw a BMP in 1 week with the results to go to her primary care physician. Physical Exam Const alert, oriented x3 and no apparent distress Constitutional Narrative: Extremely anxious HEENT HEENT Narrative: MM are a little dry No evidence of thrush. She has localized alopecia in the left frontal cranium secondary to previous meningioma with resection. Eyes PERRL, EOMs intact bilaterally, conjunctivae normal and no scleral icterus Eyes Narrative: No discharge from the eyes. Neck Neck Narrative: She has loud bruits over both carotids however this may be due to radiation of the aortic stenosis murmur and not due to carotid stenosis. MRI of the neck done recently did not mention any significant carotid stenosis. Chest Chest: symmetrical chest wall rise Resp normal respiratory effort, normal air movement and clear to auscultation bilaterally Resp Narrative: Initially had some coarse crackles in the bases but after few deep breaths this resolved. She has been lying in bed all day and not taking deep breaths. She has no cough. Effort and Inspection: able to speak in complete sentences Cardio regular rate, regular rhythm, no rub and no gallops Cardio Narrative: No ectopy. She has a 3/6 PATY at the second RICS with radiation to the LVOT, LLSB, apex, carotids and into the left axilla. No diastolic MM appreciated. GI normal to inspection, nondistended, normoactive bowel sounds, soft to palpation and non-tender GI Narrative: No guarding with palpation. Ate 75 to 100% of her breakfast today Extremity no calf tenderness and no pedal edema Skin General Skin Exam: no breakdown Rashes: no rashes Neuro CN's II-XII intact bilaterally, moves all extremities and no focal motor deficits Neuro Narrative: Generalized weakness. Severe hearing loss. Psych Psych Narrative: Severely anxious with tremulous upper extremities and shaking her legs. Tearful at times. Gagging at times. Weight / BMI Weight Weight: 106 lb 4.8 oz Body Mass Index (BMI) 24.7 ABG / Lab / Microbiology Data 11/27/24 05:38 11/29/24 07:37 Laboratory: Laboratory Results - last 24 hr 11/28/24 05:12: Sodium 126 L, Potassium 3.8, Chloride 92 L, Carbon Dioxide 22.8, Anion Gap 11, BUN 10, Creatinine 0.75, Estim Creat Clear Calc 39.62 L, Est GFR (MDRD) Non-Af 80, BUN/Creatinine Ratio 13.0, Glucose 94, Calcium 8.9, Phosphorus 3.5, Albumin 3.6 11/28/24 13:16: Serum Osmolality 281 11/28/24 16:14: Urine Osmolality 519, Ur Random Sodium 48 11/29/24 07:37: Sodium 135, Potassium 4.0, Chloride 101, Carbon Dioxide 23.5, Anion Gap 10, BUN 11, Creatinine 0.88, Estim Creat Clear Calc 36.01 L, Est GFR (MDRD) Non-Af 66, BUN/Creatinine Ratio 12.2, Glucose 114 H, Calcium 8.8 Microbiology: Microbiology 11/25/24 07:47 Urine Catheter - Catheter Urine Culture - Final Pseudomonas aeruginosa D/C Instructions Discharge Diet: - (Limit fluid to five 8 ounce cups a day. Regular diet. ) Weight Bearing Status: Full weight bearing Call your doctor if you observe: Fever of 101 or Higher, Inability to urinate, Inability to have a bowel movement, Shortness of breath, Dizziness, Fainting spells, Swelling in the ankles, Chest pain and Calf discomfort DC O2, CPAP, BIPAP Needs Home O2 Discharge instructions: No Pending Tests Upon Discharge: none Please Follow Up With: Monika Venegas MD When: listed later in this document. You will also need to follow up with Dr. Melchor from neurology. Meaningful Use Info Meaningful Use Meaningful Use Diagnoses (Choose all that apply): None applicable Ischemic Stroke Statin Dosing Therapy Reference: STATIN DOSE THERAPY REFERENCE: * Patients > 75 years receive moderate or high dose statin therapy. * Patients 75 years or YOUNGER should receive HIGH intensity statin dose unless contraindicated. You will be required to document reason for non-treatment if statin daily dose does not meet guidelines. HIGH DOSE STATIN THERAPY DAILY Atorvastatin > than or = to 40 mg Rosuvastatin > than or = to 20 mg Amlodipine + Atorvastatin > than or = to 2.5/40 mg Ezetimibe + Simvastatin 10/80 mg Simvastatin 80mg Discharge Plan Admission Admit Date/Time: 11/12/24 18:16 Primary Reason for Your Visit: Debility Attending Provider: Jo-Ann Arias Primary Care Provider: Monika Venegas Consulting Providers: Chente Leung; Yifan Roque; Gagan Schulte; Mattie Haynes; Christy Baer; Argentina Schmitz; Sanjuana Flores; Deepak Byrd; Gibson Yang; Sylvia Cabral Instructions Patient Instructions: Anxiety Disorders Tx, ED Anxiety Reaction, ED Panic Attack Additional Instructions / Restrictions: 1. We have not witnessed any seizures while you have been on rehab. We decreased the dose of the Keppra (antiepileptic drug) to 750 mg twice a day from 1000 mg twice a day. You had an EEG at [facility] and it was negative for seizure. You will need to follow up with a neurologist. There is a excellent neurologist in [place] and his name is Dr. Melchor. He may want to do some additional testing to see if you even need to be on and antiseizure medication. 2. Your sodium has been low while on rehab. This was a problem the last time you were on rehab also. 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 With this diagnosis the problem is NOT that your body is low in sodium.....it is that you have an excess of water that is diluting the sodium out. The treatment for this condition is to restrict fluid intake. You should not drink more than five 8 oz cups of water a day. Sometimes this is not enough and you have to take salt tabs as well. While you were on rehab we also had to give you a diuretic called Lasix a couple times to get rid of the excess water. You will need to have follow up lab done after you leave rehab to make sure the sodium is staying stable. Sometimes when people have SIADH and it is hard to keep the sodium up they have to see a wan support specialist(kidney doctor) to help manage the medications. I would recommend follow up with Dr. Schulte who is a kidney doctor who sees outpatients at the hospital in his office. 3. You are very anxious. You tend to get an idea in your head and stick with it and agonize about it, even when things have been changed. Nausea can be a sx of uncontrolled anxiety. When we get anxious it can cause lightheadedness, headache, palpitations, chest pain, shortness of breath, nausea, diarrhea, difficulty sleeping and fatigue. Being anxious can feel terrible. I think some of the symptoms you have are due to anxiety and I suspect you would feel a lot better if this could be controlled. I think you would benefit from seeing a psychiatrist to try medication to control your anxiety and I also think you would benefit from counselling. TAlk to your PCP about this. 4. If you or Alexsandra have questions after you leave rehab please do not hesitate to call me. I have given you some handouts that talk about anxiety and some of the symptoms uncontrolled anxiety can cause......you have many of these symptoms.......I hope you and Alexsandra are able to read these together so you can make a plan for getting help to control anxiety. Your heart rate is normal now that you are off COREG. You continue to take Amiodarone that helps keep your heart rate in control. You are back on Eliquis which you need to continue to take to prevent strokes due to atrial fibrillation (AFIB). OFFICE: [phone] CELL: [phone] NURSES STATION ON REHAB: [phone] Discharge Orders/Prescriptions Prescriptions: New hydralazine 50 mg Tablet 50 mg PO TID Qty: 90 0RF levetiracetam 750 mg Tablet 750 mg PO BID Qty: 60 0RF sodium chloride 1,000 mg Tablet,Soluble 1,000 mg PO TIDCM Qty: 90 0RF Continued multivitamin Tablet 1 tablet PO DAILY cyanocobalamin (vitamin B-12) 500 MCG tablet,chewable 1,000 mcg PO DAILY cholecalciferol (vitamin D3) 125 MCG capsule 125 mcg PO DAILY zinc sulfate [Orazinc] 50 mg zinc (220 mg) capsule 220 mg PO DAILY acetaminophen 325 mg capsule 325 mg PO Q4H PRN (Reason: pain) magnesium chloride 64 mg PO QHS atorvastatin 10 mg tablet 10 mg PO QHS Qty: 90 3RF amiodarone 200 mg tablet 200 mg PO DAILY Qty: 90 3RF apixaban 2.5 mg tablet 2.5 mg PO BID Qty: 180 4RF Discontinued lisinopril 10 mg tablet 10 mg PO DAILY cefdinir 300 mg capsule 300 mg PO BID levetiracetam [Keppra] 1,000 mg tablet 1,000 mg PO BID Other Ambulatory Orders: Basic Metabolic Profile (BMP) (Routine) Timeframe: 1 Week Location: Determined by Patient Ordered By: Dr. Jo-Ann Arias Referrals / Follow Up: Andrew Bueno [Other] - 12/06/24 2:30 pm (this will be an over the phone appt. ) Monika Venegas MD [Primary Care Provider] - 12/03/24 4:10 pm (Seeing Dr. Kiran from now on. ) Gagan Schulte MD [Med Staff - Consulting] - (Dr Schulte's office will contact you) Odilon Melchor MD [Non-Staff -Ordering Privileges] - 12/20/24 9:00 am () Disposition Disposition (needs filled in before D/C Order can be placed): Home Health Service Charges/Coding Visit Charges Inpatient E&M: 73999 Disch Hosp >30min
[2024-11-27 17:41] VITALS: BP 148/42; PULSE 71; RESP 17; TEMP 36.7; O2SAT 97
[2024-11-27 20:10] VITALS: BP 133/38; PULSE 66; PULSE 71; RESP 17; O2SAT 97
[2024-11-27 20:17] VITALS: BP 133/38; PULSE 66
[2024-11-27] MEDS: Magnesium Chloride 64 MG Delay Rel.Tablet PO (20:17)
[2024-11-27] MEDS: Atorvastatin Calcium 10 MG Tablet PO (20:17)
[2024-11-28 05:03] VITALS: BP 139/40; PULSE 67; RESP 15; TEMP 36.7; O2SAT 94
[2024-11-28 05:06] VITALS: BP 139/40; PULSE 67
[2024-11-28] MEDS: hydrALAZINE 50 MG Tablet PO ×3 (05:06→20:17)
[2024-11-28 06:12] LABS: Anion Gap 10 (5-15); BUN 10 mg/dL (4-19); BUN/Creat Ratio 12.9 RATIO (10-20); Calcium,Total 8.6 mg/dL (7.6-11.0); Carbon Dioxide 23.2 mmol/L (21.0-32.0); Chloride 92 mmol/L (98-108); Creatinine, Serum 0.77 mg/dL (0.70-1.20); EST Glomerular Filtration Rate 77 (>60); Estimated Creatinine Clearance 39.62 ml/min (50-250); Glucose 95 mg/dL (70-99); Potassium 3.8 mmol/L (3.3-5.1); Sodium Level 125 mmol/L (133-145)
[2024-11-28] MEDS: Sodium Chloride 1 GM Tablet PO ×3 (08:02→17:03)
[2024-11-28] MEDS: Amiodarone 200 MG Tablet PO (08:03)
[2024-11-28] MEDS: Cyanocobalamin 500 MCG Tablet 1000 MCG PO (08:03)
[2024-11-28] MEDS: APIXABAN 2.5 MG TABLET (WCH) PO ×2 (08:03→20:16)
[2024-11-28] MEDS: levETIRAcetam 750 MG Tablet PO ×2 (08:03→20:16)
[2024-11-28] MEDS: Multivitamins,Therapeutic Tablet 1 TABLET PO (08:03)
[2024-11-28] MEDS: Cholecalciferol (Vit D3) 125 MCG CAPSULE (5,000 UNITS) PO (08:04)
[2024-11-28] MEDS: Zinc Sulfate 50 mg zinc (220 mg) ORAL capsule PO (08:04)
[2024-11-28] MEDS: TOLVAPTAN 15 MG TABLET PO (14:28)
[2024-11-28 14:29] VITALS: PULSE 68
--- NOTE | 2024-11-28 15:45 | CASEMGMT ---
Social Work notified this worker that pt's sodium levels were abnormal and will be discharging today as planned. will recheck tomorrow for new DC date. Nursing and notified pt and dtr. SALINAS phoned [facility]. Vanessa Zhao MEDICAL ONCOLOGY PHYSICIAN WHEELAGE CLERK
[2024-11-28 16:19] LABS: Albumin, Serum 3.6 g/dL (3.4-4.8); Anion Gap 11 (5-15); BUN 10 mg/dL (4-19); Calcium,Total 8.9 mg/dL (7.6-11.0); Carbon Dioxide 22.8 mmol/L (21.0-32.0); Chloride 92 mmol/L (98-108); Creatinine, Serum 0.75 mg/dL (0.70-1.20); EST Glomerular Filtration Rate 80 (>60); Estimated Creatinine Clearance 39.62 ml/min (50-250); Glucose 94 mg/dL (70-99); Phosphorus 3.5 mg/dL (2.7-4.5); Potassium 3.8 mmol/L (3.3-5.1); Sodium Level 126 mmol/L (133-145)
[2024-11-28 17:22] VITALS: BP 125/35; PULSE 71; RESP 16; TEMP 37.2; O2SAT 96
[2024-11-28 18:38] LABS: Urine Sodium 48 mmol/L (Not Establ.)
[2024-11-28 19:45] VITALS: BP 136/32; PULSE 67; RESP 16; O2SAT 96
[2024-11-28] MEDS: Magnesium Chloride 64 MG Delay Rel.Tablet PO (20:16)
[2024-11-28 20:17] VITALS: BP 136/32; PULSE 67
[2024-11-28] MEDS: Atorvastatin Calcium 10 MG Tablet PO (20:18)
[2024-11-28 23:13] LABS: Osmolality, Urine 519 mOsm/KG
[2024-11-28 23:15] LABS: Osmolality, Serum 281 mOsm/KG (280-301)
[2024-11-29 06:14] VITALS: BP 126/44; PULSE 70
[2024-11-29] MEDS: hydrALAZINE 50 MG Tablet PO ×2 (06:14→08:20)
[2024-11-29 06:18] VITALS: BP 126/44; PULSE 70; RESP 20; TEMP 37.1; O2SAT 97
[2024-11-29] MEDS: Sodium Chloride 1 GM Tablet PO ×2 (08:19→11:13)
[2024-11-29] MEDS: APIXABAN 2.5 MG TABLET (WCH) PO (08:19)
[2024-11-29] MEDS: Amiodarone 200 MG Tablet PO (08:19)
[2024-11-29] MEDS: Cholecalciferol (Vit D3) 125 MCG CAPSULE (5,000 UNITS) PO (08:19)
[2024-11-29] MEDS: levETIRAcetam 750 MG Tablet PO (08:19)
[2024-11-29] MEDS: Zinc Sulfate 50 mg zinc (220 mg) ORAL capsule PO (08:19)
[2024-11-29 08:20] VITALS: BP 126/44; PULSE 70
[2024-11-29] MEDS: Cyanocobalamin 500 MCG Tablet 1000 MCG PO (08:20)
[2024-11-29] MEDS: Multivitamins,Therapeutic Tablet 1 TABLET PO (08:23)
[2024-11-29 08:33] LABS: Anion Gap 10 (5-15); BUN 11 mg/dL (4-19); BUN/Creat Ratio 12.2 RATIO (10-20); Calcium,Total 8.8 mg/dL (7.6-11.0); Carbon Dioxide 23.5 mmol/L (21.0-32.0); Chloride 101 mmol/L (98-108); Creatinine, Serum 0.88 mg/dL (0.70-1.20); EST Glomerular Filtration Rate 66 (>60); Estimated Creatinine Clearance 36.01 ml/min (50-250); Glucose 114 mg/dL (70-99); Sodium Level 135 mmol/L (133-145)
--- NOTE | 2024-11-29 11:50 | WOUNDNOTE ---
skin photo: cleft
--- NOTE | 2024-11-29 11:50 | WOUNDNOTE ---
Was asked to see patient for pressure injury to the coccyx. nursing had applied a foam dressing. pt stood in room for this nurse to assess. removed the foam dressing. there is a small area of folded skin from a previous pilonidal cyst removal. no pressure injury noted. no need for dressing to be applied. discussed with patient that she could use a moisture barrier cream if the area gets sore. does not appear to be red or moist at this time. see skin photo.
--- NOTE | 2024-11-29 12:19 | CASEMGMT ---
Social Work SW confirmed with that pt is stable and cleared to DC this date. spoke with dtr. Dr requesting SW provide dtr with [place] resources to assist with caregiver burnout. SW to provide. SALINAS notified [facility] of DC. Vanessa Zhao PHOTOGRAPHY PROFESSOR CAR SALES REPRESENTATIVE
== END 2024-11-29 12:59 | disposition home health service (06) | DRG 101 ==
PROVIDERS: Admitting Provider Internal Medicine; PCP Family Medicine; Referring Provider Internal Medicine; Visit Provider Internal Medicine
DX: G40.909 Epilepsy, unspecified, not intractable, without status epilepticus (principal); E22.2 Syndrome of inappropriate secretion of antidiuretic hormone; I13.0 Hypertensive heart and chronic kidney disease with heart failure and stage 1 through stage 4 chronic kidney disease, or unspecified chronic kidney disease; I50.32 Chronic diastolic (congestive) heart failure; N30.00 Acute cystitis without hematuria; L89.152 Pressure ulcer of sacral region, stage 2; I27.20 Pulmonary hypertension, unspecified; B96.5 Pseudomonas (aeruginosa) (mallei) (pseudomallei) as the cause of diseases classified elsewhere; I70.0 Atherosclerosis of aorta; I08.0 Rheumatic disorders of both mitral and aortic valves; D64.9 Anemia, unspecified; I48.0 Paroxysmal atrial fibrillation; R00.1 Bradycardia, unspecified; E78.00 Pure hypercholesterolemia, unspecified; F41.9 Anxiety disorder, unspecified; H91.13 Presbycusis, bilateral; N18.2 Chronic kidney disease, stage 2 (mild); Z79.01 Long term (current) use of anticoagulants; M62.81 Muscle weakness (generalized); Z79.899 Other long term (current) drug therapy
CPT/HCPCS: 36415; 80048; 80053; 80069; 81001; 82533; 83735; 83930; 83935; 84100; 84300; 84443; 85014; 85018; 85027; 87077; 87086; 87088; 87184; 87186; 92507; 92523; 97110; 97112; 97116; 97129; 97130; 97162; 97166; 97530; 97535; 97802

== ENCOUNTER 2024-12-03 15:44 | Inpatient (IN) | payer MEDICARE, OTHER, SELFPAY ==
[2024-12-03] VITALS (8 sets, daily range): BP systolic 144–182; BP diastolic 49–82; PULSE 60–79; RESP 15–19; TEMP 36.6–36.7; O2SAT 94–99; BMI 25.3; BMI 23.9
--- NOTE | 2024-12-03 18:17 | EX.ED.DYSGE1 ---
HPI History of Present Illness Chief Complaint: Weakness Narrative Narrative: Patient is a 79-year-old female past medical history of CVA, grade 2 diastolic dysfunction, mitral stenosis, pulmonary hypertension, hypercholesteremia, hypertension who presented to the emergency department chief complaint of generalized weakness. According to the daughter at bedside who provided most of history present illness she states that on she was released from rehab and states that for the last several days she has been extremely weak and shaky. States that periodically her legs are giving out on her. She states that her sodium have been low and they have been restricting her to 40 mL of water daily which they have been hearing to and she states in fact there is a chance that she is actually not drinking enough. They deny other complaints. Daughter at bedside states that she has been acting her normal self [facility] Medical History Presbycusis History of rheumatic fever as a child Grade II diastolic dysfunction Ischemic cerebrovascular accident (CVA) Intracranial epidural hematoma Cerebrovascular disease Mitral stenosis Pulmonary hypertension Stroke/cerebrovascular accident Scalp lesion Hemorrhoids High cholesterol HTN (hypertension) Home Medications ?Medication ?Instructions ?Recorded ?Last Taken ?Type multivitamin 1 tablet PO DAILY supplement 08/12/20 12/24/22 10:00 History cholecalciferol (vitamin D3) 125 125 mcg PO DAILY supplement 08/14/20 12/24/22 08:00 History mcg (5,000 unit) capsule cyanocobalamin (vitamin B-12) 500 1,000 mcg PO DAILY supplement 08/14/20 12/24/22 10:00 History mcg chewable tablet zinc sulfate 50 mg zinc (220 mg) 220 mg PO DAILY vitamin 12/06/22 12/24/22 10:00 History capsule (Orazinc) amiodarone 200 mg tablet 200 mg PO DAILY heart #90 TABLETS 12/12/23 11/12/24 08:30 Rx atorvastatin 10 mg tablet 10 mg PO QHS for cholesterol #90 12/12/23 11/11/24 21:08 Rx TABLETS apixaban 2.5 mg tablet 2.5 mg PO BID called to [facility] 08/13/24 09/27/24 Rx [facility] tabs acetaminophen 325 mg capsule 325 mg PO Q4H PRN pain 11/12/24 11/12/24 13:15 History hydralazine 50 mg tablet 50 mg PO TID #90 tabs 11/27/24 Unknown Rx levetiracetam 750 mg tablet 750 mg PO BID #60 tabs 11/27/24 Unknown Rx sodium chloride 1,000 mg soluble 1,000 mg PO TIDCM #90 tabs 11/27/24 Unknown Rx tablet Allergy/AdvReac Type Severity Reaction Status Date / Time No Known Allergies Allergy Verified 12/03/24 15:46 Family History Father CVA (cerebral vascular accident) Heart disease Mother Diabetes Surgical History H/O craniotomy Status post hemorrhoidectomy (~08/19/20) S/P carpal tunnel release S/P bilateral breast reduction S/P hysterectomy Social History household members: children and other details: BRADY Upton lives with her. housing: house current occupational status: retired Smoking Status: Never smoker alcohol intake: never ROS ROS ED ROS Narrative Constitutional: Denies any fevers, chills, headaches Eyes: Denies double vision blurry vision changes vision Cardiovascular: Denies chest pain Respiratory: No shortness of breath, coughing Abdomen: Denies abdominal pain nausea vomit diarrhea : Denies any urinary symptoms Neurological: Complains of generalized weakness denies any numbness or tingling Musculoskeletal: Denies back pain Skin: Denies any rashes or lesions EXAM Physical Exam Narrative Exam Narrative: General: Patient lying in bed rest comfortably did not appear to be in acute distress Head: Atraumatic, normocephalic Eyes: PERRL bilaterally, EOMI blood, no conjunctival injection noted Neck: Soft, supple, trachea midline Cardiovascular: Regular rate and rhythm no murmurs gallops rubs noted Respiratory: Clear to auscultation bilaterally no rales rhonchi or wheezes noted Abdomen: Soft, nondistended, no tenderness palpation Extremities: +4/5 strength noted in the bilateral upper and lower extremities, radial pulses +2/4 in the bilateral extremities, no pedal edema on exam Neurological: Patient follow commands knew that she was at [facility]. NIH of 0 GCS 15 Skin: Warm, dry, intact no rashes or lesions noted Const Vital Signs: 12/03/24 15:46 12/03/24 17:28 12/03/24 17:33 Temperature 98.1 F Temperature Source Oral Pulse Rate 79 72 Respiratory Rate 16 18 Respiratory Effort Normal Non-Labored Respiratory Pattern Normal Blood Pressure 159/49 H 144/82 H Blood Pressure Mean 85 102 Pulse Ox 98 99 Oxygen Delivery Method Room Air Room Air 12/03/24 18:00 12/03/24 19:04 12/03/24 20:00 Temperature Temperature Source Pulse Rate 73 72 71 Respiratory Rate 19 H 18 18 Respiratory Effort Respiratory Pattern Blood Pressure 176/52 H 182/73 H 168/60 H Blood Pressure Mean 93 109 96 Pulse Ox 99 98 94 Oxygen Delivery Method Room Air Room Air 12/03/24 21:00 Temperature Temperature Source Pulse Rate 67 Respiratory Rate 18 Respiratory Effort Respiratory Pattern Blood Pressure 164/60 H Blood Pressure Mean 94 Pulse Ox 98 Oxygen Delivery Method Room Air MDM MDM MDM Narrative Medical decision making narrative: Patient is a 79-year-old female who presents to the emergency department chief complaint of generalized weakness. On the differential diagnose includes Melamin to UTI, pneumonia, electrolyte abnormality, cardiac arrhythmia. Once workup is obtained reviewed she will be reevaluated. Patient be given IV fluids for hydration. Patient CBC reviewed showed no evidence of cytosis white blood count 7.3, hemoglobin 10, plate count was 197. Patient sodium was 133, potassium normal 3.7, creatinine was 0.67. Patient's AST and ALT were 104 and 282 respectively, lipase was 68. Patient's urinalysis showed positive nitrites 0-5 white cells with 3+ bacteria this was sent for culture she was given a gram of Rocephin here in the emergency department. We attempted to get the patient up out of bed and she was extremely weak and could not do so therefore will discuss case with hospitalist for admission for placement into rehab. Daughter and patient are agreeable with this plan. Discussed case with hospitalist Dr. Shields who accept patient for admission. Patient and family ember at bedside was notified of this plan they are agreeable all question concerns answered. Lab Data Labs: Laboratory Results - last 24 hr 12/03/24 12/03/24 18:53 20:10 WBC 7.3 RBC 3.04 L Hgb 10.0 L Hct 28.2 L MCV 92.8 MCH 32.9 H MCHC 35.5 RDW Std Deviation 43.1 RDW Coeff of Marga 12.6 Plt Count 197 MPV 10.2 Immature Gran % (Auto) 0.700 Neut % (Auto) 80.3 H Lymph % (Auto) 9.0 L [place] % (Auto) 9.6 Eos % (Auto) 0.1 Baso % (Auto) 0.3 Absolute Neuts (auto) 5.9 Absolute Lymphs (auto) 0.66 L Nucleated RBC % 0 Sodium 133 Potassium 3.7 Chloride 100 Carbon Dioxide 22.8 Anion Gap 10 BUN 15 Creatinine 0.67 L Estim Creat Clear Calc 39.62 L Est GFR (MDRD) Non-Af 88 BUN/Creatinine Ratio 22.8 H Glucose 106 H Calcium 8.8 Total Bilirubin 0.65 AST 104 H ALT 282 H Alkaline Phosphatase 104 Total Protein 5.8 L Albumin 3.7 Globulin 2.1 L Albumin/Globulin Ratio 1.8 Lipase 68 Urine Color Straw Urine Clarity Clear Urine pH 7.0 Ur Specific [place] 1.010 Urine Protein 15 H Urine Glucose (UA) Normal Urine Ketones 5 H Urine Occult Blood Negative Urine Nitrite Positive H Urine Bilirubin Negative Urine Urobilinogen Normal Ur Leukocyte Esterase Negative Urine RBC 0-5 SEEN Urine WBC 0-5 SEEN Ur Squamous Epith Cells 0 SEEN Urine Bacteria 3+ Urine Mucus 0 SEEN Discharge Plan Triage Chief Complaint: Weakness ED Provider: Hayden Sadler Dx/Rx/DC Orders Clinical Impression: Generalized weakness, Urinary tract infection Prescriptions: No Action multivitamin Tablet 1 tablet PO DAILY cyanocobalamin (vitamin B-12) 500 MCG tablet,chewable 1,000 mcg PO DAILY cholecalciferol (vitamin D3) 125 MCG capsule 125 mcg PO DAILY zinc sulfate [Orazinc] 50 mg zinc (220 mg) capsule 220 mg PO DAILY acetaminophen 325 mg capsule 325 mg PO Q4H PRN (Reason: pain) hydralazine 50 mg Tablet 50 mg PO TID Qty: 90 0RF levetiracetam 750 mg Tablet 750 mg PO BID Qty: 60 0RF sodium chloride 1,000 mg Tablet,Soluble 1,000 mg PO TIDCM Qty: 90 0RF atorvastatin 10 mg tablet 10 mg PO QHS Qty: 90 3RF amiodarone 200 mg tablet 200 mg PO DAILY Qty: 90 3RF apixaban 2.5 mg tablet 2.5 mg PO BID Qty: 180 4RF Primary Care Provider: Monika Venegas Referrals: Monika Venegas MD [Primary Care Provider] - Print Language: Tamazight Disposition Disposition: Acute Care Hospital [facility]
[2024-12-03] MEDS: 0.9% Normal Saline (1000mL) 1,000 ML 999 ML IV (18:50)
[2024-12-03 19:14] LABS: Hematocrit 28.2 % (37-47); Hemoglobin 10.0 g/dL (12.0-15.0); Immature Granulocytes Count 0.050 X10^3/uL (0.0-0.0); Mean Corp Hgb Conc 35.5 g/dL (32-36); Mean Corpuscular Volume 92.8 fL (81-99); Mean Platelet Vol. 10.2 fl (6.2-12.0); NRBC Flagged by Analyzer 0 % (0-5); Platelet Count 197 K/mm3 (150-450); RBC Distribution Width CV 12.6 % (11.6-14.6); RBC Distribution Width SD 43.1 fl (35.1-43.9); Red Blood Count 3.04 M/mm3 (4.2-5.4); White Blood Count 7.3 K/mm3 (4.4-11.0)
[2024-12-03 20:08] LABS: AST(SGOT) 104 U/L (<=31); Alanine Aminotransfer ALT/SGPT 282 U/L (<=34); Albumin, Serum 3.7 g/dL (3.4-4.8); Alkaline Phosphatase 104 U/L (35-104); Anion Gap 10 (5-15); BUN 15 mg/dL (4-19); BUN/Creat Ratio 22.8 RATIO (10-20); Calcium,Total 8.8 mg/dL (7.6-11.0); Carbon Dioxide 22.8 mmol/L (21.0-32.0); Chloride 100 mmol/L (98-108); Estimated Creatinine Clearance 39.62 ml/min (50-250); Globulin 2.1 g/dL (2.2-4.2); Glucose 106 mg/dL (70-99); Lipase 68 U/L (13-75); Potassium 3.7 mmol/L (3.3-5.1)
[2024-12-03 20:18] LABS: Mucous, Urine 0 SEEN /hpf (<or=2+); Squamous Epithelial Cells - UA 0 SEEN /hpf (5-10)
[2024-12-03 20:20] LABS: Color, Urine Straw (Yellow); Glucose, Dipstick Normal (Normal); Ketone-Dipstick 5 mg/dl (Negative); Leukocyte Esterase-Dipstick Negative /ul (Negative); Nitrite-Dipstick Positive (Negative); Occult Blood-Urine Negative /ul (Negative); Protein-Dipstick 15 mg/dl (Negative); Specific Gravity, Urine 1.010 (1.002-1.030); Urine Bilirubin Dipstick Negative (Negative)
[2024-12-03 20:27] LABS: Red Blood Cells-Urine 0-5 SEEN /hpf (0-5)
--- NOTE | 2024-12-03 22:24 | PCM.HP.STD ---
[facility] - General General Date of Admission: 12/03/24 Date of Service: 12/03/24 Chief Complaint: Generalized Weakness. HPI Narrative FREDO MCGUIRE, is a 79 F with a past medical history of essential hypertension; on hydralazine 3 times daily, hyperlipidemia; on atorvastatin, history of paroxysmal atrial fibrillation; on amiodarone and apixaban, history of large meningioma; s/p resection at [facility] by Dr. Kincaid in December 2022, history of CVA, history of intracranial epidural hematoma; s/p craniotomy (2022), history of suspected seizures; on levetiracetam twice daily, history of hyponatremia; on sodium chloride 1 g p.o. 3 times daily, recent history of UTI history of pulmonary hypertension, history of rheumatic mitral stenosis, history of grade 2 diastolic dysfunction, remote history of rheumatic fever as a child, OA and recent admission here to the rehabilitation unit under the care of Dr. Arias from November 13, 2024 to November 27, 2024 who presents to [facility] after initially presenting to [facility] ER on November 07, 2024 complaining of slurred speech over her baseline and difficulty ambulating with noncontrasted CT scan of the brain showing moderate-sized mixed density Left subdural fluid collection concerning for bleeding with patient then subsequently transferred to [facility]. She was treated with Kcentra in the ER to reverse her apixaban with MRI of the brain and MRA of the brain and neck showing no evidence of new CVA. Neurology evaluated the patient and felt her history was highly suggestive of seizures although no epileptic discharges were captured on EEG. She had continuous left hemispheric polymorphic theta slow-wave activity indicative of a structural lesion over the left hemisphere in this area where she had a craniotomy in 2022 causing her to be started on levetiracetam 1 g twice daily. Neurosurgery was consulted for the extradural fluid collection and recommended holding anticoagulation for at least 2 weeks with suspected subacute on chronic extradural fluid collection related to a fall she had approximately 1 month prior to presenting to the emergency department. Her carvedilol, doxazosin, hydrochlorothiazide and spironolactone were held but amiodarone was continued. She was transferred back to acute inpatient rehab on November 12, 2024 for 3 hours of therapy daily in an effort to restore function/independence to her previous baseline. Unfortunately, since returning home the patient has become progressively more generally weak for the past several days and has been shaky with her legs giving out on her periodically. She states that her sodium levels have been recently low so they have been fluid restricting her to 40 mL of water daily with patient informing the ER provider there was a chance that she may not actually be drinking enough. She denies other complaints. Her daughter was present at the bedside and stating that she had otherwise been acting normally. There was no report of fever, chills, headaches, changes in vision, chest pain, palpitations, heart racing, shortness of breath, cough, abdominal pain, nausea, vomiting, diarrhea, constipation, dysuria, hematuria, back pain or rash. In the ER she was noted to have unremarkable laboratory studies including a normal serum sodium of 133 mmol/L present on admission with a normal glucose of 106 mg/dL and a UA positive for evidence of colonization but not acute infection. She was then diagnosed with Generalized Weakness with Ambulatory Dysfunction in the setting of recent suspected seizure activity due to moderate-sized mixed density Left subdural fluid collection recently evaluated at [facility]. She was then admitted to the general medical floor with telemetric monitoring under observation status for stay that is expected to be less than 2 midnights. [facility] Medical History (Updated 12/04/24 @ 01:[address] Darnell Gonzalez, ) Ischemic cerebrovascular accident (CVA) Presbycusis History of rheumatic fever as a child Grade II diastolic dysfunction Intracranial epidural hematoma Cerebrovascular disease Mitral stenosis Pulmonary hypertension Stroke/cerebrovascular accident Scalp lesion Hemorrhoids High cholesterol HTN (hypertension) Home Medications ?Medication ?Instructions ?Recorded ?Last Taken ?Type multivitamin 1 tablet PO DAILY supplement 08/12/20 12/24/22 10:00 History cholecalciferol (vitamin D3) 125 125 mcg PO DAILY supplement 08/14/20 12/24/22 08:00 History mcg (5,000 unit) capsule cyanocobalamin (vitamin B-12) 500 1,000 mcg PO DAILY supplement 08/14/20 12/24/22 10:00 History mcg chewable tablet amiodarone 200 mg tablet 200 mg PO DAILY heart #90 TABLETS 12/12/23 11/12/24 08:30 Rx atorvastatin 10 mg tablet 10 mg PO QHS for cholesterol #90 12/12/23 11/11/24 21:08 Rx [facility] apixaban 2.5 mg tablet 2.5 mg PO BID called to [facility] 08/13/24 09/27/24 Rx [facility] tabs acetaminophen 325 mg capsule 325 mg PO Q4H PRN pain 11/12/24 11/12/24 13:15 History hydralazine 50 mg tablet 50 mg PO TID bp #90 tabs 11/27/24 Unknown Rx levetiracetam 750 mg tablet 750 mg PO BID [facility] #60 tabs 11/27/24 Unknown Rx sodium chloride 1,000 mg soluble 1,000 mg PO TIDCM low sodium #90 11/27/24 Unknown Rx tablet tabs Allergy/AdvReac Type Severity Reaction Status Date / Time No Known Allergies Allergy Verified 12/03/24 15:46 Family History Father CVA (cerebral vascular accident) Heart disease Mother Diabetes Surgical History H/O craniotomy Status post hemorrhoidectomy (~08/19/20) S/P carpal tunnel release S/P bilateral breast reduction S/P hysterectomy Social History household members: children and other details: BRADY Upton lives with her. housing: house current occupational status: retired Smoking Status: Never smoker alcohol intake: never ROS ROS Narrative Review of Systems: Constitutional: Patient admits to generalized weakness but she denies fever or chills. Eyes: Patient denies changes in vision or discharge from eyes. ENT: Patient denies runny nose, sore throat or ear pain. Resp: Patient denies shortness of breath or cough. GI: Patient denies abdominal pain, nausea, vomiting, diarrhea or constipation. : Patient denies dysuria or hematuria. MSK: Patient admits to generalized weakness with ambulatory dysfunction and shakiness in her legs occasionally giving out as per HPI. Skin: Patient denies rash, abscess, wounds or jaundice. Psych: Patient denies symptoms of uncontrolled depression or anxiety. Neuro: Patient denies headache, paresthesias or focal neurologic deficits. Allergy: Patient denies lip swelling, tongue swelling or urticaria. Hematology: Patient admits to easy bleeding and easy bruising on apixaban. Endocrinology: Patient denies polyuria, polydipsia, polyphagia or heat/cold intolerance. 14 point ROS otherwise negative except for positives noted above in HPI. Vital Signs Vital Signs Vital Signs: 12/03/24 15:46 12/03/24 17:28 12/03/24 17:33 Temperature 98.1 F Temperature Source Oral Pulse Rate 79 72 Respiratory Rate 16 18 Respiratory Effort Normal Non-Labored Respiratory Pattern Normal Blood Pressure 159/49 H 144/82 H Blood Pressure Mean 85 102 Pulse Ox 98 99 Oxygen Delivery Method Room Air Room Air 12/03/24 18:00 12/03/24 19:04 12/03/24 20:00 Temperature Temperature Source Pulse Rate 73 72 71 Respiratory Rate 19 H 18 18 Respiratory Effort Respiratory Pattern Blood Pressure 176/52 H 182/73 H 168/60 H Blood Pressure Mean 93 109 96 Pulse Ox 99 98 94 Oxygen Delivery Method Room Air Room Air 12/03/24 21:00 Temperature Temperature Source Pulse Rate 67 Respiratory Rate 18 Respiratory Effort Respiratory Pattern Blood Pressure 164/60 H Blood Pressure Mean 94 Pulse Ox 98 Oxygen Delivery Method Room Air Weight Weight: 109 lb 2.061 oz Body Mass Index (BMI) 25.3 Physical Exam Const alert, oriented x3, no apparent distress and average body habitus General Appearance: cooperative HEENT normocephalic, head/scalp atraumatic, hearing grossly normal bilaterally and moist oral mucous membranes Eyes PERRL, EOMs intact bilaterally and conjunctivae normal Neck no lymphadenopathy and supple Resp normal respiratory effort, no retractions, no use of accessory muscles and clear to auscultation bilaterally Cardio regular rate and regular rhythm GI normal to inspection, nondistended, normoactive bowel sounds, soft to palpation, non-tender and non-distended Extremity normal to inspection, full ROM and no clubbing, cyanosis or edema Skin Skin Narrative: Patient has evidence of rash, abscess, wounds or jaundice. Neuro oriented x3, CN's II-XII intact bilaterally, moves all extremities and no focal motor deficits Sensorium / Orientation: awake, alert, oriented to person, oriented to place and oriented to time Speech: speech normal Psych affect normal Results Medical Records Data Attestation: I reviewed the patient's medical records Lab / Micro Data Attestation: I reviewed the patient's lab results. 12/03/24 18:53 12/03/24 18:53 Labs: Laboratory Results - last 24 hr 12/03/24 18:53: WBC 7.3, RBC 3.04 L, Hgb 10.0 L, Hct 28.2 L, MCV 92.8, MCH 32.9 H, MCHC 35.5, RDW Std Deviation 43.1, RDW Coeff of Marga 12.6, Plt Count 197, MPV 10.2, Immature Gran % (Auto) 0.700, Neut % (Auto) 80.3 H, Lymph % (Auto) 9.0 L, [place] % (Auto) 9.6, Eos % (Auto) 0.1, Baso % (Auto) 0.3, Absolute Neuts (auto) 5.9, Absolute Lymphs (auto) 0.66 L, Nucleated RBC % 0, Sodium 133, Potassium 3.7, Chloride 100, Carbon Dioxide 22.8, Anion Gap 10, BUN 15, Creatinine 0.67 L, Estim Creat Clear Calc 39.62 L, Est GFR (MDRD) Non-Af 88, BUN/Creatinine Ratio 22.8 H, Glucose 106 H, Calcium 8.8, Total Bilirubin 0.65, AST 104 H, ALT 282 H, Alkaline Phosphatase 104, Total Protein 5.8 L, Albumin 3.7, Globulin 2.1 L, Albumin/Globulin Ratio 1.8, Lipase 68 12/03/24 20:10: Urine Color Straw, Urine Clarity Clear, Urine pH 7.0, Ur Specific [place] 1.010, Urine Protein 15 H, Urine Glucose (UA) Normal, Urine Ketones 5 H, Urine Occult Blood Negative, Urine Nitrite Positive H, Urine Bilirubin Negative, Urine Urobilinogen Normal, Ur Leukocyte Esterase Negative, Urine RBC 0-5 SEEN, Urine WBC 0-5 SEEN, Ur Squamous Epith Cells 0 SEEN, Urine Bacteria 3+, Urine Mucus 0 SEEN Assessment & Plan Assessment/Plan (1) Generalized weakness: (2) Ambulatory dysfunction: (3) History of subdural hematoma: (4) Intracranial epidural hematoma: (5) Ischemic cerebrovascular accident (CVA): (6) Seizure disorder: (7) Anticoagulant long-term use: PLAN: Plan 1. Generalized Weakness with Ambulatory Dysfunction - Admit to general medical floor under observation status. PT/OT and Case Management consult and treat on rounds in a.m. further recommendations regarding possible ECF placement with help appreciated in advance. Give acetaminophen prn for pain or fever. 2. Recent admission here to the rehabilitation unit under the care of Dr. Arias from November 13, 2024 to November 27, 2024 who presents to [facility] after initially presenting to [facility] ER on November 07, 2024 complaining of slurred speech over her baseline and difficulty ambulating with noncontrasted CT scan of the brain showing moderate-sized mixed density Left subdural fluid collection concerning for bleeding with patient then subsequently transferred to [facility]. She was treated with Kcentra in the ER to reverse her apixaban with MRI of the brain and MRA of the brain and neck showing no evidence of new CVA. Neurology evaluated the patient and felt her history was highly suggestive of seizures although no epileptic discharges were captured on EEG. She had continuous Left hemispheric polymorphic theta slow-wave activity indicative of a structural lesion over the Left hemisphere in this area where she had a craniotomy in 2022 causing her to be started on levetiracetam 1 g twice daily. Neurosurgery was consulted for the extradural fluid collection and recommended holding anticoagulation for at least 2 weeks with suspected subacute on chronic extradural fluid collection related to a fall she had approximately 1 month prior to presenting to the emergency department complicating #1 - Noted with patient likely in need of ECF for subacute rehabilitation. 3. History of large meningioma; s/p resection at [facility] by Dr. Kincaid in December 2022 adding to the medical complexity of #1 & #2 - Noted. 4. History of intracranial epidural hematoma; s/p craniotomy (2022) - Noted. 5. History of CVA - Noted. 6. History of paroxysmal atrial fibrillation; on amiodarone and apixaban adding to the burden of disease outlined from #1 - #4 - Maintain current therapy. 7. Essential hypertension; on hydralazine 3 times daily - Maintain hydralazine as previous. 8. Hyperlipidemia; on atorvastatin - Hold statin in case of myotoxicity contributing to #1. 9. History of hyponatremia; on sodium chloride 1 g p.o. 3 times daily - Stable with serum sodium of 133 mmol/L present on admission. 10. Recent history of UTI - Noted with UA positive for colonization and not acute infection at time of admission. 11. History of pulmonary hypertension - Noted. 12. History of rheumatic mitral stenosis - Noted. 13. History of grade 2 diastolic dysfunction - Stable. 14. Remote history of rheumatic fever as a child - Noted. 15. OA - We hattie give acetaminophen prn as outlined in #1. 16. DVT prophylaxis - Patient already on apixaban for #6 which will be continued. Total time: Approximately (but not less than) 70 minutes. Charges/Coding Visit Charges OBSV E&M: 26409 Observ/hosp same date L2
[2024-12-03] MEDS: 0.9% Normal Saline (1000mL) 1,000 ML 50 ML IV (23:24)
[2024-12-03] MEDS: 0.9% Saline Lock 10 ML Syringe IV (23:24)
[2024-12-04] VITALS (15 sets, daily range): BP systolic 135–166; BP diastolic 38–62; PULSE 60–74; RESP 16–18; TEMP 36.5–37.2; O2SAT 93–98; BMI 24.0
--- OUTSIDE RECORDS SUMMARY | 2024-12-04 00:20 | XMS RPT_ITS | CCD ---
Author Organization [facility] Care Team Providers Care Spinner Tender Name Role Phone Dr. Monika Venegas Primary [...] Provider Dr. Howard Rivera Other Provider Roof AGRICULTURE MANAGER, AGRICULTURE MANAGER-C Jagdish Basilio Other Provider Beasley AGRICULTURE MANAGER, AGRICULTURE MANAGER-C Kourtney Other Provider MAGALY Palomo Other Provider Dr. Alix Hudson Other Provider Dr. Alix Hudson Attending Provider MAGALY Palomo Attending Provider Dr. Monika Venegas Primary Care Provider Dr. Monika Venegas Referring Provider MAGALY Palomo Attending Provider Dr. Monika Venegas MD Primary Care Provider Dr. Nati Hudson DO Attending Provider Dr. Nati Hudson DO Referring Provider Dr. Hayden Sadler DO Emergency Provider Monika Venegas MD Primary Care Provider Dr. Monika Venegas MD Primary Care Provider Dr. Nati Hudson DO Attending Provider Dr. Hayden Sadler DO Attending Provider Dr. Mario Anand MDo Emergency Provider JOLLIFF, MONIKA S Primary Care Unavailable YOBANIANGEL B Attending Unavailable CONSULT, SURGERY - NEURO Consulting Unavail able DALLAS ANAND Referring Unavailable MARKO, HIBA R Admitting Unavailable BUENO, ANDREW D Attending Unavailable SELF, [...] KRISTINE A Referring Unavailable JOLLIFF, MONIKA S Referring Unavailable BUENO, ANDREW D Attending Unavailable JOLLIFF, MONIKA S Primary Care Unavailable BUENO, ANDREW D Attending Unavailable BUENO, ANDREW D Referring Unavailable JOLLIFF, MONIKA S Primary Care Unavailable BUENO, ADNREW D Attending Unavailable BUENO, ANDREW D Referring Unavailable JOLLIFF, MONIKA S Primary Care Unavailable Jolliff , Dr. Monika Smith Primary Care Provider Andrés DEL VALLE, Dr. Haynes Attending Provider [phone] Hugo TREJO, Dr. Jo-Ann Carias Admit Provider Hugo TREJO, Dr. Jo-Ann Carias Attending Provide r Hugo TREJO, Dr. Jo-Ann Carias Referring Provide r Xochitl DEL VALLE, Dr. Eldridge Other Provider Jude DEL VALLE, Dr. Saha Other Provider Eris DEL VALLE, Dr. Farah Other Provider Dr. Mattie Haynes DO Other Provider Keyur DEL VALLE, Dr. Harrison Other Provider Ainsley DEL VALLE, Dr. Elaine Other Provider Mark DEL VALLE, Dr. Wei Other Provider Rochelle DEL VALLE, Dr. Sotelo Other Provider Celia DEL VALLE, Dr. Arreaga Other Provider Sylvia Laughlin Other Provider Sementi DO, Dr. Jo-Ann Carias Other Provider Sementi, Jo-Ann Carias Referring Unavaila ble Sementi, Jo-Ann Carias Consulting Unavaila ble Sementi, Jo-Ann Carias Attending Unavaila ble Sementi, Jo-Ann Carias Admitting Unavaila ble Jolliff, Monika S Primary Care Unavailable Jolliff, Monika S Primary Care Unavailable TristanPopeyeNati Attending Unavailable Jolliff, Monika S Primary Care Unavailable Nati Hudson Attending Unavailable Tristan, Nati Referring Unavailable Jolliff, Monika S Referring Unavailable Jolliff, Monika S Primary Care Unavailable Jolliff, Monika S Attending Unavailable Jolliff, Monika S Primary Care Unavailable Hayden Sadler Attending Unavailable Jolliff, Monika S Primary Care Unavailable [place] Anand Attending Unavailable Jolliff, Monika S Referring Unavailable Jolliff, Monika S Primary Care Unavailable Jolliff, Monika S Attending Unavailable Jolliff, Monika S Primary Care Unavailable Sementi, Jo-Ann Carias Referring Unavaila ble Sementi, Jo-Ann Carias Attending Unavaila ble Sementi, Jo-Ann Carias Admitting Unavaila ble Baknikis, Aziz Consulting Unavailable Jude, Yifan Consulting Unavailable Eris, Jayaprakas Consulting Unavailable Zidehsarai, Mattie Consulting Unavailable Tanphaichitr, Natthavat Consulting Unavaila ble Voroshilova, Argentina Consulting Unavailable Mark, Preti Consulting Unavailable Deshawn Byrdpesh Consulting Unavailable Gibson Yang Consulting Unavailable Sylvia Cabral Consulting Unavailable Jolliff, Monika S Primary Care Unavailable Provider, Ed Physician Attending Unavailab le Jolliff, Monika S Attending Unavailable Jolliff, Monika [...] Care Unavailable Lolly Palomo Attending Unavail able Bakhous, Aziz Consulting Unavailable Jude, Yifan Consulting Unavailable Eris, Jayaprakas Consulting Unavailable Mattie Haynes Consulting Unavailable TanChristy menezes Consulting Unavaila Argentina Connell Consulting Unavailable Sanjuana Flores Consulting Unavailable Deepak Byrd Consulting Unavailable Gibson Yang Consulting Unavailable Sylvia Cabral Consulting Unavailable Gonzalez DO, Dr. Patrick Admit Provider Unavail able Gonzalez DO, Dr. Patrick Attending Provider Unav ailable Gonzalez DO, Dr. Patrick Referring Provider Unav ailable Medications Current Medications Medication Drug Class(es) Dates Sig (Normalized) Sig (Original) acetaminophen 325 mg oral capsule (20 sources) Start: 11-12-2024 take 1 capsule by mouth every four hours as needed for pain Acetaminophen 325 mg capsule Active 325 mg PO Q4H as needed for pain November 12, 2024 12:00am Start: 11-08-2024 End: 11-12-2024 take 1 tablet by mouth every six hours as needed 650 mg, Oral, EVERY 6 HOURS NEEDED, Starting on Donita 11/08/24 at 1551, Until Tue11/12/24 at 1804, Mild Pain, Oral temp > 100.4 F, Headaches, Alternate with ibuprofen if ordered, Maximum dose of acetaminophen is 4000 mg from all sources in 24 hours or 2000 mg from all sources in patients with cirrhosis in 24 hours. Start: 09-27-2024 End: 11-13-2024 Acetaminophen (8 Hour Pain Reliever) 650 mg tablet extended release Discontinued 1300 mg PO Q8H as needed for pain September 27, 2024 12:00am November 13, 2024 8:58am Start: 12-06-2022 take 1 tablet nasoga stric [...] tablet by mouth every 12 hours. 11/12/2024 Start: 08-13-2024 take 1 tablet by melo th twice daily Apixaban 2.5 mg tablet Active 2.5 mg PO TWICE A DAY 180 4 August 13, 2024 12:00am called to [facility] Start: 12-29-2022 End: 11-12-2024 take 1 tablet by mouth twice daily Apixaban 5 mg tablet Discontinued 5 mg PO TWICE A DAY 180 4 July 24, 2024 4:26pm August 13, 2024 3:51pm cefdinir 300 mg oral capsule (5 sources) Cephalosporin Antibacterial Start: 11-12-2024 End: 11-15-2024 take 1 capsule by mouth every twelve hours Cefdinir (OMNICEF) 300 MG capsule Take 1 capsule by mouth every 12 hours for 3 days. 6 capsule 11/12/2024 11/15/2024 Active Start: 11-12-2024 End: 11-27-2024 take 1 capsule by mouth twice daily Cefdinir 300 mg capsule Discontinued 300 mg PO TWICE A DAY November 12, 2024 12:00am November 27, 2024 4:42pm UTI cholecalciferol 0.125 mg oral capsule (20 sources) Vitamin D Start: 08-14-2020 End: 11-17-2022 take 1 capsule by mouth once daily Cholecalciferol (Vitamin D3) 125 MCG capsule Active 125 ug PO DAILY August 14, 2020 1:00am supplement hydrALAZINE hydrochloride 50 mg oral tablet (2 sources) Arteriolar Vasodilator Start: 11-27-2024 take 1 tablet by mouth three times daily Hydralazine 50 mg Tablet Active 50 mg PO THREE TIMES A DAY 90 0 November 27, 2024 12:00am bp levETIRAcetam 750 mg oral tablet (11 sources) Start: 11-27-2024 take 1 tablet by mouth twice daily Levetiracetam 750 mg Tablet Active 750 mg PO TWICE A DAY 60 0 November 27, 2024 12:00am sezuire Start: 11-12-2024 take 1 tablet by melo th every twelve hours levETIRAcetam 1000 MG tablet Take 1 tablet by mouth every 12 hours. 11/12/2024 Active Start: 11-12-2024 End: 11-27-2024 take 1 tablet by mouth twice daily Levetiracetam (Kepp ra) 1,000 mg tablet Discontinued 1000 mg PO TWICE A DAY November 12, 2024 12:00am November 27, 2024 4:42pm Seizures Start: 11-10-2024 End: 11-12-2024 take 1000 mg [...] a rate not to exceed 500 mg/min. Multivitamin preparation (10 sources) Start: 08-12-2020 take 1 tablet by mouth once daily Multivitamin Active 1 TABLET PO DAILY August 12, 2020 12:00am Start: 08-12-2020 take 1 tablet by melo once daily Multivitamin Active 1 TABLET PO DAILY August 12, 2020 1:00am Multivitamin tablet (4 sources) Start: 08-12-2020 Multivitamin t ablet Active 1 {tbl} PO DAILY August 12, 2020 1:00am supplement Start: 08-12-2020 Multivitamin t ablet Active 1 {tbl} PO DAILY August 12, 2020 1:00am sodium chloride 1000 mg oral tablet (15 sources) Start: 11-27-2024 take 1 tablet by mouth three times daily at mealtime Sodium Chloride 1,000 mg Tablet,Soluble Active 1000 mg PO 3 TIMES DAILY WITH MEALS 90 0 November 27, 2024 12:00am low sodium Start: 11-08-2024 End: 11-12-2024 Intravenous, at 20 mL/hr, NEEDED, Starting on Donita 11/08/24 at 1549, Until 11/12/24 at 1804, Carrier Fluid - See Admin. [...] Intravenous, ONCE NEEDED, 1 dose, Starting on Donita 08/18/23 at 1352, Until Tue08/18/23 at 1353, Flush, MR Procedure Start: 12-06-2022 End: 12-29-2022 take 2 tablets by mouth twice daily Sodium Chloride 1,000 mg tablet,soluble Discontinued 2000 mg PO TWICE A DAY December 06, 2022 12:00am December 29, 2022 5:38pm vitamin Start: 12-06-2022 End: 12-29-2022 take 2000 mg by mouth twice daily Sodium Chloride Discontinued 2000 MG PO TWICE A DAY December 05, 2022 11:00pm December 29, 2022 4:38pm Start: 10-09-2022 End: 10-09-2022 Sodium chloride (PF) 0.9 % i njection 1-100 mL vitamin b12 0.5 mg chewable tablet (14 sources) Vitamin B12 Start: 08-14-2020 take 2 tablets by mouth once daily Cyanocobalamin (Vitamin B-12) 500 MCG tablet,chewable Active 1000 ug PO DAILY August 14, 2020 1:00am supplement Start: 08-14-2020 take 1000 ug by mout h once daily Cyanocobalamin (Vitamin B-12) Active 1000 MCG PO DAILY August 14, 2020 12:00am Zinc (5 sources) Zinc 50 MG table t Take by mouth. 0 Active zinc sulfate 220 mg oral cap dhaval (7 sources) Start: 12-06-2022 Zinc Sulfate ( Orazinc) 50 mg zinc (220 mg) capsule Active 220 mg PO DAILY December 06, 2022 12:00am vitamin Completed/Discontinued Medications Medication Drug Class(es) Dates Sig (Normalized) Sig (Original) acetaminophen 325 mg / oxyCODONE hydrochloride 5 mg oral tablet (14 sources) Opioid Agonist Start: 08-19-2020 End: 08-24-2020 Oxycodone-Acetamino phen 1 EACH tablet Discontinued 1 - 2 {tbl} PO EVERY 6 HOURS NEEDED as needed for Pain Score 4-10/10 40 5 0 August 19, 2020 August 23, 2020 12:00am August 24, 2020 12:03am Hemorrhoids Unspecified hemorrhoids Start: 08-19-2020 End: 08-24-2020 take 1 tablet by mouth every six hours as needed Oxycodone-Acetaminophen Discontinued 1 - 2 TABLET PO EVERY 6 HOURS NEEDED 40 5 August 19, 2020 August 23, 2020 11:03pm amiodarone hydrochloride 200 mg oral tablet (20 sources) Antiarrhythmic Start: 12-24-2022 End: 11-12-2024 take 1 tablet by mouth once daily Amiodarone 200 mg tablet Discontinued 200 mg PO DAILY 30 January 07, 2023 1:55pm January 13, 2023 1:50pm afib ascorbic acid 500 mg oral tablet (7 sources) Vitamin C Start: 12-06-2022 End: 01-13-2023 take 1 tablet by mouth once daily Ascorbic Acid (Vitamin C) (C-500) 500 mg tablet Discontinued 500 mg PO DAILY@1200 December 06, 2022 12:00am January 13, 2023 1:18pm vitamin Ascorbic Acid-Elderberry Fruit (10 sources) Start: 08-14-2020 [...] 1:00am Ascorbic Acid-Elderberry Fruit 1 EACH tablet,chewable (4 sources) Start: 08-14-2020 End: 01-13-2023 take 1 tablet by mouth once daily Ascorbic Acid-Elderberry Fruit 1 EACH tablet,chewable Discontinued 1 NMA PO DAILY August 14, 2020 1:00am January 13, 2023 1:18pm supplement Start: 08-14-2020 End: 01-13-2023 take 1 tablet by mouth once daily Ascorbic Acid-Elderberry Fruit 1 EACH tablet,chewable Discontinued 1 NMA PO DAILY August 14, 2020 1:00am January 13, 2023 1:18pm atenolol 50 mg oral tablet (20 sources) beta-Adrenergic Bright Start: 07-05-2018 End: 12-24-2022 take 1 tablet by mouth once daily Atenolol 50 tablet Discontinued 50 mg PO DAILY July 05, 2018 1:00am December 24, 2022 11:28am blood pressure End: 12-06-2022 take 1 tablet by mouth [...] sources) HMG-CoA Reductase Inhibitor Start: 07-05-2018 End: 11-12-2024 take 1 tablet by mouth at bedtime Atorvastatin 10 MG tablet Discontinued 10 mg PO AT BEDTIME 30 0 December 29, 2022 5:40pm January 13, 2023 1:50pm cholesterol Boswellia-Glucosami ne-Vit D (OSTEO BI-FLEX ONE PER DAY PO) (6 sources) End: 10-13-2022 Boswellia-Glucosami ne-Vit D (OSTEO BI-FLEX ONE PER DAY PO) Take by mouth. 10/13/2022 Discontinued (Stop Taking at Discharge) Boswellia-Glucos amine-Vit D (OSTEO BI-FLEX ONE PER DAY PO) Take by mouth. 0 Active calcium carbonate 1250 mg / cholecalciferol 600 unt oral tablet (14 sources) Vitamin D Start: 08-14-2020 End: 09-27-2024 Calcium Carbonate-Vitamin D3 1 EACH tablet Discontinued 2 NMA PO DAILY August 14, 2020 1:00am September 27, 2024 9:59am supplement Start: 08-14-2020 Calcium Carbon ate-Vitamin D3 Active [...] (20 sources) alpha-Adrenergic Bright, beta-Adrenergic Bright Start: 12-03-2024 End: 12-03-2024 take 1 tablet by mouth twice daily Carvedilol 12.5 mg tablet Discontinued 12.5 mg PO TWICE A DAY December 03, 2024 12:00am December 03, 2024 5:40pm Start: 11-08-2024 End: 11-12-2024 Start: 12-06-2022 End: 11-12-2024 carveDILOL 12.5 MG tablet 1 tablet by Per NG tube route every 12 hours. 60 tablet 12/06/2022 11/12/2024 Discontinued (Stop Taking at Discharge) Start: 12-06-2022 End: 11-13-2024 take 1 tablet by mouth twice daily Carvedilol 12.5 mg tablet Discontinued 12.5 mg PO TWICE A DAY 180 3 December 12, 2023 8:06am November 13, 2024 8:59am cefTRIAXone 1000 mg injection (2 sources) Cephalosporin Antibacterial Start: 11-09-2024 End: 11-12-2024 1 g, Intravenous, Administer over 30 Minutes, DAILY, First dose on Tue11/09/24 at 1030, Until Discontinued cephalexin 500 mg oral capsule (7 sources) Cephalosporin Antibacterial Start: 12-06-2022 End: 12-29-2022 take 1 capsule by mouth every twelve hours Cephalexin 500 mg capsule Discontinued 500 mg PO Q12H December 06, 2022 12:00am December 29, 2022 5:36pm atb docusate sodium 100 mg oral capsule (14 sources) Start: 08-19-2020 End: 08-28-2020 take 1 capsule by mouth twice daily Docusate Sodium 100 MG capsule Discontinued 100 mg PO TWICE A DAY 30 0 August 19, 2020 12:00am August 28, 2020 9:41pm doxazosin 2 mg oral tablet (20 sources) alpha-Adrenergic Bright Start: 12-03-2024 End: 12-03-2024 take 1 tablet by mouth once daily Doxazosin 2 mg tablet Discontinued 2 mg PO DAILY December 03, 2024 12:00am December 03, 2024 5:40pm Start: 11-08-2024 End: 11-10-2024 take 2 mg by mouth once daily 2 mg, Oral, Nightly, Fir st dose on Donita 11/08/24 at 2100, Until Discontinued Start: 12-06-2022 End: 11-13-2024 take 1 tablet by mouth at bedtime Doxazosin 2 mg tablet Discontinued 2 mg PO AT BEDTIME 90 3 December 12, 2023 8:06am November 13, 2024 8:59am ferrous sulfate 325 mg oral tablet (7 sources) Start: 12-06-2022 End: 01-13-2023 take 1 tablet by mouth once daily Ferrous Sulfate (Loly-Time) 325 mg (65 mg iron) tablet Discontinued 325 mg PO DAILY@1200 December 06, 2022 12:00am January 13, 2023 1:18pm iron Gadopiclenol SOLN 1-25 mL (6 sources) Start: 11-10-2024 End: 11-10-2024 1-25 mL, Intravenous, ONCE, 1 dose, On 11/10/24 at 1100 Start: 07-11-2024 End: 07-11-2024 1-25 mL, Intravenous, ONCE, 1 dose, On Tue07/11/24 at 0945 Start: 03-14-2024 End: 03-14-2024 1-25 mL, Intravenous, ONCE, 1 dose, On 03/14/24 at 1400 Start: 11-29-2023 End: 11-29-2023 1-25 [...] Ga 68 Dotatate (Nets pot) 0.5-5.94 millicurie Garlic preparation (10 sources) Non-Standardized Food Allergenic Extract Start: 09-27-2024 End: 11-13-2024 garlic extract Discontinued 1 {tbl} PO DAILY September 27, 2024 12:00am November 13, 2024 8:59am supplement Start: 09-27-2024 End: 11-13-2024 garlic extract Discontinued 1 {tbl} PO DAILY September 27, 2024 12:00am November 13, 2024 8:59am Start: 09-27-2024 garlic extract Active 1 {tbl} PO DAILY September 27, 2024 12:00am End: 11-17-2022 Garlic (GARLIQUE PO) Take by mouth daily every morning. 11/17/2022 Discontinued (Medication Reconciliation (suppress cancel msg)) Garlic (GARLIQUE PO) Take by mouth daily every morning. 0 Active Garlic (GARLIQUE PO) Take by mouth. 0 Active guaiFENesin 20 mg/ml oral solution (2 sources) Start: 11-08-2024 End: 11-12-2024 take 400 mg by mouth every six hours as needed 400 mg, Oral, EVERY 6 HOURS NEEDED, Starting on Donita 11/08/24 at 1549, Until 11/12/24 at 1804, Cough, Congestion hydroCHLOROthiazide 25 mg oral tablet (20 sources) Thiazide Diuretic Start: 07-05-2018 End: 11-12-2024 take 1 tablet by mouth once daily Hydrochlorothiazide 25 mg tablet Discontinued 25 mg PO DAILY 90 3 December 12, 2023 8:05am September 27, 2024 10:00am linezolid 600 mg oral tablet (7 sources) Oxazolidinone Antibacterial Start: 12-06-2022 End: 12-29-2022 take 1 tablet by mouth every twelve hours Linezolid 600 mg tablet Discontinued 600 mg PO Q12H December 06, 2022 12:00am December 29, 2022 5:37pm atb lisinopril 10 mg oral tablet (20 sources) Angiotensin Converting Enzyme Inhibitor Start: 11-11-2024 End: 11-27-2024 take 1 tablet by mouth once daily Lisinopril 10 mg tablet Discontinued 10 mg PO DAILY November 12, 2024 12:00am November 27, 2024 4:43pm BP Start: 12-29-2022 End: 11-12-2024 take 1 tablet by mouth once daily Lisinopril 2.5 mg Tablet Discontinued 2.5 mg PO DAILY 30 0 December 29, 2022 12:00am January 13, 2023 1:18pm On Hold: BP is low Magnesium Chloride (20 sources) Start: 11-12-2024 End: 12-03-2024 take 64 mg by mouth at bedtime magnesium chloride Discontinued 64 mg PO AT BEDTIME November 12, 2024 12:00am December 03, 2024 5:42pm Supplement Start: 11-12-2024 take 64 mg by mouth at bedtime magnesium chloride Active 64 mg PO AT BEDTIME November 12, 2024 12:00am Start: 01-01-2023 magnesium Chlo ride (Mag64) [address] tablet ER 01/01/2023 Active Start: 12-29-2022 Magnesium Chlo ride (Mag 64) 64 mg Tablet,Delayed Release (Dr/Ec) Active 128 MG PO TWICE A DAY 60 December 28, 2022 11:00pm Start: 12-29-2022 End: 09-27-2024 Magnesium Chloride (Mag 64) 64 mg Tablet,Delayed Release (Dr/Ec) Discontinued 128 mg PO TWICE A DAY 60 0 December 29, 2022 12:00am September 27, 2024 10:00am melatonin 3 mg oral tablet (2 sources) Start: 11-08-2024 End: 11-12-2024 take 6 mg [...] (suppress cancel msg)) take 1 capsule by [facility] once daily in the morning Multiple Vitamin (multivitamin) capsule Take 1 capsule by mouth daily every morning. 0 Active take 1 capsule by mouth once jayme ly Multiple Vitamin (multivitamin) capsule Take 1 capsule by mouth daily. 0 Active 200 ml niCARdipine hydrochloride 0.2 mg/ml injection (2 sources) Dihydropyridine Calcium Channel Bright Start: 11-07-2024 End: [...] condition. Ondansetron 4mg/2ml (ZOFRAN) injection 4 mg (2 sources) Start: 11-08-2024 End: 11-12-2024 take 4 mg intravenously every six hours as needed Ondansetron 4mg/2ml (ZOFRAN) injection 4 mg polyethylene glycol 3350 [id number] mg powder for oral solution (9 sources) Osmotic Laxative Start: 11-09-2024 End: 11-12-2024 17 g, Oral, DAILY, First dose on Tue11/09/24 at 0900, Until Discontinued Start: 12-06-2022 End: 12-29-2022 Polyethylene Glycol 3350 (Mi ralax) 17 gram powder in packet Discontinued 17 g PO DAILY December 06, 2022 12:00am December 29, 2022 5:38pm constipation potassium chloride 20 meq extended release oral tablet (4 sources) Start: 01-17-2024 End: 09-27-2024 take 1 tablet [...] 06, 2022 12:00am Selenium 200 mcg capsule (4 sources) Start: 12-06-2022 End: 01-13-2023 take 1 capsule by mouth once daily Selenium 200 mcg capsule Discontinued 200 ug PO DAILY December 06, 2022 12:00am January 13, 2023 1:18pm vitamin Start: 12-06-2022 End: 01-13-2023 take 1 capsule by mouth once daily Selenium 200 mcg capsule Discontinued 200 ug PO DAILY December 06, 2022 12:00am January 13, 2023 1:18pm sennosides, group home 8.6 mg oral tablet (2 sources) Start: 11-08-2024 End: 11-12-2024 take 8.6 mg by mouth once daily as needed for constipation 8.6 mg, Oral, DAILY NEEDED, Starting on Tue11/08/24 at 1551, Until Tue11/12/24 at 1804, Constipation 1st Line spironolactone 25 mg oral tablet (10 sources) Aldosterone Antagonist Start: 12-03-2024 End: 12-03-2024 take 1 tablet by mouth once daily Spironolactone 25 mg tablet Discontinued 25 mg PO DAILY December 03, 2024 12:00am December 03, 2024 5:41pm Start: 09-27-2024 End: 11-13-2024 take 1 tablet by mouth once daily Spironolactone 25 mg tablet Discontinued 25 mg PO DAILY September 27, 2024 12:00am November 13, 2024 8:59am Start: 03-20-2024 End: 11-12-2024 take 25 mg by mouth once daily Spironolactone 25 MG/5M L Suspension Take 25 mg by mouth daily. 03/20/2024 11/12/2024 Discontinued (Stop Taking at Discharge) zinc gluconate 50 mg oral tablet (1 source) End: 10-13-2022 Zinc 50 MG tablet Take by [facility]. 10/13/2022 Discontinued (Stop Taking at Discharge) Problems Active Problems Problem Classification Problem Date Documented Da te Episodic/Chronic Acute cerebrovascular disease (13 sources) Ischemic stroke; Translations: [Cerebral infarction, unspecified] Onset: 03-12-2024 12-08-2022 Chronic Comment on above: suspect embolic - mu ltiple foci in different areas of the brain Suspect embolic - mu ltiple foci in different areas of the brain in 2022 following excision of meningioma......had AF at the time. Acute posthemorrhagic anemia (9 sources) Acute posthemorrhagic anemia; Translations: [Acute posthemorrhagic anemia] 12-08-2022 Episodic Anxiety disorders (6 sources) Severe anxiety (panic); Translations: [Anxiety disorder, unspecified] Onset: 11-29-2024 11-29-2024 Chronic Cancer of brain and nervous system (20 sources) Malignant neoplasm of cerebral meninges; Translations: [Malignant neoplasm of cerebral meninges] Onset: 01-06-2023 01-12-2023 Chronic Cardiac dysrhythmias (20 sources) Paroxysmal atrial fibrillation; Translations: [Paroxysmal atrial fibrillation] Onset: 11-07-2024 01-09-2023 Chronic Comment on above: New onset on 12/25/19 23 Cardiac dysrhythmias (7 sources) Sinus bradycardia; Translations: [Bradycardia, unspecified] Onset: 11-29-2024 11-07-2024 Episodic Chronic ulcer of skin (6 sources) Pressure ulcer of sacral region, stage 2; Translations: [Pressure injury of coccygeal region, stage 2] Onset: 11-29-2024 11-29-2024 Chronic Deficiency and other anemia (4 sources) Chronic anemia; Translations: [Anemia, unspecified] 11-13-2024 Episodic Deficiency and other anemia (2 sources) Anemia, unspecified; Translations: [Anemia, unspecified] Onset: 11-29-2024 Episodic Disorders of lipid metabolism (14 sources) Hyperlipidemia; Translations: [Hyperlipidemia, unspecified] Onset: 05-15-2024 Chronic E Codes: Fall (14 sources) Fall; Translations: [Unspecified fall, initial encounter] 08-08-2021 Episodic Epilepsy; convulsions (6 sources) Seizure disorder; Translations: [Epilepsy, unspecified, not intractable, without status epilepticus] Onset: 11-29-2024 11-13-2024 Chronic Epilepsy; convulsions (8 sources) Seizure; Translations: [Unspecified convulsions] Onset: 11-07-2024 11-12-2024 Episodic Essential hypertension (14 sources) Essential hypertension; Translations: [Essential (primary) hypertension] Onset: 11-29-2024 Chronic Fluid and electrolyte disorders (20 sources) Hyponatremia; Translations: [Hypo-osmolality and hyponatremia] Onset: 11-17-2022 12-08-2022 Episodic Comment on above: Acute on chronic.... 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] Onset: 11-29-2024 12-08-2022 Chronic Heart valve disorders (4 sources) Heart murmur; Translations: [Cardiac murmur, unspecified] Onset: 11-07-2024 11-12-2024 Episodic Hemorrhoids (14 sources) Hemorrhoids; Translations: [Unspecified hemorrhoids] 08-28-2020 Episodic Intestinal infection (4 sources) Clostridioides difficile infection; Translations: [Enterocolitis due to Clostridium difficile, not specified as recurrent] 12-07-2022 Episodic Intracranial injury (13 sources) Hematoma; Translations: [Epidural hematoma] Onset: 11-08-2024 11-08-2024 Episodic Comment on above: possible subactue co mponent. Neurosurgery recommended holding Eliquis for 2 weeks. Essentially unchanged from previous study Malaise and fatigue (15 sources) Asthenia; Translations: [Other malaise] Onset: 11-29-2024 12-08-2022 Episodic Malignant neoplasm without specification of site (20 sources) Malignant neuroendocrine tumor; Translations: [Other malignant neuroendocrine tumors] Onset: 01-06-2023 01-12-2023 Chronic Mycoses (9 sources) Candidiasis of mouth; Translations: [Candidal stomatitis] 12-08-2022 Episodic Nonspecific chest pain (5 sources) Chest pain; Translations: [Chest pain, unspecified] Onset: 10-01-2024 09-27-2024 Episodic Other aftercare (2 sources) Drug therapy finding; Translations: [Other usp (current) drug therapy] 07-19-2023 Episodic Other aftercare (3 sources) Other terminal computer operator (current) drug therapy; Translations: [Long-term (current) use of other medications] Onset: 11-29-2024 07-19-2023 Episodic Other aftercare (5 sources) Long-term current use of anticoagulant; Translations: [ferry terminal agent (current) use of anticoagulants] 11-07-2024 Episodic Comment on above: On Eliquis for PAF.. 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 Other aftercare (5 sources) Long-term current use of amiodarone; Translations: [Other usp (current) drug therapy] 07-19-2023 Episodic Other aftercare (2 sources) ferry terminal agent (current) use of anticoagulants; Translations: [long-term (current) use of anticoagulants] Onset: 11-29-2024 Episodic Other and ill-defined cerebrovascular disease (7 sources) Cerebrovascular disease; Translations: [Cerebrovascular disease, unspecified] 12-08-2022 Chronic Other and ill-defined cerebrovascular disease (1 source) Cerebrovascular disease, unspecified; Translations: [Unspecified cerebrovascular disease] 12-23-2022 Chronic Other and ill-defined heart disease (4 sources) Diastolic dysfunction; Translations: [Other ill-defined heart diseases] 11-29-2024 Chronic Other and ill-defined heart disease (2 sources) Other ill-defined heart diseases; Translations: [Other ill-defined heart diseases] Onset: 11-29-2024 Chronic Other circulatory disease (7 sources) Carotid bruit; Translations: [Other specified symptoms and signs involving the circulatory and respiratory systems] 07-19-2023 Episodic Comment on above: No significant extra cranial stenosis on MRA November 2024.......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 Other circulatory disease (3 sources) Other specified symptoms and signs involving the circulatory and respiratory systems; Translations: [Other symptoms involving cardiovascular system] Onset: 11-29-2024 07-19-2023 Episodic Other connective tissue disease (4 sources) Muscle weakness; Translations: [Muscle weakness (generalized)] 11-29-2024 Episodic Other connective tissue disease (2 sources) Muscle weakness (generalized); Translations: [Muscle weakness (generalized)] Onset: 11-29-2024 Episodic Other ear and sense organ disorders (7 sources) Excessive cerumen in ear canal ; Translations: [Impacted cerumen, bilateral] 12-20-2022 Episodic Other ear and sense organ disorders (2 sources) Impacted cerumen, bilateral; Translations: [Impacted cerumen] 12-23-2022 Episodic Other ear and sense organ disorders (4 sources) Presbycusis; Translations: [Presbycusis, unspecified ear] 11-29-2024 Episodic Other ear and sense organ disorders (2 sources) Presbycusis, unspecified ear; Translations: [Presbycusis, unspecified ear] Onset: 11-29-2024 Episodic Other ear and sense organ disorders (2 sources) Presbycusis, bilateral; Translations: [Presbycusis, bilateral] Onset: 11-29-2024 Episodic Other nervous system disorders (3 sources) Difficulty walking; Translations: [Difficulty in walking, not elsewhere classified] 11-07-2024 Chronic Other nervous system disorders (2 sources) Walking disability; Translations: [Difficulty in walking, not elsewhere classified] 12-03-2024 Chronic Other skin disorders (12 sources) Lesion of scalp; Translations: [Disorder of [...] since made a referral to neurosurgery with [facility]. Today I did share CT [...] skin changes] 07-11-2024 Episodic Pulmonary heart disease (8 sources) Pulmonary hypertension; Translations: [Pulmonary hypertension, unspecified] 12-08-2022 Chronic Residual codes; unclassified (7 sources) History of craniotomy; Translations: [Other specified postprocedural states] 12-08-2022 Episodic Comment on above: November [address] [facility] [address] Kincaid. Residual codes; unclassified (1 source) Other specified postprocedural states; Translations: [Other postprocedural status] 12-23-2022 Episodic Sprains and strains (14 sources) Lumbosacral strain; Translations: [Strain of muscle, fascia and tendon of lower back, initial encounter] 07-06-2018 Episodic Superficial injury; contusion (14 sources) Contusion of shoulder region; Translations: [Contusion of left shoulder, initial encounter] 08-08-2021 Episodic Unclassified (2 sources) this will be an over the phone appt. Unclassified (2 sources) Seeing Dr. Kiran from now on. Unclassified (2 sources) Dr Schulte's office will contact you Unclassified (2 sources) Epidural hemorrhage with loss of consciousness status unknown, initial encounter; Translations: [Epidural hemorrhage with loss of consciousness status unknown, initial encounter] Onset: 11-29-2024 Urinary tract infections (7 sources) Acute cystitis; Translations: [Acute cystitis without hematuria] Onset: 11-29-2024 11-29-2024 Episodic Past or Other Problems Problem Classification Problem Date Documented Da te Episodic/Chronic Deficiency and other anemia (20 sources) Anemia; Translations: [Anemia, unspecified] Onset: 11-16-2022 11-17-2022 Episodic Mood disorders (20 sources) Mood disorders Onset: 09-30-2022 Resolved: 07-11-2024 09-30-2022 Other bone disease and musculoskeletal deformities (20 [...] Name Value Interpretation Reference Range Facility Absolute lymphocyte countOrd ered By: Hayden Sadler on 12-03-2024 Lymphocytes Auto (Unsp spec) [#/Vol] 0.66 10*3/uL Low 0.83-4.51 [facility] Absolute neutrophil countOrd ered By: Hayden Sadler on 12-03-2024 Neutrophils (Bld) [#/Vol] 5.9 10*3/uL 2.0-7.7 [facility] Anion gap in Serum or Plasma Ordered By: Hayden Sadler on 12-03-2024 Anion gap [Moles/Vol] 10 mmol/L 5-15 [facility] Automated lymphocyte count a s percentage of total leukocytesOrdered By: Hayden Sadler on 12-03-2024 Lymphocytes/100 WBC Auto (Unsp spec) 9.0 % Low 19-41 [facility] BUN/creatinine ratioOrdered By: Hayden Sadler on 12-03-2024 Urea nitrogen/Creatinine [Mass ratio] 22.8 mg/mg High 10-20 [facility] Basophil percentageOrdered B y: Hayden Sadler on 12-03-2024 Basophils/100 WBC (Bld) 0.3 % 0-1 [facility] Bilirubin Test strip Ql (U)O rdered By: Hayden Sadler on 12-03-2024 Bilirubin Ql (U) Negative Negative [facility] Bilirubin, totalOrdered By: Hayden Sadler on 12-03-2024 Bilirubin [Mass/Vol] 0.65 mg/dL 0.00-1.30 [facility] Carbon dioxide, total [Moles /volume] in Central venous bloodOrdered By: Hayden Sadler on 12-03-2024 CO2 [Moles/Vol] 22.8 mmol/L 21.0-32.0 [facility] Chloride assayOrdered By: Delfin Sadler on 12-03-2024 Chloride [Moles/Vol] 100 mmol/L 98-108 [facility] Eosinophil percentageOrdered By: Hayden Sadler on 12-03-2024 Eosinophils/100 WBC (Bld) 0.1 % 0-5 [facility] Erythrocyte distribution wid th ratioOrdered By: Hayden Sadler on 12-03-2024 Erythrocyte distribution width (RBC) [Ratio] 12.6 % 11.6-14.6 [facility] Erythrocyte distribution wid th standard deviationOrdered By: Hayden Sadler on 12-03-2024 Erythrocyte distribution width (RBC) [Ratio] 43.1 fl 35.1-43.9 [facility] Glomerular filtration rate ( GFR) estimation/1.73 sq m using serum, plasma, or whole bOrdered By: Hayden Sadler on 12-03-2024 GFR/1.73 sq M.predicted among non-blacks MDRD (S/P/Bld) [Vol rate/Area] 88 mL/min/{1.73_m2} >60 [facility] Comment on above: mL/min/1.73m2 CKD-EP I Creatinine Equation (2020) Hematocrit Auto (Bld) [Volum e fraction]Ordered By: Hayden Sadler on 12-03-2024 Hematocrit (Bld) [Volume fraction] 28.2 % Low 37-47 [facility] Hemoglobin measurementOrdere d By: Hayden Sadler on 12-03-2024 Hemoglobin (Bld) [Mass/Vol] 10.0 g/dL Low 12.0-15.0 [facility] Immature granulocytes/100 WB C Auto (Bld)Ordered By: Hayden Sadler on 12-03-2024 Immature granulocytes/100 WBC (Bld) 0.700 % 0.0-0.9 [facility] Comment on above: IG% - Immature Granu locytes (promyelocytes, myelocytes and metamyelocytes) > 1% indicates that a LEFT SHIFT is Present. Ketones Test strip Ql (U)Ord ered By: Hayden Sadler on 12-03-2024 Ketones Ql (U) 5 mg/dl High Negative [facility] - Chemistry and C hemistry - challengeOrdered By: Hayden Sadler on 12-03-2024 AST [Catalytic activity/Vol] 104 U/L High <32 [facility] Lipase measurementOrdered By : Haydenjanusz Sadler on 12-03-2024 Lipase [Catalytic activity/Vol] 68 U/L 13-75 [facility] Comment on above: Please note:LIPASE r evised reference range effective 23. New Lipase methodology. Expected to produce lower values than the previous assay method. NEW Reference Range: 13 - 75 U/L MCV (mean corpuscular volume ) determinationOrdered By: Hayden Sadler on 12-03-2024 MCV (RBC) [Entitic vol] 92.8 fL 81-99 [facility] Mean corpuscular hemoglobin (MCH) determinationOrdered By: Hayden Sadler on 12-03-2024 MCH (RBC) [Entitic mass] 32.9 pg High 27.0-32.0 [facility] Mean corpuscular hemoglobin concentration (MCHC) determinationOrdered By: Hayden Sadler on 12-03-2024 MCHC (RBC) [Mass/Vol] 35.5 g/dL 32-36 [facility] Mean platelet volume determi nationOrdered By: Hayden Sadler on 12-03-2024 Platelet mean volume (Bld) [Entitic vol] 10.2 fL 6.2-12.0 [facility] Microscopic analysis of urin e for red blood cells (RBC)Ordered By: Hayden Sadler on 12-03-2024 Microscopic analysis of urine for red blood cells (RBC) 0-5 SEEN /hpf 0-5 [facility] Monocyte percentageOrdered B y: Hayden Sadler on 12-03-2024 Monocytes/100 WBC (Bld) 9.6 % 0-10 [facility] Mucus LM Ql (Urine sed)Order ed By: Hayden Sadler on 12-03-2024 Mucus Ql (Urine sed) 0 SEEN /hpf [facility] Neutrophil percentageOrdered By: Hayden Sadler on 12-03-2024 Neutrophils/100 WBC (Bld) 80.3 % High 47-70 [facility] Nitrite Test strip Ql (U)Ord ered By: Hayden Sadler on 12-03-2024 Nitrite Ql (U) Positive High Negative [facility] Nucleated red blood cell per centageOrdered By: Hayden Sadler on 12-03-2024 Nucleated RBC/100 WBC (Bld) [Ratio] 0 % 0-5 [facility] Platelet countOrdered By: Delfin Sadler on 12-03-2024 Platelets (Bld) [#/Vol] 197 10*3/uL 150-450 [facility] Potassium measurement (mass/ volume)Ordered By: Hayden Sadler on 12-03-2024 Potassium (Unsp spec) [Mass/Vol] 3.7 mmol/L 3.3-5.1 [facility] Protein Test strip Ql (U)Ord ered By: Hayden Sadler on 12-03-2024 Protein Ql (U) 15 mg/dl High Negative [facility] RBC Auto (Bld) [#/Vol]Ordere d By: Hayden Sadler on 12-03-2024 RBC (Bld) [#/Vol] 3.04 10*6/uL Low 4.2-5.4 [facility] Serum creatinine measurement (mass/volume)Ordered By: Hayden Sadler on 12-03-2024 Creatinine [Mass/Vol] 0.67 mg/dL Low 0.70-1.20 [facility] Serum globulin measurementOr dered By: Hayden Sadler on 12-03-2024 Globulin (S) [Mass/Vol] 2.1 g/dL Low 2.2-4.2 [facility] Serum glucose measurement (m ass/volume)Ordered By: Hayden Sadler on 12-03-2024 Glucose [Mass/Vol] 106 mg/dL High 70-99 [facility] Serum or plasma alanine oliver otransferase (ALT) measurementOrdered By: Hayden Sadler on 12-03-2024 ALT [Catalytic activity/Vol] 282 U/L High <35 [facility] Serum or plasma albumin ena urement (mass/volume)Ordered By: Hayden Sadler on 12-03-2024 Albumin [Mass/Vol] 3.7 g/dL 3.4-4.8 [facility] Serum or plasma albumin/glob ulin mass ratioOrdered By: Hayden Sadler on 12-03-2024 Albumin/Globulin [Mass ratio] 1.8 {ratio} 0.9-2.4 [facility] Serum or plasma alkaline brenna sphatase measurementOrdered By: Hayden Sadler on 12-03-2024 ALP [Catalytic activity/Vol] 104 U/L 35-104 [facility] Serum or plasma calcium ena urement (mass/volume)Ordered By: Hayden Sadler on 12-03-2024 Calcium [Mass/Vol] 8.8 mg/dL 7.6-11.0 [facility] Serum or plasma urea nitroge n measurement (mass/volume)Ordered By: Hayden Sadler on 12-03-2024 Urea nitrogen [Mass/Vol] 15 mg/dL 4-19 [facility] Sodium levelOrdered By: Naomi Sadler on 12-03-2024 Sodium [Moles/Vol] 133 mmol/L 133-145 [facility] Squamous epithelial cells de tection in urine sediment by light microscopyOrdered By: Hayden Sadler on 12-03-2024 Epithelial cells.squamous LM Ql (Urine sed) 0 SEEN /hpf 5-10 [facility] Total proteinOrdered By: Sarita Sadler on 12-03-2024 Protein [Mass/Vol] 5.8 g/dL Low 5.9-8.4 [facility] Urine clarityOrdered By: Sarita Sadler on 12-03-2024 Clarity (U) Clear Clear [facility] Urine color determinationOrd ered By: Hayden Sadler on 12-03-2024 Color (U) Straw Yellow [facility] Urine glucose detectionOrder ed By: Hayden Sadler on 12-03-2024 Glucose Ql (U) Normal mg/dl Normal [facility] Urine leukocyte esterase det ection by dipstickOrdered By: Hayden Sadler on 12-03-2024 Leukocyte esterase Test strip Ql (U) Negative Negative [facility] Urine pHOrdered By: Hayden briscoe on 12-03-2024 pH (U) 7.0 [pH] 5.0 - 8.0 [facility] Urine sediment bacteria coun t by microscopy (number/high power field)Ordered By: Hayden Sadler on 12-03-2024 Bacteria LM.HPF (Urine sed) [#/Area] 3 /[HPF] None Seen [facility] Urine specific gravity measu rementOrdered By: Hayden Sadler on 12-03-2024 Specific gravity (U) [Rel density] 1.010 1.002-1.030 [facility] Urine urobilinogen measureme ntOrdered By: Hayden Sadler on 12-03-2024 Urobilinogen Ql (U) Normal mg/dl Normal [facility] White blood cell (WBC) count Ordered By: Hayden Sadler on 12-03-2024 WBC (Bld) [#/Vol] 7.3 10*3/uL 4.4-11.0 [facility] White blood cell countOrdere d By: Hayden Sadler on 12-03-2024 White blood cell count 0-5 SEEN /hpf 0-5 [facility] Anion gap in Serum or Plasma Ordered By: Jo-Ann Arias on 11-29-2024 Anion gap [Moles/Vol] 10 mmol/L 5-15 [facility] BUN/creatinine ratioOrdered By: Jo-Ann Arias on 11-29-2024 Urea nitrogen/Creatinine [Mass ratio] 12.2 mg/mg - [facility] Basic Metabolic Profile (BMP )on 11-29-2024 BUN/CRE 12.2 RATIO Normal - [facility] Comment on above: Performed By: #### L [id number] #### [facility] [address] [place], [address] Calcium [Mass/Vol] 8.8 mg/dL Normal 7.6-11.0 [facility] Comment on above: Performed By: #### [id number] #### [facility] [address] [place], [address] Chloride [Moles/Vol] 101 mmol/L Normal 98-108 [facility] Comment on above: Performed By: #### [id number] #### [facility] [address] [place], [address] CO2 [Moles/Vol] 23.5 mmol/L Normal 21.0-32.0 [facility] Comment on above: Performed By: #### [id number] #### [facility] [address] [place], [address] Creatinine [Mass/Vol] 0.88 mg/dL Normal 0.70-1.20 [facility] Comment on above: Performed By: #### [id number] #### [facility] [address] [place], [address] ECRCL 36.01 ml/min Low 50-250 [facility] Comment on above: Performed By: #### [id number] #### [facility] [address] [place], [address] GAP 10 Normal 5-15 [facility] Comment on above: Performed By: #### L [id number] #### [facility] [address] [place], [address] GFR/1.73 sq M.predicted among non-blacks MDRD (S/P/Bld) [Vol rate/Area] 66 mL/min/{1.73_m2} Normal >60 [facility] Comment on above: Result Comment: mL/m in/1.73m2 CKD-EPI Creatinine Equation (2020) Performed By: #### L [id number] #### [facility] [address] [place], [address] Glucose [Mass/Vol] 114 mg/dL High 70-99 [facility] Comment on above: Performed By: #### L [id number] #### [facility] [address] [place], [address] Potassium [Moles/Vol] 4.0 mmol/L Normal 3.3-5.1 [facility] Comment on above: Performed By: #### [id number] #### [facility] [address] [place], [address] Sodium [Moles/Vol] 135 mmol/L Normal 133-145 [facility] Comment on above: Performed By: #### [id number] #### [facility] [address] [place], [address] Urea nitrogen [Mass/Vol] 11 mg/dL Normal 4-19 [facility] Comment on above: Performed By: #### L [id number] #### [facility] [address] [place], [address] Carbon dioxide, total [Moles /volume] in Central venous bloodOrdered By: Jo-Ann Arias on 11-29-2024 CO2 [Moles/Vol] 23.5 mmol/L 21.0-32.0 [facility] Chloride assayOrdered By: Morro Arias on 11-29-2024 Chloride [Moles/Vol] 101 mmol/L 98-108 [facility] Glomerular filtration rate ( GFR) estimation/1.73 sq m using serum, plasma, or whole bOrdered By: Jo-Ann Arias on 11-29-2024 GFR/1.73 sq M.predicted among non-blacks MDRD (S/P/Bld) [Vol rate/Area] 66 mL/min/{1.73_m2} >60 [facility] Comment on above: mL/min/1.73m2 CKD-EP I Creatinine Equation (2020) Potassium measurement (mass/ volume)Ordered By: Jo-Ann Arias on 11-29-2024 Potassium (Unsp spec) [Mass/Vol] 4.0 mmol/L 3.3-5.1 [facility] Serum creatinine measurement (mass/volume)Ordered By: Jo-Ann Arias on 11-29-2024 Creatinine [Mass/Vol] 0.88 mg/dL 0.70-1.20 [facility] Serum glucose measurement (m ass/volume)Ordered By: Jo-Ann Arias on 11-29-2024 Glucose [Mass/Vol] 114 mg/dL High 70-99 [facility] Serum or plasma calcium ena urement (mass/volume)Ordered By: Jo-Ann Arias on 11-29-2024 Calcium [Mass/Vol] 8.8 mg/dL 7.6-11.0 [facility] Serum or plasma urea nitroge n measurement (mass/volume)Ordered By: Jo-Ann Arias on 11-29-2024 Urea nitrogen [Mass/Vol] 11 mg/dL 4-19 [facility] Sodium levelOrdered By: Jo-Ann Arias on 11-29-2024 Sodium [Moles/Vol] 135 mmol/L 133-145 [facility] Basic Metabolic Profile (BMP )on 11-28-2024 BUN/CRE 12.9 RATIO Normal 10-20 [facility] Comment on above: Performed By: #### L [id number] #### [facility] [address] [place], [address] Calcium [Mass/Vol] 8.6 mg/dL Normal 7.6-11.0 [facility] Comment on above: Performed By: #### L [id number] #### [facility] [address] [place], [address] Chloride [Moles/Vol] 92 mmol/L Low 98-108 [facility] Comment on above: Performed By: #### [id number] #### [facility] [address] [place], [address] CO2 [Moles/Vol] 23.2 mmol/L Normal 21.0-32.0 [facility] Comment on above: Performed By: #### L [id number] #### [facility] [address] [place], [address] Creatinine [Mass/Vol] 0.77 mg/dL Normal 0.70-1.20 [facility] Comment on above: Performed By: #### [id number] #### [facility] [address] [place], [address] ECRCL 39.62 ml/min Low 50-250 [facility] Comment on above: Performed By: #### [id number] #### [facility] [address] [place], [address] GAP 10 Normal 5-15 [facility] Comment on above: Performed By: #### L [id number] #### [facility] [address] [place], [address] GFR/1.73 sq M.predicted among non-blacks MDRD (S/P/Bld) [Vol rate/Area] 77 mL/min/{1.73_m2} Normal >60 [facility] Comment on above: Result Comment: mL/m in/1.73m2 CKD-EPI Creatinine Equation (2020) Performed By: #### L [id number] #### [facility] [address] [place], [address] Glucose [Mass/Vol] 95 mg/dL Normal 70-99 [facility] Comment on above: Performed By: #### L [id number] #### [facility] [address] [place], [address] Potassium [Moles/Vol] 3.8 mmol/L Normal 3.3-5.1 [facility] Comment on above: Performed By: #### L [id number] #### [facility] [address] [place], [address] Sodium [Moles/Vol] 125 mmol/L Low 133-145 [facility] Comment on above: Performed By: #### L [id number] #### [facility] [address] [place], [address] Urea nitrogen [Mass/Vol] 10 mg/dL Normal 4-19 [facility] Comment on above: Performed By: #### L [id number] #### [facility] [address] [place], [address] Osmolality urOrdered By: Alyssa Arias on 11-28-2024 Osmolality (U) [Osmolality] 519 mOsm/KG >50 [facility] Comment on above: Normal Urine Referen ce Ranges Random: 50 - 1200 mOsm/kg H20 depending on fluid intake Random: >850 mOsm/kg after 12 hour fluid restriction 24 hour: ~300 - 900 mOsm/kg H2O Osmolality, Serumon 11-29-19 25 OSMOLALITY,SER 281 mOsm/KG Normal 280-301 [facility] Comment on above: Performed By: #### L [id number] #### [facility] [address] [place], [address] Osmolality, Urineon 11-29-19 25 OSMOLALITY,UR 519 mOsm/KG Normal [facility] Comment on above: Result Comment: Normal Urine Reference Ranges Random: 50 - 1200 mOsm/kg H20 depending on fluid intake Random: >850 mOsm/kg after 12 hour fluid restriction 24 hour: 300 - 900 mOsm/kg H2O Performed By: #### L [id number] #### [facility] [address] [place], [address] Renal Profileon 11-28-2024 Albumin [Mass/Vol] 3.6 g/dL Normal 3.4-4.8 [facility] Comment on above: Performed By: #### L [id number] #### [facility] [address] [place], [address] BUN/CRE 13.0 RATIO Normal 10-20 [facility] Comment on above: Performed By: #### L [id number] #### [facility] [address] [place], [address] Calcium [Mass/Vol] 8.9 mg/dL Normal 7.6-11.0 [facility] Comment on above: Performed By: #### L [id number] #### [facility] [address] [place], [address] Chloride [Moles/Vol] 92 mmol/L Low 98-108 [facility] Comment on above: Performed By: #### L [id number] #### [facility] [address] [place], [address] CO2 [Moles/Vol] 22.8 mmol/L Normal 21.0-32.0 [facility] Comment on above: Performed By: #### L [id number] #### [facility] [address] [place], [address] Creatinine [Mass/Vol] 0.75 mg/dL Normal 0.70-1.20 [facility] Comment on above: Performed By: #### L [id number] #### [facility] [address] [place], [address] ECRCL 39.62 ml/min Low 50-250 [facility] Comment on above: Performed By: #### L [id number] #### [facility] [address] [place], [address] GAP 11 Normal 5-15 [facility] Comment on above: Performed By: #### L [id number] #### [facility] [address] [place], [address] GFR/1.73 sq M.predicted among non-blacks MDRD (S/P/Bld) [Vol rate/Area] 80 mL/min/{1.73_m2} Normal >60 [facility] Comment on above: Result Comment: mL/m in/1.73m2 CKD-EPI Creatinine Equation (2020) Performed By: #### L [id number] #### [facility] [address] [place], [address] Glucose [Mass/Vol] 94 mg/dL Normal 70-99 [facility] Comment on above: Performed By: #### L [id number] #### [facility] [address] [place], [address] Phosphate [Mass/Vol] 3.5 mg/dL Normal 2.7-4.5 [facility] Comment on above: Performed By: #### L 500.3600 #### [facility] [address] [place], [address] Potassium [Moles/Vol] 3.8 mmol/L Normal 3.3-5.1 [facility] Comment on above: Performed By: #### L 500.3600 #### [facility] [address] [place], [address] Sodium [Moles/Vol] 126 mmol/L Low 133-145 [facility] Comment on above: Performed By: #### L 500.3600 #### [facility] [address] [place], [address] Urea nitrogen [Mass/Vol] 10 mg/dL Normal 4-19 [facility] Comment on above: Performed By: #### L 500.3600 #### [facility] [address] [place], [address] Serum or plasma albumin ena urement (mass/volume)Ordered By: Jo-Ann Arias on 11-28-2024 Albumin [Mass/Vol] 3.6 g/dL 3.4-4.8 [facility] Urine Cultureon 11-28-2024 [facility] Urine Culture Urine Culture Pseudomonas aeruginosa [place] Count 1000-10,000 Pseudomonas aeruginosa: REACTION Aztreonam Islt KB 22 Pseudomonas aeruginosa: REACTION Cefepime Islt PJ 2 Ciprofloxacin Islt PJ 0.12 S levoFLOXacin Islt PJ 0.25 S Meropenem Islt PJ 1 S Pip+Tazo Islt PJ 8 S Pseudomonas aeruginosa: REACTION Amikacin Islt PJ 4 Imipenem Islt PJ <=0.5 S Tobramycin Islt PJ 8 R Normal [facility] Comment on above: Performed By: #### L 500.2500 #### [facility] [place], [address] Urine Sodiumon 11-28-2024 Sodium (U) [Moles/Vol] 48 mmol/L Normal Not Establ. [facility] Comment on above: Performed By: #### L 506.0400, L501.9520, L501.44293 #### [facility] [address] [place], [address] Urine sodium measurement (mo les/volume)Ordered By: Jo-Ann Arias on 11-28-2024 Sodium (U) [Moles/Vol] 48 mmol/L Not Establ. [facility] Basic Metabolic Profile (BMP )on 11-27-2024 BUN/CRE 13.8 RATIO Normal 10-20 [facility] Comment on above: Performed By: #### L 500.2500 #### [facility] [address] [place], [address] Calcium [Mass/Vol] 8.7 mg/dL Normal 7.6-11.0 [facility] Comment on above: Performed By: #### L 500.2500 #### [facility] [address] [place], [address] Chloride [Moles/Vol] 93 mmol/L Low 98-108 [facility] Comment on above: Performed By: #### L 500.2500 #### [facility] [address] [place], [address] CO2 [Moles/Vol] 22.7 mmol/L Normal 21.0-32.0 [facility] Comment on above: Performed By: #### L 500.2500 #### [facility] [address] [place], [address] Creatinine [Mass/Vol] 0.77 mg/dL Normal 0.70-1.20 [facility] Comment on above: Performed By: #### L 500.2500 #### [facility] [address] [place], [address] ECRCL 39.62 ml/min Low 50-250 [facility] Comment on above: Performed By: #### L 500.2500 #### [facility] [address] [place], [address] GAP 11 Normal 5-15 [facility] Comment on above: Performed By: #### L 500.2500 #### [facility] [address] [place], [address] GFR/1.73 sq M.predicted among non-blacks MDRD (S/P/Bld) [Vol rate/Area] 78 mL/min/{1.73_m2} Normal >60 [facility] Comment on above: Result Comment: mL/m in/1.73m2 CKD-EPI Creatinine Equation (2020) Performed By: #### L 500.2500 #### [facility] [address] [place], [address] Glucose [Mass/Vol] 93 mg/dL Normal 70-99 [facility] Comment on above: Performed By: #### L 500.2500 #### [facility] [address] [place], [address] Potassium [Moles/Vol] 3.8 mmol/L Normal 3.3-5.1 [facility] Comment on above: Performed By: #### L 500.2500 #### [facility] [address] [place], [address] Sodium [Moles/Vol] 127 mmol/L Low 133-145 [facility] Comment on above: Performed By: #### L 500.2500 #### [facility] [address] [place], [address] Urea nitrogen [Mass/Vol] 11 mg/dL Normal 4-19 [facility] Comment on above: Performed By: #### L 500.2500 #### [facility] [address] [place], [address] CBC-Complete Blood Cnt No Di ffon 11-27-2024 Erythrocyte distribution width (RBC) [Ratio] 12.5 % Normal 11.6-14.6 [facility] Comment on above: Performed By: #### L 500.2500 #### [facility] [address] [place], [address] Hematocrit (Bld) [Volume fraction] 27.3 % Low 37-47 [facility] Comment on above: Performed By: #### L 500.2500 #### [facility] [address] [place], [address] Hemoglobin (Bld) [Mass/Vol] 9.9 g/dL Low 12.0-15.0 [facility] Comment on above: Performed By: #### L 500.2500 #### [facility] [address] [place], [address] MCH (RBC) [Entitic mass] 32.6 pg High 27.0-32.0 [facility] Comment on above: Performed By: #### L 500.2500 #### [facility] [address] [place], [address] MCHC (RBC) [Mass/Vol] 36.3 g/dL High 32-36 [facility] Comment on above: Performed By: #### L 500.2500 #### [facility] [address] [place], [address] MCV (RBC) [Entitic vol] 89.8 fL Normal 81-99 [facility] Comment on above: Performed By: #### L 500.2500 #### [facility] [address] [place], [address] Platelet mean volume (Bld) [Entitic vol] 10.2 fL Normal 6.2-12.0 [facility] Comment on above: Performed By: #### L 500.2500 #### [facility] [address] [place], [address] Platelets (Bld) [#/Vol] 226 10*3/uL Normal 150-450 [facility] Comment on above: Performed By: #### L 500.2500 #### [facility] [address] [place], [address] RBC (Bld) [#/Vol] 3.04 10*6/uL Low 4.2-5.4 [facility] Comment on above: Performed By: #### L 500.2500 #### [facility] [address] [place], [address] RDW SD 40.9 fl Normal 35.1-43.9 [facility] Comment on above: Performed By: #### L 500.2500 #### [facility] [address] [place], [address] WBC (Bld) [#/Vol] 8.6 10*3/uL Normal 4.4-11.0 [facility] Comment on above: Performed By: #### L 500.2500 #### [facility] [address] [place], [address] Discharge Instructionon 11-05 Discharge Instruction [facility] Medical Records Department [address] [facility] [place] [address] Instructions for Home/Discharge Instructions 11/27/24 1602 MR#: [id number] Acct: [id number] Name: SARAH MCGUIRE Rep #: [id number] : 1945 79 From: Jo-Ann Arias DO PCP: Dr. Monika Venegas MD Status:ADM IN Discharge Instructions Diet Discharge Diet: - (Limit fluid to five 8 ounce cups a day. Regular diet. ) DC O2, CPAP, BIPAP needs Home O2 Discharge instructions: No Dressing / Incision Discharge Activity: May Not Drive, May Shower and Use Walker Weight Bearing Status: Full weight bearing Dressing / Incision Call your doctor if you observe: Fever of 101 or Higher, Inability to urinate, Inability to have a bowel movement, Shortness of breath, Dizziness, Fainting spells, Swelling in the ankles, Chest pain and Calf discomfort Follow Up Care Please Follow Up With: Monika Venegas MD When: listed later in this document. You will also need to follow up with Dr. Melchor from neurology. Test Results: Test results from this visit will be discussed in further detail at your follow-up appointment, if applicable. Pending Tests Upon Discharge: none Discharge Plan Admission Admit Date/Time: 11/12/24 18:16 Primary Reason for Your Visit: Debility Attending Provider: Jo-Ann Arias Primary Care Provider: Monika Venegas Instructions Patient Instructions: Anxiety Disorders Tx, ED Anxiety Reaction, ED Panic Attack Additional Instructions / Restrictions: 1. We have not witnessed any seizures while you have been on rehab. We decreased the dose of the Keppra (antiepileptic drug) to 750 mg twice a day from 1000 mg twice a day. You had an EEG at [facility] and it was negative for seizure. You will need to follow up with a neurologist. There is a excellent neurologist in [place] and his name is Dr. Melchor. He may want to do some additional testing to see if you even need to be on and antiseizure medication. 2. Your sodium has been low while on rehab. This was a problem the last time you were on rehab also. 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 With this diagnosis the problem is NOT that your body is low in sodium.....it is that you have an excess of water that is diluting the sodium out. The treatment for this condition is to restrict fluid intake. You should not drink more than five 8 oz cups of water a day. Sometimes this is not enough and you have to take salt tabs as well. While you were on rehab we also had to give you a diuretic called Lasix a couple times to get rid of the excess water. You will need to have follow up lab done after you leave rehab to make sure the sodium is staying stable. Sometimes when people have SIADH and it is hard to keep the sodium up they have to see a head stock transfer clerk(kidney doctor) to help manage the medications. I would recommend follow up with Dr. Schulte who is a kidney doctor who sees outpatients at the hospital in his office. 3. You are very anxious. You tend to get an idea in your head and stick with it and agonize about it, even when things have been changed. Nausea can be a sx of uncontrolled anxiety. When we get anxious it can cause lightheadedness, headache, palpitations, chest pain, shortness of breath, nausea, diarrhea, difficulty sleeping and fatigue. Being anxious can feel terrible. I think some of the symptoms you have are due to anxiety and I suspect you would feel a lot better if this could be controlled. I think you would benefit from seeing a psychiatrist to try medication to control your anxiety and I also think you would benefit from counselling. TAlk to your PCP about this. 4. If you or Alexsandra have questions after you leave rehab please do not hesitate to call me. I have given you some handouts that talk about anxiety and some of the symptoms uncontrolled anxiety can cause......you have many of these symptoms.......I hope you and Alexsandra are able to read these together so you can make a plan for getting help to control anxiety. Your heart rate is normal now that you are off COREG. You continue to take Amiodarone that helps keep your heart rate in control. You are back on Eliquis which you need to continue to take to prevent strokes due to atrial fibrillation (AFIB). OFFICE: [phone] CELL: [phone] NURSES STATION ON REHAB: [phone] Discharge Orders/Prescriptions Prescriptions: New hydralazine 50 mg Tablet 50 mg PO TID Qty: 90 0RF levetiracetam 750 mg Tablet 750 mg PO BID Qty: 60 0RF sodium chloride 1,000 mg Tablet,Soluble 1,000 mg PO TIDCM Qty: 90 0RF Continued multivitamin Tablet 1 tablet PO DAILY cyanocobalamin (vitamin B-12) 500 MCG tablet,chewable 1,000 mcg PO DAILY cholecalciferol (vitamin D3) 125 MCG capsule 125 mcg PO DAILY zinc sulfate [Orazinc] 50 mg zinc (220 mg) capsule 220 mg PO LINDA (more content not included)... Normal [facility] Erythrocyte distribution wid th ratioOrdered By: Jo-Ann Arias on 11-27-2024 Erythrocyte distribution width (RBC) [Ratio] 12.5 % 11.6-14.6 [facility] Erythrocyte distribution wid th standard deviationOrdered By: Jo-Ann Arias on 11-27-2024 Erythrocyte distribution width (RBC) [Ratio] 40.9 fl 35.1-43.9 [facility] Hematocrit Auto (Bld) [Volum e fraction]Ordered By: Jo-Ann Arias on 11-27-2024 Hematocrit (Bld) [Volume fraction] 27.3 % Low 37-47 [facility] Hemoglobin measurementOrdere d By: Jo-Ann Arias on 11-27-2024 Hemoglobin (Bld) [Mass/Vol] 9.9 g/dL Low 12.0-15.0 [facility] MCV (mean corpuscular volume ) determinationOrdered By: Jo-Ann Arias on 11-27-2024 MCV (RBC) [Entitic vol] 89.8 fL 81-99 [facility] Mean corpuscular hemoglobin (MCH) determinationOrdered By: Jo-Ann Hugo on 11-27-2024 MCH (RBC) [Entitic mass] 32.6 pg High 27.0-32.0 [facility] Mean corpuscular hemoglobin concentration (MCHC) determinationOrdered By: Jo-Ann Hsiehjenny on 11-27-2024 MCHC (RBC) [Mass/Vol] 36.3 g/dL High 32-36 [facility] Mean platelet volume determi nationOrdered By: Jo-Ann Hugo on 11-27-2024 Platelet mean volume (Bld) [Entitic vol] 10.2 fL 6.2-12.0 [facility] Platelet countOrdered By: Morro zaidi Hugo on 11-27-2024 Platelets (Bld) [#/Vol] 226 10*3/uL 150-450 [facility] RBC Auto (Bld) [#/Vol]Ordere d By: Jo-Ann Hugo on 11-27-2024 RBC (Bld) [#/Vol] 3.04 10*6/uL Low 4.2-5.4 [facility] White blood cell (WBC) count Ordered By: Jo-Ann Hugo on 11-27-2024 WBC (Bld) [#/Vol] 8.6 10*3/uL 4.4-11.0 [facility] Basic Metabolic Profile (BMP )on 11-26-2024 BUN/CRE 12.8 RATIO Normal 10-20 [facility] Comment on above: Performed By: #### L 500.2500 #### [facility] [address] [place], [address] Calcium [Mass/Vol] 8.8 mg/dL Normal 7.6-11.0 [facility] Comment on above: Performed By: #### L 500.2500 #### [facility] [address] [place], [address] Chloride [Moles/Vol] 95 mmol/L Low 98-108 [facility] Comment on above: Performed By: #### L 500.2500 #### [facility] [address] [place], [address] CO2 [Moles/Vol] 22.9 mmol/L Normal 21.0-32.0 [facility] Comment on above: Performed By: #### L 500.2500 #### [facility] [address] [place], [address] Creatinine [Mass/Vol] 0.70 mg/dL Normal 0.70-1.20 [facility] Comment on above: Performed By: #### L 500.2500 #### [facility] [address] [place], [address] ECRCL 39.62 ml/min Low 50-250 [facility] Comment on above: Performed By: #### L 500.2500 #### [facility] [address] [place], [address] GAP 10 Normal 5-15 [facility] Comment on above: Performed By: #### L 500.2500 #### [facility] [address] [place], [address] GFR/1.73 sq M.predicted among non-blacks MDRD (S/P/Bld) [Vol rate/Area] 87 mL/min/{1.73_m2} Normal >60 [facility] Comment on above: Result Comment: mL/m in/1.73m2 CKD-EPI Creatinine Equation (2020) Performed By: #### L 500.2500 #### [facility] [address] [place], [address] Glucose [Mass/Vol] 101 mg/dL High 70-99 [facility] Comment on above: Performed By: #### L 500.2500 #### [facility] [address] [place], [address] Potassium [Moles/Vol] 4.1 mmol/L Normal 3.3-5.1 [facility] Comment on above: Performed By: #### L 500.2500 #### [facility] [address] [place], [address] Sodium [Moles/Vol] 127 mmol/L Low 133-145 [facility] Comment on above: Performed By: #### L 500.2500 #### [facility] [address] [place], [address] Urea nitrogen [Mass/Vol] 9 mg/dL Normal 4-19 [facility] Comment on above: Performed By: #### L 500.2500 #### [facility] [address] [place], [address] Urine cultureOrdered By: Alyssa Arias on 11-25-2024 Bacteria identified Cx Nom (U) Pseudomonas aeruginosa Abnormal [facility] Basic Metabolic Profile (BMP )on 11-24-2024 BUN/CRE 12.6 RATIO Normal 10-20 [facility] Comment on above: Performed By: #### L 500.2500 #### [facility] [address] [facility] [place], [address] Calcium [Mass/Vol] 8.7 mg/dL Normal 7.6-11.0 [facility] Comment on above: Performed By: #### L 500.2500 #### [facility] [address] [place], [address] Chloride [Moles/Vol] 97 mmol/L Low 98-108 [facility] Comment on above: Performed By: #### L 500.2500 #### [facility] [address] [place], [address] CO2 [Moles/Vol] 20.7 mmol/L Low 21.0-32.0 [facility] Comment on above: Performed By: #### L 500.2500 #### [facility] [address] [place], [address] Creatinine [Mass/Vol] 0.68 mg/dL Low 0.70-1.20 [facility] Comment on above: Performed By: #### L 500.2500 #### [facility] [address] [place], [address] ECRCL 39.62 ml/min Low 50-250 [facility] Comment on above: Performed By: #### L 500.2500 #### [facility] [address] [place], [address] GAP 9 Normal 5-15 [facility] Comment on above: Performed By: #### L 500.2500 #### [facility] [address] [place], [address] GFR/1.73 sq M.predicted among non-blacks MDRD (S/P/Bld) [Vol rate/Area] 88 mL/min/{1.73_m2} Normal >60 [facility] Comment on above: Result Comment: mL/m in/1.73m2 CKD-EPI Creatinine Equation (2020) Performed By: #### L 500.2500 #### [facility] [address] [place], [address] Glucose [Mass/Vol] 92 mg/dL Normal 70-99 [facility] Comment on above: Performed By: #### L 500.2500 #### [facility] [address] [place], [address] Potassium [Moles/Vol] 3.9 mmol/L Normal 3.3-5.1 [facility] Comment on above: Performed By: #### L 500.2500 #### [facility] [address] [place], [address] Sodium [Moles/Vol] 127 mmol/L Low 133-145 [facility] Comment on above: Performed By: #### L 500.2500 #### [facility] [address] [place], [address] Urea nitrogen [Mass/Vol] 9 mg/dL Normal 4-19 [facility] Comment on above: Performed By: #### L 500.2500 #### [facility] [address] [place], [address] Bilirubin Test strip Ql (U)O rdered By: Jo-Ann Hugo on 11-24-2024 Bilirubin Ql (U) Negative Negative [facility] Ketones Test strip Ql (U)Ord ered By: Jo-Ann Hugo on 11-24-2024 Ketones Ql (U) Negative Negative [facility] Microscopic analysis of urin e for red blood cells (RBC)Ordered By: Jo-Ann Arias on 11-24-2024 Microscopic analysis of urine for red blood cells (RBC) 0-5 SEEN /hpf 0-5 [facility] Mucus LM Ql (Urine sed)Order ed By: Jo-Ann Arias on 11-24-2024 Mucus Ql (Urine sed) 0 SEEN /hpf [facility] Protein Test strip Ql (U)Ord ered By: Jo-Ann Arias on 11-24-2024 Protein Ql (U) 15 mg/dl High Negative [facility] Squamous epithelial cells de tection in urine sediment by light microscopyOrdered By: Jo-Ann Arias on 11-24-2024 Epithelial cells.squamous LM Ql (Urine sed) 0 SEEN /hpf 5-10 [facility] Urinalysis, Completeon 11-24 RBC 0-5 SEEN Normal 0-5 [facility] Comment on above: Order Comment: MARILYN TER SPECIMEN Performed By: #### L 400.0001 #### [facility] [address] [place], [address] WBC 5-10 SEEN Normal 0-5 [facility] Comment on above: Order Comment: MARILYN TER SPECIMEN Performed By: #### L 400.0001 #### [facility] [address] [place], [address] BILIRUBIN URINE Negative Normal Negative [facility] Comment on above: Order Comment: MARILYN TER SPECIMEN Performed By: #### L 400.0001 #### [facility] [address] [place], [address] GLUCOSE, UR Normal Normal Normal [facility] Comment on above: Order Comment: MARILYN TER SPECIMEN Performed By: #### L 400.0001 #### [facility] [address] [place], [address] KETONE UR Negative Normal Negative [facility] Comment on above: Order Comment: MARILYN TER SPECIMEN Performed By: #### L 400.0001 #### [facility] [address] [place], [address] LEUK ESTERASE 100 /ul Abnormal Negative [facility] Comment on above: Order Comment: MARILYN TER SPECIMEN Performed By: #### L 400.0001 #### [facility] [address] [place], [address] OCCULT BLOOD-UR Negative Normal Negative [facility] Comment on above: Order Comment: MARILYN TER SPECIMEN Performed By: #### L 400.0001 #### [facility] [address] [place], [address] pH UR 6.0 Normal 5.0 - 8.0 [facility] Comment on above: Order Comment: MARILYN TER SPECIMEN Performed By: #### L 400.0001 #### [facility] [address] [place], [address] PROT DIPSTX 15 mg/dl Abnormal Negative [facility] Comment on above: Order Comment: MARILYN TER SPECIMEN Performed By: #### L 400.0001 #### [facility] [address] [place], [address] SP.GR. DIPSTX 1.020 Normal 1.002-1.030 [facility] Comment on above: Order Comment: MARILYN TER SPECIMEN Performed By: #### L 400.0001 #### [facility] [address] [place], [address] UROBILI Normal Normal Normal [facility] Comment on above: Order Comment: MARILYN TER SPECIMEN Performed By: #### L 400.0001 #### [facility] [address] [place], [address] BACTERIA 0 SEEN Normal None Seen [facility] Comment on above: Order Comment: MARILYN TER SPECIMEN Performed By: #### L 400.0001 #### [facility] [address] [place], [address] EPI,SQUAMOUS 0 SEEN Normal 5-10 [facility] Comment on above: Order Comment: MARILYN TER SPECIMEN Performed By: #### L 400.0001 #### [facility] [address] [place], [address] Mucus Ql (Urine sed) 0 SEEN Normal [facility] Comment on above: Order Comment: MARILYN TER SPECIMEN Performed By: #### L 400.0001 #### [facility] [address] [place], [address] Urine clarityOrdered By: Alyssa Arias on 11-24-2024 Clarity (U) Clear Clear [facility] Comment on above: Order Comment: MARILYN TER SPECIMEN Performed By: #### L 400.0001 #### [facility] [address] [place], [address] Urine color determinationOrd ered By: Jo-Ann Arias on 11-24-2024 Color (U) Yellow Yellow [facility] Comment on above: Order Comment: MARILYN TER SPECIMEN Performed By: #### L 400.0001 #### [facility] [address] [place], [address] Urine glucose detectionOrder ed By: Jo-Ann Arias on 11-24-2024 Glucose Ql (U) Normal mg/dl Normal [facility] Urine leukocyte esterase det ection by dipstickOrdered By: Jo-Ann Arias on 11-24-2024 Leukocyte esterase Test strip Ql (U) 100 /ul High Negative [facility] Urine nitrite test by dipsti ckOrdered By: Jo-Ann Arias on 11-24-2024 Nitrite Ql (U) Negative Negative [facility] Comment on above: Order Comment: MARILYN TER SPECIMEN Performed By: #### L 400.0001 #### [facility] [address] [place], [address] Urine pHOrdered By: Jo-Ann Hernández olivia on 11-24-2024 pH (U) 6.0 [pH] 5.0 - 8.0 [facility] Urine sediment bacteria coun t by microscopy (number/high power field)Ordered By: Jo-Ann Arias on 11-24-2024 Bacteria LM.HPF (Urine sed) [#/Area] 0 /[HPF] None Seen [facility] Urine specific gravity measu rementOrdered By: Jo-Ann Hsiehjenny on 11-24-2024 Specific gravity (U) [Rel density] 1.020 1.002-1.030 [facility] Urine urobilinogen measureme ntOrdered By: Jo-Ann Hsiehjenny on 11-24-2024 Urobilinogen Ql (U) Normal mg/dl Normal [facility] White blood cell countOrdere d By: Jo-Ann Hsiehjenny on 11-24-2024 White blood cell count 5-10 SEEN /hpf 0-5 [facility] Basic Metabolic Profile (BMP )on 11-22-2024 BUN/CRE 14.8 RATIO Normal 10-20 [facility] Comment on above: Performed By: #### L 500.2500 #### [facility] [address] [place], [address] Calcium [Mass/Vol] 8.8 mg/dL Normal 7.6-11.0 [facility] Comment on above: Performed By: #### L 500.2500 #### [facility] [address] [place], [address] Chloride [Moles/Vol] 98 mmol/L Normal 98-108 [facility] Comment on above: Performed By: #### L 500.2500 #### [facility] [address] [place], CO2 [Moles/Vol] 21.4 mmol/L Normal 21.0-32.0 [facility] Comment on above: Performed By: #### L 500.2500 #### [facility] [address] [place], [address] Creatinine [Mass/Vol] 0.76 mg/dL Normal 0.70-1.20 [facility] Comment on above: Performed By: #### L 500.2500 #### [facility] [address] [place], [address] ECRCL 39.62 ml/min Low 50-250 [facility] Comment on above: Performed By: #### L 500.2500 #### [facility] [address] [place], [address] GAP 10 Normal 5-15 [facility] Comment on above: Performed By: #### L 500.2500 #### [facility] [address] [place], [address] GFR/1.73 sq M.predicted among non-blacks MDRD (S/P/Bld) [Vol rate/Area] 79 mL/min/{1.73_m2} Normal >60 [facility] Comment on above: Result Comment: mL/m in/1.73m2 CKD-EPI Creatinine Equation (2020) Performed By: #### L 500.2500 #### [facility] [address] [place], [address] Glucose [Mass/Vol] 95 mg/dL Normal 70-99 [facility] Comment on above: Performed By: #### L 500.2500 #### [facility] [address] [place], [address] Potassium [Moles/Vol] 4.3 mmol/L Normal 3.3-5.1 [facility] Comment on above: Performed By: #### L 500.2500 #### [facility] [address] [place], [address] Sodium [Moles/Vol] 129 mmol/L Low 133-145 [facility] Comment on above: Performed By: #### L 500.2500 #### [facility] [address] [place], [address] Urea nitrogen [Mass/Vol] 11 mg/dL Normal 4-19 [facility] Comment on above: Performed By: #### L 500.2500 #### [facility] [address] [place], [address] Basic Metabolic Profile (BMP )on 11-19-2024 BUN/CRE 32.5 RATIO High 10-20 [facility] Comment on above: Performed By: #### L 500.2500 #### [facility] [address] [place], [address] Calcium [Mass/Vol] 9.2 mg/dL Normal 7.6-11.0 [facility] Comment on above: Performed By: #### L 500.2500 #### [facility] [address] [place], [address] Chloride [Moles/Vol] 103 mmol/L Normal 98-108 [facility] Comment on above: Performed By: #### L 500.2500 #### [facility] [address] [place], [address] CO2 [Moles/Vol] 20.4 mmol/L Low 21.0-32.0 [facility] Comment on above: Performed By: #### L 500.2500 #### [facility] [address] [place], [address] Creatinine [Mass/Vol] 0.84 mg/dL Normal 0.70-1.20 [facility] Comment on above: Performed By: #### L 500.2500 #### [facility] [address] [place], [address] ECRCL 37.73 ml/min Low 50-250 [facility] Comment on above: Performed By: #### L 500.2500 #### [facility] [address] [place], [address] GAP 11 Normal 5-15 [facility] Comment on above: Performed By: #### L 500.2500 #### [facility] [address] [place], [address] GFR/1.73 sq M.predicted among non-blacks MDRD (S/P/Bld) [Vol rate/Area] 70 mL/min/{1.73_m2} Normal >60 [facility] Comment on above: Result Comment: mL/m in/1.73m2 CKD-EPI Creatinine Equation (2020) Performed By: #### L 500.2500 #### [facility] [address] [place], [address] Glucose [Mass/Vol] 138 mg/dL High 70-99 [facility] Comment on above: Performed By: #### L 500.2500 #### [facility] [address] [place], [address] Potassium [Moles/Vol] 4.3 mmol/L Normal 3.3-5.1 [facility] Comment on above: Performed By: #### L 500.2500 #### [facility] [address] [place], [address] Sodium [Moles/Vol] 134 mmol/L Normal 133-145 [facility] Comment on above: Performed By: #### L 500.2500 #### [facility] [address] [place], [address] Urea nitrogen [Mass/Vol] 27 mg/dL High 4-19 [facility] Comment on above: Performed By: #### L 500.2500 #### [facility] [address] [place], [address] HH, Hemoglobin AND Hematocri ton 11-19-2024 Hematocrit (Bld) [Volume fraction] 30.9 % Low 37-47 [facility] Comment on above: Performed By: #### L 500.2500 #### [facility] [address] [place], [address] Hemoglobin (Bld) [Mass/Vol] 10.7 g/dL Low 12.0-15.0 [facility] Comment on above: Performed By: #### L 500.2500 #### [facility] [address] [place], [address] Basic Metabolic Profile (BMP )on 11-18-2024 BUN/CRE 33.7 RATIO High 10-20 [facility] Comment on above: Performed By: #### L 500.2500 #### [facility] [address] [place], [address] Calcium [Mass/Vol] 8.9 mg/dL Normal 7.6-11.0 [facility] Comment on above: Performed By: #### L 500.2500 #### [facility] [address] [place], [address] Chloride [Moles/Vol] 104 mmol/L Normal 98-108 [facility] Comment on above: Performed By: #### L 500.2500 #### [facility] [address] [place], [address] CO2 [Moles/Vol] 20.1 mmol/L Low 21.0-32.0 [facility] Comment on above: Performed By: #### L 500.2500 #### [facility] [address] [place], [address] Creatinine [Mass/Vol] 0.94 mg/dL Normal 0.70-1.20 [facility] Comment on above: Performed By: #### L 500.2500 #### [facility] [address] [place], [address] ECRCL 34.29 ml/min Low 50-250 [facility] Comment on above: Performed By: #### L 500.2500 #### [facility] [address] [place], [address] GAP 10 Normal 5-15 [facility] Comment on above: Performed By: #### L 500.2500 #### [facility] [address] [place], [address] GFR/1.73 sq M.predicted among non-blacks MDRD (S/P/Bld) [Vol rate/Area] 61 mL/min/{1.73_m2} Normal >60 [facility] Comment on above: Result Comment: mL/m in/1.73m2 CKD-EPI Creatinine Equation (2020) Performed By: #### L 500.2500 #### [facility] [address] [place], [address] Glucose [Mass/Vol] 101 mg/dL High 70-99 [facility] Comment on above: Performed By: #### L 500.2500 #### [facility] [address] [place], [address] Potassium [Moles/Vol] 4.3 mmol/L Normal 3.3-5.1 [facility] Comment on above: Performed By: #### L 500.2500 #### [facility] [address] [place], [address] Sodium [Moles/Vol] 134 mmol/L Normal 133-145 [facility] Comment on above: Performed By: #### L 500.2500 #### [facility] [address] [place], [address] Urea nitrogen [Mass/Vol] 32 mg/dL High 4-19 [facility] Comment on above: Performed By: #### L 500.2500 #### [facility] [address] [place], [address] Basic Metabolic Profile (BMP )on 11-16-2024 BUN/CRE 18.5 RATIO Normal 10-20 [facility] Comment on above: Performed By: #### L 509.6001 #### [facility] [address] [place], [address] Calcium [Mass/Vol] 9.3 mg/dL Normal 7.6-11.0 [facility] Comment on above: Performed By: #### L 509.6001 #### [facility] [address] [place], [address] Chloride [Moles/Vol] 95 mmol/L Low 98-108 [facility] Comment on above: Performed By: #### L 509.6001 #### [facility] [address] [place], [address] CO2 [Moles/Vol] 21.4 mmol/L Normal 21.0-32.0 [facility] Comment on above: Performed By: #### L 509.6001 #### [facility] [address] [place], [address] Creatinine [Mass/Vol] 0.91 mg/dL Normal 0.70-1.20 [facility] Comment on above: Performed By: #### L 509.6001 #### [facility] [address] [place], [address] ECRCL 35.42 ml/min Low 50-250 [facility] Comment on above: Performed By: #### L 509.6001 #### [facility] [address] [place], [address] GAP 11 Normal 5-15 [facility] Comment on above: Performed By: #### L 509.6001 #### [facility] [address] [place], [address] GFR/1.73 sq M.predicted among non-blacks MDRD (S/P/Bld) [Vol rate/Area] 64 mL/min/{1.73_m2} Normal >60 [facility] Comment on above: Result Comment: mL/m in/1.73m2 CKD-EPI Creatinine Equation (2020) Performed By: #### L 509.6001 #### [facility] [address] [place], [address] Glucose [Mass/Vol] 103 mg/dL High 70-99 [facility] Comment on above: Performed By: #### L 509.6001 #### [facility] [address] [place], [address] Potassium [Moles/Vol] 4.5 mmol/L Normal 3.3-5.1 [facility] Comment on above: Performed By: #### L 509.6001 #### [facility] [address] [place], [address] Sodium [Moles/Vol] 126 mmol/L Low 133-145 [facility] Comment on above: Performed By: #### L 509.6001 #### [facility] [address] [place], [address] Urea nitrogen [Mass/Vol] 17 mg/dL Normal 4-19 [facility] Comment on above: Performed By: #### L 509.6001 #### [facility] [address] [place], [address] L509.6001on 11-16-2024 CORTISOL 11.40 ug/dL Normal 6.02-18.40 [facility] Comment on above: Performed By: #### L 509.6001 #### [facility] [address] [place], [address] Serum or plasma cortisol silvio surement (mass/volume)Ordered By: Jo-Ann Arias on 11-16-2024 Cortisol [Mass/Vol] 11.40 ug/dL 6.02-18.40 [facility] Basic Metabolic Profile (BMP )on 11-15-2024 BUN/CRE 18.3 RATIO Normal 10-20 [facility] Comment on above: Performed By: #### L 500.2500 #### [facility] [address] [place], [address] Calcium [Mass/Vol] 9.1 mg/dL Normal 7.6-11.0 [facility] Comment on above: Performed By: #### L 500.2500 #### [facility] [address] [place], [address] Chloride [Moles/Vol] 92 mmol/L Low 98-108 [facility] Comment on above: Performed By: #### L 500.2500 #### [facility] [address] [place], [address] CO2 [Moles/Vol] 22.8 mmol/L Normal 21.0-32.0 [facility] Comment on above: Performed By: #### L 500.2500 #### [facility] [address] [place], [address] Creatinine [Mass/Vol] 0.91 mg/dL Normal 0.70-1.20 [facility] Comment on above: Performed By: #### L 500.2500 #### [facility] [address] [place], [address] ECRCL 35.42 ml/min Low 50-250 [facility] Comment on above: Performed By: #### L 500.2500 #### [facility] [address] [place], [address] GAP 10 Normal 5-15 [facility] Comment on above: Performed By: #### L 500.2500 #### [facility] [address] [place], [address] GFR/1.73 sq M.predicted among non-blacks MDRD (S/P/Bld) [Vol rate/Area] 64 mL/min/{1.73_m2} Normal >60 [facility] Comment on above: Result Comment: mL/m in/1.73m2 CKD-EPI Creatinine Equation (2020) Performed By: #### L 500.2500 #### [facility] [address] [place], [address] Glucose [Mass/Vol] 97 mg/dL Normal 70-99 [facility] Comment on above: Performed By: #### L 500.2500 #### [facility] [address] [place], [address] Potassium [Moles/Vol] 4.7 mmol/L Normal 3.3-5.1 [facility] Comment on above: Performed By: #### L 500.2500 #### [facility] [address] [place], [address] Sodium [Moles/Vol] 124 mmol/L Low 133-145 [facility] Comment on above: Performed By: #### L 500.2500 #### [facility] [address] [place], [address] Urea nitrogen [Mass/Vol] 17 mg/dL Normal 4-19 [facility] Comment on above: Performed By: #### L 500.2500 #### [facility] [address] [place], [address] Bilirubin, totalOrdered By: Jo-Ann Arias on 11-13-2024 Bilirubin [Mass/Vol] 0.71 mg/dL 0.00-1.30 [facility] CBC-Complete Blood Cnt No Di ffon 11-13-2024 Erythrocyte distribution width (RBC) [Ratio] 13.2 % Normal 11.6-14.6 [facility] Comment on above: Performed By: #### L 500.2500 #### [facility] [address] [place], [address] Hematocrit (Bld) [Volume fraction] 30.8 % Low 37-47 [facility] Comment on above: Performed By: #### L 500.2500 #### [facility] [address] [place], [address] Hemoglobin (Bld) [Mass/Vol] 11.1 g/dL Low 12.0-15.0 [facility] Comment on above: Performed By: #### L 500.2500 #### [facility] [address] [place], [address] MCH (RBC) [Entitic mass] 33.3 pg High 27.0-32.0 [facility] Comment on above: Performed By: #### L 500.2500 #### [facility] [address] [place], [address] MCHC (RBC) [Mass/Vol] 36.0 g/dL Normal 32-36 [facility] Comment on above: Performed By: #### L 500.2500 #### [facility] [address] [place], [address] MCV (RBC) [Entitic vol] 92.5 fL Normal 81-99 [facility] Comment on above: Performed By: #### L 500.2500 #### [facility] [address] [place], [address] Platelet mean volume (Bld) [Entitic vol] 10.1 fL Normal 6.2-12.0 [facility] Comment on above: Performed By: #### L 500.2500 #### [facility] [address] [place], [address] Platelets (Bld) [#/Vol] 204 10*3/uL Normal 150-450 [facility] Comment on above: Performed By: #### L 500.2500 #### [facility] [address] [place], [address] RBC (Bld) [#/Vol] 3.33 10*6/uL Low 4.2-5.4 [facility] Comment on above: Performed By: #### L 500.2500 #### [facility] [address] [place], [address] RDW SD 44.3 fl High 35.1-43.9 [facility] Comment on above: Performed By: #### L 500.2500 #### [facility] [address] [place], [address] WBC (Bld) [#/Vol] 7.0 10*3/uL Normal 4.4-11.0 [facility] Comment on above: Performed By: #### L 500.2500 #### [facility] [address] [place], [address] Comprehensive Metabolic Prof ilon 11-13-2024 Albumin [Mass/Vol] 3.9 g/dL Normal 3.4-4.8 [facility] Comment on above: Performed By: #### L 500.2500 #### [facility] [address] [place], [address] Albumin/Globulin [Mass ratio] 1.8 {ratio} Normal 0.9-2.4 [facility] Comment on above: Performed By: #### L 500.2500 #### [facility] [address] [place], [address] ALK PHOS 81 U/L Normal 35-104 [facility] Comment on above: Performed By: #### L 500.2500 #### [facility] [address] [place], [address] ALT [Catalytic activity/Vol] 82 U/L High <=34 [facility] Comment on above: Performed By: #### L 500.2500 #### [facility] [address] [place], [address] AST [Catalytic activity/Vol] 57 U/L High <=31 [facility] Comment on above: Performed By: #### L 500.2500 #### [facility] [address] [place], [address] Bilirubin [Mass/Vol] 0.71 mg/dL Normal 0.00-1.30 [facility] Comment on above: Performed By: #### L 500.2500 #### [facility] [address] [place], [address] BUN/CRE 22.2 RATIO High 10-20 [facility] Comment on above: Performed By: #### L 500.2500 #### [facility] [address] [place], [address] Calcium [Mass/Vol] 9.4 mg/dL Normal 7.6-11.0 [facility] Comment on above: Performed By: #### L 500.2500 #### [facility] [address] [place], [address] Chloride [Moles/Vol] 95 mmol/L Low 98-108 [facility] Comment on above: Performed By: #### L 500.2500 #### [facility] [address] [place], [address] CO2 [Moles/Vol] 22.0 mmol/L Normal 21.0-32.0 [facility] Comment on above: Performed By: #### L 500.2500 #### [facility] [address] [place], [address] Creatinine [Mass/Vol] 0.89 mg/dL Normal 0.70-1.20 [facility] Comment on above: Performed By: #### L 500.2500 #### [facility] [address] [place], [address] ECRCL 36.21 ml/min Low 50-250 [facility] Comment on above: Performed By: #### L 500.2500 #### [facility] [address] [place], [address] GAP 10 Normal 5-15 [facility] Comment on above: Performed By: #### L 500.2500 #### [facility] [address] [place], [address] GFR/1.73 sq M.predicted among non-blacks MDRD (S/P/Bld) [Vol rate/Area] 66 mL/min/{1.73_m2} Normal >60 [facility] Comment on above: Result Comment: mL/m in/1.73m2 CKD-EPI Creatinine Equation (2020) Performed By: #### L 500.2500 #### [facility] [address] [place], [address] Globulin (S) [Mass/Vol] 2.2 g/dL Normal 2.2-4.2 [facility] Comment on above: Performed By: #### L 500.2500 #### [facility] [address] [place], [address] Glucose [Mass/Vol] 95 mg/dL Normal 70-99 [facility] Comment on above: Performed By: #### L 500.2500 #### [facility] [address] [place], [address] Potassium [Moles/Vol] 4.7 mmol/L Normal 3.3-5.1 [facility] Comment on above: Performed By: #### L 500.2500 #### [facility] [address] [place], [address] Sodium [Moles/Vol] 127 mmol/L Low 133-145 [facility] Comment on above: Performed By: #### L 500.2500 #### [facility] [address] [place], [address] T PROT 6.1 g/dL Normal 5.9-8.4 [facility] Comment on above: Performed By: #### L 500.2500 #### [facility] [address] [place], [address] Urea nitrogen [Mass/Vol] 20 mg/dL High 4-19 [facility] Comment on above: Performed By: #### L 500.2500 #### [facility] [address] [place], [place], [id number] Laboratory - Chemistry and C hemistry - challengeOrdered By: Jo-Ann Hsiehjenny on 11-13-2024 AST [Catalytic activity/Vol] 57 U/L High <32 [facility] Magnesiumon 11-13-2024 Magnesium [Mass/Vol] 2.0 mg/dL Normal 1.5-2.2 [facility] Comment on above: Performed By: #### L 500.2500 #### [facility] [address] [place], [place], [address] Magnesium measurement (mass/ volume)Ordered By: Jo-Ann Hugo on 11-13-2024 Magnesium (Unsp spec) [Mass/Vol] 2.0 mg/dL 1.5-2.2 [facility] Osmolality, Serumon 11-14-19 25 OSMOLALITY,SER 271 mOsm/KG Low 280-301 [facility] Comment on above: Performed By: #### L 500.2500 #### [facility] [address] [place], [place], [id number] Osmolality, Urineon 11-14-19 25 OSMOLALITY,UR 591 mOsm/KG Normal [facility] Comment on above: Result Comment: Normal Urine Reference Ranges Random: 50 - 1200 mOsm/kg H20 depending on fluid intake Random: >850 mOsm/kg after 12 hour fluid restriction 24 hour: 300 - 900 mOsm/kg H2O Performed By: #### L 500.2500 #### [facility] [address] [place], [place], [address] Phosphoruson 11-13-2024 Phosphate [Mass/Vol] 3.9 mg/dL Normal 2.7-4.5 [facility] Comment on above: Performed By: #### L 500.2500 #### [facility] [address] [place], [place], [address] Serum globulin measurementOr dered By: Jo-Ann Arias on 11-13-2024 Globulin (S) [Mass/Vol] 2.2 g/dL 2.2-4.2 [facility] Serum or plasma alanine oliver otransferase (ALT) measurementOrdered By: Jo-Ann Hsiehjenny on 11-13-2024 ALT [Catalytic activity/Vol] 82 U/L High <35 [facility] Serum or plasma albumin/glob ulin mass ratioOrdered By: Jo-Ann Hsiehjenny on 11-13-2024 Albumin/Globulin [Mass ratio] 1.8 {ratio} 0.9-2.4 [facility] Serum or plasma alkaline brenna sphatase measurementOrdered By: Jo-Ann Hsiehjenny on 11-13-2024 ALP [Catalytic activity/Vol] 81 U/L 35-104 [facility] TSH DL <= 0.005 mIU/L QnOrde red By: Jo-Ann Hsiehjenny on 11-13-2024 TSH Qn 1.990 uIU/mL 0.300-4.200 [facility] Thyroid Stim Hormone (TSH)on 11-13-2024 TSH 1.990 uIU/mL Normal 0.300-4.200 [facility] Comment on above: Performed By: #### L 509.6001 #### [facility] [address] [place], [address] Total proteinOrdered By: Alyssa Arias on 11-13-2024 Protein [Mass/Vol] 6.1 g/dL 5.9-8.4 [facility] Urine Sodiumon 11-13-2024 Sodium (U) [Moles/Vol] 89 mmol/L Normal Not Establ. [facility] Comment on above: Performed By: #### L 500.2500 #### [facility] [address] [facility] [place], [address] CBC,PLATELETSon 11-12-2024 Hematocrit (Bld) [Volume fraction] 30.0 % Low 34.9-44.3 [facility] Comment on above: Performed By: #### [facility] #### [facility] (DEFAULT) [address] [place] [address] Hemoglobin (Bld) [Mass/Vol] 10.6 g/dL Low 11.4-15.2 [facility] Comment on above: Performed By: #### H [facility] #### [facility] (DEFAULT) [address] [address] MCV (RBC) [Entitic vol] 92.9 fL Normal 79.6-97.7 O [facility] Comment on above: Performed By: #### H [facility] #### [facility] (DEFAULT) [address] [address] Mean Cell Hgb 32.8 pg Normal 25.9-33.9 [facility] Comment on above: Performed By: #### H [facility] #### [facility] (DEFAULT) [address] [address] Mean Cell Hgb Conc 35.3 g/dL Normal 31.4-35.9 [facility] Comment on above: Performed By: #### H EMOGC #### [facility] (DEFAULT) [address] [address] Platelet mean volume (Bld) [Entitic vol] 10.2 fL Normal 8.5-12.2 [facility] Comment on above: Performed By: #### H EMOGC #### [facility] (DEFAULT) [address] [address] Platelets (Bld) [#/Vol] 195 10*3/uL Normal 150-393 [facility] Comment on above: Performed By: #### H EMOGC #### [facility] (DEFAULT) [address] [address] RBC (Bld) [#/Vol] 3.23 10*6/uL Low 3.91-5.04 [facility] Comment on above: Performed By: #### H EMOGC #### [facility] (DEFAULT) [address] [address] RBC Distribution 13.2 % Normal 10.8-14.9 [facility] Comment on above: Performed By: #### H EMOGC #### [facility] (DEFAULT) [address] [place] [address] WBC (Bld) [#/Vol] 6.18 10*3/uL Normal 3.99-11.19 [facility] Comment on above: Performed By: #### H [facility] #### [facility] (DEFAULT) [address] [place] [address] CHEM 7 (LYTES,BUN,CREA,GLUC) on 11-12-2024 Anion gap [Moles/Vol] 12 mmol/L Normal 7-17 [facility] Comment on above: Performed By: #### C HM7 #### [facility] (DEFAULT) [address] [place] [address] Chloride [Moles/Vol] 99 mmol/L Normal 98-108 [facility] Comment on above: Performed By: #### C HM7 #### [facility] (DEFAULT) [address] [place] [address] CO2 [Moles/Vol] 25 mmol/L Normal 21-31 [facility] Comment on above: Performed By: #### C HM7 #### [facility] (DEFAULT) [address] [place] [address] Creatinine [Mass/Vol] 0.89 mg/dL Normal 0.50-1.20 [facility] Comment on above: Performed By: #### C HM7 #### [facility] (DEFAULT) [address] [place] [address] GFR/1.73 sq M.predicted among non-blacks MDRD (S/P/Bld) [Vol rate/Area] 65 mL/min/{1.73_m2} Normal >=60 [facility] Comment on above: Result Comment: Repo rted eGFR is based on the CKD-EPI 2020 equation using creatinine, age, and sex. Performed By: #### C HM7 #### [facility] (DEFAULT) [address] [place] [address] Glucose [Mass/Vol] 99 mg/dL Normal Nonfastin -179 mg/dL; Fastin-99 [facility] Comment on above: Performed By: #### C HM7 #### [facility] (DEFAULT) [address] [place] [address] Osmolality [Osmolality] 278 mosm/kg Normal 278-305 [facility] Comment on above: Performed By: #### C HM7 #### [facility] (DEFAULT) [address] [place] [address] Potassium [Moles/Vol] 4.5 mmol/L Normal 3.5-5.0 [facility] Comment on above: Performed By: #### C HM7 #### [facility] (DEFAULT) [address] [place] [address] Sodium [Moles/Vol] 131 mmol/L Low 135-145 [facility] Comment on above: Performed By: #### C HM7 #### [facility] (DEFAULT) [address] [place] [address] Urea nitrogen [Mass/Vol] 16 mg/dL Normal 7-25 [facility] Comment on above: Performed By: #### C HM7 #### [facility] (DEFAULT) [address] [place] [address]69 Urea nitrogen/Creatinine [Mass ratio] 18 mg/mg Normal [facility] Comment on above: Performed By: #### C HM7 #### [facility] (DEFAULT) [address] [place] [address] Cardiac echo study Procedure Ordered By: Shirlene Marrero on 11-12-2024 Ao ASC index 2.1 cm/m2 [facility] Work Phone: [phone] Ao peak vika 2.71 m/s [facility] Work Phone: [phone] Ao SOV index 1.88 cm/m2 [facility] Work Phone: [phone] Ao VTI 63.7 cm [facility] Work Phone: AR Max Vika 4.09 m/s [facility] Work Phone: [phone] Ascending aorta 2.9 cm [facility] Work Phone: [phone] AV LVOT peak gradient 9 mmHg [facility] Work Phone: [phone] AV mean gradient 15 mmHg [facility] Work Phone: [phone] AV peak gradient 29 mmHG [facility] Work Phone: [phone] AV regurgitation pressure 1/2 time 468 ms [facility] Work Phone: [phone] AV valve area 1.38 cm2 [facility] Work Phone: [phone] AV Velocity Ratio 0.54 [facility] Work Phone: [phone] JULIUS (continuity Vmax) 1.37 cm2 [facility] Work Phone: [phone] JULIUS (continuity VTI) 1.38 cm2 [facility] Work Phone: [phone] JULIUS index (continuity Vmax) 0.99 m/s [facility] Work Phone: [phone] JULIUS index (continuity VTI) 1 cm2/m2 [facility] Work Phone: [phone] Avg e' pk vika 0.06 m/s [facility] Work Phone: [phone] Avg E/e' ratio 15.98 [facility] Work Phone: [phone] Body surface area Derived from formula 1.38 m2 [facility] Work Phone: [phone] DI (Vmax) 0.54 [facility] Work Phone: [phone] DI (VTI) 0.54 m/2 [facility] Work Phone: [phone] E wave decelartion time 209 msec [facility] Work Phone: [phone] e' lateral pk vika 0.0729 m/s [facility] Work Phone: [phone] e' lateral pk [facility] 0.07 [facility]: [phone] e' septal pk vika 0.0511 m/s [facility] Work Phone: [phone] e' septal pk vika 0.05 m/s [facility] Work Phone: [phone] E/A ratio 0.73 [facility] Work Phone: [phone] E/e' lateral ratio 13.17 [facility] Work Phone: [phone] E/e' septal ratio 18.79 [facility] Work Phone: [phone] Echo EF Estimated 55 % [facility] Work Phone: [phone] EST RAP 3 [facility]: [phone] EST RVSP 25 mmHg [facility] Work Phone: [phone] FS 47 % [facility] Work Phone: [phone] IVC ostium 1.5 cm [facility] Work Phone: [phone] IVS 0.9 cm [facility] Work Phone: [phone] LA ESV BP (MOD) 60 mL [facility] Work Phone: [phone] LA ESV BP (MOD) index 43 mL/m2 [facility] Work Phone: [phone] LA ESV SP 2CH (MOD) 46 mL [facility] Work Phone: [phone] LA ESV SP 4CH (MOD) 64 mL [facility] Work Phone: [phone] LV mass 141.91 g [facility] Work Phone: [phone] LV Mass Index 102.8 g/m2 [facility] Work Phone: [phone] LV RWT 0.33 [facility] Work Phone: [phone] LVIDD 4.9 cm [facility] Work Phone: [phone] LVIDS 2.6 cm [facility] Work Phone: [phone] LVOT area 2.54 cm2 [facility] Phone: [phone] LVOT diameter 1.8 cm [facility] Work Phone: [phone] LVOT peak vika 1.46 m/s [facility] Work Phone: [phone] LVOT peak VTI 34.5 cm [facility] Work Phone: [phone] LVOT stroke volume 88 cm3 [facility] Phone: [phone] LVOT stroke volume index 63.59 ml/m2 [facility] Work Phone: [phone] MV pk A vika 1.32 m/s [facility] Work Phone: [phone] MV pk E vika 0.96 m/s [facility] Work Phone: [phone] MV stenosis pressure 1/2 time 61 ms [facility] Work Phone: [phone] MV valve area p 1/2 method 3.61 cm2 [facility] Work Phone: [phone] [facility] AV VTI RATIO PRE STRESS 0.54 [facility] Work Phone: [phone] [facility] RVOT VTI RATIO 0.79 [facility] Work Phone: [phone] PV mean gradient 4 [facility]: [phone] PV peak gradient 6 mmHg [facility] Work Phone: [phone] PV PK VIKA 1.22 m/s [facility] Work Phone: [phone] PV VTI 29.8 cm [facility] Work Phone: [phone] PW 0.8 cm [facility] Work Phone: [phone] RA vol index 4CH (MOD) 12.32 mL/m2 [facility] Work Phone: Right atrium volume 4 chamber method of disks 17 mL [facility] Work Phone: [phone] RV basal diam 3.7 cm [facility] Work Phone: [phone] RV S' 13.1 cm/s [facility] Work Phone: RVOT peak gradient 4 mmHg [facility] Work Phone: RVOT peak vika 0.97 m/s [facility] Work Phone: RVOT peak VTI 23.5 cm [facility] Work Phone: Sinus 2.6 cm [facility] Work Phone: Stroke Volume 88 cm/mL [facility] Work Phone: Stroke volume index [facility]: TAPSE 2.23 cm [facility] Work Phone: TR pk grad 22 mmHg [facility] Work Phone: TR pk vika 2.33 m/s [facility] Work Phone: [facility] Work Phone: Cardiac echo study Procedure on [...] and technically difficult study. Imaging system used: reportbrain. Indications Indications for study: murmur. Wall Scoring Score Index: 1.00 The left ventricular wall motion is normal. [facility] Radiology Study observation (narrative) [facility] ECHOCARDIOGRAMon 11-12-2024 Echocardiography Normal left ventricu lar size with mild asymmetric mid septal hypertrophy (max thickness 1.3 cm). Normal systolic function, LVEF 55-60%. Grade II diastolic dysfunction. Normal right ventricular size with normal systolic function. Mildly calcified aortic valve leaflets with mild aortic stenosis as well as mild to moderate central aortic regurgitation. Normal RVSP estimated at 25 mmHg. Table formatting from the original result was not included. Images from the original result were not included. [facility] Facility [facility] Patient Information Patient Name Saarh Mcguire Legal Sex Female Indication for Exam Priority: Routine Dx: Murmur [R01.1 (ICD-10-CM)] Order Question Reason for Exam systolic murmur Interpretation Summary Result History is available. Normal left ventricular size with mild asymmetric mid septal hypertrophy (max thickness 1.3 cm). Normal systolic function, LVEF 55-60%. Grade II diastolic dysfunction. Normal right ventricular size with normal systolic function. Mildly calcified aortic valve leaflets with mild aortic stenosis as well as mild to moderate central aortic regurgitation. Normal RVSP estimated at 25 mmHg. Findings Left Ventricle Chamber size is normal. End-diastolic [...] enlarged. Right Atrium Chamber size is normal. Septum The atrial septum is normal. No evidence of patent foramen ovale determined by color flow. Mitral Valve Mild anterior and posterior leaflet thickening. Leaflet mobility is normal. Moderate posterior annular calcification. Trace regurgitation. No valve stenosis. Aortic Valve Trileaflet valve. Leaflet mobility is normal. Mild to moderate central regurgitation. Mild stenosis. LVOT diameter: 1.80 cm. Mean gradient: 15 mmHg. Dimensionless Index by VTI: 0.54. Dimensionless Index by VMAX: 0.54. Valve area continuity VMAX: 1.37 cm2. Valve area continuity VTI: 1.38 cm2. Stroke volume index: 63.59 ml/m2. The valve Vmax is 2.71 m/s. Tricuspid Valve Normal leaflets. Leaflet mobility is normal. Trace regurgitation. No stenosis. No echo/Doppler evidence for pulmonary hypertension. Estimated right ventricular systolic pressure is 25 mmHg. Estimated right atrial pressure is 3.00 mmHg. Pulmonic Valve Trace regurgitation. No stenosis. Peak gradient is 6 mmHg. Mean gradient is 4 mmHg. Aorta No dilation to extent seen. SOV: 2.60 cm. Ascendin.90 cm. Pericardium No pericardial effusion. IVC/SVC The inferior vena cava is normal in size. The inferior vena cava structure is normal. Reading Providers Reading Role Read Date Shirlene Marrero MD [facility] [place], Test Director [facility] 11/12/2024 Wall Scoring Score Index: 1.00 The left ventricular wall motion is normal. Left Heart Measurements LV - Systole LVIDD 4.9 cm IVS 0.9 cm LVIDS 2.6 cm PW 0.8 cm LV RWT 0.33 LV Mass Index 102.8 g/m2 LV - Diastole MV pk E vika 0.96 m/s MV pk A vika 1.32 m/s E/A ratio 0.73 e' septal pk vika 0.05 m/s e' lateral pk vika 0.07 m/s Avg e' pk vika 0.06 m/s E/e' septal ratio 18.79 E/e' lateral ratio 13.17 Avg E/e' ratio 15.98 LV - HCM AV LVOT peak gradient 9 mmHg Left Atrium LA ESV SP 4CH (MOD) 64 mL LA ESV SP 2CH (MOD) 46 mL LA ESV BP (MOD) index 43 mL/m2 Right Heart Measurements RV - 2D RV basal diam 3.7 cm RV - Doppler TAPSE 2.23 cm RV S' 13.1 cm/s Right Atrium RA vol index 4CH (MOD) 12.32 mL/m2 EST RAP 3 mmHg [facility]els Aortic Root - End Diastolic Sinus 2.6 cm Ascending aorta 2.9 cm Inferior Vena Cava IVC ostium 1.5 cm Doppler Measurements - Aortic Valve Stenosis LVOT diameter 1.8 cm LVOT area 2.54 cm2 LVOT peak vika 1.46 m/s LVOT peak VTI 34.5 cm Stroke Volume 88 cm/mL Stroke volume index 64 Ao peak vika 2.71 m/s Ao VTI 63.7 cm AV peak gradient 29 mmHG AV mean gradient 15 mmHg DI (VTI) 0.54 m/2 DI (Vmax) 0.54 JULIUS (continuity Vmax) 1.37 cm2 JULIUS index (continuity Vmax) 0.99 m/s JULIUS (continuity VTI) 1.38 cm2 JULIUS index (continuity VTI) 1 cm2/m2 LVOT stroke volume 88 cm3 LVOT stroke volume index 63.59 ml/m2 Regurgitation AV regurgitation pressure 1/2 time 468 ms PISA A (more content not included)... Normal [facility] Laboratory - Chemistry and C hemistry - challengeon 11-12-2024 Anion gap [Moles/Vol] 12 mmol/L 7 - 17 [facility] Chloride [Moles/Vol] 99 mmol/L 98 - 10 8 mmol/L [facility] CO2 [Moles/Vol] 25 mmol/L 21 - 31 mmol/L [facility] Creatinine [Mass/Vol] 0.89 mg/dL 0.50 - 1.20 mg/dL [facility] Glucose [Mass/Vol] 99 mg/dL 70 - 179 mg/dL [facility] Osmolality Calc [Osmolality] 278 [facility] Potassium [Moles/Vol] 4.5 mmol/L 3.5 - 5.0 mmol/L [facility] Sodium [Moles/Vol] 131 mmol/L Low 135 - 145 mmol/L [facility] Urea nitrogen [Mass/Vol] 16 mg/dL 7 - 25 mg/dL [facility] Urea nitrogen/Creatinine [Mass ratio] 18 mg/mg [facility] Laboratory - Hematology and Cell countson 11-12-2024 Erythrocyte distribution width (RBC) [Ratio] 13.2 % 10.8 - 14.9 % [facility] Hematocrit (Bld) [Volume fraction] 30 % Low 34.9 - 44.3 % [facility] Hemoglobin (Bld) [Mass/Vol] 10.6 g/dL Low 11.4 - 15.2 g/dL [facility] MCH (RBC) [Entitic mass] 32.8 pg 25.9 - 33.9 pg [facility] MCHC (RBC) [Mass/Vol] 35.3 g/dL 31.4 - 35.9 g/dL [facility] MCV (RBC) [Entitic vol] 92.9 fL 79.6 - 97.7 fL [facility] Platelet mean volume (Bld) [Entitic vol] 10.2 fL 8.5 - 12.2 fL [facility] Platelets (Bld) [#/Vol] 195 10*3/uL 150 - 393 K/uL [facility] RBC (Bld) [#/Vol] 3.23 10*6/uL Low [facility] WBC (Bld) [#/Vol] 6.18 10*3/uL 3.99 - 11. 19 K/uL [facility] No Panel Informationon 11-12 eGFR, CKD-EPI, Female 63 - PINF [facility] Comment on above: Reported eGFR is bas ed on the CKD-EPI 2020 equation using creatinine, age, and sex. Interpretation and review of laboratory results Abnormal [facility] Interpretation and review of laboratory results Abnormal [facility] CBC,PLATELETSon 11-11-2024 Hematocrit (Bld) [Volume fraction] 29.3 % Low 34.9-44.3 [facility] Comment on above: Performed By: #### M GA ALBERTO, TIANA, HFP #### [facility] (DEFAULT) [address] [place] [address] Hemoglobin (Bld) [Mass/Vol] 10.2 g/dL Low 11.4-15.2 [facility] Comment on above: Performed By: #### M GA ALBERTO, KARL7, HFP #### [facility] (DEFAULT) [address] [place] [address] MCV (RBC) [Entitic vol] 93.3 fL Normal 79.6-97.7 [facility] Comment on above: Performed By: #### M GO, IPB, CHM7, HFP #### [facility] (DEFAULT) [address] [place] [address]247 Mean Cell Hgb 32.5 pg Normal 25.9-33.9 [facility] Comment on above: Performed By: #### M GO, IPB, CHM7, HFP #### [facility] (DEFAULT) [address] [place] [address] 57751 Mean Cell Hgb Conc 34.8 g/dL Normal 31.4-35.9 [facility] Comment on above: Performed By: #### M GO, IPB, CHM7, HFP #### [facility] (DEFAULT) [address] [address] Platelet mean volume (Bld) [Entitic vol] 10.3 fL Normal 8.5-12.2 [facility] Comment on above: Performed By: #### M GO, IPB, CHM7, HFP #### [facility] (DEFAULT) [address] [place] [address]38 Platelets (Bld) [#/Vol] 193 10*3/uL Normal 150-393 [facility] Comment on above: Performed By: #### M GO, IPB, CHM7, HFP #### [facility] (DEFAULT) [address] [place] [address] RBC (Bld) [#/Vol] 3.14 10*6/uL Low 3.91-5.04 [facility] Comment on above: Performed By: #### M GO, IPB, CHM7, HFP #### [facility] (DEFAULT) [address] [address] RBC Distribution 13.2 % Normal 10.8-14.9 [facility] Comment on above: Performed By: #### M GO, IPB, CHM7, HFP #### [facility] (DEFAULT) [address] [place] [address]341 WBC (Bld) [#/Vol] 5.77 10*3/uL Normal 3.99-11.19 [facility] Comment on above: Performed By: #### M AG ALBERTO, CHM7, HFP #### [facility] (DEFAULT) [address] [place] [id number] CHEM 7 (LYTES,BUN,CREA,GLUC) on 11-11-2024 Anion gap [Moles/Vol] 12 mmol/L Normal 7-17 [facility] Comment on above: Performed By: #### GA FUNES, CHM7, HFP #### [facility] (DEFAULT) [address] [place] [address]377 Chloride [Moles/Vol] 98 mmol/L Normal 98-108 [facility] Comment on above: Performed By: #### GA FUNES, CHM7, HFP #### [facility] (DEFAULT) [address] [place] [address] CO2 [Moles/Vol] 24 mmol/L Normal 21-31 [facility] Comment on above: Performed By: #### GA FUNES, CHM7, HFP #### [facility] (DEFAULT) [address] [place] [address] Creatinine [Mass/Vol] 0.93 mg/dL Normal 0.50-1.20 [facility] Comment on above: Performed By: #### IDALIA FUNESB, CHM7, HFP #### [facility] (DEFAULT) [address] [place] [address]28 GFR/1.73 sq M.predicted among non-blacks MDRD (S/P/Bld) [Vol rate/Area] 62 mL/min/{1.73_m2} Normal >=60 [facility] Comment on above: Result Comment: Repo rted eGFR is based on the CKD-EPI 2020 equation using creatinine, age, and sex. Performed By: #### M GO, IPB, CHM7, HFP #### [facility] (DEFAULT) [address] [place] [address]240 Glucose [Mass/Vol] 95 mg/dL Normal Nonfastin -179 mg/dL; Fastin-99 [facility] Comment on above: Performed By: #### Harini ALBERTO IPB, CHM7, HFP #### [facility] (DEFAULT) [address] [place] [address] Osmolality [Osmolality] 275 mosm/kg Low 278-305 [facility] Comment on above: Performed By: #### Harini ALBERTO IPB, CHM7, HFP #### [facility] (DEFAULT) [address] [place] [address] Potassium [Moles/Vol] 4.3 mmol/L Normal 3.5-5.0 [facility] Comment on above: Performed By: #### IDALIA FUNESB, CHM7, HFP #### [facility] (DEFAULT) [address] [place] [address] 33595 Sodium [Moles/Vol] 130 mmol/L Low 135-145 [facility] Comment on above: Performed By: #### IDALIA FUNESB, CHM7, HFP #### [facility] (DEFAULT) [address] [place] [address]106 Urea nitrogen [Mass/Vol] 15 mg/dL Normal 7-25 [facility] Comment on above: Performed By: #### IDALIA FUNESB, CHM7, HFP #### [facility] (DEFAULT) [address] [place] [address]876 Urea nitrogen/Creatinine [Mass ratio] 16 mg/mg Normal [facility] Comment on above: Performed By: #### IDALIA FUNESB, CHM7, HFP #### [facility] (DEFAULT) [address] [place] [address] Laboratory - Chemistry and C hemistry - challengeon 11-11-2024 Anion gap [Moles/Vol] 12 mmol/L 7 - 17 mmol/L [facility] Chloride [Moles/Vol] 98 mmol/L 98 - 10 8 mmol/L [facility] CO2 [Moles/Vol] 24 mmol/L 21 - 31 mmol/L [facility] Creatinine [Mass/Vol] 0.93 mg/dL 0.50 - 1.20 mg/dL [facility] Glucose [Mass/Vol] 95 mg/dL 70 - 179 mg/dL [facility] Osmolality Calc [Osmolality] 275 Low [facility] Potassium [Moles/Vol] 4.3 mmol/L 3.5 - 5.0 mmol/L [facility] Sodium [Moles/Vol] 130 mmol/L Low 135 - 145 mmol/L [facility] Urea nitrogen [Mass/Vol] 15 mg/dL 7 - 25 mg/dL [facility] Urea nitrogen/Creatinine [Mass ratio] 16 mg/mg [facility] Laboratory - Hematology and Cell countson 11-11-2024 Erythrocyte distribution width (RBC) [Ratio] 13.2 % 10.8 - 14.9 % [facility] Hematocrit (Bld) [Volume fraction] 29.3 % Low 34.9 - 44.3 % [facility] Hemoglobin (Bld) [Mass/Vol] 10.2 g/dL Low 11.4 - 15.2 g/dL [facility] MCH (RBC) [Entitic mass] 32.5 pg 25.9 - 33.9 pg [facility] MCHC (RBC) [Mass/Vol] 34.8 g/dL 31.4 - 35.9 g/dL [facility] MCV (RBC) [Entitic vol] 93.3 fL 79.6 - 97.7 fL [facility] Platelet mean volume (Bld) [Entitic vol] 10.3 fL 8.5 - 12.2 fL [facility] Platelets (Bld) [#/Vol] 193 10*3/uL 150 - 393 K/uL [facility] RBC (Bld) [#/Vol] 3.14 10*6/uL Low [facility] WBC (Bld) [#/Vol] 5.77 10*3/uL 3.99 - 11. 19 K/uL [facility] No Panel Informationon 11-11 eGFR, CKD-EPI, Female 60 - PINF [facility] Comment on above: Reported eGFR is bas ed on the CKD-EPI 2020 equation using creatinine, age, and sex. Interpretation and review of laboratory results Abnormal [facility] Interpretation and review of laboratory results Abnormal [facility] CBC,PLATELETSon 11-10-2024 Hematocrit (Bld) [Volume fraction] 31.4 % Low 34.9-44.3 [facility] Comment on above: Performed By: #### GA FUNES, CHM7, HFP #### [facility] (DEFAULT) [address] [address] Hemoglobin (Bld) [Mass/Vol] 11.1 g/dL Low 11.4-15.2 [facility] Comment on above: Performed By: #### GA FUNES, CHM7, HFP #### [facility] (DEFAULT) [address] [address] MCV (RBC) [Entitic vol] 93.5 fL Normal 79.6-97.7 O [facility] Comment on above: Performed By: #### IDALIA FUNESB, CHM7, HFP #### [facility] (DEFAULT) [address] [place] [address] Mean Cell Hgb 33.0 pg Normal 25.9-33.9 [facility] Comment on above: Performed By: #### IDALIA FUNESB, CHM7, HFP #### [facility] (DEFAULT) [address] [address] Mean Cell Hgb Conc 35.4 g/dL Normal 31.4-35.9 [facility] Comment on above: Performed By: #### IDALIA FUNESB, CHM7, HFP #### [facility] (DEFAULT) [address] [place] [address] Platelet mean volume (Bld) [Entitic vol] 10.4 fL Normal 8.5-12.2 [facility] [facility] Comment on above: Performed By: #### M GO, IPB, CHM7, HFP #### [facility] (DEFAULT) [address] [place] [address] [id number] Platelets (Bld) [#/Vol] 205 10*3/uL Normal 150-393 [facility] Comment on above: Performed By: #### M GO, IPB, CHM7, HFP #### [facility] (DEFAULT) [address] [place] [address] [id number] RBC (Bld) [#/Vol] 3.36 10*6/uL Low 3.91-5.04 [facility] Comment on above: Performed By: #### M GO, IPB, CHM7, HFP #### [facility] (DEFAULT) [address] [place] [address] [id number] RBC Distribution 13.3 % Normal 10.8-14.9 [facility] Comment on above: Performed By: #### M GO, IPB, CHM7, HFP #### [facility] (DEFAULT) [address] [place] [address] 44917 WBC (Bld) [#/Vol] 9.67 10*3/uL Normal 3.99-11.19 [facility] Comment on above: Performed By: #### M GO, IPB, CHM7, HFP #### [facility] (DEFAULT) [address] [place] [address] [id number] CHEM 7 (LYTES,BUN,CREA,GLUC) on 11-10-2024 Anion gap [Moles/Vol] 13 mmol/L Normal 7-17 [facility] Comment on above: Performed By: #### M GO, IPB, CHM7, HFP #### [facility] (DEFAULT) [address] [place] [address] 31435 Chloride [Moles/Vol] 99 mmol/L Normal 98-108 [facility] Comment on above: Performed By: #### M GA ALBERTO, CHM7, HFP #### [facility] (DEFAULT) [address] [place] [address] 72170 CO2 [Moles/Vol] 25 mmol/L Normal 21-31 [facility] Comment on above: Performed By: #### M GA ALBERTO, CHM7, HFP #### [facility] (DEFAULT) [address] [place] [address] 60850 Creatinine [Mass/Vol] 0.78 mg/dL Normal 0.50-1.20 [facility] Comment on above: Performed By: #### GA FUNES, CHM7, HFP #### [facility] (DEFAULT) [address] [place] [address] 95858 GFR/1.73 sq M.predicted among non-blacks MDRD (S/P/Bld) [Vol rate/Area] 77 mL/min/{1.73_m2} Normal >=60 [facility] Comment on above: Result Comment: Repo rted eGFR is based on the CKD-EPI 2020 equation using creatinine, age, and sex. Performed By: #### GA FUNES, CHM7, HFP #### [facility] (DEFAULT) [address] [place] [address] 37586 Glucose [Mass/Vol] 96 mg/dL Normal Nonfastin -179 mg/dL; Fastin-99 [facility] Comment on above: Performed By: #### M GA ALBERTO, CHM7, HFP #### [facility] (DEFAULT) [address] [place] [address] 06733 Osmolality [Osmolality] 280 mosm/kg Normal 278-305 [facility] Comment on above: Performed By: #### M GA ALBERTO, CHM7, HFP #### [facility] (DEFAULT) [address] [place] [address] 27305 Potassium [Moles/Vol] 4.7 mmol/L Normal 3.5-5.0 [facility] Comment on above: Performed By: #### M GA ALBERTO, CHM7, HFP #### [facility] (DEFAULT) [address] [place] [address] Sodium [Moles/Vol] 132 mmol/L Low 135-145 [facility] Comment on above: Performed By: #### GA FUNES, CARLM7, HFP #### [facility] (DEFAULT) [address] [place] [address] 51167 Urea nitrogen [Mass/Vol] 16 mg/dL Normal 7-25 [facility] Comment on above: Performed By: #### GA FUNES, CHM7, HFP #### [facility] (DEFAULT) [address] [place] [address] 22352 Urea nitrogen/Creatinine [Mass ratio] 21 mg/mg Normal [facility] Comment on above: Performed By: #### GA FUNES, CHM7, HFP #### [facility] (DEFAULT) [address] [place] [address] 36146 Laboratory - Chemistry and C hemistry - challengeon 11-10-2024 Anion gap [Moles/Vol] 13 mmol/L 7 - 17 mmol/L [facility] Chloride [Moles/Vol] 99 mmol/L 98 - 10 8 mmol/L [facility] CO2 [Moles/Vol] 25 mmol/L 21 - 31 mmol/L [facility] Creatinine [Mass/Vol] 0.78 mg/dL 0.50 - 1.20 mg/dL [facility] Glucose [Mass/Vol] 96 mg/dL 70 - 179 mg/dL [facility] Osmolality Calc [Osmolality] 280 [facility] Potassium [Moles/Vol] 4.7 mmol/L 3.5 - 5.0 mmol/L [facility] Sodium [Moles/Vol] 132 mmol/L Low 135 - 145 mmol/L [facility] Urea nitrogen [Mass/Vol] 16 mg/dL 7 - 25 mg/dL [facility] Urea nitrogen/Creatinine [Mass ratio] 21 mg/mg [facility] Laboratory - Hematology and Cell countson 11-10-2024 Erythrocyte distribution width (RBC) [Ratio] 13.3 % 10.8 - 14.9 % [facility] Hematocrit (Bld) [Volume fraction] 31.4 % Low 34.9 - 44.3 % [facility] Hemoglobin (Bld) [Mass/Vol] 11.1 g/dL Low 11.4 - 15.2 g/dL [facility] MCH (RBC) [Entitic mass] 33 pg 25.9 - 33.9 pg [facility] MCHC (RBC) [Mass/Vol] 35.4 g/dL 31.4 - 35.9 g/dL [facility] MCV (RBC) [Entitic vol] 93.5 fL 79.6 - 97.7 fL [facility] Platelet mean volume (Bld) [Entitic vol] 10.4 fL 8.5 - 12.2 fL [facility] Platelets (Bld) [#/Vol] 205 10*3/uL 150 - 393 K/uL [facility] RBC (Bld) [#/Vol] 3.36 10*6/uL Low [facility] WBC (Bld) [#/Vol] 9.67 10*3/uL 3.99 - 11. 19 K/uL [facility] MR Brain WO and W contrast I [...] suggest recurrence. Stable remote right cerebellar infarct. [facility] Radiology Study observation (narrative) [facility] MRA Head vessels WO contrast on 11-10-2024 [...] of the brain is performed using 3D gvmq-xr-qiwxrj technique without intravenous contrast. Source images, as [...] of the brain is performed using 3D fiag-uq-wpbndd technique without intravenous contrast. Source images, as [...] segment of the bilateral posterior cerebral arteries. [facility] Radiology Study observation (narrative) [facility] MRA Head vessels WO contrast Ordered By: Morgan Fierro on 11-10-2024 [facility] Work Phone: MRA Neck vessels WO and [...] carotid or vertebral system in the neck. [facility] Radiology Study observation (narrative) [facility] MRI ANGIO NECK WITH AND WITH OUT [...] or vertebral system in the neck. Normal [facility] MRI ARTERIOGRAM BRAIN WITHOU T CONTRASTon 11-10-2024 MRI ARTERIOGRAM BRAIN WITHOUT CONTRAST EXAM: MRI ARTERIOGRAM BRAIN WITHOUT CONTRAST, 11/10/2024 11:55 AM COMPARISON: MRI BRAIN WITH AND WITHOUT CONTRAST November 10, 2024 CLINICAL INDICATIONS: 78 years Female Seizure work up TECHNIQUE: MR Angiography of the brain is performed using 3D ljab-py-hyrauu technique without intravenous contrast. Source images, as [...] of the bilateral posterior cerebral arteries. Normal [facility] MRI BRAIN WITH AND WITHOUT C [facility] 11-10-2024 MRI BRAIN WITH AND WITHOUT CONTRAST [...] recurrence. Stable remote right cerebellar infarct. Normal [facility] No Panel Informationon 11-10 [facility] eGFR, CKD-EPI, Female 75 - PINF [facility] Comment on above: Reported eGFR is bas ed on the CKD-EPI 2020 equation using creatinine, age, and sex. Interpretation and review of laboratory results Abnormal [facility] Interpretation and review of laboratory results Abnormal [facility] CBC,PLATELETSon 11-09-2024 Hematocrit (Bld) [Volume fraction] 28.5 % Low 34.9-44.3 [facility] Comment on above: Performed By: #### M GA ALBERTO, CARLM7, HFP #### [facility] (DEFAULT) [address] [place] [address] 03104 Hemoglobin (Bld) [Mass/Vol] 10.4 g/dL Low 11.4-15.2 [facility] Comment on above: Performed By: #### M GA ALBERTO, CHM7, HFP #### [facility] (DEFAULT) [address] [place] [address] 42211 MCV (RBC) [Entitic vol] 91.9 fL Normal 79.6-97.7 [facility] Comment on above: Performed By: #### M GO, IPB, CHM7, HFP #### [facility] (DEFAULT) [address] [place] [address] 96206 Mean Cell Hgb 33.5 pg Normal 25.9-33.9 [facility] Comment on above: Performed By: #### M GO, IPB, CHM7, HFP #### [facility] (DEFAULT) [address] [place] [address] 01542 Mean Cell Hgb Conc 36.5 g/dL High 31.4-35.9 [facility] Comment on above: Performed By: #### M GO, IPB, CHM7, HFP #### [facility] (DEFAULT) [address] [place] [address] 21687 Platelet mean volume (Bld) [Entitic vol] 10.4 fL Normal 8.5-12.2 [facility] Comment on above: Performed By: #### M GO, IPB, CHM7, HFP #### [facility] (DEFAULT) [address] [place] [address] 10375 Platelets (Bld) [#/Vol] 182 10*3/uL Normal 150-393 [facility] Comment on above: Performed By: #### M GO, IPB, CHM7, HFP #### [facility] (DEFAULT) [address] [address] RBC (Bld) [#/Vol] 3.10 10*6/uL Low 3.91-5.04 [facility] Comment on above: Performed By: #### M GO, IPB, CHM7, HFP #### [facility] (DEFAULT) [address] [place] [address] 23511 RBC Distribution 13.2 % Normal 10.8-14.9 [facility] Comment on above: Performed By: #### M GO, IPB, CHM7, HFP #### [facility] (DEFAULT) [address] [place] [address] 23375 WBC (Bld) [#/Vol] 6.17 10*3/uL Normal 3.99-11.19 [facility] Comment on above: Performed By: #### M IDALIA ALBERTOB, CHM7, HFP #### [facility] (DEFAULT) [address] [place] [address] [id number] CHEM 7 (LYTES,BUN,CREA,GLUC) on 11-09-2024 Anion gap [Moles/Vol] 11 mmol/L Normal 7-17 [facility] Comment on above: Performed By: #### IDALIA FUNESB, CHM7, HFP #### [facility] (DEFAULT) [address] [place] [address] 45119 Chloride [Moles/Vol] 100 mmol/L Normal 98-108 [facility] Comment on above: Performed By: #### IDALIA FUNESB, CHM7, HFP #### [facility] (DEFAULT) [address] [place] [address] 54190 CO2 [Moles/Vol] 26 mmol/L Normal 21-31 [facility] Comment on above: Performed By: #### IDALIA FUNESB, CHM7, HFP #### [facility] (DEFAULT) [address] [place] [address] 92368 Creatinine [Mass/Vol] 0.97 mg/dL Normal 0.50-1.20 [facility] Comment on above: Performed By: #### M REMY IPB, CHM7, HFP #### [facility] (DEFAULT) [address] [place] [address] 27004 GFR/1.73 sq M.predicted among non-blacks MDRD (S/P/Bld) [Vol rate/Area] 59 mL/min/{1.73_m2} Low >=60 [facility] Comment on above: Result Comment: Repo rted eGFR is based on the CKD-EPI 2020 equation using creatinine, age, and sex. Performed By: #### M GO, IPB, CHM7, HFP #### [facility] (DEFAULT) [address] [place] [address] 41556 Glucose [Mass/Vol] 110 mg/dL Normal Nonfastin -179 mg/dL; Fastin-99 [facility] Comment on above: Performed By: #### M REMY IPB, CHM7, HFP #### [facility] (DEFAULT) [address] [place] [address] 26918 Osmolality [Osmolality] 283 mosm/kg Normal 278-305 [facility] Comment on above: Performed By: #### Harini ALBERTO IPB, CHM7, HFP #### [facility] (DEFAULT) [address] [place] [address] 66558 Potassium [Moles/Vol] 4.2 mmol/L Normal 3.5-5.0 [facility] Comment on above: Performed By: #### Harini ALBERTO IPB, CHM7, HFP #### [facility] (DEFAULT) [address] [place] [address] 92115 Sodium [Moles/Vol] 133 mmol/L Low 135-145 [facility] Comment on above: Performed By: #### Harini ALBERTO IPB, CHM7, HFP #### [facility] (DEFAULT) [address] [place] [address] 38376 Urea nitrogen [Mass/Vol] 20 mg/dL Normal 7-25 [facility] Comment on above: Performed By: #### Harini ALBERTO IPB, CHM7, HFP #### [facility] (DEFAULT) [address] [place] [address] 84383 Urea nitrogen/Creatinine [Mass ratio] 21 mg/mg Normal [facility] Comment on above: Performed By: #### Harini ALBERTO IPB, CHM7, HFP #### [facility] (DEFAULT) [address] [place] [address] 09588 HEPATIC FUNCTION PANELon Albumin [Mass/Vol] 3.7 g/dL Normal 3.5-5.0 [facility] Comment on above: Performed By: #### M GO, IPB, CHM7, HFP #### [facility] (DEFAULT) [address] [place] [address] 85500 ALP [Catalytic activity/Vol] 64 U/L Normal 32-126 [facility] Comment on above: Performed By: #### M GO, IPB, CHM7, HFP #### [facility] (DEFAULT) [address] [place] [address] 39273 ALT [Catalytic activity/Vol] 64 U/L High 9-48 [facility] Comment on above: Performed By: #### M GO, IPB, CHM7, HFP #### [facility] (DEFAULT) [address] [place] [address] 37651 AST [Catalytic activity/Vol] 41 U/L High 10-39 [facility] Comment on above: Performed By: #### M GO, IPB, CHM7, HFP #### [facility] (DEFAULT) [address] [place] [address] 65464 Bilirubin [Mass/Vol] 1.0 mg/dL Normal <1.5 [facility] Comment on above: Performed By: #### M GO, IPB, CHM7, HFP #### [facility] (DEFAULT) [address] [place] [address] 00564 Bilirubin.indirect [Mass/Vol] 0.2 mg/dL Normal <0.3 [facility] Comment on above: Performed By: #### M GO, IPB, CHM7, HFP #### [facility] (DEFAULT) [address] [place] [address] 40462 Protein [Mass/Vol] 5.9 g/dL Low 6.4-8.3 [facility] Comment on above: Performed By: #### M GO, IPB, CHM7, HFP #### [facility] (DEFAULT) [address] [place] [address] 04477 Laboratory - Chemistry and C hemistry - challengeon 11-09-2024 Albumin [Mass/Vol] 3.7 g/dL 3.5 - 5.0 g/dL [facility] ALP [Catalytic activity/Vol] 64 U/L 32 - 126 U/L [facility] ALT [Catalytic activity/Vol] 64 U/L High 9 - 48 U/L [facility] Anion gap [Moles/Vol] 11 mmol/L 7 - 17 mmol/L [facility] AST [Catalytic activity/Vol] 41 U/L High 10 - 39 U/L [facility] Bilirubin [Mass/Vol] 1 mg/dL NINF - 1.5 mg/dL [facility] Bilirubin.direct [Mass/Vol] 0.2 mg/dL NINF - 0.3 mg/dL [facility] Chloride [Moles/Vol] 100 mmol/L 98 - 10 8 mmol/L [facility] CO2 [Moles/Vol] 26 mmol/L 21 - 31 mmol/L [facility] Creatinine [Mass/Vol] 0.97 mg/dL 0.50 - 1.20 mg/dL [facility] Glucose [Mass/Vol] 110 mg/dL 70 - 179 mg/dL [facility] Magnesium [Mass/Vol] 1.9 mg/dL 1.6 - 2 .6 mg/dL [facility] Osmolality Calc [Osmolality] 283 [facility] Phosphate [Mass/Vol] 3.6 mg/dL 2.2 - 4 .6 mg/dL [facility] Potassium [Moles/Vol] 4.2 mmol/L 3.5 - 5.0 mmol/L [facility] Protein [Mass/Vol] 5.9 g/dL Low 6.4 - 8.3 g/dL [facility] Sodium [Moles/Vol] 133 mmol/L Low 135 - 145 mmol/L [facility] Urea nitrogen [Mass/Vol] 20 mg/dL 7 - 25 mg/dL [facility] Urea nitrogen/Creatinine [Mass ratio] 21 mg/mg [facility] Laboratory - Coagulationon 0 11-09-2024 aPTT Coag (PPP) [Time] 31.6 s [facility] INR Coag (Bld) [Relative time] 1.1 {INR} 0.9 - 1.1 [facility] PT Coag (PPP) [Time] 14 s [facility] Laboratory - Hematology and Cell countson 11-09-2024 Erythrocyte distribution width (RBC) [Ratio] 13.2 % 10.8 - 14.9 % [facility] Hematocrit (Bld) [Volume fraction] 28.5 % Low 34.9 - 44.3 % [facility] Hemoglobin (Bld) [Mass/Vol] 10.4 g/dL Low 11.4 - 15.2 g/dL [facility] MCH (RBC) [Entitic mass] 33.5 pg 25.9 - 33.9 pg [facility] MCHC (RBC) [Mass/Vol] 36.5 g/dL High 31.4 - 35.9 g/dL [facility] MCV (RBC) [Entitic vol] 91.9 fL 79.6 - 97.7 fL [facility] Platelet mean volume (Bld) [Entitic vol] 10.4 fL 8.5 - 12.2 fL [facility] Platelets (Bld) [#/Vol] 182 10*3/uL 150 - 393 K/uL [facility] RBC (Bld) [#/Vol] 3.1 10*6/uL Low [facility] WBC (Bld) [#/Vol] 6.17 10*3/uL 3.99 - 11. 19 K/uL [facility] MAGNESIUMon 11-09-2024 Magnesium [Mass/Vol] 1.9 mg/dL Normal 1.6-2.6 [facility] Comment on above: Performed By: #### M REMY, IPMark, CHM7, HFP #### [facility] (DEFAULT) [address] [place] [address] No Panel Informationon 11-09 FABY Jacques - 11/09/2024 8:56 AM EDT [...] this period of recording. Brittaney Ferraro MD [employer] Department of Neurology and Epilepsy [facility] eGFR, CKD-EPI, Female 57 Low - PINF [facility] Comment on above: Reported eGFR is bas ed on the CKD-EPI 2020 equation using creatinine, age, and sex. Interpretation and review of laboratory results Normal [facility] Interpretation and review of laboratory results Abnormal [facility] Interpretation and review of laboratory results Normal [facility] Interpretation and review of laboratory results Abnormal [facility] Radiology Study observation (narrative) [facility] PHOSPHATE, INORGANICon 11-09 Phosphorous 3.6 mg/dL Normal 2.2-4.6 [facility] Comment on above: Performed By: #### M GO, IPB, CHM7, HFP #### [facility] (DEFAULT) [address] [place] [address] 65594 PT,INR,PTTon 11-09-2024 aPTT Coag (Bld) [Time] 31.6 s Normal 24.0-34.3 [facility] Comment on above: Performed By: #### M GO, IPB, CHM7, HFP #### [facility] (DEFAULT) [address] [place] [address] 64187 INR Coag (PPP) [Relative time] 1.1 {INR} Normal 0.9-1.1 [facility] Comment on above: Performed By: #### M GO, IPB, CHM7, HFP #### [facility] (DEFAULT) [address] [place] [address] [id number] PT Coag (PPP) [Time] 14.0 s Normal 11.9-14.2 [facility] Comment on above: Performed By: #### M GO, IPB, CHM7, HFP #### [facility] (DEFAULT) [address] [place] [address] [id number] No Panel Informationon 11-08 [facility] 12 Lead EKGon 11-07-2024 12 Lead EKG [facility] Cardi[facility] [address] [place] [address] 12 Lead EKG 11/07/24 1110 MR#: [id number] Acct: [id number] Name: SARAH MCGUIRE Rep #: [id number] : 1945 78 From: Gemma Cordova MD [...] ECG Confirmed by STEW DEL VALLE, LORENA ([id number]), videotape editor JOSE ARETHA ([id number]) on 11/12/2024 7:10:59 AM Referred By: MARIO Confirmed By: LORENA CORDOVA MD 11/12/24710 Date Gemma Cordova MD CC: Dr. Monika Venegas MD; Dr. Dallas Anand MD Signed Normal [facility] ALCOHOL (ETHANOL),BLOODon Alcohol, Serum <10 Normal <10 [facility] Comment on above: Order Comment: Non-f orensic. Performed By: #### M GO, IPB, CHM7, HFP #### [facility] (DEFAULT) [address] [place] [address] Absolute lymphocyte countOrd ered By: Dallas Anand on 11-07-2024 Lymphocytes Auto (Unsp spec) [#/Vol] 0.62 10*3/uL Low 0.83-4.51 [facility] Absolute neutrophil countOrd ered By: Dallas Anand on 11-07-2024 Neutrophils (Bld) [#/Vol] 5.3 10*3/uL 2.0-7.7 [facility] Activated partial thrombopla stin time (aPTT) in platelet poor plasma by coagulation aOrdered By: Dallas Anand on 11-07-2024 aPTT Coag (PPP) [Time] 33.0 s 24.1-36.2 [facility] Anion gap in Serum or Plasma Ordered By: Dallas Anand on 11-07-2024 Anion gap [Moles/Vol] 9 mmol/L 5-15 [facility] Automated lymphocyte count a s percentage of total leukocytesOrdered By: Dallas Anand on 11-07-2024 Lymphocytes/100 WBC Auto (Unsp spec) 9.3 % Low 19-41 [facility] BUN/creatinine ratioOrdered By: Dallas Anand on 11-07-2024 Urea nitrogen/Creatinine [Mass ratio] 22.3 mg/mg High 10-20 [facility] Basic Metabolic Profile (BMP )on 11-07-2024 BUN/CRE 22.3 RATIO High 10-20 [facility] Comment on above: Performed By: #### L 499.0043 #### [facility] [address] [place], [address] Calcium [Mass/Vol] 9.1 mg/dL Normal 7.6-11.0 [facility] Comment on above: Performed By: #### L 499.0043 #### [facility] [address] [place], [address] Chloride [Moles/Vol] 98 mmol/L Normal 98-108 [facility] Comment on above: Performed By: #### L 499.0043 #### [facility] [address] [place], [address] CO2 [Moles/Vol] 23.7 mmol/L Normal 21.0-32.0 [facility] Comment on above: Performed By: #### L 499.0043 #### [facility] [address] [place], [address] Creatinine [Mass/Vol] 1.04 mg/dL Normal 0.70-1.20 [facility] Comment on above: Performed By: #### L 499.0043 #### [facility] [address] [place], [address] ECRCL 30.99 ml/min Low 50-250 [facility] Comment on above: Performed By: #### L 499.0043 #### [facility] [address] [place], [address] GAP 9 Normal 5-15 [facility] Comment on above: Performed By: #### L [id number] #### [facility] [address] [place], [address] GFR/1.73 sq M.predicted among non-blacks MDRD (S/P/Bld) [Vol rate/Area] 54 mL/min/{1.73_m2} Low >60 [facility] Comment on above: Result Comment: mL/m in/1.73m2 CKD-EPI Creatinine Equation (2020) Performed By: #### L 499.0043 #### [facility] [address] [place], [address] Glucose [Mass/Vol] 101 mg/dL High 70-99 [facility] Comment on above: Performed By: #### L [id number] #### [facility] [address] [place], [address] Potassium [Moles/Vol] 4.5 mmol/L Normal 3.3-5.1 [facility] Comment on above: Performed By: #### L 499.0043 #### [facility] [address] [place], [address] Sodium [Moles/Vol] 131 mmol/L Low 133-145 [facility] Comment on above: Performed By: #### L 499.0043 #### [facility] [address] [place], [address] Urea nitrogen [Mass/Vol] 23 mg/dL High 4-19 [facility] Comment on above: Performed By: #### L 499.0043 #### [facility] [address] [place], [address] Basophil percentageOrdered B y: Dallas Anand on 11-07-2024 Basophils/100 WBC (Bld) 0.3 % 0-1 [facility] Bedside Glucoseon 06-04-2025 FINGERSTICK GLU 99 mg/dL Normal 74-106 [facility] Comment on above: Result Comment: REJI KUMAR OF PATIENT CARE PER NURSING PROTOCOL Performed By: #### L 509.6001 #### [facility] [address] [place], [address] CBC AND ELECTRONIC DIFFon Abs Baso Auto < Normal 0.00-0.15 [facility] Comment on above: Performed By: #### M GO, IPB, CHM7, HFP #### [facility] (DEFAULT) [address] [place] [address] 15319 Abs Eos Auto < Normal 0.00-0.42 [facility] [facility] Comment on above: Performed By: #### M GO, IPB, CHM7, HFP #### [facility] (DEFAULT) [address] [place] [address] 69490 Basophils/100 WBC (Bld) 0.3 % Normal O [facility] Comment on above: Performed By: #### M GO, IPB, CHM7, HFP #### [facility] (DEFAULT) [address] [place] [address] 19360 DIFF STATUS Electronic Differential Normal [facility] Comment on above: Performed By: #### M GO, IPB, CHM7, HFP #### [facility] (DEFAULT) [address] [place] [address] 40058 Eosinophils/100 WBC (Bld) 0.4 % Normal [facility] Comment on above: Performed By: #### M GO, IPB, CHM7, HFP #### [facility] (DEFAULT) [address] [place] [address] 72973 Hematocrit (Bld) [Volume fraction] 29.0 % Low 34.9-44.3 [facility] Comment on above: Performed By: #### M GO, IPB, CHM7, HFP #### [facility] (DEFAULT) [address] [place] [address] 24352 Hemoglobin (Bld) [Mass/Vol] 10.5 g/dL Low 11.4-15.2 [facility] Comment on above: Performed By: #### M GO, IPB, CHM7, HFP #### [facility] (DEFAULT) [address] [place] [address] 51479 Immature Grans % 0.4 % Normal [facility] Comment on above: Performed By: #### M GO, IPB, CHM7, HFP #### [facility] (DEFAULT) [address] [place] [address] [phone] Immature Grans Absolute < Normal <=0.08 O [facility] Comment on above: Performed By: #### M GO, IPB, CHM7, HFP #### [facility] (DEFAULT) [address] [place] [address] 78054 Lymphocytes (Bld) [#/Vol] 0.69 10*3/uL Low 1.16-3.51 [facility] Comment on above: Performed By: #### M GO, IPB, CHM7, HFP #### [facility] (DEFAULT) [address] [place] [address] 45672 Lymphocytes/100 WBC (Bld) 10.2 % Normal [facility] Comment on above: Performed By: #### M REMY, IPB, CHM7, HFP #### [facility] (DEFAULT) [address] [place] [address] 97819 MCV (RBC) [Entitic vol] 91.5 fL Normal 79.6-97.7 O [facility] Comment on above: Performed By: #### M GO, IPB, CHM7, HFP #### [facility] (DEFAULT) [address] [place] [address] 61038 Mean Cell Hgb 33.1 pg Normal 25.9-33.9 [facility] Comment on above: Performed By: #### M GO, IPB, CHM7, HFP #### [facility] (DEFAULT) [address] [place] [address] 49388 Mean Cell Hgb Conc 36.2 g/dL High 31.4-35.9 [facility] Comment on above: Performed By: #### M IDALIA ALBERTOB, CHM7, HFP #### [facility] (DEFAULT) [address] [place] [address] 16809 Monocytes (Bld) [#/Vol] 0.62 10*3/uL Normal 0.22-0.87 [facility] Comment on above: Performed By: #### Harini ALBERTO IPB, CHM7, HFP #### [facility] (DEFAULT) [address] [place] [address] 57473 Monocytes/100 WBC (Bld) 9.2 % Normal O [facility] Comment on above: Performed By: #### Harini ALBERTO IPB, CHM7, HFP #### [facility] (DEFAULT) [address] [place] [address] 62681 Nucleated RBC 0.0 /100 WBC Normal <=0.2 [facility] Comment on above: Performed By: #### Harini ALBERTO IPB, CHM7, HFP #### [facility] (DEFAULT) [address] [place] [address] 75415 Platelet mean volume (Bld) [Entitic vol] 10.0 fL Normal 8.5-12.2 [facility] Comment on above: Performed By: #### IDALIA FUNESB, CHM7, HFP #### [facility] (DEFAULT) [address] [place] [address] 33583 Platelets (Bld) [#/Vol] 169 10*3/uL Normal 150-393 [facility] Comment on above: Performed By: #### IDALIA FUNESB, CHM7, HFP #### [facility] (DEFAULT) [address] [place] [address] 76725 RBC (Bld) [#/Vol] 3.17 10*6/uL Low 3.91-5.04 [facility] Comment on above: Performed By: #### IDALIA FUNESB, CHM7, HFP #### [facility] (DEFAULT) [address] [place] [address] 15384 RBC Distribution 13.1 % Normal 10.8-14.9 [facility] Comment on above: Performed By: #### M GO, IPB, CHM7, HFP #### [facility] (DEFAULT) [address] [place] [address] 10535 Segs + Bands Auto 79.5 % Normal [facility] Comment on above: Performed By: #### M GO, IPB, CHM7, HFP #### [facility] (DEFAULT) [address] [place] [address] 59411 Segs + Bands,Absolute Auto 5.35 K/uL Normal 1.64-7.28 [facility] Comment on above: Performed By: #### M GO, IPB, CHM7, HFP #### [facility] (DEFAULT) [address] [place] [address] 10651 WBC (Bld) [#/Vol] 6.74 10*3/uL Normal 3.99-11.19 [facility] Comment on above: Performed By: #### M GO, IPB, CHM7, HFP #### [facility] (DEFAULT) [address] [place] [address] 66425 CBC W/Diff, Automatedon 06-0 4-5 Absolute Lymph 0.62 X10 3/uL Low 0.83-4.51 [facility] Comment on above: Performed By: #### L 499.0043 #### [facility] [address] [place], [address] Absolute Neut 5.3 X10 3/uL Normal 2.0-7.7 [facility] Comment on above: Performed By: #### L 499.0043 #### [facility] [address] [place], [address] Basophils/100 WBC (Bld) 0.3 % Normal 0-1 [facility] Comment on above: Performed By: #### L 499.0043 #### [facility] [address] [place], [address] Eosinophils/100 WBC (Bld) 0.4 % Normal 0-5 [facility] Comment on above: Performed By: #### L 499.0043 #### [facility] [address] [place], [address] Erythrocyte distribution width (RBC) [Ratio] 13.3 % Normal 11.6-14.6 [facility] Comment on above: Performed By: #### L 499.0043 #### [facility] [address] [place], [address] Hematocrit (Bld) [Volume fraction] 28.5 % Low 37-47 [facility] Comment on above: Performed By: #### L 499.0043 #### [facility] [address] [place], [address] Hemoglobin (Bld) [Mass/Vol] 10.2 g/dL Low 12.0-15.0 [facility] Comment on above: Performed By: #### L 499.0043 #### [facility] [address] [place], [address] IG% 0.900 Normal 0.0-0.9 [facility] Comment on above: Result Comment: IG% - Immature Granulocytes (promyelocytes, myelocytes and metamyelocytes) > 1% indicates that a LEFT SHIFT is Present. Performed By: #### L 499.0043 #### [facility] [address] [place], [address] Lymphocytes/100 WBC (Bld) 9.3 % Low 19-41 [facility] Comment on above: Performed By: #### L 499.0043 #### [facility] [address] [place], [address] MCH (RBC) [Entitic mass] 33.0 pg High 27.0-32.0 [facility] Comment on above: Performed By: #### L 499.0043 #### [facility] [address] [place], [address] MCHC (RBC) [Mass/Vol] 35.8 g/dL Normal 32-36 [facility] Comment on above: Performed By: #### L 499.0043 #### [facility] [address] [place], [address] MCV (RBC) [Entitic vol] 92.2 fL Normal 81-99 [facility] Comment on above: Performed By: #### L 499.0043 #### [facility] [address] [place], [address] Monocytes/100 WBC (Bld) 9.9 % Normal 0-10 [facility] Comment on above: Performed By: #### L 499.0043 #### [facility] [address] [place], [address] Neutrophils/100 WBC (Bld) 79.2 % High 47-70 [facility] Comment on above: Performed By: #### L 499.0043 #### [facility] [address] [place], [address] Nucleated RBC (Bld) [#/Vol] 0 10*3/uL Normal 0-5 [facility] Comment on above: Performed By: #### L 499.0043 #### [facility] [address] [place], [address] Platelet mean volume (Bld) [Entitic vol] 9.8 fL Normal 6.2-12.0 [facility] Comment on above: Performed By: #### L 499.0043 #### [facility] [address] [place], [address] Platelets (Bld) [#/Vol] 194 10*3/uL Normal 150-450 [facility] Comment on above: Performed By: #### L 499.0043 #### [facility] [address] [place], [address] RBC (Bld) [#/Vol] 3.09 10*6/uL Low 4.2-5.4 [facility] Comment on above: Performed By: #### L 499.0043 #### [facility] [address] [place], [address] RDW SD 45.2 fl High 35.1-43.9 [facility] Comment on above: Performed By: #### L 499.0043 #### [facility] [address] [place], [address] WBC (Bld) [#/Vol] 6.7 10*3/uL Normal 4.4-11.0 [facility] Comment on above: Performed By: #### L 499.0043 #### [facility] [address] [place], [address] CHM 7 - EDon 11-07-2024 Anion gap [Moles/Vol] 15 mmol/L Normal 7-17 [facility] Comment on above: Performed By: #### M GO, IPB, CHM7, HFP #### [facility] (DEFAULT) [address] [address] Chloride [Moles/Vol] 100 mmol/L Normal 98-108 [facility] Comment on above: Performed By: #### M GO, IPB, CHM7, HFP #### [facility] (DEFAULT) [address] [address] CO2 [Moles/Vol] 21 mmol/L Normal 21-31 [facility] Comment on above: Performed By: #### M GO, IPB, CHM7, HFP #### [facility] (DEFAULT) [address] [address] Creatinine [Mass/Vol] 0.93 mg/dL Normal 0.50-1.20 [facility] Comment on above: Performed By: #### GA FUNES CHM7, HFP #### [facility] (DEFAULT) [address] [place] [address] 71010 GFR/1.73 sq M.predicted among non-blacks MDRD (S/P/Bld) [Vol rate/Area] 62 mL/min/{1.73_m2} Normal >=60 [facility] Comment on above: Result Comment: Repo rted eGFR is based on the CKD-EPI 2020 equation using creatinine, age, and sex. Performed By: #### GA FUNES CHM7, HFP #### [facility] (DEFAULT) [address] [place] [address] 66123 Glucose [Mass/Vol] 107 mg/dL Normal Nonfastin -179 mg/dL; Fastin-99 [facility] Comment on above: Performed By: #### GA FUNES, CARLM7, HFP #### [facility] (DEFAULT) [address] [place] [address] 20892 Osmolality [Osmolality] 281 mosm/kg Normal 278-305 [facility] Comment on above: Performed By: #### GA FUNES, CARLM7, HFP #### [facility] (DEFAULT) [address] [place] [address] 32166 Potassium [Moles/Vol] 4.5 mmol/L Normal 3.5-5.0 [facility] Comment on above: Performed By: #### GA FUNES, CHM7, HFP #### [facility] (DEFAULT) [address] [place] [address] 11857 Sodium [Moles/Vol] 131 mmol/L Low 135-145 [facility] Comment on above: Performed By: #### GA FUNES, CHM7, HFP #### [facility] (DEFAULT) [address] [place] [address] 95137 Urea nitrogen [Mass/Vol] 22 mg/dL Normal 7-25 [facility] Comment on above: Performed By: #### M GA ALBERTO, CARLM7, HFP #### [facility] (DEFAULT) [address] [place] [address] Urea nitrogen/Creatinine [Mass ratio] 24 mg/mg Normal [facility] Comment on above: Performed By: #### M GA ALBERTO, CARLM7, HFP #### [facility] (DEFAULT) [address] [place] [address] CT Cervical spine WO contras ton 11-07-2024 [...] IMPRESSION: No acute fracture or traumatic malalignment. [facility] Radiology Study observation (narrative) [facility] CT HEAD WITHOUT CONTRASTon 0 11-07-2024 CT [...] effect, or acute large territory infarct. Normal [facility] CT Head WO contraston 2024 IMPRESSION: Status [...] mass effect, or acute large territory infarct. [facility] Radiology Study observation (narrative) [facility] CT Head WO contrastOrdered B y: Zahida Yang on 11-07-2024 [facility] Work Phone: CT SPINE CERVICAL WITHOUT [...] No acute fracture or traumatic malalignment. Normal [facility] Carbon dioxide, total [Moles /volume] in Central venous bloodOrdered By: Dallas Anand on 11-07-2024 CO2 [Moles/Vol] 23.7 mmol/L 21.0-32.0 [facility] Chloride assayOrdered By: Mario Anand on 11-07-2024 Chloride [Moles/Vol] 98 mmol/L 98-108 [facility] Emergency Department Summary on 11-07-2024 Emergency Department Summary [facility] Medical Records Department [address] [place] [address] Emergency Department Summary 11/07/24 MR#: [id number] Acct: [id number] Name: SARAH MCGUIRE Rep #: [id number] : 1945 78 From: [place] Anand MD [...] is an 78-year-old woman. She was at [employer]. Other participants called daughter at 1021 because [...] symptoms: Yes Recent Illness/Hospitalization : No PFSH PFSH Medical History Mitral valve stenosis, non-rheumatic Cerebrovascular [...] Room Air (more content not included)... Normal [facility] Eosinophil percentageOrdered By: Dallas Anand on 11-07-2024 Eosinophils/100 WBC (Bld) 0.4 % 0-5 [facility] Erythrocyte distribution wid th ratioOrdered By: Dallasjamison Anand on 11-07-2024 Erythrocyte distribution width (RBC) [Ratio] 13.3 % 11.6-14.6 [facility] Erythrocyte distribution wid th standard deviationOrdered By: Dallasjamison Anand on 11-07-2024 Erythrocyte distribution width (RBC) [Ratio] 45.2 fl High 35.1-43.9 [facility] Glomerular filtration rate ( GFR) estimation/1.73 sq m using serum, plasma, or whole bOrdered By: Dallas Anand on 11-07-2024 GFR/1.73 sq M.predicted among non-blacks MDRD (S/P/Bld) [Vol rate/Area] 54 mL/min/{1.73_m2} Low >60 [facility] Comment on above: mL/min/1.73m2 CKD-EP I Creatinine Equation (2020) [facility] deOrdered By: [place] Anand on 11-07-2024 Glucose [Mass/Vol] 99 mg/dL 74-106 [facility] Comment on above: MANAGEMENT OF PATIEN T CARE PER NURSING PROTOCOL HIGH SENSITIVITY TROPONIN I - SINGLE ORDERon 11-07-2024 hs-Troponin I 9 ng/L Normal <34 [facility] Comment on above: Order Comment: Acute Coronary Syndrome (ACS): Initial Evaluation and Management: [email or web address] Performed By: #### L ABHSTI1, C7ED, TSH #### [facility] (DEFAULT) [address] [place] [address] 74161 Hematocrit Auto (Bld) [Volum e fraction]Ordered By: Dallasjamison Anand on 11-07-2024 Hematocrit (Bld) [Volume fraction] 28.5 % Low 37-47 [facility] Hemoglobin measurementOrdere d By: Dallasjamison Anand on 11-07-2024 Hemoglobin (Bld) [Mass/Vol] 10.2 g/dL Low 12.0-15.0 [facility] Immature granulocytes/100 WB C Auto (Bld)Ordered By: Dallasjamison Anand on 11-07-2024 Immature granulocytes/100 WBC (Bld) 0.900 % 0.0-0.9 [facility] Comment on above: IG% - Immature Granu locytes (promyelocytes, myelocytes and metamyelocytes) > 1% indicates that a LEFT SHIFT is Present. International normalized rat io (INR) calculationOrdered By: Dallasjamison Anand on 11-07-2024 INR Coag (Bld) [Relative time] 1.4 {INR} [facility] L499.0042on 11-07-2024 Trop T High Sen Normal <=14 [facility] Comment on above: Result Comment: Canc elled via OM: Order cancelled - Patient discharged Performed By: #### L 509.6001 #### [facility] [address] [place], [place], [address] L499.0043on 11-07-2024 Trop T High Sen Normal <=14 [facility] Comment on above: Result Comment: Canc elled via OM: Order cancelled - Patient discharged Performed By: #### L 509.6001 #### [facility] [address] [place], [address] L501.4021on 11-07-2024 Trop T High Sen 21 ng/L High <=14 [facility] Comment on above: Performed By: #### L 499.0043 #### [facility] [address] [place], [address] Laboratory - Chemistry and C hemistry - challengeOrdered By: Annika Pitts on 11-07-2024 pH (U) 7.0 [pH] 5.0 - 7.0 [facility] Specific gravity (U) [Rel density] 1.014 1.001 - 1.035 [facility] Urobilinogen (U) [Mass/Vol] 1.0 E.U./dL 0.2 E.U/dL, 1.0 E.U/dL [facility] - Chemistry and C hemistry - challengeon 11-07-2024 Anion gap [Moles/Vol] 15 mmol/L 7 - 17 mmol/L [facility] Chloride [Moles/Vol] 100 mmol/L 98 - 10 8 mmol/L [facility] CO2 [Moles/Vol] 21 mmol/L 21 - 31 mmol/L [facility] Creatinine [Mass/Vol] 0.93 mg/dL 0.50 - 1.20 mg/dL [facility] Glucose [Mass/Vol] 107 mg/dL 70 - 179 mg/dL [facility] Osmolality Calc [Osmolality] 281 [facility] Potassium [Moles/Vol] 4.5 mmol/L 3.5 - 5.0 mmol/L [facility] Sodium [Moles/Vol] 131 mmol/L Low 135 - 145 mmol/L [facility] Urea nitrogen [Mass/Vol] 22 mg/dL 7 - 25 mg/dL [facility] Urea nitrogen/Creatinine [Mass ratio] 24 mg/mg [facility] TSH Qn 1.934 m[IU]/L [facility] Troponin I.cardiac High sensitivity method [Mass/Vol] 9 ng/L NINF - 34 ng/L [facility] Base excess Calc (Bld) [Moles/Vol] -1.9000 mmol/L -3.0 - 3.0 mmol/L [facility] Calcium.ionized (Bld) [Mass/Vol] 4.45 mg/dL Low 4.60 - 5.30 mg/dL [facility] Carboxyhemoglobin (Bld) [Mass fraction] 1.6 % High NINF - 1.5 % [facility] CO2 (Bld) [Partial pressure] 29 mm[Hg] Low [facility] Glucose [Mass/Vol] 102 mg/dL 70 - 179 mg/dL [facility] HCO3 (Bld) [Moles/Vol] 22 mmol/L 22 - 29 mmol/L [facility] Lactate [Moles/Vol] 0.7 mmol/L 0.5 - 1. 6 mmol/L [facility] Methemoglobin (Bld) [Mass fraction] 1.1 % NINF - 1.5 % [facility] Oxygen (Bld) [Partial pressure] 106 mm[Hg] mm Hg [facility] Comment on above: Venous pO2 is not re commended for the evaluation of oxygen status, clinical correlation is recommended. pH (Bld) 7.48 [pH] High 7.32 - 7.43 [facility] Potassium [Moles/Vol] 4.3 mmol/L 3.5 - 5.0 mmol/L [facility] Sodium [Moles/Vol] 128 mmol/L Low 135 - 145 mmol/L [facility] Laboratory - Coagulationon 0 11-07-2024 INR Coag (Bld) [Relative time] 1.3 {INR} High 0.9 - 1.1 [facility] PT Coag (PPP) [Time] 15.8 s High [facility] - Drug toxicology on 11-07-2024 Amphetamine+Methampheta mine Screen (U) [Mass/Vol] Not detected Cutoff: 500 ng/mL [facility] Barbiturates Ql (U) Not detected Cutoff: 200 ng/mL [facility] Benzodiazepines Ql (U) Not detected Cutof f: 200 ng/mL [facility] Buprenorphine Ql (U) Not detected Cutoff: 5 ng/mL [facility] Cannabinoids Screen Ql (U) Not detected Cutoff: 50 ng/mL [facility] Cocaine Ql (U) Not detected Cutoff: 150 ng/mL [facility] fentaNYL Ql (U) Not detected Cutoff: 1 ng/mL [facility] Methadone Ql (U) Not detected Cutoff: 300 ng/mL [facility] Opiates Ql (U) Not detected Cutoff: 300 ng/mL [facility] oxyCODONE Ql (U) Not detected Cutoff: 100 ng/mL [facility] Ethanol Ql (Bld) mg/dL NINF - 10 mg/dL [facility] - Hematology and Cell countson 11-07-2024 Basophils (Bld) [#/Vol] K/uL 0.00 - 0.15 K/uL [facility] Basophils/100 WBC (Bld) 0.3 % [facility] Differential cell count method Nom (Bld) Electronic Differential [facility] Eosinophils (Bld) [#/Vol] K/uL 0.00 - 0.42 K/uL [facility] Eosinophils/100 WBC (Bld) 0.4 % [facility] Erythrocyte distribution width (RBC) [Ratio] 13.1 % 10.8 - 14.9 % [facility] Hematocrit (Bld) [Volume fraction] 29 % Low 34.9 - 44.3 % [facility] Hemoglobin (Bld) [Mass/Vol] 10.5 g/dL Low 11.4 - 15.2 g/dL [facility] Immature granulocytes (Bld) [#/Vol] K/uL NINF - 0.08 K/uL [facility] Immature granulocytes/100 WBC (Bld) 0.4 % [facility] Lymphocytes (Bld) [#/Vol] 0.69 10*3/uL Low 1.16 - 3.51 K/uL [facility] Lymphocytes/100 WBC (Bld) 10.2 % [facility] MCH (RBC) [Entitic mass] 33.1 pg 25.9 - 33.9 pg [facility] MCHC (RBC) [Mass/Vol] 36.2 g/dL High 31.4 - 35.9 g/dL [facility] MCV (RBC) [Entitic vol] 91.5 fL 79.6 - 97.7 fL [facility] Monocytes (Bld) [#/Vol] 0.62 10*3/uL 0.22 - 0.87 K/uL [facility] Monocytes/100 WBC (Bld) 9.2 % [facility] Neutrophils (Bld) [#/Vol] 5.35 10*3/uL 1.64 - 7.28 K/uL [facility] Nucleated RBC/100 WBC (Bld) [Ratio] 0 % NINF [facility] Platelet mean volume (Bld) [Entitic vol] 10 fL 8.5 - 12.2 fL [facility] Platelets (Bld) [#/Vol] 169 10*3/uL 150 - 393 K/uL [facility] RBC (Bld) [#/Vol] 3.17 10*6/uL Low [facility] Segmented neutrophils/100 WBC (Bld) 79.5 % [facility] WBC (Bld) [#/Vol] 6.74 10*3/uL 3.99 - 11. 19 K/uL [facility] Hematocrit (Bld) [Volume fraction] 33 % Low 34 - 46 % [facility] Hemoglobin (Bld) [Mass/Vol] 11.1 g/dL Low 11.4 - 15.2 g/dL [facility] Laboratory - Specimen inform ationOrdered By: Annika Pitts on 11-07-2024 Appearance (U) Clear Clear [facility] Color (U) Yellow Yellow [facility] - Specimen inform ationon 11-07-2024 Specimen source Nom (Unsp spec) Venous [facility] - UrinalysisOrder ed By: Annika Pitts on 11-07-2024 Bacteria LM Ql (Urine sed) PRESENT Abnormal ABSENT [facility] Epithelial cells.squamous LM Ql (Urine sed) 0-2/hpf 0-2/hpf, 3-5/hpf = 1+ [facility] Glucose Test strip (U) [Mass/Vol] Negative Negative [facility] Ketones (U) [Mass/Vol] Negative Negative [facility] Leukocyte esterase Test strip Ql (U) Moderate Abnormal Negative [facility] Nitrite Ql (U) Positive Abnormal Negative [facility] Protein (U) [Mass/Vol] Negative Negative [facility] RBC (U) [#/Vol] Negative Negative [facility] RBC LM.HPF (Urine sed) [#/Area] 0-2 [facility] WBC LM.HPF (Urine sed) [#/Area] 6 - 10 Abnormal [facility] MCV (mean corpuscular volume ) determinationOrdered By: Dallas Anand on 11-07-2024 MCV (RBC) [Entitic vol] 92.2 fL 81-99 [facility] Mean corpuscular hemoglobin (MCH) determinationOrdered By: Dallas Anand on 11-07-2024 MCH (RBC) [Entitic mass] 33.0 pg High 27.0-32.0 [facility] Mean corpuscular hemoglobin concentration (MCHC) determinationOrdered By: Dallas Anand on 11-07-2024 MCHC (RBC) [Mass/Vol] 35.8 g/dL 32-36 [facility] Mean platelet volume determi nationOrdered By: Dallas Anand on 11-07-2024 Platelet mean volume (Bld) [Entitic vol] 9.8 fL 6.2-12.0 [facility] Monocyte percentageOrdered B y: Dallas Anand on 11-07-2024 Monocytes/100 WBC (Bld) 9.9 % 0-10 [facility] Neutrophil percentageOrdered By: Dallas Anand on 11-07-2024 Neutrophils/100 WBC (Bld) 79.2 % High 47-70 [facility] No Panel InformationOrdered By: Annika Pitts on 11-07-2024 Interpretation and review of laboratory results Abnormal [facility] No Panel Informationon 11-07 Interpretation and review of laboratory results Normal [facility] For medical purposes only. Positive results are unconfirmed unless otherwise noted. [facility] eGFR, CKD-EPI, Female 62 - PINF [facility] Comment on above: Reported eGFR is bas ed on the CKD-EPI 2020 equation using creatinine, age, and sex. Interpretation and review of laboratory results Abnormal [facility] ABO/RH(D) TYPE AB NEG [facility] Specimen Expiration 11/10/2024 23:59 [facility] Interpretation and review of laboratory results Normal [facility] Interpretation and review of laboratory results Normal [facility] Interpretation and review of laboratory results Normal [facility] Interpretation and review of laboratory results Abnormal [facility] Interpretation and review of laboratory results Abnormal [facility] Interpretation and review of laboratory results Abnormal [facility] Oxyhemoglobin 96 % 94 - 98 % [facility] Nucleated red blood cell per centageOrdered By: Dallas Anand on 11-07-2024 Nucleated RBC/100 WBC (Bld) [Ratio] 0 % 0-5 [facility] PROTIME-INRon 11-07-2024 INR Coag (PPP) [Relative time] 1.3 {INR} High 0.9-1.1 [facility] Comment on above: Performed By: #### M GO, IPB, CHM7, HFP #### [facility] (DEFAULT) [address] [place] [address] PT Coag (PPP) [Time] 15.8 s High 11.9-14.2 [facility] Comment on above: Performed By: #### M GO, IPB, CHM7, HFP #### [facility] (DEFAULT) [address] [place] [address] Partial Thromboplast Timeon 11-07-2024 aPTT Coag (Bld) [Time] 33.0 s Normal 24.1-36.2 [facility] Comment on above: Performed By: #### L 499.0043 #### [facility] [address] [place], [address] Platelet countOrdered By: Mario Anand on 11-07-2024 Platelets (Bld) [#/Vol] 194 10*3/uL 150-450 [facility] Portable XR Chest Viewson IMPRESSION: No displaced [...] disease or early developing edema. Clinically correlate. [facility] Radiology Study observation (narrative) [facility] Portable XR Chest ViewsOrder ed By: Adele Luna on 11-07-2024 [facility] Work Phone: Potassium measurement (mass/ volume)Ordered By: Dallas Anand on 11-07-2024 Potassium (Unsp spec) [Mass/Vol] 4.5 mmol/L 3.3-5.1 [facility] Prothrombin Time w/INRon INR Coag (PPP) [Relative time] 1.4 {INR} Normal [facility] Comment on above: Performed By: #### L 499.0043 #### [facility] [address] [place], [address] PT Coag (PPP) [Time] 17.1 s High 11.7-14.9 [facility] Comment on above: Performed By: #### L 499.0043 #### [facility] [address] [place], [place], [id number] [phone] Prothrombin timeOrdered By: Dallas Anand on 11-07-2024 PT Coag (PPP) [Time] 17.1 s High 11.7-14.9 [facility] RBC Auto (Bld) [#/Vol]Ordere d By: Dallas Anand on 11-07-2024 RBC (Bld) [#/Vol] 3.09 10*6/uL Low 4.2-5.4 [facility] STROKE Brain/Head without Co nton 11-07-2024 STROKE Brain/Head without Cont [facility] Imaging Services [address] [place], [place] [id number] STROKE Brain/Head without Cont MR#: [id number] Acct: [id number] Name: SARAH MCGUIRE Rep #: [id number] : 1945 F 78 From: Darnell Rivera PCP: Dr. Monika Venegas MD Status: REG ER Study: STROKE Brain/Head without Cont Date of Exam: 0 11/07/24 Exam# [id number] Ordering Dr: Dallas Anand MD PROCEDURE: STROKE [...] areas infarction, of uncertain age. Reading Location: [address] CC: Dr. Monika Venegas MD; Dr. Dallas Anand MD Director Database: Signed Normal [facility] Serum creatinine measurement (mass/volume)Ordered By: Dallas Anand on 11-07-2024 Creatinine [Mass/Vol] 1.04 mg/dL 0.70-1.20 [facility] Serum glucose measurement (m ass/volume)Ordered By: Dallas Anand on 11-07-2024 Glucose [Mass/Vol] 101 mg/dL High 70-99 [facility] Serum or plasma calcium ena urement (mass/volume)Ordered By: Dallas Anand on 11-07-2024 Calcium [Mass/Vol] 9.1 mg/dL 7.6-11.0 [facility] Serum or plasma urea nitroge n measurement (mass/volume)Ordered By: Dallas Anand on 11-07-2024 Urea nitrogen [Mass/Vol] 23 mg/dL High 4-19 [facility] Sodium levelOrdered By: Dallas Anand on 11-07-2024 Sodium [Moles/Vol] 131 mmol/L Low 133-145 [facility] TSHon 11-07-2024 TSH 1.934 uIU/mL Normal 0.550-4.780 [facility] Comment on above: Performed By: #### IDALIA FUNESB, CHM7, HFP #### [facility] (DEFAULT) [address] [place] [address] TYPE AND SCREENon 11-07-2024 ABO/RH(D) TYPE AB NEG Normal [facility] Comment on above: Performed By: #### IDALIA FUNESB, CHM7, HFP #### [facility] (DEFAULT) [address] [place] [address] Specimen Expiration 11/10/2024 23:59 Normal [facility] Comment on above: Performed By: #### IDALIA FUNESB, CHM7, HFP #### [facility] (DEFAULT) [address] [place] [address] Troponin T.cardiac [Mass/vol ume] in Serum or Plasma by High sensitivity methodOrdered By: Dallas Anand on 11-07-2024 Troponin T.cardiac High sensitivity method [Mass/Vol] 21 ng/L High <14 [facility] Comment on above: Delta: 16 on URINALYSIS REFLEX TO CULTURE PERFORMABLEon 11-07-2024 Appearance (U) Clear Normal Clear [facility] Comment on above: Order Comment: For i ndwelling catheters, specimen collection is acceptable on catheter day 1 and 2 only. ? Performed By: #### U [id number] #### [facility] (DEFAULT) [address] [place] [address] Bacteria PRESENT Abnormal ABSENT [facility] Comment on above: Order Comment: For i ndwelling catheters, specimen collection is acceptable on catheter day 1 and 2 only. ? Performed By: #### U [id number] #### [facility] (DEFAULT) [address] [place] [address] Blood Urine Negative Normal Negative [facility] Comment on above: Order Comment: For i ndwelling catheters, specimen collection is acceptable on catheter day 1 and 2 only. ? Performed By: #### U [id number] #### [facility] (DEFAULT) [address] [place] [address] Color (U) Yellow Normal Yellow [facility] Comment on above: Order Comment: For i ndwelling catheters, specimen collection is acceptable on catheter day 1 and 2 only. ? Performed By: #### U [id number] #### [facility] (DEFAULT) [address] [place] [phone] Glucose Ql (U) Negative Normal Negative [facility] Comment on above: Order Comment: For i ndwelling catheters, specimen collection is acceptable on catheter day 1 and 2 only. ? Performed By: #### U [id number] #### [facility] (DEFAULT) [address] [place] [address] Ketones Ql (U) Negative Normal Negative [facility] Comment on above: Order Comment: For i ndwelling catheters, specimen collection is acceptable on catheter day 1 and 2 only. ? Performed By: #### U [id number] #### [facility] (DEFAULT) [address] [place] [address] Leukocyte esterase Test strip Ql (U) Moderate Abnormal Negative [facility] Comment on above: Order Comment: For i ndwelling catheters, specimen collection is acceptable on catheter day 1 and 2 only. ? Performed By: #### U [id number] #### [facility] (DEFAULT) [address] [place] [address] Nitrites Urine Positive Abnormal Negative [facility] Comment on above: Order Comment: For i ndwelling catheters, specimen collection is acceptable on catheter day 1 and 2 only. ? Performed By: #### U [id number] #### [facility] (DEFAULT) [address] [place] [address] pH (U) 7.0 [pH] Normal 5.0-7.0 [facility] Comment on above: Order Comment: For i ndwelling catheters, specimen collection is acceptable on catheter day 1 and 2 only. ? Performed By: #### U [id number] #### [facility] (DEFAULT) [address] [place] [address] Protein Urine Negative Normal Negative [facility] Comment on above: Order Comment: For i ndwelling catheters, specimen collection is acceptable on catheter day 1 and 2 only. ? Performed By: #### U [id number] #### [facility] (DEFAULT) [address] [place] [address] RBC Urine 0-2 Normal 0-2 [facility] Comment on above: Order Comment: For i ndwelling catheters, specimen collection is acceptable on catheter day 1 and 2 only. ? Performed By: #### U [id number] #### [facility] (DEFAULT) [address] [place] [address] Specific Dafter Urine 1.014 Normal 1.001-1.035 O [facility] Comment on above: Order Comment: For i ndwelling catheters, specimen collection is acceptable on catheter day 1 and 2 only. ? Performed By: #### U [id number] #### [facility] (DEFAULT) [address] [place] [address] Squamous/Epithelial Cells, Urine 0-2/hpf Normal 0-2/hpf, 3-5/hpf = 1+ [facility] Comment on above: Order Comment: For i ndwelling catheters, specimen collection is acceptable on catheter day 1 and 2 only. ? Performed By: #### U [id number] #### [facility] (DEFAULT) [address] [place] [address] Urobilinogen Urine 1.0 E.U./dL Normal 0.2 E.U/d L, 1.0 E.U/dL [facility] Comment on above: Order Comment: For i ndwelling catheters, specimen collection is acceptable on catheter day 1 and 2 only. ? Performed By: #### U [id number] #### [facility] (DEFAULT) [address] [place] [address] WBC Urine 6 - 10 Abnormal 0 - 5 [facility] Comment on above: Order Comment: For i ndwelling catheters, specimen collection is acceptable on catheter day 1 and 2 only. ? Performed By: #### U [id number] #### [facility] (DEFAULT) [address] [place] [address] URINE DRUG SCREEN 11-07 Amphetamine/Methampheta mine Not detected Normal Cutoff: 500 ng/mL [facility] Comment on above: Order Comment: For m edical purposes only. Positive results are unconfirmed unless otherwise noted. Performed By: #### M GO, IPB, CHM7, HFP #### [facility] (DEFAULT) [address] [place] [address] Barbiturates Not detected Normal Cutoff: 200 ng/mL [facility] Comment on above: Order Comment: For m edical purposes only. Positive results are unconfirmed unless otherwise noted. Performed By: #### M GO, IPB, CHM7, HFP #### [facility] (DEFAULT) [address] [place] [address] Benzodiazepines Not detected Normal Cutoff: 200 ng/mL [facility] Comment on above: Order Comment: For m edical purposes only. Positive results are unconfirmed unless otherwise noted. Performed By: #### M GO, IPB, CHM7, HFP #### [facility] (DEFAULT) [address] [place] [address] Buprenorphine Not detected Normal Cutoff: 5 ng/mL [facility] Comment on above: Order Comment: For m edical purposes only. Positive results are unconfirmed unless otherwise noted. Performed By: #### M GO, IPB, CHM7, HFP #### [facility] (DEFAULT) [address] [place] [address] Cannabinoids Screen Ql (U) Not detected Normal Cutoff: 50 ng/mL [facility] Comment on above: Order Comment: For m edical purposes only. Positive results are unconfirmed unless otherwise noted. Performed By: #### M GO, IPB, CHM7, HFP #### [facility] (DEFAULT) [address] [place] [address] Cocaine Not detected Normal Cutoff: 150 ng/mL [facility] Comment on above: Order Comment: For m edical purposes only. Positive results are unconfirmed unless otherwise noted. Performed By: #### M GO, IPB, CHM7, HFP #### [facility] (DEFAULT) [address] [address] Fentanyl Not detected Normal Cutoff: 1 ng/mL [facility] Comment on above: Order Comment: For m edical purposes only. Positive results are unconfirmed unless otherwise noted. Performed By: #### M GO, IPB, CHM7, HFP #### [facility] (DEFAULT) [address] [place] [address] Methadone Not detected Normal Cutoff: 300 ng/mL [facility] Comment on above: Order Comment: For m edical purposes only. Positive results are unconfirmed unless otherwise noted. Performed By: #### M GO, IPB, CHM7, HFP #### [facility] (DEFAULT) [address] [address] Opiates Not detected Normal Cutoff: 300 ng/mL [facility] Comment on above: Order Comment: For edical purposes only. Positive results are unconfirmed unless otherwise noted. Performed By: #### M GO, IPB, CHM7, HFP #### [facility] (DEFAULT) [address] [place] [address] Oxycodone Not detected Normal Cutoff: 100 ng/mL [facility] Comment on above: Order Comment: For m edical purposes only. Positive results are unconfirmed unless otherwise noted. Performed By: #### M GO, IPB, CHM7, HFP #### [facility] (DEFAULT) [address] [place] [address] VENOUS BLOOD GAS (FULL PANEL )on 11-07-2024 Base Excess -1.9 mmol/L Normal -3.0-3.0 [facility] Comment on above: Performed By: #### G SVALL #### [facility] (DEFAULT) [address] [place] [address] Carboxyhemoglobin 1.6 % High <=1.5 [facility] Comment on above: Performed By: #### G SVALL #### [facility] (DEFAULT) [address] [place] [address] Glucose [Mass/Vol] 102 mg/dL Normal Nonfastin g Glucose: 70-179 [facility] Comment on above: Performed By: #### G SVALL #### [facility] (DEFAULT) [address] [place] [address] HCO3 (Bld) [Moles/Vol] 22 mmol/L Normal 22-29 [facility] Comment on above: Performed By: #### G SVALL #### [facility] (DEFAULT) [address] [place] [address] Hematocrit (Bld) [Volume fraction] 33 % Low 34-46 [facility] Comment on above: Performed By: #### G SVALL #### [facility] (DEFAULT) [address] [place] [address] Hemoglobin (Bld) [Mass/Vol] 11.1 g/dL Low 11.4-15.2 [facility] Comment on above: Performed By: #### G SVALL #### [facility] (DEFAULT) [address] [place] [address] Ionized Calcium, Whole Blood 4.45 mg/dL Low 4.60-5.30 [facility] Comment on above: Performed By: #### G SVALL #### [facility] (DEFAULT) [address] [place] [address] Lactate, Whole Blood 0.7 mmol/L Normal 0.5-1.6 [facility] Comment on above: Performed By: #### G SVALL #### [facility] (DEFAULT) [address] [place] [address] Methemoglobin 1.1 % Normal <=1.5 [facility] Comment on above: Performed By: #### G SVALL #### [facility] (DEFAULT) [address] [place] [address]50 Oxygen saturation in Blood 99 % High 70-80 [facility] Comment on above: Performed By: #### G SVALL #### [facility] (DEFAULT) [address] [place] [address] Oxyhemoglobin 96 % Normal 94-98 [facility] Comment on above: Performed By: #### G SVALL #### [facility] (DEFAULT) [address] [place] [address]494 pCO2, Venous 29 mm Hg Low 36-52 [facility] Comment on above: Performed By: #### G SVALL #### [facility] (DEFAULT) [address] [place] [address] pH, Venous 7.48 High 7.32-7.43 [facility] Comment on above: Performed By: #### G SVALL #### [facility] (DEFAULT) [address] [place] [address]17 pO2, Venous 106 mm Hg Normal [facility] Comment on above: Result Comment: Veno us pO2 is not recommended for the evaluation of oxygen status, clinical correlation is recommended. Performed By: #### G SVALL #### [facility] (DEFAULT) [address] [place] [address] Potassium [Moles/Vol] 4.3 mmol/L Normal 3.5-5.0 [facility] Comment on above: Performed By: #### G SVALL #### [facility] (DEFAULT) [address] [place] [address] Sodium [Moles/Vol] 128 mmol/L Low 135-145 [facility] Comment on above: Performed By: #### G SVALL #### [facility] (DEFAULT) [address] [place] [address] Specimen type Nom (Spec) Venous Normal [facility] Comment on above: Performed By: #### G SVALL #### [facility] (DEFAULT) [address] [place] [address] Vital signson 11-07-2024 Oxygen saturation in Blood 99 % High 70 - 80 % [facility] White blood cell (WBC) count Ordered By: Dallas Anand on 11-07-2024 WBC (Bld) [#/Vol] 6.7 10*3/uL 4.4-11.0 [facility] XR CHEST 1 VIEW PORTABLEon 0 11-07-2024 [...] or early developing edema. Clinically correlate. Normal [facility] XR PELVIS 1-2 VIEWSon 2024 XR PELVIS [...] pubic symphysis. No displaced fracture evident. Normal [facility] XR Pelvis 2 Viewson 11-08-19 IMPRESSION: Osteopenia. [...] the pubic symphysis. No displaced fracture evident. [facility] Radiology Study observation (narrative) [facility] XR Pelvis 2 ViewsOrdered By: Damien Beasley on 11-07-2024 [facility] Work Phone: Absolute lymphocyte countOrd ered By: Hayden Sadler on 09-27-2024 Lymphocytes Auto (Unsp spec) [#/Vol] 0.70 10*3/uL Low 0.83-4.51 [facility] Absolute neutrophil countOrd ered By: Hayden Salder on 09-27-2024 Neutrophils (Bld) [#/Vol] 5.1 10*3/uL 2.0-7.7 [facility] Activated partial thrombopla stin time (aPTT) in platelet poor plasma by coagulation aOrdered By: Hayden Sadler on 09-27-2024 aPTT Coag (PPP) [Time] 32.4 s 24.1-36.2 [facility] Anion gap in Serum or Plasma Ordered By: Hayden Sadler on 09-27-2024 Anion gap [Moles/Vol] 10 mmol/L 5-15 [facility] Automated lymphocyte count a s percentage of total leukocytesOrdered By: Hayden Sadler on 09-27-2024 Lymphocytes/100 WBC Auto (Unsp spec) 10.8 % Low 19-41 [facility] BUN/creatinine ratioOrdered By: Hayden Sadler on 09-27-2024 Urea nitrogen/Creatinine [Mass ratio] 23.3 mg/mg High 10-20 [facility] Basic Metabolic Profile (BMP )on 09-27-2024 BUN/CRE 23.3 RATIO High 10-20 [facility] Comment on above: Performed By: #### L 500.2500 #### [facility] [address] [facility] [place], [address] Calcium [Mass/Vol] 9.3 mg/dL Normal 7.6-11.0 [facility] Comment on above: Performed By: #### L 500.2500 #### [facility] [address] [place], [address] Chloride [Moles/Vol] 95 mmol/L Low 98-108 [facility] Comment on above: Performed By: #### L 500.2500 #### [facility] [address] [place], [address] CO2 [Moles/Vol] 22.8 mmol/L Normal 21.0-32.0 [facility] Comment on above: Performed By: #### L 500.2500 #### [facility] [address] [place], [address] Creatinine [Mass/Vol] 0.97 mg/dL Normal 0.70-1.20 [facility] Comment on above: Performed By: #### L 500.2500 #### [facility] [address] [place], [address] ECRCL 33.23 ml/min Low 50-250 [facility] Comment on above: Performed By: #### L 500.2500 #### [facility] [address] [place], [address] GAP 10 Normal 5-15 [facility] Comment on above: Performed By: #### L 500.2500 #### [facility] [address] [place], [address] GFR/1.73 sq M.predicted among non-blacks MDRD (S/P/Bld) [Vol rate/Area] 59 mL/min/{1.73_m2} Low >60 [facility] Comment on above: Result Comment: mL/m in/1.73m2 CKD-EPI Creatinine Equation (2020) Performed By: #### L 500.2500 #### [facility] [address] [place], [address] Glucose [Mass/Vol] 160 mg/dL High 70-99 [facility] Comment on above: Performed By: #### L 500.2500 #### [facility] [address] [place], [address] Potassium [Moles/Vol] 4.6 mmol/L Normal 3.3-5.1 [facility] Comment on above: Performed By: #### L 500.2500 #### [facility] [address] [place], [address] Sodium [Moles/Vol] 128 mmol/L Low 133-145 [facility] Comment on above: Performed By: #### L 500.2500 #### [facility] [address] [place], [address] Urea nitrogen [Mass/Vol] 23 mg/dL High 4-19 [facility] Comment on above: Performed By: #### L 500.2500 #### [facility] [address] [place], [address] Basophil percentageOrdered B y: Hayden Doroteo on 09-27-2024 Basophils/100 WBC (Bld) 0.3 % 0-1 [facility] CBC W/Diff, Automatedon 09-05 Absolute Lymph 0.70 X10 3/uL Low 0.83-4.51 [facility] Comment on above: Performed By: #### L 500.2500 #### [facility] [address] [place], [address] Absolute Neut 5.1 X10 3/uL Normal 2.0-7.7 [facility] Comment on above: Performed By: #### L 500.2500 #### [facility] [address] [place], [address] Basophils/100 WBC (Bld) 0.3 % Normal 0-1 [facility] Comment on above: Performed By: #### L 500.2500 #### [facility] [address] [place], [address] Eosinophils/100 WBC (Bld) 1.1 % Normal 0-5 [facility] Comment on above: Performed By: #### L 500.2500 #### [facility] [address] [place], [address] Erythrocyte distribution width (RBC) [Ratio] 13.8 % Normal 11.6-14.6 [facility] Comment on above: Performed By: #### L 500.2500 #### [facility] [address] [place], [address] Hematocrit (Bld) [Volume fraction] 31.3 % Low 37-47 [facility] Comment on above: Performed By: #### L 500.2500 #### [facility] [address] [place], [address] Hemoglobin (Bld) [Mass/Vol] 11.0 g/dL Low 12.0-15.0 [facility] Comment on above: Performed By: #### L 500.2500 #### [facility] [address] [place], [address] IG% 0.800 Normal 0.0-0.9 [facility] Comment on above: Result Comment: IG% - Immature Granulocytes (promyelocytes, myelocytes and metamyelocytes) > 1% indicates that a LEFT SHIFT is Present. Performed By: #### L 500.2500 #### [facility] [address] [place], [address] Lymphocytes/100 WBC (Bld) 10.8 % Low 19-41 [facility] Comment on above: Performed By: #### L 500.2500 #### [facility] [address] [place], [address] MCH (RBC) [Entitic mass] 32.4 pg High 27.0-32.0 [facility] Comment on above: Performed By: #### L 500.2500 #### [facility] [address] [place], [address] MCHC (RBC) [Mass/Vol] 35.1 g/dL Normal 32-36 [facility] Comment on above: Performed By: #### L 500.2500 #### [facility] [address] [place], [address] MCV (RBC) [Entitic vol] 92.3 fL Normal 81-99 [facility] Comment on above: Performed By: #### L 500.2500 #### [facility] [address] [place], [address] Monocytes/100 WBC (Bld) 8.3 % Normal 0-10 [facility] Comment on above: Performed By: #### L 500.2500 #### [facility] [address] [place], [address] Neutrophils/100 WBC (Bld) 78.7 % High 47-70 [facility] Comment on above: Performed By: #### L 500.2500 #### [facility] [address] [place], [address] Nucleated RBC (Bld) [#/Vol] 0 10*3/uL Normal 0-5 [facility] Comment on above: Performed By: #### L 500.2500 #### [facility] [address] [place], [address] Platelet mean volume (Bld) [Entitic vol] 9.9 fL Normal 6.2-12.0 [facility] Comment on above: Performed By: #### L 500.2500 #### [facility] [address] [place], [address] Platelets (Bld) [#/Vol] 219 10*3/uL Normal 150-450 [facility] Comment on above: Performed By: #### L 500.2500 #### [facility] [address] [place], [address] RBC (Bld) [#/Vol] 3.39 10*6/uL Low 4.2-5.4 [facility] Comment on above: Performed By: #### L 500.2500 #### [facility] [address] [place], [address] RDW SD 46.5 fl High 35.1-43.9 [facility] Comment on above: Performed By: #### L 500.2500 #### [facility] [address] [place], [address] WBC (Bld) [#/Vol] 6.5 10*3/uL Normal 4.4-11.0 [facility] Comment on above: Performed By: #### L 500.2500 #### [facility] [address] [place], [address] Carbon dioxide, total [Moles /volume] in Central venous bloodOrdered By: Hayden Sadler on 09-27-2024 CO2 [Moles/Vol] 22.8 mmol/L 21.0-32.0 [facility] Chest PA and Lateralon 09-27 Chest PA and Lateral [facility] Imaging Services [address] [place] [address] Chest PA and Lateral MR#: [id number] Acct: [id number] Name: SARAH MCGUIER Rep #: [id number] : 1945 F 78 From: Eugenio gomez MD PCP: Dr. Monika Venegas MD Status: REG ER Study: Chest PA and Lateral Date of Exam: 09/27/24 Exam# [id number] Ordering Dr: Hayden Sadler DO PROCEDURE: CHEST [...] No acute abnormality is seen. Reading Location: [place] [address] CC: Dr. Monika Venegas MD; Dr. Hayden Sadler DO Director Database: Signed Normal [facility] Chloride assayOrdered By: Delfin Sadler on 09-27-2024 Chloride [Moles/Vol] 95 mmol/L Low 98-108 [facility] Emergency Department Summary on 09-27-2024 Emergency Department Summary [facility] Medical Records Department [address] [place] [address] Emergency Department Summary 09/27/24 MR#: [id number] Acct: [id number] Name: SARAH MCGUIRE Rep #: [id number] : 1945 78 From: Hayden Sadler DO [...] her surgery and from the ride from [facility] to [place] and December 2022 she noted that she has had some numbness and tingling periodically in her left arm but today this felt different therefore her daughter brought her here for further evaluation management. She states that she was sitting eating breakfast when this occurred. Patient states that she is anxious about her symptoms. She states that she is on Eliquis. [facility] Medical History Mitral valve stenosis, non-rheumatic [...] 89 F (more content not included)... Normal [facility] Eosinophil percentageOrdered By: Hayden Sadler on 09-27-2024 Eosinophils/100 WBC (Bld) 1.1 % 0-5 [facility] Erythrocyte distribution wid th (RBC) [Ratio]Ordered By: Hayden Sadler on 09-27-2024 Erythrocyte distribution width (RBC) [Entitic vol] 46.5 fL High 35.1-43.9 [facility] Erythrocyte distribution wid th ratioOrdered By: Hayden Sadler on 09-27-2024 Erythrocyte distribution width (RBC) [Ratio] 13.8 % 11.6-14.6 [facility] Erythrocyte distribution wid th standard deviationOrdered By: Hayden Sadler on 09-27-2024 Erythrocyte distribution width (RBC) [Ratio] 46.5 fl High 35.1-43.9 [facility] Estimation of creatinine guido aranceOrdered By: Hayden Sadler on 09-27-2024 Estimated Creatinine Clearance Calc 33.23 ml/min Low 50-250 [facility] GFR/1.73 sq M.predicted maicol g non-blacks MDRD (S/P/Bld) [Vol rate/Area]Ordered By: Hayden Sadler on 09-27-2024 Estimated GFR (MDRD) Non-Af Amer 59 Low >60 [facility] Comment on above: mL/min/1.73m2 CKD-EP I Creatinine Equation (2020) Glomerular filtration rate ( GFR) estimation/1.73 sq m using serum, plasma, or whole bOrdered By: Hayden Sadler on 09-27-2024 GFR/1.73 sq M.predicted among non-blacks MDRD (S/P/Bld) [Vol rate/Area] 59 mL/min/{1.73_m2} Low >60 [facility] Comment on above: mL/min/1.73m2 CKD-EP I Creatinine Equation (2020) Hematocrit Auto (Bld) [Volum e fraction]Ordered By: Hayden Sadler on 09-27-2024 Hematocrit (Bld) [Volume fraction] 31.3 % Low 37-47 [facility] Hemoglobin measurementOrdere d By: Hayden Sadler on 09-27-2024 Hemoglobin (Bld) [Mass/Vol] 11.0 g/dL Low 12.0-15.0 [facility] Immature granulocytes/100 WB C Auto (Bld)Ordered By: Hayden Sadler on 09-27-2024 Immature granulocytes/100 WBC (Bld) 0.800 % 0.0-0.9 [facility] Comment on above: IG% - Immature Granu locytes (promyelocytes, myelocytes and metamyelocytes) > 1% indicates that a LEFT SHIFT is Present. International normalized rat io (INR) calculationOrdered By: Hayden Sadler on 09-27-2024 INR Coag (Bld) [Relative time] 1.1 {INR} [facility] L499.0042on 09-27-2024 Trop T High Sen 14 ng/L Normal <=14 [facility] Comment on above: Performed By: #### L 509.6001 #### [facility] [address] [place], [address] L499.0043on 09-27-2024 Trop T High Sen Normal <=14 [facility] Comment on above: Result Comment: CANC ELLATION ORDER Performed By: #### L 499.0043 #### [facility] [address] [place], [address] L501.4021on 09-27-2024 Trop T High Sen 16 ng/L High <=14 [facility] Comment on above: Performed By: #### L 500.2500 #### [facility] [address] [place], [address] Lymphocytes Auto (Unsp spec) [#/Vol]Ordered By: Hayden Sadler on 09-27-2024 Lymphocytes (Bld) [#/Vol] 0.70 10*3/uL Low 0.83-4.51 [facility] Lymphocytes/100 WBC Auto (Un sp spec)Ordered By: Hayden Sadler on 09-27-2024 Lymphocytes/100 WBC (Bld) 10.8 % Low 19-41 [facility] MCV (mean corpuscular volume ) determinationOrdered By: Hayden Sadler on 09-27-2024 MCV (RBC) [Entitic vol] 92.3 fL 81-99 [facility] Mean corpuscular hemoglobin (MCH) determinationOrdered By: Hayden Sadler on 09-27-2024 MCH (RBC) [Entitic mass] 32.4 pg High 27.0-32.0 [facility] Mean corpuscular hemoglobin concentration (MCHC) determinationOrdered By: Hayden Sadler on 09-27-2024 MCHC (RBC) [Mass/Vol] 35.1 g/dL 32-36 [facility] Mean platelet volume determi nationOrdered By: Hayden Sadler on 09-27-2024 Platelet mean volume (Bld) [Entitic vol] 9.9 fL 6.2-12.0 [facility] Monocyte percentageOrdered B y: Hayden Sadler on 09-27-2024 Monocytes/100 WBC (Bld) 8.3 % 0-10 [facility] Neutrophil percentageOrdered By: Hayden Sadler on 09-27-2024 Neutrophils/100 WBC (Bld) 78.7 % High 47-70 [facility] Nucleated red blood cell per centageOrdered By: Hayden Sadler on 09-27-2024 Nucleated RBC/100 WBC (Bld) [Ratio] 0 % 0-5 [facility] Partial Thromboplast Timeon 09-27-2024 aPTT Coag (Bld) [Time] 32.4 s Normal 24.1-36.2 [facility] Comment on above: Performed By: #### L 499.0043 #### [facility] [address] [place], [place], [address] Platelet countOrdered By: Delfin Sadler on 09-27-2024 Platelets (Bld) [#/Vol] 219 10*3/uL 150-450 [facility] Potassium (Unsp spec) [Mass/ Vol]Ordered By: Hayden Sadler on 09-27-2024 Potassium [Moles/Vol] 4.6 mmol/L 3.3-5.1 [facility] Potassium measurement (mass/ volume)Ordered By: Hayden Sadler on 09-27-2024 Potassium (Unsp spec) [Mass/Vol] 4.6 mmol/L 3.3-5.1 [facility] Prothrombin Time w/INRon INR Coag (PPP) [Relative time] 1.1 {INR} Normal [facility] Comment on above: Performed By: #### L 499.0043 #### [facility] [address] [facility] [place], [address] PT Coag (PPP) [Time] 14.8 s Normal 11.7-14.9 [facility] Comment on above: Performed By: #### L 499.0043 #### [facility] [address] [place], [address] Prothrombin timeOrdered By: Hayden Sadler on 09-27-2024 PT Coag (PPP) [Time] 14.8 s 11.7-14.9 [facility] RBC Auto (Bld) [#/Vol]Ordere d By: Hayden Sadler on 09-27-2024 RBC (Bld) [#/Vol] 3.39 10*6/uL Low 4.2-5.4 [facility] Serum creatinine measurement (mass/volume)Ordered By: Hayden Sadler on 09-27-2024 Creatinine [Mass/Vol] 0.97 mg/dL 0.70-1.20 [facility] Serum glucose measurement (m ass/volume)Ordered By: Hayden Sadler on 09-27-2024 Glucose [Mass/Vol] 160 mg/dL High 70-99 [facility] Serum or plasma calcium ena urement (mass/volume)Ordered By: Hayden Sadler on 09-27-2024 Calcium [Mass/Vol] 9.3 mg/dL 7.6-11.0 [facility] Serum or plasma urea nitroge n measurement (mass/volume)Ordered By: Hayden Sadler on 09-27-2024 Urea nitrogen [Mass/Vol] 23 mg/dL High 4-19 [facility] Sodium levelOrdered By: Naomi Sadler on 09-27-2024 Sodium [Moles/Vol] 128 mmol/L Low 133-145 [facility] Troponin T.cardiac High sens itivity method [Mass/Vol]Ordered By: Hayden Sadler on 09-27-2024 Troponin T High Sensitivity 16 ng/L High <14 [facility] Troponin T High Sensitivity 2 Hour 14 ng/L <14 [facility] Troponin T.cardiac [Mass/vol ume] in Serum or Plasma by High sensitivity methodOrdered By: Hayden Sadler on 09-27-2024 Troponin T.cardiac High sensitivity method [Mass/Vol] 16 ng/L High <14 [facility] Troponin T.cardiac High sensitivity method [Mass/Vol] 14 ng/L <14 [facility] White blood cell (WBC) count Ordered By: Hayden Sadler on 09-27-2024 WBC (Bld) [#/Vol] 6.5 10*3/uL 4.4-11.0 [facility] aPTT Coag (PPP) [Time]Ordere d By: Hayden Sadler on 09-27-2024 aPTT Coag (Bld) [Time] 32.4 s 24.1-36.2 [facility] Basic Metabolic Profile (BMP )on 07-24-2024 BUN/CRE 26.3 RATIO High 10-20 [facility] Comment on above: Performed By: #### L 509.6001 #### [facility] [address] [place], [address] CA,Total 9.4 mg/dL Normal 8.5-10.1 [facility] Comment on above: Performed By: #### L 509.6001 #### [facility] [address] [place], [address] Chloride [Moles/Vol] 97 mmol/L Low 98-107 [facility] Comment on above: Performed By: #### L 509.6001 #### [facility] [address] [place], [address] CO2 [Moles/Vol] 24.0 mmol/L Normal 21.0-32.0 [facility] Comment on above: Performed By: #### L 509.6001 #### [facility] [address] [place], [address] Creatinine [Mass/Vol] 0.80 mg/dL Normal 0.55-1.02 [facility] Comment on above: Result Comment: The validity of the calculated GFR GFRAA in patients over 70 years has not been determined. Clinical correlation is essential. Performed By: #### L 509.6001 #### [facility] [address] [place], [address] EST GFR - AA 89 mL/min Normal >60 [facility] Comment on above: Result Comment: Afri can Tongan GFR Calc Performed By: #### L 509.6001 #### [facility] [address] [place], [address] GAP 8 Normal 5-15 [facility] Comment on above: Performed By: #### L 509.6001 #### [facility] [address] [place], [address] GFR/1.73 sq M.predicted among non-blacks MDRD (S/P/Bld) [Vol rate/Area] 74 mL/min/{1.73_m2} Normal >60 [facility] Comment on above: Result Comment: Non- GFR Calc Performed By: #### L 509.6001 #### [facility] [address] [place], [address] Glucose [Mass/Vol] 120 mg/dL High 74-106 [facility] Comment on above: Result Comment: Fast ing Glucose result from 100 to 125 mg/dL suggests IMPAIRED HOMEOSTASIS per A.D.A. criteria. Performed By: #### L 509.6001 #### [facility] [address] [place], [address] Potassium [Moles/Vol] 4.5 mmol/L Normal 3.5-5.1 [facility] Comment on above: Performed By: #### L 509.6001 #### [facility] [address] [place], [address] Sodium [Moles/Vol] 129 mmol/L Low 136-145 [facility] Comment on above: Performed By: #### L 509.6001 #### [facility] [address] [place], [address] Urea nitrogen [Mass/Vol] 21 mg/dL High 7-18 [facility] Comment on above: Performed By: #### L 509.6001 #### [facility] [address] [place], [address] Blood urea nitrogen (BUN)/cr eatinine ratioOrdered By: Nati Hudson on 07-24-2024 Urea nitrogen/Creatinine [Mass ratio] 26.3 mg/mg High 10-20 [facility] Carbon dioxide measurementOr dered By: Nati Hudson on 07-24-2024 CO2 [Moles/Vol] 24.0 mmol/L 21.0-32.0 [facility] Chloride measurementOrdered By: Nati Hudson on 07-24-2024 Chloride [Moles/Vol] 97 mmol/L Low 98-107 [facility] Estimated glomerular filtrat ion rate (GFR) AmericanOrdered By: Nati Hudson on 07-24-2024 Estimated GFR (MDRD) Amer 89 mL/min >60 [facility] Comment on above: GFR Calc Glomerular filtration rate ( GFR) estimationOrdered By: Nati Hudson on 07-24-2024 Estimated GFR (MDRD) Non-Af Amer 74 mL/min >60 [facility] Comment on above: Non- GFR Calc GFR/1.73 sq M.predicted among non-blacks MDRD (S/P/Bld) [Vol rate/Area] 74 mL/min/{1.73_m2} >60 [facility] Comment on above: Non- GFR Calc Glucose measurementOrdered B y: Nati Hudson on 07-24-2024 Glucose [Mass/Vol] 120 mg/dL High 74-106 [facility] Comment on above: Fasting Glucose resu lt from 100 to 125 mg/dL suggests IMPAIRED HOMEOSTASIS per A.D.A. criteria. Potassium measurementOrdered By: Nati Hudson on 07-24-2024 Potassium [Moles/Vol] 4.5 mmol/L 3.5-5.1 [facility] Serum anion gap measurementO rdered By: Nati Hudson on 07-24-2024 Anion gap [Moles/Vol] 8 mmol/L 5-15 [facility] Serum or plasma calcium ena urement (mass/volume)Ordered By: Nati Hudson on 07-24-2024 Calcium [Mass/Vol] 9.4 mg/dL 8.5-10.1 [facility] Serum or plasma creatinine m easurement (mass/volume)Ordered By: Nati Hudson on 07-24-2024 Creatinine [Mass/Vol] 0.80 mg/dL 0.55-1.02 [facility] Comment on above: The validity of the calculated GFR & GFRAA in patients over 70 years has not been determined. Clinical correlation is essential. Serum or plasma urea nitroge n measurement (mass/volume)Ordered By: Nati Hudson on 07-24-2024 Urea nitrogen [Mass/Vol] 21 mg/dL High 7-18 [facility] Sodium levelOrdered By: Luiz Hudson on 07-24-2024 Sodium [Moles/Vol] 129 mmol/L Low 136-145 [facility] MRI BRAIN WITH PERFUSIONon 0 07-16-2024 MRI [...] on the March 14, 2024 PET/CT. Normal [facility] Basic Metabolic Profile (BMP )on 06-19-2024 BUN/CRE 25.9 RATIO High 10-20 [facility] Comment on above: Performed By: #### L 500.2500 #### [facility] [address] [place], [address] CA,Total 9.3 mg/dL Normal 8.5-10.1 [facility] Comment on above: Performed By: #### L 500.2500 #### [facility] [address] [place], [address] Chloride [Moles/Vol] 98 mmol/L Normal 98-107 [facility] Comment on above: Performed By: #### L 500.2500 #### [facility] [address] [place], [address] CO2 [Moles/Vol] 24.0 mmol/L Normal 21.0-32.0 [facility] Comment on above: Performed By: #### L 500.2500 #### [facility] [address] [place], [address] Creatinine [Mass/Vol] 0.89 mg/dL Normal 0.55-1.02 [facility] Comment on above: Result Comment: The validity of the calculated GFR GFRAA in patients over 70 years has not been determined. Clinical correlation is essential. Performed By: #### L 500.2500 #### [facility] [address] [place], [address] EST GFR - AA 79 mL/min Normal >60 [facility] Comment on above: Result Comment: Afri can Tongan GFR Calc Performed By: #### L 500.2500 #### [facility] [address] [place], [address] GAP 6 Normal 5-15 [facility] Comment on above: Performed By: #### L 500.2500 #### [facility] [address] [place], [address] GFR/1.73 sq M.predicted among non-blacks MDRD (S/P/Bld) [Vol rate/Area] 65 mL/min/{1.73_m2} Normal >60 [facility] Comment on above: Result Comment: Non- GFR Calc Performed By: #### L 500.2500 #### [facility] [address] [place], [address] Glucose [Mass/Vol] 121 mg/dL High 74-106 [facility] Comment on above: Result Comment: Fast ing Glucose result from 100 to 125 mg/dL suggests IMPAIRED HOMEOSTASIS per A.D.A. criteria. Performed By: #### L 500.2500 #### [facility] [address] [place], [address] Potassium [Moles/Vol] 4.4 mmol/L Normal 3.5-5.1 [facility] Comment on above: Performed By: #### L 500.2500 #### [facility] [address] [place], [address] Sodium [Moles/Vol] 129 mmol/L Low 136-145 [facility] Comment on above: Performed By: #### L 500.2500 #### [facility] [address] [place], [address] Urea nitrogen [Mass/Vol] 23 mg/dL High 7-18 [facility] Comment on above: Performed By: #### L 500.2500 #### [facility] [address] [place], [address] Blood urea nitrogen (BUN)/cr eatinine ratioOrdered By: Nati Hudson on 06-19-2024 Urea nitrogen/Creatinine [Mass ratio] 25.9 mg/mg High 10-20 [facility] Carbon dioxide measurementOr dered By: Nati Hudson on 06-19-2024 CO2 [Moles/Vol] 24.0 mmol/L 21.0-32.0 [facility] Chloride measurementOrdered By: Nati Hudson on 06-19-2024 Chloride [Moles/Vol] 98 mmol/L 98-107 [facility] Direct serum free thyroxine (FT4) measurementOrdered By: Lolly Alejandra on 06-19-2024 Free T4 [Mass/Vol] 1.60 ng/dL High 0.76-1.46 [facility] Estimated glomerular filtrat ion rate (GFR) AmericanOrdered By: Nati Hudson on 06-19-2024 Estimated GFR (MDRD) Amer 79 mL/min >60 [facility] Comment on above: GFR Calc Free T3on 06-19-2024 Free T3 [Mass/Vol] 1.8 pg/mL Low 2.18-3.98 [facility] Comment on above: Performed By: #### L 506.0400, L501.9520, L501.14905 #### [facility] [address] [place], [place], [address] Free G7Stgaofr By: Lolly Alejandra on 06-19-2024 Free Triiodothyronine (T3) pg/dL 1.8 pg/mL Low 2.18-3.98 [facility] Glomerular filtration rate ( GFR) estimationOrdered By: Nati Hudson on 06-19-2024 Estimated GFR (MDRD) Non-Af Amer 65 mL/min >60 [facility] Comment on above: Non- GFR Calc Glucose measurementOrdered B y: Nati Hudson on 06-19-2024 Glucose [Mass/Vol] 121 mg/dL High 74-106 [facility] Comment on above: Fasting Glucose resu lt from 100 to 125 mg/dL suggests IMPAIRED HOMEOSTASIS per A.D.A. criteria. Osmolality (U) [Osmolality]O rdered By: Nati Hudson on 06-19-2024 Urine Osmolality 657 mOsm/KG >50 [facility] Comment on above: Normal Urine Referen ce Ranges Random: 50 - 1200 mOsm/kg H20 depending on fluid intake Random: >850 mOsm/kg after 12 hour fluid restriction 24 hour: ~300 - 900 mOsm/kg H2O Osmolality, Serumon 06-19-19 25 OSMOLALITY,SER 281 mOsm/KG Normal 280-301 [facility] Comment on above: Performed By: #### L 500.2500 #### [facility] [address], [place], [address] Osmolality, Urineon 06-19-19 25 OSMOLALITY,UR 657 mOsm/KG Normal [facility] Comment on above: Result Comment: Normal Urine Reference Ranges Random: 50 - 1200 mOsm/kg H20 depending on fluid intake Random: >850 mOsm/kg after 12 hour fluid restriction 24 hour: 300 - 900 mOsm/kg H2O Performed By: #### L 500.2500 #### [facility] [address], [place], [address] Osmolality, serumOrdered By: Nati Hudson on 06-19-2024 Serum Osmolality 281 mOsm/KG 280-301 [facility] Potassium measurementOrdered By: Nati Hudson on 06-19-2024 Potassium [Moles/Vol] 4.4 mmol/L 3.5-5.1 [facility] Serum anion gap measurementO rdered By: Nati Hudson on 06-19-2024 Anion gap [Moles/Vol] 6 mmol/L 5-15 [facility] Serum or plasma calcium ena urement (mass/volume)Ordered By: Nati Hudson on 06-19-2024 Calcium [Mass/Vol] 9.3 mg/dL 8.5-10.1 [facility] Serum or plasma creatinine m easurement (mass/volume)Ordered By: Nati Hudson on 06-19-2024 Creatinine [Mass/Vol] 0.89 mg/dL 0.55-1.02 [facility] Comment on above: The validity of the calculated GFR & GFRAA in patients over 70 years has not been determined. Clinical correlation is essential. Serum or plasma urea nitroge n measurement (mass/volume)Ordered By: Nati Hudson on 06-19-2024 Urea nitrogen [Mass/Vol] 23 mg/dL High 7-18 [facility] Sodium levelOrdered By: Luiz Hudson on 06-19-2024 Sodium [Moles/Vol] 129 mmol/L Low 136-145 [facility] Sodium urOrdered By: Ana Cristina Hudson on 06-19-2024 Sodium (U) [Moles/Vol] 75 mmol/L Not Establ. [facility] T4 Free Directon 06-19-2024 T4 FREE DIRECT 1.60 ng/dL High 0.76-1.46 [facility] Comment on above: Performed By: #### L 506.0400, L501.9520, L501.03627 #### [facility] [address] [place], [address] TSH QnOrdered By: Lolly Bernabe on 06-19-2024 Thyroid Stimulating Hormone (TSH) 1.730 uIU/mL 0.358-3.740 [facility] Thyroid Stim Hormone (TSH)on 06-19-2024 TSH 1.730 uIU/mL Normal 0.358-3.740 [facility] Comment on above: Performed By: #### L 506.0400, L501.9520, L501.48950 #### [facility] [address] [place], [address] Urine Sodiumon 06-19-2024 Sodium (U) [Moles/Vol] 75 mmol/L Normal Not Establ. [facility] Comment on above: Performed By: #### L 500.2500 #### [facility] [address] [place], [address] AST(SGOT)on 04-17-2024 AST [Catalytic activity/Vol] 24 U/L Normal 15-37 [facility] Comment on above: Order Comment: Order Date: 03/20/24Order Info: 666-06 - BMPOrder Info: - LIPIDOrder Date: 11/18/23Order Info: 1920-01 - ASTOrder Info: 1741-11 - ALT Performed By: #### L 509.6001 #### [facility] [address] [place], [address] Alanine Aminotransferas (SGP T)on 04-17-2024 ALT [Catalytic activity/Vol] 46 U/L Normal 13-56 [facility] Comment on above: Order Comment: Order Date: 03/20/24Order Info: 666-06 - BMPOrder Info: - LIPIDOrder Date: 11/18/23Order Info: 1920-01 - ASTOrder Info: 1741-11 - ALT Performed By: #### L 509.6001 #### [facility] [address] [place], [address] Basic Metabolic Profile (BMP )on 04-17-2024 BUN/CRE 17.6 RATIO Normal 10-20 [facility] Comment on above: Order Comment: Order Date: 03/20/24Order Info: 666-06 - BMPOrder Info: - LIPIDOrder Date: 11/18/23Order Info: 1920-01 - ASTOrder Info: 1741-11 - ALT Performed By: #### L 499.0043 #### [facility] [address] [place], [address] CA,Total 9.1 mg/dL Normal 8.5-10.1 [facility] Comment on above: Order Comment: Order Date: 03/20/24Order Info: 666-06 - BMPOrder Info: - LIPIDOrder Date: 11/18/23Order Info: 1920-01 - ASTOrder Info: 1741-11 - ALT Performed By: #### L 499.0043 #### [facility] [address] [place], [address] Chloride [Moles/Vol] 99 mmol/L Normal 98-107 [facility] Comment on above: Order Comment: Order Date: 03/20/24Order Info: 666-06 - BMPOrder Info: - LIPIDOrder Date: 11/18/23Order Info: 1920-01 - ASTOrder Info: 1741-11 - ALT Performed By: #### L 499.0043 #### [facility] [address] [place], [address] CO2 [Moles/Vol] 24.0 mmol/L Normal 21.0-32.0 [facility] Comment on above: Order Comment: Order Date: 03/20/24Order Info: 666-06 - BMPOrder Info: - LIPIDOrder Date: 11/18/23Order Info: 1920-01 - ASTOrder Info: 1741-11 - ALT Performed By: #### L 499.0043 #### [facility] [address] [place], [address] Creatinine [Mass/Vol] 0.91 mg/dL Normal 0.55-1.02 [facility] Comment on above: Order Comment: Order Date: 03/20/24Order Info: 666-06 - BMPOrder Info: - LIPIDOrder Date: 11/18/23Order Info: 1920-01 - ASTOrder Info: 1741-11 - ALT Result Comment: The validity of the calculated GFR GFRAA in patients over 70 years has not been determined. Clinical correlation is essential. Performed By: #### L 499.0043 #### [facility] [address] [place], [address] EST GFR - AA 77 mL/min Normal >60 [facility] Comment on above: Order Comment: Order Date: 03/20/24Order Info: 666-06 - BMPOrder Info: - LIPIDOrder Date: 11/18/23Order Info: 1920-01 - ASTOrder Info: 1741-11 - ALT Result Comment: Afri can Tongan GFR Calc Performed By: #### L 499.0043 #### [facility] [address] [place], [address] GAP 7 Normal 5-15 [facility] Comment on above: Order Comment: Order Date: 03/20/24Order Info: 666-06 - BMPOrder Info: - LIPIDOrder Date: 11/18/23Order Info: 1920-01 - ASTOrder Info: 1741-11 - ALT Performed By: #### L 499.0043 #### [facility] [address] [place], [address] GFR/1.73 sq M.predicted among non-blacks MDRD (S/P/Bld) [Vol rate/Area] 63 mL/min/{1.73_m2} Normal >60 [facility] Comment on above: Order Comment: Order Date: 03/20/24Order Info: 666-06 - BMPOrder Info: - LIPIDOrder Date: 11/18/23Order Info: 1920-01 - ASTOrder Info: 1741-11 - ALT Result Comment: Non- GFR Calc Performed By: #### L 499.0043 #### [facility] [address] [place], [address] Glucose [Mass/Vol] 121 mg/dL High 74-106 [facility] Comment on above: Order Comment: Order Date: 03/20/24Order Info: 666-06 - BMPOrder Info: - LIPIDOrder Date: 11/18/23Order Info: 1920-01 - ASTOrder Info: 1741-11 - ALT Result Comment: Fast ing Glucose result from 100 to 125 mg/dL suggests IMPAIRED HOMEOSTASIS per A.D.A. criteria. Performed By: #### L 499.0043 #### [facility] [address] [place], [address] Potassium [Moles/Vol] 4.6 mmol/L Normal 3.5-5.1 [facility] Comment on above: Order Comment: Order Date: 03/20/24Order Info: 666-06 - BMPOrder Info: - LIPIDOrder Date: 11/18/23Order Info: 1920-01 - ASTOrder Info: 1741-11 - ALT Performed By: #### L 499.0043 #### [facility] [address] [place], [address] Sodium [Moles/Vol] 130 mmol/L Low 136-145 [facility] Comment on above: Order Comment: Order Date: 03/20/24Order Info: 666-06 - BMPOrder Info: - LIPIDOrder Date: 11/18/23Order Info: 1920-01 - ASTOrder Info: 1741-11 - ALT Performed By: #### L 499.0043 #### [facility] [address] [place], [address] Urea nitrogen [Mass/Vol] 16 mg/dL Normal 7-18 [facility] Comment on above: Order Comment: Order Date: 03/20/24Order Info: 666-06 - BMPOrder Info: - LIPIDOrder Date: 11/18/23Order Info: 1920-01 - ASTOrder Info: 1741-11 - ALT Performed By: #### L 499.0043 #### [facility] [address] [place], [address] Lipid Profileon 04-17-2024 Cholesterol [Mass/Vol] 160 mg/dL Normal 200 [facility] Comment on above: Order Comment: Order Date: 03/20/24Order Info: 666-06 - BMPOrder Info: - LIPIDOrder Date: 11/18/23Order Info: 1920-01 - ASTOrder Info: 1741-11 - ALT Result Comment: <200 mg/dL Desirable 200-240 mg/dL Borderline >240 mg/dL High Risk Performed By: #### L 509.6001 #### [facility] [address] [place], [address] Cholesterol in HDL [Mass/Vol] 73 mg/dL Normal [facility] Comment on above: Order Comment: Order Date: 03/20/24Order Info: 666-06 - BMPOrder Info: - LIPIDOrder Date: 11/18/23Order Info: 1920-01 - ASTOrder Info: 1741-11 - ALT Result Comment: The drugs N-Acetylcysteine and Metamizole may falsely depress this assay. Reference Range HDL <40 mg/dL Low HDL Cholesterol HDL >or= 60 mg/dL High HDL Cholesterol Performed By: #### L 509.6001 #### [facility] [address] [place], [address] Cholesterol in LDL [Mass/Vol] 71 mg/dL Normal 0-130 [facility] Comment on above: Order Comment: Order Date: 03/20/24Order Info: 666-06 - BMPOrder Info: - LIPIDOrder Date: 11/18/23Order Info: 1920-01 - ASTOrder Info: 1741-11 - ALT Performed By: #### L 509.6001 #### [facility] [address] [place], [address] Cholesterol in VLDL [Mass/Vol] 16 mg/dL Normal 5-40 [facility] Comment on above: Order Comment: Order Date: 03/20/24Order Info: 666-06 - BMPOrder Info: - LIPIDOrder Date: 11/18/23Order Info: 1920-01 - ASTOrder Info: 1741-11 - ALT Performed By: #### L 509.6001 #### [facility] [address] [place], [address] Triglyceride [Mass/Vol] 78 mg/dL Normal [facility] Comment on above: Order Comment: Order Date: 03/20/24Order Info: 0667-1 - BMPOrder Info: 93500-4 - LIPIDOrder Date: 11/18/23Order Info: 19208 - ASTOrder Info: 1742-6 - ALT Result Comment: The drugs N-Acetylcysteine and Metamizole may falsely depress this assay. Serum Triglycerides Reference Interval Normal <150 mg/dL Borderline high 150 - 199 mg/dL High 200 - 499 mg/dL Very High > or = 500 mg/dL Performed By: #### L 509.6001 #### [facility] [address] [place], [address] Protein+Creatinine Ratio,Uri neon 04-17-2024 PROT:CRE RATIO 301 mg/g CRE High 0-200 [facility] Comment on above: Performed By: #### L 500.2500 #### [facility] [address] [place], [address] Protein (U) [Mass/Vol] 20.1 mg/dL High <11.9 [facility] Comment on above: Performed By: #### L 500.2500 #### [facility] [address] [place], [address] UR CREAT 66.70 mg/dL Normal NO RANGE EST. [facility] Comment on above: Performed By: #### L 500.2500 #### [facility] [address] [place], [address] MRI BRAIN WITH PERFUSIONon 1 MRI BRAIN [...] have reviewed and approved this report. Normal [facility] PT Skull base to mid-thighon 03-14-2024 IMPRESSION: [...] No suspicious tracer avid osseous foci. RADIOLOGY RadhamesAnthony granado MD - 03/14/2024 EXAM: NUC PET NEUROENDOCRINE, [...] although residual/recurrent disease cannot be entirely excluded. [facility] Radiology Study observation (narrative) [facility] PT Skull base to mid-thighOr dered By: Anthony Ricci on 03-14-2024 [facility] Work Phone: PT D/C Summary (1)on 024 PT D/C Summary (1) [facility] [address] [place] [address]. [address] [place] [address] / REHABILITATION SERVICES DISCHARGE SUMMARY MR#: [id number] Acct: [id number] Name: SARAH MCGUIREAINE Rep #: [id number] : 1945 78 From: Corey Zhao DPT, [...] LEFS is not improving overall She did pickle solution maker object with two hands, place on walker [...] please feel free to call me at [phone]. Thank you for the referral of this patient. Sincerely, Corey Zhao, DPT, OCS, CSCS Balance/Gait/Functional tests Balance/Special Test Scores Lower Extremity Functional Score: 29 TUG Test Time Seconds: 31 Tug Test: >30sec.=impaired mobility 30 Second Chair Rise Test Seconds: 15 Improvement % Improvement: 25 03/09/24 1623 CC: Dr. 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 progress made in fine motor control manipulation skills as well as overall UB strength. pt to continue exercises and manipulation tasks at home for ongoing progress. d/c sentence: If there are questions or concerns regarding this patient's occupational therapy, please fell free to call me at [phone]. Thank you for the referral of this patient. Sincerely, Lauryn Tubbs 03/01/24 1505 CC: Dr. Monika Venegas MD CK Signed Normal [facility] OT D/C of Non Returning Pton 03-01-2024 OT D/C of Non Returning Pt [facility] [address] [place] [address] / REHABILITATION SERVICES DISCHARGE SUMMARY MR#: [id number] Acct: [id number] Name: SARAH MCGUIRE Rep #: [id number] : 1945 78 From: Lauryn Tubbs Referring [...] CVA. pt seen for improved UB strength [facility] ed in adaptive equipment. pt has progressed [...] Dr. Monika Venegas MD CK Signed Normal [facility] Comprehensive Metabolic Prof ilon 02-24-2024 Albumin [Mass/Vol] 3.9 g/dL Normal 3.2-5.0 [facility] Comment on above: Order Comment: Order Date: 01/17/24Order Info: 0786-1 - CMP Performed By: #### L 500.2500 #### [facility] [address] [place], [address] Albumin/Globulin [Mass ratio] 1.3 {ratio} Normal 0.9-2.4 [facility] Comment on above: Order Comment: Order Date: 01/17/24Order Info: 0786-1 - CMP Performed By: #### L 500.2500 #### [facility] [address] [place], [address] ALK P 81 U/L Normal 45-117 [facility] Comment on above: Order Comment: Order Date: 01/17/24Order Info: 0786-1 - CMP Performed By: #### L 500.2500 #### [facility] [address] [place], [address] ALT [Catalytic activity/Vol] 33 U/L Normal 13-56 [facility] Comment on above: Order Comment: Order Date: 01/17/24Order Info: 0786-1 - CMP Performed By: #### L 500.2500 #### [facility] [address] [place], [address] AST [Catalytic activity/Vol] 22 U/L Normal 15-37 [facility] Comment on above: Order Comment: Order Date: 01/17/24Order Info: 0786-1 - CMP Performed By: #### L 500.2500 #### [facility] [address] [place], [address] Bilirubin [Mass/Vol] 0.80 mg/dL Normal 0.20-1.00 [facility] Comment on above: Order Comment: Order Date: 01/17/24Order Info: 0786-1 - CMP Result Comment: For patients on eltrombopag therapy, use of Dimension [place] TBIL is not recommended. Performed By: #### L 500.2500 #### [facility] [address] [place], [address] BUN/CRE 16.5 RATIO Normal 10-20 [facility] Comment on above: Order Comment: Order Date: 01/17/24Order Info: 0786-1 - CMP Performed By: #### L 500.2500 #### [facility] [address] [place], [address] CA,Total 9.1 mg/dL Normal 8.5-10.1 [facility] Comment on above: Order Comment: Order Date: 01/17/24Order Info: 0786-1 - CMP Performed By: #### L 500.2500 #### [facility] [address] [place], [address] Chloride [Moles/Vol] 96 mmol/L Low 98-107 [facility] Comment on above: Order Comment: Order Date: 01/17/24Order Info: 0786-1 - CMP Performed By: #### L 500.2500 #### [facility] [address] [place], [address] CO2 [Moles/Vol] 27.0 mmol/L Normal 21.0-32.0 [facility] Comment on above: Order Comment: Order Date: 01/17/24Order Info: 0786-1 - CMP Performed By: #### L 500.2500 #### [facility] [address] [place], [address] Creatinine [Mass/Vol] 0.73 mg/dL Normal 0.55-1.02 [facility] Comment on above: Order Comment: Order Date: 01/17/24Order Info: 0786-1 - CMP Result Comment: The validity of the calculated GFR GFRAA in patients over 70 years has not been determined. Clinical correlation is essential. Performed By: #### L 500.2500 #### [facility] [address] [place], [address] EST GFR - AA 99 mL/min Normal >60 [facility] Comment on above: Order Comment: Order Date: 01/17/24Order Info: 0786-1 - CMP Result Comment: Afri can Tongan GFR Calc Performed By: #### L 500.2500 #### [facility] [address] [place], [address] GAP 7 Normal 5-15 [facility] Comment on above: Order Comment: Order Date: 01/17/24Order Info: 07-1 - CMP Performed By: #### L 500.2500 #### [facility] [address] [place], [address] GFR/1.73 sq M.predicted among non-blacks MDRD (S/P/Bld) [Vol rate/Area] 82 mL/min/{1.73_m2} Normal >60 [facility] Comment on above: Order Comment: Order Date: 01/17/24Order Info: 0786-1 - CMP Result Comment: Non- GFR Calc Performed By: #### L 500.2500 #### [facility] [address] [place], [address] Globulin (S) [Mass/Vol] 2.9 g/dL Normal 2.2-4.2 [facility] Comment on above: Order Comment: Order Date: 01/17/24Order Info: 0786-1 - CMP Performed By: #### L 500.2500 #### [facility] [address] [place], [address] Glucose [Mass/Vol] 145 mg/dL High 74-106 [facility] Comment on above: Order Comment: Order Date: 01/17/24Order Info: 0786-1 - CMP Result Comment: Fast ing Glucose result greater than or equal to 126 mg/dL suggests DIABETES MELLITUS per A.D.A. criteria. Performed By: #### L 500.2500 #### [facility] [address] [place], [address] Potassium [Moles/Vol] 3.4 mmol/L Low 3.5-5.1 [facility] Comment on above: Order Comment: Order Date: 01/17/24Order Info: 0786-1 - CMP Performed By: #### L 500.2500 #### [facility] [address] [place], [address] Sodium [Moles/Vol] 130 mmol/L Low 136-145 [facility] Comment on above: Order Comment: Order Date: 01/17/24Order Info: 0786-1 - CMP Performed By: #### L 500.2500 #### [facility] [address] [place], [address] T PROT 6.8 g/dL Normal 6.4-8.2 [facility] Comment on above: Order Comment: Order Date: 01/17/24Order Info: 0786-1 - CMP Performed By: #### L 500.2500 #### [facility] [address] [place], [address] Urea nitrogen [Mass/Vol] 12 mg/dL Normal 7-18 [facility] Comment on above: Order Comment: Order Date: 01/17/24Order Info: 0786-1 - CMP Performed By: #### L 500.2500 #### [facility] [address] [place], [address] Re-Evalution OTon 02-23-2024 Re-Evalution OT [facility] [address] [place] [address] / REEVALUATION / MEDICARE RECERTIFICATION OCCUPATIONAL THERAPY MR#: [id number] Acct: [id number] Name: SARAH MCGUIRE Rep #: [id number] : 1945 78 From: Lauryn Tubbs Referring [...] L bicep 16.2# R bicep 14.1# L welder production line combination 30# R welder production line combination 35# Plan Plan Frequency: 2x /Week Duration: [...] 02/22:14.1# GOAL MET pt will improve L welder production line combination strength to 35 pounds or more in order to maximize I in light IADL tasks as well as cross stitching 01/10/24: 25# 02/22: 30# pt will improve R welder production line combination strength to 30 pounds or more in [...] assistance in order to return to PLOF [place] GOAL MET Anticipated Interventions Anticipated Interventions Anticipated Interventions: A/AAROM/PROM, Strengthening, Joint Protection/Energy Conservation, Fine Motor Coord/[place], Neuro Reeducation, ADL Training, Education re assistive Equipment, Education re Diagnosis, Caregiver Training and Home Program Re-Evaluation Ending Re-evaluation ending: Please do not hesitate to contact me at [phone] by phone or if you have questions or concerns regarding this new plan of care! Sincerely, Lauryn Tubbs 02/23/24 9845 CC: Dr. Monika Venegas MD CK Signed For Medicare only, by signing this I certify the plan of care. Physicians Signature Date Normal [facility] Re-Evaluation - PT (1)on Re-Evaluation - PT (1) [facility] [address] [place] [address] / REEVALUATION / MEDICARE RECERTIFICATION PHYSICAL THERAPY MR#: [id number] Acct: [id number] Name: SARAH MCGUIRE Rep #: [id number] : 1945 78 From: Corey Zhao DPT, [...] weight shift and push it across floor 88 x placing it back on shelf with two hands without LOB. Goal Time Frame: 4-6 Weeks Goal Progress: NEW GOAL Anticipated Interventions Anticipated Interventions Patient/Client Instruction: Educate patient on: Condition For the Purpose of:: To improve gait and locomotor functions Therapeutic Exercise to Include: Strength training and Gait and locomotor training Re-Evaluation Ending Re-evaluation ending: Please do not hesitate to contact me at [phone] by phone or if you have questions or concerns regarding this new plan of care! Sincerely, Corey Zhao, DPT, OCS, CSCS 01/19/24 0902 CC: Dr. Monika Venegas MD EBG Signed For Medicare only, by signing this I certify the plan of care. Physicians Signature Date Normal [facility] 12 Lead EKG performed by [facility] on 01-17-2024 12 Lead EKG performed by [facility] [address] [place] [address] 12 Lead EKG performed by [facility] 01/17/24 1323 MR#: [id number] Acct: [id number] Name: SARAH MCGUIRE Rep #: [id number] : 1945 78 From: Lolly Haro Attending Dr: MAGALY Davis Status: DEP AMB Ordering Dr: Lolly Alejandra Date: 01/04 08/27 [place] [facility] [place]: F C Admitted: BMS/12 Lead EKG performed by [facility] ECG Report Interpretation ---Sinus Bradycardia WITHIN NORMAL LIMITSElectronically signed on 02/07/2024 at 15:56 by German [employer] Version 8610 02/07/24 1601 Date Lolly MCKENZIE CC: Dr. Monika Venegas MD Date Dictated: 01/17/241322 Date Transcribed: 01/17/241322 Director Database: SUSAN Signed Normal [facility] Cardiology Visit Reporton Cardiology Visit Report [facility] [place] [address] OFFICE VISIT Date of Service: 01/17/24 MR#: [id number] Acct: [id number] Name: SARAH MCGUIRE Rep #: [id number] : 1945 Provider: MAGALY Fitzgerald Age/Sex: 78/F [place] [facility] [place] Status: Signed with Addenda ADDENDUM by MAGALY [...] Orders: Orders 12 Lead EKG performed by [facility] Today Z79.899 - Other terminal computer operator (current) drug therapy T4 Free Direct Today I48.0 - Paroxysmal atrial fibrillation, Z79.899 - Other terminal computer operator (current) drug therapy Thyroid Stim Hormone (TSH) Today I48.0 - Paroxysmal atrial fibrillation, Z79.899 - Other usp (current) drug therapy Free T3 Today I48.0 - Paroxysmal atrial fibrillation, Z79.899 - Other terminal computer operator (current) drug therapy Plan Details Follow Up: [...] every 3 months. She is still at [facility] for PT/OT. She is ambulating with [...] 97 Intake Visit Reasons: 6 M FU Trust Operations Assistant Required: No Is patient in pain?: No [...] tabs 08/17/23 (more content not included)... Normal [facility] Basic Metabolic Profile (BMP )on 01-13-2024 BUN/CRE 18.5 RATIO Normal 10-20 [facility] Comment on above: Order Comment: Order Date: 12/19/23Order Info: 0667-1 - BMP Performed By: #### L 500.2500 #### [facility] [address] [place], [address] CA,Total 9.0 mg/dL Normal 8.5-10.1 [facility] Comment on above: Order Comment: Order Date: 12/19/23Order Info: 666-06 - BMP Performed By: #### L 500.2500 #### [facility] [address] [place], [address] Chloride [Moles/Vol] 100 mmol/L Normal 98-107 [facility] Comment on above: Order Comment: Order Date: 12/19/23Order Info: 666-06 - BMP Performed By: #### L 500.2500 #### [facility] [address] [place], [address] CO2 [Moles/Vol] 28.0 mmol/L Normal 21.0-32.0 [facility] Comment on above: Order Comment: Order Date: 12/19/23Order Info: 666-06 - BMP Performed By: #### L 500.2500 #### [facility] [address] [place], [address] Creatinine [Mass/Vol] 0.81 mg/dL Normal 0.55-1.02 [facility] Comment on above: Order Comment: Order Date: 12/19/23Order Info: 666-06 - BMP Result Comment: The validity of the calculated GFR GFRAA in patients over 70 years has not been determined. Clinical correlation is essential. Performed By: #### L 500.2500 #### [facility] [address] [place], [address] EST GFR - AA 87 mL/min Normal >60 [facility] Comment on above: Order Comment: Order Date: 12/19/23Order Info: 666-06 - BMP Result Comment: Afri can Tongan GFR Calc Performed By: #### L [id number] #### [facility] [address] [place], [address] GAP 7 Normal 5-15 [facility] Comment on above: Order Comment: Order Date: 12/19/23Order Info: 666-06 - BMP Performed By: #### L [id number] #### [facility] [address] [place], [address] GFR/1.73 sq M.predicted among non-blacks MDRD (S/P/Bld) [Vol rate/Area] 72 mL/min/{1.73_m2} Normal >60 [facility] Comment on above: Order Comment: Order Date: 12/19/23Order Info: 666-06 - BMP Result Comment: Non- GFR Calc Performed By: #### L [id number] #### [facility] [address] [place], [address] Glucose [Mass/Vol] 161 mg/dL High 74-106 [facility] Comment on above: Order Comment: Order Date: 12/19/23Order Info: 666-06 - BMP Result Comment: Fast ing Glucose result greater than or equal to 126 mg/dL suggests DIABETES MELLITUS per A.D.A. criteria. Performed By: #### L [id number] #### [facility] [address] [place], [address] Potassium [Moles/Vol] 3.3 mmol/L Low 3.5-5.1 [facility] Comment on above: Order Comment: Order Date: 12/19/23Order Info: 666-06 - BMP Performed By: #### L [id number] #### [facility] [address] [place], [address] Sodium [Moles/Vol] 135 mmol/L Low 136-145 [facility] Comment on above: Order Comment: Order Date: 12/19/23Order Info: 666-06 - BMP Performed By: #### L [id number] #### [facility] [address] [place], [address] Urea nitrogen [Mass/Vol] 15 mg/dL Normal 7-18 [facility] Comment on above: Order Comment: Order Date: 12/19/23Order Info: 0667-1 - BMP Performed By: #### L [id number] #### [facility] [address] [place], [address] Re-Evalution OTon 01-10-2024 Re-Evalution OT [facility] [address] [place] [address] / REEVALUATION / MEDICARE RECERTIFICATION OCCUPATIONAL THERAPY MR#: [id number] Acct: [id number] Name: SARAH MCGUIRE Rep #: [id number] : 1945 78 From: Lauryn Tubbs Referring [...] tasks 01/10/24: 9# pt will improve L welder production line combination strength to 35 pounds or more in order to maximize I in light IADL tasks as well as cross stitching 01/10/24: 25# pt will improve R welder production line combination strength to 30 pounds or more in [...] do not hesitate to contact me at [phone] by phone or if you have questions or concerns regarding this new plan of care! Sincerely, Lauryn Tubbs 01/10/24 9599 CC: Dr. Monika Venegas MD CK Signed For Medicare only, by signing this I certify the plan of care. Physicians Signature Date Normal [facility] Basic Metabolic Profile (BMP )on 12-16-2023 BUN/CRE 18.1 RATIO Normal -20 [facility] Comment on above: Order Comment: Order Date: 11/21/23Order Info: 666-06 - BMP Performed By: #### L 500.2500 #### [facility] [address] [place], [address] CA,Total 9.5 mg/dL Normal 8.5-10.1 [facility] Comment on above: Order Comment: Order Date: 11/21/23Order Info: 666-06 - BMP Performed By: #### L [id number] #### [facility] [address] [place], [address] Chloride [Moles/Vol] 96 mmol/L Low 98-107 [facility] Comment on above: Order Comment: Order Date: 11/21/23Order Info: 666-06 - BMP Performed By: #### L [id number] #### [facility] [address] [place], [address] CO2 [Moles/Vol] 26.0 mmol/L Normal 21.0-32.0 [facility] Comment on above: Order Comment: Order Date: 11/21/23Order Info: 666-06 - BMP Performed By: #### L [id number] #### [facility] [address] [place], [address] Creatinine [Mass/Vol] 0.83 mg/dL Normal 0.55-1.02 [facility] Comment on above: Order Comment: Order Date: 11/21/23Order Info: 666-06 - BMP Result Comment: The validity of the calculated GFR GFRAA in patients over 70 years has not been determined. Clinical correlation is essential. Performed By: #### L [id number] #### [facility] [address] [place], [address] EST GFR - AA 85 mL/min Normal >60 [facility] Comment on above: Order Comment: Order Date: 11/21/23Order Info: 666-06 - BMP Result Comment: Afri can Tongan GFR Calc Performed By: #### L [id number] #### [facility] [address] [place], [address] GAP 9 Normal 5-15 [facility] Comment on above: Order Comment: Order Date: 11/21/23Order Info: 666-06 - BMP Performed By: #### L [id number] #### [facility] [address] [place], [address] GFR/1.73 sq M.predicted among non-blacks MDRD (S/P/Bld) [Vol rate/Area] 70 mL/min/{1.73_m2} Normal >60 [facility] Comment on above: Order Comment: Order Date: 11/21/23Order Info: 666-06 - BMP Result Comment: Non- GFR Calc Performed By: #### L [id number] #### [facility] [address] [place], [address] Glucose [Mass/Vol] 98 mg/dL Normal 74-106 [facility] Comment on above: Order Comment: Order Date: 11/21/23Order Info: 666-06 - BMP Performed By: #### L [id number] #### [facility] [address] [place], [address] Potassium [Moles/Vol] 3.4 mmol/L Low 3.5-5.1 [facility] Comment on above: Order Comment: Order Date: 11/21/23Order Info: 666-06 - BMP Performed By: #### L [id number] #### [facility] [address] [place], [address] Sodium [Moles/Vol] 131 mmol/L Low 136-145 [facility] Comment on above: Order Comment: Order Date: 11/21/23Order Info: 666-06 - BMP Performed By: #### L [id number] #### [facility] [address] [place], [address] Urea nitrogen [Mass/Vol] 15 mg/dL Normal 7-18 [facility] Comment on above: Order Comment: Order Date: 11/21/23Order Info: 0667-1 - BMP Performed By: #### L [id number] #### [facility] [address] [place], [address] MRI BRAIN WITH PERFUSIONon 0 12-01-2023 MRI [...] with no evidence of recurrent tumor. Normal [facility] Basophil percentageOrdered B y: Lolly Alejandra on 07-19-2023 Bilirubin [Mass/Vol] 1.00 mg/dL 0.20-1.00 [facility] Comment on above: For patients on eltr ombopag therapy, use of Dimension [place] TBIL is not recommended. Protein [Mass/Vol] 7.2 g/dL 6.4-8.2 [facility] Direct bilirubinOrdered By: Lolly Alejandra on 07-19-2023 Bilirubin.direct [Mass/Vol] 0.32 mg/dL 0.00-0.30 [facility] - Chemistry and C hemistry - challengeOrdered By: Lolly Alejandra on 07-19-2023 ALP [Catalytic activity/Vol] 84 U/L 45-117 [facility] ALT [Catalytic activity/Vol] 29 U/L 13-56 [facility] Globulin (S) [Mass/Vol] 3.0 g/dL 2.2-4.2 [facility] No Panel InformationOrdered By: Lolly Alejandra on 07-19-2023 Free Triiodothyronine (T3) pg/dL 2.1 pg/mL 2.18-3.98 [facility] Serum or plasma thyroid stim ulating hormone (TSH) measurement (units/volume)Ordered By: Lolly Alejandra on 07-19-2023 TSH Qn 2.69 uIU/mL 0.358-3.74 [facility] Thin prep Papanicolaou smear with manual screeningOrdered By: Lolly Alejandra on 07-19-2023 Thin prep Papanicolaou smear with manual screening 4.2 g/dL 3.2-5.0 [facility] Thin prep Papanicolaou smear with manual screening 18 U/L 15-37 [facility] Thin prep Papanicolaou smear with manual screening 1.53 ng/dL 0.76-1.46 [facility] RAD ONC ARIA FRACTION SUMMAR Yon 02-16-2023 Course Elapsed Days 15 [facility] Course First Treatment Date 02/01/2023 12:46 PM [facility] Course ID C1 Meningioma [facility] Course Last Treatment Date 02/16/2023 9:15 AM [facility] Energy 6X [facility] Fraction Number 11 [facility] Plan Dose Delivered to Date 2200 cGy [facility] Plan Fractions Treated to Date 11 [facility] Plan ID L_Fronto_Temp [facility] Plan Prescribed Dose Per Fraction 200 cGy [facility] Plan Primary Reference Point 1.A L_FrontoTemp [facility] Plan Total Fractions Prescribed 30 [facility] Plan Total Prescribed Dose 6000 cGy [facility] Reference Point ID 1.A [facility] Treatment Dates [facility] Radiology Study observation (narrative) [facility] RAD ONC ARIA FRACTION SUMMAR Yon 02-08-2023 Course Elapsed Days 7 [facility] Course First Treatment Date 02/01/2023 12:46 PM [facility] Course ID C1 Meningioma [facility] Course Last Treatment Date 02/08/2023 10:18 AM [facility] Energy 6X [facility] Fraction Number 5 [facility] Plan Dose Delivered to Date 1000 cGy [facility] Plan Fractions Treated to Date 5 [facility] Plan ID L_Fronto_Temp [facility] Plan Prescribed Dose Per Fraction 200 cGy [facility] Plan Primary Reference Point 1.A [facility] Plan Total Fractions Prescribed 30 [facility] Plan Total Prescribed Dose 6000 cGy [facility] Reference Point ID 1.A [facility] Treatment Dates [facility] Radiology Study observation (narrative) [facility] Absolute lymphocyte countOrd ered By: Monika Scruggsvilla on 01-18-2023 Lymphocytes Auto (Unsp spec) [#/Vol] 0.91 10*3/uL 0.83-4.51 [facility] Basophil percentageOrdered B y: Monika Venegas on 01-18-2023 Basophils/100 WBC (Bld) 0.3 % 0-1 [facility] Chloride [Moles/Vol] 98 mmol/L 98-107 [facility] Eosinophils/100 WBC (Bld) 1.5 % 0-5 [facility] Glucose [Mass/Vol] 113 mg/dL 74-106 [facility] Comment on above: Fasting Glucose resu lt from 100 to 125 mg/dL suggests IMPAIRED HOMEOSTASIS per A.D.A. criteria. Neutrophils (Bld) [#/Vol] 6.0 10*3/uL 2.0-7.7 [facility] Neutrophils/100 WBC (Bld) 76.8 % 47-70 [facility] Potassium [Moles/Vol] 4.4 mmol/L 3.5-5.1 [facility] Sodium [Moles/Vol] 132 mmol/L 136-145 [facility] WBC (Bld) [#/Vol] 7.8 10*3/uL 4.4-11.0 [facility] Blood erythrocytes count (nu mber/volume)Ordered By: Monika Venegas on 01-18-2023 RBC (Bld) [#/Vol] 3.40 10*6/uL 4.2-5.4 [facility] Blood hemoglobin measurement (mass/volume)Ordered By: Monika Venegas on 01-18-2023 Hemoglobin (Bld) [Mass/Vol] 10.4 g/dL 12.0-15.0 [facility] Blood lymphocytes/100 leukoc ytesOrdered By: Monika Venegas on 01-18-2023 Lymphocytes/100 WBC (Bld) 11.7 % 19-41 [facility] Blood monocytes/100 leukocyt esOrdered By: Monika Venegas on 01-18-2023 Monocytes/100 WBC (Bld) 9.1 % 0-10 [facility] Blood platelet mean volumeOr dered By: Monika Venegas on 01-18-2023 Platelet mean volume (Bld) [Entitic vol] 10.5 fL 6.2-12.0 [facility] Determination of erythrocyte mean corpuscular volume (MCV)Ordered By: Monika Venegas on 01-18-2023 MCV (RBC) [Entitic vol] 90.6 fL 81-99 [facility] Hematocrit Auto (Bld) [Volum e fraction]Ordered By: Monika Venegas on 01-18-2023 Hematocrit (Bld) [Volume fraction] 30.8 % 37-47 [facility] - Chemistry and C hemistry - challengeOrdered By: Monika Venegas on 01-18-2023 CO2 [Moles/Vol] 30.0 mmol/L 21.0-32.0 [facility] Urea nitrogen/Creatinine [Mass ratio] 22.3 mg/mg 10-20 [facility] - Hematology and Cell countsOrdered By: Monika Venegas on 01-18-2023 Erythrocyte distribution width (RBC) [Entitic vol] 49.6 fL 35.1-43.9 [facility] Erythrocyte distribution width (RBC) [Ratio] 15.1 % 11.6-14.6 [facility] Immature granulocytes/100 WBC (Bld) 0.600 % 0.0-0.9 [facility] Comment on above: IG% - Immature Granu locytes (promyelocytes, myelocytes and metamyelocytes) > 1% indicates that a LEFT SHIFT is Present. MCH (RBC) [Entitic mass] 30.6 pg 27.0-32.0 [facility] Nucleated RBC/100 WBC (Bld) [Ratio] 0 % 0-5 [facility] MCHC Auto (RBC) [Mass/Vol]Or dered By: Monika Venegas on 01-18-2023 MCHC (RBC) [Mass/Vol] 33.8 g/dL 32-36 [facility] No Panel InformationOrdered By: Monika Venegas on 01-18-2023 Estimated GFR (MDRD) Amer 101 mL/min >60 [facility] Comment on above: GFR Calc Estimated GFR (MDRD) Non-Af Amer 83 mL/min >60 [facility] Comment on above: Non- GFR Calc Platelets bldOrdered By: Monika Venegas on 01-18-2023 Platelets (Bld) [#/Vol] 245 10*3/uL 150-450 [facility] Serum or plasma calcium ena urement (mass/volume)Ordered By: Monika Venegas on 01-18-2023 Calcium [Mass/Vol] 9.4 mg/dL 8.5-10.1 [facility] Serum or plasma creatinine m easurement (mass/volume)Ordered By: Monika Venegas on 01-18-2023 Creatinine [Mass/Vol] 0.72 mg/dL 0.55-1.02 [facility] Comment on above: The validity of the calculated GFR & GFRAA in patients over 70 years has not been determined. Clinical correlation is essential. Serum or plasma urea nitroge n measurement (mass/volume)Ordered By: Monika Venegas on 01-18-2023 Urea nitrogen [Mass/Vol] 16 mg/dL 7-18 [facility] Thin prep Papanicolaou smear with manual screeningOrdered By: Monika Venegas on 01-18-2023 Thin prep Papanicolaou smear with manual screening 4 5-15 [facility] Basophil percentageOrdered B y: Jo-Ann Arias on 12-27-2022 Chloride [Moles/Vol] 106 mmol/L 98-107 [facility] Glucose [Mass/Vol] 123 mg/dL 74-106 [facility] Comment on above: Fasting Glucose resu lt from 100 to 125 mg/dL suggests IMPAIRED HOMEOSTASIS per A.D.A. criteria. Potassium [Moles/Vol] 4.2 mmol/L 3.5-5.1 [facility] Sodium [Moles/Vol] 137 mmol/L 136-145 [facility] - Chemistry and C hemistry - challengeOrdered By: Jo-Ann Arias on 12-27-2022 CO2 [Moles/Vol] 27.0 mmol/L 21.0-32.0 [facility] Magnesium [Mass/Vol] 1.7 mg/dL 1.6-2.6 [facility] Urea nitrogen/Creatinine [Mass ratio] 26.9 mg/mg 10-20 [facility] No Panel InformationOrdered By: Jo-Ann Arias on 12-27-2022 Estimated Creatinine Clearance Calc 39.75 ml/min [facility] Estimated GFR (MDRD) Amer 146 mL/min >60 [facility] Comment on above: GFR Calc Estimated GFR (MDRD) Non-Af Amer 121 mL/min >60 [facility] Comment on above: Non- GFR Calc Serum or plasma calcium ena urement (mass/volume)Ordered By: Jo-Ann Arias on 12-27-2022 Calcium [Mass/Vol] 8.8 mg/dL 8.5-10.1 [facility] Serum or plasma creatinine m easurement (mass/volume)Ordered By: Jo-Ann Arias on 12-27-2022 Creatinine [Mass/Vol] 0.52 mg/dL 0.55-1.02 [facility] Comment on above: The validity of the calculated GFR & GFRAA in patients over 70 years has not been determined. Clinical correlation is essential. Serum or plasma urea nitroge n measurement (mass/volume)Ordered By: Jo-Ann Hugo on 12-27-2022 Urea nitrogen [Mass/Vol] 14 mg/dL 7-18 [facility] Thin prep Papanicolaou smear with manual screeningOrdered By: Jo-Ann Arias on 12-27-2022 Thin prep Papanicolaou smear with manual screening 4 5-15 [facility] Absolute lymphocyte countOrd ered By: Isabelankurstaci Jacobo on 12-24-2022 Lymphocytes Auto (Unsp spec) [#/Vol] 0.91 10*3/uL 0.83-4.51 [facility] Basophil percentageOrdered B y: Laura Jacobo on 12-24-2022 Basophils/100 WBC (Bld) 0.4 % 0-1 [facility] Bilirubin [Mass/Vol] 0.70 mg/dL 0.20-1.00 [facility] Comment on above: For patients on eltr ombopag therapy, use of Dimension [place] TBIL is not recommended. Chloride [Moles/Vol] 109 mmol/L 98-107 [facility] Eosinophils/100 WBC (Bld) 0.7 % 0-5 [facility] Glucose [Mass/Vol] 159 mg/dL 74-106 [facility] Comment on above: Fasting Glucose resu lt greater than or equal to 126 mg/dL suggests DIABETES MELLITUS per A.D.A. criteria. Neutrophils (Bld) [#/Vol] 3.9 10*3/uL 2.0-7.7 [facility] Neutrophils/100 WBC (Bld) 67.6 % 47-70 [facility] Potassium [Moles/Vol] 4.2 mmol/L 3.5-5.1 [facility] Protein [Mass/Vol] 5.6 g/dL 6.4-8.2 [facility] Sodium [Moles/Vol] 138 mmol/L 136-145 [facility] WBC (Bld) [#/Vol] 5.7 10*3/uL 4.4-11.0 [facility] Blood erythrocytes count (nu mber/volume)Ordered By: Laura Jacobo on 12-24-2022 RBC (Bld) [#/Vol] 3.29 10*6/uL 4.2-5.4 [facility] Blood hemoglobin measurement (mass/volume)Ordered By: Laura Jacobo on 12-24-2022 Hemoglobin (Bld) [Mass/Vol] 9.7 g/dL 12.0-15.0 [facility] Blood lymphocytes/100 leukoc ytesOrdered By: Laura Jacobo on 12-24-2022 Lymphocytes/100 WBC (Bld) 15.9 % 19-41 [facility] Blood monocytes/100 leukocyt esOrdered By: Laura Jacobo on 12-24-2022 Monocytes/100 WBC (Bld) 13.1 % 0-10 [facility] Blood platelet mean volumeOr dered By: Laura Jacobo on 12-24-2022 Platelet mean volume (Bld) [Entitic vol] 9.9 fL 6.2-12.0 [facility] Determination of erythrocyte mean corpuscular volume (MCV)Ordered By: Laura Jacobo on 12-24-2022 MCV (RBC) [Entitic vol] 91.5 fL 81-99 [facility] Hematocrit Auto (Bld) [Volum e fraction]Ordered By: Laura Jacobo on 12-24-2022 Hematocrit (Bld) [Volume fraction] 30.1 % 37-47 [facility] - Chemistry and C hemistry - challengeOrdered By: Laura Jacobo on 12-24-2022 ALP [Catalytic activity/Vol] 121 U/L 45-117 [facility] ALT [Catalytic activity/Vol] 36 U/L 13-56 [facility] CO2 [Moles/Vol] 23.0 mmol/L 21.0-32.0 [facility] Globulin (S) [Mass/Vol] 2.7 g/dL 2.2-4.2 [facility] Urea nitrogen/Creatinine [Mass ratio] 29.0 mg/mg 10-20 [facility] - Hematology and Cell countsOrdered By: Laura Jacobo on 12-24-2022 Erythrocyte distribution width (RBC) [Entitic vol] 50.5 fL 35.1-43.9 [facility] Erythrocyte distribution width (RBC) [Ratio] 15.2 % 11.6-14.6 [facility] Immature granulocytes/100 WBC (Bld) 2.300 % 0.0-0.9 [facility] Comment on above: IG% - Immature Granu locytes (promyelocytes, myelocytes and metamyelocytes) > 1% indicates that a LEFT SHIFT is Present. MCH (RBC) [Entitic mass] 29.5 pg 27.0-32.0 [facility] Nucleated RBC/100 WBC (Bld) [Ratio] 0 % 0-5 [facility] MCHC Auto (RBC) [Mass/Vol]Or dered By: Laura Jacobo on 12-24-2022 MCHC (RBC) [Mass/Vol] 32.2 g/dL 32-36 [facility] No Panel InformationOrdered By: Laura Jacobo on 12-24-2022 Estimated Creatinine Clearance Calc 39.97 ml/min [facility] Estimated GFR (MDRD) Amer 127 mL/min >60 [facility] Comment on above: GFR Calc Estimated GFR (MDRD) Non-Af Amer 105 mL/min >60 [facility] Comment on above: Non- GFR Calc Platelets bldOrdered By: Isabel Jacobo on 12-24-2022 Platelets (Bld) [#/Vol] 246 10*3/uL 150-450 [facility] Serum or plasma albumin ena urement (mass/volume)Ordered By: Laura Jacobo on 12-24-2022 Albumin [Mass/Vol] 2.9 g/dL 3.2-5.0 [facility] Serum or plasma albumin/glob ulin mass ratioOrdered By: Laura Jacobo on 12-24-2022 Albumin/Globulin [Mass ratio] 1.1 {ratio} 0.9-2.4 [facility] Serum or plasma calcium ena urement (mass/volume)Ordered By: Laura Jacobo on 12-24-2022 Calcium [Mass/Vol] 8.8 mg/dL 8.5-10.1 [facility] Serum or plasma creatinine m easurement (mass/volume)Ordered By: Laura Jacobo on 12-24-2022 Creatinine [Mass/Vol] 0.59 mg/dL 0.55-1.02 [facility] Comment on above: The validity of the calculated GFR & GFRAA in patients over 70 years has not been determined. Clinical correlation is essential. Serum or plasma urea nitroge n measurement (mass/volume)Ordered By: Laura Jacobo on 12-24-2022 Urea nitrogen [Mass/Vol] 17 mg/dL 7-18 [facility] Thin prep Papanicolaou smear with manual screeningOrdered By: Laura Jacobo on 12-24-2022 Thin prep Papanicolaou smear with manual screening 14 U/L 15-37 [facility] Thin prep Papanicolaou smear with manual screening 6 5-15 [facility] No Panel InformationOrdered By: Laura Jacobo on 12-23-2022 Thyroid Stimulating Hormone (TSH) 2.34 uIU/mL 0.358-3.74 [facility] Basophil percentageOrdered B y: Jo-Ann Arias on 12-20-2022 Sodium [Moles/Vol] 137 mmol/L 136-145 [facility] Basophil percentageOrdered B y: Jo-Ann Arias on 12-16-2022 Chloride [Moles/Vol] 103 mmol/L 98-107 [facility] Glucose [Mass/Vol] 127 mg/dL 74-106 [facility] Comment on above: Fasting Glucose resu lt greater than or equal to 126 mg/dL suggests DIABETES MELLITUS per A.D.A. criteria. Potassium [Moles/Vol] 4.2 mmol/L 3.5-5.1 [facility] - Chemistry and C hemistry - challengeOrdered By: Jo-Ann Arias on 12-16-2022 CO2 [Moles/Vol] 27.0 mmol/L 21.0-32.0 [facility] Magnesium [Mass/Vol] 2.1 mg/dL 1.6-2.6 [facility] Urea nitrogen/Creatinine [Mass ratio] 13.3 mg/mg 10-20 [facility] No Panel InformationOrdered By: Jo-Ann Arias on 12-16-2022 Estimated Creatinine Clearance Calc 42.34 ml/min [facility] Estimated GFR (MDRD) Amer 144 mL/min >60 [facility] Comment on above: GFR Calc Estimated GFR (MDRD) Non-Af Amer 119 mL/min >60 [facility] Comment on above: Non- GFR Calc Serum or plasma calcium ena urement (mass/volume)Ordered By: Jo-Ann Arias on 12-16-2022 Calcium [Mass/Vol] 8.8 mg/dL 8.5-10.1 [facility] Serum or plasma creatinine m easurement (mass/volume)Ordered By: Jo-Ann Arias on 12-16-2022 Creatinine [Mass/Vol] 0.53 mg/dL 0.55-1.02 [facility] Comment on above: The validity of the calculated GFR & GFRAA in patients over 70 years has not been determined. Clinical correlation is essential. Serum or plasma urea nitroge n measurement (mass/volume)Ordered By: Jo-Ann Arias on 12-16-2022 Urea nitrogen [Mass/Vol] 7 mg/dL 7-18 [facility] Thin prep Papanicolaou smear with manual screeningOrdered By: Jo-Ann Arias on 12-16-2022 Thin prep Papanicolaou smear with manual screening 4 5-15 [facility] Blood hemoglobin measurement (mass/volume)Ordered By: Jo-Ann Arias on 12-13-2022 Hemoglobin (Bld) [Mass/Vol] 9.8 g/dL 12.0-15.0 [facility] Hematocrit Auto (Bld) [Volum e fraction]Ordered By: Jo-Ann Arias on 12-13-2022 Hematocrit (Bld) [Volume fraction] 29.1 % 37-47 [facility] Glucose Glucometer (BldC) [M ass/Vol]Ordered By: Jo-Ann Arias on 12-10-2022 Glucose [Mass/Vol] 120 mg/dL 74-106 [facility] Comment on above: MANAGEMENT OF PATIEN T CARE PER NURSING PROTOCOL Basophil percentageOrdered B y: Jo-Ann Arias on 12-07-2022 Basophil percentage 3.2 mg/dL 2.5-4.9 [facility] Bilirubin [Mass/Vol] 1.00 mg/dL 0.20-1.00 [facility] Comment on above: For patients on eltr ombopag therapy, use of Dimension [place] TBIL is not recommended. Protein [Mass/Vol] 4.8 g/dL 6.4-8.2 [facility] WBC (Bld) [#/Vol] 10.0 10*3/uL 4.4-11.0 [facility] Blood erythrocytes count (nu mber/volume)Ordered By: Jo-Ann Arias on 12-07-2022 RBC (Bld) [#/Vol] 3.34 10*6/uL 4.2-5.4 [facility] Blood platelet mean volumeOr dered By: Jo-Ann Arias on 12-07-2022 Platelet mean volume (Bld) [Entitic vol] 9.2 fL 6.2-12.0 [facility] Clostridium difficile detect ion by polymerase chain reactionOrdered By: Jo-Ann Arias on 12-07-2022 C. difficile DNA SHAHBAZ+probe Ql (Unsp spec) [facility] Determination of erythrocyte mean corpuscular volume (MCV)Ordered By: Jo-Ann Arias on 12-07-2022 MCV (RBC) [Entitic vol] 88.9 fL 81-99 [facility] Laboratory - Chemistry and C hemistry - challengeOrdered By: Jo-Ann Arias on 12-07-2022 ALP [Catalytic activity/Vol] 74 U/L 45-117 [facility] ALT [Catalytic activity/Vol] 23 U/L 13-56 [facility] Globulin (S) [Mass/Vol] 3.0 g/dL 2.2-4.2 [facility] - Hematology and Cell countsOrdered By: Jo-Ann Arias on 12-07-2022 Erythrocyte distribution width (RBC) [Entitic vol] 46.3 fL 35.1-43.9 [facility] Erythrocyte distribution width (RBC) [Ratio] 14.4 % 11.6-14.6 [facility] MCH (RBC) [Entitic mass] 30.2 pg 27.0-32.0 [facility] MCHC Auto (RBC) [Mass/Vol]Or dered By: Jo-Ann Arias on 12-07-2022 MCHC (RBC) [Mass/Vol] 34.0 g/dL 32-36 [facility] Platelets bldOrdered By: Alyssa Arias on 12-07-2022 Platelets (Bld) [#/Vol] 229 10*3/uL 150-450 [facility] Serum or plasma albumin ena urement (mass/volume)Ordered By: Jo-Ann Hugo on 12-07-2022 Albumin [Mass/Vol] 1.8 g/dL 3.2-5.0 [facility] Serum or plasma albumin/glob ulin mass ratioOrdered By: Jo-Ann Hugo on 12-07-2022 Albumin/Globulin [Mass ratio] 0.6 {ratio} 0.9-2.4 [facility] Stool Clostridium difficile detectionOrdered By: Jo-Ann Arias on 12-07-2022 C. difficile Ql (Stl) [facility] Thin prep Papanicolaou smear with manual screeningOrdered By: Jo-Ann Arias on 12-07-2022 Thin prep Papanicolaou smear with manual screening 16 U/L 15-37 [facility] Absolute lymphocyte counton 11-09-2022 Lymphocytes Auto (Unsp spec) [#/Vol] 1.41 10*3/uL 0.83-4.51 [facility] Basophil percentageon 2022 Basophils/100 WBC (Bld) 0.4 % 0-1 [facility] Chloride [Moles/Vol] 100 mmol/L 98-107 [facility] Eosinophils/100 WBC (Bld) 1.0 % 0-5 [facility] Glucose [Mass/Vol] 108 mg/dL 74-106 [facility] Comment on above: Fasting Glucose resu lt from 100 to 125 mg/dL suggests IMPAIRED HOMEOSTASIS per A.D.A. criteria. Neutrophils (Bld) [#/Vol] 6.1 10*3/uL 2.0-7.7 [facility] Neutrophils/100 WBC (Bld) 72.5 % 47-70 [facility] Potassium [Moles/Vol] 3.8 mmol/L 3.5-5.1 [facility] Sodium [Moles/Vol] 133 mmol/L 136-145 [facility] WBC (Bld) [#/Vol] 8.3 10*3/uL 4.4-11.0 [facility] Blood erythrocytes count (nu mber/volume)on 11-09-2022 RBC (Bld) [#/Vol] 3.93 10*6/uL 4.2-5.4 [facility] Blood hemoglobin measurement (mass/volume)on 11-09-2022 Hemoglobin (Bld) [Mass/Vol] 12.2 g/dL 12.0-15.0 [facility] Blood lymphocytes/100 leukoc yteson 11-09-2022 Lymphocytes/100 WBC (Bld) 16.9 % 19-41 [facility] Blood monocytes/100 leukocyt eson 11-09-2022 Monocytes/100 WBC (Bld) 8.8 % 0-10 [facility] Blood platelet mean volumeon 11-09-2022 Platelet mean volume (Bld) [Entitic vol] 9.8 fL 6.2-12.0 [facility] Determination of erythrocyte mean corpuscular volume (MCV)on 11-09-2022 MCV (RBC) [Entitic vol] 88.3 fL 81-99 [facility] Hematocrit Auto (Bld) [Volum e fraction]on 11-09-2022 Hematocrit (Bld) [Volume fraction] 34.7 % 37-47 [facility] INR in Blood by Coagulation assayon 11-09-2022 INR Coag (Bld) [Relative time] 0.9 {INR} [facility] Laboratory - Chemistry and C hemistry - challengeon 11-09-2022 CO2 [Moles/Vol] 27.0 mmol/L 21.0-32.0 [facility] Urea nitrogen/Creatinine [Mass ratio] 21.3 mg/mg 10-20 [facility] Laboratory - Coagulationon 0 11-09-2022 aPTT Coag (Bld) [Time] 29.1 s 24.1-36.2 [facility] PT Coag (PPP) [Time] 12.5 s 11.7-14.9 [facility] Laboratory - Hematology and Cell countson 11-09-2022 Erythrocyte distribution width (RBC) [Entitic vol] 42.7 fL 35.1-43.9 [facility] Erythrocyte distribution width (RBC) [Ratio] 13.2 % 11.6-14.6 [facility] Immature granulocytes/100 WBC (Bld) 0.400 % 0.0-0.9 [facility] Comment on above: IG% - Immature Granu locytes (promyelocytes, myelocytes and metamyelocytes) > 1% indicates that a LEFT SHIFT is Present. MCH (RBC) [Entitic mass] 31.0 pg 27.0-32.0 [facility] Nucleated RBC/100 WBC (Bld) [Ratio] 0 % 0-5 [facility] MCHC Auto (RBC) [Mass/Vol]on 11-09-2022 MCHC (RBC) [Mass/Vol] 35.2 g/dL 32-36 [facility] No Panel Informationon 11-09 Estimated GFR (MDRD) Amer 103 mL/min >60 [facility] Comment on above: GFR Calc Estimated GFR (MDRD) Non-Af Amer 85 mL/min >60 [facility] Comment on above: Non- GFR Calc Platelets bldon 11-09-2022 Platelets (Bld) [#/Vol] 272 10*3/uL 150-450 [facility] Serum or plasma calcium ena urement (mass/volume)on 11-09-2022 Calcium [Mass/Vol] 9.3 mg/dL 8.5-10.1 [facility] Serum or plasma creatinine m easurement (mass/volume)on 11-09-2022 Creatinine [Mass/Vol] 0.70 mg/dL 0.55-1.02 [facility] Comment on above: The validity of the calculated GFR & GFRAA in patients over 70 years has not been determined. Clinical correlation is essential. Serum or plasma urea nitroge n measurement (mass/volume)on 11-09-2022 Urea nitrogen [Mass/Vol] 15 mg/dL 7-18 [facility] Thin prep Papanicolaou smear with manual screeningon 11-09-2022 Thin prep Papanicolaou smear with manual screening 6 5-15 [facility] EXTRA MICROon 10-09-2022 [facility] SCREEN: MRSA/MSSAOrdered By: Patrick Galicia on 10-09-2022 Interpretation and review of laboratory results Normal [facility] Methicillin Resistant S. Aureus By Pcr Negative Negative [facility] Staphylococcus Aureus By Pcr Negative Negative [facility] This test was perfor med using [...] by the Clinical Microbiology Laboratory at [facility]. It has not been cleared or approved by the FDA.The laboratory is regulated under CLIA as qualified to perform high-complexity testing. This test is used for clinical purposes. It should not be regarded as investigational or for research. [facility] CBC AND ELECTRONIC DIFFon Basophils (Bld) [#/Vol] 0.05 10*3/uL 0.00 - 0.15 K/uL [facility] Basophils/100 WBC (Bld) 0.5 % [facility] Differential cell count method Nom (Bld) Electronic Differential [facility] Eosinophils (Bld) [#/Vol] 0.08 10*3/uL 0.00 - 0.42 K/uL [facility] Eosinophils/100 WBC (Bld) 0.8 % [facility] Erythrocyte distribution width (RBC) [Ratio] 12.9 % 10.8 - 14.9 % [facility] Hematocrit (Bld) [Volume fraction] 38.0 % 34.9 - 44.3 % [facility] Hemoglobin (Bld) [Mass/Vol] 13.0 g/dL 11.4 - 15.2 g/dL [facility] Immature granulocytes (Bld) [#/Vol] 0.05 10*3/uL NINF - 0.08 K/uL [facility] Immature granulocytes/100 WBC (Bld) 0.5 % [facility] Interpretation and review of laboratory results Abnormal [facility] Lymphocytes (Bld) [#/Vol] 1.34 10*3/uL 1.16 - 3.51 K/uL [facility] Lymphocytes/100 WBC (Bld) 13.4 % [facility] MCH (RBC) [Entitic mass] 29.5 pg 25.9 - 33.9 pg [facility] MCHC (RBC) [Mass/Vol] 34.2 g/dL 31.4 - 35.9 g/dL [facility] MCV (RBC) [Entitic vol] 86.2 fL 79.6 - 97.7 fL [facility] Monocytes (Bld) [#/Vol] 0.76 10*3/uL 0.22 - 0.87 K/uL [facility] Monocytes/100 WBC (Bld) 7.6 % [facility] Neutrophils (Bld) [#/Vol] 7.74 10*3/uL High 1.64 - 7.28 K/uL [facility] Nucleated RBC/100 WBC (Bld) [Ratio] 0.0 % [facility] Platelet mean volume (Bld) [Entitic vol] 10.3 fL 8.5 - 12.2 fL [facility] Platelets (Bld) [#/Vol] 280 10*3/uL 150 - 393 K/uL [facility] RBC (Bld) [#/Vol] 4.41 10*6/uL [facility] Segmented neutrophils/100 WBC (Bld) 77.2 % [facility] WBC (Bld) [#/Vol] 10.02 10*3/uL 3.99 - 11 .19 K/uL [facility] CHEM 7 (LYTES,BUN,CREA,GLUC) on 10-08-2022 Anion gap [Moles/Vol] 11 mmol/L 7 - 17 mmol/L [facility] Chloride [Moles/Vol] 93 mmol/L Low 98 - 10 8 mmol/L [facility] CO2 [Moles/Vol] 28 mmol/L 21 - 31 mmol/L [facility] Creatinine [Mass/Vol] 0.72 mg/dL 0.50 - 1.20 mg/dL [facility] GFR/1.73 sq M.predicted CKD-EPI (S/P/Bld) [Vol rate/Area] 86 - PINF [facility] Comment on above: Reported eGFR is bas ed on the CKD-EPI 2021 equation using creatinine, age, and sex. Glucose [Mass/Vol] 106 mg/dL High 70 - 99 mg/dL [facility] Interpretation and review of laboratory results Abnormal [facility] Osmolality Calc [Osmolality] 272 Low [facility] Potassium [Moles/Vol] 4.3 mmol/L 3.5 - 5.0 mmol/L [facility] Sodium [Moles/Vol] 128 mmol/L Low 135 - 145 mmol/L [facility] Urea nitrogen [Mass/Vol] 15 mg/dL 7 - 25 mg/dL [facility] Urea nitrogen/Creatinine [Mass ratio] 21 mg/mg [facility] EXTRA LIGHT BLUE TOP DOUBLE SPINon 10-08-2022 Dummy LRR - Route to Double Spin Received [facility] PREPARE TO TRANSFUSE OR RED BLOOD CELLSon 10-08-2022 [facility] PROTIME-INRon 10-08-2022 INR Coag (Bld) [Relative time] 1.0 {INR} 0.9 - 1.1 [facility] Interpretation and review of laboratory results Normal [facility] PT Coag (PPP) [Time] 13.2 s [facility] PTT W/MIXING STUDY PERF ONLY Ordered By: Adia Ross on 10-08-2022 aPTT Coag (PPP) [Time] 28.7 s OS [facility] PTT Mixing Study With Normal Plasma Not Indicated [facility] TYPE AND SCREEN - PREADMISSI ONon 10-08-2022 ABO/RH(D) TYPE AB NEG [facility] URINALYSIS REFLEX TO CULTURE PERFORMABLEOrdered By: Paula Dixon on 10-08-2022 Appearance (U) Clear Clear [facility] Bacteria LM Ql (Urine sed) TRACE Abnormal ABSENT [facility] Color (U) Yellow Yellow [facility] Epithelial cells.squamous LM Ql (Urine sed) 1/hpf = 1+ 1/hpf = 1+, 2-5/hpf = 2+, 0/hpf = 0+, ABSENT [facility] Glucose Test strip (U) [Mass/Vol] Negative Negative [facility] Interpretation and review of laboratory results Abnormal [facility] Ketones (U) [Mass/Vol] Negative Negative OS [facility] Leukocyte esterase Test strip Ql (U) Trace Abnormal Negative [facility] Nitrite Ql (U) Negative Negative [facility] pH (U) 7.0 [pH] 5.0 - [facility] Protein (U) [Mass/Vol] Negative Negative OS [facility] RBC (U) [#/Vol] Negative Negative [facility] RBC LM.HPF (Urine sed) [#/Area] 0-2 [facility] Specific gravity (U) [Rel density] 1.015 1.001 - PINF [facility] Urobilinogen (U) [Mass/Vol] 0.2 E.U./dL 0.2 E.U/dL, 1.0 E.U/dL [facility] WBC LM.HPF (Urine sed) [#/Area] 0-5 [facility] XR Chest PA and Lateralon IMPRESSION: No [...] Normal IMPRESSION IMPRESSION: No acute cardiopulmonary disease [facility] Radiology Study observation (narrative) [facility] XR Chest PA and LateralOrder ed By: Abraham Bahena on 10-08-2022 [facility] Work Phone: CT Cheston 10-06-2022 IMPRESSION: Agree [...] separately. IMPRESSION IMPRESSION: Agree with outside interpretation. [facility] CT ChestOrdered By: Ernie Coburn on 10-06-2022 [facility] Work Phone: CT Abdomen and Pelvison Outside Imaging Stud y for Support of Clinical Care This study was sent from an outside facility to [facility] for support of clinical care of the patient within the [facility] system. [facility] CT Cheston 10-04-2022 Radiology Study observation (narrative) [facility] Basophil percentageOrdered B y: Dr. Venegas on 09-21-2022 Chloride [Moles/Vol] 101 mmol/L 98-107 [facility] Cholesterol [Mass/Vol] 164 mg/dL <200 [facility] Comment on above: <200 mg/dL Desirable 200-240 mg/dL Borderline >240 mg/dL High Risk Glucose [Mass/Vol] 107 mg/dL 74-106 [facility] Comment on above: Fasting Glucose resu lt from 100 to 125 mg/dL suggests IMPAIRED HOMEOSTASIS per A.D.A. criteria. Potassium [Moles/Vol] 3.7 mmol/L 3.5-5.1 [facility] Sodium [Moles/Vol] 132 mmol/L 136-145 [facility] Triglyceride [Mass/Vol] 97 mg/dL <199 [facility] Comment on above: The drugs N-Acetylcy steine and Metamizole may falsely depress this assay.Serum Triglycerides Reference Interval Normal <150 mg/dL Borderline high 150 - 199 mg/dL High 200 - 499 mg/dL Very High > or = 500 mg/dL Laboratory - Chemistry and C hemistry - challengeOrdered By: Dr. Venegas on 09-21-2022 ALT [Catalytic activity/Vol] 28 U/L 13-56 [facility] CO2 [Moles/Vol] 26.0 mmol/L 21.0-32.0 [facility] Urea nitrogen/Creatinine [Mass ratio] 19.0 mg/mg 10-20 [facility] No Panel InformationOrdered By: Dr. Venegas on 09-21-2022 Estimated GFR (MDRD) Amer 98 mL/min >60 [facility] Comment on above: GFR Calc Estimated GFR (MDRD) Non-Af Amer 81 mL/min >60 [facility] Comment on above: Non- GFR Calc Urine Microalbumin/Creatinine Ratio 21.9 mg/g CRE <30 [facility] Serum or plasma calcium ena urement (mass/volume)Ordered By: Dr. Venegas on 09-21-2022 Calcium [Mass/Vol] 9.3 mg/dL 8.5-10.1 [facility] Serum or plasma cholesterol in HDL measurement (mass/volume)Ordered By: Dr. Venegas on 09-21-2022 Cholesterol in HDL [Mass/Vol] 63 mg/dL >40 [facility] Comment on above: The drugs N-Acetylcy steine and Metamizole may falsely depress this assay. Reference Range HDL <40 mg/dL Low HDL Cholesterol HDL >or= 60 mg/dL High HDL Cholesterol Serum or plasma cholesterol in VLDL measurement (mass/volume)Ordered By: Dr. Venegas on 09-21-2022 Cholesterol in VLDL [Mass/Vol] 19 mg/dL 5-40 [facility] Serum or plasma creatinine m easurement (mass/volume)Ordered By: Dr. Venegas on 09-21-2022 Creatinine [Mass/Vol] 0.74 mg/dL 0.55-1.02 [facility] Comment on above: The validity of the calculated GFR & GFRAA in patients over 70 years has not been determined. Clinical correlation is essential. Serum or plasma low density lipoprotein (LDL) cholesterol measurement (mass/volume)Ordered By: Dr. Venegas on 09-21-2022 Cholesterol in LDL [Mass/Vol] 82 mg/dL 0-130 [facility] Serum or plasma urea nitroge n measurement (mass/volume)Ordered By: Dr. Venegas on 09-21-2022 Urea nitrogen [Mass/Vol] 14 mg/dL 7-18 [facility] Thin prep Papanicolaou smear with manual screeningOrdered By: Dr. Venegas on 09-21-2022 Thin prep Papanicolaou smear with manual screening 18 U/L 15-37 [facility] Thin prep Papanicolaou smear with manual screening 5 5-15 [facility] Thin prep Papanicolaou smear with manual screening 7.6 mg/L NO RANGE EST. [facility] Urine creatinine measurement (mass/volume)Ordered By: Dr. Venegas on 09-21-2022 Creatinine (U) [Mass/Vol] 34.60 mg/dL NO RANGE EST. [facility] Basophil percentageon 2021 Chloride [Moles/Vol] 101 mmol/L 98-107 [facility] Work Phone: Cholesterol [Mass/Vol] 155 mg/dL <200 [facility] Work Phone: Comment on above: <200 mg/dL Desirable 200-240 mg/dL Borderline >240 mg/dL High Risk Glucose [Mass/Vol] 152 mg/dL 74-106 [facility] Work Phone: Comment on above: Fasting Glucose resu lt greater than or equal to 126 mg/dL suggests DIABETES MELLITUS per A.D.A. criteria. Potassium [Moles/Vol] 3.7 mmol/L 3.5-5.1 [facility] Work Phone: Sodium [Moles/Vol] 135 mmol/L 136-145 [facility] Work Phone: [phone] Triglyceride [Mass/Vol] 180 mg/dL <199 [facility] Work Phone: [phone] Comment on above: The drugs N-Acetylcy steine and Metamizole may falsely depress this assay.Serum Triglycerides Reference Interval Normal <150 mg/dL Borderline high 150 - 199 mg/dL High 200 - 499 mg/dL Very High > or = 500 mg/dL Laboratory - Chemistry and C hemistry - challengeon 03-23-2022 ALT [Catalytic activity/Vol] 26 U/L 13-56 [facility] Work Phone: [phone] CO2 [Moles/Vol] 27.0 mmol/L 21.0-32.0 [facility] Work Phone: [phone] Urea nitrogen/Creatinine [Mass ratio] 23.6 mg/mg 10-20 [facility] Work Phone: [phone] Panel Informationon 03-23 Estimated GFR (MDRD) Amer 79 mL/min >60 [facility] Work Phone: [phone] Comment on above: GFR Calc Estimated GFR (MDRD) Non-Af Amer 65 mL/min >60 [facility] Work Phone: [phone] Comment on above: Non- GFR Calc Serum or plasma calcium ena urement (mass/volume)on 03-23-2022 Calcium [Mass/Vol] 9.4 mg/dL 8.5-10.1 [facility] Work Phone: [phone] Serum or plasma cholesterol in HDL measurement (mass/volume)on 03-23-2022 Cholesterol in HDL [Mass/Vol] 53 mg/dL >40 [facility] Work Phone: [phone] Comment on above: The drugs N-Acetylcy steine and Metamizole may falsely depress this assay. Reference Range HDL <40 mg/dL Low HDL Cholesterol HDL >or= 60 mg/dL High HDL Cholesterol Serum or plasma cholesterol in VLDL measurement (mass/volume)on 03-23-2022 Cholesterol in VLDL [Mass/Vol] 36 mg/dL 5-40 [facility] Work Phone: Serum or plasma creatinine m easurement (mass/volume)on 03-23-2022 Creatinine [Mass/Vol] 0.89 mg/dL 0.55-1.02 [facility] Work Phone: Comment on above: The validity of the calculated GFR & GFRAA in patients over 70 years has not been determined. Clinical correlation is essential. Serum or plasma low density lipoprotein (LDL) cholesterol measurement (mass/volume)on 03-23-2022 Cholesterol in LDL [Mass/Vol] 66 mg/dL 0-130 [facility] Work Phone: Serum or plasma urea nitroge n measurement (mass/volume)on 03-23-2022 Urea nitrogen [Mass/Vol] 21 mg/dL 7-18 [facility] Work Phone: Thin prep Papanicolaou smear with manual screeningon 03-23-2022 Thin prep Papanicolaou smear with manual screening 17 U/L 15-37 [facility] Work Phone: Thin prep Papanicolaou smear with manual screening 7 5-15 [facility] Work Phone: Vital Signs Date Time Vital Sign Value Performing Clinician Facility 12-03-2024 22:00-0400 Body temperature 97.8 [degF] Dr. Monika Venegas MD Work Phone: [facility] 12-03-2024 22:00-0400 Diastolic blood pressure 55 mm[Hg] Dr. Monika Venegas MD Work Phone: [facility] 12-03-2024 22:00-0400 Heart rate 60 /min Dr. Monika Venegas MD Work Phone: [facility] 12-03-2024 22:00-0400 Respiratory rate 15 /min Dr. Monika Venegas MD Work Phone: [facility] 12-03-2024 22:00-0400 SaO2% (BldA) [Mass fraction] 97 % Dr. Monika Venegas MD Work Phone: [phone] [place] [address] 12-03-2024 22:00-0400 Systolic blood pressure 159 mm[Hg] Dr. Monika Venegas MD Work Phone: [phone] [place] [address] 12-03-2024 17:32-0400 Body mass index (BMI) [Ratio] 25.3 kg/m2 Dr. Monika Venegas MD Work Phone: [phone] [place] [address] 12-03-2024 17:32-0400 Body weight 49.[address] Monika Venegas MD Work Phone: [phone] [place] [address] 12-03-2024 15:46-0400 Body height 139.[address] Monika Venegas MD Work Phone: [phone] [place] [address] 11-29-2024 08:20-0400 Diastolic blood pressure 44 mm[Hg] Dr. Monika Venegas MD Work Phone: [phone] [place] [address] 11-29-2024 08:20-0400 Heart rate 70 /min Dr. Monika Venegas MD Work Phone: [phone] [place] [address] 11-29-2024 08:20-0400 Systolic blood pressure 126 mm[Hg] Dr. Monika Venegas MD Work Phone: [phone] [place] [address] 11-29-2024 06:18-0400 Body temperature 98.7 [degF] Dr. Monika Venegas MD Work Phone: [phone] [place] [address] 11-29-2024 06:18-0400 Respiratory rate 20 /min Dr. Monika Venegas MD Work Phone: [phone] [place] [address] 11-29-2024 06:18-0400 SaO2% (BldA) [Mass fraction] 97 % Dr. Monika Venegas MD Work Phone: [phone] [place] [address] 11-26-2024 10:00-0400 Body height 139.[address] Monika Venegas MD Work Phone: [phone] [place] [address] 11-26-2024 10:00-0400 Body weight 48.[address] Monika Venegas MD Work Phone: [facility] 11-23-2024 05:03-0400 Body mass index (BMI) [Ratio] 24.7 kg/m2 Dr. Monika Venegas MD Work Phone: [facility] 11-12-2024 11:54-0400 Body height 142.2 cm Ignacio De La Garza Sr., MD, PhD Work Phone: [facility] 11-12-2024 11:54-0400 Body mass index (BMI) [Ratio] 24.89 kg/m2 Ignacio De La Garza Sr., MD, PhD Work Phone: [facility] 11-12-2024 11:54-0400 Body temperature 97.9 [degF] Ignacio De La Garza Sr., MD, PhD Work Phone: [facility] 11-12-2024 11:54-0400 Body weight 50.35 kg Ignacio De La Garza Sr., MD, PhD Work Phone: [facility] 11-12-2024 11:54-0400 Diastolic blood pressure 66 mm[Hg] Ignacio De La Garza Sr., MD, PhD Work Phone: [facility] 11-12-2024 11:54-0400 Heart rate 59 /min Ingacio De La Garza Sr., MD, PhD Work Phone: [facility] 11-12-2024 11:54-0400 Respiratory rate 18 /min Ignacio De La Garza Sr., MD, PhD Work Phone: [facility] 11-12-2024 11:54-0400 SaO2% (BldA) [Mass fraction] 98 % Ignacio De La Garza Sr., MD, PhD Work Phone: [facility] 11-12-2024 11:54-0400 Systolic blood pressure 150 mm[Hg] Ignacio De La Garza Sr., MD, PhD Work Phone: [facility] 11-07-2024 12:00-0400 Diastolic blood pressure 59 mm[Hg] Dr. Monika Venegas MD Work Phone: [facility] 11-07-2024 12:00-0400 Heart rate 58 /min Dr. Monika Venegas MD Work Phone: [facility] 11-07-2024 12:00-0400 Respiratory rate 20 /min Dr. Monika Venegas MD Work Phone: [facility] 11-07-2024 12:00-0400 SaO2% (BldA) [Mass fraction] 100 % Dr. Monika Venegas MD Work Phone: [facility] 11-07-2024 12:00-0400 Systolic blood pressure 194 mm[Hg] Dr. Monika Venegas MD Work Phone: [facility] 11-07-2024 11:07-0400 Body mass index (BMI) [Ratio] 26.1 kg/m2 Dr. Monika Venegas MD Work Phone: [facility] 11-07-2024 11:07-0400 Body temperature 97.9 [degF] Dr. Monika Venegas MD Work Phone: [facility] 11-07-2024 11:07-0400 Body weight [address] Monika Venegas MD Work Phone: [facility] 11-07-2024 10:59-0400 Body mass index (BMI) [Ratio] 24 kg/m2 Dr. Monika Venegas MD Work Phone: [facility] 11-07-2024 10:59-0400 Body weight [address] Monika Venegas MD Work Phone: [facility] 11-07-2024 10:52-0400 Body temperature 98.7 [degF] Dr. Monika Venegas MD Work Phone: [facility] 09-27-2024 13:05-0400 Diastolic blood pressure 64 mm[Hg] Dr. Monika Venegas MD Work Phone: [facility] 09-27-2024 13:05-0400 Heart rate 51 /min Dr. Monika Venegas MD Work Phone: [facility] 09-27-2024 13:05-0400 Respiratory rate 16 /min Dr. Monika Venegas MD Work Phone: [facility] 09-27-2024 13:05-0400 SaO2% (BldA) [Mass fraction] 98 % Dr. Monika Venegas MD Work Phone: [facility] 09-27-2024 13:05-0400 Systolic blood pressure 180 mm[Hg] Dr. Monika Venegas MD Work Phone: [facility] 09-27-2024 09:20-0400 Body height 142.[address] Monika Venegas MD Work Phone: [facility] 09-27-2024 09:20-0400 Body mass index (BMI) [Ratio] 24.8 kg/m2 Dr. Monika Venegas MD Work Phone: [facility] 09-27-2024 09:20-0400 Body temperature 98 [degF] Dr. Monika Venegas MD Work Phone: [facility] 09-27-2024 09:20-0400 Body weight 50.[address] Monika Venegas MD Work Phone: [facility] 07-11-2024 11:09-0500 Body mass index (BMI) [Ratio] 24.98 kg/m2 Andrew Bueno MD Work Phone: [facility] 07-11-2024 11:09-0500 Body temperature 97.5 [degF] Andrew Bueno MD Work Phone: [facility] 07-11-2024 11:09-0500 Body weight 50.53 kg Andrew Bueno MD Work Phone: [facility] 07-11-2024 11:09-0500 Diastolic blood pressure 70 mm[Hg] Andrew Bueno MD Work Phone: [facility] Comment on above: manual 07-11-2024 11:09-0500 Heart rate 57 /min Andrew Bueno MD Work Phone: [facility] 07-11-2024 11:09-0500 Respiratory rate 16 /min Andrew Bueno MD Work Phone: [facility] 07-11-2024 11:09-0500 SaO2% (BldA) [Mass fraction] 97 % Andrew Bueno MD Work Phone: [facility] 07-11-2024 11:09-0500 Systolic blood pressure 162 mm[Hg] Andrew Bueno MD Work Phone: [facility] Comment on above: manual 03-14-2024 15:48-0400 Body mass index (BMI) [Ratio] 25.18 kg/m2 Andrew Bueno MD Work Phone: [facility] 03-14-2024 15:48-0400 Body temperature 97.5 [degF] Andrew Bueno MD Work Phone: [facility] 03-14-2024 15:48-0400 Body weight 50.94 kg Andrew Bueno MD Work Phone: [facility] 03-14-2024 15:48-0400 Diastolic blood pressure 68 mm[Hg] Andrew Bueno MD Work Phone: [facility] 03-14-2024 15:48-0400 Heart rate 56 /min Andrew Bueno MD Work Phone: [facility] 03-14-2024 15:48-0400 Respiratory rate 16 /min Andrew Bueno MD Work Phone: [facility] 03-14-2024 15:48-0400 SaO2% (BldA) [Mass fraction] 98 % Andrew Bueno MD Work Phone: [facility] 03-14-2024 15:48-0400 Systolic blood pressure 140 mm[Hg] Andrew Bueno MD Work Phone: [facility] 03-14-2024 13:56-0400 Diastolic blood pressure 87 mm[Hg] Andrew Bueno MD Work Phone: [facility] 03-14-2024 13:56-0400 Heart rate 55 /min Andrew Bueno MD Work Phone: [facility] 03-14-2024 13:56-0400 Systolic blood pressure 220 mm[Hg] Andrew Bueno MD Work Phone: [facility] 11-29-2023 15:40-0400 Body mass index (BMI) [Ratio] 26.21 kg/m2 Andrew Bueno MD Work Phone: [facility] 11-29-2023 15:40-0400 Body temperature 97.39 [degF] Andrew Bueno MD Work Phone: [facility] 11-29-2023 15:40-0400 Body weight 53.02 kg Andrew Bueno MD Work Phone: [facility] 11-29-2023 15:40-0400 Diastolic blood pressure 60 mm[Hg] Andrew Bueno MD Work Phone: [facility] 11-29-2023 15:40-0400 Heart rate 56 /min Andrew Bueno MD Work Phone: [facility] 11-29-2023 15:40-0400 Respiratory rate 16 /min Andrew Bueno MD Work Phone: [facility] 11-29-2023 15:40-0400 SaO2% (BldA) [Mass fraction] 98 % Andrew Bueno MD Work Phone: [facility] 11-29-2023 15:40-0400 Systolic blood pressure 128 mm[Hg] Andrew Bueno MD Work Phone: [facility] 11-29-2023 13:38-0400 Diastolic blood pressure 77 mm[Hg] Andrew Bueno MD Work Phone: [facility] 11-29-2023 13:38-0400 Heart rate 58 /min Andrew Bueno MD Work Phone: [facility] 11-29-2023 13:38-0400 Systolic blood pressure 199 mm[Hg] Andrew Bueno MD Work Phone: [facility] 08-18-2023 13:25-0400 Diastolic blood pressure 92 mm[Hg] Kristine Salts BRAND ENGINEER-DIRECTOR MARKET RESEARCH Work Phone: [facility] 08-18-2023 13:25-0400 Heart rate 66 /min Kristine Salts BRAND ENGINEER-DIRECTOR MARKET RESEARCH Work Phone: [facility] 08-18-2023 13:25-0400 Systolic blood pressure 202 mm[Hg] Kristine Salts BRAND ENGINEER-DIRECTOR MARKET RESEARCH Work Phone: [facility] 07-19-2023 13:50-0500 Body height 142.[address] Monika Venegas Work Phone: [facility] 07-19-2023 13:49-0500 Body mass index (BMI) [Ratio] 26.4 kg/m2 Dr. Monika Venegas Work Phone: [facility] 07-19-2023 13:49-0500 Body weight 53.[address] Monika Venegas Work Phone: [facility] 07-19-2023 13:49-0500 Diastolic blood pressure 70 mm[Hg] Dr. Monika Venegas Work Phone: [facility] 07-19-2023 13:49-0500 Heart rate 63 /min Dr. Monika Venegas Work Phone: [facility] 07-19-2023 13:49-0500 Respiratory rate 18 /min Dr. Monika Venegas Work Phone: [facility] 07-19-2023 13:49-0500 SaO2% (BldA) [Mass fraction] 99 % Dr. Monika Venegas Work Phone: [facility] 07-19-2023 13:49-0500 Systolic blood pressure 179 mm[Hg] Dr. Monika Venegas Work Phone: [facility] 05-19-2023 14:01-0500 Body mass index (BMI) [Ratio] 27.89 kg/m2 Andrew Bueno MD Work Phone: [facility] 05-19-2023 14:01-0500 Body temperature 97.2 [degF] Andrew Bueno MD Work Phone: [facility] 05-19-2023 14:01-0500 Body weight 56.43 kg Andrew Bueno MD Work Phone: [facility] 05-19-2023 14:01-0500 Diastolic blood pressure 70 mm[Hg] Andrew Bueno MD Work Phone: [facility] 05-19-2023 14:01-0500 Heart rate 68 /min Andrew Bueno MD Work Phone: [facility] 05-19-2023 14:01-0500 Respiratory rate 16 /min Andrew Bueno MD Work Phone: [facility] 05-19-2023 14:01-0500 SaO2% (BldA) [Mass fraction] 98 % Andrew Bueno MD Work Phone: [facility] 05-19-2023 14:01-0500 Systolic blood pressure 142 mm[Hg] Andrew Bueno MD Work Phone: [facility] 03-15-2023 10:29-0400 Body mass index (BMI) [Ratio] 26.9 kg/m2 Andrew Bueno MD Work Phone: 8(841)144-855965 [address] 03-15-2023 10:29-0400 Body temperature 97.9 [degF] Andrew Bueno MD Work Phone: 3(625)045-367565 [address] 03-15-2023 10:29-0400 Body weight 54.43 kg Andrew Bueno MD Work Phone: [facility] 03-15-2023 10:29-0400 Diastolic blood pressure 68 mm[Hg] Andrew Bueno MD Work Phone: [facility] 03-15-2023 10:29-0400 Heart rate 62 /min Andrew Bueno MD Work Phone: [facility] 03-15-2023 10:29-0400 Respiratory rate 16 /min Andrew Bueno MD Work Phone: [facility] 03-15-2023 10:29-0400 SaO2% (BldA) [Mass fraction] 97 % Andrew Bueno MD Work Phone: [facility] 03-15-2023 10:29-0400 Systolic blood pressure 160 mm[Hg] Andrew Bueno MD Work Phone: [facility] 03-08-2023 10:08-0400 Body mass index (BMI) [Ratio] 27.06 kg/m2 Ameya Singh MD Work Phone: [facility] 03-08-2023 10:08-0400 Body temperature 97.9 [degF] Ameya Singh MD Work Phone: 3(039)611-475112 [place] [address] 03-08-2023 10:08-0400 Body weight 54.75 kg Ameya Singh MD Work Phone: 0(846)208-919412 [place] [address] 03-08-2023 10:08-0400 Diastolic blood pressure 66 mm[Hg] Ameya Singh MD Work Phone: 5(747)503-337412 [place] [address] 03-08-2023 10:08-0400 Heart rate 70 /min Ameya Singh MD Work Phone: 7(436)488-978312 [place] [address] 03-08-2023 10:08-0400 Respiratory rate 16 /min Ameya Singh MD Work Phone: 7(070)116-075912 [place] [address] 03-08-2023 10:08-0400 SaO2% (BldA) [Mass fraction] 98 % Ameya Singh MD Work Phone: 8(728)756-642312 [place] [address] 03-08-2023 10:08-0400 Systolic blood pressure 152 mm[Hg] Ameay Singh MD Work Phone: 3(034)667-134212 [place] [address] 03-01-2023 09:59-0400 Body mass index (BMI) [Ratio] 27.15 kg/m2 Andrew Bueno MD Work Phone: 1(035)519-118912 [place] [address] 03-01-2023 09:59-0400 Body temperature 97.59 [degF] Andrew Bueno MD Work Phone: 1(504)363-249012 [place] [address] 03-01-2023 09:59-0400 Body weight 54.93 kg Andrew Bueno MD Work Phone: 4(080)663-699112 [place] [address] 03-01-2023 09:59-0400 Diastolic blood pressure 62 mm[Hg] Andrew Bueno MD Work Phone: [facility] 03-01-2023 09:59-0400 Heart rate 69 /min Andrew Bueno MD Work Phone: 8(532)785-356112 [place] [address] 03-01-2023 09:59-0400 Respiratory rate 16 /min Andrew Bueno MD Work Phone: 3(141)219-182912 [place] [address] 03-01-2023 09:59-0400 SaO2% (BldA) [Mass fraction] 99 % Andrew Bueno MD Work Phone: 8(718)012-343512 [place] [address] 03-01-2023 09:59-0400 Systolic blood pressure 118 mm[Hg] Andrew Bueno MD Work Phone: 5(646)263-045412 [place] [address] 02-15-2023 09:35-0400 Body mass index (BMI) [Ratio] 26.72 kg/m2 Andrew Bueno MD Work Phone: 7(165)952-707312 [place] [address] 02-15-2023 09:35-0400 Body temperature 97.81 [degF] Andrew Bueno MD Work Phone: 7(588)585-240812 [place] [address] 02-15-2023 09:35-0400 Body weight 54.07 kg Andrew Bueno MD Work Phone: 1(780)776-476512 [place] [address] 02-15-2023 09:35-0400 Diastolic blood pressure 62 mm[Hg] Andrew Bueno MD Work Phone: 2(647)175-510612 [place] [address] 02-15-2023 09:35-0400 Heart rate 66 /min Andrew Bueno MD Work Phone: 5(742)671-367112 [place] [address] 02-15-2023 09:35-0400 Respiratory rate 16 /min Andrew Bueno MD Work Phone: 6(538)145-189512 [place] [address] 02-15-2023 09:35-0400 SaO2% (BldA) [Mass fraction] 97 % Andrew Bueno MD Work Phone: [facility] 02-15-2023 09:35-0400 Systolic blood pressure 148 mm[Hg] Andrew Bueno MD Work Phone: [facility] 02-08-2023 10:31-0400 Body mass index (BMI) [Ratio] 27.33 kg/m2 Andrew Beuno MD Work Phone: [facility] 02-08-2023 10:31-0400 Body temperature 97.7 [degF] Andrew Bueno MD Work Phone: 2(039)450-568165 [address] 02-08-2023 10:31-0400 Body weight 55.29 kg Andrew Bueno MD Work Phone: 2(926)409-775965 [address] 02-08-2023 10:31-0400 Diastolic blood pressure 72 mm[Hg] Andrew Bueno MD Work Phone: [facility] 02-08-2023 10:31-0400 Heart rate 69 /min Andrew Bueno MD Work Phone: [facility] 02-08-2023 10:31-0400 Respiratory rate 16 /min Andrew Bueno MD Work Phone: [facility] 02-08-2023 10:31-0400 SaO2% (BldA) [Mass fraction] 98 % Andrew Bueno MD Work Phone: [facility] 02-08-2023 10:31-0400 Systolic blood pressure 150 mm[Hg] Andrew Bueno MD Work Phone: [facility] 01-19-2023 10:59-0400 Body mass index (BMI) [Ratio] 26.3 kg/m2 Andrew Bueno MD Work Phone: [facility] 01-19-2023 10:59-0400 Body temperature 98.1 [degF] Andrew Bueno MD Work Phone: [facility] 01-19-2023 10:59-0400 Body weight 53.21 kg Andrew Bueno MD Work Phone: [facility] 01-19-2023 10:59-0400 Diastolic blood pressure 68 mm[Hg] Andrew Bueno MD Work Phone: 3(799)889-167865 [address] 01-19-2023 10:59-0400 Heart rate 65 /min Andrew Bueno MD Work Phone: 8(868)193-244312 [place] [address] 01-19-2023 10:59-0400 Respiratory rate 16 /min Andrew Bueno MD Work Phone: 3(336)090-906965 [address] 01-19-2023 10:59-0400 SaO2% (BldA) [Mass fraction] 98 % Andrew Bueno MD Work Phone: [facility] 01-19-2023 10:59-0400 Systolic blood pressure 154 mm[Hg] Andrew Bueno MD Work Phone: [facility] 01-13-2023 13:14-0400 Body height 142.[address] Monika Venegas Work Phone: [facility] 01-13-2023 13:14-0400 Body mass index (BMI) [Ratio] 26.2 kg/m2 Dr. Monika Venegas Work Phone: [facility] 01-13-2023 13:14-0400 Body weight 53.[address] Monika Venegas Work Phone: [facility] 01-13-2023 13:14-0400 Diastolic blood pressure 67 mm[Hg] Dr. Monika Venegas Work Phone: [facility] 01-13-2023 13:14-0400 Heart rate 70 /min Dr. Monika Venegas Work Phone: [facility] 01-13-2023 13:14-0400 SaO2% (BldA) [Mass fraction] 99 % Dr. Monika Venegas Work Phone: [facility] 01-13-2023 13:14-0400 Systolic blood pressure 130 mm[Hg] Dr. Monika Venegas Work Phone: [facility] 01-01-2023 07:46-0400 Body temperature 97.6 [degF] Dr. Monika Venegas Work Phone: [facility] 01-01-2023 07:46-0400 Diastolic blood pressure 43 mm[Hg] Dr. Monika Venegas Work Phone: 8(179)056-136629 [address] 01-01-2023 07:46-0400 Heart rate 71 /min Dr. Monika Venegas Work Phone: 5(440)313-066178 [place] [address] 01-01-2023 07:46-0400 Respiratory rate 16 /min Dr. Monika Venegas Work Phone: [facility] 01-01-2023 07:46-0400 SaO2% (BldA) [Mass fraction] 97 % Dr. Monika Venegas Work Phone: [facility] 01-01-2023 07:46-0400 Systolic blood pressure 118 mm[Hg] Dr. Monika Venegas Work Phone: [facility] 12-31-2022 20:30-0400 Body mass index (BMI) [Ratio] 27.1 kg/m2 Dr. Monika Venegas Work Phone: [facility] 12-31-2022 05:15-0400 Body weight [address] Monika Venegas Work Phone: [facility] 12-24-2022 15:11-0400 Body weight 55.[address] Monika Venegas Work Phone: [facility] 12-24-2022 13:54-0400 Body temperature 97.7 [degF] Dr. Monika Venegas Work Phone: [facility] 12-24-2022 13:54-0400 Diastolic blood pressure 52 mm[Hg] Dr. Monika Venegas Work Phone: [facility] 12-24-2022 13:54-0400 Heart rate 79 /min Dr. Monika Venegas Work Phone: [facility] 12-24-2022 13:54-0400 Respiratory rate 18 /min Dr. Monika Venegas Work Phone: [facility] 12-24-2022 13:54-0400 SaO2% (BldA) [Mass fraction] 95 % Dr. Monika Venegas Work Phone: [facility] 12-24-2022 13:54-0400 Systolic blood pressure 115 mm[Hg] Dr. Monika Venegas Work Phone: [facility] 12-23-2022 18:15-0400 Body mass index (BMI) [Ratio] 27.4 kg/m2 Dr. Monika Venegas Work Phone: [facility] 12-23-2022 14:39-0400 Body mass index (BMI) [Ratio] 26.3 kg/m2 Dr. Monika Venegas Work Phone: [facility] 12-23-2022 07:32-0400 Body temperature 97.5 [degF] Dr. Monika Venegas Work Phone: [facility] 12-23-2022 07:32-0400 Diastolic blood pressure 46 mm[Hg] Dr. Monika Venegas Work Phone: [facility] 12-23-2022 07:32-0400 Heart rate 53 /min Dr. Monika Venegas Work Phone: [facility] 12-23-2022 07:32-0400 Respiratory rate 18 /min Dr. Monika Venegas Work Phone: [facility] 12-23-2022 07:32-0400 SaO2% (BldA) [Mass fraction] 97 % Dr. Monika Venegas Work Phone: [facility] 12-23-2022 07:32-0400 Systolic blood pressure 101 mm[Hg] Dr. Monika Venegas Work Phone: [facility] 12-22-2022 14:14-0400 Body height 144.[address] Monika Venegas Work Phone: [facility] 12-22-2022 14:14-0400 Body weight 55.[address] Monika Venegas Work Phone: [facility] 10-09-2022 12:16-0400 Body height 143.5 cm Shaye Weston BRAND ENGINEER-DIRECTOR MARKET RESEARCH Work Phone: [facility] 10-09-2022 12:16-0400 Diastolic blood pressure 61 mm[Hg] Shaye Weston BRAND ENGINEER-DIRECTOR MARKET RESEARCH Work Phone: [facility] 10-09-2022 12:16-0400 Heart rate 63 /min Shaye Weston BRAND ENGINEER-DIRECTOR MARKET RESEARCH Work Phone: [facility] 10-09-2022 12:16-0400 Systolic blood pressure 190 mm[Hg] Shaye Weston BRAND ENGINEER-DIRECTOR MARKET RESEARCH Work Phone: [facility] 10-08-2022 11:24-0400 Body height 142.2 cm Qian Randle MD Work Phone: [facility] 10-08-2022 11:24-0400 Body mass index (BMI) [Ratio] 27.31 kg/m2 Qian Randle MD Work Phone: [facility] 10-08-2022 11:24-0400 Body temperature 98.4 [degF] Qian Randle MD Work Phone: [facility] 10-08-2022 11:24-0400 Body weight 55.25 kg Qian Randle MD Work Phone: [facility] 10-08-2022 11:24-0400 Diastolic blood pressure 80 mm[Hg] Qian Randle MD Work Phone: [facility] 10-08-2022 11:24-0400 Heart rate 55 /min Qian Randle MD Work Phone: [facility] 10-08-2022 11:24-0400 Respiratory rate 16 /min Qian Randle MD Work Phone: [facility] 10-08-2022 11:24-0400 SaO2% (BldA) [Mass fraction] 99 % Qian Randle MD Work Phone: [facility] 10-08-2022 11:24-0400 Systolic blood pressure 128 mm[Hg] Qian Randle MD Work Phone: [facility] 09-30-2022 11:21-0400 Diastolic blood pressure 72 mm[Hg] Ernie Kincaid MD Work Phone: [facility] Comment on above: manual providers aware 09-30-2022 11:21-0400 Systolic blood pressure 196 mm[Hg] Ernie Kincaid MD Work Phone: [facility] Comment on above: manual providers aware 09-30-2022 11:17-0400 Body height 142.2 cm Ernie Kincaid MD Work Phone: [facility] 09-30-2022 11:17-0400 Body mass index (BMI) [Ratio] 26.97 kg/m2 Ernie Kincaid MD Work Phone: [facility] 09-30-2022 11:17-0400 Body temperature 99.39 [degF] Ernie Kincaid MD Work Phone: [facility] 09-30-2022 11:17-0400 Body weight 54.57 kg Ernie Kincaid MD Work Phone: [facility] 09-30-2022 11:17-0400 Heart rate 62 /min Ernie Kincaid MD Work Phone: [facility] 09-30-2022 11:17-0400 Respiratory rate 16 /min Ernie Kincaid MD Work Phone: [facility] 09-30-2022 11:17-0400 SaO2% (BldA) [Mass fraction] 96 % Ernie Kincaid MD Work Phone: [facility] 09-15-2022 13:37-0400 Body height 142.[address] Monika Venegas Work Phone: [facility] 09-15-2022 13:37-0400 Body mass index (BMI) [Ratio] 27.3 kg/m2 Dr. Monika Venegas Work Phone: [facility] 09-15-2022 13:37-0400 Body temperature 97.4 [degF] Dr. Monika Venegas Work Phone: [facility] 09-15-2022 13:37-0400 Body weight 55.[address] Monika Venegas Work Phone: [facility] 09-15-2022 13:37-0400 Diastolic blood pressure 66 mm[Hg] Dr. Monika Venegas Work Phone: [facility] 09-15-2022 13:37-0400 Heart rate 53 /min Dr. Monika Venegas Work Phone: [facility] 09-15-2022 13:37-0400 Respiratory rate 17 /min Dr. Monika Venegas Work Phone: [facility] 09-15-2022 13:37-0400 SaO2% (BldA) [Mass fraction] 99 % Dr. Monika Venegas Work Phone: [facility] 09-15-2022 13:37-0400 Systolic blood pressure 177 mm[Hg] Dr. Monika Venegas Work Phone: [facility] Encounters Encounter Date Encounter Type Care Provider Facility Start: 12-03-2024 Evaluation and manag ement of inpatient Dr. Darnell Gonzalez -[facility] Work Phone: Start: 12-03-[address] Monika Venegas MD Work Phone: -[facility] Start: 11-27-2024 Non-patient / Non-visit Dr. Morro Arias [facility] Work Phone: Start: 11-26-2024 Non-patient / Non-visit Dr. Morro Arias [facility] Work Phone: Start: 11-22-2024 Non-patient / Non-visit Dr. Morro Arias [facility] Work Phone: Start: 2024 Non-patient / Non-visit Dr. Morro Arias [facility] Work Phone: Start: 11-19-2024 Non-patient / Non-visit Dr. Morro Arias [facility] Work Phone: Start: 11-16-2024 Non-patient / Non-visit Dr. Morro Arias [facility] Work Phone: Start: 11-15-2024 Non-patient / Non-visit Dr. Morro Arias [facility] Work Phone: Start: 11-13-2024 Non-patient / Non-visit Dr. Morro Arias [facility] Work Phone: Start: 11-12-2024 ambulatory Jo-Ann Arias Facility:[facility] Start: 11-12-2024 End: 11-29-2024 Evaluation and management of inpatient Dr. Jo-Ann Arias DO -Rehab Unit Work Phone: Start: 11-07-2024 End: 11-12-2024 Evaluation and management of inpatient Ignacio De La Garza MD, PhD Work Phone: [id number] Comment on above: Epidural hematoma Start: 11-07-2024 ambulatory Monika S Jolliff Facility: [facility] Start: 11-07-2024 End: 11-07-2024 Emergency department patient visit Dr. Monika Venegas MD Work Phone: -Emergency Department Work Phone: Start: 09-27-2024 End: 09-27-2024 Emergency department patient visit Dr. Monika Venegas MD Work Phone: -Emergency Department Work Phone: Start: 07-24-2024 End: 07-24-[address] Nati Olvera Work Phone: Start: 07-24-2024 End: 07-24-2024 ambulatory Monika S Jolliff Facility:[facility] Start: 07-11-2024 End: 07-11-2024 Office outpatient visit 25 minutes Andrew Bueno MD Work Phone: Department of Radiation Oncology at [facility] Comment on above: Cancer of cerebral m eninges (Primary Dx); Skin change; Alopecia; S/P radiation therapy Start: 07-11-2024 ambulatory MONIKA S JOLLIFF Facility: [facility] Start: 07-11-2024 End: 07-11-2024 Subsequent hospital visit by physician Kristine ABREU Work Phone: [facility] Comment on above: Arrived Start: 07-11-2024 ambulatory MONIKA S JOLLIFF Facility: [facility] Start: 06-19-2024 End: 06-19-[address] Nati Olvera, Phy Office 3rd Flr Start: 06-19-2024 End: 06-19-2024 ambulatory Monika S Jolliff Facility:[facility] Start: 04-17-2024 End: 04-17-2024 ambulatory Monika S Jolliff Facility:[facility] Start: 03-14-2024 End: 03-14-2024 Office outpatient visit 25 minutes Andrew Bueno MD Work Phone: Department of Radiation Oncology at [facility] Comment on above: Cancer of cerebral m eninges (Primary Dx) Start: 03-14-2024 ambulatory MONIKA S JOLLIFF Facility: [facility] Start: 03-14-2024 End: 03-14-2024 Subsequent hospital visit by physician Andrew Bueno MD Work Phone: Imaging at [facility] Comment on above: Arrived Start: 03-14-2024 ambulatory ANDREW BUENO Facilit y:[facility] Start: 03-14-2024 End: 03-14-2024 Subsequent hospital visit by physician Andrew Bueno MD Work Phone: Imaging [facility] Comment on above: Arrived Start: 03-09-2024 End: 03-09-2024 ambulatory Monika S Jolliff Facility:[facility] Start: 02-24-2024 End: 02-24-2024 ambulatory Monika S Jolliff Facility:[facility] Start: 01-17-2024 End: 01-17-2024 ambulatory Monika S Jolliff Facility:[facility] Start: 01-13-2024 End: 01-13-2024 ambulatory Monika S Jolliff Facility:[facility] Start: 12-16-2023 End: 12-16-2023 ambulatory Monika S Jolliff Facility:[facility] Start: 11-29-2023 End: 11-29-2023 Office outpatient visit 25 minutes Andrew Bueno MD Work Phone: Department of Radiation Oncology at [facility] Comment on above: Cancer of cerebral m eninges (Primary Dx); Neuroendocrine cancer Start: 11-29-2023 ambulatory ANDREW BUENO Facilit y:[facility] Start: 11-29-2023 End: 11-29-2023 Subsequent hospital visit by physician Andrew Bueno MD Work Phone: Imaging at [facility] Comment on above: Arrived Start: 08-18-2023 End: 08-18-2023 Subsequent hospital visit by physician Kristine ABREU Work Phone: Imaging at [facility] Comment on above: Arrived Start: 07-22-[address] Monika hameed Work Phone: [facility] Work Phone: Start: 07-19-2023 End: 07-19-[address] Monika Venegas Work Phone: [facility] Work Phone: Start: 07-19-2023 End: 07-19-[address] Monika Venegas Work Phone: [facility] Work Phone: Start: 05-19-2023 End: 05-19-2023 Office outpatient visit 25 minutes Andrew Bueno MD Work Phone: Department of Radiation Oncology at [facility] Comment on above: Cancer of cerebral m eninges (Primary Dx) Start: 03-16-2023 End: 03-16-2023 Subsequent hospital visit by physician [facility] Department of Radiation Oncology at [facility] Comment on above: Arrived Start: 03-15-2023 End: 03-28-2023 Patient encounter procedure Andrew Bueno MD Work Phone: Department of Radiation Oncology at [facility] Comment on above: Cancer of cerebral m eninges (Primary Dx) Start: 03-14-2023 End: 03-14-2023 Subsequent hospital visit by physician [facility] Lin[place] 1 Department of Radiation Oncology at [facility] Comment on above: Arrived Start: 03-10-2023 End: 03-10-2023 Subsequent hospital visit by physician [facility] 1 Department of Radiation Oncology at [facility] Comment on above: Arrived Start: 03-08-2023 End: 03-08-2023 Patient encounter procedure Andrew Bueno MD Work Phone: Department of Radiation Oncology at [facility] Comment on above: Neuroendocrine cance r (Primary Dx) Start: 03-04-2023 End: 03-04-2023 Subsequent hospital visit by physician [facility] John Linac 1 Department of Radiation Oncology at [facility] Comment on above: Arrived Start: 03-03-2023 End: 03-03-2023 Subsequent hospital visit [facility] 1 Department of Radiation Oncology at [facility] Comment on above: Arrived Start: 03-02-2023 End: 03-02-2023 Subsequent hospital visit by physician [facility] John Lin[place] 1 Department of Radiation Oncology at [facility] Comment on above: Arrived Start: 03-01-2023 End: 03-29-2023 Patient encounter procedure Andrew Bueno MD Work Phone: Department of Radiation Oncology at [facility] Comment on above: Cancer of cerebral m eninges (Primary Dx) Start: 03-01-2023 End: 03-01-2023 Subsequent hospital visit by physician [facility] John Lin[place] 1 Department of Radiation Oncology at [facility] Comment on above: Arrived Start: 02-28-2023 End: 02-28-2023 Subsequent hospital visit by physician [facility] 1 Department of Radiation Oncology at [facility] Comment on above: Arrived Start: 02-24-2023 End: 02-24-2023 Subsequent hospital visit by physician [facility] 1 Department of Radiation Oncology at [facility] Comment on above: Arrived Start: 02-23-2023 End: 02-23-2023 Subsequent hospital visit by physician [facility] 1 Department of Radiation Oncology at [facility] Comment on above: Arrived Start: 02-18-2023 End: 02-18-2023 Subsequent hospital visit by physician [facility] John Lin[place] 1 Department of Radiation Oncology at [facility] Comment on above: Arrived Start: 02-17-2023 End: 02-17-2023 Subsequent hospital visit by physician [facility] Lin[place] 1 Department of Radiation Oncology at [facility] Comment on above: Arrived Start: 02-16-2023 End: 02-16-2023 Subsequent hospital visit by physician [facility] 1 Department of Radiation Oncology at [facility] Comment on above: Arrived Start: 02-15-2023 End: 03-16-2023 Patient encounter procedure Andrew Bueno MD Work Phone: Department of Radiation Oncology at [facility] Comment on above: Cancer of cerebral m eninges (Primary Dx) Start: 02-15-2023 End: 02-15-2023 Subsequent hospital visit by physician Tonia John [place] 1 Department of Radiation Oncology at [facility] Comment on above: Arrived Start: 02-14-2023 End: 02-14-2023 Subsequent hospital visit by physician Tonia John [place] 1 Department of Radiation Oncology at [facility] Comment on above: Arrived Start: 02-11-2023 End: 02-11-2023 Subsequent hospital visit by physician Tonia John [place] 1 Department of Radiation Oncology at [facility] Comment on above: Arrived Start: 02-10-2023 End: 02-10-2023 Subsequent hospital visit by physician Tonia John [place] 1 Department of Radiation Oncology at [facility] Comment on above: Arrived Start: 02-09-2023 End: 02-09-2023 Subsequent hospital visit by physician Tonia John [place] 1 Department of Radiation Oncology at [facility] Comment on above: Arrived Start: 02-08-2023 End: 03-08-2023 Patient encounter procedure Andrew Bueno MD Work Phone: Department of Radiation Oncology at [facility] Comment on above: Cancer of cerebral m eninges (Primary Dx) Start: 02-08-2023 End: 02-08-2023 Subsequent hospital visit by physician Tonia John [place] 1 Department of Radiation Oncology at [facility] Comment on above: Arrived Start: 02-04-2023 End: 02-04-2023 Subsequent hospital visit by physician Tonia John [place] 1 Department of Radiation Oncology at [facility] Comment on above: Arrived Start: 02-03-2023 End: 02-03-2023 Subsequent hospital visit by physician Tonia John [place] 1 Department of Radiation Oncology at [facility] Comment on above: Arrived Start: 02-02-2023 End: 02-02-2023 Subsequent hospital visit by physician Tonia John Lin[place] 1 Department of Radiation Oncology at [facility] Comment on above: Arrived Start: 02-01-2023 End: 02-01-2023 Subsequent hospital visit by physician Andrew Bueno MD Work Phone: Department of Radiation Oncology at [facility] Comment on above: Arrived Start: 01-19-2023 End: [...] 01-18-[address] Monika Venegas Work Phone: [facility] Work Phone: Start: 01-18-2023 End: 01-18-[address] Monika Venegas Work Phone: [facility] Start: 01-13-2023 End: 01-13-[address] Monika Venegas Work Phone: [facility] Work Phone: Start: 01-12-2023 End: 01-12-2023 Subsequent hospital visit by physician Andrew Bueno MD Work Phone: [facility] Comment on above: Arrived Start: 01-12-2023 End: 01-12-2023 Subsequent hospital visit by physician Andrew Bueno MD Work Phone: Department of Radiology Comment on above: Arrived Start: 12-29-2022 Non-patient / Non-visit Dr. Joni Venegas Work Phone: [facility] Work Phone: Start: 12-27-2022 Non-patient / Non-visit Dr. Joni Venegas Work Phone: [facility] Work Phone: Start: 12-24-2022 Non-patient / Non-visit Dr. Joni Venegas Work Phone: [facility] Work Phone: Start: 12-23-2022 End: 12-24-2022 Evaluation and management of inpatient Dr. Monika Venegas Work Phone: [facility] Work Phone: Start: 12-23-2022 End: 12-23-2022 Non-patient / Non-visit Dr. Monika Venegas Work Phone: [facility] Work Phone: Start: 12-23-2022 Non-patient / Non-visit Dr. Joni Venegas Work Phone: [facility] Work Phone: Start: 12-21-2022 Non-patient / Non-visit Dr. Joni Venegas Work Phone: [facility] Work Phone: Start: 12-20-2022 Non-patient / Non-visit Dr. Joni Venegas Work Phone: [facility] Work Phone: Start: 12-17-2022 Non-patient / Non-visit Dr. Joni Venegas Work Phone: [facility] Work Phone: Start: 12-16-2022 Non-patient / Non-visit Dr. Joni Venegas Work Phone: [facility] Work Phone: Start: 12-13-2022 Non-patient / Non-visit Dr. Joni Venegas Work Phone: [facility] Work Phone: Start: 12-10-2022 Non-patient / Non-visit Dr. Joni Venegas Work Phone: [facility] Work Phone: Start: 12-08-2022 Non-patient / Non-visit Dr. Joni Venegas Work Phone: [facility] Work Phone: Start: 12-07-2022 Non-patient / Non-visit Dr. Joni Venegas Work Phone: [facility] Work Phone: Start: 12-06-2022 End: 01-01-2023 Evaluation and management of inpatient Dr. Monika Venegas Work Phone: [facility] Work Phone: Start: 11-09-2022 End: 11-09-[address] Monika Venegas Work Phone: [facility] Work Phone: Start: 11-09-2022 End: 11-09-[address] Monika Venegas Work Phone: [facility]Laboratory Start: 10-29-2022 End: 10-29-[address] Monika Venegas Work Phone: [facility] Work Phone: Start: 10-29-2022 End: 10-29-[address] Monika Venegas Work Phone: [facility]-Cat Scan, [facility] Start: 10-09-2022 End: 10-09-2022 Subsequent hospital visit by physician Shaye Weston BRAND ENGINEER-DIRECTOR [employer] Work Phone: [facility] Comment on above: Arrived Start: 10-08-2022 End: 10-08-2022 Subsequent hospital visit by physician Qian Randle MD Work Phone: Imaging [facility] Comment on above: Arrived Start: 10-08-2022 End: 10-08-2022 Office consultation new/estab patient 60 min Qian Randle MD Work Phone: Pre-Procedure Evaluation and Assessment [facility] Comment on above: Preop exam for inter nal medicine (Primary Dx); Skull mass; Essential hypertension; Hyperlipidemia, unspecified hyperlipidemia type Start: 10-08-2022 End: 10-08-2022 Patient encounter status Qian Randle MD Work Phone: Imaging [facility] Start: 10-04-2022 End: 10-04-2022 Patient encounter procedure [facility] Outside Imaging Ct Scan So Outside Imaging Second Opinion Start: 09-30-2022 End: 09-30-2022 Subsequent hospital visit by physician Joanne Mitchell APRN-DIRECTOR [employer] Work Phone: Outside Imaging Start: 09-30-2022 End: 09-30-[address] Monika Venegas Work Phone: [facility] Work Phone: Start: 09-30-2022 End: 09-30-[address] Monika Venegas Work Phone: [facility] Start: 09-30-2022 End: 09-30-2022 Office outpatient new 45 minutes Ernie Kincaid MD Work Phone: Division of Neuro Surgery at [facility] Comment on above: Skull mass (Primary Dx) Start: 09-28-2022 End: 09-28-[address] Monika Venegas Work Phone: [facility] Start: 09-23-2022 End: 09-23-[address] Monika Venegas Work Phone: [facility] Work Phone: Start: 09-23-2022 End: 09-23-[address] Monika Venegas Work Phone[facility] Start: 09-21-2022 End: 09-21-[address] Monika Venegas Work Phone: [facility] Work Phone: Start: 09-21-2022 End: 09-21-[address] Monika Venegas Work Phone: [facility] Start: 09-15-2022 End: 09-15-[address] Monika Venegas Work Phone: [facility] Start: 05-14-2022 End: 05-14-2022 ambulatory [facility] Work Phone: Start: 05-14-2022 End: 05-14-2022 Patient encounter procedure [facility] Start: 03-23-2022 End: 03-23-2022 ambulatory [facility] Work Phone: Start: 03-23-2022 End: 03-23-2022 Patient encounter procedure [facility] Procedures Date Procedure Procedure Detail Performing Clinician Start: 12-03-2024 Urnls dip stick/tabl et reagent auto microscopy Dr. Monika Venegas MD Work Phone: Start: 12-03-[address] Monika Venegas MD Work Phone: Start: 11-29-[address] Monika Venegas MD Work Phone: Start: 11-28-2024 Osmolality measureme nt, serum Dr. Monika Venegas MD Work Phone: Start: 11-28-2024 Serum inorganic phosphate measurement Dr. Monika Venegas MD Work Phone: Start: 11-25-[address] Monika hameed MD Work Phone: Start: 11-24-2024 Urnls dip stick/tabl et reagent auto microscopy Dr. Monika Venegas MD Work Phone: Start: 11-12-2024 Echo tthrc r-t 2d w/wom-mode compl spec&colr d Angel Melendrez MD Work Phone: Start: 11-12-2024 Creatinine blood Jl [facility] Work Phone: Start: 11-11-2024 Creatinine blood Jl [facility] Work Phone: Start: 11-10-2024 CARDIAC RHYTHM Other Ot her OT Start: 11-10-2024 End: 11-10-2024 Mri brain brain stem w/o w/contrast material Staci Luna MD Work Phone: Start: 11-10-2024 Creatinine blood Jl [facility] Work Phone: Start: 11-09-2024 GENERAL PROCEDURE Shasha Ferraro [facility] Work Phone: Start: 11-09-2024 Assay of magnesium Jl [facility] Work Phone: Start: 11-09-2024 Hepatic function panel Jl [facility] Work Phone: Start: 11-08-2024 IP CONSULT TO SPEECH THERAPY Jl [facility] Work Phone: Start: 11-07-2024 Drug tst prsmv [...] PhD Work Phone: Start: 11-07-2024 Antibody screen MONIKA BRAR Comment on above: Performed By: #### M GO, IPB, CHM7, HFP #### [facility] ([facility]) [address] [place] [address] Start: 11-07-2024 ALCOHOL (ETHANOL),BLOOD Ignacio De La Garza MD, PhD Work Phone: Start: 11-07-2024 End: 11-07-2024 Assay of thyroid stimulating hormone tsh Ignacio De La Garza MD, PhD Work Phone: Start: 11-07-2024 Blood typing serolog ic abo Ignacio De La Garza MD, PhD Work Phone: Start: 11-07-2024 CBC AND ELECTRONIC DIFF Ignacio De La Garza MD, PhD Work Phone: Start: 11-07-2024 Complete blood count with white cell differential, automated Ignacio De La Garza MD, PhD Work Phone: Start: 11-07-2024 GOLD TOP TUBE Ignacio De La Garza MD, PhD Work Phone: Start: 11-07-2024 LAVENDER TOP TUBE Eugenio De La Garza MD, PhD Work Phone: Start: 11-07-2024 LT BLUE TOP TUBE Ignacio De La Garza MD, PhD Work Phone: Start: 11-07-2024 MINT GREEN TOP TUBE José Antonio De La Garza MD, PhD Work Phone: Start: 11-07-2024 RAINBOW DRAW Ignacio De La Garza MD, PhD Work Phone: Start: 11-07-[address] Monika Venegas MD Work Phone: Start: 11-07-2024 CT of head without contrast Dr. Monika Venegas MD Work Phone: Start: 09-27-2024 X-ray of chest, PA a nd lateral views Dr. Monika Venegas MD Work Phone: Start: 09-27-[address] Monika Venegas MD Work Phone: Start: 07-24-2024 Measurement of renal function Dr. Monika Venegas MD Work Phone: Comment on above: GFR Calc Start: 03-14-[address] attenuation skull [...] Work Phone: Start: 10-08-2022 Antibody screen Qian P atel MD Work Phone: Start: 10-08-2022 Blood typing [...] 10-04-2022 Ct thorax w/contrast material Joanne Mitchell BRAND ENGINEER-DIRECTOR [employer] Work Phone: Start: 09-30-2022 CT Abdomen and Pelvis V reyna Mitchell BRAND ENGINEER-DIRECTOR [employer] Work Phone: Start: 09-30-2022 CT of chest and abdomen Dr. Monika Venegas Work Phone: Start: 09-23-2022 CT of head with contrast Dr. Monika Venegas Work Phone: Start: 05-14-2022 Screening mammography History of radiation therapy S/P radiation therapy Andrew Bueno MD Work Phone: Plan of Treatment Date Care Activity Detail Author Start: 11-07-2034 Tetanus vaccination TETANUS [facility] Start: 12-03-2024 Thyroid stimulating hormone measurement [facility] Start: 12-03-2024 Verification routine [facility] Start: 12-03-2024 Admission procedure [facility] Start: 12-03-2024 Hospital admission, emergency, from emergency room, medical nature [facility] Start: 12-03-2024 [facility] Start: 12-03-2024 Bacteria identified in Urine by Culture Urine Culture [facility] Start: 11-29-2024 Consultation for treatment [facility] Start: 11-28-2024 Referral to head stock transfer clerk [facility] Start: 11-28-2024 End: 11-28-2024 Patient encounter procedure 11/28/2024 12:00 PM EDT Office Visit Department of Radiation Oncology at [facility] [place] [id number] [facility] 1[address] [place] [phone] Andrew Bueno MD [address] [place] [address] Department of Radiation Oncology at [facility] Start: 11-28-2024 Patient discharge [facility] Start: 11-25-2024 [facility] Start: 11-23-2024 Referral to service [facility] Start: 11-14-2024 [facility] Start: 11-14-2024 End: 11-14-2024 Patient encounter procedure [facility] Start: 11-13-2024 Application of intermittent pneumatic compression device [facility] Start: 11-13-2024 Recommendation to continue with treatment [facility] Start: 11-13-2024 Speech therapy assessment [facility] Start: 11-12-2024 Recommendation to continue with treatment [facility] Start: 11-12-2024 Admission procedure [facility] Start: 11-12-2024 Measuring intake and output [facility] Start: 11-12-2024 Patient referral to dietitian [facility] Start: 11-12-2024 Vital signs measurements [facility] Start: 11-12-2024 End: 11-12-2024 [facility] Start: 11-07-2024 [facility] Start: 11-07-2024 Oxygen therapy [facility] Start: 11-07-2024 End: 11-07-2024 [facility] Start: 09-27-2024 [facility] Start: 09-27-2024 [facility] Start: 07-11-2024 End: 07-11-2025 MR Brain W contrast IV [facility] Work Phone: Comment on above: 1 Occurrences starti ng 07/11/2024 until 07/11/2024 Expected: 07/11/2024 , Expires: 07/11/2025 Start: 07-11-2024 End: 07-11-2024 Patient encounter procedure [facility] Start: 06-14-2024 End: 03-14-2025 MR Brain W contrast IV MRI BRAIN WITH PERFUSION Imaging Routine Cancer of cerebral meninges Expected: 06/14/2024, Expires: 03/14/2025 [facility] Comment on above: Expected: 06/14/2024 , Expires: 03/14/2025 Start: 03-14-2024 End: 03-14-2024 Patient encounter procedure [facility] at [facility] Start: 03-14-2024 End: 03-14-2024 Patient encounter procedure 03/14/2024 9:30 AM EDT Appointment Imaging [facility] [address] [place] [address] Andrew Bueno MD [address] [place] [address] Imaging [facility] Start: 02-05-2024 Influenza vaccination [facility] Start: 12-07-2023 Potassium [Moles/vol ume] in Serum or Plasma POTASSIUM [facility] Start: 11-29-2023 End: 11-28-2024 MR Brain W contrast IV [facility] Comment on above: 1 Occurrences starti ng 11/29/2023 until 11/29/2023 Expected: 11/29/2023 , Expires: 11/28/2024 Start: 11-29-2023 End: 11-28-2024 PT Skull base to mid-thigh NUC PET NEUROENDOCRINE Imaging Routine Cancer of cerebral meninges Neuroendocrine cancer Expected: 11/29/2023, Expires: 11/28/2024 [facility] Comment on above: Expected: 11/29/2023 , Expires: 11/28/2024 Start: 11-29-2023 End: 11-29-2023 Patient encounter procedure [facility] Start: 10-09-2023 Potassium [Moles/vol ume] in Serum or Plasma POTASSIUM [facility] Start: 08-23-2023 End: 08-23-2023 Telemedicine consultation with patient 08/23/2023 5:30 PM EDT Telemedicine Department of Radiation Oncology at [facility] [place] [address] [place] [phone] Andrew Bueno MD [address] [place] [address] Department of Radiation Oncology at [facility] Start: 08-18-2023 End: 05-19-2024 MR Brain W contrast IV [facility] Comment on above: Expected: 08/18/2023 , Expires: 05/19/2024 1 Occurrences starti ng 08/18/2023 until 08/18/2023 Start: 08-18-2023 End: 08-18-2023 Patient encounter procedure [facility] Start: 05-19-2023 End: 05-19-2023 Patient encounter procedure Department of Radiation Oncology at [facility] Start: 05-19-2023 End: 05-19-2023 Patient encounter procedure [facility] Start: 05-14-2023 Screening for malign ant neoplasm of breast MAMMOGRAM SCREENING DISCUSSION [facility] Start: 03-15-2023 End: 03-15-2024 MR Brain W contrast IV MRI BRAIN WITH PERFUSION Imaging Routine Cancer of cerebral meninges Expected: 03/15/2023, Expires: 03/15/2024 [facility] Comment on above: Expected: 03/15/2023 , Expires: 03/15/2024 Start: 03-15-2023 End: 03-15-2023 Patient encounter procedure 03/15/2023 10:00 AM EDT Office Visit Department of Radiation Oncology at [place] [id number] [address] [place] [id number] Andrew Bueno MD [address] [place] [phone] Department of Radiation Oncology at [facility] Start: 03-08-2023 End: 03-08-2023 Patient encounter procedure Department of Radiation Oncology at [facility] Start: 03-01-2023 End: 03-01-2023 Patient encounter procedure 03/01/2023 10:00 AM EDT Office Visit Department of Radiation Oncology at [place] [address] [address] [place] [id number] Andrew Bueno MD [address] [place] [phone] Department of Radiation Oncology at [facility] Start: 02-22-2023 End: 02-22-2023 Patient encounter procedure 02/22/2023 10:20 AM EDT Office Visit Department of Radiation Oncology at [place] [address] [address] [place] [id number] Andrew Bueno MD [address] [place] [phone] Department of Radiation Oncology at [facility] Start: 02-17-2023 Subsequent hospital visit by physician 02/17/2023 9:09 AM EDT Hospital Encounter Department of Radiation Oncology at [place] [address] [address] [place] [phone] Arrived Department of Radiation Oncology at [facility] Comment on above: Arrived Start: 02-15-2023 End: 02-15-2023 Patient encounter procedure 02/15/2023 9:40 AM EDT Office Visit Department of Radiation Oncology at [place] [address] [address] [place] [phone] Andrew Bueno MD [address] [place] [phone] Department of Radiation Oncology at [facility] Start: 02-08-2023 End: 02-08-2023 Patient encounter procedure 02/08/2023 10:40 AM EDT Office Visit Department of Radiation Oncology at [place] [address] [address] [place] [id number] Andrew Bueno MD [address] [place] [phone] Department of Radiation Oncology at [facility] Start: 02-04-2023 Influenza vaccination INFLUENZA VACC INE (#1) [facility] Start: 02-01-2023 End: 02-01-2023 Patient encounter procedure 02/01/2023 1:00 PM EDT Office Visit Department of Radiation Oncology at [place] [address] [address] [place] [id number] Andrew Bueno MD [address] [place] [phone] Department of Radiation Oncology at [facility] Start: 01-19-2023 End: 01-19-2023 Patient encounter procedure Department of Radiation Oncology Start: 01-02-2023 Patient discharge [facility] Start: 01-01-2023 [facility] Start: 12-31-2022 [facility] Start: 12-29-2022 End: 12-30-2022 [facility] Start: 12-29-2022 [facility] Start: 12-27-2022 Referral to service [facility] Start: 12-24-2022 Patient discharge [facility] Start: 12-24-2022 Care planning and pr oblem solving actions [facility] Start: 12-24-2022 Chart related administrative procedure [facility] Start: 12-23-2022 End: 12-24-2022 [facility] Start: 12-23-2022 Care planning and pr oblem solving actions [facility] Start: 12-23-2022 Cardiac monitoring [facility] Start: 12-23-2022 Admission procedure [facility] Start: 12-23-2022 Provision of activit y privileges [facility] Start: 12-23-2022 Assessment of risk o f venous thromboembolism [facility] Start: 12-23-2022 Insertion of cathete r into peripheral vein [facility] Start: 12-23-2022 Measuring intake and output [facility] Start: 12-23-2022 Providing care accor ding to standard [facility] Start: 12-23-2022 Referral to instrument repair specialist [facility] Start: 12-23-2022 Referral to occupati onal therapist [facility] Start: 12-23-2022 Referral to service [facility] Start: 12-23-2022 Following clinical pathway protocol [facility] Start: 12-23-2022 Patient discharge [facility] Start: 12-23-2022 Patient referral to dietitian [facility] Start: 12-22-2022 [facility] Start: 12-16-2022 [facility] Start: 12-10-2022 Following clinical pathway protocol [facility] Start: 12-09-2022 Application of elast ic bandage [facility] Start: 12-06-2022 Application of intermittent pneumatic compression device [facility] Start: 12-06-2022 [facility] Start: 12-06-2022 Recommendation to continue with treatment [facility] Start: 12-06-2022 Urinary bladder training [facility] Start: 12-06-2022 Wound care [facility] Start: 12-06-2022 Referral to service [facility] Start: 12-06-2022 Admission procedure [facility] Start: 12-06-2022 Patient referral to dietitian [facility] Start: 12-06-2022 Referral to occupati onal therapist [facility] Start: 12-06-2022 Vital signs measurements [facility] Start: 12-06-2022 [facility] Start: 12-06-2022 Speech therapy assessment [facility] Start: 10-28-2022 End: 10-28-2022 Patient encounter procedure 10/28/2022 Office Visit Neurosurgery Neuro Oncology Shaye Weston Staci, BRAND ENGINEER-DIRECTOR MARKET RESEARCH [address] [place] [address] Division of Neuro Surgery at [facility] Start: 10-13-2022 End: 10-13-2022 Craniectomy [...] physician 10/09/2022 Hospital Encounter Magnetic Resonance Imaging MonicaZechariahfelipekleber Eldridge, BRAND ENGINEER-DIRECTOR MARKET RESEARCH [address] [place] [address] Imaging Outpatient Care [facility] Start: 10-07-2022 End: 10-07-2022 Telemedicine consultation with patient 10/07/2022 Telemedicine Neurosurgery Neuro Oncology Ernie Kincaid MD [address] [place] [address] Division of Neuro Surgery at [facility] Start: 09-30-2022 End: 10-01-2023 CT Abdomen and Pelvis W contrast IV CT ABDOMEN/PELVIS WITH CONTRAST Imaging STAT Skull mass Expected: 09/30/2022, Expires: 10/01/2023 [facility] Comment on above: Expected: 09/30/2022 , Expires: 10/01/2023 Start: 09-30-2022 End: 10-01-2023 CT Chest W contrast IV CT CHEST WITH CONTRAST Imaging STAT Skull mass Expected: 09/30/2022, Expires: 10/01/2023 [facility] Comment on above: Expected: 09/30/2022 , Expires: 10/01/2023 Start: 07-24-2022 COVID-19 VACCINE (2 - Moderna series) COVID-19 VACCINE (2 - Moderna series) [facility] Start: 04-20-2022 COVID-19 VACCINE (2 - Moderna risk series) COVID-19 VACCINE (2 - Moderna risk series) [facility] Start: 11-19-2018 RSV VACCINE (1 - 1-d ose 75+ series) RSV VACCINE (1 - 1-dose 75+ series) [facility] Start: 11-19-2008 Pneumococcal vaccination PNEUM OCOCCAL VACCINE SERIES (1 - PCV) [facility] Start: 2003 RSV VACCINE (1 - 1-d ose 60+ series) RSV VACCINE (1 - 1-dose 60+ series) [facility] Start: 11-19-1993 Zoster vaccine hzv l henrietta for subcutaneous use ZOSTER (SHINGLES) VACCINE (1 of 2) [facility] Start: 11-19-1988 Screening for malign ant neoplasm of colon COLORECTAL CANCER SCREENING DISCUSSION [facility] Start: 11-19-1964 Screening for malign ant neoplasm of cervix CERVICAL CANCER SCREENING DISCUSSION [facility] Start: 11-19-1962 Pneumococcal vaccination PNEUM OCOCCAL VACCINE SERIES (1 of 2 - PCV) [facility] Start: 11-19-1962 Third diphtheria, te tanus and acellular pertussis (DTaP) vaccination TDAP (ADULT) [facility] Start: 11-19-1962 Zoster vaccine hzv l henrietta for subcutaneous use ZOSTER (SHINGLES) VACCINE (1 of 2) [facility] Start: 11-19-1949 Pneumococcal vaccination [facility] Start: 05-21-1944 COVID-19 VACCINE (#1) COVID-19 VACCI NE (#1) [facility] Start: 1945 Hepatitis C screening HEPATITI S C VIRUS SCREENING [facility] Start: 1945 Potassium [Moles/vol ume] in Serum or Plasma POTASSIUM [facility] Start: 1945 Screening for osteoporosis DEXA SCAN DISCUSSION [facility] Start: 1945 Tetanus vaccination TETANUS [facility] Basic metabolic 2008 panel with ionized calcium - Serum or Plasma [facility] Cranioplasty skull d efect 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 Skull mass [facility] Cranioplasty skull d efect 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 Skull mass [facility] OR Ecg routine ecg w/le ast 12 lds w/i&r VT ELECTROCARDIOGRAM, COMPLETE VT - OFFICE PERFORMED Routine Preop exam for internal medicine Skull mass Essential hypertension Hyperlipidemia, unspecified hyperlipidemia type Ordered: 10/08/2022 [facility] Comment on above: Ordered: 10/08/2022 End: 11-07-2024 ED US FAST ED US FAST Imaging STAT One Time for 1 Occurrences starting 11/07/2024 until 11/07/2024 [facility] Comment on above: One Time for 1 Occur rences starting 11/07/2024 until 11/07/2024 Folate [Moles/volume ] in Serum or Plasma [facility] Fth/gft free w/direc t closure s/a/l 20 cm/< GRAFT SKIN FULL THICKNESS SCALP (FTSG) Skull mass [facility] Fth/gft free w/direc t closure s/a/l 20 cm/< GRAFT SKIN FULL THICKNESS SCALP (FTSG) Skull mass [facility] Hemoglobin A1c/Hemoglobin.total in Blood [facility] Magnesium measurement [facility] End: 10-09-2022 MR Brain [facility] Work Phone: Comment on above: 1 Occurrences starti ng 10/09/2022 until 10/09/2022 End: 01-12-2023 MR Brain W contrast IV [facility] Comment on above: 1 Occurrences starti ng 01/12/2023 until 01/12/2023 End: 03-14-2024 MR Brain W contrast IV [facility] Comment on above: 1 Occurrences starti ng 03/14/2024 until 03/14/2024 [facility] myoq/fscq flap head&neck w/named vasc pedcl FLAP MUSCLE/MYOCUTANEOUS/FASC IOCUTANEOUS HEAD OR NECK Skull mass [facility] myoq/fscq flap head&neck w/named vasc pedcl FLAP MUSCLE/MYOCUTANEOUS/FASC IOCUTANEOUS HEAD OR NECK Skull mass [facility] Patient Education [facility] Work Phone: Patient referral [facility] Work Phone: End: 01-12-2023 PT Skull base to mid-thigh [facility] Comment on above: 1 Occurrences starti ng 01/12/2023 until 01/12/2023 RAD ONC SIMULATION RAD ONC SIMUL ATION Imaging Routine Neuroendocrine cancer Cancer of cerebral meninges 01/19/2023 2:34 PM EDT [facility] End: 11-07-2024 Standard ECG ECG ECG STAT One Time for 1 Occurrences starting 11/07/2024 until 11/07/2024 [facility] Comment on above: One Time for 1 Occur rences starting 11/07/2024 until 11/07/2024 Troponin T.cardiac [Mass/volume] in Serum or Plasma by High sensitivity method [facility] Urine culture [facility] US Carotid arteries [facility] End: 11-07-2024 VITAMIN D (25-HYDROXY,TOTAL) VITAMIN D (25-HYDROXY,TOTAL) Lab Routine One Time for 1 Occurrences starting 11/07/2024 until 11/07/2024 [facility] Comment on above: One Time for 1 Occur rences starting 11/07/2024 until 11/07/2024 Immunizations Immunization Date Immunization Notes Care Provider Fa néstor 11-07-2024 tetanus and diphther ia toxoids, adsorbed, preservative free, for adult use (5 Lf of tetanus toxoid and 2 Lf of diphtheria toxoid) Ignacio De La Garza Sr., MD, PhD Work Phone: [facility] 03-23-2022 influenza virus vaccine, unspecified formulation Andrew Bueno MD Work Phone: [facility] 04-06-2020 Influenza virus vaccine [facility] Payers Date Payer Category Payer Self-pay [id number] 2022 Medicare [id number] 2019 Managed Care (unspecified) MEDICARE SUPPLEMENT [id number] 2019 Unknown [place] [id number] 2019-Present [phone] [address] [place] [id number] 2019 Unknown [id number] 2008 Medicare [id number] 1945 Unknown [id number] .840.1.183795.3.579. 2.594 1943 Unknown [id number] .1.172992.3.579. 2.594 1943 Unknown [id number] 2.840.1.119536.3.579. 2.594 1943 Unknown [id number] 2.840.1.750527.3.579. 2.594 1943 Unknown [id number] 2.840.1.543155.3.579. 2.594 1943 Unknown [id number] 2.840.1.302492.3.579. 2.594 1943 Unknown [id number] .0.1.969994.3.579. 2.594 1943 Unknown [id number] .0.1.841141.3.579. 2.594 Medicare MEDICARE O OTHER [id number] Private Health Insurance [facility] [id number] Unknown [id number] 2.840.1.974303.3.579. 2.462 Unknown [id number] 2.840.1.340215.3.579. 2.462 Unknown [id number] 2.840.1.165613.3.579. 2.462 Unknown [id number] 2.840.1.709604.3.579. 2.462 Unknown [id number] 2.840.1.403498.3.579. 2.462 Unknown [id number] 2.840.1.345790.3.579. 2.462 Unknown [id number] 2.840.1.073601.3.579. 2.462 Unknown [id number] 2.840.1.428143.3.579. 2.462 Unknown [id number] 2.840.1.239875.3.579. 2.462 Unknown [id number] 2.16.840.1.444904.3.579. 2.462 Unknown [id number] 2.16.840.1.512185.3.579. 2.462 Unknown [id number] 2.16.840.1.906909.3.579. 2.462 Unknown [id number] 2.16840.1.022851.3.579. 2.462 Unknown [id number] 2.16840.1.788472.3.579. 2.462 Unknown [id number] 2.16840.1.436584.3.579. 2.462 Unknown [id number] 2.16840.1.782620.3.579. 2.462 Unknown [id number] 2.16840.1.581567.3.579. 2.462 Unknown [id number] 2.16840.1.259142.3.579. 2.462 Unknown [id number] 2.840.1.479840.3.579. 2.462 Unknown [id number] 2.840.1.395815.3.579. 2.462 Social History Date Type Detail Facility Start: 07-31-2021 End: 07-19-2023 Tobacco smoking status SDIS Unknown if ever smoked [facility] Start: 08-28-2020 Alone [facility] Start: 08-14-2020 Non-smoker [facility] Start: 1945 Sex Assigned At Female [facility] Start: 1945 Sex Assigned At Not on file [facility] Start: 10-04-2022 End: 12-03-2024 Tobacco smoking status NHIS Never smoked tobacco [facility] Start: 10-04-2022 Tobacco use and exposure Smokeless tobacco non-user [facility] Start: 10-04-2022 End: 10-08-2022 Alcohol intake Current drinker of alcohol (finding) [facility] Start: 10-04-2022 Alcohol Comment socially once a year [facility] Start: 01-12-2023 End: 11-04-2024 Alcohol intake Ex-drinker (finding) [facility] Start: 11-18-2022 End: 07-11-2024 History of Social function [facility] Start: 11-18-2022 End: 07-11-2024 Alcohol Use Disorder Identification Test - Consumption [AUDIT-C] [facility] How often to you hav e a drink containing alcohol? Monthly or less [facility] How many standard dr inks containing alcohol do you have on a typical day? 1 or 2 [facility] How often do you hav e 6 or more drinks on 1 occasion? Never [facility] (I/We) worried mark anthony er (my/our) food would run out before (I/we) got money to buy more. Never true [facility] In the past 12 month s, has lack of transportation kept you from medical appointments or from getting medications? No [facility] In the past 12 month s, was there a time when you were not able to pay the mortgage or rent on time? No [facility] Start: 11-09-2022 End: 11-19-2022 Exposure to SARS-CoV-2 (event) Not sure [facility] Start: 07-08-2024 Gender identity Identifies as female gender (finding) [facility] Start: 07-08-2024 Sexual orientation Heterosexual (finding) [facility] Start: 09-27-2022 End: 09-27-2024 Sex Female (finding) [facility] Medical Equipment Procedure Code Equipment Code Equipment Original Text Equipment Identifier Dates Sealant Dural Ad herus Autospray Et - [id number] Start: 11-16-2022 Screw Bone 5mm 1 .8mm Emergency Craniofacial Level One - [id number] Start: 11-24-2022 Clearfit Cranial Implant [id number] Start: 11-25-2022 Clearfit Cranial Implant [id number] Start: 11-16-2022 Patch Dural 3x3i n Durepair Substitute - [id number] Start: 11-16-2022 Screw Bone 5mm 1 .8mm Emergency Craniomaxillofacial Level One - [id number] Start: 11-24-2022 Patch Dural 7x5i n Thk3.5mm Craniomaxillofacial - [id number] Start: 11-24-2022 Mesh Titanium 3m m Regular Cranial Screen Panel - [id number] Start: 11-24-2022 Plate Bone .6mm Curve Craniomaxillofacial 5x2 Hole Low - [id number] Start: 11-24-2022 Plate Bn .6mm Cr nmxf 3x2 Hl Lwpr Crv Seg Ti Nst - [id number] Start: 11-24-2022 Cover [place] Hole Craniofacial .3mm 15mm Ultra Low Profile - [id number] Start: 11-24-2022 Screw Bone 5mm 1 .5mm Craniomaxillofacial Level One - [id number] Start: 11-24-2022 Screw Bone Drill Free Craniomaxillofacial Titanium Level One - [id number] Start: 11-25-2022 Cover Bur Hl Crn mxf .4mm 17mm Matrixneuro Ti Nst Eddie - [id number] Start: 11-24-2022 Cover Bur Hl Crn mxf .4mm 17mm Matrixneuro Ti Nst Eddie - [id number] Start: 11-16-2022 Screw 1.5x4mm 04.503.104.01 - [id number] Start: 11-24-2022 Screw 1.5x4mm 04.503.104.01 - [id number] Start: 11-16-2022 Cover Bur Hl Crn mxf .4mm 15mm Matrixneuro Ti Nst Eddie - [id number] Start: 11-24-2022 Cover Bur Hl Crn mxf .4mm 15mm Matrixneuro Ti Nst Eddie - [id number] Start: 11-16-2022 Cover Kylie Hole Craniomaxillofacial .4mm 24mm Matrixneuro - [id number] Start: 11-24-2022 Cover [place] Hole Craniomaxillofacial .4mm 24mm Matrixneuro - [id number] Start: 11-16-2022 Mesh Matrixneuro [id number].6mm Titanium Cranial Rigid - [id number] Start: 11-24-2022 Mesh Matrixneuro [id number].6mm Titanium Cranial Rigid - [id number] Start: 11-16-2022 Goals Date Patient Goal Desired Activity /State Functional Status Date Assessment Result Facility 11-29-2024 Functional status Activity Abili ty With Assist of 1 [facility] Work Phone: 11-27-2024 Functional status Ambulates [facility] Work Phone: 11-08-2024 Are you deaf, or do you have serious difficulty hearing Yes 11/08/2024 4:11 PM EDT Shelby Mae, MICAH Yes [facility] 11-08-2024 Are you blind, or do you have serious difficulty seeing, even when wearing glasses No 11/08/2024 4:11 PM Shelby Montano RN No [facility] 11-08-2024 Do you have serious difficulty walking or climbing stairs Yes 11/08/2024 4:11 PM Shelby Montano RN Yes [facility] 11-08-2024 Do you have difficul ty dressing or bathing No 11/08/2024 4:11 PM Shelby Montano, MICAH No [facility] 11-08-2024 Because of a physica l, mental, or emotional condition, do you have difficulty doing errands alone such as visiting a physician's office or shopping No 11/08/2024 4:11 PM Shelby Montano RN No [facility] 01-06-2023 Are you deaf, or do you have serious difficulty hearing Yes 01/06/2023 9:52 AM Hansa Patiño, MICAH Yes [facility] 01-06-2023 Are you blind, or do you have serious difficulty seeing, even when wearing glasses No 01/06/2023 9:52 AM Hansa Patiño, MICAH No [facility] 01-06-2023 Do you have serious difficulty walking or climbing stairs Yes 01/06/2023 9:52 AM Hansa Patiño, MICAH Yes [facility] 01-06-2023 Do you have difficul ty dressing or bathing No 01/06/2023 9:52 AM Hansa Patiño, MICAH No [facility] 01-06-2023 Because of a physica l, mental, or emotional condition, do you have difficulty doing errands alone such as visiting a physician's office or shopping No 01/06/2023 9:52 AM Hansa Patiño, MICAH No [facility] 01-01-2023 Functional status Activity Abili ty Standby Assist [facility] Work Phone: 12-31-2022 Functional status Chair [facility] Work Phone: 12-24-2022 Functional status Ambulates [facility] Work Phone: 12-23-2022 Functional status Ambulates [facility] Work Phone: Mental Status Date Assessment Result Facility 12-03-2024 Cognitive function Voice/Name [facility] Work Phone: 11-29-2024 Cognitive function Voice/Name [facility] Work Phone: 11-08-2024 Because of a physica l, mental, or emotional condition, do you have serious difficulty concentrating, remembering, or making decisions No 11/08/2024 4:11 PM Shelby Montano, MICAH No [facility] 11-07-2024 Cognitive function Voice/Name [facility] Work Phone: 09-27-2024 Cognitive function Awake;Alert;A ppropriate; Follows Commands [facility] Work Phone: 01-06-2023 Because of a physica l, mental, or emotional condition, do you have serious difficulty concentrating, remembering, or making decisions No 01/06/2023 9:52 AM EDT Hansa Hernandez, RN No [facility] 01-01-2023 Cognitive function Voice/Name [facility] Work Phone: 12-24-2022 Cognitive function Voice/Name [facility] Work Phone: 12-23-2022 Cognitive function Voice/Name [facility] Work Phone: Clinical Notes 09-30-2022 to 12-03-2024 Note Date & Type Note Facility 12-03-2024 Discharge summary [facility] 12-03-2024 Discharge summary Note Date/Time December 03, 2024 10:25pm [facility] Medical Records Department [address] [place] [address] Emergency Department Summary 12/03/24 MR#: [id number] Acct: [id number] Name: SARAH MGCUIRE Rep #:[id number] : 1945 79 From: Hayden Sadler DO PCP: Dr. Monika Venegas MD Status:REG ER Location: ED HPI History of Present Illness Chief Complaint: Weakness Narrative Narrative: Patient is a 79-year-old female past medical history of CVA, grade 2 diastolic dysfunction, mitral stenosis, pulmonary hypertension, hypercholesteremia, hypertension who presented to the emergency department chief complaint of generalized weakness. According to the daughter at bedside who provided most ofhistory present illness she states that on she was released from rehab and states that for the last several days she has been extremely weak and shaky. States that periodically her legs are giving out on her. She states that her sodium have been low and they have been restricting her to 40 mL of water daily which they have been hearing to and she states in fact there is a chance that she is actually not drinking enough. They deny other complaints. Daughter at bedside states that she has been acting her normal self [facility] Medical History Presbycusis History of rheumatic fever as a child Grade II diastolic dysfunction Ischemic cerebrovascular accident (CVA) Intracranial epidural hematoma Cerebrovascular disease Mitral stenosis Pulmonary hypertension Stroke/cerebrovascular [...] 200 mg tablet 200 mg PO DAILY heart #90 TA BLETS 12/12/23 11/12/24 08:30 Rx atorvastatin 10 mg tablet 10 mg PO QHS for cholesterol #90 12/12/23 11/11/24 21:08 Rx TABLETS apixaban 2.5 mg tablet 2.5 mg PO BID called to Disc ount 08/13/24 09/27/24 Rx [facility] tabs acetaminophen 325 mg capsule 325 mg PO Q4H PRN pain 11/12/24 13:15 History hydralazine 50 mg tablet 50 mg PO TID #90 tabs Unknown Rx levetiracetam 750 mg tablet 750 mg PO BID #60 tabs Unknown Rx sodium chloride 1,000 mg soluble 1,000 mg PO TIDCM #90 tabs 11/27/24 Unknown Rx tablet Allergy/AdvReac Type Severity Reaction Status Date / Time No Known Allergies Allergy Verified 12/03/24 15:46 Family History Father CVA (cerebral vascular accident) Heart disease Mother Diabetes Surgical History H/O craniotomy Status post hemorrhoidectomy (~08/19/20) S/P carpal tunnel release S/P bilateral breast reduction S/P hysterectomy Social History household members: children and other details: BRADY Upton lives with her. housing: house current occupational status: retired Smoking Status: Never smoker alcohol intake: never ROS ROS ED ROS Narrative Constitutional: Denies any fevers, chills, headaches Eyes: Denies double vision blurry vision changes vision Cardiovascular: Denies chest pain Respiratory: No shortness of breath, coughing Abdomen: Denies abdominal pain nausea vomit diarrhea : Denies any urinary symptoms Neurological: Complains of generalized weakness denies any numbness or tingling Musculoskeletal: Denies back pain Skin: Denies any rashes or lesions EXAM Physical Exam Narrative Exam Narrative: General: Patient lying in bed rest comfortably did not appear to be in acute distress Head: Atraumatic, normocephalic Eyes: PERRL bilaterally, EOMI blood, no conjunctival injection noted Neck: Soft, supple, trachea midline Cardiovascular: Regular rate and rhythm no murmurs gallops rubs noted Respiratory: Clear to auscultation bilaterally no rales rhonchi or wheezes noted Abdomen: Soft, nondistended, no tenderness palpation Extremities: +4/5 strength noted in the bilateral upper and lower extremities, radial pulses +2/4 in the bilateral extremities, no pedal edema on exam Neurological: Patient follow commands knew that she was at [facility]. NIH of 0 GCS 15 Skin: Warm, dry, intact no rashes or lesions noted Const Vital Signs: 12/03/24 15:46 12/03/24 17:28 12/03/24 17:33 Temperature 98.1 F Temperature Source Oral Pulse Rate 79 72 Respiratory Rate 16 18 Respiratory Effort Normal Non-Labored Respiratory Pattern Normal Blood Pressure 159/49 H 144/82 H Blood Pressure Mean 85 102 Pulse Ox 98 99 Oxygen Delivery Method Room Air Room Air 12/03/24 18:00 12/03/24 19:04 12/03/24 20:00 Temperature Temperature Source Pulse Rate 73 72 71 Respiratory Rate 19 H 18 18 Respiratory Effort Respiratory Pattern Blood Pressure 176/52 H 182/73 H 168/60 H Blood Pressure Mean 93 109 96 Pulse Ox 99 98 94 Oxygen Delivery Method Room Air Room Air 12/03/24 21:00 Temperature Temperature Source Pulse Rate 67 Respiratory Rate 18 Respiratory Effort Respiratory Pattern Blood Pressure 164/60 H Blood Pressure Mean 94 Pulse Ox 98 Oxygen Delivery Method Room Air MDM MDM MDM Narrative Medical decision making narrative: Patient is a 79-year-old female who presents to the emergency department chief complaint of generalized weakness. On the differential diagnose includes Melamin to UTI, pneumonia, electrolyte abnormality, cardiac arrhythmia. Once workup is obtained reviewed she will be reevaluated. Patient be given IV fluidsfor hydration. Patient CBC reviewed showed no evidence of cytosis white blood count 7.3, hemoglobin 10, plate count was 197. Patient sodium was 133, potassium normal 3.7, creatinine was 0.67. Patient's AST and ALT were 104 and 282 respectively, lipase was 68. Patient's urinalysis showed positive nitrites 0-5 white cells with 3+ bacteria this was sent for culture she was given a gram of Rocephin herein the emergency department. We attempted to get the patient up out of bed and she was extremely weak and could not do so therefore will discuss case with hospitalist for admission for placement into rehab. Daughter and patient are agreeable with this plan. Discussed case with hospitalist Dr. Shields who accept patient for admission. Patient and family ember at bedside was notified of this plan they are agreeableall question concerns answered. Lab Data Labs: Laboratory Results - last 24 hr 12/03/24 12/03/24 18:53 20:10 WBC 7.3 RBC 3.04 L Hgb 10.0 L Hct 28.2 L MCV 92.8 MCH 32.9 H MCHC 35.5 RDW Std Deviation 43.1 RDW Coeff of Marga 12.6 Plt Count 197 MPV 10.2 Immature Gran % (Auto) 0.700 Neut % (Auto) 80.3 H Lymph % (Auto) 9.0 L [place] % (Auto) 9.6 Eos % (Auto) 0.1 Baso % (Auto) 0.3 Absolute Neuts (auto) 5.9 Absolute Lymphs (auto) 0.66 L Nucleated RBC % 0 Sodium 133 Potassium 3.7 Chloride 100 Carbon Dioxide 22.8 Anion Gap 10 BUN 15 Creatinine 0.67 L Estim Creat Clear Calc 39.62 L Est GFR (MDRD) Non-Af 88 BUN/Creatinine Ratio 22.8 H Glucose 106 H Calcium 8.8 Total Bilirubin 0.65 AST 104 H ALT 282 H Alkaline Phosphatase 104 Total Protein 5.8 L Albumin 3.7 Globulin 2.1 L Albumin/Globulin Ratio 1.8 Lipase 68 Urine Color Straw Urine Clarity Clear Urine pH 7.0 Ur Specific Dafter 1.010 Urine Protein 15 H Urine Glucose (UA) Normal Urine Ketones 5 H Urine Occult Blood Negative Urine Nitrite Positive H Urine Bilirubin Negative Urine Urobilinogen Normal Ur Leukocyte Esterase Negative Urine RBC 0-5 SEEN Urine WBC 0-5 SEEN Ur Squamous Epith Cells 0 SEEN Urine Bacteria 3+ Urine Mucus 0 SEEN Discharge Plan Triage Chief Complaint: Weakness ED Provider: Hayden Sadler Dx/Rx/DC Orders Clinical Impression: Generalized weakness, Urinary tract infection Prescriptions: No Action multivitamin Tablet 1 tablet PO DAILY cyanocobalamin (vitamin B-12) 500 MCG tablet,chewable 1,000 mcg PO DAILY cholecalciferol (vitamin D3) 125 MCG capsule 125 mcg PO DAILY zinc sulfate [Orazinc] 50 mg zinc (220 mg) capsule 220 mg PO DAILY acetaminophen 325 mg capsule 325 mg PO Q4H PRN (Reason: pain) hydralazine 50 mg Tablet 50 mg PO TID Qty: 90 0RF levetiracetam 750 mg Tablet 750 mg PO BID Qty: 60 0RF sodium chloride 1,000 mg Tablet,Soluble 1,000 mg PO TIDCM Qty: 90 0RF atorvastatin 10 mg tablet 10 mg PO QHS Qty: 90 3RF amiodarone 200 mg tablet 200 mg PO DAILY Qty: 90 3RF apixaban 2.5 mg tablet 2.5 mg PO BID Qty: 180 4RF Primary Care Provider: Monika Venegas Referrals: Monika Venegas MD [Primary Care Provider] - Print Language: Nicaraguan Disposition Disposition: Acute Care Hospital [facility] What to do if you have Problems For any increased pain, shortness of breath, bleeding, nausea or vomiting, chestpain, or any unexpected problems, contact your Primary Care Provider. Call [facility] ([phone]) or report to the closest Emergency Room. Call 911 if necessary. 12/03/242224 <Electronically signed by Hayden Sadler DO> Cosigner Signature (if applicable): CC: Dr. Monika Venegas MD ~ Signed [facility] Work Phone: [phone] 494-566406-26-2025 Discharge summary Author Jo-Ann Hugo [facility] Note Date/Time November 29, 2024 10:[address] [facility] Medical Records Department [address] [place] [address] Instructions for Home/Discharge Instructions 11/27/24 1602 MR#: [id number] Acct: [id number] Name: SARAH MCGUIRE Rep #:[id number] : 1945 79 From: Jo-Ann Arias DO PCP: Dr. Monika Venegas MD Status:ADM IN Discharge Instructions Diet Discharge Diet: - (Limit fluid to five 8 ounce cups a day. Regular diet. ) DC O2, CPAP, BIPAP needs Home O2 Discharge instructions: No Dressing / Incision Discharge Activity: May Not Drive, May Shower and Use Walker Weight Bearing Status: Full weight bearing Dressing / Incision Call your doctor if you observe: Fever of 101 or Higher, Inability to urinate, Inability to have a bowel movement, Shortness of breath, Dizziness, Fainting spells, Swelling in the ankles, Chest pain and Calf discomfort Follow Up Care Please Follow Up With: Monika Venegas MD When: listed later in this document. You will also need to follow up with Dr. Melchor from neurology. Test Results: Test results from this visit will be discussed in further detail at your follow- up appointment, if applicable. Pending Tests Upon Discharge: none Discharge Plan Admission Admit Date/Time: 11/12/24 18:16 Primary Reason for Your Visit: Debility Attending Provider: Jo-Ann Arias Primary Care Provider: Monika Venegas Instructions Patient Instructions: Anxiety Disorders Tx, ED Anxiety Reaction, ED Panic Attack Additional Instructions / Restrictions: 1. We have not witnessed any seizures while you have been on rehab. We decreased the dose of the Keppra (antiepileptic drug) to 750 mg twice a day [id number] mg twice a day. You had an EEG at [facility] and it was negative for seizure. You will need to follow up with a neurologist. There is a excellent neurologistin [place] and his name is Dr. Melchor. He may want to do some additional testing to see if you even need to be on and antiseizure medication. 2. Your sodium has been low while on rehab. This was a problem the last time you were on rehab also. 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 With this diagnosis the problem is NOT that your body is low in sodium.....it is that you have an excessof water that is diluting the sodium out. The treatment for this condition is to restrict fluid intake. You should not drink more than five 8 oz cups of water a day. Sometimes this is not enough and you have to take salt tabs as well. While you were on rehab we also had to give you a diuretic called Lasix acouple times to get rid of the excess water. You will need to have follow up lab done after you leave rehab to make sure the sodium is staying stable. Sometimes when people have SIADH and it is hard to keep the sodium up they have to see a head stock transfer clerk(kidney doctor) to help manage the medications. I would recommend follow up with Dr. Schulte who is a kidney doctor who sees outpatients at the hospital in his office. 3. You are very anxious. You tend to get an idea in your head and stick with itand agonize about it, even when things have been changed. Nausea can be a sx of uncontrolled anxiety. When we get anxious it can cause lightheadedness, headache, palpitations, chest pain, shortness of breath, nausea, diarrhea, difficulty sleeping and fatigue. Being anxious can feel terrible. I think someof the symptoms you have are due to anxiety and I suspect you would feel a lot better if this could be controlled. I think you would benefit from seeing a psychiatrist to try medication to control your anxiety and I also think you would benefit from counselling. TAlk to your PCP about this. 4. If you or Alexsandra have questions after you leave rehab please do not hesitateto call me. I have given you some handouts that talk about anxiety and some of the symptoms uncontrolled anxiety can cause......you have many of these symptoms.......I hope you and Alexsandra are able to read these together so you can make a plan for getting help to control anxiety. Your heart rate is normal now that you are off COREG. You continue to take Amiodarone that helps keep your heart rate in control. You are back on Eliquis which you need to continue to take to prevent strokes due to atrial fibrillation(AFIB). OFFICE: [phone] CELL: [phone] NURSES STATION ON REHAB: [phone] Discharge Orders/Prescriptions Prescriptions: New hydralazine 50 mg Tablet 50 mg PO TID Qty: 90 0RF levetiracetam 750 mg Tablet 750 mg PO BID Qty: 60 0RF sodium chloride 1,000 mg Tablet,Soluble 1,000 mg PO TIDCM Qty: 90 0RF Continued multivitamin Tablet 1 tablet PO DAILY cyanocobalamin (vitamin B-12) 500 MCG tablet,chewable 1,000 mcg PO DAILY cholecalciferol (vitamin D3) 125 MCG capsule 125 mcg PO DAILY zinc sulfate [Orazinc] 50 mg zinc (220 mg) capsule 220 mg PO DAILY acetaminophen 325 mg capsule 325 mg PO Q4H PRN (Reason: pain) magnesium chloride 64 mg PO QHS atorvastatin 10 mg tablet 10 mg PO QHS Qty: 90 3RF amiodarone 200 mg tablet 200 mg PO DAILY Qty: 90 3RF apixaban 2.5 mg tablet 2.5 mg PO BID Qty: 180 4RF Discontinued lisinopril 10 mg tablet 10 mg PO DAILY cefdinir 300 mg capsule 300 mg PO BID levetiracetam [Keppra] 1,000 mg tablet 1,000 mg PO BID Referrals / Follow Up: Andrew Bueno [Other] - 11/28/24 12:00 pm Monika Venegas MD [Primary Care Provider] - 12/12/24 11:00 pm Disposition Disposition (needs filled in before D/C Order can be placed): Home Health Service 11/27/24 2196<Electronically signed by Jo-Ann Arias DO>Jo-Ann Arias DO CC: TYRA Cabral; Dr. Yifan Roque MD; Dr. Monika Venegas MD; Dr. Chente Leung MD; Dr. Gagan Schulte MD; Dr. Mattie Haynes DO; Dr. Christy Baer MD; Dr. Argentina Schmitz MD; Dr. Sanjuana Flores MD; Dr. Odilon Melchor MD; Dr. Deepak Byrd MD; Dr. Gibson Yang MD ~ Signed ADDENDUM by Dr. Jo-Ann Arias DO on 11/29/24 at 0851 Sodium on 11/29 is 135 after Tolvaptan 15 mg. Will DC 11/29/24 home. spoke with dtr Alexsandra and updated her. Will schedule appts for her to follow up with Dr. Melchor and Dr. Schulte. 11/29/24 0851<Electronically signed by Jo-Ann Arias DO>Jo-Ann Arias DO cc: TYRA Cabral; Dr. Yifan Roque MD; Dr. Monika Venegas MD; Dr. Chente Leung MD; Dr. Gagan Schulte MD; Dr. Mattie Haynes DO; Dr. Christy Baer MD; Dr. Argentina Schmitz MD; Dr. Sanjuana Flores MD; Dr. Odilon Melchor MD; Dr. Deepak Byrd MD; Dr. Gibson Yang MD ~* Signed ADDENDUM by Dr. Jo-Ann Arias DO on 11/29/24 at 1011 She has a small, less than 1 cm, stage II decub over the coccyx. Mepilex is in place. No purulent DC. Some redness around the decub but, no increased warmth to touch. This is more consistent with a stage I than with cellulitis. She is going to have HHC at [place]. SW is going to arrange for to follow progress toward healing at home. she is to roll from side to side and not have prolongedlying on her back and sitting in the chair without getting up to walk. Will also have [facility] draw a BMP in 1 week. 11/29/24 1011<Electronically signed by Jo-Ann Arias DO>Jo-Ann Arias DO cc: TYRA Cabral; Dr. Yifan Roque MD; Dr. Monika Venegas MD; Dr. Chente Leung MD; Dr. Gagan Schulte MD; Dr. Mattie Haynes DO; Dr. Christy Baer MD; Dr. Argentina Schmitz MD; Dr. Sanjuana Flores MD; Dr. Odilon Melchor MD; Dr. Deepak Byrd MD; Dr. Gibson Yang MD ~* Signed [facility] Work Phone: [phone] 557-731706-26-2025 Discharge summary [facility] Medical Records Department [address] [place] [address] Discharge Summary 11/27/24 1647 MR#: [id number] Acct: [id number] Name: SARAH MCGUIRE Rep #:[id number] : 1945 79 From: Jo-Ann Arias DO PCP: Dr. Monika Venegas MD Status:ADM IN Location: [place] [address] Providers Date of Admission: 11/12/24 Date of Discharge: 11/28/24 Primary Care Physician: Dr. Monika Venegas MD Consultations 11/28/24 12:17 Consult: Nephrology Routine Consulting Provider: [facility] Reason for Consult: hyponatremia with hx SIADH EMERGENT Consult: Yes MD Notified: Yes Date Notified: 11/28/24 Time Notified: 12:17 Method of Notification: Answering Service Reason For Visit: SUBDURAL HEMATOMA Diagnosis Discharge Diagnosis (1) Physical debility: Status: Acute Code(s): R53.81 - Other malaise (2) Generalized muscle weakness: Status: Acute Code(s): M62.81 - Muscle weakness (generalized) Plan: Improved. (3) Seizure disorder: Status: Acute Code(s): G40.909 - Epilepsy, unspecified, not intractable, without status epilepticus Plan: I suspect the etiology of the slurred speech and difficulty walking was severe bradycardia with poor cerebral perfusion. EEG was negative at [facility]. She was placed on Keppra 1,000 BID which was making her drowsy. Also likely contributing to hyponatremia. We decreased the dose to 750 mg while on rehab and she has had no events. HR is now always WNL since Coreg was discontinued, She remains on Amiodarone 200 mg daily. She will follow up with neurology to address thye need for continued Keppra. (4) Intracranial epidural hematoma: Status: Chronic Code(s): S06.4XAA - Epidural hemorrhage with loss of consciousness status unknown, initial encounter Plan: The epidural hematoma is not new. She had no recent head trauma. Neurosurgery recommended holding Eliquis for 2 weeks and then restarting. She has been restarted on Eliquis 2.5 mg BID prior to DC from rehab. (5) Acute cystitis: Status: Resolved Code(s): N30.00 - Acute cystitis without hematuria Qualifiers: Hematuria presence: without hematuria Qualified Code(s): N30.00 - Acutecystitis without hematuria Plan: This was present at admission to rehab and she came to us on Cefdinir. She had a UA done on 11/25 prior to DC and it had 5-10 WBC's with no bacteria. The urineculture grew 1000-10,000 colonies of Pseudomonas aeruginosa. She is afebrile with a normal white blood cell count and denies dysuria. Asymptomatic bacteriuria in the elderly is not uncommon and since she is afebrile, asymptomatic and has a normal white blood cell count there is no reason to treatthis. (6) Paroxysmal atrial fibrillation: Status: Chronic Code(s): I48.0 - Paroxysmal atrial fibrillation (7) Anticoagulant long-term use: Status: Chronic Code(s): Z79.01 - long-term (current) use of anticoagulants Plan: Continue Eliquis 2.5 mg BID. (8) Bradycardia, sinus: Status: Inactive Code(s): R00.1 - Bradycardia, unspecified Plan: Resolved with the4 discontinuation of Coreg. HR is WNL on Amiodarone 200 mg daily. (9) long-term current use of amiodarone: Status: Chronic Code(s): Z79.899 - Other terminal computer operator (current) drug therapy (10) High cholesterol: Status: Chronic Code(s): E78.00 - Pure hypercholesterolemia, unspecified (11) HTN (hypertension): Status: Chronic Code(s): I10 - Essential (primary) hypertension Qualifiers: Hypertension type: primary hypertension Qualified Code(s): I10 - Essential (primary) hypertension Plan: Continue atorvastatin (12) Carotid artery bruit: Status: Chronic Code(s): R09.89 - Other specified symptoms and signs involving the circulatory and respiratory systems Qualifiers: Laterality: bilateral Qualified Code(s): R09.89 - Other specified symptoms and signs involving the circulatory and respiratory systems (13) Mild aortic stenosis: Status: Chronic Code(s): I35.0 - Nonrheumatic aortic (valve) stenosis (14) Grade II diastolic dysfunction: Status: Chronic Code(s): I51.89 - Other ill-defined heart diseases (15) Chronic anemia: Status: Chronic Code(s): D64.9 - Anemia, unspecified (16) Hypo-osmolality and hyponatremia: Status: Resolved Code(s): E87.1 - Hypo-osmolality and hyponatremia Plan: 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 The Keppra may be causing the sodium to continue to drop. She was placed on fluid restriction, salt tabs and was given Lasix with no improvement. On 11/28/25 the sodium was 125. She was given 15 mg of Tolvaptan on 11/28 and the sodium on 11/29 was 135. She is being discharged on salt tabs and fluid restircition and will follow up with Dr. Schulte post [facility] rehab. (17) Presbycusis: Status: Chronic Code(s): H91.10 - Presbycusis, unspecified ear Qualifiers: Laterality: bilateral Qualified Code(s): H91.13 - Presbycusis, bilateral Plan: She is very hard of hearing and will not wear her hearing aids. she does not think they help BUT, when she has them in I do not have to repeat myself multiple times and scream at her. (18) Decubitus ulcer of coccyx, stage 2: Status: Acute Code(s): L89.152 - Pressure ulcer of sacral region, stage 2 Plan: Mepilex applied and will have [facility] at [place] with SN to follow the ulcer to healing. Will continue Mepilex and off loading. (19) Severe anxiety: Status: Chronic Code(s): F41.9 - Anxiety disorder, unspecified Plan: She has severe anxiety and many somatic complaints. She perseverates on things that happened in thepast and keeps repeating the same thing over and over. Shec/o nausea chronically and associates this with getting too many pills at once.......nursing spread her pills out and she continues to repeatshe is getting too many pills at once. She c/o nausea even when she has not had any pills. When shegets anxious she will start gagging and regurgitating. What she brings up is thick clear secretions.......not gastrc contents. I have watched her do this and it comes out of the blue.......neeraj if we are talking something that makes her anxious. Immediately after she will eat? She is eating 75-100% of all her meals despite c/o nausea. She was tried on Buspar with no success on rehab and it was discontinued. I have recommended that she follow up with psychotherapy to get her anxiety treated. Plan 1. DC home with [facility]. BMP in 1 week. C to draw. 2. Continue Mepilex to the decubitus ulcer [facility] SN will follow 3. BMP in 1 week - results to PCP. 4. Follow up with Dr. Schulte for chronic hyponatremia. 5. Follow up with Dr. Melchor 6. COntinue to follow up with [facility] 7. Follow up with PCP Medications at Discharge Home Medications multivitamin 1 tablet PO DAILY supplement 08/12/20 cholecalciferol (vitamin D3) 125 mcg (5,000 unit) capsule 125 mcg PO DAILY supplement 08/14/20 cyanocobalamin (vitamin B-12) 500 mcg chewable tablet 1,000 mcg PO DAILY supplement 08/14/20 zinc sulfate 50 mg zinc (220 mg) capsule (Orazinc) 220 mg PO DAILY vitamin 12/06/22 amiodarone 200 mg tablet 200 mg PO DAILY heart #90 TABLETS 12/12/23 atorvastatin 10 mg tablet 10 mg PO QHS for cholesterol #90 TABLETS 12/12/23 apixaban 2.5 mg tablet 2.5 mg PO BID called to [facility] tabs 08/13/24 acetaminophen 325 mg capsule 325 mg PO Q4H PRN pain 11/12/24 magnesium chloride 64 mg PO QHS Supplement 11/12/24 hydralazine 50 mg tablet 50 mg PO TID #90 tabs 11/27/24 levetiracetam 750 mg tablet 750 mg PO BID #60 tabs 11/27/24 sodium chloride 1,000 mg soluble tablet 1,000 mg PO TIDCM #90 tabs 11/27/24 Hospital Course Operations None Procedures Electroencephalogram (Done at [facility]. No epileptiform activity but, she had continuous left hemispheric polymorphic theta slow-wave activity indicative of astructural lesion over the left hemisphere which is where the meningioma was.) Summary of Care Provided Minutes Spent on Discharge: 42 Hospital Course: SARAH MCGUIRE, is a 78 YO F with a PMH of paroxysmal atrial fibrillation, hypertension, hyperlipidemia,CVA (following resection of meningioma in December of 2022), chronic hyponatremia, large meningioma resected at [facility] by Dr. 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 Noncontrast brain CT showed a moderate-sized mixed density left subdural fluid collection concerning for bleeding. Shewas transferred to [facility] ED for possible subdural hematoma. She was given K[place]rain the ED prior to transfer to reverse the Apixaban. MRIof the brain, MRA brain and MRA neck showed no evidence of a new CVA. Neurology evaluated the patient and felt her history was highly suggestive of seizures although no epileptic discharges were captured on EEG. She had continuous left hemisphericpolymorphic theta slow-wave activity indicative of astructural lesion over the left hemisphere and this is the area where she had the craniotomy in 2022. She was started on Keppra 1000 mg p.o. twice daily. Neurosurgery was consulted for the extraduralfluid collection and recommended holding anticoagulation for 2 weeks since she could have a subacute on chronic extradural fluid collection related to a fall she had approximately 1 month prior to presenting to the emergency department at [facility]. Coreg was held for bradycardia but, amiodarone was continued. Blood pressures were high so lisinopril was increased to 10 mg daily. Doxazosin, HCTZ and spironolactone were discontinued. Serum osmolality was low at [facility] but, I could not find a urineosmolality or urine sodium in my review of the chart. Speech was back to baseline at the time of DC from [facility]. She was seen by PT/OT/ST at [facility] and acute rehab was recommended at DC. She was transferred to the acute inpt rehab unit at [facility] on 11/12/24 for 3 hours of therapy daily to restore function/independence at or near her level prior to recent events. Since her craniotomy in 2022 she requires assistance from family for many ADL's. sarah was taking Cefdinir at the time of admission to acute rehab for reported urinary tract infection. Sodium was 127 at admission to rehab. Serum osmolality was 271 and urine osmolality 591. Urine sodium was 89. Sodium dropped to 124 on 11/15/2024. She is chronically hyponatremic. Lisinopril was discontinued since it can cause a low sodium. She was placed on fluid restriction and salt tabs but, sodium remained low. She was given 2 dose of Lasix and the sodium came up to 134. When the sodium hfo510 the BUN was 32 with a creatinine of 0.94. Salt tabs were decreased to twice a day and fluid restriction was continued. The sodium began to decreases again. On 11/28/25 it was 125 and this was on fluid restriction, salt tabs 1 gm TID and 2 doses of Lasix. Urine osmolality was 519 and the urine sodium was 48. Serum osmolality was 281. She was given Tolvaptan 15 mg and on 11/29 the sodium was 135.She will continue salt tabs and fluid restriction at home and will follow up with Dr. Schulte. She will have a BMP done in 1 week post [place] to draw and send results to the PCP. with fluid restriction and reportedly drinking less than 1 liter a day and often less than 800 cc the BUN has remainedat 9-11 since 11/19 when the BUN was 27 and the sodium was 134? Creat has remained in the 0.70 - 75range. At the time of discharge she is able to do 8 sit to stands at MIN A usingher upper extremities to rise in 30 seconds. She does a 3/4 rise and does not get fully upright. She is able to ascend/descendthree 4 inch steps with 2 handrails at min assist/contact-guard assist. She has ambulated up to 130feet with a rollator walker. She needs moderate assistance to get out of bed but is min assist for sit to stand. She is supervision/set up for eating and grooming. She requires minimal assistance with tub/shower transfer, bathing, upper body dressing and toileting. She is max assist with toilet transfer. She requires moderate assistance for lower body bathing. sarah has some barriers to making progress in therapy. she has severe hearing loss and does not wear her hearing aids. They do not ring aids in and I am speaking with repeat myself multiple times nor do I have to scream at her. When she does not have the hearing aids in she needs a lot of cuing to complete activities. In addition to hearing lossyony is very anxious and frequently does not listen to what is being said to her because she is talking over the person peaking to her. She has numerous somaticcomplaints and perseverates on things that happened in the past but, are not happening currently. She chronically c/o nausea but, she is eating 75-100% of her meals. She days the nausea is do to getting too many pills at once but, nursing is spreading them out and she continues to c.o this. When you are speaking with her about something that makes her anxious she gets tremulous, shakes her legs and then starts gagging. I havewatched her do this and then she spits out some thick, clear spit. It is not even sputum. No emesisand then she will eat a meal? She was tried on Buspar while on rehab but, it was not effective. I have recommended to her daughter Alexsandra that Sarah be seen by psychiatry/psychotherapy to get her anxiety under control. She has had no seizures while on rehab. I suspect the slurred speech andtrouble walking at presentation to the ER were due to severe bradycardia/hypotension and not due to seizures. Keppra was decreased to 750 mgBID while on rehab and she has had no slurred speech or increased neurologic events. No one has witnessed any seizure activity. she is going to follow up with Dr. Melchor post [place] from rehab. HR is WNL on Amiodarone 200 mg daily with no tachycardia. She has not beenbradycardic. Sarah was discharged home with her daughter Alexsandra on 11/29/2024 and will have [facility] home health care. Will have home health care draw a BMP in 1 week with the results to go to her primary carephysician. Physical Exam Const alert, oriented x3 and no apparent distress Constitutional Narrative: Extremely anxious HEENT HEENT Narrative: MM are a little dry No evidence of thrush. She has localized alopecia in the left frontal cranium secondary to previous meningioma with resection. Eyes PERRL, EOMs intact bilaterally, conjunctivae normal and no scleral icterus Eyes Narrative: No discharge from the eyes. Neck Neck Narrative: She has loud bruits over both carotids however this may be due to radiation of the aortic stenosis murmur and not due to carotid stenosis. MRI of the neck done recently did not mention any significant carotid stenosis. Chest Chest: symmetrical chest wall rise Resp normal respiratory effort, normal air movement and clear to auscultation bilaterally Resp Narrative: Initially had some coarse crackles in the bases but after few deep breaths this resolved. She has been lying in bed all day and not taking deep breaths. She has no cough. Effort and Inspection: able to speak in complete sentences Cardio regular rate, regular rhythm, no rub and no gallops Cardio Narrative: No ectopy. She has a 3/6 PATY at the second RICS with radiation to the LVOT, LLSB, apex, carotids and into the left axilla. No diastolic MM appreciated. GI normal to inspection, nondistended, normoactive bowel sounds, soft to palpation and non-tender GI Narrative: No guarding with palpation. Ate 75 to 100% of her breakfast today Extremity no calf tenderness and no pedal edema Skin General Skin Exam: no breakdown Rashes: no rashes Neuro CN's II-XII intact bilaterally, moves all extremities and no focal motor deficits Neuro Narrative: Generalized weakness. Severe hearing loss. Psych Psych Narrative: Severely anxious with tremulous upper extremities and shaking her legs. Tearfulat times. Gagging attimes. Weight / BMI Weight Weight: 106 lb 4.8 oz Body Mass Index (BMI) 24.7 ABG / Lab / Microbiology Data 11/27/24 05:38 11/29/24 07:37 Laboratory: Laboratory Results - last 24 hr 11/28/24 05:12: Sodium 126 L, Potassium 3.8, Chloride 92 L, Carbon Dioxide 22.8,Anion Gap 11, BUN 10, Creatinine 0.75, Estim Creat Clear Calc 39.62 L, Est GFR (MDRD) Non-Af 80, BUN/Creatinine Ratio 13.0, Glucose 94, Calcium 8.9, Phosphorus3.5, Albumin 3.6 11/28/24 13:16: Serum Osmolality 281 11/28/24 16:14: Urine Osmolality 519, Ur Random Sodium 48 11/29/24 07:37: Sodium 135, Potassium 4.0, Chloride 101, Carbon Dioxide 23.5, Anion Gap 10, BUN 11,Creatinine 0.88, Estim Creat Clear Calc 36.01 L, Est GFR (MDRD) Non-Af 66, BUN/Creatinine Ratio 12.2, Glucose 114 H, Calcium 8.8 Microbiology: Microbiology 11/25/24 07:47 Urine Catheter - Catheter Urine Culture - Final Pseudomonas aeruginosa D/C Instructions Discharge Diet: - (Limit fluid to five 8 ounce cups a day. Regular diet. ) Weight Bearing Status: Full weight bearing Call your doctor if you observe: Fever of 101 or Higher, Inability to urinate, Inability to have a bowel movement, Shortness of breath, Dizziness, Fainting spells, Swelling in the ankles, Chest pain and Calf discomfort DC O2, CPAP, BIPAP Needs Home O2 Discharge instructions: No Pending Tests Upon Discharge: none Please Follow Up With: Monika Venegas MD When: listed later in this document. You will also need to follow up with Dr. Melchor from neurology. Meaningful Use Info Meaningful Use Meaningful Use Diagnoses (Choose all that apply): None applicable Ischemic Stroke Statin Dosing Therapy Reference: STATIN DOSE THERAPY REFERENCE: * Patients > 75 years receive moderate or high dose statin therapy. * Patients 75 years or YOUNGER should receive HIGH intensity statin dose unless contraindicated. You will be required to document reason for non-treatment if statin daily dose does not meet guidelines. HIGH DOSE STATIN THERAPY DAILY Atorvastatin > than or = to 40 mg Rosuvastatin > than or = to 20 mg Amlodipine + Atorvastatin > than or = to 2.5/40 mg Ezetimibe + Simvastatin 10/80 mg Simvastatin 80mg Discharge Plan Admission Admit Date/Time: 11/12/24 18:16 Primary Reason for Your Visit: Debility Attending Provider: Jo-Ann Arias Primary Care Provider: Monika Venegas Consulting Providers: Chente Leung; Yifan Roque; Gagan Schulte; Mattie Haynes; Christy Baer; Argentina Schmitz; Sanjuana Flores; Deepak Byrd; Gibson Yang; Sylvia Cabral Instructions Patient Instructions: Anxiety Disorders Tx, ED Anxiety Reaction, ED Panic Attack Additional Instructions / Restrictions: 1. We have not witnessed any seizures while you have been on rehab. We decreased the dose of the Keppra (antiepileptic drug) to 750 mg twice a day [id number] mg twice a day. You had an EEG at [facility] and it was negative for seizure. You will need to follow up with a neurologist. There is a excellent neurologistin [place] and his name is Dr. Melchor. He may want to do some additional testing to see if you even need to be on and antiseizure medication. 2. Your sodium has been low while on rehab. This was a problem the last time you were on rehab also. 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 With this diagnosis the problem is NOT that your body is low in sodium.....it is that you have an excessof water that is diluting the sodium out. The treatment for this condition is to restrict fluid intake. You should not drink more than five 8 oz cups of water a day. Sometimes this is not enoughand you have to take salt tabs as well. While you were on rehab we also had to give you a diuretic called Lasix acouple times to get rid of the excess water. You will need to have follow up lab done after you leave rehab to make sure the sodium is staying stable. Sometimes when people have SIADH and it is hard to keep the sodium up they have to see a head stock transfer clerk(kidney doctor) to help manage themedications. I would recommend follow up with Dr. Schulte who is a kidney doctor who sees outpatients at the hospital in his office. 3. You are very anxious. You tend to get an idea in your head and stick with itand agonize about it, even when things have been changed. Nausea can be a sx of uncontrolled anxiety. When we get anxious it can cause lightheadedness, headache, palpitations, chest pain, shortness of breath, nausea, diarrhea, difficulty sleeping and fatigue. Being anxious can feel terrible. I think someof the symptomsyou have are due to anxiety and I suspect you would feel a lot better if this could be controlled. I think you would benefit from seeing a psychiatrist to try medication to control your anxiety and Devin think you would benefit from counselling. TAlk to your PCP about this. 4. If you or Alexsandra have questions after you leave rehab please do not hesitateto call me. I have given you some handouts that talk about anxiety and some of the symptoms uncontrolled anxiety can cause......you have many of these symptoms.......I hope you and Alexsandra are able to read these together so you can make a plan for getting help to control anxiety. Your heart rate is normal now that you are off COREG. You continue to take Amiodarone that helps keep your heart rate in control. You are back on Eliquis which you need to continue to take to preventstrokes due to atrial fibrillation(AFIB). OFFICE: [phone] CELL: [phone] NURSES STATION ON REHAB: [phone] Discharge Orders/Prescriptions Prescriptions: New hydralazine 50 mg Tablet 50 mg PO TID Qty: 90 0RF levetiracetam 750 mg Tablet 750 mg PO BID Qty: 60 0RF sodium chloride 1,000 mg Tablet,Soluble 1,000 mg PO TIDCM Qty: 90 0RF Continued multivitamin Tablet 1 tablet PO DAILY cyanocobalamin (vitamin B-12) 500 MCG tablet,chewable 1,000 mcg PO DAILY cholecalciferol (vitamin D3) 125 MCG capsule 125 mcg PO DAILY zinc sulfate [Orazinc] 50 mg zinc (220 mg) capsule 220 mg PO DAILY acetaminophen 325 mg capsule 325 mg PO Q4H PRN (Reason: pain) magnesium chloride 64 mg PO QHS atorvastatin 10 mg tablet 10 mg PO QHS Qty: 90 3RF amiodarone 200 mg tablet 200 mg PO DAILY Qty: 90 3RF apixaban 2.5 mg tablet 2.5 mg PO BID Qty: 180 4RF Discontinued lisinopril 10 mg tablet 10 mg PO DAILY cefdinir 300 mg capsule 300 mg PO BID levetiracetam [Keppra] 1,000 mg tablet 1,000 mg PO BID Other Ambulatory Orders: Basic Metabolic Profile (BMP) (Routine) Timeframe: 1 Week Location: Determined by Patient Ordered By: Dr. Jo-Ann Arias Referrals / Follow Up: Andrew Bueno [Other] - 12/06/24 2:30 pm (this will be an over the phone appt. ) Monika Venegas MD [Primary Care Provider] - 12/03/24 4:10 pm (Seeing Dr. Kiran from now on. ) Gagan Schulte MD [Med Staff - Consulting] - (Dr Schulte's office will contact you) Odilon Melchor MD [Non-Staff -Ordering Privileges] - 12/20/24 9:00 am () Disposition Disposition (needs filled in before D/C Order can be placed): Home Health Service Charges/Coding Visit Charges Inpatient E&M: 03868 Disch Hosp >30min 11/29/24 1151 Cosigner Signature (if applicable): CC: Dr. Monika Venegas MD; Dr. Gagan Schulte MD; Dr. Jo-Ann Arias DO; Dr. Odilon Melchor MD; MAGALY Davis~ Signed [facility]06-26-2025 Discharge summary [facility] Medical Records Department [address] [place] [address] Instructions for Home/Discharge Instructions 11/27/24 1602 MR#: [id number] Acct: [id number] Name: SARAH MCGUIRE Rep #:[id number] : 1945 79 From: Jo-Ann Arias DO PCP: Dr. Monika Venegas MD Status:ADM IN Discharge Instructions Diet Discharge Diet: - (Limit fluid to five 8 ounce cups a day. Regular diet. ) DC O2, CPAP, BIPAP needs Home O2 Discharge instructions: No Dressing / Incision Discharge Activity: May Not Drive, May Shower and Use Walker Weight Bearing Status: Full weight bearing Dressing / Incision Call your doctor if you observe: Fever of 101 or Higher, Inability to urinate, Inability to have a bowel movement, Shortness of breath, Dizziness, Fainting spells, Swelling in the ankles, Chest pain and Calf discomfort Follow Up Care Please Follow Up With: Monika Venegas MD When: listed later in this document. You will also need to follow up with Dr. Melchor from neurology. Test Results: Test results from this visit will be discussed in further detail at your follow- up appointment, if applicable. Pending Tests Upon Discharge: none Discharge Plan Admission Admit Date/Time: 11/12/24 18:16 Primary Reason for Your Visit: Debility Attending Provider: Jo-Ann Arias Primary Care Provider: Monika Venegas Instructions Patient Instructions: Anxiety Disorders Tx, ED Anxiety Reaction, ED Panic Attack Additional Instructions / Restrictions: 1. We have not witnessed any seizures while you have been on rehab. We decreased the dose of the Keppra (antiepileptic drug) to 750 mg twice a day [id number] mg twice a day. You had an EEG at [facility] and it was negative for seizure. You will need to follow up with a neurologist. There is a excellent neurologanshul Hassan and his name is Dr. Melchor. He may want to do some additional testing to see if you even need to be on and antiseizure medication. 2. Your sodium has been low while on rehab. This was a problem the last time you were on rehab also. 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 With this diagnosis the problem is NOT that your body is low in sodium.....it is that you have an excessof water that is diluting the sodium out. The treatment for this condition is to restrict fluid intake. You should not drink more than five 8 oz cups of water a day. Sometimes this is not enoughand you have to take salt tabs as well. While you were on rehab we also had to give you a diuretic called Lasix acouple times to get rid of the excess water. You will need to have follow up lab done after you leave rehab to make sure the sodium is staying stable. Sometimes when people have SIADH and it is hard to keep the sodium up they have to see a head stock transfer clerk(kidney doctor) to help manage themedications. I would recommend follow up with Dr. Scuhlte who is a kidney doctor who sees outpatients at the hospital in his office. 3. You are very anxious. You tend to get an idea in your head and stick with itand agonize about it, even when things have been changed. Nausea can be a sx of uncontrolled anxiety. When we get anxious it can cause lightheadedness, headache, palpitations, chest pain, shortness of breath, nausea, diarrhea, difficulty sleeping and fatigue. Being anxious can feel terrible. I think someof the symptomsyou have are due to anxiety and I suspect you would feel a lot better if this could be controlled. I think you would benefit from seeing a psychiatrist to try medication to control your anxiety and Devin think you would benefit from counselling. TAlk to your PCP about this. 4. If you or Alexsandra have questions after you leave rehab please do not hesitateto call me. I have given you some handouts that talk about anxiety and some of the symptoms uncontrolled anxiety can cause......you have many of these symptoms.......I hope you and Alexsandra are able to read these together so you can make a plan for getting help to control anxiety. Your heart rate is normal now that you are off COREG. You continue to take Amiodarone that helps keep your heart rate in control. You are back on Eliquis which you need to continue to take to preventstrokes due to atrial fibrillation(AFIB). OFFICE: [phone] CELL: [phone] NURSES STATION ON REHAB: [phone] Discharge Orders/Prescriptions Prescriptions: New hydralazine 50 mg Tablet 50 mg PO TID Qty: 90 0RF levetiracetam 750 mg Tablet 750 mg PO BID Qty: 60 0RF sodium chloride 1,000 mg Tablet,Soluble 1,000 mg PO TIDCM Qty: 90 0RF Continued multivitamin Tablet 1 tablet PO DAILY cyanocobalamin (vitamin B-12) 500 MCG tablet,chewable 1,000 mcg PO DAILY cholecalciferol (vitamin D3) 125 MCG capsule 125 mcg PO DAILY zinc sulfate [Orazinc] 50 mg zinc (220 mg) capsule 220 mg PO DAILY acetaminophen 325 mg capsule 325 mg PO Q4H PRN (Reason: pain) magnesium chloride 64 mg PO QHS atorvastatin 10 mg tablet 10 mg PO QHS Qty: 90 3RF amiodarone 200 mg tablet 200 mg PO DAILY Qty: 90 3RF apixaban 2.5 mg tablet 2.5 mg PO BID Qty: 180 4RF Discontinued lisinopril 10 mg tablet 10 mg PO DAILY cefdinir 300 mg capsule 300 mg PO BID levetiracetam [Keppra] 1,000 mg tablet 1,000 mg PO BID Referrals / Follow Up: Andrew Bueno [Other] - 11/28/24 12:00 pm Monika Venegas MD [Primary Care Provider] - 12/12/24 11:00 pm Disposition Disposition (needs filled in before D/C Order can be placed): Home Health Service 11/27/24 1646Jo-Ann Ivan Arias DO CC: TYRA Cabral; Dr. Yifan Roque MD; Dr. Monika Venegas MD; Dr. Chente Leung MD; Dr.Jayaprakas Eris MD; Dr. Mattie Haynes DO; Dr. Christy Baer MD; Dr. Argentina Schmitz MD; Dr. Sanjuana Flores MD; Dr. Odilon Melchor MD; Dr. Deepak Byrd MD; Dr. Gibson Yang MD ~ Signed ADDENDUM by Dr. Jo-Ann Arias DO on 11/29/24 at 0851 Sodium on 11/29 is 135 after Tolvaptan 15 mg. Will DC 11/29/24 home. spoke with dtr Alexsandra and updated her. Will schedule appts for her to follow up with Dr. Melchor and Dr. Schulte. 11/29/24 [facility]851[facility] T[facility] cc: TYRA Cabral; Dr. Yifan Roque MD; Dr. Monika Venegas MD; Dr. Chente Leung MD; Dr.Jayaprakas Eris MD; Dr. Mattie Haynes DO; Dr. Christy Baer MD; Dr. Argentina Schmitz MD; Dr. Sanjuana Flores MD; Dr. Odilon Melchor MD; Dr. Deepak Byrd MD; Dr. Gibson Yang MD ~* Signed ADDENDUM by Dr. Jo-Ann Arias DO on 11/29/24 at 1011 She has a small, less than 1 cm, stage II decub over the coccyx. Mepilex is in place. No purulent DC. Some redness around the decub but, no increased warmth to touch. This is more consistent with a stage I than with cellulitis. She is going to have HHC at [place]. SW is going to arrange for SN to followprogress toward healing at home. she is to roll from side to side and not have prolongedlying on her back and sitting in the chair without getting up to walk. Will also have HHC draw a BMP in 1 week. 11/29/24 1011SJo-Ann scott DO cc: TYRA Cabral; Dr. Yifan Roque MD; Dr. Monika Venegas MD; Dr. Chente Leung MD; Dr.Jayaprakas Eris MD; Dr. Mattie Haynes DO; Dr. Christy Baer MD; Dr. Argentina Schmitz MD; Dr. Sanjuana Flores MD; Dr. Odilon Melchor MD; Dr. Deepak Byrd MD; Dr. Gibson Yang MD ~* Signed [facility]06-24-2025 Discharge summary Author Jo-Ann [facility] Note Date/Time November 29, 2024 11:[address] [facility] Medical Records Department [address] [place] [address] Discharge Summary 11/27/24 1647 MR#: [id number] Acct: [id number] Name: SARAH MCGUIRE Rep #:[id number] : 1945 79 From: Jo-Ann Arias DO PCP: Dr. Monika Venegas MD Status:ADM IN Location: [place] [id number] Providers Date of Admission: 11/12/24 Date of Discharge: 11/28/24 Primary Care Physician: Dr. Monika Venegas MD Consultations 11/28/24 12:17 Consult: Nephrology Routine Consulting Provider: [facility] Reason for Consult: hyponatremia with hx SIADH EMERGENT Consult: Yes MD Notified: Yes Date Notified: 11/28/24 Time Notified: 12:17 Method of Notification: Answering Service Reason For Visit: SUBDURAL HEMATOMA Diagnosis Discharge Diagnosis (1) Physical debility: Status: Acute Code(s): R53.81 - Other malaise (2) Generalized muscle weakness: Status: Acute Code(s): M62.81 - Muscle weakness (generalized) Plan: Improved. (3) Seizure disorder: Status: Acute Code(s): G40.909 - Epilepsy, unspecified, not intractable, without status epilepticus Plan: I suspect the etiology of the slurred speech and difficulty walking was severe bradycardia with poor cerebral perfusion. EEG was negative at [facility]. She was placed on Keppra 1,000 BID which was making her drowsy. Also likely contributing to hyponatremia. We decreased the dose to 750 mg while on rehab and she has had no events. HR is now always WNL since Coreg was discontinued, She remains on Amiodarone 200 mg daily. She will follow up with neurology to address thye need for continued Keppra. (4) Intracranial epidural hematoma: Status: Chronic Code(s): S06.4XAA - Epidural hemorrhage with loss of consciousness status unknown, initial encounter Plan: The epidural hematoma is not new. She had no recent head trauma. Neurosurgery recommended holding Eliquis for 2 weeks and then restarting. She has been restarted on Eliquis 2.5 mg BID prior to DC from rehab. (5) Acute cystitis: Status: Resolved Code(s): N30.00 - Acute cystitis without hematuria Qualifiers: Hematuria presence: without hematuria Qualified Code(s): N30.00 - Acutecystitis without hematuria Plan: This was present at admission to rehab and she came to us on Cefdinir. She had a UA done on 11/25 prior to DC and it had 5-10 WBC's with no bacteria. The urineculture grew 1000-10,000 colonies of Pseudomonas aeruginosa. She is afebrile with a normal white blood cell count and denies dysuria. Asymptomatic bacteriuria in the elderly is not uncommon and since she is afebrile, asymptomatic and has a normal white blood cell count there is no reason to treatthis. (6) Paroxysmal atrial fibrillation: Status: Chronic Code(s): I48.0 - Paroxysmal atrial fibrillation (7) Anticoagulant long-term use: Status: Chronic Code(s): Z79.01 - ferry terminal agent (current) use of anticoagulants Plan: Continue Eliquis 2.5 mg BID. (8) Bradycardia, sinus: Status: Inactive Code(s): R00.1 - Bradycardia, unspecified Plan: Resolved with the4 discontinuation of Coreg. HR is WNL on Amiodarone 200 mg daily. (9) 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: Status: Chronic Code(s): Z79.899 - Other usp (current) drug therapy (10) High cholesterol: Status: Chronic Code(s): E78.00 - Pure hypercholesterolemia, unspecified (11) HTN (hypertension): Status: Chronic Code(s): I10 - Essential (primary) hypertension Qualifiers: Hypertension type: primary hypertension Qualified Code(s): I10 - Essential (primary) hypertension Plan: Continue atorvastatin (12) Carotid artery bruit: Status: Chronic Code(s): R09.89 - Other specified symptoms and signs involving the circulatory and respiratory systems Qualifiers: Laterality: bilateral Qualified Code(s): R09.89 - Other specified symptoms and signs involving the circulatory and respiratory systems (13) Mild aortic stenosis: Status: Chronic Code(s): I35.0 - Nonrheumatic aortic (valve) stenosis (14) Grade II diastolic dysfunction: Status: Chronic Code(s): I51.89 - Other ill-defined heart diseases (15) Chronic anemia: Status: Chronic Code(s): D64.9 - Anemia, unspecified (16) Hypo-osmolality and hyponatremia: Status: Resolved Code(s): E87.1 - Hypo-osmolality and hyponatremia Plan: 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 The Keppra may be causing the sodium to continue to drop. She was placed on fluid restriction, salt tabs and was given Lasix with no improvement. On 11/28/25 the sodium was 125. She was given 15 mg of Tolvaptan on 11/28 and the sodium on 11/29 was 135. She is being discharged on salt tabs and fluid restircition and will follow up with Dr. Eris connelly DC from rehab. (17) Presbycusis: Status: Chronic Code(s): H91.10 - Presbycusis, unspecified ear Qualifiers: Laterality: bilateral Qualified Code(s): H91.13 - Presbycusis, bilateral Plan: She is very hard of hearing and will not wear her hearing aids. she does not think they help BUT, when she has them in I do not have to repeat myself multiple times and scream at her. (18) Decubitus ulcer of coccyx, stage 2: Status: Acute Code(s): L89.152 - Pressure ulcer of sacral region, stage 2 Plan: Mepilex applied and will have HHC at [place] with SN to follow the ulcer to healing. Will continue Mepilex and off loading. (19) Severe anxiety: Status: Chronic Code(s): F41.9 - Anxiety disorder, unspecified Plan: She has severe anxiety and many somatic complaints. She perseverates on things that happened in the past and keeps repeating the same thing over and over. Shec/o nausea chronically and associates this with getting too many pills at once.......nursing spread her pills out and she continues to repeat she is getting too many pills at once. She c/o nausea even when she has not had any pills. When she gets anxious she will start gagging and regurgitating. What she brings up is thick clear secretions.......not gastrc contents. I have watched her do this and it comes out of the blue.......neeraj if we are talking something that makes her anxious. Immediately after she will eat? She is eating 75-100% of all her meals despite c/o nausea. She was tried on Buspar with no success on rehab and it was discontinued. I have recommended that she follow up with psychotherapy to get her anxiety treated. Plan 1. [place] home with [facility]. BMP in 1 week. HHC to draw. 2. Continue Mepilex to the decubitus ulcer [facility] SN will follow 3. BMP in 1 week - results to PCP. 4. Follow up with Dr. Schulte for chronic hyponatremia. 5. Follow up with Dr. Melchor 6. COntinue to follow up with [facility] 7. Follow up with PCP Medications at Discharge Home Medications multivitamin 1 tablet PO DAILY supplement 08/12/20 cholecalciferol (vitamin D3) 125 mcg (5,000 unit) capsule 125 mcg PO DAILY supplement 08/14/20 cyanocobalamin (vitamin B-12) 500 mcg chewable tablet 1,000 mcg PO DAILY supplement 08/14/20 zinc sulfate 50 mg zinc (220 mg) capsule (Orazinc) 220 mg PO DAILY vitamin 12/06/22 amiodarone 200 mg tablet 200 mg PO DAILY heart #90 TABLETS 12/12/23 atorvastatin 10 mg tablet 10 mg PO QHS for cholesterol #90 TABLETS 12/12/23 apixaban 2.5 mg tablet 2.5 mg PO BID called to [facility] tabs 08/13/24 acetaminophen 325 mg capsule 325 mg PO Q4H PRN pain 11/12/24 magnesium chloride 64 mg PO QHS Supplement 11/12/24 hydralazine 50 mg tablet 50 mg PO TID #90 tabs 11/27/24 levetiracetam 750 mg tablet 750 mg PO BID #60 tabs 11/27/24 sodium chloride 1,000 mg soluble tablet 1,000 mg PO TIDCM #90 tabs 11/27/24 Hospital Course Operations None Procedures Electroencephalogram (Done at [facility]. No epileptiform activity but, she had continuous left hemispheric polymorphic theta slow-wave activity indicative of astructural lesion over the left hemisphere which is where the meningioma was.) Summary of Care Provided Minutes Spent on Discharge: 42 Hospital Course: SARAH MCGUIRE, is a 78 YO F with a PMH of paroxysmal atrial fibrillation, hypertension, hyperlipidemia, CVA (following resection of meningioma in December of 2022), chronic hyponatremia, large meningioma resected at [facility] by Dr. 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 Noncontrast brain CT showed a moderate-sized mixed density left subdural fluid collection concerning for bleeding. Shewas transferred to [facility] ED for possible subdural hematoma. She was given Kcentrain the ED prior to transfer to reverse the Apixaban. MRI of the brain, MRA brain and MRA neck showed no evidence of a new CVA. Neurology evaluated the patient and felt her history was highly suggestive of seizures although no epileptic discharges were captured on EEG. She had continuous left hemisphericpolymorphic theta slow-wave activity indicative of a structural lesion over the left hemisphere and this is the area where she had the craniotomy in 2022. She was started on Keppra 1000 mg p.o. twice daily. Neurosurgery was consulted for the extradural fluid collection and recommended holding anticoagulation for 2 weeks since she could have a subacute on chronic extradural fluid collection related to a fall she had approximately 1 month prior to presenting to the emergency department at [facility]. Coreg was held for bradycardia but, amiodarone was continued. Blood pressures were high so lisinopril was increased to 10 mg daily. Doxazosin, HCTZ and spironolactone were discontinued. Serum osmolality was low at [facility] but, I could not find a urineosmolality or urine sodium in my review of the chart. Speech was back to baseline at the time of DC from [facility]. She was seen by PT/OT/ST at [facility] and acute rehab was recommended at [place]. She was transferred to the acute inpt rehab unit at [facility] on 11/12/24 for 3 hours of therapy daily to restore function/independence at or near her level prior to recent events. Since her craniotomy in 2022 she requires assistance from family for many ADL's. sarah was taking Cefdinir at the time of admission to acute rehab for reported urinary tract infection. Sodium was 127 at admission to rehab. Serum osmolality was 271 and urine osmolality 591. Urine sodium was 89. Sodium dropped to 124 on 11/15/2024. She is chronically hyponatremic. Lisinopril was discontinued since it can cause a low sodium. She was placed on fluid restriction and salt tabs but, sodium remained low. She was given 2 dose of Lasix and the sodium came up to 134. When the sodium was 134 the BUN was 32 with a creatinine of 0.94. Salt tabs were decreased to twice a day and fluid restriction was continued. The sodium began to decreases again. On 11/28/25 it was 125 and this was on fluid restriction, salt tabs 1 gm TID and 2 doses of Lasix. Urine osmolality was 519 and the urine sodium was 48. Serum osmolality was 281. She was given Tolvaptan 15 mg and on 11/29 the sodium was 135. She will continue salt tabs and fluid restriction at home and will follow up with Dr. Schulte. She will have a BMP done in 1 week post DC....[facility] to draw and send results to the PCP. with fluid restriction and reportedly drinking less than 1 liter a day and often less than 800 cc the BUN has remained at 9-11 since 11/19 when the BUN was 27 and the sodium was 134? Creat has remained in the 0.70 - 75range. At the time of discharge she is able to do 8 sit to stands at MIN A usingher upper extremities to rise in 30 seconds. She does a 3/4 rise and does not get fully upright. She is able to ascend/descend three 4 inch steps with 2 handrails at min assist/contact-guard assist. She has ambulated up to 130 feet with a rollator walker. She needs moderate assistance to get out of bed but is min assist for sit to stand. She is supervision/set up for eating and grooming. She requires minimal assistance with tub/shower transfer, bathing, upper body dressing and toileting. She is max assist with toilet transfer. She requires moderate assistance for lower body bathing. sarah has some barriers to making progress in therapy. she has severe hearing loss and does not wear her hearing aids. They do not ring aids in and I am speaking with repeat myself multiple times nor do I have to scream at her. When she does not have the hearing aids in she needs a lot of cuing to complete activities. In addition to hearing lossyony is very anxious and frequently does not listen to what is being said to her because she is talking over the person peaking to her. She has numerous somaticcomplaints and perseverates on things that happened in the past but, are not happening currently. She chronically c/o nausea but, she is eating 75-100% of her meals. She days the nausea is do to getting too many pills at once but, nursing is spreading them out and she continues to c.o this. When you are speaking with her about something that makes her anxious she gets tremulous, shakes her legs and then starts gagging. I have watched her do this and then she spits out some thick, clear spit. It is not even sputum. No emesis and then she will eat a meal? She was tried on Buspar while on rehab but, it was not effective. I have recommended to her daughter Alexsandra that Sarah be seen by psychiatry/psychotherapy to get her anxiety under control. She has had no seizures while on rehab. I suspect the slurred speech andtrouble walking at presentation to the ER were due to severe bradycardia/hypotension and not due to seizures. Keppra was decreased to 750 mgBID while on rehab and she has had no slurred speech or increased neurologic events. No one has witnessed any seizure activity. she is going to follow up with Dr. Melchor post DC from rehab. HR is WNL on Amiodarone 200 mg daily with no tachycardia. She has not beenbradycardic. Sarah was discharged home with her daughter Alexsandra on 11/29/2024 and will have [facility] home health care. Will have home health care draw a BMP in 1 week with the results to go to her primary care physician. Physical Exam Const alert, oriented x3 and no apparent distress Constitutional Narrative: Extremely anxious HEENT HEENT Narrative: MM are a little dry No evidence of thrush. She has localized alopecia in the left frontal cranium secondary to previous meningioma with resection. Eyes PERRL, EOMs intact bilaterally, conjunctivae normal and no scleral icterus Eyes Narrative: No discharge from the eyes. Neck Neck Narrative: She has loud bruits over both carotids however this may be due to radiation of the aortic stenosis murmur and not due to carotid stenosis. MRI of the neck done recently did not mention any significant carotid stenosis. Chest Chest: symmetrical chest wall rise Resp normal respiratory effort, normal air movement and clear to auscultation bilaterally Resp Narrative: Initially had some coarse crackles in the bases but after few deep breaths this resolved. She has been lying in bed all day and not taking deep breaths. She has no cough. Effort and Inspection: able to speak in complete sentences Cardio regular rate, regular rhythm, no rub and no gallops Cardio Narrative: No ectopy. She has a 3/6 PATY at the second RICS with radiation to the LVOT, LLSB, apex, carotids and into the left axilla. No diastolic MM appreciated. GI normal to inspection, nondistended, normoactive bowel sounds, soft to palpation and non-tender GI Narrative: No guarding with palpation. Ate 75 to 100% of her breakfast today Extremity no calf tenderness and no pedal edema Skin General Skin Exam: no breakdown Rashes: no rashes Neuro CN's II-XII intact bilaterally, moves all extremities and no focal motor deficits Neuro Narrative: Generalized weakness. Severe hearing loss. Psych Psych Narrative: Severely anxious with tremulous upper extremities and shaking her legs. Tearfulat times. Gagging at times. Weight / BMI Weight Weight: 106 lb 4.8 oz Body Mass Index (BMI) 24.7 ABG / Lab / Microbiology Data 11/27/24 05:38 11/29/24 07:37 Laboratory: Laboratory Results - last 24 hr 11/28/24 05:12: Sodium 126 L, Potassium 3.8, Chloride 92 L, Carbon Dioxide 22.8,Anion Gap 11, BUN 10, Creatinine 0.75, Estim Creat Clear Calc 39.62 L, Est GFR (MDRD) Non-Af 80, BUN/Creatinine Ratio 13.0, Glucose 94, Calcium 8.9, Phosphorus3.5, Albumin 3.6 11/28/24 13:16: Serum Osmolality 281 11/28/24 16:14: Urine Osmolality 519, Ur Random Sodium 48 11/29/24 07:37: Sodium 135, Potassium 4.0, Chloride 101, Carbon Dioxide 23.5, Anion Gap 10, BUN 11, Creatinine 0.88, Estim Creat Clear Calc 36.01 L, Est GFR (MDRD) Non-Af 66, BUN/Creatinine Ratio 12.2, Glucose 114 H, Calcium 8.8 Microbiology: Microbiology 11/25/24 07:47 Urine Catheter - Catheter Urine Culture - Final Pseudomonas aeruginosa D/C Instructions Discharge Diet: - (Limit fluid to five 8 ounce cups a day. Regular diet. ) Weight Bearing Status: Full weight bearing Call your doctor if you observe: Fever of 101 or Higher, Inability to urinate, Inability to have a bowel movement, Shortness of breath, Dizziness, Fainting spells, Swelling in the ankles, Chest pain and Calf discomfort DC O2, CPAP, BIPAP Needs Home O2 Discharge instructions: No Pending Tests Upon Discharge: none Please Follow Up With: Monika Venegas MD When: listed later in this document. You will also need to follow up with Dr. Melchor from neurology. Meaningful Use Info Meaningful Use Meaningful Use Diagnoses (Choose all that apply): None applicable Ischemic Stroke Statin Dosing Therapy Reference: STATIN DOSE THERAPY REFERENCE: * Patients > 75 years receive moderate or high dose statin therapy. * Patients 75 years or YOUNGER should receive HIGH intensity statin dose unless contraindicated. You will be required to document reason for non-treatment if statin daily dose does not meet guidelines. HIGH DOSE STATIN THERAPY DAILY Atorvastatin > than or = to 40 mg Rosuvastatin > than or = to 20 mg Amlodipine + Atorvastatin > than or = to 2.5/40 mg Ezetimibe + Simvastatin 10/80 mg Simvastatin 80mg Discharge Plan Admission Admit Date/Time: 11/12/24 18:16 Primary Reason for Your Visit: Debility Attending Provider: Jo-Ann Arias Primary Care Provider: Monika Venegas Consulting Providers: Chente Leung; Yifan Roque; Gagan Schulte; Mattie Haynes; Christy Baer; Argentina Schmitz; Sanjuana Flores; Deepak Byrd; Gibson Yang; Sylvia Cabral Instructions Patient Instructions: Anxiety Disorders Tx, ED Anxiety Reaction, ED Panic Attack Additional Instructions / Restrictions: 1. We have not witnessed any seizures while you have been on rehab. We decreased the dose of the Keppra (antiepileptic drug) to 750 mg twice a day [id number] mg twice a day. You had an EEG at [facility] and it was negative for seizure. You will need to follow up with a neurologist. There is a excellent neurologanshul Hassan and his name is Dr. Melchor. He may want to do some additional testing to see if you even need to be on and antiseizure medication. 2. Your sodium has been low while on rehab. This was a problem the last time you were on rehab also. 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 With this diagnosis the problem is NOT that your body is low in sodium.....it is that you have an excessof water that is diluting the sodium out. The treatment for this condition is to restrict fluid intake. You should not drink more than five 8 oz cups of water a day. Sometimes this is not enough and you have to take salt tabs as well. While you were on rehab we also had to give you a diuretic called Lasix acouple times to get rid of the excess water. You will need to have follow up lab done after you leave rehab to make sure the sodium is staying stable. Sometimes when people have SIADH and it is hard to keep the sodium up they have to see a head stock transfer clerk(kidney doctor) to help manage the medications. I would recommend follow up with Dr. Schulte who is a kidney doctor who sees outpatients at the hospital in his office. 3. You are very anxious. You tend to get an idea in your head and stick with itand agonize about it, even when things have been changed. Nausea can be a sx of uncontrolled anxiety. When we get anxious it can cause lightheadedness, headache, palpitations, chest pain, shortness of breath, nausea, diarrhea, difficulty sleeping and fatigue. Being anxious can feel terrible. I think someof the symptoms you have are due to anxiety and I suspect you would feel a lot better if this could be controlled. I think you would benefit from seeing a psychiatrist to try medication to control your anxiety and I also think you would benefit from counselling. TAlk to your PCP about this. 4. If you or Alexsandra have questions after you leave rehab please do not hesitateto call me. I have given you some handouts that talk about anxiety and some of the symptoms uncontrolled anxiety can cause......you have many of these symptoms.......I hope you and Alexsandra are able to read these together so you can make a plan for getting help to control anxiety. Your heart rate is normal now that you are off COREG. You continue to take Amiodarone that helps keep your heart rate in control. You are back on Eliquis which you need to continue to take to prevent strokes due to atrial fibrillation(AFIB). OFFICE: [phone] CELL: [phone] NURSES STATION ON REHAB: [phone] Discharge Orders/Prescriptions Prescriptions: New hydralazine 50 mg Tablet 50 mg PO TID Qty: 90 0RF levetiracetam 750 mg Tablet 750 mg PO BID Qty: 60 0RF sodium chloride 1,000 mg Tablet,Soluble 1,000 mg PO TIDCM Qty: 90 0RF Continued multivitamin Tablet 1 tablet PO DAILY cyanocobalamin (vitamin B-12) 500 MCG tablet,chewable 1,000 mcg PO DAILY cholecalciferol (vitamin D3) 125 MCG capsule 125 mcg PO DAILY zinc sulfate [Orazinc] 50 mg zinc (220 mg) capsule 220 mg PO DAILY acetaminophen 325 mg capsule 325 mg PO Q4H PRN (Reason: pain) magnesium chloride 64 mg PO QHS atorvastatin 10 mg tablet 10 mg PO QHS Qty: 90 3RF amiodarone 200 mg tablet 200 mg PO DAILY Qty: 90 3RF apixaban 2.5 mg tablet 2.5 mg PO BID Qty: 180 4RF Discontinued lisinopril 10 mg tablet 10 mg PO DAILY cefdinir 300 mg capsule 300 mg PO BID levetiracetam [Keppra] 1,000 mg tablet 1,000 mg PO BID Other Ambulatory Orders: Basic Metabolic Profile (BMP) (Routine) Timeframe: 1 Week Location: Determined by Patient Ordered By: Dr. Jo-Ann Arias Referrals / Follow Up: Andrew Bueno [Other] - 12/06/24 2:30 pm (this will be an over the phone appt. ) Monika Venegas MD [Primary Care Provider] - 12/03/24 4:10 pm (Seeing Dr. Kiran from now on. ) Gagan Schulte MD [Med Staff - Consulting] - (Dr Schulte's office will contact you) Odilon Melchor MD [Non-Staff -Ordering Privileges] - 12/20/24 9:00 am () Disposition Disposition (needs filled in before D/C Order can be placed): Home Health Service Charges/Coding Visit Charges Inpatient E&M: 17917 Disch Hosp >30min 11/29/24 1151 <Electronically signed by Jo-Ann Arias DO> Cosigner Signature (if applicable): CC: Dr. Monika Venegas MD; Dr. Gagan Schulte MD; Dr. Jo-Ann Arias DO; Dr. Odilon Melchor MD; MAGALY Davis~ Signed [facility] Work Phone: [phone]) 274-588406-24-2025 Progress note Author Jo-Ann Arias [facility] Note Date/Time November 27, 2024 4:[address] [facility] Medical Records Department [address] [place] [address] Progress Note 11/26/24 1206 MR#: [id number] Acct: [id number] Name: SARAH MCGUIRE Rep #:[id number] : 1945 79 From: Jo-Ann Arias DO PCP: Dr. Monika Venegas MD Status:ADM IN Location: [place] [address]1 Subjective Subjective Afebrile VSS - Maintaining appropriate oxygen saturation on RA Oral intake - FOOD good Discussed with nursing - no problems that need addressed Reviewed the THERAPY notes Medication list reviewed. All lab from today was personally reviewed. Sodium is 127, stable from 11/24/2024. The BUN is 9, down from 27 on 11/19/2024 and the creatinine is 0.7 which is down from 0.91 on 11/16/2024. Wt is going up, BUN is going down and creat is going down and sodium is going down........This is not consistent with only only drinking 580-600 cc per day? She continues to have c/o nausea and she has emesis. I was talking to her about DC and some of her issues and she started to gag......then she brought up a lot of thick mucous......more like a cough rather than regurgitation. I was not associated with taking pills or eating........I think this is due to anxiety/stress and she makes herself gag. She had been fine all morning. She perseverates on getting too many pills at one time.....she does this even when nursing spaces the medications out. she does not have this problem at home. She grew Pseudomonas aeruginosa in the urine but only 1000-10,000 colonies. Shedenies dysuria and has had no fever. The WBC is normal. NO tx indicted at thistime. She had urinary frequency over the weekend but, I think this is related to anxiety and not UTI. She denies SOB, lightheadedness, CP, palpitations, c/o nausea but eating 75- 100%of her meals most of the time, no abd pain and no diarrhea. Denies calf tenderness. Objective Data Objective Data Vital Signs: Vital Signs Temp Pulse Resp BP Pulse Ox O2 Del Method 97.7 F L 67 15 135/39 H 96 Room Air 11/26/24 06:33 11/26/24 06:37 11/26/24 06:33 11/26/24 06:37 11/26/24 06:33 11/26/24 06:33 Oxygen Delivery Method Room Air Weight: 106 lb 4.8 oz Body Mass Index (BMI) 24.7 Intake & Output: Intake and Output for Last 24 Hours 11/24/24 11/25/24 11/26/24 23:59 23:59 23:59 Intake Total 580 / 580 600 / 600 Output Total 425 / 425 525 / 525 300 / 300 Balance 155 / 155 75 / 75 -300 / -300 Lab / Micro Data 11/27/24 05:38 11/27/24 05:38 Labs: Laboratory Results - last 24 hr 11/26/24 05:26: Sodium 127 L, Potassium 4.1, Chloride 95 L, Carbon Dioxide 22.9,Anion Gap 10, BUN 9, Creatinine 0.70, Estim Creat Clear Calc 39.62 L, Est GFR (MDRD) Non-Af 87, BUN/Creatinine Ratio 12.8, Glucose 101 H, Calcium 8.8 Physical Exam Const alert, oriented x3 and no apparent distress HEENT moist oral mucous membranes Resp normal respiratory effort, normal air movement and clear to auscultation bilaterally Effort and Inspection: able to speak in complete sentences Cardio regular rate, regular rhythm, no rub and no gallops Cardio Narrative: No ectopy. She has a 3/6 PATY at the second RICS with radiation to the LVOT, LLSB, apex, carotids and into the left axilla. No diastolic MM appreciated. GI normal to inspection, nondistended, normoactive bowel sounds, soft to palpation and non-tender GI Narrative: No guarding with palpation. Extremity no calf tenderness and no pedal edema Skin General Skin Exam: no breakdown Rashes: no rashes Assessment & Plan Assessment/Plan (1) Physical debility: (2) Generalized muscle weakness: (3) Seizure disorder: (4) Intracranial epidural hematoma: (5) Acute cystitis: QUALIFIERS: Hematuria presence: without hematuria Qualified Code(s): N30.00 - Acute cystitis without hematuria (6) Paroxysmal atrial fibrillation: (7) Anticoagulant long-term use: (8) Bradycardia, sinus: (9) long-term current use of amiodarone: (10) High cholesterol: (11) HTN (hypertension): QUALIFIERS: Hypertension type: primary hypertension Qualified Code(s): I10 - Essential (primary) hypertension (12) Carotid artery bruit: QUALIFIERS: Laterality: bilateral Qualified Code(s): R09.89 - Other specified symptoms and signs involving the circulatory and respiratory systems (13) Mild aortic stenosis: (14) Grade II diastolic dysfunction: (15) Chronic anemia: (16) Hypo-osmolality and hyponatremia: (17) Presbycusis: QUALIFIERS: Laterality: bilateral Qualified Code(s): 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 Continue therapy 2. Lasix 40 mg p.o. today 3. Recheck a BMP in the AM. 4. DC Buspar.......because of nausea.......the nausea predated the Buspar and she is c/o taking too many pills. We discussed follow up as an OP with psychotherapy to learn to control her anxiety. Charges/Coding Visit Charges Inpatient E&M: 36406 Subs Hosp L1 11/27/24 1601 <Electronically signed by Jo-Ann Arias DO> Jo-Ann Arias DO [facility] Signature (if applicable): CC: ~ Signed [facility] Work Phone: [phone]) 928-693206-24-2025 [facility] Medical Records Department [address] [place] [address] Discharge Summary 11/27/24 1647 MR#: [id number] Acct: [id number] Name: SARAH MCGUIRE Rep #: [id number] : 1945 79 From: Jo-Ann Arias DO PCP: Dr. Monika Venegas MD Status:ADM IN Location: [place] [address] Providers Date of Admission: 11/12/24 Date of Discharge: 11/28/24 Primary Care Physician: Dr. Monika Venegas MD Consultations 11/28/24 12:17 Consult: Nephrology Routine Consulting Provider: [facility] Reason for Consult: hyponatremia with hx SIADH EMERGENT Consult: Yes Notified: Yes Date Notified: 11/28/24 Time Notified: 12:17 Method of Notification: Answering Service Reason For Visit: SUBDURAL HEMATOMA Diagnosis Discharge Diagnosis (1) Physical debility: Status: Acute Code(s): R53.81 - Other malaise (2) Generalized muscle weakness: Status: Acute Code(s): M62.81 - Muscle weakness (generalized) Plan: Improved. (3) Seizure disorder: Status: Acute Code(s): G40.909 - Epilepsy, unspecified, not intractable, without status epilepticus Plan: I suspect the etiology of the slurred speech and difficulty walking was severe bradycardia with poor cerebral perfusion. EEG was negative at [facility]. She was placed on Keppra 1,000 BID which was making her drowsy. Also likely contributing to hyponatremia. We decreased the dose to 750 mg while on rehab and she has had no events. HR is now always WNL since Coreg was discontinued, She remains on Amiodarone 200 mg daily. She will follow up with neurology to address thye need for continued Keppra. (4) Intracranial epidural hematoma: Status: Chronic Code(s): S06.4XAA - Epidural hemorrhage with loss of consciousness status unknown, initial encounter Plan: The epidural hematoma is not new. She had no recent head trauma. Neurosurgery recommended holding Eliquis for 2 weeks and then restarting. She has been restarted on Eliquis 2.5 mg BID prior to DC from rehab. (5) Acute cystitis: Status: Resolved Code(s): N30.00 - Acute cystitis without hematuria Qualifiers: Hematuria presence: without hematuria Qualified Code(s): N30.00 - Acute cystitis without hematuria Plan: This was present at admission to rehab and she came to us on Cefdinir. She had a UA done on 11/25 prior to DC and it had 5-10 WBC's with no bacteria. The urine culture grew 1000- 10,000 colonies of Pseudomonas aeruginosa. She is afebrile with a normal white blood cell count and denies dysuria. Asymptomatic bacteriuria in the elderly is not uncommon and since she is afebrile, asymptomatic and has a normal white blood cell count there is no reason to treat this. (6) Paroxysmal atrial fibrillation: Status: Chronic Code(s): I48.0 - Paroxysmal atrial fibrillation (7) Anticoagulant long-term use: Status: Chronic Code(s): Z79.01 - long-term (current) use of anticoagulants Plan: Continue Eliquis 2.5 mg BID. (8) Bradycardia, sinus: Status: Inactive Code(s): R00.1 - Bradycardia, unspecified Plan: Resolved with the4 discontinuation of Coreg. HR is WNL on Amiodarone 200 mg daily. (9) long-term current use of amiodarone: Status: Chronic Code(s): Z79.899 - Other terminal computer operator (current) drug therapy (10) High cholesterol: Status: Chronic Code(s): E78.00 - Pure hypercholesterolemia, unspecified (11) HTN (hypertension): Status: Chronic Code(s): I10 - Essential (primary) hypertension Qualifiers: Hypertension type: primary hypertension Qualified Code(s): I10 - Essential (primary) hypertension Plan: Continue atorvastatin (12) Carotid artery bruit: Status: Chronic Code(s): R09.89 - Other specified symptoms and signs involving the circulatory and respiratory systems Qualifiers: Laterality: bilateral Qualified Code(s): R09.89 - Other specified symptoms and signs involving the circulatory and respiratory systems (13) Mild aortic stenosis: Status: Chronic Code(s): I35.0 - Nonrheumatic aortic (valve) stenosis (14) Grade II diastolic dysfunction: Status: Chronic Code(s): I51.89 - Other ill-defined heart diseases (15) Chronic anemia: Status: Chronic Code(s): D64.9 - Anemia, unspecified (16) Hypo-osmolality and hyponatremia: Status: Resolved Code(s): E87.1 - Hypo-osmolality and hyponatremia Plan: 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 The Keppra may be causing the sodium to continue to drop. She was placed on fluid restriction, salt tabs and was given Lasix with no improvement. On 11/28/25 the sodium was 125. She was given 15 mg of Tolvaptan on 11/28 and the sodium on 11/29 was 135. She is being discharged on salt tabs and fluid restircition and will follow up with Dr. Schulte post [place] from rehab. (17) Presbycusis: Status: Chronic Code(s): H91.10 - Presbycusis, unspecified ear Qualifiers: Laterality: bilateral Qualified Code(s): H91.13 - (more content not included)... [facility]06-24-2025 Progress note [facility] Medical Records Department [address] [place] [address] Progress Note 11/26/24 1206 MR#: [id number] Acct: [id number] Name: SARAH MCGUIRE Rep #:[id number] : 1945 79 From: Jo-Ann Arias PCP: Dr. Monika Venegas MD Status:ADM IN Location: [place] [address] Subjective Subjective Afebrile VSS - Maintaining appropriate oxygen saturation on RA Oral intake - FOOD good Discussed with nursing - no problems that need addressed Reviewed the THERAPY notes Medication list reviewed. All lab from today was personally reviewed. Sodium is 127, stable from 11/24/2024. The BUN is 9, down from 27 on 11/19/2024 and the creatinine is 0.7 which is down from 0.91 on 11/16/2024. Wt is going up, BUN is going down and creat is going down and sodium is going down........This is not consistent with only only drinking 580-600 cc per day? She continues to have c/o nausea and she has emesis. I was talking to her about DC and some of her issues and she started to gag......then she brought up a lot of thick mucous......more like a cough rather than regurgitation. I was not associated with taking pills or eating........I think this isdue to anxiety/stress and she makes herself gag. She had been fine all morning. She perseverates ongetting too many pills at one time.....she does this even when nursing spaces the medications out. she does not have this problem at home. She grew Pseudomonas aeruginosa in the urine but only 1000-10,000 colonies. Shedenies dysuria and has had no fever. The WBC is normal. NO tx indicted at thistime. She had urinary frequency over the weekend but, I think this is related to anxiety and not UTI. She denies SOB, lightheadedness, CP, palpitations, c/o nausea but eating 75- 100%of her meals most of the time, no abd pain and no diarrhea. Denies calf tenderness. Objective Data Objective Data Vital Signs: Vital Signs Temp Pulse Resp BP Pulse Ox O2 Del Method 97.7 F L 67 15 135/39 H 96 Room Air 06/23/25 06:33 11/26/24 06:37 11/26/24 06:33 11/26/24 06:37 11/26/24 06:33 11/26/24 06:33 Oxygen Delivery Method Room Air Weight: 106 lb 4.8 oz Body Mass Index (BMI) 24.7 Intake & Output: Intake and Output for Last 24 Hours 11/24/24 11/25/24 11/26/24 23:59 23:59 23:59 Intake Total 580 / 580 600 / 600 Output Total 425 / 425 525 / 525 300 / 300 Balance 155 / 155 75 / 75 -300 / -300 Lab / Micro Data 11/27/24 05:38 11/27/24 05:38 Labs: Laboratory Results - last 24 hr 11/26/24 05:26: Sodium 127 L, Potassium 4.1, Chloride 95 L, Carbon Dioxide 22.9,Anion Gap 10, BUN 9, Creatinine 0.70, Estim Creat Clear Calc 39.62 L, Est GFR (MDRD) Non-Af 87, BUN/Creatinine Ratio 12.8, Glucose 101 H, Calcium 8.8 Physical Exam Const alert, oriented x3 and no apparent distress HEENT moist oral mucous membranes Resp normal respiratory effort, normal air movement and clear to auscultation bilaterally Effort and Inspection: able to speak in complete sentences Cardio regular rate, regular rhythm, no rub and no gallops Cardio Narrative: No ectopy. She has a 3/6 PATY at the second RICS with radiation to the LVOT, LLSB, apex, carotids and into the left axilla. No diastolic MM appreciated. GI normal to inspection, nondistended, normoactive bowel sounds, soft to palpation and non-tender GI Narrative: No guarding with palpation. Extremity no calf tenderness and no pedal edema Skin General Skin Exam: no breakdown Rashes: no rashes Assessment & Plan Assessment/Plan (1) Physical debility: (2) Generalized muscle weakness: (3) Seizure disorder: (4) Intracranial epidural hematoma: (5) Acute cystitis: QUALIFIERS: Hematuria presence: without hematuria Qualified Code(s): N30.00 - Acute cystitis without hematuria (6) Paroxysmal atrial fibrillation: (7) Anticoagulant long-term use: (8) Bradycardia, sinus: (9) long-term current use of amiodarone: (10) High cholesterol: (11) HTN (hypertension): QUALIFIERS: Hypertension type: primary hypertension Qualified Code(s): I10 - Essential (primary) hypertension (12) Carotid artery bruit: QUALIFIERS: Laterality: bilateral Qualified Code(s): R09.89 - Other specified symptoms and signs involving the circulatory and respiratory systems (13) Mild aortic stenosis: (14) Grade II diastolic dysfunction: (15) Chronic anemia: (16) Hypo-osmolality and hyponatremia: (17) Presbycusis: QUALIFIERS: Laterality: bilateral Qualified Code(s): 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 Continue therapy 2. Lasix 40 mg p.o. today 3. Recheck a BMP in the AM. 4. DC Buspar.......because of nausea.......the nausea predated the Buspar and she is c/o taking toomany pills. We discussed follow up as an OP with psychotherapy to learn to control her anxiety. Charges/Coding Visit Charges Inpatient E&M: 30792 Subs Hosp L1 11/27/24 1601 Jo-Ann Arias DO Cosigner Signature (if applicable): CC: ~ Signed [facility]06-19-2025 Progress note Author Jo-Ann Марияjenny [facility] Note Date/Time November 22, 2024 6:46 pm [facility] Medical Records Department [address] [place] [address] Progress Note 11/22/24 0850 MR#: [id number] Acct: [id number] Name: SARAH MCGUIRE Rep #:[id number] : 1945 79 From: Jo-Ann Arias DO PCP: Dr. Monika Venegas MD Status:ADM IN Location: [place] [address] Subjective Subjective Sarah was seen on team rounds today. Afebrile VSS - Maintaining appropriate oxygen saturation on RA Oral intake - FOOD good FLUIDS she is on fluid restriction for SIADH.Suspectshe is drinking more than what is being recorded because the BUN has decreased significantly since last checked and the Sodium dropped to 129 today? Discussed with nursing - no problems that need addressed Reviewed the THERAPY notes Medication list reviewed. All lab drawn this morning was personally reviewed. Sodium today is 129, down from 134 on 11/19/2024. Potassium is 4.3. BUN is only 11 today which is down from 27 on 11/19/2024. Creatinine is 0.76 which is down from 0.94 on 11/18/2024. I suspect she is getting more fluid that what nursing is giving her. I have no other explanation for why the BUN dropped 16 points in the past 3 days. The only new medication in the past couple days is Buspar and hyponatremia is not a SE of this medication. We did decrease the salt tabs to BID from TID. TSH and cortisol are normal. Keppra can cause hyponatremia but, it would not cause the BUN to drop. She tends to perseverate on things that happened in the past. When she does this she gets very anxious and starts shaking her legs and has tremors in the hands and gets emotional and then c/o nausea. I think the complaints of nausea are due to uncontrolled anxiety and not due to any of the meds she is getting. She is eating well and has a good appetite and is not having emesis. Keeps perseverating on how this happened the last time she was in rehab and it was because we did not space out her pills but, nursing is spacing out the medications......then she blames it on the salt tabs because she says they tastebad. Objective Data Objective Data Vital Signs: Vital Signs Temp Pulse Resp BP Pulse Ox O2 Del Method 97.9 F 77 17 140/44 H 97 Room Air 11/22/24 06:00 11/22/24 06:14 11/22/24 06:00 11/22/24 06:14 11/22/24 06:00 11/22/24 06:00 Oxygen Delivery Method Room Air Weight: 104 lb 11.513 oz Body Mass Index (BMI) 24.3 Intake & Output: Intake and Output for Last 24 Hours 11/20/24 11/21/24 11/22/24 23:59 23:59 23:59 Intake Total 650 / 650 830 / 830 220 / 220 Output Total 300 / 300 550 / 550 200 / 200 Balance 350 / 350 280 / 280 20 / 20 Lab / Micro Data 11/19/24 08:50 11/22/24 05:19 Labs: Laboratory Results - last 24 hr 11/22/24 05:19: Sodium 129 L, Potassium 4.3, Chloride 98, Carbon Dioxide 21.4, Anion Gap 10, BUN 11, Creatinine 0.76, Estim Creat Clear Calc 39.62 L, Est GFR (MDRD) Non-Af 79, BUN/Creatinine Ratio 14.8, Glucose 95, Calcium 8.8 Physical Exam Const alert, oriented x3 and no apparent distress HEENT moist oral mucous membranes Resp normal respiratory effort, normal air movement and clear to auscultation bilaterally Effort and Inspection: able to speak in complete sentences Cardio regular rate, regular rhythm, no rub and no gallops Cardio Narrative: No ectopy. She has a 3/6 PATY at the second RICS with radiation to the LVOT, LLSB, apex, carotids and into the left axilla. No diastolic MM appreciated. GI normal to inspection, nondistended, normoactive bowel sounds, soft to palpation and non-tender GI Narrative: No guarding with palpation. Extremity no calf tenderness and no pedal edema Skin General Skin Exam: no breakdown Rashes: no rashes Psych Psych Narrative: the restlessness, shaking of the legs and tremoring of the hands is somewhat better today. she is sleeping better. 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 Continue therapy 2. The nurses are spacing out her pills so she does not get too many at one time. 3. Continue the BuSpar 5 mg twice daily because it seems to be helping. 4. Planning on discharging her next Tuesday. She will go home with [facility] home health care. This morning when I spoke to her she did not have her hearing aids in because she says they do not help however her daughter Alexsandra brought them in and put them in her ears and when we had the team meeting no one had to repeat themselves and we did not have to scream at her. I stayed in the room and spoketo her in a normal voice following team meeting and she understood what I was saying much better. I encouraged her to continue wearing the hearing aids because I think that they help. I also told her that hearing aids are not perfect and if there is a lot of noise in the room or people are speaking behindher and not looking at her that her hearing will be worse. I told her that whenyony is talking with someone she should not have the radio or the television on and that they should always be standing in front of her talking to her and not behind her or talking to her from another room. Her daughter was present when we had this discussion. Charges/Coding Visit Charges Inpatient E&M: 50247 Subs Hosp L2 11/22/24 1846 <Electronically signed by Jo-Ann Arias DO> Jo-Ann Arias DO Cosigner Signature (if applicable): CC: ~ Signed [facility] Work Phone: 1(777) 681-953906-19-2025 Progress note [facility] Medical Records Department [address] [place] [address] Progress Note 11/22/24 0850 MR#: [id number] Acct: [id number] Name: SARAH MCGUIRE Rep #:[id number] : 1945 79 From: Jo-Ann Arias DO PCP: Dr. Monika Venegas MD Status:ADM IN Location: [place] [address] Subjective Subjective Sarah was seen on team rounds today. Afebrile VSS - Maintaining appropriate oxygen saturation on RA Oral intake - FOOD good FLUIDS she is on fluid restriction for SIADH.Suspectshe is drinking more than what is being recorded because the BUN has decreased significantly since last checked and the Sodium dropped to 129 today? Discussed with nursing - no problems that need addressed Reviewed the THERAPY notes Medication list reviewed. All lab drawn this morning was personally reviewed. Sodium today is 129, down from 134 on 11/19/2024. Potassium is 4.3. BUN is only 11 today which is down from 27 on 11/19/2024. Creatinine is 0.76 which is down from 0.94 on 11/18/2024. I suspect she is getting more fluid that what nursing is giving her. I have no other explanation for why the BUN dropped 16 points in the past 3 days. The only new medication in the past couple days is Buspar and hyponatremia is not a SE of this medication. We did decrease the salt tabs to BID from TID. TSH and cortisol are normal. Keppra can cause hyponatremia but, it would not cause the BUN to drop. She tends to perseverate on things that happened in the past. When she does this she gets very anxious and starts shaking her legs and has tremors in the hands and gets emotional and then c/o nausea.I think the complaints of nausea are due to uncontrolled anxiety and not due to any of the meds sheis getting. She is eating well and has a good appetite and is not having emesis. Keeps perseverating on how this happened the last time she was in rehab and it was because we did not space out her pills but, nursing is spacing out the medications......then she blames it on the salt tabs because shesays they tastebad. Objective Data Objective Data Vital Signs: Vital Signs Temp Pulse Resp BP Pulse Ox O2 Del Method 97.9 F 77 17 140/44 H 97 Room Air 11/22/24 06:00 11/22/24 06:14 11/22/24 06:00 11/22/24 06:14 11/22/24 06:00 11/22/24 06:00 Oxygen Delivery Method Room Air Weight: 104 lb 11.513 oz Body Mass Index (BMI) 24.3 Intake & Output: Intake and Output for Last 24 Hours 11/20/24 11/21/24 11/22/24 23:59 23:59 23:59 Intake Total 650 / 650 830 / 830 220 / 220 Output Total 300 / 300 550 / 550 200 / 200 Balance 350 / 350 280 / 280 20 / 20 Lab / Micro Data 11/19/24 08:50 11/22/24 05:19 Labs: Laboratory Results - last 24 hr 11/22/24 05:19: Sodium 129 L, Potassium 4.3, Chloride 98, Carbon Dioxide 21.4, Anion Gap 10, BUN 11, Creatinine 0.76, Estim Creat Clear Calc 39.62 L, Est GFR (MDRD) Non-Af 79, BUN/Creatinine Ratio 14.8, Glucose 95, Calcium 8.8 Physical Exam Const alert, oriented x3 and no apparent distress HEENT moist oral mucous membranes Resp normal respiratory effort, normal air movement and clear to auscultation bilaterally Effort and Inspection: able to speak in complete sentences Cardio regular rate, regular rhythm, no rub and no gallops Cardio Narrative: No ectopy. She has a 3/6 PATY at the second RICS with radiation to the LVOT, LLSB, apex, carotids and into the left axilla. No diastolic MM appreciated. GI normal to inspection, nondistended, normoactive bowel sounds, soft to palpation and non-tender GI Narrative: No guarding with palpation. Extremity no calf tenderness and no pedal edema Skin General Skin Exam: no breakdown Rashes: no rashes Psych Psych Narrative: the restlessness, shaking of the legs and tremoring of the hands is somewhat better today. she is sleeping better. Assessment & Plan Assessment/Plan (1) Physical debility: (2) Generalized muscle weakness: (3) Seizure disorder: (4) Intracranial epidural hematoma: (5) Acute cystitis: QUALIFIERS: Hematuria presence: without hematuria Qualified Code(s): N30.00 - Acute cystitis without hematuria (6) Paroxysmal atrial fibrillation: (7) Anticoagulant long-term use: (8) Bradycardia, sinus: (9) long-term current use of amiodarone: (10) High cholesterol: (11) HTN (hypertension): QUALIFIERS: Hypertension type: primary hypertension Qualified Code(s): I10 - Essential (primary) hypertension (12) Carotid artery bruit: QUALIFIERS: Laterality: bilateral Qualified Code(s): R09.89 - Other specified symptoms and signs involving the circulatory and respiratory systems (13) Mild aortic stenosis: (14) Grade II diastolic dysfunction: (15) Chronic anemia: (16) Hypo-osmolality and hyponatremia: (17) Presbycusis: QUALIFIERS: Laterality: bilateral Qualified Code(s): 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 Continue therapy 2. The nurses are spacing out her pills so she does not get too many at one time. 3. Continue the BuSpar 5 mg twice daily because it seems to be helping. 4. Planning on discharging her next Tuesday. She will go home with [facility] home health care. This morning when I spoke to her she did not have her hearing aids in because she says they do not help however her daughter Alexsandra brought them in and put them in her ears and when we had the team meeting no one had to repeat themselves and we did not have to scream at her. I stayed in the room and spoketo her in a normal voice following team meeting and she understood what I was saying much better. I encouraged her to continue wearing the hearing aids because I think that they help. I also told her that hearing aids are not perfect and if there is a lot of noise in the room or people are speaking behindher and not looking at her that her hearing will be worse. I told her that whenyony is talking with someone she should not have the radio or the television on and that they should always be standing in front of her talking to her and not behind her or talking to her from another room. Her daughter was present when we had this discussion. Charges/Coding Visit Charges Inpatient E&M: 77240 Subs Hosp L2 11/22/24 1846 Jo-Ann Arias DO Cosigner Signature (if applicable): CC: ~ Signed [facility]06-17-2025 Progress note Author Jo-Ann Arias [facility] Note Date/Time 2024 11:5 3am [facility] Medical Records Department [address] [place] [address] Progress Note 11/20/24 1140 MR#: [id number] Acct: [id number] Name: SARAH MCGUIRE Rep #:[id number] : 1945 79 From: Jo-Ann Arias DO PCP: Dr. Monika Venegas MD Status:ADM IN Location: [place] [address] Subjective Subjective Afebrile Fluid intake yesterday was 1180 with much encouragement. Having regular bowel movements Eating 75 to 100% of most of her meals. Blood pressure over the past 24 hours has ranged from 149/29 to 161/35. Heart rate has ranged from 59-62. Has not c/o nausea to nursing. She was restless on and of through the night last night. she is anxious during the day also........this is her baseline per her dtr. Tends to perseverate also. she has no complaints today. She denies lightheadedness, cephalgia, chest pain,shortness of breath, cough, nausea/vomiting/abdominal pain, dysuria and calf tenderness today. Objective Data Objective Data Vital Signs: Vital Signs Temp Pulse Resp BP Pulse Ox O2 Del Method 98.5 F 62 17 161/35 H 98 Room Air 11/20/24 06:00 11/20/24 06:32 11/20/24 06:00 11/20/24 06:32 11/20/24 06:00 11/20/24 06:00 Oxygen Delivery Method Room Air Weight: 104 lb 11.513 oz Body Mass Index (BMI) 24.3 Intake & Output: Intake and Output for Last 24 Hours 11/18/24 11/19/24 11/20/24 23:59 23:59 23:59 Intake Total 210 / 410 1180 / 1180 Output Total 450 / 450 825 / 825 Balance -240 / -40 355 / 355 Lab / Micro Data 11/19/24 08:50 11/19/24 08:50 Physical Exam Const alert, oriented x3 and no apparent distress HEENT moist oral mucous membranes Resp normal respiratory effort, normal air movement and clear to auscultation bilaterally Effort and Inspection: able to speak in complete sentences Cardio regular rate, regular rhythm, no rub and no gallops Cardio Narrative: No ectopy. She has a 3/6 PATY at the second RICS with radiation to the LVOT, LLSB, apex, carotids and into the left axilla. No diastolic MM appreciated. GI normal to inspection, nondistended, normoactive bowel sounds, soft to palpation and non-tender GI Narrative: No guarding with palpation. Extremity no calf tenderness and no pedal edema Skin General Skin Exam: no breakdown Rashes: no rashes Neuro Neuro Narrative: gets restless and has tremors of the hands and feet when she feels stressed. Does not seem depressed. Assessment & Plan Assessment/Plan (1) Physical debility: (2) Generalized muscle weakness: (3) Seizure disorder: (4) Intracranial epidural hematoma: (5) Acute cystitis: QUALIFIERS: Hematuria presence: without hematuria Qualified Code(s): N30.00 - Acute cystitis without hematuria (6) Paroxysmal atrial fibrillation: (7) Anticoagulant long-term use: (8) Bradycardia, sinus: (9) long-term current use of amiodarone: (10) High cholesterol: (11) HTN (hypertension): QUALIFIERS: Hypertension type: primary hypertension Qualified Code(s): I10 - Essential (primary) hypertension (12) Carotid artery bruit: QUALIFIERS: Laterality: bilateral Qualified Code(s): R09.89 - Other specified symptoms and signs involving the circulatory and respiratory systems (13) Mild aortic stenosis: (14) Grade II diastolic dysfunction: (15) Chronic anemia: (16) Hypo-osmolality and hyponatremia: (17) Presbycusis: QUALIFIERS: Laterality: bilateral Qualified Code(s): 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 Continue therapy 2. Start BuSpar 5 mg p.o. twice daily starting tonight. 3. Lab ordered for . 4. Increase hydralazine to 50 mg 3 times daily to better control the systolic blood pressure. 5. Check orthostatics in the AM. Charges/Coding Visit Charges Inpatient E&M: 48998 Subs Hosp L1 11/20/24 1153 <Electronically signed by Jo-Ann Arias DO> Jo-Ann Arias DO Cosigner Signature (if applicable): CC: ~ Signed [facility] Work Phone: 1(879) 674-684406-17-2025 Progress note [facility] Medical Records Department [address] [place] [address] Progress Note 11/20/24 1140 MR#: [id number] Acct: [id number] Name: SARAH MCGUIRE Rep #:[id number] : 1945 79 From: Jo-Ann Arias DO PCP: Dr. Monika Venegas MD Status:ADM IN Location: [place] [address] Subjective Subjective Afebrile Fluid intake yesterday was 1180 with much encouragement. Having regular bowel movements Eating 75 to 100% of most of her meals. Blood pressure over the past 24 hours has ranged from 149/29 to 161/35. Heart rate has ranged from 59-62. Has not c/o nausea to nursing. She was restless on and of through the night last night. she is anxious during the day also........this is her baseline per her dtr. Tends to perseverate also. she has no complaints today. She denies lightheadedness, cephalgia, chest pain,shortness of breath,cough, nausea/vomiting/abdominal pain, dysuria and calf tenderness today. Objective Data Objective Data Vital Signs: Vital Signs Temp Pulse Resp BP Pulse Ox O2 Del Method 98.5 F 62 17 161/35 H 98 Room Air 11/20/24 06:00 11/20/24 06:32 11/20/24 06:00 11/20/24 06:32 11/20/24 06:00 11/20/24 06:00 Oxygen Delivery Method Room Air Weight: 104 lb 11.513 oz Body Mass Index (BMI) 24.3 Intake & Output: Intake and Output for Last 24 Hours 11/18/24 11/19/24 11/20/24 23:59 23:59 23:59 Intake Total 210 / 410 1180 / 1180 Output Total 450 / 450 825 / 825 Balance -240 / -40 355 / 355 Lab / Micro Data 11/19/24 08:50 11/19/24 08:50 Physical Exam Const alert, oriented x3 and no apparent distress HEENT moist oral mucous membranes Resp normal respiratory effort, normal air movement and clear to auscultation bilaterally Effort and Inspection: able to speak in complete sentences Cardio regular rate, regular rhythm, no rub and no gallops Cardio Narrative: No ectopy. She has a 3/6 PATY at the second RICS with radiation to the LVOT, LLSB, apex, carotids and into the left axilla. No diastolic MM appreciated. GI normal to inspection, nondistended, normoactive bowel sounds, soft to palpation and non-tender GI Narrative: No guarding with palpation. Extremity no calf tenderness and no pedal edema Skin General Skin Exam: no breakdown Rashes: no rashes Neuro Neuro Narrative: gets restless and has tremors of the hands and feet when she feels stressed. Does not seem depressed. Assessment & Plan Assessment/Plan (1) Physical debility: (2) Generalized muscle weakness: (3) Seizure disorder: (4) Intracranial epidural hematoma: (5) Acute cystitis: QUALIFIERS: Hematuria presence: without hematuria Qualified Code(s): N30.00 - Acute cystitis without hematuria (6) Paroxysmal atrial fibrillation: (7) Anticoagulant long-term use: (8) Bradycardia, sinus: (9) long-term current use of amiodarone: (10) High cholesterol: (11) HTN (hypertension): QUALIFIERS: Hypertension type: primary hypertension Qualified Code(s): I10 - Essential (primary) hypertension (12) Carotid artery bruit: QUALIFIERS: Laterality: bilateral Qualified Code(s): R09.89 - Other specified symptoms and signs involving the circulatory and respiratory systems (13) Mild aortic stenosis: (14) Grade II diastolic dysfunction: (15) Chronic anemia: (16) Hypo-osmolality and hyponatremia: (17) Presbycusis: QUALIFIERS: Laterality: bilateral Qualified Code(s): 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 Continue therapy 2. Start BuSpar 5 mg p.o. twice daily starting tonight. 3. Lab ordered for . 4. Increase hydralazine to 50 mg 3 times daily to better control the systolic blood pressure. 5. Check orthostatics in the AM. Charges/Coding Visit Charges Inpatient E&M: 19897 Subs Hosp L1 11/20/24 1153 Jo-Ann Arias DO Cosigner Signature (if applicable): CC: ~ Signed [facility]06-16-2025 Progress note Author Jo-Ann Марияjenny [facility] Note Date/Time November 19, 2024 10:5 9am [facility] Medical Records Department [address] [place] [address] Progress Note 11/19/24 0826 MR#: [id number] Acct: [id number] Name: SARAH MCGUIRE Rep #:[id number] : 1945 79 From: Jo-Ann Arias DO PCP: Dr. Monika Venegas MD Status:ADM IN Location: [place] [address] Subjective Subjective Afebrile VSS -blood pressure over the weekend has ranged from 125/45 to 151/44 (this AM).......most BP's are less than 140/80. Heart rate has ranged from 65-87. Lisinopril was discontinued last week due to the low sodium and she is now taking Hydralazine. Maintaining appropriate oxygen saturation on RA Oral intake - FOOD good FLUIDS poor......not even coming close to the fluid restriction of 1,000 daily. Discussed with nursing - no problems that need addressed. Needs a lot of encouragement to get up and move from nursing........ with complaints of not being able to transfer but she is able to do this and nursing encourages her to do it. Reviewed the THERAPY notes Medication list reviewed. Most recent sodium is up to 134 with a K of 4.3. BUN is 32 with stable creat at0.94. AM cortisol on Sat was WNL at 11.4. Sarah tends to perseverate on things. She is complaining of nausea after med Pass however she is eating 75 to 100% of over 80% of her meals. Keeps going back to her last admission to rehab when she had nausea and blamed it on the pills at that time as well. Seems to do better if she is given crackers with her medications. Continually perseverates on the salt tablets. Poor short-termmemory, I have to repeat myself daily about the same things. Arpit denies lightheadedness, headache, chest pain, abdominal pain, dysuria and calf tenderness. Hemoglobin is 10.7 today which is stable. Sodium is now stable at 134 and the potassium is stable at 4.3. The BUN is 27 with a creatinine of 0.84. Random blood sugar today is 138, obtained after breakfast. Objective Data Objective Data Vital Signs: Vital Signs Temp Pulse Resp BP Pulse Ox O2 Del Method 98.7 F 67 16 151/44 H 97 Room Air 11/19/24 04:37 11/19/24 04:40 11/19/24 04:37 11/19/24 04:40 11/19/24 04:37 11/19/24 04:37 Oxygen Delivery Method Room Air Weight: 104 lb 11.513 oz Body Mass Index (BMI) 24.3 Intake & Output: Intake and Output for Last 24 Hours 11/17/24 11/18/24 11/19/24 23:59 23:59 23:59 Intake Total 400 / 400 210 / 410 300 / 300 Output Total 500 / 500 450 / 450 175 / 175 Balance -100 / -100 -240 / -40 125 / 125 Lab / Micro Data 11/19/24 08:50 11/19/24 08:50 Physical Exam Const alert, oriented x3 and no apparent distress HEENT moist oral mucous membranes Resp normal respiratory effort, normal air movement and clear to auscultation bilaterally Effort and Inspection: able to speak in complete sentences Cardio regular rate, regular rhythm, no rub and no gallops Cardio Narrative: No ectopy. She has a 3/6 PATY at the second RICS with radiation to the LVOT, LLSB, apex, carotids and into the left axilla. No diastolic MM appreciated. GI normal to inspection, nondistended, normoactive bowel sounds, soft to palpation and non-tender GI Narrative: No guarding with palpation. Extremity no calf tenderness and no pedal edema Skin General Skin Exam: no breakdown Rashes: no rashes Neuro Neuro Narrative: Poor short-term memory. Asks me the same questions every day. Tends to perseverate on things. No seizure activity observed since admission. She is anxious and has intention tremors and tremors at rest. 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 Continue therapy 2. BMP and HH today. Reviewed. 3. Encouraged her to increase fluid intake to 1,000 daily. Increase fluid restriction to 1200 cc daily 4. Decrease sodium tablets to twice daily 5. Continue hydralazine for blood pressure control. I suspect the lisinopril is what led to the worsening of the hyponatremia. 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 TSH and cortisol are normal. Osmolalities andurine sodium are consistent with SIADH. 6. Needs a lot of encouragement to get up and move. 7. Start Buspar 5 mg BID for anxiety. 8. HGB is stable on apixaban. 9. Recheck a BMP . Charges/Coding Visit Charges Inpatient E&M: 44774 Subs Hosp L1 11/19/24 1050 <Electronically signed by Jo-Ann Arias DO> Jo-Ann Arias DO Cosigner Signature (if applicable): CC: ~ Signed [facility] Work Phone: [phone]) 659-769806-16-2025 Progress note [facility] Medical Records Department [address] [place] [address] Progress Note 11/19/24 0826 MR#: [id number] Acct: [id number] Name: SARAH MCGUIRE Rep #:[id number] : 1945 79 From: Jo-Ann Arias DO PCP: Dr. Monika Venegas MD Status:ADM IN Location: [place] [address] Subjective Subjective Afebrile VSS -blood pressure over the weekend has ranged from 125/45 to 151/44 (this AM).......most BP's areless than 140/80. Heart rate has ranged from 65-87. Lisinopril was discontinued last week due to the low sodium and she is now taking Hydralazine. Maintaining appropriate oxygen saturation on RA Oral intake - FOOD good FLUIDS poor......not even coming close to the fluid restriction of 1,000 daily. Discussed with nursing - no problems that need addressed. Needs a lot of encouragement to get up and move from nursing........ with complaints of not being able to transfer but she is able to do thisand nursing encourages her to do it. Reviewed the THERAPY notes Medication list reviewed. Most recent sodium is up to 134 with a K of 4.3. BUN is 32 with stable creat at0.94. AM cortisol onSat was WNL at 11.4. Sarah tends to perseverate on things. She is complaining of nausea after med Pass however she is eating 75 to 100% of over 80% of her meals. Keeps going back to her last admission to rehab when she had nausea and blamed it on the pills at that time as well. Seems to do better if she is given crackers with her medications. Continually perseverates on the salt tablets. Poor short- termmemory, I have to repeat myself daily about the same things. Arpit denies lightheadedness, headache, chest pain, abdominal pain, dysuria and calf tenderness. Hemoglobin is 10.7 today which is stable. Sodium is now stable at 134 and the potassium is stable at 4.3. The BUN is 27 with a creatinine of 0.84. Random blood sugar today is 138, obtained after breakfast. Objective Data Objective Data Vital Signs: Vital Signs Temp Pulse Resp BP Pulse Ox O2 Del Method 98.7 F 67 16 151/44 H 97 Room Air 11/19/24 04:37 11/19/24 04:40 11/19/24 04:37 11/19/24 04:40 11/19/24 04:37 11/19/24 04:37 Oxygen Delivery Method Room Air Weight: 104 lb 11.513 oz Body Mass Index (BMI) 24.3 Intake & Output: Intake and Output for Last 24 Hours 11/17/24 11/18/24 11/19/24 23:59 23:59 23:59 Intake Total 400 / 400 210 / 410 300 / 300 Output Total 500 / 500 450 / 450 175 / 175 Balance -100 / -100 -240 / -40 125 / 125 Lab / Micro Data 11/19/24 08:50 11/19/24 08:50 Physical Exam Const alert, oriented x3 and no apparent distress HEENT moist oral mucous membranes Resp normal respiratory effort, normal air movement and clear to auscultation bilaterally Effort and Inspection: able to speak in complete sentences Cardio regular rate, regular rhythm, no rub and no gallops Cardio Narrative: No ectopy. She has a 3/6 PATY at the second RICS with radiation to the LVOT, LLSB, apex, carotids and into the left axilla. No diastolic MM appreciated. GI normal to inspection, nondistended, normoactive bowel sounds, soft to palpation and non-tender GI Narrative: No guarding with palpation. Extremity no calf tenderness and no pedal edema Skin General Skin Exam: no breakdown Rashes: no rashes Neuro Neuro Narrative: Poor short-term memory. Asks me the same questions every day. Tends to perseverate on things. No seizure activity observed since admission. She is anxious and has intention tremors and tremors at rest. 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 Continue therapy 2. [facility] and today. Reviewed. 3. Encouraged her to increase fluid intake to 1,000 daily. Increase fluid restriction to 1200 cc daily 4. Decrease sodium tablets to twice daily 5. Continue hydralazine for blood pressure control. I suspect the lisinopril is what led to the worsening of the hyponatremia. 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 TSH and cortisol are normal. Osmolalities andurine sodium are consistent with SIADH. 6. Needs a lot of encouragement to get up and move. 7. Start Buspar 5 mg BID for anxiety. 8. HGB is stable on apixaban. 9. Recheck a BMP . Charges/Coding Visit Charges Inpatient E&M: 69342 Subs Hosp L1 11/19/24 1059 Jo-Ann Arias DO Cosigner Signature (if applicable): CC: ~ Signed [facility]06-13-2025 Progress note Author Jo-Ann Arias [facility] Note Date/Time November 16, 2024 7:[address] [facility] Medical Records Department [address] [place] [address] Progress Note 11/16/24 0828 MR#: [id number] Acct: [id number] Name: SARAH MCGUIRE Rep #:[id number] : 1945 78 From: Jo-Ann Arias DO PCP: Dr. Monika Venegas MD Status:ADM IN Location: [place] [address]1 Subjective Subjective Afebrile VSS -she was transitioned from lisinopril to hydralazine for blood pressure control yesterday. The blood pressure over the past 24 hours has ranged from 137/38 to 175/80. Blood pressure this a.m. was 143/40. The heart rate is ranged from 54- 89. Maintaining appropriate oxygen saturation on RA Oral intake - FOOD good FLUIDS she stayed within the 1000 cc/day fluid restriction yesterday. Discussed with nursing - Pt c/o nausea last night.......she associates this withthe salt tabs but, she was nauseated prior to the salt tabs being started and I suspect it is related to low sodium. Despite c/o nausea she ate 75-100% of breakfast this AM. She is requesting a stool softener. Reviewed the THERAPY notes Medication list reviewed. All lab drawn this morning was personally reviewed. Sodium is up to 126 today and chloride is up to 95. Potassium is stable at 4.5. The BUN is 17 and the creatinine is 0.1 which is unchanged from yesterday. No nausea when she took her medications with a cracker today. Denies cephalgia and lightheadedness. Oriented X 3 today. Good appetite today. Denies SOB, CP and calf pain. Objective Data Objective Data Vital Signs: Vital Signs Temp Pulse Resp BP Pulse Ox O2 Del Method 98.0 F 54 L 17 143/40 H 100 Room Air 11/16/24 04:58 11/16/24 04:58 11/16/24 04:58 11/16/24 04:58 11/16/24 04:58 11/16/24 04:58 Oxygen Delivery Method Room Air Weight: 104 lb 11.513 oz Body Mass Index (BMI) 24.3 Intake & Output: Intake and Output for Last 24 Hours 11/14/24 11/15/24 11/16/24 23:59 23:59 23:59 Intake Total 1120 / 1120 760 / 760 380 / 380 Output Total 1270 / 1270 750 / 750 325 / 325 Balance -150 / -150 55 55 Lab / Micro Data 11/13/24 06:37 11/16/24 04:36 Labs: Laboratory Results - last 24 hr 11/16/24 04:36: Sodium 126 L, Potassium 4.5, Chloride 95 L, Carbon Dioxide 21.4,Anion Gap 11, BUN 17, Creatinine 0.91, Estim Creat Clear Calc 35.42 L, Est GFR (MDRD) Non-Af 64, BUN/Creatinine Ratio 18.5, Glucose 103 H, Calcium 9.3, Cortisol AM Sample 11.40 Physical Exam Const alert, oriented x3 and no apparent distress Resp normal respiratory effort, normal air movement and clear to auscultation bilaterally Effort and Inspection: able to speak in complete sentences Cardio regular rate, regular rhythm, no rub and no gallops Cardio Narrative: No ectopy. She has a 3/6 PATY at the second RICS with radiation to the LVOT, LLSB, apex, carotids and into the left axilla. No diastolic MM appreciated. GI normal to inspection, nondistended, normoactive bowel sounds, soft to palpation and non-tender GI Narrative: No guarding with palpation. Extremity no calf tenderness and no pedal edema Assessment & Plan Assessment/Plan (1) Physical debility: (2) Generalized muscle weakness: (3) Seizure disorder: (4) Intracranial epidural hematoma: (5) Acute cystitis: QUALIFIERS: Hematuria presence: without hematuria Qualified Code(s): N30.00 - Acute cystitis without hematuria (6) Paroxysmal atrial fibrillation: (7) Anticoagulant long-term use: (8) Bradycardia, sinus: (9) long-term current use of amiodarone: (10) High cholesterol: (11) HTN (hypertension): QUALIFIERS: Hypertension type: primary hypertension Qualified Code(s): I10 - Essential (primary) hypertension (12) Carotid artery bruit: QUALIFIERS: Laterality: bilateral Qualified Code(s): R09.89 - Other specified symptoms and signs involving the circulatory and respiratory systems (13) Mild aortic stenosis: (14) Grade II diastolic dysfunction: (15) Chronic anemia: (16) Hypo-osmolality and hyponatremia: (17) Presbycusis: QUALIFIERS: Laterality: bilateral Qualified Code(s): 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 Continue therapy 2. Lasix 40 mg p.o. today 3. Continue 1000 cc/day fluid restriction. 4. Discontinue lisinopril and continue hydralazine for blood pressure control. 5. Recheck a BMP on Tuesday. 6. Senna added to the current drug regimen. 7. Consider starting something for anxeity after the sodium is 130 or >. she is calmer today and may not need anything after she is here for a few more days. Charges/Coding Visit Charges Inpatient E&M: 83945 Subs Hosp L1 11/16/241911 <Electronically signed by Jo-Ann Arias DO> Jo-Ann Arias DO Cosigner Signature (if applicable): CC: ~ Signed [facility] Work Phone: 1(476) 738-888106-13-2025 Progress note [facility] Medical Records Department [address] [place] [address] Progress Note 11/16/2428 MR#: [id number] Acct: [id number] Name: SARAH MCGUIRE Rep #:[id number] : 1945 78 From: Jo-Ann Arias DO PCP: Dr. Monika Venegas MD Status:ADM IN Location: [place] [address] Subjective Subjective Afebrile VSS -she was transitioned from lisinopril to hydralazine for blood pressure control yesterday. The blood pressure over the past 24 hours has ranged from 137/38 to 175/80. Blood pressure this a.m. abh616/40. The heart rate is ranged from 54-89. Maintaining appropriate oxygen saturation on RA Oral intake - FOOD good FLUIDS she stayed within the 1000 cc/day fluid restriction yesterday. Discussed with nursing - Pt c/o nausea last night.......she associates this withthe salt tabs but, she was nauseated prior to the salt tabs being started and I suspect it is related to low sodium. Despite c/o nausea she ate 75-100% of breakfast this AM. She is requesting a stool softener. Reviewed the THERAPY notes Medication list reviewed. All lab drawn this morning was personally reviewed. Sodium is up to 126 today and chloride is up to95. Potassium is stable at 4.5. The BUN is 17 and the creatinine is 0.1 which is unchanged from yesterday. No nausea when she took her medications with a cracker today. Denies cephalgia and lightheadedness.Oriented X 3 today. Good appetite today. Denies SOB, CP and calf pain. Objective Data Objective Data Vital Signs: Vital Signs Temp Pulse Resp BP Pulse Ox O2 Del Method 98.0 F 54 L 17 143/40 H 100 Room Air 11/16/24 04:58 11/16/24 04:58 11/16/24 04:58 11/16/24 04:58 11/16/24 04:58 11/16/24 04:58 Oxygen Delivery Method Room Air Weight: 104 lb 11.513 oz Body Mass Index (BMI) 24.3 Intake & Output: Intake and Output for Last 24 Hours 11/14/24 11/15/24 11/16/24 23:59 23:59 23:59 Intake Total 1120 / 1120 760 / 760 380 / 380 Output Total 1270 / 1270 750 / 750 325 / 325 Balance -150 / -150 55 / 55 Lab / Micro Data 11/13/24 06:37 11/16/24 04:36 Labs: Laboratory Results - last 24 hr 11/16/24 04:36: Sodium 126 L, Potassium 4.5, Chloride 95 L, Carbon Dioxide 21.4,Anion Gap 11, BUN 17, Creatinine 0.91, Estim Creat Clear Calc 35.42 L, Est GFR (MDRD) Non-Af 64, BUN/Creatinine Ratio 18.5, Glucose 103 H, Calcium 9.3, Cortisol AM Sample 11.40 Physical Exam Const alert, oriented x3 and no apparent distress Resp normal respiratory effort, normal air movement and clear to auscultation bilaterally Effort and Inspection: able to speak in complete sentences Cardio regular rate, regular rhythm, no rub and no gallops Cardio Narrative: No ectopy. She has a 3/6 PATY at the second RICS with radiation to the LVOT, LLSB, apex, carotids and into the left axilla. No diastolic MM appreciated. GI normal to inspection, nondistended, normoactive bowel sounds, soft to palpation and non-tender GI Narrative: No guarding with palpation. Extremity no calf tenderness and no pedal edema Assessment & Plan Assessment/Plan (1) Physical debility: (2) Generalized muscle weakness: (3) Seizure disorder: (4) Intracranial epidural hematoma: (5) Acute cystitis: QUALIFIERS: Hematuria presence: without hematuria Qualified Code(s): N30.00 - Acute cystitis without hematuria (6) Paroxysmal atrial fibrillation: (7) Anticoagulant long-term use: (8) Bradycardia, sinus: (9) long-term current use of amiodarone: (10) High cholesterol: (11) HTN (hypertension): QUALIFIERS: Hypertension type: primary hypertension Qualified Code(s): I10 - Essential (primary) hypertension (12) Carotid artery bruit: QUALIFIERS: Laterality: bilateral Qualified Code(s): R09.89 - Other specified symptoms and signs involving the circulatory and respiratory systems (13) Mild aortic stenosis: (14) Grade II diastolic dysfunction: (15) Chronic anemia: (16) Hypo-osmolality and hyponatremia: (17) Presbycusis: QUALIFIERS: Laterality: bilateral Qualified Code(s): 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 Continue therapy 2. Lasix 40 mg p.o. today 3. Continue 1000 cc/day fluid restriction. 4. Discontinue lisinopril and continue hydralazine for blood pressure control. 5. Recheck a BMP on Tuesday. 6. Senna added to the current drug regimen. 7. Consider starting something for anxeity after the sodium is 130 or >. she is calmer today andmay not need anything after she is here for a few more days. Charges/Coding Visit Charges Inpatient E&M: 61366 Subs Hosp L1 11/16/241911 Jo-Ann Arias DO Cosigner Signature (if applicable): CC: ~ Signed [facility]06-12-2025 Progress note Author Jo-Ann Arias [facility] Note Date/Time November 15, 2024 6:[address] [facility] Medical Records Department [address] [place] [address] Progress Note 11/15/24 1124 MR#: [id number] Acct: [id number] Name: SARAH MCGUIRE Rep #:[id number] : 1945 78 From: Jo-Ann Arias DO PCP: Dr. Monika Venegas MD Status:ADM IN Location: [place] [address] Subjective Subjective Sarah was seen on team rounds today. Her daughter Maribell was present in the room for rounds. All questions were answered to their satisfaction. Afebrile VSS - BP's are not adequately controlled.....even with increasing the dose of the Lisinopril to 10 mg daily while at [facility]. Heart rate has ranged from 56-89 over the past 24 hours. She was taken off her beta-bright while at [facility] due to bradycardia. Maintaining appropriate oxygen saturation on RA Oral intake - FOOD good FLUIDS good but she has to be reminded to drink. Discussed with nursing - no problems that need addressed Reviewed the THERAPY notes Medication list reviewed. sodium is 124 today, down from 127 at admission. she is mildly hypotonic (271)and the urine sodium is > 40 (89) with a urine osmo > 100 (591) TSH is normal Objective Data Objective Data Vital Signs: Vital Signs Temp Pulse Resp BP Pulse Ox O2 Del Method 98 F 66 16 175/80 H 96 Room Air 11/15/24 06:00 11/15/24 06:00 11/15/24 06:00 11/15/24 06:00 11/15/24 06:00 11/15/24 06:00 Oxygen Delivery Method Room Air Weight: 105 lb 6.095 oz Body Mass Index (BMI) 24.5 Intake & Output: Intake and Output for Last 24 Hours 11/13/24 11/14/24 11/15/24 23:59 23:59 23:59 Intake Total 834 / 834 1120 / 1120 560 / 560 Output Total 850 / 1050 1270 / 1270 450 / 450 Balance -16 / -216 -150 / -150 110 / 110 Lab / Micro Data 11/13/24 06:37 11/15/24 05:33 Labs: Laboratory Results - last 24 hr 11/15/24 05:33: Sodium 124 L, Potassium 4.7, Chloride 92 L, Carbon Dioxide 22.8,Anion Gap 10, BUN 17, Creatinine 0.91, Estim Creat Clear Calc 35.42 L, Est GFR (MDRD) Non-Af 64, BUN/Creatinine Ratio 18.3, Glucose 97, Calcium 9.1 Physical Exam Const alert, oriented x3 and no apparent distress Constitutional Narrative: Sitting in bed when I examined her. General Appearance: cooperative and well kempt HEENT General Ear: other Other Details: Hard of hearing and need to repeat things whenspeaking with her. Resp normal respiratory effort, normal air movement and clear to auscultation bilaterally Effort and Inspection: able to speak in complete sentences Cardio regular rate, regular rhythm, no rub and no gallops Cardio Narrative: No ectopy. She has a 3/6 PATY at the second RICS with radiation to the LVOT, LLSB, apex, carotids and into the left axilla. No diastolic MM appreciated. GI normal to inspection, nondistended, normoactive bowel sounds, soft to palpation and non-tender GI Narrative: No guarding with palpation. Extremity no calf tenderness and no pedal edema Extremity Narrative: No clubbing and no cyanosis. 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 Continue therapy 2. Continue 1000 cc daily fluid restriction 3. Increase salt tablets to 1 g p.o. 3 times daily 4. Hold lisinopril and start hydralazine 25 mg 3 times daily 5. Lasix 20 mg p.o. today 6. Recheck BMP in the a.m. and a cortisol. TSH is normal. 7. If no improvement in the sodium tomorrow will need to consult Nephrology. 8. Hyponatremia is a SE of Kera Charges/Coding Visit Charges Inpatient E&M: 77380 Subs Hosp L2 11/15/241811 <Electronically signed by Jo-Ann Arias DO> Jo-Ann Arias DO Cosigner Signature (if applicable): CC: ~ Signed [facility] Work Phone: 1([phone]) 576-435806-12-2025 Progress note [facility] Medical Records Department [address] [place] [address] Progress Note 11/15/24 1124 MR#: [id number] Acct: [id number] Name: SARAH MCGUIRE Rep #:[id number] : 1945 78 From: Jo-Ann Arias DO PCP: Dr. Monika Venegas MD Status:ADM IN Location: [place] [address] Subjective Subjective Sarah was seen on team rounds today. Her daughter Maribell was present in the room for rounds. All questions were answered to their satisfaction. Afebrile VSS - BP's are not adequately controlled.....even with increasing the dose of the Lisinopril to 10 mg daily while at [facility]. Heart rate has ranged from 56-89 over the past 24 hours. She was taken off her beta-bright while at [facility] due to bradycardia. Maintaining appropriate oxygen saturation on RA Oral intake - FOOD good FLUIDS good but she has to be reminded to drink. Discussed with nursing - no problems that need addressed Reviewed the THERAPY notes Medication list reviewed. sodium is 124 today, down from 127 at admission. she is mildly hypotonic (271)and the urine sodium is > 40 (89) with a urine osmo > 100 (591) TSH is normal Objective Data Objective Data Vital Signs: Vital Signs Temp Pulse Resp BP Pulse Ox O2 Del Method 98 F 66 16 175/80 H 96 Room Air 11/15/24 06:00 06/12/25 06:00 11/15/24 06:00 11/15/24 06:00 11/15/24 06:00 11/15/24 06:00 Oxygen Delivery Method Room Air Weight: 105 lb 6.095 oz Body Mass Index (BMI) 24.5 Intake & Output: Intake and Output for Last 24 Hours 11/13/24 11/14/24 11/15/24 23:59 23:59 23:59 Intake Total 834 / 834 1120 / 1120 560 / 560 Output Total 850 / 1050 1270 / 1270 450 / 450 Balance -16 / -216 -150 / -150 110 / 110 Lab / Micro Data 11/13/24 06:37 11/15/24 05:33 Labs: Laboratory Results - last 24 hr 11/15/24 05:33: Sodium 124 L, Potassium 4.7, Chloride 92 L, Carbon Dioxide 22.8,Anion Gap 10, BUN 17, Creatinine 0.91, Estim Creat Clear Calc 35.42 L, Est GFR (MDRD) Non-Af 64, BUN/Creatinine Ratio 18.3, Glucose 97, Calcium 9.1 Physical Exam Const alert, oriented x3 and no apparent distress Constitutional Narrative: Sitting in bed when I examined her. General Appearance: cooperative and well kempt HEENT General Ear: other Other Details: Hard of hearing and need to repeat things whenspeaking with her. Resp normal respiratory effort, normal air movement and clear to auscultation bilaterally Effort and Inspection: able to speak in complete sentences Cardio regular rate, regular rhythm, no rub and no gallops Cardio Narrative: No ectopy. She has a 3/6 PATY at the second RICS with radiation to the LVOT, LLSB, apex, carotids and into the left axilla. No diastolic MM appreciated. GI normal to inspection, nondistended, normoactive bowel sounds, soft to palpation and non-tender GI Narrative: No guarding with palpation. Extremity no calf tenderness and no pedal edema Extremity Narrative: No clubbing and no cyanosis. Skin no jaundice Rashes: no rashes Assessment & Plan Assessment/Plan (1) Physical debility: (2) Generalized muscle weakness: (3) Seizure disorder: (4) Intracranial epidural hematoma: (5) Acute cystitis: QUALIFIERS: Hematuria presence: without hematuria Qualified Code(s): N30.00 - Acute cystitis without hematuria (6) Paroxysmal atrial fibrillation: (7) Anticoagulant long-term use: (8) Bradycardia, sinus: (9) long-term current use of amiodarone: (10) High cholesterol: (11) HTN (hypertension): QUALIFIERS: Hypertension type: primary hypertension Qualified Code(s): I10 - Essential (primary) hypertension (12) Carotid artery bruit: QUALIFIERS: Laterality: bilateral Qualified Code(s): R09.89 - Other specified symptoms and signs involving the circulatory and respiratory systems (13) Mild aortic stenosis: (14) Grade II diastolic dysfunction: (15) Chronic anemia: (16) Hypo-osmolality and hyponatremia: (17) Presbycusis: PLAN: Plan 1. Continue therapy 2. Continue 1000 cc daily fluid restriction 3. Increase salt tablets to 1 g p.o. 3 times daily 4. Hold lisinopril and start hydralazine 25 mg 3 times daily 5. Lasix 20 mg p.o. today 6. Recheck BMP in the a.m. and a cortisol. TSH is normal. 7. If no improvement in the sodium tomorrow will need to consult Nephrology. 8. Hyponatremia is a SE of Kera Charges/Coding Visit Charges Inpatient E&M: 29790 [facility] Hosp L2 11/15/24 1812 Jo-Ann Arias DO Cosigner Signature (if applicable): CC: ~ Signed [facility]06-10-2025 History and physical note Author Jo-Ann [facility] Note Date/Time November 13, 2024 2:53 pm [facility] Medical Records Department [address] [place] [address] Post Admission Physician Eval 11/13/24 1200 MR#: [id number] Acct: [id number] Name: SARAH MCGUIRE Rep #:[id number] : 1945 78 From: Jo-Ann Arias DO PCP: Dr. Monika Venegas MD Status:ADM IN Location: [place] [address] Admission Information Primary Diagnosis:: Debility/generalized weakness/recent diagnosis of seizures Status Changes from Prescreening?: No changes Identified Actual Problem List:: UTI (She is on Cefdinir......no documentation from previous hospital for why she is on and antibiotic. ), Falls, Mobility Impaired,Self Care Deficit, BP, Hypertension and Alteration-Leisure Activ. Risk of Complications DVT: TORSTEN Hose and Sequential Compression Device Bleeding: Monitor Lab Values, Nursing to Teach [...] Skin integrity and Medication Management Patient needs Personnel Counselor/ Case Management for: Discharge Planning, Arranging Home Equipment or Services and Family Interventions Patient needs Dietary and Nutrition Services for: Adequate Nutrition, Nutritional Supplements and Nutritional Education Goals Goals Patient will remain: free from falls Patient will perform eating at: MOD I level of assist. Patient will perform bed mobility at: MOD I level of assist. Patient will complete transfers from bed to chair at: MOD I level of assist. Patient will ambulate: - (165 feet with a rollator walker at standby assist on various surfaces) Patient will complete upper body dressing at: - (Supervision) Patient will complete lower body dressing at: - (Supervision with adaptive equipment as needed for increased independence with self-care) Patient will complete toilet transfer at: - (Supervision) Patient will complete toileting at: - (Supervision) Patient will perform bathing at: - (She will complete upper body bathing at supervision and lower body bathing at supervision with adaptive equipment as needed.) Patient will perform Tub/Shower transfer at: - (Supervision) Patient will complete grooming at: - (Supervision while standing at the sink) Patient will complete home management skills at: - (Supervision) Patient will achieve: - (4 steps with 2 handrails at standby assist to allow access to her home) Patient will have pain level of: of 3 or less Patient's skin will: remain intact Discharge Planning Pt Prognosis for Sig. Practical Improv. w/in Reasonable Time: Good Estimated Length of stay (days): 28 Anticipated D/C Destination: Home w/ family or friends Was Preadmission Assessment Accurate?: Yes 11/13/24 4057 <Electronically signed by Jo-Ann Arias DO> Cosigner Signature (if applicable): CC: ~ Signed [facility] Work Phone: 1(356) 754-277106-10-2025 History and physical note Author Jo-Ann Arias [facility] Note Date/Time November 13, 2024 2:[address] [facility] Medical Records Department [address] [place], [place] [address] [address] History & Physical Exam 11/13/24 1050 MR#: [id number] Acct: [id number] Name: SARAH MCGUIRE Rep #:[id number] : 1945 78 From: Jo-Ann Arias DO PCP: Dr. Monika Venegas MD Status:ADM IN Location: [id number] HPI - General General Date of Admission: 11/12/24 Date of Service: 11/13/24 HPI Narrative SARAH MCGUIRE, is a 78 YO F with a PMH of paroxysmal atrial fibrillation, hypertension, hyperlipidemia, CVA (following resection of meningioma in December of 2022), chronic hyponatremia, large meningioma resected at [facility] by Dr. 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 Noncontrast brain CT showed a moderate-sized mixed density left subdural fluid collection concerning for bleeding. Shewas transferred to [facility] ED for possible subdural hematoma. She was given Kcentrain the ED prior to transfer to reverse the Apixaban. MRI of the brain, MRA brain and MRA neck showed no evidence of a new CVA. Neurology evaluated the patient and felt her history was highly suggestive of seizures although no epileptic discharges were captured on EEG. She had continuous left hemisphericpolymorphic theta slow-wave activity indicative of a structural lesion over the left hemisphere and this is the area where she had the craniotomy in 2022. She was started on Keppra 1000 mg p.o. twice daily. Neurosurgery was consulted for the extradural fluid collection and recommended holding anticoagulation for at least 2 weeks since she could have a subacute on chronic extradural fluid collection related to a fall she had approximately 1 month prior to presenting to the emergency department at [facility].. Coreg was held for bradycardia but, amiodarone was continued. Blood pressures were high so lisinopril was increased to 10 mg daily. Doxazosin, HCTZ and spironolactone were discontinued. Serum osmolality was low at [facility] but, I could not find a urineosmolality or urine sodium in my review of the chart. Speech was back to baseline at the time of DC from [facility]. She was seen by PT/OT/ST at [facility] and acute rehab was recommended at [place]. She was transferred to the acute inpt rehab unit at [facility] on 11/12/24 for 3 hours of therapy daily to restore function/independence at or near her level prior to recent events. Since her craniotomy in 2022 she requires assistance from family for many ADL's. All lab drawn this AM was personally reviewed. White blood cell count is normalat 7. Hemoglobin is mildly decreased at 11.1 which is stable from a CBC done inApril 2024. Platelets are within normal limits. MCV is normal. RDW is very mildly increased at 44.3. Sodium is low at 127 and the potassium is 4.7. Sodium has been low since December 2022. Chloride is low at 95. BUN is 20 with a creatinine of 0.89 which is stable from creatinine on 09/27/2024. GFR is 66 which is consistent with stage II chronic renal failure. Calcium and phosphorusare normal. Magnesium is 2.0. Bilirubin and alkaline phosphatase are within normal limits however AST and ALT are mildly elevated at 57 and 82 respectively. Blood pressure since arrival on rehab has ranged from 115/36 to 170/44. Heart rate has ranged from 54-66. Postvoid residuals x 3 are all less than 100. [facility] Medical History (Updated 11/13/24 @ 14:[address] Jo-Ann Arias, ) Presbycusis History of rheumatic fever as a child Grade II diastolic dysfunction Ischemic cerebrovascular accident (CVA) Intracranial epidural hematoma Cerebrovascular disease Mitral stenosis Pulmonary hypertension Stroke/cerebrovascular [...] 200 mg tablet 200 mg PO DAILY heart #90 TA BLETS 12/12/23 11/12/24 08:30 Rx atorvastatin 10 mg tablet 10 mg PO QHS for cholesterol #90 12/12/23 11/11/24 21:08 Rx TABLETS apixaban 2.5 mg tablet 2.5 mg PO BID called to Disc ount 08/13/24 09/27/24 Rx [facility] tabs acetaminophen 325 mg capsule 325 mg PO Q4H PRN pain 11/12/24 13:15 History cefdinir 300 mg capsule 300 mg PO BID UTI 11/12/24 U nknown History levetiracetam 1,000 mg tablet 1,000 mg PO BID Seizures 11/12/24 11/12/24 08:30 History (Keppra) lisinopril 10 mg tablet 10 mg PO DAILY BP 11/12/24 U nknown History magnesium chloride 64 mg PO QHS Supplement 02/28 Unknown History Allergy/AdvReac Type Severity Reaction Status Date / Time No Known Allergies Allergy Verified 11/07/24 11:15 Family History Father CVA (cerebral vascular accident) Heart disease Mother Diabetes Surgical History (Updated 11/13/24 @ 14:[address] Jo-Ann Arias DO) H/O craniotomy Status post hemorrhoidectomy (~08/19/20) S/P carpal tunnel release S/P bilateral breast reduction S/P hysterectomy Social History (Updated 11/13/24 @ 14:[address] Jo-Ann Arias DO) household members: children and other details: BRADY Upton lives with her. housing: house current occupational status: retired Smoking Status: Never smoker alcohol intake: never ROS Review of Systems ROS Unobtainable: Denies due to mental status Constitutional Constitutional: Reports fatigue and weakness; Denies anorexia, change in weight,chills, fever(s) or night sweats Eyes Eyes: Denies blurry vision, change in vision, eye pain or loss of vision ENT HEENT: Reports abnormal hearing and hearing loss; Denies dizziness, dysphagia, headache(s), mouth pain, nasal congestion or sore throat Cardiovascular Cardiovascular: Denies chest pain, dyspnea on exertion, edema, lightheadedness, orthopnea, palpitations, paroxysmal nocturnal dyspnea or syncope Respiratory/Chest Respiratory/Chest: Denies cough, dyspnea, shortness of breath at rest, shortnessof breath with exertion or wheezing Gastrointestinal Gastrointestinal: Denies abdominal pain, constipation, diarrhea, dyspepsia, hematemesis, hematochezia, nausea or vomiting Genitourinary Genitourinary: Reports other Details: [facility] ; Denies dysuria, hematuria, nocturia, urinary frequency, urinary hesitancy, urinary incontinence or urinary urgency Musculoskeletal Musculoskeletal: Denies back pain, joint pain, joint swelling or neck pain Integumentary Integumentary: Reports alopecia and dry skin; Denies jaundice, pruritus or rash Neurologic Neurologic: Reports confusion, headache(s) and other Details: scored 41/50 on BCAT but, having some issues with memory. Unclear from her hx if she has frequent falls at home or not. ; Denies disequilibrium, dizziness, focal weakness, paresthesias, radicular pain, restless legs, seizures, syncope or tremor(s) Psychiatric Psychiatric: Reports memory loss; Denies anxiety, depression, homicidal ideation, hopelessness, suicidal ideation or visual hallucinations Endocrine Endocrinology: Denies change in body appearance, polydipsia or polyuria Hematologic/Lymphatic Hematologic/Lymphatic: Reports easy bleeding and easy bruising; Denies lymphadenopathy Allergic/Immunologic Allergic/Immunologic: Denies rhinitis, eczemia or asthma Vital Signs Vital Signs Vital Signs: 11/12/24 18:45 11/12/24 21:06 11/12/24 21:27 Temperature 98.9 F 99.3 F H Temperature Source Temporal Temporal Pulse Rate 57 L 66 54 L Respiratory Rate 16 18 Respiratory Effort Normal Non-Labored Respiratory Depth Normal Respiratory Pattern Normal Blood Pressure 120/43 L 115/36 L Blood Pressure Mean 68 62 Blood Pressure Source Monitor Monitor Blood Pressure Position Semi-Fowlers Semi-Fowlers Blood Pressure Location Left Arm Left Arm Pulse Ox 97 95 Oxygen Delivery Method Room Air Room Air Room Air 11/13/24 05:30 Temperature 98.7 F Temperature Source Temporal Pulse Rate 59 L Respiratory Rate 17 Respiratory Effort Respiratory Depth Respiratory Pattern Blood Pressure 170/44 H Blood Pressure Mean 86 Blood Pressure Source Monitor Blood Pressure Position Semi-Fowlers Blood Pressure Location Left Arm Pulse Ox 98 Oxygen Delivery Method Room Air Weight Weight: 105 lb 6.095 oz Body Mass Index (BMI) 24.5 Physical Exam Const alert, oriented x3 and no apparent distress Constitutional Narrative: Sitting in bed when I examined her. General Appearance: cooperative and well kempt; Negative for anxious HEENT head/scalp atraumatic HEENT Narrative: She has localized alopecia of L frontal temporal area from previous craniotomy. She also has some age related hair loss in other areas of the scalp. No bruising of the scalp noted. No hematomas. Told me she fell to the floor about1 month ago but, she did not hit her head and she did not lose consciousness......her legs just gave out. Very slight asymmetry of the smile.........less teeth on the Left side when smiling. No pain with palpation of the skull. Mucous membranes are moist. No evidence of thrush. General Ear: other Other Details: Hard of hearing and need to repeat things whenspeaking with her. Eyes PERRL, EOMs intact bilaterally, conjunctivae normal and no scleral icterus Eyes Narrative: No discharge from the eyes. General Eye: normal appearance of both eyes Neck Neck Narrative: She has loud bruits in both carotids....whether these are bruits or radiation ofthe MM I can not tell. MRA of the neck recently did not mention any significant carotid stenosis General: trachea midline Chest Chest: symmetrical chest wall rise Resp normal respiratory effort, normal air movement and clear to auscultation bilaterally Effort and Inspection: able to speak in complete sentences Cardio regular rate, regular rhythm, no rub and no gallops Cardio Narrative: No ectopy. She has a 3/6 PATY at the second RICS with radiation to the LVOT, LLSB, apex, carotids and into the left axilla. No diastolic MM appreciated. GI normal to inspection, nondistended, normoactive bowel sounds, soft to palpation and non-tender GI Narrative: No guarding with palpation. no CVA tenderness Narrative: No suprapubic tenderness. Extremity no calf tenderness and no pedal edema Extremity Narrative: No clubbing and no cyanosis. Skin no jaundice Rashes: no rashes Hair: general thinning and scarring alopecia Neuro oriented x3, moves all extremities, no focal motor deficits and no sensory deficits noted Neuro Narrative: Shuffling gait per PT. I did not ambulate her. No resting tremors. No bradykinesia. No masked facies. No significant rigidity. Having a little trouble with short term memory. Able to follow simple commands with no problem. Talkative and engaged. Psych thought process normal, cooperative, affect normal, denies hallucinations and denies suicidal ideation Appearance: grossly normal, appropriate and well kempt Attitude: calm and engaged Activity / Motor Behavior: appropriate eye contact Mood & Affect: euthymic mood Results Lab / Micro Data 11/13/24 06:37 11/13/24 06:37 Labs: Laboratory Results - last 24 hr 11/13/24 06:37: WBC 7.0, RBC 3.33 L, Hgb 11.1 L, Hct 30.8 L, MCV 92.5, MCH 33.3 H, MCHC 36.0, RDW Std Deviation 44.3 H, RDW Coeff of Marga 13.2, Plt Count 204, MPV 10.1, Sodium 127 L, Potassium 4.7, Chloride 95 L, Carbon Dioxide 22.0, AnionGap 10, BUN 20 H, Creatinine 0.89, Estim Creat Clear Calc 36.21 L, Est GFR (MDRD) Non-Af 66, BUN/Creatinine Ratio 22.2 H, Glucose 95, Calcium 9.4, Phosphorus 3.9, Magnesium 2.0, Total Bilirubin 0.71, AST 57 H, ALT 82 H, Alkaline Phosphatase 81, Total Protein 6.1, Albumin 3.9, Globulin 2.2, Albumin/Globulin Ratio 1.8 Assessment & Plan Assessment/Plan (1) Physical debility: (2) Generalized muscle weakness: (3) Seizure disorder: (4) Intracranial epidural hematoma: (5) Acute cystitis: QUALIFIERS: Hematuria presence: without hematuria Qualified Code(s): N30.00 - Acute cystitis without hematuria (6) Paroxysmal atrial fibrillation: (7) Anticoagulant long-term use: (8) Bradycardia, sinus: PLAN: On amiodarone. Coreg was DC'd at [facility] for bradycardia. TSH is normal. 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 (11) HTN (hypertension): QUALIFIERS: Hypertension type: primary hypertension Qualified Code(s): I10 - Essential (primary) hypertension PLAN: Continue lisinopril for now. Dose recently increased to 10 mg from 2.5 mg. Hyponatremia got worse......may need to DC and use another agent to controlBP.......Norvasc, procardia or Hydralazine since they do not cause bradycardia. (12) Carotid artery bruit: QUALIFIERS: Laterality: bilateral Qualified Code(s): R09.89 - Other specified symptoms and signs involving the circulatory and respiratory systems PLAN: due to carotid stenosis or to radiation of MM? MRA of the neck at [facility] showed no significant stenosis in the carotids or posterior neck. (13) Mild aortic stenosis: PLAN: Rheumatic (14) Grade II diastolic dysfunction: PLAN: With preserved EF. (15) Chronic anemia: PLAN: Normocytic (16) Hypo-osmolality and hyponatremia: PLAN: Suspect possible SIADH........ serum osmolality, urine osmolality and urine sodium ordered. Serum osmolality is low at 271 and the other tests are still pending. (17) Presbycusis: PLAN: Plan PLAN PT for gait stability OT for ADL's ST for evaluation Analgesics as needed Bowel protocol Fall precautions Assess for Anxiety/Depression GI prophylaxis -not necessary at this time. She denies nausea/vomiting/epigastric pain/heartburn. DVT prophylaxis with SCDs and TORSTEN bowen Follow up with PCP, neurology, cardiology following DC from [facility] AM lab including CMP, CBC, Mag and Phos Serum osmolality, urine osmolality and urine sodium Check a TSH No diuretics Request results of UA and/or urine culture from [facility]......none of the documentation we received tells me why she is on Cefdinir? Lisinopril can cause hyponatremia and the dose was increased to 10 mg while at [facility]. Last saw cardiology in January 2024. Last echocardiogram at [facility] was in 2021. It showed an ejection fraction of 60% with stage I diastolic dysfunction, mild left atrial enlargement, mild mitral regurgitation and a PA systolic estimated at 36. She had an echocardiogram at [facility] when she had her craniotomy and the EF was 65 to 70%. The atria were of normal size. There was no [id number] shunt. She had mild to moderate mitral stenosis with no regurgitation with an estimated right ventricular systolic pressure of 48 consistent with moderate pulmonary hypertension. ECHO this admission to [facility] showed a normal left ventricular ejection fraction of55 to 60% with no wall motion abnormalities. There was grade 2 diastolic dysfunction. There was normal right ventricular size with normal systolic function. There were mildly calcified aortic valve leaflets with mild aortic stenosis as well as mild to moderate central aortic regurgitation. The right ventricular systolic pressure was estimated at 25. There was trace of mitral regurgitation but no mitral stenosis. Will need to discuss with Alexsandra what patient was able to do at home by herself without assistance. She may just be de-conditioned because Alexsandra helps her with everything. Charges/Coding Visit Charges Inpatient E&M: 36310 Init Hosp L2 11/13/24 1448 <Electronically signed by Jo-Ann Arias DO> Cosigner Signature (if applicable): CC: Dr. Monika Venegas MD; Dr. Jo-Ann Arias DO; MAGALY Davis~ Signed [facility] Work Phone: [phone]) 471-763406-10-2025 History and physical note [facility] Medical Records Department [address] [place] [id number] Post Admission Physician Eval 11/13/24 1200 MR#: [id number] Acct: [id number] Name: SARAH MCGUIRE Rep #:[id number] : 1945 78 From: Jo-Ann Arias DO PCP: Dr. Monika Venegas MD Status:ADM IN Location: [place] [address] Admission Information Primary Diagnosis:: Debility/generalized weakness/recent diagnosis of seizures Status Changes from Prescreening?: No changes Identified Actual Problem List:: UTI (She is on Cefdinir......no documentation from previous hospital for why she is on and antibiotic. ), Falls, Mobility Impaired,Self Care Deficit, BP, Hypertension and Alteration-Leisure Activ. Risk of Complications DVT: TORSTEN Hose and Sequential Compression Device Bleeding: Monitor Lab Values, Nursing to Teach Precautions for anti-coagulation therapy., Wound, ifapplicable, to be assessed every shift. and Stroke [...] Precautions and Patient will be placedon Fall Precautionsas indicated per protocol. Skin Breakdown: Nursing will [...] DVT prophylaxis, Rehabilitation Leadership and Coordination of treat ment team Patient needs Physical Therapy: For a [...] Skin integrity and Medication Management Patient needs Personnel Counselor/ Case Management for: Discharge Planning, Arranging Home Equipment orServices and Family Interventions Patient needs Dietary and Nutrition Services for: Adequate Nutrition, Nutritional Supplements and Nutritional Education Goals Goals Patient will remain: free from falls Patient will perform eating at: MOD I level of assist. Patient will perform bed mobility at: MOD I level of assist. Patient will complete transfers from bed to chair at: MOD I level of assist. Patient will ambulate: - (165 feet with a rollator walker at standby assist on various surfaces) Patient will complete upper body dressing at: - (Supervision) Patient will complete lower body dressing at: - (Supervision with adaptive equipment as needed for increased independence with self-care) Patient will complete toilet transfer at: - (Supervision) Patient will complete toileting at: - (Supervision) Patient will perform bathing at: - (She will complete upper body bathing at supervision and lower body bathing at supervision with adaptive equipment as needed.) Patient will perform Tub/Shower transfer at: - (Supervision) Patient will complete grooming at: - (Supervision while standing at the sink) Patient will complete home management skills at: - (Supervision) Patient will achieve: - (4 steps with 2 handrails at standby assist to allow access to her home) Patient will have pain level of: of 3 or less Patient's skin will: remain intact Discharge Planning Pt Prognosis for Sig. Practical Improv. w/in Reasonable Time: Good Estimated Length of stay (days): 28 Anticipated D/C Destination: Home w/ family or friends Was Preadmission Assessment Accurate?: Yes 11/13/24 3493 Cosigner Signature (if applicable): CC: ~ Signed [facility]06-10-2025 History and physical note [facility] Medical Records Department [address] [place] [address] History & Physical Exam 11/13/24 1050 MR#: [id number] Acct: [id number] Name: SARAH MCGUIRE Rep #:[id number] : 1945 78 From: Jo-Ann Arias DO PCP: Dr. Monika Venegas MD Status:ADM IN Location: [id number] [facility] - General General Date of Admission: 11/12/24 Date of Service: 11/13/24 HPI Narrative SARAH MCGUIRE, is a 78 YO F with a PMH of paroxysmal atrial fibrillation, hypertension, hyperlipidemia,CVA (following resection of meningioma in December of 2022), chronic hyponatremia, large meningioma resected at [facility] by Dr. 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 Noncontrast brain CT showed a moderate-sized mixed density left subdural fluid collection concerning for bleeding. [facility]was [facility] for possible [facility] hematoma. She was given Kcentrain the ED prior to transfer to reverse the Apixaban. MRIof the brain, MRA brain and MRA neck showed no evidence of a new CVA. Neurology evaluated the patient and felt her history was highly suggestive of seizures although no epileptic discharges were captured on EEG. She had continuous left hemisphericpolymorphic theta slow-wave activity indicative of astructural lesion over the left hemisphere and this is the area where she had the craniotomy in 2022. She was started on Keppra 1000 mg p.o. twice daily. Neurosurgery was consulted for the extraduralfluid collection and recommended holding anticoagulation for at least 2 weeks since she could have a subacute on chronic extradural fluid collection related to a fall she had approximately 1 month prior to presenting to the emergency department at [facility].. Coreg was held for santosh ycardia but, amiodarone was continued. Blood pressures were high so lisinopril was increased to 10 mg daily. Doxazosin, HCTZ and spironolactone were discontinued. Serum osmolality was low at [facility] but,I could not find a urineosmolality or urine sodium in my review of the chart. Speech was back to baseline at the time of DC from [facility]. She was seen by PT/OT/ST at [facility] and acute rehab was recommended at DC. She was transferred to the acute inpt rehab unit at [facility] on 11/12/24 for 3 hours of therapy dailyto restore function/independence at or near her level prior to recent events. Since her craniotomy in 2022 she requires assistance from family for many ADL's. All lab drawn this AM was personally reviewed. White blood cell count is normalat 7. Hemoglobin is mildly decreased at 11.1 which is stable from a CBC done inApril 2024. Platelets are within normal limits. MCV is normal. RDW is very mildly increased at 44.3. Sodium is low at 127 and the potassium is 4.7. Sodium has been low since December 2022. Chloride is low at 95. BUN is 20 with a creatinine of 0.89 which is stable from creatinine on 09/27/2024. GFR is 66 which is consistent with stage II chronicrenal failure. Calcium and phosphorusare normal. Magnesium is 2.0. Bilirubin and alkaline phosphatase are within normal limits however AST and ALT are mildly elevated at 57 and 82 respectively. Blood pressure since arrival on rehab has ranged from 115/36 to 170/44. Heart rate has ranged from 54-66. Postvoid residuals x 3 are all less than 100. [facility] Medical History (Updated 11/13/24 @ 14:[address] Jo-Ann Arias, DO) Presbycusis History of rheumatic fever as a child Grade II diastolic dysfunction Ischemic cerebrovascular accident (CVA) Intracranial epidural hematoma Cerebrovascular disease Mitral stenosis Pulmonary hypertension Stroke/cerebrovascular [...] 200 mg tablet 200 mg PO DAILY heart #90 TA BLETS 12/12/23 11/12/24 08:30 Rx atorvastatin 10 mg tablet 10 mg PO QHS for cholesterol #90 12/12/23 11/11/24 21:08 Rx TABLETS apixaban 2.5 mg tablet 2.5 mg PO BID called to [facility] 08/13/24 09/27/24 Rx [facility] tabs acetaminophen 325 mg capsule 325 mg PO Q4H PRN pain 11/12/24 13:15 History cefdinir 300 mg capsule 300 mg PO BID UTI 11/12/24 U nknown History levetiracetam 1,000 mg tablet 1,000 mg PO BID Seizures 11/12/24 11/12/24 08:30 History (Jaci) lisinopril 10 mg tablet 10 mg PO DAILY BP 11/12/24 U nknown History magnesium chloride 64 mg PO QHS Supplement 02/28 Unknown History Allergy/AdvReac Type Severity Reaction Status Date / Time No Known Allergies Allergy Verified 11/07/24 11:15 Family History Father CVA (cerebral vascular accident) Heart disease Mother Diabetes Surgical History (Updated 11/13/24 @ 14:[address] Jo-Ann Arias DO) H/O craniotomy Status post hemorrhoidectomy (~08/19/20) S/P carpal tunnel release S/P bilateral breast reduction S/P hysterectomy Social History (Updated 11/13/24 @ 14:[address] Jo-Ann Arias DO) household members: children and other details: BRADY Upton lives with her. housing: house current occupational status: retired Smoking Status: Never smoker alcohol intake: never ROS Review of Systems ROS Unobtainable: Denies due to mental status Constitutional Constitutional: Reports fatigue and weakness; Denies anorexia, change in weight,chills, fever(s) ornight sweats Eyes Eyes: Denies blurry vision, change in vision, eye pain or loss of vision ENT HEENT: Reports abnormal hearing and hearing loss; Denies dizziness, dysphagia, headache(s), mouth pain, nasal congestion or sore throat Cardiovascular Cardiovascular: Denies chest pain, dyspnea on exertion, edema, lightheadedness, orthopnea, palpitations, paroxysmal nocturnal dyspnea or syncope Respiratory/Chest Respiratory/Chest: Denies cough, dyspnea, shortness of breath at rest, shortnessof breath with exertion or wheezing Gastrointestinal Gastrointestinal: Denies abdominal pain, constipation, diarrhea, dyspepsia, hematemesis, hematochezia, nausea or vomiting Genitourinary Genitourinary: Reports other Details: Being treated for a UTI at presentation torehab with Cefdinir; Denies dysuria, hematuria, nocturia, urinary frequency, urinary hesitancy, urinary incontinence or urinary urgency Musculoskeletal Musculoskeletal: Denies back pain, joint pain, joint swelling or neck pain Integumentary Integumentary: Reports alopecia and dry skin; Denies jaundice, pruritus or rash Neurologic Neurologic: Reports confusion, headache(s) and other Details: scored 41/50 on BCAT but, having someissues with memory. Unclear from her hx if she has frequent falls at home or not. ; Denies disequilibrium, dizziness, focal weakness, paresthesias, radicular pain, restless legs, seizures, syncope or tremor(s) Psychiatric Psychiatric: Reports memory loss; Denies anxiety, depression, homicidal ideation, hopelessness, suicidal ideation or visual hallucinations Endocrine Endocrinology: Denies change in body appearance, polydipsia or polyuria Hematologic/Lymphatic Hematologic/Lymphatic: Reports easy bleeding and easy bruising; Denies lymphadenopathy Allergic/Immunologic Allergic/Immunologic: Denies rhinitis, eczemia or asthma Vital Signs Vital Signs Vital Signs: 11/12/24 18:45 11/12/24 21:06 11/12/24 21:27 Temperature 98.9 F 99.3 F H Temperature Source Temporal Temporal Pulse Rate 57 L 66 54 L Respiratory Rate 16 18 Respiratory Effort Normal Non-Labored Respiratory Depth Normal Respiratory Pattern Normal Blood Pressure 120/43 L 115/36 L Blood Pressure Mean 68 62 Blood Pressure Source Monitor Monitor Blood Pressure Position Semi-Fowlers Semi-Fowlers Blood Pressure Location Left Arm Left Arm Pulse Ox 97 95 Oxygen Delivery Method Room Air Room Air Room Air 11/13/24 05:30 Temperature 98.7 F Temperature Source Temporal Pulse Rate 59 L Respiratory Rate 17 Respiratory Effort Respiratory Depth Respiratory Pattern Blood Pressure 170/44 H Blood Pressure Mean 86 Blood Pressure Source Monitor Blood Pressure Position Semi-Fowlers Blood Pressure Location Left Arm Pulse Ox 98 Oxygen Delivery Method Room Air Weight Weight: 105 lb 6.095 oz Body Mass Index (BMI) 24.5 Physical Exam Const alert, oriented x3 and no apparent distress Constitutional Narrative: Sitting in bed when I examined her. General Appearance: cooperative and well kempt; Negative for anxious HEENT head/scalp atraumatic HEENT Narrative: She has localized alopecia of L frontal temporal area from previous craniotomy. She also has some age related hair loss in other areas of the scalp. No bruising of the scalp noted. No hematomas. Toldme she fell to the floor about1 month ago but, she did not hit her head and she did not lose consciousness......her legs just gave out. Very slight asymmetry of the smile.........less teeth on the Left side when smiling. No pain with palpation of the skull. Mucous membranes are moist. No evidence of thrush. General Ear: other Other Details: Hard of hearing and need to repeat things whenspeaking with her. Eyes PERRL, EOMs intact bilaterally, conjunctivae normal and no scleral icterus Eyes Narrative: No discharge from the eyes. General Eye: normal appearance of both eyes Neck Neck Narrative: She has loud bruits in both carotids....whether these are bruits or radiation ofthe MM I can nottell. MRA of the neck recently did not mention any significant carotid stenosis General: trachea midline Chest Chest: symmetrical chest wall rise Resp normal respiratory effort, normal air movement and clear to auscultation bilaterally Effort and Inspection: able to speak in complete sentences Cardio regular rate, regular rhythm, no rub and no gallops Cardio Narrative: No ectopy. She has a 3/6 PATY at the second RICS with radiation to the LVOT, LLSB, apex, carotids and into the left axilla. No diastolic MM appreciated. GI normal to inspection, nondistended, normoactive bowel sounds, soft to palpation and non-tender GI Narrative: No guarding with palpation. no CVA tenderness Narrative: No suprapubic tenderness. Extremity no calf tenderness and no pedal edema Extremity Narrative: No clubbing and no cyanosis. Skin no jaundice Rashes: no rashes Hair: general thinning and scarring alopecia Neuro oriented x3, moves all extremities, no focal motor deficits and no sensory deficits noted Neuro Narrative: Shuffling gait per PT. I did not ambulate her. No resting tremors. No bradykinesia. No masked facies. No significant rigidity. Having a little trouble with short term memory. Able to follow simple commands with no problem. Talkative and engaged. Psych thought process normal, cooperative, affect normal, denies hallucinations and denies suicidal ideation Appearance: grossly normal, appropriate and well kempt Attitude: calm and engaged Activity / Motor Behavior: appropriate eye contact Mood & Affect: euthymic mood Results Lab / Micro Data 11/13/24 06:37 11/13/24 06:37 Labs: Laboratory Results - last 24 hr 11/13/24 06:37: WBC 7.0, RBC 3.33 L, Hgb 11.1 L, Hct 30.8 L, MCV 92.5, MCH 33.3 H, MCHC 36.0, RDW Std Deviation 44.3 H, RDW Coeff of Marga 13.2, Plt Count 204, MPV 10.1, Sodium 127 L, Potassium 4.7, Chloride 95 L, Carbon Dioxide 22.0, AnionGap 10, BUN 20 H, Creatinine 0.89, Estim Creat Clear Calc 36.21 L, Est GFR (MDRD) Non-Af 66, BUN/Creatinine Ratio 22.2 H, Glucose 95, Calcium 9.4, Phosphorus 3.9, Magnesium 2.0, Total Bilirubin 0.71, AST 57 H, ALT 82 H, Alkaline Phosphatase 81, Total Protein 6.1, Albumin 3.9, Globulin 2.2, Albumin/Globulin Ratio 1.8 Assessment & Plan Assessment/Plan (1) Physical debility: (2) Generalized muscle weakness: (3) Seizure disorder: (4) Intracranial epidural hematoma: (5) Acute cystitis: QUALIFIERS: Hematuria presence: without hematuria Qualified Code(s): N30.00 - Acute cystitis without hematuria (6) Paroxysmal atrial fibrillation: (7) Anticoagulant long-term use: (8) Bradycardia, sinus: PLAN: On amiodarone. Coreg was DC'd at [facility] for bradycardia. TSH is normal. 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 (11) HTN (hypertension): QUALIFIERS: Hypertension type: primary hypertension Qualified Code(s): I10 - Essential (primary) hypertension PLAN: Continue lisinopril for now. Dose recently increased to 10 mg from 2.5 mg. Hyponatremia got worse......may need to DC and use another agent to controlBP.......Norvasc, procardia or Hydralazine since they do not cause bradycardia. (12) Carotid artery bruit: QUALIFIERS: Laterality: bilateral Qualified Code(s): R09.89 - Other specified symptoms and signs involving the circulatory and respiratory systems PLAN: due to carotid stenosis or to radiation of MM? MRA of the neck at [facility] showed no significant stenosis in the carotids or posterior neck. (13) Mild aortic stenosis: PLAN: Rheumatic (14) Grade II diastolic dysfunction: PLAN: With preserved EF. (15) Chronic anemia: PLAN: Normocytic (16) Hypo-osmolality and hyponatremia: PLAN: Suspect possible SIADH........ serum osmolality, urine osmolality and urine sodium ordered. Serum osmolality is low at 271 and the other tests are still pending. (17) Presbycusis: PLAN: Plan PLAN PT for gait stability OT for ADL's ST for evaluation Analgesics as needed Bowel protocol Fall precautions Assess for Anxiety/Depression GI prophylaxis -not necessary at this time. She denies nausea/vomiting/epigastric pain/heartburn. DVT prophylaxis with SCDs and TORSTEN bowen Follow up with PCP, neurology, cardiology following DC from [facility] AM lab including CMP, CBC, Mag and Phos Serum osmolality, urine osmolality and urine sodium Check a TSH No diuretics Request results of UA and/or urine culture from [facility]......none of the documentation we received tells me why she is on Cefdinir? Lisinopril can cause hyponatremia and the dose was increased to 10 mg while at [facility]. Last saw cardiology in January 2024. Last echocardiogram at [facility] was in 2021. It showed an ejection fraction of 60% with stage I diastolic dysfunction, mild left atrial enlargement, mild mitral regurgitation and a PA systolic estimated at 36. She had an echocardiogram at [facility] when she had her craniotomy and the EF was 65 to 70%. The atria were of normal size. There was no wgqlw-jy-aiir shunt. She had mild to moderate mitral stenosis with no regurgitation with an estimated right ventricular systolic pressure of 48 consistent with moderatepulmonary hypertension. ECHO this admission to [facility] showed a normal left ventricular ejection fraction of55 to 60% with no wall motion abnormalities. There was grade 2 diastolic dysfunction. There was normal right ventricular size with normal systolic function. There were mildly calcified aortic valve leaflets with mild aortic stenosis as well as mild to moderate central aortic regurgitation. The right ventricular systolic pressure was estimated at 25. There was trace of mitral regurgitation but no mitral stenosis. Will need to discuss with Alexsandra what patient was able to do at home by herself without assistance.She may just be de-conditioned because Alexsandra helps her with everything. Charges/Coding Visit Charges Inpatient E&M: 04097 Init Hosp L2 11/13/24 5500 Cosigner Signature (if applicable): CC: Dr. Monika Venegas MD; Dr. Jo-Ann Arias DO; MAGALY Davis~ Signed [facility]06-10-2025 [facility] Medical Records Department [address] [place] [address] History Physical Exam 11/13/24 1050 MR#: [id number] Acct: [id number] Name: SARAH MCGUIRE Rep #: [id number] : 1945 78 From: Jo-Ann Arisa DO PCP: Dr. Monika Venegas MD Status:ADM IN [id number] General Date of Admission: 11/12/24 Date of Service: 11/13/24 HPI Narrative SARAH MCGUIRE, is a 78 YO F with a PMH of paroxysmal atrial fibrillation, hypertension, hyperlipidemia, CVA (following resection of meningioma in December of 2022), chronic hyponatremia, large meningioma resected at [facility] by Dr. 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 Noncontrast brain CT showed a moderate-sized mixed density left subdural fluid collection concerning for bleeding. She was transferred to [facility] ED for possible subdural hematoma. She was given Kcentra in the ED prior to transfer to reverse the Apixaban. MRI of the brain, MRA brain and MRA neck showed no evidence of a new CVA. Neurology evaluated the patient and felt her history was highly suggestive of seizures although no epileptic discharges were captured on EEG. She had continuous left hemispheric polymorphic theta slow-wave activity indicative of a structural lesion over the left hemisphere and this is the area where she had the craniotomy in 2022. She was started on Keppra 1000 mg p.o. twice daily. Neurosurgery was consulted for the extradural fluid collection and recommended holding anticoagulation for at least 2 weeks since she could have a subacute on chronic extradural fluid collection related to a fall she had approximately 1 month prior to presenting to the emergency department at [facility].. Coreg was held for bradycardia but, amiodarone was continued. Blood pressures were high so lisinopril was increased to 10 mg daily. Doxazosin, HCTZ and spironolactone were discontinued. Serum osmolality was low at [facility] but, I could not find a urine osmolality or urine sodium in my review of the chart. Speech was back to baseline at the time of DC from [facility]. She was seen by PT/OT/ST at [facility] and acute rehab was recommended at [place]. She was transferred to the acute inpt rehab unit at [facility] on 11/12/24 for 3 hours of therapy daily to restore function/independence at or near her level prior to recent events. Since her craniotomy in 2022 she requires assistance from family for many ADL's. All lab drawn this AM was personally reviewed. White blood cell count is normal at 7. Hemoglobin is mildly decreased at 11.1 which is stable from a CBC done in September 2024. Platelets are within normal limits. MCV is normal. RDW is very mildly increased at 44.3. Sodium is low at 127 and the potassium is 4.7. Sodium has been low since December 2022. Chloride is low at 95. BUN is 20 with a creatinine of 0.89 which is stable from creatinine on 09/27/2024. GFR is 66 which is consistent with stage II chronic renal failure. Calcium and phosphorus are normal. Magnesium is 2.0. Bilirubin and alkaline phosphatase are within normal limits however AST and ALT are mildly elevated at 57 and 82 respectively. Blood pressure since arrival on rehab has ranged from 115/36 to 170/44. Heart rate has ranged from 54-66. Postvoid residuals x 3 are all less than 100. [facility] Medical History (Updated 11/13/24 @ 14:[address] Jo-Ann Arias, DO) Presbycusis History of rheumatic fever as a child Grade II diastolic dysfunction Ischemic cerebrovascular accident (CVA) Intracranial epidural hematoma Cerebrovascular disease Mitral stenosis Pulmonary hypertension Stroke/cerebrovascular [...] 200 mg tablet 200 mg PO DAILY heart #90 TABLETS 12/12/23 11/12/24 08:30 Rx atorvastatin 10 mg tablet 10 mg PO QHS for cholesterol #90 0 12/12/23 11/11/24 21:08 Rx TABLETS apixaban 2.5 mg tablet 2.5 mg PO BID called to [facility] 08/13/2409/05 (more content not included)...[facility]06-09-2025 Evaluation note* Diagnosis Onset Date Resolution Status Admit Date Decubitus ulcer of coccyx, s tage 2 acute November 12, 2024 6 :16pm Generalized muscle weakness acute November 12, 2024 6:16pm Physical debility acute November 6:16pm Seizure disorder acute November 6:16pm Anticoagulant long-term use chronic November 12, 2024 6:16pm Carotid artery bruit chronic November 12, 2024 6:16pm Chronic anemia chronic November 12, 2024 6:16pm Grade II diastolic dysfunction chron ic November 12, 2024 6:16pm High cholesterol chronic November 6:16pm HTN (hypertension) chronic November 122024 6:16pm Intracranial epidural hematoma chron ic November 12, 2024 6:16pm 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 chronic November 12, 2024 6 :16pm Mild aortic stenosis chronic November 12, 2024 6:16pm Paroxysmal atrial fibrillation chron ic November 12, 2024 6:16pm Presbycusis chronic November 12 6:16pm Severe anxiety chronic November 12, 2024 6:16pm Acute cystitis resolved November 12, 2024 6:16pm Hypo-osmolality and hyponatremia res olved November 12, 2024 6:16pm Bradycardia, sinus inactive November 122024 6:16pm [facility] Work Phone: 1(491) 925-260606-09-2025 Evaluation note* Diagnosis Onset Date Resolution Status Admit Date Decubitus ulcer of coccyx, stage 2 acute November 12, 2024 6 :16pm Generalized muscle weakness acute November 12, 2024 6:16pm Physical debility acute November 6:16pm Seizure disorder acute November 6:16pm Anticoagulant long-term use chronic November 12, 2024 6:16pm Carotid artery bruit chronic November 12, 2024 6:16pm Chronic anemia chronic November 12, 2024 6:16pm Grade II diastolic dysfunction chron November 12, 2024 6:16pm High cholesterol chronic November 6:16pm HTN (hypertension) chronic November 122024 6:16pm Intracranial epidural hematoma chron November 12, 2024 6:16pm 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 chronic November 12, 2024 6 :16pm Mild aortic stenosis chronic November 12, 2024 6:16pm Paroxysmal atrial fibrillation chron November 12, 2024 6:16pm Presbycusis chronic November 12 6:16pm Severe anxiety chronic November 12, 2024 6:16pm Acute cystitis resolved November 12, 2024 6:16pm Hypo-osmolality and hyponatremia resolved November 12, 2024 6 :16pm Bradycardia, sinus inactive November 122024 6:16pm Ambulatory dysfunction acute 2024 10:35pm Generalized weakness acute December 03, 2024 10:35pm Intracranial epidural hematoma chron December 03, 2024 10:35pm [facility] Work Phone: 1(824) 507-454106-09-2025 Hospital course Narrative* Angel Melendrez MD - 11/12/2024 4:03 PM EDT Images from the original note were not included. Hospital Medicine Discharge Summary Patient: Sarah Mcguire, : 1945, Admission Details Admit Date 11/07/2024 Discharge Date 11/12/2024 Inpatient Days 4 Primary Diagnoses Seizures Action Items Follow up with neurology and neurosurgery Summary of Hospitalization Dear Doctors, I recently had the opportunity to care for Sarah Mcguire during her recent hospital stay at [facility]. As you may know, Sarah Mcguire is a 78 y.o. woman with a history of HTN, HLD, atrial fibrillation, and meningioma s/p resection, which was complicated by hemorrhage and emergent craniotomy who presentswith seizure-like episodes. During her admission she was seen by neurology and monitored with continuous EEG. No epileptic events were recorded, but she was noted to have continuous left hemispheric polymorphic theta slow activity. She was clinically diagnosed with seizures and at the time of discharge she was continued on keppra and counseled to follow up with neurology in the outpatient setting. During her admission her blood pressures were also noted to be uncontrolled and she was markedly bradycardic to the 40s. Her blood pressure regimen was simplified to lisinopril 10 mg, and she was well controlled at the time of discharge. She was also noted to have bacteriuria, which was questionably symptomatic, but she was continued on PO cefdinir to complete a 7 day course in the outpatient setting. BMI: 24.9 Upon discharge the patient's code was Full Code Please see the remainder of this document for relevant data from this admission as well as the patient's discharge instructions and follow-up appointments. An electronic copy of the patient's recordscan be obtained via [facility] at [email or web address] It has been my pleasure participating in this patient's care. Please contact me with any questions or concerns regarding her hospital stay. The total time of discharge was 45 minutes. Sincerely, Angel Melendrez MD Division of Hospital Medicine Problem list reviewed at discharge. Relevant Data from this Admission Vitals: 11/12/24 1154 BP: 150/66 Pulse: 59 Resp: 18 Temp: 97.9 F (36.6 C) SpO2: 98% Physical Exam Gen: Alert, Awake, NAD Eyes: PERRLA, EOMI, no icterus ENT: MMM, trachea midline Resp: CTA & P, normal respiratory effort Cardio: RRR, normal S1, S2, no M/R/G. No TRISTAN. GI: S/NT/ND, NABS MS: No joint effusions or erythema Skin: No jaundice or rash Neuro: supervisor customer complaint service 3-7, 9-11 intact and equal. Strength grossly equal in muscle groups of the bilateral UEsand LEs. Psych: Ox3, appropriate affect and cognition Recent Labs 11/12/24 0458 WBC 6.18 HGB 10.6* PLATELET 195 SODIUM 131* POTASSIUM 4.5 CO2 25 ANIONGAP 12 BUN 16 CREATSERUM 0.89 Patient Instructions Future Appointments Date Time Provider Department Center 11/28/2024 12:00 PM MD LIZET Esquivel [facility] [address] [facility] [id number] Medication List for when you go home START taking these medications Morning Afternoon Evening Bedtime As Needed Cefdinir 300 MG capsule Take 1 capsule by mouth every 12 hours for 3 days. Commonly known as: OMNICEF 1 capsule 1 capsule Levetiracetam 1000 MG TABS Take 1 tablet by mouth every 12 hours. Last time this was given: 1,000 mg on November 12, 2024 8:31 AM 1 tablet 1 tablet CHANGE how you take these medications Morning Afternoon Evening Bedtime As Needed apixaban 2.5 MG TABS Take 1 tablet by mouth every 12 hours. Commonly known as: Eliquis For diagnoses: Paroxysmal atrial fibrillation What changed: The strength you have reported taking of this medication has changed The quantity you have reported taking of this medication has changed How you take your medication has changed How often you have reported taking this medication has changed 1 tablet 1 tablet Lisinopril 10 MG TABS Take 1 tablet by mouth daily. Commonly known as: PRINIVIL What changed: The strength you have reported taking of this medication has changed The quantity you have reported taking of this medication has changed How you take your medication has changed How often you have reported taking this medication has changed Last time this was given: 10 mg on November 12, 2024 8:31 AM 1 tablet CONTINUE taking these medications Morning Afternoon Evening Bedtime As Needed Acetaminophen 325 MG tablet 1 tablet by Per NG tube route every 4 hours as needed for Mild Pain. Commonly known as: TYLENOL Last time this was given: 650 mg on November 12, 2024 1:17 PM 1 tablet AMIOdarone 200 MG TABS Commonly known as: PACERONE Last time this was given: 200 mg on November 12, 2024 8:31 AM See Instructions Atorvastatin 10 MG TABS Take 1 tablet by mouth at bedtime. Commonly known as: LIPITOR Last time this was given: 10 mg on November 11, 2024 9:00 PM 1 tablet Mag64 [address] tablet ER Generic drug: magnesium Chloride See Instructions STOP taking these medications carveDILOL 12.5 MG TABS Commonly known as: COREG Doxazosin 2 MG TABS Commonly known as: CARDURA hydroCHLOROthiazide 25 MG TABS Commonly known as: HYDRODIURIL Spironolactone 25 MG/5ML SUSP [facility] Plan of care note* Plan of Care - Shanna Benavides RN - 11/12/2024 3:44 PM EDT Problem: Adult Inpatient Plan of Care Goal: [...] Discharge Problem: Mobility Impairment Goal: Optimal Mobility [place] and Safety Outcome: Adequate for Discharge Problem: Communication Impairment Goal: Effective Communication Skills Outcome: Adequate for Discharge [facility]06-09-2025 Miscellaneous Notes* Plan of Care - Shanna Benavides RN - 11/12/2024 3:44 PM EDT Problem: Adult Inpatient Plan of Care Goal: Plan of Care Review Outcome: Adequate for Discharge Goal: Patient-Specific Goal (Individualized) Outcome: Adequate for Discharge Goal: Absence of Hospital-Acquired Illness or Injury Outcome: Adequate for Discharge Goal: Optimal Comfort and Wellbeing Outcome: Adequate for Discharge Intervention: Provide Person-Centered Care Flowsheets (Taken 11/12/2024 6423) Trust Relationship/Rapport: care explained emotional support provided [...] Discharge Problem: Mobility Impairment Goal: Optimal Mobility [place] and Safety Outcome: Adequate for Discharge Problem: Communication Impairment Goal: Effective Communication Skills Outcome: Adequate for Discharge * Nursing Notes - Shanna Benavides RN - 11/12/2024 3:42 PM EDT Report called to Mo STEELE * Plan of Care - Karen Johnson, ERASTO - 11/12/2024 12:29 PM EDT Problem: PT - General Goals Goal: Supine <-> Sit Transfers - Patient will perform supine to/from sit transfers with minimal assistance and with use of hospital bed features in order to improve functional mobility and safety. Outcome: Progressing Goal: Sit <-> Stand Transfers - Patient will perform sit to/from stand transfers with minimalassistance and least restrictive device in order to improve functional mobility and safety. Outcome: Progressing Goal: Standing Endurance/Balance - Patient will perform standing balance tasks for 5 min with minimal assistance and least restrictive device Outcome: Progressing Goal: Ambulation - Patient will ambulate 50 feet with minimal assistance and least restrictive device to improve ability to safely navigate home and community. Outcome: Progressing * Plan of Care - Grace Myeer OT - 11/12/2024 11:45 AM EDT Problem: OT - ADLs Goal: Grooming - Patient will complete grooming in standing with minimal assistance for improved ability to safely complete ADLs. Outcome: Progressing Problem: OT - Transfers Goal: Transfers Sit/Stand - Patient will demonstrate good safety awareness during sit to/from standfunctional transfer with minimal assistance and front- wheeled walker to demonstrate safe functionaltransfers. Outcome: Progressing Problem: OT - Balance Goal: Balance - Standing - Patient will perform 5 minutes of functional task in standing with minimal assistance and fair balance to promote safety and improved balance required for self-care activities. Outcome: Progressing Problem: OT - Endurance Goal: Endurance Functional Mobility - Patient will complete distance needed to access restroom withww and min A for improved tolerance to safely complete I/ADL's Outcome: Progressing Problem: OT - Cognition Goal: Safety - Patient will demonstrate good safety awareness during ADL routine with 25% or less cues for accuracy. Outcome: Progressing * Plan of Care - Shanna Benavides RN - 11/12/2024 9:00 AM EDT Problem: Adult Inpatient Plan of Care Goal: Optimal Comfort and Wellbeing Intervention: Provide Person-Centered Care Flowsheets (Taken 11/12/2024 0859) Trust Relationship/Rapport: care explained emotional support provided empathic listening provided questions answered * Plan of Care - Greta Yoder RN - 11/11/2024 7:56 PM EDT Problem: Adult Inpatient Plan of Care Goal: Plan of Care Review Outcome: Progressing Goal: Patient-Specific Goal (Individualized) Outcome: Progressing Goal: Absence of Hospital-Acquired Illness or Injury Outcome: Progressing Goal: Optimal Comfort and Wellbeing Outcome: Progressing Goal: Readiness for Transition of Care Outcome: Progressing Problem: Mobility Impairment Goal: Optimal Mobility [place] and Safety Outcome: Progressing Problem: Communication Impairment Goal: Effective Communication Skills Outcome: Progressing * Nursing Notes - Greta Yoder RN - 11/10/2024 5:15 PM EDT Orthostatic vitals obtained per MD order. See below: 11/10/24 1642 11/10/24 1644 06/07/25 1702 Vitals ICU/PCU Pulse (Heart Rate) 54 52 59 Heart Rate Source Monitor Monitor Monitor Resp Rate 20 18 24 BP 165/68 186/75 159/71 MAP (mmHg) 98 mmHg 108 mmHg 102 mmHg BP Method Automatic Automatic Automatic BP Location Left arm Left arm Right arm BP Position Lying Sitting Standing Oxygen Therapy O2 Sat (%) 98 % 97 % 98 % * Plan of Care - Greta Yoder RN - 11/10/2024 1:50 PM EDT Problem: Adult Inpatient Plan of Care Goal: Plan of Care Review Outcome: Progressing Goal: Patient-Specific Goal (Individualized) Outcome: Progressing Goal: Absence of Hospital-Acquired Illness or Injury Outcome: Progressing Goal: Optimal Comfort and Wellbeing Outcome: Progressing Goal: Readiness for Transition of Care Outcome: Progressing Problem: Mobility Impairment Goal: Optimal Mobility [place] and Safety Outcome: Progressing * Nursing Notes - Greta Yoder RN - 11/10/2024 8:40 AM EDT Orthostatic vital signs obtained per MD order. [...] Device room air room air room air * Plan of Care - Greta Quinn RN - 11/09/2024 4:26 PM EDT Problem: Adult Inpatient Plan of Care Goal: [...] will perform sit to/from stand transfers with minimalassistance and least restrictive device in order to [...] needed for improved ability to safely complete self- care activities. Outcome: Progressing Problem: OT - Transfers Goal: Transfers Sit/Stand - Patient will demonstrate good safety awareness during sit to/from standfunctional transfer with minimal assistance and front- wheeled walker to demonstrate safe functionaltransfers. Outcome: Progressing Problem: OT - Balance Goal: Balance - Standing - Patient will perform 5 minutes of functional task in standing with minimal assistance and fair balance to promote safety and improved balance required for self-care activities. Outcome: Progressing Problem: OT - Endurance Goal: Endurance Functional Mobility - Patient will complete distance needed to access restroom withww and min A for improved tolerance to safely complete I/ADL's Outcome: Progressing Problem: OT - Cognition Goal: Safety - Patient will demonstrate good safety awareness during ADL routine with 25% or less cues for accuracy. Outcome: Progressing * Plan of Care - Karen Johnson, PT - 11/09/2024 10:35 AM EDT Problem: PT - General Goals Goal: Supine <-> Sit Transfers - Patient will perform supine to/from sit transfers with minimal assistance and with use of hospital bed features in order to improve functional mobility and safety. Outcome: Ongoing Goal: Sit <-> Stand Transfers - Patient will perform sit to/from stand transfers with minimalassistance and least restrictive device in order to improve functional mobility and safety. Outcome: Ongoing Goal: Standing Endurance/Balance - Patient will perform standing balance tasks for 5 min with minimal assistance and least restrictive device Outcome: Ongoing Goal: Ambulation - Patient will ambulate 50 feet with minimal assistance and least restrictive device to improve ability to safely navigate home and community. Outcome: Ongoing * Plan of Care - Grace Meyer OT - 11/09/2024 10:15 AM EDT Problem: OT - ADLs Goal: Grooming - Patient will complete grooming in standing with minimal assistance for improved ability to safely complete ADLs. Outcome: Ongoing Goal: Toileting - Patient will complete toileting task with moderate assistance and adaptive equipment as needed for improved ability to safely complete self- care activities. Outcome: Ongoing Problem: OT - Transfers Goal: Transfers Sit/Stand - Patient will demonstrate good safety awareness during sit to/from standfunctional transfer with minimal assistance and front- wheeled walker to demonstrate safe functionaltransfers. Outcome: Ongoing Problem: OT - Balance Goal: Balance - Standing - Patient will perform 5 minutes of functional task in standing with minimal assistance and fair balance to promote safety and improved balance required for self-care activities. Outcome: Ongoing Problem: OT - Endurance Goal: Endurance Functional Mobility - Patient will complete distance needed to access restroom withww and min A for improved tolerance to safely complete I/ADL's Outcome: Ongoing Problem: OT - Cognition Goal: Safety - Patient will demonstrate good safety awareness during ADL routine with 25% or less cues for accuracy. Outcome: Ongoing * Plan of Care - Andrew Chopra MD - 11/09/2024 6:20 AM EDT Neurosurgery Update: Consulted for fluid under craioplasty. Imaging reviewed which revealed stable extradural fluid under cranioplasty, as expected after procedure. No neurosurgical intervention at this time. - for question of seizures or intermittent altered mental status, recommend neurology evaluation ifindicated. Otherwise can continue Keppra for 1 week total. - No neurosurgery follow up needed. - Neurosurgery will sign-off. Please call with questions. Andrew Chopra MD, Neurosurgery NS1 ([phone]) * Plan of Care - Joce Calvo RN - 11/08/2024 9:06 PM EDT Problem: Adult Inpatient Plan of Care Goal: Plan of Care Review Outcome: Progressing Goal: Patient-Specific Goal (Individualized) Outcome: Progressing Goal: Absence of Hospital-Acquired Illness or Injury Outcome: Progressing Goal: Optimal Comfort and Wellbeing Outcome: Progressing Goal: Readiness for Transition of Care Outcome: Progressing * Nursing Notes - Shelby Mae RN - 11/08/2024 4:46 PM EDT Images from the original note were not included. On admission to [facility], from ED a dual RN initial assessment of skin condition was performed by MICAH Rivera and Teresa Long RN. Skin Assessment: Skin not within defined limits. - Photo taken and uploaded into notes in IHIS: Yes Brent Score: 16 LDA Added:No Shelby Mae RN Right heel blanchable documented in this encounterU [facility] Miscellaneous Notes* Plan of Care - Shanna Benavides RN - 11/12/2024 3:44 PM EDT Problem: Adult Inpatient Plan of Care Goal: [...] Discharge Problem: Mobility Impairment Goal: Optimal Mobility [place] and Safety Outcome: Adequate for Discharge Problem: Communication Impairment Goal: Effective Communication Skills Outcome: Adequate for Discharge * Nursing Notes - Shanna Benavides RN - 11/12/2024 3:42 PM EDT Report called to Mo STEELE * Plan of Care - Karen Johnson PT - 11/12/2024 12:29 PM EDT Problem: PT - General Goals Goal: Supine <-> Sit Transfers - Patient will perform supine to/from sit transfers with minimal assistance and with use of hospital bed features in order to improve functional mobility and safety. Outcome: Progressing Goal: Sit <-> Stand Transfers - Patient will perform sit to/from stand transfers with minimalassistance and least restrictive device in order to improve functional mobility and safety. Outcome: Progressing Goal: Standing Endurance/Balance - Patient will perform standing balance tasks for 5 min with minimal assistance and least restrictive device Outcome: Progressing Goal: Ambulation - Patient will ambulate 50 feet with minimal assistance and least restrictive device to improve ability to safely navigate home and community. Outcome: Progressing * Plan of Care - Grace Meyer OT - 11/12/2024 11:45 AM EDT Problem: OT - ADLs Goal: Grooming - Patient will complete grooming in standing with minimal assistance for improved ability to safely complete ADLs. Outcome: Progressing Problem: OT - Transfers Goal: Transfers Sit/Stand - Patient will demonstrate good safety awareness during sit to/from standfunctional transfer with minimal assistance and front- wheeled walker to demonstrate safe functionaltransfers. Outcome: Progressing Problem: OT - Balance Goal: Balance - Standing - Patient will perform 5 minutes of functional task in standing with minimal assistance and fair balance to promote safety and improved balance required for self-care activities. Outcome: Progressing Problem: OT - Endurance Goal: Endurance Functional Mobility - Patient will complete distance needed to access restroom withww and min A for improved tolerance to safely complete I/ADL's Outcome: Progressing Problem: OT - Cognition Goal: Safety - Patient will demonstrate good safety awareness during ADL routine with 25% or less cues for accuracy. Outcome: Progressing * Plan of Care - Shanna Benavides RN - 11/12/2024 9:00 AM EDT Problem: Adult Inpatient Plan of Care Goal: Optimal Comfort and Wellbeing Intervention: Provide Person-Centered Care Flowsheets (Taken 11/12/2024 0859) Trust Relationship/Rapport: care explained emotional support provided empathic listening provided questions answered * Plan of Care - Greta Yoder RN - 11/11/2024 7:56 PM EDT Problem: Adult Inpatient Plan of Care Goal: Plan of Care Review Outcome: Progressing Goal: Patient-Specific Goal (Individualized) Outcome: Progressing Goal: Absence of Hospital-Acquired Illness or Injury Outcome: Progressing Goal: Optimal Comfort and Wellbeing Outcome: Progressing Goal: Readiness for Transition of Care Outcome: Progressing Problem: Mobility Impairment Goal: Optimal Mobility [place] and Safety Outcome: Progressing Problem: Communication Impairment Goal: Effective Communication Skills Outcome: Progressing * Nursing Notes - Greta Yoder RN - 11/10/2024 5:15 PM EDT Orthostatic vitals obtained per MD order. See [...] (%) 98 % 97 % 98 % * Plan of Care - Greta Yoder RN - 11/10/2024 1:50 PM EDT Problem: Adult Inpatient Plan of Care Goal: Plan of Care Review Outcome: Progressing Goal: Patient-Specific Goal (Individualized) Outcome: Progressing Goal: Absence of Hospital-Acquired Illness or Injury Outcome: Progressing Goal: Optimal Comfort and Wellbeing Outcome: Progressing Goal: Readiness for Transition of Care Outcome: Progressing Problem: Mobility Impairment Goal: Optimal Mobility [place] and Safety Outcome: Progressing * Nursing Notes - Greta Yoder RN - 11/10/2024 8:40 AM EDT Orthostatic vital signs obtained per MD order. [...] Device room air room air room air * Plan of Care - Greta Quinn RN - 11/09/2024 4:26 PM EDT Problem: Adult Inpatient Plan of Care Goal: [...] will perform sit to/from stand transfers with minimalassistance and least restrictive device in order to [...] needed for improved ability to safely complete self- care activities. Outcome: Progressing Problem: OT - Transfers Goal: Transfers Sit/Stand - Patient will demonstrate good safety awareness during sit to/from standfunctional transfer with minimal assistance and front- wheeled walker to demonstrate safe functionaltransfers. Outcome: Progressing Problem: OT - Balance Goal: Balance - Standing - Patient will perform 5 minutes of functional task in standing with minimal assistance and fair balance to promote safety and improved balance required for self-care activities. Outcome: Progressing Problem: OT - Endurance Goal: Endurance Functional Mobility - Patient will complete distance needed to access restroom withww and min A for improved tolerance to safely complete I/ADL's Outcome: Progressing Problem: OT - Cognition Goal: Safety - Patient will demonstrate good safety awareness during ADL routine with 25% or less cues for accuracy. Outcome: Progressing * Plan of Care - Karen Johnson PT - 11/09/2024 10:35 AM EDT Problem: PT - General Goals Goal: Supine <-> Sit Transfers - Patient will perform supine to/from sit transfers with minimal assistance and with use of hospital bed features in order to improve functional mobility and safety. Outcome: Ongoing Goal: Sit <-> Stand Transfers - Patient will perform sit to/from stand transfers with minimalassistance and least restrictive device in order to improve functional mobility and safety. Outcome: Ongoing Goal: Standing Endurance/Balance - Patient will perform standing balance tasks for 5 min with minimal assistance and least restrictive device Outcome: Ongoing Goal: Ambulation - Patient will ambulate 50 feet with minimal assistance and least restrictive device to improve ability to safely navigate home and community. Outcome: Ongoing * Plan of Care - Grace Meyer OT - 11/09/2024 10:15 AM EDT Problem: OT - ADLs Goal: Grooming - Patient will complete grooming in standing with minimal assistance for improved ability to safely complete ADLs. Outcome: Ongoing Goal: Toileting - Patient will complete toileting task with moderate assistance and adaptive equipment as needed for improved ability to safely complete self- care activities. Outcome: Ongoing Problem: OT - Transfers Goal: Transfers Sit/Stand - Patient will demonstrate good safety awareness during sit to/from standfunctional transfer with minimal assistance and front- wheeled walker to demonstrate safe functionaltransfers. Outcome: Ongoing Problem: OT - Balance Goal: Balance - Standing - Patient will perform 5 minutes of functional task in standing with minimal assistance and fair balance to promote safety and improved balance required for self-care activities. Outcome: Ongoing Problem: OT - Endurance Goal: Endurance Functional Mobility - Patient will complete distance needed to access restroom withww and min A for improved tolerance to safely complete I/ADL's Outcome: Ongoing Problem: OT - Cognition Goal: Safety - Patient will demonstrate good safety awareness during ADL routine with 25% or less cues for accuracy. Outcome: Ongoing * Plan of Care - Andrew Chopra MD - 11/09/2024 6:20 AM EDT Neurosurgery Update: Consulted for fluid under craioplasty. Imaging reviewed which revealed stable extradural fluid under cranioplasty, as expected after procedure. No neurosurgical intervention at this time. - for question of seizures or intermittent altered mental status, recommend neurology evaluation ifindicated. Otherwise can continue Keppra for 1 week total. - No neurosurgery follow up needed. - Neurosurgery will sign-off. Please call with questions. Andrew Chopra MD, Neurosurgery NS1 ([phone]) * Plan of Care - Joce Calvo RN - 11/08/2024 9:06 PM EDT Problem: Adult Inpatient Plan of Care Goal: Plan of Care Review Outcome: Progressing Goal: Patient-Specific Goal (Individualized) Outcome: Progressing Goal: Absence of Hospital-Acquired Illness or Injury Outcome: Progressing Goal: Optimal Comfort and Wellbeing Outcome: Progressing Goal: Readiness for Transition of Care Outcome: Progressing * Nursing Notes - Shelby Mae RN - 11/08/2024 4:46 PM EDT Images from the original note were not included. [facility] dual RN initial assessment of skin condition was performed by MICAH Rivera and Teresa Long RN. Skin Assessment: Skin not within defined limits. - Photo taken and uploaded into notes in IHIS: Yes Brent Score: 16 LDA Added:No Shelby Mae RN Right heel blanchable [facility]* Nursing Notes - Shanna Benavides RN - 11/12/2024 3:42 PM EDT [facility] History of Present illness Narrative* KEY Cast - 11/12/2024 12:59 PM EDT Care Management Discharge Note Selected Continued Care - Admitted Since 11/07/2024 Destination Coordination complete. Service Provider Services Address Phone Fax Patient Preferred [facility] Inpatient Rehabilitation [address] [facility] [address] [phone] -- Transport Request Mode of Transfer: BLS Name of Discharge Transport Company: ([facility]) Discharge Transport ETA: 3pm Patient medically stable for discharge per physician/medical team. Patient/Siebel Solution Architect remain inagreement with the discharge plan. JEREMI Cast, KEY Phlebotomy Instructor Available by Secure Chat * Karen Johnson, PT - 11/12/2024 12:29 PM EDT Acute Physical Therapy Treatment Prior Gross Functional Mobility: used device, independent Current AM-PAC score(s): CURRENT AM-PAC Mobility Raw Score: 15 Based on the above AM-PAC score(s) and PT clinical judgment, patient is a good candidate for discharge to [facility] Facility Barriers to discharge home: Patient needs [...] with WW requiring cues for increased MUNDO andanterior weight shifting. Pt able to briefly progress to contact guard assist during true static standing with WW for 10-20 seconds before requiring a sitting rest break Mobility Assessment/Intervention: Supine to Sit Mobility [place] Level: Supine->Sit: minimum assist (75% patient effort) Bed Features/Set-up: Supine->Sit: Head of bed elevated, Use of bed rail Skilled Rationale: Positioning, Sequencing, Hand placement, Verbal cues Skilled Intervention/Details: Supine->Sit: increased time and step by step cues for sequencing Transfer Assessment/Intervention: Sit to Stand Transfer [place] Level: Sit->Stand: minimum assist (75% patient effort) [...] control each stand to sit Bed-Chair Transfer [place] Johns Level: Bed<->Chair: moderate assist (50% patient effort) Physical Assist: Bed<->Chair: 2 person assist Assistive Device: Bed<->Chair: gait belt, hand held assist Skilled Rationale: Positioning, Sequencing, Hand placement, Verbal cues Skilled Intervention/Details: Bed<->Chair: Pt completed bed to chair transfer with arm and arm assist, pt required increased time but able to complete x 2-3 steps Gait/Functional Mobility Assessment/Intervention: Gait Assessment Saint Johns Level: Gait: minimum assist (75% patient effort) [...] to complete Stairs Assessment/Intervention: Outcome Score(s): CURRENT AM-PAC Basic Mobility Inpatient Short Form Turning over [...] with a railin - Total Assistance CURRENT [facility] Mobility Raw Score: 15 CURRENT [facility] Mobility Functional Limitation: 57.70% Impaired in [...] will perform sit to/from stand transfers with minimalassistance and least restrictive device in order to [...] simultaneous billable skilled care was necessary due tomedical complexity and functional deficits Other discipline: OT [...] Therapy Services or patient discharge from the hospitalthis note represents the current Physical Therapy Discharge Summary. * Grace Meyer OT - 11/12/2024 11:45 AM EDT Acute Occupational Therapy Treatment Prior Gross Functional Mobility: used device, independent Current AM-PAC score(s): CURRENT AM-PAC Activity Raw Score: 14 Based on the above AM-PAC score(s), and OT clinical judgment, discharge destination recommendation is: [facility] Barriers to discharge home: Patient needs [...] weakness, Balance, Wash/dry face Grooming Skilled Rationale (Verbal/Tactile/Visual/Demonstration): Supervision, Setup, Facilitate positioning Grooming Intervention/Details: cues [...] during task. Pt then completed standing trial x1with ww and CGA to min A, multimodal cues for upright posture and anterior weight shift Mobility Assessment/Intervention: Supine to Sit Mobility [place] Level: Supine->Sit: minimum assist (75% patient effort) Bed Features/Set-up: Supine->Sit: Head of bed elevated, Use of bed rail Skilled Rationale: Tactile cues, Verbal cues Skilled Intervention/Details: Supine->Sit: step by step sequencing cues and assist at LEs Transfer Assessment/Intervention: Sit to Stand Transfer [place] Level: Sit->Stand: minimum assist (75% patient effort) [...] anterior weight shift Stand to Sit Transfer [place] Level: Stand->Sit: minimum assist (75% patient effort) Assistive Device: Stand->Sit: gait belt, front-wheeled walker, armed chair Skilled Rationale: Hand placement, Verbal cues, Controlled descent for sitting Skilled Intervention/Details: Stand->Sit: cues for proximity to chair and reaching back to arm rest with fair eccentric control Bed-Chair Transfer [place] Level: Bed<->Chair: moderate assist (50% patient effort) Physical Assist: Bed<->Chair: 2 person assist Assistive Device: Bed<->Chair: gait belt, hand held assist Skilled Rationale: Verbal cues, Tactile cues Skilled Intervention/Details: Bed<->Chair: pivot transfer to left with bilat arm in arm, assist to weight shift bilat to progress feet Functional Mobility: Functional Mobility [place] Level: Functional Mobility/Gait: minimum assist (75% patient effort) Physical Assist: Functional Mobility/Gait: chair follow Assistive Device: Functional Mobility/Gait: gait belt, front-wheeled walker Functional Mobility Distance: (approx 5ft towards bathroom/sink) Functional Mobility Deficits: Activity tolerance, Balance, Slowed gait speed, Decreased step length Functional Mobility Skilled Rationale: Verbal cues, Tactile cues Skilled Intervention/Details - Functional Mobility/Gait: Pt completed with max encouragement, min Aand cues for increased step length and progression of ww, close chair follow Outcome Score(s): CURRENT [facility] Daily Activity Inpatient Short Form Putting on/Taking Off Lower Body Clothin - Total Assistance Bathin - A Lot of Assistance Toiletin - Total Assistance Putting on/Taking Off Upper Body Clothin - A Little Assistance Groomin - A Little Assistance Eatin - No Assistance CURRENT [facility] Activity Raw Score: 14 CURRENT [facility] Activity Functional Limitation/Modifier: 59.67% Currently Impaired in Daily Activity- CK Assessment & Plan: Pt demonstrates increased [...] demonstrate good safety awareness during sit to/from standfunctional transfer with minimal assistance and front- wheeled walker to demonstrate safe functionaltransfers. Outcome: Progressing Problem: OT - Balance Goal: Balance - Standing - Patient will perform 5 minutes of functional task in standing with minimal assistance and fair balance to promote safety and improved balance required for self-care activities. Outcome: Progressing Problem: OT - Endurance Goal: Endurance Functional Mobility - Patient will complete distance needed to access restroom withww and min A for improved tolerance to [...] simultaneous billable skilled care was necessary due tomedical complexity and functional deficits Other discipline: PT [...] represents the current Occupational Therapy Discharge Summary. * Miracle Graff - 11/12/2024 10:26 AM EDT Care Management Progress Note Transportation for discharge arranged Mode of Transfer: (P) [facility] Name of Discharge Transport Company: (P) Other ([facility]) Discharge Transport ETA: (P) 11/12/2024 @ 3:00pm Pick-up from [place] [id number] Destination [address] [address] Miracle Graff Care Management Inventory Controller * MOIRA Lowe - 11/11/2024 1:38 PM EDT Psychosocial Assessment Per chart review, patient is an 78 year old female who presents with concern for slurred speech/word finding difficulty. Thermo Processor met with patient to introduce self, explain social work role during the inpatient stay and answer patient questions. Patient was alert and oriented x 4 and agreeable to social work visit. Information Source Information Source Information Source: patient Information Source Name: Sarah Mcguire Information Source Number: [id number] Considerations for the Medical Team: Patient has [...] issues: Positive tox screen: No Cultural, Spiritual, Buddhism Practices Cultural or moravian practices that may impact discharge planning and/or [...] No needs at this time. CHIOMA Quesada Concaver * MOIRA Lowe - 11/11/2024 1:33 PM EDT 11/11/24 1332 Social Work Screenings Screening patient has qualified for Trauma Patient appropriate for screening? Yes Trauma Screening Were you using substances at the time of the accident? No Is alcohol use a problem? No Interventions Intervention Needed? No CHIOMA Quesada Concaver * Angel Melendrez MD - 11/11/2024 9:16 AM EDT [facility] Medicine Daily Progress Note Patient: Sarah Mcguire, [...] MRA brain, and MRA neck without evidence ofnew CVA. - Neurology feels that this is highly concerning for seizures, though no events captured on EEG. - Continue keppra 23472 mg BID Hypertensive Urgency: SBP in 200's [...] was afebrile, hemodynamically stable, and had appropriate oxygensaturation on RA. Patient denied pain or dyspnea. Daughter was at bedside. Discussed her ongoing plan of care and discharge planning. All questions answered. OBJECTIVE Temp 97.8 F (36.6 C) Pulse 53 Resp 24 BP 155/67 SaO2 98 % Weight PHYSICAL EXAM Gen: A, A, NAD, SHOSHONE-BANNOCK ENT: MMM Resp: CTA & P bilat, normal effort Cardio: RRR, normal S1, S2, No TRISTAN GI: S/NT/ND, NABS Psych: Ox3, appropriate affect and cognition DATA REVIEW WBC/Hgb/Hct/Plts: 5.77/10.2/29.3/193 (11/12 435) Na/K+/Phos/Mg/Ca: 130/4.3/--/--/-- (11/12 435) Bun/Creat/Cl/CO2/Glucose: 15/0.93/98/24/95 (11/12 435) * Angel Melendrez MD - 11/10/2024 7:35 AM EDT [facility] Medicine Daily Progress Note Patient: Sarah Mcguire, [...] was afebrile, hemodynamically stable, and had appropriate oxygensaturation on RA. Patient was leaving to go to MRI. Stayed with daughter and discussed her ongoing plan of care and titration of her blood pressure medications. OBJECTIVE Temp 97.4 F (36.3 C) Pulse 51 Resp 18 BP 171/72 SaO2 100 % Weight PHYSICAL EXAM Gen: A, A, NAD, SHOSHONE-BANNOCK ENT: MMM Resp: CTA & P bilat, normal effort Cardio: RRR, normal S1, S2, No TRISTAN GI: S/NT/ND, NABS Psych: Ox3, appropriate affect and cognition DATA REVIEW WBC/Hgb/Hct/Plts: 9.67/11.1/31.4/205 (11/10 338) Na/K+/Phos/Mg/Ca: 132/4.7/--/--/-- (11/10 338) Bun/Creat/Cl/CO2/Glucose: 16/0.78/99/25/96 (11/10 338) * TERRY Loja - 11/09/2024 3:43 PM EDT Acute Care Speech Therapy Screen Note ? RESAW CARRIAGE OPERATOR speech/language/cognitive consult received and chart review completed this date. Pt is admittedwith word finding difficulties. Head imaging is non-acute (please see CT imaging for further details.). Patient with hx of meningioma s/p left frontotemporal resection and flap reconstruction (2022) c/b EDH s/p emergent L frontal craniotomy. Patient was seen in 2022 for speech therapy services and has not received further services. Per discussion with RN, patient has returned near baseline. Giventhis and chronicity of deficits, do not recommend services at this time. If concerns arise, recommend outpatient RESAW CARRIAGE OPERATOR services. Time in: 1529 Time out: 1529 Speech-Language Pathologist Radha Yost, RESAW CARRIAGE OPERATOR * Karen Johnson, PT - 11/09/2024 10:35 AM EDT Acute Physical Therapy Evaluation Prior Gross Functional Mobility: used device, independent Current AM-PAC score(s): CURRENT AM-PAC Mobility Raw Score: 10 Based on the above AM-PAC score(s) and PT clinical judgment, patient is a good candidate for discharge to [facility] Barriers to discharge home: Patient needs [...] noted Mobility Assessment: Supine to Sit Mobility [place] Johns Level: Supine->Sit: moderate assist (50% patient effort) [...] assist Transfer Assessment: Sit to Stand Transfer [place] Level: Sit->Stand: minimum assist (75% patient effort) Physical Assist: Sit->Stand: 2 person assist Assistive Device: Sit->Stand: gait belt, hand held assist Skilled Rationale: Positioning, Sequencing, Hand placement, Verbal cues Skilled Intervention/Details: Sit->Stand: pt educated in sit to stand transfer with min assist of 2 and arm and arm assist, pt completed sit to stand from EOB and bedside commode Bed-Chair Transfer [place] Johns Level: Bed<->Chair: moderate assist (50% patient effort) [...] steps Gait/Functional Mobility: Stairs: Outcome Score(s): CURRENT [facility] Basic Mobility Inpatient Short Form Turning [...] with a railin - Total Assistance CURRENT [facility] Mobility Raw Score: 10 CURRENT [facility] Mobility Functional Limitation: 76.75% Impaired in Basic [...] these impairments, functional limitations, and participation restrictions andhas good rehab potential to achieve therapy goals. [...] will perform sit to/from stand transfers with minimalassistance and least restrictive device in order to [...] simultaneous billable skilled care was necessary due tomedical complexity and functional deficits Other discipline: OT [...] Therapy Services or patient discharge from the hospitalthis note represents the current Physical Therapy Discharge Summary. * KEY Cast - 11/09/2024 10:35 AM EDT Discharge Planning Assessment Is the patient able to participate in the assessment?: Yes Care Management Plan CM met with patient and daughter at bedside, Daughter stated she moved in with patient about a yearago. Daughter assists patient with safety. Current recommendation is for SNF. Patient prefer [facility]. She had been there in the past. CM will initiate referral today. YI TBD. Initial Discharge Planning Expected Discharge Disposition: [facility] Transportation Available for Discharge: Ambulance Anticipated DME: unknown at this time Anticipated Services at Discharge: Physical Therapy, Occupational Therapy, Outpatient follow up, [facility] Patient Assessment Completed: Initial Legal Next of Kin Does the patient have a Guardian?: No Spouse: No Adult Child(morris), List All Adult Children: Yes Name and Contact information: Alexsandra Grullon [phone] Reviewed and Updated in Demographics? : Yes Advanced Care Planning Has the patient completed Advance Directives?: Completed, Not Available in Medical Record Copy of Advance Directives was requested?: Yes Advance Directives Requested From: Daughter Medication Management Does the patient have prescription insurance coverage? : Yes Is the patient on Anticoagulation? : Yes Provider or Clinic that manages Anticoagulation?: [facility] [address] [place], [place] [address] [place] [id number] Living Environment and Support System Is the patient from a facility or retirement?: No Living Environment: House Patient Caregiving Responsibilities: [...] prior to this acute illness?: independent (Patient SHOSHONE-BANNOCK and prefers Daughter answer CM questions) Is the patient's baseline functioning changed by this acute illness? : Yes Changes observed : Physical Concerns with patient being able to care for themselves at home? : Yes JEREMI Cast, ANIMAL HUSBANDRY TECHNICIAN Phlebotomy Instructor Available by Secure Chat * Grace Meyer, OT - 11/09/2024 10:15 AM EDT Acute Occupational Therapy Evaluation Prior Gross Functional Mobility: used device, independent Current AM-PAC score(s): CURRENT AM-PAC Activity Raw Score: 14 Based on the above AM-PAC score(s) and OT clinical judgment, discharge destination recommendation is: [facility] Barriers to discharge home: Patient needs [...] bar use, Perineal hygiene Toilet Skilled Rationale (Verbal/Tactile/Visual/Demonstration): Supervision, Setup, Facilitate positioning Toileting Intervention/Details: Transferred to and from [facility] with min Ax2 and stood with min Ax2 andrequired total assist for magdaleno care Extremity Assessments: [...] approx 4-5 min prior to transfer to stand.Required initial min A progressing to CGA to [...] Edema: Mobility Assessment: Supine to Sit Mobility [place] Level: Supine->Sit: moderate assist (50% patient effort) Physical Assist: Supine->Sit: 2 person assist Bed Features/Set-up: Supine->Sit: Head of bed elevated Skilled Rationale: Verbal cues Skilled Intervention/Details: Supine->Sit: step by step sequencing cues, increased time, assist at trunk and hips Transfer Assessment: Sit to Stand Transfer [place] Level: Sit->Stand: minimum assist (75% patient effort) Physical Assist: Sit->Stand: 2 person assist Assistive Device: Sit->Stand: gait belt, hand held assist Skilled Rationale: Verbal cues, Tactile cues, Full extension to upright positioning/posture Skilled Intervention/Details: Sit->Stand: Completed x1 from EOB, x1 from BSC, and x1 from recliner. Bilat arm in arm, tactile cues at hips and cues for full upright posture Bed-Chair Transfer Saint Johns Level: Bed<->Chair: moderate assist (50% patient effort) [...] to left. Functional Mobility: Outcome Score(s): CURRENT -[facility] Daily Activity Inpatient Short Form Putting on/Taking Off Lower Body Clothin - Total Assistance Bathin - A Lot of Assistance Toiletin - Total Assistance Putting on/Taking Off Upper Body Clothin - A Little Assistance Groomin - A Little Assistance Eatin - No Assistance CURRENT [facility] Activity Raw Score: 14 CURRENT -[facility] Activity Functional Limitation/Modifier: 59.67% Currently Impaired in Daily Activity- CK Assessment & Plan: Patient was admitted for slurred speech/word-finding difficulty and seen for therapy evaluation related to balance, strength, activity tolerance affecting I in ADL/IADLs. Exam findings include impairments in: balance, endurance, pain, posture, strength, transfers. Theseimpairments contribute to occupational performance limitations including bathing, [...] needed for improved ability to safely complete self- care activities. Outcome: Ongoing Problem: OT - Transfers Goal: Transfers Sit/Stand - Patient will demonstrate good safety awareness during sit to/from standfunctional transfer with minimal assistance and front- wheeled walker to demonstrate safe functionaltransfers. Outcome: Ongoing Problem: OT - Balance Goal: Balance - Standing - Patient will perform 5 minutes of functional task in standing with minimal assistance and fair balance to promote safety and improved balance required for self-care activities. Outcome: Ongoing Problem: OT - Endurance Goal: Endurance Functional Mobility - Patient will complete distance needed to access restroom withww and min A for improved tolerance to [...] (Moderate) Time Entry: 29 Evaluating Therapist: Grace Baumgard, OT Additional Details: OT Co-Eval/Treatment Information Co-evaluation/co-treatment performed?: Yes, simultaneous billable skilled care was necessary due tomedical complexity and functional deficits Other discipline: PT [...] represents the current Occupational Therapy Discharge Summary. * Angel Melendrez MD - 11/09/2024 8:36 AM EDT [facility] Medicine Daily Progress Note Patient: Sarah Mcguire, [...] Weight PHYSICAL EXAM Gen: A, A, NAD, SHOSHONE-BANNOCK ENT: MMM Resp: CTA & P bilat, normal effort Cardio: RRR, normal S1, S2, No TRISTAN GI: S/NT/ND, NABS Psych: Ox3, appropriate affect and cognition DATA REVIEW WBC/Hgb/Hct/Plts: 6.17/10.4/28.5/182 (11/10 335) Na/K+/Phos/Mg/Ca: 133/4.2/3.6/1.9/-- (11/10 335) Bun/Creat/Cl/CO2/Glucose: 20/0.97/100/26/110 (11/10 335) Ptt/Pt/Inr: 31.6/14.0/1.1 (11/10 335) * KEY Rivera - 11/07/2024 8:23 PM EDT 11/07/242022 Social Work Screenings Screening patient has qualified for Trauma Patient appropriate for screening? No - altered mental status JEREMI Keith, CLASSIFICATION AND TREATMENT DIRECTOR-S Concaver, Emergency Dept. * МАРИЯ Pete - 11/07/2024 1:44 PM EDT Trauma Response Per EMS ([facility]), patient is Sarah Mcguire 41 Family is not present. EMS states daughter is en route. Pastoral presence provided. Rev. Abraham Stokes M.Div., [place], [facility] [phone] (office) Chaplains are available 27/12 by paging [phone]. 11/07/24 1315 Clinical Encounter Type Visited With Health Care Provider;Patient Visit Type Introduction Crisis Visit Trauma Pastoral Time Spent 15 min Referral Automated Page Interventions Provided Active listening;Supportive presence Plan of Care Continue Visiting PR[facility] History of Present illness Narrative* KEY Cast - 11/12/2024 12:59 PM EDT Care Management Discharge Note Selected Continued Care - Admitted Since 11/07/2024 Destination Coordination complete. Service Provider Services Address Phone Fax Patient Preferred [facility] Inpatient Rehabilitation [address] [facility] [address] [phone] -- Transport Request Mode of Transfer: BLS Name of Discharge Transport Company: ([facility]) Discharge Transport ETA: 3pm Patient medically stable for discharge per physician/medical team. Patient/Siebel Solution Architect remain inagreement with the discharge plan. JEREMI Cast, ANIMAL HUSBANDRY TECHNICIAN Phlebotomy Instructor Available by Secure Chat * Karen Johnson PT - 11/12/2024 12:29 PM EDT Acute Physical Therapy Treatment Prior Gross Functional Mobility: used device, independent Current AM-PAC score(s): CURRENT AM-PAC Mobility Raw Score: 15 Based on the above AM-PAC score(s) and PT clinical judgment, patient is a good candidate for discharge to [facility] Barriers to discharge home: Patient needs [...] standing with WW requiring cues for increased MUNOD andanterior weight shifting. Pt able to briefly progress to contact guard assist during true static standing with WW for 10-20 seconds before requiring a sitting rest break Mobility Assessment/Intervention: Supine to Sit Mobility [place] Level: Supine->Sit: minimum assist (75% patient effort) Bed Features/Set-up: Supine->Sit: Head of bed elevated, Use of bed rail Skilled Rationale: Positioning, Sequencing, Hand placement, Verbal cues Skilled Intervention/Details: Supine->Sit: increased time and step by step cues for sequencing Transfer Assessment/Intervention: Sit to Stand Transfer [place] Level: Sit->Stand: minimum assist (75% patient effort) [...] control each stand to sit Bed-Chair Transfer [place] Level: Bed<->Chair: moderate assist (50% patient effort) Physical Assist: Bed<->Chair: 2 person assist Assistive Device: Bed<->Chair: gait belt, hand held assist Skilled Rationale: Positioning, Sequencing, Hand placement, Verbal cues Skilled Intervention/Details: Bed<->Chair: Pt completed bed to chair transfer with arm and arm assist, pt required increased time but able to complete x 2-3 steps Gait/Functional Mobility Assessment/Intervention: Gait Assessment [place] Level: Gait: minimum assist (75% patient effort) [...] to complete Stairs Assessment/Intervention: Outcome Score(s): CURRENT [facility] Basic Mobility Inpatient Short Form Turning [...] with a railin - Total Assistance CURRENT [facility] Mobility Raw Score: 15 CURRENT [facility] Mobility Functional Limitation: 57.70% Impaired in [...] will perform sit to/from stand transfers with minimalassistance and least restrictive device in order to [...] simultaneous billable skilled care was necessary due tomedical complexity and functional deficits Other discipline: OT [...] Therapy Services or patient discharge from the hospitalthis note represents the current Physical Therapy Discharge Summary. * Grace Meyer OT - 11/12/2024 11:45 AM EDT Acute Occupational Therapy Treatment Prior Gross Functional Mobility: used device, independent Current AM-PAC score(s): CURRENT AM-PAC Activity Raw Score: 14 Based on the above AM-PAC score(s), and OT clinical judgment, discharge destination recommendation is: [facility] Barriers to discharge home: Patient needs [...] weakness, Balance, Wash/dry face Grooming Skilled Rationale (Verbal/Tactile/Visual/Demonstration): Supervision, Setup, Facilitate positioning Grooming Intervention/Details: cues [...] during task. Pt then completed standing trial x1with ww and CGA to min A, multimodal cues for upright posture and anterior weight shift Mobility Assessment/Intervention: Supine to Sit Mobility [place] Level: Supine->Sit: minimum assist (75% patient effort) Bed Features/Set-up: Supine->Sit: Head of bed elevated, Use of bed rail Skilled Rationale: Tactile cues, Verbal cues Skilled Intervention/Details: Supine->Sit: step by step sequencing cues and assist at LEs Transfer Assessment/Intervention: Sit to Stand Transfer [place] Level: Sit->Stand: minimum assist (75% patient effort) [...] anterior weight shift Stand to Sit Transfer [place] Level: Stand->Sit: minimum assist (75% patient effort) Assistive Device: Stand->Sit: gait belt, front-wheeled walker, armed chair Skilled Rationale: Hand placement, Verbal cues, Controlled descent for sitting Skilled Intervention/Details: Stand->Sit: cues for proximity to chair and reaching back to arm rest with fair eccentric control Bed-Chair Transfer [place] Level: Bed<->Chair: moderate assist (50% patient effort) Physical Assist: Bed<->Chair: 2 person assist Assistive Device: Bed<->Chair: gait belt, hand held assist Skilled Rationale: Verbal cues, Tactile cues Skilled Intervention/Details: Bed<->Chair: pivot transfer to left with bilat arm in arm, assist to weight shift bilat to progress feet Functional Mobility: Functional Mobility [place] Level: Functional Mobility/Gait: minimum assist (75% patient effort) Physical Assist: Functional Mobility/Gait: chair follow Assistive Device: Functional Mobility/Gait: gait belt, front-wheeled walker Functional Mobility Distance: (approx 5ft towards bathroom/sink) Functional Mobility Deficits: Activity tolerance, Balance, Slowed gait speed, Decreased step length Functional Mobility Skilled Rationale: Verbal cues, Tactile cues Skilled Intervention/Details - Functional Mobility/Gait: Pt completed with max encouragement, min Aand cues for increased step length and progression of ww, close chair follow Outcome Score(s): CURRENT [facility] Daily Activity Inpatient Short Form Putting on/Taking Off Lower Body Clothin - Total Assistance Bathin - A Lot of Assistance Toiletin - Total Assistance Putting on/Taking Off Upper Body Clothin - A Little Assistance Groomin - A Little Assistance Eatin - No Assistance CURRENT [facility] Activity Raw Score: 14 CURRENT [facility] Activity Functional Limitation/Modifier: 59.67% Currently Impaired in Daily Activity- CK Assessment & Plan: Pt demonstrates increased [...] demonstrate good safety awareness during sit to/from standfunctional transfer with minimal assistance and front- wheeled walker to demonstrate safe functionaltransfers. Outcome: Progressing Problem: OT - Balance Goal: Balance - Standing - Patient will perform 5 minutes of functional task in standing with minimal assistance and fair balance to promote safety and improved balance required for self-care activities. Outcome: Progressing Problem: OT - Endurance Goal: Endurance Functional Mobility - Patient will complete distance needed to access restroom withww and min A for improved tolerance to [...] simultaneous billable skilled care was necessary due tomedical complexity and functional deficits Other discipline: PT [...] represents the current Occupational Therapy Discharge Summary. * Miracle Graff - 11/12/2024 10:26 AM EDT Care Management Progress Note Transportation for discharge arranged Mode of Transfer: (P) BLS Name of Discharge Transport Company: (P) Other ([facility]) Discharge Transport ETA: (P) 11/12/2024 @ 3:00pm Pick-up from [facility] 1078/A Destination [facility] [address] [place] [address] Miracle Graff Care Management Inventory Controller * Nicholas Carrizales MD - 11/12/2024 10:00 AM EDT Images from the original note were not included. NEUROLOGY CONSULTATION SIGN OFF NOTE Sarah Mcguire is a 78 y.o. 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 Concerning for breakthrough seizure with prior DAIRY EQUIPMENT MECHANIC operation, mild increase of prior extra-axial DAIRY EQUIPMENT MECHANIC fluid collections. MR scan without stroke. 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 Can have family members videotape events of concern for review at follow-up appointment - Continue seizure precautions Discussed seizure precautions during the initial consult evaluation: no taking baths (take showers instead), when using restroom do not lock door, no driving for 6 months. Use microwave/oven cooking rather than gas cooking. No swimming alone (can swim but as long as someone is with patient). - Follow up in [facility] neurology resident clinic in 2-3 months, ordered by me Our team will now sign off. Thank you for this consult. Discussed with Dr. Ferguson. Please call the Neurology resident prescription clerk lenses or page Consult Team A on WebExchange with questions. Signed, Cosigned by Bill Ferguson MD at 11/13/2024 7:22 AM EDT Associated attestation - Bill Ferguson MD - 11/13/2024 7:22 AM EDT I discussed the the assessment and plan for this patient with the resident. Bill Ferguson M.D. Restaurant Area Manager of Neurology Co-Director of Neurohospitalist Medicine & Teleneurology * MOIRA Lowe - 11/11/2024 1:38 PM EDT Psychosocial Assessment Per chart review, patient is an 78 year old female who presents with concern for slurred speech/word finding difficulty. Thermo Processor met with patient to introduce self, explain social work role during the inpatient stay and answer patient questions. Patient was alert and oriented x 4 and agreeable to social work visit. Information Source Information Source Information Source: patient Information Source Name: Sarah Mcguire Information Source Number: [phone] Considerations for the Medical Team: Patient has [...] issues: Positive tox screen: No Cultural, Spiritual, Buddhism Practices Cultural or moravian practices that may impact discharge planning and/or [...] No needs at this time. CHIOMA Quesada Concaver * MOIRA Lowe - 11/11/2024 1:33 PM EDT 11/11/24 1332 Social Work Screenings Screening patient has qualified for Trauma Patient appropriate for screening? Yes Trauma Screening Were you using substances at the time of the accident? No Is alcohol use a problem? No Interventions Intervention Needed? No CHIOMA Quesada Concaver * Angel Melendrez MD - 11/11/2024 9:16 AM EDT [facility] Medicine Daily Progress Note Patient: Sarah Mcguire, [...] MRA brain, and MRA neck without evidence ofnew CVA. - Neurology feels that this is highly concerning for seizures, though no events captured on EEG. - Continue keppra 73557 mg BID Hypertensive Urgency: SBP in 200's [...] was afebrile, hemodynamically stable, and had appropriate oxygensaturation on RA. Patient denied pain or dyspnea. Daughter was at bedside. Discussed her ongoing plan of care and discharge planning. All questions answered. OBJECTIVE Temp 97.8 F (36.6 C) Pulse 53 Resp 24 BP 155/67 SaO2 98 % Weight PHYSICAL EXAM Gen: A, A, NAD, SHOSHONE-BANNOCK ENT: MMM Resp: CTA & P bilat, normal effort Cardio: RRR, normal S1, S2, No TRISTAN GI: S/NT/ND, NABS Psych: Ox3, appropriate affect and cognition DATA REVIEW WBC/Hgb/Hct/Plts: 5.77/10.2/29.3/193 (11/12 435) Na/K+/Phos/Mg/Ca: 130/4.3/--/--/-- (11/12 435) Bun/Creat/Cl/CO2/Glucose: 15/0.93/98/24/95 (11/12 435) * Angel Melendrez MD - 11/10/2024 7:35 AM EDT [facility] Medicine Daily Progress Note Patient: Sarah Mcguire, [...] was afebrile, hemodynamically stable, and had appropriate oxygensaturation on RA. Patient was leaving to go to MRI. Stayed with daughter and discussed her ongoing plan of care and titration of her blood pressure medications. OBJECTIVE Temp 97.4 F (36.3 C) Pulse 51 Resp 18 BP 171/72 SaO2 100 % Weight PHYSICAL EXAM Gen: A, A, NAD, SHOSHONE-BANNOCK ENT: MMM Resp: CTA & P bilat, normal effort Cardio: RRR, normal S1, S2, No TRISTAN GI: S/NT/ND, NABS Psych: Ox3, appropriate affect and cognition DATA REVIEW WBC/Hgb/Hct/Plts: 9.67/11.1/31.4/205 (11/10 338) Na/K+/Phos/Mg/Ca: 132/4.7/--/--/-- (11/10 338) Bun/Creat/Cl/CO2/Glucose: 16/0.78/99/25/96 (11/10 338) * TERRY Loja - 11/09/2024 3:43 PM EDT Acute Care Speech Therapy Screen Note ? RESAW CARRIAGE OPERATOR speech/language/cognitive consult received and chart review completed this date. Pt is admittedwith word finding difficulties. Head imaging is non-acute (please see CT imaging for further details.). Patient with hx of meningioma s/p left frontotemporal resection and flap reconstruction (2022) c/b EDH s/p emergent L frontal craniotomy. Patient was seen in 2022 for speech therapy services and has not received further services. Per discussion with RN, patient has returned near baseline. Giventhis and chronicity of deficits, do not recommend services at this time. If concerns arise, recommend outpatient RESAW CARRIAGE OPERATOR services. Time in: 1530 Time out: 1530 Speech-Language Pathologist TERRY Loja * Karen Johnson, PT - 11/09/2024 10:35 AM EDT Acute Physical Therapy Evaluation Prior Gross Functional Mobility: used device, independent Current AM-PAC score(s): CURRENT AM-PAC Mobility Raw Score: 10 Based on the above AM-PAC score(s) and PT clinical judgment, patient is a good candidate for discharge to [facility] Barriers to discharge home: Patient needs [...] noted Mobility Assessment: Supine to Sit Mobility [place] Level: Supine->Sit: moderate assist (50% patient effort) [...] assist Transfer Assessment: Sit to Stand Transfer [place] Level: Sit->Stand: minimum assist (75% patient effort) Physical Assist: Sit->Stand: 2 person assist Assistive Device: Sit->Stand: gait belt, hand held assist Skilled Rationale: Positioning, Sequencing, Hand placement, Verbal cues Skilled Intervention/Details: Sit->Stand: pt educated in sit to stand transfer with min assist of 2 and arm and arm assist, pt completed sit to stand from EOB and bedside commode Bed-Chair Transfer [place] Level: Bed<->Chair: moderate assist (50% patient effort) [...] steps Gait/Functional Mobility: Stairs: Outcome Score(s): CURRENT [facility] Basic Mobility Inpatient Short Form Turning [...] with a railin - Total Assistance CURRENT [facility] Mobility Raw Score: 10 CURRENT [facility] Mobility Functional Limitation: 76.75% Impaired in Basic [...] these impairments, functional limitations, and participation restrictions andhas good rehab potential to achieve therapy goals. [...] will perform sit to/from stand transfers with minimalassistance and least restrictive device in order to [...] (Moderate) Time Entry: 30 Evaluating Therapist: Karen Johnson, PT Additional Details: PT Co-Eval/Treatment Information Co-evaluation/co-treatment performed?: Yes, simultaneous billable skilled care was necessary due tomedical complexity and functional deficits Other discipline: OT [...] Therapy Services or patient discharge from the hospitalthis note represents the current Physical Therapy Discharge Summary. * KEY Cast - 11/09/2024 10:35 AM EDT Discharge Planning Assessment Is the patient able to participate in the assessment?: Yes Care Management Plan CM met with patient and daughter at bedside, Daughter stated she moved in with patient about a yearago. Daughter assists patient with safety. Current recommendation is for SNF. Patient prefer [facility]. She had been there in the past. CM will initiate referral today. YI TBD. Initial Discharge Planning Expected Discharge Disposition: [facility] Transportation Available for Discharge: Ambulance Anticipated DME: unknown at this time Anticipated Services at Discharge: Physical Therapy, Occupational Therapy, Outpatient follow up, [facility] Patient Assessment Completed: Initial Legal Next of Kin Does the patient have a Guardian?: No Spouse: No Adult Child(morris), List All Adult Children: Yes Name and Contact information: Alexsandra Grullon [phone] Reviewed and Updated in Demographics? : Yes Advanced Care Planning Has the patient completed Advance Directives?: Completed, Not Available in Medical Record Copy of Advance Directives was requested?: Yes Advance Directives Requested From: Daughter Medication Management Does the patient have prescription insurance coverage? : Yes Is the patient on Anticoagulation? : Yes Provider or Clinic that manages Anticoagulation?: [facility] [address] [place] [phone] [facility] [address] [facility] [id number] Living Environment and Support System Is the patient from a facility or retirement?: No Living Environment: House Patient Caregiving Responsibilities: [...] prior to this acute illness?: independent (Patient SHOSHONE-BANNOCK and prefers Daughter answer CM questions) Is the patient's baseline functioning changed by this acute illness? : Yes Changes observed : Physical Concerns with patient being able to care for themselves at home? : Yes JEREMI Cast, KEY Phlebotomy Instructor Available by Secure Chat * Grace Meyer OT - 11/09/2024 10:15 AM EDT Acute Occupational Therapy Evaluation Prior Gross Functional Mobility: used device, independent Current AM-PAC score(s): CURRENT AM-PAC Activity Raw Score: 14 Based on the above AM-PAC score(s) and OT clinical judgment, discharge destination recommendation is: [facility] Barriers to discharge home: Patient needs [...] bar use, Perineal hygiene Toilet Skilled Rationale (Verbal/Tactile/Visual/Demonstration): Supervision, Setup, Facilitate positioning Toileting Intervention/Details: Transferred to and from [facility] with min Ax2 and stood with min Ax2 andrequired total assist for magdaleno care Extremity Assessments: [...] approx 4-5 min prior to transfer to stand.Required initial min A progressing to CGA to SBA once hips positioned forward EOB Standing Balance Static Standing-Level of Assistance: Minimum assistance, 2-person assist Standing-Balance Support: Gait belt, Hand-held assist Skilled Rationale: Verbal cues, Tactile cues Standing Balance Skilled Intervention/Details: Pt completed static standing at EOB/[facility] with min Ax2 Neuro: Sensation Overall Sensation: Intact Gross Coordination Gross Coordination: bilat UE intact Skin and Edema: Mobility Assessment: Supine to Sit Mobility [place] Level: Supine->Sit: moderate assist (50% patient effort) Physical Assist: Supine->Sit: 2 person assist Bed Features/Set-up: Supine->Sit: Head of bed elevated Skilled Rationale: Verbal cues Skilled Intervention/Details: Supine->Sit: step by step sequencing cues, increased time, assist at trunk and hips Transfer Assessment: Sit to Stand Transfer [place] Level: Sit->Stand: minimum assist (75% patient effort) Physical Assist: Sit->Stand: 2 person assist Assistive Device: Sit->Stand: gait belt, hand held assist Skilled Rationale: Verbal cues, Tactile cues, Full extension to upright positioning/posture Skilled Intervention/Details: Sit->Stand: Completed x1 from EOB, x1 from [facility], and x1 from recliner. Bilat arm in arm, tactile cues at hips and cues for full upright posture Bed-Chair Transfer [place] Level: Bed<->Chair: moderate assist (50% patient effort) [...] to left. Functional Mobility: Outcome Score(s): CURRENT [facility] Daily Activity Inpatient Short Form Putting on/Taking Off Lower Body Clothin - Total Assistance Bathin - A Lot of Assistance Toiletin - Total Assistance Putting on/Taking Off Upper Body Clothin - A Little Assistance Groomin - A Little Assistance Eatin - No Assistance CURRENT [facility] Activity Raw Score: 14 CURRENT [facility] Activity Functional Limitation/Modifier: 59.67% Currently Impaired in Daily Activity- CK Assessment & Plan: Patient was admitted for slurred speech/word-finding difficulty and seen for therapy evaluation related to balance, strength, activity tolerance affecting I in ADL/IADLs. Exam findings include impairments in: balance, endurance, pain, posture, strength, transfers. Theseimpairments contribute to occupational performance limitations including bathing, [...] needed for improved ability to safely complete self- care activities. Outcome: Ongoing Problem: OT - Transfers Goal: Transfers Sit/Stand - Patient will demonstrate good safety awareness during sit to/from standfunctional transfer with minimal assistance and front- wheeled walker to demonstrate safe functionaltransfers. Outcome: Ongoing Problem: OT - Balance Goal: Balance - Standing - Patient will perform 5 minutes of functional task in standing with minimal assistance and fair balance to promote safety and improved balance required for self-care activities. Outcome: Ongoing Problem: OT - Endurance Goal: Endurance Functional Mobility - Patient will complete distance needed to access restroom withww and min A for improved tolerance to [...] simultaneous billable skilled care was necessary due tomedical complexity and functional deficits Other discipline: PT Rationale for need to co-eval/treat: cognition, postural control OT Evaluation Complexity Occupational Profile and Client History: Moderate - expanded history Assessment of Occupational Performance: Moderate (3-5 performance deficits) Clinical Decision/Performance Deficits: Moderate (detailed assessments w/several treatment options) Time In: 944 Time Out: 1014 Total Visit Time: 29 [...] represents the current Occupational Therapy Discharge Summary. * Angel Melendrez MD - 11/09/2024 8:36 AM EDT [facility] Medicine Daily Progress Note Patient: Sarah Mcguire, [...] Weight PHYSICAL EXAM Gen: A, A, NAD, SHOSHONE-BANNOCK ENT: MMM Resp: CTA & P bilat, normal effort Cardio: RRR, normal S1, S2, No TRISTAN GI: S/NT/ND, NABS Psych: Ox3, appropriate affect and cognition DATA REVIEW WBC/Hgb/Hct/Plts: 6.17/10.4/28.5/182 (11/10 335) Na/K+/Phos/Mg/Ca: 133/4.2/3.6/1.9/-- (11/10 335) Bun/Creat/Cl/CO2/Glucose: 20/0.97/100/26/110 (11/10 335) Ptt/Pt/Inr: 31.6/14.0/1.1 (11/10 335) * KEY Rivera - 11/07/2024 8:23 PM EDT 11/07/242022 Social Work Screenings Screening patient has qualified for Trauma Patient appropriate for screening? No - altered mental status JEREMI Keith, CLASSIFICATION AND TREATMENT DIRECTOR-S [facility], Emergency Dept. * МАРИЯ Pete - 11/07/2024 1:44 PM EDT Trauma Response Per EMS ([facility]), patient is Sarah Mcguire 41 Family is not present. EMS states daughter is en route. Pastoral presence provided. Rev. Abraham Stokes M.Div., [place], [facility] [phone] (office) Chaplains are available 27/12 by paging [phone]. 11/07/24 1315 Clinical Encounter Type Visited With Health Care Provider;Patient Visit Type Introduction Crisis Visit Trauma Pastoral Time Spent 15 min Referral Automated Page Interventions Provided Active listening;Supportive presence Plan of Care Continue [facility]iting [facility]* Plan of Care - Karen Johnson, PT - 11/12/2024 12:29 PM EDT Problem: PT - General Goals Goal: Supine <-> Sit Transfers - Patient will perform supine to/from sit transfers with minimal assistance and with use of hospital bed features in order to improve functional mobility and safety. Outcome: Progressing Goal: Sit <-> Stand Transfers - Patient will perform sit to/from stand transfers with minimalassistance and least restrictive device in order to improve functional mobility and safety. Outcome: Progressing Goal: Standing Endurance/Balance - Patient will perform standing balance tasks for 5 min with minimal assistance and least restrictive device Outcome: Progressing Goal: Ambulation - Patient will ambulate 50 feet with minimal assistance and least restrictive device to improve ability to safely navigate home and community. Outcome: Progressing [facility] Plan of care note* Plan of Care - Grace Meyer OT - 11/12/2024 11:45 AM EDT Problem: OT - ADLs Goal: Grooming - Patient will complete grooming in standing with minimal assistance for improved ability to safely complete ADLs. Outcome: Progressing Problem: OT - Transfers Goal: Transfers Sit/Stand - Patient will demonstrate good safety awareness during sit to/from standfunctional transfer with minimal assistance and front- wheeled walker to demonstrate safe functionaltransfers. Outcome: Progressing Problem: OT - Balance Goal: Balance - Standing - Patient will perform 5 minutes of functional task in standing with minimal assistance and fair balance to promote safety and improved balance required for self-care activities. Outcome: Progressing Problem: OT - Endurance Goal: Endurance Functional Mobility - Patient will complete distance needed to access restroom withww and min A for improved tolerance to safely complete I/ADL's Outcome: Progressing Problem: OT - Cognition Goal: Safety - Patient will demonstrate good safety awareness during ADL routine with 25% or less cues for accuracy. Outcome: Progressing [facility] Plan of care note* Plan of Care - Shanna Benavides RN - 11/12/2024 9:00 AM EDT Problem: Adult Inpatient Plan of Care Goal: Optimal Comfort and Wellbeing Intervention: Provide Person-Centered Care Flowsheets (Taken 11/12/2024 0859) Trust Relationship/Rapport: care explained emotional support provided empathic listening provided questions answered [facility]06-08-2025 Plan of care note* Plan of Care - Greta Yoder RN - 11/11/2024 7:56 PM EDT Problem: Adult Inpatient Plan of Care Goal: Plan of Care Review Outcome: Progressing Goal: Patient-Specific Goal (Individualized) Outcome: Progressing Goal: Absence of Hospital-Acquired Illness or Injury Outcome: Progressing Goal: Optimal Comfort and Wellbeing Outcome: Progressing Goal: Readiness for Transition of Care Outcome: Progressing Problem: Mobility Impairment Goal: Optimal Mobility [place] and Safety Outcome: Progressing Problem: Communication Impairment Goal: Effective Communication Skills Outcome: Progressing [facility]06-07-2025 Nurse Note* Nursing Notes - Greta Yoder RN - 11/10/2024 5:15 PM EDT Orthostatic vitals obtained per MD order. See [...] (%) 98 % 97 % 98 % [facility]06-07-2025 Plan of care note* Plan of Care - Greta Yoder RN - 11/10/2024 1:50 PM EDT Problem: Adult Inpatient Plan of Care Goal: Plan of Care Review Outcome: Progressing Goal: Patient-Specific Goal (Individualized) Outcome: Progressing Goal: Absence of Hospital-Acquired Illness or Injury Outcome: Progressing Goal: Optimal Comfort and Wellbeing Outcome: Progressing Goal: Readiness for Transition of Care Outcome: Progressing Problem: Mobility Impairment Goal: Optimal Mobility [place] and Safety Outcome: Progressing [facility]06-07-2025 Nurse Note* Nursing Notes - Greta Yoder RN - 11/10/2024 8:40 AM EDT Orthostatic vital signs obtained per MD order. [...] Device room air room air room air [facility]06-06-2025 Plan of care note* Plan of Care - Greta Quinn RN - 11/09/2024 4:26 PM EDT Problem: Adult Inpatient Plan of Care Goal: [...] will perform sit to/from stand transfers with minimalassistance and least restrictive device in order to [...] needed for improved ability to safely complete self- care activities. Outcome: Progressing Problem: OT - Transfers Goal: Transfers Sit/Stand - Patient will demonstrate good safety awareness during sit to/from standfunctional transfer with minimal assistance and front- wheeled walker to demonstrate safe functionaltransfers. Outcome: Progressing Problem: OT - Balance Goal: Balance - Standing - Patient will perform 5 minutes of functional task in standing with minimal assistance and fair balance to promote safety and improved balance required for self-care activities. Outcome: Progressing Problem: OT - Endurance Goal: Endurance Functional Mobility - Patient will complete distance needed to access restroom withww and min A for improved tolerance to safely complete I/ADL's Outcome: Progressing Problem: OT - Cognition Goal: Safety - Patient will demonstrate good safety awareness during ADL routine with 25% or less cues for accuracy. Outcome: Progressing [facility]06-06-2025 Plan of care note* Plan of Care - Karen Johnson, PT - 11/09/2024 10:35 AM EDT Problem: PT - General Goals Goal: Supine <-> Sit Transfers - Patient will perform supine to/from sit transfers with minimal assistance and with use of hospital bed features in order to improve functional mobility and safety. Outcome: Ongoing Goal: Sit <-> Stand Transfers - Patient will perform sit to/from stand transfers with minimalassistance and least restrictive device in order to improve functional mobility and safety. Outcome: Ongoing Goal: Standing Endurance/Balance - Patient will perform standing balance tasks for 5 min with minimal assistance and least restrictive device Outcome: Ongoing Goal: Ambulation - Patient will ambulate 50 feet with minimal assistance and least restrictive device to improve ability to safely navigate home and community. Outcome: Ongoing [facility]06-06-2025 Plan of care note* Plan of Care - Grace Meyer OT - 11/09/2024 10:15 AM EDT Problem: OT - ADLs Goal: Grooming - Patient will complete grooming in standing with minimal assistance for improved ability to safely complete ADLs. Outcome: Ongoing Goal: Toileting - Patient will complete toileting task with moderate assistance and adaptive equipment as needed for improved ability to safely complete self- care activities. Outcome: Ongoing Problem: OT - Transfers Goal: Transfers Sit/Stand - Patient will demonstrate good safety awareness during sit to/from standfunctional transfer with minimal assistance and front- wheeled walker to demonstrate safe functionaltransfers. Outcome: Ongoing Problem: OT - Balance Goal: Balance - Standing - Patient will perform 5 minutes of functional task in standing with minimal assistance and fair balance to promote safety and improved balance required for self-care activities. Outcome: Ongoing Problem: OT - Endurance Goal: Endurance Functional Mobility - Patient will complete distance needed to access restroom withww and min A for improved tolerance to safely complete I/ADL's Outcome: Ongoing Problem: OT - Cognition Goal: Safety - Patient will demonstrate good safety awareness during ADL routine with 25% or less cues for accuracy. Outcome: Ongoing [facility]06-06-[facility]25 Consult note* Jagdish Galindo Jr., MD - 11/09/2024 9:40 AM EDTAssociated Order(s): IP CONSULT TO GERIATRICS Images from the [...] Jagdish Galindo MD PGY-4 Internal Medicine-Pediatrics [facility] Pager #: [phone] Reason for consult - 78 yo F here as level 2 trauma, acute on chronic subdural hematoma - trauma surgery recs for fatmata c/s for co-mx Admission date and reason - 11/08/24, slurred speech/word finding difficulty Primary Service - 6 PCP - Monika Venegas HPI - The history was obtained from patient, [...] level 2 trauma due to concern that thepatient may have fallen with head strike +/- seizure activity. 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 Admitted to the [facility] with neurosurgery consultation, received Kcentra at OSH. Daughter and patient confirm the above information at bedside, adding that the word finding issues have been an ongoing recent problem. 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 Postoperatively, she has become mostly dependant for most of her ADL/IADL (can still fold laundry and make asandwich, but otherwise requires assistance with everything else [...] word finding issue suddenly worsened while at [facility] study as above. She did not note any other neurologic deficits. S States that the noted intracranial hematoma appears to be old (I.e. a prior known hematoma collection from 2022 related to a meningioma resection completed at that time). Of note, daughter also reports that they follow with a non-[facility] instrument repair specialist in their home town, adding that her HR has been muchlower than baseline over the past 2-4 weeks. Medications history reviewed with adult daughter, and she is currently taking amiodarone and apixaban for pAF, previously taking 2.5 mg lisinopril but not currently, currently taking doxazosin for HTN, and carvedilol 12.5 mg BID per her instrument repair specialist. 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 Constitutional: Appears well. SHOSHONE-BANNOCK at baseline, No acute distress. Weight appropriate [...] off Doxazosin and consider other options for BPmanagement. PT/OT consults to evaluate for SNF needs and CM/SW for safe discharge planning. Thank you for allowing us to participate in the care of this interesting patient. Should you have any questions feel free to call the geriatric consult service. Pebbles Gu MD Outside Sales Advertising Executive of Clinical Medicine Geriatric Medicine [phone] [facility] Work Phone: [phone] 181-207506-06-2025 Consult note* Jagdish Galindo Jr., MD - 11/09/2024 9:40 AM EDTAssociated Order(s): IP CONSULT TO GERIATRICS Images from the original note were not included. Geriatric Inpatient Consult Service - New Consult Overall Impression and Plan: 78 yo F with h/o HTN, HLD, pAF on eliquis, large frontoparietal meningioma s/p left frontotemporal resection and flap reconstruction (2022) c/b EDH s/p emergent L frontal craniotomy post op and XRT who presents from [facility] with c/o slurred speech/word-finding difficulty without an [...] Medicine-Pediatrics [facility] Pager #: [phone] Reason for consult - 78 yo F here as level 2 trauma, acute on chronic subdural hematoma - trauma surgery recs for fatmata c/s for co-mx Admission date and reason - 11/08/24, slurred speech/word finding difficulty Primary Service - 6 PCP - Monika Venegas HPI - The history was obtained from patient, [...] level 2 trauma due to concern that thepatient may have fallen with head strike +/- seizure activity. 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 Admitted to the [facility] with neurosurgery consultation, received Kcentra at OSH. Daughter and patient confirm the above information at bedside, adding that the word finding issues have been an ongoing recent problem. 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 Postoperatively, she has become mostly dependant for most of her ADL/IADL (can still fold laundry and make asandwich, but otherwise requires assistance with everything else [...] word finding issue suddenly worsened while at [facility] study as above. She did not note any other neurologic deficits. S States that the noted intracranial hematoma appears to be old (I.e. a prior known hematoma collection from 2022 related to a meningioma resection completed at that time). Of note, daughter also reports that they follow with a non-[facility] instrument repair specialist in their home town, adding that her HR has been muchlower than baseline over the past 2-4 weeks. Medications history reviewed with adult daughter, and she is currently taking amiodarone and apixaban for pAF, previously taking 2.5 mg lisinopril but not currently, currently taking doxazosin for HTN, and carvedilol 12.5 mg BID per her instrument repair specialist. 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 Constitutional: Appears well. SHOSHONE-BANNOCK at baseline, No acute distress. Weight appropriate [...] off Doxazosin and consider other options for BPmanagement. PT/OT consults to evaluate for SNF needs and CM/SW for safe discharge planning. Thank you for allowing us to participate in the care of this interesting patient. Should you have any questions feel free to call the geriatric consult service. Pebbles uG MD Outside Sales Advertising Executive of Clinical Medicine Geriatric Medicine [phone] * Greta Tabares MD - 11/07/2024 4:26 PM EDT TRAUMA SERVICES - TRAUMA H & P Patient Name: Sarah Mcguire 78 y.o. female Date of Evaluation: 11/07/2024 Trauma Attending: Dr. Bailey TEJON: TRAUMA LEVEL: Level 2 Trauma Inter-facility Transfer: Bee Mcguire is a 78 y.o. female transported to [facility] s/p slurred speech and c/f possible head strike earlier this week. Per EMS Slurred speech, unsteady gaitwhile at bible study. PMH intracranial bleed, craniotomy for tumor (2022). 200/60 on EMS arrival. Improved to 170 en route. NIH 1 at OSH but 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 On eliquis at [...] MD; [facility] FLAP MUSCLE/MYOCUTANEOUS/FASCIOCUTANEOUS HEAD OR NECK Left 11/16/2022 Laterality: Left; Surgeon: Saray Key MD, PhD; Location: [facility] MAIN OR GRAFT SKIN FULL THICKNESS SCALP (FTSG) Left 11/16/2022 Laterality: Left; Surgeon: Saray Key MD, PhD; Location[facility] MAIN OR CRANIOPLASTY FOR SKULL DEFECT Left 11/16/2022 Laterality: Left; Surgeon: Saray Key MD, PhD; Location[facility]T MAIN OR EXCISION SKULL LESION TUMOR W/ CRANIECTOMY W/ OR W/O GRAFT Left 10/13/2022 Laterality: Left; Surgeon: Ernie Kincaid MD; Location: [facility]T MAIN OR BREAST REDUCTION 1996 BREAST LUMPECTOMY Bilateral HEMORRHOIDECTOMY HYSTERECTOMY There is [...] Resp 23 SpO2 99% Smoking Status Never O2Sat (%): [97 %-99 %] 99 % O2 [...] Time Discussed with Trauma Attending: Dr. Leo Zazuetapraful Mcguire is a 78 y.o. s/p slurred [...] of fluid, isointense with a heterogenous component thatcould be concerning for subacute epidural blood, and [...] Admission: Handoff Called to Fellow - Pager [phone] [place] [phone] If there are any questions or concerns, please see the treatment team or page the Consult Resident #[id number] (Web Exchange, search Acute Care Surgery > [...] the patient, available family, medical records, or collection support specialist. I agree with resident exam, assessment and [...] in the bathroom while washing her hair inthe sink before bible study. Patient is on [...] Loss Anemia and Traumatic SDH/EDH Without Loss ofConsciousness. See details in my documentation below. Diagnosis/Plan: # concern for epidural hematoma - NSTY consulted - rCTH stable, keppra BID, spot EEG, INR < 1.4 and PLT > 100, SBP < 160 Disposition from the ED: Medicine with NSGY C/S and ACS tertiary. Given the patient's age > 64, recommend geriatric consult. Signed Smiley Bailey MD MPH electrical accessories ii assembler Division of Trauma, Critical Care, Burn * Ernie Bowens MD - 11/07/2024 2:24 PM EDTAssociated Order(s): IP CONSULT TO SURGERY - NEURO [...] altered ambulation, changes in vision, difficulty swallowing, changesin speech, changes in bowel/bladder habits, or other [...] MD; [facility] OR FLAP MUSCLE/MYOCUTANEOUS/FASCIOCUTANEOUS HEAD OR NECK Left 11/16/2022 Laterality: Left; [...] sensation intact in all 3 branches. Facial movementintact and symmetric. SCM/Trap strength 5/5 bilaterally. Tongue [...] the dural layer, no midline shift CTH / 6 hour interval scan - stable without [...] later [facility] observed on O[facility] CTH in the context ofword find difficulties at [facility] study. OSH CTH showed a [...] < 160 Staff: Dr. Kincaid Covering: NS1 ([id number]) ## neurosurgery coverage changes at 0530/1730; if [...] 11/08/2024 9:48 AM EDT [facility] Consult note* Jagdish Galindo Jr., MD - 11/09/2024 9:40 AM EDTAssociated Order(s): IP CONSULT TO GERIATRICS Images from the [...] Jagdish Galindo MD PGY-4 Internal Medicine-Pediatrics [facility] Pager #: [phone] Reason for consult - 78 yo F here as level 2 trauma, acute on chronic subdural hematoma - trauma surgery recs for fatmata c/s for co-mx Admission date and reason - 11/08/24, slurred speech/word finding difficulty Primary Service - 6 PCP - Monika Venegas HPI - The history was obtained from patient, [...] level 2 trauma due to concern that thepatient may have fallen with head strike +/- seizure activity. 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 Admitted to the [facility] with neurosurgery consultation, received Kcentra at OSH. Daughter and patient confirm the above information at bedside, adding that the word finding issues have been an ongoing recent problem. 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 Postoperatively, she has become mostly dependant for most of her ADL/IADL (can still fold laundry and make asandwich, but otherwise requires assistance with everything else [...] [facility]. She did not note any other neurologic deficits. S States that the noted intracranial hematoma appears to be old (I.e. a prior known hematoma collection from 2022 related to a meningioma resection completed at that time). Of note, daughter also reports that they follow with a non-[facility] instrument repair specialist in their home town, adding that her HR has been muchlower than baseline over the past 2-4 weeks. Medications history reviewed with adult daughter, and she is currently taking amiodarone and apixaban for pAF, previously taking 2.5 mg lisinopril but not currently, currently taking doxazosin for HTN, and carvedilol 12.5 mg BID per her instrument repair specialist. 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 Constitutional: Appears well. SHOSHONE-BANNOCK at baseline, No acute distress. Weight appropriate [...] off Doxazosin and consider other options for BPmanagement. PT/OT consults to evaluate for SNF needs and CM/SW for safe discharge planning. Thank you for allowing us to participate in the care of this interesting patient. Should you have any questions feel free to call the geriatric consult service. Pebbles Gu MD Outside Sales Advertising Executive of Clinical Medicine Geriatric Medicine [phone] * Greta Tabares MD - 11/07/2024 4:26 PM EDT TRAUMA SERVICES - TRAUMA H & P Patient Name: Sarah Mcguire 78 y.o. female Date of Evaluation: 11/07/2024 Trauma Attending: Dr. Bailey TEJON: TRAUMA LEVEL: Level 2 Trauma Inter-facility Transfer: No Sarah Mcguire is a 78 y.o. female transported to [facility] s/p slurred speech and c/f possible head strike earlier this week. Per EMS Slurred speech, unsteady gaitwhile at bible study. PMH intracranial bleed, craniotomy for tumor (2022). 200/60 on EMS arrival. Improved to 170 en route. NIH 1 at OSH but 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 On eliquis at [...] MD; [facility] OR FLAP MUSCLE/MYOCUTANEOUS/FASCIOCUTANEOUS HEAD OR NECK Left 11/16/2022 Laterality: Left; [...] Resp 23 SpO2 99% Smoking Status Never O2Sat (%): [97 %-99 %] 99 % O2 [...] of fluid, isointense with a heterogenous component thatcould be concerning for subacute epidural blood, and [...] Admission: Handoff Called to Fellow - Pager [phone] [place] [phone] If there are any questions or concerns, please see the treatment team or page the Consult Resident #[id number] (Web Exchange, search Acute Care Surgery > [...] the patient, available family, medical records, or collection support specialist. I agree with resident exam, assessment and [...] in the bathroom while washing her hair inthe sink before bible study. Patient is on [...] Loss Anemia and Traumatic SDH/EDH Without Loss ofConsciousness. See details in my documentation below. Diagnosis/Plan: # concern for epidural hematoma - NSTY consulted - rCTH stable, keppra BID, spot EEG, INR < 1.4 and PLT > 100, SBP < 160 Disposition from the ED: Medicine with NSGY C/S and ACS tertiary. Given the patient's age > 62, recommend geriatric consult. Signed Smiley Bailey MD MPH electrical accessories ii assembler Division of Trauma, Critical Care, Burn * Ernie Bowens MD - 11/07/2024 2:24 PM EDTAssociated Order(s): IP CONSULT TO SURGERY - NEURO [...] altered ambulation, changes in vision, difficulty swallowing, changesin speech, changes in bowel/bladder habits, or other [...] CRANIECTOMY/CRANIOTOMY SUPRATENTORIAL Left 11/24/2022 Laterality: Left; Surgeon: hCava Salazar MD; [facility] MA[facility] OR EXCISION SKULL LESION TUMOR W/ CRANIECTOMY W/ OR W/O GRAFT Left 11/16/2022 Laterality: Left; Surgeon: Ernie Kincaid MD; Location: [facility] MAIN OR EXCISION BRAIN TUMOR BY CRANIOTOMY Left 11/16/2022 Laterality: Left; Surgeon: Ernie Kincaid MD; Location: [facility] MA[facility] OR FLAP MUSCLE/MYOCUTANEOUS/FASCIOCUTANEOUS HEAD OR NECK Left 11/16/2022 Laterality: Left; Surgeon: Saray Key MD, PhD; Location[facility]IN OR GRAFT SKIN FULL THICKNESS SCALP (FTSG) Left 11/16/2022 Laterality: Left; Surgeon: Saray Key MD, PhD; Location: [facility] MAIN OR CRANIOPLASTY FOR SKULL DEFECT Left 11/16/2022 Laterality: Left; Surgeon: Sarya Key MD, PhD; Location: [facility] [...] sensation intact in all 3 branches. Facial movementintact and symmetric. SCM/Trap strength 5/5 bilaterally. Tongue [...] 6.74/10.5/33/169 (11/07 1254-11/07 1319) Na/K+/Phos/Mg/Ca: 128/4.3/--/--/-- (11/07 131) Bun/Creat/Cl/CO2/Glucose: --/--/--/--/102 (11/07 131) Recent Labs 11/07/24 1254 PT 15.8* INR [...] observed on OSH CTH in the context ofword find difficulties at bible study. OSH CTH [...] < 160 Staff: Dr. Kincaid Covering: NS1 ([id number]) ## neurosurgery coverage changes at 0530/1730; if [...] 11/08/2024 9:48 AM EDT [facility] Discharge instructions* Discharge Instructions* Shannon Werner RN - 11/09/2024 9:18 AM EDT Patient Experience Survey Reminder You may receive a survey in the mail within a few weeks regarding your hospitalization. This helps us to improve the care and services we provide at [facility]. We truly appreciate you taking the time to fill this out. We particularly welcome any specific comments you may have (good or bad!) [facility] so that we may use them to continue to strive towards excellence for our patients. documented [facility] this [facility] Discharge instructions* Discharge Instructions* Shannon Werner RN - 11/09/2024 9:18 AM EDT Patient Experience Survey Reminder You may receive a survey in the mail within a few weeks regarding your hospitalization. This helps us to improve the care and services we provide at [facility]. We truly appreciate you taking the time to fill this out. We particularly welcome any specific comments you may have (good or bad!) regarding [facility] so that we may use them to continue to strive towards excellence for our patients. documented in this encounterOS[facility] Procedure note* FABY Jacques - 11/09/2024 8:56 AM EDTAssociated Order(s): GENERAL PROCEDURE Inpatient routine EEG report: History: 78 yo F with h/o HTN, HLD, pAF on eliquis, 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 Indication: evaluate for possible seizure Technical Description: This is a 21-channel digital EEG recording with time- locked video and single-channel electrocardiogram. Electrodes are placed according to the 10 to 20 International System. . The patient was monitored continuously by EEG technicians by video and EEG recording was reviewed int ermittently with annotations to the EEG record made [...] II sleep architecture was not present. Background wascomprised of continuous left hemispheric polymorphic theta slow [...] this period of recording. Brittaney Ferraro MD Outside Sales Advertising Executive Department of Neurology and Epilepsy [facility] Work Phone: [phone] Procedure note* FABY Jacques - 11/09/2024 8:56 AM EDTAssociated Order(s): GENERAL PROCEDURE Inpatient routine EEG report: History: 78 yo F with h/o HTN, HLD, pAF on eliquis, 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 Indication: evaluate for possible seizure Technical Description: This is a 21-channel digital EEG recording with time- locked video and single-channel electrocardiogram. Electrodes are placed according to the 10 to 20 International System. . The patient was monitored continuously by EEG technicians by video and EEG recording was reviewed int ermittently with annotations to the EEG record made [...] II sleep architecture was not present. Background wascomprised of continuous left hemispheric polymorphic theta slow [...] this period of recording. Brittaney Ferraro MD Outside Sales Advertising Executive Department of Neurology and Epilepsy [facility] documented in this encounterOS[facility] Procedure note* FABY Jacques - 11/09/2024 8:56 AM EDTAssociated Order(s): GENERAL PROCEDURE Inpatient routine EEG report: History: 78 yo F with h/o HTN, HLD, pAF on eliquis, 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 Indication: evaluate for possible seizure Technical Description: This is a 21-channel digital EEG recording with time- locked video and single-channel electrocardiogram. Electrodes are placed according to the 10 to 20 International System. . The patient was monitored continuously by EEG technicians by video and EEG recording was reviewed int ermittently with annotations to the EEG record made [...] II sleep architecture was not present. Background wascomprised of continuous left hemispheric polymorphic theta slow [...] this period of recording. Brittaney Ferraro MD Outside Sales Advertising Executive Department of Neurology and Epilepsy [facility] documented in this encounterOSU [facility] Plan of care note* Plan of Care - Andrew Chopra MD - 11/09/2024 6:20 AM EDT Neurosurgery Update: Consulted for fluid under craioplasty. Imaging reviewed which revealed stable extradural fluid under cranioplasty, as expected after procedure. No neurosurgical intervention at this time. - for question of seizures or intermittent altered mental status, recommend neurology evaluation ifindicated. Otherwise can continue Keppra for 1 week total. - No neurosurgery follow up needed. - Neurosurgery will sign-off. Please call with questions. Andrew Chopra MD, Neurosurgery NS1 ([id number]) [facility] Work Phone: [phone]) 254-127806-05-2025 Plan of care note* Plan of Care - Joce Calvo RN - 11/08/2024 9:06 PM EDT Problem: Adult Inpatient Plan of Care Goal: Plan of Care Review Outcome: Progressing Goal: Patient-Specific Goal (Individualized) Outcome: Progressing Goal: Absence of Hospital-Acquired Illness or Injury Outcome: Progressing Goal: Optimal Comfort and Wellbeing Outcome: Progressing Goal: Readiness for Transition of Care Outcome: Progressing [facility]06-05-2025 Nurse Note* Nursing Notes - Shelby Mae RN - 11/08/2024 4:46 PM EDT Images from the original note were not included. On admission to [facility], from ED a dual RN initial assessment of skin condition was performed by MICAH Rivera and Teresa Long RN. Skin Assessment: Skin not within defined limits. - Photo taken and uploaded into notes in IHIS: Yes Brent Score: 16 LDA Added:No Shelby Mae RN Right heel blanchable [facility]06-05-2025 History and physical note* JESSIE [facility] - 11/08/2024 2:23 PM EDT Hospital Medicine Admission History & Physical Patient: Sarah Mcguire, 1945, [id number] Physician: JESSIE [facility], Attending Physician Date of face to face [...] of fluid under the cranioplasty but above thedural layer. No midline shift - Repeat CT [...] health, her friends noted her speech/word finding difficultywas much worse at her bible study. She also reports difficulty walking (feet feel like lead on thefloor). Denies any falls, headaches, extremity weakness, numbness or facial weakness. Has intermittent lightheadedness but no chest pain, SOB, n/v, abd pain or changes in bowel/urinary habits (otherthan occasional constipation) NIH 1 at OSH but 0 for medflight. NSGY consulted here and repeat CT head done - suspect possible subacute on chronic hematoma, but nointervention recommended. K centra given at OSH. Suspect seizure contributed to current episode andstarted on IV keppra BID. Plan to admit to [facility]. REVIEW OF SYSTEMS Constitutional (- fever, [...] MD; [facility] FLAP MUSCLE/MYOCUTANEOUS/FASCIOCUTANEOUS HEAD OR NECK Left 11/16/2022 Laterality: Left; [...] REDUCTION 1997 BREAST LUMPECTOMY Bilateral HEMORRHOIDECTOMY HYSTERECTOMY SOCIAL HISTORY [...] sounds. Cardio: RRR, normal S1, S2, No TRISTAN GI: non distended, soft, non tender, normal [...] no ST segment changes Signed, JESSIE [facility] Outside Sales Advertising Executive of Internal Medicine Division of Hospital Medicine [facility]06-05-2025 History and physical note* JESSIE [facility] - 11/08/2024 2:23 PM EDT Hospital Medicine Admission History & Physical Patient: Sarah Mcguire, 1945, [id number] Physician: JESSIE [facility], Attending Physician Date of face to face [...] of fluid under the cranioplasty but above thedural layer. No midline shift - Repeat CT [...] health, her friends noted her speech/word finding difficultywas much worse at her bible study. She also reports difficulty walking (feet feel like lead on thefloor). Denies any falls, headaches, extremity weakness, numbness or facial weakness. Has intermittent lightheadedness but no chest pain, SOB, n/v, abd pain or changes in bowel/urinary habits (otherthan occasional constipation) NIH 1 at OSH but 0 for medflight. NSGY consulted here and repeat CT head done - suspect possible subacute on chronic hematoma, but nointervention recommended. K centra given at OSH. Suspect seizure contributed to current episode andstarted on IV keppra BID. Plan to admit to [facility]. REVIEW OF SYSTEMS Constitutional (- fever, [...] MD; Location: [facility] OR FLAP MUSCLE/MYOCUTANEOUS/FASCIOCUTANEOUS HEAD OR NECK Left 11/16/2022 Laterality: Left; [...] REDUCTION 1997 BREAST LUMPECTOMY Bilateral HEMORRHOIDECTOMY HYSTERECTOMY SOCIAL HISTORY [...] sounds. Cardio: RRR, normal S1, S2, No TRISTAN GI: non distended, soft, non tender, normal [...] no ST segment changes Signed, JESSIE [facility] Outside Sales Advertising Executive of Internal Medicine Division of Hospital Medicine [facility] documented in this encounterOS[facility]06-[facility] History and physical note* JESSIE [facility] - 11/08/2024 2:23 PM EDT Hospital Medicine Admission History & Physical Patient: Sarah Mcguire, 1945, [id number] Physician: JESSIE [facility], Attending Physician Date of face to face [...] of fluid under the cranioplasty but above thedural layer. No midline shift - Repeat CT [...] health, her friends noted her speech/word finding difficultywas much worse at her bible study. She also reports difficulty walking (feet feel like lead on thefloor). Denies any falls, headaches, extremity weakness, numbness or facial weakness. Has intermittent lightheadedness but no chest pain, SOB, n/v, abd pain or changes in bowel/urinary habits (otherthan occasional constipation) NIH 1 at OSH but 0 for medflight. NSGY consulted here and repeat CT head done - suspect possible subacute on chronic hematoma, but nointervention recommended. K centra given at OSH. Suspect seizure contributed to current episode andstarted on IV keppra BID. Plan to admit to [facility]. REVIEW OF SYSTEMS Constitutional (- fever, [...] MD; Location[facility] OR FLAP MUSCLE/MYOCUTANEOUS/FASCIOCUTANEOUS HEAD OR NECK Left 11/16/2022 Laterality: Left; [...] REDUCTION 1997 BREAST LUMPECTOMY Bilateral HEMORRHOIDECTOMY HYSTERECTOMY SOCIAL HISTORY [...] Temp: SpO2: 100% O2 Device: room air (11/07/241844) Gen: Comfortable appearing, no apparent distress. Noted L sided skull deformity c/w prior craniotomy hx Eyes: Anicteric Neck: No visible JVD ENT: MMM Resp: normal respiratory effort, CTA & P bilaterally, no other adventitious sounds. Cardio: RRR, normal S1, S2, No TRISTAN GI: non distended, soft, non tender, normal [...] no ST segment changes Signed, JESSIE [facility] Outside Sales Advertising Executive of Internal Medicine Division of Hospital Medicine [facility] documented in this encounterOSHock[facility]06-05-[facility] Emergency department Note* Ann Diaz RN - 11/08/2024 12:07 PM EDT Pt has been germania- HR 42-49. Dr Johnson aware. No intervention as long at pt is saturating appropriately [facility]06-05-2025 Emergency department Note* Ann Diaz RN - 11/08/2024 12:07 PM EDT Pt has been germania- HR 42-49. Dr Johnson aware. No intervention as long at pt is saturating appropriately * Ann Diaz RN - 11/08/2024 8:[address] Johnson, pt is allowed to eat. Pt given breakfast. Pt passed bedside swallow. * Nalini Barnett RN - 11/08/2024 6:15 AM EDT Pt incontinent at this time. Total linen change, new brief and purwick in place. * Tiff Rodriguez RN - 11/07/2024 6:05 PM EDT Pt states dull pain across forehead that is new, no changes in neuro exam. Md notified * Minna Swenson RN - 11/07/2024 1:31 PM EDT Transport to CT on monitor with RN, Resident. * Cindy Coffey MD - 11/07/2024 1:30 PM EDT eMERGENCY dEPARTMENT eNCOUnter Patient: Sarah Mcguire : 1945 MR#: [id number] Primary Care Provider: Monika Venegas Date of Exam: 11/07/2024 CHIEF COMPLAINT No chief complaint on file. HPI Sarah Mcguire is a 78 y.o. 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 Brief History: Patient had slurred speech, unsteady gait while at [facility] study. EMS report patient hit her head at faucet when trying to wash her hair, LKW 10.21am. Blood pressure was 200/60 on EMS arrival. Improved to 170 en route. NIH 1 at OSH [address] at OSH showed acute on chronicsubdural L pariental. 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 Cindy Coffey MD Resident 11/07/24 0132 * Lopez Farnsworth RN - 11/07/2024 1:30 PM EDT Bed: E021 Expected date: Expected time: Means of arrival: Comments: 34 * Octavio Pinon [facility] - 11/07/2024 1:28 PM EDT Department of Pharmacy - Trauma Note Patient: Sarah Mcguire Room/Bed: E034/E034 Level 2 trauma s/p Fall with SDH found at OSH Medications received prior to arrival: Balfaxar 2500 units @1130 Prophylactic Antibiotics: n/a Tetanus: N/A Patient is on eliquis. Please feel free to contact me with any further questions. Name: Octavio Pinon [facility] Phone #: [phone] Date/Time: 11/07/2024 1:29 PM * Ignacio De La Garza Sr., MD, PhD - 11/07/2024 1:28 PM EDT ED ATTENDING NOTE Please see resident notes [...] had a craniotomy but other than that knowndeformity that appears chronic there were no reported signs of head trauma. PERTINENT EXAM: Vital Signs: BP 200/70 Pulse 64 Temp 98.6 F (37 C) (Oral) Resp 20 SpO2 98% Smoking StatusNever Catina Coma Scale Best Eye Response: 4-->(E4) spontaneous Best Motor Response: 6-->(M6) obeys commands Best Verbal Response: 5-->(V5) oriented Alpha Coma Scale Score: 15 Primary Assessment Airway [...] EKG Interpretation Rhythm: normal sinus Rate: normal [place]: normal Ectopy: none Conduction: normal ST Segments: [...] 0.69 (L) 1.16 - 3.51 K/uL Abs [place] 0.62 0.22 - 0.87 K/uL Abs [...] in addition to repeat CT head to evaluatefor progression. Will start nicardipine for blood pressure [...] La Garza Sr., MD, PhD 11/07/24 1628 * Minna Swenson RN - 11/07/2024 1:25 PM EDT Cardene 5 mg/hr started now. * KEY Fuentes - 11/07/2024 1:18 PM EDT SW responded to Level 2 Trauma brought in by [facility] after patient fell. Emergency Contacts: Alexsandra, child [phone] Per EMS patient's daughter is en route to [facility]. SW will be available for support as needed while patient is in the ED. Edy Constantino MSW, ANIMAL HUSBANDRY TECHNICIAN Medical Social Work * Minna Swenson RN - 11/07/2024 1:05 PM EDT Patient arrives to trauma bay now. [facility], [facility] PMH intracranial bleed, craniotomy for tumor (2022). 200/60 on EMS arrival. Improved to 170 en route. NIH 1 at OSH 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 * Minna Swenson RN - 11/07/2024 12:53 PM EDT Patient roomed for ordering purposes. * Nalini Barnett RN - 11/07/2024 11:40 AM EDT Neuro surg provider paged at this time to clarify BP parameters at this time. * Nalini Barnett RN - 11/07/2024 11:00 AM EDT Neuro surg provider paged at this time to clarify BP parameters documented in this encounterOS[facility] Emergency department Note* Ann Diaz RN - 11/08/2024 12:07 PM EDT Pt has been germania- HR 42-49. Dr Johnson aware. No intervention as long at pt is saturating appropriately * Ann Diaz RN - 11/08/2024 8:[address] Johnson, pt is allowed to eat. Pt given breakfast. Pt passed bedside swallow. * Nalini Barnett RN - 11/08/2024 6:15 AM EDT Pt incontinent at this time. Total linen change, new brief and purwick in place. * Tiff Rodriguez RN - 11/07/2024 6:05 PM EDT Pt states dull pain across forehead that is new, no changes in neuro exam. Md notified * Minna Swenson RN - 11/07/2024 1:31 PM EDT Transport to CT on monitor with RN, Resident. * Cindy Coffey MD - 11/07/2024 1:30 PM EDT eMERGENCY dEPARTMENT eNCOUnter Patient: Sarah Mcguire : 1945 MR#: [id number] Primary Care Provider: Monika Venegas Date of Exam: 11/07/2024 CHIEF COMPLAINT No chief complaint on file. HPI Sarah Mcguire is a 78 y.o. 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 Brief History: Patient had slurred speech, unsteady gait while at [employer] study. EMS report patient hit her head at faucet when trying to wash her hair, LKW 10.21am. Blood pressure was 200/60 on EMS arrival. Improved to 170 en route. NIH 1 at OSH [address] at OSH showed acute on chronicsubdural L pariental. 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 Cindy Coffey MD Resident 11/07/24 1654 * Lopez Farnsworth RN - 11/07/2024 1:30 PM EDT Bed: E021 Expected date: Expected time: Means of arrival: Comments: 34 * Octavio Pinon [facility] - 11/07/2024 1:28 PM EDT Department of Pharmacy - Trauma Note Patient: Sarah Mcguire Room/Bed: E034/E034 Level 2 trauma s/p Fall with SDH found at OSH Medications received prior to arrival: Balfaxar 2500 units @1130 Prophylactic Antibiotics: n/a Tetanus: N/A Patient is on eliquis. Please feel free to contact me with any further questions. Name: Octavio Pinon RPH Phone #: [phone] Date/Time: 11/07/2024 1:29 PM * Ignacio De La Garza Sr., MD, PhD - 11/07/2024 1:28 PM EDT ED ATTENDING NOTE Please see resident notes [...] had a craniotomy but other than that knowndeformity that appears chronic there were no reported signs of head trauma. PERTINENT EXAM: Vital Signs: BP 200/70 Pulse 64 Temp 98.6 F (37 C) (Oral) Resp 20 SpO2 98% Smoking StatusNever Catina Coma Scale Best Eye Response: 4-->(E4) spontaneous Best Motor Response: 6-->(M6) obeys commands Best Verbal Response: 5-->(V5) oriented Alpha Coma Scale Score: 15 Primary Assessment Airway [...] EKG Interpretation Rhythm: normal sinus Rate: normal [place]: normal Ectopy: none Conduction: normal ST Segments: [...] 0.69 (L) 1.16 - 3.51 K/uL Abs [place] 0.62 0.22 - 0.87 K/uL Abs [...] in addition to repeat CT head to evaluatefor progression. Will start nicardipine for blood pressure [...] La Garza Sr., MD, PhD 11/07/24 1628 * Minna Swenson RN - 11/07/2024 1:25 PM EDT Cardene 5 mg/hr started now. * KEY Fuentes - 11/07/2024 1:18 PM EDT SW responded to Level 2 Trauma brought in by [facility] after patient fell. Emergency Contacts: Alexsandra, child [phone] Per EMS patient's daughter is en route to [facility]. SW will be available for support as needed while patient is in the ED. Edy Constantino MSW, ANIMAL HUSBANDRY TECHNICIAN Medical Social Work * Minna Swenson RN - 11/07/2024 1:05 PM EDT Patient arrives to trauma bay now. Slurred speech, unsteady gait while at [facility] study. PMH intracranial bleed, craniotomy for tumor (2022). 200/60 on EMS arrival. Improved to 170 en route. NIH 1 at OSH but 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 * Minna Swenson RN - 11/07/2024 12:53 PM EDT Patient roomed for ordering purposes. * Nalini Barnett RN - 11/07/2024 11:40 AM EDT Neuro surg provider paged at this time to clarify BP parameters at this time. * Nalini Barnett RN - 11/07/2024 11:00 AM EDT Neuro surg provider paged at this time to clarify BP parameters documented in this encounterOS[facility] Emergency department Note* Ann Diaz RN - 11/08/2024 8:[address] Johnson, pt is allowed to eat. Pt given breakfast. Pt passed bedside swallow. [facility] Emergency department Note* Nalini Barnett RN - 11/08/2024 6:15 AM EDT Pt incontinent at this time. Total linen change, new brief and purwick in place. [facility]06-[facility] Emergency department Note* Tiff Rodriguez RN - 11/07/2024 6:05 PM EDT Pt states dull pain across forehead that is new, no changes in neuro exam. Md notified [facility]06-[facility] Consult note* Greta Tabares MD - 11/07/2024 4:26 PM EDT TRAUMA SERVICES - TRAUMA H & P Patient Name: Sarah Mcguire 78 y.o. female Date of Evaluation: 11/07/2024 Trauma Attending: Dr. Bailey TEJON: TRAUMA LEVEL: Level 2 Trauma Inter-facility Transfer: No Sarah Mcguire is a 78 y.o. female transported to [facility] s/p slurred speech and c/f possible head strike earlier this week. Per EMS Slurred speech, unsteady gaitwhile at bible study. PMH intracranial bleed, craniotomy for tumor (2022). 200/60 on EMS arrival. Improved to 170 en route. NIH 1 at OSH but 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 On eliquis at [...] MD; Location: [facility]IN OR FLAP MUSCLE/MYOCUTANEOUS/FASCIOCUTANEOUS HEAD OR NECK Left 11/16/2022 Laterality: Left; [...] Resp 23 SpO2 99% Smoking Status Never O2Sat (%): [97 %-99 %] 99 % O2 [...] of fluid, isointense with a heterogenous component thatcould be concerning for subacute epidural blood, and [...] Admission: Handoff Called to Fellow - Pager [phone] [employer] [phone] If there are any questions or concerns, please see the treatment team or page the Consult Resident #[id number] (Web Exchange, search Acute Care Surgery > [...] the patient, available family, medical records, or collection support specialist. I agree with resident exam, assessment and [...] in the bathroom while washing her hair inthe sink before bible study. Patient is on [...] Loss Anemia and Traumatic SDH/EDH Without Loss ofConsciousness. See details in my documentation below. Diagnosis/Plan: # concern for epidural hematoma - NSTY consulted - rCTH stable, keppra BID, spot EEG, INR < 1.4 and PLT > 100, SBP < 160 Disposition from the ED: Medicine with NSGY C/S and ACS tertiary. Given the patient's age > 64, recommend geriatric consult. Signed Smiley Bailey MD MPH electrical accessories ii assembler Division of Trauma, Critical Care, Burn [facility] Work Phone: 1(297) 757-167706-04-2025 Consult note* Ernie Bowens MD - 11/07/2024 2:24 PM EDTAssociated Order(s): IP CONSULT TO SURGERY - NEURO [...] altered ambulation, changes in vision, difficulty swallowing, changesin speech, changes in bowel/bladder habits, or other [...] MD; Location[facility] OR FLAP MUSCLE/MYOCUTANEOUS/FASCIOCUTANEOUS HEAD OR NECK Left 11/16/2022 Laterality: Left; [...] sensation intact in all 3 branches. Facial movementintact and symmetric. SCM/Trap strength 5/5 bilaterally. Tongue [...] stimulation throughout. Labs WBC/Hgb/Hct/Plts: 6.74/10.5/33/169 (11/07 1254-11/07 1318) Na/K+/Phos/Mg/Ca: 128/4.3/--/--/-- (11/07 1318) Bun/Creat/Cl/CO2/Glucose: --/--/--/--/102 (11/07 1318) Recent Labs 11/07/24 1254 PT 15.8* INR [...] the dural layer, no midline shift CTH / 6 hour interval scan - stable without [...] observed on OSH CTH in the context ofword find difficulties at bible study. OSH CTH [...] < 160 Staff: Dr. Kincaid Covering: NS1 ([id number]) ## neurosurgery coverage changes at 30/1730; if 0530 or 1730 has passed since original consult note placed, please page covering pager above ## Complexity. Hyponatremia - Secondary to fluid shifts. Monitor. Hypocalcemia - Continue to monitor and replete. Wound Documentation Any conditions listed below are present on admission unless otherwise specified. . Cosigned by Ernie Kincaid MD at 11/08/2024 9:48 AM EDT [facility] Work Phone: 1(521) 673-368606-04-2025 NoteAcute Coronary Syndrome (ACS): Initial Evaluation and Management: [email or web address]/ebm/Documents/Guidelines/Acute%20Coronary%20Sy ndrome.pdf#[email or web address] [facility]06-04-2025 NoteAcute Coronary Syndrome (ACS): Initial Evaluation and Management: [email or web address]/[email or web address]/Documents/Guidelines/Acute%20Coronary%20Sy ndrome.pdf#search=[email or web address] [facility]06-04-2025 Emergency department Note* Minna Swenson RN - 11/07/2024 1:31 PM EDT Transport to [place] on monitor with RN, Resident. [facility]06-04-2025 Physician Emergency department Note* Cindy Coffey MD - 11/07/2024 1:30 PM EDT eMERGENCY dEPARTMENT eNCOUnter Patient: Sarah Mcguire : 1945 MR#: [id number] Primary Care Provider: Monika Venegas Date of Exam: 11/07/2024 CHIEF COMPLAINT No chief complaint on file. HPI Sarah Mcguire is a 78 y.o. 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 CT at OSH showed acute on chronicsubdural L pariental. Patient on eliquis, Balfaxar given at OSH. C-collar placed upon arrival to [facility] ED. The patient was evaluated using standard ATLS protocols with assistance from trauma surgery service. Cervical spine precautions were maintained throughout primary and secondary surveys. 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 Cindy Coffey MD Resident 11/07/24 5371 [facility] Work Phone: 1(338) 972-711706-04-2025 Emergency department Note* Lopez Farnsworth RN - 11/07/2024 1:30 PM EDT Bed: E021 Expected date: Expected time: Means of arrival: Comments: 34 [facility]06-04-2025 Emergency department Note* Octavio Pinon [facility] - 11/07/2024 1:28 PM EDT Department of Pharmacy - Trauma Note Patient: Sarah Mcguire Room/Bed: E034/E034 Level 2 trauma s/p Fall with SDH found at OSH Medications received prior to arrival: Balfaxar 2500 units @1130 Prophylactic Antibiotics: n/a Tetanus: N/A Patient is on eliquis. Please feel free to contact me with any further questions. Name: Octavio Pinon [place] Phone #: [phone] Date/Time: 11/07/2024 1:29 PM [facility]06-04-2025 Physician Emergency department Note* Ignacio De La Garza Sr., MD, PhD - 11/07/2024 1:28 PM EDT ED ATTENDING NOTE Please see resident notes [...] had a craniotomy but other than that knowndeformity that appears chronic there were no reported signs of head trauma. PERTINENT EXAM: Vital Signs: BP 200/70 Pulse 64 Temp 98.6 F (37 C) (Oral) Resp 20 SpO2 98% Smoking StatusNever Alpha Coma Scale Best Eye Response: 4-->(E4) spontaneous Best Motor Response: 6-->(M6) obeys commands Best Verbal Response: 5-->(V5) oriented Alpha Coma Scale Score: 15 Primary Assessment Airway [...] EKG Interpretation Rhythm: normal sinus Rate: normal [place]: normal Ectopy: none Conduction: normal ST Segments: [...] 0.69 (L) 1.16 - 3.51 K/uL Abs [place] Auto 0.62 0.22 - 0.87 K/uL Abs [...] in addition to repeat CT head to evaluatefor progression. Will start nicardipine for blood pressure [...] La Garza Sr., MD, PhD 11/07/24 1628 [facility] Note* Minna Swenson RN - 11/07/2024 1:25 PM EDT Cardene 5 mg/hr started now. [facility] Note* KEY Fuentes - 11/07/2024 1:18 PM EDT SW [facility]. Emergency Contacts: Alexsandra, child [phone] Per EMS patient's daughter is en route to [facility]. SW will be available for support as needed while patient is in the ED. Edy BLOOD, [facility] Medical Social Work [facility] Emergency department Note* Minna Swenson RN - 11/07/2024 1:05 PM EDT Patient arrives to trauma bay now. Slurred speech, unsteady gait while at [facility] study. PMH intracranial bleed, craniotomy for tumor (2022). 200/60 on EMS arrival. Improved to 170 en route. [facility] 1 at OSH but 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 [facility] Note* Minna Swenson RN - 11/07/2024 12:53 PM EDT Patient roomed for ordering purposes. [facility] Emergency [facility] Note* Nalini Barnett RN - 11/07/2024 11:40 AM EDT Neuro surg provider paged at this time to clarify BP parameters at this time. [facility]06-04-2025 Radiology Diagnostic study note [facility] Imaging Services [address] [place] [place], [place] [address] STROKE Brain/Head without Cont MR#: [id number] Acct: [id number] Name: SARAH MCGUIRE Rep #: [id number] : 1945 F 78 From: Abbe Gonzalez MD PCP: Dr. Monika Venegas MD Status: REG ER Study:STROKE Brain/Head without Cont Date of Exam: 11/07/24 Exam# [id number] Ordering Dr: Mario Anand MD PROCEDURE: STROKE BRAIN/HEAD WITHOUT CONT 11/07/2024 REASON FOR EXAM: NEURO DEFICIT, ACUTE, STROKE SUSPECTED TECHNIQUE: Head CT without intravenous contrast. Coronal and Sagittal reconstruction serieswere provided. One or more dose reduction techniques [...] is seen areas of left frontal white matterhypodensities (axial images 19 through 30). These are [...] areas infarction, of uncertain age. Reading Location: [id number] CC: Dr. Monika Venegas MD; Dr. Dallas Anand MD ~ Director Database: Signed [facility]06-04-2025 Emergency department Note* Nalini Barnett RN - 11/07/2024 11:00 AM EDT Neuro surg provider paged at this time to clarify BP parameters [facility]04-24-2025 Discharge summary [facility] Medical Records Department [address] [place] [address] Emergency Department Summary 09/27/24 MR#: [id number] Acct: [id number] Name: SARAH MCGUIRE Rep #:[id number] : 1945 78 From: Hayden Sadler DO [...] her surgery and from the ride from [facility] to [place] and December 2022 she notedthat she has had some numbness and tingling periodically in her left arm but today this felt different therefore her daughter brought her here for further evaluation management. She states that she was sitting eating breakfast when this occurred. Patient states that she is anxious about her symptoms. She states that she is on Eliquis. [facility] Medical History Mitral valve stenosis, non-rheumatic [...] be low at 128 indicating hyponatremia however accordingto previous blood draw she is chronically hyponatremic this is her baseline, creatinine normal at 0.97. Patient's troponin was noted be 16 with a delta troponin of 14. Patient's EKG was reviewed which showed sinus bradycardia. Patient chest x- rayreviewed by myself and by radiology showed no acute cardiopulmonary processes. Did discuss his case with on-call instrument repair specialist Dr. Calderon who states that she canfollow-up in the outpatient setting. Did discuss results with the patient and family member bedside. She would like to go home at this point in time and is feeling better. Family bedside states that she has a doctor's appointment tomorrow and she was advised to follow-up atthat appointment which is with her primary care physician. Sheis encouraged return with worsening symptoms or concerns. [...] 78.7 H Lymph % (Auto) 10.8 L [place] % (Auto) 8.3 Eos % (Auto) 1.1 [...] No acute abnormality is seen. Reading Location: [place] [address] Discharge Plan Triage Chief Complaint: Chest Pain [...] symptoms or any other concerns. Print Language: Nicaraguan Disposition Disposition: Home, Self Care What to do if you have Problems For any increased pain, shortness of breath, bleeding, nausea or vomiting, chestpain, or any unexpected problems, contact your Primary Care Provider. Call [facility] ([phone]) or report tothe closest Emergency Room. Call 911 if necessary. 09/27/24 1330 Cosigner Signature (if applicable): CC: Dr. Monika Venegas MD ~ Signed [facility]04-24-2025 Radiology Diagnostic study note [facility] Imaging Services [address], [place] [address] Chest PA and Lateral MR#: [id number] Acct: [id number] Name: SARAH MCGUIRE Rep #: [id number] : 1945 F 78 From: Heri Bradshaw MD PCP: Dr. Monika Venegas MD Status: REG ER Study:Chest PA and Lateral Date of Exam: 09/27/24 Exam# [id number] Ordering Dr: Raheem Sadler DO PROCEDURE: CHEST PA AND LATERAL [...] No acute abnormality is seen. Reading Location: [place] [address] CC: Dr. Monika Venegas MD; Dr. Hayden Sadler DO ~ Director Database: Signed [facility]02-05-2025 History of Present illness Narrative* Annelise Rogers RN - 07/11/2024 11:00 AM EST Patient here today for follow up with her daughter. Diagnosis: grade 2 meningioma of the scalp. s/p skull lesion biopsy (10/13/22), and s/p left frontalcraniectomy and plastics closure on 11/16/22. Postoperative course [...] for hair regrowth within treatment site. Karen Trejo, AGNIESZKA notified Annelise Rogers RN * Annelise Rogers RN - 07/11/2024 11:00 AM EST Cognitive Function - Short Form 8a (PROMIS [...] head: 4 : Rarely (once) TOTAL: 30 * Annelise Rogers RN - 07/11/2024 11:00 AM EST EQ-5D-3L FORM: MOBILITY: (2) I have some [...] the box below. YOUR HEALTH TODAY= 65% * Karen Trejo, BRAND ENGINEER-DIRECTOR MARKET RESEARCH - 07/11/2024 11:00 AM EST RADIATION ONCOLOGY FOLLOW UP NOTE Patient Name: Sarah Silver Samanthazechariah Provider: Dr. Anderw Bueno : 1945 Date: 07/11/2024 DIAGNOSIS: 78 [...] XII are intact grossly and symmetrically EXCEPT [place] in the left ear. No focal neurologic [...] to Meningioma of scalp 60-75Gy in 30fx pfoepbdjp03/11/23. She presents today with her daughter for [...] hyperpigmentation/possible seborrheic keratosis, will refer to dermatology forfurther recommendations on alopecia and evaluation of her skin lesions. Patient prefers local consultation therefore copy of referral provided to patient/daughter. We have reviewed the MRI brain completed earlier today. The final impression is pending at the time of our visit. On our review of the i maging, there is no clear evidence of disease [...] visit by the LOIS. LOIS Clarke, [facility] Department of Radiation Oncology Pager #[phone] * Andrew Bueno MD - 07/11/2024 11:00 AM EST Radiation Oncology Attending Addendum: I saw and independently examined this patient today on 07/11/2024. I discussed my findings and the therapeutic plan with Radiation Oncology Nurse Practitioner, Karen Trejo CNP . I agree with herhistory, physical examination, and medical decisions as outlined. I have reviewed the progress noteand edited as appropriate. I edited the assessment, [...] or radiographic evidence of progression. (SUV decreased from9.6 to 4.8) PRIOR RADIATION TREATMENT: 1) Meningioma [...] headaches a couple times a week, rating 2- 3/10. She takes Tylenol with relief.Pt experiences dizziness/light headedness with position change. Pt denies vision changes, but needsglasses readjusted due to difficulty focusing/reading. Pt has [...] me should any questions arise. Documented by Minna Mckeon, for Dr. Andrew Bueno on 07/11/2024 11:31 [...] with the discharge instructions. [facility] Instructions* Patient Instructions* Annelise Rogers RN - 07/11/2024 11:00 AM EST It was a pleasure to see you today! We will contact you if there are any concerning findings on the final read of your MRI completed today. Please call our office if you develop any new or worsening symptoms in the interim. [phone]. Please schedule a MRI brain prior to follow up with Dr. Bueno in 4 months. Referral placed for dermatology. [facility] NoteEXAM: NUC PET NEUROENDOCRINE, 03/14/2024 10:34 AM CLINICAL INDICATIONS: grade 2 meningioma eval for progression; , COMPARISON: PET/CT 01/12/23.MRI brain 11/29/23 CT DOSE: DLP: 453 mGy x cm kVp: 120 TECHNIQUE: Approximately 65 minutes following the injection of 2.6 mCi of Gallium-68 Dotatate, the patient was positioned on the Siemens AvantCreditgraph mCT TOF< PET/CT-64, Ulices imaging unit.. A [...] although residual/recurrent disease cannot be entirely excluded. [facility]10-09-2024 History of Present illness Narrative * Kristine Blue, BRAND ENGINEER-DIRECTOR MARKET RESEARCH - 03/14/2024 3:00 PM EDT RADIATION ONCOLOGY FOLLOW UP NOTE Patient Name: [...] presents today for routine follow-up with her daughterand granddaughter. Patient complains of grade 1 fatigue, balance difficulty, left sided neuropathy, intermittent left leg edema wears compression stockings, and rare word finding difficulty. She alsoreports PROMIS: 28 (was 28 on 11/29/23) Review [...] focal neurologic deficit. Normal sensation to LT intactbilaterally in the upper and lower extremities. BLE [...] with just a cane. The final read ofthe MRI Brain is not completed at this [...] Dr. Bueno, attending physician. Kristine ABREU, pager [phone] * Andrew Bueno MD - 03/14/2024 3:00 PM EDT Radiation Oncology Attending Addendum: I saw and independently examined this patient today on 03/14/2024. I discussed my findings and the therapeutic plan with Radiation Oncology Nurse Practitioner, Kristine Blue, BRAND ENGINEER,DIRECTOR MARKET RESEARCH. I agree with her history, physical examination, [...] difficulty, left sided neuropathy, intermittent left leg edemawears compression stockings, and rare word finding difficulty. [...] All medical record entries made by the Scribe were at my direction and personally dictated by me, Andrew Bueno MD . I have reviewed and edited the chart and agree that the record accurately reflects my personal performance of the history, physical exam, assessment and plan. I have also personally directed, reviewed, and agree with the discharge instructions. Andrew Bueno MD Restaurant Area Manager Department of Radiation Oncology Pager: [phone] Office: [phone] * Annelise Rogers RN - 03/14/2024 3:00 PM EDT Patient seen independently by provider. Annelise Rogers RN * Annelise Rogers RN - 03/14/2024 3:00 PM EDT Cognitive Function - Short Form 8a (PROMIS [...] I was doin : Sometimes (two or threetimes) I have had trouble shifting back and [...] my head: 5 : Never TOTAL: 28 * Annelise Rogers RN - 03/14/2024 3:00 PM EDT EQ-5D-3L FORM: MOBILITY: (2) I have some [...] YOUR HEALTH TODAY= 75% documented in this [facility]10-09-2024 Instructions* Patient Instructions* Annelise Rogers RN - 03/14/2024 3:00 PM EDT Please return in 3 month MRI and follow up with Dr. Bueno documented in this [facility]06-25-2024 History of Present illness Narrative* Annelise Rogers RN - 11/29/2023 2:30 PM EDT Patient here today for follow up with her daughter. Diagnosis: grade 2 meningioma of the scalp. s/p skull lesion biopsy (10/13/22), and s/p left frontalcraniectomy and plastics closure on 11/16/22. Postoperative course was complicated by right thalamic/internal capsule stroke, s/p left frontal craniotomy for epidural hematoma evacuation on 11/24/2022. NEURO ASSESSMENT Fatigue: grade 1 Headache: ongoing slight headache on top of head, occurring daily, rating 2- 3/10, takes tylenol with relief Seizures: denies Falls: [...] Kristine Blue CNP notified Annelise Rogers RN * Annelise Rogers RN - 11/29/2023 2:30 PM EDT Cognitive Function - Short Form 8a (PROMIS [...] head: 4 : Rarely (once) TOTAL: 28 * Annelise Rogers RN - 11/29/2023 2:30 PM EDT EQ-5D-3L FORM: MOBILITY: (2) I have some [...] the box below. YOUR HEALTH TODAY= 85% * Kristine Blue APRN-DIRECTOR MARKET RESEARCH - 11/29/2023 2:30 PM EDT RADIATION ONCOLOGY FOLLOW UP NOTE Patient Name: Sarah Silver Samanthazechariah Provider: Dr. Andrew Bueno : 1945 Date: [...] trouble eating or drinking, bowel or bladder issues.She does have some dizziness with position changes, [...] syncope, new focal weakness, numbness, or difficulty walking.Denies any cough. No hemoptysis. No fever, chills [...] focal neurologic deficit. Normal sensation to LT intactbilaterally in the upper and lower extremities. BLE [...] a fall several weeks ago when walking upa hill and fell on her bottom, did not hit her head. She is now walking with her walker again, but is restarting PT/OT and hopes to get back to walking with just a cane. The final read of the MRI Brain is not completed at this time, however, upon physician review it appears stable. Dr. Bueno plansto see the patient back with a repeat [...] with Dr. Bueno, attending physician. Kristine Blue APRN-AGNIESZKA, pager [phone] * Andrew Bueno MD - 11/29/2023 2:30 PM EDT Radiation Oncology Attending Addendum: I saw and [...] with Tylenol), balance difficulty (plan to restart VT/OT this week), dizziness with position change, left [...] with the discharge instructions. Andrew Bueno MD Restaurant Area Manager Department of Radiation Oncology Pager: [phone] Office: [phone] documented in this encounterThe [facility]06-25-2024 Instructions* Patient Instructions* LOIS Middleton - 11/29/2023 2:30 PM EDT It was a pleasure to see you today! Please call our office if you develop any new or worsening symptoms in the interim. [phone]. Please schedule a MRI Brain and Neuroendocrine PET scan prior to follow up with Dr. Bueno in 3 months. documented in this [facility]U [facility] History of Present illness Narrative* Cherrie Mendoza RN - 05/19/2023 2:30 PM EST Patient seen today in clinic for two month follow up. She is here with her daughter NEURO ASSESSMENT Pain: headache (see below) Fatigue: Grade 1 Headache: top of head and eyes, 2/10 Seizures: denies Falls: yes, 1 1/2 months ago was using her walker and ran into a chair, she fell on her bottom, didnot hit head Weakness: yes, gets PT three [...] Kristine Blue CNP notified Cherrie Mendoza RN * Kristine Tahir MACIEJ Blue-AGNIESZKA - 05/19/2023 2:30 PM EST RADIATION ONCOLOGY FOLLOW UP NOTE Patient Name: [...] syncope, new focal weakness, numbness, or difficulty walking.Denies any cough. No hemoptysis. No fever, chills [...] focal neurologic deficit. Normal sensation to LT intactbilaterally in the upper and lower extremities. BLE [...] with Dr. Bueno, attending physician. Kristine Blue APRNJ[facility]ARE [facility], pager [phone] Radiation Oncology Attending Addendum: I saw and independently examined this patient today on 05/19/2023. I discussed my findings and the therapeutic plan with Radiation Oncology AGRICULTURE MANAGER, Kristine. I agree with her history, physical [...] should any questions arise. Andrew Bueno MD Restaurant Area Manager Department of Radiation Oncology Pager: [phone] Office: [phone] * Cherrie Mendoza RN - 05/19/2023 2:30 PM EST Cognitive Function - Short Form 8a (PROMIS [...] numbers in my head: 5 : Never * Cherrie Mendoza RN - 05/19/2023 2:30 PM EST EQ-5D-3L FORM: MOBILITY: (2) I have some [...] did not fill out documented in this encounterThe [facility]12-14-2023 Instructions* Patient Instructions* Kristine Blue APRN-DIRECTOR MARKET RESEARCH - 05/19/2023 2:30 PM EST It was a pleasure to see you today! Please call our office if you develop any new or worsening symptoms in the interim. [phone]. Please schedule a MRI prior to follow up with Dr. Bueno in 3 months. documented in this [facility]10-10-2023 History of Present illness Narrative* Annelise Rogers RN - 03/15/2023 10:00 AM EDT RADIATION ONCOLOGY ON TREATMENT VISIT Sarah Mcguire [...] direction with her grandson, he didn't pivot withher. Did not hit head, no sustained injuries [...] her iron and zinc vitamins, started taking withfood which has helped. 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 MD Annelise Deleon, RN * Andrew Bueno MD - 03/15/2023 10:00 AM EDT RADIATION ONCOLOGY ON-TREATMENT VISIT Date of service: [...] No new numbness, falls, seizures, nausea, or visionchanges. Objective: Vitals: weight is 54.4 kg (120 [...] grossly unchanged from prior examination, no focal DAIRY EQUIPMENT MECHANIC findings. Labs: Lab Results Component Value Date [...] radiation therapy as planned. Andrew Bueno MD Outside Sales Advertising Executive Department of Radiation Oncology documented in this encounterOSU [facility] Instructions* Patient Instructions* Annelise Rogers RN - 03/15/2023 10:00 AM EDT Please return in 2 months with repeat brain MRI and follow up with Dr. Bueno on same day! (Patientcan do Mondays) documented in this encounterThe [facility]10-03-2023 History of Present illness Narrative* Annelise Rogers RN - 03/08/2023 10:00 AM EDT RADIATION ONCOLOGY ON TREATMENT VISIT Sarah Mcguire [...] her iron and zinc vitamins, started taking withfood which has helped. 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 Singh notified Annelise Rogers RN * Ameya Singh MD - 03/08/2023 10:00 AM EDT RADIATION ONCOLOGY ON-TREATMENT VISIT Date of service: [...] planned. Ameya Singh MD documented in this encounterU [facility]09[facility] History of Present illness Narrative* Annelise Rogers RN - 03/01/2023 10:00 AM EDT RADIATION ONCOLOGY ON TREATMENT VISIT Sarah Mcguire [...] Julian Siddiqui MD notified Annelise Rogers RN * Julian Siddiqui MD - 03/01/2023 10:00 AM EDT RADIATION ONCOLOGY ON-TREATMENT VISIT Date of service: [...] planned. Julian Siddiqui MD Radiation Oncology Resident Pager:[phone] On Treatment Visit Addendum: I saw and [...] radiation therapy as planned. Andrew Bueno MD Restaurant Area Manager Department of Radiation Oncology [facility] documented in this [facility]09-12-2023 History of Present illness Narrative* Annelise Rogers RN - 02/15/2023 9:40 AM EDT RADIATION ONCOLOGY ON TREATMENT VISIT Sarah Mcguire [...] Julian Siddiqui MD notified. Annelise Rogers RN * Julian Siddiqui MD - 02/15/2023 9:40 AM EDT RADIATION ONCOLOGY ON-TREATMENT VISIT Date of service: [...] planned. Julian Siddiqui MD Radiation Oncology Resident Pager:[phone] On Treatment Visit Addendum: I saw and [...] radiation therapy as planned. Andrew Bueno MD Restaurant Area Manager Department of Radiation Oncology [facility] documented in this encounterOSHocking Valley Community [facility] History of Present illness Narrative* Annelise Rogers RN - 02/08/2023 10:40 AM EDT RADIATION ONCOLOGY ON TREATMENT VISIT Sarah Mcguire [...] Andrew Bueno MD notified. Annelise Rogers RN * Andrew Bueno MD - 02/08/2023 10:40 AM EDT RADIATION ONCOLOGY ON-TREATMENT VISIT Date of service: [...] grossly unchanged from prior examination, no focal DAIRY EQUIPMENT MECHANIC findings. Labs: Lab Results Component Value Date [...] radiation therapy as planned. Andrew Bueno MD Outside Sales Advertising Executive Department of Radiation Oncology documented in [facility]The [facility] History of Present illness Narrative* Annelise Rogers RN - 01/19/2023 3:30 PM EDT Sarah Nadeem Mcguire was seen 01/19/2023 in Radiation Oncology for a CT Simulation. Sarah Mcguire will start radiation on 02/01/2023 and receive 30 treatments. Final treatment will be on03/15/2023. Dr. Kincaid's medical oncology group notified by ADDIE samaniego. Assessed pt for any further needs with regard to childcare, spiritual, financial, transportation, or psychosocial issues. Further education was provided to Sarah Mcguire regarding side effects of radiation, the OTV process, and Time Out procedures prior to daily treatments. No further assistance ashu pereira at this time. Annelise Rogers RN documented in this encounterOS[facility] Instructions* Patient Instructions* Annelise Rogers RN - 01/19/2023 3:30 PM [...] after which you will start treatment. You maystart treatment earlier than this in some cases. You will leave today with a full schedule of all of your radiation appointments. If there is a timeof day that works best for you for [...] treatment machine is running on time or ifthere is a delay. Allow for about 45-60 minutes for your treatment each day. Dr. Bueno will see you each TUESDAY at [facility] after your treatment for your [...] for a ticket each day. This includes beam dyer operator parking. You will be given information on reserved parking in the [place] garages. You will be given a special wrist band today that you can use to check in for your treatments. You do not need to go to registration before each radiation treatment. If you have appointments with anyother department at [facility], you must go to registration prior to those appointments. Please call the radiation clinic at [phone] with any questions or concerns. You can also contact your physician via My Chart with any non-urgent issues. My Chart messages are only reviewed during regular business hours. documented in this encounterThe [facility] Hospital08-16-[facility]23 History of Present illness Narrative* Annelise Rogers RN - 01/19/2023 11:00 AM EDT Patient seen today in clinic for consult. Here today with her daughter and friend. Reason for Consult: meningioma WHO grade 2 Prior Radiation: denies Prior Chemo: denies Pacemaker: denies Claustrophobia: denies Smoking History: denies Alcohol Use: rarely Drug Use: denies 11/16/2022: left frontotemporal craniectomy for resection of intraosseous meningioma with intra- andextra-cranial extension with Dr. Kincaid 11/24/2022: Left frontal [...] Razia Aldridge MD notified Annelise Rogers RN * Annelise Rogers RN - 01/19/2023 11:00 AM EDT Cognitive Function - Short Form 8a (PROMIS [...] and forth between different activities that require thinkin: Never 5. I have had trouble concentratin : Never 6. I have had to work really hard to pay attention, or I would make a mistake: 5 : Never 7. I have had trouble forming thoughts: 5 : Never 8. I have had trouble adding or subtracting numbers in my head: 5 : Never TOTAL: 38 * Annelise Rogers RN - 01/19/2023 11:00 AM EDT EQ-5D-3L FORM: MOBILITY: (2) I have some [...] below. YOUR HEALTH TODAY= didn't fill out * JESSIE Davis/PARRIS - 01/19/2023 11:00 AM EDT Images from the original note [...] lesion biopsy (10/13/22), and s/p left frontal craniectomyand plastics closure on 11/16/22. Postoperative course was [...] MD; Location: [facility] MAIN OR FLAP MUSCLE/MYOCUTANEOUS/FASCIOCUTANEOUS HEAD OR NECK Left 11/16/2022 Laterality: Left; [...] 4 hours as needed for Mild Pain. 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 No jugular venous distension, carotid bruits, ortracheal deviation. CARDIAC: Regular rate and rhythm. Normal [...] II through XII are intact grossly. No focalneurologic deficit. Speech is fluent. There is no [...] Postoperative course was complicated by right thalamic/internal capsulestroke, s/p left frontal craniotomy for epidural hematoma [...] and were open to undergoing radiation therapy asrecommended. Consents for treatment were obtained at today's [...] Razia Singh MD Radiation Oncology Fellow Pager: [phone] * Andrew Bueno MD - 01/19/2023 11:00 AM EDT Radiation Oncology Attending Addendum: I saw and independently examined this patient today on 01/19/2023. I discussed my findings and the therapeutic plan with Radiation Oncology Fellow, Dr. Razia Aldridge. I agree with his history, physical examination, and medical decisions as outlined. I have reviewed the progress note and edited asappropriate. I edited the assessment, physical examination, impression and plan to reflect the patient's current status and treatment plan, which was developed mutually at the time of the visit with the patient. 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 CURRENT STATUS OF DISEASE: Radiographic evidence of residual disease within the left frontoparietalskull meningioma PRIOR RADIATION: N/A 1.) 11/16/2022: left frontotemporal craniectomy for resection of intraosseous meningioma with intra-and extra-cranial extension with Dr. Kincaid 2.) 11/24/2022: [...] right thalmic/internal capsule stroke, s/p left frontal cranio stephanie for epidural hematoma evacuation on 11/24/2022. Clinically [...] and were open to undergoing radiation therapy asrecommended. Consents for treatment were obtained at today's visit. 4) CT Simulation scan for radiation treatment planning. Thank you for allowing us to participate in the care of this patient. Please do not hesitate to contact me should any questions arise. Documented by Danny Mckeon, for Dr. Andrew Bueno on 01/19/2023 12:48 PM. All medical record entries made by the Scribe, Danny Suh, were at my direction and personally dictated by me, Andrew Bueno. I have reviewed the chart and agree that the record accurately reflects my personal performance of the history, physical exam, assessment and plan. I have also personallydirected, reviewed, and agree with the discharge instructions. Andrew Bueno MD Restaurant Area Manager Department of Radiation Oncology Pager: [phone] Office: [phone] documented in this [facility]07-17-2023 Progress note Author Jo-Ann Hsiehjenny [facility] December 20, 2022 3:46pm Note Date/Time December 20, 2022 12:1 3pm [facility] Medical Records Department [address] [place] [address] Progress Note 12/20/22 1208 MR#: [id number] Acct: [id number] Name: SARAH MCGUIRE Rep #:[id number] : 1945 77 From: Jo-Ann Airas DO PCP: Dr. Monika Venegas MD Status:ADM IN Location: [place] [address] Subjective Subjective Afebrile VSS Maintaining appropriate oxygen [...] cough suppressant. Charges/Coding Visit Charges Inpatient E&M: 02125 Subs Hosp L2 12/20/22 1528 <Electronically signed [...] by Jo-Ann alvarado DO> Date _ Jo-Ann Ariaser Signature (if applicable): Date cc: ~* Signed [facility] Work Phone: 1(319) 846-728007-15-2023 Progress note Author Jo-Ann Sementi [facility] December 18, 2022 11:48am Note Date/Time December 17, 2022 6:[address] [facility] Medical Records Department [address] [place] [address] Progress Note 12/17/22 1844 MR#: [id number] Acct: [id number] Name: SARAH MCGUIRE Rep #:[id number] : 1945 77 From: Jo-Ann Arias DO PCP: Dr. Monika Venegas MD Status:ADM IN Location: [place] [address] Subjective Subjective Afebrile VSS Maintaining appropriate oxygen [...] on Tuesday. Charges/Coding Visit Charges Inpatient E&M: 14367 [facility] Hosp L1 12/18/22 1148 <Electronically signed by Jo-Ann Arias DO> Jo-Ann Arias DO Cosigner Signature (if applicable): CC: ~ Signed [facility] Work Phone: 1(883) 780-734907-15-2023 Progress note Author Jo-Ann [facility] December 18, 2022 11:42am Note Date/Time December 16, 2022 12:2 6pm [facility] Medical Records Department [address] [place] [address] Progress Note 12/16/22 1222 MR#: [id number] Acct: [id number] Name: SARAH MCGUIRE Rep #:[id number] : 1945 77 From: Jo-Ann Arias DO PCP: Dr. Monika Venegas MD Status:ADM IN Location: [place] [address] Subjective Subjective Sarah was seen on team [...] with meals. Charges/Coding Visit Charges Inpatient E&M: 40827 Subs Hosp L2 12/18/22 1142 <Electronically signed by Jo-Ann Arias DO> Jo-Ann Arias DO Cosigner Signature (if applicable): CC: ~ Signed [facility] Work Phone: 1(111) 810-197707-15-2023 Progress note Author Jo-Ann Arias [facility] December 18, 2022 11:30am Note Date/Time December 13, 2022 10:5 9am [facility] Medical Records Department [address] [place] [address] Progress Note 12/13/22 1053 MR#: [id number] Acct: [id number] Name: SARAH MCGUIRE Rep #:[id number] : 1945 77 From: Jo-Ann Arias DO PCP: Dr. Monika Venegas MD Status:ADM IN Location: [place] [address]1 Subjective Subjective Afebrile VSS-systolic is mildly elevated [...] precautions discontinue. Charges/Coding Visit Charges Inpatient E&M: 06622 Subs Hosp L2 12/18/22 5480 <Electronically signed by Jo-Ann Arias DO> Jo-Ann Arias DO Cosigner Signature (if applicable): CC: ~ Signed [facility] Work Phone: 1(444) 729-544907-07-2023 Progress note Author Jo-Ann Arias [facility] December 10, 2022 8:52am Note Date/Time December 10, 2022 8:53a m [facility] Medical Records Department [address] [place] [address] Progress Note 12/10/22 0833 MR#: [id number] Acct: [id number] Name: SARAH MCGUIRE Rep #:[id number] : 1945 77 From: Jo-Ann MirelesEnoc Hugo PCP: Dr. Monika Venegas MD Status:ADM IN Location: [place] [address] Subjective Subjective Sarah was seen yesterday on [...] on Tuesday Charges/Coding Visit Charges Inpatient E&M: 88306 Subs Hosp L2 12/10/22 0852 <Electronically signed by Jo-Ann Arias DO> Jo-Ann Arias DO Cosigner Signature (if applicable): CC: ~ Signed [facility] Work Phone: 1(707) 838-593807-07-2023 History and physical note Author Jo-Ann Arias [facility] December 10, 2022 8:33am Note Date/Time December 08, 2022 4:34p m [facility] Medical Records Department [address] [place] [address] Post Admission Physician Radhika 12/08/22 1632 MR#: [id number] Acct: [id number] Name: SARAH MCGUIRE Rep #:[id number] : 1945 77 From: Jo-Ann Arias DO PCP: Dr. Monika Venegas MD Status:ADM IN Location: [place] [address] Admission Information Primary Diagnosis:: Physical debility secondary [...] Skin integrity and Medication Management Patient needs Personnel Counselor/ Case Management for: Discharge Planning, Arranging Home [...] Cosigner Signature (if applicable): CC: ~ Signed [facility] Work Phone: 1(433) 127-208407-05-2023 History and physical note Author Jo-Ann Arias [facility] December 08, 2022 4:32pm Note Date/Time December 07, 2022 10:[address] [facility] Medical Records Department [address] [place] [address] History & Physical Exam 12/07/22 0946 MR#: [id number] Acct: [id number] Name: SARAH MCGUIRE Rep #:[id number] : 1945 77 From: Jo-Ann Arias DO PCP: Dr. Monika Venegas MD Status:ADM IN Location: [place] [address] HPI - General General Date of Admission: [...] and recommendation for acute inpt rehab at [place] was made. 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 There were several small foci of acute [...] Needs a 30 day event monitor at [place]. Afebrile VSS -blood pressures have ranged from 124/55 to 157/61 since admission to rehab. Heart rate has ranged from 79-102. Maintaining appropriate oxygen saturation on RA -97 to 99%. Oral intake is good. She ate 75 to 100% of her breakfast today. Oral intake [id number] since admission and this is in less [...] of 63. Triglycerides were within normal limits. [facility] Medical History (Updated 12/08/22 @ 16:23 by [...] surgeon and Dr. Venegas following DC from Rehab AM lab including CMP, CBC, Mag and Phos -personally reviewed 30 day event monitor at [place] C. difficile toxin/antigen C. difficile PCR isolation [...] a supplement. Charges/Coding Visit Charges Inpatient E&M: 06039 Init Hosp L3 12/08/22 1632 <Electronically signed by Jo-Ann Arias DO> Cosigner Signature (if applicable): CC: Dr. Monika Venegas MD; Dr. Jo-Ann Arias DO~ Signed [facility] Work Phone: 1([phone]) 693-263405-05-2023 History and physical note* Qian Randle MD - 10/08/2022 11:45 AM EDT History of Present Illness Ms. Mcguire is a 76 y.o. 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 1. HYPERTENSION- diangosed 6+yrs ago and has been controlled on current meds. BP Readings from Last 3 Encounters: 10/08/22 128/80 09/30/22 196/72 2. HYPERLIPIDEMIA - stable on statins for 6+ yrs. PLAN: No further cardiac testing needed. CARDIAC TESTING: EKG (10/08/2022): sinus bradycardia, HR:57, normal VT interval, no acute abnormality. PULMONARY Social History [...] 1 capsule by mouth daily every morning. Coudjxugj-Nfjayvlgowk-Jyt D (OSTEO BI-FLEX ONE PER DAY PO) [...] URINALYSIS REFLEX TO CULTURE PERFORMABLE EXTRA MICRO VT ECG, CLINIC PERFORMED Lab A/P - Labs [...] proceed with scheduled surgery. Qian Randle MD 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 Mcguire is a 76 y.o. 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 1. HYPERTENSION- diangosed 6+yrs ago and has been controlled on current meds. BP Readings from Last 3 Encounters: 10/08/22 128/80 09/30/22 196/72 2. HYPERLIPIDEMIA - stable on statins for 6+ yrs. PLAN: No further cardiac testing needed. CARDIAC TESTING: EKG (10/08/2022): sinus bradycardia, HR:57, normal VT interval, no acute abnormality. PULMONARY Social History [...] 1 capsule by mouth daily every morning. Ymklvbmho-Jswpbahoiyz-Dpf D (OSTEO BI-FLEX ONE PER DAY PO) [...] URINALYSIS REFLEX TO CULTURE PERFORMABLE EXTRA MICRO VT ECG, CLINIC PERFORMED Lab A/P - Labs [...] proceed with scheduled surgery. Qian Randle MD 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 - [place] your teeth and rinse your mouth the [...] Information Management Department for all records requests. [phone] [phone] AVS/RF documented in this encounterThe [facility] Hospital04-27-2023 History of Present illness Narrative* Emily [...] and hallucinations. Nursing Assessment: Physical Exam * LOIS Copeland - 09/30/2022 12:00 PM EDT Images from the original note were not included. [facility] Neurosurgery Oncology Clinic Dr. Ernie Kincaid MD Professor, Department of Neurosurgery Director of Neurosurgical Oncology [facility] and [place] [address] NEW PATIENT VISIT NOTES Leon Mcguire is a 76 y.o. female with PMH of HTN, HDL, no cancer history who was recently diagnosed with a Left frontotemporal skull lesion that presents to [facility] Neurosurgery Oncology Clinic for consultation. Pt felt [...] tablet Take 1 tablet by mouth daily. Xvbpkctke-Takegtybnin-Gdp D (OSTEO BI-FLEX ONE PER DAY PO) [...] cancer history who presents today to [facility] NeurosurgeryOncology Clinic for a consultation related to [...] order CT CAP and refer to [facility] Diagnostic Oncology Clinic. We will see patient [...] of the clinic visit. The nurse practitioner/physician fws faculty assistant and I have spoken with the patient and provided written and verbal instructions for the patient. The above note has been reviewed and I agree with the assessment and plan. Ernie Kincaid MD documented in this encounterThe [facility] Hospital04-27-2023 Instructions* Patient Instructions* Hansa Nice RN - 09/30/2022 12:00 PM EDT We are here to assist you through your care at [facility] Noman Villegas [facility]! Your Care Team from today's visit included: Neurosurgeon- Dr. Santosh Kincaid Nurse Practitioner- Shaye Weston APRN-DIRECTOR MARKET RESEARCH Primary Nurse - ROSETTA Hall, RN The Neurosurgery clinic and scheduling staff can be reached at [phone]. Please call if you develop new or worsening symptoms, also with any additional questions regarding your visit today or if you need to contact the doctor. You will speak with a manager brand, who will take a message and forward [...] weekends, and/or during a holiday please call [phone] and speak with the after-hours service. You will be connectedto the neurosurgery resident prescription clerk lenses. New or worsening neurological symptoms can include, but are not limited to: weakness, confusion, difficulty walking, vision/hearing/speech changes, seizures or extremity tremors, and persistent headaches. If it is an emergency you will need to go to your local ER. Ask them to fax your records to us so that we can update our team, fax number [phone]. If you experience seizures affecting the whole [...] our office. Documentation can be faxed to [phone]. Your feedback is important to our team. [...] condition. You will receive this questionnaire via Avisena. Please complete so your providers at [facility] can better help you! documented in this encounterOS[facility] HospitalDis[facility] summary Author Hayden Sadler [facility] Note Date/Time September 27, 2024 1:3 0pm [facility] Medical Records Department [address] [place] [address] Emergency Department Summary 09/27/24 MR#: [id number] Acct: [id number] Name: SARAH MCGUIRE Rep #:[id number] : 1945 78 From: Hayden Sadler DO [...] her surgery and from the ride from [facility] to [place] and December 2022 she notedthat she has had some numbness and tingling periodically in her left arm but today this felt different therefore her daughter brought her here for further evaluation management. She states that she was sitting eating breakfast when this occurred. Patient states that she is anxious about her symptoms. She states that she is on Eliquis. [facility] Medical History Mitral valve stenosis, non-rheumatic [...] tablet 2 mg PO QHS #90 TABLETS 01/2709/26/24 Rx apixaban 2.5 mg tablet 2.5 [...] follow commands knew that she was at [facility] year2024 Skin: Warm, dry, intact Const Vital Signs: [...] processes. Did discuss his case with on-call instrument repair specialist Dr. Calderon who states that she canfollow-up [...] 78.7 H Lymph % (Auto) 10.8 L [place] % (Auto) 8.3 Eos % (Auto) 1.1 [...] No acute abnormality is seen. Reading Location: [place] [address] Discharge Plan Triage Chief Complaint: Chest Pain [...] symptoms or any other concerns. Print Language: Nicaraguan Disposition Disposition: Home, Self Care What to do if you have Problems For any increased pain, shortness of breath, bleeding, nausea or vomiting, chestpain, or any unexpected problems, contact your Primary Care Provider. Call [facility] ([phone]) or report to the closest Emergency Room. Call 911 if necessary. 09/27/24 1330 <Electronically signed by Hayden Sadler DO> Cosigner Signature (if applicable): CC: Dr. Monika Venegas MD ~ Signed [facility] Work Phone: Evaluation noteNo assessment information available [facility] Work Phone: Evaluation note* Diagnosis Onset Date Resolution Status Scalp lesion chronic Scalp lesion chronic [facility] Work Phone: Evaluation note* Diagnosis Skull mass- Primary Disorder of bone and cartilage, unspecified documented in this encounter [facility]* Diagnosis Preop exam for internal medicine Other specified pre-operative examination Skull mass Disorder of bone and cartilage, unspecified Essential hypertension Unspecified essential hypertension Hyperlipidemia, unspecified hyperlipidemia type Skull lesion Disorder of bone and cartilage, unspecified [facility] Diagnosis Preop exam for internal medicine- [...] and cartilage, unspecified [facility] Diagnosis Skull mass Disorder of bone and cartilage, unspecified Skull lesion Disorder of bone and cartilage, unspecified [facility] Diagnosis Onset Date Resolution Status Scalp lesion chronic Scalp lesion chronic Acute blood loss anemia acut e C. difficile enteritis acute Cerebrovascular disease acut e Excessive cerumen in both ear canals acute H/O craniotomy acute Hyponatremia acute Ischemic cerebrovascular accident (CVA) acute Mitral stenosis acute Physical debility acute Pulmonary hypertension acute Thrush acute Scalp lesion chronic [facility] Work Phone: Evaluation note* Diagnosis Neuroendocrine cancer Other malignant neoplasm without specification of site Cancer of cerebral meninges Malignant neoplasm of cerebral meninges [facility] Diagnosis Neuroendocrine cancer- Primary Other malignant neoplasm without specification of site [facility] Diagnosis Onset Date Resolution Status [...] stenosis, non-rheumatic acute Paroxysmal atrial fibrillation acute [facility] Work Phone: Evaluation note* Diagnosis Cancer of cerebral meninges- Primary Malignant neoplasm of cerebral meninges Neuroendocrine cancer Other malignant neoplasm without specification of site documented in [facility] [facility] Neuroendocrine cancer- Primary Other malignant neoplasm without specification of site [facility] Cancer of cerebral meninges- Primary Malignant neoplasm of cerebral meninges [facility] Cancer of cerebral meninges- Primary Malignant neoplasm of cerebral meninges [facility] Diagnosis Cancer of cerebral meninges- Primary Malignant neoplasm of cerebral meninges [facility] Diagnosis Cancer of cerebral meninges- Primary Malignant neoplasm of cerebral meninges [facility] Diagnosis Onset Date Resolution Status Carotid artery bruit acute Ischemic cerebrovascular accident (CVA) acute 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 acute Mitral valve stenosis, non-rheumatic acute Paroxysmal atrial fibrillation acute [facility] Work Phone: Evaluation note* Diagnosis Cancer of cerebral meninges Malignant neoplasm of cerebral meninges [facility] Diagnosis Cancer of cerebral meninges- Primary Malignant neoplasm of cerebral meninges Neuroendocrine cancer Other malignant neoplasm without specification of site [facility] Diagnosis Cancer of cerebral meninges Malignant neoplasm of cerebral meninges Neuroendocrine cancer Other malignant neoplasm without specification of site [facility] Diagnosis Cancer of cerebral meninges Malignant neoplasm of cerebral meninges Neuroendocrine cancer Other malignant neoplasm without specification of site [facility] Diagnosis Cancer of cerebral meninges- Primary Malignant neoplasm of cerebral meninges documented [facility] Diagnosis Cancer of cerebral meninges Malignant neoplasm of cerebral meninges [facility] Diagnosis Cancer of cerebral meninges- Primary Malignant neoplasm of cerebral meninges Skin change Other symptoms involving skin and integumentary tissues Alopecia Alopecia, unspecified S/P radiation therapy Convalescence following radiotherapy [facility] Diagnosis Epidural hematoma- Primary Nontraumatic extradural hemorrhage Seizure Other convulsions Paroxysmal atrial fibrillation Atrial fibrillation Murmur Undiagnosed cardiac murmurs [facility] Diagnosis Epidural hematoma- Primary Nontraumatic extradural hemorrhage Seizure Other convulsions Paroxysmal atrial fibrillation Atrial fibrillation Murmur Undiagnosed cardiac murmurs [facility] Additional Instructions Follow-up with your primary care physician at your scheduled appointment tomorrow. Return with worsening symptoms or any other concerns.[facility] Work Phone: Reason for referral (narrative)* Consultation (Urgent) - New Request Specialty Diagnoses / Procedures Referred By Martha maciel Referred To Contact Oncology Diagnoses Skull mass Shaye Weston, BRAND ENGINEER-DIRECTOR MARKET RESEARCH [address] [place] [address] Referral ID Status Reason Start Date Expiration Date V isits Requested Visits Authorized [id number] New Request 09/30/2022 10/25/2023 1 1 * MRI/CAT Scan (Emergency) - New Request Specialty Diagnoses / Procedures Referred By Contac t Referred To Contact Diagnoses Skull mass Procedures CT ABDOMEN/PELVIS WITH CONTRAST CHG CT SCAN,ABDOMENT AND PELVIS,W CONTRAST Shaye Weston APRN-AGNIESZKA [address] [place] [address] Referral ID Status Reason Start Date Expiration Date V isits Requested Visits Authorized [id number] New Request 09/30/2022 10/25/2023 1 1 * MRI/CAT Scan (Emergency) - New Request Specialty Diagnoses / Procedures Referred By Contac t Referred To Contact Diagnoses Skull mass Procedures CT CHEST WITH CONTRAST CHG DIAGNOSTIC COMPUTED TOMOGRAPHY THORAX W/CONTRAST Shaye Weston APRN-DIRECTOR MARKET RESEARCH [address] [place] [address] Referral ID Status Reason Start Date Expiration Date V isits Requested Visits Authorized [id number] New Request 09/30/2022 10/25/2023 1 1 [facility]No reason for referral information [facility]: Reason for visit Narrative* Auth/Cert Specialty Diagnoses / Procedures Referred By Contac t Referred To Contact Diagnoses Epidural hematoma Subdural Hematoma Jl Nazario MB [facility] [address] [place] [address] Phone: tel: fax: [facility] [address] [place] [address] Referral ID Status Reason Start Date Expiration Date Visits Re quested Visits Authorized [id number] 1 1 [facility] Family History Relationship Condition Age at Onset Recorded Date/T emir father Cerebrovascular accident (CVA) Unknown Cardiac disease Unknown mother Diabetes mellitus Unknown Advance Directives Advance Directive Response Recorded Date/ Time Living Will No July 31, 022 8:17pm Power of Senior Accounting Analyst No July 31, 2021 8:17pm Advance Directive Response Recorded Date/ Time Living Will No July 31, 022 7:17pm Power of Senior Accounting Analyst No July 31, 2021 7:17pm Advance Directive Response Recorded Date/ Time Name of Medical Power of Senior Accounting Analyst herbie Rapp December 10, 2022 11:50am Living Will Yes December 10, 2022 1 1:50am Power of Senior Accounting Analyst Yes December 10, 2022 11:50am Latest Code [...] Date/ Time Name of Medical Power of Senior Accounting Analyst herbie Rapp December 10, 2022 11:50am Name of Medical Power of Senior Accounting Analyst Reggie boudreaux December 23, 2022 6:27pm Living Will Yes December 23, 2022 6:27pm Power of Senior Accounting Analyst Yes December 23 6:27pm Advance Directive Response Recorded Date/ Time Living Will Yes December 23, 2022 5:27pm Power of Senior Accounting Analyst Yes December 23 5:27pm Date Activated Date [...] Do you have a Healthcare Power of Senior Accounting Analyst? Yes September 27, 2024 9:32am Name of Medical Power of Senior Accounting Analyst Alexsandra September 27, 2024 9:32am Date Activated [...] Do you have a Healthcare Power of Senior Accounting Analyst? Yes September 27, 2024 9:32am Name of Medical Power of Senior Accounting Analyst Alexsandra September 27, 2024 9:32am Do you have a Healthcare Power of Senior Accounting Analyst? No November 07, 2024 11:15am Advance Directive Response Recorded Date/ Time Do you have a Healthcare Power of Senior Accounting Analyst? Yes September 27, 2024 9:32am Name of Medical Power of Senior Accounting Analyst Alexsandra September 27, 2024 9:32am Do you have a Healthcare Power of Senior Accounting Analyst? No November 07, 2024 11:15am Do you have a Healthcare Power of Senior Accounting Analyst? Yes November 13, 2024 10:32am Name of Medical Power of Senior Accounting Analyst Alexsandra Grullon November 13, 2024 10:32am Advance Directive Response Recorded Date/ Time Do you have a Healthcare Power of Senior Accounting Analyst? Yes December 03, 2024 5:33pm Do you have a Healthcare Power of Senior Accounting Analyst? Yes September 27, 2024 9:32am Name of Medical Power of Senior Accounting Analyst Alexsandra September 27, 2024 9:32am Do you have a Healthcare Power of Senior Accounting Analyst? No November 07, 2024 11:15am Do you have a Healthcare Power of Senior Accounting Analyst? Yes November 13, 2024 10:32am Name of Medical Power of Senior Accounting Analyst Alexsandra Grullon November 13, 2024 10:32am Chief Complaint and Reason for Visit Chief [...] RVR AFIB WITH RVR STROKE STROKE S/P [facility] 12/24/22 Reason for Visit Acute blood loss [...] Carotid artery bruit Ischemic cerebrovascular accident (CVA) 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 Mitral valve stenosis, non-rheumatic Paroxysmal atrial fibrillation Chief Complaint Admit Date chest pain September 27, 2024 9:1 9am Chief Complaint Admit Date chest pain September 27, 2024 9:1 9am neuro symptoms November 07, 2024 10:51 am Chief Complaint Admit Date chest pain September 27, 2024 9:1 9am stroke alert November 07, 2024 10:51 am SUBDURAL HEMATOMA November 12, 2024 6:16p m SUBDURAL HEMATOMA November 13, 2024 10:5 0am SUBDURAL HEMATOMA November 15, 2024 11:2 4am SUBDURAL HEMATOMA November 16, 2024 8:28 am SUBDURAL HEMATOMA November 19, 2024 8:26 am SUBDURAL HEMATOMA 2024 11:4 0am SUBDURAL HEMATOMA November 22, 2024 8:50 am SUBDURAL HEMATOMA November 26, 2024 12:0 6pm SUBDURAL HEMATOMA November 27, 2024 4:47 pm Reason for Visit Admit Date Decubitus ulcer of coccyx, stage 2 November 12, 2024 6:16pm Generalized muscle weakness November 12 6:16pm Physical debility November 12, 2024 6:16p m Seizure disorder November 12, 2024 6:16p m Anticoagulant long-term use November 12 6:16pm Carotid artery bruit November 12, 2024 6:16 pm Chronic anemia November 12, 2024 6:16p m Grade II diastolic dysfunction November 12, 2024 6:16pm High cholesterol November 12, 2024 6:16p m HTN (hypertension) November 12, 2024 6:16p m Intracranial epidural hematoma November 12, 2024 6:16pm 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 November 12, 2024 6:16pm Mild aortic stenosis November 12, 2024 6:16 pm Paroxysmal atrial fibrillation November 12, 2024 6:16pm Presbycusis November 12, 2024 6:16p m Severe anxiety November 12, 2024 6:16p m Acute cystitis November 12, 2024 6:16p m Hypo-osmolality and hyponatremia November 6:16pm Bradycardia, sinus November 12, 2024 6:16p m Chief Complaint Admit Date chest pain September 27, 2024 9:1 9am stroke alert November 07, 2024 10:51 am SUBDURAL HEMATOMA November 12, 2024 6:16p m SUBDURAL HEMATOMA November 13, 2024 10:5 0am SUBDURAL HEMATOMA November 15, 2024 11:2 4am SUBDURAL HEMATOMA November 16, 2024 8:28 am SUBDURAL HEMATOMA November 19, 2024 8:26 am SUBDURAL HEMATOMA 2024 11:4 0am SUBDURAL HEMATOMA November 22, 2024 8:50 am SUBDURAL HEMATOMA November 26, 2024 12:0 6pm SUBDURAL HEMATOMA November 27, 2024 4:47 pm GENERILIZED WEAKNESS, UTI December 03 10:35pm Reason for Visit Admit Date Decubitus ulcer of coccyx, stage 2 November 12, 2024 6:16pm Generalized muscle weakness November 12 6:16pm Physical debility November 12, 2024 6:16p m Seizure disorder November 12, 2024 6:16p m Anticoagulant long-term use November 12 6:16pm Carotid artery bruit November 12, 2024 6:16 pm Chronic anemia November 12, 2024 6:16p m Grade II diastolic dysfunction November 12, 2024 6:16pm High cholesterol November 12, 2024 6:16p m HTN (hypertension) November 12, 2024 6:16p m Intracranial epidural hematoma November 12, 2024 6:16pm 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 November 12, 2024 6:16pm Mild aortic stenosis November 12, 2024 6:16 pm Paroxysmal atrial fibrillation November 12, 2024 6:16pm Presbycusis November 12, 2024 6:16p m Severe anxiety November 12, 2024 6:16p m Acute cystitis November 12, 2024 6:16p m Hypo-osmolality and hyponatremia November 6:16pm Bradycardia, sinus November 12, 2024 6:16p m Ambulatory dysfunction December 03, 2024 1 0:35pm Generalized weakness December 03, 2024 10: 35pm Intracranial epidural hematoma November 10:35pm Reason for Referral Specialty Diagnoses / Procedures Referred By Contac t Referred To Contact Diagnoses Preop exam for internal medicine Skull mass Essential hypertension Hyperlipidemia, unspecified hyperlipidemia type Procedures PREPARE TO TRANSFUSE OR RED BLOOD CELLS Qian Randle MD [address] [facility] [address] [place] [address] Referral ID Status Reason Start Date Expiration Date V isits Requested Visits Authorized [id number] New Request 10/08/2022 11/02/2023 1 1 Specialty Diagnoses / Procedures Referred By Contac t Referred To Contact Diagnoses Skull mass Procedures MRI STEALTH BRAIN [place] MRI BRAIN COMBO Shaye Weston, BRAND ENGINEER-DIRECTOR MARKET RESEARCH [address] [place] [address] Referral ID Status Reason Start Date Expiration Date V isits Requested Visits Authorized [id number] New Request 10/08/2022 11/02/2023 1 1 Specialty Diagnoses / Procedures Referred By Contac t Referred To Contact Diagnoses Neuroendocrine cancer Cancer of cerebral meninges Procedures MRI BRAIN WITH PERFUSION [place] MRI BRAIN Andrew Sher MD [address] [place] [phone] Referral ID Status Reason Start Date Expiration Date V isits Requested Visits Authorized [id number] New Request 01/06/2023 01/31/2024 1 1 Specialty Diagnoses / Procedures Referred By Contac t Referred To Contact Diagnoses Neuroendocrine cancer Cancer of cerebral meninges Procedures NUC PET NEUROENDOCRINE CHG NUC THERAPY HYPERTHYROID SUBSEQUENT Andrew Bueno MD [address] [place] [address] Referral ID Status Reason Start Date Expiration Date V isits Requested Visits Authorized [id number] New Request 01/06/2023 01/31/2024 1 1 Specialty Diagnoses / Procedures Referred By Contac t Referred To Contact Diagnoses Cancer of cerebral meninges Procedures MRI BRAIN WITH PERFUSION [place] MRI BRAIN Andrew Sher MD [address] [facility] [place] [address] Referral ID Status Reason Start Date Expiration Date V isits Requested Visits Authorized [id number] New Request 03/15/2023 04/08/2024 1 1 Specialty Diagnoses / Procedures Referred By Contac t Referred To Contact Diagnoses Cancer of cerebral meninges Procedures MRI BRAIN WITH PERFUSION [place] MRI BRAIN COMBO Salts, Kristine Tahir, BRAND ENGINEER-DIRECTOR MARKET RESEARCH [address] [place] [address] Referral ID Status Reason Start Date Expiration Date V isits Requested Visits Authorized [id number] New Request 05/19/2023 06/12/2024 1 1 Referral ID Status Reason Start Date Expiration Date V isits Requested Visits Authorized [id number] New Request 08/23/2023 09/16/2024 1 1 Specialty Diagnoses / Procedures Referred By Contac t Referred To Contact Diagnoses Cancer of cerebral meninges Neuroendocrine cancer Procedures NUC PET NEUROENDOCRINE CHG PET IMAGING CT ATTENUATION SKULL BASE MID-THIGH Andrew Bueno MD [address] [place] [address] Referral ID Status Reason Start Date Expiration Date V isits Requested Visits Authorized [id number] New Request 11/29/2023 12/23/2024 1 1 Specialty Diagnoses / Procedures Referred By Contac t Referred To Contact Diagnoses Cancer of cerebral meninges Neuroendocrine cancer Procedures MRI BRAIN WITH PERFUSION CHG MRI BRAIN BRAIN STEM W/O W/CONTRAST MATERIAL Andrew Bueno MD [address] [place] [address] Referral ID Status Reason Start Date Expiration Date V isits Requested Visits Authorized [id number] New Request 11/29/2023 12/23/2024 1 1 Specialty Diagnoses / Procedures Referred By Contac t Referred To Contact Diagnoses Cancer of cerebral meninges Procedures MRI BRAIN WITH PERFUSION CHG MRI BRAIN BRAIN STEM W/O W/CONTRAST MATERIAL SaltsBabaka Tahir, BRAND ENGINEER-DIRECTOR MARKET RESEARCH [address] [place] [address] Referral ID Status Reason Start Date Expiration Date V isits Requested Visits Authorized [id number] New Request 03/14/2024 04/08/2025 1 1 Summary [...] ESQUIVEL Attending Provider, Referring Provide r Active Spinner Tender Relationship Specialty Start Date End Date Monika Venegas MD [address] [place] [address] PCP - General Family Medicine 09/28/22 Spinner Tender Relationship Specialty Start Date End Date Monika Venegas MD [address] [place] [address] PCP - General Family Medicine 09/28/22 Spinner Tender Relationship Specialty Start Date End Date Monika Venegas MD [address] [place] [facility] [phone] PCP - General Family Medicine 09/28/22 Spinner Tender Relationship Specialty Start Date End Date Monika Venegas MD [address] [place] [address] PCP - General Family Medicine 09/28/22 Spinner Tender Relationship Specialty Start Date End Date Monika Venegas MD [address] [place] [address] PCP - General Family Medicine 09/28/22 Team Status: Inactive Member Role Status Dates Dr. Monika Veneags MD Primary Care Provider Active DEQUAN ANDERSON Attending Provider, Referring Prov ider Active Team Status: Inactive Member Role Status Dates Dr. Monika Venegas MD Primary Care Provider Active MONICA ESQUIVEL Attending Provider Active MONICA ESQUIVEL Referring Provider Active Team Status: Active Member Role Status Dates Dr. Monika Venegas MD Primary Care Provider Active Dr. Jo-Ann Arias DO Admit Pr ovider, Attending Provider, Other Provider Active Team Status: Active Member Role Status Dates Dr. Monika Venegas MD Primary Care Provider Active Dr. Jo-Ann Arias DO Admit Pr ovider, Attending Provider, Referring Provider, Other Provider Active Team Status: Inactive Member Role Status Dates Dr. Monika Venegas MD Primary Care Provider Active Dr. Jo-Ann Arias DO Admit Pr ovider, Attending Provider, Referring Provider Active Spinner Tender Relationship Specialty Start Date End Date Monika Venegas MD [address] [place] [address] PCP - General Family Medicine 09/28/22 Spinner Tender Relationship Specialty Start Date End Date Monika Venegas MD [address] [place] [address] PCP - General Family Medicine 09/28/22 Spinner Tender Relationship Specialty Start Date End Date Monika Venegas MD [address] [place] [address] PCP - General Family Medicine 09/28/22 Team Status: Active Member Role Status Dr. Monika Venegas MD Primary Care Provider [...] Rivera MD Other Provider Active Jagdish Moncada AGRICULTURE MANAGER, AGRICULTURE MANAGER-C Other Provider Active Kourtney Beasley AGRICULTURE MANAGER, AGRICULTURE MANAGER-C Other Provider Active Lolly Alejandra PA, PA Other Provider Active Dr. Alix Hudson DO Other Provider Active Team Status: Active Member Role Status Dr. Monika Venegas MD Primary Care Provider [...] Rivera MD Other Provider Active Jagdish Moncada AGRICULTURE MANAGER, AGRICULTURE MANAGER-C Other Provider Active Kourtney Beasley AGRICULTURE MANAGER, AGRICULTURE MANAGER-C Other Provider Active Lolly Alejandra PA, PA [...] Rivera MD Other Provider Active Jagdish Moncada AGRICULTURE MANAGER, AGRICULTURE MANAGER-C Other Provider Active Kourtney Beasley AGRICULTURE MANAGER, AGRICULTURE MANAGER-C Other Provider Active Lolly Alejandra PA, PA Other Provider Active Dr. Alix Hudson DO Attending Provider Active Spinner Tender Relationship Specialty Start Date End Date Monika [place] [address] PCP - General Family Medicine 09/28/22 Spinner Tender Relationship Specialty Start Date End Date Monika Venegas MD [address] [place] [address] PCP - General Family Medicine 09/28/22 Spinner Tender Relationship Specialty Start Date End Date Monika Venegas MD [address] [place] [address] PCP - General Family Medicine 09/28/22 Spinner Tender Relationship Specialty Start Date End Date Monika Venegas MD [address] [place] [address] PCP - General Family Medicine 09/28/22 Spinner Tender Relationship Specialty Start Date End Date Monika Venegas MD [address] [place] [address] PCP - General Family Medicine 09/28/22 Spinner Tender Relationship Specialty Start Date End Date Monika Venegas MD [address] [place] [address] PCP - General Family Medicine 09/28/22 Spinner Tender Relationship Specialty Start Date End Date Monika Venegas MD [address] [place] [address] PCP - General Family Medicine 09/28/22 Spinner Tender Relationship Specialty Start Date End Date Monika Venegas MD [address] [place] [address] PCP - General Family Medicine 09/28/22 Spinner Tender Relationship Specialty Start Date End Date Monika Venegas MD [address] [place] [address] PCP - General Family Medicine 09/28/22 Team Status: Inactive Member Role Status Dates Dr. Monika Venegas MD Primary Care Provider Active Lolly Alejandra PA, PA Attending Provider, Referr ing Provider Active Team Status: Active Member Role Status Dates Dr. Monika Venegas MD Primary Care Prov ider, Attending Provider, Referring Provider Active Spinner Tender Relationship Specialty Start Date End Date Monika Venegas MD [address] [place] [address] PCP - General Family Medicine 09/28/22 Spinner Tender Relationship Specialty Start Date End Date Monika Venegas MD [address] [place] [address] PCP - General Family Medicine 09/28/22 Spinner Tender Relationship Specialty Start Date End Date Monika Venegas MD [address] [place] [address] PCP - General Family Medicine 09/28/22 Spinner Tender Relationship Specialty Start Date End Date Monika Venegas MD [address] [place] [address] PCP - General Family Medicine 09/28/22 Team [...] September 27, 2024 End: September 27, 2024 Spinner Tender Relationship Specialty Start Date End Date Monika Venegas MD PCP - General Family Medicine 09/28/22 Team Status: Inactive Member Role Status Dates Dr. Monika Venegas MD Primary Care Provider Active Start: September 27, 2024 End: September 27, 2024 Dr. Hayden Sadler DO Attending Provider Active Start: September 27, 2024 End: September 27, 2024 Dr. Hayden Sadler DO Emergency Provider Active Start: September 27, 2024 End: September 27, 2024 Team Status: Inactive Member Role Status Dates Dr. Monika Venegas MD Primary Care Provider Active Start: November 07, 2024 End: November 07, 2024 Dr. Dallas Anand MD Emergency Provider Active Sta rt: November 07, 2024 End: November 07, 2024 Team Status: Inactive Member Role Status Dates Dr. Monika Venegas MD Primary Care Provider Active Start: November 07, 2024 End: November 07, 2024 Dr. Dallas Anand MD Attending Provider Active Sta rt: November 07, 2024 End: November 07, 2024 Dr. Dallas Anand MD Emergency Provider Active Sta rt: November 07, 2024 End: November 07, 2024 Team Status: Inactive Member Role Status Dates Dr. Monika Venegas MD Primary Care Provider Active Start: November 12, 2024 End: November 29, 2024 Dr. Jo-Ann Arias DO Admit Provider Active Start: November 12, 2024 End: November 29, 2024 Dr. Jo-Ann Arias DO Attending Provider Act henrietta Start: November 12, 2024 End: November 29, 2024 Dr. Jo-Ann Arias DO Referring Provider Act henrietta Start: November 12, 2024 End: November 29, 2024 Dr. Chente Leung MD Other Provider Active Star t: November 12, 2024 End: November 29, 2024 Dr. Yifan Roque MD Other Provider Active Sta rt: November 12, 2024 End: November 29, 2024 Dr. Gagan Schulte MD Other Provider Active Start: November 12, 2024 End: November 29, 2024 Dr. Mattie Haynes DO Other Provider Active Start: November 12, 2024 End: November 29, 2024 Dr. Christy Baer MD Other Provider Active Start: November 12, 2024 End: November 29, 2024 Dr. Argentina Schmitz MD Other Provider Active Start: November 12, 2024 End: November 29, 2024 Dr. Sanjuana Flores MD Other Provider Active Start: November 12, 2024 End: November 29, 2024 Dr. Deepak Byrd MD Other Provider Active Star t: November 12, 2024 End: November 29, 2024 Dr. Gibson Yang MD Other Provider Active Start : November 12, 2024 End: November 29, 2024 TYRA Bragg Other Provider Active S tart: November 12, 2024 End: November 29, 2024 Team Status: Active Member Role Status Dates Dr. Monika Venegas MD Primary Care Provider Active Start: November 13, 2024 Dr. Jo-Ann Arias DO Admit Provider Active Start: November 13, 2024 Dr. Jo-Ann Arias DO Attending Provider Act henrietta Start: November 13, 2024 Dr. Jo-Ann Arias DO Other Provider Active Start: November 13, 2024 Team Status: Active Member Role Status Dates Dr. Monika Venegas MD Primary Care Provider Active Start: November 15, 2024 Dr. Nora Sementi , DO Admit Provider Active Start: November 15, 2024 Dr. Jo-Ann Arias , DO Attending Provider Act henrietta Start: November 15, 2024 Dr. Jo-Ann Arias , DO Other Provider Active Start: November 15, 2024 Team Status: Active Member Role Status Dates Dr. oMnika Venegas MD Primary Care Provider Active Start: November 16, 2024 Dr. Jo-Ann Arias , DO Admit Provider Active Start: November 16, 2024 Dr. Jo-Ann Arias , DO Attending Provider Act henrietta Start: November 16, 2024 Dr. Jo-Ann Arias , DO Other Provider Active Start: November 16, 2024 Team Status: Active Member Role Status Dates Dr. Monika Venegas MD Primary Care Provider Active Start: November 19, 2024 Dr. Jo-Ann Arias , DO Admit Provider Active Start: November 19, 2024 Dr. Jo-Ann Arias , DO Attending Provider Act henrietta Start: November 19, 2024 Dr. Jo-Ann Arias , DO Other Provider Active Start: November 19, 2024 Team Status: Active Member Role Status Dates Dr. Monika Venegas MD Primary Care Provider Active Start: 2024 Dr. Jo-Ann Arias , DO Admit Provider Active Start: 2024 Dr. Jo-Ann Arias , DO Attending Provider Act henrietta Start: 2024 Dr. Jo-Ann Arias , DO Other Provider Active Start: 2024 Team Status: Active Member Role Status Dates Dr. Monika Venegas MD Primary Care Provider Active Start: November 22, 2024 Dr. Jo-Ann Arias , DO Admit Provider Active Start: November 22, 2024 Dr. Jo-Ann Arias , DO Attending Provider Act henrietta Start: November 22, 2024 Dr. Jo-Ann Arias , DO Other Provider Active Start: November 22, 2024 Team Status: Active Member Role Status Dates Dr. Monika Venegas MD Primary Care Provider Active Start: November 26, 2024 Dr. Jo-Ann Arias , DO Admit Provider Active Start: November 26, 2024 Dr. Jo-Ann Arias , DO Attending Provider Act henrietta Start: November 26, 2024 Dr. Jo-Ann Arias DO Referring Provider Act henrietta Start: November 26, 2024 Dr. Jo-Ann Arias DO Other Provider Active Start: November 26, 2024 Team Status: Active Member Role Status Dates Dr. Monika Venegas MD Primary Care Provider Active Start: November 27, 2024 Dr. Jo-Ann Arias , Admit Provider Active Start: November 27, 2024 Dr. Jo-Ann Arias DO Attending Provider Act henrietta Start: November 27, 2024 Dr. Jo-Ann Arias DO Referring Provider Act henrietta Start: November 27, 2024 Dr. Jo-Ann Arias DO Other Provider Active Start: November 27, 2024 Dr. Chente Leung MD Other Provider Active Star t: November 27, 2024 Dr. Yifan Roque MD Other Provider Active Sta rt: November 27, 2024 Dr. Gagan Schulte MD Other Provider Active Start: November 27, 2024 Dr. Mattie Haynes DO Other Provider Active Start: November 27, 2024 Dr. Christy Baer MD Other Provider Active Start: November 27, 2024 Dr. Argentina Schmitz MD Other Provider Active Start: November 27, 2024 Dr. Sanjuana Flores MD Other Provider Active Start: November 27, 2024 Dr. Deepak Byrd MD Other Provider Active Star t: November 27, 2024 Dr. Gibson Yang MD Other Provider Active Start : November 27, 2024 TYRA Bragg Other Provider Active S tart: November 27, 2024 Team Status: Active Member Role/Relationship Status Dates Dr. Monika Venegas MD Primary Care Provider Active Team Status: Inactive Member Role/Relationship Status Dates Dr. Monika Venegas MD Primary Care Provider Active Start: September 27, 2024 End: September 27, 2024 Dr. Hayden Sadler DO Attending Provider Active Start: September 27, 2024 End: September 27, 2024 Dr. Hayden Sadler DO Emergency Provider Active Start: September 27, 2024 End: September 27, 2024 Team Status: Inactive Member Role/Relationship Status Dates Dr. Monika Venegas MD Primary Care Provider Active Start: November 07, 2024 End: November 07, 2024 Dr. Dallas Anand MD Attending Provider Active Sta rt: November 07, 2024 End: November 07, 2024 Dr. Dallas Anand MD Emergency Provider Active Sta rt: November 07, 2024 End: November 07, 2024 Team Status: Inactive Member Role/Relationship Status Dates Dr. Monika Venegas MD Primary Care Provider Active Start: November 12, 2024 End: November 29, 2024 Dr. Jo-Ann Arias DO Admit Provider Active Start: November 12, 2024 End: November 29, 2024 Dr. Jo-Ann Arias DO Attending Provider Act henrietta Start: November 12, 2024 End: November 29, 2024 Dr. Jo-Ann Arias DO Referring Provider Act henrietta Start: November 12, 2024 End: November 29, 2024 Dr. Chente Leung MD Other Provider Active Star t: November 12, 2024 End: November 29, 2024 Dr. Yifan Roque MD Other Provider Active Sta rt: November 12, 2024 End: November 29, 2024 Dr. Gagan Schulte MD Other Provider Active Start: November 12, 2024 End: November 29, 2024 Dr. Mattie Haynes DO Other Provider Active Start: November 12, 2024 End: November 29, 2024 Dr. Christy Baer MD Other Provider Active Start: November 12, 2024 End: November 29, 2024 Dr. Argentina Schmitz MD Other Provider Active Start: November 12, 2024 End: November 29, 2024 Dr. Sanjuana Flores MD Other Provider Active Start: November 12, 2024 End: November 29, 2024 Dr. Deepak Byrd MD Other Provider Active Star t: November 12, 2024 End: November 29, 2024 Dr. Gibson Yang MD Other Provider Active Start : November 12, 2024 End: November 29, 2024 TYRA Bragg Other Provider Active S tart: November 12, 2024 End: November 29, 2024 Team Status: Active Member Role/Relationship Status Dates Dr. Monika Venegas MD Primary Care Provider Active Start: November 13, 2024 Dr. Jo-Ann Arias , Admit Provider Active Start: November 13, 2024 Dr. Jo-Ann Arias DO Attending Provider Act henrietta Start: November 13, 2024 Dr. Jo-Ann Arias , Other Provider Active Start: November 13, 2024 Team Status: Active Member Role/Relationship Status Dates Dr. Monika Venegas MD Primary Care Provider Active Start: November 15, 2024 Dr. Jo-Ann Arias , DO Admit Provider Active Start: November 15, 2024 Dr. Jo-Ann Arias , DO Attending Provider Act henri[place] Start: November 15, 2024 Dr. Jo-Ann Arias DO Other Provider Active Start: November 15, 2024 Team Status: Active Member Role/Relationship Status Dates Dr. Monika Venegas MD Primary Care Provider Active Start: November 16, 2024 Dr. Jo-Ann Arias , Admit Provider Active Start: November 16, 2024 Dr. Jo-Ann Arias DO Attending Provider Act henri[place] Start: November 16, 2024 Dr. Jo-Ann Arias , Other Provider Active Start: November 16, 2024 Team Status: Active Member Role/Relationship Status Dates Dr. Monika Venegas MD Primary Care Provider Active Start: November 19, 2024 Dr. Jo-Ann Arias DO Admit Provider Active Start: November 19, 2024 Dr. Jo-Ann Arias , DO Attending Provider Act henrietta Start: November 19, 2024 Dr. Jo-Ann Arias DO Other Provider Active Start: November 19, 2024 Team Status: Active Member Role/Relationship Status Dates Dr. Monika Venegas MD Primary Care Provider Active Start: 2024 Dr. Jo-Ann Arias DO Admit Provider Active Start: 2024 Dr. Jo-Ann Arias DO Attending Provider Act henrietta Start: 2024 Dr. Jo-Ann Arias DO Other Provider Active Start: 2024 Team Status: Active Member Role/Relationship Status Dates Dr. Monika Venegas MD Primary Care Provider Active Start: November 22, 2024 Dr. Jo-Ann Arias DO Admit Provider Active Start: November 22, 2024 Dr. Jo-Ann Arias DO Attending Provider Act henrietta Start: November 22, 2024 Dr. Jo-Ann Arias DO Other Provider Active Start: November 22, 2024 Team Status: Active Member Role/Relationship Status Dates Dr. Monika Venegas MD Primary Care Provider Active Start: November 26, 2024 Dr. Jo-Ann Arias DO Admit Provider Active Start: November 26, 2024 Dr. Jo-Ann Arias DO Attending Provider Act henrietta Start: November 26, 2024 Dr. Jo-Ann Arias DO Referring Provider Act henrietta Start: November 26, 2024 Dr. Jo-Ann Arias DO Other Provider Active Start: November 26, 2024 Team Status: Active Member Role/Relationship Status Dates Dr. Monika Venegas MD Primary Care Provider Active Start: November 27, 2024 Dr. Jo-Ann Arias DO Admit Provider Active Start: November 27, 2024 Dr. Jo-Ann Arias DO Attending Provider Act henrietta Start: November 27, 2024 Dr. Jo-Ann Arias DO Referring Provider Act henrietta Start: November 27, 2024 Dr. Jo-Ann Arias DO Other Provider Active Start: November 27, 2024 Dr. Chente Leung MD Other Provider Active Star t: November 27, 2024 Dr. Yifan Roque MD Other Provider Active Sta rt: November 27, 2024 Dr. Gagan Schulte MD Other Provider Active Start: November 27, 2024 Dr. Mattie Haynes DO Other Provider Active Start: November 27, 2024 Dr. Christy Baer MD Other Provider Active Start: November 27, 2024 Dr. Argentina Schmitz MD Other Provider Active Start: November 27, 2024 Dr. Sanjuana Flores MD Other Provider Active Start: November 27, 2024 Dr. Deepak Byrd MD Other Provider Active Star t: November 27, 2024 Dr. Gibson Yang MD Other Provider Active Start : November 27, 2024 TYRA Bragg Other Provider Active S tart: November 27, 2024 Team Status: Active Member Role/Relationship Status Dates Dr. Monika Venegas MD Primary Care Provider Active Start: December 03, 2024 Dr. Hayden Sadler DO Emergency Provider Active Start: December 03, 2024 Dr. Darnell Gonzalez DO Admit Provider Active Start: December 03, 2024 Dr. Darnell Gonzalez DO Attending Provider Active Start: December 03, 2024 Dr. Darnell Gonzalez DO Referring Provider Active Start: December 03, 2024 Reason for Visit (unrecogniz ed section and content) Reason Comments New Patient Specialty Diagnoses / Procedures Referred By Contac t Referred To Contact Neurologic Surgery Diagnoses Neoplasm of bone of skull Monika Venegas MD [address] [place] [address] [facility] [address] [place] [address] Referral ID Status Reason Start Date Expiration Date V isits Requested Visits Authorized [id number] Pending Review 09/27/2022 10/22/2023 1 1 Reason Comments Pre-operative Consultation Specialty Diagnoses / Procedures Referred By Contac t Referred To Contact PreOp Diagnoses Skull mass Shaye Weston, BRAND ENGINEER-DIRECTOR [employer] [address] [place] [address] Referral ID Status Reason Start Date Expiration Date V isits Requested Visits Authorized [id number] New Request 10/07/2022 11/01/2023 1 1 Specialty Diagnoses / Procedures Referred By Contac t Referred To Contact Diagnoses Skull mass Procedures MRI STEALTH BRAIN [place] MRI BRAIN COMBO Shaye Weston, BRAND ENGINEER-DIRECTOR [employer] [address] [place] [address] Referral ID Status Reason Start Date Expiration Date V isits Requested Visits Authorized [id number] New Request 10/08/2022 11/02/2023 1 1 Specialty Diagnoses / Procedures Referred By Contac t Referred To Contact Diagnoses Neuroendocrine cancer Cancer of cerebral meninges Procedures MRI BRAIN WITH PERFUSION VT MRI BRAIN Andrew Sher MD [address] [place] [address] Referral ID Status Reason Start Date Expiration Date V isits Requested Visits Authorized [id number] New Request 01/06/2023 01/31/2024 1 1 Specialty Diagnoses / Procedures Referred By Contac t Referred To Contact Diagnoses Neuroendocrine cancer Cancer of cerebral meninges Procedures NUC PET NEUROENDOCRINE CHG NUC THERAPY HYPERTHYROID SUBSEQUENT Andrew Bueno MD [address] [place] [address] Referral ID Status Reason Start Date Expiration Date V isits Requested Visits Authorized [id number] New Request 01/06/2023 01/31/2024 1 1 Reason Comments Continuity Of Care Specialty Diagnoses / Procedures Referred By Contac t Referred To Contact Diagnoses Neuroendocrine cancer Cancer of cerebral meninges Procedures RAD ONC SIMULATION Andrew Bueno MD [address] [place] [address] Referral ID Status Reason Start Date Expiration Date Visits Re quested Visits Authorized [id number] Closed 01/06/2023 01/31/2024 1 1 Reason Comments Consult Reason Comments On Treatment Visit Reason Comments On Treatment Visit Reason Comments Follow-up Specialty Diagnoses / Procedures Referred By Contac t Referred To Contact Diagnoses Cancer of cerebral meninges Procedures MRI BRAIN WITH PERFUSION [place] MRI BRAIN COMBO Kristine Blue, BRAND ENGINEER-DIRECTOR [employer] [address] [facility] [address] [place] [address] Referral ID Status Reason Start Date Expiration Date V isits Requested Visits Authorized [id number] New Request 05/19/2023 06/12/2024 1 1 Specialty Diagnoses / Procedures Referred By Contac t Referred To Contact Diagnoses Cancer of cerebral meninges Procedures MRI BRAIN WITH PERFUSION [place] MRI BRAIN Andrew Sher MD [address] [place] [address] Referral ID Status Reason Start Date Expiration Date V isits Requested Visits Authorized [id number] New Request 08/23/2023 09/16/2024 1 1 Reason Comments Follow-up Specialty Diagnoses / Procedures Referred By Contac t Referred To Contact Diagnoses Cancer of cerebral meninges Neuroendocrine cancer Procedures NUC PET NEUROENDOCRINE CHG PET IMAGING CT ATTENUATION SKULL BASE MID-THIGH Andrew Bueno MD [address] [place] [address] Referral ID Status Reason Start Date Expiration Date V isits Requested Visits Authorized [id number] New Request 11/29/2023 12/23/2024 1 1 Specialty Diagnoses / Procedures Referred By Contac t Referred To Contact Diagnoses Cancer of cerebral meninges Neuroendocrine cancer Procedures MRI BRAIN WITH PERFUSION CHG MRI BRAIN BRAIN STEM W/O W/CONTRAST MATERIAL Andrew Bueno MD [address] [place] [address] Referral ID Status Reason Start Date Expiration Date V isits Requested Visits Authorized [id number] New Request 11/29/2023 12/23/2024 1 1 Specialty Diagnoses / Procedures Referred By Contac t Referred To Contact Diagnoses Cancer of cerebral meninges Procedures MRI BRAIN WITH PERFUSION CHG MRI BRAIN BRAIN STEM W/O W/CONTRAST MATERIAL Kristine Bule APRN-DIRECTOR [employer] [address] [facility] [address] [place] [address] Referral ID Status Reason Start Date Expiration Date V isits Requested Visits Authorized [id number] New Request 03/14/2024 04/08/2025 1 1 Scheduled Active and Recently Administ ered Medications (unrecognized section and content) Medication Order 11/10/2024 11/11/2024 11/12/2024 AMIOdarone (PACERONE) tablet 200 mg 200 mg, Oral, DAILY, First dose on Tue11/08/24 at 1615, Until Discontinued 0840 (Given - Provider: Greta Yoder RN) 0927 (Given - Provider: Greta Yoder RN) 0831 (Given - Provider: Shanna Benavides, RN) apixaban (ELIQUIS) tablet 2.5 mg 2.5 mg, Oral, EVERY 12 HOURS, First dose on Tue11/08/24 at 2100, Until Discontinued, Due to the rapid onset of action of apixaban, no overlap is needed with other anticoagulants (e.g. enoxaparin, heparin)., Indications: Atrial Fibrillation, On hold since Tue11/08/2024 at 1610 until [...] RN) 1025 ($$New Bag$$ - Provider: Shanna Benavides, MICAH)1025 (Rate/Dose Verify - Provider: Shanna Benavides RN)1054 [...] mg/min. 0323 (Given - Provider: Sharlene Moses, RN) levETIRAcetam (KEPPRA) tablet 1,000 mg 1,000 mg, Oral, EVERY 12 HOURS, First dose on Tue11/10/24 at 0900, Until Discontinued 0839 (Given - Provider: Greta Yoder RN)2015 (Given - Provider: Sharlene Moses, RN) 09 (Given - Provider: Greta Yoder, MICAH)2099 (Given - Provider: Ashley Blake RN) 0831 (Given - Provider: Shanna Benavides, MICAH) Lisinopril (PRINIVIL) tablet 10 mg 10 mg, Oral, DAILY, First dose (after last modification) on Tue11/11/24 at 0900, Until Discontinued 09 (Given - Provider: Greta Yoder RN) 0831 (Given - Provider: Shanna Benavides, MICAH) Lisinopril (PRINIVIL) tablet 2.5 mg (CANCELED) 2.5 mg, Oral, DAILY, First dose on Tue11/10/24 at 0900, Until Discontinued 0839 (Given - Provider: Greta Yoder, MICAH) Polyethylene glycol (MIRALAX) packet 17 g 17 g, Oral, DAILY, First dose on Tue11/09/24 at 0900, Until Discontinued 0840 (Given - Provider: Greta Yoder RN) 09 (Given - Provider: Greta Yoder, MICAH) 0831 (Given - Provider: Shanna Benavides, MICAH) Spironolactone (ALDACTONE) tablet 25 mg (CANCELED) 25 mg, Oral, DAILY, First dose on Tue11/09/24 at 0900, Until Discontinued 0840 (Given - Provider: Greta Yoder, MICAH) PRN Medication Order 11/10/2024 11/11/2024 11/12/2024 Acetaminophen (TYLENOL) tablet 650 mg 650 mg, Oral, EVERY 6 HOURS NEEDED, Starting on Donita 11/08/24 at 1551, Until Tue11/12/24 at 1804, Mild Pain, Oral temp > 100.4 F, Headaches, Alternate with ibuprofen if ordered, Maximum dose of acetaminophen is 4000 mg from all sources in 24 hours or 2000 mg from all sources in patients with cirrhosis in 24 hours. 0840 (Given - Provider: Greta Yoder, RN)1724 (Given - Provider: Greta Yoder, MICAH) 0444 (Given - Provider: Sharlene Moses, RN)1407 (Given - Provider: Greta Yoder, RN) 1317 (Given - Provider: Shanna Benavides, [...] Until 11/12/24 at 1804, Nausea / Vomiting Or Ondansetron (ZOFRAN-ODT) disintegrating tablet 4 mgJump to med 4 mg, Oral, EVERY 6 HOURS NEEDED, Starting on Donita 11/08/24 at 1551, Until 11/12/24 at 1804, Nausea / Vomiting Dialysis Access Sites (unrec ognized section and content) Type Status Location Placement Date Removal Da te Arterial Line 11/16/22 1824 radial artery, left Inactive Left Wrist - Anterior 11/16/2022 0 11/17/2022 Arterial Line 11/16/22 0904 radial artery, right 20 gauge Inactive Right Wrist - Anterior 11/16/2022 3 INFORMATION SOURCE (unrecogn ized section and content) DATE CREATED AUTHOR 11/23/2024 [facility] DATE CREATED AUTHOR AUTHOR'S ORGANIZ ATION 11/30/2024 [facility] FOR RECORDS PERTAINING TO PATIENTS WHO ARE [...] BE BASED ON THE PRIMARY CLINICAL RECORDS. [employer] provides no warranty or guarantee of the accuracy or completeness of information in this document.
--- OUTSIDE RECORDS SUMMARY | 2024-12-04 01:40 | XMS RPT_ITS | CCD ---
Author Organization [facility] Care Team Providers Care Precision Honer Name Role Phone Dr. Monika Venegas Primary Care Provider Dr. Monika Venegas Referring Provider Dr. Rock Downing Attending Provider Monika Venegas MD Primary Care Provider Hugo, Dr. Jo-nAn Carias Admit Provider Dr. Jo-Ann Arias Attending [...] Provider Dr. Howard Rivera Other Provider Roof VP DIRECTOR OF FINANCE, VP DIRECTOR OF FINANCE-C Jagdish Basilio Other Provider Beasley VP DIRECTOR OF FINANCE, VP DIRECTOR OF FINANCE-C Kourtney Other Provider MAGALY Palomo Other Provider [...] Andrés DEL VALLE, Dr. Haynes Attending Provider Hugo TREJO, Dr. Jo-Ann Carias Admit Provider [...] 4 August 13, 2024 12:00am called to [facility] Start: 12-29-2022 End: 11-12-2024 take 1 [...] (suppress cancel msg)) take 1 capsule by [facility] once daily in the morning Multiple Vitamin [...] (ZOFRAN) injection 4 mg polyethylene glycol [id number] [id number] mg powder for oral solution (9 sources) [...] 2022 12:00am January 13, 2023 1:18pm sennosides, assisted 8.6 mg oral tablet (2 sources) Start: [...] 10-13-2022 Zinc 50 MG tablet Take by [facility]. 10/13/2022 Discontinued (Stop Taking at Discharge) Problems [...] (2 sources) Drug therapy finding; Translations: [Other jail (current) drug therapy] 07-19-2023 Episodic Other aftercare (3 sources) Other bed bug exterminator (current) drug therapy; Translations: [Long-term (current) use of other medications] Onset: 11-29-2024 07-19-2023 Episodic Other aftercare (5 sources) Long-term current use of anticoagulant; Translations: [terminal make up operator (current) use of anticoagulants] 11-07-2024 Episodic Comment on above: On Eliquis for PAF.. 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 Other aftercare (5 sources) Long-term current use of amiodarone; Translations: [Other jail (current) drug therapy] 07-19-2023 Episodic Other aftercare (2 sources) terminal make up operator (current) use of anticoagulants; Translations: [snf (current) use of anticoagulants] Onset: 11-29-2024 Episodic [...] since made a referral to neurosurgery with [facility]. Today I did share CT images [...] (Unsp spec) [#/Vol] 0.66 10*3/uL Low 0.83-4.51 [facility] Absolute neutrophil countOrd ered By: Hayden Sadler on 12-03-2024 Neutrophils (Bld) [#/Vol] 5.9 10*3/uL 2.0-7.7 [facility] Anion gap in Serum or Plasma Ordered By: Hayden Sadler on 12-03-2024 Anion gap [Moles/Vol] 10 mmol/L 5-[address] [facility] Automated lymphocyte count a s percentage of total leukocytesOrdered By: Hayden Sadler on 12-03-2024 Lymphocytes/100 WBC Auto (Unsp spec) 9.0 % Low 19-41 [facility] BUN/creatinine ratioOrdered By: Hayden Sadler on 12-03-2024 Urea nitrogen/Creatinine [Mass ratio] 22.8 mg/mg High 10-20 [facility] Basophil percentageOrdered B y: Hayden Sadler on 12-03-2024 Basophils/100 WBC (Bld) 0.3 % 0-1 [facility] Bilirubin Test strip Ql (U)O rdered By: Hayden Sadler on 12-03-2024 Bilirubin Ql (U) Negative Negative [facility] Bilirubin, totalOrdered By: Hayden Sadler on 12-03-2024 Bilirubin [Mass/Vol] 0.65 mg/dL 0.00-1.30 [facility] Carbon dioxide, total [Moles /volume] in Central venous bloodOrdered By: Hayden Sadler on 12-03-2024 CO2 [Moles/Vol] 22.8 mmol/L 21.0-32.0 [facility] Chloride assayOrdered By: Delfin Sadler on 12-03-2024 Chloride [Moles/Vol] 100 mmol/L 98-108 [facility] Eosinophil percentageOrdered By: Hayden Sadler on 12-03-2024 Eosinophils/100 WBC (Bld) 0.1 % 0-5 [facility] Erythrocyte distribution wid th ratioOrdered By: Hayden Sadler on 12-03-2024 Erythrocyte distribution width (RBC) [Ratio] 12.6 % 11.6-14.6 [facility] Erythrocyte distribution wid th standard deviationOrdered By: Hayden Sadler on 12-03-2024 Erythrocyte distribution width (RBC) [Ratio] 43.1 fl 35.1-43.9 [facility] Glomerular filtration rate ( GFR) estimation/1.73 sq m using serum, plasma, or whole bOrdered By: Hayden Sadler on 12-03-2024 GFR/1.73 sq M.predicted among non-blacks MDRD (S/P/Bld) [Vol rate/Area] 88 mL/min/{1.73_m2} >60 [facility] Comment on above: mL/min/1.73m2 CKD-EP I Creatinine Equation (2020) Hematocrit Auto (Bld) [Volum e fraction]Ordered By: Hayden Sadler on 12-03-2024 Hematocrit (Bld) [Volume fraction] 28.2 % Low 37-47 [facility] Hemoglobin measurementOrdere d By: Hayden Sadler on 12-03-2024 Hemoglobin (Bld) [Mass/Vol] 10.0 g/dL Low 12.0-15.0 [facility] Immature granulocytes/100 WB C Auto (Bld)Ordered By: Hayden Sadler on 12-03-2024 Immature granulocytes/100 WBC (Bld) 0.700 % 0.0-0.9 [facility] Comment on above: IG% - Immature Granu locytes (promyelocytes, myelocytes and metamyelocytes) > 1% indicates that a LEFT SHIFT is Present. Ketones Test strip Ql (U)Ord ered By: Hayden Sadler on 12-03-2024 Ketones Ql (U) 5 mg/dl High Negative [facility] - Chemistry and C hemistry - challengeOrdered By: Hayden Sadler on 12-03-2024 AST [Catalytic activity/Vol] 104 U/L High <32 [facility] Lipase measurementOrdered By : Haydenjanusz Sadler on 12-03-2024 Lipase [Catalytic activity/Vol] 68 U/L 13-75 [facility] Comment on above: Please note:LIPASE r evised reference range effective 23. New Lipase methodology. Expected to produce lower values than the previous assay method. NEW Reference Range: 13 - 75 U/L MCV (mean corpuscular volume ) determinationOrdered By: Hayden Sadler on 12-03-2024 MCV (RBC) [Entitic vol] 92.8 fL 81-99 [facility] Mean corpuscular hemoglobin (MCH) determinationOrdered By: Hayden Sadler on 12-03-2024 MCH (RBC) [Entitic mass] 32.9 pg High 27.0-32.0 [facility] Mean corpuscular hemoglobin concentration (MCHC) determinationOrdered By: Hayden Sadler on 12-03-2024 MCHC (RBC) [Mass/Vol] 35.5 g/dL 32-[address] [facility] Mean platelet volume determi nationOrdered By: Hayden Sadler on 12-03-2024 Platelet mean volume (Bld) [Entitic vol] 10.2 fL 6.2-12.0 [facility] Microscopic analysis of urin e for red blood cells (RBC)Ordered By: Hayden Sadler on 12-03-2024 Microscopic analysis of urine for red blood cells (RBC) 0-5 SEEN /hpf 0-5 [facility] Monocyte percentageOrdered B y: Hayden Sadler on 12-03-2024 Monocytes/100 WBC (Bld) 9.6 % 0-10 [facility] Mucus LM Ql (Urine sed)Order ed By: Hayden Sadler on 12-03-2024 Mucus Ql (Urine sed) 0 SEEN /hpf [facility] Neutrophil percentageOrdered By: Hayden Sadler on 12-03-2024 Neutrophils/100 WBC (Bld) 80.3 % High 47-70 [facility] Nitrite Test strip Ql (U)Ord ered By: Hayden Sadler on 12-03-2024 Nitrite Ql (U) Positive High Negative [facility] Nucleated red blood cell per centageOrdered By: Hayden Sadler on 12-03-2024 Nucleated RBC/100 WBC (Bld) [Ratio] 0 % 0-5 [facility] Platelet countOrdered By: Delfin Sadler on 12-03-2024 Platelets (Bld) [#/Vol] 197 10*3/uL 150-450 [facility] Potassium measurement (mass/ volume)Ordered By: Hayden Sadler on 12-03-2024 Potassium (Unsp spec) [Mass/Vol] 3.7 mmol/L 3.3-5.1 [facility] Protein Test strip Ql (U)Ord ered By: Hayden Sadler on 12-03-2024 Protein Ql (U) 15 mg/dl High Negative [facility] RBC Auto (Bld) [#/Vol]Ordere d By: Hayden Sadler on 12-03-2024 RBC (Bld) [#/Vol] 3.04 10*6/uL Low 4.2-5.4 [facility] Serum creatinine measurement (mass/volume)Ordered By: Hayden Sadler on 12-03-2024 Creatinine [Mass/Vol] 0.67 mg/dL Low 0.70-1.[address] [facility] Serum globulin measurementOr dered By: Hayden Sadler on 12-03-2024 Globulin (S) [Mass/Vol] 2.1 g/dL Low 2.2-4.2 [facility] Serum glucose measurement (m ass/volume)Ordered By: Hayden Sadler on 12-03-2024 Glucose [Mass/Vol] 106 mg/dL High 70-99 [facility] Serum or plasma alanine oliver otransferase (ALT) measurementOrdered By: Hayden Sadler on 12-03-2024 ALT [Catalytic activity/Vol] 282 U/L High <35 [facility] Serum or plasma albumin ena urement (mass/volume)Ordered By: Hayden Sadler on 12-03-2024 Albumin [Mass/Vol] 3.7 g/dL 3.4-4.8 [facility] Serum or plasma albumin/glob ulin mass ratioOrdered By: Hayden Sadler on 12-03-2024 Albumin/Globulin [Mass ratio] 1.8 {ratio} 0.9-2.4 [facility] Serum or plasma alkaline brenna sphatase measurementOrdered By: Hayden Sadler on 12-03-2024 ALP [Catalytic activity/Vol] 104 U/L 35-104 [facility] Serum or plasma calcium ena urement (mass/volume)Ordered By: Hayden Sadler on 12-03-2024 Calcium [Mass/Vol] 8.8 mg/dL 7.6-11.0 [facility] Serum or plasma urea nitroge n measurement (mass/volume)Ordered By: Hayden Sadler on 12-03-2024 Urea nitrogen [Mass/Vol] 15 mg/dL 4-19 [facility] Sodium levelOrdered By: Naomi Sadler on 12-03-2024 Sodium [Moles/Vol] 133 mmol/L 133-145 [facility] Squamous epithelial cells de tection in urine sediment by light microscopyOrdered By: Hayden Sadler on 12-03-2024 Epithelial cells.squamous LM Ql (Urine sed) 0 SEEN /hpf 5-10 [facility] Total proteinOrdered By: Sarita Sadler on 12-03-2024 Protein [Mass/Vol] 5.8 g/dL Low 5.9-8.4 [facility] Urine clarityOrdered By: Sarita Sadler on 12-03-2024 Clarity (U) Clear Clear [facility] Urine color determinationOrd ered By: Hayden Sadler on 12-03-2024 Color (U) Straw Yellow [facility] Urine glucose detectionOrder ed By: Hayden Sadler on 12-03-2024 Glucose Ql (U) Normal mg/dl Normal [facility] Urine leukocyte esterase det ection by dipstickOrdered By: Hayden Sadler on 12-03-2024 Leukocyte esterase Test strip Ql (U) Negative Negative [facility] Urine pHOrdered By: Hayden briscoe on 12-03-2024 pH (U) 7.0 [pH] 5.0 - 8.0 [facility] Urine sediment bacteria coun t by microscopy (number/high power field)Ordered By: Hayden Sadler on 12-03-2024 Bacteria LM.HPF (Urine sed) [#/Area] 3 /[HPF] None Seen [facility] Urine specific gravity measu rementOrdered By: Hayden Sadler on 12-03-2024 Specific gravity (U) [Rel density] 1.010 1.002-1.030 [facility] Urine urobilinogen measureme ntOrdered By: Hayden Sadler on 12-03-2024 Urobilinogen Ql (U) Normal mg/dl Normal [facility] White blood cell (WBC) count Ordered By: Hayden Sadler on 12-03-2024 WBC (Bld) [#/Vol] 7.3 10*3/uL 4.4-11.0 [facility] White blood cell countOrdere d By: Hayden Sadler on 12-03-2024 White blood cell count 0-5 SEEN /hpf 0-5 [facility] Anion gap in Serum or Plasma Ordered By: Jo-Ann Arias on 11-29-2024 Anion gap [Moles/Vol] 10 mmol/L 5-[address] [facility] BUN/creatinine ratioOrdered By: Jo-Ann Arias on 11-29-2024 Urea nitrogen/Creatinine [Mass ratio] 12.2 mg/mg - [facility] Basic Metabolic Profile (BMP )on 11-29-2024 BUN/CRE 12.2 RATIO Normal - [facility] Comment on above: Performed By: #### L 500.2500 #### [facility] [address] [place], [address] Calcium [Mass/Vol] 8.8 mg/dL Normal 7.6-11.0 [facility] Comment on above: Performed By: #### L 500.2500 #### [facility] [address] [place], [address] Chloride [Moles/Vol] 101 mmol/L Normal 98-108 [facility] Comment on above: Performed By: #### L 500.2500 #### [facility] [address] [place], [address] CO2 [Moles/Vol] 23.5 mmol/L Normal 21.0-32.0 [facility] Comment on above: Performed By: #### L [id number] #### [facility] [address] [place], [address] Creatinine [Mass/Vol] 0.88 mg/dL Normal 0.70-1.[address] [facility] Comment on above: Performed By: #### L 500.2500 #### [facility] [address] [place], [address] ECRCL 36.01 ml/min Low 50-250 [facility] Comment on above: Performed By: #### L 500.2500 #### [facility] [address] [place], [address] GAP 10 Normal 5-15 [facility] Comment on above: Performed By: #### L 500.2500 #### [facility] [address] [place], [address] GFR/1.73 sq M.predicted among non-blacks MDRD (S/P/Bld) [Vol rate/Area] 66 mL/min/{1.73_m2} Normal >60 [facility] Comment on above: Result Comment: mL/m in/1.73m2 CKD-EPI Creatinine Equation (2020) Performed By: #### L 500.2500 #### [facility] [address] [place], [address] Glucose [Mass/Vol] 114 mg/dL High 70-99 [facility] Comment on above: Performed By: #### L 500.2500 #### [facility] [address] [place], [address] Potassium [Moles/Vol] 4.0 mmol/L Normal 3.3-5.[address] [facility] Comment on above: Performed By: #### L [id number] #### [facility] [address] [place], [address] Sodium [Moles/Vol] 135 mmol/L Normal 133-145 [facility] Comment on above: Performed By: #### L 500.2500 #### [facility] [address] [place], [address] Urea nitrogen [Mass/Vol] 11 mg/dL Normal 4-19 [facility] Comment on above: Performed By: #### L 500.2500 #### [facility] [address] [place], [address] Carbon dioxide, total [Moles /volume] in Central venous bloodOrdered By: Jo-Ann Arias on 11-29-2024 CO2 [Moles/Vol] 23.5 mmol/L 21.0-32.0 [facility] Chloride assayOrdered By: Morro Arias on 11-29-2024 Chloride [Moles/Vol] 101 mmol/L 98-108 [facility] Glomerular filtration rate ( GFR) estimation/1.73 sq m using serum, plasma, or whole bOrdered By: Jo-Ann Arias on 11-29-2024 GFR/1.73 sq M.predicted among non-blacks MDRD (S/P/Bld) [Vol rate/Area] 66 mL/min/{1.73_m2} >60 [facility] Comment on above: mL/min/1.73m2 CKD-EP I Creatinine Equation (2020) Potassium measurement (mass/ volume)Ordered By: Jo-Ann Arias on 11-29-2024 Potassium (Unsp spec) [Mass/Vol] 4.0 mmol/L 3.3-5.1 [facility] Serum creatinine measurement (mass/volume)Ordered By: Jo-Ann Arias on 11-29-2024 Creatinine [Mass/Vol] 0.88 mg/dL 0.70-1.[address] [facility] Serum glucose measurement (m ass/volume)Ordered By: Jo-Ann Arias on 11-29-2024 Glucose [Mass/Vol] 114 mg/dL High 70-99 [facility] Serum or plasma calcium ena urement (mass/volume)Ordered By: Jo-Ann Arias on 11-29-2024 Calcium [Mass/Vol] 8.8 mg/dL 7.6-11.0 [facility] Serum or plasma urea nitroge n measurement (mass/volume)Ordered By: Jo-Ann Arias on 11-29-2024 Urea nitrogen [Mass/Vol] 11 mg/dL 4-19 [facility] Sodium levelOrdered By: Jo-Ann Arias on 11-29-2024 Sodium [Moles/Vol] 135 mmol/L 133-145 [facility] Basic Metabolic Profile (BMP )on 11-28-2024 BUN/CRE 12.9 RATIO Normal 10-20 [facility] Comment on above: Performed By: #### L 500.2500 #### [facility] [address] [place], [address] Calcium [Mass/Vol] 8.6 mg/dL Normal 7.6-11.0 [facility] Comment on above: Performed By: #### L 500.2500 #### [facility] [address] [place], [address] Chloride [Moles/Vol] 92 mmol/L Low 98-108 [facility] Comment on above: Performed By: #### L 500.2500 #### [facility] [address] [place], [address] CO2 [Moles/Vol] 23.2 mmol/L Normal 21.0-32.0 [facility] Comment on above: Performed By: #### L 500.2500 #### [facility] [address] [place], [address] Creatinine [Mass/Vol] 0.77 mg/dL Normal 0.70-1.[address] [facility] Comment on above: Performed By: #### L 500.2500 #### [facility] [address] [place], [address] ECRCL 39.62 ml/min Low 50-250 [facility] Comment on above: Performed By: #### L 500.2500 #### [facility] [address] [place], [address] GAP 10 Normal 5-15 [facility] Comment on above: Performed By: #### L 500.2500 #### [facility] [address] [place], [address] GFR/1.73 sq M.predicted among non-blacks MDRD (S/P/Bld) [Vol rate/Area] 77 mL/min/{1.73_m2} Normal >60 [facility] Comment on above: Result Comment: mL/m in/1.73m2 CKD-EPI Creatinine Equation (2020) Performed By: #### L 500.2500 #### [facility] [address] [place], [address] Glucose [Mass/Vol] 95 mg/dL Normal 70-99 [facility] Comment on above: Performed By: #### L 500.2500 #### [facility] [address] [place], [address] Potassium [Moles/Vol] 3.8 mmol/L Normal 3.3-5.[address] [facility] Comment on above: Performed By: #### L 500.2500 #### [facility] [address] [place], [address] Sodium [Moles/Vol] 125 mmol/L Low 133-145 [facility] Comment on above: Performed By: #### L 500.2500 #### [facility] [address] [place], [address] Urea nitrogen [Mass/Vol] 10 mg/dL Normal 4-19 [facility] Comment on above: Performed By: #### L 500.2500 #### [facility] [address] [place], [address] Osmolality urOrdered By: Alyssa Arias on 11-28-2024 Osmolality (U) [Osmolality] 519 mOsm/KG >50 [facility] Comment on above: Normal Urine Referen ce Ranges Random: 50 - 1200 mOsm/kg H20 depending on fluid intake Random: >850 mOsm/kg after 12 hour fluid restriction 24 hour: ~300 - 900 mOsm/kg H2O Osmolality, Serumon 11-29-19 25 OSMOLALITY,SER 281 mOsm/KG Normal 280-301 [facility] Comment on above: Performed By: #### L 500.2500 #### [facility] [address] [place], [address] Osmolality, Urineon 11-29-19 25 OSMOLALITY,UR 519 mOsm/KG Normal [facility] Comment on above: Result Comment: Normal Urine Reference Ranges Random: 50 - 1200 mOsm/kg H20 depending on fluid intake Random: >850 mOsm/kg after 12 hour fluid restriction 24 hour: 300 - 900 mOsm/kg H2O Performed By: #### L 499.0043 #### [facility] [address] [place], [address] Renal Profileon 11-28-2024 Albumin [Mass/Vol] 3.6 g/dL Normal 3.4-4.8 [facility] Comment on above: Performed By: #### L 500.3600 #### [facility] [address] [place], [address] BUN/CRE 13.0 RATIO Normal 10-20 [facility] Comment on above: Performed By: #### L 500.3600 #### [facility] [address] [place], [address] Calcium [Mass/Vol] 8.9 mg/dL Normal 7.6-11.0 [facility] Comment on above: Performed By: #### L 500.3600 #### [facility] [address] [place], [address] Chloride [Moles/Vol] 92 mmol/L Low 98-108 [facility] Comment on above: Performed By: #### L 500.3600 #### [facility] [address] [place], [address] CO2 [Moles/Vol] 22.8 mmol/L Normal 21.0-32.0 [facility] Comment on above: Performed By: #### L 500.3600 #### [facility] [address] [place], [address] Creatinine [Mass/Vol] 0.75 mg/dL Normal 0.70-1.[address] [facility] Comment on above: Performed By: #### L 500.3600 #### [facility] [address] [place], [address] ECRCL 39.62 ml/min Low 50-250 [facility] Comment on above: Performed By: #### L 500.3600 #### [facility] [address] [place], [address] GAP 11 Normal 5-15 [facility] Comment on above: Performed By: #### L 500.3600 #### [facility] [address] [place], [address] GFR/1.73 sq M.predicted among non-blacks MDRD (S/P/Bld) [Vol rate/Area] 80 mL/min/{1.73_m2} Normal >60 [facility] Comment on above: Result Comment: mL/m in/1.73m2 CKD-EPI Creatinine Equation (2020) Performed By: #### L 500.3600 #### [facility] [address] [place], [address] Glucose [Mass/Vol] 94 mg/dL Normal 70-99 [facility] Comment on above: Performed By: #### L 500.3600 #### [facility] [address] [place], [address] Phosphate [Mass/Vol] 3.5 mg/dL Normal 2.7-4.5 [facility] Comment on above: Performed By: #### L 500.3600 #### [facility] [address] [place], [address] Potassium [Moles/Vol] 3.8 mmol/L Normal 3.3-5.[address] [facility] Comment on above: Performed By: #### L 500.3600 #### [facility] [address] [place], [address] Sodium [Moles/Vol] 126 mmol/L Low 133-145 [facility] Comment on above: Performed By: #### L 500.3600 #### [facility] [address] [place], [address] Urea nitrogen [Mass/Vol] 10 mg/dL Normal 4-19 [facility] Comment on above: Performed By: #### L 500.3600 #### [facility] [address] [place], [address] Serum or plasma albumin ena urement (mass/volume)Ordered By: Jo-Ann Arias on 11-28-2024 Albumin [Mass/Vol] 3.6 g/dL 3.4-4.8 [facility] Urine Cultureon 11-28-2024 [facility] Urine Culture Urine Culture Pseudomonas aeruginosa Forbes Count 1000-10,000 Pseudomonas aeruginosa: REACTION Aztreonam Islt KB 22 Pseudomonas aeruginosa: REACTION Cefepime Islt PJ 2 Ciprofloxacin Islt PJ 0.12 S levoFLOXacin Islt PJ 0.25 S Meropenem Islt PJ 1 S Pip+Tazo Islt PJ 8 S Pseudomonas aeruginosa: REACTION Amikacin Islt PJ 4 Imipenem Islt PJ <=0.5 S Tobramycin Islt PJ 8 R Normal [facility] Comment on above: Performed By: #### L 500.2500 #### [facility] [place], [address] Urine Sodiumon 11-28-2024 Sodium (U) [Moles/Vol] 48 mmol/L Normal Not Establ. [facility] Comment on above: Performed By: #### L 506.0400, L501.9520, L501.71501 #### [facility] [address] [place], [address] Urine sodium measurement (mo les/volume)Ordered By: Jo-Ann Arias on 11-28-2024 Sodium (U) [Moles/Vol] 48 mmol/L Not Establ. [facility] Basic Metabolic Profile (BMP )on 11-27-2024 BUN/CRE 13.8 RATIO Normal 10-20 [facility] Comment on above: Performed By: #### L 500.2500 #### [facility] [address] [place], [address] Calcium [Mass/Vol] 8.7 mg/dL Normal 7.6-11.0 [facility] Comment on above: Performed By: #### L 500.2500 #### [facility] [address] [place], [address] Chloride [Moles/Vol] 93 mmol/L Low 98-108 [facility] Comment on above: Performed By: #### L 500.2500 #### [facility] [address] [place], [address] CO2 [Moles/Vol] 22.7 mmol/L Normal 21.0-32.0 [facility] Comment on above: Performed By: #### L 500.2500 #### [facility] [address] [place], [address] Creatinine [Mass/Vol] 0.77 mg/dL Normal 0.70-1.[address] [facility] Comment on above: Performed By: #### L 500.2500 #### [facility] [address] [place], [address] ECRCL 39.62 ml/min Low 50-250 [facility] Comment on above: Performed By: #### L 500.2500 #### [facility] [address] [place], [address] GAP 11 Normal 5-15 [facility] Comment on above: Performed By: #### L 500.2500 #### [facility] [address] [place], [address] GFR/1.73 sq M.predicted among non-blacks MDRD (S/P/Bld) [Vol rate/Area] 78 mL/min/{1.73_m2} Normal >60 [facility] Comment on above: Result Comment: mL/m in/1.73m2 CKD-EPI Creatinine Equation (2020) Performed By: #### L 500.2500 #### [facility] [address] [place], [address] Glucose [Mass/Vol] 93 mg/dL Normal 70-99 [facility] Comment on above: Performed By: #### L 500.2500 #### [facility] [address] [place], [address] Potassium [Moles/Vol] 3.8 mmol/L Normal 3.3-5.[address] [facility] Comment on above: Performed By: #### L 500.2500 #### [facility] [address] [place], [address] Sodium [Moles/Vol] 127 mmol/L Low 133-145 [facility] Comment on above: Performed By: #### L 500.2500 #### [facility] [address] [place], [address] Urea nitrogen [Mass/Vol] 11 mg/dL Normal 4-19 [facility] Comment on above: Performed By: #### L 500.2500 #### [facility] [address] [place], [address] CBC-Complete Blood Cnt No Di ffon 11-27-2024 Erythrocyte distribution width (RBC) [Ratio] 12.5 % Normal 11.6-14.6 [facility] Comment on above: Performed By: #### L 500.2500 #### [facility] [address] [place], [address] Hematocrit (Bld) [Volume fraction] 27.3 % Low 37-47 [facility] Comment on above: Performed By: #### L 500.2500 #### [facility] [address] [place], [address] Hemoglobin (Bld) [Mass/Vol] 9.9 g/dL Low 12.0-15.0 [facility] Comment on above: Performed By: #### L 500.2500 #### [facility] [address] [place], [address] MCH (RBC) [Entitic mass] 32.6 pg High 27.0-32.0 [facility] Comment on above: Performed By: #### L 500.2500 #### [facility] [address] [place], [address] MCHC (RBC) [Mass/Vol] 36.3 g/dL High 32-[address] [facility] Comment on above: Performed By: #### L 500.2500 #### [facility] [address] [place], [address] MCV (RBC) [Entitic vol] 89.8 fL Normal 81-99 [facility] Comment on above: Performed By: #### L 500.2500 #### [facility] [address] [place], [address] Platelet mean volume (Bld) [Entitic vol] 10.2 fL Normal 6.2-12.0 [facility] Comment on above: Performed By: #### L 500.2500 #### [facility] [address] [place], [address] Platelets (Bld) [#/Vol] 226 10*3/uL Normal 150-450 [facility] Comment on above: Performed By: #### L 500.2500 #### [facility] [address] [place], [address] RBC (Bld) [#/Vol] 3.04 10*6/uL Low 4.2-5.4 [facility] Comment on above: Performed By: #### L 500.2500 #### [facility] [address] [place], [address] RDW SD 40.9 fl Normal 35.1-43.9 [facility] Comment on above: Performed By: #### L 500.2500 #### [facility] [address] [place], [address] WBC (Bld) [#/Vol] 8.6 10*3/uL Normal 4.4-11.0 [facility] Comment on above: Performed By: #### L 500.2500 #### [facility] [address] [place], [address] Discharge Instructionon 11-05 Discharge Instruction [facility] Medical Records Department [address] [facility] [place] [address] Instructions for Home/Discharge Instructions 11/27/24 1602 MR#: [id number] Acct: [id number] Name: SARAH MCGUIRE Rep #: [id number] : 1945 79 From: Jo-Ann Arias DO [...] sodium up they have to see a maintenance plumber(kidney doctor) to help manage the medications. I [...] strokes due to atrial fibrillation (AFIB). OFFICE: [phone] CELL: [phone] NURSES STATION ON REHAB: [phone] Discharge Orders/Prescriptions Prescriptions: New hydralazine 50 mg [...] PO LINDA (more content not included)... Normal [facility] Erythrocyte distribution wid th ratioOrdered By: Jo-Ann Arias on 11-27-2024 Erythrocyte distribution width (RBC) [Ratio] 12.5 % 11.6-14.6 [facility] Erythrocyte distribution wid th standard deviationOrdered By: Jo-Ann Arias on 11-27-2024 Erythrocyte distribution width (RBC) [Ratio] 40.9 fl 35.1-43.9 [facility] Hematocrit Auto (Bld) [Volum e fraction]Ordered By: Jo-Ann Arias on 11-27-2024 Hematocrit (Bld) [Volume fraction] 27.3 % Low 37-47 [facility] Hemoglobin measurementOrdere d By: Jo-Ann Arias on 11-27-2024 Hemoglobin (Bld) [Mass/Vol] 9.9 g/dL Low 12.0-15.0 [facility] MCV (mean corpuscular volume ) determinationOrdered By: Jo-Ann Arias on 11-27-2024 MCV (RBC) [Entitic vol] 89.8 fL 81-99 [facility] Mean corpuscular hemoglobin (MCH) determinationOrdered By: Jo-Ann Hugo on 11-27-2024 MCH (RBC) [Entitic mass] 32.6 pg High 27.0-32.0 [facility] Mean corpuscular hemoglobin concentration (MCHC) determinationOrdered By: Jo-Ann Hsiehjenny on 11-27-2024 MCHC (RBC) [Mass/Vol] 36.3 g/dL High 32-[address] [facility] Mean platelet volume determi nationOrdered By: Jo-Ann Hugo on 11-27-2024 Platelet mean volume (Bld) [Entitic vol] 10.2 fL 6.2-12.0 [facility] Platelet countOrdered By: Morro zaidi Hugo on 11-27-2024 Platelets (Bld) [#/Vol] 226 10*3/uL 150-450 [facility] RBC Auto (Bld) [#/Vol]Ordere d By: Jo-Ann Hugo on 11-27-2024 RBC (Bld) [#/Vol] 3.04 10*6/uL Low 4.2-5.4 [facility] White blood cell (WBC) count Ordered By: Jo-Ann Hugo on 11-27-2024 WBC (Bld) [#/Vol] 8.6 10*3/uL 4.4-11.0 [facility] Basic Metabolic Profile (BMP )on 11-26-2024 BUN/CRE 12.8 RATIO Normal 10-20 [facility] Comment on above: Performed By: #### L 500.2500 #### [facility] [address] [place], [address] Calcium [Mass/Vol] 8.8 mg/dL Normal 7.6-11.0 [facility] Comment on above: Performed By: #### L 500.2500 #### [facility] [address] [place], [address] Chloride [Moles/Vol] 95 mmol/L Low 98-108 [facility] Comment on above: Performed By: #### L 500.2500 #### [facility] [address] [place], [address] CO2 [Moles/Vol] 22.9 mmol/L Normal 21.0-32.0 [facility] Comment on above: Performed By: #### L 500.2500 #### [facility] [address] [place], [address] Creatinine [Mass/Vol] 0.70 mg/dL Normal 0.70-1.[address] [facility] Comment on above: Performed By: #### L 500.2500 #### [facility] [address] [place], [address] ECRCL 39.62 ml/min Low 50-250 [facility] Comment on above: Performed By: #### L 500.2500 #### [facility] [address] [place], [address] GAP 10 Normal 5-15 [facility] Comment on above: Performed By: #### L 500.2500 #### [facility] [address] [place], [address] GFR/1.73 sq M.predicted among non-blacks MDRD (S/P/Bld) [Vol rate/Area] 87 mL/min/{1.73_m2} Normal >60 [facility] Comment on above: Result Comment: mL/m in/1.73m2 CKD-EPI Creatinine Equation (2020) Performed By: #### L 500.2500 #### [facility] [address] [place], [address] Glucose [Mass/Vol] 101 mg/dL High 70-99 [facility] Comment on above: Performed By: #### L 500.2500 #### [facility] [address] [place], [address] Potassium [Moles/Vol] 4.1 mmol/L Normal 3.3-5.[address] [facility] Comment on above: Performed By: #### L 500.2500 #### [facility] [address] [place], [address] Sodium [Moles/Vol] 127 mmol/L Low 133-145 [facility] Comment on above: Performed By: #### L 500.2500 #### [facility] [address] [place], [address] Urea nitrogen [Mass/Vol] 9 mg/dL Normal 4-19 [facility] Comment on above: Performed By: #### L 500.2500 #### [facility] [address] [place], [address] Urine cultureOrdered By: Alyssa Arias on 11-25-2024 Bacteria identified Cx Nom (U) Pseudomonas aeruginosa Abnormal [facility] Basic Metabolic Profile (BMP )on 11-24-2024 BUN/CRE 12.6 RATIO Normal 10-20 [facility] Comment on above: Performed By: #### L 500.2500 #### [facility] [address] [facility] [place], [address] Calcium [Mass/Vol] 8.7 mg/dL Normal 7.6-11.0 [facility] Comment on above: Performed By: #### L 500.2500 #### [facility] [address] [place], [address] Chloride [Moles/Vol] 97 mmol/L Low 98-108 [facility] Comment on above: Performed By: #### L 500.2500 #### [facility] [address] [place], [address] CO2 [Moles/Vol] 20.7 mmol/L Low 21.0-32.0 [facility] Comment on above: Performed By: #### L 500.2500 #### [facility] [address] [place], [address] Creatinine [Mass/Vol] 0.68 mg/dL Low 0.70-1.[address] [facility] Comment on above: Performed By: #### L 500.2500 #### [facility] [address] [place], [address] ECRCL 39.62 ml/min Low 50-250 [facility] Comment on above: Performed By: #### L 500.2500 #### [facility] [address] [place], [address] GAP 9 Normal 5-15 [facility] Comment on above: Performed By: #### L 500.2500 #### [facility] [address] [place], [address] GFR/1.73 sq M.predicted among non-blacks MDRD (S/P/Bld) [Vol rate/Area] 88 mL/min/{1.73_m2} Normal >60 [facility] Comment on above: Result Comment: mL/m in/1.73m2 CKD-EPI Creatinine Equation (2020) Performed By: #### L 500.2500 #### [facility] [address] [place], [address] Glucose [Mass/Vol] 92 mg/dL Normal 70-99 [facility] Comment on above: Performed By: #### L 500.2500 #### [facility] [address] [place], [address] Potassium [Moles/Vol] 3.9 mmol/L Normal 3.3-5.[address] [facility] Comment on above: Performed By: #### L 500.2500 #### [facility] [address] [place], [address] Sodium [Moles/Vol] 127 mmol/L Low 133-145 [facility] Comment on above: Performed By: #### L 500.2500 #### [facility] [address] [place], [address] Urea nitrogen [Mass/Vol] 9 mg/dL Normal 4-19 [facility] Comment on above: Performed By: #### L 500.2500 #### [facility] [address] [place], [address] Bilirubin Test strip Ql (U)O rdered By: Jo-Ann Hugo on 11-24-2024 Bilirubin Ql (U) Negative Negative [facility] Ketones Test strip Ql (U)Ord ered By: Jo-Ann Hugo on 11-24-2024 Ketones Ql (U) Negative Negative [facility] Microscopic analysis of urin e for red blood cells (RBC)Ordered By: Jo-Ann Arias on 11-24-2024 Microscopic analysis of urine for red blood cells (RBC) 0-5 SEEN /hpf 0-5 [facility] Mucus LM Ql (Urine sed)Order ed By: Jo-Ann Arias on 11-24-2024 Mucus Ql (Urine sed) 0 SEEN /hpf [facility] Protein Test strip Ql (U)Ord ered By: Jo-Ann Arias on 11-24-2024 Protein Ql (U) 15 mg/dl High Negative [facility] Squamous epithelial cells de tection in urine sediment by light microscopyOrdered By: Jo-Ann Arias on 11-24-2024 Epithelial cells.squamous LM Ql (Urine sed) 0 SEEN /hpf 5-10 [facility] Urinalysis, Completeon 11-24 RBC 0-5 SEEN Normal 0-5 [facility] Comment on above: Order Comment: MARILYN TER SPECIMEN Performed By: #### L 400.0001 #### [facility] [address] [place], [address] WBC 5-10 SEEN Normal 0-5 [facility] Comment on above: Order Comment: MARILYN TER SPECIMEN Performed By: #### L 400.0001 #### [facility] [address] [place], [address] BILIRUBIN URINE Negative Normal Negative [facility] Comment on above: Order Comment: MARILYN TER SPECIMEN Performed By: #### L 400.0001 #### [facility] [address] [place], [address] GLUCOSE, UR Normal Normal Normal [facility] Comment on above: Order Comment: MARILYN TER SPECIMEN Performed By: #### L 400.0001 #### [facility] [address] [place], [address] KETONE UR Negative Normal Negative [facility] Comment on above: Order Comment: MARILYN TER SPECIMEN Performed By: #### L 400.0001 #### [facility] [address] [place], [address] LEUK ESTERASE 100 /ul Abnormal Negative [facility] Comment on above: Order Comment: MARILYN TER SPECIMEN Performed By: #### L 400.0001 #### [facility] [address] [place], [address] OCCULT BLOOD-UR Negative Normal Negative [facility] Comment on above: Order Comment: MARILYN TER SPECIMEN Performed By: #### L 400.0001 #### [facility] [address] [place], [address] pH UR 6.0 Normal 5.0 - 8.0 [facility] Comment on above: Order Comment: MARILYN TER SPECIMEN Performed By: #### L 400.0001 #### [facility] [address] [place], [address] PROT DIPSTX 15 mg/dl Abnormal Negative [facility] Comment on above: Order Comment: MARILYN TER SPECIMEN Performed By: #### L 400.0001 #### [facility] [address] [place], [address] SP.GR. DIPSTX 1.020 Normal 1.002-1.030 [facility] Comment on above: Order Comment: MARILYN TER SPECIMEN Performed By: #### L 400.0001 #### [facility] [address] [place], [address] UROBILI Normal Normal Normal [facility] Comment on above: Order Comment: MARILYN TER SPECIMEN Performed By: #### L 400.0001 #### [facility] [address] [place], [address] BACTERIA 0 SEEN Normal None Seen [facility] Comment on above: Order Comment: MARILYN TER SPECIMEN Performed By: #### L 400.0001 #### [facility] [address] [place], [address] EPI,SQUAMOUS 0 SEEN Normal 5-10 [facility] Comment on above: Order Comment: MARILYN TER SPECIMEN Performed By: #### L 400.0001 #### [facility] [address] [place], [address] Mucus Ql (Urine sed) 0 SEEN Normal [facility] Comment on above: Order Comment: MARILYN TER SPECIMEN Performed By: #### L 400.0001 #### [facility] [address] [place], [address] Urine clarityOrdered By: Alyssa Arias on 11-24-2024 Clarity (U) Clear Clear [facility] Comment on above: Order Comment: MARILYN TER SPECIMEN Performed By: #### L 400.0001 #### [facility] [address] [place], [address] Urine color determinationOrd ered By: Jo-Ann Arias on 11-24-2024 Color (U) Yellow Yellow [facility] Comment on above: Order Comment: MARILYN TER SPECIMEN Performed By: #### L 400.0001 #### [facility] [address] [place], [address] Urine glucose detectionOrder ed By: Jo-Ann Arias on 11-24-2024 Glucose Ql (U) Normal mg/dl Normal [facility] Urine leukocyte esterase det ection by dipstickOrdered By: Jo-Ann Arias on 11-24-2024 Leukocyte esterase Test strip Ql (U) 100 /ul High Negative [facility] Urine nitrite test by dipsti ckOrdered By: Jo-Ann Arias on 11-24-2024 Nitrite Ql (U) Negative Negative [facility] Comment on above: Order Comment: MARILYN TER SPECIMEN Performed By: #### L 400.0001 #### [facility] [address] [place], [address] Urine pHOrdered By: Jo-Ann Hernández olivia on 11-24-2024 pH (U) 6.0 [pH] 5.0 - 8.0 [facility] Urine sediment bacteria coun t by microscopy (number/high power field)Ordered By: Jo-Ann Arias on 11-24-2024 Bacteria LM.HPF (Urine sed) [#/Area] 0 /[HPF] None Seen [facility] Urine specific gravity measu rementOrdered By: Jo-Ann Hsiehjenny on 11-24-2024 Specific gravity (U) [Rel density] 1.020 1.002-1.030 [facility] Urine urobilinogen measureme ntOrdered By: Jo-Ann Hsiehjenny on 11-24-2024 Urobilinogen Ql (U) Normal mg/dl Normal [facility] White blood cell countOrdere d By: Jo-Ann Hsiehjenny on 11-24-2024 White blood cell count 5-10 SEEN /hpf 0-5 [facility] Basic Metabolic Profile (BMP )on 11-22-2024 BUN/CRE 14.8 RATIO Normal 10-20 [facility] Comment on above: Performed By: #### L 500.2500 #### [facility] [address] [place], [address] Calcium [Mass/Vol] 8.8 mg/dL Normal 7.6-11.0 [facility] Comment on above: Performed By: #### L 500.2500 #### [facility] [address] [place], [address] Chloride [Moles/Vol] 98 mmol/L Normal 98-108 [facility] Comment on above: Performed By: #### L 500.2500 #### [facility] [address] [place], [address] CO2 [Moles/Vol] 21.4 mmol/L Normal 21.0-32.0 [facility] Comment on above: Performed By: #### L 500.2500 #### [facility] [address] [place], [address] Creatinine [Mass/Vol] 0.76 mg/dL Normal 0.70-1.[address] [facility] Comment on above: Performed By: #### L 500.2500 #### [facility] [address] [place], [address] ECRCL 39.62 ml/min Low 50-250 [facility] Comment on above: Performed By: #### L 500.2500 #### [facility] [address] [place], [address] GAP 10 Normal 5-15 [facility] Comment on above: Performed By: #### L 500.2500 #### [facility] [address] [place], [address] GFR/1.73 sq M.predicted among non-blacks MDRD (S/P/Bld) [Vol rate/Area] 79 mL/min/{1.73_m2} Normal >60 [facility] Comment on above: Result Comment: mL/m in/1.73m2 CKD-EPI Creatinine Equation (2020) Performed By: #### L 500.2500 #### [facility] [address] [place], [address] Glucose [Mass/Vol] 95 mg/dL Normal 70-99 [facility] Comment on above: Performed By: #### L 500.2500 #### [facility] [address] [place], [address] Potassium [Moles/Vol] 4.3 mmol/L Normal 3.3-5.[address] [facility] Comment on above: Performed By: #### L 500.2500 #### [facility] [address] [place], [address] Sodium [Moles/Vol] 129 mmol/L Low 133-145 [facility] Comment on above: Performed By: #### L 500.2500 #### [facility] [address] [place], [address] Urea nitrogen [Mass/Vol] 11 mg/dL Normal 4-19 [facility] Comment on above: Performed By: #### L 500.2500 #### [facility] [address] [place], [address] Basic Metabolic Profile (BMP )on 11-19-2024 BUN/CRE 32.5 RATIO High 10-20 [facility] Comment on above: Performed By: #### L 500.2500 #### [facility] [address] [place], [address] Calcium [Mass/Vol] 9.2 mg/dL Normal 7.6-11.0 [facility] Comment on above: Performed By: #### L 500.2500 #### [facility] [address] [place], [address] Chloride [Moles/Vol] 103 mmol/L Normal 98-108 [facility] Comment on above: Performed By: #### L 500.2500 #### [facility] [address] [place], [address] CO2 [Moles/Vol] 20.4 mmol/L Low 21.0-32.0 [facility] Comment on above: Performed By: #### L 500.2500 #### [facility] [address] [place], [address] Creatinine [Mass/Vol] 0.84 mg/dL Normal 0.70-1.[address] [facility] Comment on above: Performed By: #### L 500.2500 #### [facility] [address] [place], [address] ECRCL 37.73 ml/min Low 50-250 [facility] Comment on above: Performed By: #### L 500.2500 #### [facility] [address] [place], [address] GAP 11 Normal 5-15 [facility] Comment on above: Performed By: #### L 500.2500 #### [facility] [address] [place], [address] GFR/1.73 sq M.predicted among non-blacks MDRD (S/P/Bld) [Vol rate/Area] 70 mL/min/{1.73_m2} Normal >60 [facility] Comment on above: Result Comment: mL/m in/1.73m2 CKD-EPI Creatinine Equation (2020) Performed By: #### L 500.2500 #### [facility] [address] [place], [address] Glucose [Mass/Vol] 138 mg/dL High 70-99 [facility] Comment on above: Performed By: #### L 500.2500 #### [facility] [address] [place], [address] Potassium [Moles/Vol] 4.3 mmol/L Normal 3.3-5.[address] [facility] Comment on above: Performed By: #### L 500.2500 #### [facility] [address] [place], [address] Sodium [Moles/Vol] 134 mmol/L Normal 133-145 [facility] Comment on above: Performed By: #### L 500.2500 #### [facility] [address] [place], [address] Urea nitrogen [Mass/Vol] 27 mg/dL High 4-19 [facility] Comment on above: Performed By: #### L 500.2500 #### [facility] [address] [place], [address] HH, Hemoglobin AND Hematocri ton 11-19-2024 Hematocrit (Bld) [Volume fraction] 30.9 % Low 37-47 [facility] Comment on above: Performed By: #### L 500.2500 #### [facility] [address] [place], [address] Hemoglobin (Bld) [Mass/Vol] 10.7 g/dL Low 12.0-15.0 [facility] Comment on above: Performed By: #### L 500.2500 #### [facility] [address] [place], [address] Basic Metabolic Profile (BMP )on 11-18-2024 BUN/CRE 33.7 RATIO High 10-20 [facility] Comment on above: Performed By: #### L 500.2500 #### [facility] [address] [place], [address] Calcium [Mass/Vol] 8.9 mg/dL Normal 7.6-11.0 [facility] Comment on above: Performed By: #### L 500.2500 #### [facility] [address] [place], [address] Chloride [Moles/Vol] 104 mmol/L Normal 98-108 [facility] Comment on above: Performed By: #### L 500.2500 #### [facility] [address] [place], [address] CO2 [Moles/Vol] 20.1 mmol/L Low 21.0-32.0 [facility] Comment on above: Performed By: #### L 500.2500 #### [facility] [address] [place], [address] Creatinine [Mass/Vol] 0.94 mg/dL Normal 0.70-1.[address] [facility] Comment on above: Performed By: #### L 500.2500 #### [facility] [address] [place], [address] ECRCL 34.29 ml/min Low 50-250 [facility] Comment on above: Performed By: #### L 500.2500 #### [facility] [address] [place], [address] GAP 10 Normal 5-15 [facility] Comment on above: Performed By: #### L 500.2500 #### [facility] [address] [place], [address] GFR/1.73 sq M.predicted among non-blacks MDRD (S/P/Bld) [Vol rate/Area] 61 mL/min/{1.73_m2} Normal >60 [facility] Comment on above: Result Comment: mL/m in/1.73m2 CKD-EPI Creatinine Equation (2020) Performed By: #### L 500.2500 #### [facility] [address] [place], [address] Glucose [Mass/Vol] 101 mg/dL High 70-99 [facility] Comment on above: Performed By: #### L 500.2500 #### [facility] [address] [place], [address] Potassium [Moles/Vol] 4.3 mmol/L Normal 3.3-5.[address] [facility] Comment on above: Performed By: #### L 500.2500 #### [facility] [address] [place], [address] Sodium [Moles/Vol] 134 mmol/L Normal 133-145 [facility] Comment on above: Performed By: #### L 500.2500 #### [facility] [address] [place], [address] Urea nitrogen [Mass/Vol] 32 mg/dL High 4-19 [facility] Comment on above: Performed By: #### L 500.2500 #### [facility] [address] [place], [address] Basic Metabolic Profile (BMP )on 11-16-2024 BUN/CRE 18.5 RATIO Normal 10-20 [facility] Comment on above: Performed By: #### L 509.6001 #### [facility] [address] [place], [address] Calcium [Mass/Vol] 9.3 mg/dL Normal 7.6-11.0 [facility] Comment on above: Performed By: #### L 509.6001 #### [facility] [address] [place], [address] Chloride [Moles/Vol] 95 mmol/L Low 98-108 [facility] Comment on above: Performed By: #### L 509.6001 #### [facility] [address] [place], [address] CO2 [Moles/Vol] 21.4 mmol/L Normal 21.0-32.0 [facility] Comment on above: Performed By: #### L 509.6001 #### [facility] [address] [place], [address] Creatinine [Mass/Vol] 0.91 mg/dL Normal 0.70-1.[address] [facility] Comment on above: Performed By: #### L 509.6001 #### [facility] [address] [place], [address] ECRCL 35.42 ml/min Low 50-250 [facility] Comment on above: Performed By: #### L 509.6001 #### [facility] [address] [place], [address] GAP 11 Normal 5-15 [facility] Comment on above: Performed By: #### L 509.6001 #### [facility] [address] [place], [address] GFR/1.73 sq M.predicted among non-blacks MDRD (S/P/Bld) [Vol rate/Area] 64 mL/min/{1.73_m2} Normal >60 [facility] Comment on above: Result Comment: mL/m in/1.73m2 CKD-EPI Creatinine Equation (2020) Performed By: #### L 509.6001 #### [facility] [address] [place], [address] Glucose [Mass/Vol] 103 mg/dL High 70-99 [facility] Comment on above: Performed By: #### L 509.6001 #### [facility] [address] [place], [address] Potassium [Moles/Vol] 4.5 mmol/L Normal 3.3-5.[address] [facility] Comment on above: Performed By: #### L 509.6001 #### [facility] [address] [place], [address] Sodium [Moles/Vol] 126 mmol/L Low 133-145 [facility] Comment on above: Performed By: #### L 509.6001 #### [facility] [address] [place], [address] Urea nitrogen [Mass/Vol] 17 mg/dL Normal 4-19 [facility] Comment on above: Performed By: #### L 509.6001 #### [facility] [address] [place], [address] L509.6001on 11-16-2024 CORTISOL 11.40 ug/dL Normal 6.02-18.40 [facility] Comment on above: Performed By: #### L 509.6001 #### [facility] [address] [place], [address] Serum or plasma cortisol silvio surement (mass/volume)Ordered By: Jo-Ann Arias on 11-16-2024 Cortisol [Mass/Vol] 11.40 ug/dL 6.02-18.40 [facility] Basic Metabolic Profile (BMP )on 11-15-2024 BUN/CRE 18.3 RATIO Normal 10-20 [facility] Comment on above: Performed By: #### L 500.2500 #### [facility] [address] [place], [address] Calcium [Mass/Vol] 9.1 mg/dL Normal 7.6-11.0 [facility] Comment on above: Performed By: #### L 500.2500 #### [facility] [address] [place], [address] Chloride [Moles/Vol] 92 mmol/L Low 98-108 [facility] Comment on above: Performed By: #### L 500.2500 #### [facility] [address] [place], [address] CO2 [Moles/Vol] 22.8 mmol/L Normal 21.0-32.0 [facility] Comment on above: Performed By: #### L 500.2500 #### [facility] [address] [place], [address] Creatinine [Mass/Vol] 0.91 mg/dL Normal 0.70-1.[address] [facility] Comment on above: Performed By: #### L 500.2500 #### [facility] [address] [place], [address] ECRCL 35.42 ml/min Low 50-250 [facility] Comment on above: Performed By: #### L 500.2500 #### [facility] [address] [place], [address] GAP 10 Normal 5-15 [facility] Comment on above: Performed By: #### L 500.2500 #### [facility] [address] [place], [address] GFR/1.73 sq M.predicted among non-blacks MDRD (S/P/Bld) [Vol rate/Area] 64 mL/min/{1.73_m2} Normal >60 [facility] Comment on above: Result Comment: mL/m in/1.73m2 CKD-EPI Creatinine Equation (2020) Performed By: #### L 500.2500 #### [facility] [address] [place], [address] Glucose [Mass/Vol] 97 mg/dL Normal 70-99 [facility] Comment on above: Performed By: #### L 500.2500 #### [facility] [address] [place], [address] Potassium [Moles/Vol] 4.7 mmol/L Normal 3.3-5.[address] [facility] Comment on above: Performed By: #### L 500.2500 #### [facility] [address] [place], [address] Sodium [Moles/Vol] 124 mmol/L Low 133-145 [facility] Comment on above: Performed By: #### L 500.2500 #### [facility] [address] [place], [address] Urea nitrogen [Mass/Vol] 17 mg/dL Normal 4-19 [facility] Comment on above: Performed By: #### L 500.2500 #### [facility] [address] [place], [address] Bilirubin, totalOrdered By: Jo-Ann Arias on 11-13-2024 Bilirubin [Mass/Vol] 0.71 mg/dL 0.00-1.30 [facility] CBC-Complete Blood Cnt No Di ffon 11-13-2024 Erythrocyte distribution width (RBC) [Ratio] 13.2 % Normal 11.6-14.6 [facility] Comment on above: Performed By: #### L 500.2500 #### [facility] [address] [place], [address] Hematocrit (Bld) [Volume fraction] 30.8 % Low 37-47 [facility] Comment on above: Performed By: #### L 500.2500 #### [facility] [address] [place], [address] Hemoglobin (Bld) [Mass/Vol] 11.1 g/dL Low 12.0-15.0 [facility] Comment on above: Performed By: #### L 500.2500 #### [facility] [address] [place], [address] MCH (RBC) [Entitic mass] 33.3 pg High 27.0-32.0 [facility] Comment on above: Performed By: #### L 500.2500 #### [facility] [address] [place], [address] MCHC (RBC) [Mass/Vol] 36.0 g/dL Normal 32-[address] [facility] Comment on above: Performed By: #### L 500.2500 #### [facility] [address] [place], [address] MCV (RBC) [Entitic vol] 92.5 fL Normal 81-99 [facility] Comment on above: Performed By: #### L 500.2500 #### [facility] [address] [place], [address] Platelet mean volume (Bld) [Entitic vol] 10.1 fL Normal 6.2-12.0 [facility] Comment on above: Performed By: #### L 500.2500 #### [facility] [address] [place], [address] Platelets (Bld) [#/Vol] 204 10*3/uL Normal 150-450 [facility] Comment on above: Performed By: #### L 500.2500 #### [facility] [address] [place], [address] RBC (Bld) [#/Vol] 3.33 10*6/uL Low 4.2-5.4 [facility] Comment on above: Performed By: #### L 500.2500 #### [facility] [address] [place], [address] RDW SD 44.3 fl High 35.1-43.9 [facility] Comment on above: Performed By: #### L 500.2500 #### [facility] [address] [place], [address] WBC (Bld) [#/Vol] 7.0 10*3/uL Normal 4.4-11.0 [facility] Comment on above: Performed By: #### L 500.2500 #### [facility] [address] [place], [address] Comprehensive Metabolic Prof ilon 11-13-2024 Albumin [Mass/Vol] 3.9 g/dL Normal 3.4-4.8 [facility] Comment on above: Performed By: #### L 500.2500 #### [facility] [address] [place], [address] Albumin/Globulin [Mass ratio] 1.8 {ratio} Normal 0.9-2.4 [facility] Comment on above: Performed By: #### L 500.2500 #### [facility] [address] [place], [address] ALK PHOS 81 U/L Normal 35-104 [facility] Comment on above: Performed By: #### L 500.2500 #### [facility] [address] [place], [address] ALT [Catalytic activity/Vol] 82 U/L High <=34 [facility] Comment on above: Performed By: #### L 500.2500 #### [facility] [address] [place], [address] AST [Catalytic activity/Vol] 57 U/L High <=31 [facility] Comment on above: Performed By: #### L 500.2500 #### [facility] [address] [place], [address] Bilirubin [Mass/Vol] 0.71 mg/dL Normal 0.00-1.30 [facility] Comment on above: Performed By: #### L 500.2500 #### [facility] [address] [place], [address] BUN/CRE 22.2 RATIO High 10-20 [facility] Comment on above: Performed By: #### L 500.2500 #### [facility] [address] [place], [address] Calcium [Mass/Vol] 9.4 mg/dL Normal 7.6-11.0 [facility] Comment on above: Performed By: #### L 500.2500 #### [facility] [address] [place], [address] Chloride [Moles/Vol] 95 mmol/L Low 98-108 [facility] Comment on above: Performed By: #### L 500.2500 #### [facility] [address] [place], [address] CO2 [Moles/Vol] 22.0 mmol/L Normal 21.0-32.0 [facility] Comment on above: Performed By: #### L 500.2500 #### [facility] [address] [place], [address] Creatinine [Mass/Vol] 0.89 mg/dL Normal 0.70-1.[address] [facility] Comment on above: Performed By: #### L 500.2500 #### [facility] [address] [place], [address] ECRCL 36.21 ml/min Low 50-250 [facility] Comment on above: Performed By: #### L 500.2500 #### [facility] [address] [place], [address] GAP 10 Normal 5-15 [facility] Comment on above: Performed By: #### L 500.2500 #### [facility] [address] [place], [address] GFR/1.73 sq M.predicted among non-blacks MDRD (S/P/Bld) [Vol rate/Area] 66 mL/min/{1.73_m2} Normal >60 [facility] Comment on above: Result Comment: mL/m in/1.73m2 CKD-EPI Creatinine Equation (2020) Performed By: #### L 500.2500 #### [facility] [address] [place], [address] Globulin (S) [Mass/Vol] 2.2 g/dL Normal 2.2-4.2 [facility] Comment on above: Performed By: #### L 500.2500 #### [facility] [address] [place], [address] Glucose [Mass/Vol] 95 mg/dL Normal 70-99 [facility] Comment on above: Performed By: #### L 500.2500 #### [facility] [address] [place], [address] Potassium [Moles/Vol] 4.7 mmol/L Normal 3.3-5.[address] [facility] Comment on above: Performed By: #### L 500.2500 #### [facility] [address] [place], [address] Sodium [Moles/Vol] 127 mmol/L Low 133-145 [facility] Comment on above: Performed By: #### L 500.2500 #### [facility] [address] [place], [address] T PROT 6.1 g/dL Normal 5.9-8.4 [facility] Comment on above: Performed By: #### L 500.2500 #### [facility] [address] [place], [address] Urea nitrogen [Mass/Vol] 20 mg/dL High 4-19 [facility] Comment on above: Performed By: #### L 500.2500 #### [facility] [address] [place], [place], [id number] Laboratory - Chemistry and C hemistry - challengeOrdered By: Jo-Ann Hsiehjenny on 11-13-2024 AST [Catalytic activity/Vol] 57 U/L High <32 [facility] Magnesiumon 11-13-2024 Magnesium [Mass/Vol] 2.0 mg/dL Normal 1.5-2.2 [facility] Comment on above: Performed By: #### L 500.2500 #### [facility] [address] [place], [place], [address] Magnesium measurement (mass/ volume)Ordered By: Jo-Ann Hugo on 11-13-2024 Magnesium (Unsp spec) [Mass/Vol] 2.0 mg/dL 1.5-2.2 [facility] Osmolality, Serumon 11-14-19 25 OSMOLALITY,SER 271 mOsm/KG Low 280-301 [facility] Comment on above: Performed By: #### L 500.2500 #### [facility] [address] [place], [place], [address] Osmolality, Urineon 11-14-19 25 OSMOLALITY,UR 591 mOsm/KG Normal [facility] Comment on above: Result Comment: Normal Urine Reference Ranges Random: 50 - 1200 mOsm/kg H20 depending on fluid intake Random: >850 mOsm/kg after 12 hour fluid restriction 24 hour: 300 - 900 mOsm/kg H2O Performed By: #### L 500.2500 #### [facility] [address] [place], [place], [address] Phosphoruson 11-13-2024 Phosphate [Mass/Vol] 3.9 mg/dL Normal 2.7-4.5 [facility] Comment on above: Performed By: #### L 500.2500 #### [facility] [address] [place], [place], [address] Serum globulin measurementOr dered By: Jo-Ann Arias on 11-13-2024 Globulin (S) [Mass/Vol] 2.2 g/dL 2.2-4.2 [facility] Serum or plasma alanine oliver otransferase (ALT) measurementOrdered By: Jo-Ann Hsiehjenny on 11-13-2024 ALT [Catalytic activity/Vol] 82 U/L High <35 [facility] Serum or plasma albumin/glob ulin mass ratioOrdered By: Jo-Ann Hsiehjenny on 11-13-2024 Albumin/Globulin [Mass ratio] 1.8 {ratio} 0.9-2.4 [facility] Serum or plasma alkaline brenna sphatase measurementOrdered By: Jo-Ann Hsiehjenny on 11-13-2024 ALP [Catalytic activity/Vol] 81 U/L 35-104 [facility] TSH DL <= 0.005 mIU/L QnOrde red By: Jo-Ann Hsiehjenny on 11-13-2024 TSH Qn 1.990 uIU/mL 0.300-4.200 [facility] Thyroid Stim Hormone (TSH)on 11-13-2024 TSH 1.990 uIU/mL Normal 0.300-4.200 [facility] Comment on above: Performed By: #### L 509.6001 #### [facility] [address] [place], [address] Total proteinOrdered By: Alyssa Arias on 11-13-2024 Protein [Mass/Vol] 6.1 g/dL 5.9-8.4 [facility] Urine Sodiumon 11-13-2024 Sodium (U) [Moles/Vol] 89 mmol/L Normal Not Establ. [facility] Comment on above: Performed By: #### L 500.2500 #### [facility] [address] [facility] [place], [address] CBC,PLATELETSon 11-12-2024 Hematocrit (Bld) [Volume fraction] 30.0 % Low 34.9-44.3 [facility] Comment on above: Performed By: #### [facility] #### [facility] (DEFAULT) [address] [place] [address] Hemoglobin (Bld) [Mass/Vol] 10.6 g/dL Low 11.4-15.2 [facility] Comment on above: Performed By: #### H EMOGC #### U [facility] (DEFAULT) [address] [address] MCV (RBC) [Entitic vol] 92.9 fL Normal 79.6-97.7 [facility] Comment on above: Performed By: #### H EMOGC #### [facility] (DEFAULT) [address] [address] Mean Cell Hgb 32.8 pg Normal 25.9-33.9 [facility] Comment on above: Performed By: #### H EMOGC #### [facility] (DEFAULT) [address] [address] Mean Cell Hgb Conc 35.3 g/dL Normal 31.4-35.9 [facility] Comment on above: Performed By: #### H EMOGC #### [facility] (DEFAULT) [address] [address] Platelet mean volume (Bld) [Entitic vol] 10.2 fL Normal 8.5-12.2 [facility] Comment on above: Performed By: #### H EMOGC #### [facility] (DEFAULT) [address] [address] Platelets (Bld) [#/Vol] 195 10*3/uL Normal 150-393 [facility] Comment on above: Performed By: #### H EMOGC #### [facility] (DEFAULT) [address] [address] RBC (Bld) [#/Vol] 3.23 10*6/uL Low 3.91-5.04 [facility] Comment on above: Performed By: #### H EMOGC #### [facility] (DEFAULT) [address] [address] RBC Distribution 13.2 % Normal 10.8-14.9 [facility] Comment on above: Performed By: #### H EMOGC #### [facility] (DEFAULT) [address] [place] [address] WBC (Bld) [#/Vol] 6.18 10*3/uL Normal 3.99-11.19 [facility] Comment on above: Performed By: #### [facility] #### [facility] (DEFAULT) [address] [place] [address] CHEM 7 (LYTES,BUN,CREA,GLUC) on 11-12-2024 Anion gap [Moles/Vol] 12 mmol/L Normal 7-17 [place] Comment on above: Performed By: #### C HM7 #### U [facility] (DEFAULT) [address] [place] [address] Chloride [Moles/Vol] 99 mmol/L Normal 98-108 [facility] Comment on above: Performed By: #### C HM7 #### U [facility] (DEFAULT) [address] [place] [address] CO2 [Moles/Vol] 25 mmol/L Normal 21-31 [facility] Comment on above: Performed By: #### C HM7 #### [facility] (DEFAULT) [address] [place] [address] Creatinine [Mass/Vol] 0.89 mg/dL Normal 0.50-1.20 [place] Comment on above: Performed By: #### C HM7 #### [facility] (DEFAULT) [address] [place] [address] GFR/1.73 sq M.predicted among non-blacks MDRD (S/P/Bld) [Vol rate/Area] 65 mL/min/{1.73_m2} Normal >=60 [facility] Comment on above: Result Comment: Repo rted eGFR is based on the CKD-EPI 2020 equation using creatinine, age, and sex. Performed By: #### C HM7 #### [facility] (DEFAULT) [address] [place] [address] Glucose [Mass/Vol] 99 mg/dL Normal Nonfastin -179 mg/dL; Fastin-99 [facility] Comment on above: Performed By: #### C HM7 #### [facility] (DEFAULT) [address] [place] [address] Osmolality [Osmolality] 278 mosm/kg Normal 278-305 [facility] Comment on above: Performed By: #### C HM7 #### U [facility] (DEFAULT) [address] [place] [address] Potassium [Moles/Vol] 4.5 mmol/L Normal 3.5-5.0 [place] Comment on above: Performed By: #### C HM7 #### [facility] (DEFAULT) [address] [place] [address] Sodium [Moles/Vol] 131 mmol/L Low 135-145 [facility] Comment on above: Performed By: #### C HM7 #### [facility] (DEFAULT) [address] [place] [address] Urea nitrogen [Mass/Vol] 16 mg/dL Normal 7-25 [facility] Comment on above: Performed By: #### C HM7 #### [facility] (DEFAULT) [address] [place] [address] Urea nitrogen/Creatinine [Mass ratio] 18 mg/mg Normal [facility] Comment on above: Performed By: #### C HM7 #### [facility] (DEFAULT) [address] [place] [address] Cardiac echo study Procedure Ordered By: Shirlene Marrero on 11-12-2024 Ao ASC index 2.1 cm/m2 [facility] Work Phone: [phone] Ao peak vika 2.71 m/s [facility] Work Phone: [phone] Ao SOV index 1.88 cm/m2 [facility] Work Phone: [phone] Ao VTI 63.7 cm [facility] Work Phone: AR Max Vika 4.09 m/s [facility] Work Phone: [phone] Ascending aorta 2.9 cm [facility] Work Phone: [phone] AV LVOT peak gradient 9 mmHg [facility] Work Phone: [phone] AV mean gradient 15 mmHg [facility] Work Phone: [phone] AV peak gradient 29 mmHG [facility] Work Phone: [phone] AV regurgitation pressure 1/2 time 468 ms [facility] Work Phone: [phone] AV valve area 1.38 cm2 [facility] Work Phone: [phone] AV Velocity Ratio 0.54 [facility] Work Phone: [phone] JULIUS (continuity Vmax) 1.37 cm2 [facility] Work Phone: [phone] JULIUS (continuity VTI) 1.38 cm2 [facility] Work Phone: [phone] JULIUS index (continuity Vmax) 0.99 m/s [facility] Work Phone: [phone] JULIUS index (continuity VTI) 1 cm2/m2 [facility] Work Phone: [phone] Avg e' pk vika 0.06 m/s [facility] Work Phone: [phone] Avg E/e' ratio 15.98 [facility] Work Phone: [phone] Body surface area Derived from formula 1.38 m2 [facility] Work Phone: [phone] DI (Vmax) 0.54 [facility] Work Phone: [phone] DI (VTI) 0.54 m/2 [facility] Work Phone: [phone] E wave decelartion time 209 msec [facility] Work Phone: [phone] e' lateral pk vika 0.0729 m/s [facility] Work Phone: [phone] e' lateral pk vika 0.07 m/s [facility] Work Phone: [phone] e' septal pk vika 0.0511 m/s [facility] Work Phone: [phone] e' septal pk vika 0.05 m/s [facility] Work Phone: [phone] E/A ratio 0.73 [facility] Work Phone: [phone] E/e' lateral ratio 13.17 [facility] Work Phone: [phone] E/e' septal ratio 18.79 [facility] Work Phone: [phone] Echo EF Estimated 55 % [facility] Work Phone: [phone] EST RAP 3 [facility] Phone: [phone] EST RVSP 25 mmHg [facility] Work Phone: [phone] FS 47 % [facility] Work Phone: [phone] IVC ostium 1.5 cm [facility] Work Phone: [phone] IVS 0.9 cm [facility] Work Phone: [phone] LA ESV BP (MOD) 60 mL [facility] Work Phone: [phone] LA ESV BP (MOD) index 43 mL/m2 [facility] Work Phone: [phone] LA ESV SP 2CH (MOD) 46 mL [facility] Work Phone: [phone] LA ESV SP 4CH (MOD) 64 mL [facility] Work Phone: [phone] LV mass 141.91 g [facility] Work Phone: [phone] LV Mass Index 102.8 g/m2 [facility] Work Phone: [phone] LV RWT 0.33 [facility] Work Phone: [phone] LVIDD 4.9 cm [facility] Work Phone: [phone] LVIDS 2.6 cm [facility] Work Phone: [phone] LVOT area 2.54 cm2 [facility] Work Phone: [phone] LVOT diameter 1.8 cm [facility] Work Phone: [phone] LVOT peak vika 1.46 m/s [facility] Work Phone: [phone] LVOT peak VTI 34.5 [facility] Work Phone: [phone] LVOT stroke volume 88 cm3 [facility] Work Phone: [phone] LVOT stroke volume index 63.59 ml/m2 [facility] Work Phone: [phone] MV pk A vika 1.32 m/s [facility] Work Phone: [phone] MV pk E vika 0.96 m/s [facility] Work Phone: [phone] MV stenosis pressure 1/2 time 61 ms [facility] Work Phone: [phone] MV valve area p 1/2 method 3.61 cm2 [facility] Work Phone: [phone] [facility] AV VTI RATIO PRE STRESS 0.54 [facility] Work Phone: [phone] [facility] RVOT VTI RATIO 0.79 [facility] Work Phone: [phone] [facility]: [phone] PV peak gradient 6 [facility] Work Phone: [phone] PV PK VIKA 1.22 m/s [facility] Work Phone: [phone] PV VTI 29.8 [facility] Work Phone: [phone] PW 0.8 cm [facility] Work Phone: [phone] RA vol index 4CH (MOD) 12.32 mL/m2 O [facility] Work Phone: Right atrium volume 4 [facility]: [phone] RV basal diam 3.7 cm [facility] Work Phone: [phone] RV S' 13.1 cm/s [facility] Work Phone: RVOT peak gradient 4 mmHg [facility] Work Phone: RVOT peak vika 0.97 m/s [facility] Work Phone: RVOT peak VTI 23.5 cm [facility] Work Phone: Sinus 2.6 cm [facility] Work Phone: Stroke Volume 88 cm/mL [facility] Work Phone: [facility]: TAPSE 2.23 cm [facility] Work Phone: TR pk grad 22 mmHg [facility] Work Phone: TR pk vika 2.33 m/s [facility] Work Phone: [facility] Work Phone: Cardiac echo study Procedure [...] and technically difficult study. Imaging system used: BrandShield. Indications Indications for study: murmur. Wall Scoring Score Index: 1.00 The left ventricular wall motion is normal. [facility] Radiology Study observation (narrative) [facility] [...] from the original result were not included. [facility] Facility [facility] Patient Information Patient Name Sarah Mcguire Legal Sex Female Indication for Exam [...] Role Read Date Shirlene Marrero MD Echo [place], Test Harness Tier 11/12/2024 Wall Scoring Score Index: 1.00 The [...] PISA A (more content not included)... Normal [facility] Laboratory - Chemistry and C hemistry - challengeon 11-12-2024 Anion gap [Moles/Vol] 12 mmol/L 7 - 17 mmol[facility] Chloride [Moles/Vol] 99 mmol/L 98 - 10 8 mmol/L [facility] CO2 [Moles/Vol] 25 mmol/L 21 - 31 mmol/L [facility] Creatinine [Mass/Vol] 0.89 mg/dL 0.50 - 1.20 mg/dL [facility] Glucose [Mass/Vol] 99 mg/dL 70 - 179 mg/dL [facility] Osmolality Calc [Osmolality] 278 [facility] Potassium [Moles/Vol] 4.5 mmol/L 3.5 - 5.0 mmol/L [facility] Sodium [Moles/Vol] 131 mmol/L Low 135 - 145 mmol/L [facility] Urea nitrogen [Mass/Vol] 16 mg/dL 7 - 25 mg/dL [facility] Urea nitrogen/Creatinine [Mass ratio] 18 mg/mg [facility] Laboratory - Hematology and Cell countson 11-12-2024 Erythrocyte distribution width (RBC) [Ratio] 13.2 % 10.8 - 14.9 % [facility] Hematocrit (Bld) [Volume fraction] 30 % Low 34.9 - 44.3 % [facility] Hemoglobin (Bld) [Mass/Vol] 10.6 g/dL Low 11.4 - 15.2 g/dL [facility] MCH (RBC) [Entitic mass] 32.8 pg 25.9 - 33.9 pg [facility] MCHC (RBC) [Mass/Vol] 35.3 g/dL 31.4 - 35.9 g/dL [facility] MCV (RBC) [Entitic vol] 92.9 fL 79.6 - 97.7 fL [facility] Platelet mean volume (Bld) [Entitic vol] 10.2 fL 8.5 - 12.2 fL [facility] Platelets (Bld) [#/Vol] 195 10*3/uL 150 - 393 K/uL [facility] RBC (Bld) [#/Vol] 3.23 10*6/uL Low [facility] WBC (Bld) [#/Vol] 6.18 10*3/uL 3.99 - 11. 19 K/uL [facility] No Panel Informationon 11-12 eGFR, CKD-EPI, Female 63 - PINF [facility] Comment on above: Reported eGFR is bas ed on the CKD-EPI 2020 equation using creatinine, age, and sex. Interpretation and review of laboratory results Abnormal [facility] Interpretation and review of laboratory results Abnormal [facility] CBC,PLATELETSon 11-11-2024 Hematocrit (Bld) [Volume fraction] 29.3 % Low 34.9-44.3 [facility] Comment on above: Performed By: #### M GA ALBERTO, TIANA, HFP #### [facility] (DEFAULT) [address] [place] [address] Hemoglobin (Bld) [Mass/Vol] 10.2 g/dL Low 11.4-15.2 [facility] Comment on above: Performed By: #### M GA ALBERTO, KARL7, HFP #### [facility] (DEFAULT) [address] [place] [address] MCV (RBC) [Entitic vol] 93.3 fL Normal 79.6-97.7 O [facility] Comment on above: Performed By: #### M GO, IPB, CHM7, HFP #### [facility] (DEFAULT) [address] [place] [address] Mean Cell Hgb 32.5 pg Normal 25.9-33.9 [facility] Comment on above: Performed By: #### M GO, IPB, CHM7, HFP #### [facility] (DEFAULT) [address] [place] [address] Mean Cell Hgb Conc 34.8 g/dL Normal 31.4-35.9 [facility] Comment on above: Performed By: #### M GO, IPB, CHM7, HFP #### [facility] (DEFAULT) [address] [address] Platelet mean volume (Bld) [Entitic vol] 10.3 fL Normal 8.5-12.2 [facility] Comment on above: Performed By: #### M GO, IPB, CHM7, HFP #### [facility] (DEFAULT) [address] [place] [address] Platelets (Bld) [#/Vol] 193 10*3/uL Normal 150-393 [facility] Comment on above: Performed By: #### M GO, IPB, CHM7, HFP #### [facility] (DEFAULT) [address] [place] [address] RBC (Bld) [#/Vol] 3.14 10*6/uL Low 3.91-5.04 [facility] Comment on above: Performed By: #### M GO, IPB, CHM7, HFP #### [facility] (DEFAULT) [address] [address] RBC Distribution 13.2 % Normal 10.8-14.9 [facility] Comment on above: Performed By: #### M GO, IPB, CHM7, HFP #### [facility] (DEFAULT) [address] [place] [address] WBC (Bld) [#/Vol] 5.77 10*3/uL Normal 3.99-11.19 [facility] Comment on above: Performed By: #### M GA ALBERTO, CHM7, HFP #### [facility] (DEFAULT) [address] [place] [address] CHEM 7 (LYTES,BUN,CREA,GLUC) on 11-11-2024 Anion gap [Moles/Vol] 12 mmol/L Normal 7-17 [place] Comment on above: Performed By: #### GA FUNES, CHM7, HFP #### [facility] (DEFAULT) [address] [place] [address] Chloride [Moles/Vol] 98 mmol/L Normal 98-108 [facility] Comment on above: Performed By: #### GA FUNES, CHM7, HFP #### [facility] (DEFAULT) [address] [place] [address] CO2 [Moles/Vol] 24 mmol/L Normal 21-31 [facility] Comment on above: Performed By: #### GA FUNES, CHM7, HFP #### [facility] (DEFAULT) [address] [place] [address] Creatinine [Mass/Vol] 0.93 mg/dL Normal 0.50-1.20 [place] Comment on above: Performed By: #### IDALIA FUNESB, CHM7, HFP #### [facility] (DEFAULT) [address] [place] [address] GFR/1.73 sq M.predicted among non-blacks MDRD (S/P/Bld) [Vol rate/Area] 62 mL/min/{1.73_m2} Normal >=60 [facility] Comment on above: Result Comment: Repo rted eGFR is based on the CKD-EPI 2020 equation using creatinine, age, and sex. Performed By: #### M GO, IPB, CHM7, HFP #### [facility] (DEFAULT) [address] [place] [address] Glucose [Mass/Vol] 95 mg/dL Normal Nonfastin -179 mg/dL; Fastin-99 [facility] Comment on above: Performed By: #### Harini ALBERTO IPB, CHM7, HFP #### [facility] (DEFAULT) [address] [place] [address] Osmolality [Osmolality] 275 mosm/kg Low 278-305 [facility] Comment on above: Performed By: #### Harini ALBERTO IPB, CHM7, HFP #### [facility] (DEFAULT) [address] [place] [address] Potassium [Moles/Vol] 4.3 mmol/L Normal 3.5-5.0 [place] Comment on above: Performed By: #### IDALIA FUNESB, CHM7, HFP #### [facility] (DEFAULT) [address] [place] [address]187 Sodium [Moles/Vol] 130 mmol/L Low 135-145 [facility] Comment on above: Performed By: #### IDALIA FUNESB, CHM7, HFP #### [facility] (DEFAULT) [address] [place] [address]13 Urea nitrogen [Mass/Vol] 15 mg/dL Normal 7-25 [facility] Comment on above: Performed By: #### IDALIA FUNESB, CHM7, HFP #### [facility] (DEFAULT) [address] [place] [address] Urea nitrogen/Creatinine [Mass ratio] 16 mg/mg Normal [facility] Comment on above: Performed By: #### IDALIA FUNESB, CHM7, HFP #### [facility] (DEFAULT) [address] [place] [address] Laboratory - Chemistry and C hemistry - challengeon 11-11-2024 Anion gap [Moles/Vol] 12 mmol/L 7 - 17 mmol/L [facility] Chloride [Moles/Vol] 98 mmol/L 98 - 10 8 mmol/L [facility] CO2 [Moles/Vol] 24 mmol/L 21 - 31 mmol/L [facility] Creatinine [Mass/Vol] 0.93 mg/dL 0.50 - 1.20 mg/dL [facility] Glucose [Mass/Vol] 95 mg/dL 70 - 179 mg/dL [facility] Osmolality Calc [Osmolality] 275 Low [facility] Potassium [Moles/Vol] 4.3 mmol/L 3.5 - 5.0 mmol/L [facility] Sodium [Moles/Vol] 130 mmol/L Low 135 - 145 mmol/L [facility] Urea nitrogen [Mass/Vol] 15 mg/dL 7 - 25 mg/dL [facility] Urea nitrogen/Creatinine [Mass ratio] 16 mg/mg [facility] Laboratory - Hematology and Cell countson 11-11-2024 Erythrocyte distribution width (RBC) [Ratio] 13.2 % 10.8 - 14.9 % [facility] Hematocrit (Bld) [Volume fraction] 29.3 % Low 34.9 - 44.3 % [facility] Hemoglobin (Bld) [Mass/Vol] 10.2 g/dL Low 11.4 - 15.2 g/dL [facility] MCH (RBC) [Entitic mass] 32.5 pg 25.9 - 33.9 pg [facility] MCHC (RBC) [Mass/Vol] 34.8 g/dL 31.4 - 35.9 g/dL [facility] MCV (RBC) [Entitic vol] 93.3 fL 79.6 - 97.7 fL [facility] Platelet mean volume (Bld) [Entitic vol] 10.3 fL 8.5 - 12.2 fL [facility] Platelets (Bld) [#/Vol] 193 10*3/uL 150 - 393 K/uL [facility] RBC (Bld) [#/Vol] 3.14 10*6/uL Low [facility] WBC (Bld) [#/Vol] 5.77 10*3/uL 3.99 - 11. 19 K/uL [facility] No Panel Informationon 11-11 eGFR, CKD-EPI, Female 60 - PINF [facility] Comment on above: Reported eGFR is bas ed on the CKD-EPI 2020 equation using creatinine, age, and sex. Interpretation and review of laboratory results Abnormal [facility] Interpretation and review of laboratory results Abnormal [facility] CBC,PLATELETSon 11-10-2024 Hematocrit (Bld) [Volume fraction] 31.4 % Low 34.9-44.3 [facility] Comment on above: Performed By: #### GA FUNES, CHM7, HFP #### [facility] (DEFAULT) [address] [address] Hemoglobin (Bld) [Mass/Vol] 11.1 g/dL Low 11.4-15.2 [facility] Comment on above: Performed By: #### GA FUNES, CHM7, HFP #### [facility] (DEFAULT) [address] [address] MCV (RBC) [Entitic vol] 93.5 fL Normal 79.6-97.7 O [facility] Comment on above: Performed By: #### IDALIA FUNESB, CHM7, HFP #### [facility] (DEFAULT) [address] [place] [address] Mean Cell Hgb 33.0 pg Normal 25.9-33.9 [facility] Comment on above: Performed By: #### IDALIA FUNESB, CHM7, HFP #### [facility] (DEFAULT) [address] [address] Mean Cell Hgb Conc 35.4 g/dL Normal 31.4-35.9 [facility] Comment on above: Performed By: #### IDALIA FUNESB, CHM7, HFP #### [facility] (DEFAULT) [address] [place] [address] Platelet mean volume (Bld) [Entitic vol] 10.4 fL Normal 8.5-12.2 [facility] Comment on above: Performed By: #### M GO, IPB, CHM7, HFP #### [facility] (DEFAULT) [address] [place] [address] Platelets (Bld) [#/Vol] 205 10*3/uL Normal 150-393 [facility] Comment on above: Performed By: #### M GO, IPB, CHM7, HFP #### [facility] (DEFAULT) [address] [place] [address] RBC (Bld) [#/Vol] 3.36 10*6/uL Low 3.91-5.04 [facility] Comment on above: Performed By: #### M GO, IPB, CHM7, HFP #### [facility] (DEFAULT) [address] [place] [address] RBC Distribution 13.3 % Normal 10.8-14.9 [facility] Comment on above: Performed By: #### M GO, IPB, CHM7, HFP #### [facility] (DEFAULT) [address] [place] [address] WBC (Bld) [#/Vol] 9.67 10*3/uL Normal 3.99-11.19 [facility] Comment on above: Performed By: #### M GO, IPB, CHM7, HFP #### [facility] (DEFAULT) [address] [place] [address] CHEM 7 (LYTES,BUN,CREA,GLUC) on 11-10-2024 Anion gap [Moles/Vol] 13 mmol/L Normal 7-17 [place] Comment on above: Performed By: #### M GO, IPB, CHM7, HFP #### [facility] (DEFAULT) [address] [place] [address] Chloride [Moles/Vol] 99 mmol/L Normal 98-108 [facility] Comment on above: Performed By: #### M GA ALBERTO, CHM7, HFP #### [facility] (DEFAULT) [address] [place] [address]47 CO2 [Moles/Vol] 25 mmol/L Normal 21-31 [facility] Comment on above: Performed By: #### M GA ALBERTO, CHM7, HFP #### [facility] (DEFAULT) [address] [place] [address] Creatinine [Mass/Vol] 0.78 mg/dL Normal 0.50-1.20 [place] Comment on above: Performed By: #### GA FUNES, CHM7, HFP #### [facility] (DEFAULT) [address] [place] [address] GFR/1.73 sq M.predicted among non-blacks MDRD (S/P/Bld) [Vol rate/Area] 77 mL/min/{1.73_m2} Normal >=60 [facility] Comment on above: Result Comment: Repo rted eGFR is based on the CKD-EPI 2020 equation using creatinine, age, and sex. Performed By: #### GA FUNES, CHM7, HFP #### [facility] (DEFAULT) [address] [place] [address] Glucose [Mass/Vol] 96 mg/dL Normal Nonfastin -179 mg/dL; Fastin-99 [facility] Comment on above: Performed By: #### M GA ALBERTO, CHM7, HFP #### [facility] (DEFAULT) [address] [place] [address] Osmolality [Osmolality] 280 mosm/kg Normal 278-305 [facility] Comment on above: Performed By: #### M GA ALBERTO, CHM7, HFP #### [facility] (DEFAULT) [address] [place] [address] Potassium [Moles/Vol] 4.7 mmol/L Normal 3.5-5.0 [place] Comment on above: Performed By: #### M GA ALBERTO, CHM7, HFP #### [facility] (DEFAULT) [address] [place] [address] Sodium [Moles/Vol] 132 mmol/L Low 135-145 [facility] Comment on above: Performed By: #### GA FUNES, CARLM7, HFP #### [facility] (DEFAULT) [address] [place] [address] Urea nitrogen [Mass/Vol] 16 mg/dL Normal 7-25 [facility] Comment on above: Performed By: #### GA FUNES, CHM7, HFP #### [facility] (DEFAULT) [address] [place] [address]2667 Urea nitrogen/Creatinine [Mass ratio] 21 mg/mg Normal [facility] Comment on above: Performed By: #### GA FUNES, CHM7, HFP #### [facility] (DEFAULT) [address] [place] [address]173 Laboratory - Chemistry and C hemistry - challengeon 11-10-2024 Anion gap [Moles/Vol] 13 mmol/L 7 - 17 mmol/L [facility] Chloride [Moles/Vol] 99 mmol/L 98 - 10 8 mmol/L [facility] CO2 [Moles/Vol] 25 mmol/L 21 - 31 mmol/L [facility] Creatinine [Mass/Vol] 0.78 mg/dL 0.50 - 1.20 mg/dL [facility] Glucose [Mass/Vol] 96 mg/dL 70 - 179 mg/dL [facility] Osmolality Calc [Osmolality] 280 [facility] Potassium [Moles/Vol] 4.7 mmol/L 3.5 - 5.0 mmol/L [facility] Sodium [Moles/Vol] 132 mmol/L Low 135 - 145 mmol/L [facility] Urea nitrogen [Mass/Vol] 16 mg/dL 7 - 25 mg/dL [facility] Urea nitrogen/Creatinine [Mass ratio] 21 mg/mg [facility] Laboratory - Hematology and Cell countson 11-10-2024 Erythrocyte distribution width (RBC) [Ratio] 13.3 % 10.8 - 14.9 % [facility] Hematocrit (Bld) [Volume fraction] 31.4 % Low 34.9 - 44.3 % [facility] Hemoglobin (Bld) [Mass/Vol] 11.1 g/dL Low 11.4 - 15.2 g/dL [facility] MCH (RBC) [Entitic mass] 33 pg 25.9 - 33.9 pg [facility] MCHC (RBC) [Mass/Vol] 35.4 g/dL 31.4 - 35.9 g/dL [facility] MCV (RBC) [Entitic vol] 93.5 fL 79.6 - 97.7 fL [facility] Platelet mean volume (Bld) [Entitic vol] 10.4 fL 8.5 - 12.2 fL [facility] Platelets (Bld) [#/Vol] 205 10*3/uL 150 - 393 K/uL [facility] RBC (Bld) [#/Vol] 3.36 10*6/uL Low [facility] WBC (Bld) [#/Vol] 9.67 10*3/uL 3.99 - 11. 19 K/uL [facility] MR Brain WO and W contrast [...] suggest recurrence. Stable remote right cerebellar infarct. [facility] Radiology Study observation (narrative) [facility] MRA Head vessels WO contrast on 11-10-2024 [...] of the brain is performed using 3D okxo-ns-ytqnsj technique without intravenous contrast. Source images, as [...] of the brain is performed using 3D mrhz-po-eszzhv technique without intravenous contrast. Source images, as [...] segment of the bilateral posterior cerebral arteries. [facility] Radiology Study observation (narrative) [facility] MRA Head vessels WO contrast Ordered By: Morgan Fierro on 11-10-2024 [facility] Work Phone: MRA Neck vessels WO [...] carotid or vertebral system in the neck. [facility] Radiology Study observation (narrative) [facility] MRI ANGIO NECK WITH AND WITH OUT [...] or vertebral system in the neck. Normal [facility] MRI ARTERIOGRAM BRAIN WITHOU T CONTRASTon 11-10-2024 MRI ARTERIOGRAM BRAIN WITHOUT CONTRAST EXAM: MRI ARTERIOGRAM BRAIN WITHOUT CONTRAST, 11/10/2024 11:55 AM COMPARISON: MRI BRAIN WITH AND WITHOUT CONTRAST November 10, 2024 CLINICAL INDICATIONS: 78 years Female Seizure work up TECHNIQUE: MR Angiography of the brain is performed using 3D rkql-ty-luvser technique without intravenous contrast. Source images, as [...] of the bilateral posterior cerebral arteries. Normal [facility] MRI BRAIN WITH AND WITHOUT C [facility] 11-10-2024 MRI BRAIN WITH AND [...] recurrence. Stable remote right cerebellar infarct. Normal [facility] No Panel Informationon 11-10 [facility] eGFR, CKD-EPI, Female 75 - PINF [facility] Comment on above: Reported eGFR is bas ed on the CKD-EPI 2020 equation using creatinine, age, and sex. Interpretation and review of laboratory results Abnormal [facility] Interpretation and review of laboratory results Abnormal [facility] CBC,PLATELETSon 11-09-2024 Hematocrit (Bld) [Volume fraction] 28.5 % Low 34.9-44.3 [facility] Comment on above: Performed By: #### M GA ALBERTO, CARLM7, HFP #### [facility] (DEFAULT) [address] [place] [address] Hemoglobin (Bld) [Mass/Vol] 10.4 g/dL Low 11.4-15.2 [facility] Comment on above: Performed By: #### M GA ALBERTO, CHM7, HFP #### [facility] (DEFAULT) [address] [place] [address] MCV (RBC) [Entitic vol] 91.9 fL Normal 79.6-97.7 [facility] Comment on above: Performed By: #### M GO, IPB, CHM7, HFP #### [facility] (DEFAULT) [address] [place] [address] 09181 Mean Cell Hgb 33.5 pg Normal 25.9-33.9 [facility] Comment on above: Performed By: #### M GO, IPB, CHM7, HFP #### [facility] (DEFAULT) [address] [place] [address]338 Mean Cell Hgb Conc 36.5 g/dL High 31.4-35.9 [facility] Comment on above: Performed By: #### M GO, IPB, CHM7, HFP #### [facility] (DEFAULT) [address] [place] [address]83 Platelet mean volume (Bld) [Entitic vol] 10.4 fL Normal 8.5-12.2 [facility] Comment on above: Performed By: #### M GO, IPB, CHM7, HFP #### [facility] (DEFAULT) [address] [place] [address] 61444 Platelets (Bld) [#/Vol] 182 10*3/uL Normal 150-393 [facility] Comment on above: Performed By: #### M GO, IPB, CHM7, HFP #### [facility] (DEFAULT) [address] [address] RBC (Bld) [#/Vol] 3.10 10*6/uL Low 3.91-5.04 [facility] Comment on above: Performed By: #### M GO, IPB, CHM7, HFP #### [facility] (DEFAULT) [address] [place] [address] 22350 RBC Distribution 13.2 % Normal 10.8-14.9 [facility] Comment on above: Performed By: #### M GO, IPB, CHM7, HFP #### [facility] (DEFAULT) [address] [place] [address]255 WBC (Bld) [#/Vol] 6.17 10*3/uL Normal 3.99-11.19 [facility] Comment on above: Performed By: #### M IDALIA ALBERTOB, CHM7, HFP #### [facility] (DEFAULT) [address] [place] [address] CHEM 7 (LYTES,BUN,CREA,GLUC) on 11-09-2024 Anion gap [Moles/Vol] 11 mmol/L Normal 7-17 [place] Comment on above: Performed By: #### IDALIA FUNESB, CHM7, HFP #### [facility] (DEFAULT) [address] [place] [address] 25767 Chloride [Moles/Vol] 100 mmol/L Normal 98-108 [facility] Comment on above: Performed By: #### IDALIA FUNESB, CHM7, HFP #### [facility] (DEFAULT) [address] [place] [address]120 CO2 [Moles/Vol] 26 mmol/L Normal 21-31 [facility] Comment on above: Performed By: #### IDALIA FUNESB, CHM7, HFP #### [facility] (DEFAULT) [address] [place] [address] 20460 Creatinine [Mass/Vol] 0.97 mg/dL Normal 0.50-1.20 [place] Comment on above: Performed By: #### M REMY IPB, CHM7, HFP #### [facility] (DEFAULT) [address] [place] [address] 71069 GFR/1.73 sq M.predicted among non-blacks MDRD (S/P/Bld) [Vol rate/Area] 59 mL/min/{1.73_m2} Low >=60 [facility] Comment on above: Result Comment: Repo rted eGFR is based on the CKD-EPI 2020 equation using creatinine, age, and sex. Performed By: #### M GO, IPB, CHM7, HFP #### [facility] (DEFAULT) [address] [place] [address] Glucose [Mass/Vol] 110 mg/dL Normal Nonfastin -179 mg/dL; Fastin-99 [facility] Comment on above: Performed By: #### M REMY IPB, CHM7, HFP #### [facility] (DEFAULT) [address] [place] [address]2527 Osmolality [Osmolality] 283 mosm/kg Normal 278-305 [facility] Comment on above: Performed By: #### Harini ALBERTO IPB, CHM7, HFP #### [facility] (DEFAULT) [address] [place] [address] Potassium [Moles/Vol] 4.2 mmol/L Normal 3.5-5.0 [place] Comment on above: Performed By: #### Harini ALBERTO IPB, CHM7, HFP #### [facility] (DEFAULT) [address] [place] [address]34 Sodium [Moles/Vol] 133 mmol/L Low 135-145 [facility] Comment on above: Performed By: #### Harini ALBERTO IPB, CHM7, HFP #### [facility] (DEFAULT) [address] [place] [address] 61829 Urea nitrogen [Mass/Vol] 20 mg/dL Normal 7-25 [facility] Comment on above: Performed By: #### Harini ALBERTO IPB, CHM7, HFP #### [facility] (DEFAULT) [address] [place] [address] 08447 Urea nitrogen/Creatinine [Mass ratio] 21 mg/mg Normal [facility] Comment on above: Performed By: #### Harini ALBERTO IPB, CHM7, HFP #### [facility] (DEFAULT) [address] [place] [address] 58833 HEPATIC FUNCTION PANELon Albumin [Mass/Vol] 3.7 g/dL Normal 3.5-5.0 [facility] Comment on above: Performed By: #### M GO, IPB, CHM7, HFP #### [facility] (DEFAULT) [address] [place] [address] 47184 ALP [Catalytic activity/Vol] 64 U/L Normal 32-126 [facility] Comment on above: Performed By: #### M GO, IPB, CHM7, HFP #### [facility] (DEFAULT) [address] [place] [address] 13452 ALT [Catalytic activity/Vol] 64 U/L High 9-48 [facility] Comment on above: Performed By: #### M GO, IPB, CHM7, HFP #### [facility] (DEFAULT) [address] [place] [address] 22999 AST [Catalytic activity/Vol] 41 U/L High 10-39 [facility] Comment on above: Performed By: #### M GO, IPB, CHM7, HFP #### [facility] (DEFAULT) [address] [place] [address] 97763 Bilirubin [Mass/Vol] 1.0 mg/dL Normal <1.5 [facility] Comment on above: Performed By: #### M GO, IPB, CHM7, HFP #### [facility] (DEFAULT) [address] [place] [address] 02044 Bilirubin.indirect [Mass/Vol] 0.2 mg/dL Normal <0.3 [facility] Comment on above: Performed By: #### M GO, IPB, CHM7, HFP #### [facility] (DEFAULT) [address] [place] [address] 09786 Protein [Mass/Vol] 5.9 g/dL Low 6.4-8.3 [facility] Comment on above: Performed By: #### M GO, IPB, CHM7, HFP #### [facility] (DEFAULT) [address] [place] [address] 99373 Laboratory - Chemistry and C hemistry - challengeon 11-09-2024 Albumin [Mass/Vol] 3.7 g/dL 3.5 - 5.0 g/dL [facility] ALP [Catalytic activity/Vol] 64 U/L 32 - 126 U/L [facility] ALT [Catalytic activity/Vol] 64 U/L High 9 - 48 U/L [facility] Anion gap [Moles/Vol] 11 mmol/L 7 - 17 mmol/L [facility] AST [Catalytic activity/Vol] 41 U/L High 10 - 39 U/L [facility] Bilirubin [Mass/Vol] 1 mg/dL NINF - 1.5 mg/dL [facility] Bilirubin.direct [Mass/Vol] 0.2 mg/dL NINF - 0.3 mg/dL [facility] Chloride [Moles/Vol] 100 mmol/L 98 - 10 8 mmol/L [facility] CO2 [Moles/Vol] 26 mmol/L 21 - 31 mmol/L [facility] Creatinine [Mass/Vol] 0.97 mg/dL 0.50 - 1.20 mg/dL [facility] Glucose [Mass/Vol] 110 mg/dL 70 - 179 mg/dL [facility] Magnesium [Mass/Vol] 1.9 mg/dL 1.6 - 2 .6 mg/dL [facility] Osmolality Calc [Osmolality] 283 [facility] Phosphate [Mass/Vol] 3.6 mg/dL 2.2 - 4 .6 mg/dL [facility] Potassium [Moles/Vol] 4.2 mmol/L 3.5 - 5.0 mmol/L [facility] Protein [Mass/Vol] 5.9 g/dL Low 6.4 - 8.3 g/dL [facility] Sodium [Moles/Vol] 133 mmol/L Low 135 - 145 mmol/L [facility] Urea nitrogen [Mass/Vol] 20 mg/dL 7 - 25 mg/dL [facility] Urea nitrogen/Creatinine [Mass ratio] 21 mg/mg [facility] Laboratory - Coagulationon 0 11-09-2024 aPTT Coag (PPP) [Time] 31.6 s OS [facility] INR Coag (Bld) [Relative time] 1.1 {INR} 0.9 - 1.1 [facility] PT Coag (PPP) [Time] 14 s [facility] Laboratory - Hematology and Cell countson 11-09-2024 Erythrocyte distribution width (RBC) [Ratio] 13.2 % 10.8 - 14.9 % [facility] Hematocrit (Bld) [Volume fraction] 28.5 % Low 34.9 - 44.3 % [facility] Hemoglobin (Bld) [Mass/Vol] 10.4 g/dL Low 11.4 - 15.2 g/dL [facility] MCH (RBC) [Entitic mass] 33.5 pg 25.9 - 33.9 pg [facility] MCHC (RBC) [Mass/Vol] 36.5 g/dL High 31.4 - 35.9 g/dL [facility] MCV (RBC) [Entitic vol] 91.9 fL 79.6 - 97.7 fL [facility] Platelet mean volume (Bld) [Entitic vol] 10.4 fL 8.5 - 12.2 fL [facility] Platelets (Bld) [#/Vol] 182 10*3/uL 150 - 393 K/uL [facility] RBC (Bld) [#/Vol] 3.1 10*6/uL Low [facility] WBC (Bld) [#/Vol] 6.17 10*3/uL 3.99 - 11. 19 K/uL [facility] MAGNESIUMon 11-09-2024 Magnesium [Mass/Vol] 1.9 mg/dL Normal 1.6-2.6 [facility] Comment on above: Performed By: #### M REMY, IPMark, CHM7, HFP #### [facility] (DEFAULT) [address] [place] [address] No Panel Informationon 11-09 FABY Jacques - [...] this period of recording. Brittaney Ferraro MD Production Control Manager Department of Neurology and Epilepsy [facility] eGFR, CKD-EPI, Female 57 Low - PINF [facility] Comment on above: Reported eGFR is bas ed on the CKD-EPI 2020 equation using creatinine, age, and sex. Interpretation and review of laboratory results Normal [facility] Interpretation and review of laboratory results Abnormal [facility] Interpretation and review of laboratory results Normal [facility] Interpretation and review of laboratory results Abnormal [facility] Radiology Study observation (narrative) [facility] PHOSPHATE, INORGANICon 11-09 Phosphorous 3.6 mg/dL Normal 2.2-4.6 [facility] Comment on above: Performed By: #### M GO, IPB, CHM7, HFP #### [facility] (DEFAULT) [address] [place] [address] 62170 PT,INR,PTTon 11-09-2024 aPTT Coag (Bld) [Time] 31.6 s Normal 24.0-34.3 [facility] Comment on above: Performed By: #### M GO, IPB, CHM7, HFP #### [facility] (DEFAULT) [address] [place] [address] 86081 INR Coag (PPP) [Relative time] 1.1 {INR} Normal 0.9-1.1 [facility] Comment on above: Performed By: #### M GO, IPB, CHM7, HFP #### [facility] (DEFAULT) [address] [place] [address] 11195 PT Coag (PPP) [Time] 14.0 s Normal 11.9-14.2 [facility] Comment on above: Performed By: #### M GO, IPB, CHM7, HFP #### [facility] (DEFAULT) [address] [place] [address] 14015 No Panel Informationon 11-08 [facility] 12 Lead EKGon 11-07-2024 12 Lead EKG [facility] [address] [place] [address] 12 Lead EKG 11/07/24 1110 MR#: [id number] Acct: [id number] Name: SARAH MCGUIRE Rep #: [id number] : 1945 78 From: Gemma Cordova MD [...] ECG Confirmed by STEW DEL VALLE, LORENA (1945), editorial cartoonist JOSE ARETHA ([id number]) on 11/12/2024 7:10:59 AM Referred By: MARIO Confirmed By: LORENA CORDOVA MD 11/12/24710 Date Gemma Cordova MD CC: Dr. Monika Venegas MD; Dr. Dallas Anand MD Signed Normal [facility] ALCOHOL (ETHANOL),BLOODon Alcohol, Serum <10 Normal <10 [facility] Comment on above: Order Comment: Non-f orensic. Performed By: #### M GO, IPB, CHM7, HFP #### [facility] (DEFAULT) [address] [place] [address] Absolute lymphocyte countOrd ered By: Dallas Anand on 11-07-2024 Lymphocytes Auto (Unsp spec) [#/Vol] 0.62 10*3/uL Low 0.83-4.51 [facility] Absolute neutrophil countOrd ered By: Dallas Anand on 11-07-2024 Neutrophils (Bld) [#/Vol] 5.3 10*3/uL 2.0-7.7 [facility] Activated partial thrombopla stin time (aPTT) in platelet poor plasma by coagulation aOrdered By: Dallas Anand on 11-07-2024 aPTT Coag (PPP) [Time] 33.0 s 24.1-36.2 [facility] Anion gap in Serum or Plasma Ordered By: Dallas Anand on 11-07-2024 Anion gap [Moles/Vol] 9 mmol/L 5-[address] [facility] Automated lymphocyte count a s percentage of total leukocytesOrdered By: Dallas Anand on 11-07-2024 Lymphocytes/100 WBC Auto (Unsp spec) 9.3 % Low 19-41 [facility] BUN/creatinine ratioOrdered By: Dallas Anand on 11-07-2024 Urea nitrogen/Creatinine [Mass ratio] 22.3 mg/mg High 10-20 [facility] Basic Metabolic Profile (BMP )on 11-07-2024 BUN/CRE 22.3 RATIO High 10-20 [facility] Comment on above: Performed By: #### L 499.0043 #### [facility] [address] [place], [address] Calcium [Mass/Vol] 9.1 mg/dL Normal 7.6-11.0 [facility] Comment on above: Performed By: #### L 499.0043 #### [facility] [address] [place], [address] Chloride [Moles/Vol] 98 mmol/L Normal 98-108 [facility] Comment on above: Performed By: #### L 499.0043 #### [facility] [address] [place], [address] CO2 [Moles/Vol] 23.7 mmol/L Normal 21.0-32.0 [facility] Comment on above: Performed By: #### L 499.0043 #### [facility] [address] [place], [address] Creatinine [Mass/Vol] 1.04 mg/dL Normal 0.70-1.[address] [facility] Comment on above: Performed By: #### L 499.0043 #### [facility] [address] [place], [address] ECRCL 30.99 ml/min Low 50-250 [facility] Comment on above: Performed By: #### L 499.0043 #### [facility] [address] [place], [address] GAP 9 Normal 5-15 [facility] Comment on above: Performed By: #### L 499.0043 #### [facility] [address] [place], [address] GFR/1.73 sq M.predicted among non-blacks MDRD (S/P/Bld) [Vol rate/Area] 54 mL/min/{1.73_m2} Low >60 [facility] Comment on above: Result Comment: mL/m in/1.73m2 CKD-EPI Creatinine Equation (2020) Performed By: #### L 499.0043 #### [facility] [address] [place], [address] Glucose [Mass/Vol] 101 mg/dL High 70-99 [facility] Comment on above: Performed By: #### L 499.0043 #### [facility] [address] [place], [address] Potassium [Moles/Vol] 4.5 mmol/L Normal 3.3-5.[address] [facility] Comment on above: Performed By: #### L 499.0043 #### [facility] [address] [place], [address] Sodium [Moles/Vol] 131 mmol/L Low 133-145 [facility] Comment on above: Performed By: #### L 499.0043 #### [facility] [address] [place], [address] Urea nitrogen [Mass/Vol] 23 mg/dL High 4-19 [facility] Comment on above: Performed By: #### L 499.0043 #### [facility] [address] [place], [address] Basophil percentageOrdered B y: Dallas Anand on 11-07-2024 Basophils/100 WBC (Bld) 0.3 % 0-1 [facility] Bedside Glucoseon 06-04-2025 FINGERSTICK GLU 99 mg/dL Normal 74-106 [facility] Comment on above: Result Comment: REJI KUMAR OF PATIENT CARE PER NURSING PROTOCOL Performed By: #### L 509.6001 #### [facility] [address] [place], [address] CBC AND ELECTRONIC DIFFon Abs Baso Auto < Normal 0.00-0.15 [facility] Comment on above: Performed By: #### M GO, IPB, CHM7, HFP #### [facility] (DEFAULT) [address] [place] [address] 48431 Abs Eos Auto < Normal 0.00-0.42 [facility] Comment on above: Performed By: #### M GO, IPB, CHM7, HFP #### [facility] (DEFAULT) [address] [place] [address] 08285 Basophils/100 WBC (Bld) 0.3 % Normal [facility] Comment on above: Performed By: #### M GO, IPB, CHM7, HFP #### [facility] (DEFAULT) [address] [place] [address] 13042 DIFF STATUS Electronic Differential Normal [facility] Comment on above: Performed By: #### M GO, IPB, CHM7, HFP #### [facility] (DEFAULT) [address] [place] [address] 54248 Eosinophils/100 WBC (Bld) 0.4 % Normal [facility] Comment on above: Performed By: #### M GO, IPB, CHM7, HFP #### [facility] (DEFAULT) [address] [place] [address] 27928 Hematocrit (Bld) [Volume fraction] 29.0 % Low 34.9-44.3 [facility] Comment on above: Performed By: #### M GO, IPB, CHM7, HFP #### [facility] (DEFAULT) [address] [place] [address] 83088 Hemoglobin (Bld) [Mass/Vol] 10.5 g/dL Low 11.4-15.2 [facility] Comment on above: Performed By: #### M GO, IPB, CHM7, HFP #### [facility] (DEFAULT) [address] [place] [address] 97260 Immature Grans % 0.4 % Normal [facility] Comment on above: Performed By: #### M GO, IPB, CHM7, HFP #### [facility] (DEFAULT) [address] [place] [address] 00448 Immature Grans Absolute < Normal <=0.08 [facility] Comment on above: Performed By: #### M GO, IPB, CHM7, HFP #### [facility] (DEFAULT) [address] [place] [address] 65650 Lymphocytes (Bld) [#/Vol] 0.69 10*3/uL Low 1.16-3.51 [facility] Comment on above: Performed By: #### M GO, IPB, CHM7, HFP #### [facility] (DEFAULT) [address] [place] [address] 93465 Lymphocytes/100 WBC (Bld) 10.2 % Normal [facility] Comment on above: Performed By: #### M REMY, IPB, CHM7, HFP #### [facility] (DEFAULT) [address] [place] [address] 72411 MCV (RBC) [Entitic vol] 91.5 fL Normal 79.6-97.7 [facility] Comment on above: Performed By: #### M GO, IPB, CHM7, HFP #### [facility] (DEFAULT) [address] [place] [address] 03953 Mean Cell Hgb 33.1 pg Normal 25.9-33.9 [facility] Comment on above: Performed By: #### M GO, IPB, CHM7, HFP #### [facility] (DEFAULT) [address] [place] [address] 10200 Mean Cell Hgb Conc 36.2 g/dL High 31.4-35.9 [facility] Comment on above: Performed By: #### M IDALIA ALBERTOB, CHM7, HFP #### [facility] (DEFAULT) [address] [place] [address] 35252 Monocytes (Bld) [#/Vol] 0.62 10*3/uL Normal 0.22-0.87 [facility] Comment on above: Performed By: #### Harini ALBERTO IPB, CHM7, HFP #### [facility] (DEFAULT) [address] [place] [address] 91385 Monocytes/100 WBC (Bld) 9.2 % Normal [facility] Comment on above: Performed By: #### Harini ALBERTO IPB, CHM7, HFP #### [facility] (DEFAULT) [address] [place] [address] 67452 Nucleated RBC 0.0 /100 WBC Normal <=0.2 [facility] Comment on above: Performed By: #### Harini ALBERTO IPB, CHM7, HFP #### [facility] (DEFAULT) [address] [place] [address] 78712 Platelet mean volume (Bld) [Entitic vol] 10.0 fL Normal 8.5-12.2 [facility] Comment on above: Performed By: #### IDALIA FUNESB, CHM7, HFP #### [facility] (DEFAULT) [address] [place] [address] 87940 Platelets (Bld) [#/Vol] 169 10*3/uL Normal 150-393 [facility] Comment on above: Performed By: #### IDALIA FUNESB, CHM7, HFP #### [facility] (DEFAULT) [address] [place] [address] 24884 RBC (Bld) [#/Vol] 3.17 10*6/uL Low 3.91-5.04 [facility] Comment on above: Performed By: #### IDALIA FUNESB, CHM7, HFP #### [facility] (DEFAULT) [address] [place] [address] 05928 RBC Distribution 13.1 % Normal 10.8-14.9 [facility] Comment on above: Performed By: #### M GO, IPB, CHM7, HFP #### [facility] (DEFAULT) [address] [place] [address] 34637 Segs + Bands Auto 79.5 % Normal [facility] Comment on above: Performed By: #### M GO, IPB, CHM7, HFP #### [facility] (DEFAULT) [address] [place] [address] 26244 Segs + Bands,Absolute Auto 5.35 K/uL Normal 1.64-7.28 [facility] Comment on above: Performed By: #### M GO, IPB, CHM7, HFP #### [facility] (DEFAULT) [address] [place] [address] 58159 WBC (Bld) [#/Vol] 6.74 10*3/uL Normal 3.99-11.19 [facility] Comment on above: Performed By: #### M GO, IPB, CHM7, HFP #### [facility] (DEFAULT) [address] [place] [address] 71460 CBC W/Diff, Automatedon 06-0 4-5 Absolute Lymph 0.62 X10 3/uL Low 0.83-4.51 [facility] Comment on above: Performed By: #### L 499.0043 #### [facility] [address] [place], [address] Absolute Neut 5.3 X10 3/uL Normal 2.0-7.7 [facility] Comment on above: Performed By: #### L 499.0043 #### [facility] [address] [place], [address] Basophils/100 WBC (Bld) 0.3 % Normal 0-1 [facility] Comment on above: Performed By: #### L 499.0043 #### [facility] [address] [place], [address] Eosinophils/100 WBC (Bld) 0.4 % Normal 0-5 [facility] Comment on above: Performed By: #### L 499.0043 #### [facility] [address] [place], [address] Erythrocyte distribution width (RBC) [Ratio] 13.3 % Normal 11.6-14.6 [facility] Comment on above: Performed By: #### L 499.0043 #### [facility] [address] [place], [address] Hematocrit (Bld) [Volume fraction] 28.5 % Low 37-47 [facility] Comment on above: Performed By: #### L 499.0043 #### [facility] [address] [place], [address] Hemoglobin (Bld) [Mass/Vol] 10.2 g/dL Low 12.0-15.0 [facility] Comment on above: Performed By: #### L 499.0043 #### [facility] [address] [place], [address] IG% 0.900 Normal 0.0-0.9 [facility] Comment on above: Result Comment: IG% - Immature Granulocytes (promyelocytes, myelocytes and metamyelocytes) > 1% indicates that a LEFT SHIFT is Present. Performed By: #### L 499.0043 #### [facility] [address] [place], [address] Lymphocytes/100 WBC (Bld) 9.3 % Low 19-41 [facility] Comment on above: Performed By: #### L 499.0043 #### [facility] [address] [place], [address] MCH (RBC) [Entitic mass] 33.0 pg High 27.0-32.0 [facility] Comment on above: Performed By: #### L 499.0043 #### [facility] [address] [place], [address] MCHC (RBC) [Mass/Vol] 35.8 g/dL Normal 32-[address] [facility] Comment on above: Performed By: #### L 499.0043 #### [facility] [address] [place], [address] MCV (RBC) [Entitic vol] 92.2 fL Normal 81-99 [facility] Comment on above: Performed By: #### L 499.0043 #### [facility] [address] [place], [address] Monocytes/100 WBC (Bld) 9.9 % Normal 0-10 [facility] Comment on above: Performed By: #### L 499.0043 #### [facility] [address] [place], [address] Neutrophils/100 WBC (Bld) 79.2 % High 47-70 [facility] Comment on above: Performed By: #### L 499.0043 #### [facility] [address] [place], [address] Nucleated RBC (Bld) [#/Vol] 0 10*3/uL Normal 0-5 [facility] Comment on above: Performed By: #### L 499.0043 #### [facility] [address] [place], [address] Platelet mean volume (Bld) [Entitic vol] 9.8 fL Normal 6.2-12.0 [facility] Comment on above: Performed By: #### L 499.0043 #### [facility] [address] [place], [address] Platelets (Bld) [#/Vol] 194 10*3/uL Normal 150-450 [facility] Comment on above: Performed By: #### L 499.0043 #### [facility] [address] [place], [address] RBC (Bld) [#/Vol] 3.09 10*6/uL Low 4.2-5.4 [facility] Comment on above: Performed By: #### L 499.0043 #### [facility] [address] [place], [address] RDW SD 45.2 fl High 35.1-43.9 [facility] Comment on above: Performed By: #### L 499.0043 #### [facility] [address] [place], [address] WBC (Bld) [#/Vol] 6.7 10*3/uL Normal 4.4-11.0 [facility] Comment on above: Performed By: #### L 499.0043 #### [facility] [address] [place], [address] CHM 7 - EDon 11-07-2024 Anion gap [Moles/Vol] 15 mmol/L Normal 7-17 [place] Comment on above: Performed By: #### M GO, IPB, CHM7, HFP #### [facility] (DEFAULT) [address] [address] Chloride [Moles/Vol] 100 mmol/L Normal 98-108 [facility] Comment on above: Performed By: #### M GO, IPB, CHM7, HFP #### [facility] (DEFAULT) [address] [address] CO2 [Moles/Vol] 21 mmol/L Normal 21-31 [facility] Comment on above: Performed By: #### M GO, IPB, CHM7, HFP #### [facility] (DEFAULT) [address] [address] Creatinine [Mass/Vol] 0.93 mg/dL Normal 0.50-1.20 [place] Comment on above: Performed By: #### GA FUNES CHM7, HFP #### [facility] (DEFAULT) [address] [place] [address]1964 GFR/1.73 sq M.predicted among non-blacks MDRD (S/P/Bld) [Vol rate/Area] 62 mL/min/{1.73_m2} Normal >=60 [facility] Comment on above: Result Comment: Repo rted eGFR is based on the CKD-EPI 2020 equation using creatinine, age, and sex. Performed By: #### GA FUNES CHM7, HFP #### [facility] (DEFAULT) [address] [place] [address]656 Glucose [Mass/Vol] 107 mg/dL Normal Nonfastin -179 mg/dL; Fastin-99 [facility] Comment on above: Performed By: #### GA FUNES, CARLM7, HFP #### [facility] (DEFAULT) [address] [place] [address] 67226 Osmolality [Osmolality] 281 mosm/kg Normal 278-305 [facility] Comment on above: Performed By: #### AG FUNES, CARLM7, HFP #### [facility] (DEFAULT) [address] [place] [address] 18057 Potassium [Moles/Vol] 4.5 mmol/L Normal 3.5-5.0 [place] Comment on above: Performed By: #### GA FUNES, CHM7, HFP #### [facility] (DEFAULT) [address] [place] [address] 15160 Sodium [Moles/Vol] 131 mmol/L Low 135-145 [facility] Comment on above: Performed By: #### GA FUNES, CHM7, HFP #### [facility] (DEFAULT) [address] [place] [address] 77160 Urea nitrogen [Mass/Vol] 22 mg/dL Normal 7-25 [facility] Comment on above: Performed By: #### M GA ALBERTO, CARLM7, HFP #### [facility] (DEFAULT) [address] [place] [address] Urea nitrogen/Creatinine [Mass ratio] 24 mg/mg Normal [facility] Comment on above: Performed By: #### M GA ALBERTO, CARLM7, HFP #### [facility] (DEFAULT) [address] [place] [address] CT Cervical spine WO contras ton 11-07-2024 [...] IMPRESSION: No acute fracture or traumatic malalignment. [facility] Radiology Study observation (narrative) [facility] CT HEAD WITHOUT CONTRASTon 0 11-07-2024 CT [...] effect, or acute large territory infarct. Normal [facility] CT Head WO contraston 2024 IMPRESSION: Status [...] mass effect, or acute large territory infarct. [facility] Radiology Study observation (narrative) [facility] CT Head WO contrastOrdered B y: Zahida Yang on 11-07-2024 [facility] Work Phone: CT SPINE CERVICAL WITHOUT [...] No acute fracture or traumatic malalignment. Normal [facility] Carbon dioxide, total [Moles /volume] in Central venous bloodOrdered By: Dallas Anand on 11-07-2024 CO2 [Moles/Vol] 23.7 mmol/L 21.0-32.0 [facility] Chloride assayOrdered By: Mario Anand on 11-07-2024 Chloride [Moles/Vol] 98 mmol/L 98-108 [facility] Emergency Department Summary on 11-07-2024 Emergency Department Summary [facility] Medical Records Department [address] [place] [address] Emergency Department Summary 11/07/24 MR#: [id number] Acct: [id number] Name: SAARH MCGUIRE Rep #: [id number] : 1945 78 From: Dallas Anand MD [...] is an 78-year-old woman. She was at [email or web address]. Other participants called daughter at 1021 because [...] Room Air (more content not included)... Normal [facility] Eosinophil percentageOrdered By: Dallas Anand on 11-07-2024 Eosinophils/100 WBC (Bld) 0.4 % 0-5 [facility] Erythrocyte distribution wid th ratioOrdered By: Dallasjamison Anand on 11-07-2024 Erythrocyte distribution width (RBC) [Ratio] 13.3 % 11.6-14.6 [facility] Erythrocyte distribution wid th standard deviationOrdered By: Dallasjamison Anand on 11-07-2024 Erythrocyte distribution width (RBC) [Ratio] 45.2 fl High 35.1-43.9 [facility] Glomerular filtration rate ( GFR) estimation/1.73 sq m using serum, plasma, or whole bOrdered By: Dallas Anand on 11-07-2024 GFR/1.73 sq M.predicted among non-blacks MDRD (S/P/Bld) [Vol rate/Area] 54 mL/min/{1.73_m2} Low >60 [facility] Comment on above: mL/min/1.73m2 CKD-EP I Creatinine Equation (2020) [facility] deOrdered By: Dallas nAand on 11-07-2024 Glucose [Mass/Vol] 99 mg/dL 74-106 [facility] Comment on above: MANAGEMENT OF PATIEN T CARE PER NURSING PROTOCOL HIGH SENSITIVITY TROPONIN I - SINGLE ORDERon 11-07-2024 hs-Troponin I 9 ng/L Normal <34 [facility] Comment on above: Order Comment: Acute Coronary Syndrome (ACS): Initial Evaluation and Management: [email or web address] Performed By: #### L ABHSTI1, C7ED, TSH #### [facility] (DEFAULT) [address] [place] [address] 18882 Hematocrit Auto (Bld) [Volum e fraction]Ordered By: Dallasjamison Anand on 11-07-2024 Hematocrit (Bld) [Volume fraction] 28.5 % Low 37-47 [facility] Hemoglobin measurementOrdere d By: Dallasjamison Anand on 11-07-2024 Hemoglobin (Bld) [Mass/Vol] 10.2 g/dL Low 12.0-15.0 [facility] Immature granulocytes/100 WB C Auto (Bld)Ordered By: Dallasjamison Anand on 11-07-2024 Immature granulocytes/100 WBC (Bld) 0.900 % 0.0-0.9 [facility] Comment on above: IG% - Immature Granu locytes (promyelocytes, myelocytes and metamyelocytes) > 1% indicates that a LEFT SHIFT is Present. International normalized rat io (INR) calculationOrdered By: Dallasjamison Anand on 11-07-2024 INR Coag (Bld) [Relative time] 1.4 {INR} [facility] L499.0042on 11-07-2024 Trop T High Sen Normal <=14 [facility] Comment on above: Result Comment: Canc elled via OM: Order cancelled - Patient discharged Performed By: #### L 509.6001 #### [facility] [address] [place], [place], [id number] L499.0043on 11-07-2024 Trop T High Sen Normal <=14 [facility] Comment on above: Result Comment: Canc elled via OM: Order cancelled - Patient discharged Performed By: #### L 509.6001 #### [facility] [address] [place], [address] L501.4021on 11-07-2024 Trop T High Sen 21 ng/L High <=14 [facility] Comment on above: Performed By: #### L 499.0043 #### [facility] [address] [place], [address] Laboratory - Chemistry and C hemistry - challengeOrdered By: Annika Pitts on 11-07-2024 pH (U) 7.0 [pH] 5.0 - 7.0 [facility] Specific gravity (U) [Rel density] 1.014 1.001 - 1.035 [facility] Urobilinogen (U) [Mass/Vol] 1.0 E.U./dL 0.2 E.U/dL, 1.0 E.U/dL [facility] - Chemistry and C hemistry - challengeon 11-07-2024 Anion gap [Moles/Vol] 15 mmol/L 7 - 17 mmol/L [facility] Chloride [Moles/Vol] 100 mmol/L 98 - 10 8 mmol/L [facility] CO2 [Moles/Vol] 21 mmol/L 21 - 31 mmol/L [facility] Creatinine [Mass/Vol] 0.93 mg/dL 0.50 - 1.20 mg/dL [facility] Glucose [Mass/Vol] 107 mg/dL 70 - 179 mg/dL [facility] Osmolality Calc [Osmolality] 281 [facility] Potassium [Moles/Vol] 4.5 mmol/L 3.5 - 5.0 mmol/L [facility] Sodium [Moles/Vol] 131 mmol/L Low 135 - 145 mmol/L [facility] Urea nitrogen [Mass/Vol] 22 mg/dL 7 - 25 mg/dL [facility] Urea nitrogen/Creatinine [Mass ratio] 24 mg/mg [facility] TSH Qn 1.934 m[IU]/L [facility] Troponin I.cardiac High sensitivity method [Mass/Vol] 9 ng/L NINF - 34 ng/L [facility] Base excess Calc (Bld) [Moles/Vol] -1.9000 mmol/L -3.0 - 3.0 mmol/L [facility] Calcium.ionized (Bld) [Mass/Vol] 4.45 mg/dL Low 4.60 - 5.30 mg/dL [facility] Carboxyhemoglobin (Bld) [Mass fraction] 1.6 % High NINF - 1.5 % [facility] CO2 (Bld) [Partial pressure] 29 mm[Hg] Low [facility] Glucose [Mass/Vol] 102 mg/dL 70 - 179 mg/dL [facility] HCO3 (Bld) [Moles/Vol] 22 mmol/L 22 - 29 mmol/L [facility] Lactate [Moles/Vol] 0.7 mmol/L 0.5 - 1. 6 mmol/L [facility] Methemoglobin (Bld) [Mass fraction] 1.1 % NINF - 1.5 % [facility] Oxygen (Bld) [Partial pressure] 106 mm[Hg] mm Hg [facility] Comment on above: Venous pO2 is not re commended for the evaluation of oxygen status, clinical correlation is recommended. pH (Bld) 7.48 [pH] High 7.32 - 7.43 [facility] Potassium [Moles/Vol] 4.3 mmol/L 3.5 - 5.0 mmol/L [facility] Sodium [Moles/Vol] 128 mmol/L Low 135 - 145 mmol/L [facility] Laboratory - Coagulationon 0 11-07-2024 INR Coag (Bld) [Relative time] 1.3 {INR} High 0.9 - 1.1 [facility] PT Coag (PPP) [Time] 15.8 s High [facility] Laboratory - Drug toxicology on 11-07-2024 Amphetamine+Methampheta mine Screen (U) [Mass/Vol] Not detected Cutoff: 500 ng/mL [facility] Barbiturates Ql (U) Not detected Cutoff: 200 ng/mL [facility] Benzodiazepines Ql (U) Not detected Cutof f: 200 ng/mL [facility] Buprenorphine Ql (U) Not detected Cutoff: 5 ng/mL [facility] Cannabinoids Screen Ql (U) Not detected Cutoff: 50 ng/mL [facility] Cocaine Ql (U) Not detected Cutoff: 150 ng/mL [facility] fentaNYL Ql (U) Not detected Cutoff: 1 ng/mL [facility] Methadone Ql (U) Not detected Cutoff: 300 ng/mL [facility] Opiates Ql (U) Not detected Cutoff: 300 ng/mL [facility] oxyCODONE Ql (U) Not detected Cutoff: 100 ng/mL [facility] Ethanol Ql (Bld) mg/dL NINF - 10 mg/dL [facility] Laboratory - Hematology and Cell countson 11-07-2024 Basophils (Bld) [#/Vol] K/uL 0.00 - 0.15 K/uL [facility] Basophils/100 WBC (Bld) 0.3 % [facility] Differential cell count method Nom (Bld) Electronic Differential [facility] Eosinophils (Bld) [#/Vol] K/uL 0.00 - 0.42 K/uL [facility] Eosinophils/100 WBC (Bld) 0.4 % [facility] Erythrocyte distribution width (RBC) [Ratio] 13.1 % 10.8 - 14.9 % [facility] Hematocrit (Bld) [Volume fraction] 29 % Low 34.9 - 44.3 % [facility] Hemoglobin (Bld) [Mass/Vol] 10.5 g/dL Low 11.4 - 15.2 g/dL [facility] Immature granulocytes (Bld) [#/Vol] K/uL NINF - 0.08 K/uL [facility] Immature granulocytes/100 WBC (Bld) 0.4 % [facility] Lymphocytes (Bld) [#/Vol] 0.69 10*3/uL Low 1.16 - 3.51 K/uL [facility] Lymphocytes/100 WBC (Bld) 10.2 % [facility] MCH (RBC) [Entitic mass] 33.1 pg 25.9 - 33.9 pg [facility] MCHC (RBC) [Mass/Vol] 36.2 g/dL High 31.4 - 35.9 g/dL [facility] MCV (RBC) [Entitic vol] 91.5 fL 79.6 - 97.7 fL [facility] Monocytes (Bld) [#/Vol] 0.62 10*3/uL 0.22 - 0.87 K/uL [facility] Monocytes/100 WBC (Bld) 9.2 % [facility] Neutrophils (Bld) [#/Vol] 5.35 10*3/uL 1.64 - 7.28 K/uL [facility] Nucleated RBC/100 WBC (Bld) [Ratio] 0 % NINF [facility] Platelet mean volume (Bld) [Entitic vol] 10 fL 8.5 - 12.2 fL [facility] Platelets (Bld) [#/Vol] 169 10*3/uL 150 - 393 K/uL [facility] RBC (Bld) [#/Vol] 3.17 10*6/uL Low [facility] Segmented neutrophils/100 WBC (Bld) 79.5 % [facility] WBC (Bld) [#/Vol] 6.74 10*3/uL 3.99 - 11. 19 K/uL [facility] Hematocrit (Bld) [Volume fraction] 33 % Low 34 - 46 % [facility] Hemoglobin (Bld) [Mass/Vol] 11.1 g/dL Low 11.4 - 15.2 g/dL [facility] Laboratory - Specimen inform ationOrdered By: Annika Pitts on 11-07-2024 Appearance (U) Clear Clear [facility] Color (U) Yellow Yellow [facility] Laboratory - Specimen inform ationon 11-07-2024 Specimen source Nom (Unsp spec) Venous [facility] Laboratory - UrinalysisOrder ed By: Annika Pitts on 11-07-2024 Bacteria LM Ql (Urine sed) PRESENT Abnormal ABSENT [facility] Epithelial cells.squamous LM Ql (Urine sed) 0-2/hpf 0-2/hpf, 3-5/hpf = 1+ [facility] Glucose Test strip (U) [Mass/Vol] Negative Negative [facility] Ketones (U) [Mass/Vol] Negative Negative [facility] Leukocyte esterase Test strip Ql (U) Moderate Abnormal Negative [facility] Nitrite Ql (U) Positive Abnormal Negative [facility] Protein (U) [Mass/Vol] Negative Negative [facility] RBC (U) [#/Vol] Negative Negative [facility] RBC LM.HPF (Urine sed) [#/Area] 0-2 [facility] WBC LM.HPF (Urine sed) [#/Area] 6 - 10 Abnormal [facility] MCV (mean corpuscular volume ) determinationOrdered By: Dallas Anand on 11-07-2024 MCV (RBC) [Entitic vol] 92.2 fL 81-99 [facility] Mean corpuscular hemoglobin (MCH) determinationOrdered By: Dallas Anand on 11-07-2024 MCH (RBC) [Entitic mass] 33.0 pg High 27.0-32.0 [facility] Mean corpuscular hemoglobin concentration (MCHC) determinationOrdered By: Dallas Anand on 11-07-2024 MCHC (RBC) [Mass/Vol] 35.8 g/dL 32-[address] [facility] Mean platelet volume determi nationOrdered By: Dallas Anand on 11-07-2024 Platelet mean volume (Bld) [Entitic vol] 9.8 fL 6.2-12.0 [facility] Monocyte percentageOrdered B y: Dallas Anand on 11-07-2024 Monocytes/100 WBC (Bld) 9.9 % 0-10 [facility] Neutrophil percentageOrdered By: Dallas Anand on 11-07-2024 Neutrophils/100 WBC (Bld) 79.2 % High 47-70 [facility] No Panel InformationOrdered By: Annika Pitts on 11-07-2024 Interpretation and review of laboratory results Abnormal [facility] No Panel Informationon 11-07 Interpretation and review of laboratory results Normal [facility] For medical purposes only. Positive results are unconfirmed unless otherwise noted. [facility] eGFR, CKD-EPI, Female 62 - PINF [facility] Comment on above: Reported eGFR is bas ed on the CKD-EPI 2020 equation using creatinine, age, and sex. Interpretation and review of laboratory results Abnormal [facility] ABO/RH(D) TYPE AB NEG [facility] Specimen Expiration 11/10/2024 23:59 [facility] Interpretation and review of laboratory results Normal [facility] Interpretation and review of laboratory results Normal [facility] Interpretation and review of laboratory results Normal [facility] Interpretation and review of laboratory results Abnormal [facility] Interpretation and review of laboratory results Abnormal [facility] Interpretation and review of laboratory results Abnormal [facility] Oxyhemoglobin 96 % 94 - 98 % [facility] Nucleated red blood cell per centageOrdered By: Dallas Anand on 11-07-2024 Nucleated RBC/100 WBC (Bld) [Ratio] 0 % 0-5 [facility] PROTIME-INRon 11-07-2024 INR Coag (PPP) [Relative time] 1.3 {INR} High 0.9-1.1 [facility] Comment on above: Performed By: #### M GO, IPB, CHM7, HFP #### [facility] (DEFAULT) [address] [place] [address] PT Coag (PPP) [Time] 15.8 s High 11.9-14.2 [facility] Comment on above: Performed By: #### M GO, IPB, CHM7, HFP #### [facility] (DEFAULT) [address] [place] [address] Partial Thromboplast Timeon 11-07-2024 aPTT Coag (Bld) [Time] 33.0 s Normal 24.1-36.2 [facility] Comment on above: Performed By: #### L 499.0043 #### [facility] [address] [place], [address] Platelet countOrdered By: Mario Anand on 11-07-2024 Platelets (Bld) [#/Vol] 194 10*3/uL 150-450 [facility] Portable XR Chest Viewson IMPRESSION: No [...] disease or early developing edema. Clinically correlate. [facility] Radiology Study observation (narrative) [facility] Portable XR Chest ViewsOrder ed By: Adele Luna on 11-07-2024 [facility] Work Phone: Potassium measurement (mass/ volume)Ordered By: Dallas Anand on 11-07-2024 Potassium (Unsp spec) [Mass/Vol] 4.5 mmol/L 3.3-5.1 [facility] Prothrombin Time w/INRon INR Coag (PPP) [Relative time] 1.4 {INR} Normal [facility] Comment on above: Performed By: #### L 499.0043 #### [facility] [address] [place], [address] PT Coag (PPP) [Time] 17.1 s High 11.7-14.9 [facility] Comment on above: Performed By: #### L 499.0043 #### [facility] [address] [place], [place], [id number] ([phone] Prothrombin timeOrdered By: Dallas Anand on 11-07-2024 PT Coag (PPP) [Time] 17.1 s High 11.7-14.9 [facility] RBC Auto (Bld) [#/Vol]Ordere d By: Dallas Anand on 11-07-2024 RBC (Bld) [#/Vol] 3.09 10*6/uL Low 4.2-5.4 [facility] STROKE Brain/Head without Co nton 11-07-2024 STROKE Brain/Head without Cont [facility] Services [address] [place], [place] [id number] STROKE Brain/Head without Cont MR#: [id number] Acct: [id number] Name: SARAH MCGUIRE Rep #: [id number] : 1945 F 78 From: Darnell Rivera PCP: Dr. Monika Venegas MD Status: REG ER Study: STROKE Brain/Head without Cont Date of Exam: 0 11/07/24 Exam# [id number] Ordering Dr: Dallas Anand MD PROCEDURE: STROKE [...] areas infarction, of uncertain age. Reading Location: [address] CC: Dr. Monika Venegas MD; Dr. Dallas Anand MD Electric Operator: Signed Normal [facility] Serum creatinine measurement (mass/volume)Ordered By: Dallas Anand on 11-07-2024 Creatinine [Mass/Vol] 1.04 mg/dL 0.70-1.[address] [facility] Serum glucose measurement (m ass/volume)Ordered By: Dallas Anand on 11-07-2024 Glucose [Mass/Vol] 101 mg/dL High 70-99 [facility] Serum or plasma calcium ena urement (mass/volume)Ordered By: Dallas Anand on 11-07-2024 Calcium [Mass/Vol] 9.1 mg/dL 7.6-11.0 [facility] Serum or plasma urea nitroge n measurement (mass/volume)Ordered By: Dallas Anand on 11-07-2024 Urea nitrogen [Mass/Vol] 23 mg/dL High 4-19 [facility] Sodium levelOrdered By: Dallas Anand on 11-07-2024 Sodium [Moles/Vol] 131 mmol/L Low 133-145 [facility] TSHon 11-07-2024 TSH 1.934 uIU/mL Normal 0.550-4.780 [facility] Comment on above: Performed By: #### IDALIA FUNESB, CHM7, HFP #### [facility] (DEFAULT) [address] [place] [address] TYPE AND SCREENon 11-07-2024 ABO/RH(D) TYPE AB NEG Normal [facility] Comment on above: Performed By: #### IDALIA FUNESB, CHM7, HFP #### [facility] (DEFAULT) [address] [place] [address] Specimen Expiration 11/10/2024 23:59 Normal [facility] Comment on above: Performed By: #### IDALIA FUNESB, CHM7, HFP #### [facility] (DEFAULT) [address] [place] [address] Troponin T.cardiac [Mass/vol ume] in Serum or Plasma by High sensitivity methodOrdered By: Dallas Anand on 11-07-2024 Troponin T.cardiac High sensitivity method [Mass/Vol] 21 ng/L High <14 [facility] Comment on above: Delta: 16 on URINALYSIS REFLEX TO CULTURE PERFORMABLEon 11-07-2024 Appearance (U) Clear Normal Clear [facility] Comment on above: Order Comment: For i ndwelling catheters, specimen collection is acceptable on catheter day 1 and 2 only. ? Performed By: #### U [id number] #### [facility] (DEFAULT) [address] [place] [address] Bacteria PRESENT Abnormal ABSENT [facility] Comment on above: Order Comment: For i ndwelling catheters, specimen collection is acceptable on catheter day 1 and 2 only. ? Performed By: #### U [id number] #### [facility] (DEFAULT) [address] [place] [address] Blood Urine Negative Normal Negative [facility] Comment on above: Order Comment: For i ndwelling catheters, specimen collection is acceptable on catheter day 1 and 2 only. ? Performed By: #### U [id number] #### [facility] (DEFAULT) [address] [place] [address] Color (U) Yellow Normal Yellow [facility] Comment on above: Order Comment: For i ndwelling catheters, specimen collection is acceptable on catheter day 1 and 2 only. ? Performed By: #### U [id number] #### [facility] (DEFAULT) [address] [place] [address] Glucose Ql (U) Negative Normal Negative [facility] Comment on above: Order Comment: For i ndwelling catheters, specimen collection is acceptable on catheter day 1 and 2 only. ? Performed By: #### U [id number] #### [facility] (DEFAULT) [address] [place] [address] Ketones Ql (U) Negative Normal Negative [facility] Comment on above: Order Comment: For i ndwelling catheters, specimen collection is acceptable on catheter day 1 and 2 only. ? Performed By: #### U [id number] #### [facility] (DEFAULT) [address] [place] [phone] Leukocyte esterase Test strip Ql (U) Moderate Abnormal Negative [facility] Comment on above: Order Comment: For i ndwelling catheters, specimen collection is acceptable on catheter day 1 and 2 only. ? Performed By: #### U [id number] #### [facility] (DEFAULT) [address] [place] [address] 22510 Nitrites Urine Positive Abnormal Negative [facility] Comment on above: Order Comment: For i ndwelling catheters, specimen collection is acceptable on catheter day 1 and 2 only. ? Performed By: #### U [id number] #### [facility] (DEFAULT) [address] [place] [address]41 pH (U) 7.0 [pH] Normal 5.0-7.0 [facility] Comment on above: Order Comment: For i ndwelling catheters, specimen collection is acceptable on catheter day 1 and 2 only. ? Performed By: #### U [id number] #### [facility] (DEFAULT) [address] [place] [address] 89576 Protein Urine Negative Normal Negative [facility] Comment on above: Order Comment: For i ndwelling catheters, specimen collection is acceptable on catheter day 1 and 2 only. ? Performed By: #### U [id number] #### [facility] (DEFAULT) [address] [place] [address] 10418 RBC Urine 0-2 Normal 0-2 [facility] Comment on above: Order Comment: For i ndwelling catheters, specimen collection is acceptable on catheter day 1 and 2 only. ? Performed By: #### U [id number] #### [facility] (DEFAULT) [address] [place] [address] 14462 Specific [place] Urine 1.014 Normal 1.001-1.035 [facility] Comment on above: Order Comment: For i ndwelling catheters, specimen collection is acceptable on catheter day 1 and 2 only. ? Performed By: #### U [id number] #### [facility] (DEFAULT) [address] [place] [address]85 Squamous/Epithelial Cells, Urine 0-2/hpf Normal 0-2/hpf, 3-5/hpf = 1+ [facility] Comment on above: Order Comment: For i ndwelling catheters, specimen collection is acceptable on catheter day 1 and 2 only. ? Performed By: #### U [id number] #### [facility] (DEFAULT) [address] [place] [address] 06915 Urobilinogen Urine 1.0 E.U./dL Normal 0.2 E.U/d L, 1.0 E.U/dL [facility] Comment on above: Order Comment: For i ndwelling catheters, specimen collection is acceptable on catheter day 1 and 2 only. ? Performed By: #### U [id number] #### [facility] (DEFAULT) [address] [place] [address] 12003 WBC Urine 6 - 10 Abnormal 0 - 5 [facility] Comment on above: Order Comment: For i ndwelling catheters, specimen collection is acceptable on catheter day 1 and 2 only. ? Performed By: #### U [id number] #### [facility] (DEFAULT) [address] [place] [address] 81445 URINE DRUG SCREEN 11-07 Amphetamine/Methampheta mine Not detected Normal Cutoff: 500 ng/mL [facility] Comment on above: Order Comment: For m edical purposes only. Positive results are unconfirmed unless otherwise noted. Performed By: #### M GO, IPB, CHM7, HFP #### [facility] (DEFAULT) [address] [place] [address] Barbiturates Not detected Normal Cutoff: 200 ng/mL [facility] Comment on above: Order Comment: For m edical purposes only. Positive results are unconfirmed unless otherwise noted. Performed By: #### M GO, IPB, CHM7, HFP #### [facility] (DEFAULT) [address] [place] [address] Benzodiazepines Not detected Normal Cutoff: 200 ng/mL [facility] Comment on above: Order Comment: For m edical purposes only. Positive results are unconfirmed unless otherwise noted. Performed By: #### M GO, IPB, CHM7, HFP #### [facility] (DEFAULT) [address] [place] [address] Buprenorphine Not detected Normal Cutoff: 5 ng/mL [facility] Comment on above: Order Comment: For m edical purposes only. Positive results are unconfirmed unless otherwise noted. Performed By: #### M GO, IPB, CHM7, HFP #### [facility] (DEFAULT) [address] [place] [address]387 Cannabinoids Screen Ql (U) Not detected Normal Cutoff: 50 ng/mL [facility] Comment on above: Order Comment: For m edical purposes only. Positive results are unconfirmed unless otherwise noted. Performed By: #### M GO, IPB, CHM7, HFP #### [facility] (DEFAULT) [address] [place] [id number] Cocaine Not detected Normal Cutoff: 150 ng/mL [facility] Comment on above: Order Comment: For m edical purposes only. Positive results are unconfirmed unless otherwise noted. Performed By: #### M GO, IPB, CHM7, HFP #### [facility] (DEFAULT) [address] [address] Fentanyl Not detected Normal Cutoff: 1 ng/mL [facility] Comment on above: Order Comment: For m edical purposes only. Positive results are unconfirmed unless otherwise noted. Performed By: #### M GO, IPB, CHM7, HFP #### [facility] (DEFAULT) [address] [place] [address] Methadone Not detected Normal Cutoff: 300 ng/mL [facility] Comment on above: Order Comment: For m edical purposes only. Positive results are unconfirmed unless otherwise noted. Performed By: #### M GO, IPB, CHM7, HFP #### [facility] (DEFAULT) [address] [address] Opiates Not detected Normal Cutoff: 300 ng/mL [facility] Comment on above: Order Comment: For edical purposes only. Positive results are unconfirmed unless otherwise noted. Performed By: #### M GO, IPB, CHM7, HFP #### [facility] (DEFAULT) [address] [place] [address] Oxycodone Not detected Normal Cutoff: 100 ng/mL [facility] Comment on above: Order Comment: For m edical purposes only. Positive results are unconfirmed unless otherwise noted. Performed By: #### M GO, IPB, CHM7, HFP #### [facility] (DEFAULT) [address] [place] [address] VENOUS BLOOD GAS (FULL PANEL )on 11-07-2024 Base Excess -1.9 mmol/L Normal -3.0-3.0 [facility] Comment on above: Performed By: #### G SVALL #### [facility] (DEFAULT) [address] [place] [address] Carboxyhemoglobin 1.6 % High <=1.5 [facility] Comment on above: Performed By: #### G SVALL #### [facility] (DEFAULT) [address] [place] [address] Glucose [Mass/Vol] 102 mg/dL Normal Nonfastin g Glucose: 70-179 [facility] Comment on above: Performed By: #### G SVALL #### [facility] (DEFAULT) [address] [place] [address] HCO3 (Bld) [Moles/Vol] 22 mmol/L Normal 22-29 [facility] Comment on above: Performed By: #### G SVALL #### [facility] (DEFAULT) [address] [place] [address] Hematocrit (Bld) [Volume fraction] 33 % Low 34-46 [facility] Comment on above: Performed By: #### G SVALL #### [facility] (DEFAULT) [address] [place] [address] Hemoglobin (Bld) [Mass/Vol] 11.1 g/dL Low 11.4-15.2 [facility] Comment on above: Performed By: #### G SVALL #### [facility] (DEFAULT) [address] [place] [address] Ionized Calcium, Whole Blood 4.45 mg/dL Low 4.60-5.30 [facility] Comment on above: Performed By: #### G SVALL #### [facility] (DEFAULT) [address] [place] [address] Lactate, Whole Blood 0.7 mmol/L Normal 0.5-1.6 [facility] Comment on above: Performed By: #### G SVALL #### [facility] (DEFAULT) [address] [place] [address] Methemoglobin 1.1 % Normal <=1.5 [facility] Comment on above: Performed By: #### G SVALL #### [facility] (DEFAULT) [address] [place] [address] 35981 Oxygen saturation in Blood 99 % High 70-80 [facility] Comment on above: Performed By: #### G SVALL #### [facility] (DEFAULT) [address] [place] [address] Oxyhemoglobin 96 % Normal 94-98 [facility] Comment on above: Performed By: #### G SVALL #### [facility] (DEFAULT) [address] [place] [address] pCO2, Venous 29 mm Hg Low 36-52 [facility] Comment on above: Performed By: #### G SVALL #### [facility] (DEFAULT) [address] [place] [address] pH, Venous 7.48 High 7.32-7.43 [facility] Comment on above: Performed By: #### G SVALL #### [facility] (DEFAULT) [address] [place] [address] pO2, Venous 106 mm Hg Normal [facility] Comment on above: Result Comment: Veno us pO2 is not recommended for the evaluation of oxygen status, clinical correlation is recommended. Performed By: #### G SVALL #### [facility] (DEFAULT) [address] [place] [address] Potassium [Moles/Vol] 4.3 mmol/L Normal 3.5-5.0 [place] Comment on above: Performed By: #### G SVALL #### [facility] (DEFAULT) [address] [place] [address] Sodium [Moles/Vol] 128 mmol/L Low 135-145 [facility] Comment on above: Performed By: #### G SVALL #### [facility] (DEFAULT) [address] [place] [address] Specimen type Nom (Spec) Venous Normal [facility] Comment on above: Performed By: #### G SVALL #### [facility] (DEFAULT) [address] [place] [address] Vital signson 11-07-2024 Oxygen saturation in Blood 99 % High 70 - 80 % [facility] White blood cell (WBC) count Ordered By: Dallas Anand on 11-07-2024 WBC (Bld) [#/Vol] 6.7 10*3/uL 4.4-11.0 [facility] XR CHEST 1 VIEW PORTABLEon 0 [...] or early developing edema. Clinically correlate. Normal [facility] XR PELVIS 1-2 VIEWSon 2024 XR PELVIS [...] pubic symphysis. No displaced fracture evident. Normal [facility] XR Pelvis 2 Viewson 11-08-19 IMPRESSION: Osteopenia. [...] the pubic symphysis. No displaced fracture evident. [facility] Radiology Study observation (narrative) [facility] XR Pelvis 2 ViewsOrdered By: Damien Beasley on 11-07-2024 [facility] Work Phone: Absolute lymphocyte countOrd ered By: Hayden Sadler on 09-27-2024 Lymphocytes Auto (Unsp spec) [#/Vol] 0.70 10*3/uL Low 0.83-4.51 [facility] Absolute neutrophil countOrd ered By: Hayden Sadler on 09-27-2024 Neutrophils (Bld) [#/Vol] 5.1 10*3/uL 2.0-7.7 [facility] Activated partial thrombopla stin time (aPTT) in platelet poor plasma by coagulation aOrdered By: Hayden Sadler on 09-27-2024 aPTT Coag (PPP) [Time] 32.4 s 24.1-36.2 [facility] Anion gap in Serum or Plasma Ordered By: Hayden Sadler on 09-27-2024 Anion gap [Moles/Vol] 10 mmol/L 5-[address] [facility] Automated lymphocyte count a s percentage of total leukocytesOrdered By: Hayden Sadler on 09-27-2024 Lymphocytes/100 WBC Auto (Unsp spec) 10.8 % Low 19-41 [facility] BUN/creatinine ratioOrdered By: Hayden Sadler on 09-27-2024 Urea nitrogen/Creatinine [Mass ratio] 23.3 mg/mg High 10-20 [facility] Basic Metabolic Profile (BMP )on 09-27-2024 BUN/CRE 23.3 RATIO High 10-20 [facility] Comment on above: Performed By: #### L 500.2500 #### [facility] [address] [facility] [place], [address] Calcium [Mass/Vol] 9.3 mg/dL Normal 7.6-11.0 [facility] Comment on above: Performed By: #### L 500.2500 #### [facility] [address] [place], [address] Chloride [Moles/Vol] 95 mmol/L Low 98-108 [facility] Comment on above: Performed By: #### L 500.2500 #### [facility] [address] [place], [address] CO2 [Moles/Vol] 22.8 mmol/L Normal 21.0-32.0 [facility] Comment on above: Performed By: #### L 500.2500 #### [facility] [address] [place], [address] Creatinine [Mass/Vol] 0.97 mg/dL Normal 0.70-1.[address] [facility] Comment on above: Performed By: #### L 500.2500 #### [facility] [address] [place], [address] ECRCL 33.23 ml/min Low 50-250 [facility] Comment on above: Performed By: #### L 500.2500 #### [facility] [address] [place], [address] GAP 10 Normal 5-15 [facility] Comment on above: Performed By: #### L 500.2500 #### [facility] [address] [place], [address] GFR/1.73 sq M.predicted among non-blacks MDRD (S/P/Bld) [Vol rate/Area] 59 mL/min/{1.73_m2} Low >60 [facility] Comment on above: Result Comment: mL/m in/1.73m2 CKD-EPI Creatinine Equation (2020) Performed By: #### L 500.2500 #### [facility] [address] [place], [address] Glucose [Mass/Vol] 160 mg/dL High 70-99 [facility] Comment on above: Performed By: #### L 500.2500 #### [facility] [address] [place], [address] Potassium [Moles/Vol] 4.6 mmol/L Normal 3.3-5.[address] [facility] Comment on above: Performed By: #### L 500.2500 #### [facility] [address] [place], [address] Sodium [Moles/Vol] 128 mmol/L Low 133-145 [facility] Comment on above: Performed By: #### L 500.2500 #### [facility] [address] [place], [address] Urea nitrogen [Mass/Vol] 23 mg/dL High 4-19 [facility] Comment on above: Performed By: #### L 500.2500 #### [facility] [address] [place], [address] Basophil percentageOrdered B y: Hayden Doroteo on 09-27-2024 Basophils/100 WBC (Bld) 0.3 % 0-1 [facility] CBC W/Diff, Automatedon 09-05 Absolute Lymph 0.70 X10 3/uL Low 0.83-4.51 [facility] Comment on above: Performed By: #### L 500.2500 #### [facility] [address] [place], [address] Absolute Neut 5.1 X10 3/uL Normal 2.0-7.7 [facility] Comment on above: Performed By: #### L 500.2500 #### [facility] [address] [place], [address] Basophils/100 WBC (Bld) 0.3 % Normal 0-1 [facility] Comment on above: Performed By: #### L 500.2500 #### [facility] [address] [place], [address] Eosinophils/100 WBC (Bld) 1.1 % Normal 0-5 [facility] Comment on above: Performed By: #### L 500.2500 #### [facility] [address] [place], [address] Erythrocyte distribution width (RBC) [Ratio] 13.8 % Normal 11.6-14.6 [facility] Comment on above: Performed By: #### L 500.2500 #### [facility] [address] [place], [address] Hematocrit (Bld) [Volume fraction] 31.3 % Low 37-47 [facility] Comment on above: Performed By: #### L 500.2500 #### [facility] [address] [place], [address] Hemoglobin (Bld) [Mass/Vol] 11.0 g/dL Low 12.0-15.0 [facility] Comment on above: Performed By: #### L 500.2500 #### [facility] [address] [place], [address] IG% 0.800 Normal 0.0-0.9 [facility] Comment on above: Result Comment: IG% - Immature Granulocytes (promyelocytes, myelocytes and metamyelocytes) > 1% indicates that a LEFT SHIFT is Present. Performed By: #### L 500.2500 #### [facility] [address] [place], [address] Lymphocytes/100 WBC (Bld) 10.8 % Low 19-41 [facility] Comment on above: Performed By: #### L 500.2500 #### [facility] [address] [place], [address] MCH (RBC) [Entitic mass] 32.4 pg High 27.0-32.0 [facility] Comment on above: Performed By: #### L 500.2500 #### [facility] [address] [place], [address] MCHC (RBC) [Mass/Vol] 35.1 g/dL Normal 32-[address] [facility] Comment on above: Performed By: #### L 500.2500 #### [facility] [address] [place], [address] MCV (RBC) [Entitic vol] 92.3 fL Normal 81-99 [facility] Comment on above: Performed By: #### L 500.2500 #### [facility] [address] [place], [address] Monocytes/100 WBC (Bld) 8.3 % Normal 0-10 [facility] Comment on above: Performed By: #### L 500.2500 #### [facility] [address] [place], [address] Neutrophils/100 WBC (Bld) 78.7 % High 47-70 [facility] Comment on above: Performed By: #### L 500.2500 #### [facility] [address] [place], [address] Nucleated RBC (Bld) [#/Vol] 0 10*3/uL Normal 0-5 [facility] Comment on above: Performed By: #### L 500.2500 #### [facility] [address] [place], [address] Platelet mean volume (Bld) [Entitic vol] 9.9 fL Normal 6.2-12.0 [facility] Comment on above: Performed By: #### L 500.2500 #### [facility] [address] [place], [address] Platelets (Bld) [#/Vol] 219 10*3/uL Normal 150-450 [facility] Comment on above: Performed By: #### L 500.2500 #### [facility] [address] [place], [address] RBC (Bld) [#/Vol] 3.39 10*6/uL Low 4.2-5.4 [facility] Comment on above: Performed By: #### L 500.2500 #### [facility] [address] [place], [address] RDW SD 46.5 fl High 35.1-43.9 [facility] Comment on above: Performed By: #### L 500.2500 #### [facility] [address] [place], [address] WBC (Bld) [#/Vol] 6.5 10*3/uL Normal 4.4-11.0 [facility] Comment on above: Performed By: #### L 500.2500 #### [facility] [address] [place], [address] Carbon dioxide, total [Moles /volume] in Central venous bloodOrdered By: Hayden Sadler on 09-27-2024 CO2 [Moles/Vol] 22.8 mmol/L 21.0-32.0 [facility] Chest PA and Lateralon 09-27 Chest PA and Lateral [facility] [address] [place] [address] Chest PA and Lateral MR#: [id number] Acct: [id number] Name: SARAH MCGUIRE Rep #: [id number] : 1945 F 78 From: Eugenio gomez MD PCP: Dr. Monika Venegas MD Status: REG ER Study: Chest PA and Lateral Date of Exam: 09/27/24 Exam# [id number] Ordering Dr: Hayden Sadler DO PROCEDURE: CHEST [...] No acute abnormality is seen. Reading Location: [place] [address] CC: Dr. Monika Venegas MD; Dr. Hayden Sadler DO Electric Operator: Signed Normal [facility] Chloride assayOrdered By: Delfin Sadler on 09-27-2024 Chloride [Moles/Vol] 95 mmol/L Low 98-108 [facility] Emergency Department Summary on 09-27-2024 Emergency Department Summary [facility] Medical Records Department [address] [place] [address] Emergency Department Summary 09/27/24 MR#: [id number] Acct: [id number] Name: SARAH MCGUIRE Rep #: [id number] : 1945 78 From: Hayden Sadler DO [...] her surgery and from the ride from [facility] to [place] and December 2022 she noted that she has had some numbness and tingling periodically in her left arm but today this felt different therefore her daughter brought her here for further evaluation management. She states that she was sitting eating breakfast when this occurred. Patient states that she is anxious about her symptoms. She states that she is on Eliquis. [facility] Medical History Mitral valve stenosis, non-rheumatic [...] follow commands knew that she was at [facility] year is 2024 Skin: Warm, dry, intact Const Vital Signs: 09/27/24 09:20 09/27/24 09:23 09/27/24 09:31 Temperature 98 F (more content not included)... Normal [facility] Eosinophil percentageOrdered By: Hayden Sadler on 09-27-2024 Eosinophils/100 WBC (Bld) 1.1 % 0-5 [facility] Erythrocyte distribution wid th (RBC) [Ratio]Ordered By: Hayden Sadler on 09-27-2024 Erythrocyte distribution width (RBC) [Entitic vol] 46.5 fL High 35.1-43.9 [facility] Erythrocyte distribution wid th ratioOrdered By: Hayden Sadler on 09-27-2024 Erythrocyte distribution width (RBC) [Ratio] 13.8 % 11.6-14.6 [facility] Erythrocyte distribution wid th standard deviationOrdered By: Hayden Sadler on 09-27-2024 Erythrocyte distribution width (RBC) [Ratio] 46.5 fl High 35.1-43.9 [facility] Estimation of creatinine guido aranceOrdered By: Hayden Sadler on 09-27-2024 Estimated Creatinine Clearance Calc 33.23 ml/min Low 50-250 [facility] GFR/1.73 sq M.predicted maicol g non-blacks MDRD (S/P/Bld) [Vol rate/Area]Ordered By: Hayden Sadler on 09-27-2024 Estimated GFR (MDRD) Non-Af Amer 59 Low >60 [facility] Comment on above: mL/min/1.73m2 CKD-EP I Creatinine Equation (2020) Glomerular filtration rate ( GFR) estimation/1.73 sq m using serum, plasma, or whole bOrdered By: Hayden Sadler on 09-27-2024 GFR/1.73 sq M.predicted among non-blacks MDRD (S/P/Bld) [Vol rate/Area] 59 mL/min/{1.73_m2} Low >60 [facility] Comment on above: mL/min/1.73m2 CKD-EP I Creatinine Equation (2020) Hematocrit Auto (Bld) [Volum e fraction]Ordered By: Hayden Sadler on 09-27-2024 Hematocrit (Bld) [Volume fraction] 31.3 % Low 37-47 [facility] Hemoglobin measurementOrdere d By: Hayden Sadler on 09-27-2024 Hemoglobin (Bld) [Mass/Vol] 11.0 g/dL Low 12.0-15.0 [facility] Immature granulocytes/100 WB C Auto (Bld)Ordered By: Hayden Sadler on 09-27-2024 Immature granulocytes/100 WBC (Bld) 0.800 % 0.0-0.9 [facility] Comment on above: IG% - Immature Granu locytes (promyelocytes, myelocytes and metamyelocytes) > 1% indicates that a LEFT SHIFT is Present. International normalized rat io (INR) calculationOrdered By: Hayden Sadler on 09-27-2024 INR Coag (Bld) [Relative time] 1.1 {INR} [facility] L499.0042on 09-27-2024 Trop T High Sen 14 ng/L Normal <=14 [facility] Comment on above: Performed By: #### L 509.6001 #### [facility] [address] [place], [address] L499.0043on 09-27-2024 Trop T High Sen Normal <=14 [facility] Comment on above: Result Comment: CANC ELLATION ORDER Performed By: #### L 499.0043 #### [facility] [address] [place], [address] L501.4021on 09-27-2024 Trop T High Sen 16 ng/L High <=14 [facility] Comment on above: Performed By: #### L 500.2500 #### [facility] [address] [place], [address] Lymphocytes Auto (Unsp spec) [#/Vol]Ordered By: Hayden Sadler on 09-27-2024 Lymphocytes (Bld) [#/Vol] 0.70 10*3/uL Low 0.83-4.51 [facility] Lymphocytes/100 WBC Auto (Un sp spec)Ordered By: Hayden Sadler on 09-27-2024 Lymphocytes/100 WBC (Bld) 10.8 % Low 19-41 [facility] MCV (mean corpuscular volume ) determinationOrdered By: Hayden Sadler on 09-27-2024 MCV (RBC) [Entitic vol] 92.3 fL 81-99 [facility] Mean corpuscular hemoglobin (MCH) determinationOrdered By: Hayden Sadler on 09-27-2024 MCH (RBC) [Entitic mass] 32.4 pg High 27.0-32.0 [facility] Mean corpuscular hemoglobin concentration (MCHC) determinationOrdered By: Hayden Sadler on 09-27-2024 MCHC (RBC) [Mass/Vol] 35.1 g/dL 32-[address] [facility] Mean platelet volume determi nationOrdered By: Hayden Sadler on 09-27-2024 Platelet mean volume (Bld) [Entitic vol] 9.9 fL 6.2-12.0 [facility] Monocyte percentageOrdered B y: Hayden Sadler on 09-27-2024 Monocytes/100 WBC (Bld) 8.3 % 0-10 [facility] Neutrophil percentageOrdered By: Hayden Sadler on 09-27-2024 Neutrophils/100 WBC (Bld) 78.7 % High 47-70 [facility] Nucleated red blood cell per centageOrdered By: Hayden Sadler on 09-27-2024 Nucleated RBC/100 WBC (Bld) [Ratio] 0 % 0-5 [facility] Partial Thromboplast Timeon 09-27-2024 aPTT Coag (Bld) [Time] 32.4 s Normal 24.1-36.2 [facility] Comment on above: Performed By: #### L 499.0043 #### [facility] [address] [place], [place], [address] Platelet countOrdered By: Delfin Sadler on 09-27-2024 Platelets (Bld) [#/Vol] 219 10*3/uL 150-450 [facility] Potassium (Unsp spec) [Mass/ Vol]Ordered By: Hayden Sadler on 09-27-2024 Potassium [Moles/Vol] 4.6 mmol/L 3.3-5.[address] [facility] Potassium measurement (mass/ volume)Ordered By: Hayden Sadler on 09-27-2024 Potassium (Unsp spec) [Mass/Vol] 4.6 mmol/L 3.3-5.1 [facility] Prothrombin Time w/INRon INR Coag (PPP) [Relative time] 1.1 {INR} Normal [facility] Comment on above: Performed By: #### L 499.0043 #### [facility] [address] [place], [address] PT Coag (PPP) [Time] 14.8 s Normal 11.7-14.9 [facility] Comment on above: Performed By: #### L 499.0043 #### [facility] [address] [place], [address] Prothrombin timeOrdered By: Hayden Sadler on 09-27-2024 PT Coag (PPP) [Time] 14.8 s 11.7-14.9 [facility] RBC Auto (Bld) [#/Vol]Ordere d By: Hayden Sadler on 09-27-2024 RBC (Bld) [#/Vol] 3.39 10*6/uL Low 4.2-5.4 [facility] Serum creatinine measurement (mass/volume)Ordered By: Hayden Sadler on 09-27-2024 Creatinine [Mass/Vol] 0.97 mg/dL 0.70-1.[address] [facility] Serum glucose measurement (m ass/volume)Ordered By: Hayden Sadler on 09-27-2024 Glucose [Mass/Vol] 160 mg/dL High 70-99 [facility] Serum or plasma calcium ena urement (mass/volume)Ordered By: Hayden Sadler on 09-27-2024 Calcium [Mass/Vol] 9.3 mg/dL 7.6-11.0 [facility] Serum or plasma urea nitroge n measurement (mass/volume)Ordered By: Hayden Sadler on 09-27-2024 Urea nitrogen [Mass/Vol] 23 mg/dL High 4-19 [facility] Sodium levelOrdered By: Naomi Sadler on 09-27-2024 Sodium [Moles/Vol] 128 mmol/L Low 133-145 [facility] Troponin T.cardiac High sens itivity method [Mass/Vol]Ordered By: Hayden Sadler on 09-27-2024 Troponin T High Sensitivity 16 ng/L High <14 [facility] Troponin T High Sensitivity 2 Hour 14 ng/L <14 [facility] Troponin T.cardiac [Mass/vol ume] in Serum or Plasma by High sensitivity methodOrdered By: Hayden Sadler on 09-27-2024 Troponin T.cardiac High sensitivity method [Mass/Vol] 16 ng/L High <14 [facility] Troponin T.cardiac High sensitivity method [Mass/Vol] 14 ng/L <14 [facility] White blood cell (WBC) count Ordered By: Hayden Sadler on 09-27-2024 WBC (Bld) [#/Vol] 6.5 10*3/uL 4.4-11.0 [facility] aPTT Coag (PPP) [Time]Ordere d By: Hayden Sadler on 09-27-2024 aPTT Coag (Bld) [Time] 32.4 s 24.1-36.2 [facility] Basic Metabolic Profile (BMP )on 07-24-2024 BUN/CRE 26.3 RATIO High 10-20 [facility] Comment on above: Performed By: #### L 509.6001 #### [facility] [address] [place], [address] CA,Total 9.4 mg/dL Normal 8.5-10.1 [facility] Comment on above: Performed By: #### L 509.6001 #### [facility] [address] [place], [address] Chloride [Moles/Vol] 97 mmol/L Low 98-107 [facility] Comment on above: Performed By: #### L 509.6001 #### [facility] [address] [place], [address] CO2 [Moles/Vol] 24.0 mmol/L Normal 21.0-32.0 [facility] Comment on above: Performed By: #### L 509.6001 #### [facility] [address] [place], [address] Creatinine [Mass/Vol] 0.80 mg/dL Normal 0.55-1.[address] [facility] Comment on above: Result Comment: The validity of the calculated GFR GFRAA in patients over 70 years has not been determined. Clinical correlation is essential. Performed By: #### L 509.6001 #### [facility] [address] [place], [address] EST GFR - AA 89 mL/min Normal >60 [facility] Comment on above: Result Comment: Afri can Montserratian GFR Calc Performed By: #### L 509.6001 #### [facility] [address] [place], [address] GAP 8 Normal 5-15 [facility] Comment on above: Performed By: #### L 509.6001 #### [facility] [address] [place], [address] GFR/1.73 sq M.predicted among non-blacks MDRD (S/P/Bld) [Vol rate/Area] 74 mL/min/{1.73_m2} Normal >60 [facility] Comment on above: Result Comment: Non- GFR Calc Performed By: #### L 509.6001 #### [facility] [address] [place], [address] Glucose [Mass/Vol] 120 mg/dL High 74-106 [facility] Comment on above: Result Comment: Fast ing Glucose result from 100 to 125 mg/dL suggests IMPAIRED HOMEOSTASIS per A.D.A. criteria. Performed By: #### L 509.6001 #### [facility] [address] [place], [address] Potassium [Moles/Vol] 4.5 mmol/L Normal 3.5-5.[address] [facility] Comment on above: Performed By: #### L 509.6001 #### [facility] [address] [place], [address] Sodium [Moles/Vol] 129 mmol/L Low 136-145 [facility] Comment on above: Performed By: #### L 509.6001 #### [facility] [address] [place], [address] Urea nitrogen [Mass/Vol] 21 mg/dL High 7-18 [facility] Comment on above: Performed By: #### L 509.6001 #### [facility] [address] [place], [address] Blood urea nitrogen (BUN)/cr eatinine ratioOrdered By: Nati Hudson on 07-24-2024 Urea nitrogen/Creatinine [Mass ratio] 26.3 mg/mg High 10-20 [facility] Carbon dioxide measurementOr dered By: Nati Hudson on 07-24-2024 CO2 [Moles/Vol] 24.0 mmol/L 21.0-32.0 [facility] Chloride measurementOrdered By: Nati Hudson on 07-24-2024 Chloride [Moles/Vol] 97 mmol/L Low 98-107 [facility] Estimated glomerular filtrat ion rate (GFR) AmericanOrdered By: Nati Hudson on 07-24-2024 Estimated GFR (MDRD) Amer 89 mL/min >60 [facility] Comment on above: GFR Calc Glomerular filtration rate ( GFR) estimationOrdered By: aNti Hudson on 07-24-2024 Estimated GFR (MDRD) Non-Af Amer 74 mL/min >60 [facility] Comment on above: Non- GFR Calc GFR/1.73 sq M.predicted among non-blacks MDRD (S/P/Bld) [Vol rate/Area] 74 mL/min/{1.73_m2} >60 [facility] Comment on above: Non- GFR Calc Glucose measurementOrdered B y: Nati Hudson on 07-24-2024 Glucose [Mass/Vol] 120 mg/dL High 74-106 [facility] Comment on above: Fasting Glucose resu lt from 100 to 125 mg/dL suggests IMPAIRED HOMEOSTASIS per A.D.A. criteria. Potassium measurementOrdered By: Nati Hudson on 07-24-2024 Potassium [Moles/Vol] 4.5 mmol/L 3.5-5.[address] [facility] Serum anion gap measurementO rdered By: Nati Hudson on 07-24-2024 Anion gap [Moles/Vol] 8 mmol/L 5-[address] [facility] Serum or plasma calcium ena urement (mass/volume)Ordered By: Nati Hudson on 07-24-2024 Calcium [Mass/Vol] 9.4 mg/dL 8.5-10.1 [facility] Serum or plasma creatinine m easurement (mass/volume)Ordered By: Nati Hudson on 07-24-2024 Creatinine [Mass/Vol] 0.80 mg/dL 0.55-1.[address] [facility] Comment on above: The validity of the calculated GFR & GFRAA in patients over 70 years has not been determined. Clinical correlation is essential. Serum or plasma urea nitroge n measurement (mass/volume)Ordered By: Nati Hudson on 07-24-2024 Urea nitrogen [Mass/Vol] 21 mg/dL High 7-18 [facility] Sodium levelOrdered By: Luiz Hudson on 07-24-2024 Sodium [Moles/Vol] 129 mmol/L Low 136-145 [facility] MRI BRAIN WITH PERFUSIONon 0 07-16-2024 [...] on the March 14, 2024 PET/CT. Normal [facility] Basic Metabolic Profile (BMP )on 06-19-2024 BUN/CRE 25.9 RATIO High 10-20 [facility] Comment on above: Performed By: #### L 500.2500 #### [facility] [address] [place], [address] CA,Total 9.3 mg/dL Normal 8.5-10.1 [facility] Comment on above: Performed By: #### L 500.2500 #### [facility] [address] [place], [address] Chloride [Moles/Vol] 98 mmol/L Normal 98-107 [facility] Comment on above: Performed By: #### L 500.2500 #### [facility] [address] [place], [address] CO2 [Moles/Vol] 24.0 mmol/L Normal 21.0-32.0 [facility] Comment on above: Performed By: #### L 500.2500 #### [facility] [address] [place], [address] Creatinine [Mass/Vol] 0.89 mg/dL Normal 0.55-1.[address] [facility] Comment on above: Result Comment: The validity of the calculated GFR GFRAA in patients over 70 years has not been determined. Clinical correlation is essential. Performed By: #### L 500.2500 #### [facility] [address] [place], [address] EST GFR - AA 79 mL/min Normal >60 [facility] Comment on above: Result Comment: Afri can [place]serratian GFR Calc Performed By: #### L 500.2500 #### [facility] [address] [place], [address] GAP 6 Normal 5-15 [facility] Comment on above: Performed By: #### L 500.2500 #### [facility] [address] [place], [address] GFR/1.73 sq M.predicted among non-blacks MDRD (S/P/Bld) [Vol rate/Area] 65 mL/min/{1.73_m2} Normal >60 [facility] Comment on above: Result Comment: Non- GFR Calc Performed By: #### L 500.2500 #### [facility] [address] [place], [address] Glucose [Mass/Vol] 121 mg/dL High 74-106 [facility] Comment on above: Result Comment: Fast ing Glucose result from 100 to 125 mg/dL suggests IMPAIRED HOMEOSTASIS per A.D.A. criteria. Performed By: #### L 500.2500 #### [facility] [address] [place], [address] Potassium [Moles/Vol] 4.4 mmol/L Normal 3.5-5.[address] [facility] Comment on above: Performed By: #### L 500.2500 #### [facility] [address] [place], [address] Sodium [Moles/Vol] 129 mmol/L Low 136-145 [facility] Comment on above: Performed By: #### L 500.2500 #### [facility] [address] [place], [address] Urea nitrogen [Mass/Vol] 23 mg/dL High 7-18 [facility] Comment on above: Performed By: #### L 500.2500 #### [facility] [address] [place], [address] Blood urea nitrogen (BUN)/cr eatinine ratioOrdered By: Nati Hudson on 06-19-2024 Urea nitrogen/Creatinine [Mass ratio] 25.9 mg/mg High 10-20 [facility] Carbon dioxide measurementOr dered By: Nati Hudson on 06-19-2024 CO2 [Moles/Vol] 24.0 mmol/L 21.0-32.0 [facility] Chloride measurementOrdered By: Nati Hudson on 06-19-2024 Chloride [Moles/Vol] 98 mmol/L 98-107 [facility] Direct serum free thyroxine (FT4) measurementOrdered By: Lolly Alejandra on 06-19-2024 Free T4 [Mass/Vol] 1.60 ng/dL High 0.76-1.46 [facility] Estimated glomerular filtrat ion rate (GFR) AmericanOrdered By: Nati Hudson on 06-19-2024 Estimated GFR (MDRD) Amer 79 mL/min >60 [facility] Comment on above: GFR Calc Free T3on 06-19-2024 Free T3 [Mass/Vol] 1.8 pg/mL Low 2.18-3.98 [facility] Comment on above: Performed By: #### L 506.0400, L501.9520, L501.10303 #### [facility] [address] [place], [place], [address] Free C6Ghwiria By: Lolly Alejandra on 06-19-2024 Free Triiodothyronine (T3) pg/dL 1.8 pg/mL Low 2.18-3.98 [facility] Glomerular filtration rate ( GFR) estimationOrdered By: Nati Hudson on 06-19-2024 Estimated GFR (MDRD) Non-Af Amer 65 mL/min >60 [facility] Comment on above: Non- GFR Calc Glucose measurementOrdered B y: Nati Hudson on 06-19-2024 Glucose [Mass/Vol] 121 mg/dL High 74-106 [facility] Comment on above: Fasting Glucose resu lt from 100 to 125 mg/dL suggests IMPAIRED HOMEOSTASIS per A.D.A. criteria. Osmolality (U) [Osmolality]O rdered By: Nati Hudson on 06-19-2024 Urine Osmolality 657 mOsm/KG >50 [facility] Comment on above: Normal Urine Referen ce Ranges Random: 50 - 1200 mOsm/kg H20 depending on fluid intake Random: >850 mOsm/kg after 12 hour fluid restriction 24 hour: ~300 - 900 mOsm/kg H2O Osmolality, Serumon 06-19-19 25 OSMOLALITY,SER 281 mOsm/KG Normal 280-301 [facility] Comment on above: Performed By: #### L 500.2500 #### [facility] [address] [place], [place], [address] Osmolality, Urineon 06-19-19 25 OSMOLALITY,UR 657 mOsm/KG Normal [facility] Comment on above: Result Comment: Normal Urine Reference Ranges Random: 50 - 1200 mOsm/kg H20 depending on fluid intake Random: >850 mOsm/kg after 12 hour fluid restriction 24 hour: 300 - 900 mOsm/kg H2O Performed By: #### L 500.2500 #### [facility] [address] [place], [place], [address] Osmolality, serumOrdered By: Nati Hudson on 06-19-2024 Serum Osmolality 281 mOsm/KG 280-301 [facility] Potassium measurementOrdered By: Nati Hudson on 06-19-2024 Potassium [Moles/Vol] 4.4 mmol/L 3.5-5.[address] [facility] Serum anion gap measurementO rdered By: Nati Hudson on 06-19-2024 Anion gap [Moles/Vol] 6 mmol/L 5-[address] [facility] Serum or plasma calcium ena urement (mass/volume)Ordered By: Nati Hudson on 06-19-2024 Calcium [Mass/Vol] 9.3 mg/dL 8.5-10.1 [facility] Serum or plasma creatinine m easurement (mass/volume)Ordered By: Nati Hudson on 06-19-2024 Creatinine [Mass/Vol] 0.89 mg/dL 0.55-1.[address] [facility] Comment on above: The validity of the calculated GFR & GFRAA in patients over 70 years has not been determined. Clinical correlation is essential. Serum or plasma urea nitroge n measurement (mass/volume)Ordered By: Nati Hudson on 06-19-2024 Urea nitrogen [Mass/Vol] 23 mg/dL High 7-18 [facility] Sodium levelOrdered By: Luiz Hudson on 06-19-2024 Sodium [Moles/Vol] 129 mmol/L Low 136-145 [facility] Sodium urOrdered By: Ana Cristina Hudson on 06-19-2024 Sodium (U) [Moles/Vol] 75 mmol/L Not Establ. [facility] T4 Free Directon 06-19-2024 T4 FREE DIRECT 1.60 ng/dL High 0.76-1.46 [facility] Comment on above: Performed By: #### L 506.0400, L501.9520, L501.16523 #### [facility] [address] [place], [address] TSH QnOrdered By: Lolly Bernabe on 06-19-2024 Thyroid Stimulating Hormone (TSH) 1.730 uIU/mL 0.358-3.740 [facility] Thyroid Stim Hormone (TSH)on 06-19-2024 TSH 1.730 uIU/mL Normal 0.358-3.740 [facility] Comment on above: Performed By: #### L 506.0400, L501.9520, L501.00371 #### [facility] [address] [place], [address] Urine Sodiumon 06-19-2024 Sodium (U) [Moles/Vol] 75 mmol/L Normal Not Establ. [facility] Comment on above: Performed By: #### L 500.2500 #### [facility] [address] [place], [address] AST(SGOT)on 04-17-2024 AST [Catalytic activity/Vol] 24 U/L Normal 15-37 [facility] Comment on above: Order Comment: Order Date: 03/20/24Order Info: 666-06 - BMPOrder Info: - LIPIDOrder Date: 11/18/23Order Info: 1920-01 - ASTOrder Info: 1741-11 - ALT Performed By: #### L 509.6001 #### [facility] [address] [place], [address] Alanine Aminotransferas (SGP T)on 04-17-2024 ALT [Catalytic activity/Vol] 46 U/L Normal 13-56 [facility] Comment on above: Order Comment: Order Date: 03/20/24Order Info: 666-06 - BMPOrder Info: - LIPIDOrder Date: 11/18/23Order Info: 1920-01 - ASTOrder Info: 1741-11 - ALT Performed By: #### L 509.6001 #### [facility] [address] [place], [address] Basic Metabolic Profile (BMP )on 04-17-2024 BUN/CRE 17.6 RATIO Normal 10-20 [facility] Comment on above: Order Comment: Order Date: 03/20/24Order Info: 666-06 - BMPOrder Info: - LIPIDOrder Date: 11/18/23Order Info: 1920-01 - ASTOrder Info: 1741-11 - ALT Performed By: #### L 499.0043 #### [facility] [address] [place], [address] CA,Total 9.1 mg/dL Normal 8.5-10.1 [facility] Comment on above: Order Comment: Order Date: 03/20/24Order Info: 666-06 - BMPOrder Info: - LIPIDOrder Date: 11/18/23Order Info: 1920-01 - ASTOrder Info: 1741-11 - ALT Performed By: #### L 499.0043 #### [facility] [address] [place], [address] Chloride [Moles/Vol] 99 mmol/L Normal 98-107 [facility] Comment on above: Order Comment: Order Date: 03/20/24Order Info: 666-06 - BMPOrder Info: - LIPIDOrder Date: 11/18/23Order Info: 1920-01 - ASTOrder Info: 1741-11 - ALT Performed By: #### L 499.0043 #### [facility] [address] [place], [address] CO2 [Moles/Vol] 24.0 mmol/L Normal 21.0-32.0 [facility] Comment on above: Order Comment: Order Date: 03/20/24Order Info: 666-06 - BMPOrder Info: - LIPIDOrder Date: 11/18/23Order Info: 1920-01 - ASTOrder Info: 1741-11 - ALT Performed By: #### L 499.0043 #### [facility] [address] [place], [address] Creatinine [Mass/Vol] 0.91 mg/dL Normal 0.55-1.[address] [facility] Comment on above: Order Comment: Order Date: 03/20/24Order Info: 666-06 - BMPOrder Info: - LIPIDOrder Date: 11/18/23Order Info: 1920-01 - ASTOrder Info: 1741-11 - ALT Result Comment: The validity of the calculated GFR GFRAA in patients over 70 years has not been determined. Clinical correlation is essential. Performed By: #### L 499.0043 #### [facility] [address] [place], [address] EST GFR - AA 77 mL/min Normal >60 [facility] Comment on above: Order Comment: Order Date: 03/20/24Order Info: 666-06 - BMPOrder Info: - LIPIDOrder Date: 11/18/23Order Info: 1920-01 - ASTOrder Info: 1741-11 - ALT Result Comment: Afri can [place]err[place]ian GFR Calc Performed By: #### L 499.0043 #### [facility] [address] [place], [address] GAP 7 Normal 5-15 [facility] Comment on above: Order Comment: Order Date: 03/20/24Order Info: 666-06 - BMPOrder Info: - LIPIDOrder Date: 11/18/23Order Info: 1920-01 - ASTOrder Info: 1741-11 - ALT Performed By: #### L 499.0043 #### [facility] [address] [place], [address] GFR/1.73 sq M.predicted among non-blacks MDRD (S/P/Bld) [Vol rate/Area] 63 mL/min/{1.73_m2} Normal >60 [facility] Comment on above: Order Comment: Order Date: 03/20/24Order Info: 666-06 - BMPOrder Info: - LIPIDOrder Date: 11/18/23Order Info: 1920-01 - ASTOrder Info: 1741-11 - ALT Result Comment: Non- GFR Calc Performed By: #### L 499.0043 #### [facility] [address] [place], [address] Glucose [Mass/Vol] 121 mg/dL High 74-106 [facility] Comment on above: Order Comment: Order Date: 03/20/24Order Info: 666-06 - BMPOrder Info: - LIPIDOrder Date: 11/18/23Order Info: 1920-01 - ASTOrder Info: 1741-11 - ALT Result Comment: Fast ing Glucose result from 100 to 125 mg/dL suggests IMPAIRED HOMEOSTASIS per A.D.A. criteria. Performed By: #### L 499.0043 #### [facility] [address] [place], [address] Potassium [Moles/Vol] 4.6 mmol/L Normal 3.5-5.[address] [facility] Comment on above: Order Comment: Order Date: 03/20/24Order Info: 666-06 - BMPOrder Info: - LIPIDOrder Date: 11/18/23Order Info: 1920-01 - ASTOrder Info: 1741-11 - ALT Performed By: #### L 499.0043 #### [facility] [address] [place], [address] Sodium [Moles/Vol] 130 mmol/L Low 136-145 [facility] Comment on above: Order Comment: Order Date: 03/20/24Order Info: 666-06 - BMPOrder Info: - LIPIDOrder Date: 11/18/23Order Info: 1920-01 - ASTOrder Info: 1741-11 - ALT Performed By: #### L 499.0043 #### [facility] [address] [place], [address] Urea nitrogen [Mass/Vol] 16 mg/dL Normal 7-18 [facility] Comment on above: Order Comment: Order Date: 03/20/24Order Info: 666-06 - BMPOrder Info: - LIPIDOrder Date: 11/18/23Order Info: 1920-01 - ASTOrder Info: 1741-11 - ALT Performed By: #### L 499.0043 #### [facility] [address] [place], [address] Lipid Profileon 04-17-2024 Cholesterol [Mass/Vol] 160 mg/dL Normal 200 [facility] Comment on above: Order Comment: Order Date: 03/20/24Order Info: 666-06 - BMPOrder Info: - LIPIDOrder Date: 11/18/23Order Info: 1920-01 - ASTOrder Info: 1741-11 - ALT Result Comment: <200 mg/dL Desirable 200-240 mg/dL Borderline >240 mg/dL High Risk Performed By: #### L 509.6001 #### [facility] [address] [place], [address] Cholesterol in HDL [Mass/Vol] 73 mg/dL Normal [facility] Comment on above: Order Comment: Order Date: 03/20/24Order Info: 666-06 - BMPOrder Info: - LIPIDOrder Date: 11/18/23Order Info: 1920-01 - ASTOrder Info: 1741-11 - ALT Result Comment: The drugs N-Acetylcysteine and Metamizole may falsely depress this assay. Reference Range HDL <40 mg/dL Low HDL Cholesterol HDL >or= 60 mg/dL High HDL Cholesterol Performed By: #### L 509.6001 #### [facility] [address] [place], [address] Cholesterol in LDL [Mass/Vol] 71 mg/dL Normal 0-130 [facility] Comment on above: Order Comment: Order Date: 03/20/24Order Info: 666-06 - BMPOrder Info: - LIPIDOrder Date: 11/18/23Order Info: 1920-01 - ASTOrder Info: 1741-11 - ALT Performed By: #### L 509.6001 #### [facility] [address] [place], [address] Cholesterol in VLDL [Mass/Vol] 16 mg/dL Normal 5-40 [facility] Comment on above: Order Comment: Order Date: 03/20/24Order Info: 666-06 - BMPOrder Info: - LIPIDOrder Date: 11/18/23Order Info: 1920-01 - ASTOrder Info: 1741-11 - ALT Performed By: #### L 509.6001 #### [facility] [address] [place], [address] Triglyceride [Mass/Vol] 78 mg/dL Normal [facility] Comment on above: Order Comment: Order Date: 03/20/24Order Info: 0667-1 - BMPOrder Info: 25667-2 - LIPIDOrder Date: 11/18/23Order Info: [id number] - ASTOrder Info: 1742-6 - ALT Result Comment: The drugs N-Acetylcysteine and Metamizole may falsely depress this assay. Serum Triglycerides Reference Interval Normal <150 mg/dL Borderline high 150 - 199 mg/dL High 200 - 499 mg/dL Very High > or = 500 mg/dL Performed By: #### L 509.6001 #### [facility] [address] [place], [address] Protein+Creatinine Ratio,Uri neon 04-17-2024 PROT:CRE RATIO 301 mg/g CRE High 0-200 [facility] Comment on above: Performed By: #### L 500.2500 #### [facility] [address] [place], [address] Protein (U) [Mass/Vol] 20.1 mg/dL High <11.9 [facility] Comment on above: Performed By: #### L 500.2500 #### [facility] [address] [place], [address] UR CREAT 66.70 mg/dL Normal NO RANGE EST. [facility] Comment on above: Performed By: #### L 500.2500 #### [facility] [address] [place], [address] MRI BRAIN WITH PERFUSIONon 1 MRI BRAIN [...] have reviewed and approved this report. Normal [facility] PT Skull base to mid-thighon 03-14-2024 IMPRESSION: [...] although residual/recurrent disease cannot be entirely excluded. [facility] Radiology Study observation (narrative) [facility] PT Skull base to mid-thighOr dered By: Anthony Ricci on 03-14-2024 [facility] Work Phone: PT D/C Summary (1)on 024 PT D/C Summary (1) [facility] [address] [place] [address]. 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 Thank you for the referral of this patient. Sincerely, Corey Zhao, DPT, OCS, CSCS Balance/Gait/Functional tests Balance/Special Test Scores Lower Extremity Functional Score: 29 TUG Test Time Seconds: 31 Tug Test: >30sec.=impaired mobility 30 Second Chair Rise Test Seconds: 15 Improvement % Improvement: 25 03/09/24 1623 CC: Dr. Monika Venegas MD EBG Signed Normal [facility] OT D/C Summaryon 03-01-2024 OT D/C Summary [facility] [place] [address] [place] [address] / REHABILITATION SERVICES DISCHARGE SUMMARY MR#: [id number] Acct: [id number] Name: SARAH MCGUIRE Rep #: [id number] : 1945 78 From: Lauryn Tubbs Referring [...] 02/22:14.1# GOAL MET pt will improve L test grader strength to 35 pounds or more in order to maximize I in light IADL tasks as well as cross stitching 01/10/24: 25# 02/22: 30# 03/01: 32# NOT MET pt will improve R test grader strength to 30 pounds or more in [...] assistance in order to return to PLOF CO GOAL MET Plan Plan: AROM/AAROM/PROM strengthening coordination D/C Information Discharge Comments: pt seen for dx of CVA. progress made in fine motor control manipulation skills as well as overall UB strength. pt to continue exercises and manipulation tasks at home for ongoing progress. d/c sentence: If there are questions or concerns regarding this patient's occupational therapy, please fell free to call me at [phone]. Thank you for the referral of this patient. Sincerely, Lauryn Tubbs 03/01/24 7937 CC: Dr. Monika Venegas MD CK Signed Normal [facility] OT D/C of Non Returning Pton 03-01-2024 OT D/C of Non Returning Pt [facility] [address] [place] [address] / REHABILITATION SERVICES DISCHARGE SUMMARY MR#: [id number] Acct: [id number] Name: SARAH MCGUIRE Rep #: [id number] : 1945 78 From: Lauryn Tubbs Referring [...] CVA. pt seen for improved UB strength [facility] ed in adaptive equipment. pt has progressed [...] Dr. Monika Venegas MD CK Signed Normal [facility] Comprehensive Metabolic Prof ilon 02-24-2024 Albumin [Mass/Vol] 3.9 g/dL Normal 3.2-5.0 [facility] Comment on above: Order Comment: Order Date: 01/17/24Order Info: 0786-1 - CMP Performed By: #### L 500.2500 #### [facility] [address] [place], [address] Albumin/Globulin [Mass ratio] 1.3 {ratio} Normal 0.9-2.4 [facility] Comment on above: Order Comment: Order Date: 01/17/24Order Info: 0786-1 - CMP Performed By: #### L 500.2500 #### [facility] [address] [place], [address] ALK P 81 U/L Normal 45-117 [facility] Comment on above: Order Comment: Order Date: 01/17/24Order Info: 0786-1 - CMP Performed By: #### L 500.2500 #### [facility] [address] [place], [address] ALT [Catalytic activity/Vol] 33 U/L Normal 13-56 [facility] Comment on above: Order Comment: Order Date: 01/17/24Order Info: 0786-1 - CMP Performed By: #### L 500.2500 #### [facility] [address] [place], [address] AST [Catalytic activity/Vol] 22 U/L Normal 15-37 [facility] Comment on above: Order Comment: Order Date: 01/17/24Order Info: 0786-1 - CMP Performed By: #### L 500.2500 #### [facility] [address] [place], [address] Bilirubin [Mass/Vol] 0.80 mg/dL Normal 0.20-1.00 [facility] Comment on above: Order Comment: Order Date: 01/17/24Order Info: 0786-1 - CMP Result Comment: For patients on eltrombopag therapy, use of Dimension Antoine TBIL is not recommended. Performed By: #### L 500.2500 #### [facility] Laboratory [address] [place], [address] BUN/CRE 16.5 RATIO Normal 10-20 [facility] Comment on above: Order Comment: Order Date: 01/17/24Order Info: 0786-1 - CMP Performed By: #### L 500.2500 #### [facility] [address] [place], [address] CA,Total 9.1 mg/dL Normal 8.5-10.1 [facility] Comment on above: Order Comment: Order Date: 01/17/24Order Info: 0786-1 - CMP Performed By: #### L 500.2500 #### [facility] [address] [place], [address] Chloride [Moles/Vol] 96 mmol/L Low 98-107 [facility] Comment on above: Order Comment: Order Date: 01/17/24Order Info: 0786-1 - CMP Performed By: #### L 500.2500 #### [facility] [address] [place], [address] CO2 [Moles/Vol] 27.0 mmol/L Normal 21.0-32.0 [facility] Comment on above: Order Comment: Order Date: 01/17/24Order Info: 0786-1 - CMP Performed By: #### L 500.2500 #### [facility] [address] [place], [address] Creatinine [Mass/Vol] 0.73 mg/dL Normal 0.55-1.[address] [facility] Comment on above: Order Comment: Order Date: 01/17/24Order Info: 0786-1 - CMP Result Comment: The validity of the calculated GFR GFRAA in patients over 70 years has not been determined. Clinical correlation is essential. Performed By: #### L 500.2500 #### [facility] [address] [place], [address] EST GFR - AA 99 mL/min Normal >60 [facility] Comment on above: Order Comment: Order Date: 01/17/24Order Info: 0786-1 - CMP Result Comment: Afri can Montserratian GFR Calc Performed By: #### L 500.2500 #### [facility] [address] [place], [address] GAP 7 Normal 5-15 [facility] Comment on above: Order Comment: Order Date: 01/17/24Order Info: 07-1 - CMP Performed By: #### L 500.2500 #### [facility] [address] [place], [address] GFR/1.73 sq M.predicted among non-blacks MDRD (S/P/Bld) [Vol rate/Area] 82 mL/min/{1.73_m2} Normal >60 [facility] Comment on above: Order Comment: Order Date: 01/17/24Order Info: 0786-1 - CMP Result Comment: Non- GFR Calc Performed By: #### L 500.2500 #### [facility] [address] [place], [address] Globulin (S) [Mass/Vol] 2.9 g/dL Normal 2.2-4.2 [facility] Comment on above: Order Comment: Order Date: 01/17/24Order Info: 0786-1 - CMP Performed By: #### L 500.2500 #### [facility] [address] [place], [address] Glucose [Mass/Vol] 145 mg/dL High 74-106 [facility] Comment on above: Order Comment: Order Date: 01/17/24Order Info: 0786-1 - CMP Result Comment: Fast ing Glucose result greater than or equal to 126 mg/dL suggests DIABETES MELLITUS per A.D.A. criteria. Performed By: #### L 500.2500 #### [facility] [address] [place], [address] Potassium [Moles/Vol] 3.4 mmol/L Low 3.5-5.[address] [facility] Comment on above: Order Comment: Order Date: 01/17/24Order Info: 0786-1 - CMP Performed By: #### L 500.2500 #### [facility] [address] [place], [address] Sodium [Moles/Vol] 130 mmol/L Low 136-145 [facility] Comment on above: Order Comment: Order Date: 01/17/24Order Info: 0786-1 - CMP Performed By: #### L 500.2500 #### [facility] [address] [place], [address] T PROT 6.8 g/dL Normal 6.4-8.2 [facility] Comment on above: Order Comment: Order Date: 01/17/24Order Info: 0786-1 - CMP Performed By: #### L 500.2500 #### [facility] [address] [place], [address] Urea nitrogen [Mass/Vol] 12 mg/dL Normal 7-18 [facility] Comment on above: Order Comment: Order Date: 01/17/24Order Info: 0786-1 - CMP Performed By: #### L 500.2500 #### [facility] [address] [place], [address] Re-Evalution OTon 02-23-2024 Re-Evalution OT [facility] Occupational Therapy Health[address] [place] [address] / REEVALUATION / MEDICARE RECERTIFICATION OCCUPATIONAL THERAPY MR#: [id number] Acct: [id number] Name: SARAH MCGUIRE Rep #: [id number] : 1945 78 From: Lauryn Tubbs Referring Dr.: Dr. Monika eVnegas MD Status: RE G RCR Insurance: MEDICARE [...] L bicep 16.2# R bicep 14.1# L test grader 30# R test grader 35# Plan Plan Frequency: 2x /Week Duration: [...] 02/22:14.1# GOAL MET pt will improve L test grader strength to 35 pounds or more in order to maximize I in light IADL tasks as well as cross stitching 01/10/24: 25# 02/22: 30# pt will improve R test grader strength to 30 pounds or more in [...] assistance in order to return to PLOF CO GOAL MET Anticipated Interventions Anticipated Interventions Anticipated Interventions: A/AAROM/PROM, Strengthening, Joint Protection/Energy Conservation, Fine Motor Coord/Antelmo, Neuro Reeducation, ADL Training, Education re assistive Equipment, Education re Diagnosis, Caregiver Training and Home Program Re-Evaluation Ending Re-evaluation ending: Please do not hesitate to contact me at [phone] by phone or if you have questions or concerns regarding this new plan of care! Sincerely, Lauryn Tubbs 02/23/24 6182 CC: Dr. Monika Venegas MD CK Signed For Medicare only, by signing this I certify the plan of care. Physicians Signature Date Normal [facility] Re-Evaluation - PT (1)on Re-Evaluation - PT (1) [facility] Physical Therapy [address] [place] [address] / REEVALUATION / MEDICARE RECERTIFICATION PHYSICAL THERAPY MR#: [id number] Acct: [id number] Name: SARAH MCGUIRE Rep #: [id number] : 1945 78 From: Corey Zhao DPT, [...] do not hesitate to contact me at [phone] by phone or if you have questions or concerns regarding this new plan of care! Sincerely, Corey Zhao, DPT, OCS, CSCS 01/19/24 0902 CC: Dr. Monika Venegas MD EBG Signed For Medicare only, by signing this I certify the plan of care. Physicians Signature Date Normal [facility] 12 Lead EKG performed by [facility] on 01-17-2024 12 Lead EKG performed by [facility] [address] [place] [address] 12 Lead EKG performed by [facility] 01/17/24 1323 MR#: [id number] Acct: [id number] Name: SARAH MCGUIRE Rep #: [id number] : 1945 78 From: Lolly Haro Attending Dr: MAGALY Davis Status: DEP AMB Ordering Dr: Lolly Alejandra Date: 01/04 08/27 [place] [facility] Sex: F C Admitted: BMS/12 Lead EKG performed by [facility] ECG Report Interpretation ---Sinus Bradycardia WITHIN NORMAL LIMITSElectronically signed on 02/07/2024 at 15:56 by German [employer] Version 8610 02/07/24 1601 Date Lolly MCKENZIE CC: Dr. Monika Venegas MD Date Dictated: 01/17/241322 Date Transcribed: 01/17/241322 Electric Operator: SUSAN Signed Normal [facility] Cardiology Visit Reporton Cardiology Visit Report [facility] [place] [address] OFFICE VISIT Date of Service: 01/17/24 MR#: [id number] Acct: [id number] Name: SARAH MCGUIRE Rep #: [id number] : 1945 Provider: MAGALY Fitzgerald Age/Sex: 78/F [place] [facility] Status: Signed with Addenda ADDENDUM by MAGALY [...] (1) Paroxysmal atrial fibrillation: Status: Acute (2) snf current use of amiodarone: Status: Acute Orders: Orders 12 Lead EKG performed by [facility] Today Z79.899 - Other bed bug exterminator (current) drug therapy T4 Free Direct Today I48.0 - Paroxysmal atrial fibrillation, Z79.899 - Other bed bug exterminator (current) drug therapy Thyroid Stim Hormone (TSH) Today I48.0 - Paroxysmal atrial fibrillation, Z79.899 - Other jail (current) drug therapy Free T3 Today I48.0 - Paroxysmal atrial fibrillation, Z79.899 - Other bed bug exterminator (current) drug therapy Plan Details Follow Up: [...] months. She is still at [facility] for PT/OT. She is ambulating with [...] 97 Intake Visit Reasons: 6 M FU Tinner Automatic Required: No Is patient in pain?: No [...] tabs 08/17/23 (more content not included)... Normal [facility] Basic Metabolic Profile (BMP )on 01-13-2024 BUN/CRE 18.5 RATIO Normal 10-20 [facility] Comment on above: Order Comment: Order Date: 12/19/23Order Info: 0667-1 - BMP Performed By: #### L 500.2500 #### [facility] [address] [place], [address] CA,Total 9.0 mg/dL Normal 8.5-10.1 [facility] Comment on above: Order Comment: Order Date: 12/19/23Order Info: 666-06 - BMP Performed By: #### L 500.2500 #### [facility] [address] [place], [address] Chloride [Moles/Vol] 100 mmol/L Normal 98-107 [facility] Comment on above: Order Comment: Order Date: 12/19/23Order Info: 666-06 - BMP Performed By: #### L 500.2500 #### [facility] [address] [place], [address] CO2 [Moles/Vol] 28.0 mmol/L Normal 21.0-32.0 [facility] Comment on above: Order Comment: Order Date: 12/19/23Order Info: 666-06 - BMP Performed By: #### L 500.2500 #### [facility] [address] [place], [address] Creatinine [Mass/Vol] 0.81 mg/dL Normal 0.55-1.[address] [facility] Comment on above: Order Comment: Order Date: 12/19/23Order Info: 666-06 - BMP Result Comment: The validity of the calculated GFR GFRAA in patients over 70 years has not been determined. Clinical correlation is essential. Performed By: #### L 500.2500 #### [facility] [address] [place], [address] EST GFR - AA 87 mL/min Normal >60 [facility] Comment on above: Order Comment: Order Date: 12/19/23Order Info: 666-06 - BMP Result Comment: Afri can Montserratian GFR Calc Performed By: #### L 500.2500 #### [facility] [address] [place], [address] GAP 7 Normal 5-15 [facility] Comment on above: Order Comment: Order Date: 12/19/23Order Info: 666-06 - BMP Performed By: #### L 500.2500 #### [facility] [address] [place], [address] GFR/1.73 sq M.predicted among non-blacks MDRD (S/P/Bld) [Vol rate/Area] 72 mL/min/{1.73_m2} Normal >60 [facility] Comment on above: Order Comment: Order Date: 12/19/23Order Info: 666-06 - BMP Result Comment: Non- GFR Calc Performed By: #### L 500.2500 #### [facility] [address] [place], [address] Glucose [Mass/Vol] 161 mg/dL High 74-106 [facility] Comment on above: Order Comment: Order Date: 12/19/23Order Info: 666-06 - BMP Result Comment: Fast ing Glucose result greater than or equal to 126 mg/dL suggests DIABETES MELLITUS per A.D.A. criteria. Performed By: #### L 500.2500 #### [facility] [address] [place], [address] Potassium [Moles/Vol] 3.3 mmol/L Low 3.5-5.[address] [facility] Comment on above: Order Comment: Order Date: 12/19/23Order Info: 666-06 - BMP Performed By: #### L 500.2500 #### [facility] [address] [place], [address] Sodium [Moles/Vol] 135 mmol/L Low 136-145 [facility] Comment on above: Order Comment: Order Date: 12/19/23Order Info: 666-06 - BMP Performed By: #### L 500.2500 #### [facility] [address] [place], [address] Urea nitrogen [Mass/Vol] 15 mg/dL Normal 7-18 [facility] Comment on above: Order Comment: Order Date: 12/19/23Order Info: 0667-1 - BMP Performed By: #### L 500.2500 #### [facility] [address] [place], [address] Re-Evalution OTon 01-10-2024 Re-Evalution OT [facility] [address] [facility] [facility] [place] [address] / REEVALUATION / MEDICARE RECERTIFICATION OCCUPATIONAL THERAPY MR#: [id number] Acct: [id number] Name: SARAH MCGUIRE Rep #: [id number] : 1945 78 From: Lauryn Tubbs Referring [...] tasks 01/10/24: 9# pt will improve L test grader strength to 35 pounds or more in order to maximize I in light IADL tasks as well as cross stitching 01/10/24: 25# pt will improve R test grader strength to 30 pounds or more in [...] do not hesitate to contact me at [phone] by phone or if you have questions or concerns regarding this new plan of care! Sincerely, Lauryn Tubbs 01/10/24 3637 CC: Dr. Monika Venegas MD CK Signed For Medicare only, by signing this I certify the plan of care. Physicians Signature Date Normal [facility] Basic Metabolic Profile (BMP )on 12-16-2023 BUN/CRE 18.1 RATIO Normal -20 [facility] Comment on above: Order Comment: Order Date: 11/21/23Order Info: 666-06 - BMP Performed By: #### L 500.2500 #### [facility] [address] [place], [address] CA,Total 9.5 mg/dL Normal 8.5-10.1 [facility] Comment on above: Order Comment: Order Date: 11/21/23Order Info: 666-06 - BMP Performed By: #### L 500.2500 #### [facility] [address] [place], [address] Chloride [Moles/Vol] 96 mmol/L Low 98-107 [facility] Comment on above: Order Comment: Order Date: 11/21/23Order Info: 666-06 - BMP Performed By: #### L 500.2500 #### [facility] [address] [place], [address] CO2 [Moles/Vol] 26.0 mmol/L Normal 21.0-32.0 [facility] Comment on above: Order Comment: Order Date: 11/21/23Order Info: 666-06 - BMP Performed By: #### L 500.2500 #### [facility] [address] [place], [address] Creatinine [Mass/Vol] 0.83 mg/dL Normal 0.55-1.[address] [facility] Comment on above: Order Comment: Order Date: 11/21/23Order Info: 666-06 - BMP Result Comment: The validity of the calculated GFR GFRAA in patients over 70 years has not been determined. Clinical correlation is essential. Performed By: #### L 500.2500 #### [facility] [address] [place], [address] EST GFR - AA 85 mL/min Normal >60 [facility] Comment on above: Order Comment: Order Date: 11/21/23Order Info: 666-06 - BMP Result Comment: Afri can Montserratian GFR Calc Performed By: #### L 500.2500 #### [facility] [address] [place], [address] GAP 9 Normal 5-15 [facility] Comment on above: Order Comment: Order Date: 11/21/23Order Info: 666-06 - BMP Performed By: #### L 500.2500 #### [facility] [address] [place], [address] GFR/1.73 sq M.predicted among non-blacks MDRD (S/P/Bld) [Vol rate/Area] 70 mL/min/{1.73_m2} Normal >60 [facility] Comment on above: Order Comment: Order Date: 11/21/23Order Info: 666-06 - BMP Result Comment: Non- GFR Calc Performed By: #### L 500.2500 #### [facility] [address] [place], [address] Glucose [Mass/Vol] 98 mg/dL Normal 74-106 [facility] Comment on above: Order Comment: Order Date: 11/21/23Order Info: 666-06 - BMP Performed By: #### L 500.2500 #### [facility] [address] [place], [address] Potassium [Moles/Vol] 3.4 mmol/L Low 3.5-5.[address] [facility] Comment on above: Order Comment: Order Date: 11/21/23Order Info: 666-06 - BMP Performed By: #### L 500.2500 #### [facility] [address] [place], [address] Sodium [Moles/Vol] 131 mmol/L Low 136-145 [facility] Comment on above: Order Comment: Order Date: 11/21/23Order Info: 666-06 - BMP Performed By: #### L 500.2500 #### [facility] [address] [place], [address] Urea nitrogen [Mass/Vol] 15 mg/dL Normal 7-18 [facility] Comment on above: Order Comment: Order Date: 11/21/23Order Info: 0667-1 - BMP Performed By: #### L 500.2500 #### [facility] [address] [place], [address] MRI BRAIN WITH PERFUSIONon 0 12-01-2023 MRI [...] with no evidence of recurrent tumor. Normal [facility] Basophil percentageOrdered B y: Lolly Alejandra on 07-19-2023 Bilirubin [Mass/Vol] 1.00 mg/dL 0.20-1.00 [facility] Comment on above: For patients on eltr ombopag therapy, use of Dimension Antoine TBIL is not recommended. Protein [Mass/Vol] 7.2 g/dL 6.4-8.2 [facility] Direct bilirubinOrdered By: Lolly Alejandra on 07-19-2023 Bilirubin.direct [Mass/Vol] 0.32 mg/dL 0.00-0.30 [facility] - Chemistry and C hemistry - challengeOrdered By: Lolly Alejandra on 07-19-2023 ALP [Catalytic activity/Vol] 84 U/L 45-117 [facility] ALT [Catalytic activity/Vol] 29 U/L 13-56 [facility] Globulin (S) [Mass/Vol] 3.0 g/dL 2.2-4.2 [facility] No Panel InformationOrdered By: Lolly Alejandra on 07-19-2023 Free Triiodothyronine (T3) pg/dL 2.1 pg/mL 2.18-3.98 [facility] Serum or plasma thyroid stim ulating hormone (TSH) measurement (units/volume)Ordered By: Lolly Alejandra on 07-19-2023 TSH Qn 2.69 uIU/mL 0.358-3.74 [facility] Thin prep Papanicolaou smear with manual screeningOrdered By: Lolly Alejandra on 07-19-2023 Thin prep Papanicolaou smear with manual screening 4.2 g/dL 3.2-5.0 [facility] Thin prep Papanicolaou smear with manual screening 18 U/L 15-37 [facility] Thin prep Papanicolaou smear with manual screening 1.53 ng/dL 0.76-1.46 [facility] RAD ONC ARIA FRACTION SUMMAR Yon 02-16-2023 Course Elapsed Days 15 [facility] Course First Treatment Date 02/01/2023 12:46 PM [facility] Course ID C1 Meningioma [facility] Course Last Treatment Date 02/16/2023 9:15 AM [facility] Energy 6X [facility] Fraction Number 11 [facility] Plan Dose Delivered to Date 2200 cGy [facility] Plan Fractions Treated to Date 11 [facility] Plan ID L_Fronto_Temp [facility] Plan Prescribed Dose Per Fraction 200 cGy [facility] Plan Primary Reference Point 1.A L_FrontoTemp [facility] Plan Total Fractions Prescribed 30 [facility] Plan Total Prescribed Dose 6000 cGy [facility] Reference Point ID 1.A [facility] Treatment Dates 30 [facility] Radiology Study observation (narrative) [facility] RAD ONC ARIA FRACTION SUMMAR Yon 02-08-2023 Course Elapsed Days 7 [facility] Course First Treatment Date 02/01/2023 12:46 PM [facility] Course ID C1 Meningioma [facility] Course Last Treatment Date 02/08/2023 10:18 AM [facility] Energy 6X [facility] Fraction Number 5 [facility] Plan Dose Delivered to Date 1000 cGy [facility] Plan Fractions Treated to Date 5 [facility] Plan ID L_Fronto_Temp [facility] Plan Prescribed Dose Per Fraction 200 cGy [facility] Plan Primary Reference Point 1.A [facility] Plan Total Fractions Prescribed 30 [facility] Plan Total Prescribed Dose 6000 cGy [facility] Reference Point ID 1.A [facility] Treatment Dates [facility] Radiology Study observation (narrative) [facility] Absolute lymphocyte countOrd ered By: Monika Scruggsvilla on 01-18-2023 Lymphocytes Auto (Unsp spec) [#/Vol] 0.91 10*3/uL 0.83-4.51 [facility] Basophil percentageOrdered B y: Monika Venegas on 01-18-2023 Basophils/100 WBC (Bld) 0.3 % 0-1 [facility] Chloride [Moles/Vol] 98 mmol/L 98-107 [facility] Eosinophils/100 WBC (Bld) 1.5 % 0-5 [facility] Glucose [Mass/Vol] 113 mg/dL 74-106 [facility] Comment on above: Fasting Glucose resu lt from 100 to 125 mg/dL suggests IMPAIRED HOMEOSTASIS per A.D.A. criteria. Neutrophils (Bld) [#/Vol] 6.0 10*3/uL 2.0-7.7 [facility] Neutrophils/100 WBC (Bld) 76.8 % 47-70 [facility] Potassium [Moles/Vol] 4.4 mmol/L 3.5-5.[address] [facility] Sodium [Moles/Vol] 132 mmol/L 136-145 [facility] WBC (Bld) [#/Vol] 7.8 10*3/uL 4.4-11.0 [facility] Blood erythrocytes count (nu mber/volume)Ordered By: Monika Venegas on 01-18-2023 RBC (Bld) [#/Vol] 3.40 10*6/uL 4.2-5.4 [facility] Blood hemoglobin measurement (mass/volume)Ordered By: Monika Venegas on 01-18-2023 Hemoglobin (Bld) [Mass/Vol] 10.4 g/dL 12.0-15.0 [facility] Blood lymphocytes/100 leukoc ytesOrdered By: Monika Venegas on 01-18-2023 Lymphocytes/100 WBC (Bld) 11.7 % 19-41 [facility] Blood monocytes/100 leukocyt esOrdered By: Monika Venegas on 01-18-2023 Monocytes/100 WBC (Bld) 9.1 % 0-10 [facility] Blood platelet mean volumeOr dered By: Monika Venegas on 01-18-2023 Platelet mean volume (Bld) [Entitic vol] 10.5 fL 6.2-12.0 [facility] Determination of erythrocyte mean corpuscular volume (MCV)Ordered By: Monika Venegas on 01-18-2023 MCV (RBC) [Entitic vol] 90.6 fL 81-99 [facility] Hematocrit Auto (Bld) [Volum e fraction]Ordered By: Monika Venegas on 01-18-2023 Hematocrit (Bld) [Volume fraction] 30.8 % 37-47 [facility] - Chemistry and C hemistry - challengeOrdered By: Monika Venegas on 01-18-2023 CO2 [Moles/Vol] 30.0 mmol/L 21.0-32.0 [facility] Urea nitrogen/Creatinine [Mass ratio] 22.3 mg/mg 10-20 [facility] - Hematology and Cell countsOrdered By: Monika Venegas on 01-18-2023 Erythrocyte distribution width (RBC) [Entitic vol] 49.6 fL 35.1-43.9 [facility] Erythrocyte distribution width (RBC) [Ratio] 15.1 % 11.6-14.6 [facility] Immature granulocytes/100 WBC (Bld) 0.600 % 0.0-0.9 [facility] Comment on above: IG% - Immature Granu locytes (promyelocytes, myelocytes and metamyelocytes) > 1% indicates that a LEFT SHIFT is Present. MCH (RBC) [Entitic mass] 30.6 pg 27.0-32.0 [facility] Nucleated RBC/100 WBC (Bld) [Ratio] 0 % 0-5 [facility] MCHC Auto (RBC) [Mass/Vol]Or dered By: Monika Venegas on 01-18-2023 MCHC (RBC) [Mass/Vol] 33.8 g/dL 32-[address] [facility] No Panel InformationOrdered By: Monika Venegas on 01-18-2023 Estimated GFR (MDRD) Amer 101 mL/min >60 [facility] Comment on above: GFR Calc Estimated GFR (MDRD) Non-Af Amer 83 mL/min >60 [facility] Comment on above: Non- GFR Calc Platelets bldOrdered By: Monika Venegas on 01-18-2023 Platelets (Bld) [#/Vol] 245 10*3/uL 150-450 [facility] Serum or plasma calcium ena urement (mass/volume)Ordered By: Monika Venegas on 01-18-2023 Calcium [Mass/Vol] 9.4 mg/dL 8.5-10.1 [facility] Serum or plasma creatinine m easurement (mass/volume)Ordered By: Monika Venegas on 01-18-2023 Creatinine [Mass/Vol] 0.72 mg/dL 0.55-1.[address] [facility] Comment on above: The validity of the calculated GFR & GFRAA in patients over 70 years has not been determined. Clinical correlation is essential. Serum or plasma urea nitroge n measurement (mass/volume)Ordered By: Monika Venegas on 01-18-2023 Urea nitrogen [Mass/Vol] 16 mg/dL 7-18 [facility] Thin prep Papanicolaou smear with manual screeningOrdered By: Monika Venegas on 01-18-2023 Thin prep Papanicolaou smear with manual screening 4 5-15 [facility] Basophil percentageOrdered B y: Jo-Ann Arias on 12-27-2022 Chloride [Moles/Vol] 106 mmol/L 98-107 [facility] Glucose [Mass/Vol] 123 mg/dL 74-106 [facility] Comment on above: Fasting Glucose resu lt from 100 to 125 mg/dL suggests IMPAIRED HOMEOSTASIS per A.D.A. criteria. Potassium [Moles/Vol] 4.2 mmol/L 3.5-5.[address] [facility] Sodium [Moles/Vol] 137 mmol/L 136-145 [facility] Laboratory - Chemistry and C hemistry - challengeOrdered By: Jo-Ann Arias on 12-27-2022 CO2 [Moles/Vol] 27.0 mmol/L 21.0-32.0 [facility] Magnesium [Mass/Vol] 1.7 mg/dL 1.6-2.6 [facility] Urea nitrogen/Creatinine [Mass ratio] 26.9 mg/mg 10-20 [facility] No Panel InformationOrdered By: Jo-Ann Arias on 12-27-2022 Estimated Creatinine Clearance Calc 39.75 ml/min [facility] Estimated GFR (MDRD) Amer 146 mL/min >60 [facility] Comment on above: GFR Calc Estimated GFR (MDRD) Non-Af Amer 121 mL/min >60 [facility] Comment on above: Non- GFR Calc Serum or plasma calcium ena urement (mass/volume)Ordered By: Jo-Ann Arias on 12-27-2022 Calcium [Mass/Vol] 8.8 mg/dL 8.5-10.1 [facility] Serum or plasma creatinine m easurement (mass/volume)Ordered By: Jo-Ann Arias on 12-27-2022 Creatinine [Mass/Vol] 0.52 mg/dL 0.55-1.[address] [facility] Comment on above: The validity of the calculated GFR & GFRAA in patients over 70 years has not been determined. Clinical correlation is essential. Serum or plasma urea nitroge n measurement (mass/volume)Ordered By: Jo-Ann Hugo on 12-27-2022 Urea nitrogen [Mass/Vol] 14 mg/dL 7-18 [facility] Thin prep Papanicolaou smear with manual screeningOrdered By: Jo-Ann Arias on 12-27-2022 Thin prep Papanicolaou smear with manual screening 4 5-15 [facility] Absolute lymphocyte countOrd ered By: Isabelankurstaci Jacobo on 12-24-2022 Lymphocytes Auto (Unsp spec) [#/Vol] 0.91 10*3/uL 0.83-4.51 [facility] Basophil percentageOrdered B y: Laura Jacobo on 12-24-2022 Basophils/100 WBC (Bld) 0.4 % 0-1 [facility] Bilirubin [Mass/Vol] 0.70 mg/dL 0.20-1.00 [facility] Comment on above: For patients on eltr ombopag therapy, use of Dimension Antoine TBIL is not recommended. Chloride [Moles/Vol] 109 mmol/L 98-107 [facility] Eosinophils/100 WBC (Bld) 0.7 % 0-5 [facility] Glucose [Mass/Vol] 159 mg/dL 74-106 [facility] Comment on above: Fasting Glucose resu lt greater than or equal to 126 mg/dL suggests DIABETES MELLITUS per A.D.A. criteria. Neutrophils (Bld) [#/Vol] 3.9 10*3/uL 2.0-7.7 [facility] Neutrophils/100 WBC (Bld) 67.6 % 47-70 [facility] Potassium [Moles/Vol] 4.2 mmol/L 3.5-5.[address] [facility] Protein [Mass/Vol] 5.6 g/dL 6.4-8.2 [facility] Sodium [Moles/Vol] 138 mmol/L 136-145 [facility] WBC (Bld) [#/Vol] 5.7 10*3/uL 4.4-11.0 [facility] Blood erythrocytes count (nu mber/volume)Ordered By: Laura Jacobo on 12-24-2022 RBC (Bld) [#/Vol] 3.29 10*6/uL 4.2-5.4 [facility] Blood hemoglobin measurement (mass/volume)Ordered By: Laura Jacobo on 12-24-2022 Hemoglobin (Bld) [Mass/Vol] 9.7 g/dL 12.0-15.0 [facility] Blood lymphocytes/100 leukoc ytesOrdered By: Laura Jacobo on 12-24-2022 Lymphocytes/100 WBC (Bld) 15.9 % 19-41 [facility] Blood monocytes/100 leukocyt esOrdered By: Laura Jacobo on 12-24-2022 Monocytes/100 WBC (Bld) 13.1 % 0-10 [facility] Blood platelet mean volumeOr dered By: Laura Jacobo on 12-24-2022 Platelet mean volume (Bld) [Entitic vol] 9.9 fL 6.2-12.0 [facility] Determination of erythrocyte mean corpuscular volume (MCV)Ordered By: Laura Jacobo on 12-24-2022 MCV (RBC) [Entitic vol] 91.5 fL 81-99 [facility] Hematocrit Auto (Bld) [Volum e fraction]Ordered By: Laura Jacobo on 12-24-2022 Hematocrit (Bld) [Volume fraction] 30.1 % 37-47 [facility] Laboratory - Chemistry and C hemistry - challengeOrdered By: Laura Jacobo on 12-24-2022 ALP [Catalytic activity/Vol] 121 U/L 45-117 [facility] ALT [Catalytic activity/Vol] 36 U/L 13-56 [facility] CO2 [Moles/Vol] 23.0 mmol/L 21.0-32.0 [facility] Globulin (S) [Mass/Vol] 2.7 g/dL 2.2-4.2 [facility] Urea nitrogen/Creatinine [Mass ratio] 29.0 mg/mg 10-20 [facility] Laboratory - Hematology and Cell countsOrdered By: Laura Jacobo on 12-24-2022 Erythrocyte distribution width (RBC) [Entitic vol] 50.5 fL 35.1-43.9 [facility] Erythrocyte distribution width (RBC) [Ratio] 15.2 % 11.6-14.6 [facility] Immature granulocytes/100 WBC (Bld) 2.300 % 0.0-0.9 [facility] Comment on above: IG% - Immature Granu locytes (promyelocytes, myelocytes and metamyelocytes) > 1% indicates that a LEFT SHIFT is Present. MCH (RBC) [Entitic mass] 29.5 pg 27.0-32.0 [facility] Nucleated RBC/100 WBC (Bld) [Ratio] 0 % 0-5 [facility] MCHC Auto (RBC) [Mass/Vol]Or dered By: Laura Jacobo on 12-24-2022 MCHC (RBC) [Mass/Vol] 32.2 g/dL 32-[address] [facility] No Panel InformationOrdered By: Laura Jacobo on 12-24-2022 Estimated Creatinine Clearance Calc 39.97 ml/min [facility] Estimated GFR (MDRD) Amer 127 mL/min >60 [facility] Comment on above: GFR Calc Estimated GFR (MDRD) Non-Af Amer 105 mL/min >60 [facility] Comment on above: Non- GFR Calc Platelets bldOrdered By: Isabel Jacobo on 12-24-2022 Platelets (Bld) [#/Vol] 246 10*3/uL 150-450 [facility] Serum or plasma albumin ena urement (mass/volume)Ordered By: Laura Jacobo on 12-24-2022 Albumin [Mass/Vol] 2.9 g/dL 3.2-5.0 [facility] Serum or plasma albumin/glob ulin mass ratioOrdered By: Laura Jacobo on 12-24-2022 Albumin/Globulin [Mass ratio] 1.1 {ratio} 0.9-2.4 [facility] Serum or plasma calcium ena urement (mass/volume)Ordered By: Laura Jcaobo on 12-24-2022 Calcium [Mass/Vol] 8.8 mg/dL 8.5-10.1 [facility] Serum or plasma creatinine m easurement (mass/volume)Ordered By: Laura Jacobo on 12-24-2022 Creatinine [Mass/Vol] 0.59 mg/dL 0.55-1.[address] [facility] Comment on above: The validity of the calculated GFR & GFRAA in patients over 70 years has not been determined. Clinical correlation is essential. Serum or plasma urea nitroge n measurement (mass/volume)Ordered By: Laura Jaocbo on 12-24-2022 Urea nitrogen [Mass/Vol] 17 mg/dL 7-18 [facility] Thin prep Papanicolaou smear with manual screeningOrdered By: Laura Jacobo on 12-24-2022 Thin prep Papanicolaou smear with manual screening 14 U/L 15-37 [facility] Thin prep Papanicolaou smear with manual screening 6 5-15 [facility] No Panel InformationOrdered By: Laura Jacobo on 12-23-2022 Thyroid Stimulating Hormone (TSH) 2.34 uIU/mL 0.358-3.74 [facility] Basophil percentageOrdered B y: Jo-Ann Arias on 12-20-2022 Sodium [Moles/Vol] 137 mmol/L 136-145 [facility] Basophil percentageOrdered B y: Jo-Ann Arias on 12-16-2022 Chloride [Moles/Vol] 103 mmol/L 98-107 [facility] Glucose [Mass/Vol] 127 mg/dL 74-106 [facility] Comment on above: Fasting Glucose resu lt greater than or equal to 126 mg/dL suggests DIABETES MELLITUS per A.D.A. criteria. Potassium [Moles/Vol] 4.2 mmol/L 3.5-5.[address] [facility] Laboratory - Chemistry and C hemistry - challengeOrdered By: Jo-Ann Arias on 12-16-2022 CO2 [Moles/Vol] 27.0 mmol/L 21.0-32.0 [facility] Magnesium [Mass/Vol] 2.1 mg/dL 1.6-2.6 [facility] Urea nitrogen/Creatinine [Mass ratio] 13.3 mg/mg 10-20 [facility] No Panel InformationOrdered By: Jo-Ann Arias on 12-16-2022 Estimated Creatinine Clearance Calc 42.34 ml/min [facility] Estimated GFR (MDRD) Amer 144 mL/min >60 [facility] Comment on above: GFR Calc Estimated GFR (MDRD) Non-Af Amer 119 mL/min >60 [facility] Comment on above: Non- GFR Calc Serum or plasma calcium ena urement (mass/volume)Ordered By: Jo-Ann Arias on 12-16-2022 Calcium [Mass/Vol] 8.8 mg/dL 8.5-10.1 [facility] Serum or plasma creatinine m easurement (mass/volume)Ordered By: Jo-Ann Arias on 12-16-2022 Creatinine [Mass/Vol] 0.53 mg/dL 0.55-1.[address] [facility] Comment on above: The validity of the calculated GFR & GFRAA in patients over 70 years has not been determined. Clinical correlation is essential. Serum or plasma urea nitroge n measurement (mass/volume)Ordered By: Jo-Ann Arias on 12-16-2022 Urea nitrogen [Mass/Vol] 7 mg/dL 7-18 [facility] Thin prep Papanicolaou smear with manual screeningOrdered By: Jo-Ann Arias on 12-16-2022 Thin prep Papanicolaou smear with manual screening 4 5-15 [facility] Blood hemoglobin measurement (mass/volume)Ordered By: Jo-Ann Arias on 12-13-2022 Hemoglobin (Bld) [Mass/Vol] 9.8 g/dL 12.0-15.0 [facility] Hematocrit Auto (Bld) [Volum e fraction]Ordered By: Jo-Ann Arias on 12-13-2022 Hematocrit (Bld) [Volume fraction] 29.1 % 37-47 [facility] Glucose Glucometer (BldC) [M ass/Vol]Ordered By: Jo-Ann Arias on 12-10-2022 Glucose [Mass/Vol] 120 mg/dL 74-106 [facility] Comment on above: MANAGEMENT OF PATIEN T CARE PER NURSING PROTOCOL Basophil percentageOrdered B y: Jo-Ann Arias on 12-07-2022 Basophil percentage 3.2 mg/dL 2.5-4.9 [facility] Bilirubin [Mass/Vol] 1.00 mg/dL 0.20-1.00 [facility] Comment on above: For patients on eltr ombopag therapy, use of Dimension Antoine TBIL is not recommended. Protein [Mass/Vol] 4.8 g/dL 6.4-8.2 [facility] WBC (Bld) [#/Vol] 10.0 10*3/uL 4.4-11.0 [facility] Blood erythrocytes count (nu mber/volume)Ordered By: Jo-Ann Arias on 12-07-2022 RBC (Bld) [#/Vol] 3.34 10*6/uL 4.2-5.4 [facility] Blood platelet mean volumeOr dered By: Jo-Ann Arias on 12-07-2022 Platelet mean volume (Bld) [Entitic vol] 9.2 fL 6.2-12.0 [facility] Clostridium difficile detect ion by polymerase chain reactionOrdered By: Jo-Ann Arias on 12-07-2022 C. difficile DNA SHAHBAZ+probe Ql (Unsp spec) [facility] Determination of erythrocyte mean corpuscular volume (MCV)Ordered By: Jo-Ann Arias on 12-07-2022 MCV (RBC) [Entitic vol] 88.9 fL 81-99 [facility] Laboratory - Chemistry and C hemistry - challengeOrdered By: Jo-Ann Arias on 12-07-2022 ALP [Catalytic activity/Vol] 74 U/L 45-117 [facility] ALT [Catalytic activity/Vol] 23 U/L 13-56 [facility] Globulin (S) [Mass/Vol] 3.0 g/dL 2.2-4.2 [facility] Laboratory - Hematology and Cell countsOrdered By: Jo-Ann Arias on 12-07-2022 Erythrocyte distribution width (RBC) [Entitic vol] 46.3 fL 35.1-43.9 [facility] Erythrocyte distribution width (RBC) [Ratio] 14.4 % 11.6-14.6 [facility] MCH (RBC) [Entitic mass] 30.2 pg 27.0-32.0 [facility] MCHC Auto (RBC) [Mass/Vol]Or dered By: Jo-Ann Arias on 12-07-2022 MCHC (RBC) [Mass/Vol] 34.0 g/dL 32-[address] [facility] Platelets bldOrdered By: Alyssa Arias on 12-07-2022 Platelets (Bld) [#/Vol] 229 10*3/uL 150-450 [facility] Serum or plasma albumin ena urement (mass/volume)Ordered By: Jo-Ann Hugo on 12-07-2022 Albumin [Mass/Vol] 1.8 g/dL 3.2-5.0 [facility] Serum or plasma albumin/glob ulin mass ratioOrdered By: Jo-Ann Hugo on 12-07-2022 Albumin/Globulin [Mass ratio] 0.6 {ratio} 0.9-2.4 [facility] Stool Clostridium difficile detectionOrdered By: Jo-Ann Arias on 12-07-2022 C. difficile Ql (Stl) [facility] Thin prep Papanicolaou smear with manual screeningOrdered By: Jo-Ann Arias on 12-07-2022 Thin prep Papanicolaou smear with manual screening 16 U/L 15-37 [facility] Absolute lymphocyte counton 11-09-2022 Lymphocytes Auto (Unsp spec) [#/Vol] 1.41 10*3/uL 0.83-4.51 [facility] Basophil percentageon 2022 Basophils/100 WBC (Bld) 0.4 % 0-1 [facility] Chloride [Moles/Vol] 100 mmol/L 98-107 [facility] Eosinophils/100 WBC (Bld) 1.0 % 0-5 [facility] Glucose [Mass/Vol] 108 mg/dL 74-106 [facility] Comment on above: Fasting Glucose resu lt from 100 to 125 mg/dL suggests IMPAIRED HOMEOSTASIS per A.D.A. criteria. Neutrophils (Bld) [#/Vol] 6.1 10*3/uL 2.0-7.7 [facility] Neutrophils/100 WBC (Bld) 72.5 % 47-70 [facility] Potassium [Moles/Vol] 3.8 mmol/L 3.5-5.[address] [facility] Sodium [Moles/Vol] 133 mmol/L 136-145 [facility] WBC (Bld) [#/Vol] 8.3 10*3/uL 4.4-11.0 [facility] Blood erythrocytes count (nu mber/volume)on 11-09-2022 RBC (Bld) [#/Vol] 3.93 10*6/uL 4.2-5.4 [facility] Blood hemoglobin measurement (mass/volume)on 11-09-2022 Hemoglobin (Bld) [Mass/Vol] 12.2 g/dL 12.0-15.0 [facility] Blood lymphocytes/100 leukoc yteson 11-09-2022 Lymphocytes/100 WBC (Bld) 16.9 % 19-41 [facility] Blood monocytes/100 leukocyt eson 11-09-2022 Monocytes/100 WBC (Bld) 8.8 % 0-10 [facility] Blood platelet mean volumeon 11-09-2022 Platelet mean volume (Bld) [Entitic vol] 9.8 fL 6.2-12.0 [facility] Determination of erythrocyte mean corpuscular volume (MCV)on 11-09-2022 MCV (RBC) [Entitic vol] 88.3 fL 81-99 [facility] Hematocrit Auto (Bld) [Volum e fraction]on 11-09-2022 Hematocrit (Bld) [Volume fraction] 34.7 % 37-47 [facility] INR in Blood by Coagulation assayon 11-09-2022 INR Coag (Bld) [Relative time] 0.9 {INR} [facility] Laboratory - Chemistry and C hemistry - challengeon 11-09-2022 CO2 [Moles/Vol] 27.0 mmol/L 21.0-32.0 [facility] Urea nitrogen/Creatinine [Mass ratio] 21.3 mg/mg 10-20 [facility] Laboratory - Coagulationon 0 11-09-2022 aPTT Coag (Bld) [Time] 29.1 s 24.1-36.2 [facility] PT Coag (PPP) [Time] 12.5 s 11.7-14.9 [facility] Laboratory - Hematology and Cell countson 11-09-2022 Erythrocyte distribution width (RBC) [Entitic vol] 42.7 fL 35.1-43.9 [facility] Erythrocyte distribution width (RBC) [Ratio] 13.2 % 11.6-14.6 [facility] Immature granulocytes/100 WBC (Bld) 0.400 % 0.0-0.9 [facility] Comment on above: IG% - Immature Granu locytes (promyelocytes, myelocytes and metamyelocytes) > 1% indicates that a LEFT SHIFT is Present. MCH (RBC) [Entitic mass] 31.0 pg 27.0-32.0 [facility] Nucleated RBC/100 WBC (Bld) [Ratio] 0 % 0-5 [facility] MCHC Auto (RBC) [Mass/Vol]on 11-09-2022 MCHC (RBC) [Mass/Vol] 35.2 g/dL 32-[address] [facility] No Panel Informationon 11-09 Estimated GFR (MDRD) Amer 103 mL/min >60 [facility] Comment on above: GFR Calc Estimated GFR (MDRD) Non-Af Amer 85 mL/min >60 [facility] Comment on above: Non- GFR Calc Platelets bldon 11-09-2022 Platelets (Bld) [#/Vol] 272 10*3/uL 150-450 [facility] Serum or plasma calcium ena urement (mass/volume)on 11-09-2022 Calcium [Mass/Vol] 9.3 mg/dL 8.5-10.1 [facility] Serum or plasma creatinine m easurement (mass/volume)on 11-09-2022 Creatinine [Mass/Vol] 0.70 mg/dL 0.55-1.[address] [facility] Comment on above: The validity of the calculated GFR & GFRAA in patients over 70 years has not been determined. Clinical correlation is essential. Serum or plasma urea nitroge n measurement (mass/volume)on 11-09-2022 Urea nitrogen [Mass/Vol] 15 mg/dL 7-18 [facility] Thin prep Papanicolaou smear with manual screeningon 11-09-2022 Thin prep Papanicolaou smear with manual screening 6 5-15 [facility] EXTRA MICROon 10-09-2022 [facility] SCREEN: MRSA/MSSAOrdered By: Patrick Galicia on 10-09-2022 Interpretation and review of laboratory results Normal [facility] Methicillin Resistant S. Aureus By Pcr Negative Negative [facility] Staphylococcus Aureus By Pcr Negative Negative [facility] This test was perfor med using [...] by the Clinical Microbiology Laboratory at [facility]. It has not been cleared or approved by the FDA.The laboratory is regulated under CLIA as qualified to perform high-complexity testing. This test is used for clinical purposes. It should not be regarded as investigational or for research. [facility] CBC AND ELECTRONIC DIFFon Basophils (Bld) [#/Vol] 0.05 10*3/uL 0.00 - 0.15 K/uL [facility] Basophils/100 WBC (Bld) 0.5 % [facility] Differential cell count method Nom (Bld) Electronic Differential [facility] Eosinophils (Bld) [#/Vol] 0.08 10*3/uL 0.00 - 0.42 K/uL [facility] Eosinophils/100 WBC (Bld) 0.8 % [facility] Erythrocyte distribution width (RBC) [Ratio] 12.9 % 10.8 - 14.9 % [facility] Hematocrit (Bld) [Volume fraction] 38.0 % 34.9 - 44.3 % [facility] Hemoglobin (Bld) [Mass/Vol] 13.0 g/dL 11.4 - 15.2 g/dL [facility] Immature granulocytes (Bld) [#/Vol] 0.05 10*3/uL NINF - 0.08 K/uL [facility] Immature granulocytes/100 WBC (Bld) 0.5 % [facility] Interpretation and review of laboratory results Abnormal [facility] Lymphocytes (Bld) [#/Vol] 1.34 10*3/uL 1.16 - 3.51 K/uL [facility] Lymphocytes/100 WBC (Bld) 13.4 % [facility] MCH (RBC) [Entitic mass] 29.5 pg 25.9 - 33.9 pg [facility] MCHC (RBC) [Mass/Vol] 34.2 g/dL 31.4 - 35.9 g/dL [facility] MCV (RBC) [Entitic vol] 86.2 fL 79.6 - 97.7 fL [facility] Monocytes (Bld) [#/Vol] 0.76 10*3/uL 0.22 - 0.87 K/uL [facility] Monocytes/100 WBC (Bld) 7.6 % [facility] Neutrophils (Bld) [#/Vol] 7.74 10*3/uL High 1.64 - 7.28 K/uL [facility] Nucleated RBC/100 WBC (Bld) [Ratio] 0.0 % [facility] Platelet mean volume (Bld) [Entitic vol] 10.3 fL 8.5 - 12.2 fL [facility] Platelets (Bld) [#/Vol] 280 10*3/uL 150 - 393 K/uL [facility] RBC (Bld) [#/Vol] 4.41 10*6/uL [facility] Segmented neutrophils/100 WBC (Bld) 77.2 % [facility] WBC (Bld) [#/Vol] 10.02 10*3/uL 3.99 - 11 .19 K/uL [facility] CHEM 7 (LYTES,BUN,CREA,GLUC) on 10-08-2022 Anion gap [Moles/Vol] 11 mmol/L 7 - 17 mmol/L [facility] Chloride [Moles/Vol] 93 mmol/L Low 98 - 10 8 mmol/L [facility] CO2 [Moles/Vol] 28 mmol/L 21 - 31 mmol/L [facility] Creatinine [Mass/Vol] 0.72 mg/dL 0.50 - 1.20 mg/dL [facility] GFR/1.73 sq M.predicted CKD-EPI (S/P/Bld) [Vol rate/Area] 86 - PINF [facility] Comment on above: Reported eGFR is bas ed on the CKD-EPI 2021 equation using creatinine, age, and sex. Glucose [Mass/Vol] 106 mg/dL High 70 - 99 mg/dL [facility] Interpretation and review of laboratory results Abnormal [facility] Osmolality Calc [Osmolality] 272 Low [facility] Potassium [Moles/Vol] 4.3 mmol/L 3.5 - 5.0 mmol/L [facility] Sodium [Moles/Vol] 128 mmol/L Low 135 - 145 mmol/L [facility] Urea nitrogen [Mass/Vol] 15 mg/dL 7 - 25 mg/dL [facility] Urea nitrogen/Creatinine [Mass ratio] 21 mg/mg [facility] EXTRA LIGHT BLUE TOP DOUBLE SPINon 10-08-2022 Dummy LRR - Route to Double Spin Received [facility] PREPARE TO TRANSFUSE OR RED BLOOD CELLSon 10-08-2022 [facility] PROTIME-INRon 10-08-2022 INR Coag (Bld) [Relative time] 1.0 {INR} 0.9 - 1.1 [facility] Interpretation and review of laboratory results Normal [facility] PT Coag (PPP) [Time] 13.2 s [facility] PTT W/MIXING STUDY PERF ONLY Ordered By: Adia Ross on 10-08-2022 aPTT Coag (PPP) [Time] 28.7 s OS [facility] PTT Mixing Study With Normal Plasma Not Indicated [facility] TYPE AND SCREEN - PREADMISSI ONon 10-08-2022 ABO/RH(D) TYPE AB NEG [facility] URINALYSIS REFLEX TO CULTURE PERFORMABLEOrdered By: Paula Dixon on 10-08-2022 Appearance (U) Clear Clear [facility] Bacteria LM Ql (Urine sed) TRACE Abnormal ABSENT [facility] Color (U) Yellow Yellow [facility] Epithelial cells.squamous LM Ql (Urine sed) 1/hpf = 1+ 1/hpf = 1+, 2-5/hpf = 2+, 0/hpf = 0+, ABSENT [facility] Glucose Test strip (U) [Mass/Vol] Negative Negative [facility] Interpretation and review of laboratory results Abnormal [facility] Ketones (U) [Mass/Vol] Negative Negative OS U [facility] Leukocyte esterase Test strip Ql (U) Trace Abnormal Negative [facility] Nitrite Ql (U) Negative Negative [facility] pH (U) 7.0 [pH] 5.0 - 7.0 [facility] Protein (U) [Mass/Vol] Negative Negative [facility] RBC (U) [#/Vol] Negative Negative [facility] RBC LM.HPF (Urine sed) [#/Area] 0-2 [facility] Specific gravity (U) [Rel density] 1.015 1.001 - PINF [facility] Urobilinogen (U) [Mass/Vol] 0.2 E.U./dL 0.2 E.U/dL, 1.0 E.U/dL [facility] WBC LM.HPF (Urine sed) [#/Area] 0-5 [facility] XR Chest PA and Lateralon IMPRESSION: [...] Normal IMPRESSION IMPRESSION: No acute cardiopulmonary disease [facility] Radiology Study observation (narrative) [facility] XR Chest PA and LateralOrder ed By: Abraham Bahena on 10-08-2022 [facility] Work Phone: CT Cheston 10-06-2022 IMPRESSION: [...] separately. IMPRESSION IMPRESSION: Agree with outside interpretation. [facility] CT ChestOrdered By: Ernie Coburn on 10-06-2022 [facility] Work Phone: CT Abdomen and Pelvison Outside Imaging Stud y for Support of Clinical Care This study was sent from an outside facility to [facility] for support of clinical care of the patient within the [facility] system. [facility] CT Cheston 10-04-2022 Radiology Study observation (narrative) [facility] Basophil percentageOrdered B y: Dr. Venegas on 09-21-2022 Chloride [Moles/Vol] 101 mmol/L 98-107 [facility] Cholesterol [Mass/Vol] 164 mg/dL <200 [facility] Comment on above: <200 mg/dL Desirable 200-240 mg/dL Borderline >240 mg/dL High Risk Glucose [Mass/Vol] 107 mg/dL 74-106 [facility] Comment on above: Fasting Glucose resu lt from 100 to 125 mg/dL suggests IMPAIRED HOMEOSTASIS per A.D.A. criteria. Potassium [Moles/Vol] 3.7 mmol/L 3.5-5.[address] [facility] Sodium [Moles/Vol] 132 mmol/L 136-145 [facility] Triglyceride [Mass/Vol] 97 mg/dL <199 [facility] Comment on above: The drugs N-Acetylcy steine and Metamizole may falsely depress this assay.Serum Triglycerides Reference Interval Normal <150 mg/dL Borderline high 150 - 199 mg/dL High 200 - 499 mg/dL Very High > or = 500 mg/dL Laboratory - Chemistry and C hemistry - challengeOrdered By: Dr. Venegas on 09-21-2022 ALT [Catalytic activity/Vol] 28 U/L 13-56 [facility] CO2 [Moles/Vol] 26.0 mmol/L 21.0-32.0 [facility] Urea nitrogen/Creatinine [Mass ratio] 19.0 mg/mg 10-20 [facility] No Panel InformationOrdered By: Dr. Venegas on 09-21-2022 Estimated GFR (MDRD) Amer 98 mL/min >60 [facility] Comment on above: GFR Calc Estimated GFR (MDRD) Non-Af Amer 81 mL/min >60 [facility] Comment on above: Non- GFR Calc Urine Microalbumin/Creatinine Ratio 21.9 mg/g CRE <30 [facility] Serum or plasma calcium ena urement (mass/volume)Ordered By: Dr. Venegas on 09-21-2022 Calcium [Mass/Vol] 9.3 mg/dL 8.5-10.1 [facility] Serum or plasma cholesterol in HDL measurement (mass/volume)Ordered By: Dr. Venegas on 09-21-2022 Cholesterol in HDL [Mass/Vol] 63 mg/dL >40 [facility] Comment on above: The drugs N-Acetylcy steine and Metamizole may falsely depress this assay. Reference Range HDL <40 mg/dL Low HDL Cholesterol HDL >or= 60 mg/dL High HDL Cholesterol Serum or plasma cholesterol in VLDL measurement (mass/volume)Ordered By: Dr. Venegas on 09-21-2022 Cholesterol in VLDL [Mass/Vol] 19 mg/dL 5-40 [facility] Serum or plasma creatinine m easurement (mass/volume)Ordered By: Dr. Venegas on 09-21-2022 Creatinine [Mass/Vol] 0.74 mg/dL 0.55-1.[address] [facility] Comment on above: The validity of the calculated GFR & GFRAA in patients over 70 years has not been determined. Clinical correlation is essential. Serum or plasma low density lipoprotein (LDL) cholesterol measurement (mass/volume)Ordered By: Dr. Venegas on 09-21-2022 Cholesterol in LDL [Mass/Vol] 82 mg/dL 0-130 [facility] Serum or plasma urea nitroge n measurement (mass/volume)Ordered By: Dr. Venegas on 09-21-2022 Urea nitrogen [Mass/Vol] 14 mg/dL 7-18 [facility] Thin prep Papanicolaou smear with manual screeningOrdered By: Dr. Venegas on 09-21-2022 Thin prep Papanicolaou smear with manual screening 18 U/L 15-37 [facility] Thin prep Papanicolaou smear with manual screening 5 5-15 [facility] Thin prep Papanicolaou smear with manual screening 7.6 mg/L NO RANGE EST. [facility] Urine creatinine measurement (mass/volume)Ordered By: Dr. Venegas on 09-21-2022 Creatinine (U) [Mass/Vol] 34.60 mg/dL NO RANGE EST. [facility] Basophil percentageon 2021 Chloride [Moles/Vol] 101 mmol/L 98-107 [facility] Work Phone: Cholesterol [Mass/Vol] 155 mg/dL <200 kacie [facility] Work Phone: Comment on above: <200 mg/dL Desirable 200-240 mg/dL Borderline >240 mg/dL High Risk Glucose [Mass/Vol] 152 mg/dL 74-106 [facility] Work Phone: Comment on above: Fasting Glucose resu lt greater than or equal to 126 mg/dL suggests DIABETES MELLITUS per A.D.A. criteria. Potassium [Moles/Vol] 3.7 mmol/L 3.5-5.[address] [facility] Work Phone: Sodium [Moles/Vol] 135 mmol/L 136-145 [facility] Work Phone: [phone] Triglyceride [Mass/Vol] 180 mg/dL <199 [facility] Work Phone: [phone] Comment on above: The drugs N-Acetylcy steine and Metamizole may falsely depress this assay.Serum Triglycerides Reference Interval Normal <150 mg/dL Borderline high 150 - 199 mg/dL High 200 - 499 mg/dL Very High > or = 500 mg/dL Laboratory - Chemistry and C hemistry - challengeon 03-23-2022 ALT [Catalytic activity/Vol] 26 U/L 13-56 [facility] Work Phone: [phone] CO2 [Moles/Vol] 27.0 mmol/L 21.0-32.0 [facility] Work Phone: [phone] Urea nitrogen/Creatinine [Mass ratio] 23.6 mg/mg 10-20 [facility] Work Phone: [phone] Panel Informationon 03-23 Estimated GFR (MDRD) Amer 79 mL/min >60 [facility] Work Phone: [phone] Comment on above: GFR Calc Estimated GFR (MDRD) Non-Af Amer 65 mL/min >60 [facility] Work Phone: [phone] Comment on above: Non- GFR Calc Serum or plasma calcium ena urement (mass/volume)on 03-23-2022 Calcium [Mass/Vol] 9.4 mg/dL 8.5-10.1 [facility] Work Phone: [phone] Serum or plasma cholesterol in HDL measurement (mass/volume)on 03-23-2022 Cholesterol in HDL [Mass/Vol] 53 mg/dL >40 [facility] Work Phone: [phone] Comment on above: The drugs N-Acetylcy steine and Metamizole may falsely depress this assay. Reference Range HDL <40 mg/dL Low HDL Cholesterol HDL >or= 60 mg/dL High HDL Cholesterol Serum or plasma cholesterol in VLDL measurement (mass/volume)on 03-23-2022 Cholesterol in VLDL [Mass/Vol] 36 mg/dL 5-40 [facility] Work Phone: Serum or plasma creatinine m easurement (mass/volume)on 03-23-2022 Creatinine [Mass/Vol] 0.89 mg/dL 0.55-1.[address] [facility] Work Phone: Comment on above: The validity of the calculated GFR & GFRAA in patients over 70 years has not been determined. Clinical correlation is essential. Serum or plasma low density lipoprotein (LDL) cholesterol measurement (mass/volume)on 03-23-2022 Cholesterol in LDL [Mass/Vol] 66 mg/dL 0-130 [facility] Work Phone: Serum or plasma urea nitroge n measurement (mass/volume)on 03-23-2022 Urea nitrogen [Mass/Vol] 21 mg/dL 7-18 [facility] Work Phone: Thin prep Papanicolaou smear with manual screeningon 03-23-2022 Thin prep Papanicolaou smear with manual screening 17 U/L 15-37 [facility] Work Phone: Thin prep Papanicolaou smear with manual screening 7 5-15 [facility] Work Phone: Vital Signs Date Time Vital Sign Value Performing Clinician Facility 12-03-2024 22:00-0400 Body temperature 97.8 [degF] Dr. Monika Venegas MD Work Phone: [facility] 12-03-2024 22:00-0400 Diastolic blood pressure 55 mm[Hg] Dr. Monika Venegas MD Work Phone: [facility] 12-03-2024 22:00-0400 Heart rate 60 /min Dr. Monika Venegas MD Work Phone: [facility] 12-03-2024 22:00-0400 Respiratory rate 15 /min Dr. Monika Venegas MD Work Phone: [facility] 12-03-2024 22:00-0400 SaO2% (BldA) [Mass fraction] 97 % Dr. Monika Venegas MD Work Phone: 9(494)085-803407 [place] [address] 12-03-2024 22:00-0400 Systolic blood pressure 159 mm[Hg] Dr. Monika Venegas MD Work Phone: 9(464)211-129252 [place] [address] 12-03-2024 17:32-0400 Body mass index (BMI) [Ratio] 25.3 kg/m2 Dr. Monika Venegas MD Work Phone: 3(887)962-795152 [place] [address] 12-03-2024 17:32-0400 Body weight 49.[address] Monika Venegas MD Work Phone: 1(307)811-739552 [place] [address] 12-03-2024 15:46-0400 Body height 139.[address] Monika Venegas MD Work Phone: 6(911)176-669952 [place] [address] 11-29-2024 08:20-0400 Diastolic blood pressure 44 mm[Hg] Dr. Monika Venegas MD Work Phone: 6(266)007-253252 [place] [address] 11-29-2024 08:20-0400 Heart rate 70 /min Dr. Monika Venegas MD Work Phone: 3(082)996-601252 [place] [address] 11-29-2024 08:20-0400 Systolic blood pressure 126 mm[Hg] Dr. Monika Venegas MD Work Phone: 3(196)093-572452 [place] [address] 11-29-2024 06:18-0400 Body temperature 98.7 [degF] Dr. Monika Venegas MD Work Phone: 2(016)725-466252 [place] [address] 11-29-2024 06:18-0400 Respiratory rate 20 /min Dr. Monika Venegas MD Work Phone: 9(839)239-656352 [place] [address] 11-29-2024 06:18-0400 SaO2% (BldA) [Mass fraction] 97 % Dr. Monika Venegas MD Work Phone: 9(625)261-213552 [place] [address] 11-26-2024 10:00-0400 Body height 139.[address] Monika Venegas MD Work Phone: 3(135)153-168652 [place] [address] 11-26-2024 10:00-0400 Body weight 48.[address] Monika Venegas MD Work Phone: [facility] 11-23-2024 05:03-0400 Body mass index (BMI) [Ratio] 24.7 kg/m2 Dr. Monika Venegas MD Work Phone: [facility] 11-12-2024 11:54-0400 Body height 142.2 cm Ignacio De La Garza Sr., MD, PhD Work Phone: [facility] 11-12-2024 11:54-0400 Body mass index (BMI) [Ratio] 24.89 kg/m2 Ignacio De La Garza Sr., MD, PhD Work Phone: [facility] 11-12-2024 11:54-0400 Body temperature 97.9 [degF] Ignacio De La Garza Sr., MD, PhD Work Phone: [facility] 11-12-2024 11:54-0400 Body weight 50.35 kg Ignacio De La Garza Sr., MD, PhD Work Phone: [facility] 11-12-2024 11:54-0400 Diastolic blood pressure 66 mm[Hg] Ignacio De La Garza Sr., MD, PhD Work Phone: [facility] 11-12-2024 11:54-0400 Heart rate 59 /min Ignacio De La Garza Sr., MD, PhD Work Phone: [facility] 11-12-2024 11:54-0400 Respiratory rate 18 /min Ignacio De La Garza Sr., MD, PhD Work Phone: [facility] 11-12-2024 11:54-0400 SaO2% (BldA) [Mass fraction] 98 % Ignacio De La Garza Sr., MD, PhD Work Phone: [facility] 11-12-2024 11:54-0400 Systolic blood pressure 150 mm[Hg] Ignacio De La Garza Sr., MD, PhD Work Phone: [facility] 11-07-2024 12:00-0400 Diastolic blood pressure 59 mm[Hg] Dr. Monika Venegas MD Work Phone: [facility] 11-07-2024 12:00-0400 Heart rate 58 /min Dr. Monika Venegas MD Work Phone: [facility] 11-07-2024 12:00-0400 Respiratory rate 20 /min Dr. Monika Venegas MD Work Phone: [facility] 11-07-2024 12:00-0400 SaO2% (BldA) [Mass fraction] 100 % Dr. Monika Venegas MD Work Phone: [facility] 11-07-2024 12:00-0400 Systolic blood pressure 194 mm[Hg] Dr. Monika Venegas MD Work Phone: [facility] 11-07-2024 11:07-0400 Body mass index (BMI) [Ratio] 26.1 kg/m2 Dr. Monika Venegas MD Work Phone: [facility] 11-07-2024 11:07-0400 Body temperature 97.9 [degF] Dr. Monika Venegas MD Work Phone: [facility] 11-07-2024 11:07-0400 Body weight [address] Monika Venegas MD Work Phone: [facility] 11-07-2024 10:59-0400 Body mass index (BMI) [Ratio] 24 kg/m2 Dr. Monika Venegas MD Work Phone: [facility] 11-07-2024 10:59-0400 Body weight [address] Monika Venegas MD Work Phone: [facility] 11-07-2024 10:52-0400 Body temperature 98.7 [degF] Dr. Monika Venegas MD Work Phone: [facility] 09-27-2024 13:05-0400 Diastolic blood pressure 64 mm[Hg] Dr. Monika Venegas MD Work Phone: [facility] 09-27-2024 13:05-0400 Heart rate 51 /min Dr. Monika Venegas MD Work Phone: [facility] 09-27-2024 13:05-0400 Respiratory rate 16 /min Dr. Monika Venegas MD Work Phone: [facility] 09-27-2024 13:05-0400 SaO2% (BldA) [Mass fraction] 98 % Dr. Monika Venegas MD Work Phone: [facility] 09-27-2024 13:05-0400 Systolic blood pressure 180 mm[Hg] Dr. Monika Venegas MD Work Phone: [facility] 09-27-2024 09:20-0400 Body height 142.[address] Monika Venegas MD Work Phone: [facility] 09-27-2024 09:20-0400 Body mass index (BMI) [Ratio] 24.8 kg/m2 Dr. Monika Venegas MD Work Phone: [facility] 09-27-2024 09:20-0400 Body temperature 98 [degF] Dr. Monika Venegas MD Work Phone: [facility] 09-27-2024 09:20-0400 Body weight 50.[address] Monika Venegas MD Work Phone: [facility] 07-11-2024 11:09-0500 Body mass index (BMI) [Ratio] 24.98 kg/m2 Andrew Bueno MD Work Phone: [facility] 07-11-2024 11:09-0500 Body temperature 97.5 [degF] Andrew Bueno MD Work Phone: [facility] 07-11-2024 11:09-0500 Body weight 50.53 kg Andrew Bueno MD Work Phone: [facility] 07-11-2024 11:09-0500 Diastolic blood pressure 70 mm[Hg] Andrew Bueno MD Work Phone: [facility] Comment on above: manual 07-11-2024 11:09-0500 Heart rate 57 /min Andrew Bueno MD Work Phone: [facility] 07-11-2024 11:09-0500 Respiratory rate 16 /min Andrew Bueno MD Work Phone: [facility] 07-11-2024 11:09-0500 SaO2% (BldA) [Mass fraction] 97 % Andrew Bueno MD Work Phone: [facility] 07-11-2024 11:09-0500 Systolic blood pressure 162 mm[Hg] Andrew Bueno MD Work Phone: [facility] Comment on above: manual 03-14-2024 15:48-0400 Body mass index (BMI) [Ratio] 25.18 kg/m2 Andrew Bueno MD Work Phone: [facility] 03-14-2024 15:48-0400 Body temperature 97.5 [degF] Andrew Bueno MD Work Phone: [facility] 03-14-2024 15:48-0400 Body weight 50.94 kg Andrew Bueno MD Work Phone: [facility] 03-14-2024 15:48-0400 Diastolic blood pressure 68 mm[Hg] Andrew Bueno MD Work Phone: [facility] 03-14-2024 15:48-0400 Heart rate 56 /min Andrew Bueno MD Work Phone: [facility] 03-14-2024 15:48-0400 Respiratory rate 16 /min Andrew Bueno MD Work Phone: [facility] 03-14-2024 15:48-0400 SaO2% (BldA) [Mass fraction] 98 % Andrew Bueno MD Work Phone: [facility] 03-14-2024 15:48-0400 Systolic blood pressure 140 mm[Hg] Andrew Bueno MD Work Phone: [facility] 03-14-2024 13:56-0400 Diastolic blood pressure 87 mm[Hg] Andrew Bueno MD Work Phone: [facility] 03-14-2024 13:56-0400 Heart rate 55 /min Andrew Bueno MD Work Phone: [facility] 03-14-2024 13:56-0400 Systolic blood pressure 220 mm[Hg] Andrwe Bueno MD Work Phone: [facility] 11-29-2023 15:40-0400 Body mass index (BMI) [Ratio] 26.21 kg/m2 Andrew Bueno MD Work Phone: [facility] 11-29-2023 15:40-0400 Body temperature 97.39 [degF] Andrew Bueno MD Work Phone: [facility] 11-29-2023 15:40-0400 Body weight 53.02 kg Andrew Bueno MD Work Phone: [facility] 11-29-2023 15:40-0400 Diastolic blood pressure 60 mm[Hg] Andrew Bueno MD Work Phone: [facility] 11-29-2023 15:40-0400 Heart rate 56 /min Andrew Bueno MD Work Phone: [facility] 11-29-2023 15:40-0400 Respiratory rate 16 /min Andrew Bueno MD Work Phone: [facility] 11-29-2023 15:40-0400 SaO2% (BldA) [Mass fraction] 98 % Andrew Bueno MD Work Phone: [facility] 11-29-2023 15:40-0400 Systolic blood pressure 128 mm[Hg] Andrew Bueno MD Work Phone: [facility] 11-29-2023 13:38-0400 Diastolic blood pressure 77 mm[Hg] Andrew Bueno MD Work Phone: [facility] 11-29-2023 13:38-0400 Heart rate 58 /min Andrew Bueno MD Work Phone: [facility] 11-29-2023 13:38-0400 Systolic blood pressure 199 mm[Hg] Andrew Bueno MD Work Phone: [facility] 08-18-2023 13:25-0400 Diastolic blood pressure 92 mm[Hg] Kristine Salts [employer]WORK SPECIALIST Work Phone: [facility] 08-18-2023 13:25-0400 Heart rate 66 /min Kristine Salts CEMENTING [employer] MATERIAL OPERATOR-INTERNET NETWORK SPECIALIST Work Phone: [facility] 08-18-2023 13:25-0400 Systolic blood pressure 202 mm[Hg] Kristine Salts C[employer]ING [employer] MATERIAL OPERATOR-INTERNET NETWORK SPECIALIST Work Phone: [facility] 07-19-2023 13:50-0500 Body height 142.[address] Monika Venegas Work Phone: [facility] 07-19-2023 13:49-0500 Body mass index (BMI) [Ratio] 26.4 kg/m2 Dr. Monika Venegas Work Phone: [facility] 07-19-2023 13:49-0500 Body weight 53.[address] Monika Venegas Work Phone: [facility] 07-19-2023 13:49-0500 Diastolic blood pressure 70 mm[Hg] Dr. Monika Venegas Work Phone: [facility] 07-19-2023 13:49-0500 Heart rate 63 /min Dr. Monika Venegas Work Phone: [facility] 07-19-2023 13:49-0500 Respiratory rate 18 /min Dr. Monika Venegas Work Phone: [facility] 07-19-2023 13:49-0500 SaO2% (BldA) [Mass fraction] 99 % Dr. Monika Venegas Work Phone: [facility] 07-19-2023 13:49-0500 Systolic blood pressure 179 mm[Hg] Dr. Monika Venegas Work Phone: [facility] 05-19-2023 14:01-0500 Body mass index (BMI) [Ratio] 27.89 kg/m2 Andrew Bueno MD Work Phone: [facility] 05-19-2023 14:01-0500 Body temperature 97.2 [degF] Andrew Bueno MD Work Phone: [facility] 05-19-2023 14:01-0500 Body weight 56.43 kg Andrew Bueno MD Work Phone: [facility] 05-19-2023 14:01-0500 Diastolic blood pressure 70 mm[Hg] Andrew Bueno MD Work Phone: [facility] 05-19-2023 14:01-0500 Heart rate 68 /min Andrew Bueno MD Work Phone: [facility] 05-19-2023 14:01-0500 Respiratory rate 16 /min Andrew Bueno MD Work Phone: [facility] 05-19-2023 14:01-0500 SaO2% (BldA) [Mass fraction] 98 % Andrew Bueno MD Work Phone: [facility] 05-19-2023 14:01-0500 Systolic blood pressure 142 mm[Hg] Andrew Bueno MD Work Phone: [facility] 03-15-2023 10:29-0400 Body mass index (BMI) [Ratio] 26.9 kg/m2 Andrew Bueno MD Work Phone: 6(612)239-195244 [address] 03-15-2023 10:29-0400 Body temperature 97.9 [degF] Andrew Bueno MD Work Phone: 8(902)976-802344 [address] 03-15-2023 10:29-0400 Body weight 54.43 kg Andrew Bueno MD Work Phone: [facility] 03-15-2023 10:29-0400 Diastolic blood pressure 68 mm[Hg] Andrew Bueno MD Work Phone: [facility] 03-15-2023 10:29-0400 Heart rate 62 /min Andrew Bueno MD Work Phone: [facility] 03-15-2023 10:29-0400 Respiratory rate 16 /min Andrew Bueno MD Work Phone: [facility] 03-15-2023 10:29-0400 SaO2% (BldA) [Mass fraction] 97 % Andrew Bueno MD Work Phone: [facility] 03-15-2023 10:29-0400 Systolic blood pressure 160 mm[Hg] Andrew Bueno MD Work Phone: [facility] 03-08-2023 10:08-0400 Body mass index (BMI) [Ratio] 27.06 kg/m2 Ameya Singh MD Work Phone: [facility] 03-08-2023 10:08-0400 Body temperature 97.9 [degF] Ameya Singh MD Work Phone: 1(772)476-549886 [place] [address] 03-08-2023 10:08-0400 Body weight 54.75 kg Ameya Singh MD Work Phone: 4(579)140-437086 [place] [address] 03-08-2023 10:08-0400 Diastolic blood pressure 66 mm[Hg] Ameya Singh MD Work Phone: 6(549)854-388786 [place] [address] 03-08-2023 10:08-0400 Heart rate 70 /min Ameya Singh MD Work Phone: 5(987)795-691786 [place] [address] 03-08-2023 10:08-0400 Respiratory rate 16 /min Ameya Singh MD Work Phone: 9(589)536-048586 [place] [address] 03-08-2023 10:08-0400 SaO2% (BldA) [Mass fraction] 98 % Ameya Singh MD Work Phone: 3(839)148-503186 [place] [address] 03-08-2023 10:08-0400 Systolic blood pressure 152 mm[Hg] Ameya Singh MD Work Phone: 7(184)879-580686 [place] [address] 03-01-2023 09:59-0400 Body mass index (BMI) [Ratio] 27.15 kg/m2 Andrew Bueno MD Work Phone: 2(224)990-813686 [place] [address] 03-01-2023 09:59-0400 Body temperature 97.59 [degF] Andrew Bueno MD Work Phone: 3(122)294-156886 [place] [address] 03-01-2023 09:59-0400 Body weight 54.93 kg Andrew Bueno MD Work Phone: 1(753)086-845386 [place] [address] 03-01-2023 09:59-0400 Diastolic blood pressure 62 mm[Hg] Andrew Bueno MD Work Phone: [facility] 03-01-2023 09:59-0400 Heart rate 69 /min Andrew Bueno MD Work Phone: 3(858)431-734186 [place] [address] 03-01-2023 09:59-0400 Respiratory rate 16 /min Andrew Bueno MD Work Phone: 6(532)387-744586 [place] [address] 03-01-2023 09:59-0400 SaO2% (BldA) [Mass fraction] 99 % Andrew Bueno MD Work Phone: 8(382)958-938786 [place] [address] 03-01-2023 09:59-0400 Systolic blood pressure 118 mm[Hg] Andrew Bueno MD Work Phone: 6(811)791-851286 [place] [address] 02-15-2023 09:35-0400 Body mass index (BMI) [Ratio] 26.72 kg/m2 Andrew Bueno MD Work Phone: 6(293)796-810486 [place] [address] 02-15-2023 09:35-0400 Body temperature 97.81 [degF] Andrew Bueno MD Work Phone: 0(597)894-756586 [place] [address] 02-15-2023 09:35-0400 Body weight 54.07 kg Andrew Bueno MD Work Phone: 2(279)453-795486 [place] [address] 02-15-2023 09:35-0400 Diastolic blood pressure 62 mm[Hg] Andrew Bueno MD Work Phone: 3(994)678-448386 [place] [address] 02-15-2023 09:35-0400 Heart rate 66 /min Andrew Bueno MD Work Phone: 6(958)182-922086 [place] [address] 02-15-2023 09:35-0400 Respiratory rate 16 /min Andrew Bueno MD Work Phone: 5(334)644-815786 [place] [address] 02-15-2023 09:35-0400 SaO2% (BldA) [Mass fraction] 97 % Andrew Bueno MD Work Phone: [facility] 02-15-2023 09:35-0400 Systolic blood pressure 148 mm[Hg] Andrew Bueno MD Work Phone: [facility] 02-08-2023 10:31-0400 Body mass index (BMI) [Ratio] 27.33 kg/m2 Andrew Bueno MD Work Phone: [facility] 02-08-2023 10:31-0400 Body temperature 97.7 [degF] Andrew Bueno MD Work Phone: 7(600)610-727544 [address] 02-08-2023 10:31-0400 Body weight 55.29 kg Andrew Bueno MD Work Phone: 0(863)619-798344 [address] 02-08-2023 10:31-0400 Diastolic blood pressure 72 mm[Hg] Andrew Bueno MD Work Phone: [facility] 02-08-2023 10:31-0400 Heart rate 69 /min Andrew Bueno MD Work Phone: [facility] 02-08-2023 10:31-0400 Respiratory rate 16 /min Andrew Bueno MD Work Phone: [facility] 02-08-2023 10:31-0400 SaO2% (BldA) [Mass fraction] 98 % Andrew Bueno MD Work Phone: [facility] 02-08-2023 10:31-0400 Systolic blood pressure 150 mm[Hg] nAdrew Bueno MD Work Phone: [facility] 01-19-2023 10:59-0400 Body mass index (BMI) [Ratio] 26.3 kg/m2 Andrew Bueno MD Work Phone: [facility] 01-19-2023 10:59-0400 Body temperature 98.1 [degF] Andrew Bueno MD Work Phone: [facility] 01-19-2023 10:59-0400 Body weight 53.21 kg Andrew Bueno MD Work Phone: [facility] 01-19-2023 10:59-0400 Diastolic blood pressure 68 mm[Hg] Andrew Bueno MD Work Phone: 3(889)020-150844 [address] 01-19-2023 10:59-0400 Heart rate 65 /min Andrew Bueno MD Work Phone: 5(137)280-022286 [place] [address] 01-19-2023 10:59-0400 Respiratory rate 16 /min Andrew Bueno MD Work Phone: 3(224)391-585144 [address] 01-19-2023 10:59-0400 SaO2% (BldA) [Mass fraction] 98 % Andrew Bueno MD Work Phone: [facility] 01-19-2023 10:59-0400 Systolic blood pressure 154 mm[Hg] Andrew Bueno MD Work Phone: [facility] 01-13-2023 13:14-0400 Body height 142.[address] Monika Venegas Work Phone: [facility] 01-13-2023 13:14-0400 Body mass index (BMI) [Ratio] 26.2 kg/m2 Dr. Monika Venegas Work Phone: [facility] 01-13-2023 13:14-0400 Body weight 53.[address] Monika Venegas Work Phone: [facility] 01-13-2023 13:14-0400 Diastolic blood pressure 67 mm[Hg] Dr. Monika Venegas Work Phone: [facility] 01-13-2023 13:14-0400 Heart rate 70 /min Dr. Monika Venegas Work Phone: [facility] 01-13-2023 13:14-0400 SaO2% (BldA) [Mass fraction] 99 % Dr. Monika Venegas Work Phone: [facility] 01-13-2023 13:14-0400 Systolic blood pressure 130 mm[Hg] Dr. Monika Venegas Work Phone: [facility] 01-01-2023 07:46-0400 Body temperature 97.6 [degF] Dr. Monika Venegas Work Phone: [facility] 01-01-2023 07:46-0400 Diastolic blood pressure 43 mm[Hg] Dr. Monika Venegas Work Phone: 0(001)740-670068 [address] 01-01-2023 07:46-0400 Heart rate 71 /min Dr. Monika Venegas Work Phone: 9(427)329-512007 [place] [address] 01-01-2023 07:46-0400 Respiratory rate 16 /min Dr. Monika Venegas Work Phone: [facility] 01-01-2023 07:46-0400 SaO2% (BldA) [Mass fraction] 97 % Dr. Monika Venegas Work Phone: [facility] 01-01-2023 07:46-0400 Systolic blood pressure 118 mm[Hg] Dr. Monika Venegas Work Phone: [facility] 12-31-2022 20:30-0400 Body mass index (BMI) [Ratio] 27.1 kg/m2 Dr. Monika Venegas Work Phone: [facility] 12-31-2022 05:15-0400 Body weight [address] Monika Venegas Work Phone: [facility] 12-24-2022 15:11-0400 Body weight 55.[address] Monika Venegas Work Phone: [facility] 12-24-2022 13:54-0400 Body temperature 97.7 [degF] Dr. Monika Venegas Work Phone: [facility] 12-24-2022 13:54-0400 Diastolic blood pressure 52 mm[Hg] Dr. Monika Venegas Work Phone: [facility] 12-24-2022 13:54-0400 Heart rate 79 /min Dr. Monika Venegas Work Phone: [facility] 12-24-2022 13:54-0400 Respiratory rate 18 /min Dr. Monika Venegas Work Phone: [facility] 12-24-2022 13:54-0400 SaO2% (BldA) [Mass fraction] 95 % Dr. Monika Venegas Work Phone: [facility] 12-24-2022 13:54-0400 Systolic blood pressure 115 mm[Hg] Dr. Monika Venegas Work Phone: [facility] 12-23-2022 18:15-0400 Body mass index (BMI) [Ratio] 27.4 kg/m2 Dr. Monika Venegas Work Phone: [facility] 12-23-2022 14:39-0400 Body mass index (BMI) [Ratio] 26.3 kg/m2 Dr. Monika Venegas Work Phone: [facility] 12-23-2022 07:32-0400 Body temperature 97.5 [degF] Dr. Monika Venegas Work Phone: [facility] 12-23-2022 07:32-0400 Diastolic blood pressure 46 mm[Hg] Dr. Monika Venegas Work Phone: [facility] 12-23-2022 07:32-0400 Heart rate 53 /min Dr. Monika Venegas Work Phone: [facility] 12-23-2022 07:32-0400 Respiratory rate 18 /min Dr. Monika Venegas Work Phone: [facility] 12-23-2022 07:32-0400 SaO2% (BldA) [Mass fraction] 97 % Dr. Monika Venegas Work Phone: [facility] 12-23-2022 07:32-0400 Systolic blood pressure 101 mm[Hg] Dr. Monika Venegas Work Phone: [facility] 12-22-2022 14:14-0400 Body height 144.[address] Monika Venegas Work Phone: [facility] 12-22-2022 14:14-0400 Body weight 55.[address] Monika Venegas Work Phone: [facility] 10-09-2022 12:16-0400 Body height 143.5 cm Shaye Weston CEMENTING BULK MATERIAL OPERATOR-INTERNET NETWORK SPECIALIST Work Phone: [facility] 10-09-2022 12:16-0400 Diastolic blood pressure 61 mm[Hg] Shaye Weston CEMENTING BULK MATERIAL OPERATOR-INTERNET NETWORK SPECIALIST Work Phone: [facility] 10-09-2022 12:16-0400 Heart rate 63 /min Shaye Weston CEMENTING BULK MATERIAL OPERATOR-INTERNET NETWORK SPECIALIST Work Phone: [facility] 10-09-2022 12:16-0400 Systolic blood pressure 190 mm[Hg] Shaye Weston CEMENTING BULK MATERIAL OPERATOR-INTERNET NETWORK SPECIALIST Work Phone: [facility] 10-08-2022 11:24-0400 Body height 142.2 cm Qian Randle MD Work Phone: [facility] 10-08-2022 11:24-0400 Body mass index (BMI) [Ratio] 27.31 kg/m2 Qian Randle MD Work Phone: [facility] 10-08-2022 11:24-0400 Body temperature 98.4 [degF] Qian Randle MD Work Phone: [facility] 10-08-2022 11:24-0400 Body weight 55.25 kg Qian Randle MD Work Phone: [facility] 10-08-2022 11:24-0400 Diastolic blood pressure 80 mm[Hg] Qian Randle MD Work Phone: [facility] 10-08-2022 11:24-0400 Heart rate 55 /min Qian Randle MD Work Phone: [facility] 10-08-2022 11:24-0400 Respiratory rate 16 /min Qian Randle MD Work Phone: [facility] 10-08-2022 11:24-0400 SaO2% (BldA) [Mass fraction] 99 % Qian Randle MD Work Phone: [facility] 10-08-2022 11:24-0400 Systolic blood pressure 128 mm[Hg] Qian Randle MD Work Phone: [facility] 09-30-2022 11:21-0400 Diastolic blood pressure 72 mm[Hg] Ernie Kincaid MD Work Phone: [facility] Comment on above: manual providers aware 09-30-2022 11:21-0400 Systolic blood pressure 196 mm[Hg] Ernie Kincaid MD Work Phone: [facility] Comment on above: manual providers aware 09-30-2022 11:17-0400 Body height 142.2 cm Ernie Kincaid MD Work Phone: [facility] 09-30-2022 11:17-0400 Body mass index (BMI) [Ratio] 26.97 kg/m2 Ernie Kincaid MD Work Phone: [facility] 09-30-2022 11:17-0400 Body temperature 99.39 [degF] Ernie Kincaid MD Work Phone: [facility] 09-30-2022 11:17-0400 Body weight 54.57 kg Ernie Kincaid MD Work Phone: [facility] 09-30-2022 11:17-0400 Heart rate 62 /min Ernie Kincaid MD Work Phone: [facility] 09-30-2022 11:17-0400 Respiratory rate 16 /min Ernie Kincaid MD Work Phone: [facility] 09-30-2022 11:17-0400 SaO2% (BldA) [Mass fraction] 96 % Ernie Kincaid MD Work Phone: [facility] 09-15-2022 13:37-0400 Body height 142.[address] Monika Venegas Work Phone: [facility] 09-15-2022 13:37-0400 Body mass index (BMI) [Ratio] 27.3 kg/m2 Dr. Monika Venegas Work Phone: [facility] 09-15-2022 13:37-0400 Body temperature 97.4 [degF] Dr. Monika Venegas Work Phone: [facility] 09-15-2022 13:37-0400 Body weight 55.[address] Monika Venegas Work Phone: [facility] 09-15-2022 13:37-0400 Diastolic blood pressure 66 mm[Hg] Dr. Monika Venegas Work Phone: [facility] 09-15-2022 13:37-0400 Heart rate 53 /min Dr. Monika Venegas Work Phone: [facility] 09-15-2022 13:37-0400 Respiratory rate 17 /min Dr. Monika Venegas Work Phone: [facility] 09-15-2022 13:37-0400 SaO2% (BldA) [Mass fraction] 99 % Dr. Monika Venegas Work Phone: [facility] 09-15-2022 13:37-0400 Systolic blood pressure 177 mm[Hg] Dr. Monika Venegas Work Phone: [facility] Encounters Encounter Date Encounter Type Care Provider Facility Start: 12-03-2024 Evaluation and manag ement of inpatient Dr. Darnell Gonzalez -[facility] 3 Work Phone: Start: 12-03-[address] Monika Venegas MD Work Phone: -[facility] 3 Start: 11-27-2024 Non-patient / Non-visit Dr. Morro Arias [facility] Work Phone: Start: 11-26-2024 Non-patient / Non-visit Dr. Morro Arias [facility] Work Phone: Start: 11-22-2024 Non-patient / Non-visit Dr. Morro Arias [facility] Work Phone: Start: 2024 Non-patient / Non-visit Dr. Morro Arias [facility] Work Phone: Start: 11-19-2024 Non-patient / Non-visit Dr. Morro Arias [facility] Work Phone: Start: 11-16-2024 Non-patient / Non-visit Dr. Morro Arias [facility] Work Phone: Start: 11-15-2024 Non-patient / Non-visit Dr. Morro Arias [facility] Work Phone: Start: 11-13-2024 Non-patient / Non-visit Dr. Morro Arias [facility] Work Phone: Start: 11-12-2024 ambulatory Jo-Ann Arias Facility:[facility] Start: 11-12-2024 End: 11-29-2024 Evaluation and management of inpatient Dr. Jo-Ann Arias DO -Rehab Unit Work Phone: Start: 11-07-2024 End: 11-12-2024 Evaluation and management of inpatient Ignacio De La Garza MD, PhD Work Phone: [id number] Comment on above: Epidural hematoma Start: 11-07-2024 ambulatory Monika S Jolliff Facility: [facility] Start: 11-07-2024 End: 11-07-2024 Emergency department patient visit Dr. Monika Venegas MD Work Phone: -Emergency Department Work Phone: Start: 09-27-2024 End: 09-27-2024 Emergency department patient visit Dr. Monika Venegas MD Work Phone: -Emergency Department Work Phone: Start: 07-24-2024 End: 07-24-[address] Nati Olvera Work Phone: Start: 07-24-2024 End: 07-24-2024 ambulatory Monika S Jolliff Facility:[facility] Start: 07-11-2024 End: 07-11-2024 Office outpatient visit 25 minutes Andrew Bueno MD Work Phone: Department of Radiation Oncology at [facility] Comment on above: Cancer of cerebral m eninges (Primary Dx); Skin change; Alopecia; S/P radiation therapy Start: 07-11-2024 ambulatory MONIKA S JOLLIFF Facility: [facility] Start: 07-11-2024 End: 07-11-2024 Subsequent hospital visit by physician Kristine ABREU Work Phone: [facility] Comment on above: Arrived Start: 07-11-2024 ambulatory MONIKA S JOLLIFF Facility: [facility] Start: 06-19-2024 End: 06-19-[address] Nati Olvera, Phy Office 3rd Flr Start: 06-19-2024 End: 06-19-2024 ambulatory Monika S Jolliff Facility:[facility] Start: 04-17-2024 End: 04-17-2024 ambulatory Monika S Jolliff Facility:[facility] Start: 03-14-2024 End: 03-14-2024 Office outpatient visit 25 minutes Andrew Bueno MD Work Phone: Department of Radiation Oncology at [facility] Comment on above: Cancer of cerebral m eninges (Primary Dx) Start: 03-14-2024 ambulatory MONIKA S JOLLIFF Facility: [facility] Start: 03-14-2024 End: 03-14-2024 Subsequent hospital visit by physician Andrew Bueno MD Work Phone: Imaging at [facility] Comment on above: Arrived Start: 03-14-2024 ambulatory ANDREW BUENO Facilit y:[facility] Start: 03-14-2024 End: 03-14-2024 Subsequent hospital visit by physician Andrew Bueno MD Work Phone: Imaging [facility] Comment on above: Arrived Start: 03-09-2024 End: 03-09-2024 ambulatory Monika S Jolliff Facility:[facility] Start: 02-24-2024 End: 02-24-2024 ambulatory Monika S Jolliff Facility:[facility] Start: 01-17-2024 End: 01-17-2024 ambulatory Monika S Jolliff Facility:[facility] Start: 01-13-2024 End: 01-13-2024 ambulatory Monika S Jolliff Facility:[facility] Start: 12-16-2023 End: 12-16-2023 ambulatory Monika S Jolliff Facility:[facility] Start: 11-29-2023 End: 11-29-2023 Office outpatient visit 25 minutes Andrew Bueno MD Work Phone: Department of Radiation Oncology at [facility] Comment on above: Cancer of cerebral m eninges (Primary Dx); Neuroendocrine cancer Start: 11-29-2023 ambulatory ANDREW BUENO Facilit y:[facility] Start: 11-29-2023 End: 11-29-2023 Subsequent hospital visit by physician Andrew Bueno MD Work Phone: Imaging at [facility] Comment on above: Arrived Start: 08-18-2023 End: 08-18-2023 Subsequent hospital visit by physician Kristine ABREU Work Phone: Imaging at [facility] Comment on above: Arrived Start: 07-22-[address] Monika hameed Work Phone: [facility]-Physical Therapy Work Phone: Start: 07-19-2023 End: 07-19-[address] Monika Venegas Work Phone: [facility] Work Phone: Start: 07-19-2023 End: 07-19-[address] Monika Venegas Work Phone: [facility] Work Phone: Start: 05-19-2023 End: 05-19-2023 Office outpatient visit 25 minutes Andrew Bueno MD Work Phone: Department of Radiation Oncology at [facility] Comment on above: Cancer of cerebral m eninges (Primary Dx) Start: 03-16-2023 End: 03-16-2023 Subsequent hospital visit by physician [facility] Department of Radiation Oncology at [facility] Comment on above: Arrived Start: 03-15-2023 End: 03-28-2023 Patient encounter procedure Andrew Bueno MD Work Phone: Department of Radiation Oncology at [facility] Comment on above: Cancer of cerebral m eninges (Primary Dx) Start: 03-14-2023 End: 03-14-2023 Subsequent hospital visit by physician [facility] Department of Radiation Oncology at [facility] Comment on above: Arrived Start: 03-10-2023 End: 03-10-2023 Subsequent hospital visit by physician [facility] Department of Radiation Oncology at [facility] Comment on above: Arrived Start: 03-08-2023 End: 03-08-2023 Patient encounter procedure Andrew Bueno MD Work Phone: Department of Radiation Oncology at [facility] Comment on above: Neuroendocrine cance r (Primary Dx) Start: 03-04-2023 End: 03-04-2023 Subsequent hospital visit by physician [facility] 1 Department of Radiation Oncology at [facility] Comment on above: Arrived Start: 03-03-2023 End: 03-03-2023 [facility] Department of Radiation Oncology at [facility] Comment on above: Arrived Start: 03-02-2023 End: 03-02-2023 Subsequent hospital visit by physician [facility] 1 Department of Radiation Oncology at [facility] Comment on above: Arrived Start: 03-01-2023 End: 03-29-2023 Patient encounter procedure Andrew Bueno MD Work Phone: Department of Radiation Oncology at [facility] Comment on above: Cancer of cerebral m eninges (Primary Dx) Start: 03-01-2023 End: 03-01-2023 Subsequent hospital visit by physician [facility] 1 Department of Radiation Oncology at [facility] Comment on above: Arrived Start: 02-28-2023 End: 02-28-2023 Subsequent hospital visit by physician [facility] Department of Radiation Oncology at [facility] Comment on above: Arrived Start: 02-24-2023 End: 02-24-2023 Subsequent hospital visit by physician [facility] Department of Radiation Oncology at [facility] Comment on above: Arrived Start: 02-23-2023 End: 02-23-2023 Subsequent hospital visit by physician [facility] 1 Department of Radiation Oncology at [facility] Comment on above: Arrived Start: 02-18-2023 End: 02-18-2023 Subsequent hospital visit by physician [facility] 1 Department of Radiation Oncology at [facility] Comment on above: Arrived Start: 02-17-2023 End: 02-17-2023 Subsequent hospital visit by physician [facility] 1 Department of Radiation Oncology at [facility] Comment on above: Arrived Start: 02-16-2023 End: 02-16-2023 [facility] Department of Radiation Oncology at [facility] Comment on above: Arrived Start: 02-15-2023 End: 03-16-2023 Patient encounter procedure Andrew Bueno MD Work Phone: Department of Radiation Oncology at [facility] Comment on above: Cancer of cerebral m eninges (Primary Dx) Start: 02-15-2023 End: 02-15-2023 Subsequent hospital visit by physician [facility] 1 Department of Radiation Oncology at [facility] Comment on above: Arrived Start: 02-14-2023 End: 02-14-2023 Subsequent hospital visit by physician [facility] John [facility] 1 Department of Radiation Oncology at [facility] Comment on above: Arrived Start: 02-11-2023 End: 02-11-2023 Subsequent hospital visit by physician [facility] 1 Department of Radiation Oncology at [facility] Comment on above: Arrived Start: 02-10-2023 End: 02-10-2023 Subsequent hospital visit by physician [facility] John [facility] 1 Department of Radiation Oncology at [facility] Comment on above: Arrived Start: 02-09-2023 End: 02-09-2023 Subsequent hospital visit by physician [facility] 1 Department of Radiation Oncology at [facility] Comment on above: Arrived Start: 02-08-2023 End: 03-08-2023 Patient encounter procedure Andrew Bueno MD Work Phone: Department of Radiation Oncology at [facility] Comment on above: Cancer of cerebral m eninges (Primary Dx) Start: 02-08-2023 End: 02-08-2023 Subsequent hospital visit by physician T[facility] John [facility] 1 Department of Radiation Oncology at [facility] Comment on above: Arrived Start: 02-04-2023 End: 02-04-2023 Subsequent hospital visit by physician T[facility] John [facility] 1 Department of Radiation Oncology at [facility] Comment on above: Arrived Start: 02-03-2023 End: 02-03-2023 Subsequent hospital visit by physician T[facility] John [facility] 1 Department of Radiation Oncology at [facility] Comment on above: Arrived Start: 02-02-2023 End: 02-02-2023 Subsequent hospital visit by physician Tonia John [facility] 1 Department of Radiation Oncology at [facility] Comment on above: Arrived Start: 02-01-2023 End: 02-01-2023 Subsequent hospital visit by physician Andrew Bueno MD Work Phone: Department of Radiation Oncology at [facility] Comment on above: Arrived Start: [...] 01-18-[address] Monika Venegas Work Phone: [facility] Work Phone: Start: 01-18-2023 End: 01-18-[address] Monika Venegas Work Phone: [facility] Start: 01-13-2023 End: 01-13-[address] Monika Venegas Work Phone: [facility] Work Phone: Start: 01-12-2023 End: 01-12-2023 Subsequent hospital visit by physician Andrew Bueno MD Work Phone: [facility] Comment on above: Arrived Start: 01-12-2023 End: 01-12-2023 Subsequent hospital visit by physician Andrew Bueno MD Work Phone: Department of Radiology Comment on above: Arrived Start: 12-29-2022 Non-patient / Non-visit Dr. Joni Venegas Work Phone: [facility] Work Phone: Start: 12-27-2022 Non-patient / Non-visit Dr. Joni Venegas Work Phone: [facility] Work Phone: Start: 12-24-2022 Non-patient / Non-visit Dr. Joni Venegas Work Phone: [facility] Work Phone: Start: 12-23-2022 End: 12-24-2022 Evaluation and management of inpatient Dr. Monika Venegas Work Phone: [facility]-Progressive Care Unit Work Phone: Start: 12-23-2022 End: 12-23-2022 Non-patient / Non-visit Dr. Monika Venegas Work Phone: [facility] Work Phone: Start: 12-23-2022 Non-patient / Non-visit Dr. Joni Venegas Work Phone: [facility] Work Phone: Start: 12-21-2022 Non-patient / Non-visit Dr. Joni Venegas Work Phone: [facility] Work Phone: Start: 12-20-2022 Non-patient / Non-visit Dr. Joni Venegas Work Phone: [facility] Work Phone: Start: 12-17-2022 Non-patient / Non-visit Dr. Joni Venegas Work Phone: [facility] Work Phone: Start: 12-16-2022 Non-patient / Non-visit Dr. Joni Venegas Work Phone: [facility] Work Phone: Start: 12-13-2022 Non-patient / Non-visit Dr. Joni Venegas Work Phone: [facility] Work Phone: Start: 12-10-2022 Non-patient / Non-visit Dr. Joni Venegas Work Phone: [facility] Work Phone: Start: 12-08-2022 Non-patient / Non-visit Dr. Joni Venegas Work Phone: [facility] Work Phone: Start: 12-07-2022 Non-patient / Non-visit Dr. Joni Venegas Work Phone: [facility] Work Phone: Start: 12-06-2022 End: 01-01-2023 Evaluation and management of inpatient Dr. Monika Venegas Work Phone: [facility]-Rehab Unit Work Phone: Start: 11-09-2022 End: 11-09-[address] Monika Venegas Work Phone: [facility] Work Phone: Start: 11-09-2022 End: 11-09-[address] Monika Venegas Work Phone: [facility]-Laboratory Start: 10-29-2022 End: 10-29-[address] Monika Venegas Work Phone: [facility] Work Phone: Start: 10-29-2022 End: 10-29-[address] Monika Venegas Work Phone: [facility]-Cat Scan, [facility] Start: 10-09-2022 End: 10-09-2022 Subsequent hospital visit by physician Shaye Weston CEMENTING BULK MATERIAL OPERATOR-INTERNET NETWORK SPECIALIST Work Phone: [facility] Comment on above: Arrived Start: 10-08-2022 End: 10-08-2022 Subsequent hospital visit by physician Qian Randle MD Work Phone: Imaging [facility] Comment on above: Arrived Start: 10-08-2022 End: 10-08-2022 Office consultation new/estab patient 60 min Qian Randle MD Work Phone: Pre-Procedure Evaluation and Assessment [facility] Comment on above: Preop exam for inter nal medicine (Primary Dx); Skull mass; Essential hypertension; Hyperlipidemia, unspecified hyperlipidemia type Start: 10-08-2022 End: 10-08-2022 Patient encounter status Qian Randle MD Work Phone: [facility] Start: 10-04-2022 End: 10-04-2022 Patient encounter procedure [facility] Scan So Outside Imaging Second Opinion Start: 09-30-2022 End: 09-30-2022 Subsequent hospital visit by physician Joanne Mitchell APRN-INTERNET NETWORK SPECIALIST Work Phone: Outside Imaging Start: 09-30-2022 End: 09-30-[address] Monika Venegas Work Phone: [facility] Work Phone: Start: 09-30-2022 End: 09-30-[address] Monika Venegas Work Phone: [facility] Start: 09-30-2022 End: 09-30-2022 Office outpatient new 45 minutes Ernie Kincaid MD Work Phone: Division of Neuro Surgery at [facility] Comment on above: Skull mass (Primary Dx) Start: 09-28-2022 End: 09-28-[address] Monika Venegas Work Phone: [facility] Start: 09-23-2022 End: 09-23-[address] Monika Venegas Work Phone: [facility] Work Phone: Start: 09-23-2022 End: 09-23-[address] Mon[facility] Venegas [facility] Start: 09-21-2022 End: 09-21-[address] Monika Venegas Work Phone: [facility] Work Phone: Start: 09-21-2022 End: 09-21-[address] Monika Venegas Work Phone: [facility] Start: 09-15-2022 End: 09-15-[address] Monika Venegas Work Phone: [facility] Start: 05-14-2022 End: 05-14-2022 ambulatory [facility] Work Phone: Start: 05-14-2022 End: 05-14-2022 Patient encounter procedure [facility]-Outpatient [facility] Start: 03-23-2022 End: 03-23-2022 ambulatory [facility] Work Phone: Start: 03-23-2022 End: 03-23-2022 Patient encounter procedure [facility] Procedures Date Procedure Procedure Detail Performing [...] Phone: Start: 11-12-2024 Creatinine blood Jl [facility] Work Phone: Start: 11-11-2024 Creatinine blood [facility] Work Phone: Start: 11-10-2024 CARDIAC RHYTHM Other Ot her OT Start: 11-10-2024 End: 11-10-2024 Mri brain brain stem w/o w/contrast material Staci Luna MD Work Phone: Start: 11-10-2024 Creatinine blood [facility] Work Phone: Start: 11-09-2024 GENERAL PROCEDURE Shasha Ferraro [facility] Work Phone: Start: 11-09-2024 Assay of magnesium [facility] Work Phone: Start: 11-09-2024 Hepatic function panel [facility] Work Phone: Start: 11-08-2024 IP CONSULT TO SPEECH THERAPY Jl [facility] Work Phone: Start: 11-07-2024 Drug tst prsmv [...] M GO, IPB, CHM7, HFP #### [facility] ([facility]) [address] [place] [address] Start: 11-07-2024 ALCOHOL (ETHANOL),BLOOD Ignacio De La [...] 10-04-2022 Ct thorax w/contrast material Joanne Mitchell CEMENTING BULK MATERIAL OPERATOR-INTERNET NETWORK SPECIALIST Work Phone: Start: 09-30-2022 CT Abdomen and Pelvis V reyna Mitchell CEMENTING BULK MATERIAL OPERATOR-INTERNET NETWORK SPECIALIST Work Phone: Start: 09-30-2022 CT of chest and abdomen Dr. Monika Venegas Work Phone: Start: 09-23-2022 CT of head with contrast Dr. Monika Venegas Work Phone: Start: 05-14-2022 Screening mammography History of radiation therapy S/P radiation therapy Andrew Bueno MD Work Phone: Plan of Treatment Date Care Activity Detail Author Start: 11-07-2034 Tetanus vaccination TETANUS [facility] Start: 12-03-2024 Thyroid stimulating hormone measurement [facility] Start: 12-03-2024 Verification routine [facility] Start: 12-03-2024 Admission procedure [facility] Start: 12-03-2024 Hospital admission, emergency, from emergency room, medical nature [facility] Start: 12-03-2024 [facility] Start: 12-03-2024 Bacteria identified in Urine by Culture Urine Culture [facility] Start: 11-29-2024 Consultation for treatment [facility] Start: 11-28-2024 Referral to maintenance plumber [facility] Start: 11-28-2024 End: 11-28-2024 Patient encounter procedure 11/28/2024 12:00 PM EDT Office Visit Department of Radiation Oncology at [facility] [place] [id number] [facility] [address] [place] [id number] Andrew Bueno MD [address] [place] [address] Department of Radiation Oncology at [facility] Start: 11-28-2024 Patient discharge [facility] Start: 11-25-2024 [facility] Start: 11-23-2024 Referral to service [facility] Start: 11-14-2024 [facility] Start: 11-14-2024 End: 11-14-2024 Patient encounter procedure Imaging at [facility] Start: 11-13-2024 Application of intermittent pneumatic compression device [facility] Start: 11-13-2024 Recommendation to continue with treatment [facility] Start: 11-13-2024 Speech therapy assessment [facility] Start: 11-12-2024 Recommendation to continue with treatment [facility] Start: 11-12-2024 Admission procedure [facility] Start: 11-12-2024 Measuring intake and output [facility] Start: 11-12-2024 Patient referral to dietitian [facility] Start: 11-12-2024 Vital signs measurements [facility] Start: 11-12-2024 End: 11-12-2024 [facility] Start: 11-07-2024 [facility] Start: 11-07-2024 Oxygen therapy [facility] Start: 11-07-2024 End: 11-07-2024 [facility] Start: 09-27-2024 [facility] Start: 09-27-2024 [facility] Start: 07-11-2024 End: 07-11-2025 MR Brain W contrast IV [facility] Work Phone: Comment on above: 1 Occurrences starti ng 07/11/2024 until 07/11/2024 Expected: 07/11/2024 , Expires: 07/11/2025 Start: 07-11-2024 End: 07-11-2024 Patient encounter procedure Imaging at [facility] Start: 06-14-2024 End: 03-14-2025 MR Brain W contrast IV MRI BRAIN WITH PERFUSION Imaging Routine Cancer of cerebral meninges Expected: 06/14/2024, Expires: 03/14/2025 [facility] Comment on above: Expected: 06/14/2024 , Expires: 03/14/2025 Start: 03-14-2024 End: 03-14-2024 Patient encounter procedure Imaging at [facility] Start: 03-14-2024 End: 03-14-2024 Patient encounter procedure 03/14/2024 9:30 AM EDT Appointment Imaging [facility] [address] [place] [address] Andrew Bueno MD [address] [place] [address] Imaging [facility] Start: 02-05-2024 Influenza vaccination [facility] Start: 12-07-2023 Potassium [Moles/vol ume] in Serum or Plasma POTASSIUM [facility] Start: 11-29-2023 End: 11-28-2024 MR Brain W contrast IV [facility] Comment on above: 1 Occurrences starti ng 11/29/2023 until 11/29/2023 Expected: 11/29/2023 , Expires: 11/28/2024 Start: 11-29-2023 End: 11-28-2024 PT Skull base to mid-thigh NUC PET NEUROENDOCRINE Imaging Routine Cancer of cerebral meninges Neuroendocrine cancer Expected: 11/29/2023, Expires: 11/28/2024 [facility] Comment on above: Expected: 11/29/2023 , Expires: 11/28/2024 Start: 11-29-2023 End: 11-29-2023 Patient encounter procedure Imaging at [facility] Start: 10-09-2023 Potassium [Moles/vol ume] in Serum or Plasma POTASSIUM [facility] Start: 08-23-2023 End: 08-23-2023 Telemedicine consultation with patient 08/23/2023 5:30 PM EDT Telemedicine Department of Radiation Oncology at [facility] [place] [address] [place] [phone] Andrew Bueno MD [address] [place] [address] Department of Radiation Oncology at [facility] Start: 08-18-2023 End: 05-19-2024 MR Brain W contrast IV [facility] Comment on above: Expected: 08/18/2023 , Expires: 05/19/2024 1 Occurrences starti ng 08/18/2023 until 08/18/2023 Start: 08-18-2023 End: 08-18-2023 Patient encounter procedure Imaging at [facility] Start: 05-19-2023 End: 05-19-2023 Patient encounter procedure Department of Radiation Oncology at [facility] Start: 05-19-2023 End: 05-19-2023 Patient encounter procedure Imaging at [facility] Start: 05-14-2023 Screening for malign ant neoplasm of breast MAMMOGRAM SCREENING DISCUSSION [facility] Start: 03-15-2023 End: 03-15-2024 MR Brain W contrast IV MRI BRAIN WITH PERFUSION Imaging Routine Cancer of cerebral meninges Expected: 03/15/2023, Expires: 03/15/2024 [facility] Comment on above: Expected: 03/15/2023 , Expires: 03/15/2024 Start: 03-15-2023 End: 03-15-2023 Patient encounter procedure 03/15/2023 10:00 AM EDT Office Visit Department of Radiation Oncology at [place] [address] [address] [place] [phone] Andrew Bueno MD [address] [place] [phone] Department of Radiation Oncology at [facility] Start: 03-08-2023 End: 03-08-2023 Patient encounter procedure Department of Radiation Oncology at [facility] Start: 03-01-2023 End: 03-01-2023 Patient encounter procedure 03/01/2023 10:00 AM EDT Office Visit Department of Radiation Oncology at [place] [address] [address] [place] [phone] Andrew Bueno MD [address] [place] [phone] Department of Radiation Oncology at [facility] Start: 02-22-2023 End: 02-22-2023 Patient encounter procedure 02/22/2023 10:20 AM EDT Office Visit Department of Radiation Oncology at [place] [address] [address] [place] [phone] Andrew Bueno MD [address] [place] [phone] Department of Radiation Oncology at [facility] Start: 02-17-2023 Subsequent hospital visit by physician 02/17/2023 9:09 AM EDT Hospital Encounter Department of Radiation Oncology at [place] [address] [address] [place] [phone] Arrived Department of Radiation Oncology at [facility] Comment on above: Arrived Start: 02-15-2023 End: 02-15-2023 Patient encounter procedure 02/15/2023 9:40 AM EDT Office Visit Department of Radiation Oncology at [place] [address] [address] [place] [phone] Andrew Bueno MD [address] [place] [phone] Department of Radiation Oncology at [facility] Start: 02-08-2023 End: 02-08-2023 Patient encounter procedure 02/08/2023 10:40 AM EDT Office Visit Department of Radiation Oncology at [place] [address] [address] [place] [phone] Andrew Bueno MD [address] [place] [phone] Department of Radiation Oncology at [facility] Start: 02-04-2023 Influenza vaccination INFLUENZA VACC INE (#1) [facility] Start: 02-01-2023 End: 02-01-2023 Patient encounter procedure 02/01/2023 1:00 PM EDT Office Visit Department of Radiation Oncology at [place] [address] [address] [place] [phone] Andrew Bueno MD [address] [place] [phone] Department of Radiation Oncology at [facility] Start: 01-19-2023 End: 01-19-2023 Patient encounter procedure Department of Radiation Oncology Start: 01-02-2023 Patient discharge [facility] Start: 01-01-2023 [facility] Start: 12-31-2022 [facility] Start: 12-29-2022 End: 12-30-2022 [facility] Start: 12-29-2022 [facility] Start: 12-27-2022 Referral to service [facility] Start: 12-24-2022 Patient discharge [facility] Start: 12-24-2022 Care planning and pr oblem solving actions [facility] Start: 12-24-2022 Chart related administrative procedure [facility] Start: 12-23-2022 End: 12-24-2022 [facility] Start: 12-23-2022 Care planning and pr oblem solving actions [facility] Start: 12-23-2022 Cardiac monitoring [facility] Start: 12-23-2022 Admission procedure [facility] Start: 12-23-2022 Provision of activit y privileges [facility] Start: 12-23-2022 Assessment of risk o f venous thromboembolism [facility] Start: 12-23-2022 Insertion of cathete r into peripheral vein [facility] Start: 12-23-2022 Measuring intake and output [facility] Start: 12-23-2022 Providing care accor ding to standard [facility] Start: 12-23-2022 Referral to greens cutter [facility] Start: 12-23-2022 Referral to occupati onal therapist [facility] Start: 12-23-2022 Referral to service [facility] Start: 12-23-2022 Following clinical pathway protocol [facility] Start: 12-23-2022 Patient discharge [facility] Start: 12-23-2022 Patient referral to dietitian [facility] Start: 12-22-2022 [facility] Start: 12-16-2022 [facility] Start: 12-10-2022 Following clinical pathway protocol [facility] Start: 12-09-2022 Application of elast ic bandage [facility] Start: 12-06-2022 Application of intermittent pneumatic compression device [facility] Start: 12-06-2022 [facility] Start: 12-06-2022 Recommendation to continue with treatment [facility] Start: 12-06-2022 Urinary bladder training [facility] Start: 12-06-2022 Wound care [facility] Start: 12-06-2022 Referral to service [facility] Start: 12-06-2022 Admission procedure [facility] Start: 12-06-2022 Patient referral to dietitian [facility] Start: 12-06-2022 Referral to occupati onal therapist [facility] Start: 12-06-2022 Vital signs measurements [facility] Start: 12-06-2022 [facility] Start: 12-06-2022 Speech therapy assessment [facility] Start: 10-28-2022 End: 10-28-2022 Patient encounter procedure 10/28/2022 Office Visit Neurosurgery Neuro Oncology Shaye eWston Staci, CEMENTING BULK MATERIAL OPERATOR-INTERNET NETWORK SPECIALIST [address] [place] [address] Division of Neuro Surgery at [facility] Start: 10-13-2022 End: 10-13-2022 Craniectomy w/excision [...] physician 10/09/2022 Hospital Encounter Magnetic Resonance Imaging MonicaZechariahfleipekleber Eldridge, CEMENTING BULK MATERIAL OPERATOR-INTERNET NETWORK SPECIALIST [address] [place] [address] Imaging Outpatient Care [facility] Start: 10-07-2022 End: 10-07-2022 Telemedicine consultation with patient 10/07/2022 Telemedicine Neurosurgery Neuro Oncology Ernie Kincaid MD [address] [place] [address] Division of Neuro Surgery at [facility] Start: 09-30-2022 End: 10-01-2023 CT Abdomen and Pelvis W contrast IV CT ABDOMEN/PELVIS WITH CONTRAST Imaging STAT Skull mass Expected: 09/30/2022, Expires: 10/01/2023 [facility] Comment on above: Expected: 09/30/2022 , Expires: 10/01/2023 Start: 09-30-2022 End: 10-01-2023 CT Chest W contrast IV CT CHEST WITH CONTRAST Imaging STAT Skull mass Expected: 09/30/2022, Expires: 10/01/2023 [facility] Comment on above: Expected: 09/30/2022 , Expires: 10/01/2023 Start: 07-24-2022 COVID-19 VACCINE (2 - Moderna series) COVID-19 VACCINE (2 - Moderna series) [facility] Start: 04-20-2022 COVID-19 VACCINE (2 - Moderna risk series) COVID-19 VACCINE (2 - Moderna risk series) [facility] Start: 11-19-2018 RSV VACCINE (1 - 1-d ose 75+ series) RSV VACCINE (1 - 1-dose 75+ series) [facility] Start: 11-19-2008 Pneumococcal vaccination PNEUM OCOCCAL VACCINE SERIES (1 - PCV) [facility] Start: 2003 RSV VACCINE (1 - 1-d ose 60+ series) RSV VACCINE (1 - 1-dose 60+ series) [facility] Start: 11-19-1993 Zoster vaccine hzv l henrietta for subcutaneous use ZOSTER (SHINGLES) VACCINE (1 of 2) [facility] Start: 11-19-1988 Screening for malign ant neoplasm of colon COLORECTAL CANCER SCREENING DISCUSSION [facility] Start: 11-19-1964 Screening for malign ant neoplasm of cervix CERVICAL CANCER SCREENING DISCUSSION [facility] Start: 11-19-1962 Pneumococcal vaccination PNEUM OCOCCAL VACCINE SERIES (1 of 2 - PCV) [facility] Start: 11-19-1962 Third diphtheria, te tanus and acellular pertussis (DTaP) vaccination TDAP (ADULT) [facility] Start: 11-19-1962 Zoster vaccine hzv l henrietta for subcutaneous use ZOSTER (SHINGLES) VACCINE (1 of 2) [facility] Start: 11-19-1949 Pneumococcal vaccination [facility] Start: 05-21-1944 COVID-19 VACCINE (#1) COVID-19 VACCI NE (#1) [facility] Start: 1943 Hepatitis C screening HEPATITI S C VIRUS SCREENING [facility] Start: 1943 Potassium [Moles/vol ume] in Serum or Plasma POTASSIUM [facility] Start: 1943 Screening for osteoporosis DEXA SCAN DISCUSSION [facility] Start: 1943 Tetanus vaccination TETANUS [facility] Basic metabolic 2008 panel with ionized calcium - Serum or Plasma [facility] Cranioplasty skull d efect 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 Skull mass [facility] Cranioplasty skull d efect 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 Skull mass [facility] Ecg routine ecg w/le ast 12 lds w/i&r [place] ELECTROCARDIOGRAM, COMPLETE [place] - OFFICE PERFORMED Routine Preop exam for internal medicine Skull mass Essential hypertension Hyperlipidemia, unspecified hyperlipidemia type Ordered: 10/08/2022 [facility] Comment on above: Ordered: 10/08/2022 End: 11-07-2024 ED US FAST ED US FAST Imaging STAT One Time for 1 Occurrences starting 11/07/2024 until 11/07/2024 [facility] Comment on above: One Time for 1 Occur rences starting 11/07/2024 until 11/07/2024 Folate [Moles/volume ] in Serum or Plasma [facility] Fth/gft free w/direc t closure s/a/l 20 cm/< GRAFT SKIN FULL THICKNESS SCALP (FTSG) Skull mass [facility] Fth/gft free w/direc t closure s/a/l 20 cm/< GRAFT SKIN FULL THICKNESS SCALP (FTSG) [facility] Hemoglobin A1c/Hemoglobin.total in Blood [facility] Magnesium measurement [facility] End: 10-09-2022 MR Brain [facility] Work Phone: Comment on above: 1 Occurrences starti ng 10/09/2022 until 10/09/2022 End: 01-12-2023 MR Brain W contrast IV [facility] Comment on above: 1 Occurrences starti ng 01/12/2023 until 01/12/2023 End: 03-14-2024 MR Brain W contrast IV [facility] Comment on above: 1 Occurrences starti ng 03/14/2024 until 03/14/2024 [facility] myoq/fscq flap head&neck w/named vasc pedcl FLAP MUSCLE/MYOCUTANEOUS/FASC IOCUTANEOUS HEAD OR NECK Skull mass [facility] myoq/fscq flap head&neck w/named vasc pedcl FLAP MUSCLE/MYOCUTANEOUS/FASC IOCUTANEOUS HEAD OR NECK Skull mass [facility] Patient Education [facility] Work Phone: Patient referral [facility] Work Phone: End: 01-12-2023 PT Skull base to mid-thigh [facility] Comment on above: 1 Occurrences starti ng 01/12/2023 until 01/12/2023 RAD ONC SIMULATION RAD ONC SIMUL ATION Imaging Routine Neuroendocrine cancer Cancer of cerebral meninges 01/19/2023 2:34 PM EDT [facility] End: 11-07-2024 Standard ECG ECG ECG STAT One Time for 1 Occurrences starting 11/07/2024 until 11/07/2024 [facility] Comment on above: One Time for 1 Occur rences starting 11/07/2024 until 11/07/2024 Troponin T.cardiac [Mass/volume] in Serum or Plasma by High sensitivity method [facility] Urine culture [facility] US Carotid arteries [facility] End: 11-07-2024 VITAMIN D (25-HYDROXY,TOTAL) VITAMIN D (25-HYDROXY,TOTAL) Lab Routine One Time for 1 Occurrences starting 11/07/2024 until 11/07/2024 [facility] Comment on above: One Time for 1 Occur rences starting 11/07/2024 until 11/07/2024 Immunizations Immunization Date Immunization Notes Care Provider Fa néstor 11-07-2024 tetanus and diphther ia toxoids, adsorbed, preservative free, for adult use (5 Lf of tetanus toxoid and 2 Lf of diphtheria toxoid) Ignacio De La Garza Sr., MD, PhD Work Phone: [facility] 03-23-2022 influenza virus vaccine, unspecified formulation Andrew Bueno MD Work Phone: [facility] 04-06-2020 Influenza virus vaccine [facility] Payers Date Payer Category Payer Self-pay [id number] 2022 Medicare [id number] 2019 Managed Care (unspecified) MEDICARE SUPPLEMENT [id number] 2019 Unknown GENERIC PAYOR [place] DICARE SUPPLEMENT [id number] 2019-Present [phone] [place] [address] [id number]. [id number] 2019 Unknown [id number] 2008 Medicare [id number] 1943 Unknown [id number] .840.1.190538.3.579. 2.594 1943 Unknown [id number] .1.957088.3.579. 2.594 1943 Unknown [id number] 2.840.1.334179.3.579. 2.594 1943 Unknown [id number] 2.840.1.295942.3.579. 2.594 1943 Unknown [id number] 2.840.1.481735.3.579. 2.594 1943 Unknown [id number] 2.840.1.579699.3.579. 2.594 1943 Unknown [id number] .0.1.298223.3.579. 2.594 1943 Unknown [id number] .0.1.119588.3.579. 2.594 Medicare MEDICARE O OTHER [id number] Private Health Insurance [facility] [id number] Unknown [id number] 2.840.1.076475.3.579. 2.462 Unknown [id number] 2.840.1.162981.3.579. 2.462 Unknown [id number] 2.840.1.187192.3.579. 2.462 Unknown [id number] 2.840.1.157698.3.579. 2.462 Unknown [id number] 2.840.1.029376.3.579. 2.462 Unknown [id number] 2.840.1.882220.3.579. 2.462 Unknown [id number] 2.840.1.152165.3.579. 2.462 Unknown [id number] 2.840.1.881635.3.579. 2.462 Unknown [id number] 2.840.1.467800.3.579. 2.462 Unknown [id number] 2.16.840.1.312862.3.579. 2.462 Unknown [id number] 2.16.840.1.176740.3.579. 2.462 Unknown [id number] 2.16.840.1.925193.3.579. 2.462 Unknown [id number] 2.16840.1.150943.3.579. 2.462 Unknown [id number] 2.16840.1.158580.3.579. 2.462 Unknown [id number] 2.16840.1.951900.3.579. 2.462 Unknown [id number] 2.16840.1.775134.3.579. 2.462 Unknown [id number] 2.16840.1.554212.3.579. 2.462 Unknown [id number] 2.16840.1.426156.3.579. 2.462 Unknown [id number] 2.840.1.755542.3.579. 2.462 Unknown [id number] 2.840.1.287617.3.579. 2.462 Social History Date Type Detail Facility Start: 07-31-2021 End: 07-19-2023 Tobacco smoking status PAIS Unknown if ever smoked [facility] Start: 08-28-2020 Alone [facility] Start: 08-14-2020 Non-smoker [facility] Start: 1945 Sex Assigned At Female [facility] Start: 1945 Sex Assigned At Not on file [facility] Start: 10-04-2022 End: 12-03-2024 Tobacco smoking status NHIS Never smoked tobacco [facility] Start: 10-04-2022 Tobacco use and exposure Smokeless tobacco non-user [facility] Start: 10-04-2022 End: 10-08-2022 Alcohol intake Current drinker of alcohol (finding) [facility] Start: 10-04-2022 Alcohol Comment socially once a year [facility] Start: 01-12-2023 End: 11-04-2024 Alcohol intake Ex-drinker (finding) [facility] Start: 11-18-2022 End: 07-11-2024 History of Social function [facility] Start: 11-18-2022 End: 07-11-2024 Alcohol Use Disorder Identification Test - Consumption [AUDIT-C] [facility] How often to you hav e a drink containing alcohol? Monthly or less [facility] How many standard dr inks containing alcohol do you have on a typical day? 1 or 2 [facility] How often do you hav e 6 or more drinks on 1 occasion? Never [facility] (I/We) worried mark anthony er (my/our) food would run out before (I/we) got money to buy more. Never true [facility] In the past 12 month s, has lack of transportation kept you from medical appointments or from getting medications? No [facility] In the past 12 month s, was there a time when you were not able to pay the mortgage or rent on time? No [facility] Start: 11-09-2022 End: 11-19-2022 Exposure to SARS-CoV-2 (event) Not sure [facility] Start: 07-08-2024 Gender identity Identifies as female gender (finding) [facility] Start: 07-08-2024 Sexual orientation Heterosexual (finding) [facility] Start: 09-27-2022 End: 09-27-2024 Sex Female (finding) [facility] Medical Equipment Procedure Code Equipment Code Equipment Original Text Equipment Identifier Dates Sealant Dural Ad herus Autospray Et - [id number] Start: 11-16-2022 Screw Bone 5mm 1 .8mm Emergency Craniofacial Level One - [id number] Start: 11-24-2022 Clearfit Cranial Implant [id number] Start: 11-25-2022 Clearfit Cranial Implant [id number] Start: 11-16-2022 Patch Dural 3x3i n Durepair Substitute - [id number] Start: 11-16-2022 Screw Bone 5mm 1 .8mm Emergency Craniomaxillofacial Level One - [id number] Start: 11-24-2022 Patch Dural 7x5i n Thk3.5mm Craniomaxillofacial - [id number] Start: 11-24-2022 Mesh Titanium 3m m Regular Cranial Screen Panel - [id number] Start: 11-24-2022 Plate Bone .6mm Curve Craniomaxillofacial 5x2 Hole Low - [id number] Start: 11-24-2022 Plate Bn .6mm Cr nmxf 3x2 Hl Lwpr Crv Seg Ti Nst - [id number] Start: 11-24-2022 Cover [place] Craniofacial .3mm 15mm Ultra Low Profile - [id number] Start: 11-24-2022 Screw Bone 5mm 1 .5mm Craniomaxillofacial Level One - [id number] Start: 11-24-2022 Screw Bone Drill Free Craniomaxillofacial Titanium Level One - [id number] Start: 11-25-2022 Cover Bur Hl Crn mxf .4mm 17mm Matrixneuro Ti Nst Eddie - [id number] Start: 11-24-2022 Cover Bur Hl Crn mxf .4mm 17mm Matrixneuro Ti Nst Eddie - [id number] Start: 11-16-2022 Screw 1.5x4mm 04.503.104.01 - [id number] Start: 11-24-2022 Screw 1.5x4mm 04.503.104.01 - [id number] Start: 11-16-2022 Cover Bur Hl Crn mxf .4mm 15mm Matrixneuro Ti Nst Eddie - [id number] Start: 11-24-2022 Cover Bur Hl Crn mxf .4mm 15mm Matrixneuro Ti Nst Eddie - [id number] Start: 11-16-2022 Cover [place] Hole Craniomaxillofacial .4mm 24mm Matrixneuro - [id number] Start: 11-24-2022 Cover [place] Craniomaxillofacial .4mm 24mm Matrixneuro - [id number] Start: 11-16-2022 Mesh Matrixneuro [id number].6mm Titanium Cranial Rigid - [id number] Start: 11-24-2022 Mesh Matrixneuro [id number].6mm Titanium Cranial Rigid - [id number] Start: 11-16-2022 Goals Date Patient Goal Desired Activity /State Functional Status Date Assessment Result Facility 11-29-2024 Functional status Activity Abili ty With Assist of 1 [facility] Work Phone: 11-27-2024 Functional status Ambulates [facility] Work Phone: 11-08-2024 Are you deaf, or do you have serious difficulty hearing Yes 11/08/2024 4:11 PM EDT Shelby Mae, MICAH Yes [facility] 11-08-2024 Are you blind, or do you have serious difficulty seeing, even when wearing glasses No 11/08/2024 4:11 PM Shelby Montano RN No [facility] 11-08-2024 Do you have serious difficulty walking or climbing stairs Yes 11/08/2024 4:11 PM Shelby Montano RN Yes [facility] 11-08-2024 Do you have difficul ty dressing or bathing No 11/08/2024 4:11 PM Shelby Montano, MICAH No [facility] 11-08-2024 Because of a physica l, mental, or emotional condition, do you have difficulty doing errands alone such as visiting a physician's office or shopping No 11/08/2024 4:11 PM Shelby Montano RN No [facility] 01-06-2023 Are you deaf, or do you have serious difficulty hearing Yes 01/06/2023 9:52 AM Hansa Patiño, MICAH Yes [facility] 01-06-2023 Are you blind, or do you have serious difficulty seeing, even when wearing glasses No 01/06/2023 9:52 AM Hansa Patiño, MICAH No [facility] 01-06-2023 Do you have serious difficulty walking or climbing stairs Yes 01/06/2023 9:52 AM Hanas Patiño, MICAH Yes [facility] 01-06-2023 Do you have difficul ty dressing or bathing No 01/06/2023 9:52 AM Hansa Patiño, MICAH No [facility] 01-06-2023 Because of a physica l, mental, or emotional condition, do you have difficulty doing errands alone such as visiting a physician's office or shopping No 01/06/2023 9:52 AM Hansa Patiño, MICAH No [facility] 01-01-2023 Functional status Activity Abili ty Standby Assist [facility] Work Phone: 12-31-2022 Functional status Chair [facility] Work Phone: 12-24-2022 Functional status Ambulates [facility] Work Phone: 12-23-2022 Functional status Ambulates [facility] Work Phone: Mental Status Date Assessment Result Facility 12-03-2024 Cognitive function Voice/Name [facility] Work Phone: 11-29-2024 Cognitive function Voice/Name [facility] Work Phone: 11-08-2024 Because of a physica l, mental, or emotional condition, do you have serious difficulty concentrating, remembering, or making decisions No 11/08/2024 4:11 PM Shelby Montano, MICAH No [facility] 11-07-2024 Cognitive function Voice/Name [facility] Work Phone: 09-27-2024 Cognitive function Awake;Alert;A ppropriate; Follows Commands [facility] Work Phone: 01-06-2023 Because of a physica l, mental, or emotional condition, do you have serious difficulty concentrating, remembering, or making decisions No 01/06/2023 9:52 AM EDT Hansa Hernandez, RN No [facility] 01-01-2023 Cognitive function Voice/Name [facility] Work Phone: 12-24-2022 Cognitive function Voice/Name [facility] Work Phone: 12-23-2022 Cognitive function Voice/Name [facility] Work Phone: Clinical Notes 09-30-2022 to 12-03-2024 Note Date & Type Note Facility 12-03-2024 Discharge summary [facility] 12-03-2024 Discharge summary Note Date/Time December 03, 2024 10:25pm [facility] Medical Records Department [address] [place] [address] Emergency Department Summary 12/03/24 MR#: [id number] Acct: [id number] Name: SARAH MCGUIRE Rep #:[id number] : 1945 79 From: Hayden Sadler DO [...] she has been acting her normal self [facility] Medical History Presbycusis History of rheumatic [...] follow commands knew that she was at [facility]. NIH of 0 GCS 15 Skin: [...] 80.3 H Lymph % (Auto) 9.0 L [place] % (Auto) 9.6 Eos % (Auto) 0.1 [...] Clarity Clear Urine pH 7.0 Ur Specific [place] 1.010 Urine Protein 15 H Urine Glucose [...] MD [Primary Care Provider] - Print Language: [place] Disposition Disposition: Acute Care Hospital [facility] What to do if you have Problems For any increased pain, shortness of breath, bleeding, nausea or vomiting, chestpain, or any unexpected problems, contact your Primary Care Provider. Call [facility] ([phone]) or report to the closest Emergency Room. Call 911 if necessary. 12/03/242224 <Electronically signed by Hayden Sadler DO> Cosigner Signature (if applicable): CC: Dr. Monika Venegas MD ~ Signed [facility] Work Phone: 1(227) 695-405906-26-2025 Discharge summary Author Jo-Ann Hugo [facility] Note Date/Time November 29, 2024 10:1 1am [facility] Medical Records Department [address] [place] [address] Instructions for Home/Discharge Instructions 11/27/24 1602 MR#: [id number] Acct: [id number] Name: SARAH MCGUIRE Rep #:[id number] : 1945 79 From: Jo-Ann Arias DO [...] drug) to 750 mg twice a day [id number] mg twice a day. You had an [...] sodium up they have to see a maintenance plumber(kidney doctor) to help manage the medications. I [...] prevent strokes due to atrial fibrillation(AFIB). OFFICE: [phone] CELL: [phone] NURSES STATION ON REHAB: [phone] Discharge Orders/Prescriptions Prescriptions: New hydralazine 50 mg [...] can be placed): Home Health Service 11/27/24 3106<Electronically signed by Jo-Ann Arias DO>Jo-Ann Arias DO [...] She is going to have HHC at [facility]. SW is going to arrange for to follow progress toward healing at home. she is to roll from side to side and not have prolongedlying on her back and sitting in the chair without getting up to walk. Will also have [facility] draw a BMP in 1 week. 11/29/24 [...] MD; Dr. Gibson Yang MD ~* Signed [facility] Work Phone: 1(281) 282-266506-26-2025 Discharge summary [facility] Medical Records Department [address] [place] [address] Discharge Summary 11/27/24 1647 MR#: [id number] Acct: [id number] Name: SARAH MCGUIRE Rep #:[id number] : 1945 79 From: Jo-Ann Arias DO PCP: Dr. Monika Venegas MD Status:ADM IN Location: [place] [address] Providers Date of Admission: 11/12/24 Date of Discharge: 11/28/24 Primary Care Physician: Dr. Monika Venegas MD Consultations 11/28/24 12:17 Consult: Nephrology Routine Consulting Provider: [facility] [place] Reason for Consult: hyponatremia with hx SIADH [...] long-term use: Status: Chronic Code(s): Z79.01 - snf (current) use of anticoagulants Plan: Continue Eliquis 2.5 mg BID. (8) Bradycardia, sinus: Status: Inactive Code(s): R00.1 - Bradycardia, unspecified Plan: Resolved with the4 discontinuation of Coreg. HR is WNL on Amiodarone 200 mg daily. (9) snf current use of amiodarone: Status: Chronic Code(s): Z79.899 - Other bed bug exterminator (current) drug therapy (10) High cholesterol: Status: [...] will follow up with Dr. Schulte post [facility] rehab. (17) Presbycusis: Status: Chronic Code(s): [...] 2 Plan: Mepilex applied and will have [facility] at [facility] with SN to follow the ulcer to [...] anxiety treated. Plan 1. DC home with [facility]. BMP in 1 week. C to draw. 2. Continue Mepilex to the decubitus ulcer [facility] SN will follow 3. BMP in 1 [...] tablet 2.5 mg PO BID called to [facility] tabs 08/13/24 acetaminophen 325 mg [...] who presented to the emergency department at [facility] on 11/07/2024 complaining of increased slurred [...] to presenting to the emergency department at [facility]. Coreg was held for bradycardia but, [...] to the acute inpt rehab unit at [facility] on 11/12/24 for 3 hours of therapy daily to restore function/independence at or near her level prior to recent events. Since her craniotomy in 2022 she requires assistance from family for many ADL's. saarh was taking Cefdinir at the time of [...] came up to 134. When the sodium sot250 the BUN was 32 with a creatinine [...] a BMP done in 1 week post ID....[facility] to draw and send results to the [...] to follow up with Dr. Melchor post [facility] from rehab. HR is WNL on Amiodarone 200 mg daily with no tachycardia. She has not beenbradycardic. Sarah was discharged home with her daughter Alexsandra on 11/29/2024 and will have [facility] home health care. Will have home [...] drug) to 750 mg twice a day [id number] mg twice a day. You had an [...] sodium up they have to see a maintenance plumber(kidney doctor) to help manage themedications. I would [...] to preventstrokes due to atrial fibrillation(AFIB). OFFICE: [phone] CELL: [phone] NURSES STATION ON REHAB: [phone] Discharge Orders/Prescriptions Prescriptions: New hydralazine 50 mg [...] Health Service Charges/Coding Visit Charges Inpatient E&M: 87012 Disch Hosp >30min 11/29/24 1151 Cosigner Signature (if applicable): CC: Dr. Monika Venegas MD; Dr. Gagan Schulte MD; Dr. Jo-Ann Arias DO; Dr. Odilon Melchor MD; MAGALY Davis~ Signed [facility]06-26-2025 Discharge summary [facility] Medical Records Department [address] [place] [address] Instructions for Home/Discharge Instructions 11/27/24 1602 MR#: [id number] Acct: [id number] Name: SARAH MCGUIRE Rep #:[id number] : 1945 79 From: Jo-Ann Arias DO [...] drug) to 750 mg twice a day [id number] mg twice a day. You had an [...] sodium up they have to see a maintenance plumber(kidney doctor) to help manage themedications. I would [...] to preventstrokes due to atrial fibrillation(AFIB). OFFICE: [phone] CELL: [phone] NURSES STATION ON REHAB: [phone] Discharge Orders/Prescriptions Prescriptions: New hydralazine 50 mg [...] with Dr. Melchor and Dr. Schulte. 11/29/24 [facility] TREJO cc: TYRA Cabral; Dr. [...] She is going to have HHC at [facility]. SW is going to arrange for SN [...] MD; Dr. Gibson Yang MD ~* Signed [facility]06-24-2025 Discharge summary Author Jo-Ann [facility] Note Date/Time November 29, 2024 11:5 1am [facility] Medical Records Department [address] [place] [address] Discharge Summary 11/27/24 1647 MR#: [id number] Acct: [id number] Name: SARAH MCGUIRE Rep #:[id number] : 1945 79 From: Jo-Ann Arias DO PCP: Dr. Monika Venegas MD Status:ADM IN Location: [place] [address]1 Providers Date of Admission: 11/12/24 Date of Discharge: 11/28/24 Primary Care Physician: Dr. Monika Venegas MD Consultations 11/28/24 12:17 Consult: Nephrology Routine Consulting Provider: [facility] [place] Reason for Consult: hyponatremia with hx SIADH [...] long-term use: Status: Chronic Code(s): Z79.01 - terminal make up operator (current) use of anticoagulants Plan: Continue Eliquis 2.5 mg BID. (8) Bradycardia, sinus: Status: Inactive Code(s): R00.1 - Bradycardia, unspecified Plan: Resolved with the4 discontinuation of Coreg. HR is WNL on Amiodarone 200 mg daily. (9) terminal make up operator current use of amiodarone: Status: Chronic Code(s): Z79.899 - Other jail (current) drug therapy (10) High cholesterol: Status: [...] Mepilex applied and will have HHC at [facility] with SN to follow the ulcer to [...] to get her anxiety treated. Plan 1. [place] home with [facility]. BMP in 1 week. HHC to draw. 2. Continue Mepilex to the decubitus ulcer [facility] SN will follow 3. BMP in 1 [...] tablet 2.5 mg PO BID called to [facility] tabs 08/13/24 acetaminophen 325 mg [...] who presented to the emergency department at [facility] on 11/07/2024 complaining of increased slurred [...] to presenting to the emergency department at [facility]. Coreg was held for bradycardia but, [...] [facility] and acute rehab was recommended at [facility]. She was transferred to the acute inpt rehab unit at [facility] on 11/12/24 for 3 hours of [...] a BMP done in 1 week post [place]....[facility] to draw and send results to the [...] daughter Alexsandra on 11/29/2024 and will have [facility] home health care. Will have home [...] drug) to 750 mg twice a day [id number] mg twice a day. You had an [...] sodium up they have to see a maintenance plumber(kidney doctor) to help manage the medications. I [...] prevent strokes due to atrial fibrillation(AFIB). OFFICE: [phone] CELL: [phone] NURSES STATION ON REHAB: [phone] Discharge Orders/Prescriptions Prescriptions: New hydralazine 50 mg [...] Health Service Charges/Coding Visit Charges Inpatient E&M: 73422 Disch Hosp >30min 11/29/24 1151 <Electronically signed by Jo-Ann Arias DO> Cosigner Signature (if applicable): CC: Dr. Monika Venegas MD; Dr. Gagan Schulte MD; Dr. Jo-Ann Arias DO; Dr. Oidlon Melchor MD; MAGALY Davis~ Signed [facility] Work Phone: 1(379) 570-850106-24-2025 Progress note Author Jo-Ann Arias [facility] Note Date/Time November 27, 2024 4:01 pm [facility] Medical Records Department [address] [place] [address] Progress Note 11/26/24 1206 MR#: [id number] Acct: [id number] Name: SARAH MCGUIRE Rep #:[id number] : 1945 79 From: Jo-Ann Arias DO PCP: Dr. Monika Venegas MD Status:ADM IN Location: [place] [address]1 Subjective Subjective Afebrile VSS - Maintaining appropriate [...] Anticoagulant long-term use: (8) Bradycardia, sinus: (9) snf current use of amiodarone: (10) High cholesterol: [...] her anxiety. Charges/Coding Visit Charges Inpatient E&M: 83608 Subs Hosp L1 11/27/24 1601 <Electronically signed by Jo-Ann Arias DO> [facility]as DO [facility] Signature (if applicable): CC: ~ Signed [facility] Work Phone: 1(557) 712-490406-24-2025 [facility] Medical Records Department [address] [place] [address] Discharge Summary 11/27/24 1647 MR#: [id number] Acct: [id number] Name: SARAH MCGUIRE Rep #: [id number] : 1945 79 From: Jo-Ann Arias DO PCP: Dr. Monika Venegas MD Status:ADM IN Location: [place] [address] Providers Date of Admission: 11/12/24 Date of Discharge: 11/28/24 Primary Care Physician: Dr. Monika Venegas MD Consultations 11/28/24 12:17 Consult: Nephrology Routine Consulting Provider: [facility] [place] Reason for Consult: hyponatremia with hx SIADH [...] long-term use: Status: Chronic Code(s): Z79.01 - snf (current) use of anticoagulants Plan: Continue Eliquis 2.5 mg BID. (8) Bradycardia, sinus: Status: Inactive Code(s): R00.1 - Bradycardia, unspecified Plan: Resolved with the4 discontinuation of Coreg. HR is WNL on Amiodarone 200 mg daily. (9) snf current use of amiodarone: Status: Chronic Code(s): Z79.899 - Other bed bug exterminator (current) drug therapy (10) High cholesterol: Status: [...] will follow up with Dr. Schulte post [facility] from rehab. (17) Presbycusis: Status: Chronic Code(s): H91.10 - Presbycusis, unspecified ear Qualifiers: Laterality: bilateral Qualified Code(s): H91.13 - (more content not included)... [facility]06-24-2025 Progress note [facility] Medical Records Department [address] [place] [address] Progress Note 11/26/24 1206 MR#: [id number] Acct: [id number] Name: SARAH MCGUIRE Rep #:[id number] : 1945 79 From: Jo-Ann Arias PCP: Dr. Monika Venegas MD Status:ADM IN Location: [place] [address] Subjective Subjective Afebrile VSS - Maintaining appropriate [...] Anticoagulant long-term use: (8) Bradycardia, sinus: (9) snf current use of amiodarone: (10) High cholesterol: [...] her anxiety. Charges/Coding Visit Charges Inpatient E&M: 29855 Subs Hosp L1 11/27/24 1601 Jo-Ann Arias DO Cosigner Signature (if applicable): CC: ~ Signed [facility]06-19-2025 Progress note Author Jo-Ann Марияjenny [facility] Note Date/Time November 22, 2024 6:46 pm [facility] Medical Records Department [address] [place] [address] Progress Note 11/22/24 0850 MR#: [id number] Acct: [id number] Name: SARAH MCGUIRE Rep #:[id number] : 1945 79 From: Jo-Ann Arias DO PCP: Dr. Monika Venegas MD Status:ADM IN Location: [place] [address] Subjective Subjective Sarah was seen on team [...] Anticoagulant long-term use: (8) Bradycardia, sinus: (9) terminal make up operator current use of amiodarone: (10) High cholesterol: [...] next Tuesday. She will go home with [facility] home health care. This morning when [...] this discussion. Charges/Coding Visit Charges Inpatient E&M: 55497 Subs Hosp L2 11/22/24 1846 <Electronically signed by Jo-Ann Arias DO> Jo-Ann Arias DO Cosigner Signature (if applicable): CC: ~ Signed [facility] Work Phone: 1(336) 697-788906-19-2025 Progress note [facility] Medical Records Department [address] [place] [address] Progress Note 11/22/24 0850 MR#: [id number] Acct: [id number] Name: SARAH MCGUIRE Rep #:[id number] : 1945 79 From: Jo-Ann Arias DO PCP: Dr. Monika Venegas MD Status:ADM IN Location: [place] [address]1 Subjective Subjective Sarah was seen on team [...] Anticoagulant long-term use: (8) Bradycardia, sinus: (9) snf current use of amiodarone: (10) High cholesterol: [...] next Tuesday. She will go home with [facility] home health care. This morning when [...] this discussion. Charges/Coding Visit Charges Inpatient E&M: 66131 Subs Hosp L2 11/22/24 1846 Jo-Ann Arias DO Cosigner Signature (if applicable): CC: ~ Signed [facility]06-17-2025 Progress note Author Jo-Ann Arias [facility] Note Date/Time 2024 11:5 3am [facility] Medical Records Department [address] [place] [address] Progress Note 11/20/24 1140 MR#: [id number] Acct: [id number] Name: SARAH MCGUIRE Rep #:[id number] : 1945 79 From: Jo-Ann Arias DO PCP: Dr. Monika Venegas MD Status:ADM IN Location: [place] [address] Subjective Subjective Afebrile Fluid intake yesterday was [...] Anticoagulant long-term use: (8) Bradycardia, sinus: (9) snf current use of amiodarone: (10) High cholesterol: [...] the AM. Charges/Coding Visit Charges Inpatient E&M: 93937 Subs Hosp L1 11/20/24 1153 <Electronically signed by Jo-Ann Arias DO> Jo-Ann Arias DO Cosigner Signature (if applicable): CC: ~ Signed [facility] Work Phone: 1(438) 507-630206-17-2025 Progress note [facility] Medical Records Department [address] [place] [address] Progress Note 11/20/24 1140 MR#: [id number] Acct: [id number] Name: SARAH MCGUIRE Rep #:[id number] : 1945 79 From: Jo-Ann Arias DO PCP: Dr. Monika Venegas MD Status:ADM IN Location: [place] [address] Subjective Subjective Afebrile Fluid intake yesterday was [...] Anticoagulant long-term use: (8) Bradycardia, sinus: (9) snf current use of amiodarone: (10) High cholesterol: [...] the AM. Charges/Coding Visit Charges Inpatient E&M: 97881 Subs Hosp L1 11/20/24 1153 Jo-Ann Arias DO Cosigner Signature (if applicable): CC: ~ Signed [facility]06-16-2025 Progress note Author Jo-Ann Марияjenny [facility] Note Date/Time November 19, 2024 10:5 9am [facility] Medical Records Department [address] [place] [address] Progress Note 11/19/24 0826 MR#: [id number] Acct: [id number] Name: SARAH MCGUIRE Rep #:[id number] : 1945 79 From: Jo-Ann Arias DO PCP: Dr. Monika Venegas MD Status:ADM IN Location: [place] [address] Subjective Subjective Afebrile VSS -blood pressure over [...] Anticoagulant long-term use: (8) Bradycardia, sinus: (9) terminal make up operator current use of amiodarone: (10) High cholesterol: [...] BMP . Charges/Coding Visit Charges Inpatient E&M: 92329 Subs Hosp L1 11/19/24 1055 <Electronically signed by Jo-Ann Arias DO> Jo-Ann Arias DO Cosigner Signature (if applicable): CC: ~ Signed [facility] Work Phone: 1(230) 751-721506-16-2025 Progress note [facility] Medical Records Department [address] [place] [address] Progress Note 11/19/24 0826 MR#: [id number] Acct: [id number] Name: SARAH MCGUIRE Rep #:[id number] : 1945 79 From: Jo-Ann Arias DO PCP: Dr. Monika Venegas MD Status:ADM IN Location: [place] [address] Subjective Subjective Afebrile VSS -blood pressure over [...] Anticoagulant long-term use: (8) Bradycardia, sinus: (9) terminal make up operator current use of amiodarone: (10) High cholesterol: [...] bilateral PLAN: Plan 1. Continue therapy 2. [facility] and today. Reviewed. 3. Encouraged her to [...] BMP . Charges/Coding Visit Charges Inpatient E&M: 05269 Subs Hosp L1 11/19/24 1059 Jo-Ann Arias DO Cosigner Signature (if applicable): CC: ~ Signed [facility]06-13-2025 Progress note Author Jo-Ann Arias [facility] Note Date/Time November 16, 2024 7:12 pm [facility] Medical Records Department [address] [place] [address] Progress Note 11/16/24 0828 MR#: [id number] Acct: [id number] Name: SARAH MCGUIRE Rep #:[id number] : 1945 78 From: Jo-Ann Arias DO PCP: Dr. Monika Venegas MD Status:ADM IN Location: [place] [address]1 Subjective Subjective Afebrile VSS -she was transitioned [...] Anticoagulant long-term use: (8) Bradycardia, sinus: (9) snf current use of amiodarone: (10) High cholesterol: [...] more days. Charges/Coding Visit Charges Inpatient E&M: 54046 Subs Hosp L1 11/16/241911 <Electronically signed by Jo-Ann Arias DO> Jo-Ann Arias DO Cosigner Signature (if applicable): CC: ~ Signed [facility] Work Phone: 1(518) 927-427706-13-2025 Progress note [facility] Medical Records Department [address] [place] [address] Progress Note 11/16/2428 MR#: [id number] Acct: [id number] Name: SARAH MCGUIRE Rep #:[id number] : 1945 78 From: Jo-Ann Arias DO PCP: Dr. Monika Venegas MD Status:ADM IN Location: [place] [address] Subjective Subjective Afebrile VSS -she was transitioned from lisinopril to hydralazine for blood pressure control yesterday. The blood pressure over the past 24 hours has ranged from 137/38 to 175/80. Blood pressure this a.m. opr565/40. The heart rate is ranged from 54-89. [...] Anticoagulant long-term use: (8) Bradycardia, sinus: (9) snf current use of amiodarone: (10) High cholesterol: [...] more days. Charges/Coding Visit Charges Inpatient E&M: 35172 Subs Hosp L1 11/16/241911 Jo-Ann Arias DO Cosigner Signature (if applicable): CC: ~ Signed [facility]06-12-2025 Progress note Author Jo-Ann Arias [facility] Note Date/Time November 15, 2024 6:12 pm [facility] Medical Records Department [address] [place] [address] Progress Note 11/15/24 1124 MR#: [id number] Acct: [id number] Name: SARAH MCGUIRE Rep #:[id number] : 1945 78 From: Jo-Ann Arias DO PCP: Dr. Monika Venegas MD Status:ADM IN Location: [place] [address] Subjective Subjective Sarah was seen on team [...] Anticoagulant long-term use: (8) Bradycardia, sinus: (9) terminal make up operator current use of amiodarone: (10) High cholesterol: [...] of Kera Charges/Coding Visit Charges Inpatient E&M: 47134 Subs Hosp L2 11/15/241811 <Electronically signed by Jo-Ann Arias DO> Jo-Ann Arias DO Cosigner Signature (if applicable): CC: ~ Signed [facility] Work Phone: 1(378) 842-298406-12-2025 Progress note [facility] Medical Records Department [address] [place] [address] Progress Note 11/15/24 1124 MR#: [id number] Acct: [id number] Name: SARAH MCGUIRE Rep #:[id number] : 1945 78 From: Jo-Ann Arias DO PCP: Dr. Monika Venegas MD Status:ADM IN Location: [place] [address] Subjective Subjective Sarah was seen on team [...] Anticoagulant long-term use: (8) Bradycardia, sinus: (9) snf current use of amiodarone: (10) High cholesterol: [...] of Kera Charges/Coding Visit Charges Inpatient E&M: 35210 [facility] Hosp L2 11/15/24 1812 Jo-Ann Arias DO Cosigner Signature (if applicable): CC: ~ Signed [facility]06-10-2025 History and physical note Author Jo[facility]Ann [facility] Note Date/Time November 13, 2024 2:53 pm [facility] Medical Records Department [address] [place] [address] Post Admission Physician Eval 11/13/24 1200 MR#: [id number] Acct: [id number] Name: SARAH MCGUIRE Rep #:[id number] : 1945 78 From: Jo-Ann Arias DO PCP: Dr. Monika Venegas MD Status:ADM IN Location: [place] [address] Admission Information Primary Diagnosis:: Debility/generalized weakness/recent diagnosis [...] Skin integrity and Medication Management Patient needs Staffing Recruiter/ Case Management for: Discharge Planning, Arranging Home [...] friends Was Preadmission Assessment Accurate?: Yes 11/13/24 9256 <Electronically signed by Jo-Ann Arias DO> Cosigner Signature (if applicable): CC: ~ Signed [facility] Work Phone: 1(490) 348-550806-10-2025 History and physical note Author Jo-Ann Arias [facility] Note Date/Time November 13, 2024 2:48 pm [facility] Medical Records Department [address] [place], [place] [address] [address] History & Physical Exam 11/13/24 1050 MR#: [id number] Acct: [id number] Name: SARAH MCGUIRE Rep #:[id number] : 1945 78 From: Jo-Ann Arias DO PCP: Dr. Monika Venegas MD Status:ADM IN Location: BX[facility]-4 HPI - General General Date of Admission: [...] who presented to the emergency department at [facility] on 11/07/2024 complaining of increased slurred [...] to presenting to the emergency department at [facility].. Coreg was held for bradycardia but, [...] [facility] and acute rehab was recommended at [facility]. She was transferred to the acute inpt rehab unit at [facility] on 11/12/24 for 3 hours of [...] x 3 are all less than 100. [facility] Medical History (Updated 11/13/24 @ 14:46 by [...] [facility] ; Denies dysuria, hematuria, nocturia, [...] [facility] for bradycardia. TSH is normal. (9) terminal make up operator current use of amiodarone: (10) High cholesterol: [...] cardiology in January 2024. Last echocardiogram at [facility] was in 2021. It showed an ejection fraction of 60% with stage I diastolic dysfunction, mild left atrial enlargement, mild mitral regurgitation and a PA systolic estimated at 36. She had an echocardiogram at [facility] when she had her craniotomy and the EF was 65 to 70%. The atria were of normal size. There was no [id number] shunt. She had mild to moderate mitral [...] with everything. Charges/Coding Visit Charges Inpatient E&M: 27134 Init Hosp L2 11/13/24 1448 <Electronically signed by Jo-Ann Arias DO> Cosigner Signature (if applicable): CC: Dr. Monika Venegas MD; Dr. Jo-Ann Arias DO; MAGALY Davis~ Signed [facility] Work Phone: 1(351) 171-914506-10-2025 History and physical note [facility] Medical Records Department [address] [place] [address] Post Admission Physician Eval 11/13/24 1200 MR#: [id number] Acct: [id number] Name: SARAH MCGUIRE Rep #:[id number] : 1945 78 From: Jo-Ann Arias DO PCP: Dr. Monika Venegas MD Status:ADM IN Location: [place] [address] Admission Information Primary Diagnosis:: Debility/generalized weakness/recent diagnosis [...] Skin integrity and Medication Management Patient needs Staffing Recruiter/ Case Management for: Discharge Planning, Arranging Home [...] friends Was Preadmission Assessment Accurate?: Yes 11/13/24 7669 Cosigner Signature (if applicable): CC: ~ Signed [facility]06-10-2025 History and physical note [facility] Medical Records Department [address] [place] [address] History & Physical Exam 11/13/24 1050 MR#: [id number] Acct: [id number] Name: SARAH MCGUIRE Rep #:[id number] : 1945 78 From: Jo-Ann Arias DO PCP: Dr. Monika Venegas MD Status:ADM IN Location: [id number] [facility] - General General Date of Admission: 11/12/24 [...] who presented to the emergency department at [facility] on 11/07/2024 complaining of increased slurred [...] to presenting to the emergency department at [facility].. Coreg was held for santosh ycardia [...] to the acute inpt rehab unit at [facility] on 11/12/24 for 3 hours of [...] x 3 are all less than 100. [facility] Medical History (Updated 11/13/24 @ 14:46 by [...] [facility] for brady[facility]. TSH is normal. (9) terminal make up operator current use of amiodarone: (10) High cholesterol: [...] cardiology in January 2024. Last echocardiogram at [facility] was in 2021. It showed an ejection fraction of 60% with stage I diastolic dysfunction, mild left atrial enlargement, mild mitral regurgitation and a PA systolic estimated at 36. She had an echocardiogram at [facility] when she had her craniotomy and the EF was 65 to 70%. The atria were of normal size. There was no jkcou-lz-mhme shunt. She had mild to moderate mitral [...] with everything. Charges/Coding Visit Charges Inpatient E&M: 33403 Init Hosp L2 11/13/24 8555 Cosigner Signature (if applicable): CC: Dr. Monika Venegas MD; Dr. Jo-Ann Arias DO; MAGALY Davis~ Signed [facility]06-10-2025 [facility] Medical Records Department [address] [place] [address] History Physical Exam 11/13/24 1050 MR#: [id number] Acct: [id number] Name: SARAH MCGUIRE Rep #: [id number] : 1945 78 From: Jo-Ann Arias DO PCP: Dr. Monika Venegas MD Status:ADM IN [facility] - General General Date of Admission: [...] who presented to the emergency department at [facility] on 11/07/2024 complaining of increased slurred [...] to presenting to the emergency department at [facility].. Coreg was held for bradycardia but, [...] [facility] and acute rehab was recommended at [facility]. She was transferred to the acute inpt rehab unit at [facility] on 11/12/24 for 3 hours of [...] x 3 are all less than 100. [facility] Medical History (Updated 11/13/24 @ 14:46 by [...] to [facility] 08/13/2409/05 (more content not included)...[facility]06-09-2025 Evaluation note* Diagnosis Onset Date Resolution [...] hematoma chron ic November 12, 2024 6:16pm terminal make up operator current use of amiodarone chronic November 12, 2024 6 :16pm Mild aortic stenosis chronic November 12, 2024 6:16pm Paroxysmal atrial fibrillation chron ic November 12, 2024 6:16pm Presbycusis chronic November 12 6:16pm Severe anxiety chronic November 12, 2024 6:16pm Acute cystitis resolved November 12, 2024 6:16pm Hypo-osmolality and hyponatremia res olved November 12, 2024 6:16pm Bradycardia, sinus inactive November 122024 6:16pm [facility] Work Phone: 1(990) 416-749306-09-2025 Evaluation note* Diagnosis Onset Date Resolution Status [...] epidural hematoma chron November 12, 2024 6:16pm terminal make up operator current use of amiodarone chronic November 12, [...] epidural hematoma chron December 03, 2024 10:35pm [facility] Work Phone: 1(407) 369-156606-09-2025 Hospital course Narrative* Angel Melendrez MD - [...] during her recent hospital stay at [facility]. As you may know, Sarah Mcguire is [...] the patient's recordscan be obtained via [facility] at [email or web address] It has been my pleasure participating in [...] erythema Skin: No jaundice or rash Neuro: waitress 3-7, 9-11 intact and equal. Strength grossly equal in muscle groups of the bilateral UEsand LEs. Psych: Ox3, appropriate affect and cognition Recent Labs 11/12/24 0458 WBC 6.18 HGB 10.6* PLATELET 195 SODIUM 131* POTASSIUM 4.5 CO2 25 ANIONGAP 12 BUN 16 CREATSERUM 0.89 Patient Instructions Future Appointments Date Time Provider Department Center 11/28/2024 12:00 PM MD LIZET Esquivel [facility] [address] [facility] [address] Medication List for when you go home [...] Spironolactone 25 MG/5ML SUSP [facility] Plan of care note* Plan of Care [...] Discharge Problem: Mobility Impairment Goal: Optimal Mobility [place] and Safety Outcome: Adequate for Discharge Problem: Communication Impairment Goal: Effective Communication Skills Outcome: Adequate for Discharge [facility]06-09-2025 Miscellaneous Notes* Plan of Care - [...] Intervention: Provide Person-Centered Care Flowsheets (Taken 11/12/2024 6467) Trust Relationship/Rapport: care explained emotional support provided [...] Discharge Problem: Mobility Impairment Goal: Optimal Mobility [place] and Safety Outcome: Adequate for Discharge Problem: [...] Progressing Problem: Mobility Impairment Goal: Optimal Mobility [place] and Safety Outcome: Progressing Problem: Communication Impairment [...] Progressing Problem: Mobility Impairment Goal: Optimal Mobility [place] and Safety Outcome: Progressing * Nursing Notes [...] note were not included. On admission to [facility], from ED a dual RN initial assessment of skin condition was performed by MICAH Rivera and Teresa Long RN. Skin Assessment: Skin not within defined limits. - Photo taken and uploaded into notes in IHIS: Yes Brent Score: 16 LDA Added:No Shelby Mae RN Right heel blanchable documented [facility]U [facility] Miscellaneous Notes* Plan of [...] Discharge Problem: Mobility Impairment Goal: Optimal Mobility [place] and Safety Outcome: Adequate for Discharge Problem: [...] Progressing Problem: Mobility Impairment Goal: Optimal Mobility [place] and Safety Outcome: Progressing Problem: Communication Impairment [...] Progressing Problem: Mobility Impairment Goal: Optimal Mobility [place] and Safety Outcome: Progressing * Nursing Notes [...] [facility]. [facility] RN initial assessment of skin condition was performed by MICAH Rivera and Teresa Long RN. Skin Assessment: Skin not within defined limits. - Photo taken and uploaded into notes in IHIS: Yes Brent Score: 16 LDA Added:No Shelby Mae RN Right heel blanchable documented in this encounterOS[facility] Nurse Note* Nursing Notes - Shanna Benavides RN - 11/12/2024 3:42 PM EDT Report called to [facility]. [facility]06-[facility]25 History of Present illness Narrative* KEY Cast - 11/12/2024 12:59 PM EDT Care Management Discharge Note Selected Continued Care - Admitted Since 11/07/2024 Destination Coordination complete. Service Provider Services Address Phone Fax Patient Preferred [facility] [address] [place] [facility] [address] [phone] -- Transport Request Mode of Transfer: BLS Name of Discharge Transport Company: ([facility]) Discharge Transport ETA: 3pm Patient medically stable for discharge per physician/medical team. Patient/Teachers' Assistant remain inagreement with the discharge plan. JEREMI Cast, KEY Yield Improvement Engineer Available by Secure Chat * Karen Johnson, PT - 11/12/2024 12:29 PM EDT Acute Physical Therapy Treatment Prior Gross Functional Mobility: used device, independent Current AM-PAC score(s): CURRENT AM-PAC Mobility Raw Score: 15 Based on the above AM-PAC score(s) and PT clinical judgment, patient is a good candidate for discharge to [facility] Facility Barriers to discharge home: Patient needs [...] break Mobility Assessment/Intervention: Supine to Sit Mobility [place] Level: Supine->Sit: minimum assist (75% patient effort) Bed Features/Set-up: Supine->Sit: Head of bed elevated, Use of bed rail Skilled Rationale: Positioning, Sequencing, Hand placement, Verbal cues Skilled Intervention/Details: Supine->Sit: increased time and step by step cues for sequencing Transfer Assessment/Intervention: Sit to Stand Transfer [place] Level: Sit->Stand: minimum assist (75% patient effort) [...] control each stand to sit Bed-Chair Transfer [place] Level: Bed<->Chair: moderate assist (50% patient effort) Physical Assist: Bed<->Chair: 2 person assist Assistive Device: Bed<->Chair: gait belt, hand held assist Skilled Rationale: Positioning, Sequencing, Hand placement, Verbal cues Skilled Intervention/Details: Bed<->Chair: Pt completed bed to chair transfer with arm and arm assist, pt required increased time but able to complete x 2-3 steps Gait/Functional Mobility Assessment/Intervention: Gait Assessment [place] Level: Gait: minimum assist (75% patient effort) [...] with a railin - Total Assistance CURRENT [facility] Mobility Raw Score: 15 CURRENT [facility] Mobility Functional Limitation: 57.70% Impaired in Basic [...] OT clinical judgment, discharge destination recommendation is: [facility] Facility Barriers to discharge home: Patient needs [...] shift Mobility Assessment/Intervention: Supine to Sit Mobility [place] Level: Supine->Sit: minimum assist (75% patient effort) Bed Features/Set-up: Supine->Sit: Head of bed elevated, Use of bed rail Skilled Rationale: Tactile cues, Verbal cues Skilled Intervention/Details: Supine->Sit: step by step sequencing cues and assist at LEs Transfer Assessment/Intervention: Sit to Stand Transfer [place] Level: Sit->Stand: minimum assist (75% patient effort) [...] anterior weight shift Stand to Sit Transfer [place] Level: Stand->Sit: minimum assist (75% patient effort) Assistive Device: Stand->Sit: gait belt, front-wheeled walker, armed chair Skilled Rationale: Hand placement, Verbal cues, Controlled descent for sitting Skilled Intervention/Details: Stand->Sit: cues for proximity to chair and reaching back to arm rest with fair eccentric control Bed-Chair Transfer [place] Level: Bed<->Chair: moderate assist (50% patient effort) Physical Assist: Bed<->Chair: 2 person assist Assistive Device: Bed<->Chair: gait belt, hand held assist Skilled Rationale: Verbal cues, Tactile cues Skilled Intervention/Details: Bed<->Chair: pivot transfer to left with bilat arm in arm, assist to weight shift bilat to progress feet Functional Mobility: Functional Mobility [place] Level: Functional Mobility/Gait: minimum assist (75% patient [...] ww, close chair follow Outcome Score(s): CURRENT [facility] Daily Activity Inpatient Short Form Putting on/Taking Off Lower Body Clothin - Total Assistance Bathin - A Lot of Assistance Toiletin - Total Assistance Putting on/Taking Off Upper Body Clothin - A Little Assistance Groomin - A Little Assistance Eatin - No Assistance CURRENT [facility] Activity Raw Score: 14 CURRENT [facility] Activity Functional Limitation/Modifier: 59.67% Currently Impaired [...] for discharge arranged Mode of Transfer: (P) [facility] Name of Discharge Transport Company: (P) Other ([facility]) Discharge Transport ETA: (P) 11/12/2024 @ 3:00pm Pick-up from [place] [id number]/A Destination [address] [address] [place]acle [place]ff Care Management Director Of Mobile Marketing * MOIRA Lowe - 11/11/2024 1:38 PM EDT Psychosocial Assessment Per chart review, patient is an 78 year old female who presents with concern for slurred speech/word finding difficulty. Support Merchandiser met with patient to introduce self, explain social work role during the inpatient stay and answer patient questions. Patient was alert and oriented x 4 and agreeable to social work visit. Information Source Information Source Information Source: patient Information Source Name: Sarah Mcguire Information Source Number: [id number] Considerations for the Medical Team: Patient has [...] issues: Positive tox screen: No Cultural, Spiritual, Yazidism Practices Cultural or synagogue practices that may impact discharge planning and/or [...] No needs at this time. CHIOMA Quesada Draw Bench Operator * MOIRA Lowe - 11/11/2024 1:33 PM EDT 11/11/24 1332 Social Work Screenings Screening patient has qualified for Trauma Patient appropriate for screening? Yes Trauma Screening Were you using substances at the time of the accident? No Is alcohol use a problem? No Interventions Intervention Needed? No CHIOMA Quesada Draw Bench Operator * Angel Melendrez MD - 11/11/2024 9:[address] [facility] Medicine Daily Progress Note Patient: Sarah Mcguire, [...] events captured on EEG. - Continue keppra 95849 mg BID Hypertensive Urgency: SBP in 200's [...] Weight PHYSICAL EXAM Gen: A, A, NAD, [place] ENT: MMM Resp: CTA & P bilat, normal effort Cardio: RRR, normal S1, S2, No TRISTAN GI: S/NT/ND, NABS Psych: Ox3, appropriate affect and cognition DATA REVIEW WBC/Hgb/Hct/Plts: 5.77/10.2/29.3/193 (11/12 435) Na/K+/Phos/Mg/Ca: 130/4.3/--/--/-- (11/12 435) Bun/Creat/Cl/CO2/Glucose: 15/0.93/98/24/95 (11/12 435) * Angel Melendrez MD - 11/10/2024 7:[address] [facility] Medicine Daily Progress Note Patient: Sarah Mcguire, [...] Weight PHYSICAL EXAM Gen: A, A, NAD, [place] ENT: MMM Resp: CTA & P bilat, normal effort Cardio: RRR, normal S1, S2, No TRISTAN GI: S/NT/ND, NABS Psych: Ox3, appropriate affect and cognition DATA REVIEW WBC/Hgb/Hct/Plts: 9.67/11.1/31.4/205 (11/10 338) Na/K+/Phos/Mg/Ca: 132/4.7/--/--/-- (11/10 338) Bun/Creat/Cl/CO2/Glucose: 16/0.78/99/25/96 (11/10 338) * ETRRY Loja - 11/09/2024 3:43 PM EDT Acute Care Speech Therapy Screen Note ? TRAFFIC SUPERVISOR speech/language/cognitive consult received and chart review completed [...] this time. If concerns arise, recommend outpatient TRAFFIC SUPERVISOR services. Time in: 1529 Time out: 1529 Speech-Language Pathologist Radha Yost, TRAFFIC SUPERVISOR * Karen Johnson, PT - 11/09/2024 10:35 AM EDT Acute Physical Therapy Evaluation Prior Gross Functional Mobility: used device, independent Current AM-PAC score(s): CURRENT AM-PAC Mobility Raw Score: 10 Based on the above AM-PAC score(s) and PT clinical judgment, patient is a good candidate for discharge to [facility] Facility Barriers to discharge home: Patient needs [...] noted Mobility Assessment: Supine to Sit Mobility [place] Level: Supine->Sit: moderate assist (50% patient effort) [...] assist Transfer Assessment: Sit to Stand Transfer [place] Level: Sit->Stand: minimum assist (75% patient effort) Physical Assist: Sit->Stand: 2 person assist Assistive Device: Sit->Stand: gait belt, hand held assist Skilled Rationale: Positioning, Sequencing, Hand placement, Verbal cues Skilled Intervention/Details: Sit->Stand: pt educated in sit to stand transfer with min assist of 2 and arm and arm assist, pt completed sit to stand from EOB and bedside commode Bed-Chair Transfer [place] Level: Bed<->Chair: moderate assist (50% patient effort) [...] steps Gait/Functional Mobility: Stairs: Outcome Score(s): CURRENT [facility] Basic Mobility Inpatient Short Form Turning over [...] with a railin - Total Assistance CURRENT [facility] Mobility Raw Score: 10 CURRENT [facility] Mobility Functional Limitation: 76.75% Impaired in Basic [...] Current recommendation is for SNF. Patient prefer [facility]. She had been there in the past. CM will initiate referral today. YI TBD. Initial Discharge Planning Expected Discharge Disposition: [facility] Facility Transportation Available for Discharge: Ambulance Anticipated DME: unknown at this time Anticipated Services at Discharge: Physical Therapy, Occupational Therapy, Outpatient follow up, [facility] Patient Assessment Completed: Initial Legal Next of Kin Does the patient have a Guardian?: No Spouse: No Adult Child(morris), List All Adult Children: Yes Name and Contact information: Alexsandra Grullon [phone] Reviewed and Updated in Demographics? : Yes Advanced Care Planning Has the patient completed Advance Directives?: Completed, Not Available in Medical Record Copy of Advance Directives was requested?: Yes Advance Directives Requested From: Daughter Medication Management Does the patient have prescription insurance coverage? : Yes Is the patient on Anticoagulation? : Yes Provider or Clinic that manages Anticoagulation?: [facility] [address] [place], [place] [id number] [place] [phone] Living Environment and Support System Is the patient from a facility or longterm?: No Living Environment: House Patient Caregiving Responsibilities: [...] prior to this acute illness?: independent (Patient [place] and prefers Daughter answer CM questions) Is the patient's baseline functioning changed by this acute illness? : Yes Changes observed : Physical Concerns with patient being able to care for themselves at home? : Yes JEREMI Cast, MBA INTERNSHIP Yield Improvement Engineer Available by Secure Chat * Grace Meyer, OT - 11/09/2024 10:15 AM EDT Acute Occupational Therapy Evaluation Prior Gross Functional Mobility: used device, independent Current AM-PAC score(s): CURRENT AM-PAC Activity Raw Score: 14 Based on the above AM-PAC score(s) and OT clinical judgment, discharge destination recommendation is: [facility] Facility Barriers to discharge home: Patient needs [...] positioning Toileting Intervention/Details: Transferred to and from [facility] with min Ax2 and stood with min [...] Edema: Mobility Assessment: Supine to Sit Mobility [place] Level: Supine->Sit: moderate assist (50% patient effort) Physical Assist: Supine->Sit: 2 person assist Bed Features/Set-up: Supine->Sit: Head of bed elevated Skilled Rationale: Verbal cues Skilled Intervention/Details: Supine->Sit: step by step sequencing cues, increased time, assist at trunk and hips Transfer Assessment: Sit to Stand Transfer [place] Level: Sit->Stand: minimum assist (75% patient effort) Physical Assist: Sit->Stand: 2 person assist Assistive Device: Sit->Stand: gait belt, hand held assist Skilled Rationale: Verbal cues, Tactile cues, Full extension to upright positioning/posture Skilled Intervention/Details: Sit->Stand: Completed x1 from EOB, x1 from BSC, and x1 from recliner. Bilat arm in arm, tactile cues at hips and cues for full upright posture Bed-Chair Transfer [place] Level: Bed<->Chair: moderate assist (50% patient effort) [...] to left. Functional Mobility: Outcome Score(s): [facility]RENT [facility] Daily Activity Inpatient Short Form Putting on/Taking Off Lower Body Clothin - Total Assistance Bathin - A Lot of Assistance Toiletin - Total Assistance Putting on/Taking Off Upper Body Clothin - A Little Assistance Groomin - A Little Assistance Eatin - No Assistance CURRENT [facility] Activity Raw Score: 14 CURRENT [facility] Activity Functional Limitation/Modifier: 59.67% Currently Impaired in [...] Melendrez MD - 11/09/2024 8:[address] [facility] Medicine Daily Progress Note Patient: Sarah Mcguire, [...] Weight PHYSICAL EXAM Gen: A, A, NAD, [place] ENT: MMM Resp: CTA & P bilat, [...] No - altered mental status JEREMI Keith, PASTEURIZING MACHINE OPERATOR-S Draw Bench Operator, Emergency Dept. * МАРИЯ Pete - 11/07/2024 1:44 PM EDT Trauma Response Per EMS ([facility]), patient is Sarah Mcguire 41 Family is not present. EMS states daughter is en route. Pastoral presence provided. Rev. Abraham Stokes M.Div., [place], [facility] [phone] (office) Chaplains are available 27/12 by paging [phone]. 11/07/24 1315 Clinical Encounter Type Visited With Health Care Provider;Patient Visit Type Introduction Crisis Visit Trauma Pastoral Time Spent 15 min Referral Automated Page Interventions Provided Active listening;Supportive presence Plan of Care Continue Visiting PRN documented [facility] History of Present illness Narrative* KEY Cast - 11/12/2024 12:59 PM EDT Care Management Discharge Note Selected Continued Care - Admitted Since 11/07/2024 Destination Coordination complete. Service Provider Services Address Phone Fax Patient Preferred [facility] [address] [facility] [address] [phone] -- Transport Request Mode of Transfer: BLS Name of Discharge Transport Company: ([facility]) Discharge Transport ETA: 3pm Patient medically stable for discharge per physician/medical team. Patient/Teachers' Assistant remain inagreement with the discharge plan. JEREMI Cast, MBA INTERNSHIP Yield Improvement Engineer Available by Secure Chat * Karen Johnson PT - 11/12/2024 12:29 PM EDT Acute Physical Therapy Treatment Prior Gross Functional Mobility: used device, independent Current AM-PAC score(s): CURRENT AM-PAC Mobility Raw Score: 15 Based on the above AM-PAC score(s) and PT clinical judgment, patient is a good candidate for discharge to [facility] Facility Barriers to discharge home: Patient needs [...] break Mobility Assessment/Intervention: Supine to Sit Mobility [place] Level: Supine->Sit: minimum assist (75% patient effort) Bed Features/Set-up: Supine->Sit: Head of bed elevated, Use of bed rail Skilled Rationale: Positioning, Sequencing, Hand placement, Verbal cues Skilled Intervention/Details: Supine->Sit: increased time and step by step cues for sequencing Transfer Assessment/Intervention: Sit to Stand Transfer [place] Level: Sit->Stand: minimum assist (75% patient effort) [...] control each stand to sit Bed-Chair Transfer [place] Level: Bed<->Chair: moderate assist (50% patient effort) Physical Assist: Bed<->Chair: 2 person assist Assistive Device: Bed<->Chair: gait belt, hand held assist Skilled Rationale: Positioning, Sequencing, Hand placement, Verbal cues Skilled Intervention/Details: Bed<->Chair: Pt completed bed to chair transfer with arm and arm assist, pt required increased time but able to complete x 2-3 steps Gait/Functional Mobility Assessment/Intervention: Gait Assessment [place] Level: Gait: minimum assist (75% patient effort) [...] to complete Stairs Assessment/Intervention: Outcome Score(s): CURRENT [facility] Basic Mobility Inpatient Short Form Turning over [...] with a railin - Total Assistance CURRENT [facility] Mobility Raw Score: 15 CURRENT [facility] Mobility Functional Limitation: 57.70% Impaired in Basic [...] OT clinical judgment, discharge destination recommendation is: [facility] Barriers to discharge home: Patient needs [...] shift Mobility Assessment/Intervention: Supine to Sit Mobility [place] Level: Supine->Sit: minimum assist (75% patient effort) Bed Features/Set-up: Supine->Sit: Head of bed elevated, Use of bed rail Skilled Rationale: Tactile cues, Verbal cues Skilled Intervention/Details: Supine->Sit: step by step sequencing cues and assist at LEs Transfer Assessment/Intervention: Sit to Stand Transfer [place] Level: Sit->Stand: minimum assist (75% patient effort) [...] anterior weight shift Stand to Sit Transfer [place] Level: Stand->Sit: minimum assist (75% patient effort) Assistive Device: Stand->Sit: gait belt, front-wheeled walker, armed chair Skilled Rationale: Hand placement, Verbal cues, Controlled descent for sitting Skilled Intervention/Details: Stand->Sit: cues for proximity to chair and reaching back to arm rest with fair eccentric control Bed-Chair Transfer [place] Level: Bed<->Chair: moderate assist (50% patient effort) Physical Assist: Bed<->Chair: 2 person assist Assistive Device: Bed<->Chair: gait belt, hand held assist Skilled Rationale: Verbal cues, Tactile cues Skilled Intervention/Details: Bed<->Chair: pivot transfer to left with bilat arm in arm, assist to weight shift bilat to progress feet Functional Mobility: Functional Mobility [place] Level: Functional Mobility/Gait: minimum assist (75% patient [...] ww, close chair follow Outcome Score(s): CURRENT [facility] Daily Activity Inpatient Short Form Putting on/Taking Off Lower Body Clothin - Total Assistance Bathin - A Lot of Assistance Toiletin - Total Assistance Putting on/Taking Off Upper Body Clothin - A Little Assistance Groomin - A Little Assistance Eatin - No Assistance CURRENT [facility] Activity Raw Score: 14 CURRENT [facility] Activity Functional Limitation/Modifier: 59.67% Currently Impaired in [...] @ 3:00pm Pick-up from B10E 1078/A Destination [facility] [address] [place] [address] Miracle Graff Care Management Director Of Mobile Marketing * Nicholas Carrizales MD - 11/12/2024 10:00 [...] difficulties. 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 MR scan without stroke. MRA [...] Dr. Ferguson. Please call the Neurology resident public relations specialist or page Consult Team A on WebExchange with questions. Signed, Cosigned by Bill Ferguson MD at 11/13/2024 7:22 AM EDT Associated attestation - Bill Ferguson MD - 11/13/2024 7:22 AM EDT I discussed the the assessment and plan for this patient with the resident. Bill Ferguson M.D. Patch Driller of Neurology Co-Director of Neurohospitalist Medicine & Teleneurology * MOIRA Lowe - 11/11/2024 1:38 PM EDT Psychosocial Assessment Per chart review, patient is an 78 year old female who presents with concern for slurred speech/word finding difficulty. Support Merchandiser met with patient to introduce self, explain social work role during the inpatient stay and answer patient questions. Patient was alert and oriented x 4 and agreeable to social work visit. Information Source Information Source Information Source: patient Information Source Name: Sarah Mcguire Information Source Number: [phone] Considerations for the Medical Team: Patient has [...] issues: Positive tox screen: No Cultural, Spiritual, Yazidism Practices Cultural or synagogue practices that may impact discharge planning and/or [...] No needs at this time. CHIOMA Quesada Draw Bench Operator * MOIRA Lowe - 11/11/2024 1:33 PM EDT 11/11/24 1332 Social Work Screenings Screening patient has qualified for Trauma Patient appropriate for screening? Yes Trauma Screening Were you using substances at the time of the accident? No Is alcohol use a problem? No Interventions Intervention Needed? No CHIOMA Quesada Draw Bench Operator * Angel Melendrez MD - 11/11/2024 9:[address] [facility] Medicine Daily Progress Note Patient: Sarah Mcguire, [...] events captured on EEG. - Continue keppra 47893 mg BID Hypertensive Urgency: SBP in 200's [...] Weight PHYSICAL EXAM Gen: A, A, NAD, [place] ENT: MMM Resp: CTA & P bilat, normal effort Cardio: RRR, normal S1, S2, No TRISTAN GI: S/NT/ND, NABS Psych: Ox3, appropriate affect and cognition DATA REVIEW WBC/Hgb/Hct/Plts: 5.77/10.2/29.3/193 (11/12 435) Na/K+/Phos/Mg/Ca: 130/4.3/--/--/-- (11/12 435) Bun/Creat/Cl/CO2/Glucose: 15/0.93/98/24/95 (11/12 435) * Angel Melendrez MD - 11/10/2024 7:[address] [facility] Medicine Daily Progress Note Patient: Sarah Mcguire, [...] Weight PHYSICAL EXAM Gen: A, A, NAD, [place] ENT: MMM Resp: CTA & P bilat, normal effort Cardio: RRR, normal S1, S2, No TRISTAN GI: S/NT/ND, NABS Psych: Ox3, appropriate affect and cognition DATA REVIEW WBC/Hgb/Hct/Plts: 9.67/11.1/31.4/205 (11/10 338) Na/K+/Phos/Mg/Ca: 132/4.7/--/--/-- (11/10 338) Bun/Creat/Cl/CO2/Glucose: 16/0.78/99/25/96 (11/10 338) * TERRY Loja - 11/09/2024 3:43 PM EDT Acute Care Speech Therapy Screen Note ? TRAFFIC SUPERVISOR speech/language/cognitive consult received and chart review completed [...] this time. If concerns arise, recommend outpatient TRAFFIC SUPERVISOR services. Time in: 1530 Time out: 1530 Speech-Language Pathologist TERRY Loja * Karen Johnson, PT - 11/09/2024 10:35 AM EDT Acute Physical Therapy Evaluation Prior Gross Functional Mobility: used device, independent Current AM-PAC score(s): CURRENT AM-PAC Mobility Raw Score: 10 Based on the above AM-PAC score(s) and PT clinical judgment, patient is a good candidate for discharge to [facility] Barriers to discharge home: Patient needs [...] noted Mobility Assessment: Supine to Sit Mobility [place] Level: Supine->Sit: moderate assist (50% patient effort) [...] assist Transfer Assessment: Sit to Stand Transfer [place] Level: Sit->Stand: minimum assist (75% patient effort) Physical Assist: Sit->Stand: 2 person assist Assistive Device: Sit->Stand: gait belt, hand held assist Skilled Rationale: Positioning, Sequencing, Hand placement, Verbal cues Skilled Intervention/Details: Sit->Stand: pt educated in sit to stand transfer with min assist of 2 and arm and arm assist, pt completed sit to stand from EOB and bedside commode Bed-Chair Transfer [place] Level: Bed<->Chair: moderate assist (50% patient effort) [...] steps Gait/Functional Mobility: Stairs: Outcome Score(s): CURRENT [facility] Basic Mobility Inpatient Short Form Turning over [...] with a railin - Total Assistance CURRENT [facility] Mobility Raw Score: 10 CURRENT [facility] Mobility Functional Limitation: 76.75% Impaired in Basic [...] Current recommendation is for SNF. Patient prefer [facility]. She had been there in the past. CM will initiate referral today. YI TBD. Initial Discharge Planning Expected Discharge Disposition: [facility] Transportation Available for Discharge: Ambulance Anticipated DME: unknown at this time Anticipated Services at Discharge: Physical Therapy, Occupational Therapy, Outpatient follow up, [facility] Patient Assessment Completed: Initial Legal Next of Kin Does the patient have a Guardian?: No Spouse: No Adult Child(morris), List All Adult Children: Yes Name and Contact information: Alexsandra Grullon [phone] Reviewed and Updated in Demographics? : Yes Advanced Care Planning Has the patient completed Advance Directives?: Completed, Not Available in Medical Record Copy of Advance Directives was requested?: Yes Advance Directives Requested From: Daughter Medication Management Does the patient have prescription insurance coverage? : Yes Is the patient on Anticoagulation? : Yes Provider or Clinic that manages Anticoagulation?: [facility] [address] [place] [phone] [facility] [address] [facility] [id number] Living Environment and Support System Is the patient from a facility or longterm?: No Living Environment: House Patient Caregiving Responsibilities: [...] prior to this acute illness?: independent (Patient [place] and prefers Daughter answer CM questions) Is the patient's baseline functioning changed by this acute illness? : Yes Changes observed : Physical Concerns with patient being able to care for themselves at home? : Yes JEREMI Cast, KEY Yield Improvement Engineer Available by Secure Chat * Grace Meyer OT - 11/09/2024 10:15 AM EDT Acute Occupational Therapy Evaluation Prior Gross Functional Mobility: used device, independent Current AM-PAC score(s): CURRENT AM-PAC Activity Raw Score: 14 Based on the above AM-PAC score(s) and OT clinical judgment, discharge destination recommendation is: [facility] Barriers to discharge home: Patient needs [...] positioning Toileting Intervention/Details: Transferred to and from [facility] with min Ax2 and stood with min [...] Skilled Intervention/Details: Pt completed static standing at EOB/[facility] with min Ax2 Neuro: Sensation Overall Sensation: Intact Gross Coordination Gross Coordination: bilat UE intact Skin and Edema: Mobility Assessment: Supine to Sit Mobility [place] Level: Supine->Sit: moderate assist (50% patient effort) Physical Assist: Supine->Sit: 2 person assist Bed Features/Set-up: Supine->Sit: Head of bed elevated Skilled Rationale: Verbal cues Skilled Intervention/Details: Supine->Sit: step by step sequencing cues, increased time, assist at trunk and hips Transfer Assessment: Sit to Stand Transfer [place] Level: Sit->Stand: minimum assist (75% patient effort) Physical Assist: Sit->Stand: 2 person assist Assistive Device: Sit->Stand: gait belt, hand held assist Skilled Rationale: Verbal cues, Tactile cues, Full extension to upright positioning/posture Skilled Intervention/Details: Sit->Stand: Completed x1 from EOB, x1 from [facility], and x1 from recliner. Bilat arm in arm, tactile cues at hips and cues for full upright posture Bed-Chair Transfer [place] Level: Bed<->Chair: moderate assist (50% patient effort) [...] to left. Functional Mobility: Outcome Score(s): CURRENT [facility] Daily Activity Inpatient Short Form Putting on/Taking Off Lower Body Clothin - Total Assistance Bathin - A Lot of Assistance Toiletin - Total Assistance Putting on/Taking Off Upper Body Clothin - A Little Assistance Groomin - A Little Assistance Eatin - No Assistance CURRENT [facility] Activity Raw Score: 14 CURRENT [facility] Activity Functional Limitation/Modifier: 59.67% Currently Impaired [...] Melendrez MD - 11/09/2024 8:[address] [facility] Medicine Daily Progress Note Patient: Sarah Mcguire, [...] Weight PHYSICAL EXAM Gen: A, A, NAD, [place] ENT: MMM Resp: CTA & P bilat, [...] No - altered mental status JEREMI Keith, PASTEURIZING MACHINE OPERATOR-S Draw Bench Operator, Emergency Dept. * МАРИЯ Pete - 11/07/2024 1:44 PM EDT Trauma Response Per EMS ([facility] 5), patient is Sarah Mcguire 41 Family is not present. EMS states daughter is en route. Pastoral presence provided. Rev. Abraham Stokes M.Div., [place], [facility] [phone] (office) Chaplains are available 27/12 by paging [phone]. 11/07/24 1315 Clinical Encounter Type Visited With Health Care Provider;Patient Visit Type Introduction Crisis Visit Trauma Pastoral Time Spent 15 min Referral Automated Page Interventions Provided Active listening;Supportive presence Plan of Care Continue [facility]iting [facility] Plan of care note* Plan of [...] safely navigate home and community. Outcome: Progressing [facility]06-09-2025 Plan of care note* Plan of [...] or less cues for accuracy. Outcome: Progressing [facility]06[facility]09[facility] Plan of care note* Plan of Care - Shanna Benavides RN - 11/12/2024 9:00 AM EDT Problem: Adult Inpatient Plan of Care Goal: Optimal Comfort and Wellbeing Intervention: Provide Person-Centered Care Flowsheets (Taken 11/12/2024 0859) Trust Relationship/Rapport: care explained emotional support provided empathic listening provided questions answered [facility]06-08-2025 Plan of care note* Plan of [...] Progressing Problem: Mobility Impairment Goal: Optimal Mobility [place] and Safety Outcome: Progressing Problem: Communication Impairment Goal: Effective Communication Skills Outcome: Progressing [facility]06-07-2025 Nurse Note* Nursing Notes - Greta [...] (%) 98 % 97 % 98 % [facility] Plan of care note* Plan of [...] Progressing Problem: Mobility Impairment Goal: Optimal Mobility [place] and Safety Outcome: Progressing [facility]06-07[facility] Nurse Note* Nursing Notes - Greta [...] Device room air room air room air [facility]06-06[facility] Plan of care note* Plan of [...] or less cues for accuracy. Outcome: Progressing [facility]06[facility] Plan of care note* Plan of [...] safely navigate home and community. Outcome: Ongoing [facility] Plan of care note* Plan of [...] less cues for accuracy. Outcome: Ongoing [facility]06-06-20[facility] Consult note* Jagdish Galindo Jr., MD [...] Jagdish Galindo MD PGY-4 Internal Medicine-Pediatrics [facility] Pager #: [phone] Reason for consult - 78 yo F [...] Interviewed the patient and adult daughter at [facility], and they relate that she was in [...] for the flight team. Admitted to the [facility] with neurosurgery consultation, received Kcentra at OSH. Daughter and patient confirm the above information at bedside, adding that the word finding issues have been an ongoing recent problem. 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 Postoperatively, she has [...] word finding issue suddenly worsened while at [facility] study as above. She did not note any other neurologic deficits. S States that the noted intracranial hematoma appears to be old (I.e. a prior known hematoma collection from 2022 related to a meningioma resection completed at that time). Of note, daughter also reports that they follow with a non-[facility] greens cutter in their home town, adding that her HR has been muchlower than baseline over the past 2-4 weeks. Medications history reviewed with adult daughter, and she is currently taking amiodarone and apixaban for pAF, previously taking 2.5 mg lisinopril but not currently, currently taking doxazosin for HTN, and carvedilol 12.5 mg BID per her greens cutter. 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 Constitutional: Appears well. [place] at baseline, No acute distress. Weight appropriate [...] the geriatric consult service. Pebbles Gu MD Production Control Manager of Clinical Medicine Geriatric Medicine [address] [facility] Work Phone: 1(396) 578-165006-06-2025 Consult note* Jagdish Galindo Jr., MD - [...] cardiology Jagdish Galindo MD PGY-4 Internal Medicine-Pediatrics [facility] Pager #: [phone] Reason for consult - 78 yo F [...] Interviewed the patient and adult daughter at [facility], and they relate that she was in [...] for the flight team. Admitted to the [facility] with neurosurgery consultation, received Kcentra at OSH. Daughter and patient confirm the above information at bedside, adding that the word finding issues have been an ongoing recent problem. 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 Postoperatively, she has [...] word finding issue suddenly worsened while at [facility] study as above. She did not note any other neurologic deficits. S States that the noted intracranial hematoma appears to be old (I.e. a prior known hematoma collection from 2022 related to a meningioma resection completed at that time). Of note, daughter also reports that they follow with a non-[facility] greens cutter in their home town, adding that her HR has been muchlower than baseline over the past 2-4 weeks. Medications history reviewed with adult daughter, and she is currently taking amiodarone and apixaban for pAF, previously taking 2.5 mg lisinopril but not currently, currently taking doxazosin for HTN, and carvedilol 12.5 mg BID per her greens cutter. 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 Constitutional: Appears well. [place] at baseline, No acute distress. Weight appropriate [...] the geriatric consult service. Pebbles Gu MD Production Control Manager of Clinical Medicine Geriatric Medicine [id number] * Greta Tabares MD - 11/07/2024 4:26 PM EDT TRAUMA SERVICES - TRA[facility]MA H & P Patient Name: Sarah Mcguire 78 y.o. female Date of Evaluation: 11/07/2024 Trauma Attending: Dr. Bailey QAWALANGIN: TRAUMA LEVEL: Level 2 Trauma Inter-facility Transfer: Bee Mcguire is a 78 y.o. female transported to [facility] s/p slurred speech and c/f possible head [...] Surgeon: Saray Key MD, PhD; Location: [facility] MAIN OR CRANIOPLASTY FOR SKULL DEFECT Left 11/16/2022 Laterality: Left; Surgeon: Saray Key MD, PhD; [facility] SKULL LESION TUMOR W/ CRANIECTOMY W/ OR W/O GRAFT Left 10/13/2022 Laterality: Left; Surgeon: Ernie Kincaid MD; [facility] BREAST REDUCTION 1996 BREAST LUMPECTOMY [...] Admission: Handoff Called to Fellow - Pager [phone] [employer] [phone] If there are any questions or concerns, please see the treatment team or page the Consult Resident #[id number] (Web Exchange, search Acute Care Surgery > [...] the patient, available family, medical records, or client support professional. I agree with resident exam, assessment and [...] geriatric consult. Signed Smiley Bailey MD MPH tight rope walker Division of Trauma, Critical Care, Burn * [...] later with [facility] Salazar [facility] observed on [facility] CTH in the context ofword find difficulties at [facility] study. OSH CTH showed a 1.2 cm [...] < 160 Staff: Dr. Kincaid Covering: NS1 ([id number]) ## neurosurgery coverage changes at 0530/1730; if [...] 9:48 AM EDT [facility] Consult note* Jagdish Galindo Jr., MD [...] Jagdish Galindo MD PGY-4 Internal Medicine-Pediatrics [facility] Pager #: [phone] Reason for consult - 78 yo F [...] Interviewed the patient and adult daughter at [facility], and they relate that she was in [...] for the flight team. Admitted to the [facility] with neurosurgery consultation, received Kcentra at OSH. Daughter and patient confirm the above information at bedside, adding that the word finding issues have been an ongoing recent problem. 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 Postoperatively, she has [...] [facility]. She did not note any other neurologic deficits. S States that the noted intracranial hematoma appears to be old (I.e. a prior known hematoma collection from 2022 related to a meningioma resection completed at that time). Of note, daughter also reports that they follow with a non-[facility] greens cutter in their home town, adding that her HR has been muchlower than baseline over the past 2-4 weeks. Medications history reviewed with adult daughter, and she is currently taking amiodarone and apixaban for pAF, previously taking 2.5 mg lisinopril but not currently, currently taking doxazosin for HTN, and carvedilol 12.5 mg BID per her greens cutter. 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 Constitutional: Appears well. [place] at baseline, No acute distress. Weight appropriate [...] the geriatric consult service. Pebbles Gu MD Production Control Manager of Clinical Medicine Geriatric Medicine [id number] * Greta Tabares MD - 11/07/2024 4:26 PM EDT TRAUMA SERVICES - TRAUMA H & P Patient Name: Sarah Mcguire 78 y.o. female Date of Evaluation: 11/07/2024 Trauma Attending: Dr. Bailey QAWALANGIN: TRAUMA LEVEL: Level 2 Trauma Inter-facility Transfer: No Sarah Mcguire is a 78 y.o. female transported to [facility] s/p slurred speech and c/f possible head [...] Admission: Handoff Called to Fellow - Pager [phone] [place] [phone] If there are any questions or concerns, please see the treatment team or page the Consult Resident #[phone] (Web Exchange, search Acute Care Surgery > [...] the patient, available family, medical records, or client support professional. I agree with resident exam, assessment and [...] geriatric consult. Signed Smiley Bailey MD MPH tight rope walker Division of Trauma, Critical Care, Burn * [...] < 160 Staff: Dr. Kincaid Covering: NS1 ([id number]) ## neurosurgery coverage changes at 0530/1730; if [...] 9:48 AM EDT [facility] Discharge instructions* Discharge Instructions* Shannon Werner RN - 11/09/2024 9:18 AM EDT Patient Experience Survey Reminder You may receive a survey in the mail within a few weeks regarding your hospitalization. This helps us to improve the care and services we provide at [facility]. We truly appreciate you taking the time to fill this out. We particularly welcome any specific comments you may have (good or bad!) [facility] so that we may use them to continue to strive towards excellence for our patients. documented [facility] Hospital Discharge instructions* Discharge Instructions* Shannon Werner RN - 11/09/2024 9:18 AM EDT Patient Experience Survey Reminder You may receive a survey in the mail within a few weeks regarding your hospitalization. This helps us to improve the care and services we provide at [facility]. We truly appreciate you taking the time to fill this out. We particularly welcome any specific comments you may have (good or bad!) regarding [facility] so that we may use them to continue to strive towards excellence for our patients. documented in this encounterOSU [facility] Procedure note* FABY Jacques - 11/09/2024 [...] this period of recording. Brittaney Ferraro MD Production Control Manager Department of Neurology and Epilepsy [facility] Work Phone: [phone] 325-462806-06-2025 Procedure note* FABY Jacques - 11/09/2024 8:56 [...] this period of recording. Brittaney Ferraro MD Production Control Manager Department of Neurology and Epilepsy [facility] documented in this encounterOSU [facility]06-[facility] Procedure note* FABY Jacques - 11/09/2024 [...] this period of recording. Brittaney Ferraro MD Production Control Manager Department of Neurology and Epilepsy [facility] documented in this encounterOSU [facility]06-[facility] Plan of care note* [...] questions. Andrew Chopra MD, Neurosurgery NS1 ([id number]) [facility] Work Phone: 1(319) 694-684306-05-2025 Plan of care note* Plan of Care - Joce Calvo RN - 11/08/2024 9:06 PM EDT Problem: Adult Inpatient Plan of Care Goal: Plan of Care Review Outcome: Progressing Goal: Patient-Specific Goal (Individualized) Outcome: Progressing Goal: Absence of Hospital-Acquired Illness or Injury Outcome: Progressing Goal: Optimal Comfort and Wellbeing Outcome: Progressing Goal: Readiness for Transition of Care Outcome: Progressing [facility]06-05-2025 Nurse Note* Nursing Notes - Shelby Mae RN - 11/08/2024 4:46 PM EDT Images from the original note were not included. On admission to [facility], from ED a dual RN initial assessment of skin condition was performed by MICAH Rivera and Teresa Long RN. Skin Assessment: Skin not within defined limits. - Photo taken and uploaded into notes in IHIS: Yes Brent Score: 16 LDA Added:No Shelby Mae RN Right heel blanchable [facility]06-05-2025 History and physical note* JESSIE Bone [facility] - 11/08/2024 2:23 PM EDT Hospital Medicine Admission History & Physical Patient: Sarah Mcguire, 1945, [id number] Physician: JESSIE Bone [facility], Attending Physician Date of face to face [...] IV keppra BID. Plan [facility]. REVIEW OF SYSTEMS Constitutional (- fever, chills, [...] no ST segment changes Signed, JESSIE Bone [facility] Production Control Manager of Internal Medicine Division of Hospital Medicine [facility]06-05-2025 History and physical note* JESSIE Bone [facility] - 11/08/2024 2:23 PM EDT Hospital Medicine Admission History & Physical Patient: Sarah Mcguire, 1945, [id number] Physician: JESSIE Bone [facility], Attending Physician Date of face to face [...] IV keppra BID. Plan to admit to [facility]. REVIEW OF SYSTEMS Constitutional (- fever, chills, [...] no ST segment changes Signed, JESSIE Bone [facility] Production Control Manager of Internal Medicine Division of Hospital Medicine [facility] documented in this [facility]OS[facility]06-[facility]-2025 History and physical note* JESSIE Bone [facility] - 11/08/2024 2:23 PM EDT Hospital Medicine Admission History & Physical Patient: Sarah Mcguire, 1945, [id number] Physician: JESSIE Bone [facility], Attending Physician Date of face to face [...] IV keppra BID. Plan to admit to [facility]. REVIEW OF SYSTEMS Constitutional (- fever, chills, [...] no ST segment changes Signed, JESSIE Bone [facility] Production Control Manager of Internal Medicine Division of Hospital Medicine [facility] documented in this [facility]06-[facility]-2025 Emergency department Note* Ann Diaz RN - 11/08/2024 12:07 PM EDT Pt has been germania- HR 42-49. Dr Johnson aware. No intervention as long at pt is saturating appropriately [facility]06-05-2025 Emergency department Note* Ann Diaz RN [...] eNCOUnter Patient: Sarah Mcguire : 1945 MR#: [id number] Primary Care Provider: Monika Venegas Date of Exam: 11/07/2024 CHIEF COMPLAINT No chief complaint on file. HPI Sarah Mcguire is a 78 y.o. 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 Brief History: Patient had slurred speech, unsteady gait while at [facility] study. 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 Cindy Coffey MD Resident 11/07/24 9812 * Lopez Farnsworth RN - 11/07/2024 1:30 PM EDT Bed: E021 Expected date: Expected time: Means of arrival: Comments: 34 * Octavio Pinon [facility] - 11/07/2024 1:28 PM EDT Department of Pharmacy - Trauma Note Patient: Sarah Mcguire Room/Bed: E034/E034 Level 2 trauma s/p Fall with SDH found at [facility] Medications received prior to arrival: Balfaxar 2500 units @1130 Prophylactic Antibiotics: n/a Tetanus: N/A Patient is on eliquis. Please feel free to contact me with any further questions. Name: Octavio Pinon [facility] Phone #: [phone] Date/Time: 11/07/2024 1:29 PM * Ignacio De [...] obeys commands Best Verbal Response: 5-->(V5) oriented [place] Coma Scale Score: 15 Primary Assessment Airway [...] EKG Interpretation Rhythm: normal sinus Rate: normal [place]: normal Ectopy: none Conduction: normal ST Segments: [...] 0.69 (L) 1.16 - 3.51 K/uL Abs [place] Auto 0.62 0.22 - 0.87 K/uL Abs [...] to Level 2 Trauma brought in by [facility] 5 after patient fell. Emergency Contacts: Alexsandra, child [phone] Per EMS patient's daughter is en route to [facility]. SW will be available for support as needed while patient is in the ED. Edy Constantino MSW, MBA INTERNS[employer] Medical Social Work * Minna Swenson RN - 11/07/2024 1:05 PM EDT Patient arrives to trauma bay now. [facility]urred speech[facility] PMH intracranial bleed, craniotomy for tumor [...] clarify BP parameters documented in this encounterOSU [facility]06[facility] Emergency department Note* Ann [...] eNCOUnter Patient: Sarah Mcguire : 1945 MR#: [id number] Primary Care Provider: Monika Venegas Date of Exam: 11/07/2024 CHIEF COMPLAINT No chief complaint on file. HPI Sarah Mcguire is a 78 y.o. 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 Brief History: Patient had slurred speech, unsteady gait while at [facility] study. 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 Cindy Coffey MD Resident 11/07/24 1654 * Lopez Farnsworth RN - 11/07/2024 1:30 PM EDT Bed: E021 Expected date: Expected time: Means of arrival: Comments: 34 * Octavio Pinon [facility] - 11/07/2024 1:28 PM EDT Department of Pharmacy - Trauma Note Patient: Sarah Mcguire Room/Bed: E034/E034 Level 2 trauma s/p Fall with SDH found at [facility] Medications received prior to arrival: Balfaxar 2500 units @1130 Prophylactic Antibiotics: n/a Tetanus: N/A Patient is on eliquis. Please feel free to contact me with any further questions. Name: Octavio Pinon RPH Phone #: [phone] Date/Time: 11/07/2024 1:29 PM * Ignacio De [...] obeys commands Best Verbal Response: 5-->(V5) oriented [place] Coma Scale Score: 15 Primary Assessment Airway [...] EKG Interpretation Rhythm: normal sinus Rate: normal [place]: normal Ectopy: none Conduction: normal ST Segments: [...] 0.69 (L) 1.16 - 3.51 K/uL Abs [place] Auto 0.62 0.22 - 0.87 K/uL Abs [...] to Level 2 Trauma brought in by Rem[facility] 5 after patient fell. Emergency Contacts: Alexsandra, child [phone] Per EMS patient's daughter is en route to [facility]. SW will be available for support as needed while patient is in the ED. Edy Constantino MSW, MBA INTERNSH[employer] Medical Social Work * Minna Swenson RN - 11/07/2024 1:05 PM EDT Patient arrives to trauma bay now. Slurred speech, unsteady gait while at [facility] study. PMH intracranial bleed, craniotomy for tumor [...] clarify BP parameters documented in this encounterOSU [facility]06-[facility]25 Emergency department Note* Ann Diaz RN - 11/08/2024 8:[address] Johnson, pt is allowed to eat. Pt given breakfast. Pt passed bedside swallow. [facility]06[facility] Emergency department Note* Nalini Barnett RN - 11/08/2024 6:15 AM EDT Pt incontinent at this time. Total linen change, new brief and purwick in place. [facility]06-[facility] Emergency department Note* Tiff Rodriguez RN - 11/07/2024 6:05 PM EDT Pt states dull pain across forehead that is new, no changes in neuro exam. Md notified [facility]06-04-2025 Consult note* Greta Tabares MD - 11/07/2024 4:26 PM EDT TRAUMA SERVICES - TRAUMA H & P Patient Name: Sarah Mcguire 78 y.o. female Date of Evaluation: 11/07/2024 Trauma Attending: Dr. Bailey QAWALANGIN: TRAUMA LEVEL: Level 2 Trauma Inter-facility Transfer: No Sarah Mcguire is a 78 y.o. female transported to [facility] s/p slurred speech and c/f possible head [...] Admission: Handoff Called to Fellow - Pager [phone] [employer] [phone] If there are any questions or concerns, please see the treatment team or page the Consult Resident #[phone] (Web Exchange, search Acute Care Surgery > [...] the patient, available family, medical records, or client support professional. I agree with resident exam, assessment and [...] geriatric consult. Signed Smiley Bailey MD MPH tight rope walker Division of Trauma, Critical Care, Burn [facility] Work Phone: 1(269) 959-227406-04-2025 Consult note* Ernie Bowens MD - 11/07/2024 [...] < 160 Staff: Dr. Kincaid Covering: NS1 ([id number]) ## neurosurgery coverage changes at 30/1730; if 0530 or 1730 has passed since original consult note placed, please page covering pager above ## Complexity. Hyponatremia - Secondary to fluid shifts. Monitor. Hypocalcemia - Continue to monitor and replete. Wound Documentation Any conditions listed below are present on admission unless otherwise specified. . Cosigned by Ernie Kincaid MD at 11/08/2024 9:48 AM EDT [facility] Work Phone: 1(740) 788-257706-04-2025 NoteAcute Coronary Syndrome (ACS): Initial Evaluation and Management: [email or web address]/sites/ebm/Documents/Guidelines/Acute%20Coronary%20Sy ndrome.pdf#search=troponin [facility]06-04-2025 NoteAcute Coronary Syndrome (ACS): Initial Evaluation and Management: [email or web address]/sites/ebm/Documents/Guidelines/Acute%20Coronary%20Sy ndrome.pdf#search=troponin [facility]06-04-2025 Emergency department Note* Minna Swenson RN - 11/07/2024 1:31 PM EDT Transport to [place] on monitor with RN, Resident. [facility]06-04-2025 Physician Emergency department Note* Cindy Coffey MD - 11/07/2024 1:30 PM EDT eMERGENCY dEPARTMENT eNCOUnter Patient: Sarah Mcguire : 1945 MR#: [id number] Primary Care Provider: Monika Venegas Date of Exam: 11/07/2024 CHIEF COMPLAINT No chief complaint on file. HPI Sarah Mcguire is a 78 y.o. 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 Cindy Coffey MD Resident 11/07/24 3398 [facility] Work Phone: 1([phone]) 919-836006-04-2025 Emergency department Note* Lopez Farnsworth RN - 11/07/2024 1:30 PM EDT Bed: E021 Expected date: Expected time: Means of arrival: Comments: 34 [facility]06-04-2025 Emergency department Note* Octavio Pinon [facility] - 11/07/2024 1:28 PM EDT Department of Pharmacy - Trauma Note Patient: Sarah Mcguire Room/Bed: E034/E034 Level 2 trauma s/p Fall with SDH found at [facility] Medications received prior to arrival: Balfaxar 2500 units @1130 Prophylactic Antibiotics: n/a Tetanus: N/A Patient is on eliquis. Please feel free to contact me with any further questions. Name: Octavio Pinon Praful Phone #: [phone] Date/Time: 11/07/2024 1:29 PM [facility]06-04-2025 Physician Emergency department Note* Ignacio De [...] (Oral) Resp 20 SpO2 98% Smoking StatusNever [place] Coma Scale Best Eye Response: 4-->(E4) spontaneous Best Motor Response: 6-->(M6) obeys commands Best Verbal Response: 5-->(V5) oriented [place] Coma Scale Score: 15 Primary Assessment Airway [...] EKG Interpretation Rhythm: normal sinus Rate: normal [place]: normal Ectopy: none Conduction: normal ST Segments: [...] 0.69 (L) 1.16 - 3.51 K/uL Abs [place] Auto 0.62 0.22 - 0.87 K/uL Abs [...] La Garza Sr., MD, PhD 11/07/24 1628 [facility] Emergency department Note* Minna Swenson RN - 11/07/2024 1:25 PM EDT Cardene 5 mg/hr started now. [facility] Emergency department Note* KEY Fuentes - 11/07/2024 1:18 PM EDT SW [facility] Emergency Contacts: Alexsandra, child [phone] Per EMS patient's daughter is en route to [facility]. SW will be available for support as needed while patient is in the ED. Edy BLOOD, [facility] Medical Social Work [facility] Emergency department Note* Minna Swenson RN - 11/07/2024 1:05 PM EDT Patient arrives to trauma bay now. Slurred speech, unsteady gait while at [facility] study. PMH intracranial bleed, craniotomy for tumor (2022). 200/60 on EMS arrival. Improved to 170 en route. [facility] 1 at OSH but 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 [facility] Emergency department Note* Minna Swenson RN - 11/07/2024 12:53 PM EDT Patient roomed for ordering purposes. [facility]06-[facility] Emergency department Note* Nalini Barnett RN - 11/07/2024 11:40 AM EDT Neuro surg provider paged at this time to clarify BP parameters at this time. [facility]06-04-20[facility] Radiology Diagnostic study note [facility] Imaging Services [address] [place], [place] [address] STROKE Brain/Head without Cont MR#: [id number] Acct: [id number] Name: SARAH MCGUIRE Rep #: [id number] : 1945 F 78 From: Abbe Gonzalez MD PCP: Dr. Monika Venegas MD Status: REG ER Study:STROKE Brain/Head without Cont Date of Exam: 11/07/24 Exam# [id number] Ordering Dr: Mario Anand MD PROCEDURE: STROKE [...] areas infarction, of uncertain age. Reading Location: [id number] CC: Dr. Monika Venegas MD; Dr. Dallas Anand MD ~ Electric Operator: Signed [facility]06-04-2025 Emergency department Note* Nalini Barnett RN - 11/07/2024 11:00 AM EDT Neuro surg provider paged at this time to clarify BP parameters [facility]04-24-2025 Discharge summary [facility] Medical Records Department [address] [place] [address] Emergency Department Summary 09/27/24 MR#: [id number] Acct: [id number] Name: SARAH MCGUIRE Rep #:[id number] : 1945 78 From: Hayden Sadler DO [...] her surgery and from the ride from [facility] to [place] and December 2022 she notedthat she has had some numbness and tingling periodically in her left arm but today this felt different therefore her daughter brought her here for further evaluation management. She states that she was sitting eating breakfast when this occurred. Patient states that she is anxious about her symptoms. She states that she is on Eliquis. [facility] Medical History Mitral valve stenosis, non-rheumatic [...] follow commands knew that she was at [facility] 2024 Skin: Warm, dry, intact Const [...] processes. Did discuss his case with on-call greens cutter Dr. Calderon who states that she canfollow-up [...] 78.7 H Lymph % (Auto) 10.8 L [place] % (Auto) 8.3 Eos % (Auto) 1.1 [...] No acute abnormality is seen. Reading Location: [place] [address] Discharge Plan Triage Chief Complaint: Chest Pain [...] symptoms or any other concerns. Print Language: [place] Disposition Disposition: Home, Self Care What to do if you have Problems For any increased pain, shortness of breath, bleeding, nausea or vomiting, chestpain, or any unexpected problems, contact your Primary Care Provider. Call [facility] ([phone]) or report tothe closest Emergency Room. Call 911 if necessary. 09/27/24 1330 Cosigner Signature (if applicable): CC: Dr. Monika Venegas MD ~ Signed [facility]04-24-2025 Radiology Diagnostic study note [facility] [address] [place] [place], [place] [address] Chest PA and Lateral MR#: [id number] Acct: [id number] Name: SARAH MCGUIRE Rep #: [id number] : 1945 F 78 From: Heri Bradshaw MD PCP: Dr. Monika Venegas MD Status: REG ER Study:Chest PA and Lateral Date of Exam: 09/27/24 Exam# [id number] Ordering Dr: Raheem Sadler DO PROCEDURE: CHEST [...] No acute abnormality is seen. Reading Location: [place] [address] CC: Dr. Monika Venegas MD; Dr. Hayden Sadler DO ~ Electric Operator: Signed [facility]02-05-2025 History of Present illness Narrative* Annelise [...] YOUR HEALTH TODAY= 65% * Karen Trejo, CEMENTING BULK MATERIAL OPERATOR-INTERNET NETWORK SPECIALIST - 07/11/2024 11:00 AM EST RADIATION ONCOLOGY [...] XII are intact grossly and symmetrically EXCEPT [place] OF PICURIS in the left ear. No focal neurologic [...] to Meningioma of scalp 60-75Gy in 30fx czwvipkjw04/11/23. She presents today with her daughter for [...] this visit by the LOIS. LOIS Clarke, [facility] Department of Radiation Oncology Pager #[phone] * Andrew Bueno MD - 07/11/2024 11:00 [...] COMPLETION OF TREATMENT: 1 year Interval History: Sarha Mcguire is a 78 y.o. female with [...] with the discharge instructions. [facility] in [facility] Instructions* Patient Instructions* Annelise Rogers RN - 07/11/2024 11:00 AM EST It was a pleasure to see you today! We will contact you if there are any concerning findings on the final read of your MRI completed today. Please call our office if you develop any new or worsening symptoms in the interim. [phone]. Please schedule a MRI brain prior to follow up with Dr. Bueno in 4 months. Referral placed for dermatology. documented in this [facility]-2024 NoteEXAM: NUC PET NEUROENDOCRINE, 03/14/2024 10:34 AM CLINICAL INDICATIONS: grade 2 meningioma eval for progression; , COMPARISON: PET/CT 01/12/23.MRI brain 11/29/23 CT DOSE: DLP: 453 mGy x cm kVp: 120 TECHNIQUE: Approximately 65 minutes following the injection of 2.6 mCi of Gallium-68 Dotatate, the patient was positioned on the Siemens AdReadygraph mCT TOF< PET/CT-64, Ulices imaging unit.. A [...] although residual/recurrent disease cannot be entirely excluded. [facility]10-09-2024 History of Present illness Narrative * Kristine Blue, CEMENTING BULK MATERIAL OPERATOR-INTERNET NETWORK SPECIALIST - 03/14/2024 3:00 PM EDT RADIATION ONCOLOGY [...] Dr. Bueno, attending physician. Kristine ABREU, pager [phone] * Andrew Bueno MD - 03/14/2024 3:00 PM EDT Radiation Oncology Attending Addendum: I saw and independently examined this patient today on 03/14/2024. I discussed my findings and the therapeutic plan with Radiation Oncology Nurse Practitioner, Kristine Blue, CEMENTING BULK MATERIAL OPERATOR,INTERNET NETWORK SPECIALIST. I agree with her history, physical examination, [...] with the discharge instructions. Andrew Bueno MD Patch Driller Department of Radiation Oncology Pager: [phone] Office: [phone] * Annelise Rogers RN - 03/14/2024 3:00 [...] YOUR HEALTH TODAY= 75% documented in this [facility]10-09-2024 Instructions* Patient Instructions* Annelise Rogers RN - 03/14/2024 3:00 PM EDT Please return in 3 month MRI and follow up with Dr. Bueno documented in this [facility]06-25-2024 History of Present illness Narrative* Annelise Rogers [...] YOUR HEALTH TODAY= 85% * Kristine Blue APRN-INTERNET NETWORK SPECIALIST - 11/29/2023 2:30 PM EDT RADIATION ONCOLOGY [...] Bueno, attending physician. Kristine Blue APRN-AGNIESZKA, pager [phone] * Andrew Bueno MD - 11/29/2023 2:30 [...] with Tylenol), balance difficulty (plan to restart [place] this week), dizziness with position change, left [...] with the discharge instructions. Andrew Bueno MD Patch Driller Department of Radiation Oncology Pager: [phone] Office: [phone] documented in this [facility]06-[facility]-2024 Instructions* Patient Instructions* LOIS Middleton - 11/29/2023 2:30 PM EDT It was a pleasure to see you today! Please call our office if you develop any new or worsening symptoms in the interim. [phone]. Please schedule a MRI Brain and Neuroendocrine PET scan prior to follow up with Dr. Bueno in 3 months. documented in this [facility] History of Present illness Narrative* Cherrie [...] with Dr. Bueno, attending physician. Kristine Blue APRNNEW ENGLAND REHABILITATION [facility], pager [phone] Radiation Oncology Attending Addendum: I saw and independently examined this patient today on 05/19/2023. I discussed my findings and the therapeutic plan with Radiation Oncology VP DIRECTOR OF FINANCE, Kristine. I agree with her history, physical [...] should any questions arise. Andrew Bueno MD Patch Driller Department of Radiation Oncology Pager: [phone] Office: [phone] * Cherrie Mendoza RN - 05/19/2023 2:30 [...] did not fill out documented in this [facility]Western [facility]12-[facility]23 Instructions* Patient Instructions* Kristine Blue APRN-INTERNET NETWORK SPECIALIST - 05/19/2023 2:30 PM EST It was a pleasure to see you today! Please call our office if you develop any new or worsening symptoms in the interim. [phone]. Please schedule a MRI prior to follow up with Dr. Bueno in 3 months. documented in this [facility] History of Present illness Narrative* Annelise Rogers [...] grossly unchanged from prior examination, no focal PARKER findings. Labs: Lab Results Component Value Date [...] radiation therapy as planned. Andrew Bueno MD Production Control Manager Department of Radiation Oncology documented in this encounterOS[facility] Instructions* Patient Instructions* Annelise Rogers RN - 03/15/2023 10:00 AM EDT Please return in 2 months with repeat brain MRI and follow up with Dr. Bueno on same day! (Patientcan do Mondays) documented in this encounterWestern [facility]10-03-2023 History of Present illness Narrative* Annelise [...] Ameya Singh MD documented in this encounterU [facility] History of Present illness Narrative* Annelise [...] planned. Julian Siddiqui MD Radiation Oncology Resident Pager:[phone] On Treatment Visit Addendum: I saw and [...] radiation therapy as planned. Andrew Bueno MD Patch Driller Department of Radiation Oncology [facility] documented in this [facility]09-12-2023 History of Present illness Narrative* Annelise Rogers [...] planned. Julian Siddiqui MD Radiation Oncology Resident Pager:[phone] On Treatment Visit Addendum: I saw and [...] radiation therapy as planned. Andrew Bueno MD Patch Driller Department of Radiation Oncology [facility] documented in this [facility]-2023 History of Present illness Narrative* Annelise Rogers [...] grossly unchanged from prior examination, no focal PARKER findings. Labs: Lab Results Component Value Date [...] radiation therapy as planned. Andrew Bueno MD Production Control Manager Department of Radiation Oncology documented in this encounterWestern [facility] Hospital08-16-2023 History of Present illness Narrative* Annelise [...] Annelise Rogers RN documented in this encounterOSU [facility]08-16-2023 Instructions* Patient Instructions* Annelise Rogers RN [...] will see you each TUESDAY at [facility] after your treatment for your [...] for a ticket each day. This includes generator repairer parking. You will be given information on reserved parking in the [place]ages. You will be given a special wrist band today that you can use to check in for your treatments. You do not need to go to registration before each radiation treatment. If you have appointments with anyother department at [facility], you must go to registration prior to those appointments. Please call the radiation clinic at [phone] with any questions or concerns. You can also contact your physician via My Chart with any non-urgent issues. My Chart messages are only reviewed during regular business hours. documented in this encounterWestern Reserve Hospital08-16-2023 History of Present illness Narrative* Annelise [...] HISTORY OF PRESENT ILLNESS: As you know, Sraah Mcguire is a 77 y.o. 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 Andrew Bueno MD Patch Driller Department of Radiation Oncology Pager: [phone] Office: [phone] documented in this [facility]07-17-2023 Progress note Author Jo-Ann Hsiehjenny [facility] December 20, 2022 3:46pm Note Date/Time December 20, 2022 12:1 3pm [facility] Medical Records Department [address] [place] [address] Progress Note 12/20/22 1208 MR#: [id number] Acct: [id number] Name: SARAH MCGUIRE Rep #:[id number] : 1945 77 From: Jo-Ann Arias DO PCP: Dr. Monika Venegas MD Status:ADM IN Location: [place] [address] Subjective Subjective Afebrile VSS Maintaining appropriate oxygen [...] cough suppressant. Charges/Coding Visit Charges Inpatient E&M: 76607 Subs Hosp L2 12/20/22 1528 <Electronically signed [...] Signature (if applicable): Date cc: ~* Signed [facility] Work Phone: 1(463) 267-822907-15-2023 Progress note Author Jo-Ann Sementi [facility] December 18, 2022 11:48am Note Date/Time December 17, 2022 6:46 pm [facility] Medical Records Department [address] [place] [address] Progress Note 12/17/22 1844 MR#: [id number] Acct: [id number] Name: SARAH MCGUIRE Rep #:[id number] : 1945 77 From: Jo-Ann Arias DO PCP: Dr. Monika Venegas MD Status:ADM IN Location: [place] [address] Subjective Subjective Afebrile VSS Maintaining appropriate oxygen [...] on Tuesday. Charges/Coding Visit Charges Inpatient E&M: 77698 [facility] Hosp L1 12/18/22 1148 <Electronically signed by Jo-Ann Arias DO> Jo-Ann Arias DO Cosigner Signature (if applicable): CC: ~ Signed [facility] Work Phone: 1(352) 448-429307-15-2023 Progress note Author Jo-Ann [facility] December 18, 2022 11:42am Note Date/Time December 16, 2022 12:2 6pm [facility] Medical Records Department [address] [place] [address] Progress Note 12/16/22 1222 MR#: [id number] Acct: [id number] Name: SARAH MCGUIRE Rep #:[id number] : 1945 77 From: Jo-Ann Arias DO PCP: Dr. Monika Venegas MD Status:ADM IN Location: [place] [address] Subjective Subjective Sarah was seen on team [...] with meals. Charges/Coding Visit Charges Inpatient E&M: 90403 Subs Hosp L2 12/18/22 1142 <Electronically signed by Jo-Ann Arias DO> Jo-Ann Arias DO Cosigner Signature (if applicable): CC: ~ Signed [facility] Work Phone: 1(991) 766-415907-15-2023 Progress note Author Jo-Ann Arias [facility] December 18, 2022 11:30am Note Date/Time December 13, 2022 10:5 9am [facility] Medical Records Department [address] [place] [address] Progress Note 12/13/22 1053 MR#: [id number] Acct: [id number] Name: SARAH MCGUIRE Rep #:[id number] : 1945 77 From: Jo-Ann Arias DO PCP: Dr. Monika Venegas MD Status:ADM IN Location: [place] [address]-1 Subjective Subjective Afebrile VSS-systolic is mildly elevated [...] precautions discontinue. Charges/Coding Visit Charges Inpatient E&M: 25925 Subs Hosp L2 12/18/22 1170 <Electronically signed by Jo-Ann Arias DO> Jo-Ann Arias DO Cosigner Signature (if applicable): CC: ~ Signed [facility] Work Phone: 1(379) 970-126907-07-2023 Progress note Author Jo-Ann Arias [facility] December 10, 2022 8:52am Note Date/Time December 10, 2022 8:53a m [facility] Medical Records Department [address] [place] [address] Progress Note 12/10/22 0833 MR#: [id number] Acct: [id number] Name: SARAH MCGUIRE Rep #:[id number] : 1945 77 From: Jo-Ann MirelesEnoc Hugo PCP: Dr. Monika Venegas MD Status:ADM IN Location: [place] [address] Subjective Subjective Sarah was seen yesterday on [...] on Tuesday Charges/Coding Visit Charges Inpatient E&M: 55687 Subs Hosp L2 12/10/22 0852 <Electronically signed by Jo-Ann Arias DO> Jo-Ann Arias DO Cosigner Signature (if applicable): CC: ~ Signed [facility] Work Phone: 1(446) 662-482707-07-2023 History and physical note Author Jo-Ann Arias [facility] December 10, 2022 8:33am Note Date/Time December 08, 2022 4:34p m [facility] Medical Records Department [address] [place] [address] Post Admission Physician Radhika 12/08/22 1632 MR#: [id number] Acct: [id number] Name: SARAH MCGUIRE Rep #:[id number] : 1945 77 From: Jo-Ann Arias DO PCP: Dr. Monika Venegas MD Status:ADM IN Location: [place] [address] Admission Information Primary Diagnosis:: Physical debility secondary [...] Skin integrity and Medication Management Patient needs Staffing Recruiter/ Case Management for: Discharge Planning, Arranging Home [...] Cosigner Signature (if applicable): CC: ~ Signed [facility] Work Phone: 1(484) 769-406507-05-2023 History and physical note Author Jo-Ann Arias [facility] December 08, 2022 4:32pm Note Date/Time December 07, 2022 10:06 am [facility] Medical Records Department [address] [place] [address] History & Physical Exam 12/07/22 0946 MR#: [id number] Acct: [id number] Name: SARAH MCGUIRE Rep #:[id number] : 1945 77 From: Jo-Ann Arias DO PCP: Dr. Monika Venegas MD Status:ADM IN Location: [place] [address] HPI - General General Date of Admission: [...] and recommendation for acute inpt rehab at [facility] was made. 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 There were several small foci of acute [...] Needs a 30 day event monitor at [facility]. Afebrile VSS -blood pressures have ranged from 124/55 to 157/61 since admission to rehab. Heart rate has ranged from 79-102. Maintaining appropriate oxygen saturation on RA -97 to 99%. Oral intake is good. She ate 75 to 100% of her breakfast today. Oral intake [id number] since admission and this is in less [...] of 63. Triglycerides were within normal limits. [facility] Medical History (Updated 12/08/22 @ [...] -personally reviewed 30 day event monitor at [facility] C. difficile toxin/antigen C. difficile PCR isolation [...] a supplement. Charges/Coding Visit Charges Inpatient E&M: 69647 Init Hosp L3 12/08/22 1632 <Electronically signed by Jo-Ann Arias DO> Cosigner Signature (if applicable): CC: Dr. Monika Venegas MD; Dr. Jo-Ann Arias DO~ Signed [facility] Work Phone: 1(388) 342-787705-05-2023 History and physical note* Qian Ranlde MD - 10/08/2022 11:45 AM EDT History of Present Illness Ms. Mcguire is a 76 y.o. 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 1. HYPERTENSION- diangosed 6+yrs ago and has been controlled on current meds. BP Readings from Last 3 Encounters: 10/08/22 128/80 09/30/22 196/72 2. HYPERLIPIDEMIA - stable on statins for 6+ yrs. PLAN: No further cardiac testing needed. CARDIAC TESTING: EKG (10/08/2022): sinus bradycardia, HR:57, normal [place] interval, no acute abnormality. PULMONARY Social History [...] 1 capsule by mouth daily every morning. Vlcleafuc-Ybztptglnsx-Htb D (OSTEO BI-FLEX ONE PER DAY PO) [...] URINALYSIS REFLEX TO CULTURE PERFORMABLE EXTRA MICRO [place] ECG, CLINIC PERFORMED Lab A/P - Labs [...] proceed with scheduled surgery. 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 Mcguire is a 76 y.o. 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 1. HYPERTENSION- diangosed 6+yrs ago and has been controlled on current meds. BP Readings from Last 3 Encounters: 10/08/22 128/80 09/30/22 196/72 2. HYPERLIPIDEMIA - stable on statins for 6+ yrs. PLAN: No further cardiac testing needed. CARDIAC TESTING: EKG (10/08/2022): sinus bradycardia, HR:57, normal [place] interval, no acute abnormality. PULMONARY Social History [...] 1 capsule by mouth daily every morning. Mtnkovpls-Vopzdjtjmlq-Feo D (OSTEO BI-FLEX ONE PER DAY PO) [...] URINALYSIS REFLEX TO CULTURE PERFORMABLE EXTRA MICRO [place] ECG, CLINIC PERFORMED Lab A/P - Labs [...] proceed with scheduled surgery. 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 - [place] your teeth and rinse your mouth the [...] Information Management Department for all records requests. [phone] [phone] AVS/RF documented in this encounterWestern Reserve Hospital04-27-2023 History of Present illness Narrative* Emily [...] the original note were not included. [facility] Neurosurgery Oncology Clinic Dr. Ernie Kincaid MD Professor, Department of Neurosurgery Director of Neurosurgical Oncology [facility] and [place] [address] NEW PATIENT VISIT NOTES Leon Mcguire is a 76 y.o. female with PMH of HTN, HDL, no cancer history who was recently diagnosed with a Left frontotemporal skull lesion that presents to [facility] Neurosurgery Oncology Clinic for consultation. Pt felt [...] tablet Take 1 tablet by mouth daily. Mimyttkhi-Bpdmezbmeby-Dgz D (OSTEO BI-FLEX ONE PER DAY PO) [...] cancer history who presents today to [facility] NeurosurgeryOncology Clinic for a consultation related to [...] order CT CAP and refer to the [facility] Diagnostic Oncology Clinic. We will see patient [...] of the clinic visit. The nurse practitioner/physician ophthalmology assistant and I have spoken with the patient and provided written and verbal instructions for the patient. The above note has been reviewed and I agree with the assessment and plan. Ernie Kincaid MD documented in this encounterWestern Reserve Hospital04-27-2023 Instructions* Patient Instructions* Hansa Nice RN - 09/30/2022 12:00 PM EDT We are here to assist you through your care at [facility] and Noman Villegas [facility]! Your Care Team from today's visit included: Neurosurgeon- Dr. Santosh Kincaid Nurse Practitioner- Shaye Weston APRN-INTERNET NETWORK SPECIALIST Primary Nurse - ROSETTA Hall, RN The Neurosurgery clinic and scheduling staff can be reached at [phone]. Please call if you develop new or worsening symptoms, also with any additional questions regarding your visit today or if you need to contact the doctor. You will speak with a baggage smasher, who will take a message and forward [...] weekends, and/or during a holiday please call [phone] and speak with the after-hours service. You will be connectedto the neurosurgery resident public relations specialist. New or worsening neurological symptoms can include, but are not limited to: weakness, confusion, difficulty walking, vision/hearing/speech changes, seizures or extremity tremors, and persistent headaches. If it is an emergency you will need to go to your local ER. Ask them to fax your records to us so that we can update our team, fax number [phone]. If you experience seizures affecting the whole [...] our office. Documentation can be faxed to [phone]. Your feedback is important to our team. [...] condition. You will receive this questionnaire via [employer]. Please complete so your providers at [facility] can better help you! documented in this encounterOSU [facility] HospitalDischarge summary Author Hayden Sadler [facility] Note Date/Time September 27, 2024 1:3 0pm [facility] Medical Records Department [address] [place] [address] Emergency Department Summary 09/27/24 MR#: [id number] Acct: [id number] Name: SARAH MCGUIRE Rep #:[id number] : 1945 78 From: Hayden Sadler DO [...] her surgery and from the ride from [facility] to [place] and December 2022 she notedthat she has had some numbness and tingling periodically in her left arm but today this felt different therefore her daughter brought her here for further evaluation management. She states that she was sitting eating breakfast when this occurred. Patient states that she is anxious about her symptoms. She states that she is on Eliquis. [facility] Medical History Mitral valve stenosis, non-rheumatic [...] processes. Did discuss his case with on-call greens cutter Dr. Calderon who states that she canfollow-up [...] 78.7 H Lymph % (Auto) 10.8 L [place] % (Auto) 8.3 Eos % (Auto) 1.1 [...] No acute abnormality is seen. Reading Location: [place] [address] Discharge Plan Triage Chief Complaint: Chest Pain [...] symptoms or any other concerns. Print Language: [place] Sudanese Disposition Disposition: Home, Self Care What to do if you have Problems For any increased pain, shortness of breath, bleeding, nausea or vomiting, chestpain, or any unexpected problems, contact your Primary Care Provider. Call [facility] ([phone]) or report to the closest Emergency Room. Call 911 if necessary. 09/27/24 1330 <Electronically signed by Hayden Sadler DO> Cosigner Signature (if applicable): CC: Dr. Monika Venegas MD ~ Signed [facility] Work Phone: Evaluation noteNo assessment information available [facility] Work Phone: Evaluation note* Diagnosis Onset Date Resolution Status Scalp lesion chronic Scalp lesion chronic [facility] Work Phone: Evaluation note* Diagnosis Skull mass- Primary Disorder of bone and cartilage, unspecified documented in this encounter [facility]* Diagnosis Preop exam for internal medicine Other specified pre-operative examination Skull mass Disorder of bone and cartilage, unspecified Essential hypertension Unspecified essential hypertension Hyperlipidemia, unspecified hyperlipidemia type Skull lesion Disorder of bone and cartilage, unspecified documented [facility] Diagnosis Preop exam [...] and cartilage, unspecified [facility]* Diagnosis Skull mass Disorder of bone and cartilage, unspecified Skull lesion Disorder of bone and cartilage, unspecified documented in this [facility]* Diagnosis Onset Date Resolution Status Scalp lesion chronic Scalp lesion chronic Acute blood loss anemia acut e C. difficile enteritis acute Cerebrovascular disease acut e Excessive cerumen in both ear canals acute H/O craniotomy acute Hyponatremia acute Ischemic cerebrovascular accident (CVA) acute Mitral stenosis acute Physical debility acute Pulmonary hypertension acute Thrush acute Scalp lesion chronic [facility] Work Phone: Evaluation note* Diagnosis Neuroendocrine cancer Other malignant neoplasm without specification of site Cancer of cerebral meninges Malignant neoplasm of cerebral meninges documented [facility] Diagnosis Neuroendocrine cancer- Primary Other malignant neoplasm without specification of site documented [facility]* Diagnosis Onset Date Resolution Status [...] stenosis, non-rheumatic acute Paroxysmal atrial fibrillation acute [facility] Work Phone: Evaluation note* Diagnosis Cancer of cerebral meninges- Primary Malignant neoplasm of cerebral meninges Neuroendocrine cancer Other malignant neoplasm without specification of site documented [facility] Diagnosis Neuroendocrine cancer- Primary Other malignant neoplasm without specification of site documented [facility]* Diagnosis Cancer of cerebral meninges- Primary Malignant neoplasm of cerebral meninges documented [facility] Diagnosis Cancer of cerebral meninges- Primary Malignant neoplasm of cerebral meninges [facility]* Diagnosis Cancer of cerebral meninges- Primary Malignant neoplasm of cerebral meninges documented [facility]* Diagnosis Cancer of cerebral meninges- Primary Malignant neoplasm of cerebral meninges documented [facility] Diagnosis Onset Date Resolution Status Carotid artery bruit acute Ischemic cerebrovascular accident (CVA) acute terminal make up operator current use of amiodarone acute Mitral valve stenosis, non-rheumatic acute Paroxysmal atrial fibrillation acute [facility] Work Phone: Evaluation note* Diagnosis Cancer of cerebral meninges Malignant neoplasm of cerebral meninges documented [facility] Diagnosis Cancer of cerebral meninges- Primary Malignant neoplasm of cerebral meninges Neuroendocrine cancer Other malignant neoplasm without specification of site documented [facility] Diagnosis Cancer of cerebral meninges Malignant neoplasm of cerebral meninges Neuroendocrine cancer Other malignant neoplasm without specification of site documented [facility] Diagnosis Cancer of cerebral meninges Malignant neoplasm of cerebral meninges Neuroendocrine cancer Other malignant neoplasm without specification of site documented [facility]* Diagnosis Cancer of cerebral meninges- Primary Malignant neoplasm of cerebral meninges documented [facility] Diagnosis Cancer of cerebral meninges Malignant neoplasm of cerebral meninges documented [facility] Diagnosis Cancer of cerebral meninges- Primary Malignant neoplasm of cerebral meninges Skin change Other symptoms involving skin and integumentary tissues Alopecia Alopecia, unspecified S/P radiation therapy Convalescence following radiotherapy documented in this [facility]* Diagnosis Epidural hematoma- Primary Nontraumatic extradural hemorrhage Seizure Other convulsions Paroxysmal atrial fibrillation Atrial fibrillation Murmur Undiagnosed cardiac murmurs documented [facility] Diagnosis Epidural hematoma- Primary Nontraumatic extradural hemorrhage Seizure Other convulsions Paroxysmal atrial fibrillation Atrial fibrillation Murmur Undiagnosed cardiac murmurs documented [facility] [facility] Additional Instructions Follow-up with your primary care physician at your scheduled appointment tomorrow. Return with worsening symptoms or any other concerns.[facility] Work Phone: Reason for referral (narrative)* Consultation (Urgent) - New Request Specialty Diagnoses / Procedures Referred By Martha maciel Referred To Contact Oncology Diagnoses Skull mass Shaye Weston, CEMENTING BULK MATERIAL OPERATOR-INTERNET NETWORK SPECIALIST [address] [place] [address] Referral ID Status Reason Start Date Expiration Date V isits Requested Visits Authorized [id number] New Request 09/30/2022 10/25/2023 1 1 * MRI/CAT Scan (Emergency) - New Request Specialty Diagnoses / Procedures Referred By Contac t Referred To Contact Diagnoses Skull mass Procedures CT ABDOMEN/PELVIS WITH CONTRAST CHG CT SCAN,ABDOMENT AND PELVIS,W CONTRAST Shaye Weston APRN-AGNIESZKA [address] [place] [address] Referral ID Status Reason Start Date Expiration Date V isits Requested Visits Authorized [id number] New Request 09/30/2022 10/25/2023 1 1 * MRI/CAT Scan (Emergency) - New Request Specialty Diagnoses / Procedures Referred By Contac t Referred To Contact Diagnoses Skull mass Procedures CT CHEST WITH CONTRAST CHG DIAGNOSTIC COMPUTED TOMOGRAPHY THORAX W/CONTRAST Shaye Weston APRN-INTERNET NETWORK SPECIALIST [address] [place] [address] Referral ID Status Reason Start Date Expiration Date V isits Requested Visits Authorized [id number] New Request 09/30/2022 10/25/2023 1 1 [facility]arrative[facility]No reason for referral information availableWRegency [facility] Work Phone: Reason for visit Narrative* Auth/Cert Specialty Diagnoses / Procedures Referred By Contac t Referred To Contact Diagnoses Epidural hematoma Subdural Hematoma Jl Nazario MB [facility] [address] [place] [address] Phone: tel: fax: [facility] [address] [place] [address] Referral ID Status Reason Start Date Expiration Date Visits Re quested Visits Authorized [id number] 1 1 [facility] Family History Relationship Condition Age at Onset Recorded Date/T emir father Cerebrovascular accident (CVA) Unknown Cardiac disease Unknown mother Diabetes mellitus Unknown Advance Directives Advance Directive Response Recorded Date/ Time Living Will No July 31, 022 8:17pm Power of Software Quality Test Engineer No July 31, 2021 8:17pm Advance Directive Response Recorded Date/ Time Living Will No July 31, 022 7:17pm Power of Software Quality Test Engineer No July 31, 2021 7:17pm Advance Directive Response Recorded Date/ Time Name of Medical Power of Software Quality Test Engineer herbie Rapp December 10, 2022 11:50am Living Will Yes December 10, 2022 1 1:50am Power of Software Quality Test Engineer Yes December 10, 2022 11:50am Latest Code [...] Date/ Time Name of Medical Power of Software Quality Test Engineer herbie Rapp December 10, 2022 11:50am Name of Medical Power of Software Quality Test Engineer Reggie boudreaux December 23, 2022 6:27pm Living Will Yes December 23, 2022 6:27pm Power of Software Quality Test Engineer Yes December 23 6:27pm Advance Directive Response Recorded Date/ Time Living Will Yes December 23, 2022 5:27pm Power of Software Quality Test Engineer Yes December 23 5:27pm Date Activated Date [...] Do you have a Healthcare Power of Software Quality Test Engineer? Yes September 27, 2024 9:32am Name of Medical Power of Software Quality Test Engineer Alexsandra September 27, 2024 9:32am Date Activated [...] Do you have a Healthcare Power of Software Quality Test Engineer? Yes September 27, 2024 9:32am Name of Medical Power of Software Quality Test Engineer Alexsandra September 27, 2024 9:32am Do you have a Healthcare Power of Software Quality Test Engineer? No November 07, 2024 11:15am Advance Directive Response Recorded Date/ Time Do you have a Healthcare Power of Software Quality Test Engineer? Yes September 27, 2024 9:32am Name of Medical Power of Software Quality Test Engineer Alexsandra September 27, 2024 9:32am Do you have a Healthcare Power of Software Quality Test Engineer? No November 07, 2024 11:15am Do you have a Healthcare Power of Software Quality Test Engineer? Yes November 13, 2024 10:32am Name of Medical Power of Software Quality Test Engineer Alexsandra Grullon November 13, 2024 10:32am Advance Directive Response Recorded Date/ Time Do you have a Healthcare Power of Software Quality Test Engineer? Yes December 03, 2024 5:33pm Do you have a Healthcare Power of Software Quality Test Engineer? Yes September 27, 2024 9:32am Name of Medical Power of Software Quality Test Engineer Alexsandra September 27, 2024 9:32am Do you have a Healthcare Power of Software Quality Test Engineer? No November 07, 2024 11:15am Do you have a Healthcare Power of Software Quality Test Engineer? Yes November 13, 2024 10:32am Name of Medical Power of Software Quality Test Engineer Alexsandra Grullon November 13, 2024 10:32am Chief [...] RVR AFIB WITH RVR STROKE STROKE S/P [facility] 12/24/22 Reason for Visit Acute blood [...] Carotid artery bruit Ischemic cerebrovascular accident (CVA) terminal make up operator current use of amiodarone Mitral valve stenosis, [...] Intracranial epidural hematoma November 12, 2024 6:16pm terminal make up operator current use of amiodarone November 12, 2024 [...] Intracranial epidural hematoma November 12, 2024 6:16pm terminal make up operator current use of amiodarone November 12, 2024 [...] CELLS Qian Randle MD [address] [facility] [address] [place] [address] Referral ID Status Reason Start Date Expiration Date V isits Requested Visits Authorized [id number] New Request 10/08/2022 11/02/2023 1 1 Specialty Diagnoses / Procedures Referred By Contac t Referred To Contact Diagnoses Skull mass Procedures MRI STEALTH BRAIN [place] MRI BRAIN COMBO Shaye Weston, CEMENTING BULK MATERIAL OPERATOR-INTERNET NETWORK SPECIALIST [address] [place] [address] Referral ID Status Reason Start Date Expiration Date V isits Requested Visits Authorized [id number] New Request 10/08/2022 11/02/2023 1 1 Specialty Diagnoses / Procedures Referred By Contac t Referred To Contact Diagnoses Neuroendocrine cancer Cancer of cerebral meninges Procedures MRI BRAIN WITH PERFUSION [place] MRI BRAIN Andrew Sher MD [address] [place] [address] Referral ID Status Reason Start Date Expiration Date V isits Requested Visits Authorized [id number] New Request 01/06/2023 01/31/2024 1 1 Specialty Diagnoses / Procedures Referred By Contac t Referred To Contact Diagnoses Neuroendocrine cancer Cancer of cerebral meninges Procedures NUC PET NEUROENDOCRINE CHG NUC THERAPY HYPERTHYROID SUBSEQUENT Andrew Bueno MD [address] [place] [address] Referral ID Status Reason Start Date Expiration Date V isits Requested Visits Authorized [id number] New Request 01/06/2023 01/31/2024 1 1 Specialty Diagnoses / Procedures Referred By Contac t Referred To Contact Diagnoses Cancer of cerebral meninges Procedures MRI BRAIN WITH PERFUSION [place] MRI BRAIN Andrew Sher MD [address] [facility] [place] [address] Referral ID Status Reason Start Date Expiration Date V isits Requested Visits Authorized [id number] New Request 03/15/2023 04/08/2024 1 1 Specialty Diagnoses / Procedures Referred By Contac t Referred To Contact Diagnoses Cancer of cerebral meninges Procedures MRI BRAIN WITH PERFUSION [place] MRI BRAIN COMBO Salts, Kristine Tahir, CEMENTING BULK MATERIAL OPERATOR-INTERNET NETWORK SPECIALIST [address] [place] [address] Referral ID Status Reason Start Date Expiration Date V isits Requested Visits Authorized [id number] New Request 05/19/2023 06/12/2024 1 1 Referral ID Status Reason Start Date Expiration Date V isits Requested Visits Authorized [id number] New Request 08/23/2023 09/16/2024 1 1 Specialty Diagnoses / Procedures Referred By Contac t Referred To Contact Diagnoses Cancer of cerebral meninges Neuroendocrine cancer Procedures NUC PET NEUROENDOCRINE CHG PET IMAGING CT ATTENUATION SKULL BASE MID-THIGH Andrew Bueno MD [address] [place] [address] Referral ID Status Reason Start Date Expiration Date V isits Requested Visits Authorized [id number] New Request 11/29/2023 12/23/2024 1 1 Specialty Diagnoses / Procedures Referred By Contac t Referred To Contact Diagnoses Cancer of cerebral meninges Neuroendocrine cancer Procedures MRI BRAIN WITH PERFUSION CHG MRI BRAIN BRAIN STEM W/O W/CONTRAST MATERIAL Andrew Bueno MD [address] [place] [address] Referral ID Status Reason Start Date Expiration Date V isits Requested Visits Authorized [id number] New Request 11/29/2023 12/23/2024 1 1 Specialty Diagnoses / Procedures Referred By Contac t Referred To Contact Diagnoses Cancer of cerebral meninges Procedures MRI BRAIN WITH PERFUSION CHG MRI BRAIN BRAIN STEM W/O W/CONTRAST MATERIAL SaltsBabaka Tahir, CEMENTING BULK MATERIAL OPERATOR-INTERNET NETWORK SPECIALIST [address] [place] [address] Referral ID Status Reason Start Date Expiration Date V isits Requested Visits Authorized [id number] New Request 03/14/2024 04/08/2025 1 1 Summary [...] ESQUIVEL Attending Provider, Referring Provide r Active Precision Honer Relationship Specialty Start Date End Date Monika Venegas MD [address] [place] [address] PCP - General Family Medicine 09/28/22 Precision Honer Relationship Specialty Start Date End Date Monika Venegas MD [address] [place] [address] PCP - General Family Medicine 09/28/22 Precision Honer Relationship Specialty Start Date End Date Monika Venegas MD [address] [facility] [place] [place] [phone] PCP - General Family Medicine 09/28/22 Precision Honer Relationship Specialty Start Date End Date Monika Venegas MD [address] [place] [address] PCP - General Family Medicine 09/28/22 Precision Honer Relationship Specialty Start Date End Date Monika Venegas MD [address] [place] [address] PCP - General Family Medicine 09/28/22 [...] Pr ovider, Attending Provider, Referring Provider Active Precision Honer Relationship Specialty Start Date End Date Monika Venegas MD [address] [place] [address] PCP - General Family Medicine 09/28/22 Precision Honer Relationship Specialty Start Date End Date Monika Venegas MD [address] [place] [address] PCP - General Family Medicine 09/28/22 Precision Honer Relationship Specialty Start Date End Date Monika Venegas MD [address] [place] [address] PCP - General Family Medicine [...] Rivera MD Other Provider Active Jagdish Moncada VP DIRECTOR OF FINANCE, VP DIRECTOR OF FINANCE-C Other Provider Active Kourtney Beasley VP DIRECTOR OF FINANCE, VP DIRECTOR OF FINANCE-C Other Provider Active Lolly Alejandra PA, PA [...] Rivera MD Other Provider Active Jagdish Moncada VP DIRECTOR OF FINANCE, VP DIRECTOR OF FINANCE-C Other Provider Active Kourtney Beasley VP DIRECTOR OF FINANCE, VP DIRECTOR OF FINANCE-C Other Provider Active Lolly Alejandra PA, PA [...] Rivera MD Other Provider Active Jagdish Moncada VP DIRECTOR OF FINANCE, VP DIRECTOR OF FINANCE-C Other Provider Active Kourtney Beasley VP DIRECTOR OF FINANCE, VP DIRECTOR OF FINANCE-C Other Provider Active Lolly Alejandra PA, PA Other Provider Active Dr. Alix Hudson DO Attending Provider Active Precision Honer Relationship Specialty Start Date End Date Monika [place] [address] PCP - General Family Medicine 09/28/22 Precision Honer Relationship Specialty Start Date End Date Monika Venegas MD [address] [place] [address] PCP - General Family Medicine 09/28/22 Precision Honer Relationship Specialty Start Date End Date Monika Venegas MD [address] [place] [address] PCP - General Family Medicine 09/28/22 Precision Honer Relationship Specialty Start Date End Date Monika Venegas MD [address] [place] [address] PCP - General Family Medicine 09/28/22 Precision Honer Relationship Specialty Start Date End Date Monika Venegas MD [address] [place] [address] PCP - General Family Medicine 09/28/22 Precision Honer Relationship Specialty Start Date End Date Monika Venegas MD [address] [place] [address] PCP - General Family Medicine 09/28/22 Precision Honer Relationship Specialty Start Date End Date Monika Venegas MD [address] [place] [address] PCP - General Family Medicine 09/28/22 Precision Honer Relationship Specialty Start Date End Date Monika Venegas MD [address] [place] [address] PCP - General Family Medicine 09/28/22 Precision Honer Relationship Specialty Start Date End Date Monika Venegas MD [address] [place] [address] PCP - General Family Medicine 09/28/22 Team Status: Inactive Member Role Status Dates Dr. Monika Venegas MD Primary Care Provider Active Lolly Alejandra PA, PA Attending Provider, Referr ing Provider Active Team Status: Active Member Role Status Dates Dr. Monika Venegas MD Primary Care Prov ider, Attending Provider, Referring Provider Active Precision Honer Relationship Specialty Start Date End Date Monika Venegas MD [address] [place] [address] PCP - General Family Medicine 09/28/22 Precision Honer Relationship Specialty Start Date End Date Monika Venegas MD [address] [place] [address] PCP - General Family Medicine 09/28/22 Precision Honer Relationship Specialty Start Date End Date Monika Venegas MD [address] [place] [address] PCP - General Family Medicine 09/28/22 Precision Honer Relationship Specialty Start Date End Date Monika Venegas MD [address] [place] [address] PCP - General Family Medicine 09/28/22 Team [...] September 27, 2024 End: September 27, 2024 Precision Honer Relationship Specialty Start Date End Date Monika [...] henrietta Start: November 26, 2024 Dr. Jo-Ann rAias DO Referring Provider Act henrietta Start: November [...] Provider Active Start: November 27, 2024 Dr. Argnetina Schmitz MD Other Provider Active Start: November [...] of skull Monika Venegas MD [address] [place] [address] [facility] [address] [place] [address] Referral ID Status Reason Start Date Expiration Date V isits Requested Visits Authorized [id number] Pending Review 09/27/2022 10/22/2023 1 1 Reason Comments Pre-operative Consultation Specialty Diagnoses / Procedures Referred By Contac t Referred To Contact PreOp Diagnoses Skull mass Shaye Weston, CEMENTING BULK MATERIAL OPERATOR-INTERNET NETWORK SPECIALIST [address] [place] [address] Referral ID Status Reason Start Date Expiration Date V isits Requested Visits Authorized [id number] New Request 10/07/2022 11/01/2023 1 1 Specialty Diagnoses / Procedures Referred By Contac t Referred To Contact Diagnoses Skull mass Procedures MRI STEALTH BRAIN [place] MRI BRAIN COMBO Shaye Weston, CEMENTING BULK MATERIAL OPERATOR-INTERNET NETWORK SPECIALIST [address] [place] [address] Referral ID Status Reason Start Date Expiration Date V isits Requested Visits Authorized [id number] New Request 10/08/2022 11/02/2023 1 1 Specialty Diagnoses / Procedures Referred By Contac t Referred To Contact Diagnoses Neuroendocrine cancer Cancer of cerebral meninges Procedures MRI BRAIN WITH PERFUSION [place] MRI BRAIN Andrew Sher MD [address] [place] [address] Referral ID Status Reason Start Date Expiration Date V isits Requested Visits Authorized [id number] New Request 01/06/2023 01/31/2024 1 1 Specialty Diagnoses / Procedures Referred By Contac t Referred To Contact Diagnoses Neuroendocrine cancer Cancer of cerebral meninges Procedures NUC PET NEUROENDOCRINE CHG NUC THERAPY HYPERTHYROID SUBSEQUENT Andrew Bueno MD [address] [place] [address] Referral ID Status Reason Start Date Expiration Date V isits Requested Visits Authorized [id number] New Request 01/06/2023 01/31/2024 1 1 Reason Comments Continuity Of Care Specialty Diagnoses / Procedures Referred By Contac t Referred To Contact Diagnoses Neuroendocrine cancer Cancer of cerebral meninges Procedures RAD ONC SIMULATION Andrew Bueno MD [address] [place] [address] Referral ID Status Reason Start Date Expiration Date Visits Re quested Visits Authorized [id number] Closed 01/06/2023 01/31/2024 1 1 Reason Comments Consult Reason Comments On Treatment Visit Reason Comments On Treatment Visit Reason Comments Follow-up Specialty Diagnoses / Procedures Referred By Contac t Referred To Contact Diagnoses Cancer of cerebral meninges Procedures MRI BRAIN WITH PERFUSION [place] MRI BRAIN COMBO Kristine Blue, CEMENTING BULK MATERIAL OPERATOR-INTERNET NETWORK SPECIALIST [address] Floor [facility] [address] [place] [address] Referral ID Status Reason Start Date Expiration Date V isits Requested Visits Authorized [id number] New Request 05/19/2023 06/12/2024 1 1 Specialty Diagnoses / Procedures Referred By Contac t Referred To Contact Diagnoses Cancer of cerebral meninges Procedures MRI BRAIN WITH PERFUSION [place] MRI BRAIN Andrew Sher MD [address] [place] [address] Referral ID Status Reason Start Date Expiration Date V isits Requested Visits Authorized [id number] New Request 08/23/2023 09/16/2024 1 1 Reason Comments Follow-up Specialty Diagnoses / Procedures Referred By Contac t Referred To Contact Diagnoses Cancer of cerebral meninges Neuroendocrine cancer Procedures NUC PET NEUROENDOCRINE CHG PET IMAGING CT ATTENUATION SKULL BASE MID-THIGH Andrew Bueno MD [address] [place] [address] Referral ID Status Reason Start Date Expiration Date V isits Requested Visits Authorized [id number] New Request 11/29/2023 12/23/2024 1 1 Specialty Diagnoses / Procedures Referred By Contac t Referred To Contact Diagnoses Cancer of cerebral meninges Neuroendocrine cancer Procedures MRI BRAIN WITH PERFUSION CHG MRI BRAIN BRAIN STEM W/O W/CONTRAST MATERIAL Andrew Bueno MD [address] [place] [address] Referral ID Status Reason Start Date Expiration Date V isits Requested Visits Authorized [id number] New Request 11/29/2023 12/23/2024 1 1 Specialty Diagnoses / Procedures Referred By Contac t Referred To Contact Diagnoses Cancer of cerebral meninges Procedures MRI BRAIN WITH PERFUSION CHG MRI BRAIN BRAIN STEM W/O W/CONTRAST MATERIAL Kristine Blue APRN-INTERNET NETWORK SPECIALIST [address] [facility] [address] [place] [address] Referral ID Status Reason Start Date Expiration Date V isits Requested Visits Authorized [id number] New Request 03/14/2024 04/08/2025 1 1 Scheduled [...] Provider: Greta Yoder RN)[phone] (Stopped - Provider: hSanna Benavides RN)1034 (Stopped - Provider: Shanna Benavides [...] section and content) DATE CREATED AUTHOR 11/23/2024 [facility] DATE CREATED AUTHOR AUTHOR'S ORGANIZ ATION 11/30/[address] [facility] FOR RECORDS PERTAINING TO PATIENTS WHO [...] BE BASED ON THE PRIMARY CLINICAL RECORDS. [employer] provides no warranty or guarantee of the accuracy or completeness of information in this document.
[2024-12-04 02:51] LABS: FOLATES,SERUM (FOLIC ACID) 17.50 ng/mL (4.60-34.80)
[2024-12-04 03:42] LABS: Magnesium 1.9 mg/dL (1.5-2.2)
[2024-12-04 04:19] LABS: Vitamin B12 2668 pg/mL (180-914)
[2024-12-04 06:49] LABS: Hematocrit 26.0 % (37-47); Hemoglobin 9.4 g/dL (12.0-15.0); Immature Granulocytes Count 0.050 X10^3/uL (0.0-0.0); Mean Corp Hgb Conc 36.2 g/dL (32-36); Mean Corpuscular Volume 91.9 fL (81-99); Mean Platelet Vol. 9.8 fl (6.2-12.0); NRBC Flagged by Analyzer 0 % (0-5); POSITIVE DIFFERENTIAL YES; Platelet Count 177 K/mm3 (150-450); RBC Distribution Width CV 12.5 % (11.6-14.6); RBC Distribution Width SD 42.1 fl (35.1-43.9); Red Blood Count 2.83 M/mm3 (4.2-5.4); White Blood Count 7.8 K/mm3 (4.4-11.0)
[2024-12-04 07:20] LABS: AST(SGOT) 99 U/L (<=31); Alanine Aminotransfer ALT/SGPT 239 U/L (<=34); Albumin, Serum 3.2 g/dL (3.4-4.8); Alkaline Phosphatase 90 U/L (35-104); Anion Gap 9 (5-15); BUN 13 mg/dL (4-19); BUN/Creat Ratio 20.2 RATIO (10-20); Calcium,Total 8.2 mg/dL (7.6-11.0); Carbon Dioxide 21.1 mmol/L (21.0-32.0); Chloride 100 mmol/L (98-108); Cholesterol 124 mg/dL (<=200); Estimated Creatinine Clearance 39.62 ml/min (50-250); Globulin 1.8 g/dL (2.2-4.2); Glucose 85 mg/dL (70-99); Low Density Lipoprotein Calc. 58 mg/dL; Potassium 3.7 mmol/L (3.3-5.1); Triglycerides 47 mg/dL; Very Low Density Lipoprotein 9 mg/dL (5-40); cholesterol:hdl ratio screen 2.19
--- NOTE | 2024-12-04 08:17 | PCM.PN.HOSP ---
Reason for Visit Reason for Visit: Weakness/falls Subjective Subjective Patient states that she was discharged from rehab and had difficulty pretty much right away. She states she fell actually trying to get to the house. It looks like she had a urine culture here done on 11/25/2024 which grew Pseudomonas but colony counts were not significant. Repeat urine culture has been done however patient does not have a white count. She did not have any white cells in her urine. Objective Data Objective Data Vital Signs: Vital Signs Temp Pulse Resp BP Pulse Ox O2 Del Method 97.8 F 73 16 166/53 H 93 Room Air 12/04/24 05:30 12/04/24 07:58 12/04/24 05:30 12/04/24 05:38 12/04/24 07:45 12/04/24 07:45 Oxygen Delivery Method Room Air Weight: 48.5 kg Body Mass Index (BMI) 24.0 Intake & Output: Intake and Output for Last 24 Hours 12/02/24 12/03/24 12/04/24 23:59 23:59 23:59 Intake Total 1050 / 1050 Output Total 250 / 250 Balance 1050 / 1050 -250 / -250 Lab / Micro Data 12/04/24 06:41 12/04/24 06:41 Labs: Laboratory Results - last 24 hr 12/03/24 18:53: WBC 7.3, RBC 3.04 L, Hgb 10.0 L, Hct 28.2 L, MCV 92.8, MCH 32.9 H, MCHC 35.5, RDW Std Deviation 43.1, RDW Coeff of Marga 12.6, Plt Count 197, MPV 10.2, Immature Gran % (Auto) 0.700, Neut % (Auto) 80.3 H, Lymph % (Auto) 9.0 L, [place] % (Auto) 9.6, Eos % (Auto) 0.1, Baso % (Auto) 0.3, Absolute Neuts (auto) 5.9, Absolute Lymphs (auto) 0.66 L, Nucleated RBC % 0, Sodium 133, Potassium 3.7, Chloride 100, Carbon Dioxide 22.8, Anion Gap 10, BUN 15, Creatinine 0.67 L, Estim Creat Clear Calc 39.62 L, Est GFR (MDRD) Non-Af 88, BUN/Creatinine Ratio 22.8 H, Glucose 106 H, Hemoglobin A1c 5.1, Calcium 8.8, Magnesium 1.9, Total Bilirubin 0.65, AST 104 H, ALT 282 H, Alkaline Phosphatase 104, Total Protein 5.8 L, Albumin 3.7, Globulin 2.1 L, Albumin/Globulin Ratio 1.8, Lipase 68, Vitamin B12 2668 H, Serum Folate 17.50, TSH 1.500 12/03/24 20:10: Urine Color Straw, Urine Clarity Clear, Urine pH 7.0, Ur Specific Randolph 1.010, Urine Protein 15 H, Urine Glucose (UA) Normal, Urine Ketones 5 H, Urine Occult Blood Negative, Urine Nitrite Positive H, Urine Bilirubin Negative, Urine Urobilinogen Normal, Ur Leukocyte Esterase Negative, Urine RBC 0-5 SEEN, Urine WBC 0-5 SEEN, Ur Squamous Epith Cells 0 SEEN, Urine Bacteria 3+, Urine Mucus 0 SEEN 12/04/24 06:41: WBC 7.8, RBC 2.83 L, Hgb 9.4 L, Hct 26.0 L, MCV 91.9, MCH 33.2 H, MCHC 36.2 H, RDW Std Deviation 42.1, RDW Coeff of Marga 12.5, Plt Count 177, MPV 9.8, Immature Gran % (Auto) 0.600, Neut % (Auto) 84.4 H, Lymph % (Auto) 6.8 L, [place] % (Auto) 7.5, Eos % (Auto) 0.4, Baso % (Auto) 0.3, Absolute Neuts (auto) 6.6, Absolute Lymphs (auto) 0.53 L, Nucleated RBC % 0, Sodium 130 L, Potassium 3.7, Chloride 100, Carbon Dioxide 21.1, Anion Gap 9, BUN 13, Creatinine 0.63 L, Estim Creat Clear Calc 39.62 L, Est GFR (MDRD) Non-Af 89, BUN/Creatinine Ratio 20.2 H, Glucose 85, Calcium 8.2, Phosphorus 3.1, Total Bilirubin 0.57, AST 99 H, ALT 239 H, Alkaline Phosphatase 90, Total Protein 5.0 L, Albumin 3.2 L, Globulin 1.8 L, Albumin/Globulin Ratio 1.8, Triglycerides 47, Cholesterol 124, LDL Cholesterol, Calc 58, VLDL Cholesterol 9, HDL Cholesterol 57, Cholesterol/HDL Ratio 2.19 Physical Exam Const alert, oriented x3, no apparent distress, average body habitus and well nourished; Negative for healthy appearing Constitutional Narrative: Elderly, white female, lying in bed, appears somewhat frail but nontoxic HEENT head/scalp atraumatic and moist oral mucous membranes HEENT Narrative: Mallampati 3, no thrush, dentures in place Head and Scalp: normocephalic Resp normal respiratory effort, no retractions, no use of accessory muscles and clear to auscultation bilaterally Auscultation: Negative for rales, rhonchi or wheezes Cardio regular rate, regular rhythm, S1 normal heart sound, S2 normal heart sound, no murmurs, no rub, no gallops and no clicks GI normal to inspection, nondistended, normoactive bowel sounds, soft to palpation and non-tender GI Narrative: No suprapubic tenderness present Extremity no clubbing, cyanosis or edema Extremity Narrative: 2+ pedal and radial pulses Neuro oriented x3, moves all extremities and no focal motor deficits Neuro Narrative: Significant debility and generalized weakness noted, voice is somewhat tremulous Speech: Negative for speech normal Psych Psych Narrative: Affect is slightly flat but patient makes good eye contact, answers questions and interacts appropriately Assessment & Plan Assessment/Plan (1) Ambulatory dysfunction: (2) Abnormal finding on urinalysis: (3) Falls: PLAN: Plan Generalized weakness/falls/ambulatory dysfunction - Recent admission to rehab from November 13 through November 27 - Patient fell actually getting into the house right after discharge - PT/OT consultation - Will likely need placement - Case management/social work involved Abnormal UA - Patient does have nitrites and bacteria but no white cells - She is not complaining of dysuria - Culture has been sent - Previous culture from 11/25/2024 shows Pseudomonas with little level CFU per high powered field not consistent with infection - Repeat cultures sent but will hold off on antibiotics at this time since she does not seem to be symptomatic - Follow cultures and if colony counts are markedly higher than they were previously or greater than threshold of 100,000 CFU per hpf we will start antibiotics likely with ciprofloxacin for 3 days Recent subdural hematoma - Transferred to [facility] agree with [facility] for apixaban reversal - MRI at [facility] was unremarkable for new stroke - EEG was abnormal therefore started on Keppra 1 g twice daily and neurosurgery consulted for extradural fluid collection and recommended holding anticoagulation for least 2 weeks suspecting subdural hematoma from a fall she had previously - Apixaban has been initiated and will continue at this time - Monitor clinically Paroxysmal atrial fibrillation - Continue home amiodarone - Continue home apixaban SIADH - Continue sodium - Fluid restriction of 1250 cc - Patient follows up outpatient with Dr. Schulte next-sodium is slightly low compared to admission we will continue to monitor with repeat lab in a.m. Essential hypertension/hyperlipidemia - Continue hydralazine - Continue atorvastatin Seizure disorder - Continue Keppra Chronic stage II diastolic dysfunction/chronic HFpEF - Patient is not on any chronic diuretics - Monitor clinically for signs of decompensation DVT prophylaxis - Continue apixaban CODE STATUS - Full code Disposition: - Patient is medically stable for discharge as of 12/04/2024 and accepting facility. Was declined by rehab Charges/Coding Visit Charges Inpatient E&M: 55719 Subs Hosp L2 NIHSS NIHSS Nursing Documentation NIHSS Nursing Documentation: NIH Stroke Scale Start: 12/03/24 17:36 Freq: Status: Discharge Protocol: Activity Type Activity Date Activity User E-sign Co-sign Detail Recorded Client Recorded Date Recorded By Document 12/03/24 17:36 DKM ... 12/03/24 17:37 DKM 12/03/24 17:36 NIH Stroke Scale [NIHSS] A score of 0 is normal or asymptomatic . Total possible score is 42. Inpatient: RN or Physician to activate a stroke alert for onset of new stroke symptoms or with NIHSS increase >/= 3 points. Following change in neurological status, NIHSS will be performed per physician order or more frequently PRN. -1a. Level of Consciousness 0 - Alert; keenly responsive -1b. LOC Questions 0 - Answers BOTH questions correctly -1c. LOC Commands 0 - Performs BOTH tasks correctly -2. Best Gaze 0 - Normal -3. Visual 0 - No visual loss -4. Facial Palsy 0 - Normal symmetrical movements -5a. Left Arm 0 - No drift; arm holds 90 ( or 45) degrees for full 10 seconds -5b. Right Arm 0 - No drift; arm holds 90 ( or 45) degrees for full 10 seconds -6a. Left Leg 0 - No drift; leg holds 30- degree position for full 5 seconds -6b. Right Leg 0 - No drift; leg holds 30- degree position for full 5 seconds -7. Limb Ataxia 0 - Absent -8. Sensory 0 - Normal; no sensory loss -9. Best Language 0 - No aphasia; normal -10. Dysarthria 0 - Normal -11. Extinction and Inattention 0 - No abnormality -Total 0 Query Text:A score of 0 is normal or asymptomatic. Total possible score is 42 . ED: Notify Physician for NIHSS increase by > / = 3 points. Inpatient: RN or Physician to activate a stroke alert for NIHSS increase of > / = 3 points.
[2024-12-04] MEDS: Ensure Plus High Protein 120 ML LIQUID PO (08:29)
[2024-12-04] MEDS: 0.9% Saline Lock 10 ML Syringe IV (08:31)
[2024-12-04] MEDS: APIXABAN 2.5 MG TABLET (WCH) PO ×2 (09:37→20:08)
[2024-12-04] MEDS: Cholecalciferol (Vit D3) 125 MCG CAPSULE (5,000 UNITS) PO (11:45)
[2024-12-04] MEDS: Zinc Sulfate 50 mg zinc (220 mg) ORAL capsule PO (11:45)
--- NOTE | 2024-12-04 13:57 | CASEMGMT ---
Social Work- SW met with pt to discuss discharge planning. SW introduced self and role. Pt reports that she isn't sure why her legs are so weak and legs are buckling. Pt reports that she needs to be stronger before returning home. Pt requests SW follow up with dtr. SW called pt dtr Alexsandra to discuss discharge planning. Alexsandra reports that preference would be return to ; SW completed referral. Pt referral declined. TCU unable to accept as well. A list of SNF providers including quality and resource use data and consistent with the patient?s preferred geographic region, medical needs, and insurance network were provided from the [employer] Guide and left in pt room. Pt dtr reports that she and pt will review this evening and leave three choices for SW. SW updated physician. SW remains available to follow. KEY Srivastava
--- NOTE | 2024-12-04 14:21 | CASEMGMT ---
Met with patient to complete BUNN form. BUNN form and its content were verbally explained and patient's questions were answered to the best of my ability.? Patient voiced understanding and signed BUNN form.? Patient provided a copy of signed BUNN form and original placed in patient's chart.? Patient had no further questions. Tricia Edge, Discharge Planning Asst
--- NOTE | 2024-12-04 14:26 | CASEMGMT ---
Addendum entered by Tricia Edge 12/04/24 14:33: Alexsandra returned call. BUNN reviewed with stated understanding and no questions. Tricia Edge DC Planning Asst. Original Note: BUNN Msg left for pts daughter, Alexsandra, at pts request. Overview of BUNN given with contact information. BUNN copy placed in pts room. Tricia Edge DC Planning Asst.
[2024-12-05] VITALS (13 sets, daily range): BP systolic 133–156; BP diastolic 38–63; PULSE 65–74; RESP 16–18; TEMP 36.6–37.2; O2SAT 96–98; BMI 23.9
[2024-12-05 06:03] LABS: Hematocrit 27.4 % (37-47); Hemoglobin 9.8 g/dL (12.0-15.0); Mean Corp Hgb Conc 35.8 g/dL (32-36); Mean Corpuscular Volume 92.3 fL (81-99); Mean Platelet Vol. 10.8 fl (6.2-12.0); Platelet Count 196 K/mm3 (150-450); RBC Distribution Width CV 12.4 % (11.6-14.6); RBC Distribution Width SD 41.6 fl (35.1-43.9); Red Blood Count 2.97 M/mm3 (4.2-5.4); White Blood Count 7.0 K/mm3 (4.4-11.0)
[2024-12-05 06:30] LABS: Anion Gap 11 (5-15); BUN 13 mg/dL (4-19); BUN/Creat Ratio 21.2 RATIO (10-20); Calcium,Total 8.5 mg/dL (7.6-11.0); Carbon Dioxide 21.8 mmol/L (21.0-32.0); Chloride 94 mmol/L (98-108); Estimated Creatinine Clearance 39.62 ml/min (50-250); Glucose 94 mg/dL (70-99); Potassium 3.8 mmol/L (3.3-5.1)
--- NOTE | 2024-12-05 08:34 | PN.HOSP_ITS ---
Reason for Visit Reason for Visit: Generalized weakness/falls Subjective Subjective Patient has no specific complaints other than being tired. She does states she did not sleep that well last night. I did explain her sodium has dropped and will probably have nephrology consult her after we give her some pulm apnea. Sodium this afternoon will be reassessed for stability. Patient states she is moving her bowels well and having no pain. Objective Data Objective Data Vital Signs: Vital Signs Temp Pulse Resp BP Pulse Ox O2 Del Method 98.1 F 70 18 148/42 H 97 Room Air 12/05/24 07:53 12/05/24 07:53 12/05/24 07:53 12/05/24 07:53 12/05/24 07:53 12/05/24 07:54 Oxygen Delivery Method Room Air Weight: 48.3 kg Body Mass Index (BMI) 23.9 Intake & Output: Intake and Output for Last 24 Hours 12/03/24 12/04/24 12/05/24 23:59 23:59 23:59 Intake Total 1050 / 1050 955.83 / 955.83 Output Total 500 / 900 900 / 900 Balance 1050 / 1050 455.83 / 55.83 -900 / -900 Lab / Micro Data 12/05/24 04:56 12/05/24 11:56 Labs: Laboratory Results - last 24 hr 12/05/24 04:56: WBC 7.0, RBC 2.97 L, Hgb 9.8 L, Hct 27.4 L, MCV 92.3, MCH 33.0 H , MCHC 35.8, RDW Std Deviation 41.6, RDW Coeff of Marga 12.4, Plt Count 196, MPV 10.8, Sodium 126 L, Potassium 3.8, Chloride 94 L, Carbon Dioxide 21.8, Anion Gap 11, BUN 13, Creatinine 0.60 L, Estim Creat Clear Calc 39.62 L, Est GFR (MDRD) Non-Af 90, BUN/Creatinine Ratio 21.2 H, Glucose 94, Calcium 8.5 Physical Exam Const alert, oriented x3, no apparent distress, average body habitus and well nourished; Negative for healthy appearing Constitutional Narrative: Elderly, white female, lying in bed, appears somewhat frail but nontoxic General Appearance: cooperative HEENT normocephalic, head/scalp atraumatic, hearing grossly normal bilaterally and moist oral mucous membranes Eyes PERRL, EOMs intact bilaterally and conjunctivae normal Neck no lymphadenopathy and supple Resp normal respiratory effort, no retractions, no use of accessory muscles and clear to auscultation bilaterally Auscultation: Negative for rales, rhonchi or wheezes Cardio regular rate, regular rhythm, S1 normal heart sound, S2 normal heart sound, no murmurs, no rub, no gallops and no clicks GI normal to inspection, nondistended, normoactive bowel sounds, soft to palpation, non-tender and non-distended GI Narrative: No suprapubic tenderness present Extremity normal to inspection, full ROM and no clubbing, cyanosis or edema Extremity Narrative: 2+ pedal and radial pulses Skin Skin Narrative: Patient has evidence of rash, abscess, wounds or jaundice. Neuro oriented x3, CN's II-XII intact bilaterally, moves all extremities and no focal motor deficits Neuro Narrative: Significant debility and generalized weakness noted, voice is somewhat tremulous Sensorium / Orientation: awake, alert, oriented to person, oriented to place and oriented to time Speech: Negative for speech normal Psych affect normal Psych Narrative: Affect is slightly flat but patient makes good eye contact, answers questions and interacts appropriately Assessment & Plan Assessment/Plan (1) Ambulatory dysfunction: (2) Abnormal finding on urinalysis: (3) Falls: PLAN: Plan Generalized weakness/falls/ambulatory dysfunction - Recent admission to rehab from November 13 through November 27 - Patient fell actually getting into the house right after discharge - PT/OT consultation - Will likely need placement - Case management/social work involved Abnormal UA - Patient does have nitrites and bacteria but no white cells - She is not complaining of dysuria - Culture has been sent - Previous culture from 11/25/2024 shows Pseudomonas with little level CFU per high powered field not consistent with infection - Repeat cultures sent but will hold off on antibiotics at this time since she does not seem to be symptomatic - Follow cultures and if colony counts are markedly higher than they were previously or greater than threshold of 100,000 CFU per hpf we will start antibiotics likely with ciprofloxacin for 3 days Recent subdural hematoma - Transferred to [facility] agree with [facility] for apixaban reversal - MRI at [facility] was unremarkable for new stroke - EEG was abnormal therefore started on Keppra 1 g twice daily and neurosurgery consulted for extradural fluid collection and recommended holding anticoagulation for least 2 weeks suspecting subdural hematoma from a fall she had previously - Apixaban has been initiated and will continue at this time - Monitor clinically Paroxysmal atrial fibrillation - Continue home amiodarone - Continue home apixaban SIADH - Continue sodium - Fluid restriction of 1250 cc - Patient follows up outpatient with Dr. Schulte next-sodium is slightly low compared to admission we will continue to monitor with repeat lab in a.m. Essential hypertension/hyperlipidemia - Continue hydralazine - Continue atorvastatin Seizure disorder - Continue Keppra Chronic stage II diastolic dysfunction/chronic HFpEF - Patient is not on any chronic diuretics - Monitor clinically for signs of decompensation DVT prophylaxis - Continue apixaban CODE STATUS - Full code Disposition: - Patient is medically stable for discharge as of 12/04/2024 and accepting facility. Was declined by rehab Charges/Coding Visit Charges Inpatient E&M: 54970 Subs Hosp L2 NIHSS NIHSS Nursing Documentation NIHSS Nursing Documentation: NIH Stroke Scale Start: 12/03/24 17:36 Freq: Status: Discharge Protocol: Activity Type Activity Date Activity User E-sign Co-sign Detail Recorded Client Recorded Date Recorded By Document 12/03/24 17:36 DKM ... 12/03/24 17:37 DKM 12/03/24 17:36 NIH Stroke Scale [NIHSS] A score of 0 is normal or asymptomatic . Total possible score is 42. Inpatient: RN or Physician to activate a stroke alert for onset of new stroke symptoms or with NIHSS increase >/= 3 points. Following change in neurological status, NIHSS will be performed per physician order or more frequently PRN. -1a. Level of Consciousness 0 - Alert; keenly responsive -1b. LOC Questions 0 - Answers BOTH questions correctly -1c. LOC Commands 0 - Performs BOTH tasks correctly -2. Best Gaze 0 - Normal -3. Visual 0 - No visual loss -4. Facial Palsy 0 - Normal symmetrical movements -5a. Left Arm 0 - No drift; arm holds 90 ( or 45) degrees for full 10 seconds -5b. Right Arm 0 - No drift; arm holds 90 ( or 45) degrees for full 10 seconds -6a. Left Leg 0 - No drift; leg holds 30- degree position for full 5 seconds -6b. Right Leg 0 - No drift; leg holds 30- degree position for full 5 seconds -7. Limb Ataxia 0 - Absent -8. Sensory 0 - Normal; no sensory loss -9. Best Language 0 - No aphasia; normal -10. Dysarthria 0 - Normal -11. Extinction and Inattention 0 - No abnormality -Total 0 Query Text:A score of 0 is normal or asymptomatic. Total possible score is 42 . ED: Notify Physician for NIHSS increase by > / = 3 points. Inpatient: RN or Physician to activate a stroke alert for NIHSS increase of > / = 3 points.
[2024-12-05] MEDS: TOLVAPTAN 15 MG TABLET PO (09:02)
[2024-12-05] MEDS: APIXABAN 2.5 MG TABLET (WCH) PO ×2 (09:46→21:04)
[2024-12-05] MEDS: Cholecalciferol (Vit D3) 125 MCG CAPSULE (5,000 UNITS) PO (09:47)
[2024-12-05] MEDS: Zinc Sulfate 50 mg zinc (220 mg) ORAL capsule PO (09:47)
--- NOTE | 2024-12-05 11:21 | CASEMGMT ---
Social Work Pt's dgts preferred SNF providers are 1. [facility] 2. [facility]. [place] [facility] physician assistant notifed and to send referrals. KEY Dobbs
--- NOTE | 2024-12-05 11:43 | CASEMGMT ---
Addendum entered by Tricia Edge 12/05/24 12:22: [facility] has accepted. SW updated. Tricia Edge DC Planning Asst. Original Note: Discharge Planning Referral sent to [facility]. Tricia Edge DC Planning Asst.
[2024-12-05 12:37] LABS: Anion Gap 10 (5-15); BUN 16 mg/dL (4-19); BUN/Creat Ratio 22.7 RATIO (10-20); Calcium,Total 8.8 mg/dL (7.6-11.0); Carbon Dioxide 23.2 mmol/L (21.0-32.0); Chloride 93 mmol/L (98-108); Estimated Creatinine Clearance 39.62 ml/min (50-250); Glucose 156 mg/dL (70-99); Potassium 4.0 mmol/L (3.3-5.1)
--- NOTE | 2024-12-05 15:23 | CASEMGMT ---
Social Work SW met with pt and informed that [facility] is able to accept pt however, per physician, pt is not ready for discharge today. Pt is agreeable to discharge to [facility]. Phone call to pt dgt Alexsandra and updated on the dc plan and Alexsandra is agreeable. Plan: [facility], when medically ready KEY Toscano
--- NOTE | 2024-12-05 15:34 | PCM.CONS.R ---
Assessment & Plan Assessment/Plan (1) Hyponatremia: PLAN: Recently admitted at rehab unit with hyponatremia. 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 Initially was placed on salt tablets, did not improve. Received a dose of tolvaptan which resulted in improvement. Unfortunately tolvaptan use as outpatient is very restrictive, expensive. Will have to use salt tablets at higher dose likely. HPI Consult Data Date of Consult: 12/05/24 HPI Narrative Reason for Consultation: hyponatremia HPI Narrative: FREDO MCGUIRE, is a 79 F who presents To the hospital with generalized weakness. She is well-known to us from recent admission at the rehab unit. Was recently admitted at [facility] with subdural fluid collection, subsequently was transferred to TCU. She was found to have hyponatremia. She was started on salt tablets which did not improve sodium much. She was given 1 dose of tolvaptan, sodium improved and she was discharged home. She had an appointment scheduled with me next week in office. Unfortunately came back with worsening weakness. She is currently alert, awake. Denies any breathing complaints. No urinary complaints. [facility] Medical History (Updated 12/05/24 @ 15:[address] Gagan Schulte MD) Ischemic cerebrovascular accident (CVA) Presbycusis History of rheumatic fever as a child Grade II diastolic dysfunction Intracranial epidural hematoma Cerebrovascular disease Mitral stenosis Pulmonary hypertension Stroke/cerebrovascular accident Scalp lesion Hemorrhoids High cholesterol HTN (hypertension) Home Medications ?Medication ?Instructions ?Recorded ?Last Taken ?Type multivitamin 1 tablet PO DAILY supplement 08/12/20 12/24/22 10:00 History cholecalciferol (vitamin D3) 125 125 mcg PO DAILY supplement 08/14/20 12/24/22 08:00 History mcg (5,000 unit) capsule cyanocobalamin (vitamin B-12) 500 1,000 mcg PO DAILY supplement 08/14/20 12/24/22 10:00 History mcg chewable tablet amiodarone 200 mg tablet 200 mg PO DAILY heart #90 TABLETS 12/12/23 11/12/24 08:30 Rx atorvastatin 10 mg tablet 10 mg PO QHS for cholesterol #90 12/12/23 11/11/24 21:08 Rx TABLETS apixaban 2.5 mg tablet 2.5 mg PO BID called to [facility] 08/13/24 09/27/24 Rx [facility]180 tabs acetaminophen 325 mg capsule 325 mg PO Q4H PRN pain 11/12/24 11/12/24 13:15 History hydralazine 50 mg tablet 50 mg PO TID bp #90 tabs 11/27/24 Unknown Rx levetiracetam 750 mg tablet 750 mg PO BID [facility] #60 tabs 11/27/24 Unknown Rx sodium chloride 1,000 mg soluble 1,000 mg PO TIDCM low sodium #90 11/27/24 Unknown Rx tablet tabs Allergy/AdvReac Type Severity Reaction Status Date / Time No Known Allergies Allergy Verified 12/03/24 15:46 Family History Father CVA (cerebral vascular accident) Heart disease Mother Diabetes Surgical History H/O craniotomy Status post hemorrhoidectomy (~08/19/20) S/P carpal tunnel release S/P bilateral breast reduction S/P hysterectomy Social History household members: children and other details: BRADY Upton lives with her. housing: house current occupational status: retired Smoking Status: Never smoker alcohol intake: never Physical Exam Narrative Alert awake oriented x 3 no obvious distress no pallor no icterus no JVD s1s2 no murmurs lungs clear abdomen soft no organomegaly no edema no cyanosis Lab / Micro Data 12/05/24 04:56 12/05/24 11:56 Labs: Laboratory Results - last 24 hr 12/05/24 04:56: WBC 7.0, RBC 2.97 L, Hgb 9.8 L, Hct 27.4 L, MCV 92.3, MCH 33.0 H, MCHC 35.8, RDW Std Deviation 41.6, RDW Coeff of Marga 12.4, Plt Count 196, MPV 10.8, Sodium 126 L, Potassium 3.8, Chloride 94 L, Carbon Dioxide 21.8, Anion Gap 11, BUN 13, Creatinine 0.60 L, Estim Creat Clear Calc 39.62 L, Est GFR (MDRD) Non-Af 90, BUN/Creatinine Ratio 21.2 H, Glucose 94, Calcium 8.5 12/05/24 11:56: Sodium 126 L, Potassium 4.0, Chloride 93 L, Carbon Dioxide 23.2, Anion Gap 10, BUN 16, Creatinine 0.69 L, Estim Creat Clear Calc 39.62 L, Est GFR (MDRD) Non-Af 87, BUN/Creatinine Ratio 22.7 H, Glucose 156 H, Calcium 8.8 Micro: Microbiology 12/03/24 20:10 Urine Catheter - Catheter Urine Culture - Preliminary Gram negative micah [facility] Poss Enterococcus sp
[2024-12-06] VITALS (11 sets, daily range): BP systolic 113–161; BP diastolic 32–69; PULSE 68–80; RESP 16–20; TEMP 36.2–36.7; O2SAT 96–99; BMI 23.9
[2024-12-06 06:06] LABS: Anion Gap 8 (5-15); BUN 13 mg/dL (4-19); BUN/Creat Ratio 19.4 RATIO (10-20); Calcium,Total 8.4 mg/dL (7.6-11.0); Carbon Dioxide 23.6 mmol/L (21.0-32.0); Chloride 101 mmol/L (98-108); Estimated Creatinine Clearance 39.62 ml/min (50-250); Glucose 99 mg/dL (70-99); Potassium 3.8 mmol/L (3.3-5.1)
[2024-12-06] MEDS: Zinc Sulfate 50 mg zinc (220 mg) ORAL capsule PO (09:32)
[2024-12-06] MEDS: Cholecalciferol (Vit D3) 125 MCG CAPSULE (5,000 UNITS) PO (09:35)
[2024-12-06] MEDS: APIXABAN 2.5 MG TABLET (WCH) PO ×2 (09:35→21:03)
--- NOTE | 2024-12-06 14:54 | CHAPLAIN ---
Type of Pastoral Visit _x__ Initial Visit ___ Follow-up Visit ___ On-call Visit ___ General Patient Visit ___ Spiritual Assessment ___ Family Conference ___ Bereavement ___ Rapid Response ___ Code Blue ___ Other (describe below) Pastoral Care Referral From _x__ Patient ___ Family ___ Nurse ___ Physician ___ Fitness And Wellness Instructor ___ Consultant Education ___ Other (describe below) Sacrament/Intervention _x__ Active listening ___ Anointing ___ Restorationist ___ Bereavement ___ Communion ___ Analy exploration ___ _x__ Life review _x__ Prayer ___ Reconciliation ___ Sacrament of Sick _x__ Supportive presence ___ Wedding ___ Other (describe below) Pastoral Comments patient has become weakened and is seeking support for new therapy placement; pt has hope of getting back and has family and cheondoism support; prayer welcomed
--- NOTE | 2024-12-06 14:55 | DS.PCM_ITS ---
Providers Date of Admission: 12/05/24 Date of Discharge: 12/06/24 Primary Care Physician: Dr. 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 EMERGENT Consult: No Notified: No Date Notified: 12/05/24 Time Notified: 07:09 12/05/24 07:43 Consult: Nephrology Routine Consulting Provider: Gagan Schulte Reason for Consult: hyponatremia acute with PKTY EMERGENT Consult: No Notified: Yes Date Notified: 12/05/24 Time Notified: 07:43 Method of Notification: Answering Service Reason For Visit: GENERALIZED WEAKNESS WITH AMBULATORY DYSFUNCTION Diagnosis Discharge Diagnosis (1) Hyponatremia: Status: Acute Code(s): E87.1 - Hypo-osmolality and hyponatremia Medications at Discharge Home Medications multivitamin 1 tablet PO DAILY supplement 08/12/20 cholecalciferol (vitamin D3) 125 mcg (5,000 unit) capsule 125 mcg PO DAILY supplement 08/14/20 cyanocobalamin (vitamin B-12) 500 mcg chewable tablet 1,000 mcg PO DAILY supplement 08/14/20 apixaban 2.5 mg tablet 2.5 mg PO BID called to [facility]180 tabs 08/13/24 acetaminophen 325 mg capsule 325 mg PO Q4H PRN pain 11/12/24 hydralazine 50 mg tablet 50 mg PO TID bp #90 tabs 11/27/24 levetiracetam 750 mg tablet 750 mg PO BID sezuire #60 tabs 11/27/24 amiodarone 200 mg tablet 200 mg PO DAILY heart #90 TABLETS 12/06/24 atorvastatin 10 mg tablet 10 mg PO QHS for cholesterol #90 TABLETS 12/06/24 sodium chloride 1,000 mg soluble tablet 1,000 mg PO Q4 #1 TAB 12/06/24 Hospital Course Operations None Procedures None Summary of Care Provided Minutes Spent on Discharge: 38 Hospital Course: Mrs. Marie is an 79-year-old white female who presented to the emergency department [facility] on 12/03/2024 with generalized weakness. She had a recent hospitalization and then was discharged to the rehab unit. She was there for acute rehab from November 13 through November 27 and discharged home on the . Patient reports that she actually fell getting into the house when she got home and has slowly declined since that point in time. It sounds like she is becoming progressively weak over the last several days prior to presentation and she had a history of hyponatremia so they were concerned that maybe her sodium levels were low again so they brought her from the emergency department for evaluation. She does have a history of urinary tract infections but denied dysuria or frequency at the time of presentation. Vital signs at time of presentation showed temperature 98.1, heart rate 79, respiratory 16, blood pressure 159/49 and pulse ox was 98% on room air. CBC showed chronic stable anemia with hemoglobin of 10 but was otherwise unremarkable. Chemistry panel was unremarkable. UA was not really suggestive of infection as she had no white cells but did have bacteria so I highly suspect bacteriuria. Culture was sent by the emergency department and she was started on antibiotics. Given her lack of symptoms this was discontinued. Sodium on presentation was 133. She has been diagnosed with SIADH and is on fluid restriction and salt tablets for this. She has required tolvaptan previously as well. She was initially given IV fluids and dropped her sodium to 130. We fluid restrict her diet and placed her on sodium yet her sodium still dropped to 126 so we gave her a dose of tolvaptan and consulted nephrology. With the fold apnea and continuing her fluid restriction as well as salt tablets her sodium has increased to 133 on the day of discharge. Dr. Schulte from nephrology has an appointment with her next week and suggested we increase her sodium tablets. She will now get sodium tablets 6 times daily and fluid restrict her diet to 1250 cc daily. She was seen by physical Occupational Therapy and they did feel that she would benefit from ongoing rehab services at discharge and family wanted her to go back to healthy living. As noted above, urine culture was obtained and while she had 2 organisms that grew both were significantly low colony counts not distant with acute infection and given the fact she was asymptomatic as well I feel that she has asymptomatic bacteriuria. Bed became available for her on 12/05/2024 with her improved sodium with verbal to discharge her in stable condition on 12/06/2024. Discharge diagnoses: Generalized weakness Falls neck pain debility Ambulatory dysfunction asymptomatic bacteriuria Hyponatremia secondary to SIADH Recent subdural hematoma Essential hypertension Hyperlipidemia Seizure disorder Chronic stage II diastolic dysfunction/HFpEF Physical Exam Const alert, oriented x3, no apparent distress, average body habitus and well nourished; Negative for healthy appearing Constitutional Narrative: Elderly, white female, lying in bed, appears somewhat frail but nontoxic, patient does seem to have some forgetfulness and memory loss General Appearance: cooperative, comfortable, well kempt and well developed Orientation / Consciousness: awake HEENT normocephalic, head/scalp atraumatic, hearing grossly normal bilaterally and moist oral mucous membranes HEENT Narrative: Mallampati 2, no thrush, dentures in place Eyes conjunctivae normal Eyes Narrative: No scleral icterus Neck supple Neck Narrative: Trachea midline Resp normal respiratory effort, no retractions, no use of accessory muscles and clear to auscultation bilaterally Auscultation: Negative for rales, rhonchi or wheezes Cardio regular rate, regular rhythm, S1 normal heart sound, S2 normal heart sound, no murmurs, no rub, no gallops and no clicks GI normal to inspection, nondistended, normoactive bowel sounds, soft to palpation and non-tender GI Narrative: No suprapubic tenderness present Extremity no clubbing, cyanosis or edema Extremity Narrative: 2+ pedal and radial pulses Skin skin turgor normal, no jaundice, no petechiae and no mottling Neuro oriented x3, moves all extremities and no focal motor deficits Neuro Narrative: Significant debility and generalized weakness noted, voice remains mildly tremulous Speech: Negative for speech normal Psych affect normal Psych Narrative: eye contact is good and patient interacts appropriately Weight / BMI Weight Weight: 48.3 kg Body Mass Index (BMI) 23.9 ABG / Lab / Microbiology Data 12/05/24 04:56 12/06/24 04:48 Laboratory: Laboratory Results - last 24 hr 12/06/24 04:48: Sodium 133, Potassium 3.8, Chloride 101, Carbon Dioxide 23.6, Anion Gap 8, BUN 13, Creatinine 0.68 L, Estim Creat Clear Calc 39.62 L, Est GFR (MDRD) Non-Af 88, BUN/Creatinine Ratio 19.4, Glucose 99, Calcium 8.4 Microbiology: Microbiology 12/03/24 20:10 Urine Catheter - Catheter Urine Culture - Final Pseudomonas aeruginosa Enterococcus faecalis D/C Instructions DC O2, CPAP, BIPAP Needs Home O2 Discharge instructions: No Meaningful Use Info Meaningful Use Meaningful Use Diagnoses (Choose all that apply): None applicable Ischemic Stroke Statin Dosing Therapy Reference: STATIN DOSE THERAPY REFERENCE: * Patients > 75 years receive moderate or high dose statin therapy. * Patients 75 years or YOUNGER should receive HIGH intensity statin dose unless contraindicated. You will be required to document reason for non-treatment if statin daily dose does not meet guidelines. HIGH DOSE STATIN THERAPY DAILY Atorvastatin > than or = to 40 mg Rosuvastatin > than or = to 20 mg Amlodipine + Atorvastatin > than or = to 2.5/40 mg Ezetimibe + Simvastatin 10/80 mg Simvastatin 80mg Discharge Plan Admission Admit Date/Time: 12/05/24 18:07 Primary Reason for Your Visit: Generalized weakness Attending Provider: Alix Hudson Primary Care Provider: Monika Venegas Consulting Providers: Darnell Gonzalez; Gagan Schulte Discharge Orders/Prescriptions Prescriptions: New sodium chloride 1,000 mg Tablet,Soluble 1,000 mg PO Q4 Qty: 1 0RF Continued multivitamin Tablet 1 tablet PO DAILY cyanocobalamin (vitamin B-12) 500 MCG tablet,chewable 1,000 mcg PO DAILY cholecalciferol (vitamin D3) 125 MCG capsule 125 mcg PO DAILY acetaminophen 325 mg capsule 325 mg PO Q4H PRN (Reason: pain) hydralazine 50 mg Tablet 50 mg PO TID Qty: 90 0RF levetiracetam 750 mg Tablet 750 mg PO BID Qty: 60 0RF apixaban 2.5 mg tablet 2.5 mg PO BID Qty: 180 4RF amiodarone 200 mg tablet 200 mg PO DAILY Qty: 90 3RF atorvastatin 10 mg tablet 10 mg PO QHS Qty: 90 3RF Discontinued sodium chloride 1,000 mg Tablet,Soluble 1,000 mg PO TIDCM Qty: 90 0RF Referrals / Follow Up: Monika Venegas MD [Primary Care Provider] - In 1 Week (After discharge from SNF) Gagan Schulte MD [Med Staff - Consulting] - See Referral Note (As scheduled for next week) Disposition Disposition (needs filled in before D/C Order can be placed): [facility] Facility Charges/Coding Visit Charges Inpatient E&M: 31694 SNF Disch >30 Min
--- NOTE | 2024-12-06 15:26 | TREXTCAR_ITS ---
Diet Diet Order/Speech Therapy: INPATIENT Hospital Diet / Speech Therapy Order(s) 12/03/24 22:56 Diet: Cardiac - Heart Healthy Food consistency:: Regular Liquid Consistency:: Regular/Thin Type of Dietary Supplement:: Bunny Fluid restriction:: 1250 mL Diet Comments: pineapple coconut bunny with breakfast and dinner Routine Orders/Code Status Suppository Frequency: Daily PRN Routine Lab Work: CBC (As needed) and BMP (12/10/2024) Code Status: Full Code DC O2, CPAP, BIPAP needs Home O2 Discharge instructions: No Wound(s) sacrum: Wound Type: Pressure Injury Therapies Weight Bearing: Full weight bearing Physical Therapy: Eval and Treat Occupational Therapy: Eval and Treat Problem/Diagnosis (1) Hyponatremia: Status: Acute Code(s): E87.1 - Hypo-osmolality and hyponatremia Allergies/Procedures Done in Hospital Allergies No Known Allergies Allergy (Verified 12/03/24 15:46) Procedures: None Type of Care/Length of Stay Estimated LOS: Convalescent Care Less Than 30 days Type of Care Needed: Skilled Rehab Potential: Fair Prognosis: Fair Additional Orders/Day of Discharge Day of Discharge: 12/06/24 Dietary and Speech Recommendations Dietitian Recommendations/Changes: Continue cardiac diet with 1250ml fluid restriction per MD. Will discontinue EPHP due to fluid restriction and replace with pineapple coconut bunny BID with breakfast and dinner to promote wound healing. Will monitor weight trends. Follow Up Care Please follow up with your Primary Care Physician in: 1 week after discharge from senior care facility Please Follow Up With: Gagan Schulte MD When: Next week as previously scheduled Discharge Plan Admission Admit Date/Time: 12/05/24 18:07 Primary Reason for Your Visit: Generalized weakness Attending Provider: Alix Hudson Primary Care Provider: Monika Venegas Consulting Providers: Darnell Gonzalez; Gagan Schulte Discharge Orders/Prescriptions Prescriptions: New sodium chloride 1,000 mg Tablet,Soluble 1,000 mg PO Q4 Qty: 1 0RF Continued multivitamin Tablet 1 tablet PO DAILY cyanocobalamin (vitamin B-12) 500 MCG tablet,chewable 1,000 mcg PO DAILY cholecalciferol (vitamin D3) 125 MCG capsule 125 mcg PO DAILY acetaminophen 325 mg capsule 325 mg PO Q4H PRN (Reason: pain) hydralazine 50 mg Tablet 50 mg PO TID Qty: 90 0RF levetiracetam 750 mg Tablet 750 mg PO BID Qty: 60 0RF apixaban 2.5 mg tablet 2.5 mg PO BID Qty: 180 4RF amiodarone 200 mg tablet 200 mg PO DAILY Qty: 90 3RF atorvastatin 10 mg tablet 10 mg PO QHS Qty: 90 3RF Discontinued sodium chloride 1,000 mg Tablet,Soluble 1,000 mg PO TIDCM Qty: 90 0RF Referrals / Follow Up: Monika Venegas MD [Primary Care Provider] - In 1 Week (After discharge from SNF) Gagan Schulte MD [Med Staff - Consulting] - See Referral Note (As scheduled for next week) Disposition Disposition (needs filled in before D/C Order can be placed): Longterm Facility
--- NOTE | 2024-12-06 16:31 | CASEMGMT ---
Social Work- Discharge to [facility], skilled level of care. Green sheet, HENS, transport on chart; final discharge arrangements and notification to patient/family as per aboriginal community council member. Plan: [facility]; skilled level of care KEY Srivastava
--- NOTE | 2024-12-06 16:39 | CASEMGMT ---
Discharge Planning Discharge orders and unsigned med list sent to [facility]. city secretary will scheduled transport when med list has been signed, as well as update [facility] and pts family. SW updated. Tricia Edge DC Planning Asst.
--- NOTE | 2024-12-06 17:17 | NURSING ---
report called to Karma the nurse at [place].
== END 2024-12-06 22:30 | disposition skilled nursing facility (03) | DRG 644 ==
LOC: ED 22:33 → MS3 22:38
PROVIDERS: Admitting Provider Internal Medicine; Emergency Provider Emergency Medicine; PCP Family Medicine; Referring Provider Internal Medicine; Visit Provider Internal Medicine
DX: E22.2 Syndrome of inappropriate secretion of antidiuretic hormone (principal); I62.9 Nontraumatic intracranial hemorrhage, unspecified; I50.32 Chronic diastolic (congestive) heart failure; I11.0 Hypertensive heart disease with heart failure; G40.909 Epilepsy, unspecified, not intractable, without status epilepticus; I48.0 Paroxysmal atrial fibrillation; E78.00 Pure hypercholesterolemia, unspecified; M54.2 Cervicalgia; R53.1 Weakness; R26.89 Other abnormalities of gait and mobility; Z90.710 Acquired absence of both cervix and uterus; Z79.01 Long term (current) use of anticoagulants; Z79.899 Other long term (current) drug therapy; R82.71 Bacteriuria; Z86.73 Personal history of transient ischemic attack (TIA), and cerebral infarction without residual deficits; Z86.79 Personal history of other diseases of the circulatory system; R82.998 Other abnormal findings in urine; R29.6 Repeated falls
CPT/HCPCS: 36415; 80048; 80053; 80061; 81001; 82607; 82746; 83036; 83690; 83735; 84100; 84443; 85025; 85027; 87077; 87086; 87088; 87184; 87186; 94668; 97162; 97166; 97530; 97535; 97802; 99285; A4216

== ENCOUNTER → 2024-12-20 | Outpatient (CLI) | payer MEDICARE, OTHER, SELFPAY ==
[2024-12-20 12:15] LABS: Hematocrit 32.7 % (37-47); Hemoglobin 11.4 g/dL (12.0-15.0); Mean Corp Hgb Conc 34.9 g/dL (32-36); Mean Corpuscular Volume 92.6 fL (81-99); Mean Platelet Vol. 10.7 fl (6.2-12.0); Platelet Count 259 K/mm3 (150-450); RBC Distribution Width CV 13.5 % (11.6-14.6); RBC Distribution Width SD 46.2 fl (35.1-43.9); Red Blood Count 3.53 M/mm3 (4.2-5.4); White Blood Count 7.9 K/mm3 (4.4-11.0)
[2024-12-20 13:14] LABS: Ammonia 23.1 umol/L (11-51)
[2024-12-20 16:51] LABS: AST(SGOT) 79 U/L (<=31); Alanine Aminotransfer ALT/SGPT 145 U/L (<=34); Albumin, Serum 3.9 g/dL (3.4-4.8); Alkaline Phosphatase 110 U/L (35-104); Anion Gap 10 (5-15); BUN 23 mg/dL (4-19); BUN/Creat Ratio 35.3 RATIO (10-20); Calcium,Total 9.3 mg/dL (7.6-11.0); Carbon Dioxide 24.6 mmol/L (21.0-32.0); Chloride 97 mmol/L (98-108); Globulin 2.2 g/dL (2.2-4.2); Glucose 143 mg/dL (70-99); Magnesium 1.9 mg/dL (1.5-2.2); Potassium 4.0 mmol/L (3.3-5.1)
[2024-12-20 17:19] LABS: Vitamin B12 2740 pg/mL (180-914)
--- OUTSIDE RECORDS SUMMARY | 2024-12-20 19:17 | XMS RPT_ITS | CCD ---
Author Organization [facility] Care Team Providers Care Implementation Lead Name Role Phone Dr. Monika Venegas Primary [...] Provider Dr. Howard Rivera Other Provider Roof GAME PRESERVE MANAGER, GAME PRESERVE MANAGER-C Jagdish Basilio Other Provider Beasley GAME PRESERVE MANAGER, GAME PRESERVE MANAGER-C Kourtney Other Provider MAGALY Palomo Other [...] Provider Dr. Mario Anand MDo Emergency Provider Theo DEL VALLE, Dr. Monika Smith Primary Care Provider Andrés DEL VALLE, Dr. Haynes Attending Provider Sementi DO, Dr. Jo-Ann Carias Admit Provider Sementi DO, Dr. Jo-Ann Carias Attending Provide r Sementi DO, Dr. Jo-Ann Carias Referring Provide r Xochitl DEL VALLE, Dr. Eldridge Other Provider Jude DEL VALLE, Dr. Saha Other Provider Eris DEL VALLE, Dr. Farah Other Provider Ivy TREJO, Dr. Phelps Other Provider Keyur DEL VALLE, Dr. Harrison Other Provider Ainsley DEL VALLE, Dr. Elaine Other Provider Mark DEL VALLE, Dr. Wei Other Provider Rochelle DEL VALLE, Dr. Sotelo Other Provider Celia DEL VALLE, Dr. Arreaga Other Provider Marianna MARY, Sylvia Other Provider Sementi DO, Dr. Jo-Ann Carias Other Provider de Chuy DO, Dr. Patrick Admit Provider Unavail able de Chuy DO, Dr. Patrick Attending Provider Unav ailable de Chuy DO, Dr. Patrick Referring Provider Unav ailable de Chuy DO, Dr. Patrick Admit Provider Unavail able de Chuy DO, Dr. Patrick Attending Provider Unav ailable de Chuy DO, Dr. Patrick Referring Provider Unav ailable de Chuy DO, Dr. Patrick Other Provider Unavail able Tristan , Dr. Thomson Attending Provider Tristan DO, Dr. Thomson Other Provider Donnell DEL VALLE, Celeste Attending Provider Unavaila ble Theo DEL VALLE, Dr. Monika Smith Referring Provider [phone] Dr. Rock Conn MD Attending Provider NIMO MCKEE Attending Unavailable NIMO MCKEE Referring Unavailable JOLLIFF, MONIKA S Primary Care Unavailable JOLLIFF, MONIKA S Primary Care Unavailable MCKEENIMO APODACA Attending Unavailable MCKEENIMO Referring Unavailable JOLLIFF, MONIKA S Primary Care Unavailable SEJAL HADLEY Referring Unavailable NIMO MCKEE Attending Unavailable ANAND, DALLAS Referring Unavailable JOHAN ZHU Admitting Unavailable MARY ELLEN HILTON Attending Unavailable CONSULT, SURGERY - NEURO Consulting Unavail able JOLLIFF, MONIKA S Primary Care Unavailable MCKEENIMO Attending Unavailable JOLLIFF, MONIKA S Primary Care Unavailable SALTS, KRISTINE A Referring Unavailable SALTS, KRISTINE A Referring Unavailable JOLLIFF, MONIKA S Primary Care Unavailable SALTS, KRISTINE A Attending Unavailable JOLLIFF, MONIKA S Referring Unavailable MCKEENIMO Attending Unavailable JOLLIFF, MONIKA S Primary Care Unavailable SementiJo-Ann Attending Unavaila ble Sementi, Jo-Ann Carias Consulting Unavaila ble Sementi, Jo-Ann Carias Referring Unavaila ble Sementi, Jo-Ann Carias Admitting Unavaila ble Jolliff, Monika S Primary Care Unavailable Jolliff, Monika S Primary Care Unavailable Jolliff, Monika S Referring Unavailable Lolly Palomo Attending Unavail able Jolliff, Monika S Primary Care Unavailable Jolliff, Monika S Referring Unavailable Rock Conn Attending Unavailable Celeste Treadwell Attending Unavailabl e Johersoniff, Monika S Primary Care Unavailable Jolliff, Monika S Primary Care Unavailable Celeste Treadwell Attending Unavailabl e Jolliff, Monika S Primary Care Unavailable Anand, Dallas Attending Unavailable Baknikis, Aziz Consulting Unavailable Jude, Yifan Consulting Unavailable Eris, Jayaprakas Consulting Unavailable Zidehsarai, Mattie Consulting Unavailable Tanphaichitr, Natthavat Consulting Unavaila ble Voroshilova, Argentina Consulting Unavailable Mark, Preti Consulting Unavailable Rochelle, Deepak Consulting Unavailable Celia, Gibson Consulting Unavailable Sylvia Cabral Consulting Unavailable Jolliff, Monika S Attending Unavailable Jolliff, Monika S Primary Care Unavailable Jolliff, Monika S Referring Unavailable TristanNati Referring Unavailable Jolliff, Monika S Primary Care Unavailable Nati Hudson Attending Unavailable Jolliff, Monika S Attending Unavailable Jolliff, Monika S Primary Care Unavailable Jolliff, Monika S Referring Unavailable Jolliff, Monika S Primary Care Unavailable Chente Leung Consulting Unavailable Semenjenny, Jo-Ann Carias Attending Unavaila ble Sementi, Jo-Ann Carias Referring Unavaila ble Sementi, Jo-Ann Carias Admitting Unavaila ble JudeYifan Consulting Unavailable Eris, Jayaprakas Consulting Unavailable Zidehsarai, Mattie Consulting Unavailable Tanphaichitr, Natthavat Consulting Unavaila ble Voroshilova, [place] Consulting Unavailable Mark, Preti Consulting Unavailable Deepak Byrd Consulting Unavailable Gibson Yang Consulting Unavailable Sylvia Cabral Consulting Unavailable Alix Hudson Attending Unavailable Jolliff, Monika S Primary Care Unavailable de Darnell Vera Admitting Unavailable Darnell Gonzalez Consulting Unavailable Darnell Gonzalez Referring Unavailable Eris, Jayaprakas Consulting Unavailable Jolliff, Monika S Primary Care Unavailable Provider, Ed Physician Attending Unavailab le Jolliff, Monika S Attending Unavailable Jolliff, Monika S Primary Care Unavailable Jolliff, Monika S Referring Unavailable Jolliff, Monika S Primary Care Unavailable de Darnell Vera Admitting Unavailable Darnell Gonzalez Consulting Unavailable Darnell Gonzalez Attending Unavailable Darnell Gonzalez Referring Unavailable Alix Hudson Attending Unavailable Alix Hudson Consulting Unavailable TristanNati Attending Unavailable Jolliff, Monika S Primary Care Unavailable Jolliff, Monika S Primary Care Unavailable Hayden Sadler Attending Unavailable Jolliff, Monika S Primary Care Unavailable Jolliff, Monika S Referring Unavailable Jolliff, Monika S Attending Unavailable Eris, Jayaprakas Consulting Unavailable Alix Hudson Attending Unavailable Johersoniff, Monika S Primary Care Unavailable Darnell Gonzalez Admitting Unavailable Darnell Gonzalez Referring Unavailable Darnell Gonzalez Consulting Unavailable Eris, Jayaprakas Consulting Unavailable Alix Hudson Consulting Unavailable Dr. Monika Venegas MD Primary Care Provider [phone] Dr. Hayden Sadler DO Attending Provider [phone] Dr. Hayden Sadler DO Emergency Provider [phone]
[2024-12-25 12:08] LABS: Vitamin D 1,25-Dihydroxy 42.2 pg/mL (24.8-81.5)
[2024-12-26 14:09] LABS: Folate, Hemolysate Test > 620.0 ng/mL (Not Estab.); Folate, RBC (Hct) Test 34.5 % (34.0-46.6); Folates, RBC Test > 1797 ng/mL (>498); KEPPRA (LEVETIRACETAM) 43.5 ug/mL (10.0-40.0); Vitamin B1, Thiamine 146.9 nmol/L (66.5-200.0)
== END | disposition home or self-care (01) ==
LOC: MTLAB 10:35
PROVIDERS: PCP Family Medicine; Referring Provider Psychiatry & Neurology Neurology; Visit Provider Psychiatry & Neurology Neurology
DX: G31.84 Mild cognitive impairment of uncertain or unknown etiology (principal); I10 Essential (primary) hypertension; G62.9 Polyneuropathy, unspecified
CPT/HCPCS: 36415; 80053; 80177; 82140; 82607; 82652; 82747; 83735; 83883; 84425; 84443; 85014; 85027

== ENCOUNTER → 2025-01-17 | Outpatient (CLI) | payer MEDICARE, OTHER, SELFPAY | END | disposition home or self-care (01) | PROVIDERS: PCP Family Medicine; Referring Provider Psychiatry & Neurology Neurology; Visit Provider Psychiatry & Neurology Neurology | DX: I62.03 Nontraumatic chronic subdural hemorrhage (principal); R56.9 Unspecified convulsions; Z98.890 Other specified postprocedural states; Z86.03 Personal history of neoplasm of uncertain behavior | CPT/HCPCS: 95819 ==

== ENCOUNTER → 2025-02-26 | Outpatient (CLI) | payer MEDICARE, OTHER, SELFPAY ==
[2025-02-26 15:32] LABS: Anion Gap 11 (5-15); BUN 14 mg/dL (4-19); BUN/Creat Ratio 19.2 RATIO (10-20); Calcium,Total 9.1 mg/dL (7.6-11.0); Carbon Dioxide 27.6 mmol/L (21.0-32.0); Chloride 99 mmol/L (98-108); Glucose 121 mg/dL (70-99); Potassium 2.9 mmol/L (3.3-5.1)
[2025-02-26 17:28] LABS: Osmolality, Serum 295 mOsm/KG (280-301); Osmolality, Urine 349 mOsm/KG
== END | disposition home or self-care (01) ==
LOC: MTLAB 10:57
PROVIDERS: PCP Family Medicine; Referring Provider Internal Medicine Nephrology; Visit Provider Internal Medicine Nephrology
DX: E22.2 Syndrome of inappropriate secretion of antidiuretic hormone (principal)
CPT/HCPCS: 36415; 80048; 83930; 83935; 84300

== ENCOUNTER → 2025-03-26 | Outpatient (CLI) | payer MEDICARE, OTHER, SELFPAY ==
--- OUTSIDE RECORDS SUMMARY | 2025-03-26 19:08 | XMS RPT_ITS | CCD ---
Author Organization [facility] Care Team Providers Care Cathodic Protection Technician Name Role Phone Dr. Monika Venegas Primary Care Provider Dr. Monika Venegas Referring Provider Dr. Rock Downing Attending Provider Monika Venegas MD Primary Care Provider Hugo, Dr. Jo-Ann Carias Admit Provider Dr. Jo-Ann Arias Attending Provider Dr. Jo-Ann Arias Other Provider Hugo, Dr. Jo-Ann Carias Referring Provider Monika Venegas MD Primary Care Provider Dr. Monkia Venegas Primary Care Provider Dr. Monika Venegas [...] Provider Dr. Howard Rivera Other Provider Roof NEWS ASSIGNMENT EDITOR, NEWS ASSIGNMENT EDITOR-C Jagdish Basilio Other Provider Beasley NEWS ASSIGNMENT EDITOR, NEWS ASSIGNMENT EDITOR-C Kourtney Other Provider MAGALY Palomo Other Provider [...] Attending Provide r Sementi DO, Dr. Jo-Ann Craias Referring Provide r Xochitl DEL VALLE, Dr. [...] DEL VALLE, Dr. Monika Smith Referring Provider Fabien DEL VALLE, Dr. Wilkerson Attending Provider Theo DEL VALLE, Dr. Monika Smith Primary Care Provider Sadler DO, Dr. Blake Attending Provider Sadler DO, Dr. Blake Emergency Provider Andrés DEL VALLE, Dr. Haynes Attending Provider Andrés DEL VALLE, Dr. Haynes Emergency Provider Semenjenny DO, Dr. Jo-Ann Carias Admit Provider Sementi [...] Arreaga Other Provider Sylvia Laughlin Other Provider Semenjenny DO, Dr. Jo-Ann Carias Other Provider de Chuy TREJO, Dr. Patrick Admit Provider Unavail able de Chuy DO, Dr. Patrick Attending Provider Unav ailable de Chuy DO, Dr. Patrick Other Provider Unavail able Tristan TREJO, Dr. Thomson Attending Provider Tristan TREJO, Dr. Thomson Other Provider de Chuy TREJO, Dr. Patrick Referring Provider Unav ailable Oleghe MD, Celeste Attending Provider Unavailtahir Venegas MD, Dr. Monika Smith Referring Provider [phone] Fabien DEL VALLE, Dr. Wilkerson Attending Provider Ruiz DEL VALLE, Dr. Donald Attending Provider Ruiz DEL VALLE, Dr. Donald Referring Provider Charles Sauceda Attending Provider [phone] Magno DEL VALLE, Dr. Nicole Primary Care Provider Donnell DEL VALLE, Dr. Alonso Attending Provider Ayaz NEWS ASSIGNMENT EDITOR-C, Cyndie Attending Provider Donnell DEL VALLE, Celeste Referring Provider Unavaila brisa Noyola MD, Dr. Jagdish Silver Primary Care Provider Magno DEL VALLE, Dr. Nicole Primary Care Provider Ayaz NEWS ASSIGNMENT EDITOR-C, Cyndie Attending Provider Alex Lockhart Attending Provider SHEBA BUENOSHUA D Attending Unavailable BUENO, NIMO D Referring Unavailable JOLLIFF, MONIKA S Primary Care Unavailable JOLLIFF, MONIKA S Referring Unavailable BUENO, NIMO D Attending Unavailable JOLLIFF, MONIKA S Primary Care Unavailable SALTS, KRISTINE A Referring Unavailable JOLLIFF, MONIKA S Primary Care Unavailable SALTS, KRISTINE A Attending Unavailable BUENO, NIMO D Attending Unavailable JOLLIFF, MONIKA S Primary Care Unavailable SALTS, KRISTINE A Referring Unavailable ANAND, DALLAS Referring Unavailable MARKO, HIBA R Admitting Unavailable YOBANI, ANGEL B Attending Unavailable CONSULT, SURGERY - NEURO Consulting Unavail able JOLLIFF, MONIKA S Primary Care Unavailable JOLLIFF, MONIKA S Primary Care Unavailable SEJAL HADLEY Referring Unavailable BUENO, NIMO D Attending Unavailable JOLLIFF, MONIKA S Primary Care Unavailable BUENO, NIMO D Attending Unavailable BUENO, NIMO D Referring Unavailable Magno DEL VALLE, Dr. Nicole Primary Care Provider [phone] Monika Venegas MD Primary Care Provider [phone] Doroteo TREJO, Dr. Blake Emergency Provider Magno DEL VALLE, Dr. Nicole Referring Provider Theo DEL VALLE, Dr. Monika Smith Primary Care Physician [phone] Andrés DEL VALLE, Dr. Haynes Attending Physician Andrés DEL VALLE, Dr. Haynes Emergency Department Physician Hugo DO, Dr. Jo-Ann Carias Admitting Physici an Sementi DO, Dr. Jo-Ann Carias Attending Physici an Xochilt DEL VALLE, Dr. Eldridge Nurse Practitioner Jude DEL VALLE, Dr. Saha Nurse Practitioner Eris DEL VALLE, Dr. Farah Nurse Practitioner Ivy TREJO, Dr. Phelps Nurse Practitioner Keyur DEL VALLE, Dr. Harrison Nurse Practitione r Ainsley DEL VALLE, Dr. Elaine Nurse Practitioner Mark DEL VALLE, Dr. Wei Nurse Practitioner Rochelle DEL VALLE, Dr. Sotelo Nurse Practitioner Celia DEL VALLE, Dr. Arreaga Nurse Practitioner Marianna SUÁREZ-CSylvia Nurse Practitioner Hugo DO, Dr. Jo-Ann Carias Nurse Practitione r Doroteo TREJO, Dr. Blake Emergency Department Physic nanette de Chuy TREJO, Dr. Patrick Admitting Physician Ingris vailable de Chuy TREJO, Dr. Patrick Attending Physician Ingris vailable de Chuy TREJO, Dr. Patrick Nurse Practitioner Unav ailable Tristan TREJO, Dr. Thomson Attending Physician Tristan TREJO, Dr. Thomson Nurse Practitioner Celeste Jacobo MD Attending Physician Gisell Kiran MD, Dr. Nicole Primary Care Physician Ayaz NEWS ASSIGNMENT EDITOR-C, Cyndie Attending Physician Donnell DEL VALLE, Dr. Alonso Attending Physician Fabien DEL VALLE, Dr. Wilkerson Attending Physician Ruiz DEL VALLE, Dr. Donald Attending Physician Charles Sauceda Attending Physician Dennys DEL VALLE, Dr. Jagdish Silver Primary Care Physician Alex Lockhart Attending Physician [phone] Eris DEL VALLE, Dr. Farah Attending Physician [phone] Eris DEL VALLE, Dr. Farah Referring Provider Theo DEL VALLE, Dr. Monika Smith Primary Care Physician Coral NEWS ASSIGNMENT EDITOR-C, Jagdish Basilio Attending Physician Gagan Schulte Referring Unavailable Kiran, Corey Primary Care Unavailable Gagan Schulte Attending Unavailable Jolliff, Monika S Primary Care Unavailable Hayden Sadler Attending Unavailable Jolliff, Monika S Referring Unavailable Odilon Melchor Attending Unavailable Jolliff, Monika S Primary Care Unavailable Jolliff, Monika S Primary Care Unavailable Celeste Treadwell Attending Unavailabl e Kiran, Corey Primary Care Unavailable Kiran, Corey Referring Unavailable Kiran, Corey Attending Unavailable Celeste Treadwell Attending Unavailsilvia e Celeste Treadwell Referring Unavailabl e Jolliff, Monika S Primary Care Unavailable Darnell Gonzalez Admitting Unavailable Darnell Gonzalez Referring Unavailable Darnell Gonzalez Consulting Unavailable Alix Hudson Attending Unavailable Jolliff, Monika S Primary Care Unavailable Eris Jayaprakaregino Consulting Unavailable Sheballiff, Monika S Primary Care Unavailable Jo-Ann Arias Attending Unavaila ble SementiJo-Ann Referring Unavaila ble Bakhous, Aziz Consulting Unavailable SemenJo-Ann alvarado Admitting Unavaila ble Jude, Yifan Consulting Unavailable Eris, Jayaprakas Consulting Unavailable Zidejanee, Mattie Consulting Unavailable Tanphaichitr, Natthavat Consulting Unavaila ble Voroshilova, [place] Consulting Unavailable Mark, Preti Consulting Unavailable Deepak Byrd Consulting Unavailable Gibson Yang Consulting Unavailable Sylvia Cabral Consulting Unavailable Jolliff, Monika S Primary Care Unavailable Provider, Ed Physician Attending Unavailab le Jolliff, Monika S Primary Care Unavailable Dallas Anand Attending Unavailable Jolliff, Monika S Primary Care Unavailable Nati Hudson Attending Unavailable Jolliff, Monika S Primary Care Unavailable Nati Hudson Attending Unavailable Nati Hudson Referring Unavailable Odilon Melchor Referring Unavailable Jolliff, Monika S Primary Care Unavailable Odilon Melchor Attending Unavailable Celeste Treadwell Attending UnavailJagdish Caballero Primary Care Unavailable OleghCeleste Salvador Attending Unavailabl e Jolliff, Monika S Primary Care Unavailable OleghCeleste Salvador Attending Unavailabl e Jolliff, Monika S Primary Care Unavailable Jolliff, Monika S Primary Care Unavailable Celeste Treadwell Attending UnavailDarnell Chambers Admitting Unavailable Darnell Gonzalez Referring Unavailable Darnell Gonzalez Attending Unavailable Darnell Gonzalez Consulting Unavailable Jolliff, Monika S Primary Care Unavailable Sementi, Jo-Ann Carias Admitting Unavaila ble Sementi, Jo-Ann Carias Referring Unavaila ble Sementi, Jo-Ann Carias Attending Unavaila ble Sementi, Jo-Ann Carias Consulting Unavaila ble Jolliff, Monika S Primary Care Unavailable Jagdish Moncada NP Attending Unavailable Kiran, Corey Primary Care Unavailable Kiran, Corey Referring Unavailable Jolliff, Monika S Referring Unavailable Jolliff, Monika S Primary Care Unavailable Rock Conn Attending Unavailable Jolliff, Monika S Primary Care Unavailable Jolliff, Monika S Referring Unavailable Jolliff, Monika S Attending Unavailable Jolliff, Monika S Referring Unavailable Charles Sauceda Attending Unavailable Jolliff, Monika S Primary Care Unavailable Cyndie Jacome NP Attending Unavailable Kiran, Corey Primary Care Unavailable Celeste Jacobo Attending Unavailable Kiran, Corey Primary Care Unavailable Ayaz NEWS ASSIGNMENT EDITORCyndie Attending Unavailable Kiran, Corey Primary Care Unavailable Jolliff, Monika S Referring Unavailable Alex Contreras Attending Unavailable Kiran, Corey Primary Care Unavailable Chente Leung Consulting Unavailable Yifan Roque Consulting Unavailable Gagan Schulte Consulting Unavailable Mattie Haynes Consulting Unavailable TanChristy menezes Consulting Unavaila [place] Connell Consulting Unavailable Sanjuana Flores Consulting Unavailable Deepak Byrd Consulting Unavailable Gibson Yang Consulting Unavailable Sylvia Cabral Consulting Unavailable Alix Hudson Attending Unavailable Alix Hudson Consulting Unavailable Eris, Gagan Consulting Unavailable Darnell Gonzalez Admitting Unavailable Darnell Gonzalez Referring Unavailable Alix Hudson Attending Unavailable Monika Venegas Primary Care Unavailable Darnell Gonzalez Consulting Unavailable Eris, Gagan Consulting Unavailable Alix Hudson Consulting Unavailable Corey Kiran Referring Unavailable Corey Kiran Primary Care Unavailable Alex Contreras Attending Unavailable Moniak Venegas Referring Unavailable Odilon Melchor Attending Unavailable Corey Kiran Primary Care Unavailable Odilon Melchor Attending Unavailable Odilon Melchor Referring Unavailable Corey Kiran Primary Care Unavailable Medications Current Medications Medication Drug Class(es) Dates Sig (Normalized) Sig (Original) acetaminophen 325 mg oral capsule (20 sources) Start: 11-12-2024 Start: 11-08-2024 End: 11-12-2024 take 1 tablet by mouth every six hours as needed 650 mg, Oral, EVERY 6 HOURS NEEDED, Starting on Tue11/08/24 at 1551, Until Tue11/12/24 at 1804, Mild Pain, Oral temp > 100.4 F, Headaches, Alternate with ibuprofen if ordered, Maximum dose of acetaminophen is 4000 mg from all sources in 24 hours or 2000 mg from all sources in patients with cirrhosis in 24 hours. Start: 09-27-2024 End: 11-13-2024 Start: 12-06-2022 take 1 tablet nasoga stric route every four hours as needed Acetaminophen 325 MG tablet 1 tablet by Per NG tube route every 4 hours as needed for Mild Pain. 30 tablet 12/06/2022 Active Start: 12-06-2022 End: 09-27-2024 Start: 12-06-2022 End: 09-27-2024 take 2 tablets by mouth every four hours as needed for pain Acetaminophen (Tylenol) 325 mg tablet Discontinued 650 mg PO Q4H as needed for pain December 06, 2022 12:00am September 27, 2024 9:59am apixaban 2.5 mg oral tablet (20 sources) Factor Xa Inhibitor Start: 08-13-2024 End: 11-12-2024 Start: 08-13-2024 take 1 tablet by melo th twice daily Apixaban 2.5 mg tablet Active 2.5 mg PO TWICE A DAY 180 4 August 13, 2024 12:00am called to [facility] Start: 12-29-2022 End: 11-12-2024 Wwifbnwy-Aomhjxnpl-Iqgnexz H mb (Bunny) 7-7-1.5 gram powder in packet (1 source) Start: 12-11-2024 Qruegwer-Kqphctldn-Gktzoiy Hmb (Bunny) 7-7-1.5 gram powder in packet Active 1 NMA PO TWICE A DAY December 11, 2024 12:00am carvedilol 6.25 mg oral tabl et (20 sources) alpha-Adren ergic Bright, beta-Adrene rgic Bright Start: 01-18-2025 Start: 12-03-2024 End: 12-03-2024 Start: 11-08-2024 End: 11-12-2024 Start: 12-06-2022 End: 11-12-2024 carveDILOL 12.5 MG tablet 1 tablet by Per NG tube route every 12 hours. 60 tablet 12/06/2022 11/12/2024 Discontinued (Stop Taking at Discharge) Start: 12-06-2022 End: 11-13-2024 cholecalciferol 0.125 mg ora l capsule (20 sources) Vitamin D Start: 08-14-2020 End: 11-17-2022 docusate sodium 50 mg / anthony osides, intermediate 8.6 mg oral tablet (13 sources) Start: 03-13-2025 Start: 12-20-2024 End: 03-13-2025 furosemide 20 mg oral tablet (1 source) Loop Diuretic Start: 03-13-2025 hydrALAZINE hydrochloride 10 0 mg oral tablet (20 sources) Arteriolar Vasodilator Start: 02-07-2025 Start: 11-27-2024 End: 02-07-2025 levETIRAcetam 250 mg oral ta blet (20 sources) Start: 02-26-2025 Start: 01-31-2025 End: 02-26-2025 Start: 11-27-2024 End: 01-31-2025 Start: 11-12-2024 End: 11-27-2024 Start: 11-12-2024 End: 11-27-2024 take 1 tablet [...] DAILY August 12, 2020 1:00am Multivitamin tablet (7 sources) Start: 08-12-2020 Multivitamin t ablet Active 1 {tbl} PO DAILY August 12, 2020 1:00am supplement Start: 08-12-2020 Multivitamin t ablet Active 1 {tbl} PO DAILY August 12, 2020 1:00am vitamin b12 0.5 mg chewable tablet (20 sources) Vitamin B12 Start: 08-14-2020 Start: 08-14-2020 take 1000 ug by mout h once daily Cyanocobalamin (Vitamin B-12) Active 1000 MCG PO DAILY August 14, 2020 12:00am vitamin b6 50 mg oral tablet (3 sources) Start: 01-31-2025 Zinc (5 sources) Zinc 50 MG table t Take by mouth. 0 Active (20 sources) Start: 01-31-2025 Start: 01-31-2025 Start: 12-20-2024 End: 01-31-2025 Start: 12-20-2024 Start: 12-11-2024 End: 01-31-2025 Start: 12-11-2024 Start: 11-12-2024 End: 12-03-2024 Start: 09-27-2024 End: 11-13-2024 Start: 12-12-2023 End: 11-13-2024 Start: 12-06-2022 End: 01-13-2023 Start: 08-14-2020 End: 01-13-2023 Start: 08-12-2020 End: 01-31-2025 Start: 08-12-2020 Completed/Discontinued Medications Medication Drug Class(es) Dates Sig (Normalized) Sig (Original) acetaminophen 325 mg / oxyCODONE hydrochloride 5 mg oral tablet (20 sources) Opioid Agonist Start: 08-19-2020 End: 08-24-2020 Start: 08-19-2020 End: 08-24-2020 Oxycodone-Acetaminophen 1 EA [...] 2020 August 23, 2020 11:03pm amiodarone hydrochloride 100 mg oral tablet (20 sources) Antiarrhythmic Start: 12-11-2024 End: 01-18-2025 Start: 12-24-2022 End: 12-11-2024 ascorbic acid 500 mg oral tablet (20 sources) Vitamin C Start: 12-06-2022 End: 01-13-2023 Ascorbic Acid-Elderberry Fruit (10 sources) Start: 08-14-2020 [...] 1:00am Ascorbic Acid-Elderberry Fruit 1 EACH tablet,chewable (7 sources) Start: 08-14-2020 End: 01-13-2023 take 1 [...] sources) beta-Adrenergic Bright Start: 07-05-2018 End: 12-24-2022 End: 12-06-2022 take 1 tablet by mouth [...] sources) HMG-CoA Reductase Inhibitor Start: 07-05-2018 End: 12-11-2024 Bvhfvxxau-Gdliaxsxbfg-J it D (OSTEO BI-FLEX ONE PER DAY PO) (6 sources) End: 10-13-2022 Boswellia-Glucosamine- Vit D (OSTEO BI-FLEX ONE PER DAY PO) Take by mouth. 10/13/2022 Discontinued (Stop Taking at Discharge) Boswellia-Glucos amine-Vit D (OSTEO BI-FLEX ONE PER DAY PO) Take by mouth. 0 Active calcium carbonate 1250 mg / cholecalciferol 600 unt oral tablet (20 sources) Vitamin D Start: 08-14-2020 End: 09-27-2024 Start: 08-14-2020 End: 09-27-2024 Calcium Carbonate-Vitamin D3 [...] CITRATE+D3 PO) Take by mouth. 0 Active cefdinir 300 mg oral capsule (20 sources) Cephalosporin Antibacterial Start: 11-12-2024 End: 11-27-2024 Start: 11-12-2024 End: 11-27-2024 take 1 capsule by mouth twice daily Cefdinir 300 mg capsule Discontinued 300 mg PO TWICE A DAY November 12, 2024 12:00am November 27, 2024 4:42pm UTI cefTRIAXone 1000 mg injection (2 sources) Cephalosporin Antibacterial Start: 11-09-2024 End: 11-12-2024 1 g, Intravenous, Administer over 30 Minutes, DAILY, First dose on Tue11/09/24 at 1030, Until Discontinued cephalexin 500 mg oral capsule (20 sources) Cephalosporin Antibacterial Start: 12-06-2022 End: 12-29-2022 docusate sodium 100 mg oral capsule (20 sources) Start: 08-19-2020 End: 08-28-2020 doxazosin 2 mg oral tablet (20 sources) alpha-Adrenergic Bright Start: 12-03-2024 End: 12-03-2024 Start: 11-08-2024 End: 11-10-2024 take 2 mg by mouth once daily 2 mg, Oral, Nightly, Fir st dose on Tue11/08/24 at 2100, Until Discontinued Start: 12-06-2022 End: 11-13-2024 ferrous sulfate 325 mg oral tablet (20 sources) Start: 12-06-2022 End: 01-13-2023 Gadopiclenol SOLN 1-25 mL (6 sources) Start: 11-10-2024 End: 11-10-2024 1-25 mL, Intravenous, ONCE, 1 dose, On 11/10/24 at 1100 Start: 07-11-2024 End: 07-11-2024 1-25 mL, Intravenous, ONCE, 1 dose, On 07/11/24 at 0945 Start: 03-14-2024 End: 03-14-2024 1-25 [...] Dotatate (Nets pot) 0.5-5.94 millicurie Garlic preparation (13 sources) Non-Standardized Food Allergenic Extract Start: 09-27-2024 [...] 1549, Until Tue11/12/24 at 1804, Cough, Congestion hydroCHLOROthiazide 25 mg oral tablet (20 sources) Thiazide Diuretic Start: 07-05-2018 End: 11-12-2024 linezolid 600 mg oral tablet (20 sources) Oxazolidinone Antibacterial Start: 12-06-2022 End: 12-29-2022 lisinopril 10 mg oral tablet (20 sources) Angiotensin Converting Enzyme Inhibitor Start: 11-11-2024 End: 11-27-2024 Start: 12-29-2022 End: 11-12-2024 losartan potassium 25 mg oral tablet (9 sources) Angiotensin 2 Receptor Bright Start: 01-31-2025 End: 02-19-2025 Magnesium Chloride (20 sources) Start: 11-12-2024 End: [...] 128 MG PO TWICE A DAY 60 Kalie 25th, 2023 11:00pm Start: 12-29-2022 End: 09-27-2024 magnesium hydroxide 80 mg/ml oral suspension (3 sources) Start: 12-20-2024 End: 01-31-2025 melatonin 3 mg oral tablet (2 sources) [...] (ZOFRAN) injection 4 mg polyethylene glycol 3350 80100 mg powder for oral solution (20 sources) Osmotic Laxative Start: 11-09-2024 End: 11-12-2024 17 g, Oral, DAILY, First dose on Tue11/09/24 at 0900, Until Discontinued Start: 12-06-2022 End: 12-29-2022 potassium chloride 20 meq extended release oral tablet (19 sources) Start: 01-17-2024 End: 09-27-2024 Selenium (3 sources) Start: 12-06-2022 End: 01-13-2023 [...] 06, 2022 12:00am Selenium 200 mcg capsule (7 sources) Start: 12-06-2022 End: 01-13-2023 take 1 capsule by mouth once daily Selenium 200 mcg capsule Discontinued 200 ug PO DAILY December 06, 2022 12:00am January 13, 2023 1:18pm vitamin Start: 12-06-2022 End: 01-13-2023 take 1 capsule by mouth once daily Selenium 200 mcg capsule Discontinued 200 ug PO DAILY December 06, 2022 12:00am January 13, 2023 1:18pm sennosides, intermediate 8.6 mg oral tablet (2 sources) Start: 11-08-2024 End: 11-12-2024 take 8.6 mg by mouth once daily as needed for constipation 8.6 mg, Oral, DAILY NEEDED, Starting on Donita 11/08/24 at 1551, Until Tue11/12/24 at 1804, Constipation 1st Line sodium chloride 1000 mg oral tablet (20 sources) Start: 11-27-2024 End: 03-13-2025 Start: 11-27-2024 End: 12-06-2024 take 1 tablet by mouth three times daily at mealtime Sodium Chloride 1,000 mg Tablet,Soluble Discontinued 1000 mg PO 3 TIMES DAILY WITH MEALS 90 0 November 27, 2024 12:00am December 06, 2024 2:56pm low sodium Start: 11-08-2024 End: 11-12-2024 Intravenous, [...] Flush, MR Procedure Start: 12-06-2022 End: 12-29-2022 Start: 12-06-2022 End: 12-29-2022 take 2 tablets [...] njection 1-100 mL spironolactone 25 mg oral ta blet (20 sources) Aldosterone Antagonist Start: 12-03-2024 End: 12-03-2024 Start: 09-27-2024 End: 11-13-2024 Start: 03-20-2024 End: 11-12-2024 take 25 mg by mouth once daily Spironolactone 25 MG/5ML Suspension Take 25 mg by mouth daily. 03/20/2024 11/12/2024 Discontinued (Stop Taking at Discharge) zinc gluconate 50 mg oral tablet (1 source) End: 10-13-2022 Zinc 50 MG tablet Take by [facility]. 10/13/2022 Discontinued (Stop Taking at Discharge) zinc sulfate 220 mg oral capsule (20 sources) Start: 12-06-2022 End: 12-03-2024 Problems Active Problems Problem Classification Problem Date Documented Da te Episodic/Chronic Acute cerebrovascular disease (20 sources) Ischemic stroke; Translations: [Cerebral infarction, unspecified] Onset: 12-10-2024 12-08-2022 Chronic Comment on above: suspect embolic - mu ltiple foci in different areas of the brain Suspect embolic - mu ltiple foci in different areas of the brain in 2022 following excision of meningioma......had AF at the time. Acute posthemorrhagic anemia (20 sources) Acute posthemorrhagic anemia; Translations: [Acute posthemorrhagic anemia] 12-08-2022 Episodic Anxiety disorders (20 sources) Severe anxiety (panic); Translations: [Anxiety disorder, unspecified] Onset: 11-29-2024 11-29-2024 Chronic Cancer of brain and nervous system (20 sources) Malignant neoplasm of cerebral meninges; Translations: [Malignant neoplasm of cerebral meninges] Onset: 01-06-2023 01-12-2023 Chronic Cardiac dysrhythmias (20 sources) Paroxysmal atrial fibrillation; Translations: [Paroxysmal atrial fibrillation] Onset: 11-07-2024 01-09-2023 Chronic Comment on above: New onset on 12/25/19 23 Chronic ulcer of skin (20 sources) Pressure ulcer of sacral region, stage 2; Translations: [Pressure injury of coccygeal region, stage 2] Onset: 11-29-2024 11-29-2024 Chronic Deficiency and other anemia (20 sources) Chronic anemia; Translations: [Anemia, unspecified] 11-13-2024 Episodic Disorders of lipid metabolism (20 sources) Hyperlipidemia; Translations: [Hyperlipidemia, unspecified] Onset: 05-15-2024 Chronic E Codes: Fall (20 sources) Fall; Translations: [Unspecified fall, initial encounter] 03-05-2022 Episodic Epilepsy; convulsions (20 sources) Seizure disorder; Translations: [Epilepsy, unspecified, not intractable, without status epilepticus] Onset: 12-04-2024 11-13-2024 Chronic Epilepsy; convulsions (20 sources) Seizure; Translations: [Unspecified convulsions] Onset: 11-07-2024 11-12-2024 Episodic Essential hypertension (20 sources) Essential hypertension; Translations: [Essential (primary) hypertension] Onset: 11-29-2024 Chronic Gastrointestinal hemorrhage (20 sources) Rectal hemorrhage; Translations: [Hemorrhage of anus and rectum] 08-28-2020 Episodic Heart valve disorders (20 sources) Mitral valve stenosis; 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] Onset: 11-29-2024 12-08-2022 Chronic Heart valve disorders (20 sources) Heart murmur; Translations: [Cardiac murmur, unspecified] Onset: 11-07-2024 11-12-2024 Episodic Hemorrhoids (20 sources) Hemorrhoids; Translations: [Unspecified hemorrhoids] 08-28-2020 Episodic Intestinal infection (19 sources) Clostridioides difficile infection; Translations: [Enterocolitis due to Clostridium difficile, not specified as recurrent] 12-07-2022 Episodic Malignant neoplasm without specification of site (20 sources) Malignant neuroendocrine tumor; Translations: [Other malignant neuroendocrine tumors] Onset: 01-06-2023 01-12-2023 Chronic Mycoses (20 sources) Candidiasis of mouth; Translations: [Candidal stomatitis] 12-08-2022 Episodic Other aftercare (2 sources) Drug therapy finding; Translations: [Other intermediate (current) drug therapy] 07-19-2023 Episodic Other aftercare (20 sources) Long-term current use of anticoagulant; Translations: [jail (current) use of anticoagulants] 11-07-2024 Episodic Comment on above: On Eliquis for PAF.. 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 Other aftercare (20 sources) Long-term current use of amiodarone; Translations: [Other intermediate (current) drug therapy] 07-19-2023 Episodic Other and ill-defined cerebrovascular disease (20 sources) Cerebrovascular disease; Translations: [Cerebrovascular disease, unspecified] 12-08-2022 Chronic Other and ill-defined cerebrovascular disease (1 source) Cerebrovascular disease, unspecified; Translations: [Unspecified cerebrovascular disease] 12-23-2022 Chronic Other and ill-defined heart disease (20 sources) Diastolic dysfunction; Translations: [Other ill-defined heart diseases] 11-29-2024 Chronic Other and ill-defined heart disease (1 source) Other ill-defined heart diseases; Translations: [Other ill-defined heart diseases] Onset: 11-29-2024 Chronic Other circulatory disease (20 sources) Carotid bruit; Translations: [Other specified symptoms and signs involving the circulatory and respiratory systems] 07-19-2023 Episodic Comment on above: No significant extra cranial stenosis on MRA November 2024.......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; Translations: [Personal history of other diseases of the circulatory system] 12-04-2024 Episodic Other connective tissue disease (20 sources) Muscle weakness; Translations: [Muscle weakness (generalized)] 11-29-2024 Episodic Other connective tissue disease (20 sources) Recurrent falls ; Translations: [Repeated falls] 12-04-2024 Episodic Other ear and sense organ disorders (20 sources) Excessive cerumen in ear canal ; Translations: [Impacted cerumen, bilateral] 12-20-2022 Episodic Other ear and sense organ disorders (2 sources) Impacted cerumen, bilateral; Translations: [Impacted cerumen] 12-23-2022 Episodic Other ear and sense organ disorders (20 sources) Presbycusis; Translations: [Presbycusis, unspecified ear] 11-29-2024 Episodic Other ear and sense organ disorders (14 sources) Impacted cerumen; Translations: [Impacted cerumen, bilateral] 12-20-2024 Episodic Other ear and sense organ disorders (6 sources) Impacted cerumen of bilateral ears; Translations: [Impacted cerumen, bilateral] 12-20-2024 Episodic Other endocrine disorders (1 source) Syndrome of inappropriate secretion of antidiuretic hormone; Translations: [Syndrome of inappropriate secretion of antidiuretic hormone] Onset: 03-07-2025 Chronic Other hereditary and degenerative nervous system conditions (20 sources) Impaired cognition; Translations: [Mild cognitive impairment, so stated] 12-20-2024 Chronic Other hereditary and degenerative nervous system conditions (1 source) Mild cognitive impairment, so stated; Translations: [Mild cognitive impairment of uncertain or unknown etiology] Onset: 12-26-2024 Chronic Other nervous system disorders (18 sources) Difficulty walking; Translations: [Difficulty in walking, not elsewhere classified] 11-07-2024 Chronic Other nervous system disorders (20 sources) Walking disability; Translations: [Difficulty in walking, not elsewhere classified] 12-03-2024 Chronic Other nervous system disorders (11 sources) Neuropathy; Translations: [Polyneuropathy, unspecified] 12-20-2024 Chronic Other nervous system disorders (10 sources) Chronic pain; Translations: [Other chronic pain] 12-25-2024 Chronic Other nervous system disorders (1 source) Polyneuropathy, unspecified; Translations: [Polyneuropathy, unspecified] Onset: 12-20-2024 Chronic Other nervous system disorders (1 source) Difficulty in walking, not elsewhere classified; Translations: [Difficulty in walking, not elsewhere classified] Onset: 12-10-2024 Chronic Other screening for suspected conditions (not mental disorders or infectious disease) (20 sources) Other specified abnormal findings of blood chemistry; Translations: [Elevated liver function tests] Onset: 01-18-2025 12-11-2024 Episodic Other skin disorders (20 sources) Lesion of scalp; Translations: [Disorder of [...] since made a referral to neurosurgery with [facility]. Today I did share CT [...] skin changes] 07-11-2024 Episodic Pulmonary heart disease (20 sources) Pulmonary hypertension; Translations: [Pulmonary hypertension, unspecified] 12-08-2022 Chronic Residual codes; unclassified (20 sources) History of craniotomy; Translations: [Other specified postprocedural states] 12-08-2022 Episodic Comment on above: November 22 [address] [facility] [address] Kincaid. Residual codes; unclassified (1 source) Other specified postprocedural states; Translations: [Other postprocedural status] 12-23-2022 Episodic Residual codes; unclassified (2 sources) Personal history of irradiation; Translations: [Personal history of irradiation] Onset: 12-13-2024 Episodic Sprains and strains (20 sources) Lumbosacral strain; Translations: [Strain of muscle, fascia and tendon of lower back, initial encounter] 07-06-2018 Episodic Superficial injury; contusion (20 sources) Contusion of shoulder region; Translations: [Contusion of left shoulder, initial encounter] 08-08-2021 Episodic Unclassified (18 sources) Parkinson's disease; Translations: [Parkinson's disease] 01-06-2025 Chronic Unclassified (5 sources) this will be an over the phone appt. Unclassified (5 sources) Seeing Dr. Kiran from now on. Unclassified (5 sources) Dr Schulte's office will contact you Unclassified (3 sources) After discharge from SNF Unclassified (3 sources) As scheduled for next week Unclassified (1 source) Epidural hemorrhage with loss of consciousness status unknown, initial encounter; Translations: [Epidural hemorrhage with loss of consciousness status unknown, initial encounter] Onset: 12-10-2024 Past or Other Problems Problem Classification Problem Date Documented Da te Episodic/Chronic Cardiac dysrhythmias (20 sources) Sinus bradycardia; Translations: [Bradycardia, unspecified] Onset: 11-29-2024 11-07-2024 Episodic Deficiency and other anemia (20 sources) Anemia; Translations: [Anemia, unspecified] Onset: 11-16-2022 11-17-2022 Episodic Deficiency and other anemia (1 source) Anemia, unspecified; Translations: [Anemia, unspecified] Onset: 11-29-2024 Episodic Fluid and electrolyte disorders (20 sources) Hyponatremia; Translations: [Hypo-osmolality and hyponatremia] Onset: 11-17-2022 12-08-2022 Episodic Comment on above: Acute on chronic.... suspect SIADH Genitourinary symptoms and ill-defined conditions (20 sources) Abnormal urinalysis; Translations: [Unspecified abnormal findings in urine] Onset: 12-06-2024 12-04-2024 Episodic Intracranial injury (20 sources) Hematoma; Translations: [Epidural hematoma] Onset: 11-08-2024 11-08-2024 Episodic Comment on above: possible subactue co mponent. Neurosurgery recommended holding Eliquis for 2 weeks. Essentially unchanged from previous study Malaise and fatigue (20 sources) Asthenia; Translations: [Other malaise] Onset: 11-29-2024 12-08-2022 Episodic Mood disorders (20 sources) Mood disorders Onset: 09-30-2022 Resolved: 07-11-2024 09-30-2022 Nonspecific chest pain (20 sources) Chest pain; Translations: [Chest pain, unspecified] Onset: 10-01-2024 09-27-2024 Episodic Other aftercare (3 sources) Other intermediate (current) drug therapy; Translations: [Long-term (current) use of other medications] Onset: 11-29-2024 07-19-2023 Episodic Other aftercare (1 source) jail (current) use of anticoagulants; Translations: [jail (current) use of anticoagulants] Onset: 12-10-2024 Episodic Other bone disease and musculoskeletal deformities (20 sources) Mass of head; Translations: [Other specified disorders of bone, other site] Onset: 10-04-2022 Episodic Other circulatory disease (2 sources) Other specified symptoms and signs involving the circulatory and respiratory systems; Translations: [Other symptoms involving cardiovascular system] Onset: 11-29-2024 07-19-2023 Episodic Other circulatory disease (1 source) Personal history of other diseases of the circulatory system; Translations: [Personal history of other diseases of the circulatory system] Onset: 12-10-2024 Episodic Other connective tissue disease (1 source) Repeated falls; Translations: [Repeated falls] Onset: 12-06-2024 Episodic Other connective tissue disease (1 source) Muscle weakness (generalized); Translations: [Muscle weakness (generalized)] Onset: 11-29-2024 Episodic Other ear and sense organ disorders (1 source) Presbycusis, unspecified ear; Translations: [Presbycusis, unspecified ear] Onset: 11-29-2024 Episodic Other ear and sense organ disorders (1 source) Presbycusis, bilateral; Translations: [Presbycusis, bilateral] Onset: 11-29-2024 Episodic Other nervous system disorders (20 sources) [...] 09-30-2022 Unclassified (1 source) Skin finding 08-06-2024 Urinary tract infections (20 sources) Acute cystitis; Translations: [Acute cystitis without hematuria] Onset: 11-29-2024 11-29-2024 Episodic Results Test Name Value Interpretation Reference Range Facility Cardiology Visit Reporton Cardiology Visit Report Normal [facility] Urine Sodiumon 02-27-2025 Sodium (U) [Moles/Vol] 146 mmol/L Normal Not Establ. [facility] Comment on above: Order Comment: KEVIN Silver ADD SODIUM URINE MISSED FROM 02/26 Performed By: #### L 501.7400, L501.7300, L500.2500, L501.5500 ####[facility] [address] [place], [address] Anion gap in Serum or Plasma Ordered By: Gagan Schulte on 02-26-2025 Anion gap [Moles/Vol] 11 mmol/L - [facility] BUN/creatinine ratioOrdered By: Gagan Schulte on 02-26-2025 Urea nitrogen/Creatinine [Mass ratio] 19.2 mg/mg - [facility] Basic Metabolic Profile (BMP )on 02-26-2025 BUN/CRE 19.2 RATIO Normal 03-25 [facility] Comment on above: Performed By: #### L 501.7400, L501.7300, L500.2500, L501.5500 ####[facility] [address] [place], [address] Calcium [Mass/Vol] 9.1 mg/dL Normal 7.6-11.0 [facility] Comment on above: Performed By: #### L 501.7400, L501.7300, L500.2500, L501.5500 ####[facility] [address] [place], [address] Chloride [Moles/Vol] 99 mmol/L Normal 98-108 [facility] Comment on above: Performed By: #### L [id number], L501.7300, L500.2500, L501.5500 ####[facility] [address] [place], [address] CO2 [Moles/Vol] 27.6 mmol/L Normal 21.0-32.0 [facility] Comment on above: Performed By: #### L [id number], L501.7300, L500.2500, L501.5500 ####[facility] [address] [place], [address] Creatinine [Mass/Vol] 0.72 mg/dL Normal 0.70-1.20 [facility] Comment on above: Performed By: #### L 501.7400, L501.7300, L500.2500, L501.5500 ####[facility] [address] [place], [address] GAP 11 Normal 5-15 [facility] Comment on above: Performed By: #### L 501.7400, L501.7300, L500.2500, L501.5500 ####[facility] [address] [place], [address] GFR/1.73 sq M.predicted among non-blacks MDRD (S/P/Bld) [Vol rate/Area] 84 mL/min/{1.73_m2} Normal >60 [facility] Comment on above: Result Comment: mL/m in/1.73m2 CKD-EPI Creatinine Equation (2020) Performed By: #### L 501.7400, L501.7300, L500.2500, L501.5500 ####[facility] [address] [place], [address] Glucose [Mass/Vol] 121 mg/dL High 70-99 [facility] Comment on above: Performed By: #### L 501.7400, L501.7300, L500.2500, L501.5500 ####[facility] [address] [place], [address] Potassium [Moles/Vol] 2.9 mmol/L Low 3.3-5.1 [facility] Comment on above: Performed By: #### L 501.7400, L501.7300, L500.2500, L501.5500 ####[facility] [address] [place], [address] Sodium [Moles/Vol] 138 mmol/L Normal 133-145 [facility] Comment on above: Performed By: #### L 501.7400, L501.7300, L500.2500, L501.5500 ####[facility] [address] [place], [address] Urea nitrogen [Mass/Vol] 14 mg/dL Normal 4-19 [facility] Comment on above: Performed By: #### L 501.7400, L501.7300, L500.2500, L501.5500 ####[facility] [address] [place], [address] Carbon dioxide, total [Moles /volume] in Central venous bloodOrdered By: Gagan Schulte on 02-26-2025 CO2 [Moles/Vol] 27.6 mmol/L 21.0-32.0 [facility] Chloride assayOrdered By: Cas Schulte on 02-26-2025 Chloride [Moles/Vol] 99 mmol/L 98-108 [facility] Glomerular filtration rate ( GFR) estimation/1.73 sq m using serum, plasma, or whole bOrdered By: Gagan Schulte on 02-26-2025 GFR/1.73 sq M.predicted among non-blacks MDRD (S/P/Bld) [Vol rate/Area] 84 mL/min/{1.73_m2} >60 [facility] Neurology Visit Reporton Neurology Visit Report Normal [facility] Osmolality urOrdered By: Feng Schulte on 02-26-2025 Osmolality (U) [Osmolality] 349 mOsm/KG >50 [facility] Osmolality, Serumon 02-27-20 25 OSMOLALITY,SER 295 mOsm/KG Normal 280-301 [facility] Comment on above: Performed By: #### L 501.7400, L501.7300, L500.2500, L501.5500 ####[facility] [address] [place], [address] Osmolality, Urineon 02-27-20 25 OSMOLALITY,UR 349 mOsm/KG Normal [facility] Comment on above: Result Comment: Norm al Urine Reference Ranges Random: 50 - 1200 mOsm/kg H20 depending on fluid intake Random: >850 mOsm/kg after 12 hour fluid restriction 24 hour: 300 - 900 mOsm/kg H2O Performed By: #### L 501.7400, L501.7300, L500.2500, L501.5500 ####[facility] [address] [place], [place], [id number] Potassium measurement (mass/ volume)Ordered By: Gagan Schulte on 02-26-2025 Potassium (Unsp spec) [Mass/Vol] 2.9 mmol/L Low 3.3-5.1 [facility] Serum creatinine measurement (mass/volume)Ordered By: Gagan Schulte on 02-26-2025 Creatinine [Mass/Vol] 0.72 mg/dL 0.70-1.20 [facility] Serum glucose measurement (m ass/volume)Ordered By: Gagan Schulte on 02-26-2025 Glucose [Mass/Vol] 121 mg/dL High 70-99 [facility] Serum or plasma calcium ena urement (mass/volume)Ordered By: Gagan Schulte on 02-26-2025 Calcium [Mass/Vol] 9.1 mg/dL 7.6-11.0 [facility] Serum or plasma urea nitroge n measurement (mass/volume)Ordered By: Gagan Scuhlte on 02-26-2025 Urea nitrogen [Mass/Vol] 14 mg/dL 4-19 [facility] Sodium levelOrdered By: Brandan Schulte on 02-26-2025 Sodium [Moles/Vol] 138 mmol/L 133-145 [facility] Urine sodium measurement (mo les/volume)Ordered By: Gagan Schulte on 02-26-2025 Sodium (U) [Moles/Vol] 146 mmol/L Not Establ. [facility] Office Visit Reporton 2024 Office Visit Report Normal [facility] Cardiology Visit Reporton Cardiology Visit Report Normal [facility] Absolute lymphocyte countOrd ered By: Celeste Jacobo on 01-14-2025 Lymphocytes Auto (Unsp spec) [#/Vol] 0.60 10*3/uL Low 0.83-4.51 [facility] Anion gap in Serum or Plasma Ordered By: Celeste Jacobo on 01-14-2025 Anion gap [Moles/Vol] 8 mmol/L 5-15 [facility] Automated lymphocyte count a s percentage of total leukocytesOrdered By: Celeste Jacobo on 01-14-2025 Lymphocytes/100 WBC Auto (Unsp spec) 10.8 % Low 19-41 [facility] BUN/creatinine ratioOrdered By: Celeste Jacobo on 01-14-2025 Urea nitrogen/Creatinine [Mass ratio] 37.3 mg/mg High 10-20 [facility] Basophil percentageOrdered B y: Celeste Jacobo on 01-14-2025 Basophils/100 WBC (Bld) 0.5 % 0-1 [facility] Carbon dioxide, total [Moles /volume] in Central venous bloodOrdered By: Celeste Jacobo on 01-14-2025 CO2 [Moles/Vol] 23.8 mmol/L 21.0-32.0 [facility] Chloride assayOrdered By: Aki Jacobo on 01-14-2025 Chloride [Moles/Vol] 99 mmol/L 98-108 [facility] Eosinophil percentageOrdered By: Celeste Jacobo on 01-14-2025 Eosinophils/100 WBC (Bld) 0.4 % 0-5 [facility] Erythrocyte distribution wid th ratioOrdered By: Celeste Jacobo on 01-14-2025 Erythrocyte distribution width (RBC) [Ratio] 13.1 % 11.6-14.6 [facility] Erythrocyte distribution wid th standard deviationOrdered By: Celeste Jacobo on 01-14-2025 Erythrocyte distribution width (RBC) [Ratio] 44.3 fl High 35.1-43.9 [facility] Glomerular filtration rate ( GFR) estimation/1.73 sq m using serum, plasma, or whole bOrdered By: Celeste Jacobo on 01-14-2025 GFR/1.73 sq M.predicted among non-blacks MDRD (S/P/Bld) [Vol rate/Area] 92 mL/min/{1.73_m2} >60 [facility] Hematocrit Auto (Bld) [Volum e fraction]Ordered By: [facility] on 01-14-2025 Hematocrit (Bld) [Volume fraction] 30.6 % Low 37-47 [facility] Hemoglobin measurementOrdere d By: kal Jacobo on 01-14-2025 Hemoglobin (Bld) [Mass/Vol] 10.9 g/dL Low 12.0-15.0 [facility] Immature granulocytes/100 WB C Auto (Bld)Ordered By: Celeste Jacobo on 01-14-2025 Immature granulocytes/100 WBC (Bld) 0.500 % 0.0-0.9 [facility] MCV (mean corpuscular volume ) determinationOrdered By: Celeste Jacobo on 01-14-2025 MCV (RBC) [Entitic vol] 92.4 fL 81-99 [facility] Mean corpuscular hemoglobin (MCH) determinationOrdered By: chachaaltonaclarissa Jacobo on 01-14-2025 MCH (RBC) [Entitic mass] 32.9 pg High 27.0-32.0 [facility] Monocyte percentageOrdered B y: kal Jacobo on 01-14-2025 Monocytes/100 WBC (Bld) 12.6 % High 0-10 [facility] Neutrophil percentageOrdered By: [facility] on 01-14-2025 Neutrophils/100 WBC (Bld) 75.2 % High 47-70 [facility] Platelet countOrdered By: [facility] on 01-14-2025 Platelets (Bld) [#/Vol] 232 10*3/uL 150-450 [facility] Potassium measurement (mass/ volume)Ordered By: Celeste Jacobo on 01-14-2025 Potassium (Unsp spec) [Mass/Vol] 3.8 mmol/L 3.3-5.1 [facility] RBC Auto (Bld) [#/Vol]Ordere d By: Celeste Jacobo on 01-14-2025 RBC (Bld) [#/Vol] 3.31 10*6/uL Low 4.2-5.4 [facility] Serum creatinine measurement (mass/volume)Ordered By: Celeste Jacobo on 01-14-2025 Creatinine [Mass/Vol] 0.56 mg/dL Low 0.70-1.20 [facility] Serum glucose measurement (m ass/volume)Ordered By: Celeste Jacobo on 01-14-2025 Glucose [Mass/Vol] 91 mg/dL 70-99 [facility] Serum or plasma calcium ena urement (mass/volume)Ordered By: Celeste Jacobo on 01-14-2025 Calcium [Mass/Vol] 8.5 mg/dL 7.6-11.0 [facility] Serum or plasma urea nitroge n measurement (mass/volume)Ordered By: Celeste Jacobo on 01-14-2025 Urea nitrogen [Mass/Vol] 21 mg/dL High 4-19 [facility] Sodium levelOrdered By: Ronald Jacobo on 01-14-2025 Sodium [Moles/Vol] 131 mmol/L Low 133-145 [facility] White blood cell (WBC) count Ordered By: Celeste Jacobo on 01-14-2025 WBC (Bld) [#/Vol] 5.6 10*3/uL 4.4-11.0 [facility] Absolute lymphocyte countOrd ered By: Celeste Jacobo on 01-07-2025 Lymphocytes Auto (Unsp spec) [#/Vol] 0.75 10*3/uL Low 0.83-4.51 [facility] Anion gap in Serum or Plasma Ordered By: Celeste Jacobo on 01-07-2025 Anion gap [Moles/Vol] 11 mmol/L 5-15 [facility] Automated lymphocyte count a s percentage of total leukocytesOrdered By: Celeste Jacobo on 01-07-2025 Lymphocytes/100 WBC Auto (Unsp spec) 11.7 % Low 19-41 [facility] BUN/creatinine ratioOrdered By: Celeste Jacobo on 01-07-2025 Urea nitrogen/Creatinine [Mass ratio] 26.0 mg/mg High 10-20 [facility] Basophil percentageOrdered B y: Celeste Jacobo on 01-07-2025 Basophils/100 WBC (Bld) 0.3 % 0-1 [facility] Carbon dioxide, total [Moles /volume] in Central venous bloodOrdered By: Celeste Jacobo on 01-07-2025 CO2 [Moles/Vol] 23.5 mmol/L 21.0-32.0 [facility] Chloride assayOrdered By: Aki Jacobo on 01-07-2025 Chloride [Moles/Vol] 98 mmol/L 98-108 [facility] Eosinophil percentageOrdered By: Celeste Jacobo on 01-07-2025 Eosinophils/100 WBC (Bld) 0.5 % 0-5 [facility] Erythrocyte distribution wid th ratioOrdered By: Celeste Jacobo on 01-07-2025 Erythrocyte distribution width (RBC) [Ratio] 13.3 % 11.6-14.6 [facility] Erythrocyte distribution wid th standard deviationOrdered By: Celeste Jacobo on 01-07-2025 Erythrocyte distribution width (RBC) [Ratio] 45.1 fl High 35.1-43.9 [facility] Glomerular filtration rate ( GFR) estimation/1.73 sq m using serum, plasma, or whole bOrdered By: Celeste Jacobo on 01-07-2025 GFR/1.73 sq M.predicted among non-blacks MDRD (S/P/Bld) [Vol rate/Area] 89 mL/min/{1.73_m2} >60 [facility] Hematocrit Auto (Bld) [Volum e fraction]Ordered By: Celeste Jacobo on 01-07-2025 Hematocrit (Bld) [Volume fraction] 34.0 % Low 37-47 [facility] Hemoglobin measurementOrdere d By: Celeste Jacobo on 01-07-2025 Hemoglobin (Bld) [Mass/Vol] 11.7 g/dL Low 12.0-15.0 [facility] Immature granulocytes/100 WB C Auto (Bld)Ordered By: Celeste Jacobo on 01-07-2025 Immature granulocytes/100 WBC (Bld) 0.800 % 0.0-0.9 [facility] MCV (mean corpuscular volume ) determinationOrdered By: Celeste Jacobo on 01-07-2025 MCV (RBC) [Entitic vol] 91.6 fL 81-99 [facility] Mean corpuscular hemoglobin (MCH) determinationOrdered By: Celeste Jacobo on 01-07-2025 MCH (RBC) [Entitic mass] 31.5 pg 27.0-32.0 [facility] Monocyte percentageOrdered B y: Celeste Jacobo on 01-07-2025 Monocytes/100 WBC (Bld) 10.7 % High 0-10 [facility] Neutrophil percentageOrdered By: Celeste Jacobo on 01-07-2025 Neutrophils/100 WBC (Bld) 76.0 % High 47-70 [facility] Platelet countOrdered By: Aki chachajohn Jacobo on 01-07-2025 Platelets (Bld) [#/Vol] 250 10*3/uL 150-450 [facility] Potassium measurement (mass/ volume)Ordered By: Celeste Jacobo on 01-07-2025 Potassium (Unsp spec) [Mass/Vol] 3.8 mmol/L 3.3-5.1 [facility] RBC Auto (Bld) [#/Vol]Ordere d By: Celeste Jacobo on 01-07-2025 RBC (Bld) [#/Vol] 3.71 10*6/uL Low 4.2-5.4 [facility] Serum creatinine measurement (mass/volume)Ordered By: Celeste Jacobo on 01-07-2025 Creatinine [Mass/Vol] 0.62 mg/dL Low 0.70-1.20 [facility] Serum glucose measurement (m ass/volume)Ordered By: Celeste Jacobo on 01-07-2025 Glucose [Mass/Vol] 91 mg/dL 70-99 [facility] Serum or plasma calcium ena urement (mass/volume)Ordered By: Celeste Jacobo on 01-07-2025 Calcium [Mass/Vol] 8.7 mg/dL 7.6-11.0 [facility] Serum or plasma urea nitroge n measurement (mass/volume)Ordered By: Celeste Jacobo on 01-07-2025 Urea nitrogen [Mass/Vol] 16 mg/dL 4-19 [facility] Sodium levelOrdered By: Ronald lopez Donnell on 01-07-2025 Sodium [Moles/Vol] 132 mmol/L Low 133-145 [facility] White blood cell (WBC) count Ordered By: Celeste Jacobo on 01-07-2025 WBC (Bld) [#/Vol] 6.4 10*3/uL 4.4-11.0 [facility] Absolute lymphocyte countOrd ered By: Celeste Jacobo on 12-31-2024 Lymphocytes Auto (Unsp spec) [#/Vol] 0.52 10*3/uL Low 0.83-4.51 [facility] Anion gap in Serum or Plasma Ordered By: Celeste Jacobo on 12-31-2024 Anion gap [Moles/Vol] 9 mmol/L 5-15 [facility] Automated lymphocyte count a s percentage of total leukocytesOrdered By: Celeste Jacobo on 12-31-2024 Lymphocytes/100 WBC Auto (Unsp spec) 10.3 % Low 19-41 [facility] BUN/creatinine ratioOrdered By: Celeste Jacobo on 12-31-2024 Urea nitrogen/Creatinine [Mass ratio] 37.7 mg/mg High 10-20 [facility] Basophil percentageOrdered B y: Celeste Jacobo on 12-31-2024 Basophils/100 WBC (Bld) 0.4 % 0-1 [facility] Carbon dioxide, total [Moles /volume] in Central venous bloodOrdered By: Celeste Jacobo on 12-31-2024 CO2 [Moles/Vol] 24.2 mmol/L 21.0-32.0 [facility] Chloride assayOrdered By: Aki Jacobo on 12-31-2024 Chloride [Moles/Vol] 100 mmol/L 98-108 [facility] Eosinophil percentageOrdered By: Celeste Jacobo 12-31-2024 Eosinophils/100 WBC (Bld) 0.6 % 0-5 [facility] Erythrocyte distribution wid th ratioOrdered By: Celeste Jacobo on 12-31-2024 Erythrocyte distribution width (RBC) [Ratio] 13.4 % 11.6-14.6 [facility] Erythrocyte distribution wid th standard deviationOrdered By: Celeste Jacobo on 12-31-2024 Erythrocyte distribution width (RBC) [Ratio] 45.3 fl High 35.1-43.9 [facility] Glomerular filtration rate ( GFR) estimation/1.73 sq m using serum, plasma, or whole bOrdered By: Celeste Jacobo on 12-31-2024 GFR/1.73 sq M.predicted among non-blacks MDRD (S/P/Bld) [Vol rate/Area] 93 mL/min/{1.73_m2} >60 [facility] Hematocrit Auto (Bld) [Volum e fraction]Ordered By: Celeste Jacobo 12-31-2024 Hematocrit (Bld) [Volume fraction] 29.0 % Low 37-47 [facility] Hemoglobin measurementOrdere d By: Celeste Jacobo 12-31-2024 Hemoglobin (Bld) [Mass/Vol] 10.1 g/dL Low 12.0-15.0 [facility] Immature granulocytes/100 WB C Auto (Bld)Ordered By: Celeste Jacobo on 12-31-2024 Immature granulocytes/100 WBC (Bld) 0.400 % 0.0-0.9 [facility] LevetiracetamOrdered By: Yonatan Jacobo 12-31-2024 levETIRAcetam [Mass/Vol] 22.7 ug/mL 10.0-40.0 [facility] MCV (mean corpuscular volume ) determinationOrdered By: Celeste Jacobo 5 MCV (RBC) [Entitic vol] 92.4 fL 81-99 [facility] Mean corpuscular hemoglobin (MCH) determinationOrdered By: Celeste Jacobo on 12-31-2024 MCH (RBC) [Entitic mass] 32.2 pg High 27.0-32.0 [facility] Monocyte percentageOrdered B y: Celeste Jacobo on 12-31-2024 Monocytes/100 WBC (Bld) 10.5 % High 0-10 [facility] Neutrophil percentageOrdered By: Celeste Jacobo on 12-31-2024 Neutrophils/100 WBC (Bld) 77.8 % High 47-70 [facility] Platelet countOrdered By: Aki Jacobo on 12-31-2024 Platelets (Bld) [#/Vol] 193 10*3/uL 150-450 [facility] Potassium measurement (mass/ volume)Ordered By: Celeste Jacobo on 12-31-2024 Potassium (Unsp spec) [Mass/Vol] 3.5 mmol/L 3.3-5.1 [facility] RBC Auto (Bld) [#/Vol]Ordere d By: Celeste Jacobo on 12-31-2024 RBC (Bld) [#/Vol] 3.14 10*6/uL Low 4.2-5.4 [facility] Serum creatinine measurement (mass/volume)Ordered By: Celeste Jacobo on 12-31-2024 Creatinine [Mass/Vol] 0.52 mg/dL Low 0.70-1.20 [facility] Serum glucose measurement (m ass/volume)Ordered By: Celeste Jacobo on 12-31-2024 Glucose [Mass/Vol] 92 mg/dL 70-99 [facility] Serum or plasma calcium ena urement (mass/volume)Ordered By: Celeste Jacobo on 12-31-2024 Calcium [Mass/Vol] 8.3 mg/dL 7.6-11.0 [facility] Serum or plasma urea nitroge n measurement (mass/volume)Ordered By: Celeste Jacobo on 12-31-2024 Urea nitrogen [Mass/Vol] 20 mg/dL High 4-19 [facility] Sodium levelOrdered By: Ronald Jacobo on 12-31-2024 Sodium [Moles/Vol] 133 mmol/L 133-145 [facility] White blood cell (WBC) count Ordered By: Celeste Jacobo on 12-31-2024 WBC (Bld) [#/Vol] 5.1 10*3/uL 4.4-11.0 [facility] Folates, RBCon 12-26-2024 Fol.,Hemolysate > 620.0 Normal Not Estab. [facility] Comment on above: Order Comment: Test( s) 369903-Tdq. B1, Whole Bloodwas developed and its performance characteristicsdetermined by [employer]. It has not been cleared or approvedby the Food and Drug Administration. Performed By: #### L 3100.1725, L503.0106, L3300.8000, L3300.0960, L503.5510, L501.5200, L3310.0000, L500.4050, L3130.0010, L100.0500, L501.9520 ####[facility] [address] [place], [place], [phone]([phone] Folate, RBC > 1797 Normal >498 [facility] Comment on above: Order Comment: Test( s) 832186-Yve. B1, Whole Bloodwas developed and its performance characteristicsdetermined by [employer]. It has not been cleared or approvedby the Food and Drug Administration. Performed By: #### L 3100.1725, L503.0106, L3300.8000, L3300.0960, L503.5510, L501.5200, L3310.0000, L500.4050, L3130.0010, L100.0500, L501.9520 ####[facility] [address] [place], [address] Hematocrit (Bld) [Volume fraction] 34.5 % Normal 34.0-46.6 [facility] Comment on above: Order Comment: Test( s) 251181-Yud. B1, Whole Bloodwas developed and its performance characteristicsdetermined by [employer]. It has not been cleared or approvedby the Food and Drug Administration. Performed By: #### L 3100.1725, L503.0106, L3300.8000, L3300.0960, L503.5510, L501.5200, L3310.0000, L500.4050, L3130.0010, L100.0500, L501.9520 ####[facility] [address] [place], [place], [id number] KEPPRA (LEVETIRACETAM)on KEPPRA 43.5 ug/mL Abnormal 10.0-40.0 [facility] Comment on above: Order Comment: Test( s) 867134-Bed. B1, Whole Bloodwas developed and its performance characteristicsdetermined by [employer]. It has not been cleared or approvedby the Food and Drug Administration. Result Comment: Perf ormed at: [facility] [employer] [id number] Director: Ivan Valdes PhD, Phone: [phone] at: [facility] [employer] [id number] Director: Carli Dos Santos MD, Phone: [phone] Performed By: #### L 3100.1725, L503.0106, L3300.8000, L3300.0960, L503.5510, L501.5200, L3310.0000, L500.4050, L3130.0010, L100.0500, L501.9520 ####[facility] [address] [place], [address] Chocowinity Lambda Light Chainson 12-26-2024 FR KAPPA LT CHN 13.4 mg/L Normal 3.3-19.4 [facility] Comment on above: Order Comment: Test( s) 302167-Evw. B1, Whole Bloodwas developed and its performance characteristicsdetermined by [employer]. It has not been cleared or approvedby the Food and Drug Administration. Performed By: #### L 3100.1725, L503.0106, L3300.8000, L3300.0960, L503.5510, L501.5200, L3310.0000, L500.4050, L3130.0010, L100.0500, L501.9520 ####[facility] [address] [place], [address] FR LAMBDA LT CH 13.3 mg/L Normal 5.7-26.3 [facility] Comment on above: Order Comment: Test( s) 988888-Vjq. B1, Whole Bloodwas developed and its performance characteristicsdetermined by [employer]. It has not been cleared or approvedby the Food and Drug Administration. Performed By: #### L 3100.1725, L503.0106, L3300.8000, L3300.0960, L503.5510, L501.5200, L3310.0000, L500.4050, L3130.0010, L100.0500, L501.9520 ####[facility] [address] [place], [address] KAPPA/LAMBDA % 1.01 Normal 0.26-1.65 [facility] Comment on above: Order Comment: Test( s) 762655-Pdm. B1, Whole Bloodwas developed and its performance characteristicsdetermined by [employer]. It has not been cleared or approvedby the Food and Drug Administration. Performed By: #### L 3100.1725, L503.0106, L3300.8000, L3300.0960, L503.5510, L501.5200, L3310.0000, L500.4050, L3130.0010, L100.0500, L501.9520 ####[facility] [address] [place], [address] Vitamin B1, Thiamineon 12-26 VIT B1 THIAMINE 146.9 nmol/L Normal 66.5-200.0 [facility] Comment on above: Order Comment: Test( s) 589983-Zzu. B1, Whole Bloodwas developed and its performance characteristicsdetermined by [employer]. It has not been cleared or approvedby the Food and Drug Administration. Performed By: #### L 3100.1725, L503.0106, L3300.8000, L3300.0960, L503.5510, L501.5200, L3310.0000, L500.4050, L3130.0010, L100.0500, L501.9520 ####[facility] [address] [place], [place], [phone] Vitamin D 1,25-Dihydroxyon 0 12-25-2024 VIT D 1,25 DIHY 42.2 pg/mL Normal 24.8-81.5 [facility] Comment on above: Result Comment: Perf ormed at: [facility] [address] [id number] Director: Carli Dos Santos MD, Phone: [phone] Performed By: #### L 3100.1725, L503.0106, L3300.8000, L3300.0960, L503.5510, L501.5200, L3310.0000, L500.4050, L3130.0010, L100.0500, L501.9520 ####[facility] [address] [place], [place], [phone] Absolute lymphocyte countOrd ered By: Celeste Jacobo on 12-24-2024 Lymphocytes Auto (Unsp spec) [#/Vol] 0.57 10*3/uL Low 0.83-4.51 [facility] Anion gap in Serum or Plasma Ordered By: Celeste Jacobo on 12-24-2024 Anion gap [Moles/Vol] 9 mmol/L 5-15 [facility] Automated lymphocyte count a s percentage of total leukocytesOrdered By: Celeste Jacobo on 12-24-2024 Lymphocytes/100 WBC Auto (Unsp spec) 10.4 % Low 19-41 [facility] BUN/creatinine ratioOrdered By: Celeste Jacobo on 12-24-2024 Urea nitrogen/Creatinine [Mass ratio] 30.7 mg/mg High 10-20 [facility] Basophil percentageOrdered B y: Celeste Jacobo on 12-24-2024 Basophils/100 WBC (Bld) 0.5 % 0-1 [facility] Bilirubin directOrdered By: Celeste Jacobo on 12-24-2024 Bilirubin.direct [Mass/Vol] 0.24 mg/dL 0.00-0.30 [facility] Bilirubin, totalOrdered By: Celeste Jacobo on 12-24-2024 Bilirubin [Mass/Vol] 0.65 mg/dL 0.00-1.30 [facility] Carbon dioxide, total [Moles /volume] in Central venous bloodOrdered By: Celeste Jacobo on 12-24-2024 CO2 [Moles/Vol] 22.3 mmol/L 21.0-32.0 [facility] Chloride assayOrdered By: Aki Jacobo on 12-24-2024 Chloride [Moles/Vol] 99 mmol/L 98-108 [facility] Eosinophil percentageOrdered By: Celeste Jacobo on 12-24-2024 Eosinophils/100 WBC (Bld) 0.7 % 0-5 [facility] Erythrocyte distribution wid th ratioOrdered By: Celeste Jacobo on 12-24-2024 Erythrocyte distribution width (RBC) [Ratio] 13.2 % 11.6-14.6 [facility] Erythrocyte distribution wid th standard deviationOrdered By: Celeste Jacobo on 12-24-2024 Erythrocyte distribution width (RBC) [Ratio] 45.6 fl High 35.1-43.9 [facility] Glomerular filtration rate ( GFR) estimation/1.73 sq m using serum, plasma, or whole bOrdered By: Celeste Jacobo on 12-24-2024 GFR/1.73 sq M.predicted among non-blacks MDRD (S/P/Bld) [Vol rate/Area] 89 mL/min/{1.73_m2} >60 [facility] Hematocrit Auto (Bld) [Volum e fraction]Ordered By: Celeste Jacobo on 12-24-2024 Hematocrit (Bld) [Volume fraction] 28.1 % Low 37-47 [facility] Hemoglobin measurementOrdere d By: Celeste Jacobo on 12-24-2024 Hemoglobin (Bld) [Mass/Vol] 9.7 g/dL Low 12.0-15.0 [facility] Immature granulocytes/100 WB C Auto (Bld)Ordered By: Celeste Jacobo on 12-24-2024 Immature granulocytes/100 WBC (Bld) 0.500 % 0.0-0.9 [facility] MCV (mean corpuscular volume ) determinationOrdered By: Celeste Jacobo on 12-24-2024 MCV (RBC) [Entitic vol] 93.7 fL 81-99 [facility] Mean corpuscular hemoglobin (MCH) determinationOrdered By: Celeste Jacobo on 12-24-2024 MCH (RBC) [Entitic mass] 32.3 pg High 27.0-32.0 [facility] Monocyte percentageOrdered B y: Celeste Jacobo on 12-24-2024 Monocytes/100 WBC (Bld) 8.4 % 0-10 [facility] Neutrophil percentageOrdered By: kal Jacobo on 12-24-2024 Neutrophils/100 WBC (Bld) 79.5 % High 47-70 [facility] No Panel InformationOrdered By: Celeste Jacobo on 12-24-2024 58 U/L High <32 [facility] Platelet countOrdered By: Aki Jacobo on 12-24-2024 Platelets (Bld) [#/Vol] 193 10*3/uL 150-450 [facility] Potassium measurement (mass/ volume)Ordered By: Celeste Jacobo on 12-24-2024 Potassium (Unsp spec) [Mass/Vol] 3.6 mmol/L 3.3-5.1 [facility] RBC Auto (Bld) [#/Vol]Ordere d By: Celeste Jacobo on 12-24-2024 RBC (Bld) [#/Vol] 3.00 10*6/uL Low 4.2-5.4 [facility] Serum creatinine measurement (mass/volume)Ordered By: Celeste Jacobo on 12-24-2024 Creatinine [Mass/Vol] 0.64 mg/dL Low 0.70-1.20 [facility] Serum globulin measurementOr dered By: Celeste Jacobo on 12-24-2024 Globulin (S) [Mass/Vol] 1.9 g/dL Low 2.2-4.2 [facility] Serum glucose measurement (m ass/volume)Ordered By: Celeste Jacobo on 12-24-2024 Glucose [Mass/Vol] 84 mg/dL 70-99 [facility] Serum or plasma alanine oliver otransferase (ALT) measurementOrdered By: Celeste Jacobo on 12-24-2024 ALT [Catalytic activity/Vol] 108 U/L High <35 [facility] Serum or plasma albumin ena urement (mass/volume)Ordered By: Celeste Jacobo on 12-24-2024 Albumin [Mass/Vol] 3.2 g/dL Low 3.4-4.8 [facility] Serum or plasma alkaline brenna sphatase measurementOrdered By: Celeste Jacobo on 12-24-2024 ALP [Catalytic activity/Vol] 85 U/L 35-104 [facility] Serum or plasma calcium ena urement (mass/volume)Ordered By: Celeste Jacobo on 12-24-2024 Calcium [Mass/Vol] 8.5 mg/dL 7.6-11.0 [facility] Serum or plasma urea nitroge n measurement (mass/volume)Ordered By: Celeste Jacobo on 12-24-2024 Urea nitrogen [Mass/Vol] 20 mg/dL High 4-19 [facility] Sodium levelOrdered By: Ronald Jacobo on 12-24-2024 Sodium [Moles/Vol] 131 mmol/L Low 133-145 [facility] Total proteinOrdered By: Yonatan Jacobo on 12-24-2024 Protein [Mass/Vol] 5.0 g/dL Low 5.9-8.4 [facility] White blood cell (WBC) count Ordered By: Celeste Jacobo on 12-24-2024 WBC (Bld) [#/Vol] 5.5 10*3/uL 4.4-11.0 [facility] Ammoniaon 12-20-2024 Ammonia (P) [Moles/Vol] 23.1 umol/L Normal 11-51 [facility] Comment on above: Performed By: #### L 3100.1725, L503.0106, L3300.8000, L3300.0960, L503.5510, L501.5200, L3310.0000, L500.4050, L3130.0010, L100.0500, L501.9520 ####[facility] [address] [place], [place], [id number] Anion gap in Serum or Plasma Ordered By: Odilon Melchor on 12-20-2024 Anion gap [Moles/Vol] 10 mmol/L 5-15 [facility] BUN/creatinine ratioOrdered By: Odilon Melchor on 12-20-2024 Urea nitrogen/Creatinine [Mass ratio] 35.3 mg/mg High 10-20 [facility] Bilirubin, totalOrdered By: Odilon Melchor on 12-20-2024 Bilirubin [Mass/Vol] 0.62 mg/dL 0.00-1.30 [facility] CBC-Complete Blood Cnt No Di ffon 12-20-2024 Erythrocyte distribution width (RBC) [Ratio] 13.5 % Normal 11.6-14.6 [facility] Comment on above: Performed By: #### L 3100.1725, L503.0106, L3300.8000, L3300.0960, L503.5510, L501.5200, L3310.0000, L500.4050, L3130.0010, L100.0500, L501.9520 ####[facility] [address] [place], [address] Hematocrit (Bld) [Volume fraction] 32.7 % Low 37-47 [facility] Comment on above: Performed By: #### L 3100.1725, L503.0106, L3300.8000, L3300.0960, L503.5510, L501.5200, L3310.0000, L500.4050, L3130.0010, L100.0500, L501.9520 ####[facility] [address] [place], [address] Hemoglobin (Bld) [Mass/Vol] 11.4 g/dL Low 12.0-15.0 [facility] Comment on above: Performed By: #### L 3100.1725, L503.0106, L3300.8000, L3300.0960, L503.5510, L501.5200, L3310.0000, L500.4050, L3130.0010, L100.0500, L501.9520 ####[facility] [address] [place], [address] MCH (RBC) [Entitic mass] 32.3 pg High 27.0-32.0 [facility] Comment on above: Performed By: #### L 3100.1725, L503.0106, L3300.8000, L3300.0960, L503.5510, L501.5200, L3310.0000, L500.4050, L3130.0010, L100.0500, L501.9520 ####[facility] [address] [place], [address] MCHC (RBC) [Mass/Vol] 34.9 g/dL Normal 32-36 [facility] Comment on above: Performed By: #### L 3100.1725, L503.0106, L3300.8000, L3300.0960, L503.5510, L501.5200, L3310.0000, L500.4050, L3130.0010, L100.0500, L501.9520 ####[facility] [address] [place], [address] MCV (RBC) [Entitic vol] 92.6 fL Normal 81-99 [facility] Comment on above: Performed By: #### L 3100.1725, L503.0106, L3300.8000, L3300.0960, L503.5510, L501.5200, L3310.0000, L500.4050, L3130.0010, L100.0500, L501.9520 ####[facility] [address] [place], [address] Platelet mean volume (Bld) [Entitic vol] 10.7 fL Normal 6.2-12.0 [facility] Comment on above: Performed By: #### L 3100.1725, L503.0106, L3300.8000, L3300.0960, L503.5510, L501.5200, L3310.0000, L500.4050, L3130.0010, L100.0500, L501.9520 ####[facility] [address] [place], [address] Platelets (Bld) [#/Vol] 259 10*3/uL Normal 150-450 [facility] Comment on above: Performed By: #### L 3100.1725, L503.0106, L3300.8000, L3300.0960, L503.5510, L501.5200, L3310.0000, L500.4050, L3130.0010, L100.0500, L501.9520 ####[facility] [address] [place], [address] RBC (Bld) [#/Vol] 3.53 10*6/uL Low 4.2-5.4 [facility] Comment on above: Performed By: #### L 3100.1725, L503.0106, L3300.8000, L3300.0960, L503.5510, L501.5200, L3310.0000, L500.4050, L3130.0010, L100.0500, L501.9520 ####[facility] [address] [place], [address] RDW SD 46.2 fl High 35.1-43.9 [facility] Comment on above: Performed By: #### L 3100.1725, L503.0106, L3300.8000, L3300.0960, L503.5510, L501.5200, L3310.0000, L500.4050, L3130.0010, L100.0500, L501.9520 ####[facility] [address] [place], [address] WBC (Bld) [#/Vol] 7.9 10*3/uL Normal 4.4-11.0 [facility] Comment on above: Performed By: #### L 3100.1725, L503.0106, L3300.8000, L3300.0960, L503.5510, L501.5200, L3310.0000, L500.4050, L3130.0010, L100.0500, L501.9520 ####[facility] [address] [place], [address] Carbon dioxide, total [Moles /volume] in Central venous bloodOrdered By: Odilon Melchor on 12-20-2024 CO2 [Moles/Vol] 24.6 mmol/L 21.0-32.0 [facility] Chloride assayOrdered By: Ra christ Melchor on 12-20-2024 Chloride [Moles/Vol] 97 mmol/L Low 98-108 [facility] Comprehensive Metabolic Prof ilon 12-20-2024 Albumin [Mass/Vol] 3.9 g/dL Normal 3.4-4.8 [facility] Comment on above: Performed By: #### L 3100.1725, L503.0106, L3300.8000, L3300.0960, L503.5510, L501.5200, L3310.0000, L500.4050, L3130.0010, L100.0500, L501.9520 ####[facility] [address] [place], [address] Albumin/Globulin [Mass ratio] 1.8 {ratio} Normal 0.9-2.4 [facility] Comment on above: Performed By: #### L 3100.1725, L503.0106, L3300.8000, L3300.0960, L503.5510, L501.5200, L3310.0000, L500.4050, L3130.0010, L100.0500, L501.9520 ####[facility] [address] [place], [place], [id number] ALK PHOS 110 U/L High 35-104 [facility] Comment on above: Performed By: #### L 3100.1725, L503.0106, L3300.8000, L3300.0960, L503.5510, L501.5200, L3310.0000, L500.4050, L3130.0010, L100.0500, L501.9520 ####[facility] [address] [place], [place], [id number] ALT [Catalytic activity/Vol] 145 U/L High <=34 [facility] Comment on above: Performed By: #### L 3100.1725, L503.0106, L3300.8000, L3300.0960, L503.5510, L501.5200, L3310.0000, L500.4050, L3130.0010, L100.0500, L501.9520 ####[facility] [address] [place], [address] AST [Catalytic activity/Vol] 79 U/L High <=31 [facility] Comment on above: Performed By: #### L 3100.1725, L503.0106, L3300.8000, L3300.0960, L503.5510, L501.5200, L3310.0000, L500.4050, L3130.0010, L100.0500, L501.9520 ####[facility] [address] [place], [place], [id number] Bilirubin [Mass/Vol] 0.62 mg/dL Normal 0.00-1.30 [facility] Comment on above: Performed By: #### L 3100.1725, L503.0106, L3300.8000, L3300.0960, L503.5510, L501.5200, L3310.0000, L500.4050, L3130.0010, L100.0500, L501.9520 ####[facility] [address] [place], [address] BUN/CRE 35.3 RATIO High 10-20 [facility] Comment on above: Performed By: #### L 3100.1725, L503.0106, L3300.8000, L3300.0960, L503.5510, L501.5200, L3310.0000, L500.4050, L3130.0010, L100.0500, L501.9520 ####[facility] [address] [place], [place], [phone](512) Calcium [Mass/Vol] 9.3 mg/dL Normal 7.6-11.0 [facility] Comment on above: Performed By: #### L 3100.1725, L503.0106, L3300.8000, L3300.0960, L503.5510, L501.5200, L3310.0000, L500.4050, L3130.0010, L100.0500, L501.9520 ####[facility] [address] [place], [place], [phone](015) Chloride [Moles/Vol] 97 mmol/L Low 98-108 [facility] Comment on above: Performed By: #### L 3100.1725, L503.0106, L3300.8000, L3300.0960, L503.5510, L501.5200, L3310.0000, L500.4050, L3130.0010, L100.0500, L501.9520 ####[facility] [address] [place], [place], [phone](087) CO2 [Moles/Vol] 24.6 mmol/L Normal 21.0-32.0 [facility] Comment on above: Performed By: #### L 3100.1725, L503.0106, L3300.8000, L3300.0960, L503.5510, L501.5200, L3310.0000, L500.4050, L3130.0010, L100.0500, L501.9520 ####[facility] [address] [place], [address] Creatinine [Mass/Vol] 0.65 mg/dL Low 0.70-1.20 [facility] Comment on above: Performed By: #### L 3100.1725, L503.0106, L3300.8000, L3300.0960, L503.5510, L501.5200, L3310.0000, L500.4050, L3130.0010, L100.0500, L501.9520 ####[facility] [address] [place], [address] GAP 10 Normal 5-15 [facility] Comment on above: Performed By: #### L 3100.1725, L503.0106, L3300.8000, L3300.0960, L503.5510, L501.5200, L3310.0000, L500.4050, L3130.0010, L100.0500, L501.9520 ####[facility] [address] [facility] [place], [address] GFR/1.73 sq M.predicted among non-blacks MDRD (S/P/Bld) [Vol rate/Area] 89 mL/min/{1.73_m2} Normal >60 [facility] Comment on above: Result Comment: mL/m in/1.73m2 CKD-EPI Creatinine Equation (2020) Performed By: #### L 3100.1725, L503.0106, L3300.8000, L3300.0960, L503.5510, L501.5200, L3310.0000, L500.4050, L3130.0010, L100.0500, L501.9520 ####[facility] [address] [place], [address] Globulin (S) [Mass/Vol] 2.2 g/dL Normal 2.2-4.2 [facility] Comment on above: Performed By: #### L 3100.1725, L503.0106, L3300.8000, L3300.0960, L503.5510, L501.5200, L3310.0000, L500.4050, L3130.0010, L100.0500, L501.9520 ####[facility] [address] [place], [address] Glucose [Mass/Vol] 143 mg/dL High 70-99 [facility] Comment on above: Performed By: #### L 3100.1725, L503.0106, L3300.8000, L3300.0960, L503.5510, L501.5200, L3310.0000, L500.4050, L3130.0010, L100.0500, L501.9520 ####[facility] [address] [place], [place], [phone](638) Potassium [Moles/Vol] 4.0 mmol/L Normal 3.3-5.1 [facility] Comment on above: Performed By: #### L 3100.1725, L503.0106, L3300.8000, L3300.0960, L503.5510, L501.5200, L3310.0000, L500.4050, L3130.0010, L100.0500, L501.9520 ####[facility] [address] [place], [address] Sodium [Moles/Vol] 131 mmol/L Low 133-145 [facility] Comment on above: Performed By: #### L 3100.1725, L503.0106, L3300.8000, L3300.0960, L503.5510, L501.5200, L3310.0000, L500.4050, L3130.0010, L100.0500, L501.9520 ####[facility] [address] [facility] [place], [address] T PROT 6.1 g/dL Normal 5.9-8.4 [facility] Comment on above: Performed By: #### L 3100.1725, L503.0106, L3300.8000, L3300.0960, L503.5510, L501.5200, L3310.0000, L500.4050, L3130.0010, L100.0500, L501.9520 ####[facility] [address] [place], [address] Urea nitrogen [Mass/Vol] 23 mg/dL High 4-19 [facility] Comment on above: Performed By: #### L 3100.1725, L503.0106, L3300.8000, L3300.0960, L503.5510, L501.5200, L3310.0000, L500.4050, L3130.0010, L100.0500, L501.9520 ####[facility] [address] [facility] [place], [address] Erythrocyte distribution wid th ratioOrdered By: Odilon Melchor on 12-20-2024 Erythrocyte distribution width (RBC) [Ratio] 13.5 % 11.6-14.6 [facility] Erythrocyte distribution wid th standard deviationOrdered By: [facility]ilon [facility]24 Erythrocyte distribution width (RBC) [Ratio] 46.2 fl High 35.1-43.9 [facility] Erythrocyte folate measureme nt with hematocritOrdered By: Odilon Melchor on 12-20-2024 Hematocrit (Bld) [Volume fraction] 34.5 % 34.0-46.6 [facility] Glomerular filtration rate ( GFR) estimation/1.73 sq m using serum, plasma, or whole bOrdered By: Odilon Melchor on 12-20-2024 GFR/1.73 sq M.predicted among non-blacks MDRD (S/P/Bld) [Vol rate/Area] 89 mL/min/{1.73_m2} >60 [facility] Hematocrit Auto (Bld) [Volum e fraction]Ordered By: Odilon Melchor on 12-20-2024 Hematocrit (Bld) [Volume fraction] 32.7 % Low 37-47 [facility] Hemoglobin measurementOrdere d By: Odilon Melchor on 12-20-2024 Hemoglobin (Bld) [Mass/Vol] 11.4 g/dL Low 12.0-15.0 [facility] LevetiracetamOrdered By: Sascha Melchor on 12-20-2024 levETIRAcetam [Mass/Vol] 43.5 ug/mL High 10.0-40.0 [facility] MCV (mean corpuscular volume ) determinationOrdered By: Odilon Melchor on 12-20-2024 MCV (RBC) [Entitic vol] 92.6 fL 81-99 [facility] Magnesiumon 12-20-2024 Magnesium [Mass/Vol] 1.9 mg/dL Normal 1.5-2.2 [facility] Comment on above: Performed By: #### L 3100.1725, L503.0106, L3300.8000, L3300.0960, L503.5510, L501.5200, L3310.0000, L500.4050, L3130.0010, L100.0500, L501.9520 ####[facility] [address] [place], [place], [id number] Magnesium measurement (mass/ volume)Ordered By: Odilon Melchor on 12-20-2024 Magnesium (Unsp spec) [Mass/Vol] 1.9 mg/dL 1.5-2.2 [facility] Mean corpuscular hemoglobin (MCH) determinationOrdered By: Odilon Melchor on 12-20-2024 MCH (RBC) [Entitic mass] 32.3 pg High 27.0-32.0 [facility] Neurology Visit Reporton Neurology Visit Report Normal [facility] No Panel InformationOrdered By: Odilon Melchor on 12-20-2024 79 U/L High <32 [facility] Platelet countOrdered By: Ra christ Melchor on 12-20-2024 Platelets (Bld) [#/Vol] 259 10*3/uL 150-450 [facility] Potassium measurement (mass/ volume)Ordered By: Odilon Melchor on 12-20-2024 Potassium (Unsp spec) [Mass/Vol] 4.0 mmol/L 3.3-5.1 [facility] RBC Auto (Bld) [#/Vol]Ordere d By: Odilon Melchor on 12-20-2024 RBC (Bld) [#/Vol] 3.53 10*6/uL Low 4.2-5.4 [facility] Serum creatinine measurement (mass/volume)Ordered By: Odilon Melchor on 12-20-2024 Creatinine [Mass/Vol] 0.65 mg/dL Low 0.70-1.20 [facility] Serum globulin measurementOr dered By: Odilon Melchor on 12-20-2024 Globulin (S) [Mass/Vol] 2.2 g/dL 2.2-4.2 [facility] Serum glucose measurement (m ass/volume)Ordered By: Odilon Melchor on 12-20-2024 Glucose [Mass/Vol] 143 mg/dL High 70-99 [facility] Serum immunoglobulin kappa l ight chains/immunoglobulin lambda light chains mass ratioOrdered By: Odilon Melchor 12-20-2024 Immunoglobulin light chains.kappa/Immunoglo bulin light chains.lambda (S) [Mass ratio] 1.01 0.26-1.65 [facility] Serum or plasma alanine oliver otransferase (ALT) measurementOrdered By: Odilon Melchor 12-20-2024 ALT [Catalytic activity/Vol] 145 U/L High <35 [facility] Serum or plasma albumin ena urement (mass/volume)Ordered By: Odilon Melchor 12-20-2024 Albumin [Mass/Vol] 3.9 g/dL 3.4-4.8 [facility] Serum or plasma albumin/glob ulin mass ratioOrdered By: Odilon Melchor 12-20-2024 Albumin/Globulin [Mass ratio] 1.8 {ratio} 0.9-2.4 [facility] Serum or plasma alkaline brenna sphatase measurementOrdered By: Odilon Melchor on 12-20-2024 ALP [Catalytic activity/Vol] 110 U/L High 35-104 [facility] Serum or plasma calcitriol m easurement (mass/volume)Ordered By: Odilon Melchor on 12-20-2024 1,25-dihydroxyvitamin D3 [Mass/Vol] 42.2 pg/mL 24.8-81.5 [facility] Serum or plasma calcium ena urement (mass/volume)Ordered By: Odilon Melchor on 12-20-2024 Calcium [Mass/Vol] 9.3 mg/dL 7.6-11.0 [facility] Serum or plasma immunoglobul in kappa light chains measurement (mass/volume)Ordered By: Odilon Melchor on 12-20-2024 Immunoglobulin light chains.kappa [Mass/Vol] 13.4 mg/L 3.3-19.4 [facility] Serum or plasma thiamine silvio surement (mass/volume)Ordered By: Odilon Melchor on 12-20-2024 Thiamine [Mass/Vol] 146.9 nmol/L 66.5-200.0 [facility] Serum or plasma urea nitroge n measurement (mass/volume)Ordered By: Odilon Melchor on 12-20-2024 Urea nitrogen [Mass/Vol] 23 mg/dL High 4-19 [facility] Sodium levelOrdered By: Jovanni Melchor on 12-20-2024 Sodium [Moles/Vol] 131 mmol/L Low 133-145 [facility] TSH DL <= 0.005 mIU/L QnOrde red By: Odilon Melchor on 12-20-2024 TSH Qn 2.720 uIU/mL 0.300-4.200 [facility] Thyroid Stim Hormone (TSH)on 12-20-2024 TSH 2.720 uIU/mL Normal 0.300-4.200 [facility] Comment on above: Performed By: #### L 3100.1725, L503.0106, L3300.8000, L3300.0960, L503.5510, L501.5200, L3310.0000, L500.4050, L3130.0010, L100.0500, L501.9520 ####[facility] [address] [place], [place], [id number] Total proteinOrdered By: Sascha Melchor on 12-20-2024 Protein [Mass/Vol] 6.1 g/dL 5.9-8.4 [facility] Urgent Care Visit Reporton 0 12-20-2024 Urgent Care Visit Report Normal [facility] Venous blood ammonia measure mentOrdered By: Odilon Melchor on 12-20-2024 Ammonia (P) [Moles/Vol] 23.1 umol/L [facility] Vitamin B12on 12-20-2024 Cobalamin (Vitamin B12) [Mass/Vol] 2740 pg/mL High 180-914 [facility] Comment on above: Performed By: #### L 3100.1725, L503.0106, L3300.8000, L3300.0960, L503.5510, L501.5200, L3310.0000, L500.4050, L3130.0010, L100.0500, L501.9520 ####[facility] [address] [place], [place], [id number] Vitamin B12 ser/plasOrdered By: Odilon Melchor on 12-20-2024 Cobalamin (Vitamin B12) [Mass/Vol] 2740 pg/mL High 180-914 [facility] White blood cell (WBC) count Ordered By: Odilon Melchor on 12-20-2024 WBC (Bld) [#/Vol] 7.9 10*3/uL 4.4-11.0 [facility] Absolute lymphocyte countOrd ered By: Celeste Jacobo on 12-17-2024 Lymphocytes Auto (Unsp spec) [#/Vol] 0.64 10*3/uL Low 0.83-4.51 [facility] Anion gap in Serum or Plasma Ordered By: Celeste Jacobo on 12-17-2024 Anion gap [Moles/Vol] 9 mmol/L 5-15 [facility] Automated lymphocyte count a s percentage of total leukocytesOrdered By: Celeste Jacobo on 12-17-2024 Lymphocytes/100 WBC Auto (Unsp spec) 7.9 % Low 19-41 [facility] BUN/creatinine ratioOrdered By: Celeste Jacobo on 12-17-2024 Urea nitrogen/Creatinine [Mass ratio] 36.1 mg/mg High 10-20 [facility] Basophil percentageOrdered B y: Celeste Jacobo on 12-17-2024 Basophils/100 WBC (Bld) 0.6 % 0-1 [facility] Carbon dioxide, total [Moles /volume] in Central venous bloodOrdered By: Celeste Jacobo on 12-17-2024 CO2 [Moles/Vol] 22.1 mmol/L 21.0-32.0 [facility] Chloride assayOrdered By: Aki Jacobo on 12-17-2024 Chloride [Moles/Vol] 101 mmol/L 98-108 [facility] Eosinophil percentageOrdered By: Celeste Jacobo on 12-17-2024 Eosinophils/100 WBC (Bld) 0.5 % 0-5 [facility] Erythrocyte distribution wid th ratioOrdered By: Celeste Jacobo on 12-17-2024 Erythrocyte distribution width (RBC) [Ratio] 13.2 % 11.6-14.6 [facility] Erythrocyte distribution wid th standard deviationOrdered By: Celeste Jacobo on 12-17-2024 Erythrocyte distribution width (RBC) [Ratio] 44.9 fl High 35.1-43.9 [facility] Glomerular filtration rate ( GFR) estimation/1.73 sq m using serum, plasma, or whole bOrdered By: Celeste Jacobo on 12-17-2024 GFR/1.73 sq M.predicted among non-blacks MDRD (S/P/Bld) [Vol rate/Area] 90 mL/min/{1.73_m2} >60 [facility] Hematocrit Auto (Bld) [Volum e fraction]Ordered By: Celeste Jacobo on 12-17-2024 Hematocrit (Bld) [Volume fraction] 28.1 % Low 37-47 [facility] Hemoglobin measurementOrdere d By: Celeste Jacobo on 12-17-2024 Hemoglobin (Bld) [Mass/Vol] 9.9 g/dL Low 12.0-15.0 [facility] Immature granulocytes/100 WB C Auto (Bld)Ordered By: Celeste Tobinnadeem on 12-17-2024 Immature granulocytes/100 WBC (Bld) 0.600 % 0.0-0.9 [facility] MCV (mean corpuscular volume ) determinationOrdered By: Celeste Tobinnadeem on 12-17-2024 MCV (RBC) [Entitic vol] 94.0 fL 81-99 [facility] Mean corpuscular hemoglobin (MCH) determinationOrdered By: Celeste Tobinnadeem on 12-17-2024 MCH (RBC) [Entitic mass] 33.1 pg High 27.0-32.0 [facility] Monocyte percentageOrdered B y: Celeste Jacobo on 12-17-2024 Monocytes/100 WBC (Bld) 9.2 % 0-10 [facility] Neutrophil percentageOrdered By: kal Jacobo on 12-17-2024 Neutrophils/100 WBC (Bld) 81.2 % High 47-70 [facility] Platelet countOrdered By: Aki Jacobo on 12-17-2024 Platelets (Bld) [#/Vol] 211 10*3/uL 150-450 [facility] Potassium measurement (mass/ volume)Ordered By: Celeste Christophermilindnadeem on 12-17-2024 Potassium (Unsp spec) [Mass/Vol] 3.9 mmol/L 3.3-5.1 [facility] RBC Auto (Bld) [#/Vol]Ordere d By: Celeste Jacobo on 12-17-2024 RBC (Bld) [#/Vol] 2.99 10*6/uL Low 4.2-5.4 [facility] Serum creatinine measurement (mass/volume)Ordered By: Shunclarissa Whitemilindnadeem on 12-17-2024 Creatinine [Mass/Vol] 0.59 mg/dL Low 0.70-1.20 [facility] Serum glucose measurement (m ass/volume)Ordered By: Celeste Jacobo on 12-17-2024 Glucose [Mass/Vol] 93 mg/dL 70-99 [facility] Serum or plasma calcium ena urement (mass/volume)Ordered By: Celeste Jacobo on 12-17-2024 Calcium [Mass/Vol] 8.3 mg/dL 7.6-11.0 [facility] Serum or plasma urea nitroge n measurement (mass/volume)Ordered By: Celeste Jacobo on 12-17-2024 Urea nitrogen [Mass/Vol] 21 mg/dL High 4-19 [facility] Sodium levelOrdered By: Ronald gardnermoises Donnell on 12-17-2024 Sodium [Moles/Vol] 131 mmol/L Low 133-145 [facility] White blood cell (WBC) count Ordered By: Celeste Jacobo on 12-17-2024 WBC (Bld) [#/Vol] 8.1 10*3/uL 4.4-11.0 [facility] Cardiology Visit Reporton Cardiology Visit Report Normal [facility] Absolute lymphocyte countOrd ered By: Celeste Jacobo on 12-10-2024 Lymphocytes Auto (Unsp spec) [#/Vol] 0.52 10*3/uL Low 0.83-4.51 [facility] Absolute neutrophil countOrd ered By: Celeste Jcaobo on 12-10-2024 Neutrophils (Bld) [#/Vol] 7.3 10*3/uL 2.0-7.7 [facility] Anion gap in Serum or Plasma Ordered By: Celeste Jacobo on 12-10-2024 Anion gap [Moles/Vol] 10 mmol/L 5-15 [facility] Automated lymphocyte count a s percentage of total leukocytesOrdered By: Celeste Jacobo on 12-10-2024 Lymphocytes/100 WBC Auto (Unsp spec) 6.1 % Low 19-41 [facility] BUN/creatinine ratioOrdered By: Celeste Jacobo on 12-10-2024 Urea nitrogen/Creatinine [Mass ratio] 30.6 mg/mg High 10-20 [facility] Basophil percentageOrdered B y: Celeste Jacobo on 12-10-2024 Basophils/100 WBC (Bld) 0.2 % 0-1 [facility] Bilirubin, totalOrdered By: Celeste Christopherkayy on 12-10-2024 Bilirubin [Mass/Vol] 0.70 mg/dL 0.00-1.30 [facility] Carbon dioxide, total [Moles /volume] in Central venous bloodOrdered By: Akichachakalyanclarissa Whitemilindnadeem on 12-10-2024 CO2 [Moles/Vol] 21.7 mmol/L 21.0-32.0 [facility] Chloride assayOrdered By: Aki kal Christophermilindnadeem on 12-10-2024 Chloride [Moles/Vol] 99 mmol/L 98-108 [facility] Eosinophil percentageOrdered By: Celeste Christopherkayy on 12-10-2024 Eosinophils/100 WBC (Bld) 0.1 % 0-5 [facility] Erythrocyte distribution wid th ratioOrdered By: Celeste Christophermilindnadeem on 12-10-2024 Erythrocyte distribution width (RBC) [Ratio] 13.2 % 11.6-14.6 [facility] Erythrocyte distribution wid th standard deviationOrdered By: chachaaltonaclarissa Christophermilindnadeem on 12-10-2024 Erythrocyte distribution width (RBC) [Ratio] 44.8 fl High 35.1-43.9 [facility] Glomerular filtration rate ( GFR) estimation/1.73 sq m using serum, plasma, or whole bOrdered By: Akichachakalyanclarissa Whitemilindnadeem on 12-10-2024 GFR/1.73 sq M.predicted among non-blacks MDRD (S/P/Bld) [Vol rate/Area] 86 mL/min/{1.73_m2} >60 [facility] Comment on above: mL/min/1.73m2 CKD-EP I Creatinine Equation (2020) Hematocrit Auto (Bld) [Volum e fraction]Ordered By: Celeste Jacobo on 12-10-2024 Hematocrit (Bld) [Volume fraction] 29.3 % Low 37-47 [facility] Hemoglobin measurementOrdere d By: Celeste Jacobo on 12-10-2024 Hemoglobin (Bld) [Mass/Vol] 10.5 g/dL Low 12.0-15.0 [facility] Immature granulocytes/100 WB C Auto (Bld)Ordered By: Celeste Jacobo on 12-10-2024 Immature granulocytes/100 WBC (Bld) 0.800 % 0.0-0.9 [facility] Comment on above: IG% - Immature Granu locytes (promyelocytes, myelocytes and metamyelocytes) > 1% indicates that a LEFT SHIFT is Present. Laboratory - Chemistry and C hemistry - challengeOrdered By: Celeste Jacobo on 12-10-2024 AST [Catalytic activity/Vol] 63 U/L High <32 [facility] LevetiracetamOrdered By: Yonatan Jacobo on 12-10-2024 levETIRAcetam [Mass/Vol] 21.5 ug/mL 10.0-40.0 [facility] MCV (mean corpuscular volume ) determinationOrdered By: Celeste Jacobo on 12-10-2024 MCV (RBC) [Entitic vol] 92.7 fL 81-99 [facility] Mean corpuscular hemoglobin (MCH) determinationOrdered By: Celeste Jacobo on 12-10-2024 MCH (RBC) [Entitic mass] 33.2 pg High 27.0-32.0 [facility] Mean corpuscular hemoglobin concentration (MCHC) determinationOrdered By: Celeste Jacobo on 12-10-2024 MCHC (RBC) [Mass/Vol] 35.8 g/dL 32-36 [facility] Mean platelet volume determi nationOrdered By: Celeste Jacobo on 12-10-2024 Platelet mean volume (Bld) [Entitic vol] 10.9 fL 6.2-12.0 [facility] Monocyte percentageOrdered B y: Celeste Jacobo on 12-10-2024 Monocytes/100 WBC (Bld) 6.9 % 0-10 [facility] Neutrophil percentageOrdered By: Celeste Jacobo on 12-10-2024 Neutrophils/100 WBC (Bld) 85.9 % High 47-70 [facility] No Panel InformationOrdered By: Celeste Jacobo on 12-10-2024 63 U/L High <32 [facility] Nucleated red blood cell per centageOrdered By: Celeste Jacobo on 12-10-2024 Nucleated RBC/100 WBC (Bld) [Ratio] 0 % 0-5 [facility] Platelet countOrdered By: Aki Jacobo on 12-10-2024 Platelets (Bld) [#/Vol] 231 10*3/uL 150-450 [facility] Potassium measurement (mass/ volume)Ordered By: Celeste Jacobo on 12-10-2024 Potassium (Unsp spec) [Mass/Vol] 3.6 mmol/L 3.3-5.1 [facility] RBC Auto (Bld) [#/Vol]Ordere d By: Celeste Jacobo on 12-10-2024 RBC (Bld) [#/Vol] 3.16 10*6/uL Low 4.2-5.4 [facility] Serum creatinine measurement (mass/volume)Ordered By: Celeste Jacobo on 12-10-2024 Creatinine [Mass/Vol] 0.71 mg/dL 0.70-1.20 [facility] Serum globulin measurementOr dered By: Celeste Jacobo on 12-10-2024 Globulin (S) [Mass/Vol] 1.9 g/dL Low 2.2-4.2 [facility] Serum glucose measurement (m ass/volume)Ordered By: Celeste Jacobo on 12-10-2024 Glucose [Mass/Vol] 141 mg/dL High 70-99 [facility] Serum or plasma alanine oliver otransferase (ALT) measurementOrdered By: Celeste Jacobo on 12-10-2024 ALT [Catalytic activity/Vol] 130 U/L High <35 [facility] Serum or plasma albumin ena urement (mass/volume)Ordered By: Celeste Jacobo on 12-10-2024 Albumin [Mass/Vol] 3.3 g/dL Low 3.4-4.8 [facility] Serum or plasma albumin/glob ulin mass ratioOrdered By: Celeste Jacobo on 12-10-2024 Albumin/Globulin [Mass ratio] 1.7 {ratio} 0.9-2.4 [facility] Serum or plasma alkaline brenna sphatase measurementOrdered By: Celeste Christopherkayy on 12-10-2024 ALP [Catalytic activity/Vol] 94 U/L 35-104 [facility] Serum or plasma calcium ena urement (mass/volume)Ordered By: Celeste Christophermilindnadeem on 12-10-2024 Calcium [Mass/Vol] 8.5 mg/dL 7.6-11.0 [facility] Serum or plasma urea nitroge n measurement (mass/volume)Ordered By: Celeste Christophermilindnadeem on 12-10-2024 Urea nitrogen [Mass/Vol] 22 mg/dL High 4-19 [facility] Sodium levelOrdered By: Ronald lopez Christophermilindnadeem on 12-10-2024 Sodium [Moles/Vol] 131 mmol/L Low 133-145 [facility] Total proteinOrdered By: Yonatan jimenez Christophermilindnadeem on 12-10-2024 Protein [Mass/Vol] 5.2 g/dL Low 5.9-8.4 [facility] Vitamin B12 ser/plasOrdered By: Celeste Christophermilindnadeem on 12-10-2024 Cobalamin (Vitamin B12) [Mass/Vol] 2286 pg/mL High 180-914 [facility] White blood cell (WBC) count Ordered By: Celeste Christophermilindnadeem on 12-10-2024 WBC (Bld) [#/Vol] 8.5 10*3/uL 4.4-11.0 [facility] CBC W/Diff, Automatedon Absolute Neut Normal 2.0-7.7 [facility] Comment on above: Result Comment: Canc elled via OM: Order cancelled - Patient discharged Performed By: #### L 100.0100 ####[facility] [address] [place], [place], [address] HCT Normal 37-47 [facility] Comment on above: Result Comment: Canc elled via OM: Order cancelled - Patient discharged Performed By: #### L 100.0100 ####[facility] [address] [place], [address] HGB Normal 12.0-15.0 [facility] Comment on above: Result Comment: Canc elled via OM: Order cancelled - Patient discharged Performed By: #### L 100.0100 ####[facility] [address] [place], [address] MCH Normal 27.0-32.0 [facility] Comment on above: Result Comment: Canc elled via OM: Order cancelled - Patient discharged Performed By: #### L 100.0100 ####[facility] [address] [place], [address] MCHC Normal 32-36 [facility] Comment on above: Result Comment: Canc elled via OM: Order cancelled - Patient discharged Performed By: #### L 100.0100 ####[facility] [address] [place], [address] MCV Normal 81-99 [facility] Comment on above: Result Comment: Canc elled via OM: Order cancelled - Patient discharged Performed By: #### L 100.0100 ####[facility] [address] [place], [address] NEUT% Normal 47-70 [facility] Comment on above: Result Comment: Canc elled via OM: Order cancelled - Patient discharged Performed By: #### L 100.0100 ####[facility] [address] [place], [address] PLT Normal 150-450 [facility] Comment on above: Result Comment: Canc elled via OM: Order cancelled - Patient discharged Performed By: #### L 100.0100 ####[facility] [address] [place], [address] RBC Normal 4.2-5.4 [facility] Comment on above: Result Comment: Canc elled via OM: Order cancelled - Patient discharged Performed By: #### L 100.0100 ####[facility] [address] [place], [address] RDW CV Normal 11.6-14.6 [facility] Comment on above: Result Comment: Canc elled via OM: Order cancelled - Patient discharged Performed By: #### L 100.0100 ####[facility] [address] [place], [address] RDW SD Normal 35.1-43.9 [facility] Comment on above: Result Comment: Canc elled via OM: Order cancelled - Patient discharged Performed By: #### L 100.0100 ####[facility] [address] [place], [address] WBC Normal 4.4-11.0 [facility] Comment on above: Result Comment: Canc elled via OM: Order cancelled - Patient discharged Performed By: #### L 100.0100 ####[facility] [address] [place], [address] Anion gap in Serum or Plasma Ordered By: Alix Hudson on 12-06-2024 Anion gap [Moles/Vol] 8 mmol/L - [facility] BUN/creatinine ratioOrdered By: Alix Hudson on 12-06-2024 Urea nitrogen/Creatinine [Mass ratio] 19.4 mg/mg - [facility] Basic Metabolic Profile (BMP )on 12-06-2024 BUN/CRE 19.4 RATIO Normal - [facility] Comment on above: Performed By: #### L 500.2500 ####[facility] [address] [place], [address] Calcium [Mass/Vol] 8.4 mg/dL Normal 7.6-11.0 [facility] Comment on above: Performed By: #### L 500.2500 ####[facility] [address] [place], [address] Chloride [Moles/Vol] 101 mmol/L Normal 98-108 [facility] Comment on above: Performed By: #### L 500.2500 ####[facility] [address] [place], [address] CO2 [Moles/Vol] 23.6 mmol/L Normal 21.0-32.0 [facility] Comment on above: Performed By: #### L 500.2500 ####[facility] [address] [place], [address] Creatinine [Mass/Vol] 0.68 mg/dL Low 0.70-1.20 [facility] Comment on above: Performed By: #### L 500.2500 ####[facility] [address] [place], [address] ECRCL 39.62 ml/min Low 50-250 [facility] Comment on above: Performed By: #### L 500.2500 ####[facility] [address] [place], [address] GAP 8 Normal 5-15 [facility] Comment on above: Performed By: #### L 500.2500 ####[facility] [address] [place], [address] GFR/1.73 sq M.predicted among non-blacks MDRD (S/P/Bld) [Vol rate/Area] 88 mL/min/{1.73_m2} Normal >60 [facility] Comment on above: Result Comment: mL/m in/1.73m2 CKD-EPI Creatinine Equation (2020) Performed By: #### L 500.2500 ####[facility] [address] [place], [address] Glucose [Mass/Vol] 99 mg/dL Normal 70-99 [facility] Comment on above: Performed By: #### L 500.2500 ####[facility] [address] [place], [address] Potassium [Moles/Vol] 3.8 mmol/L Normal 3.3-5.1 [facility] Comment on above: Performed By: #### L 500.2500 ####[facility] [address] [place], [address] Sodium [Moles/Vol] 133 mmol/L Normal 133-145 [facility] Comment on above: Performed By: #### L 500.2500 ####[facility] [address] [place], [address] Urea nitrogen [Mass/Vol] 13 mg/dL Normal 4-19 [facility] Comment on above: Performed By: #### L 500.2500 ####[facility] [address] [place], [place], [phone] Carbon dioxide, total [Moles /volume] in Central venous bloodOrdered By: Alix Hudson on 12-06-2024 CO2 [Moles/Vol] 23.6 mmol/L 21.0-32.0 [facility] Chloride assayOrdered By: Priya Hudson on 12-06-2024 Chloride [Moles/Vol] 101 mmol/L 98-108 [facility] Glomerular filtration rate ( GFR) estimation/1.73 sq m using serum, plasma, or whole bOrdered By: Alix Hudson on 12-06-2024 GFR/1.73 sq M.predicted among non-blacks MDRD (S/P/Bld) [Vol rate/Area] 88 mL/min/{1.73_m2} >60 [facility] Comment on above: mL/min/1.73m2 CKD-EP I Creatinine Equation (2020) Potassium measurement (mass/ volume)Ordered By: Alix Hudson on 12-06-2024 Potassium (Unsp spec) [Mass/Vol] 3.8 mmol/L 3.3-5.1 [facility] Serum creatinine measurement (mass/volume)Ordered By: Alix Hudson on 12-06-2024 Creatinine [Mass/Vol] 0.68 mg/dL Low 0.70-1.20 [facility] Serum glucose measurement (m ass/volume)Ordered By: Alix Hudson on 12-06-2024 Glucose [Mass/Vol] 99 mg/dL 70-99 [facility] Serum or plasma calcium ena urement (mass/volume)Ordered By: Alix Hudson on 12-06-2024 Calcium [Mass/Vol] 8.4 mg/dL 7.6-11.0 [facility] Serum or plasma urea nitroge n measurement (mass/volume)Ordered By: Alix Hudson on 12-06-2024 Urea nitrogen [Mass/Vol] 13 mg/dL 4-19 [facility] Sodium levelOrdered By: Regina Hudson on 12-06-2024 Sodium [Moles/Vol] 133 mmol/L 133-145 [facility] Urine Cultureon 12-06-2024 URC Normal [facility] Comment on above: Performed By: #### M 100.2200 ####[facility] [address] [place], [address] Basic Metabolic Profile (BMP )on 12-05-2024 BUN/CRE 22.7 RATIO High 10-20 [facility] Comment on above: Performed By: #### L 500.2500 ####[facility] [address] [place], [address] Calcium [Mass/Vol] 8.8 mg/dL Normal 7.6-11.0 [facility] Comment on above: Performed By: #### L 500.2500 ####[facility] [address] [place], [address] Chloride [Moles/Vol] 93 mmol/L Low 98-108 [facility] Comment on above: Performed By: #### L 500.2500 ####[facility] [address] [place], [address] CO2 [Moles/Vol] 23.2 mmol/L Normal 21.0-32.0 [facility] Comment on above: Performed By: #### L 500.2500 ####[facility] [address] [place], [address] Creatinine [Mass/Vol] 0.69 mg/dL Low 0.70-1.20 [facility] Comment on above: Performed By: #### L 500.2500 ####[facility] [address] [place], [address] ECRCL 39.62 ml/min Low 50-250 [facility] Comment on above: Performed By: #### L 500.2500 ####[facility] [address] [place], [address] GAP 10 Normal 5-15 [facility] Comment on above: Performed By: #### L 500.2500 ####[facility] [address] [place], [address] GFR/1.73 sq M.predicted among non-blacks MDRD (S/P/Bld) [Vol rate/Area] 87 mL/min/{1.73_m2} Normal >60 [facility] Comment on above: Result Comment: mL/m in/1.73m2 CKD-EPI Creatinine Equation (2020) Performed By: #### L 500.2500 ####[facility] [address] [place], [address] Glucose [Mass/Vol] 156 mg/dL High 70-99 [facility] Comment on above: Performed By: #### L 500.2500 ####[facility] [address] [place], [address] Potassium [Moles/Vol] 4.0 mmol/L Normal 3.3-5.1 [facility] Comment on above: Performed By: #### L 500.2500 ####[facility] [address] [place], [address] Sodium [Moles/Vol] 126 mmol/L Low 133-145 [facility] Comment on above: Performed By: #### L 500.2500 ####[facility] [address] [place], [address] Urea nitrogen [Mass/Vol] 16 mg/dL Normal 4-19 [facility] Comment on above: Performed By: #### L 500.2500 ####[facility] [address] [place], [address] BUN/CRE 21.2 RATIO High 10-20 [facility] Comment on above: Performed By: #### L 500.2500, L100.0500 ####[facility] [address] [place], [address] Calcium [Mass/Vol] 8.5 mg/dL Normal 7.6-11.0 [facility] Comment on above: Performed By: #### L 500.2500, L100.0500 ####[facility] [address] [place], [address] Chloride [Moles/Vol] 94 mmol/L Low 98-108 [facility] Comment on above: Performed By: #### L 500.2500, L100.0500 ####[facility] [address] [place], [address] CO2 [Moles/Vol] 21.8 mmol/L Normal 21.0-32.0 [facility] Comment on above: Performed By: #### L 500.2500, L100.0500 ####[facility] [address] [place], [address] Creatinine [Mass/Vol] 0.60 mg/dL Low 0.70-1.20 [facility] Comment on above: Performed By: #### L 500.2500, L100.0500 ####[facility] [address] [place], [address] ECRCL 39.62 ml/min Low 50-250 [facility] Comment on above: Performed By: #### L 500.2500, L100.0500 ####[facility] [address] [place], [address] GAP 11 Normal 5-15 [facility] Comment on above: Performed By: #### L 500.2500, L100.0500 ####[facility] [address] [place], [address] GFR/1.73 sq M.predicted among non-blacks MDRD (S/P/Bld) [Vol rate/Area] 90 mL/min/{1.73_m2} Normal >60 [facility] Comment on above: Result Comment: mL/m in/1.73m2 CKD-EPI Creatinine Equation (2020) Performed By: #### L 500.2500, L100.0500 ####[facility] [address] [place], [address] Glucose [Mass/Vol] 94 mg/dL Normal 70-99 [facility] Comment on above: Performed By: #### L 500.2500, L100.0500 ####[facility] [address] [place], [address] Potassium [Moles/Vol] 3.8 mmol/L Normal 3.3-5.1 [facility] Comment on above: Performed By: #### L 500.2500, L100.0500 ####[facility] [address] [place], [address] Sodium [Moles/Vol] 126 mmol/L Low 133-145 [facility] Comment on above: Performed By: #### L 500.2500, L100.0500 ####[facility] [address] [place], [address] Urea nitrogen [Mass/Vol] 13 mg/dL Normal 4-19 [facility] Comment on above: Performed By: #### L 500.2500, L100.0500 ####[facility] [address] [place], [address] CBC-Complete Blood Cnt No Di ffon 12-05-2024 Erythrocyte distribution width (RBC) [Ratio] 12.4 % Normal 11.6-14.6 [facility] Comment on above: Performed By: #### L 500.2500, L100.0500 ####[facility] [address] [place], [address] Hematocrit (Bld) [Volume fraction] 27.4 % Low 37-47 [facility] Comment on above: Performed By: #### L 500.2500, L100.0500 ####[facility] [address] [place], [address] Hemoglobin (Bld) [Mass/Vol] 9.8 g/dL Low 12.0-15.0 [facility] Comment on above: Performed By: #### L 500.2500, L100.0500 ####[facility] [address] [place], [address] MCH (RBC) [Entitic mass] 33.0 pg High 27.0-32.0 [facility] Comment on above: Performed By: #### L 500.2500, L100.0500 ####[facility] [address] [place], [address] MCHC (RBC) [Mass/Vol] 35.8 g/dL Normal 32-36 [facility] Comment on above: Performed By: #### L 500.2500, L100.0500 ####[facility] [address] [place], [address] MCV (RBC) [Entitic vol] 92.3 fL Normal 81-99 [facility] Comment on above: Performed By: #### L 500.2500, L100.0500 ####[facility] [address] [place], [address] Platelet mean volume (Bld) [Entitic vol] 10.8 fL Normal 6.2-12.0 [facility] Comment on above: Performed By: #### L 500.2500, L100.0500 ####[facility] [address] [place], [address] Platelets (Bld) [#/Vol] 196 10*3/uL Normal 150-450 [facility] Comment on above: Performed By: #### L 500.2500, L100.0500 ####[facility] [address] [place], [address] RBC (Bld) [#/Vol] 2.97 10*6/uL Low 4.2-5.4 [facility] Comment on above: Performed By: #### L 500.2500, L100.0500 ####[facility] [address] [place], [address] RDW SD 41.6 fl Normal 35.1-43.9 [facility] Comment on above: Performed By: #### L 500.2500, L100.0500 ####[facility] [address] [place], [address] WBC (Bld) [#/Vol] 7.0 10*3/uL Normal 4.4-11.0 [facility] Comment on above: Performed By: #### L 500.2500, L100.0500 ####[facility] [address] [place], [address] Consultation - Nephrologyon 12-05-2024 Consultation - Nephrology Normal [facility] Erythrocyte distribution wid th ratioOrdered By: Alix Hudson on 12-05-2024 Erythrocyte distribution width (RBC) [Ratio] 12.4 % 11.6-14.6 [facility] Erythrocyte distribution wid th standard deviationOrdered By: Alix Hudson on 12-05-2024 Erythrocyte distribution width (RBC) [Ratio] 41.6 fl 35.1-43.9 [facility] Hematocrit Auto (Bld) [Volum e fraction]Ordered By: Alix Hudson on 12-05-2024 Hematocrit (Bld) [Volume fraction] 27.4 % Low 37-47 [facility] Hemoglobin measurementOrdere d By: Alix Hudson on 12-05-2024 Hemoglobin (Bld) [Mass/Vol] 9.8 g/dL Low 12.0-15.0 [facility] MCV (mean corpuscular volume ) determinationOrdered By: Alix Hudson on 12-05-2024 MCV (RBC) [Entitic vol] 92.3 fL 81-99 [facility] Mean corpuscular hemoglobin (MCH) determinationOrdered By: Alix Hudson on 12-05-2024 MCH (RBC) [Entitic mass] 33.0 pg High 27.0-32.0 [facility] Mean corpuscular hemoglobin concentration (MCHC) determinationOrdered By: Alix Hudson on 12-05-2024 MCHC (RBC) [Mass/Vol] 35.8 g/dL 32-36 [facility] Mean platelet volume determi nationOrdered By: Alix Hudson on 12-05-2024 Platelet mean volume (Bld) [Entitic vol] 10.8 fL 6.2-12.0 [facility] Platelet countOrdered By: Priya Hudson on 12-05-2024 Platelets (Bld) [#/Vol] 196 10*3/uL 150-450 [facility] RBC Auto (Bld) [#/Vol]Ordere d By: Alix Hudson on 12-05-2024 RBC (Bld) [#/Vol] 2.97 10*6/uL Low 4.2-5.4 [facility] White blood cell (WBC) count Ordered By: Alix Hudson on 12-05-2024 WBC (Bld) [#/Vol] 7.0 10*3/uL 4.4-11.0 [facility] Absolute lymphocyte countOrd ered By: Darnell Vera on 12-04-2024 Lymphocytes Auto (Unsp spec) [#/Vol] 0.53 10*3/uL Low 0.83-4.51 [facility] Absolute neutrophil countOrd ered By: Darnell Vera on 12-04-2024 Neutrophils (Bld) [#/Vol] 6.6 10*3/uL 2.0-7.7 [facility] Automated lymphocyte count a s percentage of total leukocytesOrdered By: Darnell Vera on 12-04-2024 Lymphocytes/100 WBC Auto (Unsp spec) 6.8 % Low 19-41 [facility] Basophil percentageOrdered B y: Darnell Vera on 12-04-2024 Basophils/100 WBC (Bld) 0.3 % 0-1 [facility] Bilirubin, totalOrdered By: Darnell Juarezo on 12-04-2024 Bilirubin [Mass/Vol] 0.57 mg/dL 0.00-1.30 [facility] CBC W/Diff, Automatedon Absolute Lymph 0.53 X10 3/uL Low 0.83-4.51 [facility] Comment on above: Performed By: #### L 500.4050, L100.0100, L500.4100, L501.2300 ####[facility] [address] [place], [address] Absolute Neut 6.6 X10 3/uL Normal 2.0-7.7 [facility] Comment on above: Performed By: #### L 500.4050, L100.0100, L500.4100, L501.2300 ####[facility] [address] [place], [address] Basophils/100 WBC (Bld) 0.3 % Normal 0-1 [facility] Comment on above: Performed By: #### L 500.4050, L100.0100, L500.4100, L501.2300 ####[facility] [address] [place], [address] Eosinophils/100 WBC (Bld) 0.4 % Normal 0-5 [facility] Comment on above: Performed By: #### L 500.4050, L100.0100, L500.4100, L501.2300 ####[facility] [address] [place], [address] Erythrocyte distribution width (RBC) [Ratio] 12.5 % Normal 11.6-14.6 [facility] Comment on above: Performed By: #### L 500.4050, L100.0100, L500.4100, L501.2300 ####[facility] [address] [place], [address] Hematocrit (Bld) [Volume fraction] 26.0 % Low 37-47 [facility] Comment on above: Performed By: #### L 500.4050, L100.0100, L500.4100, L501.2300 ####[facility] [address] [place], [address] Hemoglobin (Bld) [Mass/Vol] 9.4 g/dL Low 12.0-15.0 [facility] Comment on above: Performed By: #### L 500.4050, L100.0100, L500.4100, L501.2300 ####[facility] [address] [place], [address] IG% 0.600 Normal 0.0-0.9 [facility] Comment on above: Result Comment: IG% - Immature Granulocytes (promyelocytes, myelocytes andmetamyelocytes) > 1% indicates that a LEFT SHIFT is Present. Performed By: #### L 500.4050, L100.0100, L500.4100, L501.2300 ####[facility] [address] [place], [address] Lymphocytes/100 WBC (Bld) 6.8 % Low 19-41 [facility] Comment on above: Performed By: #### L 500.4050, L100.0100, L500.4100, L501.2300 ####[facility] [address] [place], [address] MCH (RBC) [Entitic mass] 33.2 pg High 27.0-32.0 [facility] Comment on above: Performed By: #### L 500.4050, L100.0100, L500.4100, L501.2300 ####[facility] [address] [place], [address] MCHC (RBC) [Mass/Vol] 36.2 g/dL High 32-36 [facility] Comment on above: Performed By: #### L 500.4050, L100.0100, L500.4100, L501.2300 ####[facility] [address] [place], [address] MCV (RBC) [Entitic vol] 91.9 fL Normal 81-99 [facility] Comment on above: Performed By: #### L 500.4050, L100.0100, L500.4100, L501.2300 ####[facility] [address] [place], [address] Monocytes/100 WBC (Bld) 7.5 % Normal 0-10 [facility] Comment on above: Performed By: #### L 500.4050, L100.0100, L500.4100, L501.2300 ####[facility] [address] [place], [address] Neutrophils/100 WBC (Bld) 84.4 % High 47-70 [facility] Comment on above: Performed By: #### L 500.4050, L100.0100, L500.4100, L501.2300 ####[facility] [address] [place], [address] Nucleated RBC (Bld) [#/Vol] 0 10*3/uL Normal 0-5 [facility] Comment on above: Performed By: #### L 500.4050, L100.0100, L500.4100, L501.2300 ####[facility] [address] [place], [address] Platelet mean volume (Bld) [Entitic vol] 9.8 fL Normal 6.2-12.0 [facility] Comment on above: Performed By: #### L 500.4050, L100.0100, L500.4100, L501.2300 ####[facility] [address] [place], [address] Platelets (Bld) [#/Vol] 177 10*3/uL Normal 150-450 [facility] Comment on above: Performed By: #### L 500.4050, L100.0100, L500.4100, L501.2300 ####[facility] [address] [place], [address] RBC (Bld) [#/Vol] 2.83 10*6/uL Low 4.2-5.4 [facility] Comment on above: Performed By: #### L 500.4050, L100.0100, L500.4100, L501.2300 ####[facility] [address] [place], [address] RDW SD 42.1 fl Normal 35.1-43.9 [facility] Comment on above: Performed By: #### L 500.4050, L100.0100, L500.4100, L501.2300 ####[facility] [address] [place], [address] WBC (Bld) [#/Vol] 7.8 10*3/uL Normal 4.4-11.0 [facility] Comment on above: Performed By: #### L 500.4050, L100.0100, L500.4100, L501.2300 ####[facility] [address] [place], [address] Calculated very low density lipoprotein (VLDL) cholesterol measurementOrdered By: Darnell Vera on 12-04-2024 Calculated very low density lipoprotein (VLDL) cholesterol measurement 9 mg/dL 5-40 [facility] Comprehensive Metabolic Prof ilon 12-04-2024 Albumin [Mass/Vol] 3.2 g/dL Low 3.4-4.8 [facility] Comment on above: Performed By: #### L 500.4050, L100.0100, L500.4100, L501.2300 ####[facility] [address], [address] Albumin/Globulin [Mass ratio] 1.8 {ratio} Normal 0.9-2.4 [facility] Comment on above: Performed By: #### L 500.4050, L100.0100, L500.4100, L501.2300 ####[facility] [address] [place], [address] ALK PHOS 90 U/L Normal 35-104 [facility] Comment on above: Performed By: #### L 500.4050, L100.0100, L500.4100, L501.2300 ####[facility] [address] [place], [address] ALT [Catalytic activity/Vol] 239 U/L High <=34 [facility] Comment on above: Performed By: #### L 500.4050, L100.0100, L500.4100, L501.2300 ####[facility] [address], [address] AST [Catalytic activity/Vol] 99 U/L High <=31 [facility] Comment on above: Performed By: #### L 500.4050, L100.0100, L500.4100, L501.2300 ####[facility] [address] [place], [address] Bilirubin [Mass/Vol] 0.57 mg/dL Normal 0.00-1.30 [facility] Comment on above: Performed By: #### L 500.4050, L100.0100, L500.4100, L501.2300 ####[facility] [address] [place], [address] BUN/CRE 20.2 RATIO High 10-20 [facility] Comment on above: Performed By: #### L 500.4050, L100.0100, L500.4100, L501.2300 ####[facility] [address] [place], [address] Calcium [Mass/Vol] 8.2 mg/dL Normal 7.6-11.0 [facility] Comment on above: Performed By: #### L 500.4050, L100.0100, L500.4100, L501.2300 ####[facility] [address] [place], [address] Chloride [Moles/Vol] 100 mmol/L Normal 98-108 [facility] Comment on above: Performed By: #### L 500.4050, L100.0100, L500.4100, L501.2300 ####[facility] [address] [place], [address] CO2 [Moles/Vol] 21.1 mmol/L Normal 21.0-32.0 [facility] Comment on above: Performed By: #### L 500.4050, L100.0100, L500.4100, L501.2300 ####[facility] [address] [place], [address] Creatinine [Mass/Vol] 0.63 mg/dL Low 0.70-1.20 [facility] Comment on above: Performed By: #### L 500.4050, L100.0100, L500.4100, L501.2300 ####[facility] [address] [place], [address] ECRCL 39.62 ml/min Low 50-250 [facility] Comment on above: Performed By: #### L 500.4050, L100.0100, L500.4100, L501.2300 ####[facility] [address], [address] GAP 9 Normal 5-15 [facility] Comment on above: Performed By: #### L 500.4050, L100.0100, L500.4100, L501.2300 ####[facility] [address] [place], [address] GFR/1.73 sq M.predicted among non-blacks MDRD (S/P/Bld) [Vol rate/Area] 89 mL/min/{1.73_m2} Normal >60 [facility] Comment on above: Result Comment: mL/m in/1.73m2 CKD-EPI Creatinine Equation (2020) Performed By: #### L 500.4050, L100.0100, L500.4100, L501.2300 ####[facility] [address] [place], [address] Globulin (S) [Mass/Vol] 1.8 g/dL Low 2.2-4.2 [facility] Comment on above: Performed By: #### L 500.4050, L100.0100, L500.4100, L501.2300 ####[facility] [address] [place], [address] Glucose [Mass/Vol] 85 mg/dL Normal 70-99 [facility] Comment on above: Performed By: #### L 500.4050, L100.0100, L500.4100, L501.2300 ####[facility] [address] [place], [address] Potassium [Moles/Vol] 3.7 mmol/L Normal 3.3-5.1 [facility] Comment on above: Performed By: #### L 500.4050, L100.0100, L500.4100, L501.2300 ####[facility] [address] [place], [address] Sodium [Moles/Vol] 130 mmol/L Low 133-145 [facility] Comment on above: Performed By: #### L 500.4050, L100.0100, L500.4100, L501.2300 ####[facility] [address] [place], [address] T PROT 5.0 g/dL Low 5.9-8.4 [facility] Comment on above: Performed By: #### L 500.4050, L100.0100, L500.4100, L501.2300 ####[facility] [address] [place], [address] Urea nitrogen [Mass/Vol] 13 mg/dL Normal 4-19 [facility] Comment on above: Performed By: #### L 500.4050, L100.0100, L500.4100, L501.2300 ####[facility] [address] [place], [address] Eosinophil percentageOrdered By: Darnell Vera on 12-04-2024 Eosinophils/100 WBC (Bld) 0.4 % 0-5 [facility] Folates,Serum (Folic Acid)on 12-04-2024 FOLATES,SERUM 17.50 ng/mL Normal 4.60-34.80 [facility] Comment on above: Result Comment: Hemo lysis, Results will be affected, Requires Recollection. Performed By: #### L 501.9520, L501.5200, L501.9985, L503.0106, L506.0200 ####[facility] [address] [place], [address] Hemoglobin A1con 12-04-2024 HbA1c (Bld) [Mass fraction] 5.1 % Normal <=5.6 [facility] Comment on above: Result Comment: Norm al < 5.7 % Prediabetic 5.7 - 6.4 % Diabetic >or= 6.5 % Please note range changes. Performed By: #### L 501.9520, L501.5200, L501.9985, L503.0106, L506.0200 ####[facility] [address] [place], [address] Immature granulocytes/100 WB C Auto (Bld)Ordered By: Darnell Vera on 12-04-2024 Immature granulocytes/100 WBC (Bld) 0.600 % 0.0-0.9 [facility] Comment on above: IG% - Immature Granu locytes (promyelocytes, myelocytes and metamyelocytes) > 1% indicates that a LEFT SHIFT is Present. LDL calc ser/plasOrdered By: Darnell Vera on 12-04-2024 Cholesterol in LDL [Mass/Vol] 58 mg/dL [facility] Comment on above: Zoltsvmjib=049-303 m g/dL & Higher Ztph=880 mg/dL or greater Laboratory - Chemistry and C hemistry - challengeOrdered By: Darnell Vera on 12-04-2024 AST [Catalytic activity/Vol] 99 U/L High <32 [facility] Lipid Profileon 12-04-2024 CHOL:HDL 2.19 Normal [facility] Comment on above: Performed By: #### L 500.4050, L100.0100, L500.4100, L501.2300 ####[facility] [address] [place], [address] Cholesterol [Mass/Vol] 124 mg/dL Normal <=200 [facility] Comment on above: Result Comment: Chol esterol level, Desirable <200 mg/dLBorderline high cholesterol 200-239 mg/dLHigh cholesterol >=240 mg/dLRecommendations of the NCEP Adult Treatment Panel for thefollowing risk-cutoff thresholds for the [place] Americanpopulation. Performed By: #### L 500.4050, L100.0100, L500.4100, L501.2300 ####[facility] [address] [place], [address] Cholesterol in HDL [Mass/Vol] 57 mg/dL Normal [facility] Comment on above: Result Comment: Isabela onal Cholesterol Education Program (NCEP) guidelines:<40 mg/dL: Low HDL-cholesterol (major risk factor for CHD)>= 60 mg/dL: High HDL-cholesterol (negative risk factor forCHD)HDL-cholesterol is affected by a number of factors, e.g.smoking, exercise, hormones, sex and age. Performed By: #### L 500.4050, L100.0100, L500.4100, L501.2300 ####[facility] [address] [place], [address] Cholesterol in LDL [Mass/Vol] 58 mg/dL Normal [facility] Comment on above: Result Comment: Bord qzowsi=417-706 mg/dL Higher Dazm=654 mg/dL or greater Performed By: #### L 500.4050, L100.0100, L500.4100, L501.2300 ####[facility] [address] [place], [address] Cholesterol in VLDL [Mass/Vol] 9 mg/dL Normal 5-40 [facility] Comment on above: Performed By: #### L 500.4050, L100.0100, L500.4100, L501.2300 ####[facility] [address] [place], [address] Triglyceride [Mass/Vol] 47 mg/dL Normal [facility] Comment on above: Result Comment: The drugs N-Acetylcysteine and Metamizole may falselydepress this assay.Normal range: <150 mg/dLBorderline High: 150-199 mg/dLHigh: 200-499 mg/dLVery High: >500 mg/dL Performed By: #### L 500.4050, L100.0100, L500.4100, L501.2300 ####[facility] [address] [place], [address] Magnesiumon 12-04-2024 Magnesium [Mass/Vol] 1.9 mg/dL Normal 1.5-2.2 [facility] Comment on above: Performed By: #### L 501.5756, L501.5200, L501.9985, L503.0106, L506.0200 ####[facility] [address] [place], [place], [id number] Monocyte percentageOrdered B y: Darnell Vera on 12-04-2024 Monocytes/100 WBC (Bld) 7.5 % 0-10 [facility] Neutrophil percentageOrdered By: Darnell Vera on 12-04-2024 Neutrophils/100 WBC (Bld) 84.4 % High 47-70 [facility] No Panel InformationOrdered By: Darnell Vera on 12-04-2024 99 U/L High <32 [facility] [facility] Nucleated red blood cell per centageOrdered By: Darnell Vera on 12-04-2024 Nucleated RBC/100 WBC (Bld) [Ratio] 0 % 0-5 [facility] Phosphoruson 12-04-2024 Phosphate [Mass/Vol] 3.1 mg/dL Normal 2.7-4.5 [facility] Comment on above: Performed By: #### L 500.4050, L100.0100, L500.4100, L501.2300 ####[facility] [address] [place], [place], [id number] Screening total cholesterol/ high density lipoprotein (HDL) cholesterol ratioOrdered By: Darnell Vera on 12-04-2024 Cholesterol.total/Chol esterol in HDL [Mass ratio] 2.19 {ratio} [facility] Serum globulin measurementOr dered By: Darnell Vera on 12-04-2024 Globulin (S) [Mass/Vol] 1.8 g/dL Low 2.2-4.2 [facility] Serum or plasma alanine oliver otransferase (ALT) measurementOrdered By: Darnell Vera on 12-04-2024 ALT [Catalytic activity/Vol] 239 U/L High <35 [facility] Serum or plasma albumin ena urement (mass/volume)Ordered By: Darnell Vera on 12-04-2024 Albumin [Mass/Vol] 3.2 g/dL Low 3.4-4.8 [facility] Serum or plasma albumin/glob ulin mass ratioOrdered By: Darnell Vera on 12-04-2024 Albumin/Globulin [Mass ratio] 1.8 {ratio} 0.9-2.4 [facility] Serum or plasma alkaline brenna sphatase measurementOrdered By: Darnell Vera on 12-04-2024 ALP [Catalytic activity/Vol] 90 U/L 35-104 [facility] Serum or plasma cholesterol in HDL measurement (mass/volume)Ordered By: Darnell Vera on 12-04-2024 Cholesterol in HDL [Mass/Vol] 57 mg/dL >40 [facility] Comment on above: National Cholesterol Education Program (NCEP) guidelines:<40 mg/dL: Low HDL-cholesterol (major risk factor for CHD)>= 60 mg/dL: High HDL-cholesterol (negative risk factor for CHD)HDL-cholesterol is affected by a number of factors, e.g. smoking, exercise, hormones, sex and age. Serum or plasma cholesterol measurement (mass/volume)Ordered By: Darnell Vera on 12-04-2024 Cholesterol [Mass/Vol] 124 mg/dL <201 [facility] Comment on above: Cholesterol level, D esirable <200 mg/dLBorderline high cholesterol 200-239 mg/dLHigh cholesterol >=240 mg/dLRecommendations of the NCEP Adult Treatment Panel for the following risk-cutoff thresholds for the [place] population. Thyroid Stim Hormone (TSH)on 12-04-2024 TSH 1.500 uIU/mL Normal 0.300-4.200 [facility] Comment on above: Performed By: #### L 501.9520, L501.5200, L501.9985, L503.0106, L506.0200 ####[facility] [address] [place], [place], [id number] Total proteinOrdered By: Abbe Vera on 12-04-2024 Protein [Mass/Vol] 5.0 g/dL Low 5.9-8.4 [facility] Triglycerides measurementOrd ered By: Darnell Vera on 12-04-2024 Triglyceride [Mass/Vol] 47 mg/dL <199 [facility] Comment on above: The drugs N-Acetylcy steine and Metamizole may falsely depress this assay. Normal range: <150 mg/dLBorderline High: 150-199 mg/dLHigh: 200-499 mg/dLVery High: >500 mg/dL Vitamin B12on 12-04-2024 Cobalamin (Vitamin B12) [Mass/Vol] 2668 pg/mL High 180-914 [facility] Comment on above: Performed By: #### L 501.9520, L501.5200, L501.9985, L503.0106, L506.0200 ####[facility] [address] [place], [address] Absolute lymphocyte countOrd ered By: Hayden Sadler on 12-03-2024 Lymphocytes Auto (Unsp spec) [#/Vol] 0.66 10*3/uL Low 0.83-4.51 [facility] Absolute neutrophil countOrd ered By: Hayden Sadler on 12-03-2024 Neutrophils (Bld) [#/Vol] 5.9 10*3/uL 2.0-7.7 [facility] Anion gap in Serum or Plasma Ordered By: Hayden Sadler on 12-03-2024 Anion gap [Moles/Vol] 10 mmol/L 5-15 [facility] Automated lymphocyte count a s percentage of total leukocytesOrdered By: Hayden Sadler on 12-03-2024 Lymphocytes/100 WBC Auto (Unsp spec) 9.0 % Low 19-41 [facility] BUN/creatinine ratioOrdered By: Hayden Sadler on 12-03-2024 Urea nitrogen/Creatinine [Mass ratio] 22.8 mg/mg High 10-20 [facility] Basophil percentageOrdered B y: Hayden Sadler on 12-03-2024 Basophils/100 WBC (Bld) 0.3 % 0-1 [facility] Bilirubin Test strip Ql (U)O rdered By: Hayden Sadler on 12-03-2024 Bilirubin Ql (U) Negative Negative [facility] Bilirubin, totalOrdered By: Hayden Sadler on 12-03-2024 Bilirubin [Mass/Vol] 0.65 mg/dL 0.00-1.30 [facility] CBC W/Diff, Automatedon 06-3 0-2025 Absolute Lymph 0.66 X10 3/uL Low 0.83-4.51 [facility] Comment on above: Performed By: #### L 500.4050, L100.0100, L501.2450 ####[facility] [address] [place], [address] Absolute Neut 5.9 X10 3/uL Normal 2.0-7.7 [facility] Comment on above: Performed By: #### L 500.4050, L100.0100, L501.2450 ####[facility] [address] [place], [address] Basophils/100 WBC (Bld) 0.3 % Normal 0-1 [facility] Comment on above: Performed By: #### L 500.4050, L100.0100, L501.2450 ####[facility] [address] [place], [address] Eosinophils/100 WBC (Bld) 0.1 % Normal 0-5 [facility] Comment on above: Performed By: #### L 500.4050, L100.0100, L501.2450 ####[facility] [address] [place], [address] Erythrocyte distribution width (RBC) [Ratio] 12.6 % Normal 11.6-14.6 [facility] Comment on above: Performed By: #### L 500.4050, L100.0100, L501.2450 ####[facility] [address] [place], [address] Hematocrit (Bld) [Volume fraction] 28.2 % Low 37-47 [facility] Comment on above: Performed By: #### L 500.4050, L100.0100, L501.2450 ####[facility] [address] [place], [address] Hemoglobin (Bld) [Mass/Vol] 10.0 g/dL Low 12.0-15.0 [facility] Comment on above: Performed By: #### L 500.4050, L100.0100, L501.2450 ####[facility] [address] [place], [address] IG% 0.700 Normal 0.0-0.9 [facility] Comment on above: Result Comment: IG% - Immature Granulocytes (promyelocytes, myelocytes andmetamyelocytes) > 1% indicates that a LEFT SHIFT is Present. Performed By: #### L 500.4050, L100.0100, L501.2450 ####[facility] [address] [place], [address] Lymphocytes/100 WBC (Bld) 9.0 % Low 19-41 [facility] Comment on above: Performed By: #### L 500.4050, L100.0100, L501.2450 ####[facility] [address] [place], [address] MCH (RBC) [Entitic mass] 32.9 pg High 27.0-32.0 [facility] Comment on above: Performed By: #### L 500.4050, L100.0100, L501.2450 ####[facility] [address] [place], [address] MCHC (RBC) [Mass/Vol] 35.5 g/dL Normal 32-36 [facility] Comment on above: Performed By: #### L 500.4050, L100.0100, L501.2450 ####[facility] [address] [place], [address] MCV (RBC) [Entitic vol] 92.8 fL Normal 81-99 [facility] Comment on above: Performed By: #### L 500.4050, L100.0100, L501.2450 ####[facility] [address] [place], [address] Monocytes/100 WBC (Bld) 9.6 % Normal 0-10 [facility] Comment on above: Performed By: #### L 500.4050, L100.0100, L501.2450 ####[facility] [address] [place], [address] Neutrophils/100 WBC (Bld) 80.3 % High 47-70 [facility] Comment on above: Performed By: #### L 500.4050, L100.0100, L501.2450 ####[facility] [address] [place], [address] Nucleated RBC (Bld) [#/Vol] 0 10*3/uL Normal 0-5 [facility] Comment on above: Performed By: #### L 500.4050, L100.0100, L501.2450 ####[facility] [address] [place], [address] Platelet mean volume (Bld) [Entitic vol] 10.2 fL Normal 6.2-12.0 [facility] Comment on above: Performed By: #### L 500.4050, L100.0100, L501.2450 ####[facility] [address] [place], [address] Platelets (Bld) [#/Vol] 197 10*3/uL Normal 150-450 [facility] Comment on above: Performed By: #### L 500.4050, L100.0100, L501.2450 ####[facility] [address] [place], [address] RBC (Bld) [#/Vol] 3.04 10*6/uL Low 4.2-5.4 [facility] Comment on above: Performed By: #### L 500.4050, L100.0100, L501.2450 ####[facility] [address] [place], [address] RDW SD 43.1 fl Normal 35.1-43.9 [facility] Comment on above: Performed By: #### L 500.4050, L100.0100, L501.2450 ####[facility] [address] [place], [address] WBC (Bld) [#/Vol] 7.3 10*3/uL Normal 4.4-11.0 [facility] Comment on above: Performed By: #### L 500.4050, L100.0100, L501.2450 ####[facility] [address] [place], [address] Carbon dioxide, total [Moles /volume] in Central venous bloodOrdered By: Hayden Sadler on 12-03-2024 CO2 [Moles/Vol] 22.8 mmol/L 21.0-32.0 [facility] Chloride assayOrdered By: Delfin Sadler on 12-03-2024 Chloride [Moles/Vol] 100 mmol/L 98-108 [facility] Comprehensive Metabolic Prof ilon 12-03-2024 Albumin [Mass/Vol] 3.7 g/dL Normal 3.4-4.8 [facility] Comment on above: Performed By: #### L 500.4050, L100.0100, L501.2450 ####[facility] [address] [place], [address] Albumin/Globulin [Mass ratio] 1.8 {ratio} Normal 0.9-2.4 [facility] Comment on above: Performed By: #### L 500.4050, L100.0100, L501.2450 ####[facility] [address] [place], [address] ALK PHOS 104 U/L Normal 35-104 [facility] Comment on above: Performed By: #### L 500.4050, L100.0100, L501.2450 ####[facility] [address] [place], [address] ALT [Catalytic activity/Vol] 282 U/L High <=34 [facility] Comment on above: Performed By: #### L 500.4050, L100.0100, L501.2450 ####[facility] [address] [place], [address] AST [Catalytic activity/Vol] 104 U/L High <=31 [facility] Comment on above: Performed By: #### L 500.4050, L100.0100, L501.2450 ####[facility] [address] [place], [address] Bilirubin [Mass/Vol] 0.65 mg/dL Normal 0.00-1.30 [facility] Comment on above: Performed By: #### L 500.4050, L100.0100, L501.2450 ####[facility] [address] [place], [address] BUN/CRE 22.8 RATIO High 10-20 [facility] Comment on above: Performed By: #### L 500.4050, L100.0100, L501.2450 ####[facility] [address] [place], [address] Calcium [Mass/Vol] 8.8 mg/dL Normal 7.6-11.0 [facility] Comment on above: Performed By: #### L 500.4050, L100.0100, L501.2450 ####[facility] [address] [place], [address] Chloride [Moles/Vol] 100 mmol/L Normal 98-108 [facility] Comment on above: Performed By: #### L 500.4050, L100.0100, L501.2450 ####[facility] [address] [place], [address] CO2 [Moles/Vol] 22.8 mmol/L Normal 21.0-32.0 [facility] Comment on above: Performed By: #### L 500.4050, L100.0100, L501.2450 ####[facility] [address] [place], [address] Creatinine [Mass/Vol] 0.67 mg/dL Low 0.70-1.20 [facility] Comment on above: Performed By: #### L 500.4050, L100.0100, L501.2450 ####[facility] [address] [place], [address] ECRCL 39.62 ml/min Low 50-250 [facility] Comment on above: Performed By: #### L 500.4050, L100.0100, L501.2450 ####[facility] [address] [place], [address] GAP 10 Normal 5-15 [facility] Comment on above: Performed By: #### L 500.4050, L100.0100, L501.2450 ####[facility] [address] [place], [address] GFR/1.73 sq M.predicted among non-blacks MDRD (S/P/Bld) [Vol rate/Area] 88 mL/min/{1.73_m2} Normal >60 [facility] Comment on above: Result Comment: mL/m in/1.73m2 CKD-EPI Creatinine Equation (2020) Performed By: #### L 500.4050, L100.0100, L501.2450 ####[facility] [address] [place], [address] Globulin (S) [Mass/Vol] 2.1 g/dL Low 2.2-4.2 [facility] Comment on above: Performed By: #### L 500.4050, L100.0100, L501.2450 ####[facility] [address] [place], [address] Glucose [Mass/Vol] 106 mg/dL High 70-99 [facility] Comment on above: Performed By: #### L 500.4050, L100.0100, L501.2450 ####[facility] [address] [place], [address] Potassium [Moles/Vol] 3.7 mmol/L Normal 3.3-5.1 [facility] Comment on above: Performed By: #### L 500.4050, L100.0100, L501.2450 ####[facility] [address] [place], [address] Sodium [Moles/Vol] 133 mmol/L Normal 133-145 [facility] Comment on above: Performed By: #### L 500.4050, L100.0100, L501.2450 ####[facility] [address] [place], [address] T PROT 5.8 g/dL Low 5.9-8.4 [facility] Comment on above: Performed By: #### L 500.4050, L100.0100, L501.2450 ####[facility] [address] [place], [address] Urea nitrogen [Mass/Vol] 15 mg/dL Normal 4-19 [facility] Comment on above: Performed By: #### L 500.4050, L100.0100, L501.2450 ####[facility] [address] [place], [address] Emergency Department Summary on 12-03-2024 Emergency Department Summary Normal [facility] Eosinophil percentageOrdered By: Hayden Sadler on 12-03-2024 Eosinophils/100 WBC (Bld) 0.1 % 0-5 [facility] Erythrocyte distribution wid th ratioOrdered By: Hayden Sadler on 12-03-2024 Erythrocyte distribution width (RBC) [Ratio] 12.6 % 11.6-14.6 [facility] Erythrocyte distribution wid th standard deviationOrdered By: Hayden Sadler on 12-03-2024 Erythrocyte distribution width (RBC) [Ratio] 43.1 fl 35.1-43.9 [facility] Folate [Mass/volume] in Seru m or PlasmaOrdered By: Darnell Vera on 12-03-2024 Folate [Mass/Vol] 17.50 ng/mL 4.60-34.80 [facility] Comment on above: Hemolysis, Results w ill be affected, Requires Recollection. Glomerular filtration rate ( GFR) estimation/1.73 sq m using serum, plasma, or whole bOrdered By: Hayden Sadler on 12-03-2024 GFR/1.73 sq M.predicted among non-blacks MDRD (S/P/Bld) [Vol rate/Area] 88 mL/min/{1.73_m2} >60 [facility] Comment on above: mL/min/1.73m2 CKD-EP I Creatinine Equation (2020) H AND P Exam - [facility] 12-03-2024 H&P Exam - Hospitalist Normal [facility] Hematocrit Auto (Bld) [Volum e fraction]Ordered By: Hayden Sadler on 12-03-2024 Hematocrit (Bld) [Volume fraction] 28.2 % Low 37-47 [facility] Hemoglobin A1c percentageOrd ered By: Darnell Vera on 12-03-2024 HbA1c (Bld) [Mass fraction] 5.1 % <5.7 [facility] Comment on above: Normal < 5.7 % Predi abetic 5.7 - 6.4 % Diabetic >or= 6.5 % Please note range changes. Hemoglobin measurementOrdere d By: Hayden Sadler on 12-03-2024 Hemoglobin (Bld) [Mass/Vol] 10.0 g/dL Low 12.0-15.0 [facility] Immature granulocytes/100 WB C Auto (Bld)Ordered By: Hayden Sadler on 12-03-2024 Immature granulocytes/100 WBC (Bld) 0.700 % 0.0-0.9 [facility] Comment on above: IG% - Immature Granu locytes (promyelocytes, myelocytes and metamyelocytes) > 1% indicates that a LEFT SHIFT is Present. Ketones Test strip Ql (U)Ord ered By: Hayden Sadler on 12-03-2024 Ketones Ql (U) 5 mg/dl High Negative [facility] Laboratory - Chemistry and C hemistry - challengeOrdered By: Hayden Sadler on 12-03-2024 AST [Catalytic activity/Vol] 104 U/L High <32 [facility] Lipaseon 12-03-2024 Lipase [Catalytic activity/Vol] 68 U/L Normal 13-75 [facility] Comment on above: Result Comment: Merissa bah note:LIPASE revised reference range effective 22.New Lipase methodology. Expected to produce lower valuesthan the previous assay method.NEW Reference Range: 13 - 75 U/L Performed By: #### L 500.4050, L100.0100, L501.2450 ####[facility] [address] [place], [address] Lipase measurementOrdered By : Hayden Sadler on 12-03-2024 Lipase [Catalytic activity/Vol] 68 U/L 13-75 [facility] Comment on above: Please note:LIPASE r evised reference range effective 22. New Lipase methodology. Expected to produce lower values than the previous assay method. NEW Reference Range: 13 - 75 U/L MCV (mean corpuscular volume ) determinationOrdered By: Hayden Sadler on 12-03-2024 MCV (RBC) [Entitic vol] 92.8 fL 81-99 [facility] Magnesium measurement (mass/ volume)Ordered By: Darnell Vera on 12-03-2024 Magnesium (Unsp spec) [Mass/Vol] 1.9 mg/dL 1.5-2.2 [facility] Mean corpuscular hemoglobin (MCH) determinationOrdered By: Hayden Sadler on 12-03-2024 MCH (RBC) [Entitic mass] 32.9 pg High 27.0-32.0 [facility] Mean corpuscular hemoglobin concentration (MCHC) determinationOrdered By: Hayden Sadler on 12-03-2024 MCHC (RBC) [Mass/Vol] 35.5 g/dL 32-36 [facility] Mean platelet volume determi nationOrdered By: Hayden Sadler on 12-03-2024 Platelet mean volume (Bld) [Entitic vol] 10.2 fL 6.2-12.0 [facility] Microscopic analysis of urin e for red blood cells (RBC)Ordered By: Hayden Sadler on 12-03-2024 Microscopic analysis of urine for red blood cells (RBC) 0-5 SEEN /hpf 0-5 [facility] Monocyte percentageOrdered B y: Hayden Sadler on 12-03-2024 Monocytes/100 WBC (Bld) 9.6 % 0-10 [facility] Mucus LM Ql (Urine sed)Order ed By: Hayden Sadler on 12-03-2024 Mucus Ql (Urine sed) 0 SEEN /hpf [facility] Neutrophil percentageOrdered By: Hayden Sadler on 12-03-2024 Neutrophils/100 WBC (Bld) 80.3 % High 47-70 [facility] Nitrite Test strip Ql (U)Ord ered By: Hayden Sadler on 12-03-2024 Nitrite Ql (U) Positive High Negative [facility] Nucleated red blood cell per centageOrdered By: Hayden Sadler on 12-03-2024 Nucleated RBC/100 WBC (Bld) [Ratio] 0 % 0-5 [facility] Platelet countOrdered By: Delfin Sadler on 12-03-2024 Platelets (Bld) [#/Vol] 197 10*3/uL 150-450 [facility] Potassium measurement (mass/ volume)Ordered By: Hayden Sadler on 12-03-2024 Potassium (Unsp spec) [Mass/Vol] 3.7 mmol/L 3.3-5.1 [facility] Protein Test strip Ql (U)Ord ered By: Hayden Sadler on 12-03-2024 Protein Ql (U) 15 mg/dl High Negative [facility] RBC Auto (Bld) [#/Vol]Ordere d By: Hayden Sadler on 12-03-2024 RBC (Bld) [#/Vol] 3.04 10*6/uL Low 4.2-5.4 [facility] Serum creatinine measurement (mass/volume)Ordered By: Hayden Sadler on 12-03-2024 Creatinine [Mass/Vol] 0.67 mg/dL Low 0.70-1.20 [facility] Serum globulin measurementOr dered By: Hayden Sadler on 12-03-2024 Globulin (S) [Mass/Vol] 2.1 g/dL Low 2.2-4.2 [facility] Serum glucose measurement (m ass/volume)Ordered By: Hayden Sadler on 12-03-2024 Glucose [Mass/Vol] 106 mg/dL High 70-99 [facility] Serum or plasma alanine oliver otransferase (ALT) measurementOrdered By: Hayden Sadler on 12-03-2024 ALT [Catalytic activity/Vol] 282 U/L High <35 [facility] Serum or plasma albumin ena urement (mass/volume)Ordered By: Hayden Sadler on 12-03-2024 Albumin [Mass/Vol] 3.7 g/dL 3.4-4.8 [facility] Serum or plasma albumin/glob ulin mass ratioOrdered By: Hayden Sadler on 12-03-2024 Albumin/Globulin [Mass ratio] 1.8 {ratio} 0.9-2.4 [facility] Serum or plasma alkaline brenna sphatase measurementOrdered By: Hayden Sadler on 12-03-2024 ALP [Catalytic activity/Vol] 104 U/L 35-104 [facility] Serum or plasma calcium ena urement (mass/volume)Ordered By: Hayden Sadler on 12-03-2024 Calcium [Mass/Vol] 8.8 mg/dL 7.6-11.0 [facility] Serum or plasma urea nitroge n measurement (mass/volume)Ordered By: Hayden Sadler on 12-03-2024 Urea nitrogen [Mass/Vol] 15 mg/dL 4-19 [facility] Sodium levelOrdered By: Naomi Sadler on 12-03-2024 Sodium [Moles/Vol] 133 mmol/L 133-145 [facility] Squamous epithelial cells de tection in urine sediment by light microscopyOrdered By: Hayden Sadler on 12-03-2024 Epithelial cells.squamous LM Ql (Urine sed) 0 SEEN /hpf 5-10 [facility] TSH DL <= 0.005 mIU/L QnOrde red By: Darnell Vera on 12-03-2024 TSH Qn 1.500 uIU/mL 0.300-4.200 [facility] Total proteinOrdered By: Sarita Sadler on 12-03-2024 Protein [Mass/Vol] 5.8 g/dL Low 5.9-8.4 [facility] Urinalysis, Completeon 12-03 BACTERIA 3+ /hpf Normal None Seen [facility] Comment on above: Order Comment: CLEAN CATCH Performed By: #### L 400.0001 ####[facility] [address] [place], [address] RBC 0-5 SEEN Normal 0-5 [facility] Comment on above: Order Comment: CLEAN CATCH Performed By: #### L 400.0001 ####[facility] [address] [place], [address] WBC 0-5 SEEN Normal 0-5 [facility] Comment on above: Order Comment: CLEAN CATCH Performed By: #### L 400.0001 ####[facility] [address] [place], [address] EPI,SQUAMOUS 0 SEEN Normal 5-10 [facility] Comment on above: Order Comment: CLEAN CATCH Performed By: #### L 400.0001 ####[facility] [address] [place], [address] Mucus Ql (Urine sed) 0 SEEN Normal [facility] Comment on above: Order Comment: CLEAN CATCH Performed By: #### L 400.0001 ####[facility] [address] [place], [address] Urine clarityOrdered By: Sarita Sadler on 12-03-2024 Clarity (U) Clear Clear [facility] Urine color determinationOrd ered By: Hayden Sadler on 12-03-2024 Color (U) Straw Yellow [facility] Urine cultureOrdered By: Sarita Sadler on 12-03-2024 Bacteria identified Cx Nom (U) Pseudomonas aeruginosa Abnormal [facility] Bacteria identified Cx Nom (U) Enterococcus faecalis Abnormal [facility] Urine glucose detectionOrder ed By: Hayden Sadler on 12-03-2024 Glucose Ql (U) Normal mg/dl Normal [facility] Urine leukocyte esterase det ection by dipstickOrdered By: Hayden Sadler on 12-03-2024 Leukocyte esterase Test strip Ql (U) Negative Negative [facility] Urine pHOrdered By: Hayden briscoe on 12-03-2024 pH (U) 7.0 [pH] 5.0 - 8.0 [facility] Urine sediment bacteria coun t by microscopy (number/high power field)Ordered By: Hayden Sadler on 12-03-2024 Bacteria LM.HPF (Urine sed) [#/Area] 3 /[HPF] None Seen [facility] Urine specific gravity measu rementOrdered By: Hayden Sadler on 12-03-2024 Specific gravity (U) [Rel density] 1.010 1.002-1.030 [facility] Urine urobilinogen measureme ntOrdered By: Hayden Sadler on 12-03-2024 Urobilinogen Ql (U) Normal mg/dl Normal [facility] Vitamin B12 ser/plasOrdered By: Darnell Vera on 12-03-2024 Cobalamin (Vitamin B12) [Mass/Vol] 2668 pg/mL High 180-914 [facility] White blood cell (WBC) count Ordered By: Hayden Sadler on 12-03-2024 WBC (Bld) [#/Vol] 7.3 10*3/uL 4.4-11.0 [facility] White blood cell countOrdere d By: Hadyen Sadler on 12-03-2024 White blood cell count 0-5 SEEN /hpf 0-5 [facility] Anion gap in Serum or Plasma Ordered By: Jo-Ann Arias on 11-29-2024 Anion gap [Moles/Vol] 10 mmol/L 5-15 [facility] BUN/creatinine ratioOrdered By: Jo-Ann Arias on 11-29-2024 Urea nitrogen/Creatinine [Mass ratio] 12.2 mg/mg 10- [facility] Basic Metabolic Profile (BMP )on 11-29-2024 BUN/CRE 12.2 RATIO Normal - [facility] Comment on above: Performed By: #### L 500.2500 ####[facility] [address] [place], [address] Calcium [Mass/Vol] 8.8 mg/dL Normal 7.6-11.0 [facility] Comment on above: Performed By: #### L 500.2500 ####[facility] [address], [address] Chloride [Moles/Vol] 101 mmol/L Normal 98-108 [facility] Comment on above: Performed By: #### L 500.2500 ####[facility] [address] [place], [address] CO2 [Moles/Vol] 23.5 mmol/L Normal 21.0-32.0 [facility] Comment on above: Performed By: #### L 500.2500 ####[facility] [address] [place], [address] Creatinine [Mass/Vol] 0.88 mg/dL Normal 0.70-1.20 [facility] Comment on above: Performed By: #### L 500.2500 ####[facility] [address] [place], [address] ECRCL 36.01 ml/min Low 50-250 [facility] Comment on above: Performed By: #### L 500.2500 ####[facility] [address] [place], [address] GAP 10 Normal 5-15 [facility] Comment on above: Performed By: #### L 500.2500 ####[facility] [address] [place], [address] GFR/1.73 sq M.predicted among non-blacks MDRD (S/P/Bld) [Vol rate/Area] 66 mL/min/{1.73_m2} Normal >60 [facility] Comment on above: Result Comment: mL/m in/1.73m2 CKD-EPI Creatinine Equation (2020) Performed By: #### L 500.2500 ####[facility] [address] [place], [address] Glucose [Mass/Vol] 114 mg/dL High 70-99 [facility] Comment on above: Performed By: #### L 500.2500 ####[facility] [address] [place], [address] Potassium [Moles/Vol] 4.0 mmol/L Normal 3.3-5.1 [facility] Comment on above: Performed By: #### L 500.2500 ####[facility] [address] [place], [address] Sodium [Moles/Vol] 135 mmol/L Normal 133-145 [facility] Comment on above: Performed By: #### L 500.2500 ####[facility] [address] [place], [address] Urea nitrogen [Mass/Vol] 11 mg/dL Normal 4-19 [facility] Comment on above: Performed By: #### L 500.2500 ####[facility] [address] [place], [address] Carbon dioxide, total [Moles /volume] in Central venous bloodOrdered By: Jo-Ann Arias on 11-29-2024 CO2 [Moles/Vol] 23.5 mmol/L 21.0-32.0 [facility] Chloride assayOrdered By: Morro Arias on 11-29-2024 Chloride [Moles/Vol] 101 mmol/L 98-108 [facility] Glomerular filtration rate ( GFR) estimation/1.73 sq m using serum, plasma, or whole bOrdered By: Jo-Ann Arias on 11-29-2024 GFR/1.73 sq M.predicted among non-blacks MDRD (S/P/Bld) [Vol rate/Area] 66 mL/min/{1.73_m2} >60 [facility] Comment on above: mL/min/1.73m2 CKD-EP I Creatinine Equation (2020) Potassium measurement (mass/ volume)Ordered By: Jo-Ann Arias on 11-29-2024 Potassium (Unsp spec) [Mass/Vol] 4.0 mmol/L 3.3-5.1 [facility] Serum creatinine measurement (mass/volume)Ordered By: Jo-Ann Hsiehjenny on 11-29-2024 Creatinine [Mass/Vol] 0.88 mg/dL 0.70-1.20 [facility] Serum glucose measurement (m ass/volume)Ordered By: Jo-Ann Hsiehjenny on 11-29-2024 Glucose [Mass/Vol] 114 mg/dL High 70-99 [facility] Serum or plasma calcium ena urement (mass/volume)Ordered By: Jo-Ann Hsiehjenny on 11-29-2024 Calcium [Mass/Vol] 8.8 mg/dL 7.6-11.0 [facility] Serum or plasma urea nitroge n measurement (mass/volume)Ordered By: Jo-Ann Hsiehjenny on 11-29-2024 Urea nitrogen [Mass/Vol] 11 mg/dL 4-19 [facility] Sodium levelOrdered By: Jo-Ann Hsiehjenny on 11-29-2024 Sodium [Moles/Vol] 135 mmol/L 133-145 [facility] Basic Metabolic Profile (BMP )on 11-28-2024 BUN/CRE 12.9 RATIO Normal 10-20 [facility] Comment on above: Performed By: #### L 500.2500 ####[facility] [address] [place], [address] Calcium [Mass/Vol] 8.6 mg/dL Normal 7.6-11.0 [facility] Comment on above: Performed By: #### L 500.2500 ####[facility] [address] [place], [address] Chloride [Moles/Vol] 92 mmol/L Low 98-108 [facility] Comment on above: Performed By: #### L 500.2500 ####[facility] [address] [place], [address] CO2 [Moles/Vol] 23.2 mmol/L Normal 21.0-32.0 [facility] Comment on above: Performed By: #### L 500.2500 ####[facility] [address] [place], [address] Creatinine [Mass/Vol] 0.77 mg/dL Normal 0.70-1.20 [facility] Comment on above: Performed By: #### L 500.2500 ####[facility] [address] [place], [address] ECRCL 39.62 ml/min Low 50-250 [facility] Comment on above: Performed By: #### L 500.2500 ####[facility] [address] [place], [address] GAP 10 Normal 5-15 [facility] Comment on above: Performed By: #### L 500.2500 ####[facility] [address] [place], [address] GFR/1.73 sq M.predicted among non-blacks MDRD (S/P/Bld) [Vol rate/Area] 77 mL/min/{1.73_m2} Normal >60 [facility] Comment on above: Result Comment: mL/m in/1.73m2 CKD-EPI Creatinine Equation (2020) Performed By: #### L 500.2500 ####[facility] [address] [place], [address] Glucose [Mass/Vol] 95 mg/dL Normal 70-99 [facility] Comment on above: Performed By: #### L 500.2500 ####[facility] [address] [place], [address] Potassium [Moles/Vol] 3.8 mmol/L Normal 3.3-5.1 [facility] Comment on above: Performed By: #### L 500.2500 ####[facility] [address] [place], [address] Sodium [Moles/Vol] 125 mmol/L Low 133-145 [facility] Comment on above: Performed By: #### L 500.2500 ####[facility] [address] [place], [address] Urea nitrogen [Mass/Vol] 10 mg/dL Normal 4-19 [facility] Comment on above: Performed By: #### L 500.2500 ####[facility] [address] [place], [address] Osmolality urOrdered By: Alyssa Arias on 11-28-2024 Osmolality (U) [Osmolality] 519 mOsm/KG >50 [facility] Comment on above: Normal Urine Referen ce Ranges Random: 50 - 1200 mOsm/kg H20 depending on fluid intake Random: >850 mOsm/kg after 12 hour fluid restriction 24 hour: ~300 - 900 mOsm/kg H2O Osmolality, Serumon 11-29-19 25 OSMOLALITY,SER 281 mOsm/KG Normal 280-301 [facility] Comment on above: Performed By: #### L 501.7300 ####[facility] [address] [place], [address] Osmolality, Urineon 11-29-19 25 OSMOLALITY,UR 519 mOsm/KG Normal [facility] Comment on above: Result Comment: Norm al Urine Reference Ranges Random: 50 - 1200 mOsm/kg H20 depending on fluid intake Random: >850 mOsm/kg after 12 hour fluid restriction 24 hour: 300 - 900 mOsm/kg H2O Performed By: #### L 501.7400 ####[facility] [address] [place], [address] Renal Profileon 11-28-2024 Albumin [Mass/Vol] 3.6 g/dL Normal 3.4-4.8 [facility] Comment on above: Performed By: #### L 500.3600 ####[facility] [address] [place], [address] BUN/CRE 13.0 RATIO Normal 10-20 [facility] Comment on above: Performed By: #### L 500.3600 ####[facility] [address] [place], [address] Calcium [Mass/Vol] 8.9 mg/dL Normal 7.6-11.0 [facility] Comment on above: Performed By: #### L 500.3600 ####[facility] [address] [place], [address] Chloride [Moles/Vol] 92 mmol/L Low 98-108 [facility] Comment on above: Performed By: #### L 500.3600 ####[facility] [address] [place], [address] CO2 [Moles/Vol] 22.8 mmol/L Normal 21.0-32.0 [facility] Comment on above: Performed By: #### L 500.3600 ####[facility] [address] [place], [address] Creatinine [Mass/Vol] 0.75 mg/dL Normal 0.70-1.20 [facility] Comment on above: Performed By: #### L 500.3600 ####[facility] [address] [place], [address] ECRCL 39.62 ml/min Low 50-250 [facility] Comment on above: Performed By: #### L 500.3600 ####[facility] [address] [place], [address] GAP 11 Normal 5-15 [facility] Comment on above: Performed By: #### L 500.3600 ####[facility] [address] [place], [address] GFR/1.73 sq M.predicted among non-blacks MDRD (S/P/Bld) [Vol rate/Area] 80 mL/min/{1.73_m2} Normal >60 [facility] Comment on above: Result Comment: mL/m in/1.73m2 CKD-EPI Creatinine Equation (2020) Performed By: #### L 500.3600 ####[facility] [address] [place], [address] Glucose [Mass/Vol] 94 mg/dL Normal 70-99 [facility] Comment on above: Performed By: #### L 500.3600 ####[facility] [address] [place], [address] Phosphate [Mass/Vol] 3.5 mg/dL Normal 2.7-4.5 [facility] Comment on above: Performed By: #### L 500.3600 ####[facility] [address] [place], [address] Potassium [Moles/Vol] 3.8 mmol/L Normal 3.3-5.1 [facility] Comment on above: Performed By: #### L 500.3600 ####[facility] [address] [place], [address] Sodium [Moles/Vol] 126 mmol/L Low 133-145 [facility] Comment on above: Performed By: #### L 500.3600 ####[facility] [address] [place], [address] Urea nitrogen [Mass/Vol] 10 mg/dL Normal 4-19 [facility] Comment on above: Performed By: #### L 500.3600 ####[facility] [address] [place], [address] Serum or plasma albumin ena urement (mass/volume)Ordered By: Jo-Ann Arias on 11-28-2024 Albumin [Mass/Vol] 3.6 g/dL 3.4-4.8 [facility] Urine Cultureon 11-28-2024 URC Normal [facility] Comment on above: Performed By: #### M 100.2200 ####[facility] [address] [place], [address] Urine Sodiumon 11-28-2024 Sodium (U) [Moles/Vol] 48 mmol/L Normal Not Establ. [facility] Comment on above: Performed By: #### L 501.5500 ####[facility] [address] [place], [address] Urine sodium measurement (mo les/volume)Ordered By: Jo-Ann Hugo on 11-28-2024 Sodium (U) [Moles/Vol] 48 mmol/L Not Establ. [facility] Basic Metabolic Profile (BMP )on 11-27-2024 BUN/CRE 13.8 RATIO Normal 10-20 [facility] Comment on above: Performed By: #### L 100.0500, L500.2500 ####[facility] [address] [place], [address] Calcium [Mass/Vol] 8.7 mg/dL Normal 7.6-11.0 [facility] Comment on above: Performed By: #### L 100.0500, L500.2500 ####[facility] [address], [address] Chloride [Moles/Vol] 93 mmol/L Low 98-108 [facility] Comment on above: Performed By: #### L 100.0500, L500.2500 ####[facility] [address] [place], [address] CO2 [Moles/Vol] 22.7 mmol/L Normal 21.0-32.0 [facility] Comment on above: Performed By: #### L 100.0500, L500.2500 ####[facility] [address] [place], [address] Creatinine [Mass/Vol] 0.77 mg/dL Normal 0.70-1.20 [facility] Comment on above: Performed By: #### L 100.0500, L500.2500 ####[facility] [address] [place], [address] ECRCL 39.62 ml/min Low 50-250 [facility] Comment on above: Performed By: #### L 100.0500, L500.2500 ####[facility] [address] [place], [address] GAP 11 Normal 5-15 [facility] Comment on above: Performed By: #### L 100.0500, L500.2500 ####[facility] [address] [place], [address] GFR/1.73 sq M.predicted among non-blacks MDRD (S/P/Bld) [Vol rate/Area] 78 mL/min/{1.73_m2} Normal >60 [facility] Comment on above: Result Comment: mL/m in/1.73m2 CKD-EPI Creatinine Equation (2020) Performed By: #### L 100.0500, L500.2500 ####[facility] [address] [place], [address] Glucose [Mass/Vol] 93 mg/dL Normal 70-99 [facility] Comment on above: Performed By: #### L 100.0500, L500.2500 ####[facility] [address] [place], [address] Potassium [Moles/Vol] 3.8 mmol/L Normal 3.3-5.1 [facility] Comment on above: Performed By: #### L 100.0500, L500.2500 ####[facility] [address] [place], [address] Sodium [Moles/Vol] 127 mmol/L Low 133-145 [facility] Comment on above: Performed By: #### L 100.0500, L500.2500 ####[facility] [address] [place], [address] Urea nitrogen [Mass/Vol] 11 mg/dL Normal 4-19 [facility] Comment on above: Performed By: #### L 100.0500, L500.2500 ####[facility] [address] [place], [address] CBC-Complete Blood Cnt No Di ffon 11-27-2024 Erythrocyte distribution width (RBC) [Ratio] 12.5 % Normal 11.6-14.6 [facility] Comment on above: Performed By: #### L 100.0500, L500.2500 ####[facility] [address] [place], [address] Hematocrit (Bld) [Volume fraction] 27.3 % Low 37-47 [facility] Comment on above: Performed By: #### L 100.0500, L500.2500 ####[facility] [address] [place], [address] Hemoglobin (Bld) [Mass/Vol] 9.9 g/dL Low 12.0-15.0 [facility] Comment on above: Performed By: #### L 100.0500, L500.2500 ####[facility] [address] [place], [address] MCH (RBC) [Entitic mass] 32.6 pg High 27.0-32.0 [facility] Comment on above: Performed By: #### L 100.0500, L500.2500 ####[facility] [address] [place], [address] MCHC (RBC) [Mass/Vol] 36.3 g/dL High 32-36 [facility] Comment on above: Performed By: #### L 100.0500, L500.2500 ####[facility] [address] [place], [address] MCV (RBC) [Entitic vol] 89.8 fL Normal 81-99 [facility] Comment on above: Performed By: #### L 100.0500, L500.2500 ####[facility] [address] [place], [address] Platelet mean volume (Bld) [Entitic vol] 10.2 fL Normal 6.2-12.0 [facility] Comment on above: Performed By: #### L 100.0500, L500.2500 ####[facility] [address] [place], [address] Platelets (Bld) [#/Vol] 226 10*3/uL Normal 150-450 [facility] Comment on above: Performed By: #### L 100.0500, L500.2500 ####[facility] [address] [place], [address] RBC (Bld) [#/Vol] 3.04 10*6/uL Low 4.2-5.4 [facility] Comment on above: Performed By: #### L 100.0500, L500.2500 ####[facility] [address] [place], [address] RDW SD 40.9 fl Normal 35.1-43.9 [facility] Comment on above: Performed By: #### L 100.0500, L500.2500 ####[facility] [address] [place], [address] WBC (Bld) [#/Vol] 8.6 10*3/uL Normal 4.4-11.0 [facility] Comment on above: Performed By: #### L 100.0500, L500.2500 ####[facility] [address] [place], [address] Discharge Instructionon 11-05 Discharge Instruction Normal [facility] Erythrocyte distribution wid th ratioOrdered By: Jo-Ann Arias on 11-27-2024 Erythrocyte distribution width (RBC) [Ratio] 12.5 % 11.6-14.6 [facility] Erythrocyte distribution wid th standard deviationOrdered By: Jo-Ann Arias on 11-27-2024 Erythrocyte distribution width (RBC) [Ratio] 40.9 fl 35.1-43.9 [facility] Hematocrit Auto (Bld) [Volum e fraction]Ordered By: Jo-Ann Hugo on 11-27-2024 Hematocrit (Bld) [Volume fraction] 27.3 % Low 37-47 [facility] Hemoglobin measurementOrdere d By: Jo-Ann Arias on 11-27-2024 Hemoglobin (Bld) [Mass/Vol] 9.9 g/dL Low 12.0-15.0 [facility] MCV (mean corpuscular volume ) determinationOrdered By: Jo-Ann Arias on 11-27-2024 MCV (RBC) [Entitic vol] 89.8 fL 81-99 [facility] Mean corpuscular hemoglobin (MCH) determinationOrdered By: Jo-Ann Arias on 11-27-2024 MCH (RBC) [Entitic mass] 32.6 pg High 27.0-32.0 [facility] Mean corpuscular hemoglobin concentration (MCHC) determinationOrdered By: Jo-Ann Arias on 11-27-2024 MCHC (RBC) [Mass/Vol] 36.3 g/dL High 32-36 [facility] Mean platelet volume determi nationOrdered By: Jo-Ann Arias on 11-27-2024 Platelet mean volume (Bld) [Entitic vol] 10.2 fL 6.2-12.0 [facility] Platelet countOrdered By: Morro Arias on 11-27-2024 Platelets (Bld) [#/Vol] 226 10*3/uL 150-450 [facility] RBC Auto (Bld) [#/Vol]Ordere d By: Jo-Ann Arias on 11-27-2024 RBC (Bld) [#/Vol] 3.04 10*6/uL Low 4.2-5.4 [facility] White blood cell (WBC) count Ordered By: Jo-Ann Arias on 11-27-2024 WBC (Bld) [#/Vol] 8.6 10*3/uL 4.4-11.0 [facility] Basic Metabolic Profile (BMP )on 11-26-2024 BUN/CRE 12.8 RATIO Normal 10-20 [facility] Comment on above: Performed By: #### L 500.2500 ####[facility] [address] [place], [address] Calcium [Mass/Vol] 8.8 mg/dL Normal 7.6-11.0 [facility] Comment on above: Performed By: #### L 500.2500 ####[facility] [address], [address] Chloride [Moles/Vol] 95 mmol/L Low 98-108 [facility] Comment on above: Performed By: #### L 500.2500 ####[facility] [address] [place], [address] CO2 [Moles/Vol] 22.9 mmol/L Normal 21.0-32.0 [facility] Comment on above: Performed By: #### L 500.2500 ####[facility] [address] [place], [address] Creatinine [Mass/Vol] 0.70 mg/dL Normal 0.70-1.20 [facility] Comment on above: Performed By: #### L 500.2500 ####[facility] [address] [place], [address] ECRCL 39.62 ml/min Low 50-250 [facility] Comment on above: Performed By: #### L 500.2500 ####[facility] [address] [place], [address] GAP 10 Normal 5-15 [facility] Comment on above: Performed By: #### L 500.2500 ####[facility] [address] [place], [address] GFR/1.73 sq M.predicted among non-blacks MDRD (S/P/Bld) [Vol rate/Area] 87 mL/min/{1.73_m2} Normal >60 [facility] Comment on above: Result Comment: mL/m in/1.73m2 CKD-EPI Creatinine Equation (2021) Performed By: #### L 500.2500 ####[facility] [address] [place], [address] Glucose [Mass/Vol] 101 mg/dL High 70-99 [facility] Comment on above: Performed By: #### L 500.2500 ####[facility] [address] [place], [address] Potassium [Moles/Vol] 4.1 mmol/L Normal 3.3-5.1 [facility] Comment on above: Performed By: #### L 500.2500 ####[facility] [address] [place], [address] Sodium [Moles/Vol] 127 mmol/L Low 133-145 [facility] Comment on above: Performed By: #### L 500.2500 ####[facility] [address] [place], [address] Urea nitrogen [Mass/Vol] 9 mg/dL Normal 4-19 [facility] Comment on above: Performed By: #### L 500.2500 ####[facility] [address] [place], [address] Urine cultureOrdered By: Alyssa Arias on 11-25-2024 Bacteria identified Cx Nom (U) Pseudomonas aeruginosa Abnormal [facility] Basic Metabolic Profile (BMP )on 11-24-2024 BUN/CRE 12.6 RATIO Normal 10-20 [facility] Comment on above: Performed By: #### L 500.2500 ####[facility] [address] [place], [address] Calcium [Mass/Vol] 8.7 mg/dL Normal 7.6-11.0 [facility] Comment on above: Performed By: #### L 500.2500 ####[facility] [address] [place], [address] Chloride [Moles/Vol] 97 mmol/L Low 98-108 [facility] Comment on above: Performed By: #### L 500.2500 ####[facility] [address] [place], [address] CO2 [Moles/Vol] 20.7 mmol/L Low 21.0-32.0 [facility] Comment on above: Performed By: #### L 500.2500 ####[facility] [address] [place], [address] Creatinine [Mass/Vol] 0.68 mg/dL Low 0.70-1.20 [facility] Comment on above: Performed By: #### L 500.2500 ####[facility] [address] [place], [address] ECRCL 39.62 ml/min Low 50-250 [facility] Comment on above: Performed By: #### L 500.2500 ####[facility] [address] [place], [address] GAP 9 Normal 5-15 [facility] Comment on above: Performed By: #### L 500.2500 ####[facility] [address] [place], [address] GFR/1.73 sq M.predicted among non-blacks MDRD (S/P/Bld) [Vol rate/Area] 88 mL/min/{1.73_m2} Normal >60 [facility] Comment on above: Result Comment: mL/m in/1.73m2 CKD-EPI Creatinine Equation (2020) Performed By: #### L 500.2500 ####[facility] [address] [place], [address] Glucose [Mass/Vol] 92 mg/dL Normal 70-99 [facility] Comment on above: Performed By: #### L 500.2500 ####[facility] [address] [place], [address] Potassium [Moles/Vol] 3.9 mmol/L Normal 3.3-5.1 [facility] Comment on above: Performed By: #### L 500.2500 ####[facility] [address] [place], [place], [address] Sodium [Moles/Vol] 127 mmol/L Low 133-145 [facility] Comment on above: Performed By: #### L 500.2500 ####[facility] [address] [place], [place], [address] Urea nitrogen [Mass/Vol] 9 mg/dL Normal 4-19 [facility] Comment on above: Performed By: #### L 500.2500 ####[facility] [address] [place], [address] Bilirubin Test strip Ql (U)O rdered By: Jo-Ann Arias on 11-24-2024 Bilirubin Ql (U) Negative Negative [facility] Ketones Test strip Ql (U)Ord ered By: Jo-Ann Arias on 11-24-2024 Ketones Ql (U) Negative Negative [facility] Microscopic analysis of urin e for red blood cells (RBC)Ordered By: Jo-Ann Arias on 11-24-2024 Microscopic analysis of urine for red blood cells (RBC) 0-5 SEEN /hpf 0-5 [facility] Mucus LM Ql (Urine sed)Order ed By: Jo-Ann Arias on 11-24-2024 Mucus Ql (Urine sed) 0 SEEN /hpf [facility] Protein Test strip Ql (U)Ord ered By: Jo-Ann Arias on 11-24-2024 Protein Ql (U) 15 mg/dl High Negative [facility] Squamous epithelial cells de tection in urine sediment by light microscopyOrdered By: Jo-Ann Arias on 11-24-2024 Epithelial cells.squamous LM Ql (Urine sed) 0 SEEN /hpf 5-10 [facility] Urinalysis, Completeon 11-24 RBC 0-5 SEEN Normal 0-5 [facility] Comment on above: Order Comment: MARILYN TER SPECIMEN Performed By: #### L 400.0001 ####[facility] [address] [place], [address] WBC 5-10 SEEN Normal 0-5 [facility] Comment on above: Order Comment: MARILYN TER SPECIMEN Performed By: #### L 400.0001 ####[facility] [address] [place], [address] BILIRUBIN URINE Negative Normal Negative [facility] Comment on above: Order Comment: MARILYN TER SPECIMEN Performed By: #### L 400.0001 ####[facility] [address] [place], [address] GLUCOSE, UR Normal Normal Normal [facility] Comment on above: Order Comment: MARILYN TER SPECIMEN Performed By: #### L 400.0001 ####[facility] [address] [place], [address] KETONE UR Negative Normal Negative [facility] Comment on above: Order Comment: MARILYN TER SPECIMEN Performed By: #### L 400.0001 ####[facility] [address] [place], [address] LEUK ESTERASE 100 /ul Abnormal Negative [facility] Comment on above: Order Comment: MARILYN TER SPECIMEN Performed By: #### L 400.0001 ####[facility] [address] [place], [address] OCCULT BLOOD-UR Negative Normal Negative [facility] Comment on above: Order Comment: MARILYN TER SPECIMEN Performed By: #### L 400.0001 ####[facility] [address] [place], [address] pH UR 6.0 Normal 5.0 - 8.0 [facility] Comment on above: Order Comment: MARILYN TER SPECIMEN Performed By: #### L 400.0001 ####[facility] [address] [place], [address] PROT DIPSTX 15 mg/dl Abnormal Negative [facility] Comment on above: Order Comment: MARILYN TER SPECIMEN Performed By: #### L 400.0001 ####[facility] [address] [place], [address] SP.GR. DIPSTX 1.020 Normal 1.002-1.030 [facility] Comment on above: Order Comment: MARILYN TER SPECIMEN Performed By: #### L 400.0001 ####[facility] [address] [place], [address] UROBILI Normal Normal Normal [facility] Comment on above: Order Comment: MARILYN TER SPECIMEN Performed By: #### L 400.0001 ####[facility] [address] [place], [address] BACTERIA 0 SEEN Normal None Seen [facility] Comment on above: Order Comment: MARILYN TER SPECIMEN Performed By: #### L 400.0001 ####[facility] [address] [place], [address] EPI,SQUAMOUS 0 SEEN Normal 5-10 [facility] Comment on above: Order Comment: MARILYN TER SPECIMEN Performed By: #### L 400.0001 ####[facility] [address] [place], [address] Mucus Ql (Urine sed) 0 SEEN Normal [facility] Comment on above: Order Comment: MARILYN TER SPECIMEN Performed By: #### L 400.0001 ####[facility] [address] [place], [address] Urine clarityOrdered By: Alyssa Arias on 11-24-2024 Clarity (U) Clear Normal Clear [facility] Comment on above: Order Comment: MARILYN TER SPECIMEN Performed By: #### L 400.0001 ####[facility] [address] [place], [address] Urine color determinationOrd ered By: Jo-Ann Arias on 11-24-2024 Color (U) Yellow Normal Yellow [facility] Comment on above: Order Comment: MARILYN TER SPECIMEN Performed By: #### L 400.0001 ####[facility] [address] [place], [place], [id number] Urine glucose detectionOrder ed By: Jo-Ann Hugo on 11-24-2024 Glucose Ql (U) Normal mg/dl Normal [facility] Urine leukocyte esterase det ection by dipstickOrdered By: Jo-Ann Hugo on 11-24-2024 Leukocyte esterase Test strip Ql (U) 100 /ul High Negative [facility] Urine nitrite test by dipsti ckOrdered By: Jo-Ann Arias on 11-24-2024 Nitrite Ql (U) Negative Normal Negative [facility] Comment on above: Order Comment: MARILYN TER SPECIMEN Performed By: #### L 400.0001 ####[facility] [address] [place], [address] Urine pHOrdered By: Jo-Ann baker on 11-24-2024 pH (U) 6.0 [pH] 5.0 - 8.0 [facility] Urine sediment bacteria coun t by microscopy (number/high power field)Ordered By: Jo-Ann Arias on 11-24-2024 Bacteria LM.HPF (Urine sed) [#/Area] 0 /[HPF] None Seen [facility] Urine specific gravity measu rementOrdered By: Jo-Ann Arias on 11-24-2024 Specific gravity (U) [Rel density] 1.020 1.002-1.030 [facility] Urine urobilinogen measureme ntOrdered By: Jo-Ann Arias on 11-24-2024 Urobilinogen Ql (U) Normal mg/dl Normal [facility] White blood cell countOrdere d By: Jo-Ann Arias on 11-24-2024 White blood cell count 5-10 SEEN /hpf 0-5 [facility] Basic Metabolic Profile (BMP )on 11-22-2024 BUN/CRE 14.8 RATIO Normal 10-20 [facility] Comment on above: Performed By: #### L 500.2500 ####[facility] [address] [place], [address] Calcium [Mass/Vol] 8.8 mg/dL Normal 7.6-11.0 [facility] Comment on above: Performed By: #### L 500.2500 ####[facility] [address] [place], [address] Chloride [Moles/Vol] 98 mmol/L Normal 98-108 [facility] Comment on above: Performed By: #### L 500.2500 ####[facility] [address] [place], [address] CO2 [Moles/Vol] 21.4 mmol/L Normal 21.0-32.0 [facility] Comment on above: Performed By: #### L 500.2500 ####[facility] [address] [place], [address] Creatinine [Mass/Vol] 0.76 mg/dL Normal 0.70-1.20 [facility] Comment on above: Performed By: #### L 500.2500 ####[facility] [address] [place], [address] ECRCL 39.62 ml/min Low 50-250 [facility] Comment on above: Performed By: #### L 500.2500 ####[facility] [address] [place], [address] GAP 10 Normal 5-15 [facility] Comment on above: Performed By: #### L 500.2500 ####[facility] [address] [place], [address] GFR/1.73 sq M.predicted among non-blacks MDRD (S/P/Bld) [Vol rate/Area] 79 mL/min/{1.73_m2} Normal >60 [facility] Comment on above: Result Comment: mL/m in/1.73m2 CKD-EPI Creatinine Equation (2020) Performed By: #### L 500.2500 ####[facility] [address] [place], [address] Glucose [Mass/Vol] 95 mg/dL Normal 70-99 [facility] Comment on above: Performed By: #### L 500.2500 ####[facility] [address] [place], [address] Potassium [Moles/Vol] 4.3 mmol/L Normal 3.3-5.1 [facility] Comment on above: Performed By: #### L 500.2500 ####[facility] [address] [place], [address] Sodium [Moles/Vol] 129 mmol/L Low 133-145 [facility] Comment on above: Performed By: #### L 500.2500 ####[facility] [address] [place], [address] Urea nitrogen [Mass/Vol] 11 mg/dL Normal 4-19 [facility] Comment on above: Performed By: #### L 500.2500 ####[facility] [address] [place], [address] Basic Metabolic Profile (BMP )on 11-19-2024 BUN/CRE 32.5 RATIO High 10-20 [facility] Comment on above: Performed By: #### L 100.0600, L500.2500 ####[facility] [address] [place], [address] Calcium [Mass/Vol] 9.2 mg/dL Normal 7.6-11.0 [facility] Comment on above: Performed By: #### L 100.0600, L500.2500 ####[facility] [address] [place], [address] Chloride [Moles/Vol] 103 mmol/L Normal 98-108 [facility] Comment on above: Performed By: #### L 100.0600, L500.2500 ####[facility] [address] [place], [address] CO2 [Moles/Vol] 20.4 mmol/L Low 21.0-32.0 [facility] Comment on above: Performed By: #### L 100.0600, L500.2500 ####[facility] [address] [place], [address] Creatinine [Mass/Vol] 0.84 mg/dL Normal 0.70-1.20 [facility] Comment on above: Performed By: #### L 100.0600, L500.2500 ####[facility] [address] [place], [address] ECRCL 37.73 ml/min Low 50-250 [facility] Comment on above: Performed By: #### L 100.0600, L500.2500 ####[facility] [address] [place], [address] GAP 11 Normal 5-15 [facility] Comment on above: Performed By: #### L 100.0600, L500.2500 ####[facility] [address] [place], [address] GFR/1.73 sq M.predicted among non-blacks MDRD (S/P/Bld) [Vol rate/Area] 70 mL/min/{1.73_m2} Normal >60 [facility] Comment on above: Result Comment: mL/m in/1.73m2 CKD-EPI Creatinine Equation (2020) Performed By: #### L 100.0600, L500.2500 ####[facility] [address] [place], [address] Glucose [Mass/Vol] 138 mg/dL High 70-99 [facility] Comment on above: Performed By: #### L 100.0600, L500.2500 ####[facility] [address] [place], [address] Potassium [Moles/Vol] 4.3 mmol/L Normal 3.3-5.1 [facility] Comment on above: Performed By: #### L 100.0600, L500.2500 ####[facility] [address] [place], [address] Sodium [Moles/Vol] 134 mmol/L Normal 133-145 [facility] Comment on above: Performed By: #### L 100.0600, L500.2500 ####[facility] [address] [place], [address] Urea nitrogen [Mass/Vol] 27 mg/dL High 4-19 [facility] Comment on above: Performed By: #### L 100.0600, L500.2500 ####[facility] [address] [place], [address] HH, Hemoglobin AND Hematocri ton 11-19-2024 Hematocrit (Bld) [Volume fraction] 30.9 % Low 37-47 [facility] Comment on above: Performed By: #### L 100.0600, L500.2500 ####[facility] [address] [place], [address] Hemoglobin (Bld) [Mass/Vol] 10.7 g/dL Low 12.0-15.0 [facility] Comment on above: Performed By: #### L 100.0600, L500.2500 ####[facility] [address] [place], [address] Basic Metabolic Profile (BMP )on 11-18-2024 BUN/CRE 33.7 RATIO High 10-20 [facility] Comment on above: Performed By: #### L 500.2500 ####[facility] [address] [place], [address] Calcium [Mass/Vol] 8.9 mg/dL Normal 7.6-11.0 [facility] Comment on above: Performed By: #### L 500.2500 ####[facility] [address] [place], [address] Chloride [Moles/Vol] 104 mmol/L Normal 98-108 [facility] Comment on above: Performed By: #### L 500.2500 ####[facility] [address] [place], [address] CO2 [Moles/Vol] 20.1 mmol/L Low 21.0-32.0 [facility] Comment on above: Performed By: #### L 500.2500 ####[facility] [address] [place], [address] Creatinine [Mass/Vol] 0.94 mg/dL Normal 0.70-1.20 [facility] Comment on above: Performed By: #### L 500.2500 ####[facility] [address] [place], [address] ECRCL 34.29 ml/min Low 50-250 [facility] Comment on above: Performed By: #### L 500.2500 ####[facility] [address] [place], [address] GAP 10 Normal 5-15 [facility] Comment on above: Performed By: #### L 500.2500 ####[facility] [address] [place], [address] GFR/1.73 sq M.predicted among non-blacks MDRD (S/P/Bld) [Vol rate/Area] 61 mL/min/{1.73_m2} Normal >60 [facility] Comment on above: Result Comment: mL/m in/1.73m2 CKD-EPI Creatinine Equation (2020) Performed By: #### L 500.2500 ####[facility] [address] [place], [address] Glucose [Mass/Vol] 101 mg/dL High 70-99 [facility] Comment on above: Performed By: #### L 500.2500 ####[facility] [address] [place], [address] Potassium [Moles/Vol] 4.3 mmol/L Normal 3.3-5.1 [facility] Comment on above: Performed By: #### L 500.2500 ####[facility] [address] [place], [address] Sodium [Moles/Vol] 134 mmol/L Normal 133-145 [facility] Comment on above: Performed By: #### L 500.2500 ####[facility] [address] [place], [address] Urea nitrogen [Mass/Vol] 32 mg/dL High 4-19 [facility] Comment on above: Performed By: #### L 500.2500 ####[facility] [address] [place], [address] Basic Metabolic Profile (BMP )on 11-16-2024 BUN/CRE 18.5 RATIO Normal 10-20 [facility] Comment on above: Performed By: #### L 500.2500 ####[facility] [address] [place], [address] Calcium [Mass/Vol] 9.3 mg/dL Normal 7.6-11.0 [facility] Comment on above: Performed By: #### L 500.2500 ####[facility] [address] [place], [address] Chloride [Moles/Vol] 95 mmol/L Low 98-108 [facility] Comment on above: Performed By: #### L 500.2500 ####[facility] [address] [place], [address] CO2 [Moles/Vol] 21.4 mmol/L Normal 21.0-32.0 [facility] Comment on above: Performed By: #### L 500.2500 ####[facility] [address] [place], [address] Creatinine [Mass/Vol] 0.91 mg/dL Normal 0.70-1.20 [facility] Comment on above: Performed By: #### L 500.2500 ####[facility] [address] [place], [address] ECRCL 35.42 ml/min Low 50-250 [facility] Comment on above: Performed By: #### L 500.2500 ####[facility] [address] [place], [address] GAP 11 Normal 5-15 [facility] Comment on above: Performed By: #### L 500.2500 ####[facility] [address] [place], [address] GFR/1.73 sq M.predicted among non-blacks MDRD (S/P/Bld) [Vol rate/Area] 64 mL/min/{1.73_m2} Normal >60 [facility] Comment on above: Result Comment: mL/m in/1.73m2 CKD-EPI Creatinine Equation (2020) Performed By: #### L 500.2500 ####[facility] [address] [place], [address] Glucose [Mass/Vol] 103 mg/dL High 70-99 [facility] Comment on above: Performed By: #### L 500.2500 ####[facility] [address] [place], [address] Potassium [Moles/Vol] 4.5 mmol/L Normal 3.3-5.1 [facility] Comment on above: Performed By: #### L 500.2500 ####[facility] [address] [place], [address] Sodium [Moles/Vol] 126 mmol/L Low 133-145 [facility] Comment on above: Performed By: #### L 500.2500 ####[facility] [address] [place], [address] Urea nitrogen [Mass/Vol] 17 mg/dL Normal 4-19 [facility] Comment on above: Performed By: #### L 500.2500 ####[facility] [address], [address] L509.6001on 11-16-2024 CORTISOL 11.40 ug/dL Normal 6.02-18.40 [facility] Comment on above: Performed By: #### L 509.6001 ####[facility] [address] [place], [address] Serum or plasma cortisol silvio surement (mass/volume)Ordered By: Jo-Ann Arias on 11-16-2024 Cortisol [Mass/Vol] 11.40 ug/dL 6.02-18.40 [facility] Basic Metabolic Profile (BMP )on 11-15-2024 BUN/CRE 18.3 RATIO Normal 10-20 [facility] Comment on above: Performed By: #### L 500.2500 ####[facility] [address] [place], [address] Calcium [Mass/Vol] 9.1 mg/dL Normal 7.6-11.0 [facility] Comment on above: Performed By: #### L 500.2500 ####[facility] [address] [place], [address] Chloride [Moles/Vol] 92 mmol/L Low 98-108 [facility] Comment on above: Performed By: #### L 500.2500 ####[facility] [address] [place], [address] CO2 [Moles/Vol] 22.8 mmol/L Normal 21.0-32.0 [facility] Comment on above: Performed By: #### L 500.2500 ####[facility] [address] [place], [address] Creatinine [Mass/Vol] 0.91 mg/dL Normal 0.70-1.20 [facility] Comment on above: Performed By: #### L 500.2500 ####[facility] [address] [place], [address] ECRCL 35.42 ml/min Low 50-250 [facility] Comment on above: Performed By: #### L 500.2500 ####[facility] [address] [place], [address] GAP 10 Normal 5-15 [facility] Comment on above: Performed By: #### L 500.2500 ####[facility] [address] [place], [address] GFR/1.73 sq M.predicted among non-blacks MDRD (S/P/Bld) [Vol rate/Area] 64 mL/min/{1.73_m2} Normal >60 [facility] Comment on above: Result Comment: mL/m in/1.73m2 CKD-EPI Creatinine Equation (2020) Performed By: #### L 500.2500 ####[facility] [address] [place], [address] Glucose [Mass/Vol] 97 mg/dL Normal 70-99 [facility] Comment on above: Performed By: #### L 500.2500 ####[facility] [address] [place], [address] Potassium [Moles/Vol] 4.7 mmol/L Normal 3.3-5.1 [facility] Comment on above: Performed By: #### L 500.2500 ####[facility] [address] [place], [address] Sodium [Moles/Vol] 124 mmol/L Low 133-145 [facility] Comment on above: Performed By: #### L 500.2500 ####[facility] [address] [place], [address] Urea nitrogen [Mass/Vol] 17 mg/dL Normal 4-19 [facility] Comment on above: Performed By: #### L 500.2500 ####[facility] [address] [place], [address] Bilirubin, totalOrdered By: Jo-Ann Arias on 11-13-2024 Bilirubin [Mass/Vol] 0.71 mg/dL 0.00-1.30 [facility] CBC-Complete Blood Cnt No Di ffon 11-13-2024 Erythrocyte distribution width (RBC) [Ratio] 13.2 % Normal 11.6-14.6 [facility] Comment on above: Performed By: #### L 501.5200, L100.0500, L500.4050 ####[facility] [address] [place], [address] Hematocrit (Bld) [Volume fraction] 30.8 % Low 37-47 [facility] Comment on above: Performed By: #### L 501.5200, L100.0500, L500.4050 ####[facility] [address] [place], [address] Hemoglobin (Bld) [Mass/Vol] 11.1 g/dL Low 12.0-15.0 [facility] Comment on above: Performed By: #### L 501.5200, L100.0500, L500.4050 ####[facility] [address] [place], [address] MCH (RBC) [Entitic mass] 33.3 pg High 27.0-32.0 [facility] Comment on above: Performed By: #### L 501.5200, L100.0500, L500.4050 ####[facility] [address] [place], [address] MCHC (RBC) [Mass/Vol] 36.0 g/dL Normal 32-36 [facility] Comment on above: Performed By: #### L 501.5200, L100.0500, L500.4050 ####[facility] [address] [place], [address] MCV (RBC) [Entitic vol] 92.5 fL Normal 81-99 [facility] Comment on above: Performed By: #### L 501.5200, L100.0500, L500.4050 ####[facility] [address] [place], [address] Platelet mean volume (Bld) [Entitic vol] 10.1 fL Normal 6.2-12.0 [facility] Comment on above: Performed By: #### L 501.5200, L100.0500, L500.4050 ####[facility] [address] [place], [address] Platelets (Bld) [#/Vol] 204 10*3/uL Normal 150-450 [facility] Comment on above: Performed By: #### L 501.5200, L100.0500, L500.4050 ####[facility] [address] [place], [address] RBC (Bld) [#/Vol] 3.33 10*6/uL Low 4.2-5.4 [facility] Comment on above: Performed By: #### L 501.5200, L100.0500, L500.4050 ####[facility] [address] [place], [address] RDW SD 44.3 fl High 35.1-43.9 [facility] Comment on above: Performed By: #### L 501.5200, L100.0500, L500.4050 ####[facility] [address] [place], [address] WBC (Bld) [#/Vol] 7.0 10*3/uL Normal 4.4-11.0 [facility] Comment on above: Performed By: #### L 501.5200, L100.0500, L500.4050 ####[facility] [address] [place], [address] Comprehensive Metabolic Prof ilon 11-13-2024 Albumin [Mass/Vol] 3.9 g/dL Normal 3.4-4.8 [facility] Comment on above: Performed By: #### L 501.5200, L100.0500, L500.4050 ####[facility] [address] [place], [address] Albumin/Globulin [Mass ratio] 1.8 {ratio} Normal 0.9-2.4 [facility] Comment on above: Performed By: #### L 501.5200, L100.0500, L500.4050 ####[facility] [address] [place], [address] ALK PHOS 81 U/L Normal 35-104 [facility] Comment on above: Performed By: #### L 501.5200, L100.0500, L500.4050 ####[facility] [address] [place], [address] ALT [Catalytic activity/Vol] 82 U/L High <=34 [facility] Comment on above: Performed By: #### L 501.5200, L100.0500, L500.4050 ####[facility] [address] [place], [address] AST [Catalytic activity/Vol] 57 U/L High <=31 [facility] Comment on above: Performed By: #### L 501.5200, L100.0500, L500.4050 ####[facility] [address] [place], [address] Bilirubin [Mass/Vol] 0.71 mg/dL Normal 0.00-1.30 [facility] Comment on above: Performed By: #### L 501.5200, L100.0500, L500.4050 ####[facility] [address] [place], [address] BUN/CRE 22.2 RATIO High 10-20 [facility] Comment on above: Performed By: #### L 501.5200, L100.0500, L500.4050 ####[facility] [address] [place], [address] Calcium [Mass/Vol] 9.4 mg/dL Normal 7.6-11.0 [facility] Comment on above: Performed By: #### L 501.5200, L100.0500, L500.4050 ####[facility] [address] [place], [address] Chloride [Moles/Vol] 95 mmol/L Low 98-108 [facility] Comment on above: Performed By: #### L 501.5200, L100.0500, L500.4050 ####[facility] [address] [place], [address] CO2 [Moles/Vol] 22.0 mmol/L Normal 21.0-32.0 [facility] Comment on above: Performed By: #### L 501.5200, L100.0500, L500.4050 ####[facility] [address] [place], [address] Creatinine [Mass/Vol] 0.89 mg/dL Normal 0.70-1.20 [facility] Comment on above: Performed By: #### L 501.5200, L100.0500, L500.4050 ####[facility] [address] [place], [address] ECRCL 36.21 ml/min Low 50-250 [facility] Comment on above: Performed By: #### L 501.5200, L100.0500, L500.4050 ####[facility] [address] [place], [address] GAP 10 Normal 5-15 [facility] Comment on above: Performed By: #### L 501.5200, L100.0500, L500.4050 ####[facility] [address] [place], [address] GFR/1.73 sq M.predicted among non-blacks MDRD (S/P/Bld) [Vol rate/Area] 66 mL/min/{1.73_m2} Normal >60 [facility] Comment on above: Result Comment: mL/m in/1.73m2 CKD-EPI Creatinine Equation (2020) Performed By: #### L 501.5200, L100.0500, L500.4050 ####[facility] [address] [place], [place], [address] Globulin (S) [Mass/Vol] 2.2 g/dL Normal 2.2-4.2 [facility] Comment on above: Performed By: #### L 501.5200, L100.0500, L500.4050 ####[facility] [address] [place], [address] Glucose [Mass/Vol] 95 mg/dL Normal 70-99 [facility] Comment on above: Performed By: #### L 501.5200, L100.0500, L500.4050 ####[facility] [address] [place], [address] Potassium [Moles/Vol] 4.7 mmol/L Normal 3.3-5.1 [facility] Comment on above: Performed By: #### L 501.5200, L100.0500, L500.4050 ####[facility] [address] [place], [address] Sodium [Moles/Vol] 127 mmol/L Low 133-145 [facility] Comment on above: Performed By: #### L 501.5200, L100.0500, L500.4050 ####[facility] [address] [place], [address] T PROT 6.1 g/dL Normal 5.9-8.4 [facility] Comment on above: Performed By: #### L 501.5200, L100.0500, L500.4050 ####[facility] [address] [place], [address] Urea nitrogen [Mass/Vol] 20 mg/dL High 4-19 [facility] Comment on above: Performed By: #### L 501.5200, L100.0500, L500.4050 ####[facility] [address] [place], [address] Laboratory - Chemistry and C hemistry - challengeOrdered By: Jo-Ann Arias on 11-13-2024 AST [Catalytic activity/Vol] 57 U/L High <32 [facility] Magnesiumon 11-13-2024 Magnesium [Mass/Vol] 2.0 mg/dL Normal 1.5-2.2 [facility] Comment on above: Performed By: #### L 501.5200, L100.0500, L500.4050 ####[facility] [address] [place], [address] Magnesium measurement (mass/ volume)Ordered By: Jo-Ann Arias on 11-13-2024 Magnesium (Unsp spec) [Mass/Vol] 2.0 mg/dL 1.5-2.2 [facility] No Panel InformationOrdered By: Jo-Ann Arias on 11-13-2024 57 U/L High <32 [facility] Osmolality, Serumon 11-14-19 25 OSMOLALITY,SER 271 mOsm/KG Low 280-301 [facility] Comment on above: Performed By: #### L 501.7300 ####[facility] [address] [place], [address] Osmolality, Urineon 11-14-19 25 OSMOLALITY,UR 591 mOsm/KG Normal [facility] Comment on above: Result Comment: Norm al Urine Reference Ranges Random: 50 - 1200 mOsm/kg H20 depending on fluid intake Random: >850 mOsm/kg after 12 hour fluid restriction 24 hour: 300 - 900 mOsm/kg H2O Performed By: #### L 501.7400, L501.5500 ####[facility] [address] [place], [place], [id number] Phosphoruson 11-13-2024 Phosphate [Mass/Vol] 3.9 mg/dL Normal 2.7-4.5 [facility] Comment on above: Performed By: #### L 501.2300 ####[facility] [address] [place], [place], [id number] Serum globulin measurementOr dered By: Jo-Ann Arias on 11-13-2024 Globulin (S) [Mass/Vol] 2.2 g/dL 2.2-4.2 [facility] Serum or plasma alanine oliver otransferase (ALT) measurementOrdered By: Jo-Ann Arias on 11-13-2024 ALT [Catalytic activity/Vol] 82 U/L High <35 [facility] Serum or plasma albumin/glob ulin mass ratioOrdered By: Jo-Ann Arias on 11-13-2024 Albumin/Globulin [Mass ratio] 1.8 {ratio} 0.9-2.4 [facility] Serum or plasma alkaline brenna sphatase measurementOrdered By: Jo-Ann Arias on 11-13-2024 ALP [Catalytic activity/Vol] 81 U/L 35-104 [facility] TSH DL <= 0.005 mIU/L QnOrde red By: Jo-Ann Arias on 11-13-2024 TSH Qn 1.990 uIU/mL 0.300-4.200 [facility] Thyroid Stim Hormone (TSH)on 11-13-2024 TSH 1.990 uIU/mL Normal 0.300-4.200 [facility] Comment on above: Performed By: #### L 501.9520 ####[facility] [address] [place], [place], [id number] Total proteinOrdered By: Alyssa Arias on 11-13-2024 Protein [Mass/Vol] 6.1 g/dL 5.9-8.4 [facility] Urine Sodiumon 11-13-2024 Sodium (U) [Moles/Vol] 89 mmol/L Normal Not Establ. [facility] Comment on above: Performed By: #### L 501.7400, L501.5500 ####[facility] [address] [place], [address] CBC,PLATELETSon 11-12-2024 Hematocrit (Bld) [Volume fraction] 30.0 % Low 34.9-44.3 [facility] Comment on above: Performed By: #### H EMOGC #### [facility] (DEFAULT) [address] [address] Hemoglobin (Bld) [Mass/Vol] 10.6 g/dL Low 11.4-15.2 [facility] Comment on above: Performed By: #### H EMOGC #### [facility] (DEFAULT) [address] [address] MCV (RBC) [Entitic vol] 92.9 fL Normal 79.6-97.7 [facility] Comment on above: Performed By: #### H EMOGC #### [facility] (DEFAULT) [address] [address] Mean Cell Hgb 32.8 pg Normal 25.9-33.9 [facility] Comment on above: Performed By: #### H EMOGC #### [facility] (DEFAULT) [address] [address] Mean Cell Hgb Conc 35.3 g/dL Normal 31.4-35.9 [facility] Comment on above: Performed By: #### H EMOGC #### [facility] (DEFAULT) [address] [address] Platelet mean volume (Bld) [Entitic vol] 10.2 fL Normal 8.5-12.2 [facility] Comment on above: Performed By: #### H EMOGC #### [facility] (DEFAULT) [address] [address] Platelets (Bld) [#/Vol] 195 10*3/uL Normal 150-393 [facility] Comment on above: Performed By: #### H EMOGC #### [facility] (DEFAULT) [address] [place] [address] RBC (Bld) [#/Vol] 3.23 10*6/uL Low 3.91-5.04 [facility] Comment on above: Performed By: #### H EMOGC #### [facility] (DEFAULT) [address] [place] [address] RBC Distribution 13.2 % Normal 10.8-14.9 [facility] Comment on above: Performed By: #### H EMOGC #### [facility] (DEFAULT) [address] [place] [address] WBC (Bld) [#/Vol] 6.18 10*3/uL Normal 3.99-11.19 [facility] Comment on above: Performed By: #### H EMOGC #### [facility] (DEFAULT) [address] [place] [address] CHEM 7 (LYTES,BUN,CREA,GLUC) on 11-12-2024 Anion gap [Moles/Vol] 12 mmol/L Normal 7-17 [facility] Comment on above: Performed By: #### M GO, IPB, CHM7, HFP #### [facility] (DEFAULT) [address] [place] [address] Chloride [Moles/Vol] 99 mmol/L Normal 98-108 [facility] Comment on above: Performed By: #### M GO, IPB, CHM7, HFP #### [facility] (DEFAULT) [address] [place] [address] CO2 [Moles/Vol] 25 mmol/L Normal 21-31 [facility] Comment on above: Performed By: #### M GO, IPB, CHM7, HFP #### [facility] (DEFAULT) [address] [place] [address] Creatinine [Mass/Vol] 0.89 mg/dL Normal 0.50-1.20 [facility] Comment on above: Performed By: #### GA FUNES CHM7, HFP #### [facility] (DEFAULT) [address] [place] [address] GFR/1.73 sq M.predicted among non-blacks MDRD (S/P/Bld) [Vol rate/Area] 65 mL/min/{1.73_m2} Normal >=60 [facility] Comment on above: Result Comment: Repo rted eGFR is based on the CKD-EPI 2020 equation using creatinine, age, and sex. Performed By: #### GA FUNES CHM7, HFP #### [facility] (DEFAULT[facility] [address] [place] [address] Glucose [Mass/Vol] 99 mg/dL Normal Nonfastin -179 mg/dL; Fastin-99 [facility] Comment on above: Performed By: #### GA FUNES CHM7, HFP #### [facility] (DEFAULT) [address] [place] [address] Osmolality [Osmolality] 278 mosm/kg Normal 278-305 [facility] Comment on above: Performed By: #### GA FUNES, CHM7, HFP #### [facility] (DEFAULT) [address] [place] [address] Potassium [Moles/Vol] 4.5 mmol/L Normal 3.5-5.0 [facility] Comment on above: Performed By: #### GA FUNES, CARLM7, HFP #### [facility] (DEFAULT) [address] [place] [address] Sodium [Moles/Vol] 131 mmol/L Low 135-145 [facility] Comment on above: Performed By: #### GA FUNES, CHM7, HFP #### [facility] (DEFAULT) [address] [place] [address] Urea nitrogen [Mass/Vol] 16 mg/dL Normal 7-25 [facility] Comment on above: Performed By: #### M GA ALBERTO CHM7, HFP #### [facility] (DEFAULT) [address] [place] [address] Urea nitrogen/Creatinine [Mass ratio] 18 mg/mg Normal [facility] Comment on above: Performed By: #### M GA ALBERTO, KARL7, HFP #### [facility] (DEFAULT) [address] [place] [address] Cardiac echo study Procedure Ordered By: Shirlene Marrero on 11-12-2024 Ao ASC index 2.1 cm/m2 [facility] Work Phone: [phone] Ao peak vika 2.71 m/s [facility] Work Phone: Ao SOV index 1.88 cm/m2 [facility] Work Phone: [phone] Ao VTI 63.7 cm [facility] Work Phone: AR Max Vika 4.09 m/s [facility] Work Phone: Ascending aorta 2.9 [facility]: AV LVOT peak gradient 9 mmHg [facility] Work Phone: [phone] AV mean gradient 15 mmHg [facility] Work Phone: AV peak gradient 29 mmHG [facility] Work Phone: AV regurgitation pressure 1/2 time 468 ms [facility] Work Phone: [phone] AV valve area 1.38 cm2 [facility] Work Phone: AV Velocity Ratio 0.54 [facility] Work Phone: JULIUS (continuity Vmax) 1.37 [facility]2 [facility]: JULIUS (continuity VTI) 1.38 cm2 [facility] Work [facility]: JULIUS index (continuity Vmax) 0.99 m/s [facility] Work Phone: JULIUS index (continuity VTI) 1 cm2/m2 [facility] Work Phone: Avg e' pk vika 0.06 m/s [facility] Work Phone: Avg E/e' ratio 15.98 [facility] Work Phone: Body surface area Derived from formula 1.38 m2 [facility] Work Phone: DI (Vmax) 0.54 [facility] Work Phone: DI (VTI) 0.54 m/2 [facility] Work Phone: E wave decelartion time 209 msec [facility] Work Phone: e' lateral pk vika 0.0729 m/s [facility] Work Phone: e' lateral pk vika 0.07 m/s [facility] Work Phone: e' septal pk vika 0.0511 [facility]s [facility] Work [facility]: e' septal pk vika 0.05 m/s [facility] Work Phone: E/A ratio 0.73 [facility] Work Phone: E/e' lateral ratio 13.17 [facility] Work Phone: E/e' septal ratio 18.79 [facility] Work Phone: Echo EF Estimated 55 % [facility] Work Phone: EST RAP [address] [facility] Work Phone: EST RVSP [address] [facility] Work Phone: FS 47 % [facility] Work Phone: IVC ostium 1.5 [facility]: IVS 0.9 [facility] Work Phone: LA ESV BP (MOD) 60 mL [facility] Work Phone: LA ESV BP (MOD) index 43 mL/m2 [facility] Work Phone: LA ESV SP 2CH (MOD) 46 mL [facility] Work Phone: LA ESV SP 4CH (MOD) 64 mL [facility] Work Phone: LV mass 141.91 g [facility] Work Phone: LV Mass Index 102.8 g/m2 [facility] Work Phone: LV RWT 0.33 [facility] Work Phone: LVIDD 4.9 cm [facility] Work Phone: LVIDS 2.6 cm [facility] Work Phone: LVOT area 2.54 cm2 [facility] Work Phone: LVOT diameter 1.8 cm [facility] Work Phone: LVOT peak vika 1.46 m/s [facility] Work Phone: LVOT peak VTI 34.5 cm [facility] Work Phone: LVOT stroke volume 88 cm3 [facility] Work Phone: LVOT stroke volume index 63.59 ml/m2 [facility] Work Phone: MV pk A vika 1.32 m/s [facility] Work Phone: MV pk E vika 0.96 m/s [facility] Work Phone: MV stenosis pressure 1/2 time 61 ms [facility] Work Phone: MV valve area p 1/2 method 3.61 cm2 [facility] Work Phone: [facility] AV VTI RATIO PRE STRESS 0.54 [facility] Work Phone: [facility] RVOT VTI RATIO 0.79 [facility]: PV mean gradient 4 mmHg [facility] Work Phone: PV peak gradient 6 [facility] Work [facility]: PV PK VIKA 1.22 m/s [facility] Work [facility]: PV VTI 29.8 cm [facility] Work Phone: PW 0.8 cm [facility] Work Phone: RA vol index 4CH (MOD) 12.32 mL/m2 [facility] Work Phone: Right atrium volume 4 chamber method of disks [address] [facility] Work Phone: RV basal diam 3.7 cm [facility] Work Phone: RV S' 13.1 cm/s [facility] Work Phone: RVOT peak gradient 4 mmHg [facility] Work [facility]: RVOT peak vika 0.97 m/s [facility] Work Phone: RVOT peak VTI 23.5 cm [facility] Work Phone: Sinus 2.6 cm [facility] Work Phone: Stroke Volume 88 cm/mL [facility] Work Phone: Stroke volume index 64 [facility] Work Phone: TAPSE 2.23 cm [facility] Work Phone: TR pk grad 22 mmHg [facility] Work Phone: TR pk vika 2.33 m/s [facility] Work Phone: [facility] Work Phone: Cardiac echo study Procedure [...] and technically difficult study. Imaging system used: [employer]. Indications Indications for study: murmur. Wall Scoring Score Index: 1.00 The left ventricular wall motion is normal. [facility] Radiology Study observation (narrative) [facility] ECHOCARDIOGRAMon 11-12-2024 Echocardiography Normal left ventricu lar [...] from the original result were not included. [facility] Facility [facility] Patient Information Patient Name Sarah Mcguire Legal [...] Role Read Date Shirlene Marrero MD Echo [place], [employer] 11/12/2024 Wall Scoring Score Index: 1.00 The [...] PISA A (more content not included)... Normal [facility] Laboratory - Chemistry and C hemistry - challengeon 11-12-2024 Anion gap [Moles/Vol] 12 mmol/L 7 - 17 mmol/L [facility] Chloride [Moles/Vol] 99 mmol/L 98 - 10 8 mmol/L [facility] CO2 [Moles/Vol] 25 mmol/L 21 - 31 mmol/L [facility] Creatinine [Mass/Vol] 0.89 mg/dL 0.50 - 1.20 mg/dL [facility] Glucose [Mass/Vol] 99 mg/dL 70 - 179 mg/dL [facility] Osmolality Calc [Osmolality] 278 [facility] Potassium [Moles/Vol] 4.5 mmol/L 3.5 - 5.0 mmol/L [facility] Sodium [Moles/Vol] 131 mmol/L Low 135 - 145 mmol/L [facility] Urea nitrogen [Mass/Vol] 16 mg/dL 7 - 25 mg/dL [facility] Urea nitrogen/Creatinine [Mass ratio] 18 mg/mg [facility] Laboratory - Hematology and Cell countson 11-12-2024 Erythrocyte distribution width (RBC) [Ratio] 13.2 % 10.8 - 14.9 % [facility] Hematocrit (Bld) [Volume fraction] 30 % Low 34.9 - 44.3 % [facility] Hemoglobin (Bld) [Mass/Vol] 10.6 g/dL Low 11.4 - 15.2 g/dL [facility] MCH (RBC) [Entitic mass] 32.8 pg 25.9 - 33.9 pg [facility] MCHC (RBC) [Mass/Vol] 35.3 g/dL 31.4 - 35.9 g/dL [facility] MCV (RBC) [Entitic vol] 92.9 fL 79.6 - 97.7 fL [facility] Platelet mean volume (Bld) [Entitic vol] 10.2 fL 8.5 - 12.2 fL [facility] Platelets (Bld) [#/Vol] 195 10*3/uL 150 - 393 K/uL [facility] RBC (Bld) [#/Vol] 3.23 10*6/uL Low [facility] WBC (Bld) [#/Vol] 6.18 10*3/uL 3.99 - 11.19 K/uL [facility] No Panel Informationon 11-12 eGFR, CKD-EPI, Female 63 - PINF [facility] Comment on above: Reported eGFR is bas ed on the CKD-EPI 2020 equation using creatinine, age, and sex. Interpretation and review of laboratory results Abnormal [facility] Interpretation and review of laboratory results Abnormal [facility] CBC,PLATELETSon 11-11-2024 Hematocrit (Bld) [Volume fraction] 29.3 % Low 34.9-44.3 [facility] Comment on above: Performed By: #### H [facility] #### [facility] (DEFAULT) [address] [address] Hemoglobin (Bld) [Mass/Vol] 10.2 g/dL Low 11.4-15.2 [facility] Comment on above: Performed By: #### H EMO #### [facility] (DEFAULT) [address] [address] MCV (RBC) [Entitic vol] 93.3 fL Normal 79.6-97.7 [facility] Comment on above: Performed By: #### H [facility] #### [facility] (DEFAULT) [address] [address] Mean Cell Hgb 32.5 pg Normal 25.9-33.9 [facility] Comment on above: Performed By: #### H EMOGC #### [facility] (DEFAULT) [address] [address] Mean Cell Hgb Conc 34.8 g/dL Normal 31.4-35.9 [facility] Comment on above: Performed By: #### H EMO #### [facility] (DEFAULT) [address] [place] [address] Platelet mean volume (Bld) [Entitic vol] 10.3 fL Normal 8.5-12.2 [facility] Comment on above: Performed By: #### H EMOGC #### [facility] (DEFAULT) [address] [place] [address] Platelets (Bld) [#/Vol] 193 10*3/uL Normal 150-393 [facility] Comment on above: Performed By: #### H EMOGC #### [facility] (DEFAULT) [address] [place] [address] RBC (Bld) [#/Vol] 3.14 10*6/uL Low 3.91-5.04 [facility] Comment on above: Performed By: #### H EMOGC #### [facility] (DEFAULT) [address] [place] [address] RBC Distribution 13.2 % Normal 10.8-14.9 [facility] Comment on above: Performed By: #### H EMOGC #### [facility] (DEFAULT) [address] [place] [address] WBC (Bld) [#/Vol] 5.77 10*3/uL Normal 3.99-11.19 [facility] Comment on above: Performed By: #### H EMOGC #### [facility] (DEFAULT) [address] [place] [address] CHEM 7 (LYTES,BUN,CREA,GLUC) on 11-11-2024 Anion gap [Moles/Vol] 12 mmol/L Normal 7-17 [facility] Comment on above: Performed By: #### GA FUNES, CARLM7, HFP #### [facility] (DEFAULT) [address] [place] [address] Chloride [Moles/Vol] 98 mmol/L Normal 98-108 [facility] Comment on above: Performed By: #### GA FUNES CHM7, HFP #### [facility] (DEFAULT) [address] [place] [address] CO2 [Moles/Vol] 24 mmol/L Normal 21-31 [facility] Comment on above: Performed By: #### GA FUNES CHM7, HFP #### [facility] (DEFAULT) [address] [place] [address] Creatinine [Mass/Vol] 0.93 mg/dL Normal 0.50-1.20 [facility] Comment on above: Performed By: #### GA FUNES CHM7, HFP #### [facility] (DEFAULT) [address] [place] [address] GFR/1.73 sq M.predicted among non-blacks MDRD (S/P/Bld) [Vol rate/Area] 62 mL/min/{1.73_m2} Normal >=60 [facility] Comment on above: Result Comment: Repo rted eGFR is based on the CKD-EPI 2020 equation using creatinine, age, and sex. Performed By: #### GA FUNES CHM7, HFP #### [facility] (DEFAULT) [address] [place] [address] Glucose [Mass/Vol] 95 mg/dL Normal Nonfastin -179 mg/dL; Fastin-99 [facility] Comment on above: Performed By: #### GA FUENS CHM7, HFP #### [facility] (DEFAULT) [address] [place] [address] Osmolality [Osmolality] 275 mosm/kg Low 278-305 [facility] Comment on above: Performed By: #### GA FUNES CHM7, HFP #### [facility] (DEFAULT) [address] [place] [address] Potassium [Moles/Vol] 4.3 mmol/L Normal 3.5-5.0 [facility] Comment on above: Performed By: #### M GO, IPB, CHM7, HFP #### [facility] (DEFAULT) [address] [place] [address] Sodium [Moles/Vol] 130 mmol/L Low 135-145 [facility] Comment on above: Performed By: #### M REMY, IPB, CHM7, HFP #### [facility] (DEFAULT) [address] [place] [address] Urea nitrogen [Mass/Vol] 15 mg/dL Normal 7-25 [facility] Comment on above: Performed By: #### M REMY, IPB, CHM7, HFP #### [facility] (DEFAULT) [address] [place] [address] Urea nitrogen/Creatinine [Mass ratio] 16 mg/mg Normal [facility] Comment on above: Performed By: #### M REMY, IPB, CHM7, HFP #### [facility] (DEFAULT) [address] [place] [address] Laboratory - Chemistry and C hemistry - challengeon 11-11-2024 Anion gap [Moles/Vol] 12 mmol/L 7 - 17 mmol/L [facility] Chloride [Moles/Vol] 98 mmol/L 98 - 10 8 mmol/L [facility] CO2 [Moles/Vol] 24 mmol/L 21 - 31 mmol/L [facility] Creatinine [Mass/Vol] 0.93 mg/dL 0.50 - 1.20 mg/dL [facility] Glucose [Mass/Vol] 95 mg/dL 70 - 179 mg/dL [facility] Osmolality Calc [Osmolality] 275 Low [facility] Potassium [Moles/Vol] 4.3 mmol/L 3.5 - 5.0 mmol/L [facility] Sodium [Moles/Vol] 130 mmol/L Low 135 - 145 mmol/L [facility] Urea nitrogen [Mass/Vol] 15 mg/dL 7 - 25 mg/dL [facility] Urea nitrogen/Creatinine [Mass ratio] 16 [facility] Cell countson 11-11-2024 Erythrocyte distribution width (RBC) [Ratio] 13.2 % 10.8 - 14.9 % [facility] Hematocrit (Bld) [Volume fraction] 29.3 % Low 34.9 - 44.3 % [facility] Hemoglobin (Bld) [Mass/Vol] 10.2 g/dL Low 11.4 - 15.2 g/dL [facility] MCH (RBC) [Entitic mass] 32.5 pg 25.9 - 33.9 pg [facility] MCHC (RBC) [Mass/Vol] 34.8 g/dL 31.4 - 35.9 g/dL [facility] MCV (RBC) [Entitic vol] 93.3 fL 79.6 - 97.7 fL [facility] Platelet mean volume (Bld) [Entitic vol] 10.3 fL 8.5 - 12.2 fL [facility] Platelets (Bld) [#/Vol] 193 10*3/uL 150 - 393 K/uL [facility] RBC (Bld) [#/Vol] 3.14 10*6/uL Low [facility] WBC (Bld) [#/Vol] 5.77 10*3/uL 3.99 - 11.19 K/uL [facility] No Panel Informationon 11-11 eGFR, CKD-EPI, Female 60 - PINF [facility] Comment on above: Reported eGFR is bas ed on the CKD-EPI 2020 equation using creatinine, age, and sex. Interpretation and review of laboratory results Abnormal [facility] Interpretation and review of laboratory results Abnormal [facility] CBC,PLATELETSon 11-10-2024 Hematocrit (Bld) [Volume fraction] 31.4 % Low 34.9-44.3 [facility] Comment on above: Performed By: #### M GO, IPB, CHM7, HFP #### [facility] (DEFAULT) [address] [place] [address] Hemoglobin (Bld) [Mass/Vol] 11.1 g/dL Low 11.4-15.2 [facility] Comment on above: Performed By: #### M REMY IPB, CHM7, HFP #### [facility] (DEFAULT) [address] [place] [address] MCV (RBC) [Entitic vol] 93.5 fL Normal 79.6-97.7 [facility] Comment on above: Performed By: #### M REMY, IPB, CHM7, HFP #### [facility] (DEFAULT) [address] [place] [address] Mean Cell Hgb 33.0 pg Normal 25.9-33.9 [facility] Comment on above: Performed By: #### Harini ALBERTO IPB, CHM7, HFP #### [facility] (DEFAULT) [address] [place] [address] Mean Cell Hgb Conc 35.4 g/dL Normal 31.4-35.9 [facility] Comment on above: Performed By: #### M REMY IPB, CHM7, HFP #### [facility] (DEFAULT) [address] [place] [address] Platelet mean volume (Bld) [Entitic vol] 10.4 fL Normal 8.5-12.2 [facility] Comment on above: Performed By: #### Harini ALBERTO IPB, CHM7, HFP #### [facility] (DEFAULT) [address] [place] [address] Platelets (Bld) [#/Vol] 205 10*3/uL Normal 150-393 [facility] Comment on above: Performed By: #### M REMY IPB, CHM7, HFP #### [facility] (DEFAULT) [address] [place] [address] [id number] RBC (Bld) [#/Vol] 3.36 10*6/uL Low 3.91-5.04 [facility] Comment on above: Performed By: #### M GO, IPB, CHM7, HFP #### [facility] (DEFAULT) [address] [place] [address] 80537 RBC Distribution 13.3 % Normal 10.8-14.9 [facility] Comment on above: Performed By: #### M IDALIA ALBERTOB, CHM7, HFP #### [facility] (DEFAULT) [address] [place] [address] 27499 WBC (Bld) [#/Vol] 9.67 10*3/uL Normal 3.99-11.19 [facility] Comment on above: Performed By: #### Harini ALBERTO IPB, CHM7, HFP #### [facility] (DEFAULT) [address] [place] [address] 25220 CHEM 7 (LYTES,BUN,CREA,GLUC) on 11-10-2024 Anion gap [Moles/Vol] 13 mmol/L Normal 7-17 [facility] Comment on above: Performed By: #### IDALIA FUNESB, CHM7, HFP #### [facility] (DEFAULT) [address] [place] [address] 83426 Chloride [Moles/Vol] 99 mmol/L Normal 98-108 [facility] Comment on above: Performed By: #### IDALIA FUNESB, CHM7, HFP #### [facility] (DEFAULT) [address] [place] [address] 60691 CO2 [Moles/Vol] 25 mmol/L Normal 21-31 [facility] Comment on above: Performed By: #### Harini ALBERTO IPB, CHM7, HFP #### [facility] (DEFAULT) [address] [place] [address] 52654 Creatinine [Mass/Vol] 0.78 mg/dL Normal 0.50-1.20 [facility] Comment on above: Performed By: #### Harini ALBERTO IPB, CHM7, HFP #### [facility] (DEFAULT) [address] [place] [address] 46694 GFR/1.73 sq M.predicted among non-blacks MDRD (S/P/Bld) [Vol rate/Area] 77 mL/min/{1.73_m2} Normal >=60 [facility] Comment on above: Result Comment: Repo rted eGFR is based on the CKD-EPI 2020 equation using creatinine, age, and sex. Performed By: #### IDALIA FUNESB, CHM7, HFP #### [facility] (DEFAULT) [address] [place] [address] 85551 Glucose [Mass/Vol] 96 mg/dL Normal Nonfastin -179 mg/dL; Fastin-99 [facility] Comment on above: Performed By: #### IDALIA FUNESB, CHM7, HFP #### [facility] (DEFAULT) [address] [place] [address] 43564 Osmolality [Osmolality] 280 mosm/kg Normal 278-305 [facility] Comment on above: Performed By: #### Harini ALBERTO IPB, CHM7, HFP #### [facility] (DEFAULT) [address] [place] [address] 36567 Potassium [Moles/Vol] 4.7 mmol/L Normal 3.5-5.0 [facility] Comment on above: Performed By: #### IDALIA FUNESB, CHM7, HFP #### [facility] (DEFAULT) [address] [place] [address] 74414 Sodium [Moles/Vol] 132 mmol/L Low 135-145 [facility] Comment on above: Performed By: #### Harini ALBERTO IPB, CHM7, HFP #### [facility] (DEFAULT) [address] [place] [address] 46051 Urea nitrogen [Mass/Vol] 16 mg/dL Normal 7-25 [facility] Comment on above: Performed By: #### Harini ALBERTO IPB, CHM7, HFP #### [facility] (DEFAULT) [address] [place] [address] 35889 Urea nitrogen/Creatinine [Mass ratio] 21 mg/mg Normal [facility] Comment on above: Performed By: #### M GO, IPB, CHM7, HFP #### [facility] (DEFAULT) [address] [place] [address] Laboratory - Chemistry and C hemistry - challengeon 11-10-2024 Anion gap [Moles/Vol] 13 mmol/L 7 - 17 mmol/L [facility] Chloride [Moles/Vol] 99 mmol/L 98 - 10 8 mmol/L [facility] CO2 [Moles/Vol] 25 mmol/L 21 - 31 mmol/L [facility] Creatinine [Mass/Vol] 0.78 mg/dL 0.50 - 1.20 mg/dL [facility] Glucose [Mass/Vol] 96 mg/dL 70 - 179 mg/dL [facility] Osmolality Calc [Osmolality] 280 [facility] Potassium [Moles/Vol] 4.7 mmol/L 3.5 - 5.0 mmol/L [facility] Sodium [Moles/Vol] 132 mmol/L Low 135 - 145 mmol/L [facility] Urea nitrogen [Mass/Vol] 16 mg/dL 7 - 25 mg/dL [facility] Urea nitrogen/Creatinine [Mass ratio] 21 mg/mg [facility] Laboratory - Hematology and Cell countson 11-10-2024 Erythrocyte distribution width (RBC) [Ratio] 13.3 % 10.8 - 14.9 % [facility] Hematocrit (Bld) [Volume fraction] 31.4 % Low 34.9 - 44.3 % [facility] Hemoglobin (Bld) [Mass/Vol] 11.1 g/dL Low 11.4 - 15.2 g/dL [facility] MCH (RBC) [Entitic mass] 33 pg 25.9 - 33.9 pg [facility] MCHC (RBC) [Mass/Vol] 35.4 g/dL 31.4 - 35.9 g/dL [facility] MCV (RBC) [Entitic vol] 93.5 fL 79.6 - 97.7 fL [facility] Platelet mean volume (Bld) [Entitic vol] 10.4 fL 8.5 - 12.[address] [facility] Platelets (Bld) [#/Vol] 205 10*3/uL 150 - 393 K/uL [facility] RBC (Bld) [#/Vol] 3.36 10*6/uL Low [facility] WBC (Bld) [#/Vol] 9.67 10*3/uL 3.99 - 11.19 K/uL [facility] MR Brain WO and W contrast [...] suggest recurrence. Stable remote right cerebellar infarct. [facility] Radiology Study observation (narrative) [facility] MRA Head vessels WO contrast on [...] of the brain is performed using 3D ckhn-qr-qxjiey technique without intravenous contrast. Source images, as [...] of the brain is performed using 3D obwm-nf-rihrmk technique without intravenous contrast. Source images, as [...] segment of the bilateral posterior cerebral arteries. [facility] Radiology Study observation (narrative) [facility] MRA Head vessels WO contrast Ordered By: Morgan Fierro on 11-10-2024 [facility] Work Phone: MRA Neck vessels WO [...] carotid or vertebral system in the neck. [facility] Radiology Study observation (narrative) [facility] MRI ANGIO NECK WITH AND WITH [...] or vertebral system in the neck. Normal [facility] MRI ARTERIOGRAM BRAIN WITHOU T CONTRASTon 11-10-2024 MRI ARTERIOGRAM BRAIN WITHOUT CONTRAST EXAM: MRI ARTERIOGRAM BRAIN WITHOUT CONTRAST, 11/10/2024 11:55 AM COMPARISON: MRI BRAIN WITH AND WITHOUT CONTRAST November 10, 2024 CLINICAL INDICATIONS: 78 years Female Seizure work up TECHNIQUE: MR Angiography of the brain is performed using 3D jahw-ty-acpfpz technique without intravenous contrast. Source images, as [...] of the bilateral posterior cerebral arteries. Normal [facility] MRI BRAIN WITH AND WITHOUT C [facility] 11-10-2024 MRI BRAIN WITH AND [...] recurrence. Stable remote right cerebellar infarct. Normal [facility] No Panel Informationon 11-10 [facility] eGFR, CKD-EPI, Female 75 - PINF [facility] Comment on above: Reported eGFR is bas ed on the CKD-EPI 2020 equation using creatinine, age, and sex. Interpretation and review of laboratory results Abnormal [facility] Interpretation and review of laboratory results Abnormal [facility] CBC,PLATELETSon 11-09-2024 Hematocrit (Bld) [Volume fraction] 28.5 % Low 34.9-44.3 [facility] Comment on above: Performed By: #### GA FUNES, CHM7, HFP #### [facility] (DEFAULT) [address] [place] [address] 99612 Hemoglobin (Bld) [Mass/Vol] 10.4 g/dL Low 11.4-15.2 [facility] Comment on above: Performed By: #### GA FUNES, CHM7, HFP #### [facility] (DEFAULT) [address] [place] [address] 19954 MCV (RBC) [Entitic vol] 91.9 fL Normal 79.6-97.7 [facility] Comment on above: Performed By: #### GA FUNES, CHM7, HFP #### [facility] (DEFAULT) [address] [place] [address] 57014 Mean Cell Hgb 33.5 pg Normal 25.9-33.9 [facility] Comment on above: Performed By: #### GA FUNES, CHM7, HFP #### [facility] (DEFAULT) [address] [place] [address] 10588 Mean Cell Hgb Conc 36.5 g/dL High 31.4-35.9 [facility] Comment on above: Performed By: #### GA FUNES, CHM7, HFP #### [facility] (DEFAULT) [address] [place] [address] 74207 Platelet mean volume (Bld) [Entitic vol] 10.4 fL Normal 8.5-12.2 [facility] Comment on above: Performed By: #### M GO, IPB, CHM7, HFP #### [facility] (DEFAULT) [address] [place] [address] 55022 Platelets (Bld) [#/Vol] 182 10*3/uL Normal 150-393 [facility] Comment on above: Performed By: #### M GO, IPB, CHM7, HFP #### [facility] (DEFAULT) [address] [place] [address] 10699 RBC (Bld) [#/Vol] 3.10 10*6/uL Low 3.91-5.04 [facility] Comment on above: Performed By: #### M GO, IPB, CHM7, HFP #### [facility] (DEFAULT) [address] [place] [address] 07551 RBC Distribution 13.2 % Normal 10.8-14.9 [facility] Comment on above: Performed By: #### M GO, IPB, CHM7, HFP #### [facility] (DEFAULT) [address] [place] [address] 43562 WBC (Bld) [#/Vol] 6.17 10*3/uL Normal 3.99-11.19 [facility] Comment on above: Performed By: #### M GO, IPB, CHM7, HFP #### [facility] (DEFAULT) [address] [place] [address] 46596 CHEM 7 (LYTES,BUN,CREA,GLUC) on 11-09-2024 Anion gap [Moles/Vol] 11 mmol/L Normal 7-17 [facility] Comment on above: Performed By: #### M GO, IPB, CHM7, HFP #### [facility] (DEFAULT) [address] [place] [address] 38430 Chloride [Moles/Vol] 100 mmol/L Normal 98-108 [facility] Comment on above: Performed By: #### M GO, IPB, CHM7, HFP #### [facility] (DEFAULT) [address] [place] [address] 16415 CO2 [Moles/Vol] 26 mmol/L Normal 21-31 [facility] Comment on above: Performed By: #### GA FUNES, CHM7, HFP #### [facility] (DEFAULT) [address] [place] [address] 05284 Creatinine [Mass/Vol] 0.97 mg/dL Normal 0.50-1.20 [facility] Comment on above: Performed By: #### GA FUNES, CHM7, HFP #### [facility] (DEFAULT) [address] [place] [address] 69425 GFR/1.73 sq M.predicted among non-blacks MDRD (S/P/Bld) [Vol rate/Area] 59 mL/min/{1.73_m2} Low >=60 [facility] Comment on above: Result Comment: Repo rted eGFR is based on the CKD-EPI 2020 equation using creatinine, age, and sex. Performed By: #### GA FUNES, KARL7, HFP #### [facility] (DEFAULT) [address] [place] [address] 40699 Glucose [Mass/Vol] 110 mg/dL Normal Nonfastin -179 mg/dL; Fastin-99 [facility] Comment on above: Performed By: #### GA FUNES, CARLM7, HFP #### [facility] (DEFAULT) [address] [place] [address] 68690 Osmolality [Osmolality] 283 mosm/kg Normal 278-305 [facility] Comment on above: Performed By: #### GA FUNES, CARLM7, HFP #### [facility] (DEFAULT) [address] [place] [address] 87002 Potassium [Moles/Vol] 4.2 mmol/L Normal 3.5-5.0 [facility] Comment on above: Performed By: #### GA FUNES, CHM7, HFP #### [facility] (DEFAULT) [address] [place] [address] 51850 Sodium [Moles/Vol] 133 mmol/L Low 135-145 [facility] Comment on above: Performed By: #### M GO, IPB, CHM7, HFP #### [facility] (DEFAULT) [address] [place] [address] 02787 Urea nitrogen [Mass/Vol] 20 mg/dL Normal 7-25 [facility] Comment on above: Performed By: #### M GO, IPB, CHM7, HFP #### [facility] (DEFAULT) [address] [place] [address] 53567 Urea nitrogen/Creatinine [Mass ratio] 21 mg/mg Normal [facility] Comment on above: Performed By: #### M GO, IPB, CHM7, HFP #### [facility] (DEFAULT) [address] [place] [address] 07293 HEPATIC FUNCTION PANELon Albumin [Mass/Vol] 3.7 g/dL Normal 3.5-5.0 [facility] Comment on above: Performed By: #### M GO, IPB, CHM7, HFP #### [facility] (DEFAULT) [address] [place] [address] 94195 ALP [Catalytic activity/Vol] 64 U/L Normal 32-126 [facility] Comment on above: Performed By: #### M GO, IPB, CHM7, HFP #### [facility] (DEFAULT) [address] [place] [address] 67894 ALT [Catalytic activity/Vol] 64 U/L High 9-48 [facility] Comment on above: Performed By: #### M GO, IPB, CHM7, HFP #### [facility] (DEFAULT) [address] [place] [address] 03207 AST [Catalytic activity/Vol] 41 U/L High 10-39 [facility] Comment on above: Performed By: #### M GO, IPB, CHM7, HFP #### [facility] (DEFAULT) [address] [place] [address] 58203 Bilirubin [Mass/Vol] 1.0 mg/dL Normal <1.5 [facility] Comment on above: Performed By: #### M GO, IPB, CHM7, HFP #### [facility] (DEFAULT) [address] [place] [address] 67144 Bilirubin.indirect [Mass/Vol] 0.2 mg/dL Normal <0.3 [facility] Comment on above: Performed By: #### M GO, IPB, CHM7, HFP #### [facility] (DEFAULT) [address] [place] [address] 65648 Protein [Mass/Vol] 5.9 g/dL Low 6.4-8.3 [facility] Comment on above: Performed By: #### M REMY, IPB, CHM7, HFP #### [facility] (DEFAULT) [address] [place] [address] 27772 Laboratory - Chemistry and C hemistry - challengeon 11-09-2024 Albumin [Mass/Vol] 3.7 g/dL 3.5 - 5.0 g/dL [facility] ALP [Catalytic activity/Vol] 64 U/L 32 - 126 U/L [facility] ALT [Catalytic activity/Vol] 64 U/L High 9 - 48 U/L [facility] Anion gap [Moles/Vol] 11 mmol/L 7 - 17 mmol/L [facility] AST [Catalytic activity/Vol] 41 U/L High 10 - 39 U/L [facility] Bilirubin [Mass/Vol] 1 mg/dL NINF - 1.5 mg/dL [facility] Bilirubin.direct [Mass/Vol] 0.2 mg/dL NINF - 0.3 mg/dL [facility] Chloride [Moles/Vol] 100 mmol/L 98 - 10 8 mmol/L [facility] CO2 [Moles/Vol] 26 mmol/L 21 - 31 mmol/L [facility] Creatinine [Mass/Vol] 0.97 mg/dL 0.50 - 1.20 mg/dL [facility] Glucose [Mass/Vol] 110 mg/dL 70 - 179 mg/dL [facility] Magnesium [Mass/Vol] 1.9 mg/dL 1.6 - 2 .6 mg/dL [facility]ality [facility]c [[facility]olality] [facility] Phosphate [Mass/Vol] 3.6 mg/dL 2.2 - 4 .6 mg/dL [facility] Potassium [Moles/Vol] 4.2 mmol/L 3.5 - 5.0 mmol/L [facility] Protein [Mass/Vol] 5.9 g/dL Low 6.4 - 8.3 g/dL [facility] Sodium [Moles/Vol] 133 mmol/L Low 135 - 145 mmol/L [facility] Urea nitrogen [Mass/Vol] 20 mg/dL 7 - 25 mg/dL [facility] Urea nitrogen/Creatinine [Mass ratio] 21 mg/mg [facility] Laboratory - Coagulationon 0 11-09-2024 aPTT Coag (PPP) [Time] 31.6 s [facility] INR Coag (Bld) [Relative time] 1.1 {INR} 0.9 - 1.1 [facility] PT Coag (PPP) [Time] 14 s [facility] Laboratory - Hematology and Cell countson 11-09-2024 Erythrocyte distribution width (RBC) [Ratio] 13.2 % 10.8 - 14.9 % [facility] Hematocrit (Bld) [Volume fraction] 28.5 % Low 34.9 - 44.3 % [facility] Hemoglobin (Bld) [Mass/Vol] 10.4 g/dL Low 11.4 - 15.2 g/dL [facility] MCH (RBC) [Entitic mass] 33.5 pg 25.9 - 33.9 pg [facility] MCHC (RBC) [Mass/Vol] 36.5 g/dL High 31.4 - 35.9 g/dL [facility] MCV (RBC) [Entitic vol] 91.9 fL 79.6 - 97.7 fL [facility] Platelet mean volume (Bld) [Entitic vol] 10.4 fL 8.5 - 12.2 fL [facility] Platelets (Bld) [#/Vol] 182 10*3/uL 150 - 393 K/uL [facility] RBC (Bld) [#/Vol] 3.1 10*6/uL Low [facility] WBC (Bld) [#/Vol] 6.17 10*3/uL 3.99 - 11.19 K/uL [facility] MAGNESIUMon 11-09-2024 Magnesium [Mass/Vol] 1.9 mg/dL Normal 1.6-2.6 [facility] Comment on above: Performed By: #### M GO, IPB, CHM7, HFP #### [facility] (DEFAULT) [address] [place] [address] No Panel Informationon 11-09 FABY Jacques - [...] this period of recording. Brittaney Ferraro MD [employer] Department of Neurology and Epilepsy [facility] eGFR, CKD-EPI, Female 57 Low - PINF [facility] Comment on above: Reported eGFR is bas ed on the CKD-EPI 2020 equation using creatinine, age, and sex. Interpretation and review of laboratory results Normal [facility] Interpretation and review of laboratory results Abnormal [facility] Interpretation and review of laboratory results Normal [facility] Interpretation and review of laboratory results Abnormal [facility] Radiology Study observation (narrative) [facility] PHOSPHATE, INORGANICon 11-09 Phosphorous 3.6 mg/dL Normal 2.2-4.6 [facility] Comment on above: Performed By: #### M GA ALBERTO CHM7, HFP #### [facility] (DEFAULT) [address] [place] [address] 71729 PT,INR,PTTon 11-09-2024 aPTT Coag (Bld) [Time] 31.6 s Normal 24.0-34.3 [facility] Comment on above: Performed By: #### M GA ALBERTO CHM7, HFP #### [facility] (DEFAULT) [address] [place] [address] 95668 INR Coag (PPP) [Relative time] 1.1 {INR} Normal 0.9-1.1 [facility] Comment on above: Performed By: #### M GO, IPB, CHM7, HFP #### [facility] (DEFAULT) [address] [place] [address] 61053 PT Coag (PPP) [Time] 14.0 s Normal 11.9-14.2 [facility] Comment on above: Performed By: #### M GO, IPB, CHM7, HFP #### [facility] (DEFAULT) [address] [place] [address] 56132 No Panel Informationon 11-08 [facility] 12 Lead EKGon 11-07-2024 12 Lead EKG Normal [facility] ALCOHOL (ETHANOL),BLOODon Alcohol, Serum <10 Normal <10 [facility] Comment on above: Order Comment: Non-f orensic. Performed By: #### M GO, IPB, CHM7, HFP #### [facility] (DEFAULT) [address] [place] [address] 20617 Absolute lymphocyte countOrd ered By: Dallas Anand on 11-07-2024 Lymphocytes Auto (Unsp spec) [#/Vol] 0.62 10*3/uL Low 0.83-4.51 [facility] Absolute neutrophil countOrd ered By: Dallas Anand on 11-07-2024 Neutrophils (Bld) [#/Vol] 5.3 10*3/uL 2.0-7.7 [facility] Activated partial thrombopla stin time (aPTT) in platelet poor plasma by coagulation aOrdered By: Dallas Anand on 11-07-2024 aPTT Coag (PPP) [Time] 33.0 s 24.1-36.2 [facility] Anion gap in Serum or Plasma Ordered By: Dallas Anand on 11-07-2024 Anion gap [Moles/Vol] 9 mmol/L 5-15 [facility] Automated lymphocyte count a s percentage of total leukocytesOrdered By: Dallas Anand on 11-07-2024 Lymphocytes/100 WBC Auto (Unsp spec) 9.3 % Low 19-41 [facility] BUN/creatinine ratioOrdered By: Dallas Anand on 11-07-2024 Urea nitrogen/Creatinine [Mass ratio] 22.3 mg/mg High 10-20 [facility] Basic Metabolic Profile (BMP )on 11-07-2024 BUN/CRE 22.3 RATIO High -20 [facility] Comment on above: Performed By: #### L 501.4021, L300.4310, L300.3900, L500.2500, L100.0100 ####[facility] [address] [place], [address] Calcium [Mass/Vol] 9.1 mg/dL Normal 7.6-11.0 [facility] Comment on above: Performed By: #### L 501.4021, L300.4310, L300.3900, L500.2500, L100.0100 ####[facility] [address] [place], [address] Chloride [Moles/Vol] 98 mmol/L Normal 98-108 [facility] Comment on above: Performed By: #### L 501.4021, L300.4310, L300.3900, L500.2500, L100.0100 ####[facility] [address] [place], [address] CO2 [Moles/Vol] 23.7 mmol/L Normal 21.0-32.0 [facility] Comment on above: Performed By: #### L 501.4021, L300.4310, L300.3900, L500.2500, L100.0100 ####[facility] [address] [place], [address] Creatinine [Mass/Vol] 1.04 mg/dL Normal 0.70-1.20 [facility] Comment on above: Performed By: #### L 501.4021, L300.4310, L300.3900, L500.2500, L100.0100 ####[facility] [address] [place], [address] ECRCL 30.99 ml/min Low 50-250 [facility] Comment on above: Performed By: #### L 501.4021, L300.4310, L300.3900, L500.2500, L100.0100 ####[facility] [address] [place], [address] GAP 9 Normal 5-15 [facility] Comment on above: Performed By: #### L 501.4021, L300.4310, L300.3900, L500.2500, L100.0100 ####[facility] [address] [place], [address] GFR/1.73 sq M.predicted among non-blacks MDRD (S/P/Bld) [Vol rate/Area] 54 mL/min/{1.73_m2} Low >60 [facility] Comment on above: Result Comment: mL/m in/1.73m2 CKD-EPI Creatinine Equation (2020) Performed By: #### L 501.4021, L300.4310, L300.3900, L500.2500, L100.0100 ####[facility] [address] [place], [address] Glucose [Mass/Vol] 101 mg/dL High 70-99 [facility] Comment on above: Performed By: #### L 501.4021, L300.4310, L300.3900, L500.2500, L100.0100 ####[facility] [address] [place], [address] Potassium [Moles/Vol] 4.5 mmol/L Normal 3.3-5.1 [facility] Comment on above: Performed By: #### L 501.4021, L300.4310, L300.3900, L500.2500, L100.0100 ####[facility] [address] [place], [address] Sodium [Moles/Vol] 131 mmol/L Low 133-145 [facility] Comment on above: Performed By: #### L 501.4021, L300.4310, L300.3900, L500.2500, L100.0100 ####[facility] [address] [place], [address] Urea nitrogen [Mass/Vol] 23 mg/dL High 4-19 [facility] Comment on above: Performed By: #### L 501.4021, L300.4310, L300.3900, L500.2500, L100.0100 ####[facility] [address] [place], [address] Basophil percentageOrdered B y: Dallas Anand on 11-07-2024 Basophils/100 WBC (Bld) 0.3 % 0-1 [facility] Bedside Glucoseon 11-07-2024 FINGERSTICK GLU 99 mg/dL Normal 74-106 [facility] Comment on above: Result Comment: REJI KUMAR OF PATIENT CARE PER NURSING PROTOCOL Performed By: #### L 501.080 ####[facility] [address] [place], [place], [id number] CBC AND ELECTRONIC DIFFon Abs Baso Auto < Normal 0.00-0.15 [facility] Comment on above: Performed By: #### M GO, IPB, CHM7, HFP #### [facility] (DEFAULT) [address] [address] Abs Eos Auto < Normal 0.00-0.42 [facility] Comment on above: Performed By: #### M GO, IPB, CHM7, HFP #### [facility] (DEFAULT) [address] [address] Basophils/100 WBC (Bld) 0.3 % Normal [facility] Comment on above: Performed By: #### M GO, IPB, CHM7, HFP #### [facility] (DEFAULT) [address] [address] DIFF STATUS Electronic Differential Normal [facility] Comment on above: Performed By: #### M GO, IPB, CHM7, HFP #### [facility] (DEFAULT) [address] [place] [address] 31019 Eosinophils/100 WBC (Bld) 0.4 % Normal [facility] Comment on above: Performed By: #### M GO, IPB, CHM7, HFP #### [facility] (DEFAULT) [address] [place] [address] 08444 Hematocrit (Bld) [Volume fraction] 29.0 % Low 34.9-44.3 [facility] Comment on above: Performed By: #### M GO, IPB, CHM7, HFP #### [facility] (DEFAULT) [address] [place] [address] 42701 Hemoglobin (Bld) [Mass/Vol] 10.5 g/dL Low 11.4-15.2 [facility] Comment on above: Performed By: #### M GO, IPB, CHM7, HFP #### [facility] (DEFAULT) [address] [place] [address] 41168 Immature Grans % 0.4 % Normal [facility] Comment on above: Performed By: #### M GO, IPB, CHM7, HFP #### [facility] (DEFAULT) [address] [place] [address] 36173 Immature Grans Absolute < Normal <=0.08 [facility] Comment on above: Performed By: #### M GO, IPB, CHM7, HFP #### [facility] (DEFAULT) [address] [place] [address] 18306 Lymphocytes (Bld) [#/Vol] 0.69 10*3/uL Low 1.16-3.51 [facility] Comment on above: Performed By: #### M GO, IPB, CHM7, HFP #### [facility] (DEFAULT) [address] [place] [address] 35874 Lymphocytes/100 WBC (Bld) 10.2 % Normal [facility] Comment on above: Performed By: #### M GO, IPB, CHM7, HFP #### [facility] (DEFAULT) [address] [place] [address] 64958 MCV (RBC) [Entitic vol] 91.5 fL Normal 79.6-97.7 [facility] Comment on above: Performed By: #### M GO, IPB, CHM7, HFP #### [facility] (DEFAULT) [address] [place] [address] 31398 Mean Cell Hgb 33.1 pg Normal 25.9-33.9 [facility] Comment on above: Performed By: #### M GO, IPB, CHM7, HFP #### [facility] (DEFAULT) [address] [place] [address] 20341 Mean Cell Hgb Conc 36.2 g/dL High 31.4-35.9 [facility] Comment on above: Performed By: #### M GO, IPB, CHM7, HFP #### [facility] (DEFAULT) [address] [place] [address] 07622 Monocytes (Bld) [#/Vol] 0.62 10*3/uL Normal 0.22-0.87 [facility] Comment on above: Performed By: #### M GO, IPB, CHM7, HFP #### [facility] (DEFAULT) [address] [place] [address] 42874 Monocytes/100 WBC (Bld) 9.2 % Normal [facility] Comment on above: Performed By: #### M GO, IPB, CHM7, HFP #### [facility] (DEFAULT) [address] [place] [address] 82794 Nucleated RBC 0.0 /100 WBC Normal <=0.2 [facility] Comment on above: Performed By: #### M GO, IPB, CHM7, HFP #### [facility] (DEFAULT) [address] [place] [address] 21308 Platelet mean volume (Bld) [Entitic vol] 10.0 fL Normal 8.5-12.2 [facility] Comment on above: Performed By: #### Harini ALBERTO IPB, CHM7, HFP #### [facility] (DEFAULT) [address] [place] [address] 63416 Platelets (Bld) [#/Vol] 169 10*3/uL Normal 150-393 [facility] Comment on above: Performed By: #### M GO, IPB, CHM7, HFP #### [facility] (DEFAULT) [address] [place] [address] 07863 RBC (Bld) [#/Vol] 3.17 10*6/uL Low 3.91-5.04 [facility] Comment on above: Performed By: #### Harini ALBERTO IPB, CHM7, HFP #### [facility] (DEFAULT) [address] [place] [address] 19135 RBC Distribution 13.1 % Normal 10.8-14.9 [facility] Comment on above: Performed By: #### Harini ALBERTO IPB, CHM7, HFP #### [facility] (DEFAULT) [address] [place] [address] 17770 Segs + Bands Auto 79.5 % Normal [facility] Comment on above: Performed By: #### M REMY IPB, CHM7, HFP #### [facility] (DEFAULT) [address] [place] [address] 47406 Segs + Bands,Absolute Auto 5.35 K/uL Normal 1.64-7.28 [facility] Comment on above: Performed By: #### Harini ALBERTO, IPB, CHM7, HFP #### [facility] (DEFAULT) [address] [place] [address] 04100 WBC (Bld) [#/Vol] 6.74 10*3/uL Normal 3.99-11.19 [facility] Comment on above: Performed By: #### M GO, IPB, CHM7, HFP #### [facility] (DEFAULT) [address] [place] [address] CBC W/Diff, Automatedon 06-0 -2024 Absolute Lymph 0.62 X10 3/uL Low 0.83-4.51 [facility] Comment on above: Performed By: #### L 501.4021, L300.4310, L300.3900, L500.2500, L100.0100 ####[facility] [address] [place], [address] Absolute Neut 5.3 X10 3/uL Normal 2.0-7.7 [facility] Comment on above: Performed By: #### L 501.4021, L300.4310, L300.3900, L500.2500, L100.0100 ####[facility] [address] [place], [address] Basophils/100 WBC (Bld) 0.3 % Normal 0-1 [facility] Comment on above: Performed By: #### L 501.4021, L300.4310, L300.3900, L500.2500, L100.0100 ####[facility] [address] [place], [address] Eosinophils/100 WBC (Bld) 0.4 % Normal 0-5 [facility] Comment on above: Performed By: #### L 501.4021, L300.4310, L300.3900, L500.2500, L100.0100 ####[facility] [address] [place], [address] Erythrocyte distribution width (RBC) [Ratio] 13.3 % Normal 11.6-14.6 [facility] Comment on above: Performed By: #### L 501.4021, L300.4310, L300.3900, L500.2500, L100.0100 ####[facility] [address] [place], [address] Hematocrit (Bld) [Volume fraction] 28.5 % Low 37-47 [facility] Comment on above: Performed By: #### L 501.4021, L300.4310, L300.3900, L500.2500, L100.0100 ####[facility] [address] [place], [address] Hemoglobin (Bld) [Mass/Vol] 10.2 g/dL Low 12.0-15.0 [facility] Comment on above: Performed By: #### L 501.4021, L300.4310, L300.3900, L500.2500, L100.0100 ####[facility] [address] [place], [address] IG% 0.900 Normal 0.0-0.9 [facility] Comment on above: Result Comment: IG% - Immature Granulocytes (promyelocytes, myelocytes andmetamyelocytes) > 1% indicates that a LEFT SHIFT is Present. Performed By: #### L 501.4021, L300.4310, L300.3900, L500.2500, L100.0100 ####[facility] [address] [place], [address] Lymphocytes/100 WBC (Bld) 9.3 % Low 19-41 [facility] Comment on above: Performed By: #### L 501.4021, L300.4310, L300.3900, L500.2500, L100.0100 ####[facility] [address] [place], [address] MCH (RBC) [Entitic mass] 33.0 pg High 27.0-32.0 [facility] Comment on above: Performed By: #### L 501.4021, L300.4310, L300.3900, L500.2500, L100.0100 ####[facility] [address] [place], [address] MCHC (RBC) [Mass/Vol] 35.8 g/dL Normal 32-36 [facility] Comment on above: Performed By: #### L 501.4021, L300.4310, L300.3900, L500.2500, L100.0100 ####[facility] [address] [place], [address] MCV (RBC) [Entitic vol] 92.2 fL Normal 81-99 [facility] Comment on above: Performed By: #### L 501.4021, L300.4310, L300.3900, L500.2500, L100.0100 ####[facility] [address] [place], [address] Monocytes/100 WBC (Bld) 9.9 % Normal 0-10 [facility] Comment on above: Performed By: #### L 501.4021, L300.4310, L300.3900, L500.2500, L100.0100 ####[facility] [address] [place], [address] Neutrophils/100 WBC (Bld) 79.2 % High 47-70 [facility] Comment on above: Performed By: #### L 501.4021, L300.4310, L300.3900, L500.2500, L100.0100 ####[facility] [address] [place], [address] Nucleated RBC (Bld) [#/Vol] 0 10*3/uL Normal 0-5 [facility] Comment on above: Performed By: #### L 501.4021, L300.4310, L300.3900, L500.2500, L100.0100 ####[facility] [address] [place], [address] Platelet mean volume (Bld) [Entitic vol] 9.8 fL Normal 6.2-12.0 [facility] Comment on above: Performed By: #### L 501.4021, L300.4310, L300.3900, L500.2500, L100.0100 ####[facility] [address] [place], [address] Platelets (Bld) [#/Vol] 194 10*3/uL Normal 150-450 [facility] Comment on above: Performed By: #### L 501.4021, L300.4310, L300.3900, L500.2500, L100.0100 ####[facility] [address] [place], [address] RBC (Bld) [#/Vol] 3.09 10*6/uL Low 4.2-5.4 [facility] Comment on above: Performed By: #### L 501.4021, L300.4310, L300.3900, L500.2500, L100.0100 ####[facility] [address] [place], [address] RDW SD 45.2 fl High 35.1-43.9 [facility] Comment on above: Performed By: #### L 501.4021, L300.4310, L300.3900, L500.2500, L100.0100 ####[facility] [address] [place], [address] WBC (Bld) [#/Vol] 6.7 10*3/uL Normal 4.4-11.0 [facility] Comment on above: Performed By: #### L 501.4021, L300.4310, L300.3900, L500.2500, L100.0100 ####[facility] [address] [place], [address] CH 7 - EDon 11-07-2024 Anion gap [Moles/Vol] 15 mmol/L Normal 7-17 [facility] Comment on above: Performed By: #### M GO, IPB, CHM7, HFP #### [facility] (DEFAULT) [address] [place] [address] 78909 Chloride [Moles/Vol] 100 mmol/L Normal 98-108 [facility] Comment on above: Performed By: #### M GA ALBERTO, CHM7, HFP #### [facility] (DEFAULT) [address] [place] [address] 68778 CO2 [Moles/Vol] 21 mmol/L Normal 21-31 [facility] Comment on above: Performed By: #### M GA ALBERTO, CHM7, HFP #### [facility] (DEFAULT) [address] [place] [address] 84141 Creatinine [Mass/Vol] 0.93 mg/dL Normal 0.50-1.20 [facility] Comment on above: Performed By: #### GA FUNES, CHM7, HFP #### [facility] (DEFAULT) [address] [place] [address] 30945 GFR/1.73 sq M.predicted among non-blacks MDRD (S/P/Bld) [Vol rate/Area] 62 mL/min/{1.73_m2} Normal >=60 [facility] Comment on above: Result Comment: Repo rted eGFR is based on the CKD-EPI 2020 equation using creatinine, age, and sex. Performed By: #### GA FUNES, KARL7, HFP #### [facility] (DEFAULT) [address] [place] [address] 32060 Glucose [Mass/Vol] 107 mg/dL Normal Nonfastin -179 mg/dL; Fastin-99 [facility] Comment on above: Performed By: #### GA FUNES, CHM7, HFP #### [facility] (DEFAULT) [address] [place] [address] 95453 Osmolality [Osmolality] 281 mosm/kg Normal 278-305 [facility] Comment on above: Performed By: #### GA FUNES, CHM7, HFP #### [facility] (DEFAULT) [address] [place] [address] 53883 Potassium [Moles/Vol] 4.5 mmol/L Normal 3.5-5.0 [facility] Comment on above: Performed By: #### M GO, IPB, CHM7, HFP #### [facility] (DEFAULT) [address] [place] [address], [place] [address] Sodium [Moles/Vol] 131 mmol/L Low 135-145 [facility] Comment on above: Performed By: #### M GO, IPB, CHM7, HFP #### [facility] (DEFAULT) [address] [place] [address] 07098 Urea nitrogen [Mass/Vol] 22 mg/dL Normal 7-25 [facility] Comment on above: Performed By: #### M GO, IPB, CHM7, HFP #### [facility] (DEFAULT) [address] [place] [address] 70184 Urea nitrogen/Creatinine [Mass ratio] 24 mg/mg Normal [facility] Comment on above: Performed By: #### M GO, IPB, CHM7, HFP #### [facility] (DEFAULT) [address] [place] [address] Cervical spine WO contras ton 11-07-2024 [...] IMPRESSION: No acute fracture or traumatic malalignment. [facility] Radiology Study observation (narrative) [facility] CT HEAD WITHOUT CONTRASTon 0 11-07-2024 [...] Sagittal and coronal. FINDINGS: Status post left-sided craniectomy/cranioplasty. Again present [...] and vertebral arteries. IMPRESSION: Status post left-sided craniectomy/cranioplasty. Again present [...] effect, or acute large territory infarct. Normal [facility] CT Head WO contraston 2024 IMPRESSION: Status post left-sided craniectomy/cranioplasty. Again present [...] Sagittal and coronal. FINDINGS: Status post left-sided craniectomy/cranioplasty. Again present [...] Sagittal and coronal. FINDINGS: Status post left-sided craniectomy/cranioplasty. Again present [...] vertebral arteries. IMPRESSION IMPRESSION: Status post left-sided craniectomy/cranioplasty. Again [...] mass effect, or acute large territory infarct. [facility] Radiology Study observation (narrative) [facility] CT Head WO contrastOrdered B y: Zahida Yang on 11-07-2024 [facility] Work Phone: CT SPINE CERVICAL WITHOUT [...] No acute fracture or traumatic malalignment. Normal [facility] Carbon dioxide, total [Moles /volume] in Central venous bloodOrdered By: Dallas Anand on 11-07-2024 CO2 [Moles/Vol] 23.7 mmol/L 21.0-32.0 [facility] Chloride assayOrdered By: Mario Anand on 11-07-2024 Chloride [Moles/Vol] 98 mmol/L 98-108 [facility] Emergency Department Summary on 11-07-2024 Emergency Department Summary Normal [facility] Eosinophil percentageOrdered By: Dallas Anand on 11-07-2024 Eosinophils/100 WBC (Bld) 0.4 % 0-5 [facility] Erythrocyte distribution wid th ratioOrdered By: Dallasjamison Anand on 11-07-2024 Erythrocyte distribution width (RBC) [Ratio] 13.3 % 11.6-14.6 [facility] Erythrocyte distribution wid th standard deviationOrdered By: Dallas Anand on 11-07-2024 Erythrocyte distribution width (RBC) [Ratio] 45.2 fl High 35.1-43.9 [facility] Glomerular filtration rate ( GFR) estimation/1.73 sq m using serum, plasma, or whole bOrdered By: Dallas Anand on 11-07-2024 GFR/1.73 sq M.predicted among non-blacks MDRD (S/P/Bld) [Vol rate/Area] 54 mL/min/{1.73_m2} Low >60 [facility] Comment on above: mL/min/1.73m2 CKD-EP I Creatinine Equation (2020) Glucose measurement at bedsi deOrdered By: Dallas Anand on 11-07-2024 Glucose [Mass/Vol] 99 mg/dL 74-106 [facility] Comment on above: MANAGEMENT OF PATIEN T CARE PER NURSING PROTOCOL HIGH SENSITIVITY TROPONIN I - SINGLE ORDERon 11-07-2024 hs-Troponin I 9 ng/L Normal <34 [facility] Comment on above: Order Comment: Acute Coronary Syndrome (ACS): Initial Evaluation and Management: [email or web address] Performed By: #### L ABHSTI1, C7ED, TSH #### [facility] (DEFAULT) [address] [address] Hematocrit Auto (Bld) [Volum e fraction]Ordered By: Dallas Anand on 11-07-2024 Hematocrit (Bld) [Volume fraction] 28.5 % Low 37-47 [facility] Hemoglobin measurementOrdere d By: Dallasjamison Anand on 11-07-2024 Hemoglobin (Bld) [Mass/Vol] 10.2 g/dL Low 12.0-15.0 [facility] Immature granulocytes/100 WB C Auto (Bld)Ordered By: Dallasjamison Anand on 11-07-2024 Immature granulocytes/100 WBC (Bld) 0.900 % 0.0-0.9 [facility] Comment on above: IG% - Immature Granu locytes (promyelocytes, myelocytes and metamyelocytes) > 1% indicates that a LEFT SHIFT is Present. International normalized rat io (INR) calculationOrdered By: Dallasjamison Anand on 11-07-2024 INR Coag (Bld) [Relative time] 1.4 {INR} [facility] L499.0042on 11-07-2024 Trop T High Sen Normal <=14 [facility] Comment on above: Result Comment: Canc elled via OM: Order cancelled - Patient discharged Performed By: #### L 499.0042 ####[facility] [address] [place], [place], [address] L499.0043on 11-07-2024 Trop T High Sen Normal <=14 [facility] Comment on above: Result Comment: Canc elled via OM: Order cancelled - Patient discharged Performed By: #### L 499.0043 ####[facility] [address] [place], [address] L501.4021on 11-07-2024 Trop T High Sen 21 ng/L High <=14 [facility] Comment on above: Performed By: #### L 501.4021, L300.4310, L300.3900, L500.2500, L100.0100 ####[facility] [address] [place], [address] Laboratory - Chemistry and C hemistry - challengeOrdered By: Annika Pitts on 11-07-2024 pH (U) 7.0 [pH] 5.0 - 7.0 [facility] Specific gravity (U) [Rel density] 1.014 1.001 - 1.035 [facility] Urobilinogen (U) [Mass/Vol] 1.0 E.U./dL 0.2 E.U/dL, 1.0 E.U/dL [facility] Laboratory - Chemistry and C hemistry - challengeon 11-07-2024 Anion gap [Moles/Vol] 15 mmol/L 7 - 17 mmol/L [facility] Chloride [Moles/Vol] 100 mmol/L 98 - 10 8 mmol/L [facility] CO2 [Moles/Vol] 21 mmol/L 21 - 31 mmol/L [facility] Creatinine [Mass/Vol] 0.93 mg/dL 0.50 - 1.20 mg/dL [facility] Glucose [Mass/Vol] 107 mg/dL 70 - 179 mg/dL [facility] Osmolality Calc [Osmolality] 281 [facility] Potassium [Moles/Vol] 4.5 mmol/L 3.5 - 5.0 mmol/L [facility] Sodium [Moles/Vol] 131 mmol/L Low 135 - 145 mmol/L [facility] Urea nitrogen [Mass/Vol] 22 mg/dL 7 - 25 mg/dL [facility] Urea nitrogen/Creatinine [Mass ratio] 24 mg/mg [facility] TSH Qn 1.934 m[IU]/L [facility] Troponin I.cardiac High sensitivity method [Mass/Vol] 9 ng/L NINF - 34 ng/L [facility] Base excess Calc (Bld) [Moles/Vol] -1.9000 mmol/L -3.0 - 3.0 mmol/L [facility] Calcium.ionized (Bld) [Mass/Vol] 4.45 mg/dL Low 4.60 - 5.30 mg/dL [facility] Carboxyhemoglobin (Bld) [Mass fraction] 1.6 % High NINF - 1.5 % [facility] CO2 (Bld) [Partial pressure] 29 mm[Hg] Low [facility] Glucose [Mass/Vol] 102 mg/dL 70 - 179 mg/dL [facility] HCO3 (Bld) [Moles/Vol] 22 mmol/L 22 - 29 mmol/L [facility] Lactate [Moles/Vol] 0.7 mmol/L 0.5 - 1. 6 mmol/L [facility] Methemoglobin (Bld) [Mass fraction] 1.1 % NINF - 1.5 % [facility] Oxygen (Bld) [Partial pressure] 106 mm[Hg] mm Hg [facility] Comment on above: Venous pO2 is not re commended for the evaluation of oxygen status, clinical correlation is recommended. pH (Bld) 7.48 [pH] High 7.32 - 7.43 [facility] Potassium [Moles/Vol] 4.3 mmol/L 3.5 - 5.0 mmol/L [facility] Sodium [Moles/Vol] 128 mmol/L Low 135 - 145 mmol/L [facility] Laboratory - Coagulationon 0 11-07-2024 INR Coag (Bld) [Relative time] 1.3 {INR} High 0.9 - 1.1 [facility] PT Coag (PPP) [Time] 15.8 s High [facility] Laboratory - Drug toxicology on 11-07-2024 Amphetamine+Methamphet amine Screen (U) [Mass/Vol] Not detected Cutoff: 500 ng/mL [facility] Barbiturates Ql (U) Not detected Cutoff: 200 ng/mL [facility] Benzodiazepines Ql (U) Not detected Cutof f: 200 ng/mL [facility] Buprenorphine Ql (U) Not detected Cutoff: 5 ng/mL [facility] Cannabinoids Screen Ql (U) Not detected Cutoff: 50 ng/mL [facility] Cocaine Ql (U) Not detected Cutoff: 150 ng/mL [facility] fentaNYL Ql (U) Not detected Cutoff: 1 ng/mL [facility] Methadone Ql (U) Not detected Cutoff: 300 ng/mL [facility] Opiates Ql (U) Not detected Cutoff: 300 ng/mL [facility] oxyCODONE Ql (U) Not detected Cutoff: 100 ng/mL [facility] Ethanol Ql (Bld) mg/dL NINF - 10 mg/dL [facility] Laboratory - Hematology and Cell countson 11-07-2024 Basophils (Bld) [#/Vol] K/uL 0.00 - 0.15 K/uL [facility] Basophils/100 WBC (Bld) 0.3 % [facility] Differential cell count method Nom (Bld) Electronic Differential O [facility] Eosinophils (Bld) [#/Vol] K/uL 0.00 - 0.42 K/uL [facility] Eosinophils/100 WBC (Bld) 0.4 % [facility] Erythrocyte distribution width (RBC) [Ratio] 13.1 % 10.8 - 14.9 % [facility] Hematocrit (Bld) [Volume fraction] 29 % Low 34.9 - 44.3 % [facility] Hemoglobin (Bld) [Mass/Vol] 10.5 g/dL Low 11.4 - 15.2 g/dL [facility] Immature granulocytes (Bld) [#/Vol] K/uL NINF - 0.08 K/uL [facility] Immature granulocytes/100 WBC (Bld) 0.4 % [facility] Lymphocytes (Bld) [#/Vol] 0.69 10*3/uL Low 1.16 - 3.51 K/uL [facility] Lymphocytes/100 WBC (Bld) 10.2 % [facility] MCH (RBC) [Entitic mass] 33.1 pg 25.9 - 33.9 pg [facility] MCHC (RBC) [Mass/Vol] 36.2 g/dL High 31.4 - 35.9 g/dL [facility] MCV (RBC) [Entitic vol] 91.5 fL 79.6 - 97.7 fL [facility] Monocytes (Bld) [#/Vol] 0.62 10*3/uL 0.22 - 0.87 K/uL [facility] Monocytes/100 WBC (Bld) 9.2 % [facility] Neutrophils (Bld) [#/Vol] 5.35 10*3/uL 1.64 - 7.28 K/uL [facility] Nucleated RBC/100 WBC (Bld) [Ratio] 0 % NINF [facility] Platelet mean volume (Bld) [Entitic vol] 10 fL 8.5 - 12.2 fL [facility] Platelets (Bld) [#/Vol] 169 10*3/uL 150 - 393 K/uL [facility] RBC (Bld) [#/Vol] 3.17 10*6/uL Low [facility] Segmented neutrophils/100 WBC (Bld) 79.5 % [facility] WBC (Bld) [#/Vol] 6.74 10*3/uL 3.99 - 11.19 K/uL [facility] Hematocrit (Bld) [Volume fraction] 33 % Low 34 - 46 % [facility] Hemoglobin (Bld) [Mass/Vol] 11.1 g/dL Low 11.4 - 15.2 g/dL [facility] Laboratory - Specimen inform ationOrdered By: Annika Pitts on 11-07-2024 Appearance (U) Clear Clear [facility] Color (U) Yellow Yellow [facility] Laboratory - Specimen inform ationon 11-07-2024 Specimen source Nom (Unsp spec) Venous [facility] Laboratory - UrinalysisOrder ed By: Annika Pitts on 11-07-2024 Bacteria LM Ql (Urine sed) PRESENT Abnormal ABSENT [facility] Epithelial cells.squamous LM Ql (Urine sed) 0-2/hpf 0-2/hpf, 3-5/hpf = 1+ [facility] Glucose Test strip (U) [Mass/Vol] Negative Negative [facility] Ketones (U) [Mass/Vol] Negative Negative [facility] Leukocyte esterase Test strip Ql (U) Moderate Abnormal Negative [facility] Nitrite Ql (U) Positive Abnormal Negative [facility] Protein (U) [Mass/Vol] Negative Negative [facility] RBC (U) [#/Vol] Negative Negative [facility] RBC LM.HPF (Urine sed) [#/Area] 0-[address] [facility] WBC LM.HPF (Urine sed) [#/Area] 6 - [address] [facility] MCV (mean corpuscular volume ) determinationOrdered By: Dallas Anand on 11-07-2024 MCV (RBC) [Entitic vol] 92.2 fL 81-99 [facility] Mean corpuscular hemoglobin (MCH) determinationOrdered By: Dallas Anand on 11-07-2024 MCH (RBC) [Entitic mass] 33.0 pg High 27.0-32.0 [facility] Mean corpuscular hemoglobin concentration (MCHC) determinationOrdered By: Dallas Anand on 11-07-2024 MCHC (RBC) [Mass/Vol] 35.8 g/dL 32-36 [facility] Mean platelet volume determi nationOrdered By: Dallas Anand on 11-07-2024 Platelet mean volume (Bld) [Entitic vol] 9.8 fL 6.2-12.0 [facility] Monocyte percentageOrdered B y: Dallas Anand on 11-07-2024 Monocytes/100 WBC (Bld) 9.9 % 0-10 [facility] Neutrophil percentageOrdered By: Dallas Anand on 11-07-2024 Neutrophils/100 WBC (Bld) 79.2 % High 47-70 [facility] No Panel InformationOrdered By: Annika Pitts on 11-07-2024 Interpretation and review of laboratory results Abnormal [facility] No Panel Informationon 11-07 Interpretation and review of laboratory results Normal [facility] For medical purposes only. Positive results are unconfirmed unless otherwise noted. [facility] eGFR, CKD-EPI, Female 60 - PINF [facility] Comment on above: Reported eGFR is bas ed on the CKD-EPI 2020 equation using creatinine, age, and sex. Interpretation and review of laboratory results Abnormal [facility] ABO/RH(D) TYPE AB NEG [facility] Specimen Expiration 11/10/2024 23:59 [facility] Interpretation and review of laboratory results Normal [facility] Interpretation and review of laboratory results Normal [facility] Interpretation and review of laboratory results Normal [facility] Interpretation and review of laboratory results Abnormal [facility] Interpretation and review of laboratory results Abnormal [facility] Interpretation and review of laboratory results Abnormal [facility] Oxyhemoglobin 96 % 94 - 98 % [facility] Nucleated red blood cell per centageOrdered By: Dallas Anand on 11-07-2024 Nucleated RBC/100 WBC (Bld) [Ratio] 0 % 0-5 [facility] PROTIME-INRon 11-07-2024 INR Coag (PPP) [Relative time] 1.3 {INR} High 0.9-1.1 [facility] Comment on above: Performed By: #### M GO, IPB, CHM7, HFP #### [facility] (DEFAULT) [address] [place] [address] PT Coag (PPP) [Time] 15.8 s High 11.9-14.2 [facility] Comment on above: Performed By: #### M GO, IPB, CHM7, HFP #### [facility] (DEFAULT) [address] [place] [address] Partial Thromboplast Timeon 11-07-2024 aPTT Coag (Bld) [Time] 33.0 s Normal 24.1-36.2 [facility] Comment on above: Performed By: #### L 501.4021, L300.4310, L300.3900, L500.2500, L100.0100 ####[facility] [address] [place], [address] Platelet countOrdered By: Mario Anand on 11-07-2024 Platelets (Bld) [#/Vol] 194 10*3/uL 150-450 [facility] Portable XR Chest Viewson IMPRESSION: No [...] disease or early developing edema. Clinically correlate. [facility] Radiology Study observation (narrative) [facility] Portable XR Chest ViewsOrder ed By: Adele Luna on 11-07-2024 [facility] Work Phone: Potassium measurement (mass/ volume)Ordered By: Dallas Anand on 11-07-2024 Potassium (Unsp spec) [Mass/Vol] 4.5 mmol/L 3.3-5.1 [facility] Prothrombin Time w/INRon INR Coag (PPP) [Relative time] 1.4 {INR} Normal [facility] Comment on above: Performed By: #### L 501.4021, L300.4310, L300.3900, L500.2500, L100.0100 ####[facility] [address] [place], [address] PT Coag (PPP) [Time] 17.1 s High 11.7-14.9 [facility] Comment on above: Performed By: #### L 501.4021, L300.4310, L300.3900, L500.2500, L100.0100 ####[facility] [address] [place], [address] Prothrombin timeOrdered By: Dallas Anand on 11-07-2024 PT Coag (PPP) [Time] 17.1 s High 11.7-14.9 [facility] RBC Auto (Bld) [#/Vol]Ordere d By: Dallas Anand on 11-07-2024 RBC (Bld) [#/Vol] 3.09 10*6/uL Low 4.2-5.4 [facility] STROKE Brain/Head without Co nton 11-07-2024 STROKE Brain/Head without Cont Normal [facility] Serum creatinine measurement (mass/volume)Ordered By: Dallas Anand on 11-07-2024 Creatinine [Mass/Vol] 1.04 mg/dL 0.70-1.20 [facility] Serum glucose measurement (m ass/volume)Ordered By: Dallas Anand on 11-07-2024 Glucose [Mass/Vol] 101 mg/dL High 70-99 [facility] Serum or plasma calcium ena urement (mass/volume)Ordered By: Dallasjamison Anand on 11-07-2024 Calcium [Mass/Vol] 9.1 mg/dL 7.6-11.0 [facility] Serum or plasma urea nitroge n measurement (mass/volume)Ordered By: Dallas Anand on 11-07-2024 Urea nitrogen [Mass/Vol] 23 mg/dL High 4-19 [facility] Sodium levelOrdered By: Dallas Anand on 11-07-2024 Sodium [Moles/Vol] 131 mmol/L Low 133-145 [facility] TSHon 11-07-2024 TSH 1.934 uIU/mL Normal 0.550-4.780 [facility] Comment on above: Performed By: #### M GA ALBERTO, CHM7, HFP #### [facility] (DEFAULT) [address] [place] [address] TYPE AND SCREENon 11-07-2024 ABO/RH(D) TYPE AB NEG Normal [facility] Comment on above: Performed By: #### M REMY IPB, CHM7, HFP #### [facility] (DEFAULT) [address] [place] [address] Specimen Expiration 11/10/2024 23:[address] [facility] Comment on above: Performed By: #### M REMY IPB, CHM7, HFP #### [facility] (DEFAULT) [address] [place] [address] Troponin T.cardiac [Mass/vol ume] in Serum or Plasma by High sensitivity methodOrdered By: Dallas Anand on 11-07-2024 Troponin T.cardiac High sensitivity method [Mass/Vol] 21 ng/L High <14 [facility] Comment on above: Delta: 16 on URINALYSIS REFLEX TO CULTURE PERFORMABLEon 11-07-2024 Appearance (U) Clear Normal Clear [facility] Comment on above: Order Comment: For i ndwelling catheters, specimen collection is acceptable on catheter day 1 and 2 only. ? Performed By: #### U [id number] #### [facility] (DEFAULT) [address] [address] Bacteria [address] [facility] Comment on above: Order Comment: For i ndwelling catheters, specimen collection is acceptable on catheter day 1 and 2 only. ? Performed By: #### U [id number] #### [facility] (DEFAULT) [address] [address] Blood Urine Negative Normal Negative [facility] Comment on above: Order Comment: For i ndwelling catheters, specimen collection is acceptable on catheter day 1 and 2 only. ? Performed By: #### U [id number] #### [facility] (DEFAULT) [address] [address] Color (U) Yellow Normal Yellow [facility] Comment on above: Order Comment: For i ndwelling catheters, specimen collection is acceptable on catheter day 1 and 2 only. ? Performed By: #### U [id number] #### [facility] (DEFAULT) [address] [address] Glucose Ql (U) Negative Normal Negative [facility] Comment on above: Order Comment: For i ndwelling catheters, specimen collection is acceptable on catheter day 1 and 2 only. ? Performed By: #### U [id number] #### [facility] (DEFAULT) [address] [address] Ketones Ql (U) Negative Normal Negative [facility] Comment on above: Order Comment: For i ndwelling catheters, specimen collection is acceptable on catheter day 1 and 2 only. ? Performed By: #### U [id number] #### [facility] (DEFAULT) [address] [place] [address] Leukocyte esterase Test strip Ql (U) Moderate Abnormal Negative [facility] Comment on above: Order Comment: For i ndwelling catheters, specimen collection is acceptable on catheter day 1 and 2 only. ? Performed By: #### U [id number] #### [facility] (DEFAULT) [address] [place] [address] Nitrites Urine Positive Abnormal Negative [facility] Comment on above: Order Comment: For i ndwelling catheters, specimen collection is acceptable on catheter day 1 and 2 only. ? Performed By: #### U [id number] #### [facility] (DEFAULT) [address] [place] [address] pH (U) 7.0 [pH] Normal 5.0-7.0 [facility] Comment on above: Order Comment: For i ndwelling catheters, specimen collection is acceptable on catheter day 1 and 2 only. ? Performed By: #### U [id number] #### [facility] (DEFAULT) [address] [place] [address] Protein Urine Negative Normal Negative [facility] Comment on above: Order Comment: For i ndwelling catheters, specimen collection is acceptable on catheter day 1 and 2 only. ? Performed By: #### U [id number] #### [facility] (DEFAULT) [address] [place] [address] RBC Urine 0-2 Normal 0-2 [facility] Comment on above: Order Comment: For i ndwelling catheters, specimen collection is acceptable on catheter day 1 and 2 only. ? Performed By: #### U [id number] #### [facility] (DEFAULT) [address] [place] [address] Specific [place] Urine 1.014 Normal 1.001-1.035 [facility] Comment on above: Order Comment: For i ndwelling catheters, specimen collection is acceptable on catheter day 1 and 2 only. ? Performed By: #### U [id number] #### [facility] (DEFAULT) [address] [address] Squamous/Epithelial Cells, Urine 0-2/hpf Normal 0-2/hpf, 3-5/hpf = 1+ [facility] Comment on above: Order Comment: For i ndwelling catheters, specimen collection is acceptable on catheter day 1 and 2 only. ? Performed By: #### U [id number] #### [facility] (DEFAULT) [address] [address] Urobilinogen Urine 1.0 E.U./dL Normal 0.2 E.U/d L, 1.0 E.U/dL [facility] Comment on above: Order Comment: For i ndwelling catheters, specimen collection is acceptable on catheter day 1 and 2 only. ? Performed By: #### U [id number] #### [facility] (DEFAULT) [address] [address] WBC Urine 6 - 10 Abnormal 0 - 5 [facility] Comment on above: Order Comment: For i ndwelling catheters, specimen collection is acceptable on catheter day 1 and 2 only. ? Performed By: #### U [id number] #### [facility] (DEFAULT) [address] [address] URINE DRUG SCREEN 1011-07 Amphetamine/Methamphet amine Not detected Normal Cutoff: 500 ng/mL [facility] Comment on above: Order Comment: For m edical purposes only. Positive results are unconfirmed unless otherwise noted. Performed By: #### M GO, IPB, CHM7, HFP #### [facility] (DEFAULT) [address] [address] Barbiturates Not detected Normal Cutoff: 200 ng/mL [facility] Comment on above: Order Comment: For m edical purposes only. Positive results are unconfirmed unless otherwise noted. Performed By: #### M GO, IPB, CHM7, HFP #### [facility] (DEFAULT) [address] [address] Benzodiazepines Not detected Normal Cutoff: 200 ng/mL [facility] Comment on above: Order Comment: For m edical purposes only. Positive results are unconfirmed unless otherwise noted. Performed By: #### M GO, IPB, CHM7, HFP #### [facility] (DEFAULT) [address] [place] [address] Buprenorphine Not detected Normal Cutoff: 5 ng/mL [facility] Comment on above: Order Comment: For m edical purposes only. Positive results are unconfirmed unless otherwise noted. Performed By: #### M GO, IPB, CHM7, HFP #### [facility] (DEFAULT) [address] [place] [address] Cannabinoids Screen Ql (U) Not detected Normal Cutoff: 50 ng/mL [facility] Comment on above: Order Comment: For m edical purposes only. Positive results are unconfirmed unless otherwise noted. Performed By: #### M GO, IPB, CHM7, HFP #### [facility] (DEFAULT) [address] [place] [address] Cocaine Not detected Normal Cutoff: 150 ng/mL [facility] Comment on above: Order Comment: For m edical purposes only. Positive results are unconfirmed unless otherwise noted. Performed By: #### M GO, IPB, CHM7, HFP #### [facility] (DEFAULT) [address] [place] [address] Fentanyl Not detected Normal Cutoff: 1 ng/mL [facility] Comment on above: Order Comment: For m edical purposes only. Positive results are unconfirmed unless otherwise noted. Performed By: #### M GO, IPB, CHM7, HFP #### [facility] (DEFAULT) [address] [place] [address] Methadone Not detected Normal Cutoff: 300 ng/mL [facility] Comment on above: Order Comment: For m edical purposes only. Positive results are unconfirmed unless otherwise noted. Performed By: #### M GO, IPB, CHM7, HFP #### [facility] (DEFAULT) [address] [place] [address] Opiates Not detected Normal Cutoff: 300 ng/mL [facility] Comment on above: Order Comment: For m edical purposes only. Positive results are unconfirmed unless otherwise noted. Performed By: #### M GA ALBERTO, CHM7, HFP #### [facility] (DEFAULT) [address] [address] Oxycodone Not detected Normal Cutoff: 100 ng/mL [facility] Comment on above: Order Comment: For m edical purposes only. Positive results are unconfirmed unless otherwise noted. Performed By: #### M GA ALBERTO, CHM7, HFP #### [facility] (DEFAULT) [address] [address] VENOUS BLOOD GAS (FULL PANEL )on 11-07-2024 Base Excess -1.9 mmol/L Normal -3.0-3.0 [facility] Comment on above: Performed By: #### Eva SVALL #### [facility] (DEFAULT) [address] [address] Carboxyhemoglobin 1.6 % High <=1.5 [facility] Comment on above: Performed By: #### Eva SVALL #### [facility] (DEFAULT) [address] [address] Glucose [Mass/Vol] 102 mg/dL Normal Nonfastin g Glucose: 70-179 [facility] Comment on above: Performed By: #### G SVALL #### [facility] (DEFAULT) [address] [address] HCO3 (Bld) [Moles/Vol] 22 mmol/L Normal 22-29 [facility] Comment on above: Performed By: #### G SVALL #### [facility] (DEFAULT) [address] [address] Hematocrit (Bld) [Volume fraction] 33 % Low 34-46 [facility] Comment on above: Performed By: #### G SVALL #### [facility] (DEFAULT) [address] [address] Hemoglobin (Bld) [Mass/Vol] 11.1 g/dL Low 11.4-15.2 [facility] Comment on above: Performed By: #### G SVALL #### [facility] (DEFAULT) [address] [place] [address] Ionized Calcium, Whole Blood 4.45 mg/dL Low 4.60-5.30 [facility] Comment on above: Performed By: #### Eva SVALL #### [facility] (DEFAULT) [address] [place] [address] Lactate, Whole Blood 0.7 mmol/L Normal 0.5-1.6 [facility] Comment on above: Performed By: #### Eva SVALL #### [facility] (DEFAULT) [address] [place] [address] Methemoglobin 1.1 % Normal <=1.5 [facility] Comment on above: Performed By: #### Eva SVALL #### [facility] (DEFAULT) [address] [place] [address] Oxygen saturation in Blood 99 % High 70-80 [facility] Comment on above: Performed By: #### Eva SVALL #### [facility] (DEFAULT) [address] [place] [address] Oxyhemoglobin 96 % Normal 94-98 [facility] Comment on above: Performed By: #### G SVALL #### [facility] (DEFAULT) [address] [place] [address] pCO2, Venous 29 mm Hg Low 36-52 [facility] Comment on above: Performed By: #### Eva SVALL #### [facility] (DEFAULT) [address] [place] [address] pH, Venous 7.48 High 7.32-7.43 [facility] Comment on above: Performed By: #### G SVALL #### [facility] (DEFAULT) [address] [place] [address] pO2, Venous [address] [facility] Comment on above: Result Comment: Veno us pO2 is not recommended for the evaluation of oxygen status, clinical correlation is recommended. Performed By: #### G SVALL #### [facility] (DEFAULT) [address] [place] [address] Potassium [Moles/Vol] 4.3 mmol/L Normal 3.5-5.0 [facility] Comment on above: Performed By: #### G SVALL #### [facility] (DEFAULT) [address] [place] [address] Sodium [Moles/Vol] 128 mmol/L Low 135-145 [facility] Comment on above: Performed By: #### G SVALL #### [facility] (DEFAULT) [address] [place] [address] Specimen type Nom (Spec) Venous Normal [facility] Comment on above: Performed By: #### G SVALL #### [facility] (DEFAULT) [address] [place] [address] Vital signson 11-07-2024 Oxygen saturation in Blood 99 % High 70 - 80 % [facility] White blood cell (WBC) count Ordered By: Dallas Anand on 11-07-2024 WBC (Bld) [#/Vol] 6.7 10*3/uL 4.4-11.0 [facility] XR CHEST 1 VIEW PORTABLEon 0 [...] or early developing edema. Clinically correlate. Normal [facility] XR PELVIS 1-2 VIEWSon 2024 XR [...] pubic symphysis. No displaced fracture evident. Normal [facility] XR Pelvis 2 Viewson 11-08-19 IMPRESSION: [...] the pubic symphysis. No displaced fracture evident. [facility] Radiology Study observation (narrative) [facility] XR Pelvis 2 ViewsOrdered By: Damien Beasley on 11-07-[address] [facility] Work Phone: Absolute lymphocyte countOrd ered By: Hayden Sadler on 09-27-2024 Lymphocytes Auto (Unsp spec) [#/Vol] 0.70 10*3/uL Low 0.83-4.51 [facility] Absolute neutrophil countOrd ered By: Hayden Sadler on 09-27-2024 Neutrophils (Bld) [#/Vol] 5.1 10*3/uL 2.0-7.7 [facility] Activated partial thrombopla stin time (aPTT) in platelet poor plasma by coagulation aOrdered By: Hayden Sadler on 09-27-2024 aPTT Coag (PPP) [Time] 32.4 s 24.1-36.2 [facility] Anion gap in Serum or Plasma Ordered By: Hayden Sadler on 09-27-2024 Anion gap [Moles/Vol] 10 mmol/L 5-15 [facility] Automated lymphocyte count a s percentage of total leukocytesOrdered By: Hayden Sadler on 09-27-2024 Lymphocytes/100 WBC Auto (Unsp spec) 10.8 % Low 19-41 [facility] BUN/creatinine ratioOrdered By: Hayden Sadler on 09-27-2024 Urea nitrogen/Creatinine [Mass ratio] 23.3 mg/mg High 10-20 [facility] Basic Metabolic Profile (BMP )on 09-27-2024 BUN/CRE 23.3 RATIO High 10-20 [facility] Comment on above: Performed By: #### L 500.2500, L501.4021, L100.0100 ####[facility] [address] [place], [place], [address] Calcium [Mass/Vol] 9.3 mg/dL Normal 7.6-11.0 [facility] Comment on above: Performed By: #### L 500.2500, L501.4021, L100.0100 ####[facility] [address] [place] [place], [address] Chloride [Moles/Vol] 95 mmol/L Low 98-108 [facility] Comment on above: Performed By: #### L 500.2500, L501.4021, L100.0100 ####[facility] [address] [place], [address] CO2 [Moles/Vol] 22.8 mmol/L Normal 21.0-32.0 [facility] Comment on above: Performed By: #### L 500.2500, L501.4021, L100.0100 ####[facility] [address] [place], [address] Creatinine [Mass/Vol] 0.97 mg/dL Normal 0.70-1.20 [facility] Comment on above: Performed By: #### L 500.2500, L501.4021, L100.0100 ####[facility] [address] [place], [address] ECRCL 33.23 ml/min Low 50-250 [facility] Comment on above: Performed By: #### L 500.2500, L501.4021, L100.0100 ####[facility] [address] [place], [address] GAP 10 Normal 5-15 [facility] Comment on above: Performed By: #### L 500.2500, L501.4021, L100.0100 ####[facility] [address] [place], [address] GFR/1.73 sq M.predicted among non-blacks MDRD (S/P/Bld) [Vol rate/Area] 59 mL/min/{1.73_m2} Low >60 [facility] Comment on above: Result Comment: mL/m in/1.73m2 CKD-EPI Creatinine Equation (2020) Performed By: #### L 500.2500, L501.4021, L100.0100 ####[facility] [address] [place], [address] Glucose [Mass/Vol] 160 mg/dL High 70-99 [facility] Comment on above: Performed By: #### L 500.2500, L501.4021, L100.0100 ####[facility] [address] [place], [address] Potassium [Moles/Vol] 4.6 mmol/L Normal 3.3-5.1 [facility] Comment on above: Performed By: #### L 500.2500, L501.4021, L100.0100 ####[facility] [address] [place], [address] Sodium [Moles/Vol] 128 mmol/L Low 133-145 [facility] Comment on above: Performed By: #### L 500.2500, L501.4021, L100.0100 ####[facility] [address] [place], [address] Urea nitrogen [Mass/Vol] 23 mg/dL High 4-19 [facility] Comment on above: Performed By: #### L 500.2500, L501.4021, L100.0100 ####[facility] [address] [place], [address] Basophil percentageOrdered B y: Hayden Doroteo on 09-27-2024 Basophils/100 WBC (Bld) 0.3 % 0-1 [facility] CBC W/Diff, Automatedon - Absolute Lymph 0.70 X10 3/uL Low 0.83-4.51 [facility] Comment on above: Performed By: #### L 500.2500, L501.4021, L100.0100 ####[facility] [address] [place], [address] Absolute Neut 5.1 X10 3/uL Normal 2.0-7.7 [facility] Comment on above: Performed By: #### L 500.2500, L501.4021, L100.0100 ####[facility] [address] [place], [address] Basophils/100 WBC (Bld) 0.3 % Normal 0-1 [facility] Comment on above: Performed By: #### L 500.2500, L501.4021, L100.0100 ####[facility] [address] [place], [address] Eosinophils/100 WBC (Bld) 1.1 % Normal 0-5 [facility] Comment on above: Performed By: #### L 500.2500, L501.4021, L100.0100 ####[facility] [address] [place], [address] Erythrocyte distribution width (RBC) [Ratio] 13.8 % Normal 11.6-14.6 [facility] Comment on above: Performed By: #### L 500.2500, L501.4021, L100.0100 ####[facility] [address] [place], [address] Hematocrit (Bld) [Volume fraction] 31.3 % Low 37-47 [facility] Comment on above: Performed By: #### L 500.2500, L501.4021, L100.0100 ####[facility] [address] [place], [address] Hemoglobin (Bld) [Mass/Vol] 11.0 g/dL Low 12.0-15.0 [facility] Comment on above: Performed By: #### L 500.2500, L501.4021, L100.0100 ####[facility] [address] [place], [address] IG% 0.800 Normal 0.0-0.9 [facility] Comment on above: Result Comment: IG% - Immature Granulocytes (promyelocytes, myelocytes andmetamyelocytes) > 1% indicates that a LEFT SHIFT is Present. Performed By: #### L 500.2500, L501.4021, L100.0100 ####[facility] [address] [place], [address] Lymphocytes/100 WBC (Bld) 10.8 % Low 19-41 [facility] Comment on above: Performed By: #### L 500.2500, L501.4021, L100.0100 ####[facility] [address] [place], [address] MCH (RBC) [Entitic mass] 32.4 pg High 27.0-32.0 [facility] Comment on above: Performed By: #### L 500.2500, L501.4021, L100.0100 ####[facility] [address] [place], [address] MCHC (RBC) [Mass/Vol] 35.1 g/dL Normal 32-36 [facility] Comment on above: Performed By: #### L 500.2500, L501.4021, L100.0100 ####[facility] [address] [place], [address] MCV (RBC) [Entitic vol] 92.3 fL Normal 81-99 [facility] Comment on above: Performed By: #### L 500.2500, L501.4021, L100.0100 ####[facility] [address] [place], [address] Monocytes/100 WBC (Bld) 8.3 % Normal 0-10 [facility] Comment on above: Performed By: #### L 500.2500, L501.4021, L100.0100 ####[facility] [address] [place], [address] Neutrophils/100 WBC (Bld) 78.7 % High 47-70 [facility] Comment on above: Performed By: #### L 500.2500, L501.4021, L100.0100 ####[facility] [address] [place], [address] Nucleated RBC (Bld) [#/Vol] 0 10*3/uL Normal 0-5 [facility] Comment on above: Performed By: #### L 500.2500, L501.4021, L100.0100 ####[facility] [address] [place], [address] Platelet mean volume (Bld) [Entitic vol] 9.9 fL Normal 6.2-12.0 [facility] Comment on above: Performed By: #### L 500.2500, L501.4021, L100.0100 ####[facility] [address] [place], [address] Platelets (Bld) [#/Vol] 219 10*3/uL Normal 150-450 [facility] Comment on above: Performed By: #### L 500.2500, L501.4021, L100.0100 ####[facility] [address] [place], [address] RBC (Bld) [#/Vol] 3.39 10*6/uL Low 4.2-5.4 [facility] Comment on above: Performed By: #### L 500.2500, L501.4021, L100.0100 ####[facility] [address] [place], [address] RDW SD 46.5 fl High 35.1-43.9 [facility] Comment on above: Performed By: #### L 500.2500, L501.4021, L100.0100 ####[facility] [address] [place], [address] WBC (Bld) [#/Vol] 6.5 10*3/uL Normal 4.4-11.0 [facility] Comment on above: Performed By: #### L 500.2500, L501.4021, L100.0100 ####[facility] [address] [place], [address] Carbon dioxide, total [Moles /volume] in Central venous bloodOrdered By: Hayden Sadler on 09-27-2024 CO2 [Moles/Vol] 22.8 mmol/L 21.0-32.0 [facility] Chest PA and Lateralon 09-27 Chest PA and Lateral Normal [facility] Chloride assayOrdered By: Delfin Sadler on 09-27-2024 Chloride [Moles/Vol] 95 mmol/L Low 98-108 [facility] Emergency Department Summary on 09-27-2024 Emergency Department Summary Normal [facility] Eosinophil percentageOrdered By: Hayden Sadler on 09-27-2024 Eosinophils/100 WBC (Bld) 1.1 % 0-5 [facility] Erythrocyte distribution wid th (RBC) [Ratio]Ordered By: Hayden Sadler on 09-27-2024 Erythrocyte distribution width (RBC) [Entitic vol] 46.5 fL High 35.1-43.9 [facility] Erythrocyte distribution wid th ratioOrdered By: Hayden Sadler on 09-27-2024 Erythrocyte distribution width (RBC) [Ratio] 13.8 % 11.6-14.6 [facility] Erythrocyte distribution wid th standard deviationOrdered By: Hayden Sadler on 09-27-2024 Erythrocyte distribution width (RBC) [Ratio] 46.5 fl High 35.1-43.9 [facility] Estimation of creatinine guido aranceOrdered By: Hayden Sadler on 09-27-2024 Estimated Creatinine Clearance Calc 33.23 ml/min Low 50-250 [facility] GFR/1.73 sq M.predicted maicol g non-blacks MDRD (S/P/Bld) [Vol rate/Area]Ordered By: Hayden Sadler on 09-27-2024 Estimated GFR (MDRD) Non-Af Amer 59 Low >60 [facility] Comment on above: mL/min/1.73m2 CKD-EP I Creatinine Equation (2020) Glomerular filtration rate ( GFR) estimation/1.73 sq m using serum, plasma, or whole bOrdered By: Hayden Sadler on 09-27-2024 GFR/1.73 sq M.predicted among non-blacks MDRD (S/P/Bld) [Vol rate/Area] 59 mL/min/{1.73_m2} Low >60 [facility] Comment on above: mL/min/1.73m2 CKD-EP I Creatinine Equation (2020) Hematocrit Auto (Bld) [Volum e fraction]Ordered By: Hayden Sadler on 09-27-2024 Hematocrit (Bld) [Volume fraction] 31.3 % Low 37-47 [facility] Hemoglobin measurementOrdere d By: Hayden Sadler on 09-27-2024 Hemoglobin (Bld) [Mass/Vol] 11.0 g/dL Low 12.0-15.0 [facility] Immature granulocytes/100 WB C Auto (Bld)Ordered By: Hayden Sadler on 09-27-2024 Immature granulocytes/100 WBC (Bld) 0.800 % 0.0-0.9 [facility] Comment on above: IG% - Immature Granu locytes (promyelocytes, myelocytes and metamyelocytes) > 1% indicates that a LEFT SHIFT is Present. International normalized rat io (INR) calculationOrdered By: Hayden Sadler on 09-27-2024 INR Coag (Bld) [Relative time] 1.1 {INR} [facility] L499.0042on 09-27-2024 Trop T High Sen 14 ng/L Normal <=14 [facility] Comment on above: Performed By: #### L 499.0042 ####[facility] [address] [place], [address] L499.0043on 09-27-2024 Trop T High Sen Normal <=14 [facility] Comment on above: Result Comment: CANC ELLATION ORDER Performed By: #### L 499.0043 ####[facility] [address] [place], [address] L501.4021on 09-27-2024 Trop T High Sen 16 ng/L High <=14 [facility] Comment on above: Performed By: #### L 500.2500, L501.4021, L100.0100 ####[facility] [address] [place], [address] Lymphocytes Auto (Unsp spec) [#/Vol]Ordered By: Hayden Sadler on 09-27-2024 Lymphocytes (Bld) [#/Vol] 0.70 10*3/uL Low 0.83-4.51 [facility] Lymphocytes/100 WBC Auto (Un sp spec)Ordered By: Hayden Sadler on 09-27-2024 Lymphocytes/100 WBC (Bld) 10.8 % Low 19-41 [facility] MCV (mean corpuscular volume ) determinationOrdered By: Hayden Sadler on 09-27-2024 MCV (RBC) [Entitic vol] 92.3 fL 81-99 [facility] Mean corpuscular hemoglobin (MCH) determinationOrdered By: Hayden Sadler on 09-27-2024 MCH (RBC) [Entitic mass] 32.4 pg High 27.0-32.0 [facility] Mean corpuscular hemoglobin concentration (MCHC) determinationOrdered By: Hayden Sadler on 09-27-2024 MCHC (RBC) [Mass/Vol] 35.1 g/dL 32-36 [facility] Mean platelet volume determi nationOrdered By: Hayden Sadler on 09-27-2024 Platelet mean volume (Bld) [Entitic vol] 9.9 fL 6.2-12.0 [facility] Monocyte percentageOrdered B y: Hayden Sadler on 09-27-2024 Monocytes/100 WBC (Bld) 8.3 % 0-10 [facility] Neutrophil percentageOrdered By: Hayden Sadler on 09-27-2024 Neutrophils/100 WBC (Bld) 78.7 % High 47-70 [facility] Nucleated red blood cell per centageOrdered By: Hayden Sadler on 09-27-2024 Nucleated RBC/100 WBC (Bld) [Ratio] 0 % 0-5 [facility] Partial Thromboplast Timeon 09-27-2024 aPTT Coag (Bld) [Time] 32.4 s Normal 24.1-36.2 [facility] Comment on above: Performed By: #### L 300.4310, L300.3900 ####[facility] [address] [place], [address] Platelet countOrdered By: Delfin Sadler on 09-27-2024 Platelets (Bld) [#/Vol] 219 10*3/uL 150-450 [facility] Potassium (Unsp spec) [Mass/ Vol]Ordered By: Hayden Sadler on 09-27-2024 Potassium [Moles/Vol] 4.6 mmol/L 3.3-5.1 [facility] Potassium measurement (mass/ volume)Ordered By: Hayden Sadler on 09-27-2024 Potassium (Unsp spec) [Mass/Vol] 4.6 mmol/L 3.3-5.1 [facility] Prothrombin Time w/INRon INR Coag (PPP) [Relative time] 1.1 {INR} Normal [facility] Comment on above: Performed By: #### L 300.4310, L300.3900 ####[facility] [address] [place], [address] PT Coag (PPP) [Time] 14.8 s Normal 11.7-14.9 [facility] Comment on above: Performed By: #### L 300.4310, L300.3900 ####[facility] [address] [place], [address] Prothrombin timeOrdered By: Hayden Sadler on 09-27-2024 PT Coag (PPP) [Time] 14.8 s 11.7-14.9 [facility] RBC Auto (Bld) [#/Vol]Ordere d By: Hayden Sadler on 09-27-2024 RBC (Bld) [#/Vol] 3.39 10*6/uL Low 4.2-5.4 [facility] Serum creatinine measurement (mass/volume)Ordered By: Hayden Sadler on 09-27-2024 Creatinine [Mass/Vol] 0.97 mg/dL 0.70-1.20 [facility] Serum glucose measurement (m ass/volume)Ordered By: Hayden Sadler on 09-27-2024 Glucose [Mass/Vol] 160 mg/dL High 70-99 [facility] Serum or plasma calcium ena urement (mass/volume)Ordered By: Hayden Sadler on 09-27-2024 Calcium [Mass/Vol] 9.3 mg/dL 7.6-11.0 [facility] Serum or plasma urea nitroge n measurement (mass/volume)Ordered By: Hayden Sadler on 09-27-2024 Urea nitrogen [Mass/Vol] 23 mg/dL High 4-19 [facility] Sodium levelOrdered By: Naomi Sadler on 09-27-2024 Sodium [Moles/Vol] 128 mmol/L Low 133-145 [facility] Troponin T.cardiac High sens itivity method [Mass/Vol]Ordered By: Hayden Sadler on 09-27-2024 Troponin T High Sensitivity 16 ng/L High <14 [facility] Troponin T High Sensitivity 2 Hour 14 ng/L <14 [facility] Troponin T.cardiac [Mass/vol ume] in Serum or Plasma by High sensitivity methodOrdered By: Hayden Sadler on 09-27-2024 Troponin T.cardiac High sensitivity method [Mass/Vol] 16 ng/L High <14 [facility] Troponin T.cardiac High sensitivity method [Mass/Vol] 14 ng/L <14 [facility] White blood cell (WBC) count Ordered By: Hayden Sadler on 09-27-2024 WBC (Bld) [#/Vol] 6.5 10*3/uL 4.4-11.0 [facility] aPTT Coag (PPP) [Time]Ordere d By: Hayden Sadler on 09-27-2024 aPTT Coag (Bld) [Time] 32.4 s 24.1-36.2 [facility] Basic Metabolic Profile (BMP )on 07-24-2024 BUN/CRE 26.3 RATIO High 10-20 [facility] Comment on above: Performed By: #### L 500.2500 ####[facility] [address] [place], [address] CA,Total 9.4 mg/dL Normal 8.5-10.1 [facility] Comment on above: Performed By: #### L 500.2500 ####[facility] [address] [place], [address] Chloride [Moles/Vol] 97 mmol/L Low 98-107 [facility] Comment on above: Performed By: #### L 500.2500 ####[facility] [address] [place], [address] CO2 [Moles/Vol] 24.0 mmol/L Normal 21.0-32.0 [facility] Comment on above: Performed By: #### L 500.2500 ####[facility] [address] [place], [address] Creatinine [Mass/Vol] 0.80 mg/dL Normal 0.55-1.02 [facility] Comment on above: Result Comment: The validity of the calculated GFR GFRAA in patients over70 years has not been determined. Clinical correlation isessential. Performed By: #### L 500.2500 ####[facility] [address] [place], [address] EST GFR - AA 89 mL/min Normal >60 [facility] Comment on above: Result Comment: Afri can [place] GFR Calc Performed By: #### L 500.2500 ####[facility] [address] [place], [address] GAP 8 Normal 5-15 [facility] Comment on above: Performed By: #### L 500.2500 ####[facility] [address] [place], [address] GFR/1.73 sq M.predicted among non-blacks MDRD (S/P/Bld) [Vol rate/Area] 74 mL/min/{1.73_m2} Normal >60 [facility] Comment on above: Result Comment: Non- GFR Calc Performed By: #### L 500.2500 ####[facility] [address] [place], [address] Glucose [Mass/Vol] 120 mg/dL High 74-106 [facility] Comment on above: Result Comment: Fast ing Glucose result from 100 to 125 mg/dLsuggests IMPAIRED HOMEOSTASIS per A.D.A. criteria. Performed By: #### L 500.2500 ####[facility] [address] [place], [address] Potassium [Moles/Vol] 4.5 mmol/L Normal 3.5-5.1 [facility] Comment on above: Performed By: #### L 500.2500 ####[facility] [address] [place], [address] Sodium [Moles/Vol] 129 mmol/L Low 136-145 [facility] Comment on above: Performed By: #### L 500.2500 ####[facility] [address] [place], [address] Urea nitrogen [Mass/Vol] 21 mg/dL High 7-18 [facility] Comment on above: Performed By: #### L 500.2500 ####[facility] [address] [place], [address] Blood urea nitrogen (BUN)/cr eatinine ratioOrdered By: Nati Hudson on 07-24-2024 Urea nitrogen/Creatinine [Mass ratio] 26.3 mg/mg High 10-20 [facility] Carbon dioxide measurementOr dered By: Nati Hudson on 07-24-2024 CO2 [Moles/Vol] 24.0 mmol/L 21.0-32.0 [facility] Chloride measurementOrdered By: Nati Hudson on 07-24-2024 Chloride [Moles/Vol] 97 mmol/L Low 98-107 [facility] Estimated glomerular filtrat ion rate (GFR) AmericanOrdered By: Nati Hudson on 07-24-2024 Estimated GFR (MDRD) Amer 89 mL/min >60 [facility] Comment on above: GFR Calc Glomerular filtration rate ( GFR) estimationOrdered By: Nati Hudson on 07-24-2024 Estimated GFR (MDRD) Non-Af Amer 74 mL/min >60 [facility] Comment on above: Non- GFR Calc GFR/1.73 sq M.predicted among non-blacks MDRD (S/P/Bld) [Vol rate/Area] 74 mL/min/{1.73_m2} >60 [facility] Comment on above: Non- GFR Calc Glucose measurementOrdered B y: Nati Hudson on 07-24-2024 Glucose [Mass/Vol] 120 mg/dL High 74-106 [facility] Comment on above: Fasting Glucose resu lt from 100 to 125 mg/dL suggests IMPAIRED HOMEOSTASIS per A.D.A. criteria. Potassium measurementOrdered By: Nati Hudson on 07-24-2024 Potassium [Moles/Vol] 4.5 mmol/L 3.5-5.1 [facility] Serum anion gap measurementO rdered By: Nati Hudson on 07-24-2024 Anion gap [Moles/Vol] 8 mmol/L 5-15 [facility] Serum or plasma calcium ena urement (mass/volume)Ordered By: Nati Hudson on 07-24-2024 Calcium [Mass/Vol] 9.4 mg/dL 8.5-10.1 [facility] Serum or plasma creatinine m easurement (mass/volume)Ordered By: Nati Hudson on 07-24-2024 Creatinine [Mass/Vol] 0.80 mg/dL 0.55-1.02 [facility] Comment on above: The validity of the calculated GFR & GFRAA in patients over 70 years has not been determined. Clinical correlation is essential. Serum or plasma urea nitroge n measurement (mass/volume)Ordered By: Nati Hudson on 07-24-2024 Urea nitrogen [Mass/Vol] 21 mg/dL High 7-18 [facility] Sodium levelOrdered By: Luiz Hudson on 07-24-2024 Sodium [Moles/Vol] 129 mmol/L Low 136-145 [facility] MRI BRAIN WITH PERFUSIONon 0 07-16-2024 [...] on the March 14, 2024 PET/CT. Normal [facility] Basic Metabolic Profile (BMP )on 06-19-2024 BUN/CRE 25.9 RATIO High 10-20 [facility] Comment on above: Performed By: #### L 501.7300, L501.7400, L501.5500, L500.2500 ####[facility] [address] [place], [address] CA,Total 9.3 mg/dL Normal 8.5-10.1 [facility] Comment on above: Performed By: #### L 501.7300, L501.7400, L501.5500, L500.2500 ####[facility] [address] [place], [address] Chloride [Moles/Vol] 98 mmol/L Normal 98-107 [facility] Comment on above: Performed By: #### L 501.7300, L501.7400, L501.5500, L500.2500 ####[facility] [address] [place], [address] CO2 [Moles/Vol] 24.0 mmol/L Normal 21.0-32.0 [facility] Comment on above: Performed By: #### L 501.7300, L501.7400, L501.5500, L500.2500 ####[facility] [address] [place], [address] Creatinine [Mass/Vol] 0.89 mg/dL Normal 0.55-1.02 [facility] Comment on above: Result Comment: The validity of the calculated GFR GFRAA in patients over70 years has not been determined. Clinical correlation isessential. Performed By: #### L 501.7300, L501.7400, L501.5500, L500.2500 ####[facility] [address] [place], [address] EST GFR - AA 79 mL/min Normal >60 [facility] Comment on above: Result Comment: Afri can [place] GFR Calc Performed By: #### L 501.7300, L501.7400, L501.5500, L500.2500 ####[facility] [address] [place], [address] GAP 6 Normal 5-15 [facility] Comment on above: Performed By: #### L 501.7300, L501.7400, L501.5500, L500.2500 ####[facility] [address] [place], [address] GFR/1.73 sq M.predicted among non-blacks MDRD (S/P/Bld) [Vol rate/Area] 65 mL/min/{1.73_m2} Normal >60 [facility] Comment on above: Result Comment: Non- GFR Calc Performed By: #### L 501.7300, L501.7400, L501.5500, L500.2500 ####[facility] [address] [place], [address] Glucose [Mass/Vol] 121 mg/dL High 74-106 [facility] Comment on above: Result Comment: Fast ing Glucose result from 100 to 125 mg/dLsuggests IMPAIRED HOMEOSTASIS per A.D.A. criteria. Performed By: #### L 501.7300, L501.7400, L501.5500, L500.2500 ####[facility] [address] [place], [address] Potassium [Moles/Vol] 4.4 mmol/L Normal 3.5-5.1 [facility] Comment on above: Performed By: #### L 501.7300, L501.7400, L501.5500, L500.2500 ####[facility] [address] [place], [address] Sodium [Moles/Vol] 129 mmol/L Low 136-145 [facility] Comment on above: Performed By: #### L 501.7300, L501.7400, L501.5500, L500.2500 ####[facility] [address] [place], [address] Urea nitrogen [Mass/Vol] 23 mg/dL High 7-18 [facility] Comment on above: Performed By: #### L 501.7300, L501.7400, L501.5500, L500.2500 ####[facility] [address] [place], [address] Blood urea nitrogen (BUN)/cr eatinine ratioOrdered By: Nati Hudson on 06-19-2024 Urea nitrogen/Creatinine [Mass ratio] 25.9 mg/mg High 10-20 [facility] Carbon dioxide measurementOr dered By: Nati Hudson on 06-19-2024 CO2 [Moles/Vol] 24.0 mmol/L 21.0-32.0 [facility] Chloride measurementOrdered By: Nati Hudson on 06-19-2024 Chloride [Moles/Vol] 98 mmol/L 98-107 [facility] Direct serum free thyroxine (FT4) measurementOrdered By: Lolly Alejandra on 06-19-2024 Free T4 [Mass/Vol] 1.60 ng/dL High 0.76-1.46 [facility] Estimated glomerular filtrat ion rate (GFR) AmericanOrdered By: Nati Hudson on 06-19-2024 Estimated GFR (MDRD) Amer 79 mL/min >60 [facility] Comment on above: GFR Calc Free T3on 06-19-2024 Free T3 [Mass/Vol] 1.8 pg/mL Low 2.18-3.98 [facility] Comment on above: Performed By: #### L 501.9520, L506.0400, L501.22550 ####[facility] [address] [place], [address] Free M0Ckwznps By: Lolly Alejandra on 06-19-2024 Free Triiodothyronine (T3) pg/dL 1.8 pg/mL Low 2.18-3.98 [facility] Glomerular filtration rate ( GFR) estimationOrdered By: Nati Hudson on 06-19-2024 Estimated GFR (MDRD) Non-Af Amer 65 mL/min >60 [facility] Comment on above: Non- GFR Calc Glucose measurementOrdered B y: Nati Hudson on 06-19-2024 Glucose [Mass/Vol] 121 mg/dL High 74-106 [facility] Comment on above: Fasting Glucose resu lt from 100 to 125 mg/dL suggests IMPAIRED HOMEOSTASIS per A.D.A. criteria. Osmolality (U) [Osmolality]O rdered By: Nati Hudson on 06-19-2024 Urine Osmolality 657 mOsm/KG >50 [facility] Comment on above: Normal Urine Referen ce Ranges Random: 50 - 1200 mOsm/kg H20 depending on fluid intake Random: >850 mOsm/kg after 12 hour fluid restriction 24 hour: ~300 - 900 mOsm/kg H2O Osmolality, Serumon 06-19-19 25 OSMOLALITY,SER 281 mOsm/KG Normal 280-301 [facility] Comment on above: Performed By: #### L 501.7300, L501.7400, L501.5500, L500.2500 ####[facility] [address] [place], [address] Osmolality, Urineon 06-19-19 25 OSMOLALITY,UR 657 mOsm/KG Normal [facility] Comment on above: Result Comment: Norm al Urine Reference Ranges Random: 50 - 1200 mOsm/kg H20 depending on fluid intake Random: >850 mOsm/kg after 12 hour fluid restriction 24 hour: 300 - 900 mOsm/kg H2O Performed By: #### L 501.7300, L501.7400, L501.5500, L500.2500 ####[facility] [address] [place], [place], [address] Osmolality, serumOrdered By: Nati Hudson on 06-19-2024 Serum Osmolality 281 mOsm/KG 280-301 [facility] Potassium measurementOrdered By: Nati Hudson on 06-19-2024 Potassium [Moles/Vol] 4.4 mmol/L 3.5-5.1 [facility] Serum anion gap measurementO rdered By: Nati Hudson on 06-19-2024 Anion gap [Moles/Vol] 6 mmol/L 5-15 [facility] Serum or plasma calcium ena urement (mass/volume)Ordered By: Nati Hudson on 06-19-2024 Calcium [Mass/Vol] 9.3 mg/dL 8.5-10.1 [facility] Serum or plasma creatinine m easurement (mass/volume)Ordered By: Nati Hudson on 06-19-2024 Creatinine [Mass/Vol] 0.89 mg/dL 0.55-1.02 [facility] Comment on above: The validity of the calculated GFR & GFRAA in patients over 70 years has not been determined. Clinical correlation is essential. Serum or plasma urea nitroge n measurement (mass/volume)Ordered By: Nati Hudson on 06-19-2024 Urea nitrogen [Mass/Vol] 23 mg/dL High 7-18 [facility] Sodium levelOrdered By: Luiz Hudson on 06-19-2024 Sodium [Moles/Vol] 129 mmol/L Low 136-145 [facility] Sodium urOrdered By: Ana Cristina Hudson on 06-19-2024 Sodium (U) [Moles/Vol] 75 mmol/L Not Establ. [facility] T4 Free Directon 06-19-2024 T4 FREE DIRECT 1.60 ng/dL High 0.76-1.46 [facility] Comment on above: Performed By: #### L 501.9520, L506.0400, L501.77515 ####[facility] [address] [place], [address] TSH QnOrdered By: Lolly Bernabe on 06-19-2024 Thyroid Stimulating Hormone (TSH) 1.730 uIU/mL 0.358-3.740 [facility] Thyroid Stim Hormone (TSH)on 06-19-2024 TSH 1.730 uIU/mL Normal 0.358-3.740 [facility] Comment on above: Performed By: #### L 501.9520, L506.0400, L501.05002 ####[facility] [address] [place], [address] Urine Sodiumon 06-19-2024 Sodium (U) [Moles/Vol] 75 mmol/L Normal Not Establ. [facility] Comment on above: Performed By: #### L 501.7300, L501.7400, L501.5500, L500.2500 ####[facility] [address] [place], [address] AST(SGOT)on 04-17-2024 AST [Catalytic activity/Vol] 24 U/L Normal 15-37 [facility] Comment on above: Order Comment: Order Date: 03/20/24Order Info: [id number] - BMPOrder Info: - LIPIDOrder Date: 11/18/23Order Info: 1920-01 - ASTOrder Info: [id number] - ALT Performed By: #### L 500.4100, L501.4100, L501.4405 ####[facility] [address] [place], [address] Alanine Aminotransferas (SGP T)on 04-17-2024 ALT [Catalytic activity/Vol] 46 U/L Normal 13-56 [facility] Comment on above: Order Comment: Order Date: 03/20/24Order Info: [id number] - BMPOrder Info: - LIPIDOrder Date: 11/18/23Order Info: 1920-01 - ASTOrder Info: [id number] - ALT Performed By: #### L 500.4100, L501.4100, L501.4405 ####[facility] [address] [place], [place], [address] Basic Metabolic Profile (BMP )on 04-17-2024 BUN/CRE 17.6 RATIO Normal 10-20 [facility] Comment on above: Order Comment: Order Date: 03/20/24Order Info: 666-06 - BMPOrder Info: - LIPIDOrder Date: 11/18/23Order Info: 1920-01 - ASTOrder Info: [id number] - ALT Performed By: #### L 500.2500 ####[facility] [address] [place], [place], [address] CA,Total 9.1 mg/dL Normal 8.5-10.1 [facility] Comment on above: Order Comment: Order Date: 03/20/24Order Info: [id number] - BMPOrder Info: - LIPIDOrder Date: 11/18/23Order Info: 1920-01 - ASTOrder Info: [id number] - ALT Performed By: #### L 500.2500 ####[facility] [address] [place], [address] Chloride [Moles/Vol] 99 mmol/L Normal 98-107 [facility] Comment on above: Order Comment: Order Date: 03/20/24Order Info: 666-06 - BMPOrder Info: - LIPIDOrder Date: 11/18/23Order Info: 1920-01 - ASTOrder Info: [id number] - ALT Performed By: #### L 500.2500 ####[facility] [address] [place], [address] CO2 [Moles/Vol] 24.0 mmol/L Normal 21.0-32.0 [facility] Comment on above: Order Comment: Order Date: 03/20/24Order Info: [id number] - BMPOrder Info: - LIPIDOrder Date: 11/18/23Order Info: 1920-01 - ASTOrder Info: [id number] - ALT Performed By: #### L 500.2500 ####[facility] [address] [place], [place], [address] Creatinine [Mass/Vol] 0.91 mg/dL Normal 0.55-1.02 [facility] Comment on above: Order Comment: Order Date: 03/20/24Order Info: 666-06 - BMPOrder Info: - LIPIDOrder Date: 11/18/23Order Info: 1920-01 - ASTOrder Info: [id number] - ALT Result Comment: The validity of the calculated GFR GFRAA in patients over70 years has not been determined. Clinical correlation isessential. Performed By: #### L 500.2500 ####[facility] [address] [place], [address] EST GFR - AA 77 mL/min Normal >60 [facility] Comment on above: Order Comment: Order Date: 03/20/24Order Info: 666-06 - BMPOrder Info: - LIPIDOrder Date: 11/18/23Order Info: 1920-01 - ASTOrder Info: 1741-11 - ALT Result Comment: Afri can [place] GFR Calc Performed By: #### L 500.2500 ####[facility] [address] [place], [address] GAP 7 Normal 5-15 [facility] Comment on above: Order Comment: Order Date: 03/20/24Order Info: 666-06 - BMPOrder Info: - LIPIDOrder Date: 11/18/23Order Info: 1920-01 - ASTOrder Info: [id number] - ALT Performed By: #### L 500.2500 ####[facility] [address] [place], [address] GFR/1.73 sq M.predicted among non-blacks MDRD (S/P/Bld) [Vol rate/Area] 63 mL/min/{1.73_m2} Normal >60 [facility] Comment on above: Order Comment: Order Date: 03/20/24Order Info: 666-06 - BMPOrder Info: - LIPIDOrder Date: 11/18/23Order Info: 1920-01 - ASTOrder Info: 1741-11 - ALT Result Comment: Non- GFR Calc Performed By: #### L 500.2500 ####[facility] [address] [place], [address] Glucose [Mass/Vol] 121 mg/dL High 74-106 [facility] Comment on above: Order Comment: Order Date: 03/20/24Order Info: 666-06 - BMPOrder Info: - LIPIDOrder Date: 11/18/23Order Info: 1920-01 - ASTOrder Info: 1741-11 - ALT Result Comment: Fast ing Glucose result from 100 to 125 mg/dLsuggests IMPAIRED HOMEOSTASIS per A.D.A. criteria. Performed By: #### L 500.2500 ####[facility] [address] [place], [address] Potassium [Moles/Vol] 4.6 mmol/L Normal 3.5-5.1 [facility] Comment on above: Order Comment: Order Date: 03/20/24Order Info: 666-06 - BMPOrder Info: - LIPIDOrder Date: 11/18/23Order Info: 1920-01 - ASTOrder Info: 1741-11 - ALT Performed By: #### L 500.2500 ####[facility] [address] [place], [address] Sodium [Moles/Vol] 130 mmol/L Low 136-145 [facility] Comment on above: Order Comment: Order Date: 03/20/24Order Info: 666-06 - BMPOrder Info: - LIPIDOrder Date: 11/18/23Order Info: 1920-01 - ASTOrder Info: 1741-11 - ALT Performed By: #### L 500.2500 ####[facility] [address] [place], [address] Urea nitrogen [Mass/Vol] 16 mg/dL Normal 7-18 [facility] Comment on above: Order Comment: Order Date: 03/20/24Order Info: 666-06 - BMPOrder Info: - LIPIDOrder Date: 11/18/23Order Info: 1920-01 - ASTOrder Info: 1741-11 - ALT Performed By: #### L 500.2500 ####[facility] [address] [place], [address] Lipid Profileon 04-17-2024 Cholesterol [Mass/Vol] 160 mg/dL Normal 200 [facility] Comment on above: Order Comment: Order Date: 03/20/24Order Info: 666-06 - BMPOrder Info: - LIPIDOrder Date: 11/18/23Order Info: 1920-01 - ASTOrder Info: 1741-11 - ALT Result Comment: <200 mg/dL Desirable 200-240 mg/dL Borderline >240 mg/dL High Risk Performed By: #### L 500.4100, L501.4100, L501.4405 ####[facility] [address] [place], [address] Cholesterol in HDL [Mass/Vol] 73 mg/dL Normal [facility] Comment on above: Order Comment: Order Date: 03/20/24Order Info: 666-06 - BMPOrder Info: - LIPIDOrder Date: 11/18/23Order Info: 1920-01 - ASTOrder Info: 1741-11 - ALT Result Comment: The drugs N-Acetylcysteine and Metamizole may falselydepress this assay. Reference Range HDL <40 mg/dL Low HDL Cholesterol HDL >or= 60 mg/dL High HDL Cholesterol Performed By: #### L 500.4100, L501.4100, L501.4405 ####[facility] [address] [place], [address] Cholesterol in LDL [Mass/Vol] 71 mg/dL Normal 0-130 [facility] Comment on above: Order Comment: Order Date: 03/20/24Order Info: 666-06 - BMPOrder Info: - LIPIDOrder Date: 11/18/23Order Info: 1920-01 - ASTOrder Info: 1741-11 - ALT Performed By: #### L 500.4100, L501.4100, L501.4405 ####[facility] [address] [place], [address] Cholesterol in VLDL [Mass/Vol] 16 mg/dL Normal 5-40 [facility] Comment on above: Order Comment: Order Date: 03/20/24Order Info: 666-06 - BMPOrder Info: - LIPIDOrder Date: 11/18/23Order Info: 1920-01 - ASTOrder Info: 1741-11 - ALT Performed By: #### L 500.4100, L501.4100, L501.4405 ####[facility] [address] [place], [address] Triglyceride [Mass/Vol] 78 mg/dL Normal [facility] Comment on above: Order Comment: Order Date: 03/20/24Order Info: 666-06 - BMPOrder Info: - LIPIDOrder Date: 11/18/23Order Info: 1920-01 - ASTOrder Info: 1741-11 - ALT Result Comment: The drugs N-Acetylcysteine and Metamizole may falselydepress this assay.Serum Triglycerides Reference Interval Normal <150 mg/dL Borderline high 150 - 199 mg/dL High 200 - 499 mg/dL Very High > or = 500 mg/dL Performed By: #### L 500.4100, L501.4100, L501.4405 ####[facility] [address] [place], [address] Protein+Creatinine Ratio,Uri neon 04-17-2024 PROT:CRE RATIO 301 mg/g CRE High 0-200 [facility] Comment on above: Performed By: #### L 501.0900 ####[facility] [address] [place], [address] Protein (U) [Mass/Vol] 20.1 mg/dL High <11.9 [facility] Comment on above: Performed By: #### L 501.0900 ####[facility] [address] [place], [address] UR CREAT 66.70 mg/dL Normal NO RANGE EST. [facility] Comment on above: Performed By: #### L 501.0900 ####[facility] [address] [place], [address] MRI BRAIN WITH PERFUSIONon 1 MRI BRAIN [...] have reviewed and approved this report. Normal [facility] PT Skull base to mid-thighon 03-14-2024 [...] the patient was positioned on the Siemens DashThisgraph mCT TOF< PET/CT-64, Ulices imaging unit.. A [...] the patient was positioned on the Siemens DashThisgraph mCT TOF< PET/CT-64, Ulices imaging unit.. A [...] although residual/recurrent disease cannot be entirely excluded. [facility] Radiology Study observation (narrative) [facility] PT Skull base to mid-thighOr dered By: Anthony Ricci on 03-14-2024 [facility] Work Phone: Basophil percentageOrdered B y: Lolly Alejandra on 07-19-2023 Bilirubin [Mass/Vol] 1.00 mg/dL 0.20-1.00 [facility] Comment on above: For patients on eltr ombopag therapy, use of Dimension Wann TBIL is not recommended. Protein [Mass/Vol] 7.2 g/dL 6.4-8.2 [facility] Direct bilirubinOrdered By: Lolly Alejandra on 07-19-2023 Bilirubin.direct [Mass/Vol] 0.32 mg/dL 0.00-0.30 [facility] Laboratory - Chemistry and C hemistry - challengeOrdered By: Lolly Alejandra on 07-19-2023 ALP [Catalytic activity/Vol] 84 U/L 45-117 [facility] ALT [Catalytic activity/Vol] 29 U/L 13-56 [facility] Globulin (S) [Mass/Vol] 3.0 g/dL 2.2-4.2 [facility] No Panel InformationOrdered By: Lolly Alejandra on 07-19-2023 Free Triiodothyronine (T3) pg/dL 2.1 pg/mL 2.18-3.98 [facility] Serum or plasma thyroid stim ulating hormone (TSH) measurement (units/volume)Ordered By: Lolly Alejandra on 07-19-2023 TSH Qn 2.69 uIU/mL 0.358-3.74 [facility] Thin prep Papanicolaou smear with manual screeningOrdered By: Lolly Alejandra on 07-19-2023 Thin prep Papanicolaou smear with manual screening 4.2 g/dL 3.2-5.0 [facility] Thin prep Papanicolaou smear with manual screening 18 U/L 15-37 [facility] Thin prep Papanicolaou smear with manual screening 1.53 ng/dL 0.76-1.46 [facility] RAD ONC ARIA FRACTION SUMMAR 02-16-2023 Course Elapsed Days 15 [facility] Course First Treatment Date 02/01/2023 12:46 PM [facility] Course ID C1 Meningioma [facility] Course Last Treatment Date 02/16/2023 9:15 AM [facility] Energy 6X [facility] Fraction Number 11 [facility] Plan Dose Delivered to Date 2200 cGy [facility] Plan Fractions Treated to Date 11 [facility] Plan ID L_Fronto_Temp [facility] Plan Prescribed Dose Per Fraction 200 cGy [facility] Plan Primary Reference Point 1.A L_FrontoTemp [facility] Plan Total Fractions Prescribed 30 [facility] Plan Total Prescribed Dose 6000 cGy [facility] Reference Point ID 1.A L_FrontoTemp [facility] Treatment Dates 30 [facility] Radiology Study observation (narrative) [facility] RAD ONC ARIA FRACTION SUMMAR 02-08-2023 Course Elapsed Days 7 [facility] Course First Treatment Date 02/01/2023 12:46 PM [facility] Course ID C1 Meningioma [facility] Course Last Treatment Date 02/08/2023 10:18 AM [facility] Energy 6X [facility] Fraction Number 5 [facility] Plan Dose Delivered to Date 1000 cGy [facility] Plan Fractions Treated to Date 5 [facility] Plan ID L_Fronto_Temp [facility] Plan Prescribed Dose Per Fraction 200 cGy [facility] Plan Primary Reference Point 1.A L_FrontoTemp [facility] Plan Total Fractions Prescribed 30 [facility] Plan Total Prescribed Dose 6000 cGy [facility] Reference Point ID 1.A L_FrontoTemp [facility] Treatment Dates 30 [facility] Radiology Study observation (narrative) [facility] Absolute lymphocyte countOrd ered By: Monika Theo on 01-18-2023 Lymphocytes Auto (Unsp spec) [#/Vol] 0.91 10*3/uL 0.83-4.51 [facility] Basophil percentageOrdered B y: Monika Scruggsvilla on 01-18-2023 Basophils/100 WBC (Bld) 0.3 % 0-1 [facility] Chloride [Moles/Vol] 98 mmol/L 98-107 [facility] Eosinophils/100 WBC (Bld) 1.5 % 0-5 [facility] Glucose [Mass/Vol] 113 mg/dL 74-106 [facility] Comment on above: Fasting Glucose resu lt from 100 to 125 mg/dL suggests IMPAIRED HOMEOSTASIS per A.D.A. criteria. Neutrophils (Bld) [#/Vol] 6.0 10*3/uL 2.0-7.7 [facility] Neutrophils/100 WBC (Bld) 76.8 % 47-70 [facility] Potassium [Moles/Vol] 4.4 mmol/L 3.5-5.1 [facility] Sodium [Moles/Vol] 132 mmol/L 136-145 [facility] WBC (Bld) [#/Vol] 7.8 10*3/uL 4.4-11.0 [facility] Blood erythrocytes count (nu mber/volume)Ordered By: Monika Venegas on 01-18-2023 RBC (Bld) [#/Vol] 3.40 10*6/uL 4.2-5.4 [facility] Blood hemoglobin measurement (mass/volume)Ordered By: Monika Venegas on 01-18-2023 Hemoglobin (Bld) [Mass/Vol] 10.4 g/dL 12.0-15.0 [facility] Blood lymphocytes/100 leukoc ytesOrdered By: Monika Venegas on 01-18-2023 Lymphocytes/100 WBC (Bld) 11.7 % 19-41 [facility] Blood monocytes/100 leukocyt esOrdered By: Monika Venegas on 01-18-2023 Monocytes/100 WBC (Bld) 9.1 % 0-10 [facility] Blood platelet mean volumeOr dered By: Monika Venegas on 01-18-2023 Platelet mean volume (Bld) [Entitic vol] 10.5 fL 6.2-12.0 [facility] Determination of erythrocyte mean corpuscular volume (MCV)Ordered By: Monika Venegas on 01-18-2023 MCV (RBC) [Entitic vol] 90.6 fL 81-99 [facility] Hematocrit Auto (Bld) [Volum e fraction]Ordered By: Monika Venegas on 01-18-2023 Hematocrit (Bld) [Volume fraction] 30.8 % 37-47 [facility] Laboratory - Chemistry and C hemistry - challengeOrdered By: Monika Venegas on 01-18-2023 CO2 [Moles/Vol] 30.0 mmol/L 21.0-32.0 [facility] Urea nitrogen/Creatinine [Mass ratio] 22.3 mg/mg 10-20 [facility] - Hematology and Cell countsOrdered By: Monika Venegas on 01-18-2023 Erythrocyte distribution width (RBC) [Entitic vol] 49.6 fL 35.1-43.9 [facility] Erythrocyte distribution width (RBC) [Ratio] 15.1 % 11.6-14.6 [facility] Immature granulocytes/100 WBC (Bld) 0.600 % 0.0-0.9 [facility] Comment on above: IG% - Immature Granu locytes (promyelocytes, myelocytes and metamyelocytes) > 1% indicates that a LEFT SHIFT is Present. MCH (RBC) [Entitic mass] 30.6 pg 27.0-32.0 [facility] Nucleated RBC/100 WBC (Bld) [Ratio] 0 % 0-5 [facility] MCHC Auto (RBC) [Mass/Vol]Or dered By: Monika Venegas on 01-18-2023 MCHC (RBC) [Mass/Vol] 33.8 g/dL 32-36 [facility] No Panel InformationOrdered By: Monika Venegas on 01-18-2023 Estimated GFR (MDRD) Amer 101 mL/min >60 [facility] Comment on above: GFR Calc Estimated GFR (MDRD) Non-Af Amer 83 mL/min >60 [facility] Comment on above: Non- GFR Calc Platelets bldOrdered By: Monika Venegas on 01-18-2023 Platelets (Bld) [#/Vol] 245 10*3/uL 150-450 [facility] Serum or plasma calcium ena urement (mass/volume)Ordered By: Monika Venegas on 01-18-2023 Calcium [Mass/Vol] 9.4 mg/dL 8.5-10.1 [facility] Serum or plasma creatinine m easurement (mass/volume)Ordered By: Monika Venegas on 01-18-2023 Creatinine [Mass/Vol] 0.72 mg/dL 0.55-1.02 [facility] Comment on above: The validity of the calculated GFR & GFRAA in patients over 70 years has not been determined. Clinical correlation is essential. Serum or plasma urea nitroge n measurement (mass/volume)Ordered By: Monika Venegas on 01-18-2023 Urea nitrogen [Mass/Vol] 16 mg/dL 7-18 [facility] Thin prep Papanicolaou smear with manual screeningOrdered By: Monika Venegas on 01-18-2023 Thin prep Papanicolaou smear with manual screening 4 5-15 [facility] Basophil percentageOrdered B y: Jo-Ann Arias on 12-27-2022 Chloride [Moles/Vol] 106 mmol/L 98-107 [facility] Glucose [Mass/Vol] 123 mg/dL 74-106 [facility] Comment on above: Fasting Glucose resu lt from 100 to 125 mg/dL suggests IMPAIRED HOMEOSTASIS per A.D.A. criteria. Potassium [Moles/Vol] 4.2 mmol/L 3.5-5.1 [facility] Sodium [Moles/Vol] 137 mmol/L 136-145 [facility] - Chemistry and C hemistry - challengeOrdered By: Jo-Ann Arias on 12-27-2022 CO2 [Moles/Vol] 27.0 mmol/L 21.0-32.0 [facility] Magnesium [Mass/Vol] 1.7 mg/dL 1.6-2.6 [facility] Urea nitrogen/Creatinine [Mass ratio] 26.9 mg/mg 10-20 [facility] No Panel InformationOrdered By: Jo-Ann Arias on 12-27-2022 Estimated Creatinine Clearance Calc 39.75 ml/min [facility] Estimated GFR (MDRD) Amer 146 mL/min >60 [facility] Comment on above: GFR Calc Estimated GFR (MDRD) Non-Af Amer 121 mL/min >60 [facility] Comment on above: Non- GFR Calc Serum or plasma calcium ena urement (mass/volume)Ordered By: Jo-Ann Arias on 12-27-2022 Calcium [Mass/Vol] 8.8 mg/dL 8.5-10.1 [facility] Serum or plasma creatinine m easurement (mass/volume)Ordered By: Jo-Ann Arias on 12-27-2022 Creatinine [Mass/Vol] 0.52 mg/dL 0.55-1.02 [facility] Comment on above: The validity of the calculated GFR & GFRAA in patients over 70 years has not been determined. Clinical correlation is essential. Serum or plasma urea nitroge n measurement (mass/volume)Ordered By: Jo-Ann Arias on 12-27-2022 Urea nitrogen [Mass/Vol] 14 mg/dL 7-18 [facility] Thin prep Papanicolaou smear with manual screeningOrdered By: Jo-Ann Arias on 12-27-2022 Thin prep Papanicolaou smear with manual screening 4 5-15 [facility] Absolute lymphocyte countOrd ered By: Laura Jacobo on 12-24-2022 Lymphocytes Auto (Unsp spec) [#/Vol] 0.91 10*3/uL 0.83-4.51 [facility] Basophil percentageOrdered B y: Laura Jacobo on 12-24-2022 Basophils/100 WBC (Bld) 0.4 % 0-1 [facility] Bilirubin [Mass/Vol] 0.70 mg/dL 0.20-1.00 [facility] Comment on above: For patients on eltr ombopag therapy, use of Dimension Wann TBIL is not recommended. Chloride [Moles/Vol] 109 mmol/L 98-107 [facility] Eosinophils/100 WBC (Bld) 0.7 % 0-5 [facility] Glucose [Mass/Vol] 159 mg/dL 74-106 [facility] Comment on above: Fasting Glucose resu lt greater than or equal to 126 mg/dL suggests DIABETES MELLITUS per A.D.A. criteria. Neutrophils (Bld) [#/Vol] 3.9 10*3/uL 2.0-7.7 [facility] Neutrophils/100 WBC (Bld) 67.6 % 47-70 [facility] Potassium [Moles/Vol] 4.2 mmol/L 3.5-5.1 [facility] Protein [Mass/Vol] 5.6 g/dL 6.4-8.2 [facility] Sodium [Moles/Vol] 138 mmol/L 136-145 [facility] WBC (Bld) [#/Vol] 5.7 10*3/uL 4.4-11.0 [facility] Blood erythrocytes count (nu mber/volume)Ordered By: Laura Jacobo on 12-24-2022 RBC (Bld) [#/Vol] 3.29 10*6/uL 4.2-5.4 [facility] Blood hemoglobin measurement (mass/volume)Ordered By: Laura Jacobo on 12-24-2022 Hemoglobin (Bld) [Mass/Vol] 9.7 g/dL 12.0-15.0 [facility] Blood lymphocytes/100 leukoc ytesOrdered By: Laura Jacobo on 12-24-2022 Lymphocytes/100 WBC (Bld) 15.9 % 19-41 [facility] Blood monocytes/100 leukocyt esOrdered By: Laura Jacobo on 12-24-2022 Monocytes/100 WBC (Bld) 13.1 % 0-10 [facility] Blood platelet mean volumeOr dered By: Laura Jacobo on 12-24-2022 Platelet mean volume (Bld) [Entitic vol] 9.9 fL 6.2-12.0 [facility] Determination of erythrocyte mean corpuscular volume (MCV)Ordered By: Laura Jacobo on 12-24-2022 MCV (RBC) [Entitic vol] 91.5 fL 81-99 [facility] Hematocrit Auto (Bld) [Volum e fraction]Ordered By: [facility] on 12-24-2022 Hematocrit (Bld) [Volume fraction] 30.1 % 37-47 [facility] - Chemistry and C hemistry - challengeOrdered By: [facility] on 12-24-2022 ALP [Catalytic activity/Vol] 121 U/L 45-117 [facility] ALT [Catalytic activity/Vol] 36 U/L 13-56 [facility] CO2 [Moles/Vol] 23.0 mmol/L 21.0-32.0 [facility] Globulin (S) [Mass/Vol] 2.7 g/dL 2.2-4.2 [facility] Urea nitrogen/Creatinine [Mass ratio] 29.0 mg/mg 10-20 [facility] - Hematology and Cell countsOrdered By: Laura Jacobo on 12-24-2022 Erythrocyte distribution width (RBC) [Entitic vol] 50.5 fL 35.1-43.9 [facility] Erythrocyte distribution width (RBC) [Ratio] 15.2 % 11.6-14.6 [facility] Immature granulocytes/100 WBC (Bld) 2.300 % 0.0-0.9 [facility] Comment on above: IG% - Immature Granu locytes (promyelocytes, myelocytes and metamyelocytes) > 1% indicates that a LEFT SHIFT is Present. MCH (RBC) [Entitic mass] 29.5 pg 27.0-32.0 [facility] Nucleated RBC/100 WBC (Bld) [Ratio] 0 % 0-5 [facility] ([facility] [Mass/Vol]Or dered By: Laura Jacobo on 12-24-2022 MCHC (RBC) [Mass/Vol] 32.2 g/dL 32-36 [facility] No Panel InformationOrdered By: Laura Jacobo on 12-24-2022 Estimated Creatinine Clearance Calc 39.97 ml/min [facility] Estimated GFR (MDRD) Amer 127 mL/min >60 [facility] Comment on above: GFR Calc Estimated GFR (MDRD) Non-Af Amer 105 mL/min >60 [facility] Comment on above: Non- GFR Calc Platelets bldOrdered By: Isabel Jacobo on 12-24-2022 Platelets (Bld) [#/Vol] 246 10*3/uL 150-450 [facility] Serum or plasma albumin ena urement (mass/volume)Ordered By: Laura Jacobo on 12-24-2022 Albumin [Mass/Vol] 2.9 g/dL 3.2-5.0 [facility] Serum or plasma albumin/glob ulin mass ratioOrdered By: Laura Jacobo on 12-24-2022 Albumin/Globulin [Mass ratio] 1.1 {ratio} 0.9-2.4 [facility] Serum or plasma calcium ena urement (mass/volume)Ordered By: Laura Jacobo on 12-24-2022 Calcium [Mass/Vol] 8.8 mg/dL 8.5-10.1 [facility] Serum or plasma creatinine m easurement (mass/volume)Ordered By: Laura Jacobo on 12-24-2022 Creatinine [Mass/Vol] 0.59 mg/dL 0.55-1.02 [facility] Comment on above: The validity of the calculated GFR & GFRAA in patients over 70 years has not been determined. Clinical correlation is essential. Serum or plasma urea nitroge n measurement (mass/volume)Ordered By: Laura Jacobo on 12-24-2022 Urea nitrogen [Mass/Vol] 17 mg/dL 7-18 [facility] Thin prep Papanicolaou smear with manual screeningOrdered By: Laura Jacobo on 12-24-2022 Thin prep Papanicolaou smear with manual screening 14 U/L 15-37 [facility] Thin prep Papanicolaou smear with manual screening 6 5-15 [facility] No Panel InformationOrdered By: Laura Jacobo on 12-23-2022 Thyroid Stimulating Hormone (TSH) 2.34 uIU/mL 0.358-3.74 [facility] Basophil percentageOrdered B y: Jo-Ann Hugo on 12-20-2022 Sodium [Moles/Vol] 137 mmol/L 136-145 [facility] Basophil percentageOrdered B y: Jo-Ann Arias on 12-16-2022 Chloride [Moles/Vol] 103 mmol/L 98-107 [facility] Glucose [Mass/Vol] 127 mg/dL 74-106 [facility] Comment on above: Fasting Glucose resu lt greater than or equal to 126 mg/dL suggests DIABETES MELLITUS per A.D.A. criteria. Potassium [Moles/Vol] 4.2 mmol/L 3.5-5.1 [facility] - Chemistry and C hemistry - challengeOrdered By: Jo-Ann Arias on 12-16-2022 CO2 [Moles/Vol] 27.0 mmol/L 21.0-32.0 [facility] Magnesium [Mass/Vol] 2.1 mg/dL 1.6-2.6 [facility] Urea nitrogen/Creatinine [Mass ratio] 13.3 mg/mg 10-20 [facility] No Panel InformationOrdered By: Jo-Ann Arias on 12-16-2022 Estimated Creatinine Clearance Calc 42.34 ml/min [facility] Estimated GFR (MDRD) Amer 144 mL/min >60 [facility] Comment on above: GFR Calc Estimated GFR (MDRD) Non-Af Amer 119 mL/min >60 [facility] Comment on above: Non- GFR Calc Serum or plasma calcium ena urement (mass/volume)Ordered By: Jo-Ann Arias on 12-16-2022 Calcium [Mass/Vol] 8.8 mg/dL 8.5-10.1 [facility] Serum or plasma creatinine m easurement (mass/volume)Ordered By: Jo-Ann Arias on 12-16-2022 Creatinine [Mass/Vol] 0.53 mg/dL 0.55-1.02 [facility] Comment on above: The validity of the calculated GFR & GFRAA in patients over 70 years has not been determined. Clinical correlation is essential. Serum or plasma urea nitroge n measurement (mass/volume)Ordered By: Jo-Ann Hugo on 12-16-2022 Urea nitrogen [Mass/Vol] 7 mg/dL 7-18 [facility] Thin prep Papanicolaou smear with manual screeningOrdered By: Jo-Ann Arias on 12-16-2022 Thin prep Papanicolaou smear with manual screening 4 5-15 [facility] Blood hemoglobin measurement (mass/volume)Ordered By: Jo-Ann Arias on 12-13-2022 Hemoglobin (Bld) [Mass/Vol] 9.8 g/dL 12.0-15.0 [facility] Hematocrit Auto (Bld) [Volum e fraction]Ordered By: Jo-Ann Arias on 12-13-2022 Hematocrit (Bld) [Volume fraction] 29.1 % 37-47 [facility] Glucose Glucometer (BldC) [M ass/Vol]Ordered By: Jo-Ann Arias on 12-10-2022 Glucose [Mass/Vol] 120 mg/dL 74-106 [facility] Comment on above: MANAGEMENT OF PATIEN T CARE PER NURSING PROTOCOL Basophil percentageOrdered B y: Jo-Ann Arias on 12-07-2022 Basophil percentage 3.2 mg/dL 2.5-4.9 [facility] Bilirubin [Mass/Vol] 1.00 mg/dL 0.20-1.00 [facility] Comment on above: For patients on eltr ombopag therapy, use of Dimension Wann TBIL is not recommended. Protein [Mass/Vol] 4.8 g/dL 6.4-8.2 [facility] WBC (Bld) [#/Vol] 10.0 10*3/uL 4.4-11.0 [facility] Blood erythrocytes count (nu mber/volume)Ordered By: Jo-Ann Arias on 12-07-2022 RBC (Bld) [#/Vol] 3.34 10*6/uL 4.2-5.4 [facility] Blood platelet mean volumeOr dered By: Jo-Ann Arias on 12-07-2022 Platelet mean volume (Bld) [Entitic vol] 9.2 fL 6.2-12.0 [facility] Clostridium difficile detect ion by polymerase chain reactionOrdered By: Jo-Ann Arias on 12-07-2022 C. difficile DNA SHAHBAZ+probe Ql (Unsp spec) [facility] Determination of erythrocyte mean corpuscular volume (MCV)Ordered By: Jo-Ann Arias on 12-07-2022 MCV (RBC) [Entitic vol] 88.9 fL 81-99 [facility] - Chemistry and C hemistry - challengeOrdered By: Jo-Ann Arias on 12-07-2022 ALP [Catalytic activity/Vol] 74 U/L 45-117 [facility] ALT [Catalytic activity/Vol] 23 U/L 13-56 [facility] Globulin (S) [Mass/Vol] 3.0 g/dL 2.2-4.2 [facility] - Hematology and Cell countsOrdered By: Jo-Ann Arias on 12-07-2022 Erythrocyte distribution width (RBC) [Entitic vol] 46.3 fL 35.1-43.9 [facility] Erythrocyte distribution width (RBC) [Ratio] 14.4 % 11.6-14.6 [facility] MCH (RBC) [Entitic mass] 30.2 pg 27.0-32.0 [facility] MCHC Auto (RBC) [Mass/Vol]Or dered By: Jo-Ann Arias on 12-07-2022 MCHC (RBC) [Mass/Vol] 34.0 g/dL 32-36 [facility] Platelets bldOrdered By: Alyssa Arias on 12-07-2022 Platelets (Bld) [#/Vol] 229 10*3/uL 150-450 [facility] Serum or plasma albumin ena urement (mass/volume)Ordered By: Jo-Ann Arias on 12-07-2022 Albumin [Mass/Vol] 1.8 g/dL 3.2-5.0 [facility] Serum or plasma albumin/glob ulin mass ratioOrdered By: Jo-Ann Arias on 12-07-2022 Albumin/Globulin [Mass ratio] 0.6 {ratio} 0.9-2.4 [facility] Stool Clostridium difficile detectionOrdered By: Jo-Ann Arias on 12-07-2022 C. difficile Ql (Stl) [facility] Thin prep Papanicolaou smear with manual screeningOrdered By: Jo-Ann Arias on 12-07-2022 Thin prep Papanicolaou smear with manual screening 16 U/L 15-37 [facility] Absolute lymphocyte counton 11-09-2022 Lymphocytes Auto (Unsp spec) [#/Vol] 1.41 10*3/uL 0.83-4.51 [facility] Basophil percentageon 2022 Basophils/100 WBC (Bld) 0.4 % 0-1 [facility] Chloride [Moles/Vol] 100 mmol/L 98-107 [facility] Eosinophils/100 WBC (Bld) 1.0 % 0-5 [facility] Glucose [Mass/Vol] 108 mg/dL 74-106 [facility] Comment on above: Fasting Glucose resu lt from 100 to 125 mg/dL suggests IMPAIRED HOMEOSTASIS per A.D.A. criteria. Neutrophils (Bld) [#/Vol] 6.1 10*3/uL 2.0-7.7 [facility] Neutrophils/100 WBC (Bld) 72.5 % 47-70 [facility] Potassium [Moles/Vol] 3.8 mmol/L 3.5-5.1 [facility] Sodium [Moles/Vol] 133 mmol/L 136-145 [facility] WBC (Bld) [#/Vol] 8.3 10*3/uL 4.4-11.0 [facility] Blood erythrocytes count (nu mber/volume)on 11-09-2022 RBC (Bld) [#/Vol] 3.93 10*6/uL 4.2-5.4 [facility] Blood hemoglobin measurement (mass/volume)on 11-09-2022 Hemoglobin (Bld) [Mass/Vol] 12.2 g/dL 12.0-15.0 [facility] Blood lymphocytes/100 leukoc yteson 11-09-2022 Lymphocytes/100 WBC (Bld) 16.9 % 19-41 [facility] Blood monocytes/100 leukocyt eson 11-09-2022 Monocytes/100 WBC (Bld) 8.8 % 0-10 [facility] Blood platelet mean volumeon 11-09-2022 Platelet mean volume (Bld) [Entitic vol] 9.8 fL 6.2-12.0 [facility] Determination of erythrocyte mean corpuscular volume (MCV)on 11-09-2022 MCV (RBC) [Entitic vol] 88.3 fL 81-99 [facility] Hematocrit Auto (Bld) [Volum e fraction]on 11-09-2022 Hematocrit (Bld) [Volume fraction] 34.7 % 37-47 [facility] INR in Blood by Coagulation assayon 11-09-2022 INR Coag (Bld) [Relative time] 0.9 {INR} [facility] Laboratory - Chemistry and C hemistry - challengeon 11-09-2022 CO2 [Moles/Vol] 27.0 mmol/L 21.0-32.0 [facility] Urea nitrogen/Creatinine [Mass ratio] 21.3 mg/mg 10-20 [facility] Laboratory - Coagulationon 0 11-09-2022 aPTT Coag (Bld) [Time] 29.1 s 24.1-36.2 [facility] PT Coag (PPP) [Time] 12.5 s 11.7-14.9 [facility] Laboratory - Hematology and Cell countson 11-09-2022 Erythrocyte distribution width (RBC) [Entitic vol] 42.7 fL 35.1-43.9 [facility] Erythrocyte distribution width (RBC) [Ratio] 13.2 % 11.6-14.6 [facility] Immature granulocytes/100 WBC (Bld) 0.400 % 0.0-0.9 [facility] Comment on above: IG% - Immature Granu locytes (promyelocytes, myelocytes and metamyelocytes) > 1% indicates that a LEFT SHIFT is Present. MCH (RBC) [Entitic mass] 31.0 pg 27.0-32.0 [facility] Nucleated RBC/100 WBC (Bld) [Ratio] 0 % 0-5 [facility] MCHC Auto (RBC) [Mass/Vol]on 11-09-2022 MCHC (RBC) [Mass/Vol] 35.2 g/dL 32-36 [facility] No Panel Informationon 11-09 Estimated GFR (MDRD) Amer 103 mL/min >60 [facility] Comment on above: GFR Calc Estimated GFR (MDRD) Non-Af Amer 85 mL/min >60 [facility] Comment on above: Non- GFR Calc Platelets bldon 11-09-2022 Platelets (Bld) [#/Vol] 272 10*3/uL 150-450 [facility] Serum or plasma calcium ena urement (mass/volume)on 11-09-2022 Calcium [Mass/Vol] 9.3 mg/dL 8.5-10.1 [facility] Serum or plasma creatinine m easurement (mass/volume)on 11-09-2022 Creatinine [Mass/Vol] 0.70 mg/dL 0.55-1.02 [facility] Comment on above: The validity of the calculated GFR & GFRAA in patients over 70 years has not been determined. Clinical correlation is essential. Serum or plasma urea nitroge n measurement (mass/volume)on 11-09-2022 Urea nitrogen [Mass/Vol] 15 mg/dL 7-18 [facility] Thin prep Papanicolaou smear with manual screeningon 11-09-2022 Thin prep Papanicolaou smear with manual screening 6 5-15 [facility] EXTRA MICROon 10-09-2022 [facility] SCREEN: MRSA/MSSAOrdered By: Patrick Galicia on 10-09-2022 Interpretation and review of laboratory results Normal [facility] Methicillin Resistant S. Aureus By Pcr Negative Negative [facility] Staphylococcus Aureus By Pcr Negative Negative [facility] This test was perfor med using [...] by the Clinical Microbiology Laboratory at [facility]. It has not been cleared or approved by the FDA.The laboratory is regulated under CLIA as qualified to perform high-complexity testing. This test is used for clinical purposes. It should not be regarded as investigational or for research. [facility] CBC AND ELECTRONIC DIFFon Basophils (Bld) [#/Vol] 0.05 10*3/uL 0.00 - 0.15 K/uL [facility] Basophils/100 WBC (Bld) 0.5 % [facility] Differential cell count method Nom (Bld) Electronic Differential O [facility] Eosinophils (Bld) [#/Vol] 0.08 10*3/uL 0.00 - 0.42 K/uL [facility] Eosinophils/100 WBC (Bld) 0.8 % [facility] Erythrocyte distribution width (RBC) [Ratio] 12.9 % 10.8 - 14.9 % [facility] Hematocrit (Bld) [Volume fraction] 38.0 % 34.9 - 44.3 % [facility] Hemoglobin (Bld) [Mass/Vol] 13.0 g/dL 11.4 - 15.2 g/dL [facility] Immature granulocytes (Bld) [#/Vol] 0.05 10*3/uL NINF - 0.08 K/uL [facility] Immature granulocytes/100 WBC (Bld) 0.5 % [facility] Interpretation and review of laboratory results Abnormal [facility] Lymphocytes (Bld) [#/Vol] 1.34 10*3/uL 1.16 - 3.51 K/uL [facility] Lymphocytes/100 WBC (Bld) 13.4 % [facility] MCH (RBC) [Entitic mass] 29.5 pg 25.9 - 33.9 pg [facility] MCHC (RBC) [Mass/Vol] 34.2 g/dL 31.4 - 35.9 g/dL [facility] MCV (RBC) [Entitic vol] 86.2 fL 79.6 - 97.7 fL [facility] Monocytes (Bld) [#/Vol] 0.76 10*3/uL 0.22 - 0.87 K/uL [facility] Monocytes/100 WBC (Bld) 7.6 % [facility] Neutrophils (Bld) [#/Vol] 7.74 10*3/uL High 1.64 - 7.28 K/uL [facility] Nucleated RBC/100 WBC (Bld) [Ratio] 0.0 % NINF [facility] Platelet mean volume (Bld) [Entitic vol] 10.3 fL 8.5 - 12.2 fL [facility] Platelets (Bld) [#/Vol] 280 10*3/uL 150 - 393 K/uL [facility] RBC (Bld) [#/Vol] 4.41 10*6/uL [facility] Segmented neutrophils/100 WBC (Bld) 77.2 % [facility] WBC (Bld) [#/Vol] 10.02 10*3/uL 3.99 - 11.19 K/uL [facility] CHEM 7 (LYTES,BUN,CREA,GLUC) on 10-08-2022 Anion gap [Moles/Vol] 11 mmol/L 7 - 17 mmol/L [facility] Chloride [Moles/Vol] 93 mmol/L Low 98 - 10 8 mmol/L [facility] CO2 [Moles/Vol] 28 mmol/L 21 - 31 mmol/L [facility] Creatinine [Mass/Vol] 0.72 mg/dL 0.50 - 1.20 mg/dL [facility] GFR/1.73 sq M.predicted CKD-EPI (S/P/Bld) [Vol rate/Area] 86 - PINF [facility] Comment on above: Reported eGFR is bas ed on the CKD-EPI 2020 equation using creatinine, age, and sex. Glucose [Mass/Vol] 106 mg/dL High 70 - 99 mg/dL [facility] Interpretation and review of laboratory results Abnormal [facility] Osmolality Calc [Osmolality] 272 Low [facility] Potassium [Moles/Vol] 4.3 mmol/L 3.5 - 5.0 mmol/L [facility] Sodium [Moles/Vol] 128 mmol/L Low 135 - 145 mmol/L [facility] Urea nitrogen [Mass/Vol] 15 mg/dL 7 - 25 mg/dL [facility] Urea nitrogen/Creatinine [Mass ratio] 21 mg/mg [facility] EXTRA LIGHT BLUE TOP DOUBLE SPINon 10-08-2022 Dummy LRR - Route to Double Spin Received [facility] PREPARE TO TRANSFUSE OR RED BLOOD CELLSon 10-08-2022 [facility] PROTIME-INRon 10-08-2022 INR Coag (Bld) [Relative time] 1.0 {INR} 0.9 - 1.1 [facility] Interpretation and review of laboratory results Normal [facility] PT [facility]PPP) [[facility] STUDY PERF ONLY Ordered By: Adia Ross on 10-08-2022 aPTT Coag (PPP) [Time] 28.7 s [facility] PTT Mixing Study With Normal Plasma Not Indicated [facility] TYPE AND SCREEN - PREADMISSI ONon 10-08-2022 ABO/RH(D) TYPE AB NEG [facility] URINALYSIS REFLEX TO CULTURE PERFORMABLEOrdered By: Paula Dixon on 10-08-2022 Appearance (U) Clear Clear [facility] Bacteria LM Ql (Urine sed) TRACE Abnormal ABSENT [facility] Color (U) Yellow Yellow [facility] Epithelial cells.squamous LM Ql (Urine sed) 1/hpf = 1+ 1/hpf = 1+, 2-5/hpf = 2+, 0/hpf = 0+, ABSENT [facility] Glucose Test strip (U) [Mass/Vol] Negative Negative [facility] Interpretation and review of laboratory results Abnormal [facility] Ketones (U) [Mass/Vol] Negative Negative [facility] Leukocyte esterase Test strip Ql (U) Trace Abnormal Negative [facility] Nitrite Ql (U) Negative Negative [facility] pH (U) 7.0 [pH] 5.0 - 7.0 [facility] Protein (U) [Mass/Vol] Negative Negative [facility] RBC (U) [#/Vol] Negative Negative [facility] RBC LM.HPF (Urine sed) [#/Area] 0-2 [facility] Specific gravity (U) [Rel density] 1.015 1.001 - PINF [facility] Urobilinogen (U) [Mass/Vol] 0.2 E.U./dL 0.2 E.U/dL, 1.0 E.U/dL [facility] WBC LM.HPF (Urine sed) [#/Area] 0-5 [facility] XR Chest PA and Lateralon IMPRESSION: [...] Normal IMPRESSION IMPRESSION: No acute cardiopulmonary disease [facility] Radiology Study observation (narrative) [facility] XR Chest PA and LateralOrder ed By: Abraham Bahena on 10-08-2022 [facility] Work Phone: CT Cheston 10-06-2022 IMPRESSION: [...] separately. IMPRESSION IMPRESSION: Agree with outside interpretation. [facility] CT ChestOrdered By: Ernie Coburn on 10-06-2022 [facility] Work Phone: CT Abdomen and Pelvison Outside Imaging Stud y for Support of Clinical Care This study was sent from an outside facility to [facility] for support of clinical care of the patient within the [facility] system. [facility] CT Cheston 10-04-2022 Radiology Study observation (narrative) [facility] Basophil percentageOrdered B y: Dr. Venegas on 09-21-2022 Chloride [Moles/Vol] 101 mmol/L 98-107 [facility] Cholesterol [Mass/Vol] 164 mg/dL <200 [facility] Comment on above: <200 mg/dL Desirable 200-240 mg/dL Borderline >240 mg/dL High Risk Glucose [Mass/Vol] 107 mg/dL 74-106 [facility] Comment on above: Fasting Glucose resu lt from 100 to 125 mg/dL suggests IMPAIRED HOMEOSTASIS per A.D.A. criteria. Potassium [Moles/Vol] 3.7 mmol/L 3.5-5.1 [facility] Sodium [Moles/Vol] 132 mmol/L 136-145 [facility] Triglyceride [Mass/Vol] 97 mg/dL <199 [facility] Comment on above: The drugs N-Acetylcy steine and Metamizole may falsely depress this assay.Serum Triglycerides Reference Interval Normal <150 mg/dL Borderline high 150 - 199 mg/dL High 200 - 499 mg/dL Very High > or = 500 mg/dL Laboratory - Chemistry and C hemistry - challengeOrdered By: Dr. Venegas on 09-21-2022 ALT [Catalytic activity/Vol] 28 U/L 13-56 [facility] CO2 [Moles/Vol] 26.0 mmol/L 21.0-32.0 [facility] Urea nitrogen/Creatinine [Mass ratio] 19.0 mg/mg 10-20 [facility] No Panel InformationOrdered By: Dr. Venegas on 09-21-2022 Estimated GFR (MDRD) Amer 98 mL/min >60 [facility] Comment on above: GFR Calc Estimated GFR (MDRD) Non-Af Amer 81 mL/min >60 [facility] Comment on above: Non- GFR Calc Urine Microalbumin/Creatinin e Ratio 21.9 mg/g CRE <30 [facility] Serum or plasma calcium ena urement (mass/volume)Ordered By: Dr. Venegas on 09-21-2022 Calcium [Mass/Vol] 9.3 mg/dL 8.5-10.1 [facility] Serum or plasma cholesterol in HDL measurement (mass/volume)Ordered By: Dr. Venegas on 09-21-2022 Cholesterol in HDL [Mass/Vol] 63 mg/dL >40 [facility] Comment on above: The drugs N-Acetylcy steine and Metamizole may falsely depress this assay. Reference Range HDL <40 mg/dL Low HDL Cholesterol HDL >or= 60 mg/dL High HDL Cholesterol Serum or plasma cholesterol in VLDL measurement (mass/volume)Ordered By: Dr. Venegas on 09-21-2022 Cholesterol in VLDL [Mass/Vol] 19 mg/dL 5-40 [facility] Serum or plasma creatinine m easurement (mass/volume)Ordered By: Dr. Venegas on 09-21-2022 Creatinine [Mass/Vol] 0.74 mg/dL 0.55-1.02 [facility] Comment on above: The validity of the calculated GFR & GFRAA in patients over 70 years has not been determined. Clinical correlation is essential. Serum or plasma low density lipoprotein (LDL) cholesterol measurement (mass/volume)Ordered By: Dr. Venegas on 09-21-2022 Cholesterol in LDL [Mass/Vol] 82 mg/dL 0-130 [facility] Serum or plasma urea nitroge n measurement (mass/volume)Ordered By: Dr. Venegas on 09-21-2022 Urea nitrogen [Mass/Vol] 14 mg/dL 7-18 [facility] Thin prep Papanicolaou smear with manual screeningOrdered By: Dr. Venegas on 09-21-2022 Thin prep Papanicolaou smear with manual screening 18 U/L 15-37 [facility] Thin prep Papanicolaou smear with manual screening 5 5-15 [facility] Thin prep Papanicolaou smear with manual screening 7.6 mg/L NO RANGE EST. [facility] Urine creatinine measurement (mass/volume)Ordered By: Dr. Venegas on 09-21-2022 Creatinine (U) [Mass/Vol] 34.60 mg/dL NO RANGE EST. [facility] Basophil percentageon 2021 Chloride [Moles/Vol] 101 mmol/L 98-107 [facility] Work Phone: Cholesterol [Mass/Vol] 155 mg/dL <200 [facility] Work Phone: Comment on above: <200 mg/dL Desirable 200-240 mg/dL Borderline >240 mg/dL High Risk Glucose [Mass/Vol] 152 mg/dL 74-106 [facility] Work Phone: Comment on above: Fasting Glucose resu lt greater than or equal to 126 mg/dL suggests DIABETES MELLITUS per A.D.A. criteria. Potassium [Moles/Vol] 3.7 mmol/L 3.5-5.1 [facility] Work Phone: Sodium [Moles/Vol] 135 mmol/L 136-145 [facility] Work Phone: Triglyceride [Mass/Vol] 180 mg/dL <199 [facility] Work Phone: Comment on above: The drugs N-Acetylcy steine and Metamizole may falsely depress this assay.Serum Triglycerides Reference Interval Normal <150 mg/dL Borderline high 150 - 199 mg/dL High 200 - 499 mg/dL Very High > or = 500 mg/dL Laboratory - Chemistry and C hemistry - challengeon 03-23-2022 ALT [Catalytic activity/Vol] 26 U/L 13-56 [facility] Work Phone: CO2 [Moles/Vol] 27.0 mmol/L 21.0-32.0 [facility] Work Phone: Urea nitrogen/Creatinine [Mass ratio] 23.6 mg/mg 10-20 [facility] Work Phone: No Panel Informationon 03-23 Estimated GFR (MDRD) Amer 79 mL/min >60 [facility] Work Phone: Comment on above: GFR Calc Estimated GFR (MDRD) Non-Af Amer 65 mL/min >60 [facility] Work Phone: Comment on above: Non- GFR Calc Serum or plasma calcium ena urement (mass/volume)on 03-23-2022 Calcium [Mass/Vol] 9.4 mg/dL 8.5-10.1 [facility] Work Phone: Serum or plasma cholesterol in HDL measurement (mass/volume)on 03-23-2022 Cholesterol in HDL [Mass/Vol] 53 mg/dL >40 [facility] Work Phone: Comment on above: The drugs N-Acetylcy steine and Metamizole may falsely depress this assay. Reference Range HDL <40 mg/dL Low HDL Cholesterol HDL >or= 60 mg/dL High HDL Cholesterol Serum or plasma cholesterol in VLDL measurement (mass/volume)on 03-23-2022 Cholesterol in VLDL [Mass/Vol] 36 mg/dL 5-40 [facility] Work Phone: Serum or plasma creatinine m easurement (mass/volume)on 03-23-2022 Creatinine [Mass/Vol] 0.89 mg/dL 0.55-1.02 [facility] Work Phone: Comment on above: The validity of the calculated GFR & GFRAA in patients over 70 years has not been determined. Clinical correlation is essential. Serum or plasma low density lipoprotein (LDL) cholesterol measurement (mass/volume)on 03-23-2022 Cholesterol in LDL [Mass/Vol] 66 mg/dL 0-130 [facility] Work Phone: Serum or plasma urea nitroge n measurement (mass/volume)on 03-23-2022 Urea nitrogen [Mass/Vol] 21 mg/dL -18 [facility] Work Phone: Thin prep Papanicolaou smear with manual screeningon 03-23-2022 Thin prep Papanicolaou smear with manual screening 17 U/L 15-37 [facility] Work Phone: Thin prep Papanicolaou smear with manual screening 7 5-15 [facility] Work Phone: Vital Signs Date Time Vital Sign Value Performing Clinician Facility 03-13-2025 08:15-0400 Body mass index (BMI) [Ratio] 22.6 kg/m2 Dr. Monika Venegas MD Work Phone: [facility] 03-13-2025 08:15-0400 Body weight 45.[address] Monika Venegas MD Work Phone: [facility] 03-13-2025 08:15-0400 Diastolic blood pressure 53 mm[Hg] Dr. Monika Venegas MD Work Phone: [facility] 03-13-2025 08:15-0400 Heart rate 61 /min Dr. Monika Venegas MD Work Phone: [facility] 03-13-2025 08:15-0400 Respiratory rate 18 /min Dr. Monika Venegas MD Work Phone: [facility] 03-13-2025 08:15-0400 Systolic blood pressure 110 mm[Hg] Dr. Monika Venegas MD Work Phone: [facility] 02-26-2025 09:53-0400 Body temperature 98.6 [degF] Dr. Monika Venegas MD Work Phone: [facility] 02-26-2025 09:53-0400 Body weight 47.[address] Monika Venegas MD Work Phone: 0(310)477-796826 [place] [address] 02-26-2025 09:53-0400 Diastolic blood pressure 63 mm[Hg] Dr. Monika Venegas MD Work Phone: 9(078)987-910945 [place] [address] 02-26-2025 09:53-0400 Heart rate 63 /min Dr. Monika Venegas MD Work Phone: 7(092)546-939945 [place] [address] 02-26-2025 09:53-0400 Respiratory rate 17 /min Dr. Monika Venegas MD Work Phone: 3(506)064-979745 [place] [address] 02-26-2025 09:53-0400 SaO2% (BldA) [Mass fraction] 97 % Dr. Monika Venegas MD Work Phone: 4(209)889-128945 [place] [address] 02-26-2025 09:53-0400 Systolic blood pressure 131 mm[Hg] Dr. Monika Venegas MD Work Phone: 0(157)724-738445 [place] [address] 01-31-2025 14:41-0400 Body weight 50.[address] Monika Venegas MD Work Phone: 6(131)590-356945 [place] [address] 01-31-2025 14:41-0400 Diastolic blood pressure 53 mm[Hg] Dr. Monika Venegas MD Work Phone: 2(485)348-564345 [place] [address] 01-31-2025 14:41-0400 Heart rate 62 /min Dr. Monika Venegas MD Work Phone: 4(626)926-191845 [place] [address] 01-31-2025 14:41-0400 Respiratory rate 18 /min Dr. Monika Venegas MD Work Phone: 8(931)927-104426 [place] [address] 01-31-2025 14:41-0400 Systolic blood pressure 183 mm[Hg] Dr. Monika Venegsa MD Work Phone: 8(727)861-337645 [place] [address] 01-18-2025 15:32-0400 Body height 142.[address] Monika Venegas MD Work Phone: 6(813)680-877226 [place] [address] 01-18-2025 15:32-0400 Body mass index (BMI) [Ratio] 23.8 kg/m2 Dr. Monika Venegas MD Work Phone: 5(926)159-582926 [place] [address] 01-18-2025 15:32-0400 Body weight 48.[address] Monika Venegas MD Work Phone: 2(011)183-523426 [place] [address] 01-18-2025 15:32-0400 Diastolic blood pressure 56 mm[Hg] Dr. Monika Venegas MD Work Phone: 3(298)145-806426 [place] [address] 01-18-2025 15:32-0400 Heart rate 65 /min Dr. Monika Venegas MD Work Phone: 9(098)427-441845 [place] [address] 01-18-2025 15:32-0400 Respiratory rate 18 /min Dr. Monika Venegas MD Work Phone: 4(491)990-262245 [place] [address] 01-18-2025 15:32-0400 SaO2% (BldA) [Mass fraction] 98 % Dr. Monika Venegas MD Work Phone: 3(248)844-057445 [place] [address] 01-18-2025 15:32-0400 Systolic blood pressure 174 mm[Hg] Dr. Monika Venegas MD Work Phone: 2(416)020-423526 [place] [address] 12-20-2024 11:19-0400 Body temperature 98.3 [degF] Dr. Monika Venegas MD Work Phone: 8(313)247-264245 [place] [address] 12-20-2024 11:19-0400 Diastolic blood pressure 72 mm[Hg] Dr. Monika Venegas MD Work Phone: 4(621)231-238445 [place] [address] 12-20-2024 11:19-0400 Heart rate 63 /min Dr. Monika Venegas MD Work Phone: 7(300)400-023426 [place] [address] 12-20-2024 11:19-0400 Respiratory rate 16 /min Dr. Monika Venegas MD Work Phone: 9(658)802-998814 [address] 12-20-2024 11:19-0400 SaO2% (BldA) [Mass fraction] 98 % Dr. Monika Venegas MD Work Phone: 0(956)598-433326 [place] [address] 12-20-2024 11:19-0400 Systolic blood pressure 162 mm[Hg] Dr. Monika Venegas MD Work Phone: 7(128)929-979145 [place] [address] 12-20-2024 08:52-0400 Body temperature 98.2 [degF] Dr. Monika Venegas MD Work Phone: 5(545)222-978245 [place] [address] 12-20-2024 08:52-0400 Diastolic blood pressure 65 mm[Hg] Dr. Monika Venegas MD Work Phone: 3(260)554-929845 [place] [address] 12-20-2024 08:52-0400 Heart rate 67 /min Dr. Monika Venegas MD Work Phone: 3(101)411-188545 [place] [address] 12-20-2024 08:52-0400 Respiratory rate 17 /min Dr. Monika Venegas MD Work Phone: 4(677)393-804645 [place] [address] 12-20-2024 08:52-0400 SaO2% (BldA) [Mass fraction] 99 % Dr. Monika Venegas MD Work Phone: 6(308)278-807145 [place] [address] 12-20-2024 08:52-0400 Systolic blood pressure 182 mm[Hg] Dr. Monika Venegas MD Work Phone: 6(451)787-727845 [place] [address] 12-11-2024 15:21-0400 Body height 142.[address] Monika Venegas MD Work Phone: 5(559)063-212845 [place] [address] 12-11-2024 15:21-0400 Body mass index (BMI) [Ratio] 24.4 kg/m2 Dr. Monika Venegas MD Work Phone: 9(105)957-488445 [place] [address] 12-11-2024 15:21-0400 Body weight 49.[address] Monika Venegas MD Work Phone: 1(798)337-242245 [place] [address] 12-11-2024 15:21-0400 Diastolic blood pressure 56 mm[Hg] Dr. Monika Venegas MD Work Phone: 8(844)706-848645 [place] [address] 12-11-2024 15:21-0400 Heart rate 64 /min Dr. Monika Venegas MD Work Phone: 3(578)832-579145 [place] [address] 12-11-2024 15:21-0400 Respiratory rate 18 /min Dr. Monika Venegas MD Work Phone: 1(978)569-425845 [place] [address] 12-11-2024 15:21-0400 SaO2% (BldA) [Mass fraction] 94 % Dr. Monika Venegas MD Work Phone: 9(063)981-336626 [place] [address] 12-11-2024 15:21-0400 Systolic blood pressure 127 mm[Hg] Dr. Monika Venegas MD Work Phone: 1(790)204-055145 [place] [address] 12-06-2024 21:13-0400 Body temperature 97.7 [degF] Dr. Monika Veengas MD Work Phone: 3(920)231-797345 [place] [address] 12-06-2024 21:13-0400 Diastolic blood pressure 44 mm[Hg] Dr. Monika Venegas MD Work Phone: 4(613)534-537645 [place] [address] 12-06-2024 21:13-0400 Heart rate 68 /min Dr. Monika Venegas MD Work Phone: 3(544)008-130045 [place] [address] 12-06-2024 21:13-0400 Respiratory rate 16 /min Dr. Monika Venegas MD Work Phone: 6(506)504-750645 [place] [address] 12-06-2024 21:13-0400 SaO2% (BldA) [Mass fraction] 97 % Dr. Monika Venegas MD Work Phone: 8(293)472-765645 [place] [address] 12-06-2024 21:13-0400 Systolic blood pressure 161 mm[Hg] Dr. Monika Venegas MD Work Phone: 1(752)666-861345 [place] [address] 12-06-2024 03:08-0400 Body mass index (BMI) [Ratio] 23.9 kg/m2 Dr. Monika Venegas MD Work Phone: 9(062)400-525645 [place] [address] 12-06-2024 03:08-0400 Body weight 48.[address] Monika Venegas MD Work Phone: 5(402)257-353945 [place] [address] 12-04-2024 10:59-0400 Body height 142.[address] Monika Venegas MD Work Phone: 6(123)680-669845 [place] [address] 12-03-2024 22:00-0400 Body temperature 97.8 [degF] Dr. Monika Venegas MD Work Phone: [facility] 12-03-2024 22:00-0400 Diastolic blood pressure 55 mm[Hg] Dr. Monika Venegas MD Work Phone: 6(859)481-037445 [place] [address] 12-03-2024 22:00-0400 Heart rate 60 /min Dr. Monika Venegas MD Work Phone: 2(159)558-603545 [place] [address] 12-03-2024 22:00-0400 Respiratory rate 15 /min Dr. Monika Venegas MD Work Phone: 7(315)875-691445 [place] [address] 12-03-2024 22:00-0400 SaO2% (BldA) [Mass fraction] 97 % Dr. Monika Venegas MD Work Phone: 2(399)445-754245 [place] [address] 12-03-2024 22:00-0400 Systolic blood pressure 159 mm[Hg] Dr. Monika Venegas MD Work Phone: 2(278)508-001045 [place] [address] 12-03-2024 17:32-0400 Body mass index (BMI) [Ratio] 25.3 kg/m2 Dr. Monika Venegas MD Work Phone: 9(769)993-946245 [place] [address] 12-03-2024 17:32-0400 Body weight 49.[address] Monika Venegas MD Work Phone: 8(378)713-587145 [place] [address] 12-03-2024 15:46-0400 Body height 139.[address] Monika Venegas MD Work Phone: 9(449)535-330545 [place] [address] 11-29-2024 08:20-0400 Diastolic blood pressure 44 mm[Hg] Dr. Monika Venegas MD Work Phone: 8(463)036-533845 [place] [address] 11-29-2024 08:20-0400 Heart rate 70 /min Dr. Monika Venegas MD Work Phone: 6(661)894-376145 [place] [address] 11-29-2024 08:20-0400 Systolic blood pressure 126 mm[Hg] Dr. Monika Venegas MD Work Phone: 5(048)351-555745 [place] [address] 11-29-2024 06:18-0400 Body temperature 98.7 [degF] Dr. Monika Venegas MD Work Phone: [facility] 11-29-2024 06:18-0400 Respiratory rate 20 /min Dr. Monika Venegas MD Work Phone: [facility] 11-29-2024 06:18-0400 SaO2% (BldA) [Mass fraction] 97 % Dr. Monika Venegas MD Work Phone: [facility] 11-26-2024 10:00-0400 Body height 139.[address] Monika Venegas MD Work Phone: [facility] 11-26-2024 10:00-0400 Body weight 48.[address] Monika Venegas MD Work Phone: [facility] 11-23-2024 05:03-0400 Body mass index (BMI) [Ratio] 24.7 kg/m2 Dr. Monika Venegas MD Work Phone: [facility] 11-12-2024 11:54-0400 Body height 142.2 cm Ignacio De La Garza Sr., MD, PhD Work Phone: [facility] 11-12-2024 11:54-0400 Body mass index (BMI) [Ratio] 24.89 kg/m2 Ignacio De La Garza Sr., MD, PhD Work Phone: [facility] 11-12-2024 11:54-0400 Body temperature 97.9 [degF] Ignacio De La Garza Sr., MD, PhD Work Phone: [facility] 11-12-2024 11:54-0400 Body weight 50.35 kg Ignacio De La Garza Sr., MD, PhD Work Phone: [facility] 11-12-2024 11:54-0400 Diastolic blood pressure 66 mm[Hg] Ignacio De La Garza Sr., MD, PhD Work Phone: [facility] 11-12-2024 11:54-0400 Heart rate 59 /min Ignacio De La Garza Sr., MD, PhD Work Phone: [facility] 11-12-2024 11:54-0400 Respiratory rate 18 /min Ignacio De La Garza Sr., MD, PhD Work Phone: [facility] 11-12-2024 11:54-0400 SaO2% (BldA) [Mass fraction] 98 % Ignacio De La Garza Sr., MD, PhD Work Phone: [facility] 11-12-2024 11:54-0400 Systolic blood pressure 150 mm[Hg] Ignacio De La Garza Sr., MD, PhD Work Phone: [facility] 11-07-2024 12:00-0400 Diastolic blood pressure 59 mm[Hg] Dr. Monika Venegas MD Work Phone: [facility] 11-07-2024 12:00-0400 Heart rate 58 /min Dr. Monika Venegas MD Work Phone: [facility] 11-07-2024 12:00-0400 Respiratory rate 20 /min Dr. Monika Venegas MD Work Phone: [facility] 11-07-2024 12:00-0400 SaO2% (BldA) [Mass fraction] 100 % Dr. Monika Venegas MD Work Phone: [facility] 11-07-2024 12:00-0400 Systolic blood pressure 194 mm[Hg] Dr. Monika Venegas MD Work Phone: [facility] 11-07-2024 11:07-0400 Body mass index (BMI) [Ratio] 26.1 kg/m2 Dr. Monika Venegas MD Work Phone: [facility] 11-07-2024 11:07-0400 Body temperature 97.9 [degF] Dr. Monika Venegas MD Work Phone: [facility] 11-07-2024 11:07-0400 Body weight [address] Monika Venegas MD Work Phone: [facility] 11-07-2024 10:59-0400 Body mass index (BMI) [Ratio] 24 kg/m2 Dr. Monika Venegas MD Work Phone: [facility] 11-07-2024 10:59-0400 Body weight [address] Monika Venegas MD Work Phone: [facility] 11-07-2024 10:52-0400 Body temperature 98.7 [degF] Dr. Monika Venegas MD Work Phone: 3(769)899-094326 [place] [address] 09-27-2024 13:05-0400 Diastolic blood pressure 64 mm[Hg] Dr. Monika Venegas MD Work Phone: 7(766)040-379126 [place] [address] 09-27-2024 13:05-0400 Heart rate 51 /min Dr. Monika Venegas MD Work Phone: [facility] 09-27-2024 13:05-0400 Respiratory rate 16 /min Dr. Monika Venegas MD Work Phone: [facility] 09-27-2024 13:05-0400 SaO2% (BldA) [Mass fraction] 98 % Dr. Monika Venegas MD Work Phone: [facility] 09-27-2024 13:05-0400 Systolic blood pressure 180 mm[Hg] Dr. Monika Venegas MD Work Phone: [facility] 09-27-2024 09:20-0400 Body height 142.[address] Monika Venegas MD Work Phone: [facility] 09-27-2024 09:20-0400 Body mass index (BMI) [Ratio] 24.8 kg/m2 Dr. Monika Venegas MD Work Phone: [facility] 09-27-2024 09:20-0400 Body temperature 98 [degF] Dr. Monika Venegas MD Work Phone: [facility] 09-27-2024 09:20-0400 Body weight 50.[address] Monika Venegas MD Work Phone: [facility] 07-11-2024 11:09-0500 Body mass index (BMI) [Ratio] 24.98 kg/m2 Nimo Bueno MD Work Phone: [facility] 07-11-2024 11:09-0500 Body temperature 97.5 [degF] Nimo Bueno MD Work Phone: 4(376)936-140269 [address] 07-11-2024 11:09-0500 Body weight 50.53 kg Nimo Bueno MD Work Phone: 5(251)715-034469 [address] 07-11-2024 11:09-0500 Diastolic blood pressure 70 mm[Hg] Nimo Bueno MD Work Phone: 2(996)782-869748 [place] [address] Comment on above: manual 07-11-2024 11:09-0500 Heart rate 57 /min Nimo Bueno MD Work Phone: [facility] 07-11-2024 11:09-0500 Respiratory rate 16 /min Nimo Bueno MD Work Phone: [facility] 07-11-2024 11:09-0500 SaO2% (BldA) [Mass fraction] 97 % Nimo Bueno MD Work Phone: [facility] 07-11-2024 11:09-0500 Systolic blood pressure 162 mm[Hg] Nimo Bueno MD Work Phone: [facility] Comment on above: manual 03-14-2024 15:48-0400 Body mass index (BMI) [Ratio] 25.18 kg/m2 Nimo Bueno MD Work Phone: [facility] 03-14-2024 15:48-0400 Body temperature 97.5 [degF] Nimo Bueno MD Work Phone: [facility] 03-14-2024 15:48-0400 Body weight 50.94 kg Nimo Bueno MD Work Phone: [facility] 03-14-2024 15:48-0400 Diastolic blood pressure 68 mm[Hg] Nimo Bueno MD Work Phone: [facility] 03-14-2024 15:48-0400 Heart rate 56 /min Nimo Bueno MD Work Phone: [facility] 03-14-2024 15:48-0400 Respiratory rate 16 /min Nimo Bueno MD Work Phone: [facility] 03-14-2024 15:48-0400 SaO2% (BldA) [Mass fraction] 98 % Nimo Bueno MD Work Phone: [facility] 03-14-2024 15:48-0400 Systolic blood pressure 140 mm[Hg] Nimo Bueno MD Work Phone: [facility] 03-14-2024 13:56-0400 Diastolic blood pressure 87 mm[Hg] Nimo Bueno MD Work Phone: [facility] 03-14-2024 13:56-0400 Heart rate 55 /min Nimo Bueno MD Work Phone: [facility] 03-14-2024 13:56-0400 Systolic blood pressure 220 mm[Hg] Nimo Bueno MD Work Phone: [facility] 11-29-2023 15:40-0400 Body mass index (BMI) [Ratio] 26.21 kg/m2 Nimo Bueno MD Work Phone: [facility] 11-29-2023 15:40-0400 Body temperature 97.39 [degF] Nimo Bueno MD Work Phone: [facility] 11-29-2023 15:40-0400 Body weight 53.02 kg Nimo Bueno MD Work Phone: [facility] 11-29-2023 15:40-0400 Diastolic blood pressure 60 mm[Hg] Nimo Bueno MD Work Phone: [facility] 11-29-2023 15:40-0400 Heart rate 56 /min Nimo Bueno MD Work Phone: [facility] 11-29-2023 15:40-0400 Respiratory rate 16 /min Nimo Bueno MD Work Phone: [facility] 11-29-2023 15:40-0400 SaO2% (BldA) [Mass fraction] 98 % Nimo Bueno MD Work Phone: [facility] 11-29-2023 15:40-0400 Systolic blood pressure 128 mm[Hg] Nimo Bueno MD Work Phone: [facility] 11-29-2023 13:38-0400 Diastolic blood pressure 77 mm[Hg] Nimo Bueno MD Work Phone: [facility] 11-29-2023 13:38-0400 Heart rate 58 /min Nimo Bueno MD Work Phone: [facility] 11-29-2023 13:38-0400 Systolic blood pressure 199 mm[Hg] Nimo Bueno MD Work Phone: [facility] 08-18-2023 13:25-0400 Diastolic blood pressure 92 mm[Hg] Kristine Salts PRINCIPAL SCIENTIST-[employer]Y CLEANER Work Phone: [facility] 08-18-2023 13:25-0400 Heart rate 66 /min Kristine Salts PRINCIPAL SCIENTIST-[employer]Y CLEANER Work Phone: [facility] 08-18-2023 13:25-0400 Systolic blood pressure 202 mm[Hg] Kristine Su ABREU Work Phone: [facility] 07-19-2023 13:50-0500 Body height 142.[address] Monika Venegas Work Phone: [facility] 07-19-2023 13:49-0500 Body mass index (BMI) [Ratio] 26.4 kg/m2 Dr. Monika Venegas Work Phone: [facility] 07-19-2023 13:49-0500 Body weight 53.[address] Monika Venegas Work Phone: [facility] 07-19-2023 13:49-0500 Diastolic blood pressure 70 mm[Hg] Dr. Monika Venegas Work Phone: [facility] 07-19-2023 13:49-0500 Heart rate 63 /min Dr. Monika Venegas Work Phone: [facility] 07-19-2023 13:49-0500 Respiratory rate 18 /min Dr. Monika Venegas Work Phone: [facility] 07-19-2023 13:49-0500 SaO2% (BldA) [Mass fraction] 99 % Dr. Monika Venegas Work Phone: [facility] 07-19-2023 13:49-0500 Systolic blood pressure 179 mm[Hg] Dr. Monika Venegas Work Phone: [facility] 05-19-2023 14:01-0500 Body mass index (BMI) [Ratio] 27.89 kg/m2 Nimo Bueno MD Work Phone: [facility] 05-19-2023 14:01-0500 Body temperature 97.2 [degF] Nimo Bueno MD Work Phone: [facility] 05-19-2023 14:01-0500 Body weight 56.43 kg Nimo Bueno MD Work Phone: [facility] 05-19-2023 14:01-0500 Diastolic blood pressure 70 mm[Hg] Nimo Bueno MD Work Phone: [facility] 05-19-2023 14:01-0500 Heart rate 68 /min Nimo Bueno MD Work Phone: [facility] 05-19-2023 14:01-0500 Respiratory rate 16 /min Nimo Bueno MD Work Phone: [facility] 05-19-2023 14:01-0500 SaO2% (BldA) [Mass fraction] 98 % Nimo Bueno MD Work Phone: [facility] 05-19-2023 14:01-0500 Systolic blood pressure 142 mm[Hg] Nimo Bueno MD Work Phone: [facility] 03-15-2023 10:29-0400 Body mass index (BMI) [Ratio] 26.9 kg/m2 Nimo Bueno MD Work Phone: [facility] 03-15-2023 10:29-0400 Body temperature 97.9 [degF] Nimo Bueno MD Work Phone: [facility] 03-15-2023 10:29-0400 Body weight 54.43 kg Nimo Bueno MD Work Phone: [facility] 03-15-2023 10:29-0400 Diastolic blood pressure 68 mm[Hg] Nimo Bueno MD Work Phone: [facility] 03-15-2023 10:29-0400 Heart rate 62 /min Nimo Bueno MD Work Phone: [facility] 03-15-2023 10:29-0400 Respiratory rate 16 /min Nimo Bueno MD Work Phone: [facility] 03-15-2023 10:29-0400 SaO2% (BldA) [Mass fraction] 97 % Nimo Bueno MD Work Phone: [facility] 03-15-2023 10:29-0400 Systolic blood pressure 160 mm[Hg] Nimo Bueno MD Work Phone: [facility] 03-08-2023 10:08-0400 Body mass index (BMI) [Ratio] 27.06 kg/m2 Ameya Singh MD Work Phone: [facility] 03-08-2023 10:08-0400 Body temperature 97.9 [degF] Ameya Singh MD Work Phone: [facility] 03-08-2023 10:08-0400 Body weight 54.75 kg Ameya Singh MD Work Phone: [facility] 03-08-2023 10:08-0400 Diastolic blood pressure 66 mm[Hg] Ameya Singh MD Work Phone: [facility] 03-08-2023 10:08-0400 Heart rate 70 /min Ameya Singh MD Work Phone: [facility] 03-08-2023 10:08-0400 Respiratory rate 16 /min Ameya Singh MD Work Phone: [facility] 03-08-2023 10:08-0400 SaO2% (BldA) [Mass fraction] 98 % Ameya Singh MD Work Phone: [facility] 03-08-2023 10:08-0400 Systolic blood pressure 152 mm[Hg] Ameya Singh MD Work Phone: [facility] 03-01-2023 09:59-0400 Body mass index (BMI) [Ratio] 27.15 kg/m2 Nimo Bueno MD Work Phone: [facility] 03-01-2023 09:59-0400 Body temperature 97.59 [degF] Nimo Bueno MD Work Phone: [facility] 03-01-2023 09:59-0400 Body weight 54.93 kg Nimo Bueno MD Work Phone: [facility] 03-01-2023 09:59-0400 Diastolic blood pressure 62 mm[Hg] Nimo Bueno MD Work Phone: 0(544)669-060069 [address] 03-01-2023 09:59-0400 Heart rate 69 /min Nimo Bueno MD Work Phone: 2(540)568-126469 [address] 03-01-2023 09:59-0400 Respiratory rate 16 /min Nimo Bueno MD Work Phone: [facility] 03-01-2023 09:59-0400 SaO2% (BldA) [Mass fraction] 99 % Nimo Bueno MD Work Phone: [facility] 03-01-2023 09:59-0400 Systolic blood pressure 118 mm[Hg] Nimo Bueno MD Work Phone: [facility] 02-15-2023 09:35-0400 Body mass index (BMI) [Ratio] 26.72 kg/m2 Nimo Bueno MD Work Phone: [facility] 02-15-2023 09:35-0400 Body temperature 97.81 [degF] Nimo Bueno MD Work Phone: [facility] 02-15-2023 09:35-0400 Body weight 54.07 kg Nimo Bueno MD Work Phone: [facility] 02-15-2023 09:35-0400 Diastolic blood pressure 62 mm[Hg] Nimo Bueno MD Work Phone: [facility] 02-15-2023 09:35-0400 Heart rate 66 /min Nimo Bueno MD Work Phone: 5(160)247-271669 [address] 02-15-2023 09:35-0400 Respiratory rate 16 /min Nimo Bueno MD Work Phone: 4(285)289-086469 [address] 02-15-2023 09:35-0400 SaO2% (BldA) [Mass fraction] 97 % Nimo Bueno MD Work Phone: 4(605)690-391569 [address] 02-15-2023 09:35-0400 Systolic blood pressure 148 mm[Hg] Nimo Bueno MD Work Phone: 6(462)314-873669 [address] 02-08-2023 10:31-0400 Body mass index (BMI) [Ratio] 27.33 kg/m2 Nimo Bueno MD Work Phone: 7(579)582-146369 [address] 02-08-2023 10:31-0400 Body temperature 97.7 [degF] Nimo Bueno MD Work Phone: 3(272)034-155469 [address] 02-08-2023 10:31-0400 Body weight 55.29 kg Nimo Bueno MD Work Phone: 5(260)037-425169 [address] 02-08-2023 10:31-0400 Diastolic blood pressure 72 mm[Hg] Nimo Bueno MD Work Phone: [facility] 02-08-2023 10:31-0400 Heart rate 69 /min Nimo Bueno MD Work Phone: [facility] 02-08-2023 10:31-0400 Respiratory rate 16 /min Nimo Bueno MD Work Phone: [facility] 02-08-2023 10:31-0400 SaO2% (BldA) [Mass fraction] 98 % Nimo Bueno MD Work Phone: [facility] 02-08-2023 10:31-0400 Systolic blood pressure 150 mm[Hg] Nimo Bueno MD Work Phone: [facility] 01-19-2023 10:59-0400 Body mass index (BMI) [Ratio] 26.3 kg/m2 Nimo Bueno MD Work Phone: 2(271)080-492869 [address] 01-19-2023 10:59-0400 Body temperature 98.1 [degF] Nimo Bueno MD Work Phone: 8(911)998-553769 [address] 01-19-2023 10:59-0400 Body weight 53.21 kg Nimo Bueno MD Work Phone: 6(098)466-569748 [place] [address] 01-19-2023 10:59-0400 Diastolic blood pressure 68 mm[Hg] Nimo Bueno MD Work Phone: [facility] 01-19-2023 10:59-0400 Heart rate 65 /min Nimo Bueno MD Work Phone: [facility] 01-19-2023 10:59-0400 Respiratory rate 16 /min Nimo Bueno MD Work Phone: [facility] 01-19-2023 10:59-0400 SaO2% (BldA) [Mass fraction] 98 % Nimo Bueno MD Work Phone: [facility] 01-19-2023 10:59-0400 Systolic blood pressure 154 mm[Hg] Nimo Bueno MD Work Phone: [facility] 01-13-2023 13:14-0400 Body height 142.[address] Monika Venegas Work Phone: [facility] 01-13-2023 13:14-0400 Body mass index (BMI) [Ratio] 26.2 kg/m2 Dr. Monika Venegas Work Phone: [facility] 01-13-2023 13:14-0400 Body weight 53.[address] Monika Venegas Work Phone: [facility] 01-13-2023 13:14-0400 Diastolic blood pressure 67 mm[Hg] Dr. Monika Venegas Work Phone: 1(128)874-361526 [place] [address] 01-13-2023 13:14-0400 Heart rate 70 /min Dr. Monika Venegas Work Phone: 6(316)055-654314 [address] 01-13-2023 13:14-0400 SaO2% (BldA) [Mass fraction] 99 % Dr. Monika Venegas Work Phone: 0(236)383-319814 [address] 01-13-2023 13:14-0400 Systolic blood pressure 130 mm[Hg] Dr. Monika Venegas Work Phone: 3(365)141-241326 [place] [address] 01-01-2023 07:46-0400 Body temperature 97.6 [degF] Dr. Monika Venegas Work Phone: 2(541)752-714126 [place] [address] 01-01-2023 07:46-0400 Diastolic blood pressure 43 mm[Hg] Dr. Monika Venegas Work Phone: [facility] 01-01-2023 07:46-0400 Heart rate 71 /min Dr. Monika Venegas Work Phone: [facility] 01-01-2023 07:46-0400 Respiratory rate 16 /min Dr. Monika Venegas Work Phone: [facility] 01-01-2023 07:46-0400 SaO2% (BldA) [Mass fraction] 97 % Dr. Monika Venegas Work Phone: [facility] 01-01-2023 07:46-0400 Systolic blood pressure 118 mm[Hg] Dr. Monika Venegas Work Phone: [facility] 12-31-2022 20:30-0400 Body mass index (BMI) [Ratio] 27.1 kg/m2 Dr. Monika Venegas Work Phone: [facility] 12-31-2022 05:15-0400 Body weight [address] Monika Venegas Work Phone: [facility] 12-24-2022 15:11-0400 Body weight 55.[address] Monika Venegas Work Phone: [facility] 12-24-2022 13:54-0400 Body temperature 97.7 [degF] Dr. Monika Venegas Work Phone: [facility] 12-24-2022 13:54-0400 Diastolic blood pressure 52 mm[Hg] Dr. Monika Venegas Work Phone: [facility] 12-24-2022 13:54-0400 Heart rate 79 /min Dr. Monika Venegas Work Phone: [facility] 12-24-2022 13:54-0400 Respiratory rate 18 /min Dr. Monika Venegas Work Phone: [facility] 12-24-2022 13:54-0400 SaO2% (BldA) [Mass fraction] 95 % Dr. Monika Venegas Work Phone: [facility] 12-24-2022 13:54-0400 Systolic blood pressure 115 mm[Hg] Dr. Monika Venegas Work Phone: [facility] 12-23-2022 18:15-0400 Body mass index (BMI) [Ratio] 27.4 kg/m2 Dr. Monika Venegas Work Phone: [facility] 12-23-2022 14:39-0400 Body mass index (BMI) [Ratio] 26.3 kg/m2 Dr. Monika Venegas Work Phone: [facility] 12-23-2022 07:32-0400 Body temperature 97.5 [degF] Dr. Monika Venegas Work Phone: [facility] 12-23-2022 07:32-0400 Diastolic blood pressure 46 mm[Hg] Dr. Monika Venegas Work Phone: [facility] 12-23-2022 07:32-0400 Heart rate 53 /min Dr. Monika Venegas Work Phone: [facility] 12-23-2022 07:32-0400 Respiratory rate 18 /min Dr. Monika Venegas Work Phone: [facility] 12-23-2022 07:32-0400 SaO2% (BldA) [Mass fraction] 97 % Dr. Monika Venegas Work Phone: [facility] 12-23-2022 07:32-0400 Systolic blood pressure 101 mm[Hg] Dr. Monika Venegas Work Phone: [facility] 12-22-2022 14:14-0400 Body height 144.[address] Monika Venegas Work Phone: [facility] 12-22-2022 14:14-0400 Body weight 55.[address] Monika Venegas Work Phone: [facility] 10-09-2022 12:16-0400 Body height 143.5 cm Shaye Weston PRINCIPAL SCIENTIST-DRY CLEANER Work Phone: [facility] 10-09-2022 12:16-0400 Diastolic blood pressure 61 mm[Hg] Shaye Weston PRINCIPAL SCIENTIST-DRY CLEANER Work Phone: [facility] 10-09-2022 12:16-0400 Heart rate 63 /min Shaye Weston PRINCIPAL SCIENTIST-DRY CLEANER Work Phone: [facility] 10-09-2022 12:16-0400 Systolic blood pressure 190 mm[Hg] Shaye Weston PRINCIPAL SCIENTIST-DRY CLEANER Work Phone: [facility] 10-08-2022 11:24-0400 Body height 142.2 cm Qian Randle MD Work Phone: [facility] 10-08-2022 11:24-0400 Body mass index (BMI) [Ratio] 27.31 kg/m2 Qian Randle MD Work Phone: 8(595)335-326947 [place] [address] 10-08-2022 11:24-0400 Body temperature 98.4 [degF] Qian Randle MD Work Phone: 7(801)408-969685 [address] 10-08-2022 11:24-0400 Body weight 55.25 kg Qian Randle MD Work Phone: 6(054)022-083085 [address] 10-08-2022 11:24-0400 Diastolic blood pressure 80 mm[Hg] Qian Randle MD Work Phone: 5(789)150-398466 [place] [address] 10-08-2022 11:24-0400 Heart rate 55 /min Qian Randle MD Work Phone: 1(159)274-366866 [place] [address] 10-08-2022 11:24-0400 Respiratory rate 16 /min Qian Randle MD Work Phone: 2(175)561-434747 [place] [address] 10-08-2022 11:24-0400 SaO2% (BldA) [Mass fraction] 99 % Qian Randle MD Work Phone: 1(175)609-650747 [place] [address] 10-08-2022 11:24-0400 Systolic blood pressure 128 mm[Hg] Qian Randle MD Work Phone: 3(751)741-668985 [address] 09-30-2022 11:21-0400 Diastolic blood pressure 72 mm[Hg] Ernie Kincaid MD Work Phone: [facility] Comment on above: manual providers aware 09-30-2022 11:21-0400 Systolic blood pressure 196 mm[Hg] Ernie Kincaid MD Work Phone: [facility] Comment on above: manual providers aware 09-30-2022 11:17-0400 Body height 142.2 cm Ernie Kincaid MD Work Phone: [facility] 09-30-2022 11:17-0400 Body mass index (BMI) [Ratio] 26.97 kg/m2 Ernie Kincaid MD Work Phone: [facility] 09-30-2022 11:17-0400 Body temperature 99.39 [degF] Ernie Kincaid MD Work Phone: [facility] 09-30-2022 11:17-0400 Body weight 54.57 kg Ernie Kincaid MD Work Phone: [facility] 09-30-2022 11:17-0400 Heart rate 62 /min Ernie Kincaid MD Work Phone: [facility] 09-30-2022 11:17-0400 Respiratory rate 16 /min Ernie Kincaid MD Work Phone: [facility] 09-30-2022 11:17-0400 SaO2% (BldA) [Mass fraction] 96 % Ernie Kincaid MD Work Phone: [facility] 09-15-2022 13:37-0400 Body height 142.[address] Monika Venegas Work Phone: [facility] 09-15-2022 13:37-0400 Body mass index (BMI) [Ratio] 27.3 kg/m2 Dr. Monika Venegas Work Phone: [facility] 09-15-2022 13:37-0400 Body temperature 97.4 [degF] Dr. Monika Venegas Work Phone: [facility] 09-15-2022 13:37-0400 Body weight 55.[address] Monika Venegas Work Phone: [facility] 09-15-2022 13:37-0400 Diastolic blood pressure 66 mm[Hg] Dr. Monika Venegas Work Phone: [facility] 09-15-2022 13:37-0400 Heart rate 53 /min Dr. Monika Venegas Work Phone: [facility] 09-15-2022 13:37-0400 Respiratory rate 17 /min Dr. Monika Venegas Work Phone: [facility] 09-15-2022 13:37-0400 SaO2% (BldA) [Mass fraction] 99 % Dr. Monika Venegas Work Phone: [facility] 09-15-2022 13:37-0400 Systolic blood pressure 177 mm[Hg] Dr. Monika Venegas Work Phone: [facility] Encounters Encounter Date Encounter Type Care Provider Facility Start: 03-27-2025 ambulatory Corey Kiran Facility:[facility] Start: 03-13-2025 End: 03-13-2025 Jagdish MARY -[facility] Work Phone: Start: 03-13-2025 End: 03-13-[address] Monika Venegas MD Work Phone: -[facility] Start: 02-26-2025 End: 02-26-[address] Monika Venegas MD Work Phone: -[facility] Start: 02-26-2025 End: 02-26-2025 Dr. Gagan Schulte MD -[facility] Work Phone: Start: 02-26-2025 End: 02-26-2025 Dr. Odilon Melchor MD -[facility] Work Phone: Start: 02-26-2025 End: 02-26-[address] Monika Venegas MD Work Phone: -[facility] Start: 02-26-2025 End: 02-26-2025 ambulatory Gagan Schulte Facility:[facility] Start: 01-31-2025 End: 01-31-2025 Alex MCKENZIE -[facility] Work Phone: Start: 01-31-2025 End: 01-31-[address] Monika Venegas MD Work Phone: -[facility] Start: 01-18-2025 End: 01-18-2025 Alex MCKENZIE -[facility] Work Phone: Start: 01-18-2025 End: 01-18-[address] Monika Venegas MD Work Phone: -[facility] Start: 01-17-2025 End: 01-17-[address] Monika Venegas MD Work Phone: -Pulmonary Services/Neurology Start: 01-17-2025 End: 01-17-2025 Dr. Odilon Melchor MD -Pulmonary Services/Neurology Work Phone: Start: 01-17-2025 End: 01-17-2025 ambulatory Odilon Melchor Facility:[facility] Start: 01-14-2025 ambulatory Celeste KAISER Fa cility:[facility] Start: 01-14-2025 Celeste Pruitt Kadie Solomon Start: 01-07-2025 ambulatory Monika Venegas Facility: [facility] Start: 01-07-2025 Celeste Solomon Start: 12-31-2024 ambulatory Celeste KAISER Fa cility:[facility] Start: 12-31-2024 Celeste Solomon Start: 12-25-2024 End: 12-25-[address] Monika Venegas MD Work Phone: -[facility] Start: 12-25-2024 End: 12-25-2024 Cyndie Jacome [facility] -[facility] Work Phone: Start: 12-24-2024 ambulatory Monika Venegas Facility: [facility] Start: 12-24-2024 Celeste Solomon Start: 12-20-2024 End: 12-20-[address] Monika Venegas MD Work Phone: [facility] Start: 12-20-2024 End: 12-20-2024 Charles Watkins PA -[facility] Work Phone: Start: 12-20-2024 End: 12-20-2024 Dr. Odilon Melchor MD -[facility] Work Phone: Start: 12-20-2024 End: 12-20-[address] Monika Venegas MD Work Phone: -[facility] Start: 12-20-2024 End: 12-20-2024 ambulatory Odilon Melchor Facility:[facility] Start: 12-17-2024 [facility] Start: 12-17-2024 Celeste Jacobo MD [facility] Start: 12-13-2024 ambulatory MONIKA VENEGAS Facility: [facility] Start: 12-11-2024 End: 12-11-[address] Rock Conn MD -[facility] Work Phone: Start: 12-11-2024 End: 12-11-2024 Dr. Rock Conn MD -[facility] Work Phone: Start: 12-11-2024 End: 12-11-[address] Monika Venegas MD Work Phone: [facility] Start: 12-11-2024 End: 12-11-[address] Monika Venegas MD Work Phone: -[facility] Start: 12-11-2024 End: 12-11-2024 Dr. Celeste Jacobo MD -[facility] Work Phone: Start: 12-10-2024 End: 12-10-[address] Monika Venegas MD Work Phone: [facility] Start: 12-10-2024 End: 12-10-2024 Cyndie MARY -[facility] Work Phone: Start: 12-10-2024 ambulatory Celeste KAISER Fa cility:[facility] Start: 12-10-2024 Registered Referred Celeste Jacobo MD -[facility] Start: 12-10-2024 Celeste Jacobo MD - [facility] Start: 12-06-2024 Non-patient / Non-visit Dr. Alix Hudson [facility] Work Phone: Start: 12-06-2024 Dr. Alix Hudson [facility] Work Phone: Start: 12-05-2024 ambulatory Darnell Lopez ty:[facility] Start: 12-05-2024 End: 12-06-2024 Evaluation and management of inpatient Dr. Alix Hudson DO [facility] Work Phone: Start: 12-05-2024 End: 12-06-2024 Dr. Alix Hudson DO [facility] Surgical 3 Work Phone: Start: 12-05-2024 Non-patient / Non-visit Dr. Alix [facility] Work Phone: Start: 12-05-2024 Dr. Alix Hudson [facility] Work Phone: Start: 12-04-2024 Non-patient / Non-visit Dr. Alix [facility] Work Phone: Start: 12-04-2024 Dr. Alix Hudson [facility] Work Phone: Start: 12-03-2024 ambulatory Darnell Lopez ty:[facility] Start: 12-03-2024 Non-patient / Non-visit Dr. Haydee [facility] Work Phone: Start: 12-03-2024 Dr. Darnell Prasad [facility] Work Phone: Start: 12-03-2024 Evaluation and manag ement of inpatient Dr. Darnell Gonzalez DO [facility] 3 Work Phone: Start: 12-03-[address] Monika Venegas MD Work Phone: -[facility] 3 Start: 11-27-2024 Non-patient / Non-visit Dr. Morro Arias [facility] Work Phone: Start: 11-27-2024 Dr. Jo-Ann Arias [facility] Work Phone: Start: 11-26-2024 Non-patient / Non-visit Dr. Morro Arias [facility] Work Phone: Start: 11-26-2024 Dr. Jo-Ann Arias [facility] Work Phone: Start: 11-22-2024 Non-patient / Non-visit Dr. Morro Arais [facility] Work Phone: Start: 11-22-2024 Dr. Jo-Ann Arias [facility] Work Phone: Start: 2024 Non-patient / Non-visit Dr. Morro Arias [facility] Work Phone: Start: 2024 Dr. Jo-Ann Arias [facility] Work Phone: Start: 11-19-2024 Non-patient / Non-visit Dr. Morro Ari[facility] Work Phone: Start: 11-19-2024 Dr. Jo-Ann Arias [facility] Work Phone: Start: 11-16-2024 Non-patient / Non-visit Dr. Morro Ari[facility] Work Phone: Start: 11-16-2024 Dr. Jo-Ann Arias [facility] Work Phone: Start: 11-15-2024 Non-patient / Non-visit Dr. Morro Arias [facility] Work Phone: Start: 11-15-2024 Dr. Jo-Ann Arias [facility] Work Phone: Start: 11-13-2024 Non-patient / Non-visit Dr. Morro Arias [facility] Work Phone: Start: 11-13-2024 Dr. Jo-Ann Arias [facility] Work Phone: Start: 11-12-2024 ambulatory Nora Hugo Facility:[facility] Start: 11-12-2024 End: 11-29-2024 Evaluation and management of inpatient Dr. Jo-Ann Arias DO -Rehab Unit Work Phone: Start: 11-12-2024 End: 11-29-2024 Dr. Jo-Ann Arias DO -Rehab Unit Work Phone: Start: 11-07-2024 End: 11-12-2024 Evaluation and management of inpatient Ignacio De La Garza MD, PhD Work Phone: [id number] Comment on above: Epidural hematoma Start: 11-07-2024 ambulatory Monika Venegas Facility: [facility] Start: 11-07-2024 End: 11-07-2024 Dr. Dallas Anand MD -Emergency Departmen t Work Phone: Start: 11-07-2024 End: 11-07-2024 Emergency department patient visit Dr. Monika Venegas MD Work Phone: -Emergency Department Work Phone: Start: 09-27-2024 End: 09-27-2024 Dr. Hayden Sadler DO -Emergency Departmen t Work Phone: Start: 09-27-2024 End: 09-27-2024 Emergency department patient visit Dr. Monika Venegas MD Work Phone: -Emergency Department Work Phone: Start: 07-24-2024 End: 07-24-[address] Nati Olvera Work Phone: Start: 07-24-2024 End: 07-24-2024 ambulatory Monika S Jolliff Facility:[facility] Start: 07-11-2024 End: 07-11-2024 Office outpatient visit 25 minutes iNmo Bueno MD Work Phone: Department of Radiation Oncology at [facility] Comment on above: Cancer of cerebral m eninges (Primary Dx); Skin change; Alopecia; S/P radiation therapy Start: 07-11-2024 ambulatory NIMO BUENO Facilit y:[facility] Start: 07-11-2024 End: 07-11-2024 Subsequent hospital visit by physician Kristine Blue PRINCIPAL SCIENTIST-DRY CLEANER Work Phone: Imaging [facility] Comment on above: Arrived Start: 07-11-2024 ambulatory KRISTINE BLUE Facility: [facility] Start: 06-19-2024 End: 06-19-[address] Nati Olvera, Phy Office 3rd Flr Start: 06-19-2024 End: 06-19-2024 ambulatory Monika S Jolliff Facility:[facility] Start: 04-17-2024 End: 04-17-2024 ambulatory Monika S Jolliff Facility:[facility] Start: 03-14-2024 End: 03-14-2024 Office outpatient visit 25 minutes Nimo Bueno MD Work Phone: Department of Radiation Oncology at [facility] Comment on above: Cancer of cerebral m eninges (Primary Dx) Start: 03-14-2024 ambulatory MONIKA S JOLLIFF Facility: [facility] Start: 03-14-2024 End: 03-14-2024 Subsequent hospital visit by physician Nimo Bueno MD Work Phone: Imaging at [facility] Comment on above: Arrived Start: 03-14-2024 ambulatory MONIKA S JOLLIFF Facility: [facility] Start: 03-14-2024 End: 03-14-2024 Subsequent hospital visit by physician Nimo Bueno MD Work Phone: [facility] Comment on above: Arrived Start: 11-29-2023 End: 11-29-2023 Office outpatient visit 25 minutes Nimo Bueno MD Work Phone: Department of Radiation Oncology at [facility] Comment on above: Cancer of cerebral m eninges (Primary Dx); Neuroendocrine cancer Start: 11-29-2023 End: 11-29-2023 Subsequent hospital visit by physician Nimo Bueno MD Work Phone: Imaging at [facility] Comment on above: Arrived Start: 08-18-2023 End: 08-18-2023 Subsequent hospital visit by physician Kristine ABREU Work Phone: Imaging at [facility] Comment on above: Arrived Start: 07-22-[address] Monika hameed Work Phone: [facility]-Physical Therapy Work Phone: Start: 07-19-2023 End: 07-19-[address] Monika Venegas Work Phone: [facility] Work Phone: Start: 07-19-2023 End: 07-19-[address] Monika Venegas Work Phone: [facility] Work Phone: Start: 05-19-2023 End: 05-19-2023 Office outpatient visit 25 minutes Nimo Bueno MD Work Phone: Department of Radiation Oncology at [facility] Comment on above: Cancer of cerebral m eninges (Primary Dx) Start: 03-16-2023 End: 03-16-2023 Subsequent hospital visit by physician Tonia John Linac 1 Department of Radiation Oncology at [facility] Comment on above: Arrived Start: 03-15-2023 End: 03-28-2023 Patient encounter procedure Nimo Bueno MD Work Phone: Department of Radiation Oncology at [facility] Comment on above: Cancer of cerebral m eninges (Primary Dx) Start: 03-14-2023 End: 03-14-2023 Subsequent hospital visit by physician Tonia John Linac 1 Department of Radiation Oncology at [facility] Comment on above: Arrived Start: 03-10-2023 End: 03-10-2023 Subsequent hospital visit by physician Tonia John Linac 1 Department of Radiation Oncology at [facility] Comment on above: Arrived Start: 03-08-2023 End: 03-08-2023 Patient encounter procedure Nimo Bueno MD Work Phone: Department of Radiation Oncology at [facility] Comment on above: Neuroendocrine cance r (Primary Dx) Start: 03-04-2023 End: 03-04-2023 Subsequent hospital visit by physician Tonia John Linac 1 Department of Radiation Oncology at [facility] Comment on above: Arrived Start: 03-03-2023 End: 03-03-2023 Subsequent hospital visit by physician Tonia John Linac 1 Department of Radiation Oncology at [facility] Comment on above: Arrived Start: 03-02-2023 End: 03-02-2023 Subsequent hospital visit by physician Tonia John Linac 1 Department of Radiation Oncology at [facility] Comment on above: Arrived Start: 03-01-2023 End: 03-29-2023 Patient encounter procedure Nimo Bueno MD Work Phone: Department of Radiation Oncology at [facility] Comment on above: Cancer of cerebral m eninges (Primary Dx) Start: 03-01-2023 End: 03-01-2023 Subsequent [facility] John Linac 1 Department of Radiation Oncology at [facility] Comment on above: Arrived Start: 02-28-2023 End: 02-28-2023 Subsequent hospital visit [facility] John Linac 1 Department of Radiation Oncology at [facility] Comment on above: Arrived Start: 02-24-2023 End: 02-24-2023 Subsequent hospital visit by physician Tonia John Linac 1 Department of Radiation Oncology at [facility] Comment on above: Arrived Start: 02-23-2023 End: 02-23-2023 Subsequent hospital visit by physician Tonia John Linac 1 Department of Radiation Oncology at [facility] Comment on above: Arrived Start: 02-18-2023 End: 02-18-2023 Subsequent hospital visit by physician Tonia John Linac 1 Department of Radiation Oncology at [facility] Comment on above: Arrived Start: 02-17-2023 End: 02-17-2023 Subsequent hospital visit by physician Tonia John Linac 1 Department of Radiation Oncology at [facility] Comment on above: Arrived Start: 02-16-2023 End: 02-16-2023 Subsequent hospital visit by physician Tonia John Linac 1 Department of Radiation Oncology at [facility] Comment on above: Arrived Start: 02-15-2023 End: 03-16-2023 Patient encounter procedure Nimo Bueno MD Work Phone: Department of Radiation Oncology at [facility] Comment on above: Cancer of cerebral m eninges (Primary Dx) Start: 02-15-2023 End: 02-15-2023 Subsequent hospital visit by physician Tonia John Linac 1 Department of Radiation Oncology at [facility] Comment on above: Arrived Start: 02-14-2023 End: 02-14-2023 Subsequent hospital visit [facility] John Linac 1 Department of Radiation Oncology at [facility] Comment on above: Arrived Start: 02-11-2023 End: 02-11-2023 Subsequent hospital visit by physician Tonia John Linac 1 Department of Radiation Oncology at [facility] Comment on above: Arrived Start: 02-10-2023 End: 02-10-2023 Subsequent hospital visit by physician Tonia John Linac 1 Department of Radiation Oncology at [facility] Comment on above: Arrived Start: 02-09-2023 End: 02-09-2023 Subsequent hospital visit by [facility] John Linac 1 Department of Radiation Oncology at [facility] Comment on above: Arrived Start: 02-08-2023 End: 03-08-2023 Patient encounter procedure Nimo Bueno MD Work Phone: Department of Radiation Oncology at [facility] Comment on above: Cancer of cerebral m eninges (Primary Dx) Start: 02-08-2023 End: 02-08-2023 Subsequent hospital visit by physician Margret John Linac 1 Department of Radiation Oncology at [facility] Comment on above: Arrived Start: 02-04-2023 End: 02-04-2023 Subsequent hospital visit by physician Tonia John Linac 1 Department of Radiation Oncology at [facility] Comment on above: Arrived Start: 02-03-2023 End: 02-03-2023 Subsequent hospital visit by physician Tonia John Linac 1 Department of Radiation Oncology at [facility] Comment on above: Arrived Start: 02-02-2023 End: 02-02-2023 Subsequent hospital visit by physician Tonia John Linac 1 Department of Radiation Oncology at [facility] Comment on above: Arrived Start: 02-01-2023 End: 02-01-2023 Subsequent hospital visit by physician Nimo Bueno MD Work Phone: Department of Radiation Oncology at [facility] Comment on above: Arrived Start: 01-19-2023 End: 01-19-2023 Clinical Support Encounter Nimo Bueno MD Work Phone: Department of Radiation Oncology Comment on above: Neuroendocrine cance r (Primary Dx) Start: 01-19-2023 End: 01-19-2023 Office outpatient new 60 minutes Nimo Bueno MD Work Phone: Department of Radiation Oncology Comment on above: Cancer of cerebral m eninges (Primary Dx); Neuroendocrine cancer Start: 01-19-2023 End: 01-19-2023 Subsequent hospital visit by physician Nimo Bueno MD Work Phone: Department of Radiology Comment on above: Arrived Start: 01-18-2023 End: 01-18-[address] Monika Venegas Work Phone: [facility] Work Phone: Start: 01-18-2023 End: 01-18-[address] Monika Venegas Work Phone: [facility] Start: 01-13-2023 End: 01-13-[address] Monika Venegas Work Phone: [facility] Work Phone: Start: 01-12-2023 End: 01-12-2023 Subsequent hospital visit by physician Nimo Bueno MD Work Phone: [facility] Comment on above: Arrived Start: 01-12-2023 End: 01-12-2023 Subsequent hospital visit by physician Nimo Bueno MD Work Phone: Department of Radiology Comment on above: Arrived Start: 12-29-2022 Non-patient / Non-visit Dr. Joni Venegas Work Phone: [facility] Work Phone: Start: 12-27-2022 Non-patient / Non-visit Dr. Joni Venegas Work Phone: [facility] Work Phone: Start: 12-24-2022 Non-patient / Non-visit Dr. Joni Venegas Work Phone: [facility] Work Phone: Start: 12-23-2022 End: 12-24-2022 Evaluation and management of inpatient Dr. Monika Venegas Work Phone: [facility]-Progressive Care Unit Work Phone: Start: 12-23-2022 End: 12-23-2022 Non-patient / Non-visit Dr. Monika Venegas Work Phone: [facility] Work Phone: Start: 12-23-2022 Non-patient / Non-visit Dr. Joni Venegas Work Phone: [facility] Work Phone: Start: 12-21-2022 Non-patient / Non-visit Dr. Joni Venegas Work Phone: [facility] Work Phone: Start: 12-20-2022 Non-patient / Non-visit Dr. Joni Venegas Work Phone: [facility] Work Phone: Start: 12-17-2022 Non-patient / Non-visit Dr. Joni Venegas Work Phone: [facility] Work Phone: Start: 12-16-2022 Non-patient / Non-visit Dr. Joni Venegas Work Phone: [facility] Work Phone: Start: 12-13-2022 Non-patient / Non-visit Dr. Joni Venegas Work Phone: [facility] Work Phone: Start: 12-10-2022 Non-patient / Non-visit Dr. Joni Venegas Work Phone: [facility] Work Phone: Start: 12-08-2022 Non-patient / Non-visit Dr. Joni Venegas Work Phone: [facility] Work Phone: Start: 12-07-2022 Non-patient / Non-visit Dr. Joni Venegas Work Phone: [facility] Work Phone: Start: 12-06-2022 End: 01-01-2023 Evaluation and management of inpatient Dr. Monika Venegas Work Phone: [facility]-Rehab Unit Work Phone: Start: 11-09-2022 End: 11-09-[address] Monika Venegas Work Phone: [facility] Work Phone: Start: 11-09-2022 End: 11-09-[address] Monika Venegas Work Phone: [facility]-Laboratory Start: 10-29-2022 End: 10-29-[address] Monika Venegas Work Phone: [facility] Work Phone: Start: 10-29-2022 End: 10-29-[address] Monika Venegas Work Phone: [facility]-Cat Scan, [facility] Start: 10-09-2022 End: 10-09-2022 Subsequent hospital visit by physician Shaye Weston PRINCIPAL SCIENTIST-DRY CLEANER Work Phone: Imaging Outpatient Care [facility] Comment on above: Arrived Start: 10-08-2022 End: 10-08-2022 Subsequent hospital visit by physician Qian Randle MD Work Phone: Imaging [facility] Comment on above: Arrived Start: 10-08-2022 End: 10-08-2022 Office consultation new/estab patient 60 min Qian Randle MD Work Phone: Pre-Procedure Evaluation and Assessment [facility] Outpatient [facility] Comment on above: Preop exam for inter nal medicine (Primary Dx); Skull mass; Essential hypertension; Hyperlipidemia, unspecified hyperlipidemia type Start: 10-08-2022 End: 10-08-2022 Patient encounter status Qian Randle MD Work Phone: Imaging [facility] Start: 10-04-2022 End: 10-04-2022 Patient encounter procedure [facility] Outside Imaging Ct Scan So Outside Imaging Second Opinion Start: 09-30-2022 End: 09-30-2022 Subsequent hospital visit by physician Joanne Mitchell PRINCIPAL SCIENTIST-DRY CLEANER Work Phone: Outside Imaging Start: 09-30-2022 End: 09-30-[address] Monika Venegas Work Phone: [facility] Work Phone: Start: 09-30-2022 End: 09-30-[address] Monika Venegas Work Phone: [facility] Start: 09-30-2022 End: 09-30-2022 Office outpatient new 45 minutes Ernie Kincaid MD Work Phone: Division of Neuro Surgery at [facility] Comment on above: Skull mass (Primary Dx) Start: 09-28-2022 End: 09-28-[address] Monika Venegas Work Phone: [facility] Start: 09-23-2022 End: 09-23-[address] Monika Venegas Work Phone: [facility] Work Phone: Start: 09-23-2022 End: 09-23-[address] Monika Venegas Work Phone: [facility] Start: 09-21-2022 End: 09-21-[address] Monika Venegas Work Phone: [facility] Work Phone: Start: 09-21-2022 End: 09-21-[address] Monika Venegas Work Phone: [facility] Start: 09-15-2022 End: 09-15-[address] Monika Venegas Work Phone: [facility] Start: 05-14-2022 End: 05-14-2022 ambulatory [facility] Work Phone: Start: 05-14-2022 End: 05-14-2022 Patient encounter procedure [facility]-Outpatient Breast Imaging Start: 03-23-2022 End: 03-23-2022 ambulatory [facility] Work Phone: Start: 03-23-2022 End: 03-23-2022 Patient encounter procedure [facility] Procedures Date Procedure Procedure Detail Performing Clinician Start: 02-26-2025 Osmolality measureme nt, serum Dr. Monika Venegas MD Work Phone: Start: 01-14-2025 Blood count smear mc rscp w/mnl difrntl wbc count Dr. Monika Venegas MD Work Phone: Start: 01-14-2025 Mean corpuscular hemoglobin concentration determination Dr. Monika Venegas MD Work Phone: Start: 01-14-[address] Joni Venegas MD Work Phone: Start: 01-14-2025 Nucleated red blood cell count procedure Dr. Monika Venegas MD Work Phone: Start: 01-14-2025 Platelet mean volume determination Dr. Monika Venegas MD Work Phone: Start: 01-07-2025 Blood count smear mc rscp w/mnl difrntl wbc count Dr. Monika Venegas MD Work Phone: Start: 01-07-2025 Mean corpuscular hemoglobin concentration determination Dr. Monika Venegas MD Work Phone: Start: 01-07-[address] Joni Venegas MD Work Phone: Start: 01-07-2025 Nucleated red blood cell count procedure Dr. Monika Venegas MD Work Phone: Start: 01-07-2025 Platelet mean volume determination Dr. Monika Venegas MD Work Phone: Start: 12-31-2024 Blood count smear mc rscp w/mnl difrntl wbc count Dr. Monika Venegas MD Work Phone: Start: 12-31-2024 Mean corpuscular hemoglobin concentration determination Dr. Monika Venegas MD Work Phone: Start: 12-31-[address] Joni Venegas MD Work Phone: Start: 12-31-2024 Nucleated red blood cell count procedure Dr. Monika Venegas MD Work Phone: Start: 12-31-2024 Platelet mean volume determination Dr. Monika Venegas MD Work Phone: Start: 12-24-2024 Blood count smear mc rscp w/mnl difrntl wbc count Dr. Monika Venegas MD Work Phone: Start: 12-24-2024 Mean corpuscular hemoglobin concentration determination Dr. Monika Venegas MD Work Phone: Start: 12-24-[address] Joni Venegas MD Work Phone: Start: 12-24-2024 Nucleated red blood cell count procedure Dr. Monika Venegas MD Work Phone: Start: 12-24-2024 Platelet mean volume determination Dr. Monika Venegas MD Work Phone: Start: 12-20-2024 Folic acid measureme nt, RBC Dr. Monika Venegas MD Work Phone: Start: 12-20-2024 Mean corpuscular hemoglobin concentration determination Dr. Monika Venegas MD Work Phone: Start: 12-20-2024 Platelet mean volume determination Dr. Monika Venegas MD Work Phone: Start: 12-20-2024 Urine lambda light c viviana measurement Dr. Monika Venegas MD Work Phone: Start: 12-17-2024 Blood count smear mc rscp w/mnl difrntl wbc count Dr. Monika Venegas MD Work Phone: Start: 12-17-2024 Mean corpuscular hemoglobin concentration determination Dr. Monika Venegas MD Work Phone: Start: 12-17-[address] Joni Venegas MD Work Phone: Start: 12-17-2024 Nucleated red blood cell count procedure Dr. Monika Venegas MD Work Phone: Start: 12-17-2024 Platelet mean volume determination Dr. Monika Venegas MD Work Phone: Start: 12-10-2024 Blood count smear mc rscp w/mnl difrntl wbc count Dr. Monika Venegas MD Work Phone: Start: 12-10-2024 Mean corpuscular hemoglobin concentration determination Dr. Monika Venegas MD Work Phone: Start: 12-10-[address] Joni Venegas MD Work Phone: Start: 12-10-2024 Nucleated red blood cell count procedure Dr. Monika Venegas MD Work Phone: Start: 12-10-2024 Platelet mean volume determination Dr. Monika Venegas MD Work Phone: Start: 12-10-2024 Vitamin D, 25-hydrox y measurement Dr. Monika Venegas MD Work Phone: Comment on above: Vitamin D StatusDefi ciency: <20 ng/mL (50nmol/L)Insufficiency: 20-30 ng/mL (50-75 nmol/L)Sufficiency: 30-100 ng/mL (75-250 nmol/L)Toxicity: >100 ng/mL (>250 nmol/L) Start: 12-06-[address] Monika Venegas MD Work Phone: Start: 12-05-2024 Mean corpuscular hemoglobin concentration determination Dr. Monika Venegas MD Work Phone: Start: 12-05-2024 Platelet mean volume determination Dr. Monika Venegas MD Work Phone: Start: 12-04-2024 Blood count smear rscp w/mnl difrntl wbc count Dr. Monika Venegas MD Work Phone: Start: 12-04-[address] Joni Venegas MD Work Phone: Start: 12-04-2024 Nucleated red blood cell count procedure Dr. Monika Venegas MD Work Phone: Start: 12-04-2024 Serum inorganic phos phate measurement Dr. Monika Venegas MD Work Phone: Start: 12-04-2024 Total cholesterol:HD L ratio measurement Dr. Monika Venegas MD Work Phone: Start: 12-04-[address] Monika Venegas MD Work Phone: Start: 12-03-2024 Urine microscopy: re d cells Dr. Monika Venegas MD Work Phone: Start: 12-03-2024 Urnls dip stick/tabl et reagent auto microscopy Dr. Monika Venegas MD Work Phone: Start: 12-03-[address] Monika Venegas MD Work Phone: Start: 12-03-2024 Triacylglycerol lipa se measurement Dr. Monika Venegas MD Work Phone: Start: 12-03-[address] Monika hameed MD Work Phone: Start: 11-29-[address] Monika Venegas MD Work Phone: Start: 11-28-2024 Osmolality measureme nt, serum Dr. Monika Venegas MD Work Phone: Start: 11-28-2024 Serum inorganic phos phate measurement Dr. Monika Venegas MD Work Phone: Start: 11-27-2024 Mean corpuscular hemoglobin concentration determination Dr. Monika Venegas MD Work Phone: Start: 11-27-2024 Platelet mean volume determination Dr. Monika Venegas MD Work Phone: Start: 11-25-[address] Monika hameed MD Work Phone: Start: 11-24-2024 Urine microscopy: re d cells Dr. Monika Venegas MD Work Phone: Start: 11-24-2024 Urnls dip stick/tabl et reagent auto microscopy Dr. Monika Venegas MD Work Phone: Start: 11-12-2024 Echo tthrc r-t 2d w/wom-mode compl spec&colr d Angel Melendrez MD Work Phone: Start: 11-12-2024 Creatinine blood Jeantahir Dorsey Marko [facility] Work Phone: Start: 11-11-2024 Creatinine blood Jeantahir Dorsey Marko [facility] Work Phone: Start: 11-10-2024 CARDIAC RHYTHM Other Ot her OT Start: 11-10-2024 End: 11-10-2024 Mri brain brain stem w/o w/contrast material Staci Luna MD Work Phone: Start: 11-10-2024 Creatinine blood Jeantahir Dorsey Marko [facility] Work Phone: Start: 11-09-2024 GENERAL PROCEDURE Shasha Ferraro [facility] Work Phone: Start: 11-09-2024 Assay of magnesium Jl Nazario [facility] Work Phone: Start: 11-09-2024 Hepatic function panel Jl Nazario [facility] Work Phone: Start: 11-08-2024 IP CONSULT TO SPEECH THERAPY Jl ROMAN [facility] Work Phone: Start: 11-07-2024 Drug tst prsmv [...] Work Phone: Start: 11-07-2024 Ct head/brain w/o co ntrast material Smiley Bailey MD, MPH Work Phone: Start: 11-07-2024 Radiologic examinati on pelvis 1/2 views Ignacio De La Garza MD, PhD Work Phone: Start: 11-07-2024 Radiologic exam ches t single view Ignacio De La Garza MD, PhD Work Phone: Start: 11-07-2024 Antibody screen NIMO BUENO Comment on above: Performed By: #### M GO, IPB, CHM7, HFP #### [facility] ([facility]) [address] [place] [address] Start: 11-07-2024 ALCOHOL (ETHANOL),BLOOD Ignacio De La Garza MD, PhD Work Phone: Start: 11-07-2024 End: 11-07-2024 Assay of thyroid stimulating hormone tsh Ignacio De La Garza MD, PhD Work Phone: Start: 11-07-2024 Blood typing serologic abo Ignacio De La Garza MD, PhD [...] Phone: Start: 11-07-2024 MINT GREEN TOP TUBE Tra vis P [place]-Toppen MD, PhD Work Phone: Start: 11-07-2024 RAINBOW DRAW Ignacio Chaparro De La Garza MD, PhD Work Phone: Start: 11-07-2024 Blood count smear mc rscp w/mnl difrntl wbc count Dr. Monika Venegas MD Work Phone: Start: 11-07-2024 Calculation of international normalized ratio Dr. Monika Venegas MD Work Phone: Start: 11-07-[address] Monika Venegas MD Work Phone: Start: 11-07-2024 Mean corpuscular hemoglobin concentration determination Dr. oMnika Venegas MD Work Phone: Start: 11-07-[address] Joni Venegas MD Work Phone: Start: 11-07-2024 Nucleated red blood cell count procedure Dr. Monika Venegas MD Work Phone: Start: 11-07-2024 Platelet mean volume determination Dr. Monika Venegas MD Work Phone: Start: 11-07-2024 CT of head without contrast Dr. Monika Venegas MD Work Phone: Start: 09-27-2024 X-ray of chest, PA a nd lateral views Dr. Monika Venegas MD Work Phone: Start: 09-27-2024 Blood count smear mc rscp w/mnl difrntl wbc count Dr. Monika Venegas MD Work Phone: Start: 09-27-2024 Calculation of international normalized ratio Dr. Monika Venegas MD Work Phone: Start: 09-27-[address] Monika Venegas MD Work Phone: Start: 09-27-2024 Mean corpuscular hemoglobin concentration determination Dr. Monika Venegas MD Work Phone: Start: 09-27-2024 Nucleated red blood cell count procedure Dr. Monika Venegas MD Work Phone: Start: 09-27-2024 Platelet mean volume determination Dr. Monika Venegas MD Work Phone: Start: 07-24-2024 Measurement of renal function Dr. Monika Venegas MD Work Phone: Comment on above: GFR Calc Start: 03-14-[address] atten uation skull base mid-thigh Nimo Bueno MD Work Phone: Start: 02-16-2023 RAD [...] MD Work Phone: Start: 10-08-2022 Blood typing serologic abo Qian Randle MD Work Phone: Start: [...] Start: 10-04-2022 Ct thorax w/contrast material Joanne Nadeem Mitchell PRINCIPAL SCIENTIST-[employer] CLEANER Work Phone: Start: 09-30-2022 CT Abdomen and Pelvis V ictoria E Ranogg PRINCIPAL SCIENTIST-[employer] CLEANER Work Phone: Start: 09-30-2022 CT of chest and abdomen Dr. Monika Venegas Work Phone: Start: 09-23-2022 CT of head with contrast Dr. Monika Venegas Work Phone: Start: 05-14-2022 Screening mammography H/O: surgery Dr. Monika Venegas MD Work Phone: H/O: surgery Dr. Odilon peter MD H/O: surgery Dr. Odilon peter MD History of radiation therapy S/P radiation therapy Nimo Bueno MD Work Phone: Plan of Treatment Date Care Activity Detail Author Start: 11-07-2034 Tetanus vaccination TETANUS [facility] Start: 01-31-2025 End: 01-31-2025 Evaluation of diagnostic study results [facility] Start: 01-31-2025 [facility] Start: 12-20-2024 Vitamin B6 measurement [facility] Start: 12-20-2024 Blood ammonia measurement [facility] Start: 12-20-2024 Complete blood count [facility] Start: 12-20-2024 Comprehensive metabo lic 2000 panel - Serum or Plasma [facility] Start: 12-20-2024 Folic acid measureme nt, RBC [facility] Start: 12-20-2024 Magnesium measurement [facility] Start: 12-20-2024 Measurement of substance [facility] Start: 12-20-2024 Thiamine measurement [facility] Start: 12-20-2024 Thyroid stimulating hormone measurement [facility] Start: 12-20-2024 Vitamin B12 measurement [facility] Start: 12-20-2024 Vitamin D, 1,25-dihy droxy measurement [facility] Start: 12-20-2024 [facility] Start: 12-11-2024 End: 12-11-2024 Evaluation of diagnostic study results [facility] Start: 12-10-2024 Measurement of substance [facility] Start: 12-07-2024 Serum inorganic phos phate measurement [facility] Start: 12-06-2024 Patient discharge [facility] Start: 12-05-2024 Admission procedure [facility] Start: 12-05-2024 Referral to crew member [facility] Start: 12-04-2024 Verification routine [facility] Start: 12-03-2024 Following clinical p athway protocol [facility] Start: 12-03-2024 Assessment of risk o f venous thromboembolism [facility] Start: 12-03-2024 Insertion of cathete r into peripheral vein [facility] Start: 12-03-2024 Measuring intake and output [facility] Start: 12-03-2024 Oxygen therapy [facility] Start: 12-03-2024 Providing care accor ding to standard [facility] Start: 12-03-2024 Provision of activit y privileges [facility] Start: 12-03-2024 Referral for physica l therapy [facility] Start: 12-03-2024 Referral to occupati onal therapist [facility] Start: 12-03-2024 Referral to service [facility] Start: 12-03-2024 [facility] Start: 12-03-2024 Thyroid stimulating hormone measurement [facility] Start: 12-03-2024 Verification routine [facility] Start: 12-03-2024 Admission procedure [facility] Start: 12-03-2024 Hospital admission, emergency, from emergency room, medical nature [facility] Start: 12-03-2024 [facility] Start: 12-03-2024 Bacteria identified in Urine by Culture Urine Culture [facility] Start: 12-03-2024 Patient referral to dietitian [facility] Start: 11-29-2024 Consultation for treatment [facility] Start: 11-28-2024 Referral to crew member [facility] Start: 11-28-2024 End: 11-28-2024 Patient encounter procedure 11/28/2024 12:00 PM EDT Office Visit Department of Radiation Oncology at [facility] [address] [place] [phone] Nimo Bueno MD [address] [place] [address] Department of Radiation Oncology at [facility] Start: 11-28-2024 Patient discharge [facility] Start: 11-25-2024 [facility] Start: 11-23-2024 Referral to service [facility] Start: 11-14-2024 [facility] Start: 11-14-2024 End: 11-14-2024 Patient encounter procedure Imaging at [facility] Start: 11-13-2024 Application of intermittent pneumatic compression device [facility] Start: 11-13-2024 Recommendation to co ntinue with treatment [facility] Start: 11-13-2024 Speech therapy assessment [facility] Start: 11-12-2024 Recommendation to co ntinue with treatment [facility] Start: 11-12-2024 Admission procedure [facility] Start: 11-12-2024 Measuring intake and output [facility] Start: 11-12-2024 Patient referral to dietitian [facility] Start: 11-12-2024 Vital signs measurements [facility] Start: 11-12-2024 End: 11-12-2024 [facility] Start: 11-07-2024 [facility] Start: 11-07-2024 Oxygen therapy [facility] Start: 11-07-2024 End: 11-07-2024 [facility] Start: 09-27-2024 [facility] Start: 09-27-2024 [facility] Start: 07-11-2024 End: 07-11-2025 MR Brain W contrast IV [place] Work Phone: Comment on above: 1 Occurrences starti ng 07/11/2024 until 07/11/2024 Expected: 07/11/2024 , Expires: 07/11/2025 Start: 07-11-2024 End: 07-11-2024 Patient encounter procedure Imaging at [facility] Start: 06-14-2024 End: 03-14-2025 MR Brain W contrast IV MRI BRAIN WITH PERFUSION Imaging Routine Cancer of cerebral meninges Expected: 06/14/2024, Expires: 03/14/2025 [facility] Comment on above: Expected: 06/14/2024 , Expires: 03/14/2025 Start: 03-14-2024 End: 03-14-2024 Patient encounter procedure Imaging at [facility] Start: 03-14-2024 End: 03-14-2024 Patient encounter procedure 03/14/2024 9:30 AM EDT Appointment Imaging [facility] [address] [place] [phone] Nimo Bueno MD [address] [place] [address] Imaging [facility] Start: 02-05-2024 Influenza vaccination [facility] Start: 12-07-2023 Potassium [Moles/vol ume] in Serum or Plasma POTASSIUM [facility] Start: 11-29-2023 End: 11-28-2024 MR Brain W contrast IV [facility] Comment on above: 1 Occurrences starti ng 11/29/2023 until 11/29/2023 Expected: 11/29/2023 , Expires: 11/28/2024 Start: 11-29-2023 End: 11-28-2024 PT Skull base to mid-thigh NUC PET NEUROENDOCRINE Imaging Routine Cancer of cerebral meninges Neuroendocrine cancer Expected: 11/29/2023, Expires: 11/28/2024 [facility] Comment on above: Expected: 11/29/2023 , Expires: 11/28/2024 Start: 11-29-2023 End: 11-29-2023 Patient encounter procedure Imaging at [facility] Start: 10-09-2023 Potassium [Moles/vol ume] in Serum or Plasma POTASSIUM [facility] Start: 08-23-2023 End: 08-23-2023 Telemedicine consultation with patient 08/23/2023 5:30 PM EDT Telemedicine Department of Radiation Oncology at [facility] [address] [place] [phone] Nimo Bueno MD [address] [place] [address] Department of Radiation Oncology at [facility] Start: 08-18-2023 End: 05-19-2024 MR Brain W contrast IV [place] Comment on above: Expected: 08/18/2023 , Expires: 05/19/2024 1 Occurrences starti ng 08/18/2023 until 08/18/2023 Start: 08-18-2023 End: 08-18-2023 Patient encounter procedure Imaging at [facility] Start: 05-19-2023 End: 05-19-2023 Patient encounter procedure Department of Radiation Oncology at [facility] Start: 05-19-2023 End: 05-19-2023 Patient encounter procedure Imaging at [facility] Start: 05-14-2023 Screening for malign ant neoplasm of breast MAMMOGRAM SCREENING DISCUSSION [facility] Start: 03-15-2023 End: 03-15-2024 MR Brain W contrast IV MRI BRAIN WITH PERFUSION Imaging Routine Cancer of cerebral meninges Expected: 03/15/2023, Expires: 03/15/2024 [facility] Comment on above: Expected: 03/15/2023 , Expires: 03/15/2024 Start: 03-15-2023 End: 03-15-2023 Patient encounter procedure 03/15/2023 10:00 AM EDT Office Visit Department of Radiation Oncology at [place] [address] [address] [place] [address] Nimo Bueno MD [address] [place], [place] [phone] Department of Radiation Oncology at [facility] Start: 03-08-2023 End: 03-08-2023 Patient encounter procedure Department of Radiation Oncology at [facility] Start: 03-01-2023 End: 03-01-2023 Patient encounter procedure 03/01/2023 10:00 AM EDT Office Visit Department of Radiation Oncology at [place] [address] [address] [place] [phone] Nimo Bueno MD [address] [place] [phone] Department of Radiation Oncology at [facility] Start: 02-22-2023 End: 02-22-2023 Patient encounter procedure 02/22/2023 10:20 AM EDT Office Visit Department of Radiation Oncology at [place] [address] [address] [place] [phone] Nimo Bueno MD [address] [place] [phone] Department of Radiation Oncology at [facility] Start: 02-17-2023 Subsequent hospital visit by physician 02/17/2023 9:09 AM EDT Hospital Encounter Department of Radiation Oncology at [place] [address] [address] Arrived Department of Radiation Oncology at [facility] Comment on above: Arrived Start: 02-15-2023 End: 02-15-2023 Patient encounter procedure 02/15/2023 9:40 AM EDT Office Visit Department of Radiation Oncology at [place] [address] [address] [place] [address] Nimo Bueno MD [address] [place] [address] Department of Radiation Oncology at [facility] Start: 02-08-2023 End: 02-08-2023 Patient encounter procedure 02/08/2023 10:40 AM EDT Office Visit Department of Radiation Oncology at [place] [address] [address] [place] [address] Nimo Bueno MD [address] [place] [phone] Department of Radiation Oncology at [facility] Start: 02-04-2023 Influenza vaccination INFLUENZA VACC INE (#1) [facility] Start: 02-01-2023 End: 02-01-2023 Patient encounter procedure 02/01/2023 1:00 PM EDT Office Visit Department of Radiation Oncology at [place] [address] [address] [place] [address] Nimo Bueno MD [address] [place] [phone] Department of Radiation Oncology at [facility] Start: 01-19-2023 End: 01-19-2023 Patient encounter procedure Department of Radiation Oncology Start: 01-02-2023 Patient discharge [facility] Start: 01-01-2023 [facility] Start: 12-31-2022 [facility] Start: 12-29-2022 End: 12-30-2022 [facility] Start: 12-29-2022 [facility] Start: 12-27-2022 Referral to service [facility] Start: 12-24-2022 Patient discharge [facility] Start: 12-24-2022 Care planning and pr oblem solving actions [facility] Start: 12-24-2022 Chart related administrative procedure [facility] Start: 12-23-2022 End: 12-24-2022 [facility] Start: 12-23-2022 Care planning and pr oblem solving actions [facility] Start: 12-23-2022 Cardiac monitoring [facility] Start: 12-23-2022 Admission procedure [facility] Start: 12-23-2022 Provision of activit y privileges [facility] Start: 12-23-2022 Assessment of risk o f venous thromboembolism [facility] Start: 12-23-2022 Insertion of cathete r into peripheral vein [facility] Start: 12-23-2022 Measuring intake and output [facility] Start: 12-23-2022 Providing care accor ding to standard [facility] Start: 12-23-2022 Referral to asset management lead [facility] Start: 12-23-2022 Referral to occupati onal therapist [facility] Start: 12-23-2022 Referral to service [facility] Start: 12-23-2022 Following clinical p athway protocol [facility] Start: 12-23-2022 Patient discharge [facility] Start: 12-23-2022 Patient referral to dietitian [facility] Start: 12-22-2022 [facility] Start: 12-16-2022 [facility] Start: 12-10-2022 Following clinical p athway protocol [facility] Start: 12-09-2022 Application of elast ic bandage [facility] Start: 12-06-2022 Application of intermittent pneumatic compression device [facility] Start: 12-06-2022 [facility] Start: 12-06-2022 Recommendation to co ntinue with treatment [facility] Start: 12-06-2022 Urinary bladder training [facility] Start: 12-06-2022 Wound care [facility] Start: 12-06-2022 Referral to service [facility] Start: 12-06-2022 Admission procedure [facility] Start: 12-06-2022 Patient referral to dietitian [facility] Start: 12-06-2022 Referral to occupati onal therapist [facility] Start: 12-06-2022 Vital signs measurements [facility] Start: 12-06-2022 [facility] Start: 12-06-2022 Speech therapy assessment [facility] Start: 10-28-2022 End: 10-28-2022 Patient encounter procedure 10/28/2022 Office Visit Neurosurgery Neuro Oncology Shaye Weston, PRINCIPAL SCIENTIST-DRY CLEANER [address] [place] [address] Division of Neuro Surgery at [facility] Start: 10-13-2022 End: 10-13-2022 Craniectomy w/excision [...] 10/09/2022 Hospital Encounter Magnetic Resonance Imaging Shaye Weston Staci PRINCIPAL SCIENTIST-DRY CLEANER [address] [place] [address] Imaging Outpatient Care [facility] Start: 10-07-2022 End: 10-07-2022 Telemedicine consultation with patient 10/07/2022 Telemedicine Neurosurgery Neuro Oncology Ernie Kincaid MD [address] [place] [address] Division of Neuro Surgery at [facility] Start: 09-30-2022 End: 10-01-2023 CT Abdomen and Pelvis W contrast IV CT ABDOMEN/PELVIS WITH CONTRAST Imaging STAT Skull mass Expected: 09/30/2022, Expires: 10/01/[address] [facility] Comment on above: Expected: 09/30/2022 , Expires: 10/01/2023 Start: 09-30-2022 End: 10-01-2023 CT Chest W contrast IV CT CHEST WITH CONTRAST Imaging STAT Skull mass Expected: 09/30/2022, Expires: 10/01/2023 [facility] Comment on above: Expected: 09/30/2022 , Expires: 10/01/2023 Start: 07-24-2022 COVID-19 VACCINE (2 - Moderna series) COVID-19 VACCINE (2 - Moderna series) [facility] Start: 04-20-2022 COVID-19 VACCINE (2 - Moderna risk series) COVID-19 VACCINE (2 - Moderna risk series) [facility] Start: 11-19-2018 RSV VACCINE (1 - 1-d ose 75+ series) RSV VACCINE (1 - 1-dose 75+ series) [facility] Start: 11-19-2008 Pneumococcal vaccination PNEUM OCOCCAL VACCINE SERIES (1 - PCV) [facility] Start: 2003 RSV VACCINE (1 - 1-d ose 60+ series) RSV VACCINE (1 - 1-dose 60+ series) [facility] Start: 11-19-1993 Zoster vaccine hzv l henrietta for subcutaneous use ZOSTER (SHINGLES) VACCINE (1 of 2) [facility] Start: 11-19-1988 Screening for malign ant neoplasm of colon COLORECTAL CANCER SCREENING DISCUSSION [facility] Start: 11-19-1964 Screening for malign ant neoplasm of cervix CERVICAL CANCER SCREENING DISCUSSION [facility] Start: 11-19-1962 Pneumococcal vaccination PNEUM OCOCCAL VACCINE SERIES (1 of 2 - PCV) [facility] Start: 11-19-1962 Third diphtheria, te tanus and acellular pertussis (DTaP) vaccination TDAP (ADULT) [facility] Start: 11-19-1962 Zoster vaccine hzv l henrietta for subcutaneous use ZOSTER (SHINGLES) VACCINE (1 of 2) [facility] Start: 11-19-1949 Pneumococcal vaccination [facility] Start: 05-21-1944 COVID-19 VACCINE (#1) COVID-19 VACCI NE (#1) [facility] Start: 1943 Hepatitis C screening HEPATITI S C VIRUS SCREENING [facility] Start: 1943 Potassium [Moles/vol ume] in Serum or Plasma POTASSIUM [facility] Start: 1943 Screening for osteoporosis DEXA SCAN DISCUSSION [facility] Start: 1943 Tetanus vaccination TETANUS [facility] Alanine aminotransfe rase [Enzymatic activity/volume] in Serum or Plasma [facility] Albumin [Mass/volume ] in Serum or Plasma [facility] Alkaline phosphatase [Enzymatic activity/volume] in Serum or Plasma [facility] Anion gap in Serum o r Plasma [facility] Basic metabolic 2008 panel with ionized calcium - Serum or Plasma [facility] Bilirubin, total measurement [facility] BUN/Creatinine ratio [facility] Calcium [Mass/volume ] in Serum or Plasma [facility] Carbon dioxide, tota l [Moles/volume] in Central venous blood [facility] Cranioplasty skull d efect 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 Skull mass [facility] Cranioplasty skull d efect 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 Skull mass [facility] Creatinine [Mass/vol ume] in Serum or Plasma [facility] Ecg routine ecg w/le ast 12 lds w/i&r AL ELECTROCARDIOGRAM, COMPLETE AL - OFFICE PERFORMED Routine Preop exam for internal medicine Skull mass Essential hypertension Hyperlipidemia, unspecified hyperlipidemia type Ordered: 10/08/2022 [facility] Comment on above: Ordered: 10/08/2022 End: 11-07-2024 ED US FAST ED US FAST Imaging STAT One Time for 1 Occurrences starting 11/07/2024 until 11/07/2024 [facility] Comment on above: One Time for 1 Occur rences starting 11/07/2024 until 11/07/2024 Erythrocyte mean corpuscular volume determination [facility] Erythrocyte mean corpuscular volume determination [facility] Folate [Moles/volume ] in Serum or Plasma [facility] Fth/gft free w/direc t closure s/a/l 20 cm/< GRAFT SKIN FULL THICKNESS SCALP (FTSG) Skull mass [facility] Fth/gft free w/direc t closure s/a/l 20 cm/< GRAFT SKIN FULL THICKNESS SCALP (FTSG) Skull mass [facility]IN [facility] Glucose [Mass/volume ] in Serum or Plasma [facility] Hematocrit [Volume Fraction] of Blood [facility] Hematocrit [Volume Fraction] of Blood [facility] Hemoglobin [Mass/vol ume] in Blood [facility] Hemoglobin [Mass/vol ume] in Blood [facility] Hemoglobin A1c/Hemoglobin.total in Blood [facility] Hepatic function panel [facility] Hepatic function panel [facility] Chocowinity/lambda light c viviana ratio [facility] Lambda light chains. free [Mass/volume] in Serum or Plasma [facility] Leukocytes [#/volume ] in Blood [facility] Leukocytes [#/volume ] in Blood [facility] Magnesium measurement [facility] Mean corpuscular hemoglobin concentration determination [facility] Mean corpuscular hemoglobin concentration determination [facility] Mean corpuscular hemoglobin determination [facility] Mean corpuscular hemoglobin determination [facility] Measurement of renal function [facility] End: 10-09-[address] [facility] Work Phone: Comment on above: 1 Occurrences starti ng 10/09/2022 until 10/09/2022 End: 01-12-2023 MR Brain W contrast IV [facility] Comment on above: 1 Occurrences starti ng 01/12/2023 until 01/12/2023 End: 03-14-2024 MR Brain W contrast [facility] Comment on above: 1 Occurrences starti ng 03/14/2024 until 03/14/2024 [facility] myoq/fscq flap head&neck w/named vasc pedcl FLAP MUSCLE/MYOCUTANEOUS/FAS CIOCUTANEOUS HEAD OR NECK Skull mass [facility] myoq/fscq flap head&neck w/named vasc pedcl FLAP MUSCLE/MYOCUTANEOUS/FAS CIOCUTANEOUS HEAD OR NECK Skull mass [facility] MAIN OR Neutrophil count [facility] Neutrophil percent differential count [facility] Patient Education [facility] Work Phone: Patient referral [facility] Work Phone: Platelets [#/volume] in Blood [facility] Platelets [#/volume] in Blood [facility] Potassium measurement [facility] End: 01-12-2023 PT Skull base to mid-thigh [facility] Comment on above: 1 Occurrences starti ng 01/12/2023 until 01/12/2023 RAD ONC SIMULATION RAD ONC SIMUL ATION Imaging Routine Neuroendocrine cancer Cancer of cerebral meninges 01/19/2023 2:34 PM EDT [facility] Red blood cell count [facility] Red blood cell count [facility] Red cell distributio n width determination [facility] Red cell distributio n width determination [facility] Serum chloride measurement [facility] Sodium measurement [facility] End: 11-07-2024 Standard ECG ECG ECG STAT One Time for 1 Occurrences starting 11/07/2024 until 11/07/2024 [facility] Comment on above: One Time for 1 Occur rences starting 11/07/2024 until 11/07/2024 Total protein measurement [facility] Troponin T.cardiac [Mass/volume] in Serum or Plasma by High sensitivity method [facility] Urea nitrogen [Mass/volume] in Serum or Plasma [facility] Urine culture [facility] Urine kappa light ch ain measurement [facility] US Carotid arteries [facility] End: 11-07-2024 VITAMIN D (25-HYDROXY,TOTAL) VITAMIN D (25-HYDROXY,TOTAL) Lab Routine One Time for 1 Occurrences starting 11/07/2024 until 11/07/2024 [facility] Comment on above: One Time for 1 Occur rences starting 11/07/2024 until 11/07/2024 Immunizations Immunization Date Immunization Notes Care Provider Fa leydaty 11-07-2024 tetanus and diphther ia toxoids, adsorbed, preservative free, for adult use (5 Lf of tetanus toxoid and 2 Lf of diphtheria toxoid) Ignacio De La Garza Sr., MD, PhD Work Phone: [facility] 03-23-2022 influenza virus vaccine, unspecified formulation Nimo Bueno MD Work Phone: [facility] 04-06-2020 Influenza virus vaccine [facility] 04-06-2020 Dr. Monika Venegas MD Work Phone: [facility] Payers Date Payer Category Payer Self-pay [id number] 2022 Medicare [id number] 2019 Managed Care (unspecified) MEDICARE SUPPLEMENT [id number] 2019 Unknown GENERIC PAYOR ME DICARE SUPPLEMENT [id number] 2019-Present [phone] [place] [id number] [id number]. 2.7.3.534564.315 2019 Unknown [id number] 2008 Medicare [id number] 1945 Unknown [id number] 2..840.1.202457.3.579. 2.594 1945 Unknown [id number] 2.16.840.1.578124.3.579. 2.594 1945 Unknown [id number] 2..840.1.938913.3.579. 2.594 1945 Unknown [id number] 2.840.1.421137.3.579. 2.594 1945 Unknown [id number] 2.840.1.438314.3.579. 2.594 1943 Unknown [id number] 2.840.1.023447.3.579. 2.594 1945 Unknown [id number] 2.840.1.310561.3.579. 2.594 Medicare MEDICARE O OTHER [id number] Private Health Insurance [facility] [id number] Unknown [id number] 2.840.1.881494.3.579. 2.462 Unknown [id number] 2.0.1.413980.3.579. 2.462 Unknown [id number] 2.840.1.348720.3.579. 2.462 Unknown [id number] 2.840.1.401065.3.579. 2.462 Unknown [id number] 2.840.1.467318.3.579. 2.462 Unknown [id number] 2.840.1.642888.3.579. 2.462 Unknown [id number] 2.840.1.811363.3.579. 2.462 Unknown [id number] .840.1.232566.3.579. 2.462 Unknown [id number] 2.840.1.968525.3.579. 2.462 Unknown [id number] 2.840.1.502016.3.579. 2.462 Unknown [id number] 2.840.1.227611.3.579. 2.462 Unknown [id number] 2.16.840.1.476969.3.579. 2.462 Unknown [id number] 2.16.840.1.279900.3.579. 2.462 Unknown [id number] 2.16.840.1.018723.3.579. 2.462 Unknown [id number] 2.16.840.1.978491.3.579. 2.462 Unknown [id number] 2.16840.1.011804.3.579. 2.462 Unknown [id number] 2.16840.1.075292.3.579. 2.462 Unknown [id number] 2.840.1.154463.3.579. 2.462 Unknown [id number] 2.840.1.389564.3.579. 2.462 Unknown [id number] 2.840.1.768959.3.579. 2.462 Unknown [id number] 2.840.1.836859.3.579. 2.462 Unknown [id number] 2.840.1.754228.3.579. 2.462 Unknown [id number] 2.840.1.976506.3.579. 2.462 Unknown [id number] 2.840.1.295900.3.579. 2.462 Unknown [id number] 2.840.1.293500.3.579. 2.462 Unknown [id number] 2.840.1.568557.3.579. 2.462 Unknown [id number] 2.16840.1.707179.3.579. 2.462 Unknown [id number] 2.16840.1.588357.3.579. 2.462 Unknown [id number] 2.16840.1.342036.3.579. 2.462 Unknown [id number] 2.840.1.254775.3.579. 2.462 Unknown [id number] 2.16.840.1.989657.3.579. 2.462 Unknown [id number] 2.16.840.1.370586.3.579. 2.462 Unknown [id number] 2.16.840.1.348606.3.579. 2.462 Unknown [id number] 2.16.840.1.722272.3.579. 2.462 Unknown [id number] 2.16.840.1.703677.3.579. 2.462 Unknown [id number] 2.16.840.1.032218.3.579. 2.462 Unknown [id number] 2.16.840.1.741589.3.579. 2.462 Unknown [id number] 2.16.840.1.535680.3.579. 2.462 Unknown [id number] 2.840.1.692079.3.579. 2.462 Unknown [id number] 2.840.1.612720.3.579. 2.462 Social History Date Type Detail Facility Start: 07-31-2021 End: 07-19-2023 Tobacco smoking status NHIS Unknown if ever smoked [facility] Start: 08-28-2020 Alone [facility] Start: 08-14-2020 Non-smoker [facility] Start: 1945 Sex Assigned At Female [facility] Start: 1945 Sex Assigned At Not on file [facility] Start: 10-04-2022 End: 12-03-2024 Tobacco smoking status NHIS Never smoked tobacco [facility] Start: 10-04-2022 Tobacco use and exposure Smokeless tobacco non-user [facility] Start: 10-04-2022 End: 10-08-2022 Alcohol intake Current drinker of alcohol (finding) [facility] Start: 10-04-2022 Alcohol Comment socially once a year [facility] Start: 01-12-2023 End: 11-04-2024 Alcohol intake Ex-drinker (finding) [facility] Start: 11-18-2022 End: 07-11-2024 History of Social function [facility] Start: 11-18-2022 End: 07-11-2024 Alcohol Use Disorder Identification Test - Consumption [AUDIT-C] [facility] How often to you hav e a drink containing alcohol? Monthly or less [facility] How many standard dr inks containing alcohol do you have on a typical day? 1 or 2 [facility] How often do you hav e 6 or more drinks on 1 occasion? Never [facility] (I/) worried mark anthony er (my/our) food would run out before (I/we) got money to buy more. Never true [facility] In the past 12 month s, has lack of transportation kept you from medical appointments or from getting medications? No [facility] In the past 12 month s, was there a time when you were not able to pay the mortgage or rent on time? No [facility] Start: 11-09-2022 End: 11-19-2022 Exposure to SARS-CoV-2 (event) Not sure [facility] Start: 07-08-2024 Gender identity Identifies as female gender (finding) [facility] Start: 07-08-2024 Sexual orientation Heterosexual (finding) [place] Start: 09-27-2022 End: 09-27-2024 Sex Female (finding) [facility] Medical Equipment Procedure Code Equipment Code Equipment Original Text Equipment Identifier Dates Sealant Dural Ad herus Autospray Et - [id number] Start: 11-16-2022 Screw Bone 5mm 1 .8mm Emergency Craniofacial Level One - [id number] Start: 11-24-2022 Clearfit Cranial Implant [id number] Start: 11-25-2022 Clearfit Cranial Implant [id number] Start: 11-16-2022 Patch Dural 3x3i n Durepair Substitute - [id number] Start: 11-16-2022 Screw Bone 5mm 1 .8mm Emergency Craniomaxillofacial Level One - [id number] Start: 11-24-2022 Patch Dural 7x5i n Thk3.5mm Craniomaxillofacial - [id number] Start: 11-24-2022 Mesh Titanium 3m m Regular Cranial Screen Panel 08-290-72-09 - [id number] Start: 11-24-2022 Plate Bone .6mm Curve Craniomaxillofacial 5x2 Hole Low - [id number] Start: 11-24-2022 Plate Bn .6mm Cr nmxf 3x2 Hl Lwpr Crv Seg Ti Nst - [id number] Start: 11-24-2022 Cover [place] Hole Craniofacial .3mm 15mm Ultra Low Profile - [id number] Start: 11-24-2022 Screw Bone 5mm 1 .5mm Craniomaxillofacial Level One - [id number] Start: 11-24-2022 Screw Bone Drill Free Craniomaxillofacial Titanium Level One - [id number] Start: 11-25-2022 Cover Bur Hl Crn mxf .4mm 17mm Matrixneuro Ti Nst Eddie - [id number] Start: 11-24-2022 Cover Bur Hl Crn mxf .4mm 17mm Matrixneuro Ti Nst Eddie - [id number] Start: 11-16-2022 Screw 1.5x4mm 04.503.104.01 - [id number] Start: 11-24-2022 Screw 1.5x4mm 04.503.104.01 - [id number] Start: 11-16-2022 Cover Bur Hl Crn mxf .4mm 15mm Matrixneuro Ti Nst Eddie - [id number] Start: 11-24-2022 Cover Bur Hl Crn mxf .4mm 15mm Matrixneuro Ti Nst Eddie - [id number] Start: 11-16-2022 Cover [place] Craniomaxillofacial .4mm 24mm Matrixneuro - [id number] Start: 11-24-2022 Cover [place] Hole Craniomaxillofacial .4mm 24mm Matrixneuro - [id number] Start: 11-16-2022 Mesh Matrixneuro [id number].6mm Titanium Cranial Rigid - [id number] Start: 11-24-2022 Mesh Matrixneuro 691w823j.6mm Titanium Cranial Rigid - [id number] Start: 11-16-2022 Goals Date Patient Goal Desired Activity /State Functional Status Date Assessment Result Facility 12-06-2024 Functional status Ambulates [facility] Work Phone: 11-29-2024 Functional status With Assist of 1 [facility] Work Phone: 11-27-2024 Functional status Ambulates [facility] Work Phone: 11-08-2024 Are you deaf, or do you have serious difficulty hearing Yes 11/08/2024 4:11 PM Shelby Montano RN Yes [facility] 11-08-2024 Are you blind, or do you have serious difficulty seeing, even when wearing glasses No 11/08/2024 4:11 PM Shelby Montano RN No [facility] 11-08-2024 Do you have serious difficulty walking or climbing stairs Yes 11/08/2024 4:11 PM Shelby Montano, MICAH Yes [facility] 11-08-2024 Do you have difficul ty dressing or bathing No 11/08/2024 4:11 PM Shelby Montano, MICAH No [facility] 11-08-2024 Because of a physica l, mental, or emotional condition, do you have difficulty doing errands alone such as visiting a physician's office or shopping No 11/08/2024 4:11 PM Shelby Montano RN No [facility] 01-06-2023 Are you deaf, or do you have serious difficulty hearing Yes 01/06/2023 9:52 AM Hansa Patiño, MICAH Yes [facility] 01-06-2023 Are you blind, or do you have serious difficulty seeing, even when wearing glasses No 01/06/2023 9:52 AM Hansa Patiño, MICAH No [facility] 01-06-2023 Do you have serious difficulty walking or climbing stairs Yes 01/06/2023 9:52 AM Hansa Patiño, RN Yes [facility] 01-06-2023 Do you have difficul ty dressing or bathing No 01/06/2023 9:52 AM Hansa Patiño, MICAH No [facility] 01-06-2023 Because of a physica l, mental, or emotional condition, do you have difficulty doing errands alone such as visiting a physician's office or shopping No 01/06/2023 9:52 AM Hansa Patiño, MICAH No [facility] 01-01-2023 Functional status Activity Abili ty Standby Assist [facility] Work Phone: 12-31-2022 Functional status Chair [facility] Work Phone: 12-24-2022 Functional status Ambulates [facility] Work Phone: 12-23-2022 Functional status Ambulates [facility] Work Phone: Mental Status Date Assessment Result Facility 12-06-2024 Cognitive function Voice/Name [facility] Work Phone: 12-03-2024 Cognitive function Voice/Name [facility] Work Phone: 11-29-2024 Cognitive function Voice/Name [facility] Work Phone: 11-08-2024 Because of a physica l, mental, or emotional condition, do you have serious difficulty concentrating, remembering, or making decisions No 11/08/2024 4:11 PM Shelby Montano, MICAH No [facility] 11-07-2024 Cognitive function Voice/Name [facility] Work Phone: 09-27-2024 Cognitive function Awake;Alert;A ppropriate; Follows Commands [facility] Work Phone: 01-06-2023 Because of a physica l, mental, or emotional condition, do you have serious difficulty concentrating, remembering, or making decisions No 01/06/2023 9:52 AM Hansa Patiño, RN No [facility] 01-01-2023 Cognitive function Voice/Name [facility] Work Phone: 12-24-2022 Cognitive function Voice/Name [facility] Work Phone: 12-23-2022 Cognitive function Voice/Name [facility] Work Phone: Clinical Notes 09-30-2022 to 12-06-2024 Note Date & Type Note Facility 12-06-2024 Discharge summary Note Date/Time December 06, 2024 3:28p m [facility] Medical Records Department [address] [place] [address] Transfer to [facility] MR#: [id number] Acct: [id number] Name: SARAH MCGUIRE Rep #:[id number] : 1945 79 From: Alix Hudson DO PCP: Dr. Monika Venegas MD Status:ADM IN Certification of patient admission REQUIRED AT TIME OF ADMISSION. I CERTIFY THAT POST-HOSPITAL ECF SERVICES ARE REQUIRED TO BE GIVEN ON AN IN-PATIENT BASIS BECAUSE OF THE ABOVE NAMED PATIENT'S NEED FOR FCI CARE ON A CONTINUING BASIS FOR THE CONDITION(S) FOR WHICH HE/SHE WAS RECEIVINGIN-PATIENT HOSPITAL SERVICES PRIOR TO HIS/HER TRANSFER TO THE [facility]. 12/06/24 1528<Electronically signed by Alix Hudson DO> Diet Diet Order/Speech Therapy: INPATIENT Hospital Diet / Speech Therapy Order(s) 12/03/24 22:56 Diet: Cardiac - Heart Healthy Food consistency:: Regular Liquid Consistency:: Regular/Thin Type of Dietary Supplement:: Bunny Fluid restriction:: 1250 mL Diet Comments: pineapple coconut bunny with breakfast and dinner Routine Orders/Code Status Suppository Frequency: Daily PRN Routine Lab Work: CBC (As needed) and BMP (12/10/2024) Code Status: Full Code DC O2, CPAP, BIPAP needs Home O2 Discharge instructions: No Wound(s) sacrum: Wound Type: Pressure Injury Therapies Weight Bearing: Full weight bearing Physical Therapy: Eval and Treat Occupational Therapy: Eval and Treat Problem/Diagnosis (1) Hyponatremia: Status: Acute Code(s): E87.1 - Hypo-osmolality and hyponatremia Allergies/Procedures Done in Hospital Allergies No Known Allergies Allergy (Verified 12/03/24 15:46) Procedures: None Type of Care/Length of Stay Estimated LOS: Convalescent Care Less Than 30 days Type of Care Needed: Skilled Rehab Potential: Fair Prognosis: Fair Additional Orders/Day of Discharge Day of Discharge: 12/06/24 Dietary and Speech Recommendations Dietitian Recommendations/Changes: Continue cardiac diet with 1250ml fluid restriction per MD. Will discontinue EPHP due to fluid restriction and replace with pineapple coconut bunny BID with breakfast and dinner to promote wound healing. Will monitor weight trends. Follow Up Care Please follow up with your Primary Care Physician in: 1 week after discharge from half-way facility Please Follow Up With: Gagan Schlute MD When: Next week as previously scheduled Discharge Plan Admission Admit Date/Time: 12/05/24 18:07 Primary Reason for Your Visit: Generalized weakness Attending Provider: Alix Hudson Primary Care Provider: Monika Venegas Consulting Providers: Darnell Gonzalez; Gagan Schulte Discharge Orders/Prescriptions Prescriptions: New sodium chloride 1,000 mg Tablet,Soluble 1,000 mg PO Q4 Qty: 1 0RF Continued multivitamin Tablet 1 tablet PO DAILY cyanocobalamin (vitamin B-12) 500 MCG tablet,chewable 1,000 mcg PO DAILY cholecalciferol (vitamin D3) 125 MCG capsule 125 mcg PO DAILY acetaminophen 325 mg capsule 325 mg PO Q4H PRN (Reason: pain) hydralazine 50 mg Tablet 50 mg PO TID Qty: 90 0RF levetiracetam 750 mg Tablet 750 mg PO BID Qty: 60 0RF apixaban 2.5 mg tablet 2.5 mg PO BID Qty: 180 4RF amiodarone 200 mg tablet 200 mg PO DAILY Qty: 90 3RF atorvastatin 10 mg tablet 10 mg PO QHS Qty: 90 3RF Discontinued sodium chloride 1,000 mg Tablet,Soluble 1,000 mg PO TIDCM Qty: 90 0RF Referrals / Follow Up: Monika Venegas MD [Primary Care Provider] - In 1 Week (After discharge from SNF) Gagan Schulte MD [Med Staff - Consulting] - See Referral Note (As scheduledfor next week) Disposition Disposition (needs filled in before D/C Order can be placed): Shelter Facility 12/06/24 1528 <Electronically signed by Alix Hudson DO> Cosigner Signature (if applicable): CC: Dr. Monika Venegas MD; Dr. Darnell Gonzalez DO; Dr. Gagan Schulte MD ~ [facility] Work Phone: 1(871) 598-738307-03-2025 Discharge summary Author Alix [facility] Note Date/Time December 06, 2024 3:14p m [facility] Medical Records Department [address] [place] [address] Discharge Summary 12/06/24 1755 MR#: [id number] Acct: [id number] Name: SARAH MCGUIRE Rep #:[id number] : 1945 79 From: Alix Hudson DO PCP: Dr. Monika Venegas MD Status:ADM IN [facility] Prov[facility] Date of Admission: 12/05/24 Date of Discharge: 12/06/24 Primary Care Physician: Dr. 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 EMERGENT Consult: No Notified: No Date Notified: 12/05/24 Time Notified: 07:09 12/05/24 07:43 Consult: Nephrology Routine Consulting Provider: Gagan Schulte Reason for Consult: hyponatremia acute with PKTY EMERGENT Consult: No Notified: Yes Date Notified: 12/05/24 Time Notified: 07:43 Method of Notification: Answering Service Reason For Visit: GENERALIZED WEAKNESS WITH AMBULATORY DYSFUNCTION Diagnosis Discharge Diagnosis (1) Hyponatremia: Status: Acute Code(s): E87.1 - Hypo-osmolality and hyponatremia Medications at Discharge Home Medications multivitamin 1 tablet PO DAILY supplement 08/12/20 cholecalciferol (vitamin D3) 125 mcg (5,000 unit) capsule 125 mcg PO DAILY supplement 08/14/20 cyanocobalamin (vitamin B-12) 500 mcg chewable tablet 1,000 mcg PO DAILY supplement 08/14/20 apixaban 2.5 mg tablet 2.5 mg PO BID called to [facility] tabs 08/13/24 acetaminophen 325 mg capsule 325 mg PO Q4H PRN pain 11/12/24 hydralazine 50 mg tablet 50 mg PO TID bp #90 tabs 11/27/24 levetiracetam 750 mg tablet 750 mg PO BID sezuire #60 tabs 11/27/24 amiodarone 200 mg tablet 200 mg PO DAILY heart #90 TABLETS 12/06/24 atorvastatin 10 mg tablet 10 mg PO QHS for cholesterol #90 TABLETS 12/06/24 sodium chloride 1,000 mg soluble tablet 1,000 mg PO Q4 #1 TAB 12/06/24 Hospital Course Operations None Procedures None Summary of Care Provided Minutes Spent on Discharge: 38 Hospital Course: Mrs. Mcguire is an 79-year-old white female who presented to the emergency department [facility] on 12/03/2024 with generalized weakness. She had a recent hospitalization and then was discharged to the rehab unit. Shewas there for acute rehab from November 13 through November 27 and discharged home on the . Patient reports that she actually fell getting into the house when she got home and has slowly declined since that point in time. It sounds like she is becoming progressively weak over the last several days prior to presentation and she had a history of hyponatremia so they were concerned that maybe her sodium levels were low again so they brought her from the emergency department for evaluation. She does have a history of urinary tract infections but denied dysuria or frequency at the time of presentation. Vital signs at time of presentation showed temperature 98.1, heart rate 79, respiratory 16, blood pressure 159/49 and pulse ox was 98% on room air. CBC showed chronic stable anemia with hemoglobin of 10 but was otherwise unremarkable. Chemistry panel was unremarkable. UA was not really suggestive of infection as she had nowhite cells but did have bacteria so I highly suspect bacteriuria. Culture was sent by the emergency department and she was started on antibiotics. Given her lack of symptoms this was discontinued. Sodium on presentation was 133. She has been diagnosed with SIADH and is on fluid restriction and salt tablets for this. She has required tolvaptan previously as well. She was initially given IV fluids and dropped her sodium to 130. We fluid restrict her diet and placed her on sodium yet her sodium still dropped to 126 so we gave her a dose of tolvaptan and consulted nephrology. With the fold apnea and continuing her fluid restriction as well as salt tablets her sodium has increased to 133 on theday of discharge. Dr. Schulte from nephrology has an appointment with her next week and suggested we increase her sodium tablets. She will now get sodium tablets 6 times daily and fluid restrict her diet to 1250 cc daily. She was seen by physical Occupational Therapy and they did feel that she would benefit from ongoing rehab services at discharge and family wanted her to go back to healthy living. As noted above, urine culture was obtained and while she had 2 organisms that grew both were significantly low colony counts not distant with acute infection and given the fact she was asymptomatic as well I feel that she has asymptomatic bacteriuria. Bed became available for her on 12/05/2024 with herimproved sodium with verbal to discharge her in stable condition on 12/06/2024. Discharge diagnoses: Generalized weakness Falls neck pain debility Ambulatory dysfunction asymptomatic bacteriuria Hyponatremia secondary to SIADH Recent subdural hematoma Essential hypertension Hyperlipidemia Seizure disorder Chronic stage II diastolic dysfunction/HFpEF Physical Exam Const alert, oriented x3, no apparent distress, average body habitus and well nourished; Negative for healthy appearing Constitutional Narrative: Elderly, white female, lying in bed, appears somewhat frail but nontoxic, patient does seem to have some forgetfulness and memory loss General Appearance: cooperative, comfortable, well kempt and well developed Orientation / Consciousness: awake HEENT normocephalic, head/scalp atraumatic, hearing grossly normal bilaterally and moist oral mucous membranes HEENT Narrative: Mallampati 2, no thrush, dentures in place Eyes conjunctivae normal Eyes Narrative: No scleral icterus Neck supple Neck Narrative: Trachea midline Resp normal respiratory effort, no retractions, no use of accessory muscles and clearto auscultation bilaterally Auscultation: Negative for rales, rhonchi or wheezes Cardio regular rate, regular rhythm, S1 normal heart sound, S2 normal heart sound, no murmurs, no rub, no gallops and no clicks GI normal to inspection, nondistended, normoactive bowel sounds, soft to palpation and non-tender GI Narrative: No suprapubic tenderness present Extremity no clubbing, cyanosis or edema Extremity Narrative: 2+ pedal and radial pulses Skin skin turgor normal, no jaundice, no petechiae and no mottling Neuro oriented x3, moves all extremities and no focal motor deficits Neuro Narrative: Significant debility and generalized weakness noted, voice remains mildly tremulous Speech: Negative for speech normal Psych affect normal Psych Narrative: eye contact is good and patient interacts appropriately Weight / BMI Weight Weight: 48.3 kg Body Mass Index (BMI) 23.9 ABG / Lab / Microbiology Data 12/05/24 04:56 12/06/24 04:48 Laboratory: Laboratory Results - last 24 hr 12/06/24 04:48: Sodium 133, Potassium 3.8, Chloride 101, Carbon Dioxide 23.6, Anion Gap 8, BUN 13, Creatinine 0.68 L, Estim Creat Clear Calc 39.62 L, Est GFR (MDRD) Non-Af 88, BUN/Creatinine Ratio 19.4, Glucose 99, Calcium 8.4 Microbiology: Microbiology 12/03/24 20:10 Urine Catheter - Catheter Urine Culture - Final Pseudomonas aeruginosa Enterococcus faecalis D/C Instructions DC O2, CPAP, BIPAP Needs Home O2 Discharge instructions: No Meaningful Use Info Meaningful Use Meaningful Use [...] Simvastatin 80mg Discharge Plan Admission Admit Date/Time: 12/05/24 18:07 Primary Reason for Your Visit: Generalized weakness Attending Provider: Alix Hudson Primary Care Provider: Monika Venegas Consulting Providers: Darnell Gonzalez; Gagan Schulte Discharge Orders/Prescriptions Prescriptions: New sodium chloride 1,000 mg Tablet,Soluble 1,000 mg PO Q4 Qty: 1 0RF Continued multivitamin Tablet 1 tablet PO DAILY cyanocobalamin (vitamin B-12) 500 MCG tablet,chewable 1,000 mcg PO DAILY cholecalciferol (vitamin D3) 125 MCG capsule 125 mcg PO DAILY acetaminophen 325 mg capsule 325 mg PO Q4H PRN (Reason: pain) hydralazine 50 mg Tablet 50 mg PO TID Qty: 90 0RF levetiracetam 750 mg Tablet 750 mg PO BID Qty: 60 0RF apixaban 2.5 mg tablet 2.5 mg PO BID Qty: 180 4RF amiodarone 200 mg tablet 200 mg PO DAILY Qty: 90 3RF atorvastatin 10 mg tablet 10 mg PO QHS Qty: 90 3RF Discontinued sodium chloride 1,000 mg Tablet,Soluble 1,000 mg PO TIDCM Qty: 90 0RF Referrals / Follow Up: Monika Venegas MD [Primary Care Provider] - In 1 Week (After discharge from SNF) Gagan Schulte MD [Med Staff - Consulting] - See Referral Note (As scheduledfor next week) Disposition Disposition (needs filled in before D/C Order can be placed): Shelter Facility Charges/Coding Visit Charges Inpatient E&M: 51402 SNF Disch >30 Min 12/06/24 1514 <Electronically signed by Alix Hudson DO> Cosigner Signature (if applicable): CC: Dr. Monika Venegas MD; Dr. Gagan Schulte MD; Dr. Alix Hudson DO~ Signed [facility] Work Phone: 1(465) 944-894407-03-2025 Discharge summary [facility] Medical Records Department [address] [place] [address] Transfer to [facility] MR#: [id number] Acct: [id number] Name: SARAH MCGUIRE Rep #:[id number] : 1945 79 From: Alix Hudson DO PCP: Dr. Monika Venegas MD Status:ADM IN Certification of patient admission REQUIRED AT TIME OF ADMISSION. I CERTIFY THAT POST-HOSPITAL ECF SERVICES ARE REQUIRED TO BE GIVEN ON AN IN-PATIENT BASIS BECAUSE OF THE ABOVE NAMED PATIENT'S NEED FOR [facility] CARE ON A CONTINUING BASIS FOR THE CONDITION(S) FOR WHICH HE/SHE WAS RECEIVINGIN-PATIENT HOSPITAL SERVICES PRIOR TO HIS/HER TRANSFER TO THE [facility]. 12/06/24 1528 Diet Diet Order/Speech Therapy: INPATIENT Hospital Diet / Speech Therapy Order(s) 12/03/24 22:56 Diet: Cardiac - Heart Healthy Food consistency:: Regular Liquid Consistency:: Regular/Thin Type of Dietary Supplement:: Bunny Fluid restriction:: 1250 mL Diet Comments: pineapple coconut bunny with breakfast and dinner Routine Orders/Code Status Suppository Frequency: Daily PRN Routine Lab Work: CBC (As needed) and BMP (12/10/2024) Code Status: Full Code DC O2, CPAP, BIPAP needs Home O2 Discharge instructions: No Wound(s) sacrum: Wound Type: Pressure Injury Therapies Weight Bearing: Full weight bearing Physical Therapy: Eval and Treat Occupational Therapy: Eval and Treat Problem/Diagnosis (1) Hyponatremia: Status: Acute Code(s): E87.1 - Hypo-osmolality and hyponatremia Allergies/Procedures Done in Hospital Allergies No Known Allergies Allergy (Verified 12/03/24 15:46) Procedures: None Type of Care/Length of Stay Estimated LOS: Convalescent Care Less Than 30 days Type of Care Needed: Skilled Rehab Potential: Fair Prognosis: Fair Additional Orders/Day of Discharge Day of Discharge: 12/06/24 Dietary and Speech Recommendations Dietitian Recommendations/Changes: Continue cardiac diet with 1250ml fluid restriction per MD. Will discontinue EPHP due to fluid restriction and replace with pineapple coconut bunny BID with breakfast and dinner to promote wound healing. Will monitor weight trends. Follow Up Care Please follow up with your Primary Care Physician in: 1 week after discharge from half-way facility Please Follow Up With: Gagan Schulte MD When: Next week as previously scheduled Discharge Plan Admission Admit Date/Time: 12/05/24 18:07 Primary Reason for Your Visit: Generalized weakness Attending Provider: Alix Hudson Primary Care Provider: Monika Venegas Consulting Providers: Darnell Gonzalez; Gagan Schulte Discharge Orders/Prescriptions Prescriptions: New sodium chloride 1,000 mg Tablet,Soluble 1,000 mg PO Q4 Qty: 1 0RF Continued multivitamin Tablet 1 tablet PO DAILY cyanocobalamin (vitamin B-12) 500 MCG tablet,chewable 1,000 mcg PO DAILY cholecalciferol (vitamin D3) 125 MCG capsule 125 mcg PO DAILY acetaminophen 325 mg capsule 325 mg PO Q4H PRN (Reason: pain) hydralazine 50 mg Tablet 50 mg PO TID Qty: 90 0RF levetiracetam 750 mg Tablet 750 mg PO BID Qty: 60 0RF apixaban 2.5 mg tablet 2.5 mg PO BID Qty: 180 4RF amiodarone 200 mg tablet 200 mg PO DAILY Qty: 90 3RF atorvastatin 10 mg tablet 10 mg PO QHS Qty: 90 3RF Discontinued sodium chloride 1,000 mg Tablet,Soluble 1,000 mg PO TIDCM Qty: 90 0RF Referrals / Follow Up: Monika Venegas MD [Primary Care Provider] - In 1 Week (After discharge from SNF) Gagan Schulte MD [Med Staff - Consulting] - See Referral Note (As scheduledfor next week) Disposition Disposition (needs filled in before D/C Order can be placed): Shelter Facility 12/06/24 1528 Cosigner Signature (if applicable): CC: Dr. Monika Venegas MD; Dr. Darnell Gonzalez DO; Dr. Gagan Schulte MD ~ [facility]07-03-2025 Discharge summary [facility] Medical Records Department [address] [place] [address] Discharge Summary 12/06/24 1455 MR#: [id number] Acct: [id number] Name: SARAH MCGUIRE Rep #:[id number] : 1945 79 From: Alix Hudson DO PCP: Dr. Monika Venegas MD Status:ADM IN [id number] Prov[facility] Date of Admission: 12/05/24 Date of Discharge: 12/06/24 Primary Care Physician: Dr. 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 EMERGENT Consult: No MD Notified: No Date Notified: 12/05/24 Time Notified: 07:09 12/05/24 07:43 Consult: Nephrology Routine Consulting Provider: Gagan Schulte Reason for Consult: hyponatremia acute with PKTY EMERGENT Consult: No MD Notified: Yes Date Notified: 12/05/24 Time Notified: 07:43 Method of Notification: Answering Service Reason For Visit: GENERALIZED WEAKNESS WITH AMBULATORY DYSFUNCTION Diagnosis Discharge Diagnosis (1) Hyponatremia: Status: Acute Code(s): E87.1 - Hypo-osmolality and hyponatremia Medications at Discharge Home Medications multivitamin 1 tablet PO DAILY supplement 08/12/20 cholecalciferol (vitamin D3) 125 mcg (5,000 unit) capsule 125 mcg PO DAILY supplement 08/14/20 cyanocobalamin (vitamin B-12) 500 mcg chewable tablet 1,000 mcg PO DAILY supplement 08/14/20 apixaban 2.5 mg tablet 2.5 mg PO BID called to [facility]180 tabs 08/13/24 acetaminophen 325 mg capsule 325 mg PO Q4H PRN pain 11/12/24 hydralazine 50 mg tablet 50 mg PO TID bp #90 tabs 11/27/24 levetiracetam 750 mg tablet 750 mg PO BID sezuire #60 tabs 11/27/24 amiodarone 200 mg tablet 200 mg PO DAILY heart #90 TABLETS 12/06/24 atorvastatin 10 mg tablet 10 mg PO QHS for cholesterol #90 TABLETS 12/06/24 sodium chloride 1,000 mg soluble tablet 1,000 mg PO Q4 #1 TAB 12/06/24 Hospital Course Operations None Procedures None Summary of Care Provided Minutes Spent on Discharge: 38 Hospital Course: Mrs. Mcguire is an 79-year-old white female who presented to the emergency department [facility] on 12/03/2024 with generalized weakness. She had a recent hospitalization and then was discharged to the rehab unit. Shewas there for acute rehab from November 13 through November 27 and discharged home on the . Patient reports that she actually fell getting into the house when she got home and has slowly declined since that point in time. It sounds like she is becoming progressively weak over the last several days prior to presentation and she had a history of hyponatremia so they were concerned that maybe her sodium levels were low again so they brought her from the emergency department for evaluation. She does have a history of urinary tract infections but denied dysuria or frequency at the time of presentation. Vital signs at time of presentation showed temperature 98.1, heart rate 79, respiratory 16, blood pressure 159/49 and pulse ox was 98% on room air. CBC showed chronic stable anemia with hemoglobin of 10 but was otherwise unremarkable. Chemistry panel was unremarkable. UA was not really suggestive of infection as she had nowhite cells but did have bacteria so I highlysuspect bacteriuria. Culture was sent by the emergency department and she was started on antibiotics. Given her lack of symptoms this was discontinued. Sodium on presentation was 133. She has been mo gnosed with SIADH and is on fluid restriction and salt tablets for this. She has required tolvaptanpreviously as well. She was initially given IV fluids and dropped her sodium to 130. We fluid restrict her diet and placed her on sodium yet her sodium still dropped to 126 so we gave her a dose of tolvaptan and consulted nephrology. With the fold apnea and continuing her fluid restriction as well as salt tablets her sodium has increased to 133 on theday of discharge. Dr. Schulte from nephrology has an appointment with her next week and suggested we increase her sodium tablets. She will now get sodium tablets 6 times daily and fluid restrict her diet to 1250 cc daily. She was seen by physical O ccupational Therapy and they did feel that she would benefit from ongoing rehab services at discharge and family wanted her to go back to healthy living. As noted above, urine culture was obtained and while she had 2 organisms that grew both were significantly low colony counts not distant with acute infection and given the fact she was asymptomatic as well I feel that she has asymptomatic bacteriuria. Bed became available for her on 12/05/2024 with herimproved sodium with verbal to discharge herin stable condition on 12/06/2024. Discharge diagnoses: Generalized weakness Falls neck pain debility Ambulatory dysfunction asymptomatic bacteriuria Hyponatremia secondary to SIADH Recent subdural hematoma Essential hypertension Hyperlipidemia Seizure disorder Chronic stage II diastolic dysfunction/HFpEF Physical Exam Const alert, oriented x3, no apparent distress, average body habitus and well nourished; Negative for healthy appearing Constitutional Narrative: Elderly, white female, lying in bed, appears somewhat frail but nontoxic, patient does seem to havesome forgetfulness and memory loss General Appearance: cooperative, comfortable, well kempt and well developed Orientation / Consciousness: awake HEENT normocephalic, head/scalp atraumatic, hearing grossly normal bilaterally and moist oral mucous membranes HEENT Narrative: Mallampati 2, no thrush, dentures in place Eyes conjunctivae normal Eyes Narrative: No scleral icterus Neck supple Neck Narrative: Trachea midline Resp normal respiratory effort, no retractions, no use of accessory muscles and clearto auscultation bilaterally Auscultation: Negative for rales, rhonchi or wheezes Cardio regular rate, regular rhythm, S1 normal heart sound, S2 normal heart sound, no murmurs, no rub, no gallops and no clicks GI normal to inspection, nondistended, normoactive bowel sounds, soft to palpation and non-tender GI Narrative: No suprapubic tenderness present Extremity no clubbing, cyanosis or edema Extremity Narrative: 2+ pedal and radial pulses Skin skin turgor normal, no jaundice, no petechiae and no mottling Neuro oriented x3, moves all extremities and no focal motor deficits Neuro Narrative: Significant debility and generalized weakness noted, voice remains mildly tremulous Speech: Negative for speech normal Psych affect normal Psych Narrative: eye contact is good and patient interacts appropriately Weight / BMI Weight Weight: 48.3 kg Body Mass Index (BMI) 23.9 ABG / Lab / Microbiology Data 12/05/24 04:56 12/06/24 04:48 Laboratory: Laboratory Results - last 24 hr 12/06/24 04:48: Sodium 133, Potassium 3.8, Chloride 101, Carbon Dioxide 23.6, Anion Gap 8, BUN 13, Creatinine 0.68 L, Estim Creat Clear Calc 39.62 L, Est GFR (MDRD) Non-Af 88, BUN/Creatinine Ratio 19.4, Glucose 99, Calcium 8.4 Microbiology: Microbiology 12/03/24 20:10 Urine Catheter - Catheter Urine Culture - Final Pseudomonas aeruginosa Enterococcus faecalis D/C Instructions DC O2, CPAP, BIPAP Needs Home O2 Discharge instructions: No Meaningful Use Info Meaningful Use Meaningful Use [...] Simvastatin 80mg Discharge Plan Admission Admit Date/Time: 12/05/24 18:07 Primary Reason for Your Visit: Generalized weakness Attending Provider: Alix Hudson Primary Care Provider: Monika Venegas Consulting Providers: Darnell Gonzalez; Gagan Schulte Discharge Orders/Prescriptions Prescriptions: New sodium chloride 1,000 mg Tablet,Soluble 1,000 mg PO Q4 Qty: 1 0RF Continued multivitamin Tablet 1 tablet PO DAILY cyanocobalamin (vitamin B-12) 500 MCG tablet,chewable 1,000 mcg PO DAILY cholecalciferol (vitamin D3) 125 MCG capsule 125 mcg PO DAILY acetaminophen 325 mg capsule 325 mg PO Q4H PRN (Reason: pain) hydralazine 50 mg Tablet 50 mg PO TID Qty: 90 0RF levetiracetam 750 mg Tablet 750 mg PO BID Qty: 60 0RF apixaban 2.5 mg tablet 2.5 mg PO BID Qty: 180 4RF amiodarone 200 mg tablet 200 mg PO DAILY Qty: 90 3RF atorvastatin 10 mg tablet 10 mg PO QHS Qty: 90 3RF Discontinued sodium chloride 1,000 mg Tablet,Soluble 1,000 mg PO TIDCM Qty: 90 0RF Referrals / Follow Up: Monika Venegas MD [Primary Care Provider] - In 1 Week (After discharge from SNF) Gagan Schulte MD [Med Staff - Consulting] - See Referral Note (As scheduledfor next week) Disposition Disposition (needs filled in before D/C Order can be placed): Shelter Facility Charges/Coding Visit Charges Inpatient E&M: 33949 SNF Disch >30 Min 12/06/24 4618 Cosigner Signature (if applicable): CC: Dr. Monika Venegas MD; Dr. Gagan Schulte MD; Dr. Alix Hudson, DO~ Signed [facility]07-03-2025 [facility]07-03-2025 Hospital Discharge instructionsAdditional Instructions Date of Discharge: 12/[facility]/24[facility] Work Phone: 1(425) 294-668707-02-2025 Consult note Author Gagan Schulte [facility] Note Date/Time December 05, 2024 3:39p m [facility] Medical Records Department [address] [place] [address] Consultation - Nephrology 12/05/24 1534 MR#: [id number] Acct: [id number] Name: SARAH MCGUIRE Rep #:[id number] : 1945 79 From: Gagan astorga MD PCP: Dr. Monika Venegas MD Status:ADM TED Location: MS3 [id number] Assessment & Plan Assessment/Plan (1) Hyponatremia: PLAN: Recently admitted at rehab unit with hyponatremia. 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 Initially was placed on salt tablets, did not improve. Received a dose of tolvaptan which resulted in improvement. Unfortunately tolvaptan use asoutpatient is very restrictive, expensive. Will have to use salt tablets at higher dose likely. HPI Consult Data Date of Consult: 12/05/24 HPI Narrative Reason for Consultation: hyponatremia HPI Narrative: SARAH MCGUIRE, is a 79 F who presents To the hospital with generalized weakness. She is well-known to us from recent admission at the rehab unit. Was recently admitted at [facility] with subdural fluid collection, subsequently was transferred to TCU. She was found to have hyponatremia. She was started on salt tablets which did not improve sodium much. She was given 1 dose of tolvaptan, sodium improved and she was discharged home. She had an appointment scheduled with me next week in office. Unfortunately came back with worsening weakness. She is currently alert, awake. Denies any breathing complaints. No urinary complaints. [facility] Medical History (Updated 12/05/24 @ 15:[address] Gagan Schulte MD) Ischemic cerebrovascular accident (CVA) Presbycusis History of rheumatic fever as a child Grade II diastolic dysfunction Intracranial epidural hematoma Cerebrovascular disease Mitral stenosis [...] 08/14/20 12/24/22 10:00 History mcg chewable tablet amiodarone 200 mg tablet 200 mg PO [...] 50 mg tablet 50 mg PO TID bp #90 tabs Unknown Rx levetiracetam 750 mg tablet 750 mg PO BID sezuire #60 tabs 11/27/24 Unknown Rx sodium chloride 1,000 mg soluble 1,000 mg PO TIDCM low sodium #90 11/27/24 Unknown Rx tablet tabs Allergy/AdvReac Type Severity Reaction Status Date / [...] Smoking Status: Never smoker alcohol intake: never Physical Exam Narrative Alert awake oriented x 3 no obvious distress no pallor no icterus no JVD s1s2 no murmurs lungs clear abdomen soft no organomegaly no edema no cyanosis Lab / Micro Data 12/05/24 04:56 12/05/24 11:56 Labs: Laboratory Results - last 24 hr 12/05/24 04:56: WBC 7.0, RBC 2.97 L, Hgb 9.8 L, Hct 27.4 L, MCV 92.3, MCH 33.0 H, MCHC 35.8, RDW Std Deviation 41.6, RDW Coeff of Marga 12.4, Plt Count 196, MPV 10.8, Sodium 126 L, Potassium 3.8, Chloride 94 L, Carbon Dioxide 21.8, Anion Gap11, BUN 13, Creatinine 0.60 L, Estim Creat Clear Calc 39.62 L, Est GFR (MDRD) Non-Af 90, BUN/Creatinine Ratio 21.2 H, Glucose 94, Calcium 8.5 12/05/24 11:56: Sodium 126 L, Potassium 4.0, Chloride 93 L, Carbon Dioxide 23.2,Anion Gap 10, BUN 16, Creatinine 0.69 L, Estim Creat Clear Calc 39.62 L, Est GFR(MDRD) Non-Af 87, BUN/Creatinine Ratio 22.7 H, Glucose 156 H, Calcium 8.8 Micro: Microbiology 12/03/24 20:10 Urine Catheter - Catheter Urine Culture - Preliminary Gram negative micah GPC Poss Enterococcus sp 12/05/24 1539 <Electronically signed by Gagan Schulte MD> Cosigner Signature (if applicable): CC: Dr. Monika Venegas MD; Dr. Darnell Gonzalez DO~ Signed [facility] Work Phone: 1(958) 954-135807-02-2025 Progress note Author Alix Hudson [facility] Note Date/Time December 05, 2024 1:53p [facility] Medical Records Department [address] [place] [address] Progress Note - Hospitalist 12/05/24 0834 MR#: [id number] Acct: [id number] Name: SARAH MCGUIRE Rep #:[id number] : 1945 79 From: Alix Hudson DO PCP: Dr. Monika Venegas MD Status:ADM TED Location: MS3 SO751-3 Reason for Visit Reason for Visit: Generalized weakness/falls Subjective Subjective Patient has no specific complaints other than being tired. She does states she did not sleep that well last night. I did explain her sodium has dropped and will probably have nephrology consult her after we give her some pulm apnea. Sodium this afternoon will be reassessed for stability. Patient states she is moving her bowels well and having no pain. Objective Data Objective Data Vital Signs: Vital Signs Temp Pulse Resp BP Pulse Ox O2 Del Method 98.1 F 70 18 148/42 H 97 Room Air 12/05/24 07:53 12/05/24 07:53 12/05/24 07:53 12/05/24 07:53 12/05/24 07:53 12/05/24 07:54 Oxygen Delivery Method Room Air Weight: 48.3 kg Body Mass Index (BMI) 23.9 Intake & Output: Intake and Output for Last 24 Hours 12/03/24 12/04/24 12/05/24 23:59 23:59 23:59 Intake Total 1050 / 1050 955.83 / 955.83 Output Total 500 / 900 900 / 900 Balance 1050 / 1050 455.83 / 55.83 -900 / -900 Lab / Micro Data 12/05/24 04:56 12/05/24 11:56 Labs: Laboratory Results - last 24 hr 12/05/24 04:56: WBC 7.0, RBC 2.97 L, Hgb 9.8 L, Hct 27.4 L, MCV 92.3, MCH 33.0 H, MCHC 35.8, RDW Std Deviation 41.6, RDW Coeff of Marga 12.4, Plt Count 196, MPV 10.8, Sodium 126 L, Potassium 3.8, Chloride 94 L, Carbon Dioxide 21.8, Anion Gap11, BUN 13, Creatinine 0.60 L, Estim Creat Clear Calc 39.62 L, Est GFR (MDRD) Non-Af 90, BUN/Creatinine Ratio 21.2 H, Glucose 94, Calcium 8.5 Physical Exam Const alert, oriented x3, no apparent distress, average body habitus and well nourished; Negative for healthy appearing Constitutional Narrative: Elderly, white female, lying in bed, appears somewhat frail but nontoxic General Appearance: cooperative HEENT normocephalic, head/scalp atraumatic, hearing grossly normal bilaterally and moist oral mucous membranes HEENT Narrative: Dentures in place, Mallampati 2, no thrush Resp normal respiratory effort, no retractions, no use of accessory muscles and clearto auscultation bilaterally Auscultation: Negative for rales, rhonchi or wheezes Cardio regular rate, regular rhythm, S1 normal heart sound, S2 normal heart sound, no murmurs, no rub, no gallops and no clicks GI normal to inspection, nondistended, normoactive bowel sounds, soft to palpation and non-tender Extremity no clubbing, cyanosis or edema Extremity Narrative: 2+ pedal and radial pulses Neuro oriented x3, moves all extremities and no focal motor deficits Neuro Narrative: Significant debility and generalized weakness noted, voice remains mildly tremulous Speech: Negative for speech normal Psych affect normal Psych Narrative: Affect is less flat today, eye contact is good and patient interacts appropriately Assessment & Plan Assessment/Plan (1) Ambulatory dysfunction: (2) Abnormal finding on urinalysis: (3) Falls: PLAN: Plan Generalized weakness/falls/ambulatory dysfunction - Recent admission to rehab from November 13 through November 27 - Patient fell actually getting into the house right after discharge - PT/OT following and recommending placement - Will likely need placement - Case management/social work involved Abnormal UA - Patient does have nitrites and bacteria but no white cells -CFU's are low counts between 25,000 and 50,000 and patient is asymptomatic -Will continue to hold off for antibiotics at this time - Follow cultures and if colony counts are markedly higher than they were previously or greater than threshold of 100,000 CFU per hpf we will start antibiotics likely with ciprofloxacin for 3 days - I am not convinced that this is a true urinary tract infection but rather bacteriuria at this point Recent subdural hematoma - Transferred to [facility] agree with [facility] for apixaban reversal - MRI at [facility] was unremarkable for new stroke - EEG was abnormal therefore started on Keppra 1 g twice daily and neurosurgery consulted for extradural fluid collection and recommended holding anticoagulation for least 2 weeks suspecting subdural hematoma from a fall she had previously - Apixaban has been initiated and will continue at this time - Monitor clinically Paroxysmal atrial fibrillation - Continue home amiodarone - Continue home apixaban SIADH - Continue sodium tablets 3 times daily - Continue fluid restriction of 1250 cc - Will give 1 dose of tolvaptan since sodium is down again today - Consult nephrology Essential hypertension/hyperlipidemia - Continue hydralazine - Continue atorvastatin Seizure disorder - Continue Keppra Chronic stage II diastolic dysfunction/chronic HFpEF - Patient is not on any chronic diuretics - Monitor clinically for signs of decompensation DVT prophylaxis - Continue apixaban CODE STATUS - Full code Disposition: - Anticipate discharge tomorrow as long as sodium remains stable Charges/Coding Visit Charges Inpatient E&M: 24717 Subs Hosp L2 NIHSS NIHSS Nursing Documentation NIHSS Nursing Documentation: NIH Stroke Scale Start: 12/03/24 17:36 Freq: Status: Discharge Protocol: Activity Type Activity Date Activity User E-sign Co-sign Detail Recorded Client Recorded Date Recorded By Document 12/03/24 17:36 DKM ... 12/03/24 17:37 DKM 12/03/24 17:36 NIH Stroke Scale [NIHSS] A score of 0 is normal or asymptomatic . Total possible score is 42. Inpatient: RN or Physician to activate a stroke alert for onset of new stroke symptoms or with NIHSS increase >/= 3 points. Following change in neurological status, NIHSS will be performed per physician order or more frequently PRN. -1a. Level of Consciousness 0 - Alert; keenly responsive -1b. LOC Questions 0 - Answers BOTH questions correctly -1c. LOC Commands 0 - Performs BOTH tasks correctly -2. Best Gaze 0 - Normal -3. Visual 0 - No visual loss -4. Facial Palsy 0 - Normal symmetrical movements -5a. Left Arm 0 - No drift; arm holds 90 ( or 45) degrees for full 10 seconds -5b. Right Arm 0 - No drift; arm holds 90 ( or 45) degrees for full 10 seconds -6a. Left Leg 0 - No drift; leg holds 30- degree position for full 5 seconds -6b. Right Leg 0 - No drift; leg holds 30- degree position for full 5 seconds -7. Limb Ataxia 0 - Absent -8. Sensory 0 - Normal; no sensory loss -9. Best Language 0 - No aphasia; normal -10. Dysarthria 0 - Normal -11. Extinction and Inattention 0 - No abnormality -Total 0 Query Text:A score of 0 is normal or asymptomatic. Total possible score is 42 . ED: Notify Physician for NIHSS increase by > / = 3 points. Inpatient: RN or Physician to activate a stroke alert for NIHSS increase of > / = 3 points. 12/05/24 1353 <Electronically signed by Alix Hudson DO> Cosigner Signature (if applicable): CC: ~ Signed [facility] Work Phone: 1(446) 261-878007-02-2025 Consult note [facility] Medical Records Department [address] [place] [address] Consultation - Nephrology 12/05/24 1534 MR#: [id number] Acct: [id number] Name: SARAH MCGUIRE Rep #:[id number] : 1945 79 From: Gagan astorga MD PCP: Dr. Monika Venegas MD Status:ADM TED Location: MS3 GG914-4 Assessment & Plan Assessment/Plan (1) Hyponatremia: PLAN: Recently admitted at rehab unit with hyponatremia. 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 Initiallywas placed on salt tablets, did not improve. Received a dose of tolvaptan which resulted in improvement. Unfortunately tolvaptan use asoutpatient is very restrictive, expensive. Will have to use salttablets at higher dose likely. HPI Consult Data Date of Consult: 12/05/24 HPI Narrative Reason for Consultation: hyponatremia HPI Narrative: SARAH MCGUIRE, is a 79 F who presents To the hospital with generalized weakness. She is well-known to us from recent admission at the rehab unit. Was recently admitted at [facility] with subdural fluid collection, subsequently was transferred to TCU. She was found to have hyponatremia. She was started on salt tablets which did not improve sodium much. She was given 1 dose of tolvaptan, sodium improved and she was discharged home. She had an appointment scheduled with me next week in office. Unfortunately came back with worsening weakness. She is currently alert, awake. Denies any breathing complaints. No urinary complaints. [facility] Medical History (Updated 12/05/24 @ 15:[address] Gagan Schulte MD) Ischemic cerebrovascular accident (CVA) Presbycusis History of rheumatic fever as a child Grade II diastolic dysfunction Intracranial epidural hematoma Cerebrovascular disease Mitral stenosis [...] 08/14/20 12/24/22 10:00 History mcg chewable tablet amiodarone 200 mg tablet 200 mg PO [...] 50 mg tablet 50 mg PO TID bp #90 tabs Unknown Rx levetiracetam 750 mg tablet 750 mg PO BID sezuire #60 tabs 11/27/24 Unknown Rx sodium chloride 1,000 mg soluble 1,000 mg PO TIDCM low sodium #90 11/27/24 Unknown Rx tablet tabs Allergy/AdvReac Type Severity Reaction Status Date / [...] Smoking Status: Never smoker alcohol intake: never Physical Exam Narrative Alert awake oriented x 3 no obvious distress no pallor no icterus no JVD s1s2 no murmurs lungs clear abdomen soft no organomegaly no edema no cyanosis Lab / Micro Data 12/05/24 04:56 12/05/24 11:56 Labs: Laboratory Results - last 24 hr 12/05/24 04:56: WBC 7.0, RBC 2.97 L, Hgb 9.8 L, Hct 27.4 L, MCV 92.3, MCH 33.0 H, MCHC 35.8, RDW Std Deviation 41.6, RDW Coeff of Marga 12.4, Plt Count 196, MPV 10.8, Sodium 126 L, Potassium 3.8, Chloride 94 L, Carbon Dioxide 21.8, Anion Gap11, BUN 13, Creatinine 0.60 L, Estim Creat Clear Calc 39.62 L, Est GFR (MDRD) Non-Af 90, BUN/Creatinine Ratio 21.2 H, Glucose 94, Calcium 8.5 12/05/24 11:56: Sodium 126 L, Potassium 4.0, Chloride 93 L, Carbon Dioxide 23.2,Anion Gap 10, BUN 16, Creatinine 0.69 L, Estim Creat Clear Calc 39.62 L, Est GFR(MDRD) Non-Af 87, BUN/Creatinine Ratio 22.7 H, Glucose 156 H, Calcium 8.8 Micro: Microbiology 12/03/24 20:10 Urine Catheter - Catheter Urine Culture - Preliminary Gram negative micah GPC Poss Enterococcus sp 12/05/24 1539 Cosigner Signature (if applicable): CC: Dr. Monika Venegas MD; Dr. Darnell Gonzalez DO~ Signed [facility]07-02-2025 Progress note [facility] Medical Records Department [address] [place] [address] Progress Note - Hospitalist 12/05/24 0834 MR#: [id number] Acct: [id number] Name: SARAH MCGUIRE Rep #:[id number] : 1945 79 From: Alix Hudson DO PCP: Dr. Monika Venegas MD Status:ADM TED Location: MS3 DC186-0 Reason for Visit Reason for Visit: Generalized weakness/falls Subjective Subjective Patient has no specific complaints other than being tired. She does states she did not sleep that well last night. I did explain her sodium has dropped and will probably have nephrology consult her after we give her some pulm apnea. Sodium this afternoon will be reassessed for stability. Patient states she is moving her bowels well and having no pain. Objective Data Objective Data Vital Signs: Vital Signs Temp Pulse Resp BP Pulse Ox O2 Del Method 98.1 F 70 18 148/42 H 97 Room Air 12/05/24 07:53 12/05/24 07:53 12/05/24 07:53 12/05/24 07:53 12/05/24 07:53 12/05/24 07:54 Oxygen Delivery Method Room Air Weight: 48.3 kg Body Mass Index (BMI) 23.9 Intake & Output: Intake and Output for Last 24 Hours 12/03/24 12/04/24 12/05/24 23:59 23:59 23:59 Intake Total 1050 / 1050 955.83 / 955.83 Output Total 500 / 900 900 / 900 Balance 1050 / 1050 455.83 / 55.83 -900 / -900 Lab / Micro Data 12/05/24 04:56 12/05/24 11:56 Labs: Laboratory Results - last 24 hr 12/05/24 04:56: WBC 7.0, RBC 2.97 L, Hgb 9.8 L, Hct 27.4 L, MCV 92.3, MCH 33.0 H, MCHC 35.8, RDW Std Deviation 41.6, RDW Coeff of Marga 12.4, Plt Count 196, MPV 10.8, Sodium 126 L, Potassium 3.8, Chloride 94 L, Carbon Dioxide 21.8, Anion Gap11, BUN 13, Creatinine 0.60 L, Estim Creat Clear Calc 39.62 L, Est GFR (MDRD) Non-Af 90, BUN/Creatinine Ratio 21.2 H, Glucose 94, Calcium 8.5 Physical Exam Const alert, oriented x3, no apparent distress, average body habitus and well nourished; Negative for healthy appearing Constitutional Narrative: Elderly, white female, lying in bed, appears somewhat frail but nontoxic General Appearance: cooperative HEENT normocephalic, head/scalp atraumatic, hearing grossly normal bilaterally and moist oral mucous membranes HEENT Narrative: Dentures in place, Mallampati 2, no thrush Resp normal respiratory effort, no retractions, no use of accessory muscles and clearto auscultation bilaterally Auscultation: Negative for rales, rhonchi or wheezes Cardio regular rate, regular rhythm, S1 normal heart sound, S2 normal heart sound, no murmurs, no rub, no gallops and no clicks GI normal to inspection, nondistended, normoactive bowel sounds, soft to palpation and non-tender Extremity no clubbing, cyanosis or edema Extremity Narrative: 2+ pedal and radial pulses Neuro oriented x3, moves all extremities and no focal motor deficits Neuro Narrative: Significant debility and generalized weakness noted, voice remains mildly tremulous Speech: Negative for speech normal Psych affect normal Psych Narrative: Affect is less flat today, eye contact is good and patient interacts appropriately Assessment & Plan Assessment/Plan (1) Ambulatory dysfunction: (2) Abnormal finding on urinalysis: (3) Falls: PLAN: Plan Generalized weakness/falls/ambulatory dysfunction - Recent admission to rehab from November 13 through November 27 - Patient fell actually getting into the house right after discharge - PT/OT following and recommending placement - Will likely need placement - Case management/social work involved Abnormal UA - Patient does have nitrites and bacteria but no white cells -CFU's are low counts between 25,000 and 50,000 and patient is asymptomatic -Will continue to hold off for antibiotics at this time - Follow cultures and if colony counts are markedly higher than they were previously or greater than threshold of 100,000 CFU per hpf we will start antibiotics likely with ciprofloxacin for 3 days - I am not convinced that this is a true urinary tract infection but rather bacteriuria at this point Recent subdural hematoma - Transferred to [facility] agree with [facility] for apixaban reversal - MRI at [facility] was unremarkable for new stroke - EEG was abnormal therefore started on Keppra 1 g twice daily and neurosurgery consulted for extradural fluid collection and recommended holding anticoagulation for least 2 weeks suspecting subduralhematoma from a fall she had previously - Apixaban has been initiated and will continue at this time - Monitor clinically Paroxysmal atrial fibrillation - Continue home amiodarone - Continue home apixaban SIADH - Continue sodium tablets 3 times daily - Continue fluid restriction of 1250 cc - Will give 1 dose of tolvaptan since sodium is down again today - Consult nephrology Essential hypertension/hyperlipidemia - Continue hydralazine - Continue atorvastatin Seizure disorder - Continue Keppra Chronic stage II diastolic dysfunction/chronic HFpEF - Patient is not on any chronic diuretics - Monitor clinically for signs of decompensation DVT prophylaxis - Continue apixaban CODE STATUS - Full code Disposition: - Anticipate discharge tomorrow as long as sodium remains stable Charges/Coding Visit Charges Inpatient E&M: 04621 Subs Hosp L2 NIHSS NIHSS Nursing Documentation NIHSS Nursing Documentation: NIH Stroke Scale Start: 12/03/24 17:36 Freq: Status: Discharge Protocol: Activity Type Activity Date Activity User E-sign Co-sign Detail Recorded Client Recorded Date Recorded By Document 12/03/24 17:36 DKM ... 12/03/24 17:37 DKM 12/03/24 17:36 NIH Stroke Scale [NIHSS] A score of 0 is normal or asymptomatic . Total possible score is 42. Inpatient: RN or Physician to activate a stroke alert for onset of new stroke symptoms or with NIHSS increase >/= 3 points. Following change in neurological status, NIHSS will be performed per physician order or more frequently PRN. -1a. Level of Consciousness 0 - Alert; keenly responsive -1b. LOC Questions 0 - Answers BOTH questions correctly -1c. LOC Commands 0 - Performs BOTH tasks correctly -2. Best Gaze 0 - Normal -3. Visual 0 - No visual loss -4. Facial Palsy 0 - Normal symmetrical movements -5a. Left Arm 0 - No drift; arm holds 90 ( or 45) degrees for full 10 seconds -5b. Right Arm 0 - No drift; arm holds 90 ( or 45) degrees for full 10 seconds -6a. Left Leg 0 - No drift; leg holds 30- degree position for full 5 seconds -6b. Right Leg 0 - No drift; leg holds 30- degree position for full 5 seconds -7. Limb Ataxia 0 - Absent -8. Sensory 0 - Normal; no sensory loss -9. Best Language 0 - No aphasia; normal -10. Dysarthria 0 - Normal -11. Extinction and Inattention 0 - No abnormality -Total 0 Query Text:A score of 0 is normal or asymptomatic. Total possible score is 42 . ED: Notify Physician for NIHSS increase by > / = 3 points. Inpatient: RN or Physician to activate a stroke alert for NIHSS increase of > / = 3 points. 12/05/24 1353 Cosigner Signature (if applicable): CC: ~ Signed [facility]07-01-2025 Progress note Author Alix Hudson [facility] Note Date/Time December 04, 2024 3:25p [facility] Medical Records Department [address] [place] [address] Progress Note - Hospitalist 12/04/24 0817 MR#: [id number] Acct: [id number] Name: SARAH MCGUIRE Rep #:[id number] : 1945 79 From: Alix Hudson DO PCP: Dr. Monika Venegas MD Status:ADM TED Location: MS3 IL261-6 Reason for Visit Reason for Visit: Weakness/falls Subjective Subjective Patient states that she was discharged from rehab and had difficulty pretty muchright away. She states she fell actually trying to get to the house. It looks like she had a urine culture here done on 11/25/2024 which grew Pseudomonas but colony counts were not significant. Repeat urine culture has been done however patient does not have a white count. She did not have any white cells in her urine. Objective Data Objective Data Vital Signs: Vital Signs Temp Pulse Resp BP Pulse Ox O2 Del Method 97.8 F 73 16 166/53 H 93 Room Air 12/04/24 05:30 12/04/24 07:58 12/04/24 05:30 12/04/24 05:38 12/04/24 07:45 12/04/24 07:45 Oxygen Delivery Method Room Air Weight: 48.5 kg Body Mass Index (BMI) 24.0 Intake & Output: Intake and Output for Last 24 Hours 12/02/24 12/03/24 12/04/24 23:59 23:59 23:59 Intake Total 1050 / 1050 Output Total 250 / 250 Balance 1050 / 1050 -250 / -250 Lab / Micro Data 12/04/24 06:41 12/04/24 06:41 Labs: Laboratory Results - last 24 hr 12/03/24 18:53: WBC 7.3, RBC 3.04 L, Hgb 10.0 L, Hct 28.2 L, MCV 92.8, MCH 32.9 H, MCHC 35.5, RDW Std Deviation 43.1, RDW Coeff of Marga 12.6, Plt Count 197, MPV 10.2, Immature Gran % (Auto) 0.700, Neut % (Auto) 80.3 H, Lymph % (Auto) 9.0 L, Dickens % (Auto) 9.6, Eos % (Auto) 0.1, Baso % (Auto) 0.3, Absolute Neuts (auto) 5.9, Absolute Lymphs (auto) 0.66 L, Nucleated RBC % 0, Sodium 133, Potassium 3.7, Chloride 100, Carbon Dioxide 22.8, Anion Gap 10, BUN 15, Creatinine 0.67 L,Estim Creat Clear Calc 39.62 L, Est GFR (MDRD) Non-Af 88, BUN/Creatinine Ratio 22.8 H, Glucose 106 H, Hemoglobin A1c 5.1, Calcium 8.8, Magnesium 1.9, Total Bilirubin 0.65, AST 104 H, ALT 282 H, Alkaline Phosphatase 104, Total Protein 5.8 L, Albumin 3.7, Globulin 2.1 L, Albumin/Globulin Ratio 1.8, Lipase 68, Vitamin B12 2668 H, Serum Folate 17.50, TSH 1.500 12/03/24 20:10: Urine Color Straw, Urine Clarity Clear, Urine pH 7.0, Ur Specific [place] 1.010, Urine Protein 15 H, Urine Glucose (UA) Normal, Urine Ketones 5 H, Urine Occult Blood Negative, Urine Nitrite Positive H, Urine Bilirubin Negative, Urine Urobilinogen Normal, Ur Leukocyte Esterase Negative, Urine RBC 0-5 SEEN, Urine WBC 0-5 SEEN, Ur Squamous Epith Cells 0 SEEN, Urine Bacteria 3+, Urine Mucus 0 SEEN 12/04/24 06:41: WBC 7.8, RBC 2.83 L, Hgb 9.4 L, Hct 26.0 L, MCV 91.9, MCH 33.2 H, MCHC 36.2 H, RDW Std Deviation 42.1, RDW Coeff of Marga 12.5, Plt Count 177, MPV9.8, Immature Gran % (Auto) 0.600, Neut % (Auto) 84.4 H, Lymph % (Auto) 6.8 L, Dickens % (Auto) 7.5, Eos % (Auto) 0.4, Baso % (Auto) 0.3, Absolute Neuts (auto) 6.6, Absolute Lymphs (auto) 0.53 L, Nucleated RBC % 0, Sodium 130 L, Potassium 3.7, Chloride 100, Carbon Dioxide 21.1, Anion Gap 9, BUN 13, Creatinine 0.63 L, Estim Creat Clear Calc 39.62 L, Est GFR (MDRD) Non-Af 89, BUN/Creatinine Ratio 20.2 H, Glucose 85, Calcium 8.2, Phosphorus 3.1, Total Bilirubin 0.57, AST 99 H,ALT 239 H, Alkaline Phosphatase 90, Total Protein 5.0 L, Albumin 3.2 L, Globulin1.8 L, Albumin/Globulin Ratio 1.8, Triglycerides 47, Cholesterol 124, LDL Cholesterol, Calc 58, VLDL Cholesterol 9, HDL Cholesterol 57, Cholesterol/HDL Ratio 2.19 Physical Exam Const alert, oriented x3, no apparent distress, average body habitus and well nourished; Negative for healthy appearing Constitutional Narrative: Elderly, white female, lying in bed, appears somewhat frail but nontoxic HEENT head/scalp atraumatic and moist oral mucous membranes HEENT Narrative: Mallampati 3, no thrush, dentures in place Head and Scalp: normocephalic Resp normal respiratory effort, no retractions, no use of accessory muscles and clearto auscultation bilaterally Auscultation: Negative for rales, rhonchi or wheezes Cardio regular rate, regular rhythm, S1 normal heart sound, S2 normal heart sound, no murmurs, no rub, no gallops and no clicks GI normal to inspection, nondistended, normoactive bowel sounds, soft to palpation and non-tender GI Narrative: No suprapubic tenderness present Extremity no clubbing, cyanosis or edema Extremity Narrative: 2+ pedal and radial pulses Neuro oriented x3, moves all extremities and no focal motor deficits Neuro Narrative: Significant debility and generalized weakness noted, voice is somewhat tremulous Speech: Negative for speech normal Psych Psych Narrative: Affect is slightly flat but patient makes good eye contact, answers questions and interacts appropriately Assessment & Plan Assessment/Plan (1) Ambulatory dysfunction: (2) Abnormal finding on urinalysis: (3) Falls: PLAN: Plan Generalized weakness/falls/ambulatory dysfunction - Recent admission to rehab from November 13 through November 27 - Patient fell actually getting into the house right after discharge - PT/OT consultation - Will likely need placement - Case management/social work involved Abnormal UA - Patient does have nitrites and bacteria but no white cells - She is not complaining of dysuria - Culture has been sent - Previous culture from 11/25/2024 shows Pseudomonas with little level CFU per high powered field not consistent with infection - Repeat cultures sent but will hold off on antibiotics at this time since she does not seem to be symptomatic - Follow cultures and if colony counts are markedly higher than they were previously or greater than threshold of 100,000 CFU per hpf we will start antibiotics likely with ciprofloxacin for 3 days Recent subdural hematoma - Transferred to [facility] agree with [facility] for apixaban reversal - MRI at [facility] was unremarkable for new stroke - EEG was abnormal therefore started on Keppra 1 g twice daily and neurosurgery consulted for extradural fluid collection and recommended holding anticoagulation for least 2 weeks suspecting subdural hematoma from a fall she had previously - Apixaban has been initiated and will continue at this time - Monitor clinically Paroxysmal atrial fibrillation - Continue home amiodarone - Continue home apixaban SIADH - Continue sodium - Fluid restriction of 1250 cc - Patient follows up outpatient with Dr. Schulte next-sodium is slightly low compared to admission we will continue to monitor with repeat lab in a.m. Essential hypertension/hyperlipidemia - Continue hydralazine - Continue atorvastatin Seizure disorder - Continue Keppra Chronic stage II diastolic dysfunction/chronic HFpEF - Patient is not on any chronic diuretics - Monitor clinically for signs of decompensation DVT prophylaxis - Continue apixaban CODE STATUS - Full code Disposition: - Patient is medically stable for discharge as of 12/04/2024 and accepting facility. Was declined by rehab Charges/Coding Visit Charges Inpatient E&M: 99866 Subs Hosp L2 NIHSS NIHSS Nursing Documentation NIHSS Nursing Documentation: NIH Stroke Scale Start: 12/03/24 17:36 Freq: Status: Discharge Protocol: Activity Type Activity Date Activity User E-sign Co-sign Detail Recorded Client Recorded Date Recorded By Document 12/03/24 17:36 DKM ... 12/03/24 17:37 DKM 12/03/24 17:36 NIH Stroke Scale [NIHSS] A score of 0 is normal or asymptomatic . Total possible score is 42. Inpatient: RN or Physician to activate a stroke alert for onset of new stroke symptoms or with NIHSS increase >/= 3 points. Following change in neurological status, NIHSS will be performed per physician order or more frequently PRN. -1a. Level of Consciousness 0 - Alert; keenly responsive -1b. LOC Questions 0 - Answers BOTH questions correctly -1c. LOC Commands 0 - Performs BOTH tasks correctly -2. Best Gaze 0 - Normal -3. Visual 0 - No visual loss -4. Facial Palsy 0 - Normal symmetrical movements -5a. Left Arm 0 - No drift; arm holds 90 ( or 45) degrees for full 10 seconds -5b. Right Arm 0 - No drift; arm holds 90 ( or 45) degrees for full 10 seconds -6a. Left Leg 0 - No drift; leg holds 30- degree position for full 5 seconds -6b. Right Leg 0 - No drift; leg holds 30- degree position for full 5 seconds -7. Limb Ataxia 0 - Absent -8. Sensory 0 - Normal; no sensory loss -9. Best Language 0 - No aphasia; normal -10. Dysarthria 0 - Normal -11. Extinction and Inattention 0 - No abnormality -Total 0 Query Text:A score of 0 is normal or asymptomatic. Total possible score is 42 . ED: Notify Physician for NIHSS increase by > / = 3 points. Inpatient: RN or Physician to activate a stroke alert for NIHSS increase of > / = 3 points. 12/04/24 1525 <Electronically signed by Alix Hudson DO> Cosigner Signature (if applicable): CC: ~ Signed [facility] Work Phone: 1(703) 307-945007-01-2025 Progress note [facility] Medical Records Department [address] [place] [id number] Progress Note - Hospitalist 12/04/24 0817 MR#: [id number] Acct: [id number] Name: SARAH MCGUIRE Rep #:[id number] : 1945 79 From: Alix Hudson DO PCP: Dr. Monika Venegas MD Status:ADM TED Location: MS3 BQ378-5 Reason for Visit Reason for Visit: Weakness/falls Subjective Subjective Patient states that she was discharged from rehab and had difficulty pretty muchright away. She states she fell actually trying to get to the house. It looks like she had a urine culture here done on11/25/2024 which grew Pseudomonas but colony counts were not significant. Repeat urine culture has been done however patient does not have a white count. She did not have any white cells in her urine. Objective Data Objective Data Vital Signs: Vital Signs Temp Pulse Resp BP Pulse Ox O2 Del Method 97.8 F 73 16 166/53 H 93 Room Air 12/04/24 05:30 12/04/24 07:58 12/04/24 05:30 12/04/24 05:38 12/04/24 07:45 12/04/24 07:45 Oxygen Delivery Method Room Air Weight: 48.5 kg Body Mass Index (BMI) 24.0 Intake & Output: Intake and Output for Last 24 Hours 12/02/24 12/03/24 12/04/24 23:59 23:59 23:59 Intake Total 1050 / 1050 Output Total 250 / 250 Balance 1050 / 1050 -250 / -250 Lab / Micro Data 12/04/24 06:41 12/04/24 06:41 Labs: Laboratory Results - last 24 hr 12/03/24 18:53: WBC 7.3, RBC 3.04 L, Hgb 10.0 L, Hct 28.2 L, MCV 92.8, MCH 32.9 H, MCHC 35.5, RDW Std Deviation 43.1, RDW Coeff of Marga 12.6, Plt Count 197, MPV 10.2, Immature Gran % (Auto) 0.700, Neut % (Auto) 80.3 H, Lymph % (Auto) 9.0 L, Dickens % (Auto) 9.6, Eos % (Auto) 0.1, Baso % (Auto) 0.3, Absolute Neuts (auto) 5.9, Absolute Lymphs (auto) 0.66 L, Nucleated RBC % 0, Sodium 133, Potassium 3.7,Chloride 100, Carbon Dioxide 22.8, Anion Gap 10, BUN 15, Creatinine 0.67 L,Estim Creat Clear Calc 39.62 L, Est GFR (MDRD) Non-Af 88, BUN/Creatinine Ratio 22.8 H, Glucose 106 H, Hemoglobin A1c 5.1, Calcium 8.8, Magnesium 1.9, Total Bilirubin 0.65, AST 104 H, ALT 282 H, Alkaline Phosphatase 104, Total Protein 5.8 L, Albumin 3.7, Globulin 2.1 L, Albumin/Globulin Ratio 1.8, Lipase 68, Vitamin B12 2668 H, Serum Folate 17.50, TSH 1.500 12/03/24 20:10: Urine Color Straw, Urine Clarity Clear, Urine pH 7.0, Ur Specific [place] 1.010, Urine Protein 15 H, Urine Glucose (UA) Normal, Urine Ketones 5 H, Urine Occult Blood Negative, Urine Nitrite Positive H, Urine Bilirubin Negative, Urine Urobilinogen Normal, Ur Leukocyte Esterase Negative, Urine RBC 0-5 SEEN, Urine WBC 0-5 SEEN, Ur Squamous Epith Cells 0 SEEN, Urine Bacteria 3+, UrineMucus 0 SEEN 12/04/24 06:41: WBC 7.8, RBC 2.83 L, Hgb 9.4 L, Hct 26.0 L, MCV 91.9, MCH 33.2 H, MCHC 36.2 H, RDW Std Deviation 42.1, RDW Coeff of Marga 12.5, Plt Count 177, MPV9.8, Immature Gran % (Auto) 0.600, Neut% (Auto) 84.4 H, Lymph % (Auto) 6.8 L, Dickens % (Auto) 7.5, Eos % (Auto) 0.4, Baso % (Auto) 0.3, Absolute Neuts (auto) 6.6, Absolute Lymphs (auto) 0.53 L, Nucleated RBC % 0, Sodium 130 L, Potassium 3.7, Chloride 100, Carbon Dioxide 21.1, Anion Gap 9, BUN 13, Creatinine 0.63 L, Estim Creat Clear Calc 39.62 L, Est GFR (MDRD) Non-Af 89, BUN/Creatinine Ratio 20.2 H, Glucose 85, Calcium 8.2, Phosphorus 3.1, Total Bilirubin 0.57, AST 99 H,ALT 239 H, Alkaline Phosphatase 90, Total Protein 5.0 L, Albumin3.2 L, Globulin1.8 L, Albumin/Globulin Ratio 1.8, Triglycerides 47, Cholesterol 124, LDL Cholesterol, Calc 58, VLDL Cholesterol 9, HDL Cholesterol 57, Cholesterol/HDL Ratio 2.19 Physical Exam Const alert, oriented x3, no apparent distress, average body habitus and well nourished; Negative for healthy appearing Constitutional Narrative: Elderly, white female, lying in bed, appears somewhat frail but nontoxic HEENT head/scalp atraumatic and moist oral mucous membranes HEENT Narrative: Mallampati 3, no thrush, dentures in place Head and Scalp: normocephalic Resp normal respiratory effort, no retractions, no use of accessory muscles and clearto auscultation bilaterally Auscultation: Negative for rales, rhonchi or wheezes Cardio regular rate, regular rhythm, S1 normal heart sound, S2 normal heart sound, no murmurs, no rub, no gallops and no clicks GI normal to inspection, nondistended, normoactive bowel sounds, soft to palpation and non-tender GI Narrative: No suprapubic tenderness present Extremity no clubbing, cyanosis or edema Extremity Narrative: 2+ pedal and radial pulses Neuro oriented x3, moves all extremities and no focal motor deficits Neuro Narrative: Significant debility and generalized weakness noted, voice is somewhat tremulous Speech: Negative for speech normal Psych Psych Narrative: Affect is slightly flat but patient makes good eye contact, answers questions and interacts appropriately Assessment & Plan Assessment/Plan (1) Ambulatory dysfunction: (2) Abnormal finding on urinalysis: (3) Falls: PLAN: Plan Generalized weakness/falls/ambulatory dysfunction - Recent admission to rehab from November 13 through November 27 - Patient fell actually getting into the house right after discharge - PT/OT consultation - Will likely need placement - Case management/social work involved Abnormal UA - Patient does have nitrites and bacteria but no white cells - She is not complaining of dysuria - Culture has been sent - Previous culture from 11/25/2024 shows Pseudomonas with little level CFU per high powered field not consistent with infection - Repeat cultures sent but will hold off on antibiotics at this time since she does not seem to be symptomatic - Follow cultures and if colony counts are markedly higher than they were previously or greater than threshold of 100,000 CFU per hpf we will start antibiotics likely with ciprofloxacin for 3 days Recent subdural hematoma - Transferred to [facility] agree with [facility] for apixaban reversal - MRI at [facility] was unremarkable for new stroke - EEG was abnormal therefore started on Keppra 1 g twice daily and neurosurgery consulted for extradural fluid collection and recommended holding anticoagulation for least 2 weeks suspecting subduralhematoma from a fall she had previously - Apixaban has been initiated and will continue at this time - Monitor clinically Paroxysmal atrial fibrillation - Continue home amiodarone - Continue home apixaban SIADH - Continue sodium - Fluid restriction of 1250 cc - Patient follows up outpatient with Dr. Schulte next-sodium is slightly low compared to admission we will continue to monitor with repeat lab in a.m. Essential hypertension/hyperlipidemia - Continue hydralazine - Continue atorvastatin Seizure disorder - Continue Keppra Chronic stage II diastolic dysfunction/chronic HFpEF - Patient is not on any chronic diuretics - Monitor clinically for signs of decompensation DVT prophylaxis - Continue apixaban CODE STATUS - Full code Disposition: - Patient is medically stable for discharge as of 12/04/2024 and accepting facility. Was declined by rehab Charges/Coding Visit Charges Inpatient E&M: 92505 Subs Hosp L2 NIHSS NIHSS Nursing Documentation NIHSS Nursing Documentation: NIH Stroke Scale Start: 12/03/24 17:36 Freq: Status: Discharge Protocol: Activity Type Activity Date Activity User E-sign Co-sign Detail Recorded Client Recorded Date Recorded By Document 12/03/24 17:36 DKM ... 12/03/24 17:37 DKM 12/03/24 17:36 NIH Stroke Scale [NIHSS] A score of 0 is normal or asymptomatic . Total possible score is 42. Inpatient: RN or Physician to activate a stroke alert for onset of new stroke symptoms or with NIHSS increase >/= 3 points. Following change in neurological status, NIHSS will be performed per physician order or more frequently PRN. -1a. Level of Consciousness 0 - Alert; keenly responsive -1b. LOC Questions 0 - Answers BOTH questions correctly -1c. LOC Commands 0 - Performs BOTH tasks correctly -2. Best Gaze 0 - Normal -3. Visual 0 - No visual loss -4. Facial Palsy 0 - Normal symmetrical movements -5a. Left Arm 0 - No drift; arm holds 90 ( or 45) degrees for full 10 seconds -5b. Right Arm 0 - No drift; arm holds 90 ( or 45) degrees for full 10 seconds -6a. Left Leg 0 - No drift; leg holds 30- degree position for full 5 seconds -6b. Right Leg 0 - No drift; leg holds 30- degree position for full 5 seconds -7. Limb Ataxia 0 - Absent -8. Sensory 0 - Normal; no sensory loss -9. Best Language 0 - No aphasia; normal -10. Dysarthria 0 - Normal -11. Extinction and Inattention 0 - No abnormality -Total 0 Query Text:A score of 0 is normal or asymptomatic. Total possible score is 42 . ED: Notify Physician for NIHSS increase by > / = 3 points. Inpatient: RN or Physician to activate a stroke alert for NIHSS increase of > / = 3 points. 12/04/24 1525 Cosigner Signature (if applicable): CC: ~ Signed [facility]07-01-2025 History and physical note Author Darnell Vera [facility] Note Date/Time December 04, 2024 5:43a m [facility] Medical Records Department [address] [place] [address] H&P Exam - Hospitalist 12/03/244 MR#: [id number] Acct: [id number] Name: SARAH MCGUIRE Rep #:[id number] : 1945 79 From: Darnell Spivey DO PCP: Dr. Monika Venegas MD Status:ADM TED Location: [place] [address] HPI - General General Date of Admission: 12/03/24 Date of Service: 12/03/24 Chief Complaint: Generalized Weakness. HPI Narrative SARAH MCGUIRE, is a 79 F with a past medical history of essential hypertension; on hydralazine 3 times daily, hyperlipidemia; on atorvastatin, history of paroxysmal atrial fibrillation; on amiodarone and apixaban, history of large meningioma; s/p resection at [facility] by Dr. Kincaid in December 2022, history of CVA, history of intracranial epidural hematoma; s/p craniotomy (2022), history of suspected seizures; on levetiracetam twice daily, history of hyponatremia; on sodium chloride 1 g p.o. 3 times daily, recent history of UTI history of pulmonary hypertension, history of rheumatic mitral stenosis, history of grade 2diastolic dysfunction, remote history of rheumatic fever as a child, OA and recent admission here to the rehabilitation unit under the care of Dr. Arias from November 13, 2024 to November 27, 2024 who presents to [facility] after initially presenting to [facility] ER on November 07, 2024 complaining of slurred speech over her baseline and difficulty ambulating with noncontrasted CT scan of the brain showing moderate-sized mixed density Left subdural fluid collection concerning for bleeding with patient then subsequentlytransferred to [facility]. She was treated with Kcentra in the ER to reverse her apixaban with MRI of the brain and MRA of the brain and neck showing no evidenceof new CVA. Neurology evaluated the patient and felt her history was highly suggestive of seizures although no epileptic discharges were captured on EEG. She had continuous left hemispheric polymorphic theta slow-wave activity indicative of a structural lesion over the left hemisphere in this area where she had a craniotomy in 2022 causing her to be started on levetiracetam 1 g twice daily. Neurosurgery was consulted for the extradural fluid collection andrecommended holding anticoagulation for at least 2 weeks with suspected subacuteon chronic extradural fluid collection related to a fall she had approximately 1month prior to presenting to the emergency department. Her carvedilol, doxazosin, hydrochlorothiazide and spironolactone were held but amiodarone was continued. She was transferred back to acute inpatient rehab on November 12, 2024 for 3 hours of therapy daily in an effort to restore function/independence to her previous baseline. Unfortunately, since returning home the patient has become progressively more generally weak for the past several days and has been shaky with her legs givingout on her periodically. She states that her sodium levels have been recently low so they have been fluid restricting her to 40 mL of water daily with patientinforming the ER provider there was a chance that she may not actually be drinking enough. She denies other complaints. Her daughter was present at the bedside and stating that she had otherwise been acting normally. There was no report of fever, chills, headaches, changes in vision, chest pain, palpitations,heart racing, shortness of breath, cough, abdominal pain, nausea, vomiting, diarrhea, constipation, dysuria, hematuria, back pain or rash. In the ER she was noted to have unremarkable laboratory studies including a normal serum sodium of 133 mmol/L present on admission with a normal glucose of 106 mg/dL annie UA positive for evidence of colonization but not acute infection. She was then diagnosed with Generalized Weakness with Ambulatory Dysfunction in the setting of recent suspected seizure activity due to moderate- sized mixed densityLeft subdural fluid collection recently evaluated at [facility]. She was then admittedto the general medical floor with telemetric monitoring under observation statusfor stay that is expected to be less than 2 midnights. [facility] Medical History (Updated 12/04/24 @ 01:[address] Darnell Gonzalez DO) Ischemic cerebrovascular accident (CVA) Presbycusis History of rheumatic fever as a child Grade II diastolic dysfunction Intracranial epidural hematoma Cerebrovascular disease Mitral stenosis [...] 08/14/20 12/24/22 10:00 History mcg chewable tablet amiodarone 200 mg tablet 200 mg PO [...] 50 mg tablet 50 mg PO TID bp #90 tabs Unknown Rx levetiracetam 750 mg tablet 750 mg PO BID sezuire #60 tabs 11/27/24 Unknown Rx sodium chloride 1,000 mg soluble 1,000 mg PO TIDCM low sodium #90 11/27/24 Unknown Rx tablet tabs Allergy/AdvReac Type Severity Reaction Status Date / Time No Known Allergies Allergy Verified 12/03/24 15:46 Family History Father CVA (cerebral vascular accident) Heart disease Mother Diabetes Surgical History H/O craniotomy Status post hemorrhoidectomy (~08/19/20) S/P carpal tunnel release S/P bilateral breast reduction S/P hysterectomy Social History household members: children and other details: DTLazaro Upton lives with her. housing: house current occupational status: retired Smoking Status: Never smoker alcohol intake: never ROS ROS Narrative Review of Systems: Constitutional: Patient admits to generalized weakness but she denies fever or chills. Eyes: Patient denies changes in vision or discharge from eyes. ENT: Patient denies runny nose, sore throat or ear pain. Resp: Patient denies shortness of breath or cough. GI: Patient denies abdominal pain, nausea, vomiting, diarrhea or constipation. : Patient denies dysuria or hematuria. MSK: Patient admits to generalized weakness with ambulatory dysfunction and shakiness in her legs occasionally giving out as per HPI. Skin: Patient denies rash, abscess, wounds or jaundice. Psych: Patient denies symptoms of uncontrolled depression or anxiety. Neuro: Patient denies headache, paresthesias or focal neurologic deficits. Allergy: Patient denies lip swelling, tongue swelling or urticaria. Hematology: Patient admits to easy bleeding and easy bruising on apixaban. Endocrinology: Patient denies polyuria, polydipsia, polyphagia or heat/cold intolerance. 14 point ROS otherwise negative except for positives noted above in HPI. Vital Signs Vital Signs Vital Signs: 12/03/24 15:46 12/03/24 17:28 12/03/24 [...] Oxygen Delivery Method Room Air Weight Weight: 109 lb 2.061 oz Body Mass Index (BMI) 25.3 Physical Exam Const alert, oriented x3, no apparent distress and average body habitus General Appearance: cooperative HEENT normocephalic, head/scalp atraumatic, hearing grossly normal bilaterally and moist oral mucous membranes Eyes PERRL, EOMs intact bilaterally and conjunctivae normal Neck no lymphadenopathy and supple Resp normal respiratory effort, no retractions, no use of accessory muscles and clearto auscultation bilaterally Cardio regular rate and regular rhythm GI normal to inspection, nondistended, normoactive bowel sounds, soft to palpation,non-tender and non-distended Extremity normal to inspection, full ROM and no clubbing, cyanosis or edema Skin Skin Narrative: Patient has evidence of rash, abscess, wounds or jaundice. Neuro oriented x3, CN's II-XII intact bilaterally, moves all extremities and no focal motor deficits Sensorium / Orientation: awake, alert, oriented to person, oriented to place andoriented to time Speech: speech normal Psych affect normal Results Medical Records Data Attestation: I reviewed the patient's medical records Lab / Micro Data Attestation: I reviewed the patient's lab results. 12/03/24 18:53 12/03/24 18:53 Labs: Laboratory Results - last 24 hr 12/03/24 18:53: WBC 7.3, RBC 3.04 L, Hgb 10.0 L, Hct 28.2 L, MCV 92.8, MCH 32.9 H, MCHC 35.5, RDW Std Deviation 43.1, RDW Coeff of Marga 12.6, Plt Count 197, MPV 10.2, Immature Gran % (Auto) 0.700, Neut % (Auto) 80.3 H, Lymph % (Auto) 9.0 L, Dickens % (Auto) 9.6, Eos % (Auto) 0.1, Baso % (Auto) 0.3, Absolute Neuts (auto) 5.9, Absolute Lymphs (auto) 0.66 L, Nucleated RBC % 0, Sodium 133, Potassium 3.7, Chloride 100, Carbon Dioxide 22.8, Anion Gap 10, BUN 15, Creatinine 0.67 L,Estim Creat Clear Calc 39.62 L, Est GFR (MDRD) Non-Af 88, BUN/Creatinine Ratio 22.8 H, Glucose 106 H, Calcium 8.8, Total Bilirubin 0.65, AST 104 H, ALT 282 H, Alkaline Phosphatase 104, Total Protein 5.8 L, Albumin 3.7, Globulin 2.1 L, Albumin/Globulin Ratio 1.8, Lipase 68 12/03/24 20:10: Urine Color Straw, Urine Clarity Clear, Urine pH 7.0, Ur Specific [place] 1.010, Urine Protein 15 H, Urine Glucose (UA) Normal, Urine Ketones 5 H, Urine Occult Blood Negative, Urine Nitrite Positive H, Urine Bilirubin Negative, Urine Urobilinogen Normal, Ur Leukocyte Esterase Negative, Urine RBC 0-5 SEEN, Urine WBC 0-5 SEEN, Ur Squamous Epith Cells 0 SEEN, Urine Bacteria 3+, Urine Mucus 0 SEEN Assessment & Plan Assessment/Plan (1) Generalized weakness: (2) Ambulatory dysfunction: (3) History of subdural hematoma: (4) Intracranial epidural hematoma: (5) Ischemic cerebrovascular accident (CVA): (6) Seizure disorder: (7) Anticoagulant long-term use: PLAN: Plan 1. Generalized Weakness with Ambulatory Dysfunction - Admit to general medical floor under observation status. PT/OT and Case Management consult and treat on rounds in a.m. further recommendations regarding possible ECF placement with help appreciated in advance. Give acetaminophen prn for pain or fever. 2. Recent admission here to the rehabilitation unit under the care of Dr. Arias from November 13, 2024 to November 27, 2024 who presents to [facility] after initially presenting to [facility] ER on November 07, 2024 complaining of slurred speech over her baseline and difficulty ambulating with noncontrasted CT scan of the brain showing moderate-sized mixed density Left subdural fluid collection concerning for bleeding with patient then subsequently transferred to [facility]. She was treated with Kcentra in the ER to reverse her apixaban with MRI of the brain and MRA of the brain and neck showingno evidence of new CVA. Neurology evaluated the patient and felt her history was highly suggestive of seizures although no epileptic discharges were capturedon EEG. She had continuous Left hemispheric polymorphic theta slow-wave activity indicative of a structural lesion over the Left hemisphere in this areawhere she had a craniotomy in 2022 causing her to be started on levetiracetam 1 g twice daily. Neurosurgery was consulted for the extradural fluid collection and recommended holding anticoagulation for at least 2 weeks with suspected subacute on chronic extradural fluid collection related to a fall she had approximately 1 month prior to presenting to the emergency department complicating #1 - Noted with patient likely in need of ECF for subacute rehabilitation. 3. History of large meningioma; s/p resection at [facility] by Dr. Kincaid in December 2022 adding to the medical complexity of #1 & #2 - Noted. 4. History of intracranial epidural hematoma; s/p craniotomy (2022) - Noted. 5. History of CVA - Noted. 6. History of paroxysmal atrial fibrillation; on amiodarone and apixaban addingto the burden of disease outlined from #1 - #4 - Maintain current therapy. 7. Essential hypertension; on hydralazine 3 times daily - Maintain hydralazine as previous. 8. Hyperlipidemia; on atorvastatin - Hold statin in case of myotoxicity contributing to #1. 9. History of hyponatremia; on sodium chloride 1 g p.o. 3 times daily - Stable with serum sodium of 133 mmol/L present on admission. 10. Recent history of UTI - Noted with UA positive for colonization and not acute infection at time of admission. 11. History of pulmonary hypertension - Noted. 12. History of rheumatic mitral stenosis - Noted. 13. History of grade 2 diastolic dysfunction - Stable. 14. Remote history of rheumatic fever as a child - Noted. 15. OA - We hattie give acetaminophen prn as outlined in #1. 16. DVT prophylaxis - Patient already on apixaban for #6 which will be continued. Total time: Approximately (but not less than) 70 minutes. Charges/Coding Visit Charges OBSV E&M: 31808 Observ/hosp same date L2 12/04/24 0543 <Electronically signed by Darnell Gonzalez DO> Cosigner Signature (if applicable): CC: Dr. Monika Venegas MD; Dr. Darnell Gonzalez DO~ Signed [facility] Work Phone: [phone] 738-832207-01-2025 History and physical note [facility] Medical Records Department [address] [place] [address] H&P Exam - Hospitalist 12/03/24 2224 MR#: [id number] Acct: [id number] Name: SARAH MCGUIRE Rep #:[id number] : 1945 79 From: Darnell Spivey DO PCP: Dr. Monika Venegas MD Status:ADM [facility]ED [facility] - General General Date of Admission: 12/03/24 Date of Service: 12/03/24 Chief Complaint: Generalized Weakness. HPI Narrative SARAH MCGUIRE, is a 79 F with a past medical history of essential hypertension; on hydralazine 3 times daily, hyperlipidemia; on atorvastatin, history of paroxysmal atrial fibrillation; on amiodarone andapixaban, history of large meningioma; s/p resection at [facility] by Dr. Kincaid in December 2022, history of CVA, history of intracranial epidural hematoma; s/p craniotomy (2022), history of suspected seizures;on levetiracetam twice daily, history of hyponatremia; on sodium chloride 1 g p.o. 3 times daily, recent history of UTI history of pulmonary hypertension, history of rheumatic mitral stenosis, history of grade 2diastolic dysfunction, remote history of rheumatic fever as a child, OA and recent admission here to the rehabilitation unit under the care of Dr. Arias from November 13, 2024 to November 27, 2024 who presents to [facility] after initially presenting to [facility] ER on November 07, 2024 complaining of slurred speech over her baseline and difficulty ambulating with noncontrasted CT scan of the brain showing moderate-sized mixed density Left subdural fluid collection concerning for bleeding with patient then subsequentlytransferred to [facility]. She was treated with Kcentra in the ER to reverse her apixaban with MRI of the brain and MRA of the brain and neck showing no evidenceof new CVA. Neurology evaluated the patient and felt her history was highly suggestive of seizures although no epileptic discharges were captured on EEG. She had continuous left hemispheric polymorphic theta slow-wave activity indicative of a structural lesion over the left hemisphere inthis area where she had a craniotomy in 2022 causing her to be started on levetiracetam 1 g twice daily. Neurosurgery was consulted for the extradural fluid collection andrecommended holding anticoagulation for at least 2 weeks with suspected subacuteon chronic extradural fluid collection related to a fall she had approximately 1month prior to presenting to the emergency department. Her carvedilol, doxazosin, hydrochlorothiazide and spironolactone were held but amiodarone was continued. She wastransferred back to acute inpatient rehab on November 12, 2024 for 3 hours of therapy daily in an effortto restore function/independence to her previous baseline. Unfortunately, since returning home the patient has become progressively more generally weak for the past several days and has been shaky with her legs givingout on her periodically. She states that her sodium levels have been recently low so they have been fluid restricting her to 40 mL of water daily with patientinforming the ER provider there was a chance that she may not actually be drinking enough. She denies other complaints. Her daughter was present at the bedside and stating that she had otherwise been acting normally. There was no report of fever, chills, headaches, changes in vision, chest pain, palpitations,heart racing, shortness of breath, cough, abdominal pain, nausea, vomiting, diarrhea, constipation, dysuria, hematuria, back pain or rash. In the ER she was noted to have unremarkable laboratory studies including a normal serum sodium of 133 mmol/L present on admission with a normal glucose of 106 mg/dL annie UA positive for evidence of colonization but not acute infection. She was then diagnosed with Generalized Weakness with Ambulatory Dysfunction in the setting of recent suspected seizure activity due to moderate-sized mixed densityLeft subdural fluid collection recently evaluated at [facility]. She was then admittedto the general medical floor with telemetric monitoring under observation statusfor stay that is expected to be less than 2 midnights. [facility] Medical History (Updated 12/04/24 @ 01:[address] Darnell Gonzalez, DO) Ischemic cerebrovascular accident (CVA) Presbycusis History of rheumatic fever as a child Grade II diastolic dysfunction Intracranial epidural hematoma Cerebrovascular disease Mitral stenosis [...] 08/14/20 12/24/22 10:00 History mcg chewable tablet amiodarone 200 mg tablet 200 mg PO DAILY heart #90 TA BLETS 12/12/23 11/12/24 08:30 Rx atorvastatin 10 mg tablet 10 mg PO QHS for cholesterol #90 12/12/23 11/11/24 21:08 Rx TABLETS apixaban 2.5 mg tablet 2.5 mg PO BID called to Disc ount 03/10/25 04/24/25 Rx [facility]180 tabs acetaminophen 325 mg capsule 325 mg PO Q4H PRN pain 11/12/24 13:15 History hydralazine 50 mg tablet 50 mg PO TID bp #90 tabs Unknown Rx levetiracetam 750 mg tablet 750 mg PO BID [facility] #60 tabs 11/27/24 Unknown Rx sodium chloride 1,000 mg soluble 1,000 mg PO TIDCM low sodium #90 11/27/24 Unknown Rx tablet tabs Allergy/AdvReac Type Severity Reaction Status Date / Time No Known Allergies Allergy Verified 12/03/24 15:46 Family History Father CVA (cerebral vascular accident) Heart disease Mother Diabetes Surgical History H/O craniotomy Status post hemorrhoidectomy (~08/19/20) S/P carpal tunnel release S/P bilateral breast reduction S/P hysterectomy Social History household members: children and other details: DTLazaro Upton lives with her. housing: house current occupational status: retired Smoking Status: Never smoker alcohol intake: never ROS ROS Narrative Review of Systems: Constitutional: Patient admits to generalized weakness but she denies fever or chills. Eyes: Patient denies changes in vision or discharge from eyes. ENT: Patient denies runny nose, sore throat or ear pain. Resp: Patient denies shortness of breath or cough. GI: Patient denies abdominal pain, nausea, vomiting, diarrhea or constipation. : Patient denies dysuria or hematuria. MSK: Patient admits to generalized weakness with ambulatory dysfunction and shakiness in her legs occasionally giving out as per HPI. Skin: Patient denies rash, abscess, wounds or jaundice. Psych: Patient denies symptoms of uncontrolled depression or anxiety. Neuro: Patient denies headache, paresthesias or focal neurologic deficits. Allergy: Patient denies lip swelling, tongue swelling or urticaria. Hematology: Patient admits to easy bleeding and easy bruising on apixaban. Endocrinology: Patient denies polyuria, polydipsia, polyphagia or heat/cold intolerance. 14 point ROS otherwise negative except for positives noted above in HPI. Vital Signs Vital Signs Vital Signs: 12/03/24 15:46 12/03/24 17:28 12/03/24 [...] Oxygen Delivery Method Room Air Weight Weight: 109 lb 2.061 oz Body Mass Index (BMI) 25.3 Physical Exam Const alert, oriented x3, no apparent distress and average body habitus General Appearance: cooperative HEENT normocephalic, head/scalp atraumatic, hearing grossly normal bilaterally and moist oral mucous membranes Eyes PERRL, EOMs intact bilaterally and conjunctivae normal Neck no lymphadenopathy and supple Resp normal respiratory effort, no retractions, no use of accessory muscles and clearto auscultation bilaterally Cardio regular rate and regular rhythm GI normal to inspection, nondistended, normoactive bowel sounds, soft to palpation,non-tender and non-distended Extremity normal to inspection, full ROM and no clubbing, cyanosis or edema Skin Skin Narrative: Patient has evidence of rash, abscess, wounds or jaundice. Neuro oriented x3, CN's II-XII intact bilaterally, moves all extremities and no focal motor deficits Sensorium / Orientation: awake, alert, oriented to person, oriented to place andoriented to time Speech: speech normal Psych affect normal Results Medical Records Data Attestation: I reviewed the patient's medical records Lab / Micro Data Attestation: I reviewed the patient's lab results. 12/03/24 18:53 12/03/24 18:53 Labs: Laboratory Results - last 24 hr 12/03/24 18:53: WBC 7.3, RBC 3.04 L, Hgb 10.0 L, Hct 28.2 L, MCV 92.8, MCH 32.9 H, MCHC 35.5, RDW Std Deviation 43.1, RDW Coeff of Marga 12.6, Plt Count 197, MPV 10.2, Immature Gran % (Auto) 0.700, Neut % (Auto) 80.3 H, Lymph % (Auto) 9.0 L, Dickens % (Auto) 9.6, Eos % (Auto) 0.1, Baso % (Auto) 0.3, Absolute Neuts (auto) 5.9, Absolute Lymphs (auto) 0.66 L, Nucleated RBC % 0, Sodium 133, Potassium 3.7,Chloride 100, Carbon Dioxide 22.8, Anion Gap 10, BUN 15, Creatinine 0.67 L,Estim Creat Clear Calc 39.62 L, Est GFR (MDRD) Non-Af 88, BUN/Creatinine Ratio 22.8 H, Glucose 106 H, Calcium 8.8, Total Bilirubin 0.65, AST 104 H, ALT 282 H, Alkaline Phosphatase 104, Total Protein 5.8 L, Albumin 3.7, Globulin 2.1 L, Albumin/Globulin Ratio 1.8, Lipase 68 06/30/25 20:10: Urine Color Straw, Urine Clarity Clear, Urine pH 7.0, Ur Specific [place] 1.010, Urine Protein 15 H, Urine Glucose (UA) Normal, Urine Ketones 5 H, Urine Occult Blood Negative, Urine Nitrite Positive H, Urine Bilirubin Negative, Urine Urobilinogen Normal, Ur Leukocyte Esterase Negative, Urine RBC 0-5 SEEN, Urine WBC 0-5 SEEN, Ur Squamous Epith Cells 0 SEEN, Urine Bacteria 3+, UrineMucus 0 SEEN Assessment & Plan Assessment/Plan (1) Generalized weakness: (2) Ambulatory dysfunction: (3) History of subdural hematoma: (4) Intracranial epidural hematoma: (5) Ischemic cerebrovascular accident (CVA): (6) Seizure disorder: (7) Anticoagulant long-term use: PLAN: Plan 1. Generalized Weakness with Ambulatory Dysfunction - Admit to general medical floor under observation status. PT/OT and Case Management consult and treat on rounds in a.m. further recommendations regarding possible ECF placement with help appreciated in advance. Give acetaminophen prn for pain or fever. 2. Recent admission here to the rehabilitation unit under the care of Dr. Arias from November 13, 2024 to November 27, 2024 who presents to [facility] after initially presenting to [facility] ER on November 07, 2024 complaining of slurred speech over her baseline and difficultyambulating with noncontrasted CT scan of the brain showing moderate-sized mixed density Left subdural fluid collection concerning for bleeding with patient then subsequently transferred to [facility]. She was treated with Kcentra in the ER to reverse her apixaban with MRI of the brain and MRA of the brainand neck showingno evidence of new CVA. Neurology evaluated the patient and felt her history was highly suggestive of seizures although no epileptic discharges were capturedon EEG. She had continuousLeft hemispheric polymorphic theta slow-wave activity indicative of a structural lesion over the Left hemisphere in this areawhere she had a craniotomy in 2022 causing her to be started on levetiracet am 1 g twice daily. Neurosurgery was consulted for the extradural fluid collection and recommended holding anticoagulation for at least 2 weeks with suspected subacute on chronic extradural fluid collection related to a fall she had approximately 1 month prior to presenting to the emergency department complicating #1 - Noted with patient likely in need of ECF for subacute rehabilitation. 3. History of large meningioma; s/p resection at [facility] by Dr. Kincaid in December 2022 adding to the medical complexity of #1 & #2 - Noted. 4. History of intracranial epidural hematoma; s/p craniotomy (2022) - Noted. 5. History of CVA - Noted. 6. History of paroxysmal atrial fibrillation; on amiodarone and apixaban addingto the burden of disease outlined from #1 - #4 - Maintain current therapy. 7. Essential hypertension; on hydralazine 3 times daily - Maintain hydralazine as previous. 8. Hyperlipidemia; on atorvastatin - Hold statin in case of myotoxicity contributing to #1. 9. History of hyponatremia; on sodium chloride 1 g p.o. 3 times daily - Stable with serum sodium of133 mmol/L present on admission. 10. Recent history of UTI - Noted with UA positive for colonization and not acute infection at timeof admission. 11. History of pulmonary hypertension - Noted. 12. History of rheumatic mitral stenosis - Noted. 13. History of grade 2 diastolic dysfunction - Stable. 14. Remote history of rheumatic fever as a child - Noted. 15. OA - We hattie give acetaminophen prn as outlined in #1. 16. DVT prophylaxis - Patient already on apixaban for #6 which will be continued. Total time: Approximately (but not less than) 70 minutes. Charges/Coding Visit Charges OBSV E&M: 99634 Observ/hosp same date L2 12/04/24 0543 Cosigner Signature (if applicable): CC: Dr. Monika Venegas MD; Dr. Darnell Gonzalez DO~ Signed [facility]07-01-2025 Discharge summary Author Hayden Sadler [facility] Note Date/Time December 03, 2024 10:2 5pm [facility] Medical Records Department [address] [place] [address] Emergency Department Summary 12/03/24 MR#: [id number] Acct: [id number] Name: SARAH MCGUIRE Rep #:[id number] : 1945 79 From: Hayden Sadler DO [...] she has been acting her normal self [facility] Medical History Presbycusis History of rheumatic [...] History household members: children and other details: DTLazaro Upton lives with her. housing: house current [...] follow commands knew that she was at [facility]. NIH of 0 GCS 15 Skin: [...] 80.3 H Lymph % (Auto) 9.0 L Dickens % (Auto) 9.6 Eos % (Auto) 0.1 [...] Clarity Clear Urine pH 7.0 Ur Specific [place] 1.010 Urine Protein 15 H Urine Glucose [...] MD [Primary Care Provider] - Print Language: Ethiopian Disposition Disposition: Acute Care Hospital [facility] What to do if you have Problems For any increased pain, shortness of breath, bleeding, nausea or vomiting, chestpain, or any unexpected problems, contact your Primary Care Provider. Call [facility] ([phone]) or report to the closest Emergency Room. Call 911 if necessary. 12/03/242224 <Electronically signed by Hayden Sadler DO> Cosigner Signature (if applicable): CC: Dr. Monika Venegas MD ~ Signed [facility] Work Phone: 1(134) 488-152206-30-2025 Discharge summary [facility] Medical Records Department [address] [place] [address] Emergency Department Summary 12/03/24 MR#: [id number] Acct: [id number] Name: SARAH MCGUIRE Rep #:[id number] : 1945 79 From: Hayden Sadler DO [...] been low and they have been restricting herto 40 mL of water daily which they have been hearing to and she states in fact there is a chance that she is actually not drinking enough. They deny other complaints. Daughter at bedside states that she has been acting her normal self [facility] Medical History Presbycusis History of rheumatic [...] follow commands knew that she was at [facility]. NIH of 0 GCS 15 Skin: [...] 80.3 H Lymph % (Auto) 9.0 L Dickens % (Auto) 9.6 Eos % (Auto) 0.1 [...] Clarity Clear Urine pH 7.0 Ur Specific [place] 1.010 Urine Protein 15 H Urine Glucose [...] MD [Primary Care Provider] - Print Language: Ethiopian Disposition Disposition: Acute Care Hospital [facility] What to do if you have Problems For any increased pain, shortness of breath, bleeding, nausea or vomiting, chestpain, or any unexpected problems, contact your Primary Care Provider. Call [facility] ([phone]) or report tothe closest Emergency Room. Call 911 if necessary. 12/03/242224 Cosigner Signature (if applicable): CC: Dr. Monika Venegas MD ~ Signed [facility]06-30-2025 Discharge summary Author Hayden Sadler [facility] Note Date/Time December 03, 2024 10:2 5pm [facility] Medical Records Department [address] [place] [address] Emergency Department Summary 12/03/24 MR#: [id number] Acct: [id number] Name: SARAH MCGUIRE Rep #:[id number] : 1945 79 From: Hayden Sadler DO [...] she has been acting her normal self [facility] Medical History Presbycusis History of rheumatic fever [...] follow commands knew that she was at [facility]. NIH of 0 GCS 15 Skin: [...] 80.3 H Lymph % (Auto) 9.0 L Dickens % (Auto) 9.6 Eos % (Auto) 0.1 [...] Clarity Clear Urine pH 7.0 Ur Specific [place] 1.010 Urine Protein 15 H Urine Glucose [...] MD [Primary Care Provider] - Print Language: Ethiopian Disposition Disposition: Acute Care Hospital [facility] What to do if you have Problems For any increased pain, shortness of breath, bleeding, nausea or vomiting, chestpain, or any unexpected problems, contact your Primary Care Provider. Call [facility] ([phone]) or report to the closest Emergency Room. Call 911 if necessary. 12/03/24 0936 <Electronically signed by Hayden Sadler DO> Cosigner Signature (if applicable): CC: Dr. Monika Venegas MD ~ Signed [facility] Work Phone: 1(723) 110-373506-26-2025 Discharge summary Author Jo-Ann Arias [facility] Note Date/Time November 29, 2024 10:1 1am [facility] Medical Records Department [address] [place] [address] Instructions for Home/Discharge Instructions 11/27/24 1602 MR#: [id number] Acct: [id number] Name: SARAH MCGUIRE Rep #:[id number] : 1945 79 From: Jo-Ann Arias DO [...] drug) to 750 mg twice a day [id number] mg twice a day. You had an EEG at [facility] and it was negative for seizure. You will need to follow up with a neurologist. [place] and his name is Dr. Melchor. He [...] sodium up they have to see a crew member(kidney doctor) to help manage the medications. I [...] prevent strokes due to atrial fibrillation(AFIB). OFFICE: [phone] CELL: [phone] NURSES STATION ON REHAB: [phone] Discharge Orders/Prescriptions Prescriptions: New hydralazine 50 mg [...] mg PO BID Referrals / Follow Up: [facility] [Other] - 11/28/24 12:00 pm Monika Venegas MD [Primary Care Provider] - 12/12/24 11:00 pm Disposition Disposition (needs filled in before D/C Order can be placed): Home Health Service 11/27/24 1302<Electronically signed by Jo-Ann Arias DO>Jo-Ann Arias DO [...] She is going to have HHC [place]. SW is going to arrange for to follow progress toward healing at home. she is to roll from side to side and not have prolongedlying on her back and sitting in the chair without getting up to walk. Will also have [facility] draw a BMP in 1 week. [...] MD; Dr. Gibson Yang MD ~* Signed [facility] Work Phone: 1(431) 445-263106-26-2025 Discharge summary [facility] Medical Records Department [address] [place] [address] Discharge Summary 11/27/24 1647 MR#: [id number] Acct: [id number] Name: SARAH MCGUIRE Rep #:[id number] : 1945 79 From: Jo-Ann Arias DO PCP: Dr. Monika Venegas MD Status:ADM [place] Location: [place] [address] Providers Date of Admission: 11/12/24 Date of Discharge: 11/28/24 Primary Care Physician: Dr. Monika Venegas MD Consultations 11/28/24 12:17 Consult: Nephrology Routine Consulting Provider: [facility] Reason for Consult: hyponatremia with hx SIADH [...] long-term use: Status: Chronic Code(s): Z79.01 - director long term care (current) use of anticoagulants Plan: Continue Eliquis 2.5 mg BID. (8) Bradycardia, sinus: Status: Inactive Code(s): R00.1 - Bradycardia, unspecified Plan: Resolved with the4 discontinuation of Coreg. HR is WNL on Amiodarone 200 mg daily. (9) director long term care current use of amiodarone: Status: Chronic Code(s): Z79.899 - Other intermediate (current) drug therapy (10) High cholesterol: Status: [...] will follow up with Dr. Schulte post On license of [facility] rehab. (17) Presbycusis: Status: Chronic Code(s): H91.10 [...] 2 Plan: Mepilex applied and will have [facility] at [place] with to follow the ulcer to healing. Will [...] anxiety treated. Plan 1. DC home with [facility]. BMP in 1 week. C to draw. 2. Continue Mepilex to the decubitus ulcer [facility] SN will follow 3. BMP in [...] tablet 2.5 mg PO BID called to [facility]180 tabs 08/13/24 acetaminophen 325 mg [...] who presented to the emergency department at [facility] on 11/07/2024 complaining of increased slurred [...] to presenting to the emergency department at [facility]. Coreg was held for bradycardia but, [...] [facility] and acute rehab was recommended [place]. She was transferred to the acute in rehab unit at [facility] on 11/12/24 for 3 hours of therapy [...] came up to 134. When the sodium [id number] the BUN was 32 with a creatinine [...] a BMP done in 1 week post [place]....[facility] to draw and send results to [...] to follow up with Dr. Melchor post [place] from rehab. HR is WNL on Amiodarone 200 mg daily with no tachycardia. She has not beenbradycardic. Sarah was discharged home with her daughter Alexsandra on 11/29/2024 and will have [facility] home health care. Will have home [...] drug) to 750 mg twice a day [id number] mg twice a day. You had an [...] sodium up they have to see a crew member(kidney doctor) to help manage themedications. I would [...] to preventstrokes due to atrial fibrillation(AFIB). OFFICE: [phone] CELL: [phone] NURSES STATION ON REHAB: [phone] Discharge Orders/Prescriptions Prescriptions: New hydralazine 50 mg [...] Dr. Jo-Ann Arias Referrals / Follow Up: [facility] [Other] - 12/06/24 2:30 pm (this will [...] Health Service Charges/Coding Visit Charges Inpatient E&M: 37000 Disch Hosp >30min 11/29/24 1151 Cosigner Signature (if applicable): CC: Dr. Monika Venegas MD; Dr. Gagan Schulte MD; Dr. Jo-Ann Arias DO; Dr. Odilon Melchor MD; MAGALY Davis~ Signed [facility]06-26-2025 Discharge summary [facility] Medical Records Department [address] [place] [address] Instructions for Home/Discharge Instructions 11/27/24 1602 MR#: [id number] Acct: [id number] Name: SARAH MCGUIER Rep #:[id number] : 1945 79 From: Jo-Ann Arias DO [...] drug) to 750 mg twice a day [id number] mg twice a day. You had an [...] sodium up they have to see a crew member(kidney doctor) to help manage themedications. I would [...] to preventstrokes due to atrial fibrillation(AFIB). OFFICE: [phone] CELL: [phone] NURSES STATION ON REHAB: [phone] Discharge Orders/Prescriptions Prescriptions: New hydralazine 50 mg [...] mg PO BID Referrals / Follow Up: [facility] [Other] - 11/28/24 12:00 pm Monika Venegas MD [Primary Care Provider] - 12/12/24 11:00 pm Disposition Disposition (needs filled in before D/C Order can be placed): Home Health Service 11/27/24 1646Alyssajackie Arias DO CC: TYRA Cabral; Dr. Yifan [...] mg. Will DC 11/29/24 home. spoke with dtlazaro Upton and updated her. Will schedule appts for her to follow up with Dr. Melchor and Dr. Schulte. 11/29/24 0851SemJo-Ann baker DO cc: TYRA Cabral; Dr. Yifan Roque [...] She is going to have HHC [place]. SW is going to arrange for SN [...] MD; Dr. Mattie Haynes DO; Dr. Christy Bare MD; Dr. Argentina Schmitz MD; Dr. Sanjuana Flores MD; Dr. Odilon Melchor MD; Dr. Deepak Byrd MD; Dr. Gibson Yang MD ~* Signed [facility]06-24-2025 Discharge summary Author [facility] Note Date/Time November 29, 2024 11:5 1am [facility] Medical Records Department [address] [place] [address] Discharge Summary 11/27/24 1647 MR#: [id number] Acct: [id number] Name: SARAH MCGUIRE Rep #:[id number] : 1945 79 From: Jo-Ann Arias DO PCP: Dr. Monika Venegas MD Status:ADM [place] Location: [place] [address] Providers Date of Admission: 11/12/24 Date of Discharge: 11/28/24 Primary Care Physician: Dr. Monika Venegas MD Consultations 11/28/24 12:17 Consult: Nephrology Routine Consulting Provider: [facility] Reason for Consult: hyponatremia with hx SIADH [...] long-term use: Status: Chronic Code(s): Z79.01 - director long term care (current) use of anticoagulants Plan: Continue Eliquis 2.5 mg BID. (8) Bradycardia, sinus: Status: Inactive Code(s): R00.1 - Bradycardia, unspecified Plan: Resolved with the4 discontinuation of Coreg. HR is WNL on Amiodarone 200 mg daily. (9) jail current use of amiodarone: Status: Chronic Code(s): Z79.899 - Other intermediate (current) drug therapy (10) High cholesterol: Status: [...] 2 Plan: Mepilex applied and will have C at [place] with SN to follow the ulcer to [...] to get her anxiety treated. Plan 1. [place] home with [facility]. BMP in 1 week. HHC to draw. 2. Continue Mepilex to the decubitus ulcer C SN will follow 3. BMP in 1 week - results to PCP. 4. Follow up with Dr. Schulte for chronic hyponatremia. 5. Follow up with Dr. Melchor 6. COntinue to follow up with [facility] 7. Follow up with PCP [...] tablet 2.5 mg PO BID called to [facility]180 tabs 08/13/24 acetaminophen 325 mg [...] who presented to the emergency department at [facility] on 11/07/2024 complaining of increased slurred [...] to presenting to the emergency department at [facility]. Coreg was held for bradycardia but, [...] [facility] and [facility] recommended [place]. She was transferred to the acute inpt rehab unit at [facility] on 11/12/24 for 3 hours of therapy [...] a BMP done in 1 week post DC....[facility] to draw and send results to [...] daughter Alexsandra on 11/29/2024 and will have [facility] home health care. Will have home [...] Discharge: none Please Follow Up With: Monika Venegsa MD When: listed later in this document. [...] drug) to 750 mg twice a day [id number] mg twice a day. You had an [...] had to give you a diuretic called Miles lópezple times to get rid of the excess water. You will need to have follow up lab done after you leave rehab to make sure the sodium is staying stable. Sometimes when people have SIADH and it is hard to keep the sodium up they have to see a crew member(kidney doctor) to help manage the medications. I [...] prevent strokes due to atrial fibrillation(AFIB). OFFICE: [phone] CELL: [phone] NURSES STATION ON REHAB: [phone] Discharge Orders/Prescriptions Prescriptions: New hydralazine 50 mg [...] Dr. Jo-Ann Arias Referrals / Follow Up: [facility] [Other] - 12/06/24 2:30 pm (this [...] Health Service Charges/Coding Visit Charges Inpatient E&M: 53140 Disch Hosp >30min 11/29/24 1151 <Electronically signed by Jo-Ann Arias DO> Cosigner Signature (if applicable): CC: Dr. Monika Venegas MD; Dr. Gagan Schulte MD; Dr. Jo-Ann Arias DO; Dr. Odilon Melchor MD; MAGALY Davis~ Signed [facility] Work Phone: 1(926) 251-109206-24-2025 Progress note Author Jo-Ann Arias [facility] Note Date/Time November 27, 2024 4:01 pm [facility] Medical Records Department [address] [place] [address] Progress Note 11/26/24 1206 MR#: [id number] Acct: [id number] Name: SARAH MCGUIRE Rep #:[id number] : 1945 79 From: Jo-Ann Arias DO PCP: Dr. Monika Venegas MD Status:ADM [place] Location: [place] [address] Subjective Subjective Afebrile VSS - Maintaining appropriate [...] Anticoagulant long-term use: (8) Bradycardia, sinus: (9) director long term care current use of amiodarone: (10) High cholesterol: [...] her anxiety. Charges/Coding Visit Charges Inpatient E&M: 73438 Subs Hosp L1 11/27/24 1601 <Electronically signed by Jo-Ann Arias DO> Jo-Ann Arias DO [facility] Signature (if applicable): CC: ~ Signed [facility] Work Phone: 1(578) 520-751706-24-2025 [facility]06-24-2025 Progress note [facility] Medical Records Department [address] [place] [address] Progress Note 11/26/24 1206 MR#: [id number] Acct: [id number] Name: SARAH MCGUIRE Rep #:[id number] : 1945 79 From: Jo-Ann Arias DO PCP: Dr. Monika Venegas MD Status:ADM [place] Location: [place] [address] Subjective Subjective Afebrile VSS - Maintaining appropriate [...] Anticoagulant long-term use: (8) Bradycardia, sinus: (9) jail current use of amiodarone: (10) High cholesterol: [...] her anxiety. Charges/Coding Visit Charges Inpatient E&M: 15638 Subs Hosp L1 11/27/24 1601 Jo-Ann Arias DO Cosigner Signature (if applicable): CC: ~ Signed [facility]06-19-2025 Progress note Author Jo-Ann Hsiehjenny [facility] Note Date/Time November 22, 2024 6:46 pm [facility] Medical Records Department [address] [place] [address] Progress Note 11/22/24 0850 MR#: [id number] Acct: [id number] Name: SARAH MCGUIRE Rep #:[id number] : 1945 79 From: Jo-Ann Arias DO PCP: Dr. Monika Venegas MD Status:ADM IN Location: [place] [address] Subjective Subjective Sarah was seen on team [...] Anticoagulant long-term use: (8) Bradycardia, sinus: (9) jail current use of amiodarone: (10) High cholesterol: [...] next Tuesday. She will go home with [facility] home health care. This morning when [...] this discussion. Charges/Coding Visit Charges Inpatient E&M: 26316 Subs Hosp L2 11/22/24 1846 <Electronically signed by Jo-Ann Arias DO> Jo-Ann Arias DO Cosigner Signature (if applicable): CC: ~ Signed [facility] Work Phone: 1(578) 975-725006-19-2025 Progress note [facility] Medical Records Department [address] [place] [address] Progress Note 11/22/24 0850 MR#: [id number] Acct: [id number] Name: SARAH MCGUIRE Rep #:[id number] : 1945 79 From: Jo-Ann Arias DO PCP: Dr. Monika Venegas MD Status:ADM IN Location: [place] [address]1 Subjective Subjective Sarah was seen on team rounds today. Afebrile VSS - Maintaining appropriate oxygen saturation on RA Oral intake - FOOD good FLUIDS she is on fluid restriction for SIADH.Suspectyony is drinking more than what is being [...] Anticoagulant long-term use: (8) Bradycardia, sinus: (9) jail current use of amiodarone: (10) High cholesterol: [...] next Tuesday. She will go home with [facility] home health care. This morning when [...] will be worse. I told her that whenfazale is talking with someone she should not have the radio or the television on and that they should always be standing in front of her talking to her and not behind her or talking to her from another room. Her daughter was present when we had this discussion. Charges/Coding Visit Charges Inpatient E&M: 48086 Subs Hosp L2 11/22/24 1846 Jo-Ann Arias DO Cosigner Signature (if applicable): CC: ~ Signed [facility]06-17-2025 Progress note Author Jo-Ann Hsiehjenny [facility] Note Date/Time 2024 11:5 3am [facility] Medical Records Department [address] [place] [address] Progress Note 11/20/24 1140 MR#: [id number] Acct: [id number] Name: SARAH MCGUIRE Rep #:[id number] : 1945 79 From: Jo-Ann Arias DO PCP: Dr. Monika Venegas MD Status:ADM IN Location: [place] [address] Subjective Subjective Afebrile Fluid intake yesterday was [...] Anticoagulant long-term use: (8) Bradycardia, sinus: (9) director long term care current use of amiodarone: (10) High cholesterol: [...] the AM. Charges/Coding Visit Charges Inpatient E&M: 89338 Subs Hosp L1 11/20/24 1153 <Electronically signed by Jo-Ann Arias DO> Jo-Ann Arias DO Cosigner Signature (if applicable): CC: ~ Signed [facility] Work Phone: 1(208) 183-222806-17-2025 Progress note [facility] Medical Records Department [address] [place] [address] Progress Note 11/20/24 1140 MR#: [id number] Acct: [id number] Name: SARAH MCGUIRE Rep #:[id number] : 1945 79 From: Jo-Ann Arias DO PCP: Dr. Monika Venegas MD Status:ADM IN Location: [place] [address] Subjective Subjective Afebrile Fluid intake yesterday was [...] Anticoagulant long-term use: (8) Bradycardia, sinus: (9) jail current use of amiodarone: (10) High cholesterol: [...] the AM. Charges/Coding Visit Charges Inpatient E&M: 27716 Subs Hosp L1 11/20/24 1153 Jo-Ann Arias DO Cosigner Signature (if applicable): CC: ~ Signed [facility]06-16-2025 Progress note Author [facility] Note Date/Time November 19, 2024 10:5 9am [facility] Medical Records Department [address] [place] [address] Progress Note 11/19/24 0826 MR#: [id number] Acct: [id number] Name: SARAH MCGUIRE Rep #:[id number] : 1945 79 From: Jo-Ann Arias DO PCP: Dr. Monika Venegas MD Status:ADM IN Location: [place] [address] Subjective Subjective Afebrile VSS -blood pressure over [...] Anticoagulant long-term use: (8) Bradycardia, sinus: (9) director long term care current use of amiodarone: (10) High cholesterol: [...] BMP . Charges/Coding Visit Charges Inpatient E&M: 49712 Subs Hosp L1 11/19/24 1051 <Electronically signed by Jo-Ann Arias DO> Jo-Ann Arias DO Cosigner Signature (if applicable): CC: ~ Signed [facility] Work Phone: 1(414) 749-462806-16-2025 Progress note [facility] Medical Records Department [address] [place] [address] Progress Note 11/19/24825 MR#: [id number] Acct: [id number] Name: SARAH MCGUIRE Rep #:[id number] : 1945 79 From: Jo-Ann Arias DO PCP: Dr. Monika Venegas MD Status:ADM IN Location: [place] [address] Subjective Subjective Afebrile VSS -blood pressure over [...] Anticoagulant long-term use: (8) Bradycardia, sinus: (9) jail current use of amiodarone: (10) High cholesterol: [...] Plan 1. Continue therapy 2. BMP and today. Reviewed. 3. Encouraged her to [...] BMP . Charges/Coding Visit Charges Inpatient E&M: 49715 Subs Hosp L1 11/19/24 1059 Jo-Ann Arias DO Cosigner Signature (if applicable): CC: ~ Signed [facility]06-13-2025 Progress note Author [facility] Note Date/Time November 16, 2024 7:12 pm [facility] Medical Records Department [address] [place] [address] Progress Note 11/16/24 0828 MR#: [id number] Acct: [id number] Name: SARAH MCGUIRE Rep #:[id number] : 1945 78 From: Jo-Ann rAias DO PCP: Dr. Monika Venegas MD Status:ADM IN Location: [place] [address] Subjective Subjective Afebrile VSS -she was transitioned [...] Anticoagulant long-term use: (8) Bradycardia, sinus: (9) jail current use of amiodarone: (10) High cholesterol: [...] more days. Charges/Coding Visit Charges Inpatient E&M: 09420 Subs Hosp L1 11/16/241911 <Electronically signed by Jo-Ann Arias DO> Jo-Ann Arias DO Cosigner Signature (if applicable): CC: ~ Signed [facility] Work Phone: 1(358) 391-705806-13-2025 Progress note [facility] Medical Records Department [address] [place] [address] Progress Note 11/16/2428 MR#: [id number] Acct: [id number] Name: SARAH MCGUIRE Rep #:[id number] : 1945 78 From: Jo-Ann Arias DO PCP: Dr. Monika Venegas MD Status:ADM IN Location: [place] [address] Subjective Subjective Afebrile VSS -she was transitioned from lisinopril to hydralazine for blood pressure control yesterday. The blood pressure over the past 24 hours has ranged from 137/38 to 175/80. Blood pressure this a.m. vfx561/40. The heart rate is ranged from 54-89. [...] Anticoagulant long-term use: (8) Bradycardia, sinus: (9) director long term care current use of amiodarone: (10) High cholesterol: [...] more days. Charges/Coding Visit Charges Inpatient E&M: 08762 Subs Hosp L1 11/16/241911 Jo-Ann Arias DO Cosigner Signature (if applicable): CC: ~ Signed [facility]06-12-2025 Progress note Author Jo-Ann Hsiehjenny [facility] Note Date/Time November 15, 2024 6:12 pm [facility] Medical Records Department [address] [place] [address] Progress Note 11/15/24 1124 MR#: [id number] Acct: [id number] Name: SARAH MCGUIRE Rep #:[id number] : 1945 78 From: Jo-Ann Arias DO PCP: Dr. Monika Venegas MD Status:ADM IN Location: [place] [address] Subjective Subjective Sarah was seen on team [...] Anticoagulant long-term use: (8) Bradycardia, sinus: (9) director long term care current use of amiodarone: (10) High cholesterol: [...] Nephrology. 8. Hyponatremia is a [facility] Charges/Coding Visit Charges Inpatient E&M: 12161 Subs Hosp L2 11/15/241811 <Electronically signed by Jo-Ann Arias DO> Jo-Ann Arias DO Cosigner Signature (if applicable): CC: ~ Signed [facility] Work Phone: 1([phone]) 878-821006-12-2025 Progress note [facility] Medical Records Department [address] [place] [address] Progress Note 11/15/24 1124 MR#: [id number] Acct: [id number] Name: SARAH MCGUIRE Rep #:[id number] : 1945 78 From: Jo-Ann Arias PCP: Dr. Monika Venegas MD Status:ADM IN Location: [place] [address] Subjective Subjective Sarah was seen on team [...] Anticoagulant long-term use: (8) Bradycardia, sinus: (9) director long term care current use of amiodarone: (10) High cholesterol: [...] of [place] Charges/Coding Visit Charges Inpatient E&M: 41554 Subs Hosp L2 11/15/24 1812 Jo-Ann Arias DO Cosigner Signature (if applicable): CC: ~ Signed [facility]06-10-2025 History and physical note Author Jo-Ann Arias [facility] Note Date/Time November 13, 2024 2:53 pm [facility] Medical Records Department [address] [place] [address] Post Admission Physician Radhika 11/13/24 1200 MR#: [id number] Acct: [id number] Name: SARAH MCGUIRE Rep #:[id number] : 1945 78 From: Jo-Ann Arias DO PCP: Dr. Monika Venegas MD Status:ADM IN Location: [place] [address] Admission Information Primary Diagnosis:: Debility/generalized weakness/recent diagnosis [...] Skin integrity and Medication Management Patient needs Birth Certificate Clerk/ Case Management for: Discharge Planning, Arranging Home [...] friends Was Preadmission Assessment Accurate?: Yes 11/13/24 9620 <Electronically signed by Jo-Ann Arias DO> Cosigner Signature (if applicable): CC: ~ Signed [facility] Work Phone: 1(256) 653-483606-10-2025 History and physical note Author [facility] Note Date/Time November 13, 2024 2:48 pm [facility] Medical Records Department [address] [place] [address] History & Physical Exam 11/13/24 1050 MR#: [id number] Acct: [id number] Name: SARAH MCGUIRE Rep #:[id number] : 1945 78 From: Jo-Ann Arias DO PCP: Dr. Monika Venegas MD Status:ADM [facility] - General General Date of Admission: [...] who presented to the emergency department at [facility] on 11/07/2024 complaining of increased slurred [...] to presenting to the emergency department at [facility].. Coreg was held for bradycardia but, [...] to the acute inpt rehab unit at [facility] on 11/12/24 for 3 hours of therapy [...] x 3 are all less than 100. [facility] Medical History (Updated 11/13/24 @ 14:46 by [...] DO) household members: children and other details: DTLazaro Upton lives with her. housing: house current [...] for a UTI at presentation torehab with [facility] ; Denies dysuria, hematuria, nocturia, [...] [facility] for bradycardia. TSH is normal. (9) jail current use of amiodarone: (10) High cholesterol: [...] cardiology in January 2024. Last echocardiogram at [facility] was in 2021. It showed an ejection fraction of 60% with stage I diastolic dysfunction, mild left atrial enlargement, mild mitral regurgitation and a PA systolic estimated at 36. She had an echocardiogram at [facility] when she had her craniotomy and the EF was 65 to 70%. The atria were of normal size. There was no kggpd-ln-pibm shunt. She had mild to moderate mitral [...] with everything. Charges/Coding Visit Charges Inpatient E&M: 67139 Init Hosp L2 11/13/24 6829 <Electronically signed by Jo-Ann Arias DO> Cosigner Signature (if applicable): CC: Dr. Monika Venegas MD; Dr. Jo-Ann Arias DO; MAGALY Davis~ Signed [facility] Work Phone: 1(731) 111-508706-10-2025 History and physical note [facility] Medical Records Department [address] [place] [address] Post Admission Physician Radhika 11/13/24 1200 MR#: [id number] Acct: [id number] Name: SARAH MCGUIRE Rep #:[id number] : 1945 78 From: Jo-Ann Arias DO PCP: Dr. Monika Venegas MD Status:ADM IN Location: [place] [address] Admission Information Primary Diagnosis:: Debility/generalized weakness/recent diagnosis [...] Language Skills and Compensatory Strategies Patient requires 24/ Rehabilitation Nursing for: Pain Issues, Identifying and preventing risk factors, Monitoring and reporting current medical conditions, Assisting with ambulation, transfer, and all ADL's, Teaching patients about disease process and medications, Family teaching, Providing safe environment, Bowel and Bladder Issues, Skin integrity and Medication Management Patient needs Birth Certificate Clerk/ Case Management for: Discharge Planning, Arranging Home [...] friends Was Preadmission Assessment Accurate?: Yes 11/13/24 8067 Cosigner Signature (if applicable): CC: ~ Signed [facility]06-10-2025 History and physical note [facility] Medical Records Department [address] [place] [address] History & Physical Exam 11/13/24 1050 MR#: [id number] Acct: [id number] Name: SARAH MCGUIRE Rep #:[id number] : 1945 78 From: Jo-Ann Arias DO PCP: Dr. Monika Venegas MD Status:ADM IN Location: [place] [address] HPI - General General Date of Admission: [...] who presented to the emergency department at [facility] on 11/07/2024 complaining of increased slurred [...] to presenting to the emergency department at [facility].. Coreg was held for santosh ycardia [...] [facility] and [place]. She was transferred to the acute inpt rehab unit at [facility] on 11/12/24 for 3 hours of therapy [...] x 3 are all less than 100. [facility] Medical History (Updated 11/13/24 @ 14:[address] Jo-Ann Arias DO) Presbycusis History of rheumatic fever as [...] (Updated 11/13/24 @ 14:[address] Jo-Ann Arias, DO) household members: children and other details: [...] [facility] for bradycardia. TSH is normal. (9) jail current use of amiodarone: (10) High cholesterol: [...] cardiology in January 2024. Last echocardiogram at [facility] was in 2021. It showed an ejection fraction of 60% with stage I diastolic dysfunction, mild left atrial enlargement, mild mitral regurgitation and a PA systolic estimated at 36. She had an echocardiogram at [facility] when she had her craniotomy and the EF was 65 to 70%. The atria were of normal size. There was no mdhki-fw-xwcn shunt. She had mild to moderate mitral [...] with everything. Charges/Coding Visit Charges Inpatient E&M: 83360 Init Hosp L2 11/13/24 1448 Cosigner Signature (if applicable): CC: Dr. Monika Venegas MD; Dr. Jo-Ann Arias DO; MAGALY Davis~ Signed [facility]10[facility]* Diagnosis Onset Date Resolution [...] hematoma chron ic November 12, 2024 6:16pm director long term care current use of amiodarone chronic November 12, 2024 6 :16pm Mild aortic stenosis chronic November 12, 2024 6:16pm Paroxysmal atrial fibrillation chron ic November 12, 2024 6:16pm Presbycusis chronic November 12 6:16pm Severe anxiety chronic November 12, 2024 6:16pm Acute cystitis resolved November 12, 2024 6:16pm Hypo-osmolality and hyponatremia res olved November 12, 2024 6:16pm Bradycardia, sinus inactive November 122024 6:16pm [facility] Work Phone: [phone]) 990-171706-09-2025 Evaluation note* Diagnosis Onset Date Resolution Status [...] hematoma chron ic November 12, 2024 6:16pm jail current use of amiodarone chronic November 12, [...] 03, 2024 10:35pm Intracranial epidural hematoma chron ic December 03, 2024 10:35pm [facility] Work Phone: 1(241) 941-972306-09-2025 Evaluation note* Diagnosis Onset Date Resolution Status [...] hematoma chron ic November 12, 2024 6:16pm director long term care current use of amiodarone chronic November 12, 2024 6 :16pm Mild aortic stenosis chronic November 12, 2024 6:16pm Paroxysmal atrial fibrillation chron ic November 12, 2024 6:16pm Presbycusis chronic November 12 6:16pm Severe anxiety chronic November 12, 2024 6:16pm Acute cystitis resolved November 12, 2024 6:16pm Hypo-osmolality and hyponatremia res olved November 12, 2024 6:16pm Bradycardia, sinus inactive November 122024 6:16pm Abnormal finding on urinalysis acute December 05, 2024 6:07pm Ambulatory dysfunction acute Ju 2024 6:07pm Falls acute December 05, 2024 6:07pm Generalized weakness acute December 05, 2024 6:07pm History of subdural hematoma acute December 05, 2024 6:07pm Hyponatremia acute December 05 6:07pm Ischemic cerebrovascular accident (CVA) acute December 05, 2024 6 :07pm Seizure disorder acute December 6:07pm Anticoagulant long-term use chronic December 05, 2024 6:07pm Intracranial epidural hematoma chron ic December 05, 2024 6:07pm [facility] Work Phone: 1([phone]) 512-674906-09-2025 Evaluation note* Diagnosis Onset Date Resolution Status Admit Date Decubitus ulcer of coccyx, s tage 2 acute November 12, 2024 6 :16pm Generalized muscle weakness acute November 12, 2024 6:16pm Paroxysmal atrial fibrillation acute November 12, 2024 6:16pm Physical debility acute November 6:16pm Seizure disorder acute November 6:16pm Severe anxiety chronic November 12, 2024 6:16pm Acute cystitis resolved November 12, 2024 6:16pm Anticoagulant long-term use resolved November 12, 2024 6:16pm Hypo-osmolality and hyponatremia res olved November 12, 2024 6:16pm Bradycardia, sinus inactive November 122024 6:16pm Carotid artery bruit inactive November 12, 2024 6:16pm Chronic anemia inactive November 12, 2024 6:16pm Grade II diastolic dysfunction inact henrietta November 12, 2024 6:16pm High cholesterol inactive November 6:16pm HTN (hypertension) inactive November 122024 6:16pm Intracranial epidural hematoma inact henrietta November 12, 2024 6:16pm jail current use of amiodarone inactive November 12, 2024 6 :16pm Mild aortic stenosis inactive November 12, 2024 6:16pm Presbycusis inactive November 12 6:16pm Abnormal finding on urinalysis acute December 05, 2024 6:07pm Ambulatory dysfunction acute Ju 2024 6:07pm Falls acute December 05, 2024 6:07pm Generalized weakness acute December 05, 2024 6:07pm History of subdural hematoma acute December 05, 2024 6:07pm Hyponatremia acute December 05 6:07pm Ischemic cerebrovascular accident (CVA) acute December 05, 2024 6 :07pm Seizure disorder acute December 6:07pm Anticoagulant long-term use resolved December 05, 2024 6:07pm Intracranial epidural hematoma inact henrietta December 05, 2024 6:07pm [facility] Work Phone: 1(114) 506-460606-09-2025 Evaluation note* Diagnosis Onset Date Resolution Status Admit Date Decubitus ulcer of coccyx, s tage 2 acute November 12, 2024 6 :16pm Generalized muscle weakness acute November 12, 2024 6:16pm director long term care current use of amiodarone acute November 12, 2024 6 :16pm Paroxysmal atrial fibrillation acute November 12, 2024 6:16pm Physical debility acute November 6:16pm Seizure disorder acute November 6:16pm Severe anxiety chronic November 12, 2024 6:16pm Acute cystitis resolved November 12, 2024 6:16pm Anticoagulant long-term use resolved November 12, 2024 6:16pm Hypo-osmolality and hyponatremia res olved November 12, 2024 6:16pm Bradycardia, sinus inactive November 122024 6:16pm Carotid artery bruit inactive November 12, 2024 6:16pm Chronic anemia inactive November 12, 2024 6:16pm Grade II diastolic dysfunction inact henrietta November 12, 2024 6:16pm High cholesterol inactive November 6:16pm HTN (hypertension) inactive November 122024 6:16pm Intracranial epidural hematoma inact henrietta November 12, 2024 6:16pm Mild aortic stenosis inactive November 12, 2024 6:16pm Presbycusis inactive November 12 6:16pm Abnormal finding on urinalysis acute December 05, 2024 6:07pm Ambulatory dysfunction acute Ju 2024 6:07pm Falls acute December 05, 2024 6:07pm Generalized weakness acute December 05, 2024 6:07pm History of subdural hematoma acute December 05, 2024 6:07pm Hyponatremia acute December 05 6:07pm Ischemic cerebrovascular accident (CVA) acute December 05, 2024 6 :07pm Seizure disorder acute December 6:07pm Anticoagulant long-term use resolved December 05, 2024 6:07pm Intracranial epidural hematoma inact henrietta December 05, 2024 6:07pm Elevated LFTs acute December 11, 2 025 3:10pm jail current use of amiodarone acute December 11, 2024 3 :10pm Paroxysmal atrial fibrillation acute December 11, 2024 3:10pm [facility] [employer] Work Phone: 1(870) 916-620806-09-2025 Evaluation note* Diagnosis Onset Date Resolution Status Admit Date Decubitus ulcer of coccyx, s tage 2 acute November 12, 2024 6 :16pm Generalized muscle weakness acute November 12, 2024 6:16pm director long term care current use of amiodarone acute November 12, 2024 6 :16pm Paroxysmal atrial fibrillation acute November 12, 2024 6:16pm Physical debility acute November 6:16pm Seizure disorder acute November 6:16pm Severe anxiety chronic November 12, 2024 6:16pm Acute cystitis resolved November 12, 2024 6:16pm Anticoagulant long-term use resolved November 12, 2024 6:16pm Hypo-osmolality and hyponatremia res olved November 12, 2024 6:16pm Bradycardia, sinus inactive November 122024 6:16pm Carotid artery bruit inactive November 12, 2024 6:16pm Chronic anemia inactive November 12, 2024 6:16pm Grade II diastolic dysfunction inact henrietta November 12, 2024 6:16pm High cholesterol inactive November 6:16pm HTN (hypertension) inactive November 122024 6:16pm Intracranial epidural hematoma inact henrietta November 12, 2024 6:16pm Mild aortic stenosis inactive November 12, 2024 6:16pm Presbycusis inactive November 12 6:16pm Abnormal finding on urinalysis acute December 05, 2024 6:07pm Ambulatory dysfunction acute Ju 2024 6:07pm Falls acute December 05, 2024 6:07pm Generalized weakness acute December 05, 2024 6:07pm History of subdural hematoma acute December 05, 2024 6:07pm Hyponatremia acute December 05 6:07pm Ischemic cerebrovascular accident (CVA) acute December 05, 2024 6 :07pm Seizure disorder acute December 6:07pm Anticoagulant long-term use resolved December 05, 2024 6:07pm Intracranial epidural hematoma inact henrietta December 05, 2024 6:07pm Bilateral carotid bruits acute December 11, 2024 3:10pm Elevated LFTs acute December 11, 025 3:10pm Heart murmur acute December 11 3:10pm Ischemic cerebrovascular accident (CVA) acute December 11, 2024 3 :10pm director long term care current use of amiodarone acute December 11, 2024 3 :10pm Paroxysmal atrial fibrillation acute December 11, 2024 3:10pm [facility] Work Phone: 1(120) 129-175606-09-2025 Evaluation note* Diagnosis Onset Date Resolution Status Admit Date Decubitus ulcer of coccyx, s tage 2 acute November 12, 2024 6 :16pm Generalized muscle weakness acute November 12, 2024 6:16pm director long term care current use of amiodarone acute November 12, 2024 6 :16pm Paroxysmal atrial fibrillation acute November 12, 2024 6:16pm Physical debility acute November 6:16pm Seizure disorder acute November 6:16pm Severe anxiety chronic November 12, 2024 6:16pm Acute cystitis resolved November 12, 2024 6:16pm Anticoagulant long-term use resolved November 12, 2024 6:16pm Hypo-osmolality and hyponatremia res olved November 12, 2024 6:16pm Bradycardia, sinus inactive November 122024 6:16pm Carotid artery bruit inactive November 12, 2024 6:16pm Chronic anemia inactive November 12, 2024 6:16pm Grade II diastolic dysfunction inact henrietta November 12, 2024 6:16pm High cholesterol inactive November 6:16pm HTN (hypertension) inactive November 122024 6:16pm Intracranial epidural hematoma inact henrietta November 12, 2024 6:16pm Mild aortic stenosis inactive November 12, 2024 6:16pm Presbycusis inactive November 12 6:16pm Abnormal finding on urinalysis acute December 05, 2024 6:07pm Ambulatory dysfunction acute Ju 2024 6:07pm Falls acute December 05, 2024 6:07pm Generalized weakness acute December 05, 2024 6:07pm History of subdural hematoma acute December 05, 2024 6:07pm Hyponatremia acute December 05 6:07pm Ischemic cerebrovascular accident (CVA) acute December 05, 2024 6 :07pm Seizure disorder acute December 6:07pm Anticoagulant long-term use resolved December 05, 2024 6:07pm Intracranial epidural hematoma inact henrietta December 05, 2024 6:07pm Bilateral carotid bruits acute December 11, 2024 3:10pm Elevated LFTs acute December 11, 2 025 3:10pm Heart murmur acute December 11 3:10pm Ischemic cerebrovascular accident (CVA) acute December 11, 2024 3 :10pm jail current use of amiodarone acute December 11, 2024 3 :10pm Paroxysmal atrial fibrillation acute December 11, 2024 3:10pm Impacted cerumen of both ears acute December 20, 2024 11:17am [facility] Work Phone: 1([phone]) 346-981506-09-2025 Evaluation note* Diagnosis Onset Date Resolution Status Admit Date Decubitus ulcer of coccyx, s tage 2 acute November 12, 2024 6 :16pm Generalized muscle weakness acute November 12, 2024 6:16pm director long term care current use of amiodarone acute November 12, 2024 6 :16pm Paroxysmal atrial fibrillation acute November 12, 2024 6:16pm Physical debility acute November 6:16pm Seizure disorder acute November 6:16pm Severe anxiety chronic November 12, 2024 6:16pm Acute cystitis resolved November 12, 2024 6:16pm Anticoagulant long-term use resolved November 12, 2024 6:16pm Hypo-osmolality and hyponatremia res olved November 12, 2024 6:16pm Bradycardia, sinus inactive November 122024 6:16pm Carotid artery bruit inactive November 12, 2024 6:16pm Chronic anemia inactive November 12, 2024 6:16pm Grade II diastolic dysfunction inact henrietta November 12, 2024 6:16pm High cholesterol inactive November 6:16pm HTN (hypertension) inactive November 122024 6:16pm Intracranial epidural hematoma inact henrietta November 12, 2024 6:16pm Mild aortic stenosis inactive November 12, 2024 6:16pm Presbycusis inactive November 12 6:16pm Abnormal finding on urinalysis acute December 05, 2024 6:07pm Ambulatory dysfunction acute 2024 6:07pm Falls acute December 05, 2024 6:07pm Generalized weakness acute December 05, 2024 6:07pm History of subdural hematoma acute December 05, 2024 6:07pm Hyponatremia acute December 05 6:07pm Ischemic cerebrovascular accident (CVA) acute December 05, 2024 6 :07pm Seizure disorder acute December 6:07pm Anticoagulant long-term use resolved December 05, 2024 6:07pm Intracranial epidural hematoma inact henrietta December 05, 2024 6:07pm Bilateral carotid bruits acute December 11, 2024 3:10pm Elevated LFTs acute December 11, 2 025 3:10pm Heart murmur acute December 11 3:10pm Ischemic cerebrovascular accident (CVA) acute December 11, 2024 3 :10pm director long term care current use of amiodarone acute December 11, 2024 3 :10pm Paroxysmal atrial fibrillation acute December 11, 2024 3:10pm History of resection of meningioma acute December 20, 2024 8:52am Hyponatremia acute December 20, 025 8:52am Mild cognitive impairment acute December 20, 2024 8:52am Parkinson's disease acute December 20, 2024 8:52am Seizure acute December 20 8:52am Chronic subdural hematoma chronic December 20, 2024 8:52am Impacted cerumen of both ears acute December 20, 2024 11:17am [facility] [employer] [facility] Work Phone: 1(640) 785-691906-09-2025 Evaluation note* Diagnosis Onset Date Resolution Status Admit Date Decubitus ulcer of coccyx, s tage 2 acute November 12, 2024 6 :16pm Generalized muscle weakness acute November 12, 2024 6:16pm jail current use of amiodarone acute November 12, 2024 6 :16pm Paroxysmal atrial fibrillation acute November 12, 2024 6:16pm Physical debility acute November 6:16pm Seizure disorder acute November 6:16pm Severe anxiety chronic November 12, 2024 6:16pm Acute cystitis resolved November 12, 2024 6:16pm Anticoagulant long-term use resolved November 12, 2024 6:16pm Hypo-osmolality and hyponatremia res olved November 12, 2024 6:16pm Bradycardia, sinus inactive November 122024 6:16pm Carotid artery bruit inactive November 12, 2024 6:16pm Chronic anemia inactive November 12, 2024 6:16pm Grade II diastolic dysfunction inact henrietta November 12, 2024 6:16pm High cholesterol inactive November 6:16pm HTN (hypertension) inactive November 122024 6:16pm Intracranial epidural hematoma inact henrietta November 12, 2024 6:16pm Mild aortic stenosis inactive November 12, 2024 6:16pm Presbycusis inactive November 12 6:16pm Abnormal finding on urinalysis acute December 05, 2024 6:07pm Ambulatory dysfunction acute 2024 6:07pm Falls acute December 05, 2024 6:07pm Generalized weakness acute December 05, 2024 6:07pm History of subdural hematoma acute December 05, 2024 6:07pm Hyponatremia acute December 05 6:07pm Ischemic cerebrovascular accident (CVA) acute December 05, 2024 6 :07pm Seizure disorder acute December 6:07pm Anticoagulant long-term use resolved December 05, 2024 6:07pm Intracranial epidural hematoma inact henrietta December 05, 2024 6:07pm Bilateral carotid bruits acute December 11, 2024 3:10pm Elevated LFTs acute December 11, 2 025 3:10pm Heart murmur acute December 11 3:10pm Ischemic cerebrovascular accident (CVA) acute December 11, 2024 3 :10pm director long term care current use of amiodarone acute December 11, 2024 3 :10pm Paroxysmal atrial fibrillation acute December 11, 2024 3:10pm History of resection of meningioma acute December 20, 2024 8:52am Hyponatremia acute December 20, 2 025 8:52am Mild cognitive impairment acute December 20, 2024 8:52am Parkinson's disease acute December 20, 2024 8:52am Seizure acute December 20 8:52am Chronic subdural hematoma chronic December 20, 2024 8:52am Impacted cerumen of both ears acute December 20, 2024 11:17am Bilateral carotid bruits acute January 18, 2025 3:27pm Elevated LFTs acute January 3:27pm Heart murmur acute January 18, 2025 3:27pm Ischemic cerebrovascular accident (CVA) acute January 18 3:27pm director long term care current use of amiodarone acute January 18 3:27pm Paroxysmal atrial fibrillation acute January 18, 2025 3:27pm [facility] Work Phone: 1(731) 417-857206-09-2025 Evaluation note* Diagnosis Onset Date Resolution Status Admit Date Decubitus ulcer of coccyx, stage 2 acute November 12, 2024 6 :16pm Generalized muscle weakness acute November 12, 2024 6:16pm director long term care current use of amiodarone acute November 12, 2024 6 :16pm Paroxysmal atrial fibrillation acute November 12, 2024 6:16pm Physical debility acute November 6:16pm Seizure disorder acute November 6:16pm Severe anxiety chronic November 12, 2024 6:16pm Acute cystitis resolved November 12, 2024 6:16pm Anticoagulant long-term use resolved November 12, 2024 6:16pm Hypo-osmolality and hyponatremia resolved November 12, 2024 6 :16pm Bradycardia, sinus inactive November 122024 6:16pm Carotid artery bruit inactive November 12, 2024 6:16pm Chronic anemia inactive November 12, 2024 6:16pm Grade II diastolic dysfunction inact henrietta November 12, 2024 6:16pm High cholesterol inactive November 6:16pm HTN (hypertension) inactive November 122024 6:16pm Intracranial epidural hematoma inact henrietta November 12, 2024 6:16pm Mild aortic stenosis inactive November 12, 2024 6:16pm Presbycusis inactive November 12 6:16pm Abnormal finding on urinalysis acute December 05, 2024 6:07pm Ambulatory dysfunction acute Ju 2024 6:07pm Falls acute December 05, 2024 6:07pm Generalized weakness acute December 05, 2024 6:07pm History of subdural hematoma acute December 05, 2024 6:07pm Hyponatremia acute December 05 6:07pm Ischemic cerebrovascular accident (CVA) acute December 05, 2024 6 :07pm Seizure disorder acute December 6:07pm Anticoagulant long-term use resolved December 05, 2024 6:07pm Intracranial epidural hematoma inact henrietta December 05, 2024 6:07pm Bilateral carotid bruits acute December 11, 2024 3:10pm Elevated LFTs acute December 11, 2 025 3:10pm Heart murmur acute December 11 3:10pm Ischemic cerebrovascular accident (CVA) acute December 11, 2024 3 :10pm jail current use of amiodarone acute December 11, 2024 3 :10pm Paroxysmal atrial fibrillation acute December 11, 2024 3:10pm History of resection of meningioma acute December 20, 2024 8:52am Hyponatremia acute December 20, 025 8:52am Mild cognitive impairment acute December 20, 2024 8:52am Parkinson's disease acute December 20, 2024 8:52am Seizure acute December 20 8:52am Chronic subdural hematoma chronic December 20, 2024 8:52am Impacted cerumen of both ears acute December 20, 2024 11:17am Bilateral carotid bruits acute January 18, 2025 3:27pm Elevated LFTs acute January 3:27pm Heart murmur acute January 18, 2025 3:27pm Ischemic cerebrovascular accident (CVA) acute January 18 3:27pm jail current use of amiodarone acute January 18 3:27pm Paroxysmal atrial fibrillation acute January 18, 2025 3:27pm History of resection of meningioma acute February 26, 2025 9:39am Mild cognitive impairment acute February 26, 2025 9:39am Chronic subdural hematoma chronic February 26, 2025 9:39am [facility] Work Phone: 1(802) 518-425206-09-2025 Evaluation note* Diagnosis Onset Date Resolution Status Admit Date Decubitus ulcer of coccyx, stage 2 acute November 12, 2024 6 :16pm Generalized muscle weakness acute November 12, 2024 6:16pm jail current use of amiodarone acute November 12, 2024 6 :16pm Paroxysmal atrial fibrillation acute November 12, 2024 6:16pm Physical debility acute November 6:16pm Seizure disorder acute November 6:16pm Severe anxiety chronic November 12, 2024 6:16pm Acute cystitis resolved November 12, 2024 6:16pm Anticoagulant long-term use resolved November 12, 2024 6:16pm Hypo-osmolality and hyponatremia resolved November 12, 2024 6 :16pm Bradycardia, sinus inactive November 122024 6:16pm Carotid artery bruit inactive November 12, 2024 6:16pm Chronic anemia inactive November 12, 2024 6:16pm Grade II diastolic dysfunction inact henrietta November 12, 2024 6:16pm High cholesterol inactive November 6:16pm HTN (hypertension) inactive November 122024 6:16pm Intracranial epidural hematoma inact henrietta November 12, 2024 6:16pm Mild aortic stenosis inactive November 12, 2024 6:16pm Presbycusis inactive November 12 6:16pm Abnormal finding on urinalysis acute December 05, 2024 6:07pm Ambulatory dysfunction acute 2024 6:07pm Falls acute December 05, 2024 6:07pm Generalized weakness acute December 05, 2024 6:07pm History of subdural hematoma acute December 05, 2024 6:07pm Hyponatremia acute December 05 6:07pm Ischemic cerebrovascular accident (CVA) acute December 05, 2024 6 :07pm Seizure disorder acute December 6:07pm Anticoagulant long-term use resolved December 05, 2024 6:07pm Intracranial epidural hematoma inact henrietta December 05, 2024 6:07pm Bilateral carotid bruits acute December 11, 2024 3:10pm Elevated LFTs acute December 11, 2 025 3:10pm Heart murmur acute December 11 3:10pm Ischemic cerebrovascular accident (CVA) acute December 11, 2024 3 :10pm director long term care current use of amiodarone acute December 11, 2024 3 :10pm Paroxysmal atrial fibrillation acute December 11, 2024 3:10pm History of resection of meningioma acute December 20, 2024 8:52am Hyponatremia acute December 20, 2 025 8:52am Mild cognitive impairment acute December 20, 2024 8:52am Parkinson's disease acute December 20, 2024 8:52am Seizure acute December 20 8:52am Chronic subdural hematoma chronic December 20, 2024 8:52am Impacted cerumen of both ears acute December 20, 2024 11:17am Bilateral carotid bruits acute January 18, 2025 3:27pm Elevated LFTs acute January 3:27pm Heart murmur acute January 18, 2025 3:27pm Ischemic cerebrovascular accident (CVA) acute January 18 3:27pm director long term care current use of amiodarone acute January 18 3:27pm Paroxysmal atrial fibrillation acute January 18, 2025 3:27pm History of resection of meningioma acute February 26, 2025 9:39am Mild cognitive impairment acute February 26, 2025 9:39am Chronic subdural hematoma chronic February 26, 2025 9:39am Bilateral carotid bruits acute March 13, 2025 2:39pm Elevated LFTs acute March 2:39pm Heart murmur acute March 13, 2025 2:39pm Ischemic cerebrovascular accident (CVA) acute March 13 2:39pm jail current use of amiodarone acute March 13 2:39pm Paroxysmal atrial fibrillation acute March 13, 2025 2:39pm [facility] [employer] [facility] Work Phone: 1(340) 624-618006-09-2025 Hospital course Narrative* Angel Melendrez MD - [...] during her recent hospital stay at [facility]. As you may know, Sarah Mcguire is [...] the patient's recordscan be obtained via [employer] at [email or web address] It has been my pleasure participating [...] erythema Skin: No jaundice or rash Neuro: product safety lead 3-7, 9-11 intact and equal. Strength grossly equal in muscle groups of the bilateral UEsand LEs. Psych: Ox3, appropriate affect and cognition Recent Labs 11/12/24 0458 WBC 6.18 HGB 10.6* PLATELET 195 SODIUM 131* POTASSIUM 4.5 CO2 25 ANIONGAP 12 BUN 16 CREATSERUM 0.89 Patient Instructions Future Appointments Date Time Provider Department Center 11/28/2024 12:00 PM MD LIZET Esquivel [address] [id number] Medication List for when you go home [...] Spironolactone 25 MG/5ML SUSP [facility] Plan of care note* Plan of [...] Discharge Problem: Mobility Impairment Goal: Optimal Mobility [place] and Safety Outcome: Adequate for Discharge Problem: Communication Impairment Goal: Effective Communication Skills Outcome: Adequate for Discharge [facility]06-09[facility] Miscellaneous Notes* Plan of Care - [...] Discharge Problem: Mobility Impairment Goal: Optimal Mobility [place] and Safety Outcome: Adequate for Discharge Problem: Communication Impairment Goal: Effective Communication Skills Outcome: Adequate for Discharge * Nursing Notes - Shanna Benavides RN - 11/12/2024 3:42 PM EDT Report called to Mo BEAUCHAMP. * Plan of Care - Karen Johnson, [...] Progressing Problem: Mobility Impairment Goal: Optimal Mobility [place] and Safety Outcome: Progressing Problem: Communication Impairment [...] Progressing Problem: Mobility Impairment Goal: Optimal Mobility [place] and Safety Outcome: Progressing * Nursing Notes [...] Ongoing * Plan of Care - Grace Meyer, OT - 11/09/2024 10:15 AM EDT Problem: [...] Outcome: Ongoing * Plan of Care - Nimo Chopra MD - 11/09/2024 6:20 AM EDT [...] Neurosurgery will sign-off. Please call with questions. Nimo Chopra MD, Neurosurgery NS1 ([phone]) * Plan [...] RN Right heel blanchable [facility] Miscellaneous Notes* Plan of Care - [...] Discharge Problem: Mobility Impairment Goal: Optimal Mobility [place] and Safety Outcome: Adequate for Discharge Problem: [...] Progressing Problem: Mobility Impairment Goal: Optimal Mobility [place] and Safety Outcome: Progressing Problem: Communication Impairment [...] Progressing Problem: Mobility Impairment Goal: Optimal Mobility [place] and Safety Outcome: Progressing * Nursing Notes [...] Outcome: Ongoing * Plan of Care - Nimo Chopra MD - 11/09/2024 6:20 AM EDT [...] Neurosurgery will sign-off. Please call with questions. Nimo Chopra MD, Neurosurgery NS1 ([phone]) * Plan [...] was performed by MICAH Rivera and Teresa Long, RN. Skin Assessment: Skin not within defined limits. - Photo taken and uploaded into notes in IHIS: Yes Brent Score: 16 LDA Added:No Shelby Mae RN Right heel blanchable [facility] Nurse Note* Nursing Notes - Shanna Benavides RN - 11/12/2024 3:42 PM EDT Report called to [facility] History of Present illness Narrative* KEY Cast - 11/12/2024 12:59 PM EDT Care Management Discharge Note Selected Continued Care - Admitted Since 11/07/2024 Destination Coordination complete. Service Provider Services Address Phone Fax Patient Preferred [facility] [address] [facility] [place] [address] [phone] -- Transport Request Mode of Transfer: S Name of Discharge Transport Company: ([facility]) Discharge Transport ETA: 3pm Patient medically stable for discharge per physician/medical team. Patient/Education Managers remain inagreement with the discharge plan. JEREMI Cast LSW Belt Maker Available by Secure Chat * Karen Johnson, PT - 11/12/2024 12:29 PM EDT Acute Physical Therapy Treatment Prior Gross Functional Mobility: used device, independent Current AM-PAC score(s): CURRENT AM-PAC Mobility Raw Score: 15 Based on the above AM-PAC score(s) and PT clinical judgment, patient is a good candidate for discharge to Shelter Facility Barriers to discharge home: Patient needs [...] break Mobility Assessment/Intervention: Supine to Sit Mobility [place] Level: Supine->Sit: minimum assist (75% patient effort) Bed Features/Set-up: Supine->Sit: Head of bed elevated, Use of bed rail Skilled Rationale: Positioning, Sequencing, Hand placement, Verbal cues Skilled Intervention/Details: Supine->Sit: increased time and step by step cues for sequencing Transfer Assessment/Intervention: Sit to Stand Transfer [place] Level: Sit->Stand: minimum assist (75% patient effort) [...] control each stand to sit Bed-Chair Transfer [place] Level: Bed<->Chair: moderate assist (50% patient effort) Physical Assist: Bed<->Chair: 2 person assist Assistive Device: Bed<->Chair: gait belt, hand held assist Skilled Rationale: Positioning, Sequencing, Hand placement, Verbal cues Skilled Intervention/Details: Bed<->Chair: Pt completed bed to chair transfer with arm and arm assist, pt required increased time but able to complete x 2-3 steps Gait/Functional Mobility Assessment/Intervention: Gait Assessment Flagler Level: Gait: minimum assist (75% patient effort) [...] to complete Stairs Assessment/Intervention: Outcome Score(s): CURRENT [facility] Basic Mobility Inpatient Short Form Turning over [...] with a railin - Total Assistance CURRENT [facility] Mobility Raw Score: 15 CURRENT [facility] Mobility Functional Limitation: 57.70% Impaired in Basic [...] OT clinical judgment, discharge destination recommendation is: Shelter Facility Barriers to discharge home: Patient needs [...] shift Mobility Assessment/Intervention: Supine to Sit Mobility [place] Level: Supine->Sit: minimum assist (75% patient effort) Bed Features/Set-up: Supine->Sit: Head of bed elevated, Use of bed rail Skilled Rationale: Tactile cues, Verbal cues Skilled Intervention/Details: Supine->Sit: step by step sequencing cues and assist at LEs Transfer Assessment/Intervention: Sit to Stand Transfer [place] Level: Sit->Stand: minimum assist (75% patient effort) [...] anterior weight shift Stand to Sit Transfer [place] Level: Stand->Sit: minimum assist (75% patient effort) Assistive Device: Stand->Sit: gait belt, front-wheeled walker, armed chair Skilled Rationale: Hand placement, Verbal cues, Controlled descent for sitting Skilled Intervention/Details: Stand->Sit: cues for proximity to chair and reaching back to arm rest with fair eccentric control Bed-Chair Transfer [place] Level: Bed<->Chair: moderate assist (50% patient effort) Physical Assist: Bed<->Chair: 2 person assist Assistive Device: Bed<->Chair: gait belt, hand held assist Skilled Rationale: Verbal cues, Tactile cues Skilled Intervention/Details: Bed<->Chair: pivot transfer to left with bilat arm in arm, assist to weight shift bilat to progress feet Functional Mobility: Functional Mobility [place] Level: Functional Mobility/Gait: minimum assist (75% patient [...] ww, close chair follow Outcome Score(s): CURRENT [facility] Daily Activity Inpatient Short Form Putting on/Taking Off Lower Body Clothin - Total Assistance Bathin - A Lot of Assistance Toiletin - Total Assistance Putting on/Taking Off Upper Body Clothin - A Little Assistance Groomin - A Little Assistance Eatin - No Assistance CURRENT [facility] Activity Raw Score: 14 CURRENT [facility] Activity Functional Limitation/Modifier: 59.67% Currently Impaired in [...] @ 3:00pm Pick-up from 0E 1078/A Destination [facility] [address] [place] [id number] [address] Care Management Paper Bags Sewing Machine Operator * MOIRA Lowe - 11/11/2024 1:38 PM EDT Psychosocial Assessment Per chart review, patient is an 78 year old female who presents with concern for slurred speech/word finding difficulty. Infrastructure Solutions Architect met with patient to introduce self, explain social work role during the inpatient stay and answer patient questions. Patient was alert and oriented x 4 and agreeable to social work visit. Information Source Information Source Information Source: patient Information Source Name: Sarah Mcguire Information Source Number: [phone] Considerations for the Medical Team: Patient has [...] issues: Positive tox screen: No Cultural, Spiritual, Sabianism Practices Cultural or zoroastrian practices that may impact discharge planning and/or [...] No needs at this time. CHIOMA Quesada Quilt Stuffer * MOIRA Lowe - 11/11/2024 1:33 PM EDT 11/11/24 1332 Social Work Screenings Screening patient has qualified for Trauma Patient appropriate for screening? Yes Trauma Screening Were you using substances at the time of the accident? No Is alcohol use a problem? No Interventions Intervention Needed? No CHIOMA Quesada Quilt Stuffer * Angel Melendrez MD - 11/11/2024 9:16 AM EDT [facility] Medicine Daily Progress Note Patient: Sarah Mcguire, [...] events captured on EEG. - Continue keppra 26986 mg BID Hypertensive Urgency: SBP in 200's [...] Weight PHYSICAL EXAM Gen: A, A, NAD, CREEK ENT: MMM Resp: CTA & P bilat, normal effort Cardio: RRR, normal S1, S2, No TRISTAN GI: S/NT/ND, NABS Psych: Ox3, appropriate affect and cognition DATA REVIEW WBC/Hgb/Hct/Plts: 5.77/10.2/29.3/193 (11/12 435) Na/K+/Phos/Mg/Ca: 130/4.3/--/--/-- (11/12 435) Bun/Creat/Cl/CO2/Glucose: 15/0.93/98/24/95 (11/12 435) * Angel Melendrez MD - 11/10/2024 7:35 AM EDT [facility] Medicine Daily Progress Note Patient: Sarah Mcguire, [...] Weight PHYSICAL EXAM Gen: A, A, NAD, CREEK ENT: MMM Resp: CTA & P bilat, normal effort Cardio: RRR, normal S1, S2, No TRISTAN GI: S/NT/ND, NABS Psych: Ox3, appropriate affect and cognition DATA REVIEW WBC/Hgb/Hct/Plts: 9.67/11.1/31.4/205 (11/10 338) Na/K+/Phos/Mg/Ca: 132/4.7/--/--/-- (11/10 338) Bun/Creat/Cl/CO2/Glucose: 16/0.78/99/25/96 (11/10 338) * TERRY Loja - 11/09/2024 3:43 PM EDT Acute Care Speech Therapy Screen Note ? [facility] speech/language/cognitive consult received and chart review completed [...] this time. If concerns arise, recommend outpatient [facility] services. Time in: 0 Time out: 0 Speech-Language Pathologist TERRY Loja * Karen Johnson, PT - 11/09/2024 10:35 AM EDT Acute Physical Therapy Evaluation Prior Gross Functional Mobility: used device, independent Current AM-PAC score(s): CURRENT AM-PAC Mobility Raw Score: 10 Based on the above AM-PAC score(s) and PT clinical judgment, patient is a good candidate for discharge to Shelter Facility Barriers to discharge home: Patient needs [...] noted Mobility Assessment: Supine to Sit Mobility [place] Level: Supine->Sit: moderate assist (50% patient effort) [...] assist Transfer Assessment: Sit to Stand Transfer [place] Level: Sit->Stand: minimum assist (75% patient effort) Physical Assist: Sit->Stand: 2 person assist Assistive Device: Sit->Stand: gait belt, hand held assist Skilled Rationale: Positioning, Sequencing, Hand placement, Verbal cues Skilled Intervention/Details: Sit->Stand: pt educated in sit to stand transfer with min assist of 2 and arm and arm assist, pt completed sit to stand from EOB and bedside commode Bed-Chair Transfer Flagler Level: Bed<->Chair: moderate assist (50% patient effort) [...] steps Gait/Functional Mobility: Stairs: Outcome Score(s): CURRENT AM-PAC Basic Mobility Inpatient [...] with a railin - Total Assistance CURRENT -[facility] Mobility Raw Score: 10 [address]RENT [facility] Mobility Functional Limitation: 76.75% Impaired in Basic [...] Current recommendation is for SNF. Patient prefer [facility]. She had been there in the past. CM will initiate referral today. YI TBD. Initial Discharge Planning Expected Discharge Disposition: Shelter Facility Transportation Available for Discharge: Ambulance Anticipated DME: unknown at this time Anticipated Services at Discharge: Physical Therapy, Occupational Therapy, Outpatient follow up, Shelter Patient Assessment Completed: Initial Legal Next of Kin Does the patient have a Guardian?: No Spouse: No Adult Child(morris), List All Adult Children: Yes Name and Contact information: Alexsandra Grullon [phone] Reviewed and Updated in Demographics? : Yes Advanced Care Planning Has the patient completed Advance Directives?: Completed, Not Available in Medical Record Copy of Advance Directives was requested?: Yes Advance Directives Requested From: Daughter Medication Management Does the patient have prescription insurance coverage? : Yes Is the patient on Anticoagulation? : Yes Provider or Clinic that manages Anticoagulation?: [facility] [address] [place] [phone] [facility] [address] [facility] [address] Living Environment and Support System Is the patient from a facility or halfway?: No Living Environment: House Patient Caregiving Responsibilities: [...] prior to this acute illness?: independent (Patient CREEK and prefers Daughter answer CM questions) Is the patient's baseline functioning changed by this acute illness? : Yes Changes observed : Physical Concerns with patient being able to care for themselves at home? : Yes JEREMI Cast, KEY Belt Maker Available by Secure Chat * Grace Meyer OT - 11/09/2024 10:15 AM EDT Acute Occupational Therapy Evaluation Prior Gross Functional Mobility: used device, independent Current AM-PAC score(s): CURRENT AM-PAC Activity Raw Score: 14 Based on the above AM-PAC score(s) and OT clinical judgment, discharge destination recommendation is: Shelter Facility Barriers to discharge home: Patient needs [...] positioning Toileting Intervention/Details: Transferred to and from [facility] with min Ax2 and stood with min [...] Skilled Intervention/Details: Pt completed static standing at EOB/C with min Ax2 Neuro: Sensation Overall Sensation: Intact Gross Coordination Gross Coordination: bilat UE intact Skin and Edema: Mobility Assessment: Supine to Sit Mobility Flagler Level: Supine->Sit: moderate assist (50% patient effort) Physical Assist: Supine->Sit: 2 person assist Bed Features/Set-up: Supine->Sit: Head of bed elevated Skilled Rationale: Verbal cues Skilled Intervention/Details: Supine->Sit: step by step sequencing cues, increased time, assist at trunk and hips Transfer Assessment: Sit to Stand Transfer Flagler Level: Sit->Stand: minimum assist (75% patient effort) Physical Assist: Sit->Stand: 2 person assist Assistive Device: Sit->Stand: gait belt, hand held assist Skilled Rationale: Verbal cues, Tactile cues, Full extension to upright positioning/posture Skilled Intervention/Details: Sit->Stand: Completed x1 from EOB, x1 from BSC, and x1 from recliner. Bilat arm in arm, tactile cues at hips and cues for full upright posture Bed-Chair Transfer Flagler Level: Bed<->Chair: moderate assist (50% patient effort) [...] to left. Functional Mobility: Outcome Score(s): CURRENT [facility] Daily Activity Inpatient Short Form Putting on/Taking Off Lower Body Clothin - Total Assistance Bathin - A Lot of Assistance Toiletin - Total Assistance Putting on/Taking Off Upper Body Clothin - A Little Assistance Groomin - A Little Assistance Eatin - No Assistance CURRENT -[facility] Activity Raw Score: 14 CURRENT [facility] Activity Functional Limitation/Modifier: 59.67% Currently Impaired [...] Melendrez MD - 11/09/2024 8:36 AM EDT [facility] Medicine Daily Progress Note Patient: Sarah Mcguire, [...] Weight PHYSICAL EXAM Gen: A, A, NAD, CREEK ENT: MMM Resp: CTA & P bilat, [...] No - altered mental status JEREMI Keith, [employer] CONSULTANT-S Quilt Stuffer, Emergency Dept. * МАРИЯ Pete - 11/07/2024 1:44 PM EDT Trauma Response Per EMS ([facility]), patient is Sarah Mcguire 41 Family is not present. EMS states daughter is en route. Pastoral presence provided. Rev. Abraham Stokes M.Div., MA, [facility] [phone] (office) Chaplains are available 27/12 by paging [phone]. 11/07/24 1315 Clinical Encounter Type Visited With Health Care Provider;Patient Visit Type Introduction Crisis Visit Trauma Pastoral Time Spent 15 min Referral Automated Page Interventions Provided Active listening;Supportive presence Plan of Care Continue Visiting [facility] History of Present illness Narrative* KEY Cast - 11/12/2024 12:59 PM EDT Care Management Discharge Note Selected Continued Care - Admitted Since 11/07/2024 Destination Coordination complete. Service Provider Services Address Phone Fax Patient Preferred [facility] [place] [address] [phone] -- Transport Request Mode of Transfer: BLS Name of Discharge Transport Company: ([facility]) Discharge Transport ETA: 3pm Patient medically stable for discharge per physician/medical team. Patient/Education Managers remain inagreement with the discharge plan. JEREMI Cast LSW Belt Maker Available by Secure Chat * Karen Johnson, PT - 11/12/2024 12:29 PM EDT Acute Physical Therapy Treatment Prior Gross Functional Mobility: used device, independent Current AM-PAC score(s): CURRENT AM-PAC Mobility Raw Score: 15 Based on the above AM-PAC score(s) and PT clinical judgment, patient is a good candidate for discharge to Shelter Facility Barriers to discharge home: Patient needs [...] break Mobility Assessment/Intervention: Supine to Sit Mobility Flagler Level: Supine->Sit: minimum assist (75% patient effort) Bed Features/Set-up: Supine->Sit: Head of bed elevated, Use of bed rail Skilled Rationale: Positioning, Sequencing, Hand placement, Verbal cues Skilled Intervention/Details: Supine->Sit: increased time and step by step cues for sequencing Transfer Assessment/Intervention: Sit to Stand Transfer Flagler Level: Sit->Stand: minimum assist (75% patient effort) [...] control each stand to sit Bed-Chair Transfer Flagler Level: Bed<->Chair: moderate assist (50% patient effort) Physical Assist: Bed<->Chair: 2 person assist Assistive Device: Bed<->Chair: gait belt, hand held assist Skilled Rationale: Positioning, Sequencing, Hand placement, Verbal cues Skilled Intervention/Details: Bed<->Chair: Pt completed bed to chair transfer with arm and arm assist, pt required increased time but able to complete x 2-3 steps Gait/Functional Mobility Assessment/Intervention: Gait Assessment Flagler Level: Gait: minimum assist (75% patient effort) [...] to complete Stairs Assessment/Intervention: Outcome Score(s): CURRENT [facility] Basic Mobility Inpatient Short Form Turning over [...] with a railin - Total Assistance CURRENT [facility] Mobility Raw Score: 15 CURRENT [facility] Mobility Functional Limitation: 57.70% Impaired in Basic [...] current Physical Therapy Discharge Summary. * Grace Meyer, OT - 11/12/2024 11:45 AM EDT Acute Occupational Therapy Treatment Prior Gross Functional Mobility: used device, independent Current AM-PAC score(s): CURRENT AM-PAC Activity Raw Score: 14 Based on the above AM-PAC score(s), and OT clinical judgment, discharge destination recommendation is: Shelter Facility Barriers to discharge home: Patient needs [...] shift Mobility Assessment/Intervention: Supine to Sit Mobility Flagler Level: Supine->Sit: minimum assist (75% patient effort) Bed Features/Set-up: Supine->Sit: Head of bed elevated, Use of bed rail Skilled Rationale: Tactile cues, Verbal cues Skilled Intervention/Details: Supine->Sit: step by step sequencing cues and assist at LEs Transfer Assessment/Intervention: Sit to Stand Transfer Flagler Level: Sit->Stand: minimum assist (75% patient effort) [...] anterior weight shift Stand to Sit Transfer Flagler Level: Stand->Sit: minimum assist (75% patient effort) Assistive Device: Stand->Sit: gait belt, front-wheeled walker, armed chair Skilled Rationale: Hand placement, Verbal cues, Controlled descent for sitting Skilled Intervention/Details: Stand->Sit: cues for proximity to chair and reaching back to arm rest with fair eccentric control Bed-Chair Transfer Flagler Level: Bed<->Chair: moderate assist (50% patient effort) Physical Assist: Bed<->Chair: 2 person assist Assistive Device: Bed<->Chair: gait belt, hand held assist Skilled Rationale: Verbal cues, Tactile cues Skilled Intervention/Details: Bed<->Chair: pivot transfer to left with bilat arm in arm, assist to weight shift bilat to progress feet Functional Mobility: Functional Mobility Flagler Level: Functional Mobility/Gait: minimum assist (75% patient [...] ww, close chair follow Outcome Score(s): CURRENT [facility] Daily Activity Inpatient Short Form Putting on/Taking Off Lower Body Clothin - Total Assistance Bathin - A Lot of Assistance Toiletin - Total Assistance Putting on/Taking Off Upper Body Clothin - A Little Assistance Groomin - A Little Assistance Eatin - No Assistance CURRENT [facility] Activity Raw Score: 14 CURRENT [facility] Activity Functional Limitation/Modifier: 59.67% Currently Impaired in [...] for discharge arranged Mode of Transfer: (P) [facility] Name of Discharge Transport Company: (P) Other ([facility]) Discharge Transport ETA: (P) 11/12/2024 @ 3:00pm Pick-up from [facility]10[facility] 1078/A Destination [address] [address] [facility] Care Management Paper Bags Sewing Machine Operator * Nicholas Carrizales MD - 11/12/2024 10:00 [...] difficulties. Concerning for breakthrough seizure with prior LOAN MANAGER operation, mild increase of prior extra-axial LOAN MANAGER fluid collections. MR scan without stroke. MRA [...] Dr. Ferguson. Please call the Neurology resident sap solutions architect or page Consult Team A on [email or web address] with questions. Signed, Cosigned by Bill Ferguson MD at 11/13/2024 7:22 AM EDT Associated attestation - Bill Ferguson MD - 11/13/2024 7:22 AM EDT I discussed the the assessment and plan for this patient with the resident. Bill Ferguson M.D. Director Of Trauma of Neurology Co-Director of Neurohospitalist Medicine & Teleneurology * Abdirahman WilliamMOIRA - 11/11/2024 1:38 PM EDT Psychosocial Assessment Per chart review, patient is an 78 year old female who presents with concern for slurred speech/word finding difficulty. Infrastructure Solutions Architect met with patient to introduce self, explain social work role during the inpatient stay and answer patient questions. Patient was alert and oriented x 4 and agreeable to social work visit. Information Source Information Source Information Source: patient Information Source Name: Sarah Mcguire Information Source Number: [id number] Considerations for the Medical Team: Patient has [...] issues: Positive tox screen: No Cultural, Spiritual, Sabianism Practices Cultural or zoroastrian practices that may impact discharge planning and/or [...] No needs at this time. CHIOMA Quesada Quilt Stuffer * MOIRA Lowe - 11/11/2024 1:33 PM EDT 11/11/24 1332 Social Work Screenings Screening patient has qualified for Trauma Patient appropriate for screening? Yes Trauma Screening Were you using substances at the time of the accident? No Is alcohol use a problem? No Interventions Intervention Needed? No Abdirahman Cooley MSW, [employer] CONSULTANT-S Quilt Stuffer * Angel Melendrez MD - 11/11/2024 9:16 AM EDT [facility] Medicine Daily Progress Note Patient: Sarah Mcguire, [...] events captured on EEG. - Continue keppra 48649 mg BID Hypertensive Urgency: SBP in 200's [...] Weight PHYSICAL EXAM Gen: A, A, NAD, CREEK ENT: MMM Resp: CTA & P bilat, normal effort Cardio: RRR, normal S1, S2, No TRISTAN GI: S/NT/ND, NABS Psych: Ox3, appropriate affect and cognition DATA REVIEW WBC/Hgb/Hct/Plts: 5.77/10.2/29.3/193 (11/12 435) Na/K+/Phos/Mg/Ca: 130/4.3/--/--/-- (11/12 435) Bun/Creat/Cl/CO2/Glucose: 15/0.93/98/24/95 (11/12 435) * Angel Melendrez MD - 11/10/2024 7:35 AM EDT [facility] Daily Progress Note Patient: Sarah Mcguire, [...] Weight PHYSICAL EXAM Gen: A, A, NAD, CREEK ENT: MMM Resp: CTA & P bilat, normal effort Cardio: RRR, normal S1, S2, No TRISTAN GI: S/NT/ND, NABS Psych: Ox3, appropriate affect and cognition DATA REVIEW WBC/Hgb/Hct/Plts: 9.67/11.1/31.4/205 (11/10 338) Na/K+/Phos/Mg/Ca: 132/4.7/--/--/-- (11/10 338) Bun/Creat/Cl/CO2/Glucose: 16/0.78/99/25/96 (11/10 338) * TERRY Loja - 11/09/2024 3:43 PM EDT Acute Care Speech Therapy Screen Note ? PRECISION LENS GRINDER speech/language/cognitive consult received and chart review completed [...] this time. If concerns arise, recommend outpatient [facility] [facility] services. Time in: 1529 Time out: 1529 Speech-Language Pathologist Radha Yost, PRECISION [employer] GRINDER * Karen Johnson, PT - 11/09/2024 10:35 AM EDT Acute Physical Therapy Evaluation Prior Gross Functional Mobility: used device, independent Current AM-PAC score(s): CURRENT AM-PAC Mobility Raw Score: 10 Based on the above AM-PAC score(s) and PT clinical judgment, patient is a good candidate for discharge to Shelter Facility Barriers to discharge home: Patient needs [...] noted Mobility Assessment: Supine to Sit Mobility Flagler Level: Supine->Sit: moderate assist (50% patient effort) [...] assist Transfer Assessment: Sit to Stand Transfer Flagler Level: Sit->Stand: minimum assist (75% patient effort) Physical Assist: Sit->Stand: 2 person assist Assistive Device: Sit->Stand: gait belt, hand held assist Skilled Rationale: Positioning, Sequencing, Hand placement, Verbal cues Skilled Intervention/Details: Sit->Stand: pt educated in sit to stand transfer with min assist of 2 and arm and arm assist, pt completed sit to stand from EOB and bedside commode Bed-Chair Transfer Flagler Level: Bed<->Chair: moderate assist (50% patient effort) [...] steps Gait/Functional Mobility: Stairs: Outcome Score(s): CURRENT [facility] Basic Mobility Inpatient Short Form Turning over [...] with a railin - Total Assistance CURRENT [facility] Mobility Raw Score: 10 CURRENT [facility] Mobility Functional Limitation: 76.75% Impaired in Basic [...] the current Physical Therapy Discharge Summary. * VAUGHN aCstW - 11/09/2024 10:35 AM EDT Discharge Planning Assessment Is the patient able to participate in the assessment?: Yes Care Management Plan CM met with patient and daughter at bedside, Daughter stated she moved in with patient about a yearago. Daughter assists patient with safety. Current recommendation is for SNF. Patient prefer [facility]. She had been there in the past. CM will initiate referral today. YI TBD. Initial Discharge Planning Expected Discharge Disposition: Shelter Facility Transportation Available for Discharge: Ambulance Anticipated DME: unknown at this time Anticipated Services at Discharge: Physical Therapy, Occupational Therapy, Outpatient follow up, Shelter Patient Assessment Completed: Initial Legal Next of Kin Does the patient have a Guardian?: No Spouse: No Adult Child(morris), List All Adult Children: Yes Name and Contact information: Alexsandra Grullon [phone] Reviewed and Updated in Demographics? : Yes Advanced Care Planning Has the patient completed Advance Directives?: Completed, Not Available in Medical Record Copy of Advance Directives was requested?: Yes Advance Directives Requested From: Daughter Medication Management Does the patient have prescription insurance coverage? : Yes Is the patient on Anticoagulation? : Yes Provider or Clinic that manages Anticoagulation?: [facility] [address] [place] [id number] [phone] [address] Living Environment and Support System Is the patient from a facility or halfway?: No Living Environment: House Patient Caregiving Responsibilities: [...] prior to this acute illness?: independent (Patient CREEK and prefers Daughter answer CM questions) Is the patient's baseline functioning changed by this acute illness? : Yes Changes observed : Physical Concerns with patient being able to care for themselves at home? : Yes JEREMI Cast, MANAGER ONLINE Belt Maker Available by Secure Chat * Grace Meyer OT - 11/09/2024 10:15 AM EDT Acute Occupational Therapy Evaluation Prior Gross Functional Mobility: used device, independent Current AM-PAC score(s): CURRENT AM-PAC Activity Raw Score: 14 Based on the above AM-PAC score(s) and OT clinical judgment, discharge destination recommendation is: Shelter Facility Barriers to discharge home: Patient needs [...] positioning Toileting Intervention/Details: Transferred to and from [facility] with min Ax2 and stood with min [...] Edema: Mobility Assessment: Supine to Sit Mobility Flagler Level: Supine->Sit: moderate assist (50% patient effort) Physical Assist: Supine->Sit: 2 person assist Bed Features/Set-up: Supine->Sit: Head of bed elevated Skilled Rationale: Verbal cues Skilled Intervention/Details: Supine->Sit: step by step sequencing cues, increased time, assist at trunk and hips Transfer Assessment: Sit to Stand Transfer Flagler Level: Sit->Stand: minimum assist (75% patient effort) Physical Assist: Sit->Stand: 2 person assist Assistive Device: Sit->Stand: gait belt, hand held assist Skilled Rationale: Verbal cues, Tactile cues, Full extension to upright positioning/posture Skilled Intervention/Details: Sit->Stand: Completed x1 from EOB, x1 from BSC, and x1 from recliner. Bilat arm in arm, tactile cues at hips and cues for full upright posture Bed-Chair Transfer Flagler Level: Bed<->Chair: moderate assist (50% patient effort) [...] to left. Functional Mobility: Outcome Score(s): CURRENT AM-PAC Daily Activity Inpatient Short Form Putting on/Taking Off Lower Body Clothin - Total Assistance Bathin - A Lot of Assistance Toiletin - Total Assistance Putting on/Taking Off Upper Body Clothin - A Little Assistance Groomin - A Little Assistance Eatin - No Assistance CURRENT AM-PAC Activity Raw Score: 14 CURRENT AM-PAC Activity Functional Limitation/Modifier: 59.67% Currently Impaired in [...] Melendrez MD - 11/09/2024 8:36 AM EDT [facility] Medicine Daily Progress Note Patient: Sarah Mcguire, [...] Weight PHYSICAL EXAM Gen: A, A, NAD, CREEK ENT: MMM Resp: CTA & P bilat, [...] for screening? No - altered mental status Sharlene Gilman MSW, [employer] CONSULTANT-S Quilt Stuffer, Emergency Dept. * МАРИЯ Pete - 11/07/2024 1:44 PM EDT Trauma Response Per EMS ([facility]), patient is Sarah Mcguire 41 Family is not present. EMS states daughter is en route. Pastoral presence provided. Rev. Abraham Stokes M.Div., MA, [facility] [phone] (office) Chaplains are available 27/12 by paging [phone]. 11/07/24 1318 Clinical Encounter Type Visited With Health Care Provider;Patient Visit Type Introduction Crisis Visit Trauma Pastoral Time Spent 15 min Referral Automated Page Interventions Provided Active listening;Supportive presence Plan of Care Continue Visiting [facility] Plan of care note* Plan of Care - Karen Johnson PT [...] safely navigate home and community. [facility] of care note* Plan of [...] or less cues for accuracy. Outcome: Progressing [facility]06-[facility] Plan of care note* Plan of Care - Shanna Benavides RN - 11/12/2024 9:00 AM EDT Problem: Adult Inpatient Plan of Care Goal: Optimal Comfort and Wellbeing Intervention: Provide Person-Centered Care Flowsheets (Taken 11/12/2024 0859) Trust Relationship/Rapport: care explained emotional support provided empathic listening provided questions answered [facility]06-08-[facility] Plan of care note* Plan of [...] Progressing Problem: Mobility Impairment Goal: Optimal Mobility Flagler and Safety Outcome: Progressing Problem: Communication Impairment Goal: Effective Communication Skills Outcome: Progressing [facility]06-07-[facility] Nurse Note* Nursing Notes - Greta [...] (%) 98 % 97 % 98 % [facility] Plan of care note* Plan of [...] Progressing Problem: Mobility Impairment Goal: Optimal Mobility [place] and Safety Outcome: Progressing [facility]06-[facility] Nurse Note* Nursing Notes - Greta [...] Device room air room air room air [facility]06-06-[facility] Plan of care note* Plan of [...] or less cues for accuracy. Outcome: Progressing [facility]06[facility] Plan of care note* Plan of [...] safely navigate home and community. Outcome: Ongoing [facility] Plan of care note* Plan of Care - Grace Meyer, OT - 11/09/2024 10:15 AM EDT Problem: [...] or less cues for accuracy. Outcome[facility] Consult note* Jagdish Galindo Jr., MD [...] cardiology Jagdish Galindo MD PGY-4 Internal Medicine-Pediatrics [facility] Pager #: [phone] Reason for consult - 78 yo F [...] Interviewed the patient and adult daughter at [facility], and they relate that she was in [...] for the flight team. Admitted to the [facility] with neurosurgery consultation, received Kcentra at [facility]. Daughter and patient confirm the above information at bedside, adding that the word finding issues have been an ongoing recent problem. 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 Postoperatively, [...] word finding issue suddenly worsened while at [facility] study as above. She did not note any other neurologic deficits. S States that the noted intracranial hematoma appears to be old (I.e. a prior known hematoma collection from 2022 related to a meningioma resection completed at that time). Of note, daughter also reports that they follow with a non-[facility] asset management lead in their home town, adding that her HR has been muchlower than baseline over the past 2-4 weeks. Medications history reviewed with adult daughter, and she is currently taking amiodarone and apixaban for pAF, previously taking 2.5 mg lisinopril but not currently, currently taking doxazosin for HTN, and carvedilol 12.5 mg BID per her asset management lead. 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 Constitutional: Appears well. CREEK at baseline, No acute distress. Weight appropriate [...] the geriatric consult service. Pebbles Gu MD Line Construction Engineer of Clinical Medicine Geriatric Medicine [address] [facility] Work Phone: 1(186) 426-302106-06-2025 Consult note* Jagdish Galindo Jr., MD - [...] MD PGY-4 Internal Medicine-Pediatrics [facility] Pager #: [phone] Reason for consult - 78 yo F here as level 2 trauma, acute on chronic subdural hematoma - trauma surgery recs for fatmata c/s for co-mx Admission date and reason - 11/08/24, slurred speech/word finding difficulty Primary Service - 6 PCP - Monika Venegas [facility] - The history was obtained from patient, [...] Interviewed the patient and adult daughter at [facility], and they relate that she was in [...] for the flight team. Admitted to the [facility] with neurosurgery consultation, received Kcentra at OSH. Daughter and patient confirm the above information at bedside, adding that the word finding issues have been an ongoing recent problem. 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 Postoperatively, [...] word finding issue [facility]. She did not note any other neurologic deficits. S States that the noted intracranial hematoma appears to be old (I.e. a prior known hematoma collection from 2022 related to a meningioma resection completed at that time). Of note, daughter also reports that they follow with a non-[facility] asset management lead in their home town, adding that her HR has been muchlower than baseline over the past 2-4 weeks. Medications history reviewed with adult daughter, and she is currently taking amiodarone and apixaban for pAF, previously taking 2.5 mg lisinopril but not currently, currently taking doxazosin for HTN, and carvedilol 12.5 mg BID per her asset management lead. 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 Constitutional: Appears well. CREEK at baseline, No acute distress. Weight appropriate [...] the geriatric consult service. Pebbles Gu MD Line Construction Engineer of Clinical Medicine Geriatric Medicine [id number] * Greta Tabares MD - 11/07/2024 4:26 PM EDT TRAUMA SERVICES - TRAUMA H & P Patient Name: Sarah Mcguire 78 y.o. female Date of Evaluation: 11/07/2024 Trauma Attending: Dr. Bailey [facility]: TRAUMA LEVEL: Level 2 Trauma Inter-facility Transfer: No Sarah Mcguire is a 78 y.o. female transported to [facility] s/p slurred speech and c/f possible head strike earlier this week. Per EMS Slurred speech, unsteady gaitwhile at [facility] study. PMH intracranial bleed, craniotomy for tumor [...] Admission: Handoff Called to Fellow - Pager [phone] [place] [phone] If there are any questions or concerns, please see the treatment team or page the Consult Resident #[id number] (Web Exchange, search Acute Care Surgery > [...] the patient, available family, medical records, or server support technician. I agree with resident exam, assessment and [...] geriatric consult. Signed Smiley Bailey MD MPH egg processing supervisor Division of Trauma, Critical Care, Burn * [...] < 160 Staff: Dr. Kincaid Covering: NS1 ([id number]) ## neurosurgery coverage changes at 0530/0; if 0530 or 1730 has passed since original consult note placed, please page covering pager above ## Complexity. Hyponatremia - Secondary to fluid shifts. Monitor. Hypocalcemia - Continue to monitor and replete. Wound Documentation Any conditions listed below are present on admission unless otherwise specified. . Cosigned by Ernie Kincaid MD at 11/08/2024 9:48 AM EDT documented in this [facility] Consult note* Jagdish Galindo Jr., MD [...] MD PGY-4 Internal Medicine-Pediatrics [facility] Pager #: [phone] Reason for consult - 78 yo F here as level 2 trauma, acute on chronic subdural hematoma - trauma surgery recs for fatmata c/s for co-mx Admission date and reason - 11/08/24, slurred speech/word finding difficulty Primary Service - 6 PCP - Monika Venegas [facility] - The history was obtained from patient, [...] Interviewed the patient and adult daughter at [facility], and they relate that she was in [...] for the flight team. Admitted to the [facility] with neurosurgery consultation, received Kcentra at OSH. Daughter and patient confirm the above information at bedside, adding that the word finding issues have been an ongoing recent problem. 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 Postoperatively, [...] word finding issue suddenly worsened while at [facility] study as above. She did not note any other neurologic deficits. S States that the noted intracranial hematoma appears to be old (I.e. a prior known hematoma collection from 2022 related to a meningioma resection completed at that time). Of note, daughter also reports that they follow with a non-[facility] asset management lead in their home town, adding that her HR has been muchlower than baseline over the past 2-4 weeks. Medications history reviewed with adult daughter, and she is currently taking amiodarone and apixaban for pAF, previously taking 2.5 mg lisinopril but not currently, currently taking doxazosin for HTN, and carvedilol 12.5 mg BID per her asset management lead. 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 Constitutional: Appears well. CREEK at baseline, No acute distress. Weight appropriate [...] the geriatric consult service. Pebbles Gu MD Line Construction Engineer of Clinical Medicine Geriatric Medicine [id number] * Greta Tabares MD - 11/07/2024 4:26 PM EDT TRAUMA SERVICES - TRAUMA H & P Patient Name: Sarah Mcguire 78 y.o. female Date of Evaluation: 11/07/2024 Trauma Attending: Dr. Bailey [facility]: TRAUMA LEVEL: Level 2 Trauma Inter-facility Transfer: Bee Mcguire is a 78 y.o. female transported to [facility] s/p slurred speech and c/f possible [...] Discussed with Trauma Attending: Dr. Leo Silver Maynor is a 78 y.o. s/p slurred speech [...] Admission: Handoff Called to Fellow - Pager [phone] [place] [phone] If there are any questions or concerns, please see the treatment team or page the Consult Resident #[id number] (Web Exchange, search Acute Care Surgery > [...] the patient, available family, medical records, or server support technician. I agree with resident exam, assessment and [...] geriatric consult. Signed Smiley Bailey MD MPH egg processing supervisor Division of Trauma, Critical Care, Burn * [...] BY CRANIOTOMY Left 11/16/2022 Laterality: Left; Surgeon: Ernei Kincaid MD; Location: [...] hours as needed for Mild Pain. 12/06/22 Kristin Lara APRN-DRY CLEANER AMIOdarone 200 MG tablet 01/07/23 Historical Provider apixaban (Eliquis) 5 MG tablet 01/01/23 Historical Provider Atorvastatin 10 MG tablet Take 1 tablet by mouth at bedtime. Historical Provider carveDILOL 12.5 MG tablet 1 tablet by Per NG tube route every 12 hours. 12/06/22 01/05/23 Kristin Lara, PRINCIPAL SCIENTIST-DRY CLEANER Doxazosin 2 MG tablet Take 1 tablet [...] painful stimulation throughout. Labs WBC/Hgb/Hct/Plts: 6.74/10.5/33/169 (11/07 1253-11/07 1318) Na/K+/Phos/Mg/Ca: 128/4.3/--/--/-- (11/07 1318) Bun/Creat/Cl/CO2/Glucose: --/--/--/--/102 [...] a large plastics scalp reconstruction with Dr. Kye in 11/2022 c/b an emergent left frontal [...] < 160 Staff: Dr. Kincaid Covering: NS1 ([id number]) ## neurosurgery coverage changes at 0530/1730; if [...] 9:48 AM EDT [facility] Discharge instructions* Discharge Instructions* Shannon Werner RN - 11/09/2024 9:18 AM EDT Patient Experience Survey Reminder You may receive a survey in the mail within a few weeks regarding your hospitalization. This helps us to improve the care and services we provide at [facility]. We truly appreciate you taking the time to fill this out. We particularly welcome any specific comments you may have (good or bad!) regarding [facility] so that we may use them to continue to strive towards excellence for our patients. documented in this [facility] Hospital Discharge instructions* Discharge Instructions* Shannon Werner RN - 11/09/2024 9:18 AM EDT Patient Experience Survey Reminder You may receive a survey in the mail within a few weeks regarding your hospitalization. This helps us to improve the care and services we provide at [facility]. We truly appreciate you taking the time to fill this out. We particularly welcome any specific comments you may have (good or bad!) regarding your experienceat [facility] so that we may use them to continue to strive towards excellence for our patients. documented in [facility] Procedure note* FABY Jacques - 11/09/2024 [...] this period of recording. Brittaney Ferraro MD Line Construction Engineer Department of Neurology and Epilepsy [facility] Work Phone: 1(530) 950-312206-06-2025 Procedure note* FABY Jacques - 11/09/2024 8:56 [...] this period of recording. Brittaney Ferraro MD Line Construction Engineer Department of Neurology and Epilepsy [facility] documented in this encounter[facility] Procedure note* FABY Jacques - 11/09/2024 [...] this period of recording. Brittaney Ferraro MD Line Construction Engineer Department of Neurology and Epilepsy [facility] documented in this encounterA[facility]06-[facility] Plan of care note* Plan of Care - Nimo Chopar MD - 11/09/2024 6:20 AM EDT Neurosurgery [...] Neurosurgery will sign-off. Please call with questions. Nimo Chopra MD, Neurosurgery NS1 ([id number]) [facility] Work Phone: 1(129) 889-573906-05-2025 Plan of care note* Plan of Care - Joce Calvo RN - 11/08/2024 9:06 PM EDT Problem: Adult Inpatient Plan of Care Goal: Plan of Care Review Outcome: Progressing Goal: Patient-Specific Goal (Individualized) Outcome: Progressing Goal: Absence of Hospital-Acquired Illness or Injury Outcome: Progressing Goal: Optimal Comfort and Wellbeing Outcome: Progressing Goal: Readiness for Transition of Care Outcome: Progressing [facility] Nurse Note* Nursing Notes - Shelby Mae RN - 11/08/2024 4:46 PM EDT Images from the original note were not included. On admission to [facility], from ED a dual RN initial assessment of skin condition was performed by MICAH Rivera and Teresa Long RN. Skin Assessment: Skin not within defined limits. - Photo taken and uploaded into notes in IHIS: Yes Brent Score: 16 LDA Added:No Shelby Mae RN Right heel blanchable [facility] History and physical note* JESSIE Bone [facility] - 11/08/2024 2:23 PM EDT Hospital Medicine Admission History & Physical Patient: Sarah Mcguire, 1945, [id number] Physician: JESSIE Bone [facility], Attending Physician Date of face to face [...] IV keppra BID. Plan to admit to [facility]. REVIEW OF SYSTEMS Constitutional (- fever, chills, [...] weight on file to calculate BMI. Imaging: [facility] CTH 11/07 - 1.2 cm thick epidural collection of fluid under the cranioplasty but above the dural layer, no midline shift CT 11/07 6 hour interval scan - stable without interval progression, no midline shift ECG: Sinus bradycardia, no ST segment changes Signed, JESSIE Bone [facility] Line Construction Engineer of Internal Medicine Division of Hospital Medicine [facility], [facility] History and physical note* JESSIE Bone [facility] - 11/08/2024 2:23 PM EDT Hospital Medicine Admission History & Physical Patient: Sarah Mcguire, 1945, [id number] Physician: JESSIE Bone [facility], Attending Physician Date of face to face [...] IV keppra BID. Plan to admit to [facility]. REVIEW OF SYSTEMS Constitutional (- fever, chills, [...] no ST segment changes Signed, JESSIE Bone [facility] Line Construction Engineer of Internal Medicine Division of Hospital Medicine [facility] documented in this encounter[facility] History and physical note* JESSIE Bone [facility] - 11/08/2024 2:23 PM EDT Hospital Medicine Admission History & Physical Patient: Sarah Mcguire, 1945, [id number] Physician: JESSIE Bone [facility], Attending Physician Date of face to face [...] IV keppra BID. Plan to admit to [facility]. REVIEW OF SYSTEMS Constitutional (- fever, chills, [...] Surgeon: Ernie Kincaid MD; [facility] 1996 BREAST [...] no ST segment changes Signed, JESSIE Bone [facility] Line Construction Engineer of Internal Medicine Division of Hospital Medicine [facility] documented in this encounterAultman Hospital06-05-2025 Emergency department Note* Ann Diaz RN - 11/08/2024 12:07 PM EDT Pt has been germania- HR 42-49. Dr Johnson aware. No intervention as long at pt is saturating appropriately [facility] Emergency department Note* Ann Diaz RN [...] eNCOUnter Patient: Sarah Mcguire : 1945 MR#: [id number] Primary Care Provider: Monika Venegas Date of Exam: 11/07/2024 CHIEF COMPLAINT No chief complaint on file. HPI Sarah Mcguire is a 78 y.o. 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 Brief History: Patient had slurred speech, unsteady gait while at [facility]. EMS report patient hit her head [...] Treatment Pre-Arrival Treatment: hospital transfer EMS Agency: 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 Cindy Coffey MD Resident 11/07/24 1654 * Lopez Farnsworth RN - 11/07/2024 1:30 PM EDT Bed: E021 Expected date: Expected time: Means of arrival: Comments: 34 * Octavio Pinon RPH - 11/07/2024 1:28 PM EDT Department of Pharmacy - Trauma Note Patient: Sarah Mcguire Room/Bed: E034/E034 Level 2 trauma s/p Fall with SDH found at [facility] Medications received prior to arrival: Balfaxar 2500 units @1130 Prophylactic Antibiotics: n/a Tetanus: N/A Patient is on eliquis. Please feel free to contact me with any further questions. Name: Octavio Pinon RPH Phone #: [phone] Date/Time: 11/07/2024 1:29 PM * Ignacio De [...] (Oral) Resp 20 SpO2 98% Smoking StatusNever [place] Coma Scale Best Eye Response: 4-->(E4) spontaneous Best Motor Response: 6-->(M6) obeys commands Best Verbal Response: 5-->(V5) oriented [place] Coma Scale Score: 15 Primary Assessment Airway [...] EKG Interpretation Rhythm: normal sinus Rate: normal Olla: normal Ectopy: none Conduction: normal ST Segments: [...] 0.69 (L) 1.16 - 3.51 K/uL Abs Dickens Auto 0.62 0.22 - 0.87 K/uL Abs [...] to Level 2 [facility]. Emergency Contacts: Alexsandra, elba [phone] Per EMS patient's daughter is en route to [facility]. SW will be available for support as needed while patient is in the ED. Edy BLOOD, [facility] Medical Social Work * Minna Swenson RN - 11/07/2024 1:05 PM EDT Patient arrives to trauma bay now. Slurred speech, unsteady gait while at [facility] study. PMH intracranial bleed, craniotomy for tumor [...] to clarify BP parameters [facility]06-05-20[facility] Emergency department Note* Ann Diaz RN [...] eNCOUnter Patient: Sarah Mcguire : 1945 MR#: [id number] Primary Care Provider: Monika Venegas Date of Exam: 11/07/2024 CHIEF COMPLAINT No chief complaint on file. HPI Sarah Mcguire is a 78 y.o. 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 Cindy Coffey MD Resident 11/07/24 1654 * Lopez Fanrsworth RN - 11/07/2024 1:30 PM EDT Bed: E021 Expected date: Expected time: Means of arrival: Comments: 34 * Octavio Pinon RPH - 11/07/2024 1:28 PM EDT Department of Pharmacy - Trauma Note Patient: Sarah Mcguire Room/Bed: E034/E034 Level 2 trauma s/p Fall with SDH found at [facility] Medications received prior to arrival: Balfaxar 2500 units @1130 Prophylactic Antibiotics: n/a Tetanus: N/A Patient is on eliquis. Please feel free to contact me with any further questions. Name: Octavio Pinon RPH Phone #: [phone] Date/Time: 11/07/2024 1:29 PM * Ignacio De [...] obeys commands Best Verbal Response: 5-->(V5) oriented [place] Coma Scale Score: 15 Primary Assessment Airway [...] EKG Interpretation Rhythm: normal sinus Rate: normal Olla: normal Ectopy: none Conduction: normal ST Segments: [...] 0.69 (L) 1.16 - 3.51 K/uL Abs Dickens Auto 0.62 0.22 - 0.87 K/uL Abs [...] to Level 2 Trauma brought in by [employer] 5 after patient fell. Emergency Contacts: Alexsandra, child [phone] Per EMS patient's daughter is en route to [facility]. SW will be available for support as needed while patient is in the ED. Edy BLOOD, [facility] Medical Social Work * Minna Swenson RN - 11/07/2024 1:05 PM EDT Patient arrives to trauma bay now. Slurred speech, unsteady gait while at [facility] study. [facility] intracranial bleed, craniotomy for tumor (2022). 200/60 [...] to clarify BP parameters documented in this [facility]OS[facility]icking [facility]06-[facility]-2025 Emergency department Note* nAn Diaz RN - 11/08/2024 8:[address] Johnson, pt is allowed to eat. Pt given breakfast. Pt passed bedside swallow. [facility]06-05[facility] Emergency department Note* Nalini Barnett RN - 11/08/2024 6:15 AM EDT Pt incontinent at this time. Total linen change, new brief and purwick in place. [facility]06-04-[facility] Emergency department Note* Tiff Rodriguez RN - 11/07/2024 6:05 PM EDT Pt states dull pain across forehead that is new, no changes in neuro exam. Md notified [facility]06-04-[facility] Consult note* Greta Tabares MD - 11/07/2024 4:26 PM EDT TRAUMA SERVICES - TRAUMA H & P Patient Name: Sarah Mcguire 78 y.o. female Date of Evaluation: 11/07/2024 Trauma Attending: Dr. Leo GARDNER: TRAUMA LEVEL: Level 2 Trauma Inter-facility Transfer: Bee Mcguire is a 78 y.o. female transported to [facility] s/p slurred speech and c/f possible head strike earlier this week. Per EMS Slurred speech, unsteady gaitwhile at [facility] study. PMH intracranial bleed, craniotomy for tumor [...] SKULL DEFECT Left 11/16/2022 Laterality: Left; Surgeon: aSray Key MD, PhD; [facility] MA[facility] OR EXCISION SKULL LESION TUMOR W/ CRANIECTOMY W/ OR W/O GRAFT Left 10/13/2022 Laterality: Left; Surgeon: Ernie Kincaid MD; [facility] BREAST LUMPECTOMY [...] Time Discussed with Trauma Attending: Dr. Leo Singhpawan is a 78 y.o. s/p slurred speech [...] Admission: Handoff Called to Fellow - Pager [phone] [place] [phone] If there are any questions or concerns, please see the treatment team or page the Consult Resident #[id number] (Web Exchange, search Acute Care Surgery > [...] the patient, available family, medical records, or server support technician. I agree with resident exam, assessment and [...] geriatric consult. Signed Smiley Bailey MD MPH egg processing supervisor Division of Trauma, Critical Care, Burn [facility] Work Phone: 1(327) 165-800006-04-2025 Consult note* Ernie Bowens MD - 11/07/2024 [...] in the context ofword find difficulties at [facility] study. OSH CTH showed a 1.2 cm [...] < 160 Staff: Dr. Kincaid Covering: NS1 ([id number]) ## neurosurgery coverage changes at 0530/1730; if 0530 or 1730 has passed since original consult note placed, please page covering pager above ## Complexity. Hyponatremia - Secondary to fluid shifts. Monitor. Hypocalcemia - Continue to monitor and replete. Wound Documentation Any conditions listed below are present on admission unless otherwise specified. . Cosigned by Ernie Kincaid MD at 11/08/2024 9:48 AM EDT [facility] Work Phone: 1(470) 852-866706-04-2025 NoteAcute Coronary Syndrome (ACS): Initial Evaluation and Management: [email or web address] general medical [email or web address] [email or web address] [facility]06-04-2025 NoteAcute Coronary Syndrome (ACS): Initial Evaluation and Management: [email or web address]%[email or web address] [email or web address]#search=[email or web address] [facility]06-04-2025 Emergency department Note* Minna Swenson RN - 11/07/2024 1:31 PM EDT Transport to CT on monitor with RN, Resident. [facility]06-04-2025 Physician Emergency department Note* Cindy Coffey MD - 11/07/2024 1:30 PM EDT eMERGENCY dEPARTMENT eNCOUnter Patient: Sarah Mcguire : 1945 MR#: [id number] Primary Care Provider: Monika Venegas Date of Exam: 11/07/2024 CHIEF COMPLAINT No chief complaint on file. HPI Sarah Mcguire is a 78 y.o. 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 Cindy Coffey MD Resident 11/07/24 1654 [facility] Work Phone: 1(680) 549-521106-04-2025 Emergency department Note* Lopez Farnsworth RN - 11/07/2024 1:30 PM EDT Bed: E021 Expected date: Expected time: Means of arrival: Comments: 34 [facility]06-04-2025 Emergency department Note* Octavio Pinon [facility] - 11/07/2024 1:28 PM EDT Department of Pharmacy - Trauma Note Patient: Sarah Mcguire Room/Bed: E034/E034 Level 2 trauma s/p Fall with SDH found at OSH Medications received prior to arrival: Balfaxar 2500 units @1130 Prophylactic Antibiotics: n/a Tetanus: N/A Patient is on eliquis. Please feel free to contact me with any further questions. Name: Octavio Pinon KATERINE Phone #: [phone] Date/Time: 11/07/2024 1:[address] [facility]06-04-2025 Physician Emergency department Note* Ignacio De [...] EKG Interpretation Rhythm: normal sinus Rate: normal Olla: normal Ectopy: none Conduction: normal ST Segments: [...] 0.69 (L) 1.16 - 3.51 K/uL Abs Dickens Auto 0.62 0.22 - 0.87 K/uL Abs [...] La Garza Sr., MD, PhD 11/07/24 1628 [facility]06-04-2025 Emergency department Note* Minna Swenson RN - 11/07/2024 1:25 PM EDT Cardene 5 mg/hr started now. [facility]06-04-2025 Emergency department Note* KEY Fuentes - 11/07/2024 1:18 PM EDT SW responded to Level 2 Trauma brought in by [facility] after patient fell. Emergency Contacts: Alexsandra, child [phone] Per EMS patient's daughter is en route to [facility]. SW will be available for support as needed while patient is in the ED. Edy BLOOD, [facility] Medical Social Work [facility]06-04-2025 Emergency department Note* Minna Swenson RN - 11/07/2024 1:05 PM EDT Patient arrives to trauma bay now. Slurred speech, unsteady gait while at [facility] study. PMH intracranial bleed, craniotomy for tumor (2022). 200/60 on EMS arrival. Improved to 170 en route. NIH 1 at OSH but 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 Note* Minna Swenson RN - 11/07/2024 12:53 PM EDT Patient roomed for ordering purposes. [facility]06-04-2025 Emergency department Note* Nalini Barnett RN - 11/07/2024 11:40 AM EDT Neuro surg provider paged at this time to clarify BP parameters at this time. [facility]06-04-2025 Radiology Diagnostic study note [facility] Imaging Services [address] [place] [address] STROKE Brain/Head without Cont MR#: [id number] Acct: [id number] Name: SARAH MCGUIRE Rep #: [id number] : 1945 F 78 From: Abbe Gonzalez MD PCP: Dr. Monika Venegas MD Status: REG ER Study:STROKE Brain/Head without Cont Date of Exam: 11/07/24 Exam# [id number] Ordering Dr: Mario Anand MD PROCEDURE: STROKE [...] areas infarction, of uncertain age. Reading Location: [address] CC: Dr. Monika Venegas MD; Dr. Dallas Anand MD ~ Administrative Services Officer: Signed [facility]06-04-2025 Emergency department Note* Nalini Barnett RN - 11/07/2024 11:00 AM EDT Neuro surg provider paged at this time to clarify BP parameters [facility]04-24-2025 [facility] [address] [place] [address] Emergency Department Summary 09/27/24 MR#: [id number] Acct: [id number] Name: SARAH MCGUIRE Rep #:[id number] : 1945 78 From: Hayden Sadler DO [...] her surgery and from the ride from [facility] to [place] and December 2022 she notedthat she has had some numbness and tingling periodically in her left arm but today this felt different therefore her daughter brought her here for further evaluation management. She states that she was sitting eating breakfast when this occurred. Patient states that she is anxious about her symptoms. She states that she is on Eliquis. [facility] Medical History Mitral valve stenosis, non-rheumatic [...] follow commands knew that she was at [facility] 2024 Skin: Warm, dry, intact Const [...] processes. Did discuss his case with on-call asset management lead Dr. Calderon who states that she [...] 78.7 H Lymph % (Auto) 10.8 L Dickens % (Auto) 8.3 Eos % (Auto) 1.1 [...] No acute abnormality is seen. Reading Location: [facility] Discharge Plan Triage Chief Complaint: Chest Pain [...] symptoms or any other concerns. Print Language: Ethiopian Disposition Disposition: Home, Self Care What to do if you have Problems For any increased pain, shortness of breath, bleeding, nausea or vomiting, chestpain, or any unexpected problems, contact your Primary Care Provider. Call [facility] ([phone]) or report tothe closest Emergency Room. Call 911 if necessary. 09/27/24 1330 Cosigner Signature (if applicable): CC: Dr. Monika Venegas MD ~ Signed [facility]04-24-2025 Radiology Diagnostic study note [facility] Imaging Services [address] [place] [address] Chest PA and Lateral MR#: [id number] Acct: [id number] Name: SARAH MCGUIRE Rep #: [id number] : 1945 F 78 From: Heri Bradshaw MD PCP: Dr. Monika Venegas MD Status: REG ER Study:Chest PA and Lateral Date of Exam: 09/27/24 Exam# [id number] Ordering Dr: Bret Sadler DO PROCEDURE: CHEST [...] No acute abnormality is seen. Reading Location: [place] [address] CC: Dr. Monika Venegas MD; Dr. Hayden Sadler, DO ~ Administrative Services Officer: Signed [facility]02-05-2025 History of Present illness Narrative* Annelise [...] Karen Trejo CNP notified Annelise Rogers RN * Annelise [...] below. YOUR HEALTH TODAY= 65% * Karen Trejo APRN-DRY CLEANER - 07/11/2024 11:00 AM EST RADIATION ONCOLOGY FOLLOW UP NOTE Patient Name: Sarah Mcguire Provider: Dr. Nimo Bueno : 1945 Date: 07/11/2024 DIAGNOSIS: 78 [...] XII are intact grossly and symmetrically EXCEPT CREEK in the left ear. No focal neurologic [...] to Meningioma of scalp 60-75Gy in 30fx zjkxbyydu91/11/23. She presents today with her daughter for [...] plan of care was developed with Dr. Nimo Bueno, attending physician. In total, 30 minutes were spent in association with this visit by the LOIS. LOIS [place], [facility] Department of Radiation Oncology Pager #[phone] * Nimo Bueno MD - 07/11/2024 11:00 AM EST [...] arise. Documented by Minna Mckeon, for Dr. Nimo Bueno on 07/11/2024 11:31 AM. All medical record entries made by the Linda were at my direction and personally dictated by me, Nimo Bueno MD . I have reviewed and edited the chart and agree that the record accurately reflects my personal performance of the history, physical exam, assessment and plan. I have also personally directed, reviewed, and agree with the discharge instructions. documented in this [facility]02-05-2025 Instructions* Patient Instructions* Annelise Rogers RN - 07/11/2024 11:00 AM EST It was a pleasure to see you today! We will contact you if there are any concerning findings on the final read of your MRI completed today. Please call our office if you develop any new or worsening symptoms in the interim. [phone]. Please schedule a MRI brain prior to follow up with Dr. Bueno in 4 months. Referral placed for dermatology. documented in this [facility]10-09-2024 NoteEXAM: NUC PET NEUROENDOCRINE, 03/14/2024 10:34 [...] although residual/recurrent disease cannot be entirely excluded. [facility]10-09-2024 History of Present illness Narrative * Kristine Blue APRN-DRY CLEANER - 03/14/2024 3:00 PM EDT RADIATION ONCOLOGY FOLLOW UP NOTE Patient Name: Sarah Silver Maynor Provider: Dr. Nimo Bueno : 1945 Date: 03/14/2024 DIAGNOSIS: 78 [...] Bueno, attending physician. Kristine Blue APRN-AGNIESZKA, pager [phone] * Nimo Bueno MD - 03/14/2024 3:00 PM EDT [...] arise. Documented by Danny Mckeon, for Dr. Nimo Bueno on 03/14/2024 4:05 PM. All medical record entries made by the Linda were at my direction and personally dictated by me, Nimo Bueno MD . I have reviewed and edited the chart and agree that the record accurately reflects my personal performance of the history, physical exam, assessment and plan. I have also personally directed, reviewed, and agree with the discharge instructions. Nimo Bueno MD Director Of Trauma Department of Radiation Oncology Pager: [phone] Office: [phone] * Annelise Rogers RN - 03/14/2024 3:00 [...] YOUR HEALTH TODAY= 75% [facility] Instructions* Patient Instructions* Annelise Rogers RN - 03/14/2024 3:00 PM EDT Please return in 3 month MRI and follow up with Dr. Bueno [facility] History of Present illness Narrative* Annelise [...] YOUR HEALTH TODAY= 85% * Kristine Blue APRN-AGNIESZKA - 11/29/2023 2:30 PM EDT RADIATION ONCOLOGY FOLLOW UP NOTE Patient Name: Sarah Silver Maynor Provider: Dr. Nimo Bueno : 1945 Date: 11/29/2023 DIAGNOSIS: 78 [...] Dr. Bueno, attending physician. Kristine ABREU, pager [phone] * Nimo Bueno MD - 11/29/2023 2:30 PM EDT [...] with Tylenol), balance difficulty (plan to restart AL/OT this week), dizziness with position change, left [...] arise. Documented by Danny Mckeon, for Dr. Nimo Bueno on 11/29/2023 4:53 PM. All medical record entries made by the Linda were at my direction and personally dictated by me, Nimo Bueno MD . I have reviewed and edited the chart and agree that the record accurately reflects my personal performance of the history, physical exam, assessment and plan. I have also personally directed, reviewed, and agree with the discharge instructions. Nimo Bueno MD Director Of Trauma Department of Radiation Oncology Pager: [phone] Office: [phone] [facility] Instructions* Patient Instructions* Kristine Blue APRN-DRY CLEANER - 11/29/2023 2:30 PM EDT It was a pleasure to see you today! Please call our office if you develop any new or worsening symptoms in the interim. [phone]. Please schedule a MRI Brain and Neuroendocrine PET scan prior to follow up with Dr. Bueno in 3 months. [facility] History of Present illness Narrative* Cherrie [...] Blue CNP notified Cherrie Mendoza RN * LOIS Middleton - 05/19/2023 2:30 PM EST RADIATION ONCOLOGY FOLLOW UP NOTE Patient Name: Sarah Nadeem Mcguire Provider: Dr. Nimo Bueno : 1945 Date: 05/19/2023 DIAGNOSIS: 77 [...] developed with Dr. Bueno, attending physician. Kristine MEDLEYDRY CLEANER, pager [phone] Radiation Oncology Attending Addendum: I saw and independently examined this patient today on 05/19/2023. I discussed my findings and the therapeutic plan with Radiation Oncology NEWS ASSIGNMENT EDITOR, Kristine. I agree with her history, physical [...] to contact me should any questions arise. Nimo Bueno MD Director Of Trauma Department of Radiation Oncology Pager: [phone] Office: [phone] * Cherrie Mendoza RN - 05/19/2023 2:30 [...] did not fill out [facility] Instructions* Patient Instructions* LOIS Middleton - 05/19/2023 2:30 PM EST It was a pleasure to see you today! Please call our office if you develop any new or worsening symptoms in the interim. [phone]. Please schedule a MRI prior to follow up with Dr. Bueno in 3 months. [facility]10[facility] History of Present illness Narrative* Annelise [...] no active drainage. MD Annelise Deleon RN * Nimo Bueno MD - 03/15/2023 10:00 AM EDT [...] grossly unchanged from prior examination, no focal LOAN MANAGER findings. Labs: Lab Results Component Value Date [...] dose. - Continue radiation therapy as planned. Nimo Bueno MD Line Construction Engineer Department of Radiation Oncology documented in this [facility]10-10-2023 Instructions* Patient Instructions* Annelise Rogers RN - 03/15/2023 10:00 AM EDT Please return in 2 months with repeat brain MRI and follow up with Dr. Bueno on same day! (Patientcannot do Mondays) [facility]10-[facility]23 History of Present illness Narrative* Annelise [...] planned. Ameya Singh MD [facility]09-[facility]-2023 History of Present illness Narrative* Annelise [...] compression stockings Julian Siddiqui MD notified Annelise Rogers, RN * Julian Siddiqui MD - 03/01/2023 [...] planned. Julian Siddiqui MD Radiation Oncology Resident Pager:[phone] On Treatment Visit Addendum: I saw and [...] patient will continue radiation therapy as planned. Nimo Bueno MD Director Of Trauma Department of Radiation Oncology [facility] documented in this [facility]09-12-2023 History of Present illness Narrative* Annelise [...] planned. Julian Siddiqui MD Radiation Oncology Resident Pager:[phone] On Treatment Visit Addendum: I saw and [...] patient will continue radiation therapy as planned. Nimo Bueno MD Director Of Trauma Department of Radiation Oncology [facility] documented in this [facility]09-05-2023 History of Present illness Narrative* Annelise [...] cream provided -BLE edema, wearing compression stockings Nimo Bueno MD notified. Annelise Rogers RN * Nimo Bueno MD - 02/08/2023 10:40 AM EDT [...] grossly unchanged from prior examination, no focal LOAN MANAGER findings. Labs: Lab Results Component Value Date [...] dose. - Continue radiation therapy as planned. Nimo Bueno MD Line Construction Engineer Department of Radiation Oncology [facility] History of Present illness Narrative* Annelise Rogers RN - 01/19/2023 3:30 PM EDT Sarah Mcguire was seen 01/19/2023 in Radiation [...] prior to daily treatments. No further assistance nenadeem pereira at this time. Annelise Rogers RN [facility]2023 Instructions* Patient Instructions* Annelise Rogers RN [...] Bueno will see you each TUESDAY at [facility] after your treatment for your On Treatment [...] for a ticket each day. This includes machinery mechanic parking. You will be given information on reserved parking in the [place] garages. You will be given a special wrist band today that you can use to check in for your treatments. You do not need to go to registration before each radiation treatment. If you have appointments with anyother department at [facility], you must go to registration prior to those appointments. Please call the radiation clinic at [phone] with any questions or concerns. You can also contact your physician via My Chart with any non-urgent issues. My Chart messages are only reviewed during regular business hours. documented in this [facility]08-16-2023 History of Present illness Narrative* Annelise [...] 77 y.o. 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 Documented by Danny Mckeon, for Dr. Nimo Bueno on 01/19/2023 12:48 PM. All medical record entries made by the Danny Mckeon, were at my direction and personally dictated by me, Nimo Bueno. I have reviewed the chart and agree that the record accurately reflects my personal performance of the history, physical exam, assessment and plan. I have also personallydirected, reviewed, and agree with the discharge instructions. Nimo Bueno MD Director Of Trauma Department of Radiation Oncology Pager: [phone] Office: [phone] [facility]07-17-2023 Progress note Author Jo-Ann Arias [facility] December 20, 2022 3:46pm Note Date/Time December 20, 2022 12:1 3pm [facility] Medical Records Department [address] [place] [address] Progress Note 12/20/22 1208 MR#: [id number] Acct: [id number] Name: SARAH MCGUIRE Rep #:[id number] : 1945 77 From: Jo-Ann Arias DO PCP: Dr. Monika Venegas MD Status:ADM IN Location: [place] [address] Subjective Subjective Afebrile VSS Maintaining appropriate oxygen [...] cough suppressant. Charges/Coding Visit Charges Inpatient E&M: 06269 Subs Hosp L2 12/20/22 1528 <Electronically signed [...] Signature (if applicable): Date cc: ~* Signed [facility] Work Phone: 1(812) 790-872007-15-2023 Progress note Author Jo-Ann Arias [facility] December 18, 2022 11:48am Note Date/Time December 17, 2022 6:46 pm [facility] Medical Records Department [address] [place] [address] Progress Note 12/17/22 1844 MR#: [id number] Acct: [id number] Name: SARAH MCGUIRE Rep #:[id number] : 1945 77 From: Jo-Ann Arias DO PCP: Dr. Monika Venegas MD Status:ADM IN Location: [place] [address] Subjective Subjective Afebrile VSS Maintaining appropriate oxygen [...] on Tuesday. Charges/Coding Visit Charges Inpatient E&M: 70326 Subs Hosp L1 12/18/22 1148 <Electronically signed by Jo-Ann Arias DO> Jo-Ann Arias DO Cosigner Signature (if applicable): CC: ~ Signed [facility] Work Phone: 1(366) 775-678507-15-2023 Progress note Author [facility] December 18, 2022 11:42am Note Date/Time December 16, 2022 12:2 6pm [facility] Medical Records Department [address] [place] [address] Progress Note 12/16/22 1222 MR#: [id number] Acct: [id number] Name: SARAH MCGUIRE Rep #:[id number] : 1945 77 From: Jo-Ann Arias DO PCP: Dr. Monika Venegas MD Status:ADM IN Location: [place] [address] Subjective Subjective Sarah was seen on team [...] with meals. Charges/Coding Visit Charges Inpatient E&M: 37524 Subs Hosp L2 12/18/22 1142 <Electronically signed by Jo-Ann Arias DO> Jo-Ann Arias DO Cosigner Signature (if applicable): CC: ~ Signed [facility] Work Phone: 1(886) 561-519807-15-2023 Progress note Author [facility] December 18, 2022 11:30am Note Date/Time December 13, 2022 10:5 9am [facility] Medical Records Department [address] [place] [address] Progress Note 12/13/22 1053 MR#: [id number] Acct: [id number] Name: SARAH MCGUIRE Rep #:[id number] : 1945 77 From: Jo-Ann Arias DO PCP: Dr. Monika Venegas MD Status:ADM IN Location: [place] [address] Subjective Subjective Afebrile VSS-systolic is mildly elevated [...] precautions discontinue. Charges/Coding Visit Charges Inpatient E&M: 65711 Subs Hosp L2 12/18/22 1130 <Electronically signed by Jo-Ann Arias DO> Jo-Ann Arias DO Cosigner Signature (if applicable): CC: ~ Signed [facility] Work Phone: 1(779) 968-946907-07-2023 Progress note Author [facility] December 10, 2022 8:52am Note Date/Time December 10, 2022 8:53a m [facility] Medical Records Department [address] [place] [address] Progress Note 12/10/22 0833 MR#: [id number] Acct: [id number] Name: SARAH MCGUIRE Rep #:[id number] : 1945 77 From: Jo-Ann Arias DO PCP: Dr. Moinka Venegas MD Status:ADM IN Location: [place] [address]1 Subjective Subjective Sarah was seen yesterday on [...] on Tuesday Charges/Coding Visit Charges Inpatient E&M: 68186 Subs Hosp L2 12/10/22 0852 <Electronically signed by Jo-Ann Arias DO> Jo-Ann Arias DO Cosigner Signature (if applicable): CC: ~ Signed [facility] Work Phone: 1(697) 736-927107-07-2023 History and physical note Author [facility] December 10, 2022 8:33am Note Date/Time December 08, 2022 4:34p m [facility] Medical Records Department [address] [place] [address] Post Admission Physician Radhika 12/08/22 1632 MR#: [id number] Acct: [id number] Name: SARAH MCGUIRE Rep #:[id number] : 1945 77 From: Jo-Ann Arias DO PCP: Dr. Monika Venegas MD Status:ADM IN Location: [place] [address] Admission Information Primary Diagnosis:: Physical debility secondary [...] and Depression Risk of Complications DVT: TORSTEN Bowen and - (Heparin 5000 units subcu every [...] Skin integrity and Medication Management Patient needs Birth Certificate Clerk/ Case Management for: Discharge Planning, Arranging Home [...] Cosigner Signature (if applicable): CC: ~ Signed [facility] Work Phone: 1(695) 979-105007-05-2023 History and physical note Author Jo-Ann Arias [facility] December 08, 2022 4:32pm Note Date/Time December 07, 2022 10:06 am [facility] Medical Records Department [address] [place] [address] History & Physical Exam 12/07/22 0946 MR#: [id number] Acct: [id number] Name: SARAH MCGUIRE Rep #:[id number] : 1945 77 From: Jo-Ann Ivan Arias DO PCP: Dr. Monika Venegas MD Status:ADM IN Location: EE342-0 HPI - General General Date of Admission: [...] and recommendation for acute inpt rehab at [place] was made. 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 There were several small foci of acute [...] Needs a 30 day event monitor at [place]. Afebrile VSS -blood pressures have ranged from 124/55 to 157/61 since admission to rehab. Heart rate has ranged from 79-102. Maintaining appropriate oxygen saturation on RA -97 to 99%. Oral intake is good. She ate 75 to 100% of her breakfast today. Oral intake [id number] since admission and this is in less [...] of 63. Triglycerides were within normal limits. [facility] Medical History (Updated 12/08/22 @ 16:23 by [...] a supplement. Charges/Coding Visit Charges Inpatient E&M: 66337 Init Hosp L3 12/08/22 1632 <Electronically signed by Jo-Ann Arias DO> Cosigner Signature (if applicable): CC: Dr. Monika Venegas MD; Dr. 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 1. HYPERTENSION- diangosed 6+yrs ago and has been controlled on current meds. BP Readings from Last 3 Encounters: 10/08/22 128/80 09/30/22 196/72 2. HYPERLIPIDEMIA - stable on statins for 6+ yrs. PLAN: No further cardiac testing needed. CARDIAC TESTING: EKG (10/08/2022): sinus bradycardia, HR:57, normal AL interval, no acute abnormality. PULMONARY Social History [...] 1 capsule by mouth daily every morning. Vbneppmzn-Wqxaioodkcv-Xbl D (OSTEO BI-FLEX ONE PER DAY PO) [...] URINALYSIS REFLEX TO CULTURE PERFORMABLE EXTRA MICRO AL ECG, CLINIC PERFORMED Lab A/P - Labs [...] MD [facility] Perioperative Clinic [facility] [address] [facility] Review of Systems (OSUROS) Review of [...] disturbance. The patient is nervous/anxious. 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 1. HYPERTENSION- diangosed 6+yrs ago and has been controlled on current meds. BP Readings from Last 3 Encounters: 10/08/22 128/80 09/30/22 196/72 2. HYPERLIPIDEMIA - stable on statins for 6+ yrs. PLAN: No further cardiac testing needed. CARDIAC TESTING: EKG (10/08/2022): sinus bradycardia, HR:57, normal AL interval, no acute abnormality. PULMONARY Social History [...] 1 capsule by mouth daily every morning. Rfohlpcyn-Wwgvrkivkjz-Vva D (OSTEO BI-FLEX ONE PER DAY PO) [...] URINALYSIS REFLEX TO CULTURE PERFORMABLE EXTRA MICRO AL ECG, CLINIC PERFORMED Lab A/P - Labs [...] MD 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* Patient Instructions* Pati English - [...] take Herbal Medication (including multi-vitamin, fish oil ([place]-3), garlic, Glucosamine -Chondroitin ,gingko, ginseng, Vitamin [...] site one week prior to surgery. - Ophelia your teeth and rinse your mouth the [...] Information Management Department for all records requests. [phone] [phone] AVS/RF [facility] History of Present illness Narrative* Emily [...] Nursing Assessment: Physical Exam * Shaye Weston, PRINCIPAL SCIENTIST-DRY CLEANER - 09/30/2022 12:00 PM EDT Images from the original note were not included. [facility] Neurosurgery Oncology Clinic Dr. Ernie Kincaid MD Professor, Department of Neurosurgery Director of Neurosurgical Oncology [facility] and [place] [address] NEW PATIENT VISIT NOTES Leon Mcguire is a 76 y.o. female with PMH of HTN, HDL, no cancer history who was recently diagnosed with a Left frontotemporal skull lesion that presents to [facility] Oncology [facility] for consultation. [...] tablet Take 1 tablet by mouth daily. Webzpcpgd-Qmudmdvkawr-Ewm D (OSTEO BI-FLEX ONE PER DAY PO) [...] cancer history who presents today to [facility] Neuro[facility] for a consultation [...] of the clinic visit. The nurse practitioner/physician leasing assistant and I have spoken with the patient and provided written and verbal instructions for the patient. The above note has been reviewed and I agree with the assessment and plan. Ernie Kincaid MD [facility] Inst[facility]* Patient Instructions* Hansa Nice RN - 09/30/2022 12:00 PM EDT We are here to assist you through your care at [facility] and Noman Villegas [facility]! Your Care Team from today's visit included: Neurosurgeon- Dr. Santosh Kincaid Nurse Practitioner- Shaye Weston APRN-DRY CLEANER Primary Nurse - ROSETTA Hall, RN The Neurosurgery clinic and scheduling staff can be reached at [phone]. Please call if you develop new or worsening symptoms, also with any additional questions regarding your visit today or if you need to contact the doctor. You will speak with a energy scheduler, who will take a message and [...] weekends, and/or during a holiday please call [phone] and speak with the after-hours service. You will be connectedto the neurosurgery resident sap solutions architect. New or worsening neurological symptoms can include, but are not limited to: weakness, confusion, difficulty walking, vision/hearing/speech changes, seizures or extremity tremors, and persistent headaches. If it is an emergency you will need to go to your local ER. Ask them to fax your records to us so that we can update our team, fax number [phone]. If you experience seizures affecting the whole [...] our office. Documentation can be faxed to [phone]. Your feedback is important to our team. [...] condition. You will receive this questionnaire via Crzyfish. Please complete so your providers at [facility] can better help you! documented in [facility] Author Hayden Sadler [facility] Note Date/Time September 27, 2024 1:3 0pm [facility] Medical Records Department [address] [place] [address] Emergency Department Summary 09/27/24 MR#: [id number] Acct: [id number] Name: SARAH MCGUIRE Rep #:[id number] : 1945 78 From: Hayden Sadler DO [...] her surgery and from the ride from [facility] to [place] and December 2022 she notedthat she has had some numbness and tingling periodically in her left arm but today this felt different therefore her daughter brought her here for further evaluation management. She states that she was sitting eating breakfast when this occurred. Patient states that she is anxious about her symptoms. She states that she is on Eliquis. [facility] Medical History Mitral valve stenosis, non-rheumatic [...] follow commands knew that she was at [facility] 2024 Skin: Warm, dry, intact Const [...] processes. Did discuss his case with on-call asset management lead Dr. Calderon who states that she [...] 78.7 H Lymph % (Auto) 10.8 L Dickens % (Auto) 8.3 Eos % (Auto) 1.1 [...] No acute abnormality is seen. Reading Location: [place] [address] Discharge Plan Triage Chief Complaint: Chest Pain [...] symptoms or any other concerns. Print Language: Ethiopian Disposition Disposition: Home, Self Care What to do if you have Problems For any increased pain, shortness of breath, bleeding, nausea or vomiting, chestpain, or any unexpected problems, contact your Primary Care Provider. Call [facility] ([phone]) or report to the closest Emergency Room. Call 911 if necessary. 09/27/24 1330 <Electronically signed by Hayden Sadler DO> Cosigner Signature (if applicable): CC: Dr. Monika Venegas MD ~ Signed [facility] Work Phone: Evaluation noteNo assessment information available [facility] Work Phone: Evaluation note* Diagnosis Onset Date Resolution Status Scalp lesion chronic Scalp lesion chronic [facility] Work Phone: Evaluation note* Diagnosis Skull mass- Primary Disorder of bone and cartilage, unspecified [facility] Diagnosis Preop exam for internal medicine Other specified pre-operative examination Skull mass Disorder of bone and cartilage, unspecified Essential hypertension Unspecified essential hypertension Hyperlipidemia, unspecified hyperlipidemia type Skull lesion Disorder of bone and cartilage, unspecified [facility] Diagnosis Preop exam for internal [...] cartilage, unspecified [facility] Diagnosis Skull mass Disorder of bone and cartilage, unspecified Skull lesion Disorder of bone and cartilage, unspecified [facility] Diagnosis Onset Date Resolution Status Scalp lesion chronic Scalp lesion chronic Acute blood loss anemia acut e C. difficile enteritis acute Cerebrovascular disease acut e Excessive cerumen in both ear canals acute H/O craniotomy acute Hyponatremia acute Ischemic cerebrovascular accident (CVA) acute Mitral stenosis acute Physical debility acute Pulmonary hypertension acute Thrush acute Scalp lesion chronic [facility] Work Phone: Evaluation note* Diagnosis Neuroendocrine cancer Other malignant neoplasm without specification of site Cancer of cerebral meninges Malignant neoplasm of cerebral meninges [facility] Diagnosis Neuroendocrine cancer- Primary Other malignant neoplasm without specification of site [facility] Diagnosis Onset Date Resolution Status [...] stenosis, non-rheumatic acute Paroxysmal atrial fibrillation acute [facility] Work Phone: Evaluation note* Diagnosis Cancer of cerebral meninges- Primary Malignant neoplasm of cerebral meninges Neuroendocrine cancer Other malignant neoplasm without specification of site [facility] Neuroendocrine cancer- Primary Other malignant neoplasm without specification of site [facility] Diagnosis Cancer of cerebral meninges- Primary Malignant neoplasm of cerebral meninges [facility] Diagnosis Cancer of cerebral meninges- Primary Malignant neoplasm of cerebral meninges [facility] Diagnosis Cancer of cerebral meninges- Primary Malignant neoplasm of cerebral meninges [facility] Diagnosis Cancer of cerebral meninges- Primary Malignant neoplasm of cerebral meninges [facility] Diagnosis Onset Date Resolution Status Carotid artery bruit acute Ischemic cerebrovascular accident (CVA) acute jail current use of amiodarone acute Mitral valve stenosis, non-rheumatic acute Paroxysmal atrial fibrillation acute [facility] Work Phone: Evaluation note* Diagnosis Cancer of cerebral meninges Malignant neoplasm of cerebral meninges [facility] Diagnosis Cancer of cerebral meninges- Primary Malignant neoplasm of cerebral meninges Neuroendocrine cancer Other malignant neoplasm without specification of site [facility] Cancer of cerebral meninges Malignant neoplasm of cerebral meninges Neuroendocrine cancer Other malignant neoplasm without specification of site [facility] Cancer of cerebral meninges Malignant neoplasm of cerebral meninges Neuroendocrine cancer Other malignant neoplasm without specification of site [facility] Diagnosis Cancer of cerebral meninges- Primary Malignant neoplasm of cerebral meninges [facility] Diagnosis Cancer of cerebral meninges Malignant neoplasm of cerebral meninges [facility] Diagnosis Cancer of cerebral meninges- Primary Malignant neoplasm of cerebral meninges Skin change Other symptoms involving skin and integumentary tissues Alopecia Alopecia, unspecified S/P radiation therapy Convalescence following radiotherapy [facility] Diagnosis Epidural hematoma- Primary Nontraumatic extradural hemorrhage Seizure Other convulsions Paroxysmal atrial fibrillation Atrial fibrillation Murmur Undiagnosed cardiac murmurs [facility] Diagnosis Epidural hematoma- Primary Nontraumatic extradural hemorrhage Seizure Other convulsions Paroxysmal atrial fibrillation Atrial fibrillation Murmur Undiagnosed cardiac murmurs [facility] Additional Instructions Follow-up with your primary care physician at your scheduled appointment tomorrow. Return with worsening symptoms or any other concerns.[facility] Work Phone: Progress note Author Odilon Melchor [facility] Note Date/Time February 26, 2025 10:54am [facility] [address] [place] [address], [address] [place] [address] OFFICE VISIT Date of Service: 02/26/25 MR#: [id number] Acct: [id number] Name: SARAH MCGUIRE Rep #: [id number] : 1945 Provider: Dr. Jovanni Melchor MD Age/Sex: 79/F Location: [facility] Status: Signed HPI HPI Chief Complaint: Establish Care Details: Interim History: Sarah returns for follow-up visit. She has a history of hypertension, paroxysmal atrial fibrillation, hyperlipidemia and cerebral meningioma. She is accompanied by her daughter. Initial history was obtained from the patient's daughter. The patient had an enlarging left calvarial mass and on evaluation was found to have a meningioma. She underwent resection of the meningioma in 2022. The patient's daughter reported that the meningioma was not malignant however did have some pathological characteristics that raise concern for potential recurrence and she then received radiation therapy later in 2022. Shefollows up with a another medical provider and has assessments with head MRIs every 3 months and a PET scan yearly. In the postoperative period in 2022, she apparently had a stroke. She had dysarthria at that time (details of other neurological deficits, if any, are presently not available). One week following her surgery in December 2022, she underwent another cranial surgery for evacuation of a hemorrhage (I suspect thismay have been a subdural hematoma). She was treated prophylactically with an antiepileptic medication for approximately 2 weeks following her surgery howevershe did not have a seizure at that time. Due to deconditioning during her hospitalization and resultant impaired mobility, she spent some time in an inpatient rehabilitation facility. She was able to ambulate with a cane or a rollator. She subsequently returned home. In November 2024, she apparently exhibited generalized weakness and dysarthria and was hospitalized. A left chronic subdural hematoma with possibly an acute component was noted on head CT in November 2024; this was increased slightly in size when compared to her head CT from December 2022. She was transferred to [facility] hospital ([facility] [place] Initially the possibility of a stroke was raised however on further assessment, she was felt not to have had a stroke. Also on further assessment, the chronic subdural hematoma was felt to be not significantly changed from prior study and no surgical intervention was felt to be warranted. Apparently, the possibility of a seizure was raised and the patient was started on levetiracetam however thepatient's daughter reports that [facility] did not reveal epileptiform activity (an official report is presently not available) and on assessment by another medical provider the diagnosis of a seizure was questioned. The patient's daughter reported that the patient was noted to have bradycardia during the period she presented with generalized weakness and dysarthria and reduced cerebral perfusion was felt to possibly be the cause of her presenting symptoms at that time; carvedilol was discontinued and the patient had improvement of her symptoms. She has not had symptoms suggestive ofseizures since her initial visit at this office in December 2024. She had a urinary tract infection in December 2024 for which she has been treated. She has exhibited a tremor in both hands since initiation of levetiracetam. Earlier in 2024 a levetiracetam level was noted to be high and her dose of levetiracetam was reduced to 500 mg twice daily and she has had somereduction of her tremor. She has had a right foot tremor since childhood. The patient reported having left leg weakness. She resides at home and receives outpatient physical therapy. She has had hyponatremia for which she has been treated (fluid restriction, salt tablets; she was also treated with tolvaptan during her hospitalization in December 2024). She has seen a crew member. Mini-Mental status exam was 28/30 in December 2024. She has elevated liver transaminases which the patient's daughter reports arefelt to be due to a medication side effect. Physical Exam: Neuro: The patient is awake; she is mildly bradyphrenic; speech is slightly hypophonic; she exhibits a mild paucity of speech; no rigidity is noted in the wrists; a marginal bilateral hand tremors noted when arms are extended; no tremor is noted at rest; motor strength is 5/5 in the quadriceps bilaterally Heart: Regular rate and rhythm; a cardiac murmur is auscultated Neck: Bilateral carotid bruits versus transmitted heart sounds are auscultated Supplemental Info Head CT (09/23/2022): FINDINGS: There is a 5.2 cm x 3.4 cm x 2.9 cm enhancing mass in the scalp overlying the left frontoparietal bone with the underlying bone destruction. There is evidence of a invasion of the mass lesion into the extra-axial space overlying the left frontoparietal lobes. A neoplastic process should be ruled out. Normal size ventricles and extra-axial spaces for the patient''s age. Normal white matter tracts of the cerebral hemispheres. Normal basal ganglia and thalami. Normal brainstem. Normal cerebellum. There is no intracranial hemorrhage. There are no findings of an acute ischemic infarction. Normal visualized paranasal sinuses. IMPRESSION: Large heterogeneously enhancing mass in the scalp causing destruction of the left frontal parietal bones with extension into the extra-axial space overlying the left frontal parietal lobes. A neoplastic process should be ruled out. Head CT (10/29/2022): COMPARISON: Head CT dated September 23, 2022 FINDINGS: Redemonstration of a soft tissue mass of the scalp and lateral and superior aspect of the left side of frontal bone which is eroded the outer cortex and extends through the medullary portion of the bone into the subdural space in the superior aspect of the left frontal lobe. The portion of the mass in the lateral convexity and superior aspect of the left frontal lobe results in mild mass effect on the underlying parenchyma as seen on image 27/44 series 2. 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 The malignant mass extends to the junction of the left parietal bone near the apex of the skull. No parenchymal edema or definite infiltration is seen by CT but this should be further evaluated by MRI. No definite areas of parenchymal edema or obvious masses are seen in the remaining aspects of the brain. Normal size ventricles and extra-axial spaces for the patient''s age. Normal white matter tracts of the cerebral hemispheres. Normal basal ganglia and thalami. Normal brainstem. Normal cerebellum. There is no intracranial hemorrhage. There are no findings of an acute ischemic infarction. Normal visualized paranasal sinuses. IMPRESSION: 1. Redemonstration of a soft tissue mass of the scalp and lateral and superior aspect of the left side of frontal bone which is eroded the outer cortex and extends through the medullary portion of the bone into the subdural space in the superior aspect of the left frontal lobe. The portion of the mass in the lateral convexity and superior aspect of the left frontal lobe results in mild mass effect on the underlying parenchyma as seen on image 27/44 series 2. 2. 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 The malignant mass extends to the junction of the left parietal bone near the apex of the skull. No parenchymal edema or definite infiltration is seen by CT but this should be further evaluated by MRI. No definite areas of parenchymal edema or obvious masses are seen in the remaining aspects of the brain. Addendum: Amendment to include precise measurement of the left superior frontal bone malignant mass. 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 EKG (12/23/2022): Atrial fibrillation with rapid ventricular response. Possible inferior infarct, age undetermined. Abnormal EKG. Head CT (12/24/2022): FINDINGS: Previously seen malignant scalp/bone mass overlying the left superior aspect of the frontal bone has been surgically resected. Interval appearance of dural closure material in the overlying prosthesis with cortical plate screw constructs. No visualized focal mass or infiltrative process of the brain parenchyma on the current study. Small postoperative subdural hygroma of the right frontal convexity without demonstrated midline shift. There is mild cerebral atrophy with widening of the extra-axial spaces and ventricular dilatation. There are areas of decreased attenuation within the white matter tracts of the supratentorial brain, consistent with microvascular disease changes. Normal basal ganglia and thalami. Normal brainstem. Normal cerebellum. There is no intracranial hemorrhage. There are no findings of an acute ischemic infarction. Normal visualized paranasal sinuses. IMPRESSION: 1. 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 Interval appearance of dural closure material in the overlying prosthesis with cortical plate screw constructs. No visualized focal mass or infiltrative process of the brain parenchyma on the current study. Small postoperative subdural hygroma of the right frontal convexity without demonstrated midline shift. Carotid ultrasound (07/28/2023): Interpretation Summary Normal right extracranial internal carotid. Mild (<50%) stenosis left extracranial internal carotid. Patent and antegrade vertebrals bilaterally. BMP (07/24/2024): Sodium 129 (low), BUN 21 (high), BUN/creatinine ratio 26.3 (high), glucose 120 (high) Head CT (11/07/2024): FINDINGS: A left craniotomy site is seen. [...] Bones: No acute osseous change is seen. IMPRESSION: 1. Moderate-sized mixed density left subdural fluid collection, concerning for recurrent bleed. No midline shift is noted. 2. Hypodensities in nearby areas left frontal white matter, concerning for possible areas infarction, of uncertain age. Head CT (11/07/2024): Findings: Status post left craniotomy/cranioplasty. Again present is a predominantly hypoattenuating extra-axial [...] encephalomalacic findings peripherally in the left cerebral hemisphere with mild interval progression of generalized cerebral [...] along the intracranial carotid and vertebral arteries. Impression: Status post left-sided craniotomy/cranioplasty. Again present is a predominantly hypoattenuating extra-axial fluid collection deep to the cranioplasty, mildly increased in size since December 2022. There is some indistinct marginated nodular isoattenuating to mildly hyperattenuating findingsalong the deep margin of this extra-axial collection that are new from December 2022. This is nonspecific and could represent scarring, blood, or recurrent neoplasm. An MRI brain with and without contrast would offer better characterization of this finding. No evidence of acute intraparenchymal hemorrhage, mass effect or acute large territory infarct. Head MRA (11/10/2024): Findings: Internal carotid arteries: There is either severe stenosis of the left supraclinoid ICA or occlusion with immediate reconstitution since flow related signal is noted in the left carotid terminus. There is occlusion of the right carotid terminus with no flow related signal noted in the right A1 or right M1. Anterior cerebral arteries: No flow related signal noted in the right A1. The left A1 is patent. Bilateral A2's are widely patent. Middle cerebral arteries: No flow related signal in the right M1 and proximal right M2. The sylvian branches of the right middle cerebral artery show flow related signal but are small in caliber. Posterior cerebral arteries: Suspected severe stenosis of the P2 segments bilaterally. The right posterior cerebral artery originates predominantly from the anterior circulation whereas the left posterior cerebral artery originates predominantly from the posterior circulation. Vertebral arteries: Patent Basilar artery: There is fenestration of the proximal basilar artery. The remainder of the basilar artery is widely patent. Other: No aneurysm or AVM. Impression: Occlusion of the right carotid terminus with no flow related signal in the rightA1, right M1 and proximal right M2. Mild flow related signal through the distalsegments of the right middle cerebral artery likely through collaterals. Occlusion with immediate reconstitution or severe stenosis at the left supraclinoid ICA and proximal left M1 segment. 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 Neck MRA (11/10/2024): Findings: Aortic arch: Conventional anatomic origin of the great vessels. No significant stenosis. Right carotid artery: Common carotid artery is patent and normal in caliber. Internal carotid artery origin at the bifurcation is patent and normal in caliber. More distal cervical segments of the internal carotid artery are patent and normal in caliber. Left carotid artery: Common carotid artery is patent and normal caliber. Internal carotid artery origin at the bifurcation is patent and normal in caliber. More distal cervical segments of the internal carotid artery are patent and normal in caliber. Right vertebral artery: Origin is patent. More distal cervical segments are patent and normal caliber. Left vertebral artery: Origin is patent. More distal cervical segments are patent and normal caliber. Other: No dissection or pseudoaneurysm. Impression: No large vessel occlusion or significant stenosis involving the carotid or vertebral system in the neck. Head MRI (11/10/2024): Findings: Postoperative changes are noted related to prior left sided craniotomy and cranioplasty for resection of previously identified large calvarial mass with both intracranial and extracranial extensions. There are areas of encephalomalacia involving the left frontal and parietal lobes. A fluid collection with blood products is again noted at the cranioplasty site. Stable appearance of a left parasagittal dural thickening near the vertex. No new/progressive contrast-enhancing nodule to suggest recurrence. No significantdefects within the dural venous sinuses to suggest thrombosis. No restricted diffusion within the brain parenchyma to suggest acute infarct. T2 hyperintense lesion involving the right cerebellar hemisphere consistent withsequela of a remote infarct. Susceptibility weighted images show no evidence ofintracranial hemorrhage. There are however remote blood products at the postoperative site. No sellar or parasellar mass is identified. Mild prominence of the ventricles suggesting central parenchymal volume loss. No air-fluid level within the paranasal sinuses. No orbital mass is identified. The mastoids are clear. No contrast-enhancing mass is identified involving theskull or visualized upper cervical spine. Impression: Postoperative changes related to prior left-sided craniotomy and cranioplasty for resection of a previously [...] suggest recurrence. Stable remote right cerebellar infarct. Cardiac echo (11/12/2024): Normal left ventricular size with mild asymmetric mid septal hypertrophy (max thickness 1.3 cm). Normal systolic function. LVEF 55-60%. Grade 2 diastolic dysfunction. Normal right ventricular size with normal systolic function. Mildly calcified aortic valve leaflets with mild aortic stenosis as well as mildto moderate central aortic regurgitation. Normal RSVP estimated at 25 mmHg. CMP, TSH (11/13/2024): AST 57 (high), ALT 82 (high), sodium 127 (low), BUN 20 (high), BUN/creatinine ratio 22.2 (high) BMP (11/15/2024): Sodium 124 (low) Cortisol (11/16/2024): Normal Urine culture (12/03/2024): Positive for Pseudomonas aeruginosa and Enterococcus faecalis. EKG (12/11/2024): Normal sinus rhythm. Nonspecific T wave abnormality. Abnormal EKG. CBC, BMP (12/17/2024): Hemoglobin 9.9 (low), hematocrit 28.1 (low), absolute lymphocytes 0.64 (low), sodium 131 (low), BUN 21 (high), creatinine 0.59 (low), BUN/creatinine ratio 36.1 (high) Ammonia, thiamine, B12, vitamin D, folate, TSH, serum free light chains (12/20/2024): B12 2740 (high) Levetiracetam level (12/20/2024): 43.5 (high) CMP (12/24/2024): AST 58 (high), ALT 108 (high), BUNs/creatinine ratio 30.7 (high), creatinine 0.64 (low), BUN 20 (high), sodium 131 (low) Levetiracetam level (12/31/2024): 22.7 (in therapeutic range) CBC, BMP (01/14/2025): Hemoglobin 10.9 (low), hematocrit 30.6 (low), absolute lymphocytes 0.6 (low), sodium 131 (low), BUN 21 (high), creatinine 0.56 (low), BUNs/creatinine ratio 37.3 (high) EEG (01/17/2025): EEG description: During maximal arousal the background consisted of a continuous and asymmetric admixture of frequencies in all bands. Typical amplitudes were >20 ?V. There was a well-modulated posterior dominant rhythm (PDR) of 10 Hz that blocked with eye opening. The anterior-posterior gradient was well-organized. There was continuous left hemispheric polymorphic delta/theta slowing. With drowsiness there was waxing/waning of the PDR, mild slowing of the background, and bursts of diffuse slowing. Deeper stages of sleep were not recorded. Photic stimulation evoked a driving response. Hyperventilation for 3 minutes with good effort resulted in physiologic slowing. No epileptiform discharges were seen. The EKG channel revealed no abnormalities. Impression: Continuous left hemispheric slowing. No EKG abnormality. Clinical correlation: This routine outpatient EEG was abnormal in wakefulness and drowsiness. The findings were consistent with a left hemispheric structural/physiologic abnormality. EKG (01/31/2025): Sinus bradycardia (ventricular rate 55 bpm). Otherwise normal EKG. When compared with EKG of 12/11/2024, QT has lengthened. Assessment and Plan Assessment and Plan (1) Mild cognitive impairment: Status: Acute (2) History of resection of meningioma: Status: Acute (3) Chronic subdural hematoma: Status: Chronic Medications: New levetiracetam Take 1 tablet orally 3 times daily for 1 month then 1 tablet twicedaily for 1 month then 1 tablet daily for 1 month. 180 tabs 0RF 90 days Plan Details Additional Comments: The patient has a history of left calvarial mass (the patient's daughter reports that this was a meningioma) with intracalvarial and extracalvarial extension. She underwent surgical resection of this lesion in December 2022 with subsequent cranioplasty. She had a postoperative stroke that manifested with dysarthria and possibly other symptoms (details regarding this are presently notavailable). One week postoperatively she underwent another cranial surgery for evacuation of a hemorrhage (I suspect this may have been a subdural hematoma; official records are presently not available). She has had a residual left sided chronic subdural hematoma. She had generalized weakness and gait imbalance postoperatively but was subsequently able to return home. She ambulated with a cane or a rollator. She developed hyponatremia. The etiology of this is unclear. In November 2024, she had generalized weakness and dysarthria. The possibility of a stroke was raised however on further assessment no acute stroke was identified. On brain imaging evaluation she was found to have a left calvarial chronic subdural hematoma with possibly a small acute component which was slightly enlarged compared to her scan in December 2022. She was transferred to [facility] in [place]. On neurosurgical evaluation, she was not felt to require surgery. A head MRI did not reveal evidence of tumor recurrence. Apparently, the possibility of a seizure was raised at 1 point however the patient's daughter reported that an EEG was normal and on subsequent evaluation by another physician, the diagnosis of a seizure was questioned. Levetiracetam was initiated in November 2024; she has had a side effect of tremor. She resides at home and receives outpatient physical therapy. She was treated for urinary tract infection earlier in 2024. The patient reported having left leg weakness. On exam today, no weakness in the quadriceps bilaterally is noted. At her initial assessment at this office in December 2024 she exhibited a right leg tremor, rigidity in the wrists, and tremor in the upper extremities she has had some hypophonia raising concern for the presence of Parkinson's disease. Her dose of levetiracetam was reduced since her last visit and she has had reduction of her tremor. No rigidity is noted on exam today. Levetiracetam may be the cause of her tremor the possibility of Parkinson's disease is a diagnostic consideration though now I feel this latter possibility is less likely. Based on currently available information, I am not convinced that she has epilepsy. Her EEG in January 2025 revealed left hemispheric slowing. No epileptiform discharges were seen. She continues to have mild hyponatremia. - I will have her begin a levetiracetam taper. Levetiracetam will be reducedto 250 mg 3 times daily for 1 month then twice daily for 1 month then once dailyfor 1 month then discontinued. - She is currently receiving physical therapy at at home. She is able to ambulate short distances with a rollator. - Details regarding the patient's tumor will be obtained for review. Per report of the daughter the patient had radiation therapy postoperatively in nd has been followed with PET scans yearly and brain MRI scans every 3 months. The patient's daughter however reported that the tumor was not felt to be malignant. - Since the possibility of Parkinson's disease appears less likely at this time, the patient's course will be followed, and no treatment for this conditionwill be initiated at this time. I will have her return for reassessment in 4 months. 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 current use of amiodarone Paroxysmal atrial fibrillation Mild aortic stenosis Chronic anemia Carotid artery bruit Ischemic cerebrovascular accident (CVA) Presbycusis History of rheumatic fever as a child Grade II diastolic dysfunction Intracranial epidural hematoma Cerebrovascular disease Mitral stenosis Pulmonary hypertension Stroke/cerebrovascular accident Scalp lesion Hemorrhoids High cholesterol HTN (hypertension) Surgical History H/O craniotomy Status post hemorrhoidectomy (~08/19/20) S/P carpal tunnel release S/P bilateral breast reduction S/P hysterectomy Family History Father CVA (cerebral vascular accident) Heart disease Mother Diabetes Social History household members: children and other details: BRADY Upton lives with her. housing: house current occupational status: retired Smoking Status: Never smoker alcohol intake: never Clinical Quality Measures Falls Risk Screening/Assistive Devices Have you fallen in the past year?: No Coding Level of Care Code Off vis,est,level 4 Diagnoses Mild cognitive impairment G31.84 History of resection of meningioma Z98.890; Z86.03 Chronic subdural hematoma I62.03 02/27/25 1429 <Electronically signed by Odilon sellers MD> Date _ Odilon Melchor MD Cosigner Signature: Date (if applicable) CC: Dr. Monika Venegas MD; Dr. Corey Kiran MD ~ [facility] [employer] Work Phone: Reason for referral (narrative)* Consultation (Urgent) - New Request Specialty Diagnoses / Procedures Referred By Martha maciel Referred To Contact Oncology Diagnoses Skull mass Shaye Weston APRN-CNP [address] [place] [address] Referral ID Status Reason Start Date Expiration Date V isits Requested Visits Authorized [id number] New Request 09/30/2022 10/25/2023 1 1 * MRI/CAT Scan (Emergency) - New Request Specialty Diagnoses / Procedures Referred By Martha maciel Referred To Contact Diagnoses Skull mass Procedures CT ABDOMEN/PELVIS WITH CONTRAST CHG CT SCAN,ABDOMENT AND PELVIS,W CONTRAST Shaye Weston APRN-CNP [address] [place] [address] Referral ID Status Reason Start Date Expiration Date V isits Requested Visits Authorized [id number] New Request 09/30/2022 10/25/2023 1 1 * MRI/CAT Scan (Emergency) - New Request Specialty Diagnoses / Procedures Referred By Martha maciel Referred To Contact Diagnoses Skull mass Procedures CT CHEST WITH CONTRAST CHG DIAGNOSTIC COMPUTED TOMOGRAPHY THORAX W/CONTRAST Shaye Weston APRN-CNP [address] [place] [address] Referral ID Status Reason Start Date Expiration Date V isits Requested Visits Authorized [id number] New Request 09/30/2022 10/25/2023 1 [facility]No reason for referral information availableWHolmes [facility] Work Phone: Reason for visit Narrative* Auth/Cert Specialty Diagnoses / Procedures Referred By Martha maciel Referred To Contact Diagnoses Epidural hematoma Subdural Hematoma Jl Nazario MB [facility] [address] [place] [address] Phone: tel: fax: [facility] [address] [place] [address] Referral ID Status Reason Start Date Expiration Date Visits Re quested Visits Authorized [id number] 1 1 [facility] Family History No Family History Records Found Relationship Condition Age at Onset Recorded Date/T emir father Cerebrovascular accident (CVA) Unknown Cardiac disease Unknown mother Diabetes mellitus Unknown Advance Directives No Advanced Directives Records Found Advance Directive Response Recorded Date/ Time Living Will No July 31 8:17pm Power of Knife Cutter No July 31, 2021 8:17pm Advance Directive Response Recorded Date/ Time Living Will No July 31 7:17pm Power of Knife Cutter No July 31, 2021 7:17pm Advance Directive Response Recorded Date/ Time Name of Medical Power of Knife Cutter herbie Rapp December 10, 2022 11:50am Living Will Yes December 10, 2022 1 1:50am Power of Knife Cutter Yes December 10, 2022 11:50am Latest Code [...] Date/ Time Name of Medical Power of Knife Cutter herbie Rapp December 10, 2022 11:50am Name of Medical Power of Knife Cutter Reggie boudreaux December 23, 2022 6:27pm Living Will Yes December 23, 2022 6:27pm Power of Knife Cutter Yes December 23 6:27pm Advance Directive Response Recorded Date/ Time Living Will Yes December 23, 2022 5:27pm Power of Knife Cutter Yes December 23 5:27pm Date Activated Date [...] Do you have a Healthcare Power of Knife Cutter? Yes September 27, 2024 9:32am Name of Medical Power of Knife Cutter Alexsandra September 27, 2024 9:32am Date Activated [...] Do you have a Healthcare Power of Knife Cutter? Yes September 27, 2024 9:32am Name of Medical Power of Knife Cutter Alexsandra September 27, 2024 9:32am Do you have a Healthcare Power of Knife Cutter? No November 07, 2024 11:15am Advance Directive Response Recorded Date/ Time Do you have a Healthcare Power of Knife Cutter? Yes September 27, 2024 9:32am Name of Medical Power of Knife Cutter Alexsandra September 27, 2024 9:32am Do you have a Healthcare Power of Knife Cutter? No November 07, 2024 11:15am Do you have a Healthcare Power of Knife Cutter? Yes November 13, 2024 10:32am Name of Medical Power of Knife Cutter Alexsandratahir Grullon November 13, 2024 10:32am Advance Directive Response Recorded Date/ Time Do you have a Healthcare Power of Knife Cutter? Yes December 03, 2024 5:33pm Do you have a Healthcare Power of Knife Cutter? Yes September 27, 2024 9:32am Name of Medical Power of Knife Cutter Alexsandra September 27, 2024 9:32am Do you have a Healthcare Power of Knife Cutter? No November 07, 2024 11:15am Do you have a Healthcare Power of Knife Cutter? Yes November 13, 2024 10:32am Name of Medical Power of Knife Cutter Alexsandratahir Grullon November 13, 2024 10:32am Advance Directive Response Recorded Date/ Time Do you have a Healthcare Power of Knife Cutter? Yes December 03, 2024 11:06pm Do you have a Healthcare Power of Knife Cutter? Yes September 27, 2024 9:32am Name of Medical Power of Knife Cutter Alexsandra September 27, 2024 9:32am Do you have a Healthcare Power of Knife Cutter? No November 07, 2024 11:15am Do you have a Healthcare Power of Knife Cutter? Yes November 13, 2024 10:32am Name of Medical Power of Knife Cutter Alexsandra Grullon November 13, 2024 10:32am Advance Directive Response Recorded Date/ Time Do you have a Healthcare Power of Knife Cutter? Yes December 03, 2024 11:06pm Do you have a Healthcare Power of Knife Cutter? No November 07, 2024 11:15am Do you have a Healthcare Power of Knife Cutter? Yes November 13, 2024 10:32am Name of Medical Power of Knife Cutter Alexsandra Grullon November 13, 2024 10:32am Advance Directive Response Recorded Date/ Time Do you have a Healthcare Power of Knife Cutter? Yes December 03, 2024 11:06pm Do you have a Healthcare Power of Knife Cutter? Yes November 13, 2024 10:32am Name of Medical Power of Knife Cutter Alexsandra Grullon November 13, 2024 10:32am Chief [...] RVR AFIB WITH RVR STROKE STROKE S/P [facility] 12/24/22 Reason for Visit Acute blood loss [...] Carotid artery bruit Ischemic cerebrovascular accident (CVA) director long term care current use of amiodarone Mitral valve stenosis, [...] Intracranial epidural hematoma November 12, 2024 6:16pm director long term care current use of amiodarone November 12, 2024 [...] Intracranial epidural hematoma November 12, 2024 6:16pm director long term care current use of amiodarone November 12, 2024 [...] 10: 35pm Intracranial epidural hematoma November 10:35pm Chief Complaint Admit Date chest pain September [...] SUBDURAL HEMATOMA November 27, 2024 4:47 pm GENERALIZED WEAKNESS WITH AMBULATORY DYS FUNCTION December 03, 2024 10:40pm GENERALIZED WEAKNESS WITH AMBULATORY DYS FUNCTION December 04, 2024 8:17am GENERALIZED WEAKNESS WITH AMBULATORY DYS FUNCTION December 05, 2024 8:34am GENERALIZED WEAKNESS WITH AMBULATORY DYS FUNCTION December 05, 2024 6:07pm GENERALIZED WEAKNESS WITH AMBULATORY DYS FUNCTION December 06, 2024 2:55pm Reason for Visit Admit Date Decubitus ulcer [...] Intracranial epidural hematoma November 12, 2024 6:16pm director long term care current use of amiodarone November 12, 2024 6:16pm Mild aortic stenosis November 12, 2024 6:16 pm Paroxysmal atrial fibrillation November 12, 2024 6:16pm Presbycusis November 12, 2024 6:16p m Severe anxiety November 12, 2024 6:16p m Acute cystitis November 12, 2024 6:16p m Hypo-osmolality and hyponatremia November 6:16pm Bradycardia, sinus November 12, 2024 6:16p m Abnormal finding on urinalysis December 05, 2024 6:07pm Ambulatory dysfunction December 05, 2024 6: 07pm Falls December 05, 2024 6:07p m Generalized weakness December 05, 2024 6:07 pm History of subdural hematoma December 05 6:07pm Hyponatremia December 05, 2024 6:07p m Ischemic cerebrovascular accident (CVA) December 05, 2024 6:07pm Seizure disorder December 05, 2024 6:07p m Anticoagulant long-term use December 05 6:07pm Intracranial epidural hematoma December 05, 2024 6:07pm Reason for Visit Admit Date Decubitus ulcer of coccyx, stage 2 November 12, 2024 6:16pm Generalized muscle weakness November 12 6:16pm Paroxysmal atrial fibrillation November 12, 2024 6:16pm Physical debility November 12, 2024 6:16p m Seizure disorder November 12, 2024 6:16p m Severe anxiety November 12, 2024 6:16p m Acute cystitis November 12, 2024 6:16p m Anticoagulant long-term use November 12 6:16pm Hypo-osmolality and hyponatremia November 6:16pm Bradycardia, sinus November 12, 2024 6:16p m Carotid artery bruit November 12, 2024 6:16 pm Chronic anemia November 12, 2024 6:16p m Grade II diastolic dysfunction November 12, 2024 6:16pm High cholesterol November 12, 2024 6:16p m HTN (hypertension) November 12, 2024 6:16p m Intracranial epidural hematoma November 12, 2024 6:16pm jail current use of amiodarone Rocio 9th, 2025 6:16pm Mild aortic stenosis November 12, 2024 6:16 pm Presbycusis November 12, 2024 6:16p m Abnormal finding on urinalysis December 05, 2024 6:07pm Ambulatory dysfunction December 05, 2024 6: 07pm Falls December 05, 2024 6:07p m Generalized weakness December 05, 2024 6:07 pm History of subdural hematoma December 05, 6:07pm Hyponatremia December 05, 2024 6:07p m Ischemic cerebrovascular accident (CVA) December 05, 2024 6:07pm Seizure disorder December 05, 2024 6:07p m Anticoagulant long-term use December 05 6:07pm Intracranial epidural hematoma December 05, 2024 6:07pm Chief Complaint Admit Date chest pain September [...] SUBDURAL HEMATOMA November 27, 2024 4:47 pm GENERALIZED WEAKNESS WITH AMBULATORY DYS FUNCTION December 03, 2024 10:40pm GENERALIZED WEAKNESS WITH AMBULATORY DYS FUNCTION December 04, 2024 8:17am GENERALIZED WEAKNESS WITH AMBULATORY DYS FUNCTION December 05, 2024 8:34am GENERALIZED WEAKNESS WITH AMBULATORY DYS FUNCTION December 05, 2024 6:07pm GENERALIZED WEAKNESS WITH AMBULATORY DYS FUNCTION December 06, 2024 2:55pm 9 M FU December 11, 2024 3:10p m Reason for Visit Admit Date Decubitus ulcer of coccyx, stage 2 November 12, 2024 6:16pm Generalized muscle weakness November 12 6:16pm director long term care current use of amiodarone November 12, 2024 6:16pm Paroxysmal atrial fibrillation November 12, 2024 6:16pm Physical debility November 12, 2024 6:16p m Seizure disorder November 12, 2024 6:16p m Severe anxiety November 12, 2024 6:16p m Acute cystitis November 12, 2024 6:16p m Anticoagulant long-term use November 12 6:16pm Hypo-osmolality and hyponatremia November 6:16pm Bradycardia, sinus November 12, 2024 6:16p m Carotid artery bruit November 12, 2024 6:16 pm Chronic anemia November 12, 2024 6:16p m Grade II diastolic dysfunction November 12, 2024 6:16pm High cholesterol November 12, 2024 6:16p m HTN (hypertension) November 12, 2024 6:16p m Intracranial epidural hematoma November 12, 2024 6:16pm Mild aortic stenosis November 12, 2024 6:16 pm Presbycusis November 12, 2024 6:16p m Abnormal finding on urinalysis December 05, 2024 6:07pm Ambulatory dysfunction December 05, 2024 6: 07pm Falls December 05, 2024 6:07p m Generalized weakness December 05, 2024 6:07 pm History of subdural hematoma December 05, 6:07pm Hyponatremia December 05, 2024 6:07p m Ischemic cerebrovascular accident (CVA) December 05, 2024 6:07pm Seizure disorder December 05, 2024 6:07p m Anticoagulant long-term use December 05 6:07pm Intracranial epidural hematoma December 05, 2024 6:07pm Elevated LFTs December 11, 2024 3:10p m director long term care current use of amiodarone December 11, 2024 3:10pm Paroxysmal atrial fibrillation December 11, 2024 3:10pm Chief Complaint Admit Date chest pain September [...] SUBDURAL HEMATOMA November 27, 2024 4:47 pm GENERALIZED WEAKNESS WITH AMBULATORY DYS FUNCTION December 03, 2024 10:40pm GENERALIZED WEAKNESS WITH AMBULATORY DYS FUNCTION December 04, 2024 8:17am GENERALIZED WEAKNESS WITH AMBULATORY DYS FUNCTION December 05, 2024 8:34am GENERALIZED WEAKNESS WITH AMBULATORY DYS FUNCTION December 05, 2024 6:07pm GENERALIZED WEAKNESS WITH AMBULATORY DYS FUNCTION December 06, 2024 2:55pm 9 M FU December 11, 2024 3:10p m SEIZURE December 20, 2024 8:52 am Reason for Visit Admit Date Decubitus ulcer of coccyx, stage 2 November 12, 2024 6:16pm Generalized muscle weakness November 12 6:16pm director long term care current use of amiodarone November 12, 2024 6:16pm Paroxysmal atrial fibrillation November 12, 2024 6:16pm Physical debility November 12, 2024 6:16p m Seizure disorder November 12, 2024 6:16p m Severe anxiety November 12, 2024 6:16p m Acute cystitis November 12, 2024 6:16p m Anticoagulant long-term use November 12 6:16pm Hypo-osmolality and hyponatremia November 6:16pm Bradycardia, sinus November 12, 2024 6:16p m Carotid artery bruit November 12, 2024 6:16 pm Chronic anemia November 12, 2024 6:16p m Grade II diastolic dysfunction November 12, 2024 6:16pm High cholesterol November 12, 2024 6:16p m HTN (hypertension) November 12, 2024 6:16p m Intracranial epidural hematoma November 12, 2024 6:16pm Mild aortic stenosis November 12, 2024 6:16 pm Presbycusis November 12, 2024 6:16p m Abnormal finding on urinalysis December 05, 2024 6:07pm Ambulatory dysfunction December 05, 2024 6: 07pm Falls December 05, 2024 6:07p m Generalized weakness December 05, 2024 6:07 pm History of subdural hematoma December 05, 6:07pm Hyponatremia December 05, 2024 6:07p m Ischemic cerebrovascular accident (CVA) December 05, 2024 6:07pm Seizure disorder December 05, 2024 6:07p m Anticoagulant long-term use December 05 6:07pm Intracranial epidural hematoma December 05, 2024 6:07pm Bilateral carotid bruits December 11, 2024 3:10pm Elevated LFTs December 11, 2024 3:10p m Heart murmur December 11, 2024 3:10p m Ischemic cerebrovascular accident (CVA) December 11, 2024 3:10pm jail current use of amiodarone December 11, 2024 3:10pm Paroxysmal atrial fibrillation December 11, 2024 3:10pm Chief Complaint Admit Date chest pain September [...] SUBDURAL HEMATOMA November 27, 2024 4:47 pm GENERALIZED WEAKNESS WITH AMBULATORY DYS FUNCTION December 03, 2024 10:40pm GENERALIZED WEAKNESS WITH AMBULATORY DYS FUNCTION December 04, 2024 8:17am GENERALIZED WEAKNESS WITH AMBULATORY DYS FUNCTION December 05, 2024 8:34am GENERALIZED WEAKNESS WITH AMBULATORY DYS FUNCTION December 05, 2024 6:07pm GENERALIZED WEAKNESS WITH AMBULATORY DYS FUNCTION December 06, 2024 2:55pm 9 M FU December 11, 2024 3:10p m SEIZURE December 20, 2024 8:52 am E ORDER December 20, 2024 10:3 3am EARS CLOGGED December 20, 2024 11:1 7am Chief Complaint Admit Date chest pain September [...] SUBDURAL HEMATOMA November 27, 2024 4:47 pm GENERALIZED WEAKNESS WITH AMBULATORY DYS FUNCTION December 03, 2024 10:40pm GENERALIZED WEAKNESS WITH AMBULATORY DYS FUNCTION December 04, 2024 8:17am GENERALIZED WEAKNESS WITH AMBULATORY DYS FUNCTION December 05, 2024 8:34am GENERALIZED WEAKNESS WITH AMBULATORY DYS FUNCTION December 05, 2024 6:07pm GENERALIZED WEAKNESS WITH AMBULATORY DYS FUNCTION December 06, 2024 2:55pm LAB WORK December 10, 2024 10:40 am 9 M FU December 11, 2024 3:10p m LABWORK December 17, 2024 5:00 am SEIZURE December 20, 2024 8:52 am E ORDER December 20, 2024 10:3 3am EARS CLOGGED December 20, 2024 11:1 7am Reason for Visit Admit Date Decubitus ulcer of coccyx, stage 2 November 12, 2024 6:16pm Generalized muscle weakness November 12 6:16pm jail current use of amiodarone November 12, 2024 6:16pm Paroxysmal atrial fibrillation November 12, 2024 6:16pm Physical debility November 12, 2024 6:16p m Seizure disorder November 12, 2024 6:16p m Severe anxiety November 12, 2024 6:16p m Acute cystitis November 12, 2024 6:16p m Anticoagulant long-term use November 12 6:16pm Hypo-osmolality and hyponatremia November 6:16pm Bradycardia, sinus November 12, 2024 6:16p m Carotid artery bruit November 12, 2024 6:16 pm Chronic anemia November 12, 2024 6:16p m Grade II diastolic dysfunction November 12, 2024 6:16pm High cholesterol November 12, 2024 6:16p m HTN (hypertension) November 12, 2024 6:16p m Intracranial epidural hematoma November 12, 2024 6:16pm Mild aortic stenosis November 12, 2024 6:16 pm Presbycusis November 12, 2024 6:16p m Abnormal finding on urinalysis December 05, 2024 6:07pm Ambulatory dysfunction December 05, 2024 6: 07pm Falls December 05, 2024 6:07p m Generalized weakness December 05, 2024 6:07 pm History of subdural hematoma December 05, 025 6:07pm Hyponatremia December 05, 2024 6:07p m Ischemic cerebrovascular accident (CVA) December 05, 2024 6:07pm Seizure disorder December 05, 2024 6:07p m Anticoagulant long-term use December 05 6:07pm Intracranial epidural hematoma December 05, 2024 6:07pm Bilateral carotid bruits December 11, 2024 3:10pm Elevated LFTs December 11, 2024 3:10p m Heart murmur December 11, 2024 3:10p m Ischemic cerebrovascular accident (CVA) December 11, 2024 3:10pm director long term care current use of amiodarone December 11, 2024 3:10pm Paroxysmal atrial fibrillation December 11, 2024 3:10pm Impacted cerumen of both ears December 20, 2024 11:17am Chief Complaint Admit Date chest pain September [...] SUBDURAL HEMATOMA November 27, 2024 4:47 pm GENERALIZED WEAKNESS WITH AMBULATORY DYS FUNCTION December 03, 2024 10:40pm GENERALIZED WEAKNESS WITH AMBULATORY DYS FUNCTION December 04, 2024 8:17am GENERALIZED WEAKNESS WITH AMBULATORY DYS FUNCTION December 05, 2024 8:34am GENERALIZED WEAKNESS WITH AMBULATORY DYS FUNCTION December 05, 2024 6:07pm GENERALIZED WEAKNESS WITH AMBULATORY DYS FUNCTION December 06, 2024 2:55pm LAB WORK December 10, 2024 10:40 am Admission Exam December 11, 2024 1:48p m 9 M FU December 11, 2024 3:10p m LABWORK December 17, 2024 5:00 am SEIZURE December 20, 2024 8:52 am E ORDER December 20, 2024 10:3 3am EARS CLOGGED December 20, 2024 11:1 7am LABWORK December 24, 2024 5:00 am New Concern December 25, 2024 10:5 7am LAB WORK December 31, 2024 4:00 am G31.84 - Mild cognitive impairment of un certain or January 17, 2025 8:07am Reason for Visit Admit Date Decubitus ulcer of coccyx, stage 2 November 12, 2024 6:16pm Generalized muscle weakness November 12 6:16pm jail current use of amiodarone November 12, 2024 6:16pm Paroxysmal atrial fibrillation November 12, 2024 6:16pm Physical debility November 12, 2024 6:16p m Seizure disorder November 12, 2024 6:16p m Severe anxiety November 12, 2024 6:16p m Acute cystitis November 12, 2024 6:16p m Anticoagulant long-term use November 12 6:16pm Hypo-osmolality and hyponatremia November 6:16pm Bradycardia, sinus November 12, 2024 6:16p m Carotid artery bruit November 12, 2024 6:16 pm Chronic anemia November 12, 2024 6:16p m Grade II diastolic dysfunction November 12, 2024 6:16pm High cholesterol November 12, 2024 6:16p m HTN (hypertension) November 12, 2024 6:16p m Intracranial epidural hematoma November 12, 2024 6:16pm Mild aortic stenosis November 12, 2024 6:16 pm Presbycusis November 12, 2024 6:16p m Abnormal finding on urinalysis December 05, 2024 6:07pm Ambulatory dysfunction December 05, 2024 6: 07pm Falls December 05, 2024 6:07p m Generalized weakness December 05, 2024 6:07 pm History of subdural hematoma December 05, 025 6:07pm Hyponatremia December 05, 2024 6:07p m Ischemic cerebrovascular accident (CVA) December 05, 2024 6:07pm Seizure disorder December 05, 2024 6:07p m Anticoagulant long-term use December 05 6:07pm Intracranial epidural hematoma December 05, 2024 6:07pm Bilateral carotid bruits December 11, 2024 3:10pm Elevated LFTs December 11, 2024 3:10p m Heart murmur December 11, 2024 3:10p m Ischemic cerebrovascular accident (CVA) December 11, 2024 3:10pm director long term care current use of amiodarone December 11, 2024 3:10pm Paroxysmal atrial fibrillation December 11, 2024 3:10pm History of resection of meningioma December 20, 2024 8:52am Hyponatremia December 20, 2024 8:52 am Mild cognitive impairment December 20 8:52am Parkinson's disease December 20, 2024 8:52 am Seizure December 20, 2024 8:52 am Chronic subdural hematoma December 20 8:52am Impacted cerumen of both ears December 20, 2024 11:17am Chief Complaint Admit Date chest pain September [...] SUBDURAL HEMATOMA November 27, 2024 4:47 pm GENERALIZED WEAKNESS WITH AMBULATORY DYS FUNCTION December 03, 2024 10:40pm GENERALIZED WEAKNESS WITH AMBULATORY DYS FUNCTION December 04, 2024 8:17am GENERALIZED WEAKNESS WITH AMBULATORY DYS FUNCTION December 05, 2024 8:34am GENERALIZED WEAKNESS WITH AMBULATORY DYS FUNCTION December 05, 2024 6:07pm GENERALIZED WEAKNESS WITH AMBULATORY DYS FUNCTION December 06, 2024 2:55pm LAB WORK December 10, 2024 10:40 am Admission Exam December 10, 2024 6:08p m Admission Exam December 11, 2024 1:48p m 9 M FU December 11, 2024 3:10p m LABWORK December 17, 2024 5:00 am SEIZURE December 20, 2024 8:52 am E ORDER December 20, 2024 10:3 3am EARS CLOGGED December 20, 2024 11:1 7am LABWORK December 24, 2024 5:00 am New Concern December 25, 2024 10:5 7am LAB WORK December 31, 2024 4:00 am G31.84 - Mild cognitive impairment of un certain or January 17, 2025 8:07am Chief Complaint Admit Date chest pain September [...] SUBDURAL HEMATOMA November 27, 2024 4:47 pm GENERALIZED WEAKNESS WITH AMBULATORY DYS FUNCTION December 03, 2024 10:40pm GENERALIZED WEAKNESS WITH AMBULATORY DYS FUNCTION December 04, 2024 8:17am GENERALIZED WEAKNESS WITH AMBULATORY DYS FUNCTION December 05, 2024 8:34am GENERALIZED WEAKNESS WITH AMBULATORY DYS FUNCTION December 05, 2024 6:07pm GENERALIZED WEAKNESS WITH AMBULATORY DYS FUNCTION December 06, 2024 2:55pm LAB WORK December 10, 2024 10:40 am Admission Exam December 10, 2024 6:08p m Admission Exam December 11, 2024 1:48p m 9 M FU December 11, 2024 3:10p m LABWORK December 17, 2024 5:00 am SEIZURE December 20, 2024 8:52 am E ORDER December 20, 2024 10:3 3am EARS CLOGGED December 20, 2024 11:1 7am LABWORK December 24, 2024 5:00 am New Concern December 25, 2024 10:5 7am LAB WORK December 31, 2024 4:00 am LABWORK January 14, 2025 5: 00am G31.84 - Mild cognitive impairment of un certain or January 17, 2025 8:07am 1 M FU January 18, 2025 3: 27pm Reason for Visit Admit Date Decubitus ulcer of coccyx, stage 2 November 12, 2024 6:16pm Generalized muscle weakness November 12 6:16pm director long term care current use of amiodarone November 12, 2024 6:16pm Paroxysmal atrial fibrillation November 12, 2024 6:16pm Physical debility November 12, 2024 6:16p m Seizure disorder November 12, 2024 6:16p m Severe anxiety November 12, 2024 6:16p m Acute cystitis November 12, 2024 6:16p m Anticoagulant long-term use November 12 6:16pm Hypo-osmolality and hyponatremia November 6:16pm Bradycardia, sinus November 12, 2024 6:16p m Carotid artery bruit November 12, 2024 6:16 pm Chronic anemia November 12, 2024 6:16p m Grade II diastolic dysfunction November 12, 2024 6:16pm High cholesterol November 12, 2024 6:16p m HTN (hypertension) November 12, 2024 6:16p m Intracranial epidural hematoma November 12, 2024 6:16pm Mild aortic stenosis November 12, 2024 6:16 pm Presbycusis November 12, 2024 6:16p m Abnormal finding on urinalysis December 05, 2024 6:07pm Ambulatory dysfunction December 05, 2024 6: 07pm Falls December 05, 2024 6:07p m Generalized weakness December 05, 2024 6:07 pm History of subdural hematoma December 05, 2 6:07pm Hyponatremia December 05, 2024 6:07p m Ischemic cerebrovascular accident (CVA) December 05, 2024 6:07pm Seizure disorder December 05, 2024 6:07p m Anticoagulant long-term use December 05 6:07pm Intracranial epidural hematoma December 05, 2024 6:07pm Bilateral carotid bruits December 11, 2024 3:10pm Elevated LFTs December 11, 2024 3:10p m Heart murmur December 11, 2024 3:10p m Ischemic cerebrovascular accident (CVA) December 11, 2024 3:10pm jail current use of amiodarone December 11, 2024 3:10pm Paroxysmal atrial fibrillation December 11, 2024 3:10pm History of resection of meningioma December 20, 2024 8:52am Hyponatremia December 20, 2024 8:52 am Mild cognitive impairment December 20 8:52am Parkinson's disease December 20, 2024 8:52 am Seizure December 20, 2024 8:52 am Chronic subdural hematoma December 20 8:52am Impacted cerumen of both ears December 20, 2024 11:17am Bilateral carotid bruits January 18 3:27pm Elevated LFTs January 18, 2025 3: 27pm Heart murmur January 18, 2025 3: 27pm Ischemic cerebrovascular accident (CVA) January 18, 2025 3:27pm jail current use of amiodarone Augu st 2024 3:27pm Paroxysmal atrial fibrillation January 182024 3:27pm Chief Complaint Admit Date chest pain September [...] SUBDURAL HEMATOMA November 27, 2024 4:47 pm GENERALIZED WEAKNESS WITH AMBULATORY DYS FUNCTION December 03, 2024 10:40pm GENERALIZED WEAKNESS WITH AMBULATORY DYS FUNCTION December 04, 2024 8:17am GENERALIZED WEAKNESS WITH AMBULATORY DYS FUNCTION December 05, 2024 8:34am GENERALIZED WEAKNESS WITH AMBULATORY DYS FUNCTION December 05, 2024 6:07pm GENERALIZED WEAKNESS WITH AMBULATORY DYS FUNCTION December 06, 2024 2:55pm LAB WORK December 10, 2024 10:40 am Admission Exam December 10, 2024 6:08p m Admission Exam December 11, 2024 1:48p m 9 M FU December 11, 2024 3:10p m LABWORK December 17, 2024 5:00 am SEIZURE December 20, 2024 8:52 am E ORDER December 20, 2024 10:3 3am EARS CLOGGED December 20, 2024 11:1 7am LABWORK December 24, 2024 5:00 am New Concern December 25, 2024 10:5 7am LAB WORK December 31, 2024 4:00 am LAB WORK January 07, 2025 5:0 0am LABWORK January 14, 2025 5: 00am G31.84 - Mild cognitive impairment of un certain or January 17, 2025 8:07am 1 M FU January 18, 2025 3: 27pm Chief Complaint Admit Date chest pain September [...] SUBDURAL HEMATOMA November 27, 2024 4:47 pm GENERALIZED WEAKNESS WITH AMBULATORY DYS FUNCTION December 03, 2024 10:40pm GENERALIZED WEAKNESS WITH AMBULATORY DYS FUNCTION December 04, 2024 8:17am GENERALIZED WEAKNESS WITH AMBULATORY DYS FUNCTION December 05, 2024 8:34am GENERALIZED WEAKNESS WITH AMBULATORY DYS FUNCTION December 05, 2024 6:07pm GENERALIZED WEAKNESS WITH AMBULATORY DYS FUNCTION December 06, 2024 2:55pm LAB WORK December 10, 2024 10:40 am 9 M FU December 11, 2024 3:10p m LABWORK December 17, 2024 5:00 am SEIZURE December 20, 2024 8:52 am E ORDER December 20, 2024 10:3 3am EARS CLOGGED December 20, 2024 11:1 7am LABWORK December 24, 2024 5:00 am New Concern December 25, 2024 10:5 7am LAB WORK December 31, 2024 4:00 am G31.84 - Mild cognitive impairment of un certain or January 17, 2025 8:07am Chief Complaint Admit Date stroke alert November 07, 2024 10:51 am [...] SUBDURAL HEMATOMA November 27, 2024 4:47 pm GENERALIZED WEAKNESS WITH AMBULATORY DYS FUNCTION December 03, 2024 10:40pm GENERALIZED WEAKNESS WITH AMBULATORY DYS FUNCTION December 04, 2024 8:17am GENERALIZED WEAKNESS WITH AMBULATORY DYS FUNCTION December 05, 2024 8:34am GENERALIZED WEAKNESS WITH AMBULATORY DYS FUNCTION December 05, 2024 6:07pm GENERALIZED WEAKNESS WITH AMBULATORY DYS FUNCTION December 06, 2024 2:55pm LAB WORK December 10, 2024 10:40 am Admission Exam December 10, 2024 6:08p m Admission Exam December 11, 2024 1:48p m 9 M FU December 11, 2024 3:10p m LABWORK December 17, 2024 5:00 am SEIZURE December 20, 2024 8:52 am E ORDER December 20, 2024 10:3 3am EARS CLOGGED December 20, 2024 11:1 7am LABWORK December 24, 2024 5:00 am New Concern December 25, 2024 10:5 7am LAB WORK December 31, 2024 4:00 am LAB WORK January 07, 2025 5:0 0am LABWORK January 14, 2025 5: 00am G31.84 - Mild cognitive impairment of un certain or January 17, 2025 8:07am 1 M FU January 18, 2025 3: 27pm Needs BP and EKG January 31, 2025 1: 32pm Chief Complaint Admit Date stroke alert November 07, 2024 10:51 am [...] SUBDURAL HEMATOMA November 27, 2024 4:47 pm GENERALIZED WEAKNESS WITH AMBULATORY DYS FUNCTION December 03, 2024 10:40pm GENERALIZED WEAKNESS WITH AMBULATORY DYS FUNCTION December 04, 2024 8:17am GENERALIZED WEAKNESS WITH AMBULATORY DYS FUNCTION December 05, 2024 8:34am GENERALIZED WEAKNESS WITH AMBULATORY DYS FUNCTION December 05, 2024 6:07pm GENERALIZED WEAKNESS WITH AMBULATORY DYS FUNCTION December 06, 2024 2:55pm LAB WORK December 10, 2024 10:40 am Admission Exam December 10, 2024 6:08p m Admission Exam December 11, 2024 1:48p m 9 M FU December 11, 2024 3:10p m LABWORK December 17, 2024 5:00 am SEIZURE December 20, 2024 8:52 am E ORDER December 20, 2024 10:3 3am EARS CLOGGED December 20, 2024 11:1 7am LABWORK December 24, 2024 5:00 am New Concern December 25, 2024 10:5 7am LAB WORK December 31, 2024 4:00 am LAB WORK January 07, 2025 5:0 0am LABWORK January 14, 2025 5: 00am G31.84 - Mild cognitive impairment of un certain or January 17, 2025 8:07am 1 M FU January 18, 2025 3: 27pm Needs BP and EKG January 31, 2025 1: 32pm 2 M FU February 26, 2025 9:39am Reason for Visit Admit Date Decubitus ulcer of coccyx, stage 2 November 12, 2024 6:16pm Generalized muscle weakness November 12 6:16pm director long term care current use of amiodarone November 12, 2024 6:16pm Paroxysmal atrial fibrillation November 12, 2024 6:16pm Physical debility November 12, 2024 6:16p m Seizure disorder November 12, 2024 6:16p m Severe anxiety November 12, 2024 6:16p m Acute cystitis November 12, 2024 6:16p m Anticoagulant long-term use November 12 6:16pm Hypo-osmolality and hyponatremia November 6:16pm Bradycardia, sinus November 12, 2024 6:16p m Carotid artery bruit November 12, 2024 6:16 pm Chronic anemia November 12, 2024 6:16p m Grade II diastolic dysfunction November 12, 2024 6:16pm High cholesterol November 12, 2024 6:16p m HTN (hypertension) November 12, 2024 6:16p m Intracranial epidural hematoma November 12, 2024 6:16pm Mild aortic stenosis November 12, 2024 6:16 pm Presbycusis November 12, 2024 6:16p m Abnormal finding on urinalysis December 05, 2024 6:07pm Ambulatory dysfunction December 05, 2024 6: 07pm Falls December 05, 2024 6:07p m Generalized weakness December 05, 2024 6:07 pm History of subdural hematoma December 05 025 6:07pm Hyponatremia December 05, 2024 6:07p m Ischemic cerebrovascular accident (CVA) December 05, 2024 6:07pm Seizure disorder December 05, 2024 6:07p m Anticoagulant long-term use December 05 6:07pm Intracranial epidural hematoma December 05, 2024 6:07pm Bilateral carotid bruits December 11, 2024 3:10pm Elevated LFTs December 11, 2024 3:10p m Heart murmur December 11, 2024 3:10p m Ischemic cerebrovascular accident (CVA) December 11, 2024 3:10pm jail current use of amiodarone December 11, 2024 3:10pm Paroxysmal atrial fibrillation December 11, 2024 3:10pm History of resection of meningioma December 20, 2024 8:52am Hyponatremia December 20, 2024 8:52 am Mild cognitive impairment December 20 8:52am Parkinson's disease December 20, 2024 8:52 am Seizure December 20, 2024 8:52 am Chronic subdural hematoma December 20 8:52am Impacted cerumen of both ears December 20, 2024 11:17am Bilateral carotid bruits January 18 3:27pm Elevated LFTs January 18, 2025 3: 27pm Heart murmur January 18, 2025 3: 27pm Ischemic cerebrovascular accident (CVA) January 18, 2025 3:27pm jail current use of amiodarone Augu 2024 3:27pm Paroxysmal atrial fibrillation January 182024 3:27pm History of resection of meningioma Septe mber 2024 9:39am Mild cognitive impairment February 9:39am Chronic subdural hematoma February 9:39am Chief Complaint Admit Date SUBDURAL HEMATOMA November 12, 2024 6:16p m SUBDURAL HEMATOMA November 13, 2024 10:5 0am SUBDURAL HEMATOMA November 15, 2024 11:2 4am SUBDURAL HEMATOMA November 16, 2024 8:28 am SUBDURAL HEMATOMA November 19, 2024 8:26 am SUBDURAL HEMATOMA 2024 11:4 0am SUBDURAL HEMATOMA November 22, 2024 8:50 am SUBDURAL HEMATOMA November 26, 2024 12:0 6pm SUBDURAL HEMATOMA November 27, 2024 4:47 pm GENERALIZED WEAKNESS WITH AMBULATORY DYS FUNCTION December 03, 2024 10:40pm GENERALIZED WEAKNESS WITH AMBULATORY DYS FUNCTION December 04, 2024 8:17am GENERALIZED WEAKNESS WITH AMBULATORY DYS FUNCTION December 05, 2024 8:34am GENERALIZED WEAKNESS WITH AMBULATORY DYS FUNCTION December 05, 2024 6:07pm GENERALIZED WEAKNESS WITH AMBULATORY DYS FUNCTION December 06, 2024 2:55pm LAB WORK December 10, 2024 10:40 am Admission Exam December 10, 2024 6:08p m Admission Exam December 11, 2024 1:48p m 9 M FU December 11, 2024 3:10p m LABWORK December 17, 2024 5:00 am SEIZURE December 20, 2024 8:52 am E ORDER December 20, 2024 10:3 3am EARS CLOGGED December 20, 2024 11:1 7am LABWORK December 24, 2024 5:00 am New Concern December 25, 2024 10:5 7am LAB WORK December 31, 2024 4:00 am LAB WORK January 07, 2025 5:0 0am LABWORK January 14, 2025 5: 00am G31.84 - Mild cognitive impairment of un certain or January 17, 2025 8:07am 1 M FU January 18, 2025 3: 27pm Needs BP and EKG January 31, 2025 1: 32pm 2 M FU February 26, 2025 9:39am 8 WK March 13, 2025 2: 39pm Reason for Visit Admit Date Decubitus ulcer of coccyx, stage 2 November 12, 2024 6:16pm Generalized muscle weakness November 12 6:16pm jail current use of amiodarone November 12, 2024 6:16pm Paroxysmal atrial fibrillation November 12, 2024 6:16pm Physical debility November 12, 2024 6:16p m Seizure disorder November 12, 2024 6:16p m Severe anxiety November 12, 2024 6:16p m Acute cystitis November 12, 2024 6:16p m Anticoagulant long-term use November 12 6:16pm Hypo-osmolality and hyponatremia November 6:16pm Bradycardia, sinus November 12, 2024 6:16p m Carotid artery bruit November 12, 2024 6:16 pm Chronic anemia November 12, 2024 6:16p m Grade II diastolic dysfunction November 12, 2024 6:16pm High cholesterol November 12, 2024 6:16p m HTN (hypertension) November 12, 2024 6:16p m Intracranial epidural hematoma November 12, 2024 6:16pm Mild aortic stenosis November 12, 2024 6:16 pm Presbycusis November 12, 2024 6:16p m Abnormal finding on urinalysis December 05, 2024 6:07pm Ambulatory dysfunction December 05, 2024 6: 07pm Falls December 05, 2024 6:07p m Generalized weakness December 05, 2024 6:07 pm History of subdural hematoma December 05, 6:07pm Hyponatremia December 05, 2024 6:07p m Ischemic cerebrovascular accident (CVA) December 05, 2024 6:07pm Seizure disorder December 05, 2024 6:07p m Anticoagulant long-term use December 05 6:07pm Intracranial epidural hematoma December 05, 2024 6:07pm Bilateral carotid bruits December 11, 2024 3:10pm Elevated LFTs December 11, 2024 3:10p m Heart murmur December 11, 2024 3:10p m Ischemic cerebrovascular accident (CVA) December 11, 2024 3:10pm jail current use of amiodarone December 11, 2024 3:10pm Paroxysmal atrial fibrillation December 11, 2024 3:10pm History of resection of meningioma December 20, 2024 8:52am Hyponatremia December 20, 2024 8:52 am Mild cognitive impairment December 20 8:52am Parkinson's disease December 20, 2024 8:52 am Seizure December 20, 2024 8:52 am Chronic subdural hematoma December 20 8:52am Impacted cerumen of both ears December 20, 2024 11:17am Bilateral carotid bruits January 18 3:27pm Elevated LFTs January 18, 2025 3: 27pm Heart murmur January 18, 2025 3: 27pm Ischemic cerebrovascular accident (CVA) January 18, 2025 3:27pm director long term care current use of amiodarone Augu st 2024 3:27pm Paroxysmal atrial fibrillation January 182024 3:27pm History of resection of meningioma Septe mber 2024 9:39am Mild cognitive impairment February 9:39am Chronic subdural hematoma February 9:39am Bilateral carotid bruits March 13 2:39pm Elevated LFTs March 13, 2025 2: 39pm Heart murmur March 13, 2025 2: 39pm Ischemic cerebrovascular accident (CVA) March 13, 2025 2:39pm director long term care current use of amiodarone Octo 2024 2:39pm Paroxysmal atrial fibrillation March 132024 2:39pm Reason for Referral Specialty Diagnoses / Procedures Referred By Martha t Referred To Contact Diagnoses Preop exam for internal medicine Skull mass Essential hypertension Hyperlipidemia, unspecified hyperlipidemia type Procedures PREPARE TO TRANSFUSE OR RED BLOOD CELLS Qian Randle MD [address] [facility] [address] [place] [address] Referral ID Status Reason Start Date Expiration Date V isits Requested Visits Authorized [id number] New Request 10/08/2022 11/02/2023 1 1 Specialty Diagnoses / Procedures Referred By Martha t Referred To Contact Diagnoses Skull mass Procedures MRI STEALTH BRAIN AL MRI BRAIN COMBO Shaye Weston, PRINCIPAL SCIENTIST-[employer]Y CLEANER [address] [place] [address] Referral ID Status Reason Start Date Expiration Date V isits Requested Visits Authorized [id number] New Request 10/08/2022 11/02/2023 1 1 Specialty Diagnoses / Procedures Referred By Martha t Referred To Contact Diagnoses Neuroendocrine cancer Cancer of cerebral meninges Procedures MRI BRAIN WITH PERFUSION AL MRI BRAIN Nimo Sher MD [address] [place] [address] Referral ID Status Reason Start Date Expiration Date V isits Requested Visits Authorized [id number] New Request 01/06/2023 01/31/2024 1 1 Specialty Diagnoses / Procedures Referred By Contac t Referred To Contact Diagnoses Neuroendocrine cancer Cancer of cerebral meninges Procedures NUC PET NEUROENDOCRINE CHG NUC THERAPY HYPERTHYROID SUBSEQUENT Nimo Bueno MD [address] [place] [address] Referral ID Status Reason Start Date Expiration Date V isits Requested Visits Authorized [id number] New Request 01/06/2023 01/31/2024 1 1 Specialty Diagnoses / Procedures Referred By Contac t Referred To Contact Diagnoses Cancer of cerebral meninges Procedures MRI BRAIN WITH PERFUSION AL MRI BRAIN COMBO Nimo Bueon MD [address] [place] [id number] Referral ID Status Reason Start Date Expiration Date V isits Requested Visits Authorized [id number] New Request 03/15/2023 04/08/2024 1 1 Specialty Diagnoses / Procedures Referred By Contac t Referred To Contact Diagnoses Cancer of cerebral meninges Procedures MRI BRAIN WITH PERFUSION AL MRI BRAIN COMBO Kristine Blue, PRINCIPAL SCIENTIST-DRY CLEANER [address] [facility] [address] [place] [address] Referral ID Status Reason Start Date Expiration Date V isits Requested Visits Authorized [id number] New Request 05/19/2023 06/12/2024 1 1 Referral ID Status Reason Start Date Expiration Date V isits Requested Visits Authorized [id number] New Request 08/23/2023 09/16/2024 1 1 Specialty Diagnoses / Procedures Referred By Contac t Referred To Contact Diagnoses Cancer of cerebral meninges Neuroendocrine cancer Procedures NUC PET NEUROENDOCRINE CHG PET IMAGING CT ATTENUATION SKULL BASE MID-THIGH Nimo Bueno MD [address] [place] [address] Referral ID Status Reason Start Date Expiration Date V isits Requested Visits Authorized [id number] New Request 11/29/2023 12/23/2024 1 1 Specialty Diagnoses / Procedures Referred By Contac t Referred To Contact Diagnoses Cancer of cerebral meninges Neuroendocrine cancer Procedures MRI BRAIN WITH PERFUSION CHG MRI BRAIN BRAIN STEM W/O W/CONTRAST MATERIAL Nimo Bueno MD [address] [place] [address] Referral ID Status Reason Start Date Expiration Date V isits Requested Visits Authorized [id number] New Request 11/29/2023 12/23/2024 1 1 Specialty Diagnoses / Procedures Referred By Contac t Referred To Contact Diagnoses Cancer of cerebral meninges Procedures MRI BRAIN WITH PERFUSION CHG MRI BRAIN BRAIN STEM W/O W/CONTRAST MATERIAL Kristine Blue APRN-DRY CLEANER [address] [facility] [address] [place] [address] Referral ID Status Reason Start Date Expiration Date V isits Requested Visits Authorized [id number] New Request 03/14/2024 04/08/2025 1 1 Summary [...] Status: Active Member Role Status Dates Dr. Mnoika Venegas MD Family Provider Active Dr. Monika Venegas MD Primary Care Provider Active Team Status: Inactive Member Role Status Dates Dr. Monika Venegas MD Primary Care Provider, Referrin g Provider Active Dr. Rock Downing MD Attending Provider Active Team Status: Inactive Member Role Status Dates Dr. Monika Venegas MD Primary Care Provider Active Dr. Rock Downing MD Attending Provider, Referring P harmeet Active Team Status: Active Member Role Status [...] ESQUIVEL Attending Provider, Referring Provide r Active Cathodic Protection Technician Relationship Specialty Start Date End Date Monika Venegas MD [address] [place] [phone] PCP - General Family Medicine 09/28/22 Cathodic Protection Technician Relationship Specialty Start Date End Date Monika Venegas MD [address] [place] [phone] PCP - General Family Medicine 09/28/22 Cathodic Protection Technician Relationship Specialty Start Date End Date Monika Venegas MD [address] [place] [phone] PCP - General Family Medicine 09/28/22 Cathodic Protection Technician Relationship Specialty Start Date End Date Monika Venegas MD [address] [place] [phone] PCP - General Family Medicine 09/28/22 Cathodic Protection Technician Relationship Specialty Start Date End Date Monika Venegas MD [address] [place] [address] PCP - General Family Medicine [...] Pr ovider, Attending Provider, Referring Provider Active Cathodic Protection Technician Relationship Specialty Start Date End Date Monika Venegas MD [address] [place] [phone] PCP - General Family Medicine 09/28/22 Cathodic Protection Technician Relationship Specialty Start Date End Date Monika Venegas MD [address] [place] [address] PCP - General Family Medicine 09/28/22 Cathodic Protection Technician Relationship Specialty Start Date End Date Monika Venegas MD [address] [place] [address] PCP - General Family Medicine 09/28/22 Team [...] Rivera MD Other Provider Active Jagdish Moncada NEWS ASSIGNMENT EDITOR, NEWS ASSIGNMENT EDITOR-C Other Provider Active Kourteny Beasley NEWS ASSIGNMENT EDITOR, NEWS ASSIGNMENT EDITOR-C Other Provider Active Lolly Alejandra PA, PA [...] Rivera MD Other Provider Active Jagdish Moncada NEWS ASSIGNMENT EDITOR, NEWS ASSIGNMENT EDITOR-C Other Provider Active Kourtney Beasley NEWS ASSIGNMENT EDITOR, NEWS ASSIGNMENT EDITOR-C Other Provider Active Lolly Alejandra PA, PA [...] Rivera MD Other Provider Active Jagdish Moncada NEWS ASSIGNMENT EDITOR, NEWS ASSIGNMENT EDITOR-C Other Provider Active Kourtney Beasley NEWS ASSIGNMENT EDITOR, NEWS ASSIGNMENT EDITOR-C Other Provider Active Lolly Alejandra PA, PA Other Provider Active Dr. Alix Hudson DO Attending Provider Active Cathodic Protection Technician Relationship Specialty Start Date End Date Monika Venegas MD [address] [place] [address] PCP - General Family Medicine 09/28/22 Cathodic Protection Technician Relationship Specialty Start Date End Date Monika Venegas MD [address] [place] [address] PCP - General Family Medicine 09/28/22 Cathodic Protection Technician Relationship Specialty Start Date End Date Monika Venegas MD [address] [place] [phone] PCP - General Family Medicine 09/28/22 Cathodic Protection Technician Relationship Specialty Start Date End Date Monika Venegas MD [address] [place] [address] PCP - General Family Medicine 09/28/22 Cathodic Protection Technician Relationship Specialty Start Date End Date Monika Venegas MD [address] [place] [phone] PCP - General Family Medicine 09/28/22 Cathodic Protection Technician Relationship Specialty Start Date End Date Monika Venegas MD [address] [place] [address] PCP - General Family Medicine 09/28/22 Cathodic Protection Technician Relationship Specialty Start Date End Date Monika Venegas MD [address] [place] [address] PCP - General Family Medicine 09/28/22 Cathodic Protection Technician Relationship Specialty Start Date End Date Monika Venegas MD [address] [place] [address] PCP - General Family Medicine 09/28/22 Cathodic Protection Technician Relationship Specialty Start Date End Date Monika Venegas MD [address] [place] [phone] PCP - General Family Medicine 09/28/22 Team Status: Inactive Member Role Status Dates Dr. Monika Venegas MD Primary Care Provider Active Lolly MCKENZIE, PA Attending Provider, Referr ing Provider Active Team Status: Active Member Role Status Dates Dr. Monika Venegas MD Primary Care Prov ider, Attending Provider, Referring Provider Active Cathodic Protection Technician Relationship Specialty Start Date End Date Monika Venegas MD [address] [place] [address] PCP - General Family Medicine 09/28/22 Cathodic Protection Technician Relationship Specialty Start Date End Date Monika Venegas MD [address] [place] [address] PCP - General Family Medicine 09/28/22 Cathodic Protection Technician Relationship Specialty Start Date End Date Monika Venegas MD [address] [place] [phone] PCP - General Family Medicine 09/28/22 Cathodic Protection Technician Relationship Specialty Start Date End Date Monika Venegas MD [address] [place] [phone] PCP - General Family Medicine 09/28/22 Team [...] September 27, 2024 End: September 27, 2024 Cathodic Protection Technician Relationship Specialty Start Date End Date Monika [...] November 15, 2024 Dr. Jo-Ann Arias DO Admit Provider Active Start: November 15, 2024 Dr. Jo-Ann Arias DO Attending Provider Act henrietta Start: November 15, 2024 Dr. Jo-Ann Arias DO Other Provider Active Start: November 15, 2024 Team Status: Active Member Role Status Dates Dr. Monika Venegas MD Primary Care Provider Active Start: November 16, 2024 Dr. Jo-Ann Arias DO Admit Provider Active Start: November 16, 2024 Dr. Jo-Ann Arias DO Attending Provider Act henrietta Start: November 16, 2024 Dr. Jo-Ann Arias DO Other Provider Active Start: November 16, 2024 Team Status: Active Member Role Status Dates Dr. Monika Venegas MD Primary Care Provider Active Start: November 19, 2024 Dr. Jo-Ann Arias DO Admit Provider Active Start: November 19, 2024 Dr. Jo-Ann Arias DO Attending Provider [...] November 22, 2024 Dr. Jo-Ann Arias , Admit Provider Active Start: November 22, 2024 Dr. Jo-Ann Arias , DO Attending Provider Act henrietta Start: November 22, 2024 Dr. Jo-Ann Arias , DO Other Provider Active Start: November 22, 2024 Team Status: Active Member Role Status Dates Dr. Monika Venegas MD Primary Care Provider Active Start: November 26, 2024 Dr. Jo-Ann Arias , Admit Provider Active Start: November 26, 2024 Dr. Jo-Ann Arias , DO Attending Provider Act henrietta Start: November 26, 2024 Dr. Jo-Ann Arias , DO Referring Provider Act henrietta Start: November 26, 2024 Dr. Jo-Ann Arias , DO Other Provider Active Start: November 26, 2024 Team Status: Active Member Role Status Dates Dr. Monika Venegas MD Primary Care Provider Active Start: November 27, 2024 Dr. Jo-Ann Arias DO Admit Provider Active Start: November 27, 2024 Dr. Jo-Ann Arias , DO Attending Provider Act henrietta Start: November 27, 2024 Dr. Jo-Ann Arias , Referring Provider Act henrietta Start: November 27, 2024 Dr. Jo-Ann Arias DO Other Provider Active Start: November 27, 2024 Dr. Chente Leung MD Other Provider Active Star t: November 27, 2024 Dr. Yifan Roque MD Other Provider Active Sta rt: November 27, 2024 Dr. Gagan Schulte MD Other Provider Active Start: November 27, 2024 Dr. Mattie Haynes , Other Provider Active Start: November 27, 2024 [...] November 15, 2024 Dr. Jo-Ann Arias DO Admit Provider Active Start: November 15, 2024 Dr. Jo-Ann Arias DO Attending Provider Act henrietta Start: November 15, 2024 Dr. Jo-Ann Arias DO Other Provider Active Start: November 15, 2024 Team Status: Active Member Role/Relationship Status Dates Dr. Monika Venegas MD Primary Care Provider Active Start: November 16, 2024 Dr. Jo-Ann Arias DO Admit Provider Active Start: November 16, [...] henrietta Start: 2024 Dr. Jo-Ann Arias , Other Provider Active Start: 2024 Team Status: [...] 26, 2024 Dr. Jo-Ann Arias , DO Referring Provider Act henrietta Start: November 26, 2024 Dr. Jo-Ann Arias , DO Other Provider Active Start: November 26, 2024 Team Status: Active Member Role/Relationship Status Dates Dr. Monika Venegas MD Primary Care Provider Active Start: November 27, 2024 Dr. Jo-Ann Arias , DO Admit Provider Active Start: November 27, 2024 Dr. Jo-Ann Arias , DO Attending [...] Provider Active Start: November 27, 2024 Dr. Deepka Byrd MD Other Provider Active Star t: [...] Referring Provider Active Start: December 03, 2024 Team Status: Active Member Role/Relationship Status [...] November 27, 2024 Dr. Jo-Ann Arias , DO Admit Provider Active Start: November 27, 2024 Dr. Jo-Ann Arias DO Attending Provider Act henrietta Start: November 27, 2024 Dr. Jo-Ann Arias , Other Provider Active Start: November 27, 2024 Dr. Chente Leung MD Other Provider Active Star t: November 27, 2024 Dr. Yifan Roque MD Other Provider Active Sta rt: November 27, 2024 Dr. Gagan Schulte MD Other Provider Active Start: November 27, 2024 Dr. Mattie Haynes , Other Provider Active Start: November 27, 2024 [...] Start: December 03, 2024 Dr. Darnell Gonzalez , Attending Provider Active Start: December 03, 2024 Dr. Darnell Gonzalez DO Referring Provider Active Start: December 03, 2024 Dr. Darnell Gonzalez DO Other Provider Active Start: December 03, 2024 Team Status: Active Member Role/Relationship Status Dates Dr. Monika Venegas MD Primary Care Provider Active Start: December 04, 2024 Dr. Hayden Sadler DO Emergency Provider Active Start: December 04, 2024 Dr. Darnell Gonzalez , DO Admit Provider Active Start: December 04, 2024 Dr. Darnell Gonzalez , DO Referring Provider Active Start: December 04, 2024 Dr. Darnell Gonzalez , DO Other Provider Active Start: December 04, 2024 Dr. Alix Hudson , DO Attending Provider Active S tart: December 04, 2024 Dr. Alix Hudson , DO Other Provider Active Start : December 04, 2024 Team Status: Active Member Role/Relationship Status Dates Dr. Monika Venegas MD Primary Care Provider Active Start: December 05, 2024 Dr. Hayden Sadler , Emergency Provider Active Start: December 05, 2024 Dr. Darnell Gonzalez , DO Admit Provider Active Start: December 05, 2024 Dr. Darnell Gonzalez , DO Referring Provider Active Start: December 05, 2024 Dr. Darnell Gonzalez , DO Other Provider Active Start: December 05, 2024 Dr. Alix Hudson , DO Attending Provider Active S tart: December 05, 2024 Dr. Alix Hudson , DO Other Provider Active Start : December 05, 2024 Dr. Gagan Schulte MD Other Provider Active Start: December 05, 2024 Team Status: Inactive Member Role/Relationship Status Dates Dr. Monika Venegas MD Primary Care Provider Active Start: December 05, 2024 End: December 06, 2024 Dr. Hayden Sadler , Emergency Provider Active Start: December 05, 2024 End: December 06, 2024 Dr. Darnell Gonzalez , DO Admit Provider Active Start: December 05, 2024 End: December 06, 2024 Dr. Darnell Gonzalez , Referring Provider Active Start: December 05, 2024 End: December 06, 2024 Dr. Darnell Gonzalez DO Other Provider Active Start: December 05, 2024 End: December 06, 2024 Dr. Alix Hudson , Attending Provider Active S tart: December 05, 2024 End: December 06, 2024 Dr. Gagan Schulte MD Other Provider Active Start: December 05, 2024 End: December 06, 2024 Team Status: Active Member Role/Relationship Status Dates Dr. Monika Venegas MD Primary Care Provider Active Start: December 06, 2024 Dr. Hayden Sadler , Emergency Provider Active Start: December 06, 2024 Dr. Darnell Gonzalez DO Admit Provider Active Start: December 06, 2024 DrEnoc Gonzalez DO Referring Provider Active Start: December 06, 2024 Dr. Darnell Gonzalez DO Other Provider Active Start: December 06, 2024 Dr. Alix Hudson , Attending Provider Active S tart: December 06, 2024 Dr. Alix Hudson , DO Other Provider Active Start : December 06, 2024 Dr. Gagan Schulte MD Other Provider Active Start: December 06, 2024 Team Status: Active Member Role/Relationship Status Dates Dr. Monika Venegas MD Primary Care Provider Active Start: December 10, 2024 Celeste KAISER MD Attending Provider Active Start: December 10, 2024 Team Status: Inactive Member Role/Relationship Status Dates Dr. Monika Venegas MD Primary Care Provider Active Start: December 11, 2024 End: December 11, 2024 Dr. Monika Venegas MD Referring Provider Active Start: December 11, 2024 End: December 11, 2024 Dr. Rock Conn MD Attending Provider Active Start: December 11, 2024 End: December 11, 2024 Team Status: Active Member Role/Relationship Status Dates Dr. Monika Venegas MD Primary Care Provider Active Start: December 03, 2024 Dr. Hayden Sadler , Emergency Provider Active Start: December 03, 2024 Dr. Darnell Gonzalez DO Admit Provider Active Start: December 03, 2024 Dr. Darnell Gonzalez DO Attending Provider Active Start: December 03, 2024 Dr. Darnell Gonzalez DO Other Provider Active Start: December 03, 2024 Team Status: Active Member Role/Relationship Status Dates Dr. Monika Venegas MD Primary Care Provider Active Start: December 04, 2024 Dr. Hayden Sadler DO Emergency Provider Active Start: December 04, 2024 Dr. Darnell Gonzalez DO Admit Provider Active Start: December 04, 2024 Dr. Darnell Gonzalez DO Other Provider Active Start: December 04, 2024 Dr. Alix Hudson , Attending Provider Active S tart: December 04, 2024 Dr. Alix Hudson , DO Other Provider Active Start : December 04, 2024 Team Status: Active Member Role/Relationship Status Dates Dr. Monika Venegas MD Primary Care Provider Active Start: December 05, 2024 Dr. Hayden Sadler DO Emergency Provider Active Start: December 05, 2024 Dr. Darnell Gonzalez , DO Admit Provider Active Start: December 05, 2024 Dr. Darnell Gonzalez , Other Provider Active Start: December 05, 2024 Dr. Alix Hudson , Attending Provider Active S tart: December 05, 2024 Dr. Alix Hudson DO Other Provider Active Start : December 05, 2024 Dr. Gagan Schulte MD Other Provider Active Start: December 05, 2024 Team Status: Active Member Role/Relationship Status Dates Dr. Monika Venegas MD Primary Care Provider Active Start: December 06, 2024 Dr. Hayden Sadler DO Emergency Provider Active Start: December 06, 2024 Dr. Darnell Gonzalez DO Admit Provider Active Start: December 06, 2024 Dr. Darnell Gonzalez DO Other Provider Active Start: December 06, 2024 Dr. Alix Hudson DO Attending Provider Active S tart: December 06, 2024 Dr. Alix Hudson , Other Provider Active Start : December 06, 2024 Dr. Gagan Schulte MD Other Provider Active Start: December 06, 2024 Team Status: Active Member Role/Relationship Status Dates Dr. Monika Venegas MD Primary Care Provider Active Start: December 17, 2024 Celeste KAISER MD Attending Provider Active Start: December 17, 2024 Team Status: Inactive Member Role/Relationship Status Dates Dr. Monika Venegas MD Primary Care Provider Active Start: December 20, 2024 End: December 20, 2024 Dr. Monika Venegas MD Referring Provider Active Start: December 20, 2024 End: December 20, 2024 Dr. Odilon Melchor MD Attending Provider Active Start: December 20, 2024 End: December 20, 2024 Team Status: Active Member Role/Relationship Status Dates Dr. Monika Venegas MD Primary Care Provider Active Start: December 20, 2024 Dr. Odilon Melchor MD Attending Provider Active Start: December 20, 2024 Dr. Odilon Melchor MD Referring Provider Active Start: December 20, 2024 Team Status: Inactive Member Role/Relationship Status Dates Dr. Monika Venegas MD Primary Care Provider Active Start: December 20, 2024 End: December 20, 2024 Dr. Monika Venegas MD Referring Provider Active Start: December 20, 2024 End: December 20, 2024 MAGALY Gutierrez Attending Provider Active Sta rt: December 20, 2024 End: December 20, 2024 Team Status: Inactive Member Role/Relationship Status Dates Dr. Monika Venegas MD Primary Care Provider Active Start: December 20, 2024 End: December 20, 2024 Dr. Odilon Melchor MD Attending Provider Active Start: December 20, 2024 End: December 20, 2024 Dr. Odilon Melchor MD Referring Provider Active Start: December 20, 2024 End: December 20, 2024 Team Status: Active Member Role/Relationship Status Dates Dr. Monika Venegas MD Primary Care Provider Active Start: December 24, 2024 Celeste KAISER MD Attending Provider Active Start: December 24, 2024 Team Status: Active Member Role/Relationship Status Dates Dr. Corey Kiran MD Primary Care Provider Active Team Status: Inactive Member Role/Relationship Status Dates Dr. Corey Kiran MD Primary Care Provider Active Start: December 11, 2024 End: December 11, 2024 Dr. Celeste Jacobo MD Attending Provider Active Start: December 11, 2024 End: December 11, 2024 Team Status: Inactive Member Role/Relationship Status Dates Dr. Monika Venegas MD Primary Care Provider Active Start: December 11, 2024 End: December 11, 2024 Dr. Monika Venegas MD Referring Provider Active Start: December 11, 2024 End: December 11, 2024 Dr. Rock Conn MD Attending Provider Active Start: December 11, 2024 End: December 11, 2024 Team Status: Active Member Role/Relationship Status Dates Dr. Monika Venegas MD Primary Care Provider Active Start: December 17, 2024 Celeste KAISER MD Attending Provider Active Start: December 17, 2024 Team Status: Inactive Member Role/Relationship Status Dates Dr. Monika Venegas MD Primary Care Provider Active Start: December 20, 2024 End: December 20, 2024 Dr. Monika Venegas MD Referring Provider Active Start: December 20, 2024 End: December 20, 2024 Dr. Odilon Melchor MD Attending Provider Active Start: December 20, 2024 End: December 20, 2024 Team Status: Inactive Member Role/Relationship Status Dates Dr. Monika Venegas MD Primary Care Provider Active Start: December 20, 2024 End: December 20, 2024 Dr. Odilon Melchor MD Attending Provider Active Start: December 20, 2024 End: December 20, 2024 Dr. Odilon Melchor MD Referring Provider Active Start: December 20, 2024 End: December 20, 2024 Team Status: Inactive Member Role/Relationship Status Dates Dr. Monika Venegas MD Primary Care Provider Active Start: December 20, 2024 End: December 20, 2024 Dr. Monika Venegas MD Referring Provider Active Start: December 20, 2024 End: December 20, 2024 Charles MCKENZIE PA Attending Provider Active Sta rt: December 20, 2024 End: December 20, 2024 Team Status: Active Member Role/Relationship Status Dates Dr. Monika Venegas MD Primary Care Provider Active Start: December 24, 2024 Celeste KAISER MD Attending Provider Active Start: December 24, 2024 Team Status: Inactive Member Role/Relationship Status Dates Dr. Corey Kiran MD Primary Care Provider Active Start: December 25, 2024 End: December 25, 2024 Cyndie Jacome NEWS ASSIGNMENT EDITOR, NEWS ASSIGNMENT EDITOR-C Attending Provider Active Start: December 25, 2024 End: December 25, 2024 Team Status: Active Member Role/Relationship Status Dates Dr. Monika Venegas MD Primary Care Provider Active Start: December 31, 2024 Celeste KAISER MD Attending Provider Active Start: December 31, 2024 Celeste KAISER MD Referring Provider Active Start: December 31, 2024 Team Status: Active Member Role/Relationship Status Dates Dr. Monika Venegas MD Primary Care Provider Active Start: January 07, 2025 Celeste KAISER MD Attending Provider Active Start: January 07, 2025 Team Status: Active Member Role/Relationship Status Dates Dr. Jagdish Noyola MD Primary Care Provider Active Start: January 14, 2025 Celeste KAISER MD Attending Provider Active Start: January 14, 2025 Team Status: Active Member Role/Relationship Status Dates Dr. Odilon Melchor MD Attending Provider Active Start: January 17, 2025 Dr. Odilon Melchor MD Referring Provider Active Start: January 17, 2025 Dr. Corey Kiran MD Primary Care Provider Active Start: January 17, 2025 Team Status: Inactive Member Role/Relationship Status Dates Dr. Corey Kiran MD Primary Care Provider Active Start: December 10, 2024 End: December 10, 2024 Cyndie Jacome NEWS ASSIGNMENT EDITOR, NEWS ASSIGNMENT EDITOR-C Attending Provider Active Start: December 10, 2024 End: December 10, 2024 Team Status: Inactive Member Role/Relationship Status Dates Dr. Corey Kiran MD Primary Care Provider Active Start: December 11, 2024 End: December 11, 2024 Dr. Celeste Jacobo MD Attending Provider Active Start: December 11, 2024 End: December 11, 2024 Team Status: Inactive Member Role/Relationship Status Dates Dr. Monika Venegas MD Primary Care Provider Active Start: December 11, 2024 End: December 11, 2024 Dr. Monika Venegas MD Referring Provider Active Start: December 11, 2024 End: December 11, 2024 Dr. Rock Conn MD Attending Provider Active Start: December 11, 2024 End: December 11, 2024 Team Status: Active Member Role/Relationship Status Dates Dr. Monika Venegas MD Primary Care Provider Active Start: December 17, 2024 Celeste KAISER MD Attending Provider Active Start: December 17, 2024 Team Status: Inactive Member Role/Relationship Status Dates Dr. Monika Venegas MD Primary Care Provider Active Start: December 20, 2024 End: December 20, 2024 Dr. Monika Venegas MD Referring Provider Active Start: December 20, 2024 End: December 20, 2024 Dr. Odilon Melchor MD Attending Provider Active Start: December 20, 2024 End: December 20, 2024 Team Status: Inactive Member Role/Relationship Status Dates Dr. Monika Venegas MD Primary Care Provider Active Start: December 20, 2024 End: December 20, 2024 Dr. Odilon Melchor MD Attending Provider Active Start: December 20, 2024 End: December 20, 2024 Dr. Odilon Melchor MD Referring Provider Active Start: December 20, 2024 End: December 20, 2024 Team Status: Inactive Member Role/Relationship Status Dates Dr. Monika Venegas MD Primary Care Provider Active Start: December 20, 2024 End: December 20, 2024 Dr. Monika Venegas MD Referring Provider Active Start: December 20, 2024 End: December 20, 2024 Charles Watkins PA PA Attending Provider Active Sta rt: December 20, 2024 End: December 20, 2024 Team Status: Active Member Role/Relationship Status Dates Dr. Monika Venegas MD Primary Care Provider Active Start: December 24, 2024 Celeste KAISER MD Attending Provider Active Start: December 24, 2024 Team Status: Inactive Member Role/Relationship Status Dates Dr. Corey Kiran MD Primary Care Provider Active Start: December 25, 2024 End: December 25, 2024 Cyndie Jacome NEWS ASSIGNMENT EDITOR, NEWS ASSIGNMENT EDITOR-C Attending Provider Active Start: December 25, 2024 End: December 25, 2024 Team Status: Active Member Role/Relationship Status Dates Dr. Monika Venegas MD Primary Care Provider Active Start: December 31, 2024 Celeste KAISER MD Attending Provider Active Start: December 31, 2024 Celeste KAISER MD Referring Provider Active Start: December 31, 2024 Team Status: Active Member Role/Relationship Status Dates Dr. Monika Venegas MD Primary Care Provider Active Start: January 07, 2025 Celeste KAISER MD Attending Provider Active Start: January 07, 2025 Team Status: Active Member Role/Relationship Status Dates Dr. Jagdish Noyola MD Primary Care Provider Active Start: January 14, 2025 Celeste KAISER MD Attending Provider Active Start: January 14, 2025 Team Status: Active Member Role/Relationship Status Dates Dr. Odilon Melchor MD Attending Provider Active Start: January 17, 2025 Dr. Odilon Melchor MD Referring Provider Active Start: January 17, 2025 Dr. Corey Kiran MD Primary Care Provider Active Start: January 17, 2025 Team Status: Inactive Member Role/Relationship Status Dates Dr. Monika Venegas MD Referring Provider Active Start: January 18, 2025 End: January 18, 2025 MAGALY Shahid Attending Provider Active St art: January 18, 2025 End: January 18, 2025 Dr. Corey Kiran MD Primary Care Provider Active Start: January 18, 2025 End: January 18, 2025 Team Status: Inactive Member Role/Relationship Status Dates Dr. Odilon Melchor MD Attending Provider Active Start: January 17, 2025 End: January 17, 2025 Dr. Odilon Melchor MD Referring Provider Active Start: January 17, 2025 End: January 17, 2025 Dr. Corey Kiran MD Primary Care Provider Active Start: January 17, 2025 End: January 17, 2025 Team Status: Inactive Member Role/Relationship Status Dates Dr. Corey Kiran MD Primary Care Provider Active Start: December 25, 2024 End: December 25, 2024 Cynide Jacome NP, NEWS ASSIGNMENT EDITOR-C Attending Provider Active Start: December 25, 2024 End: December 25, 2024 Team Status: Active Member Role/Relationship Status Dates Dr. Monika Venegas MD Primary Care Provider Active Start: December 31, 2024 Celeste KAISER MD Attending Provider Active Start: December 31, 2024 Celeste KAISER MD Referring Provider Active Start: December 31, 2024 Team Status: Active Member Role/Relationship Status Dates Dr. Monika Venegas MD Primary Care Provider Active Start: January 07, 2025 Celeste KAISER MD Attending Provider Active Start: January 07, 2025 Team Status: Active Member Role/Relationship Status Dates Dr. Jagdish Noyola MD Primary Care Provider Active Start: January 14, 2025 Celeste KAISER MD Attending Provider Active Start: January 14, 2025 Team Status: Active Member Role/Relationship Status Dates Dr. Odilon Melchor MD Attending Provider Active Start: January 17, 2025 Dr. Odilon Melchor MD Referring Provider Active Start: January 17, 2025 Dr. Corey Kiran MD Primary Care Provider Active Start: January 17, 2025 Team Status: Inactive Member Role/Relationship Status Dates [...] November 12, 2024 End: November 29, 2024 Sylvia Cabral NP-Aline Other Provider Active S tart: November 12, 2024 End: November 29, 2024 Team Status: Active Member Role/Relationship Status Dates Dr. Monika Venegas MD Primary Care Provider Active Start: November 13, 2024 Dr. Jo-Ann Arias , Admit Provider Active Start: November 13, 2024 Dr. Jo-Ann Arias , DO Attending Provider Act henrietta Start: November 13, 2024 Dr. Jo-Ann Arias DO Other Provider Active Start: November 13, 2024 Team Status: Active Member Role/Relationship Status Dates Dr. Monika Venegas MD Primary Care Provider Active Start: November 15, 2024 Dr. Jo-Ann Arias , Admit Provider Active Start: November 15, 2024 Dr. Jo-Ann Arias , DO Attending Provider Act henrietta Start: November 15, 2024 Dr. Jo-Ann Arias DO Other Provider Active Start: November 15, 2024 Team Status: Active Member Role/Relationship Status Dates Dr. Monika Venegas MD Primary Care Provider Active Start: November 16, 2024 Dr. Jo-Ann Arias DO Admit Provider Active Start: November 16, 2024 Dr. Jo-Ann Arias , DO Attending Provider Act henrietta Start: November 16, 2024 Dr. Jo-Ann Arias DO Other Provider Active Start: November 16, 2024 Team Status: Active Member Role/Relationship Status Dates Dr. Monika Venegas MD Primary Care Provider Active Start: November 19, 2024 Dr. Jo-Ann Arias DO Admit Provider Active Start: November 19, 2024 Dr. Jo-Ann Arias DO Attending Provider Act henrietta Start: November 19, 2024 Dr. Jo-Ann Arias , Other Provider Active Start: November 19, 2024 [...] Start: December 03, 2024 Dr. Hayden Sadler , DO Emergency Provider Active Start: December 03, 2024 Dr. Darnell Gonzalez , DO Admit Provider Active Start: December 03, 2024 Dr. Darnell Gonzalez , DO Attending Provider Active Start: December 03, 2024 Dr. Darnell Gonzalez , DO Other Provider Active Start: December 03, 2024 Team Status: Active Member Role/Relationship Status Dates Dr. Monika Venegas MD Primary Care Provider Active Start: December 04, 2024 Dr. Hayden Sadler , DO Emergency Provider Active Start: December 04, 2024 Dr. Darnell Gonzalez , DO Admit Provider Active Start: December 04, 2024 Dr. Darnell Gonzalez , DO Other Provider Active Start: December 04, 2024 Dr. Alix Hudson , DO Attending Provider Active S tart: December 04, 2024 Dr. Alix Hudson , DO Other Provider Active Start : December 04, 2024 Team Status: Active Member Role/Relationship Status Dates Dr. Monika Venegas MD Primary Care Provider Active Start: December 05, 2024 Dr. Hayden Sadler , DO Emergency Provider Active Start: December 05, 2024 Dr. Darnell Gonzalez , DO Admit Provider Active Start: December 05, 2024 Dr. Darnell Gonzalez , DO Other Provider Active Start: December 05, 2024 Dr. Alix Hudson , DO Attending Provider Active S tart: December 05, 2024 Dr. Alix Hudson , DO Other Provider Active Start : December 05, 2024 Dr. Gagan Schulte MD Other Provider Active Start: December 05, 2024 Team Status: Inactive Member Role/Relationship Status Dates Dr. Monika Venegas MD Primary Care Provider Active Start: December 05, 2024 End: December 06, 2024 Dr. Hayden Sadler , DO Emergency Provider Active Start: December 05, 2024 End: December 06, 2024 Dr. Darnell Gonzalez , DO Admit Provider Active Start: December 05, 2024 End: December 06, 2024 Dr. Darnell Gonzalez , DO Referring Provider Active Start: December 05, 2024 End: December 06, 2024 Dr. Darnell Gonzalez , DO Other Provider Active Start: December 05, 2024 End: December 06, 2024 Dr. Alix Tristan , DO Attending Provider Active S tart: December 05, 2024 End: December 06, 2024 Dr. Gagan Schulte MD Other Provider Active Start: December 05, 2024 End: December 06, 2024 Team Status: Active Member Role/Relationship Status Dates Dr. Monika Venegas MD Primary Care Provider Active Start: December 06, 2024 Dr. Hayden Sadler , Emergency Provider Active Start: December 06, 2024 Dr. Darnell Gonzalez , Admit Provider Active Start: December 06, 2024 Dr. Darnell Gonzalez DO Other Provider Active Start: December 06, 2024 Dr. Alix Hudson DO Attending Provider Active S tart: December 06, 2024 Dr. Alix Hudson , Other Provider Active Start : December 06, 2024 Dr. Gagan Schulte MD Other Provider Active Start: December 06, 2024 Team Status: Active Member Role/Relationship Status Dates Dr. Monika Venegas MD Primary Care Provider Active Start: December 10, 2024 Celeste KAISER MD Attending Provider Active Start: December 10, 2024 Team Status: Inactive Member Role/Relationship Status Dates Dr. Corey Kiran MD Primary Care Provider Active Start: December 10, 2024 End: December 10, 2024 Cyndie Jacome NEWS ASSIGNMENT EDITOR, NEWS ASSIGNMENT EDITOR-C Attending Provider Active Start: December 10, 2024 End: December 10, 2024 Team Status: Inactive Member Role/Relationship Status Dates Dr. Odilon Melchor MD Attending Provider Active Start: January 17, 2025 End: January 17, 2025 Dr. Odilon Melchor MD Referring Provider Active Start: January 17, 2025 End: January 17, 2025 Dr. Corey Kiran MD Primary Care Provider Active Start: January 17, 2025 End: January 17, 2025 Team Status: Inactive Member Role/Relationship Status Dates Dr. Monika Venegas MD Referring Provider Active Start: January 18, 2025 End: January 18, 2025 MAGALY Shahid Attending Provider Active St art: January 18, 2025 End: January 18, 2025 Dr. Corey Kiran MD Primary Care Provider Active Start: January 18, 2025 End: January 18, 2025 Team Status: Inactive Member Role/Relationship Status Dates Dr. Corey Kiran MD Primary Care Provider Active Start: January 31, 2025 End: January 31, 2025 Dr. Corey Kiran MD Referring Provider Active St art: January 31, 2025 End: January 31, 2025 MAGALY Shahid Attending Provider Active St art: January 31, 2025 End: January 31, 2025 Team Status: Active Member Role/Relationship Status Dates Dr. Corey Kiran MD Primary care physician Active Team Status: Inactive Member Role/Relationship Status Dates Dr. Monika Venegas MD Primary care physician Active Start: November 07, 2024 End: November 07, 2024 Dr. Dallas Anand MD Attending physician Active St art: November 07, 2024 End: November 07, 2024 Dr. Dallas Anand MD Emergency Department Physician Acti ve Start: November 07, 2024 End: November 07, 2024 Team Status: Inactive Member Role/Relationship Status Dates Dr. Monika Venegas MD Primary care physician Active Start: November 12, 2024 End: November 29, 2024 Dr. Jo-Ann Arias DO Admitting physician Ac tive Start: November 12, 2024 End: November 29, 2024 Dr. Jo-Ann Arias DO Attending physician Ac tive Start: November 12, 2024 End: November 29, 2024 Dr. Jo-Ann Arias DO Referring Provider Act henrietta Start: November 12, 2024 End: November 29, 2024 Dr. Chente Leung MD Nurse Practitioner Active Start: November 12, 2024 End: November 29, 2024 Dr. Yifan Roque MD Nurse Practitioner Active Start: November 12, 2024 End: November 29, 2024 Dr. Gagan Schulte MD Nurse Practitioner Active Start: November 12, 2024 End: November 29, 2024 Dr. Mattie Haynes DO Nurse Practitioner Active Start: November 12, 2024 End: November 29, 2024 Dr. Christy Baer MD Nurse Practitioner Act henrietta Start: November 12, 2024 End: November 29, 2024 Dr. Argentina Schmitz MD Nurse Practitioner Active Start: November 12, 2024 End: November 29, 2024 Dr. Sanjuana Flores MD Nurse Practitioner Active Start: November 12, 2024 End: November 29, 2024 Dr. Deepak Byrd MD Nurse Practitioner Active Start: November 12, 2024 End: November 29, 2024 Dr. Gibson Yang MD Nurse Practitioner Active S tart: November 12, 2024 End: November 29, 2024 TYRA Bragg Nurse Practitioner Active Start: November 12, 2024 End: November 29, 2024 Team Status: Active Member Role/Relationship Status Dates Dr. Monika Venegas MD Primary care physician Active Start: November 13, 2024 Dr. Jo-Ann Arias , DO Admitting physician Ac tive Start: November 13, 2024 Dr. Jo-Ann Arias , DO Attending physician Ac tive Start: November 13, 2024 Dr. Jo-Ann Arias , DO Nurse Practitioner Act henrietta Start: November 13, 2024 Team Status: Active Member Role/Relationship Status Dates Dr. Monika Vneegas MD Primary care physician Active Start: November 15, 2024 Dr. Jo-Ann Arias , DO Admitting physician Ac tive Start: November 15, 2024 Dr. Jo-Ann Arias , DO Attending physician Ac tive Start: November 15, 2024 Dr. Jo-Ann Arias , DO Nurse Practitioner Act henrietta Start: November 15, 2024 Team Status: Active Member Role/Relationship Status Dates Dr. Monika Venegas MD Primary care physician Active Start: November 16, 2024 Dr. Jo-Ann Arias , DO Admitting physician Ac tive Start: November 16, 2024 Dr. Jo-Ann Arias , DO Attending physician Ac tive Start: November 16, 2024 Dr. Jo-Ann Arias , DO Nurse Practitioner Act henrietta Start: November 16, 2024 Team Status: Active Member Role/Relationship Status Dates Dr. Monika Venegas MD Primary care physician Active Start: November 19, 2024 Dr. Jo-Ann Arias , DO Admitting physician Ac tive Start: November 19, 2024 Dr. Jo-Ann Arias , DO Attending physician Ac tive Start: November 19, 2024 Dr. Jo-Ann Arias , DO Nurse Practitioner Act henrietta Start: November 19, 2024 Team Status: Active Member Role/Relationship Status Dates Dr. Monika Venegas MD Primary care physician Active Start: 2024 Dr. Jo-Ann Arias , DO Admitting physician Ac tive Start: 2024 Dr. Jo-Ann Arias , DO Attending physician Ac tive Start: 2024 Dr. Jo-Ann Arias , DO Nurse Practitioner Act henrietta Start: 2024 Team Status: Active Member Role/Relationship Status Dates Dr. Monika Venegas MD Primary care physician Active Start: November 22, 2024 Dr. Jo-Ann Arias , DO Admitting physician Ac tive Start: November 22, 2024 Dr. Jo-Ann Arias , DO Attending physician Ac tive Start: November 22, 2024 Dr. Jo-Ann Arias , DO Nurse Practitioner Act henri[place] Start: November 22, 2024 Team Status: Active Member Role/Relationship Status Dates Dr. Monika Venegas MD Primary care physician Active Start: November 26, 2024 Dr. Jo-Ann Arias , DO Admitting physician Ac tive Start: November 26, 2024 Dr. Jo-Ann Arias , DO Attending physician Ac tive Start: November 26, 2024 Dr. Jo-Ann Arias , DO Nurse Practitioner Act henrietta Start: November 26, 2024 Team Status: Active Member Role/Relationship Status Dates Dr. Monika Venegas MD Primary care physician Active Start: November 27, 2024 Dr. Jo-Ann Arias , DO Admitting physician Ac tive Start: November 27, 2024 Dr. Jo-Ann Arias , DO Attending physician Ac tive Start: November 27, 2024 Dr. Jo-Ann Arias , DO Nurse Practitioner Act henrietta Start: November 27, 2024 Dr. Chente Leung MD Nurse Practitioner Active Start: November 27, 2024 Dr. Yifan Roque MD Nurse Practitioner Active Start: November 27, 2024 Dr. Gagan Schulte MD Nurse Practitioner Active Start: November 27, 2024 Dr. Mattie Haynes , Nurse Practitioner Active Start: November 27, 2024 Dr. Christy Baer MD Nurse Practitioner Act henrietta Start: November 27, 2024 Dr. Argentina Schmitz MD Nurse Practitioner Active Start: November 27, 2024 Dr. Sanjuana Flores MD Nurse Practitioner Active Start: November 27, 2024 Dr. Deepak Byrd MD Nurse Practitioner Active Start: November 27, 2024 Dr. Gibson Yang MD Nurse Practitioner Active S tart: November 27, 2024 TYRA Bragg Nurse Practitioner Active Start: November 27, 2024 Team Status: Active Member Role/Relationship Status Dates Dr. Monika Venegas MD Primary care physician Active Start: December 03, 2024 Dr. Hayden Sadler , DO Emergency Department Physician A ctive Start: December 03, 2024 Dr. Darnell Gonzalez , DO Admitting physician Active Start: December 03, 2024 Dr. Darnell Gonzalez , DO Attending physician Active Start: December 03, 2024 Dr. Darnell Gonzalez , DO Nurse Practitioner Active Start: December 03, 2024 Team Status: Active Member Role/Relationship Status Dates Dr. Monika Venegas MD Primary care physician Active Start: December 04, 2024 Dr. Hayden Sadler , DO Emergency Department Physician A ctive Start: December 04, 2024 Dr. Darnell Gonzalez , DO Admitting physician Active Start: December 04, 2024 Dr. Darnell Gonzalez , DO Nurse Practitioner Active Start: December 04, 2024 Dr. Alix Hudson , DO Attending physician Active Start: December 04, 2024 Dr. Alix Hudson , DO Nurse Practitioner Active S tart: December 04, 2024 Team Status: Active Member Role/Relationship Status Dates Dr. Monika Venegas MD Primary care physician Active Start: December 05, 2024 Dr. Hayden Sadler , DO Emergency Departme nt Physician Active Start: December 05, 2024 Dr. Darnell Gonzalez , DO Admitting physician Active Start: December 05, 2024 Dr. Darnell Gonzalez , DO Nurse Practitioner Active Start: December 05, 2024 Dr. Alix Hudson , DO Attending physician Active Start: December 05, 2024 Dr. Alix Hudson , DO Nurse Practitioner Active S tart: December 05, 2024 Dr. Gagan Schulte MD Nurse Practitioner Active Start: December 05, 2024 Team Status: Inactive Member Role/Relationship Status Dates Dr. Monika Venegas MD Primary care physician Active Start: December 05, 2024 End: December 06, 2024 Dr. Hayden Sadler , DO Emergency Departme nt Physician Active Start: December 05, 2024 End: December 06, 2024 Dr. Darnell Gonzalez , DO Admitting physician Active Start: December 05, 2024 End: December 06, 2024 Dr. Darnell Gonazlez , DO Referring Provider Active Start: December 05, 2024 End: December 06, 2024 Dr. Darnell Gonzlaez , DO Nurse Practitioner Active Start: December 05, 2024 End: December 06, 2024 Dr. Alix Hudson , DO Attending physician Active Start: December 05, 2024 End: December 06, 2024 Dr. Gagan Schulte MD Nurse Practitioner Active Start: December 05, 2024 End: December 06, 2024 Team Status: Active Member Role/Relationship Status Dates Dr. Monika Venegas MD Primary care physician Active Start: December 06, 2024 Dr. Hayden Sadler , DO Emergency Departme nt Physician Active Start: December 06, 2024 Dr. Darnell Gonzalez , DO Admitting physician Active Start: December 06, 2024 Dr. Darnell Gonzalez , DO Nurse Practitioner Active Start: December 06, 2024 Dr. Alix Hudson , Attending physician Active Start: December 06, 2024 Dr. Alix Hudson , DO Nurse Practitioner Active S tart: December 06, 2024 Dr. Gagan Schulte MD Nurse Practitioner Active Start: December 06, 2024 Team Status: Active Member Role/Relationship Status Dates Dr. Monika Venegas MD Primary care physician Active Start: December 10, 2024 Celeste KAISER MD Attending physician Active Start: December 10, 2024 Team Status: Inactive Member Role/Relationship Status Dates Dr. Corey Kiran MD Primary care physician Active Start: December 10, 2024 End: December 10, 2024 Cyndie Jacome NEWS ASSIGNMENT EDITOR, NEWS ASSIGNMENT EDITOR-C Attending physician Active Start: December 10, 2024 End: December 10, 2024 Team Status: Inactive Member Role/Relationship Status Dates Dr. Corey Kiran MD Primary care physician Active Start: December 11, 2024 End: December 11, 2024 Dr. Celeste Jacobo MD Attending physician Active Start: December 11, 2024 End: December 11, 2024 Team Status: Inactive Member Role/Relationship Status Dates Dr. Monika Venegas MD Primary care physician Active Start: December 11, 2024 End: December 11, 2024 Dr. Monika Venegas MD Referring Provider Active Start: December 11, 2024 End: December 11, 2024 Dr. Rock Conn MD Attending physician Active Start: December 11, 2024 End: December 11, 2024 Team Status: Active Member Role/Relationship Status Dates Dr. Monika Venegas MD Primary care physician Active Start: December 17, 2024 Celeste KAISER MD Attending physician Active Start: December 17, 2024 Team Status: Inactive Member Role/Relationship Status Dates Dr. Monika Venegas MD Primary care physician Active Start: December 20, 2024 End: December 20, 2024 Dr. Monika Venegas MD Referring Provider Active Start: December 20, 2024 End: December 20, 2024 Dr. Odilon Melchor MD Attending physician Active Start: December 20, 2024 End: December 20, 2024 Team Status: Inactive Member Role/Relationship Status Dates Dr. Monika Venegas MD Primary care physician Active Start: December 20, 2024 End: December 20, 2024 Dr. Odilon Melchor MD Attending physician Active Start: December 20, 2024 End: December 20, 2024 Dr. Odilon Melchor MD Referring Provider Active Start: December 20, 2024 End: December 20, 2024 Team Status: Inactive Member Role/Relationship Status Dates Dr. Monika Venegas MD Primary care physician Active Start: December 20, 2024 End: December 20, 2024 Dr. Monika Venegas MD Referring Provider Active Start: December 20, 2024 End: December 20, 2024 Charles MCKENZIE PA Attending physician Active St art: December 20, 2024 End: December 20, 2024 Team Status: Active Member Role/Relationship Status Dates Dr. Monika Venegas MD Primary care physician Active Start: December 24, 2024 Celeste KAISER MD Attending physician Active Start: December 24, 2024 Team Status: Inactive Member Role/Relationship Status Dates Dr. Corey Kiran MD Primary care physician Active Start: December 25, 2024 End: December 25, 2024 Cyndie Jacome NEWS ASSIGNMENT EDITOR, NEWS ASSIGNMENT EDITOR-C Attending physician Active Start: December 25, 2024 End: December 25, 2024 Team Status: Active Member Role/Relationship Status Dates Dr. Monika Venegas MD Primary care physician Active Start: December 31, 2024 Celeste KAISER MD Attending physician Active Start: December 31, 2024 Celeste KAISER MD Referring Provider Active Start: December 31, 2024 Team Status: Active Member Role/Relationship Status Dates Dr. Monika Venegas MD Primary care physician Active Start: January 07, 2025 Celeste KAISER MD Attending physician Active Start: January 07, 2025 Team Status: Active Member Role/Relationship Status Dates Dr. Jagdish Noyola MD Primary care physician Active Start: January 14, 2025 Celeste KAISER MD Attending physician Active Start: January 14, 2025 Team Status: Inactive Member Role/Relationship Status Dates Dr. Odilon Melchor MD Attending physician Active Start: January 17, 2025 End: January 17, 2025 Dr. Odilon Melchor MD Referring Provider Active Start: January 17, 2025 End: January 17, 2025 Dr. Corey Kiran MD Primary care physician Active Start: January 17, 2025 End: January 17, 2025 Team Status: Inactive Member Role/Relationship Status Dates Dr. Monika Venegas MD Referring Provider Active Start: January 18, 2025 End: January 18, 2025 MAGALY Shahid Attending physician Active S tart: January 18, 2025 End: January 18, 2025 Dr. Corey Kiran MD Primary care physician Active Start: January 18, 2025 End: January 18, 2025 Team Status: Inactive Member Role/Relationship Status Dates Dr. Corey Kiran MD Primary care physician Active Start: January 31, 2025 End: January 31, 2025 Dr. Corey Kiran MD Referring Provider Active St art: January 31, 2025 End: January 31, 2025 MAGALY Shahid Attending physician Active S tart: January 31, 2025 End: January 31, 2025 Team Status: Inactive Member Role/Relationship Status Dates Dr. Monika Venegas MD Referring Provider Active Start: February 26, 2025 End: February 26, 2025 Dr. Odilon Melchor MD Attending physician Active Start: February 26, 2025 End: February 26, 2025 Dr. Corey Kiran MD Primary care physician Active Start: February 26, 2025 End: February 26, 2025 Team Status: Active Member Role/Relationship Status Dates Dr. Corey Kiran MD Primary care physician Active Start: February 26, 2025 Dr. Gagan Schulte MD Attending physician Active Start: February 26, 2025 Dr. Gagan Schulte MD Referring Provider Active Start: February 26, 2025 Team Status: Inactive Member Role/Relationship Status Dates Dr. Corey Kiran MD Primary care physician Active Start: February 26, 2025 End: February 26, 2025 Dr. Gagan Schulte MD Attending physician Active Start: February 26, 2025 End: February 26, 2025 Dr. Gagan Schulte MD Referring Provider Active Start: February 26, 2025 End: February 26, 2025 Team Status: Inactive Member Role/Relationship Status Dates Dr. Monika Venegas MD Primary care physician Active Start: November 12, 2024 End: November 29, 2024 Dr. Jo-Ann Arias DO Admitting physician Ac tive Start: November 12, 2024 End: November 29, 2024 Dr. Jo-Ann Arias DO Attending physician Ac tive Start: November 12, 2024 End: November 29, 2024 Dr. Jo-Ann Arias DO Referring Provider Act henrietta Start: November 12, 2024 End: November 29, 2024 Dr. Chente Leung MD Nurse Practitioner Active Start: November 12, 2024 End: November 29, 2024 Dr. Yifan Roque MD Nurse Practitioner Active Start: November 12, 2024 End: November 29, 2024 Dr. Gagan Schulte MD Nurse Practitioner Active Start: November 12, 2024 End: November 29, 2024 Dr. Mattie Haynes DO Nurse Practitioner Active Start: November 12, 2024 End: November 29, 2024 Dr. Christy Baer MD Nurse Practitioner Act henrietta Start: November 12, 2024 End: November 29, 2024 Dr. Argentina Schmitz MD Nurse Practitioner Active Start: November 12, 2024 End: November 29, 2024 Dr. Sanjuana Flores MD Nurse Practitioner Active Start: November 12, 2024 End: November 29, 2024 Dr. Deepak Byrd MD Nurse Practitioner Active Start: November 12, 2024 End: November 29, 2024 Dr. Gibson Yang MD Nurse Practitioner Active S tart: November 12, 2024 End: November 29, 2024 TYRA Bragg Nurse Practitioner Active Start: November 12, 2024 End: November 29, 2024 Team Status: Active Member Role/Relationship Status Dates Dr. Monika Venegas MD Primary care physician Active Start: November 13, 2024 Dr. Jo-Ann Arias , DO Admitting physician Ac tive Start: November 13, 2024 Dr. Jo-Ann Arias , DO Attending physician Ac tive Start: November 13, 2024 Dr. Jo-Ann Arias , DO Nurse Practitioner Act henrietta Start: November 13, 2024 Team Status: Active Member Role/Relationship Status Dates Dr. Monika Venegas MD Primary care physician Active Start: November 15, 2024 Dr. Jo-Ann Arias , DO Admitting physician Ac tive Start: November 15, 2024 Dr. Jo-Ann Arias , DO Attending physician Ac tive Start: November 15, 2024 Dr. Jo-Ann Arias , DO Nurse Practitioner Act henrietta Start: November 15, 2024 Team Status: Active Member Role/Relationship Status Dates Dr. Monika Venegas MD Primary care physician Active Start: November 16, 2024 Dr. Jo-Ann Arias , DO Admitting physician Ac tive Start: November 16, 2024 Dr. Jo-Ann Arias , DO Attending physician Ac tive Start: November 16, 2024 Dr. Jo-Ann Arias , DO Nurse Practitioner Act henri[place] Start: November 16, 2024 Team Status: Active Member Role/Relationship Status Dates Dr. Monika Venegas MD Primary care physician Active Start: November 19, 2024 Dr. Jo-Ann Arias , DO Admitting physician Ac tive Start: November 19, 2024 Dr. Jo-Ann Arias , DO Attending physician Ac tive Start: November 19, 2024 Dr. Jo-Ann Arias , DO Nurse Practitioner Act henri[place] Start: November 19, 2024 Team Status: Active Member Role/Relationship Status Dates Dr. Monika Venegas MD Primary care physician Active Start: 2024 Dr. Jo-Ann Arias , DO Admitting physician Ac tive Start: 2024 Dr. Jo-Ann Arias , DO Attending physician Ac tive Start: 2024 Dr. Jo-Ann Arias , DO Nurse Practitioner Act [place] Start: 2024 Team Status: Active Member Role/Relationship Status Dates Dr. Monika Venegas MD Primary care physician Active Start: November 22, 2024 Dr. Jo-Ann Arias , DO Admitting physician Ac tive Start: November 22, 2024 Dr. Jo-Ann Arias , DO Attending physician Ac tive Start: November 22, 2024 Dr. Jo-Ann Arias , DO Nurse Practitioner Act [place] Start: November 22, 2024 Team Status: Active Member Role/Relationship Status Dates Dr. Monika Venegas MD Primary care physician Active Start: November 26, 2024 Dr. Jo-Ann Arias , DO Admitting physician Ac tive Start: November 26, 2024 Dr. Jo-Ann Arias , DO Attending physician Ac tive Start: November 26, 2024 Dr. Jo-Ann Arias , DO Nurse Practitioner Act [place] Start: November 26, 2024 Team Status: Active Member Role/Relationship Status Dates Dr. Monika Venegas MD Primary care physician Active Start: November 27, 2024 Dr. Jo-Ann Arias , DO Admitting physician Ac tive Start: November 27, 2024 Dr. Jo-Ann Arias , DO Attending physician Ac tive Start: November 27, 2024 Dr. Jo-Ann Arias , DO Nurse Practitioner Act [place] Start: November 27, 2024 Dr. Chente Leung MD Nurse Practitioner Active Start: November 27, 2024 Dr. Yifan Roque MD Nurse Practitioner Active Start: November 27, 2024 Dr. Gagan Schulte MD Nurse Practitioner Active Start: November 27, 2024 Dr. Mattie Haynes , DO Nurse Practitioner Active Start: November 27, 2024 Dr. Christy Baer MD Nurse Practitioner Act [place] Start: November 27, 2024 Dr. Argentina Schmitz MD Nurse Practitioner Active Start: November 27, 2024 Dr. Sanjuana Flores MD Nurse Practitioner Active Start: November 27, 2024 Dr. Deepak Byrd MD Nurse Practitioner Active Start: November 27, 2024 Dr. Gibson Yang MD Nurse Practitioner Active S tart: November 27, 2024 TYRA Bragg Nurse Practitioner Active Start: November 27, 2024 Team Status: Active Member Role/Relationship Status Dates Dr. Monika Venegas MD Primary care physician Active Start: December 03, 2024 Dr. Hayden Sadler , DO Emergency Department Physician A ctive Start: December 03, 2024 Dr. Darnell Gonzalez , DO Admitting physician Active Start: December 03, 2024 Dr. Darnell Gonzalez , DO Attending physician Active Start: December 03, 2024 Dr. Darnell Gonzalez , DO Nurse Practitioner Active Start: December 03, 2024 Team Status: Active Member Role/Relationship Status Dates Dr. Monika Venegas MD Primary care physician Active Start: December 04, 2024 Dr. Hayden Sadler , DO Emergency Department Physician A ctive Start: December 04, 2024 Dr. Darnell Gonzalez , DO Admitting physician Active Start: December 04, 2024 Dr. Darnell Gonzalez , DO Nurse Practitioner Active Start: December 04, 2024 Dr. Alix Hudson , DO Attending physician Active Start: December 04, 2024 Dr. Alix Hudson , DO Nurse Practitioner Active S tart: December 04, 2024 Team Status: Active Member Role/Relationship Status Dates Dr. Monika Venegas MD Primary care physician Active Start: December 05, 2024 Dr. Hayden Sadler , DO Emergency Departme nt Physician Active Start: December 05, 2024 Dr. Darnell Gonzalez , DO Admitting physician Active Start: December 05, 2024 Dr. Darnell Gonzalez , DO Nurse Practitioner Active Start: December 05, 2024 Dr. Alix Hudson , DO Attending physician Active Start: December 05, 2024 Dr. Alix Hudson , DO Nurse Practitioner Active S tart: December 05, 2024 Dr. Gagan Schulte MD Nurse Practitioner Active Start: December 05, 2024 Team Status: Inactive Member Role/Relationship Status Dates Dr. Monika Venegas MD Primary care physician Active Start: December 05, 2024 End: December 06, 2024 Dr. Hayden Sadler , DO Emergency Departme nt Physician Active Start: December 05, 2024 End: December 06, 2024 Dr. Darnell Gonzalez , DO Admitting physician Active Start: December 05, 2024 End: December 06, 2024 Dr. Darnell Gonzalez , DO Referring Provider Active Start: December 05, 2024 End: December 06, 2024 Dr. Darnell Gonzalez , DO Nurse Practitioner Active Start: December 05, 2024 End: December 06, 2024 Dr. Alix Hudson , DO Attending physician Active Start: December 05, 2024 End: December 06, 2024 Dr. Gagan Schulte MD Nurse Practitioner Active Start: December 05, 2024 End: December 06, 2024 Team Status: Active Member Role/Relationship Status Dates Dr. Monika Venegas MD Primary care physician Active Start: December 06, 2024 Dr. Hayden Sadler , DO Emergency Departme nt Physician Active Start: December 06, 2024 Dr. Darnell Gonzalez , DO Admitting physician Active Start: December 06, 2024 Dr. Darnell Gonzalez , DO Nurse Practitioner Active Start: December 06, 2024 Dr. Alix Hudson , DO Attending physician Active Start: December 06, 2024 Dr. Alix Hudson , DO Nurse Practitioner Active S tart: December 06, 2024 Dr. Gagan Schulte MD Nurse Practitioner Active Start: December 06, 2024 Team Status: Active Member Role/Relationship Status Dates Dr. Monika Venegas MD Primary care physician Active Start: December 10, 2024 Celeste KAISER MD Attending physician Active Start: December 10, 2024 Team Status: Inactive Member Role/Relationship Status Dates Dr. Corey Kiran MD Primary care physician Active Start: December 10, 2024 End: December 10, 2024 Cyndie Jacome NEWS ASSIGNMENT EDITOR, NEWS ASSIGNMENT EDITOR-C Attending physician Active Start: December 10, 2024 End: December 10, 2024 Team Status: Inactive Member Role/Relationship Status Dates Dr. Corey Kiran MD Primary care physician Active Start: December 11, 2024 End: December 11, 2024 Dr. Celeste Jacobo MD Attending physician Active Start: December 11, 2024 End: December 11, 2024 Team Status: Inactive Member Role/Relationship Status Dates Dr. Monika Venegas MD Primary care physician Active Start: December 11, 2024 End: December 11, 2024 Dr. Monika Venegas MD Referring Provider Active Start: December 11, 2024 End: December 11, 2024 Dr. Rock Conn MD Attending physician Active Start: December 11, 2024 End: December 11, 2024 Team Status: Active Member Role/Relationship Status Dates Dr. Monika Venegas MD Primary care physician Active Start: December 17, 2024 Celeste KAISER MD Attending physician Active Start: December 17, 2024 Team Status: Inactive Member Role/Relationship Status Dates Dr. Monika Venegas MD Primary care physician Active Start: December 20, 2024 End: December 20, 2024 Dr. Monika Venegas MD Referring Provider Active Start: December 20, 2024 End: December 20, 2024 Dr. Odilon Melchor MD Attending physician Active Start: December 20, 2024 End: December 20, 2024 Team Status: Inactive Member Role/Relationship Status Dates Dr. Monika Venegas MD Primary care physician Active Start: December 20, 2024 End: December 20, 2024 Dr. Odilon Melchor MD Attending physician Active Start: December 20, 2024 End: December 20, 2024 Dr. Odilon Melchor MD Referring Provider Active Start: December 20, 2024 End: December 20, 2024 Team Status: Inactive Member Role/Relationship Status Dates Dr. Monika Venegas MD Primary care physician Active Start: December 20, 2024 End: December 20, 2024 Dr. Monika Venegas MD Referring Provider Active Start: December 20, 2024 End: December 20, 2024 MAGALY Gutierrez Attending physician Active St art: December 20, 2024 End: December 20, 2024 Team Status: Active Member Role/Relationship Status Dates Dr. Monika Venegas MD Primary care physician Active Start: December 24, 2024 Celeste KAISER MD Attending physician Active Start: December 24, 2024 Team Status: Inactive Member Role/Relationship Status Dates Dr. Corey Kiran MD Primary care physician Active Start: December 25, 2024 End: December 25, 2024 Cyndie Jacome NEWS ASSIGNMENT EDITOR, NEWS ASSIGNMENT EDITOR-C Attending physician Active Start: December 25, 2024 End: December 25, 2024 Team Status: Active Member Role/Relationship Status Dates Dr. Monika Venegas MD Primary care physician Active Start: December 31, 2024 Celeste KAISER MD Attending physician Active Start: December 31, 2024 Celeste KAISER MD Referring Provider Active Start: December 31, 2024 Team Status: Active Member Role/Relationship Status Dates Dr. Monika Venegas MD Primary care physician Active Start: January 07, 2025 Celeste KAISER MD Attending physician Active Start: January 07, 2025 Team Status: Active Member Role/Relationship Status Dates Dr. Jagdish Noyola MD Primary care physician Active Start: January 14, 2025 Celeste KAISER MD Attending physician Active Start: January 14, 2025 Team Status: Inactive Member Role/Relationship Status Dates Dr. Odilon Melchor MD Attending physician Active Start: January 17, 2025 End: January 17, 2025 Dr. Odilon Melchor MD Referring Provider Active Start: January 17, 2025 End: January 17, 2025 Dr. Corey Kiran MD Primary care physician Active Start: January 17, 2025 End: January 17, 2025 Team Status: Inactive Member Role/Relationship Status Dates Dr. Monika Venegas MD Referring Provider Active Start: January 18, 2025 End: January 18, 2025 MAGALY Shahid Attending physician Active S tart: January 18, 2025 End: January 18, 2025 Dr. Corey Kiran MD Primary care physician Active Start: January 18, 2025 End: January 18, 2025 Team Status: Inactive Member Role/Relationship Status Dates Dr. Corey Kiran MD Primary care physician Active Start: January 31, 2025 End: January 31, 2025 Dr. Corey Kiran MD Referring Provider Active St art: January 31, 2025 End: January 31, 2025 MAGALY Shahid Attending physician Active S tart: January 31, 2025 End: January 31, 2025 Team Status: Inactive Member Role/Relationship Status Dates Dr. Monika Venegas MD Referring Provider Active Start: February 26, 2025 End: February 26, 2025 Dr. Odilon Melchor MD Attending physician Active Start: February 26, 2025 End: February 26, 2025 Dr. Corey Kiran MD Primary care physician Active Start: February 26, 2025 End: February 26, 2025 Team Status: Inactive Member Role/Relationship Status Dates Dr. Corey Kiran MD Primary care physician Active Start: February 26, 2025 End: February 26, 2025 Dr. Gagan Schulte MD Attending physician Active Start: February 26, 2025 End: February 26, 2025 Dr. Gagan Schulte MD Referring Provider Active Start: February 26, 2025 End: February 26, 2025 Team Status: Inactive Member Role/Relationship Status Dates Dr. Corey Kiran MD Primary care physician Active Start: March 13, 2025 End: March 13, 2025 Dr. Corey Kiran MD Referring Provider Active St art: March 13, 2025 End: March 13, 2025 Jagdish Moncada NEWS ASSIGNMENT EDITOR, NEWS ASSIGNMENT EDITOR-C Attending physician Active Start: March 13, 2025 End: March 13, 2025 Reason for Visit (unrecogniz ed section and content) Reason Comments New Patient Specialty Diagnoses / Procedures Referred By Contjose t Referred To Contact Neurologic Surgery Diagnoses Neoplasm of bone of skull Monika Venegas MD [address] [place] [address] [facility] [address] [place] [phone] Referral ID Status Reason Start Date Expiration Date V isits Requested Visits Authorized [id number] Pending Review 09/27/2022 10/22/2023 1 1 Reason Comments Pre-operative Consultation Specialty Diagnoses / Procedures Referred By Martha t Referred To Contact PreOp Diagnoses Skull mass Shaye Weston, PRINCIPAL SCIENTIST-DRY CLEANER [address] [place] [phone] Referral ID Status Reason Start Date Expiration Date V isits Requested Visits Authorized [id number] New Request 10/07/2022 11/01/2023 1 1 Specialty Diagnoses / Procedures Referred By Marlysac t Referred To Contact Diagnoses Skull mass Procedures MRI STEALTH BRAIN AL MRI BRAIN COMBO Shaye Weston Staci, PRINCIPAL SCIENTIST-DRY CLEANER [address] [place] [phone] Referral ID Status Reason Start Date Expiration Date V isits Requested Visits Authorized [id number] New Request 10/08/2022 11/02/2023 1 1 Specialty Diagnoses / Procedures Referred By Marlysac t Referred To Contact Diagnoses Neuroendocrine cancer Cancer of cerebral meninges Procedures MRI BRAIN WITH PERFUSION AL MRI BRAIN COMBO Nimo Bueno MD [address] [place] [phone] Referral ID Status Reason Start Date Expiration Date V isits Requested Visits Authorized [id number] New Request 01/06/2023 01/31/2024 1 1 Specialty Diagnoses / Procedures Referred By Contac t Referred To Contact Diagnoses Neuroendocrine cancer Cancer of cerebral meninges Procedures NUC PET NEUROENDOCRINE CHG NUC THERAPY HYPERTHYROID SUBSEQUENT Nimo Bueno MD [address] [place] [phone] Referral ID Status Reason Start Date Expiration Date V isits Requested Visits Authorized [id number] New Request 01/06/2023 01/31/2024 1 1 Reason Comments Continuity Of Care Specialty Diagnoses / Procedures Referred By Contac t Referred To Contact Diagnoses Neuroendocrine cancer Cancer of cerebral meninges Procedures RAD ONC SIMULATION Nimo Bueno MD [address] [place] [address] Referral ID Status Reason Start Date Expiration Date Visits Re quested Visits Authorized [id number] Closed 01/06/2023 01/31/2024 1 1 Reason Comments Consult Reason Comments On Treatment Visit Reason Comments On Treatment Visit Reason Comments Follow-up Specialty Diagnoses / Procedures Referred By Contac t Referred To Contact Diagnoses Cancer of cerebral meninges Procedures MRI BRAIN WITH PERFUSION AL MRI BRAIN COMBO Kristine Blue, PRINCIPAL SCIENTIST-DRY CLEANER [address] [place] [address] Referral ID Status Reason Start Date Expiration Date V isits Requested Visits Authorized [id number] New Request 05/19/2023 06/12/2024 1 1 Specialty Diagnoses / Procedures Referred By Contac t Referred To Contact Diagnoses Cancer of cerebral meninges Procedures MRI BRAIN WITH PERFUSION AL MRI BRAIN COMBO Nimo Bueno MD [address] [place] [phone] Referral ID Status Reason Start Date Expiration Date V isits Requested Visits Authorized [id number] New Request 08/23/2023 09/16/2024 1 1 Reason Comments Follow-up Specialty Diagnoses / Procedures Referred By Contac t Referred To Contact Diagnoses Cancer of cerebral meninges Neuroendocrine cancer Procedures NUC PET NEUROENDOCRINE CHG PET IMAGING CT ATTENUATION SKULL BASE MID-THIGH Nimo Bueno MD [address] [place] [address] Referral ID Status Reason Start Date Expiration Date V isits Requested Visits Authorized [id number] New Request 11/29/2023 12/23/2024 1 1 Specialty Diagnoses / Procedures Referred By Contac t Referred To Contact Diagnoses Cancer of cerebral meninges Neuroendocrine cancer Procedures MRI BRAIN WITH PERFUSION CHG MRI BRAIN BRAIN STEM W/O W/CONTRAST MATERIAL Nimo Bueno MD [address] [place] [address] Referral ID Status Reason Start Date Expiration Date V isits Requested Visits Authorized [id number] New Request 11/29/2023 12/23/2024 1 1 Specialty Diagnoses / Procedures Referred By Martha maciel Referred To Contact Diagnoses Cancer of cerebral meninges Procedures MRI BRAIN WITH PERFUSION CHG MRI BRAIN BRAIN STEM W/O W/CONTRAST MATERIAL Salts, Kristine Haro, PRINCIPAL SCIENTIST-DRY CLEANER [address] [place] [address] Referral ID Status Reason Start Date Expiration Date V isits Requested Visits Authorized [id number] New Request 03/14/2024 04/08/2025 1 1 Scheduled Active and Recently Administ ered Medications (unrecognized section and content) Medication Order 11/10/2024 11/11/2024 11/12/2024 AMIOdarone (PACERONE) tablet 200 mg 200 mg, Oral, DAILY, First dose on Donita 11/08/24 at 1615, Until Discontinued 0840 (Given - Provider: Greta Yoder, MICAH) 0927 (Given - Provider: Greta Yoder, MICAH) 0831 (Given - Provider: Shanna Benavides RN) [...] Oral, DAILY AT BEDTIME, First dose on Donita 11/08/24 at 2100, Until Discontinued 2015 (Given - [...] Shanna Benavides RN)1034 (Stopped - Provider: Shanna Benavides, MICAH)1418 (Stopped - Provider: Greta Yoder RN) 1025 ($$New Bag$$ - Provider: Shanna Benavides, MICAH)1025 (Rate/Dose Verify - Provider: Shanna Benavides RN)1054 (Stopped - Provider: Shanna Benavides, MICAH) Gadopiclenol SOLN 1-25 mL (COMPLETED) 1-25 mL, [...] Discontinued 0839 (Given - Provider: Greta Yoder RN)2016 (Given - Provider: Sharlene Moses, RN) 0927 (Given - Provider: Greta Yoder, MICAH)2100 (Given - Provider: Ashley Blake RN) 0831 (Given - Provider: Shanna Benavides RN) Lisinopril (PRINIVIL) tablet 10 mg 10 mg, Oral, DAILY, First dose (after last modification) on Tue11/11/24 at 0900, Until Discontinued 926 (Given - Provider: Greta Yoder RN) 830 (Given - Provider: Shanna Benavides, RN) Lisinopril (PRINIVIL) tablet 2.5 mg (CANCELED) 2.5 mg, Oral, DAILY, First dose on Tue11/10/24 at 0900, Until Discontinued 838 (Given - Provider: Greta Yoder RN) Polyethylene glycol (MIRALAX) packet 17 g 17 g, Oral, DAILY, First dose on Tue11/09/24 at 0900, Until Discontinued 839 (Given - Provider: Greta Yoder RN) 926 (Given - Provider: Greta Yoder RN) 830 (Given - Provider: Shanna Benavides, RN) Spironolactone (ALDACTONE) tablet 25 mg (CANCELED) 25 mg, Oral, DAILY, First dose on Tue11/09/24 at 0900, Until Discontinued 839 (Given - Provider: Greta Yoder RN) PRN [...] Sharlene Moses RN)1407 (Given - Provider: Greta Yoder, MICAH) 1317 (Given - Provider: Shanna Benavides, RN) guaiFENesin (ROBITUSSIN) oral solution 400 mg 400 [...] Until Tue11/12/24 at 1804, Nausea / Vomiting Dialysis Access Sites (unrec ognized section and content) Type Status Location Placement Date Removal Da te Arterial Line 11/16/22 1824 radial artery, left Inactive Left Wrist - Anterior 11/16/2022 0 11/17/2022 Arterial Line 11/16/22 0904 radial artery, right 20 gauge Inactive Right Wrist - Anterior 11/16/2022 3 INFORMATION SOURCE (unrecogn ized section and content) DATE CREATED AUTHOR 01/19/2025 [facility] DATE CREATED AUTHOR AUTHOR'S ORGANIZ ATION 03/22/2025 [facility] FOR RECORDS PERTAINING TO PATIENTS WHO [...] BE BASED ON THE PRIMARY CLINICAL RECORDS. [employer] [facility]. provides no warranty or guarantee of the accuracy or completeness of information in this document.
--- OUTSIDE RECORDS SUMMARY | 2025-03-26 19:08 | XMS RPT_ITS | CCD ---
Author Organization [facility] Care Team Providers Care Quality Assurance Coordinator Name Role Phone Dr. Monika Venegas Primary Care Provider Dr. Monika Venegas Referring Provider Dr. Rock Downing Attending Provider Monika Venegas MD Primary Care Provider Hugo, Dr. Jo-Ann Carias Admit Provider Dr. Jo-Ann Arias Attending Provider Dr. Jo-Ann Arias Other Provider uHgo, Dr. Jo-Ann Carias Referring Provider Monika Venegas [...] Provider Dr. Howard Rivera Other Provider Roof BEVERAGE HOST, BEVERAGE HOST-C Jagdish Basilio Other Provider Beasley BEVERAGE HOST, BEVERAGE HOST-C Kourtney Other Provider MAGALY Palomo Other Provider Dr. Alix Hudson Other Provider Dr. Alix Hudson Attending Provider MAGALY Palomo Attending Provider Dr. Monika Venegas Primary Care Provider Dr. Monika Venegas Referring Provider MAGALY Palomo Attending Provider Dr. Monika Venegas MD Primary Care Provider Dr. Nati Hudsno DO Attending Provider Dr. Nati Hudson DO [...] Unav ailable Oleghe MD, Celeste Attending Provider Unavailthair Venegas MD, Dr. Monika Smith Referring Provider [phone] Fabien DEL VALLE, Dr. Wilkerson Attending Provider Ruiz DEL VALLE, Dr. Donald Attending Provider [phone] Ruiz DEL VALLE, Dr. Donald Referring Provider Charles Sauceda Attending Provider Magno DEL VALLE, Dr. Nicole Primary Care Provider Donnell DEL VALLE, Dr. Alonso Attending Provider Ayaz BEVERAGE HOST-C, Cyndie Attending Provider Donnell DEL VALLE, Celeste Referring Provider Unavaila brisa Noyola MD, Dr. Jagdish Silver Primary Care Provider [phone] Magno DEL VALLE, Dr. Nicole Primary Care Provider Ayaz BEVERAGE HOST-C, Cyndie Attending Provider lAex Lockhart Attending Provider SHEBA BUENOSHUA D Attending [...] VALLE, Dr. Monika Smith Primary Care Physician Andrés DEL VALLE, Dr. Haynes Attending Physician Andrés DEL VALLE, Dr. Haynes Emergency Department Physician Hugo DO, Dr. Jo-Ann Carias Admitting Physici an Sementi DO, Dr. Jo-Ann Carias Attending Physici an Xochitl DEL VALLE, Dr. Eldridge Nurse Practitioner Jude [...] MD, Dr. Nicole Primary Care Physician Ayaz BEVERAGE HOST-C, Cyndie Attending Physician Donnell DEL VALLE, Dr. Alonso Attending Physician Fabien DEL VALLE, Dr. Wlikerson Attending Physician Ruiz DEL VALLE, Dr. Donald Attending Physician Charles Sauceda Attending Physician Dennys DEL VALLE, Dr. Jagdish Silver Primary Care Physician Alex Lockhart Attending Physician [phone] Eris DEL VALLE, Dr. Farah Attending Physician [phone] Eris DEL VALLE, Dr. Farah Referring Provider Theo DEL VALLE, Dr. Monika Smith Primary Care Physician Coral BEVERAGE HOST-C, Jagdish Basilio Attending Physician Gagan Schulte Referring [...] Unavailable Kiran, Corey Primary Care Unavailable Ayaz BEVERAGE HOSTCyndie Attending Unavailable Kiran, Corey Primary Care Unavailable [...] Primary Care Unavailable Alex Contreras Attending Unavailable Monika Venegas Referring Unavailable Odilon Melchor Attending Unavailable [...] 4 August 13, 2024 12:00am called to [facility] Start: 12-29-2022 End: 11-12-2024 Nhrbvsos-Cjnypymda-Jamydyn H mb (Bunny) 7-7-1.5 gram powder in packet (1 source) Start: 12-11-2024 Whngpsgb-Mhdpujijy-Ffytwgn Hmb (Bunny) 7-7-1.5 gram powder in packet [...] docusate sodium 50 mg / anthony osides, fdc 8.6 mg oral tablet (13 sources) Start: [...] HMG-CoA Reductase Inhibitor Start: 07-05-2018 End: 12-11-2024 Wmtzjowqe-Anfegpdzcsb-C it D (OSTEO BI-FLEX ONE PER DAY [...] (ZOFRAN) injection 4 mg polyethylene glycol [id number] mg powder for oral solution (20 sources) [...] 2022 12:00am January 13, 2023 1:18pm sennosides, fdc 8.6 mg oral tablet (2 sources) Start: [...] 10-13-2022 Zinc 50 MG tablet Take by [facility]. 10/13/2022 Discontinued (Stop Taking at Discharge) zinc [...] sources) Long-term current use of anticoagulant; Translations: [half-way (current) use of anticoagulants] 11-07-2024 Episodic Comment on above: On Eliquis for PAF.. 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 Today I did share CT images with [...] 09-27-2024 Episodic Other aftercare (3 sources) Other jail (current) drug therapy; Translations: [Long-term (current) use of other medications] Onset: 11-29-2024 07-19-2023 Episodic Other aftercare (1 source) half-way (current) use of anticoagulants; Translations: [half-way (current) use of anticoagulants] Onset: 12-10-2024 Episodic [...] Cardiology Visit Reporton Cardiology Visit Report Normal [facility] Urine Sodiumon 02-27-2025 Sodium (U) [Moles/Vol] 146 mmol/L Normal Not Establ. [facility] Comment on above: Order Comment: KEVIN Silver ADD SODIUM URINE MISSED FROM 02/26 Performed By: #### L 501.7400, L501.7300, L500.2500, L501.5500 ####[facility] [address] [place], [address] Anion gap in Serum or Plasma Ordered By: Gagan Schulte on 02-26-2025 Anion gap [Moles/Vol] 11 mmol/L - [facility] BUN/creatinine ratioOrdered By: Gagan Schulte on 02-26-2025 Urea nitrogen/Creatinine [Mass ratio] 19.2 mg/mg - [facility] Basic Metabolic Profile (BMP )on 02-26-2025 BUN/CRE 19.2 RATIO Normal 03-25 [facility] Comment on above: Performed By: #### L 501.7400, L501.7300, L500.2500, L501.5500 ####[facility] [address] [place], [address] Calcium [Mass/Vol] 9.1 mg/dL Normal 7.6-11.0 [facility] Comment on above: Performed By: #### L 501.7400, L501.7300, L500.2500, L501.5500 ####[facility] [address] [place], [address] Chloride [Moles/Vol] 99 mmol/L Normal 98-108 [facility] Comment on above: Performed By: #### L 501.7400, L501.7300, L500.2500, L501.5500 ####[facility] [address] [place], [address] CO2 [Moles/Vol] 27.6 mmol/L Normal 21.0-32.0 [facility] Comment on above: Performed By: #### L 501.7400, L501.7300, L500.2500, L501.5500 ####[facility] [address] [place], [address] Creatinine [Mass/Vol] 0.72 mg/dL Normal 0.70-1.20 [facility] Comment on above: Performed By: #### L 501.7400, L501.7300, L500.2500, L501.5500 ####[facility] [address] [place], [address] GAP 11 Normal 5-15 [facility] Comment on above: Performed By: #### L 501.7400, L501.7300, L500.2500, L501.5500 ####[facility] [address] [place], [address] GFR/1.73 sq M.predicted among non-blacks MDRD (S/P/Bld) [Vol rate/Area] 84 mL/min/{1.73_m2} Normal >60 [facility] Comment on above: Result Comment: mL/m in/1.73m2 CKD-EPI Creatinine Equation (2020) Performed By: #### L 501.7400, L501.7300, L500.2500, L501.5500 ####[facility] [address] [place], [address] Glucose [Mass/Vol] 121 mg/dL High 70-99 [facility] Comment on above: Performed By: #### L 501.7400, L501.7300, L500.2500, L501.5500 ####[facility] [address] [place], [address] Potassium [Moles/Vol] 2.9 mmol/L Low 3.3-5.1 [facility] Comment on above: Performed By: #### L 501.7400, L501.7300, L500.2500, L501.5500 ####[facility] [address] [place], [address] Sodium [Moles/Vol] 138 mmol/L Normal 133-145 [facility] Comment on above: Performed By: #### L 501.7400, L501.7300, L500.2500, L501.5500 ####[facility] [address] [place], [address] Urea nitrogen [Mass/Vol] 14 mg/dL Normal 4-19 [facility] Comment on above: Performed By: #### L 501.7400, L501.7300, L500.2500, L501.5500 ####[facility] [address] [place], [address] Carbon dioxide, total [Moles /volume] in Central venous bloodOrdered By: Gagan Schulte on 02-26-2025 CO2 [Moles/Vol] 27.6 mmol/L 21.0-32.0 [facility] Chloride assayOrdered By: Cas Schulte on 02-26-2025 Chloride [Moles/Vol] 99 mmol/L 98-108 [facility] Glomerular filtration rate ( GFR) estimation/1.73 sq m using serum, plasma, or whole bOrdered By: Gagan Schulte on 02-26-2025 GFR/1.73 sq M.predicted among non-blacks MDRD (S/P/Bld) [Vol rate/Area] 84 mL/min/{1.73_m2} >60 [facility] Neurology Visit Reporton Neurology Visit Report Normal [facility] Osmolality urOrdered By: Feng Schulte on 02-26-2025 Osmolality (U) [Osmolality] 349 mOsm/KG >50 [facility] Osmolality, Serumon 02-27-20 25 OSMOLALITY,SER 295 mOsm/KG Normal 280-301 [facility] Comment on above: Performed By: #### L 501.7400, L501.7300, L500.2500, L501.5500 ####[facility] [address] [place], [address] Osmolality, Urineon 02-27-20 25 OSMOLALITY,UR 349 mOsm/KG Normal [facility] Comment on above: Result Comment: Norm al Urine Reference Ranges Random: 50 - 1200 mOsm/kg H20 depending on fluid intake Random: >850 mOsm/kg after 12 hour fluid restriction 24 hour: 300 - 900 mOsm/kg H2O Performed By: #### L 501.7400, L501.7300, L500.2500, L501.5500 ####[facility] [address] [place], [place], [id number] Potassium measurement (mass/ volume)Ordered By: Gagan Schulte on 02-26-2025 Potassium (Unsp spec) [Mass/Vol] 2.9 mmol/L Low 3.3-5.1 [facility] Serum creatinine measurement (mass/volume)Ordered By: Gagan Schulte on 02-26-2025 Creatinine [Mass/Vol] 0.72 mg/dL 0.70-1.20 [facility] Serum glucose measurement (m ass/volume)Ordered By: Gagan Schulte on 02-26-2025 Glucose [Mass/Vol] 121 mg/dL High 70-99 [facility] Serum or plasma calcium ena urement (mass/volume)Ordered By: Gagan Schulte on 02-26-2025 Calcium [Mass/Vol] 9.1 mg/dL 7.6-11.0 [facility] Serum or plasma urea nitroge n measurement (mass/volume)Ordered By: Gagan Schulte on 02-26-2025 Urea nitrogen [Mass/Vol] 14 mg/dL 4-19 [facility] Sodium levelOrdered By: Brandan Schulte on 02-26-2025 Sodium [Moles/Vol] 138 mmol/L 133-145 [facility] Urine sodium measurement (mo les/volume)Ordered By: Gagan Schulte on 02-26-2025 Sodium (U) [Moles/Vol] 146 mmol/L Not Establ. [facility] Office Visit Reporton 2024 Office Visit Report Normal [facility] Cardiology Visit Reporton Cardiology Visit Report Normal [facility] Absolute lymphocyte countOrd ered By: Celeste Jacobo on 01-14-2025 Lymphocytes Auto (Unsp spec) [#/Vol] 0.60 10*3/uL Low 0.83-4.51 [facility] Anion gap in Serum or Plasma Ordered By: Celeste Jacobo on 01-14-2025 Anion gap [Moles/Vol] 8 mmol/L 5-15 [facility] Automated lymphocyte count a s percentage of total leukocytesOrdered By: Celeste Jacobo on 01-14-2025 Lymphocytes/100 WBC Auto (Unsp spec) 10.8 % Low 19-41 [facility] BUN/creatinine ratioOrdered By: Celeste Jacobo on 01-14-2025 Urea nitrogen/Creatinine [Mass ratio] 37.3 mg/mg High 10-20 [facility] Basophil percentageOrdered B y: Celeste Jacobo on 01-14-2025 Basophils/100 WBC (Bld) 0.5 % 0-1 [facility] Carbon dioxide, total [Moles /volume] in Central venous bloodOrdered By: Celeste Jacobo on 01-14-2025 CO2 [Moles/Vol] 23.8 mmol/L 21.0-32.0 [facility] Chloride assayOrdered By: Aki Jacobo on 01-14-2025 Chloride [Moles/Vol] 99 mmol/L 98-108 [facility] Eosinophil percentageOrdered By: Celeste Jacobo on 01-14-2025 Eosinophils/100 WBC (Bld) 0.4 % 0-5 [facility] Erythrocyte distribution wid th ratioOrdered By: Celeste Jacobo on 01-14-2025 Erythrocyte distribution width (RBC) [Ratio] 13.1 % 11.6-14.6 [facility] Erythrocyte distribution wid th standard deviationOrdered By: Celeste Jacobo on 01-14-2025 Erythrocyte distribution width (RBC) [Ratio] 44.3 fl High 35.1-43.9 [facility] Glomerular filtration rate ( GFR) estimation/1.73 sq m using serum, plasma, or whole bOrdered By: Celeste Jacobo on 01-14-2025 GFR/1.73 sq M.predicted among non-blacks MDRD (S/P/Bld) [Vol rate/Area] 92 mL/min/{1.73_m2} >60 [facility] Hematocrit Auto (Bld) [Volum e fraction]Ordered By: [facility] on 01-14-2025 Hematocrit (Bld) [Volume fraction] 30.6 % Low 37-47 [facility] Hemoglobin measurementOrdere d By: kal Jacobo on 01-14-2025 Hemoglobin (Bld) [Mass/Vol] 10.9 g/dL Low 12.0-15.0 [facility] Immature granulocytes/100 WB C Auto (Bld)Ordered By: Celeste Jacobo on 01-14-2025 Immature granulocytes/100 WBC (Bld) 0.500 % 0.0-0.9 [facility] MCV (mean corpuscular volume ) determinationOrdered By: Celeste Jacobo on 01-14-2025 MCV (RBC) [Entitic vol] 92.4 fL 81-99 [facility] Mean corpuscular hemoglobin (MCH) determinationOrdered By: [facility] Jacobo on 01-14-2025 MCH (RBC) [Entitic mass] 32.9 pg High 27.0-32.0 [facility] Monocyte percentageOrdered B y: kal Jacobo on 01-14-2025 Monocytes/100 WBC (Bld) 12.6 % High 0-10 [facility] Neutrophil percentageOrdered By: [facility] on 01-14-2025 Neutrophils/100 WBC (Bld) 75.2 % High 47-70 [facility] Platelet countOrdered By: [facility] on 01-14-2025 Platelets (Bld) [#/Vol] 232 10*3/uL 150-450 [facility] Potassium measurement (mass/ volume)Ordered By: Celeste Jacobo on 01-14-2025 Potassium (Unsp spec) [Mass/Vol] 3.8 mmol/L 3.3-5.1 [facility] RBC Auto (Bld) [#/Vol]Ordere d By: Celeste Jacobo on 01-14-2025 RBC (Bld) [#/Vol] 3.31 10*6/uL Low 4.2-5.4 [facility] Serum creatinine measurement (mass/volume)Ordered By: Celeste Jacobo on 01-14-2025 Creatinine [Mass/Vol] 0.56 mg/dL Low 0.70-1.20 [facility] Serum glucose measurement (m ass/volume)Ordered By: Celeste Jacobo on 01-14-2025 Glucose [Mass/Vol] 91 mg/dL 70-99 [facility] Serum or plasma calcium ena urement (mass/volume)Ordered By: Celeste Jacobo on 01-14-2025 Calcium [Mass/Vol] 8.5 mg/dL 7.6-11.0 [facility] Serum or plasma urea nitroge n measurement (mass/volume)Ordered By: Celeste Jacobo on 01-14-2025 Urea nitrogen [Mass/Vol] 21 mg/dL High 4-19 [facility] Sodium levelOrdered By: Ronald Jacobo on 01-14-2025 Sodium [Moles/Vol] 131 mmol/L Low 133-145 [facility] White blood cell (WBC) count Ordered By: Celeste Jacobo on 01-14-2025 WBC (Bld) [#/Vol] 5.6 10*3/uL 4.4-11.0 [facility] Absolute lymphocyte countOrd ered By: Celeste Jacobo on 01-07-2025 Lymphocytes Auto (Unsp spec) [#/Vol] 0.75 10*3/uL Low 0.83-4.51 [facility] Anion gap in Serum or Plasma Ordered By: Celeste Jacobo on 01-07-2025 Anion gap [Moles/Vol] 11 mmol/L 5-15 [facility] Automated lymphocyte count a s percentage of total leukocytesOrdered By: Celeste Jacobo on 01-07-2025 Lymphocytes/100 WBC Auto (Unsp spec) 11.7 % Low 19-41 [facility] BUN/creatinine ratioOrdered By: Celeste Jacobo on 01-07-2025 Urea nitrogen/Creatinine [Mass ratio] 26.0 mg/mg High 10-20 [facility] Basophil percentageOrdered B y: Celeste Jacobo on 01-07-2025 Basophils/100 WBC (Bld) 0.3 % 0-1 [facility] Carbon dioxide, total [Moles /volume] in Central venous bloodOrdered By: Celeste Jacobo on 01-07-2025 CO2 [Moles/Vol] 23.5 mmol/L 21.0-32.0 [facility] Chloride assayOrdered By: Aki Jacobo on 01-07-2025 Chloride [Moles/Vol] 98 mmol/L 98-108 [facility] Eosinophil percentageOrdered By: Celeste Jacobo on 01-07-2025 Eosinophils/100 WBC (Bld) 0.5 % 0-5 [facility] Erythrocyte distribution wid th ratioOrdered By: Celeste Jacobo on 01-07-2025 Erythrocyte distribution width (RBC) [Ratio] 13.3 % 11.6-14.6 [facility] Erythrocyte distribution wid th standard deviationOrdered By: Celeste Jacobo on 01-07-2025 Erythrocyte distribution width (RBC) [Ratio] 45.1 fl High 35.1-43.9 [facility] Glomerular filtration rate ( GFR) estimation/1.73 sq m using serum, plasma, or whole bOrdered By: Celeste Jacobo on 01-07-2025 GFR/1.73 sq M.predicted among non-blacks MDRD (S/P/Bld) [Vol rate/Area] 89 mL/min/{1.73_m2} >60 [facility] Hematocrit Auto (Bld) [Volum e fraction]Ordered By: Celeste Jacobo on 01-07-2025 Hematocrit (Bld) [Volume fraction] 34.0 % Low 37-47 [facility] Hemoglobin measurementOrdere d By: Celeste Jacobo on 01-07-2025 Hemoglobin (Bld) [Mass/Vol] 11.7 g/dL Low 12.0-15.0 [facility] Immature granulocytes/100 WB C Auto (Bld)Ordered By: Celeste Jacobo on 01-07-2025 Immature granulocytes/100 WBC (Bld) 0.800 % 0.0-0.9 [facility] MCV (mean corpuscular volume ) determinationOrdered By: Celeste Jacobo on 01-07-2025 MCV (RBC) [Entitic vol] 91.6 fL 81-99 [facility] Mean corpuscular hemoglobin (MCH) determinationOrdered By: Celeste Jacobo on 01-07-2025 MCH (RBC) [Entitic mass] 31.5 pg 27.0-32.0 [facility] Monocyte percentageOrdered B y: Celeste Jacobo on 01-07-2025 Monocytes/100 WBC (Bld) 10.7 % High 0-10 [facility] Neutrophil percentageOrdered By: Celeste Jacobo on 01-07-2025 Neutrophils/100 WBC (Bld) 76.0 % High 47-70 [facility] Platelet countOrdered By: Aki chachajohn Jacobo on 01-07-2025 Platelets (Bld) [#/Vol] 250 10*3/uL 150-450 [facility] Potassium measurement (mass/ volume)Ordered By: Celeste Jacobo on 01-07-2025 Potassium (Unsp spec) [Mass/Vol] 3.8 mmol/L 3.3-5.1 [facility] RBC Auto (Bld) [#/Vol]Ordere d By: Celeste Jacobo on 01-07-2025 RBC (Bld) [#/Vol] 3.71 10*6/uL Low 4.2-5.4 [facility] Serum creatinine measurement (mass/volume)Ordered By: Celeste Jacobo on 01-07-2025 Creatinine [Mass/Vol] 0.62 mg/dL Low 0.70-1.20 [facility] Serum glucose measurement (m ass/volume)Ordered By: Celeste Jacobo on 01-07-2025 Glucose [Mass/Vol] 91 mg/dL 70-99 [facility] Serum or plasma calcium ena urement (mass/volume)Ordered By: Celeste Jacobo on 01-07-2025 Calcium [Mass/Vol] 8.7 mg/dL 7.6-11.0 [facility] Serum or plasma urea nitroge n measurement (mass/volume)Ordered By: Celeste Jacobo on 01-07-2025 Urea nitrogen [Mass/Vol] 16 mg/dL 4-19 [facility] Sodium levelOrdered By: Ronald lopez Donnell on 01-07-2025 Sodium [Moles/Vol] 132 mmol/L Low 133-145 [facility] White blood cell (WBC) count Ordered By: Celeste Jacobo on 01-07-2025 WBC (Bld) [#/Vol] 6.4 10*3/uL 4.4-11.0 [facility] Absolute lymphocyte countOrd ered By: Celeste Jacobo on 12-31-2024 Lymphocytes Auto (Unsp spec) [#/Vol] 0.52 10*3/uL Low 0.83-4.51 [facility] Anion gap in Serum or Plasma Ordered By: Celeste Jacobo on 12-31-2024 Anion gap [Moles/Vol] 9 mmol/L 5-15 [facility] Automated lymphocyte count a s percentage of total leukocytesOrdered By: Celeste Jacobo on 12-31-2024 Lymphocytes/100 WBC Auto (Unsp spec) 10.3 % Low 19-41 [facility] BUN/creatinine ratioOrdered By: Celeste Jacobo on 12-31-2024 Urea nitrogen/Creatinine [Mass ratio] 37.7 mg/mg High 10-20 [facility] Basophil percentageOrdered B y: Celeste Jacobo on 12-31-2024 Basophils/100 WBC (Bld) 0.4 % 0-1 [facility] Carbon dioxide, total [Moles /volume] in Central venous bloodOrdered By: Celeste Jacobo on 12-31-2024 CO2 [Moles/Vol] 24.2 mmol/L 21.0-32.0 [facility] Chloride assayOrdered By: Aki Jacobo on 12-31-2024 Chloride [Moles/Vol] 100 mmol/L 98-108 [facility] Eosinophil percentageOrdered By: Celeste Jacobo 12-31-2024 Eosinophils/100 WBC (Bld) 0.6 % 0-5 [facility] Erythrocyte distribution wid th ratioOrdered By: Celeste Jacobo on 12-31-2024 Erythrocyte distribution width (RBC) [Ratio] 13.4 % 11.6-14.6 [facility] Erythrocyte distribution wid th standard deviationOrdered By: Celeste Jacobo on 12-31-2024 Erythrocyte distribution width (RBC) [Ratio] 45.3 fl High 35.1-43.9 [facility] Glomerular filtration rate ( GFR) estimation/1.73 sq m using serum, plasma, or whole bOrdered By: Celeste Jacobo on 12-31-2024 GFR/1.73 sq M.predicted among non-blacks MDRD (S/P/Bld) [Vol rate/Area] 93 mL/min/{1.73_m2} >60 [facility] Hematocrit Auto (Bld) [Volum e fraction]Ordered By: Celeste Jacobo 12-31-2024 Hematocrit (Bld) [Volume fraction] 29.0 % Low 37-47 [facility] Hemoglobin measurementOrdere d By: Celeste Jacobo 12-31-2024 Hemoglobin (Bld) [Mass/Vol] 10.1 g/dL Low 12.0-15.0 [facility] Immature granulocytes/100 WB C Auto (Bld)Ordered By: Celeste Jacobo on 12-31-2024 Immature granulocytes/100 WBC (Bld) 0.400 % 0.0-0.9 [facility] LevetiracetamOrdered By: Yonatan Jacobo 12-31-2024 levETIRAcetam [Mass/Vol] 22.7 ug/mL 10.0-40.0 [facility] MCV (mean corpuscular volume ) determinationOrdered By: Celeste Jacobo 5 MCV (RBC) [Entitic vol] 92.4 fL 81-99 [facility] Mean corpuscular hemoglobin (MCH) determinationOrdered By: Celeste Jacobo on 12-31-2024 MCH (RBC) [Entitic mass] 32.2 pg High 27.0-32.0 [facility] Monocyte percentageOrdered B y: Celeste Jacobo on 12-31-2024 Monocytes/100 WBC (Bld) 10.5 % High 0-10 [facility] Neutrophil percentageOrdered By: Celeste Jacobo on 12-31-2024 Neutrophils/100 WBC (Bld) 77.8 % High 47-70 [facility] Platelet countOrdered By: Aki Jacobo on 12-31-2024 Platelets (Bld) [#/Vol] 193 10*3/uL 150-450 [facility] Potassium measurement (mass/ volume)Ordered By: Celeste Jacobo on 12-31-2024 Potassium (Unsp spec) [Mass/Vol] 3.5 mmol/L 3.3-5.1 [facility] RBC Auto (Bld) [#/Vol]Ordere d By: Celeste Jacobo on 12-31-2024 RBC (Bld) [#/Vol] 3.14 10*6/uL Low 4.2-5.4 [facility] Serum creatinine measurement (mass/volume)Ordered By: Celeste Jacobo on 12-31-2024 Creatinine [Mass/Vol] 0.52 mg/dL Low 0.70-1.20 [facility] Serum glucose measurement (m ass/volume)Ordered By: Celeste Jacobo on 12-31-2024 Glucose [Mass/Vol] 92 mg/dL 70-99 [facility] Serum or plasma calcium ena urement (mass/volume)Ordered By: Celeste Jacobo on 12-31-2024 Calcium [Mass/Vol] 8.3 mg/dL 7.6-11.0 [facility] Serum or plasma urea nitroge n measurement (mass/volume)Ordered By: Celeste Jacobo on 12-31-2024 Urea nitrogen [Mass/Vol] 20 mg/dL High 4-19 [facility] Sodium levelOrdered By: Ronald Jacobo on 12-31-2024 Sodium [Moles/Vol] 133 mmol/L 133-145 [facility] White blood cell (WBC) count Ordered By: Celeste Jacobo on 12-31-2024 WBC (Bld) [#/Vol] 5.1 10*3/uL 4.4-11.0 [facility] Folates, RBCon 12-26-2024 Fol.,Hemolysate > 620.0 Normal Not Estab. [facility] Comment on above: Order Comment: Test( s) [id number]-Ark. B1, Whole Bloodwas developed and its performance characteristicsdetermined by [employer]. It has not been cleared or approvedby the Food and Drug Administration. Performed By: #### L 3100.1725, L503.0106, L3300.8000, L3300.0960, L503.5510, L501.5200, L3310.0000, L500.4050, L3130.0010, L100.0500, L501.9520 ####[facility] [address] [place], [place], [id number](335) Folate, RBC > 1797 Normal >498 [facility] Comment on above: Order Comment: Test( s) [id number]-Hvd. B1, Whole Bloodwas developed and its performance characteristicsdetermined by [employer]. It has not been cleared or approvedby the Food and Drug Administration. Performed By: #### L 3100.1725, L503.0106, L3300.8000, L3300.0960, L503.5510, L501.5200, L3310.0000, L500.4050, L3130.0010, L100.0500, L501.9520 ####[facility] [address] [place], [address] Hematocrit (Bld) [Volume fraction] 34.5 % Normal 34.0-46.6 [facility] Comment on above: Order Comment: Test( s) [id number]-Jan. B1, Whole Bloodwas developed and its performance characteristicsdetermined by [employer]. It has not been cleared or approvedby the Food and Drug Administration. Performed By: #### L 3100.1725, L503.0106, L3300.8000, L3300.0960, L503.5510, L501.5200, L3310.0000, L500.4050, L3130.0010, L100.0500, L501.9520 ####[facility] [address] [place], [place], [id number] KEPPRA (LEVETIRACETAM)on KEPPRA 43.5 ug/mL Abnormal 10.0-40.0 [facility] Comment on above: Order Comment: Test( s) [id number]-Ehf. B1, Whole Bloodwas developed and its performance characteristicsdetermined by [employer]. It has not been cleared or approvedby the Food and Drug Administration. Result Comment: Perf ormed at: [facility] [id number] Director: Ivan Valdes PhD, Phone: [phone] at: [facility] [employer] [id number] Director: Carli Dos Santos MD, Phone: [phone] Performed By: #### L 3100.1725, L503.0106, L3300.8000, L3300.0960, L503.5510, L501.5200, L3310.0000, L500.4050, L3130.0010, L100.0500, L501.9520 ####[facility] [address] [place], [address] [place] Lambda Light Chainson 12-26-2024 FR KAPPA LT CHN 13.4 mg/L Normal 3.3-19.4 [facility] Comment on above: Order Comment: Test( s) [id number]-Bbs. B1, Whole Bloodwas developed and its performance characteristicsdetermined by [employer]. It has not been cleared or approvedby the Food and Drug Administration. Performed By: #### L 3100.1725, L503.0106, L3300.8000, L3300.0960, L503.5510, L501.5200, L3310.0000, L500.4050, L3130.0010, L100.0500, L501.9520 ####[facility] [address] [place], [address] FR LAMBDA LT CH 13.3 mg/L Normal 5.7-26.3 [facility] Comment on above: Order Comment: Test( s) [id number]-Wrz. B1, Whole Bloodwas developed and its performance characteristicsdetermined by [employer]. It has not been cleared or approvedby the Food and Drug Administration. Performed By: #### L 3100.1725, L503.0106, L3300.8000, L3300.0960, L503.5510, L501.5200, L3310.0000, L500.4050, L3130.0010, L100.0500, L501.9520 ####[facility] [address] [place], [address] KAPPA/LAMBDA % 1.01 Normal 0.26-1.65 [facility] Comment on above: Order Comment: Test( s) [id number]-Uvg. B1, Whole Bloodwas developed and its performance characteristicsdetermined by [employer]. It has not been cleared or approvedby the Food and Drug Administration. Performed By: #### L 3100.1725, L503.0106, L3300.8000, L3300.0960, L503.5510, L501.5200, L3310.0000, L500.4050, L3130.0010, L100.0500, L501.9520 ####[facility] [address] [place], [address] Vitamin B1, Thiamineon 12-26 VIT B1 THIAMINE 146.9 nmol/L Normal 66.5-200.0 [facility] Comment on above: Order Comment: Test( s) [id number]-Anw. B1, Whole Bloodwas developed and its performance characteristicsdetermined by [employer]. It has not been cleared or approvedby the Food and Drug Administration. Performed By: #### L 3100.1725, L503.0106, L3300.8000, L3300.0960, L503.5510, L501.5200, L3310.0000, L500.4050, L3130.0010, L100.0500, L501.9520 ####[facility] [address] [place], [place], [id number] Vitamin D 1,25-Dihydroxyon 0 12-25-2024 VIT D 1,25 DIHY 42.2 pg/mL Normal 24.8-81.5 [facility] Comment on above: Result Comment: Perf ormed at: [facility] [address] [id number] Director: Carli Dos Santos MD, Phone: [phone] Performed By: #### L 3100.1725, L503.0106, L3300.8000, L3300.0960, L503.5510, L501.5200, L3310.0000, L500.4050, L3130.0010, L100.0500, L501.9520 ####[facility] [address] [place], [place], [id number] Absolute lymphocyte countOrd ered By: Celeste Jacobo on 12-24-2024 Lymphocytes Auto (Unsp spec) [#/Vol] 0.57 10*3/uL Low 0.83-4.51 [facility] Anion gap in Serum or Plasma Ordered By: Celeste Jacobo on 12-24-2024 Anion gap [Moles/Vol] 9 mmol/L 5-15 [facility] Automated lymphocyte count a s percentage of total leukocytesOrdered By: Celeste Jacobo on 12-24-2024 Lymphocytes/100 WBC Auto (Unsp spec) 10.4 % Low 19-41 [facility] BUN/creatinine ratioOrdered By: Celeste Jacobo on 12-24-2024 Urea nitrogen/Creatinine [Mass ratio] 30.7 mg/mg High 10-20 [facility] Basophil percentageOrdered B y: Celeste Jacobo on 12-24-2024 Basophils/100 WBC (Bld) 0.5 % 0-1 [facility] Bilirubin directOrdered By: Celeste Jacobo on 12-24-2024 Bilirubin.direct [Mass/Vol] 0.24 mg/dL 0.00-0.30 [facility] Bilirubin, totalOrdered By: Celeste Jacobo on 12-24-2024 Bilirubin [Mass/Vol] 0.65 mg/dL 0.00-1.30 [facility] Carbon dioxide, total [Moles /volume] in Central venous bloodOrdered By: Celeste Jacobo on 12-24-2024 CO2 [Moles/Vol] 22.3 mmol/L 21.0-32.0 [facility] Chloride assayOrdered By: Aki Jacobo on 12-24-2024 Chloride [Moles/Vol] 99 mmol/L 98-108 [facility] Eosinophil percentageOrdered By: Celeste Jacobo on 12-24-2024 Eosinophils/100 WBC (Bld) 0.7 % 0-5 [facility] Erythrocyte distribution wid th ratioOrdered By: Celeste Jacobo on 12-24-2024 Erythrocyte distribution width (RBC) [Ratio] 13.2 % 11.6-14.6 [facility] Erythrocyte distribution wid th standard deviationOrdered By: Celeste Jacobo on 12-24-2024 Erythrocyte distribution width (RBC) [Ratio] 45.6 fl High 35.1-43.9 [facility] Glomerular filtration rate ( GFR) estimation/1.73 sq m using serum, plasma, or whole bOrdered By: Celeste Jacobo on 12-24-2024 GFR/1.73 sq M.predicted among non-blacks MDRD (S/P/Bld) [Vol rate/Area] 89 mL/min/{1.73_m2} >60 [facility] Hematocrit Auto (Bld) [Volum e fraction]Ordered By: Celeste Jacobo on 12-24-2024 Hematocrit (Bld) [Volume fraction] 28.1 % Low 37-47 [facility] Hemoglobin measurementOrdere d By: Celeste Jacobo on 12-24-2024 Hemoglobin (Bld) [Mass/Vol] 9.7 g/dL Low 12.0-15.0 [facility] Immature granulocytes/100 WB C Auto (Bld)Ordered By: Celeste Jacobo on 12-24-2024 Immature granulocytes/100 WBC (Bld) 0.500 % 0.0-0.9 [facility] MCV (mean corpuscular volume ) determinationOrdered By: Celeste Jacobo on 12-24-2024 MCV (RBC) [Entitic vol] 93.7 fL 81-99 [facility] Mean corpuscular hemoglobin (MCH) determinationOrdered By: Celeste Jacobo on 12-24-2024 MCH (RBC) [Entitic mass] 32.3 pg High 27.0-32.0 [facility] Monocyte percentageOrdered B y: Celeste Jacobo on 12-24-2024 Monocytes/100 WBC (Bld) 8.4 % 0-10 [facility] Neutrophil percentageOrdered By: kal Jacobo on 12-24-2024 Neutrophils/100 WBC (Bld) 79.5 % High 47-70 [facility] No Panel InformationOrdered By: Celeste Jacobo on 12-24-2024 58 U/L High <32 [facility] Platelet countOrdered By: Aki Jacobo on 12-24-2024 Platelets (Bld) [#/Vol] 193 10*3/uL 150-450 [facility] Potassium measurement (mass/ volume)Ordered By: Celeste Jacobo on 12-24-2024 Potassium (Unsp spec) [Mass/Vol] 3.6 mmol/L 3.3-5.1 [facility] RBC Auto (Bld) [#/Vol]Ordere d By: Celeste Jacobo on 12-24-2024 RBC (Bld) [#/Vol] 3.00 10*6/uL Low 4.2-5.4 [facility] Serum creatinine measurement (mass/volume)Ordered By: Celeste Jacobo on 12-24-2024 Creatinine [Mass/Vol] 0.64 mg/dL Low 0.70-1.20 [facility] Serum globulin measurementOr dered By: Celeste Jacobo on 12-24-2024 Globulin (S) [Mass/Vol] 1.9 g/dL Low 2.2-4.2 [facility] Serum glucose measurement (m ass/volume)Ordered By: Celeste Jacobo on 12-24-2024 Glucose [Mass/Vol] 84 mg/dL 70-99 [facility] Serum or plasma alanine oliver otransferase (ALT) measurementOrdered By: Celeste Jacobo on 12-24-2024 ALT [Catalytic activity/Vol] 108 U/L High <35 [facility] Serum or plasma albumin ena urement (mass/volume)Ordered By: Celeste Jacobo on 12-24-2024 Albumin [Mass/Vol] 3.2 g/dL Low 3.4-4.8 [facility] Serum or plasma alkaline brenna sphatase measurementOrdered By: Celeste Jacobo on 12-24-2024 ALP [Catalytic activity/Vol] 85 U/L 35-104 [facility] Serum or plasma calcium ena urement (mass/volume)Ordered By: Celeste Jacobo on 12-24-2024 Calcium [Mass/Vol] 8.5 mg/dL 7.6-11.0 [facility] Serum or plasma urea nitroge n measurement (mass/volume)Ordered By: Celeste Jacobo on 12-24-2024 Urea nitrogen [Mass/Vol] 20 mg/dL High 4-19 [facility] Sodium levelOrdered By: Ronald Jacobo on 12-24-2024 Sodium [Moles/Vol] 131 mmol/L Low 133-145 [facility] Total proteinOrdered By: Yonatan Jacobo on 12-24-2024 Protein [Mass/Vol] 5.0 g/dL Low 5.9-8.4 [facility] White blood cell (WBC) count Ordered By: Celeste Jacobo on 12-24-2024 WBC (Bld) [#/Vol] 5.5 10*3/uL 4.4-11.0 [facility] Ammoniaon 12-20-2024 Ammonia (P) [Moles/Vol] 23.1 umol/L Normal 11-51 [facility] Comment on above: Performed By: #### L 3100.1725, L503.0106, L3300.8000, L3300.0960, L503.5510, L501.5200, L3310.0000, L500.4050, L3130.0010, L100.0500, L501.9520 ####[facility] [address] [place], [place], [id number] Anion gap in Serum or Plasma Ordered By: Odilon Melchor on 12-20-2024 Anion gap [Moles/Vol] 10 mmol/L 5-15 [facility] BUN/creatinine ratioOrdered By: Odilon Melchor on 12-20-2024 Urea nitrogen/Creatinine [Mass ratio] 35.3 mg/mg High 10-20 [facility] Bilirubin, totalOrdered By: Odilon Melchor on 12-20-2024 Bilirubin [Mass/Vol] 0.62 mg/dL 0.00-1.30 [facility] CBC-Complete Blood Cnt No Di ffon 12-20-2024 Erythrocyte distribution width (RBC) [Ratio] 13.5 % Normal 11.6-14.6 [facility] Comment on above: Performed By: #### L 3100.1725, L503.0106, L3300.8000, L3300.0960, L503.5510, L501.5200, L3310.0000, L500.4050, L3130.0010, L100.0500, L501.9520 ####[facility] [address] [place], [address] Hematocrit (Bld) [Volume fraction] 32.7 % Low 37-47 [facility] Comment on above: Performed By: #### L 3100.1725, L503.0106, L3300.8000, L3300.0960, L503.5510, L501.5200, L3310.0000, L500.4050, L3130.0010, L100.0500, L501.9520 ####[facility] [address] [place], [address] Hemoglobin (Bld) [Mass/Vol] 11.4 g/dL Low 12.0-15.0 [facility] Comment on above: Performed By: #### L 3100.1725, L503.0106, L3300.8000, L3300.0960, L503.5510, L501.5200, L3310.0000, L500.4050, L3130.0010, L100.0500, L501.9520 ####[facility] [address] [place], [address] MCH (RBC) [Entitic mass] 32.3 pg High 27.0-32.0 [facility] Comment on above: Performed By: #### L 3100.1725, L503.0106, L3300.8000, L3300.0960, L503.5510, L501.5200, L3310.0000, L500.4050, L3130.0010, L100.0500, L501.9520 ####[facility] [address] [place], [address] MCHC (RBC) [Mass/Vol] 34.9 g/dL Normal 32-36 [facility] Comment on above: Performed By: #### L 3100.1725, L503.0106, L3300.8000, L3300.0960, L503.5510, L501.5200, L3310.0000, L500.4050, L3130.0010, L100.0500, L501.9520 ####[facility] [address] [place], [address] MCV (RBC) [Entitic vol] 92.6 fL Normal 81-99 [facility] Comment on above: Performed By: #### L 3100.1725, L503.0106, L3300.8000, L3300.0960, L503.5510, L501.5200, L3310.0000, L500.4050, L3130.0010, L100.0500, L501.9520 ####[facility] [address] [place], [address] Platelet mean volume (Bld) [Entitic vol] 10.7 fL Normal 6.2-12.0 [facility] Comment on above: Performed By: #### L 3100.1725, L503.0106, L3300.8000, L3300.0960, L503.5510, L501.5200, L3310.0000, L500.4050, L3130.0010, L100.0500, L501.9520 ####[facility] [address] [place], [address] Platelets (Bld) [#/Vol] 259 10*3/uL Normal 150-450 [facility] Comment on above: Performed By: #### L 3100.1725, L503.0106, L3300.8000, L3300.0960, L503.5510, L501.5200, L3310.0000, L500.4050, L3130.0010, L100.0500, L501.9520 ####[facility] [address] [place], [address] RBC (Bld) [#/Vol] 3.53 10*6/uL Low 4.2-5.4 [facility] Comment on above: Performed By: #### L 3100.1725, L503.0106, L3300.8000, L3300.0960, L503.5510, L501.5200, L3310.0000, L500.4050, L3130.0010, L100.0500, L501.9520 ####[facility] [address] [place], [address] RDW SD 46.2 fl High 35.1-43.9 [facility] Comment on above: Performed By: #### L 3100.1725, L503.0106, L3300.8000, L3300.0960, L503.5510, L501.5200, L3310.0000, L500.4050, L3130.0010, L100.0500, L501.9520 ####[facility] [address] [place], [address] WBC (Bld) [#/Vol] 7.9 10*3/uL Normal 4.4-11.0 [facility] Comment on above: Performed By: #### L 3100.1725, L503.0106, L3300.8000, L3300.0960, L503.5510, L501.5200, L3310.0000, L500.4050, L3130.0010, L100.0500, L501.9520 ####[facility] [address] [place], [address] Carbon dioxide, total [Moles /volume] in Central venous bloodOrdered By: Odilon Melchor on 12-20-2024 CO2 [Moles/Vol] 24.6 mmol/L 21.0-32.0 [facility] Chloride assayOrdered By: Ra christ Melchor on 12-20-2024 Chloride [Moles/Vol] 97 mmol/L Low 98-108 [facility] Comprehensive Metabolic Prof ilon 12-20-2024 Albumin [Mass/Vol] 3.9 g/dL Normal 3.4-4.8 [facility] Comment on above: Performed By: #### L 3100.1725, L503.0106, L3300.8000, L3300.0960, L503.5510, L501.5200, L3310.0000, L500.4050, L3130.0010, L100.0500, L501.9520 ####[facility] [address] [place], [address] Albumin/Globulin [Mass ratio] 1.8 {ratio} Normal 0.9-2.4 [facility] Comment on above: Performed By: #### L 3100.1725, L503.0106, L3300.8000, L3300.0960, L503.5510, L501.5200, L3310.0000, L500.4050, L3130.0010, L100.0500, L501.9520 ####[facility] [address] [place], [place], [id number] ALK PHOS 110 U/L High 35-104 [facility] Comment on above: Performed By: #### L 3100.1725, L503.0106, L3300.8000, L3300.0960, L503.5510, L501.5200, L3310.0000, L500.4050, L3130.0010, L100.0500, L501.9520 ####[facility] [address] [place], [place], [id number] ALT [Catalytic activity/Vol] 145 U/L High <=34 [facility] Comment on above: Performed By: #### L 3100.1725, L503.0106, L3300.8000, L3300.0960, L503.5510, L501.5200, L3310.0000, L500.4050, L3130.0010, L100.0500, L501.9520 ####[facility] [address] [place], [address] AST [Catalytic activity/Vol] 79 U/L High <=31 [facility] Comment on above: Performed By: #### L 3100.1725, L503.0106, L3300.8000, L3300.0960, L503.5510, L501.5200, L3310.0000, L500.4050, L3130.0010, L100.0500, L501.9520 ####[facility] [address] [place], [place], [id number] Bilirubin [Mass/Vol] 0.62 mg/dL Normal 0.00-1.30 [facility] Comment on above: Performed By: #### L 3100.1725, L503.0106, L3300.8000, L3300.0960, L503.5510, L501.5200, L3310.0000, L500.4050, L3130.0010, L100.0500, L501.9520 ####[facility] [address] [place], [address] BUN/CRE 35.3 RATIO High 10-20 [facility] Comment on above: Performed By: #### L 3100.1725, L503.0106, L3300.8000, L3300.0960, L503.5510, L501.5200, L3310.0000, L500.4050, L3130.0010, L100.0500, L501.9520 ####[facility] [address] [place], [place], [phone](419) Calcium [Mass/Vol] 9.3 mg/dL Normal 7.6-11.0 [facility] Comment on above: Performed By: #### L 3100.1725, L503.0106, L3300.8000, L3300.0960, L503.5510, L501.5200, L3310.0000, L500.4050, L3130.0010, L100.0500, L501.9520 ####[facility] [address] [place], [place], [phone](663) Chloride [Moles/Vol] 97 mmol/L Low 98-108 [facility] Comment on above: Performed By: #### L 3100.1725, L503.0106, L3300.8000, L3300.0960, L503.5510, L501.5200, L3310.0000, L500.4050, L3130.0010, L100.0500, L501.9520 ####[facility] [address] [place], [place], [phone](170) CO2 [Moles/Vol] 24.6 mmol/L Normal 21.0-32.0 [facility] Comment on above: Performed By: #### L 3100.1725, L503.0106, L3300.8000, L3300.0960, L503.5510, L501.5200, L3310.0000, L500.4050, L3130.0010, L100.0500, L501.9520 ####[facility] [address] [place], [address] Creatinine [Mass/Vol] 0.65 mg/dL Low 0.70-1.20 [facility] Comment on above: Performed By: #### L 3100.1725, L503.0106, L3300.8000, L3300.0960, L503.5510, L501.5200, L3310.0000, L500.4050, L3130.0010, L100.0500, L501.9520 ####[facility] [address] [place], [address] GAP 10 Normal 5-15 [facility] Comment on above: Performed By: #### L 3100.1725, L503.0106, L3300.8000, L3300.0960, L503.5510, L501.5200, L3310.0000, L500.4050, L3130.0010, L100.0500, L501.9520 ####[facility] [address] [facility] [place], [address] GFR/1.73 sq M.predicted among non-blacks MDRD (S/P/Bld) [Vol rate/Area] 89 mL/min/{1.73_m2} Normal >60 [facility] Comment on above: Result Comment: mL/m in/1.73m2 CKD-EPI Creatinine Equation (2020) Performed By: #### L 3100.1725, L503.0106, L3300.8000, L3300.0960, L503.5510, L501.5200, L3310.0000, L500.4050, L3130.0010, L100.0500, L501.9520 ####[facility] [address] [place], [address] Globulin (S) [Mass/Vol] 2.2 g/dL Normal 2.2-4.2 [facility] Comment on above: Performed By: #### L 3100.1725, L503.0106, L3300.8000, L3300.0960, L503.5510, L501.5200, L3310.0000, L500.4050, L3130.0010, L100.0500, L501.9520 ####[facility] [address] [place], [address] Glucose [Mass/Vol] 143 mg/dL High 70-99 [facility] Comment on above: Performed By: #### L 3100.1725, L503.0106, L3300.8000, L3300.0960, L503.5510, L501.5200, L3310.0000, L500.4050, L3130.0010, L100.0500, L501.9520 ####[facility] [address] [place], [place], [phone](300) Potassium [Moles/Vol] 4.0 mmol/L Normal 3.3-5.1 [facility] Comment on above: Performed By: #### L 3100.1725, L503.0106, L3300.8000, L3300.0960, L503.5510, L501.5200, L3310.0000, L500.4050, L3130.0010, L100.0500, L501.9520 ####[facility] [address] [place], [address] Sodium [Moles/Vol] 131 mmol/L Low 133-145 [facility] Comment on above: Performed By: #### L 3100.1725, L503.0106, L3300.8000, L3300.0960, L503.5510, L501.5200, L3310.0000, L500.4050, L3130.0010, L100.0500, L501.9520 ####[facility] [address] [facility] [place], [address] T PROT 6.1 g/dL Normal 5.9-8.4 [facility] Comment on above: Performed By: #### L 3100.1725, L503.0106, L3300.8000, L3300.0960, L503.5510, L501.5200, L3310.0000, L500.4050, L3130.0010, L100.0500, L501.9520 ####[facility] [address] [place], [address] Urea nitrogen [Mass/Vol] 23 mg/dL High 4-19 [facility] Comment on above: Performed By: #### L 3100.1725, L503.0106, L3300.8000, L3300.0960, L503.5510, L501.5200, L3310.0000, L500.4050, L3130.0010, L100.0500, L501.9520 ####[facility] [address] [facility] [place], [address] Erythrocyte distribution wid th ratioOrdered By: Odilon Melchor on 12-20-2024 Erythrocyte distribution width (RBC) [Ratio] 13.5 % 11.6-14.6 [facility] Erythrocyte distribution wid th standard deviationOrdered By: Odilon [facility] on 12-20-2024 Erythrocyte distribution width (RBC) [Ratio] 46.2 fl High 35.1-43.9 [facility] Erythrocyte folate measureme nt with hematocritOrdered By: Odilon Melchor on 12-20-2024 Hematocrit (Bld) [Volume fraction] 34.5 % 34.0-46.6 [facility] Glomerular filtration rate ( GFR) estimation/1.73 sq m using serum, plasma, or whole bOrdered By: Odilon Melchor on 12-20-2024 GFR/1.73 sq M.predicted among non-blacks MDRD (S/P/Bld) [Vol rate/Area] 89 mL/min/{1.73_m2} >60 [facility] Hematocrit Auto (Bld) [Volum e fraction]Ordered By: Odilon Melchor on 12-20-2024 Hematocrit (Bld) [Volume fraction] 32.7 % Low 37-47 [facility] Hemoglobin measurementOrdere d By: Odilon Melchor on 12-20-2024 Hemoglobin (Bld) [Mass/Vol] 11.4 g/dL Low 12.0-15.0 [facility] LevetiracetamOrdered By: Sascha Melchor on 12-20-2024 levETIRAcetam [Mass/Vol] 43.5 ug/mL High 10.0-40.0 [facility] MCV (mean corpuscular volume ) determinationOrdered By: Odilon Melchor on 12-20-2024 MCV (RBC) [Entitic vol] 92.6 fL 81-99 [facility] Magnesiumon 12-20-2024 Magnesium [Mass/Vol] 1.9 mg/dL Normal 1.5-2.2 [facility] Comment on above: Performed By: #### L 3100.1725, L503.0106, L3300.8000, L3300.0960, L503.5510, L501.5200, L3310.0000, L500.4050, L3130.0010, L100.0500, L501.9520 ####[facility] [address] [place], [place], [id number] Magnesium measurement (mass/ volume)Ordered By: Odilon Melchor on 12-20-2024 Magnesium (Unsp spec) [Mass/Vol] 1.9 mg/dL 1.5-2.2 [facility] Mean corpuscular hemoglobin (MCH) determinationOrdered By: Odilon Melchor on 12-20-2024 MCH (RBC) [Entitic mass] 32.3 pg High 27.0-32.0 [facility] Neurology Visit Reporton Neurology Visit Report Normal [facility] No Panel InformationOrdered By: Odilon Melchor on 12-20-2024 79 U/L High <32 [facility] Platelet countOrdered By: Ra christ Melchor on 12-20-2024 Platelets (Bld) [#/Vol] 259 10*3/uL 150-450 [facility] Potassium measurement (mass/ volume)Ordered By: Odilon Melchor on 12-20-2024 Potassium (Unsp spec) [Mass/Vol] 4.0 mmol/L 3.3-5.1 [facility] RBC Auto (Bld) [#/Vol]Ordere d By: Odilon Melchor on 12-20-2024 RBC (Bld) [#/Vol] 3.53 10*6/uL Low 4.2-5.4 [facility] Serum creatinine measurement (mass/volume)Ordered By: Odilon Melchor on 12-20-2024 Creatinine [Mass/Vol] 0.65 mg/dL Low 0.70-1.20 [facility] Serum globulin measurementOr dered By: Odilon Melchor on 12-20-2024 Globulin (S) [Mass/Vol] 2.2 g/dL 2.2-4.2 [facility] Serum glucose measurement (m ass/volume)Ordered By: Odilon Melchor on 12-20-2024 Glucose [Mass/Vol] 143 mg/dL High 70-99 [facility] Serum immunoglobulin kappa l ight chains/immunoglobulin lambda light chains mass ratioOrdered By: Odilon Melchor 12-20-2024 Immunoglobulin light chains.kappa/Immunoglo bulin light chains.lambda (S) [Mass ratio] 1.01 0.26-1.65 [facility] Serum or plasma alanine oliver otransferase (ALT) measurementOrdered By: Odilon Melchor 12-20-2024 ALT [Catalytic activity/Vol] 145 U/L High <35 [facility] Serum or plasma albumin ena urement (mass/volume)Ordered By: Odilon Melchor 12-20-2024 Albumin [Mass/Vol] 3.9 g/dL 3.4-4.8 [facility] Serum or plasma albumin/glob ulin mass ratioOrdered By: Odilon Melchor 12-20-2024 Albumin/Globulin [Mass ratio] 1.8 {ratio} 0.9-2.4 [facility] Serum or plasma alkaline brenna sphatase measurementOrdered By: Odilon Melchor on 12-20-2024 ALP [Catalytic activity/Vol] 110 U/L High 35-104 [facility] Serum or plasma calcitriol m easurement (mass/volume)Ordered By: Odilon Melchor on 12-20-2024 1,25-dihydroxyvitamin D3 [Mass/Vol] 42.2 pg/mL 24.8-81.5 [facility] Serum or plasma calcium ena urement (mass/volume)Ordered By: Odilon Melchor on 12-20-2024 Calcium [Mass/Vol] 9.3 mg/dL 7.6-11.0 [facility] Serum or plasma immunoglobul in kappa light chains measurement (mass/volume)Ordered By: Odilon Melchor on 12-20-2024 Immunoglobulin light chains.kappa [Mass/Vol] 13.4 mg/L 3.3-19.4 [facility] Serum or plasma thiamine silvio surement (mass/volume)Ordered By: Odilon Melchor on 12-20-2024 Thiamine [Mass/Vol] 146.9 nmol/L 66.5-200.0 [facility] Serum or plasma urea nitroge n measurement (mass/volume)Ordered By: Odilon Melchor on 12-20-2024 Urea nitrogen [Mass/Vol] 23 mg/dL High 4-19 [facility] Sodium levelOrdered By: Jovanni Melchor on 12-20-2024 Sodium [Moles/Vol] 131 mmol/L Low 133-145 [facility] TSH DL <= 0.005 mIU/L QnOrde red By: Odilon Melchor on 12-20-2024 TSH Qn 2.720 uIU/mL 0.300-4.200 [facility] Thyroid Stim Hormone (TSH)on 12-20-2024 TSH 2.720 uIU/mL Normal 0.300-4.200 [facility] Comment on above: Performed By: #### L 3100.1725, L503.0106, L3300.8000, L3300.0960, L503.5510, L501.5200, L3310.0000, L500.4050, L3130.0010, L100.0500, L501.9520 ####[facility] [address] [place], [place], [id number] Total proteinOrdered By: Sascha Melchor on 12-20-2024 Protein [Mass/Vol] 6.1 g/dL 5.9-8.4 [facility] Urgent Care Visit Reporton 0 12-20-2024 Urgent Care Visit Report Normal [facility] Venous blood ammonia measure mentOrdered By: Odilon Melchor on 12-20-2024 Ammonia (P) [Moles/Vol] 23.1 umol/L [facility] Vitamin B12on 12-20-2024 Cobalamin (Vitamin B12) [Mass/Vol] 2740 pg/mL High 180-914 [facility] Comment on above: Performed By: #### L 3100.1725, L503.0106, L3300.8000, L3300.0960, L503.5510, L501.5200, L3310.0000, L500.4050, L3130.0010, L100.0500, L501.9520 ####[facility] [address] [place], [place], [id number] Vitamin B12 ser/plasOrdered By: Odilon Melchor on 12-20-2024 Cobalamin (Vitamin B12) [Mass/Vol] 2740 pg/mL High 180-914 [facility] White blood cell (WBC) count Ordered By: Odilon Melchor on 12-20-2024 WBC (Bld) [#/Vol] 7.9 10*3/uL 4.4-11.0 [facility] Absolute lymphocyte countOrd ered By: Celeste Jacobo on 12-17-2024 Lymphocytes Auto (Unsp spec) [#/Vol] 0.64 10*3/uL Low 0.83-4.51 [facility] Anion gap in Serum or Plasma Ordered By: Celeste Jacobo on 12-17-2024 Anion gap [Moles/Vol] 9 mmol/L 5-15 [facility] Automated lymphocyte count a s percentage of total leukocytesOrdered By: Celeste Jacobo on 12-17-2024 Lymphocytes/100 WBC Auto (Unsp spec) 7.9 % Low 19-41 [facility] BUN/creatinine ratioOrdered By: Celeste Jacobo on 12-17-2024 Urea nitrogen/Creatinine [Mass ratio] 36.1 mg/mg High 10-20 [facility] Basophil percentageOrdered B y: Celeste Jacobo on 12-17-2024 Basophils/100 WBC (Bld) 0.6 % 0-1 [facility] Carbon dioxide, total [Moles /volume] in Central venous bloodOrdered By: Celeste Jacobo on 12-17-2024 CO2 [Moles/Vol] 22.1 mmol/L 21.0-32.0 [facility] Chloride assayOrdered By: Aki Jacobo on 12-17-2024 Chloride [Moles/Vol] 101 mmol/L 98-108 [facility] Eosinophil percentageOrdered By: Celeste Jacobo on 12-17-2024 Eosinophils/100 WBC (Bld) 0.5 % 0-5 [facility] Erythrocyte distribution wid th ratioOrdered By: Celeste Jacobo on 12-17-2024 Erythrocyte distribution width (RBC) [Ratio] 13.2 % 11.6-14.6 [facility] Erythrocyte distribution wid th standard deviationOrdered By: Celeste Jacobo on 12-17-2024 Erythrocyte distribution width (RBC) [Ratio] 44.9 fl High 35.1-43.9 [facility] Glomerular filtration rate ( GFR) estimation/1.73 sq m using serum, plasma, or whole bOrdered By: Celeste Jacobo on 12-17-2024 GFR/1.73 sq M.predicted among non-blacks MDRD (S/P/Bld) [Vol rate/Area] 90 mL/min/{1.73_m2} >60 [facility] Hematocrit Auto (Bld) [Volum e fraction]Ordered By: Celeste Jacobo on 12-17-2024 Hematocrit (Bld) [Volume fraction] 28.1 % Low 37-47 [facility] Hemoglobin measurementOrdere d By: Celeste Jcaobo on 12-17-2024 Hemoglobin (Bld) [Mass/Vol] 9.9 g/dL Low 12.0-15.0 [facility] Immature granulocytes/100 WB C Auto (Bld)Ordered By: Celeste Tobinnadeem on 12-17-2024 Immature granulocytes/100 WBC (Bld) 0.600 % 0.0-0.9 [facility] MCV (mean corpuscular volume ) determinationOrdered By: Celeste Tobinnadeem on 12-17-2024 MCV (RBC) [Entitic vol] 94.0 fL 81-99 [facility] Mean corpuscular hemoglobin (MCH) determinationOrdered By: Celeste Tobinnadeem on 12-17-2024 MCH (RBC) [Entitic mass] 33.1 pg High 27.0-32.0 [facility] Monocyte percentageOrdered B y: Celeste Jacobo on 12-17-2024 Monocytes/100 WBC (Bld) 9.2 % 0-10 [facility] Neutrophil percentageOrdered By: kal Jacobo on 12-17-2024 Neutrophils/100 WBC (Bld) 81.2 % High 47-70 [facility] Platelet countOrdered By: Aki Jacobo on 12-17-2024 Platelets (Bld) [#/Vol] 211 10*3/uL 150-450 [facility] Potassium measurement (mass/ volume)Ordered By: Celeste Christophermilindnadeem on 12-17-2024 Potassium (Unsp spec) [Mass/Vol] 3.9 mmol/L 3.3-5.1 [facility] RBC Auto (Bld) [#/Vol]Ordere d By: Celeste Jacobo on 12-17-2024 RBC (Bld) [#/Vol] 2.99 10*6/uL Low 4.2-5.4 [facility] Serum creatinine measurement (mass/volume)Ordered By: Shunclarissa Whitemilindnadeem on 12-17-2024 Creatinine [Mass/Vol] 0.59 mg/dL Low 0.70-1.20 [facility] Serum glucose measurement (m ass/volume)Ordered By: Celeste Jacobo on 12-17-2024 Glucose [Mass/Vol] 93 mg/dL 70-99 [facility] Serum or plasma calcium ena urement (mass/volume)Ordered By: Celeste Jacobo on 12-17-2024 Calcium [Mass/Vol] 8.3 mg/dL 7.6-11.0 [facility] Serum or plasma urea nitroge n measurement (mass/volume)Ordered By: Celeste Jacobo on 12-17-2024 Urea nitrogen [Mass/Vol] 21 mg/dL High 4-19 [facility] Sodium levelOrdered By: Ronald gardnermoises Donnell on 12-17-2024 Sodium [Moles/Vol] 131 mmol/L Low 133-145 [facility] White blood cell (WBC) count Ordered By: Celeste Jacobo on 12-17-2024 WBC (Bld) [#/Vol] 8.1 10*3/uL 4.4-11.0 [facility] Cardiology Visit Reporton Cardiology Visit Report Normal [facility] Absolute lymphocyte countOrd ered By: Celeste Jacobo on 12-10-2024 Lymphocytes Auto (Unsp spec) [#/Vol] 0.52 10*3/uL Low 0.83-4.51 [facility] Absolute neutrophil countOrd ered By: Celeste Jacobo on 12-10-2024 Neutrophils (Bld) [#/Vol] 7.3 10*3/uL 2.0-7.7 [facility] Anion gap in Serum or Plasma Ordered By: Celeste Jacobo on 12-10-2024 Anion gap [Moles/Vol] 10 mmol/L 5-15 [facility] Automated lymphocyte count a s percentage of total leukocytesOrdered By: Celeste Jacobo on 12-10-2024 Lymphocytes/100 WBC Auto (Unsp spec) 6.1 % Low 19-41 [facility] BUN/creatinine ratioOrdered By: Celeste Jacobo on 12-10-2024 Urea nitrogen/Creatinine [Mass ratio] 30.6 mg/mg High 10-20 [facility] Basophil percentageOrdered B y: Celeste Jacobo on 12-10-2024 Basophils/100 WBC (Bld) 0.2 % 0-1 [facility] Bilirubin, totalOrdered By: Celeste Christopherkayy on 12-10-2024 Bilirubin [Mass/Vol] 0.70 mg/dL 0.00-1.30 [facility] Carbon dioxide, total [Moles /volume] in Central venous bloodOrdered By: Akichachakalyanclarissa Whitemilindnadeem on 12-10-2024 CO2 [Moles/Vol] 21.7 mmol/L 21.0-32.0 [facility] Chloride assayOrdered By: Aki kal Christophermilindnadeem on 12-10-2024 Chloride [Moles/Vol] 99 mmol/L 98-108 [facility] Eosinophil percentageOrdered By: Celeste Christopherkayy on 12-10-2024 Eosinophils/100 WBC (Bld) 0.1 % 0-5 [facility] Erythrocyte distribution wid th ratioOrdered By: Celeste Christophermilindnadeem on 12-10-2024 Erythrocyte distribution width (RBC) [Ratio] 13.2 % 11.6-14.6 [facility] Erythrocyte distribution wid th standard deviationOrdered By: chachasomersetclarissa Christophermilindnadeem on 12-10-2024 Erythrocyte distribution width (RBC) [Ratio] 44.8 fl High 35.1-43.9 [facility] Glomerular filtration rate ( GFR) estimation/1.73 sq m using serum, plasma, or whole bOrdered By: Akichachakalyanclarissa Whitemilindnadeem on 12-10-2024 GFR/1.73 sq M.predicted among non-blacks MDRD (S/P/Bld) [Vol rate/Area] 86 mL/min/{1.73_m2} >60 [facility] Comment on above: mL/min/1.73m2 CKD-EP I Creatinine Equation (2020) Hematocrit Auto (Bld) [Volum e fraction]Ordered By: Celeste Jacobo on 12-10-2024 Hematocrit (Bld) [Volume fraction] 29.3 % Low 37-47 [facility] Hemoglobin measurementOrdere d By: Celeste Jacobo on 12-10-2024 Hemoglobin (Bld) [Mass/Vol] 10.5 g/dL Low 12.0-15.0 [facility] Immature granulocytes/100 WB C Auto (Bld)Ordered By: Celeste Jacobo on 12-10-2024 Immature granulocytes/100 WBC (Bld) 0.800 % 0.0-0.9 [facility] Comment on above: IG% - Immature Granu locytes (promyelocytes, myelocytes and metamyelocytes) > 1% indicates that a LEFT SHIFT is Present. Laboratory - Chemistry and C hemistry - challengeOrdered By: Celeste Jacobo on 12-10-2024 AST [Catalytic activity/Vol] 63 U/L High <32 [facility] LevetiracetamOrdered By: Yonatan Jacobo on 12-10-2024 levETIRAcetam [Mass/Vol] 21.5 ug/mL 10.0-40.0 [facility] MCV (mean corpuscular volume ) determinationOrdered By: Celeste Jacobo on 12-10-2024 MCV (RBC) [Entitic vol] 92.7 fL 81-99 [facility] Mean corpuscular hemoglobin (MCH) determinationOrdered By: Celeste Jacobo on 12-10-2024 MCH (RBC) [Entitic mass] 33.2 pg High 27.0-32.0 [facility] Mean corpuscular hemoglobin concentration (MCHC) determinationOrdered By: Celeste Jacobo on 12-10-2024 MCHC (RBC) [Mass/Vol] 35.8 g/dL 32-36 [facility] Mean platelet volume determi nationOrdered By: Celeste Jacobo on 12-10-2024 Platelet mean volume (Bld) [Entitic vol] 10.9 fL 6.2-12.0 [facility] Monocyte percentageOrdered B y: Celeste Jacobo on 12-10-2024 Monocytes/100 WBC (Bld) 6.9 % 0-10 [facility] Neutrophil percentageOrdered By: Celeste Jacboo on 12-10-2024 Neutrophils/100 WBC (Bld) 85.9 % High 47-70 [facility] No Panel InformationOrdered By: Celeste Jacobo on 12-10-2024 63 U/L High <32 [facility] Nucleated red blood cell per centageOrdered By: Celeste Jacobo on 12-10-2024 Nucleated RBC/100 WBC (Bld) [Ratio] 0 % 0-5 [facility] Platelet countOrdered By: Aki Jacobo on 12-10-2024 Platelets (Bld) [#/Vol] 231 10*3/uL 150-450 [facility] Potassium measurement (mass/ volume)Ordered By: Celeste Jacobo on 12-10-2024 Potassium (Unsp spec) [Mass/Vol] 3.6 mmol/L 3.3-5.1 [facility] RBC Auto (Bld) [#/Vol]Ordere d By: Celeste Jacobo on 12-10-2024 RBC (Bld) [#/Vol] 3.16 10*6/uL Low 4.2-5.4 [facility] Serum creatinine measurement (mass/volume)Ordered By: Celeste Jacobo on 12-10-2024 Creatinine [Mass/Vol] 0.71 mg/dL 0.70-1.20 [facility] Serum globulin measurementOr dered By: Celeste Jacobo on 12-10-2024 Globulin (S) [Mass/Vol] 1.9 g/dL Low 2.2-4.2 [facility] Serum glucose measurement (m ass/volume)Ordered By: Celeste Jacobo on 12-10-2024 Glucose [Mass/Vol] 141 mg/dL High 70-99 [facility] Serum or plasma alanine oliver otransferase (ALT) measurementOrdered By: Celeste Jacobo on 12-10-2024 ALT [Catalytic activity/Vol] 130 U/L High <35 [facility] Serum or plasma albumin ena urement (mass/volume)Ordered By: Celeste Jacobo on 12-10-2024 Albumin [Mass/Vol] 3.3 g/dL Low 3.4-4.8 [facility] Serum or plasma albumin/glob ulin mass ratioOrdered By: Celeste Jacobo on 12-10-2024 Albumin/Globulin [Mass ratio] 1.7 {ratio} 0.9-2.4 [facility] Serum or plasma alkaline brenna sphatase measurementOrdered By: Celeste Christopherkayy on 12-10-2024 ALP [Catalytic activity/Vol] 94 U/L 35-104 [facility] Serum or plasma calcium ena urement (mass/volume)Ordered By: Celeste Christophermilindnadeem on 12-10-2024 Calcium [Mass/Vol] 8.5 mg/dL 7.6-11.0 [facility] Serum or plasma urea nitroge n measurement (mass/volume)Ordered By: Celeste Christophermilindnadeem on 12-10-2024 Urea nitrogen [Mass/Vol] 22 mg/dL High 4-19 [facility] Sodium levelOrdered By: Ronald lopez Christophermilindnadeem on 12-10-2024 Sodium [Moles/Vol] 131 mmol/L Low 133-145 [facility] Total proteinOrdered By: Yonatan jimenez Christophermilindnadeem on 12-10-2024 Protein [Mass/Vol] 5.2 g/dL Low 5.9-8.4 [facility] Vitamin B12 ser/plasOrdered By: Celeste Christophermilindnadeem on 12-10-2024 Cobalamin (Vitamin B12) [Mass/Vol] 2286 pg/mL High 180-914 [facility] White blood cell (WBC) count Ordered By: Celeste Christophermilindnadeem on 12-10-2024 WBC (Bld) [#/Vol] 8.5 10*3/uL 4.4-11.0 [facility] CBC W/Diff, Automatedon Absolute Neut Normal 2.0-7.7 [facility] Comment on above: Result Comment: Canc elled via OM: Order cancelled - Patient discharged Performed By: #### L 100.0100 ####[facility] [address] [place], [place], [address] HCT Normal 37-47 [facility] Comment on above: Result Comment: Canc elled via OM: Order cancelled - Patient discharged Performed By: #### L 100.0100 ####[facility] [address] [place], [address] HGB Normal 12.0-15.0 [facility] Comment on above: Result Comment: Canc elled via OM: Order cancelled - Patient discharged Performed By: #### L 100.0100 ####[facility] [address] [place], [address] MCH Normal 27.0-32.0 [facility] Comment on above: Result Comment: Canc elled via OM: Order cancelled - Patient discharged Performed By: #### L 100.0100 ####[facility] [address] [place], [address] MCHC Normal 32-36 [facility] Comment on above: Result Comment: Canc elled via OM: Order cancelled - Patient discharged Performed By: #### L 100.0100 ####[facility] [address] [place], [address] MCV Normal 81-99 [facility] Comment on above: Result Comment: Canc elled via OM: Order cancelled - Patient discharged Performed By: #### L 100.0100 ####[facility] [address] [place], [address] NEUT% Normal 47-70 [facility] Comment on above: Result Comment: Canc elled via OM: Order cancelled - Patient discharged Performed By: #### L 100.0100 ####[facility] [address] [place], [address] PLT Normal 150-450 [facility] Comment on above: Result Comment: Canc elled via OM: Order cancelled - Patient discharged Performed By: #### L 100.0100 ####[facility] [address] [place], [address] RBC Normal 4.2-5.4 [facility] Comment on above: Result Comment: Canc elled via OM: Order cancelled - Patient discharged Performed By: #### L 100.0100 ####[facility] [address] [place], [address] RDW CV Normal 11.6-14.6 [facility] Comment on above: Result Comment: Canc elled via OM: Order cancelled - Patient discharged Performed By: #### L 100.0100 ####[facility] [address] [place], [address] RDW SD Normal 35.1-43.9 [facility] Comment on above: Result Comment: Canc elled via OM: Order cancelled - Patient discharged Performed By: #### L 100.0100 ####[facility] [address] [place], [address] WBC Normal 4.4-11.0 [facility] Comment on above: Result Comment: Canc elled via OM: Order cancelled - Patient discharged Performed By: #### L 100.0100 ####[facility] [address] [place], [address] Anion gap in Serum or Plasma Ordered By: Alix Hudson on 12-06-2024 Anion gap [Moles/Vol] 8 mmol/L - [facility] BUN/creatinine ratioOrdered By: Alix Hudson on 12-06-2024 Urea nitrogen/Creatinine [Mass ratio] 19.4 mg/mg - [facility] Basic Metabolic Profile (BMP )on 12-06-2024 BUN/CRE 19.4 RATIO Normal - [facility] Comment on above: Performed By: #### L 500.2500 ####[facility] [address] [place], [address] Calcium [Mass/Vol] 8.4 mg/dL Normal 7.6-11.0 [facility] Comment on above: Performed By: #### L 500.2500 ####[facility] [address] [place], [address] Chloride [Moles/Vol] 101 mmol/L Normal 98-108 [facility] Comment on above: Performed By: #### L 500.2500 ####[facility] [address] [place], [address] CO2 [Moles/Vol] 23.6 mmol/L Normal 21.0-32.0 [facility] Comment on above: Performed By: #### L 500.2500 ####[facility] [address] [place], [address] Creatinine [Mass/Vol] 0.68 mg/dL Low 0.70-1.20 [facility] Comment on above: Performed By: #### L 500.2500 ####[facility] [address] [place], [address] ECRCL 39.62 ml/min Low 50-250 [facility] Comment on above: Performed By: #### L 500.2500 ####[facility] [address] [place], [address] GAP 8 Normal 5-15 [facility] Comment on above: Performed By: #### L 500.2500 ####[facility] [address] [place], [address] GFR/1.73 sq M.predicted among non-blacks MDRD (S/P/Bld) [Vol rate/Area] 88 mL/min/{1.73_m2} Normal >60 [facility] Comment on above: Result Comment: mL/m in/1.73m2 CKD-EPI Creatinine Equation (2020) Performed By: #### L 500.2500 ####[facility] [address] [place], [address] Glucose [Mass/Vol] 99 mg/dL Normal 70-99 [facility] Comment on above: Performed By: #### L 500.2500 ####[facility] [address] [place], [address] Potassium [Moles/Vol] 3.8 mmol/L Normal 3.3-5.1 [facility] Comment on above: Performed By: #### L 500.2500 ####[facility] [address] [place], [address] Sodium [Moles/Vol] 133 mmol/L Normal 133-145 [facility] Comment on above: Performed By: #### L 500.2500 ####[facility] [address] [place], [address] Urea nitrogen [Mass/Vol] 13 mg/dL Normal 4-19 [facility] Comment on above: Performed By: #### L 500.2500 ####[facility] [address] [place], [place], [phone] Carbon dioxide, total [Moles /volume] in Central venous bloodOrdered By: Alix Hudson on 12-06-2024 CO2 [Moles/Vol] 23.6 mmol/L 21.0-32.0 [facility] Chloride assayOrdered By: Priya Hudson on 12-06-2024 Chloride [Moles/Vol] 101 mmol/L 98-108 [facility] Glomerular filtration rate ( GFR) estimation/1.73 sq m using serum, plasma, or whole bOrdered By: Alix Hudson on 12-06-2024 GFR/1.73 sq M.predicted among non-blacks MDRD (S/P/Bld) [Vol rate/Area] 88 mL/min/{1.73_m2} >60 [facility] Comment on above: mL/min/1.73m2 CKD-EP I Creatinine Equation (2020) Potassium measurement (mass/ volume)Ordered By: Alix Hudson on 12-06-2024 Potassium (Unsp spec) [Mass/Vol] 3.8 mmol/L 3.3-5.1 [facility] Serum creatinine measurement (mass/volume)Ordered By: Alix Hudson on 12-06-2024 Creatinine [Mass/Vol] 0.68 mg/dL Low 0.70-1.20 [facility] Serum glucose measurement (m ass/volume)Ordered By: Alix Hudson on 12-06-2024 Glucose [Mass/Vol] 99 mg/dL 70-99 [facility] Serum or plasma calcium ena urement (mass/volume)Ordered By: Alix Hudson on 12-06-2024 Calcium [Mass/Vol] 8.4 mg/dL 7.6-11.0 [facility] Serum or plasma urea nitroge n measurement (mass/volume)Ordered By: Alix Hudson on 12-06-2024 Urea nitrogen [Mass/Vol] 13 mg/dL 4-19 [facility] Sodium levelOrdered By: Regina Hudson on 12-06-2024 Sodium [Moles/Vol] 133 mmol/L 133-145 [facility] Urine Cultureon 12-06-2024 URC Normal [facility] Comment on above: Performed By: #### M 100.2200 ####[facility] [address] [place], [address] Basic Metabolic Profile (BMP )on 12-05-2024 BUN/CRE 22.7 RATIO High 10-20 [facility] Comment on above: Performed By: #### L 500.2500 ####[facility] [address] [place], [address] Calcium [Mass/Vol] 8.8 mg/dL Normal 7.6-11.0 [facility] Comment on above: Performed By: #### L 500.2500 ####[facility] [address] [place], [address] Chloride [Moles/Vol] 93 mmol/L Low 98-108 [facility] Comment on above: Performed By: #### L 500.2500 ####[facility] [address] [place], [address] CO2 [Moles/Vol] 23.2 mmol/L Normal 21.0-32.0 [facility] Comment on above: Performed By: #### L 500.2500 ####[facility] [address] [place], [address] Creatinine [Mass/Vol] 0.69 mg/dL Low 0.70-1.20 [facility] Comment on above: Performed By: #### L 500.2500 ####[facility] [address] [place], [address] ECRCL 39.62 ml/min Low 50-250 [facility] Comment on above: Performed By: #### L 500.2500 ####[facility] [address] [place], [address] GAP 10 Normal 5-15 [facility] Comment on above: Performed By: #### L 500.2500 ####[facility] [address] [place], [address] GFR/1.73 sq M.predicted among non-blacks MDRD (S/P/Bld) [Vol rate/Area] 87 mL/min/{1.73_m2} Normal >60 [facility] Comment on above: Result Comment: mL/m in/1.73m2 CKD-EPI Creatinine Equation (2020) Performed By: #### L 500.2500 ####[facility] [address] [place], [address] Glucose [Mass/Vol] 156 mg/dL High 70-99 [facility] Comment on above: Performed By: #### L 500.2500 ####[facility] [address] [place], [address] Potassium [Moles/Vol] 4.0 mmol/L Normal 3.3-5.1 [facility] Comment on above: Performed By: #### L 500.2500 ####[facility] [address] [place], [address] Sodium [Moles/Vol] 126 mmol/L Low 133-145 [facility] Comment on above: Performed By: #### L 500.2500 ####[facility] [address] [place], [address] Urea nitrogen [Mass/Vol] 16 mg/dL Normal 4-19 [facility] Comment on above: Performed By: #### L 500.2500 ####[facility] [address] [place], [address] BUN/CRE 21.2 RATIO High 10-20 [facility] Comment on above: Performed By: #### L 500.2500, L100.0500 ####[facility] [address] [place], [address] Calcium [Mass/Vol] 8.5 mg/dL Normal 7.6-11.0 [facility] Comment on above: Performed By: #### L 500.2500, L100.0500 ####[facility] [address] [place], [address] Chloride [Moles/Vol] 94 mmol/L Low 98-108 [facility] Comment on above: Performed By: #### L 500.2500, L100.0500 ####[facility] [address] [place], [address] CO2 [Moles/Vol] 21.8 mmol/L Normal 21.0-32.0 [facility] Comment on above: Performed By: #### L 500.2500, L100.0500 ####[facility] [address] [place], [address] Creatinine [Mass/Vol] 0.60 mg/dL Low 0.70-1.20 [facility] Comment on above: Performed By: #### L 500.2500, L100.0500 ####[facility] [address] [place], [address] ECRCL 39.62 ml/min Low 50-250 [facility] Comment on above: Performed By: #### L 500.2500, L100.0500 ####[facility] [address] [place], [address] GAP 11 Normal 5-15 [facility] Comment on above: Performed By: #### L 500.2500, L100.0500 ####[facility] [address] [place], [address] GFR/1.73 sq M.predicted among non-blacks MDRD (S/P/Bld) [Vol rate/Area] 90 mL/min/{1.73_m2} Normal >60 [facility] Comment on above: Result Comment: mL/m in/1.73m2 CKD-EPI Creatinine Equation (2020) Performed By: #### L 500.2500, L100.0500 ####[facility] [address] [place], [address] Glucose [Mass/Vol] 94 mg/dL Normal 70-99 [facility] Comment on above: Performed By: #### L 500.2500, L100.0500 ####[facility] [address] [place], [address] Potassium [Moles/Vol] 3.8 mmol/L Normal 3.3-5.1 [facility] Comment on above: Performed By: #### L 500.2500, L100.0500 ####[facility] [address] [place], [address] Sodium [Moles/Vol] 126 mmol/L Low 133-145 [facility] Comment on above: Performed By: #### L 500.2500, L100.0500 ####[facility] [address] [place], [address] Urea nitrogen [Mass/Vol] 13 mg/dL Normal 4-19 [facility] Comment on above: Performed By: #### L 500.2500, L100.0500 ####[facility] [address] [place], [address] CBC-Complete Blood Cnt No Di ffon 12-05-2024 Erythrocyte distribution width (RBC) [Ratio] 12.4 % Normal 11.6-14.6 [facility] Comment on above: Performed By: #### L 500.2500, L100.0500 ####[facility] [address] [place], [address] Hematocrit (Bld) [Volume fraction] 27.4 % Low 37-47 [facility] Comment on above: Performed By: #### L 500.2500, L100.0500 ####[facility] [address] [place], [address] Hemoglobin (Bld) [Mass/Vol] 9.8 g/dL Low 12.0-15.0 [facility] Comment on above: Performed By: #### L 500.2500, L100.0500 ####[facility] [address] [place], [address] MCH (RBC) [Entitic mass] 33.0 pg High 27.0-32.0 [facility] Comment on above: Performed By: #### L 500.2500, L100.0500 ####[facility] [address] [place], [address] MCHC (RBC) [Mass/Vol] 35.8 g/dL Normal 32-36 [facility] Comment on above: Performed By: #### L 500.2500, L100.0500 ####[facility] [address] [place], [address] MCV (RBC) [Entitic vol] 92.3 fL Normal 81-99 [facility] Comment on above: Performed By: #### L 500.2500, L100.0500 ####[facility] [address] [place], [address] Platelet mean volume (Bld) [Entitic vol] 10.8 fL Normal 6.2-12.0 [facility] Comment on above: Performed By: #### L 500.2500, L100.0500 ####[facility] [address] [place], [address] Platelets (Bld) [#/Vol] 196 10*3/uL Normal 150-450 [facility] Comment on above: Performed By: #### L 500.2500, L100.0500 ####[facility] [address] [place], [address] RBC (Bld) [#/Vol] 2.97 10*6/uL Low 4.2-5.4 [facility] Comment on above: Performed By: #### L 500.2500, L100.0500 ####[facility] [address] [place], [address] RDW SD 41.6 fl Normal 35.1-43.9 [facility] Comment on above: Performed By: #### L 500.2500, L100.0500 ####[facility] [address] [place], [address] WBC (Bld) [#/Vol] 7.0 10*3/uL Normal 4.4-11.0 [facility] Comment on above: Performed By: #### L 500.2500, L100.0500 ####[facility] [address] [place], [address] Consultation - Nephrologyon 12-05-2024 Consultation - Nephrology Normal [facility] Erythrocyte distribution wid th ratioOrdered By: Alix Hudson on 12-05-2024 Erythrocyte distribution width (RBC) [Ratio] 12.4 % 11.6-14.6 [facility] Erythrocyte distribution wid th standard deviationOrdered By: Alix Hudson on 12-05-2024 Erythrocyte distribution width (RBC) [Ratio] 41.6 fl 35.1-43.9 [facility] Hematocrit Auto (Bld) [Volum e fraction]Ordered By: Alix Hudson on 12-05-2024 Hematocrit (Bld) [Volume fraction] 27.4 % Low 37-47 [facility] Hemoglobin measurementOrdere d By: Alix Hudson on 12-05-2024 Hemoglobin (Bld) [Mass/Vol] 9.8 g/dL Low 12.0-15.0 [facility] MCV (mean corpuscular volume ) determinationOrdered By: Alix Hudson on 12-05-2024 MCV (RBC) [Entitic vol] 92.3 fL 81-99 [facility] Mean corpuscular hemoglobin (MCH) determinationOrdered By: Alix Hudson on 12-05-2024 MCH (RBC) [Entitic mass] 33.0 pg High 27.0-32.0 [facility] Mean corpuscular hemoglobin concentration (MCHC) determinationOrdered By: Alix Hudson on 12-05-2024 MCHC (RBC) [Mass/Vol] 35.8 g/dL 32-36 [facility] Mean platelet volume determi nationOrdered By: Alix Hudson on 12-05-2024 Platelet mean volume (Bld) [Entitic vol] 10.8 fL 6.2-12.0 [facility] Platelet countOrdered By: Priya Hudson on 12-05-2024 Platelets (Bld) [#/Vol] 196 10*3/uL 150-450 [facility] RBC Auto (Bld) [#/Vol]Ordere d By: Alix Hudson on 12-05-2024 RBC (Bld) [#/Vol] 2.97 10*6/uL Low 4.2-5.4 [facility] White blood cell (WBC) count Ordered By: Alix Hudson on 12-05-2024 WBC (Bld) [#/Vol] 7.0 10*3/uL 4.4-11.0 [facility] Absolute lymphocyte countOrd ered By: Darnell Vera on 12-04-2024 Lymphocytes Auto (Unsp spec) [#/Vol] 0.53 10*3/uL Low 0.83-4.51 [facility] Absolute neutrophil countOrd ered By: Darnell Vera on 12-04-2024 Neutrophils (Bld) [#/Vol] 6.6 10*3/uL 2.0-7.7 [facility] Automated lymphocyte count a s percentage of total leukocytesOrdered By: Darnell Vera on 12-04-2024 Lymphocytes/100 WBC Auto (Unsp spec) 6.8 % Low 19-41 [facility] Basophil percentageOrdered B y: Darnell Vera on 12-04-2024 Basophils/100 WBC (Bld) 0.3 % 0-1 [facility] Bilirubin, totalOrdered By: Darnell Juarezo on 12-04-2024 Bilirubin [Mass/Vol] 0.57 mg/dL 0.00-1.30 [facility] CBC W/Diff, Automatedon Absolute Lymph 0.53 X10 3/uL Low 0.83-4.51 [facility] Comment on above: Performed By: #### L 500.4050, L100.0100, L500.4100, L501.2300 ####[facility] [address] [place], [address] Absolute Neut 6.6 X10 3/uL Normal 2.0-7.7 [facility] Comment on above: Performed By: #### L 500.4050, L100.0100, L500.4100, L501.2300 ####[facility] [address] [place], [address] Basophils/100 WBC (Bld) 0.3 % Normal 0-1 [facility] Comment on above: Performed By: #### L 500.4050, L100.0100, L500.4100, L501.2300 ####[facility] [address] [place], [address] Eosinophils/100 WBC (Bld) 0.4 % Normal 0-5 [facility] Comment on above: Performed By: #### L 500.4050, L100.0100, L500.4100, L501.2300 ####[facility] [address] [place], [address] Erythrocyte distribution width (RBC) [Ratio] 12.5 % Normal 11.6-14.6 [facility] Comment on above: Performed By: #### L 500.4050, L100.0100, L500.4100, L501.2300 ####[facility] [address] [place], [address] Hematocrit (Bld) [Volume fraction] 26.0 % Low 37-47 [facility] Comment on above: Performed By: #### L 500.4050, L100.0100, L500.4100, L501.2300 ####[facility] [address] [place], [address] Hemoglobin (Bld) [Mass/Vol] 9.4 g/dL Low 12.0-15.0 [facility] Comment on above: Performed By: #### L 500.4050, L100.0100, L500.4100, L501.2300 ####[facility] [address] [place], [address] IG% 0.600 Normal 0.0-0.9 [facility] Comment on above: Result Comment: IG% - Immature Granulocytes (promyelocytes, myelocytes andmetamyelocytes) > 1% indicates that a LEFT SHIFT is Present. Performed By: #### L 500.4050, L100.0100, L500.4100, L501.2300 ####[facility] [address] [place], [address] Lymphocytes/100 WBC (Bld) 6.8 % Low 19-41 [facility] Comment on above: Performed By: #### L 500.4050, L100.0100, L500.4100, L501.2300 ####[facility] [address] [place], [address] MCH (RBC) [Entitic mass] 33.2 pg High 27.0-32.0 [facility] Comment on above: Performed By: #### L 500.4050, L100.0100, L500.4100, L501.2300 ####[facility] [address] [place], [address] MCHC (RBC) [Mass/Vol] 36.2 g/dL High 32-36 [facility] Comment on above: Performed By: #### L 500.4050, L100.0100, L500.4100, L501.2300 ####[facility] [address] [place], [address] MCV (RBC) [Entitic vol] 91.9 fL Normal 81-99 [facility] Comment on above: Performed By: #### L 500.4050, L100.0100, L500.4100, L501.2300 ####[facility] [address] [place], [address] Monocytes/100 WBC (Bld) 7.5 % Normal 0-10 [facility] Comment on above: Performed By: #### L 500.4050, L100.0100, L500.4100, L501.2300 ####[facility] [address] [place], [address] Neutrophils/100 WBC (Bld) 84.4 % High 47-70 [facility] Comment on above: Performed By: #### L 500.4050, L100.0100, L500.4100, L501.2300 ####[facility] [address] [place], [address] Nucleated RBC (Bld) [#/Vol] 0 10*3/uL Normal 0-5 [facility] Comment on above: Performed By: #### L 500.4050, L100.0100, L500.4100, L501.2300 ####[facility] [address] [place], [address] Platelet mean volume (Bld) [Entitic vol] 9.8 fL Normal 6.2-12.0 [facility] Comment on above: Performed By: #### L 500.4050, L100.0100, L500.4100, L501.2300 ####[facility] [address] [place], [address] Platelets (Bld) [#/Vol] 177 10*3/uL Normal 150-450 [facility] Comment on above: Performed By: #### L 500.4050, L100.0100, L500.4100, L501.2300 ####[facility] [address] [place], [address] RBC (Bld) [#/Vol] 2.83 10*6/uL Low 4.2-5.4 [facility] Comment on above: Performed By: #### L 500.4050, L100.0100, L500.4100, L501.2300 ####[facility] [address] [place], [address] RDW SD 42.1 fl Normal 35.1-43.9 [facility] Comment on above: Performed By: #### L 500.4050, L100.0100, L500.4100, L501.2300 ####[facility] [address] [place], [address] WBC (Bld) [#/Vol] 7.8 10*3/uL Normal 4.4-11.0 [facility] Comment on above: Performed By: #### L 500.4050, L100.0100, L500.4100, L501.2300 ####[facility] [address] [place], [address] Calculated very low density lipoprotein (VLDL) cholesterol measurementOrdered By: Darnell Vera on 12-04-2024 Calculated very low density lipoprotein (VLDL) cholesterol measurement 9 mg/dL 5-40 [facility] Comprehensive Metabolic Prof ilon 12-04-2024 Albumin [Mass/Vol] 3.2 g/dL Low 3.4-4.8 [facility] Comment on above: Performed By: #### L 500.4050, L100.0100, L500.4100, L501.2300 ####[facility] [address] [place], [address] Albumin/Globulin [Mass ratio] 1.8 {ratio} Normal 0.9-2.4 [facility] Comment on above: Performed By: #### L 500.4050, L100.0100, L500.4100, L501.2300 ####[facility] [address] [place], [address] ALK PHOS 90 U/L Normal 35-104 [facility] Comment on above: Performed By: #### L 500.4050, L100.0100, L500.4100, L501.2300 ####[facility] [address] [place], [address] ALT [Catalytic activity/Vol] 239 U/L High <=34 [facility] Comment on above: Performed By: #### L 500.4050, L100.0100, L500.4100, L501.2300 ####[facility] [address] [place], [address] AST [Catalytic activity/Vol] 99 U/L High <=31 [facility] Comment on above: Performed By: #### L 500.4050, L100.0100, L500.4100, L501.2300 ####[facility] [address] [place], [address] Bilirubin [Mass/Vol] 0.57 mg/dL Normal 0.00-1.30 [facility] Comment on above: Performed By: #### L 500.4050, L100.0100, L500.4100, L501.2300 ####[facility] [address] [place], [address] BUN/CRE 20.2 RATIO High 10-20 [facility] Comment on above: Performed By: #### L 500.4050, L100.0100, L500.4100, L501.2300 ####[facility] [address] [place], [address] Calcium [Mass/Vol] 8.2 mg/dL Normal 7.6-11.0 [facility] Comment on above: Performed By: #### L 500.4050, L100.0100, L500.4100, L501.2300 ####[facility] [address] [place], [address] Chloride [Moles/Vol] 100 mmol/L Normal 98-108 [facility] Comment on above: Performed By: #### L 500.4050, L100.0100, L500.4100, L501.2300 ####[facility] [address] [place], [address] CO2 [Moles/Vol] 21.1 mmol/L Normal 21.0-32.0 [facility] Comment on above: Performed By: #### L 500.4050, L100.0100, L500.4100, L501.2300 ####[facility] [address] [place], [address] Creatinine [Mass/Vol] 0.63 mg/dL Low 0.70-1.20 [facility] Comment on above: Performed By: #### L 500.4050, L100.0100, L500.4100, L501.2300 ####[facility] [address] [place], [address] ECRCL 39.62 ml/min Low 50-250 [facility] Comment on above: Performed By: #### L 500.4050, L100.0100, L500.4100, L501.2300 ####[facility] [address] [place], [address] GAP 9 Normal 5-15 [facility] Comment on above: Performed By: #### L 500.4050, L100.0100, L500.4100, L501.2300 ####[facility] [address] [place], [address] GFR/1.73 sq M.predicted among non-blacks MDRD (S/P/Bld) [Vol rate/Area] 89 mL/min/{1.73_m2} Normal >60 [facility] Comment on above: Result Comment: mL/m in/1.73m2 CKD-EPI Creatinine Equation (2020) Performed By: #### L 500.4050, L100.0100, L500.4100, L501.2300 ####[facility] [address] [place], [address] Globulin (S) [Mass/Vol] 1.8 g/dL Low 2.2-4.2 [facility] Comment on above: Performed By: #### L 500.4050, L100.0100, L500.4100, L501.2300 ####[facility] [address] [place], [address] Glucose [Mass/Vol] 85 mg/dL Normal 70-99 [facility] Comment on above: Performed By: #### L 500.4050, L100.0100, L500.4100, L501.2300 ####[facility] [address] [place], [address] Potassium [Moles/Vol] 3.7 mmol/L Normal 3.3-5.1 [facility] Comment on above: Performed By: #### L 500.4050, L100.0100, L500.4100, L501.2300 ####[facility] [address] [place], [address] Sodium [Moles/Vol] 130 mmol/L Low 133-145 [facility] Comment on above: Performed By: #### L 500.4050, L100.0100, L500.4100, L501.2300 ####[facility] [address] [place], [address] T PROT 5.0 g/dL Low 5.9-8.4 [facility] Comment on above: Performed By: #### L 500.4050, L100.0100, L500.4100, L501.2300 ####[facility] [address] [place], [address] Urea nitrogen [Mass/Vol] 13 mg/dL Normal 4-19 [facility] Comment on above: Performed By: #### L 500.4050, L100.0100, L500.4100, L501.2300 ####[facility] [address] [place], [address] Eosinophil percentageOrdered By: Darnell Vera on 12-04-2024 Eosinophils/100 WBC (Bld) 0.4 % 0-5 [facility] Folates,Serum (Folic Acid)on 12-04-2024 FOLATES,SERUM 17.50 ng/mL Normal 4.60-34.80 [facility] Comment on above: Result Comment: Hemo lysis, Results will be affected, Requires Recollection. Performed By: #### L 501.9520, L501.5200, L501.9985, L503.0106, L506.0200 ####[facility] [address] [place], [address] Hemoglobin A1con 12-04-2024 HbA1c (Bld) [Mass fraction] 5.1 % Normal <=5.6 [facility] Comment on above: Result Comment: Norm al < 5.7 % Prediabetic 5.7 - 6.4 % Diabetic >or= 6.5 % Please note range changes. Performed By: #### L 501.9520, L501.5200, L501.9985, L503.0106, L506.0200 ####[facility] [address] [place], [address] Immature granulocytes/100 WB C Auto (Bld)Ordered By: Darnell Vera on 12-04-2024 Immature granulocytes/100 WBC (Bld) 0.600 % 0.0-0.9 [facility] Comment on above: IG% - Immature Granu locytes (promyelocytes, myelocytes and metamyelocytes) > 1% indicates that a LEFT SHIFT is Present. LDL calc ser/plasOrdered By: Darnell Vera on 12-04-2024 Cholesterol in LDL [Mass/Vol] 58 mg/dL [facility] Comment on above: Oyotggmtmh=607-508 m g/dL & Higher Gbpw=800 mg/dL or greater Laboratory - Chemistry and C hemistry - challengeOrdered By: Darnell Vera on 12-04-2024 AST [Catalytic activity/Vol] 99 U/L High <32 [facility] Lipid Profileon 12-04-2024 CHOL:HDL 2.19 Normal [facility] Comment on above: Performed By: #### L 500.4050, L100.0100, L500.4100, L501.2300 ####[facility] [address] [place], [address] Cholesterol [Mass/Vol] 124 mg/dL Normal <=200 [facility] Comment on above: Result Comment: Chol esterol level, Desirable <200 mg/dLBorderline high cholesterol 200-239 mg/dLHigh cholesterol >=240 mg/dLRecommendations of the NCEP Adult Treatment Panel for thefollowing risk-cutoff thresholds for the [place] Americanpopulation. Performed By: #### L 500.4050, L100.0100, L500.4100, L501.2300 ####[facility] [address] [place], [address] Cholesterol in HDL [Mass/Vol] 57 mg/dL Normal [facility] Comment on above: Result Comment: Isablea onal Cholesterol Education Program (NCEP) guidelines:<40 mg/dL: Low HDL-cholesterol (major risk factor for CHD)>= 60 mg/dL: High HDL-cholesterol (negative risk factor forCHD)HDL-cholesterol is affected by a number of factors, e.g.smoking, exercise, hormones, sex and age. Performed By: #### L 500.4050, L100.0100, L500.4100, L501.2300 ####[facility] [address] [place], [address] Cholesterol in LDL [Mass/Vol] 58 mg/dL Normal [facility] Comment on above: Result Comment: Bord tssfih=338-883 mg/dL Higher Ykbv=417 mg/dL or greater Performed By: #### L 500.4050, L100.0100, L500.4100, L501.2300 ####[facility] [address] [place], [address] Cholesterol in VLDL [Mass/Vol] 9 mg/dL Normal 5-40 [facility] Comment on above: Performed By: #### L 500.4050, L100.0100, L500.4100, L501.2300 ####[facility] [address] [place], [address] Triglyceride [Mass/Vol] 47 mg/dL Normal [facility] Comment on above: Result Comment: The drugs N-Acetylcysteine and Metamizole may falselydepress this assay.Normal range: <150 mg/dLBorderline High: 150-199 mg/dLHigh: 200-499 mg/dLVery High: >500 mg/dL Performed By: #### L 500.4050, L100.0100, L500.4100, L501.2300 ####[facility] [address] [place], [address] Magnesiumon 12-04-2024 Magnesium [Mass/Vol] 1.9 mg/dL Normal 1.5-2.2 [facility] Comment on above: Performed By: #### L 501.9181, L501.5200, L501.9985, L503.0106, L506.0200 ####[facility] [address] [place], [place], [id number] Monocyte percentageOrdered B y: Darnell Vera on 12-04-2024 Monocytes/100 WBC (Bld) 7.5 % 0-10 [facility] Neutrophil percentageOrdered By: Darnell Vera on 12-04-2024 Neutrophils/100 WBC (Bld) 84.4 % High 47-70 [facility] No Panel InformationOrdered By: Darnell Vera on 12-04-2024 99 U/L High <32 [facility] Nucleated red blood cell per centageOrdered By: Darnell Vera on 12-04-2024 Nucleated RBC/100 WBC (Bld) [Ratio] 0 % 0-5 [facility] Phosphoruson 12-04-2024 Phosphate [Mass/Vol] 3.1 mg/dL Normal 2.7-4.5 [facility] Comment on above: Performed By: #### L 500.4050, L100.0100, L500.4100, L501.2300 ####[facility] [address] [place], [place], [id number] Screening total cholesterol/ high density lipoprotein (HDL) cholesterol ratioOrdered By: Darnell Vera on 12-04-2024 Cholesterol.total/Chol esterol in HDL [Mass ratio] 2.19 {ratio} [facility] Serum globulin measurementOr dered By: Darnell Vera on 12-04-2024 Globulin (S) [Mass/Vol] 1.8 g/dL Low 2.2-4.2 [facility] Serum or plasma alanine oliver otransferase (ALT) measurementOrdered By: Darnell Vera on 12-04-2024 ALT [Catalytic activity/Vol] 239 U/L High <35 [facility] Serum or plasma albumin ena urement (mass/volume)Ordered By: Darnell Vera on 12-04-2024 Albumin [Mass/Vol] 3.2 g/dL Low 3.4-4.8 [facility] Serum or plasma albumin/glob ulin mass ratioOrdered By: Darnell Vera on 12-04-2024 Albumin/Globulin [Mass ratio] 1.8 {ratio} 0.9-2.4 [facility] Serum or plasma alkaline brenna sphatase measurementOrdered By: Darnell Vera on 12-04-2024 ALP [Catalytic activity/Vol] 90 U/L 35-104 [facility] Serum or plasma cholesterol in HDL measurement (mass/volume)Ordered By: Darnell Vera on 12-04-2024 Cholesterol in HDL [Mass/Vol] 57 mg/dL >40 [facility] Comment on above: National Cholesterol Education Program (NCEP) guidelines:<40 mg/dL: Low HDL-cholesterol (major risk factor for CHD)>= 60 mg/dL: High HDL-cholesterol (negative risk factor for CHD)HDL-cholesterol is affected by a number of factors, e.g. smoking, exercise, hormones, sex and age. Serum or plasma cholesterol measurement (mass/volume)Ordered By: Darnell Vera on 12-04-2024 Cholesterol [Mass/Vol] 124 mg/dL <201 [facility] Comment on above: Cholesterol level, D esirable <200 mg/dLBorderline high cholesterol 200-239 mg/dLHigh cholesterol >=240 mg/dLRecommendations of the NCEP Adult Treatment Panel for the following risk-cutoff thresholds for the [place] population. Thyroid Stim Hormone (TSH)on 12-04-2024 TSH 1.500 uIU/mL Normal 0.300-4.200 [facility] Comment on above: Performed By: #### L 501.9520, L501.5200, L501.9985, L503.0106, L506.0200 ####[facility] [address] [place], [place], [id number] Total proteinOrdered By: Abbe Vera on 12-04-2024 Protein [Mass/Vol] 5.0 g/dL Low 5.9-8.4 [facility] Triglycerides measurementOrd ered By: Darnell Vera on 12-04-2024 Triglyceride [Mass/Vol] 47 mg/dL <199 [facility] Comment on above: The drugs N-Acetylcy steine and Metamizole may falsely depress this assay. Normal range: <150 mg/dLBorderline High: 150-199 mg/dLHigh: 200-499 mg/dLVery High: >500 mg/dL Vitamin B12on 12-04-2024 Cobalamin (Vitamin B12) [Mass/Vol] 2668 pg/mL High 180-914 [facility] Comment on above: Performed By: #### L 501.9520, L501.5200, L501.9985, L503.0106, L506.0200 ####[facility] [address] [place], [address] Absolute lymphocyte countOrd ered By: Hayden Sadler on 12-03-2024 Lymphocytes Auto (Unsp spec) [#/Vol] 0.66 10*3/uL Low 0.83-4.51 [facility] Absolute neutrophil countOrd ered By: Hayden Sadler on 12-03-2024 Neutrophils (Bld) [#/Vol] 5.9 10*3/uL 2.0-7.7 [facility] Anion gap in Serum or Plasma Ordered By: Hayden Sadler on 12-03-2024 Anion gap [Moles/Vol] 10 mmol/L 5-15 [facility] Automated lymphocyte count a s percentage of total leukocytesOrdered By: Hayden Sadler on 12-03-2024 Lymphocytes/100 WBC Auto (Unsp spec) 9.0 % Low 19-41 [facility] BUN/creatinine ratioOrdered By: Hayden Sadler on 12-03-2024 Urea nitrogen/Creatinine [Mass ratio] 22.8 mg/mg High 10-20 [facility] Basophil percentageOrdered B y: Hayden Sadler on 12-03-2024 Basophils/100 WBC (Bld) 0.3 % 0-1 [facility] Bilirubin Test strip Ql (U)O rdered By: Hayden Sadler on 12-03-2024 Bilirubin Ql (U) Negative Negative [facility] Bilirubin, totalOrdered By: Hayden Sadler on 12-03-2024 Bilirubin [Mass/Vol] 0.65 mg/dL 0.00-1.30 [facility] CBC W/Diff, Automatedon 06-3 0-2025 Absolute Lymph 0.66 X10 3/uL Low 0.83-4.51 [facility] Comment on above: Performed By: #### L 500.4050, L100.0100, L501.2450 ####[facility] [address] [place], [address] Absolute Neut 5.9 X10 3/uL Normal 2.0-7.7 [facility] Comment on above: Performed By: #### L 500.4050, L100.0100, L501.2450 ####[facility] [address] [place], [address] Basophils/100 WBC (Bld) 0.3 % Normal 0-1 [facility] Comment on above: Performed By: #### L 500.4050, L100.0100, L501.2450 ####[facility] [address] [place], [address] Eosinophils/100 WBC (Bld) 0.1 % Normal 0-5 [facility] Comment on above: Performed By: #### L 500.4050, L100.0100, L501.2450 ####[facility] [address] [place], [address] Erythrocyte distribution width (RBC) [Ratio] 12.6 % Normal 11.6-14.6 [facility] Comment on above: Performed By: #### L 500.4050, L100.0100, L501.2450 ####[facility] [address] [place], [address] Hematocrit (Bld) [Volume fraction] 28.2 % Low 37-47 [facility] Comment on above: Performed By: #### L 500.4050, L100.0100, L501.2450 ####[facility] [address] [place], [address] Hemoglobin (Bld) [Mass/Vol] 10.0 g/dL Low 12.0-15.0 [facility] Comment on above: Performed By: #### L 500.4050, L100.0100, L501.2450 ####[facility] [address] [place], [address] IG% 0.700 Normal 0.0-0.9 [facility] Comment on above: Result Comment: IG% - Immature Granulocytes (promyelocytes, myelocytes andmetamyelocytes) > 1% indicates that a LEFT SHIFT is Present. Performed By: #### L 500.4050, L100.0100, L501.2450 ####[facility] [address] [place], [address] Lymphocytes/100 WBC (Bld) 9.0 % Low 19-41 [facility] Comment on above: Performed By: #### L 500.4050, L100.0100, L501.2450 ####[facility] [address] [place], [address] MCH (RBC) [Entitic mass] 32.9 pg High 27.0-32.0 [facility] Comment on above: Performed By: #### L 500.4050, L100.0100, L501.2450 ####[facility] [address] [place], [address] MCHC (RBC) [Mass/Vol] 35.5 g/dL Normal 32-36 [facility] Comment on above: Performed By: #### L 500.4050, L100.0100, L501.2450 ####[facility] [address] [place], [address] MCV (RBC) [Entitic vol] 92.8 fL Normal 81-99 [facility] Comment on above: Performed By: #### L 500.4050, L100.0100, L501.2450 ####[facility] [address] [place], [address] Monocytes/100 WBC (Bld) 9.6 % Normal 0-10 [facility] Comment on above: Performed By: #### L 500.4050, L100.0100, L501.2450 ####[facility] [address] [place], [address] Neutrophils/100 WBC (Bld) 80.3 % High 47-70 [facility] Comment on above: Performed By: #### L 500.4050, L100.0100, L501.2450 ####[facility] [address] [place], [address] Nucleated RBC (Bld) [#/Vol] 0 10*3/uL Normal 0-5 [facility] Comment on above: Performed By: #### L 500.4050, L100.0100, L501.2450 ####[facility] [address] [place], [address] Platelet mean volume (Bld) [Entitic vol] 10.2 fL Normal 6.2-12.0 [facility] Comment on above: Performed By: #### L 500.4050, L100.0100, L501.2450 ####[facility] [address] [place], [address] Platelets (Bld) [#/Vol] 197 10*3/uL Normal 150-450 [facility] Comment on above: Performed By: #### L 500.4050, L100.0100, L501.2450 ####[facility] [address] [place], [address] RBC (Bld) [#/Vol] 3.04 10*6/uL Low 4.2-5.4 [facility] Comment on above: Performed By: #### L 500.4050, L100.0100, L501.2450 ####[facility] [address] [place], [address] RDW SD 43.1 fl Normal 35.1-43.9 [facility] Comment on above: Performed By: #### L 500.4050, L100.0100, L501.2450 ####[facility] [address] [place], [address] WBC (Bld) [#/Vol] 7.3 10*3/uL Normal 4.4-11.0 [facility] Comment on above: Performed By: #### L 500.4050, L100.0100, L501.2450 ####[facility] [address] [place], [address] Carbon dioxide, total [Moles /volume] in Central venous bloodOrdered By: Hayden Sadler on 12-03-2024 CO2 [Moles/Vol] 22.8 mmol/L 21.0-32.0 [facility] Chloride assayOrdered By: Delfin Sadler on 12-03-2024 Chloride [Moles/Vol] 100 mmol/L 98-108 [facility] Comprehensive Metabolic Prof ilon 12-03-2024 Albumin [Mass/Vol] 3.7 g/dL Normal 3.4-4.8 [facility] Comment on above: Performed By: #### L 500.4050, L100.0100, L501.2450 ####[facility] [address] [place], [address] Albumin/Globulin [Mass ratio] 1.8 {ratio} Normal 0.9-2.4 [facility] Comment on above: Performed By: #### L 500.4050, L100.0100, L501.2450 ####[facility] [address] [place], [address] ALK PHOS 104 U/L Normal 35-104 [facility] Comment on above: Performed By: #### L 500.4050, L100.0100, L501.2450 ####[facility] [address] [place], [address] ALT [Catalytic activity/Vol] 282 U/L High <=34 [facility] Comment on above: Performed By: #### L 500.4050, L100.0100, L501.2450 ####[facility] [address] [place], [address] AST [Catalytic activity/Vol] 104 U/L High <=31 [facility] Comment on above: Performed By: #### L 500.4050, L100.0100, L501.2450 ####[facility] [address] [place], [address] Bilirubin [Mass/Vol] 0.65 mg/dL Normal 0.00-1.30 [facility] Comment on above: Performed By: #### L 500.4050, L100.0100, L501.2450 ####[facility] [address] [place], [address] BUN/CRE 22.8 RATIO High 10-20 [facility] Comment on above: Performed By: #### L 500.4050, L100.0100, L501.2450 ####[facility] [address] [place], [address] Calcium [Mass/Vol] 8.8 mg/dL Normal 7.6-11.0 [facility] Comment on above: Performed By: #### L 500.4050, L100.0100, L501.2450 ####[facility] [address] [place], [address] Chloride [Moles/Vol] 100 mmol/L Normal 98-108 [facility] Comment on above: Performed By: #### L 500.4050, L100.0100, L501.2450 ####[facility] [address] [place], [address] CO2 [Moles/Vol] 22.8 mmol/L Normal 21.0-32.0 [facility] Comment on above: Performed By: #### L 500.4050, L100.0100, L501.2450 ####[facility] [address] [place], [address] Creatinine [Mass/Vol] 0.67 mg/dL Low 0.70-1.20 [facility] Comment on above: Performed By: #### L 500.4050, L100.0100, L501.2450 ####[facility] [address] [place], [address] ECRCL 39.62 ml/min Low 50-250 [facility] Comment on above: Performed By: #### L 500.4050, L100.0100, L501.2450 ####[facility] [address] [place], [address] GAP 10 Normal 5-15 [facility] Comment on above: Performed By: #### L 500.4050, L100.0100, L501.2450 ####[facility] [address] [place], [address] GFR/1.73 sq M.predicted among non-blacks MDRD (S/P/Bld) [Vol rate/Area] 88 mL/min/{1.73_m2} Normal >60 [facility] Comment on above: Result Comment: mL/m in/1.73m2 CKD-EPI Creatinine Equation (2020) Performed By: #### L 500.4050, L100.0100, L501.2450 ####[facility] [address] [place], [address] Globulin (S) [Mass/Vol] 2.1 g/dL Low 2.2-4.2 [facility] Comment on above: Performed By: #### L 500.4050, L100.0100, L501.2450 ####[facility] [address] [place], [address] Glucose [Mass/Vol] 106 mg/dL High 70-99 [facility] Comment on above: Performed By: #### L 500.4050, L100.0100, L501.2450 ####[facility] [address] [place], [address] Potassium [Moles/Vol] 3.7 mmol/L Normal 3.3-5.1 [facility] Comment on above: Performed By: #### L 500.4050, L100.0100, L501.2450 ####[facility] [address] [place], [address] Sodium [Moles/Vol] 133 mmol/L Normal 133-145 [facility] Comment on above: Performed By: #### L 500.4050, L100.0100, L501.2450 ####[facility] [address] [place], [address] T PROT 5.8 g/dL Low 5.9-8.4 [facility] Comment on above: Performed By: #### L 500.4050, L100.0100, L501.2450 ####[facility] [address] [place], [address] Urea nitrogen [Mass/Vol] 15 mg/dL Normal 4-19 [facility] Comment on above: Performed By: #### L 500.4050, L100.0100, L501.2450 ####[facility] [address] [place], [address] Emergency Department Summary on 12-03-2024 Emergency Department Summary Normal [facility] Eosinophil percentageOrdered By: Hayden Sadler on 12-03-2024 Eosinophils/100 WBC (Bld) 0.1 % 0-5 [facility] Erythrocyte distribution wid th ratioOrdered By: Hayden Sadler on 12-03-2024 Erythrocyte distribution width (RBC) [Ratio] 12.6 % 11.6-14.6 [facility] Erythrocyte distribution wid th standard deviationOrdered By: Hayden Sadler on 12-03-2024 Erythrocyte distribution width (RBC) [Ratio] 43.1 fl 35.1-43.9 [facility] Folate [Mass/volume] in Seru m or PlasmaOrdered By: Darnell Vera on 12-03-2024 Folate [Mass/Vol] 17.50 ng/mL 4.60-34.80 [facility] Comment on above: Hemolysis, Results w ill be affected, Requires Recollection. Glomerular filtration rate ( GFR) estimation/1.73 sq m using serum, plasma, or whole bOrdered By: Hayden Sadler on 12-03-2024 GFR/1.73 sq M.predicted among non-blacks MDRD (S/P/Bld) [Vol rate/Area] 88 mL/min/{1.73_m2} >60 [facility] Comment on above: mL/min/1.73m2 CKD-EP I Creatinine Equation (2020) H AND P Exam - [facility] 12-03-2024 H&P Exam - Hospitalist Normal [facility] Hematocrit Auto (Bld) [Volum e fraction]Ordered By: Hayden Sadler on 12-03-2024 Hematocrit (Bld) [Volume fraction] 28.2 % Low 37-47 [facility] Hemoglobin A1c percentageOrd ered By: Darnlel Vera on 12-03-2024 HbA1c (Bld) [Mass fraction] 5.1 % <5.7 [facility] Comment on above: Normal < 5.7 % Predi abetic 5.7 - 6.4 % Diabetic >or= 6.5 % Please note range changes. Hemoglobin measurementOrdere d By: Hayden Sadler on 12-03-2024 Hemoglobin (Bld) [Mass/Vol] 10.0 g/dL Low 12.0-15.0 [facility] Immature granulocytes/100 WB C Auto (Bld)Ordered By: Hayden Sadler on 12-03-2024 Immature granulocytes/100 WBC (Bld) 0.700 % 0.0-0.9 [facility] Comment on above: IG% - Immature Granu locytes (promyelocytes, myelocytes and metamyelocytes) > 1% indicates that a LEFT SHIFT is Present. Ketones Test strip Ql (U)Ord ered By: Hayden Sadler on 12-03-2024 Ketones Ql (U) 5 mg/dl High Negative [facility] Laboratory - Chemistry and C hemistry - challengeOrdered By: Hayden Sadler on 12-03-2024 AST [Catalytic activity/Vol] 104 U/L High <32 [facility] Lipaseon 12-03-2024 Lipase [Catalytic activity/Vol] 68 U/L Normal 13-75 [facility] Comment on above: Result Comment: Merissa bah note:LIPASE revised reference range effective 22.New Lipase methodology. Expected to produce lower valuesthan the previous assay method.NEW Reference Range: 13 - 75 U/L Performed By: #### L 500.4050, L100.0100, L501.2450 ####[facility] [address] [place], [address] Lipase measurementOrdered By : Hayden Sadler on 12-03-2024 Lipase [Catalytic activity/Vol] 68 U/L 13-75 [facility] Comment on above: Please note:LIPASE r evised reference range effective 22. New Lipase methodology. Expected to produce lower values than the previous assay method. NEW Reference Range: 13 - 75 U/L MCV (mean corpuscular volume ) determinationOrdered By: Hayden Sadler on 12-03-2024 MCV (RBC) [Entitic vol] 92.8 fL 81-99 [facility] Magnesium measurement (mass/ volume)Ordered By: Darnell Vera on 12-03-2024 Magnesium (Unsp spec) [Mass/Vol] 1.9 mg/dL 1.5-2.2 [facility] Mean corpuscular hemoglobin (MCH) determinationOrdered By: Hayden Sadler on 12-03-2024 MCH (RBC) [Entitic mass] 32.9 pg High 27.0-32.0 [facility] Mean corpuscular hemoglobin concentration (MCHC) determinationOrdered By: Hayden Sadler on 12-03-2024 MCHC (RBC) [Mass/Vol] 35.5 g/dL 32-36 [facility] Mean platelet volume determi nationOrdered By: Hayden Sadler on 12-03-2024 Platelet mean volume (Bld) [Entitic vol] 10.2 fL 6.2-12.0 [facility] Microscopic analysis of urin e for red blood cells (RBC)Ordered By: Hayden Sadler on 12-03-2024 Microscopic analysis of urine for red blood cells (RBC) 0-5 SEEN /hpf 0-5 [facility] Monocyte percentageOrdered B y: Hayden Sadler on 12-03-2024 Monocytes/100 WBC (Bld) 9.6 % 0-10 [facility] Mucus LM Ql (Urine sed)Order ed By: Hayden Sadler on 12-03-2024 Mucus Ql (Urine sed) 0 SEEN /hpf [facility] Neutrophil percentageOrdered By: Hayden Sadler on 12-03-2024 Neutrophils/100 WBC (Bld) 80.3 % High 47-70 [facility] Nitrite Test strip Ql (U)Ord ered By: Hayden Sadler on 12-03-2024 Nitrite Ql (U) Positive High Negative [facility] Nucleated red blood cell per centageOrdered By: Hayden Sadler on 12-03-2024 Nucleated RBC/100 WBC (Bld) [Ratio] 0 % 0-5 [facility] Platelet countOrdered By: Delfin Sadler on 12-03-2024 Platelets (Bld) [#/Vol] 197 10*3/uL 150-450 [facility] Potassium measurement (mass/ volume)Ordered By: Hayden Sadler on 12-03-2024 Potassium (Unsp spec) [Mass/Vol] 3.7 mmol/L 3.3-5.1 [facility] Protein Test strip Ql (U)Ord ered By: Hayden Sadler on 12-03-2024 Protein Ql (U) 15 mg/dl High Negative [facility] RBC Auto (Bld) [#/Vol]Ordere d By: Hayden Sadler on 12-03-2024 RBC (Bld) [#/Vol] 3.04 10*6/uL Low 4.2-5.4 [facility] Serum creatinine measurement (mass/volume)Ordered By: Hayden Sadler on 12-03-2024 Creatinine [Mass/Vol] 0.67 mg/dL Low 0.70-1.20 [facility] Serum globulin measurementOr dered By: Hayden Sadler on 12-03-2024 Globulin (S) [Mass/Vol] 2.1 g/dL Low 2.2-4.2 [facility] Serum glucose measurement (m ass/volume)Ordered By: Hayden Sadler on 12-03-2024 Glucose [Mass/Vol] 106 mg/dL High 70-99 [facility] Serum or plasma alanine oliver otransferase (ALT) measurementOrdered By: Hayden Sadler on 12-03-2024 ALT [Catalytic activity/Vol] 282 U/L High <35 [facility] Serum or plasma albumin ena urement (mass/volume)Ordered By: Hayden Sadler on 12-03-2024 Albumin [Mass/Vol] 3.7 g/dL 3.4-4.8 [facility] Serum or plasma albumin/glob ulin mass ratioOrdered By: Hayden Sadler on 12-03-2024 Albumin/Globulin [Mass ratio] 1.8 {ratio} 0.9-2.4 [facility] Serum or plasma alkaline brenna sphatase measurementOrdered By: Hayden Sadler on 12-03-2024 ALP [Catalytic activity/Vol] 104 U/L 35-104 [facility] Serum or plasma calcium ena urement (mass/volume)Ordered By: Hayden Sadler on 12-03-2024 Calcium [Mass/Vol] 8.8 mg/dL 7.6-11.0 [facility] Serum or plasma urea nitroge n measurement (mass/volume)Ordered By: Hayden Sadler on 12-03-2024 Urea nitrogen [Mass/Vol] 15 mg/dL 4-19 [facility] Sodium levelOrdered By: Naomi Sadler on 12-03-2024 Sodium [Moles/Vol] 133 mmol/L 133-145 [facility] Squamous epithelial cells de tection in urine sediment by light microscopyOrdered By: Hayden Sadler on 12-03-2024 Epithelial cells.squamous LM Ql (Urine sed) 0 SEEN /hpf 5-10 [facility] TSH DL <= 0.005 mIU/L QnOrde red By: Darnell Vera on 12-03-2024 TSH Qn 1.500 uIU/mL 0.300-4.200 [facility] Total proteinOrdered By: Sarita Sadler on 12-03-2024 Protein [Mass/Vol] 5.8 g/dL Low 5.9-8.4 [facility] Urinalysis, Completeon 12-03 BACTERIA 3+ /hpf Normal None Seen [facility] Comment on above: Order Comment: CLEAN CATCH Performed By: #### L 400.0001 ####[facility] [address] [place], [address] RBC 0-5 SEEN Normal 0-5 [facility] Comment on above: Order Comment: CLEAN CATCH Performed By: #### L 400.0001 ####[facility] [address] [place], [address] WBC 0-5 SEEN Normal 0-5 [facility] Comment on above: Order Comment: CLEAN CATCH Performed By: #### L 400.0001 ####[facility] [address] [place], [address] EPI,SQUAMOUS 0 SEEN Normal 5-10 [facility] Comment on above: Order Comment: CLEAN CATCH Performed By: #### L 400.0001 ####[facility] [address] [place], [address] Mucus Ql (Urine sed) 0 SEEN Normal [facility] Comment on above: Order Comment: CLEAN CATCH Performed By: #### L 400.0001 ####[facility] [address] [place], [address] Urine clarityOrdered By: Sarita Sadler on 12-03-2024 Clarity (U) Clear Clear [facility] Urine color determinationOrd ered By: Hayden Sadler on 12-03-2024 Color (U) Straw Yellow [facility] Urine cultureOrdered By: Sarita Sadler on 12-03-2024 Bacteria identified Cx Nom (U) Pseudomonas aeruginosa Abnormal [facility] Bacteria identified Cx Nom (U) Enterococcus faecalis Abnormal [facility] Urine glucose detectionOrder ed By: Hayden Sadler on 12-03-2024 Glucose Ql (U) Normal mg/dl Normal [facility] Urine leukocyte esterase det ection by dipstickOrdered By: Hayden Sadler on 12-03-2024 Leukocyte esterase Test strip Ql (U) Negative Negative [facility] Urine pHOrdered By: Hayden briscoe on 12-03-2024 pH (U) 7.0 [pH] 5.0 - 8.0 [facility] Urine sediment bacteria coun t by microscopy (number/high power field)Ordered By: Hayden Sadler on 12-03-2024 Bacteria LM.HPF (Urine sed) [#/Area] 3 /[HPF] None Seen [facility] Urine specific gravity measu rementOrdered By: Hayden Sadler on 12-03-2024 Specific gravity (U) [Rel density] 1.010 1.002-1.030 [facility] Urine urobilinogen measureme ntOrdered By: Hayden Sadler on 12-03-2024 Urobilinogen Ql (U) Normal mg/dl Normal [facility] Vitamin B12 ser/plasOrdered By: Darnell Vera on 12-03-2024 Cobalamin (Vitamin B12) [Mass/Vol] 2668 pg/mL High 180-914 [facility] White blood cell (WBC) count Ordered By: Hayden Sadler on 12-03-2024 WBC (Bld) [#/Vol] 7.3 10*3/uL 4.4-11.0 [facility] White blood cell countOrdere d By: Hayden Sadler on 12-03-2024 White blood cell count 0-5 SEEN /hpf 0-5 [facility] Anion gap in Serum or Plasma Ordered By: Jo-Ann Arias on 11-29-2024 Anion gap [Moles/Vol] 10 mmol/L 5-15 [facility] BUN/creatinine ratioOrdered By: Jo-Ann Arias on 11-29-2024 Urea nitrogen/Creatinine [Mass ratio] 12.2 mg/mg 10- [facility] Basic Metabolic Profile (BMP )on 11-29-2024 BUN/CRE 12.2 RATIO Normal - [facility] Comment on above: Performed By: #### L 500.2500 ####[facility] [address] [place], [address] Calcium [Mass/Vol] 8.8 mg/dL Normal 7.6-11.0 [facility] Comment on above: Performed By: #### L 500.2500 ####[facility] [address] [place], [address] Chloride [Moles/Vol] 101 mmol/L Normal 98-108 [facility] Comment on above: Performed By: #### L 500.2500 ####[facility] [address] [place], [address] CO2 [Moles/Vol] 23.5 mmol/L Normal 21.0-32.0 [facility] Comment on above: Performed By: #### L 500.2500 ####[facility] [address] [place], [address] Creatinine [Mass/Vol] 0.88 mg/dL Normal 0.70-1.20 [facility] Comment on above: Performed By: #### L 500.2500 ####[facility] [address] [place], [address] ECRCL 36.01 ml/min Low 50-250 [facility] Comment on above: Performed By: #### L 500.2500 ####[facility] [address] [place], [address] GAP 10 Normal 5-15 [facility] Comment on above: Performed By: #### L 500.2500 ####[facility] [address] [place], [address] GFR/1.73 sq M.predicted among non-blacks MDRD (S/P/Bld) [Vol rate/Area] 66 mL/min/{1.73_m2} Normal >60 [facility] Comment on above: Result Comment: mL/m in/1.73m2 CKD-EPI Creatinine Equation (2020) Performed By: #### L 500.2500 ####[facility] [address] [place], [address] Glucose [Mass/Vol] 114 mg/dL High 70-99 [facility] Comment on above: Performed By: #### L 500.2500 ####[facility] [address] [place], [address] Potassium [Moles/Vol] 4.0 mmol/L Normal 3.3-5.1 [facility] Comment on above: Performed By: #### L 500.2500 ####[facility] [address] [place], [address] Sodium [Moles/Vol] 135 mmol/L Normal 133-145 [facility] Comment on above: Performed By: #### L 500.2500 ####[facility] [address] [place], [address] Urea nitrogen [Mass/Vol] 11 mg/dL Normal 4-19 [facility] Comment on above: Performed By: #### L 500.2500 ####[facility] [address] [place], [address] Carbon dioxide, total [Moles /volume] in Central venous bloodOrdered By: Jo-Ann Arias on 11-29-2024 CO2 [Moles/Vol] 23.5 mmol/L 21.0-32.0 [facility] Chloride assayOrdered By: Morro Arias on 11-29-2024 Chloride [Moles/Vol] 101 mmol/L 98-108 [facility] Glomerular filtration rate ( GFR) estimation/1.73 sq m using serum, plasma, or whole bOrdered By: Jo-Ann Arias on 11-29-2024 GFR/1.73 sq M.predicted among non-blacks MDRD (S/P/Bld) [Vol rate/Area] 66 mL/min/{1.73_m2} >60 [facility] Comment on above: mL/min/1.73m2 CKD-EP I Creatinine Equation (2020) Potassium measurement (mass/ volume)Ordered By: Jo-Ann Arias on 11-29-2024 Potassium (Unsp spec) [Mass/Vol] 4.0 mmol/L 3.3-5.1 [facility] Serum creatinine measurement (mass/volume)Ordered By: Jo-Ann Hsiehjenny on 11-29-2024 Creatinine [Mass/Vol] 0.88 mg/dL 0.70-1.20 [facility] Serum glucose measurement (m ass/volume)Ordered By: Jo-Ann Hsiehjenny on 11-29-2024 Glucose [Mass/Vol] 114 mg/dL High 70-99 [facility] Serum or plasma calcium ena urement (mass/volume)Ordered By: Jo-Ann Hsiehjenny on 11-29-2024 Calcium [Mass/Vol] 8.8 mg/dL 7.6-11.0 [facility] Serum or plasma urea nitroge n measurement (mass/volume)Ordered By: Jo-Ann Hsiehjenny on 11-29-2024 Urea nitrogen [Mass/Vol] 11 mg/dL 4-19 [facility] Sodium levelOrdered By: Jo-Ann Hsiehjenny on 11-29-2024 Sodium [Moles/Vol] 135 mmol/L 133-145 [facility] Basic Metabolic Profile (BMP )on 11-28-2024 BUN/CRE 12.9 RATIO Normal 10-20 [facility] Comment on above: Performed By: #### L 500.2500 ####[facility] [address] [place], [address] Calcium [Mass/Vol] 8.6 mg/dL Normal 7.6-11.0 [facility] Comment on above: Performed By: #### L 500.2500 ####[facility] [address] [place], [address] Chloride [Moles/Vol] 92 mmol/L Low 98-108 [facility] Comment on above: Performed By: #### L 500.2500 ####[facility] [address] [place], [address] CO2 [Moles/Vol] 23.2 mmol/L Normal 21.0-32.0 [facility] Comment on above: Performed By: #### L 500.2500 ####[facility] [address] [place], [address] Creatinine [Mass/Vol] 0.77 mg/dL Normal 0.70-1.20 [facility] Comment on above: Performed By: #### L 500.2500 ####[facility] [address] [place], [address] ECRCL 39.62 ml/min Low 50-250 [facility] Comment on above: Performed By: #### L 500.2500 ####[facility] [address] [place], [address] GAP 10 Normal 5-15 [facility] Comment on above: Performed By: #### L 500.2500 ####[facility] [address] [place], [address] GFR/1.73 sq M.predicted among non-blacks MDRD (S/P/Bld) [Vol rate/Area] 77 mL/min/{1.73_m2} Normal >60 [facility] Comment on above: Result Comment: mL/m in/1.73m2 CKD-EPI Creatinine Equation (2020) Performed By: #### L 500.2500 ####[facility] [address] [place], [address] Glucose [Mass/Vol] 95 mg/dL Normal 70-99 [facility] Comment on above: Performed By: #### L 500.2500 ####[facility] [address] [place], [address] Potassium [Moles/Vol] 3.8 mmol/L Normal 3.3-5.1 [facility] Comment on above: Performed By: #### L 500.2500 ####[facility] [address] [place], [address] Sodium [Moles/Vol] 125 mmol/L Low 133-145 [facility] Comment on above: Performed By: #### L 500.2500 ####[facility] [address] [place], [address] Urea nitrogen [Mass/Vol] 10 mg/dL Normal 4-19 [facility] Comment on above: Performed By: #### L 500.2500 ####[facility] [address] [place], [address] Osmolality urOrdered By: Alyssa Arias on 11-28-2024 Osmolality (U) [Osmolality] 519 mOsm/KG >50 [facility] Comment on above: Normal Urine Referen ce Ranges Random: 50 - 1200 mOsm/kg H20 depending on fluid intake Random: >850 mOsm/kg after 12 hour fluid restriction 24 hour: ~300 - 900 mOsm/kg H2O Osmolality, Serumon 11-29-19 25 OSMOLALITY,SER 281 mOsm/KG Normal 280-301 [facility] Comment on above: Performed By: #### L 501.7300 ####[facility] [address] [place], [address] Osmolality, Urineon 11-29-19 25 OSMOLALITY,UR 519 mOsm/KG Normal [facility] Comment on above: Result Comment: Norm al Urine Reference Ranges Random: 50 - 1200 mOsm/kg H20 depending on fluid intake Random: >850 mOsm/kg after 12 hour fluid restriction 24 hour: 300 - 900 mOsm/kg H2O Performed By: #### L 501.7400 ####[facility] [address] [place], [address] Renal Profileon 11-28-2024 Albumin [Mass/Vol] 3.6 g/dL Normal 3.4-4.8 [facility] Comment on above: Performed By: #### L 500.3600 ####[facility] [address] [place], [address] BUN/CRE 13.0 RATIO Normal 10-20 [facility] Comment on above: Performed By: #### L 500.3600 ####[facility] [address] [place], [address] Calcium [Mass/Vol] 8.9 mg/dL Normal 7.6-11.0 [facility] Comment on above: Performed By: #### L 500.3600 ####[facility] [address] [place], [address] Chloride [Moles/Vol] 92 mmol/L Low 98-108 [facility] Comment on above: Performed By: #### L 500.3600 ####[facility] [address] [place], [address] CO2 [Moles/Vol] 22.8 mmol/L Normal 21.0-32.0 [facility] Comment on above: Performed By: #### L 500.3600 ####[facility] [address] [place], [address] Creatinine [Mass/Vol] 0.75 mg/dL Normal 0.70-1.20 [facility] Comment on above: Performed By: #### L 500.3600 ####[facility] [address] [place], [address] ECRCL 39.62 ml/min Low 50-250 [facility] Comment on above: Performed By: #### L 500.3600 ####[facility] [address] [place], [address] GAP 11 Normal 5-15 [facility] Comment on above: Performed By: #### L 500.3600 ####[facility] [address] [place], [address] GFR/1.73 sq M.predicted among non-blacks MDRD (S/P/Bld) [Vol rate/Area] 80 mL/min/{1.73_m2} Normal >60 [facility] Comment on above: Result Comment: mL/m in/1.73m2 CKD-EPI Creatinine Equation (2020) Performed By: #### L 500.3600 ####[facility] [address] [place], [address] Glucose [Mass/Vol] 94 mg/dL Normal 70-99 [facility] Comment on above: Performed By: #### L 500.3600 ####[facility] [address] [place], [address] Phosphate [Mass/Vol] 3.5 mg/dL Normal 2.7-4.5 [facility] Comment on above: Performed By: #### L 500.3600 ####[facility] [address] [place], [address] Potassium [Moles/Vol] 3.8 mmol/L Normal 3.3-5.1 [facility] Comment on above: Performed By: #### L 500.3600 ####[facility] [address] [place], [address] Sodium [Moles/Vol] 126 mmol/L Low 133-145 [facility] Comment on above: Performed By: #### L 500.3600 ####[facility] [address] [place], [address] Urea nitrogen [Mass/Vol] 10 mg/dL Normal 4-19 [facility] Comment on above: Performed By: #### L 500.3600 ####[facility] [address] [place], [address] Serum or plasma albumin ena urement (mass/volume)Ordered By: Jo-Ann Arias on 11-28-2024 Albumin [Mass/Vol] 3.6 g/dL 3.4-4.8 [facility] Urine Cultureon 11-28-2024 URC Normal [facility] Comment on above: Performed By: #### M 100.2200 ####[facility] [address] [place], [address] Urine Sodiumon 11-28-2024 Sodium (U) [Moles/Vol] 48 mmol/L Normal Not Establ. [facility] Comment on above: Performed By: #### L 501.5500 ####[facility] [address] [place], [address] Urine sodium measurement (mo les/volume)Ordered By: Jo-Ann Hugo on 11-28-2024 Sodium (U) [Moles/Vol] 48 mmol/L Not Establ. [facility] Basic Metabolic Profile (BMP )on 11-27-2024 BUN/CRE 13.8 RATIO Normal 10-20 [facility] Comment on above: Performed By: #### L 100.0500, L500.2500 ####[facility] [address] [place], [address] Calcium [Mass/Vol] 8.7 mg/dL Normal 7.6-11.0 [facility] Comment on above: Performed By: #### L 100.0500, L500.2500 ####[facility] [address] [place], [address] Chloride [Moles/Vol] 93 mmol/L Low 98-108 [facility] Comment on above: Performed By: #### L 100.0500, L500.2500 ####[facility] [address] [place], [address] CO2 [Moles/Vol] 22.7 mmol/L Normal 21.0-32.0 [facility] Comment on above: Performed By: #### L 100.0500, L500.2500 ####[facility] [address] [place], [address] Creatinine [Mass/Vol] 0.77 mg/dL Normal 0.70-1.20 [facility] Comment on above: Performed By: #### L 100.0500, L500.2500 ####[facility] [address] [place], [address] ECRCL 39.62 ml/min Low 50-250 [facility] Comment on above: Performed By: #### L 100.0500, L500.2500 ####[facility] [address] [place], [address] GAP 11 Normal 5-15 [facility] Comment on above: Performed By: #### L 100.0500, L500.2500 ####[facility] [address] [place], [address] GFR/1.73 sq M.predicted among non-blacks MDRD (S/P/Bld) [Vol rate/Area] 78 mL/min/{1.73_m2} Normal >60 [facility] Comment on above: Result Comment: mL/m in/1.73m2 CKD-EPI Creatinine Equation (2020) Performed By: #### L 100.0500, L500.2500 ####[facility] [address] [place], [address] Glucose [Mass/Vol] 93 mg/dL Normal 70-99 [facility] Comment on above: Performed By: #### L 100.0500, L500.2500 ####[facility] [address] [place], [address] Potassium [Moles/Vol] 3.8 mmol/L Normal 3.3-5.1 [facility] Comment on above: Performed By: #### L 100.0500, L500.2500 ####[facility] [address] [place], [address] Sodium [Moles/Vol] 127 mmol/L Low 133-145 [facility] Comment on above: Performed By: #### L 100.0500, L500.2500 ####[facility] [address] [place], [address] Urea nitrogen [Mass/Vol] 11 mg/dL Normal 4-19 [facility] Comment on above: Performed By: #### L 100.0500, L500.2500 ####[facility] [address] [place], [address] CBC-Complete Blood Cnt No Di ffon 11-27-2024 Erythrocyte distribution width (RBC) [Ratio] 12.5 % Normal 11.6-14.6 [facility] Comment on above: Performed By: #### L 100.0500, L500.2500 ####[facility] [address] [place], [address] Hematocrit (Bld) [Volume fraction] 27.3 % Low 37-47 [facility] Comment on above: Performed By: #### L 100.0500, L500.2500 ####[facility] [address] [place], [address] Hemoglobin (Bld) [Mass/Vol] 9.9 g/dL Low 12.0-15.0 [facility] Comment on above: Performed By: #### L 100.0500, L500.2500 ####[facility] [address] [place], [address] MCH (RBC) [Entitic mass] 32.6 pg High 27.0-32.0 [facility] Comment on above: Performed By: #### L 100.0500, L500.2500 ####[facility] [address] [place], [address] MCHC (RBC) [Mass/Vol] 36.3 g/dL High 32-36 [facility] Comment on above: Performed By: #### L 100.0500, L500.2500 ####[facility] [address] [place], [address] MCV (RBC) [Entitic vol] 89.8 fL Normal 81-99 [facility] Comment on above: Performed By: #### L 100.0500, L500.2500 ####[facility] [address] [place], [address] Platelet mean volume (Bld) [Entitic vol] 10.2 fL Normal 6.2-12.0 [facility] Comment on above: Performed By: #### L 100.0500, L500.2500 ####[facility] [address] [place], [address] Platelets (Bld) [#/Vol] 226 10*3/uL Normal 150-450 [facility] Comment on above: Performed By: #### L 100.0500, L500.2500 ####[facility] [address] [place], [address] RBC (Bld) [#/Vol] 3.04 10*6/uL Low 4.2-5.4 [facility] Comment on above: Performed By: #### L 100.0500, L500.2500 ####[facility] [address] [place], [address] RDW SD 40.9 fl Normal 35.1-43.9 [facility] Comment on above: Performed By: #### L 100.0500, L500.2500 ####[facility] [address] [place], [address] WBC (Bld) [#/Vol] 8.6 10*3/uL Normal 4.4-11.0 [facility] Comment on above: Performed By: #### L 100.0500, L500.2500 ####[facility] [address] [place], [address] Discharge Instructionon 11-05 Discharge Instruction Normal [facility] Erythrocyte distribution wid th ratioOrdered By: Jo-Ann Arias on 11-27-2024 Erythrocyte distribution width (RBC) [Ratio] 12.5 % 11.6-14.6 [facility] Erythrocyte distribution wid th standard deviationOrdered By: Jo-Ann Arias on 11-27-2024 Erythrocyte distribution width (RBC) [Ratio] 40.9 fl 35.1-43.9 [facility] Hematocrit Auto (Bld) [Volum e fraction]Ordered By: Jo-Ann Hugo on 11-27-2024 Hematocrit (Bld) [Volume fraction] 27.3 % Low 37-47 [facility] Hemoglobin measurementOrdere d By: Jo-Ann Arias on 11-27-2024 Hemoglobin (Bld) [Mass/Vol] 9.9 g/dL Low 12.0-15.0 [facility] MCV (mean corpuscular volume ) determinationOrdered By: Jo-Ann Arias on 11-27-2024 MCV (RBC) [Entitic vol] 89.8 fL 81-99 [facility] Mean corpuscular hemoglobin (MCH) determinationOrdered By: Jo-Ann Arias on 11-27-2024 MCH (RBC) [Entitic mass] 32.6 pg High 27.0-32.0 [facility] Mean corpuscular hemoglobin concentration (MCHC) determinationOrdered By: Jo-Ann Arias on 11-27-2024 MCHC (RBC) [Mass/Vol] 36.3 g/dL High 32-36 [facility] Mean platelet volume determi nationOrdered By: Jo-Ann Arias on 11-27-2024 Platelet mean volume (Bld) [Entitic vol] 10.2 fL 6.2-12.0 [facility] Platelet countOrdered By: Morro Arias on 11-27-2024 Platelets (Bld) [#/Vol] 226 10*3/uL 150-450 [facility] RBC Auto (Bld) [#/Vol]Ordere d By: Jo-Ann Arias on 11-27-2024 RBC (Bld) [#/Vol] 3.04 10*6/uL Low 4.2-5.4 [facility] White blood cell (WBC) count Ordered By: Jo-Ann Arias on 11-27-2024 WBC (Bld) [#/Vol] 8.6 10*3/uL 4.4-11.0 [facility] Basic Metabolic Profile (BMP )on 11-26-2024 BUN/CRE 12.8 RATIO Normal 10-20 [facility] Comment on above: Performed By: #### L 500.2500 ####[facility] [address] [place], [address] Calcium [Mass/Vol] 8.8 mg/dL Normal 7.6-11.0 [facility] Comment on above: Performed By: #### L 500.2500 ####[facility] [address] [place], [address] Chloride [Moles/Vol] 95 mmol/L Low 98-108 [facility] Comment on above: Performed By: #### L 500.2500 ####[facility] [address] [place], [address] CO2 [Moles/Vol] 22.9 mmol/L Normal 21.0-32.0 [facility] Comment on above: Performed By: #### L 500.2500 ####[facility] [address] [place], [address] Creatinine [Mass/Vol] 0.70 mg/dL Normal 0.70-1.20 [facility] Comment on above: Performed By: #### L 500.2500 ####[facility] [address] [place], [address] ECRCL 39.62 ml/min Low 50-250 [facility] Comment on above: Performed By: #### L 500.2500 ####[facility] [address] [place], [address] GAP 10 Normal 5-15 [facility] Comment on above: Performed By: #### L 500.2500 ####[facility] [address] [place], [address] GFR/1.73 sq M.predicted among non-blacks MDRD (S/P/Bld) [Vol rate/Area] 87 mL/min/{1.73_m2} Normal >60 [facility] Comment on above: Result Comment: mL/m in/1.73m2 CKD-EPI Creatinine Equation (2021) Performed By: #### L 500.2500 ####[facility] [address] [place], [address] Glucose [Mass/Vol] 101 mg/dL High 70-99 [facility] Comment on above: Performed By: #### L 500.2500 ####[facility] [address] [place], [address] Potassium [Moles/Vol] 4.1 mmol/L Normal 3.3-5.1 [facility] Comment on above: Performed By: #### L 500.2500 ####[facility] [address] [place], [address] Sodium [Moles/Vol] 127 mmol/L Low 133-145 [facility] Comment on above: Performed By: #### L 500.2500 ####[facility] [address] [place], [address] Urea nitrogen [Mass/Vol] 9 mg/dL Normal 4-19 [facility] Comment on above: Performed By: #### L 500.2500 ####[facility] [address] [place], [address] Urine cultureOrdered By: Alyssa Arias on 11-25-2024 Bacteria identified Cx Nom (U) Pseudomonas aeruginosa Abnormal [facility] Basic Metabolic Profile (BMP )on 11-24-2024 BUN/CRE 12.6 RATIO Normal 10-20 [facility] Comment on above: Performed By: #### L 500.2500 ####[facility] [address] [place], [address] Calcium [Mass/Vol] 8.7 mg/dL Normal 7.6-11.0 [facility] Comment on above: Performed By: #### L 500.2500 ####[facility] [address] [place], [address] Chloride [Moles/Vol] 97 mmol/L Low 98-108 [facility] Comment on above: Performed By: #### L 500.2500 ####[facility] [address] [place], [address] CO2 [Moles/Vol] 20.7 mmol/L Low 21.0-32.0 [facility] Comment on above: Performed By: #### L 500.2500 ####[facility] [address] [place], [address] Creatinine [Mass/Vol] 0.68 mg/dL Low 0.70-1.20 [facility] Comment on above: Performed By: #### L 500.2500 ####[facility] [address] [place], [address] ECRCL 39.62 ml/min Low 50-250 [facility] Comment on above: Performed By: #### L 500.2500 ####[facility] [address] [place], [address] GAP 9 Normal 5-15 [facility] Comment on above: Performed By: #### L 500.2500 ####[facility] [address] [place], [address] GFR/1.73 sq M.predicted among non-blacks MDRD (S/P/Bld) [Vol rate/Area] 88 mL/min/{1.73_m2} Normal >60 [facility] Comment on above: Result Comment: mL/m in/1.73m2 CKD-EPI Creatinine Equation (2020) Performed By: #### L 500.2500 ####[facility] [address] [place], [address] Glucose [Mass/Vol] 92 mg/dL Normal 70-99 [facility] Comment on above: Performed By: #### L 500.2500 ####[facility] [address] [place], [address] Potassium [Moles/Vol] 3.9 mmol/L Normal 3.3-5.1 [facility] Comment on above: Performed By: #### L 500.2500 ####[facility] [address] [place], [place], [address] Sodium [Moles/Vol] 127 mmol/L Low 133-145 [facility] Comment on above: Performed By: #### L 500.2500 ####[facility] [address] [place], [place], [address] Urea nitrogen [Mass/Vol] 9 mg/dL Normal 4-19 [facility] Comment on above: Performed By: #### L 500.2500 ####[facility] [address] [place], [address] Bilirubin Test strip Ql (U)O rdered By: Jo-Ann Arias on 11-24-2024 Bilirubin Ql (U) Negative Negative [facility] Ketones Test strip Ql (U)Ord ered By: Jo-Ann Arias on 11-24-2024 Ketones Ql (U) Negative Negative [facility] Microscopic analysis of urin e for red blood cells (RBC)Ordered By: Jo-Ann Arias on 11-24-2024 Microscopic analysis of urine for red blood cells (RBC) 0-5 SEEN /hpf 0-5 [facility] Mucus LM Ql (Urine sed)Order ed By: Jo-Ann Arias on 11-24-2024 Mucus Ql (Urine sed) 0 SEEN /hpf [facility] Protein Test strip Ql (U)Ord ered By: Jo-Ann Arias on 11-24-2024 Protein Ql (U) 15 mg/dl High Negative [facility] Squamous epithelial cells de tection in urine sediment by light microscopyOrdered By: Jo-Ann Arias on 11-24-2024 Epithelial cells.squamous LM Ql (Urine sed) 0 SEEN /hpf 5-10 [facility] Urinalysis, Completeon 11-24 RBC 0-5 SEEN Normal 0-5 [facility] Comment on above: Order Comment: MARILYN TER SPECIMEN Performed By: #### L 400.0001 ####[facility] [address] [place], [address] WBC 5-10 SEEN Normal 0-5 [facility] Comment on above: Order Comment: MARILYN TER SPECIMEN Performed By: #### L 400.0001 ####[facility] [address] [place], [address] BILIRUBIN URINE Negative Normal Negative [facility] Comment on above: Order Comment: MARILYN TER SPECIMEN Performed By: #### L 400.0001 ####[facility] [address] [place], [address] GLUCOSE, UR Normal Normal Normal [facility] Comment on above: Order Comment: MARILYN TER SPECIMEN Performed By: #### L 400.0001 ####[facility] [address] [place], [address] KETONE UR Negative Normal Negative [facility] Comment on above: Order Comment: MARILYN TER SPECIMEN Performed By: #### L 400.0001 ####[facility] [address] [place], [address] LEUK ESTERASE 100 /ul Abnormal Negative [facility] Comment on above: Order Comment: MARILYN TER SPECIMEN Performed By: #### L 400.0001 ####[facility] [address] [place], [address] OCCULT BLOOD-UR Negative Normal Negative [facility] Comment on above: Order Comment: MARILYN TER SPECIMEN Performed By: #### L 400.0001 ####[facility] [address] [place], [address] pH UR 6.0 Normal 5.0 - 8.0 [facility] Comment on above: Order Comment: MARILYN TER SPECIMEN Performed By: #### L 400.0001 ####[facility] [address] [place], [address] PROT DIPSTX 15 mg/dl Abnormal Negative [facility] Comment on above: Order Comment: MARILYN TER SPECIMEN Performed By: #### L 400.0001 ####[facility] [address] [place], [address] SP.GR. DIPSTX 1.020 Normal 1.002-1.030 [facility] Comment on above: Order Comment: MARILYN TER SPECIMEN Performed By: #### L 400.0001 ####[facility] [address] [place], [address] UROBILI Normal Normal Normal [facility] Comment on above: Order Comment: MARILYN TER SPECIMEN Performed By: #### L 400.0001 ####[facility] [address] [place], [address] BACTERIA 0 SEEN Normal None Seen [facility] Comment on above: Order Comment: MARILYN TER SPECIMEN Performed By: #### L 400.0001 ####[facility] [address] [place], [address] EPI,SQUAMOUS 0 SEEN Normal 5-10 [facility] Comment on above: Order Comment: MARILYN TER SPECIMEN Performed By: #### L 400.0001 ####[facility] [address] [place], [address] Mucus Ql (Urine sed) 0 SEEN Normal [facility] Comment on above: Order Comment: MARILYN TER SPECIMEN Performed By: #### L 400.0001 ####[facility] [address] [place], [address] Urine clarityOrdered By: Alyssa Arias on 11-24-2024 Clarity (U) Clear Normal Clear [facility] Comment on above: Order Comment: MARILYN TER SPECIMEN Performed By: #### L 400.0001 ####[facility] [address] [place], [address] Urine color determinationOrd ered By: Jo-Ann Arias on 11-24-2024 Color (U) Yellow Normal Yellow [facility] Comment on above: Order Comment: MARILYN TER SPECIMEN Performed By: #### L 400.0001 ####[facility] [address] [place], [place], [address] Urine glucose detectionOrder ed By: Jo-Ann Hugo on 11-24-2024 Glucose Ql (U) Normal mg/dl Normal [facility] Urine leukocyte esterase det ection by dipstickOrdered By: Jo-Ann Hugo on 11-24-2024 Leukocyte esterase Test strip Ql (U) 100 /ul High Negative [facility] Urine nitrite test by dipsti ckOrdered By: Jo-Ann Arias on 11-24-2024 Nitrite Ql (U) Negative Normal Negative [facility] Comment on above: Order Comment: MARILYN TER SPECIMEN Performed By: #### L 400.0001 ####[facility] [address] [place], [address] Urine pHOrdered By: Jo-Ann baker on 11-24-2024 pH (U) 6.0 [pH] 5.0 - 8.0 [facility] Urine sediment bacteria coun t by microscopy (number/high power field)Ordered By: Jo-Ann Arias on 11-24-2024 Bacteria LM.HPF (Urine sed) [#/Area] 0 /[HPF] None Seen [facility] Urine specific gravity measu rementOrdered By: Jo-Ann Arias on 11-24-2024 Specific gravity (U) [Rel density] 1.020 1.002-1.030 [facility] Urine urobilinogen measureme ntOrdered By: Jo-Ann Arias on 11-24-2024 Urobilinogen Ql (U) Normal mg/dl Normal [facility] White blood cell countOrdere d By: Jo-Ann Arias on 11-24-2024 White blood cell count 5-10 SEEN /hpf 0-5 [facility] Basic Metabolic Profile (BMP )on 11-22-2024 BUN/CRE 14.8 RATIO Normal 10-20 [facility] Comment on above: Performed By: #### L 500.2500 ####[facility] [address] [place], [address] Calcium [Mass/Vol] 8.8 mg/dL Normal 7.6-11.0 [facility] Comment on above: Performed By: #### L 500.2500 ####[facility] [address] [place], [address] Chloride [Moles/Vol] 98 mmol/L Normal 98-108 [facility] Comment on above: Performed By: #### L 500.2500 ####[facility] [address] [place], [address] CO2 [Moles/Vol] 21.4 mmol/L Normal 21.0-32.0 [facility] Comment on above: Performed By: #### L 500.2500 ####[facility] [address] [place], [address] Creatinine [Mass/Vol] 0.76 mg/dL Normal 0.70-1.20 [facility] Comment on above: Performed By: #### L 500.2500 ####[facility] [address] [place], [address] ECRCL 39.62 ml/min Low 50-250 [facility] Comment on above: Performed By: #### L 500.2500 ####[facility] [address] [place], [address] GAP 10 Normal 5-15 [facility] Comment on above: Performed By: #### L 500.2500 ####[facility] [address] [place], [address] GFR/1.73 sq M.predicted among non-blacks MDRD (S/P/Bld) [Vol rate/Area] 79 mL/min/{1.73_m2} Normal >60 [facility] Comment on above: Result Comment: mL/m in/1.73m2 CKD-EPI Creatinine Equation (2020) Performed By: #### L 500.2500 ####[facility] [address] [place], [address] Glucose [Mass/Vol] 95 mg/dL Normal 70-99 [facility] Comment on above: Performed By: #### L 500.2500 ####[facility] [address] [place], [address] Potassium [Moles/Vol] 4.3 mmol/L Normal 3.3-5.1 [facility] Comment on above: Performed By: #### L 500.2500 ####[facility] [address] [place], [address] Sodium [Moles/Vol] 129 mmol/L Low 133-145 [facility] Comment on above: Performed By: #### L 500.2500 ####[facility] [address] [place], [address] Urea nitrogen [Mass/Vol] 11 mg/dL Normal 4-19 [facility] Comment on above: Performed By: #### L 500.2500 ####[facility] [address] [place], [address] Basic Metabolic Profile (BMP )on 11-19-2024 BUN/CRE 32.5 RATIO High 10-20 [facility] Comment on above: Performed By: #### L 100.0600, L500.2500 ####[facility] [address] [place], [address] Calcium [Mass/Vol] 9.2 mg/dL Normal 7.6-11.0 [facility] Comment on above: Performed By: #### L 100.0600, L500.2500 ####[facility] [address] [place], [address] Chloride [Moles/Vol] 103 mmol/L Normal 98-108 [facility] Comment on above: Performed By: #### L 100.0600, L500.2500 ####[facility] [address] [place], [address] CO2 [Moles/Vol] 20.4 mmol/L Low 21.0-32.0 [facility] Comment on above: Performed By: #### L 100.0600, L500.2500 ####[facility] [address] [place], [place], [address] Creatinine [Mass/Vol] 0.84 mg/dL Normal 0.70-1.20 [facility] Comment on above: Performed By: #### L 100.0600, L500.2500 ####[facility] [address] [place], [address] ECRCL 37.73 ml/min Low 50-250 [facility] Comment on above: Performed By: #### L 100.0600, L500.2500 ####[facility] [address] [place], [address] GAP 11 Normal 5-15 [facility] Comment on above: Performed By: #### L 100.0600, L500.2500 ####[facility] [address] [place], [address] GFR/1.73 sq M.predicted among non-blacks MDRD (S/P/Bld) [Vol rate/Area] 70 mL/min/{1.73_m2} Normal >60 [facility] Comment on above: Result Comment: mL/m in/1.73m2 CKD-EPI Creatinine Equation (2020) Performed By: #### L 100.0600, L500.2500 ####[facility] [address] [place], [address] Glucose [Mass/Vol] 138 mg/dL High 70-99 [facility] Comment on above: Performed By: #### L 100.0600, L500.2500 ####[facility] [address] [place], [address] Potassium [Moles/Vol] 4.3 mmol/L Normal 3.3-5.1 [facility] Comment on above: Performed By: #### L 100.0600, L500.2500 ####[facility] [address] [place], [address] Sodium [Moles/Vol] 134 mmol/L Normal 133-145 [facility] Comment on above: Performed By: #### L 100.0600, L500.2500 ####[facility] [address] [place], [address] Urea nitrogen [Mass/Vol] 27 mg/dL High 4-19 [facility] Comment on above: Performed By: #### L 100.0600, L500.2500 ####[facility] [address] [place], [address] HH, Hemoglobin AND Hematocri ton 11-19-2024 Hematocrit (Bld) [Volume fraction] 30.9 % Low 37-47 [facility] Comment on above: Performed By: #### L 100.0600, L500.2500 ####[facility] [address] [place], [address] Hemoglobin (Bld) [Mass/Vol] 10.7 g/dL Low 12.0-15.0 [facility] Comment on above: Performed By: #### L 100.0600, L500.2500 ####[facility] [address] [place], [address] Basic Metabolic Profile (BMP )on 11-18-2024 BUN/CRE 33.7 RATIO High 10-20 [facility] Comment on above: Performed By: #### L 500.2500 ####[facility] [address] [place], [address] Calcium [Mass/Vol] 8.9 mg/dL Normal 7.6-11.0 [facility] Comment on above: Performed By: #### L 500.2500 ####[facility] [address] [place], [address] Chloride [Moles/Vol] 104 mmol/L Normal 98-108 [facility] Comment on above: Performed By: #### L 500.2500 ####[facility] [address] [place], [address] CO2 [Moles/Vol] 20.1 mmol/L Low 21.0-32.0 [facility] Comment on above: Performed By: #### L 500.2500 ####[facility] [address] [place], [address] Creatinine [Mass/Vol] 0.94 mg/dL Normal 0.70-1.20 [facility] Comment on above: Performed By: #### L 500.2500 ####[facility] [address] [place], [address] ECRCL 34.29 ml/min Low 50-250 [facility] Comment on above: Performed By: #### L 500.2500 ####[facility] [address] [place], [address] GAP 10 Normal 5-15 [facility] Comment on above: Performed By: #### L 500.2500 ####[facility] [address] [place], [address] GFR/1.73 sq M.predicted among non-blacks MDRD (S/P/Bld) [Vol rate/Area] 61 mL/min/{1.73_m2} Normal >60 [facility] Comment on above: Result Comment: mL/m in/1.73m2 CKD-EPI Creatinine Equation (2020) Performed By: #### L 500.2500 ####[facility] [address] [place], [address] Glucose [Mass/Vol] 101 mg/dL High 70-99 [facility] Comment on above: Performed By: #### L 500.2500 ####[facility] [address] [place], [address] Potassium [Moles/Vol] 4.3 mmol/L Normal 3.3-5.1 [facility] Comment on above: Performed By: #### L 500.2500 ####[facility] [address] [place], [address] Sodium [Moles/Vol] 134 mmol/L Normal 133-145 [facility] Comment on above: Performed By: #### L 500.2500 ####[facility] [address] [place], [address] Urea nitrogen [Mass/Vol] 32 mg/dL High 4-19 [facility] Comment on above: Performed By: #### L 500.2500 ####[facility] [address] [place], [address] Basic Metabolic Profile (BMP )on 11-16-2024 BUN/CRE 18.5 RATIO Normal 10-20 [facility] Comment on above: Performed By: #### L 500.2500 ####[facility] [address] [place], [address] Calcium [Mass/Vol] 9.3 mg/dL Normal 7.6-11.0 [facility] Comment on above: Performed By: #### L 500.2500 ####[facility] [address] [place], [address] Chloride [Moles/Vol] 95 mmol/L Low 98-108 [facility] Comment on above: Performed By: #### L 500.2500 ####[facility] [address] [place], [address] CO2 [Moles/Vol] 21.4 mmol/L Normal 21.0-32.0 [facility] Comment on above: Performed By: #### L 500.2500 ####[facility] [address] [place], [address] Creatinine [Mass/Vol] 0.91 mg/dL Normal 0.70-1.20 [facility] Comment on above: Performed By: #### L 500.2500 ####[facility] [address] [place], [address] ECRCL 35.42 ml/min Low 50-250 [facility] Comment on above: Performed By: #### L 500.2500 ####[facility] [address] [place], [address] GAP 11 Normal 5-15 [facility] Comment on above: Performed By: #### L 500.2500 ####[facility] [address] [place], [address] GFR/1.73 sq M.predicted among non-blacks MDRD (S/P/Bld) [Vol rate/Area] 64 mL/min/{1.73_m2} Normal >60 [facility] Comment on above: Result Comment: mL/m in/1.73m2 CKD-EPI Creatinine Equation (2020) Performed By: #### L 500.2500 ####[facility] [address] [place], [address] Glucose [Mass/Vol] 103 mg/dL High 70-99 [facility] Comment on above: Performed By: #### L 500.2500 ####[facility] [address] [place], [address] Potassium [Moles/Vol] 4.5 mmol/L Normal 3.3-5.1 [facility] Comment on above: Performed By: #### L 500.2500 ####[facility] [address] [place], [address] Sodium [Moles/Vol] 126 mmol/L Low 133-145 [facility] Comment on above: Performed By: #### L 500.2500 ####[facility] [address] [place], [address] Urea nitrogen [Mass/Vol] 17 mg/dL Normal 4-19 [facility] Comment on above: Performed By: #### L 500.2500 ####[facility] [address] [place], [address] L509.6001on 11-16-2024 CORTISOL 11.40 ug/dL Normal 6.02-18.40 [facility] Comment on above: Performed By: #### L 509.6001 ####[facility] [address] [place], [address] Serum or plasma cortisol silvio surement (mass/volume)Ordered By: Jo-Ann Arias on 11-16-2024 Cortisol [Mass/Vol] 11.40 ug/dL 6.02-18.40 [facility] Basic Metabolic Profile (BMP )on 11-15-2024 BUN/CRE 18.3 RATIO Normal 10-20 [facility] Comment on above: Performed By: #### L 500.2500 ####[facility] [address] [place], [address] Calcium [Mass/Vol] 9.1 mg/dL Normal 7.6-11.0 [facility] Comment on above: Performed By: #### L 500.2500 ####[facility] [address] [place], [address] Chloride [Moles/Vol] 92 mmol/L Low 98-108 [facility] Comment on above: Performed By: #### L 500.2500 ####[facility] [address] [place], [address] CO2 [Moles/Vol] 22.8 mmol/L Normal 21.0-32.0 [facility] Comment on above: Performed By: #### L 500.2500 ####[facility] [address] [place], [address] Creatinine [Mass/Vol] 0.91 mg/dL Normal 0.70-1.20 [facility] Comment on above: Performed By: #### L 500.2500 ####[facility] [address] [place], [address] ECRCL 35.42 ml/min Low 50-250 [facility] Comment on above: Performed By: #### L 500.2500 ####[facility] [address] [place], [address] GAP 10 Normal 5-15 [facility] Comment on above: Performed By: #### L 500.2500 ####[facility] [address] [place], [address] GFR/1.73 sq M.predicted among non-blacks MDRD (S/P/Bld) [Vol rate/Area] 64 mL/min/{1.73_m2} Normal >60 [facility] Comment on above: Result Comment: mL/m in/1.73m2 CKD-EPI Creatinine Equation (2020) Performed By: #### L 500.2500 ####[facility] [address] [place], [address] Glucose [Mass/Vol] 97 mg/dL Normal 70-99 [facility] Comment on above: Performed By: #### L 500.2500 ####[facility] [address] [place], [address] Potassium [Moles/Vol] 4.7 mmol/L Normal 3.3-5.1 [facility] Comment on above: Performed By: #### L 500.2500 ####[facility] [address] [place], [address] Sodium [Moles/Vol] 124 mmol/L Low 133-145 [facility] Comment on above: Performed By: #### L 500.2500 ####[facility] [address] [place], [address] Urea nitrogen [Mass/Vol] 17 mg/dL Normal 4-19 [facility] Comment on above: Performed By: #### L 500.2500 ####[facility] [address] [place], [address] Bilirubin, totalOrdered By: Jo-Ann Arias on 11-13-2024 Bilirubin [Mass/Vol] 0.71 mg/dL 0.00-1.30 [facility] CBC-Complete Blood Cnt No Di ffon 11-13-2024 Erythrocyte distribution width (RBC) [Ratio] 13.2 % Normal 11.6-14.6 [facility] Comment on above: Performed By: #### L 501.5200, L100.0500, L500.4050 ####[facility] [address] [place], [address] Hematocrit (Bld) [Volume fraction] 30.8 % Low 37-47 [facility] Comment on above: Performed By: #### L 501.5200, L100.0500, L500.4050 ####[facility] [address] [place], [address] Hemoglobin (Bld) [Mass/Vol] 11.1 g/dL Low 12.0-15.0 [facility] Comment on above: Performed By: #### L 501.5200, L100.0500, L500.4050 ####[facility] [address] [place], [address] MCH (RBC) [Entitic mass] 33.3 pg High 27.0-32.0 [facility] Comment on above: Performed By: #### L 501.5200, L100.0500, L500.4050 ####[facility] [address] [place], [address] MCHC (RBC) [Mass/Vol] 36.0 g/dL Normal 32-36 [facility] Comment on above: Performed By: #### L 501.5200, L100.0500, L500.4050 ####[facility] [address] [place], [address] MCV (RBC) [Entitic vol] 92.5 fL Normal 81-99 [facility] Comment on above: Performed By: #### L 501.5200, L100.0500, L500.4050 ####[facility] [address] [place], [address] Platelet mean volume (Bld) [Entitic vol] 10.1 fL Normal 6.2-12.0 [facility] Comment on above: Performed By: #### L 501.5200, L100.0500, L500.4050 ####[facility] [address] [place], [address] Platelets (Bld) [#/Vol] 204 10*3/uL Normal 150-450 [facility] Comment on above: Performed By: #### L 501.5200, L100.0500, L500.4050 ####[facility] [address] [place], [address] RBC (Bld) [#/Vol] 3.33 10*6/uL Low 4.2-5.4 [facility] Comment on above: Performed By: #### L 501.5200, L100.0500, L500.4050 ####[facility] [address] [place], [address] RDW SD 44.3 fl High 35.1-43.9 [facility] Comment on above: Performed By: #### L 501.5200, L100.0500, L500.4050 ####[facility] [address] [place], [address] WBC (Bld) [#/Vol] 7.0 10*3/uL Normal 4.4-11.0 [facility] Comment on above: Performed By: #### L 501.5200, L100.0500, L500.4050 ####[facility] [address] [place], [address] Comprehensive Metabolic Prof ilon 11-13-2024 Albumin [Mass/Vol] 3.9 g/dL Normal 3.4-4.8 [facility] Comment on above: Performed By: #### L 501.5200, L100.0500, L500.4050 ####[facility] [address] [place], [address] Albumin/Globulin [Mass ratio] 1.8 {ratio} Normal 0.9-2.4 [facility] Comment on above: Performed By: #### L 501.5200, L100.0500, L500.4050 ####[facility] [address] [place], [address] ALK PHOS 81 U/L Normal 35-104 [facility] Comment on above: Performed By: #### L 501.5200, L100.0500, L500.4050 ####[facility] [address] [place], [address] ALT [Catalytic activity/Vol] 82 U/L High <=34 [facility] Comment on above: Performed By: #### L 501.5200, L100.0500, L500.4050 ####[facility] [address] [place], [address] AST [Catalytic activity/Vol] 57 U/L High <=31 [facility] Comment on above: Performed By: #### L 501.5200, L100.0500, L500.4050 ####[facility] [address] [place], [address] Bilirubin [Mass/Vol] 0.71 mg/dL Normal 0.00-1.30 [facility] Comment on above: Performed By: #### L 501.5200, L100.0500, L500.4050 ####[facility] [address] [place], [address] BUN/CRE 22.2 RATIO High 10-20 [facility] Comment on above: Performed By: #### L 501.5200, L100.0500, L500.4050 ####[facility] [address] [place], [address] Calcium [Mass/Vol] 9.4 mg/dL Normal 7.6-11.0 [facility] Comment on above: Performed By: #### L 501.5200, L100.0500, L500.4050 ####[facility] [address] [place], [address] Chloride [Moles/Vol] 95 mmol/L Low 98-108 [facility] Comment on above: Performed By: #### L 501.5200, L100.0500, L500.4050 ####[facility] [address] [place], [address] CO2 [Moles/Vol] 22.0 mmol/L Normal 21.0-32.0 [facility] Comment on above: Performed By: #### L 501.5200, L100.0500, L500.4050 ####[facility] [address] [place], [address] Creatinine [Mass/Vol] 0.89 mg/dL Normal 0.70-1.20 [facility] Comment on above: Performed By: #### L 501.5200, L100.0500, L500.4050 ####[facility] [address] [place], [address] ECRCL 36.21 ml/min Low 50-250 [facility] Comment on above: Performed By: #### L 501.5200, L100.0500, L500.4050 ####[facility] [address] [place], [address] GAP 10 Normal 5-15 [facility] Comment on above: Performed By: #### L 501.5200, L100.0500, L500.4050 ####[facility] [address] [place], [address] GFR/1.73 sq M.predicted among non-blacks MDRD (S/P/Bld) [Vol rate/Area] 66 mL/min/{1.73_m2} Normal >60 [facility] Comment on above: Result Comment: mL/m in/1.73m2 CKD-EPI Creatinine Equation (2020) Performed By: #### L 501.5200, L100.0500, L500.4050 ####[facility] [address] [place], [address] Globulin (S) [Mass/Vol] 2.2 g/dL Normal 2.2-4.2 [facility] Comment on above: Performed By: #### L 501.5200, L100.0500, L500.4050 ####[facility] [address] [place], [address] Glucose [Mass/Vol] 95 mg/dL Normal 70-99 [facility] Comment on above: Performed By: #### L 501.5200, L100.0500, L500.4050 ####[facility] [address] [place], [address] Potassium [Moles/Vol] 4.7 mmol/L Normal 3.3-5.1 [facility] Comment on above: Performed By: #### L 501.5200, L100.0500, L500.4050 ####[facility] [address] [place], [address] Sodium [Moles/Vol] 127 mmol/L Low 133-145 [facility] Comment on above: Performed By: #### L 501.5200, L100.0500, L500.4050 ####[facility] [address] [place], [address] T PROT 6.1 g/dL Normal 5.9-8.4 [facility] Comment on above: Performed By: #### L 501.5200, L100.0500, L500.4050 ####[facility] [address] [place], [address] Urea nitrogen [Mass/Vol] 20 mg/dL High 4-19 [facility] Comment on above: Performed By: #### L 501.5200, L100.0500, L500.4050 ####[facility] [address] [place], [address] Laboratory - Chemistry and C hemistry - challengeOrdered By: Jo-Ann Arias on 11-13-2024 AST [Catalytic activity/Vol] 57 U/L High <32 [facility] Magnesiumon 11-13-2024 Magnesium [Mass/Vol] 2.0 mg/dL Normal 1.5-2.2 [facility] Comment on above: Performed By: #### L 501.5200, L100.0500, L500.4050 ####[facility] [address] [place], [address] Magnesium measurement (mass/ volume)Ordered By: Jo-Ann Arias on 11-13-2024 Magnesium (Unsp spec) [Mass/Vol] 2.0 mg/dL 1.5-2.2 [facility] No Panel InformationOrdered By: Jo-Ann Arias on 11-13-2024 57 U/L High <32 [facility] Osmolality, Serumon 11-14-19 25 OSMOLALITY,SER 271 mOsm/KG Low 280-301 [facility] Comment on above: Performed By: #### L 501.7300 ####[facility] [address] [place], [address] Osmolality, Urineon 11-14-19 25 OSMOLALITY,UR 591 mOsm/KG Normal [facility] Comment on above: Result Comment: Norm al Urine Reference Ranges Random: 50 - 1200 mOsm/kg H20 depending on fluid intake Random: >850 mOsm/kg after 12 hour fluid restriction 24 hour: 300 - 900 mOsm/kg H2O Performed By: #### L 501.7400, L501.5500 ####[facility] [address] [place], [place], [address] Phosphoruson 11-13-2024 Phosphate [Mass/Vol] 3.9 mg/dL Normal 2.7-4.5 [facility] Comment on above: Performed By: #### L 501.2300 ####[facility] [address] [place], [place], [address] Serum globulin measurementOr dered By: Jo-Ann Arias on 11-13-2024 Globulin (S) [Mass/Vol] 2.2 g/dL 2.2-4.2 [facility] Serum or plasma alanine oliver otransferase (ALT) measurementOrdered By: Jo-Ann Arias on 11-13-2024 ALT [Catalytic activity/Vol] 82 U/L High <35 [facility] Serum or plasma albumin/glob ulin mass ratioOrdered By: Jo-Ann Arias on 11-13-2024 Albumin/Globulin [Mass ratio] 1.8 {ratio} 0.9-2.4 [facility] Serum or plasma alkaline brenna sphatase measurementOrdered By: Jo-Ann Arias on 11-13-2024 ALP [Catalytic activity/Vol] 81 U/L 35-104 [facility] TSH DL <= 0.005 mIU/L QnOrde red By: Jo-Ann Arias on 11-13-2024 TSH Qn 1.990 uIU/mL 0.300-4.200 [facility] Thyroid Stim Hormone (TSH)on 11-13-2024 TSH 1.990 uIU/mL Normal 0.300-4.200 [facility] Comment on above: Performed By: #### L 501.9520 ####[facility] [address] [place], [place], [address] Total proteinOrdered By: Alyssa Arias on 11-13-2024 Protein [Mass/Vol] 6.1 g/dL 5.9-8.4 [facility] Urine Sodiumon 11-13-2024 Sodium (U) [Moles/Vol] 89 mmol/L Normal Not Establ. [facility] Comment on above: Performed By: #### L 501.7400, L501.5500 ####[facility] [address] [place], [address] CBC,PLATELETSon 11-12-2024 Hematocrit (Bld) [Volume fraction] 30.0 % Low 34.9-44.3 [facility] Comment on above: Performed By: #### H EMOGC #### [facility] (DEFAULT) [address] [address] Hemoglobin (Bld) [Mass/Vol] 10.6 g/dL Low 11.4-15.2 [facility] Comment on above: Performed By: #### H EMOGC #### [facility] (DEFAULT) [address] [address] MCV (RBC) [Entitic vol] 92.9 fL Normal 79.6-97.7 [facility] Comment on above: Performed By: #### H EMOGC #### [facility] (DEFAULT) [address] [address] Mean Cell Hgb 32.8 pg Normal 25.9-33.9 [facility] Comment on above: Performed By: #### H EMOGC #### [facility] (DEFAULT) [address] [address] Mean Cell Hgb Conc 35.3 g/dL Normal 31.4-35.9 [facility] Comment on above: Performed By: #### H EMOGC #### [facility] (DEFAULT) [address] [address] Platelet mean volume (Bld) [Entitic vol] 10.2 fL Normal 8.5-12.2 [facility] Comment on above: Performed By: #### H EMOGC #### [facility] (DEFAULT) [address] [address] Platelets (Bld) [#/Vol] 195 10*3/uL Normal 150-393 [facility] Comment on above: Performed By: #### H EMOGC #### [facility] (DEFAULT) [address] [place] [address] RBC (Bld) [#/Vol] 3.23 10*6/uL Low 3.91-5.04 [facility] Comment on above: Performed By: #### H EMOGC #### [facility] (DEFAULT) [address] [place] [address] RBC Distribution 13.2 % Normal 10.8-14.9 [facility] Comment on above: Performed By: #### H EMOGC #### [facility] (DEFAULT) [address] [place] [address] WBC (Bld) [#/Vol] 6.18 10*3/uL Normal 3.99-11.19 [facility] Comment on above: Performed By: #### H EMOGC #### [facility] (DEFAULT) [address] [place] [address] CHEM 7 (LYTES,BUN,CREA,GLUC) on 11-12-2024 Anion gap [Moles/Vol] 12 mmol/L Normal 7-17 [facility] Comment on above: Performed By: #### M GO, IPB, CHM7, HFP #### [facility] (DEFAULT) [address] [place] [address] Chloride [Moles/Vol] 99 mmol/L Normal 98-108 [facility] Comment on above: Performed By: #### M GO, IPB, CHM7, HFP #### [facility] (DEFAULT) [address] [place] [address] CO2 [Moles/Vol] 25 mmol/L Normal 21-31 [facility] Comment on above: Performed By: #### M GO, IPB, CHM7, HFP #### [facility] (DEFAULT) [address] [place] [address] Creatinine [Mass/Vol] 0.89 mg/dL Normal 0.50-1.20 [facility] Comment on above: Performed By: #### GA FUNES CHM7, HFP #### [facility] (DEFAULT) [address] [place] [address] GFR/1.73 sq M.predicted among non-blacks MDRD (S/P/Bld) [Vol rate/Area] 65 mL/min/{1.73_m2} Normal >=60 [facility] Comment on above: Result Comment: Repo rted eGFR is based on the CKD-EPI 2020 equation using creatinine, age, and sex. Performed By: #### GA FUNES CHM7, HFP #### [facility] (DEFAULT) [address] [place] [address] Glucose [Mass/Vol] 99 mg/dL Normal Nonfastin -179 mg/dL; Fastin-99 [facility] Comment on above: Performed By: #### GA FUNES CHM7, HFP #### [facility] (DEFAULT) [address] [place] [address] Osmolality [Osmolality] 278 mosm/kg Normal 278-305 [facility] Comment on above: Performed By: #### GA FUNES, CHM7, HFP #### [facility] (DEFAULT) [address] [place] [address] Potassium [Moles/Vol] 4.5 mmol/L Normal 3.5-5.0 [facility] Comment on above: Performed By: #### GA FUNES, CARLM7, HFP #### [facility] (DEFAULT) [address] [place] [address] Sodium [Moles/Vol] 131 mmol/L Low 135-145 [facility] Comment on above: Performed By: #### GA FUNES, CHM7, HFP #### [facility] [place] (DEFAULT) [address] [place] [address] Urea nitrogen [Mass/Vol] 16 mg/dL Normal 7-25 [facility] Comment on above: Performed By: #### M GA ALBERTO CHM7, HFP #### [facility] [place] (DEFAULT) [address] [place] [address] Urea nitrogen/Creatinine [Mass ratio] 18 mg/mg Normal [facility] Comment on above: Performed By: #### M GA ALBERTO, KARL7, HFP #### [facility] (DEFAULT) [address] [place] [address] Cardiac echo study Procedure Ordered By: Shirlene Marrero on 11-12-2024 Ao ASC index 2.1 cm/m2 [facility] Work Phone: Ao peak vika 2.71 m/s [facility] Work Phone: Ao SOV index 1.88 cm/m2 [facility] Work Phone: [phone] Ao VTI 63.7 cm [facility] Work Phone: AR Max Vika 4.09 m/s [facility] Work Phone: Ascending [facility] 2.9 [facility] AV LVOT peak gradient 9 mmHg [facility] Work Phone: [phone] AV mean gradient 15 mmHg [facility] Work Phone: AV peak gradient 29 mmHG [facility] Work Phone: AV regurgitation pressure 1/2 time 468 ms [facility] Work Phone: [phone] AV valve area 1.38 cm2 [facility] Work Phone: AV Velocity Ratio 0.54 [facility] Work Phone: JULIUS (continuity Vmax) 1.37 cm2 [facility]: JULIUS (continuity VTI) 1.38 cm2 [facility]: JULIUS index (continuity Vmax) 0.99 m/s [facility] Work Phone: JULIUS index (continuity VTI) 1 cm2/m2 [facility] Work [facility]: Avg e' pk vika 0.06 m/s [facility] Work Phone: Avg E/e' ratio 15.98 [facility] Work Phone: Body surface area Derived from formula 1.38 m2 [facility] Work Phone: DI (Vmax) 0.54 [facility] Work Phone: DI (VTI) 0.54 m/2 [facility] Work Phone: E wave decelartion time 209 msec [facility] Work Phone: e' lateral pk vika 0.0729 m/s [facility] Work Phone: e' lateral pk vika 0.07 m/s [facility]: e' septal pk v[facility] 0.0511 [facility]: e' septal pk vika 0.05 m/s [facility] Work Phone: E/A ratio 0.73 [facility] Work Phone: E/e' lateral ratio 13.17 [facility] Work Phone: E/e' septal ratio 18.79 [facility] Work Phone: Echo EF Estimated 55 % [facility] Work Phone: EST RAP 3 mmHg [facility] Work Phone: EST RVSP 25 mmHg [facility] Work Phone: FS 47 % [facility] Work Phone: IVC ostium 1.5 cm [facility] Work [facility]: IVS 0.9 cm [facility] Work Phone: LA ESV BP (MOD) 60 mL [facility] Work Phone: LA ESV BP (MOD) index 43 mL/m2 [facility] Work Phone: LA ESV SP 2CH (MOD) 46 mL [facility] Work Phone: LA ESV SP 4CH (MOD) 64 mL [facility] Work Phone: LV mass 141.91 g [facility] Work Phone: LV Mass Index 102.8 g/m2 [facility] Work [facility]: LV RWT 0.33 [facility] Work Phone: LVIDD 4.9 cm [facility] Work Phone: LVIDS 2.6 cm [facility] Work Phone: LVOT area 2.54 cm2 [facility] Work Phone: LVOT diameter 1.8 cm [facility] Work Phone: LVOT peak vika 1.46 m/s [facility] Work Phone: LVOT peak VTI 34.5 cm [facility] Work Phone: LVOT stroke volume 88 cm3 [facility] Work Phone: LVOT stroke volume index 63.59 ml/m2 [facility] Work Phone: MV pk A vika 1.32 m/s [facility] Work Phone: MV pk E vika 0.96 m/s [facility] Work Phone: MV stenosis pressure 1/2 time 61 ms [facility] Work [facility]: MV valve area p 1/2 method 3.61 cm2 [facility] Work Phone: [facility] AV VTI RATIO PRE STRESS 0.54 [facility] Work Phone: [facility]IO [facility].79 [facility] PV mean gradient 4 mmHg [facility] Work Phone: PV peak gradient 6 [facility]: PV PK VIKA 1.22 m/s [facility] Work [facility]: PV VTI 29.8 cm [facility] Work Phone: PW 0.8 cm [facility] Work Phone: RA vol index 4CH (MOD) 12.32 mL/m2 [facility] Work Phone: Right atrium volume 4 chamber method of disks 17 mL [facility] Work Phone: RV basal diam 3.7 cm [facility] Work Phone: RV S' 13.1 cm/s [facility] Work Phone: RVOT peak gradient 4 [facility]: RVOT peak vika 0.97 m/s [facility] Work Phone: RVOT peak VTI 23.5 cm [facility] Work Phone: Sinus 2.6 cm [facility] Work Phone: Stroke Volume 88 cm/mL [facility] Work Phone: Stroke volume index 64 [facility] Work Phone: TAPSE 2.23 cm [facility] Work Phone: TR pk grad 22 mmHg [facility] Work Phone: TR pk vika 2.33 m/s [facility] Work Phone: [facility] Work Phone: Cardiac echo study Procedure on [...] and technically difficult study. Imaging system used: [employer]. Indications Indications for study: murmur. Wall Scoring Score Index: 1.00 The left ventricular wall motion is normal. [facility] Radiology Study observation (narrative) [facility] ECHOCARDIOGRAMon 11-12-2024 Echocardiography Normal left ventricu lar [...] from the original result were not included. [facility] Facility [facility] Patient Information Patient Name Sarah [...] Role Read Date Shirlene Marrero MD Echo [place], Test [employer] 11/12/2024 Wall Scoring Score Index: 1.00 The [...] PISA A (more content not included)... Normal [facility] Laboratory - Chemistry and C hemistry - challengeon 11-12-2024 Anion gap [Moles/Vol] 12 mmol/L 7 - 17 mmol/L [facility] Chloride [Moles/Vol] 99 mmol/L 98 - 10 8 mmol/L [facility] CO2 [Moles/Vol] 25 mmol/L 21 - 31 mmol/L [facility] Creatinine [Mass/Vol] 0.89 mg/dL 0.50 - 1.20 mg/dL [facility] Glucose [Mass/Vol] 99 mg/dL 70 - 179 mg/dL [facility] Osmolality Calc [Osmolality] 278 [facility] Potassium [Moles/Vol] 4.5 mmol/L 3.5 - 5.0 mmol/L [facility] Sodium [Moles/Vol] 131 mmol/L Low 135 - 145 mmol/L [facility] Urea nitrogen [Mass/Vol] 16 mg/dL 7 - 25 mg/dL [facility] Urea nitrogen/Creatinine [Mass ratio] 18 mg/mg [facility] Laboratory - Hematology and Cell countson 11-12-2024 Erythrocyte distribution width (RBC) [Ratio] 13.2 % 10.8 - 14.9 % [facility] Hematocrit (Bld) [Volume fraction] 30 % Low 34.9 - 44.3 % [facility] Hemoglobin (Bld) [Mass/Vol] 10.6 g/dL Low 11.4 - 15.2 g/dL [facility] MCH (RBC) [Entitic mass] 32.8 pg 25.9 - 33.9 pg [facility] MCHC (RBC) [Mass/Vol] 35.3 g/dL 31.4 - 35.9 g/dL [facility] MCV (RBC) [Entitic vol] 92.9 fL 79.6 - 97.7 fL [facility] Platelet mean volume (Bld) [Entitic vol] 10.2 fL 8.5 - 12.2 fL [facility] Platelets (Bld) [#/Vol] 195 10*3/uL 150 - 393 K/uL [facility] RBC (Bld) [#/Vol] 3.23 10*6/uL Low [facility] WBC (Bld) [#/Vol] 6.18 10*3/uL 3.99 - 11.19 K/uL [facility] No Panel Informationon 11-12 eGFR, CKD-EPI, Female 63 - PINF [facility] Comment on above: Reported eGFR is bas ed on the CKD-EPI 2020 equation using creatinine, age, and sex. Interpretation and review of laboratory results Abnormal [facility] Interpretation and review of laboratory results Abnormal [facility] CBC,PLATELETSon 11-11-2024 Hematocrit (Bld) [Volume fraction] 29.3 % Low 34.9-44.3 [facility] Comment on above: Performed By: #### H [facility] #### [facility] (DEFAULT) [address] [address] Hemoglobin (Bld) [Mass/Vol] 10.2 g/dL Low 11.4-15.2 [facility] Comment on above: Performed By: #### H EMO #### [facility] (DEFAULT) [address] [address] MCV (RBC) [Entitic vol] 93.3 fL Normal 79.6-97.7 [facility] Comment on above: Performed By: #### H [facility] #### [facility] (DEFAULT) [address] [address] Mean Cell Hgb 32.5 pg Normal 25.9-33.9 [facility] Comment on above: Performed By: #### H EMOGC #### [facility] (DEFAULT) [address] [address] Mean Cell Hgb Conc 34.8 g/dL Normal 31.4-35.9 [facility] Comment on above: Performed By: #### H EMO #### [facility] (DEFAULT) [address] [place] [address]672 Platelet mean volume (Bld) [Entitic vol] 10.3 fL Normal 8.5-12.2 [facility] Comment on above: Performed By: #### H EMOGC #### [facility] (DEFAULT) [address] [place] [address] Platelets (Bld) [#/Vol] 193 10*3/uL Normal 150-393 [facility] Comment on above: Performed By: #### H EMOGC #### [facility] (DEFAULT) [address] [place] [address]997 RBC (Bld) [#/Vol] 3.14 10*6/uL Low 3.91-5.04 [facility] Comment on above: Performed By: #### H EMOGC #### [facility] (DEFAULT) [address] [place] [address] 29793 RBC Distribution 13.2 % Normal 10.8-14.9 [facility] Comment on above: Performed By: #### H EMOGC #### [facility] (DEFAULT) [address] [place] [address] WBC (Bld) [#/Vol] 5.77 10*3/uL Normal 3.99-11.19 [facility] Comment on above: Performed By: #### H EMOGC #### [facility] (DEFAULT) [address] [place] [address] 99573 CHEM 7 (LYTES,BUN,CREA,GLUC) on 11-11-2024 Anion gap [Moles/Vol] 12 mmol/L Normal 7-17 [facility] Comment on above: Performed By: #### GA FUNES, CARLM7, HFP #### [facility] (DEFAULT) [address] [place] [address]459 Chloride [Moles/Vol] 98 mmol/L Normal 98-108 [facility] Comment on above: Performed By: #### GA FUNES CHM7, HFP #### [facility] (DEFAULT) [address] [place] [address] 73276 CO2 [Moles/Vol] 24 mmol/L Normal 21-31 [facility] Comment on above: Performed By: #### GA FUNES CHM7, HFP #### [facility] (DEFAULT) [address] [place] [address] 49886 Creatinine [Mass/Vol] 0.93 mg/dL Normal 0.50-1.20 [facility] Comment on above: Performed By: #### GA FUNES CHM7, HFP #### [facility] (DEFAULT) [address] [place] [address] 50020 GFR/1.73 sq M.predicted among non-blacks MDRD (S/P/Bld) [Vol rate/Area] 62 mL/min/{1.73_m2} Normal >=60 [facility] Comment on above: Result Comment: Repo rted eGFR is based on the CKD-EPI 2020 equation using creatinine, age, and sex. Performed By: #### GA FUNES CHM7, HFP #### [facility] (DEFAULT) [address] [place] [address] 00062 Glucose [Mass/Vol] 95 mg/dL Normal Nonfastin -179 mg/dL; Fastin-99 [facility] Comment on above: Performed By: #### GA FUNES CHM7, HFP #### [facility] (DEFAULT) [address] [place] [address]37 Osmolality [Osmolality] 275 mosm/kg Low 278-305 [facility] Comment on above: Performed By: #### GA FUNES CHM7, HFP #### [facility] (DEFAULT) [address] [place] [address] 62888 Potassium [Moles/Vol] 4.3 mmol/L Normal 3.5-5.0 [facility] Comment on above: Performed By: #### M GO, IPB, CHM7, HFP #### [facility] (DEFAULT) [address] [place] [address] Sodium [Moles/Vol] 130 mmol/L Low 135-145 [facility] Comment on above: Performed By: #### M REMY, IPB, CHM7, HFP #### [facility] (DEFAULT) [address] [place] [address] Urea nitrogen [Mass/Vol] 15 mg/dL Normal 7-25 [facility] Comment on above: Performed By: #### M REMY, IPB, CHM7, HFP #### [facility] (DEFAULT) [address] [place] [address] 15020 Urea nitrogen/Creatinine [Mass ratio] 16 mg/mg Normal [facility] Comment on above: Performed By: #### M REMY, IPB, CHM7, HFP #### [facility] (DEFAULT) [address] [place] [address] Laboratory - Chemistry and C hemistry - challengeon 11-11-2024 Anion gap [Moles/Vol] 12 mmol/L 7 - 17 mmol/L [facility] Chloride [Moles/Vol] 98 mmol/L 98 - 10 8 mmol/L [facility] CO2 [Moles/Vol] 24 mmol/L 21 - 31 mmol/L [facility] Creatinine [Mass/Vol] 0.93 mg/dL 0.50 - 1.20 mg/dL [facility] Glucose [Mass/Vol] 95 mg/dL 70 - 179 mg/dL [facility] Osmolality Calc [Osmolality] 275 Low [facility] Potassium [Moles/Vol] 4.3 mmol/L 3.5 - 5.0 mmol/L [facility] Sodium [Moles/Vol] 130 mmol/L Low 135 - 145 mmol/L [facility] Urea nitrogen [Mass/Vol] 15 mg/dL 7 - 25 mg/dL [facility] Urea nitrogen/Creatinine [Mass ratio] 16 mg/mg [facility] - Hematology and Cell countson 11-11-2024 Erythrocyte distribution width (RBC) [Ratio] 13.2 % 10.8 - 14.9 % [facility] Hematocrit (Bld) [Volume fraction] 29.3 % Low 34.9 - 44.3 % [facility] Hemoglobin (Bld) [Mass/Vol] 10.2 g/dL Low 11.4 - 15.2 g/dL [facility] MCH (RBC) [Entitic mass] 32.5 pg 25.9 - 33.9 pg [facility] MCHC (RBC) [Mass/Vol] 34.8 g/dL 31.4 - 35.9 g/dL [facility] MCV (RBC) [Entitic vol] 93.3 fL 79.6 - 97.7 fL [facility] Platelet mean volume (Bld) [Entitic vol] 10.3 fL 8.5 - 12.2 fL [facility] Platelets (Bld) [#/Vol] 193 10*3/uL 150 - 393 K/uL [facility] RBC (Bld) [#/Vol] 3.14 10*6/uL Low [facility] WBC (Bld) [#/Vol] 5.77 10*3/uL 3.99 - 11.19 K/uL [facility] No Panel Informationon 11-11 eGFR, CKD-EPI, Female 60 - PINF [facility] Comment on above: Reported eGFR is bas ed on the CKD-EPI 2020 equation using creatinine, age, and sex. Interpretation and review of laboratory results Abnormal [facility] Interpretation and review of laboratory results Abnormal [facility] CBC,PLATELETSon 11-10-2024 Hematocrit (Bld) [Volume fraction] 31.4 % Low 34.9-44.3 [facility] Comment on above: Performed By: #### M GO, IPB, CHM7, HFP #### [facility] (DEFAULT) [address] [place] [address] Hemoglobin (Bld) [Mass/Vol] 11.1 g/dL Low 11.4-15.2 [facility] Comment on above: Performed By: #### M REMY IPB, CHM7, HFP #### [facility] (DEFAULT) [address] [place] [address] MCV (RBC) [Entitic vol] 93.5 fL Normal 79.6-97.7 [facility] Comment on above: Performed By: #### M REMY, IPB, CHM7, HFP #### [facility] (DEFAULT) [address] [place] [address] Mean Cell Hgb 33.0 pg Normal 25.9-33.9 [facility] Comment on above: Performed By: #### Harini ALBERTO IPB, CHM7, HFP #### [facility] (DEFAULT) [address] [place] [address] 235[address] Mean Cell Hgb Conc 35.4 g/dL Normal 31.4-35.9 [facility] Comment on above: Performed By: #### M REMY IPB, CHM7, HFP #### [facility] (DEFAULT) [address] [place] [address] Platelet mean volume (Bld) [Entitic vol] 10.4 fL Normal 8.5-12.2 [facility] Comment on above: Performed By: #### Harini ALBERTO IPB, CHM7, HFP #### [facility] (DEFAULT) [address] [place] [address] Platelets (Bld) [#/Vol] 205 10*3/uL Normal 150-393 [facility] Comment on above: Performed By: #### M REMY IPB, CHM7, HFP #### [facility] (DEFAULT) [address] [place] [address] RBC (Bld) [#/Vol] 3.36 10*6/uL Low 3.91-5.04 [facility] Comment on above: Performed By: #### M GO, IPB, CHM7, HFP #### [facility] (DEFAULT) [address] [place] [address]25 RBC Distribution 13.3 % Normal 10.8-14.9 [facility] Comment on above: Performed By: #### M IDALIA ALBERTOB, CHM7, HFP #### [facility] (DEFAULT) [address] [place] [address]8554 WBC (Bld) [#/Vol] 9.67 10*3/uL Normal 3.99-11.19 [facility] Comment on above: Performed By: #### Harini ALBERTO IPB, CHM7, HFP #### [facility] (DEFAULT) [address] [place] [address] CHEM 7 (LYTES,BUN,CREA,GLUC) on 11-10-2024 Anion gap [Moles/Vol] 13 mmol/L Normal 7-17 [facility] Comment on above: Performed By: #### IDALIA FUNESB, CHM7, HFP #### [facility] (DEFAULT) [address] [place] [address] Chloride [Moles/Vol] 99 mmol/L Normal 98-108 [facility] Comment on above: Performed By: #### IDALIA FUNESB, CHM7, HFP #### [facility] (DEFAULT) [address] [place] [address] CO2 [Moles/Vol] 25 mmol/L Normal 21-31 [facility] Comment on above: Performed By: #### Harini ALBERTO IPB, CHM7, HFP #### [facility] (DEFAULT) [address] [place] [address] Creatinine [Mass/Vol] 0.78 mg/dL Normal 0.50-1.20 [facility] Comment on above: Performed By: #### Harini ALBERTO IPB, CHM7, HFP #### [facility] (DEFAULT) [address] [place] [address] 35723 GFR/1.73 sq M.predicted among non-blacks MDRD (S/P/Bld) [Vol rate/Area] 77 mL/min/{1.73_m2} Normal >=60 [facility] Comment on above: Result Comment: Repo rted eGFR is based on the CKD-EPI 2020 equation using creatinine, age, and sex. Performed By: #### IDALIA FUNESB, CHM7, HFP #### [facility] (DEFAULT) [address] [place] [address]954 Glucose [Mass/Vol] 96 mg/dL Normal Nonfastin -179 mg/dL; Fastin-99 [facility] Comment on above: Performed By: #### IDALIA FUNESB, CHM7, HFP #### [facility] (DEFAULT) [address] [place] [address]64 Osmolality [Osmolality] 280 mosm/kg Normal 278-305 [facility] Comment on above: Performed By: #### Harini ALBERTO IPB, CHM7, HFP #### [facility] (DEFAULT) [address] [place] [address] 31767 Potassium [Moles/Vol] 4.7 mmol/L Normal 3.5-5.0 [facility] Comment on above: Performed By: #### IDALIA FUNESB, CHM7, HFP #### [facility] (DEFAULT) [address] [place] [address] 81432 Sodium [Moles/Vol] 132 mmol/L Low 135-145 [facility] Comment on above: Performed By: #### Harini ALBERTO IPB, CHM7, HFP #### [facility] (DEFAULT) [address] [place] [address] 62550 Urea nitrogen [Mass/Vol] 16 mg/dL Normal 7-25 [facility] Comment on above: Performed By: #### Harini ALBERTO IPB, CHM7, HFP #### [facility] (DEFAULT) [address] [place] [address] 77965 Urea nitrogen/Creatinine [Mass ratio] 21 mg/mg Normal [facility] Comment on above: Performed By: #### M GO, IPB, CHM7, HFP #### [facility] (DEFAULT) [address] [place] [address] Laboratory - Chemistry and C hemistry - challengeon 11-10-2024 Anion gap [Moles/Vol] 13 mmol/L 7 - 17 mmol/L [facility] Chloride [Moles/Vol] 99 mmol/L 98 - 10 8 mmol/L [facility] CO2 [Moles/Vol] 25 mmol/L 21 - 31 mmol/L [facility] Creatinine [Mass/Vol] 0.78 mg/dL 0.50 - 1.20 mg/dL [facility] Glucose [Mass/Vol] 96 mg/dL 70 - 179 mg/dL [facility] Osmolality Calc [Osmolality] 280 [facility] Potassium [Moles/Vol] 4.7 mmol/L 3.5 - 5.0 mmol/L [facility] Sodium [Moles/Vol] 132 mmol/L Low 135 - 145 mmol/L [facility] Urea nitrogen [Mass/Vol] 16 mg/dL 7 - 25 mg/dL [facility] Urea nitrogen/Creatinine [Mass ratio] 21 mg/mg [facility] Laboratory - Hematology and Cell countson 11-10-2024 Erythrocyte distribution width (RBC) [Ratio] 13.3 % 10.8 - 14.9 % [facility] Hematocrit (Bld) [Volume fraction] 31.4 % Low 34.9 - 44.3 % [facility] Hemoglobin (Bld) [Mass/Vol] 11.1 g/dL Low 11.4 - 15.2 g/dL [facility] MCH (RBC) [Entitic mass] 33 pg 25.9 - 33.9 pg [facility] MCHC (RBC) [Mass/Vol] 35.4 g/dL 31.4 - 35.9 g/dL [facility] MCV (RBC) [Entitic vol] 93.5 fL 79.6 - 97.7 fL [facility] Platelet mean volume (Bld) [Entitic vol] 10.4 fL 8.5 - 12.2 fL [facility] Platelets (Bld) [#/Vol] 205 10*3/uL 150 - 393 K/uL [facility] RBC (Bld) [#/Vol] 3.36 10*6/uL Low [facility] WBC (Bld) [#/Vol] 9.67 10*3/uL 3.99 - 11.19 K/uL [facility] MR Brain WO and W contrast I [...] suggest recurrence. Stable remote right cerebellar infarct. [facility] Radiology Study observation (narrative) [facility] MRA Head vessels WO contrast on 11-10-2024 [...] of the brain is performed using 3D [id number] technique without intravenous contrast. Source images, as [...] of the brain is performed using 3D ctge-ct-fuleiw technique without intravenous contrast. Source images, as [...] segment of the bilateral posterior cerebral arteries. [facility] Radiology Study observation (narrative) [facility] MRA Head vessels WO contrast Ordered By: Morgan Fierro on 11-10-2024 [facility] Work Phone: MRA Neck vessels WO and [...] carotid or vertebral system in the neck. [facility] Radiology Study observation (narrative) [facility] MRI ANGIO NECK WITH AND WITH OUT [...] or vertebral system in the neck. Normal [facility] MRI ARTERIOGRAM BRAIN WITHOU T CONTRASTon 11-10-2024 MRI ARTERIOGRAM BRAIN WITHOUT CONTRAST EXAM: MRI ARTERIOGRAM BRAIN WITHOUT CONTRAST, 11/10/2024 11:55 AM COMPARISON: MRI BRAIN WITH AND WITHOUT CONTRAST November 10, 2024 CLINICAL INDICATIONS: 78 years Female Seizure work up TECHNIQUE: MR Angiography of the brain is performed using 3D maiz-ba-ufslzy technique without intravenous contrast. Source images, as [...] of the bilateral posterior cerebral arteries. Normal [facility] MRI BRAIN WITH AND WITHOUT C [facility] 11-10-2024 MRI BRAIN WITH AND WITHOUT CONTRAST [...] recurrence. Stable remote right cerebellar infarct. Normal [facility] No Panel Informationon 11-10 [facility] eGFR, CKD-EPI, Female 75 - PINF [facility] Comment on above: Reported eGFR is bas ed on the CKD-EPI 2020 equation using creatinine, age, and sex. Interpretation and review of laboratory results Abnormal [facility] Interpretation and review of laboratory results Abnormal [facility] CBC,PLATELETSon 11-09-2024 Hematocrit (Bld) [Volume fraction] 28.5 % Low 34.9-44.3 [facility] Comment on above: Performed By: #### GA FUNES, CHM7, HFP #### [facility] (DEFAULT) [address] [place] [address]1296 Hemoglobin (Bld) [Mass/Vol] 10.4 g/dL Low 11.4-15.2 [facility] Comment on above: Performed By: #### GA FUNES, CHM7, HFP #### [facility] (DEFAULT) [address] [place] [address] 96283 MCV (RBC) [Entitic vol] 91.9 fL Normal 79.6-97.7 [facility] Comment on above: Performed By: #### GA FUNES, CHM7, HFP #### [facility] (DEFAULT) [address] [place] [address] 39950 Mean Cell Hgb 33.5 pg Normal 25.9-33.9 [facility] Comment on above: Performed By: #### GA FUNES, CHM7, HFP #### [facility] (DEFAULT) [address] [place] [address] 67089 Mean Cell Hgb Conc 36.5 g/dL High 31.4-35.9 [facility] Comment on above: Performed By: #### GA FUNES, CHM7, HFP #### [facility] (DEFAULT) [address] [place] [address] 61790 Platelet mean volume (Bld) [Entitic vol] 10.4 fL Normal 8.5-12.2 [facility] Comment on above: Performed By: #### M GO, IPB, CHM7, HFP #### [facility] (DEFAULT) [address] [place] [address] 55811 Platelets (Bld) [#/Vol] 182 10*3/uL Normal 150-393 [facility] Comment on above: Performed By: #### M GO, IPB, CHM7, HFP #### [facility] (DEFAULT) [address] [place] [address] 64187 RBC (Bld) [#/Vol] 3.10 10*6/uL Low 3.91-5.04 [facility] Comment on above: Performed By: #### M GO, IPB, CHM7, HFP #### [facility] (DEFAULT) [address] [place] [address] 20003 RBC Distribution 13.2 % Normal 10.8-14.9 [facility] Comment on above: Performed By: #### M GO, IPB, CHM7, HFP #### [facility] (DEFAULT) [address] [place] [address] 86393 WBC (Bld) [#/Vol] 6.17 10*3/uL Normal 3.99-11.19 [facility] Comment on above: Performed By: #### M GO, IPB, CHM7, HFP #### [facility] (DEFAULT) [address] [place] [address] 35512 CHEM 7 (LYTES,BUN,CREA,GLUC) on 11-09-2024 Anion gap [Moles/Vol] 11 mmol/L Normal 7-17 [facility] Comment on above: Performed By: #### M GO, IPB, CHM7, HFP #### [facility] (DEFAULT) [address] [place] [address] 26880 Chloride [Moles/Vol] 100 mmol/L Normal 98-108 [facility] Comment on above: Performed By: #### M GO, IPB, CHM7, HFP #### [facility] (DEFAULT) [address] [place] [address] 91364 CO2 [Moles/Vol] 26 mmol/L Normal 21-31 [facility] Comment on above: Performed By: #### GA FUNES, CHM7, HFP #### [facility] (DEFAULT) [address] [place] [address] 77638 Creatinine [Mass/Vol] 0.97 mg/dL Normal 0.50-1.20 [facility] Comment on above: Performed By: #### GA FUNES, CHM7, HFP #### [facility] (DEFAULT) [address] [place] [address] 94073 GFR/1.73 sq M.predicted among non-blacks MDRD (S/P/Bld) [Vol rate/Area] 59 mL/min/{1.73_m2} Low >=60 [facility] Comment on above: Result Comment: Repo rted eGFR is based on the CKD-EPI 2020 equation using creatinine, age, and sex. Performed By: #### GA FUNES, KARL7, HFP #### [facility] (DEFAULT) [address] [place] [address] 22220 Glucose [Mass/Vol] 110 mg/dL Normal Nonfastin -179 mg/dL; Fastin-99 [facility] Comment on above: Performed By: #### GA FUNES, CARLM7, HFP #### [facility] (DEFAULT) [address] [place] [address] 30014 Osmolality [Osmolality] 283 mosm/kg Normal 278-305 [facility] Comment on above: Performed By: #### GA FUNES, CARLM7, HFP #### [facility] (DEFAULT) [address] [place] [address] 26112 Potassium [Moles/Vol] 4.2 mmol/L Normal 3.5-5.0 [facility] Comment on above: Performed By: #### GA FUNES, CHM7, HFP #### [facility] (DEFAULT) [address] [place] [address] 37450 Sodium [Moles/Vol] 133 mmol/L Low 135-145 [facility] Comment on above: Performed By: #### M GO, IPB, CHM7, HFP #### [facility] (DEFAULT) [address] [place] [address] 72496 Urea nitrogen [Mass/Vol] 20 mg/dL Normal 7-25 [facility] Comment on above: Performed By: #### M GO, IPB, CHM7, HFP #### [facility] (DEFAULT) [address] [place] [address] 25109 Urea nitrogen/Creatinine [Mass ratio] 21 mg/mg Normal [facility] Comment on above: Performed By: #### M GO, IPB, CHM7, HFP #### [facility] (DEFAULT) [address] [place] [address] 28214 HEPATIC FUNCTION PANELon Albumin [Mass/Vol] 3.7 g/dL Normal 3.5-5.0 [facility] Comment on above: Performed By: #### M GO, IPB, CHM7, HFP #### [facility] (DEFAULT) [address] [place] [address] 07236 ALP [Catalytic activity/Vol] 64 U/L Normal 32-126 [facility] Comment on above: Performed By: #### M GO, IPB, CHM7, HFP #### [facility] (DEFAULT) [address] [place] [address] 28633 ALT [Catalytic activity/Vol] 64 U/L High 9-48 [facility] Comment on above: Performed By: #### M GO, IPB, CHM7, HFP #### [facility] (DEFAULT) [address] [place] [address] 12845 AST [Catalytic activity/Vol] 41 U/L High 10-39 [facility] Comment on above: Performed By: #### M GO, IPB, CHM7, HFP #### [facility] (DEFAULT) [address] [place] [address] 81205 Bilirubin [Mass/Vol] 1.0 mg/dL Normal <1.5 [facility] Comment on above: Performed By: #### M GO, IPB, CHM7, HFP #### [facility] (DEFAULT) [address] [place] [address] 48164 Bilirubin.indirect [Mass/Vol] 0.2 mg/dL Normal <0.3 [facility] Comment on above: Performed By: #### M GO, IPB, CHM7, HFP #### [facility] (DEFAULT) [address] [place] [address] 34882 Protein [Mass/Vol] 5.9 g/dL Low 6.4-8.3 [facility] Comment on above: Performed By: #### M REMY, IPB, CHM7, HFP #### [facility] (DEFAULT) [address] [place] [address] 60315 Laboratory - Chemistry and C hemistry - challengeon 11-09-2024 Albumin [Mass/Vol] 3.7 g/dL 3.5 - 5.0 g/dL [facility] ALP [Catalytic activity/Vol] 64 U/L 32 - 126 U/L [facility] ALT [Catalytic activity/Vol] 64 U/L High 9 - 48 U/L [facility] Anion gap [Moles/Vol] 11 mmol/L 7 - 17 mmol/L [facility] AST [Catalytic activity/Vol] 41 U/L High 10 - 39 U/L [facility] Bilirubin [Mass/Vol] 1 mg/dL NINF - 1.5 mg/dL [facility] Bilirubin.direct [Mass/Vol] 0.2 mg/dL NINF - 0.3 mg/dL [facility] Chloride [Moles/Vol] 100 mmol/L 98 - 10 8 mmol/L [facility] CO2 [Moles/Vol] 26 mmol/L 21 - 31 mmol/L [facility] Creatinine [Mass/Vol] 0.97 mg/dL 0.50 - 1.20 mg/dL [facility] Glucose [Mass/Vol] 110 mg/dL 70 - 179 mg/dL [facility] Magnesium [Mass/Vol] 1.9 mg/dL 1.6 - 2 .6 mg/dL [facility] Osmolality Calc [Osmolality] 283 [facility] Phosphate [Mass/Vol] 3.6 mg/dL 2.2 - 4 .6 mg/dL [facility] Potassium [Moles/Vol] 4.2 mmol/L 3.5 - 5.0 mmol/L [facility] Protein [Mass/Vol] 5.9 g/dL Low 6.4 - 8.3 g/dL [facility] Sodium [Moles/Vol] 133 mmol/L Low 135 - 145 mmol/L [facility] Urea nitrogen [Mass/Vol] 20 mg/dL 7 - 25 mg/dL [facility] Urea nitrogen/Creatinine [Mass ratio] 21 mg/mg [facility] Laboratory - Coagulationon 0 11-09-2024 aPTT Coag (PPP) [Time] 31.6 s [facility] INR Coag (Bld) [Relative time] 1.1 {INR} 0.9 - 1.1 [facility] PT Coag (PPP) [Time] 14 s [facility] - Hematology and Cell countson 11-09-2024 Erythrocyte distribution width (RBC) [Ratio] 13.2 % 10.8 - 14.9 % [facility] Hematocrit (Bld) [Volume fraction] 28.5 % Low 34.9 - 44.3 % [facility] Hemoglobin (Bld) [Mass/Vol] 10.4 g/dL Low 11.4 - 15.2 g/dL [facility] MCH (RBC) [Entitic mass] 33.5 pg 25.9 - 33.9 pg [facility] MCHC (RBC) [Mass/Vol] 36.5 g/dL High 31.4 - 35.9 g/dL [facility] MCV (RBC) [Entitic vol] 91.9 fL 79.6 - 97.7 fL [facility] Platelet mean volume (Bld) [Entitic vol] 10.4 fL 8.5 - 12.2 fL [facility] Platelets (Bld) [#/Vol] 182 10*3/uL 150 - 393 K/uL [facility] RBC (Bld) [#/Vol] 3.1 10*6/uL Low [facility] WBC (Bld) [#/Vol] 6.17 10*3/uL 3.99 - 11.19 K/uL [facility] MAGNESIUMon 11-09-2024 Magnesium [Mass/Vol] 1.9 mg/dL Normal 1.6-2.6 [facility] Comment on above: Performed By: #### M GO, IPB, CHM7, HFP #### [facility] (DEFAULT) [address] [place] [address] No Panel Informationon 11-09 FABY Jacques - [...] this period of recording. Brittaney Ferraro MD [facility] Department of Neurology and Epilepsy [facility] eGFR, CKD-EPI, Female 57 Low - PINF [facility] Comment on above: Reported eGFR is bas ed on the CKD-EPI 2020 equation using creatinine, age, and sex. Interpretation and review of laboratory results Normal [facility] Interpretation and review of laboratory results Abnormal [facility] Interpretation and review of laboratory results Normal [facility] Interpretation and review of laboratory results Abnormal [facility] Radiology Study observation (narrative) [facility] PHOSPHATE, INORGANICon 11-09 Phosphorous 3.6 mg/dL Normal 2.2-4.6 [facility] Comment on above: Performed By: #### M GA ALBERTO CHM7, HFP #### [facility] (DEFAULT) [address] [place] [address] 11080 PT,INR,PTTon 11-09-2024 aPTT Coag (Bld) [Time] 31.6 s Normal 24.0-34.3 [facility] Comment on above: Performed By: #### M GA ALBERTO CHM7, HFP #### [facility] (DEFAULT) [address] [place] [address] 41678 INR Coag (PPP) [Relative time] 1.1 {INR} Normal 0.9-1.1 [facility] Comment on above: Performed By: #### M GO, IPB, CHM7, HFP #### [facility] (DEFAULT) [address] [place] [address] 30526 PT Coag (PPP) [Time] 14.0 s Normal 11.9-14.2 [facility] Comment on above: Performed By: #### M GO, IPB, CHM7, HFP #### [facility] (DEFAULT) [address] [place] [address] 29973 No Panel Informationon 11-08 [facility] 12 Lead EKGon 11-07-2024 12 Lead EKG Normal [facility] ALCOHOL (ETHANOL),BLOODon Alcohol, Serum <10 Normal <10 [facility] Comment on above: Order Comment: Non-f orensic. Performed By: #### M GO, IPB, CHM7, HFP #### [facility] (DEFAULT) [address] [place] [address] 86394 Absolute lymphocyte countOrd ered By: Dallas Anand on 11-07-2024 Lymphocytes Auto (Unsp spec) [#/Vol] 0.62 10*3/uL Low 0.83-4.51 [facility] Absolute neutrophil countOrd ered By: Dallas Anand on 11-07-2024 Neutrophils (Bld) [#/Vol] 5.3 10*3/uL 2.0-7.7 [facility] Activated partial thrombopla stin time (aPTT) in platelet poor plasma by coagulation aOrdered By: Dallas Anand on 11-07-2024 aPTT Coag (PPP) [Time] 33.0 s 24.1-36.2 [facility] Anion gap in Serum or Plasma Ordered By: Dallas Anand on 11-07-2024 Anion gap [Moles/Vol] 9 mmol/L 5-15 [facility] Automated lymphocyte count a s percentage of total leukocytesOrdered By: Dallas Anand on 11-07-2024 Lymphocytes/100 WBC Auto (Unsp spec) 9.3 % Low 19-41 [facility] BUN/creatinine ratioOrdered By: Dallas Anand on 11-07-2024 Urea nitrogen/Creatinine [Mass ratio] 22.3 mg/mg High 10-20 [facility] Basic Metabolic Profile (BMP )on 11-07-2024 BUN/CRE 22.3 RATIO High -20 [facility] Comment on above: Performed By: #### L 501.4021, L300.4310, L300.3900, L500.2500, L100.0100 ####[facility] [address] [place], [address] Calcium [Mass/Vol] 9.1 mg/dL Normal 7.6-11.0 [facility] Comment on above: Performed By: #### L 501.4021, L300.4310, L300.3900, L500.2500, L100.0100 ####[facility] [address] [place], [address] Chloride [Moles/Vol] 98 mmol/L Normal 98-108 [facility] Comment on above: Performed By: #### L 501.4021, L300.4310, L300.3900, L500.2500, L100.0100 ####[facility] [address] [place], [address] CO2 [Moles/Vol] 23.7 mmol/L Normal 21.0-32.0 [facility] Comment on above: Performed By: #### L 501.4021, L300.4310, L300.3900, L500.2500, L100.0100 ####[facility] [address] [place], [address] Creatinine [Mass/Vol] 1.04 mg/dL Normal 0.70-1.20 [facility] Comment on above: Performed By: #### L 501.4021, L300.4310, L300.3900, L500.2500, L100.0100 ####[facility] [address] [place], [address] ECRCL 30.99 ml/min Low 50-250 [facility] Comment on above: Performed By: #### L 501.4021, L300.4310, L300.3900, L500.2500, L100.0100 ####[facility] [address] [place], [address] GAP 9 Normal 5-15 [facility] Comment on above: Performed By: #### L 501.4021, L300.4310, L300.3900, L500.2500, L100.0100 ####[facility] [address] [place], [address] GFR/1.73 sq M.predicted among non-blacks MDRD (S/P/Bld) [Vol rate/Area] 54 mL/min/{1.73_m2} Low >60 [facility] Comment on above: Result Comment: mL/m in/1.73m2 CKD-EPI Creatinine Equation (2020) Performed By: #### L 501.4021, L300.4310, L300.3900, L500.2500, L100.0100 ####[facility] [address] [place], [address] Glucose [Mass/Vol] 101 mg/dL High 70-99 [facility] Comment on above: Performed By: #### L 501.4021, L300.4310, L300.3900, L500.2500, L100.0100 ####[facility] [address] [place], [address] Potassium [Moles/Vol] 4.5 mmol/L Normal 3.3-5.1 [facility] Comment on above: Performed By: #### L 501.4021, L300.4310, L300.3900, L500.2500, L100.0100 ####[facility] [address] [place], [address] Sodium [Moles/Vol] 131 mmol/L Low 133-145 [facility] Comment on above: Performed By: #### L 501.4021, L300.4310, L300.3900, L500.2500, L100.0100 ####[facility] [address] [place], [address] Urea nitrogen [Mass/Vol] 23 mg/dL High 4-19 [facility] Comment on above: Performed By: #### L 501.4021, L300.4310, L300.3900, L500.2500, L100.0100 ####[facility] [address] [place], [address] Basophil percentageOrdered B y: Dallas Anand on 11-07-2024 Basophils/100 WBC (Bld) 0.3 % 0-1 [facility] Bedside Glucoseon 11-07-2024 FINGERSTICK GLU 99 mg/dL Normal 74-106 [facility] Comment on above: Result Comment: REJI KUMAR OF PATIENT CARE PER NURSING PROTOCOL Performed By: #### L 501.080 ####[facility] [address] [place], [place], [id number] CBC AND ELECTRONIC DIFFon Abs Baso Auto < Normal 0.00-0.15 [facility] Comment on above: Performed By: #### M GO, IPB, CHM7, HFP #### [facility] (DEFAULT) [address] [address] Abs Eos Auto < Normal 0.00-0.42 [facility] Comment on above: Performed By: #### M GO, IPB, CHM7, HFP #### [facility] (DEFAULT) [address] [address] Basophils/100 WBC (Bld) 0.3 % Normal [facility] Comment on above: Performed By: #### M GO, IPB, CHM7, HFP #### [facility] (DEFAULT) [address] [address] DIFF STATUS Electronic Differential Normal [facility] Comment on above: Performed By: #### M GO, IPB, CHM7, HFP #### [facility] (DEFAULT) [address] [place] [address] 07224 Eosinophils/100 WBC (Bld) 0.4 % Normal [facility] Comment on above: Performed By: #### M GO, IPB, CHM7, HFP #### [facility] (DEFAULT) [address] [place] [address] 88970 Hematocrit (Bld) [Volume fraction] 29.0 % Low 34.9-44.3 [facility] Comment on above: Performed By: #### M GO, IPB, CHM7, HFP #### [facility] (DEFAULT) [address] [place] [address] 09182 Hemoglobin (Bld) [Mass/Vol] 10.5 g/dL Low 11.4-15.2 [facility] Comment on above: Performed By: #### M GO, IPB, CHM7, HFP #### [facility] (DEFAULT) [address] [place] [address] 51732 Immature Grans % 0.4 % Normal [facility] Comment on above: Performed By: #### M GO, IPB, CHM7, HFP #### [facility] (DEFAULT) [address] [place] [address] 12346 Immature Grans Absolute < Normal <=0.08 [facility] Comment on above: Performed By: #### M GO, IPB, CHM7, HFP #### [facility] (DEFAULT) [address] [place] [address] 43222 Lymphocytes (Bld) [#/Vol] 0.69 10*3/uL Low 1.16-3.51 [facility] Comment on above: Performed By: #### M GO, IPB, CHM7, HFP #### [facility] (DEFAULT) [address] [place] [address] 31182 Lymphocytes/100 WBC (Bld) 10.2 % Normal [facility] Comment on above: Performed By: #### M GO, IPB, CHM7, HFP #### [facility] (DEFAULT) [address] [place] [address] 63045 MCV (RBC) [Entitic vol] 91.5 fL Normal 79.6-97.7 [facility] Comment on above: Performed By: #### M GO, IPB, CHM7, HFP #### [facility] (DEFAULT) [address] [place] [address] 31326 Mean Cell Hgb 33.1 pg Normal 25.9-33.9 [facility] Comment on above: Performed By: #### M GO, IPB, CHM7, HFP #### [facility] (DEFAULT) [address] [place] [address] 02235 Mean Cell Hgb Conc 36.2 g/dL High 31.4-35.9 [facility] Comment on above: Performed By: #### M GO, IPB, CHM7, HFP #### [facility] (DEFAULT) [address] [place] [address] 56146 Monocytes (Bld) [#/Vol] 0.62 10*3/uL Normal 0.22-0.87 [facility] Comment on above: Performed By: #### M GO, IPB, CHM7, HFP #### [facility] (DEFAULT) [address] [place] [address] 84300 Monocytes/100 WBC (Bld) 9.2 % Normal [facility] Comment on above: Performed By: #### M GO, IPB, CHM7, HFP #### [facility] (DEFAULT) [address] [place] [address] 93420 Nucleated RBC 0.0 /100 WBC Normal <=0.2 [facility] Comment on above: Performed By: #### M GO, IPB, CHM7, HFP #### [facility] (DEFAULT) [address] [place] [address] 06244 Platelet mean volume (Bld) [Entitic vol] 10.0 fL Normal 8.5-12.2 [facility] Comment on above: Performed By: #### Harini ALBERTO IPB, CHM7, HFP #### [facility] (DEFAULT) [address] [place] [address] 44013 Platelets (Bld) [#/Vol] 169 10*3/uL Normal 150-393 [facility] Comment on above: Performed By: #### M GO, IPB, CHM7, HFP #### [facility] (DEFAULT) [address] [place] [address] 30717 RBC (Bld) [#/Vol] 3.17 10*6/uL Low 3.91-5.04 [facility] Comment on above: Performed By: #### Harini ALBERTO IPB, CHM7, HFP #### [facility] (DEFAULT) [address] [place] [address] 34074 RBC Distribution 13.1 % Normal 10.8-14.9 [facility] Comment on above: Performed By: #### Harini ALBERTO IPB, CHM7, HFP #### [facility] (DEFAULT) [address] [place] [address] 46610 Segs + Bands Auto 79.5 % Normal [facility] Comment on above: Performed By: #### M REMY IPB, CHM7, HFP #### [facility] (DEFAULT) [address] [place] [address] 90233 Segs + Bands,Absolute Auto 5.35 K/uL Normal 1.64-7.28 [facility] Comment on above: Performed By: #### Harini ALBERTO, IPB, CHM7, HFP #### [facility] (DEFAULT) [address] [place] [address] 89472 WBC (Bld) [#/Vol] 6.74 10*3/uL Normal 3.99-11.19 [facility] Comment on above: Performed By: #### M GO, IPB, CHM7, HFP #### [facility] (DEFAULT) [address] [place] [address] CBC W/Diff, Automatedon 06-0 -2024 Absolute Lymph 0.62 X10 3/uL Low 0.83-4.51 [facility] Comment on above: Performed By: #### L 501.4021, L300.4310, L300.3900, L500.2500, L100.0100 ####[facility] [address] [place], [address] Absolute Neut 5.3 X10 3/uL Normal 2.0-7.7 [facility] Comment on above: Performed By: #### L 501.4021, L300.4310, L300.3900, L500.2500, L100.0100 ####[facility] [address] [place], [address] Basophils/100 WBC (Bld) 0.3 % Normal 0-1 [facility] Comment on above: Performed By: #### L 501.4021, L300.4310, L300.3900, L500.2500, L100.0100 ####[facility] [address] [place], [address] Eosinophils/100 WBC (Bld) 0.4 % Normal 0-5 [facility] Comment on above: Performed By: #### L 501.4021, L300.4310, L300.3900, L500.2500, L100.0100 ####[facility] [address] [place], [address] Erythrocyte distribution width (RBC) [Ratio] 13.3 % Normal 11.6-14.6 [facility] Comment on above: Performed By: #### L 501.4021, L300.4310, L300.3900, L500.2500, L100.0100 ####[facility] [address] [place], [address] Hematocrit (Bld) [Volume fraction] 28.5 % Low 37-47 [facility] Comment on above: Performed By: #### L 501.4021, L300.4310, L300.3900, L500.2500, L100.0100 ####[facility] [address] [place], [address] Hemoglobin (Bld) [Mass/Vol] 10.2 g/dL Low 12.0-15.0 [facility] Comment on above: Performed By: #### L 501.4021, L300.4310, L300.3900, L500.2500, L100.0100 ####[facility] [address] [place], [address] IG% 0.900 Normal 0.0-0.9 [facility] Comment on above: Result Comment: IG% - Immature Granulocytes (promyelocytes, myelocytes andmetamyelocytes) > 1% indicates that a LEFT SHIFT is Present. Performed By: #### L 501.4021, L300.4310, L300.3900, L500.2500, L100.0100 ####[facility] [address] [place], [address] Lymphocytes/100 WBC (Bld) 9.3 % Low 19-41 [facility] Comment on above: Performed By: #### L 501.4021, L300.4310, L300.3900, L500.2500, L100.0100 ####[facility] [address] [place], [address] MCH (RBC) [Entitic mass] 33.0 pg High 27.0-32.0 [facility] Comment on above: Performed By: #### L 501.4021, L300.4310, L300.3900, L500.2500, L100.0100 ####[facility] [address] [place], [address] MCHC (RBC) [Mass/Vol] 35.8 g/dL Normal 32-36 [facility] Comment on above: Performed By: #### L 501.4021, L300.4310, L300.3900, L500.2500, L100.0100 ####[facility] [address] [place], [address] MCV (RBC) [Entitic vol] 92.2 fL Normal 81-99 [facility] Comment on above: Performed By: #### L 501.4021, L300.4310, L300.3900, L500.2500, L100.0100 ####[facility] [address] [place], [address] Monocytes/100 WBC (Bld) 9.9 % Normal 0-10 [facility] Comment on above: Performed By: #### L 501.4021, L300.4310, L300.3900, L500.2500, L100.0100 ####[facility] [address] [place], [address] Neutrophils/100 WBC (Bld) 79.2 % High 47-70 [facility] Comment on above: Performed By: #### L 501.4021, L300.4310, L300.3900, L500.2500, L100.0100 ####[facility] [address] [place], [address] Nucleated RBC (Bld) [#/Vol] 0 10*3/uL Normal 0-5 [facility] Comment on above: Performed By: #### L 501.4021, L300.4310, L300.3900, L500.2500, L100.0100 ####[facility] [address] [place], [address] Platelet mean volume (Bld) [Entitic vol] 9.8 fL Normal 6.2-12.0 [facility] Comment on above: Performed By: #### L 501.4021, L300.4310, L300.3900, L500.2500, L100.0100 ####[facility] [address] [place], [address] Platelets (Bld) [#/Vol] 194 10*3/uL Normal 150-450 [facility] Comment on above: Performed By: #### L 501.4021, L300.4310, L300.3900, L500.2500, L100.0100 ####[facility] [address] [place], [address] RBC (Bld) [#/Vol] 3.09 10*6/uL Low 4.2-5.4 [facility] Comment on above: Performed By: #### L 501.4021, L300.4310, L300.3900, L500.2500, L100.0100 ####[facility] [address] [place], [address] RDW SD 45.2 fl High 35.1-43.9 [facility] Comment on above: Performed By: #### L 501.4021, L300.4310, L300.3900, L500.2500, L100.0100 ####[facility] [address] [place], [address] WBC (Bld) [#/Vol] 6.7 10*3/uL Normal 4.4-11.0 [facility] Comment on above: Performed By: #### L 501.4021, L300.4310, L300.3900, L500.2500, L100.0100 ####[facility] [address] [place], [address] CH 7 - EDon 11-07-2024 Anion gap [Moles/Vol] 15 mmol/L Normal 7-17 [facility] Comment on above: Performed By: #### M GO, IPB, CHM7, HFP #### [facility] (DEFAULT) [address] [place] [address] Chloride [Moles/Vol] 100 mmol/L Normal 98-108 [facility] Comment on above: Performed By: #### M GA ALBERTO, CHM7, HFP #### [facility] (DEFAULT) [address] [place] [address] CO2 [Moles/Vol] 21 mmol/L Normal 21-31 [facility] Comment on above: Performed By: #### M GA ALBERTO, CHM7, HFP #### [facility] (DEFAULT) [address] [place] [address] Creatinine [Mass/Vol] 0.93 mg/dL Normal 0.50-1.20 [facility] Comment on above: Performed By: #### GA FUNES, CHM7, HFP #### [facility] (DEFAULT) [address] [place] [address] GFR/1.73 sq M.predicted among non-blacks MDRD (S/P/Bld) [Vol rate/Area] 62 mL/min/{1.73_m2} Normal >=60 [facility] Comment on above: Result Comment: Repo rted eGFR is based on the CKD-EPI 2020 equation using creatinine, age, and sex. Performed By: #### GA FUNES, KARL7, HFP #### [facility] (DEFAULT) [address] [place] [address] Glucose [Mass/Vol] 107 mg/dL Normal Nonfastin -179 mg/dL; Fastin-99 [facility] Comment on above: Performed By: #### GA FUNES, CHM7, HFP #### [facility] (DEFAULT) [address] [place] [address] Osmolality [Osmolality] 281 mosm/kg Normal 278-305 [facility] Comment on above: Performed By: #### GA FUNES, CHM7, HFP #### [facility] (DEFAULT) [address] [place] [address] Potassium [Moles/Vol] 4.5 mmol/L Normal 3.5-5.0 [facility] Comment on above: Performed By: #### M GO, IPB, CHM7, HFP #### [facility] (DEFAULT) [address] [place] [address], [place] [address] Sodium [Moles/Vol] 131 mmol/L Low 135-145 [facility] Comment on above: Performed By: #### M GO, IPB, CHM7, HFP #### [facility] (DEFAULT) [address] [place] [address] Urea nitrogen [Mass/Vol] 22 mg/dL Normal 7-25 [facility] Comment on above: Performed By: #### M GO, IPB, CHM7, HFP #### [facility] (DEFAULT) [address] [place] [address] Urea nitrogen/Creatinine [Mass ratio] 24 mg/mg Normal [facility] Comment on above: Performed By: #### M GO, IPB, CHM7, HFP #### [facility] (DEFAULT) [address] [place] [address] Cervical spine WO contras ton 11-07-2024 [...] IMPRESSION: No acute fracture or traumatic malalignment. [facility] Radiology Study observation (narrative) [facility] CT HEAD WITHOUT CONTRASTon 0 11-07-2024 CT [...] effect, or acute large territory infarct. Normal [facility] CT Head WO contraston 2024 IMPRESSION: [...] mass effect, or acute large territory infarct. [facility] Radiology Study observation (narrative) [facility] CT Head WO contrastOrdered B y: Zahida Yang on 11-07-2024 [facility] Work Phone: CT SPINE CERVICAL WITHOUT CO [...] No acute fracture or traumatic malalignment. Normal [facility] Carbon dioxide, total [Moles /volume] in Central venous bloodOrdered By: Dallas Anand on 11-07-2024 CO2 [Moles/Vol] 23.7 mmol/L 21.0-32.0 [facility] Chloride assayOrdered By: Mario Anand on 11-07-2024 Chloride [Moles/Vol] 98 mmol/L 98-108 [facility] Emergency Department Summary on 11-07-2024 Emergency Department Summary Normal [facility] Eosinophil percentageOrdered By: Dallas Anand on 11-07-2024 Eosinophils/100 WBC (Bld) 0.4 % 0-5 [facility] Erythrocyte distribution wid th ratioOrdered By: Dallasjamison Anand on 11-07-2024 Erythrocyte distribution width (RBC) [Ratio] 13.3 % 11.6-14.6 [facility] Erythrocyte distribution wid th standard deviationOrdered By: Dallas Anand on 11-07-2024 Erythrocyte distribution width (RBC) [Ratio] 45.2 fl High 35.1-43.9 [facility] Glomerular filtration rate ( GFR) estimation/1.73 sq m using serum, plasma, or whole bOrdered By: Dallas Anand on 11-07-2024 GFR/1.73 sq M.predicted among non-blacks MDRD (S/P/Bld) [Vol rate/Area] 54 mL/min/{1.73_m2} Low >60 [facility] Comment on above: mL/min/1.73m2 CKD-EP I Creatinine Equation (2020) Glucose measurement at bedsi deOrdered By: Dallas Anand on 11-07-2024 Glucose [Mass/Vol] 99 mg/dL 74-106 [facility] Comment on above: MANAGEMENT OF PATIEN T CARE PER NURSING PROTOCOL HIGH SENSITIVITY TROPONIN I - SINGLE ORDERon 11-07-2024 hs-Troponin I 9 ng/L Normal <34 [facility] Comment on above: Order Comment: Acute Coronary Syndrome (ACS): Initial Evaluation and Management: [email or web address] Performed By: #### L ABHSTI1, C7ED, TSH #### [facility] (DEFAULT) [address] [address] Hematocrit Auto (Bld) [Volum e fraction]Ordered By: Dallas Anand on 11-07-2024 Hematocrit (Bld) [Volume fraction] 28.5 % Low 37-47 [facility] Hemoglobin measurementOrdere d By: Dallasjamison Anand on 11-07-2024 Hemoglobin (Bld) [Mass/Vol] 10.2 g/dL Low 12.0-15.0 [facility] Immature granulocytes/100 WB C Auto (Bld)Ordered By: Dallasjamison Anand on 11-07-2024 Immature granulocytes/100 WBC (Bld) 0.900 % 0.0-0.9 [facility] Comment on above: IG% - Immature Granu locytes (promyelocytes, myelocytes and metamyelocytes) > 1% indicates that a LEFT SHIFT is Present. International normalized rat io (INR) calculationOrdered By: Dallasjamison Anand on 11-07-2024 INR Coag (Bld) [Relative time] 1.4 {INR} [facility] L499.0042on 11-07-2024 Trop T High Sen Normal <=14 [facility] Comment on above: Result Comment: Canc elled via OM: Order cancelled - Patient discharged Performed By: #### L 499.0042 ####[facility] [address] [place], [place], [id number] L499.0043on 11-07-2024 Trop T High Sen Normal <=14 [facility] Comment on above: Result Comment: Canc elled via OM: Order cancelled - Patient discharged Performed By: #### L 499.0043 ####[facility] [address] [place], [address] L501.4021on 11-07-2024 Trop T High Sen 21 ng/L High <=14 [facility] Comment on above: Performed By: #### L 501.4021, L300.4310, L300.3900, L500.2500, L100.0100 ####[facility] [address] [place], [address] Laboratory - Chemistry and C hemistry - challengeOrdered By: Annika Pitts on 11-07-2024 pH (U) 7.0 [pH] 5.0 - 7.0 [facility] Specific gravity (U) [Rel density] 1.014 1.001 - 1.035 [facility] Urobilinogen (U) [Mass/Vol] 1.0 E.U./dL 0.2 E.U/dL, 1.0 E.U/dL [facility] Laboratory - Chemistry and C hemistry - challengeon 11-07-2024 Anion gap [Moles/Vol] 15 mmol/L 7 - 17 mmol/L [facility] Chloride [Moles/Vol] 100 mmol/L 98 - 10 8 mmol/L [facility] CO2 [Moles/Vol] 21 mmol/L 21 - 31 mmol/L [facility] Creatinine [Mass/Vol] 0.93 mg/dL 0.50 - 1.20 mg/dL [facility] Glucose [Mass/Vol] 107 mg/dL 70 - 179 mg/dL [facility] Osmolality Calc [Osmolality] 281 [facility] Potassium [Moles/Vol] 4.5 mmol/L 3.5 - 5.0 mmol/L [facility] Sodium [Moles/Vol] 131 mmol/L Low 135 - 145 mmol/L [facility] Urea nitrogen [Mass/Vol] 22 mg/dL 7 - 25 mg/dL [facility] Urea nitrogen/Creatinine [Mass ratio] 24 mg/mg [facility] TSH Qn 1.934 m[IU]/L [facility] Troponin I.cardiac High sensitivity method [Mass/Vol] 9 ng/L NINF - 34 ng/L [facility] Base excess Calc (Bld) [Moles/Vol] -1.9000 mmol/L -3.0 - 3.0 mmol/L [facility] Calcium.ionized (Bld) [Mass/Vol] 4.45 mg/dL Low 4.60 - 5.30 mg/dL [facility] Carboxyhemoglobin (Bld) [Mass fraction] 1.6 % High NINF - 1.5 % [facility] CO2 (Bld) [Partial pressure] 29 mm[Hg] Low [facility] Glucose [Mass/Vol] 102 mg/dL 70 - 179 mg/dL [facility] HCO3 (Bld) [Moles/Vol] 22 mmol/L 22 - 29 mmol/L [facility] Lactate [Moles/Vol] 0.7 mmol/L 0.5 - 1. 6 mmol/L [facility] Methemoglobin (Bld) [Mass fraction] 1.1 % NINF - 1.5 % [facility] Oxygen (Bld) [Partial pressure] 106 mm[Hg] mm Hg [facility] Comment on above: Venous pO2 is not re commended for the evaluation of oxygen status, clinical correlation is recommended. pH (Bld) 7.48 [pH] High 7.32 - 7.43 [facility] Potassium [Moles/Vol] 4.3 mmol/L 3.5 - 5.0 mmol/L [facility] Sodium [Moles/Vol] 128 mmol/L Low 135 - 145 mmol/L [facility] Laboratory - Coagulationon 0 11-07-2024 INR Coag (Bld) [Relative time] 1.3 {INR} High 0.9 - 1.1 [facility] PT Coag (PPP) [Time] 15.8 s High [facility] Laboratory - Drug toxicology on 11-07-2024 Amphetamine+Methamphet amine Screen (U) [Mass/Vol] Not detected Cutoff: 500 ng/mL [facility] Barbiturates Ql (U) Not detected Cutoff: 200 ng/mL [facility] Benzodiazepines Ql (U) Not detected Cutof f: 200 ng/mL [facility] Buprenorphine Ql (U) Not detected Cutoff: 5 ng/mL [facility] Cannabinoids Screen Ql (U) Not detected Cutoff: 50 ng/mL [facility] Cocaine Ql (U) Not detected Cutoff: 150 ng/mL [facility] fentaNYL Ql (U) Not detected Cutoff: 1 ng/mL [facility] Methadone Ql (U) Not detected Cutoff: 300 ng/mL [facility] Opiates Ql (U) Not detected Cutoff: 300 ng/mL [facility] oxyCODONE Ql (U) Not detected Cutoff: 100 ng/mL [facility] Ethanol Ql (Bld) mg/dL NINF - 10 mg/dL [facility] Laboratory - Hematology and Cell countson 11-07-2024 Basophils (Bld) [#/Vol] K/uL 0.00 - 0.15 K/uL [facility] Basophils/100 WBC (Bld) 0.3 % [facility] Differential cell count method Nom (Bld) Electronic Differential O [facility] Eosinophils (Bld) [#/Vol] K/uL 0.00 - 0.42 K/uL [facility] Eosinophils/100 WBC (Bld) 0.4 % [facility] Erythrocyte distribution width (RBC) [Ratio] 13.1 % 10.8 - 14.9 % [facility] Hematocrit (Bld) [Volume fraction] 29 % Low 34.9 - 44.3 % [facility] Hemoglobin (Bld) [Mass/Vol] 10.5 g/dL Low 11.4 - 15.2 g/dL [facility] Immature granulocytes (Bld) [#/Vol] K/uL NINF - 0.08 K/uL [facility] Immature granulocytes/100 WBC (Bld) 0.4 % [facility] Lymphocytes (Bld) [#/Vol] 0.69 10*3/uL Low 1.16 - 3.51 K/uL [facility] Lymphocytes/100 WBC (Bld) 10.2 % [facility] MCH (RBC) [Entitic mass] 33.1 pg 25.9 - 33.9 pg [facility] MCHC (RBC) [Mass/Vol] 36.2 g/dL High 31.4 - 35.9 g/dL [facility] MCV (RBC) [Entitic vol] 91.5 fL 79.6 - 97.7 fL [facility] Monocytes (Bld) [#/Vol] 0.62 10*3/uL 0.22 - 0.87 K/uL [facility] Monocytes/100 WBC (Bld) 9.2 % [facility] Neutrophils (Bld) [#/Vol] 5.35 10*3/uL 1.64 - 7.28 K/uL [facility] Nucleated RBC/100 WBC (Bld) [Ratio] 0 % NINF [facility] Platelet mean volume (Bld) [Entitic vol] 10 fL 8.5 - 12.2 fL [facility] Platelets (Bld) [#/Vol] 169 10*3/uL 150 - 393 K/uL [facility] RBC (Bld) [#/Vol] 3.17 10*6/uL Low [facility] Segmented neutrophils/100 WBC (Bld) 79.5 % [facility] WBC (Bld) [#/Vol] 6.74 10*3/uL 3.99 - 11.19 K/uL [facility] Hematocrit (Bld) [Volume fraction] 33 % Low 34 - 46 % [facility] Hemoglobin (Bld) [Mass/Vol] 11.1 g/dL Low 11.4 - 15.2 g/dL [facility] Laboratory - Specimen inform ationOrdered By: Annika Pitts on 11-07-2024 Appearance (U) Clear Clear [facility] Color (U) Yellow Yellow [facility] Laboratory - Specimen inform ationon 11-07-2024 Specimen source Nom (Unsp spec) Venous [facility] Laboratory - UrinalysisOrder ed By: Annika Pitts on 11-07-2024 Bacteria LM Ql (Urine sed) PRESENT Abnormal ABSENT [facility] Epithelial cells.squamous LM Ql (Urine sed) 0-2/hpf 0-2/hpf, 3-5/hpf = 1+ [facility] Glucose Test strip (U) [Mass/Vol] Negative Negative [facility] Ketones (U) [Mass/Vol] Negative Negative [facility] Leukocyte esterase Test strip Ql (U) Moderate Abnormal Negative [facility] Nitrite Ql (U) Positive Abnormal Negative [facility] Protein (U) [Mass/Vol] Negative Negative [facility] RBC (U) [#/Vol] Negative Negative [facility] RBC LM.HPF (Urine sed) [#/Area] 0-2 [facility] WBC LM.HPF (Urine sed) [#/Area] 6 - 10 Abnormal [facility] MCV (mean corpuscular volume ) determinationOrdered By: Dallas Anand on 11-07-2024 MCV (RBC) [Entitic vol] 92.2 fL 81-99 [facility] Mean corpuscular hemoglobin (MCH) determinationOrdered By: Dallas Anand on 11-07-2024 MCH (RBC) [Entitic mass] 33.0 pg High 27.0-32.0 [facility] Mean corpuscular hemoglobin concentration (MCHC) determinationOrdered By: Dallas Anand on 11-07-2024 MCHC (RBC) [Mass/Vol] 35.8 g/dL 32-36 [facility] Mean platelet volume determi nationOrdered By: Dallas Anand on 11-07-2024 Platelet mean volume (Bld) [Entitic vol] 9.8 fL 6.2-12.0 [facility] Monocyte percentageOrdered B y: Dallas Anand on 11-07-2024 Monocytes/100 WBC (Bld) 9.9 % 0-10 [facility] Neutrophil percentageOrdered By: Dallas Anand on 11-07-2024 Neutrophils/100 WBC (Bld) 79.2 % High 47-70 [facility] No Panel InformationOrdered By: Annika Pitts on 11-07-2024 Interpretation and review of laboratory results Abnormal [facility] No Panel Informationon 11-07 Interpretation and review of laboratory results Normal [facility] For medical purposes only. Positive results are unconfirmed unless otherwise noted. [facility] eGFR, CKD-EPI, Female 62 - PINF [facility] Comment on above: Reported eGFR is bas ed on the CKD-EPI 2020 equation using creatinine, age, and sex. Interpretation and review of laboratory results Abnormal [facility] ABO/RH(D) TYPE AB NEG [facility] Specimen Expiration 11/10/2024 23:59 [facility] Interpretation and review of laboratory results Normal [facility] Interpretation and review of laboratory results Normal [facility] Interpretation and review of laboratory results Normal [facility] Interpretation and review of laboratory results Abnormal [facility] Interpretation and review of laboratory results Abnormal [facility] Interpretation and review of laboratory results Abnormal [facility] Oxyhemoglobin 96 % 94 - 98 % [facility] Nucleated red blood cell per centageOrdered By: Dallas Anand on 11-07-2024 Nucleated RBC/100 WBC (Bld) [Ratio] 0 % 0-5 [facility] PROTIME-INRon 11-07-2024 INR Coag (PPP) [Relative time] 1.3 {INR} High 0.9-1.1 [facility] Comment on above: Performed By: #### M GO, IPB, CHM7, HFP #### [facility] (DEFAULT) [address] [place] [address] PT Coag (PPP) [Time] 15.8 s High 11.9-14.2 [facility] Comment on above: Performed By: #### M GO, IPB, CHM7, HFP #### [facility] (DEFAULT) [address] [place] [address] Partial Thromboplast Timeon 11-07-2024 aPTT Coag (Bld) [Time] 33.0 s Normal 24.1-36.2 [facility] Comment on above: Performed By: #### L 501.4021, L300.4310, L300.3900, L500.2500, L100.0100 ####[facility] [address] [place], [address] Platelet countOrdered By: Mario Anand on 11-07-2024 Platelets (Bld) [#/Vol] 194 10*3/uL 150-450 [facility] Portable XR Chest Viewson IMPRESSION: No [...] disease or early developing edema. Clinically correlate. [facility] Radiology Study observation (narrative) [facility] Portable XR Chest ViewsOrder ed By: Adele Luna on 11-07-2024 [facility] Work Phone: Potassium measurement (mass/ volume)Ordered By: Dallas Anand on 11-07-2024 Potassium (Unsp spec) [Mass/Vol] 4.5 mmol/L 3.3-5.1 [facility] Prothrombin Time w/INRon INR Coag (PPP) [Relative time] 1.4 {INR} Normal [facility] Comment on above: Performed By: #### L 501.4021, L300.4310, L300.3900, L500.2500, L100.0100 ####[facility] [address] [place], [address] PT Coag (PPP) [Time] 17.1 s High 11.7-14.9 [facility] Comment on above: Performed By: #### L 501.4021, L300.4310, L300.3900, L500.2500, L100.0100 ####[facility] [address] [place], [address] Prothrombin timeOrdered By: Dallas Anand on 11-07-2024 PT Coag (PPP) [Time] 17.1 s High 11.7-14.9 [facility] RBC Auto (Bld) [#/Vol]Ordere d By: Dallas Anand on 11-07-2024 RBC (Bld) [#/Vol] 3.09 10*6/uL Low 4.2-5.4 [facility] STROKE Brain/Head without Co nton 11-07-2024 STROKE Brain/Head without Cont Normal [facility] Serum creatinine measurement (mass/volume)Ordered By: Dallas Anand on 11-07-2024 Creatinine [Mass/Vol] 1.04 mg/dL 0.70-1.20 [facility] Serum glucose measurement (m ass/volume)Ordered By: Dallas Anand on 11-07-2024 Glucose [Mass/Vol] 101 mg/dL High 70-99 [facility] Serum or plasma calcium ena urement (mass/volume)Ordered By: Dallasjamison Anand on 11-07-2024 Calcium [Mass/Vol] 9.1 mg/dL 7.6-11.0 [facility] Serum or plasma urea nitroge n measurement (mass/volume)Ordered By: Dallas Anand on 11-07-2024 Urea nitrogen [Mass/Vol] 23 mg/dL High 4-19 [facility] Sodium levelOrdered By: Dallas Anand on 11-07-2024 Sodium [Moles/Vol] 131 mmol/L Low 133-145 [facility] TSHon 11-07-2024 TSH 1.934 uIU/mL Normal 0.550-4.780 [facility] Comment on above: Performed By: #### M GA ALBERTO, CHM7, HFP #### [facility] (DEFAULT) [address] [place] [address] TYPE AND SCREENon 11-07-2024 ABO/RH(D) TYPE AB NEG Normal [facility] Comment on above: Performed By: #### M REMY IPB, CHM7, HFP #### [facility] (DEFAULT) [address] [place] [address] Specimen Expiration 11/10/2024 23:59 Normal [facility] Comment on above: Performed By: #### M REMY IPB, CHM7, HFP #### [facility] (DEFAULT) [address] [place] [address] Troponin T.cardiac [Mass/vol ume] in Serum or Plasma by High sensitivity methodOrdered By: Dallas Anand on 11-07-2024 Troponin T.cardiac High sensitivity method [Mass/Vol] 21 ng/L High <14 [facility] Comment on above: Delta: 16 on URINALYSIS REFLEX TO CULTURE PERFORMABLEon 11-07-2024 Appearance (U) Clear Normal Clear [facility] Comment on above: Order Comment: For i ndwelling catheters, specimen collection is acceptable on catheter day 1 and 2 only. ? Performed By: #### U [id number] #### [facility] (DEFAULT) [address] [address] Bacteria PRESENT Abnormal ABSENT [facility] Comment on above: Order Comment: For i ndwelling catheters, specimen collection is acceptable on catheter day 1 and 2 only. ? Performed By: #### U [id number] #### [facility] (DEFAULT) [address] [address] Blood Urine Negative Normal Negative [facility] Comment on above: Order Comment: For i ndwelling catheters, specimen collection is acceptable on catheter day 1 and 2 only. ? Performed By: #### U [id number] #### [facility] (DEFAULT) [address] [address] Color (U) Yellow Normal Yellow [facility] Comment on above: Order Comment: For i ndwelling catheters, specimen collection is acceptable on catheter day 1 and 2 only. ? Performed By: #### U [id number] #### [facility] (DEFAULT) [address] [address] Glucose Ql (U) Negative Normal Negative [facility] Comment on above: Order Comment: For i ndwelling catheters, specimen collection is acceptable on catheter day 1 and 2 only. ? Performed By: #### U [id number] #### [facility] (DEFAULT) [address] [address] Ketones Ql (U) Negative Normal Negative [facility] Comment on above: Order Comment: For i ndwelling catheters, specimen collection is acceptable on catheter day 1 and 2 only. ? Performed By: #### U [id number] #### [facility] (DEFAULT) [address] [place] [address] Leukocyte esterase Test strip Ql (U) Moderate Abnormal Negative [facility] Comment on above: Order Comment: For i ndwelling catheters, specimen collection is acceptable on catheter day 1 and 2 only. ? Performed By: #### U [id number] #### [facility] (DEFAULT) [address] [place] [address] Nitrites Urine Positive Abnormal Negative [facility] Comment on above: Order Comment: For i ndwelling catheters, specimen collection is acceptable on catheter day 1 and 2 only. ? Performed By: #### U [id number] #### [facility] (DEFAULT) [address] [place] [address] pH (U) 7.0 [pH] Normal 5.0-7.0 [facility] Comment on above: Order Comment: For i ndwelling catheters, specimen collection is acceptable on catheter day 1 and 2 only. ? Performed By: #### U [id number] #### [facility] [facility] (DEFAULT) [address] [place] [address] Protein Urine Negative Normal Negative [facility] Comment on above: Order Comment: For i ndwelling catheters, specimen collection is acceptable on catheter day 1 and 2 only. ? Performed By: #### U [id number] #### [facility] (DEFAULT) [address] [place] [address] RBC Urine 0-2 Normal 0-2 [facility] Comment on above: Order Comment: For i ndwelling catheters, specimen collection is acceptable on catheter day 1 and 2 only. ? Performed By: #### U [id number] #### [facility] (DEFAULT) [address] [place] [address] Specific Girard Urine 1.014 Normal 1.001-1.035 O [facility] Comment on above: Order Comment: For i ndwelling catheters, specimen collection is acceptable on catheter day 1 and 2 only. ? Performed By: #### U [id number] #### [facility] (DEFAULT) [address] [address] Squamous/Epithelial Cells, Urine 0-2/hpf Normal 0-2/hpf, 3-5/hpf = 1+ [facility] Comment on above: Order Comment: For i ndwelling catheters, specimen collection is acceptable on catheter day 1 and 2 only. ? Performed By: #### U [id number] #### U [facility] (DEFAULT) [address] [address] Urobilinogen Urine 1.0 E.U./dL Normal 0.2 E.U/d L, 1.0 E.U/dL [facility] Comment on above: Order Comment: For i ndwelling catheters, specimen collection is acceptable on catheter day 1 and 2 only. ? Performed By: #### U [id number] #### U [facility] (DEFAULT) [address] [address] WBC Urine 6 - 10 Abnormal 0 - 5 [facility] Comment on above: Order Comment: For i ndwelling catheters, specimen collection is acceptable on catheter day 1 and 2 only. ? Performed By: #### U [id number] #### U [facility] (DEFAULT) [address] [address] URINE DRUG SCREEN 1011-07 Amphetamine/Methamphet amine Not detected Normal Cutoff: 500 ng/mL [facility] Comment on above: Order Comment: For m edical purposes only. Positive results are unconfirmed unless otherwise noted. Performed By: #### M GO, IPB, CHM7, HFP #### [facility] (DEFAULT) [address] [address] Barbiturates Not detected Normal Cutoff: 200 ng/mL [facility] Comment on above: Order Comment: For m edical purposes only. Positive results are unconfirmed unless otherwise noted. Performed By: #### M GO, IPB, CHM7, HFP #### [facility] (DEFAULT) [address] [address] Benzodiazepines Not detected Normal Cutoff: 200 ng/mL [facility] Comment on above: Order Comment: For m edical purposes only. Positive results are unconfirmed unless otherwise noted. Performed By: #### M GO, IPB, CHM7, HFP #### [facility] (DEFAULT) [address] [place] [address] Buprenorphine Not detected Normal Cutoff: 5 ng/mL [facility] Comment on above: Order Comment: For m edical purposes only. Positive results are unconfirmed unless otherwise noted. Performed By: #### M GO, IPB, CHM7, HFP #### [facility] (DEFAULT) [address] [place] [address] Cannabinoids Screen Ql (U) Not detected Normal Cutoff: 50 ng/mL [facility] Comment on above: Order Comment: For m edical purposes only. Positive results are unconfirmed unless otherwise noted. Performed By: #### M GO, IPB, CHM7, HFP #### [facility] (DEFAULT) [address] [place] [address] Cocaine Not detected Normal Cutoff: 150 ng/mL [facility] Comment on above: Order Comment: For m edical purposes only. Positive results are unconfirmed unless otherwise noted. Performed By: #### M GO, IPB, CHM7, HFP #### [facility] (DEFAULT) [address] [place] [address] Fentanyl Not detected Normal Cutoff: 1 ng/mL [facility] Comment on above: Order Comment: For m edical purposes only. Positive results are unconfirmed unless otherwise noted. Performed By: #### M GO, IPB, CHM7, HFP #### [facility] (DEFAULT) [address] [place] [address] Methadone Not detected Normal Cutoff: 300 ng/mL [facility] Comment on above: Order Comment: For m edical purposes only. Positive results are unconfirmed unless otherwise noted. Performed By: #### M GO, IPB, CHM7, HFP #### [facility] (DEFAULT) [address] [place] [address] Opiates Not detected Normal Cutoff: 300 ng/mL [facility] Comment on above: Order Comment: For m edical purposes only. Positive results are unconfirmed unless otherwise noted. Performed By: #### M GA ALBERTO, CHM7, HFP #### U [facility] (DEFAULT) [address] [address] Oxycodone Not detected Normal Cutoff: 100 ng/mL [facility] Comment on above: Order Comment: For m edical purposes only. Positive results are unconfirmed unless otherwise noted. Performed By: #### M GA ALBERTO, CHM7, HFP #### [facility] (DEFAULT) [address] [address] VENOUS BLOOD GAS (FULL PANEL )on 11-07-2024 Base Excess -1.9 mmol/L Normal -3.0-3.0 [facility] Comment on above: Performed By: #### Eva SVALL #### [facility] (DEFAULT) [address] [address] Carboxyhemoglobin 1.6 % High <=1.5 [facility] Comment on above: Performed By: #### Eva SVALL #### [facility] (DEFAULT) [address] [address] Glucose [Mass/Vol] 102 mg/dL Normal Nonfastin g Glucose: 70-179 [facility] Comment on above: Performed By: #### G SVALL #### [facility] (DEFAULT) [address] [address] HCO3 (Bld) [Moles/Vol] 22 mmol/L Normal 22-29 [facility] Comment on above: Performed By: #### G SVALL #### [facility] (DEFAULT) [address] [address] Hematocrit (Bld) [Volume fraction] 33 % Low 34-46 [facility] Comment on above: Performed By: #### G SVALL #### [facility] (DEFAULT) [address] [address] Hemoglobin (Bld) [Mass/Vol] 11.1 g/dL Low 11.4-15.2 [facility] Comment on above: Performed By: #### G SVALL #### [facility] (DEFAULT) [address] [place] [address] Ionized Calcium, Whole Blood 4.45 mg/dL Low 4.60-5.30 [facility] Comment on above: Performed By: #### Eva SVALL #### [facility] (DEFAULT) [address] [place] [address] Lactate, Whole Blood 0.7 mmol/L Normal 0.5-1.6 [facility] Comment on above: Performed By: #### Eva SVALL #### [facility] (DEFAULT) [address] [place] [address] Methemoglobin 1.1 % Normal <=1.5 [facility] Comment on above: Performed By: #### Eva SVALL #### [facility] (DEFAULT) [address] [place] [address] Oxygen saturation in Blood 99 % High 70-80 [facility] Comment on above: Performed By: #### Eva SVALL #### [facility] (DEFAULT) [address] [place] [address] Oxyhemoglobin 96 % Normal 94-98 [facility] Comment on above: Performed By: #### G SVALL #### [facility] (DEFAULT) [address] [place] [address] pCO2, Venous 29 mm Hg Low 36-52 [facility] Comment on above: Performed By: #### Eva SVALL #### [facility] (DEFAULT) [address] [place] [address] pH, Venous 7.48 High 7.32-7.43 [facility] Comment on above: Performed By: #### G SVALL #### [facility] (DEFAULT) [address] [place] [address] pO2, Venous 106 mm Hg Normal [facility] Comment on above: Result Comment: Veno us pO2 is not recommended for the evaluation of oxygen status, clinical correlation is recommended. Performed By: #### G SVALL #### [facility] (DEFAULT) [address] [place] [address] Potassium [Moles/Vol] 4.3 mmol/L Normal 3.5-5.0 [facility] Comment on above: Performed By: #### G SVALL #### U [facility] (DEFAULT) [address] [place] [address] Sodium [Moles/Vol] 128 mmol/L Low 135-145 [facility] Comment on above: Performed By: #### G SVALL #### U [facility] (DEFAULT) [address] [place] [address] Specimen type Nom (Spec) Venous Normal [facility] Comment on above: Performed By: #### G SVALL #### [facility] (DEFAULT) [address] [place] [address] Vital signson 11-07-2024 Oxygen saturation in Blood 99 % High 70 - 80 % [facility] White blood cell (WBC) count Ordered By: Dallas Anand on 11-07-2024 WBC (Bld) [#/Vol] 6.7 10*3/uL 4.4-11.0 [facility] XR CHEST 1 VIEW PORTABLEon 0 11-07-2024 [...] or early developing edema. Clinically correlate. Normal [facility] XR PELVIS 1-2 VIEWSon 2024 XR [...] pubic symphysis. No displaced fracture evident. Normal [facility] XR Pelvis 2 Viewson 11-08-19 IMPRESSION: [...] the pubic symphysis. No displaced fracture evident. [facility] Radiology Study observation (narrative) [facility] XR Pelvis 2 ViewsOrdered By: Damien Beasley on 11-07-2024 [facility] Work Phone: Absolute lymphocyte countOrd ered By: Hayden Sadler on 09-27-2024 Lymphocytes Auto (Unsp spec) [#/Vol] 0.70 10*3/uL Low 0.83-4.51 [facility] Absolute neutrophil countOrd ered By: Hayden Sadler on 09-27-2024 Neutrophils (Bld) [#/Vol] 5.1 10*3/uL 2.0-7.7 [facility] Activated partial thrombopla stin time (aPTT) in platelet poor plasma by coagulation aOrdered By: Hayden Sadler on 09-27-2024 aPTT Coag (PPP) [Time] 32.4 s 24.1-36.2 [facility] Anion gap in Serum or Plasma Ordered By: Hayden Sadler on 09-27-2024 Anion gap [Moles/Vol] 10 mmol/L 5-15 [facility] Automated lymphocyte count a s percentage of total leukocytesOrdered By: Hayden Sadler on 09-27-2024 Lymphocytes/100 WBC Auto (Unsp spec) 10.8 % Low 19-41 [facility] BUN/creatinine ratioOrdered By: Hayden Sadler on 09-27-2024 Urea nitrogen/Creatinine [Mass ratio] 23.3 mg/mg High 10-20 [facility] Basic Metabolic Profile (BMP )on 09-27-2024 BUN/CRE 23.3 RATIO High 10-20 [facility] Comment on above: Performed By: #### L 500.2500, L501.4021, L100.0100 ####[facility] [address] [place], [place], [id number] Calcium [Mass/Vol] 9.3 mg/dL Normal 7.6-11.0 [facility] Comment on above: Performed By: #### L 500.2500, L501.4021, L100.0100 ####[facility] [address] [place], [address] Chloride [Moles/Vol] 95 mmol/L Low 98-108 [facility] Comment on above: Performed By: #### L 500.2500, L501.4021, L100.0100 ####[facility] [address] [place], [address] CO2 [Moles/Vol] 22.8 mmol/L Normal 21.0-32.0 [facility] Comment on above: Performed By: #### L 500.2500, L501.4021, L100.0100 ####[facility] [address] [place], [address] Creatinine [Mass/Vol] 0.97 mg/dL Normal 0.70-1.20 [facility] Comment on above: Performed By: #### L 500.2500, L501.4021, L100.0100 ####[facility] [address] [place], [address] ECRCL 33.23 ml/min Low 50-250 [facility] Comment on above: Performed By: #### L 500.2500, L501.4021, L100.0100 ####[facility] [address] [place], [address] GAP 10 Normal 5-15 [facility] Comment on above: Performed By: #### L 500.2500, L501.4021, L100.0100 ####[facility] [address] [place], [address] GFR/1.73 sq M.predicted among non-blacks MDRD (S/P/Bld) [Vol rate/Area] 59 mL/min/{1.73_m2} Low >60 [facility] Comment on above: Result Comment: mL/m in/1.73m2 CKD-EPI Creatinine Equation (2020) Performed By: #### L 500.2500, L501.4021, L100.0100 ####[facility] [address] [place], [address] Glucose [Mass/Vol] 160 mg/dL High 70-99 [facility] Comment on above: Performed By: #### L 500.2500, L501.4021, L100.0100 ####[facility] [address] [place], [address] Potassium [Moles/Vol] 4.6 mmol/L Normal 3.3-5.1 [facility] Comment on above: Performed By: #### L 500.2500, L501.4021, L100.0100 ####[facility] [address] [place], [address] Sodium [Moles/Vol] 128 mmol/L Low 133-145 [facility] Comment on above: Performed By: #### L 500.2500, L501.4021, L100.0100 ####[facility] [address] [place], [address] Urea nitrogen [Mass/Vol] 23 mg/dL High 4-19 [facility] Comment on above: Performed By: #### L 500.2500, L501.4021, L100.0100 ####[facility] [address] [place], [address] Basophil percentageOrdered B y: Hayden Doroteo on 09-27-2024 Basophils/100 WBC (Bld) 0.3 % 0-1 [facility] CBC W/Diff, Automatedon - Absolute Lymph 0.70 X10 3/uL Low 0.83-4.51 [facility] Comment on above: Performed By: #### L 500.2500, L501.4021, L100.0100 ####[facility] [address] [place], [address] Absolute Neut 5.1 X10 3/uL Normal 2.0-7.7 [facility] Comment on above: Performed By: #### L 500.2500, L501.4021, L100.0100 ####[facility] [address] [place], [address] Basophils/100 WBC (Bld) 0.3 % Normal 0-1 [facility] Comment on above: Performed By: #### L 500.2500, L501.4021, L100.0100 ####[facility] [address] [place], [address] Eosinophils/100 WBC (Bld) 1.1 % Normal 0-5 [facility] Comment on above: Performed By: #### L 500.2500, L501.4021, L100.0100 ####[facility] [address] [place], [address] Erythrocyte distribution width (RBC) [Ratio] 13.8 % Normal 11.6-14.6 [facility] Comment on above: Performed By: #### L 500.2500, L501.4021, L100.0100 ####[facility] [address] [place], [address] Hematocrit (Bld) [Volume fraction] 31.3 % Low 37-47 [facility] Comment on above: Performed By: #### L 500.2500, L501.4021, L100.0100 ####[facility] [address] [place], [address] Hemoglobin (Bld) [Mass/Vol] 11.0 g/dL Low 12.0-15.0 [facility] Comment on above: Performed By: #### L 500.2500, L501.4021, L100.0100 ####[facility] [address] [place], [address] IG% 0.800 Normal 0.0-0.9 [facility] Comment on above: Result Comment: IG% - Immature Granulocytes (promyelocytes, myelocytes andmetamyelocytes) > 1% indicates that a LEFT SHIFT is Present. Performed By: #### L 500.2500, L501.4021, L100.0100 ####[facility] [address] [place], [address] Lymphocytes/100 WBC (Bld) 10.8 % Low 19-41 [facility] Comment on above: Performed By: #### L 500.2500, L501.4021, L100.0100 ####[facility] [address] [place], [address] MCH (RBC) [Entitic mass] 32.4 pg High 27.0-32.0 [facility] Comment on above: Performed By: #### L 500.2500, L501.4021, L100.0100 ####[facility] [address] [place], [address] MCHC (RBC) [Mass/Vol] 35.1 g/dL Normal 32-36 [facility] Comment on above: Performed By: #### L 500.2500, L501.4021, L100.0100 ####[facility] [address] [place], [address] MCV (RBC) [Entitic vol] 92.3 fL Normal 81-99 [facility] Comment on above: Performed By: #### L 500.2500, L501.4021, L100.0100 ####[facility] [address] [place], [address] Monocytes/100 WBC (Bld) 8.3 % Normal 0-10 [facility] Comment on above: Performed By: #### L 500.2500, L501.4021, L100.0100 ####[facility] [address] [place], [address] Neutrophils/100 WBC (Bld) 78.7 % High 47-70 [facility] Comment on above: Performed By: #### L 500.2500, L501.4021, L100.0100 ####[facility] [address] [place], [address] Nucleated RBC (Bld) [#/Vol] 0 10*3/uL Normal 0-5 [facility] Comment on above: Performed By: #### L 500.2500, L501.4021, L100.0100 ####[facility] [address] [place], [address] Platelet mean volume (Bld) [Entitic vol] 9.9 fL Normal 6.2-12.0 [facility] Comment on above: Performed By: #### L 500.2500, L501.4021, L100.0100 ####[facility] [address] [place], [address] Platelets (Bld) [#/Vol] 219 10*3/uL Normal 150-450 [facility] Comment on above: Performed By: #### L 500.2500, L501.4021, L100.0100 ####[facility] [address] [place], [address] RBC (Bld) [#/Vol] 3.39 10*6/uL Low 4.2-5.4 [facility] Comment on above: Performed By: #### L 500.2500, L501.4021, L100.0100 ####[facility] [address] [place], [address] RDW SD 46.5 fl High 35.1-43.9 [facility] Comment on above: Performed By: #### L 500.2500, L501.4021, L100.0100 ####[facility] [address] [place], [address] WBC (Bld) [#/Vol] 6.5 10*3/uL Normal 4.4-11.0 [facility] Comment on above: Performed By: #### L 500.2500, L501.4021, L100.0100 ####[facility] [address] [place], [address] Carbon dioxide, total [Moles /volume] in Central venous bloodOrdered By: Hayden Sadler on 09-27-2024 CO2 [Moles/Vol] 22.8 mmol/L 21.0-32.0 [facility] Chest PA and Lateralon 09-27 Chest PA and Lateral Normal [facility] Chloride assayOrdered By: Delfin Sadler on 09-27-2024 Chloride [Moles/Vol] 95 mmol/L Low 98-108 [facility] Emergency Department Summary on 09-27-2024 Emergency Department Summary Normal [facility] Eosinophil percentageOrdered By: Hayden Sadler on 09-27-2024 Eosinophils/100 WBC (Bld) 1.1 % 0-5 [facility] Erythrocyte distribution wid th (RBC) [Ratio]Ordered By: Hayden Sadler on 09-27-2024 Erythrocyte distribution width (RBC) [Entitic vol] 46.5 fL High 35.1-43.9 [facility] Erythrocyte distribution wid th ratioOrdered By: Hayden Sadler on 09-27-2024 Erythrocyte distribution width (RBC) [Ratio] 13.8 % 11.6-14.6 [facility] Erythrocyte distribution wid th standard deviationOrdered By: Hayden Sadler on 09-27-2024 Erythrocyte distribution width (RBC) [Ratio] 46.5 fl High 35.1-43.9 [facility] Estimation of creatinine guido aranceOrdered By: Hayden Sadler on 09-27-2024 Estimated Creatinine Clearance Calc 33.23 ml/min Low 50-250 [facility] GFR/1.73 sq M.predicted maicol g non-blacks MDRD (S/P/Bld) [Vol rate/Area]Ordered By: Hayden Sadler on 09-27-2024 Estimated GFR (MDRD) Non-Af Amer 59 Low >60 [facility] Comment on above: mL/min/1.73m2 CKD-EP I Creatinine Equation (2020) Glomerular filtration rate ( GFR) estimation/1.73 sq m using serum, plasma, or whole bOrdered By: Hayden Sadler on 09-27-2024 GFR/1.73 sq M.predicted among non-blacks MDRD (S/P/Bld) [Vol rate/Area] 59 mL/min/{1.73_m2} Low >60 [facility] Comment on above: mL/min/1.73m2 CKD-EP I Creatinine Equation (2020) Hematocrit Auto (Bld) [Volum e fraction]Ordered By: Hayden Sadler on 09-27-2024 Hematocrit (Bld) [Volume fraction] 31.3 % Low 37-47 [facility] Hemoglobin measurementOrdere d By: Hayden Sadler on 09-27-2024 Hemoglobin (Bld) [Mass/Vol] 11.0 g/dL Low 12.0-15.0 [facility] Immature granulocytes/100 WB C Auto (Bld)Ordered By: Hayden Sadler on 09-27-2024 Immature granulocytes/100 WBC (Bld) 0.800 % 0.0-0.9 [facility] Comment on above: IG% - Immature Granu locytes (promyelocytes, myelocytes and metamyelocytes) > 1% indicates that a LEFT SHIFT is Present. International normalized rat io (INR) calculationOrdered By: Hayden Sadler on 09-27-2024 INR Coag (Bld) [Relative time] 1.1 {INR} [facility] L499.0042on 09-27-2024 Trop T High Sen 14 ng/L Normal <=14 [facility] Comment on above: Performed By: #### L 499.0042 ####[facility] [address] [place], [address] L499.0043on 09-27-2024 Trop T High Sen Normal <=14 [facility] Comment on above: Result Comment: CANC ELLATION ORDER Performed By: #### L 499.0043 ####[facility] [address] [place], [address] L501.4021on 09-27-2024 Trop T High Sen 16 ng/L High <=14 [facility] Comment on above: Performed By: #### L 500.2500, L501.4021, L100.0100 ####[facility] [address] [place], [address] Lymphocytes Auto (Unsp spec) [#/Vol]Ordered By: Hayden Sadler on 09-27-2024 Lymphocytes (Bld) [#/Vol] 0.70 10*3/uL Low 0.83-4.51 [facility] Lymphocytes/100 WBC Auto (Un sp spec)Ordered By: Hayden Sadler on 09-27-2024 Lymphocytes/100 WBC (Bld) 10.8 % Low 19-41 [facility] MCV (mean corpuscular volume ) determinationOrdered By: Hayden Sadler on 09-27-2024 MCV (RBC) [Entitic vol] 92.3 fL 81-99 [facility] Mean corpuscular hemoglobin (MCH) determinationOrdered By: Hayden Sadler on 09-27-2024 MCH (RBC) [Entitic mass] 32.4 pg High 27.0-32.0 [facility] Mean corpuscular hemoglobin concentration (MCHC) determinationOrdered By: Hayden Sadler on 09-27-2024 MCHC (RBC) [Mass/Vol] 35.1 g/dL 32-36 [facility] Mean platelet volume determi nationOrdered By: Hayden Sadler on 09-27-2024 Platelet mean volume (Bld) [Entitic vol] 9.9 fL 6.2-12.0 [facility] Monocyte percentageOrdered B y: Hayden Sadler on 09-27-2024 Monocytes/100 WBC (Bld) 8.3 % 0-10 [facility] Neutrophil percentageOrdered By: Hayden Sadler on 09-27-2024 Neutrophils/100 WBC (Bld) 78.7 % High 47-70 [facility] Nucleated red blood cell per centageOrdered By: Hayden Sadler on 09-27-2024 Nucleated RBC/100 WBC (Bld) [Ratio] 0 % 0-5 [facility] Partial Thromboplast Timeon 09-27-2024 aPTT Coag (Bld) [Time] 32.4 s Normal 24.1-36.2 [facility] Comment on above: Performed By: #### L 300.4310, L300.3900 ####[facility] [address] [place], [address] Platelet countOrdered By: Delfin Sadler on 09-27-2024 Platelets (Bld) [#/Vol] 219 10*3/uL 150-450 [facility] Potassium (Unsp spec) [Mass/ Vol]Ordered By: Hayden Sadler on 09-27-2024 Potassium [Moles/Vol] 4.6 mmol/L 3.3-5.1 [facility] Potassium measurement (mass/ volume)Ordered By: Hayden Sadler on 09-27-2024 Potassium (Unsp spec) [Mass/Vol] 4.6 mmol/L 3.3-5.1 [facility] Prothrombin Time w/INRon INR Coag (PPP) [Relative time] 1.1 {INR} Normal [facility] Comment on above: Performed By: #### L 300.4310, L300.3900 ####[facility] [address] [place], [address] PT Coag (PPP) [Time] 14.8 s Normal 11.7-14.9 [facility] Comment on above: Performed By: #### L 300.4310, L300.3900 ####[facility] [address] [place], [address] Prothrombin timeOrdered By: Hayden Sadler on 09-27-2024 PT Coag (PPP) [Time] 14.8 s 11.7-14.9 [facility] RBC Auto (Bld) [#/Vol]Ordere d By: Hayden Sadler on 09-27-2024 RBC (Bld) [#/Vol] 3.39 10*6/uL Low 4.2-5.4 [facility] Serum creatinine measurement (mass/volume)Ordered By: Hayden Sadler on 09-27-2024 Creatinine [Mass/Vol] 0.97 mg/dL 0.70-1.20 [facility] Serum glucose measurement (m ass/volume)Ordered By: Hayden Sadler on 09-27-2024 Glucose [Mass/Vol] 160 mg/dL High 70-99 [facility] Serum or plasma calcium ena urement (mass/volume)Ordered By: Hayden Sadler on 09-27-2024 Calcium [Mass/Vol] 9.3 mg/dL 7.6-11.0 [facility] Serum or plasma urea nitroge n measurement (mass/volume)Ordered By: Hayden Sadler on 09-27-2024 Urea nitrogen [Mass/Vol] 23 mg/dL High 4-19 [facility] Sodium levelOrdered By: Naomi Sadler on 09-27-2024 Sodium [Moles/Vol] 128 mmol/L Low 133-145 [facility] Troponin T.cardiac High sens itivity method [Mass/Vol]Ordered By: Hayden Sadler on 09-27-2024 Troponin T High Sensitivity 16 ng/L High <14 [facility] Troponin T High Sensitivity 2 Hour 14 ng/L <14 [facility] Troponin T.cardiac [Mass/vol ume] in Serum or Plasma by High sensitivity methodOrdered By: Hayden Sadler on 09-27-2024 Troponin T.cardiac High sensitivity method [Mass/Vol] 16 ng/L High <14 [facility] Troponin T.cardiac High sensitivity method [Mass/Vol] 14 ng/L <14 [facility] White blood cell (WBC) count Ordered By: Hayden Sadler on 09-27-2024 WBC (Bld) [#/Vol] 6.5 10*3/uL 4.4-11.0 [facility] aPTT Coag (PPP) [Time]Ordere d By: Hayden Sadler on 09-27-2024 aPTT Coag (Bld) [Time] 32.4 s 24.1-36.2 [facility] Basic Metabolic Profile (BMP )on 07-24-2024 BUN/CRE 26.3 RATIO High 10-20 [facility] Comment on above: Performed By: #### L 500.2500 ####[facility] [address] [place], [address] CA,Total 9.4 mg/dL Normal 8.5-10.1 [facility] Comment on above: Performed By: #### L 500.2500 ####[facility] [address] [place], [address] Chloride [Moles/Vol] 97 mmol/L Low 98-107 [facility] Comment on above: Performed By: #### L 500.2500 ####[facility] [address] [place], [address] CO2 [Moles/Vol] 24.0 mmol/L Normal 21.0-32.0 [facility] Comment on above: Performed By: #### L 500.2500 ####[facility] [address] [place], [address] Creatinine [Mass/Vol] 0.80 mg/dL Normal 0.55-1.02 [facility] Comment on above: Result Comment: The validity of the calculated GFR GFRAA in patients over70 years has not been determined. Clinical correlation isessential. Performed By: #### L 500.2500 ####[facility] [address] [place], [address] EST GFR - AA 89 mL/min Normal >60 [facility] Comment on above: Result Comment: Afri can Congolese GFR Calc Performed By: #### L 500.2500 ####[facility] [address] [place], [address] GAP 8 Normal 5-15 [facility] Comment on above: Performed By: #### L 500.2500 ####[facility] [address] [place], [address] GFR/1.73 sq M.predicted among non-blacks MDRD (S/P/Bld) [Vol rate/Area] 74 mL/min/{1.73_m2} Normal >60 [facility] Comment on above: Result Comment: Non- GFR Calc Performed By: #### L 500.2500 ####[facility] [address] [place], [address] Glucose [Mass/Vol] 120 mg/dL High 74-106 [facility] Comment on above: Result Comment: Fast ing Glucose result from 100 to 125 mg/dLsuggests IMPAIRED HOMEOSTASIS per A.D.A. criteria. Performed By: #### L 500.2500 ####[facility] [address] [place], [address] Potassium [Moles/Vol] 4.5 mmol/L Normal 3.5-5.1 [facility] Comment on above: Performed By: #### L 500.2500 ####[facility] [address] [place], [address] Sodium [Moles/Vol] 129 mmol/L Low 136-145 [facility] Comment on above: Performed By: #### L 500.2500 ####[facility] [address] [place], [address] Urea nitrogen [Mass/Vol] 21 mg/dL High 7-18 [facility] Comment on above: Performed By: #### L 500.2500 ####[facility] [address] [place], [address] Blood urea nitrogen (BUN)/cr eatinine ratioOrdered By: Nati Hudson on 07-24-2024 Urea nitrogen/Creatinine [Mass ratio] 26.3 mg/mg High 10-20 [facility] Carbon dioxide measurementOr dered By: Nati Hudson on 07-24-2024 CO2 [Moles/Vol] 24.0 mmol/L 21.0-32.0 [facility] Chloride measurementOrdered By: Nati Hudson on 07-24-2024 Chloride [Moles/Vol] 97 mmol/L Low 98-107 [facility] Estimated glomerular filtrat ion rate (GFR) AmericanOrdered By: Nati Hudson on 07-24-2024 Estimated GFR (MDRD) Amer 89 mL/min >60 [facility] Comment on above: GFR Calc Glomerular filtration rate ( GFR) estimationOrdered By: Nati Hudson on 07-24-2024 Estimated GFR (MDRD) Non-Af Amer 74 mL/min >60 [facility] Comment on above: Non- GFR Calc GFR/1.73 sq M.predicted among non-blacks MDRD (S/P/Bld) [Vol rate/Area] 74 mL/min/{1.73_m2} >60 [facility] Comment on above: Non- GFR Calc Glucose measurementOrdered B y: Nati Hudson on 07-24-2024 Glucose [Mass/Vol] 120 mg/dL High 74-106 [facility] Comment on above: Fasting Glucose resu lt [...] on 07-24-2024 Calcium [Mass/Vol] 9.4 mg/dL 8.5-10.1 [facility] Serum or plasma creatinine m [...] Urea nitrogen [Mass/Vol] 21 mg/dL High 7-18 [facility] Sodium levelOrdered By: Luiz Hudson on 07-24-2024 Sodium [Moles/Vol] 129 mmol/L Low 136-145 [facility] MRI BRAIN WITH PERFUSIONon 0 07-16-2024 MRI [...] on the March 14, 2024 PET/CT. Normal [facility] Basic Metabolic Profile (BMP )on 06-19-2024 BUN/CRE 25.9 RATIO High 10-20 [facility] Comment on above: Performed By: #### L 501.7300, L501.7400, L501.5500, L500.2500 ####[facility] [address] [place], [address] CA,Total 9.3 mg/dL Normal 8.5-10.1 [facility] Comment on above: Performed By: #### L 501.7300, L501.7400, L501.5500, L500.2500 ####[facility] [address] [place], [address] Chloride [Moles/Vol] 98 mmol/L Normal 98-107 [facility] Comment on above: Performed By: #### L 501.7300, L501.7400, L501.5500, L500.2500 ####[facility] [address] [place], [address] CO2 [Moles/Vol] 24.0 mmol/L Normal 21.0-32.0 [facility] Comment on above: Performed By: #### L 501.7300, L501.7400, L501.5500, L500.2500 ####[facility] [address] [place], [address] Creatinine [Mass/Vol] 0.89 mg/dL Normal 0.55-1.02 [facility] Comment on above: Result Comment: The validity of the calculated GFR GFRAA in patients over70 years has not been determined. Clinical correlation isessential. Performed By: #### L 501.7300, L501.7400, L501.5500, L500.2500 ####[facility] [address] [place], [address] EST GFR - AA 79 mL/min Normal >60 [facility] Comment on above: Result Comment: Afri can Congolese GFR Calc Performed By: #### L 501.7300, L501.7400, L501.5500, L500.2500 ####[facility] [address] [place], [address] GAP 6 Normal 5-15 [facility] Comment on above: Performed By: #### L 501.7300, L501.7400, L501.5500, L500.2500 ####[facility] [address] [place], [address] GFR/1.73 sq M.predicted among non-blacks MDRD (S/P/Bld) [Vol rate/Area] 65 mL/min/{1.73_m2} Normal >60 [facility] Comment on above: Result Comment: Non- GFR Calc Performed By: #### L 501.7300, L501.7400, L501.5500, L500.2500 ####[facility] [address] [place], [address] Glucose [Mass/Vol] 121 mg/dL High 74-106 [facility] Comment on above: Result Comment: Fast ing Glucose result from 100 to 125 mg/dLsuggests IMPAIRED HOMEOSTASIS per A.D.A. criteria. Performed By: #### L 501.7300, L501.7400, L501.5500, L500.2500 ####[facility] [address] [place], [address] Potassium [Moles/Vol] 4.4 mmol/L Normal 3.5-5.1 [facility] Comment on above: Performed By: #### L 501.7300, L501.7400, L501.5500, L500.2500 ####[facility] [address] [place], [address] Sodium [Moles/Vol] 129 mmol/L Low 136-145 [facility] Comment on above: Performed By: #### L 501.7300, L501.7400, L501.5500, L500.2500 ####[facility] [address] [place], [address] Urea nitrogen [Mass/Vol] 23 mg/dL High 7-18 [facility] Comment on above: Performed By: #### L 501.7300, L501.7400, L501.5500, L500.2500 ####[facility] [address] [place], [address] Blood urea nitrogen (BUN)/cr eatinine ratioOrdered By: Nati Hudson on 06-19-2024 Urea nitrogen/Creatinine [Mass ratio] 25.9 mg/mg High 10-20 [facility] Carbon dioxide measurementOr dered By: Nati Hudson on 06-19-2024 CO2 [Moles/Vol] 24.0 mmol/L 21.0-32.0 [facility] Chloride measurementOrdered By: Nati Hudson on 06-19-2024 Chloride [Moles/Vol] 98 mmol/L 98-107 [facility] Direct serum free thyroxine (FT4) measurementOrdered By: Lolly Alejandra on 06-19-2024 Free T4 [Mass/Vol] 1.60 ng/dL High 0.76-1.46 [facility] Estimated glomerular filtrat ion rate (GFR) AmericanOrdered By: Nati Hudson on 06-19-2024 Estimated GFR (MDRD) Amer 79 mL/min >60 [facility] Comment on above: GFR Calc Free T3on 06-19-2024 Free T3 [Mass/Vol] 1.8 pg/mL Low 2.18-3.98 [facility] Comment on above: Performed By: #### L 501.9520, L506.0400, L501.43684 ####[facility] [address] [place], [address] Free J7Jxyimom By: Lolly Alejandra on 06-19-2024 Free Triiodothyronine (T3) pg/dL 1.8 pg/mL Low 2.18-3.98 [facility] Glomerular filtration rate ( GFR) estimationOrdered By: Nati Hudson on 06-19-2024 Estimated GFR (MDRD) Non-Af Amer 65 mL/min >60 [facility] Comment on above: Non- GFR Calc Glucose measurementOrdered B y: Nati Hudson on 06-19-2024 Glucose [Mass/Vol] 121 mg/dL High 74-106 [facility] Comment on above: Fasting Glucose resu lt from 100 to 125 mg/dL suggests IMPAIRED HOMEOSTASIS per A.D.A. criteria. Osmolality (U) [Osmolality]O rdered By: Nati Hudson on 06-19-2024 Urine Osmolality 657 mOsm/KG >50 [facility] Comment on above: Normal Urine Referen ce Ranges Random: 50 - 1200 mOsm/kg H20 depending on fluid intake Random: >850 mOsm/kg after 12 hour fluid restriction 24 hour: ~300 - 900 mOsm/kg H2O Osmolality, Serumon 06-19-19 25 OSMOLALITY,SER 281 mOsm/KG Normal 280-301 [facility] Comment on above: Performed By: #### L 501.7300, L501.7400, L501.5500, L500.2500 ####[facility] [address] [place], [address] Osmolality, Urineon 06-19-19 25 OSMOLALITY,UR 657 mOsm/KG Normal [facility] Comment on above: Result Comment: Norm al Urine Reference Ranges Random: 50 - 1200 mOsm/kg H20 depending on fluid intake Random: >850 mOsm/kg after 12 hour fluid restriction 24 hour: 300 - 900 mOsm/kg H2O Performed By: #### L 501.7300, L501.7400, L501.5500, L500.2500 ####[facility] [address] [place], [place], [address] Osmolality, serumOrdered By: Nati Hudson on 06-19-2024 Serum Osmolality 281 mOsm/KG 280-301 [facility] Potassium measurementOrdered By: Nati Hudson on 06-19-2024 Potassium [Moles/Vol] 4.4 mmol/L 3.5-5.1 [facility] Serum anion gap measurementO rdered By: Nati Hudson on 06-19-2024 Anion gap [Moles/Vol] 6 mmol/L 5-15 [facility] Serum or plasma calcium ena urement (mass/volume)Ordered By: aNti Hudson on 06-19-2024 Calcium [Mass/Vol] 9.3 mg/dL 8.5-10.1 [facility] Serum or plasma creatinine m [...] Urea nitrogen [Mass/Vol] 23 mg/dL High 7-18 [facility] Sodium levelOrdered By: Luiz Hudson on 06-19-2024 Sodium [Moles/Vol] 129 mmol/L Low 136-145 [facility] Sodium urOrdered By: Ana Cristina Hudson on 06-19-2024 Sodium (U) [Moles/Vol] 75 mmol/L Not Establ. [facility] T4 Free Directon 06-19-2024 T4 FREE DIRECT 1.60 ng/dL High 0.76-1.46 [facility] Comment on above: Performed By: #### L 501.9520, L506.0400, L501.44248 ####[facility] [address] [place], [address] TSH QnOrdered By: Lolly Bernabe on 06-19-2024 Thyroid Stimulating Hormone (TSH) 1.730 uIU/mL 0.358-3.740 [facility] Thyroid Stim Hormone (TSH)on 06-19-2024 TSH 1.730 uIU/mL Normal 0.358-3.740 [facility] Comment on above: Performed By: #### L 501.9520, L506.0400, L501.94292 ####[facility] [address] [place], [address] Urine Sodiumon 06-19-2024 Sodium (U) [Moles/Vol] 75 mmol/L Normal Not Establ. [facility] Comment on above: Performed By: #### L 501.7300, L501.7400, L501.5500, L500.2500 ####[facility] [address] [place], [address] AST(SGOT)on 04-17-2024 AST [Catalytic activity/Vol] 24 U/L Normal 15-37 [facility] Comment on above: Order Comment: Order Date: 03/20/24Order Info: 666-06 - BMPOrder Info: - LIPIDOrder Date: 11/18/23Order Info: 1920-01 - ASTOrder Info: 1741-11 - ALT Performed By: #### L 500.4100, L501.4100, L501.4405 ####[facility] [address] [place], [address] Alanine Aminotransferas (SGP T)on 04-17-2024 ALT [Catalytic activity/Vol] 46 U/L Normal 13-56 [facility] Comment on above: Order Comment: Order Date: 03/20/24Order Info: 666-06 - BMPOrder Info: - LIPIDOrder Date: 11/18/23Order Info: 1920-01 - ASTOrder Info: 1741-11 - ALT Performed By: #### L 500.4100, L501.4100, L501.4405 ####[facility] [address] [place], [place], [address] Basic Metabolic Profile (BMP )on 04-17-2024 BUN/CRE 17.6 RATIO Normal 10-20 [facility] Comment on above: Order Comment: Order Date: 03/20/24Order Info: 666-06 - BMPOrder Info: - LIPIDOrder Date: 11/18/23Order Info: 1920-01 - ASTOrder Info: 1741-11 - ALT Performed By: #### L 500.2500 ####[facility] [address] [place], [place], [address] [place],Total 9.1 mg/dL Normal 8.5-10.1 [facility] Comment on above: Order Comment: Order Date: 03/20/24Order Info: 666-06 - BMPOrder Info: - LIPIDOrder Date: 11/18/23Order Info: 1920-01 - ASTOrder Info: 1741-11 - ALT Performed By: #### L 500.2500 ####[facility] [address] [place], [address] Chloride [Moles/Vol] 99 mmol/L Normal 98-107 [facility] Comment on above: Order Comment: Order Date: 03/20/24Order Info: 666-06 - BMPOrder Info: - LIPIDOrder Date: 11/18/23Order Info: 1920-01 - ASTOrder Info: 1741-11 - ALT Performed By: #### L 500.2500 ####[facility] [address] [place], [address] CO2 [Moles/Vol] 24.0 mmol/L Normal 21.0-32.0 [facility] Comment on above: Order Comment: Order Date: 03/20/24Order Info: 666-06 - BMPOrder Info: - LIPIDOrder Date: 11/18/23Order Info: 1920-01 - ASTOrder Info: 1741-11 - ALT Performed By: #### L 500.2500 ####[facility] [address] [place], [place], [address] Creatinine [Mass/Vol] 0.91 mg/dL Normal 0.55-1.02 [facility] Comment on above: Order Comment: Order Date: 03/20/24Order Info: 666-06 - BMPOrder Info: - LIPIDOrder Date: 11/18/23Order Info: 1920-01 - ASTOrder Info: 1741-11 - ALT Result Comment: The validity of the calculated GFR GFRAA in patients over70 years has not been determined. Clinical correlation isessential. Performed By: #### L 500.2500 ####[facility] [address] [place], [address] EST GFR - AA 77 mL/min Normal >60 [facility] Comment on above: Order Comment: Order Date: 03/20/24Order Info: 666-06 - BMPOrder Info: - LIPIDOrder Date: 11/18/23Order Info: 1920-01 - ASTOrder Info: 1741-11 - ALT Result Comment: Afri can Congolese GFR Calc Performed By: #### L 500.2500 ####[facility] [address] [place], [address] GAP 7 Normal 5-15 [facility] Comment on above: Order Comment: Order Date: 03/20/24Order Info: 666-06 - BMPOrder Info: - LIPIDOrder Date: 11/18/23Order Info: 1920-01 - ASTOrder Info: 1741-11 - ALT Performed By: #### L 500.2500 ####[facility] [address] [place], [address] GFR/1.73 sq M.predicted among non-blacks MDRD (S/P/Bld) [Vol rate/Area] 63 mL/min/{1.73_m2} Normal >60 [facility] Comment on above: Order Comment: Order Date: 03/20/24Order Info: 666-06 - BMPOrder Info: - LIPIDOrder Date: 11/18/23Order Info: 1920-01 - ASTOrder Info: 1741-11 - ALT Result Comment: Non- GFR Calc Performed By: #### L 500.2500 ####[facility] [address] [place], [address] Glucose [Mass/Vol] 121 mg/dL High 74-106 [facility] Comment on above: Order Comment: Order Date: 03/20/24Order Info: 666-06 - BMPOrder Info: - LIPIDOrder Date: 11/18/23Order Info: 1920-01 - ASTOrder Info: 1741-11 - ALT Result Comment: Fast ing Glucose result from 100 to 125 mg/dLsuggests IMPAIRED HOMEOSTASIS per A.D.A. criteria. Performed By: #### L 500.2500 ####[facility] [address] [place], [address] Potassium [Moles/Vol] 4.6 mmol/L Normal 3.5-5.1 [facility] Comment on above: Order Comment: Order Date: 03/20/24Order Info: 666-06 - BMPOrder Info: - LIPIDOrder Date: 11/18/23Order Info: 1920-01 - ASTOrder Info: 1741-11 - ALT Performed By: #### L 500.2500 ####[facility] [address] [place], [address] Sodium [Moles/Vol] 130 mmol/L Low 136-145 [facility] Comment on above: Order Comment: Order Date: 03/20/24Order Info: 666-06 - BMPOrder Info: - LIPIDOrder Date: 11/18/23Order Info: 1920-01 - ASTOrder Info: 1741-11 - ALT Performed By: #### L 500.2500 ####[facility] [address] [place], [address] Urea nitrogen [Mass/Vol] 16 mg/dL Normal 7-18 [facility] Comment on above: Order Comment: Order Date: 03/20/24Order Info: 666-06 - BMPOrder Info: - LIPIDOrder Date: 11/18/23Order Info: 1920-01 - ASTOrder Info: 1741-11 - ALT Performed By: #### L 500.2500 ####[facility] [address] [place], [address] Lipid Profileon 04-17-2024 Cholesterol [Mass/Vol] 160 mg/dL Normal 200 [facility] Comment on above: Order Comment: Order Date: 03/20/24Order Info: 666-06 - BMPOrder Info: - LIPIDOrder Date: 11/18/23Order Info: 1920-01 - ASTOrder Info: 1741-11 - ALT Result Comment: <200 mg/dL Desirable 200-240 mg/dL Borderline >240 mg/dL High Risk Performed By: #### L 500.4100, L501.4100, L501.4405 ####[facility] [address] [place], [address] Cholesterol in HDL [Mass/Vol] 73 mg/dL Normal [facility] Comment on above: Order Comment: Order Date: 03/20/24Order Info: 666-06 - BMPOrder Info: - LIPIDOrder Date: 11/18/23Order Info: 1920-01 - ASTOrder Info: 1741-11 - ALT Result Comment: The drugs N-Acetylcysteine and Metamizole may falselydepress this assay. Reference Range HDL <40 mg/dL Low HDL Cholesterol HDL >or= 60 mg/dL High HDL Cholesterol Performed By: #### L 500.4100, L501.4100, L501.4405 ####[facility] [address] [place], [address] Cholesterol in LDL [Mass/Vol] 71 mg/dL Normal 0-130 [facility] Comment on above: Order Comment: Order Date: 03/20/24Order Info: 666-06 - BMPOrder Info: - LIPIDOrder Date: 11/18/23Order Info: 1920-01 - ASTOrder Info: 1741-11 - ALT Performed By: #### L 500.4100, L501.4100, L501.4405 ####[facility] [address] [place], [address] Cholesterol in VLDL [Mass/Vol] 16 mg/dL Normal 5-40 [facility] Comment on above: Order Comment: Order Date: 03/20/24Order Info: 666-06 - BMPOrder Info: - LIPIDOrder Date: 11/18/23Order Info: 1920-01 - ASTOrder Info: 1741-11 - ALT Performed By: #### L 500.4100, L501.4100, L501.4405 ####[facility] [address] [place], [address] Triglyceride [Mass/Vol] 78 mg/dL Normal [facility] Comment on above: Order Comment: Order [...] Performed By: #### L 500.4100, L501.4100, L501.4405 ####[facility] [address] [place], [address] Protein+Creatinine Ratio,Uri neon 04-17-2024 PROT:CRE RATIO 301 mg/g CRE High 0-200 [facility] Comment on above: Performed By: #### L 501.0900 ####[facility] [address] [place], [address] Protein (U) [Mass/Vol] 20.1 mg/dL High <11.9 [facility] Comment on above: Performed By: #### L 501.0900 ####[facility] [address] [place], [address] UR CREAT 66.70 mg/dL Normal NO RANGE EST. [facility] Comment on above: Performed By: #### L 501.0900 ####[facility] [address] [place], [address] MRI BRAIN WITH PERFUSIONon 1 MRI BRAIN [...] have reviewed and approved this report. Normal [facility] PT Skull base to mid-thighon 03-14-2024 [...] the patient was positioned on the [employer] mCT TOF< PET/CT-64, [employer] imaging unit.. A [...] the patient was positioned on the [employer]graph mCT TOF< PET/CT-64, [employer] imaging unit.. A [...] disease cannot be entirely excluded. [facility] Radiology Study observation (narrative) [facility] PT Skull base to mid-thighOr dered By: Anthony Ricci on 03-14-2024 [facility] Work Phone: Basophil percentageOrdered B y: Lolly Alejandra on 07-19-2023 Bilirubin [Mass/Vol] 1.00 mg/dL 0.20-1.00 [facility] Comment on above: For patients on eltr ombopag therapy, use of Dimension [place] TBIL is not recommended. Protein [Mass/Vol] 7.2 g/dL 6.4-8.2 [facility] Direct bilirubinOrdered By: Lolly Alejandra on 07-19-2023 Bilirubin.direct [Mass/Vol] 0.32 mg/dL 0.00-0.30 [facility] - Chemistry and C hemistry - challengeOrdered By: Lolly Alejandra on 07-19-2023 ALP [Catalytic activity/Vol] 84 U/L 45-117 [facility] ALT [Catalytic activity/Vol] 29 U/L 13-56 [facility] Globulin (S) [Mass/Vol] 3.0 g/dL 2.2-4.2 [facility] No Panel InformationOrdered By: Lolly Alejandra on 07-19-2023 Free Triiodothyronine (T3) pg/dL 2.1 pg/mL 2.18-3.98 [facility] Serum or plasma thyroid stim ulating hormone (TSH) measurement (units/volume)Ordered By: Lolly Alejandra on 07-19-2023 TSH Qn 2.69 uIU/mL 0.358-3.74 [facility] Thin prep Papanicolaou smear with manual screeningOrdered By: Lolly Alejandra on 07-19-2023 Thin prep Papanicolaou smear with manual screening 4.2 g/dL 3.2-5.0 [facility] Thin prep Papanicolaou smear with manual screening 18 U/L 15-37 [facility] Thin prep Papanicolaou smear with manual screening 1.53 ng/dL 0.76-1.46 [facility] RAD ONC ARIA FRACTION SUMMAR 02-16-2023 Course Elapsed Days 15 [facility] Course First Treatment Date 02/01/2023 12:46 PM [facility] Course ID C1 Meningioma [facility] Course Last Treatment Date 02/16/2023 9:15 AM [facility] Energy 6X [facility] Fraction Number 11 [facility] Plan Dose Delivered to Date 2200 cGy [facility] Plan Fractions Treated to Date 11 [facility] Plan ID L_Fronto_Temp [facility] Plan Prescribed Dose Per Fraction 200 cGy [facility] Plan Primary Reference Point 1.A L_FrontoTemp [facility] Plan Total Fractions Prescribed 30 [facility] Plan Total Prescribed Dose 6000 cGy [facility] Reference Point ID 1.A L_FrontoTemp [facility] Treatment Dates 30 [facility] Radiology Study observation (narrative) [facility] RAD ONC ARIA FRACTION SUMMAR 02-08-2023 Course Elapsed Days 7 [facility] Course First Treatment Date 02/01/2023 12:46 PM [facility] Course ID C1 Meningioma [facility] Course Last Treatment Date 02/08/2023 10:18 AM [facility] [employer] 6X [facility] Fraction Number 5 [facility] Plan Dose Delivered to Date 1000 cGy [facility] Plan Fractions Treated to Date 5 [facility] Plan ID L_Fronto_Temp [facility] Plan Prescribed Dose Per Fraction 200 cGy [facility] Plan Primary Reference Point 1.A L_FrontoTemp [facility] Plan Total Fractions Prescribed 30 [facility] Plan Total Prescribed Dose 6000 cGy [facility] Reference Point ID 1.A L_FrontoTemp [facility] Treatment Dates 30 [facility] Radiology Study observation (narrative) [facility] Absolute lymphocyte countOrd ered By: Monika Theo on 01-18-2023 Lymphocytes Auto (Unsp spec) [#/Vol] 0.91 10*3/uL 0.83-4.51 [facility] Basophil percentageOrdered B y: Monika Scruggsvilla on 01-18-2023 Basophils/100 WBC (Bld) 0.3 % 0-1 [facility] Chloride [Moles/Vol] 98 mmol/L 98-107 [facility] Eosinophils/100 WBC (Bld) 1.5 % 0-5 [facility] Glucose [Mass/Vol] 113 mg/dL 74-106 [facility] Comment on above: Fasting Glucose resu lt from 100 to 125 mg/dL suggests IMPAIRED HOMEOSTASIS per A.D.A. criteria. Neutrophils (Bld) [#/Vol] 6.0 10*3/uL 2.0-7.7 [facility] Neutrophils/100 WBC (Bld) 76.8 % 47-70 [facility] Potassium [Moles/Vol] 4.4 mmol/L 3.5-5.1 [facility] Sodium [Moles/Vol] 132 mmol/L 136-145 [facility] WBC (Bld) [#/Vol] 7.8 10*3/uL 4.4-11.0 [facility] Blood erythrocytes count (nu mber/volume)Ordered By: Monika Venegas on 01-18-2023 RBC (Bld) [#/Vol] 3.40 10*6/uL 4.2-5.4 [facility] Blood hemoglobin measurement (mass/volume)Ordered By: Monika Venegas on 01-18-2023 Hemoglobin (Bld) [Mass/Vol] 10.4 g/dL 12.0-15.0 [facility] Blood lymphocytes/100 leukoc ytesOrdered By: Monika Venegas on 01-18-2023 Lymphocytes/100 WBC (Bld) 11.7 % 19-41 [facility] Blood monocytes/100 leukocyt esOrdered By: Monika Venegas on 01-18-2023 Monocytes/100 WBC (Bld) 9.1 % 0-10 [facility] Blood platelet mean volumeOr dered By: Monika Venegas on 01-18-2023 Platelet mean volume (Bld) [Entitic vol] 10.5 fL 6.2-12.0 [facility] Determination of erythrocyte mean corpuscular volume (MCV)Ordered By: Monika Venegas on 01-18-2023 MCV (RBC) [Entitic vol] 90.6 fL 81-99 [facility] Hematocrit Auto (Bld) [Volum e fraction]Ordered By: Monika Venegas on 01-18-2023 Hematocrit (Bld) [Volume fraction] 30.8 % 37-47 [facility] Laboratory - Chemistry and C hemistry - challengeOrdered By: Monika Venegas on 01-18-2023 CO2 [Moles/Vol] 30.0 mmol/L 21.0-32.0 [facility] Urea nitrogen/Creatinine [Mass ratio] 22.3 mg/mg 10-20 [facility] Laboratory - Hematology and Cell countsOrdered By: Monika Venegas on 01-18-2023 Erythrocyte distribution width (RBC) [Entitic vol] 49.6 fL 35.1-43.9 [facility] Erythrocyte distribution width (RBC) [Ratio] 15.1 % 11.6-14.6 [facility] Immature granulocytes/100 WBC (Bld) 0.600 % 0.0-0.9 [facility] Comment on above: IG% - Immature Granu locytes (promyelocytes, myelocytes and metamyelocytes) > 1% indicates that a LEFT SHIFT is Present. MCH (RBC) [Entitic mass] 30.6 pg 27.0-32.0 [facility] Nucleated RBC/100 WBC (Bld) [Ratio] 0 % 0-5 [facility] MCHC Auto (RBC) [Mass/Vol]Or dered By: Monika Venegas on 01-18-2023 MCHC (RBC) [Mass/Vol] 33.8 g/dL 32-36 [facility] No Panel InformationOrdered By: Monika Venegas on 01-18-2023 Estimated GFR (MDRD) Amer 101 mL/min >60 [facility] Comment on above: GFR Calc Estimated GFR (MDRD) Non-Af Amer 83 mL/min >60 [facility] Comment on above: Non- GFR Calc Platelets bldOrdered By: Monika Venegas on 01-18-2023 Platelets (Bld) [#/Vol] 245 10*3/uL 150-450 [facility] Serum or plasma calcium ena urement (mass/volume)Ordered By: Monika Venegas on 01-18-2023 Calcium [Mass/Vol] 9.4 mg/dL 8.5-10.1 [facility] Serum or plasma creatinine m [...] 01-18-2023 Urea nitrogen [Mass/Vol] 16 mg/dL 7-18 [facility] Thin prep Papanicolaou smear with manual screeningOrdered By: Monika Venegas on 01-18-2023 Thin prep Papanicolaou smear with manual screening 4 5-15 [facility] Basophil percentageOrdered B y: Jo-Ann Arias on 12-27-2022 Chloride [Moles/Vol] 106 mmol/L 98-107 [facility] Glucose [Mass/Vol] 123 mg/dL 74-106 [facility] Comment on above: Fasting Glucose resu lt from 100 to 125 mg/dL suggests IMPAIRED HOMEOSTASIS per A.D.A. criteria. Potassium [Moles/Vol] 4.2 mmol/L 3.5-5.1 [facility] Sodium [Moles/Vol] 137 mmol/L 136-145 [facility] Laboratory - Chemistry and C hemistry - challengeOrdered By: Jo-Ann Arias on 12-27-2022 CO2 [Moles/Vol] 27.0 mmol/L 21.0-32.0 [facility] Magnesium [Mass/Vol] 1.7 mg/dL 1.6-2.6 [facility] Urea nitrogen/Creatinine [Mass ratio] 26.9 mg/mg 10-20 [facility] No Panel InformationOrdered By: Jo-Ann Arias on 12-27-2022 Estimated Creatinine Clearance Calc 39.75 ml/min [facility] Estimated GFR (MDRD) Amer 146 mL/min >60 [facility] Comment on above: GFR Calc Estimated GFR (MDRD) Non-Af Amer 121 mL/min >60 [facility] Comment on above: Non- GFR Calc Serum or plasma calcium ena urement (mass/volume)Ordered By: Jo-Ann Arias on 12-27-2022 Calcium [Mass/Vol] 8.8 mg/dL 8.5-10.1 [facility] Serum or plasma creatinine m [...] 12-27-2022 Urea nitrogen [Mass/Vol] 14 mg/dL 7-18 [facility] Thin prep Papanicolaou smear with manual screeningOrdered By: Jo-Ann Arias on 12-27-2022 Thin prep Papanicolaou smear with manual screening 4 5-15 [facility] Absolute lymphocyte countOrd ered By: Laura Jacobo on 12-24-2022 Lymphocytes Auto (Unsp spec) [#/Vol] 0.91 10*3/uL 0.83-4.51 [facility] Basophil percentageOrdered B y: Laura Jacobo on 12-24-2022 Basophils/100 WBC (Bld) 0.4 % 0-1 [facility] Bilirubin [Mass/Vol] 0.70 mg/dL 0.20-1.00 [facility] Comment on above: For patients on eltr ombopag therapy, use of Dimension [place] TBIL is not recommended. Chloride [Moles/Vol] 109 mmol/L 98-107 [facility] Eosinophils/100 WBC (Bld) 0.7 % 0-5 [facility] Glucose [Mass/Vol] 159 mg/dL 74-106 [facility] Comment on above: Fasting Glucose resu lt greater than or equal to 126 mg/dL suggests DIABETES MELLITUS per A.D.A. criteria. Neutrophils (Bld) [#/Vol] 3.9 10*3/uL 2.0-7.7 [facility] Neutrophils/100 WBC (Bld) 67.6 % 47-70 [facility] Potassium [Moles/Vol] 4.2 mmol/L 3.5-5.1 [facility] Protein [Mass/Vol] 5.6 g/dL 6.4-8.2 [facility] Sodium [Moles/Vol] 138 mmol/L 136-145 [facility] WBC (Bld) [#/Vol] 5.7 10*3/uL 4.4-11.0 [facility] Blood erythrocytes count (nu mber/volume)Ordered By: Laura Jacobo on 12-24-2022 RBC (Bld) [#/Vol] 3.29 10*6/uL 4.2-5.4 [facility] Blood hemoglobin measurement (mass/volume)Ordered By: Laura Jacobo on 12-24-2022 Hemoglobin (Bld) [Mass/Vol] 9.7 g/dL 12.0-15.0 [facility] Blood lymphocytes/100 leukoc ytesOrdered By: Laura Jacobo on 12-24-2022 Lymphocytes/100 WBC (Bld) 15.9 % 19-41 [facility] Blood monocytes/100 leukocyt esOrdered By: Laura Jacobo on 12-24-2022 Monocytes/100 WBC (Bld) 13.1 % 0-10 [facility] Blood platelet mean volumeOr dered By: Laura Jacobo on 12-24-2022 Platelet mean volume (Bld) [Entitic vol] 9.9 fL 6.2-12.0 [facility] Determination of erythrocyte mean corpuscular volume (MCV)Ordered By: Laura Jacobo on 12-24-2022 MCV (RBC) [Entitic vol] 91.5 fL 81-99 [facility] Hematocrit Auto (Bld) [Volum e fraction]Ordered [facility]: [facility] 12-24-2022 Hematocrit (Bld) [Volume fraction] 30.1 % 37-47 [facility] Laboratory - Chemistry and C hemistry - challengeOrdered By: [facility] on 12-24-2022 ALP [Catalytic activity/Vol] 121 U/L 45-117 [facility] ALT [Catalytic activity/Vol] 36 U/L 13-56 [facility] CO2 [Moles/Vol] 23.0 mmol/L 21.0-32.0 [facility] Globulin (S) [Mass/Vol] 2.7 g/dL 2.2-4.2 [facility] Urea nitrogen/Creatinine [Mass ratio] 29.0 mg/mg 10-20 [facility] - Hematology and Cell countsOrdered By: Laura Jacobo on 12-24-2022 Erythrocyte distribution width (RBC) [Entitic vol] 50.5 fL 35.1-43.9 [facility] Erythrocyte distribution width (RBC) [Ratio] 15.2 % 11.6-14.6 [facility] Immature granulocytes/100 WBC (Bld) 2.300 % 0.0-0.9 [facility] Comment on above: IG% - Immature Granu locytes (promyelocytes, myelocytes and metamyelocytes) > 1% indicates that a LEFT SHIFT is Present. MCH (RBC) [Entitic mass] 29.5 pg 27.0-32.0 [facility] Nucleated RBC/100 WBC (Bld) [Ratio] 0 % 0-5 [facility] [Mass/Vol]Or dered By: Laura Jacobo on 12-24-2022 MCHC (RBC) [Mass/Vol] 32.2 g/dL 32-36 [facility] No Panel InformationOrdered By: Laura Jacobo on 12-24-2022 Estimated Creatinine Clearance Calc 39.97 ml/min [facility] Estimated GFR (MDRD) Amer 127 mL/min >60 [facility] Comment on above: GFR Calc Estimated GFR (MDRD) Non-Af Amer 105 mL/min >60 [facility] Comment on above: Non- GFR Calc Platelets bldOrdered By: Isabel Jacobo on 12-24-2022 Platelets (Bld) [#/Vol] 246 10*3/uL 150-450 [facility] Serum or plasma albumin ena urement (mass/volume)Ordered By: Laura Jacobo on 12-24-2022 Albumin [Mass/Vol] 2.9 g/dL 3.2-5.0 [facility] Serum or plasma albumin/glob ulin mass ratioOrdered By: Laura Jacobo on 12-24-2022 Albumin/Globulin [Mass ratio] 1.1 {ratio} 0.9-2.4 [facility] Serum or plasma calcium ena urement (mass/volume)Ordered By: Laura Jacobo on 12-24-2022 Calcium [Mass/Vol] 8.8 mg/dL 8.5-10.1 [facility] Serum or plasma creatinine m [...] 12-24-2022 Urea nitrogen [Mass/Vol] 17 mg/dL 7-18 [facility] Thin prep Papanicolaou smear with manual screeningOrdered By: Laura Jacobo on 12-24-2022 Thin prep Papanicolaou smear with manual screening 14 U/L 15-37 [facility] Thin prep Papanicolaou smear with manual screening 6 5-15 [facility] No Panel InformationOrdered By: Laura Jacobo on 12-23-2022 Thyroid Stimulating Hormone (TSH) 2.34 uIU/mL 0.358-3.74 [facility] Basophil percentageOrdered B y: Jo-Ann Hugo on 12-20-2022 Sodium [Moles/Vol] 137 mmol/L 136-145 [facility] Basophil percentageOrdered B y: Jo-Ann Arias on 12-16-2022 Chloride [Moles/Vol] 103 mmol/L 98-107 [facility] Glucose [Mass/Vol] 127 mg/dL 74-106 [facility] Comment on above: Fasting Glucose resu lt greater than or equal to 126 mg/dL suggests DIABETES MELLITUS per A.D.A. criteria. Potassium [Moles/Vol] 4.2 mmol/L 3.5-5.1 [facility] Laboratory - Chemistry and C hemistry - challengeOrdered By: Jo-Ann Arias on 12-16-2022 CO2 [Moles/Vol] 27.0 mmol/L 21.0-32.0 [facility] Magnesium [Mass/Vol] 2.1 mg/dL 1.6-2.6 [facility] Urea nitrogen/Creatinine [Mass ratio] 13.3 mg/mg 10-20 [facility] No Panel InformationOrdered By: Jo-Ann Arias on 12-16-2022 Estimated Creatinine Clearance Calc 42.34 ml/min [facility] Estimated GFR (MDRD) Amer 144 mL/min >60 [facility] Comment on above: GFR Calc Estimated GFR (MDRD) Non-Af Amer 119 mL/min >60 [facility] Comment on above: Non- GFR Calc Serum or plasma calcium ena urement (mass/volume)Ordered By: Jo-Ann Arias on 12-16-2022 Calcium [Mass/Vol] 8.8 mg/dL 8.5-10.1 [facility] Serum or plasma creatinine m [...] 12-16-2022 Urea nitrogen [Mass/Vol] 7 mg/dL 7-18 [facility] Thin prep Papanicolaou smear with manual screeningOrdered By: Jo-Ann Arias on 12-16-2022 Thin prep Papanicolaou smear with manual screening 4 5-15 [facility] Blood hemoglobin measurement (mass/volume)Ordered By: Jo-Ann Arias on 12-13-2022 Hemoglobin (Bld) [Mass/Vol] 9.8 g/dL 12.0-15.0 [facility] Hematocrit Auto (Bld) [Volum e fraction]Ordered By: Jo-Ann Arias on 12-13-2022 Hematocrit (Bld) [Volume fraction] 29.1 % 37-47 [facility] Glucose Glucometer (BldC) [M ass/Vol]Ordered By: Jo-Ann Arias on 12-10-2022 Glucose [Mass/Vol] 120 mg/dL 74-106 [facility] Comment on above: MANAGEMENT OF PATIEN T CARE PER NURSING PROTOCOL Basophil percentageOrdered B y: Jo-Ann Arias on 12-07-2022 Basophil percentage 3.2 mg/dL 2.5-4.9 [facility] Bilirubin [Mass/Vol] 1.00 mg/dL 0.20-1.00 [facility] Comment on above: For patients on eltr ombopag therapy, use of Dimension [place] TBIL is not recommended. Protein [Mass/Vol] 4.8 g/dL 6.4-8.2 [facility] WBC (Bld) [#/Vol] 10.0 10*3/uL 4.4-11.0 [facility] Blood erythrocytes count (nu mber/volume)Ordered By: Jo-Ann Arias on 12-07-2022 RBC (Bld) [#/Vol] 3.34 10*6/uL 4.2-5.4 [facility] Blood platelet mean volumeOr dered By: Jo-Ann Arias on 12-07-2022 Platelet mean volume (Bld) [Entitic vol] 9.2 fL 6.2-12.0 [facility] Clostridium difficile detect ion by polymerase chain reactionOrdered By: Jo-Ann Arias on 12-07-2022 C. difficile DNA SHAHBAZ+probe Ql (Unsp spec) [facility] Determination of erythrocyte mean corpuscular volume (MCV)Ordered By: Jo-Ann Arias on 12-07-2022 MCV (RBC) [Entitic vol] 88.9 fL 81-99 [facility] - Chemistry and C hemistry - challengeOrdered By: Jo-Ann Arias on 12-07-2022 ALP [Catalytic activity/Vol] 74 U/L 45-117 [facility] ALT [Catalytic activity/Vol] 23 U/L 13-56 [facility] Globulin (S) [Mass/Vol] 3.0 g/dL 2.2-4.2 [facility] - Hematology and Cell countsOrdered By: Jo-Ann Arias on 12-07-2022 Erythrocyte distribution width (RBC) [Entitic vol] 46.3 fL 35.1-43.9 [facility] Erythrocyte distribution width (RBC) [Ratio] 14.4 % 11.6-14.6 [facility] MCH (RBC) [Entitic mass] 30.2 pg 27.0-32.0 [facility] MCHC Auto (RBC) [Mass/Vol]Or dered By: Jo-Ann Arias on 12-07-2022 MCHC (RBC) [Mass/Vol] 34.0 g/dL 32-36 [facility] Platelets bldOrdered By: Alyssa Arias on 12-07-2022 Platelets (Bld) [#/Vol] 229 10*3/uL 150-450 [facility] Serum or plasma albumin ena urement (mass/volume)Ordered By: Jo-Ann Arias on 12-07-2022 Albumin [Mass/Vol] 1.8 g/dL 3.2-5.0 [facility] Serum or plasma albumin/glob ulin mass ratioOrdered By: Jo-Ann Arias on 12-07-2022 Albumin/Globulin [Mass ratio] 0.6 {ratio} 0.9-2.4 [facility] Stool Clostridium difficile detectionOrdered By: Jo-Ann Arias on 12-07-2022 C. difficile Ql (Stl) [facility] Thin prep Papanicolaou smear with manual screeningOrdered By: Jo-Ann Arias on 12-07-2022 Thin prep Papanicolaou smear with manual screening 16 U/L 15-37 [facility] Absolute lymphocyte counton 11-09-2022 Lymphocytes Auto (Unsp spec) [#/Vol] 1.41 10*3/uL 0.83-4.51 [facility] Basophil percentageon 2022 Basophils/100 WBC (Bld) 0.4 % 0-1 [facility] Chloride [Moles/Vol] 100 mmol/L 98-107 [facility] Eosinophils/100 WBC (Bld) 1.0 % 0-5 [facility] Glucose [Mass/Vol] 108 mg/dL 74-106 [facility] Comment on above: Fasting Glucose resu lt from 100 to 125 mg/dL suggests IMPAIRED HOMEOSTASIS per A.D.A. criteria. Neutrophils (Bld) [#/Vol] 6.1 10*3/uL 2.0-7.7 [facility] Neutrophils/100 WBC (Bld) 72.5 % 47-70 [facility] Potassium [Moles/Vol] 3.8 mmol/L 3.5-5.1 [facility] Sodium [Moles/Vol] 133 mmol/L 136-145 [facility] WBC (Bld) [#/Vol] 8.3 10*3/uL 4.4-11.0 [facility] Blood erythrocytes count (nu mber/volume)on 11-09-2022 RBC (Bld) [#/Vol] 3.93 10*6/uL 4.2-5.4 [facility] Blood hemoglobin measurement (mass/volume)on 11-09-2022 Hemoglobin (Bld) [Mass/Vol] 12.2 g/dL 12.0-15.0 [facility] Blood lymphocytes/100 leukoc yteson 11-09-2022 Lymphocytes/100 WBC (Bld) 16.9 % 19-41 [facility] Blood monocytes/100 leukocyt eson 11-09-2022 Monocytes/100 WBC (Bld) 8.8 % 0-10 [facility] Blood platelet mean volumeon 11-09-2022 Platelet mean volume (Bld) [Entitic vol] 9.8 fL 6.2-12.0 [facility] Determination of erythrocyte mean corpuscular volume (MCV)on 11-09-2022 MCV (RBC) [Entitic vol] 88.3 fL 81-99 [facility] Hematocrit Auto (Bld) [Volum e fraction]on 11-09-2022 Hematocrit (Bld) [Volume fraction] 34.7 % 37-47 [facility] INR in Blood by Coagulation assayon 11-09-2022 INR Coag (Bld) [Relative time] 0.9 {INR} [facility] Laboratory - Chemistry and C hemistry - challengeon 11-09-2022 CO2 [Moles/Vol] 27.0 mmol/L 21.0-32.0 [facility] Urea nitrogen/Creatinine [Mass ratio] 21.3 mg/mg 10-20 [facility] Laboratory - Coagulationon 0 11-09-2022 aPTT Coag (Bld) [Time] 29.1 s 24.1-36.2 [facility] PT Coag (PPP) [Time] 12.5 s 11.7-14.9 [facility] Laboratory - Hematology and Cell countson 11-09-2022 Erythrocyte distribution width (RBC) [Entitic vol] 42.7 fL 35.1-43.9 [facility] Erythrocyte distribution width (RBC) [Ratio] 13.2 % 11.6-14.6 [facility] Immature granulocytes/100 WBC (Bld) 0.400 % 0.0-0.9 [facility] Comment on above: IG% - Immature Granu locytes (promyelocytes, myelocytes and metamyelocytes) > 1% indicates that a LEFT SHIFT is Present. MCH (RBC) [Entitic mass] 31.0 pg 27.0-32.0 [facility] Nucleated RBC/100 WBC (Bld) [Ratio] 0 % 0-5 [facility] MCHC Auto (RBC) [Mass/Vol]on 11-09-2022 MCHC (RBC) [Mass/Vol] 35.2 g/dL 32-36 [facility] No Panel Informationon 11-09 Estimated GFR (MDRD) Amer 103 mL/min >60 [facility] Comment on above: GFR Calc Estimated GFR (MDRD) Non-Af Amer 85 mL/min >60 [facility] Comment on above: Non- GFR Calc Platelets bldon 11-09-2022 Platelets (Bld) [#/Vol] 272 10*3/uL 150-450 [facility] Serum or plasma calcium ena urement (mass/volume)on 11-09-2022 Calcium [Mass/Vol] 9.3 mg/dL 8.5-10.1 [facility] Serum or plasma creatinine m easurement (mass/volume)on 11-09-2022 Creatinine [Mass/Vol] 0.70 mg/dL 0.55-1.02 [facility] Comment on above: The validity of the calculated GFR & GFRAA in patients over 70 years has not been determined. Clinical correlation is essential. Serum or plasma urea nitroge n measurement (mass/volume)on 11-09-2022 Urea nitrogen [Mass/Vol] 15 mg/dL 7-18 [facility] Thin prep Papanicolaou smear with manual screeningon 11-09-2022 Thin prep Papanicolaou smear with manual screening 6 5-15 [facility] EXTRA MICROon 10-09-2022 [facility] SCREEN: MRSA/MSSAOrdered By: Patrick Galicia on 10-09-2022 Interpretation and review of laboratory results Normal [facility] Methicillin Resistant S. Aureus By Pcr Negative Negative [facility] Staphylococcus Aureus By Pcr Negative Negative [facility] This test was perfor med using a [...] by the Clinical Microbiology Laboratory at [facility]. It has not been cleared or approved by the FDA.The laboratory is regulated under CLIA as qualified to perform high-complexity testing. This test is used for clinical purposes. It should not be regarded as investigational or for research. [facility] CBC AND ELECTRONIC DIFFon Basophils (Bld) [#/Vol] 0.05 10*3/uL 0.00 - 0.15 K/uL [facility] Basophils/100 WBC (Bld) 0.5 % [facility] Differential cell count method Nom (Bld) Electronic Differential O [facility] Eosinophils (Bld) [#/Vol] 0.08 10*3/uL 0.00 - 0.42 K/uL [facility] Eosinophils/100 WBC (Bld) 0.8 % [facility] Erythrocyte distribution width (RBC) [Ratio] 12.9 % 10.8 - 14.9 % [facility] Hematocrit (Bld) [Volume fraction] 38.0 % 34.9 - 44.3 % [facility] Hemoglobin (Bld) [Mass/Vol] 13.0 g/dL 11.4 - 15.2 g/dL [facility] Immature granulocytes (Bld) [#/Vol] 0.05 10*3/uL NINF - 0.08 K/uL [facility] Immature granulocytes/100 WBC (Bld) 0.5 % [facility] Interpretation and review of laboratory results Abnormal [facility] Lymphocytes (Bld) [#/Vol] 1.34 10*3/uL 1.16 - 3.51 K/uL [facility] Lymphocytes/100 WBC (Bld) 13.4 % [facility] MCH (RBC) [Entitic mass] 29.5 pg 25.9 - 33.9 pg [facility] MCHC (RBC) [Mass/Vol] 34.2 g/dL 31.4 - 35.9 g/dL [facility] MCV (RBC) [Entitic vol] 86.2 fL 79.6 - 97.7 fL [facility] Monocytes (Bld) [#/Vol] 0.76 10*3/uL 0.22 - 0.87 K/uL [facility] Monocytes/100 WBC (Bld) 7.6 % [facility] Neutrophils (Bld) [#/Vol] 7.74 10*3/uL High 1.64 - 7.28 K/uL [facility] Nucleated RBC/100 WBC (Bld) [Ratio] 0.0 % NINF [facility] Platelet mean volume (Bld) [Entitic vol] 10.3 fL 8.5 - 12.2 fL [facility] Platelets (Bld) [#/Vol] 280 10*3/uL 150 - 393 K/uL [facility] RBC (Bld) [#/Vol] 4.41 10*6/uL [facility] Segmented neutrophils/100 WBC (Bld) 77.2 % [facility] WBC (Bld) [#/Vol] 10.02 10*3/uL 3.99 - 11.19 K/uL [facility] CHEM 7 (LYTES,BUN,CREA,GLUC) on 10-08-2022 Anion gap [Moles/Vol] 11 mmol/L 7 - 17 mmol/L [facility] Chloride [Moles/Vol] 93 mmol/L Low 98 - 10 8 mmol/L [facility] CO2 [Moles/Vol] 28 mmol/L 21 - 31 mmol/L [facility] Creatinine [Mass/Vol] 0.72 mg/dL 0.50 - 1.20 mg/dL [facility] GFR/1.73 sq M.predicted CKD-EPI (S/P/Bld) [Vol rate/Area] 86 - PINF [facility] Comment on above: Reported eGFR is bas ed on the CKD-EPI 2020 equation using creatinine, age, and sex. Glucose [Mass/Vol] 106 mg/dL High 70 - 99 mg/dL [facility] Interpretation and review of laboratory results Abnormal [facility] Osmolality Calc [Osmolality] 272 Low [facility] Potassium [Moles/Vol] 4.3 mmol/L 3.5 - 5.0 mmol/L [facility] Sodium [Moles/Vol] 128 mmol/L Low 135 - 145 mmol/L [facility] Urea nitrogen [Mass/Vol] 15 mg/dL 7 - 25 mg/dL [facility] Urea nitrogen/Creatinine [Mass ratio] 21 mg/mg [facility] EXTRA LIGHT BLUE TOP DOUBLE SPINon 10-08-2022 Dummy LRR - Route to Double Spin Received [facility] PREPARE TO TRANSFUSE OR RED BLOOD CELLSon 10-08-2022 [facility] PROTIME-INRon 10-08-2022 INR Coag (Bld) [Relative time] 1.0 {INR} 0.9 - 1.1 [facility] Interpretation and review of laboratory results Normal [facility] PERF ONLY Ordered By: Adia Ross on 10-08-2022 aPTT Coag (PPP) [Time] 28.7 s OS [facility] PTT Mixing Study With Normal Plasma Not Indicated [facility] TYPE AND SCREEN - PREADMISSI ONon 10-08-2022 ABO/RH(D) TYPE AB NEG [facility] URINALYSIS REFLEX TO CULTURE PERFORMABLEOrdered By: Paula Dixon on 10-08-2022 Appearance (U) Clear Clear [facility] Bacteria LM Ql (Urine sed) TRACE Abnormal ABSENT [facility] Color (U) Yellow Yellow [facility] Epithelial cells.squamous LM Ql (Urine sed) 1/hpf = 1+ 1/hpf = 1+, 2-5/hpf = 2+, 0/hpf = 0+, ABSENT [facility] Glucose Test strip (U) [Mass/Vol] Negative Negative [facility] Interpretation and review of laboratory results Abnormal [facility] Ketones (U) [Mass/Vol] Negative Negative [facility] Leukocyte esterase Test strip Ql (U) Trace Abnormal Negative [facility] Nitrite Ql (U) Negative Negative [facility] pH (U) 7.0 [pH] 5.0 - 7.0 [facility] Protein (U) [Mass/Vol] Negative Negative [facility] RBC (U) [#/Vol] Negative Negative [facility] RBC LM.HPF (Urine sed) [#/Area] 0-2 [facility] Specific gravity (U) [Rel density] 1.015 1.001 - PINF [facility] Urobilinogen (U) [Mass/Vol] 0.2 E.U./dL 0.2 E.U/dL, 1.0 E.U/dL [facility] WBC LM.HPF (Urine sed) [#/Area] 0-5 [facility] XR Chest PA and Lateralon IMPRESSION: [...] Normal IMPRESSION IMPRESSION: No acute cardiopulmonary disease [facility] Radiology Study observation (narrative) [facility] XR Chest PA and LateralOrder ed By: Abraham Bahena on 10-08-2022 [facility] Work Phone: CT Cheston 10-06-2022 IMPRESSION: Agree [...] separately. IMPRESSION IMPRESSION: Agree with outside interpretation. [facility] CT ChestOrdered By: Ernie Coburn on 10-06-2022 [facility] Work Phone: CT Abdomen and Pelvison Outside Imaging Stud y for Support of Clinical Care This study was sent from an outside facility to [facility] for support of clinical care of the patient within the [facility] system. [facility] CT Cheston 10-04-2022 Radiology Study observation (narrative) [facility] Basophil percentageOrdered B y: Dr. Venegas on 09-21-2022 Chloride [Moles/Vol] 101 mmol/L 98-107 [facility] Cholesterol [Mass/Vol] 164 mg/dL <200 [facility] [place] Comment on above: <200 mg/dL Desirable 200-240 mg/dL Borderline >240 mg/dL High Risk Glucose [Mass/Vol] 107 mg/dL 74-106 [facility] Comment on above: Fasting Glucose resu lt from 100 to 125 mg/dL suggests IMPAIRED HOMEOSTASIS per A.D.A. criteria. Potassium [Moles/Vol] 3.7 mmol/L 3.5-5.1 [facility] Sodium [Moles/Vol] 132 mmol/L 136-145 [facility] Triglyceride [Mass/Vol] 97 mg/dL <199 [facility] Comment on above: The drugs N-Acetylcy steine and Metamizole may falsely depress this assay.Serum Triglycerides Reference Interval Normal <150 mg/dL Borderline high 150 - 199 mg/dL High 200 - 499 mg/dL Very High > or = 500 mg/dL Laboratory - Chemistry and C hemistry - challengeOrdered By: Dr. Venegas on 09-21-2022 ALT [Catalytic activity/Vol] 28 U/L 13-56 [facility] CO2 [Moles/Vol] 26.0 mmol/L 21.0-32.0 [facility] Urea nitrogen/Creatinine [Mass ratio] 19.0 mg/mg 10-20 [facility] No Panel InformationOrdered By: Dr. Venegas on 09-21-2022 Estimated GFR (MDRD) Amer 98 mL/min >60 [facility] Comment on above: GFR Calc Estimated GFR (MDRD) Non-Af Amer 81 mL/min >60 [facility] Comment on above: Non- GFR Calc Urine Microalbumin/Creatinin e Ratio 21.9 mg/g CRE <30 [facility] Serum or plasma calcium ena urement (mass/volume)Ordered By: Dr. Venegas on 09-21-2022 Calcium [Mass/Vol] 9.3 mg/dL 8.5-10.1 [facility] Serum or plasma cholesterol in HDL measurement (mass/volume)Ordered By: Dr. Venegas on 09-21-2022 Cholesterol in HDL [Mass/Vol] 63 mg/dL >40 [facility] Comment on above: The drugs N-Acetylcy steine and Metamizole may falsely depress this assay. Reference Range HDL <40 mg/dL Low HDL Cholesterol HDL >or= 60 mg/dL High HDL Cholesterol Serum or plasma cholesterol in VLDL measurement (mass/volume)Ordered By: Dr. Venegas on 09-21-2022 Cholesterol in VLDL [Mass/Vol] 19 mg/dL 5-40 [facility] Serum or plasma creatinine m easurement [...] Cholesterol in LDL [Mass/Vol] 82 mg/dL 0-130 [facility] Serum or plasma urea nitroge n measurement (mass/volume)Ordered By: Dr. Venegas on 09-21-2022 Urea nitrogen [Mass/Vol] 14 mg/dL 7-18 [facility] Thin prep Papanicolaou smear with manual screeningOrdered By: Dr. Venegas on 09-21-2022 Thin prep Papanicolaou smear with manual screening 18 U/L 15-37 [facility] Thin prep Papanicolaou smear with manual screening 5 5-15 [facility] Thin prep Papanicolaou smear with manual screening 7.6 mg/L NO RANGE EST. [facility] Urine creatinine measurement (mass/volume)Ordered By: Dr. Venegas on 09-21-2022 Creatinine (U) [Mass/Vol] 34.60 mg/dL NO RANGE EST. [facility] Basophil percentageon 2021 Chloride [Moles/Vol] 101 mmol/L 98-107 [facility] Work Phone: Cholesterol [Mass/Vol] 155 mg/dL <200 [facility] [place] Work Phone: Comment on above: <200 mg/dL Desirable 200-240 mg/dL Borderline >240 mg/dL High Risk Glucose [Mass/Vol] 152 mg/dL 74-106 [facility] Work Phone: Comment on above: Fasting Glucose resu lt greater than or equal to 126 mg/dL suggests DIABETES MELLITUS per A.D.A. criteria. Potassium [Moles/Vol] 3.7 mmol/L 3.5-5.1 [facility] Work Phone: Sodium [Moles/Vol] 135 mmol/L 136-145 [facility] Work Phone: Triglyceride [Mass/Vol] 180 mg/dL <199 [facility] Work Phone: Comment on above: The drugs N-Acetylcy steine and Metamizole may falsely depress this assay.Serum Triglycerides Reference Interval Normal <150 mg/dL Borderline high 150 - 199 mg/dL High 200 - 499 mg/dL Very High > or = 500 mg/dL Laboratory - Chemistry and C hemistry - challengeon 03-23-2022 ALT [Catalytic activity/Vol] 26 U/L 13-56 [facility] Work Phone: CO2 [Moles/Vol] 27.0 mmol/L 21.0-32.0 [facility] Work Phone: Urea nitrogen/Creatinine [Mass ratio] 23.6 mg/mg 10-20 [facility] Work Phone: No Panel Informationon 03-23 Estimated GFR (MDRD) Amer 79 mL/min >60 [facility] Work Phone: Comment on above: GFR Calc Estimated GFR (MDRD) Non-Af Amer 65 mL/min >60 [facility] Work Phone: Comment on above: Non- GFR Calc Serum or plasma calcium ena urement (mass/volume)on 03-23-2022 Calcium [Mass/Vol] 9.4 mg/dL 8.5-10.1 [facility] Work Phone: Serum or plasma cholesterol in HDL measurement (mass/volume)on 03-23-2022 Cholesterol in HDL [Mass/Vol] 53 mg/dL >40 [facility] Work Phone: Comment on above: The drugs N-Acetylcy steine and Metamizole may falsely depress this assay. Reference Range HDL <40 mg/dL Low HDL Cholesterol HDL >or= 60 mg/dL High HDL Cholesterol Serum or plasma cholesterol in VLDL measurement (mass/volume)on 03-23-2022 Cholesterol in VLDL [Mass/Vol] 36 mg/dL 5-40 [facility] Work Phone: Serum or plasma creatinine [...] Cholesterol in LDL [Mass/Vol] 66 mg/dL 0-130 [facility] Work Phone: Serum or plasma urea nitroge n measurement (mass/volume)on 03-23-2022 Urea nitrogen [Mass/Vol] 21 mg/dL -18 [facility] Work Phone: Thin prep Papanicolaou smear with manual screeningon 03-23-2022 Thin prep Papanicolaou smear with manual screening 17 U/L 15-37 [facility] Work Phone: Thin prep Papanicolaou smear with manual screening 7 5-15 [facility] Work Phone: Vital Signs Date Time Vital Sign Value Performing Clinician Facility 03-13-2025 08:15-0400 Body mass index (BMI) [Ratio] 22.6 kg/m2 Dr. Monika Venegas MD Work Phone: [facility] 03-13-2025 08:15-0400 Body weight 45.[address] Monika Venegas MD Work Phone: [facility] 03-13-2025 08:15-0400 Diastolic blood pressure 53 mm[Hg] Dr. Monika Venegas MD Work Phone: [facility] 03-13-2025 08:15-0400 Heart rate 61 /min Dr. Monika Venegas MD Work Phone: [facility] 03-13-2025 08:15-0400 Respiratory rate 18 /min Dr. Monika Venegas MD Work Phone: [facility] 03-13-2025 08:15-0400 Systolic blood pressure 110 mm[Hg] Dr. Monika Venegas MD Work Phone: [facility] 02-26-2025 09:53-0400 Body temperature 98.6 [degF] Dr. Monika Venegas MD Work Phone: [facility] 02-26-2025 09:53-0400 Body weight 47.[address] Monika Venegas MD Work Phone: 5(549)585-880612 [place] [address] 02-26-2025 09:53-0400 Diastolic blood pressure 63 mm[Hg] Dr. Monika Venegas MD Work Phone: 8(389)137-897875 [place] [address] 02-26-2025 09:53-0400 Heart rate 63 /min Dr. Monika Venegas MD Work Phone: 8(341)082-570875 [place] [address] 02-26-2025 09:53-0400 Respiratory rate 17 /min Dr. Monika Venegas MD Work Phone: 5(286)094-736875 [place] [address] 02-26-2025 09:53-0400 SaO2% (BldA) [Mass fraction] 97 % Dr. Monika Venegas MD Work Phone: 8(562)400-045975 [place] [address] 02-26-2025 09:53-0400 Systolic blood pressure 131 mm[Hg] Dr. Monika Venegas MD Work Phone: 3(287)571-605375 [place] [address] 01-31-2025 14:41-0400 Body weight 50.[address] Monika Venegas MD Work Phone: 7(270)441-474675 [place] [address] 01-31-2025 14:41-0400 Diastolic blood pressure 53 mm[Hg] Dr. Monika Venegas MD Work Phone: 2(613)672-962975 [place] [address] 01-31-2025 14:41-0400 Heart rate 62 /min Dr. Monika Venegas MD Work Phone: 2(340)408-064875 [place] [address] 01-31-2025 14:41-0400 Respiratory rate 18 /min Dr. Monika Venegas MD Work Phone: 1(873)366-638412 [place] [address] 01-31-2025 14:41-0400 Systolic blood pressure 183 mm[Hg] Dr. Monika Venegas MD Work Phone: 2(513)391-478775 [place] [address] 01-18-2025 15:32-0400 Body height 142.[address] Monika Venegas MD Work Phone: 5(424)426-907212 [place] [address] 01-18-2025 15:32-0400 Body mass index (BMI) [Ratio] 23.8 kg/m2 Dr. Monika Venegas MD Work Phone: 8(846)299-577612 [place] [address] 01-18-2025 15:32-0400 Body weight 48.[address] Monika Venegas MD Work Phone: 5(860)098-902312 [place] [address] 01-18-2025 15:32-0400 Diastolic blood pressure 56 mm[Hg] Dr. Monika Venegas MD Work Phone: 2(320)477-212212 [place] [address] 01-18-2025 15:32-0400 Heart rate 65 /min Dr. Monika Venegas MD Work Phone: 7(738)090-819275 [place] [address] 01-18-2025 15:32-0400 Respiratory rate 18 /min Dr. Monika Venegas MD Work Phone: 8(765)403-333775 [place] [address] 01-18-2025 15:32-0400 SaO2% (BldA) [Mass fraction] 98 % Dr. Monika Venegas MD Work Phone: 7(563)563-810475 [place] [address] 01-18-2025 15:32-0400 Systolic blood pressure 174 mm[Hg] Dr. Monika Venegas MD Work Phone: 9(551)340-227112 [place] [address] 12-20-2024 11:19-0400 Body temperature 98.3 [degF] Dr. Monika Venegas MD Work Phone: 7(559)750-169075 [place] [address] 12-20-2024 11:19-0400 Diastolic blood pressure 72 mm[Hg] Dr. Monika Venegas MD Work Phone: 6(669)716-410875 [place] [address] 12-20-2024 11:19-0400 Heart rate 63 /min Dr. Monika Venegas MD Work Phone: 2(460)633-785112 [place] [address] 12-20-2024 11:19-0400 Respiratory rate 16 /min Dr. Monika Venegas MD Work Phone: 5(523)247-217887 [address] 12-20-2024 11:19-0400 SaO2% (BldA) [Mass fraction] 98 % Dr. Monika Venegas MD Work Phone: 9(441)355-843412 [place] [address] 12-20-2024 11:19-0400 Systolic blood pressure 162 mm[Hg] Dr. Monika Venegas MD Work Phone: 0(920)520-425075 [place] [address] 12-20-2024 08:52-0400 Body temperature 98.2 [degF] Dr. Monika Venegas MD Work Phone: 0(212)770-177475 [place] [address] 12-20-2024 08:52-0400 Diastolic blood pressure 65 mm[Hg] Dr. Monika Venegas MD Work Phone: 7(107)321-308575 [place] [address] 12-20-2024 08:52-0400 Heart rate 67 /min Dr. Monika Venegas MD Work Phone: 9(884)417-482475 [place] [address] 12-20-2024 08:52-0400 Respiratory rate 17 /min Dr. Monika Venegas MD Work Phone: 7(837)688-505275 [place] [address] 12-20-2024 08:52-0400 SaO2% (BldA) [Mass fraction] 99 % Dr. Monika Venegas MD Work Phone: 1(677)816-974175 [place] [address] 12-20-2024 08:52-0400 Systolic blood pressure 182 mm[Hg] Dr. Monika Venegas MD Work Phone: 9(637)695-746075 [place] [address] 12-11-2024 15:21-0400 Body height 142.[address] Monika Venegas MD Work Phone: 6(465)134-639175 [place] [address] 12-11-2024 15:21-0400 Body mass index (BMI) [Ratio] 24.4 kg/m2 Dr. Monika Venegas MD Work Phone: 0(246)184-148875 [place] [address] 12-11-2024 15:21-0400 Body weight 49.[address] Monika Venegas MD Work Phone: 5(814)351-317275 [place] [address] 12-11-2024 15:21-0400 Diastolic blood pressure 56 mm[Hg] Dr. Monika Venegas MD Work Phone: 2(072)806-893475 [place] [address] 12-11-2024 15:21-0400 Heart rate 64 /min Dr. Monika Venegas MD Work Phone: 2(109)818-250075 [place] [address] 12-11-2024 15:21-0400 Respiratory rate 18 /min Dr. Monika Venegas MD Work Phone: 4(763)773-807275 [place] [address] 12-11-2024 15:21-0400 SaO2% (BldA) [Mass fraction] 94 % Dr. Monika Venegas MD Work Phone: 1(936)700-177112 [place] [address] 12-11-2024 15:21-0400 Systolic blood pressure 127 mm[Hg] Dr. Monika Venegas MD Work Phone: 9(577)969-629075 [place] [address] 12-06-2024 21:13-0400 Body temperature 97.7 [degF] Dr. Monika Venegas MD Work Phone: 5(723)217-167875 [place] [address] 12-06-2024 21:13-0400 Diastolic blood pressure 44 mm[Hg] Dr. Monika Venegas MD Work Phone: 6(843)325-701775 [place] [address] 12-06-2024 21:13-0400 Heart rate 68 /min Dr. Monika Venegas MD Work Phone: 4(309)981-448975 [place] [address] 12-06-2024 21:13-0400 Respiratory rate 16 /min Dr. Monika Venegas MD Work Phone: 8(714)642-930275 [place] [address] 12-06-2024 21:13-0400 SaO2% (BldA) [Mass fraction] 97 % Dr. Monika Venegas MD Work Phone: 8(160)351-624175 [place] [address] 12-06-2024 21:13-0400 Systolic blood pressure 161 mm[Hg] Dr. Monika Venegas MD Work Phone: 4(803)434-300875 [place] [address] 12-06-2024 03:08-0400 Body mass index (BMI) [Ratio] 23.9 kg/m2 Dr. Monika Venegas MD Work Phone: 0(652)587-142075 [place] [address] 12-06-2024 03:08-0400 Body weight 48.[address] Monika Venegas MD Work Phone: 6(108)529-869675 [place] [address] 12-04-2024 10:59-0400 Body height 142.[address] Monika Venegas MD Work Phone: 5(881)506-539775 [place] [address] 12-03-2024 22:00-0400 Body temperature 97.8 [degF] Dr. Monika Venegas MD Work Phone: [facility] 12-03-2024 22:00-0400 Diastolic blood pressure 55 mm[Hg] Dr. Monika Venegas MD Work Phone: 3(048)991-215275 [place] [address] 12-03-2024 22:00-0400 Heart rate 60 /min Dr. Monika Venegas MD Work Phone: 2(035)671-992975 [place] [address] 12-03-2024 22:00-0400 Respiratory rate 15 /min Dr. Monika Venegas MD Work Phone: 9(514)678-394175 [place] [address] 12-03-2024 22:00-0400 SaO2% (BldA) [Mass fraction] 97 % Dr. Monika Venegas MD Work Phone: 0(965)710-765875 [place] [address] 12-03-2024 22:00-0400 Systolic blood pressure 159 mm[Hg] Dr. Monika Venegas MD Work Phone: 1(720)494-851075 [place] [address] 12-03-2024 17:32-0400 Body mass index (BMI) [Ratio] 25.3 kg/m2 Dr. Monika Venegas MD Work Phone: 2(097)812-413475 [place] [address] 12-03-2024 17:32-0400 Body weight 49.[address] Monika Venegas MD Work Phone: 2(116)251-527875 [place] [address] 12-03-2024 15:46-0400 Body height 139.[address] Monika Vneegas MD Work Phone: 3(628)725-445575 [place] [address] 11-29-2024 08:20-0400 Diastolic blood pressure 44 mm[Hg] Dr. Monika Venegas MD Work Phone: 3(630)675-104075 [place] [address] 11-29-2024 08:20-0400 Heart rate 70 /min Dr. Monika Venegas MD Work Phone: 3(732)443-432875 [place] [address] 11-29-2024 08:20-0400 Systolic blood pressure 126 mm[Hg] Dr. Monika Venegas MD Work Phone: 6(177)115-918175 [place] [address] 11-29-2024 06:18-0400 Body temperature 98.7 [degF] Dr. Monika Venegas MD Work Phone: [facility] 11-29-2024 06:18-0400 Respiratory rate 20 /min Dr. Monika Venegas MD Work Phone: [facility] 11-29-2024 06:18-0400 SaO2% (BldA) [Mass fraction] 97 % Dr. Monika Venegas MD Work Phone: [facility] 11-26-2024 10:00-0400 Body height 139.[address] Monika Venegas MD Work Phone: [facility] 11-26-2024 10:00-0400 Body weight 48.[address] Monika Venegas MD Work Phone: [facility] 11-23-2024 05:03-0400 Body mass index (BMI) [Ratio] 24.7 kg/m2 Dr. Monika Venegas MD Work Phone: [facility] 11-12-2024 11:54-0400 Body height 142.2 cm Ignacio De La Garza Sr., MD, PhD Work Phone: [facility] 11-12-2024 11:54-0400 Body mass index (BMI) [Ratio] 24.89 kg/m2 Ignacio De La Garza Sr., MD, PhD Work Phone: [facility] 11-12-2024 11:54-0400 Body temperature 97.9 [degF] Ignacio De La Garza Sr., MD, PhD Work Phone: [facility] 11-12-2024 11:54-0400 Body weight 50.35 kg Ignacio De La Garza Sr., MD, PhD Work Phone: [facility] 11-12-2024 11:54-0400 Diastolic blood pressure 66 mm[Hg] Ignacio De La Garza Sr., MD, PhD Work Phone: [facility] 11-12-2024 11:54-0400 Heart rate 59 /min Ignacio De La Garza Sr., MD, PhD Work Phone: [facility] 11-12-2024 11:54-0400 Respiratory rate 18 /min Ignacio De La Garza Sr., MD, PhD Work Phone: [facility] 11-12-2024 11:54-0400 SaO2% (BldA) [Mass fraction] 98 % Ignacio De La Garza Sr., MD, PhD Work Phone: [facility] 11-12-2024 11:54-0400 Systolic blood pressure 150 mm[Hg] Ignacio De La Garza Sr., MD, PhD Work Phone: [facility] 11-07-2024 12:00-0400 Diastolic blood pressure 59 mm[Hg] Dr. Monika Venegas MD Work Phone: [facility] 11-07-2024 12:00-0400 Heart rate 58 /min Dr. Monika Venegas MD Work Phone: [facility] 11-07-2024 12:00-0400 Respiratory rate 20 /min Dr. Monika Venegas MD Work Phone: [facility] 11-07-2024 12:00-0400 SaO2% (BldA) [Mass fraction] 100 % Dr. Monika Venegas MD Work Phone: [facility] 11-07-2024 12:00-0400 Systolic blood pressure 194 mm[Hg] Dr. Monika Venegas MD Work Phone: [facility] 11-07-2024 11:07-0400 Body mass index (BMI) [Ratio] 26.1 kg/m2 Dr. Monika Venegas MD Work Phone: [facility] 11-07-2024 11:07-0400 Body temperature 97.9 [degF] Dr. Monika Venegas MD Work Phone: [facility] 11-07-2024 11:07-0400 Body weight [address] Monika Venegas MD Work Phone: [facility] 11-07-2024 10:59-0400 Body mass index (BMI) [Ratio] 24 kg/m2 Dr. Monika Venegas MD Work Phone: [facility] 11-07-2024 10:59-0400 Body weight [address] Monika Venegas MD Work Phone: [facility] 11-07-2024 10:52-0400 Body temperature 98.7 [degF] Dr. Monika Venegas MD Work Phone: 4(633)388-105212 [place] [address] 09-27-2024 13:05-0400 Diastolic blood pressure 64 mm[Hg] Dr. Monika Venegas MD Work Phone: 1(148)184-540112 [place] [address] 09-27-2024 13:05-0400 Heart rate 51 /min Dr. Monika Venegas MD Work Phone: [facility] 09-27-2024 13:05-0400 Respiratory rate 16 /min Dr. Monika Venegas MD Work Phone: [facility] 09-27-2024 13:05-0400 SaO2% (BldA) [Mass fraction] 98 % Dr. Monika Venegas MD Work Phone: [facility] 09-27-2024 13:05-0400 Systolic blood pressure 180 mm[Hg] Dr. Monika Venegas MD Work Phone: [facility] 09-27-2024 09:20-0400 Body height 142.[address] Monika Venegas MD Work Phone: [facility] 09-27-2024 09:20-0400 Body mass index (BMI) [Ratio] 24.8 kg/m2 Dr. Monika Venegas MD Work Phone: [facility] 09-27-2024 09:20-0400 Body temperature 98 [degF] Dr. Monika Venegas MD Work Phone: [facility] 09-27-2024 09:20-0400 Body weight 50.[address] Monika Venegas MD Work Phone: [facility] 07-11-2024 11:09-0500 Body mass index (BMI) [Ratio] 24.98 kg/m2 Nimo Bueno MD Work Phone: [facility] 07-11-2024 11:09-0500 Body temperature 97.5 [degF] Nimo Bueno MD Work Phone: 1(989)874-201442 [address] 07-11-2024 11:09-0500 Body weight 50.53 kg Nimo Bueno MD Work Phone: 5(327)518-512642 [address] 07-11-2024 11:09-0500 Diastolic blood pressure 70 mm[Hg] Nimo Bueno MD Work Phone: 8(663)277-965431 [place] [address] Comment on above: manual 07-11-2024 11:09-0500 Heart rate 57 /min Nimo Bueno MD Work Phone: [facility] 07-11-2024 11:09-0500 Respiratory rate 16 /min Nimo Bueno MD Work Phone: [facility] 07-11-2024 11:09-0500 SaO2% (BldA) [Mass fraction] 97 % Nimo Bueno MD Work Phone: [facility] 07-11-2024 11:09-0500 Systolic blood pressure 162 mm[Hg] Nimo Bueno MD Work Phone: [facility] Comment on above: manual 03-14-2024 15:48-0400 Body mass index (BMI) [Ratio] 25.18 kg/m2 Nimo Bueno MD Work Phone: [facility] 03-14-2024 15:48-0400 Body temperature 97.5 [degF] Nimo Bueno MD Work Phone: [facility] 03-14-2024 15:48-0400 Body weight 50.94 kg Nimo Bueno MD Work Phone: [facility] 03-14-2024 15:48-0400 Diastolic blood pressure 68 mm[Hg] Nimo Bueno MD Work Phone: [facility] 03-14-2024 15:48-0400 Heart rate 56 /min Nimo Bueno MD Work Phone: [facility] 03-14-2024 15:48-0400 Respiratory rate 16 /min Nimo uBeno MD Work Phone: [facility] 03-14-2024 15:48-0400 SaO2% (BldA) [Mass fraction] 98 % Nimo Bueno MD Work Phone: [facility] 03-14-2024 15:48-0400 Systolic blood pressure 140 mm[Hg] Nimo Bueno MD Work Phone: [facility] 03-14-2024 13:56-0400 Diastolic blood pressure 87 mm[Hg] Nimo Bueno MD Work Phone: [facility] 03-14-2024 13:56-0400 Heart rate 55 /min Nimo Bueno MD Work Phone: [facility] 03-14-2024 13:56-0400 Systolic blood pressure 220 mm[Hg] Nimo Bueno MD Work Phone: [facility] 11-29-2023 15:40-0400 Body mass index (BMI) [Ratio] 26.21 kg/m2 Nimo Bueno MD Work Phone: [facility] 11-29-2023 15:40-0400 Body temperature 97.39 [degF] Nimo Bueno MD Work Phone: [facility] 11-29-2023 15:40-0400 Body weight 53.02 kg Nimo Bueno MD Work Phone: [facility] 11-29-2023 15:40-0400 Diastolic blood pressure 60 mm[Hg] Nimo Bueno MD Work Phone: [facility] 11-29-2023 15:40-0400 Heart rate 56 /min Nimo Bueno MD Work Phone: [facility] 11-29-2023 15:40-0400 Respiratory rate 16 /min Nimo Bueno MD Work Phone: [facility] 11-29-2023 15:40-0400 SaO2% (BldA) [Mass fraction] 98 % Nimo Bueno MD Work Phone: [facility] 11-29-2023 15:40-0400 Systolic blood pressure 128 mm[Hg] Nimo Bueno MD Work Phone: [facility] 11-29-2023 13:38-0400 Diastolic blood pressure 77 mm[Hg] Nimo Bueno MD Work Phone: [facility] 11-29-2023 13:38-0400 Heart rate 58 /min Nimo Bueno MD Work Phone: [facility] 11-29-2023 13:38-0400 Systolic blood pressure 199 mm[Hg] Nimo Bueno MD Work Phone: [facility] 08-18-2023 13:25-0400 Diastolic blood pressure 92 mm[Hg] Kristine Salts HYGIENE COORDINATOR-SUPERVISOR MACHINE SETTER Work Phone: [facility] 08-18-2023 13:25-0400 Heart rate 66 /min Kristine Salts HYGIENE COORDINATOR-SUPERVISOR MACHINE SETTER Work Phone: [facility] 08-18-2023 13:25-0400 Systolic blood pressure 202 mm[Hg] Kristine Su ABREU Work Phone: [facility] 07-19-2023 13:50-0500 Body height 142.[address] Monika Venegas Work Phone: [facility] 07-19-2023 13:49-0500 Body mass index (BMI) [Ratio] 26.4 kg/m2 Dr. Monika Venegas Work Phone: [facility] 07-19-2023 13:49-0500 Body weight 53.[address] Monika Venegas Work Phone: [facility] 07-19-2023 13:49-0500 Diastolic blood pressure 70 mm[Hg] Dr. Monika Venegas Work Phone: [facility] 07-19-2023 13:49-0500 Heart rate 63 /min Dr. Monika Venegas Work Phone: [facility] 07-19-2023 13:49-0500 Respiratory rate 18 /min Dr. Monika Venegas Work Phone: [facility] 07-19-2023 13:49-0500 SaO2% (BldA) [Mass fraction] 99 % Dr. Monika Venegas Work Phone: [facility] 07-19-2023 13:49-0500 Systolic blood pressure 179 mm[Hg] Dr. Monika Venegas Work Phone: [facility] 05-19-2023 14:01-0500 Body mass index (BMI) [Ratio] 27.89 kg/m2 Nimo Bueno MD Work Phone: [facility] 05-19-2023 14:01-0500 Body temperature 97.2 [degF] Nimo Bueno MD Work Phone: [facility] 05-19-2023 14:01-0500 Body weight 56.43 kg Nimo Bueno MD Work Phone: [facility] 05-19-2023 14:01-0500 Diastolic blood pressure 70 mm[Hg] Nimo Bueno MD Work Phone: [facility] 05-19-2023 14:01-0500 Heart rate 68 /min Nimo Bueno MD Work Phone: [facility] 05-19-2023 14:01-0500 Respiratory rate 16 /min Nimo Bueno MD Work Phone: [facility] 05-19-2023 14:01-0500 SaO2% (BldA) [Mass fraction] 98 % Nimo Bueno MD Work Phone: [facility] 05-19-2023 14:01-0500 Systolic blood pressure 142 mm[Hg] Nimo Bueno MD Work Phone: [facility] 03-15-2023 10:29-0400 Body mass index (BMI) [Ratio] 26.9 kg/m2 Nimo Bueno MD Work Phone: [facility] 03-15-2023 10:29-0400 Body temperature 97.9 [degF] Nimo Bueno MD Work Phone: [facility] 03-15-2023 10:29-0400 Body weight 54.43 kg Nimo Bueno MD Work Phone: [facility] 03-15-2023 10:29-0400 Diastolic blood pressure 68 mm[Hg] Nimo Bueno MD Work Phone: [facility] 03-15-2023 10:29-0400 Heart rate 62 /min Nimo Bueno MD Work Phone: [facility] 03-15-2023 10:29-0400 Respiratory rate 16 /min Nimo Bueno MD Work Phone: [facility] 03-15-2023 10:29-0400 SaO2% (BldA) [Mass fraction] 97 % Nimo Bueno MD Work Phone: [facility] 03-15-2023 10:29-0400 Systolic blood pressure 160 mm[Hg] Nimo Bueno MD Work Phone: [facility] 03-08-2023 10:08-0400 Body mass index (BMI) [Ratio] 27.06 kg/m2 Ameya Singh MD Work Phone: [facility] 03-08-2023 10:08-0400 Body temperature 97.9 [degF] Ameya Singh MD Work Phone: [facility] 03-08-2023 10:08-0400 Body weight 54.75 kg Ameya Singh MD Work Phone: [facility] 03-08-2023 10:08-0400 Diastolic blood pressure 66 mm[Hg] Ameya Singh MD Work Phone: [facility] 03-08-2023 10:08-0400 Heart rate 70 /min Ameya Singh MD Work Phone: [facility] 03-08-2023 10:08-0400 Respiratory rate 16 /min Ameya Singh MD Work Phone: [facility] 03-08-2023 10:08-0400 SaO2% (BldA) [Mass fraction] 98 % Ameya Singh MD Work Phone: [facility] 03-08-2023 10:08-0400 Systolic blood pressure 152 mm[Hg] Ameya Singh MD Work Phone: [facility] 03-01-2023 09:59-0400 Body mass index (BMI) [Ratio] 27.15 kg/m2 Nimo Bueno MD Work Phone: [facility] 03-01-2023 09:59-0400 Body temperature 97.59 [degF] Nimo Bueno MD Work Phone: [facility] 03-01-2023 09:59-0400 Body weight 54.93 kg Nimo Bueno MD Work Phone: [facility] 03-01-2023 09:59-0400 Diastolic blood pressure 62 mm[Hg] Nimo Bueno MD Work Phone: 1(573)219-591342 [address] 03-01-2023 09:59-0400 Heart rate 69 /min Nimo Bueno MD Work Phone: 0(952)585-295842 [address] 03-01-2023 09:59-0400 Respiratory rate 16 /min Nimo Bueno MD Work Phone: [facility] 03-01-2023 09:59-0400 SaO2% (BldA) [Mass fraction] 99 % Nimo Bueno MD Work Phone: [facility] 03-01-2023 09:59-0400 Systolic blood pressure 118 mm[Hg] Nimo Bueno MD Work Phone: [facility] 02-15-2023 09:35-0400 Body mass index (BMI) [Ratio] 26.72 kg/m2 Nimo Bueno MD Work Phone: [facility] 02-15-2023 09:35-0400 Body temperature 97.81 [degF] Nimo Bueno MD Work Phone: [facility] 02-15-2023 09:35-0400 Body weight 54.07 kg Nimo Bueno MD Work Phone: [facility] 02-15-2023 09:35-0400 Diastolic blood pressure 62 mm[Hg] Nimo Bueno MD Work Phone: [facility] 02-15-2023 09:35-0400 Heart rate 66 /min Nimo Bueno MD Work Phone: 4(276)728-941042 [address] 02-15-2023 09:35-0400 Respiratory rate 16 /min Nimo Bueno MD Work Phone: 1(703)367-461242 [address] 02-15-2023 09:35-0400 SaO2% (BldA) [Mass fraction] 97 % Nimo Bueno MD Work Phone: 3(104)347-097942 [address] 02-15-2023 09:35-0400 Systolic blood pressure 148 mm[Hg] Nimo Bueno MD Work Phone: 5(021)896-637342 [address] 02-08-2023 10:31-0400 Body mass index (BMI) [Ratio] 27.33 kg/m2 Nimo Bueno MD Work Phone: 0(056)483-145742 [address] 02-08-2023 10:31-0400 Body temperature 97.7 [degF] Nimo Bueno MD Work Phone: 3(271)939-229842 [address] 02-08-2023 10:31-0400 Body weight 55.29 kg Nimo Bueno MD Work Phone: 2(506)508-978342 [address] 02-08-2023 10:31-0400 Diastolic blood pressure 72 mm[Hg] Nimo Bueno MD Work Phone: [facility] 02-08-2023 10:31-0400 Heart rate 69 /min Nimo Bueno MD Work Phone: [facility] 02-08-2023 10:31-0400 Respiratory rate 16 /min Nimo Bueno MD Work Phone: [facility] 02-08-2023 10:31-0400 SaO2% (BldA) [Mass fraction] 98 % Nimo Bueno MD Work Phone: [facility] 02-08-2023 10:31-0400 Systolic blood pressure 150 mm[Hg] Nimo Bueno MD Work Phone: [facility] 01-19-2023 10:59-0400 Body mass index (BMI) [Ratio] 26.3 kg/m2 Nimo Bueno MD Work Phone: 4(398)525-813742 [address] 01-19-2023 10:59-0400 Body temperature 98.1 [degF] Nimo Bueno MD Work Phone: 3(681)829-109842 [address] 01-19-2023 10:59-0400 Body weight 53.21 kg Nimo Bueno MD Work Phone: 9(946)424-670631 [place] [address] 01-19-2023 10:59-0400 Diastolic blood pressure 68 mm[Hg] Nimo Bueno MD Work Phone: [facility] 01-19-2023 10:59-0400 Heart rate 65 /min Nimo Bueno MD Work Phone: [facility] 01-19-2023 10:59-0400 Respiratory rate 16 /min Nimo Bueno MD Work Phone: [facility] 01-19-2023 10:59-0400 SaO2% (BldA) [Mass fraction] 98 % Nimo Bueno MD Work Phone: [facility] 01-19-2023 10:59-0400 Systolic blood pressure 154 mm[Hg] Nimo Bueno MD Work Phone: [facility] 01-13-2023 13:14-0400 Body height 142.[address] Monika Venegas Work Phone: [facility] 01-13-2023 13:14-0400 Body mass index (BMI) [Ratio] 26.2 kg/m2 Dr. Monika Venegas Work Phone: [facility] 01-13-2023 13:14-0400 Body weight 53.[address] Monika Venegas Work Phone: [facility] 01-13-2023 13:14-0400 Diastolic blood pressure 67 mm[Hg] Dr. Monika Venegas Work Phone: 6(205)862-606112 [place] [address] 01-13-2023 13:14-0400 Heart rate 70 /min Dr. Monika Venegas Work Phone: 8(874)419-124587 [address] 01-13-2023 13:14-0400 SaO2% (BldA) [Mass fraction] 99 % Dr. Moniak Venegas Work Phone: 2(551)539-984487 [address] 01-13-2023 13:14-0400 Systolic blood pressure 130 mm[Hg] Dr. Monika Venegas Work Phone: 1(927)841-591512 [place] [address] 01-01-2023 07:46-0400 Body temperature 97.6 [degF] Dr. Monika Venegas Work Phone: 9(874)649-493812 [place] [address] 01-01-2023 07:46-0400 Diastolic blood pressure 43 mm[Hg] Dr. Monika Venegas Work Phone: [facility] 01-01-2023 07:46-0400 Heart rate 71 /min Dr. Monika Venegas Work Phone: [facility] 01-01-2023 07:46-0400 Respiratory rate 16 /min Dr. Monika Venegas Work Phone: [facility] 01-01-2023 07:46-0400 SaO2% (BldA) [Mass fraction] 97 % Dr. Monika Venegas Work Phone: [facility] 01-01-2023 07:46-0400 Systolic blood pressure 118 mm[Hg] Dr. Monika Venegas Work Phone: [facility] 12-31-2022 20:30-0400 Body mass index (BMI) [Ratio] 27.1 kg/m2 Dr. Monika Venegas Work Phone: [facility] 12-31-2022 05:15-0400 Body weight [address] Monika Venegas Work Phone: [facility] 12-24-2022 15:11-0400 Body weight 55.[address] Monika Venegas Work Phone: [facility] 12-24-2022 13:54-0400 Body temperature 97.7 [degF] Dr. Monika Venegas Work Phone: [facility] 12-24-2022 13:54-0400 Diastolic blood pressure 52 mm[Hg] Dr. Monika Venegas Work Phone: [facility] 12-24-2022 13:54-0400 Heart rate 79 /min Dr. Monika Venegas Work Phone: [facility] 12-24-2022 13:54-0400 Respiratory rate 18 /min Dr. Monika Venegas Work Phone: [facility] 12-24-2022 13:54-0400 SaO2% (BldA) [Mass fraction] 95 % Dr. Monika Venegas Work Phone: [facility] 12-24-2022 13:54-0400 Systolic blood pressure 115 mm[Hg] Dr. Monika Venegas Work Phone: [facility] 12-23-2022 18:15-0400 Body mass index (BMI) [Ratio] 27.4 kg/m2 Dr. Monika Venegas Work Phone: [facility] 12-23-2022 14:39-0400 Body mass index (BMI) [Ratio] 26.3 kg/m2 Dr. Monika Venegas Work Phone: [facility] 12-23-2022 07:32-0400 Body temperature 97.5 [degF] Dr. Monika Venegas Work Phone: [facility] 12-23-2022 07:32-0400 Diastolic blood pressure 46 mm[Hg] Dr. Monika Venegas Work Phone: [facility] 12-23-2022 07:32-0400 Heart rate 53 /min Dr. Monika Venegas Work Phone: [facility] 12-23-2022 07:32-0400 Respiratory rate 18 /min Dr. Monika Venegas Work Phone: [facility] 12-23-2022 07:32-0400 SaO2% (BldA) [Mass fraction] 97 % Dr. Monika Venegas Work Phone: [facility] 12-23-2022 07:32-0400 Systolic blood pressure 101 mm[Hg] Dr. Monika Venegas Work Phone: [facility] 12-22-2022 14:14-0400 Body height 144.[address] Monika Venegas Work Phone: [facility] 12-22-2022 14:14-0400 Body weight 55.[address] Monika Venegas Work Phone: [facility] 10-09-2022 12:16-0400 Body height 143.5 cm Shaye Weston HYGIENE COORDINATOR-SUPERVISOR MACHINE SETTER Work Phone: [facility] 10-09-2022 12:16-0400 Diastolic blood pressure 61 mm[Hg] Shaye Weston HYGIENE COORDINATOR-SUPERVISOR MACHINE SETTER Work Phone: [facility] 10-09-2022 12:16-0400 Heart rate 63 /min Shaye Weston HYGIENE COORDINATOR-SUPERVISOR MACHINE SETTER Work Phone: [facility] 10-09-2022 12:16-0400 Systolic blood pressure 190 mm[Hg] Shaye Weston HYGIENE COORDINATOR-SUPERVISOR MACHINE SETTER Work Phone: [facility] 10-08-2022 11:24-0400 Body height 142.2 cm Qian Randle MD Work Phone: [facility] 10-08-2022 11:24-0400 Body mass index (BMI) [Ratio] 27.31 kg/m2 Qian Randle MD Work Phone: 3(838)400-350835 [place] [address] 10-08-2022 11:24-0400 Body temperature 98.4 [degF] Qian Randle MD Work Phone: 8(980)101-186846 [address] 10-08-2022 11:24-0400 Body weight 55.25 kg Qian Randle MD Work Phone: 2(206)936-173446 [address] 10-08-2022 11:24-0400 Diastolic blood pressure 80 mm[Hg] Qian Randle MD Work Phone: 3(822)867-014653 [place] [address] 10-08-2022 11:24-0400 Heart rate 55 /min Qian Randle MD Work Phone: 0(389)708-103953 [place] [address] 10-08-2022 11:24-0400 Respiratory rate 16 /min Qian Randle MD Work Phone: 2(060)733-917135 [place] [address] 10-08-2022 11:24-0400 SaO2% (BldA) [Mass fraction] 99 % Qian Randle MD Work Phone: 4(727)646-304735 [place] [address] 10-08-2022 11:24-0400 Systolic blood pressure 128 mm[Hg] Qian Randle MD Work Phone: 5(431)216-329046 [address] 09-30-2022 11:21-0400 Diastolic blood pressure 72 mm[Hg] Ernie Kincaid MD Work Phone: [facility] Comment on above: manual providers aware 09-30-2022 11:21-0400 Systolic blood pressure 196 mm[Hg] Ernie Kincaid MD Work Phone: [facility] Comment on above: manual providers aware 09-30-2022 11:17-0400 Body height 142.2 cm Ernie Kincaid MD Work Phone: [facility] 09-30-2022 11:17-0400 Body mass index (BMI) [Ratio] 26.97 kg/m2 Ernie Kincaid MD Work Phone: [facility] 09-30-2022 11:17-0400 Body temperature 99.39 [degF] Ernie Kincaid MD Work Phone: [facility] 09-30-2022 11:17-0400 Body weight 54.57 kg Ernie Kincaid MD Work Phone: [facility] 09-30-2022 11:17-0400 Heart rate 62 /min Ernie Kincaid MD Work Phone: [facility] 09-30-2022 11:17-0400 Respiratory rate 16 /min Ernie Kincaid MD Work Phone: [facility] 09-30-2022 11:17-0400 SaO2% (BldA) [Mass fraction] 96 % Ernie Kincaid MD Work Phone: [facility] 09-15-2022 13:37-0400 Body height 142.[address] Monika Venegas Work Phone: [facility] 09-15-2022 13:37-0400 Body mass index (BMI) [Ratio] 27.3 kg/m2 Dr. Monika Venegas Work Phone: [facility] 09-15-2022 13:37-0400 Body temperature 97.4 [degF] Dr. Monika Venegas Work Phone: [facility] 09-15-2022 13:37-0400 Body weight 55.[address] Monika Venegas Work Phone: [facility] 09-15-2022 13:37-0400 Diastolic blood pressure 66 mm[Hg] Dr. Monika Venegas Work Phone: [facility] 09-15-2022 13:37-0400 Heart rate 53 /min Dr. Monika Venegas Work Phone: [facility] 09-15-2022 13:37-0400 Respiratory rate 17 /min Dr. Monika Venegas Work Phone: [facility] 09-15-2022 13:37-0400 SaO2% (BldA) [Mass fraction] 99 % Dr. Monika Venegas Work Phone: [facility] 09-15-2022 13:37-0400 Systolic blood pressure 177 mm[Hg] Dr. Monika Venegas Work Phone: [facility] Encounters Encounter Date Encounter Type Care Provider Facility Start: 03-27-2025 ambulatory Corey Kiran Facility:[facility] Start: 03-13-2025 End: 03-13-2025 Jagdish MARY -[facility] Work Phone: Start: 03-13-2025 End: 03-13-[address] Monika Venegas MD Work Phone: -[facility] Start: 02-26-2025 End: 02-26-[address] Monika Venegas MD Work Phone: -[facility] Start: 02-26-2025 End: 02-26-2025 Dr. Gagan Schulte MD -[facility] Work Phone: Start: 02-26-2025 End: 02-26-2025 Dr. Odilon Melchor MD -[facility] Work Phone: Start: 02-26-2025 End: 02-26-[address] Monika Venegas MD Work Phone: -[facility] Start: 02-26-2025 End: 02-26-2025 ambulatory Gagan Schulte Facility:[facility] Start: 01-31-2025 End: 01-31-2025 Alex MCKENZIE -[facility] Work Phone: Start: 01-31-2025 End: 01-31-[address] Monika Venegas MD Work Phone: -[facility] Start: 01-18-2025 End: 01-18-2025 Alex MCKENZIE -[facility] Work Phone: Start: 01-18-2025 End: 01-18-[address] Monika Venegas MD Work Phone: -[facility] Start: 01-17-2025 End: 01-17-[address] Monika Venegas MD Work Phone: -[facility]/Neurology Start: 01-17-2025 End: 01-17-2025 Dr. Odilon Melchor MD -[facility] Work Phone: Start: 01-17-2025 End: 01-17-2025 ambulatory Odilon Melchor Facility:[facility] Start: 01-14-2025 ambulatory Celeste [facility]AISER Fa cility:[facility] Start: 01-14-2025 Celeste Pruitt Kadie Solomon Start: 01-07-2025 ambulatory Monika Venegas Facility: [facility] Start: 01-07-2025 Celeste Solomon Start: 12-31-2024 ambulatory Celeste KAISER Fa cility:[facility] Start: 12-31-2024 Celeste Solomon Start: 12-25-2024 End: 12-25-[address] Monika Venegas MD Work Phone: -[facility] Start: 12-25-2024 End: 12-25-2024 Cyndie Jacome [facility] -[facility] Work Phone: Start: 12-24-2024 ambulatory Monika Venegas Facility: [facility] Start: 12-24-2024 Celeste Solomon Start: 12-20-2024 End: 12-20-[address] Monika Venegas MD Work Phone: -[facility] Start: 12-20-2024 End: 12-20-2024 Charles Watkins PA -[facility] Work Phone: Start: 12-20-2024 End: 12-20-2024 Dr. Odilon Melchor MD -[facility] Work Phone: Start: 12-20-2024 End: 12-20-[address] Moniak Venegas MD Work Phone: -[facility] Start: 12-20-2024 End: 12-20-2024 ambulatory Odilon Melchor Facility:[facility] Start: 12-17-2024 [facility] Start: 12-17-2024 Celeste Jacobo MD [facility] Start: 12-13-2024 ambulatory MONIKA VENEGAS Facility: [facility] Start: 12-11-2024 End: 12-11-[address] Rock Conn MD -[facility] Work Phone: Start: 12-11-2024 End: 12-11-2024 Dr. Rock Conn MD -[facility] Work Phone: Start: 12-11-2024 End: 12-11-[address] Monika Venegas MD Work Phone: [facility] Start: 12-11-2024 End: 12-11-[address] Monika Venegas MD Work Phone: -[facility] Start: 12-11-2024 End: 12-11-2024 Dr. Celeste Jacobo MD -[facility] Work Phone: Start: 12-10-2024 End: 12-10-[address] Monika Vengeas MD Work Phone: [facility] Start: 12-10-2024 End: 12-10-2024 Cyndie MARY -[facility] Work Phone: Start: 12-10-2024 ambulatory Celeste KAISER Fa cility:[facility] Start: 12-10-2024 Registered Referred Celeste Jacobo MD -[facility] Start: 12-10-2024 Celeste Jacobo MD - [facility] - [facility] Start: 12-06-2024 Non-patient / Non-visit Dr. Alix Hudson [facility] Work Phone: Start: 12-06-2024 Dr. Alix Hudson [facility] Work Phone: Start: 12-05-2024 ambulatory Darnell Lopez ty:[facility] Start: 12-05-2024 End: 12-06-2024 Evaluation and management of inpatient Dr. Alix Hudson [facility] Work Phone: Start: 12-05-2024 End: 12-06-2024 Dr. Alix Hudson DO [facility] Work Phone: Start: 12-05-2024 Non-patient / Non-visit Dr. Alix Hudson [facility] Work Phone: Start: 12-05-2024 Dr. Alix Hudson [facility] Work Phone: Start: 12-04-2024 Non-patient / Non-visit Dr. Alix Hudson [facility] Work Phone: Start: 12-04-2024 Dr. Alix Hudson [facility] Work Phone: Start: 12-03-2024 ambulatory Darnell Lopez ty:[facility] Start: 12-03-2024 Non-patient / Non-visit Dr. Haydee Gonzalez [facility] Work Phone: Start: 12-03-2024 Dr. Darnell Prasad [facility] Work Phone: Start: 12-03-2024 Evaluation and manag ement of inpatient Dr. Darnell Gonzalez DO [facility] Work Phone: Start: 12-03-[address] Monika Venegas MD Work Phone: -[facility] Start: 11-27-2024 Non-patient / Non-visit Dr. Morro Arias [facility] Work Phone: Start: 11-27-2024 Dr. Jo-Ann Arias [facility] Work Phone: Start: 11-26-2024 Non-patient / Non-visit Dr. Morro Arias [facility] Work Phone: Start: 11-26-2024 Dr. Jo-Ann Arias [facility] Work Phone: Start: 11-22-2024 Non-patient / Non-visit Dr. Morro Arias [facility] Work Phone: Start: 11-22-2024 Dr. Jo-Ann Arias [facility] Work Phone: Start: 2024 Non-patient / Non-visit Dr. Morro Arias [facility] Work Phone: Start: 2024 Dr. Jo-Ann Arias [facility] Work Phone: Start: 11-19-2024 Non-patient / Non-visit Dr. Morro Arias [facility] Work Phone: Start: 11-19-2024 Dr. Jo-Ann Arias [facility] Work Phone: Start: 11-16-2024 Non-patient / Non-visit Dr. Morro Arias [facility] Work Phone: Start: 11-16-2024 Dr. Jo-Ann Arias [facility] Work Phone: Start: 11-15-2024 Non-patient / Non-visit Dr. Morro Arias [facility] Work Phone: Start: 11-15-2024 Dr. Jo-Ann Arias [facility] Work Phone: Start: 11-13-2024 Non-patient / Non-visit Dr. Morro Arias [facility] Work Phone: Start: 11-13-2024 Dr. Jo-Ann Arias [facility] Work Phone: Start: 11-12-2024 ambulatory Nora Hugo Facility:[facility] Start: 11-12-2024 End: 11-29-2024 Evaluation and management of inpatient Dr. Jo-Ann Arias DO -Rehab Unit Work Phone: Start: 11-12-2024 End: 11-29-2024 Dr. Jo-Ann Arias DO -Rehab Unit Work Phone: Start: 11-07-2024 End: 11-12-2024 Evaluation and management of inpatient Ignacio De La Garza MD, PhD Work Phone: [phone] Comment on above: Epidural hematoma Start: 11-07-2024 ambulatory Monika Venegas Facility: [facility] Start: 11-07-2024 End: 11-07-2024 Dr. [place] [...] 07-24-2024 End: 07-24-2024 ambulatory Monika S Jolliff Facility:[facility] Start: 07-11-2024 End: 07-11-2024 Office outpatient visit 25 minutes Nimo Bueno MD Work Phone: Department of Radiation Oncology at [facility] Comment on above: Cancer of cerebral m eninges (Primary Dx); Skin change; Alopecia; S/P radiation therapy Start: 07-11-2024 ambulatory NIMO BUENO Facilit y:[facility] Start: 07-11-2024 End: 07-11-2024 Subsequent hospital visit by physician Kristine Blue HYGIENE COORDINATOR-SUPERVISOR MACHINE SETTER Work Phone: Imaging [facility] Comment on above: Arrived Start: 07-11-2024 ambulatory KRISTINE BLUE Facility: [facility] Start: 06-19-2024 End: 06-19-[address] Nati Olvera, Phy Office 3rd Flr Start: 06-19-2024 End: 06-19-2024 ambulatory Monika S Jolliff Facility:[facility] Start: 04-17-2024 End: 04-17-2024 ambulatory Monika S Jolliff Facility:[facility] Start: 03-14-2024 End: 03-14-2024 Office outpatient visit 25 minutes Nimo Bueno MD Work Phone: Department of Radiation Oncology at [facility] Comment on above: Cancer of cerebral m eninges (Primary Dx) Start: 03-14-2024 ambulatory MONIKA S JOLLIFF Facility: [facility] Start: 03-14-2024 End: 03-14-2024 Subsequent hospital visit by physician Nimo Bueno MD Work Phone: Imaging at [facility] Comment on above: Arrived Start: 03-14-2024 ambulatory MONIKA S JOLLIFF Facility: [facility] Start: 03-14-2024 End: 03-14-2024 Subsequent hospital visit by physician Nimo Bueno MD Work Phone: [facility] Comment on above: Arrived Start: 11-29-2023 End: 11-29-2023 Office outpatient visit 25 minutes Nimo Bueno MD Work Phone: Department of Radiation Oncology at [facility] Comment on above: Cancer of cerebral m eninges (Primary Dx); Neuroendocrine cancer Start: 11-29-2023 End: 11-29-2023 Subsequent hospital visit by physician Nimo Bueno MD Work Phone: Imaging at [facility] Comment on above: Arrived Start: 08-18-2023 End: 08-18-2023 Subsequent hospital visit by physician Kristine ABREU Work Phone: Imaging at [facility] Comment on above: Arrived Start: 07-22-[address] Monika hameed Work Phone: [facility] Work Phone: Start: 07-19-2023 End: 07-19-[address] Monika Venegas Work Phone: [facility] Work Phone: Start: 07-19-2023 End: 07-19-[address] Monika Venegas Work Phone: [facility] Work Phone: Start: 05-19-2023 End: 05-19-2023 Office outpatient visit 25 minutes Nimo Bueno MD Work Phone: Department of Radiation Oncology at [facility] Comment on above: Cancer of cerebral m eninges (Primary Dx) Start: 03-16-2023 End: 03-16-2023 Subsequent hospital visit by physician Tonia John Linac 1 Department of Radiation Oncology at [facility] Comment on above: Arrived Start: 03-15-2023 End: 03-28-2023 Patient encounter procedure Nimo Bueno MD Work Phone: Department of Radiation Oncology at [facility] Comment on above: Cancer of cerebral m eninges (Primary Dx) Start: 03-14-2023 End: 03-14-2023 Subsequent hospital visit by physician Tonia John Linac 1 Department of Radiation Oncology at [facility] Comment on above: Arrived Start: 03-10-2023 End: 03-10-2023 Subsequent hospital visit by physician Tonia John Linac 1 Department of Radiation Oncology at [facility] Comment on above: Arrived Start: 03-08-2023 End: 03-08-2023 Patient encounter procedure Nimo Bueno MD Work Phone: Department of Radiation Oncology at [facility] Comment on above: Neuroendocrine cance r (Primary Dx) Start: 03-04-2023 End: 03-04-2023 Subsequent hospital visit by physician Tonia John Linac 1 Department of Radiation Oncology at [facility] Comment on above: Arrived Start: 03-03-2023 End: 03-03-2023 Subsequent hospital visit by physician Tonia John Linac 1 Department of Radiation Oncology at [facility] Comment on above: Arrived Start: 03-02-2023 End: 03-02-2023 Subsequent hospital visit by physician Tonia John Linac 1 Department of Radiation Oncology at [facility] Comment on above: Arrived Start: 03-01-2023 End: 03-29-2023 Patient encounter procedure Nimo Bueno MD Work Phone: Department of Radiation Oncology at [facility] Comment on above: Cancer of cerebral m eninges (Primary Dx) Start: 03-01-2023 End: 03-01-2023 Subsequent [facility] John Linac 1 Department of Radiation Oncology at [facility] Comment on above: Arrived Start: 02-28-2023 End: 02-28-2023 Subsequent [facility] John Linac 1 Department of Radiation Oncology at [facility] Comment on above: Arrived Start: 02-24-2023 End: 02-24-2023 Subsequent hospital visit by physician Tonia John Linac 1 Department of Radiation Oncology at [facility] Comment on above: Arrived Start: 02-23-2023 End: 02-23-2023 Subsequent hospital visit by physician Tonia John Linac 1 Department of Radiation Oncology at [facility] Comment on above: Arrived Start: 02-18-2023 End: 02-18-2023 Subsequent hospital visit by physician Tonia John Linac 1 Department of Radiation Oncology at [facility] Comment on above: Arrived Start: 02-17-2023 End: 02-17-2023 Subsequent hospital visit by physician Tonia John Linac 1 Department of Radiation Oncology at [facility] Comment on above: Arrived Start: 02-16-2023 End: 02-16-2023 Subsequent hospital visit by physician Tonia John Linac 1 Department of Radiation Oncology at [facility] Comment on above: Arrived Start: 02-15-2023 End: 03-16-2023 Patient encounter procedure Nimo Bueno MD Work Phone: Department of Radiation Oncology at [facility] Comment on above: Cancer of cerebral m eninges (Primary Dx) Start: 02-15-2023 End: 02-15-2023 Subsequent hospital visit by physician Tonia John Linac 1 Department of Radiation Oncology at [facility] Comment on above: Arrived Start: 02-14-2023 End: 02-14-2023 [facility] 1 Department of Radiation Oncology at [facility] Comment on above: Arrived Start: 02-11-2023 End: 02-11-2023 Subsequent hospital visit by physician Tonia John Linac 1 Department of Radiation Oncology at [facility] Comment on above: Arrived Start: 02-10-2023 End: 02-10-2023 Subsequent hospital visit by physician Tonia John Linac 1 Department of Radiation Oncology at [facility] Comment on above: Arrived Start: 02-09-2023 End: 02-09-2023 [facility]ac 1 Department of Radiation Oncology at [facility] Comment on above: Arrived Start: 02-08-2023 End: 03-08-2023 Patient encounter procedure Nimo Bueno MD Work Phone: Department of Radiation Oncology at [facility] Comment on above: Cancer of cerebral m eninges (Primary Dx) Start: 02-08-2023 End: 02-08-2023 Subsequent hospital visit by physician Margret John Linac 1 Department of Radiation Oncology at [facility] Comment on above: Arrived Start: 02-04-2023 End: 02-04-2023 Subsequent hospital visit by physician Tonia John Linac 1 Department of Radiation Oncology at [facility] Comment on above: Arrived Start: 02-03-2023 End: 02-03-2023 Subsequent hospital visit by physician Tonia John Linac 1 Department of Radiation Oncology at [facility] Comment on above: Arrived Start: 02-02-2023 End: 02-02-2023 Subsequent hospital visit by physician Tonia John Linac 1 Department of Radiation Oncology at [facility] Comment on above: Arrived Start: 02-01-2023 End: 02-01-2023 Subsequent hospital visit by physician Nimo Bueno MD Work Phone: Department of Radiation Oncology at [facility] Comment on above: Arrived Start: 01-19-2023 [...] 01-18-[address] Monika Venegas Work Phone: [facility] Work Phone: Start: 01-18-2023 End: 01-18-[address] Monika Venegas Work Phone: [facility] Start: 01-13-2023 End: 01-13-[address] Monika Venegas Work Phone: [facility] Work Phone: Start: 01-12-2023 End: 01-12-2023 Subsequent hospital visit by physician Nimo Bueno MD Work Phone: [facility] Comment on above: Arrived Start: 01-12-2023 End: 01-12-2023 Subsequent hospital visit by physician Nimo Bueno MD Work Phone: Department of Radiology Comment on above: Arrived Start: 12-29-2022 Non-patient / Non-visit Dr. Joni Venegas Work Phone: [facility] Work Phone: Start: 12-27-2022 Non-patient / Non-visit Dr. Joni Venegas Work Phone: [facility] Work Phone: Start: 12-24-2022 Non-patient / Non-visit Dr. Joni Venegas Work Phone: [facility] Work Phone: Start: 12-23-2022 End: 12-24-2022 Evaluation and management of inpatient Dr. Monika Venegas Work Phone: [facility] Work Phone: Start: 12-23-2022 End: 12-23-2022 Non-patient / Non-visit Dr. Monika Venegas Work Phone: [facility] Work Phone: Start: 12-23-2022 Non-patient / Non-visit Dr. Joni Venegas Work Phone: [facility] Work Phone: Start: 12-21-2022 Non-patient / Non-visit Dr. Joni Venegas Work Phone: [facility] Work Phone: Start: 12-20-2022 Non-patient / Non-visit Dr. Joni Venegas Work Phone: [facility] Work Phone: Start: 12-17-2022 Non-patient / Non-visit Dr. Joni Venegas Work Phone: [facility] Work Phone: Start: 12-16-2022 Non-patient / Non-visit Dr. Joni Venegas Work Phone: [facility] Work Phone: Start: 12-13-2022 Non-patient / Non-visit Dr. Joni Venegas Work Phone: [facility] Work Phone: Start: 12-10-2022 Non-patient / Non-visit Dr. Joni Venegas Work Phone: [facility] Work Phone: Start: 12-08-2022 Non-patient / Non-visit Dr. Joni Venegas Work Phone: [facility] Work Phone: Start: 12-07-2022 Non-patient / Non-visit Dr. Joni Venegas Work Phone: [facility] Work Phone: Start: 12-06-2022 End: 01-01-2023 Evaluation and management of inpatient Dr. Monika Venegas Work Phone: [facility] Work Phone: Start: 11-09-2022 End: 11-09-[address] Monika Venegas Work Phone: [facility] Work Phone: Start: 11-09-2022 End: 11-09-[address] Monika Venegas Work Phone: [facility] Start: 10-29-2022 End: 10-29-[address] Monika Venegas Work Phone: [facility] Work Phone: Start: 10-29-2022 End: 10-29-[address] Monika Venegas Work Phone: [facility], [facility] Start: 10-09-2022 End: 10-09-2022 Subsequent hospital visit by physician Shaye Weston HYGIENE COORDINATOR-SUPERVISOR MACHINE SETTER Work Phone: Imaging Outpatient Care [facility] Comment on above: Arrived Start: 10-08-2022 End: 10-08-2022 Subsequent hospital visit by physician Qian Randle MD Work Phone: Imaging [facility] Comment on above: Arrived Start: 10-08-2022 End: 10-08-2022 Office consultation new/estab patient 60 min Qian Randle MD Work Phone: Pre-Procedure Evaluation and Assessment [facility] Outpatient [facility] Comment on above: Preop exam for inter nal medicine (Primary Dx); Skull mass; Essential hypertension; Hyperlipidemia, unspecified hyperlipidemia type Start: 10-08-2022 End: 10-08-2022 Patient encounter status Qian Randle MD Work Phone: Imaging [facility] Outpatient [facility] Start: 10-04-2022 End: 10-04-2022 Patient encounter procedure [facility] Outside Imaging Ct Scan So Outside Imaging Second Opinion Start: 09-30-2022 End: 09-30-2022 Subsequent hospital visit by physician Joanne Mitchell HYGIENE COORDINATOR-SUPERVISOR MACHINE SETTER Work Phone: Outside Imaging Start: 09-30-2022 End: 09-30-[address] Monika Venegas Work Phone: [facility] Work Phone: Start: 09-30-2022 End: 09-30-[address] Monika Venegas Work Phone: [facility] Start: 09-30-2022 End: 09-30-2022 Office outpatient new 45 minutes Ernie Kincaid MD Work Phone: Division of Neuro Surgery at [facility] Comment on above: Skull mass (Primary Dx) Start: 09-28-2022 End: 09-28-[address] Monika Venegas Work Phone: [facility] Start: 09-23-2022 End: 09-23-[address] Monika Venegas Work Phone: [facility] Work Phone: Start: 09-23-2022 End: 09-23-[address] Monika Venegas Work Phone: [facility] Start: 09-21-2022 End: 09-21-[address] Monika Venegas Work Phone: [facility] Work Phone: Start: 09-21-2022 End: 09-21-[address] Monika Venegas Work Phone: [facility] Start: 09-15-2022 End: 09-15-[address] Monika Venegas Work Phone: [facility] Start: 05-14-2022 End: 05-14-2022 ambulatory [facility] Work Phone: Start: 05-14-2022 End: 05-14-2022 Patient encounter procedure [facility] Start: 03-23-2022 End: 03-23-2022 ambulatory [facility] Work Phone: Start: 03-23-2022 End: 03-23-2022 Patient encounter procedure [facility] Procedures Date Procedure Procedure Detail Performing Clinician Start: 02-26-2025 Osmolality measureme nt, serum Dr. oMnika Venegas MD Work Phone: Start: 01-14-2025 Blood [...] Mean corpuscular hemoglobin concentration determination Dr. Monika eVnegas MD Work Phone: Start: 12-20-2024 Platelet mean [...] 11-12-2024 Creatinine blood Jeantahir Dorsey Marko [facility] Work Phone: Start: 11-11-2024 Creatinine blood Jeantahir Dorsey Marko [facility] Work Phone: Start: 11-10-2024 CARDIAC RHYTHM Other Ot her OT Start: 11-10-2024 End: 11-10-2024 Mri brain brain stem w/o w/contrast material Staci Luna MD Work Phone: Start: 11-10-2024 Creatinine blood Jeantahir Dorsey aMrko [facility] Work Phone: Start: 11-09-2024 GENERAL PROCEDURE Shasha Ferraro [facility] Work Phone: Start: 11-09-2024 Assay of magnesium Jl Nazario [facility] Work Phone: Start: 11-09-2024 Hepatic function panel Jl Nazario [facility] Work Phone: Start: 11-08-2024 IP CONSULT TO SPEECH THERAPY Jl ROMAN [facility] Work Phone: Start: 11-07-2024 Drug tst prsmv [...] M GO, IPB, CHM7, HFP #### [facility] ([facility]) [address] [place] [address] Start: 11-07-2024 ALCOHOL (ETHANOL),BLOOD Ignacio De La [...] MINT GREEN TOP TUBE Tra vis P Hamlin-Toppen MD, PhD Work Phone: Start: 11-07-2024 RAINBOW [...] 11-07-2024 Mean corpuscular hemoglobin concentration determination Dr. Monika Venegas MD Work Phone: Start: 11-07-[address] Joni Venegas MD Work Phone: Start: 11-07-2024 Nucleated red blood cell count procedure Dr. Monkia Venegas MD Work Phone: Start: 11-07-2024 Platelet [...] Ct thorax w/contrast material Joanne Nadeem Mitchell HYGIENE COORDINATOR-SUPERVISOR MACHINE SETTER Work Phone: Start: 09-30-2022 CT Abdomen and Pelvis V ictoria E Ranogg HYGIENE COORDINATOR-SUPERVISOR MACHINE SETTER Work Phone: Start: 09-30-2022 CT of chest [...] Detail Author Start: 11-07-2034 Tetanus vaccination TETANUS [facility] Start: 01-31-2025 End: 01-31-2025 Evaluation of diagnostic study results [facility] Start: 01-31-2025 [facility] Start: 12-20-2024 Vitamin B6 measurement [facility] Start: 12-20-2024 Blood ammonia measurement [facility] Start: 12-20-2024 Complete blood count [facility] Start: 12-20-2024 Comprehensive metabo lic 2000 panel - Serum or Plasma [facility] Start: 12-20-2024 Folic acid measureme nt, RBC [facility] Start: 12-20-2024 Magnesium measurement [facility] Start: 12-20-2024 Measurement of substance [facility] Start: 12-20-2024 Thiamine measurement [facility] Start: 12-20-2024 Thyroid stimulating hormone measurement [facility] Start: 12-20-2024 Vitamin B12 measurement [facility] Start: 12-20-2024 Vitamin D, 1,25-dihy droxy measurement [facility] Start: 12-20-2024 [facility] Start: 12-11-2024 End: 12-11-2024 Evaluation of diagnostic study results [facility] Start: 12-10-2024 Measurement of substance [facility] Start: 12-07-2024 Serum inorganic phos phate measurement [facility] Start: 12-06-2024 Patient discharge [facility] Start: 12-05-2024 Admission procedure [facility] Start: 12-05-2024 Referral to php magento developer [facility] Start: 12-04-2024 Verification routine [facility] Start: 12-03-2024 Following clinical p athway protocol [facility] Start: 12-03-2024 Assessment of risk o f venous thromboembolism [facility] Start: 12-03-2024 Insertion of cathete r into peripheral vein [facility] Start: 12-03-2024 Measuring intake and output [facility] Start: 12-03-2024 Oxygen therapy [facility] Start: 12-03-2024 Providing care accor ding to standard [facility] Start: 12-03-2024 Provision of activit y privileges [facility] Start: 12-03-2024 Referral for physica l therapy [facility] Start: 12-03-2024 Referral to occupati onal therapist [facility] Start: 12-03-2024 Referral to service [facility] Start: 12-03-2024 [facility] Start: 12-03-2024 Thyroid stimulating hormone measurement [facility] Start: 12-03-2024 Verification routine [facility] Start: 12-03-2024 Admission procedure [facility] Start: 12-03-2024 Hospital admission, emergency, from emergency room, medical nature [facility] Start: 12-03-2024 [facility] Start: 12-03-2024 Bacteria identified in Urine by Culture Urine Culture [facility] Start: 12-03-2024 Patient referral to dietitian [facility] Start: 11-29-2024 Consultation for treatment [facility] Start: 11-28-2024 Referral to php magento developer [facility] Start: 11-28-2024 End: 11-28-2024 Patient encounter procedure 11/28/2024 12:00 PM EDT Office Visit Department of Radiation Oncology at [facility] [address] [place] [phone] Nimo Bueno MD [address] [place] [address] Department of Radiation Oncology at [facility] Start: 11-28-2024 Patient discharge [facility] Start: 11-25-2024 [facility] Start: 11-23-2024 Referral to service [facility] Start: 11-14-2024 [facility] Start: 11-14-2024 End: 11-14-2024 Patient encounter procedure Imaging at [facility] Start: 11-13-2024 Application of intermittent pneumatic compression device [facility] Start: 11-13-2024 Recommendation to co ntinue with treatment [facility] Start: 11-13-2024 Speech therapy assessment [facility] Start: 11-12-2024 Recommendation to co ntinue with treatment [facility] Start: 11-12-2024 Admission procedure [facility] Start: 11-12-2024 Measuring intake and output [facility] Start: 11-12-2024 Patient referral to dietitian [facility] Start: 11-12-2024 Vital signs measurements [facility] Start: 11-12-2024 End: 11-12-2024 [facility] Start: 11-07-2024 [facility] Start: 11-07-2024 Oxygen therapy [facility] Start: 11-07-2024 End: 11-07-2024 [facility] Start: 09-27-2024 [facility] Start: 09-27-2024 [facility] Start: 07-11-2024 End: 07-11-2025 MR Brain W contrast IV [facility] Work Phone: Comment on above: 1 Occurrences starti ng 07/11/2024 until 07/11/2024 Expected: 07/11/2024 , Expires: 07/11/2025 Start: 07-11-2024 End: 07-11-2024 Patient encounter procedure Imaging at [facility] Start: 06-14-2024 End: 03-14-2025 MR Brain W contrast IV MRI BRAIN WITH PERFUSION Imaging Routine Cancer of cerebral meninges Expected: 06/14/2024, Expires: 03/14/2025 [facility] Comment on above: Expected: 06/14/2024 , Expires: 03/14/2025 Start: 03-14-2024 End: 03-14-2024 Patient encounter procedure Imaging at [facility] Start: 03-14-2024 End: 03-14-2024 Patient encounter procedure 03/14/2024 9:30 AM EDT Appointment Imaging [facility] [address] [place] [phone] Nimo Bueno MD [address] [place] [address] Imaging [facility] Start: 02-05-2024 Influenza vaccination [facility] Start: 12-07-2023 Potassium [Moles/vol ume] in Serum or Plasma POTASSIUM [facility] Start: 11-29-2023 End: 11-28-2024 MR Brain W contrast IV [facility] Comment on above: 1 Occurrences starti ng 11/29/2023 until 11/29/2023 Expected: 11/29/2023 , Expires: 11/28/2024 Start: 11-29-2023 End: 11-28-2024 PT Skull base to mid-thigh NUC PET NEUROENDOCRINE Imaging Routine Cancer of cerebral meninges Neuroendocrine cancer Expected: 11/29/2023, Expires: 11/28/2024 [facility] Comment on above: Expected: 11/29/2023 , Expires: 11/28/2024 Start: 11-29-2023 End: 11-29-2023 Patient encounter procedure Imaging at [facility] Start: 10-09-2023 Potassium [Moles/vol ume] in Serum or Plasma POTASSIUM [facility] Start: 08-23-2023 End: 08-23-2023 Telemedicine consultation with patient 08/23/2023 5:30 PM EDT Telemedicine Department of Radiation Oncology at [facility] [address] [place] [phone] Nimo Bueno MD [address] [place] [address] Department of Radiation Oncology at [facility] Start: 08-18-2023 End: 05-19-2024 MR Brain W contrast IV [facility] Comment on above: Expected: 08/18/2023 , Expires: 05/19/2024 1 Occurrences starti ng 08/18/2023 until 08/18/2023 Start: 08-18-2023 End: 08-18-2023 Patient encounter procedure Imaging at [facility] Start: 05-19-2023 End: 05-19-2023 Patient encounter procedure Department of Radiation Oncology at [facility] Start: 05-19-2023 End: 05-19-2023 Patient encounter procedure Imaging at [facility] Start: 05-14-2023 Screening for malign ant neoplasm of breast MAMMOGRAM SCREENING DISCUSSION [facility] Start: 03-15-2023 End: 03-15-2024 MR Brain W contrast IV MRI BRAIN WITH PERFUSION Imaging Routine Cancer of cerebral meninges Expected: 03/15/2023, Expires: 03/15/2024 [facility] Comment on above: Expected: 03/15/2023 , Expires: 03/15/2024 Start: 03-15-2023 End: 03-15-2023 Patient encounter procedure 03/15/2023 10:00 AM EDT Office Visit Department of Radiation Oncology at [place] [address] [address] [place] [phone] Nmio Bueno MD [address] [place], [place] [phone] Department of Radiation Oncology at [facility] Start: 03-08-2023 End: 03-08-2023 Patient encounter procedure Department of Radiation Oncology at [facility] Start: 03-01-2023 End: 03-01-2023 Patient encounter procedure 03/01/2023 10:00 AM EDT Office Visit Department of Radiation Oncology at [place] [address] [address] [place] [phone] Nimo Bueno MD [address] [place] [phone] Department of Radiation Oncology at [facility] Start: 02-22-2023 End: 02-22-2023 Patient encounter procedure 02/22/2023 10:20 AM EDT Office Visit Department of Radiation Oncology at [place] [address] [address] [place] [address] Nimo Bueno MD [address] [place] [phone] Department of Radiation Oncology at [facility] Start: 02-17-2023 Subsequent hospital visit by physician 02/17/2023 9:09 AM EDT Hospital Encounter Department of Radiation Oncology at [place] [address] [address] Arrived Department of Radiation Oncology at [facility] Comment on above: Arrived Start: 02-15-2023 End: 02-15-2023 Patient encounter procedure 02/15/2023 9:40 AM EDT Office Visit Department of Radiation Oncology at [place] [address] [address] [place] [address] Nimo Bueno MD [address] [place] [address] Department of Radiation Oncology at [facility] Start: 02-08-2023 End: 02-08-2023 Patient encounter procedure 02/08/2023 10:40 AM EDT Office Visit Department of Radiation Oncology at [place] [address] [address] [place] [address] Nimo Bueno MD [address] [place] [phone] Department of Radiation Oncology at [facility] Start: 02-04-2023 Influenza vaccination INFLUENZA VACC INE (#1) [facility] Start: 02-01-2023 End: 02-01-2023 Patient encounter procedure 02/01/2023 1:00 PM EDT Office Visit Department of Radiation Oncology at [place] [address] [address] [place] [address] Nimo Bueno MD [address] [place] [phone] Department of Radiation Oncology at [facility] Start: 01-19-2023 End: 01-19-2023 Patient encounter procedure Department of Radiation Oncology Start: 01-02-2023 Patient discharge [facility] Start: 01-01-2023 [facility] Start: 12-31-2022 [facility] Start: 12-29-2022 End: 12-30-2022 [facility] Start: 12-29-2022 [facility] Start: 12-27-2022 Referral to service [facility] Start: 12-24-2022 Patient discharge [facility] Start: 12-24-2022 Care planning and pr oblem solving actions [facility] Start: 12-24-2022 Chart related administrative procedure [facility] Start: 12-23-2022 End: 12-24-2022 [facility] Start: 12-23-2022 Care planning and pr oblem solving actions [facility] Start: 12-23-2022 Cardiac monitoring [facility] Start: 12-23-2022 Admission procedure [facility] Start: 12-23-2022 Provision of activit y privileges [facility] Start: 12-23-2022 Assessment of risk o f venous thromboembolism [facility] Start: 12-23-2022 Insertion of cathete r into peripheral vein [facility] Start: 12-23-2022 Measuring intake and output [facility] Start: 12-23-2022 Providing care accor ding to standard [facility] Start: 12-23-2022 Referral to leakage tester [facility] Start: 12-23-2022 Referral to occupati onal therapist [facility] Start: 12-23-2022 Referral to service [facility] Start: 12-23-2022 Following clinical p athway protocol [facility] Start: 12-23-2022 Patient discharge [facility] Start: 12-23-2022 Patient referral to dietitian [facility] Start: 12-22-2022 [facility] Start: 12-16-2022 [facility] Start: 12-10-2022 Following clinical p athway protocol [facility] Start: 12-09-2022 Application of elast ic bandage [facility] Start: 12-06-2022 Application of intermittent pneumatic compression device [facility] Start: 12-06-2022 [facility] Start: 12-06-2022 Recommendation to co ntinue with treatment [facility] Start: 12-06-2022 Urinary bladder training [facility] Start: 12-06-2022 Wound care [facility] Start: 12-06-2022 Referral to service [facility] Start: 12-06-2022 Admission procedure [facility] Start: 12-06-2022 Patient referral to dietitian [facility] Start: 12-06-2022 Referral to occupati onal therapist [facility] Start: 12-06-2022 Vital signs measurements [facility] Start: 12-06-2022 [facility] Start: 12-06-2022 Speech therapy assessment [facility] Start: 10-28-2022 End: 10-28-2022 Patient encounter procedure 10/28/2022 Office Visit Neurosurgery Neuro Oncology Shaye Weston, HYGIENE COORDINATOR-SUPERVISOR MACHINE SETTER [address] [place] [address] Division of Neuro Surgery at [facility] Start: 10-13-2022 End: 10-13-2022 Craniectomy w/excision [...] Encounter Magnetic Resonance Imaging Shaye Weston Staci HYGIENE COORDINATOR-SUPERVISOR MACHINE SETTER [address] [place] [address] Imaging Outpatient Care [facility] Start: 10-07-2022 End: 10-07-2022 Telemedicine consultation with patient 10/07/2022 Telemedicine Neurosurgery Neuro Oncology Ernie Kincaid MD [address] [place] [address] Division of Neuro Surgery at [facility] Start: 09-30-2022 End: 10-01-2023 CT Abdomen and Pelvis W contrast IV CT ABDOMEN/PELVIS WITH CONTRAST Imaging STAT Skull mass Expected: 09/30/2022, Expires: 10/01/2023 [facility] Comment on above: Expected: 09/30/2022 , Expires: 10/01/2023 Start: 09-30-2022 End: 10-01-2023 CT Chest W contrast IV CT CHEST WITH CONTRAST Imaging STAT Skull mass Expected: 09/30/2022, Expires: 10/01/2023 [facility] Comment on above: Expected: 09/30/2022 , Expires: 10/01/2023 Start: 07-24-2022 COVID-19 VACCINE (2 - Moderna series) COVID-19 VACCINE (2 - Moderna series) [facility] Start: 04-20-2022 COVID-19 VACCINE (2 - Moderna risk series) COVID-19 VACCINE (2 - Moderna risk series) [facility] Start: 11-19-2018 RSV VACCINE (1 - 1-d ose 75+ series) RSV VACCINE (1 - 1-dose 75+ series) [facility] Start: 11-19-2008 Pneumococcal vaccination PNEUM OCOCCAL VACCINE SERIES (1 - PCV) [facility] Start: 2003 RSV VACCINE (1 - 1-d ose 60+ series) RSV VACCINE (1 - 1-dose 60+ series) [facility] Start: 11-19-1993 Zoster vaccine hzv l henrietta for subcutaneous use ZOSTER (SHINGLES) VACCINE (1 of 2) [facility] Start: 11-19-1988 Screening for malign ant neoplasm of colon COLORECTAL CANCER SCREENING DISCUSSION [facility] Start: 11-19-1964 Screening for malign ant neoplasm of cervix CERVICAL CANCER SCREENING DISCUSSION [facility] Start: 11-19-1962 Pneumococcal vaccination PNEUM OCOCCAL VACCINE SERIES (1 of 2 - PCV) [facility] Start: 11-19-1962 Third diphtheria, te tanus and acellular pertussis (DTaP) vaccination TDAP (ADULT) [facility] Start: 11-19-1962 Zoster vaccine hzv l henrietta for subcutaneous use ZOSTER (SHINGLES) VACCINE (1 of 2) [facility] Start: 11-19-1949 Pneumococcal vaccination [facility] Start: 05-21-1944 COVID-19 VACCINE (#1) COVID-19 VACCI NE (#1) [facility] Start: 1945 Hepatitis C screening HEPATITI S C VIRUS SCREENING [facility] Start: 1945 Potassium [Moles/vol ume] in Serum or Plasma POTASSIUM [facility] Start: 1945 Screening for osteoporosis DEXA SCAN DISCUSSION [facility] Start: 1945 Tetanus vaccination TETANUS [facility] Alanine aminotransfe rase [Enzymatic activity/volume] in Serum or Plasma [facility] Albumin [Mass/volume ] in Serum or Plasma [facility] Alkaline phosphatase [Enzymatic activity/volume] in Serum or Plasma [facility] Anion gap in Serum o r Plasma [facility] Basic metabolic 2008 panel with ionized calcium - Serum or Plasma [facility] Bilirubin, total measurement [facility] BUN/Creatinine ratio [facility] Calcium [Mass/volume ] in Serum or Plasma [facility] Carbon dioxide, tota l [Moles/volume] in Central venous blood [facility] Cranioplasty skull d efect 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 Skull mass [facility] Cranioplasty skull d efect 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 Skull mass [facility] Creatinine [Mass/vol ume] in Serum or Plasma [facility] Ecg routine ecg w/le ast 12 lds w/i&r MS ELECTROCARDIOGRAM, COMPLETE MS - OFFICE PERFORMED Routine Preop exam for internal medicine Skull mass Essential hypertension Hyperlipidemia, unspecified hyperlipidemia type Ordered: 10/08/2022 [facility] Comment on above: Ordered: 10/08/2022 End: 11-07-2024 ED US FAST ED US FAST Imaging STAT One Time for 1 Occurrences starting 11/07/2024 until 11/07/2024 [facility] Comment on above: One Time for 1 Occur rences starting 11/07/2024 until 11/07/2024 Erythrocyte mean corpuscular volume determination [facility] Erythrocyte mean corpuscular volume determination [facility] Folate [Moles/volume ] in Serum or Plasma [facility] Fth/gft free w/direc t closure s/a/l 20 cm/< GRAFT SKIN FULL THICKNESS SCALP (FTSG) Skull mass [facility] Fth/gft free w/direc t closure s/a/l 20 cm/< GRAFT SKIN FULL THICKNESS SCALP (FTSG) Skull mass [facility] Glucose [Mass/volume ] in Serum or Plasma [facility] Hematocrit [Volume Fraction] of Blood [facility] Hematocrit [Volume Fraction] of Blood [facility] Hemoglobin [Mass/vol ume] in Blood [facility] Hemoglobin [Mass/vol ume] in Blood [facility] Hemoglobin A1c/Hemoglobin.total in Blood [facility] Hepatic function panel [facility] Hepatic function panel [facility] Socastee/lambda light c viviana ratio [facility] Lambda light chains. free [Mass/volume] in Serum or Plasma [facility] Leukocytes [#/volume ] in Blood [facility] Leukocytes [#/volume ] in Blood [facility] Magnesium measurement [facility] Mean corpuscular hemoglobin concentration determination [facility] Mean corpuscular hemoglobin concentration determination [facility] Mean corpuscular hemoglobin determination [facility] Mean corpuscular hemoglobin determination [facility] Measurement of renal function [facility] End: 10-09-2022 MR Brain [facility] Work Phone: Comment on above: 1 Occurrences starti ng 10/09/2022 until 10/09/2022 End: 01-12-2023 MR Brain W contrast IV [facility] Comment on above: 1 Occurrences starti ng 01/12/2023 until 01/12/2023 End: 03-14-2024 MR Brain W contrast IV [facility] Comment on above: 1 Occurrences starti ng 03/14/2024 until 03/14/2024 [facility] myoq/fscq flap head&neck w/named vasc pedcl FLAP MUSCLE/MYOCUTANEOUS/FAS CIOCUTANEOUS HEAD OR NECK Skull mass [facility] myoq/fscq flap head&neck w/named vasc pedcl FLAP MUSCLE/MYOCUTANEOUS/FAS CIOCUTANEOUS HEAD OR NECK Skull mass [facility] Neutrophil count [facility] Neutrophil percent differential count [facility] Patient Education [facility] Work Phone: Patient referral [facility] Work Phone: Platelets [#/volume] in Blood [facility] Platelets [#/volume] in Blood [facility] Potassium measurement [facility] End: 01-12-2023 PT Skull base to mid-thigh [facility] Comment on above: 1 Occurrences starti ng 01/12/2023 until 01/12/2023 RAD ONC SIMULATION RAD ONC SIMUL ATION Imaging Routine Neuroendocrine cancer Cancer of cerebral meninges 01/19/2023 2:34 PM EDT [facility] Red blood cell count [facility] Red blood cell count [facility] Red cell distributio n width determination [facility] Red cell distributio n width determination [facility] Serum chloride measurement [facility] Sodium measurement [facility] End: 11-07-2024 Standard ECG ECG ECG STAT One Time for 1 Occurrences starting 11/07/2024 until 11/07/2024 [facility] Comment on above: One Time for 1 Occur rences starting 11/07/2024 until 11/07/2024 Total protein measurement [facility] Troponin T.cardiac [Mass/volume] in Serum or Plasma by High sensitivity method [facility] Urea nitrogen [Mass/volume] in Serum or Plasma [facility] Urine culture [facility] Urine kappa light ch ain measurement [facility] US Carotid arteries [facility] End: 11-07-2024 VITAMIN D (25-HYDROXY,TOTAL) VITAMIN D (25-HYDROXY,TOTAL) Lab Routine One Time for 1 Occurrences starting 11/07/2024 until 11/07/2024 [facility] Comment on above: One Time for 1 Occur rences starting 11/07/2024 until 11/07/2024 Immunizations Immunization Date Immunization Notes Care Provider Fa leydaty 11-07-2024 tetanus and diphther ia toxoids, adsorbed, preservative free, for adult use (5 Lf of tetanus toxoid and 2 Lf of diphtheria toxoid) Ignacio De La Garza Sr., MD, PhD Work Phone: [facility] 03-23-2022 influenza virus vaccine, unspecified formulation Nimo Bueno MD Work Phone: [facility] 04-06-2020 Influenza virus vaccine [facility] 04-06-2020 Dr. Monika Venegas MD Work Phone: [facility] Payers Date Payer Category Payer Self-pay [id number] 2022 Medicare [id number] 2019 Managed Care (unspecified) MEDICARE SUPPLEMENT [id number] 2019 Unknown GENERIC PAYOR ME DICARE SUPPLEMENT [id number] 2019-Present [phone] [place] [id number]. [id number] 2019 Unknown [id number] 2008 Medicare [id number] 1945 Unknown [id number] 2..840.1.395205.3.579. 2.594 1943 Unknown [id number] 2.16.840.1.446402.3.579. 2.594 1943 Unknown [id number] 2..840.1.759431.3.579. 2.594 1943 Unknown [id number] 2.840.1.730315.3.579. 2.594 1943 Unknown [id number] 2.840.1.279739.3.579. 2.594 1943 Unknown [id number] 2.840.1.070402.3.579. 2.594 1943 Unknown [id number] 2.840.1.968769.3.579. 2.594 Medicare MEDICARE O OTHER [id number] Private Health Insurance [facility] [id number] Unknown [id number] 2.840.1.299152.3.579. 2.462 Unknown [id number] 2.0.1.536100.3.579. 2.462 Unknown [id number] 2.840.1.751923.3.579. 2.462 Unknown [id number] 2.840.1.284751.3.579. 2.462 Unknown [id number] 2.840.1.836308.3.579. 2.462 Unknown [id number] 2.840.1.773139.3.579. 2.462 Unknown [id number] 2.840.1.107790.3.579. 2.462 Unknown [id number] .840.1.928897.3.579. 2.462 Unknown [id number] 2.840.1.820826.3.579. 2.462 Unknown [id number] 2.840.1.529157.3.579. 2.462 Unknown [id number] 2.840.1.084406.3.579. 2.462 Unknown [id number] 2.16.840.1.680230.3.579. 2.462 Unknown [id number] 2.16.840.1.503404.3.579. 2.462 Unknown [id number] 2.16.840.1.820685.3.579. 2.462 Unknown [id number] 2.16.840.1.694476.3.579. 2.462 Unknown [id number] 2.16840.1.072785.3.579. 2.462 Unknown [id number] 2.16840.1.278042.3.579. 2.462 Unknown [id number] 2.840.1.922680.3.579. 2.462 Unknown [id number] 2.840.1.714085.3.579. 2.462 Unknown [id number] 2.840.1.587540.3.579. 2.462 Unknown [id number] 2.840.1.292627.3.579. 2.462 Unknown [id number] 2.840.1.948132.3.579. 2.462 Unknown [id number] 2.840.1.822822.3.579. 2.462 Unknown [id number] 2.840.1.207920.3.579. 2.462 Unknown [id number] 2.840.1.678425.3.579. 2.462 Unknown [id number] 2.840.1.578628.3.579. 2.462 Unknown [id number] 2.16840.1.587733.3.579. 2.462 Unknown [id number] 2.16840.1.909189.3.579. 2.462 Unknown [id number] 2.16840.1.597686.3.579. 2.462 Unknown [id number] 2.840.1.403702.3.579. 2.462 Unknown [id number] 2.16.840.1.519285.3.579. 2.462 Unknown [id number] 2.16.840.1.122816.3.579. 2.462 Unknown [id number] 2.16.840.1.158086.3.579. 2.462 Unknown [id number] 2.16.840.1.444273.3.579. 2.462 Unknown [id number] 2.16.840.1.482246.3.579. 2.462 Unknown [id number] 2.16.840.1.330037.3.579. 2.462 Unknown [id number] 2.16.840.1.272869.3.579. 2.462 Unknown [id number] 2.16.840.1.847400.3.579. 2.462 Unknown [id number] 2.840.1.272647.3.579. 2.462 Unknown [id number] 2.840.1.533299.3.579. 2.462 Social History Date Type Detail Facility Start: 07-31-2021 End: 07-19-2023 Tobacco smoking status NHIS Unknown if ever smoked [facility] Start: 08-28-2020 Alone [facility] Start: 08-14-2020 Non-smoker [facility] Start: 1945 Sex Assigned At Female [facility] Start: 1945 Sex Assigned At Not on file [facility] Start: 10-04-2022 End: 12-03-2024 Tobacco smoking status NHIS Never smoked tobacco [facility] Start: 10-04-2022 Tobacco use and exposure Smokeless tobacco non-user [facility] Start: 10-04-2022 End: 10-08-2022 Alcohol intake Current drinker of alcohol (finding) [facility] Start: 10-04-2022 Alcohol Comment socially once a year [facility] Start: 01-12-2023 End: 11-04-2024 Alcohol intake Ex-drinker (finding) [facility] Start: 11-18-2022 End: 07-11-2024 History of Social function [facility] Start: 11-18-2022 End: 07-11-2024 Alcohol Use Disorder Identification Test - Consumption [AUDIT-C] [facility] How often to you hav e a drink containing alcohol? Monthly or less [facility] How many standard dr inks containing alcohol do you have on a typical day? 1 or 2 [facility] How often do you hav e 6 or more drinks on 1 occasion? Never [facility] (I/) worried mark anthony er (my/our) food would run out before (I/we) got money to buy more. Never true [facility] In the past 12 month s, has lack of transportation kept you from medical appointments or from getting medications? No [facility] In the past 12 month s, was there a time when you were not able to pay the mortgage or rent on time? No [facility] Start: 11-09-2022 End: 11-19-2022 Exposure to SARS-CoV-2 (event) Not sure [facility] Start: 07-08-2024 Gender identity Identifies as female gender (finding) [facility] Start: 07-08-2024 Sexual orientation Heterosexual (finding) [facility] Start: 09-27-2022 End: 09-27-2024 Sex Female (finding) [facility] Medical Equipment Procedure Code Equipment Code Equipment Original Text Equipment Identifier Dates Sealant Dural Ad herus Autospray Et - [id number] Start: 11-16-2022 Screw Bone 5mm 1 .8mm Emergency Craniofacial Level One - [id number] Start: 11-24-2022 Clearfit Cranial Implant [id number] Start: 11-25-2022 Clearfit Cranial Implant [id number] Start: 11-16-2022 Patch Dural 3x3i n Durepair Substitute - [id number] Start: 11-16-2022 Screw Bone 5mm 1 .8mm Emergency Craniomaxillofacial Level One - [id number] Start: 11-24-2022 Patch Dural 7x5i n Thk3.5mm Craniomaxillofacial - [id number] Start: 11-24-2022 Mesh Titanium 3m m Regular Cranial Screen Panel 55-323-14-09 - [id number] Start: 11-24-2022 Plate Bone .6mm Curve Craniomaxillofacial 5x2 Hole Low - [id number] Start: 11-24-2022 Plate Bn .6mm Cr nmxf 3x2 Hl Lwpr Crv Seg Ti Nst - [id number] Start: 11-24-2022 Cover [place] Craniofacial .3mm 15mm Ultra Low Profile - [id number] Start: 11-24-2022 Screw Bone 5mm 1 .5mm Craniomaxillofacial Level One - [id number] Start: 11-24-2022 Screw Bone Drill Free Craniomaxillofacial Titanium Level One - [id number] Start: 11-25-2022 Cover Bur Hl Crn mxf .4mm 17mm Matrixneuro Ti Nst Eddie - [id number] Start: 11-24-2022 Cover Bur Hl Crn mxf .4mm 17mm Matrixneuro Ti Nst Eddie - [id number] Start: 11-16-2022 Screw 1.5x4mm 04.503.104.01 - [id number] Start: 11-24-2022 Screw 1.5x4mm 04.503.104.01 - [id number] Start: 11-16-2022 Cover Bur Hl Crn mxf .4mm 15mm Matrixneuro Ti Nst Eddie - [id number] Start: 11-24-2022 Cover Bur Hl Crn mxf .4mm 15mm Matrixneuro Ti Nst Eddie - [id number] Start: 11-16-2022 Cover [place] Hole Craniomaxillofacial .4mm 24mm Matrixneuro - [id number] Start: 11-24-2022 Cover [place] Craniomaxillofacial .4mm 24mm Matrixneuro - [id number] Start: 11-16-2022 Mesh Matrixneuro [id number].6mm Titanium Cranial Rigid - [id number] Start: 11-24-2022 Mesh Matrixneuro 897h830f.6mm Titanium Cranial Rigid - [id number] Start: 11-16-2022 Goals Date Patient Goal Desired Activity /State Functional Status Date Assessment Result Facility 12-06-2024 Functional status Ambulates [facility] Work Phone: 11-29-2024 Functional status With Assist of 1 [facility] Work Phone: 11-27-2024 Functional status Ambulates [facility] Work Phone: 11-08-2024 Are you deaf, or do you have serious difficulty hearing Yes 11/08/2024 4:11 PM Shelby Montano RN Yes [facility] 11-08-2024 Are you blind, or do you have serious difficulty seeing, even when wearing glasses No 11/08/2024 4:11 PM Shelby Montano RN No [facility] 11-08-2024 Do you have serious difficulty walking or climbing stairs Yes 11/08/2024 4:11 PM Shelby Montano, MICAH Yes [facility] 11-08-2024 Do you have difficul ty dressing or bathing No 11/08/2024 4:11 PM Shelby Montano, MICAH No [facility] 11-08-2024 Because of a physica l, mental, or emotional condition, do you have difficulty doing errands alone such as visiting a physician's office or shopping No 11/08/2024 4:11 PM Shelby Montano RN No [facility] 01-06-2023 Are you deaf, or do you have serious difficulty hearing Yes 01/06/2023 9:52 AM Hansa Patiño, MICAH Yes [facility] 01-06-2023 Are you blind, or do you have serious difficulty seeing, even when wearing glasses No 01/06/2023 9:52 AM Hansa Patiño, MICAH No [facility] 01-06-2023 Do you have serious difficulty walking or climbing stairs Yes 01/06/2023 9:52 AM Hansa Patiño, RN Yes [facility] 01-06-2023 Do you have difficul ty dressing or bathing No 01/06/2023 9:52 AM Hansa Patiño, MICAH No [facility] 01-06-2023 Because of a physica l, mental, or emotional condition, do you have difficulty doing errands alone such as visiting a physician's office or shopping No 01/06/2023 9:52 AM Hansa Patiño, MICAH No [facility] 01-01-2023 Functional status Activity Abili ty Standby Assist [facility] Work Phone: 12-31-2022 Functional status Chair [facility] Work Phone: 12-24-2022 Functional status Ambulates [facility] Work Phone: 12-23-2022 Functional status Ambulates [facility] Work Phone: Mental Status Date Assessment Result Facility 12-06-2024 Cognitive function Voice/Name [facility] Work Phone: 12-03-2024 Cognitive function Voice/Name [facility] Work Phone: 11-29-2024 Cognitive function Voice/Name [facility] Work Phone: 11-08-2024 Because of a physica l, mental, or emotional condition, do you have serious difficulty concentrating, remembering, or making decisions No 11/08/2024 4:11 PM Shelby Montano, MICAH No [facility] 11-07-2024 Cognitive function Voice/Name [facility] Work Phone: 09-27-2024 Cognitive function Awake;Alert;A ppropriate; Follows Commands [facility] Work Phone: 01-06-2023 Because of a physica l, mental, or emotional condition, do you have serious difficulty concentrating, remembering, or making decisions No 01/06/2023 9:52 AM Hansa Patiño, RN No [facility] 01-01-2023 Cognitive function Voice/Name [facility] Work Phone: 12-24-2022 Cognitive function Voice/Name [facility] Work Phone: 12-23-2022 Cognitive function Voice/Name [facility] Work Phone: Clinical Notes 09-30-2022 to 12-06-2024 Note Date & Type Note Facility 12-06-2024 Discharge summary Note Date/Time December 06, 2024 3:28p m [facility] Medical Records Department [address] [place] [address] Transfer to [facility] MR#: [id number] Acct: [id number] Name: SARAH MCGUIRE Rep #:[id number] : 1945 79 From: Alix Hudson DO PCP: Dr. Monika Venegas MD Status:ADM IN Certification of patient admission REQUIRED AT TIME OF ADMISSION. I CERTIFY THAT POST-HOSPITAL ECF SERVICES ARE REQUIRED TO BE GIVEN ON AN IN-PATIENT BASIS BECAUSE OF THE ABOVE NAMED PATIENT'S NEED FOR CUSTODIAL CARE ON A CONTINUING BASIS FOR THE CONDITION(S) FOR WHICH HE/SHE WAS RECEIVINGIN-PATIENT HOSPITAL SERVICES PRIOR TO HIS/HER TRANSFER TO THE [facility]. 12/06/24 1528<Electronically signed by Alix Hudson DO> [...] Physician in: 1 week after discharge from correction facility Please Follow Up With: Gagan Schulte [...] in before D/C Order can be placed): Detention Facility 12/06/24 1528 <Electronically signed by Alix Hudson DO> Cosigner Signature (if applicable): CC: Dr. Monika Venegas MD; Dr. Darnell Gonzalez DO; Dr. Gagan Schulte MD ~ [facility] Work Phone: 1(822) 270-277907-03-2025 Discharge summary Author Alix [facility] Note Date/Time December 06, 2024 3:14p m [facility] Medical Records Department [address] [place] [address] Discharge Summary 12/06/24 3245 MR#: [id number] Acct: [id number] Name: SARAH MCGUIRE Rep #:[id number] : 1945 79 From: Alix Hudson DO PCP: Dr. Monika Venegas MD Status:ADM IN [facility] Prov[facility] Date of Admission: 12/05/24 Date of [...] female who presented to the emergency department [facility] on 12/03/2024 with generalized weakness. She [...] in before D/C Order can be placed): Detention Facility Charges/Coding Visit Charges Inpatient E&M: 95399 SNF Disch >30 Min 12/06/24 1514 <Electronically signed by Alix Hudson DO> Cosigner Signature (if applicable): CC: Dr. Monika Venegas MD; Dr. Gagan Schulte MD; Dr. Alix Hudson DO~ Signed [facility] Work Phone: 1(818) 843-359707-03-2025 Discharge summary [facility] Medical Records Department [address] [place] [address] Transfer to [facility] MR#: [id number] Acct: [id number] Name: SARAH MCGUIRE Rep #:[id number] : 1945 79 From: Alix Hudson DO PCP: Dr. Monika Venegas MD Status:ADM IN Certification of patient admission REQUIRED AT TIME OF ADMISSION. I CERTIFY THAT POST-HOSPITAL ECF SERVICES ARE REQUIRED TO BE GIVEN ON AN IN-PATIENT BASIS BECAUSE OF THE ABOVE NAMED PATIENT'S NEED FOR CUSTODIAL CARE ON A CONTINUING BASIS FOR THE CONDITION(S) FOR WHICH HE/SHE WAS RECEIVINGIN-PATIENT HOSPITAL SERVICES PRIOR TO HIS/HER TRANSFER TO THE [facility]. 12/06/24 1528 Diet Diet Order/Speech Therapy: INPATIENT [...] Physician in: 1 week after discharge from correction facility Please Follow Up With: Gagan Schulte [...] in before D/C Order can be placed): Detention Facility 12/06/24 1528 Cosigner Signature (if applicable): CC: Dr. Monika Venegas MD; Dr. Darnell Gonzalez DO; Dr. Gagan Schulte MD ~ [facility]07-03-2025 Discharge summary [facility] Medical Records Department [address] [place] [address] Discharge Summary 12/06/24 1455 MR#: [id number] Acct: [id number] Name: SARAH MCGUIRE Rep #:[id number] : 1945 79 From: Alix Hudson DO PCP: Dr. Monika Venegas MD Status:ADM IN [facility] Providers Date of Admission: 12/05/24 Date of [...] tablet 2.5 mg PO BID called to [facility] tabs 08/13/24 acetaminophen 325 mg [...] female who presented to the emergency department [facility] on 12/03/2024 with generalized weakness. She [...] in before D/C Order can be placed): Detention Facility Charges/Coding Visit Charges Inpatient E&M: 06653 SNF Disch >30 Min 12/06/24 9634 Cosigner Signature (if applicable): CC: Dr. Monika Venegas MD; Dr. Gagan Schulte MD; Dr. Alix Hudson, DO~ Signed [facility]07-03-2025 [facility]07-03-2025 Hospital Discharge instructionsAdditional Instructions Date of Discharge: 12/06/24[facility] Work Phone: 1(357) 294-436707-02-2025 Consult note Author Gagan Schulte [facility] Note Date/Time December 05, 2024 3:39p m [facility] Medical Records Department [address] [place] [address] Consultation - Nephrology 12/05/24 1534 MR#: [id number] Acct: [id number] Name: SARAH MCGUIRE Rep #:[id number] : 1945 79 From: Gagan astorga MD PCP: Dr. Monika Venegas MD Status:ADM TED Location: [facility] DE553-3 Assessment & Plan Assessment/Plan (1) Hyponatremia: PLAN: [...] the rehab unit. Was recently admitted at [facility] with subdural fluid collection, subsequently was transferred [...] Denies any breathing complaints. No urinary complaints. [facility] [facility] Medical History (Updated 12/05/24 @ 15:37 by [...] Venegas MD; Dr. Darnell Gonzalez DO~ Signed [facility] Work Phone: 1(989) 747-739507-02-2025 Progress note Author Alix Hudson [facility] Note Date/Time December 05, 2024 1:53p [facility] Medical Records Department [address] [place] [address] Progress Note - Hospitalist 12/05/24 0834 MR#: [id number] Acct: [id number] Name: SARAH MCGUIRE Rep #:[id number] : 1945 79 From: Alix Hudson DO PCP: Dr. Monika Venegas MD Status:ADM TED Location: MS3 KO906-9 Reason for Visit Reason for Visit: Generalized [...] point Recent subdural hematoma - Transferred to [facility] agree with [facility] for apixaban reversal - MRI at [facility] [...] remains stable Charges/Coding Visit Charges Inpatient E&M: 55219 Subs Hosp L2 NIHSS NIHSS Nursing Documentation [...] Cosigner Signature (if applicable): CC: ~ Signed [facility] Work Phone: 1(101) 332-888007-02-2025 Consult note [facility] Medical Records Department [address] [place] [address] Consultation - Nephrology 12/05/24 1534 MR#: [id number] Acct: [id number] Name: SARAH MCGUIRE Rep #:[id number] : 1945 79 From: Gagan astorga MD PCP: Dr. Monika Venegas MD Status:ADM TED Location: MS3 MJ512-5 Assessment & Plan Assessment/Plan (1) Hyponatremia: PLAN: [...] the rehab unit. Was recently admitted at [facility] with subdural fluid collection, subsequently was transferred [...] Denies any breathing complaints. No urinary complaints. [facility] Medical History (Updated 12/05/24 @ 15:37 by [...] Venegas MD; Dr. Darnell Gonzalez DO~ Signed [facility]07-02-2025 Progress note [facility] Medical Records Department [address] [place] [address] Progress Note - Hospitalist 12/05/24 0834 MR#: [id number] Acct: [id number] Name: SARAH MCGUIRE Rep #:[id number] : 1945 79 From: Alix Hudson DO PCP: Dr. Monika Venegas MD Status:ADM TED Location: MS3 YH738-0 Reason for Visit Reason for Visit: Generalized [...] Transferred to [facility] agree with [facility] for apixaban reversal - [facility] at [facility] [...] remains stable Charges/Coding Visit Charges Inpatient E&M: 14524 Subs Hosp L2 NIHSS NIHSS Nursing Documentation [...] Cosigner Signature (if applicable): CC: ~ Signed [facility]07-01-2025 Progress note Author Alix Hudson [facility] Note Date/Time December 04, 2024 3:25p [facility] Medical Records Department [address] [place] [address] Progress Note - Hospitalist 12/04/24 0817 MR#: [id number] Acct: [id number] Name: SARAH MCGUIRE Rep #:[id number] : 1945 79 From: Alix Hudson DO PCP: Dr. Monika Venegas MD Status:ADM TED Location: MS3 GL232-4 Reason for Visit Reason for Visit: Weakness/falls [...] 80.3 H, Lymph % (Auto) 9.0 L, Montague % (Auto) 9.6, Eos % (Auto) 0.1, [...] Clarity Clear, Urine pH 7.0, Ur Specific Girard 1.010, Urine Protein 15 H, Urine Glucose [...] 84.4 H, Lymph % (Auto) 6.8 L, Montague % (Auto) 7.5, Eos % (Auto) 0.4, [...] days Recent subdural hematoma - Transferred to [facility] agree with [facility] for apixaban reversal - [facility] [...] by rehab Charges/Coding Visit Charges Inpatient E&M: 52244 Subs Hosp L2 NIHSS NIHSS Nursing Documentation [...] Cosigner Signature (if applicable): CC: ~ Signed [facility] Work Phone: 1(187) 308-933307-01-2025 Progress note [facility] Medical Records Department [address] [place] [address] Progress Note - Hospitalist 12/04/24 0817 MR#: [id number] Acct: [id number] Name: SARAH MCGUIRE Rep #:[id number] : 1945 79 From: Alix Hudson DO PCP: Dr. Monika Venegas MD Status:ADM TED Location: MS3 BN239-4 Reason for Visit Reason for Visit: Weakness/falls [...] 80.3 H, Lymph % (Auto) 9.0 L, Montague % (Auto) 9.6, Eos % (Auto) 0.1, [...] Clarity Clear, Urine pH 7.0, Ur Specific Girard 1.010, Urine Protein 15 H, Urine Glucose [...] 84.4 H, Lymph % (Auto) 6.8 L, Montague % (Auto) 7.5, Eos % (Auto) 0.4, [...] [facility]red [facility] with [facility] for [facility]ixaban reversal - [facility] [...] by rehab Charges/Coding Visit Charges Inpatient E&M: 94984 Subs Hosp L2 NIHSS NIHSS Nursing Documentation [...] Cosigner Signature (if applicable): CC: ~ Signed [facility]07-01-2025 History and physical note Author Darnell Vera [facility] Note Date/Time December 04, 2024 5:43a m [facility] Medical Records Department [address] [place] [address] H&P Exam - Hospitalist 12/03/244 MR#: [id number] Acct: [id number] Name: SARAH MCGUIRE Rep #:[id number] : 1945 79 From: Darnell Spivey DO PCP: Dr. Monika Venegas MD Status:ADM TED Location: [place] [address] HPI - General General Date of Admission: [...] to November 27, 2024 who presents to [facility] after initially presenting to [facility] ER on November 07, 2024 complaining [...] expected to be less than 2 midnights. [facility] Medical History (Updated 12/04/24 @ 01:59 by [...] 80.3 H, Lymph % (Auto) 9.0 L, Montague % (Auto) 9.6, Eos % (Auto) 0.1, [...] Clarity Clear, Urine pH 7.0, Ur Specific Girard 1.010, Urine Protein 15 H, Urine Glucose [...] to November 27, 2024 who presents to [facility] after initially presenting to [facility] ER on November 07, 2024 complaining [...] 70 minutes. Charges/Coding Visit Charges OBSV E&M: 59946 Observ/hosp same date L2 12/04/24 0543 <Electronically signed by Darnell Gonzalez DO> Cosigner Signature (if applicable): CC: Dr. Monika Venegas MD; Dr. Darnell Gonzalez DO~ Signed [facility] Work Phone: 1(737) 586-599907-01-2025 History and physical note [facility] Medical Records Department [address] [place] [address] H&P Exam - Hospitalist 12/03/24 2224 MR#: [id number] Acct: [id number] Name: SARAH MCGUIRE Rep #:[id number] : 1945 79 From: Darnell Spivey DO PCP: Dr. Monika Venegas MD Status:ADM TED [facility] HPI - General General Date of Admission: [...] to November 27, 2024 who presents to [facility] after initially presenting to [facility] ER on November 07, 2024 complaining [...] expected to be less than 2 midnights. [facility] Medical History (Updated 12/04/24 @ 01:59 by [...] 80.3 H, Lymph % (Auto) 9.0 L, Montague % (Auto) 9.6, Eos % (Auto) 0.1, [...] Clarity Clear, Urine pH 7.0, Ur Specific Girard 1.010, Urine Protein 15 H, Urine Glucose [...] to November 27, 2024 who presents to [facility] after initially presenting to [facility] ER on November 07, 2024 complaining [...] 70 minutes. Charges/Coding Visit Charges OBSV E&M: 12787 Observ/hosp same date L2 12/04/24 0543 Cosigner Signature (if applicable): CC: Dr. Monika Venegas MD; Dr. Darnell Gonzalez DO~ Signed [facility]07-01-2025 Discharge summary Author Hayden Sadler [facility] Note Date/Time December 03, 2024 10:2 5pm [facility] Medical Records Department [address] [place] [address] Emergency Department Summary 12/03/24 MR#: [id number] Acct: [id number] Name: SARAH MCGUIRE Rep #:[id number] : 1945 79 From: Hayden Sadler DO [...] she has been acting her normal self [facility] Medical History Presbycusis History of rheumatic fever [...] household members: children and other details: DTLazaro Utpon lives with her. housing: house current occupational [...] follow commands knew that she was at [facility]. NIH of 0 GCS 15 Skin: [...] 80.3 H Lymph % (Auto) 9.0 L Montague % (Auto) 9.6 Eos % (Auto) 0.1 [...] Clarity Clear Urine pH 7.0 Ur Specific Girard 1.010 Urine Protein 15 H Urine Glucose [...] MD [Primary Care Provider] - Print Language: Canadian Disposition Disposition: Acute Care Hospital [facility] What to do if you have Problems For any increased pain, shortness of breath, bleeding, nausea or vomiting, chestpain, or any unexpected problems, contact your Primary Care Provider. Call [facility] ([phone]) or report to the closest Emergency Room. Call 911 if necessary. 12/03/242224 <Electronically signed by Hayden Sadler DO> Cosigner Signature (if applicable): CC: Dr. Monika Vengeas MD ~ Signed [facility] Work Phone: 1(732) 977-636006-30-2025 Discharge summary [facility] Medical Records Department [address] [place] [address] Emergency Department Summary 12/03/24 MR#: [id number] Acct: [id number] Name: SARAH MCGUIRE Rep #:[id number] : 1945 79 From: Hayden Sadler DO [...] she has been acting her normal self [facility] Medical History Presbycusis History of rheumatic fever [...] follow commands knew that she was at [facility]. NIH of 0 GCS 15 Skin: [...] 80.3 H Lymph % (Auto) 9.0 L Montague % (Auto) 9.6 Eos % (Auto) 0.1 [...] Clarity Clear Urine pH 7.0 Ur Specific Girard 1.010 Urine Protein 15 H Urine Glucose [...] MD [Primary Care Provider] - Print Language: Canadian Disposition Disposition: Acute Care Hospital [facility] What to do if you have Problems For any increased pain, shortness of breath, bleeding, nausea or vomiting, chestpain, or any unexpected problems, contact your Primary Care Provider. Call [facility] ([phone]) or report tothe closest Emergency Room. Call 911 if necessary. 12/03/242224 Cosigner Signature (if applicable): CC: Dr. Monika Venegas MD ~ Signed [facility]06-30-2025 Discharge summary Author Hayden Sadler [facility] Note Date/Time December 03, 2024 10:2 5pm [facility] Medical Records Department [address] [place] [address] Emergency Department Summary 12/03/24 MR#: [id number] Acct: [id number] Name: SARAH MCGUIRE Rep #:[id number] : 1945 79 From: Hayden Sadler DO [...] follow commands knew that she was at [facility]. NIH of 0 GCS 15 Skin: [...] 80.3 H Lymph % (Auto) 9.0 L Montague % (Auto) 9.6 Eos % (Auto) 0.1 [...] Clarity Clear Urine pH 7.0 Ur Specific Girard 1.010 Urine Protein 15 H Urine Glucose [...] MD [Primary Care Provider] - Print Language: [place] Disposition Disposition: Acute Care Hospital [facility] What to do if you have Problems For any increased pain, shortness of breath, bleeding, nausea or vomiting, chestpain, or any unexpected problems, contact your Primary Care Provider. Call [facility] ([phone]) or report to the closest Emergency Room. Call 911 if necessary. 12/03/24 3516 <Electronically signed by Hayden Sadler DO> Cosigner Signature (if applicable): CC: Dr. Monika Venegas MD ~ Signed [facility] Work Phone: 1(836) 671-501906-26-2025 Discharge summary Author Jo-Ann Arias [facility] Note Date/Time November 29, 2024 10:1 1am [facility] Medical Records Department [address] [place] [address] Instructions for Home/Discharge Instructions 11/27/24 1602 MR#: [id number] Acct: [id number] Name: SARAH MCGUIRE Rep #:[id number] : 1945 79 From: Jo-Ann Arias DO [...] drug) to 750 mg twice a day [id number] mg twice a day. You had an EEG at [facility] and it was negative for seizure. You will need to follow up with a neurologist. There is a excellent neurologistin [place] and his name is Dr. Melchor. He [...] sodium up they have to see a php magento developer(kidney doctor) to help manage the medications. I [...] prevent strokes due to atrial fibrillation(AFIB). OFFICE: [phone] CELL: [phone] NURSES STATION ON REHAB: [phone] Discharge Orders/Prescriptions Prescriptions: New hydralazine 50 mg [...] can be placed): Home Health Service 11/27/24 5207<Electronically signed by Jo-Ann Arias DO>Jo-Ann Arias DO [...] She is going to have HHC at [place]. SW is going to arrange for to follow progress toward healing at home. she is to roll from side to side and not have prolongedlying on her back and sitting in the chair without getting up to walk. Will also have [facility] draw a BMP in 1 week. 11/29/24 [...] MD; Dr. Gibson Yang MD ~* Signed [facility] Work Phone: 1(389) 683-152706-26-2025 Discharge summary [facility] Medical Records Department [address] [place] [address] Discharge Summary 11/27/24 1647 MR#: [id number] Acct: [id number] Name: SARAH MCGUIRE Rep #:[id number] : 1945 79 From: Jo-Ann Arias DO PCP: Dr. Monika Venegas MD Status:ADM IN Location: [place] [address] Providers Date of Admission: 11/12/24 Date of Discharge: 11/28/24 Primary Care Physician: Dr. Monika Venegas MD Consultations 11/28/24 12:17 Consult: Nephrology Routine Consulting Provider: [facility] [place] Reason for Consult: hyponatremia with hx SIADH [...] long-term use: Status: Chronic Code(s): Z79.01 - meterman (current) use of anticoagulants Plan: Continue Eliquis 2.5 mg BID. (8) Bradycardia, sinus: Status: Inactive Code(s): R00.1 - Bradycardia, unspecified Plan: Resolved with the4 discontinuation of Coreg. HR is WNL on Amiodarone 200 mg daily. (9) meterman current use of amiodarone: Status: Chronic Code(s): [...] up with Dr. Schulte post [facility] rehab. (17) Presbycusis: Status: Chronic Code(s): H91.10 [...] 2 Plan: Mepilex applied and will have [facility] at [place] with to follow the ulcer to healing. [...] anxiety treated. Plan 1. [place] home with [facility]. BMP in 1 week. C to draw. 2. Continue Mepilex to the decubitus ulcer [facility] SN will follow 3. BMP in 1 [...] tablet 2.5 mg PO BID called to [facility] tabs 08/13/24 acetaminophen 325 mg [...] who presented to the emergency department at [facility] on 11/07/2024 complaining of increased slurred [...] to presenting to the emergency department at [facility]. Coreg was held for bradycardia but, [...] [facility] and acute rehab was recommended at [place]. She was transferred to the acute in rehab unit at [facility] on 11/12/24 for 3 hours of therapy [...] came up to 134. When the sodium kcs189 the BUN was 32 with a creatinine [...] a BMP done in 1 week post [place]....[facility] to draw and send results to the [...] to follow up with Dr. Melchor post [place] from rehab. HR is WNL on Amiodarone 200 mg daily with no tachycardia. She has not beenbradycardic. Sarah was discharged home with her daughter Alexsandra on 11/29/2024 and will have [facility] home health care. Will have home [...] drug) to 750 mg twice a day [id number] mg twice a day. You had an [...] sodium up they have to see a php magento developer(kidney doctor) to help manage themedications. I would [...] to preventstrokes due to atrial fibrillation(AFIB). OFFICE: [phone] CELL: [phone] NURSES STATION ON REHAB: [phone] Discharge Orders/Prescriptions Prescriptions: New hydralazine 50 mg [...] Health Service Charges/Coding Visit Charges Inpatient E&M: 15274 Disch Hosp >30min 11/29/24 1151 Cosigner Signature (if applicable): CC: Dr. Monika Venegas MD; Dr. Gagan Schulte MD; Dr. Jo-Ann Arias DO; Dr. Odilon Melchor MD; MAGALY Davis~ Signed [facility]06-26-2025 Discharge summary [facility] Medical Records Department [address] [place] [address] Instructions for Home/Discharge Instructions 11/27/24 1602 MR#: [id number] Acct: [id number] Name: SARAH MCGUIRE Rep #:[id number] : 1945 79 From: Jo-Ann Arias DO [...] drug) to 750 mg twice a day [id number] mg twice a day. You had an [...] sodium up they have to see a php magento developer(kidney doctor) to help manage themedications. I would [...] to preventstrokes due to atrial fibrillation(AFIB). OFFICE: [phone] CELL: [phone] NURSES STATION ON REHAB: [phone] Discharge Orders/Prescriptions Prescriptions: New hydralazine 50 mg [...] She is going to have HHC at [place]. SW is going to arrange for SN [...] MD; Dr. Argentina Schmitz MD; Dr. Sanjuana Florse MD; Dr. Odilon Melchor MD; Dr. Deepak Byrd MD; Dr. Gibson Yang MD ~* Signed [facility]06-24-2025 Discharge summary Author [facility] Note Date/Time November 29, 2024 11:5 1am [facility] Medical Records Department [address] [place] [address] Discharge Summary 11/27/24 1647 MR#: [id number] Acct: [id number] Name: SARAH MCGUIRE Rep #:[id number] : 1945 79 From: Jo-Ann Arias DO PCP: Dr. Monika Venegas MD Status:ADM IN Location: [place] [address] Providers Date of Admission: 11/12/24 Date of Discharge: 11/28/24 Primary Care Physician: Dr. Monika Venegas MD Consultations 11/28/24 12:17 Consult: Nephrology Routine Consulting Provider: [facility] [place] Reason for Consult: hyponatremia with hx SIADH [...] long-term use: Status: Chronic Code(s): Z79.01 - meterman (current) use of anticoagulants Plan: Continue Eliquis 2.5 mg BID. (8) Bradycardia, sinus: Status: Inactive Code(s): R00.1 - Bradycardia, unspecified Plan: Resolved with the4 discontinuation of Coreg. HR is WNL on Amiodarone 200 mg daily. (9) half-way current use of amiodarone: Status: Chronic Code(s): [...] Mepilex applied and will have C at [place] with SN to follow the ulcer to [...] to get her anxiety treated. Plan 1. [place] home with [facility]. BMP in 1 week. HHC to draw. 2. Continue Mepilex to the decubitus ulcer C SN will follow 3. BMP in 1 week - results to PCP. 4. Follow up with Dr. Schulte for chronic hyponatremia. 5. Follow up with Dr. Melchor 6. COntinue to follow up with [facility] 7. Follow up with PCP [...] tablet 2.5 mg PO BID called to [facility] tabs 08/13/24 acetaminophen 325 mg [...] who presented to the emergency department at [facility] on 11/07/2024 complaining of increased slurred [...] to presenting to the emergency department at [facility]. Coreg was held for bradycardia but, [...] [facility] and acute rehab was recommended at [place]. She was transferred to the acute inpt rehab unit at [facility] on 11/12/24 for 3 hours of therapy [...] a BMP done in 1 week post DC....[facility] to draw and send results to the [...] daughter Alexsandra on 11/29/2024 and will have [facility] home health care. Will have home [...] drug) to 750 mg twice a day [id number] mg twice a day. You had an [...] sodium up they have to see a php magento developer(kidney doctor) to help manage the medications. I [...] prevent strokes due to atrial fibrillation(AFIB). OFFICE: [phone] CELL: [phone] NURSES STATION ON REHAB: [phone] Discharge Orders/Prescriptions Prescriptions: New hydralazine 50 mg [...] Health Service Charges/Coding Visit Charges Inpatient E&M: 23763 Disch Hosp >30min 11/29/24 1151 <Electronically signed by Jo-Ann Arias DO> Cosigner Signature (if applicable): CC: Dr. Monika Venegas MD; Dr. Gagan Schulte MD; Dr. Jo-Ann Arias DO; Dr. Odilon Melchor MD; MAGALY Davis~ Signed [facility] Work Phone: 1(150) 854-712806-24-2025 Progress note Author Jo-Ann Arias [facility] Note Date/Time November 27, 2024 4:01 pm [facility] Medical Records Department [address] [place] [address] Progress Note 11/26/24 1206 MR#: [id number] Acct: [id number] Name: SARAH MCGUIRE Rep #:[id number] : 1945 79 From: Jo-Ann Arias DO PCP: Dr. Monika Venegas MD Status:ADM IN Location: [place] [address] Subjective Subjective Afebrile VSS - Maintaining appropriate [...] Anticoagulant long-term use: (8) Bradycardia, sinus: (9) meterman current use of amiodarone: (10) High cholesterol: [...] her anxiety. Charges/Coding Visit Charges Inpatient E&M: 72932 Subs Hosp L1 11/27/24 1601 <Electronically signed by Jo-Ann Arias DO> Jo-Ann Arias DO [facility] Signature (if applicable): CC: ~ Signed [facility] Work Phone: 1(921) 796-390706-24-2025 [facility]06-24-2025 Progress note [facility] Medical Records Department [address] [place] [address] Progress Note 11/26/24 1206 MR#: [id number] Acct: [id number] Name: SARAH MCGUIRE Rep #:[id number] : 1945 79 From: Jo-Ann Arias DO PCP: Dr. Monika Venegas MD Status:ADM IN Location: [place] [address] Subjective Subjective Afebrile VSS - Maintaining appropriate [...] Anticoagulant long-term use: (8) Bradycardia, sinus: (9) half-way current use of amiodarone: (10) High cholesterol: [...] her anxiety. Charges/Coding Visit Charges Inpatient E&M: 59736 Subs Hosp L1 11/27/24 1601 Jo-Ann Arias DO Cosigner Signature (if applicable): CC: ~ Signed [facility]06-19-2025 Progress note Author Jo-Ann Hsiehjenny [facility] Note Date/Time November 22, 2024 6:46 pm [facility] Medical Records Department [address] [place] [address] Progress Note 11/22/24 0850 MR#: [id number] Acct: [id number] Name: SARAH MCGUIRE Rep #:[id number] : 1945 79 From: Jo-Ann Arias DO PCP: Dr. Monika Venegas MD Status:ADM IN Location: [place] [address] Subjective Subjective Sarah was seen on team [...] Anticoagulant long-term use: (8) Bradycardia, sinus: (9) half-way current use of amiodarone: (10) High cholesterol: [...] next Tuesday. She will go home with [facility] home health care. This morning when [...] this discussion. Charges/Coding Visit Charges Inpatient E&M: 60355 Subs Hosp L2 11/22/24 1846 <Electronically signed by Jo-Ann Arias DO> Jo-Ann Arias DO Cosigner Signature (if applicable): CC: ~ Signed [facility] Work Phone: 1(230) 550-653406-19-2025 Progress note [facility] Medical Records Department [address] [place] [address] Progress Note 11/22/24 0850 MR#: [id number] Acct: [id number] Name: SARAH MCGUIRE Rep #:[id number] : 1945 79 From: Jo-Ann Arias DO PCP: Dr. Monika Venegas MD Status:ADM IN Location: [place] [address]1 Subjective Subjective Sarah was seen on team [...] Anticoagulant long-term use: (8) Bradycardia, sinus: (9) half-way current use of amiodarone: (10) High cholesterol: [...] next Tuesday. She will go home with [facility] home health care. This morning when [...] this discussion. Charges/Coding Visit Charges Inpatient E&M: 90219 Subs Hosp L2 11/22/24 1846 Jo-Ann Arias DO Cosigner Signature (if applicable): CC: ~ Signed [facility]06-17-2025 Progress note Author Jo-Ann Hsiehjenny [facility] Note Date/Time 2024 11:5 3am [facility] Medical Records Department [address] [place] [address] Progress Note 11/20/24 1140 MR#: [id number] Acct: [id number] Name: SARAH MCGUIRE Rep #:[id number] : 1945 79 From: Jo-Ann Arias DO PCP: Dr. Monika Venegas MD Status:ADM IN Location: [place] [address] Subjective Subjective Afebrile Fluid intake yesterday was [...] Anticoagulant long-term use: (8) Bradycardia, sinus: (9) meterman current use of amiodarone: (10) High cholesterol: [...] the AM. Charges/Coding Visit Charges Inpatient E&M: 87745 Subs Hosp L1 11/20/24 1153 <Electronically signed by Jo-Ann Arias DO> Jo-Ann Arias DO Cosigner Signature (if applicable): CC: ~ Signed [facility] Work Phone: 1(178) 968-597506-17-2025 Progress note [facility] Medical Records Department [address] [place] [address] Progress Note 11/20/24 1140 MR#: [id number] Acct: [id number] Name: SARAH MCGUIRE Rep #:[id number] : 1945 79 From: Jo-Ann Arias DO PCP: Dr. Monika Venegas MD Status:ADM IN Location: [place] [address] Subjective Subjective Afebrile Fluid intake yesterday was [...] Anticoagulant long-term use: (8) Bradycardia, sinus: (9) half-way current use of amiodarone: (10) High cholesterol: [...] the AM. Charges/Coding Visit Charges Inpatient E&M: 09302 Subs Hosp L1 11/20/24 1153 Jo-Ann Arias DO Cosigner Signature (if applicable): CC: ~ Signed [facility]06-16-2025 Progress note Author [facility] [facility] Note Date/Time November 19, 2024 10:5 9am [facility] Medical Records Department [address] [place] [address] Progress Note 11/19/24 0826 MR#: [id number] Acct: [id number] Name: SARAH MCGUIRE Rep #:[id number] : 1945 79 From: Jo-Ann Arias DO PCP: Dr. Monika Venegas MD Status:ADM IN Location: [place] [address] Subjective Subjective Afebrile VSS -blood pressure over [...] Anticoagulant long-term use: (8) Bradycardia, sinus: (9) meterman current use of amiodarone: (10) High cholesterol: [...] BMP . Charges/Coding Visit Charges Inpatient E&M: 09992 Subs Hosp L1 11/19/24 1058 <Electronically signed by Jo-Ann Arias DO> Jo-Ann Arias DO Cosigner Signature (if applicable): CC: ~ Signed [facility] Work Phone: 1(492) 541-714606-16-2025 Progress note [facility] Medical Records Department [address] [place] [address] Progress Note 11/19/24825 MR#: [id number] Acct: [id number] Name: SARAH MCGUIRE Rep #:[id number] : 1945 79 From: Jo-Ann Arias DO PCP: Dr. Monika Venegas MD Status:ADM IN Location: [place] [address] Subjective Subjective Afebrile VSS -blood pressure over [...] Anticoagulant long-term use: (8) Bradycardia, sinus: (9) half-way current use of amiodarone: (10) High cholesterol: [...] BMP . Charges/Coding Visit Charges Inpatient E&M: 24631 Subs Hosp L1 11/19/24 1059 Jo-Ann Arias DO Cosigner Signature (if applicable): CC: ~ Signed [facility]06-13-2025 Progress note Author [facility] Note Date/Time November 16, 2024 7:12 pm [facility] Medical Records Department [address] [place] [address] Progress Note 11/16/24 0828 MR#: [id number] Acct: [id number] Name: SARAH MCGUIRE Rep #:[id number] : 1945 78 From: Jo-Ann Arias DO PCP: Dr. Monika Venegas MD Status:ADM IN Location: [place] [address] Subjective Subjective Afebrile VSS -she was transitioned [...] Anticoagulant long-term use: (8) Bradycardia, sinus: (9) half-way current use of amiodarone: (10) High cholesterol: [...] more days. Charges/Coding Visit Charges Inpatient E&M: 53207 Subs Hosp L1 11/16/241911 <Electronically signed by Jo-Ann Arias DO> Jo-Ann Arias DO Cosigner Signature (if applicable): CC: ~ Signed [facility] Work Phone: 1(430) 685-162306-13-2025 Progress note [facility] Medical Records Department [address] [place] [address] Progress Note 11/16/2428 MR#: [id number] Acct: [id number] Name: SARAH MCGUIRE Rep #:[id number] : 1945 78 From: Jo-Ann Arias DO PCP: Dr. Monika Venegas MD Status:ADM IN Location: [place] [address] Subjective Subjective Afebrile VSS -she was transitioned from lisinopril to hydralazine for blood pressure control yesterday. The blood pressure over the past 24 hours has ranged from 137/38 to 175/80. Blood pressure this a.m. xml396/40. The heart rate is ranged from 54-89. [...] Anticoagulant long-term use: (8) Bradycardia, sinus: (9) meterman current use of amiodarone: (10) High cholesterol: [...] more days. Charges/Coding Visit Charges Inpatient E&M: 98148 Subs Hosp L1 11/16/241911 Jo-Ann Arias DO Cosigner Signature (if applicable): CC: ~ Signed [facility]06-12-2025 Progress note Author [facility] Note Date/Time November 15, 2024 6:12 pm [facility] Medical Records Department [address] [place] [address] Progress Note 11/15/24 1124 MR#: [id number] Acct: [id number] Name: SARAH MCGUIRE Rep #:[id number] : 1945 78 From: Jo-Ann Arias DO PCP: Dr. Monika Venegas MD Status:ADM IN Location: [place] [address] Subjective Subjective Sarah was seen on team [...] Anticoagulant long-term use: (8) Bradycardia, sinus: (9) meterman current use of amiodarone: (10) High cholesterol: [...] Nephrology. 8. Hyponatremia is a SE of [facility] Charges/Coding Visit Charges Inpatient E&M: 10822 Subs Hosp L2 11/15/241811 <Electronically signed by Jo-Ann Arias DO> Jo-Ann Arias DO Cosigner Signature (if applicable): CC: ~ Signed [facility] Work Phone: 1(672) 772-909806-12-2025 Progress note [facility] Medical Records Department [address] [place] [address] Progress Note 11/15/24 1124 MR#: [id number] Acct: [id number] Name: SARAH MCGUIRE Rep #:[id number] : 1945 78 From: Jo-Ann Arias PCP: Dr. Monika Venegas MD Status:ADM IN Location: [place] [address] Subjective Subjective Sarah was seen on team [...] Anticoagulant long-term use: (8) Bradycardia, sinus: (9) meterman current use of amiodarone: (10) High cholesterol: [...] of Kera Charges/Coding Visit Charges Inpatient E&M: 19498 Subs Hosp L2 11/15/24 1812 Jo-Ann Arias DO Cosigner Signature (if applicable): CC: ~ Signed [facility]06-10-2025 History and physical note Author Jo-Ann Arias [facility] Note Date/Time November 13, 2024 2:53 pm [facility] Medical Records Department [address] [facility] [place] [address] Post Admission Physician Radhika 11/13/24 1200 MR#: [id number] Acct: [id number] Name: SARAH MCGUIRE Rep #:[id number] : 1945 78 From: Jo-Ann Arias DO PCP: Dr. Monika Venegas MD Status:ADM IN Location: [place] [address] Admission Information Primary Diagnosis:: Debility/generalized weakness/recent diagnosis [...] Skin integrity and Medication Management Patient needs Product Expert/ Case Management for: Discharge Planning, Arranging Home [...] friends Was Preadmission Assessment Accurate?: Yes 11/13/24 4268 <Electronically signed by Jo-Ann Arias DO> Cosigner Signature (if applicable): CC: ~ Signed [facility] Work Phone: 1(708) 157-770606-10-2025 History and physical note Author [facility] Note Date/Time November 13, 2024 2:48 pm [facility] Medical Records Department [address] [place] [address] History & Physical Exam 11/13/24 1050 MR#: [id number] Acct: [id number] Name: SARAH MCGUIRE Rep #:[id number] : 1945 78 From: Jo-Ann Arias DO PCP: Dr. Monika Venegas MD Status:ADM [facility] - General General Date of Admission: [...] who presented to the emergency department at [facility] on 11/07/2024 complaining of increased slurred [...] to presenting to the emergency department at [facility].. Coreg was held for bradycardia but, [...] to the acute inpt rehab unit at [facility] on 11/12/24 for 3 hours of therapy [...] 3 are all less than 100. [facility] Medical History (Updated 11/13/24 @ 14:46 by [...] [facility] for bradycardia. TSH is normal. (9) half-way current use of amiodarone: (10) High cholesterol: [...] cardiology in January 2024. Last echocardiogram at [facility] was in 2021. It showed an ejection fraction of 60% with stage I diastolic dysfunction, mild left atrial enlargement, mild mitral regurgitation and a PA systolic estimated at 36. She had an echocardiogram at [facility] when she had her craniotomy and the EF was 65 to 70%. The atria were of normal size. There was no qtnkd-pd-gagw shunt. She had mild to moderate mitral [...] with everything. Charges/Coding Visit Charges Inpatient E&M: 48009 Init Hosp L2 11/13/24 8951 <Electronically signed by Jo-Ann Arias DO> Cosigner Signature (if applicable): CC: Dr. Monika Venegas MD; Dr. Jo-Ann Arias DO; MAGALY Davis~ Signed [facility] Work Phone: 1(215) 232-636906-10-2025 History and physical note [facility] Medical Records Department [address] [place] [address] Post Admission Physician Radhika 11/13/24 1200 MR#: [id number] Acct: [id number] Name: SARAH MCGUIRE Rep #:[id number] : 1945 78 From: Jo-Ann Arias DO PCP: Dr. Monika Venegas MD Status:ADM IN Location: [place] [address] Admission Information Primary Diagnosis:: Debility/generalized weakness/recent diagnosis [...] Skin integrity and Medication Management Patient needs Product Expert/ Case Management for: Discharge Planning, Arranging Home [...] friends Was Preadmission Assessment Accurate?: Yes 11/13/24 5719 Cosigner Signature (if applicable): CC: ~ Signed [facility]06-10-2025 History and physical note [facility] Medical Records Department [address] [place] [address] History & Physical Exam 11/13/24 1050 MR#: [id number] Acct: [id number] Name: SARAH MCGUIRE Rep #:[id number] : 1945 78 From: Jo-Ann Arias DO PCP: Dr. Monika Venegas MD Status:ADM IN Location: [place] [address] HPI - General General Date of Admission: [...] who presented to the emergency department at [facility] on 11/07/2024 complaining of increased slurred [...] to presenting to the emergency department at [facility].. Coreg was held for santosh ycardia [...] [facility] and acute re[facility] recommended [place]. She was transferred to the acute inpt rehab unit at [facility] on 11/12/24 for 3 hours of therapy [...] 3 are all less than 100. [facility] Medical History (Updated 11/13/24 @ 14:46 by [...] [facility] for bradycardia. TSH is normal. (9) half-way current use of amiodarone: (10) High cholesterol: [...] cardiology in January 2024. Last echocardiogram at [facility] was in 2021. It showed an ejection fraction of 60% with stage I diastolic dysfunction, mild left atrial enlargement, mild mitral regurgitation and a PA systolic estimated at 36. She had an echocardiogram at [facility] when she had her craniotomy and the EF was 65 to 70%. The atria were of normal size. There was no bazpj-ui-jias shunt. She had mild to moderate mitral [...] with everything. Charges/Coding Visit Charges Inpatient E&M: 28506 Init Hosp L2 11/13/24 1448 Cosigner Signature (if applicable): CC: Dr. Monika Venegas MD; Dr. Jo-Ann Arias DO; MAGALY Davis~ Signed [facility] note* Diagnosis Onset Date Resolution [...] hematoma chron ic November 12, 2024 6:16pm meterman current use of amiodarone chronic November 12, 2024 6 :16pm Mild aortic stenosis chronic November 12, 2024 6:16pm Paroxysmal atrial fibrillation chron ic November 12, 2024 6:16pm Presbycusis chronic November 12 6:16pm Severe anxiety chronic November 12, 2024 6:16pm Acute cystitis resolved November 12, 2024 6:16pm Hypo-osmolality and hyponatremia res olved November 12, 2024 6:16pm Bradycardia, sinus inactive November 122024 6:16pm [facility] Work Phone: 1(681) 256-689006-09-2025 Evaluation note* Diagnosis Onset Date Resolution Status [...] hematoma chron ic November 12, 2024 6:16pm half-way current use of amiodarone chronic November 12, [...] hematoma chron ic December 03, 2024 10:35pm [facility] Work Phone: 1(505) 105-309806-09-2025 Evaluation note* Diagnosis Onset Date Resolution Status [...] hematoma chron ic November 12, 2024 6:16pm meterman current use of amiodarone chronic November 12, [...] hematoma chron ic December 05, 2024 6:07pm [facility] Work Phone: [phone]) 685-653806-09-2025 Evaluation note* Diagnosis Onset Date Resolution Status [...] hematoma inact henrietta November 12, 2024 6:16pm half-way current use of amiodarone inactive November 12, [...] hematoma inact henrietta December 05, 2024 6:07pm [facility] Work Phone: 1([phone]) 239-708206-09-2025 Evaluation note* Diagnosis Onset Date Resolution Status Admit Date Decubitus ulcer of coccyx, s tage 2 acute November 12, 2024 6 :16pm Generalized muscle weakness acute November 12, 2024 6:16pm meterman current use of amiodarone acute November 12, [...] LFTs acute December 11, 2 025 3:10pm half-way current use of amiodarone acute December 11, 2024 3 :10pm Paroxysmal atrial fibrillation acute December 11, 2024 3:10pm [facility] [employer] [facility] Work Phone: 1(291) 960-507206-09-2025 Evaluation note* Diagnosis Onset Date Resolution Status Admit Date Decubitus ulcer of coccyx, s tage 2 acute November 12, 2024 6 :16pm Generalized muscle weakness acute November 12, 2024 6:16pm meterman current use of amiodarone acute November 12, [...] (CVA) acute December 11, 2024 3 :10pm meterman current use of amiodarone acute December 11, 2024 3 :10pm Paroxysmal atrial fibrillation acute December 11, 2024 3:10pm [facility] [place] [facility] Work Phone: [phone]) 845-454906-09-2025 Evaluation note* Diagnosis Onset Date Resolution Status Admit Date Decubitus ulcer of coccyx, s tage 2 acute November 12, 2024 6 :16pm Generalized muscle weakness acute November 12, 2024 6:16pm meterman current use of amiodarone acute November 12, [...] (CVA) acute December 11, 2024 3 :10pm half-way current use of amiodarone acute December 11, 2024 3 :10pm Paroxysmal atrial fibrillation acute December 11, 2024 3:10pm Impacted cerumen of both ears acute December 20, 2024 11:17am [facility] Work Phone: [phone]) 726-657606-09-2025 Evaluation note* Diagnosis Onset Date Resolution Status Admit Date Decubitus ulcer of coccyx, s tage 2 acute November 12, 2024 6 :16pm Generalized muscle weakness acute November 12, 2024 6:16pm meterman current use of amiodarone acute November 12, [...] (CVA) acute December 11, 2024 3 :10pm meterman current use of amiodarone acute December 11, [...] both ears acute December 20, 2024 11:17am [facility] [employer] [facility] Work Phone: [phone]) 387-382506-09-2025 Evaluation note* Diagnosis Onset Date Resolution Status Admit Date Decubitus ulcer of coccyx, s tage 2 acute November 12, 2024 6 :16pm Generalized muscle weakness acute November 12, 2024 6:16pm half-way current use of amiodarone acute November 12, [...] (CVA) acute December 11, 2024 3 :10pm meterman current use of amiodarone acute December 11, [...] cerebrovascular accident (CVA) acute January 18 3:27pm meterman current use of amiodarone acute January 18 3:27pm Paroxysmal atrial fibrillation acute January 18, 2025 3:27pm [facility] [place] [place] [facility] Work Phone: [phone]) [phone] Evaluation note* Diagnosis Onset Date Resolution Status Admit Date Decubitus ulcer of coccyx, stage 2 acute November 12, 2024 6 :16pm Generalized muscle weakness acute November 12, 2024 6:16pm meterman current use of amiodarone acute November 12, [...] (CVA) acute December 11, 2024 3 :10pm half-way current use of amiodarone acute December 11, [...] cerebrovascular accident (CVA) acute January 18 3:27pm half-way current use of amiodarone acute January 18 3:27pm Paroxysmal atrial fibrillation acute January 18, 2025 3:27pm History of resection of meningioma acute February 26, 2025 9:39am Mild cognitive impairment acute February 26, 2025 9:39am Chronic subdural hematoma chronic February 26, 2025 9:39am [facility] [place] [place] [facility] Work Phone: [phone]) 890-553606-09-2025 Evaluation note* Diagnosis Onset Date Resolution Status Admit Date Decubitus ulcer of coccyx, stage 2 acute November 12, 2024 6 :16pm Generalized muscle weakness acute November 12, 2024 6:16pm half-way current use of amiodarone acute November 12, [...] (CVA) acute December 11, 2024 3 :10pm meterman current use of amiodarone acute December 11, [...] cerebrovascular accident (CVA) acute January 18 3:27pm meterman current use of amiodarone acute January 18 [...] cerebrovascular accident (CVA) acute March 13 2:39pm half-way current use of amiodarone acute March 13 2:39pm Paroxysmal atrial fibrillation acute March 13, 2025 2:39pm [facility] [employer] [facility] Work Phone: [phone]) 532-886906-09-2025 Hospital course Narrative* Angel Melendrez MD - [...] during her recent hospital stay at [facility]. As you may know, Sarah Mcguire [...] the patient's recordscan be obtained via [email or web address] at [email or web address] It has been my pleasure participating [...] erythema Skin: No jaundice or rash Neuro: digital sales manager 3-7, 9-11 intact and equal. Strength grossly equal in muscle groups of the bilateral UEsand LEs. Psych: Ox3, appropriate affect and cognition Recent Labs 11/12/24 0458 WBC 6.18 HGB 10.6* PLATELET 195 SODIUM 131* POTASSIUM 4.5 CO2 25 ANIONGAP 12 BUN 16 CREATSERUM 0.89 Patient Instructions Future Appointments Date Time Provider Department Center 11/28/2024 12:00 PM MD LIZET Esquivel [address] [id number] Medication List for when you go home [...] Spironolactone 25 MG/5ML [facility] Plan of care note* Plan of Care [...] Discharge Problem: Mobility Impairment Goal: Optimal Mobility Baxter and Safety Outcome: Adequate for Discharge Problem: Communication Impairment Goal: Effective Communication Skills Outcome: Adequate for Discharge [facility]06-09-[facility] Miscellaneous Notes* Plan of Care - Shanna [...] Discharge Problem: Mobility Impairment Goal: Optimal Mobility Baxter and Safety Outcome: Adequate for Discharge Problem: [...] Progressing Problem: Mobility Impairment Goal: Optimal Mobility Baxter and Safety Outcome: Progressing Problem: Communication Impairment [...] Progressing Problem: Mobility Impairment Goal: Optimal Mobility Baxter and Safety Outcome: Progressing * Nursing Notes [...] RN Right heel blanchable [facility] Miscellaneous Notes* Plan of Care - Shanna [...] Discharge Problem: Mobility Impairment Goal: Optimal Mobility Baxter and Safety Outcome: Adequate for Discharge Problem: [...] Progressing Problem: Mobility Impairment Goal: Optimal Mobility Baxter and Safety Outcome: Progressing Problem: Communication Impairment [...] Progressing Problem: Mobility Impairment Goal: Optimal Mobility Baxter and Safety Outcome: Progressing * Nursing Notes [...] Right heel blanchable [facility] [place] Nurse Note* Nursing Notes - Shanna Benavides RN - 11/12/2024 3:42 PM EDT [facility] called to [facility]. [facility] History of Present illness Narrative* KEY Cast - 11/12/2024 12:59 PM EDT Care Management Discharge Note Selected Continued Care - Admitted Since 11/07/2024 Destination Coordination complete. Service Provider Services Address Phone Fax Patient Preferred [facility] [address] [facility] [address] [phone] -- Transport Request Mode of Transfer: S Name of Discharge Transport Company: ([facility]) Discharge Transport ETA: 3pm Patient medically stable for discharge per physician/medical team. Patient/Email Marketing Assistant remain inagreement with the discharge plan. JEREMI Cast LSW Delinquent Tax Collector Available by Secure Chat * Karen Johnson, PT - 11/12/2024 12:29 PM EDT Acute Physical Therapy Treatment Prior Gross Functional Mobility: used device, independent Current AM-PAC score(s): CURRENT AM-PAC Mobility Raw Score: 15 Based on the above AM-PAC score(s) and PT clinical judgment, patient is a good candidate for discharge to Detention Facility Barriers to discharge home: Patient needs [...] break Mobility Assessment/Intervention: Supine to Sit Mobility Baxter Level: Supine->Sit: minimum assist (75% patient effort) Bed Features/Set-up: Supine->Sit: Head of bed elevated, Use of bed rail Skilled Rationale: Positioning, Sequencing, Hand placement, Verbal cues Skilled Intervention/Details: Supine->Sit: increased time and step by step cues for sequencing Transfer Assessment/Intervention: Sit to Stand Transfer Baxter Level: Sit->Stand: minimum assist (75% patient effort) [...] control each stand to sit Bed-Chair Transfer Baxter Level: Bed<->Chair: moderate assist (50% patient effort) Physical Assist: Bed<->Chair: 2 person assist Assistive Device: Bed<->Chair: gait belt, hand held assist Skilled Rationale: Positioning, Sequencing, Hand placement, Verbal cues Skilled Intervention/Details: Bed<->Chair: Pt completed bed to chair transfer with arm and arm assist, pt required increased time but able to complete x 2-3 steps Gait/Functional Mobility Assessment/Intervention: Gait Assessment Baxter Level: Gait: minimum assist (75% patient effort) [...] to complete Stairs Assessment/Intervention: Outcome Score(s): CURRENT [facility] Basic Mobility Inpatient Short Form Turning [...] with a railin - Total Assistance CURRENT [facility] Mobility Raw Score: 15 CURRENT [facility] Mobility Functional Limitation: 57.70% Impaired in [...] OT clinical judgment, discharge destination recommendation is: Detention Facility Barriers to discharge home: Patient needs [...] shift Mobility Assessment/Intervention: Supine to Sit Mobility Baxter Level: Supine->Sit: minimum assist (75% patient effort) Bed Features/Set-up: Supine->Sit: Head of bed elevated, Use of bed rail Skilled Rationale: Tactile cues, Verbal cues Skilled Intervention/Details: Supine->Sit: step by step sequencing cues and assist at LEs Transfer Assessment/Intervention: Sit to Stand Transfer Baxter Level: Sit->Stand: minimum assist (75% patient effort) [...] anterior weight shift Stand to Sit Transfer Baxter Level: Stand->Sit: minimum assist (75% patient effort) Assistive Device: Stand->Sit: gait belt, front-wheeled walker, armed chair Skilled Rationale: Hand placement, Verbal cues, Controlled descent for sitting Skilled Intervention/Details: Stand->Sit: cues for proximity to chair and reaching back to arm rest with fair eccentric control Bed-Chair Transfer Baxter Level: Bed<->Chair: moderate assist (50% patient effort) Physical Assist: Bed<->Chair: 2 person assist Assistive Device: Bed<->Chair: gait belt, hand held assist Skilled Rationale: Verbal cues, Tactile cues Skilled Intervention/Details: Bed<->Chair: pivot transfer to left with bilat arm in arm, assist to weight shift bilat to progress feet Functional Mobility: Functional Mobility Baxter Level: Functional Mobility/Gait: minimum assist (75% patient [...] ww, close chair follow Outcome Score(s): CURRENT [facility] Daily Activity Inpatient Short Form Putting on/Taking Off Lower Body Clothin - Total Assistance Bathin - A Lot of Assistance Toiletin - Total Assistance Putting on/Taking Off Upper Body Clothin - A Little Assistance Groomin - A Little Assistance Eatin - No Assistance CURRENT [facility] Activity Raw Score: 14 CURRENT [facility] Activity Functional Limitation/Modifier: 59.67% Currently Impaired [...] @ 3:00pm Pick-up from 0E 1078/A Destination [facility] [address] [place] [id number] Miracle Graff Care Management Fabric Worker Fitter * MOIRA Lowe - 11/11/2024 1:38 PM EDT Psychosocial Assessment Per chart review, patient is an 78 year old female who presents with concern for slurred speech/word finding difficulty. Securities Broker met with patient to introduce self, explain social work role during the inpatient stay and answer patient questions. Patient was alert and oriented x 4 and agreeable to social work visit. Information Source Information Source Information Source: patient Information Source Name: Sarah Mcguire Information Source Number: [phone] Considerations for the Medical Team: Patient has [...] issues: Positive tox screen: No Cultural, Spiritual, Evangelical Practices Cultural or taoist practices that may impact discharge planning and/or [...] No needs at this time. CHIOMA Quesada Clock And Watch Hands Dipper * MOIRA Lowe - 11/11/2024 1:33 PM EDT 11/11/24 1332 Social Work Screenings Screening patient has qualified for Trauma Patient appropriate for screening? Yes Trauma Screening Were you using substances at the time of the accident? No Is alcohol use a problem? No Interventions Intervention Needed? No CHIOMA Quesada Clock And Watch Hands Dipper * Angel Melendrez MD - 11/11/2024 9:16 AM EDT [facility] Medicine Daily Progress Note Patient: Sarah Mcguire, [...] events captured on EEG. - Continue keppra 89596 mg BID Hypertensive Urgency: SBP in 200's [...] Weight PHYSICAL EXAM Gen: A, A, NAD, AKUTAN ENT: MMM Resp: CTA & P bilat, normal effort Cardio: RRR, normal S1, S2, No TRISTAN GI: S/NT/ND, NABS Psych: Ox3, appropriate affect and cognition DATA REVIEW WBC/Hgb/Hct/Plts: 5.77/10.2/29.3/193 (11/12 435) Na/K+/Phos/Mg/Ca: 130/4.3/--/--/-- (11/12 435) Bun/Creat/Cl/CO2/Glucose: 15/0.93/98/24/95 (11/12 435) * Angel Melendrez MD - 11/10/2024 7:35 AM EDT [facility] Medicine Daily Progress Note Patient: Sarah Mcguire, [...] Weight PHYSICAL EXAM Gen: A, A, NAD, AKUTAN ENT: MMM Resp: CTA & P bilat, normal effort Cardio: RRR, normal S1, S2, No TRISTAN GI: S/NT/ND, NABS Psych: Ox3, appropriate affect and cognition DATA REVIEW WBC/Hgb/Hct/Plts: 9.67/11.1/31.4/205 (11/10 338) Na/K+/Phos/Mg/Ca: 132/4.7/--/--/-- (11/10 338) Bun/Creat/Cl/CO2/Glucose: 16/0.78/99/25/96 (11/10 338) * TERRY Loja - 11/09/2024 3:43 PM EDT Acute Care Speech Therapy Screen Note ? EDGER RUNNER speech/language/cognitive consult received and chart review completed [...] this time. If concerns arise, recommend outpatient EDGER RUNNER services. Time in: 0 Time out: 0 Speech-Language Pathologist TERRY Loja * Karen Johnson, PT - 11/09/2024 10:35 AM EDT Acute Physical Therapy Evaluation Prior Gross Functional Mobility: used device, independent Current AM-PAC score(s): CURRENT AM-PAC Mobility Raw Score: 10 Based on the above AM-PAC score(s) and PT clinical judgment, patient is a good candidate for discharge to Detention Facility Barriers to discharge home: Patient needs [...] noted Mobility Assessment: Supine to Sit Mobility Baxter Level: Supine->Sit: moderate assist (50% patient effort) [...] assist Transfer Assessment: Sit to Stand Transfer Baxter Level: Sit->Stand: minimum assist (75% patient effort) Physical Assist: Sit->Stand: 2 person assist Assistive Device: Sit->Stand: gait belt, hand held assist Skilled Rationale: Positioning, Sequencing, Hand placement, Verbal cues Skilled Intervention/Details: Sit->Stand: pt educated in sit to stand transfer with min assist of 2 and arm and arm assist, pt completed sit to stand from EOB and bedside commode Bed-Chair Transfer Baxter Level: Bed<->Chair: moderate assist (50% patient effort) [...] with a railin - Total Assistance CURRENT -[facility] Mobility Raw Score: 10 CURRENT [facility] Mobility Functional Limitation: 76.75% Impaired in [...] Current recommendation is for SNF. Patient prefer [facility]. She had been there in the past. CM will initiate referral today. YI TBD. Initial Discharge Planning Expected Discharge Disposition: Detention Facility Transportation Available for Discharge: Ambulance Anticipated DME: unknown at this time Anticipated Services at Discharge: Physical Therapy, Occupational Therapy, Outpatient follow up, Detention Patient Assessment Completed: Initial Legal Next of Kin Does the patient have a Guardian?: No Spouse: No Adult Child(morris), List All Adult Children: Yes Name and Contact information: Alexsandra Grullon [phone] Reviewed and Updated in Demographics? : Yes Advanced Care Planning Has the patient completed Advance Directives?: Completed, Not Available in Medical Record Copy of Advance Directives was requested?: Yes Advance Directives Requested From: Daughter Medication Management Does the patient have prescription insurance coverage? : Yes Is the patient on Anticoagulation? : Yes Provider or Clinic that manages Anticoagulation?: [facility] [address] [place] [phone] [facility] [address] [facility] [address] Living Environment and Support System Is the patient from a facility or custodial?: No Living Environment: House Patient Caregiving Responsibilities: [...] prior to this acute illness?: independent (Patient AKUTAN and prefers Daughter answer CM questions) Is the patient's baseline functioning changed by this acute illness? : Yes Changes observed : Physical Concerns with patient being able to care for themselves at home? : Yes JEREMI Cast, KEY Delinquent Tax Collector Available by Secure Chat * Grace Meyer OT - 11/09/2024 10:15 AM EDT Acute Occupational Therapy Evaluation Prior Gross Functional Mobility: used device, independent Current AM-PAC score(s): CURRENT AM-PAC Activity Raw Score: 14 Based on the above AM-PAC score(s) and OT clinical judgment, discharge destination recommendation is: Detention Facility Barriers to discharge home: Patient needs [...] positioning Toileting Intervention/Details: Transferred to and from [facility] with min Ax2 and stood with min [...] Edema: Mobility Assessment: Supine to Sit Mobility Baxter Level: Supine->Sit: moderate assist (50% patient effort) Physical Assist: Supine->Sit: 2 person assist Bed Features/Set-up: Supine->Sit: Head of bed elevated Skilled Rationale: Verbal cues Skilled Intervention/Details: Supine->Sit: step by step sequencing cues, increased time, assist at trunk and hips Transfer Assessment: Sit to Stand Transfer Baxter Level: Sit->Stand: minimum assist (75% patient effort) Physical Assist: Sit->Stand: 2 person assist Assistive Device: Sit->Stand: gait belt, hand held assist Skilled Rationale: Verbal cues, Tactile cues, Full extension to upright positioning/posture Skilled Intervention/Details: Sit->Stand: Completed x1 from EOB, x1 from BSC, and x1 from recliner. Bilat arm in arm, tactile cues at hips and cues for full upright posture Bed-Chair Transfer Baxter Level: Bed<->Chair: moderate assist (50% patient effort) [...] to left. Functional Mobility: Outcome Score(s): CURRENT [facility] Daily Activity Inpatient Short Form Putting on/Taking Off Lower Body Clothin - Total Assistance Bathin - A Lot of Assistance Toiletin - Total Assistance Putting on/Taking Off Upper Body Clothin - A Little Assistance Groomin - A Little Assistance Eatin - No Assistance CURRENT -[facility] Activity Raw Score: 14 CURRENT -[facility] Activity Functional Limitation/Modifier: 59.67% Currently Impaired [...] Melendrez MD - 11/09/2024 8:36 AM EDT [facility] Medicine Daily Progress Note Patient: Sarah Mcguire, [...] Weight PHYSICAL EXAM Gen: A, A, NAD, AKUTAN ENT: MMM Resp: CTA & P bilat, [...] No - altered mental status JEREMI Keith, DIRECTOR MEDICAL ECONOMICS-S Clock And Watch Hands Dipper, Emergency Dept. * МАРИЯ Pete - 11/07/2024 1:44 PM EDT Trauma Response Per EMS ([facility] 5), patient is Sarah Mcguire 41 Family is not present. EMS states daughter is en route. Pastoral presence provided. Rev. Abraham Stokes M.Div., MA, [facility] [phone] (office) Chaplains are available 27/12 by paging [phone]. 11/07/24 1315 Clinical Encounter Type Visited With Health Care Provider;Patient Visit Type Introduction Crisis Visit Trauma Pastoral Time Spent 15 min Referral Automated Page Interventions Provided Active listening;Supportive presence Plan of Care Continue Visiting [facility] History of Present illness Narrative* KEY Cast - 11/12/2024 12:59 PM EDT Care Management Discharge Note Selected Continued Care - Admitted Since 11/07/2024 Destination Coordination complete. Service Provider Services Address Phone Fax Patient Preferred [facility] [place] [address] [phone] -- Transport Request Mode of Transfer: BLS Name of Discharge Transport Company: ([facility]) Discharge Transport ETA: 3pm Patient medically stable for discharge per physician/medical team. Patient/Email Marketing Assistant remain inagreement with the discharge plan. JEREMI Cast LSW Delinquent Tax Collector Available by Secure Chat * Karen Johnson, PT - 11/12/2024 12:29 PM EDT Acute Physical Therapy Treatment Prior Gross Functional Mobility: used device, independent Current AM-PAC score(s): CURRENT AM-PAC Mobility Raw Score: 15 Based on the above AM-PAC score(s) and PT clinical judgment, patient is a good candidate for discharge to Detention Facility Barriers to discharge home: Patient needs [...] break Mobility Assessment/Intervention: Supine to Sit Mobility Baxter Level: Supine->Sit: minimum assist (75% patient effort) Bed Features/Set-up: Supine->Sit: Head of bed elevated, Use of bed rail Skilled Rationale: Positioning, Sequencing, Hand placement, Verbal cues Skilled Intervention/Details: Supine->Sit: increased time and step by step cues for sequencing Transfer Assessment/Intervention: Sit to Stand Transfer Baxter Level: Sit->Stand: minimum assist (75% patient effort) [...] control each stand to sit Bed-Chair Transfer Baxter Level: Bed<->Chair: moderate assist (50% patient effort) Physical Assist: Bed<->Chair: 2 person assist Assistive Device: Bed<->Chair: gait belt, hand held assist Skilled Rationale: Positioning, Sequencing, Hand placement, Verbal cues Skilled Intervention/Details: Bed<->Chair: Pt completed bed to chair transfer with arm and arm assist, pt required increased time but able to complete x 2-3 steps Gait/Functional Mobility Assessment/Intervention: Gait Assessment Baxter Level: Gait: minimum assist (75% patient effort) [...] to complete Stairs Assessment/Intervention: Outcome Score(s): CURRENT [facility] Basic Mobility Inpatient Short Form Turning [...] with a railin - Total Assistance CURRENT [facility] Mobility Raw Score: 15 CURRENT [facility] Mobility Functional Limitation: 57.70% Impaired in [...] OT clinical judgment, discharge destination recommendation is: Detention Facility Barriers to discharge home: Patient needs [...] shift Mobility Assessment/Intervention: Supine to Sit Mobility Baxter Level: Supine->Sit: minimum assist (75% patient effort) Bed Features/Set-up: Supine->Sit: Head of bed elevated, Use of bed rail Skilled Rationale: Tactile cues, Verbal cues Skilled Intervention/Details: Supine->Sit: step by step sequencing cues and assist at LEs Transfer Assessment/Intervention: Sit to Stand Transfer Baxter Level: Sit->Stand: minimum assist (75% patient effort) [...] anterior weight shift Stand to Sit Transfer Baxter Level: Stand->Sit: minimum assist (75% patient effort) Assistive Device: Stand->Sit: gait belt, front-wheeled walker, armed chair Skilled Rationale: Hand placement, Verbal cues, Controlled descent for sitting Skilled Intervention/Details: Stand->Sit: cues for proximity to chair and reaching back to arm rest with fair eccentric control Bed-Chair Transfer Baxter Level: Bed<->Chair: moderate assist (50% patient effort) Physical Assist: Bed<->Chair: 2 person assist Assistive Device: Bed<->Chair: gait belt, hand held assist Skilled Rationale: Verbal cues, Tactile cues Skilled Intervention/Details: Bed<->Chair: pivot transfer to left with bilat arm in arm, assist to weight shift bilat to progress feet Functional Mobility: Functional Mobility Baxter Level: Functional Mobility/Gait: minimum assist (75% patient [...] ww, close chair follow Outcome Score(s): CURRENT [facility] Daily Activity Inpatient Short Form Putting on/Taking Off Lower Body Clothin - Total Assistance Bathin - A Lot of Assistance Toiletin - Total Assistance Putting on/Taking Off Upper Body Clothin - A Little Assistance Groomin - A Little Assistance Eatin - No Assistance CURRENT [facility] Activity Raw Score: 14 CURRENT [facility] Activity Functional Limitation/Modifier: 59.67% Currently Impaired [...] for discharge arranged Mode of Transfer: (P) [facility] Name of Discharge Transport Company: (P) Other ([facility]) Discharge Transport ETA: (P) 11/12/2024 @ 3:00pm Pick-up from [facility] 1078/A Destination [address] [address] [address] Care Management Fabric Worker Fitter * Nicholas Carrizales MD - 11/12/2024 10:00 [...] difficulties. Concerning for breakthrough seizure with prior DIRECTOR OF CULTURE operation, mild increase of prior extra-axial DIRECTOR OF CULTURE fluid collections. MR scan without stroke. MRA [...] Dr. Ferguson. Please call the Neurology resident flooring professional or page Consult Team A on [email or web address] with questions. Signed, Cosigned by Bill Ferguson MD at 11/13/2024 7:22 AM EDT Associated attestation - Bill Ferguson MD - 11/13/2024 7:22 AM EDT I discussed the the assessment and plan for this patient with the resident. Bill Ferguson M.D. Nuclear Monitoring Technician of Neurology Co-Director of Neurohospitalist Medicine & Teleneurology * Abdirahman WilliamMOIRA - 11/11/2024 1:38 PM EDT Psychosocial Assessment Per chart review, patient is an 78 year old female who presents with concern for slurred speech/word finding difficulty. Securities Broker met with patient to introduce self, explain social work role during the inpatient stay and answer patient questions. Patient was alert and oriented x 4 and agreeable to social work visit. Information Source Information Source Information Source: patient Information Source Name: Sarah Mcguire Information Source Number: [id number] Considerations for the Medical Team: Patient has [...] issues: Positive tox screen: No Cultural, Spiritual, Evangelical Practices Cultural or taoist practices that may impact discharge planning and/or [...] No needs at this time. CHIOMA Quesada Clock And Watch Hands Dipper * MOIRA Lowe - 11/11/2024 1:33 PM EDT 11/11/24 1332 Social Work Screenings Screening patient has qualified for Trauma Patient appropriate for screening? Yes Trauma Screening Were you using substances at the time of the accident? No Is alcohol use a problem? No Interventions Intervention Needed? No Abdirahman Cooley MSW, DIRECTOR MEDICAL ECONOMICS-S Clock And Watch Hands Dipper * Angel Melendrez MD - 11/11/2024 9:16 AM EDT [facility] Medicine Daily Progress Note Patient: Sarah Mcguire, [...] events captured on EEG. - Continue keppra 48148 mg BID Hypertensive Urgency: SBP in 200's [...] Weight PHYSICAL EXAM Gen: A, A, NAD, AKUTAN ENT: MMM Resp: CTA & P bilat, normal effort Cardio: RRR, normal S1, S2, No TRISTAN GI: S/NT/ND, NABS Psych: Ox3, appropriate affect and cognition DATA REVIEW WBC/Hgb/Hct/Plts: 5.77/10.2/29.3/193 (11/12 435) Na/K+/Phos/Mg/Ca: 130/4.3/--/--/-- (11/12 435) Bun/Creat/Cl/CO2/Glucose: 15/0.93/98/24/95 (11/12 435) * Angel Melendrez MD - 11/10/2024 7:35 AM EDT [facility] Medicine Daily Progress Note Patient: Sarah Mcguire, [...] Weight PHYSICAL EXAM Gen: A, A, NAD, AKUTAN ENT: MMM Resp: CTA & P bilat, normal effort Cardio: RRR, normal S1, S2, No TRISTAN GI: S/NT/ND, NABS Psych: Ox3, appropriate affect and cognition DATA REVIEW WBC/Hgb/Hct/Plts: 9.67/11.1/31.4/205 (11/10 338) Na/K+/Phos/Mg/Ca: 132/4.7/--/--/-- (11/10 338) Bun/Creat/Cl/CO2/Glucose: 16/0.78/99/25/96 (11/10 338) * TERRY Loja - 11/09/2024 3:43 PM EDT Acute Care Speech Therapy Screen Note ? EDGER RUNNER speech/language/cognitive consult received and chart review completed [...] this time. If concerns arise, recommend outpatient EDGER RUNNER services. Time in: 1529 Time out: 1529 Speech-Language Pathologist Radha Yost, EDGER RUNNER * Karen Johnson, PT - 11/09/2024 10:35 AM EDT Acute Physical Therapy Evaluation Prior Gross Functional Mobility: used device, independent Current AM-PAC score(s): CURRENT AM-PAC Mobility Raw Score: 10 Based on the above AM-PAC score(s) and PT clinical judgment, patient is a good candidate for discharge to Detention Facility Barriers to discharge home: Patient needs [...] noted Mobility Assessment: Supine to Sit Mobility Baxter Level: Supine->Sit: moderate assist (50% patient effort) [...] assist Transfer Assessment: Sit to Stand Transfer Baxter Level: Sit->Stand: minimum assist (75% patient effort) Physical Assist: Sit->Stand: 2 person assist Assistive Device: Sit->Stand: gait belt, hand held assist Skilled Rationale: Positioning, Sequencing, Hand placement, Verbal cues Skilled Intervention/Details: Sit->Stand: pt educated in sit to stand transfer with min assist of 2 and arm and arm assist, pt completed sit to stand from EOB and bedside commode Bed-Chair Transfer Baxter Level: Bed<->Chair: moderate assist (50% patient effort) [...] steps Gait/Functional Mobility: Stairs: Outcome Score(s): CURRENT [facility] Basic Mobility Inpatient Short Form Turning [...] with a railin - Total Assistance CURRENT [facility] Mobility Raw Score: 10 CURRENT [facility] Mobility Functional Limitation: 76.75% Impaired in [...] current Physical Therapy Discharge Summary. * VAUGHN CastW - 11/09/2024 10:35 AM EDT Discharge Planning Assessment Is the patient able to participate in the assessment?: Yes Care Management Plan CM met with patient and daughter at bedside, Daughter stated she moved in with patient about a yearago. Daughter assists patient with safety. Current recommendation is for SNF. Patient prefer [facility]. She had been there in the past. CM will initiate referral today. YI TBD. Initial Discharge Planning Expected Discharge Disposition: Detention Facility Transportation Available for Discharge: Ambulance Anticipated DME: unknown at this time Anticipated Services at Discharge: Physical Therapy, Occupational Therapy, Outpatient follow up, Detention Patient Assessment Completed: Initial Legal Next of Kin Does the patient have a Guardian?: No Spouse: No Adult Child(morris), List All Adult Children: Yes Name and Contact information: Alexsandra Grullon [phone] Reviewed and Updated in Demographics? : Yes Advanced Care Planning Has the patient completed Advance Directives?: Completed, Not Available in Medical Record Copy of Advance Directives was requested?: Yes Advance Directives Requested From: Daughter Medication Management Does the patient have prescription insurance coverage? : Yes Is the patient on Anticoagulation? : Yes Provider or Clinic that manages Anticoagulation?: [facility] [address] [place] [phone] [phone] [address] Living Environment and Support System Is the patient from a facility or custodial?: No Living Environment: House Patient Caregiving Responsibilities: [...] prior to this acute illness?: independent (Patient AKUTAN and prefers Daughter answer CM questions) Is the patient's baseline functioning changed by this acute illness? : Yes Changes observed : Physical Concerns with patient being able to care for themselves at home? : Yes JEREMI Cast, JUNIOR JAVA DEVELOPER Delinquent Tax Collector Available by Secure Chat * Grace Meyer OT - 11/09/2024 10:15 AM EDT Acute Occupational Therapy Evaluation Prior Gross Functional Mobility: used device, independent Current AM-PAC score(s): CURRENT AM-PAC Activity Raw Score: 14 Based on the above AM-PAC score(s) and OT clinical judgment, discharge destination recommendation is: Detention Facility Barriers to discharge home: Patient needs [...] positioning Toileting Intervention/Details: Transferred to and from [facility] with min Ax2 and stood with min [...] Edema: Mobility Assessment: Supine to Sit Mobility Baxter Level: Supine->Sit: moderate assist (50% patient effort) Physical Assist: Supine->Sit: 2 person assist Bed Features/Set-up: Supine->Sit: Head of bed elevated Skilled Rationale: Verbal cues Skilled Intervention/Details: Supine->Sit: step by step sequencing cues, increased time, assist at trunk and hips Transfer Assessment: Sit to Stand Transfer Baxter Level: Sit->Stand: minimum assist (75% patient effort) Physical Assist: Sit->Stand: 2 person assist Assistive Device: Sit->Stand: gait belt, hand held assist Skilled Rationale: Verbal cues, Tactile cues, Full extension to upright positioning/posture Skilled Intervention/Details: Sit->Stand: Completed x1 from EOB, x1 from BSC, and x1 from recliner. Bilat arm in arm, tactile cues at hips and cues for full upright posture Bed-Chair Transfer Baxter Level: Bed<->Chair: moderate assist (50% patient effort) [...] Melendrez MD - 11/09/2024 8:36 AM EDT [facility] Medicine Daily Progress Note Patient: Sarah Mcguire, [...] Weight PHYSICAL EXAM Gen: A, A, NAD, AKUTAN ENT: MMM Resp: CTA & P bilat, [...] - altered mental status Sharlene Gilman MSW, DIRECTOR MEDICAL ECONOMICS-S Clock And Watch Hands Dipper, Emergency Dept. * МАРИЯ Pete - 11/07/2024 1:44 PM EDT Trauma Response Per EMS ([facility]), patient is Sarah Mcguire 41 Family is not present. EMS states daughter is en route. Pastoral presence provided. Rev. Abraham Stokes M.Div., MA, [facility] [phone] (office) Chaplains are available 27/12 by paging [phone]. 11/07/24 1318 Clinical Encounter Type Visited With Health Care Provider;Patient Visit Type Introduction Crisis Visit Trauma Pastoral Time Spent 15 min Referral Automated Page Interventions Provided Active listening;Supportive presence Plan of Care Continue Visiting PR[facility] Plan of care note* Plan of Care [...] safely navigate home and community. [facility] Plan of care note* Plan of [...] or less cues for accuracy. Outcome: Progressing [facility]06-09-2025 Plan of care note* Plan of Care - Shanna Benavides RN - 11/12/2024 9:00 AM EDT Problem: Adult Inpatient Plan of Care Goal: Optimal Comfort and Wellbeing Intervention: Provide Person-Centered Care Flowsheets (Taken 11/12/2024 0859) Trust Relationship/Rapport: care explained emotional support provided empathic listening provided questions answered [facility]06-08-2025 Plan of care note* Plan of Care [...] Progressing Problem: Mobility Impairment Goal: Optimal Mobility Baxter and Safety Outcome: Progressing Problem: Communication Impairment Goal: Effective Communication Skills Outcome: Progressing [facility]06-07-2025 Nurse Note* Nursing Notes - Greta Yoder [...] (%) 98 % 97 % 98 % [facility]06-07-2025 Plan of care note* Plan of Care [...] Progressing Problem: Mobility Impairment Goal: Optimal Mobility Baxter and Safety Outcome: Progressing [facility]06-07-2025 Nurse Note* Nursing Notes - Greta Yoder [...] Device room air room air room air [facility]06-06-2025 Plan of care note* Plan of Care [...] or less cues for accuracy. Outcome: Progressing [facility]06-06-2025 Plan of care note* Plan of Care [...] safely navigate home and community. Outcome: Ongoing [facility]06-06-2025 Plan of care note* Plan of Care [...] or less cues for accuracy. Outcome[facility] Consult note* Jagdish Galindo Jr., MD [...] cardiology Jagdish Galindo MD PGY-4 [facility] Pager #: [phone] Reason for consult - 78 yo F [...] Interviewed the patient and adult daughter at [facility], and they relate that she was [...] for the flight team. Admitted to the [facility] with neurosurgery consultation, received Kcentra at [facility]. Daughter and patient confirm the above information at bedside, adding that the word finding issues have been an ongoing recent problem. 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 Postoperatively, she has [...] word finding issue suddenly worsened while at [facility] study as above. She did not note any other neurologic deficits. S States that the noted intracranial hematoma appears to be old (I.e. a prior known hematoma collection from 2022 related to a meningioma resection completed at that time). Of note, daughter also reports that they follow with a non-[facility] leakage tester in their home town, adding that her HR has been muchlower than baseline over the past 2-4 weeks. Medications history reviewed with adult daughter, and she is currently taking amiodarone and apixaban for pAF, previously taking 2.5 mg lisinopril but not currently, currently taking doxazosin for HTN, and carvedilol 12.5 mg BID per her leakage tester. 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 Constitutional: Appears well. AKUTAN at baseline, No acute distress. Weight appropriate [...] the geriatric consult service. Pebbles Gu MD [facility] of Clinical Medicine Geriatric Medicine [id number] [facility] Work Phone: 1(772) 450-574406-06-2025 Consult note* Jagdish Galindo Jr., MD - [...] Jagdish Galindo MD PGY-4 Internal Medicine-Pediatrics [facility] Pager #: [phone] Reason for consult - 78 yo F here as level 2 trauma, acute on chronic subdural hematoma - trauma surgery recs for fatmata c/s for co-mx Admission date and reason - 11/08/24, slurred speech/word finding difficulty Primary Service - 6 PCP - Monika Venegas [facility] - The history was obtained [...] Interviewed the patient and adult daughter at [facility], and they relate that she was [...] for the flight team. Admitted to the [facility] with neurosurgery consultation, received Kcentra at OSH. Daughter and patient confirm the above information at bedside, adding that the word finding issues have been an ongoing recent problem. 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 Postoperatively, she has [...] word [facility]. She did not note any other neurologic deficits. S States that the noted intracranial hematoma appears to be old (I.e. a prior known hematoma collection from 2022 related to a meningioma resection completed at that time). Of note, daughter also reports that they follow with a non-[facility] leakage tester in their home town, adding that her HR has been muchlower than baseline over the past 2-4 weeks. Medications history reviewed with adult daughter, and she is currently taking amiodarone and apixaban for pAF, previously taking 2.5 mg lisinopril but not currently, currently taking doxazosin for HTN, and carvedilol 12.5 mg BID per her leakage tester. 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 Constitutional: Appears well. AKUTAN at baseline, No acute distress. Weight appropriate [...] the geriatric consult service. Pebbles Gu MD [facility] [employer] [facility] Geriatric Medicine [phone] * Greta Tabares MD - 11/07/2024 4:26 PM EDT TRAUMA SERVICES - TRAUMA H & P Patient Name: Sarah Mcguire 78 y.o. female Date of Evaluation: 11/07/2024 Trauma Attending: Dr. Bailey [facility]: TRAUMA LEVEL: Level 2 Trauma Inter-facility Transfer: No Sarah Mcguire is a 78 y.o. female transported to [facility] s/p slurred speech and c/f possible head strike earlier this week. Per EMS Slurred speech[facility] PMH intracranial bleed, craniotomy for [...] Admission: Handoff Called to Fellow - Pager [phone] [place] [phone] If there are any questions or concerns, please see the treatment team or page the Consult Resident #[id number] (Web Exchange, search Acute Care Surgery > [...] the patient, available family, medical records, or academic support director. I agree with resident exam, assessment and [...] geriatric consult. Signed Smiley Bailey MD MPH floodplain manager Division of Trauma, Critical Care, Burn * [...] 11/08/2024 9:48 AM EDT [facility] in this [facility] Consult note* Jagdish Galindo Jr., MD - [...] Jagdish Galindo MD PGY-4 Internal Medicine-Pediatrics [facility] Pager #: [phone] Reason for consult - 78 yo F here as level 2 trauma, acute on chronic subdural hematoma - trauma surgery recs for fatmata c/s for co-mx Admission date and reason - 11/08/24, slurred speech/word finding difficulty Primary Service - 6 PCP - Monika Venegas [facility] - The history was obtained [...] Interviewed the patient and adult daughter at [facility], and they relate that she was [...] for the flight team. Admitted to the [facility] with neurosurgery consultation, received Kcentra at OSH. Daughter and patient confirm the above information at bedside, adding that the word finding issues have been an ongoing recent problem. 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 Postoperatively, she has [...] word finding issue suddenly worsened while at [facility] study as above. She did not note any other neurologic deficits. S States that the noted intracranial hematoma appears to be old (I.e. a prior known hematoma collection from 2022 related to a meningioma resection completed at that time). Of note, daughter also reports that they follow with a non-[facility] leakage tester in their home town, adding that her HR has been muchlower than baseline over the past 2-4 weeks. Medications history reviewed with adult daughter, and she is currently taking amiodarone and apixaban for pAF, previously taking 2.5 mg lisinopril but not currently, currently taking doxazosin for HTN, and carvedilol 12.5 mg BID per her leakage tester. 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 Constitutional: Appears well. AKUTAN at baseline, No acute distress. Weight appropriate [...] the geriatric consult service. Pebbles Gu MD [facility] Geriatric Medicine [phone] * Greta Tabares MD - 11/07/2024 4:26 PM EDT TRAUMA SERVICES - TRAUMA H & P Patient Name: Sarah Mcguire 78 y.o. female Date of Evaluation: 11/07/2024 Trauma Attending: Dr. Bailey [facility]: TRAUMA LEVEL: Level 2 Trauma Inter-facility Transfer: Bee Mcguire is a 78 y.o. female transported to [facility] s/p slurred speech and c/f possible [...] Admission: Handoff Called to Fellow - Pager [phone] [place] [phone] If there are any questions or concerns, please see the treatment team or page the Consult Resident #[id number] (Web Exchange, search Acute Care Surgery > [...] the patient, available family, medical records, or academic support director. I agree with resident exam, assessment and [...] geriatric consult. Signed Smiley Bailey MD MPH floodplain manager Division of Trauma, Critical Care, Burn * [...] needed for Mild Pain. 12/06/22 Kristin Lara APRN-SUPERVISOR MACHINE SETTER AMIOdarone 200 MG tablet 01/07/23 Historical Provider apixaban (Eliquis) 5 MG tablet 01/01/23 Historical Provider Atorvastatin 10 MG tablet Take 1 tablet by mouth at bedtime. Historical Provider carveDILOL 12.5 MG tablet 1 tablet by Per NG tube route every 12 hours. 12/06/22 01/05/23 Kristin Lara, HYGIENE COORDINATOR-SUPERVISOR MACHINE SETTER Doxazosin 2 MG tablet Take 1 tablet [...] 9:48 AM EDT [facility] Discharge instructions* Discharge Instructions* Shannon Werner RN - 11/09/2024 9:18 AM EDT Patient Experience Survey Reminder You may receive a survey in the mail within a few weeks regarding your hospitalization. This helps us to improve the care and services we provide at [facility]. We truly appreciate you taking the time to fill this out. We particularly welcome any specific comments you may have (good or bad!) regarding [facility] so that we may use them to continue to strive towards excellence for our patients. documented in this encounterOS[facility] Discharge instructions* Discharge Instructions* Shannon Werner RN - 11/09/2024 9:18 AM EDT Patient Experience Survey Reminder You may receive a survey in the mail within a few weeks regarding your hospitalization. This helps us to improve the care and services we provide at [facility]. We truly appreciate you taking the time to fill this out. We particularly welcome any specific comments you may have (good or bad!) regarding your experience[facility] so that we may use them to continue to strive towards excellence for our patients. documented in this encounterOSU [facility] [place] Procedure note* FABY Jacques - 11/09/2024 8:56 [...] this period of recording. Brittaney Ferraro MD [facility] Department of Neurology and Epilepsy [facility] Work Phone: 1([phone]) 183-622606-06-2025 Procedure note* FABY Jacques - 11/09/2024 8:56 [...] this period of recording. Brittaney Ferraro MD [facility] Department of Neurology and Epilepsy [facility] documented in this encounterOSU [facility] [place] Procedure note* FABY Jacques - 11/09/2024 8:56 [...] this period of recording. Brittaney Ferraro MD [facility] Department of Neurology and Epilepsy [facility] documented in this encounterK[facility]06-[facility]-2025 Plan of care note* Plan of Care - Nimo Chopra MD [...] with questions. Nimo Chopra MD, Neurosurgery NS1 ([id number]) [facility] Work Phone: 1(862) 818-660506-05-2025 Plan of care note* Plan of Care - Joce Calvo RN - 11/08/2024 9:06 PM EDT Problem: Adult Inpatient Plan of Care Goal: Plan of Care Review Outcome: Progressing Goal: Patient-Specific Goal (Individualized) Outcome: Progressing Goal: Absence of Hospital-Acquired Illness or Injury Outcome: Progressing Goal: Optimal Comfort and Wellbeing Outcome: Progressing Goal: Readiness for Transition of Care Outcome: Progressing [facility] Nurse Note* Nursing Notes - Shelby Mae RN - 11/08/2024 4:46 PM EDT Images from the original note were not included. On admission to [facility], from ED a dual RN initial assessment of skin condition was performed by MICAH Rivera and Teresa Long RN. Skin Assessment: Skin not within defined limits. - Photo taken and uploaded into notes in IHIS: Yes Brent Score: 16 LDA Added:No Shelby Mae RN Right heel blanchable [facility] History and physical note* JESSIE Bone [facility] - 11/08/2024 2:23 PM EDT Hospital Medicine Admission History & Physical Patient: Sarah Mcguire, 1945, [id number] Physician: JESSIE Bone [facility], Attending Physician Date of face to face [...] keppra BID. Plan to admit to [facility]. REVIEW OF SYSTEMS Constitutional (- fever, chills, [...] no ST segment changes Signed, JESSIE Bone [facility] of Internal Medicine Division of Hospital Medicine [facility] History and physical note* JESSIE Bone [facility] - 11/08/2024 2:23 PM EDT Hospital Medicine Admission History & Physical Patient: Sarah Mcguire, 1945, [id number] Physician: JESSIE Bone [facility], Attending Physician Date of face to face [...] keppra BID. Plan to admit to [facility]. REVIEW OF SYSTEMS Constitutional (- fever, chills, [...] no ST segment changes Signed, JESSIE Bone [facility] of Internal Medicine Division of Hospital Medicine [facility] documented in this encounterOSU [facility] History and physical note* JESSIE Bone [facility] - 11/08/2024 2:23 PM EDT Hospital Medicine Admission History & Physical Patient: Sarah Mcguire, 1945, [id number] Physician: JESSIE Bone [facility], Attending Physician Date of face to face [...] keppra BID. Plan to admit to [facility]. REVIEW OF SYSTEMS Constitutional (- fever, chills, [...] Left; Surgeon: Ernie Kincaid MD; [facility] BREAST LUMPECTOMY [...] no ST segment changes Signed, JESSIE Bone [facility] of Internal Medicine Division of Hospital Medicine [facility] documented in this encounterKettering Health06-05-2025 Emergency department Note* Ann Diaz RN - 11/08/2024 12:07 PM EDT Pt has been germania- HR 42-49. Dr Johnson aware. No intervention as long at pt is saturating appropriately [facility]06-05-2025 Emergency department Note* Ann Diaz RN - [...] eNCOUnter Patient: Sarah Mcguire : 1945 MR#: [id number] Primary Care Provider: Monika Venegas Date of Exam: 11/07/2024 CHIEF COMPLAINT No chief complaint on file. HPI Sarah Mcguire is a 78 y.o. 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 Brief History: Patient had slurred speech, unsteady gait while at [facility] [employer] [facility]. 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 Name: Octavio Pinon RPH Phone #: [phone] Date/Time: 11/07/2024 1:29 PM * Ignacio De [...] (Oral) Resp 20 SpO2 98% Smoking StatusNever [place] Coma Scale Best Eye Response: 4-->(E4) spontaneous Best Motor Response: 6-->(M6) obeys commands Best Verbal Response: 5-->(V5) oriented [place] Coma Scale Score: 15 Primary Assessment Airway [...] EKG Interpretation Rhythm: normal sinus Rate: normal [place]: normal Ectopy: none Conduction: normal ST Segments: [...] 0.69 (L) 1.16 - 3.51 K/uL Abs [place] Auto 0.62 0.22 - 0.87 K/uL Abs [...] to Level [facility] Emergency Contacts: Alexsandra, elba [phone] Per EMS patient's daughter is en route to [facility]. SW will be available for support as needed while patient is in the ED. Edy BLOOD, [facility] Medical Social Work * Minna Swenson RN - 11/07/2024 1:05 PM EDT Patient arrives to trauma bay now. Slurred speech, unsteady gait while at [facility]. PMH intracranial bleed, craniotomy for tumor (2022). 200/60 on EMS arrival. Improved to 170 en route. [facility] 1 at OSH but 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 * Minna Swenson RN - 11/07/2024 12:53 PM EDT Patient roomed for ordering purposes. * Nailni Barnett RN - 11/07/2024 11:40 AM EDT Neuro surg provider paged at this time to clarify BP parameters at this time. * Nalini Barnett RN - 11/07/2024 11:00 AM EDT Neuro surg provider paged at this time to clarify BP parameters documented in this [facility]06-05-2025 Emergency department Note* Ann Diaz RN - [...] eNCOUnter Patient: Sarah Mcguire : 1945 MR#: [id number] Primary Care Provider: Monika Venegas Date of Exam: 11/07/2024 CHIEF COMPLAINT No chief complaint on file. HPI Sarah Mcguire is a 78 y.o. 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 Name: Octavio Pinon RPH Phone #: [phone] Date/Time: 11/07/2024 1:29 PM * Ignacio De [...] obeys commands Best Verbal Response: 5-->(V5) oriented [place] Coma Scale Score: 15 Primary Assessment Airway [...] EKG Interpretation Rhythm: normal sinus Rate: normal [place]: normal Ectopy: none Conduction: normal ST Segments: [...] 0.69 (L) 1.16 - 3.51 K/uL Abs [place] Auto 0.62 0.22 - 0.87 K/uL Abs [...] to Level 2 Trauma brought [facility] by [employer] [employer] after patient fell. Emergency Contacts: Alexsandra, child [phone] Per EMS patient's daughter is en route to [facility]. SW will be available for support as needed while patient is in the ED. Edy BLOOD, [facility] Medical Social Work * Minna Swenson RN - 11/07/2024 1:05 PM EDT Patient arrives to trauma bay now. Slurred speech, unsteady gait while at [facility]. [facility] intracranial bleed, craniotomy for tumor (2022). 200/60 [...] to clarify BP parameters documented [facility] this [facility] Emergency department Note* Ann Diaz RN - 11/08/2024 8:[address] Johnson, pt is allowed to eat. Pt given breakfast. Pt passed bedside swallow. [facility]06-05-2025 Emergency department Note* Nalini Barnett RN - 11/08/2024 6:15 AM EDT Pt incontinent at this time. Total linen change, new brief and purwick in place. [facility]06-04-2025 Emergency department Note* Tiff Rodriguez RN - 11/07/2024 6:05 PM EDT Pt states dull pain across forehead that is new, no changes in neuro exam. Md notified [facility]06-04-2025 Consult note* Greta Tabares MD - 11/07/2024 4:26 PM EDT TRAUMA SERVICES - TRAUMA H & P Patient Name: Sarah Mcguire 78 y.o. female Date of Evaluation: 11/07/2024 Trauma Attending: Dr. Leo GARDNER: TRAUMA LEVEL: Level 2 Trauma Inter-facility Transfer: Bee Mcguire is a 78 y.o. female transported to [facility] s/p slurred speech and c/f possible head strike earlier this week. Per EMS Slurred speech, [facility]. PMH intracranial bleed, craniotomy for [...] Left; Surgeon: Ernie Kincaid MD; [facility] BREAST LUMPECTOMY [...] Admission: Handoff Called to Fellow - Pager [phone] [place] [phone] If there are any questions or concerns, please see the treatment team or page the Consult Resident #[id number] (Web Exchange, search Acute Care Surgery > [...] the patient, available family, medical records, or academic support director. I agree with resident exam, assessment and [...] geriatric consult. Signed Smiley Bailey MD MPH floodplain manager Division of Trauma, Critical Care, Burn [facility] Work Phone: 1(251) 268-630706-04-2025 Consult note* Ernie Bowens MD - 11/07/2024 [...] in the context ofword find difficulties at [facility]. [facility] CTH showed a 1.2 [...] < 160 Staff: Dr. Kincaid Covering: NS1 ([id number]) ## neurosurgery coverage changes at 0530/1730; if 0530 or 1730 has passed since original consult note placed, please page covering pager above ## Complexity. Hyponatremia - Secondary to fluid shifts. Monitor. Hypocalcemia - Continue to monitor and replete. Wound Documentation Any conditions listed below are present on admission unless otherwise specified. . Cosigned by Ernie Kincaid MD at 11/08/2024 9:48 AM EDT [facility] Work Phone: 1(705) 181-911706-04-2025 NoteAcute Coronary Syndrome (ACS): Initial Evaluation and Management: [email or web address] pointe surgical hospitalClear Blue [email or web address]/[email or web address]/[email or web address]/[email or web address]/Acute%20Coronary%20Sy ndrome.pdf#search=troponin [facility]06-04-2025 NoteAcute Coronary Syndrome (ACS): Initial Evaluation and Management: [email or web address]%20Coronary%20Sy [email or web address]#search=troponin [facility]06-04-2025 Emergency department Note* Minna Swenson RN - 11/07/2024 1:31 PM EDT Transport to CT on monitor with RN, Resident. [facility]06-04-2025 Physician Emergency department Note* Cindy Coffey MD - 11/07/2024 1:30 PM EDT eMERGENCY dEPARTMENT eNCOUnter Patient: Sarah Mcguire : 1945 MR#: [id number] Primary Care Provider: Monika Venegas Date of Exam: 11/07/2024 CHIEF COMPLAINT No chief complaint on file. HPI Sarah Mcguire is a 78 y.o. 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 Cindy Coffey MD Resident 11/07/24 1654 [facility] Work Phone: 1(643) 986-449706-04-2025 Emergency department Note* Lopez Farnsworth RN - 11/07/2024 1:30 PM EDT Bed: E021 Expected date: Expected time: Means of arrival: Comments: 34 [facility]06-04-2025 Emergency department Note* Octavio Pinon [facility] - 11/07/2024 1:28 PM EDT Department of Pharmacy - Trauma Note Patient: Sarah Mcguire Room/Bed: E034/E034 Level 2 trauma s/p Fall with SDH found at OSH Medications received prior to arrival: Balfaxar 2500 units @1130 Prophylactic Antibiotics: n/a Tetanus: N/A Patient is on eliquis. Please feel free to contact me with any further questions. Name: Octavio Pinon KATERINE Phone #: [phone] Date/Time: 11/07/2024 1:29 PM [facility] Physician Emergency department Note* Ignacio De La [...] EKG Interpretation Rhythm: normal sinus Rate: normal [place]: normal Ectopy: none Conduction: normal ST Segments: [...] 0.69 (L) 1.16 - 3.51 K/uL Abs [place] Auto 0.62 0.22 - 0.87 K/uL Abs [...] La Garza Sr., MD, PhD 11/07/24 1628 [facility]06-04-2025 Emergency department Note* Minna Swenson RN - 11/07/2024 1:25 PM EDT Cardene 5 mg/hr started now. [facility]06-04-2025 Emergency department Note* KEY Fuentes - 11/07/2024 1:18 PM EDT SW responded to Level 2 Trauma brought in by [facility] after patient fell. Emergency Contacts: Alexsandra, child [phone] Per EMS patient's daughter is en route to [facility]. SW will be available for support as needed while patient is in the ED. Edy BLOOD, [facility] Medical Social Work [facility]06-04-2025 Emergency department Note* Minna Swenson RN - 11/07/2024 1:05 PM EDT Patient arrives to trauma bay now. Slurred speech, unsteady gait while at [facility] study. PMH intracranial bleed, craniotomy for tumor (2022). 200/60 on EMS arrival. Improved to 170 en route. NIH 1 at OSH but 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 [facility]* Minna Swenson RN - 11/07/2024 12:53 PM EDT Patient roomed for ordering purposes. [facility]06-04-2025 Emergency department Note* Nalini Barnett RN - 11/07/2024 11:40 AM EDT Neuro surg provider paged at this time to clarify BP parameters at this time. [facility]06-04-2025 Radiology Diagnostic study note [facility] Imaging Services [address] [place] [address] STROKE Brain/Head without Cont MR#: [id number] Acct: [id number] Name: SARAH MCGUIRE Rep #: [id number] : 1945 F 78 From: Abbe Gonzalez MD PCP: Dr. Monika Venegas MD Status: REG ER Study:STROKE Brain/Head without Cont Date of Exam: 11/07/24 Exam# [id number] Ordering Dr: Mario Anand MD PROCEDURE: STROKE [...] areas infarction, of uncertain age. Reading Location: [address] CC: Dr. Monika Venegas MD; Dr. Dallas Anand MD ~ Litigation Support Analyst: Signed [facility]06-04-2025 Emergency department Note* Nalini Barnett RN - 11/07/2024 11:00 AM EDT Neuro surg provider paged at this time to clarify BP parameters [facility]04-24-2025 [facility] [address] [place] [address] Emergency Department Summary 09/27/24 MR#: [id number] Acct: [id number] Name: SARAH MCGUIRE Rep #:[id number] : 1945 78 From: Hayden Sadler DO [...] her surgery and from the ride from [facility] to [place] and December 2022 she notedthat she has had some numbness and tingling periodically in her left arm but today this felt different therefore her daughter brought her here for further evaluation management. She states that she was sitting eating breakfast when this occurred. Patient states that she is anxious about her symptoms. She states that she is on Eliquis. [facility] Medical History Mitral valve stenosis, non-rheumatic Cerebrovascular [...] follow commands knew that she was at [facility] 2024 Skin: Warm, dry, intact Const [...] processes. Did discuss his case with on-call leakage tester Dr. Calderon who states that she canfollow-up [...] 78.7 H Lymph % (Auto) 10.8 L [place] % (Auto) 8.3 Eos % (Auto) 1.1 [...] No acute abnormality is seen. Reading Location: [facility] Discharge Plan Triage Chief Complaint: Chest [...] 4RF Primary Care Provider: Monika Venegas Referrals: oMnika Venegas MD [Primary Care Provider] - Activity Restrictions/Additional Instructions: Follow-up with your primary care physician at your scheduled appointment tomorrow. Return with worsening symptoms or any other concerns. Print Language: Canadian Disposition Disposition: Home, Self Care What to do if you have Problems For any increased pain, shortness of breath, bleeding, nausea or vomiting, chestpain, or any unexpected problems, contact your Primary Care Provider. Call [facility] ([phone]) or report tothe closest Emergency Room. Call 911 if necessary. 09/27/24 1330 Cosigner Signature (if applicable): CC: Dr. Monika Venegas MD ~ Signed [facility]04-24-2025 Radiology Diagnostic study note [facility] Imaging Services [address] [place] [address] Chest PA and Lateral MR#: [id number] Acct: [id number] Name: SARAH MCGUIRE Rep #: [id number] : 1945 F 78 From: Heri Bradshaw MD PCP: Dr. Monika Venegas MD Status: REG ER Study:Chest PA and Lateral Date of Exam: 09/27/24 Exam# [id number] Ordering Dr: Bret Sadler DO PROCEDURE: CHEST [...] No acute abnormality is seen. Reading Location: [place] [address] CC: Dr. Monika Venegas MD; Dr. Hayden Sadler, DO ~ Litigation Support Analyst: Signed [facility]02-05-2025 History of Present illness Narrative* Annelise [...] within treatment site. Karen Trejo CNP notified Annelies Rogers RN * Annelise Rogers RN - [...] YOUR HEALTH TODAY= 65% * Karen Trejo APRN-SUPERVISOR MACHINE SETTER - 07/11/2024 11:00 AM EST RADIATION ONCOLOGY [...] XII are intact grossly and symmetrically EXCEPT AKUTAN in the left ear. No focal neurologic [...] to Meningioma of scalp 60-75Gy in 30fx kxhopnvwb63/11/23. She presents today with her daughter for [...] this visit by the LOIS. LOIS Clarke, [facility] Department of Radiation Oncology Pager #[phone] * Nimo Bueno MD - 07/11/2024 11:00 [...] with the discharge instructions. documented in this [facility]02-05-2025 Instructions* Patient Instructions* Annelise Rogers RN - 07/11/2024 11:00 AM EST It was a pleasure to see you today! We will contact you if there are any concerning findings on the final read of your MRI completed today. Please call our office if you develop any new or worsening symptoms in the interim. [phone]. Please schedule a MRI brain prior to follow up with Dr. Bueno in 4 months. Referral placed for dermatology. documented in this [facility]10-09-2024 NoteEXAM: NUC PET NEUROENDOCRINE, 03/14/2024 10:34 AM [...] residual/recurrent disease cannot be entirely excluded. [facility]10-09-2024 History of Present illness Narrative * Kristine Blue APRN-SUPERVISOR MACHINE SETTER - 03/14/2024 3:00 PM EDT RADIATION ONCOLOGY [...] Bueno, attending physician. Kristine Blue APRN-AGNIESZKA, pager [phone] * Nimo Bueno MD - 03/14/2024 3:00 [...] with the discharge instructions. Nimo Bueno MD Nuclear Monitoring Technician Department of Radiation Oncology Pager: [phone] Office: [phone] * Annelise Rogers RN - 03/14/2024 3:00 PM EDT Patient seen independently by provider. Anenlise Rogers RN * Annelise Rogers RN - [...] HEALTH TODAY= 75% documented in this [facility] Instructions* Patient Instructions* Annelise Rogers RN - 03/14/2024 3:00 PM EDT Please return in 3 month MRI and follow up with Dr. Bueno documented in this [facility] History of Present illness Narrative* Annelise Rogers [...] Dr. Bueno, attending physician. Kristine ABREU, pager [phone] * Nimo Bueno MD - 11/29/2023 2:30 [...] with Tylenol), balance difficulty (plan to restart MS/OT this week), dizziness with position change, left [...] with the discharge instructions. Nimo Bueno MD Nuclear Monitoring Technician Department of Radiation Oncology Pager: [phone] Office: [phone] [facility]-25-2024 Instructions* Patient Instructions* Kristine Blue APRN-SUPERVISOR MACHINE SETTER - 11/29/2023 2:30 PM EDT It was a pleasure to see you today! Please call our office if you develop any new or worsening symptoms in the interim. [phone]. Please schedule a MRI Brain and Neuroendocrine PET scan prior to follow up with Dr. Bueno in 3 months. documented in [facility]12-14-2023 History of Present illness Narrative* Cherrie Mendoza [...] developed with Dr. Bueno, attending physician. Kristine MEDLEYSUPERVISOR MACHINE SETTER, pager [phone] Radiation Oncology Attending Addendum: I saw and independently examined this patient today on 05/19/2023. I discussed my findings and the therapeutic plan with Radiation Oncology BEVERAGE HOST, Kristine. I agree with her history, physical [...] should any questions arise. Nimo Bueno MD Nuclear Monitoring Technician Department of Radiation Oncology Pager: [phone] Office: [phone] * Cherrie Mendoza RN - 05/19/2023 2:30 [...] did not fill out documented in this [facility]12-14-2023 Instructions* Patient Instructions* LOIS Middleton - 05/19/2023 2:30 PM EST It was a pleasure to see you today! Please call our office if you develop any new or worsening symptoms in the interim. [phone]. Please schedule a MRI prior to follow up with Dr. Bueno in 3 months. documented in this [facility]10-10-2023 History of Present illness Narrative* Annelise Rogers [...] grossly unchanged from prior examination, no focal DIRECTOR OF CULTURE findings. Labs: Lab Results Component Value Date [...] radiation therapy as planned. Nimo Bueno MD [facility] Department of Radiation Oncology documented in this [facility]10-10-2023 Instructions* Patient Instructions* Annelise Rogers RN - 03/15/2023 10:00 AM EDT Please return in 2 months with repeat brain MRI and follow up with Dr. Bueno on same day! (Patientcannot do Mondays) documented in this [facility]10-03-2023 History of Present illness Narrative* Annelise Rogers [...] planned. Ameya Singh MD documented in this [facility]09-26-2023 History of Present illness Narrative* Annelise Rogers [...] planned. Julian Siddiqui MD Radiation Oncology Resident Pager:[phone] On Treatment Visit Addendum: I saw and [...] radiation therapy as planned. Nimo Bueno MD Nuclear Monitoring Technician Department of Radiation Oncology [facility] documented in this [facility]09-12-2023 History of Present illness Narrative* Annelise Rogers [...] planned. Julian Siddiqui MD Radiation Oncology Resident Pager:[phone] On Treatment Visit Addendum: I saw and [...] radiation therapy as planned. Nimo Bueno MD Nuclear Monitoring Technician Department of Radiation Oncology [facility] documented in this [facility]09-05-2023 History of Present illness Narrative* Annelise Rogers [...] compression stockings Nimo Bueno MD notified. Annelise Rogesr RN * Nimo Bueno MD - 02/08/2023 [...] grossly unchanged from prior examination, no focal DIRECTOR OF CULTURE findings. Labs: Lab Results Component Value Date [...] radiation therapy as planned. Nimo Bueno MD [facility] Department of Radiation Oncology documented in this [facility]OS[facility] History of Present illness Narrative* Annelise Rogers [...] Annelise Rogers RN documented in this encounterOS[facility]-2023 Instructions* Patient Instructions* Annelise Rogers RN - [...] Bueno will see you each TUESDAY at [facility] after your treatment for your [...] for a ticket each day. This includes battery wrecker operator parking. You will be given information on reserved parking in the [place] garages. You will be given a special wrist band today that you can use to check in for your treatments. You do not need to go to registration before each radiation treatment. If you have appointments with anyother department at [facility], you must go to registration prior to those appointments. Please call the radiation clinic at [phone] with any questions or concerns. You can also contact your physician via My Chart with any non-urgent issues. My Chart messages are only reviewed during regular business hours. documented in this encounterK[facility]08-16-2023 History of Present illness Narrative* Annelise Rogers [...] 77 y.o. 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 Nimo Bueno MD Nuclear Monitoring Technician Department of Radiation Oncology Pager: [phone] Office: [phone] documented in this [facility]07-17-2023 Progress note Author Jo-Ann Arias [facility] December 20, 2022 3:46pm Note Date/Time December 20, 2022 12:1 3pm [facility] Medical Records Department [address] [place] [address] Progress Note 12/20/22 1208 MR#: [id number] Acct: [id number] Name: SARAH MCGUIRE Rep #:[id number] : 1945 77 From: Jo-Ann Arias DO PCP: Dr. Monika Venegas MD Status:ADM IN Location: [place] [address] Subjective Subjective Afebrile VSS Maintaining appropriate oxygen [...] cough suppressant. Charges/Coding Visit Charges Inpatient E&M: 50435 Subs Hosp L2 12/20/22 1528 <Electronically signed [...] Signature (if applicable): Date cc: ~* Signed [facility] Work Phone: 1(934) 708-723207-15-2023 Progress note Author Jo-Ann Arias [facility] December 18, 2022 11:48am Note Date/Time December 17, 2022 6:46 pm [facility] Medical Records Department [address] [place] [address] Progress Note 12/17/22 1844 MR#: [id number] Acct: [id number] Name: SARAH MCGUIRE Rep #:[id number] : 1945 77 From: Jo-Ann Arias DO PCP: Dr. Monika Venegas MD Status:ADM IN Location: [place] [address] Subjective Subjective Afebrile VSS Maintaining appropriate oxygen [...] on Tuesday. Charges/Coding Visit Charges Inpatient E&M: 38000 Subs Hosp L1 12/18/22 1148 <Electronically signed by Jo-Ann Arias DO> Jo-Ann Arias DO Cosigner Signature (if applicable): CC: ~ Signed [facility] Work Phone: 1(508) 993-145307-15-2023 Progress note Author [facility] December 18, 2022 11:42am Note Date/Time December 16, 2022 12:2 6pm [facility] Medical Records Department [address] [place] [address] Progress Note 12/16/22 1222 MR#: [id number] Acct: [id number] Name: SARAH MCGUIRE Rep #:[id number] : 1945 77 From: Jo-Ann Arias DO PCP: Dr. Monika Venegas MD Status:ADM IN Location: [place] [address] Subjective Subjective Sarah was seen on team [...] with meals. Charges/Coding Visit Charges Inpatient E&M: 65752 Subs Hosp L2 12/18/22 1142 <Electronically signed by Jo-Ann Arias DO> Jo-Ann Arias DO Cosigner Signature (if applicable): CC: ~ Signed [facility] Work Phone: 1(927) 224-432707-15-2023 Progress note Author [facility] December 18, 2022 11:30am Note Date/Time December 13, 2022 10:5 9am [facility] Medical Records Department [address] [place] [address] Progress Note 12/13/22 1053 MR#: [id number] Acct: [id number] Name: SARAH MCGUIRE Rep #:[id number] : 1945 77 From: Jo-Ann Arias DO PCP: Dr. Monika Venegas MD Status:ADM IN Location: [place] [address] Subjective Subjective Afebrile VSS-systolic is mildly elevated [...] precautions discontinue. Charges/Coding Visit Charges Inpatient E&M: 57795 Subs Hosp L2 12/18/22 1130 <Electronically signed by Jo-Ann Arias DO> Jo-Ann Arias DO Cosigner Signature (if applicable): CC: ~ Signed [facility] Work Phone: 1(388) 108-457807-07-2023 Progress note Author [facility] December 10, 2022 8:52am Note Date/Time December 10, 2022 8:53a m [facility] Medical Records Department [address] [place] [address] Progress Note 12/10/22 0833 MR#: [id number] Acct: [id number] Name: SARAH MCGUIRE Rep #:[id number] : 1945 77 From: Jo-Ann Arias DO PCP: Dr. Monika Venegas MD Status:ADM IN Location: [place] [address]1 Subjective Subjective Sarah was seen yesterday on [...] on Tuesday Charges/Coding Visit Charges Inpatient E&M: 20416 Subs Hosp L2 12/10/22 0852 <Electronically signed by Jo-Ann Arias DO> Jo-Ann Arias DO Cosigner Signature (if applicable): CC: ~ Signed [facility] Work Phone: [phone]) 741-823307-07-2023 History and physical note Author [facility] December 10, 2022 8:33am Note Date/Time December 08, 2022 4:34p m [facility] Medical Records Department [address] [place] [address] Post Admission Physician Radhika 12/08/22 1632 MR#: [id number] Acct: [id number] Name: SARAH MCGUIRE Rep #:[id number] : 1945 77 From: Jo-Ann Arias DO PCP: Dr. Monika Venegas MD Status:ADM IN Location: [place] [address] Admission Information Primary Diagnosis:: Physical debility secondary [...] Skin integrity and Medication Management Patient needs Product Expert/ Case Management for: Discharge Planning, Arranging Home [...] Cosigner Signature (if applicable): CC: ~ Signed [facility] Work Phone: 1(476) 937-295707-05-2023 History and physical note Author Jo-Ann Arias [facility] December 08, 2022 4:32pm Note Date/Time December 07, 2022 10:06 am [facility] Medical Records Department [address] [place] [address] History & Physical Exam 12/07/22 0946 MR#: [id number] Acct: [id number] Name: SARAH MCGUIRE Rep #:[id number] : 1945 77 From: Jo-Ann Ivan Arias DO PCP: Dr. Monika Venegas MD Status:ADM IN Location: [facility]-7 HPI - General General Date of Admission: [...] and recommendation for acute inpt rehab at [place] was made. Sarah was transferred to the acute inpt rehab unit at [facility] on 12/06/22 for 3 hours of [...] severe stenosis of the proximal left P2 PHYSICIAN/INTERNIST. There were several small foci of acute [...] Needs a 30 day event monitor at [place]. Afebrile VSS -blood pressures have ranged from 124/55 to 157/61 since admission to rehab. Heart rate has ranged from 79-102. Maintaining appropriate oxygen saturation on RA -97 to 99%. Oral intake is good. She ate 75 to 100% of her breakfast today. Oral intake [id number] since admission and this is in less [...] 63. Triglycerides were within normal limits. [facility] Medical History (Updated 12/08/22 @ 16:23 by [...] a supplement. Charges/Coding Visit Charges Inpatient E&M: 79087 Init Hosp L3 12/08/22 1632 <Electronically signed by Jo-Ann Arias DO> Cosigner Signature (if applicable): CC: Dr. Monika Venegas MD; Dr. 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 1. HYPERTENSION- diangosed 6+yrs ago and has been controlled on current meds. BP Readings from Last 3 Encounters: 10/08/22 128/80 09/30/22 196/72 2. HYPERLIPIDEMIA - stable on statins for 6+ yrs. PLAN: No further cardiac testing needed. CARDIAC TESTING: EKG (10/08/2022): sinus bradycardia, HR:57, normal MS interval, no acute abnormality. PULMONARY Social History [...] 1 capsule by mouth daily every morning. Ifbhdbexh-Qvsfksrilfu-Jts D (OSTEO BI-FLEX ONE PER DAY PO) [...] URINALYSIS REFLEX TO CULTURE PERFORMABLE EXTRA MICRO MS ECG, CLINIC PERFORMED Lab A/P - Labs [...] proceed with scheduled surgery. Qian Randle MD [facility] [address] [facility] Review of Systems (OSUROS) Review of [...] is nervous/anxious. 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 1. HYPERTENSION- diangosed 6+yrs ago and has been controlled on current meds. BP Readings from Last 3 Encounters: 10/08/22 128/80 09/30/22 196/72 2. HYPERLIPIDEMIA - stable on statins for 6+ yrs. PLAN: No further cardiac testing needed. CARDIAC TESTING: EKG (10/08/2022): sinus bradycardia, HR:57, normal MS interval, no acute abnormality. PULMONARY Social History [...] 1 capsule by mouth daily every morning. Awaxsdpjv-Xehyghzijgk-Wse D (OSTEO BI-FLEX ONE PER DAY PO) [...] URINALYSIS REFLEX TO CULTURE PERFORMABLE EXTRA MICRO MS ECG, CLINIC PERFORMED Lab A/P - Labs [...] proceed with scheduled surgery. 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 - [place] your teeth and rinse your mouth the [...] Information Management Department for all records requests. [phone] [phone] AVS/RF documented in this encounterU [facility] History of Present illness Narrative* Emily Veras [...] Nursing Assessment: Physical Exam * Shaye Weston, HYGIENE COORDINATOR-SUPERVISOR MACHINE SETTER - 09/30/2022 12:00 PM EDT Images from the original note were not included. [facility] Neurosurgery Oncology Clinic Dr. Ernie Kincaid MD Professor, Department of Neurosurgery Director of Neurosurgical Oncology [facility] and [place] [address] NEW PATIENT VISIT NOTES Leon Mcguire is a 76 y.o. female with PMH of HTN, HDL, no cancer history who was recently diagnosed with a Left frontotemporal skull lesion that presents to [facility] Oncology [facility] for consultation. Pt felt [...] tablet Take 1 tablet by mouth daily. Srakxucyz-Xormxlicioi-Txu D (OSTEO BI-FLEX ONE PER DAY PO) [...] cancer history who presents today to [facility] for a consultation related to [...] of the clinic visit. The nurse practitioner/physician pest controller assistant and I have spoken with the patient and provided written and verbal instructions for the patient. The above note has been reviewed and I agree with the assessment and plan. Ernie Kincaid MD documented in this encounterKettering Health04-27-2023 Instructions* Patient Instructions* Hansa Nice RN - 09/30/2022 12:00 PM EDT We are here to assist you through your care at [facility] and Noman Villegas [facility]! Your Care Team from today's visit included: Neurosurgeon- Dr. Santosh Kincaid Nurse Practitioner- Shaye Weston APRN-SUPERVISOR MACHINE SETTER Primary Nurse - ROSETTA Hall, RN The Neurosurgery clinic and scheduling staff can be reached at [phone]. Please call if you develop new or worsening symptoms, also with any additional questions regarding your visit today or if you need to contact the doctor. You will speak with a management manager, who will take a message and forward [...] weekends, and/or during a holiday please call [phone] and speak with the after-hours service. You will be connectedto the neurosurgery resident flooring professional. New or worsening neurological symptoms can include, but are not limited to: weakness, confusion, difficulty walking, vision/hearing/speech changes, seizures or extremity tremors, and persistent headaches. If it is an emergency you will need to go to your local ER. Ask them to fax your records to us so that we can update our team, fax number [phone]. If you experience seizures affecting the whole [...] our office. Documentation can be faxed to [phone]. Your feedback is important to our team. [...] condition. You will receive this questionnaire via [employer]. Please complete so your providers at [facility] can better help you! documented in this encounter[facility] summary Author Hayden Sadler [facility] Note Date/Time September 27, 2024 1:3 0pm [facility] Medical Records Department [address] [place] [address] Emergency Department Summary 09/27/24 MR#: [id number] Acct: [id number] Name: SARAH MCGUIRE Rep #:[id number] : 1945 78 From: Hayden Sadler DO [...] her surgery and from the ride from [facility] to [place] and December 2022 she notedthat she has had some numbness and tingling periodically in her left arm but today this felt different therefore her daughter brought her here for further evaluation management. She states that she was sitting eating breakfast when this occurred. Patient states that she is anxious about her symptoms. She states that she is on Eliquis. [facility] Medical History Mitral valve stenosis, non-rheumatic Cerebrovascular [...] follow commands knew that she was at [facility] 2024 Skin: Warm, dry, intact Const [...] processes. Did discuss his case with on-call leakage tester Dr. Calderon who states that she canfollow-up [...] 78.7 H Lymph % (Auto) 10.8 L Montague % (Auto) 8.3 Eos % (Auto) 1.1 [...] No acute abnormality is seen. Reading Location: [place] [address] Discharge Plan Triage Chief Complaint: Chest Pain [...] symptoms or any other concerns. Print Language: Canadian Disposition Disposition: Home, Self Care What to do if you have Problems For any increased pain, shortness of breath, bleeding, nausea or vomiting, chestpain, or any unexpected problems, contact your Primary Care Provider. Call [facility] ([phone]) or report to the closest Emergency Room. Call 911 if necessary. 09/27/24 1330 <Electronically signed by Hayden Sadler DO> Cosigner Signature (if applicable): CC: Dr. Monika Venegas MD ~ Signed [facility] Work Phone: Evaluation noteNo assessment information available [facility] Work Phone: Evaluation note* Diagnosis Onset Date Resolution Status Scalp lesion chronic Scalp lesion chronic [facility] Work Phone: Evaluation note* Diagnosis Skull mass- Primary Disorder of bone and cartilage, unspecified [facility] Diagnosis Preop exam for internal medicine Other specified pre-operative examination Skull mass Disorder of bone and cartilage, unspecified Essential hypertension Unspecified essential hypertension Hyperlipidemia, unspecified hyperlipidemia type Skull lesion Disorder of bone and cartilage, unspecified [facility] Diagnosis Preop exam for internal medicine- [...] cartilage, unspecified [facility] Diagnosis Skull mass Disorder of bone and cartilage, unspecified Skull lesion Disorder of bone and cartilage, unspecified [facility] Diagnosis Onset Date Resolution Status Scalp lesion chronic Scalp lesion chronic Acute blood loss anemia acut e C. difficile enteritis acute Cerebrovascular disease acut e Excessive cerumen in both ear canals acute H/O craniotomy acute Hyponatremia acute Ischemic cerebrovascular accident (CVA) acute Mitral stenosis acute Physical debility acute Pulmonary hypertension acute Thrush acute Scalp lesion chronic [facility] Work Phone: Evaluation note* Diagnosis Neuroendocrine cancer Other malignant neoplasm without specification of site Cancer of cerebral meninges Malignant neoplasm of cerebral meninges [facility] Diagnosis Neuroendocrine cancer- Primary Other malignant neoplasm without specification of site documented [facility]* Diagnosis Onset Date Resolution Status Acute [...] stenosis, non-rheumatic acute Paroxysmal atrial fibrillation acute [facility] Work Phone: Evaluation note* Diagnosis Cancer of cerebral meninges- Primary Malignant neoplasm of cerebral meninges Neuroendocrine cancer Other malignant neoplasm without specification of site [facility] Diagnosis Neuroendocrine cancer- Primary Other malignant neoplasm without specification of site [facility]* Diagnosis Cancer of cerebral meninges- Primary Malignant neoplasm of cerebral meninges documented [facility] Diagnosis Cancer of cerebral meninges- Primary Malignant neoplasm of cerebral meninges documented [facility] Diagnosis Cancer of cerebral meninges- Primary Malignant neoplasm of cerebral meninges documented [facility] Diagnosis Cancer of cerebral meninges- Primary Malignant neoplasm of cerebral meninges documented [facility] Diagnosis Onset Date Resolution Status Carotid artery bruit acute Ischemic cerebrovascular accident (CVA) acute half-way current use of amiodarone acute Mitral valve stenosis, non-rheumatic acute Paroxysmal atrial fibrillation acute [facility] Work Phone: Evaluation note* Diagnosis Cancer of cerebral meninges Malignant neoplasm of cerebral meninges [facility] Diagnosis Cancer of cerebral meninges- Primary Malignant neoplasm of cerebral meninges Neuroendocrine cancer Other malignant neoplasm without specification of site [facility] Diagnosis Cancer of cerebral meninges Malignant neoplasm of cerebral meninges Neuroendocrine cancer Other malignant neoplasm without specification of site [facility] Diagnosis Cancer of cerebral meninges Malignant neoplasm of cerebral meninges Neuroendocrine cancer Other malignant neoplasm without specification of site [facility]* Diagnosis Cancer of cerebral meninges- Primary Malignant neoplasm of cerebral meninges documented [facility]* Diagnosis Cancer of cerebral meninges Malignant neoplasm of cerebral meninges documented [facility]* Diagnosis Cancer of cerebral meninges- Primary Malignant neoplasm of cerebral meninges Skin change Other symptoms involving skin and integumentary tissues Alopecia Alopecia, unspecified S/P radiation therapy Convalescence following radiotherapy [facility]* Diagnosis Epidural hematoma- Primary Nontraumatic extradural hemorrhage Seizure Other convulsions Paroxysmal atrial fibrillation Atrial fibrillation Murmur Undiagnosed cardiac murmurs documented [facility]* Diagnosis Epidural hematoma- Primary Nontraumatic extradural hemorrhage Seizure Other convulsions Paroxysmal atrial fibrillation Atrial fibrillation Murmur Undiagnosed cardiac murmurs documented [facility] this [facility] Discharge instructions Additional Instructions Follow-up with your primary care physician at your scheduled appointment tomorrow. Return with worsening symptoms or any other concerns.[facility] Work Phone: Progress note Author Odilon Melchor [facility] Note Date/Time February 26, 2025 10:54am [facility] [address] [place] [address], [address] [place] [address] OFFICE VISIT Date of Service: 02/26/25 MR#: [id number] Acct: [id number] Name: SARAH MCGUIRE Rep #: [id number] : 1945 Provider: Dr. Jovanni Melchor MD Age/Sex: 79/F Location: [facility].BN Status: Signed HPI HPI Chief Complaint: Establish [...] was transferred to [facility] ([facility] [place]). Initially the possibility of a stroke was [...] in December 2024). She has seen a php magento developer. Mini-Mental status exam was 28/30 in December [...] 2022. [facility] [place]. On neurosurgical evaluation, she was not felt [...] 2 M FU Chief Complaint: Establish Care Maintenance Porter Required: No Accompanied by: Daughter Allergies No Known Allergies Allergy (Verified 02/26/25 09:54) Have you fallen in the past year?: No PFSH Medical History meterman current use of amiodarone Paroxysmal atrial fibrillation [...] Venegas MD; Dr. Corey Kiran MD ~ [facility] Work Phone: Reason for referral (narrative)* Consultation (Urgent) - New Request Specialty Diagnoses / Procedures Referred By Martha maciel Referred To Contact Oncology Diagnoses Skull mass Shaye Weston APRN-CNP [address] [place] [address] Referral ID Status Reason Start Date Expiration Date V isits Requested Visits Authorized [id number] New Request 09/30/2022 10/25/2023 1 1 * MRI/CAT Scan (Emergency) - New Request Specialty Diagnoses / Procedures Referred By Martha maciel Referred To Contact Diagnoses Skull mass Procedures CT ABDOMEN/PELVIS WITH CONTRAST CHG CT SCAN,ABDOMENT AND PELVIS,W CONTRAST Shaye Weston APRN-CNP [address] [place] [address] Referral ID Status Reason Start Date Expiration Date V isits Requested Visits Authorized [id number] New Request 09/30/2022 10/25/2023 1 1 * MRI/CAT Scan (Emergency) - New Request Specialty Diagnoses / Procedures Referred By Martha maciel Referred To Contact Diagnoses Skull mass Procedures CT CHEST WITH CONTRAST CHG DIAGNOSTIC COMPUTED TOMOGRAPHY THORAX W/CONTRAST Shaye Weston APRN-CNP [address] [place] [address] Referral ID Status Reason Start Date Expiration Date V isits Requested Visits Authorized [id number] New Request 09/30/2022 10/25/2023 1 1 [facility] (narrative)No reason for referral information availableWMansfield Hospital Work Phone: Reason for visit Narrative* Auth/Cert Specialty Diagnoses / Procedures Referred By Martha maciel Referred To Contact Diagnoses Epidural hematoma Subdural Hematoma Jl Nazario MB [facility] [address] [facility] [address] [place] [address] Phone: tel: fax: [facility] [address] [place] [address] Referral ID Status Reason Start Date Expiration Date Visits Re quested Visits Authorized [id number] 1 1 [facility] Family History No Family History Records Found Relationship Condition Age at Onset Recorded Date/T emir father Cerebrovascular accident (CVA) Unknown Cardiac disease Unknown mother Diabetes mellitus Unknown Advance Directives No Advanced Directives Records Found Advance Directive Response Recorded Date/ Time Living Will No July 31 8:17pm Power of Film Historian No July 31, 2021 8:17pm Advance Directive Response Recorded Date/ Time Living Will No July 31 7:17pm Power of Film Historian No July 31, 2021 7:17pm Advance Directive Response Recorded Date/ Time Name of Medical Power of Film Historian herbie Rapp December 10, 2022 11:50am Living Will Yes December 10, 2022 1 1:50am Power of Film Historian Yes December 10, 2022 11:50am Latest Code [...] Date/ Time Name of Medical Power of Film Historian herbie Rapp December 10, 2022 11:50am Name of Medical Power of Film Historian Reggie boudreaux December 23, 2022 6:27pm Living Will Yes December 23, 2022 6:27pm Power of Film Historian Yes December 23 6:27pm Advance Directive Response Recorded Date/ Time Living Will Yes December 23, 2022 5:27pm Power of Film Historian Yes December 23 5:27pm Date Activated Date [...] Do you have a Healthcare Power of Film Historian? Yes September 27, 2024 9:32am Name of Medical Power of Film Historian Alexsandra September 27, 2024 9:32am Date Activated [...] Do you have a Healthcare Power of Film Historian? Yes September 27, 2024 9:32am Name of Medical Power of Film Historian Alexsandra September 27, 2024 9:32am Do you have a Healthcare Power of Film Historian? No November 07, 2024 11:15am Advance Directive Response Recorded Date/ Time Do you have a Healthcare Power of Film Historian? Yes September 27, 2024 9:32am Name of Medical Power of Film Historian Alexsandra September 27, 2024 9:32am Do you have a Healthcare Power of Film Historian? No November 07, 2024 11:15am Do you have a Healthcare Power of Film Historian? Yes November 13, 2024 10:32am Name of Medical Power of Film Historian Alexsandratahir Grullon November 13, 2024 10:32am Advance Directive Response Recorded Date/ Time Do you have a Healthcare Power of Film Historian? Yes December 03, 2024 5:33pm Do you have a Healthcare Power of Film Historian? Yes September 27, 2024 9:32am Name of Medical Power of Film Historian Alexsandra September 27, 2024 9:32am Do you have a Healthcare Power of Film Historian? No November 07, 2024 11:15am Do you have a Healthcare Power of Film Historian? Yes November 13, 2024 10:32am Name of Medical Power of Film Historian Alexsandratahir Grullon November 13, 2024 10:32am Advance Directive Response Recorded Date/ Time Do you have a Healthcare Power of Film Historian? Yes December 03, 2024 11:06pm Do you have a Healthcare Power of Film Historian? Yes September 27, 2024 9:32am Name of Medical Power of Film Historian Alexsandra September 27, 2024 9:32am Do you have a Healthcare Power of Film Historian? No November 07, 2024 11:15am Do you have a Healthcare Power of Film Historian? Yes November 13, 2024 10:32am Name of Medical Power of Film Historian Alexsandra Grullon November 13, 2024 10:32am Advance Directive Response Recorded Date/ Time Do you have a Healthcare Power of Film Historian? Yes December 03, 2024 11:06pm Do you have a Healthcare Power of Film Historian? No November 07, 2024 11:15am Do you have a Healthcare Power of Film Historian? Yes November 13, 2024 10:32am Name of Medical Power of Film Historian Alexsandra Grullon November 13, 2024 10:32am Advance Directive Response Recorded Date/ Time Do you have a Healthcare Power of Film Historian? Yes December 03, 2024 11:06pm Do you have a Healthcare Power of Film Historian? Yes November 13, 2024 10:32am Name of Medical Power of Film Historian Alexsandra Grullon November 13, 2024 10:32am Chief [...] RVR AFIB WITH RVR STROKE STROKE S/P [facility] 12/24/22 Reason for Visit Acute blood [...] Carotid artery bruit Ischemic cerebrovascular accident (CVA) meterman current use of amiodarone Mitral valve stenosis, [...] Intracranial epidural hematoma November 12, 2024 6:16pm meterman current use of amiodarone November 12, 2024 [...] Intracranial epidural hematoma November 12, 2024 6:16pm meterman current use of amiodarone November 12, 2024 [...] Intracranial epidural hematoma November 12, 2024 6:16pm meterman current use of amiodarone November 12, 2024 [...] Intracranial epidural hematoma November 12, 2024 6:16pm half-way current use of amiodarone Rocio 9th, 2025 [...] 6:16pm Generalized muscle weakness November 12 6:16pm meterman current use of amiodarone November 12, 2024 [...] Elevated LFTs December 11, 2024 3:10p m meterman current use of amiodarone December 11, 2024 [...] 6:16pm Generalized muscle weakness November 12 6:16pm meterman current use of amiodarone November 12, 2024 [...] cerebrovascular accident (CVA) December 11, 2024 3:10pm half-way current use of amiodarone December 11, 2024 [...] 6:16pm Generalized muscle weakness November 12 6:16pm half-way current use of amiodarone November 12, 2024 [...] cerebrovascular accident (CVA) December 11, 2024 3:10pm meterman current use of amiodarone December 11, 2024 [...] 6:16pm Generalized muscle weakness November 12 6:16pm half-way current use of amiodarone November 12, 2024 [...] cerebrovascular accident (CVA) December 11, 2024 3:10pm meterman current use of amiodarone December 11, 2024 [...] 6:16pm Generalized muscle weakness November 12 6:16pm meterman current use of amiodarone November 12, 2024 [...] cerebrovascular accident (CVA) December 11, 2024 3:10pm half-way current use of amiodarone December 11, 2024 [...] cerebrovascular accident (CVA) January 18, 2025 3:27pm half-way current use of amiodarone Augu st 2024 [...] 6:16pm Generalized muscle weakness November 12 6:16pm meterman current use of amiodarone November 12, 2024 [...] cerebrovascular accident (CVA) December 11, 2024 3:10pm half-way current use of amiodarone December 11, 2024 [...] cerebrovascular accident (CVA) January 18, 2025 3:27pm half-way current use of amiodarone Augu 2024 3:27pm [...] 6:16pm Generalized muscle weakness November 12 6:16pm half-way current use of amiodarone November 12, 2024 [...] cerebrovascular accident (CVA) December 11, 2024 3:10pm half-way current use of amiodarone December 11, 2024 [...] cerebrovascular accident (CVA) January 18, 2025 3:27pm meterman current use of amiodarone Augu st 2024 3:27pm Paroxysmal atrial fibrillation January 182024 3:27pm History of resection of meningioma Septe mber 2024 9:39am Mild cognitive impairment February 9:39am Chronic subdural hematoma February 9:39am Bilateral carotid bruits March 13 2:39pm Elevated LFTs March 13, 2025 2: 39pm Heart murmur March 13, 2025 2: 39pm Ischemic cerebrovascular accident (CVA) March 13, 2025 2:39pm meterman current use of amiodarone Octo 2024 2:39pm Paroxysmal atrial fibrillation March 132024 2:39pm Reason for Referral Specialty Diagnoses / Procedures Referred By Martha t Referred To Contact Diagnoses Preop exam for internal medicine Skull mass Essential hypertension Hyperlipidemia, unspecified hyperlipidemia type Procedures PREPARE TO TRANSFUSE OR RED BLOOD CELLS Qian Randle MD [address] [facility] [address] [place] [address] Referral ID Status Reason Start Date Expiration Date V isits Requested Visits Authorized [id number] New Request 10/08/2022 11/02/2023 1 1 Specialty Diagnoses / Procedures Referred By Martha t Referred To Contact Diagnoses Skull mass Procedures MRI STEALTH BRAIN MS MRI BRAIN COMBO Shaye Weston, HYGIENE COORDINATOR-SUPERVISOR MACHINE SETTER [address] [place] [address] Referral ID Status Reason Start Date Expiration Date V isits Requested Visits Authorized [id number] New Request 10/08/2022 11/02/2023 1 1 Specialty Diagnoses / Procedures Referred By Martha t Referred To Contact Diagnoses Neuroendocrine cancer Cancer of cerebral meninges Procedures MRI BRAIN WITH PERFUSION MS MRI BRAIN Nimo Sher MD [address] [place] [address] Referral ID Status Reason Start Date Expiration Date V isits Requested Visits Authorized [id number] New Request 01/06/2023 01/31/2024 1 1 Specialty Diagnoses / Procedures Referred By Contac t Referred To Contact Diagnoses Neuroendocrine cancer Cancer of cerebral meninges Procedures NUC PET NEUROENDOCRINE CHG NUC THERAPY HYPERTHYROID SUBSEQUENT Nimo Bueno MD [address] [place] [address] Referral ID Status Reason Start Date Expiration Date V isits Requested Visits Authorized [id number] New Request 01/06/2023 01/31/2024 1 1 Specialty Diagnoses / Procedures Referred By Contac t Referred To Contact Diagnoses Cancer of cerebral meninges Procedures MRI BRAIN WITH PERFUSION MS MRI BRAIN COMBO Nimo Bueno MD [address] [place] [address] Referral ID Status Reason Start Date Expiration Date V isits Requested Visits Authorized [id number] New Request 03/15/2023 04/08/2024 1 1 Specialty Diagnoses / Procedures Referred By Contac t Referred To Contact Diagnoses Cancer of cerebral meninges Procedures MRI BRAIN WITH PERFUSION MS MRI BRAIN COMBO Kristine Blue, HYGIENE COORDINATOR-SUPERVISOR MACHINE SETTER [address] [facility] [address] [place] [address] Referral ID Status Reason Start Date Expiration Date V isits Requested Visits Authorized [id number] New Request 05/19/2023 06/12/2024 1 1 Referral ID Status Reason Start Date Expiration Date V isits Requested Visits Authorized [id number] New Request 08/23/2023 09/16/2024 1 1 Specialty Diagnoses / Procedures Referred By Contac t Referred To Contact Diagnoses Cancer of cerebral meninges Neuroendocrine cancer Procedures NUC PET NEUROENDOCRINE CHG PET IMAGING CT ATTENUATION SKULL BASE MID-THIGH Nimo Bueno MD [address] [place] [address] Referral ID Status Reason Start Date Expiration Date V isits Requested Visits Authorized [id number] New Request 11/29/2023 12/23/2024 1 1 Specialty Diagnoses / Procedures Referred By Contac t Referred To Contact Diagnoses Cancer of cerebral meninges Neuroendocrine cancer Procedures MRI BRAIN WITH PERFUSION CHG MRI BRAIN BRAIN STEM W/O W/CONTRAST MATERIAL Nimo Bueno MD [address] [place] [address] Referral ID Status Reason Start Date Expiration Date V isits Requested Visits Authorized [id number] New Request 11/29/2023 12/23/2024 1 1 Specialty Diagnoses / Procedures Referred By Contac t Referred To Contact Diagnoses Cancer of cerebral meninges Procedures MRI BRAIN WITH PERFUSION CHG MRI BRAIN BRAIN STEM W/O W/CONTRAST MATERIAL Kristine Blue APRN-SUPERVISOR MACHINE SETTER [address] [facility] [address] [place] [address] Referral ID Status Reason Start Date Expiration Date V isits Requested Visits Authorized [id number] New Request 03/14/2024 04/08/2025 1 1 Summary [...] Status: Inactive Member Role Status Dates Dr. Mnoika Venegas MD Primary Care Provider, Referrin g [...] ESQUIVEL Attending Provider, Referring Provide r Active Quality Assurance Coordinator Relationship Specialty Start Date End Date Monika Venegas MD [address] [place] [phone] PCP - General Family Medicine 09/28/22 Quality Assurance Coordinator Relationship Specialty Start Date End Date Monika Venegas MD [address] [place] [phone] PCP - General Family Medicine 09/28/22 Quality Assurance Coordinator Relationship Specialty Start Date End Date Monika Venegas MD [address] [place] [phone] PCP - General Family Medicine 09/28/22 Quality Assurance Coordinator Relationship Specialty Start Date End Date Monika Venegas MD [address] [place] [phone] PCP - General Family Medicine 09/28/22 Quality Assurance Coordinator Relationship Specialty Start Date End Date Monika Venegas MD [address] [place] [address] PCP - General Family Medicine [...] Pr ovider, Attending Provider, Referring Provider Active Quality Assurance Coordinator Relationship Specialty Start Date End Date Monika Venegas MD [address] [place] [phone] PCP - General Family Medicine 09/28/22 Quality Assurance Coordinator Relationship Specialty Start Date End Date Monika Venegas MD [address] [place] [address] PCP - General Family Medicine 09/28/22 Quality Assurance Coordinator Relationship Specialty Start Date End Date Monika Venegas MD [address] [place] [address] PCP - General Family Medicine 09/28/22 Team [...] Rivera MD Other Provider Active Jagdish Moncada BEVERAGE HOST, BEVERAGE HOST-C Other Provider Active Kourtney Beasley BEVERAGE HOST, BEVERAGE HOST-C Other Provider Active Lolly Alejandra PA, PA [...] Rivera MD Other Provider Active Jagdish Moncada BEVERAGE HOST, BEVERAGE HOST-C Other Provider Active Kourtney Beasley BEVERAGE HOST, BEVERAGE HOST-C Other Provider Active Lolly Alejandra PA, PA [...] Burns MD Other Provider Active Dr. Howard iRvera MD Other Provider Active Jagdish Moncada BEVERAGE HOST, BEVERAGE HOST-C Other Provider Active Kourtney Beasley BEVERAGE HOST, BEVERAGE HOST-C Other Provider Active Lolly Alejandra PA, PA Other Provider Active Dr. Alix Hudson DO Attending Provider Active Quality Assurance Coordinator Relationship Specialty Start Date End Date Monika Venegas MD [address] [place] [address] PCP - General Family Medicine 09/28/22 Quality Assurance Coordinator Relationship Specialty Start Date End Date Monika Venegas MD [address] [place] [address] PCP - General Family Medicine 09/28/22 Quality Assurance Coordinator Relationship Specialty Start Date End Date Monika Venegas MD [address] [place] [phone] PCP - General Family Medicine 09/28/22 Quality Assurance Coordinator Relationship Specialty Start Date End Date Monika Venegas MD [address] [place] [address] PCP - General Family Medicine 09/28/22 Quality Assurance Coordinator Relationship Specialty Start Date End Date Monika Venegas MD [address] [place] [phone] PCP - General Family Medicine 09/28/22 Quality Assurance Coordinator Relationship Specialty Start Date End Date Monika Venegas MD [address] [place] [address] PCP - General Family Medicine 09/28/22 Quality Assurance Coordinator Relationship Specialty Start Date End Date Monika Venegas MD [address] [place] [address] PCP - General Family Medicine 09/28/22 Quality Assurance Coordinator Relationship Specialty Start Date End Date Monika Venegas MD [address] [place] [address] PCP - General Family Medicine 09/28/22 Quality Assurance Coordinator Relationship Specialty Start Date End Date Monika Venegas MD [address] [place] [phone] PCP - General Family Medicine 09/28/22 Team Status: Inactive Member Role Status Dates Dr. Monika Venegas MD Primary Care Provider Active Lolly MCKENZIE, PA Attending Provider, Referr ing Provider Active Team Status: Active Member Role Status Dates Dr. Monika Venegas MD Primary Care Prov ider, Attending Provider, Referring Provider Active Quality Assurance Coordinator Relationship Specialty Start Date End Date Monika Venegas MD [address] [place] [address] PCP - General Family Medicine 09/28/22 Quality Assurance Coordinator Relationship Specialty Start Date End Date Monika Venegas MD [address] [place] [address] PCP - General Family Medicine 09/28/22 Quality Assurance Coordinator Relationship Specialty Start Date End Date Monika Venegas MD [address] [place] [phone] PCP - General Family Medicine 09/28/22 Quality Assurance Coordinator Relationship Specialty Start Date End Date Monika Venegas MD [address] [place] [phone] PCP - General Family Medicine 09/28/22 Team [...] September 27, 2024 End: September 27, 2024 Quality Assurance Coordinator Relationship Specialty Start Date End Date Monika [...] 2024 End: November 29, 2024 Dr. Deepak yBrd MD Other Provider Active Star t: November [...] Active Start: November 13, 2024 Dr. Jo-Ann Arisa DO Admit Provider Active Start: November 13, [...] Jo-Ann Arias , DO Attending Provider Act hernietta Start: November 19, 2024 Dr. Jo-Ann Arias [...] Active Start: December 04, 2024 Dr. Alix Hudosn , Attending Provider Active S tart: December [...] S tart: December 05, 2024 Dr. Alix Hudsno DO Other Provider Active Start : December [...] Status: Inactive Member Role/Relationship Status Dates Dr. Mnoika Venegas MD Primary Care Provider Active Start: [...] Provider Active Start: December 24, 2024 Celeste KASIER MD Attending Provider Active Start: December 24, 2024 Team Status: Inactive Member Role/Relationship Status Dates Dr. Corey Kiran MD Primary Care Provider Active Start: December 25, 2024 End: December 25, 2024 Cyndie Jacome BEVERAGE HOST, BEVERAGE HOST-C Attending Provider Active Start: December 25, 2024 [...] 2024 End: December 10, 2024 Cyndie Jacome BEVERAGE HOST, BEVERAGE HOST-C Attending Provider Active Start: December 10, 2024 [...] 2024 End: December 25, 2024 Cyndie Jacome BEVERAGE HOST, BEVERAGE HOST-C Attending Provider Active Start: December 25, 2024 [...] 2024 End: December 25, 2024 Cyndie Jacome NP, BEVERAGE HOST-C Attending Provider Active Start: December 25, 2024 [...] Dr. Jo-Ann Arias DO Attending Provider Act henriteta Start: November 12, 2024 End: November 29, [...] Provider Active Start: November 22, 2024 Dr. Jo-nAn Arias DO Attending Provider Act henrietta Start: [...] 2024 End: December 10, 2024 Cyndie Jacome BEVERAGE HOST, BEVERAGE HOST-C Attending Provider Active Start: December 10, 2024 [...] 2024 End: December 10, 2024 Cyndie Jacome BEVERAGE HOST, BEVERAGE HOST-C Attending physician Active Start: December 10, 2024 [...] 2024 End: December 25, 2024 Cyndie Jacome BEVERAGE HOST, BEVERAGE HOST-C Attending physician Active Start: December 25, 2024 [...] Status: Active Member Role/Relationship Status Dates Dr. Monkia Venegas MD Primary care physician Active Start: [...] 2024 End: December 10, 2024 Cyndie Jacome BEVERAGE HOST, BEVERAGE HOST-C Attending physician Active Start: December 10, 2024 [...] 2024 End: December 25, 2024 Cyndie Jacome BEVERAGE HOST, BEVERAGE HOST-C Attending physician Active Start: December 25, 2024 [...] 2025 End: March 13, 2025 Jagdish Moncada BEVERAGE HOST, BEVERAGE HOST-C Attending physician Active Start: March 13, 2025 End: March 13, 2025 Reason for Visit (unrecogniz ed section and content) Reason Comments New Patient Specialty Diagnoses / Procedures Referred By Contjose t Referred To Contact Neurologic Surgery Diagnoses Neoplasm of bone of skull Monika Venegas MD [address] [place] [address] [facility] [address] [place] [phone] Referral ID Status Reason Start Date Expiration Date V isits Requested Visits Authorized [id number] Pending Review 09/27/2022 10/22/2023 1 1 Reason Comments Pre-operative Consultation Specialty Diagnoses / Procedures Referred By Martha t Referred To Contact PreOp Diagnoses Skull mass Shaye Weston, HYGIENE COORDINATOR-SUPERVISOR MACHINE SETTER [address] [place] [phone] Referral ID Status Reason Start Date Expiration Date V isits Requested Visits Authorized [id number] New Request 10/07/2022 11/01/2023 1 1 Specialty Diagnoses / Procedures Referred By Marlysac t Referred To Contact Diagnoses Skull mass Procedures MRI STEALTH BRAIN MS MRI BRAIN COMBO Shaye Weston Staci, HYGIENE COORDINATOR-SUPERVISOR MACHINE SETTER [address] [place] [phone] Referral ID Status Reason Start Date Expiration Date V isits Requested Visits Authorized [id number] New Request 10/08/2022 11/02/2023 1 1 Specialty Diagnoses / Procedures Referred By Marlysac t Referred To Contact Diagnoses Neuroendocrine cancer Cancer of cerebral meninges Procedures MRI BRAIN WITH PERFUSION MS MRI BRAIN COMBO Nimo Bueno MD [address] [place] [phone] Referral ID Status Reason Start Date Expiration Date V isits Requested Visits Authorized [id number] New Request 01/06/2023 01/31/2024 1 1 Specialty Diagnoses / Procedures Referred By Contac t Referred To Contact Diagnoses Neuroendocrine cancer Cancer of cerebral meninges Procedures NUC PET NEUROENDOCRINE CHG NUC THERAPY HYPERTHYROID SUBSEQUENT Nimo Bueno MD [address] [place] [phone] Referral ID Status Reason Start Date Expiration Date V isits Requested Visits Authorized [id number] New Request 01/06/2023 01/31/2024 1 1 Reason Comments Continuity Of Care Specialty Diagnoses / Procedures Referred By Contac t Referred To Contact Diagnoses Neuroendocrine cancer Cancer of cerebral meninges Procedures RAD ONC SIMULATION Nimo Bueno MD [address] [place] [address] Referral ID Status Reason Start Date Expiration Date Visits Re quested Visits Authorized [id number] Closed 01/06/2023 01/31/2024 1 1 Reason Comments Consult Reason Comments On Treatment Visit Reason Comments On Treatment Visit Reason Comments Follow-up Specialty Diagnoses / Procedures Referred By Contac t Referred To Contact Diagnoses Cancer of cerebral meninges Procedures MRI BRAIN WITH PERFUSION MS MRI BRAIN COMBO Kristine Bleu, HYGIENE COORDINATOR-SUPERVISOR MACHINE SETTER [address] [place] [address] Referral ID Status Reason Start Date Expiration Date V isits Requested Visits Authorized [id number] New Request 05/19/2023 06/12/2024 1 1 Specialty Diagnoses / Procedures Referred By Contac t Referred To Contact Diagnoses Cancer of cerebral meninges Procedures MRI BRAIN WITH PERFUSION MS MRI BRAIN COMBO Nimo Bueno MD [address] [place] [phone] Referral ID Status Reason Start Date Expiration Date V isits Requested Visits Authorized [id number] New Request 08/23/2023 09/16/2024 1 1 Reason Comments Follow-up Specialty Diagnoses / Procedures Referred By Contac t Referred To Contact Diagnoses Cancer of cerebral meninges Neuroendocrine cancer Procedures NUC PET NEUROENDOCRINE CHG PET IMAGING CT ATTENUATION SKULL BASE MID-THIGH Nimo Bueno MD [address] [place] [address] Referral ID Status Reason Start Date Expiration Date V isits Requested Visits Authorized [id number] New Request 11/29/2023 12/23/2024 1 1 Specialty Diagnoses / Procedures Referred By Contac t Referred To Contact Diagnoses Cancer of cerebral meninges Neuroendocrine cancer Procedures MRI BRAIN WITH PERFUSION CHG MRI BRAIN BRAIN STEM W/O W/CONTRAST MATERIAL Nimo Bueno MD [address] [place] [address] Referral ID Status Reason Start Date Expiration Date V isits Requested Visits Authorized [id number] New Request 11/29/2023 12/23/2024 1 1 Specialty Diagnoses / Procedures Referred By Martha maciel Referred To Contact Diagnoses Cancer of cerebral meninges Procedures MRI BRAIN WITH PERFUSION CHG MRI BRAIN BRAIN STEM W/O W/CONTRAST MATERIAL Salts, Kristine Haro, HYGIENE COORDINATOR-SUPERVISOR MACHINE SETTER [address] [place] [address] Referral ID Status Reason Start Date Expiration Date V isits Requested Visits Authorized [id number] New Request 03/14/2024 04/08/2025 1 1 Scheduled [...] section and content) DATE CREATED AUTHOR 01/19/2025 [facility] DATE CREATED AUTHOR AUTHOR'S ORGANIZ ATION 03/22/2025 [facility] FOR RECORDS PERTAINING TO PATIENTS WHO ARE [...] BE BASED ON THE PRIMARY CLINICAL RECORDS. [employer] [facility]. provides no warranty or guarantee of the accuracy or completeness of information in this document.
[2025-03-26 22:56] LABS: AST(SGOT) 38 U/L (<=31); Alanine Aminotransfer ALT/SGPT 46 U/L (<=34); Albumin, Serum 4.0 g/dL (3.4-4.8); Alkaline Phosphatase 83 U/L (35-104); Anion Gap 12 (5-15); BUN 16 mg/dL (4-19); BUN/Creat Ratio 22.8 RATIO (10-20); Calcium,Total 9.2 mg/dL (7.6-11.0); Carbon Dioxide 21.1 mmol/L (21.0-32.0); Chloride 101 mmol/L (98-108); Globulin 2.4 g/dL (2.2-4.2); Glucose 103 mg/dL (70-99); Magnesium 2.0 mg/dL (1.5-2.2); Potassium 3.8 mmol/L (3.3-5.1)
== END | disposition home or self-care (01) ==
LOC: LABSPEC 19:02 → MFPLAB 19:55
PROVIDERS: PCP Family Medicine; Referring Provider Family Medicine; Visit Provider Family Medicine
DX: E87.6 Hypokalemia (principal)
CPT/HCPCS: 36415; 80053; 83735